=== PATIENT | female | born 1995 | race Caucasian/White ===

== ENCOUNTER 2023-03-25 09:02 | Outpatient (OUT) | payer OTHER, SELFPAY ==
--- NOTE | 2023-03-25 10:35 | P.CN_ITS ---
Consult Note: HPI Data of Consult Patient: new to practice Consult date: 03/25/23 Requesting Physician: Violette Hernadez MD Primary Care Provider: Yossi Golden MD Consult Narrative Reason for consult: low back and bilateral leg pain and numbness, mid back and neck pain Narrative: this is a pleasant 27-year-old female who presents for evaluation. She notes various pains, including pain throughout the low back that radiates into the bilateral lower extremities and causes numbness and tingling. Lumbar MRI was reviewed, which is significant for a disc bulge with resultant canal stenosis at L4-L5. She completed physical therapy for this and has engaged in provider directed home exercises for greater than three months, but this has not helped resolve the problem. She actually was hospitalized twice for these symptoms. She also notes increasing pain throughout her neck and mid back. She has trialed various [id number] medications, including Tylenol and ibuprofen, which provide limited relief. She otherwise denies adverse medication side affects or loss of bowel or bladder control. cc:: CC: Violette Hernadez MD Review of Systems ROS Status of ROS 10 or more systems reviewed and unremarkable except as noted in history and below Musculoskeletal Reports: joint pain (left knee) Exam Constitutional Common normals: no apparent distress, oriented x3 and healthy appearing Neck & C-Spine Other: tenderness throughout the cervical spine and paraspinal musculature. Pain is elicited with flexion, extension, and lateral rotation of the cervical spine. Facet loading maneuvers are positive bilaterally. Respiratory Common normals: normal respiratory effort Effort & inspection: able to speak in complete sentences Back & Pelvis Other: tenderness to palpation throughout the lumbar spine and paraspinal musculature. Pain is elicited with flexion, extension, and lateral rotation of the lumbar spine. Facet loading maneuvers are positive bilaterally. Strength noted to be unremarkable throughout the bilateral lower extremities except for decreased strength rated at four out of five in the bilateral quadriceps femoris. Sensation noted to be unremarkable throughout the bilateral lower extremities except for dysesthesia in the bilateral L4, L5 dermatomal distributions. coordination remains intact. Gait remains nonantalgic. Extremity Common normals: normal to inspection Neuro Common normals: oriented x3, CN's II-XII intact bilaterally and no focal motor deficits Psych Common normals: mental status grossly normal and cooperative Assessment and Plan Assessment and Plan (1) Lumbar stenosis with neurogenic claudication: (2) Lumbar disc displacement without myelopathy: (3) Lumbar spondylosis: (4) Thoracic back pain: (5) Cervicalgia: Plan this is a pleasant 27-year-old female who presents for evaluation. She has failed physical and medical modalities, as noted above. In terms of her low back pain with radiation into the bilateral lower extremities, given her symptom atology, imaging findings, and failure to respond to conservative measures, including physical therapy and provider directed home exercises, it is prudent to attempt bilateral L4 transforaminal epidural steroid injection to provide analgesia. She is in agreement with this plan. In terms of her new work neck and mid back pain, I would like her to undergo a course of physical therapy twice weekly for 4-6 weeks. I'll also have her undergo an x-ray of the cervical and thoracic spines. She expressed understanding. Medications were reviewed. I will have her trial gabapentin 300 mg 3 times a day. She expressed understanding. She will follow-up after the imaging and procedure are complete.
== END 2023-03-25 09:03 | disposition home or self-care (01) ==
LOC: PM 09:02
PROVIDERS: PCP Family Medicine; Visit Provider Anesthesiology
DX: M54.2 Cervicalgia (principal); M54.6 Pain in thoracic spine; M47.816 Spondylosis without myelopathy or radiculopathy, lumbar region; M51.26 Other intervertebral disc displacement, lumbar region; M48.062 Spinal stenosis, lumbar region with neurogenic claudication
CPT/HCPCS: G0463

== ENCOUNTER 2023-03-25 10:21 | Outpatient (OUT) | payer OTHER, SELFPAY ==
--- NOTE | 2023-03-25 10:29 | XR_ITS ---
The [place] [id number] Patient Name: GAEL RUBY MRN: [id number] date: 1995 Sex: F Assigned Patient Location: [facility] Current Patient Location: [facility] Accession/Order Number: [id number] Exam Date: 03/25/2023 10:35 Report Date: 03/25/2023 11:14 At the request of: LISANDRA GIEDRAGABBY Procedure: XR thoracic spine 2V EXAMINATION: XR thoracic spine 2V HISTORY: Thoracic Back Pain COMPARISON: No relevant comparison available. FINDINGS: BONES: Mild left convex curvature thoracic spine. No fracture, spondylolisthesis, or bone lesion. DISC SPACES: No significant disc height narrowing, subluxation, or endplate abnormality. PARASPINOUS: Negative. No paraspinous abnormality is seen. OTHER: Negative. IMPRESSION: 1. Left convex curvature of thoracic spine, 9 degrees. 2. No acute bone abnormality or significant degenerative changes. Electronically authenticated by: ANA VO Date: 03/25/2023 11:14
--- NOTE | 2023-03-25 10:29 | XR_ITS ---
The [address] [address] Patient Name: GAEL RUBY MRN: [id number] date: 1995 Sex: F Assigned Patient Location: [facility] Current Patient Location: [facility] Accession/Order Number: [id number] Exam Date: 03/25/2023 10:35 Report Date: 03/25/2023 11:11 At the request of: LISANDRA CROCKER Procedure: XR cervical spine 5V EXAMINATION: XR cervical spine 5V HISTORY: Cervicalgia ; chronic neck and upper back pain COMPARISON: No relevant comparison available. FINDINGS: BONES: Straightening of the normal lordotic curvature. No fracture, spondylolisthesis, bone lesion. No significant degenerative facet arthropathy. DISC SPACES: No significant disc height narrowing, subluxation, or endplate abnormality. PARASPINOUS: Negative. No paraspinous abnormality is seen. OTHER: Negative. IMPRESSION: 1. Mild straightening of normal lordotic curvature of cervical spine; positioning versus muscle spasm. 2. No acute bone abnormality or significant degenerative changes. Electronically authenticated by: ANA VO Date: 03/25/2023 11:11
== END 2023-03-25 10:22 | disposition home or self-care (01) ==
LOC: RAD 10:23
PROVIDERS: PCP Family Medicine; Visit Provider Anesthesiology
DX: M54.2 Cervicalgia (principal); M54.6 Pain in thoracic spine
CPT/HCPCS: 72050; 72070; G0463

== ENCOUNTER 2023-04-22 08:32 | Day surgery (SDC) | payer OTHER, SELFPAY ==
[2023-04-22 09:37] VITALS: BP 127/88; PULSE 104; RESP 14; TEMP 36.4; O2SAT 97
[2023-04-22 09:40] LABS: Glucometer 154 mg/dL (74-106)
[2023-04-22] MEDS: BUPIVACAINE HCL 0.25% PF 25 MG/10 ML VIAL INJ (10:32)
[2023-04-22] MEDS: IOHEXOL 240 MG/ML - 10 ML VIAL INJ (10:32)
[2023-04-22] MEDS: LIDOCAINE HCL 2% PF 100 MG/5 ML VIAL INJ (10:32)
[2023-04-22] MEDS: TRIAMCINOLONE ACETONIDE 40 MG/ML VIAL INJ (10:33)
--- NOTE | 2023-04-22 10:34 | W.PM.PROCNOT ---
Date of procedure: 04/22/23 Pre-op diagnosis: Lumbar stenosis with neurogenic claudication Procedure: Procedure: Bilateral L4-5 transforaminal epidural steroid injection Medications: Bupivacaine 0.25% 2cc, lidocaine 1% 1cc, kenalog 80mg The patient was seen and examined in the preoperative holding area.? Informed consent was obtained and placed on the chart.? Patient was brought to the medical procedure unit and placed in the prone position where a timeout was completed verifying the correct patient, procedure site, position, and planned special equipment using sterile aseptic technique.? Under direct fluoroscopic visualization a 25-gauge Quincke tipped spinal needle was advanced at level left L4-5 to the designated neural foramen where contrast dye was injected to show adequate spread.? There was no evidence of vascular or adverse uptake.? Epidural spread was appreciated.? The above-mentioned injectate was then placed in a 1.5 mL aliquot preceded by negative aspiration.? The needle was removed. The same procedure, at the same level, was completed on the opposite side. ? Patient was taken to the postprocedural recovery area and monitored for an appropriate length of time before found suitable for discharge in the accompaniment of a responsible adult. Anesthesia: None Surgeon: Violette Hernadez Pathology: none sent Condition: stable Disposition: no change
[2023-04-22 14:12] VITALS: BP 130/73; BP 139/94; PULSE 91; PULSE 96; RESP 18; O2SAT 94; O2SAT 95
== END 2023-04-22 10:39 | disposition home or self-care (01) ==
LOC: SURGOUT 08:38
PROVIDERS: PCP Family Medicine; Visit Provider Anesthesiology
DX: M48.062 Spinal stenosis, lumbar region with neurogenic claudication (principal)
CPT/HCPCS: 36415; 64483; 82948; Q9966

== ENCOUNTER 2023-05-03 12:58 | Outpatient (OUT) | payer OTHER, SELFPAY ==
--- NOTE | 2023-05-03 13:04 | PM.CN ---
Consult Note: HPI Data of Consult Patient: known to practice within the last 3 years Consult date: 05/03/23 Requesting Physician: GISELA MCGEE NP Primary Care Provider: Yossi Golden MD Consult Narrative Narrative: Patient is here for f/u of chronic low back pain. She had TFESI done 04/22/23 with 80-90% relief of pain continued through today with increased fx. no radiculopathy . Pain today is located only in lower back, worse with ROM. . No new sensorimotor sx or bowel or bladder issues. Medication regimen assists patient to better complete ADLs. Denies adverse medication SE. OARRS reviewed. We did discuss ability to repeat procedure as needed. cc:: CC: GISELA MCGEE NP Review of Systems ROS Status of ROS 10 or more systems reviewed and unremarkable except as noted in history and below Musculoskeletal Reports: back pain PFSH PFS Medical History (Updated 04/11/23 @ 13:13 by Brook Oswald) Surgical History Meds Home Medications and Allergies Home Medications Medication Instructions Recorded Confirmed Type albuterol 90 mcg/actuation aerosol mcg inhalation QDAY PRN dyspnea 03/25/23 History inhaler black cohosh 200 mg capsule 160 mg PO DAILY 03/25/23 04/22/23 History dulaglutide 3 mg/0.5 mL 3 mg subcut QWEEK 03/25/23 04/22/23 History subcutaneous pen injector (Trulicity) gabapentin 300 mg capsule 300 mg PO TID 03/25/23 04/22/23 History glipizide 10 mg tablet 10 mg PO BID 03/25/23 04/22/23 History hydroxyzine HCl 25 mg tablet 25 mg PO TID PRN itching 03/25/23 04/22/23 History omeprazole 40 mg capsule,delayed 40 mg PO DAILY 03/25/23 04/22/23 History release sertraline 50 mg tablet (Zoloft) 50 mg PO DAILY 03/25/23 04/22/23 History tizanidine 4 mg capsule (Zanaflex) 4 mg PO TID PRN muscle spasticity 03/25/23 04/22/23 History Allergies Allergy/AdvReac Type Severity Reaction Status Date / Time amoxicillin Allergy Nausea Verified 03/25/23 14:12 egg Allergy Abdominal Verified 03/25/23 14:12 Pain ketorolac Allergy dyspnea Verified 03/25/23 14:12 latex Allergy itching Verified 03/25/23 14:12 meperidine [From Demerol] Allergy shortness Verified 03/25/23 14:12 of breath Penicillins Allergy Rash Verified 03/25/23 14:12 Exam Constitutional Documenting provider has reviewed patient's vital signs: yes Common normals: no apparent distress, oriented x3, no limitations, healthy appearing, alert and well nourished General appearance: cooperative, comfortable and well developed Nutritional appearance: overweight Orientation/consciousness: Yes awake, Yes oriented to person, Yes oriented to place and Yes oriented to time HENMT Common normals: normocephalic and moist oral mucous membranes Respiratory Common normals: normal respiratory effort, no retractions and no use of accessory muscles Effort & inspection: able to speak in complete sentences and symmetric chest movement Back & Pelvis Lumbar spine/lower back: normal to inspection, lumbar ROM normal, pain with ROM, paraspinal muscle tenderness and straight leg raise negative bilaterally Other: mildly positive facet loading pain bilat lumbar muscle strength 5/5 bilat with intact sensation Extremity Common normals: normal to inspection, full ROM, normal capillary refill and no pedal edema Assessment and Plan Assessment and Plan (1) Lumbar stenosis with neurogenic claudication: (2) Lumbar disc displacement without myelopathy: (3) Lumbar spondylosis: Plan f/u 6 months or sooner if needed
== END 2023-05-03 12:59 | disposition home or self-care (01) ==
LOC: PM 13:00
PROVIDERS: PCP Family Medicine; Visit Provider Nurse Practitioner
DX: M47.816 Spondylosis without myelopathy or radiculopathy, lumbar region (principal); M51.26 Other intervertebral disc displacement, lumbar region; M48.062 Spinal stenosis, lumbar region with neurogenic claudication
CPT/HCPCS: G0463

== ENCOUNTER 2023-06-10 18:29 | Emergency (ER) | payer OTHER, SELFPAY ==
[2023-06-10] VITALS (14 sets, daily range): BP systolic 116–149; BP diastolic 65–111; PULSE 110; RESP 18; TEMP 36.7; O2SAT 93–99; BMI 38.0
--- NOTE | 2023-06-10 19:00 | CT_ITS ---
The [address] [address] Patient Name: GAEL RUBY MRN: [id number] date: 1995 Sex: F Assigned Patient Location: ER Current Patient Location: ER Accession/Order Number: [id number] Exam Date: 06/10/2023 19:35 Report Date: 06/10/2023 20:36 At the request of: ASHLI MUSTAFA Procedure: CT abdomen pelvis w con CT ABDOMEN/PELVIS WITH IV CONTRAST. INDICATION: Right lower quad pain. COMPARISON: There are no other studies available for comparison. TECHNIQUE: Contiguous axial images were obtained from the lung bases to the pelvic floor following the intravenous administration of contrast. Coronal and sagittal reformations are provided. Approximately ML ml Omnipaque 350 was administered intravenously. FINDINGS: LOWER LUNGS: Clear. LIVER/BILIARY TREE: No mass. No intrahepatic ductal dilatation. GALLBLADDER: No significant gallbladder wall thickening. No radiopaque stone. CBD: Normal CBD. SPLEEN: Normal in size. PANCREAS: No acute findings. No peripancreatic fluid or inflammation. No pancreatic duct dilatation. No discrete mass. ADRENALS: Normal. KIDNEYS: No hydronephrosis. No radiopaque calculus. STOMACH AND BOWEL: Stomach is unremarkable. No dilated bowel loops. No bowel wall thickening. APPENDIX: Normal appendix. PERITONEAL CAVITY: No fluid. No fat stranding. ABDOMINAL WALL: No subcutaneous stranding. No subcutaneous fluid collection. LYMPH NODES: No mesenteric or retroperitoneal lymphadenopathy by CT criteria. ABDOMINAL AORTA: No aneurysm. PELVIS: No acute abnormality. MUSCULOSKELETAL: No acute osseous abnormality. CT/CT abdomen pelvis w con IMPRESSION: No acute abnormality in the abdomen or pelvis. Normal appendix. Electronically authenticated by: DOT BUSTILLO Date: 06/10/2023 20:36
--- NOTE | 2023-06-10 19:10 | ED.ABDPAIN1 ---
HPI - Abdominal Pain General Chief Complaint: Abdominal Pain Stated Complaint: ABDOMINAL PAIN Time Seen by Provider: 06/10/23 18:47 Source: patient and family Mode of arrival: walk-in Limitations: no limitations History of Present Illness HPI narrative: patient is a 27-year-old female who presents to the emergency department for the evaluation of right-sided abdominal pain. patient states last night she developed pain in the right flank wrapping into the right lower quadrant. She has had no fevers or vomiting but reports nausea. She states anytime she eats she develops diarrhea. She has had a previous cholecystectomy as well as a previous hysterectomy. No medications were taken prior to arrival. She denies any urinary symptoms. Related Data Home Medications Medication Instructions Recorded Confirmed albuterol 90 mcg/actuation aerosol 90 mcg inhalation QDAY PRN dyspnea 03/25/23 06/10/23 inhaler dulaglutide 3 mg/0.5 mL 3 mg subcut QWEEK 03/25/23 06/10/23 [facility] gabap[facility] 300 mg capsule 300 mg PO TID 03/25/23 06/10/23 glipizide 10 mg tablet 10 mg PO BID 03/25/23 06/10/23 hydroxyzine HCl 25 mg tablet 25 mg PO TID PRN itching 03/25/23 06/10/23 omeprazole 40 mg capsule,delayed 40 mg PO DAILY 03/25/23 06/10/23 release sertraline 50 mg tablet (Zoloft) 50 mg PO DAILY 03/25/23 06/10/23 tizanidine 4 mg capsule (Zanaflex) 4 mg PO TID PRN muscle spasticity 03/25/23 06/10/23 Previous Rx's Medication Instructions Recorded dicyclomine 20 mg tablet 20 mg PO QID PRN abdominal pain 06/10/23 #12 tabs promethazine 25 mg tablet 25 mg PO Q6H PRN nausea and 06/10/23 vomiting #12 tabs Allergies Allergy/AdvReac Type Severity Reaction Status Date / Time amoxicillin Allergy Nausea Verified 06/10/23 18:34 egg Allergy Abdominal Verified 06/10/23 18:34 Pain ketorolac Allergy dyspnea Verified 06/10/23 18:34 latex Allergy itching Verified 06/10/23 18:34 meperidine [From Demerol] Allergy shortness Verified 06/10/23 18:34 of breath Penicillins Allergy Rash Verified 06/10/23 18:34 Review of Systems ROS Constitutional Denies: fever or chills Ears, nose, mouth, and throat Denies: throat pain Respiratory Denies: shortness of breath Gastrointestinal Reports: abdominal pain, nausea and diarrhea; Denies: vomiting Musculoskeletal Denies: back pain Integumentary/Breast Denies: rash Neurological Denies: headache Allergic/Immunologic Denies: hives [facility] Medical History (Updated 06/10/23 @ 20:50 by GOPAL Hansen) Surgical History Social History Smoking status: Current every day smoker Exam Narrative Exam Narrative: Gen.: Awake, alert, in no distress Head: Normocephalic, atraumatic ENT: Moist mucous membranes Respiratory: No respiratory distress, lungs clear bilaterally Cardio: Regular rate and rhythm Gastrointestinal: Abdomen is soft, nondistended and tender in the right lower quadrant, no point tenderness. No guarding or rebound. No CVA tenderness noted Extremities: Moves extremities equally Psych: Normal mood and affect Neuro: No focal neuro deficit Skin: Warm, dry, intact Constitutional Vital Signs, click to edit/add: Last Vital Signs Temp 98.1 F 06/10/23 18:34 Pulse 110 H 06/10/23 18:34 Resp 18 06/10/23 18:34 BP 132/96 H 06/10/23 20:00 Pulse Ox 98 06/10/23 20:10 O2 Del Method Room Air 06/10/23 18:34 Course Vital Signs Vital signs: Vital Signs Temperature 98.1 F 06/10/23 18:34 Pulse Rate 110 H 06/10/23 18:34 Respiratory Rate 18 06/10/23 18:34 Blood Pressure 149/111 H 06/10/23 18:34 Pulse Oximetry 98 06/10/23 18:34 Oxygen Delivery Method Room Air 06/10/23 18:34 Temperature 98.1 F 06/10/23 18:34 Pulse Rate 110 H 06/10/23 18:34 Respiratory Rate 18 06/10/23 18:34 Blood Pressure 132/96 H 06/10/23 20:00 Pulse Oximetry 98 06/10/23 20:10 Oxygen Delivery Method Room Air 06/10/23 18:34 MDM - Abdominal Pain MDM Narrative Medical decision making narrative: abdomen is soft and benign, lab studies with no significant abnormalities and CT of the abdomen and pelvis with normal appendix, no other abnormalities noted. Patient is discharged home with Levsin and Phenergan for comfort. Follow-up with PCP and return to the Emergency Room if symptoms change or worsen. She has a soft, benign abdomen at discharge with stable vital signs. Medical Records Attestation: I reviewed the patient's medical records. Lab Data Attestation: I reviewed the patient's lab results. Labs: Lab Results 06/10/23 06/10/23 Range/Units 18:45 19:22 WBC 12.7 H (4.0-11.0) 10^3/uL RBC 4.91 (4.20-5.40) 10^6/uL Hgb 14.9 (12.0-16.0) g/dL Hct 44.6 (36.0-48.0) % MCV 90.8 (81.0-99.0) fL MCH 30.3 (26.7-34.0) pg MCHC 33.4 (29.9-35.2) g/dL RDW 12.9 (11.0-15.0) % Plt Count 322 (150-450) 10^3/uL MPV 10.1 (9.5-13.5) fL Neut % (Auto) 56.8 (43.0-75.0) % Lymph % (Auto) 36.6 (20.5-60.0) % Giles % (Auto) 4.9 (1.7-12.0) % Eos % (Auto) 0.9 (0.9-7.0) % Baso % (Auto) 0.4 (0.2-2.0) % Neut # (Auto) 7.2 H (1.4-6.5) 10^3/uL Lymph # (Auto) 4.6 H (1.2-3.8) 10^3/uL Giles # (Auto) 0.6 (0.3-0.8) 10^3/uL Eos # (Auto) 0.1 (0.0-0.7) 10^3/uL Baso # (Auto) 0.1 (0.0-0.1) 10^3/uL Abs Immat Gran (auto) 0.05 H (0.00-0.03) 10^3/uL Imm/Tot Granulo (auto) 0.4 (0.0-0.5) % Sodium 141 (136-145) mmol/L Potassium 3.8 (3.5-5.1) mmol/L Chloride 103 (98-107) mmol/L Carbon Dioxide 26.7 (21.0-32.0) mmol/L Anion Gap 15.1 BUN 10.0 (7.0-18.0) mg/dL Creatinine 0.77 (0.55-1.02) mg/dL Est GFR ( Amer) >60 (>=60) Est GFR (Non-Af Amer) >60 (>=60) BUN/Creatinine Ratio 13.0 Glucose 109 H (74-106) mg/dL Lactate 1.5 (0.4-2.0) mmol/L Calcium 9.2 (8.5-10.1) mg/dL Total Bilirubin 0.3 (0.2-1.0) mg/dL AST 31 (15-37) U/L ALT 52 (14-59) U/L Alkaline Phosphatase 104 (46-116) U/L Total Protein 7.8 (6.4-8.2) g/dL Albumin 3.8 (3.4-5.0) g/dL Globulin 4.0 g/dL Albumin/Globulin Ratio 0.9 Lipase 252.0 (73.0-393.0) U/L Urine Color Yellow (YELLOW) Urine Clarity Clear (CLEAR) Urine pH 6.0 (5.0-9.0) Ur Specific [place] 1.020 (1.005-1.025) Urine Protein Negative (NEG/TRACE) mg/dL Urine Glucose (UA) Negative (NEGATIVE) mg/dL Urine Ketones Trace A (NEGATIVE) mg/dL Urine Occult Blood Negative (NEGATIVE) Urine Nitrite Negative (NEGATIVE) Urine Bilirubin Negative (NEGATIVE) Urine Urobilinogen 1.0 (0.2-1.0) EU/dL Ur Leukocyte Esterase Negative (NEGATIVE) Imaging Data CT scan - abdomen: Attestation: I have reviewed the pertinent imaging results. Radiologist's impression: Procedure: CT abdomen pelvis w con CT ABDOMEN/PELVIS WITH IV CONTRAST. INDICATION: Right lower quad pain. COMPARISON: There are no other studies available for comparison. TECHNIQUE: Contiguous axial images were obtained from the lung bases to the pelvic floor following the intravenous administration of contrast. Coronal and sagittal reformations are provided. Approximately ML ml Omnipaque 350 was administered intravenously. FINDINGS: LOWER LUNGS: Clear. LIVER/BILIARY TREE: No mass. No intrahepatic ductal dilatation. GALLBLADDER: No significant gallbladder wall thickening. No radiopaque stone. CBD: Normal CBD. SPLEEN: Normal in size. PANCREAS: No acute findings. No peripancreatic fluid or inflammation. No pancreatic duct dilatation. No discrete mass. ADRENALS: Normal. KIDNEYS: No hydronephrosis. No radiopaque calculus. STOMACH AND BOWEL: Stomach is unremarkable. No dilated bowel loops. No bowel wall thickening. APPENDIX: Normal appendix. PERITONEAL CAVITY: No fluid. No fat stranding. ABDOMINAL WALL: No subcutaneous stranding. No subcutaneous fluid collection. LYMPH NODES: No mesenteric or retroperitoneal lymphadenopathy by CT criteria. ABDOMINAL AORTA: No aneurysm. PELVIS: No acute abnormality. MUSCULOSKELETAL: No acute osseous abnormality. IMPRESSION: No acute abnormality in the abdomen or pelvis. Normal appendix. Electronically authenticated by: DOT BUSTILLO Date: 06/10/2023 20:36 Discharge Plan Discharge Chief Complaint: Abdominal Pain Clinical Impression: Abdominal pain Patient Disposition: Home, Self-Care Time of Disposition Decision: 20:50 Condition: Good Prescriptions / Home Meds: New dicyclomine 20 mg tablet 20 mg PO QID PRN (Reason: abdominal pain) Qty: 12 0RF promethazine 25 mg tablet 25 mg PO Q6H PRN (Reason: nausea and vomiting) Qty: 12 0RF No Action omeprazole 40 mg capsule,delayed release(DR/EC) 40 mg PO DAILY Trulicity 3 mg/0.5 mL pen injector 3 mg subcut QWEEK hydroxyzine HCl 25 mg tablet 25 mg PO TID PRN (Reason: itching) glipizide 10 mg tablet 10 mg PO BID tizanidine [Zanaflex] 4 mg capsule 4 mg PO TID PRN (Reason: muscle spasticity) sertraline [Zoloft] 50 mg tablet 50 mg PO DAILY albuterol 90 mcg/actuation aerosol 90 mcg inhalation QDAY PRN (Reason: dyspnea) gabapentin 300 mg capsule 300 mg PO TID Instructions: Abdominal Pain (ED) Stand Alone Forms: Portal Instructions Referrals: Yossi Golden MD [Primary Care Provider] - 1 week
[2023-06-10] MEDS: ONDANSETRON PF 4 MG/2 ML VIAL IV (19:22)
[2023-06-10] MEDS: 0.9 % SODIUM CHLORIDE 1,000 ML 999 ML IV (19:22)
[2023-06-10] MEDS: HYDROMORPHONE HCL 1 MG/ML CARTRIDGE IVP (19:22)
[2023-06-10 19:37] LABS: Hematocrit 44.6 % (36.0-48.0); Hemoglobin 14.9 g/dL (12.0-16.0); Mean Corpuscular HGB Conc 33.4 g/dL (29.9-35.2); Mean Corpuscular Hemoglobin 30.3 pg (26.7-34.0); Mean Corpuscular Volume 90.8 fL (81.0-99.0); Mean Platelet Volume 10.1 fL (9.5-13.5); Platelet Count 322 10^3/uL (150-450); Red Blood Count 4.91 10^6/uL (4.20-5.40); Red Cell Distribution Width 12.9 % (11.0-15.0); White Blood Count 12.7 10^3/uL (4.0-11.0)
[2023-06-10 19:47] LABS: Bilirubin Urine NEGATIVE (NEGATIVE); Blood Urine NEGATIVE (NEGATIVE); Clarity Urine CLEAR (CLEAR); Color Urine YELLOW (YELLOW); Glucose Urine UA NEGATIVE (NEGATIVE); Ketones Urine TRACE mg/dL (NEGATIVE); Leukocyte Esterase Urine NEGATIVE (NEGATIVE); Nitrite Urine NEGATIVE (NEGATIVE); Protein Urine NEGATIVE (NEG/TRACE)
[2023-06-10 20:17] LABS: Lactate/Lactic Acid 1.5 mmol/L (0.4-2.0)
[2023-06-10 20:24] LABS: Alanine Aminotransferase 52 U/L (14-59); Albumin Globulin Ratio 0.9; Albumin Level 3.8 g/dL (3.4-5.0); Alkaline Phosphatase 104 U/L (46-116); Anion Gap 15.1; Aspartate Amino Transferase 31 U/L (15-37); Bilirubin Total 0.3 mg/dL (0.2-1.0); Calcium 9.2 mg/dL (8.5-10.1); Carbon Dioxide 26.7 mmol/L (21.0-32.0); Chloride 103 mmol/L (98-107); Estimated GFR (African America >60 (>=60); Estimated GFR (Non-African Ame >60 (>=60); Glucose 109 mg/dL (74-106); Potassium 3.8 mmol/L (3.5-5.1); Sodium 141 mmol/L (136-145); Total Protein 7.8 g/dL (6.4-8.2)
[2023-06-10] MEDS: HYOSCYAMINE SULFATE 0.125 MG TAB.SUBL SL (20:27)
[2023-06-10] MEDS: PROMETHAZINE HCL 25 MG/ML VIAL 12.5 MG IV (20:27)
[2023-06-10 20:47] LABS: Urine Microscopic Indicated NO
[2023-06-10] MEDS: DICYCLOMINE HCL 10 MG CAPSULE 20 MG PO (21:23)
[2023-06-10 21:27] LABS: Segmented Neut Absolute Manual 7.62 10^3/uL (1.4-6.5)
[2023-06-10 21:28] LABS: Lymphocytes Absolute Manual 4.82 10^3/uL (1.20-3.80); Monocytes Absolute Manual 0.25 10^3/uL (0.30-0.80)
== END 2023-06-10 21:28 | disposition home or self-care (01) ==
PROVIDERS: Physician Assistant; Emergency Provider Emergency Medicine; PCP Family Medicine
DX: R10.9 Unspecified abdominal pain (principal); Z79.899 Other long term (current) drug therapy; Z79.85 Long-term (current) use of injectable non-insulin antidiabetic drugs; F17.210 Nicotine dependence, cigarettes, uncomplicated
CPT/HCPCS: 36415; 74177; 80053; 81003; 83605; 83690; 85025; 85027; 96361; 96374; 96375; 99285; J1170; Q9967

== ENCOUNTER 2024-01-15 03:16 | Emergency (ER) | payer OTHER, SELFPAY ==
[2024-01-15 03:25] VITALS: BP 167/100; PULSE 104; TEMP 36.5; O2SAT 96; BMI 39.5
--- NOTE | 2024-01-15 04:00 | PC.NURSE ---
Pt presents to ER for lower right sided abdominal pain and diarrhea Pt has had a cholecystectomy and a hysterectomy Pt states she has had diarrhea for a few days but the pain started at 2200 last night and she was not able to go to sleep so she came into the ER Pt's at bedside states this has been an ongoing problem for over several weeks Upon further conversation it is found that pt has been to three different emergency rooms since the beginning of the month for this problem Pt states here symptoms come and go depending on what she eats Pt states she called Dr. Medeiros's office and they told her they would not see her unless the symptoms have been going on for over 3 months Pt's spouse at bedside expressed concern and the desire for a GI evaluation to which this nurse agreed is probably in the pt's future Pt and spouse were reassured that this nurse will give them phone numbers to set up and GI follow up before discharge Pt is able to ambulate to the restroom without assistance from this nurse, pt given permission to do so
[2024-01-15] MEDS: 0.9 % SODIUM CHLORIDE 1,000 ML 1000 ML IV (04:09)
[2024-01-15] MEDS: ONDANSETRON PF 4 MG/2 ML VIAL IV (04:09)
[2024-01-15 04:19] LABS: Basophils Percent Auto 0.5 % (0.2-2.0); Eosinophils Absolute Auto 0.1 10^3/uL (0.0-0.7); Eosinophils Percent Auto 1.3 % (0.9-7.0); Hematocrit 40.9 % (36.0-48.0); Hemoglobin 13.6 g/dL (12.0-16.0); Immature Granulocytes Abs Auto 0.06 10^3/uL (0.00-0.03); Immature Granulocytes Pct Auto 0.7 % (0.0-0.5); Lymphocytes Absolute Auto 3.4 10^3/uL (1.2-3.8); Lymphocytes Percent Auto 39.7 % (20.5-60.0); Mean Corpuscular HGB Conc 33.3 g/dL (29.9-35.2); Mean Corpuscular Hemoglobin 30.1 pg (26.7-34.0); Mean Corpuscular Volume 90.5 fL (81.0-99.0); Mean Platelet Volume 10.8 fL (9.5-13.5); Monocytes Absolute Auto 0.5 10^3/uL (0.3-0.8); Neutrophils Absolute Auto 4.5 10^3/uL (1.4-6.5); Neutrophils Percent Auto 51.8 % (43.0-75.0); Platelet Count 272 10^3/uL (150-450); Red Blood Count 4.52 10^6/uL (4.20-5.40); Red Cell Distribution Width 12.8 % (11.0-15.0); White Blood Count 8.6 10^3/uL (4.0-11.0)
[2024-01-15 04:20] LABS: Bilirubin Urine NEGATIVE (NEGATIVE); Blood Urine NEGATIVE (NEGATIVE); Clarity Urine CLEAR (CLEAR); Color Urine YELLOW (YELLOW); Glucose Urine UA NEGATIVE (NEGATIVE); Ketones Urine NEGATIVE (NEGATIVE); Leukocyte Esterase Urine NEGATIVE (NEGATIVE); Nitrite Urine NEGATIVE (NEGATIVE); Protein Urine NEGATIVE (NEG/TRACE); Urobilinogen Urine 0.2 EU/dL (0.2-1.0)
[2024-01-15 04:26] LABS: Bacteria Urine NONE SEEN #/HPF (NONE SEEN); Crystals Seen? None Seen #/HPF (None Seen); Mucus Urine TRACE (NONE SEEN); RBC Urine NONE SEEN #/HPF (0-2); Squamous Epithelial Cell Urine RARE #/LPF (NONE/RARE); WBC Urine 0-2 #/HPF (NONE SEEN)
[2024-01-15 04:27] LABS: Amorphous Sediment Urine RARE; Cast Seen? NONE SEEN #/LPF (NONE SEEN); Urine Culture Indicated NO
[2024-01-15 04:28] LABS: Anion Gap 13.3; BUN Creatinine Ratio 16.9; Calcium 9.5 mg/dL (8.5-10.1); Carbon Dioxide 28.3 mmol/L (21.0-32.0); Chloride 102 mmol/L (98-107); Estimated GFR (African America >60 (>=60); Estimated GFR (Non-African Ame >60 (>=60); Glucose 185 mg/dL (74-106); Potassium 3.6 mmol/L (3.5-5.1); Sodium 140 mmol/L (136-145)
--- NOTE | 2024-01-15 05:03 | ED_ITS ---
HPI HPI - General Adult General Chief complaint: Abdominal Pain Stated complaint: ABD PAIN Time Seen by Provider: 01/15/24 03:29 Source: patient Mode of arrival: walk-in Limitations: no limitations History of Present Illness HPI narrative: 28 female presents for diarrhea. She has been having watery stools multiple times a day for the last several weeks. She was seen at another hospital emergency department and at that time she was told she had a stomach virus. She has not given a stool specimen. She has had no hematochezia or fever. No recent travel or hospitalization or antibiotic use. Related Data Home Medications ?Medication ?Instructions ?Recorded ?Confirmed albuterol 90 mcg/actuation aerosol 90 mcg inhalation QDAY PRN dyspnea 03/25/23 06/10/23 inhaler dulaglutide 3 mg/0.5 mL 3 mg subcut QWEEK 03/25/23 06/10/23 subcutaneous pen injector (Trulicity) gabapentin 300 mg capsule 300 mg PO TID 03/25/23 06/10/23 glipizide 10 mg tablet 10 mg PO BID 03/25/23 06/10/23 hydroxyzine HCl 25 mg tablet 25 mg PO TID PRN itching 03/25/23 06/10/23 omeprazole 40 mg capsule,delayed 40 mg PO DAILY 03/25/23 06/10/23 release sertraline 50 mg tablet (Zoloft) 50 mg PO DAILY 03/25/23 06/10/23 tizanidine 4 mg capsule (Zanaflex) 4 mg PO TID PRN muscle spasticity 03/25/23 06/10/23 Previous Rx's ?Medication ?Instructions ?Recorded dicyclomine 20 mg tablet 20 mg PO QID PRN abdominal pain 06/10/23 #12 tabs promethazine 25 mg tablet 25 mg PO Q6H PRN nausea and 06/10/23 vomiting #12 tabs Allergies Allergy/AdvReac Type Severity Reaction Status Date / Time amoxicillin Allergy Nausea Verified 01/15/24 03:24 egg Allergy Abdominal Verified 01/15/24 03:24 Pain ketorolac Allergy dyspnea Verified 01/15/24 03:24 latex Allergy itching Verified 01/15/24 03:24 meperidine [From Demerol] Allergy shortness Verified 01/15/24 03:24 of breath Penicillins Allergy Rash Verified 01/15/24 03:24 Opioid HPI Opioid Management Most Recent Opioid Data: Last Pain Scale 4 04/22/23 09:37 Review of Systems ROS Narrative A ten point review of systems is negative except as noted above. 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 - Acquired stenosis of unspecified nasolacrimal duct (ICD-10) H/O thrombosis ?Z86.718 - Personal history of other venous thrombosis and embolism (ICD-10) Low back pain ?M54.50 - Low back pain, unspecified (ICD-10) Heartburn ?R12 - Heartburn (ICD-10) Anxiety ?F41.9 - Anxiety disorder, unspecified (ICD-10) Acid reflux ?K21.9 - Gastro-esophageal reflux disease without esophagitis (ICD-10) Diabetes ?E11.9 - Type 2 diabetes mellitus without complications (ICD-10) Smoker ?F17.200 - Nicotine dependence, unspecified, uncomplicated (ICD-10) Surgical History Social History Smoking status: Current every day smoker Exam Narrative Exam Narrative: Nurses note and vital signs reviewed and patient is not hypoxic. General: The patient appears well and in no apparent distress. Patient is resting comfortably on cart. Skin: Warm, dry, no pallor noted. There is no rash noted. Head: Normocephalic, atraumatic Eye: Normal conjunctiva, no drainage Ears, Nose, Mouth, and Throat: oral mucosa is moist. Nares patent. Cardiovascular: Regular Rate and Rhythm Respiratory: Patient is in no distress, no accessory muscle use, lungs are clear to auscultation, no wheezing, rales or rhonchi Back: non-tender GI: Soft and nontender Musculoskeletal: The patient has no evidence of calf tenderness, no pitting criss ma, symmetrical pulses noted bilaterally Neurological: A&O, normal speech Psychiatric: Cooperative Constitutional Vital Signs, click to edit/add: Last Vital Signs Temp 97.7 F 01/15/24 03:25 Pulse 104 H 01/15/24 03:25 Resp 18 01/15/24 03:25 BP 167/100 H 01/15/24 03:25 Pulse Ox 96 01/15/24 03:25 O2 Del Method Room Air 01/15/24 03:25 Course Vital Signs Vital signs: Vital Signs Temperature 97.7 F 01/15/24 03:25 Pulse Rate 104 H 01/15/24 03:25 Respiratory Rate 18 01/15/24 03:25 Blood Pressure 167/100 H 01/15/24 03:25 Pulse Oximetry 96 01/15/24 03:25 Oxygen Delivery Method Room Air 01/15/24 03:25 Temperature 97.7 F 01/15/24 03:25 Pulse Rate 104 H 01/15/24 03:25 Respiratory Rate 18 01/15/24 03:25 Blood Pressure 167/100 H 01/15/24 03:25 Pulse Oximetry 96 01/15/24 03:25 Oxygen Delivery Method Room Air 01/15/24 03:25 Medical Decision Making MDM Narrative Medical decision making narrative: Blood work is essentially normal. She was given IV fluids and she will follow-up with her PCP. Treatment diagnosis and follow-up were discussed with the patient. Lab Data Lab results reviewed: Yes I reviewed the patient's lab results Labs: Lab Results 01/15/24 Range/Units 04:00 WBC 8.6 (4.0-11.0) 10^3/uL RBC 4.52 (4.20-5.40) 10^6/uL Hgb 13.6 (12.0-16.0) g/dL Hct 40.9 (36.0-48.0) % MCV 90.5 (81.0-99.0) fL MCH 30.1 (26.7-34.0) pg MCHC 33.3 (29.9-35.2) g/dL RDW 12.8 (11.0-15.0) % Plt Count 272 (150-450) 10^3/uL MPV 10.8 (9.5-13.5) fL Neut % (Auto) 51.8 (43.0-75.0) % Lymph % (Auto) 39.7 (20.5-60.0) % [place] % (Auto) 6.0 (1.7-12.0) % Eos % (Auto) 1.3 (0.9-7.0) % Baso % (Auto) 0.5 (0.2-2.0) % Neut # (Auto) 4.5 (1.4-6.5) 10^3/uL Lymph # (Auto) 3.4 (1.2-3.8) 10^3/uL [place] # (Auto) 0.5 (0.3-0.8) 10^3/uL Eos # (Auto) 0.1 (0.0-0.7) 10^3/uL Baso # (Auto) 0.0 (0.0-0.1) 10^3/uL Abs Immat Gran (auto) 0.06 H (0.00-0.03) 10^3/uL Imm/Tot Granulo (auto) 0.7 H (0.0-0.5) % Sodium 140 (136-145) mmol/L Potassium 3.6 (3.5-5.1) mmol/L Chloride 102 (98-107) mmol/L Carbon Dioxide 28.3 (21.0-32.0) mmol/L Anion Gap 13.3 BUN 12.0 (7.0-18.0) mg/dL Creatinine 0.71 (0.55-1.02) mg/dL Est GFR ( Amer) >60 (>=60) Est GFR (Non-Af Amer) >60 (>=60) BUN/Creatinine Ratio 16.9 Glucose 185 H (74-106) mg/dL Calcium 9.5 (8.5-10.1) mg/dL Urine Color Yellow (YELLOW) Urine Clarity Clear (CLEAR) Urine pH 6.0 (5.0-9.0) Ur Specific [place] 1.020 (1.005-1.025) Urine Protein Negative (NEG/TRACE) mg/dL Urine Glucose (UA) Negative (NEGATIVE) mg/dL Urine Ketones Negative (NEGATIVE) mg/dL Urine Occult Blood Negative (NEGATIVE) Urine Nitrite Negative (NEGATIVE) Urine Bilirubin Negative (NEGATIVE) Urine Urobilinogen 0.2 (0.2-1.0) EU/dL Ur Leukocyte Esterase Negative (NEGATIVE) Urine RBC None seen (0-2) #/HPF Urine WBC 0-2 A (NONE SEEN) #/HPF Ur Squamous Epith Cells Rare (NONE/RARE) #/LPF Urine Crystals None seen (None Seen) #/HPF Amorphous Sediment Rare Urine Bacteria None seen (NONE SEEN) #/HPF Urine Casts None seen (NONE SEEN) #/LPF Urine Mucus Trace A (NONE SEEN) Ur Culture Indicated? No Discharge Plan Discharge Stand Alone Forms: Portal Instructions Chief Complaint: Abdominal Pain Clinical Impression: Diarrhea Patient Disposition: Home, Self-Care Time of Disposition Decision: 05:02 Condition: Good Mode of Transportation: Private Vehicle Prescriptions / Home Meds: No Action dicyclomine 20 mg tablet 20 mg PO QID PRN (Reason: abdominal pain) Qty: 12 0RF promethazine 25 mg tablet 25 mg PO Q6H PRN (Reason: nausea and vomiting) Qty: 12 0RF omeprazole 40 mg capsule,delayed release(DR/EC) 40 mg PO DAILY Trulicity 3 mg/0.5 mL pen injector 3 mg subcut QWEEK hydroxyzine HCl 25 mg tablet 25 mg PO TID PRN (Reason: itching) glipizide 10 mg tablet 10 mg PO BID tizanidine [Zanaflex] 4 mg capsule 4 mg PO TID PRN (Reason: muscle spasticity) sertraline [Zoloft] 50 mg tablet 50 mg PO DAILY albuterol 90 mcg/actuation aerosol 90 mcg inhalation QDAY PRN (Reason: dyspnea) gabapentin 300 mg capsule 300 mg PO TID Print Language: Djib[place]ian Instructions: Acute Diarrhea (ED) Referrals: Yossi Golden MD [Primary Care Provider] - 1 week
[2024-01-15 07:30] LABS: Adenovirus F 40/41 NOT DETECTED (NOT DETECTE); Astrovirus NOT DETECTED (NOT DETECTE); Campylobacter NOT DETECTED (NOT DETECTE); Cryptosporidium NOT DETECTED (NOT DETECTE); Cyclospora cayetanensis NOT DETECTED (NOT DETECTE); Entamoeba histolytica NOT DETECTED (NOT DETECTE); Enteroaggregative E.coli NOT DETECTED (NOT DETECTE); Enteropathogenic E.coli NOT DETECTED (NOT DETECTE); Enterotoxigenic E. coli NOT DETECTED (NOT DETECTE); Giardia lamblia NOT DETECTED (NOT DETECTE); Norovirus GI/GII NOT DETECTED (NOT DETECTE); Plesiomonas shigelloides NOT DETECTED (NOT DETECTE); Rotavirus A NOT DETECTED (NOT DETECTE); Salmonella NOT DETECTED (NOT DETECTE); Sapovirus NOT DETECTED (NOT DETECTE); Shiga-like toxin-producing E.C NOT DETECTED (NOT DETECTE); Shigella/Enteroinvasive E.coli NOT DETECTED (NOT DETECTE); Vibrio NOT DETECTED (NOT DETECTE); Vibrio cholerae NOT DETECTED (NOT DETECTE)
[2024-01-15 07:32] LABS: Yersinia enterocolitica DETECTED (NOT DETECTE)
== END 2024-01-15 05:17 | disposition home or self-care (01) ==
PROVIDERS: Emergency Provider Emergency Medicine; PCP Family Medicine
DX: A04.6 Enteritis due to Yersinia enterocolitica (principal); Z79.899 Other long term (current) drug therapy; Z86.14 Personal history of Methicillin resistant Staphylococcus aureus infection; Z86.718 Personal history of other venous thrombosis and embolism; F41.9 Anxiety disorder, unspecified; K21.9 Gastro-esophageal reflux disease without esophagitis; F17.210 Nicotine dependence, cigarettes, uncomplicated
CPT/HCPCS: 36415; 80048; 81001; 85025; 87045; 87046; 87427; 87507; 96374; 99284

== ENCOUNTER 2024-01-20 21:41 | Emergency (ER) | payer OTHER, SELFPAY ==
[2024-01-20 21:48] VITALS: BP 169/112; PULSE 112; TEMP 36.8; O2SAT 98; BMI 39.5
[2024-01-20] MEDS: MORPHINE SULFATE 2 MG/ML SYRINGE 4 MG IV (22:37)
[2024-01-20] MEDS: 0.9 % SODIUM CHLORIDE 1,000 ML 999 ML IV (22:37)
[2024-01-20] MEDS: ONDANSETRON PF 4 MG/2 ML VIAL IV (22:37)
[2024-01-20 22:41] VITALS: BP 139/97
[2024-01-20 22:50] LABS: Basophils Absolute Auto 0.1 10^3/uL (0.0-0.1); Basophils Percent Auto 0.5 % (0.2-2.0); Eosinophils Absolute Auto 0.1 10^3/uL (0.0-0.7); Eosinophils Percent Auto 1.3 % (0.9-7.0); Hematocrit 42.8 % (36.0-48.0); Hemoglobin 14.3 g/dL (12.0-16.0); Immature Granulocytes Abs Auto 0.04 10^3/uL (0.00-0.03); Immature Granulocytes Pct Auto 0.4 % (0.0-0.5); Lymphocytes Absolute Auto 3.7 10^3/uL (1.2-3.8); Lymphocytes Percent Auto 33.2 % (20.5-60.0); Mean Corpuscular HGB Conc 33.4 g/dL (29.9-35.2); Mean Corpuscular Hemoglobin 30.2 pg (26.7-34.0); Mean Corpuscular Volume 90.5 fL (81.0-99.0); Monocytes Absolute Auto 0.6 10^3/uL (0.3-0.8); Neutrophils Absolute Auto 6.6 10^3/uL (1.4-6.5); Neutrophils Percent Auto 59.6 % (43.0-75.0); Platelet Count 300 10^3/uL (150-450); Red Blood Count 4.73 10^6/uL (4.20-5.40)
--- NOTE | 2024-01-20 23:01 | ED_ITS ---
HPI - Abdominal Pain General Chief Complaint: Abdominal Pain Stated Complaint: abdominal pain Time Seen by Provider: 01/20/24 21:56 Source: patient Mode of arrival: walk-in Limitations: no limitations History of Present Illness HPI narrative: 28-year-old female to the emergency department with chief complaint of abdominal pain. Patient reports that since the end of October she has had intermittent right lower quadrant abdominnal pain. She is also had diarrhea, malaise, and nausea. She reports that the pain comes and goes. She reports that she has been seen several times at several different emergency departments for this. 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 She has been taking Zofran and Bentyl for it. Pain recurred tonight. She denies . She denies any Vaginal pain or vaginal bleeding. Related Data Home Medications ?Medication ?Instructions ?Recorded ?Confirmed albuterol 90 mcg/actuation aerosol 90 mcg inhalation QDAY PRN dyspnea 03/25/23 06/10/23 inhaler dulaglutide 3 mg/0.5 mL 3 mg subcut QWEEK 03/25/23 01/20/24 [facility] gabapentin 300 mg capsule 300 mg PO TID 03/25/23 06/10/23 glipizide 10 mg tablet 10 mg PO BID 03/25/23 01/20/24 hydroxyzine HCl 25 mg tablet 25 mg PO TID PRN itching 03/25/23 01/20/24 omeprazole 40 mg capsule,delayed 40 mg PO DAILY 03/25/23 01/20/24 release sertraline 50 mg tablet (Zoloft) 50 mg PO DAILY 03/25/23 01/20/24 tizanidine 4 mg capsule (Zanaflex) 4 mg PO TID PRN muscle spasticity 03/25/23 01/20/24 hyoscyamine sulfate 0.375 mg mg PO 01/20/24 tablet,extended release,12 hr ondansetron HCl 4 mg tablet mg 01/20/24 Previous Rx's ?Medication ?Instructions ?Recorded dicyclomine 20 mg tablet 20 mg PO QID PRN abdominal pain 06/10/23 #12 tabs promethazine 25 mg tablet 25 mg PO Q6H PRN nausea and 06/10/23 vomiting #12 tabs ciprofloxacin HCl 500 mg tablet 500 mg PO BID #14 tabs 01/15/24 (Cipro) oxycodone-acetaminophen 5 mg-325 1 tab PO Q6H PRN pain #12 tabs 01/21/24 mg tablet (Percocet) Allergies Allergy/AdvReac Type Severity Reaction Status Date / Time amoxicillin Allergy Nausea Verified 01/20/24 21:50 egg Allergy Abdominal Verified 01/20/24 21:50 Pain ketorolac Allergy dyspnea Verified 01/20/24 21:50 latex Allergy itching Verified 01/20/24 21:50 meperidine [From Demerol] Allergy shortness Verified 01/20/24 21:50 of breath Penicillins Allergy Rash Verified 01/20/24 21:50 Review of Systems ROS Status of ROS 10 or more systems reviewed and unremark able except as noted in history and below 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 - Acquired stenosis of unspecified nasolacrimal duct (ICD-10) H/O thrombosis ?Z86.718 - Personal history of other venous thrombosis and embolism (ICD-10) Low back pain ?M54.50 - Low back pain, unspecified (ICD-10) Heartburn ?R12 - Heartburn (ICD-10) Anxiety ?F41.9 - Anxiety disorder, unspecified (ICD-10) Acid reflux ?K21.9 - Gastro-esophageal reflux disease without esophagitis (ICD-10) Diabetes ?E11.9 - Type 2 diabetes mellitus without complications (ICD-10) Smoker ?F17.200 - Nicotine dependence, unspecified, uncomplicated (ICD-10) Surgical History Social History Smoking status: Current every day smoker Exam Constitutional Vital Signs, click to edit/add: Last Vital Signs Temp 98.3 F 01/20/24 21:48 Pulse 112 H 01/20/24 21:48 Resp 18 01/20/24 21:48 BP 139/97 H 01/20/24 22:41 Pulse Ox 98 01/20/24 21:48 Course Vital Signs Vital signs: Vital Signs Temperature 98.3 F 01/20/24 21:48 Pulse Rate 112 H 01/20/24 21:48 Respiratory Rate 18 01/20/24 21:48 Blood Pressure 169/112 H 01/20/24 21:48 Pulse Oximetry 98 01/20/24 21:48 Temperature 98.3 F 01/20/24 21:48 Pulse Rate 112 H 01/20/24 21:48 Respiratory Rate 18 01/20/24 21:48 Blood Pressure 139/97 H 01/20/24 22:41 Pulse Oximetry 98 01/20/24 21:48 MDM - Abdominal Pain MDM Narrative Medical decision making narrative: 28-year-old female to the emergency Department chief complaint of right lower quadrant abdominal pain. Vital stable, the patient is afebrile. Her abdominal examination is benign. Beep was used to review her Emergency Department visits of which there are eight over the last two months. She has had multiple C T scans and lab draws. She had recent negative test. I discussed with the patient. Yersenia can cause Pseudoappendicitis. She is not yet completely treated. I do not believe there is any reason for repeat imaging at this time and the patient agrees. We'll proceed with symptom control, basic labs, fluids. Patient agrees with this plan. Labwork reviewed and noted. She has trace elevation of the ALT, AST, lipase. Otherwise unremarkable. Symptoms controlled. She felt better after fluids. Her abdomen remains benign. Discussed expected clinical course. Discussed need for follow-up with PCP. She is prescribed some pain medication. Return precautions were discussed. All questions were answered. The patient was discharged home. Lab Data Attestation: I reviewed the patient's lab results. Labs: Lab Results 01/20/24 Range/Units 22:30 WBC 11.0 (4.0-11.0) 10^3/uL RBC 4.73 (4.20-5.40) 10^6/uL Hgb 14.3 (12.0-16.0) g/dL Hct 42.8 (36.0-48.0) % MCV 90.5 (81.0-99.0) fL MCH 30.2 (26.7-34.0) pg MCHC 33.4 (29.9-35.2) g/dL RDW 13.0 (11.0-15.0) % Plt Count 300 (150-450) 10^3/uL MPV 11.0 (9.5-13.5) fL Neut % (Auto) 59.6 (43.0-75.0) % Lymph % (Auto) 33.2 (20.5-60.0) % [place] % (Auto) 5.0 (1.7-12.0) % Eos % (Auto) 1.3 (0.9-7.0) % Baso % (Auto) 0.5 (0.2-2.0) % Neut # (Auto) 6.6 H (1.4-6.5) 10^3/uL Lymph # (Auto) 3.7 (1.2-3.8) 10^3/uL [place] # (Auto) 0.6 (0.3-0.8) 10^3/uL Eos # (Auto) 0.1 (0.0-0.7) 10^3/uL Baso # (Auto) 0.1 (0.0-0.1) 10^3/uL Abs Immat Gran (auto) 0.04 H (0.00-0.03) 10^3/uL Imm/Tot Granulo (auto) 0.4 (0.0-0.5) % Sodium 137 (136-145) mmol/L Potassium 3.8 (3.5-5.1) mmol/L Chloride 100 (98-107) mmol/L Carbon Dioxide 25.2 (21.0-32.0) mmol/L Anion Gap 15.6 BUN 10.0 (7.0-18.0) mg/dL Creatinine 0.78 (0.55-1.02) mg/dL Est GFR ( Amer) >60 (>=60) Est GFR (Non-Af Amer) >60 (>=60) BUN/Creatinine Ratio 12.8 Glucose 248 H (74-106) mg/dL Calcium 9.8 (8.5-10.1) mg/dL Total Bilirubin 0.5 (0.2-1.0) mg/dL AST 73 H (15-37) U/L ALT 60 H (14-59) U/L Alkaline Phosphatase 101 (46-116) U/L Total Protein 8.3 H (6.4-8.2) g/dL Albumin 3.5 (3.4-5.0) g/dL Globulin 4.8 g/dL Albumin/Globulin Ratio 0.7 Lipase 92.0 H (16.0-77.0) U/L Discharge Plan Discharge Stand Alone Forms: Portal Instructions Chief Complaint: Abdominal Pain Clinical Impression: 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, Abdominal pain Patient Disposition: Home, Self-Care Time of Disposition Decision: 01:30 Condition: Good Mode of Transportation: Private Vehicle Prescriptions / Home Meds: New oxycodone-acetaminophen [Percocet] 5-325 mg tablet 1 tab PO Q6H PRN (Reason: pain) Qty: 12 0RF No Action dicyclomine 20 mg tablet 20 mg PO QID PRN (Reason: abdominal pain) Qty: 12 0RF promethazine 25 mg tablet 25 mg PO Q6H PRN (Reason: nausea and vomiting) Qty: 12 0RF ciprofloxacin HCl [Cipro] 500 mg tablet 500 mg PO BID Qty: 14 0RF omeprazole 40 mg capsule,delayed release(DR/EC) 40 mg PO DAILY Trulicity 3 mg/0.5 mL pen injector 3 mg subcut QWEEK hydroxyzine HCl 25 mg tablet 25 mg PO TID PRN (Reason: itching) glipizide 10 mg tablet 10 mg PO BID tizanidine [Zanaflex] 4 mg capsule 4 mg PO TID PRN (Reason: muscle spasticity) sertraline [Zoloft] 50 mg tablet 50 mg PO DAILY albuterol 90 mcg/actuation aerosol 90 mcg inhalation QDAY PRN (Reason: dyspnea) gabapentin 300 mg capsule 300 mg PO TID ondansetron HCl 4 mg tablet hyoscyamine sulfate 0.375 mg tablet extended release 12 hr PO Print Language: Bulgarian Instructions: Abdominal Pain (ED) Referrals: Yossi Golden MD [Primary Care Provider] - 1 week
[2024-01-20 23:14] LABS: Alanine Aminotransferase 60 U/L (14-59); Albumin Globulin Ratio 0.7; Albumin Level 3.5 g/dL (3.4-5.0); Alkaline Phosphatase 101 U/L (46-116); Anion Gap 15.6; Aspartate Amino Transferase 73 U/L (15-37); BUN Creatinine Ratio 12.8; Bilirubin Total 0.5 mg/dL (0.2-1.0); Calcium 9.8 mg/dL (8.5-10.1); Carbon Dioxide 25.2 mmol/L (21.0-32.0); Chloride 100 mmol/L (98-107); Estimated GFR (African America >60 (>=60); Estimated GFR (Non-African Ame >60 (>=60); Globulin 4.8 g/dL; Glucose 248 mg/dL (74-106); Potassium 3.8 mmol/L (3.5-5.1); Sodium 137 mmol/L (136-145); Total Protein 8.3 g/dL (6.4-8.2)
[2024-01-21] MEDS: 0.9 % SODIUM CHLORIDE 1,000 ML 999 ML IV (00:06)
[2024-01-21] MEDS: OXYCODONE HCL/ACETAMINOPHEN 5MG/325MG 1 TAB PO ×2 (01:44)
[2024-01-21 01:47] VITALS: BP 159/98; PULSE 80; O2SAT 96
== END 2024-01-21 01:52 | disposition home or self-care (01) ==
PROVIDERS: Emergency Provider Student in an Organized Health Care Education/Training Program; PCP Family Medicine
DX: A04.6 Enteritis due to Yersinia enterocolitica (principal); R10.9 Unspecified abdominal pain; Z79.899 Other long term (current) drug therapy; Z79.85 Long-term (current) use of injectable non-insulin antidiabetic drugs; Z86.14 Personal history of Methicillin resistant Staphylococcus aureus infection; Z86.718 Personal history of other venous thrombosis and embolism; F41.9 Anxiety disorder, unspecified; K21.9 Gastro-esophageal reflux disease without esophagitis; E11.9 Type 2 diabetes mellitus without complications; F17.210 Nicotine dependence, cigarettes, uncomplicated
CPT/HCPCS: 36415; 80053; 83690; 85025; 96361; 96374; 96375; 99284

== ENCOUNTER 2024-02-10 19:08 | Emergency (ER) | payer OTHER, SELFPAY ==
[2024-02-10 19:21] VITALS: BP 168/108; PULSE 98; TEMP 36.6; O2SAT 97; BMI 39.5
--- NOTE | 2024-02-10 20:20 | ED.SKABFB1 ---
HPI - Skin/Abscess/Foreign Bdy General Chief complaint: Skin/Abscess/Foreign Body Stated complaint: Abscess/pain Time Seen by Provider: 02/10/24 19:29 Source: patient Mode of arrival: walk-in Limitations: no limitations History of Present Illness HPI narrative: patient seen at another hospital 4 days ago for abscess RLQ pannus. states an incision was made to help drain the abscess. She was given a dose of doxycycline. states Doxycycline was not called in until today. she has increased pain and decided to come in to be checked. she is diabetic and takes Trulicity and glipizide. No fever or chills or nausea Related Data Home Medications ?Medication ?Instructions ?Recorded ?Confirmed albuterol 90 mcg/actuation aerosol 90 mcg inhalation QDAY PRN dyspnea 03/25/23 02/10/24 inhaler dulaglutide 3 mg/0.5 mL 3 mg subcut QWEEK 03/25/23 02/10/24 subcutaneous pen injector (Trulicity) glipizide 10 mg tablet 20 mg PO BID 03/25/23 02/10/24 hydroxyzine HCl 25 mg tablet 25 mg PO TID PRN itching 03/25/23 02/10/24 omeprazole 40 mg capsule,delayed 40 mg PO BID 03/25/23 02/10/24 release sertraline 50 mg tablet (Zoloft) 50 mg PO DAILY 03/25/23 02/10/24 tizanidine 4 mg capsule (Zanaflex) 4 mg PO TID PRN muscle spasticity 03/25/23 02/10/24 hyoscyamine sulfate 0.375 mg 0.375 mg PO .q12hr PRN cramping 01/20/24 02/10/24 tablet,extended release,12 hr ondansetron HCl 4 mg tablet 4 mg PO Q8H PRN nausea and vomiting 01/20/24 02/10/24 Previous Rx's ?Medication ?Instructions ?Recorded ciprofloxacin HCl 500 mg tablet 500 mg PO BID #14 tabs 01/15/24 (Cipro) Allergies Allergy/AdvReac Type Severity Reaction Status Date / Time amoxicillin Allergy Nausea Verified 02/10/24 19:28 egg Allergy Abdominal Verified 02/10/24 19:28 Pain ketorolac Allergy dyspnea Verified 02/10/24 19:28 latex Allergy itching Verified 02/10/24 19:28 meperidine [From Demerol] Allergy shortness Verified 02/10/24 19:28 of breath Penicillins Allergy Rash Verified 02/10/24 19:28 Review of Systems ROS Status of ROS 10 or more systems reviewed and unremarkable except as noted in history and below PFSH PFS Medical History H/O methicillin resistant Staphylococcus aureus ?Z86.14 - Personal history of Methicillin resistant Staphylococcus aureus infection (ICD-10) 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 - Acquired stenosis of unspecified nasolacrimal duct (ICD-10) H/O thrombosis ?Z86.718 - Personal history of other venous thrombosis and embolism (ICD-10) Low back pain ?M54.50 - Low back pain, unspecified (ICD-10) Heartburn ?R12 - Heartburn (ICD-10) Anxiety ?F41.9 - Anxiety disorder, unspecified (ICD-10) Acid reflux ?K21.9 - Gastro-esophageal reflux disease without esophagitis (ICD-10) Diabetes ?E11.9 - Type 2 diabetes mellitus without complications (ICD-10) Smoker ?F17.200 - Nicotine dependence, unspecified, uncomplicated (ICD-10) Surgical History Social History Smoking status: Current every day smoker Exam Constitutional Vital Signs, click to edit/add: Last Vital Signs Temp 97.8 F 02/10/24 19:21 Pulse 98 H 02/10/24 19:21 Resp 18 02/10/24 19:21 BP 168/108 H 02/10/24 19:21 Pulse Ox 97 02/10/24 19:21 O2 Del Method Room Air 02/10/24 19:21 Common normals: no apparent distress, average body habitus, oriented x3, no limitations, healthy appearing, alert and well nourished [facility] Common normals: normocephalic and head/scalp atraumatic Eye Common normals: PERRL and EOMs intact bilaterally Respiratory Common normals: normal respiratory effort, no retractions, no use of accessory muscles and clear to auscultation bilaterally Cardio Common normals: regular rate, regular rhythm, S1 normal heart sound and S2 normal heart sound GI Other: superficial open abscess RLQ pannus. Mild surrounding erythema. abscess indurated. measures about 3-4 cm and mild tenderness. . No obvious drainage at this time Extremity Common normals: normal to inspection and full ROM Neuro Common normals: oriented x3, CN's II-XII intact bilaterally, moves all extremities, no focal motor deficits and no sensory deficits noted Psych Appearance: grossly normal Course Vital Signs Vital signs: Vital Signs Temperature 97.8 F 02/10/24 19:21 Pulse Rate 98 H 02/10/24 19:21 Respiratory Rate 18 02/10/24 19:21 Blood Pressure 168/108 H 02/10/24 19:21 Pulse Oximetry 97 02/10/24 19:21 Oxygen Delivery Method Room Air 02/10/24 19:21 Temperature 97.8 F 02/10/24 19:21 Pulse Rate 98 H 02/10/24 19:21 Respiratory Rate 18 02/10/24 19:21 Blood Pressure 168/108 H 02/10/24 19:21 Pulse Oximetry 97 02/10/24 19:21 Oxygen Delivery Method Room Air 02/10/24 19:21 MDM - Skin/Abscess/Foreign Bdy MDM Narrative Medical decision making narrative: patient presents with abscess RLQ pannus. lesion was incised 4 days ago but she has only taken on dose of antibiotic that was given 4 days ago. She complains of increased pain. Lesion is open with no obvious drainage. Does have induration and erythema . no red streaks. No systemic symptoms. Labs ordered. IV established and patient given dose of IV clindamycin labs retuned with mild elevation of lactic acid and hyperglycemic non ketotic. Patient discharged in good condition clinically. given prescription of clindamycin and advised to have her wound rechecked in next 2-3 days. Lab Data Labs: Lab Results 02/10/24 Range/Units 20:33 WBC 10.0 (4.0-11.0) 10^3/uL RBC 4.81 (4.20-5.40) 10^6/uL Hgb 14.4 (12.0-16.0) g/dL Hct 43.5 (36.0-48.0) % MCV 90.4 (81.0-99.0) fL MCH 29.9 (26.7-34.0) pg MCHC 33.1 (29.9-35.2) g/dL RDW 13.2 (11.0-15.0) % Plt Count 298 (150-450) 10^3/uL MPV 11.0 (9.5-13.5) fL Neut % (Auto) 57.1 (43.0-75.0) % Lymph % (Auto) 35.7 (20.5-60.0) % [place] % (Auto) 4.9 (1.7-12.0) % Eos % (Auto) 1.4 (0.9-7.0) % Baso % (Auto) 0.6 (0.2-2.0) % Neut # (Auto) 5.7 (1.4-6.5) 10^3/uL Lymph # (Auto) 3.6 (1.2-3.8) 10^3/uL [place] # (Auto) 0.5 (0.3-0.8) 10^3/uL Eos # (Auto) 0.1 (0.0-0.7) 10^3/uL Baso # (Auto) 0.1 (0.0-0.1) 10^3/uL Abs Immat Gran (auto) 0.03 (0.00-0.03) 10^3/uL Imm/Tot Granulo (auto) 0.3 (0.0-0.5) % Sodium 136 (136-145) mmol/L Potassium 3.6 (3.5-5.1) mmol/L Chloride 99 (98-107) mmol/L Carbon Dioxide 23.0 (21.0-32.0) mmol/L Anion Gap 17.6 BUN 9.0 (7.0-18.0) mg/dL Creatinine 0.88 (0.55-1.02) mg/dL Est GFR ( Amer) >60 (>=60) Est GFR (Non-Af Amer) >60 (>=60) BUN/Creatinine Ratio 10.2 Glucose 263 H (74-106) mg/dL Lactate 2.9 H* (0.4-2.0) mmol/L Calcium 9.9 (8.5-10.1) mg/dL Discharge Plan Discharge Stand Alone Forms: Portal Instructions Chief Complaint: Skin/Abscess/Foreign Body Clinical Impression: Abdominal wall abscess Patient Disposition: Home, Self-Care Prescriptions / Home Meds: No Action ciprofloxacin HCl [Cipro] 500 mg tablet 500 mg PO BID Qty: 14 0RF omeprazole 40 mg capsule,delayed release(DR/EC) 40 mg PO BID Trulicity 3 mg/0.5 mL pen injector 3 mg subcut QWEEK hydroxyzine HCl 25 mg tablet 25 mg PO TID PRN (Reason: itching) glipizide 10 mg tablet 20 mg PO BID tizanidine [Zanaflex] 4 mg capsule 4 mg PO TID PRN (Reason: muscle spasticity) sertraline [Zoloft] 50 mg tablet 50 mg PO DAILY albuterol 90 mcg/actuation aerosol 90 mcg inhalation QDAY PRN (Reason: dyspnea) ondansetron HCl 4 mg tablet 4 mg PO Q8H PRN (Reason: nausea and vomiting) hyoscyamine sulfate 0.375 mg tablet extended release 12 hr 0.375 mg PO .q12hr PRN (Reason: cramping) Print Language: Yakut Instructions: Abscess (ED) Referrals: Yossi Golden MD [Primary Care Provider] - 1 week Discharge Date/Time: 02/10/24 21:21
[2024-02-10] MEDS: CLINDAMYCIN PHOSPHATE/D5W 900 MG/50 ML PIGGYBACK 100 MG IV (20:33)
[2024-02-10 20:42] LABS: Basophils Absolute Auto 0.1 10^3/uL (0.0-0.1); Basophils Percent Auto 0.6 % (0.2-2.0); Eosinophils Absolute Auto 0.1 10^3/uL (0.0-0.7); Eosinophils Percent Auto 1.4 % (0.9-7.0); Hematocrit 43.5 % (36.0-48.0); Hemoglobin 14.4 g/dL (12.0-16.0); Immature Granulocytes Abs Auto 0.03 10^3/uL (0.00-0.03); Immature Granulocytes Pct Auto 0.3 % (0.0-0.5); Lymphocytes Absolute Auto 3.6 10^3/uL (1.2-3.8); Lymphocytes Percent Auto 35.7 % (20.5-60.0); Mean Corpuscular HGB Conc 33.1 g/dL (29.9-35.2); Mean Corpuscular Hemoglobin 29.9 pg (26.7-34.0); Mean Corpuscular Volume 90.4 fL (81.0-99.0); Monocytes Absolute Auto 0.5 10^3/uL (0.3-0.8); Monocytes Percent Auto 4.9 % (1.7-12.0); Neutrophils Absolute Auto 5.7 10^3/uL (1.4-6.5); Neutrophils Percent Auto 57.1 % (43.0-75.0); Platelet Count 298 10^3/uL (150-450); Red Blood Count 4.81 10^6/uL (4.20-5.40); Red Cell Distribution Width 13.2 % (11.0-15.0)
[2024-02-10] MEDS: ONDANSETRON PF 4 MG/2 ML VIAL IV (20:50)
[2024-02-10 20:53] LABS: Anion Gap 17.6; BUN Creatinine Ratio 10.2; Calcium 9.9 mg/dL (8.5-10.1); Chloride 99 mmol/L (98-107); Estimated GFR (African America >60 (>=60); Estimated GFR (Non-African Ame >60 (>=60); Glucose 263 mg/dL (74-106); Potassium 3.6 mmol/L (3.5-5.1); Sodium 136 mmol/L (136-145)
[2024-02-10 21:05] LABS: Lactate/Lactic Acid 2.9 mmol/L (0.4-2.0)
== END 2024-02-10 21:21 | disposition home or self-care (01) ==
PROVIDERS: Emergency Provider Internal Medicine; PCP Family Medicine
DX: L02.211 Cutaneous abscess of abdominal wall (principal); E11.65 Type 2 diabetes mellitus with hyperglycemia; F41.9 Anxiety disorder, unspecified; K21.9 Gastro-esophageal reflux disease without esophagitis; F17.210 Nicotine dependence, cigarettes, uncomplicated; Z79.85 Long-term (current) use of injectable non-insulin antidiabetic drugs; Z79.899 Other long term (current) drug therapy; Z79.84 Long term (current) use of oral hypoglycemic drugs; Z86.14 Personal history of Methicillin resistant Staphylococcus aureus infection; Z86.718 Personal history of other venous thrombosis and embolism
CPT/HCPCS: 36415; 80048; 83605; 85025; 96365; 96375; 99284

== ENCOUNTER 2024-04-05 14:56 | Emergency (ER) | payer OTHER, SELFPAY ==
[2024-04-05 15:00] VITALS: BP 134/112; PULSE 104; TEMP 36.6; O2SAT 96; BMI 38.9
[2024-04-05 15:14] LABS: Glucometer 431 mg/dL (74-106)
--- NOTE | 2024-04-05 15:18 | ED.GENADUL1 ---
HPI HPI - General Adult General Chief complaint: Recheck/Abnormal Lab/Rx Stated complaint: ABNORMAL LABS Time Seen by Provider: 04/05/24 15:09 Source: patient Mode of arrival: walk-in History of Present Illness HPI narrative: Patient is a 28-year-old female who presents to the emergency department for the evaluation of high blood sugars. [facility], she states that the prescription has been sent to the pharmacy but [facility] is always out of the medicine. She and her significant other state that they did not know that the pharmacy could transfer the prescription or that her doctor could call in something different. She is not concerned for , she had a full hysterectomy. She states for the last several days her blood sugars have been elevated and she has been watching her diet but now she has an increase in thirst and urination. She has no abdominal pain, fevers or vomiting. She does feel nauseous. Related Data Home Medications ?Medication ?Instructions ?Recorded ?Confirmed albuterol 90 mcg/actuation aerosol 90 mcg inhalation QDAY PRN dyspnea 03/25/23 02/10/24 inhaler dulaglutide 3 mg/0.5 mL 3 mg subcut QWEEK 03/25/23 02/10/24 subcutaneous pen injector ([facility]) glipizide 10 mg tablet 20 mg PO BID 03/25/23 02/10/24 hydroxyzine HCl 25 mg tablet 25 mg PO TID PRN itching 03/25/23 02/10/24 omeprazole 40 mg capsule,delayed 40 mg PO BID 03/25/23 02/10/24 release sertraline 50 mg tablet (Zoloft) 50 mg PO DAILY 03/25/23 02/10/24 tizanidine 4 mg capsule (Zanaflex) 4 mg PO TID PRN muscle spasticity 03/25/23 02/10/24 hyoscyamine sulfate 0.375 mg 0.375 mg PO .q12hr PRN cramping 01/20/24 02/10/24 tablet,extended release,12 hr ondansetron HCl 4 mg tablet 4 mg PO Q8H PRN nausea and vomiting 01/20/24 02/10/24 Previous Rx's ?Medication ?Instructions ?Recorded ciprofloxacin HCl 500 mg tablet 500 mg PO BID #14 tabs 04/24/24 (Cipro) ondansetron 4 mg disintegrating 4 mg PO Q6H PRN nausea and 04/05/24 tablet vomiting #12 tabs Allergies Allergy/AdvReac Type Severity Reaction Status Date / Time amoxicillin Allergy Nausea Verified 02/10/24 19:28 egg Allergy Abdominal Verified 02/10/24 19:28 Pain ketorolac Allergy dyspnea Verified 02/10/24 19:28 latex Allergy itching Verified 02/10/24 19:28 meperidine [From Demerol] Allergy shortness Verified 02/10/24 19:28 of breath Penicillins Allergy Rash Verified 02/10/24 19:28 Opioid HPI Opioid Management Most Recent Opioid Data: Last Pain Scale 4 04/22/23 09:37 Review of Systems ROS Constitutional Denies: fever or chills Ears, nose, mouth, and throat Denies: throat pain or nasal congestion Respiratory Denies: shortness of breath Gastrointestinal Denies: nausea or vomiting Integumentary/Breast Denies: rash Hematologic/Lymphatic Denies: easy bruising or easy bleeding 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 - Acquired stenosis of unspecified nasolacrimal duct (ICD-10) H/O thrombosis ?Z86.718 - Personal history of other venous thrombosis and embolism (ICD-10) Low back pain ?M54.50 - Low back pain, unspecified (ICD-10) Heartburn ?R12 - Heartburn (ICD-10) Anxiety ?F41.9 - Anxiety disorder, unspecified (ICD-10) Acid reflux ?K21.9 - Gastro-esophageal reflux disease without esophagitis (ICD-10) Diabetes ?E11.9 - Type 2 diabetes mellitus without complications (ICD-10) Smoker ?F17.200 - Nicotine dependence, unspecified, uncomplicated (ICD-10) Surgical History Social History Smoking status: Current every day smoker Exam Constitutional Vital Signs, click to edit/add: Last Vital Signs Temp 97.8 F 04/05/24 15:00 Pulse 104 H 04/05/24 15:00 Resp 20 04/05/24 15:00 BP 134/112 H 04/05/24 15:00 Pulse Ox 96 04/05/24 15:00 O2 Del Method Room Air 04/05/24 15:00 Course Vital Signs Vital signs: Vital Signs Temperature 97.8 F 04/05/24 15:00 Pulse Rate 104 H 04/05/24 15:00 Respiratory Rate 20 04/05/24 15:00 Blood Pressure 134/112 H 04/05/24 15:00 Pulse Oximetry 96 04/05/24 15:00 Oxygen Delivery Method Room Air 04/05/24 15:00 Temperature 97.8 F 04/05/24 15:00 Pulse Rate 104 H 04/05/24 15:00 Respiratory Rate 20 04/05/24 15:00 Blood Pressure 134/112 H 04/05/24 15:00 Pulse Oximetry 96 04/05/24 15:00 Oxygen Delivery Method Room Air 04/05/24 15:00 Medical Decision Making MDM Narrative Medical decision making narrative: Patient was treated with IV fluids, subcutaneous insulin and Zofran. Initial blood sugar was 430, repeat blood sugar is 311. Patient with stable vital signs in the ER. No signs of DKA or acidosis. She was given multiple instructions to call her doctors office first thing tomorrow morning to either have the Trulicity prescription changed or transferred. She verbalized understanding. I attempted to contact Dr. Golden's office to leave a voicemail so that they can follow-up with the patient but there is no voicemail available in the office. Patient will need to contact the office first thing tomorrow morning for adjustment or transfer of her prescriptions. Return to the ER if symptoms change or worsen. SUPERVISED APC VISIT, PHYSICIAN ATTESTATION: Based on the medical record the care appears appropriate. ? Medical Records Medical records reviewed: Yes I reviewed the patient's medical records Lab Data Lab results reviewed: Yes I reviewed the patient's lab results Labs: Lab Results 04/05/24 04/05/24 Range/Units 15:07 15:10 WBC 10.9 (4.0-11.0) 10^3/uL RBC 4.89 (4.20-5.40) 10^6/uL Hgb 14.9 (12.0-16.0) g/dL Hct 44.6 (36.0-48.0) % MCV 91.2 (81.0-99.0) fL MCH 30.5 (26.7-34.0) pg MCHC 33.4 (29.9-35.2) g/dL RDW 12.9 (11.0-15.0) % Plt Count 314 (150-450) 10^3/uL MPV 11.4 (9.5-13.5) fL Neut % (Auto) 59.6 (43.0-75.0) % Lymph % (Auto) 34.1 (20.5-60.0) % [place] % (Auto) 4.5 (1.7-12.0) % Eos % (Auto) 0.7 L (0.9-7.0) % Baso % (Auto) 0.6 (0.2-2.0) % Neut # (Auto) 6.5 (1.4-6.5) 10^3/uL Lymph # (Auto) 3.7 (1.2-3.8) 10^3/uL [place] # (Auto) 0.5 (0.3-0.8) 10^3/uL Eos # (Auto) 0.1 (0.0-0.7) 10^3/uL Baso # (Auto) 0.1 (0.0-0.1) 10^3/uL Abs Immat Gran (auto) 0.05 H (0.00-0.03) 10^3/uL Imm/Tot Granulo (auto) 0.5 (0.0-0.5) % VBG pH 7.430 (7.330-7.430) VBG pCO2 35.9 L (40.0-52.0) mmHg Sodium 133 L (136-145) mmol/L Potassium 4.3 (3.5-5.1) mmol/L Chloride 100 (98-107) mmol/L Carbon Dioxide 22.8 (21.0-32.0) mmol/L Anion Gap 14.5 BUN 15.0 (7.0-18.0) mg/dL Creatinine 0.98 (0.55-1.02) mg/dL Est GFR ( Amer) >60 (>=60) Est GFR (Non-Af Amer) >60 (>=60) BUN/Creatinine Ratio 15.3 Glucose 405 H (74-106) mg/dL Lactate 2.5 H* (0.4-2.0) mmol/L Calcium 9.4 (8.5-10.1) mg/dL Total Bilirubin 0.5 (0.2-1.0) mg/dL AST 88 H (15-37) U/L ALT 84 H (14-59) U/L Alkaline Phosphatase 130 H (46-116) U/L Total Protein 8.4 H (6.4-8.2) g/dL Albumin 3.6 (3.4-5.0) g/dL Globulin 4.8 g/dL Albumin/Globulin Ratio 0.8 Urine Color Lt. yellow (YELLOW) Urine Clarity Clear (CLEAR) Urine pH 6.0 (5.0-9.0) Ur Specific [place] 1.010 (1.005-1.025) Urine Protein Negative (NEG/TRACE) mg/dL Urine Glucose (UA) >=1000 A (NEGATIVE) mg/dL Urine Ketones Negative (NEGATIVE) mg/dL Urine Occult Blood Negative (NEGATIVE) Urine Nitrite Negative (NEGATIVE) Urine Bilirubin Negative (NEGATIVE) Urine Urobilinogen 0.2 (0.2-1.0) EU/dL Ur Leukocyte Esterase Negative (NEGATIVE) Urine HCG, Qual Negative (NEGATIVE) Acetone, Qual Negative (NEGATIVE) POC Glucose 431 H (74-106) mg/dL Discharge Plan Discharge Stand Alone Forms: Portal Instructions Chief Complaint: Recheck/Abnormal Lab/Rx Clinical Impression: Hyperglycemia Patient Disposition: Home, Self-Care Time of Disposition Decision: 16:36 Condition: Good Prescriptions / Home Meds: New ondansetron 4 mg tablet,disintegrating 4 mg PO Q6H PRN (Reason: nausea and vomiting) Qty: 12 0RF No Action ciprofloxacin HCl [Cipro] 500 mg tablet 500 mg PO BID Qty: 14 0RF omeprazole 40 mg capsule,delayed release(DR/EC) 40 mg PO BID Trulicity 3 mg/0.5 mL pen injector 3 mg subcut QWEEK hydroxyzine HCl 25 mg tablet 25 mg PO TID PRN (Reason: itching) glipizide 10 mg tablet 20 mg PO BID tizanidine [Zanaflex] 4 mg capsule 4 mg PO TID PRN (Reason: muscle spasticity) sertraline [Zoloft] 50 mg tablet 50 mg PO DAILY albuterol 90 mcg/actuation aerosol 90 mcg inhalation QDAY PRN (Reason: dyspnea) ondansetron HCl 4 mg tablet 4 mg PO Q8H PRN (Reason: nausea and vomiting) hyoscyamine sulfate 0.375 mg tablet extended release 12 hr 0.375 mg PO .q12hr PRN (Reason: cramping) Print Language: Bahraini Instructions: Diabetic Hyperglycemia (ED) Additional Instructions: Please call Dr. Golden's office tomorrow morning and let them know you have had trouble with your prescription so they can transfer or change the prescription Referrals: Yossi Golden MD [Primary Care Provider] - 1 week
[2024-04-05] MEDS: 0.9 % SODIUM CHLORIDE 1,000 ML 999 ML IV (15:25)
[2024-04-05 15:26] LABS: Basophils Absolute Auto 0.1 10^3/uL (0.0-0.1); Basophils Percent Auto 0.6 % (0.2-2.0); Eosinophils Absolute Auto 0.1 10^3/uL (0.0-0.7); Eosinophils Percent Auto 0.7 % (0.9-7.0); Hematocrit 44.6 % (36.0-48.0); Hemoglobin 14.9 g/dL (12.0-16.0); Immature Granulocytes Abs Auto 0.05 10^3/uL (0.00-0.03); Immature Granulocytes Pct Auto 0.5 % (0.0-0.5); Lymphocytes Absolute Auto 3.7 10^3/uL (1.2-3.8); Lymphocytes Percent Auto 34.1 % (20.5-60.0); Mean Corpuscular HGB Conc 33.4 g/dL (29.9-35.2); Mean Corpuscular Hemoglobin 30.5 pg (26.7-34.0); Mean Corpuscular Volume 91.2 fL (81.0-99.0); Mean Platelet Volume 11.4 fL (9.5-13.5); Monocytes Absolute Auto 0.5 10^3/uL (0.3-0.8); Monocytes Percent Auto 4.5 % (1.7-12.0); Neutrophils Absolute Auto 6.5 10^3/uL (1.4-6.5); Neutrophils Percent Auto 59.6 % (43.0-75.0); Platelet Count 314 10^3/uL (150-450); Red Blood Count 4.89 10^6/uL (4.20-5.40); Red Cell Distribution Width 12.9 % (11.0-15.0); White Blood Count 10.9 10^3/uL (4.0-11.0)
[2024-04-05] MEDS: ONDANSETRON PF 4 MG/2 ML VIAL IV (15:30)
[2024-04-05] MEDS: INSULIN REGULAR 300 UNITS/3 ML 12 UNIT SUBQ (15:30)
[2024-04-05 15:31] LABS: Bilirubin Urine NEGATIVE (NEGATIVE); Blood Urine NEGATIVE (NEGATIVE); Clarity Urine CLEAR (CLEAR); Color Urine LT. YELLOW (YELLOW); Glucose Urine UA >=1000 mg/dL (NEGATIVE); Ketones Urine NEGATIVE (NEGATIVE); Leukocyte Esterase Urine NEGATIVE (NEGATIVE); Nitrite Urine NEGATIVE (NEGATIVE); PCO2 VBG 35.9 mmHg (40.0-52.0); Protein Urine NEGATIVE (NEG/TRACE); Urobilinogen Urine 0.2 EU/dL (0.2-1.0)
[2024-04-05 15:33] LABS: HCG Qualitative Urine* NEGATIVE (NEGATIVE); Internal Control Within Normal Limits
[2024-04-05 15:34] LABS: Urine Microscopic Indicated NO
[2024-04-05 15:49] LABS: Alanine Aminotransferase 84 U/L (14-59); Albumin Globulin Ratio 0.8; Albumin Level 3.6 g/dL (3.4-5.0); Alkaline Phosphatase 130 U/L (46-116); Anion Gap 14.5; Aspartate Amino Transferase 88 U/L (15-37); BUN Creatinine Ratio 15.3; Bilirubin Total 0.5 mg/dL (0.2-1.0); Calcium 9.4 mg/dL (8.5-10.1); Carbon Dioxide 22.8 mmol/L (21.0-32.0); Chloride 100 mmol/L (98-107); Estimated GFR (African America >60 (>=60); Estimated GFR (Non-African Ame >60 (>=60); Globulin 4.8 g/dL; Glucose 405 mg/dL (74-106); Potassium 4.3 mmol/L (3.5-5.1); Sodium 133 mmol/L (136-145); Total Protein 8.4 g/dL (6.4-8.2)
[2024-04-05 15:56] LABS: Lactate/Lactic Acid 2.5 mmol/L (0.4-2.0)
[2024-04-05 15:58] LABS: Acetone NEGATIVE (NEGATIVE)
[2024-04-05 16:33] LABS: Glucometer 311 mg/dL (74-106)
== END 2024-04-05 16:54 | disposition home or self-care (01) ==
PROVIDERS: Physician Assistant; Emergency Provider Student in an Organized Health Care Education/Training Program; PCP Family Medicine
DX: E11.65 Type 2 diabetes mellitus with hyperglycemia (principal); Z79.85 Long-term (current) use of injectable non-insulin antidiabetic drugs; F17.200 Nicotine dependence, unspecified, uncomplicated
CPT/HCPCS: 36415; 36416; 80048; 80053; 81003; 82009; 82800; 82948; 83605; 84703; 85025; 96374; 99285; J2405

== ENCOUNTER 2024-04-14 21:48 | Emergency (ER) | payer OTHER, SELFPAY ==
[2024-04-14 21:52] VITALS: BP 114/85; PULSE 107; TEMP 36.9; O2SAT 97; BMI 38.8
--- OUTSIDE RECORDS SUMMARY | 2024-04-14 21:58 | XMS_ITS | CCD ---
Author Organization [facility] Care Team Providers Care Stage Director Name Role Phone Yossi Wells Primary Care Provider MARYAM CHÁVEZ Admitting Unav ailable MARYAM CHÁVEZ Attending Unav ailable JAY JAY, HANNA QUIGLEY Primary Care Unavailab nelson GOYAL, HANNA QUIGLEY Consulting Unavailab le Naderemikaela, Yossi Bustillo Primary Care Provider Yossi Wells Primary Care Provider Russell GREWAL, Yossi Bustillo Primary Care Provider Russell GREWAL, Yossi Bustillo Primary Care Provider Russell GREAWL, Yossi Bustillo Primary Care Provider Russell GREWAL, Yossi Bustillo Primary Care Provider YOSSI WELLS Primary Care Physician [phone] RUSSELL, DR YOSSI Maldonado Primary Care Unavailable NILL ., DR GATES Attending Unavailable NILL ., DR GATES Admitting Unavailable NILL ., DR GATES Consulting Unavailable ASHLEY IISOCO Consulting Unavailable SHELBY PERAZA Consulting Unavailable NADEREMikaela, DR YOSSI Maldonado Primary Care Unavailable NADEREMikaela, DR YOSSI Maldonado Consulting Unavailable RUSSELL, DR YOSSI Maldonado Attending Unavailable NADEREMikaela, DR YOSSI Maldonado Admitting Unavailable NADEREMikaela, DR YOSSI Maldonado Primary Care Unavailable RAMÍREZ, DR DEDRA Al Admitting Unavailable RAMÍREZ, DR DEDRA Al Consulting Unavailable RAMÍREZ, DR DEDRA Al Attending Unavailable BRIAN LORA Consulting Unavailable NILL, Ortiz Al Attending Unavailable NILL, Ortiz Al Attending Unavailable Ortiz GARDNER Attending Unavailable Russell GREWAL, Yossi Meyerony Primary Care Provider RAY JOHNSON Admitting Unavailable RAY JOHNSON Attending Unavailable MARIKA HAIRSTON Consulting Unavailable [facility] [place]SI [place] Primary Care Unavailabl patricia Wells MD, Yossi Keny Primary Care Unavail able Devang Alejandre PA-C Attending Unavail able Russell GREWAL, 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 Primary Care Unavail able Tom GREWAL, Sammy Attending Unavailab nelson Wells MD, [facility] Primary Care Unavail able Tom GREWAL, Sammy Attending Unavailab nelson Wells MD, [facility] Primary Care Unavail able Hill ESCOBAR, Devang [place] Attending Unavail able Kaden Verma DO Referring Unavailab nelson [facility] Primary Care Unavailabl e CHINYERE, NAZIA Referring [facility]available [facility] Primary Care Unavailabl e DEDRA PINEDA Admitting Unavailable DEDRA PINEDA Attending Unavailable RUSSELL [facility] Primary Care Unavailabl e CHINYERENAZIA Attending Unavailable RUSSELL [facility] Primary Care Unavailabl e NADERER, [facility] Primary Care Unavailabl e NADERER, [facility] Primary Care Unavailabl e KLAUS ROLLE Admitting Unavailable KLAUS ROLLE Attending Unavailable RUSSELL [facility] Primary Care Unavailabl e NADERER, [facility] Primary Care Unavailabl e KAYLIE MORALES Attending Unavailable GLORIA VICENTE Attending Unavailable NADEREMikaela, [facility] Primary Care Unavailabl e NADERER, [facility] Primary Care Unavailabl e GLORIA VICENTE Attending Unavailable NADEREYOSSI Al [place] Primary Care Unavailabl e NADERER, [facility] Primary Care Unavailabl e NADERER, [facility] Primary Care Unavailabl e NAZIA WHITLOCK Attending Unavailable NADERER, [facility] Primary Care Unavailabl e RAY, SAMY Attending Unavailable SEAMONS, GLORIA Attending Unavailable NADERER, YOSSI MEYERONY Primary Care Unavailabl e NADERER, YOSSI KENY Primary Care Unavailabl e RAY, SAMY Attending Unavailable NADERER, YOSSI KENY Primary Care Unavailabl e RAY, SAMY Attending Unavailable NADERER, YOSSI MEYERONY Primary Care Unavailabl e RANELLONE, CHARLY Attending Unavailable NADERER, YOSSI MEYERONY Primary Care Unavailabl e SEAMONS, GLORIA Attending Unavailable NADERER, YOSSI KENY Primary Care Unavailabl e NADERER, [place]OSSI [place] Primary Care Unavailabl e CHINYERE, NAZIA Referring Unavailable NADERER, YOSSI [place] Primary Care Unavailabl e CHINYERE, NAZIA Referring Unavailable Allergies Allergy Classification Reported Allergen(s) Allergy Type Date of Onset Reaction(s) Facility Latex (1 source) Latex Substance Allergy 02-27-20 16 Itching [facility] NSAIDs (1 source) Ketorolac Drug Allergy 01-25-20 13 Shortness Of Breath, Itching [facility] Opioid Agonists (2 sources) Meperidine Drug Allergy 02-27-20 16 Shortness Of Breath, Itching [facility] Penicillin V (1 source) Penicillin V Drug Allergy 02-27-20 16 Rash [facility] Penicillins (antibiotic) (1 source) Amoxicillin Drug Allergy 02-27-20 16 Nausea And Vomiting [facility] Phenazopyridine (1 source) Phenazopyridine Drug Allergy 02-27-20 16 Anxiety [facility] (20 sources) Amoxicillin; Translations: [amoxicillin] Drug Allergy 02-26-20 16 Nausea And Vomiting, Eruption of skin (disorder), Nausea and vomiting (disorder) [place] (20 sources) Ketorolac Drug Allergy 01-25-20 13 Shortness Of Breath, Itching, Other (See Comments) [place] (20 sources) Latex; Translations: [Unknown] Propensity to adverse reactions to drug 02-27-20 16 Itching, Itching (finding) [place] (20 sources) Meperidine; Translations: [meperidine] Drug Allergy 02-26-20 16 Shortness Of Breath, Itching, Itching (finding), Dyspnea (finding) [place] (20 sources) Penicillin V Drug Allergy 02-27-20 16 Rash [place] (20 sources) Phenazopyridine Drug Allergy 02-27-20 16 Anxiety [place] (20 sources) Eggs Or Egg-Derived Products Propensity to adverse reactions to drug 02-27-20 16 Other (See Comments) [place] (3 sources) Penicillin; Translations: [penicillin] Drug Allergy [facility] (3 sources) Phenazopyridine; Translations: [Pyridium] Drug Allergy [facility] (20 sources) traMADol; Translations: [traMADol] Drug Allergy 02-17-20 20 Unknown [facility] (12 sources) Penicillin G Drug Allergy 10-01-19 23 Other (See Comments) [facility] (2 sources) Egg; Translations: [Eggs] Food allergy Abdominal pain (finding) [facility] [place] (2 sources) Ketorolac; Translations: [ketorolac] Drug Allergy 01-24-20 13 Itching (finding), Dyspnea (finding) [facility] [place] (1 source) Amoxicillin Drug Allergy [facility] (2 sources) Ketorolac; Translations: [Toradol] Drug Allergy [facility] (1 source) Latex Drug allergy (disorder) [facility] (1 source) Meperidine Drug Allergy [facility] (1 source) Egg/Poultry Drug allergy (disorder) [facility] (5 sources) kiwi fruit allergenic extract Drug Allergy 06-03-20 23 Itching [facility] (3 sources) Egg-Derived Products Propensity to adverse reactions to drug 02-27-20 16 Other (See Comments) [facility] (1 source) egg-containing compound; Translations: [egg-containing compound] Propensity to adverse reactions to food (disorder) [facility] Medications Current Medications Medication Drug Class(es) Dates Sig (Normalized) Sig (Original) acetaminophen 300 mg / codeine phosphate 30 mg oral tablet (1 source) Opioid Agonist Start: 11-12-2022 End: 11-17-2022 acetaminophen-code ine (TYLENOL/CODEINE #3) 300-30 MG per tablet Indications: Post-op pain Take 1 tablet by mouth every 4 hours as needed for Pain for up to 5 days. Intended supply: 5 days. Take lowest dose possible to manage pain Max Daily Amount: 6 tablets 20 tablet 0 11/12/2022 11/17/2022 Active Acetaminophen / HYDROcodone (15 sources) Opioid Agonist Start: 11-24-2023 hydrocodone-acetam inophen (NORCO) tablet 5-325 mg (STARTER PACK) Start: 11-23-2023 End: 11-23-2023 HYDROcodone-acetaminophen (N ORCO) 5-325 MG per tablet 1 tablet Start: 11-01-2022 This order is for a take home starter pack of medication. Please document Not Given with a reason of other on the MAR along with a comment of sent home with patient. Start: 10-05-2022 This order is for a take home starter pack of medication. Please document Not Given with a reason of other on the MAR along with a comment of sent home with patient. Start: 10-05-2022 End: 10-08-2022 HYDROcodone-acetaminophen (N ORCO) 5-325 MG per tablet Indications: Endometriosis Take 1 tablet by mouth every 8 hours as needed for Pain for up to 3 days. Intended supply: 5 days. Take lowest dose possible to manage pain Max Daily Amount: 3 tablets 15 tablet 0 10/05/2022 10/08/2022 Active Start: 09-28-2022 End: 10-01-2022 HYDROcodone-acetaminophen (N ORCO) 5-325 MG per tablet Indications: Lower abdominal pain , Endometriosis Take 1 tablet by mouth every 6 hours as needed for Pain for up to 3 days. Intended supply: 3 days. Take lowest dose possible to manage pain Max Daily Amount: 4 tablets 10 tablet 0 09/28/2022 10/01/2022 Active Start: 09-28-2022 hydrocodone-ac etaminophen (NORCO) tablet 5-325 mg (STARTER PACK) Start: 03-11-2022 End: 03-11-2022 HYDROcodone-acetaminophen (N ORCO) 5-325 MG per tablet 1 tablet Start: 03-20-2021 End: 03-23-2021 HYDROcodone-acetaminophen (N ORCO) 5-325 MG per tablet Indications: Post-op pain Take 1 tablet by mouth every 4 hours as needed for Pain for up to 3 days. Intended supply: 3 days. Take lowest dose possible to manage pain 18 tablet 0 03/20/2021 03/23/2021 Active Start: 11-28-2020 End: 12-01-2020 take 1 tablet by mouth every six hours as needed for pain, then take 1 tablet by mouth as needed for pain HYDROcodone-acetaminophen (NORCO) 5-325 MG per tablet Indications: Abscess of right thigh Take 1 tablet by mouth every 6 hours as needed for Pain for up to 3 days. Intended supply: 3 days. Take lowest dose possible to manage pain 12 tablet 0 11/28/2020 12/01/2020 Active Start: 11-28-2020 End: 11-28-2020 HYDROcodone-acetaminophen (N ORCO) 5-325 MG per tablet 1 tablet Start: 11-28-2020 hydrocodone-ac etaminophen (NORCO) tablet 5-325 mg (STARTER PACK) Start: 09-17-2020 hydrocodone-ac etaminophen (NORCO) tablet 5-325 mg (STARTER PACK) Start: 06-14-2020 End: 06-14-2020 HYDROcodone-acetaminophen (N ORCO) 5-325 MG per tablet 1 tablet albuterol 0.83 mg/ml inhalation solution (20 sources) beta2-Adrenergic Agonist Start: 06-02-2021 albut armen (PROVENTIL) nebulizer solution 2.5 mg Start: 06-02-2021 take 2 puff(s) by in halation every six hours as needed for wheezing albuterol sulfate HFA (PROVENTIL HFA) 108 (90 Base) MCG/ACT inhaler Inhale 2 puffs into the lungs every 6 hours as needed for Wheezing 18 g 3 06/02/2021 Active apixaban 5 mg oral tablet (12 sources) Factor Xa Inhibitor Start: 07-15-2020 take 1 tablet by mouth twice daily apixaban (ELIQUIS) 5 MG TABS tablet Take 1 tablet by mouth 2 times daily 60 tablet 5 07/15/2020 Active Start: 07-15-2020 take 1 tablet by erlinda th twice daily apixaban (ELIQUIS) 5 MG TABS tablet Take 1 tablet by mouth 2 times daily 60 tablet 5 07/15/2020 Active Start: 06-15-2020 End: 07-15-2020 take 2 tablets by mouth twice daily, then take 1 tablet by mouth twice daily apixaban (ELIQUIS DVT/PE STARTER PACK) 5 MG TABS tablet Take 2 tablets by mouth 2 times daily for 7 days, THEN 1 tablet 2 times daily for 23 days. 74 tablet 0 06/15/2020 07/15/2020 Active Start: 06-14-2020 End: 06-20-2020 take 10 mg by mouth twice daily 10 mg, Oral, 2 TIMES D AILY, First dose on Sat06/14/20 at 0000, For 7 days ANTICOAGULANT azithromycin 250 mg oral tablet (3 sources) Macrolide Antimicrobial Start: 10-21-2023 take 1 tablet by mouth once daily azithromycin (ZITHROMAX) 250 MG tablet Take 1 tablet by mouth daily 0 10/21/2023 Active Start: 05-23-2020 End: 05-24-2020 azithromycin (ZITHROMAX) tab let 500 mg Start: 01-10-2020 End: 01-10-2020 azithromycin (ZITHROMAX) tab let 1,000 mg black cohosh extract 160 mg oral capsule (5 sources) Black Cohosh 160 MG CAPS Take 120 mg by mouth 0 Active calcium chloride 0.0014 meq/ ml / potassium chloride 0.004 meq/ml / sodium chloride 0.103 meq/ml / sodium lactate 0.028 meq/ml injectable solution (4 sources) Start: 11-12-2022 lactated ringe rs IV soln infusion Start: 03-20-2021 lactated ringe rs infusion Start: 05-22-2020 lactated ringe rs infusion 1 ml carboprost 0.25 mg/ml injection (1 source) Prostaglandin Analog Start: 05-22-2020 carbopros t (HEMABATE) injection 250 mcg clindamycin 300 mg oral capsule (2 sources) Lincosamide Antibacterial Start: 11-28-2020 End: 12-08-2020 take 1 capsule by mouth four times daily clindamycin (CLEOCIN) 300 MG capsule Take 1 capsule by mouth 4 times daily for 10 days 40 capsule 0 11/28/2020 12/08/2020 Active Start: 11-28-2020 End: 11-28-2020 clindamycin (CLEOCIN) capsul e 300 mg cyclobenzaprine hydrochloride 10 mg oral tablet (5 sources) Muscle Relaxant Start: 09-26-2020 take 10 mg by mouth twice daily 10 mg, Oral, 2 TIMES DAILY, First dose on Sat09/26/20 at 0900 Start: 09-25-2020 End: 09-25-2020 cyclobenzaprine (FLEXERIL) t ablet 10 mg Start: 09-17-2020 End: 09-27-2020 take 1 tablet by mouth three times daily as needed for muscle spasms cyclobenzaprine (FLEXERIL) 10 MG tablet Take 1 tablet by mouth 3 times daily as needed for Muscle spasms 21 tablet 0 09/17/2020 09/27/2020 Active 1 ml dexamethasone phosphate 4 mg/ml injection (2 sources) Corticosteroid Start: 09-25-2020 dexamethasone (DECADRON) injection 4 mg Start: 09-17-2020 End: 09-17-2020 dexamethasone (DECADRON) inj ection 4 mg dextromethorphan hydrobromide 3 mg/ml / promethazine hydrochloride 1.25 mg/ml oral solution (1 source) Phenothiazine, Uncompetitive V-lkhrcb-W-aspartate Receptor Antagonist, Sigma-1 Agonist Start: 06-02-2021 End: 06-09-2021 promethazine-dextromethorpha n (PROMETHAZINE-DM) 6.25-15 MG/5ML syrup Take 5 mLs by mouth 4 times daily as needed for Cough 150 mL 0 06/02/2021 06/09/2021 Active dicyclomine hydrochloride 20 mg oral tablet (12 sources) Anticholinergic Start: 11-24-2023 take 1 tablet by mouth three times daily as needed for pain dicyclomine (BENTYL) 20 MG tablet Take 1 tablet by mouth 3 times daily as needed (abdominal pain) 20 tablet 0 11/24/2023 Active Start: 11-23-2023 dicyclomine (B ENTYL) injection 20 mg Start: 06-03-2023 take 1 capsule by mo uth four times daily dicyclomine (BENTYL) 10 MG capsule Take 1 capsule by mouth 4 times daily 30 capsule 0 06/03/2023 Active Start: 02-18-2023 End: 02-18-2023 dicyclomine (BENTYL) injecti on 20 mg Start: 03-11-2022 End: 03-11-2022 dicyclomine (BENTYL) injecti on 20 mg Start: 08-27-2020 take 1 capsule by mo uth three times daily as needed for pain dicyclomine (BENTYL) 10 MG capsule Take 1 capsule by mouth 3 times daily as needed (abdominal pain) 30 capsule 3 08/27/2020 Active 1 ml diphenhydrAMINE hydrochloride 50 mg/ml cartridge (1 source) Histamine-1 Receptor Antagonist Start: 05-22-2020 diphenhydrAMINE (BENADRYL) injection 25 mg docusate sodium 50 mg / sennosides, halfway 8.6 mg oral tablet (1 source) Start: 05-22-2020 sennosides-docusate sodium (SENOKOT-S) 8.6-50 MG tablet 1 tablet 0.5 ml dulaglutide 3 mg/ml auto-injector (16 sources) GLP-1 Receptor Agonist Start: 11-30-2022 inject 1.5 mg by subcutaneous injection every week Trulicity Pen 1.5 mg/0.5 mL subcutaneous solution 1.5 mg, SubCutaneous, qWeek, Refills(s) 0 Start Date: 11/30/22 Status: Ordered Start: 08-27-2022 Dulaglutide (T RULICITY) 0.75 MG/0.5ML SOPN Inject 0.75 mg into the skin once a week Saturday 4 Adjustable Dose Pre-filled Pen Syringe 0 08/27/2022 Active Dulaglutide (TAD LICITY) 0.75 MG/0.5ML SOPN Inject 0.75 mg into the skin once a week Saturday 0 Active gabapentin 100 mg oral capsule (2 sources) Anti-epileptic Agent take 1 capsule by mouth three times daily gabapentin (NEURONTIN) 100 MG capsule Take 1 capsule by mouth 3 times daily. 0 Active glipiZIDE 10 mg oral tablet (17 sources) Sulfonylurea Start: 3 take 1 tablet by mouth twice daily glipiZIDE 10 mg Tab 10 mg = 1 tab(s), Oral, BID, Refills(s) 0 Start Date: 11/30/22 Status: Ordered take 2 tablets by mo ut twice daily before mealtime glipiZIDE (GLUCOTROL) 10 MG tablet Take 2 tablets by mouth 2 times daily (before meals) 0 Active take 1 tablet by mouth once kimber y glipiZIDE (GLUCOTROL) 10 MG tablet Take 1 tablet by mouth daily 0 Active hydrOXYzine hydrochloride 25 mg oral tablet (20 sources) Antihistamine Start: 01-12-2022 take 1 tablet by mouth every six hours hydrOXYzine HCl (ATARAX) 25 MG tablet take 1 tablet by mouth every 6 hours if needed 0 01/12/2022 Active Start: 05-23-2020 hydrOXYzine (V ISTARIL) capsule 50 mg End: 12-14-2019 take 1 tablet by mouth every eight hours as needed hydrOXYzine (ATARAX) 25 MG tablet Take 25 mg by mouth every 8 hours as needed for Itching 0 12/14/2019 Discontinued (LIST CLEANUP) hyoscyamine sulfate 0.125 mg sublingual tablet (4 sources) Start: 02-05-2024 hyoscyamine (L EVSIN/SL) sublingual tablet 125 mcg Start: 01-27-2024 Hyoscyamine Montanez lfate SL (LEVSIN/SL) 0.[address] 1 tablet under the tongue every 4-6 hours as needed (cramping) 12 each 0 01/27/2024 Active Start: 12-25-2023 take 1 tablet by erlinda th every twelve hours as needed hyoscyamine (LEVBID) 375 MCG extended release tablet Take 1 tablet by mouth every 12 hours as needed for Cramping 60 tablet 3 12/25/2023 Active ibuprofen 400 mg oral tablet (9 sources) Nonsteroidal Anti-inflammatory Drug Start: 01-04-2022 ibuprofen (ADVIL;MOTRIN) tablet 400 mg Start: 05-23-2020 End: 09-17-2020 take 1 tablet by mouth every eight hours as needed for pain ibuprofen (ADVIL;MOTRIN) 800 MG tablet Take 1 tablet by mouth every 8 hours as needed for Pain 60 tablet 3 05/24/2020 09/17/2020 Discontinued lansinoh lanolin ointment (1 source) Start: 05-22-2020 lansinoh lanolin ointment 24 hr metFORMIN hydrochloride 500 mg extended release oral tablet (6 sources) Biguanide take 1 tablet by mouth once daily at breakfast metFORMIN (GLUCOPHAGE-XR) 500 MG extended release tablet Take 500 mg by mouth daily (with breakfast) 0 Active 1 ml methylergonovine maleate 0.2 mg/ml injection (1 source) Ergot Derivative Start: 05-22-2020 methylergonovine (METHERGINE) injection 200 mcg methylPREDNISolone 4 mg oral tablet (1 source) Corticosteroid Start: 09-26-2020 End: 10-02-2020 methylPREDNISolone (MEDROL, ANNETTE,) 4 MG tablet Take by mouth. 1 kit 0 09/26/2020 10/02/2020 Active 2 ml metoclopramide 5 mg/ml prefilled syringe (8 sources) Dopamine-2 Receptor Antagonist Start: 02-05-2024 metoclopramide (REGLAN) injection 10 mg Start: 01-04-2024 metoclopramide (REGLAN) injection 10 mg Start: 01-04-2024 End: 02-05-2024 take 1 tablet by mouth four times daily metoclopramide (REGLAN) 10 MG tablet Take 1 tablet by mouth 4 times daily 30 tablet 0 02/05/2024 Active Start: 03-20-2021 End: 03-20-2021 10 mg, Intravenous, ONCE PRN , Nausea, Starting on Sat03/20/21 at 1333, For 1 dose Secondary antiemetic therapy. PACU only Start: 05-22-2020 End: 05-22-2020 metoclopramide (REGLAN) inje ction 10 mg miSOPROStol 0.1 mg oral tablet (1 source) Prostaglandin E1 Analog Start: 05-22-2020 miSOPROStol (CYTOTEC) tablet 800 mcg Multiple Vitamins-Minerals (THERAPEUTIC MULTIVITAMIN-MINERA LS) tablet (5 sources) take 1 tablet by mouth once daily Multiple Vitamins-Mineral s (THERAPEUTIC MULTIVITAMIN-MIN ERALS) tablet Take 1 tablet by mouth daily 0 Active 1 ml naloxone hydrochloride 0.4 mg/ml injection (1 source) Opioid Antagonist Start: 05-22-2020 naloxone (NARCAN) injection 0.4 mg 24 hr nicotine 0.875 mg/hr transdermal system (8 sources) Cholinergic Nicotinic Agonist Start: 06-26-2020 apply 1 dose transdermal route once daily RA NICOTINE 21 MG/24HR APPLY 1 PATCH ONTO SKIN ONCE A DAY DIRECTED 0 06/26/2020 Active Start: 05-23-2020 nicotine (JOÃO DERM CQ) 21 MG/24HR 1 patch NIFEdipine 10 mg oral capsule (11 sources) Dihydropyridine Calcium Channel [place] Start: 04-29-2020 NIFEdipine (PROCARDIA) capsule 20 mg Start: 04-02-2020 NIFEdipine (CT OCARDIA) capsule 40 mg Start: 03-29-2020 NIFEdipine (CT OCARDIA) capsule 40 mg Start: 03-29-2020 End: 05-24-2020 take 1 capsule by mouth three times daily NIFEdipine (PROCARDIA) 10 MG capsule Take 1 capsule by mouth 3 times daily 90 capsule 1 03/29/2020 05/24/2020 Discontinued (Stop Taking at Discharge) omeprazole 40 mg delayed release oral capsule (16 sources) Proton Pump Inhibitor Start: 09-19-2022 take 1 capsule by mouth twice daily omeprazole (PRILOSEC) 40 MG delayed release capsule Take 1 capsule by mouth 2 times daily 0 09/19/2022 Active Start: 09-19-2022 take 1 capsule by mo [facility] once daily omeprazole (PRILOSEC) 40 MG delayed release capsule Take 1 capsule by mouth daily 0 09/19/2022 Active End: 10-29-2022 take 1 tablet by mouth at bedtime OMEPRAZOLE PO Take 1 tablet by mouth in the morning and at bedtime 0 10/29/2022 Discontinued (Therapy completed) take 1 tablet by erlinda th at bedtime OMEPRAZOLE PO Take 1 tablet by mouth in the morning and at bedtime 0 Active OMEPRAZOLE PO Ta ke by mouth 0 Active ondansetron 4 mg disintegrating oral tablet (20 sources) Serotonin-3 Receptor Antagonist Start: 02-05-2024 End: 02-05-2024 ondansetron (ZOFRAN-ODT) disintegrating tablet 4 mg Start: 01-27-2024 take 1 tablet by erlinda th three times daily as needed for nausea ondansetron (ZOFRAN-ODT) 4 MG disintegrating tablet Take 1 tablet by mouth 3 times daily as needed for Nausea or Vomiting 21 tablet 0 01/27/2024 Active Start: 01-04-2024 End: 01-04-2024 ondansetron (ZOFRAN) injecti on 4 mg Start: 01-04-2024 take 1 tablet by erlinda th every eight hours as needed for nausea ondansetron (ZOFRAN) 4 MG tablet Take 1 tablet by mouth every 8 hours as needed for Nausea 20 tablet 0 01/04/2024 Active Start: 12-25-2023 take 1 tablet by erlinda th three times daily as needed for nausea ondansetron (ZOFRAN-ODT) 4 MG disintegrating tablet Take 1 tablet by mouth 3 times daily as needed for Nausea or Vomiting 21 tablet 0 12/25/2023 Active Start: 11-24-2023 take 1 tablet by erlinda th three times daily as needed for nausea ondansetron (ZOFRAN-ODT) 4 MG disintegrating tablet Take 1 tablet by mouth 3 times daily as needed for Nausea or Vomiting 21 tablet 0 11/24/2023 Active Start: 02-18-2023 End: 02-18-2023 ondansetron (ZOFRAN) injecti on 4 mg Start: 11-30-2022 take 1 tablet by erlinda th every six hours as needed for nausea ondansetron 4 mg Dis Tab 4 mg = 1 tab(s), Oral, q6hr, PRN Nausea, Refills(s) 0 Start Date: 11/30/22 Status: Ordered Start: 11-12-2022 End: 11-12-2022 4 mg, IntraVENous, ONCE PRN, 1 dose, Starting on Sat11/12/22 at 1204, Until Sat11/12/22 at 1224, Nausea Initial antiemetic therapy. PACU only Start: 11-01-2022 End: 11-01-2022 ondansetron (ZOFRAN) injecti on 4 mg Start: 11-01-2022 take 1 tablet by erlinda th three times daily as needed for nausea ondansetron (ZOFRAN) 4 MG tablet Take 1 tablet by mouth 3 times daily as needed for Nausea or Vomiting 15 tablet 0 11/01/2022 Active Start: 09-27-2022 End: 09-27-2022 ondansetron (ZOFRAN) injecti on 4 mg Start: 03-11-2022 take 1 tablet by erlinda th every eight hours as needed for nausea ondansetron (ZOFRAN ODT) 4 MG disintegrating tablet Take 1 tablet by mouth every 8 hours as needed for Nausea or Vomiting 12 tablet 0 03/11/2022 Active Start: 03-11-2022 End: 03-11-2022 ondansetron (ZOFRAN) injecti on 4 mg Start: 03-20-2021 End: 03-20-2021 4 mg, Intravenous, ONCE PRN, Nausea, Starting on 03/20/21 at 1333, For 1 dose Initial antiemetic therapy. PACU only Start: 09-25-2020 take 4 mg by mouth e very eight hours as needed for nausea 4 mg, Oral, EVERY 8 HOURS PRN, Nausea, Vomiting, Starting 09/25/20 at 0158 Start: 09-24-2020 End: 09-24-2020 ondansetron (ZOFRAN) injecti on 4 mg Start: 05-22-2020 ondansetron (Z OFRAN) injection 4 mg Start: 09-24-2019 End: 09-24-2019 ondansetron (ZOFRAN) injecti on 4 mg Start: 07-29-2019 take 1 tablet by erlinda th every eight hours as needed for nausea ondansetron (ZOFRAN ODT) 4 MG disintegrating tablet Take 1 tablet by mouth every 8 hours as needed for Nausea 20 tablet 0 07/29/2019 Active Start: 07-28-2019 End: 07-28-2019 ondansetron (ZOFRAN) injecti on 4 mg Start: 01-04-2019 take 1 tablet by erlinda th three times daily as needed for nausea ondansetron (ZOFRAN-ODT) 4 MG disintegrating tablet Take 1 tablet by mouth 3 times daily as needed for Nausea or Vomiting 21 tablet 0 01/04/2019 Active oseltamivir 75 mg oral capsule (1 source) Neuraminidase Inhibitor Start: 10-14-2023 take 1 capsule by mouth once daily oseltamivir (TAMIFLU) 75 MG capsule Take 1 capsule by mouth daily 0 10/14/2023 Active oxyCODONE hydrochloride 5 mg oral tablet (3 sources) Opioid Agonist Start: 09-26-2020 End: 09-29-2020 take 1 tablet by mouth every six hours as needed for pain, then take 1 tablet by mouth as needed for pain oxyCODONE (ROXICODONE) 5 MG immediate release tablet Indications: Lumbar disc herniation with radiculopathy Take 1 tablet by mouth every 6 hours as needed for Pain for up to 3 days. Intended supply: 3 days. Take lowest dose possible to manage pain 12 tablet 0 09/26/2020 09/29/2020 Active Start: 09-25-2020 oxyCODONE (DOMINIC ICODONE) immediate release tablet 5 mg Start: 09-25-2020 End: 09-25-2020 oxyCODONE (ROXICODONE) immed iate release tablet 10 mg oxytocin (PITOCIN) 30 Units in sodium chloride 0.9 % 500 mL infusion (2 sources) Start: 05-22-2020 oxytocin (ELIO KENA) 30 Units in sodium chloride 0.9 % 500 mL infusion Start: 05-22-2020 oxytocin (ELIO KENA) 30 Units in sodium chloride 0.9 % 500 mL infusion pantoprazole 40 mg delayed release oral tablet (1 source) Proton Pump Inhibitor Start: 06-14-2020 pantoprazole (PROTONIX) tablet 40 mg polyethylene glycol 3350 18351 mg powder for oral solution (1 source) Osmotic Laxative Start: 06-15-2020 polyethylene glycol (GLYCOLAX) packet 17 g MV-Min-Fe Fum-FA-DHA ( 1 PO) (14 sources) take 1 tablet by mouth once daily, then take 1 tablet by mouth MV-Min-Fe Fum-FA-DHA ( 1 PO) Take 1 tablet by mouth daily 0 Active MV-Min- Fe Fum-FA-DHA ( 1 PO) Take by mouth 0 Active MV-Min- Fe Fum-FA-DHA ( 1 PO) Take by mouth 0 Suspended vitamin 27-1 MG tablet 1 tablet (1 source) Start: 05-22-2020 vitam in 27-1 MG tablet 1 tablet regular insulin, human 100 unt/ml injectable solution (2 sources) Insulin insulin regular (HUMULIN R;NOVOLIN R) 100 UNIT/ML injection Inject 6 Units into the skin 3 times daily (with meals) 6 units at breakfast, 12 units at lunchtime and 10 units a dinner verbally per patient 0 Active sennosides, halfway 8.6 mg oral tablet (1 source) Start: 09-25-2020 take 1 tablet by mouth once daily 8.6 mg (1 tablet), Oral, NIGHTLY, First dose on 09/25/20 at 2100 sertraline 25 mg oral tablet (10 sources) Serotonin Reuptake Inhibitor Start: 11-30-2022 take 1 tablet by mouth once daily sertraline 25 mg Tab 25 mg = 1 tab(s), Oral, Daily, Refills(s) 0 Start Date: 11/30/22 Status: Ordered Start: 11-19-2022 sertraline (ZO LOFT) 25 MG tablet 2 tablets 0 11/19/2022 Active Start: 11-19-2022 take 1 tablet by erlinda th once daily sertraline (ZOLOFT) 25 MG tablet take 1 tablet by mouth once daily 0 11/19/2022 Active simethicone 80 mg chewable tablet (1 source) Start: 05-22-2020 simethicone (MYLICON) chewable tablet 80 mg tiZANidine 4 mg oral tablet (18 sources) Central alpha-2 Adrenergic Agonist Start: 10-04-2021 take 1 tablet by mouth three times daily tiZANidine (ZANAFLEX) 4 MG tablet take 1 tablet by mouth three times a day if needed 0 10/04/2021 Active Completed/Discontinued Medications Medication Drug Class(es) Dates Sig (Normalized) Sig (Original) acetaminophen 325 mg oral tablet (20 sources) Start: 11-12-2022 End: 11-12-2022 acetaminophen (TYLENOL) tablet 650 mg Start: 03-20-2021 End: 03-20-2021 acetaminophen (TYLENOL) tabl et 650 mg Start: 09-25-2020 take 1 dose by mouth three times daily 1,000 mg, Oral, EVERY 8 HOURS SCHEDULED (3 times per day), First dose on 09/25/20 at 0600 Start: 09-17-2020 End: 09-17-2020 acetaminophen (TYLENOL) tabl et 1,000 mg Start: 06-13-2020 acetaminophen (TYLENOL) tablet 650 mg Start: 05-22-2020 acetaminophen (TYLENOL) tablet 650 mg Start: 04-02-2020 acetaminophen (TYLENOL) tablet 1,000 mg Start: 02-01-2020 acetaminophen (TYLENOL) tablet 650 mg Start: 01-10-2020 acetaminophen (TYLENOL) tablet 1,000 mg Start: 01-10-2020 End: 05-24-2020 take 2 tablets by mouth every six hours as needed for pain acetaminophen (TYLENOL) 325 MG tablet Take 2 tablets by mouth every 6 hours as needed for Pain 30 tablet 0 01/10/2020 05/24/2020 Discontinued (Stop Taking at Discharge) Start: 12-05-2018 End: 05-24-2020 take 2 tablets by mouth every six hours as needed for pain acetaminophen (APAP EXTRA STRENGTH) 500 MG tablet Take 2 tablets by mouth every 6 hours as needed for Pain or Fever Patient has allergy to NSAIDs 120 tablet 0 12/05/2018 05/24/2020 Discontinued (Stop Taking at Discharge) acetaminophen 300 mg / butalbital 50 mg / caffeine 40 mg oral capsule (2 sources) Barbiturate, Central Nervous System Stimulant, Methylxanthine Start: 08-13-2020 End: 08-27-2020 take 1 capsule by mouth every four hours as needed for headache coujogmwte-BXRX-opchrtaf (FIORICET) 50-300-40 MG CAPS per capsule Take 1 capsule by mouth every 4 hours as needed for Headaches 15 capsule 0 08/13/2020 08/27/2020 Discontinued (Therapy completed) acetaminophen 325 mg / oxyCODONE hydrochloride 5 mg oral tablet (3 sources) Opioid Agonist Start: 10-05-2022 End: 10-05-2022 oxyCODONE-acetaminophen (PERCOCET) 5-325 MG per tablet 1 tablet Start: 05-24-2020 End: 05-27-2020 take 1 tablet by mouth every eight hours as needed for pain oxyCODONE-acetaminophen (PERCOCET) 5-325 MG per tablet Indications: Status post repeat low transverse section Take 1 tablet by mouth every 8 hours as needed for Pain for up to 3 days. 9 tablet 0 05/24/2020 05/27/2020 Active Start: 05-22-2020 oxyCODONE-acet aminophen (PERCOCET) 5-325 MG per tablet 1 tablet albuterol 0.833 mg/ml / ipratropium bromide 0.167 mg/ml inhalant solution (20 sources) Anticholinergic, beta2-Adrenergic Agonist Start: 12-05-2018 End: 08-27-2020 take 3 mL by inhalation every four hours ipratropium-albuterol (DUONEB) 0.5-2.5 (3) MG/3ML SOLN nebulizer solution Inhale 3 mLs into the lungs every 4 hours 360 mL 0 12/05/2018 08/27/2020 Discontinued (Therapy completed) aspirin 81 mg chewable tablet (17 sources) Platelet Aggregation Inhibitor, Nonsteroidal Anti-inflammatory Drug End: 05-24-2020 take 1 tablet by mouth once daily aspirin 81 MG chewable tablet Take 81 mg by mouth daily 0 05/24/2020 Discontinued (Stop Taking at Discharge) atropine sulfate 0.025 mg / diphenoxylate hydrochloride 2.5 mg oral tablet (1 source) Anticholinergic, Cholinergic Muscarinic Antagonist, Antidiarrheal Start: 02-05-2024 End: 02-05-2024 diphenoxylate-atropine (LOMOTIL) 2.5-0.025 MG per tablet 1 tablet Start: 02-05-2024 End: 02-05-2024 diphenoxylate-atropine (LOMO TIL) 2.5-0.025 MG per tablet 1 tablet barium sulfate 60 % suspension 355 mL (1 source) Start: 05-26-2021 End: 05-26-2021 barium sulfate 60 % suspension 355 mL benzonatate 100 mg oral capsule (1 source) Non-narcotic Antitussive Start: 09-24-2019 End: 09-24-2019 benzonatate (TESSALON) capsule 100 mg Blood Glucose Monitoring Suppl (TRUE METRIX METER) w/Device KIT (17 sources) Start: 11-27-2019 End: 05-24-2020 Blood Glucose Monitoring Suppl (TRUE METRIX METER) w/Device KIT use as directed 0 11/27/2019 05/24/2020 Discontinued (Stop Taking at Discharge) Start: 11-27-2019 Blood Glucose Monitoring Suppl (TRUE METRIX METER) w/Device KIT use as directed 0 11/27/2019 Suspended Start: 11-27-2019 Blood Glucose Monitoring Suppl (TRUE METRIX METER) w/Device KIT use as directed 0 11/27/2019 Active ceFAZolin 2000 mg injection (1 source) Cephalosporin Antibacterial Start: 11-12-2022 End: 11-12-2022 ceFAZolin (ANCEF) 2000 mg in 0.9% sodium chloride 100 mL IVPB cefTRIAXone (ROCEPHIN) 250 mg in lidocaine 1 % 1 mL IM Injection (1 source) Start: 01-10-2020 End: 01-10-2020 cefTRIAXone (ROCEPHIN) 250 mg in lidocaine 1 % 1 mL IM Injection citalopram 20 mg oral tablet (3 sources) Serotonin Reuptake Inhibitor Start: 07-13-2022 End: 10-29-2022 citalopram (CELEXA) 20 MG tablet citric acid 66.8 mg/ml / sodium citrate 100 mg/ml oral solution (1 source) Calculi Dissolution Agent, Anti-coagulant Start: 05-22-2020 End: 05-22-2020 citric acid-sodium citrate (BICITRA) solution 30 mL dimenhyDRINATE 50 mg oral tablet (2 sources) Start: 11-12-2022 End: 11-12-2022 dimenhyDRINATE (DRAMAMINE) tablet 50 mg Start: 03-20-2021 End: 03-20-2021 dimenhyDRINATE (DRAMAMINE) t ablet 50 mg docusate sodium 100 mg oral capsule (3 sources) Start: 05-22-2020 End: 06-13-2020 take 1 capsule by mouth twice daily docusate sodium (COLACE, DULCOLAX) 100 MG CAPS Take 100 mg by mouth 2 times daily 0 05/24/2020 06/13/2020 Discontinued (Therapy completed) doxycycline hyclate 100 mg oral capsule (2 sources) Tetracycline -class Drug Start: 07-08-2022 End: 07-08-2022 doxycycline hyclate (VIBRAMYCIN) capsule 100 mg Start: 07-08-2022 End: 07-18-2022 take 1 tablet by mouth twice daily doxycycline hyclate (VIBRA-TABS) 100 MG tablet Take 1 tablet by mouth 2 times daily for 10 days 20 tablet 0 07/08/2022 07/18/2022 Active 0.4 ml enoxaparin sodium 100 mg/ml prefilled syringe (2 sources) Low Molecular Weight Heparin Start: 11-12-2022 End: 11-12-2022 enoxaparin (LOVENOX) injection 40 mg Start: 05-23-2020 enoxaparin (LO VENOX) injection 40 mg esomeprazole 20 mg granules for oral suspension (20 sources) Proton Pump Inhibitor End: 08-27-2020 take 20 mg by mouth once daily esomeprazole Magnesium (NEXIUM) 20 MG PACK Take 20 mg by mouth daily 0 08/27/2020 Discontinued (Therapy completed) 2 ml famotidine 10 mg/ml injection (6 sources) Histamine-2 Receptor Antagonist Start: 05-22-2020 End: 05-22-2020 famotidine (PEPCID) injection 20 mg Start: 01-10-2020 End: 01-10-2020 famotidine (PEPCID) injectio n 20 mg Start: 07-29-2019 End: 12-14-2019 take 1 tablet by mouth twice daily famotidine (PEPCID) 20 MG tablet Take 1 tablet by mouth 2 times daily 60 tablet 0 07/29/2019 12/14/2019 Discontinued (LIST CLEANUP) Start: 07-28-2019 famotidine (PE PCID) injection 20 mg famotidine (PEPCID) 20 mg in sodium chloride (PF) 0.9 % 10 mL injection (1 source) Start: 01-04-2024 End: 01-04-2024 famotidine (PEPCID) 20 mg in sodium chloride (PF) 0.9 % 10 mL injection 2 ml fentaNYL 0.05 mg/ml injection (6 sources) Opioid Agonist Start: 11-12-2022 25 mcg, IntraV ENous, EVERY 5 MIN PRN, 2 doses, Starting on Sat11/12/22 at 1204, Until Discontinued, Pain Moderate (4-6) For Phase I. If Phase II oral narcotics have been administered in the last 60 minutes, do not administer IV narcotics unless specifically approved by provider. PACU only Start: 11-12-2022 End: 11-12-2022 50 mcg, IntraVENous, EVERY 5 MIN PRN, 2 doses, Starting on 11/12/22 at 1204, Until Sat11/12/22 at 1219, Pain Severe (7-10) For Phase I. If Phase II oral narcotics have been administered in the last 60 minutes, do not administer IV narcotics unless specifically approved by provider. PACU only Start: 03-20-2021 50 mcg, Intrav enous, EVERY 5 MIN PRN, Pain Severe (7-10), Starting on 03/20/21 at 1333, For 4 doses Phase I - Secondary therapy to be used after all initial severe pain medication doses have been administered. PACU only Start: 03-20-2021 25 mcg, Intrav enous, EVERY 5 MIN PRN, Pain Moderate (4-6), Starting on 03/20/21 at 1333, For 4 doses Phase I - Secondary therapy to be used after all initial moderate pain medication doses have been administered. PACU only Start: 07-29-2019 End: 07-29-2019 fentaNYL (SUBLIMAZE) injecti on 50 mcg Start: 07-28-2019 End: 07-28-2019 fentaNYL (SUBLIMAZE) injecti on 50 mcg 2 ml gentamicin 40 mg/ml injection (1 source) Start: 05-22-2020 End: 05-22-2020 gentamicin (GARAMYCIN) 40 MG /ML injection guaiFENesin (4 sources) End: 10-29-2022 guaiFENesin (COUGH SYRUP PO) Take by mouth 0 10/29/2022 Discontinued (Therapy completed) guaiFENesin (COU GH SYRUP PO) Take by mouth 0 Active 3 ml insulin, aspart, human 100 unt/ml pen injector (9 sources) Insulin Analog Start: 01-12-2020 End: 05-24-2020 Insulin Aspart FlexPen 100 UNIT/ML SOPN Indications: 6u before breakfast, 12u before lunch and 10u before dinner Inject 12 Units into the skin 3 times daily (with meals) Indications: 6u before breakfast, 12u before lunch and 10u before dinner 0 01/12/2020 05/24/2020 Discontinued (Stop Taking at Discharge) insulin human, isophane 100 unt/ml injectable suspension (15 sources) End: 05-24-2020 insulin NPH (HUMULIN N) 100 UNIT/ML injection vial Inject 25 Units into the skin nightly Per patient 0 05/24/2020 Discontinued (Stop Taking at Discharge) insulin NPH (HUM ULIN N) 100 UNIT/ML injection vial Inject into the skin 2 times daily (before meals) 6 units at bedtime 0 Active Iopamidol (1 source) Radiographic Contrast Agent Start: 07-29-2019 End: 07-29-2019 iopamidol (ISOVUE-370) 76 % injection 75 mL iopamidol (ISOVUE-370) 76 % injection 75 mL (7 sources) Start: 01-30-2024 End: 01-30-2024 iopamidol (ISOVUE-370) 76 % injection 75 mL Start: 11-23-2023 End: 11-23-2023 iopamidol (ISOVUE-370) 76 % injection 75 mL Start: 02-18-2023 End: 02-18-2023 iopamidol (ISOVUE-370) 76 % injection 75 mL Start: 07-08-2022 End: 07-08-2022 iopamidol (ISOVUE-370) 76 % injection 75 mL Start: 03-11-2022 End: 03-11-2022 iopamidol (ISOVUE-370) 76 % injection 75 mL Start: 08-27-2020 End: 08-27-2020 iopamidol (ISOVUE-370) 76 % injection 75 mL Start: 06-13-2020 End: 06-13-2020 iopamidol (ISOVUE-370) 76 % injection 75 mL levoFLOXacin 750 mg oral tablet (2 sources) Quinolone Antimicrobial Start: 11-19-2022 End: 12-24-2022 take 1 tablet by mouth once daily levoFLOXacin (LEVAQUIN) 750 MG tablet take 1 tablet by mouth once daily for 7 days 0 11/19/2022 12/24/2022 Discontinued (Therapy completed) 10 ml lidocaine hydrochloride 10 mg/ml injection (2 sources) Antiarrhythmic, Amide Local Anesthetic Start: 11-28-2020 End: 11-28-2020 lidocaine PF 1 % injection 20 mL Start: 09-25-2020 lidocaine 4 % external patch 1 patch metroNIDAZOLE 250 mg oral tablet (2 sources) Nitroimidazole Antimicrobial Start: 05-22-2020 End: 05-24-2020 metroNIDAZOLE (FLAGYL) tablet 500 mg Start: 01-10-2020 End: 01-10-2020 metroNIDAZOLE (FLAGYL) table t 2,000 mg 1 ml morphine sulfate 2 mg/ml cartridge (8 sources) Opioid Agonist Start: 11-01-2022 End: 11-01-2022 morphine (PF) injection 2 mg Start: 11-01-2022 End: 11-01-2022 morphine injection 4 mg Start: 09-27-2022 End: 09-27-2022 morphine injection 4 mg Start: 09-27-2022 End: 09-27-2022 morphine (PF) injection 2 mg Start: 09-24-2020 End: 09-24-2020 morphine injection 4 mg Start: 09-24-2020 End: 09-24-2020 morphine (PF) injection 2 mg Start: 08-27-2020 End: 08-27-2020 morphine (PF) injection 2 mg Start: 06-14-2020 End: 06-15-2020 morphine (PF) injection 2 mg 2 ml orphenadrine citrate 30 mg/ml injection (1 source) Muscle Relaxant Start: 09-17-2020 End: 09-17-2020 orphenadrine (NORFLEX) injection 60 mg predniSONE 20 mg oral tablet (5 sources) Start: 07-08-2022 End: 07-13-2022 predniSONE (DELTASONE) tablet 20 mg Start: 06-02-2021 End: 06-07-2021 predniSONE (DELTASONE) table t 20 mg Start: 09-17-2020 End: 09-21-2020 take 5 tablets by mouth once daily predniSONE (DELTASONE) 10 MG tablet Take 5 tablets by mouth daily for 4 days 20 tablet 0 09/17/2020 09/21/2020 Active [id number] PO (17 sources) End: 05-24-2020 RIGLGA-[id number]-[id number]-UU PO Ta ke by mouth 0 05/24/2020 Discontinued (Stop Taking at Discharge) [id number]-D6-B3-B12 -D3-FA PO Take by mouth 0 Suspended [id number]-B12 -D3-FA PO Take by mouth 0 Active promethazine hydrochloride 25 mg oral tablet (6 sources) Phenothiazine Start: 03-23-2023 End: 03-30-2023 promethazine (PHENERGAN) tablet 25 mg Start: 06-13-2020 promethazine ( PHENERGAN) tablet 12.5 mg Start: 05-25-2019 End: 05-25-2019 promethazine (PHENERGAN) inj ection 12.5 mg Start: 05-25-2019 End: 06-01-2019 take 1 tablet by mouth four times daily as needed for nausea promethazine (PHENERGAN) 25 MG tablet Take 1 tablet by mouth 4 times daily as needed for Nausea 20 tablet 0 05/25/2019 06/01/2019 Active End: 05-24-2020 take 1 tablet by mouth every six hours as needed for nausea promethazine (PHENERGAN) 12.5 MG tablet Take 12.5 mg by mouth every 6 hours as needed for Nausea 0 05/24/2020 Discontinued (Stop Taking at Discharge) Drtvtkxmaxktham-BTHD-LK (DAY QUIL PO) (4 sources) End: 10-29-2022 Immwynzdtuqqbag-TIIP-SC (DAYQUIL PO) Take by mouth 0 10/29/2022 Discontinued (Therapy completed) Pseudoephedrine- APAP-DM (DAYQUIL PO) Take by mouth 0 Active Respiratory Therapy Supplies (NEBULIZER COMPRESSOR) KIT (12 sources) Start: 12-05-2018 End: 08-27-2020 Respiratory Therapy Supplies (NEBULIZER COMPRESSOR) KIT Indications: Mild intermittent asthma with acute exacerbation , Influenza A 1 kit by Does not apply route once for 1 dose 1 kit 0 12/05/2018 08/27/2020 Discontinued (Therapy completed) Start: 12-05-2018 Respiratory Th erapy Supplies (NEBULIZER COMPRESSOR) KIT Indications: Mild intermittent asthma with acute exacerbation , Influenza A 1 kit by Does not apply route once for 1 dose 1 kit 0 12/05/2018 Active 50 ml sodium chloride 9 mg/m l injection (20 sources) Start: 01-04-2024 End: 01-04-2024 sodium chloride 0.9 % bolus 1,000 mL Start: 03-23-2023 End: 03-23-2023 0.9 % sodium chloride bolus Start: 02-18-2023 End: 02-18-2023 0.9 % sodium chloride bolus Start: 11-12-2022 take 1 dose intraven ously twice daily 5-40 mL, IntraVENous, EVERY 12 HOURS SCHEDULED (2 times per day), First dose on Sat11/12/22 at 2100, Until Discontinued For Line Patency: Peripheral IV = 5 mL; Midline or Central Line = 10 mL/lumen. If following IV push medication, administer flush at same rate as the IV push. Flush volume is determined by type of infusion therapy being given. For non-viscous solutions use: Peripheral IV = 5 mL Midline or Central Line = 10 mL/lumen For viscous solutions (i.e. blood components, parenteral nutrition, contrast media, or after obtaining blood sample) use: Peripheral IV = 10 mL Midline or Central Line = 20 mL/lumen PACU only Start: 11-12-2022 IntraVENous, a t 5-250 mL/hr, PRN, if patient receiving piggyback infusions and maintenance fluids are not ordered OR KVO fluids to protect IV site / prevent frequent line interruptions/ long duration, Starting on Sat11/12/22 at 1204 For piggyback infusion, administer at same rate as piggyback for a total of 25 mL. Enter 25 mL into dose field and piggyback rate into rate field of order. If piggyback is infusing at a rate less than 100 mL/hr, enter 25 mL into dose field and 100 mL/hr into rate field of order. For KVO fluids, enter rate of 20 mL/hr or less into rate field of order. PACU only Start: 11-12-2022 take 5-40 mL intrave nously once as needed 5-40 mL, IntraVENous, PRN, Starting on Sat11/12/22 at 1204, Until Discontinued, Line Care, After every IV line use For Line Patency: Peripheral IV = 5 mL; Midline or Central Line = 10 mL/lumen. If following IV push medication, administer flush at same rate as the IV push. Flush volume is determined by type of infusion therapy being given. For non-viscous solutions use: Peripheral IV = 5 mL Midline or Central Line = 10 mL/lumen For viscous solutions (i.e. blood components, parenteral nutrition, contrast media, or after obtaining blood sample) use: Peripheral IV = 10 mL Midline or Central Line = 20 mL/lumen PACU only Start: 11-12-2022 0.9 % sodium c hloride infusion Start: 11-12-2022 sodium chlorid e flush 0.9 % injection 5-40 mL Start: 09-27-2022 End: 09-28-2022 0.9 % sodium chloride bolus Start: 03-11-2022 End: 03-11-2022 0.9 % sodium chloride bolus Start: 09-25-2020 10 mL, Intrave nous, EVERY 12 HOURS SCHEDULED (2 times per day), First dose on Sat09/25/20 at 0900 Start: 09-25-2020 take 10 mL intraveno us route once as needed 10 mL, Intravenous, PRN, Line Care, After every IV line use, Starting Sat09/25/20 at 0158 Start: 06-14-2020 10 mL, Intrave nous, EVERY 12 HOURS SCHEDULED (2 times per day), First dose on Sat06/14/20 at 0900 Start: 06-13-2020 take 10 mL intraveno us route once as needed 10 mL, Intravenous, PRN, Line Care, After every IV line use, Starting Sat06/13/20 at 2339 Start: 05-22-2020 sodium chlorid e flush 0.9 % injection 10 mL Start: 03-29-2020 End: 03-29-2020 0.9 % sodium chloride bolus Start: 02-01-2020 End: 02-01-2020 0.9 % sodium chloride bolus Start: 01-10-2020 End: 01-10-2020 0.9 % sodium chloride bolus Start: 09-24-2019 End: 09-24-2019 0.9 % sodium chloride bolus Start: 07-28-2019 End: 07-29-2019 0.9 % sodium chloride bolus Start: 05-25-2019 End: 05-25-2019 0.9 % sodium chloride bolus Problems Active Problems Problem Classification Problem Date Documented Date Episodic/Chronic Abdominal pain (20 sources) Right lower quadrant pain; Translations: [Right upper quadrant pain] Onset: 7 Resolved: 0 07-10-2017 Episodic Acute bronchitis (1 source) Acute bronchitis; Translations: [Acute bronchitis, unspecified] Episodic Anxiety disorders (2 sources) Generalized anxiety disorder; Translations: [Generalized anxiety disorder] Onset: 3 11-30-2022 Chronic Biliary tract disease (20 sources) Cholangiectasis; Translations: [Other specified diseases of biliary tract] Onset: 7 03-20-2021 Chronic Chronic obstructive pulmonary disease and bronchiectasis (1 source) Bronchitis; Translations: [Bronchitis, not specified as acute or chronic] Episodic Coagulation and hemorrhagic disorders (20 sources) Hypercoagulability state; Translations: [Other primary thrombophilia] Onset: 0 08-03-2020 Chronic Deficiency and other anemia (1 source) Iron deficiency anemia due to blood loss; Translations: [Iron deficiency anemia due to chronic blood loss] Diabetes mellitus with complications (1 source) Type 2 diabetes mellitus with hyperglycemia; Translations: [Type 2 diabetes mellitus with hyperglycemia] Onset: 4 Chronic Diabetes mellitus without complication (5 sources) Diabetes mellitus; Translations: [Type 2 diabetes mellitus without complications] Onset: 3 11-30-2022 Chronic Diseases of white blood cells (20 sources) Band neutrophil count above reference range; Translations: [Bandemia] Onset: 7 03-20-2021 Chronic Endometriosis (3 sources) Endometriosis (clinical); Translations: [Endometriosis, unspecified] Onset: 3 Chronic Esophageal disorders (1 source) Gastroesophageal reflux disease 11-30-2022 Chronic Essential hypertension (4 sources) Essential hypertension; Translations: [Essential (primary) hypertension] Onset: 3 11-30-2022 Chronic External cause codes: Fall (1 source) Fall; Translations: [Fall, initial encounter] Immunizations and screening for infectious disease (1 source) Patient encounter status; Translations: [Encounter for laboratory testing for COVID-19 virus] Episodic Intracranial injury (1 source) Concussion with no loss of consciousness; Translations: [Concussion without loss of consciousness, initial encounter] Episodic Menstrual disorders (20 sources) Menorrhagia; Translations: [Excessive and frequent menstruation with regular cycle] Chronic Mood disorders (1 source) Depressive disorder 11-30-2022 Chronic Mood disorders (1 source) Mood disorders; Translations: [DEPRESSION UNSPECIFIED] Onset: 3 Nausea and vomiting (4 sources) Nausea and vomiting; Translations: [Nausea] Onset: 4 Episodic Noninfectious gastroenteritis (2 sources) Noninfectious enteritis; Translations: [Noninfective gastroenteritis and colitis, unspecified] Onset: 3 Episodic Other aftercare (1 source) Other rn long term care (current) drug therapy; Translations: [OTH PERCOLATOR OPERATOR CURRENT DRUG THERAPY] Onset: 3 Episodic Other and ill-defined heart disease (20 sources) Left ventricular hypertrophy; Translations: [Cardiomegaly] Onset: 0 04-04-2020 Chronic Other and ill-defined heart disease (14 sources) Cardiomegaly; Translations: [Cardiomegaly] Onset: 0 04-04-2020 Chronic Other connective tissue disease (2 sources) Pain in right lower limb; Translations: [Right leg pain] Episodic Other connective tissue disease (1 source) Musculoskeletal pain; Translations: [Myalgia, other site] Episodic Other diseases of bladder and urethra (11 sources) Disorder of bladder; Translations: [Other specified disorders of bladder] Onset: 3 Chronic Other female genital disorders (1 source) History of gynecological disorder; Translations: [Personal history of other diseases of the female genital tract] Episodic Other gastrointestinal disorders (7 sources) Diarrhea; Translations: [Diarrhea, unspecified] Onset: 3 Episodic Other gastrointestinal disorders (2 sources) Dysphagia; Translations: [Dysphagia, unspecified] Onset: 3 Episodic Other gastrointestinal disorders (4 sources) Dysphagia, unspecified; Translations: [DYSPHAGIA UNSPECIFIED] Onset: 3 Episodic Other gastrointestinal disorders (2 sources) Diarrhea, unspecified; Translations: [DIARRHEA UNSPECIFIED] Onset: 3 Episodic Other injuries and conditions due to external causes (1 source) Injury of head; Translations: [Injury of head, initial encounter] Episodic Other injuries and conditions due to external causes (1 source) Closed injury of head; Translations: [Closed head injury, initial encounter] Episodic Other lower respiratory disease (3 sources) Dyspnea; Translations: [SOB (shortness of breath)] 11-30-2022 Episodic Other lower respiratory disease (1 source) Cough; Translations: [Cough] Episodic Other nervous system disorders (1 source) Other chronic pain; Translations: [Other chronic pain] Onset: 3 Chronic Other nervous system disorders (1 source) Paresthesia of skin; Translations: [Paresthesia of skin] Onset: 3 Episodic Other nutritional; endocrine; and metabolic disorders (20 sources) Body mass index 30+ - obesity; Translations: [Obesity, unspecified] Onset: 7 03-25-2017 Chronic Other nutritional; endocrine; and metabolic disorders (20 sources) Hypercalcemia; Translations: [Hypercalcemia] Onset: 7 03-25-2017 Chronic Other nutritional; endocrine; and metabolic disorders (2 sources) Morbid obesity; Translations: [Morbid (severe) obesity due to excess calories] Chronic Other nutritional; endocrine; and metabolic disorders (1 source) Morbid (severe) obesity due to excess calories; Translations: [MORBID SEVERE OBES D/T EXCESS CALE] Onset: 3 Chronic Other nutritional; endocrine; and metabolic disorders (1 source) Body mass index (BMI) 37.0-37.9, adult; Translations: [BODY MASS INDEX BMI 37.0-37.9 ADULT] Onset: 3 Chronic Other upper respiratory infections (2 sources) Acute upper respiratory infection; Translations: [Acute upper respiratory infection, unspecified] Episodic Ovarian cyst (1 source) Cyst of right ovary 11-30-2022 Episodic Ovarian cyst (1 source) Cyst of right ovary; Translations: [Cyst of right ovary] Residual codes; unclassified (20 sources) H/O: major abdominal surgery; Translations: [Acquired absence of other genital organ(s)] 05-22-2020 Episodic Residual codes; unclassified (1 source) Bilateral lower limb edema 11-30-2022 Episodic Residual codes; unclassified (1 source) Insomnia 11-30-2022 Episodic Residual codes; unclassified (1 source) Acquired absence of ovaries, bilateral; Translations: [ACQUIRED ABSENCE OVARIES BILATERAL] Onset: 3 Episodic Residual codes; unclassified (1 source) Acquired absence of other specified parts of digestive tract; Translations: [ACQ ABSENCE OTH PART DIGESTV TRACT] Onset: 3 Episodic Residual codes; unclassified (1 source) Acquired absence of both cervix and uterus; Translations: [ACQUIRED ABSENCE BOTH CERVIX AND UTERUS] Onset: 3 Episodic Skin and subcutaneous tissue infections (1 source) Cutaneous abscess of right lower limb; Translations: [Abscess of right thigh] Episodic Spondylosis; intervertebral disc disorders; other back problems (10 sources) Prolapsed lumbar intervertebral disc; Translations: [Lumbar disc prolapse with radiculopathy] Onset: 3 11-30-2022 Chronic Substance-related disorders (20 sources) Smoker; Translations: [Nicotine dependence, unspecified, uncomplicated] Onset: 7 Resolved: 3 04-09-2017 Chronic Syncope (1 source) Syncope; Translations: [Syncope and collapse] Episodic Unclassified (16 sources) Finding of uterine contractions; Translations: [Uterine contractions during ] Onset: 0 04-07-2020 Unclassified (1 source) ESOPHAGITIS UNSPEC WITHOUT BLEEDING; Translations: [ESOPHAGITIS UNSPEC WITHOUT BLEEDING] Onset: 3 Unclassified (1 source) 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; Translations: [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] Onset: 3 Unclassified (3 sources) LOW BACK PAIN, UNSPECIFIED; Translations: [LOW BACK PAIN, UNSPECIFIED] Onset: 2 Unclassified (1 source) CONTACT W/AND (SUSP) EXPOS COVID-19; Translations: [CONTACT W/AND (SUSP) EXPOS COVID-19] Onset: 2 Unclassified (1 source) Postviral fatigue syndrome; Translations: [Postviral fatigue syndrome] Onset: 4 Unclassified (2 sources) Low back pain, unspecified; Translations: [Low back pain, unspecified] Onset: 3 Past or Other Problems Problem Classification Problem Date Documented Da te Episodic/Chronic Abdominal hernia (20 sources) Hiatal hernia; Translations: [Diaphragmatic hernia without obstruction or gangrene] Onset: 04-09-2017 04-09-2017 Episodic Biliary tract disease (20 sources) Cholangiectasis; Translations: [Common bile duct dilatation] Onset: 03-26-2017 03-26-2017 Episodic Cardiac dysrhythmias (20 sources) Tachycardia; Translations: [Palpitations] Onset: 12-30-2019 12-30-2019 Episodic Complications of surgical procedures or medical care (11 sources) Complication of surgical procedure; Translations: [Unspecified complication of procedure, initial encounter] Onset: 11-12-2022 Episodic Conditions associated with dizziness or vertigo (20 sources) Lightheadedness; Translations: [Dizziness] Onset: 12-30-2019 12-30-2019 Episodic Diabetes mellitus without complication (6 sources) Hyperglycemia; Translations: [Hyperglycemia, unspecified] Onset: 08-01-2023 Episodic Diabetes or abnormal glucose tolerance complicating ; childbirth; or the puerperium (20 sources) Gestational diabetes mellitus; Translations: [Gestational diabetes mellitus in , unspecified control] Onset: 05-22-2020 Resolved: 03-20-2021 03-26-2017 Episodic Diseases of white blood cells (20 sources) Band neutrophil count above reference range; Translations: [Bandemia] Onset: 03-25-2017 03-25-2017 Episodic Early or threatened labor (20 sources) False labor before 37 completed weeks of gestation; Translations: [Finding of uterine contractions] Onset: 04-07-2020 Resolved: 03-20-2021 11-10-2017 Episodic distress and abnormal forces of labor (5 sources) Finding of uterine contractions; Translations: [Other uterine inertia] Onset: 04-07-2020 Resolved: 03-20-2021 03-20-2021 Episodic Fever of unknown origin (5 sources) Fever; Translations: [Fever] 03-25-2017 Episodic Fluid and electrolyte disorders (1 source) Dehydration; Translations: [Dehydration] Onset: 06-03-2023 Episodic Inflammatory diseases of female pelvic organs (11 sources) Adhesions of uterus; Translations: [Female pelvic peritoneal adhesions (postinfective)] Onset: 11-12-2022 Episodic Influenza (1 source) Influenza due to other identified influenza virus with other respiratory manifestations; Translations: [Influenza due to other identified influenza virus with other respiratory manifestations] Onset: 10-14-2023 Episodic Malaise and fatigue (1 source) Other fatigue; Translations: [Other fatigue] Onset: 06-20-2023 Episodic Malposition; malpresentation (20 sources) Breech presentation; Translations: [Maternal care for breech presentation, not applicable or unspecified] Resolved: 03-26-2017 03-26-2017 Episodic Nonspecific chest pain (3 sources) Chest pain; Translations: [Chest pain, unspecified] Onset: 06-15-2023 Episodic Other circulatory disease (20 sources) Prehypertension; Translations: [Elevated blood-pressure reading, without diagnosis of hypertension] Onset: 12-30-2019 12-30-2019 Episodic Other complications of ; puerperium affecting management of mother (20 sources) Complication of obstetrical surgical wound; Translations: [Complication of the puerperium, unspecified] Onset: 03-30-2016 Resolved: 05-30-2016 05-30-2016 Episodic Other complications of (20 sources) Complication occurring during ; Translations: [Other specified related conditions, unspecified trimester] Onset: 03-03-2016 Resolved: 05-30-2016 05-30-2016 Episodic Other connective tissue disease (2 sources) Paraparesis; Translations: [Other symptoms and signs involving the musculoskeletal system] Onset: 06-21-2023 06-21-2023 Episodic Other connective tissue disease (3 sources) Other symptoms and signs involving the musculoskeletal system; Translations: [Other musculoskeletal symptoms referable to limbs] Onset: 06-21-2023 06-21-2023 Episodic Other gastrointestinal disorders (20 sources) Personal history of other diseases of the digestive system; Translations: [History of pancreatitis] Onset: 04-09-2017 04-09-2017 Episodic Other gastrointestinal disorders (11 sources) Adhesion of omentum; Translations: [Peritoneal adhesions (postprocedural) (postinfection)] Onset: 11-12-2022 Episodic Other infections; including parasitic (20 sources) Infection by Trichomonas; Translations: [Trichomoniasis, unspecified] Onset: 03-03-2016 Resolved: 05-30-2016 05-30-2016 Episodic Other nervous system disorders (13 sources) Postoperative pain ; Translations: [Other acute postprocedural pain] Onset: 11-12-2022 Episodic Other nervous system disorders (1 source) Anesthesia of skin; Translations: [ANESTHESIA OF SKIN] Onset: 04-25-2022 Episodic Other and delivery including normal (20 sources) Normal ; Translations: [] Onset: 03-03-2016 Resolved: 05-30-2016 06-27-2017 Episodic Pancreatic disorders (not diabetes) (20 sources) Acute pancreatitis; Translations: [Acute pancreatitis without necrosis or infection, unspecified] Onset: 03-25-2017 03-26-2017 Episodic Pulmonary heart disease (20 sources) Acute pulmonary embolism; Translations: [Pulmonary thromboembolism] Onset: 06-13-2020 06-14-2020 Episodic Residual codes; unclassified (5 sources) Wound pain ; Translations: [Incisional pain] Onset: 09-20-2017 09-20-2017 Episodic Residual codes; unclassified (20 sources) H/O: section; Translations: [H/O: ] Onset: 06-27-2017 Resolved: 03-26-2017 06-27-2017 Episodic Residual codes; unclassified (5 sources) Gestation period, 13 weeks; Translations: [13 weeks gestation of ] Onset: 06-27-2017 06-27-2017 Episodic Residual codes; unclassified (20 sources) Personal history of other complications of , childbirth and the puerperium; Translations: [History of pre-eclampsia] Onset: 12-30-2019 Resolved: 03-20-2021 12-30-2019 Episodic Residual codes; unclassified (20 sources) Gestation period, 38 weeks; Translations: [38 weeks gestation of ] Resolved: 03-26-2017 03-26-2017 Episodic Residual codes; unclassified (20 sources) Gestation period, 38 weeks; Translations: [38 weeks gestation of ] Resolved: 03-26-2017 03-26-2017 Spondylosis; intervertebral disc disorders; other back problems (20 sources) Acute back pain with sciatica; Translations: [Lumbar radiculopathy] Onset: 09-25-2020 09-25-2020 Episodic Unclassified (18 sources) Finding of sensation of abdomen; Translations: [Abdominal cramps] Onset: 03-29-2020 Resolved: 03-29-2020 03-29-2020 Unclassified (14 sources) Complication of obstetrical surgical wound; Translations: [Wound infection/hemorrhage, obstetric surgical, condition] Onset: 03-30-2016 Resolved: 05-30-2016 05-30-2016 Unclassified (2 sources) LOW BACK PAIN, UNSPECIFIED; Translations: [LOW BACK PAIN, UNSPECIFIED] Onset: 04-23-2022 Viral infection (2 sources) Viral disease; Translations: [Viral infection, unspecified] Onset: 01-04-2024 01-04-2024 Episodic Results Test Name Value Interpretation Reference Range Facility Basic Metabolic Profon 04-09 Glucose [Mass/Vol] 401 mg/dL Critically high 70-99 [facility] Comment on above: Performed By: #### C DORIE ROBLEDO, BMP ####[address] [place] [address] Lab Director: Ray Arceo MD Anion gap [Moles/Vol] 16 mmol/L Normal 9-17 [facility] Comment on above: Performed By: #### C DORIE ROBLEDO, BMP ####[address] , [facility]83 lab Director: Ray Arceo MD BUN/CRE Ratio 13 Normal 9-20 [facility] Comment on above: Performed By: #### C DORIE ROBLEDO, BMP ####[address] , [facility]83 lab Director: Ray Arceo MD Calcium [Mass/Vol] 9.4 mg/dL Normal 8.6-10.4 [facility] Comment on above: Performed By: #### C DORIE ROBLEDO, BMP ####[address] [place] [address] lab Director: Ray Arceo MD Chloride [Moles/Vol] 101 mmol/L Normal 98-107 [facility] Comment on above: Performed By: #### C DORIE ROBLEDO, BMP ####[address] , [place] [id number] Lab Director: Ray Arceo MD CO2 [Moles/Vol] 19 mmol/L Low 20-[address] [facility] Comment on above: Performed By: #### C DORIE ROBLEDO, BMP ####[address] , [place] [id number] Lab Director: Ray Arceo MD Creatinine [Mass/Vol] 0.8 mg/dL Normal 0.5-0.9 [facility] Comment on above: Performed By: #### C DORIE ROBLEDO, BMP ####[address] , [place] [id number] Lab Director: Ray Arceo MD GFR/1.73 sq M.predicted among non-blacks MDRD (S/P/Bld) [Vol rate/Area] mL/min/{1.73_m2} Normal >60 [facility] Comment on above: Result Comment: Thes e results are not intended for use in patients <18 years of age.eGFR results are calculated without a race factor using the 2020 CKD-EPI equation.Careful clinical correlation is recommended, particularly when comparing to results calculated using previous equations.The CKD-EPI equation is less accurate in patients with extremes of muscle mass, extra-renal metabolism of creatine, excessive creatine ingestion, or following therapy that affects renal tubular secretion. Performed By: #### C DORIE ROBLEDO, BMP ####[address] , [place] [id number] Lab Director: Ray Arceo MD Potassium [Moles/Vol] 3.8 mmol/L Normal 3.7-5.3 [facility] Comment on above: Performed By: #### C DORIE ROBLEDO, BMP ####[address] , [place] [id number] Lab Director: Ray Arceo MD Sodium [Moles/Vol] 136 mmol/L Normal 135-144 [facility] Comment on above: Performed By: #### C VENKAT , BMP ####[address] [place] [address] Lab Director: Ray Arceo MD Urea nitrogen [Mass/Vol] 10 mg/dL Normal 6-20 [facility] Comment on above: Performed By: #### C DORIE ROBLEDO, BMP ####[address] , [facility]83 Lab Director: Ray Arceo MD Beta Hydroxybutyrateon 04-09 Beta Hydroxybutyrate 0.14 mmol/L Normal 0.02-0.27 [facility] Comment on above: Performed By: #### C DORIE ROBLEDO, BMP ####[address] , [facility]83 Lab Director: Ray Arceo MD CBC with Diffon 04-09-2024 Abs. Basophil 0.03 k/uL Normal 0.00-0.20 [facility] Comment on above: Performed By: #### C VENKAT , BMP ####[address] , [facility]83 Lab Director: Ray Arceo MD Abs.Imm.Granulocyte 0.03 k/uL Normal 0.00-0.30 [facility] Comment on above: Performed By: #### C DORIE ROBLEDO, BMP ####[address] [place] [address] Lab Director: Ray Arceo MD Abs.Neutrophil (Seg) 7.10 k/uL Normal 1.50-8.10 [facility] Comment on above: Performed By: #### C DORIE ROBLEDO, BMP ####[address] , [place] [id number] Lab Director: Ray Arceo MD Basophils/100 WBC (Bld) 0 % Normal 0-2 M [facility] Comment on above: Performed By: #### C DORIE ROBLEDO, BMP ####[address] [place] [address] Lab Director: Ray Arceo MD Eosinophils (Bld) [#/Vol] 0.08 10*3/uL Normal 0.00-0.44 [facility] Comment on above: Performed By: #### C VENKAT , BMP ####[address] , [facility]83 Lab Director: Ray Arceo MD Eosinophils/100 WBC (Bld) 1 % Normal 1-4 [facility] Comment on above: Performed By: #### C VENKAT , BMP ####[address] [place] [address] Lab Director: Ray Arceo MD Erythrocyte distribution width (RBC) [Ratio] 13.1 % Normal 11.8-14.4 [facility] Comment on above: Performed By: #### C VENKAT , BMP ####[address] , [facility]83 Lab Director: Ray Arceo MD Hematocrit (Bld) [Volume fraction] 44.4 % Normal 36.3-47.1 [facility] Comment on above: Performed By: #### C VENKAT , BMP ####[address] , [place] [address])[phone] Director: Ray Arceo MD Hemoglobin (Bld) [Mass/Vol] 14.9 g/dL Normal 11.9-15.1 [facility] Comment on above: Performed By: #### C VENKAT , BMP ####[address] , [place] [id number] Lab Director: Ray Arceo MD Immature granulocytes/100 WBC (Bld) 0 % Normal 0 [facility] Comment on above: Performed By: #### C VENKAT , BMP ####[address] , [place] [address] Lab Director: Ray Arceo MD Lymphocytes (Bld) [#/Vol] 2.57 10*3/uL Normal 1.10-3.70 [facility] Comment on above: Performed By: #### C VENKAT , BMP ####[address] , [place] [id number] Lab Director: Ray Arceo MD Lymphocytes/100 WBC (Bld) 25 % Normal 24-43 [facility] Comment on above: Performed By: #### C VENKAT , BMP ####[address] , [facility]59([facility])[phone] Director: Ray Arceo MD MCH (RBC) [Entitic mass] 30.6 pg Normal 25.2-33.5 [facility] Comment on above: Performed By: #### C VENKAT , BMP ####[address] , [facility][phone] Director: Ray Arceo MD MCHC (RBC) [Mass/Vol] 33.6 g/dL Normal 28.4-34.8 [facility] Comment on above: Performed By: #### C VENKAT , BMP ####[address] , [facility]94 Lab Director: Ray Arceo MD MCV (RBC) [Entitic vol] 91.2 fL Normal 82.6-102.9 M [facility] Comment on above: Performed By: #### C VENKAT , BMP ####[address] [place] [address] Lab Director: Ray Arceo MD Monocytes (Bld) [#/Vol] 0.48 10*3/uL Normal 0.10-1.20 [facility] Comment on above: Performed By: #### C VENKAT , BMP ####[address] , [place] [id number] Lab Director: Ray Arceo MD Monocytes/100 WBC (Bld) 5 % Normal 3-12 M [facility] Comment on above: Performed By: #### C VENKAT , BMP ####[address] [place] [address] Lab Director: Ray Arceo MD Neutrophil (Seg) 69 % High 36-65 [facility] Comment on above: Performed By: #### C VENKAT , BMP ####[address] , [place] [id number] Lab Director: Ray Arceo MD NRBC Automated 0.0 per 100 WBC Normal 0.0 [facility] Comment on above: Performed By: #### C VENKAT , BMP ####[address] [place] [address] Lab Director: Ray Arceo MD Platelet mean volume (Bld) [Entitic vol] 11.0 fL Normal 8.1-13.5 [facility] Comment on above: Performed By: #### C VENKAT , BMP ####[address] , [place] [phone] Director: Ray Arceo MD Platelets (Bld) [#/Vol] 288 10*3/uL Normal 138-453 [facility] Comment on above: Performed By: #### C VENKAT , BMP ####[address] [place] [address] Lab Director: Ray Arceo MD RBC (Bld) [#/Vol] 4.87 10*6/uL Normal 3.95-5.11 [facility] Comment on above: Performed By: #### C VENKAT , BMP ####[address] [place] [address] Lab Director: Ray Arceo MD WBC (Bld) [#/Vol] 10.3 10*3/uL Normal 3.5-11.3 [facility] Comment on above: Performed By: #### C DP, BH, BMP ####[facility] [place] , [place] [address] Lab Director: Ray Arceo MD Glucose, Whole Bloodon 04-09 Glucose [Mass/Vol] 304 mg/dL High 74-100 [facility] Glucose [Mass/Vol] 388 mg/dL High 74-100 [facility] UA w/Reflex Cultureon 2023 Bilirubin, SemiQt,Ur Negative Normal NEG [facility] Comment on above: Performed By: #### U MICAO, UAX ####[facility] [place] , [place] [id number] lab Director: Ray Arceo MD Blood, Urine Negative Normal NEG [facility] Comment on above: Performed By: #### U MICAO, UAX ####[facility] [place] , [place] [id number] lab Director: Ray Arceo MD Clarity (U) Clear Normal CLEAR [facility] Comment on above: Performed By: #### U MICAO, UAX ####[facility] [place] , [place] [id number] Lab Director: Ray Arceo MD Color (U) Yellow Normal YEL [facility] Comment on above: Performed By: #### U MICAO, UAX ####[facility] [place] , [place] [id number] Lab Director: Ray Arceo MD Glucose Ql (U) 3+ mg/dL Abnormal NEG [facility] Comment on above: Performed By: #### U MICAO, UAX ####[facility] [place] , [place] 737[address] Lab Director: Ray Arceo MD Ketones Ql (U) Negative Normal NEG [facility] Comment on above: Performed By: #### U MICAO, UAX ####[address] , [place] [id number] Lab Director: Ray Arceo MD Leukocyte esterase Test strip Ql (U) Negative Normal NEG [facility] Comment on above: Performed By: #### U MICAO, UAX ####[address] [place] [address] Lab Director: Ray Arceo MD Nitrite,Ur Negative Normal NEG [facility] Comment on above: Performed By: #### U MICAO, UAX ####[address] [place] [address] Lab Director: Ray Arceo MD PH,Ur 6.0 Normal 5.0-9.0 [facility] Comment on above: Performed By: #### U MICAO, UAX ####[address] [place] [address] Lab Director: Ray Arceo MD Protein Ql (U) Negative Normal NEG [facility] Comment on above: Performed By: #### U MICAO, UAX ####[address] [place] [address] Lab Director: Ray Arceo MD Spec. [place],Ur 1.025 High 1.010-1.020 [facility] Comment on above: Performed By: #### U MICAO, UAX ####[address] [place] [address] Lab Director: Ray Arceo MD Urobilinogen,Ur Normal Normal 0.0-1.[address] [facility] Comment on above: Performed By: #### U MICAO, UAX ####[address] [place] [address] Lab Director: Ray Arceo MD Urinalysis,Microon 4 Bacteria TRACE Abnormal NONE [facility] Comment on above: Performed By: #### U MICAO, UAX ####[address] , [place] [id number] Lab Director: Ray Arceo MD Epithelial cells LM Ql (Urine sed) 0 TO 2 Normal 0-25 [facility] Comment on above: Performed By: #### U MICAO, UAX ####[address] [place] [address] Lab Director: Ray Arceo MD Mucus Strands TRACE Abnormal NONE [facility] Comment on above: Performed By: #### U MICAO, UAX ####[address] , [place] [id number] Lab Director: Ray Arceo MD Urine RBC's 0 TO 2 Normal 0-2 [facility] Comment on above: Performed By: #### U MICAO, UAX ####[address] , [place] [id number] Lab Director: Ray Arceo MD Urine WBC's 0 TO 2 Normal 0-5 [facility] Comment on above: Performed By: #### U MICAO, UAX ####[address] [place] [address] Lab Director: Ray Arceo MD Beta Hydroxybutyrateon 04-06 Beta Hydroxybutyrate 0.18 mmol/L Normal 0.02-0.27 [facility] Comment on above: Performed By: #### C P, MG, BH, CDP ####[address] , [place] [id number] Lab Director: Ray Arceo MD CBC with Diffon 04-06-2024 Abs. Basophil 0.06 k/uL Normal 0.00-0.20 [facility] Comment on above: Performed By: #### C P, MG, BH, CDP ####[address] , [place] [address] Lab Director: Ray Arceo MD Abs.Imm.Granulocyte 0.03 k/uL Normal 0.00-0.30 [facility] Comment on above: Performed By: #### C P, MG, BH, CDP ####[address] , [place] [address] Lab Director: Ray Arceo MD Abs.Neutrophil (Seg) 6.25 k/uL Normal 1.50-8.10 [facility] Comment on above: Performed By: #### C P, MG, BH, CDP ####[address] , [place] [address])[phone] Director: Ray Arceo MD Basophils/100 WBC (Bld) 1 % Normal 0-2 [facility] Comment on above: Performed By: #### C P, MG, BH, CDP ####[address] , [place] [address] Lab Director: Ray Arceo MD Eosinophils (Bld) [#/Vol] 0.10 10*3/uL Normal 0.00-0.44 [facility] Comment on above: Performed By: #### C P, MG, BH, CDP ####[address] , [place] [address])[phone] Director: Ray Arceo MD Eosinophils/100 WBC (Bld) 1 % Normal 1-4 [facility] Comment on above: Performed By: #### C P, MG, BH, CDP ####[address] [address] , [place] [address] Lab Director: Ray Arceo MD Erythrocyte distribution width (RBC) [Ratio] 13.0 % Normal 11.8-14.4 [facility] Comment on above: Performed By: #### C P, MG, BH, CDP ####[address] , [place] [id number] Lab Director: Ray Arceo MD Hematocrit (Bld) [Volume fraction] 45.7 % Normal 36.3-47.1 [facility] Comment on above: Performed By: #### C P, MG, BH, CDP ####[address] , [facility]83 Lab Director: Ray Arceo MD Hemoglobin (Bld) [Mass/Vol] 15.5 g/dL High 11.9-15.1 [facility] Comment on above: Performed By: #### C P, MG, BH, CDP ####[address] , [facility]83 Lab Director: Ray Arceo MD Immature granulocytes/100 WBC (Bld) 0 % Normal 0 [facility] Comment on above: Performed By: #### C P, MG, BH, CDP ####[address] , [facility]83 Lab Director: Ray Arceo MD Lymphocytes (Bld) [#/Vol] 3.48 10*3/uL Normal 1.10-3.70 [facility] Comment on above: Performed By: #### C P, MG, BH, CDP ####[address] , [facility]83 Lab Director: Ray Arceo MD Lymphocytes/100 WBC (Bld) 34 % Normal 24-43 [facility] Comment on above: Performed By: #### C P, MG, BH, CDP ####[address] , [facility]83 Lab Director: Ray Arceo MD MCH (RBC) [Entitic mass] 30.3 pg Normal 25.2-33.5 [facility] Comment on above: Performed By: #### C P, MG, BH, CDP ####[address] , [place] [address])[phone] Director: Ray Arceo MD MCHC (RBC) [Mass/Vol] 33.9 g/dL Normal 28.4-34.8 [facility] Comment on above: Performed By: #### C P, MG, BH, CDP ####[address] , [place] [address])[phone] Director: Ray Arceo MD MCV (RBC) [Entitic vol] 89.3 fL Normal 82.6-102.9 [facility] Comment on above: Performed By: #### C P, MG, BH, CDP ####[address] , [place] [address])[phone] Director: Ray Arceo MD Monocytes (Bld) [#/Vol] 0.42 10*3/uL Normal 0.10-1.20 [facility] Comment on above: Performed By: #### C P, MG, BH, CDP ####[address] , [place] [address])[phone] Director: Ray Arceo MD Monocytes/100 WBC (Bld) 4 % Normal 3-12 [facility] Comment on above: Performed By: #### C P, MG, BH, CDP ####[address] , [place] [address])[phone] Director: Ray Arceo MD Neutrophil (Seg) 60 % Normal 36-65 [facility] Comment on above: Performed By: #### C P, MG, BH, CDP ####[address] , [facility]46([facility])[phone] Director: Ray Arceo MD NRBC Automated 0.0 per 100 WBC Normal 0.0 [facility] Comment on above: Performed By: #### C P, MG, BH, CDP ####[address] , [place] [address])[phone] Director: Ray Arceo MD Platelet mean volume (Bld) [Entitic vol] 12.1 fL Normal 8.1-13.5 [facility] Comment on above: Performed By: #### C P, MG, BH, CDP ####[address] , [facility]83[facility])[phone] Director: Ray Arceo MD Platelets (Bld) [#/Vol] 309 10*3/uL Normal 138-453 [facility] Comment on above: Performed By: #### C P, MG, BH, CDP ####[address] , [facility]19([facility])[phone] Director: Ray Arceo MD RBC (Bld) [#/Vol] 5.12 10*6/uL High 3.95-5.11 [facility] Comment on above: Performed By: #### C P, MG, BH, CDP ####[address] , [facility]83[facility])[phone] Director: Ray Arceo MD WBC (Bld) [#/Vol] 10.3 10*3/uL Normal 3.5-11.3 [facility] Comment on above: Performed By: #### C P, MG, BH, CDP ####[address] , [facility]83[facility])[phone] Director: Ray Arceo MD Comp Metabolic Profon 2023 Albumin [Mass/Vol] 4.4 g/dL Normal 3.5-5.2 [facility] Comment on above: Performed By: #### C P, MG, BH, CDP ####[address] , [place] [id number] Lab Director: Ray Arceo MD Albumin/Glob Ratio 1.1 Normal 1.0-2.5 [facility] Comment on above: Performed By: #### C P, MG, BH, CDP ####[address] , [place] [id number] Lab Director: Ray Arceo MD Alkaline Phos 133 U/L High 35-104 [facility] Comment on above: Performed By: #### C P, MG, BH, CDP ####[address] , [place] [address] Lab Director: Ray Arceo MD ALT [Catalytic activity/Vol] 81 U/L High 5-33 [facility] Comment on above: Performed By: #### C P, MG, BH, CDP ####[address] , [place] [id number] lab Director: Ray Arceo MD Anion gap [Moles/Vol] 13 mmol/L Normal 9-17 [facility] Comment on above: Performed By: #### C P, MG, BH, CDP ####[address] , [place] [id number] Lab Director: Ray Arceo MD AST [Catalytic activity/Vol] 140 U/L High <32 [facility] Comment on above: Performed By: #### C P, MG, BH, CDP ####[address] , [place] [id number] Lab Director: Ray Arceo MD Bilirubin [Mass/Vol] 0.5 mg/dL Normal 0.3-1.2 [facility] Comment on above: Performed By: #### C P, MG, BH, CDP ####[address] , [place] [id number] Lab Director: Ray Arceo MD BUN/CRE Ratio 18 Normal 9-20 [facility] Comment on above: Performed By: #### C P, MG, BH, CDP ####[address] , [facility]83 Lab Director: Ray Arceo MD Calcium [Mass/Vol] 9.8 mg/dL Normal 8.6-10.4 [facility] Comment on above: Performed By: #### C P, MG, BH, CDP ####[facility] [place] , [facility]83 lab Director: Ray Arceo MD Chloride [Moles/Vol] 101 mmol/L Normal 98-107 [facility] Comment on above: Performed By: #### C P, MG, BH, CDP ####[facility] [place] [address] lab Director: Ray Arceo MD CO2 [Moles/Vol] 25 mmol/L Normal 20-[address] [facility] Comment on above: Performed By: #### C P, MG, BH, CDP ####[facility] [place] , [facility]83 Lab Director: Ray Arceo MD Creatinine [Mass/Vol] 0.6 mg/dL Normal 0.5-0.9 [facility] Comment on above: Performed By: #### C P, MG, BH, CDP ####[facility] [place] , [facility]83 lab Director: Ray Arceo MD GFR/1.73 sq M.predicted among non-blacks MDRD (S/P/Bld) [Vol rate/Area] mL/min/{1.73_m2} Normal >60 [facility] Comment on above: Result Comment: Thes e results are not intended for use in patients <18 years of age.eGFR results are calculated without a race factor using the 2020 CKD-EPI equation.Careful clinical correlation is recommended, particularly when comparing to results calculated using previous equations.The CKD-EPI equation is less accurate in patients with extremes of muscle mass, extra-renal metabolism of creatine, excessive creatine ingestion, or following therapy that affects renal tubular secretion. Performed By: #### C P, MG, BH, CDP ####[address] , [place] 947[address] Lab Director: Ray Arceo MD Glucose [Mass/Vol] 391 mg/dL High 70-99 [facility] Comment on above: Performed By: #### C P, MG, BH, CDP ####[address] , [place] [address] Lab Director: Ray Arceo MD Potassium [Moles/Vol] 4.8 mmol/L Normal 3.7-5.3 [facility] Comment on above: Performed By: #### C P, MG, BH, CDP ####[address] , [place] [id number] Lab Director: Ray Arceo MD Protein [Mass/Vol] 8.4 g/dL High 6.4-8.3 [facility] Comment on above: Performed By: #### C P, MG, BH, CDP ####[address] , [place] 452[address]83 Lab Director: Ray Arceo MD Sodium [Moles/Vol] 139 mmol/L Normal 135-144 [facility] Comment on above: Performed By: #### C P, MG, BH, CDP ####[address] , [place] 112[address] Lab Director: Ray Arceo MD Urea nitrogen [Mass/Vol] 11 mg/dL Normal 6-20 [facility] Comment on above: Performed By: #### C P, MG, BH, CDP ####[address] , [place] [id number] Lab Director: Ray Arceo MD Glucose, Whole Bloodon 04-06 Glucose [Mass/Vol] 234 mg/dL High 74-100 [facility] Glucose [Mass/Vol] 318 mg/dL High 74-100 [facility] Glucose [Mass/Vol] 430 mg/dL High 74-100 [facility] Lactic Acidon 04-06-2024 Lactate [Moles/Vol] 1.9 mmol/L Normal 0.5-2.2 [facility] Comment on above: Performed By: #### L ACTIC ####[facility] [place] , [place] [address] [facility] Director: Ray Arceo MD Lactate [Moles/Vol] 2.6 mmol/L High 0.5-2.2 [facility] Comment on above: Performed By: #### L ACTIC ####[facility] [place] , [place] [id number] lab Director: Ray Arceo MD Magnesiumon 04-06-2024 Magnesium [Mass/Vol] 2.0 mg/dL Normal 1.6-2.6 [facility] Comment on above: Performed By: #### C P, MG, BH, CDP ####[address] [place] [address] lab Director: Ray Arceo MD UA w/Reflex Cultureon 2023 Bilirubin, SemiQt,Ur Negative Normal NEG [facility] Comment on above: Performed By: #### U MICAO, UAX ####[address] , [place] [id number] lab Director: Ray Arceo MD Blood, Urine 2+ Abnormal NEG [facility] Comment on above: Performed By: #### U MICAO, UAX ####[address] , [place] [id number] lab Director: Ray Arceo MD Clarity (U) Clear Normal CLEAR [facility] Comment on above: Performed By: #### U MICAO, UAX ####[address] , [place] [id number] lab Director: Ray Arceo MD Color (U) Yellow Normal YEL [facility] Comment on above: Performed By: #### U MICAO, UAX ####[address] , [place] [id number] Lab Director: Ray Arceo MD Glucose Ql (U) 3+ mg/dL Abnormal NEG [facility] Comment on above: Performed By: #### U MICAO, UAX ####[address] [place] [address] Lab Director: Ray Arceo MD Ketones Ql (U) Negative Normal NEG [facility] Comment on above: Performed By: #### U MICAO, UAX ####[address] [place] [address] Lab Director: Ray Arceo MD Leukocyte esterase Test strip Ql (U) Negative Normal NEG [facility] Comment on above: Performed By: #### U MICAO, UAX ####[address] [place] [address] Lab Director: Ray Arceo MD Nitrite,Ur Negative Normal NEG [facility] Comment on above: Performed By: #### U MICAO, UAX ####[address] [place] [address] Lab Director: Ray Arceo MD PH,Ur 6.0 Normal 5.0-9.0 [facility] Comment on above: Performed By: #### U MICAO, UAX ####[address] [place] [address] Lab Director: Ray Arceo MD Protein Ql (U) Negative Normal NEG [facility] Comment on above: Performed By: #### U MICAO, UAX ####[address] [place] [address] Lab Director: Ray Arceo MD Spec. [place],Ur 1.020 Normal 1.010-1.020 [facility] Comment on above: Performed By: #### U MICAO, UAX ####[facility] [place] , [place] 201[address]83 [facility] Director: Ray Arceo MD Urobilinogen,Ur Normal Normal 0.0-1.[address] [facility] Comment on above: Performed By: #### U MICAO, UAX ####[facility] [place] , [place] 9[address]83 lab Director: Ray Arceo MD Urinalysis,Microon 4 Epithelial cells LM Ql (Urine sed) 2 TO 5 Normal 0-25 [facility] Comment on above: Performed By: #### U MICAO, UAX ####[facility] [place] [address] lab Director: Ray Arceo MD Urine RBC's 0 TO 2 Normal 0-2 [facility] Comment on above: Performed By: #### U MICAO, UAX ####[address] , [place] [id number] lab Director: Ray Arceo MD Urine WBC's None Normal 0-5 [facility] Comment on above: Performed By: #### U MICAO, UAX ####[address] [place] [address] lab Director: Ray Arceo MD Venous Blood Gaseson 024 Pk Test NOT APPLICABLE Normal [facility] Comment on above: Performed By: #### V BG ####[facility] [place] [address] lab Director: Ray Arceo MD Body Temp. 37.0 Normal [facility] Comment on above: Performed By: #### V BG ####[facility] [place] , [place] [id number] Lab Director: Ray Arceo MD FIO2 21 Normal [facility] Comment on above: Performed By: #### V BG ####[address] , [place] 908[address]83 Lab Director: Ray Arceo MD HCO3 (Bld) [Moles/Vol] 22.1 mmol/L Low 24.0-30.0 M [facility] Comment on above: Performed By: #### V BG ####[address] , [place] 9409383 Lab Director: Ray Arceo MD Negative Base Excess 2.6 mmol/L High 0.0-2.0 [facility] Comment on above: Performed By: #### V BG ####[address] , [place] [id number] Lab Director: Ray Arceo MD O2 Device/Flow/% ROOM AIR Normal [facility] Comment on above: Performed By: #### V BG ####[address] , [place] [id number] Lab Director: Ray Arceo MD Oxygen saturation in Blood 69.7 % Normal 60.0-85.0 [facility] Comment on above: Performed By: #### V BG ####[address] , [place] 815[address]83 Lab Director: Ray Arceo MD pCO2 38.2 mm Hg Low 39-55 [facility] Comment on above: Performed By: #### V BG ####[address] , [place] 2113583 Lab Director: Ray Arceo MD Pco2 Adj'd for Temp. 38.2 mmHg Low 39.0-55.0 [facility] Comment on above: Performed By: #### V BG ####[address] , [place] [id number] Lab Director: Ray Arceo MD pH (Bld) 7.380 [pH] Normal 7.32-7.42 [facility] Comment on above: Performed By: #### V BG ####[address] , [place] 38[address] Lab Director: Ray Arceo MD pH Adjst'd for Temp. 7.380 Normal 7.320-7.420 [facility] Comment on above: Performed By: #### V BG ####[address] [place] [address] lab Director: Ray Arceo MD pO2 37.0 mm Hg Normal 30.0-50.0 [facility] Comment on above: Performed By: #### V BG ####[address] , [place] [id number] Lab Director: Ray Arceo MD pO2 Adj'd for Temp. 37.0 mmHg Normal 30.0-50.0 [facility] Comment on above: Performed By: #### V BG ####[address] , [place] 3019[address] lab Director: Ray Arceo MD XR CHEST PORTABLEon 04-06-20 24 XR CHEST PORTABLE Normal [facility] ED Note-Physicianon 03-31-20 24 ED Note-Physician Chief Complaint pt c/o lower back pain - states she was here the other day for the same thing History of Present Illness Patient is a 28-year-old female who is presenting for evaluation for worsening back pain. She was here a couple days ago for same thing and was evaluated with an MRI of the lower back. She feels like the pain is still present has been slowly or worsening, she was having some numbness and tingling in her lower extremities feeling like they fell asleep, she can feel that she has to go the bathroom does have some urinary incontinence which was present the prior day as well. MRI again was completed and did show L4-L5 with disc degeneration with protrusion and no signs of cord compression, no signs of cauda equina or other significant compression. Plan was for discharge with pain medication and follow-up with Dr. Galindo which they do have scheduled upcoming. After the they called because the pain was worsening and was instructed to increase her Percocet dosing to 2 tabs which has helped some but now they have run out, so I would like additional pain medication at this time. Able to ambulate well with mild limp from pain. Review of Systems As reviewed in the HPI. All other systems reviewed are negative or normal. Physical Exam CONSTITUTIONAL: [well appearing in mild distress secondary to pain, morbidly obese] SKIN: [Warm, dry, and intact without rash] EYES: [extraocular movements are grossly intact, clear conjunctiva] HENT: [Normocephalic, atraumatic, moist mucus membranes] NECK: [no obvious swelling, normal range of motion] PULMONARY: [normal chest rise and fall, no respiratory distress or stridor CARDIOVASCULAR: [regular rate, distal extremities are warm and well perfused] GASTROINSTESTINAL: [nondistended, non-tender] GENITOURINARY: [deferred] NEUROLOGIC: [normal speech, moves all extremities, slight decreased sensation bilateral lower extremities, strength 5/5 all extremities. MUSCULOSKELETAL: [no gross deformities, atraumatic] PSYCHIATRIC: [normal mood and affect] Vitals & Measurements T: 36.4 ?C (Oral) HR: 92 (Peripheral) RR: 16 BP: 117/81 SpO2: 96% HT: 172.7 cm WT: 119.1 kg (Dosing) Additional Vitals No qualifying data available. Procedure No qualifying data available. ASA Documentation Medical Decision Making MEDICAL DECISION MAKING Number and Complexity of Problems Differential Diagnosis: _Strain or sprain, fracture, dislocation, nerve compression, cauda equina, UTI MDM Data External documents reviewed: _ My EKG interpretation: _ My CT interpretation: _ My X-ray interpretation: _ My Ultrasound interpretation: _ Decision rules/scores evaluated: _ Discussed with: _ Decision rules/scores evaluated: _ ? HEART Score: Not Completed ? PERC Rule: _ ? NEXUS C-spine Criteria: _ ? [place] Ankle Rule: _ ? [place] Knee Rule: _ ? Wells Criteria for DVT: _ ? Wells Criteria for PE: _ Discussed with: _ Treatment and Disposition ED Course: _Patient seen and evaluated. Examination findings as noted above. No new trauma or injuries, no significant change of symptoms, no indication for additional imaging at this time. Patient was given pain medication, muscle relaxant, antiemetics. Stable and cleared for discharge with plans for close neurosurgery follow-up. Shared decision making: _ Code status: _ Assessment/Plan 1. Lumbar back pain with radiculopathy affecting lower extremity 2. Paresthesias 3. Lumbar herniated disc Refresh vitals and sections below: Problem List/Past Medical History Ongoing ADD Anxiety Asthma Back pain Bladder disorder Depression HSV PCOS- polycystic ovary syndrome Historical Gestational diabetes Miscarriage MRSA Ovarian cyst Procedure/Surgical History Dilation and curettage [place] Tooth extraction (2009) Oopherectomy (06/2010) Tonsillectomy and adenoidectomy (02/2011) Eye Surgery (12/15/2011) Cystoscopy (07/22/2012) Diagnostic Laparoscopy (07/22/2012) (03/22/2016) Laparoscopic cholecystectomy (03/29/2017) (05/22/2020) Dilation and Curettage (03/20/2021) Vaginal Hysterectomy (11/12/2022) Medications Inpatient No active inpatient medications Home albuterol 90 mcg/inh inhalation aerosol, 2 puffs, Inhale, q6hr, PRN gabapentin 100 mg oral capsule, 60 EA, 0 Refill(s), take 1 capsule by mouth twice a day glipiZIDE 10 mg oral tablet, 20 mg= 2 tabs, Oral, BID hydrOXYzine hydrochloride 25 mg oral tablet, 25 mg= 1 tabs, Oral, TID, PRN hyoscyamine 0.125 mg sublingual tablet, 0.125 mg= 1 tabs, SL, q4hr, PRN lidocaine 5% topical film, 30 EA, 0 Refill(s), apply 1 patch TO THE AFFECTED AREA DAILY. LEAVE ON FOR 12 HOURS AND THEN OFF FOR 12 HOURS. metoclopramide 10 mg oral tablet, 10 mg= 1 tabs, Oral, QID, PRN omeprazole 40 mg oral delayed release capsule, 40 mg= 1 caps, Oral, BID oxyCODONE-acetamino phen 5 mg-325 mg oral tablet, 18 EA, 0 Refill(s), take 1 tablet by mouth every 4 hours if needed fo (more content not included)... Normal [facility] Neurosurgery Office/Clinic N oteon 06-27-2024 Neurosurgery Office/Clinic Note Chief Complaint Patient is being seen for back consult. History of Present Illness This is a pleasant 28 year old female seen in referral at the request of [facility] ED for lumbar disc protrusion. She was seen in the ED on 03/10/2024 with bilateral medial thigh numbness, and urinary incontinence. Lab work included blood glucose of 353, CRP 3.28 and WBC 9.5. MRI was completed which revealed an L4-5 central disc herniation and she was referred to us for further evaluation. She has had low back pain since late 2019, she was carrying her son upstairs felt like she pulled a muscle at the time. The pain progressed and she went to the ED at the time, was told she had a lumbar disc herniation. Since that time she has had intermittent exacerbations of low back pain, currently 7/10 in severity. She denies any pain radiating down the lower extremities, but she does have pain that radiates up the spine to the base of the neck. On 03/10/2024 she did develop what she describes as saddle numbness. The numbness is in the genital area, perineal area entire buttocks, medial and anterior thighs. She was sitting outside that day, had 3 separate episodes of urinary incontinence. Since that time the numbness has improved and she is voiding without any issues. With her previous exacerbations of pain she has also experienced saddle anesthesia and urinary incontinence. She has complained of intermittent weakness in the legs, has not fallen. No bowel issues. Of note, she has a history of MRSA and staph infections. She has been seen Dr. Santos for a recent abdominal abscess with staph infection, was on antibiotics and that resolved, then developed infection in the left axillary area, restarted on antibiotics and that is also beginning to clear up. Back: Intermittent chronic low back pain since 2019, current exacerbation x 1 week, 7/10 in severity Legs: Numbness B/L buttocks, hamstrings, medial thighs, perineal area, improving. Subjective weakness Care team: Dr. Wells, PCP Dr. 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 Tobacco use 1/2 PPD, social alcohol, + hemp Medications: As listed Surgical history: No prior spine surgery Family history: As listed Imaging: MRI lumbar 03/10/2024: L4-5 DDD, central disc herniation with flattening of the anterior thecal sac, with facet degeneration. Neural foramen and lateral recesses are patent. No disc herniations or spinal canal or foraminal narrowing at the other levels. Review of Systems General Adult ROS Fatigue: Yes Weakness: Yes Cardiovascular Chest pain/pressure: No EENMT Hearing loss: No Vision Changes: No Gastrointestinal Abdominal pain: No Constipation: No Diarrhea: No Heartburn: Yes Nausea: No Vomiting: No Genitourinary Frequency: Yes Urgency: Yes Urinary Incontinence: Yes Hematologic/Lymphat ic Musculoskeletal Back pain: Yes Other Musculoskeletal: Yes Neurological Numbness: Yes Psychiatric Respiratory Cough: Yes Shortness of breath: No Skin Rash: No Physical Exam Vitals & Measurements HR: 72 (Peripheral) BP: 132/78 HT: 172.5 cm WT: 116.5 kg WT: 116.5 kg (Dosing) BMI: 39.15 Additional Vitals BP Position/Location: Sitting, Left arm General: Alert and oriented, well nourished, no acute distress. Eye: Normal conjunctiva, no scleral icterus. HENT: Normocephalic, atraumatic, oral mucosa pink and moist. Neck: Supple. Pulmonary: Clear to auscultation, non-labored respiration. Cardiovascular: Normal rate, regular rhythm, no murmur, no edema. Abdomen: Soft, nontender Skin: Normal temperature and texture. Psychiatric: Appropriate judgment and insight, appropriate mood and affect. NEURO EXAM: Pupils are equal bilaterally and reactive to light. No eye deviation at primary gaze. Extraocular movements are full. Face is symmetric, facial sensation intact, tongue midline Hearing is intact to finger rub Motor: Upper Extremity Strength: 5/5 Lower Extremity Strength: 5/5 Reflexes: Reflexes of the upper extremities are 2+ biceps Reflexes of the lower extremities are 1+ patella, absent Achilles Baker?s sign is negative. No clonus. Sensation: Grossly intact to light touch throughout except decreased in the bilateral anteromedial and lateral thighs Gait: Posture is normal. Gait is steady. Base and stride normal. Able to walk on toes and heels Musculoskeletal: Spine: no visible deformities or step offs Tender to palpation midline lumbar spine Straight leg raising positive at 30 degrees B/L Lumbar flexion and extension intact, flexion elicits back pain Assessment/Plan Assessment: 1. Intermittent low back (more content not included)... Normal [facility] Provider Letteron 03-19-2024 Provider Letter Yossi Wells MD [address] [place] [address] Re: Dorota Swanson Date of Visit: 03/19/2024 Dear Yossi Wells MD, Thank you for allowing me to contribute to the care of your patient: Sky Dorota AlDanni Attached is my office note where you will find my assessment and recommendations from our encounter. My office?s contact information: [facility] [address], [phone] Let me know if you have any questions or concerns. Sincerely, LUZ Muhammad Providers: The following document(s) were included in the letter: March 19, 2024 12:38:32 EDT - (03/19/2024) Neurosurgery Office Visit Note Normal [facility] ED Clinical Summaryon 2023 ED Clinical Summary [address] [address] ED Clinical Summary Person Information Name: Dorota Swanson [facility] Age: 28 Years : 1995 Sex: Female PCP: Russell GREWAL, Yossi Bustillo Marital Status: Phone: Race: White Ethnicity: Not or Language: Central African Visit Reason: Back pain; Back Pain Acuity: 3 Enc Type: Emergency Med Service: Emergency Medicine Arrival: 03/15/2024 02:14:36 Discharge: 03/15/2024 05:06:00 LOS: 000 02:52 Checkin: 03/15/2024 02:14:36 Checkout: 03/15/2024 05:06:00 Dispo Type: Home or Self Care Address: [address] [place] [phone] Provider Notes: Diagnosis: 1:Lumbar back pain with radiculopathy affecting lower extremity; 2:Paresthesias; 3:Lumbar herniated disc Problems No Problems Documented Smoking Status: Smoking Status 5-9 cigarettes (between 1/4 to 1/2 pack)/day in last 30 days Functional Status: Sensory Deficits: History of Falls: Mobility Assistance Prior to Admission: ADLs: Current Level of Assistance for Self-Care/Mobility: Cognitive Status: Allergies Latex (Rash) penicillin (Hives) Pyridium (Anxiety) Toradol (Shortness of breath) egg-containing compound (Nausea) Laboratory or Other Results This Visit (last charted value for your 03/15/2024 visit) No Laboratory or Other Results This Visit Measurements: Height: Weight: 119.1 kg Blood Pressure: /81 mmHg BMI: Procedures No Procedures Documented Immunizations No Immunizations Documented This Visit Final Med List: New Medications [id number], [address], [place] [id number], [phone] oxyCODONE-acetamino phen (Percocet 5 mg-325 mg oral tablet) 1 Tabs Oral (given by mouth) every 4 hours as needed as needed for pain for 3 Days. Refills: 0. Last Dose: Medications That Were Updated - Follow Current Instructions [facility] #[id number], [address], [place] [id number], [phone] Current ondansetron (Zofran ODT 4 mg oral tablet, disintegrating) 1 Tabs Oral (given by mouth) every 8 hours as needed as needed for nausea/vomiting. Refills: 0. Last Dose: Current tiZANidine (tiZANidine 4 mg oral tablet) 1 Tabs Oral (given by mouth) every 8 hours as needed muscle spasms. Refills: 0. Last Dose: Other Medications Current ondansetron (Zofran ODT 4 mg oral tablet, disintegrating) 1 Tabs Oral (given by mouth) 3 times a day as needed as needed for nausea/vomiting for 3 Days. Refills: 0. Last Dose: Current tiZANidine (tiZANidine 4 mg oral tablet) 1 Tabs Oral (given by mouth) 3 times a day as needed muscle spasms. Last Dose: Medications that have not changed Other Medications albuterol (albuterol 90 mcg/inh inhalation aerosol) 2 Puffs Inhale (breathe in) every 6 hours as needed as needed for wheezing. Last Dose: dulaglutide (Trulicity Pen 1.5 mg/0.5 mL subcutaneous solution) 0.5 Milliliter Subcutaneous (under the skin) Every Saturday. Last Dose: glipiZIDE (glipiZIDE 10 mg oral tablet) 2 Tabs Oral (given by mouth) 2 times a day. Last Dose: hydrOXYzine (hydrOXYzine hydrochloride 25 mg oral tablet) 1 Tabs Oral (given by mouth) 3 times a day as needed as needed for anxiety. Last Dose: hyoscyamine (hyoscyamine 0.125 mg sublingual tablet) 1 Tabs Sublingual (dissolve under the tongue) every 4 hours as needed cramping. Last Dose: metoclopramide (metoclopramide 10 mg oral tablet) 1 Tabs Oral (given by mouth) 4 times a day as needed nausea/vomiting. Last Dose: omeprazole (omeprazole 40 mg oral delayed release capsule) 1 Capsules Oral (given by mouth) 2 times a day. Last Dose: sertraline (Zoloft 25 mg oral tablet) 1 Tabs Oral (given by mouth) once a day (at bedtime). Last Dose: [facility] #[id number], [address] [place], [place] [id number], [phone] ondansetron (Zofran ODT 4 mg oral tablet, disintegrating) 1 Tabs Oral (given by mouth) every 8 hours as needed as needed for nausea/vomiting. Refills: 0. oxyCODONE-acetamino phen (Percocet 5 mg-325 mg oral tablet) 1 Tabs Oral (given by mouth) every 4 hours as needed as needed for pain for 3 Days. Refills: 0. tiZANidine (tiZANidine 4 mg oral tablet) 1 Tabs Oral (given by mouth) every 8 hours as needed muscle spasms. Refills: 0. Other Medications albuterol (albuterol 90 mcg/inh inhalation aerosol) 2 Puffs Inhale (breathe in) every 6 hours as needed as needed for wheezing. dulaglutide (Trulicity Pen 1.5 mg/0.5 mL subcutaneous solution) 0.5 Milliliter Subcutaneous (under the skin) Every Saturday. glipiZIDE (glipiZIDE 10 mg oral tablet) 2 Tabs Oral (given by mouth) 2 times a day. hydrOXYzine (hydrOXYzine hydrochloride 25 mg oral table (more content not included)... Normal [facility] ED Clinical Summaryon 2023 ED Clinical Summary [address] [address] ED Clinical Summary Person Information Name: Dorota Swanson [facility] Age: 28 Years : 1995 Sex: Female PCP: Russell GREWAL, Yossi Bustillo Marital Status: Phone: Race: White Ethnicity: Not or Language: [place] Visit Reason: Incontinence; Pain in back; back pain Acuity: 3 Enc Type: Emergency Med Service: Emergency Medicine Arrival: 03/10/2024 19:03:42 Discharge: 03/11/2024 00:02:00 LOS: 000 04:59 Checkin: 03/10/2024 19:03:42 Checkout: 03/11/2024 00:02:00 Dispo Type: Home or Self Care Address: [address] [place] [phone] Provider Notes: History of Present Illness This is a pleasant 28-year-old female with a history of lumbar disc disease, she said L4-L5, L5-S1. ?She has had MRIs. ?At times she does have intermittent numbness and in her leg. ?With some weakness. ?She can walk she can ambulate. ?But today she says she felt different she has described numbness in the?inner thigh region bilaterally, and 1 episode of urinary incontinence, she has had at times intermittent urinary incontinence but this did concern her. ?Still feels like it is abnormal like she feels like she sat on something and its made it fall asleep in her?groin area. ?No stool incontinence, no fever no chills she does have diabetes ? She has had MRIs before?and she has seen a specialist for her back.? She has had MRIs at?[facility] she states. Review of Systems Pertinent positive and negative ROS?as above in HPI.? Physical Exam Constitutional: This is a well developed, well nourished patient who is awake, alert and in no acute distress Head/Face: Normocephalic, atraumatic Respiratory: the patient does not display signs of respiratory distress, respirations: normal Skin: appearance: appears normal Neuro: Mentation: appropriate for stated age, no acute changes, motor: 5/5 dorsiflexion plantarflexion of the great toes equal bilaterally, on light touch palpation she said there is abnormality feels bilateral legs, in the upper portion she feels it feels decreased light touch sensation however it is equal inner and outer thighs noted.? She did have a positive straight leg raise on the right about 45 degrees. Psych: Behavior / mood is appropriate for age. ? Diagnosis: 1:Low back pain; 2:Numbness; 3:Lumbar disc herniation; 4:Diabetes mellitus Problems No Problems Documented Smoking Status: Smoking Status 5-9 cigarettes (between 1/4 to 1/2 pack)/day in last 30 days Functional Status: Sensory Deficits: History of Falls: Mobility Assistance Prior to Admission: ADLs: Current Level of Assistance for Self-Care/Mobility: Cognitive Status: Allergies Latex (Rash) penicillin (Hives) Pyridium (Anxiety) Toradol (Shortness of breath) egg-containing compound (Nausea) Laboratory or Other Results This Visit (last charted value for your 03/10/2024 visit) Hematology 03/10/2024 8:51 PM WBC: 9.5 x10 RBC: 4.51 x10 Neutro Auto: 53.2 % -- Normal range between ( 47.2 and 70.8 ) Lymph Auto: 40.0 % -- Normal range between ( 27.2 and 40.8 ) Tillman Auto: 3.6 % -- Normal range between ( 3.7 and 11.9 ) Eos Auto: 1.2 % -- Normal range between ( 0.0 and 5.4 ) Basophil Auto: 2.0 % -- Normal range between ( 0.0 and 1.5 ) Baso Absolute: 0.2 x10 MCV: 88.9 fL -- Normal range between ( 80.0 and 100.0 ) MCHC: 34.4 % -- Normal range between ( 31.0 and 37.0 ) Lymph Absolute: 3.8 x10 Hct: 40.1 % -- Normal range between ( 36.0 and 46.0 ) Tillman Absolute: 0.3 x10 MCH: 30.6 pg -- Normal range between ( 27.0 and 35.0 ) Neutro Absolute: 5.0 x10 Hgb: 13.8 g/dL -- Normal range between ( 12.0 and 16.0 ) Mean Platelet Volume: 9.0 fL -- Normal range between ( 6.7 and 10.6 ) Platelet: 284 x10 Eos Absolute: 0.1 x10 RDW: 13.9 % -- Normal range between ( 11.6 and 14.8 ) Chemistry 03/10/2024 8:51 PM Creatinine Lvl: 0.69 mg/dL -- Normal range between ( 0.44 and 1.03 ) BUN: 10 mg/dL -- Normal range between ( 8 and 26 ) Glucose Lvl: 353 mg/dL -- Normal range between ( 70 and 99 ) Potassium Lvl: 4.3 mmol/L -- Normal range between ( 3.4 and 4.8 ) CRP: 3.28 mg/dL -- Normal range between ( 0.00 and 0.75 ) AST: 82 IU/L -- Normal range between ( 15 and 41 ) ALT: 68 IU/L -- Normal range between ( 14 and 54 ) Sodium Lvl: 133 mmol/L -- Normal range between ( 133 and 142 ) Calcium Lvl: 9.2 mg/dL -- Normal range between ( 8.5 and 10.3 ) Albumin Lvl: 3.9 g/dL -- Normal range between ( 3.2 and 4.9 ) Total Protein: 8.1 g/dL -- Normal range between ( 6.5 and 8.1 ) Bili Total: 0.5 mg/dL -- Normal range between ( 0.3 and 1.2 ) Alk Phos: 100 IU/L -- Normal range between ( 32 and 91 ) Chloride: 97 mmol/L -- Normal range between ( 98 and 110 ) CO2: 23 mmol/L -- Normal range between ( 22 and 32 ) Anion Gap: 13 -- Normal range between ( 4 and 12 ) Estimated GFR: >60 (more content not included)... Normal [facility] .eGFRon 03-10-2024 GFR/1.73 sq M.predicted MDRD (S/P/Bld) [Vol rate/Area] mL/min/{1.73_m2} Normal >=60 [facility] Comment on above: Result Comment: [facility] have implemented the eGFR calculation approach that does not have a coefficient for race and that conforms to the NKF-ASN Task Force Recommendations. Stages of Chronic Kidney Disease GFR Stage 3a Mild to moderate loss of kidney function 59 to 45 Stage 3b Moderate to severe loss of kidney function 44 to 33 Stage 4 Severe loss of kidney function 29 to 15 Stage 5 Kidney failure Less than 15 GFR calculated using the CKD-Epi Creatinine Equation (2020): eGFR = 142 X min(SCr/?, 1)? X max(SCr /?, 1)-1.200 X 0.9938Age X 1.012 [if female] Abbreviations/Units: eGFR (estimated glomerular filtration rate) = mL/min/1.73 m2 SCr (standardized serum creatinine) = mg/dL ? = 0.7 (females) or 0.9 (males) ? = -0.241 (females) or -0.302 (males) min = indicates the minimum of SCr/? or 1 max = indicates the maximum of SCr/? or 1 Age = years Performed By: #### E GFR ####[id number] [address] CBC w/ Diffon 03-10-2024 Erythrocyte distribution width (RBC) [Ratio] 13.9 % Normal 11.6-14.8 [facility] Comment on above: Performed By: #### C BC ####[address] [address] Hematocrit (Bld) [Volume fraction] 40.1 % Normal 36.0-46.0 [facility] Comment on above: Performed By: #### C BC ####[address] [address] Hemoglobin (Bld) [Mass/Vol] 13.8 g/dL Normal 12.0-16.0 [facility] Comment on above: Performed By: #### C BC ####[address] [address] MCH (RBC) [Entitic mass] 30.6 pg Normal 27.0-35.0 [facility] Comment on above: Performed By: #### C BC ####[address] [address] MCHC 34.4 % Normal 31.0-37.0 [facility] Comment on above: Performed By: #### C BC ####[address] [address] MCV (RBC) [Entitic vol] 88.9 fL Normal 80.0-100.0 [place] Comment on above: Performed By: #### C BC ####[address] [address] Platelet 284 x10*3/mcL Normal 150-450 [facility] Comment on above: Performed By: #### C BC ####[address] [address] Platelet mean volume (Bld) [Entitic vol] 9.0 fL Normal 6.7-10.6 [facility] Comment on above: Performed By: #### C BC ####[address] [address] RBC 4.51 x10*6/mcL Normal 3.80-5.20 [facility] Comment on above: Performed By: #### C BC ####[address] [address] WBC 9.5 x10*3/mcL Normal 4.5-11.0 [facility] Comment on above: Performed By: #### C BC ####[address] [address] CMPon 03-10-2024 Albumin [Mass/Vol] 3.9 g/dL Normal 3.2-4.9 [facility] Comment on above: Performed By: #### C OMP ####[address] [address] Albumin/Globulin [Mass ratio] 0.9 {ratio} Low 1.1-2.2 [facility] Comment on above: Performed By: #### C OMP ####[address] [address] Alk Phos 100 IU/L High 32-91 [facility] Comment on above: Performed By: #### C OMP ####[address] [address] ALT [Catalytic activity/Vol] 68 U/L High 14-54 [facility] Comment on above: Performed By: #### C OMP ####[address] [address] Anion gap [Moles/Vol] 13 mmol/L High 4-[address] [facility] Comment on above: Performed By: #### C OMP ####[address] [address] AST [Catalytic activity/Vol] 82 U/L High 15-41 [facility] Comment on above: Performed By: #### C OMP ####[address] [address] Bili Total 0.5 mg/dL Normal 0.3-1.2 [facility] Comment on above: Performed By: #### C OMP ####[address] [address] Calcium [Mass/Vol] 9.2 mg/dL Normal 8.5-10.3 [facility] Comment on above: Performed By: #### C OMP ####[address] [address] Chloride [Moles/Vol] 97 mmol/L Low 98-110 [facility] Comment on above: Performed By: #### C OMP ####[address] [address] CO2 [Moles/Vol] 23 mmol/L Normal 22-32 [facility] Comment on above: Performed By: #### C OMP ####[address] [address] Creatinine [Mass/Vol] 0.69 mg/dL Normal 0.44-1.[address] [facility] Comment on above: Performed By: #### C OMP ####[address] [address] Glucose [Mass/Vol] 353 mg/dL High 70-99 [facility] Comment on above: Performed By: #### C OMP ####[address] [address] Potassium [Moles/Vol] 4.3 mmol/L Normal 3.4-4.[address] [facility] Comment on above: Performed By: #### C OMP ####[address] [address] Protein [Mass/Vol] 8.1 g/dL Normal 6.5-8.1 [facility] Comment on above: Performed By: #### C OMP ####[address] [address] Sodium [Moles/Vol] 133 mmol/L Normal 133-142 [facility] Comment on above: Performed By: #### C OMP ####[address] [address] Urea nitrogen [Mass/Vol] 10 mg/dL Normal 8-26 [facility] Comment on above: Performed By: #### C OMP ####[address] [address] Urea nitrogen/Creatinine [Mass ratio] 14.5 mg/mg Normal 10.0-20.0 [facility] Comment on above: Performed By: #### C OMP ####[address] [address] CRPon 03-10-2024 CRP 3.28 mg/dL High 0.00-0.75 [facility] Comment on above: Result Comment: CRP measurement is useful for assessment of non-specific INFLAMMATORY RESPONSE to infection or injury AND is a sensitive MARKER of ACUTE INFLAMMATION including CARDIAC RISK ASSESSMENT. CARDIAC patients with elevated CRP are POTENTIALLY at a HIGHER RISK OF FUTURE CARDIAC EVENTS. Performed By: #### C RP ####[address] [address] Diff Autoon 03-10-2024 Baso Absolute 0.2 x10*3/mcL Normal 0.0-0.2 [facility] Comment on above: Performed By: #### . Automated Diff ####[address] [address] Basophils/100 WBC (Bld) 2.0 % High 0.0-1.5 [facility] Comment on above: Performed By: #### . Automated Diff ####[address] [address] Eos Absolute 0.1 x10*3/mcL Normal 0.0-0.4 [facility] Comment on above: Performed By: #### . Automated Diff ####[address] [address] Eosinophils/100 WBC (Bld) 1.2 % Normal 0.0-5.4 [facility] Comment on above: Performed By: #### . Automated Diff ####[address] [address] Lymph Absolute 3.8 x10*3/mcL Normal 1.0-4.[address] [facility] Comment on above: Performed By: #### . Automated Diff ####[address] [address] Lymphocytes/100 WBC (Bld) 40.0 % Normal 27.2-40.8 [facility] Comment on above: Performed By: #### . Automated Diff ####[address] [address] Tillman Absolute 0.3 x10*3/mcL Normal 0.1-1.1 [facility] Comment on above: Performed By: #### . Automated Diff ####[address] [address] Monocytes/100 WBC (Bld) 3.6 % Low 3.7-11.9 [facility] Comment on above: Performed By: #### . Automated Diff ####[address] [address] Neutro Absolute 5.0 x10*3/mcL Normal 1.8-7.7 [facility] Comment on above: Performed By: #### . Automated Diff ####[address] [address] Neutro Auto 53.2 % Normal 47.2-70.8 [facility] Comment on above: Performed By: #### . Automated Diff ####[address] [address] ED Note-Physicianon 03-10-20 ED Note-Physician Chief Complaint pt has two slipped disks, yesterday started having shooting pain and numbness in buttocks area, urinated onself a small amount this afternoon History of Present Illness This is a pleasant 28-year-old female with a history of lumbar disc disease, she said L4-L5, L5-S1. She has had MRIs. At times she does have intermittent numbness and in her leg. With some weakness. She can walk she can ambulate. But today she says she felt different she has described numbness in the inner thigh region bilaterally, and 1 episode of urinary incontinence, she has had at times intermittent urinary incontinence but this did concern her. Still feels like it is abnormal like she feels like she sat on something and its made it fall asleep in her groin area. No stool incontinence, no fever no chills she does have diabetes She has had MRIs before and she has seen a specialist for her back. She has had MRIs at [facility] she states. Review of Systems Pertinent positive and negative ROS as above in HPI. Physical Exam Constitutional: This is a well developed, well nourished patient who is awake, alert and in no acute distress Head/Face: Normocephalic, atraumatic Respiratory: the patient does not display signs of respiratory distress, respirations: normal Skin: appearance: appears normal Neuro: Mentation: appropriate for stated age, no acute changes, motor: 5/5 dorsiflexion plantarflexion of the great toes equal bilaterally, on light touch palpation she said there is abnormality feels bilateral legs, in the upper portion she feels it feels decreased light touch sensation however it is equal inner and outer thighs noted. She did have a positive straight leg raise on the right about 45 degrees. Psych: Behavior / mood is appropriate for age. Vitals & Measurements T: 36.7 ?C (Oral) HR: 96 (Peripheral) RR: 15 BP: 130/87 SpO2: 97% HT: 172.1 cm WT: 118.1 kg (Dosing) Additional Vitals No qualifying data available. Procedure No qualifying data available. ASA Documentation Medical Decision Making This report has been created using voice recognition software. It may contain minor errors which are inherent in voice recognition technology. My Initial Medical Decision Making: After my bedside initial evaluation of the patient, based on history and physical examination, I believe that this may represent acute back pain. I have also considered myofascial strain, muscle spasm, fracture as potential differential diagnosis, among others, for this patient. I would like to order medication, pain relief which would help further evaluation for this work up. Patient does have questionable history with the paresthesias and episode of urinary incontinence, there is no findings of acute weakness on examination, given history of diabetes will order lab work CRP and a CBC in addition to an MRI of the lumbar spine. There are no imaging done in our facility here that I can find Data Reviewed Tests: ordered and independently reviewed Decide to obtain previous medical records or to obtain history from someone other than the patient: Reviewed [facility] EMR to see if recent visits or hospitalizations. Review and summarized past medical records if pertinent and available in [facility]: Independent review of records: Data Interpretation: My independent review and interpretation of lab. Clinically relevant interpretation: No leukocytosis no shift, chemistry panel revealed glucose of 353, minimally elevated liver enzymes baseline, mildly elevated CRP at 3.28. MRI report reviewed L4-L5 disc space narrowing, there is a central protrusion disc herniation with flattening the anterior aspect of thecal sac, L5-S1 no disc herniation, lower thoracic is without process. The spinal cord the distal cord and the conus have a normal appearance with no compression, no edema, there is no epidural abscess or fluid collection noted. ED Course / Patient Re-evaluation: I have reassessed the patient at bedside. The patient does appear comfortable at this time. They have received a dose of morphine, I did also order a dose of Valium to premedicate before MRI as she has claustrophobia and has required medication like this before Patient is: Resting comfortably After this reassessment I will: Assess after labs and MRI have resulted 2203 patient is at this MRI at this time. She has been improving. Back from MRI, pain did return Elsa remedicated with morphine, at this point there is no acute process of the spinal cord requiring emergent neurosurgical decompression, she does have disc herniation, with known history of herniation. I would like to prescribe him some additional pain control for her at home she has muscle relaxant and NSAIDs, will add a short course of narcotic pain control in addition I will refer to neurosurgery outpatient Discharge MDM Patient presented for initial chief complaint. After evaluation and workup, patient will be treated as an outpatient as supported by history, exam and inves (more content not included)... Normal [facility] MRI Spine Lumbar w/o Contras ton 03-10-2024 MRI Spine Lumbar w/o Contrast INDICATION: 28 years old; Female . Symptom/Location/Du ration: Chronic low back pain.), Rule out cauda equina TECHNIQUE: Multiplanar MR imaging of the lumbar spine was performed. IV contrast: None. Comparison: Lumbar CT dated 04/23/2022. Motion artifacts degrade the axial series. FINDINGS: POSTOPERATIVE CHANGES: None. ALIGNMENT: Mild loss of normal lumbar lordosis. COMPRESSION FRACTURES: No fracture or vertebral body collapse. No bone marrow edema. No bony displacement. No pedicle edema which would indicate pedicle stress. PREVERTEBRAL SOFT TISSUES: Normal. SPINAL CORD: Distal cord and conus have a normal appearance. No compression or expansion. No edema. Disc levels: T12-L1: No disc herniation. No spinal canal or foraminal narrowing. L1-L2: No disc herniation. No spinal canal or foraminal narrowing. L2-L3: No disc herniation. No spinal canal or foraminal narrowing. L3-L4: No disc herniation. No spinal canal or foraminal narrowing. L4-L5: Disc degeneration with disc space narrowing. Allowing for artifacts, there is vertebral endplate degeneration. Facet degeneration is present. A central protrusion type disc herniation is noted. There is flattening of the anterior aspect of the thecal sac. Neural foramina and lateral recesses are patent. L5-S1: No disc herniation. No spinal canal or foraminal narrowing. LOWER THORACIC SPINE: At T11-T12, disc degeneration is seen. There is disc space narrowing with anterior osteophyte formation. The central canal and neural foramina are patent. OTHER: Mild posterior paraspinal muscle atrophy. Psoas muscles intact. No drainable fluid collections. IMPRESSION: 1. The examination, particularly the axial images are degraded by patient motion. 2. Degenerative change at L4-L5 with a central protrusion type disc herniation. The central canal, neural foramina, lateral recesses are patent. Facet degeneration is also noted. Please see the detailed discussion of the individual levels in the body of this report. Final Dictated by: Ortiz Baugh MD Dictated DT/TM: 03/10/2024 10:35 pm Signed by: Ortiz Baugh MD Signed (Electronic Signature): 03/10/2024 10:40 pm (If Report Is Signed, Electronically Signed in Other Vendor System) [facility] Surgery Office/Clinic Noteon 02-26-2024 Surgery Office/Clinic Note Chief Complaint Patient presents for 1 WK OV FU. History of Present Illness 28 year old female, no current PCP. Patient was last seen 02/12/2024 for c/o abdominal abscess w/ evidence of STAPH infection. Pt was advised to start Bactrim DS BID x 10 days and continue dressing changes as needed. Here for recheck. The abdominal wall lesion has essentially healed per patient. However, she has developed painful nodule in the left axilla without any drainage. She denies any other associated symptoms. She has finished her antibiotic a while ago. Assessment/Plan (02/12/2024) 1. Abscess of skin or subcutaneous tissue There is no clinical evidence of fluid collection at this point. As mentioned in HPI, per patient's , she had large amount of drainage at 1 point and since then she's had minimal drainage. There is no immediate indication for an incision and drainage. However, since per patient and her 's assessment the lesion has not improved much we will stop her doxycycline and start her on Bactrim DS. Will see her back in office in 1 week for reevaluation. They were instructed to call us or go to emergency room if the condition worsens within next week. Ordered: sulfamethoxazole-tr imethoprim, 1 tabs, Oral, BID, X 10 days, # 20 tabs, 0 Refill(s), 02/22/24 9:35:00 EDT, Pharmacy: [facility] #[id number] [1] Review of Systems A complete 12 point review of system was performed. Other than what were mentioned in the HPI and past medical history patient denied having any other medical problems. Physical Exam Vitals & Measurements BP: 138/90 HT: 172.7 cm WT: 118 kg WT: 118 kg (Dosing) BMI: 39.56 General: well nourished, no acute distress. Eye: normal conjunctiva HEENT: Normocephalic, no scleral icterus Neck: supple Lungs: Non-labored respiration Heart: normal rate, regular rhythm. Abdomen: soft, normal bowel sounds, nondistended, nontender. Musculoskeletal: normal range of motion and strength, no tenderness or swelling. Skin: skin is warm, dry and pink. The right lower quadrant skin lesion is essentially healed without any drainage. Has minimal skin hyperpigmentation. In the the left axilla there is firm 3 x 2.5 cm subcutaneous induration with overlying cellulitis. No drainage. No fluctuation. Neurologic: awake, alert, and oriented x3 Psychiatric: cooperative, appropriate mood and affect Additional Vitals BP Position/Location: Sitting, Right arm Assessment/Plan 1. Abscess of skin or subcutaneous tissue The abdominal wall skin abscess/cellulitis has completely resolved. No further intervention indicated for that. However, near-total left axillary area with cellulitis and subcutaneous induration consistent with new infection. Will restart the patient on antibiotic. She was instructed to return to our office or go to emergency department if her condition worsens or if she has significant amount of drainage from the area. She stated understanding. Ordered: sulfamethoxazole-tr imethoprim, 1 tabs, Oral, BID, X 10 days, # 20 tabs, 0 Refill(s), 03/07/24 14:07:00 EDT, [facility]: [facility][id number] -- Portions of this chart may have been created with voice recognition software. Occasional wrong word or sound alike substitutions may have occurred due to inherent limitations of voice recognition software. Please read the chart carefully and recognize, using context, where these substitutions have occurred. Medical Decision Making Chronic conditions NOT treated during this visit that affected my overall medical decision making: [] Treatment plans discussed but not opted for at this time: [] Prescribed medication that requires intensive monitoring for toxicity: [] I have reviewed the patient?s medication list for medication interactions/contra indications and/or for upcoming procedures: [yes or no] Time Spent with the Patient I have personally spent []minutes on this date, directly related to today's patient visit, including pre and post visit work, for this date of service. Time listed does not include time spent on separately billable services. Problem List/Past Medical History Ongoing ADD Anxiety Asthma Back pain Bladder disorder Depression HSV PCOS- polycystic ovary syndrome Historical Gestational diabetes Miscarriage MRSA Ovarian cyst Procedure/Surgical History Dilation and curettage Conover Tooth extraction (2009) Oopherectomy (06/2010) Tonsillectomy and adenoidectomy (02/2011) Eye Surgery (12/15/2011) Cystoscopy (07/22/2012) Diagnostic Laparoscopy (07/22/2012) (03/22/2016) Laparoscopic cholecystectomy (03/29/2017) (05/22/2020) Dilation and Curettage (03/20/2021) Vaginal Hysterectomy (11/12/2022) Medications albuterol 90 mcg/inh inhalation aerosol, 2 puffs, Inhale, q6hr, PRN Bactrim DS 800 mg-160 mg oral tablet, 1 tabs, Oral, BID glipiZIDE 10 mg oral tablet, 20 mg= 2 tabs, Oral, BID hydrOXYzine hydrochloride 25 mg oral tablet, 25 mg= 1 tabs, Oral, TID, PRN h (more content not included)... [facility] Surgery Office/Clinic Noteon 02-12-2024 Surgery Office/Clinic Note Chief Complaint Patient presents for ED follow up:abdominal wall abscess. History of Present Illness 28 year old female, no current PCP. Patient presents with c/o abdominal pain after presenting to the ED on 02/07/2024. Patient states area was red and warm to the touch. 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 Patient was discharged with Doxycycline 100mg BID x 10 days. Wound culture was obtained. Here for recheck. Light Growth of Normal skin madison isolated with . Heavy Growth of Staphylococcus lugdunensis isolated The lesion had started about 2 days prior the presentation to the ED. She has hx of MRSA in the past on her incision. Since the discharge from the ED, she had a large drainage after dressing changes by the . It still has some drainage but not as much. She has no fevers, chills or any other associated sx's. She has been taking her Doxycycline. They feel it might be somewhat worse. Review of Systems A complete 12 point review of system was performed. Other than what were mentioned in the HPI and past medical history patient denied having any other medical problems. Physical Exam Vitals & Measurements HR: 96 (Peripheral) BP: 129/82 HT: 172.7 cm WT: 118 kg (Estimated) WT: 118 kg (Dosing) BMI: 39.56 General: well nourished, no acute distress. Eye: normal conjunctiva HEENT: Normocephalic, no scleral icterus Neck: supple, non-tender, no JVD, no lymphadenopathy Lungs: Clear to auscultation, non-labored respiration Heart: normal rate, regular rhythm, no murmur, gallop or edema. Abdomen: soft, non-tender, non-distended, normal bowel sounds, no masses. RLQ an area of induration and scant drainage measuring 3 x 2.5 cm. No fluctuation. central opening with no drainage upon manipulation of the area. Musculoskeletal: normal range of motion and strength, no tenderness or swelling. Skin: skin is warm, dry and pink Neurologic: awake, alert, and oriented x3 Psychiatric: cooperative, appropriate mood and affect Additional Vitals BP Position/Location: Sitting, Right arm Assessment/Plan 1. Abscess of skin or subcutaneous tissue There is no clinical evidence of fluid collection at this point. As mentioned in HPI, per patient's , she had large amount of drainage at 1 point and since then she's had minimal drainage. There is no immediate indication for an incision and drainage. However, since per patient and her 's assessment the lesion has not improved much we will stop her doxycycline and start her on Bactrim DS. Will see her back in office in 1 week for reevaluation. They were instructed to call us or go to emergency room if the condition worsens within next week. Ordered: sulfamethoxazole-tr imethoprim, 1 tabs, Oral, BID, X 10 days, # 20 tabs, 0 Refill(s), 02/22/24 9:35:00 EDT, Pharmacy: [facility] #[id number] Medical Decision Making Chronic conditions NOT treated during this visit that affected my overall medical decision making: [] Treatment plans discussed but not opted for at this time: [] Prescribed medication that requires intensive monitoring for toxicity: [] I have reviewed the patient?s medication list for medication interactions/contra indications and/or for upcoming procedures: [yes or no] Time Spent with the Patient I have personally spent [] minutes on this date, directly related to today's patient visit, including pre and post visit work, for this date of service. Time listed does not include time spent on separately billable services. Problem List/Past Medical History Ongoing ADD Anxiety Asthma Back pain Bladder disorder Depression HSV PCOS- polycystic ovary syndrome Historical Gestational diabetes Miscarriage MRSA Ovarian cyst Procedure/Surgical History Dilation and curettage Conover Tooth extraction (2009) Oopherectomy (06/2010) Tonsillectomy and adenoidectomy (02/2011) Eye Surgery (12/15/2011) Cystoscopy (07/22/2012) Diagnostic Laparoscopy (07/22/2012) (03/22/2016) Laparoscopic cholecystectomy (03/29/2017) (05/22/2020) Dilation and Curettage (03/20/2021) Vaginal Hysterectomy (11/12/2022) Medications albuterol 90 mcg/inh inhalation aerosol, 2 puffs, Inhale, q6hr, PRN Bactrim DS 800 mg-160 mg oral tablet, 1 tabs, Oral, BID glipiZIDE 10 mg oral tablet, 20 mg= 2 tabs, Oral, BID hydrOXYzine hydrochloride 25 mg oral tablet, 25 mg= 1 tabs, Oral, TID, PRN hyoscyamine 0.125 mg sublingual tablet, 0.125 mg= 1 tabs, SL, q4hr, PRN metoclopramide 10 mg oral tablet, 10 mg= 1 tabs, Oral, QID, PRN omeprazole 40 mg oral delayed release capsule, 40 mg= 1 caps, Oral, BID tiZANidine 4 mg oral tablet, 4 mg= 1 tabs, Oral, TID, PRN Trulicity Pen 1.5 mg/0.5 mL subcutaneous solution, 1.5 mg= 0.5 mL, Subcutaneous, Saturday Zofran ODT 4 mg oral tablet, disintegrating, 4 mg= 1 tabs, Oral, TID, PRN Zoloft 25 mg oral tablet, 25 mg= 1 tabs, Oral, HS (at bedtime) Allergies penicillin (Hives) Latex (Rash) Pyr (more content not included)... [facility] C Woundon 02-10-2024 C Wound Final Light Growth of Normal skin madison isolated with . Heavy Growth of Staphylococcus lugdunensis isolated ORGANISM Stalug ------ SUSCEPTIBILITY ----- ORGANISM ID: 1 ANTIBIOTIC INTERPRETATION RENATO STATUS POS Staphylococcus lugdunensis Clindamycin R >=4 V Daptomycin S 0.25 V Doxycycline S <=0.5 V Erythromycin R >=8 V Linezolid S 1 V Levofloxacin S 1 V Oxacillin S 1 V Tetracycline S <=1 V Trimethoprim/Sulfa S <=10 V Vancomycin S <=0.5 V [facility] Comment on above: Performed By: #### W DC ####[facility] (DEFAULT)[address] [place], [place] [address]GGSGPS[facility]ALTH[address] [place] [address] ED Note-Nursingon 02-10-2024 ED Note-Nursing wound culture results reviewed by Dr. Mondragon/ no further orders at this time Electronically signed by Adela Yoder 02/10/24 07:50 EDT [facility] ED Clinical Summaryon 2023 ED Clinical Summary Formerly [facility] [address] [place] [address] ED Clinical Summary Person Information Name: Dorota Swanson Mikaela [facility] Age: 28 Years : 1995 Sex: Female PCP: Marital Status: Phone: Race: White Ethnicity: Not or Language: [place] Visit Reason: Abscess; Abscess Acuity: 4 Enc Type: Emergency Med Service: Emergency Medicine Arrival: 02/07/2024 18:20:02 Discharge: 02/07/2024 19:40:00 LOS: 000 01:20 Checkin: 02/07/2024 18:20:02 Checkout: 02/07/2024 19:40:00 Dispo Type: Home or Self Care Address: [address] [place] [id number] Provider Notes: Diagnosis: 1:Abscess of abdominal wall Problems No Problems Documented Smoking Status: Smoking Status 5-9 cigarettes (between 1/4 to 1/2 pack)/day in last 30 days Functional Status: Sensory Deficits: History of Falls: Mobility Assistance Prior to Admission: ADLs: Current Level of Assistance for Self-Care/Mobility: Cognitive Status: Allergies Latex (Rash) penicillin (Hives) Pyridium (Anxiety) Toradol (Shortness of breath) egg-containing compound (Nausea) Laboratory or Other Results This Visit (last charted value for your 02/07/2024 visit) No Laboratory or Other Results This Visit Measurements: Height: Weight: 118.0 kg Blood Pressure: /100 mmHg BMI: Procedures No Procedures Documented Immunizations No Immunizations Documented This Visit Final Med List: New Medications [facility] #[id number], [address] [place], [place] [id number], [phone] doxycycline (doxycycline hyclate 100 mg oral capsule) 1 Capsules Oral (given by mouth) 2 times a day for 10 Days. Refills: 0. Last Dose: Medications that have not changed Other Medications albuterol (albuterol 90 mcg/inh inhalation aerosol) 2 Puffs Inhale (breathe in) every 6 hours as needed as needed for wheezing. Last Dose: dulaglutide (Trulicity Pen 1.5 mg/0.5 mL subcutaneous solution) 0.5 Milliliter Subcutaneous (under the skin) Every Saturday. Last Dose: famotidine (Pepcid 20 mg oral tablet) 1 Tabs Oral (given by mouth) 2 times a day for 14 Days. Refills: 0. Last Dose: glipiZIDE (glipiZIDE 10 mg oral tablet) 2 Tabs Oral (given by mouth) 2 times a day. Last Dose: hydrOXYzine (hydrOXYzine hydrochloride 25 mg oral tablet) 1 Tabs Oral (given by mouth) 3 times a day as needed as needed for anxiety. Last Dose: hyoscyamine (hyoscyamine 0.125 mg sublingual tablet) 1 Tabs Sublingual (dissolve under the tongue) every 4 hours as needed cramping. Last Dose: metoclopramide (metoclopramide 10 mg oral tablet) 1 Tabs Oral (given by mouth) 4 times a day as needed nausea/vomiting. Last Dose: omeprazole (omeprazole 40 mg oral delayed release capsule) 1 Capsules Oral (given by mouth) 2 times a day. Last Dose: ondansetron (Zofran ODT 4 mg oral tablet, disintegrating) 1 Tabs Oral (given by mouth) 3 times a day as needed as needed for nausea/vomiting for 3 Days. Refills: 0. Last Dose: sertraline (Zoloft 25 mg oral tablet) 1 Tabs Oral (given by mouth) once a day (at bedtime). Last Dose: tiZANidine (tiZANidine 4 mg oral tablet) 1 Tabs Oral (given by mouth) 3 times a day as needed muscle spasms. Last Dose: [facility] #[id number], [address], [place] [id number], [phone] doxycycline (doxycycline hyclate 100 mg oral capsule) 1 Capsules Oral (given by mouth) 2 times a day for 10 Days. Refills: 0. Other Medications albuterol (albuterol 90 mcg/inh inhalation aerosol) 2 Puffs Inhale (breathe in) every 6 hours as needed as needed for wheezing. dulaglutide (Trulicity Pen 1.5 mg/0.5 mL subcutaneous solution) 0.5 Milliliter Subcutaneous (under the skin) Every Saturday. famotidine (Pepcid 20 mg oral tablet) 1 Tabs Oral (given by mouth) 2 times a day for 14 Days. Refills: 0. glipiZIDE (glipiZIDE 10 mg oral tablet) 2 Tabs Oral (given by mouth) 2 times a day. hydrOXYzine (hydrOXYzine hydrochloride 25 mg oral tablet) 1 Tabs Oral (given by mouth) 3 times a day as needed as needed for anxiety. hyoscyamine (hyoscyamine 0.125 mg sublingual tablet) 1 Tabs Sublingual (dissolve under the tongue) every 4 hours as needed cramping. metoclopramide (metoclopramide 10 mg oral tablet) 1 Tabs Oral (given by mouth) 4 times a day as needed nausea/vomiting. omeprazole (omeprazole 40 mg oral delayed release capsule) 1 Capsules Oral (given by mouth) 2 times a day. ondansetron (Zofran ODT 4 mg oral tablet, disintegrating) 1 Tabs Oral (given by mouth) 3 times a day as needed as needed for nausea/vomiting for 3 Days. Refills: 0. sertraline (Zoloft 25 mg oral tablet) 1 Tabs Oral (given by mouth) once a day (at bedtime). tiZANidine (tiZANi (more content not included)... [facility] ED Note-Physicianon 02-07-20 ED Note-Physician Chief Complaint I have had an abscess on my belly for 2-3 days that is warm to the touch hx MRSA and staph History of Present Illness Patient is an alert, oriented 28-year-old female presenting to the emergency department with complaint of what she believes is an abscess on her belly for the past 2 to 3 days. She reports that this area is warm to touch. She does have a history of MRSA and staph. Review of Systems As reviewed in the HPI. All other systems reviewed are negative or normal. Physical Exam CONSTITUTIONAL: [well appearing in no acute distress] SKIN: [Warm, dry, and intact without rash with exception to an area right lower abdomen on the underside of the pannus that is erythemic, edematous, and has an area of fluctuation noted.] EYES: [extraocular movements are grossly intact, clear conjunctiva] HENT: [Normocephalic, atraumatic, moist mucus membranes] NECK: [no obvious swelling, normal range of motion] PULMONARY: [normal chest rise and fall, no respiratory distress or stridor CARDIOVASCULAR: [regular rate, distal extremities are warm and well perfused] GASTROINSTESTINAL: [nondistended, non-tender] GENITOURINARY: [deferred] NEUROLOGIC: [normal speech, moves all extremities] MUSCULOSKELETAL: [no gross deformities, atraumatic] PSYCHIATRIC: [normal mood and affect] Vitals & Measurements T: 36.3 ?C (Oral) HR: 116 (Peripheral) RR: 16 BP: 148/100 SpO2: 95% WT: 118.0 kg (Dosing) Additional Vitals No qualifying data available. Procedure No qualifying data available. ASA Documentation Medical Decision Making MEDICAL DECISION MAKING Number and Complexity of Problems Differential Diagnosis: _Including but not limited to abscess of the abdominal wall, cellulitis Treatment and Disposition ED Course: _ Patient is an alert, oriented 28-year-old female presenting to the emergency department with complaint of what she believes is an abscess on her belly for the past 2 to 3 days. She reports that this area is warm to touch. She does have a history of MRSA and staph. On evaluation I do note an area in the right lower abdominal area, on the underside of the pannus, that is erythemic, edematous, and has an area of fluctuation noted. I did discuss with patient about wanting to obtain a swab of the drainage. I did explain to her that unfortunately I would have to vandana it to be able to get some of that drainage. Patient is with this. I did go ahead and use iodine to clean the area and used a 19-gauge needle to vandana the area of fluctuation. I was able to get a purulent drainage and sent for culture. I discussed starting patient on doxycycline while we wait for that culture. I did recommend follow-up with general surgery as if this does not go deeper than just the subcutaneous tissue she will want a general surgeon on board. Patient verbalized understanding and is agreeable with this. Orders placed accordingly. Plan to discharge home with the following discharge instructions: You can follow-up with general surgery, especially if abscess persists and worsens. Take doxycycline twice a day x 10 days. You can take Tylenol and/or ibuprofen as needed for pain/discomfort. This will continue to drain, change dressings as often as necessary. Please return to the emergency department for any new or worsening symptoms. Patient verbalized understanding had no further questions or concerns. All were agreeable with this plan of care. Shared decision making: _The results of pertinent diagnostic studies and exam findings were discussed. The patient's provisional diagnosis and plan of care were discussed with the patient and present family. The patient and/or present family expressed understanding of the diagnosis and plan. The nurse was instructed to provide written instructions and appropriate follow-up information. The patient understands their need and responsibility to obtain additional follow-up as instructed. The risks of medications administered and prescribed were discussed with the patient and family present. Code status: _Full code Assessment/Plan 1. Abscess of abdominal wall Ordered: Discharge Patient Orders: doxycycline, 1 caps, Oral, BID, X 10 days, # 20 caps, 0 Refill(s), 02/17/24 19:12:00 EDT, Pharmacy: [facility] #[id number] doxycycline, 100 mg, Oral, Tab, Once, First Dose: 02/07/24 19:11:00 EDT, Stop Date: 02/07/24 19:11:00 EDT, STAT, Dispense From Location: [facility], Skin and Soft Tissue, 02/07/24 19:11:00 EDT Culture Wound Refresh vitals and sections below: Problem List/Past Medical History Ongoing No qualifying data Historical No qualifying data Medications Inpatient doxycycline, 100 mg, Oral, Once Home albuterol 90 mcg/inh inhalation aerosol, 2 puffs, Inhale, q6hr, PRN doxycycline hyclate 100 mg oral capsule, 100 mg= 1 caps, Oral, BID glipiZIDE 10 mg oral tablet, 20 mg= 2 tabs, Oral, BID hydrOXYzine hydrochloride 25 mg oral tablet, 25 mg= 1 tabs, Oral, TID, PRN hyoscyamine 0.125 mg sublingual (more content not included)... [facility] Basic Metabolic Panelon 05 Anion gap [Moles/Vol] 14 mmol/L 9 - 17 mmol/L [facility] Calcium [Mass/Vol] 9.3 mg/dL 8.6 - 10. 4 mg/dL [facility] Chloride [Moles/Vol] 98 mmol/L 98 - 10 7 mmol/L [facility] CO2 [Moles/Vol] 23 mmol/L 20 - 31 mmol/L [facility] Creatinine [Mass/Vol] 0.6 mg/dL 0.5 - 0.9 mg/dL [facility] Est, Glom Filt Rate - [facility] Comment on above: These results are not intended for use in patients <18 years of age. eGFR results are calculated without a race factor using the 2020 CKD-EPI equation. Careful clinical correlation is recommended, particularly when comparing to results calculated using previous equations. The CKD-EPI equation is less accurate in patients with extremes of muscle mass, extra-renal metabolism of creatine, excessive creatine ingestion, or following therapy that affects renal tubular secretion. Glucose [Mass/Vol] 360 mg/dL High 70 - 99 mg/dL [facility] Interpretation and review of laboratory results Abnormal [facility] Potassium [Moles/Vol] 4.2 mmol/L 3.7 - 5.3 mmol/L [facility] Sodium [Moles/Vol] 135 mmol/L 135 - 144 mmol/L [facility] Urea nitrogen [Mass/Vol] 10 mg/dL 6 - 20 mg/dL [facility] Urea nitrogen/Creatinine [Mass ratio] 17 mg/mg 9 - 20 [facility] Basic Metabolic Profon 01-29 Anion gap [Moles/Vol] 14 mmol/L Normal 9-17 [facility] Comment on above: Performed By: #### GABRIELA STARR, CDP ####[facility] [place] , [place] [id number] Lab Director: aRy Arceo MD BUN/CRE Ratio 17 Normal 9-20 [facility] Comment on above: Performed By: #### GABRIELA STARR, CDP ####[facility] [place] , [place] [id number] Lab Director: Ray Arceo MD Calcium [Mass/Vol] 9.3 mg/dL Normal 8.6-10.4 [facility] Comment on above: Performed By: #### GABRIELA STARR, CDP ####[facility] [place] , [place] [id number] Lab Director: Ray Arceo MD Chloride [Moles/Vol] 98 mmol/L Normal 98-107 [facility] Comment on above: Performed By: #### GABRIELA STARR, CDP ####[facility] [place] , [place] [id number] Lab Director: Ray Arceo MD CO2 [Moles/Vol] 23 mmol/L Normal 20-[address] [facility] Comment on above: Performed By: #### T GABRIELA GUNN, CDP ####[facility] [place] , [place] [id number] lab Director: Ray Arceo MD Creatinine [Mass/Vol] 0.6 mg/dL Normal 0.5-0.9 [facility] Comment on above: Performed By: #### T GABRIELA GUNN, CDP ####[facility] [place] , [place] [id number] lab Director: Ray Arceo MD GFR/1.73 sq M.predicted among non-blacks MDRD (S/P/Bld) [Vol rate/Area] mL/min/{1.73_m2} Normal >60 [facility] Comment on above: Result Comment: Thes e results are not intended for use in patients <18 years of age.eGFR results are calculated without a race factor using the 2020 CKD-EPI equation.Careful clinical correlation is recommended, particularly when comparing to results calculated using previous equations.The CKD-EPI equation is less accurate in patients with extremes of muscle mass, extra-renal metabolism of creatine, excessive creatine ingestion, or following therapy that affects renal tubular secretion. Performed By: #### GABRIELA STARR, CDP ####[address] , [place] 129[address]83 Lab Director: Ray Arceo MD Glucose [Mass/Vol] 360 mg/dL High 70-99 [facility] Comment on above: Performed By: #### T GABRIELA GUNN, CDP ####[address] , [place] [id number] Lab Director: Ray Arceo MD Potassium [Moles/Vol] 4.2 mmol/L Normal 3.7-5.3 [facility] Comment on above: Performed By: #### GABRIELA STARR, CDP ####[address] [id number] Lab Director: Ray Arceo MD Sodium [Moles/Vol] 135 mmol/L Normal 135-144 [facility] Comment on above: Performed By: #### GABRIELA STARR, CDP ####[facility] [place] , [place] 0[address]83 lab Director: Ray Arceo MD Urea nitrogen [Mass/Vol] 10 mg/dL Normal 6-20 [facility] Comment on above: Performed By: #### GABRIELA STARR, CDP ####[facility] [place] , [place] [id number] lab Director: Ray Arceo MD CBC with Auto Differentialon 01-30-2024 Basophils (Bld) [#/Vol] 0.05 10*3/uL [facility] Basophils/100 WBC (Bld) 1 % 0 - 2 % B [facility] Eosinophils (Bld) [#/Vol] 0.09 10*3/uL [facility] Eosinophils/100 WBC (Bld) 1 % 1 - 4 % [facility] Erythrocyte distribution width (RBC) [Ratio] 12.9 % 11.8 - 14.4 % [facility] Hematocrit (Bld) [Volume fraction] 44.1 % 36.3 - 47.1 % [facility] Hemoglobin (Bld) [Mass/Vol] 15.1 g/dL 11.9 - 15.1 g/dL [facility] Immature granulocytes (Bld) [#/Vol] 0.05 10*3/uL [facility] Immature granulocytes/100 WBC (Bld) 1 % High 0 [facility] Interpretation and review of laboratory results Abnormal [facility] Lymphocytes/100 WBC (Bld) 34 % 24 - 43 % [facility] Lymphocytes/100 WBC (Bld) 3.43 % [facility] MCH (RBC) [Entitic mass] 30.8 pg 25.2 - 33.5 pg [facility] MCHC (RBC) [Mass/Vol] 34.2 g/dL 28.4 - 34.8 g/dL [facility] MCV (RBC) [Entitic vol] 90.0 fL 82.6 - 102.9 fL [facility] Monocytes/100 WBC (Bld) 4 % 3 - 12 % B [facility] Monocytes/100 WBC (Bld) 0.45 % B [facility] Neutrophils/100 WBC (Bld) 59 % 36 - 65 % [facility] Nucleated RBC/100 WBC (Bld) [Ratio] 0.0 % 0.0 per 100 WBC [facility] Platelet mean volume (Bld) [Entitic vol] 11.2 fL 8.1 - 13.5 fL [facility] Platelets (Bld) [#/Vol] 326 10*3/uL [facility] RBC (Bld) [#/Vol] 4.90 10*6/uL 3.95 - 5.1 1 m/uL [facility] Segmented neutrophils/100 WBC (Bld) 6.06 % [facility] WBC other (Bld) [#/Vol] 10.1 B ON [facility] CBC with Diffon 01-30-2024 Abs. Basophil 0.05 k/uL Normal 0.00-0.20 [facility] Comment on above: Performed By: #### GABRIELA STARR, CDP ####[address] [place] [address] Lab Director: Ray Arceo MD Abs.Imm.Granulocyte 0.05 k/uL Normal 0.00-0.30 [facility] Comment on above: Performed By: #### T GABRIELA GUNN, CDP ####[facility] [place] , [place] 626[address]83 Lab Director: Ray Arceo MD Abs.Neutrophil (Seg) 6.06 k/uL Normal 1.50-8.10 [facility] Comment on above: Performed By: #### GABRIELA STARR, CDP ####[facility] [place] , [place] 0989683 Lab Director: Ray Arceo MD Basophils/100 WBC (Bld) 1 % Normal 0-2 M [facility] Comment on above: Performed By: #### GABRIELA STARR, CDP ####[address] , [place] 1239583 Lab Director: Ray Arceo MD Eosinophils (Bld) [#/Vol] 0.09 10*3/uL Normal 0.00-0.44 [facility] Comment on above: Performed By: #### GABRIELA STARR, CDP ####[address] , [place] [id number] Lab Director: Ray Arceo MD Eosinophils/100 WBC (Bld) 1 % Normal 1-4 [facility] Comment on above: Performed By: #### GABRIELA STARR, CDP ####[address] , [place] 6898583 Lab Director: Ray Arceo MD Erythrocyte distribution width (RBC) [Ratio] 12.9 % Normal 11.8-14.4 [facility] Comment on above: Performed By: #### GABRIELA STARR, CDP ####[address] , [place] 1639583 Lab Director: Ray Arceo MD Hematocrit (Bld) [Volume fraction] 44.1 % Normal 36.3-47.1 [facility] Comment on above: Performed By: #### GABRIELA STARR, CDP ####[address] , [place] 600[address]83 Lab Director: Ray Arceo MD Hemoglobin (Bld) [Mass/Vol] 15.1 g/dL Normal 11.9-15.1 [facility] Comment on above: Performed By: #### GABRIELA STARR, CDP ####[address] , [place] 8717183 Lab Director: Ray Arceo MD Immature granulocytes/100 WBC (Bld) 1 % High 0 [facility] Comment on above: Performed By: #### GABRIELA STARR, CDP ####[address] [place] [address] Lab Director: Ray Arceo MD Lymphocytes (Bld) [#/Vol] 3.43 10*3/uL Normal 1.10-3.70 [facility] Comment on above: Performed By: #### GABRIELA STARR, CDP ####[address] , [facility]83 Lab Director: Ray Arceo MD Lymphocytes/100 WBC (Bld) 34 % Normal 24-43 [facility] Comment on above: Performed By: #### GABRIELA STARR, CDP ####[address] , [facility]83[facility])[phone] Director: Ray Arceo MD MCH (RBC) [Entitic mass] 30.8 pg Normal 25.2-33.5 [facility] Comment on above: Performed By: #### GABRIELA STARR, CDP ####[address] [place] [address] Lab Director: Ray Arceo MD MCHC (RBC) [Mass/Vol] 34.2 g/dL Normal 28.4-34.8 [facility] Comment on above: Performed By: #### GABRIELA STARR, CDP ####[address] [place] [address] Lab Director: Ray Arceo MD MCV (RBC) [Entitic vol] 90.0 fL Normal 82.6-102.9 M [facility] Comment on above: Performed By: #### GABRIELA STARR, CDP ####[address] , [place] 0320483 Lab Director: Ray Arceo MD Monocytes (Bld) [#/Vol] 0.45 10*3/uL Normal 0.10-1.20 [facility] Comment on above: Performed By: #### GABRIELA STARR, CDP ####[address] [place] [address] Lab Director: Ray Arceo MD Monocytes/100 WBC (Bld) 4 % Normal 3-12 M [facility] Comment on above: Performed By: #### GABRIELA STARR, CDP ####[address] [place] [address] Lab Director: Ray Arceo MD Neutrophil (Seg) 59 % Normal 36-65 [facility] Comment on above: Performed By: #### GABRIELA STARR, CDP ####[address] , [place] 439[address]83 Lab Director: Ray Arceo MD NRBC Automated 0.0 per 100 WBC Normal 0.0 [facility] Comment on above: Performed By: #### GABRIELA STARR, CDP ####[address] [place] [address] Lab Director: Ray Arceo MD Platelet mean volume (Bld) [Entitic vol] 11.2 fL Normal 8.1-13.5 [facility] Comment on above: Performed By: #### GARBIELA STARR, CDP ####[address] [place] [address] Lab Director: Ray Arceo MD Platelets (Bld) [#/Vol] 326 10*3/uL Normal 138-453 [facility] Comment on above: Performed By: #### GABRIELA STARR, CDP ####[address] , [place] 776[address]83 Lab Director: Ray Arceo MD RBC (Bld) [#/Vol] 4.90 10*6/uL Normal 3.95-5.11 [facility] Comment on above: Performed By: #### T GABRIELA GUNN, CDP ####[facility] [place] [address] lab Director: Ray Arceo MD WBC (Bld) [#/Vol] 10.1 10*3/uL Normal 3.5-11.3 [facility] Comment on above: Performed By: #### T GABRIELA GUNN, CDP ####[facility] [place] , [place] [id number] lab Director: Ray Arceo MD CT CHEST PULMONARY EMBOLISM W CONTRASTon 01-30-2024 CT CHEST PULMONARY EMBOLISM W CONTRAST Normal [facility] No evidence of pulmonary embolism or acute pulmonary abnormality. [facility] EXAMINATION: CTA OF THE CHEST 01/30/2024 6:41 pm TECHNIQUE: CTA of the chest was performed after the administration of intravenous contrast. Multiplanar reformatted images are provided for review. MIP images are provided for review. Automated exposure control, iterative reconstruction, and/or weight based adjustment of the mA/kV was utilized to reduce the radiation dose to as low as reasonably achievable. COMPARISON: 10/25/2023 HISTORY: ORDERING SYSTEM PROVIDED HISTORY: chest pain TECHNOLOGIST PROVIDED HISTORY: chest pain FINDINGS: Pulmonary Arteries: Pulmonary arteries are adequately opacified for evaluation. No evidence of intraluminal filling defect to suggest pulmonary embolism. Main pulmonary artery is normal in caliber. Mediastinum: No evidence of mediastinal lymphadenopathy. The heart and pericardium demonstrate no acute abnormality. There is no acute abnormality of the thoracic aorta. Lungs/pleura: The lungs are without acute process. No focal consolidation or pulmonary edema. No evidence of pleural effusion or pneumothorax. Upper Abdomen: Limited images of the upper abdomen are unremarkable. Soft Tissues/Bones: No acute bone or soft tissue abnormality. [facility] Kimani Conway MD - 01/30/2024 EXAMINATION: CTA OF THE CHEST 01/30/2024 6:41 pm TECHNIQUE: CTA of the chest was performed after the administration of intravenous contrast. Multiplanar reformatted images are provided for review. MIP images are provided for review. Automated exposure control, iterative reconstruction, and/or weight based adjustment of the mA/kV was utilized to reduce the radiation dose to as low as reasonably achievable. COMPARISON: 10/25/2023 HISTORY: ORDERING SYSTEM PROVIDED HISTORY: chest pain TECHNOLOGIST PROVIDED HISTORY: chest pain FINDINGS: Pulmonary Arteries: Pulmonary arteries are adequately opacified for evaluation. No evidence of intraluminal filling defect to suggest pulmonary embolism. Main pulmonary artery is normal in caliber. Mediastinum: No evidence of mediastinal lymphadenopathy. The heart and pericardium demonstrate no acute abnormality. There is no acute abnormality of the thoracic aorta. Lungs/pleura: The lungs are without acute process. No focal consolidation or pulmonary edema. No evidence of pleural effusion or pneumothorax. Upper Abdomen: Limited images of the upper abdomen are unremarkable. Soft Tissues/Bones: No acute bone or soft tissue abnormality. IMPRESSION: No evidence of pulmonary embolism or acute pulmonary abnormality. [facility] Radiology Study observation (narrative) [facility] CT CHEST PULMONARY EMBOLISM W CONTRASTOrdered By: Kimani Conway on 01-30-2024 [facility] Work Phone: Troponinon 01-30-2024 Troponin I.cardiac High sensitivity method [Mass/Vol] ng/L 0 - 14 ng/L [facility] Comment on above: High Sensitivity Tro ponin values cannot be compared with other Troponin methodologies. [facility] Troponin, High Sens <6 Normal 0-14 [facility] Comment on above: Result Comment: High Sensitivity Troponin values cannot be compared with other Troponin methodologies. Performed By: #### T GABRIELA GUNN, CDP ####[facility] [place] [address] lab Director: Ray Arceo MD Basic Metabolic Profon 01-26 Anion gap [Moles/Vol] 14 mmol/L Normal 9-17 [facility] Comment on above: Performed By: #### C VENKAT, BMP ####[facility] [place] [address] lab Director: Ray Arceo MD BUN/CRE Ratio 18 Normal 9-20 [facility] Comment on above: Performed By: #### C VENKAT, BMP ####[address] , [place] [id number] Lab Director: Ray Arceo MD Calcium [Mass/Vol] 9.6 mg/dL Normal 8.6-10.4 [facility] Comment on above: Performed By: #### C DP, BMP ####[address] [place] [address] Lab Director: Ray Arceo MD Chloride [Moles/Vol] 101 mmol/L Normal 98-107 [facility] Comment on above: Performed By: #### C DP, BMP ####[address] [place] [address] Lab Director: Ray Arceo MD CO2 [Moles/Vol] 24 mmol/L Normal 20-[address] [facility] Comment on above: Performed By: #### C DP, BMP ####[address] , [place] [id number] Lab Director: Ray Arceo MD Creatinine [Mass/Vol] 0.6 mg/dL Normal 0.5-0.9 [facility] Comment on above: Performed By: #### C DP, BMP ####[address] , [place] 1047483 Lab Director: Ray Arceo MD GFR/1.73 sq M.predicted among non-blacks MDRD (S/P/Bld) [Vol rate/Area] mL/min/{1.73_m2} Normal >60 [facility] Comment on above: Result Comment: Thes e results are not intended for use in patients <18 years of age.eGFR results are calculated without a race factor using the 2020 CKD-EPI equation.Careful clinical correlation is recommended, particularly when comparing to results calculated using previous equations.The CKD-EPI equation is less accurate in patients with extremes of muscle mass, extra-renal metabolism of creatine, excessive creatine ingestion, or following therapy that affects renal tubular secretion. Performed By: #### C DP, BMP ####[address] [place] [address] Lab Director: Ray Arceo MD Glucose [Mass/Vol] 248 mg/dL High 70-99 [facility] Comment on above: Performed By: #### C DP, BMP ####[address] , [place] [phone] Director: Ray Arceo MD Potassium [Moles/Vol] 4.2 mmol/L Normal 3.7-5.3 [facility] Comment on above: Performed By: #### C DP, BMP ####[address] , [place] [phone] Director: Ray Arceo MD Sodium [Moles/Vol] 139 mmol/L Normal 135-144 [facility] Comment on above: Performed By: #### C DP, BMP ####[address] , [place] [phone] Director: Ray Arceo MD Urea nitrogen [Mass/Vol] 11 mg/dL Normal 6-20 [facility] Comment on above: Performed By: #### C DP, BMP ####[address] [place] [address] Lab Director: Ray Arceo MD CBC with Diffon 01-27-2024 Abs. Basophil 0.06 k/uL Normal 0.00-0.20 [facility] Comment on above: Performed By: #### C DP, BMP ####[address] , [place] [phone] Director: Ray Arceo MD Abs.Imm.Granulocyte 0.06 k/uL Normal 0.00-0.30 [facility] Comment on above: Performed By: #### C DP, BMP ####[address] , [place] 1392383 Lab Director: Ray Arceo MD Abs.Neutrophil (Seg) 7.55 k/uL Normal 1.50-8.10 [facility] Comment on above: Performed By: #### C DP, BMP ####[address] , [place] [address] [facility] Director: Ray Arceo MD Basophils/100 WBC (Bld) 1 % Normal 0-2 [facility] Comment on above: Performed By: #### C DP, BMP ####[address] , [place] [address] [facility] Director: Ray Arceo MD Eosinophils (Bld) [#/Vol] 0.11 10*3/uL Normal 0.00-0.44 [facility] Comment on above: Performed By: #### C DP, BMP ####[address] , [place] [address] [facility] Director: Ray Arceo MD Eosinophils/100 WBC (Bld) 1 % Normal 1-4 [facility] Comment on above: Performed By: #### C DP, BMP ####[address] , [place] [address] Lab Director: Ray Arceo MD Erythrocyte distribution width (RBC) [Ratio] 13.0 % Normal 11.8-14.4 [facility] Comment on above: Performed By: #### C DP, BMP ####[address] , [place] [address])[phone] Director: Ray Arceo MD Hematocrit (Bld) [Volume fraction] 42.1 % Normal 36.3-47.1 [facility] Comment on above: Performed By: #### C DP, BMP ####[address] [place] [id number] Lab Director: Ray Arceo MD Hemoglobin (Bld) [Mass/Vol] 14.4 g/dL Normal 11.9-15.1 [facility] Comment on above: Performed By: #### C DP, BMP ####[address] , [place] 3397583 Lab Director: Ray Arceo MD Immature granulocytes/100 WBC (Bld) 1 % High 0 [facility] Comment on above: Performed By: #### C DP, BMP ####[address] , [facility]83 Lab Director: Ray Arceo MD Lymphocytes (Bld) [#/Vol] 2.98 10*3/uL Normal 1.10-3.70 [facility] Comment on above: Performed By: #### C DP, BMP ####[address] , [facility]83 Lab Director: Ray Arceo MD Lymphocytes/100 WBC (Bld) 27 % Normal 24-43 [facility] Comment on above: Performed By: #### C DP, BMP ####[address] , [place] 8992883 Lab Director: Ray Arceo MD MCH (RBC) [Entitic mass] 30.7 pg Normal 25.2-33.5 [facility] Comment on above: Performed By: #### C DP, BMP ####[address] , [place] 2297883 Lab Director: Ray Arceo MD MCHC (RBC) [Mass/Vol] 34.2 g/dL Normal 28.4-34.8 [facility] Comment on above: Performed By: #### C DP, BMP ####[address] , [place] 468[address]83 Lab Director: Ray Arceo MD MCV (RBC) [Entitic vol] 89.8 fL Normal 82.6-102.9 M [facility] Comment on above: Performed By: #### C DP, BMP ####[address] , [place] 3526283 Lab Director: Ray Arceo MD Monocytes (Bld) [#/Vol] 0.50 10*3/uL Normal 0.10-1.20 [facility] Comment on above: Performed By: #### C DP, BMP ####[address] , [place] 0324883 Lab Director: Ray Arceo MD Monocytes/100 WBC (Bld) 4 % Normal 3-12 M [facility] Comment on above: Performed By: #### C DP, BMP ####[address] , [place] [phone] Director: Ray Arceo MD Neutrophil (Seg) 66 % High 36-65 [facility] Comment on above: Performed By: #### C DP, BMP ####[address] , [facility]83[facility])[phone] Director: Ray Arceo MD NRBC Automated 0.0 per 100 WBC Normal 0.0 [facility] Comment on above: Performed By: #### C DP, BMP ####[address] [place] [address] Lab Director: Ray Arceo MD Platelet mean volume (Bld) [Entitic vol] 11.0 fL Normal 8.1-13.5 [facility] Comment on above: Performed By: #### C DP, BMP ####[address] , [place] [phone])[phone] Director: Ray Arceo MD Platelets (Bld) [#/Vol] 321 10*3/uL Normal 138-453 [facility] Comment on above: Performed By: #### C DP, BMP ####[address] , [place] 1261083 Lab Director: Ray Arceo MD RBC (Bld) [#/Vol] 4.69 10*6/uL Normal 3.95-5.11 [facility] Comment on above: Performed By: #### C DP, BMP ####[address] [place] [address]([facility])[phone] Director: Ray Arceo MD WBC (Bld) [#/Vol] 11.3 10*3/uL Normal 3.5-11.3 [facility] Comment on above: Performed By: #### C DP, BMP ####[address] , [facility]83[facility])[phone] Director: Ray Arceo MD CBC with Diffon 01-16-2024 Abs. Basophil 0.00 k/uL Normal 0.0-0.2 [facility] Comment on above: Performed By: #### C P, LIP, CDP ####[address] , [place] [address])[phone] Director: Ray Arceo MD Abs.Imm.Granulocyte 0.12 k/uL Normal 0.00-0.30 [facility] Comment on above: Performed By: #### C P, LIP, CDP ####[address] , [facility]83419)[phone] Director: Ray Arceo MD Abs.Neutrophil (Seg) 4.92 k/uL Normal 1.50-8.10 [facility] Comment on above: Performed By: #### C P, LIP, CDP ####[address] , [place] [address])[phone] Director: Ray Arceo MD Basophils/100 WBC (Bld) 0 % Normal 0-2 [facility] Comment on above: Performed By: #### C P, LIP, CDP ####[address] , [place] [phone] Director: Ray Arceo MD Eosinophils (Bld) [#/Vol] 0.12 10*3/uL Normal 0.00-0.44 [facility] Comment on above: Performed By: #### C P, LIP, CDP ####[address] , [place] [address])[phone] Director: Ray Arceo MD Eosinophils/100 WBC (Bld) 1 % Normal 1-4 [facility] Comment on above: Performed By: #### C P, LIP, CDP ####[address] , [place] [address] Lab Director: Ray Arceo MD Immature granulocytes/100 WBC (Bld) 1 % High 0 [facility] Comment on above: Performed By: #### C P, LIP, CDP ####[address] , [facility]83 Lab Director: Ray Arceo MD Lymphocytes (Bld) [#/Vol] 6.48 10*3/uL High 1.10-3.70 [facility] Comment on above: Performed By: #### C P, LIP, CDP ####[address] , [place] [address])[phone] Director: Ray Arceo MD Lymphocytes/100 WBC (Bld) 54 % High 24-43 [facility] Comment on above: Performed By: #### C P, LIP, CDP ####[address] , [facility]83[facility])[phone] Director: Ray Arceo MD Monocytes (Bld) [#/Vol] 0.36 10*3/uL Normal 0.10-1.20 [facility] Comment on above: Performed By: #### C P, LIP, CDP ####[address] , [place] 6289583 Lab Director: Ray Arceo MD Monocytes/100 WBC (Bld) 3 % Normal 3-12 M [facility] Comment on above: Performed By: #### C P, LIP, CDP ####[address] , [place] [id number] Lab Director: Ray Arceo MD Morphology Kenan (Bld) [Interp] ANISOCYTOSIS Normal [facility] Comment on above: Result Comment: PRES ENTPlatelet scan shows Normal Platelets Performed By: #### C P, LIP, CDP ####[address] , [place] [address] Lab Director: Ray Arceo MD Neutrophil (Seg) 41 % Normal 36-65 [facility] Comment on above: Performed By: #### C P, LIP, CDP ####[address] , [facility]83 Lab Director: Ray Arceo MD Erythrocyte distribution width (RBC) [Ratio] 12.9 % Normal 11.8-14.4 [facility] Comment on above: Performed By: #### C P, LIP, CDP ####[address] , [place] [address] Lab Director: Ray Arceo MD Hematocrit (Bld) [Volume fraction] 44.4 % Normal 36.3-47.1 [facility] Comment on above: Performed By: #### C P, LIP, CDP ####[address] , [place] [address] Lab Director: Ray Arceo MD Hemoglobin (Bld) [Mass/Vol] 15.0 g/dL Normal 11.9-15.1 [facility] Comment on above: Performed By: #### C P, LIP, CDP ####[address] , [facility]83 Lab Director: Ray Arceo MD MCH (RBC) [Entitic mass] 30.2 pg Normal 25.2-33.5 [facility] Comment on above: Performed By: #### C P, LIP, CDP ####[address] , [place] [id number] Lab Director: Ray Arceo MD MCHC (RBC) [Mass/Vol] 33.8 g/dL Normal 28.4-34.8 [facility] Comment on above: Performed By: #### C P, LIP, CDP ####[address] , [place] 826[address]83 Lab Director: Ray Arceo MD MCV (RBC) [Entitic vol] 89.3 fL Normal 82.6-102.9 [facility] Comment on above: Performed By: #### C P, LIP, CDP ####[address] , [facility]83 Lab Director: Ray Arceo MD NRBC Automated 0.0 per 100 WBC Normal 0.0 [facility] Comment on above: Performed By: #### C P, LIP, CDP ####[address] , [facility]83 Lab Director: Ray Arceo MD Platelet mean volume (Bld) [Entitic vol] 11.0 fL Normal 8.1-13.5 [facility] Comment on above: Performed By: #### C P, LIP, CDP ####[address] , [facility]83 Lab Director: Ray Arceo MD Platelets (Bld) [#/Vol] 328 10*3/uL Normal 138-453 [facility] Comment on above: Performed By: #### C P, LIP, CDP ####[address] , [place] 4156383 Lab Director: Ray Arceo MD RBC (Bld) [#/Vol] 4.97 10*6/uL Normal 3.95-5.11 [facility] Comment on above: Performed By: #### C P, LIP, CDP ####[address] , [place] 0326[address] [facility] Director: Ray Arceo MD WBC (Bld) [#/Vol] 12.0 10*3/uL High 3.5-11.3 [facility] Comment on above: Performed By: #### C P, LIP, CDP ####[address] , [place] 080[address]83 [facility] Director: Ray Arceo MD CT ABDOMEN PELVIS WO CONTRAS Ton 01-16-2024 CT ABDOMEN PELVIS WO CONTRAST Normal [facility] Comp Metabolic Profon 2023 Albumin [Mass/Vol] 4.3 g/dL Normal 3.5-5.2 [facility] Comment on above: Performed By: #### C P, LIP, CDP ####[address] , [place] 425[address]83 [facility] Director: Ray Arceo MD Albumin/Glob Ratio 1.0 Normal 1.0-2.5 [facility] Comment on above: Performed By: #### C P, LIP, CDP ####[address] , [place] [id number] lab Director: Ray Arceo MD Alkaline Phos 109 U/L High 35-104 [facility] Comment on above: Performed By: #### C P, LIP, CDP ####[address] , [place] [id number] Lab Director: Ray Arceo MD ALT [Catalytic activity/Vol] 72 U/L High 5-33 [facility] Comment on above: Performed By: #### C P, LIP, CDP ####[address] , [place] [id number] lab Director: Ray Arceo MD Anion gap [Moles/Vol] 14 mmol/L Normal 9-17 [facility] Comment on above: Performed By: #### C P, LIP, CDP ####[address] , [place] [id number] Lab Director: Ray Arceo MD AST [Catalytic activity/Vol] 125 U/L High <32 [facility] Comment on above: Performed By: #### C P, LIP, CDP ####[address] , [place] [id number] Lab Director: Ray Arceo MD Bilirubin [Mass/Vol] 0.4 mg/dL Normal 0.3-1.2 [facility] Comment on above: Performed By: #### C P, LIP, CDP ####[address] , [place] [id number] Lab Director: Ray Arceo MD BUN/CRE Ratio 15 Normal 9-20 [facility] Comment on above: Performed By: #### C P, LIP, CDP ####[address] , [place] [id number] Lab Director: Ray Arceo MD Calcium [Mass/Vol] 9.8 mg/dL Normal 8.6-10.4 [facility] Comment on above: Performed By: #### C P, LIP, CDP ####[address] , [place] 0007883 Lab Director: Ray Arceo MD Chloride [Moles/Vol] 103 mmol/L Normal 98-107 [facility] Comment on above: Performed By: #### C P, LIP, CDP ####[address] , [place] 4692783 Lab Director: Ray Arceo MD CO2 [Moles/Vol] 22 mmol/L Normal 20-[address] [facility] Comment on above: Performed By: #### C P, LIP, CDP ####[address] , [place] 1349483 Lab Director: Ray Arceo MD Creatinine [Mass/Vol] 0.6 mg/dL Normal 0.5-0.9 [facility] Comment on above: Performed By: #### C P, LIP, CDP ####[address] [place] [address] lab Director: Ray Arceo MD GFR/1.73 sq M.predicted among non-blacks MDRD (S/P/Bld) [Vol rate/Area] mL/min/{1.73_m2} Normal >60 [facility] Comment on above: Result Comment: Thes e results are not intended for use in patients <18 years of age.eGFR results are calculated without a race factor using the 2020 CKD-EPI equation.Careful clinical correlation is recommended, particularly when comparing to results calculated using previous equations.The CKD-EPI equation is less accurate in patients with extremes of muscle mass, extra-renal metabolism of creatine, excessive creatine ingestion, or following therapy that affects renal tubular secretion. Performed By: #### C P, LIP, CDP ####[address] , [place] 0636383 Lab Director: Ray Arceo MD Glucose [Mass/Vol] 154 mg/dL High 70-99 [facility] Comment on above: Performed By: #### C P, LIP, CDP ####[address] , [place] [id number] lab Director: Ray Arceo MD Potassium [Moles/Vol] 4.1 mmol/L Normal 3.7-5.3 [facility] Comment on above: Performed By: #### C P, LIP, CDP ####[address] , [place] 7382883 lab Director: Ray Arceo MD Protein [Mass/Vol] 8.4 g/dL High 6.4-8.3 [facility] Comment on above: Performed By: #### C P, LIP, CDP ####[address] , [place] 9783683 lab Director: Ray Arceo MD Sodium [Moles/Vol] 139 mmol/L Normal 135-144 [facility] Comment on above: Performed By: #### C P, LIP, CDP ####[address] , [place] [id number] Lab Director: Ray Arceo MD Urea nitrogen [Mass/Vol] 9 mg/dL Normal 6-20 [facility] Comment on above: Performed By: #### C P, LIP, CDP ####[address] , [place] 0975583 Lab Director: Ray Arceo MD Lipaseon 9 Lipase [Catalytic activity/Vol] 59 U/L Normal 13-60 [facility] Comment on above: Performed By: #### C P, LIP, CDP ####[address] , [place] [id number] Lab Director: Ray Arceo MD UA w/Reflex Cultureon 2023 Bilirubin, SemiQt,Ur SMALL Abnormal NEG [facility] Comment on above: Performed By: #### U FERNANDOO, UAX ####[address] , [place] 1414983 Lab Director: Ray Arceo MD Blood, Urine Negative Normal NEG [facility] Comment on above: Performed By: #### U MICAO, UAX ####[address] , [place] [id number] Lab Director: Ray Arceo MD Clarity (U) Clear Normal CLEAR [facility] Comment on above: Performed By: #### U MICAO, UAX ####[address] [place] [address] Lab Director: Rya Arceo MD Color (U) Yellow Normal YEL [facility] Comment on above: Performed By: #### U MICAO, UAX ####[address] , [place] 1607983 Lab Director: Ray Arceo MD Glucose Ql (U) Negative Normal NEG [facility] Comment on above: Performed By: #### U MICAO, UAX ####[address] , [place] 1692683 Lab Director: Ray Arceo MD Ketones Ql (U) Negative Normal NEG [facility] Comment on above: Performed By: #### U MICAO, UAX ####[address] , [place] 5670583 Lab Director: Ray Arceo MD Leukocyte esterase Test strip Ql (U) Negative Normal NEG [facility] Comment on above: Performed By: #### U MICAO, UAX ####[address] , [place] 8584683 Lab Director: Ray Arceo MD Nitrite,Ur Negative Normal [facility] Comment on above: Performed By: #### U MICAO, UAX ####[address] [place] [address] Lab Director: Ray Arceo MD PH,Ur 6.0 Normal 5.0-9.0 [facility] Comment on above: Performed By: #### U MICAO, UAX ####[address] , [place] 5571783 Lab Director: Ray Arceo MD Protein Ql (U) TRACE Abnormal NEG [facility] Comment on above: Performed By: #### U MICAO, UAX ####[address] , [place] 7168883 Lab Director: Ray Arceo MD Spec. [place],Ur >1.030 High 1.010-1.020 [facility] Comment on above: Performed By: #### U MICAO, UAX ####[address] [place] [address] lab Director: Ray Arceo MD Urobilinogen,Ur Normal Normal 0.0-1.[address] [facility] Comment on above: Performed By: #### U MICAO, UAX ####[address] , [place] [id number] lab Director: Ray Arceo MD Urinalysis,Microon 4 Bacteria 1+ Abnormal NONE [facility] Comment on above: Performed By: #### U MICAO, UAX ####[address] , [place] [id number] lab Director: Ray Arceo MD Epithelial cells LM Ql (Urine sed) 2 TO 5 Normal 0-25 [facility] Comment on above: Performed By: #### U MICAO, UAX ####[address] , [place] 0716583 lab Director: Ray Arceo MD Mucus Strands 3+ Abnormal NONE [facility] Comment on above: Performed By: #### U MICAO, UAX ####[address] , [place] 8274783 lab Director: Ray Arceo MD Urine RBC's 0 TO 2 Normal 0-2 [facility] Comment on above: Performed By: #### U MICAO, UAX ####[address] , [place] [id number] lab Director: Ray Arceo MD Urine WBC's 2 TO 5 Normal 0-5 [facility] Comment on above: Performed By: #### U MICAO, UAX ####[address] [place] [address] lab Director: Ray Arceo MD CBC with Diffon 01-13-2024 Abs. Basophil 0.06 k/uL Normal 0.00-0.20 [facility] Comment on above: Performed By: #### C P, CDP, LIP ####[address] , [place] [address])[phone] Director: Ray Arceo MD Abs.Imm.Granulocyte 0.07 k/uL Normal 0.00-0.30 [facility] Comment on above: Performed By: #### C P, CDP, LIP ####[address] , [place] [address])[phone] Director: Ray Arceo MD Abs.Neutrophil (Seg) 8.22 k/uL High 1.50-8.10 [facility] Comment on above: Performed By: #### C P, CDP, LIP ####[address] , [place] [address])[phone] Director: Ray Arceo MD Basophils/100 WBC (Bld) 1 % Normal 0-2 [facility] Comment on above: Performed By: #### C P, CDP, LIP ####[address] , [place] [address])[phone] Director: Ray Arceo MD Eosinophils (Bld) [#/Vol] 0.08 10*3/uL Normal 0.00-0.44 [facility] Comment on above: Performed By: #### C P, CDP, LIP ####[address] , [place] [address])[phone] Director: Ray Arceo MD Eosinophils/100 WBC (Bld) 1 % Normal 1-4 [facility] Comment on above: Performed By: #### C P, CDP, LIP ####[address] , [place] [address])[phone] Director: Ray Arceo MD Erythrocyte distribution width (RBC) [Ratio] 12.5 % Normal 11.8-14.4 [facility] Comment on above: Performed By: #### C P, CDP, LIP ####[address] [place] [address] Lab Director: Ray Arceo MD Hematocrit (Bld) [Volume fraction] 41.4 % Normal 36.3-47.1 [facility] Comment on above: Performed By: #### C P, CDP, LIP ####[address] , [facility]83 Lab Director: Ray Arceo MD Hemoglobin (Bld) [Mass/Vol] 14.1 g/dL Normal 11.9-15.1 [facility] Comment on above: Performed By: #### C P, CDP, LIP ####[address] , [facility]83 Lab Director: Ray Arceo MD Immature granulocytes/100 WBC (Bld) 1 % High 0 [facility] Comment on above: Performed By: #### C P, CDP, LIP ####[address] , [facility]83 Lab Director: Ray Arceo MD Lymphocytes (Bld) [#/Vol] 3.06 10*3/uL Normal 1.10-3.70 [facility] Comment on above: Performed By: #### C P, CDP, LIP ####[address] , [place] [address])[phone] Director: Ray Arceo MD Lymphocytes/100 WBC (Bld) 25 % Normal 24-43 [facility] Comment on above: Performed By: #### C P, CDP, LIP ####[address] , [place] 8635183 Lab Director: Ray Arceo MD MCH (RBC) [Entitic mass] 30.3 pg Normal 25.2-33.5 [facility] Comment on above: Performed By: #### C P, CDP, LIP ####[address] , [place] 6111383 Lab Director: Ray Arceo MD MCHC (RBC) [Mass/Vol] 34.1 g/dL Normal 28.4-34.8 [facility] Comment on above: Performed By: #### C P, CDP, LIP ####[address] [place] [address] Lab Director: Ray Arceo MD MCV (RBC) [Entitic vol] 89.0 fL Normal 82.6-102.9 [facility] Comment on above: Performed By: #### C P, CDP, LIP ####[address] , [facility]83 lab Director: Ray Arceo MD Monocytes (Bld) [#/Vol] 0.54 10*3/uL Normal 0.10-1.20 [facility] Comment on above: Performed By: #### C P, CDP, LIP ####[address] , [facility]83 lab Director: Ray Arceo MD Monocytes/100 WBC (Bld) 5 % Normal 3-12 [facility] Comment on above: Performed By: #### C P, CDP, LIP ####[address] , [place] 0458783 Lab Director: Ray Arceo MD Neutrophil (Seg) 67 % High 36-65 [facility] Comment on above: Performed By: #### C P, CDP, LIP ####[address] , [place] 4516583 Lab Director: Ray Arceo MD NRBC Automated 0.0 per 100 WBC Normal 0.0 [facility] Comment on above: Performed By: #### C P, CDP, LIP ####[address] , [facility]83 Lab Director: Ray Arceo MD Platelet mean volume (Bld) [Entitic vol] 11.3 fL Normal 8.1-13.5 [facility] Comment on above: Performed By: #### C P, CDP, LIP ####[address] , [place] 6801283 Lab Director: Ray Arceo MD Platelets (Bld) [#/Vol] 306 10*3/uL Normal 138-453 [facility] Comment on above: Performed By: #### C P, CDP, LIP ####[address] [place] [address] Lab Director: Ray Arceo MD RBC (Bld) [#/Vol] 4.65 10*6/uL Normal 3.95-5.11 [facility] Comment on above: Performed By: #### C P, CDP, LIP ####[address] [place] [address] Lab Director: Ray Arceo MD WBC (Bld) [#/Vol] 12.0 10*3/uL High 3.5-11.3 [facility] Comment on above: Performed By: #### C P, CDP, LIP ####[address] [place] [address] Lab Director: Ray Arceo MD Comp Metabolic Profon 2023 Albumin [Mass/Vol] 4.2 g/dL Normal 3.5-5.2 [facility] Comment on above: Performed By: #### C P, CDP, LIP ####[address] , [place] 3967983 Lab Director: Ray Arceo MD Albumin/Glob Ratio 1.1 Normal 1.0-2.5 [facility] Comment on above: Performed By: #### C P, CDP, LIP ####[address] [place] [address] lab Director: Ray Arceo MD Alkaline Phos 104 U/L Normal 35-104 [facility] Comment on above: Performed By: #### C P, CDP, LIP ####[address] [place] [address] lab Director: Ray Arceo MD ALT [Catalytic activity/Vol] 41 U/L High 5-33 [facility] Comment on above: Performed By: #### C P, CDP, LIP ####[address] [place] [address] lab Director: Ray Arceo MD Anion gap [Moles/Vol] 14 mmol/L Normal 9-17 [facility] Comment on above: Performed By: #### C P, CDP, LIP ####[address] [place] [address] lab Director: Ray Arceo MD AST [Catalytic activity/Vol] 35 U/L High <32 [facility] Comment on above: Performed By: #### C P, CDP, LIP ####[address] , [place] 3813983 lab Director: Ray Arceo MD Bilirubin [Mass/Vol] 0.3 mg/dL Normal 0.3-1.2 [facility] Comment on above: Performed By: #### C P, CDP, LIP ####[address] , [place] 1128183 lab Director: Ray Arceo MD BUN/CRE Ratio 11 Normal 9-20 [facility] Comment on above: Performed By: #### C P, CDP, LIP ####[address] [place] [address] lab Director: Ray Arceo MD Calcium [Mass/Vol] 9.3 mg/dL Normal 8.6-10.4 [facility] Comment on above: Performed By: #### C P, CDP, LIP ####[facility] [place] , [place] 3116483 Lab Director: Ray Arceo MD Chloride [Moles/Vol] 94 mmol/L Low 98-107 [facility] Comment on above: Performed By: #### C P, CDP, LIP ####[facility] [place] , [place] 3945783 lab Director: Ray Arceo MD CO2 [Moles/Vol] 24 mmol/L Normal 20-[address] [facility] Comment on above: Performed By: #### C P, CDP, LIP ####[address] , [place] 9628583 lab Director: Ray Arceo MD Creatinine [Mass/Vol] 0.7 mg/dL Normal 0.5-0.9 [facility] Comment on above: Performed By: #### C P, CDP, LIP ####[address] , [place] 4898183 lab Director: Ray Arceo MD GFR/1.73 sq M.predicted among non-blacks MDRD (S/P/Bld) [Vol rate/Area] mL/min/{1.73_m2} Normal >60 [facility] Comment on above: Result Comment: Thes e results are not intended for use in patients <18 years of age.eGFR results are calculated without a race factor using the 2020 CKD-EPI equation.Careful clinical correlation is recommended, particularly when comparing to results calculated using previous equations.The CKD-EPI equation is less accurate in patients with extremes of muscle mass, extra-renal metabolism of creatine, excessive creatine ingestion, or following therapy that affects renal tubular secretion. Performed By: #### C P, CDP, LIP ####[address] , [place] [id number] lab Director: Ray Arceo MD Glucose [Mass/Vol] 260 mg/dL High 70-99 [facility] Comment on above: Performed By: #### C P, CDP, LIP ####[address] , [place] 2029283 Lab Director: Ray Arceo MD Potassium [Moles/Vol] 4.0 mmol/L Normal 3.7-5.3 [facility] Comment on above: Performed By: #### C P, CDP, LIP ####[address] , [place] 9594483 Lab Director: Ray Arceo MD Protein [Mass/Vol] 7.9 g/dL Normal 6.4-8.3 [facility] Comment on above: Performed By: #### C P, CDP, LIP ####[address] , [place] 5628783 Lab Director: Ray Arceo MD Sodium [Moles/Vol] 132 mmol/L Low 135-144 [facility] Comment on above: Performed By: #### C P, CDP, LIP ####[address] , [place] 3476583 Lab Director: Ray Arceo MD Urea nitrogen [Mass/Vol] 8 mg/dL Normal 6-20 [facility] Comment on above: Performed By: #### C P, CDP, LIP ####[address] , [place] 3592383 Lab Director: Ray Arceo MD Lipaseon 01-13-2024 Lipase [Catalytic activity/Vol] 70 U/L High 13-60 [facility] Comment on above: Performed By: #### C P, CDP, LIP ####[address] [place] [address] Lab Director: Ray Arceo MD BMPon 01-04-2024 Anion gap [Moles/Vol] 12 mmol/L 9 - 17 mmol/L [facility] Calcium [Mass/Vol] 9.5 mg/dL 8.6 - 10. 4 mg/dL [facility] Chloride [Moles/Vol] 101 mmol/L 98 - 10 7 mmol/L [facility] CO2 [Moles/Vol] 23 mmol/L 20 - 31 mmol/L [facility] Creatinine [Mass/Vol] 0.6 mg/dL 0.5 - 0.9 mg/dL [facility] GFR/1.73 sq M.predicted MDRD (S/P/Bld) [Vol rate/Area] - PINF [facility] Comment on above: These results are not intended for use in patients <18 years of age. eGFR results are calculated without a race factor using the 2020 CKD-EPI equation. Careful clinical correlation is recommended, particularly when comparing to results calculated using previous equations. The CKD-EPI equation is less accurate in patients with extremes of muscle mass, extra-renal metabolism of creatine, excessive creatine ingestion, or following therapy that affects renal tubular secretion. Glucose [Mass/Vol] 201 mg/dL High 70 - 99 mg/dL [facility] Interpretation and review of laboratory results Abnormal [facility] Potassium [Moles/Vol] 4.0 mmol/L 3.7 - 5.3 mmol/L [facility] Sodium [Moles/Vol] 136 mmol/L 135 - 144 mmol/L [facility] Urea nitrogen [Mass/Vol] 6 mg/dL 6 - 20 mg/dL [facility] Urea nitrogen/Creatinine [Mass ratio] 10 mg/mg 9 - 20 [facility] Basic Metabolic Profon 01-03 Anion gap [Moles/Vol] 12 mmol/L Normal - [facility] Comment on above: Performed By: #### B PRITI, CDP ####[facility] [place] [address] Lab Director: Ray Arceo MD BUN/CRE Ratio 10 Normal - [facility] Comment on above: Performed By: #### B PRITI, CDP ####[facility] [place] [address] Lab Director: Ray Arceo MD Calcium [Mass/Vol] 9.5 mg/dL Normal 8.6-10.4 [facility] Comment on above: Performed By: #### B PRITI, CDP ####[address] , [place] 5481083 Lab Director: Ray Arceo MD Chloride [Moles/Vol] 101 mmol/L Normal 98-107 [facility] Comment on above: Performed By: #### B PRTII, CDP ####[facility] [place] , [place] 6674283 Lab Director: Ray Arceo MD CO2 [Moles/Vol] 23 mmol/L Normal 20-[address] [facility] Comment on above: Performed By: #### B PRITI, CDP ####[address] , [place] 2355583 lab Director: Ray Arceo MD Creatinine [Mass/Vol] 0.6 mg/dL Normal 0.5-0.9 [facility] Comment on above: Performed By: #### B PRITI, CDP ####[address] , [place] 7715283 lab Director: Ray Arceo MD GFR/1.73 sq M.predicted among non-blacks MDRD (S/P/Bld) [Vol rate/Area] mL/min/{1.73_m2} Normal >60 [facility] Comment on above: Result Comment: Thes e results are not intended for use in patients <18 years of age.eGFR results are calculated without a race factor using the 2020 CKD-EPI equation.Careful clinical correlation is recommended, particularly when comparing to results calculated using previous equations.The CKD-EPI equation is less accurate in patients with extremes of muscle mass, extra-renal metabolism of creatine, excessive creatine ingestion, or following therapy that affects renal tubular secretion. Performed By: #### B PRITI, CDP ####[facility] [place] [address] Lab Director: Ray Arceo MD Glucose [Mass/Vol] 201 mg/dL High 70-99 [facility] Comment on above: Performed By: #### B PRITI, CDP ####[address] , [place] 5188083 Lab Director: Ray Arceo MD Potassium [Moles/Vol] 4.0 mmol/L Normal 3.7-5.3 [facility] Comment on above: Performed By: #### B MP, CDP ####[address] , [place] [id number] Lab Director: Ray Arceo MD Sodium [Moles/Vol] 136 mmol/L Normal 135-144 [facility] Comment on above: Performed By: #### B PRITI, CDP ####[address] , [place] 0680383 Lab Director: Ray Arceo MD Urea nitrogen [Mass/Vol] 6 mg/dL Normal 6-20 [facility] Comment on above: Performed By: #### B PRITI, CDP ####[address] , [place] 0968183 Lab Director: Ray Arceo MD CBC with Auto Differentialon 01-04-2024 Basophils (Bld) [#/Vol] 0.04 10*3/uL [facility] Basophils/100 WBC (Bld) 0 % 0 - 2 % B [facility] Eosinophils (Bld) [#/Vol] 0.07 10*3/uL [facility] Eosinophils/100 WBC (Bld) 1 % 1 - 4 % [facility] Erythrocyte distribution width (RBC) [Ratio] 12.8 % 11.8 - 14.4 % [facility] Hematocrit (Bld) [Volume fraction] 41.9 % 36.3 - 47.1 % [facility] Hemoglobin (Bld) [Mass/Vol] 14.3 g/dL 11.9 - 15.1 g/dL [facility] Immature granulocytes (Bld) [#/Vol] 0.04 10*3/uL [facility] Immature granulocytes/100 WBC (Bld) 0 % 0 [facility] Interpretation and review of laboratory results Abnormal [facility] Lymphocytes/100 WBC (Bld) 28 % 24 - 43 % [facility] Lymphocytes/100 WBC (Bld) 3.31 % [facility] MCH (RBC) [Entitic mass] 30.5 pg 25.2 - 33.5 pg [facility] MCHC (RBC) [Mass/Vol] 34.1 g/dL 28.4 - 34.8 g/dL [facility] MCV (RBC) [Entitic vol] 89.3 fL 82.6 - 102.9 fL [facility] Monocytes/100 WBC (Bld) 5 % 3 - 12 % [facility] Monocytes/100 WBC (Bld) 0.61 % [facility] Neutrophils/100 WBC (Bld) 66 % High 36 - 65 % [facility] Nucleated RBC/100 WBC (Bld) [Ratio] 0.0 % 0.0 per 100 WBC [facility] Platelet mean volume (Bld) [Entitic vol] 10.8 fL 8.1 - 13.5 fL [facility] Platelets (Bld) [#/Vol] 320 10*3/uL [facility] RBC (Bld) [#/Vol] 4.69 10*6/uL 3.95 - 5.1 1 m/uL [facility] Segmented neutrophils/100 WBC (Bld) 7.85 % [facility] WBC other (Bld) [#/Vol] 11.9 High B [facility] CBC with Diffon 01-04-2024 Abs. Basophil 0.04 k/uL Normal 0.00-0.20 [facility] Comment on above: Performed By: #### B PRITI, CDP ####[facility] [place] [address] lab Director: Ray Arceo MD Abs.Imm.Granulocyte 0.04 k/uL Normal 0.00-0.30 [facility] Comment on above: Performed By: #### B MP, CDP ####[address] [place] [address] Lab Director: Ray Arceo MD Abs.Neutrophil (Seg) 7.85 k/uL Normal 1.50-8.10 [facility] Comment on above: Performed By: #### B MP, CDP ####[address] [place] [address] Lab Director: Ray Arceo MD Basophils/100 WBC (Bld) 0 % Normal 0-2 [facility] Comment on above: Performed By: #### B MP, CDP ####[address] , [place] 9[address]83 Lab Director: Ray Arceo MD Eosinophils (Bld) [#/Vol] 0.07 10*3/uL Normal 0.00-0.44 [facility] Comment on above: Performed By: #### B MP, CDP ####[address] [place] [address] Lab Director: Ray Arceo MD Eosinophils/100 WBC (Bld) 1 % Normal 1-4 [facility] Comment on above: Performed By: #### B MP, CDP ####[address] , [place] [id number] Lab Director: Ray Arceo MD Erythrocyte distribution width (RBC) [Ratio] 12.8 % Normal 11.8-14.4 [facility] Comment on above: Performed By: #### B MP, CDP ####[address] [place] [address]([facility])[phone] Director: Ray Arceo MD Hematocrit (Bld) [Volume fraction] 41.9 % Normal 36.3-47.1 [facility] Comment on above: Performed By: #### B MP, CDP ####[address] [place] [address] Lab Director: Ray Arceo MD Hemoglobin (Bld) [Mass/Vol] 14.3 g/dL Normal 11.9-15.1 [facility] Comment on above: Performed By: #### B PRITI, CDP ####[address] , [place] [id number] Lab Director: Ray Arceo MD Immature granulocytes/100 WBC (Bld) 0 % Normal 0 [facility] Comment on above: Performed By: #### B PRITI, CDP ####[address] , [place] [id number] Lab Director: Ray Arceo MD Lymphocytes (Bld) [#/Vol] 3.31 10*3/uL Normal 1.10-3.70 [facility] Comment on above: Performed By: #### B PRITI, CDP ####[address] , [place] [id number] Lab Director: Ray Arceo MD Lymphocytes/100 WBC (Bld) 28 % Normal 24-43 [facility] Comment on above: Performed By: #### B PRITI, CDP ####[address] [place] [address] Lab Director: Ray Arceo MD MCH (RBC) [Entitic mass] 30.5 pg Normal 25.2-33.5 [facility] Comment on above: Performed By: #### B MP, CDP ####[address] , [place] [id number] Lab Director: Ray Arceo MD MCHC (RBC) [Mass/Vol] 34.1 g/dL Normal 28.4-34.8 [facility] Comment on above: Performed By: #### B PRITI, CDP ####[address] , [place] [id number] Lab Director: Ray Arceo MD MCV (RBC) [Entitic vol] 89.3 fL Normal 82.6-102.9 [facility] Comment on above: Performed By: #### B MP, CDP ####[address] , [place] [id number] Lab Director: Ray Arceo MD Monocytes (Bld) [#/Vol] 0.61 10*3/uL Normal 0.10-1.20 [facility] Comment on above: Performed By: #### B MP, CDP ####[address] [place] [address] Lab Director: Ray Arceo MD Monocytes/100 WBC (Bld) 5 % Normal 3-12 [facility] Comment on above: Performed By: #### B PRITI, CDP ####[address] [place] [address] Lab Director: Ray Arceo MD Neutrophil (Seg) 66 % High 36-65 [facility] Comment on above: Performed By: #### B PRITI, CDP ####[address] [place] [address] Lab Director: Ray Arceo MD NRBC Automated 0.0 per 100 WBC Normal 0.0 [facility] Comment on above: Performed By: #### B PRITI, CDP ####[address] , [place] [address])[phone] Director: Ray Arceo MD Platelet mean volume (Bld) [Entitic vol] 10.8 fL Normal 8.1-13.5 [facility] Comment on above: Performed By: #### B MP, CDP ####[address] , [place] [id number] Lab Director: Ray Arceo MD Platelets (Bld) [#/Vol] 320 10*3/uL Normal 138-453 [facility] Comment on above: Performed By: #### B MP, CDP ####[facility] [place] , [place] 7[address]4083 lab Director: Ray Arceo MD RBC (Bld) [#/Vol] 4.69 10*6/uL Normal 3.95-5.11 [facility] Comment on above: Performed By: #### B PRITI, CDP ####[facility] [place] , [place] 365[address]83 lab Director: Ray Arceo MD WBC (Bld) [#/Vol] 11.9 10*3/uL High 3.5-11.3 [facility] Comment on above: Performed By: #### B PRITI, CDP ####[facility] [place] , [place] [id number] lab Director: Ray Arceo MD COVID-19, Rapidon 01-04-2024 SARS-CoV-2 (COVID-19) RdRp gene ABRAHAM+probe Ql (Resp) Not detected Not Detected [facility] Comment on above: Rapid NAAT: The specimen is NEGATIVE for SARS-CoV-2, the novel coronavirus associated with COVID-19. The ID NOW COVID-19 assay is designed to detect the virus that causes COVID-19 in patients with signs and symptoms of infection who are suspected of COVID-19. An individual without symptoms of COVID-19 and who is not shedding SARS-CoV-2 virus would expect to have a negative (not detected) result in this assay. Negative results should be treated as presumptive and, if inconsistent with clinical signs and symptoms or necessary for patient management, should be tested with an alternative molecular assay. Negative results do not preclude SARS-CoV-2 infection and should not be used as the sole basis for patient management decisions. Fact sheet for Healthcare Providers: https://www.fda.gov/media/872347/download Fact sheet for Patients: https://www.fda.gov/media/007333/download Methodology: Isothermal Nucleic Acid Amplification Specimen Description .[facility] Flu A/B Ag Detectionon 01-03 Flu A Ag Detection Negative Normal NEG [facility] Comment on above: Result Comment: for Influenza A Antigen Performed By: #### F LUABA ####[facility] [place] [address] Lab Director: Ray Arceo MD Flu B Ag Detection Negative Normal NEG [facility] Comment on above: Result Comment: for Influenza B Antigen. Performed By: #### F LUABA ####[facility] [place] [address] lab Director: Ray Arceo MD Rapid influenza A/B antigens on 01-04-2024 FLUAV Ag Ql (Unsp spec) Negative NEGATIVE B ON [facility] Comment on above: for Influenza A Anti gen FLUBV Ag Ql (Unsp spec) Negative NEGATIVE B ON [facility] Comment on above: for Influenza B Anti gen. BON [facility] [id number] 01-04-2024 SARS-CoV-2 (COVID-19) RNA ABRAHAM+probe Ql (Unsp spec) Not detected Normal NOTDET [facility] Comment on above: Result Comment: Rapi d NAAT: The specimen is NEGATIVE for SARS-CoV-2, the novel coronavirus associated with COVID-19.The ID NOW COVID-19 assay is designed to detect the virus that causes COVID-19 in patients with signs and symptoms of infection who are suspected of COVID-19.An individual without symptoms of COVID-19 and who is not shedding SARS-CoV-2 virus would expect to have a negative (not detected) result in this assay.Negative results should be treated as presumptive and, if inconsistent with clinical signs and symptoms or necessary for patient management,should be tested with an alternative molecular assay. Negative results do not preclude SARS-CoV-2 infection andshould not be used as the sole basis for patient management decisions.Fact sheet for Healthcare Providers: https://www.fda.gov/media/196130/downloadFact sheet for Patients: https://www.fda.gov/media/981304/downloadMethodology: Isothermal Nucleic Acid Amplification Performed By: #### C OVRB ####[facility] [place] [address] Lab Director: Ray Arceo MD Cult, Bloodon 12-29-2023 Cult, Blood Specimen Description .BLOOD Special Requests RT HAND 10 ML Culture NO GROWTH 5 DAYS Report Status FINAL 12/29/2023 [facility] Comment on above: Performed By: #### B CUL2 ####[address] [place], [place] [id number] Lab Director: Ray Arceo MD Cult,Bloodon 12-29-2023 Cult,Blood Specimen Description .BLOOD Special Requests L HAND 6 ML Culture NO GROWTH 5 DAYS Report Status FINAL 12/29/2023 [facility] Comment on above: Performed By: #### B C ####[address] [place] [address] Lab Director: Ray Arceo MD Cult,Urineon 12-26-2023 Cult,Urine Specimen Description .CLEAN CATCH URINE Culture NO SIGNIFICANT GROWTH Report Status FINAL 12/26/2023 [facility] Comment on above: Performed By: #### U RC ####[id number] [place] [address] Lab Director: Rishabh Mendieta, [address] [place] [address] Lab Director: Ray Arceo MD CBC with Diffon 12-25-2023 Abs. Basophil 0.04 k/uL Normal 0.00-0.20 [facility] Comment on above: Performed By: #### C DP, CMPX ####[address] [place] [address] Lab Director: Ray Arceo MD Abs.Imm.Granulocyte 0.03 k/uL Normal 0.00-0.30 [facility] Comment on above: Performed By: #### C DP, CMPX ####[address] [place], [place] [address]18[address]83 Lab Director: Ray Arceo MD Abs.Neutrophil (Seg) 4.28 k/uL Normal 1.50-8.10 [facility] Comment on above: Performed By: #### C DP, CMPX ####[address] , [place] [address] Lab Director: Ray Arceo MD Basophils/100 WBC (Bld) 1 % Normal 0-2 [facility] Comment on above: Performed By: #### C DP, CMPX ####[address] , [place] [address] Lab Director: Ray Arceo MD Eosinophils (Bld) [#/Vol] 0.13 10*3/uL Normal 0.00-0.44 [facility] Comment on above: Performed By: #### C DP, CMPX ####[address] , [place] [address] Lab Director: Ray Arceo MD Eosinophils/100 WBC (Bld) 2 % Normal 1-4 [facility] Comment on above: Performed By: #### C DP, CMPX ####[address] , [facility]83 Lab Director: Ray Arceo MD Erythrocyte distribution width (RBC) [Ratio] 12.9 % Normal 11.8-14.4 [facility] Comment on above: Performed By: #### C DP, CMPX ####[address] , [facility]83[facility])[phone] Director: Ray Arceo MD Hematocrit (Bld) [Volume fraction] 40.1 % Normal 36.3-47.1 [facility] Comment on above: Performed By: #### C DP, CMPX ####[address] , [place] 5776183 Lab Director: Ray Arceo MD Hemoglobin (Bld) [Mass/Vol] 13.3 g/dL Normal 11.9-15.1 [facility] Comment on above: Performed By: #### C DP, CMPX ####[address] [place] [address] [facility] Director: Ray Arceo MD Immature granulocytes/100 WBC (Bld) 0 % Normal 0 [facility] Comment on above: Performed By: #### C DP, CMPX ####[address] , [facility]83[facility])[phone] Director: Ray Arceo MD Lymphocytes (Bld) [#/Vol] 3.45 10*3/uL Normal 1.10-3.70 [facility] Comment on above: Performed By: #### C DP, CMPX ####[address] [place] [address] [facility] Director: Ray Arceo MD Lymphocytes/100 WBC (Bld) 41 % Normal 24-43 [facility] Comment on above: Performed By: #### C DP, CMPX ####[address] [place] [address] Lab Director: Ray Arceo MD MCH (RBC) [Entitic mass] 29.9 pg Normal 25.2-33.5 [facility] Comment on above: Performed By: #### C DP, CMPX ####[address] , [facility]83[facility])[phone] Director: Ray Arceo MD MCHC (RBC) [Mass/Vol] 33.2 g/dL Normal 28.4-34.8 [facility] Comment on above: Performed By: #### C DP, CMPX ####[address] , [place] 3806383 Lab Director: Ray Arceo MD MCV (RBC) [Entitic vol] 90.1 fL Normal 82.6-102.9 [facility] Comment on above: Performed By: #### C DP, CMPX ####[address] [place] [address] Lab Director: Ray Arceo MD Monocytes (Bld) [#/Vol] 0.53 10*3/uL Normal 0.10-1.20 [facility] Comment on above: Performed By: #### C DP, CMPX ####[address] , [facility]83 Lab Director: Ray Arceo MD Monocytes/100 WBC (Bld) 6 % Normal 3-12 [facility] Comment on above: Performed By: #### C DP, CMPX ####[address] , [place] [address])[phone] Director: Ray Arceo MD Neutrophil (Seg) 50 % Normal 36-65 [facility] Comment on above: Performed By: #### C DP, CMPX ####[address] , [facility]83[facility])[phone] Director: Ray Arceo MD NRBC Automated 0.0 per 100 WBC Normal 0.0 [facility] Comment on above: Performed By: #### C DP, CMPX ####[address] , [facility]83[facility])[phone] Director: Ray Arceo MD Platelet mean volume (Bld) [Entitic vol] 10.6 fL Normal 8.1-13.5 [facility] Comment on above: Performed By: #### C DP, CMPX ####[address] [place] [address] Lab Director: Ray Arceo MD Platelets (Bld) [#/Vol] 273 10*3/uL Normal 138-453 [facility] Comment on above: Performed By: #### C DP, CMPX ####[address] , [place] 859[address]83 Lab Director: Ray Arceo MD RBC (Bld) [#/Vol] 4.45 10*6/uL Normal 3.95-5.11 [facility] Comment on above: Performed By: #### C DP, CMPX ####[facility] [place] , [place] 7400783 Lab Director: Ray Arceo MD WBC (Bld) [#/Vol] 8.5 10*3/uL Normal 3.5-11.3 [facility] Comment on above: Performed By: #### C DP, CMPX ####[address] , [place] 4472783 Lab Director: Ray Arceo MD Comp Metabolic Pr/rfx MGon 0 12-25-2023 Albumin [Mass/Vol] 3.9 g/dL Normal 3.5-5.2 [facility] Comment on above: Performed By: #### C DP, CMPX ####[address] , [place] 6333183 Lab Director: Ray Arceo MD Albumin/Glob Ratio 1.1 Normal 1.0-2.5 [facility] Comment on above: Performed By: #### C DP, CMPX ####[address] [place] [address] Lab Director: Ray Arceo MD Alkaline Phos 99 U/L Normal 35-104 [facility] Comment on above: Performed By: #### C DP, CMPX ####[address] [place] [address] Lab Director: Ray Arceo MD ALT [Catalytic activity/Vol] 58 U/L High 5-33 [facility] Comment on above: Performed By: #### C DP, CMPX ####[address] , [place] [phone] Lab Director: Ray Arceo MD Anion gap [Moles/Vol] 13 mmol/L Normal 9-17 [facility] Comment on above: Performed By: #### C DP, CMPX ####[address] , [place] 8414183 Lab Director: Ray Arceo MD AST [Catalytic activity/Vol] 92 U/L High <32 [facility] Comment on above: Performed By: #### C DP, CMPX ####[address] , [place] 5484383 Lab Director: Ray Arceo MD Bilirubin [Mass/Vol] 0.6 mg/dL Normal 0.3-1.2 [facility] Comment on above: Performed By: #### C DP, CMPX ####[address] , [place] 2012983 Lab Director: Ray Arceo MD BUN/CRE Ratio 13 Normal 9-20 [facility] Comment on above: Performed By: #### C DP, CMPX ####[address] , [place] [phone] Lab Director: Ray Arceo MD Calcium [Mass/Vol] 8.8 mg/dL Normal 8.6-10.4 [facility] Comment on above: Performed By: #### C DP, CMPX ####[address] , [place] 5443783 Lab Director: Ray Arceo MD Chloride [Moles/Vol] 102 mmol/L Normal 98-107 [facility] Comment on above: Performed By: #### C DP, CMPX ####[address] [place] [address] Lab Director: Ray Arceo MD CO2 [Moles/Vol] 23 mmol/L Normal 20-[address] [facility] Comment on above: Performed By: #### C DP, CMPX ####[address] , [place] 9542583 lab Director: Ray Arceo MD Creatinine [Mass/Vol] 0.6 mg/dL Normal 0.5-0.9 [facility] Comment on above: Performed By: #### C DP, CMPX ####[address] , [place] 9549783 Lab Director: Ray Arceo MD GFR/1.73 sq M.predicted among non-blacks MDRD (S/P/Bld) [Vol rate/Area] mL/min/{1.73_m2} Normal >60 [facility] Comment on above: Result Comment: Thes e results are not intended for use in patients <18 years of age.eGFR results are calculated without a race factor using the 2020 CKD-EPI equation.Careful clinical correlation is recommended, particularly when comparing to results calculated using previous equations.The CKD-EPI equation is less accurate in patients with extremes of muscle mass, extra-renal metabolism of creatine, excessive creatine ingestion, or following therapy that affects renal tubular secretion. Performed By: #### C DP, CMPX ####[address] , [place] [phone] Lab Director: Ray Arceo MD Glucose [Mass/Vol] 201 mg/dL High 70-99 [facility] Comment on above: Performed By: #### C DP, CMPX ####[address] , [place] 6458383 Lab Director: Ray Arceo MD Potassium [Moles/Vol] 3.8 mmol/L Normal 3.7-5.3 [facility] Comment on above: Performed By: #### C DP, CMPX ####[address] [place] [address] lab Director: Ray Arceo MD Protein [Mass/Vol] 7.4 g/dL Normal 6.4-8.3 [facility] Comment on above: Performed By: #### C DP, CMPX ####[address] [place] [address]([facility])[phone] Director: Ray Arceo MD Sodium [Moles/Vol] 138 mmol/L Normal 135-144 [facility] Comment on above: Performed By: #### C DP, CMPX ####[address] [place] [address]([facility])[phone] Director: Ray Arceo MD Urea nitrogen [Mass/Vol] 8 mg/dL Normal 6-20 [facility] Comment on above: Performed By: #### C DP, CMPX ####[address] [place] [address]([facility])[phone] Director: Ray Arceo MD CBC with Diffon 12-24-2023 Abs. Basophil 0.06 k/uL Normal 0.00-0.20 [facility] Comment on above: Performed By: #### C P, CDP, MG ####[address] [place] [address]([facility])[phone] Director: Ray Arceo MD Abs.Imm.Granulocyte 0.04 k/uL Normal 0.00-0.30 [facility] Comment on above: Performed By: #### C P, CDP, MG ####[address] , [place] 2928383 Lab Director: Ray Arceo MD Abs.Neutrophil (Seg) 6.98 k/uL Normal 1.50-8.10 [facility] Comment on above: Performed By: #### C P, CDP, MG ####[address] , [place] 7642683 Lab Director: Ray Arceo MD Basophils/100 WBC (Bld) 1 % Normal 0-2 M [facility] Comment on above: Performed By: #### C P, CDP, MG ####[address] [place] [phone] Director: Ray Arceo MD Eosinophils (Bld) [#/Vol] 0.11 10*3/uL Normal 0.00-0.44 [facility] Comment on above: Performed By: #### C P, CDP, MG ####[address] , [place] 8760483 Lab Director: Ray Arceo MD Eosinophils/100 WBC (Bld) 1 % Normal 1-4 [facility] Comment on above: Performed By: #### C P, CDP, MG ####[address] , [place] 9117183 [facility] Director: Ray Arceo MD Erythrocyte distribution width (RBC) [Ratio] 12.6 % Normal 11.8-14.4 [facility] Comment on above: Performed By: #### C P, CDP, MG ####[address] , [facility]83 [facility] Director: Ray Arceo MD Hematocrit (Bld) [Volume fraction] 44.6 % Normal 36.3-47.1 [facility] Comment on above: Performed By: #### C P, CDP, MG ####[address] , [place] 2807983 Lab Director: Ray Arceo MD Hemoglobin (Bld) [Mass/Vol] 15.3 g/dL High 11.9-15.1 [facility] Comment on above: Performed By: #### C P, CDP, MG ####[address] , [place] 7091083 Lab Director: Ray Arceo MD Immature granulocytes/100 WBC (Bld) 0 % Normal 0 [facility] Comment on above: Performed By: #### C P, CDP, MG ####[address] , [place] 3242383 Lab Director: Ray Arceo MD Lymphocytes (Bld) [#/Vol] 3.82 10*3/uL High 1.10-3.70 [facility] Comment on above: Performed By: #### C P, CDP, MG ####[address] , [place] 4905883 Lab Director: Ray Arceo MD Lymphocytes/100 WBC (Bld) 33 % Normal 24-43 [facility] Comment on above: Performed By: #### C P, CDP, MG ####[address] , [facility]83 lab Director: Ray Arceo MD MCH (RBC) [Entitic mass] 30.5 pg Normal 25.2-33.5 [facility] Comment on above: Performed By: #### C P, CDP, MG ####[address] , [facility]83 lab Director: Ray Arceo MD MCHC (RBC) [Mass/Vol] 34.3 g/dL Normal 28.4-34.8 [facility] Comment on above: Performed By: #### C P, CDP, MG ####[address] , [facility]39([facility])[phone] Director: Ray Arceo MD MCV (RBC) [Entitic vol] 88.8 fL Normal 82.6-102.9 [facility] Comment on above: Performed By: #### C P, CDP, MG ####[address] , [place] 0125183 Lab Director: Ray Arceo MD Monocytes (Bld) [#/Vol] 0.57 10*3/uL Normal 0.10-1.20 [facility] Comment on above: Performed By: #### C P, CDP, MG ####[address] [place] [address] Lab Director: Ray Arceo MD Monocytes/100 WBC (Bld) 5 % Normal 3-12 [facility] Comment on above: Performed By: #### C P, CDP, MG ####[address] , [place] [address] Lab Director: Ray Arceo MD Neutrophil (Seg) 60 % Normal 36-65 [facility] Comment on above: Performed By: #### C P, CDP, MG ####[address] , [place] [address] Lab Director: Ray Arceo MD NRBC Automated 0.0 per 100 WBC Normal 0.0 [facility] Comment on above: Performed By: #### C P, CDP, MG ####[address] , [facility]83 Lab Director: Ray Arceo MD Platelet mean volume (Bld) [Entitic vol] 10.4 fL Normal 8.1-13.5 [facility] Comment on above: Performed By: #### C P, CDP, MG ####[address] , [facility]83 Lab Director: Ray Arceo MD Platelets (Bld) [#/Vol] 340 10*3/uL Normal 138-453 [facility] Comment on above: Performed By: #### C P, CDP, MG ####[address] , [facility]83[facility])[phone] Director: Ray Arceo MD RBC (Bld) [#/Vol] 5.02 10*6/uL Normal 3.95-5.11 [facility] Comment on above: Performed By: #### C P, CDP, MG ####[address] , [place] 7032583 Lab Director: Ray Arceo MD WBC (Bld) [#/Vol] 11.6 10*3/uL High 3.5-11.3 [facility] Comment on above: Performed By: #### C P, CDP, MG ####[address] [place] [address] lab Director: Ray Arceo MD CT ABDOMEN PELVIS W IV CONTR [place] 12-24-2023 CT ABDOMEN PELVIS W IV CONTRAST Normal [facility] Comp Metabolic Profon 2023 Albumin [Mass/Vol] 4.2 g/dL Normal 3.5-5.2 [facility] Comment on above: Performed By: #### C P, CDP, MG ####[address] [place] [address] lab Director: Ray Arceo MD Albumin/Glob Ratio 0.9 Low 1.0-2.5 [facility] Comment on above: Performed By: #### C P, CDP, MG ####[address] , [place] 2175783 lab Director: Ray Arceo MD Alkaline Phos 110 U/L High 35-104 [facility] Comment on above: Performed By: #### C P, CDP, MG ####[address] , [place] 3842483 lab Director: Ray Arceo MD ALT [Catalytic activity/Vol] 72 U/L High 5-33 [facility] Comment on above: Performed By: #### C P, CDP, MG ####[address] , [place] 0227183 lab Director: Ray Arceo MD Anion gap [Moles/Vol] 17 mmol/L Normal 9-17 [facility] Comment on above: Performed By: #### C P, CDP, MG ####[address] [place] [address] lab Director: Ray Arceo MD AST [Catalytic activity/Vol] 126 U/L High <32 [facility] Comment on above: Performed By: #### C P, CDP, MG ####[address] , [place] 2482183 Lab Director: Ray Arceo MD Bilirubin [Mass/Vol] 0.5 mg/dL Normal 0.3-1.2 [facility] Comment on above: Performed By: #### C P, CDP, MG ####[address] , [place] 8208583 lab Director: Ray Arceo MD BUN/CRE Ratio 15 Normal 9-20 [facility] Comment on above: Performed By: #### C P, CDP, MG ####[address] , [place] 5335183 lab Director: Ray Arceo MD Calcium [Mass/Vol] 9.8 mg/dL Normal 8.6-10.4 [facility] Comment on above: Performed By: #### C P, CDP, MG ####[address] , [place] [phone] lab Director: Ray Arceo MD Chloride [Moles/Vol] 98 mmol/L Normal 98-107 [facility] Comment on above: Performed By: #### C P, CDP, MG ####[address] , [place] 165[address]83 lab Director: Ray Arceo MD CO2 [Moles/Vol] 21 mmol/L Normal 20-[address] [facility] Comment on above: Performed By: #### C P, CDP, MG ####[address] [place] [address] lab Director: Ray Arceo MD Creatinine [Mass/Vol] 0.6 mg/dL Normal 0.5-0.9 [facility] Comment on above: Performed By: #### C P, CDP, MG ####[address] [place] [address] lab Director: Ray Arceo MD GFR/1.73 sq M.predicted among non-blacks MDRD (S/P/Bld) [Vol rate/Area] mL/min/{1.73_m2} Normal >60 [facility] Comment on above: Result Comment: Thes e results are not intended for use in patients <18 years of age.eGFR results are calculated without a race factor using the 2020 CKD-EPI equation.Careful clinical correlation is recommended, particularly when comparing to results calculated using previous equations.The CKD-EPI equation is less accurate in patients with extremes of muscle mass, extra-renal metabolism of creatine, excessive creatine ingestion, or following therapy that affects renal tubular secretion. Performed By: #### C P, CDP, MG ####[address] [place] [address] lab Director: Ray Arceo MD Glucose [Mass/Vol] 221 mg/dL High 70-99 [facility] Comment on above: Performed By: #### C P, CDP, MG ####[address] [place] [address] lab Director: Ray Arceo MD Potassium [Moles/Vol] 3.9 mmol/L Normal 3.7-5.3 [facility] Comment on above: Performed By: #### C P, CDP, MG ####[address] [place] [address] lab Director: Ray Arceo MD Protein [Mass/Vol] 8.7 g/dL High 6.4-8.3 [facility] Comment on above: Performed By: #### C P, CDP, MG ####[address] [place] [address] lab Director: Ray Arceo MD Sodium [Moles/Vol] 136 mmol/L Normal 135-144 [facility] Comment on above: Performed By: #### C P, CDP, MG ####[address] 0249783 Lab Director: Ray Arceo MD Urea nitrogen [Mass/Vol] 9 mg/dL Normal 6-20 [facility] Comment on above: Performed By: #### C P, CDP, MG ####[address] [address] , [place] [id number] lab Director: Ray Arceo MD Lactic Acidon 12-24-2023 Lactate [Moles/Vol] 2.6 mmol/L High 0.5-2.2 [facility] Comment on above: Performed By: #### L ACTIC ####[address] , [place] [id number] lab Director: Ray Arceo MD Magnesiumon 12-24-2023 Magnesium [Mass/Vol] 2.0 mg/dL Normal 1.6-2.6 [facility] Comment on above: Performed By: #### C P, CDP, MG ####[address] , [place] [id number] Lab Director: Ray Arceo MD Urinalysis w/ Microon 2023 Bacteria TRACE Abnormal NONE [facility] Comment on above: Performed By: #### U AMIC ####[address] , [place] [id number] Lab Director: Ray Arceo MD Bilirubin, SemiQt,Ur Negative Normal NEG [facility] Comment on above: Performed By: #### U AMIC ####[address] , [place] 999[address]83 Lab Director: Ray Arceo MD Blood, Urine Negative Normal NEG [facility] Comment on above: Performed By: #### U AMIC ####[address] , [place] [id number] Lab Director: Ray Arceo MD Clarity (U) Clear Normal CLEAR [facility] Comment on above: Performed By: #### U AMIC ####[address] , [place] [id number] Lab Director: Ray Arceo MD Color (U) Yellow Normal YEL [facility] Comment on above: Performed By: #### U AMIC ####[address] , [place] [id number] Lab Director: Ray Arceo MD Epithelial cells LM Ql (Urine sed) 0 TO 2 Normal 0-25 [facility] Comment on above: Performed By: #### U AMIC ####[address] [place] [address] Lab Director: Ray Arceo MD Glucose Ql (U) 1+ mg/dL Abnormal NEG [facility] Comment on above: Performed By: #### U AMIC ####[address] [place] [address] Lab Director: Ray Arceo MD Ketones Ql (U) Negative Normal NEG [facility] Comment on above: Performed By: #### U AMIC ####[address] [place] [address] Lab Director: Ray Arceo MD Leukocyte esterase Test strip Ql (U) Negative Normal NEG [facility] Comment on above: Performed By: #### U AMIC ####[address] [place] [address] Lab Director: Ray Arceo MD Mucus Strands 1+ Abnormal NONE [facility] Comment on above: Performed By: #### U AMIC ####[address] , [place] 811[address]83 Lab Director: Ray Arceo MD Nitrite,Ur Negative Normal NEG [facility] Comment on above: Performed By: #### U AMIC ####[address] [id number] Lab Director: Ray Arceo MD PH,Ur 6.5 Normal 5.0-9.0 [facility] Comment on above: Performed By: #### U AMIC ####[address] , [place] 015[address]83 Lab Director: Ray Arceo MD Protein Ql (U) TRACE Abnormal NEG [facility] Comment on above: Performed By: #### U AMIC ####[address] [place] [address] lab Director: Ray Arceo MD Spec. [place],Ur 1.020 Normal 1.010-1.020 [facility] Comment on above: Performed By: #### U AMIC ####[address] , [place] [id number] Lab Director: Ray Arceo MD Urine RBC's 0 TO 2 Normal 0-2 [facility] Comment on above: Performed By: #### U AMIC ####[address] , [place] [address])[phone] Director: Ray Arceo MD Urine WBC's 0 TO 2 Normal 0-5 [facility] Comment on above: Performed By: #### U AMIC ####[address] , [place] [address])[phone] Director: Ray Arceo MD Urobilinogen,Ur Normal Normal 0.0-1.[address] [facility] Comment on above: Performed By: #### U AMIC ####[address] [place], [place] [address] Lab Director: Ray Arceo MD Cult,Urineon 11-26-2023 Cult,Urine Susceptible [facility] Comment on above: Performed By: #### U RC ####[address] [address] Lab Director: Rishabh Mendieta, [facility] Lab[address] [place] [address] [place] [address] lab Director: Ray Arceo MD CBC with Auto Differentialon 11-23-2023 Basophils (Bld) [#/Vol] 0.06 10*3/uL [facility] Basophils/100 WBC (Bld) 1 % 0 - 2 % [facility] Eosinophils (Bld) [#/Vol] 0.13 10*3/uL [facility] Eosinophils/100 WBC (Bld) 1 % 1 - 4 % [facility] Erythrocyte distribution width (RBC) [Ratio] 12.5 % 11.8 - 14.4 % [facility] Hematocrit (Bld) [Volume fraction] 45.2 % 36.3 - 47.1 % [facility] Hemoglobin (Bld) [Mass/Vol] 15.2 g/dL High 11.9 - 15.1 g/dL [facility] Immature granulocytes (Bld) [#/Vol] 0.04 10*3/uL [facility] Immature granulocytes/100 WBC (Bld) 0 % 0 [facility] Interpretation and review of laboratory results Abnormal [facility] Lymphocytes/100 WBC (Bld) 37 % 24 - 43 % [facility] Lymphocytes/100 WBC (Bld) 3.97 % High [facility] MCH (RBC) [Entitic mass] 30.2 pg 25.2 - 33.5 pg [facility] MCHC (RBC) [Mass/Vol] 33.6 g/dL 28.4 - 34.8 g/dL [facility] MCV (RBC) [Entitic vol] 89.9 fL 82.6 - 102.9 fL [facility] Monocytes/100 WBC (Bld) 5 % 3 - 12 % [facility] Monocytes/100 WBC (Bld) 0.54 % [facility] Neutrophils/100 WBC (Bld) 56 % 36 - 65 % [facility] Nucleated RBC/100 WBC (Bld) [Ratio] 0.0 % 0.0 per 100 WBC [facility] Platelet mean volume (Bld) [Entitic vol] 10.7 fL 8.1 - 13.5 fL [facility] Platelets (Bld) [#/Vol] 328 10*3/uL [facility] RBC (Bld) [#/Vol] 5.03 10*6/uL 3.95 - 5.1 1 m/uL [facility] Segmented neutrophils/100 WBC (Bld) 6.12 % [facility] WBC other (Bld) [#/Vol] 10.9 B ON [facility] CBC with Diffon 11-23-2023 Abs. Basophil 0.06 k/uL Normal 0.00-0.20 [facility] Comment on above: Performed By: #### C VENKAT CP, LIP ####[address] [place] [address] Lab Director: Ray Arceo MD Abs.Imm.Granulocyte 0.04 k/uL Normal 0.00-0.30 [facility] Comment on above: Performed By: #### C ANA ROBLEDO, LIP ####[address] [place] [address] Lab Director: Ray Arceo MD Abs.Neutrophil (Seg) 6.12 k/uL Normal 1.50-8.10 [facility] Comment on above: Performed By: #### C VENKAT CP, LIP ####[address] [place] [address] Lab Director: Ray Arceo MD Basophils/100 WBC (Bld) 1 % Normal 0-2 M [facility] Comment on above: Performed By: #### C DP CP, LIP ####[address] [place] [id number] Lab Director: Ray Arceo MD Eosinophils (Bld) [#/Vol] 0.13 10*3/uL Normal 0.00-0.44 [facility] Comment on above: Performed By: #### C DP, CP, LIP ####[address] , [place] [address])[phone] Director: Ray Arceo MD Eosinophils/100 WBC (Bld) 1 % Normal 1-4 [facility] Comment on above: Performed By: #### C DP, CP, LIP ####[address] , [place] [address])[phone] Director: Ray Arceo MD Erythrocyte distribution width (RBC) [Ratio] 12.5 % Normal 11.8-14.4 [facility] Comment on above: Performed By: #### C DP, CP, LIP ####[address] [place], [place] [address])[phone] Director: Ray Arceo MD Hematocrit (Bld) [Volume fraction] 45.2 % Normal 36.3-47.1 [facility] Comment on above: Performed By: #### C DP, CP, LIP ####[address] , [place] [address])[phone] Director: Ray Arceo MD Hemoglobin (Bld) [Mass/Vol] 15.2 g/dL High 11.9-15.1 [facility] Comment on above: Performed By: #### C DP, CP, LIP ####[address] , [place] [address])[phone] Director: Ray Arceo MD Immature granulocytes/100 WBC (Bld) 0 % Normal 0 [facility] Comment on above: Performed By: #### C DP, CP, LIP ####[address] , [facility]83 Lab Director: Ray Arceo MD Lymphocytes (Bld) [#/Vol] 3.97 10*3/uL High 1.10-3.70 [facility] Comment on above: Performed By: #### C DP, CP, LIP ####[address] , [facility]38([facility])[phone] Director: Ray Arceo MD Lymphocytes/100 WBC (Bld) 37 % Normal 24-43 [facility] Comment on above: Performed By: #### C DP, CP, LIP ####[address] , [facility]93([facility])[phone] Director: Ray Arceo MD MCH (RBC) [Entitic mass] 30.2 pg Normal 25.2-33.5 [facility] Comment on above: Performed By: #### C DP, CP, LIP ####[address] , [facility]44([facility])[phone] Director: Ray Arceo MD MCHC (RBC) [Mass/Vol] 33.6 g/dL Normal 28.4-34.8 [facility] Comment on above: Performed By: #### C DP, CP, LIP ####[address] , [facility]57([facility])[phone] Director: Ray Arceo MD MCV (RBC) [Entitic vol] 89.9 fL Normal 82.6-102.9 [facility] Comment on above: Performed By: #### C DP, CP, LIP ####[address] , [facility]46([facility])[phone] Director: Ray Arceo MD Monocytes (Bld) [#/Vol] 0.54 10*3/uL Normal 0.10-1.20 [facility] Comment on above: Performed By: #### C DP, CP, LIP ####[address] , [place] [id number] Lab Director: Ray Arceo MD Monocytes/100 WBC (Bld) 5 % Normal 3-12 M [facility] Comment on above: Performed By: #### C DP, CP, LIP ####[address] [place] [address] Lab Director: Ray Arceo MD Neutrophil (Seg) 56 % Normal 36-65 [facility] Comment on above: Performed By: #### C DP, CP, LIP ####[address] [place] [address] Lab Director: Ray Arceo MD NRBC Automated 0.0 per 100 WBC Normal 0.0 [facility] Comment on above: Performed By: #### C DP, CP, LIP ####[address] [place] [address] Lab Director: Ray Arceo MD Platelet mean volume (Bld) [Entitic vol] 10.7 fL Normal 8.1-13.5 [facility] Comment on above: Performed By: #### C DP CP, LIP ####[address] , [place] [phone] Director: Ray Arceo MD Platelets (Bld) [#/Vol] 328 10*3/uL Normal 138-453 [facility] Comment on above: Performed By: #### C DP CP, LIP ####[address] , [place] [phone] Director: Ray Arceo MD RBC (Bld) [#/Vol] 5.03 10*6/uL Normal 3.95-5.11 [facility] Comment on above: Performed By: #### C DP, CP, LIP ####[address] , [place] [phone] Director: Ray Arceo MD WBC (Bld) [#/Vol] 10.9 10*3/uL Normal 3.5-11.3 [facility] Comment on above: Performed By: #### C DP, CP, LIP ####[address] [place] [address] lab Director: Ray Arceo MD [facility] 11-23-2023 Albumin [Mass/Vol] 4.3 g/dL 3.5 - 5.2 g/dL [facility] Albumin/Globulin [Mass ratio] 1.3 {ratio} 1.0 - 2.5 [facility] ALP [Catalytic activity/Vol] 113 U/L High 35 - 104 U/L [facility] ALT [Catalytic activity/Vol] 69 U/L High 5 - 33 U/L [facility] Anion gap [Moles/Vol] 12 mmol/L 9 - 17 mmol/L [facility] AST [Catalytic activity/Vol] 81 U/L High NINF - 32 U/L [facility] Bilirubin [Mass/Vol] 0.3 mg/dL 0.3 - 1 .2 mg/dL [facility] Calcium [Mass/Vol] 9.5 mg/dL 8.6 - 10. 4 mg/dL [facility] Chloride [Moles/Vol] 98 mmol/L 98 - 10 7 mmol/L [facility] CO2 [Moles/Vol] 24 mmol/L 20 - 31 mmol/L [facility] Creatinine [Mass/Vol] 0.7 mg/dL 0.5 - 0.9 mg/dL [facility] GFR/1.73 sq M.predicted MDRD (S/P/Bld) [Vol rate/Area] - PINF [facility] Comment on above: These results are not intended for use in patients <18 years of age. eGFR results are calculated without a race factor using the 2020 CKD-EPI equation. Careful clinical correlation is recommended, particularly when comparing to results calculated using previous equations. The CKD-EPI equation is less accurate in patients with extremes of muscle mass, extra-renal metabolism of creatine, excessive creatine ingestion, or following therapy that affects renal tubular secretion. Glucose [Mass/Vol] 175 mg/dL High 70 - 99 mg/dL [facility] Potassium [Moles/Vol] 3.9 mmol/L 3.7 - 5.3 mmol/L [facility] Protein [Mass/Vol] 7.5 g/dL 6.4 - 8.3 g/dL [facility] Sodium [Moles/Vol] 134 mmol/L Low 135 - 144 mmol/L [facility] Urea nitrogen [Mass/Vol] 9 mg/dL 6 - 20 mg/dL [facility] Urea nitrogen/Creatinine [Mass ratio] 13 mg/mg 9 - 20 [facility] CT ABDOMEN PELVIS W IV CONTR [place] 11-23-2023 CT ABDOMEN PELVIS W IV CONTRAST Normal [facility] CT Abdomen and Pelvis W cont rast [place] 11-23-2023 Hepatomegaly with steatosis. No acute abnormality identified. [facility] EXAMINATION: CT OF THE ABDOMEN AND PELVIS WITH CONTRAST 11/23/2023 10:48 pm TECHNIQUE: CT of the abdomen and pelvis was performed with the administration of intravenous contrast. Multiplanar reformatted images are provided for review. Automated exposure control, iterative reconstruction, and/or weight based adjustment of the mA/kV was utilized to reduce the radiation dose to as low as reasonably achievable. COMPARISON: 08/01/2023 HISTORY: ORDERING SYSTEM PROVIDED HISTORY: [facility] abd pain TECHNOLOGIST PROVIDED HISTORY: [facility] abd pain Decision Support Exception - unselect if not a suspected or confirmed emergency medical condition->Emergenc y Medical Condition (MA) FINDINGS: Lower Chest: No acute findings. Organs: Hepatomegaly with steatosis. No inflammatory change identified in the gallbladder fossa. The pancreas, spleen, adrenals and kidneys reveal no acute findings. GI/Bowel: There is no bowel dilatation or wall thickening identified. Normal appendix. Pelvis: No acute findings. Peritoneum/Retroper itoneum: No free air or free fluid. The aorta is normal in caliber. The visceral branches are patent. No lymphadenopathy. Bones/Soft Tissues: No abnormality identified. 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 *Unless otherwise specified, incidental findings do not require dedicated imaging follow-up. [facility] August Marinelli MD - 11/23/2023 EXAMINATION: CT OF THE ABDOMEN AND PELVIS WITH CONTRAST 11/23/2023 10:48 pm TECHNIQUE: CT of the abdomen and pelvis was performed with the administration of intravenous contrast. Multiplanar reformatted images are provided for review. Automated exposure control, iterative reconstruction, and/or weight based adjustment of the mA/kV was utilized to reduce the radiation dose to as low as reasonably achievable. COMPARISON: 08/01/2023 HISTORY: ORDERING SYSTEM PROVIDED HISTORY: [facility] abd pain TECHNOLOGIST PROVIDED HISTORY: [facility] abd pain Decision Support Exception - unselect if not a suspected or confirmed emergency medical condition->Emergenc y Medical Condition (MA) FINDINGS: Lower Chest: No acute findings. Organs: Hepatomegaly with steatosis. No inflammatory change identified in the gallbladder fossa. The pancreas, spleen, adrenals and kidneys reveal no acute findings. GI/Bowel: There is no bowel dilatation or wall thickening identified. Normal appendix. Pelvis: No acute findings. Peritoneum/Retroper itoneum: No free air or free fluid. The aorta is normal in caliber. The visceral branches are patent. No lymphadenopathy. Bones/Soft Tissues: No abnormality identified. 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 *Unless otherwise specified, incidental findings do not require dedicated imaging follow-up. IMPRESSION: Hepatomegaly with steatosis. No acute abnormality identified. [facility] Radiology Study observation (narrative) [facility] CT Abdomen and Pelvis W cont rast IVOrdered By: August Marinelli on 11-23-2023 [facility] Work Phone: Comp Metabolic Profon 2023 Albumin [Mass/Vol] 4.3 g/dL Normal 3.5-5.2 [facility] Comment on above: Performed By: #### C ANA ROBLEDO, LIP ####[facility] [place] [address] lab Director: Ray Arceo MD Albumin/Glob Ratio 1.3 Normal 1.0-2.5 [facility] Comment on above: Performed By: #### C VENKAT, CP, LIP ####[facility] [place] [address] lab Director: Ray Arceo MD Alkaline Phos 113 U/L High 35-104 [facility] Comment on above: Performed By: #### C DP, CP, LIP ####[facility] [place] [address] lab Director: Ray Arceo MD ALT [Catalytic activity/Vol] 69 U/L High 5-33 [facility] Comment on above: Performed By: #### C DP, CP, LIP ####[address] , [place] [id number] Lab Director: Ray Arceo MD Anion gap [Moles/Vol] 12 mmol/L Normal 9-17 [facility] Comment on above: Performed By: #### C DP, CP, LIP ####[address] , [place] [id number] Lab Director: Ray Arceo MD AST [Catalytic activity/Vol] 81 U/L High <32 [facility] Comment on above: Performed By: #### C DP, CP, LIP ####[address] , [place] 2602383 Lab Director: Ray Acreo MD Bilirubin [Mass/Vol] 0.3 mg/dL Normal 0.3-1.2 [facility] Comment on above: Performed By: #### C DP, CP, LIP ####[address] [place] [address] Lab Director: Ray Arceo MD BUN/CRE Ratio 13 Normal 9-20 [facility] Comment on above: Performed By: #### C DP, CP, LIP ####[address] [place] [address] Lab Director: Ray Arceo MD Calcium [Mass/Vol] 9.5 mg/dL Normal 8.6-10.4 [facility] Comment on above: Performed By: #### C DP, CP, LIP ####[address] , [place] 3037[address] Lab Director: Ray Arceo MD Chloride [Moles/Vol] 98 mmol/L Normal 98-107 [facility] Comment on above: Performed By: #### C DP, CP, LIP ####[facility] [place] , [place] 4[address] Lab Director: Ray Arceo MD CO2 [Moles/Vol] 24 mmol/L Normal 20-[address] [facility] Comment on above: Performed By: #### C VENKAT CP, LIP ####[address] , [place] 0444383 Lab Director: Ray Arceo MD Creatinine [Mass/Vol] 0.7 mg/dL Normal 0.5-0.9 [facility] Comment on above: Performed By: #### C VENKAT CP, LIP ####[address] , [place] 196[address]83 Lab Director: Ray Arceo MD GFR/1.73 sq M.predicted among non-blacks MDRD (S/P/Bld) [Vol rate/Area] mL/min/{1.73_m2} Normal >60 [facility] Comment on above: Result Comment: Thes e results are not intended for use in patients <18 years of age.eGFR results are calculated without a race factor using the 2020 CKD-EPI equation.Careful clinical correlation is recommended, particularly when comparing to results calculated using previous equations.The CKD-EPI equation is less accurate in patients with extremes of muscle mass, extra-renal metabolism of creatine, excessive creatine ingestion, or following therapy that affects renal tubular secretion. Performed By: #### C ANA ROBLEDO, LIP ####[address] , [place] [id number] Lab Director: Ray Arceo MD Glucose [Mass/Vol] 175 mg/dL High 70-99 [facility] Comment on above: Performed By: #### C VENKAT CP, LIP ####[address] , [place] 767[address]83 Lab Director: Ray Arceo MD Potassium [Moles/Vol] 3.9 mmol/L Normal 3.7-5.3 [facility] Comment on above: Performed By: #### C VENKAT CP, LIP ####[facility] [place] , [place] [address] Lab Director: Ray Arceo MD Protein [Mass/Vol] 7.5 g/dL Normal 6.4-8.3 [facility] Comment on above: Performed By: #### C DP, CP, LIP ####[facility] [place] , [place] 8504[address] Lab Director: Ray Arceo MD Sodium [Moles/Vol] 134 mmol/L Low 135-144 [facility] Comment on above: Performed By: #### C DP CP, LIP ####[address] , [place] 2432483 Lab Director: Ray Arceo MD Urea nitrogen [Mass/Vol] 9 mg/dL Normal 6-20 [facility] Comment on above: Performed By: #### C DP, CP, LIP ####[address] , [place] [address] Lab Director: Ray Arceo MD Lipaseon 11-23-2023 Lipase [Catalytic activity/Vol] 79 U/L High 13 - 60 U/L [facility] Lipase [Catalytic activity/Vol] 79 U/L High 13-60 [facility] Comment on above: Performed By: #### C DP, CP, LIP ####[address] , [place] [id number] Lab Director: Ray Arceo MD No Panel Informationon 11-22 Interpretation and review of laboratory results Abnormal [facility] Urinalysis w/ Microon 2023 Bacteria TRACE Abnormal NONE [facility] Comment on above: Performed By: #### U AMIC ####[address] , [place] [id number] Lab Director: Ray Arceo MD Bilirubin, SemiQt,Ur Negative Normal NEG [facility] Comment on above: Performed By: #### U AMIC ####[address] , [place] [id number] Lab Director: Ray Arceo MD Blood, Urine Negative Normal NEG [facility] Comment on above: Performed By: #### U AMIC ####[address] , [place] 869[address]83 Lab Director: Ray Arceo MD Clarity (U) Clear Normal CLEAR [facility] Comment on above: Performed By: #### U AMIC ####[address] , [facility]83 Lab Director: Ray Arceo MD Color (U) Yellow Normal YEL [facility] Comment on above: Performed By: #### U AMIC ####[address] , [facility]83 Lab Director: Ray Arceo MD Epithelial cells LM Ql (Urine sed) None Normal 0-25 [facility] Comment on above: Performed By: #### U AMIC ####[address] , [facility]83 Lab Director: Ray Arceo MD Glucose Ql (U) Negative Normal NEG [facility] Comment on above: Performed By: #### U AMIC ####[address] , [facility]83 Lab Director: Ray Arceo MD Ketones Ql (U) Negative Normal NEG [facility] Comment on above: Performed By: #### U AMIC ####[address] [place] [address] Lab Director: Ray Arceo MD Leukocyte esterase Test strip Ql (U) Negative Normal NEG [facility] Comment on above: Performed By: #### U AMIC ####[address] , [place] 701[address]83 Lab Director: Ray Arceo MD Nitrite,Ur Negative Normal NEG [facility] Comment on above: Performed By: #### U AMIC ####[address] , [place] 2423383 lab Director: Ray Arceo MD PH,Ur 6.0 Normal 5.0-9.0 [facility] Comment on above: Performed By: #### U AMIC ####[address] [place] [address] lab Director: Ray Arceo MD Protein Ql (U) Negative Normal NEG [facility] Comment on above: Performed By: #### U AMIC ####[address] [place] [address] lab Director: Ray Arceo MD Spec. [place],Ur 1.025 High 1.010-1.020 [facility] Comment on above: Performed By: #### U AMIC ####[address] [place] [address] lab Director: Ray Arceo MD Urine RBC's None Normal 0-2 [facility] Comment on above: Performed By: #### U AMIC ####[address] [place] [address] Lab Director: Ray Arceo MD Urine WBC's None Normal 0-5 [facility] Comment on above: Performed By: #### U AMIC ####[address] [place] [address] lab Director: Ray Arceo MD Urobilinogen,Ur Normal Normal 0.0-1.[address] [facility] Comment on above: Performed By: #### U AMIC ####[address] , [place] [id number] lab Director: Ray Arceo MD Urinalysis with Microscopico n 11-23-2023 Bacteria LM Ql (Urine sed) TRACE Abnormal None [facility] Bilirubin Ql (U) Negative NEGATIVE [facility] Clarity (U) Clear Clear [facility] Color (U) Yellow Yellow [facility] Epithelial cells LM.HPF (Urine sed) [#/Area] None [facility] Glucose Test strip (U) [Mass/Vol] Negative NEGATIVE mg/dL [facility] Hemoglobin Auto test strip Ql (U) Negative NEGATIVE [facility] Interpretation and review of laboratory results Abnormal [facility] Ketones (U) [Mass/Vol] Negative NEGAT SIMA mg/dL [facility] Leukocyte esterase Test strip Ql (U) Negative NEGATIVE [facility] Nitrite Ql (U) Negative NEGATIVE [facility] pH (U) 6.0 [pH] 5.0 - 9.0 [facility] Protein (U) [Mass/Vol] Negative NEGAT SIMA mg/dL [facility] RBC LM.HPF (Urine sed) [#/Area] None [facility] Specific gravity (U) [Rel density] 1.025 High 1.010 - 1.020 [facility] Urobilinogen Qn (U) Normal 0.0 - 1. 0 EU/dL [facility] WBC LM.HPF (Urine sed) [#/Area] None [facility] ED Clinical Summaryon 2023 ED Clinical Summary [address] [address] ED Clinical Summary Person Information Name: Alejandra Swansonelva Mckeon/Ric_Terence Age: 28 Years : 1995 Sex: Female PCP: Marital Status: Phone: Race: White Ethnicity: Not or Language: [place] Visit Reason: Abdominal pain; abd Acuity: 3 Enc Type: Emergency Med Service: Emergency Medicine Arrival: 11/13/2023 18:52:42 Discharge: 11/14/2023 00:52:00 LOS: 000 06:00 Checkin: 11/13/2023 18:52:42 Checkout: 11/14/2023 00:52:00 Dispo Type: Home or Self Care Address: [address] [place] [phone] Provider Notes: History of Present Illness 28-year-old female?history of?diabetes?present ing with?lower abdominal pain which came on acutely?2 days ago started off with loss of appetite yesterday and this morning she has not been able to eat much?has been feeling bloated?and distended. ?Patient denies any fevers or chills?denies any dysuria frequency urgency?patient has had a total hysterectomy done. ?Describes the pain as a sharp stabbing pain in the right lower quadrant nonradiating associated with severe nausea and vomiting.? Patient claims that she did have a regular bowel movement this morning denies any diarrhea or constipation. ?Presently rates the pain as an 8/10 mainly localized to the right lower quadrant. Review of Systems As reviewed in the HPI. All other systems reviewed are negative or normal. ? ? Physical Exam CONSTITUTIONAL:?No apparent distress, well appearing SKIN:?Warm, dry, no jaundice, hives or petechiae EYES:?Pupils are equally round, extraocular movements intact without nystagmus, clear conjunctiva, non-icteric sclera HENT:?Normocephalic , atraumatic, moist mucus membranes, oropharynx clear without exudates NECK:?Nontender and supple with no nuchal rigidity, no lymphadenopathy, full range of motion PULMONARY:?Clear to auscultation without wheezes, rhonchi, or rales, normal excursion, no accessory muscle use and no stridor CARDIOVASCULAR:?Reg ular rate, rhythm, normal S1 and S2. No appreciated murmurs. Strong radial pulses with intact distal perfusion GASTROINTESTINAL:?S oft, tender right lower quadrant, positive McBurney negative Aquino negative Rovsing's negative psoas no guarding, non-distended, no palpable masses, no rebound or guarding GENITOURINARY:?No costovertebral angle tenderness to palpation LYMPHATICS:?No edema in lower extremities, no lymphadenopathy MUSCULOSKELETAL:?Ex tremities are nontender to palpation and have no gross deformity, no edema, redness, or swelling NEUROLOGIC:?Alert and oriented x 3, GCS 15, normal mentation and speech. Moves all extremities x 4 without motor or sensory deficit, gait is stable without ataxia PSYCHIATRIC:?Normal mood and affect, thought process is clear and linear Diagnosis: 1:Colitis Problems No Problems Documented Smoking Status: Smoking Status 5-9 cigarettes (between 1/4 to 1/2 pack)/day in last 30 days Functional Status: Sensory Deficits: History of Falls: Mobility Assistance Prior to Admission: ADLs: Current Level of Assistance for Self-Care/Mobility: Cognitive Status: Allergies Latex (Rash) penicillin (Hives) Pyridium (Anxiety) Toradol (Shortness of breath) egg-containing compound (Nausea) Laboratory or Other Results This Visit (last charted value for your 11/13/2023 visit) Hematology 11/13/2023 9:24 PM WBC: 11.8 x10 RBC: 4.86 x10 Neutro Auto: 54.5 % -- Normal range between ( 47.2 and 70.8 ) Lymph Auto: 38.8 % -- Normal range between ( 27.2 and 40.8 ) Tillman Auto: 5.1 % -- Normal range between ( 3.7 and 11.9 ) Eos Auto: 1.3 % -- Normal range between ( 0.0 and 5.4 ) Basophil Auto: 0.3 % -- Normal range between ( 0.0 and 1.5 ) Baso Absolute: 0.0 x10 MCV: 87.7 fL -- Normal range between ( 80.0 and 100.0 ) MCHC: 34.5 % -- Normal range between ( 31.0 and 37.0 ) Lymph Absolute: 4.6 x10 Hct: 42.6 % -- Normal range between ( 36.0 and 46.0 ) Tillman Absolute: 0.6 x10 MCH: 30.2 pg -- Normal range between ( 27.0 and 35.0 ) Neutro Absolute: 6.4 x10 Hgb: 14.7 g/dL -- Normal range between ( 12.0 and 16.0 ) Mean Platelet Volume: 8.9 fL -- Normal range between ( 6.7 and 10.6 ) Platelet: 289 x10 Eos Absolute: 0.2 x10 RDW: 13.5 % -- Normal range between ( 11.6 and 14.8 ) Urinalysis 11/13/2023 9:42 PM UA Color: Yellow UA Urobilinogen: Normal mg/dL UA Bili: Negative UA Ketones: Negative mg/dL UA Leukocyte Esterase: Negative UA Nitrite: Negative UA Glucose: Normal mg/dL UA Protein: 30 mg/dL UA Blood: Negative UA Spec Grav: 1.029 -- Normal range between ( 1.003 and 1.035 ) UA pH: 5.5 UA Clarity: Clear UA Source: Clean Catch UA Mucus: Present /LPF UA WBC Quant: 0 /HPF -- Normal range between ( 0 and 5 ) UA RBC Quant: 0 /HPF -- Normal range between ( 0 and 5 ) UA Squepi Cells Quant: <1 /HPF -- Normal range be (more content not included)... Normal [facility] .UA Microscp Aon 11-13-2023 UA Mucus Present Normal Absent [facility] Comment on above: Performed By: #### . Urinalysis Microscopic Auto ####[place] [address] UA RBC Quant 0 /HPF Normal 0-5 [facility] Comment on above: Performed By: #### . Urinalysis Microscopic Auto ####[address] [address] UA Squepi Cells Quant <1 Normal 0-[address] [facility] Comment on above: Performed By: #### . Urinalysis Microscopic Auto ####[address] [address] UA WBC Quant 0 /HPF Normal 0-5 [facility] Comment on above: Performed By: #### . Urinalysis Microscopic Auto ####[place] [id number] .eGFRon 11-13-2023 GFR/1.73 sq M.predicted MDRD (S/P/Bld) [Vol rate/Area] mL/min/{1.73_m2} Normal >=60 [facility] Comment on above: Result Comment: [facility] have implemented the eGFR calculation approach that does not have a coefficient for race and that conforms to the NKF-ASN Task Force Recommendations. Stages of Chronic Kidney Disease GFR Stage 3a Mild to moderate loss of kidney function 59 to 45 Stage 3b Moderate to severe loss of kidney function 44 to 33 Stage 4 Severe loss of kidney function 29 to 15 Stage 5 Kidney failure Less than 15 GFR calculated using the CKD-Epi Creatinine Equation (2020): eGFR = 142 X min(SCr/?, 1)? X max(SCr /?, 1)-1.200 X 0.9938Age X 1.012 [if female] Abbreviations/Units: eGFR (estimated glomerular filtration rate) = mL/min/1.73 m2 SCr (standardized serum creatinine) = mg/dL ? = 0.7 (females) or 0.9 (males) ? = -0.241 (females) or -0.302 (males) min = indicates the minimum of SCr/? or 1 max = indicates the maximum of SCr/? or 1 Age = years Performed By: #### E GFR ####[address] [address] Basic Metabolic Profileon Anion gap [Moles/Vol] 14 mmol/L Normal 7-[address] [facility] Comment on above: Performed By: #### C [id number] ####[address] [address] Calcium [Mass/Vol] 9.5 mg/dL Normal 8.5-10.3 [facility] Comment on above: Performed By: #### C [id number] ####[address] [address] Chloride [Moles/Vol] 104 mmol/L Normal 98-110 [facility] Comment on above: Performed By: #### C [id number] ####[address] [address] CO2 [Moles/Vol] 22 mmol/L Normal 22-32 [facility] Comment on above: Performed By: #### C [id number] ####[address] [address] Creatinine [Mass/Vol] 0.84 mg/dL Normal 0.44-1.[address] [facility] Comment on above: Performed By: #### C [id number] ####[address] [address] Glucose [Mass/Vol] 156 mg/dL High 70-99 [facility] Comment on above: Performed By: #### C [id number] ####[address] [address] Potassium [Moles/Vol] 3.8 mmol/L Normal 3.4-4.[address] [facility] Comment on above: Performed By: #### C [id number] ####[address] [address] Sodium [Moles/Vol] 136 mmol/L Normal 133-142 [facility] Comment on above: Performed By: #### C [id number] ####[address] [address] Urea nitrogen [Mass/Vol] 17 mg/dL Normal 8-26 [facility] Comment on above: Performed By: #### C [id number] ####[address] [address] Urea nitrogen/Creatinine [Mass ratio] 20.2 mg/mg High 10.0-20.0 [facility] Comment on above: Performed By: #### C [id number] ####[address] [address] CBC w/ Diffon 11-13-2023 Erythrocyte distribution width (RBC) [Ratio] 13.5 % Normal 11.6-14.8 [facility] Comment on above: Performed By: #### C BC ####[address] [address] Hematocrit (Bld) [Volume fraction] 42.6 % Normal 36.0-46.0 [facility] Comment on above: Performed By: #### C BC ####[address] [address] Hemoglobin (Bld) [Mass/Vol] 14.7 g/dL Normal 12.0-16.0 [facility] Comment on above: Performed By: #### C BC ####[address] [address] MCH (RBC) [Entitic mass] 30.2 pg Normal 27.0-35.0 [facility] Comment on above: Performed By: #### C BC ####[address] [address] MCHC 34.5 % Normal 31.0-37.0 [facility] Comment on above: Performed By: #### C BC ####[address] [address] MCV (RBC) [Entitic vol] 87.7 fL Normal 80.0-100.0 [facility] Comment on above: Performed By: #### C BC ####[address] [address] Platelet 289 x10*3/mcL Normal 150-450 [facility] Comment on above: Performed By: #### C BC ####[address] [address] Platelet mean volume (Bld) [Entitic vol] 8.9 fL Normal 6.7-10.6 [facility] Comment on above: Performed By: #### C BC ####[address] [address] RBC 4.86 x10*6/mcL Normal 3.80-5.20 [facility] Comment on above: Performed By: #### C BC ####[address] [address] WBC 11.8 x10*3/mcL High 4.5-11.0 [facility] Comment on above: Performed By: #### C BC ####[address] [address] [address] Abdomen Pelvis w/ IV Cont [facility] Abdomen Pelvis w/ IV Contrast CT ABDOMEN/PELVIS WITH IV CONTRAST. INDICATION: Sudden onset right lower quadrant pain this afternoon with emesis x2. Lethargy. COMPARISON: CT abdomen and pelvis 06/10/2023 TECHNIQUE: Contiguous axial images were obtained from the lung bases to the pelvic floor following the intravenous administration of iodinated contrast material. Coronal and sagittal reformations were obtained. FINDINGS: LOWER LUNGS: The visualized lung bases are clear. LIVER/BILIARY TREE: Hepatic steatosis. Hepatomegaly measuring 27.5 cm in craniocaudal dimension. No focal hepatic lesion is identified. No intrahepatic ductal dilatation. GALLBLADDER: The gallbladder is not identified. No radiopaque stone. CBD: Normal caliber. SPLEEN: Normal in size. PANCREAS: No acute findings. No peripancreatic fluid or inflammation. No pancreatic duct dilatation. No discrete mass. ADRENALS: Unremarkable KIDNEYS: No hydronephrosis. No radiopaque calculus. There is an 8 mm hypodense lesion in the lower pole of the left kidney which is too small to characterize but statistically represents a cyst. STOMACH AND BOWEL: Stomach is unremarkable. There are several nondilated fluid-filled loops of small bowel. No bowel wall thickening. APPENDIX: Normal caliber appendix. PERITONEAL CAVITY: No ascites or intraperitoneal free air. No fat stranding. ABDOMINAL WALL: No subcutaneous stranding. No subcutaneous fluid collection. LYMPH NODES: No mesenteric or retroperitoneal lymphadenopathy by CT criteria. ABDOMINAL AORTA: The abdominal aorta is normal in caliber.. PELVIS: The bladder is unremarkable. The uterus is absent. MUSCULOSKELETAL: No suspicious osseous lesion. SOFT TISSUES: [The soft tissues are unremarkable.] IMPRESSION: Normal caliber appendix. There are several nondilated fluid-filled loops of small bowel which may represent nonspecific enteritis. There is no bowel wall thickening. Hepatic steatosis and hepatomegaly. There is an 8 mm hypodense lesion in the lower pole of the left kidney which is too small to characterize but statistically represents a cyst. Radiation Dose Estimate: CTDI(mGy):0.162390 / / / kVp:120.049892 / mAs:0.722564 / / / DLP(mGy-cm):4.98703 0Body Part: Abdomen CTDI(mGy):38.335604 / / / kVp:140.233171 / mAs:180.192722 / / / DLP(mGy-cm):2189.00 0000Body Part: Abdomen Final Dictated by: Yi GREWAL, Keaton Cordova Dictated DT/TM: 11.13.2023 10:19 pm Signed by: Yi GREWAL, Keaton Cordova Signed (Electronic Signature): 11.13.2023 10:26 pm (If Report Is Signed, Electronically Signed in Other Vendor System) Normal [facility] Diff Autoon 11-13-2023 Baso Absolute 0.0 x10*3/mcL Normal 0.0-0.2 [facility] Comment on above: Performed By: #### . Automated Diff ####[address] [address] Basophils/100 WBC (Bld) 0.3 % Normal 0.0-1.5 [facility] Comment on above: Performed By: #### . Automated Diff ####[address] [address] Eos Absolute 0.2 x10*3/mcL Normal 0.0-0.4 [facility] Comment on above: Performed By: #### . Automated Diff ####[address] [address] Eosinophils/100 WBC (Bld) 1.3 % Normal 0.0-5.4 [facility] Comment on above: Performed By: #### . Automated Diff ####[address] [address] Lymph Absolute 4.6 x10*3/mcL Normal 1.0-4.8 [facility] Comment on above: Performed By: #### . Automated Diff ####[address] [address] Lymphocytes/100 WBC (Bld) 38.8 % Normal 27.2-40.8 [facility] Comment on above: Performed By: #### . Automated Diff ####[address] [address] Tillman Absolute 0.6 x10*3/mcL Normal 0.1-1.1 [facility] Comment on above: Performed By: #### . Automated Diff ####[address] [address] Monocytes/100 WBC (Bld) 5.1 % Normal 3.7-11.9 [facility] Comment on above: Performed By: #### . Automated Diff ####[place] [address] [place] [address] Neutro Absolute 6.4 x10*3/mcL Normal 1.8-7.7 [facility] Comment on above: Performed By: #### . Automated Diff ####[place] [address] [place] [address] Neutro Auto 54.5 % Normal 47.2-70.8 [facility] Comment on above: Performed By: #### . Automated Diff ####[place] [address] [place] [address] ED Note-Physicianon 11-13-19 ED Note-Physician Chief Complaint pt to er for lower abd pain and not feeling well has also been vomiting History of Present Illness 28-year-old female history of diabetes presenting with lower abdominal pain which came on acutely 2 days ago started off with loss of appetite yesterday and this morning she has not been able to eat much has been feeling bloated and distended. Patient denies any fevers or chills denies any dysuria frequency urgency patient has had a total hysterectomy done. Describes the pain as a sharp stabbing pain in the right lower quadrant nonradiating associated with severe nausea and vomiting. Patient claims that she did have a regular bowel movement this morning denies any diarrhea or constipation. Presently rates the pain as an 8/10 mainly localized to the right lower quadrant. Review of Systems As reviewed in the HPI. All other systems reviewed are negative or normal. Physical Exam CONSTITUTIONAL: No apparent distress, well appearing SKIN: Warm, dry, no jaundice, hives or petechiae EYES: Pupils are equally round, extraocular movements intact without nystagmus, clear conjunctiva, non-icteric sclera HENT: Normocephalic, atraumatic, moist mucus membranes, oropharynx clear without exudates NECK: Nontender and supple with no nuchal rigidity, no lymphadenopathy, full range of motion PULMONARY: Clear to auscultation without wheezes, rhonchi, or rales, normal excursion, no accessory muscle use and no stridor CARDIOVASCULAR: Regular rate, rhythm, normal S1 and S2. No appreciated murmurs. Strong radial pulses with intact distal perfusion GASTROINTESTINAL: Soft, tender right lower quadrant, positive McBurney negative Aquino negative Rovsing's negative psoas no guarding, non-distended, no palpable masses, no rebound or guarding GENITOURINARY: No costovertebral angle tenderness to palpation LYMPHATICS: No edema in lower extremities, no lymphadenopathy MUSCULOSKELETAL: Extremities are nontender to palpation and have no gross deformity, no edema, redness, or swelling NEUROLOGIC: Alert and oriented x 3, GCS 15, normal mentation and speech. Moves all extremities x 4 without motor or sensory deficit, gait is stable without ataxia PSYCHIATRIC: Normal mood and affect, thought process is clear and linear Vitals & Measurements T: 36.8 ?C (Oral) HR: 105 (Peripheral) RR: 18 BP: 143/112 SpO2: 94% HT: 172.7 cm WT: 113.8 kg (Dosing) Additional Vitals No qualifying data available. Procedure No qualifying data available. ASA Documentation Assessment/Plan 1. Colitis EKG: MDM: 28-year-old female presenting with abdominal pain mainly located right lower quadrant. Patient did seem to be in moderate distress on arrival. Claims that she had regular bowel movements earlier this morning. Patient denies any recent travel hospitalization or immobilization denies any vaginal discharge denies any dysuria frequency urgency has had a total hysterectomy done in the past. Did have moderate tenderness on palpation of the right lower quadrant with a positive McBurney. Patient to get a CT abdomen pelvis and lab work. DIFFERENTIAL DIAGNOSIS: (In no particular order and not limited to following) Acute appendicitis, acute colitis Data and analysis: Patient otherwise appears to be stable and in no apparent distress. Independent History: I discussed the case with patient and patient's relatives who were present at bedside who helped with shared decision making. Independent Clinician: None Labs/Imaging Reviewed: I have independently visualized and interpreted images/labs pertinent positives and negatives as follows: Patient's lab work does show slightly elevated white count 11.[address] abdomen pelvis was positive for nondilated loops of bowel which may represent nonspecific enteritis. Review of Past Medical/External records: Previous DC Summaries/Clinic Notes/Testing Reviewed if available. Notable Findings in MDM section above. I did review patient chart extensively Patient symptoms could be from bacterial enteritis with moderate amount of pain has not had any diarrhea so far but does have moderate amount of nondilated loops of bowel small compatible with acute enteritis. I do feel that the patient may benefit from antibiotics started on Cipro and Flagyl in the ED was also given Pepcid Zofran and morphine for pain. Patient to be discharged on Cipro and Flagyl for next 5 days to follow-up with GI as an outpatient patient to be on a bland diet with bread rice applesauce and toast as an outpatient. Vital signs stable time of discharge. Diagnosis: #1 acute enteritis Disposition: Patient is /discharged home to follow up with PCP in 2-3 days. Orders: ciprofloxacin, 400 mg, IV Piggyback, Soln-IV, Once, infuse over 1 hr, First Dose: 11/13/23 22:37:00 EST, Stop Date: 11/13/23 22:37:00 EST, STAT, Dispense From Location: Cucsien-OPL-PA, Intra-abdominal, 11/13/23 22:37:00 EST famotidine, 20 mg, IV Push, Injection, Once, First Dose: 11/13/23 22:36:00 ES (more content not included)... Normal [facility] Hep Func Panelon 11-13-2023 Albumin [Mass/Vol] 4.2 g/dL Normal 3.2-4.9 [facility] Comment on above: Performed By: #### L IVER ####[address] [address] Alk Phos 91 IU/L Normal 32-91 [facility] Comment on above: Performed By: #### L IVER ####[address] [address] ALT [Catalytic activity/Vol] 62 U/L High 14-54 [facility] Comment on above: Performed By: #### L IVER ####[address] [address] AST [Catalytic activity/Vol] 84 U/L High 15-41 [facility] Comment on above: Performed By: #### L IVER ####[address] [address] Bili Direct 0.1 mg/dL Normal 0.1-0.5 [facility] Comment on above: Performed By: #### L IVER ####[address] [address] Bili Indirect 0.7 mg/dL Normal 0.0-1.0 [facility] Comment on above: Performed By: #### L IVER ####[address] [address] Bili Total 0.8 mg/dL Normal 0.3-1.2 [facility] Comment on above: Performed By: #### L IVER ####[address] [address] Protein [Mass/Vol] 8.1 g/dL Normal 6.5-8.1 [facility] Comment on above: Performed By: #### L IVER ####[address] [address] Lipaseon 11-13-2023 Lipase Lvl 61 IU/L High 22-51 [facility] Comment on above: Performed By: #### L IP ####[address] [address] UA w Culture if Indon 2023 Color (U) Yellow Normal Yellow [facility] Comment on above: Performed By: #### U CI ####[address] [address] Ketones Ql (U) Negative Normal Negative [facility] Comment on above: Performed By: #### U CI ####[address] [address] UA Blood Negative Normal Negative [facility] Comment on above: Performed By: #### U CI ####[address] [address] UA Clarity Clear Normal Clear [facility] Comment on above: Performed By: #### U CI ####[address] [address] UA Glucose Normal Normal Negative [facility] Comment on above: Performed By: #### U CI ####[address] [address] UA Leukocyte Esterase Negative Normal Negative [facility] Comment on above: Performed By: #### U CI ####[address] [address] UA Nitrite Negative Normal Negative [facility] Comment on above: Performed By: #### U CI ####[address] [address] UA pH 5.5 Normal 4.5 - 7.8 [facility] Comment on above: Performed By: #### U CI ####[address] [address] UA Protein 30 mg/dL Abnormal Negative [facility] Comment on above: Performed By: #### U CI ####[address] [address] UA Source Clean Catch Normal [facility] Comment on above: Performed By: #### U CI ####[address] [address] UA Spec Grav 1.029 Normal 1.003-1.035 [facility] Comment on above: Performed By: #### U CI ####[address] [address] UA Urobilinogen Normal Normal 0.2 - 1.0 [facility] Comment on above: Performed By: #### U CI ####[address] [address] Urobilinogen (U) [Mass/Vol] Negative Normal Negative [facility] Comment on above: Performed By: #### U CI ####[address] [address] Basic Metabolic Profon 10-25 Anion gap [Moles/Vol] 15 mmol/L Normal 9-17 [facility] Comment on above: Performed By: #### T LUIS A, CDP, BMP ####[facility] [place] [address] Lab Director: Ray Arceo MD BUN/CRE Ratio 16 Normal 9-20 [facility] Comment on above: Performed By: #### COLLETTE STARR, BMP ####[address] , [place] [id number] lab Director: Ray Arceo MD Calcium [Mass/Vol] 9.7 mg/dL Normal 8.6-10.4 [facility] Comment on above: Performed By: #### COLLETTE STARR, BMP ####[address] , [place] [address] lab Director: Ray Arceo MD Chloride [Moles/Vol] 101 mmol/L Normal 98-107 [facility] Comment on above: Performed By: #### COLLETTE STARR, BMP ####[address] [place] [address] Lab Director: Ray Arceo MD CO2 [Moles/Vol] 21 mmol/L Normal 20-[address] [facility] Comment on above: Performed By: #### COLLETTE STARR, BMP ####[address] , [place] [id number] lab Director: Ray Arceo MD Creatinine [Mass/Vol] 0.7 mg/dL Normal 0.5-0.9 [facility] Comment on above: Performed By: #### COLLETTE STARR, BMP ####[address] [place] [address] lab Director: Ray Arceo MD GFR/1.73 sq M.predicted among non-blacks MDRD (S/P/Bld) [Vol rate/Area] mL/min/{1.73_m2} Normal >60 [facility] Comment on above: Result Comment: Thes e results are not intended for use in patients <18 years of age.eGFR results are calculated without a race factor using the 2020 CKD-EPI equation.Careful clinical correlation is recommended, particularly when comparing to results calculated using previous equations.The CKD-EPI equation is less accurate in patients with extremes of muscle mass, extra-renal metabolism of creatine, excessive creatine ingestion, or following therapy that affects renal tubular secretion. Performed By: #### T COLLETTE GUNN, BMP ####[address] , [place] [phone] Director: Ray Arceo MD Glucose [Mass/Vol] 242 mg/dL High 70-99 [facility] Comment on above: Performed By: #### T COLLETTE GUNN, BMP ####[address] , [place] [phone] Director: Ray Arceo MD Potassium [Moles/Vol] 4.4 mmol/L Normal 3.7-5.3 [facility] Comment on above: Performed By: #### T COLLETTE GUNN, BMP ####[address] , [place] [phone] Director: Ray Arceo MD Sodium [Moles/Vol] 137 mmol/L Normal 135-144 [facility] Comment on above: Performed By: #### COLLETTE STARR, BMP ####[address] , [place] [phone] Director: Ray Arceo MD Urea nitrogen [Mass/Vol] 11 mg/dL Normal 6-20 [facility] Comment on above: Performed By: #### T COLLETTE GUNN, BMP ####[address] , [place] [phone] Director: Ray Arceo MD CBC with Diffon 10-25-2023 Abs. Basophil 0.11 k/uL Normal 0.0-0.2 [facility] Comment on above: Performed By: #### T COLLETTE GUNN, BMP ####[address] [place] [address] Lab Director: Ray Arceo MD Abs.Imm.Granulocyte 0.11 k/uL Normal 0.00-0.30 [facility] Comment on above: Performed By: #### COLLETTE STARR, BMP ####[address] [place] [address] Lab Director: Ray Arceo MD Abs.Neutrophil (Seg) 4.40 k/uL Normal 1.50-8.10 [facility] Comment on above: Performed By: #### COLLETTE STARR, BMP ####[address] [place] [address] Lab Director: Ray Arceo MD Basophils/100 WBC (Bld) 1 % Normal 0-2 [facility] Comment on above: Performed By: #### COLLETTE STARR, BMP ####[address] [place] [phone] Lab Director: Ray Arceo MD Eosinophils (Bld) [#/Vol] 0.33 10*3/uL Normal 0.00-0.44 [facility] Comment on above: Performed By: #### COLLETTE STARR, BMP ####[address] [place] [address] Lab Director: Ray Arceo MD Eosinophils/100 WBC (Bld) 3 % Normal 1-4 [facility] Comment on above: Performed By: #### COLLETTE STARR, BMP ####[address] [place] [address] Lab Director: Ray Arceo MD Immature granulocytes/100 WBC (Bld) 1 % High 0 [facility] Comment on above: Performed By: #### COLLETTE STARR, BMP ####[address] [place] [address] Lab Director: Ray Arceo MD Lymphocytes (Bld) [#/Vol] 5.50 10*3/uL High 1.10-3.70 [facility] Comment on above: Performed By: #### T COLLETTE GUNN, BMP ####[address] , [place] [address])[phone] Director: Ray Arceo MD Lymphocytes/100 WBC (Bld) 50 % High 24-43 [facility] Comment on above: Performed By: #### T COLLETTE GUNN, BMP ####[address] [place] [address] Lab Director: Ray Arceo MD Monocytes (Bld) [#/Vol] 0.55 10*3/uL Normal 0.10-1.20 [facility] Comment on above: Performed By: #### T COLLETTE GUNN, BMP ####[address] , [place] [address])[phone] Director: Ray Arceo MD Monocytes/100 WBC (Bld) 5 % Normal 3-12 M [facility] Comment on above: Performed By: #### T COLLETTE GUNN, BMP ####[address] , [place] [address])[phone] Director: Ray Arceo MD Morphology Kenan (Bld) [Interp] ANISOCYTOSIS Normal [facility] Comment on above: Result Comment: PRES ENT Performed By: #### T COLLETTE GUNN, BMP ####[address] [place] [address] Lab Director: Ray Arceo MD Neutrophil (Seg) 40 % Normal 36-65 [facility] Comment on above: Performed By: #### T COLLETTE GUNN, BMP ####[address] , [place] [id number] Lab Director: Ray Arceo MD Erythrocyte distribution width (RBC) [Ratio] 12.5 % Normal 11.8-14.4 [facility] Comment on above: Performed By: #### T COLLETTE GUNN, BMP ####[address] [place] [address] [facility] Director: Ray Arceo MD Hematocrit (Bld) [Volume fraction] 45.4 % Normal 36.3-47.1 [facility] Comment on above: Performed By: #### T COLLETTE GUNN, BMP ####[address] , [place] [address] [facility] Director: Ray Arceo MD Hemoglobin (Bld) [Mass/Vol] 15.9 g/dL High 11.9-15.1 [facility] Comment on above: Performed By: #### T COLLETTE GUNN, BMP ####[address] , [facility]83 lab Director: Ray Arceo MD MCH (RBC) [Entitic mass] 30.6 pg Normal 25.2-33.5 [facility] Comment on above: Performed By: #### T COLLETTE GUNN, BMP ####[address] , [place] [address] Lab Director: Ray Arceo MD MCHC (RBC) [Mass/Vol] 35.0 g/dL High 28.4-34.8 [facility] Comment on above: Performed By: #### T COLLETTE GUNN, BMP ####[address] , [facility]83 Lab Director: Ray Arceo MD MCV (RBC) [Entitic vol] 87.3 fL Normal 82.6-102.9 M [facility] Comment on above: Performed By: #### T COLLETTE GUNN, BMP ####[address] , [place] [id number] Lab Director: Ray Arceo MD NRBC Automated 0.0 per 100 WBC Normal 0.0 [facility] Comment on above: Performed By: #### T COLLETTE GUNN, BMP ####[address] [place] [address] Lab Director: Ray Arceo MD Platelet mean volume (Bld) [Entitic vol] 10.5 fL Normal 8.1-13.5 [facility] Comment on above: Performed By: #### COLLETTE STARR, BMP ####[address] , [place] [phone] Director: Ray Arceo MD Platelets (Bld) [#/Vol] 373 10*3/uL Normal 138-453 [facility] Comment on above: Performed By: #### COLLETTE STARR, BMP ####[address] [place] [address] Lab Director: Ray Arceo MD RBC (Bld) [#/Vol] 5.20 10*6/uL High 3.95-5.11 [facility] Comment on above: Performed By: #### COLLETTE STARR, BMP ####[address] [place] [address] Lab Director: Ray Arceo MD WBC (Bld) [#/Vol] 11.0 10*3/uL Normal 3.5-11.3 [facility] Comment on above: Performed By: #### COLLETTE STARR, BMP ####[address] , [place] [phone] Director: Ray Arceo MD CT CHEST PULMONARY EMBOLISM W CONTRASTon 10-25-2023 CT CHEST PULMONARY EMBOLISM W CONTRAST Normal [facility] Troponinon 10-25-2023 Troponin, High Sens 7 ng/L Normal 0-14 [facility] Comment on above: Result Comment: High Sensitivity Troponin values cannot be compared with other Troponin methodologies. Performed By: #### COLLETTE STARR, BMP ####[address] [place] [address] lab Director: Ray Arceo MD XR CHEST PORTABLEon 10-25-19 24 XR CHEST PORTABLE Normal [facility] Flu A/B Ag Detectionon 10-14 Flu A Ag Detection Positive Abnormal NEG [facility] Comment on above: Result Comment: for Influenza A Antigen Performed By: #### F LUABA ####[facility] [place] [address] lab Director: Ray Arceo MD Flu B Ag Detection Negative Normal NEG [facility] Comment on above: Result Comment: for Influenza B Antigen. Performed By: #### F LUABA ####[facility] [place] [address] lab Director: Ray Arceo MD [id number] 10-14-2023 SARS-CoV-2 (COVID-19) RNA ABRAHAM+probe Ql (Unsp spec) Not detected Normal NOTDET [facility] Comment on above: Result Comment: Rapi d NAAT: The specimen is NEGATIVE for SARS-CoV-2, the novel coronavirus associated with COVID-19.The ID NOW COVID-19 assay is designed to detect the virus that causes COVID-19 in patients with signs and symptoms of infection who are suspected of COVID-19.An individual without symptoms of COVID-19 and who is not shedding SARS-CoV-2 virus would expect to have a negative (not detected) result in this assay.Negative results should be treated as presumptive and, if inconsistent with clinical signs and symptoms or necessary for patient management,should be tested with an alternative molecular assay. Negative results do not preclude SARS-CoV-2 infection andshould not be used as the sole basis for patient management decisions.Fact sheet for Healthcare Providers: https://www.fda.gov/media/911729/downloadFact sheet for Patients: https://www.fda.gov/media/467087/downloadMethodology: Isothermal Nucleic Acid Amplification Performed By: #### C OVRB ####[facility] [place] [address] lab Director: Ray Arceo MD Flu A/B Ag Detectionon 09-17 Flu A Ag Detection Negative Normal NEG [facility] Comment on above: Result Comment: for Influenza A Antigen Performed By: #### F DALIA ####[facility] [place] , [place] 9395583 lab Director: Ray Arceo MD Flu B Ag Detection Negative Normal NEG [facility] Comment on above: Result Comment: for Influenza B Antigen. Performed By: #### F DALIA ####[facility] [place] [address] lab Director: Ray Arceo MD [id number] 09-17-2023 SARS-CoV-2 (COVID-19) RNA ABRAHAM+probe Ql (Unsp spec) Not detected Normal NOTDET [facility] Comment on above: Result Comment: Rapi d NAAT: The specimen is NEGATIVE for SARS-CoV-2, the novel coronavirus associated with COVID-19.The ID NOW COVID-19 assay is designed to detect the virus that causes COVID-19 in patients with signs and symptoms of infection who are suspected of COVID-19.An individual without symptoms of COVID-19 and who is not shedding SARS-CoV-2 virus would expect to have a negative (not detected) result in this assay.Negative results should be treated as presumptive and, if inconsistent with clinical signs and symptoms or necessary for patient management,should be tested with an alternative molecular assay. Negative results do not preclude SARS-CoV-2 infection andshould not be used as the sole basis for patient management decisions.Fact sheet for Healthcare Providers: https://www.fda.gov/media/864919/downloadFact sheet for Patients: https://www.fda.gov/media/466046/downloadMethodology: Isothermal Nucleic Acid Amplification Performed By: #### C OVRB ####[facility] [place] , [place] [id number] lab Director: Ray Arceo MD XR CHEST (2 VW)on 09-17-2023 XR CHEST (2 VW) Normal [facility] Basic Metabolic Profon 08-03 Anion gap [Moles/Vol] 14 mmol/L Normal 9-17 [facility] Comment on above: Performed By: #### B H, BMP, CDP, MG ####[address] , [place] 9372383 lab Director: Ray Arceo MD BUN/CRE Ratio 20 Normal 9-20 [facility] Comment on above: Performed By: #### B H, BMP, CDP, MG ####[address] , [place] [id number] lab Director: Ray Arceo MD Calcium [Mass/Vol] 10.3 mg/dL Normal 8.6-10.4 [facility] Comment on above: Performed By: #### B H, BMP, CDP, MG ####[address] [place] [address] lab Director: Ray Arceo MD Chloride [Moles/Vol] 98 mmol/L Normal 98-107 [facility] Comment on above: Performed By: #### B H, BMP, CDP, MG ####[address] [place] [address] lab Director: Ray Arceo MD CO2 [Moles/Vol] 22 mmol/L Normal 20-[address] [facility] Comment on above: Performed By: #### B H, BMP, CDP, MG ####[address] , [place] 9640583 lab Director: Ray Arceo MD Creatinine [Mass/Vol] 0.7 mg/dL Normal 0.5-0.9 [facility] Comment on above: Performed By: #### B H, BMP, CDP, MG ####[address] [place] [address] lab Director: Ray Arceo MD GFR/1.73 sq M.predicted among non-blacks MDRD (S/P/Bld) [Vol rate/Area] mL/min/{1.73_m2} Normal >60 [facility] Comment on above: Result Comment: Thes e results are not intended for use in patients <18 years of age.eGFR results are calculated without a race factor using the 2020 CKD-EPI equation.Careful clinical correlation is recommended, particularly when comparing to results calculated using previous equations.The CKD-EPI equation is less accurate in patients with extremes of muscle mass, extra-renal metabolism of creatine, excessive creatine ingestion, or following therapy that affects renal tubular secretion. Performed By: #### B H, BMP, CDP, MG ####[address] , [place] 8652083 Lab Director: Ray Arceo MD Glucose [Mass/Vol] 552 mg/dL Critically high 70-99 [facility] Comment on above: Performed By: #### B H, BMP, CDP, MG ####[address] , [place] 8538483 Lab Director: Ray Arceo MD Potassium [Moles/Vol] 5.3 mmol/L Normal 3.7-5.3 [facility] Comment on above: Performed By: #### B H, BMP, CDP, MG ####[address] , [place] 9089483 Lab Director: Ray Arceo MD Sodium [Moles/Vol] 134 mmol/L Low 135-144 [facility] Comment on above: Performed By: #### B H, BMP, CDP, MG ####[address] , [place] 4220883 Lab Director: Ray Arceo MD Urea nitrogen [Mass/Vol] 14 mg/dL Normal 6-20 [facility] Comment on above: Performed By: #### B H, BMP, CDP, MG ####[address] , [place] 2183683 Lab Director: Ray Arceo MD Beta Hydroxybutyrateon 08-03 Beta Hydroxybutyrate 0.15 mmol/L Normal 0.02-0.27 [facility] Comment on above: Performed By: #### B H, BMP, CDP, MG ####[address] , [place] 9314883 lab Director: Ray Arceo MD CBC with Diffon 08-03-2023 Abs. Basophil 0.04 k/uL Normal 0.00-0.20 [facility] Comment on above: Performed By: #### B H, BMP, CDP, MG ####[address] , [place] 4736183 lab Director: Ray Arceo MD Abs. Eosinophil <0.03 Normal 0.00-0.[address] [facility] Comment on above: Performed By: #### B H, BMP, CDP, MG ####[address] [place] [address] lab Director: Ray Arceo MD Abs.Imm.Granulocyte 0.06 k/uL Normal 0.00-0.30 [facility] Comment on above: Performed By: #### B H, BMP, CDP, MG ####[address] , [place] 8935683 lab Director: Ray Arceo MD Abs.Neutrophil (Seg) 9.77 k/uL High 1.50-8.10 [facility] Comment on above: Performed By: #### B H, BMP, CDP, MG ####[address] [place] [address] lab Director: Ray Arceo MD Basophils/100 WBC (Bld) 0 % Normal 0-2 M [facility] Comment on above: Performed By: #### B H, BMP, CDP, MG ####[address] , [place] 9987483 lab Director: Ray Arceo MD Eosinophils/100 WBC (Bld) 0 % Low 1-4 [facility] Comment on above: Performed By: #### B H, BMP, CDP, MG ####[address] , [place] 1488883 lab Director: Ray Arceo MD Erythrocyte distribution width (RBC) [Ratio] 13.1 % Normal 11.8-14.4 [facility] Comment on above: Performed By: #### B H, BMP, CDP, MG ####[address] , [facility]83 lab Director: Ray Arceo MD Hematocrit (Bld) [Volume fraction] 42.1 % Normal 36.3-47.1 [facility] Comment on above: Performed By: #### B H, BMP, CDP, MG ####[address] , [facility]83 lab Director: Ray Arceo MD Hemoglobin (Bld) [Mass/Vol] 13.9 g/dL Normal 11.9-15.1 [facility] Comment on above: Performed By: #### B H, BMP, CDP, MG ####[address] , [facility]83 lab Director: Ray Arceo MD Immature granulocytes/100 WBC (Bld) 1 % High 0 [facility] Comment on above: Performed By: #### B H, BMP, CDP, MG ####[address] , [facility]83 lab Director: Ray Arceo MD Lymphocytes (Bld) [#/Vol] 1.85 10*3/uL Normal 1.10-3.70 [facility] Comment on above: Performed By: #### B H, BMP, CDP, MG ####[address] , [place] [id number] lab Director: Ray Arceo MD Lymphocytes/100 WBC (Bld) 15 % Low 24-43 [facility] Comment on above: Performed By: #### B H, BMP, CDP, MG ####[address] [place] [address]([facility])[phone] Director: Ray Arceo MD MCH (RBC) [Entitic mass] 30.0 pg Normal 25.2-33.5 [facility] Comment on above: Performed By: #### B H, BMP, CDP, MG ####[address] , [facility]83 lab Director: Ray Arceo MD MCHC (RBC) [Mass/Vol] 33.0 g/dL Normal 28.4-34.8 [facility] Comment on above: Performed By: #### B H, BMP, CDP, MG ####[address] , [facility]76([facility])[phone] Director: Ray Arceo MD MCV (RBC) [Entitic vol] 90.9 fL Normal 82.6-102.9 [facility] Comment on above: Performed By: #### B H, BMP, CDP, MG ####[address] , [facility]83 lab Director: Ray Arceo MD Monocytes (Bld) [#/Vol] 0.26 10*3/uL Normal 0.10-1.20 [facility] Comment on above: Performed By: #### B H, BMP, CDP, MG ####[address] , [facility]83 lab Director: Ray Acreo MD Monocytes/100 WBC (Bld) 2 % Low 3-12 M [facility] Comment on above: Performed By: #### B H, BMP, CDP, MG ####[address] , [place] 7736583 Lab Director: Ray Arceo MD Neutrophil (Seg) 82 % High 36-65 [facility] Comment on above: Performed By: #### B H, BMP, CDP, MG ####[address] , [place] 4007183 Lab Director: Ray Arceo MD NRBC Automated 0.0 per 100 WBC Normal 0.0 [facility] Comment on above: Performed By: #### B H, BMP, CDP, MG ####[address] , [place] 0163283 Lab Director: Ray Arceo MD Platelet mean volume (Bld) [Entitic vol] 11.0 fL Normal 8.1-13.5 [facility] Comment on above: Performed By: #### B H, BMP, CDP, MG ####[address] , [place] 6915283 Lab Director: Ray Arceo MD Platelets (Bld) [#/Vol] 321 10*3/uL Normal 138-453 [facility] Comment on above: Performed By: #### B H, BMP, CDP, MG ####[address] , [place] 2570583 Lab Director: Ray Arceo MD RBC (Bld) [#/Vol] 4.63 10*6/uL Normal 3.95-5.11 [facility] Comment on above: Performed By: #### B H, BMP, CDP, MG ####[address] , [place] 1947783 Lab Director: Ray Arceo MD WBC (Bld) [#/Vol] 12.0 10*3/uL High 3.5-11.3 [facility] Comment on above: Performed By: #### B H, BMP, CDP, MG ####[address] , [place] 9374883 Lab Director: Ray Arceo MD Magnesiumon 08-03-2023 Magnesium [Mass/Vol] 1.9 mg/dL Normal 1.6-2.6 [facility] Comment on above: Performed By: #### B H, BMP, CDP, MG ####[address] , [place] 5837483 [facility] Director: Ray Arceo MD Venous Blood Gaseson 023 Body Temp. 37.0 Normal [facility] Comment on above: Performed By: #### V BG ####[address] , [place] 4889683 lab Director: Ray Arceo MD HCO3 (Bld) [Moles/Vol] 20.5 mmol/L Low 24.0-30.0 M [facility] Comment on above: Performed By: #### V BG ####[address] , [place] 6264083 [facility] Director: Ray Arceo MD Negative Base Excess 5.1 mmol/L High 0.0-2.0 [facility] Comment on above: Performed By: #### V BG ####[address] [place] [address] Lab Director: Ray Arceo MD Oxygen saturation in Blood 76.4 % Normal 60.0-85.0 [facility] Comment on above: Performed By: #### V BG ####[address] , [place] 3429983 Lab Director: Ray Arceo MD pCO2 40.1 mm Hg Normal 39-55 [facility] Comment on above: Performed By: #### V BG ####[address] , [place] 9499983 Lab Director: Ray Arceo MD pH (Bld) 7.327 [pH] Normal 7.32-7.42 [facility] Comment on above: Performed By: #### V BG ####[address] , [place] 3256983 Lab Director: Ray Arceo MD pO2 43.8 mm Hg Normal 30.0-50.0 [facility] Comment on above: Performed By: #### V BG ####[address] , [place] 8547383 Lab Director: Ray Arceo MD Basic Metabolic Profon 08-01 Anion gap [Moles/Vol] 13 mmol/L Normal 9-17 [facility] Comment on above: Performed By: #### B MP ####[address] , [place] 8877383 Lab Director: Ray Arceo MD BUN/CRE Ratio 20 Normal 9-20 [facility] Comment on above: Performed By: #### B MP ####[address] , [place] 3902883 Lab Director: Ray Arceo MD Calcium [Mass/Vol] 9.6 mg/dL Normal 8.6-10.4 [facility] Comment on above: Performed By: #### B MP ####[address] , [place] 0525483 Lab Director: Ray Arceo MD Chloride [Moles/Vol] 102 mmol/L Normal 98-107 [facility] Comment on above: Performed By: #### B MP ####[address] , [place] 4824183 Lab Director: Ray Arceo MD CO2 [Moles/Vol] 22 mmol/L Normal 20-[address] [facility] Comment on above: Performed By: #### B MP ####[address] , [place] 8833083 Lab Director: Ray Arceo MD Creatinine [Mass/Vol] 0.6 mg/dL Normal 0.5-0.9 [facility] Comment on above: Performed By: #### B MP ####[address] [place] [address] Lab Director: Ray Arceo MD GFR/1.73 sq M.predicted among non-blacks MDRD (S/P/Bld) [Vol rate/Area] mL/min/{1.73_m2} Normal >60 [facility] Comment on above: Result Comment: Thes e results are not intended for use in patients <18 years of age.eGFR results are calculated without a race factor using the 2020 CKD-EPI equation.Careful clinical correlation is recommended, particularly when comparing to results calculated using previous equations.The CKD-EPI equation is less accurate in patients with extremes of muscle mass, extra-renal metabolism of creatine, excessive creatine ingestion, or following therapy that affects renal tubular secretion. Performed By: #### B MP ####[address] [place] [address] lab Director: Ray Arceo MD Glucose [Mass/Vol] 300 mg/dL High 70-99 [facility] Comment on above: Performed By: #### B MP ####[address] , [place] [id number] lab Director: Ray Arceo MD Potassium [Moles/Vol] 4.2 mmol/L Normal 3.7-5.3 [facility] Comment on above: Performed By: #### B MP ####[address] [place] [address] lab Director: Ray Arceo MD Sodium [Moles/Vol] 137 mmol/L Normal 135-144 [facility] Comment on above: Performed By: #### B MP ####[address] [place] [address] lab Director: Ray Arceo MD Urea nitrogen [Mass/Vol] 12 mg/dL Normal 6-20 [facility] Comment on above: Performed By: #### B MP ####[address] , [place] 6332783 Lab Director: Ray Arceo MD Beta Hydroxybutyrateon 08-01 Beta Hydroxybutyrate 0.22 mmol/L Normal 0.02-0.27 [facility] Comment on above: Performed By: #### B H ####[address] , [place] 7838483 Lab Director: Ray Arceo MD CBC with Diffon 08-01-2023 Abs. Basophil 0.04 k/uL Normal 0.00-0.20 [facility] Comment on above: Performed By: #### C DP, CP ####[address] , [facility]56([facility])[phone] Director: Ray Arceo MD Abs.Imm.Granulocyte 0.09 k/uL Normal 0.00-0.30 [facility] Comment on above: Performed By: #### C DP, CP ####[address] , [facility]83 Lab Director: Ray Arceo MD Abs.Neutrophil (Seg) 13.13 k/uL High 1.50-8.10 [facility] Comment on above: Performed By: #### C DP, CP ####[address] , [facility]83 Lab Director: Ray Arceo MD Basophils/100 WBC (Bld) 0 % Normal 0-2 [facility] Comment on above: Performed By: #### C DP, CP ####[address] , [place] [id number] Lab Director: Ray Arceo MD Eosinophils (Bld) [#/Vol] 0.04 10*3/uL Normal 0.00-0.44 [facility] Comment on above: Performed By: #### C DP, CP ####[address] , [facility]83 Lab Director: Ray Arceo MD Eosinophils/100 WBC (Bld) 0 % Low 1-4 [facility] Comment on above: Performed By: #### C DP, CP ####[address] , [place] 9908783 Lab Director: Ray Arceo MD Erythrocyte distribution width (RBC) [Ratio] 12.6 % Normal 11.8-14.4 [facility] Comment on above: Performed By: #### C DP, CP ####[address] [place] [address] Lab Director: Ray Arceo MD Hematocrit (Bld) [Volume fraction] 42.3 % Normal 36.3-47.1 [facility] Comment on above: Performed By: #### C DP, CP ####[address] , [facility]83 Lab Director: Ray Arceo MD Hemoglobin (Bld) [Mass/Vol] 14.2 g/dL Normal 11.9-15.1 [facility] Comment on above: Performed By: #### C DP, CP ####[address] [place] [address] Lab Director: Ray Arceo MD Immature granulocytes/100 WBC (Bld) 1 % High 0 [facility] [facility] Comment on above: Performed By: #### C DP, CP ####[address] [place] [address] Lab Director: Ray Arceo MD Lymphocytes (Bld) [#/Vol] 1.89 10*3/uL Normal 1.10-3.70 [facility] Comment on above: Performed By: #### C DP, CP ####[address] , [place] [id number] Lab Director: Ray Arceo MD Lymphocytes/100 WBC (Bld) 12 % Low 24-43 [facility] Comment on above: Performed By: #### C DP, CP ####[address] [place] [address] Lab Director: Ray Arceo MD MCH (RBC) [Entitic mass] 30.1 pg Normal 25.2-33.5 [facility] Comment on above: Performed By: #### C DP, CP ####[address] [place] [id number] Lab Director: Ray Arceo MD MCHC (RBC) [Mass/Vol] 33.6 g/dL Normal 28.4-34.8 [facility] Comment on above: Performed By: #### C DP, CP ####[address] [place] [id number] Lab Director: Ray Arceo MD MCV (RBC) [Entitic vol] 89.6 fL Normal 82.6-102.9 [facility] Comment on above: Performed By: #### C DP, CP ####[address] [place] [address] Lab Director: Ray Arceo MD Monocytes (Bld) [#/Vol] 0.45 10*3/uL Normal 0.10-1.20 [facility] Comment on above: Performed By: #### C DP, CP ####[address] , [facility] Lab Director: Ray Arceo MD Monocytes/100 WBC (Bld) 3 % Normal 3-12 M [facility] Comment on above: Performed By: #### C DP, CP ####[address] , [place] [id number] Lab Director: Ray Arceo MD Neutrophil (Seg) 84 % High 36-65 [facility] Comment on above: Performed By: #### C DP, CP ####[address] , [place] [id number] Lab Director: Ray Arceo MD NRBC Automated 0.0 per 100 WBC Normal 0.0 [facility] Comment on above: Performed By: #### C DP, CP ####[address] , [place] [id number] Lab Director: Ray Arceo MD Platelet mean volume (Bld) [Entitic vol] 10.7 fL Normal 8.1-13.5 [facility] Comment on above: Performed By: #### C DP, CP ####[address] , [place] [id number] Lab Director: Ray Arceo MD Platelets (Bld) [#/Vol] 339 10*3/uL Normal 138-453 [facility] Comment on above: Performed By: #### C DP, CP ####[address] , [place] [id number] Lab Director: Ray Arceo MD RBC (Bld) [#/Vol] 4.72 10*6/uL Normal 3.95-5.11 [facility] Comment on above: Performed By: #### C DP, CP ####[address] , [place] [id number] Lab Director: Ray Arceo MD WBC (Bld) [#/Vol] 15.6 10*3/uL High 3.5-11.3 [facility] Comment on above: Performed By: #### C DP, CP ####[address] , [place] [id number] Lab Director: Ray Arceo MD CT ABDOMEN PELVIS W IV CONTR [place] 08-01-2023 CT ABDOMEN PELVIS W IV CONTRAST Normal [facility] Comp Metabolic Profon 2022 Glucose [Mass/Vol] 423 mg/dL Critically high 70-99 M [facility] Comment on above: Performed By: #### C DP, CP ####[address] , [place] [id number] Lab Director: Ray Arceo MD Albumin [Mass/Vol] 5.0 g/dL Normal 3.5-5.2 [facility] Comment on above: Performed By: #### C DP, CP ####[address] , [place] [id number] Lab Director: Ray Arceo MD Albumin/Glob Ratio 1.3 Normal 1.0-2.5 [facility] Comment on above: Performed By: #### C DP, CP ####[address] , [place] 9948083 Lab Director: Ray Arceo MD Alkaline Phos 107 U/L High 35-104 [facility] Comment on above: Performed By: #### C DP, CP ####[address] [place] [address] Lab Director: Ray Arceo MD ALT [Catalytic activity/Vol] 58 U/L High 5-33 [facility] Comment on above: Performed By: #### C DP, CP ####[address] [place] [address] Lab Director: Ray Arceo MD Anion gap [Moles/Vol] 18 mmol/L High 9-17 [facility] Comment on above: Performed By: #### C DP, CP ####[address] , [place] [id number] Lab Director: Ray Arceo MD AST [Catalytic activity/Vol] 29 U/L Normal <32 [facility] Comment on above: Performed By: #### C DP, CP ####[address] , [place] [id number] Lab Director: Ray Arceo MD Bilirubin [Mass/Vol] 0.4 mg/dL Normal 0.3-1.2 [facility] Comment on above: Performed By: #### C DP, CP ####[address] [place] [address] Lab Director: Ray Arceo MD BUN/CRE Ratio 18 Normal 9-20 [facility] Comment on above: Performed By: #### C DP, CP ####[address] , [place] 7100683 lab Director: Ray Arceo MD Calcium [Mass/Vol] 10.3 mg/dL Normal 8.6-10.4 [facility] Comment on above: Performed By: #### C DP, CP ####[address] , [place] [id number] Lab Director: Ray Arceo MD Chloride [Moles/Vol] 99 mmol/L Normal 98-107 [facility] Comment on above: Performed By: #### C DP, CP ####[address] , [place] [id number] Lab Director: Ray Arceo MD CO2 [Moles/Vol] 21 mmol/L Normal 20-[address] [facility] Comment on above: Performed By: #### C DP, CP ####[address] , [place] 7262983 Lab Director: Ray Arceo MD Creatinine [Mass/Vol] 0.6 mg/dL Normal 0.5-0.9 [facility] Comment on above: Performed By: #### C DP, CP ####[address] [place] [address] Lab Director: Ray Arceo MD GFR/1.73 sq M.predicted among non-blacks MDRD (S/P/Bld) [Vol rate/Area] mL/min/{1.73_m2} Normal >60 [facility] Comment on above: Result Comment: Thes e results are not intended for use in patients <18 years of age.eGFR results are calculated without a race factor using the 2020 CKD-EPI equation.Careful clinical correlation is recommended, particularly when comparing to results calculated using previous equations.The CKD-EPI equation is less accurate in patients with extremes of muscle mass, extra-renal metabolism of creatine, excessive creatine ingestion, or following therapy that affects renal tubular secretion. Performed By: #### C DP, CP ####[address] , [place] [phone] Director: Ray Arceo MD Potassium [Moles/Vol] 4.7 mmol/L Normal 3.7-5.3 [facility] Comment on above: Performed By: #### C DP, CP ####[address] , [place] [phone] Director: Ray Arceo MD Protein [Mass/Vol] 8.8 g/dL High 6.4-8.3 [facility] Comment on above: Performed By: #### C DP, CP ####[address] , [place] [phone] Director: Ray Arceo MD Sodium [Moles/Vol] 138 mmol/L Normal 135-144 [facility] Comment on above: Performed By: #### C DP, CP ####[address] , [place] [phone] Director: Ray Arceo MD Urea nitrogen [Mass/Vol] 11 mg/dL Normal 6-20 [facility] Comment on above: Performed By: #### C DP, CP ####[address] , [place] [phone] Director: Ray Arceo MD Lactic Acidon 08-01-2023 Lactate [Moles/Vol] 3.6 mmol/L High 0.5-2.2 [facility] Comment on above: Performed By: #### L ACTIC ####[address] , [place] 9971183 Lab Director: Ray Arceo MD UA w/Reflex Cultureon 2022 Bilirubin, SemiQt,Ur Negative Normal NEG [facility] Comment on above: Performed By: #### U MICAO, UAX ####[address] , [place] 9603683 Lab Director: Ray Arceo MD Blood, Urine Negative Normal NEG [facility] Comment on above: Performed By: #### U MICAO, UAX ####[address] [place] [address] Lab Director: Ray Arceo MD Clarity (U) Clear Normal CLEAR [facility] Comment on above: Performed By: #### U MICAO, UAX ####[address] , [place] [id number] Lab Director: Ray Arceo MD Color (U) Yellow Normal YEL [facility] Comment on above: Performed By: #### U MICAO, UAX ####[address] [place] [address] Lab Director: Ray Arceo MD Glucose Ql (U) 3+ mg/dL Abnormal NEG [facility] Comment on above: Performed By: #### U MICAO, UAX ####[address] , [place] [id number] Lab Director: Ray Arceo MD Ketones Ql (U) TRACE Abnormal NEG [facility] Comment on above: Performed By: #### U MICAO, UAX ####[address] , [place] 7535283 Lab Director: Ray Arceo MD Leukocyte esterase Test strip Ql (U) Negative Normal NEG [facility] Comment on above: Performed By: #### U MICAO, UAX ####[address] , [place] 6885783 lab Director: Ray Arceo MD Nitrite,Ur Negative Normal NEG [facility] Comment on above: Performed By: #### U MICAO, UAX ####[address] , [place] [id number] lab Director: Ray Arceo MD PH,Ur 6.0 Normal 5.0-9.0 [facility] Comment on above: Performed By: #### U MICAO, UAX ####[address] , [place] [id number] lab Director: Ray Arceo MD Protein Ql (U) Negative Normal NEG [facility] Comment on above: Performed By: #### U MICAO, UAX ####[address] , [place] 5641883 lab Director: Ray Arceo MD Spec. [place],Ur 1.020 Normal 1.010-1.020 [facility] Comment on above: Performed By: #### U MICAO, UAX ####[address] , [place] 5246983 lab Director: Ray Arceo MD Urobilinogen,Ur Normal Normal 0.0-1.[address] [facility] Comment on above: Performed By: #### U MICAO, UAX ####[address] , [place] [id number] lab Director: Ray Arceo MD Urinalysis,Microon 3 Bacteria TRACE Abnormal NONE [facility] Comment on above: Performed By: #### U MICAO, UAX ####[address] , [place] 2615483 lab Director: Ray Arceo MD Epithelial cells LM Ql (Urine sed) 0 TO 2 Normal 0-25 [facility] Comment on above: Performed By: #### U MICAO, UAX ####[address] [place] [address] lab Director: Ray Arceo MD Urine RBC's None Normal 0-2 [facility] Comment on above: Performed By: #### U MICAO, UAX ####[address] , [place] [id number] lab Director: Ray Arceo MD Urine WBC's 0 TO 2 Normal 0-5 [facility] Comment on above: Performed By: #### U MICAO, UAX ####[address] , [place] [id number] lab Director: Ray Arceo MD Venous Blood Gaseson 023 Body Temp. 37.0 Normal [facility] Comment on above: Performed By: #### V BG ####[address] , [place] [id number] lab Director: Ray Arceo MD HCO3 (Bld) [Moles/Vol] 20.0 mmol/L Low 24.0-30.0 [facility] Comment on above: Performed By: #### V BG ####[address] , [place] [id number] lab Director: Ray Arceo MD Negative Base Excess 4.8 mmol/L High 0.0-2.0 [facility] Comment on above: Performed By: #### V BG ####[address] [place] [address] lab Director: Ray Arceo MD Oxygen saturation in Blood 87.1 % High 60.0-85.0 [facility] Comment on above: Performed By: #### V BG ####[address] [place] [address] lab Director: Ray Arceo MD pCO2 36.6 mm Hg Low 39-55 [facility] Comment on above: Performed By: #### V BG ####[facility] [place] [address] Lab Director: Ray Arceo MD pH (Bld) 7.355 [pH] Normal 7.32-7.42 [facility] Comment on above: Performed By: #### V BG ####[facility] [place] , [place] 0143583 lab Director: Ray Arceo MD pO2 54.2 mm Hg High 30.0-50.0 [facility] Comment on above: Performed By: #### V BG ####[facility] [place] [address] lab Director: Ray Arceo MD Cult,Urineon 07-31-2023 Cult,Urine Specimen Description .CLEAN CATCH URINE Culture NO SIGNIFICANT GROWTH Report Status FINAL 07/31/2023 Normal [facility] Comment on above: Performed By: #### U RC #### [address] [address] Acute Dialysis Nurse: Rishabh Mendieta MD Basic Metab w/rfx MGon 07-30 Anion gap [Moles/Vol] 12 mmol/L Normal 9-17 [facility] Comment on above: Performed By: #### B MPX CDP #### [address] [address] Acute Dialysis Nurse: Rishabh Mendieta MD Calcium [Mass/Vol] 8.8 mg/dL Normal 8.6-10.4 [facility] Comment on above: Performed By: #### B MPX, CDP #### [address] [address] Acute Dialysis Nurse: Rishabh Mendieta MD Chloride [Moles/Vol] 106 mmol/L Normal 98-107 [facility] Comment on above: Performed By: #### B MPX, CDP #### [facility] [address] [place] [address] Acute Dialysis Nurse: Rishabh Mendieta MD CO2 [Moles/Vol] 23 mmol/L Normal 20-31 [facility] Comment on above: Performed By: #### B MPX, CDP #### [facility] [address] [place] [address] Acute Dialysis Nurse: Rishabh Mendieta MD Creatinine [Mass/Vol] 0.7 mg/dL Normal 0.5-0.9 [facility] Comment on above: Performed By: #### B MPX, CDP #### [address] [address] Acute Dialysis Nurse: Rishabh Mendieta MD GFR/1.73 sq M.predicted among non-blacks MDRD (S/P/Bld) [Vol rate/Area] mL/min/{1.73_m2} Normal >60 [facility] Comment on above: Result Comment: These results are not intended for use in patients <18 years of age. eGFR results are calculated without a race factor using the 2020 CKD-EPI equation. Careful clinical correlation is recommended, particularly when comparing to results calculated using previous equations. The CKD-EPI equation is less accurate in patients with extremes of muscle mass, extra-renal metabolism of creatine, excessive creatine ingestion, or following therapy that affects renal tubular secretion. Performed By: #### B MPX, CDP #### [facility] [address] [place] [address] Acute Dialysis Nurse: Rishabh Mendieta MD Glucose [Mass/Vol] 183 mg/dL High 70-99 [facility] Comment on above: Performed By: #### B MPX, CDP #### [facility] [address] [place] [address] Acute Dialysis Nurse: Rishabh Mendieta MD Potassium [Moles/Vol] 4.2 mmol/L Normal 3.7-5.3 [facility] Comment on above: Performed By: #### B MPX, CDP #### [address] [address] Acute Dialysis Nurse: Rishabh Mendieta MD Sodium [Moles/Vol] 141 mmol/L Normal 135-144 [facility] Comment on above: Performed By: #### B MPX, CDP #### [place] [address] Acute Dialysis Nurse: Rishabh Mendieta MD Urea nitrogen [Mass/Vol] 14 mg/dL Normal 6-20 [facility] Comment on above: Performed By: #### B MPX, CDP #### [address] [address] Acute Dialysis Nurse: Rishabh Mendieta MD CBC with Diffon 07-30-2023 Abs. Basophil 0.05 k/uL Normal 0.00-0.20 [facility] Comment on above: Performed By: #### B MPX, CDP #### [address] [address] Acute Dialysis Nurse: Rishabh Mendieta MD Abs.Imm.Granulocyte 0.05 k/uL Normal 0.00-0.30 [facility] Comment on above: Performed By: #### B MPX, CDP #### [address] [address] Acute Dialysis Nurse: Rishabh Mendieta MD Abs.Neutrophil (Seg) 6.63 k/uL Normal 1.50-8.10 [facility] Comment on above: Performed By: #### B MPX, CDP #### [address] [address] Acute Dialysis Nurse: Rishabh Mendieta MD Basophils/100 WBC (Bld) 1 % Normal 0-2 M [facility] Comment on above: Performed By: #### B MPX, CDP #### [address] [address] Acute Dialysis Nurse: Rishabh Mendieta MD Eosinophils (Bld) [#/Vol] 0.17 10*3/uL Normal 0.00-0.44 [facility] Comment on above: Performed By: #### B MPX, CDP #### [address] [address] Acute Dialysis Nurse: Rishabh Mendieta MD Eosinophils/100 WBC (Bld) 2 % Normal 1-4 [facility] Comment on above: Performed By: #### B MPX, CDP #### [address] [address] Acute Dialysis Nurse: Rishabh Mendieta MD Erythrocyte distribution width (RBC) [Ratio] 13.2 % Normal 11.8-14.4 [facility] Comment on above: Performed By: #### B MPX, CDP #### [address] [address] Acute Dialysis Nurse: Rishabh Mendieta MD Hematocrit (Bld) [Volume fraction] 39.5 % Normal 36.3-47.1 [facility] Comment on above: Performed By: #### B MPX, CDP #### [facility] [address] [place] [address] Acute Dialysis Nurse: Rishabh Mendieta MD Hemoglobin (Bld) [Mass/Vol] 12.6 g/dL Normal 11.9-15.1 [facility] Comment on above: Performed By: #### B MPX, CDP #### [facility] [address] [place] [address] Acute Dialysis Nurse: Rishabh Mendieta MD Immature granulocytes/100 WBC (Bld) 1 % High 0 [facility] Comment on above: Performed By: #### B MPX, CDP #### [facility] [address] [place] [address] Acute Dialysis Nurse: Rishabh Mendieta MD Lymphocytes (Bld) [#/Vol] 2.89 10*3/uL Normal 1.10-3.70 [facility] Comment on above: Performed By: #### B MPX, CDP #### [address] [address] Acute Dialysis Nurse: Rishabh Mendieta MD Lymphocytes/100 WBC (Bld) 28 % Normal 24-43 [facility] Comment on above: Performed By: #### B MPX, CDP #### [address] [address] Acute Dialysis Nurse: Rishabh Mendieta MD MCH (RBC) [Entitic mass] 30.0 pg Normal 25.2-33.5 [facility] Comment on above: Performed By: #### B MPX, CDP #### [address] [address] Acute Dialysis Nurse: Rishabh Mendieta MD MCHC (RBC) [Mass/Vol] 31.9 g/dL Normal 28.4-34.8 [facility] Comment on above: Performed By: #### B MPX, CDP #### [address] [address] Acute Dialysis Nurse: Rishabh Mendieta MD MCV (RBC) [Entitic vol] 94.0 fL Normal 82.6-102.9 M [facility] Comment on above: Performed By: #### B MPX, CDP #### [address] [address] Acute Dialysis Nurse: Rishabh Mendieta MD Monocytes (Bld) [#/Vol] 0.68 10*3/uL Normal 0.10-1.20 [facility] Comment on above: Performed By: #### B MPX, CDP #### [address] [address] Acute Dialysis Nurse: Rishabh Mendieta MD Monocytes/100 WBC (Bld) 7 % Normal 3-12 M [facility] Comment on above: Performed By: #### B MPX, CDP #### [address] [address] Acute Dialysis Nurse: Rishabh Mendieta MD Neutrophil (Seg) 61 % Normal 36-65 [facility] Comment on above: Performed By: #### B MPX, CDP #### [address] [address] Acute Dialysis Nurse: Rishabh Mendieta MD NRBC Automated 0.0 per 100 WBC Normal 0.0 [facility] Comment on above: Performed By: #### B MPX, CDP #### [address] [address] Acute Dialysis Nurse: Rishabh Mendieta MD Platelet mean volume (Bld) [Entitic vol] 11.0 fL Normal 8.1-13.5 [facility] Comment on above: Performed By: #### B MPX, CDP #### [address] [address] Acute Dialysis Nurse: Rishabh Mendieta MD Platelets (Bld) [#/Vol] 241 10*3/uL Normal 138-453 [facility] Comment on above: Performed By: #### B MPX, CDP #### [address] [address] Acute Dialysis Nurse: Rishabh Mendieta MD RBC (Bld) [#/Vol] 4.20 10*6/uL Normal 3.95-5.11 [facility] Comment on above: Performed By: #### B MPX, CDP #### [address] [address] Acute Dialysis Nurse: Rishabh Mendieta MD WBC (Bld) [#/Vol] 10.5 10*3/uL Normal 3.5-11.3 [facility] Comment on above: Performed By: #### B MPX, CDP #### [address] [address] Acute Dialysis Nurse: Rishabh Mendieta MD Urinalysis w/ Microon 2022 Bacteria None Normal NONE [facility] Comment on above: Performed By: #### U AMIC #### [address] [address] Acute Dialysis Nurse: Rishabh Mendieta MD Bilirubin, SemiQt,Ur Negative Normal NEG [facility] Comment on above: Performed By: #### U AMIC #### [address] [address] Acute Dialysis Nurse: Rishabh Mendieta MD Blood, Urine Negative Normal NEG [facility] Comment on above: Performed By: #### U AMIC #### [address] [address] Acute Dialysis Nurse: Rishabh Mendieta MD Casts None Normal 0-8 [facility] Comment on above: Result Comment: Refe rence range defined for non-centrifuged specimen. Performed By: #### U AMIC #### [address] [address] Acute Dialysis Nurse: Rishabh Mendieta MD Clarity (U) Clear Normal CLEAR [facility] Comment on above: Performed By: #### U AMIC #### [address] [address] Acute Dialysis Nurse: Rishabh Mendieta MD Color (U) Yellow Normal YEL [facility] Comment on above: Performed By: #### U AMIC #### [address] [address] Acute Dialysis Nurse: Rishabh Mendieta MD Epithelial cells LM Ql (Urine sed) 0 TO 2 Normal 0-5 [facility] Comment on above: Performed By: #### U AMIC #### [address] [address] Acute Dialysis Nurse: Rishabh Mendieta MD Glucose Ql (U) Negative Normal NEG [facility] Comment on above: Performed By: #### U AMIC #### [address] [address] Acute Dialysis Nurse: Rishabh Mendieta MD Ketones Ql (U) Negative Normal NEG [facility] Comment on above: Performed By: #### U AMIC #### [address] [address] Acute Dialysis Nurse: Rishabh Mendieta MD Leukocyte esterase Test strip Ql (U) Negative Normal NEG [facility] Comment on above: Performed By: #### U AMIC #### [address] [address] Acute Dialysis Nurse: Rishabh Mendieta MD Nitrite,Ur Negative Normal NEG [facility] Comment on above: Performed By: #### U AMIC #### [address] [address] Acute Dialysis Nurse: Rishabh Mendieta MD PH,Ur 5.5 Normal 5.0-8.0 [facility] Comment on above: Performed By: #### U AMIC #### [address] [address] Acute Dialysis Nurse: Rishabh Mendieta MD Protein Ql (U) Negative Normal NEG [facility] Comment on above: Performed By: #### U AMIC #### [address] [address] Acute Dialysis Nurse: Rishabh Mendieta MD Spec. [place],Ur 1.018 Normal 1.005-1.030 [facility] Comment on above: Performed By: #### U AMIC #### [address] [place] [address] Acute Dialysis Nurse: Rishabh Mendieta MD Urine RBC's 2 TO 5 Normal 0-4 [facility] Comment on above: Result Comment: Refe rence range defined for non-centrifuged specimen. Performed By: #### U AMIC #### [address] [address] Acute Dialysis Nurse: Rishabh Mendieta MD Urine WBC's 0 TO 2 Normal 0-5 [facility] Comment on above: Performed By: #### U AMIC #### [address] [address] Acute Dialysis Nurse: Rishabh Mendieta MD Urobilinogen,Ur Normal Normal 0.0-1.0 [facility] Comment on above: Performed By: #### U AMIC #### [address] [address] Acute Dialysis Nurse: Rishabh Mendieta MD CBC with Diffon 07-29-2023 Abs. Basophil 0.06 k/uL Normal 0.00-0.20 [facility] Comment on above: Performed By: #### C P, CDP #### [address] [address] Acute Dialysis Nurse: Rishabh Mendieta MD Abs.Imm.Granulocyte 0.07 k/uL Normal 0.00-0.30 [facility] Comment on above: Performed By: #### C P, CDP #### [address] [address] Acute Dialysis Nurse: Rishabh Mendieta MD Abs.Neutrophil (Seg) 9.60 k/uL High 1.50-8.10 [facility] Comment on above: Performed By: #### C P, CDP #### [address] [address] Acute Dialysis Nurse: Rishabh Mendieta MD Basophils/100 WBC (Bld) 0 % Normal 0-2 M [facility] Comment on above: Performed By: #### C P, CDP #### [address] [address] Acute Dialysis Nurse: Rishabh Mendieta MD Eosinophils (Bld) [#/Vol] 0.14 10*3/uL Normal 0.00-0.44 [facility] Comment on above: Performed By: #### C P, CDP #### [address] [address] Acute Dialysis Nurse: Rishabh Mendieta MD Eosinophils/100 WBC (Bld) 1 % Normal 1-4 [facility] Comment on above: Performed By: #### C P, CDP #### [address] [address] Acute Dialysis Nurse: Rishabh Mendieta MD Erythrocyte distribution width (RBC) [Ratio] 13.0 % Normal 11.8-14.4 [facility] Comment on above: Performed By: #### C P, CDP #### [address] [address] Acute Dialysis Nurse: Rishabh Mendieta MD Hematocrit (Bld) [Volume fraction] 43.0 % Normal 36.3-47.1 [facility] Comment on above: Performed By: #### C P, CDP #### [place] [address] Acute Dialysis Nurse: Rishabh Mendieta MD Hemoglobin (Bld) [Mass/Vol] 14.3 g/dL Normal 11.9-15.1 [facility] Comment on above: Performed By: #### C P, CDP #### [address] [address] Acute Dialysis Nurse: Rishabh Mendieta MD Immature granulocytes/100 WBC (Bld) 1 % High 0 [facility] Comment on above: Performed By: #### C P, CDP #### [address] [address] Acute Dialysis Nurse: Rishabh Mendieta MD Lymphocytes (Bld) [#/Vol] 3.38 10*3/uL Normal 1.10-3.70 [facility] [facility] Comment on above: Performed By: #### C P, CDP #### [place] [address] Acute Dialysis Nurse: Rishabh Mendieta MD Lymphocytes/100 WBC (Bld) 25 % Normal 24-43 [facility] Comment on above: Performed By: #### C P, CDP #### [place] [address] Acute Dialysis Nurse: Rishabh Mendieta MD MCH (RBC) [Entitic mass] 30.4 pg Normal 25.2-33.5 [facility] Comment on above: Performed By: #### C P, CDP #### [place] [address] Acute Dialysis Nurse: Rishabh Mendieta MD MCHC (RBC) [Mass/Vol] 33.3 g/dL Normal 28.4-34.8 [facility] Comment on above: Performed By: #### C P, CDP #### [place] [address] Acute Dialysis Nurse: Rishabh Mendieta MD MCV (RBC) [Entitic vol] 91.5 fL Normal 82.6-102.9 [facility] Comment on above: Performed By: #### C P, CDP #### [place] [address] Acute Dialysis Nurse: Rishabh Mendieta MD Monocytes (Bld) [#/Vol] 0.57 10*3/uL Normal 0.10-1.20 [facility] Comment on above: Performed By: #### C P, CDP #### [address] [address] Acute Dialysis Nurse: Rishabh Mendieta MD Monocytes/100 WBC (Bld) 4 % Normal 3-12 [facility] Comment on above: Performed By: #### C P, CDP #### [address] [address] Acute Dialysis Nurse: Rishabh Mendieta MD Neutrophil (Seg) 69 % High 36-65 [facility] Comment on above: Performed By: #### C P, CDP #### [address] [address] Acute Dialysis Nurse: Rishabh Mendieta MD NRBC Automated 0.0 per 100 WBC Normal 0.0 [facility] Comment on above: Performed By: #### C P, CDP #### [address] [address] Acute Dialysis Nurse: Rishabh Mendieta MD Platelet mean volume (Bld) [Entitic vol] 11.1 fL Normal 8.1-13.5 [facility] Comment on above: Performed By: #### C P, CDP #### [address] [address] Acute Dialysis Nurse: Rishabh Mendieta MD Platelets (Bld) [#/Vol] 285 10*3/uL Normal 138-453 [facility] Comment on above: Performed By: #### C P, CDP #### [address] [address] Acute Dialysis Nurse: Rishabh Mendieta MD RBC (Bld) [#/Vol] 4.70 10*6/uL Normal 3.95-5.11 [facility] Comment on above: Performed By: #### C P, CDP #### [address] [address] Acute Dialysis Nurse: Rishabh Mendieta MD WBC (Bld) [#/Vol] 13.8 10*3/uL High 3.5-11.3 [facility] Comment on above: Performed By: #### C P, CDP #### [address] [address] Acute Dialysis Nurse: Rishabh Mendieta MD Comp Metabolic Profon 2022 Albumin [Mass/Vol] 4.1 g/dL Normal 3.5-5.2 [facility] Comment on above: Performed By: #### C P, CDP #### [address] [address] Acute Dialysis Nurse: Rishabh Mendieta MD Albumin/Glob Ratio 1.3 Normal 1.0-2.5 [facility] Comment on above: Performed By: #### C P, CDP #### [address] [address] Acute Dialysis Nurse: Rishabh Mendieta MD Alkaline Phos 94 U/L Normal 35-104 [facility] Comment on above: Performed By: #### C P, CDP #### [address] [address] Acute Dialysis Nurse: Rishabh Mendieta MD ALT [Catalytic activity/Vol] 39 U/L High 5-33 [facility] Comment on above: Performed By: #### C P, CDP #### [address] [address] Acute Dialysis Nurse: Rishabh Menideta MD Anion gap [Moles/Vol] 12 mmol/L Normal 9-17 [facility] Comment on above: Performed By: #### C P, CDP #### [address] [address] Acute Dialysis Nurse: Rishabh Mendieta MD AST [Catalytic activity/Vol] 37 U/L High <32 [facility] Comment on above: Performed By: #### C P, CDP #### [address] [place] [address] Acute Dialysis Nurse: Rishabh Mendieta MD Bilirubin [Mass/Vol] 0.3 mg/dL Normal 0.3-1.2 [facility] Comment on above: Performed By: #### C P, CDP #### [address] [address] Acute Dialysis Nurse: Rishabh Mendieta MD Calcium [Mass/Vol] 9.6 mg/dL Normal 8.6-10.4 [facility] Comment on above: Performed By: #### C P, CDP #### [address] [address] Acute Dialysis Nurse: Rishabh Mendieta MD Chloride [Moles/Vol] 102 mmol/L Normal 98-107 [facility] Comment on above: Performed By: #### C P, CDP #### [address] [address] Acute Dialysis Nurse: Rishabh Mendieta MD CO2 [Moles/Vol] 23 mmol/L Normal 20-31 [facility] Comment on above: Performed By: #### C P, CDP #### [address] [address] Acute Dialysis Nurse: Rishabh Mendieta MD Creatinine [Mass/Vol] 0.6 mg/dL Normal 0.5-0.9 [facility] Comment on above: Performed By: #### C P, CDP #### [address] [address] Acute Dialysis Nurse: Rishabh Mendieta MD GFR/1.73 sq M.predicted among non-blacks MDRD (S/P/Bld) [Vol rate/Area] mL/min/{1.73_m2} Normal >60 [facility] Comment on above: Result Comment: These results are not intended for use in patients <18 years of age. eGFR results are calculated without a race factor using the 2020 CKD-EPI equation. Careful clinical correlation is recommended, particularly when comparing to results calculated using previous equations. The CKD-EPI equation is less accurate in patients with extremes of muscle mass, extra-renal metabolism of creatine, excessive creatine ingestion, or following therapy that affects renal tubular secretion. Performed By: #### C P, CDP #### [address] [address] Acute Dialysis Nurse: Rishabh Mendieta MD Glucose [Mass/Vol] 224 mg/dL High 70-99 [facility] Comment on above: Performed By: #### C P, CDP #### [address] [address] Acute Dialysis Nurse: Rishabh Mendieta MD Potassium [Moles/Vol] 4.1 mmol/L Normal 3.7-5.3 [facility] Comment on above: Performed By: #### C P, CDP #### [address] [address] Acute Dialysis Nurse: Rishabh Mendieta MD Protein [Mass/Vol] 7.3 g/dL Normal 6.4-8.3 [facility] Comment on above: Performed By: #### C P, CDP #### [address] [address] Acute Dialysis Nurse: Rishabh Mendieta MD Sodium [Moles/Vol] 137 mmol/L Normal 135-144 [facility] Comment on above: Performed By: #### C P, CDP #### [address] [address] Acute Dialysis Nurse: Rishabh Mendieta MD Urea nitrogen [Mass/Vol] 13 mg/dL Normal 6-20 [facility] Comment on above: Performed By: #### C P, CDP #### [address] [address] Acute Dialysis Nurse: Rishabh Mendieta MD MRI LUMBAR SPINE W WO CONTRA STon 07-29-2023 MRI LUMBAR SPINE W WO CONTRAST EXAMINATION: MRI OF THE THORACIC SPINE WITHOUT AND WITH CONTRAST; MRI OF THE LUMBAR SPINE WITHOUT AND WITH CONTRAST 07/29/2023 5:23 pm TECHNIQUE: Multiplanar multisequence MRI of the thoracic spine was performed without and with the administration of intravenous contrast.; Multiplanar multisequence MRI of the lumbar spine was performed without and with the administration of intravenous contrast. COMPARISON: None HISTORY: ORDERING SYSTEM PROVIDED HISTORY: back pain, saddle anesthesia, weakness and numbness of bilateral legs, hx L4-L5 disc protrusion TECHNOLOGIST PROVIDED HISTORY: back pain, saddle anesthesia, weakness and numbness of bilateral legs, hx L4-L5 disc protrusion Decision Support Exception - unselect if not a suspected or confirmed emergency medical condition->Emergenc y Medical Condition (MA) Reason for Exam: back pain, saddle anesthesia, weakness and numbness of bilateral legs, hx L4-L5 disc protrusion FINDINGS: MRI thoracic spine: The study is degraded by motion artifact. There is mild to moderate multilevel degenerative disc disease. The thoracic cord is normal in size and signal intensity. No abnormal enhancement is identified after contrast administration. No significant canal or neural foraminal stenosis is identified. MRI lumbar spine: The study is degraded by motion artifact. There is a normal lumbar lordosis. No acute fracture or traumatic subluxation is identified. Moderate to severe degenerative disc disease is present at L4-5. No abnormal enhancement is seen after contrast administration. At L4-5 there is a disc bulge with a superimposed broad-based 4.5 mm in AP diameter central disc protrusion resulting in mild narrowing of the thecal sac. IMPRESSION: Motion degraded exams. No evidence of cord compression or cauda equina syndrome. Interpreted by: Onel Roberts MD Signed by: Onel Roberts MD 07/29/23 Final result Normal [facility] MRI THORACIC SPINE W WO CONT Estee 07-29-2023 MRI THORACIC SPINE W WO CONTRAST EXAMINATION: MRI OF THE THORACIC SPINE WITHOUT AND WITH CONTRAST; MRI OF THE LUMBAR SPINE WITHOUT AND WITH CONTRAST 07/29/2023 5:23 pm TECHNIQUE: Multiplanar multisequence MRI of the thoracic spine was performed without and with the administration of intravenous contrast.; Multiplanar multisequence MRI of the lumbar spine was performed without and with the administration of intravenous contrast. COMPARISON: None HISTORY: ORDERING SYSTEM PROVIDED HISTORY: back pain, saddle anesthesia, weakness and numbness of bilateral legs, hx L4-L5 disc protrusion TECHNOLOGIST PROVIDED HISTORY: back pain, saddle anesthesia, weakness and numbness of bilateral legs, hx L4-L5 disc protrusion Decision Support Exception - unselect if not a suspected or confirmed emergency medical condition->Emergenc y Medical Condition (MA) Reason for Exam: back pain, saddle anesthesia, weakness and numbness of bilateral legs, hx L4-L5 disc protrusion FINDINGS: MRI thoracic spine: The study is degraded by motion artifact. There is mild to moderate multilevel degenerative disc disease. The thoracic cord is normal in size and signal intensity. No abnormal enhancement is identified after contrast administration. No significant canal or neural foraminal stenosis is identified. MRI lumbar spine: The study is degraded by motion artifact. There is a normal lumbar lordosis. No acute fracture or traumatic subluxation is identified. Moderate to severe degenerative disc disease is present at L4-5. No abnormal enhancement is seen after contrast administration. At L4-5 there is a disc bulge with a superimposed broad-based 4.5 mm in AP diameter central disc protrusion resulting in mild narrowing of the thecal sac. IMPRESSION: Motion degraded exams. No evidence of cord compression or cauda equina syndrome. Interpreted by: Onel Roberts MD Signed by: Onel Roberts MD 07/29/23 Final result Normal [facility] Basic Metabolic Profon 06-21 Anion gap [Moles/Vol] 12 mmol/L Normal - [facility] Comment on above: Performed By: #### C DP, BMP, TROPI, LIP, LIVP, MG ####[facility] [place] [address] lab Director: Ray Arceo MD BUN/CRE Ratio 17 Normal - [facility] Comment on above: Performed By: #### C DP, BMP, TROPI, LIP, LIVP, MG ####[facility] [place] [address] lab Director: Ray Arceo MD Calcium [Mass/Vol] 9.4 mg/dL Normal 8.6-10.4 [facility] Comment on above: Performed By: #### C DP, BMP, TROPI, LIP, LIVP, MG ####[address] , [place] [address] Lab Director: Ray Arceo MD Chloride [Moles/Vol] 102 mmol/L Normal 98-107 [facility] Comment on above: Performed By: #### C DP, BMP, TROPI, LIP, LIVP, MG ####[facility] [place] , [place] [id number] lab Director: Ray Arceo MD CO2 [Moles/Vol] 25 mmol/L Normal 20-[address] [facility] Comment on above: Performed By: #### C DP, BMP, TROPI, LIP, LIVP, MG ####[address] , [place] [address]83 lab Director: Ray Arceo MD Creatinine [Mass/Vol] 0.7 mg/dL Normal 0.5-0.9 [facility] Comment on above: Performed By: #### C DP, BMP, TROPI, LIP, LIVP, MG ####[address] , [place] [address]83 lab Director: Ray Arceo MD GFR/1.73 sq M.predicted among non-blacks MDRD (S/P/Bld) [Vol rate/Area] mL/min/{1.73_m2} Normal >60 [facility] Comment on above: Result Comment: Thes e results are not intended for use in patients <18 years of age.eGFR results are calculated without a race factor using the 2020 CKD-EPI equation.Careful clinical correlation is recommended, particularly when comparing to results calculated using previous equations.The CKD-EPI equation is less accurate in patients with extremes of muscle mass, extra-renal metabolism of creatine, excessive creatine ingestion, or following therapy that affects renal tubular secretion. Performed By: #### C DP, BMP, TROPI, LIP, LIVP, MG ####[address] , [place] [address] lab Director: Ray Arceo MD Glucose [Mass/Vol] 160 mg/dL High 70-99 [facility] Comment on above: Performed By: #### C DP, BMP, TROPI, LIP, LIVP, MG ####[address] , [place] [address] Lab Director: Ray Arceo MD Potassium [Moles/Vol] 3.9 mmol/L Normal 3.7-5.3 [facility] Comment on above: Performed By: #### C DP, BMP, TROPI, LIP, LIVP, MG ####[address] [place] [address] Lab Director: Ray Arceo MD Sodium [Moles/Vol] 139 mmol/L Normal 135-144 [facility] Comment on above: Performed By: #### C DP, BMP, TROPI, LIP, LIVP, MG ####[address] [place] [address] Lab Director: Ray Arceo MD Urea nitrogen [Mass/Vol] 12 mg/dL Normal 6-20 [facility] Comment on above: Performed By: #### C DP, BMP, TROPI, LIP, LIVP, MG ####[address] [place] [address] Lab Director: Ray Arceo MD CBC with Diffon 06-21-2023 Abs. Basophil 0.06 k/uL Normal 0.00-0.20 [facility] Comment on above: Performed By: #### C DP, BMP, TROPI, LIP, LIVP, MG ####[address] , [place] [id number] Lab Director: Ray Arceo MD Abs.Imm.Granulocyte 0.06 k/uL Normal 0.00-0.30 [facility] Comment on above: Performed By: #### C DP, BMP, TROPI, LIP, LIVP, MG ####[address] , [place] [address])[phone] Director: Ray Arceo MD Abs.Neutrophil (Seg) 6.18 k/uL Normal 1.50-8.10 [facility] Comment on above: Performed By: #### C DP, BMP, TROPI, LIP, LIVP, MG ####[address] , [place] [address])[phone] Director: Ray Arceo MD Basophils/100 WBC (Bld) 1 % Normal 0-2 [facility] Comment on above: Performed By: #### C DP, BMP, TROPI, LIP, LIVP, MG ####[address] , [facility]98([facility])[phone] Director: Ray Arceo MD Eosinophils (Bld) [#/Vol] 0.16 10*3/uL Normal 0.00-0.44 [facility] Comment on above: Performed By: #### C DP, BMP, TROPI, LIP, LIVP, MG ####[address] , [place] [address])[phone] Director: Ray Arceo MD Eosinophils/100 WBC (Bld) 1 % Normal 1-4 [facility] Comment on above: Performed By: #### C DP, BMP, TROPI, LIP, LIVP, MG ####[address] , [place] [address])[phone] Director: Ray Arceo MD Erythrocyte distribution width (RBC) [Ratio] 12.8 % Normal 11.8-14.4 [facility] Comment on above: Performed By: #### C DP, BMP, TROPI, LIP, LIVP, MG ####[address] , [facility]83 Lab Director: Ray Arceo MD Hematocrit (Bld) [Volume fraction] 40.6 % Normal 36.3-47.1 [facility] Comment on above: Performed By: #### C DP, BMP, TROPI, LIP, LIVP, MG ####[address] , [place] [address])[phone] Director: Ray Arceo MD Hemoglobin (Bld) [Mass/Vol] 13.7 g/dL Normal 11.9-15.1 [facility] Comment on above: Performed By: #### C DP, BMP, TROPI, LIP, LIVP, MG ####[address] , [place] [phone] Director: Ray Arceo MD Immature granulocytes/100 WBC (Bld) 1 % High 0 [facility] Comment on above: Performed By: #### C DP, BMP, TROPI, LIP, LIVP, MG ####[address] , [facility]83[facility])[phone] Director: Ray Arceo MD Lymphocytes (Bld) [#/Vol] 4.20 10*3/uL High 1.10-3.70 [facility] Comment on above: Performed By: #### C DP, BMP, TROPI, LIP, LIVP, MG ####[address] , [place] [id number] Lab Director: Ray Arceo MD Lymphocytes/100 WBC (Bld) 37 % Normal 24-43 [facility] Comment on above: Performed By: #### C DP, BMP, TROPI, LIP, LIVP, MG ####[address] , [place] [id number])[phone] Director: Ray Arceo MD MCH (RBC) [Entitic mass] 30.6 pg Normal 25.2-33.5 [facility] Comment on above: Performed By: #### C DP, BMP, TROPI, LIP, LIVP, MG ####[address] [place] [address] Lab Director: Ray Arceo MD MCHC (RBC) [Mass/Vol] 33.7 g/dL Normal 28.4-34.8 [facility] Comment on above: Performed By: #### C DP, BMP, TROPI, LIP, LIVP, MG ####[address] , [place] [id number] Lab Director: Ray Arceo MD MCV (RBC) [Entitic vol] 90.6 fL Normal 82.6-102.9 [facility] Comment on above: Performed By: #### C DP, BMP, TROPI, LIP, LIVP, MG ####[address] [place], [place] [address])[phone] Director: Ray Arceo MD Monocytes (Bld) [#/Vol] 0.62 10*3/uL Normal 0.10-1.20 [facility] Comment on above: Performed By: #### C DP, BMP, TROPI, LIP, LIVP, MG ####[address] , [place] [address])[phone] Director: Ray Arceo MD Monocytes/100 WBC (Bld) 6 % Normal 3-12 [facility] Comment on above: Performed By: #### C DP, BMP, TROPI, LIP, LIVP, MG ####[address] , [place] [address])[phone] Director: Ray Arceo MD Neutrophil (Seg) 55 % Normal 36-65 [facility] Comment on above: Performed By: #### C DP, BMP, TROPI, LIP, LIVP, MG ####[address] , [place] 38[address] Lab Director: Ray Arceo MD NRBC Automated 0.0 per 100 WBC Normal 0.0 [facility] Comment on above: Performed By: #### C DP, BMP, TROPI, LIP, LIVP, MG ####[place] [address] [place] , [place] 9[address]383 Lab Director: Ray Arceo MD Platelet mean volume (Bld) [Entitic vol] 11.0 fL Normal 8.1-13.5 [facility] Comment on above: Performed By: #### C DP, BMP, TROPI, LIP, LIVP, MG ####[address] , [place] [id number] Lab Director: Ray Arceo MD Platelets (Bld) [#/Vol] 316 10*3/uL Normal 138-453 [facility] Comment on above: Performed By: #### C DP, BMP, TROPI, LIP, LIVP, MG ####[address] , [place] 616[address]83 Lab Director: Ray Arceo MD RBC (Bld) [#/Vol] 4.48 10*6/uL Normal 3.95-5.11 [facility] Comment on above: Performed By: #### C DP, BMP, TROPI, LIP, LIVP, MG ####[address] , [place] 16[address]283 Lab Director: Ray Arceo MD WBC (Bld) [#/Vol] 11.3 10*3/uL Normal 3.5-11.3 [facility] Comment on above: Performed By: #### C DP, BMP, TROPI, LIP, LIVP, MG ####[address] , [place] 777[address]83 Lab Director: Ray Arceo MD CT HEAD WO CONTRASTon 2022 CT HEAD WO CONTRAST Normal [facility] Drug Scr, Abuse, Uron 2022 Amphetamine(s),Ur Negative Normal NEG [facility] Comment on above: Result Comment: (Pos itive cutoff 1000 ng/mL) Performed By: #### D AU, UAMIC ####[address] [place] [address] Lab Director: Ray Arceo MD Barbiturate(s),Ur Negative Normal NEG [facility] Comment on above: Result Comment: (Pos itive cutoff 200 ng/mL) Performed By: #### D AU, UAMIC ####[address] [place] [address] Lab Director: Ray Arceo MD Benzodiazepine(s) Negative Normal NEG [facility] Comment on above: Result Comment: (Pos itive cutoff 200 ng/mL) Performed By: #### D AU, UAMIC ####[address] [place] [address] Lab Director: Ray Arceo MD Buprenorphrine, Ur Negative Normal NEG [facility] Comment on above: Result Comment: (Pos itive cutoff 5 ng/ml) Performed By: #### D AU, UAMIC ####[address] [place] [address] Lab Director: Ray Arceo MD Cannabinoid(s),Ur Positive Abnormal NEG [facility] Comment on above: Result Comment: (Pos itive cutoff 50 ng/mL) Performed By: #### D AU, UAMIC ####[address] [place] [address] Lab Director: Ray Arceo MD Cocaine Metabolite Negative Normal NEG [facility] Comment on above: Result Comment: (Pos itive cutoff 300 ng/mL) Performed By: #### D AU, UAMIC ####[address] [place] [address] Lab Director: Ray Arceo MD Fentanyl, Urine Negative Normal NEG [facility] Comment on above: Result Comment: (Pos itive cutoff 5 ng/ml) Performed By: #### D AU, UAMIC ####[address] [place] [address] Lab Director: Ray Arceo MD Interpretive Info Assay provides medical screening only. The absence of expected drug(s) and/or Normal [facility] Comment on above: Result Comment: meta bolite(s) may indicate diluted or adulterated urine, limitations of testing or timing of collection.Testing for legal purposes should be confirmed by another method. To request confirmation of test result, please call the lab within 7 days of sample submission. Performed By: #### Aniya GODWIN, UAMIC ####[address] [place], [place] [address] lab Director: Ray Arceo MD Methadone Ql (U) Negative Normal NEG [facility] Comment on above: Result Comment: (Pos itive cutoff 300 ng/mL) Performed By: #### Aniya GODWIN, UAMIC ####[address] [place], [place] [address] lab Director: Ray Arceo MD Opiate(s), Ur Negative Normal NEG [facility] Comment on above: Result Comment: (Pos itive cutoff 300 ng/mL) Performed By: #### Aniya GODWIN, UAMIC ####[address] [place], [place] [address] Lab Director: Ray Arceo MD Oxycodone, Urine Negative Normal [facility] Comment on above: Result Comment: (Pos itive cutoff 100 ng/mL) Performed By: #### Aniya GODWIN, UAMIC ####[address] [place], [place] [id number] Lab Director: Ray Arceo MD Phencyclidine, Ur Negative Normal NEG [facility] Comment on above: Result Comment: (Pos itive cutoff 25 ng/mL) Performed By: #### Aniya AU, UAMIC ####[address] [place] [address] lab Director: Ray Arceo MD Flu A/B Ag Detectionon 06-21 Flu A Ag Detection Negative Normal [facility] Comment on above: Result Comment: for Influenza A Antigen Performed By: #### F LUABA ####[address] [place] [address] Lab Director: Ray Arceo MD Flu B Ag Detection Negative Normal NEG [facility] Comment on above: Result Comment: for Influenza B Antigen. Performed By: #### F LUABA ####[address] [place] [address] Lab Director: Ray Arceo MD Lipaseon 06-21-2023 Lipase [Catalytic activity/Vol] 92 U/L High 13-60 [facility] Comment on above: Performed By: #### C DP, BMP, TROPI, LIP, LIVP, MG ####[address] [place] [address] Lab Director: Ray Arceo MD Liver Profileon 06-21-2023 Albumin [Mass/Vol] 4.2 g/dL Normal 3.5-5.2 [facility] Comment on above: Performed By: #### C DP, BMP, TROPI, LIP, LIVP, MG ####[address] [place] [address] Lab Director: Ray Arceo MD Albumin/Glob Ratio 1.5 Normal 1.0-2.5 [facility] Comment on above: Performed By: #### C DP, BMP, TROPI, LIP, LIVP, MG ####[address] [place] [address] Lab Director: Ray Arceo MD Alkaline Phos 91 U/L Normal 35-104 [facility] Comment on above: Performed By: #### C DP, BMP, TROPI, LIP, LIVP, MG ####[address] [place] [address] Lab Director: Ray Arceo MD ALT [Catalytic activity/Vol] 43 U/L High 5-33 [facility] Comment on above: Performed By: #### C DP, BMP, TROPI, LIP, LIVP, MG ####[address] , [place] [id number] Lab Director: Ray Arceo MD AST [Catalytic activity/Vol] 28 U/L Normal <32 [facility] Comment on above: Performed By: #### C DP, BMP, TROPI, LIP, LIVP, MG ####[address] , [place] [address] lab Director: Ray Arceo MD Bilirubin [Mass/Vol] 0.3 mg/dL Normal 0.3-1.2 [facility] Comment on above: Performed By: #### C DP, BMP, TROPI, LIP, LIVP, MG ####[address] [place] [address] Lab Director: Ray Arceo MD Bilirubin, Indirect Can not be calculated Normal 0.0-1.0 [facility] Comment on above: Performed By: #### C DP, BMP, TROPI, LIP, LIVP, MG ####[address] , [place] [address]83 lab Director: Ray Arceo MD Bilirubin.indirect [Mass/Vol] mg/dL Normal <0.3 [facility] Comment on above: Performed By: #### C DP, BMP, TROPI, LIP, LIVP, MG ####[address] [place] [address] lab Director: Ray Arceo MD Protein [Mass/Vol] 7.0 g/dL Normal 6.4-8.3 [facility] Comment on above: Performed By: #### C DP, BMP, TROPI, LIP, LIVP, MG ####[address] , [place] [id number] Lab Director: Ray Arceo MD Magnesiumon 09-29-2023 Magnesium [Mass/Vol] 2.1 mg/dL Normal 1.6-2.6 [facility] Comment on above: Performed By: #### C DP, BMP, TROPI, LIP, LIVP, MG ####[address] [place] [address] Lab Director: Ray Arceo MD Resp Viral Panelon 3 Adenovirus Not detected Normal [facility] Comment on above: Performed By: #### R [employer] ####[address] [place], [place] [phone] Director: Rishabh Mendieta[address] [place] [address] Lab Director: Ray Arceo MD Bordet.parapertussis Not detected Normal [facility] Comment on above: Performed By: #### R [employer] ####[address] [phone] Director: Rishabh Mendieta[address] [place] [address] Lab Director: Ray Arceo MD Bordetella pertussis Not detected Normal [facility] Comment on above: Performed By: #### R [employer] ####[address] [phone] Director: Rishabh Mendieta[address] [place] [address] Lab Director: Ray Arceo MD Chlamyd.pneumoniae Not detected Normal [facility] Comment on above: Performed By: #### R [employer] ####[facility] [address] [place], [place] [phone] Director: Rishabh Mendieta[address] [place] [address] Lab Director: Ray Arceo MD Coronavirus 229E Not detected [facility] Comment on above: Performed By: #### R [employer] ####[facility] [address] [place] [address] Lab Director: Rishabh Mendieta[address] [place] [phone] Director: Ray Arceo MD Coronavirus HKU1 Not detected Normal [facility] Comment on above: Performed By: #### R [employer] ####[facility] [address] [place] [address] Lab Director: Rishabh Mendieta[address] [place] [address] Lab Director: Ray Arceo MD Coronavirus NL63 Not detected [facility] Comment on above: Performed By: #### R [employer] ####[facility] [address] [place] [address] Lab Director: Rishabh Mendieta[address] [place] [phone] Director: Ray Arceo MD Coronavirus OC43 Not detected [facility] Comment on above: Performed By: #### R [employer] ####[address] [place] [address] Lab Director: Rishabh Mendieta[address] [place] [address] Lab Director: Ray Arceo MD Human Metapneumo Not detected [facility] Comment on above: Performed By: #### R [employer] ####[facility] [address] [place] [address] Lab Director: Rishabh Mendieta[address] [place] [address] Lab Director: Ray Arceo MD Influenza A Not detected Normal [facility] Comment on above: Performed By: #### R [employer] ####[facility] [address] [place] [address] Lab Director: Rishabh Mendieta[address] [place] [address] Lab Director: Ray Arceo MD Influenza B Not detected Normal [facility] Comment on above: Performed By: #### R [employer] ####[facility] [address] [place], [place] [phone] Director: Rishabh Mendieta[address] [place] [address] Lab Director: Ray Arceo MD Mycoplas.pneumoniae Not detected Normal [facility] Comment on above: Result Comment: Perf ormed by multiplexed nucleic acid assay. Performed By: #### R [employer] ####[facility] [address] [place] [address] Lab Director: Rishabh Mendieta[address] [place] [address] Lab Director: Ray Arceo MD Parainfluenza 1 Not detected [facility] Comment on above: Performed By: #### R [employer] ####[facility] [address] [place], [place] [phone])[phone] Director: Rishabh Mendieta[address] [place] [address] Lab Director: Ray Arceo MD Parainfluenza 2 Not detected [facility] Comment on above: Performed By: #### R [employer] ####[facility] [address] [place], [place] [id number])[phone] Director: Rishabh Mendieta[address] [place] [address] Lab Director: Ray Arceo MD Parainfluenza 3 Not detected Normal [facility] Comment on above: Performed By: #### R [employer] ####[facility] [address] [place] [address] Lab Director: [facility] [place] [address] Lab Director: Ray Arceo MD Parainfluenza 4 Not detected Normal [facility] Comment on above: Performed By: #### R [employer] ####[facility] [address] [place], [place] [phone] Director: Rishabh [address] [place] [address] Lab Director: Ray Arceo MD Resp Syncytial Virus Not detected Normal [facility] Comment on above: Performed By: #### R [employer] ####[facility] [address] [place], [place] [phone] Director: Rishabh [facility] [place] [address] Lab Director: Ray Arceo MD Rhino/Enterovirus Not detected [facility] Comment on above: Performed By: #### R [employer] ####[facility] [address] [place] [address] Lab Director: Rishabh Mendieta[address] [place] [address] Lab Director: Ray Arceo MD SARS-CoV-2 (COVID-19) RNA ABRAHAM+probe Ql (Unsp spec) Not detected Normal [facility] Comment on above: Performed By: #### R [employer] ####[facility] [address] [place], [place] [phone])[phone] Director: Rishabh Mendieta, [address] [place] [address] Lab Director: Ray Arceo MD Source: .NASOPHARYNGEAL SWAB Normal [facility] Comment on above: Performed By: #### R [employer] ####[address] [place], [place] 5877308 Lab Director: Rishabh Mendieta, [address] [place] [address] Lab Director: Ray Arceo MD [id number] 06-21-2023 SARS-CoV-2 (COVID-19) RNA ABRAHAM+probe Ql (Unsp spec) Not detected Normal NOTDET [facility] Comment on above: Result Comment: Chandani aniya NAAT: The specimen is NEGATIVE for SARS-CoV-2, the novel coronavirus associated with COVID-19.The ID NOW COVID-19 assay is designed to detect the virus that causes COVID-19 in patients with signs and symptoms of infection who are suspected of COVID-19.An individual without symptoms of COVID-19 and who is not shedding SARS-CoV-2 virus would expect to have a negative (not detected) result in this assay.Negative results should be treated as presumptive and, if inconsistent with clinical signs and symptoms or necessary for patient management,should be tested with an alternative molecular assay. Negative results do not preclude SARS-CoV-2 infection andshould not be used as the sole basis for patient management decisions.Fact sheet for Healthcare Providers: https://www.fda.gov/media/248777/downloadFact sheet for Patients: https://www.fda.gov/media/757291/downloadMethodology: Isothermal Nucleic Acid Amplification Performed By: #### C OVRB ####[address] [place] [address] lab Director: Ray Arceo MD Thyroid Stim. Horm.on 2022 Thyroid Stim. Horm. 1.19 uIU/mL Normal 0.30-5.00 [facility] Comment on above: Performed By: #### F T4 ####[address] [place] [address] Lab Director: Rishabh Mnedieta MD#### TSH ####[address] [place] [address] Lab Director: Ray Arceo MD Thyroxine, Freeon 06-21-2023 Thyroxine, Free 1.2 ng/dL Normal 0.9-1.[address] [facility] Comment on above: Performed By: #### F T4 ####[address] [place] [address] Lab Director: Rishabh Mendieta MD#### TSH ####[address] [place] [address] lab Director: Ray Arceo MD Troponinon 06-21-2023 Troponin, High Sens <6 Normal 0-14 [facility] Comment on above: Result Comment: High Sensitivity Troponin values cannot be compared with other Troponin methodologies. Performed By: #### C DP, BMP, TROPI, LIP, LIVP, MG ####[address] [place] [address] Lab Director: Ray Arceo MD Urinalysis w/ Microon 2022 Bilirubin, SemiQt,Ur Negative Normal NEG [facility] Comment on above: Performed By: #### D AU, UAMIC ####[address] , [place] 1394783 Lab Director: Ray Arceo MD Blood, Urine Negative Normal NEG [facility] Comment on above: Performed By: #### D AU, UAMIC ####[address] [place] [address] Lab Director: Ray Arceo MD Clarity (U) Clear Normal CLEAR [facility] Comment on above: Performed By: #### D AU, UAMIC ####[address] [place] [address] lab Director: Ray Arceo MD Color (U) Yellow Normal YEL [facility] Comment on above: Performed By: #### D AU, UAMIC ####[address] , [place] 4109783 lab Director: Ray Arceo MD Epithelial cells LM Ql (Urine sed) 0 TO 2 Normal 0-25 [facility] Comment on above: Performed By: #### D AU, UAMIC ####[address] , [place] 0468183 lab Director: Ray Arceo MD Glucose Ql (U) Negative Normal NEG [facility] Comment on above: Performed By: #### D AU, UAMIC ####[address] , [place] 1246083 lab Director: Ray Arceo MD Ketones Ql (U) Negative Normal NEG [facility] Comment on above: Performed By: #### D AU, UAMIC ####[address] , [place] 6043683 lab Director: Ray Arceo MD Leukocyte esterase Test strip Ql (U) Negative Normal NEG [facility] Comment on above: Performed By: #### D AU, UAMIC ####[address] , [place] 2765683 lab Director: Ray Arceo MD Nitrite,Ur Negative Normal NEG [facility] Comment on above: Performed By: #### D AU, UAMIC ####[address] , [place] 6112483 lab Director: Ray Arceo MD PH,Ur 7.0 Normal 5.0-9.0 [facility] Comment on above: Performed By: #### D AU, UAMIC ####[address] , [place] 0891183 lab Director: Ray Arceo MD Protein Ql (U) Negative Normal NEG [facility] Comment on above: Performed By: #### D AU, UAMIC ####[facility] [place] , [place] 3728383 lab Director: Ray Arceo MD Spec. [place],Ur 1.010 Normal 1.010-1.020 [facility] Comment on above: Performed By: #### D AU, UAMIC ####[address] , [place] 8425283 lab Director: Ray Arceo MD Urine RBC's None Normal 0-2 [facility] Comment on above: Performed By: #### D AU, UAMIC ####[address] , [place] 6529083 lab Director: Ray Arceo MD Urine WBC's None Normal 0-5 [facility] Comment on above: Performed By: #### D AU, UAMIC ####[address] , [place] 5276283 lab Director: Ray Arceo MD Urobilinogen,Ur Normal Normal 0.0-1.[address] [facility] Comment on above: Performed By: #### D AU, UAMIC ####[address] , [place] 1203483 lab Director: Ray Arceo MD XR CHEST PORTABLEon 06-21-20 23 XR CHEST PORTABLE Normal [facility] CT CHEST PULMONARY EMBOLISM W CONTRASTon 06-16-2023 CT CHEST PULMONARY EMBOLISM W CONTRAST Normal [facility] Thyroid Stim. Horm.on 2022 Thyroid Stim. Horm. 1.75 uIU/mL Normal 0.30-5.00 [facility] Comment on above: Performed By: #### T SH ####[address] , [place] 8589983 lab Director: Ray Arceo MD Troponinon 06-16-2023 Troponin, High Sens 6 ng/L Normal 0-14 [facility] Comment on above: Result Comment: High Sensitivity Troponin values cannot be compared with other Troponin methodologies. Performed By: #### T LUIS A ####[facility] [place] , [place] 9215783 Lab Director: Ray Arceo MD Basic Metabolic Profon 06-15 Anion gap [Moles/Vol] 12 mmol/L Normal 9-17 [facility] Comment on above: Performed By: #### T LUIS A MG, BMP ####[address] , [place] 8567283 Lab Director: Ray Arceo MD BUN/CRE Ratio 13 Normal 9-20 [facility] Comment on above: Performed By: #### Buzz GUNN MG, BMP ####[address] , [place] 8507683 Lab Director: Ray Arceo MD Calcium [Mass/Vol] 10.4 mg/dL Normal 8.6-10.4 [facility] Comment on above: Performed By: #### T LUIS A MG, BMP ####[address] , [place] 5792583 Lab Director: Ray Arceo MD Chloride [Moles/Vol] 103 mmol/L Normal 98-107 [facility] Comment on above: Performed By: #### T LUIS A MG, BMP ####[address] , [place] 9557483 Lab Director: Ray Arceo MD CO2 [Moles/Vol] 26 mmol/L Normal 20-[address] [facility] Comment on above: Performed By: #### T LUIS A MG, BMP ####[address] , [place] 8069083 Lab Director: Ray Arceo MD Creatinine [Mass/Vol] 0.8 mg/dL Normal 0.5-0.9 [facility] Comment on above: Performed By: #### T MG LUIS A, BMP ####[address] [place] [address] Lab Director: Ray Arceo MD GFR/1.73 sq M.predicted among non-blacks MDRD (S/P/Bld) [Vol rate/Area] mL/min/{1.73_m2} Normal >60 [facility] Comment on above: Result Comment: Thes e results are not intended for use in patients <18 years of age.eGFR results are calculated without a race factor using the 2020 CKD-EPI equation.Careful clinical correlation is recommended, particularly when comparing to results calculated using previous equations.The CKD-EPI equation is less accurate in patients with extremes of muscle mass, extra-renal metabolism of creatine, excessive creatine ingestion, or following therapy that affects renal tubular secretion. Performed By: #### T MG LUIS A, BMP ####[address] , [place] 7454183 lab Director: Ray Arceo MD Glucose [Mass/Vol] 144 mg/dL High 70-99 [facility] Comment on above: Performed By: #### T MG LUIS A, BMP ####[address] , [place] 2957883 lab Director: Ray Arceo MD Potassium [Moles/Vol] 4.0 mmol/L Normal 3.7-5.3 [facility] Comment on above: Performed By: #### T LUIS A MG, BMP ####[address] , [place] 4215983 lab Director: Ray Arceo MD Sodium [Moles/Vol] 141 mmol/L Normal 135-144 [facility] Comment on above: Performed By: #### T LUIS A MG, BMP ####[address] , [place] 9309383 lab Director: Ray Arceo MD Urea nitrogen [Mass/Vol] 10 mg/dL Normal 6-20 [facility] Comment on above: Performed By: #### T LUIS A MG, BMP ####[address] , [place] [address])[phone] Director: Ray Arceo MD CBC with Diffon 06-15-2023 Abs. Basophil 0.06 k/uL Normal 0.00-0.20 [facility] Comment on above: Performed By: #### C DP ####[address] , [place] [address])[phone] Director: Ray Arceo MD Abs.Imm.Granulocyte 0.07 k/uL Normal 0.00-0.30 [facility] Comment on above: Performed By: #### C DP ####[address] , [place] [address])[phone] Director: Ray Arceo MD Abs.Neutrophil (Seg) 8.30 k/uL High 1.50-8.10 [facility] Comment on above: Performed By: #### C DP ####[address] , [facility]83[facility])[phone] Director: Ray Arceo MD Basophils/100 WBC (Bld) 0 % Normal 0-2 [facility] Comment on above: Performed By: #### C DP ####[address] , [facility]83[facility])[phone] Director: Ray Arceo MD Eosinophils (Bld) [#/Vol] 0.16 10*3/uL Normal 0.00-0.44 [facility] Comment on above: Performed By: #### C DP ####[address] , [place] [address])[phone] Director: Ray Arceo MD Eosinophils/100 WBC (Bld) 1 % Normal 1-4 [facility] Comment on above: Performed By: #### C DP ####[address] , [place] 6150083 Lab Director: Ray Arceo MD Erythrocyte distribution width (RBC) [Ratio] 12.8 % Normal 11.8-14.4 [facility] Comment on above: Performed By: #### C DP ####[address] , [facility]83 Lab Director: Ray Arceo MD Hematocrit (Bld) [Volume fraction] 47.9 % High 36.3-47.1 [facility] Comment on above: Performed By: #### C DP ####[address] , [facility]83 Lab Director: Ray Arceo MD Hemoglobin (Bld) [Mass/Vol] 16.0 g/dL High 11.9-15.1 [facility] Comment on above: Performed By: #### C DP ####[address] , [facility]83 Lab Director: Ray Arceo MD Immature granulocytes/100 WBC (Bld) 1 % High 0 [facility] Comment on above: Performed By: #### C DP ####[address] , [facility]83 Lab Director: Ray Arceo MD Lymphocytes (Bld) [#/Vol] 5.04 10*3/uL High 1.10-3.70 [facility] Comment on above: Performed By: #### C DP ####[address] , [place] 6258383 Lab Director: Ray Arceo MD Lymphocytes/100 WBC (Bld) 35 % Normal 24-43 [facility] Comment on above: Performed By: #### C DP ####[address] , [facility]83 Lab Director: Ray Arceo MD MCH (RBC) [Entitic mass] 29.9 pg Normal 25.2-33.5 [facility] Comment on above: Performed By: #### C DP ####[address] , [facility]83[facility])[phone] Director: Ray Arceo MD MCHC (RBC) [Mass/Vol] 33.4 g/dL Normal 28.4-34.8 [facility] Comment on above: Performed By: #### C DP ####[address] , [place] [address] Lab Director: Ray Arceo MD MCV (RBC) [Entitic vol] 89.5 fL Normal 82.6-102.9 [facility] Comment on above: Performed By: #### C DP ####[address] , [place] [address])[phone] Director: Ray Arceo MD Monocytes (Bld) [#/Vol] 0.75 10*3/uL Normal 0.10-1.20 [facility] Comment on above: Performed By: #### C DP ####[address] , [facility]83[facility])[phone] Director: Ray Arceo MD Monocytes/100 WBC (Bld) 5 % Normal 3-12 [facility] Comment on above: Performed By: #### C DP ####[address] , [facility]83[facility])[phone] Director: Ray Arceo MD Neutrophil (Seg) 58 % Normal 36-65 [facility] Comment on above: Performed By: #### C DP ####[address] , [facility]83 Lab Director: Ray Arceo MD NRBC Automated 0.0 per 100 WBC Normal 0.0 [facility] Comment on above: Performed By: #### C DP ####[address] , [place] 5638283 Lab Director: Ray Arceo MD Platelet mean volume (Bld) [Entitic vol] 10.4 fL Normal 8.1-13.5 [facility] Comment on above: Performed By: #### C DP ####[address] , [place] 8851083 Lab Director: Ray Arceo MD Platelets (Bld) [#/Vol] 367 10*3/uL Normal 138-453 [facility] Comment on above: Performed By: #### C DP ####[address] , [place] 9088783 Lab Director: Ray Arceo MD RBC (Bld) [#/Vol] 5.35 10*6/uL High 3.95-5.11 [facility] Comment on above: Performed By: #### C DP ####[address] [place] [address] Lab Director: Ray Arceo MD WBC (Bld) [#/Vol] 14.4 10*3/uL High 3.5-11.3 [facility] Comment on above: Performed By: #### C DP ####[address] , [place] 4453283 Lab Director: Ray Arceo MD Magnesiumon 06-15-2023 Magnesium [Mass/Vol] 2.0 mg/dL Normal 1.6-2.6 [facility] Comment on above: Performed By: #### T MG LUIS A BMP ####[address] , [place] 3161983 Lab Director: Ray Arceo MD Troponinon 06-15-2023 Troponin, High Sens <6 Normal 0-14 [facility] Comment on above: Result Comment: High Sensitivity Troponin values cannot be compared with other Troponin methodologies. Performed By: #### T ROPI, MG, BMP ####[facility] [place] , [place] 2837883 Lab Director: Ray Arceo MD UA w/Reflex Cultureon 2022 Bilirubin, SemiQt,Ur Negative Normal NEG [facility] Comment on above: Performed By: #### U MICAO, UAX ####[address] [place] [address] Lab Director: Ray Arceo MD Blood, Urine Negative Normal NEG [facility] Comment on above: Performed By: #### U MICAO, UAX ####[address] [place] [address] Lab Director: Ray Arceo MD Clarity (U) Clear Normal CLEAR [facility] Comment on above: Performed By: #### U MICAO, UAX ####[address] [place] [address] Lab Director: Ray Arceo MD Color (U) Yellow Normal YEL [facility] Comment on above: Performed By: #### U MICAO, UAX ####[address] [place] [address] Lab Director: Ray Arceo MD Glucose Ql (U) Negative Normal NEG [facility] Comment on above: Performed By: #### U MICAO, UAX ####[address] [place] [address] Lab Director: Ray Arceo MD Ketones Ql (U) Negative Normal NEG [facility] Comment on above: Performed By: #### U MICAO, UAX ####[address] , [place] 2995083 Lab Director: Ray Arceo MD Leukocyte esterase Test strip Ql (U) Negative Normal NEG [facility] Comment on above: Performed By: #### U MICAO, UAX ####[address] , [place] 3297583 lab Director: Ray Arceo MD Nitrite,Ur Negative Normal NEG [facility] Comment on above: Performed By: #### U MICAO, UAX ####[address] , [place] 1693283 lab Director: Ray Arceo MD PH,Ur 6.0 Normal 5.0-9.0 [facility] Comment on above: Performed By: #### U MICAO, UAX ####[address] , [place] 8505383 lab Director: Ray Arceo MD Protein Ql (U) Negative Normal NEG [facility] Comment on above: Performed By: #### U MICAO, UAX ####[address] , [place] 3162183 lab Director: Ray Arceo MD Spec. [place],Ur 1.010 Normal 1.010-1.020 [facility] Comment on above: Performed By: #### U MICAO, UAX ####[address] , [place] 9469483 lab Director: Ray Arceo MD Urobilinogen,Ur Normal Normal 0.0-1.[address] [facility] Comment on above: Performed By: #### U MICAO, UAX ####[address] , [place] 0975183 lab Director: Ray Arceo MD Urinalysis,Microon 3 Epithelial cells LM Ql (Urine sed) None Normal 0-25 [facility] Comment on above: Performed By: #### U MICAO, UAX ####[address] [place] [address] lab Director: Ray Arceo MD Urine RBC's None Normal 0-2 [facility] Comment on above: Performed By: #### U MICAO, UAX ####[address] , [place] 4557683 Lab Director: Ray Arceo MD Urine WBC's None Normal 0-5 [facility] Comment on above: Performed By: #### U MICAO, UAX ####[address] , [place] 9275783 Lab Director: Ray Arceo MD Basic Metabolic Profon 06-03 Anion gap [Moles/Vol] 11 mmol/L Normal 9-17 [facility] Comment on above: Performed By: #### C DP, MG, BMP ####[address] , [place] 1747083 Lab Director: Ray Arceo MD BUN/CRE Ratio 16 Normal 9-20 [facility] Comment on above: Performed By: #### C DP, MG, BMP ####[address] , [place] 6440883 Lab Director: Ray Arceo MD Calcium [Mass/Vol] 9.8 mg/dL Normal 8.6-10.4 [facility] Comment on above: Performed By: #### C DP, MG, BMP ####[address] [place] [address] Lab Director: Ray Arceo MD Chloride [Moles/Vol] 104 mmol/L Normal 98-107 [facility] Comment on above: Performed By: #### C DP, MG, BMP ####[address] , [place] 5152283 Lab Director: Ray Arceo MD CO2 [Moles/Vol] 24 mmol/L Normal 20-[address] [facility] Comment on above: Performed By: #### C DP, MG, BMP ####[address] [place] [address] Lab Director: Ray Arceo MD Creatinine [Mass/Vol] 0.7 mg/dL Normal 0.5-0.9 [facility] Comment on above: Performed By: #### C DP, MG, BMP ####[address] , [place] 5226183 lab Director: Ray Arceo MD GFR/1.73 sq M.predicted among non-blacks MDRD (S/P/Bld) [Vol rate/Area] mL/min/{1.73_m2} Normal >60 [facility] Comment on above: Result Comment: Thes e results are not intended for use in patients <18 years of age.eGFR results are calculated without a race factor using the 2020 CKD-EPI equation.Careful clinical correlation is recommended, particularly when comparing to results calculated using previous equations.The CKD-EPI equation is less accurate in patients with extremes of muscle mass, extra-renal metabolism of creatine, excessive creatine ingestion, or following therapy that affects renal tubular secretion. Performed By: #### C DP, MG, BMP ####[address] [place] [address] Lab Director: Ray Arceo MD Glucose [Mass/Vol] 190 mg/dL High 70-99 [facility] Comment on above: Performed By: #### C DP, MG, BMP ####[address] , [place] 1843883 Lab Director: Ray Arceo MD Potassium [Moles/Vol] 3.6 mmol/L Low 3.7-5.3 [facility] Comment on above: Performed By: #### C DP, MG, BMP ####[address] [place] [address] lab Director: Ray Arceo MD Sodium [Moles/Vol] 139 mmol/L Normal 135-144 [facility] Comment on above: Performed By: #### C DP, MG, BMP ####[address] , [place] [id number] Lab Director: Ray Arceo MD Urea nitrogen [Mass/Vol] 11 mg/dL Normal 6-20 [facility] Comment on above: Performed By: #### C DP, MG, BMP ####[address] , [place] [id number] Lab Director: Ray Arceo MD CBC with Diffon 06-03-2023 Abs. Basophil 0.05 k/uL Normal 0.00-0.20 [facility] Comment on above: Performed By: #### C DP, MG, BMP ####[address] , [place] [id number] Lab Director: Ray Arceo MD Abs.Imm.Granulocyte 0.05 k/uL Normal 0.00-0.30 [facility] Comment on above: Performed By: #### C DP, MG, BMP ####[address] , [place] [id number] Lab Director: Ray Arceo MD Abs.Neutrophil (Seg) 6.88 k/uL Normal 1.50-8.10 [facility] Comment on above: Performed By: #### C DP, MG, BMP ####[address] , [place] [id number] Lab Director: Ray Arceo MD Basophils/100 WBC (Bld) 0 % Normal 0-2 [facility] Comment on above: Performed By: #### C DP, MG, BMP ####[address] , [place] [id number] Lab Director: Ray Arceo MD Eosinophils (Bld) [#/Vol] 0.12 10*3/uL Normal 0.00-0.44 [facility] Comment on above: Performed By: #### C DP, MG, BMP ####[address] , [place] [address] [facility] Director: Ray Arceo MD Eosinophils/100 WBC (Bld) 1 % Normal 1-4 [facility] Comment on above: Performed By: #### C DP, MG, BMP ####[address] , [facility]83 Lab Director: Ray Arceo MD Erythrocyte distribution width (RBC) [Ratio] 12.8 % Normal 11.8-14.4 [facility] Comment on above: Performed By: #### C DP, MG, BMP ####[address] , [place] [address] Lab Director: Ray Arceo MD Hematocrit (Bld) [Volume fraction] 41.7 % Normal 36.3-47.1 [facility] Comment on above: Performed By: #### C DP, MG, BMP ####[address] , [place] [address])[phone] Director: Ray Arceo MD Hemoglobin (Bld) [Mass/Vol] 14.1 g/dL Normal 11.9-15.1 [facility] Comment on above: Performed By: #### C DP, MG, BMP ####[address] , [place] [address])[phone] Director: Ray Arceo MD Immature granulocytes/100 WBC (Bld) 0 % Normal 0 [facility] Comment on above: Performed By: #### C DP, MG, BMP ####[address] , [place] [address])[phone] Director: Ray Arceo MD Lymphocytes (Bld) [#/Vol] 4.09 10*3/uL High 1.10-3.70 [facility] Comment on above: Performed By: #### C DP, MG, BMP ####[address] , [place] [address] Lab Director: Ray Arceo MD Lymphocytes/100 WBC (Bld) 35 % Normal 24-43 [facility] Comment on above: Performed By: #### C DP, MG, BMP ####[address] , [facility]83 Lab Director: Ray Arceo MD MCH (RBC) [Entitic mass] 30.3 pg Normal 25.2-33.5 [facility] Comment on above: Performed By: #### C DP, MG, BMP ####[address] [place] [id number])[phone] Director: Ray Arceo MD MCHC (RBC) [Mass/Vol] 33.8 g/dL Normal 28.4-34.8 [facility] Comment on above: Performed By: #### C DP, MG, BMP ####[address] , [place] [address])[phone] Director: Ray Arceo MD MCV (RBC) [Entitic vol] 89.7 fL Normal 82.6-102.9 [facility] Comment on above: Performed By: #### C DP, MG, BMP ####[address] , [facility]83[facility])[phone] Director: Ray Arceo MD Monocytes (Bld) [#/Vol] 0.50 10*3/uL Normal 0.10-1.20 [facility] Comment on above: Performed By: #### C DP, MG, BMP ####[address] [place] [address] Lab Director: Ray Arceo MD Monocytes/100 WBC (Bld) 4 % Normal 3-12 [facility] Comment on above: Performed By: #### C DP, MG, BMP ####[address] , [place] [id number] Lab Director: Ray Arceo MD Neutrophil (Seg) 60 % Normal 36-65 [facility] Comment on above: Performed By: #### C DP, MG, BMP ####[address] , [facility]83 Lab Director: Ray Arceo MD NRBC Automated 0.0 per 100 WBC Normal 0.0 [facility] Comment on above: Performed By: #### C DP, MG, BMP ####[address] , [facility]83 Lab Director: Ray Arceo MD Platelet mean volume (Bld) [Entitic vol] 9.8 fL Normal 8.1-13.5 [facility] Comment on above: Performed By: #### C DP, MG, BMP ####[address] , [place] [address] Lab Director: Ray Arceo MD Platelets (Bld) [#/Vol] 292 10*3/uL Normal 138-453 [facility] Comment on above: Performed By: #### C DP, MG, BMP ####[address] , [place] [address])[phone] Director: Ray Arceo MD RBC (Bld) [#/Vol] 4.65 10*6/uL Normal 3.95-5.11 [facility] Comment on above: Performed By: #### C DP, MG, BMP ####[address] , [place] [address])[phone] Director: Ray Arceo MD WBC (Bld) [#/Vol] 11.7 10*3/uL High 3.5-11.3 [facility] Comment on above: Performed By: #### C DP, MG, BMP ####[address] , [place] [id number] Lab Director: Ray Arceo MD Magnesiumon 06-03-2023 Magnesium [Mass/Vol] 2.0 mg/dL Normal 1.6-2.6 [facility] Comment on above: Performed By: #### C DP, MG, BMP ####[facility] [place] [address] lab Director: Ray Arceo MD CBC with Auto Differentialon 03-23-2023 Basophils (Bld) [#/Vol] 0.04 10*3/uL [facility] Basophils/100 WBC (Bld) 0 % 0 - 2 % B ON [facility] Eosinophils (Bld) [#/Vol] 0.12 10*3/uL [facility] Eosinophils/100 WBC (Bld) 1 % 1 - 4 % [facility] Erythrocyte distribution width (RBC) [Ratio] 12.6 % 11.8 - 14.4 % [facility] Hematocrit (Bld) [Volume fraction] 43.9 % 36.3 - 47.1 % [facility] Hemoglobin (Bld) [Mass/Vol] 14.9 g/dL 11.9 - 15.1 g/dL [facility] Immature granulocytes (Bld) [#/Vol] 0.03 10*3/uL [facility] Immature granulocytes/100 WBC (Bld) 0 % 0 [facility] Interpretation and review of laboratory results Abnormal [facility] Lymphocytes/100 WBC (Bld) 37 % 24 - 43 % [facility] Lymphocytes/100 WBC (Bld) 3.77 % High [facility] MCH (RBC) [Entitic mass] 30.3 pg 25.2 - 33.5 pg [facility] MCHC (RBC) [Mass/Vol] 33.9 g/dL 28.4 - 34.8 g/dL [facility] MCV (RBC) [Entitic vol] 89.4 fL 82.6 - 102.9 fL [facility] Monocytes/100 WBC (Bld) 5 % 3 - 12 % B [facility] Monocytes/100 WBC (Bld) 0.56 % B [facility] Neutrophils/100 WBC (Bld) 57 % 36 - 65 % [facility] Nucleated RBC/100 WBC (Bld) [Ratio] 0.0 % 0.0 per 100 WBC [facility] Platelet mean volume (Bld) [Entitic vol] 10.2 fL 8.1 - 13.5 fL [facility] Platelets (Bld) [#/Vol] 315 10*3/uL [facility] RBC (Bld) [#/Vol] 4.91 10*6/uL 3.95 - 5.1 1 m/uL [facility] Segmented neutrophils/100 WBC (Bld) 5.82 % [facility] WBC other (Bld) [#/Vol] 10.3 B ON [facility] CT Head W/O Contraston 03-23 No acute intracranial abnormality. [facility] EXAMINATION: CT OF THE HEAD WITHOUT CONTRAST 03/23/2023 6:29 pm TECHNIQUE: CT of the head was performed without the administration of intravenous contrast. Automated exposure control, iterative reconstruction, and/or weight based adjustment of the mA/kV was utilized to reduce the radiation dose to as low as reasonably achievable. COMPARISON: 08/13/2020 HISTORY: ORDERING SYSTEM PROVIDED HISTORY: pain, s/p fall TECHNOLOGIST PROVIDED HISTORY: pain, s/p fall Decision Support Exception - unselect if not a suspected or confirmed emergency medical condition->Emergenc y Medical Condition (MA) Is the patient ?->No FINDINGS: BRAIN/VENTRICLES: There is no acute intracranial hemorrhage, mass effect or midline shift. No abnormal extra-axial fluid collection. The olivares-white differentiation is maintained without evidence of an acute infarct. There is no evidence of hydrocephalus. ORBITS: The visualized portion of the orbits demonstrate no acute abnormality. SINUSES: The visualized paranasal sinuses and mastoid air cells demonstrate no acute abnormality. SOFT TISSUES/SKULL: No acute abnormality of the visualized skull or soft tissues. [facility] Ina Sheldon MD - 03/23/2023 EXAMINATION: CT OF THE HEAD WITHOUT CONTRAST 03/23/2023 6:29 pm TECHNIQUE: CT of the head was performed without the administration of intravenous contrast. Automated exposure control, iterative reconstruction, and/or weight based adjustment of the mA/kV was utilized to reduce the radiation dose to as low as reasonably achievable. COMPARISON: 08/13/2020 HISTORY: ORDERING SYSTEM PROVIDED HISTORY: pain, s/p fall TECHNOLOGIST PROVIDED HISTORY: pain, s/p fall Decision Support Exception - unselect if not a suspected or confirmed emergency medical condition->Emergenc y Medical Condition (MA) Is the patient ?->No FINDINGS: BRAIN/VENTRICLES: There is no acute intracranial hemorrhage, mass effect or midline shift. No abnormal extra-axial fluid collection. The olivares-white differentiation is maintained without evidence of an acute infarct. There is no evidence of hydrocephalus. ORBITS: The visualized portion of the orbits demonstrate no acute abnormality. SINUSES: The visualized paranasal sinuses and mastoid air cells demonstrate no acute abnormality. SOFT TISSUES/SKULL: No acute abnormality of the visualized skull or soft tissues. IMPRESSION: No acute intracranial abnormality. [facility] Radiology Study observation (narrative) [facility] CT Head W/O ContrastOrdered By: Ina Sheldon on 03-23-2023 [facility] Work Phone: Comprehensive Metabolic Pane mando 03-23-2023 Albumin [Mass/Vol] 4.5 g/dL 3.5 - 5.2 g/dL [facility] Albumin/Globulin [Mass ratio] 1.6 {ratio} 1.0 - 2.5 [facility] ALP [Catalytic activity/Vol] 94 U/L 35 - 104 U/L [facility] ALT [Catalytic activity/Vol] 58 U/L High 5 - 33 U/L [facility] Anion gap [Moles/Vol] 10 mmol/L 9 - 17 mmol/L [facility] AST [Catalytic activity/Vol] 40 U/L High NINF - 32 U/L [facility] Bilirubin [Mass/Vol] 0.4 mg/dL 0.3 - 1 .2 mg/dL [facility] Calcium [Mass/Vol] 9.7 mg/dL 8.6 - 10. 4 mg/dL [facility] Chloride [Moles/Vol] 104 mmol/L 98 - 10 7 mmol/L [facility] CO2 [Moles/Vol] 25 mmol/L 20 - 31 mmol/L [facility] Creatinine [Mass/Vol] 0.67 mg/dL 0.50 - 0.90 mg/dL [facility] GFR/1.73 sq M.predicted MDRD (S/P/Bld) [Vol rate/Area] - PINF [facility] Comment on above: These results are not intended for use in patients <18 years of age. eGFR results are calculated without a race factor using the 2020 CKD-EPI equation. Careful clinical correlation is recommended, particularly when comparing to results calculated using previous equations. The CKD-EPI equation is less accurate in patients with extremes of muscle mass, extra-renal metabolism of creatine, excessive creatine ingestion, or following therapy that affects renal tubular secretion. Glucose [Mass/Vol] 101 mg/dL High 70 - 99 mg/dL [facility] Interpretation and review of laboratory results Abnormal [facility] Potassium [Moles/Vol] 3.9 mmol/L 3.7 - 5.3 mmol/L [facility] Protein [Mass/Vol] 7.4 g/dL 6.4 - 8.3 g/dL [facility] Sodium [Moles/Vol] 139 mmol/L 135 - 144 mmol/L [facility] Urea nitrogen [Mass/Vol] 9 mg/dL 6 - 20 mg/dL [facility] Urea nitrogen/Creatinine [Mass ratio] 13 mg/mg 9 - 20 [facility] Troponinon 03-23-2023 Troponin I.cardiac High sensitivity method [Mass/Vol] ng/L 0 - 14 ng/L [facility] Comment on above: High Sensitivity Tro ponin values cannot be compared with other Troponin methodologies. [facility] XR CHEST PORTABLEon 03-23-20 23 No acute abnormality. [facility] EXAMINATION: ONE XRAY VIEW OF THE CHEST 03/23/2023 6:26 pm COMPARISON: None. HISTORY: ORDERING SYSTEM PROVIDED HISTORY: syncope FINDINGS: Heart size is normal. No focal consolidation in the lungs. No pleural effusion or pneumothorax. [facility] Jayda Castano MD - 03/23/2023 EXAMINATION: ONE XRAY VIEW OF THE CHEST 03/23/2023 6:26 pm COMPARISON: None. HISTORY: ORDERING SYSTEM PROVIDED HISTORY: syncope FINDINGS: Heart size is normal. No focal consolidation in the lungs. No pleural effusion or pneumothorax. IMPRESSION: No acute abnormality. [facility] Radiology Study observation (narrative) [facility] XR CHEST PORTABLEOrdered By: Jayda Castano on 03-23-2023 [facility] Work Phone: Beta-Hydroxybutyrateon 02-18 Beta hydroxybutyrate [Mass/Vol] 0.13 mmol/L 0.02 - 0.27 mmol/L [facility] Blood gas, venouson 02-19-20 HCO3 (Bld) [Moles/Vol] 22.1 mmol/L Low 24.0 - 30.0 mmol/L [facility] Interpretation and review of laboratory results Abnormal [facility] Negative Base Excess, Cain 2.6 mmol/L High 0.0 - 2.0 mmol/L [facility] Oxygen saturation in Blood 95.7 % High 60.0 - 85.0 % [facility] pCO2, Cain 38.3 Low [facility] pH, Cain 7.379 7.32 - 7.42 [facility] pO2, Cain 80.4 High [facility] Pt Temp 37.0 [facility] CBC with Auto Differentialon 02-18-2023 Basophils (Bld) [#/Vol] 0.06 10*3/uL [facility] Basophils/100 WBC (Bld) 0 % 0 - 2 % B [facility] Eosinophils (Bld) [#/Vol] 0.06 10*3/uL [facility] Eosinophils/100 WBC (Bld) 0 % Low 1 - 4 % [facility] Erythrocyte distribution width (RBC) [Ratio] 12.6 % 11.8 - 14.4 % [facility] Hematocrit (Bld) [Volume fraction] 43.0 % 36.3 - 47.1 % [facility] Hemoglobin (Bld) [Mass/Vol] 14.6 g/dL 11.9 - 15.1 g/dL [facility] Immature granulocytes (Bld) [#/Vol] 0.09 10*3/uL [facility] Immature granulocytes/100 WBC (Bld) 1 % High 0 [facility] Interpretation and review of laboratory results Abnormal [facility] Lymphocytes/100 WBC (Bld) 22 % Low 24 - 43 % [facility] Lymphocytes/100 WBC (Bld) 3.88 % High [facility] MCH (RBC) [Entitic mass] 30.3 pg 25.2 - 33.5 pg [facility] MCHC (RBC) [Mass/Vol] 34.0 g/dL 28.4 - 34.8 g/dL [facility] MCV (RBC) [Entitic vol] 89.2 fL 82.6 - 102.9 fL [facility] Monocytes/100 WBC (Bld) 6 % 3 - 12 % B ON [facility] Monocytes/100 WBC (Bld) 1.03 % B [facility] Neutrophils/100 WBC (Bld) 71 % High 36 - 65 % [facility] NRBC Automated 0.0 0.0 per 100 WBC [facility] Platelet mean volume (Bld) [Entitic vol] 10.4 fL 8.1 - 13.5 fL [facility] Platelets (Bld) [#/Vol] 338 10*3/uL [facility] RBC (Bld) [#/Vol] 4.82 10*6/uL 3.95 - 5.1 1 m/uL [facility] Segmented neutrophils/100 WBC (Bld) 12.96 % High [facility] WBC other (Bld) [#/Vol] 18.1 High B ON [facility] CT ABDOMEN PELVIS W IV CONTR AST Additional Contrast? Noneon 02-18-2023 1. Few nondilated fluid-filled loops of small and large bowel this likely represents an enteritis. 2. No CT evidence for appendicitis. [facility] EXAMINATION: CT OF THE ABDOMEN AND PELVIS WITH CONTRAST 02/18/2023 9:18 pm TECHNIQUE: CT of the abdomen and pelvis was performed with the administration of intravenous contrast. Multiplanar reformatted images are provided for review. Automated exposure control, iterative reconstruction, and/or weight based adjustment of the mA/kV was utilized to reduce the radiation dose to as low as reasonably achievable. COMPARISON: None. HISTORY: ORDERING SYSTEM PROVIDED HISTORY: RLQ abd pain TECHNOLOGIST PROVIDED HISTORY: RLQ abd pain Decision Support Exception - unselect if not a suspected or confirmed emergency medical condition->Emergenc y Medical Condition (MA) FINDINGS: Lower Chest: The lung bases are clear. Organs: The liver is enlarged. There is diffuse low-attenuation of the liver. The gallbladder has been surgically removed. The spleen, pancreas and adrenal glands appear unremarkable. There is symmetric enhancement of the kidneys. No hydronephrosis is seen. No ureteral or bladder calculi are seen. GI/Bowel: Evaluation of the bowel is limited as no enteric contrast was given. No dilated loops of bowel are seen. The appendix is not dilated. There are few nondilated fluid-filled loops of small and large bowel. Pelvis: No pelvic masses or fluid collections are seen. Peritoneum/Retroper itoneum: The abdominal aorta is not aneurysmal. No retroperitoneal or mesenteric lymphadenopathy is seen. Bones/Soft Tissues: No acute bony abnormalities are noted. [facility] Patrick Ceja MD - 02/18/2023 EXAMINATION: CT OF THE ABDOMEN AND PELVIS WITH CONTRAST 02/18/2023 9:18 pm TECHNIQUE: CT of the abdomen and pelvis was performed with the administration of intravenous contrast. Multiplanar reformatted images are provided for review. Automated exposure control, iterative reconstruction, and/or weight based adjustment of the mA/kV was utilized to reduce the radiation dose to as low as reasonably achievable. COMPARISON: None. HISTORY: ORDERING SYSTEM PROVIDED HISTORY: [facility] abd pain TECHNOLOGIST PROVIDED HISTORY: RLQ abd pain Decision Support Exception - unselect if not a suspected or confirmed emergency medical condition->Emergenc y Medical Condition (MA) FINDINGS: Lower Chest: The lung bases are clear. Organs: The liver is enlarged. There is diffuse low-attenuation of the liver. The gallbladder has been surgically removed. The spleen, pancreas and adrenal glands appear unremarkable. There is symmetric enhancement of the kidneys. No hydronephrosis is seen. No ureteral or bladder calculi are seen. GI/Bowel: Evaluation of the bowel is limited as no enteric contrast was given. No dilated loops of bowel are seen. The appendix is not dilated. There are few nondilated fluid-filled loops of small and large bowel. Pelvis: No pelvic masses or fluid collections are seen. Peritoneum/Retroper itoneum: The abdominal aorta is not aneurysmal. No retroperitoneal or mesenteric lymphadenopathy is seen. Bones/Soft Tissues: No acute bony abnormalities are noted. IMPRESSION: 1. Few nondilated fluid-filled loops of small and large bowel this likely represents an enteritis. 2. No CT evidence for appendicitis. [email or web address] Work Phone: Radiology Study observation (narrative) RADHA REINOSO [employer] Work Phone: CT ABDOMEN PELVIS W IV CONTR AST Additional Contrast? NoneOrdered By: Patrick Ceja on 02-18-2023 [email or web address] Work Phone: Comprehensive Metabolic Pane mando 02-18-2023 Albumin [Mass/Vol] 4.2 g/dL 3.5 - 5.2 g/dL [email or web address] Albumin/Globulin [Mass ratio] 1.4 {ratio} 1.0 - 2.5 [email or web address] ALP [Catalytic activity/Vol] 90 U/L 35 - 104 U/L [facility] ALT [Catalytic activity/Vol] 35 U/L High 5 - 33 U/L [email or web address] Anion gap [Moles/Vol] 10 mmol/L 9 - 17 mmol/L [email or web address] AST [Catalytic activity/Vol] 25 U/L NINF - 32 U/L [email or web address] Bilirubin [Mass/Vol] 0.2 mg/dL Low 0.3 - 1 .2 mg/dL [facility] Calcium [Mass/Vol] 9.5 mg/dL 8.6 - 10. 4 mg/dL [facility] Chloride [Moles/Vol] 104 mmol/L 98 - 10 7 mmol/L [facility] CO2 [Moles/Vol] 25 mmol/L 20 - 31 mmol/L [facility] Creatinine [Mass/Vol] 0.76 mg/dL 0.50 - 0.90 mg/dL [facility] GFR/1.73 sq M.predicted MDRD (S/P/Bld) [Vol rate/Area] - PINF [facility] Comment on above: These results are not intended for use in patients <18 years of age. eGFR results are calculated without a race factor using the 2020 CKD-EPI equation. Careful clinical correlation is recommended, particularly when comparing to results calculated using previous equations. The CKD-EPI equation is less accurate in patients with extremes of muscle mass, extra-renal metabolism of creatine, excessive creatine ingestion, or following therapy that affects renal tubular secretion. Glucose [Mass/Vol] 256 mg/dL High 70 - 99 mg/dL [facility] Interpretation and review of laboratory results Abnormal [facility] Potassium [Moles/Vol] 4.4 mmol/L 3.7 - 5.3 mmol/L [facility] Protein [Mass/Vol] 7.2 g/dL 6.4 - 8.3 g/dL [facility] Sodium [Moles/Vol] 139 mmol/L 135 - 144 mmol/L [facility] Urea nitrogen [Mass/Vol] 14 mg/dL 6 - 20 mg/dL [facility] Urea nitrogen/Creatinine [Mass ratio] 18 mg/mg 9 - 20 [facility] Glucose, Whole Bloodon 02-18 Glucose [Mass/Vol] 203 mg/dL High 74 - 100 mg/dL [facility] Interpretation and review of laboratory results Abnormal [facility] Glucose [Mass/Vol] 335 mg/dL High 74 - 100 mg/dL [facility] Interpretation and review of laboratory results Abnormal [facility] No Panel Informationon 02-18 [facility] POCT glucoseon 02-18-2023 Glucose [Mass/Vol] 203 mg/dL [facility] Work Phone: Interpretation and review of laboratory results Normal [facility] Work Phone: QC OK? y [facility] [employer] Work Phone: [facility] Work Phone: SPECIMEN REJECTIONon 023 Ordered Test BH,CP [facility] Reason for Rejection Unable to perform testing: Specimen hemolyzed. [facility] Specimen source Nom (Unsp spec) .BLOOD [facility] Urinalysis with Microscopico n 02-18-2023 Bacteria LM Ql (Urine sed) 1+ Abnormal None [facility] Bilirubin Ql (U) Negative NEGATIVE [facility] Clarity (U) Clear Clear [facility] Color (U) Yellow Yellow [facility] Epithelial cells LM.HPF (Urine sed) [#/Area] 0 TO 2 [facility] Glucose Test strip (U) [Mass/Vol] Negative NEGATIVE [facility] Hemoglobin Auto test strip Ql (U) Negative NEGATIVE [facility] Interpretation and review of laboratory results Abnormal [facility] Ketones (U) [Mass/Vol] Negative NEGATIVE [facility] Leukocyte esterase Test strip Ql (U) Negative NEGATIVE [facility] Nitrite Ql (U) Negative NEGATIVE [facility] pH (U) 6.0 [pH] 5.0 - 9.0 [facility] Protein (U) [Mass/Vol] Negative NEGATIVE [facility] RBC LM.HPF (Urine sed) [#/Area] 0 TO 2 [facility] Specific gravity (U) [Rel density] 1.010 1.010 - 1.020 [facility] Urobilinogen Qn (U) Normal Normal [facility] S [facility] WBC LM.HPF (Urine sed) [#/Area] 2 TO 5 [facility] XR CHEST PORTABLEon 02-19-20 23 No acute abnormality. PN RIS CONSOLIDATED EXAMINATION: ONE XRAY VIEW OF THE CHEST 02/18/2023 8:01 pm COMPARISON: 12/24/2022 HISTORY: ORDERING SYSTEM PROVIDED HISTORY: Cough TECHNOLOGIST PROVIDED HISTORY: Cough FINDINGS: No lung infiltrate or consolidation. No pneumothorax or pleural effusion. Heart size is normal. PN RIS CONSOLIDATED Je Ascencio MD - 02/18/2023 EXAMINATION: ONE XRAY VIEW OF THE CHEST 02/18/2023 8:01 pm COMPARISON: 12/24/2022 HISTORY: ORDERING SYSTEM PROVIDED HISTORY: Cough TECHNOLOGIST PROVIDED HISTORY: Cough FINDINGS: No lung infiltrate or consolidation. No pneumothorax or pleural effusion. Heart size is normal. IMPRESSION: No acute abnormality. RADHA [employer] Work Phone: Radiology Study observation (narrative) RADHA OLIVIER [employer] Work Phone: XR CHEST PORTABLEOrdered By: Je Ascencio on 02-18-2023 RADHA [employer] Work Phone: Outside Colonoscopyon 2022 Outside Colonoscopy [id number]#[id number]:127 Normal [facility] POINT OF CARE GLUCOSEon Glucose [Mass/Vol] 142 mg/dL Critically high 74-106 T [facility] Comment on above: Performed By: #### P REG #### [facility] [address] [address] [address] Jameel Odell Basic Metabolic Panelon Anion gap [Moles/Vol] 14 mmol/L 9 - 17 mmol/L [email or web address] Calcium [Mass/Vol] 10.2 mg/dL 8.6 - 10. 4 mg/dL [email or web address] Chloride [Moles/Vol] 104 mmol/L 98 - 10 7 mmol/L [email or web address] CO2 [Moles/Vol] 22 mmol/L 20 - 31 mmol/L [email or web address] Creatinine [Mass/Vol] 0.65 mg/dL 0.50 - 0.90 mg/dL [email or web address] GFR/1.73 sq M.predicted MDRD (S/P/Bld) [Vol rate/Area] - PINF [email or web address] Comment on above: These results are not intended for use in patients <18 years of age. eGFR results are calculated without a race factor using the 2020 CKD-EPI equation. Careful clinical correlation is recommended, particularly when comparing to results calculated using previous equations. The CKD-EPI equation is less accurate in patients with extremes of muscle mass, extra-renal metabolism of creatine, excessive creatine ingestion, or following therapy that affects renal tubular secretion. Glucose [Mass/Vol] 118 mg/dL High 70 - 99 mg/dL [email or web address] Interpretation and review of laboratory results Abnormal [facility] Potassium [Moles/Vol] 4.1 mmol/L 3.7 - 5.3 mmol/L [facility] Sodium [Moles/Vol] 140 mmol/L 135 - 144 mmol/L [facility] Urea nitrogen [Mass/Vol] 10 mg/dL 6 - 20 mg/dL [facility] Urea nitrogen/Creatinine (Bld) [Mass ratio] 15 9 - 20 [facility] CBC with Auto Differentialon 12-24-2022 Absolute Eos # 0.20 [facility] Absolute Immature Granulocyte 0.06 [facility] Absolute Lymph # 3.82 [facility] Absolute Tillman # 0.46 [facility] Basophils (Bld) [#/Vol] 0.04 10*3/uL [facility] Basophils/100 WBC (Bld) 0 % 0 - 2 % B ON [facility] Eosinophils/100 WBC (Bld) 2 % 1 - 4 % [facility] Hematocrit (Bld) [Volume fraction] 42.8 % 36.3 - 47.1 % [facility] Hemoglobin (Bld) [Mass/Vol] 14.4 g/dL 11.9 - 15.1 g/dL [facility] Immature granulocytes/100 WBC (Bld) 1 % High 0 [facility] Interpretation and review of laboratory results Abnormal [facility] Lymphocytes/100 WBC (Bld) 37 % 24 - 43 % [facility] MCH (RBC) [Entitic mass] 30.2 pg 25.2 - 33.5 pg [facility] MCHC (RBC) [Mass/Vol] 33.6 g/dL 28.4 - 34.8 g/dL [facility] MCV (RBC) [Entitic vol] 89.7 fL 82.6 - 102.9 fL [facility] Monocytes/100 WBC (Bld) 5 % 3 - 12 % B ON [facility] NRBC Automated 0.0 0.0 per 100 WBC [facility] Platelet distribution width (Bld) [Ratio] 12.3 % 11.8 - 14.4 % [facility] Platelet mean volume (Bld) [Entitic vol] 10.5 fL 8.1 - 13.5 fL [facility] Platelets (Bld) [#/Vol] 326 10*3/uL [facility] RBC (Bld) [#/Vol] 4.77 10*6/uL 3.95 - 5.1 1 m/uL [facility] Segmented neutrophils/100 WBC (Bld) 55 % 36 - 65 % [facility] Segs Absolute 5.75 [facility] WBC (Bld) [#/Vol] 10.3 10*3/uL [facility] D-Dimer, Quantitativeon Fibrin D-dimer FEU IA (Bld) [Mass/Vol] 0.44 ug/mL [facility] Comment on above: When combined with a low clinical probability, a D dimer value of <0.50 mg/L FEU is considered negative for DVT and PE (negative predictive value of 98%, sensitivity of 97%). If this test is not being used to help rule out DVT and PE, then the following reference range should be utilized: 0.00 - 0.59 mg/L FEU. The D-Dimer assay is intended for use as an aid in the diagnosis of venous thromboembolism (DVT and PE) and the results should be interpreted in conjunction with the patient's medical history, clinical presentation, and other findings. Elevated levels of D-dimer activity can be seen in any state of coagulation activation and is not recommended in patients with therapeutic dose anticoagulant therapy for >24 hours, fibrinolytic therapy within the previous 7 days, trauma or surgery within the previous 4 weeks, disseminated malignancies, aortic aneurysm, sepsis, severe infections, pneumonia, severe skin infections, liver cirrhosis, advanced age, coronary disease, diabetes, and . A very low percentage of patients with DVT may yield D-dimer results below the cutoff of 0.5 mg/L FEU. This is known to be more prevalent in patients with distal DVT. [facility] Microscopic Urinalysison Bacteria, UA TRACE Abnormal None [facility] Epithelial Cells UA 0 TO 2 [facility] Interpretation and review of laboratory results Abnormal [facility] Mucus, UA TRACE Abnormal None [facility] RBC clumps Auto (Urine sed) [#/Area] 0 TO 2 [facility] WBC, UA 0 TO 2 [facility] Troponinon 12-24-2022 Troponin I.cardiac DL <= 0.01 ng/mL [Mass/Vol] 6 ng/L 0 - 14 ng/L [facility] Comment on above: High Sensitivity Tro ponin values cannot be compared with other Troponin methodologies. [facility] Urinalysis with Reflex to Cu ltureon 12-24-2022 Bilirubin Urine Negative NEGATIVE [facility] Color, UA Yellow Yellow [facility] Glucose Auto test strip (U) [Mass/Vol] Negative NEGATIVE [facility] Ketones (U) [Mass/Vol] Negative NEGATIVE [facility] Leukocyte esterase Auto test strip Ql (U) Negative NEGATIVE [facility] Nitrite Auto test strip Ql (U) Negative NEGATIVE [facility] Protein (U) [Mass/Vol] 6.0 mg/dL 5.0 - 9.0 [facility] Protein (U) [Mass/Vol] Negative NEGATIVE [facility] Specific [place], UA 1.015 1.010 - 1.020 [facility] Turbidity UA Clear Clear [facility] Urine Hgb Negative NEGATIVE [facility] Urobilinogen, Urine Normal Normal [facility] S [facility] XR CHEST PORTABLEon 12-25-19 No acute cardiopulmonary findings. [facility] EXAMINATION: ONE XRAY VIEW OF THE CHEST 12/24/2022 3:17 pm COMPARISON: In 1621 HISTORY: ORDERING SYSTEM PROVIDED HISTORY: chest pain, shortness of breath TECHNOLOGIST PROVIDED HISTORY: chest pain, shortness of breath Initial encounter FINDINGS: No focal consolidation, pleural effusion or pneumothorax. The cardiomediastinal silhouette is stable. No overt pulmonary edema. The osseous structures are stable. [facility] Rina Herrera MD - 12/24/2022 EXAMINATION: ONE XRAY VIEW OF THE CHEST 12/24/2022 3:17 pm COMPARISON: In 1621 HISTORY: ORDERING SYSTEM PROVIDED HISTORY: chest pain, shortness of breath TECHNOLOGIST PROVIDED HISTORY: chest pain, shortness of breath Initial encounter FINDINGS: No focal consolidation, pleural effusion or pneumothorax. The cardiomediastinal silhouette is stable. No overt pulmonary edema. The osseous structures are stable. IMPRESSION: No acute cardiopulmonary findings. RADHA [employer] Phone: Radiology Study observation (narrative) RADHA OLIVIER [employer] Phone: XR CHEST PORTABLEOrdered By: Rina Herrera on 12-24-2022 RADHA [employer] Phone: Consent for Procedure/Surger yon 12-06-2022 Consent for Procedure/Surgery [id number] 43#[id number]:127 Normal [facility] Facesheeton 12-06-2022 Facesheet [id number] B#[id number]:127 Normal [facility] Ambulatory Visit Summaryon 0 12-04-2022 Ambulatory Visit Summary DOROTA SWANSON :1995 Visit Date:12/04/2022 Ambulatory Visit Instructions Your Care Team Attending Physician - KENDRA GREWAL, Ortiz Al Primary Care Physician - RUSSELL GREWAL, YOSSI This Is Your Medications List dulaglutide (Trulicity Pen 1.5 mg/0.5 mL subcutaneous solution) glipiZIDE (glipiZIDE 10 mg Tab) hydrOXYzine (hydrOXYzine hydrochloride 25 mg Tab) omeprazole (omeprazole 40 mg Cap-DR) ondansetron (ondansetron 4 mg Dis Tab) sertraline (sertraline 25 mg Tab) tizanidine (tiZANidine 4 mg Tab) Procedures Performed section (2018), section (2016), Bilateral oophorectomy, section, Cholecystectomy, Extraction of wisdom tooth, Laparoscopic hysterectomy, Laparoscopy, Tear duct, Tonsillectomy. Discharge Vitals Heart Rate (Peripheral) 80 Respiratory Rate 16 Blood Pressure 126/82 Height 172.72 cm Height 68 in Weight 111 kg Weight 244.2 lb BMI 37.21 Medications What How Much When Instructions Unchanged dulaglutide (Trulicity Pen 1.5 mg/ 0.5 mL subcutaneous solution) 1.5 Milligram Subcutaneous Every week Unchanged glipiZIDE (glipiZIDE 10 mg Tab) 1 Tablets By Mouth 2 times a day Unchanged hydrOXYzine (hydrOXYzine hydrochloride 25 mg Tab) 1 Tablets By Mouth Every 6 hours as needed for as needed for anxiety Unchanged omeprazole (omeprazole 40 mg Cap-DR) 1 Capsules By Mouth 2 times a day Unchanged ondansetron (ondansetron 4 mg Dis Tab) 1 Tablets By Mouth Every 6 hours as needed for Nausea Unchanged sertraline (sertraline 25 mg Tab) 1 Tablets By Mouth Every day Unchanged tizanidine (tiZANidine 4 mg Tab) 1 Tablets By Mouth 3 times a day Medications and Immunizations Administered Not Given influenza virus vaccine, inactivated, Allergy to Eggs (disorder) Allergies Eggs (Abdominal pain) Latex (Itching) amoxicillin (Rash, Nausea and vomiting) ketorolac (Itching, Dyspnea) meperidine (Itching, Dyspnea) traMADol (Unknown) Problems Ongoing - Any problem that you are currently receiving treatment for. Acute pancreatitis Bilateral lower extremity edema BMI 37.0-37.9, adult Cholangiectasis Cyst of right ovary Depression Diabetes Diarrhea Dysphagia Endometriosis (clinical) Essential hypertension Factor V Leiden LINA (generalized anxiety disorder) GERD (gastroesophageal reflux disease) Hiatal hernia History of pulmonary embolism Insomnia Left ventricular hypertrophy Morbid obesity Prolapsed lumbar intervertebral disc Smoker Historical - Any problem that you are no longer receiving treatment for. Acute pulmonary embolism Dyspnea Smoker Normal [facility] Hemoglobin A1Con 11-21-2022 Average glucose Estimated from glycated hemoglobin (Bld) [Mass/Vol] 163 mg/dL [facility] Comment on above: The ADA and AACC rec ommend providing the estimated average glucose result to permit better patient understanding of their HBA1c result. HbA1c (Bld) [Mass fraction] 7.3 % High 4.0 - 6.0 % [facility] Interpretation and review of laboratory results Abnormal [facility] Physician Referralon 023 Physician Referral [id number]#[id number]:127 Normal [facility] CBC with Auto Differentialon 11-01-2022 Absolute Eos # 0.13 [facility] Absolute Immature Granulocyte 0.04 [facility] Absolute Lymph # 4.23 [facility] Absolute Tillman # 0.66 [facility] RS [facility] Basophils (Bld) [#/Vol] 0.08 10*3/uL [facility] Basophils/100 WBC (Bld) 1 % 0 - 2 % B ON [facility] Eosinophils/100 WBC (Bld) 1 % 1 - 4 % [facility] Hematocrit (Bld) [Volume fraction] 44.7 % 36.3 - 47.1 % [facility] Hemoglobin (Bld) [Mass/Vol] 15.7 g/dL High 11.9 - 15.1 g/dL [facility] Immature granulocytes/100 WBC (Bld) 0 % 0 [facility] Interpretation and review of laboratory results Abnormal [facility] Lymphocytes/100 WBC (Bld) 34 % 24 - 43 % [facility] MCH (RBC) [Entitic mass] 32.0 pg 25.2 - 33.5 pg [facility] MCHC (RBC) [Mass/Vol] 35.1 g/dL High 28.4 - 34.8 g/dL [facility] MCV (RBC) [Entitic vol] 91.0 fL 82.6 - 102.9 fL [facility] Monocytes/100 WBC (Bld) 5 % 3 - 12 % B ON [facility] NRBC Automated 0.0 0.0 per 100 WBC [facility] Platelet distribution width (Bld) [Ratio] 12.3 % 11.8 - 14.4 % [facility] Platelet mean volume (Bld) [Entitic vol] 10.0 fL 8.1 - 13.5 fL [facility] Platelets (Bld) [#/Vol] 367 10*3/uL [facility] RBC (Bld) [#/Vol] 4.91 10*6/uL 3.95 - 5.1 1 m/uL [facility] Segmented neutrophils/100 WBC (Bld) 59 % 36 - 65 % [facility] Segs Absolute 7.39 [facility] WBC (Bld) [#/Vol] 12.5 10*3/uL High [facility] CMPon 11-01-2022 Albumin [Mass/Vol] 4.4 g/dL 3.5 - 5.2 g/dL [facility] Albumin/Globulin [Mass ratio] 1.2 {ratio} 1.0 - 2.5 [facility] ALP [Catalytic activity/Vol] 94 U/L 35 - 104 U/L [facility] ALT [Catalytic activity/Vol] 33 U/L 5 - 33 U/L [facility] Anion gap [Moles/Vol] 13 mmol/L 9 - 17 mmol/L [facility] AST [Catalytic activity/Vol] 26 U/L NINF - 32 U/L [facility] Bilirubin [Mass/Vol] 0.4 mg/dL 0.3 - 1 .2 mg/dL [facility] Calcium [Mass/Vol] 10.1 mg/dL 8.6 - 10. 4 mg/dL [facility] Chloride [Moles/Vol] 102 mmol/L 98 - 10 7 mmol/L [facility] CO2 [Moles/Vol] 24 mmol/L 20 - 31 mmol/L [facility] Creatinine [Mass/Vol] 0.71 mg/dL 0.50 - 0.90 mg/dL [facility] GFR/1.73 sq M.predicted MDRD (S/P/Bld) [Vol rate/Area] - PINF [facility] Comment on above: These results are not intended for use in patients <18 years of age. eGFR results are calculated without a race factor using the 2020 CKD-EPI equation. Careful clinical correlation is recommended, particularly when comparing to results calculated using previous equations. The CKD-EPI equation is less accurate in patients with extremes of muscle mass, extra-renal metabolism of creatine, excessive creatine ingestion, or following therapy that affects renal tubular secretion. Glucose [Mass/Vol] 110 mg/dL High 70 - 99 mg/dL [facility] Interpretation and review of laboratory results Abnormal [facility] Potassium [Moles/Vol] 4.0 mmol/L 3.7 - 5.3 mmol/L [facility] Protein [Mass/Vol] 8.0 g/dL 6.4 - 8.3 g/dL [facility] Sodium [Moles/Vol] 139 mmol/L 135 - 144 mmol/L [facility] Urea nitrogen [Mass/Vol] 11 mg/dL 6 - 20 mg/dL [facility] Urea nitrogen/Creatinine (Bld) [Mass ratio] 15 9 - 20 [facility] , Urineon Beta HCG ( test) Ql (U) Negative NEGATIVE [facility] Comment on above: Specimens with hCG l evels near the threshold of the test (25 mIU/mL) may give a negative or indeterminate result. In such cases, another test should be performed with a new specimen in 48-72 hours. If early is suspected clinically in this setting, correlation with quantitative serum b-hCG level is suggested. [employer] has confirmed the use of plasma for this test. This has not been cleared or approved by the U.S. Food and Drug Administration. The FDA has determined that such clearance is not necessary. [facility] Urinalysis with Microscopico n 11-01-2022 Bilirubin Urine Negative NEGATIVE [facility] Color, UA Yellow Yellow [facility] Epithelial Cells UA 0 TO 2 [facility] Glucose Auto test strip (U) [Mass/Vol] Negative NEGATIVE [facility] Interpretation and review of laboratory results Abnormal [facility] Ketones (U) [Mass/Vol] Negative NEGATIVE [facility] Leukocyte esterase Auto test strip Ql (U) Negative NEGATIVE [facility] Nitrite Auto test strip Ql (U) Negative NEGATIVE [facility] Protein (U) [Mass/Vol] 6.0 mg/dL 5.0 - 9.0 [facility] Protein (U) [Mass/Vol] Negative NEGATIVE [facility] RBC clumps Auto (Urine sed) [#/Area] 0 TO 2 [facility] Specific [place], UA 1.020 1.010 - 1.020 [facility] Turbidity UA Clear Clear [facility] Urine Hgb 1+ Abnormal NEGATIVE [facility] Urobilinogen, Urine Normal Normal [facility] WBC, UA None [facility] CBC with Auto Differentialon 10-05-2022 Absolute [facility]os # 0.14 [facility] Absolute Immature Gran[facility]ocyte 0.05 [facility] Absolute Lymph # 3.00 [facility] Absolute Tillman # 0.48 [facility] Basophils (Bld) [#/Vol] 0.05 10*3/uL [facility] Basophils/100 WBC (Bld) 1 % 0 - 2 % B ON [facility] Eosinophils/100 WBC (Bld) 1 % 1 - 4 % [facility] Hematocrit (Bld) [Volume fraction] 45.2 % 36.3 - 47.1 % [facility] Hemoglobin (Bld) [Mass/Vol] 15.8 g/dL High 11.9 - 15.1 g/dL [facility] Immature granulocytes/100 WBC (Bld) 1 % High 0 [facility] Interpretation and review of laboratory results Abnormal [facility] Lymphocytes/100 WBC (Bld) 29 % 24 - 43 % [facility] MCH (RBC) [Entitic mass] 32.0 pg 25.2 - 33.5 pg [facility] MCHC (RBC) [Mass/Vol] 35.0 g/dL High 28.4 - 34.8 g/dL [facility] MCV (RBC) [Entitic vol] 91.7 fL 82.6 - 102.9 fL [facility] Monocytes/100 WBC (Bld) 5 % 3 - 12 % B ON [facility] NRBC Automated 0.0 0.0 per 100 WBC [facility] Platelet distribution width (Bld) [Ratio] 12.3 % 11.8 - 14.4 % [facility] Platelet mean volume (Bld) [Entitic vol] 9.9 fL 8.1 - 13.5 fL [facility] Platelets (Bld) [#/Vol] 337 10*3/uL [facility] RBC (Bld) [#/Vol] 4.93 10*6/uL 3.95 - 5.1 1 m/uL [facility] Segmented neutrophils/100 WBC (Bld) 63 % 36 - 65 % [facility] Segs Absolute 6.52 [facility] WBC (Bld) [#/Vol] 10.2 10*3/uL [facility] CMPon 10-05-2022 Albumin [Mass/Vol] 4.4 g/dL 3.5 - 5.2 g/dL [facility] Albumin/Globulin [Mass ratio] 1.4 {ratio} 1.0 - 2.5 [facility] ALP (Bld) [Catalytic activity/Vol] 97 U/L 35 - 104 U/L [facility] ALT [Catalytic activity/Vol] 46 U/L High 5 - 33 U/L [facility] Anion gap [Moles/Vol] 13 mmol/L 9 - 17 mmol/L [facility] AST [Catalytic activity/Vol] 50 U/L High NINF - 32 U/L [facility] Bilirubin [Mass/Vol] 0.6 mg/dL 0.3 - 1 .2 mg/dL [facility] Calcium [Mass/Vol] 9.8 mg/dL 8.6 - 10. 4 mg/dL [facility] Chloride [Moles/Vol] 101 mmol/L 98 - 10 7 mmol/L [facility] CO2 [Moles/Vol] 25 mmol/L 20 - 31 mmol/L [facility] Creatinine [Mass/Vol] 0.68 mg/dL 0.50 - 0.90 mg/dL [facility] GFR/1.73 sq M.predicted MDRD (S/P/Bld) [Vol rate/Area] - PINF [facility] Comment on above: Effective Jun 25, 2022 These results are not intended for use in patients <18 years of age. eGFR results are calculated without a race factor using the 2020 CKD-EPI equation. Careful clinical correlation is recommended, particularly when comparing to results calculated using previous equations. The CKD-EPI equation is less accurate in patients with extremes of muscle mass, extra-renal metabolism of creatine, excessive creatine ingestion, or following therapy that affects renal tubular secretion. Glucose [Mass/Vol] 174 mg/dL High 70 - 99 mg/dL [facility] Interpretation and review of laboratory results Abnormal [facility] Potassium [Moles/Vol] 4.0 mmol/L 3.7 - 5.3 mmol/L [facility] Protein [Mass/Vol] 7.6 g/dL 6.4 - 8.3 g/dL [facility] Sodium [Moles/Vol] 139 mmol/L 135 - 144 mmol/L [facility] Urea nitrogen (BldV) [Mass/Vol] 7 mg/dL 6 - 20 mg/dL [facility] Urea nitrogen/Creatinine (Bld) [Mass ratio] 10 9 - 20 [facility] Urinalysison 10-05-2022 Bilirubin Urine Negative NEGATIVE [facility] Color, UA Yellow Yellow [facility] Glucose, Ur Negative NEGATIVE [facility] Interpretation and review of laboratory results Abnormal [facility] Ketones Ql (U) Negative NEGATIVE [facility] Leukocyte esterase Test strip Ql (U) Negative NEGATIVE [facility] Nitrite, Urine Negative NEGATIVE [facility] pH, UA 6.0 5.0 - 9.0 [facility] Protein, UA Negative NEGATIVE [facility] Specific [place], UA 1.025 High 1.010 - 1.020 [facility] Turbidity UA Clear Clear [facility] Urine Hgb Negative NEGATIVE [facility] Urobilinogen, Urine Normal Normal [facility] Urine Preg (Lab)on 3 Beta HCG ( test) Ql (U) Negative NEGATIVE [facility] Comment on above: Specimens with hCG l evels near the threshold of the test (25 mIU/mL) may give a negative or indeterminate result. In such cases, another test should be performed with a new specimen in 48-72 hours. If early is suspected clinically in this setting, correlation with quantitative serum b-hCG level is suggested. [employer] has confirmed the use of plasma for this test. This has not been cleared or approved by the U.S. Food and Drug Administration. The FDA has determined that such clearance is not necessary. [facility] CBC with Auto Differentialon 09-27-2022 Absolute Eos # 0.18 [facility] Absolute Immature Granulocyte 0.04 [facility] Absolute Lymph # 4.02 High [facility] Absolute Tillman # 0.58 [facility] Basophils (Bld) [#/Vol] 0.05 10*3/uL [facility] Basophils/100 WBC (Bld) 0 % 0 - 2 % B ON [facility] Eosinophils/100 WBC (Bld) 2 % 1 - 4 % [facility] Hematocrit (Bld) [Volume fraction] 41.9 % 36.3 - 47.1 % [facility] Hemoglobin (Bld) [Mass/Vol] 14.7 g/dL 11.9 - 15.1 g/dL [facility] Immature granulocytes/100 WBC (Bld) 0 % 0 [facility] Interpretation and review of laboratory results Abnormal [facility] Lymphocytes/100 WBC (Bld) 33 % 24 - 43 % [facility] MCH (RBC) [Entitic mass] 31.7 pg 25.2 - 33.5 pg [facility] MCHC (RBC) [Mass/Vol] 35.1 g/dL High 28.4 - 34.8 g/dL [facility] MCV (RBC) [Entitic vol] 90.3 fL 82.6 - 102.9 fL [facility] Monocytes/100 WBC (Bld) 5 % 3 - 12 % B ON [facility] NRBC Automated 0.0 0.0 per 100 WBC [facility] Platelet distribution width (Bld) [Ratio] 12.5 % 11.8 - 14.4 % [facility] Platelet mean volume (Bld) [Entitic vol] 10.2 fL 8.1 - 13.5 fL [facility] Platelets (Bld) [#/Vol] 294 10*3/uL [facility] RBC (Bld) [#/Vol] 4.64 10*6/uL 3.95 - 5.1 1 m/uL [facility] Segmented neutrophils/100 WBC (Bld) 60 % 36 - 65 % [facility] Segs Absolute 7.35 [facility] WBC (Bld) [#/Vol] 12.2 10*3/uL High [facility] Comprehensive Metabolic Pane mando 09-27-2022 Albumin [Mass/Vol] 4.3 g/dL 3.5 - 5.2 g/dL [facility] Albumin/Globulin [Mass ratio] 1.5 {ratio} 1.0 - 2.5 [facility] ALP (Bld) [Catalytic activity/Vol] 89 U/L 35 - 104 U/L [facility] ALT [Catalytic activity/Vol] 29 U/L 5 - 33 U/L [facility] Anion gap [Moles/Vol] 11 mmol/L 9 - 17 mmol/L [facility] AST [Catalytic activity/Vol] 28 U/L NINF - 32 U/L [facility] Bilirubin [Mass/Vol] 0.7 mg/dL 0.3 - 1 .2 mg/dL [facility] Calcium [Mass/Vol] 10.2 mg/dL 8.6 - 10. 4 mg/dL [facility] Chloride [Moles/Vol] 103 mmol/L 98 - 10 7 mmol/L [facility] CO2 [Moles/Vol] 23 mmol/L 20 - 31 mmol/L [facility] Creatinine [Mass/Vol] 0.57 mg/dL 0.50 - 0.90 mg/dL [facility] GFR/1.73 sq M.predicted MDRD (S/P/Bld) [Vol rate/Area] - PINF [facility] Comment on above: Effective Jun 25, 2022 These results are not intended for use in patients <18 years of age. eGFR results are calculated without a race factor using the 2020 CKD-EPI equation. Careful clinical correlation is recommended, particularly when comparing to results calculated using previous equations. The CKD-EPI equation is less accurate in patients with extremes of muscle mass, extra-renal metabolism of creatine, excessive creatine ingestion, or following therapy that affects renal tubular secretion. Glucose [Mass/Vol] 151 mg/dL High 70 - 99 mg/dL [facility] Interpretation and review of laboratory results Abnormal [facility] Potassium [Moles/Vol] 3.9 mmol/L 3.7 - 5.3 mmol/L [facility] Protein [Mass/Vol] 7.2 g/dL 6.4 - 8.3 g/dL [facility] Sodium [Moles/Vol] 137 mmol/L 135 - 144 mmol/L [facility] Urea nitrogen (BldV) [Mass/Vol] 9 mg/dL 6 - 20 mg/dL [facility] Urea nitrogen/Creatinine (Bld) [Mass ratio] 16 9 - 20 [facility] Lactic Acidon 09-27-2022 Lactate [Moles/Vol] 1.2 mmol/L 0.5 - 2. 2 mmol/L [facility] Lipaseon 09-27-2022 Lipase [Catalytic activity/Vol] 44 U/L 13 - 60 U/L [facility] No Panel Informationon 09-27 [facility] , Urineon Beta HCG ( test) Ql (U) Negative NEGATIVE [facility] Comment on above: Specimens with hCG l evels near the threshold of the test (25 mIU/mL) may give a negative or indeterminate result. In such cases, another test should be performed with a new specimen in 48-72 hours. If early is suspected clinically in this setting, correlation with quantitative serum b-hCG level is suggested. [employer] has confirmed the use of plasma for this test. This has not been cleared or approved by the U.S. Food and Drug Administration. The FDA has determined that such clearance is not necessary. [facility] Urinalysis with Microscopico n 09-27-2022 Bacteria, UA 1+ Abnormal None [facility] Bilirubin Urine Negative NEGATIVE [facility] Color, UA Yellow Yellow [facility] Epithelial Cells UA 0 TO 2 [facility] Glucose, Ur Negative NEGATIVE [facility] Interpretation and review of laboratory results Abnormal [facility] Ketones Ql (U) Negative NEGATIVE [facility] Leukocyte esterase Test strip Ql (U) Negative NEGATIVE [facility] Mucus, UA 3+ Abnormal None [facility] Nitrite, Urine Negative NEGATIVE [facility] pH, UA 6.0 5.0 - 9.0 [facility] Protein, UA Negative NEGATIVE [facility] RBC, UA 0 TO 2 [facility] Specific [place], UA High 1.010 - 1.020 [facility] Turbidity UA Clear Clear [facility] Urine Hgb Negative NEGATIVE [facility] Urobilinogen, Urine Normal Normal [facility] WBC, UA 0 TO 2 [facility] CBC with Auto Differentialon 07-08-2022 Absolute Eos # 0.12 [facility] Absolute Immature Granulocyte [facility] Absolute Lymph # 3.54 [facility] Absolute Tillman # 0.64 [facility] Basophils (Bld) [#/Vol] 0.04 10*3/uL [facility] Basophils/100 WBC (Bld) 0 % 0 - 2 % B ON [facility] Eosinophils/100 WBC (Bld) 1 % 1 - 4 % [facility] Hematocrit (Bld) [Volume fraction] 42.9 % 36.3 - 47.1 % [facility] Hemoglobin (Bld) [Mass/Vol] 15.1 g/dL 11.9 - 15.1 g/dL [facility] Immature granulocytes/100 WBC (Bld) 0 % 0 [facility] Interpretation and review of laboratory results Abnormal [facility] Lymphocytes/100 WBC (Bld) 38 % 24 - 43 % [facility] MCH (RBC) [Entitic mass] 31.4 pg 25.2 - 33.5 pg [facility] MCHC (RBC) [Mass/Vol] 35.2 g/dL High 28.4 - 34.8 g/dL [facility] MCV (RBC) [Entitic vol] 89.2 fL 82.6 - 102.9 fL [facility] Monocytes/100 WBC (Bld) 7 % 3 - 12 % B ON [facility] NRBC Automated 0.0 0.0 per 100 WBC [facility] Platelet distribution width (Bld) [Ratio] 12.6 % 11.8 - 14.4 % [facility] Platelet mean volume (Bld) [Entitic vol] 10.4 fL 8.1 - 13.5 fL [facility] Platelets (Bld) [#/Vol] 309 10*3/uL [facility] RBC (Bld) [#/Vol] 4.81 10*6/uL 3.95 - 5.1 1 m/uL [facility] Segmented neutrophils/100 WBC (Bld) 54 % 36 - 65 % [facility] Segs Absolute 4.86 [facility] WBC (Bld) [#/Vol] 9.2 10*3/uL [facility] CMPon 07-08-2022 Albumin [Mass/Vol] 4.3 g/dL 3.5 - 5.2 g/dL [facility] Albumin/Globulin [Mass ratio] 1.5 {ratio} 1 - 2.5 [facility] ALP (Bld) [Catalytic activity/Vol] 93 U/L 35 - 104 U/L [facility] ALT [Catalytic activity/Vol] 55 U/L High 5 - 33 U/L [facility] Anion gap [Moles/Vol] 10 mmol/L 9 - 17 mmol/L [facility] AST [Catalytic activity/Vol] 53 U/L High NINF - 32 U/L [facility] Bilirubin [Mass/Vol] 0.8 mg/dL 0.3 - 1 .2 mg/dL [facility] Calcium [Mass/Vol] 9.5 mg/dL 8.6 - 10. 4 mg/dL [facility] Chloride [Moles/Vol] 103 mmol/L 98 - 10 7 mmol/L [facility] CO2 [Moles/Vol] 26 mmol/L 20 - 31 mmol/L [facility] Creatinine [Mass/Vol] 0.67 mg/dL 0.5 - 0.9 mg/dL [facility] GFR/1.73 sq M.predicted MDRD (S/P/Bld) [Vol rate/Area] - PINF [facility] Comment on above: Effective Jun 25, 2022 These results are not intended for use in patients <18 years of age. eGFR results are calculated without a race factor using the 2020 CKD-EPI equation. Careful clinical correlation is recommended, particularly when comparing to results calculated using previous equations. The CKD-EPI equation is less accurate in patients with extremes of muscle mass, extra-renal metabolism of creatine, excessive creatine ingestion, or following therapy that affects renal tubular secretion. Glucose [Mass/Vol] 132 mg/dL High 70 - 99 mg/dL [facility] [employer] Interpretation and review of laboratory results Abnormal [facility] [employer] Potassium [Moles/Vol] 4.0 mmol/L 3.7 - 5.3 mmol/L [facility] [employer] Protein [Mass/Vol] 7.2 g/dL 6.4 - 8.3 g/dL [facility] [employer] Sodium [Moles/Vol] 139 mmol/L 135 - 144 mmol/L [facility] Urea nitrogen (BldV) [Mass/Vol] 11 mg/dL 6 - 20 mg/dL [facility] Urea nitrogen/Creatinine (Bld) [Mass ratio] 16 9 - 20 [facility] CHEST PULMONARY EMBOLISM W CONTRASTon 07-08-[address] pulmonary angiogram study. No evidence of pulmonary embolism or acute thoracic aortic abnormality. Clear lungs. [facility] CONSOLIDATED EXAMINATION: CTA OF THE CHEST 07/08/2022 5:52 pm TECHNIQUE: CTA of the chest was performed after the administration of intravenous contrast. Multiplanar reformatted images are provided for review. MIP images are provided for review. Automated exposure control, iterative reconstruction, and/or weight based adjustment of the mA/kV was utilized to reduce the radiation dose to as low as reasonably achievable. COMPARISON: None. HISTORY: ORDERING SYSTEM PROVIDED HISTORY: cough/sob TECHNOLOGIST PROVIDED HISTORY: cough/sob Decision Support Exception - unselect if not a suspected or confirmed emergency medical condition->Emergenc y Medical Condition (MA) FINDINGS: Pulmonary Arteries: Pulmonary arteries are adequately opacified for evaluation. No evidence of intraluminal filling defect to suggest pulmonary embolism. Main pulmonary artery is normal in caliber. Mediastinum: Heart size is normal. The thoracic aorta and proximal great vessels are patent and of normal caliber. No pericardial effusion. No enlarged or suspicious axillary, hilar, or mediastinal lymphadenopathy. Lungs/pleura: The trachea and mainstem bronchi are widely patent. The lungs are grossly clear. No discrete pulmonary nodule or mass. No pleural effusion or pneumothorax. Soft Tissues/Bones: No significant osseous abnormality. Upper Abdomen: The visualized upper abdomen is unremarkable. [facility] Chinyere Mendoza MD - 07/08/2022 EXAMINATION: CTA OF THE CHEST 07/08/2022 5:52 pm TECHNIQUE: CTA of the chest was performed after the administration of intravenous contrast. Multiplanar reformatted images are provided for review. MIP images are provided for review. Automated exposure control, iterative reconstruction, and/or weight based adjustment of the mA/kV was utilized to reduce the radiation dose to as low as reasonably achievable. COMPARISON: None. HISTORY: ORDERING SYSTEM PROVIDED HISTORY: cough/sob TECHNOLOGIST PROVIDED HISTORY: cough/sob Decision Support Exception - unselect if not a suspected or confirmed emergency medical condition->Emergenc y Medical Condition (MA) FINDINGS: Pulmonary Arteries: Pulmonary arteries are adequately opacified for evaluation. No evidence of intraluminal filling defect to suggest pulmonary embolism. Main pulmonary artery is normal in caliber. Mediastinum: Heart size is normal. The thoracic aorta and proximal great vessels are patent and of normal caliber. No pericardial effusion. No enlarged or suspicious axillary, hilar, or mediastinal lymphadenopathy. Lungs/pleura: The trachea and mainstem bronchi are widely patent. The lungs are grossly clear. No discrete pulmonary nodule or mass. No pleural effusion or pneumothorax. Soft Tissues/Bones: No significant osseous abnormality. Upper Abdomen: The visualized upper abdomen is unremarkable. IMPRESSION: Normal chest CT pulmonary angiogram study. No evidence of pulmonary embolism or acute thoracic aortic abnormality. Clear lungs. [facility] Phone: Radiology Study observation (narrative) [facility] Phone: CT CHEST PULMONARY EMBOLISM W CONTRASTOrdered By: Chinyere Penn on 07-08-2022 [employer] [facility] Phone: D-Dimer, Quantitativeon 06-23 D-Dimer, Quant 0.27 [employer] Comment on above: When combined with a low clinical probability, a D dimer value of <0.50 mg/L FEU is considered negative for DVT and PE (negative predictive value of 98%, sensitivity of 97%). If this test is not being used to help rule out DVT and PE, then the following reference range should be utilized: 0.00 - 0.59 mg/L FEU. The D-Dimer assay is intended for use as an aid in the diagnosis of venous thromboembolism (DVT and PE) and the results should be interpreted in conjunction with the patient's medical history, clinical presentation, and other findings. Elevated levels of D-dimer activity can be seen in any state of coagulation activation and is not recommended in patients with therapeutic dose anticoagulant therapy for >24 hours, fibrinolytic therapy within the previous 7 days, trauma or surgery within the previous 4 weeks, disseminated malignancies, aortic aneurysm, sepsis, severe infections, pneumonia, severe skin infections, liver cirrhosis, advanced age, coronary disease, diabetes, and . A very low percentage of patients with DVT may yield D-dimer results below the cutoff of 0.5 mg/L FEU. This is known to be more prevalent in patients with distal DVT. [email or web address] XR CHEST (2 VW)on 07-08-2022 No acute abnormality visualized. [facility] CONSOLIDATED EXAMINATION: TWO XRAY VIEWS OF THE CHEST 07/08/2022 5:27 pm COMPARISON: None. HISTORY: ORDERING SYSTEM PROVIDED HISTORY: cough, SOB TECHNOLOGIST PROVIDED HISTORY: cough, SOB FINDINGS: There is bandlike atelectasis versus scar in the right mid lung. No consolidation or effusion is identified. The heart size is normal. [facility] CONSOLID[facility] Onel Roberts MD - 07/08/2022 EXAMINATION: TWO XRAY VIEWS OF THE CHEST 07/08/2022 5:27 pm COMPARISON: None. HISTORY: ORDERING SYSTEM PROVIDED HISTORY: cough, SOB TECHNOLOGIST PROVIDED HISTORY: cough, SOB FINDINGS: There is bandlike atelectasis versus scar in the right mid lung. No consolidation or effusion is identified. The heart size is normal. IMPRESSION: No acute abnormality visualized. [facility] Phone: Radiology Study observation (narrative) [facility] Phone: XR CHEST (2 VW)Ordered By: Aniya Roberts on 07-08-2022 [facility] Phone: CBC AUTO DIFFon 04-23-2022 BASO # 0.1 103/ul Normal 0.0-0.1 [facility] Comment on above: Performed By: #### P REG #### [facility] [address] [address] [address] Jameel Odell Basophils/100 WBC (Bld) 0.5 % Normal 0.2-2.[address] [facility] Comment on above: Performed By: #### P REG #### [facility] [address] [address] [address] Jameel Odell EO # 0.2 103/ul Normal 0.0-0.7 [facility] Comment on above: Performed By: #### P REG #### [facility] [address] [place] [address] Dr. Jameel Odell Eosinophils/100 WBC (Bld) 1.5 % Normal 0.9-7.0 [facility] Comment on above: Performed By: #### P REG #### [facility] [address] [place] [address] Dr. Jameel Odell Erythrocyte distribution width (RBC) [Ratio] 13.0 % Normal 11.0-15.0 [facility] Comment on above: Performed By: #### P REG #### [facility] [address] [place] [address] Dr. Jameel Odell Hematocrit (Bld) [Volume fraction] 43.9 % Normal 36.0-48.0 [facility] Comment on above: Performed By: #### P REG #### [facility] [address] [place] [address] Dr. Jameel Odell Hemoglobin (Bld) [Mass/Vol] 14.6 g/dL Normal 12.0-16.0 [facility] Comment on above: Performed By: #### P REG #### [facility] [address] [place] [address] Dr. Jameel Odell IG # 0.03 10e3/ul Normal 0.00-0.03 [facility] Comment on above: Performed By: #### P REG #### [facility] [address] [place] [address] Dr. Jameel Odell IG % 0.3 % Normal 0.0-0.5 [facility] Comment on above: Performed By: #### P REG #### [facility] [address] [place] [address] Dr. Jameel Odell LYMPH # 3.7 103/ul Normal 1.2-3.8 [facility] Comment on above: Performed By: #### P REG #### [facility] [address] [place] [address] Dr. Jameel Odell Lymphocytes/100 WBC (Bld) 36.3 % Normal 20.5-60.0 [facility] Comment on above: Performed By: #### P REG #### [facility] [address] [place] [address] Dr. Jameel Odell MANUAL DIFF REQ NO Normal [facility] Comment on above: Performed By: #### P REG #### [facility] [address] [place] [address] Dr. Jameel Odell MCH (RBC) [Entitic mass] 30.2 pg Normal 26.7-34.0 [facility] Comment on above: Performed By: #### P REG #### [facility] [address] [place] [address] Dr. Jameel Odell MCHC (RBC) [Mass/Vol] 33.3 g/dL Normal 29.9-35.2 [facility] Comment on above: Performed By: #### P REG #### [facility] [address] [place] [address] Dr. Jameel Odell MCV (RBC) [Entitic vol] 90.7 fL Normal 81.0-99.[address] [facility] Comment on above: Performed By: #### P REG #### [facility] [address] [place] [address] Dr. Jameel Odell MONO # 0.6 103/ul Normal 0.3-0.8 [facility] Comment on above: Performed By: #### P REG #### [facility] [address] [place], [place] [id number] Dr. Jameel Odell Monocytes/100 WBC (Bld) 5.7 % Normal 1.7-12.[address] [facility] Comment on above: Performed By: #### P REG #### [facility] [address] [place] [address] Dr. Jameel Odell NEUT # 5.7 103/ul Normal 1.4-6.5 [facility] Comment on above: Performed By: #### P REG #### [facility] [address] [place] [address] Dr. Jameel Odell Neutrophils/100 WBC (Bld) 55.7 % Normal 43.0-75.0 [facility] Comment on above: Performed By: #### P REG #### [facility] [address] [place] [address] Dr. Jameel Odell Platelet mean volume (Bld) [Entitic vol] 10.4 fL Normal 9.5-13.5 [facility] Comment on above: Performed By: #### P REG #### [facility] [address] [place] [address] Dr. Jameel Odell PLT 304 103/ul Normal 150-450 [facility] Comment on above: Performed By: #### P REG #### [facility] [address] [place] [address] Dr. Jameel Odell RBC 4.84 106/ul Normal 4.20-5.40 [facility] Comment on above: Performed By: #### P REG #### [facility] [address] [place] [address] Dr. Jameel Odell WBC 10.2 103/ul Normal 4.0-11.0 [facility] Comment on above: Performed By: #### P REG #### [facility] [address] [place] [address] LSPINE WO CONon 2 CT LSPINE WO CON EXAM: CT LSPINE WO CON HISTORY: DORSALGIA, UNSPECIFIED COMPARISON: None. TECHNIQUE: CT of the lumbar spine was acquired without IV contrast. Automated dose lowering techniques and/or adjustment was made according to patient size. FINDINGS: Mild straightening of the normal lumbar lordotic curvature visualized. The vertebral body heights are preserved. The lumbar spine alignment is maintained without evidence for spondylolisthesis. There is no evidence for an acute fracture. The posterior elements are intact. The lumbar spine alignment is maintained without evidence for spondylolisthesis. Moderate disc height loss visualized at L4-L5, mild at L5-S1. No significant disc herniations/bulges visualized from T12 through L3. At L4-L5 there is a mild to moderate disc bulge visualized slightly effacing the ventral aspect of the thecal sac with minimal central canal narrowing. Slight abutment visualized upon the descending right L5 nerve roots without evidence for displacement. There is a central disc protrusion visualized at L5-S1 without evidence for central canal narrowing. Mild left neuroforaminal narrowing visualized secondary to hypertrophic facet and ligamentum flavum thickening. IMPRESSION: 1. No acute fracture or traumatic malalignment of the lumbar spine. 2. Mild to moderate disc bulge visualized at L4-L5 with minimal central canal narrowing and slight abutment visualized upon the descending right L5 nerve root without evidence for displacement. 3. Central disc protrusion visualized at L5-S1 without evidence for central canal narrowing. Mild left neuroforaminal narrowing which was secondary to hypertrophic facet and ligamentum flavum thickening. Electronically authenticated by: BRIAN LORA Date: 2022-04-23 02:17 Normal [facility] Covid-19 PCR ([facility])on SARS-CoV-2 (COVID-19) RNA ABRAHAM+probe Ql (Unsp spec) Not detected Normal NOT DETECTED [facility] Comment on above: Result Comment: When diagnostic testing is negative, the possibility of a false negative should be considered in the context of a patient's recent exposures and the presence of clinical signs and symptoms consistent with SARS-CoV-2. This test is not yet approved or cleared by the [place] FDA. When there are no FDA-approved or cleared tests available, and other criteria are met, FDA can make tests available under an emergency access mechanism called an Emergency Use Authorization (EUA). The EUA for this test is supported by the [place] of Health and Human Service's declaration that circumstances exist to justify the emergency use of in vitro diagnostics for the detection and/or diagnosis of the virus that causes COVID-19. This EUA will remain in effect for the duration of the COVID-19 declaration justifying emergency of IVDs, unless it is terminated or revoked by the FDA (after which the test may no longer be used). Performed By: #### C VDTBH #### [facility] [address] [place] [address] Dr. Jameel Odell PREG HCG QUALon 04-23-2022 , QUAL Negative Normal NEGATIVE [facility] Comment on above: Performed By: #### P REG #### [facility] [address] [place] [address] Dr. Jameel Odell PROF 14(COMP METB)on 022 Albumin [Mass/Vol] 3.7 g/dL Normal 3.4-5.0 [facility] Comment on above: Performed By: #### P REG #### [facility] [address] [place] [address] Dr. Jameel Odell Albumin/Globulin [Mass ratio] 1.0 {ratio} Normal [facility] Comment on above: Performed By: #### P REG #### [facility] [address] [place] [address] Dr. Jameel Odell ALP [Catalytic activity/Vol] 74 U/L Normal 46-116 [facility] Comment on above: Performed By: #### P REG #### [facility] [address] [place] [address] Dr. Jameel Odell ALT [Catalytic activity/Vol] 33 U/L Normal 14-59 [facility] Comment on above: Performed By: #### P REG #### [facility] [address] [place] [address] Dr. Jameel Odell Anion gap [Moles/Vol] 13.9 mmol/L Normal [facility] Comment on above: Performed By: #### P REG #### [facility] [address] [place] [address] Dr. Jameel Odell AST [Catalytic activity/Vol] 21 U/L Normal 15-37 [facility] Comment on above: Performed By: #### P REG #### [facility] [address] [place] [address] Dr. Jameel Odell Bilirubin [Mass/Vol] 0.4 mg/dL Normal 0.2-1.0 [facility] Comment on above: Performed By: #### P REG #### [facility] [address] [address] [address] Jameel Odell Calcium [Mass/Vol] 9.6 mg/dL Normal 8.5-10.1 [facility] Comment on above: Performed By: #### P REG #### [facility] [address] [address] [address] Jameel Odell Chloride [Moles/Vol] 104 mmol/L Normal 98-107 [facility] Comment on above: Performed By: #### P REG #### [facility] [address] [place] [address] Dr. Jameel Odell CO2 [Moles/Vol] 23.8 mmol/L Normal 21.0-32.0 [facility] Comment on above: Performed By: #### P REG #### [facility] [address] [place] [address] Dr. Jameel Odell Creatinine [Mass/Vol] 0.73 mg/dL Normal 0.55-1.02 [facility] Comment on above: Performed By: #### P REG #### [facility] [address] [place] [address] Dr. Jameel Odell EGFR-AF NIGERIAN >60 Normal >=60 [facility] Comment on above: Performed By: #### P REG #### [facility] [address] [place] [address] Dr. Jameel Odell EGFR-NON AF NIGERIAN >60 Normal >=60 [facility] Comment on above: Performed By: #### P REG #### [facility] [address] [place] [address] Dr. Jameel Odell Globulin (S) [Mass/Vol] 3.8 g/dL Normal [facility] Comment on above: Performed By: #### P REG #### [facility] [address] [place] [address] Dr. Jameel Odell Glucose [Mass/Vol] 190 mg/dL Critically high 74-[address] [facility] Comment on above: Performed By: #### P REG #### [facility] [address] [address] [address] Jameel Odell Potassium [Moles/Vol] 3.7 mmol/L Normal 3.5-5.1 [facility] Comment on above: Performed By: #### P REG #### [facility] [address] [address] [address] Jameel Odell Protein [Mass/Vol] 7.5 g/dL Normal 6.4-8.2 [facility] Comment on above: Performed By: #### P REG #### [facility] [address] [address] [address] Jameel Odell Sodium [Moles/Vol] 138 mmol/L Normal 136-145 [facility] Comment on above: Performed By: #### P REG #### [facility] [address] [address] [address] Jameel Odell Urea nitrogen [Mass/Vol] 9.0 mg/dL Normal 7.0-18.0 [facility] Comment on above: Performed By: #### P REG #### [facility] [address] [address] [address] Jameel Odell Urea nitrogen/Creatinine [Mass ratio] 12.3 mg/mg Normal [facility] Comment on above: Performed By: #### P REG #### [facility] [address] [address] [address] Jameel Odell PROTIMEon 04-23-2022 INR Coag (PPP) [Relative time] 0.94 {INR} Normal [facility] Comment on above: Performed By: #### P TT, PT #### [facility] [address] [address] [address] Jameel Odell INR GUIDELINES SEE BELOW Normal [facility] Comment on above: Result Comment: [place] RED INR: 2.0 - 3.0 CONDITIONS NOT LISTED BELOW 2.5 - 3.5 FOR PROSTHETIC HEART VALVE REPLACEMENT 2.5 - 3.5 RECURRENT THROMBOSIS Performed By: #### P TT, PT #### [facility] [address] [address] [address] Jameel Odell PT Coag (PPP) [Time] 10.2 s Normal 9.0-11.6 [facility] Comment on above: Performed By: #### P TT, PT #### [facility] [address] [place] [address] Dr. Jameel Odell PTTon 04-23-2022 aPTT Coag (Bld) [Time] 24.0 s Normal 22.3-36.2 [facility] Comment on above: Performed By: #### P TT, PT #### [facility] [address] [place] [address] Dr. Jameel Odell CBC AUTO DIFFon 03-21-2022 BASO # 0.1 103/ul Normal 0.0-0.1 [facility] Comment on above: Performed By: #### C BC #### [facility] [address] [place] [address] Dr. Jameel Odell Basophils/100 WBC (Bld) 0.5 % Normal 0.2-2.[address] [facility] Comment on above: Performed By: #### C BC #### [facility] [address] [place] [address] Dr. Jameel Odell EO # 0.1 103/ul Normal 0.0-0.7 [facility] Comment on above: Performed By: #### C BC #### [facility] [address] [place] [address] Dr. Jameel Odell Eosinophils/100 WBC (Bld) 0.7 % Critically low 0.9-7.0 [facility] Comment on above: Performed By: #### C BC #### [facility] [address] [place] [address] Dr. Jameel Odell Erythrocyte distribution width (RBC) [Ratio] 13.0 % Normal 11.0-15.0 [facility] Comment on above: Performed By: #### C BC #### [facility] [address] [place] [address] Dr. Jameel Odell Hematocrit (Bld) [Volume fraction] 45.8 % Normal 36.0-48.0 [facility] Comment on above: Performed By: #### C BC #### [facility] [address] [place] [address] Dr. Jameel Odell Hemoglobin (Bld) [Mass/Vol] 14.8 g/dL Normal 12.0-16.0 [facility] Comment on above: Performed By: #### C BC #### [facility] [address] [place] [address] Dr. Jameel Odell IG # 0.04 10e3/ul Critically high 0.00-0.03 [facility] Comment on above: Performed By: #### C BC #### [facility] [address] [place] [address] Dr. Jameel Odell IG % 0.3 % Normal 0.0-0.5 [facility] Comment on above: Performed By: #### C BC #### [facility] [address] [place] [address] Dr. Jameel Odell LYMPH # 3.0 103/ul Normal 1.2-3.8 [facility] Comment on above: Performed By: #### C BC #### [facility] [address] [place] [address] Dr. Jameel Odell Lymphocytes/100 WBC (Bld) 25.5 % Normal 20.5-60.0 [facility] Comment on above: Performed By: #### C BC #### [facility] [address] [place] [address] Dr. Jameel Odell MANUAL DIFF REQ NO Normal [facility] Comment on above: Performed By: #### C BC #### [facility] [address] [place] [address] Dr. Jameel Odell MCH (RBC) [Entitic mass] 30.4 pg Normal 26.7-34.0 [facility] Comment on above: Performed By: #### C BC #### [facility] [address] [place] [address] Dr. Jameel Odell MCHC (RBC) [Mass/Vol] 32.3 g/dL Normal 29.9-35.2 [facility] Comment on above: Performed By: #### C BC #### [facility] [address] [address] [address] Jameel Odell MCV (RBC) [Entitic vol] 94.0 fL Normal 81.0-99.[address] [facility] Comment on above: Performed By: #### C BC #### [facility] [address] [address] [address] Jameel Odell MONO # 0.5 103/ul Normal 0.3-0.8 [facility] Comment on above: Performed By: #### C BC #### [facility] [address] [place] [address] Dr. Jameel Odell Monocytes/100 WBC (Bld) 4.1 % Normal 1.7-12.[address] [facility] Comment on above: Performed By: #### C BC #### [facility] [address] [place] [address] Dr. Jameel Odell NEUT # 8.1 103/ul Critically high 1.4-6.5 [facility] Comment on above: Performed By: #### C BC #### [facility] [address] [place] [address] Dr. Jameel Odell Neutrophils/100 WBC (Bld) 68.9 % Normal 43.0-75.0 [facility] Comment on above: Performed By: #### C BC #### [facility] [address] [place] [address] Dr. Jameel Odell Platelet mean volume (Bld) [Entitic vol] 11.4 fL Normal 9.5-13.5 [facility] Comment on above: Performed By: #### C BC #### [facility] [address] [place] [address] Dr. Jameel Odell PLT 330 103/ul Normal 150-450 [facility] Comment on above: Performed By: #### C BC #### [facility] [address] [place] [address] Dr. Jameel Odell RBC 4.87 106/ul Normal 4.20-5.40 [facility] Comment on above: Performed By: #### C BC #### [facility] [address] [place] [address] Dr. Jameel Odell WBC 11.8 103/ul Critically high 4.0-11.0 [facility] Comment on above: Performed By: #### C BC #### [facility] [address] [address] [address] Jameel Odell GLYCOHEMOGLOBIN A1Con 2021 ADA RECOMMENDATION SEE BELOW Normal [facility] Comment on above: Result Comment: ADA RECOMMENDED LIMIT 4.0 - 6.0 ADA THERAPEUTIC TARGET < 7.0 ACTION SUGGESTED > 7.0 Performed By: #### P REG #### [facility] [address] [address] [address] Jameel Odell Glucose [Mass/Vol] 146 mg/dL Normal [facility] Comment on above: Performed By: #### P REG #### [facility] [address] [address] [address] Jameel Odell HbA1c (Bld) [Mass fraction] 6.7 % Critically high 4.5-6.2 [facility] Comment on above: Performed By: #### P REG #### [facility] [address] [address] [address] Jameel Odell LIPID PROFILEon 03-21-2022 CHOL-HDL RATIO NORM SEE BELOW Normal [facility] Comment on above: Result Comment: 3.3 - 4.4 LOW RISK 4.4 - 7.1 AVERAGE RISK 7.1 - 11.0 MODERATE RISK >11.0 HIGH RISK Performed By: #### L IPID, BMP, TSH, LIVER #### [facility] [address] [address] [address] Jameel Odell Cholesterol [Mass/Vol] 141 mg/dL Normal <=200 [facility] Comment on above: Performed By: #### L IPID, BMP, TSH, LIVER #### [facility] [address] [address] [address] Jameel Odell Cholesterol in HDL [Mass/Vol] 36 mg/dL Critically low 40-60 [facility] Comment on above: Performed By: #### L IPID, BMP, TSH, LIVER #### [facility] [address] [address] [address] Jameel Odell Cholesterol in LDL [Mass/Vol] 72.6 mg/dL Normal [facility] Comment on above: Performed By: #### L IPID, BMP, TSH, LIVER #### [facility] [address] [place] [address] Dr. Jameel Odell Cholesterol.total/Candi sterol in HDL [Mass ratio] 3.9 {ratio} Normal [facility] Comment on above: Performed By: #### L IPID, BMP, TSH, LIVER #### [facility] [address] [address] [address] Jameel Odell HDL NORMAL > or = 60 mg/dl - LOW CARDIOVASCULAR RISK <40 mg/dl - HIGH CARDIOVASCULAR RISK Normal [facility] Comment on above: Performed By: #### L IPID, BMP, TSH, LIVER #### [facility] [address] [place] [address] Dr. Jameel Odell LDL CALC NORMAL SEE BELOW Normal [facility] Comment on above: Result Comment: <100 mg/dl OPTIMAL 100 - 129 mg/dl NEAR OR ABOVE OPTIMAL 130 - 159 mg/dl BORDERLINE HIGH 160 - 189 mg/dl HIGH >190 mg/dl VERY HIGH Performed By: #### L IPID, BMP, TSH, LIVER #### [facility] [address] [place] [address] Dr. Jameel Odell Triglyceride [Mass/Vol] 162 mg/dL Critically high <=150 [facility] Comment on above: Performed By: #### L IPID, BMP, TSH, LIVER #### [facility] [address] [place] [address] Dr. Jameel Odell VLDL CALC 32.4 mg/dL Normal [facility] Comment on above: Performed By: #### L IPID, BMP, TSH, LIVER #### [facility] [address] [place] [address] Dr. Jameel Odell LIVER PROFILEon 03-21-2022 Albumin [Mass/Vol] 3.8 g/dL Normal 3.4-5.0 [facility] Comment on above: Performed By: #### L IPID, BMP, TSH, LIVER #### [facility] [address] [address] [address] Jameel Odell Albumin/Globulin [Mass ratio] 0.9 {ratio} Normal [facility] Comment on above: Performed By: #### L IPID, BMP, TSH, LIVER #### [facility] [address] [address] [address] Jameel Odell ALP [Catalytic activity/Vol] 70 U/L Normal 46-116 [facility] Comment on above: Performed By: #### L IPID, BMP, TSH, LIVER #### [facility] [address] [place] [address] Dr. Jameel Odell ALT [Catalytic activity/Vol] 42 U/L Normal 14-59 [facility] Comment on above: Performed By: #### L IPID, BMP, TSH, LIVER #### [facility] [address] [place] [address] Dr. Jameel Odell AST [Catalytic activity/Vol] 24 U/L Normal 15-37 [facility] Comment on above: Performed By: #### L IPID, BMP, TSH, LIVER #### [facility] [address] [place] [address] Dr. Jameel Odell BILI, CONJUGATED 0.1 mg/dL Normal 0.0-0.2 [facility] Comment on above: Performed By: #### L IPID, BMP, TSH, LIVER #### [facility] [address] [place] [address] Dr. Jameel Odell Bilirubin [Mass/Vol] 0.4 mg/dL Normal 0.2-1.0 [facility] Comment on above: Performed By: #### L IPID, BMP, TSH, LIVER #### [facility] [address] [place] [address] Dr. Jameel Odell Globulin (S) [Mass/Vol] 4.1 g/dL Normal T [facility] Comment on above: Performed By: #### L IPID, BMP, TSH, LIVER #### [facility] [address] [place] [address] Dr. Jameel Odell Protein [Mass/Vol] 7.9 g/dL Normal 6.4-8.2 [facility] Comment on above: Performed By: #### L IPID, BMP, TSH, LIVER #### [facility] [address] [place] [address] Dr. Jameel Odell PROF CHEM 8 (BAS METB)on Anion gap [Moles/Vol] 9.4 mmol/L Normal [facility] Comment on above: Performed By: #### L IPID, BMP, TSH, LIVER #### [facility] [address] [place] [address] Dr. Jameel Odell Calcium [Mass/Vol] 9.3 mg/dL Normal 8.5-10.1 [facility] Comment on above: Performed By: #### L IPID, BMP, TSH, LIVER #### [facility] [address] [place] [address] Dr. Jameel Odell Chloride [Moles/Vol] 104 mmol/L Normal 98-107 [facility] Comment on above: Performed By: #### L IPID, BMP, TSH, LIVER #### [facility] [address] [place] [address] Dr. Jameel Odell CO2 [Moles/Vol] 27.2 mmol/L Normal 21.0-32.0 [facility] Comment on above: Performed By: #### L IPID, BMP, TSH, LIVER #### [facility] [address] [place] [address] Dr. Jameel Odell Creatinine [Mass/Vol] 0.80 mg/dL Normal 0.55-1.02 [facility] Comment on above: Performed By: #### L IPID, BMP, TSH, LIVER #### [facility] [address] [place] [address] Dr. Jameel Odell EGFR-AF NIGERIAN >60 Normal >=60 [facility] Comment on above: Performed By: #### L IPID, BMP, TSH, LIVER #### [facility] [address] [place] [address] Dr. Jameel Odell EGFR-NON AF NIGERIAN >60 Normal >=60 [facility] Comment on above: Performed By: #### L IPID, BMP, TSH, LIVER #### [facility] [address] [place] [address] Dr. Jameel Odell Glucose [Mass/Vol] 189 mg/dL Critically high 74-106 T [facility] Comment on above: Performed By: #### L IPID, BMP, TSH, LIVER #### [facility] [address] [place] [address] Dr. Jameel Odell Potassium [Moles/Vol] 4.6 mmol/L Normal 3.5-5.1 [facility] Comment on above: Performed By: #### L IPID, BMP, TSH, LIVER #### [facility] [address] [place] [address] Dr. Jameel Odell Sodium [Moles/Vol] 136 mmol/L Normal 136-145 [facility] Comment on above: Performed By: #### L IPID, BMP, TSH, LIVER #### [facility] [address] [place] [address] Dr. Jameel Odell Urea nitrogen [Mass/Vol] 9.0 mg/dL Normal 7.0-18.0 [facility] Comment on above: Performed By: #### L IPID, BMP, TSH, LIVER #### [facility] [address] [place] [address] Dr. Jameel Odell Urea nitrogen/Creatinine [Mass ratio] 11.2 mg/mg Normal [facility] Comment on above: Performed By: #### L IPID, BMP, TSH, LIVER #### [facility] [address] [place] [address] Dr. Jameel Odell TSHon 03-21-2022 TSH 0.862 uIU/mL Normal 0.358-3.740 [facility] Comment on above: Performed By: #### L IPID, BMP, TSH, LIVER #### [facility] [address] [place] [address] Dr. Jameel Odell VITAMIN D 25 OHon 03-21-2022 VIT D 25-OH 30.9 ng/mL Normal [facility] Comment on above: Performed By: #### P REG #### [facility] [address] [address] [address] Jameel Odell VIT D RANGES SEE BELOW Normal [facility] Comment on above: Result Comment: <20 ng/mL Vit D deficient 20 - <30 ng/mL Vit D insufficient 30 - 100 ng/mL Vit D sufficient >100 ng/mL Potential Toxicity Performed By: #### P REG #### [facility] [address] [address] [address] Jameel Odell CBC with Auto Differentialon 03-11-2022 Absolute Eos # 0.43 [facility] Absolute Immature Granulocyte 0.11 [facility] Absolute Lymph # 3.53 [facility] Absolute Tillman # 0.64 [facility] Basophils (Bld) [#/Vol] 0.21 10*3/uL High [facility] Basophils/100 WBC (Bld) 2 % 0 - 2 % B ON [facility] Eosinophils/100 WBC (Bld) 4 % 1 - 4 % [facility] Hematocrit (Bld) [Volume fraction] 42.0 % 36.3 - 47.1 % [facility] Hemoglobin (Bld) [Mass/Vol] 14.4 g/dL 11.9 - 15.1 g/dL [facility] Immature granulocytes/100 WBC (Bld) 1 % High 0 [facility] Interpretation and review of laboratory results Abnormal [facility] Lymphocytes/100 WBC (Bld) 33 % 24 - 43 % [facility] MCH (RBC) [Entitic mass] 31.0 pg 25.2 - 33.5 pg [facility] MCHC (RBC) [Mass/Vol] 34.3 g/dL 28.4 - 34.8 g/dL [facility] MCV (RBC) [Entitic vol] 90.3 fL 82.6 - 102.9 fL [facility] Monocytes/100 WBC (Bld) 6 % 3 - 12 % B ON [facility] Morphology Kenan (Bld) [Interp] Normal [facility] NRBC Automated 0.0 0.0 per 100 WBC [facility] Platelet distribution width (Bld) [Ratio] 12.6 % 11.8 - 14.4 % [facility] Platelet mean volume (Bld) [Entitic vol] 10.2 fL 8.1 - 13.5 fL [facility] Platelets (Bld) [#/Vol] 316 10*3/uL [facility] Promyelocytes 1 % High 0 [facility] Promyelocytes Absolute 0.11 High 0 k/uL [facility] RBC (Bld) [#/Vol] 4.65 10*6/uL 3.95 - 5.1 1 m/uL [facility] Segmented neutrophils/100 WBC (Bld) 53 % 36 - 65 % [facility] Segs Absolute 5.67 [facility] WBC (Bld) [#/Vol] 10.7 10*3/uL [facility] COVID-19, Rapidon 03-11-2022 SARS-CoV-2 (COVID-19) RNA ABRAHAM+probe Ql (Unsp spec) Not detected Not Detected [facility] Comment on above: Rapid NAAT: The specimen is NEGATIVE for SARS-CoV-2, the novel coronavirus associated with COVID-19. The ID NOW COVID-19 assay is designed to detect the virus that causes COVID-19 in patients with signs and symptoms of infection who are suspected of COVID-19. An individual without symptoms of COVID-19 and who is not shedding SARS-CoV-2 virus would expect to have a negative (not detected) result in this assay. Negative results should be treated as presumptive and, if inconsistent with clinical signs and symptoms or necessary for patient management, should be tested with an alternative molecular assay. Negative results do not preclude SARS-CoV-2 infection and should not be used as the sole basis for patient management decisions. Fact sheet for Healthcare Providers: https://www.fda.gov/media/461484/download Fact sheet for Patients: https://www.fda.gov/media/898986/download Methodology: Isothermal Nucleic Acid Amplification Specimen Description .NASOPHARYNGEAL SWAB [facility] CT ABDOMEN PELVIS W IV CONTR AST Additional Contrast? Noneon 03-11-2022 1. No acute abnormality identified. Normal appendix. 2. Hepatomegaly with steatosis. [facility] EXAMINATION: CT OF THE ABDOMEN AND PELVIS WITH CONTRAST 03/11/2022 2:15 am TECHNIQUE: CT of the abdomen and pelvis was performed with the administration of intravenous contrast. Multiplanar reformatted images are provided for review. Automated exposure control, iterative reconstruction, and/or weight based adjustment of the mA/kV was utilized to reduce the radiation dose to as low as reasonably achievable. COMPARISON: 08/27/2020 HISTORY: ORDERING SYSTEM PROVIDED HISTORY: [facility] abdominal pain TECHNOLOGIST PROVIDED HISTORY: RLQ abdominal pain Decision Support Exception - unselect if not a suspected or confirmed emergency medical condition->Emergenc y Medical Condition (MA) FINDINGS: Lower Chest: No acute findings. Organs: Hepatomegaly with findings of steatosis. The gallbladder is not visualized. The pancreas, spleen, adrenals and kidneys reveal no acute findings. GI/Bowel: There is no bowel dilatation or wall thickening identified. Normal appendix. Pelvis: No acute findings. Peritoneum/Retroper itoneum: No free air or free fluid. The aorta is normal in caliber. The visceral branches are patent. No lymphadenopathy. Bones/Soft Tissues: No abnormality identified. [facility] August Marinelli MD - 03/11/2022 EXAMINATION: CT OF THE ABDOMEN AND PELVIS WITH CONTRAST 03/11/2022 2:15 am TECHNIQUE: CT of the abdomen and pelvis was performed with the administration of intravenous contrast. Multiplanar reformatted images are provided for review. Automated exposure control, iterative reconstruction, and/or weight based adjustment of the mA/kV was utilized to reduce the radiation dose to as low as reasonably achievable. COMPARISON: 08/27/2020 HISTORY: ORDERING SYSTEM PROVIDED HISTORY: [facility] abdominal pain TECHNOLOGIST PROVIDED HISTORY: RLQ abdominal pain Decision Support Exception - unselect if not a suspected or confirmed emergency medical condition->Emergenc y Medical Condition (MA) FINDINGS: Lower Chest: No acute findings. Organs: Hepatomegaly with findings of steatosis. The gallbladder is not visualized. The pancreas, spleen, adrenals and kidneys reveal no acute findings. GI/Bowel: There is no bowel dilatation or wall thickening identified. Normal appendix. Pelvis: No acute findings. Peritoneum/Retroper itoneum: No free air or free fluid. The aorta is normal in caliber. The visceral branches are patent. No lymphadenopathy. Bones/Soft Tissues: No abnormality identified. IMPRESSION: 1. No acute abnormality identified. Normal appendix. 2. Hepatomegaly with steatosis. [email or web address] Work Phone: Radiology Study observation (narrative) RADHA REINOSO [employer] Work Phone: CT ABDOMEN PELVIS W IV CONTR AST Additional Contrast? NoneOrdered By: August Marinelli on 03-11-2022 [email or web address] Work Phone: Comprehensive Metabolic Pane l w/ Reflex to MGon 03-11-2022 Albumin [Mass/Vol] 4.5 g/dL 3.5 - 5.2 g/dL [facility] Albumin/Globulin [Mass ratio] 1.6 {ratio} [facility] ALP (Bld) [Catalytic activity/Vol] 72 U/L 35 - 104 U/L [facility] ALT [Catalytic activity/Vol] 45 U/L High 5 - 33 U/L [facility] Anion gap [Moles/Vol] 11 mmol/L 9 - 17 mmol/L [facility] AST [Catalytic activity/Vol] 27 U/L <32 [facility] Bilirubin [Mass/Vol] 0.41 mg/dL 0.3 - 1 .2 mg/dL [facility] Calcium [Mass/Vol] 9.5 mg/dL 8.6 - 10. 4 mg/dL [facility] Chloride [Moles/Vol] 105 mmol/L 98 - 10 7 mmol/L [facility] CO2 [Moles/Vol] 24 mmol/L 20 - 31 mmol/L [facility] Creatinine [Mass/Vol] 0.6 mg/dL 0.50 - 0.90 mg/dL [facility] Free PSA/Total PSA [Mass fraction] 7.3 g/dL 6.4 - 8.3 g/dL [facility] GFR >60 >60 mL/min [facility] GFR Non- >60 >60 mL/min [facility] Glucose [Mass/Vol] 201 mg/dL High 70 - 99 mg/dL [facility] Interpretation and review of laboratory results Abnormal [facility] Potassium [Moles/Vol] 4.2 mmol/L 3.7 - 5.3 mmol/L [facility] Sodium [Moles/Vol] 140 mmol/L 135 - 144 mmol/L [facility] [employer] Urea nitrogen (BldV) [Mass/Vol] 10 mg/dL 6 - 20 mg/dL [facility] Urea nitrogen/Creatinine (Bld) [Mass ratio] 17 [facility] Laboratory - Chemistry and C hemistry - challengeon 03-11-2022 GFR/1.73 sq M.predicted MDRD (S/P/Bld) [Vol rate/Area] [facility] Comment on above: Average GFR for 20-2 9 years old: 116 mL/min/1.73sq m Chronic Kidney Disease: <60 mL/min/1.73sq m Kidney failure: <15 mL/min/1.73sq m eGFR calculated using average adult body mass. Additional eGFR calculator available at: http://www.[employer]eng[employer]/multiple_crcl_2012.htm Stage 1: Some kidney damage normal GFR Stage 2: Mild kidney damage GFR 60-89 Stage 3: Moderate kidney damage GFR 30-59 Stage 4: Severe kidney damage GFR 15-29 Stage 5: Severe kidney damage GFR <15 ESRD - chronic treatment by dialysis or transplant , Urineon Beta HCG ( test) Ql (U) Negative NEGATIVE [facility] Comment on above: Specimens with hCG l evels near the threshold of the test (25 mIU/mL) may give a negative or indeterminate result. In such cases, another test should be performed with a new specimen in 48-72 hours. If early is suspected clinically in this setting, correlation with quantitative serum b-hCG level is suggested. [employer] has confirmed the use of plasma for this test. This has not been cleared or approved by the U.S. Food and Drug Administration. The FDA has determined that such clearance is not necessary. [facility] Urinalysis with Microscopico n 03-11-2022 - [facility] Bilirubin Urine Negative NEGATIVE [facility] [employer] Color, UA Yellow Yellow [facility] [employer] Epithelial Cells UA 2 TO 5 [facility] Glucose, Ur TRACE Abnormal NEGATIVE [facility] Interpretation and review of laboratory results Abnormal [facility] Ketones Ql (U) Negative NEGATIVE [facility] Leukocyte esterase Test strip Ql (U) Negative NEGATIVE [facility] Nitrite, Urine Negative NEGATIVE [facility] pH, UA 7.0 [facility] Protein, UA Negative NEGATIVE [facility] RBC, UA 0 TO 2 [facility] Specific [place], UA 1.020 [facility] Turbidity UA Clear Clear [facility] Urine Hgb Negative NEGATIVE [facility] Urobilinogen, Urine Normal Normal [facility] WBC, UA 0 TO 2 [facility] XR RADIUS ULNA RIGHT (2 VIEW S)on 01-04-2022 1. No acute fracture or malalignment. [facility] EXAMINATION: TWO XRAY VIEWS OF THE RIGHT FOREARM 01/04/2022 7:39 pm COMPARISON: None. HISTORY: ORDERING SYSTEM PROVIDED HISTORY: trauma TECHNOLOGIST PROVIDED HISTORY: trauma FINDINGS: No acute fracture or malalignment. No significant degenerative changes. Soft tissues unremarkable. [facility] Efra Gomez MD - 01/04/2022 EXAMINATION: TWO XRAY VIEWS OF THE RIGHT FOREARM 01/04/2022 7:39 pm COMPARISON: None. HISTORY: ORDERING SYSTEM PROVIDED HISTORY: trauma TECHNOLOGIST PROVIDED HISTORY: trauma FINDINGS: No acute fracture or malalignment. No significant degenerative changes. Soft tissues unremarkable. IMPRESSION: 1. No acute fracture or malalignment. [facility] Work Phone: Radiology Study observation (narrative) [facility] Work Phone: XR RADIUS ULNA RIGHT (2 VIEW S)Ordered By: Efra Gomez on 01-04-2022 [facility] Work Phone: XR WRIST RIGHT (MIN 3 VIEWS) on 01-04-2022 1. No acute fracture or malalignment. [facility] EXAMINATION: XRAY VIEWS OF THE RIGHT WRIST 01/04/2022 7:39 pm COMPARISON: None. HISTORY: ORDERING SYSTEM PROVIDED HISTORY: trauma TECHNOLOGIST PROVIDED HISTORY: trauma FINDINGS: No acute fracture or malalignment. No significant degenerative changes. Soft tissues unremarkable. Efra Soriano MD - 01/04/2022 EXAMINATION: XRAY VIEWS OF THE RIGHT WRIST 01/04/2022 7:39 pm COMPARISON: None. HISTORY: ORDERING SYSTEM PROVIDED HISTORY: trauma TECHNOLOGIST PROVIDED HISTORY: trauma FINDINGS: No acute fracture or malalignment. No significant degenerative changes. Soft tissues unremarkable. IMPRESSION: 1. No acute fracture or malalignment. [employer] Work Phone: [employer] Work Phone: Radiology Study observation (narrative) [employer] Work Phone: Glucose, Whole Bloodon 12-05 Glucose [Mass/Vol] 259 mg/dL High 74 - 100 mg/dL [facility] Interpretation and review of laboratory results Abnormal [facility] Glucose [Mass/Vol] 239 mg/dL High 74 - 100 mg/dL [facility] Interpretation and review of laboratory results Abnormal [facility] POCT glucoseOrdered By: Terra Tafoya on 12-05-2021 Glucose [Mass/Vol] 259 mg/dL [facility] Interpretation and review of laboratory results Abnormal [facility] COVID-19, Rapidon 09-06-2021 SARS-CoV-2 (COVID-19) RNA ABRAHAM+probe Ql (Unsp spec) Not detected Not Detected [facility] Comment on above: Rapid NAAT: The specimen is NEGATIVE for SARS-CoV-2, the novel coronavirus associated with COVID-19. The ID NOW COVID-19 assay is designed to detect the virus that causes COVID-19 in patients with signs and symptoms of infection who are suspected of COVID-19. An individual without symptoms of COVID-19 and who is not shedding SARS-CoV-2 virus would expect to have a negative (not detected) result in this assay. Negative results should be treated as presumptive and, if inconsistent with clinical signs and symptoms or necessary for patient management, should be tested with an alternative molecular assay. Negative results do not preclude SARS-CoV-2 infection and should not be used as the sole basis for patient management decisions. Fact sheet for Healthcare Providers: https://www.fda.gov/media/876039/download Fact sheet for Patients: https://www.fda.gov/media/530208/download Methodology: Isothermal Nucleic Acid Amplification Specimen Description .NASOPHARYNGEAL SWAB Advebs XR CHEST (2 VW)Ordered By: Jessica Ryan on 06-02-2021 No acute cardiopulmonary disease [employer] Phone: EXAMINATION: TWO XRAY VIEWS OF THE CHEST 06/02/2021 4:22 pm COMPARISON: 06/13/2020 HISTORY: ORDERING SYSTEM PROVIDED HISTORY: cough TECHNOLOGIST PROVIDED HISTORY: cough FINDINGS: There is suboptimal inspiration. The cardiac size is normal. No acute infiltrates or pleural effusions are seen. Pulmonary vascularity appears normal. . . No acute bony abnormalities. The hilar structures are normal. [employer] Phone: Pe[place], pn Incoming Radiant Results From [facility]/[employer] - 06/02/2021 7:32 PM EDT EXAMINATION: TWO XRAY VIEWS OF THE CHEST 06/02/2021 4:22 pm COMPARISON: 06/13/2020 HISTORY: ORDERING SYSTEM PROVIDED HISTORY: cough TECHNOLOGIST PROVIDED HISTORY: cough FINDINGS: There is suboptimal inspiration. The cardiac size is normal. No acute infiltrates or pleural effusions are seen. Pulmonary vascularity appears normal. . . No acute bony abnormalities. The hilar structures are normal. IMPRESSION: No acute cardiopulmonary disease [employer] Phone: [employer] Phone: FL UGI W AIR CONTRASTOrdered By: Yossi Wells on 05-26-2021 Mild spontaneous gastroesophageal reflux in otherwise unremarkable slightly limited (poor gastric mucosal coating) upper GI fluoroscopic evaluation. [employer] Phone: EXAMINATION: DOUBLE CONTRAST UPPER GI SERIES 05/26/2021 TECHNIQUE: Double contrast upper GI series was performed with barium and air contrast. FLUOROSCOPY DOSE AND TYPE OR TIME AND EXPOSURES: Total fluoroscopy time = 0.9 minutes. Total images acquired = 56. Radiation dose = 39.95 mGy. COMPARISON: None HISTORY: ORDERING SYSTEM PROVIDED HISTORY: Abdominal pain, epigastric FINDINGS: The esophagus is of normal caliber and demonstrates normal motility. There are no mucosal abnormalities seen. Patient orally ingested a 12.7 mm barium sulfate tablet which passed into the stomach without delay. The gastroesophageal junction is normal. Mild spontaneous gastroesophageal reflux. The stomach demonstrates normal distensibility and fold pattern. However, it should be noted that there is limited coating of the gastric mucosa.. The duodenal bulb and sweep are normal. [employer] Phone: [place], [facility] Incoming Radiant Results From [employer] - 05/26/2021 12:00 PM EDT EXAMINATION: DOUBLE CONTRAST UPPER GI SERIES 05/26/2021 TECHNIQUE: Double contrast upper GI series was performed with barium and air contrast. FLUOROSCOPY DOSE AND TYPE OR TIME AND EXPOSURES: Total fluoroscopy time = 0.9 minutes. Total images acquired = 56. Radiation dose = 39.95 mGy. COMPARISON: None HISTORY: ORDERING SYSTEM PROVIDED HISTORY: Abdominal pain, epigastric FINDINGS: The esophagus is of normal caliber and demonstrates normal motility. There are no mucosal abnormalities seen. Patient orally ingested a 12.7 mm barium sulfate tablet which passed into the stomach without delay. The gastroesophageal junction is normal. Mild spontaneous gastroesophageal reflux. The stomach demonstrates normal distensibility and fold pattern. However, it should be noted that there is limited coating of the gastric mucosa.. The duodenal bulb and sweep are normal. IMPRESSION: Mild spontaneous gastroesophageal reflux in otherwise unremarkable slightly limited (poor gastric mucosal coating) upper GI fluoroscopic evaluation. [employer] Phone: [employer] Phone: AmylaseOrdered By: Yossi hector on 05-16-2021 Amylase [Catalytic activity/Vol] 54 U/L 28 - 100 U/L [employer] Phone: Basic Metabolic PanelOrdered By: Yossi Wells on 05-16-2021 Anion gap [Moles/Vol] 15 mmol/L 9 - 17 mmol/L [employer] Phone: Calcium [Mass/Vol] 9.8 mg/dL 8.6 - 10. 4 mg/dL [employer] Phone: Chloride [Moles/Vol] 101 mmol/L 98 - 10 7 mmol/L [facility] Phone: CO2 [Moles/Vol] 19 mmol/L Low 20 - 31 mmol/L [facility] Phone: Creatinine [Mass/Vol] 0.67 mg/dL 0.50 - 0.90 mg/dL [employer] Phone: GFR >60 >60 mL/min [employer] Phone: GFR Non- >60 >60 mL/min [facility] Phone: Glucose [Mass/Vol] 316 mg/dL High 70 - 99 mg/dL [facility] Phone: Potassium [Moles/Vol] 4.3 mmol/L 3.7 - 5.3 mmol/L [facility] Phone: Sodium [Moles/Vol] 135 mmol/L 135 - 144 mmol/L [facility] Phone: Urea nitrogen (BldV) [Mass/Vol] 11 mg/dL 6 - 20 mg/dL [facility] Phone: Urea nitrogen/Creatinine (Bld) [Mass ratio] 16 [facility] Phone: CBC Auto DifferentialOrdered By: Yossi Wells on 05-16-2021 [employer] # 0.13 [facility] Work Phone: Absolute Immature Granulocyte 0.05 [facility] Work Phone: Absolute Lymph # 3.11 [facility] Work Phone: Absolute Tillman # 0.54 [facility] Work Phone: Basophils (Bld) [#/Vol] 0.04 10*3/uL [facility] Work Phone: Basophils/100 WBC (Bld) 0 % 0 - 2 % M [facility] Work Phone: Differential Type NOT REPORTED [employer] Phone: Eosinophils/100 WBC (Bld) 1 % 1 - 4 % [employer] Phone: Hematocrit (Bld) [Volume fraction] 42.8 % 36.3 - 47.1 % [employer] Phone: Hemoglobin.gastrointest inal spec 1 Ql (Stl) 14.6 g/dL 11.9 - 15.1 g/dL [employer] Phone: Immature granulocytes/100 WBC (Bld) 1 % High 0 [employer] Phone: Interpretation and review of laboratory results Abnormal [employer] Phone: Lymphocytes/100 WBC (Bld) 32 % 24 - 43 % [employer] Phone: MCH (RBC) [Entitic mass] 30.9 pg 25.2 - 33.5 pg [employer] Phone: MCHC (RBC) [Mass/Vol] 34.1 g/dL 28.4 - 34.8 g/dL [employer] Phone: MCV (RBC) [Entitic vol] 90.5 fL 82.6 - 102.9 fL [employer] Phone: Monocytes/100 WBC (Bld) 6 % 3 - 12 % M [place] Phone: NRBC Automated 0.0 0.0 per 100 WBC [employer] Phone: Platelet distribution width (Bld) [Ratio] 12.8 % 11.8 - 14.4 % [employer] Phone: Platelet Estimate NOT REPORTED [employer] Phone: Platelet mean volume (Bld) [Entitic vol] 10.9 fL 8.1 - 13.5 fL [employer] Phone: Platelets (Bld) [#/Vol] 283 10*3/uL [employer] Phone: RBC (Bld) [#/Vol] 4.73 10*6/uL 3.95 - 5.1 1 m/uL [employer] Phone: RBC (Bld) [#/Vol] NOT REPORTED [employer] Phone: Segmented neutrophils/100 WBC (Bld) 60 % 36 - 65 % [employer] Work Phone: Segs Absolute 6[employer]00 [employer] Work Phone: WBC (Bld) [#/Vol] 9.9 10*3/uL [employer] Phone: WBC (Bld) [#/Vol] NOT REPORTED [employer] Phone: [employer] Phone: Hepatic Function PanelOrdere d By: Yossi Wells on 05-16-2021 Albumin [Mass/Vol] 4.4 g/dL 3.5 - 5.2 g/dL [employer] Phone: Albumin/Globulin [Mass ratio] 1.4 {ratio} [employer] Phone: ALP (Bld) [Catalytic activity/Vol] 81 U/L 35 - 104 U/L [employer] Phone: ALT [Catalytic activity/Vol] 32 U/L 5 - 33 U/L [employer] Phone: AST [Catalytic activity/Vol] 32 U/L High <32 [employer] Phone: Bilirubin [Mass/Vol] 0.41 mg/dL 0.3 - 1 .2 mg/dL [employer] Phone: Bilirubin, Indirect CANNOT BE CALCULATED 0.00 - 1.00 mg/dL [employer] Phone: Bilirubin.indirect [Mass/Vol] mg/dL <0.31 mg/dL [employer] Phone: Free PSA/Total PSA [Mass fraction] 7.5 g/dL 6.4 - 8.3 g/dL [employer] Phone: Globulin NOT REPORTED 1.5 - 3.8 g/dL [employer] Phone: Laboratory - Chemistry and C hemistry - challengeOrdered By: Yossi Wells on 05-16-2021 GFR/1.73 sq M.predicted MDRD (S/P/Bld) [Vol rate/Area] [employer] Phone: Comment on above: Average GFR for 20-2 9 years old: 116 mL/min/1.73sq m Chronic Kidney Disease: <60 mL/min/1.73sq m Kidney failure: <15 mL/min/1.73sq m eGFR calculated using average adult body mass. Additional eGFR calculator available at: http://www.Kitenga/multiple_crcl_2012.htm Stage 1: Some kidney damage normal GFR Stage 2: Mild kidney damage GFR 60-89 Stage 3: Moderate kidney damage GFR 30-59 Stage 4: Severe kidney damage GFR 15-29 Stage 5: Severe kidney damage GFR <15 ESRD - chronic treatment by dialysis or transplant LipaseOrdered By: Yossi reyes on 05-16-2021 Lipase [Catalytic activity/Vol] 58 U/L 13 - 60 U/L [employer] Phone: No Panel InformationOrdered By: Yossi Wells on 05-16-2021 Interpretation and review of laboratory results Abnormal [employer] Phone: [employer] Phone: Otheron 09-25-2020 L4-5 central/right paracentral disc extrusion abutting descending L5 nerve root but not causing significant canal or neural foraminal compromise. Small disc protrusions T7-8 and T8-9. [employer]- [place], [place] EXAMINATION: MRI OF THE LUMBAR SPINE WITHOUT CONTRAST; MRI OF THE THORACIC SPINE WITHOUT CONTRAST, 09/24/2020 11:16 pm TECHNIQUE: Multiplanar multisequence MRI of the lumbar spine was performed without the administration of intravenous contrast.; Multiplanar multisequence MRI of the thoracic spine was performed without the administration of intravenous contrast. COMPARISON: Correlation with earlier CT HISTORY: ORDERING SYSTEM PROVIDED HISTORY: acute lumbar pain w/ B/L numbness tingling, LE weakness, urinary incontinence TECHNOLOGIST PROVIDED HISTORY: acute lumbar pain w/ B/L numbness tingling, LE weakness, urinary incontinence Is the patient ?->No FINDINGS: BONES/ALIGNMENT: There is normal alignment of the spine. The vertebral body heights are maintained. The bone marrow signal appears unremarkable. SPINAL CORD: The conus terminates normally. SOFT TISSUES: No paraspinal mass identified. T1-T12: There is no significant disc herniation, spinal canal stenosis or neural foraminal narrowing. T7-8: Small right paracentral disc protrusion without canal or neural foraminal compromise. T8-9: Small right paracentral disc protrusion without canal or neural foraminal compromise. T9-T12: There is no significant disc herniation, spinal canal stenosis or neural foraminal narrowing. L1-L2: There is no significant disc herniation, spinal canal stenosis or neural foraminal narrowing. L2-L3: There is no significant disc herniation, spinal canal stenosis or neural foraminal narrowing. L3-L4: There is no significant disc herniation, spinal canal stenosis or neural foraminal narrowing. L4-L5: As seen on CT, there is a central/right paracentral disc extrusion, measured at approximately 11 x 11 x 6 mm, which abuts the descending right L5 nerve root but does not cause significant canal compromise nor does it extend into the neural foramen.. L5-S1: There is no significant disc herniation, spinal canal stenosis or neural foraminal narrowing. [facility]- [place], [place], [employer] Incoming Radiant Results From [facility]/[employer] - 09/25/2020 12:18 AM EST EXAMINATION: MRI OF THE LUMBAR SPINE WITHOUT CONTRAST; MRI OF THE THORACIC SPINE WITHOUT CONTRAST, 09/24/2020 11:16 pm TECHNIQUE: Multiplanar multisequence MRI of the lumbar spine was performed without the administration of intravenous contrast.; Multiplanar multisequence MRI of the thoracic spine was performed without the administration of intravenous contrast. COMPARISON: Correlation with earlier CT HISTORY: ORDERING SYSTEM PROVIDED HISTORY: acute lumbar pain w/ B/L numbness tingling, LE weakness, urinary incontinence TECHNOLOGIST PROVIDED HISTORY: acute lumbar pain w/ B/L numbness tingling, LE weakness, urinary incontinence Is the patient ?->No FINDINGS: BONES/ALIGNMENT: There is normal alignment of the spine. The vertebral body heights are maintained. The bone marrow signal appears unremarkable. SPINAL CORD: The conus terminates normally. SOFT TISSUES: No paraspinal mass identified. T1-T12: There is no significant disc herniation, spinal canal stenosis or neural foraminal narrowing. T7-8: Small right paracentral disc protrusion without canal or neural foraminal compromise. T8-9: Small right paracentral disc protrusion without canal or neural foraminal compromise. T9-T12: There is no significant disc herniation, spinal canal stenosis or neural foraminal narrowing. L1-L2: There is no significant disc herniation, spinal canal stenosis or neural foraminal narrowing. L2-L3: There is no significant disc herniation, spinal canal stenosis or neural foraminal narrowing. L3-L4: There is no significant disc herniation, spinal canal stenosis or neural foraminal narrowing. L4-L5: As seen on CT, there is a central/right paracentral disc extrusion, measured at approximately 11 x 11 x 6 mm, which abuts the descending right L5 nerve root but does not cause significant canal compromise nor does it extend into the neural foramen.. L5-S1: There is no significant disc herniation, spinal canal stenosis or neural foraminal narrowing. IMPRESSION: L4-5 central/right paracentral disc extrusion abutting descending L5 nerve root but not causing significant canal or neural foraminal compromise. Small disc protrusions T7-8 and T8-9. [place], [place] APTTon 09-24-2020 aPTT Coag (Bld) [Time] 23.3 s Low [place], [place] Comment on above: IV Heparin Therapy Range: 62.0-94.0 Interpretation and review of laboratory results Abnormal [place], [place] CBC Auto Differentialon Basophils (Bld) [#/Vol] 0.00 10*3/uL [place], [place] Basophils/100 WBC (Bld) 0 % 0 - 2 % [place] [place] Differential Type NOT REPORTED [place] Eosinophils (Bld) [#/Vol] 0.12 10*3/uL [place] Eosinophils/100 WBC (Bld) 1 % 1 - 4 % [place] Erythrocyte distribution width (RBC) [Ratio] 13.6 % 11.8 - 14.4 % [place] Hematocrit (Bld) [Volume fraction] 41.4 % 36.3 - 47.1 % [place] Hemoglobin (Bld) [Mass/Vol] 13.4 g/dL 11.9 - 15.1 g/dL [place] Immature granulocytes (Bld) [#/Vol] 0 % 0 [place] Immature granulocytes (Bld) [#/Vol] 0.00 10*3/uL [place] Interpretation and review of laboratory results Abnormal [place] Lymphocytes (Bld) [#/Vol] 4.28 10*3/uL [place] Lymphocytes/100 WBC (Bld) 36 % 24 - 43 % [place] MCH (RBC) [Entitic mass] 27.5 pg 25.2 - 33.5 pg [place] MCHC (RBC) [Mass/Vol] 32.4 g/dL 28.4 - 34.8 g/dL [place] MCV (RBC) [Entitic vol] 84.8 fL 82.6 - 102.9 fL [place] Monocytes (Bld) [#/Vol] 0.71 10*3/uL [place] Monocytes/100 WBC (Bld) 6 % 3 - 12 % [place] Morphology Kenan (Bld) [Interp] Normal [place] Platelet mean volume (Bld) [Entitic vol] 10.0 fL 8.1 - 13.5 fL [place] Platelets (Bld) [#/Vol] NOT REPORTED [place] Platelets (Bld) [#/Vol] 322 10*3/uL [place] RBC (Bld) [#/Vol] 4.88 10*6/uL 3.95 - 5.1 1 m/uL [place] RBC morphology finding Nom (Bld) NOT REPORTED [place] Segmented neutrophils/100 WBC (Bld) 57 % 36 - 65 % [place] Segs Absolute 6.79 [place] WBC (Bld) [#/Vol] 0.0 10*3/uL 0.0 per 10 0 WBC [place] WBC (Bld) [#/Vol] 11.9 10*3/uL [place] WBC Morphology NOT REPORTED [place] Comprehensive Metabolic Pane l w/ Reflex to on 09-24-2020 Albumin [Mass/Vol] 4.2 g/dL 3.5 - 5.2 g/dL [place] Albumin/Globulin [Mass ratio] 1.3 {ratio} [place] ALP [Catalytic activity/Vol] 71 U/L 35 - 104 U/L [place] ALT [Catalytic activity/Vol] 20 U/L 5 - 33 U/L [place] Anion gap [Moles/Vol] 10 mmol/L 9 - 17 mmol/L [place] AST [Catalytic activity/Vol] 20 U/L <32 [place] Bilirubin Ql (U) 0.34 mg/dL 0.3 - 1.2 mg/dL [place] Bun/Cre Ratio 22 [place] Calcium [Mass/Vol] 9.4 mg/dL 8.6 - 10. 4 mg/dL [place] Chloride [Moles/Vol] 101 mmol/L 98 - 10 7 mmol/L [place] CO2 [Moles/Vol] 26 mmol/L 20 - 31 mmol/L [place] Creatinine [Mass/Vol] 0.6 mg/dL 0.5 - 0.9 mg/dL [place] GFR >60 >60 mL/min [place] GFR Non- >60 >60 mL/min [place] Glucose [Mass/Vol] 117 mg/dL High 70 - 99 mg/dL [place] Interpretation and review of laboratory results Abnormal [place] Potassium [Moles/Vol] 4.2 mmol/L 3.7 - 5.3 mmol/L [place] Protein [Mass/Vol] 7.5 g/dL 6.4 - 8.3 g/dL [place] Sodium [Moles/Vol] 137 mmol/L 135 - 144 mmol/L [place] Urea nitrogen [Mass/Vol] 13 mg/dL 6 - 20 mg/dL [place] Metabolic Panelon 09-24-2020 GFR/1.73 sq M predicted among non-blacks MDRD (S/P/Bld) [Vol rate/Area] [place], [place] Comment on above: Average GFR for 20-2 9 years old: 116 mL/min/1.73sq m Chronic Kidney Disease: <60 mL/min/1.73sq m Kidney failure: <15 mL/min/1.73sq m eGFR calculated using average adult body mass. Additional eGFR calculator available at: http://www.[employer]/multiple_crcl_2012.htm Stage 1: Some kidney damage normal GFR Stage 2: Mild kidney damage GFR 60-89 Stage 3: Moderate kidney damage GFR 30-59 Stage 4: Severe kidney damage GFR 15-29 Stage 5: Severe kidney damage GFR <15 ESRD - chronic treatment by dialysis or transplant Protime-INRon 09-24-2020 INR Coag (PPP) [Relative time] 1.0 {INR} [place], [place] Comment on above: Non-therapeutic Range: INR = 0.9-1.2 Therapeutic Range: Moderate Anticoagulant Intensity: INR = 2.0-3.0 High Anticoagulant Intensity: INR = 2.5-3.5 PT Coag (PPP) [Time] 12.7 s [place] LUMBAR SPINE WO CONTRASTo n 09-17-2020 Small disc herniation at L4-L5 with abutment of the descending L5 nerve roots. This appears similar compared to recent abdominal CT 08/27/2020. Disc bulge at L5-S1 also appears similar No acute bony abnormality [place], [place] EXAMINATION: CT OF THE LUMBAR SPINE WITHOUT CONTRAST 09/17/2020 TECHNIQUE: CT of the lumbar spine was performed without the administration of intravenous contrast. Multiplanar reformatted images are provided for review. Dose modulation, iterative reconstruction, and/or weight based adjustment of the mA/kV was utilized to reduce the radiation dose to as low as reasonably achievable. COMPARISON: Abdominal CT 08/27/2020 HISTORY: ORDERING SYSTEM PROVIDED HISTORY: lower back pain s/p twisting injury TECHNOLOGIST PROVIDED HISTORY: lower back pain s/p twisting injury Is the patient ?->No FINDINGS: BONES/ALIGNMENT: There is normal alignment of the spine. The vertebral body heights are maintained. No osseous destructive lesion is seen.. No fracture DEGENERATIVE CHANGES: Small central disc herniation seen at L4-L5. There is subtle abutment of the descending L5 nerve roots bilaterally. This appears similar compared to prior abdominal CT At L5-S1 diffuse disc bulge is seen. No obvious nerve root compression.. This appears similar compared to prior abdominal CT No significant bony or central foraminal stenosis SOFT TISSUES/RETROPERITO NEUM: No retroperitoneal adenopathy. [facility] [place], [place] Peyman, Mhpn Incoming Radiant Results From [facility]/[employer] - 09/17/2020 7:13 PM EST EXAMINATION: CT OF THE LUMBAR SPINE WITHOUT CONTRAST 09/17/2020 TECHNIQUE: CT of the lumbar spine was performed without the administration of intravenous contrast. Multiplanar reformatted images are provided for review. Dose modulation, iterative reconstruction, and/or weight based adjustment of the mA/kV was utilized to reduce the radiation dose to as low as reasonably achievable. COMPARISON: Abdominal CT 08/27/2020 HISTORY: ORDERING SYSTEM PROVIDED HISTORY: lower back pain s/p twisting injury TECHNOLOGIST PROVIDED HISTORY: lower back pain s/p twisting injury Is the patient ?->No FINDINGS: BONES/ALIGNMENT: There is normal alignment of the spine. The vertebral body heights are maintained. No osseous destructive lesion is seen.. No fracture DEGENERATIVE CHANGES: Small central disc herniation seen at L4-L5. There is subtle abutment of the descending L5 nerve roots bilaterally. This appears similar compared to prior abdominal CT At L5-S1 diffuse disc bulge is seen. No obvious nerve root compression.. This appears similar compared to prior abdominal CT No significant bony or central foraminal stenosis SOFT TISSUES/RETROPERITO NEUM: No retroperitoneal adenopathy. IMPRESSION: Small disc herniation at L4-L5 with abutment of the descending L5 nerve roots. This appears similar compared to recent abdominal CT 08/27/2020. Disc bulge at L5-S1 also appears similar No acute bony abnormality [place], [place] CBC Auto Differentialon 12-0 Basophils (Bld) [#/Vol] 0.04 10*3/uL [place] Basophils/100 WBC (Bld) 1 % 0 - 2 % [place] Differential Type NOT REPORTED [place] Eosinophils (Bld) [#/Vol] 0.11 10*3/uL [place] Eosinophils/100 WBC (Bld) 1 % 1 - 4 % [place] Erythrocyte distribution width (RBC) [Ratio] 13.6 % 11.8 - 14.4 % [place] Hematocrit (Bld) [Volume fraction] 41.7 % 36.3 - 47.1 % [place] Hemoglobin (Bld) [Mass/Vol] 13.0 g/dL 11.9 - 15.1 g/dL [place] Immature granulocytes (Bld) [#/Vol] 0 % 0 [place] Immature granulocytes (Bld) [#/Vol] 0.03 10*3/uL [place] Interpretation and review of laboratory results Abnormal [place] Lymphocytes (Bld) [#/Vol] 3.63 10*3/uL [place] Lymphocytes/100 WBC (Bld) 47 % High 24 - 43 % [place] MCH (RBC) [Entitic mass] 27.4 pg 25.2 - 33.5 pg [place] MCHC (RBC) [Mass/Vol] 31.2 g/dL 28.4 - 34.8 g/dL [place] MCV (RBC) [Entitic vol] 87.8 fL 82.6 - 102.9 fL [place] Monocytes (Bld) [#/Vol] 0.48 10*3/uL [place] Monocytes/100 WBC (Bld) 6 % 3 - 12 % [place] Platelet mean volume (Bld) [Entitic vol] 9.7 fL 8.1 - 13.5 fL [place] Platelets (Bld) [#/Vol] 345 10*3/uL [place] Platelets (Bld) [#/Vol] NOT REPORTED [place] RBC (Bld) [#/Vol] 4.75 10*6/uL 3.95 - 5.1 1 m/uL [place] RBC morphology finding Nom (Bld) NOT REPORTED [place] Segmented neutrophils/100 WBC (Bld) 45 % 36 - 65 % [place] Segs Absolute 3.46 [place] WBC (Bld) [#/Vol] 0.0 10*3/uL 0.0 per 10 0 WBC [place] WBC (Bld) [#/Vol] 7.8 10*3/uL [place] WBC Morphology NOT REPORTED [place] ABDOMEN PELVIS W IV CONTR AST Additional Contrast? Noneon 08-27-2020 EXAMINATION: CT OF THE ABDOMEN AND PELVIS WITH CONTRAST 08/27/2020 1:18 pm TECHNIQUE: CT of the abdomen and pelvis was performed with the administration of intravenous contrast. Multiplanar reformatted images are provided for review. Dose modulation, iterative reconstruction, and/or weight based adjustment of the mA/kV was utilized to reduce the radiation dose to as low as reasonably achievable. COMPARISON: CT abdomen and pelvis July 29, 2019. HISTORY: ORDERING SYSTEM PROVIDED HISTORY: rlq pain TECHNOLOGIST PROVIDED HISTORY: rlq pain FINDINGS: Lower Chest: Mild atelectasis/scarrin g involving the right lung base. No pericardial or pleural effusions. Organs: The dome of the liver is excluded from today's examination. Portal vein, pancreas and adrenal glands all appear unremarkable. Borderline hepatosplenomegaly. No enhancing renal mass or hydronephrosis. Abdominal aorta appears normal in caliber. GI/Bowel: Stomach is grossly unremarkable. Small bowel appears nondilated. Appendix is normal. No acute colonic abnormality. Pelvis: Urinary bladder is grossly unremarkable. No adnexal mass. Fibroid uterus. Peritoneum/Retroper itoneum: No free air, free fluid or lymphadenopathy. Bones/Soft Tissues: Osseous structures demonstrate degenerative change. Abdominal wall demonstrates no acute findings. [place] 1. No acute intra-abdominal process. 2. Borderline hepatosplenomegaly. 3. Fibroid uterus. [place], [place] Peyamn, Mhpn Incoming Radiant Results From [employer] - 08/27/2020 1:39 PM EST EXAMINATION: CT OF THE ABDOMEN AND PELVIS WITH CONTRAST 08/27/2020 1:18 pm TECHNIQUE: CT of the abdomen and pelvis was performed with the administration of intravenous contrast. Multiplanar reformatted images are provided for review. Dose modulation, iterative reconstruction, and/or weight based adjustment of the mA/kV was utilized to reduce the radiation dose to as low as reasonably achievable. COMPARISON: CT abdomen and pelvis July 29, 2019. HISTORY: ORDERING SYSTEM PROVIDED HISTORY: rlq pain TECHNOLOGIST PROVIDED HISTORY: rlq pain FINDINGS: Lower Chest: Mild atelectasis/scarrin g involving the right lung base. No pericardial or pleural effusions. Organs: The dome of the liver is excluded from today's examination. Portal vein, pancreas and adrenal glands all appear unremarkable. Borderline hepatosplenomegaly. No enhancing renal mass or hydronephrosis. Abdominal aorta appears normal in caliber. GI/Bowel: Stomach is grossly unremarkable. Small bowel appears nondilated. Appendix is normal. No acute colonic abnormality. Pelvis: Urinary bladder is grossly unremarkable. No adnexal mass. Fibroid uterus. Peritoneum/Retroper itoneum: No free air, free fluid or lymphadenopathy. Bones/Soft Tissues: Osseous structures demonstrate degenerative change. Abdominal wall demonstrates no acute findings. IMPRESSION: 1. No acute intra-abdominal process. 2. Borderline hepatosplenomegaly. 3. Fibroid uterus. [place] Comprehensive Metabolic Pane mando 08-27-2020 Albumin [Mass/Vol] 4.4 g/dL 3.5 - 5.2 g/dL [place] Albumin/Globulin [Mass ratio] 1.3 {ratio} [place] ALP [Catalytic activity/Vol] 77 U/L 35 - 104 U/L [place] ALT [Catalytic activity/Vol] 27 U/L 5 - 33 U/L [place] Anion gap [Moles/Vol] 9 mmol/L 9 - 17 mmol/L [place] AST [Catalytic activity/Vol] 23 U/L <32 [place] Bilirubin Ql (U) 0.29 mg/dL Low 0.3 - 1.2 mg/dL [place] Bun/Cre Ratio 13 [place] Calcium [Mass/Vol] 9.6 mg/dL 8.6 - 10. 4 mg/dL [place] Chloride [Moles/Vol] 102 mmol/L 98 - 10 7 mmol/L [place] CO2 [Moles/Vol] 26 mmol/L 20 - 31 mmol/L [place] Creatinine [Mass/Vol] 0.64 mg/dL 0.5 - 0.9 mg/dL [place] GFR >60 >60 mL/min [place] GFR Non- >60 >60 mL/min [place] Glucose [Mass/Vol] 144 mg/dL High 70 - 99 mg/dL [place] Potassium [Moles/Vol] 4.2 mmol/L 3.7 - 5.3 mmol/L [place] Protein [Mass/Vol] 7.7 g/dL 6.4 - 8.3 g/dL [place] Sodium [Moles/Vol] 137 mmol/L 135 - 144 mmol/L [place] Urea nitrogen [Mass/Vol] 8 mg/dL 6 - 20 mg/dL [place] Lactic Acid, Plasmaon 2019 Lactate [Moles/Vol] 1.4 mmol/L 0.5 - 2. 2 mmol/L [place], [place] Lactic Acid, Whole Blood NOT REPORTED 0.7 - 2.1 mmol/L [place] Lipaseon 08-27-2020 Lipase [Catalytic activity/Vol] 73 U/L High 13 - 60 U/L [place] Metabolic Panelon 08-27-2020 GFR/1.73 sq M predicted among non-blacks MDRD (S/P/Bld) [Vol rate/Area] [place], [place] Comment on above: Average GFR for 20-2 9 years old: 116 mL/min/1.73sq m Chronic Kidney Disease: <60 mL/min/1.73sq m Kidney failure: <15 mL/min/1.73sq m eGFR calculated using average adult body mass. Additional eGFR calculator available at: http://www.[employer]/multiple_crcl_2012.htm Stage 1: Some kidney damage normal GFR Stage 2: Mild kidney damage GFR 60-89 Stage 3: Moderate kidney damage GFR 30-59 Stage 4: Severe kidney damage GFR 15-29 Stage 5: Severe kidney damage GFR <15 ESRD - chronic treatment by dialysis or transplant Otheron 08-27-2020 Interpretation and review of laboratory results Abnormal [place], [place] , Urineon 0 Beta HCG ( test) Ql (U) Negative NEGATIVE [place], [place] Comment on above: Specimens with hCG l evels near the threshold of the test (25 mIU/mL) may give a negative or indeterminate result. In such cases, another test should be performed with a new specimen in 48-72 hours. If early is suspected clinically in this setting, correlation with quantitative serum b-hCG level is suggested. [facility] has confirmed the use of plasma for this test. This has not been cleared or approved by the U.S. Food and Drug Administration. The FDA has determined that such clearance is not necessary. Urinalysis with Microscopico n 08-27-2020 Amorphous, UA NOT REPORTED None [place], [place] Bacteria, UA NOT REPORTED None [place] Bilirubin Urine Negative NEGATIVE [place], [place] Casts UA NOT REPORTED /LPF [place] Color, UA YELLOW YELLOW [place], [place] Crystals, UA NOT REPORTED None /HPF [place], [place] Epithelial Cells UA 0 TO 2 [place], [place] Glucose, Ur Negative NEGATIVE [place] Interpretation and review of laboratory results Abnormal [place] Ketones Ql (U) Negative NEGATIVE [place] Leukocyte esterase Test strip Ql (U) Negative NEGATIVE [place] Mucus, UA NOT REPORTED None [place], [place] Nitrite, Urine Negative NEGATIVE [place] Other Observations UA NOT REPORTED NOT REQ. [place] pH, UA 5.5 [place] Protein (U) [Mass/Vol] Negative NEGATIVE [place], [place] RBC (U) [#/Vol] None [facility], [place] Renal Epithelial, UA NOT REPORTED 0 /HPF [place] Specific [place], UA 1.025 High [place], [place] Trichomonas, UA NOT REPORTED None [facility] [place] Turbidity UA CLEAR CLEAR [place] Urinalysis Comments NOT REPORTED [place] Urine Hgb Negative NEGATIVE [place] Urobilinogen, Urine Normal Normal [place] WBC, UA None [place] Yeast, UA NOT REPORTED None [facility], [place] CT Head WO Contraston 2019 No acute intracranial abnormality. [place] EXAMINATION: CT OF THE HEAD WITHOUT CONTRAST 08/13/2020 2:48 pm TECHNIQUE: CT of the head was performed without the administration of intravenous contrast. Dose modulation, iterative reconstruction, and/or weight based adjustment of the mA/kV was utilized to reduce the radiation dose to as low as reasonably achievable. COMPARISON: None. HISTORY: ORDERING SYSTEM PROVIDED HISTORY: fall - on eliquis - blurry vision right lower lateral TECHNOLOGIST PROVIDED HISTORY: fall - on eliquis - blurry vision right lower lateral Is the patient ?->No FINDINGS: BRAIN/VENTRICLES: There is no acute intracranial hemorrhage, mass effect or midline shift. No abnormal extra-axial fluid collection. The olivares-white differentiation is maintained without evidence of an acute infarct. There is no evidence of hydrocephalus. ORBITS: The visualized portion of the orbits demonstrate no acute abnormality. SINUSES: The visualized paranasal sinuses and mastoid air cells demonstrate no acute abnormality. SOFT TISSUES/SKULL: No acute abnormality of the visualized skull or soft tissues. [place] Peyman, Mhpn Incoming Radiant Results From [facility]/[employer] - 08/13/2020 3:12 PM EST EXAMINATION: CT OF THE HEAD WITHOUT CONTRAST 08/13/2020 2:48 pm TECHNIQUE: CT of the head was performed without the administration of intravenous contrast. Dose modulation, iterative reconstruction, and/or weight based adjustment of the mA/kV was utilized to reduce the radiation dose to as low as reasonably achievable. COMPARISON: None. HISTORY: ORDERING SYSTEM PROVIDED HISTORY: fall - on eliquis - blurry vision right lower lateral TECHNOLOGIST PROVIDED HISTORY: fall - on eliquis - blurry vision right lower lateral Is the patient ?->No FINDINGS: BRAIN/VENTRICLES: There is no acute intracranial hemorrhage, mass effect or midline shift. No abnormal extra-axial fluid collection. The olivares-white differentiation is maintained without evidence of an acute infarct. There is no evidence of hydrocephalus. ORBITS: The visualized portion of the orbits demonstrate no acute abnormality. SINUSES: The visualized paranasal sinuses and mastoid air cells demonstrate no acute abnormality. SOFT TISSUES/SKULL: No acute abnormality of the visualized skull or soft tissues. IMPRESSION: No acute intracranial abnormality. [place] Homocysteine, Serumon 2019 Homocysteine 5.6 umol/L <15.0 [place] CBC With Auto Differentialon 07-25-2020 Basophils (Bld) [#/Vol] 0.04 10*3/uL [place] Basophils/100 WBC (Bld) 0 % 0 - 2 % [place] Differential Type NOT REPORTED [place] Eosinophils (Bld) [#/Vol] 0.11 10*3/uL [place] Eosinophils/100 WBC (Bld) 1 % 1 - 4 % [place] Erythrocyte distribution width (RBC) [Ratio] 14.1 % 11.8 - 14.4 % [place] Hematocrit (Bld) [Volume fraction] 37.5 % 36.3 - 47.1 % [place] Hemoglobin (Bld) [Mass/Vol] 11.7 g/dL Low 11.9 - 15.1 g/dL [place] Immature granulocytes (Bld) [#/Vol] 0 % 0 [place] Immature granulocytes (Bld) [#/Vol] 0.03 10*3/uL [place] Interpretation and review of laboratory results Abnormal [place] Lymphocytes (Bld) [#/Vol] 3.82 10*3/uL [place] Lymphocytes/100 WBC (Bld) 42 % 24 - 43 % [place] MCH (RBC) [Entitic mass] 28.1 pg 25.2 - 33.5 pg [place] MCHC (RBC) [Mass/Vol] 31.2 g/dL 28.4 - 34.8 g/dL [place] MCV (RBC) [Entitic vol] 90.1 fL 82.6 - 102.9 fL [place] Monocytes (Bld) [#/Vol] 0.49 10*3/uL [place] Monocytes/100 WBC (Bld) 5 % 3 - 12 % [place] Platelet mean volume (Bld) [Entitic vol] 9.9 fL 8.1 - 13.5 fL [place] Platelets (Bld) [#/Vol] 357 10*3/uL [place] Platelets (Bld) [#/Vol] NOT REPORTED [place] RBC (Bld) [#/Vol] 4.16 10*6/uL 3.95 - 5.1 1 m/uL [place] RBC morphology finding Nom (Bld) NOT REPORTED [place] Segmented neutrophils/100 WBC (Bld) 52 % 36 - 65 % [place] Segs Absolute 4.55 [place] WBC (Bld) [#/Vol] 9.0 10*3/uL [place] WBC (Bld) [#/Vol] 0.0 10*3/uL 0.0 per 10 0 WBC [place] WBC Morphology NOT REPORTED [place] CBCon 06-15-2020 Erythrocyte distribution width (RBC) [Ratio] 16.3 % High 11.8 - 14.4 % [place] Hematocrit (Bld) [Volume fraction] 31.8 % Low 36.3 - 47.1 % [place] Hemoglobin (Bld) [Mass/Vol] 10.1 g/dL Low 11.9 - 15.1 g/dL [place] Interpretation and review of laboratory results Abnormal [place] MCH (RBC) [Entitic mass] 29.4 pg 25.2 - 33.5 pg [place] MCHC (RBC) [Mass/Vol] 31.8 g/dL 28.4 - 34.8 g/dL [place] MCV (RBC) [Entitic vol] 92.7 fL 82.6 - 102.9 fL [place] Platelet mean volume (Bld) [Entitic vol] 11.9 fL 8.1 - 13.5 fL [place] Platelets (Bld) [#/Vol] 146 10*3/uL [place] RBC (Bld) [#/Vol] 3.43 10*6/uL Low 3.95 - 5.1 1 m/uL [place] WBC (Bld) [#/Vol] 0.0 10*3/uL 0.0 per 10 0 WBC [place] WBC (Bld) [#/Vol] 8.5 10*3/uL [place] Surgical Pathologyon 020 Surgical Pathology Report [id number] [facility] [employer] CONSULTING PATHOLOGISTS [facility] ANATOMIC PATHOLOGY [address] [place] [address]. [place], [place] [address] SURGICAL PATHOLOGY CONSULTATION Patient Name: DOROTA SWANSON MR#: [id number] Specimen #[id number] Procedures/Addenda PERIPHERAL BLOOD REPORT Date Ordered: 06/15/2020 Status: Signed Out Date Complete: 06/15/2020 By: August Koch M.D. Date Reported: 06/15/2020 INTERPRETATION PERIPHERAL BLOOD: MILD NORMOCYTIC ANEMIA WITH MILD RETICULOCYTOSIS, SUGGESTING POSTHEMORRHAGIC ANEMIA, HEMOLYTIC ANEMIA, TREATED NUTRITIONAL ANEMIA, ETC. NO SPECIFIC MORPHOLOGIC RBC ABNORMALITIES. >10% REACTIVE LYMPHOCYTES SUGGEST VIRAL INFECTION, HINA. EBV, CMV, HEPATITIS, DRUG REACTION, ETC. RESULTS-COMMENTS PERIPHERAL BLOOD STUDY CBC: Please see the electronic health record for CBC parameters ([id number], 06/13/2020, 20:18). PLATELETS: Platelets show normal morphology. LEUKOCYTES: > 10% reactive lymphocytes; increased bands ERYTHROCYTES: Mild Anisocytosis, polychromasia August Koch M.D. Source: 1: PERIPHERAL BLOOD FOR REVIEW BY PATHOLOGIST [place] VL DUP LOWER EXTREMITY VENOU S BILATERALon 06-15-2020 Peyman, Mhpn Incoming Cardio Results From [employer] - 06/15/2020 8:06 AM EDT [facility] Vascular Lower Extremities DVT Study Procedure Patient Name SKY Date of Study 06/14/2020 DOROTA Al Date of 1995 Gender Female Age 24 year(s) Race Room Number 0320 Corporate ID # [id number] Patient MR # [id number] [employer] N[employer] Fatima Interpreting Physician August Marinelli MD Referring Referring Physician Dedra Pineda Nurse Practitioner Procedure Type of Study: Veins: Lower Extremities DVT Study, Venous Scan Lower Bilateral. Patient Status:In Patient. Technical Quality:Adequate visualization. Comments:INDICATION S: PE Conclusions Summary Negative for acute DVT. Lobulated cystic structure in the medial proximal left calf. This may represent a bursa or possibly ruptured popliteal cyst. Consider follow-up imaging if symptoms are present in this area. Signature ------- ------- ------- ------- Findings: Right Impression: Left Impression: The common femoral, femoral, deep The common femoral, femoral, deep femoral, popliteal, tibials, femoral, popliteal, tibials, peroneal, and saphenous veins were peroneal, and saphenous veins were evaluated. evaluated. All veins were compressible with All veins were compressible with normal doppler responses. normal doppler responses. A prominent lymph node was visualized in the groin. A complex lobulated finding was visualized in the proximal medial calf which measured 1.43 x 2.34 x 6.26 cm. This finding did not appear to connect with the venous or arterial vessels. Velocities are measured in cm/s ; Diameters are measured in cm Right Lower Extremities DVT Study Measurements Right 2D Measurements + + +-------- -------+ + !Location !Visualized!Roxanna sibility!Thrombosis ! + + +-------- -------+ + !Common Femoral !Yes !Yes !None ! + + +-------- -------+ + !Prox Femoral !Yes !Yes !None ! + + +-------- -------+ + !Mid Femoral !Yes !Yes !None ! + + +-------- -------+ + !Dist Femoral !Yes !Yes !None ! + + +-------- -------+ + !Deep Femoral !Yes !Yes !None ! + + +-------- -------+ + !Popliteal !Yes !Yes !None ! + + +-------- -------+ + !Sapheno Femoral Junction !Yes !Yes !None ! + + +-------- -------+ + !PTV !Yes !Yes !None ! + + +-------- -------+ + !Peroneal !Yes !Yes !None ! + + +-------- -------+ + !Gastroc !Yes !Yes !None ! + + +-------- -------+ + !GSV Thigh !Yes !Yes !None ! + + +-------- -------+ + !GSV Knee !Yes !Yes !None ! + + +-------- -------+ + !GSV Ankle !Yes !Yes !None ! + + +-------- -------+ + !SSV !Yes !Yes !None ! + + +-------- -------+ + Right Doppler Measurements + ---------+------+-- ----+ + !Location !Signal!Reflux!Refl ux (msec) ! + ---------+------+-- ----+ + !Common Femoral !Phasic!No ! ! + ---------+------+-- ----+ + !Prox Femoral !Phasic!No ! ! + ---------+------+-- ----+ + !Popliteal !Phasic!No ! ! + ---------+------+-- ----+ + Left Lower Extremities DVT Study Measurements Left 2D Measurements + + +-------- -------+ + !Location !Visualized!Roxanna sibility!Thrombosis ! + + +-------- -------+ + !Common Femoral !Yes !Yes !None ! + + +-------- -------+ + !Prox Femoral !Yes !Yes !None ! + + +-------- -------+ + !Mid Femoral !Yes !Yes !None ! + + +-------- -------+ + !Dist Femoral !Yes !Yes !None ! + + +-------- -------+ + !Deep Femoral !Yes !Yes !None ! + + +-------- -------+ + !Popliteal !Yes !Yes !None ! + + +-------- -------+ + !Sapheno Femoral Junction !Yes !Yes !None ! + + +-------- -------+ + !PTV !Yes !Yes !None ! + + +-------- -------+ + !Peroneal !Yes !Yes !None ! + + +-------- -------+ + !Gastroc !Yes !Yes !None ! + + +-------- -------+ + !GSV Thigh !Yes !Yes !None ! + + +-------- -------+ + !GSV Knee !Yes !Yes !None ! + + +-------- -------+ + !GSV Ankle !Yes !Yes !None ! + + +-------- -------+ + !SSV !Yes !Yes !None ! + + +-------- -------+ + Left Doppler Measurements + ---------+------+-- ----+ + !Location !Signal!Reflux!Refl ux (msec) ! + ---------+------+-- ----+ + !Common Femoral !Phasic!No ! ! + ---------+------+-- ----+ + !Prox Femoral !Phasic!No ! ! + ---------+------+-- ----+ + !Popliteal !Phasic!No ! ! + ---------+------+-- ----+ + [facility] Vascular Lower Extremities DVT Study Procedure Patient Name SKY Date of Study 06/14/2020 DOROTA Al Date of 1995 Gender Female Age 24 year(s) Race Room Number 0320 Corporate ID # [id number] Patient MR # [id number] [employer] Hel[employer] NGA Fatima Interpreting Physician August Marinelli MD Referring Referring Physician Dedra Pineda Nurse Practitioner Procedure Type of Study: Veins: Lower Extremities DVT Study, Venous Scan Lower Bilateral. Patient Status:In Patient. Technical Quality:Adequate visualization. Comments:INDICATION S: PE Conclusions Summary Negative for acute DVT. Lobulated cystic structure in the medial proximal left calf. This may represent a bursa or possibly ruptured popliteal cyst. Consider follow-up imaging if symptoms are present in this area. Signature ------- ------- ------- ------- Findings: Right Impression: Left Impression: The common femoral, femoral, deep The common femoral, femoral, deep femoral, popliteal, tibials, femoral, popliteal, tibials, peroneal, and saphenous veins were peroneal, and saphenous veins were evaluated. evaluated. All veins were compressible with All veins were compressible with normal doppler responses. normal doppler responses. A prominent lymph node was visualized in the groin. A complex lobulated finding was visualized in the proximal medial calf which measured 1.43 x 2.34 x 6.26 cm. This finding did not appear to connect with the venous or arterial vessels. Velocities are measured in cm/s ; Diameters are measured in cm Right Lower Extremities DVT Study Measurements Right 2D Measurements + + +-------- -------+ + !Location !Visualized!Roxanna sibility!Thrombosis ! + + +-------- -------+ + !Common Femoral !Yes !Yes !None ! + + +-------- -------+ + !Prox Femoral !Yes !Yes !None ! + + +-------- -------+ + !Mid Femoral !Yes !Yes !None ! + + +-------- -------+ + !Dist Femoral !Yes !Yes !None ! + + +-------- -------+ + !Deep Femoral !Yes !Yes !None ! + + +-------- -------+ + !Popliteal !Yes !Yes !None ! + + +-------- -------+ + !Sapheno Femoral Junction !Yes !Yes !None ! + + +-------- -------+ + !PTV !Yes !Yes !None ! + + +-------- -------+ + !Peroneal !Yes !Yes !None ! + + +-------- -------+ + !Gastroc !Yes !Yes !None ! + + +-------- -------+ + !GSV Thigh !Yes !Yes !None ! + + +-------- -------+ + !GSV Knee !Yes !Yes !None ! + + +-------- -------+ + !GSV Ankle !Yes !Yes !None ! + + +-------- -------+ + !SSV !Yes !Yes !None ! + + +-------- -------+ + Right Doppler Measurements + ---------+------+-- ----+ + !Location !Signal!Reflux!Refl ux (msec) ! + ---------+------+-- ----+ + !Common Femoral !Phasic!No ! ! + ---------+------+-- ----+ + !Prox Femoral !Phasic!No ! ! + ---------+------+-- ----+ + !Popliteal !Phasic!No ! ! + ---------+------+-- ----+ + Left Lower Extremities DVT Study Measurements Left 2D Measurements + + +-------- -------+ + !Location !Visualized!Roxanna sibility!Thrombosis ! + + +-------- -------+ + !Common Femoral !Yes !Yes !None ! + + +-------- -------+ + !Prox Femoral !Yes !Yes !None ! + + +-------- -------+ + !Mid Femoral !Yes !Yes !None ! + + +-------- -------+ + !Dist Femoral !Yes !Yes !None ! + + +-------- -------+ + !Deep Femoral !Yes !Yes !None ! + + +-------- -------+ + !Popliteal !Yes !Yes !None ! + + +-------- -------+ + !Sapheno Femoral Junction !Yes !Yes !None ! + + +-------- -------+ + !PTV !Yes !Yes !None ! + + +-------- -------+ + !Peroneal !Yes !Yes !None ! + + +-------- -------+ + !Gastroc !Yes !Yes !None ! + + +-------- -------+ + !GSV Thigh !Yes !Yes !None ! + + +-------- -------+ + !GSV Knee !Yes !Yes !None ! + + +-------- -------+ + !GSV Ankle !Yes !Yes !None ! + + +-------- -------+ + !SSV !Yes !Yes !None ! + + +-------- -------+ + Left Doppler Measurements + ---------+------+-- ----+ + !Location !Signal!Reflux!Refl ux (msec) ! + ---------+------+-- ----+ + !Common Femoral !Phasic!No ! ! + ---------+------+-- ----+ + !Prox Femoral !Phasic!No ! ! + ---------+------+-- ----+ + !Popliteal !Phasic!No ! ! + ---------+------+-- ----+ + [place] CBCon 06-14-2020 Erythrocyte distribution width (RBC) [Ratio] 16.1 % High 11.8 - 14.4 % [place] Hematocrit (Bld) [Volume fraction] 30.2 % Low 36.3 - 47.1 % [place] Hemoglobin (Bld) [Mass/Vol] 9.4 g/dL Low 11.9 - 15.1 g/dL [place] Interpretation and review of laboratory results Abnormal [place] MCH (RBC) [Entitic mass] 29.4 pg 25.2 - 33.5 pg [place] MCHC (RBC) [Mass/Vol] 31.1 g/dL 28.4 - 34.8 g/dL [place] MCV (RBC) [Entitic vol] 94.4 fL 82.6 - 102.9 fL [place] Platelet mean volume (Bld) [Entitic vol] 11.4 fL 8.1 - 13.5 fL [place] Platelets (Bld) [#/Vol] 158 10*3/uL [place] RBC (Bld) [#/Vol] 3.20 10*6/uL Low 3.95 - 5.1 1 m/uL [place] WBC (Bld) [#/Vol] 7.0 10*3/uL [place] WBC (Bld) [#/Vol] 0.0 10*3/uL 0.0 per 10 0 WBC [place] EKG 12 Leadon 06-14-2020 Atrial Rate 115 BPM [place] P Henderson 40 degrees [place] P-R Interval 128 ms [place] Q-T Interval 328 ms [place] QRS Duration 74 ms [place] QTc Calculation (Bazett) 453 ms [place] R [place] 35 degrees [place] T [place] 34 degrees [place] Ventricular Rate 115 BPM [place] Peyman, Mhpn Incoming Ekg Results From [facility] [place] 06/14/2020 9:39 AM EDT Sinus tachycardia Septal infarct , age undetermined Abnormal ECG When compared with ECG of 25-MAY-2019 20:08, No significant change was found Confirmed by KLAUS ROLLE ([id number]) on 06/14/2020 9:39:42 AM [place] Sinus tachycardia Septal infarct , age undetermined Abnormal ECG When compared with ECG of 25-MAY-2019 20:08, No significant change was found Confirmed by KLAUS ROLLE ([id number]) on 06/14/2020 9:39:42 AM [place] Basic Metabolic Panelon 05-25 Anion gap [Moles/Vol] 10 mmol/L 9 - 17 mmol/L [place] Bun/Cre Ratio 7 Low [place] Calcium [Mass/Vol] 8.7 mg/dL 8.6 - 10. 4 mg/dL [place] Chloride [Moles/Vol] 105 mmol/L 98 - 10 7 mmol/L [place] CO2 [Moles/Vol] 23 mmol/L 20 - 31 mmol/L [place] Creatinine [Mass/Vol] 1.05 mg/dL High 0.5 - 0.9 mg/dL [place] GFR >60 >60 mL/min [place] GFR Non- >60 >60 mL/min [place] Glucose [Mass/Vol] 106 mg/dL High 70 - 99 mg/dL [place] Interpretation and review of laboratory results Abnormal [place] Potassium [Moles/Vol] 3.6 mmol/L Low 3.7 - 5.3 mmol/L [place] Sodium [Moles/Vol] 138 mmol/L 135 - 144 mmol/L [place] Urea nitrogen [Mass/Vol] 7 mg/dL 6 - 20 mg/dL [place] CBC Auto Differentialon 05-25 Atypical Lymphocytes 47 % [place] Atypical Lymphocytes Absolute 3.56 k/uL [place] Basophils (Bld) [#/Vol] 0.08 10*3/uL [place] Basophils/100 WBC (Bld) 1 % 0 - 2 % [place] Differential Type NOT REPORTED [place] Eosinophils (Bld) [#/Vol] 0.08 10*3/uL [place] Eosinophils/100 WBC (Bld) 1 % 1 - 4 % [place] Erythrocyte distribution width (RBC) [Ratio] 15.8 % High 11.8 - 14.4 % [place] Hematocrit (Bld) [Volume fraction] 34.4 % Low 36.3 - 47.1 % [place] Hemoglobin (Bld) [Mass/Vol] 10.8 g/dL Low 11.9 - 15.1 g/dL [place] Immature granulocytes (Bld) [#/Vol] 0.00 10*3/uL [place] Immature granulocytes (Bld) [#/Vol] 0 % 0 [place] Interpretation and review of laboratory results Abnormal [place] Lymphocytes (Bld) [#/Vol] 1.29 10*3/uL [place] Lymphocytes/100 WBC (Bld) 17 % Low 24 - 43 % [place] MCH (RBC) [Entitic mass] 29.3 pg 25.2 - 33.5 pg [place] MCHC (RBC) [Mass/Vol] 31.4 g/dL 28.4 - 34.8 g/dL [place] MCV (RBC) [Entitic vol] 93.2 fL 82.6 - 102.9 fL [place] Monocytes (Bld) [#/Vol] 0.23 10*3/uL [place] Monocytes/100 WBC (Bld) 3 % 3 - 12 % [place] Morphology Kenan (Bld) [Interp] Normal [place] Platelet mean volume (Bld) [Entitic vol] 10.3 fL 8.1 - 13.5 fL [place] Platelets (Bld) [#/Vol] NOT REPORTED [place] Platelets (Bld) [#/Vol] 195 10*3/uL [place] RBC (Bld) [#/Vol] 3.69 10*6/uL Low 3.95 - 5.1 1 m/uL [place] RBC morphology finding Nom (Bld) NOT REPORTED [place] Segmented neutrophils/100 WBC (Bld) 31 % Low 36 - 65 % [place] Segs Absolute 2.36 [place] WBC (Bld) [#/Vol] 0.0 10*3/uL 0.0 per 10 0 WBC [place] WBC (Bld) [#/Vol] 7.6 10*3/uL [place] WBC Morphology NOT REPORTED [place] CT CHEST PULMONARY EMBOLISM W CONTRASTon 06-13-2020 Peyman, pn Incoming Radiant Results From [facility]/[employer] - 06/13/2020 10:43 PM EDT EXAMINATION: CTA OF THE CHEST 06/13/2020 10:03 pm TECHNIQUE: CTA of the chest was performed after the administration of intravenous contrast. Multiplanar reformatted images are provided for review. MIP images are provided for review. Dose modulation, iterative reconstruction, and/or weight based adjustment of the mA/kV was utilized to reduce the radiation dose to as low as reasonably achievable. COMPARISON: July 20, 2010 HISTORY: ORDERING SYSTEM PROVIDED HISTORY: eval for pe TECHNOLOGIST PROVIDED HISTORY: eval for pe FINDINGS: Pulmonary Arteries: Pulmonary arteries are adequately opacified for evaluation. Filling defects are seen within the distal left pulmonary artery, subsegmental branches of the left upper lobe pulmonary artery, and within right and left lower lobe segmental and subsegmental branches of the pulmonary arteries, consistent with acute emboli. No evidence of RV strain is present. Main pulmonary artery is normal in caliber. Mediastinum: No evidence of mediastinal lymphadenopathy. The heart and pericardium demonstrate no acute abnormality. There is no acute abnormality of the thoracic aorta. Lungs/pleura: Patchy opacities are seen within the lung bases, right greater than left, and may represent areas of atelectasis, early pneumonia, or potentially small areas of pulmonary infarct given the bilateral pulmonary emboli. Heterogeneous perfusion is seen within the lungs, with patchy areas of relative lucency within the lung parenchyma, likely related to bilateral pulmonary emboli. No pleural effusion or pneumothorax is present. Upper Abdomen: Limited images of the upper abdomen are unremarkable. Soft Tissues/Bones: No acute bone or soft tissue abnormality. IMPRESSION: 1. Multiple bilateral pulmonary emboli, with greatest involvement of the lower lobes, without evidence of RV strain 2. Critical results were called by Dr. Serafin Dietz to FARHAT LLANES on 06/13/2020 at 22:38. [place] 1. Multiple bilateral pulmonary emboli, with greatest involvement of the lower lobes, without evidence of RV strain 2. Critical results were called by Dr. Serafin iDetz to FARHAT LLANES on 06/13/2020 at 22:38. [place] EXAMINATION: CTA OF THE CHEST 06/13/2020 10:03 pm TECHNIQUE: CTA of the chest was performed after the administration of intravenous contrast. Multiplanar reformatted images are provided for review. MIP images are provided for review. Dose modulation, iterative reconstruction, and/or weight based adjustment of the mA/kV was utilized to reduce the radiation dose to as low as reasonably achievable. COMPARISON: July 20, 2010 HISTORY: ORDERING SYSTEM PROVIDED HISTORY: eval for pe TECHNOLOGIST PROVIDED HISTORY: eval for pe FINDINGS: Pulmonary Arteries: Pulmonary arteries are adequately opacified for evaluation. Filling defects are seen within the distal left pulmonary artery, subsegmental branches of the left upper lobe pulmonary artery, and within right and left lower lobe segmental and subsegmental branches of the pulmonary arteries, consistent with acute emboli. No evidence of RV strain is present. Main pulmonary artery is normal in caliber. Mediastinum: No evidence of mediastinal lymphadenopathy. The heart and pericardium demonstrate no acute abnormality. There is no acute abnormality of the thoracic aorta. Lungs/pleura: Patchy opacities are seen within the lung bases, right greater than left, and may represent areas of atelectasis, early pneumonia, or potentially small areas of pulmonary infarct given the bilateral pulmonary emboli. Heterogeneous perfusion is seen within the lungs, with patchy areas of relative lucency within the lung parenchyma, likely related to bilateral pulmonary emboli. No pleural effusion or pneumothorax is present. Upper Abdomen: Limited images of the upper abdomen are unremarkable. Soft Tissues/Bones: No acute bone or soft tissue abnormality. [place] D-Dimer, Quantitativeon 05-25 D-Dimer, Quant 3.94 [place] Comment on above: When combined with a low clinical probability, a D dimer value of <0.50 mg/L FEU is considered negative for DVT and PE (negative predictive value of 98%, sensitivity of 97%). If this test is not being used to help rule out DVT and PE, then the following reference range should be utilized: 0.00 - 0.59 mg/L FEU. The D-Dimer assay is intended for use as an aid in the diagnosis of venous thromboembolism (DVT and PE) and the results should be interpreted in conjunction with the patient's medical history, clinical presentation, and other findings. Elevated levels of D-dimer activity can be seen in any state of coagulation activation and is not recommended in patients with therapeutic dose anticoagulant therapy for >24 hours, fibrinolytic therapy within the previous 7 days, trauma or surgery within the previous 4 weeks, disseminated malignancies, aortic aneurysm, sepsis, severe infections, pneumonia, severe skin infections, liver cirrhosis, advanced age, coronary disease, diabetes, and . A very low percentage of patients with DVT may yield D-dimer results below the cutoff of 0.5 mg/L FEU. This is known to be more prevalent in patients with distal DVT. Interpretation and review of laboratory results Abnormal [place] Metabolic Panelon 06-13-2020 GFR/1.73 sq M predicted among non-blacks MDRD (S/P/Bld) [Vol rate/Area] [place], [place] Comment on above: Average GFR for 20-2 9 years old: 116 mL/min/1.73sq m Chronic Kidney Disease: <60 mL/min/1.73sq m Kidney failure: <15 mL/min/1.73sq m eGFR calculated using average adult body mass. Additional eGFR calculator available at: http://www.[employer]ineFrontier/multiple_crcl_2012.htm Stage 1: Some kidney damage normal GFR Stage 2: Mild kidney damage GFR 60-89 Stage 3: Moderate kidney damage GFR 30-59 Stage 4: Severe kidney damage GFR 15-29 Stage 5: Severe kidney damage GFR <15 ESRD - chronic treatment by dialysis or transplant Reticulocyteson 06-13-2020 Absolute Retic # 0.185 [place] Immature Retic Fract 32.8 % High 2.7 - 18.3 % [place] Interpretation and review of laboratory results Abnormal [place] Retic % 5.1 % High 0.5 - 1.9 % [place] Retic Hemoglobin 32.0 pg 28.2 - 35.7 pg [place] Troponinon 06-13-2020 Troponin I.cardiac [Mass/Vol] NOT REPORTED [place] Troponin T.cardiac [Mass/Vol] NOT REPORTED <0.03 ng/mL [place] Troponin, High Sensitivity <6 0 - 14 ng/L [place] Comment on above: High Sensitivity Troponin values cannot be compared with other Troponin methodologies. Patients with high levels of Biotin oral intake (i.e >5mg/day) may have falsely decreased Troponin levels. Samples collected within 8 hours of biotin intake may require additional information for diagnosis. XR CHEST PORTABLEon 06-13-20 No acute cardiopulmonary pathology. [place] EXAMINATION: ONE XRAY VIEW OF THE CHEST 06/13/2020 7:56 pm COMPARISON: 09/24/2019 HISTORY: ORDERING SYSTEM PROVIDED HISTORY: chest pain TECHNOLOGIST PROVIDED HISTORY: chest pain FINDINGS: Single portable frontal view of the chest is submitted for review. The cardiac silhouette is normal in size. Lung parenchyma is clear without focal airspace consolidation, sizeable pleural effusion, or pneumothorax. Trachea is midline. Visualized osseous structures and soft tissues are grossly intact. [place] Peyman, Mhpn Incoming Radiant Results From [facility]/[employer] - 06/13/2020 8:03 PM EDT EXAMINATION: ONE XRAY VIEW OF THE CHEST 06/13/2020 7:56 pm COMPARISON: 09/24/2019 HISTORY: ORDERING SYSTEM PROVIDED HISTORY: chest pain TECHNOLOGIST PROVIDED HISTORY: chest pain FINDINGS: Single portable frontal view of the chest is submitted for review. The cardiac silhouette is normal in size. Lung parenchyma is clear without focal airspace consolidation, sizeable pleural effusion, or pneumothorax. Trachea is midline. Visualized osseous structures and soft tissues are grossly intact. IMPRESSION: No acute cardiopulmonary pathology. [place] CBC auto differentialon Basophils (Bld) [#/Vol] 10*3/uL [place] Basophils/100 WBC (Bld) 0 % 0 - 2 % [place] Differential Type NOT REPORTED [place] Eosinophils (Bld) [#/Vol] 0.08 10*3/uL [place] Eosinophils/100 WBC (Bld) 1 % 1 - 4 % [place] Erythrocyte distribution width (RBC) [Ratio] 14.7 % High 11.8 - 14.4 % [place] Hematocrit (Bld) [Volume fraction] 27.0 % Low 36.3 - 47.1 % [place] Hemoglobin (Bld) [Mass/Vol] 8.8 g/dL Low 11.9 - 15.1 g/dL [place] Immature granulocytes (Bld) [#/Vol] 1 % High 0 [place] Immature granulocytes (Bld) [#/Vol] 0.07 10*3/uL [place] Interpretation and review of laboratory results Abnormal [place] Lymphocytes (Bld) [#/Vol] 2.83 10*3/uL [place] Lymphocytes/100 WBC (Bld) 23 % Low 24 - 43 % [place] MCH (RBC) [Entitic mass] 30.8 pg 25.2 - 33.5 pg [place] MCHC (RBC) [Mass/Vol] 32.6 g/dL 28.4 - 34.8 g/dL [place] MCV (RBC) [Entitic vol] 94.4 fL 82.6 - 102.9 fL [place] Monocytes (Bld) [#/Vol] 0.81 10*3/uL [place] Monocytes/100 WBC (Bld) 7 % 3 - 12 % [place] Platelet mean volume (Bld) [Entitic vol] 11.2 fL 8.1 - 13.5 fL [place] Platelets (Bld) [#/Vol] NOT REPORTED [place] Platelets (Bld) [#/Vol] 192 10*3/uL [place] RBC (Bld) [#/Vol] 2.86 10*6/uL Low 3.95 - 5.1 1 m/uL [place] RBC morphology finding Nom (Bld) NOT REPORTED [place] Segmented neutrophils/100 WBC (Bld) 68 % High 36 - 65 % [place] Segs Absolute 8.56 [place] WBC (Bld) [#/Vol] 12.4 10*3/uL [place] WBC (Bld) [#/Vol] 0.0 10*3/uL 0.0 per 10 0 WBC [place] WBC Morphology NOT REPORTED [place] Glucose, Fastingon 0 Glucose [Mass/Vol] 88 mg/dL 70 - 99 mg/dL [place] Surgical Pathologyon 020 Surgical Pathology Report -- Diagnosis -- RIGHT FALLOPIAN TUBE, SALPINGECTOMY: - PARATUBAL ADENOFIBROMA. - MULTIPLE PARATUBAL CYSTS. - NEGATIVE FOR OVARIAN PARENCHYMA OR ATYPIA. Devang Leach M.D. Electronically Signed Out 05/24/2020 Clinical Information Operative Findings: RIGHT FALLOPIAN TUBE Source of Specimen 1: RIGHT FALLOPIAN TUBE Gross Description DOROTA SWANSON, RIGHT FALLOPIAN TUBE 6.0 cm long x 0.6 cm in diameter fimbriated fallopian tube segment. The serosa is pink-rodriguez, focally disrupted with multiple paratubal cysts up to 2.6 cm. The largest contains impacted mucinous material with a few areas of papillary excrescences. Tube entirely, 4cs. tm Microscopic Description Microscopic examination performed. SURGICAL PATHOLOGY CONSULTATION Patient Name: DOROTA SWANSON [facility] Rec: [id number] Path Number: [id number] [facility] [employer] [facility] ANATOMIC PATHOLOGY [address] [place] [address]. [place], [place] [address] [place], [place] Glucose, Whole Bloodon 05-23 Glucose [Mass/Vol] 152 mg/dL High 74 - 100 mg/dL [place] Interpretation and review of laboratory results Abnormal [place] Glucose [Mass/Vol] 110 mg/dL High 74 - 100 mg/dL [place] Interpretation and review of laboratory results Abnormal [place] Glucose [Mass/Vol] 178 mg/dL High 74 - 100 mg/dL [place] Interpretation and review of laboratory results Abnormal [place] Hemoglobinon 05-23-2020 Hemoglobin (Bld) [Mass/Vol] 9.9 g/dL Low 11.9 - 15.1 g/dL [place] Interpretation and review of laboratory results Abnormal [place] CBCon 05-22-2020 Erythrocyte distribution width (RBC) [Ratio] 14.6 % High 11.8 - 14.4 % [place] Hematocrit (Bld) [Volume fraction] 35.2 % Low 36.3 - 47.1 % [place] Hemoglobin (Bld) [Mass/Vol] 11.6 g/dL Low 11.9 - 15.1 g/dL [place] Interpretation and review of laboratory results Abnormal [place] MCH (RBC) [Entitic mass] 30.9 pg 25.2 - 33.5 pg [place] MCHC (RBC) [Mass/Vol] 33.0 g/dL 28.4 - 34.8 g/dL [place] MCV (RBC) [Entitic vol] 93.9 fL 82.6 - 102.9 fL [place] Platelet mean volume (Bld) [Entitic vol] 11.1 fL 8.1 - 13.5 fL [place] Platelets (Bld) [#/Vol] 245 10*3/uL [place] RBC (Bld) [#/Vol] 3.75 10*6/uL Low 3.95 - 5.1 1 m/uL [place] WBC (Bld) [#/Vol] 14.0 10*3/uL [place] WBC (Bld) [#/Vol] 0.0 10*3/uL 0.0 per 10 0 WBC [place] DRUG SCREEN MULTI URINEon Amphetamine Screen, Ur Negative NEGATIVE [place] Barbiturate Screen, Ur Negative NEGATIVE [place] Benzodiazepine Screen, Urine Negative NEGATIVE [place] Buprenorphine Urine Negative NEGATIVE [facility], [place] Cannabinoid Scrn, Ur Negative NEGATIVE [facility], [place] Cocaine Metabolite, Urine Negative NEGATIVE [facility] MDMA, Urine NOT REPORTED [facility] [place] [place] Methadone Screen, Urine Negative NEGATIVE M [facility], [place] Methamphetamine, Urine Negative NEGATIVE [place] Opiates, Urine Negative NEGATIVE [place] Oxycodone Screen, Ur Negative NEGATIVE [place] Phencyclidine, Urine Negative NEGATIVE [facility], [place] Propoxyphene, Urine Negative NEGATIVE [place] Test Information NOT REPORTED [place] Tricyclic Antidepressants, Urine Negative NEGATIVE [place] Comment on above: Drug screen results are to be used for medical purposes only. All positive results are unconfirmed. Testing for employment or legal uses should be sent to a reference laboratory for confirmation. TYPE AND SCREENon 05-22-2020 ABO/Rh Positive [place], [place] Arm Band Number [id number] [place], [place] Expiration Date 05/25/2020,2359 [place] Urinalysison 04-29-2020 Bilirubin Urine Negative NEGATIVE [place] Color, UA YELLOW YELLOW [place] Glucose, Ur Negative NEGATIVE [place] Ketones Ql (U) Negative NEGATIVE [place] Leukocyte esterase Test strip Ql (U) Negative NEGATIVE [place] Nitrite, Urine Negative NEGATIVE [place] pH, UA 7.5 [place] Protein (U) [Mass/Vol] Negative NEGATIVE [facility], [place] Specific [place], UA 1.010 [place], [place] Turbidity UA CLEAR CLEAR [place] Urinalysis Comments NOT REPORTED [place] Urine Hgb Negative NEGATIVE [place] Urobilinogen, Urine Normal Normal [place] Urinalysison 04-08-2020 Bilirubin Urine Negative [facility]IVE [facility] [place], [place] Color, UA YELLOW YELLOW [place] Glucose, Ur Negative NEGATIVE [place] Ketones Ql (U) Negative NEGATIVE [place] Leukocyte esterase Test strip Ql (U) Negative NEGATIVE [place] Nitrite, Urine Negative NEGATIVE [place] pH, UA 6.5 [place] Protein (U) [Mass/Vol] Negative NEGATIVE [place] Specific [place], UA 1.020 [place], [place] Turbidity UA CLEAR CLEAR [place] Urinalysis Comments NOT REPORTED [place] Urine Hgb Negative NEGATIVE [place] Urobilinogen, Urine Normal Normal [place], [place] CBC auto differentialon 03-23 Basophils (Bld) [#/Vol] 0.04 10*3/uL [place], [place] Basophils/100 WBC (Bld) 0 % 0 - 2 % [place] Differential Type NOT REPORTED [place] Eosinophils (Bld) [#/Vol] 0.10 10*3/uL [place] Eosinophils/100 WBC (Bld) 1 % 1 - 4 % [place] Erythrocyte distribution width (RBC) [Ratio] 14.1 % 11.8 - 14.4 % [place] Hematocrit (Bld) [Volume fraction] 32.7 % Low 36.3 - 47.1 % [place] Hemoglobin (Bld) [Mass/Vol] 10.9 g/dL Low 11.9 - 15.1 g/dL [place] Immature granulocytes (Bld) [#/Vol] 1 % High 0 [place] Immature granulocytes (Bld) [#/Vol] 0.13 10*3/uL [place] Interpretation and review of laboratory results Abnormal [place] Lymphocytes (Bld) [#/Vol] 3.63 10*3/uL [place] Lymphocytes/100 WBC (Bld) 21 % Low 24 - 43 % [place] MCH (RBC) [Entitic mass] 31.1 pg 25.2 - 33.5 pg [place] MCHC (RBC) [Mass/Vol] 33.3 g/dL 28.4 - 34.8 g/dL [place] MCV (RBC) [Entitic vol] 93.4 fL 82.6 - 102.9 fL [place] Monocytes (Bld) [#/Vol] 1.04 10*3/uL [place] Monocytes/100 WBC (Bld) 6 % 3 - 12 % [place] Platelet mean volume (Bld) [Entitic vol] 10.3 fL 8.1 - 13.5 fL [place] Platelets (Bld) [#/Vol] 249 10*3/uL [place] Platelets (Bld) [#/Vol] NOT REPORTED [place] RBC (Bld) [#/Vol] 3.50 10*6/uL Low 3.95 - 5.1 1 m/uL [place] RBC morphology finding Nom (Bld) NOT REPORTED [place] Segmented neutrophils/100 WBC (Bld) 71 % High 36 - 65 % [place] Segs Absolute 12.11 [place] WBC (Bld) [#/Vol] 0.0 10*3/uL 0.0 per 10 0 WBC [place] WBC (Bld) [#/Vol] 17.1 10*3/uL [place] WBC Morphology NOT REPORTED [place] TSH with Reflexon 04-03-2020 TSH Qn 0.97 m[IU]/L [place] Microscopic Urinalysison Amorphous, UA NOT REPORTED None [place], [place] Bacteria, UA TRACE Abnormal None [place] Casts UA 2 TO 5 COARSELY GRANULAR /LPF [place], [place] Casts UA HYALINE /LPF [place] Casts UA 0 TO 2 /LPF [place] Crystals, UA NOT REPORTED None /HPF [place] Epithelial Cells UA 10 TO 20 [place] Interpretation and review of laboratory results Abnormal [place] Mucus, UA TRACE Abnormal None [place] Other Observations UA NOT REPORTED NOT REQ. [place] RBC (U) [#/Vol] 0 TO 2 [place], [place] Renal Epithelial, UA NOT REPORTED 0 /HPF [place], [place] Trichomonas, UA NOT REPORTED None [place], [place] WBC, UA 5 TO 10 [place], [place] Yeast, UA NOT REPORTED None [place] - [place] Urinalysison 04-02-2020 Bilirubin Urine Negative NEGATIVE [place] Color, UA YELLOW YELLOW [place], [place] Glucose, Ur Negative NEGATIVE [place] Interpretation and review of laboratory results Abnormal [place] Ketones Ql (U) 1+ Abnormal NEGATIVE [place] Leukocyte esterase Test strip Ql (U) Negative NEGATIVE [place] Nitrite, Urine Negative NEGATIVE [place] pH, UA 6.0 [place], [place] Protein (U) [Mass/Vol] Negative NEGATIVE [place] Specific [place], UA 1.020 [place], [place] Turbidity UA CLEAR CLEAR [place] Urinalysis Comments NOT REPORTED [place] Urine Hgb Negative NEGATIVE [place] Urobilinogen, Urine Normal Normal [place], [place] Glucose, Whole Bloodon 03-29 Glucose [Mass/Vol] 110 mg/dL High 74 - 100 mg/dL [place] Interpretation and review of laboratory results Abnormal [place] Microscopic Urinalysison Amorphous, UA NOT REPORTED None [place], [place] Bacteria, UA 1+ Abnormal None [place], [place] Casts UA NOT REPORTED /LPF [place] Crystals, UA NOT REPORTED None /HPF [place] Epithelial Cells UA 0 TO 2 [place] Interpretation and review of laboratory results Abnormal [place] Mucus, UA 2+ Abnormal None [place] Other Observations UA NOT REPORTED NOT REQ. [place] RBC (U) [#/Vol] 0 TO 2 [place] Renal Epithelial, UA NOT REPORTED 0 /HPF [place] Trichomonas, UA NOT REPORTED None [facility] [place] WBC, UA 0 TO 2 [place], [place] Yeast, UA NOT REPORTED None [place] - [place] Urinalysison 03-29-2020 Bilirubin Urine Negative NEGATIVE [place] Color, UA YELLOW YELLOW [place], [place] Glucose, Ur Negative NEGATIVE [place] Interpretation and review of laboratory results Abnormal [place] Ketones Ql (U) 4+ Abnormal NEGATIVE [place] Leukocyte esterase Test strip Ql (U) Negative NEGATIVE [place] Nitrite, Urine Negative NEGATIVE [place] pH, UA 6.5 [place] Protein (U) [Mass/Vol] Negative NEGATIVE [place] Specific [place], UA 1.020 [place], [place] Turbidity UA CLEAR CLEAR [place] Urinalysis Comments NOT REPORTED [place] Urine Hgb Negative NEGATIVE [place] Urobilinogen, Urine Normal Normal [place], [place] CBCon 02-26-2020 Erythrocyte distribution width (RBC) [Ratio] 13.7 % 11.8 - 14.4 % [place] Hematocrit (Bld) [Volume fraction] 32.9 % Low 36.3 - 47.1 % [place] Hemoglobin (Bld) [Mass/Vol] 11.1 g/dL Low 11.9 - 15.1 g/dL [place] Interpretation and review of laboratory results Abnormal [place] MCH (RBC) [Entitic mass] 31.6 pg 25.2 - 33.5 pg [place] MCHC (RBC) [Mass/Vol] 33.7 g/dL 28.4 - 34.8 g/dL [place] MCV (RBC) [Entitic vol] 93.7 fL 82.6 - 102.9 fL [place] Platelet mean volume (Bld) [Entitic vol] 10.6 fL 8.1 - 13.5 fL [place], [place] Platelets (Bld) [#/Vol] 247 10*3/uL [place] RBC (Bld) [#/Vol] 3.51 10*6/uL Low 3.95 - 5.1 1 m/uL [place] WBC (Bld) [#/Vol] 13.7 10*3/uL [place] WBC (Bld) [#/Vol] 0.0 10*3/uL 0.0 per 10 0 WBC [place], [place] Comprehensive metabolic pane mando 02-26-2020 Albumin [Mass/Vol] 3.4 g/dL Low 3.5 - 5.2 g/dL [place] Albumin/Globulin [Mass ratio] 1.1 {ratio} [place] ALP [Catalytic activity/Vol] 69 U/L 35 - 104 U/L [place] ALT [Catalytic activity/Vol] 8 U/L 5 - 33 U/L [place] Anion gap [Moles/Vol] 12 mmol/L 9 - 17 mmol/L [place] AST [Catalytic activity/Vol] 12 U/L <32 [place] Bilirubin Ql (U) 0.22 mg/dL Low 0.3 - 1.2 mg/dL [place], [place] Bun/Cre Ratio 9 [place] Calcium [Mass/Vol] 8.9 mg/dL 8.6 - 10. 4 mg/dL [place] Chloride [Moles/Vol] 104 mmol/L 98 - 10 7 mmol/L [place] CO2 [Moles/Vol] 21 mmol/L 20 - 31 mmol/L [place] Creatinine [Mass/Vol] 0.53 mg/dL 0.5 - 0.9 mg/dL [place] GFR >60 >60 mL/min [place] GFR Non- >60 >60 mL/min [place] Glucose [Mass/Vol] 110 mg/dL High 70 - 99 mg/dL [place] Interpretation and review of laboratory results Abnormal [place] Potassium [Moles/Vol] 3.7 mmol/L 3.7 - 5.3 mmol/L [place] Protein [Mass/Vol] 6.4 g/dL 6.4 - 8.3 g/dL [place], [place] Sodium [Moles/Vol] 137 mmol/L 135 - 144 mmol/L [place] Urea nitrogen [Mass/Vol] 5 mg/dL Low 6 - 20 mg/dL [place] Metabolic Panelon 02-26-2020 GFR/1.73 sq M predicted among non-blacks MDRD (S/P/Bld) [Vol rate/Area] [place] Comment on above: Average GFR for 20-2 9 years old: 116 mL/min/1.73sq m Chronic Kidney Disease: <60 mL/min/1.73sq m Kidney failure: <15 mL/min/1.73sq m eGFR calculated using average adult body mass. Additional eGFR calculator available at: http://www.[employer]/multiple_crcl_2012.htm Stage 1: Some kidney damage normal GFR Stage 2: Mild kidney damage GFR 60-89 Stage 3: Moderate kidney damage GFR 30-59 Stage 4: Severe kidney damage GFR 15-29 Stage 5: Severe kidney damage GFR <15 ESRD - chronic treatment by dialysis or transplant Urinalysison 02-26-2020 Bilirubin Urine Negative NEGATIVE [place] Color, UA YELLOW YELLOW [place], [place] Glucose, Ur Negative NEGATIVE [place] Ketones Ql (U) Negative NEGATIVE [place] Leukocyte esterase Test strip Ql (U) Negative NEGATIVE [place] Nitrite, Urine Negative NEGATIVE [place] pH, UA 7.0 [place] Protein (U) [Mass/Vol] Negative NEGATIVE [place] Specific [place], UA 1.020 [place], [place] Turbidity UA CLEAR CLEAR [place] Urinalysis Comments NOT REPORTED [place] Urine Hgb Negative NEGATIVE [place] Urobilinogen, Urine Normal Normal [place] US GALLBLADDER RUQon 020 Status post cholecystectomy. No evidence for biliary duct dilatation. No abnormal fluid collections or ascites. [place] EXAMINATION: RIGHT UPPER QUADRANT ULTRASOUND 02/02/2020 8:36 am COMPARISON: None. HISTORY: ORDERING SYSTEM PROVIDED HISTORY: RUQ pain FINDINGS: LIVER: The liver demonstrates normal echogenicity without evidence of intrahepatic biliary ductal dilatation. The liver is normal in size measuring 16.9 cm. Portal vein is patent and demonstrates normal hepatopetal flow. BILIARY SYSTEM: Status post cholecystectomy. No abnormal fluid collections are identified. Common bile duct is normal in caliber measuring 3.3 mm. RIGHT KIDNEY: The right kidney is grossly unremarkable without evidence of hydronephrosis. Right kidney measures 12.4 cm in length. PANCREAS: Visualized portions of the pancreas are unremarkable. OTHER: The proximal aorta was well visualized and appears normal. The mid and distal aorta were not visualized. Iliac arteries are also not visualized. IVC is patent. No ascites identified. Patient is and heart rate was measured at 149 beats per minute. Please note that this study was not performed to evaluate the fetus. [place], [place], Mhpn Incoming Radiant Results From [facility]/[employer] - 02/02/2020 9:15 AM EDT EXAMINATION: RIGHT UPPER QUADRANT ULTRASOUND 02/02/2020 8:36 am COMPARISON: None. HISTORY: ORDERING SYSTEM PROVIDED HISTORY: RUQ pain FINDINGS: LIVER: The liver demonstrates normal echogenicity without evidence of intrahepatic biliary ductal dilatation. The liver is normal in size measuring 16.9 cm. Portal vein is patent and demonstrates normal hepatopetal flow. BILIARY SYSTEM: Status post cholecystectomy. No abnormal fluid collections are identified. Common bile duct is normal in caliber measuring 3.3 mm. RIGHT KIDNEY: The right kidney is grossly unremarkable without evidence of hydronephrosis. Right kidney measures 12.4 cm in length. PANCREAS: Visualized portions of the pancreas are unremarkable. OTHER: The proximal aorta was well visualized and appears normal. The mid and distal aorta were not visualized. Iliac arteries are also not visualized. IVC is patent. No ascites identified. Patient is and heart rate was measured at 149 beats per minute. Please note that this study was not performed to evaluate the fetus. IMPRESSION: Status post cholecystectomy. No evidence for biliary duct dilatation. No abnormal fluid collections or ascites. [place] Basic Metabolic Panel w/ Ref kendell to MGon 02-01-2020 Anion gap [Moles/Vol] 14 mmol/L 9 - 17 mmol/L [place] Bun/Cre Ratio 10 [place] Calcium [Mass/Vol] 9.3 mg/dL 8.6 - 10. 4 mg/dL [place] Chloride [Moles/Vol] 102 mmol/L 98 - 10 7 mmol/L [place] CO2 [Moles/Vol] 20 mmol/L 20 - 31 mmol/L [place] Creatinine [Mass/Vol] 0.49 mg/dL Low 0.5 - 0.9 mg/dL [place] GFR >60 >60 mL/min [place] GFR Non- >60 >60 mL/min [place] Glucose [Mass/Vol] 152 mg/dL High 70 - 99 mg/dL [place] Interpretation and review of laboratory results Abnormal [place] Potassium [Moles/Vol] 3.5 mmol/L Low 3.7 - 5.3 mmol/L [place] Sodium [Moles/Vol] 136 mmol/L 135 - 144 mmol/L [place] Urea nitrogen [Mass/Vol] 5 mg/dL Low 6 - 20 mg/dL [place] CBC Auto Differentialon 01-21 Basophils (Bld) [#/Vol] 0.03 10*3/uL [place] Basophils/100 WBC (Bld) 0 % 0 - 2 % [place] Differential Type NOT REPORTED [place] Eosinophils (Bld) [#/Vol] 0.08 10*3/uL [place] Eosinophils/100 WBC (Bld) 1 % 1 - 4 % [place] Erythrocyte distribution width (RBC) [Ratio] 13.7 % 11.8 - 14.4 % [place] Hematocrit (Bld) [Volume fraction] 34.9 % Low 36.3 - 47.1 % [place] Hemoglobin (Bld) [Mass/Vol] 11.8 g/dL Low 11.9 - 15.1 g/dL [place] Immature granulocytes (Bld) [#/Vol] 0.09 10*3/uL [place] Immature granulocytes (Bld) [#/Vol] 1 % High 0 [place] Interpretation and review of laboratory results Abnormal [place] Lymphocytes (Bld) [#/Vol] 2.78 10*3/uL [place] Lymphocytes/100 WBC (Bld) 18 % Low 24 - 43 % [place] MCH (RBC) [Entitic mass] 31.4 pg 25.2 - 33.5 pg [place] MCHC (RBC) [Mass/Vol] 33.8 g/dL 28.4 - 34.8 g/dL [place] MCV (RBC) [Entitic vol] 92.8 fL 82.6 - 102.9 fL [place] Monocytes (Bld) [#/Vol] 0.65 10*3/uL [place] Monocytes/100 WBC (Bld) 4 % 3 - 12 % [place] Platelet mean volume (Bld) [Entitic vol] 10.5 fL 8.1 - 13.5 fL [place] Platelets (Bld) [#/Vol] NOT REPORTED [place] Platelets (Bld) [#/Vol] 273 10*3/uL [place] RBC (Bld) [#/Vol] 3.76 10*6/uL Low 3.95 - 5.1 1 m/uL [place] RBC morphology finding Nom (Bld) NOT REPORTED [place] Segmented neutrophils/100 WBC (Bld) 76 % High 36 - 65 % [place] Segs Absolute 11.78 High [place] WBC (Bld) [#/Vol] 15.4 10*3/uL [place] WBC (Bld) [#/Vol] 0.0 10*3/uL 0.0 per 10 0 WBC [place] WBC Morphology NOT REPORTED [place] Hepatic Function Panelon Albumin [Mass/Vol] 3.6 g/dL 3.5 - 5.2 g/dL [place] Albumin/Globulin [Mass ratio] 1.2 {ratio} [place] ALP [Catalytic activity/Vol] 70 U/L 35 - 104 U/L [place] ALT [Catalytic activity/Vol] 8 U/L 5 - 33 U/L [place] AST [Catalytic activity/Vol] 12 U/L <32 [place] Bilirubin Ql (U) 0.25 mg/dL Low 0.3 - 1.2 mg/dL [place] Bilirubin, Indirect CANNOT BE CALCULATED 0 - 1 mg/dL [place] Bilirubin.direct [Mass/Vol] mg/dL <0.31 mg/dL [place] Globulin (S) [Mass/Vol] NOT REPORTED 1.5 - 3.8 g/dL [place] Interpretation and review of laboratory results Abnormal [place] Protein [Mass/Vol] 6.7 g/dL 6.4 - 8.3 g/dL [place] Lipaseon 02-01-2020 Lipase [Catalytic activity/Vol] 51 U/L 13 - 60 U/L [place] Magnesiumon 02-01-2020 Magnesium [Mass/Vol] 1.8 mg/dL 1.6 - 2 .6 mg/dL [place] Metabolic Panelon 02-01-2020 GFR/1.73 sq M predicted among non-blacks MDRD (S/P/Bld) [Vol rate/Area] [place], [place] Comment on above: Stage 1: Some kidney damage normal GFR Stage 2: Mild kidney damage GFR 60-89 Stage 3: Moderate kidney damage GFR 30-59 Stage 4: Severe kidney damage GFR 15-29 Stage 5: Severe kidney damage GFR <15 ESRD - chronic treatment by dialysis or transplant Average GFR for 20-2 9 years old: 116 mL/min/1.73sq m Chronic Kidney Disease: <60 mL/min/1.73sq m Kidney failure: <15 mL/min/1.73sq m eGFR calculated using average adult body mass. Additional eGFR calculator available at: http://www.[employer]/multiple_crcl_2012.htm Urinalysis, reflex to micros copicon 02-01-2020 Bilirubin [facility] [place] [place] Color, UA YELLOW YELLOW [place] Glucose, Ur Negative NEGATIVE [place] Ketones Ql (U) Negative NEGATIVE [place] Leukocyte esterase Test strip Ql (U) Negative NEGATIVE [place] Nitrite, Urine Negative NEGATIVE [place] pH, UA 6.5 [place] Protein (U) [Mass/Vol] Negative NEGATIVE [place] Specific [place], UA 1.015 [place], [place] Turbidity UA CLEAR CLEAR [place] Urinalysis Comments NOT REPORTED [place] Urine Hgb Negative NEGATIVE [place] Urobilinogen, Urine Normal Normal [place] CBC Auto Differentialon 12-22 Basophils (Bld) [#/Vol] 10*3/uL [place] Basophils/100 WBC (Bld) 0 % 0 - 2 % [place] Differential Type NOT REPORTED [place] Eosinophils (Bld) [#/Vol] 0.08 10*3/uL [place] Eosinophils/100 WBC (Bld) 1 % 1 - 4 % [place] Erythrocyte distribution width (RBC) [Ratio] 13.6 % 11.8 - 14.4 % [place] Hematocrit (Bld) [Volume fraction] 36.2 % Low 36.3 - 47.1 % [place] Hemoglobin (Bld) [Mass/Vol] 12.3 g/dL 11.9 - 15.1 g/dL [place] Immature granulocytes (Bld) [#/Vol] 0.05 10*3/uL [place] Immature granulocytes (Bld) [#/Vol] 0 % 0 [place] Interpretation and review of laboratory results Abnormal [place] Lymphocytes (Bld) [#/Vol] 2.92 10*3/uL [place] Lymphocytes/100 WBC (Bld) 23 % Low 24 - 43 % [place] MCH (RBC) [Entitic mass] 31.2 pg 25.2 - 33.5 pg [place] MCHC (RBC) [Mass/Vol] 34.0 g/dL 28.4 - 34.8 g/dL [place] MCV (RBC) [Entitic vol] 91.9 fL 82.6 - 102.9 fL [place] Monocytes (Bld) [#/Vol] 0.63 10*3/uL [place] Monocytes/100 WBC (Bld) 5 % 3 - 12 % [place] Platelet mean volume (Bld) [Entitic vol] 10.4 fL 8.1 - 13.5 fL [place] Platelets (Bld) [#/Vol] NOT REPORTED [place] Platelets (Bld) [#/Vol] 286 10*3/uL [place] RBC (Bld) [#/Vol] 3.94 10*6/uL Low 3.95 - 5.1 1 m/uL [place] RBC morphology finding Nom (Bld) NOT REPORTED [place] Segmented neutrophils/100 WBC (Bld) 71 % High 36 - 65 % [place] Segs Absolute 8.96 High [place] WBC (Bld) [#/Vol] 12.7 10*3/uL [place] WBC (Bld) [#/Vol] 0.0 10*3/uL 0.0 per 10 0 WBC [place] WBC Morphology NOT REPORTED [place] Comprehensive Metabolic Pane l w/ Reflex to MGon 01-10-2020 Albumin [Mass/Vol] 3.6 g/dL 3.5 - 5.2 g/dL [place] Albumin/Globulin [Mass ratio] 1.1 {ratio} [place] ALP [Catalytic activity/Vol] 59 U/L 35 - 104 U/L [place] ALT [Catalytic activity/Vol] 13 U/L 5 - 33 U/L [place] Anion gap [Moles/Vol] 15 mmol/L 9 - 17 mmol/L [place] AST [Catalytic activity/Vol] 24 U/L <32 [place] Bilirubin Ql (U) 0.30 mg/dL 0.3 - 1.2 mg/dL [place] Bun/Cre Ratio 13 [place] Calcium [Mass/Vol] 9.4 mg/dL 8.6 - 10. 4 mg/dL [place] Chloride [Moles/Vol] 102 mmol/L 98 - 10 7 mmol/L [place] CO2 [Moles/Vol] 20 mmol/L 20 - 31 mmol/L [place] Creatinine [Mass/Vol] 0.48 mg/dL Low 0.5 - 0.9 mg/dL [place] GFR >60 >60 mL/min [place] GFR Non- >60 >60 mL/min [place] Glucose [Mass/Vol] 89 mg/dL 70 - 99 mg/dL [place] Interpretation and review of laboratory results Abnormal [place] Potassium [Moles/Vol] 4.2 mmol/L 3.7 - 5.3 mmol/L [place] Protein [Mass/Vol] 7.0 g/dL 6.4 - 8.3 g/dL [place] Sodium [Moles/Vol] 137 mmol/L 135 - 144 mmol/L [place] Urea nitrogen [Mass/Vol] 6 mg/dL 6 - 20 mg/dL [place] Lipaseon 01-10-2020 Lipase [Catalytic activity/Vol] 51 U/L 13 - 60 U/L [place] Metabolic Panelon 01-10-2020 GFR/1.73 sq M predicted among non-blacks MDRD (S/P/Bld) [Vol rate/Area] [place], [place] Comment on above: Average GFR for 20-2 9 years old: 116 mL/min/1.73sq m Chronic Kidney Disease: <60 mL/min/1.73sq m Kidney failure: <15 mL/min/1.73sq m eGFR calculated using average adult body mass. Additional eGFR calculator available at: http://www.[employer]/multiple_crcl_2012.htm Stage 1: Some kidney damage normal GFR Stage 2: Mild kidney damage GFR 60-89 Stage 3: Moderate kidney damage GFR 30-59 Stage 4: Severe kidney damage GFR 15-29 Stage 5: Severe kidney damage GFR <15 ESRD - chronic treatment by dialysis or transplant Microscopic Urinalysison Amorphous, UA TRACE Abnormal None [place] Bacteria, UA TRACE Abnormal None [place] Casts UA NOT REPORTED /LPF [place] Crystals, UA NOT REPORTED None /HPF [place] Epithelial Cells UA 20 TO 50 [place] Interpretation and review of laboratory results Abnormal [place] Mucus, UA NOT REPORTED None [place] Other Observations UA NOT REPORTED NOT REQ. [place] RBC (U) [#/Vol] 0 TO 2 [place], [place] Renal Epithelial, UA NOT REPORTED 0 /HPF [place] Trichomonas, UA PRESENCE NOTED Abnormal [place] WBC, UA 5 TO 10 [place] Yeast, UA NOT REPORTED None [place] - [place] Urinalysis, reflex to micros copicon 01-10-2020 Bilirubin Urine Negative NEGATIVE [place], [place] Color, UA YELLOW YELLOW [place] Glucose, Ur Negative NEGATIVE [place] Interpretation and review of laboratory results Abnormal [place] Ketones Ql (U) Negative NEGATIVE [place] Leukocyte esterase Test strip Ql (U) TRACE Abnormal NEGATIVE [place] Nitrite, Urine Negative NEGATIVE [place] pH, UA 7.0 [place] Protein (U) [Mass/Vol] Negative NEGATIVE [place] Specific [place], UA 1.020 [place] Turbidity UA SLIGHTLY CLOUDY Abnormal [facility] [place] Urinalysis Comments NOT REPORTED [facility] [place] Urine Hgb Negative NEGATIVE [facility] [place] Urobilinogen, Urine Normal Normal [facility] [place] Echo 2D w doppler w color co mpleteon 12-30-2019 [facility] Transthoracic Echocardiography Report (TTE) Patient Name NATHAN Date of Study 12/30/2019 [place] Al Date of 1995 Gender Female Age 24 year(s) Race Room Number Height: 68 inch, 172.72 cm Corporate ID [id number] Weight: 252 pounds, 114.3 kg # Patient Acct [id number] BSA: 2.25 m^2 BMI: 38.32 # kg/m^2 MR # [id number] [employer]er Helper Darlene Werner Interpreting Physician Silvio Gr Fellow Referring Nurse Practitioner Interpreting Referring Physician Silvio Gr Type of Study TTE procedure:2D Echocardiogram, M-Mode, Doppler, Color Doppler. Procedure Date Date: 12/30/2019 Start: 11:59 AM Study Location: [facility] Indications:Tachyca rdia. History / Tech. Comments: Tachycardia PMHX: HTN Patient Status: Outpatient Height: 68 inches Weight: 252 pounds BSA: 2.25 m^2 BMI: 38.32 kg/m^2 BP: 150/78 mmHg CONCLUSIONS Summary Global left ventricular systolic function appears preserved with an estimated ejection fraction of >55%. The left ventricular cavity size is within normal limits and the left ventricular wall thickness is mildly increased. No definite specific wall motion abnormalities were identified. No clear evidence of diastolic dysfunction was seen. No previous studies were available for comparison. No significant cardiac cause of tachycardia was identified from this study. Signature FINDINGS Left Atrium Left atrium is normal in size. Left Ventricle Global left ventricular systolic function appears preserved with an estimated ejection fraction of >55%. The left ventricular cavity size is within normal limits and the left ventricular wall thickness is mildly increased. No definite specific wall motion abnormalities were identified. Right Atrium Right atrium is normal in size. Right Ventricle Normal right ventricular size and function. Mitral Valve Normal mitral valve structure and function. Aortic Valve Normal aortic valve structure and function without stenosis or regurgitation. Tricuspid Valve Normal tricuspid valve structure and function. Pulmonic Valve The pulmonic valve is normal in structure. Pericardial Effusion No significant pericardial effusion is seen. Miscellaneous Normal aortic root diameter. No clear evidence of diastolic dysfunction was seen. M-mode / 2D Measurements & Calculations: LVIDd:4.62 cm(3.7 - 5.6 cm) Diastolic Volume:98.93 ml LVIDs:3.47 cm(2.2 - 4.0 cm) Systolic Volume:41.87 ml IVSd:1.09 cm(0.6 - 1.1 cm) Aortic Root:3.04 cm(2.0 - 3.7 cm) LVPWd:1.15 cm(0.6 - 1.1 cm) LA Dimension: 3.84 cm(1.9 - 4.0 cm) Fractional Shortenin.89 % LA volume/Index: 28 ml /12m^2 Calculated LVEF (%): 57.68 % AV Cusp Separation: 1.86 cm Mitral: Aortic Valve Area (P1/2-Time): 3.04 cm^2 Peak Velocity: 0.89 m/s Peak E-Wave: 0.74 m/s Mean Velocity: 0.66 m/s Peak A-Wave: 0.87 m/s Peak Gradient: 3.18 mmHg E/A Ratio: 0.85 Mean Gradient: 1.89 mmHg Peak Gradient: 2.17 mmHg Acceleration Time: 82.88 msec P1/2t: 72.42 msec AV VTI: 16.65 cm Pulmonic: Acceleration Time: 77.35 msec Diastology / Tissue Doppler Lateral Wall E' velocity:0.21 m/s Lateral Wall E/E':3.45 [facility]- [place], [place] Peyman, pn Incoming Cardio Results From [facility]/Ge - 12/30/2019 5:53 PM EDT [facility] Transthoracic Echocardiography Report (TTE) Patient Name NATHAN Date of Study 12/30/2019 DOROTA Al Date of 1995 Gender Female Age 24 year(s) Race Room Number Height: 68 inch, 172.72 cm Corporate ID [id number] Weight: 252 pounds, 114.3 kg # Patient Acct [id number] BSA: 2.25 m^2 BMI: 38.32 # kg/m^2 MR # [id number] Mixer Helper Darlene Werner Interpreting Physician Silvio Gr Fellow Referring Nurse Practitioner Interpreting Referring Physician Silvio Gr Type of Study TTE procedure:2D Echocardiogram, M-Mode, Doppler, Color Doppler. Procedure Date Date: 12/30/2019 Start: 11:59 AM Study Location: [facility] Indications:Tachyca rdia. History / Tech. Comments: Tachycardia PMHX: HTN Patient Status: Outpatient Height: 68 inches Weight: 252 pounds BSA: 2.25 m^2 BMI: 38.32 kg/m^2 BP: 150/78 mmHg CONCLUSIONS Summary Global left ventricular systolic function appears preserved with an estimated ejection fraction of >55%. The left ventricular cavity size is within normal limits and the left ventricular wall thickness is mildly increased. No definite specific wall motion abnormalities were identified. No clear evidence of diastolic dysfunction was seen. No previous studies were available for comparison. No significant cardiac cause of tachycardia was identified from this study. Signature - - - - FINDINGS Left Atrium Left atrium is normal in size. Left Ventricle Global left ventricular systolic function appears preserved with an estimated ejection fraction of >55%. The left ventricular cavity size is within normal limits and the left ventricular wall thickness is mildly increased. No definite specific wall motion abnormalities were identified. Right Atrium Right atrium is normal in size. Right Ventricle Normal right ventricular size and function. Mitral Valve Normal mitral valve structure and function. Aortic Valve Normal aortic valve structure and function without stenosis or regurgitation. Tricuspid Valve Normal tricuspid valve structure and function. Pulmonic Valve The pulmonic valve is normal in structure. Pericardial Effusion No significant pericardial effusion is seen. Miscellaneous Normal aortic root diameter. No clear evidence of diastolic dysfunction was seen. M-mode / 2D Measurements & Calculations: LVIDd:4.62 cm(3.7 - 5.6 cm) Diastolic Volume:98.93 ml LVIDs:3.47 cm(2.2 - 4.0 cm) Systolic Volume:41.87 ml IVSd:1.09 cm(0.6 - 1.1 cm) Aortic Root:3.04 cm(2.0 - 3.7 cm) LVPWd:1.15 cm(0.6 - 1.1 cm) LA Dimension: 3.84 cm(1.9 - 4.0 cm) Fractional Shortenin.89 % LA volume/Index: 28 ml /12m^2 Calculated LVEF (%): 57.68 % AV Cusp Separation: 1.86 cm Mitral: Aortic Valve Area (P1/2-Time): 3.04 cm^2 Peak Velocity: 0.89 m/s Peak E-Wave: 0.74 m/s Mean Velocity: 0.66 m/s Peak A-Wave: 0.87 m/s Peak Gradient: 3.18 mmHg E/A Ratio: 0.85 Mean Gradient: 1.89 mmHg Peak Gradient: 2.17 mmHg Acceleration Time: 82.88 msec P1/2t: 72.42 msec AV VTI: 16.65 cm Pulmonic: Acceleration Time: 77.35 msec Diastology / Tissue Doppler Lateral Wall E' velocity:0.21 m/s Lateral Wall E/E':3.45 [place] BUNon 12-18-2019 Urea nitrogen [Mass/Vol] 6 mg/dL 6 - 20 mg/dL [place] Creatinine Clearanceon 12-17 Creatinine [Mass/Vol] 114.5 mg/dL 28 - 2 17 mg/dL [place] Creatinine [Mass/Vol] 0.49 mg/dL Low 0.5 - 0.9 mg/dL [place] Creatinine Clearance 234.3 [place] Interpretation and review of laboratory results Abnormal [place] Length Of Collection 24 h [place], [place] Patient Height 173 cm [place], [place] Volume 1725 mL [place] Creatinine, Serumon 12-18-19 20 Creatinine [Mass/Vol] 0.48 mg/dL Low 0.5 - 0.9 mg/dL [place] GFR >60 >60 mL/min [place] GFR Non- >60 >60 mL/min [place] Interpretation and review of laboratory results Abnormal [place] Creatinine, urine, timedon 0 12-18-2019 Creatinine Timed Ur NOT REPORTED mg/ X h [place], [place] Creatinine, 24H Ur 1997 High [place], [place] Creatinine, Ur 115.8 mg/dL [place], [place] Metabolic Panelon 12-18-2019 GFR/1.73 sq M predicted among non-blacks MDRD (S/P/Bld) [Vol rate/Area] [place], [place] Comment on above: Average GFR for 20-2 9 years old: 116 mL/min/1.73sq m Chronic Kidney Disease: <60 mL/min/1.73sq m Kidney failure: <15 mL/min/1.73sq m eGFR calculated using average adult body mass. Additional eGFR calculator available at: http://www.Kitenga/multiple_crcl_2012.htm Stage 1: Some kidney damage normal GFR Stage 2: Mild kidney damage GFR 60-89 Stage 3: Moderate kidney damage GFR 30-59 Stage 4: Severe kidney damage GFR 15-29 Stage 5: Severe kidney damage GFR <15 ESRD - chronic treatment by dialysis or transplant Otheron 12-18-2019 Hours Collected 24 h [place] Interpretation and review of laboratory results Abnormal [place], [place] Volume 1725 mL [place] Protein, urine, timedon 11-22 Protein (U) [Mass/Vol] NOT REPORTED mg/X h [place] Protein (U) [Mass/Vol] 30 mg/dL [place], [place] Protein (U) [Mass/Vol] 518 mg/dL High <151 mg/24 h [place] ABO, External Resulton 11-22 ABO, External Result B [place] C. Trachomatis, External Res ulton 11-23-2019 C. Trachomatis, External Result Negative [place] HIV, External Resulton 11-22 HIV, External Result non reactive [place] Hepatitis B, External Result on 11-23-2019 Hep B, External Result Negative [place] Hepatitis C Antibody, Aquatic Instructor al Resulton 11-23-2019 Hepatitis C Antibody, External Result non reactive [place] N. Gonorrhoeae, External Res ulton 11-23-2019 N. Gonorrhoeae, External Result Negative [place] Otheron 11-23-2019 Labs verified by Macy Casas RN and Kael Haas RN [place] RPR, External Labon 11-23-19 20 RPR, External Result non reactive [place] Rh Factor, External Resulton 11-23-2019 Rh Factor, External Result Positive [place] Rubella Titer, External Resu lton 11-23-2019 Rubella Titer, External Result NONIMMUNE [place] CBC Auto DifferentialOrdered By: Rod Conte on 09-24-2019 Absolute Eos # 0.14 [facility] Work Phone: Absolute Immature Granulocyte 0.03 [facility] Work Phone: Absolute Lymph # 3.05 [facility] Work Phone: Absolute Tillman [facility] 0.61 [facility] Work Phone: Basophils (Bld) [#/Vol] 0.05 10*3/uL [facility] Work Phone: Basophils/100 WBC (Bld) 0 % 0 - 2 % [facility] Work Phone: Differential Type NOT REPORTED [facility] haku Phone: Eosinophils/100 WBC (Bld) 1 % 1 - 4 % [facility] [employer] Work Phone: Erythrocyte distribution width (RBC) [Ratio] 12.8 % 11.8 - 14.4 % [employer] Phone: Hematocrit (Bld) [Volume fraction] 44.3 % 36.3 - 47.1 % [facility] Phone: Hemoglobin (Bld) [Mass/Vol] 14.7 g/dL 11.9 - 15.1 g/dL [employer] Phone: Immature granulocytes/100 WBC (Bld) 0 % 0 [employer] Phone: Interpretation and review of laboratory results Abnormal [employer] Phone: Lymphocytes/100 WBC (Bld) 26 % 24 - 43 % [employer] Phone: MCH (RBC) [Entitic mass] 30.0 pg 25.2 - 33.5 pg [employer] Phone: MCHC (RBC) [Mass/Vol] 33.2 g/dL 28.4 - 34.8 g/dL [employer] Phone: MCV (RBC) [Entitic vol] 90.4 fL 82.6 - 102.9 fL [employer] Phone: Monocytes/100 WBC (Bld) 5 % 3 - 12 % [facility] Phone: NRBC Automated 0.0 0.0 per 100 WBC [employer] Phone: Platelet Estimate NOT REPORTED [employer] Phone: Platelet mean volume (Bld) [Entitic vol] 10.6 fL 8.1 - 13.5 fL [employer] Phone: Platelets (Bld) [#/Vol] 314 10*3/uL [employer] Phone: RBC (Bld) [#/Vol] 4.90 10*6/uL 3.95 - 5.1 1 m/uL [employer] Phone: RBC morphology finding Nom (Bld) NOT REPORTED [employer] Phone: Segmented neutrophils/100 WBC (Bld) 68 % High 36 - 65 % [employer] Phone: Segs Absolute 7.82 [employer] Work Phone: WBC (Bld) [#/Vol] 11.7 10*3/uL High [employer] Phone: WBC Morphology NOT REPORTED [employer] [facility] Work Phone: Comprehensive Metabolic Pane l w/ Reflex to MGOrdered By: Rod Conte on 09-24-2019 Albumin [Mass/Vol] 4.3 g/dL 3.5 - 5.2 g/dL [employer] Phone: Albumin/Globulin [Mass ratio] 1.3 {ratio} [employer] Phone: ALP [Catalytic activity/Vol] 92 U/L 35 - 104 U/L [employer] Phone: ALT [Catalytic activity/Vol] 32 U/L 5 - 33 U/L [employer] Phone: Anion gap [Moles/Vol] 14 mmol/L 9 - 17 mmol/L [employer] Phone: AST [Catalytic activity/Vol] 28 U/L <32 [employer] Phone: Bilirubin [Mass/Vol] 0.40 mg/dL 0.3 - 1 .2 mg/dL [employer] Phone: Bun/Cre Ratio 14 [employer] Work Phone: Calcium [Mass/Vol] 9.8 mg/dL 8.6 - 10. 4 mg/dL [employer] Phone: Chloride [Moles/Vol] 100 mmol/L 98 - 10 7 mmol/L [employer] Phone: CO2 [Moles/Vol] 24 mmol/L 20 - 31 mmol/L [employer] Phone: Creatinine [Mass/Vol] 0.63 mg/dL 0.5 - 0.9 mg/dL [employer] Phone: GFR >60 >60 mL/min [employer] Phone: GFR Comment [employer] Phone: Comment on above: Average GFR for 20-2 9 years old: 116 mL/min/1.73sq m Chronic Kidney Disease: <60 mL/min/1.73sq m Kidney failure: <15 mL/min/1.73sq m eGFR calculated using average adult body mass. Additional eGFR calculator available at: http://www.Kitenga/CE Interactive_crcl_2012.htm GFR Non- >60 >60 mL/min [employer] Phone: GFR Staging [employer] Phone: Comment on above: Stage 1: Some kidney damage normal GFR Stage 2: Mild kidney damage GFR 60-89 Stage 3: Moderate kidney damage GFR 30-59 Stage 4: Severe kidney damage GFR 15-29 Stage 5: Severe kidney damage GFR <15 ESRD - chronic treatment by dialysis or transplant Glucose [Mass/Vol] 206 mg/dL High 70 - 99 mg/dL [employer] Phone: Interpretation and review of laboratory results Abnormal [employer] Phone: Potassium [Moles/Vol] 4.0 mmol/L 3.7 - 5.3 mmol/L [employer] Phone: Protein [Mass/Vol] 7.7 g/dL 6.4 - 8.3 g/dL [employer] Phone: Sodium [Moles/Vol] 138 mmol/L 135 - 144 mmol/L [employer] Phone: Urea nitrogen [Mass/Vol] 9 mg/dL 6 - 20 mg/dL [employer] Phone: HCG Qualitative, SerumOrdere d By: Rod Conte on 09-24-2019 hCG Qual Positive Abnormal NEGATIVE [employer] Phone: Comment on above: If HCG results do not concur with clinical observations, additional testing to confirm result is recommended. This test is not labeled for use as a tumor marker. [employer] has confirmed the use of plasma for this test. This has not been cleared or approved by the U.S. Food and Drug Administration. The FDA has determined that such clearance is not necessary. Interpretation and review of laboratory results Abnormal [employer] Phone: LipaseOrdered By: Rod huber on 09-24-2019 Lipase [Catalytic activity/Vol] 49 U/L 13 - 60 U/L [employer] Phone: Rapid influenza A/B antigens Ordered By: Rod Conte on 09-24-2019 Direct Exam Presumptive negative for the presence of Influenza A and Influenza B antigen. PCR confirmation of negative results is recommended, since the antigen present in the specimen may be below the detection limit of the test. [employer] Phone: Special Requests NOT REPORTED [employer] Phone: Specimen Description .NASOPHARYNGEAL SWAB [employer] Phone: XR CHEST STANDARD (2 VW)Orde red By: Rod Conte on 09-24-2019 Increased density left retrocardiac region likely a confluence of vascular shadows or atelectasis There is no consolidation to suggest pneumonia. [employer] Phone: EXAMINATION: TWO XRAY VIEWS OF THE CHEST 09/24/2019 8:33 pm COMPARISON: December 04, 2018 HISTORY: ORDERING SYSTEM PROVIDED HISTORY: cough TECHNOLOGIST PROVIDED HISTORY: cough FINDINGS: There is a small amount of increased density in the left retrocardiac region. There is no corresponding opacity on the lateral view. There is no consolidation otherwise. There is no pneumothorax. [employer] Phone: Peyman, Mhpn Incoming Radiant Results From [facility]/[employer] - 09/24/2019 8:46 PM EST EXAMINATION: TWO XRAY VIEWS OF THE CHEST 09/24/2019 8:33 pm COMPARISON: December 04, 2018 HISTORY: ORDERING SYSTEM PROVIDED HISTORY: cough TECHNOLOGIST PROVIDED HISTORY: cough FINDINGS: There is a small amount of increased density in the left retrocardiac region. There is no corresponding opacity on the lateral view. There is no consolidation otherwise. There is no pneumothorax. IMPRESSION: Increased density left retrocardiac region likely a confluence of vascular shadows or atelectasis There is no consolidation to suggest pneumonia. [employer] Work Phone: CT ABDOMEN PELVIS W IV CONTR [place] 07-29-2019 The appendix is normal. A 2.8 cm right ovarian cyst is suspected. There is a history of PCOS. Diffuse fatty infiltration of the liver. RECOMMENDATIONS: 2.8 cm benign appearing ovarian cyst. No follow-up imaging is recommended. Reference: J Am Enrique Radiol 2013;10:675-681 [facility] [place] [place] Peyman, Britney Incoming Radiant Results From [facility]/[employer] - 07/29/2019 1:00 AM EST EXAMINATION: CT OF THE ABDOMEN AND PELVIS WITH CONTRAST 07/29/2019 12:19 am TECHNIQUE: CT of the abdomen and pelvis was performed with the administration of intravenous contrast. Multiplanar reformatted images are provided for review. Dose modulation, iterative reconstruction, and/or weight based adjustment of the mA/kV was utilized to reduce the radiation dose to as low as reasonably achievable. COMPARISON: None. HISTORY: ORDERING SYSTEM PROVIDED HISTORY: Right pelvic and RLQ abd pain at [place]. Hx of PCOS and large cysts as well, L oophorectomy. TECHNOLOGIST PROVIDED HISTORY: IV Only Contrast Right pelvic and RLQ abd pain at [place]. Hx of PCOS and large cysts as well, L oophorectomy. FINDINGS: Lower Chest: The lung bases are clear and the heart size is normal. Organs: Diffuse fatty infiltration of the liver. No focal liver lesion. The gallbladder is surgically absent. Bile ducts are not dilated. The spleen, pancreas, adrenal glands and kidneys are normal. GI/Bowel: The appendix is normal. Unopacified bowel loops are unremarkable. No evidence of bowel obstruction. Pelvis: A 2.8 cm right ovarian cyst is suspected. The uterus and left ovary are unremarkable. Urinary bladder is unremarkable. Peritoneum/Retroper itoneum: There is no adenopathy, free air or free fluid. Bones/Soft Tissues: No acute bone finding. Obesity. IMPRESSION: The appendix is normal. A 2.8 cm right ovarian cyst is suspected. There is a history of PCOS. Diffuse fatty infiltration of the liver. RECOMMENDATIONS: 2.8 cm benign appearing ovarian cyst. No follow-up imaging is recommended. Reference: J Am Enrique Radiol 2013;10:[id number] [place] EXAMINATION: CT OF THE ABDOMEN AND PELVIS WITH CONTRAST 07/29/2019 12:19 am TECHNIQUE: CT of the abdomen and pelvis was performed with the administration of intravenous contrast. Multiplanar reformatted images are provided for review. Dose modulation, iterative reconstruction, and/or weight based adjustment of the mA/kV was utilized to reduce the radiation dose to as low as reasonably achievable. COMPARISON: None. HISTORY: ORDERING SYSTEM PROVIDED HISTORY: Right pelvic and RLQ abd pain at [place]. Hx of PCOS and large cysts as well, L oophorectomy. TECHNOLOGIST PROVIDED HISTORY: IV Only Contrast Right pelvic and RLQ abd pain at [place]. Hx of PCOS and large cysts as well, L oophorectomy. FINDINGS: Lower Chest: The lung bases are clear and the heart size is normal. Organs: Diffuse fatty infiltration of the liver. No focal liver lesion. The gallbladder is surgically absent. Bile ducts are not dilated. The spleen, pancreas, adrenal glands and kidneys are normal. GI/Bowel: The appendix is normal. Unopacified bowel loops are unremarkable. No evidence of bowel obstruction. Pelvis: A 2.8 cm right ovarian cyst is suspected. The uterus and left ovary are unremarkable. Urinary bladder is unremarkable. Peritoneum/Retroper itoneum: There is no adenopathy, free air or free fluid. Bones/Soft Tissues: No acute bone finding. Obesity. [place] Comprehensive Metabolic Pane l w/ Reflex to MGon 07-29-2019 Albumin [Mass/Vol] 4.2 g/dL 3.5 - 5.2 g/dL [place] Albumin/Globulin [Mass ratio] 1.1 {ratio} [place] ALP [Catalytic activity/Vol] 88 U/L 35 - 104 U/L [place] ALT [Catalytic activity/Vol] 35 U/L High 5 - 33 U/L [place] Anion gap [Moles/Vol] 14 mmol/L 9 - 17 mmol/L [place] AST [Catalytic activity/Vol] 38 U/L High <32 [place] Bilirubin Ql (U) 0.33 mg/dL 0.3 - 1.2 mg/dL [place] Bun/Cre Ratio 9 [place] Calcium [Mass/Vol] 9.5 mg/dL 8.6 - 10. 4 mg/dL [place] Chloride [Moles/Vol] 98 mmol/L 98 - 10 7 mmol/L [place] CO2 [Moles/Vol] 23 mmol/L 20 - 31 mmol/L [place] Creatinine [Mass/Vol] 0.74 mg/dL 0.5 - 0.9 mg/dL [place] GFR >60 >60 mL/min [place] GFR Non- >60 >60 mL/min [place] Glucose [Mass/Vol] 267 mg/dL High 70 - 99 mg/dL [place] Interpretation and review of laboratory results Abnormal [place] Potassium [Moles/Vol] 3.8 mmol/L 3.7 - 5.3 mmol/L [place] Protein [Mass/Vol] 7.9 g/dL 6.4 - 8.3 g/dL [place] Sodium [Moles/Vol] 135 mmol/L 135 - 144 mmol/L [place] Urea nitrogen [Mass/Vol] 7 mg/dL 6 - 20 mg/dL [place] Lactic Acidon 07-29-2019 Lactate [Moles/Vol] 2.2 mmol/L 0.5 - 2. 2 mmol/L [place] Lipaseon 07-29-2019 Lipase [Catalytic activity/Vol] 60 U/L 13 - 60 U/L [place] Metabolic Panelon 07-29-2019 GFR/1.73 sq M predicted among non-blacks MDRD (S/P/Bld) [Vol rate/Area] [place], [place] Comment on above: Average GFR for 20-2 9 years old: 116 mL/min/1.73sq m Chronic Kidney Disease: <60 mL/min/1.73sq m Kidney failure: <15 mL/min/1.73sq m eGFR calculated using average adult body mass. Additional eGFR calculator available at: http://www.Kitenga/multiple_crcl_2012.htm Stage 1: Some kidney damage normal GFR Stage 2: Mild kidney damage GFR 60-89 Stage 3: Moderate kidney damage GFR 30-59 Stage 4: Severe kidney damage GFR 15-29 Stage 5: Severe kidney damage GFR <15 ESRD - chronic treatment by dialysis or transplant APTTon 07-28-2019 aPTT Coag (Bld) [Time] 25.0 s [place] CBC Auto Differentialon Basophils (Bld) [#/Vol] 0.03 10*3/uL [place] Basophils/100 WBC (Bld) 0 % 0 - 2 % [place] Differential Type NOT REPORTED [place] Eosinophils (Bld) [#/Vol] 0.14 10*3/uL [place] Eosinophils/100 WBC (Bld) 1 % 1 - 4 % [place] Erythrocyte distribution width (RBC) [Ratio] 12.4 % 11.8 - 14.4 % [place] Hematocrit (Bld) [Volume fraction] 43.7 % 36.3 - 47.1 % [place] Hemoglobin (Bld) [Mass/Vol] 14.4 g/dL 11.9 - 15.1 g/dL [place] Immature granulocytes (Bld) [#/Vol] 0 % 0 [place] Immature granulocytes (Bld) [#/Vol] 0.04 10*3/uL [place] Lymphocytes (Bld) [#/Vol] 3.00 10*3/uL [place] Lymphocytes/100 WBC (Bld) 28 % 24 - 43 % [place] MCH (RBC) [Entitic mass] 29.9 pg 25.2 - 33.5 pg [place] MCHC (RBC) [Mass/Vol] 33.0 g/dL 28.4 - 34.8 g/dL [place] MCV (RBC) [Entitic vol] 90.9 fL 82.6 - 102.9 fL [place] Monocytes (Bld) [#/Vol] 0.58 10*3/uL [place] Monocytes/100 WBC (Bld) 5 % 3 - 12 % [place] Platelet mean volume (Bld) [Entitic vol] 10.8 fL 8.1 - 13.5 fL [place] Platelets (Bld) [#/Vol] NOT REPORTED [place] Platelets (Bld) [#/Vol] 291 10*3/uL [place] RBC (Bld) [#/Vol] 4.81 10*6/uL 3.95 - 5.1 1 m/uL [place] RBC morphology finding Nom (Bld) NOT REPORTED [place] Segmented neutrophils/100 WBC (Bld) 65 % 36 - 65 % [place] Segs Absolute 6.97 [place] WBC (Bld) [#/Vol] 0.0 10*3/uL 0.0 per 10 0 WBC [place] WBC (Bld) [#/Vol] 10.8 10*3/uL [place] WBC Morphology NOT REPORTED [place] HCG Qualitative, Serumon hCG Qual Negative NEGATIVE [place] Comment on above: Specimens with hCG l evels near the threshold of the test (25 mIU/mL) may give a negative or indeterminate result. In such cases, another test should be performed with a new specimen in 48-72 hours. If early is suspected clinically in this setting, correlation with quantitative serum b-hCG level is suggested. [facility] has confirmed the use of plasma for this test. This has not been cleared or approved by the U.S. Food and Drug Administration. The FDA has determined that such clearance is not necessary. Microscopic Urinalysison Amorphous, UA NOT REPORTED None [place], [place] Bacteria, UA NOT REPORTED None [place], [place] Casts UA NOT REPORTED /LPF [place] Crystals UA NOT REPORTED None /HPF [place] Epithelial Cells UA 2 TO 5 [place] Interpretation and review of laboratory results Abnormal [place] Mucus, UA 2+ Abnormal None [place] Other Observations UA NOT REPORTED NOT REQ. [place] RBC (U) [#/Vol] 0 TO 2 [place] Renal Epithelial, Urine NOT REPORTED 0 /HPF [place] Trichomonas, UA NOT REPORTED None [facility] [place] WBC, UA 2 TO 5 [place] Yeast, UA NOT REPORTED None [place] - [place] Protime-INRon 07-28-2019 INR Coag (PPP) [Relative time] 1.0 {INR} [place] PT Coag (PPP) [Time] 10.1 s [place] Urinalysis, reflex to micros copicon 07-28-2019 Bilirubin Urine Negative NEGATIVE [place] Color, UA YELLOW YELLOW [place] Glucose, Ur TRACE Abnormal NEGATIVE [place] Interpretation and review of laboratory results Abnormal [place] Ketones Ql (U) Negative NEGATIVE [place] Leukocyte esterase Test strip Ql (U) Negative NEGATIVE [place] Nitrite, Urine Negative NEGATIVE [place] pH, UA 5.5 [place] Protein (U) [Mass/Vol] TRACE Abnormal NEGATIVE [place] Specific [place], UA >1.030 High [place] Turbidity UA CLEAR CLEAR [place] Urinalysis Comments NOT REPORTED [place] Urine Hgb Negative NEGATIVE [place] Urobilinogen, Urine Normal Normal [place] CBC Auto Differentialon Basophils (Bld) [#/Vol] 0.03 10*3/uL [place] Basophils/100 WBC (Bld) 0 % 0 - 2 % [place] Differential Type NOT REPORTED [place] Eosinophils (Bld) [#/Vol] 0.18 10*3/uL [place] Eosinophils/100 WBC (Bld) 2 % 1 - 4 % [place] Erythrocyte distribution width (RBC) [Ratio] 12.9 % 11.8 - 14.4 % [place] Hematocrit (Bld) [Volume fraction] 40.8 % 36.3 - 47.1 % [place] Hemoglobin (Bld) [Mass/Vol] 13.5 g/dL 11.9 - 15.1 g/dL [place] Immature granulocytes (Bld) [#/Vol] 1 % High 0 [place] Immature granulocytes (Bld) [#/Vol] 0.06 10*3/uL [place] Interpretation and review of laboratory results Abnormal [place] Lymphocytes (Bld) [#/Vol] 3.21 10*3/uL [place] Lymphocytes/100 WBC (Bld) 35 % 24 - 43 % [place] MCH (RBC) [Entitic mass] 30.1 pg 25.2 - 33.5 pg [place] MCHC (RBC) [Mass/Vol] 33.1 g/dL 28.4 - 34.8 g/dL [place] MCV (RBC) [Entitic vol] 90.9 fL 82.6 - 102.9 fL [place] Monocytes (Bld) [#/Vol] 0.47 10*3/uL [place] Monocytes/100 WBC (Bld) 5 % 3 - 12 % [place] Platelet mean volume (Bld) [Entitic vol] 10.4 fL 8.1 - 13.5 fL [place] Platelets (Bld) [#/Vol] NOT REPORTED [place] Platelets (Bld) [#/Vol] 337 10*3/uL [place] RBC (Bld) [#/Vol] 4.49 10*6/uL 3.95 - 5.1 1 m/uL [place] RBC morphology finding Nom (Bld) NOT REPORTED [place] Segmented neutrophils/100 WBC (Bld) 57 % 36 - 65 % [place] Segs Absolute 5.25 [place] WBC (Bld) [#/Vol] 9.2 10*3/uL [place] WBC (Bld) [#/Vol] 0.0 10*3/uL 0.0 per 10 0 WBC [place] WBC Morphology NOT REPORTED [place] Comprehensive Metabolic Pane l w/ Reflex to MGon 05-25-2019 Albumin [Mass/Vol] 4 g/dL 3.5 - 5.2 g/dL [place] Albumin/Globulin [Mass ratio] 1.1 {ratio} [place] ALP [Catalytic activity/Vol] 84 U/L 35 - 104 U/L [place] ALT [Catalytic activity/Vol] 34 U/L High 5 - 33 U/L [place] Anion gap [Moles/Vol] 14 mmol/L 9 - 17 mmol/L [place] AST [Catalytic activity/Vol] 35 U/L High <32 [place] Bilirubin Ql (U) 0.26 mg/dL Low 0.3 - 1.2 mg/dL [place] Bun/Cre Ratio 14 [place] Calcium [Mass/Vol] 9.7 mg/dL 8.6 - 10. 4 mg/dL [place] Chloride [Moles/Vol] 103 mmol/L 98 - 10 7 mmol/L [place] CO2 [Moles/Vol] 22 mmol/L 20 - 31 mmol/L [place] Creatinine [Mass/Vol] 0.7 mg/dL 0.5 - 0.9 mg/dL [place] GFR >60 >60 mL/min [place] GFR Non- >60 >60 mL/min [place] Glucose [Mass/Vol] 313 mg/dL High 70 - 99 mg/dL [place] Potassium [Moles/Vol] 4.1 mmol/L 3.7 - 5.3 mmol/L [place] Protein [Mass/Vol] 7.6 g/dL 6.4 - 8.3 g/dL [place] Sodium [Moles/Vol] 139 mmol/L 135 - 144 mmol/L [place] Urea nitrogen [Mass/Vol] 10 mg/dL 6 - 20 mg/dL [place] Lipaseon 05-25-2019 Lipase [Catalytic activity/Vol] 75 U/L High 13 - 60 U/L [place] Metabolic Panelon 05-25-2019 GFR/1.73 sq M predicted among non-blacks MDRD (S/P/Bld) [Vol rate/Area] [place] Comment on above: Average GFR for 20-2 9 years old: 116 mL/min/1.73sq m Chronic Kidney Disease: <60 mL/min/1.73sq m Kidney failure: <15 mL/min/1.73sq m eGFR calculated using average adult body mass. Additional eGFR calculator available at: http://www.[employer]/multiple_crcl_2012.htm Stage 1: Some kidney damage normal GFR Stage 2: Mild kidney damage GFR 60-89 Stage 3: Moderate kidney damage GFR 30-59 Stage 4: Severe kidney damage GFR 15-29 Stage 5: Severe kidney damage GFR <15 ESRD - chronic treatment by dialysis or transplant Microscopic Urinalysison Amorphous, UA NOT REPORTED None [place], [place] Bacteria, UA NOT REPORTED None [place] Casts UA NOT REPORTED /LPF [place] Crystals UA NOT REPORTED None /HPF [place] Epithelial Cells UA 0 TO 2 [place] Mucus, UA NOT REPORTED None [place] Other Observations UA NOT REPORTED NOT REQ. [place] RBC (U) [#/Vol] 0 TO 2 [place] Renal Epithelial, Urine NOT REPORTED 0 /HPF [place] Trichomonas, UA NOT REPORTED None [facility] [place] WBC, UA 2 TO 5 [place] Yeast, UA NOT REPORTED None [place] - [place] Otheron 05-25-2019 Interpretation and review of laboratory results Abnormal [place] , Urineon 9 Beta HCG ( test) Ql (U) Negative NEGATIVE [place] Comment on above: Specimens with hCG l evels near the threshold of the test (25 mIU/mL) may give a negative or indeterminate result. In such cases, another test should be performed with a new specimen in 48-72 hours. If early is suspected clinically in this setting, correlation with quantitative serum b-hCG level is suggested. [facility] has confirmed the use of plasma for this test. This has not been cleared or approved by the U.S. Food and Drug Administration. The FDA has determined that such clearance is not necessary. Urinalysis, reflex to micros copicon 05-25-2019 Bilirubin Urine Negative NEGATIVE [place] Color, UA YELLOW YELLOW [place], [place] Glucose, Ur 2+ Abnormal NEGATIVE [place] Interpretation and review of laboratory results Abnormal [place] Ketones Ql (U) Negative NEGATIVE [place] Leukocyte esterase Test strip Ql (U) Negative NEGATIVE [place] Nitrite, Urine Negative NEGATIVE [place] pH, UA 6.0 [place] Protein (U) [Mass/Vol] TRACE Abnormal NEGATIVE [place], [place] Specific [place], UA 1.025 High [place], [place] Turbidity UA CLEAR CLEAR [place] Urinalysis Comments NOT REPORTED [place] Urine Hgb 3+ Abnormal NEGATIVE [place] Urobilinogen, Urine Normal Normal [place] VL DUP LOWER EXTREMITY VENOU S RIGHTon 05-19-2019 [facility] Vascular Lower Extremities DVT Study Procedure Patient Name NATHAN Date of Study 05/19/2019 DOR[place] Al Date of 1995 Gender Female Age 23 year(s) Race Room Number Corporate ID # [id number] Patient MR # [id number] 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 Yossi Schneider . Procedure Type of Study: Veins: Lower Extremities DVT Study, Venous Scan Lower Right. Patient Status:Out Patient. Technical Quality:Adequate visualization. Comments:INDICATION S: Right leg pain Conclusions Summary No evidence of superficial or deep venous thrombosis in the right lower extremity. Signature ------- ------- ------- ------- Findings: Right Impression: Left Impression: The common femoral, femoral, deep The common femoral vein was femoral, popliteal, tibials, peroneal, compressible and with normal and saphenous veins were evaluated. doppler responses. All veins were compressible with normal Prominent lymph nodes were doppler responses. visualized in the groin. Edema was noted in the ankle and calf. Prominent lymph nodes were visualized in the groin. Velocities are measured in cm/s ; Diameters are measured in cm Right Lower Extremities DVT Study Measurements Right 2D Measurements + + +-------- -------+ + !Location !Visualized!Roxanna sibility!Thrombosis ! + + +-------- -------+ + !Common Femoral !Yes !Yes !None ! + + +-------- -------+ + !Prox Femoral !Yes !Yes !None ! + + +-------- -------+ + !Mid Femoral !Yes !Yes !None ! + + +-------- -------+ + !Dist Femoral !Yes !Yes !None ! + + +-------- -------+ + !Deep Femoral !Yes !Yes !None ! + + +-------- -------+ + !Popliteal !Yes !Yes !None ! + + +-------- -------+ + !Sapheno Femoral Junction !Yes !Yes !None ! + + +-------- -------+ + !PTV !Yes !Yes !None ! + + +-------- -------+ + !Peroneal !Yes !Yes !None ! + + +-------- -------+ + !Gastroc !Yes !Yes !None ! + + +-------- -------+ + !GSV Thigh !Yes !Yes !None ! + + +-------- -------+ + !GSV Knee !Yes !Yes !None ! + + +-------- -------+ + !GSV Ankle !Yes !Yes !None ! + + +-------- -------+ + !SSV !Yes !Yes !None ! + + +-------- -------+ + Right Doppler Measurements + ---------+------+-- ----+ + !Location !Signal!Reflux!Refl ux (msec) ! + ---------+------+-- ----+ + !Common Femoral !Phasic!No ! ! + ---------+------+-- ----+ + !Prox Femoral !Phasic!No ! ! + ---------+------+-- ----+ + !Popliteal !Phasic!No ! ! + ---------+------+-- ----+ + Left Lower Extremities DVT Study Measurements Left 2D Measurements + + +-------- -------+ + !Location !Visualized!Roxanna sibility!Thrombosis ! + + +-------- -------+ + !Common Femoral !Yes !Yes !None ! + + +-------- -------+ + Left Doppler Measurements + +------+- -----+ + !Location !Signal!Reflux!Refl ux (msec) ! + +------+- -----+ + !Common Femoral !Phasic! ! ! + +------+- -----+ + [facility], [place], [facility] Incoming Cardio Results From [facility]/ - 05/19/2019 12:32 PM EDT [facility] Vascular Lower Extremities DVT Study Procedure Patient Name NATHAN Date of Study 05/19/2019 DOROTA Al Date of 1995 Gender Female Age 23 year(s) Race Room Number Corporate ID # [id number] Patient MR # [id number] Mixer Helper NGA Fatima Interpreting Physician Arik Krueger MD Referring Referring Physician Rod Conte Nurse Practitioner Additional Comments Copy to Dr. Yossi Schneider . Procedure Type of Study: Veins: Lower Extremities DVT Study, Venous Scan Lower Right. Patient Status:Out Patient. Technical Quality:Adequate visualization. Comments:INDICATION S: Right leg pain Conclusions Summary No evidence of superficial or deep venous thrombosis in the right lower extremity. Signature ------- ------- ------- ------- Findings: Right Impression: Left Impression: The common femoral, femoral, deep The common femoral vein was femoral, popliteal, tibials, peroneal, compressible and with normal and saphenous veins were evaluated. doppler responses. All veins were compressible with normal Prominent lymph nodes were doppler responses. visualized in the groin. Edema was noted in the ankle and calf. Prominent lymph nodes were visualized in the groin. Velocities are measured in cm/s ; Diameters are measured in cm Right Lower Extremities DVT Study Measurements Right 2D Measurements + + +-------- -------+ + !Location !Visualized!Roxanna sibility!Thrombosis ! + + +-------- -------+ + !Common Femoral !Yes !Yes !None ! + + +-------- -------+ + !Prox Femoral !Yes !Yes !None ! + + +-------- -------+ + !Mid Femoral !Yes !Yes !None ! + + +-------- -------+ + !Dist Femoral !Yes !Yes !None ! + + +-------- -------+ + !Deep Femoral !Yes !Yes !None ! + + +-------- -------+ + !Popliteal !Yes !Yes !None ! + + +-------- -------+ + !Sapheno Femoral Junction !Yes !Yes !None ! + + +-------- -------+ + !PTV !Yes !Yes !None ! + + +-------- -------+ + !Peroneal !Yes !Yes !None ! + + +-------- -------+ + !Gastroc !Yes !Yes !None ! + + +-------- -------+ + !GSV Thigh !Yes !Yes !None ! + + +-------- -------+ + !GSV Knee !Yes !Yes !None ! + + +-------- -------+ + !GSV Ankle !Yes !Yes !None ! + + +-------- -------+ + !SSV !Yes !Yes !None ! + + +-------- -------+ + Right Doppler Measurements + ---------+------+-- ----+ + !Location !Signal!Reflux!Refl ux (msec) ! + ---------+------+-- ----+ + !Common Femoral !Phasic!No ! ! + ---------+------+-- ----+ + !Prox Femoral !Phasic!No ! ! + ---------+------+-- ----+ + !Popliteal !Phasic!No ! ! + ---------+------+-- ----+ + Left Lower Extremities DVT Study Measurements Left 2D Measurements + + +-------- -------+ + !Location !Visualized!Roxanna sibility!Thrombosis ! + + +-------- -------+ + !Common Femoral !Yes !Yes !None ! + + +-------- -------+ + Left Doppler Measurements + +------+- -----+ + !Location !Signal!Reflux!Refl ux (msec) ! + +------+- -----+ + !Common Femoral !Phasic! ! ! + +------+- -----+ + [place]- [place] Vital Signs Date Time Vital Sign Value Performing Clinician Ambrose doyle 02-05-2024 19:33-0400 Body temperature 98.01 [degF] Yossi Wells MD Work Phone: [email or web address] 02-05-2024 19:33-0400 Diastolic blood pressure 103 mm[Hg] Yossi Wells MD Work Phone: [email or web address] 02-05-2024 19:33-0400 Heart rate 99 /min Yossi Wells MD Work Phone: [email or web address] 02-05-2024 19:33-0400 Respiratory rate 18 /min Yossi Wells MD Work Phone: [email or web address] 02-05-2024 19:33-0400 SaO2% (BldA) [Mass fraction] 97 % Yossi Wells MD Work Phone: [email or web address] 02-05-2024 19:33-0400 Systolic blood pressure 165 mm[Hg] Yossi Wells MD Work Phone: [email or web address] 01-30-2024 19:30-0400 Diastolic blood pressure 78 mm[Hg] Charly Bowlingellone DO Work Phone: [facility] [employer] 01-30-2024 19:30-0400 Heart rate 92 /min Charly Bowlingellone DO Work Phone: [facility] [employer] 01-30-2024 19:30-0400 Respiratory rate 17 /min Charly Bowlingellone DO Work Phone: [facility] [employer] 01-30-2024 19:30-0400 SaO2% (BldA) [Mass fraction] 96 % Charly Bowlingellone DO Work Phone: [facility] [employer] 01-30-2024 19:30-0400 Systolic blood pressure 131 mm[Hg] Charly Bowlingellone DO Work Phone: [facility] [employer] 01-30-2024 17:51-0400 Body temperature 97.7 [degF] Charly Bowlingellone DO Work Phone: [facility] [employer] 01-04-2024 21:36-0400 Heart rate 90 /min Gloria Vicente MD Work Phone: [facility] [employer] 01-04-2024 19:41-0400 Body temperature 97.7 [degF] Gloria Vicente MD Work Phone: [facility] [employer] 01-04-2024 19:41-0400 Diastolic blood pressure 110 mm[Hg] Gloria Vicente MD Work Phone: [facility] [employer] 01-04-2024 19:41-0400 Respiratory rate 16 /min Gloria Vicente MD Work Phone: [facility] [employer] 01-04-2024 19:41-0400 SaO2% (BldA) [Mass fraction] 97 % Gloria Vicente MD Work Phone: [facility] [employer] 01-04-2024 19:41-0400 Systolic blood pressure 158 mm[Hg] Gloria Vicente MD Work Phone: [email or web address] 11-24-2023 00:09-0500 SaO2% (BldA) [Mass fraction] 94 % Samy Walker MD [facility] [employer] 11-24-2023 00:03-0500 Body height 172.7 cm Samy Walker MD [facility] [employer] 11-24-2023 00:03-0500 Body mass index (BMI) [Ratio] 38.01 kg/m2 [facility] 11-24-2023 00:03-0500 Body weight 113.4 kg Samy Walker MD [facility] [employer] 11-24-2023 00:03-0500 Diastolic blood pressure 87 mm[Hg] Samy Walker MD [facility] [employer] 11-24-2023 00:03-0500 Systolic blood pressure 134 mm[Hg] Samy Walker MD [facility] [employer] 11-23-2023 20:23-0500 Body temperature 97.5 [degF] [facility] 11-23-2023 20:23-0500 Heart rate 99 /min Samy Walker MD [facility] [employer] 11-23-2023 20:23-0500 Respiratory rate 18 /min [facility] 03-23-2023 19:40-0400 Diastolic blood pressure 86 mm[Hg] Nazia Whitlock MD Work Phone: [facility] [employer] 03-23-2023 19:40-0400 Heart rate 72 /min Nazia Whitlock MD Work Phone: [facility] [employer] 03-23-2023 19:40-0400 Respiratory rate 18 /min Nazia Whitlock MD Work Phone: [facility] [employer] 03-23-2023 19:40-0400 SaO2% (BldA) [Mass fraction] 96 % Nazia Whitlock MD Work Phone: [facility] [employer] 03-23-2023 19:40-0400 Systolic blood pressure 125 mm[Hg] Nazia Whitlock MD Work Phone: [email or web address] 03-23-2023 17:45-0400 Body temperature 97.59 [degF] Nazia Whitlock MD Work Phone: [facility] [employer] 02-18-2023 18:02-0400 Body temperature 98.4 [degF] Samy Walker [facility] [employer] 02-18-2023 18:02-0400 Diastolic blood pressure 105 mm[Hg] [facility]y Walker [facility] [employer] 02-18-2023 18:02-0400 Heart rate 105 /min Samy Walker MD [facility] [employer] 02-18-2023 18:02-0400 Respiratory rate 18 /min [facility]y Walker [facility] [employer] 02-18-2023 18:02-0400 SaO2% (BldA) [Mass fraction] 96 % Samy Walker MD [facility] [employer] 02-18-2023 18:02-0400 Systolic blood pressure 153 mm[Hg] Samy Walker MD [facility] [employer] 12-24-2022 17:00-0400 Diastolic blood pressure 69 mm[Hg] Anahi Phelps DO Work Phone: [facility] [employer] 12-24-2022 17:00-0400 Heart rate 76 /min Anahi Phelps DO Work Phone: [facility] 12-24-2022 17:00-0400 Respiratory rate 17 /min Anahi Phelps DO Work Phone: [facility] [employer] 12-24-2022 17:00-0400 SaO2% (BldA) [Mass fraction] 95 % Anahi Phelps DO Work Phone: [facility] [employer] 12-24-2022 17:00-0400 Systolic blood pressure 129 mm[Hg] Anahi Phelps DO Work Phone: [facility] [employer] 12-04-2022 13:20-0400 Blood Pressure Location [facility] [place] 12-04-2022 13:20-0400 Diastolic blood pressure 82 mm[Hg] [facility] [place] 12-04-2022 13:20-0400 Heart rate 80 /min [facility] [place] 12-04-2022 13:20-0400 Respiratory rate 16 /min [facility] [place] 12-04-2022 13:20-0400 Systolic blood pressure 126 mm[Hg] [facility] [place] 11-12-2022 13:30-0500 Diastolic blood pressure 59 mm[Hg] Maryam Malonetrong DO Work Phone: [facility] [employer] 11-12-2022 13:30-0500 Heart rate 85 /min Maryam Malonetrong DO Work Phone: [facility] [employer] 11-12-2022 13:30-0500 Respiratory rate 16 /min Maryam Klineg DO Work Phone: [facility] [employer] 11-12-2022 13:30-0500 SaO2% (BldA) [Mass fraction] 96 % Maryam Klineg DO Work Phone: [facility] [employer] 11-12-2022 13:30-0500 Systolic blood pressure 114 mm[Hg] Maryam Malonetrong DO Work Phone: [facility] [employer] 11-12-2022 11:46-0500 Body temperature 97.59 [degF] Maryam Aquinoy Encinas DO Work Phone: [facility] [employer] 11-12-2022 08:32-0500 Body height 172.7 cm Maryam Klineg DO Work Phone: [facility] [employer] 11-12-2022 08:32-0500 Body mass index (BMI) [Ratio] 37.25 kg/m2 Maryam Malonetrong DO Work Phone: [facility] [employer] 11-12-2022 08:32-0500 Body weight 111.13 kg Maryam Encinas DO Work Phone: [facility] [employer] 11-01-2022 17:44-0500 SaO2% (BldA) [Mass fraction] 96 % Yossi Wells MD Work Phone: [facility] [employer] 11-01-2022 17:40-0500 Diastolic blood pressure 88 mm[Hg] Yossi Wells MD Work Phone: [email or web address] 11-01-2022 17:40-0500 Systolic blood pressure 134 mm[Hg] Yossi Wells MD Work Phone: [email or web address] 11-01-2022 15:04-0500 Body temperature 97.59 [degF] Yossi Wells MD Work Phone: [email or web address] 11-01-2022 15:04-0500 Heart rate 101 /min Yossi Wells MD Work Phone: [email or web address] 11-01-2022 15:04-0500 Respiratory rate 16 /min Yossi Wells MD Work Phone: [email or web address] 10-05-2022 18:08-0500 Body height 172.7 cm Ty Dillard MD Work Phone: [email or web address] 10-05-2022 18:08-0500 Body mass index (BMI) [Ratio] 38.01 kg/m2 Ty Dillard MD Work Phone: [facility] [employer] 10-05-2022 18:08-0500 Body weight 113.4 kg Ty Dillard MD Work Phone: [email or web address] 10-05-2022 17:28-0500 Diastolic blood pressure 88 mm[Hg] Ty Dillard MD Work Phone: [email or web address] 10-05-2022 17:28-0500 Systolic blood pressure 122 mm[Hg] Ty Dillard MD Work Phone: [email or web address] 10-05-2022 17:25-0500 Body temperature 97.59 [degF] Ty Dillard MD Work Phone: [facility] [employer] 10-05-2022 17:25-0500 Heart rate 100 /min Ty Dillard MD Work Phone: [facility] [employer] 10-05-2022 17:25-0500 Respiratory rate 17 /min Ty Dillard MD Work Phone: [facility] [employer] 10-05-2022 17:25-0500 SaO2% (BldA) [Mass fraction] 97 % Ty Dillard MD Work Phone: [facility] [employer] 09-27-2022 23:02-0500 Diastolic blood pressure 94 mm[Hg] Oliver Arenas MD Work Phone: [email or web address] 09-27-2022 23:02-0500 Heart rate 80 /min Oliver Arenas MD Work Phone: [email or web address] 09-27-2022 23:02-0500 Respiratory rate 16 /min Oliver Arenas MD Work Phone: [facility] [employer] 09-27-2022 23:02-0500 SaO2% (BldA) [Mass fraction] 95 % Oliver Arenas MD Work Phone: [email or web address] 09-27-2022 23:02-0500 Systolic blood pressure 124 mm[Hg] Oliver Arenas MD Work Phone: [email or web address] 09-27-2022 18:46-0500 Body height 172.7 cm Oliver Arenas MD Work Phone: [email or web address] 09-27-2022 18:46-0500 Body mass index (BMI) [Ratio] 38.01 kg/m2 Oliver Arenas MD Work Phone: [email or web address] 09-27-2022 18:46-0500 Body temperature 97.9 [degF] Oliver Arenas MD Work Phone: [facility] [employer] 09-27-2022 18:46-0500 Body weight 113.4 kg Oliver Arenas MD Work Phone: [facility] [employer] 07-08-2022 16:08-0400 SaO2% (BldA) [Mass fraction] 98 % Yossi Wells MD Work Phone: [facility] [employer] 07-08-2022 16:03-0400 Diastolic blood pressure 90 mm[Hg] Yossi Wells MD Work Phone: [facility] [employer] 07-08-2022 16:03-0400 Systolic blood pressure 130 mm[Hg] Yossi Wells MD Work Phone: [facility] [employer] 07-08-2022 15:15-0400 Body temperature 97.59 [degF] Yossi Wells MD Work Phone: [facility] [employer] 07-08-2022 15:15-0400 Heart rate 93 /min Yossi Wells MD Work Phone: [facility] [employer] 03-11-2022 01:19-0400 Diastolic blood pressure 79 mm[Hg] Samy Walker MD [facility] [employer] 03-11-2022 01:19-0400 SaO2% (BldA) [Mass fraction] 97 % Samy Walker MD [facility] [employer] 03-11-2022 01:19-0400 Systolic blood pressure 111 mm[Hg] Samy Walker MD [facility] [employer] 03-11-2022 00:49-0400 Body height 172.7 cm Samy Walker MD [facility] [employer] 03-11-2022 00:49-0400 Body mass index (BMI) [Ratio] 38.01 kg/m2 Samy Walker MD [facility] [employer] 03-11-2022 00:49-0400 Body temperature 97.7 [degF] Samy Walker MD [facility] [employer] 03-11-2022 00:49-0400 Body weight 113.4 kg Samy Walker MD [facility] 03-11-2022 00:49-0400 Heart rate 103 /min Samy Walker MD [facility] 03-11-2022 00:49-0400 Respiratory rate 18 /min Samy Walker MD [facility] 01-04-2022 18:57-0400 Body temperature 97.39 [degF] Renard Watkins MD Work Phone: [facility] 01-04-2022 18:57-0400 Diastolic blood pressure 86 mm[Hg] Renard Watkins MD Work Phone: [facility] 01-04-2022 18:57-0400 Heart rate 94 /min Renard Watkins MD Work Phone: [facility] 01-04-2022 18:57-0400 Respiratory rate 16 /min Renard Watkins MD Work Phone: [facility] 01-04-2022 18:57-0400 SaO2% (BldA) [Mass fraction] 99 % Renard Watkins MD Work Phone: [facility] 01-04-2022 18:57-0400 Systolic blood pressure 138 mm[Hg] Renard Watkins MD Work Phone: [facility] 12-05-2021 00:14-0400 Body temperature 98.6 [degF] Samy Walker MD [facility] 12-05-2021 00:14-0400 Diastolic blood pressure 80 mm[Hg] Samy Walker MD [facility] 12-05-2021 00:14-0400 Heart rate 99 /min Samy Walker MD [facility] 12-05-2021 00:14-0400 Respiratory rate 18 /min Samy Walker MD [facility] 12-05-2021 00:14-0400 SaO2% (BldA) [Mass fraction] 98 % Samy Walker MD [facility] 12-05-2021 00:14-0400 Systolic blood pressure 127 mm[Hg] Samy Walker MD [facility] 09-06-2021 14:43-0500 Body height 172.7 cm Yossi Wells MD Work Phone: [employer] 09-06-2021 14:43-0500 Body mass index (BMI) [Ratio] 38.01 kg/m2 Yossi Wells MD Work Phone: [employer] 09-06-2021 14:43-0500 Body temperature 98.4 [degF] Yossi Wells MD Work Phone: [facility] 09-06-2021 14:43-0500 Body weight 113.4 kg Yossi Wells MD Work Phone: [facility] 09-06-2021 14:43-0500 Diastolic blood pressure 100 mm[Hg] Yossi Wells MD Work Phone: [facility] 09-06-2021 14:43-0500 Heart rate 113 /min Yossi Wells MD Work Phone: [facility] 09-06-2021 14:43-0500 Respiratory rate 18 /min Yossi Wells MD Work Phone: [facility] 09-06-2021 14:43-0500 SaO2% (BldA) [Mass fraction] 97 % Yossi Wells MD Work Phone: [employer] 09-06-2021 14:43-0500 Systolic blood pressure 132 mm[Hg] Yossi Wells MD Work Phone: [employer] 06-02-2021 18:45-0400 Body temperature 98.1 [degF] Yossi Wells MD Work Phone: [employer] Work Phone: 06-02-2021 18:45-0400 Diastolic blood pressure 111 mm[Hg] Yossi Wells MD Work Phone: [employer] Work Phone: 06-02-2021 18:45-0400 Heart rate 104 /min Yossi Wells MD Work Phone: [employer] Work Phone: 06-02-2021 18:45-0400 Respiratory rate 16 /min Yossi Wells MD Work Phone: [employer] Work Phone: 06-02-2021 18:45-0400 SaO2% (BldA) [Mass fraction] 99 % Yossi Wells MD Work Phone: [employer] Work Phone: 06-02-2021 18:45-0400 Systolic blood pressure 140 mm[Hg] Yossi Wells MD Work Phone: [employer] Work Phone: 03-20-2021 15:00-0400 Diastolic blood pressure 80 mm[Hg] Maryam Rony Encinas DO Work Phone: [employer] Work Phone: 03-20-2021 15:00-0400 Heart rate 62 /min Maryam Aquinoy Encinas DO Work Phone: [employer] Work Phone: 03-20-2021 15:00-0400 Respiratory rate 16 /min Maryam Aquinoy Encinas DO Work Phone: [employer] Work Phone: 03-20-2021 15:00-0400 SaO2% (BldA) [Mass fraction] 98 % Maryam Rony Encinas DO Work Phone: [employer] Work Phone: 03-20-2021 15:00-0400 Systolic blood pressure 159 mm[Hg] Maryam Rony Encinas DO Work Phone: [employer] Work Phone: 03-20-2021 14:15-0400 Body temperature 97.5 [degF] Maryam Rony Encinas DO Work Phone: [employer] Work Phone: 03-20-2021 12:45-0400 Body height 172.7 cm Maryam Rony Encinas [employer] Work Phone: [employer] Work Phone: 03-20-2021 12:45-0400 Body mass index (BMI) [Ratio] 39.23 kg/m2 Maryam Encinas [employer] Work Phone: [employer] Work Phone: 03-20-2021 12:45-0400 Body weight 117.03 kg Maryam Encinas [employer] Work Phone: [employer] Work Phone: 11-28-2020 00:06-0500 BP Diastolic 98 mm[Hg] Praveen [employer] Work Phone: 11-28-2020 00:06-0500 BP Systolic 140 mm[Hg] Praveen [email or web address] Work Phone: 11-28-2020 00:03-0500 Body Temperature 97.9 [degF] Praveen [employer] Work Phone: 11-28-2020 00:03-0500 Pulse (Heart Rate) 108 /min Praveen [email or web address] Work Phone: 11-28-2020 00:03-0500 Pulse Oximetry 98 % [employer] Phone: 11-28-2020 00:03-0500 Respiratory Rate 16 /min Praveen [email or web address] Work Phone: 09-26-2020 07:05-0500 Body Temperature 97.81 [degF] [facility] [place] [place] 09-26-2020 07:05-0500 BP Diastolic 72 mm[Hg] [facility] [place] , [place] 09-26-2020 07:05-0500 BP Systolic 140 mm[Hg] [facility] [place] [facility] [place] 09-26-2020 07:05-0500 Pulse (Heart Rate) 70 /min [employer] [place], [place] 09-26-2020 07:05-0500 Pulse Oximetry 98 % Guy Ramon [facility] , [place] 09-25-2020 22:30-0500 Respiratory Rate 16 /min Guy Kwong [facility], [place] 09-24-2020 21:16-0500 BMI (Body Mass Index) 33.45 kg/m2 Guy Kwong [facility], [place] 09-24-2020 21:16-0500 Body weight 99.79 kg Guy Ramon [facility] , [place] 09-24-2020 21:16-0500 Height 172.7 cm Guy Ramon [facility] , [place] 09-24-2020 19:45-0500 BP Diastolic 96 mm[Hg] [facility] [place] 09-24-2020 19:45-0500 BP Systolic 138 mm[Hg] [facility] [place] 09-24-2020 19:45-0500 Pulse (Heart Rate) 97 /min [facility] [place] 09-24-2020 19:45-0500 Pulse Oximetry 98 % Yossi Wells [facility] , [place] 09-24-2020 17:10-0500 BMI (Body Mass Index) 33.45 kg/m2 Yossi Kwong [facility], [place] 09-24-2020 17:10-0500 Body Temperature 96.91 [degF] [facility] [place] 09-24-2020 17:10-0500 Body weight 99.79 kg [facility] [place] 09-24-2020 17:10-0500 Height 172.7 cm [facility] [place] 09-24-2020 17:10-0500 Respiratory Rate 20 /min [facility] [place] 09-17-2020 16:45-0500 BMI (Body Mass Index) 33.45 kg/m2 Yossi Kwong [facility], [place] 09-17-2020 16:45-0500 Body Temperature 96.8 [degF] [facility] [place] 09-17-2020 16:45-0500 Body weight 99.79 kg Yossi Kwong [facility] , [place] 09-17-2020 16:45-0500 BP Diastolic 74 mm[Hg] Yossi Kwong [facility] , [place] 09-17-2020 16:45-0500 BP Systolic 120 mm[Hg] Yossi Kwong [facility] , [place] 09-17-2020 16:45-0500 Height 172.7 cm Yossi Kwong [facility] , [place] 09-17-2020 16:45-0500 Pulse (Heart Rate) 103 /min Yossi Kwong [facility], [place] 09-17-2020 16:45-0500 Pulse Oximetry 98 % Yossi Kwong [facility] , [place] 09-17-2020 16:45-0500 Respiratory Rate 16 /min Yossi Kwong [facility], [place] 08-27-2020 13:47-0500 BP Diastolic 71 mm[Hg] Oliver Arenas [facility], [place] 08-27-2020 13:47-0500 BP Systolic 101 mm[Hg] [facility] [place] 08-27-2020 13:47-0500 Pulse (Heart Rate) 85 /min Oliver Arenas [facility], [place] 08-27-2020 13:47-0500 Pulse Oximetry 95 % Oliver Arenas [facility], [place] 08-27-2020 13:47-0500 Respiratory Rate 16 /min Oliver Arenas [facility], [place] 08-27-2020 10:49-0500 BMI (Body Mass Index) 34.52 kg/m2 Oliver Kwong [facility], [place] 08-27-2020 10:49-0500 Body Temperature 98.01 [degF] [facility] [place] 08-27-2020 10:49-0500 Body weight 102.97 kg Oliver Arenas [facility], [place] 08-13-2020 13:57-0500 BMI (Body Mass Index) 33.45 kg/m2 Oliver Kwong [facility], [place] 08-13-2020 13:57-0500 Body Temperature 98.6 [degF] Oliver Arenas [facility], [place] 08-13-2020 13:57-0500 Body weight 99.79 kg Oliver [facility], [place] 08-13-2020 13:57-0500 BP Diastolic 98 mm[Hg] [facility], [place] 08-13-2020 13:57-0500 BP Systolic 149 mm[Hg] [facility] [place] 08-13-2020 13:57-0500 Height 172.7 cm [facility], [place] 08-13-2020 13:57-0500 Pulse (Heart Rate) 100 /min [facility], [place] 08-13-2020 13:57-0500 Pulse Oximetry 99 % [facility] [place] 08-13-2020 13:57-0500 Respiratory Rate 16 /min [facility], [place] 06-15-2020 06:43-0400 Body Temperature 99.61 [degF] [facility]hat [facility], [place] 06-15-2020 06:43-0400 BP Diastolic 75 mm[Hg] Farhat [facility] , [place] 06-15-2020 06:43-0400 BP Systolic 114 mm[Hg] Farhat [facility] , [place] 06-15-2020 06:43-0400 Pulse Oximetry 93 % [facility] , [place] 06-15-2020 06:43-0400 Respiratory Rate 18 /min [facility] , [place] 06-15-2020 04:45-0400 BMI (Body Mass Index) 34.14 kg/m2 [facility]hat [facility], [place] 06-15-2020 04:45-0400 Body weight 101.83 kg Frahat [facility] , [place] 06-15-2020 04:45-0400 Pulse (Heart Rate) 98 /min [facility] [place] 06-14-2020 08:05-0400 Height 172.7 cm Farhat [facility] [place] , [place] 05-24-2020 08:10-0400 BP Diastolic 75 mm[Hg] Ramilasky Elmore [facility] , [place] 05-24-2020 08:10-0400 BP Systolic 125 mm[Hg] Ramila Elmore [facility] , [place] 05-24-2020 08:10-0400 Pulse (Heart Rate) 74 /min Ramilasky Elmore [facility], [place] 05-24-2020 08:10-0400 Respiratory Rate 16 /min Ramilasky Elmore [facility], [place] 05-24-2020 08:09-0400 Body Temperature 97.7 [degF] Ramila Elmore [facility], [place] 05-22-2020 19:32-0400 Pulse Oximetry 100 % Ramilasky Elmore [facility] , [place] 05-22-2020 16:41-0400 BMI (Body Mass Index) 35.78 kg/m2 Ramilasky Elmore [facility], [place] 05-22-2020 16:41-0400 Body weight 108.32 kg Ramilasky Elmore [facility] , [place] 05-22-2020 16:41-0400 Height 174 cm Ramilasky Elmore [facility] , [place] 05-19-2020 14:15-0400 Body Temperature 98.1 [degF] [facility] [place] 05-19-2020 14:15-0400 Respiratory Rate 18 /min Ramila [facility], [place] 05-19-2020 14:14-0400 BP Diastolic 91 mm[Hg] [facility] , [place] 05-19-2020 14:14-0400 BP Systolic 127 mm[Hg] [facility] , [place] 05-19-2020 14:14-0400 Pulse (Heart Rate) 110 /min [facility], [place] 04-29-2020 13:38-0400 BP Diastolic 64 mm[Hg] Maryamhaseeb Uribe [facility], [place] 04-29-2020 13:38-0400 BP Systolic 118 mm[Hg] Maryam Uribe [facility], [place] 04-29-2020 13:38-0400 Pulse (Heart Rate) 94 /min [facility] [place] 04-29-2020 13:27-0400 Respiratory Rate 18 /min [facility] [place] [place], [place] 04-07-2020 23:55-0400 BMI (Body Mass Index) 38.22 kg/m2 Dina Kwong [facility], [place] 04-07-2020 23:55-0400 Body weight 110.68 kg Dina Valenzuela [facility] , [place] 04-07-2020 23:55-0400 Height 170.2 cm Dina Valenzuela [facility] , [place] 04-07-2020 23:21-0400 Body Temperature 97.7 [degF] Dina Valenzuela [facility], [place] 04-07-2020 23:21-0400 BP Diastolic 83 mm[Hg] Dina Valenzuela [facility] , [place] 04-07-2020 23:21-0400 BP Systolic 138 mm[Hg] Dina Valenzuela [facility] , [place] 04-07-2020 23:21-0400 Pulse (Heart Rate) 106 /min Dina Valenzuela [facility], [place] 04-07-2020 23:21-0400 Respiratory Rate 20 /min Dina Valenzuela [facility], [place] 04-03-2020 00:26-0400 Pulse Oximetry 95 % [facility] [place] [place] 04-02-2020 23:35-0400 BP Diastolic 62 mm[Hg] [facility] [place] [place] 04-02-2020 23:35-0400 BP Systolic 122 mm[Hg] [facility] [place] [place] 04-02-2020 23:35-0400 Pulse (Heart Rate) 121 /min [facility] [place] [place] 04-02-2020 22:03-0400 Body Temperature 98.29 [degF] [facility] [place] [place] 04-02-2020 22:03-0400 Respiratory Rate 16 /min [facility] [place] [place] 03-29-2020 19:46-0400 BP Diastolic 55 mm[Hg] Ramila Elmore [facility] , [place] 03-29-2020 19:46-0400 BP Systolic 101 mm[Hg] Ramila Elmore [facility] , [place] 03-29-2020 19:46-0400 Pulse (Heart Rate) 98 /min Ramila Elmore [facility], [place] 03-29-2020 18:09-0400 BMI (Body Mass Index) 37.4 kg/m2 Ramila Kwong [facility], [place] 03-29-2020 18:09-0400 Body Temperature 97.5 [degF] Ramila Elmore [facility], [place] 03-29-2020 18:09-0400 Body weight 111.58 kg Ramila Elmore [facility] , [place] 03-29-2020 18:09-0400 Height 172.7 cm Ramila Elmore [facility] , [place] 03-29-2020 18:09-0400 Respiratory Rate 16 /min [facility], [place] 02-26-2020 18:45-0400 BP Diastolic 74 mm[Hg] [facility] [place] 02-26-2020 18:45-0400 BP Systolic 129 mm[Hg] [facility], [place] 02-26-2020 18:45-0400 Pulse (Heart Rate) 90 /min [facility], [place] 02-26-2020 17:18-0400 Body Temperature 96.8 [degF] [facility], [place] 02-26-2020 17:18-0400 Respiratory Rate 18 /min Maryam Rony [facility], [place] 02-01-2020 20:04-0400 BP Diastolic 53 mm[Hg] [facility] [place] 02-01-2020 20:04-0400 BP Systolic 102 mm[Hg] [facility] , [place] 02-01-2020 20:04-0400 Pulse (Heart Rate) 88 /min [facility], [place] 02-01-2020 19:38-0400 BMI (Body Mass Index) 38.01 kg/m2 [facility] [place] [place] 02-01-2020 19:38-0400 Body weight 113.4 kg [facility] , [place] 02-01-2020 19:38-0400 Height 172.7 cm [facility] [place] 02-01-2020 19:21-0400 Body Temperature 98.01 [degF] [facility], [place] 02-01-2020 19:21-0400 Respiratory Rate 18 /min [facility] 02-01-2020 18:15-0400 BP Diastolic 63 mm[Hg] Farhat [facility] , [place] 02-01-2020 18:15-0400 BP Systolic 111 mm[Hg] Farhat [facility] , [place] 02-01-2020 18:15-0400 Pulse (Heart Rate) 96 /min Farhat [facility], [place] 02-01-2020 18:15-0400 Pulse Oximetry 100 % Farhat [facility] , [place] 02-01-2020 18:15-0400 Respiratory Rate 18 /min Farhat [facility], [place] 02-01-2020 17:03-0400 BMI (Body Mass Index) 38.01 kg/m2 Farhat [facility], [place] 02-01-2020 17:03-0400 Body Temperature 97.9 [degF] Farhat [facility], [place] 02-01-2020 17:03-0400 Body weight 113.4 kg Farhat [facility] , [place] 02-01-2020 17:03-0400 Height 172.7 cm Farhat [facility] , [place] 01-10-2020 23:47-0400 BP Diastolic 67 mm[Hg] [facility] , [place] 01-10-2020 23:47-0400 BP Systolic 121 mm[Hg] Efra [facility] , [place] 01-10-2020 23:47-0400 Pulse (Heart Rate) 83 /min [facility], [place] 01-10-2020 23:47-0400 Pulse Oximetry 97 % [facility] , [place] 01-10-2020 21:29-0400 Body Temperature 97.5 [degF] Efra Vazquez [facility], [place] 01-10-2020 21:28-0400 Respiratory Rate 16 /min Efra Vazquez [facility], [place] 12-18-2019 12:49-0400 Body weight 93 [facility] [place] 12-14-2019 16:53-0400 BP Diastolic 56 mm[Hg] Yossi Wells [facility] , [place] 12-14-2019 16:53-0400 BP Systolic 128 mm[Hg] Yossi Wells [facility] , [place] 12-14-2019 16:05-0400 BMI (Body Mass Index) 38.62 kg/m2 Yossi Kwong [facility], [place] 12-14-2019 16:05-0400 Body Temperature 98.8 [degF] [facility], [place] 12-14-2019 16:05-0400 Body weight 115.21 kg [facility] , [place] 12-14-2019 16:05-0400 Pulse (Heart Rate) 103 /min [facility] [place] 12-14-2019 16:05-0400 Pulse Oximetry 99 % [facility] , [place] 12-14-2019 16:05-0400 Respiratory Rate 19 /min [facility], [place] 09-24-2019 18:47-0500 Body height 172.7 cm Rod Conte MD Work Phone: [employer] Work Phone: 09-24-2019 18:47-0500 Body mass index (BMI) [Ratio] 40.45 kg/m2 Rod Conte MD Work Phone: [employer] Work Phone: 09-24-2019 18:47-0500 Body weight 120.66 kg Rod Conte MD Work Phone: [employer] Work Phone: 09-24-2019 18:47-0500 Diastolic blood pressure 64 mm[Hg] Rod Conte MD Work Phone: [employer] Work Phone: 09-24-2019 18:47-0500 Heart rate 110 /min Rod Conte MD Work Phone: [employer] Work Phone: 09-24-2019 18:47-0500 SaO2% (BldA) [Mass fraction] 97 % Rod Conte MD Work Phone: [employer] Work Phone: 09-24-2019 18:47-0500 Systolic blood pressure 98 mm[Hg] Rod Conte MD Work Phone: [employer] Work Phone: 09-24-2019 18:46-0500 Body temperature 98.71 [degF] Rod Conte MD Work Phone: [employer] Work Phone: 09-24-2019 18:46-0500 Respiratory rate 16 /min Rod Conte MD Work Phone: [employer] Work Phone: 07-29-2019 01:46-0500 BP Diastolic 77 mm[Hg] [facility] , [place] 07-29-2019 01:46-0500 BP Systolic 119 mm[Hg] [facility] , [place] 07-29-2019 01:46-0500 Pulse Oximetry 95 % [facility] , [place] 07-29-2019 01:01-0500 Pulse (Heart Rate) 82 /min [facility], [place] 07-28-2019 22:24-0500 BMI (Body Mass Index) 38.47 kg/m2 [facility], [place] 07-28-2019 22:24-0500 Body Temperature 96.91 [degF] [facility], [place] 07-28-2019 22:24-0500 Body weight 114.76 kg [facility] , [place] 07-28-2019 22:24-0500 Height 172.7 cm [facility] , [place] 07-28-2019 22:24-0500 Respiratory Rate 18 /min Efra Kwong [facility], [place] 05-25-2019 21:45-0400 BP Diastolic 80 mm[Hg] [facility] [place] 05-25-2019 21:45-0400 BP Systolic 108 mm[Hg] [facility] [place] 05-25-2019 21:45-0400 Pulse (Heart Rate) 76 /min [facility] [place] 05-25-2019 21:45-0400 Respiratory Rate 18 /min [facility], [place] 05-25-2019 20:32-0400 Pulse Oximetry 98 % [facility] [place] 05-25-2019 19:54-0400 BMI (Body Mass Index) 39.99 kg/m2 Yossi Kwong [facility], [place] 05-25-2019 19:54-0400 Body Temperature 97.81 [degF] Yossi Wells [facility], [place] 05-25-2019 19:54-0400 Body weight 119.3 kg [facility] [place] 05-19-2019 01:08-0400 BP Diastolic 101 mm[Hg] [facility] [place] 05-19-2019 01:08-0400 BP Systolic 152 mm[Hg] Rod Conte [facility] , [place] 05-19-2019 01:08-0400 Pulse (Heart Rate) 110 /min [facility] [place] 05-19-2019 01:08-0400 Pulse Oximetry 97 % Rod Conte [facility] , [place] 05-19-2019 01:08-0400 Respiratory Rate 16 /min [facility] [place] 05-19-2019 01:05-0400 Body Temperature 97.59 [degF] Rod Conte [facility], [place] Encounters Encounter Date Encounter Type Care Provider Facility Start: 05-11-2024 ambulatory Yossi mcnally MD Facility:[facility] Start: 04-09-2024 End: 04-09-2024 Emergency department patient visit [facility] Start: 04-06-2024 End: 04-06-2024 Emergency department patient visit [facility] Start: 03-19-2024 End: 03-19-2024 ambulatory Yossi Wells MD Facility:[facility]urosurgic [facility] Start: 03-15-2024 End: 03-15-2024 Emergency department patient visit Yossi Wells MD Facility:[facility] Start: 03-10-2024 End: 03-11-2024 Emergency department patient visit Yossi Wells MD Facility:[facility] Start: 03-09-2024 End: 03-09-2024 Emergency department patient visit [facility] Start: 02-26-2024 End: 02-26-2024 ambulatory Yossi Wells MD Facility[facility] Start: 02-12-2024 End: 02-12-2024 ambulatory Yossi Wells MD Facility:[facility] Start: 02-07-2024 End: 02-07-2024 Emergency department patient visit Katie Ohara [employer] Facility:[facility] Start: 02-05-2024 End: 02-05-2024 Emergency department patient visit [facility] ED Comment on above: Chronic abdominal pa in (Primary Dx); Diarrhea, unspecified type Start: 01-30-2024 End: 01-30-2024 Emergency department patient visit Charly Seay DO Work Phone: [facility] Comment on above: Chest pain, unspecif ied type (Primary Dx) Start: 01-27-2024 End: 01-27-2024 Emergency department patient visit [facility] Start: 01-16-2024 End: 01-16-2024 Emergency department patient visit [facility] Start: 01-13-2024 End: 01-13-2024 Emergency department patient visit [facility] Start: 01-04-2024 End: 01-04-2024 Emergency department patient visit Gloria Vicente MD Work Phone: [facility] ED Comment on above: Diarrhea, unspecifie d type (Primary Dx); Viral illness Start: 12-24-2023 End: 12-25-2023 ambulatory YOSSI [facility] Start: 11-23-2023 End: 11-24-2023 Emergency department patient visit Samy Walker MD [facility] ED Comment on above: Lower abdominal pain (Primary Dx) Start: 11-13-2023 End: 11-14-2023 Emergency department patient visit Nilda Deal MD Facility:[facility] Start: 10-25-2023 End: 10-25-2023 Emergency department patient visit [facility] Start: 10-14-2023 End: 10-14-2023 Emergency department patient visit [facility] Start: 09-25-2023 ambulatory YOSSI KENY [facility] Start: 09-17-2023 End: 09-17-2023 Emergency department patient visit GLORIA [facility] Start: 09-04-2023 End: 09-04-2023 Subsequent hospital visit by physician [facility] Start: 08-26-2023 [facility] Start: 08-20-2023 End: 08-20-2023 ambulatory YOSSI [facility] Start: 08-03-2023 End: 08-03-2023 Emergency department patient visit GLORIA [facility] Start: 08-01-2023 End: 08-01-2023 Emergency department patient visit [facility] Start: 07-29-2023 End: 07-30-2023 ambulatory RAY JOHNSON [facility] Start: 06-20-2023 End: 06-21-2023 ambulatory [facility] Start: 06-15-2023 End: 06-16-2023 Emergency department patient visit [facility] Start: 06-03-2023 End: 06-04-2023 Emergency department patient visit GLORIA VICENTE [facility] Start: 04-22-2023 End: 04-22-2023 ambulatory Violette Hernadez MD Facility: [facility] Start: 03-23-2023 End: 03-23-2023 Emergency department patient visit Nazia Whitlock MD Work Phone: [facility] ED Comment on above: Syncope, unspecified syncope type (Primary Dx) Start: 02-18-2023 End: 02-18-2023 Emergency department patient visit Samy Walker MD [facility] ED Comment on above: Hyperglycemia (Prima ry Dx); Diarrhea, unspecified type Start: 12-26-2022 End: 12-27-[address] YOSSI WELLS Facility:[facility] Start: 12-24-2022 End: 12-24-2022 Emergency department patient visit Anahi Phelps DO Work Phone: [facility] ED Comment on above: Chest pain, unspecif ied type (Primary Dx) Start: 12-04-2022 End: 12-05-2022 ambulatory Ortiz R NILKael Facility:[facility] Start: 12-04-2022 End: 12-04-2022 Patient encounter procedure Ortiz GARDNER [facility] [place] Start: 11-21-2022 ambulatory Ortiz NILKael Facility:[facility] Start: 11-21-2022 End: 11-22-2022 ambulatory Ortiz R NILL Facility:[facility] [place] Start: 11-21-2022 End: 11-21-2022 Admission to same day surgery center Ortiz MEADEL [facility] [place] Start: 11-21-2022 End: 11-21-2022 Subsequent hospital visit by physician Yossi Wells MD Work Phone: [facility] Start: 11-12-2022 End: 02-20-2023 Subsequent hospital visit by physician Maryam Encinas DO Work Phone: [facility] Comment on above: Post-op pain (Primar y Dx); Dysmenorrhea Start: 11-01-2022 End: 11-01-2022 Emergency department patient visit Yossi Wells MD Work Phone: [facility] Comment on above: Chronic pelvic pain in female (Primary Dx) Start: 10-05-2022 End: 10-05-2022 Emergency department patient visit Ty Dillard MD Work Phone: [facility] Comment on above: Endometriosis (Prima ry Dx) Start: 09-27-2022 End: 09-28-2022 Emergency department patient visit Oliver Arenas MD Work Phone: [facility] Comment on above: Lower abdominal pain (Primary Dx); Endometriosis; History of PCOS; Morbid obesity due to excess calories (HCC) Start: 07-08-2022 End: 07-08-2022 Emergency department patient visit Yossi Wells MD Work Phone: [facility] Comment on above: Bronchitis (Primary Dx) Start: 04-23-2022 End: 04-23-[address] YOSSI WELLS Facility:[facility] Start: 03-23-2022 Encounter for genera l adult medical examination without abnormal findings DR YOSSI WELLS [facility] Start: 03-21-2022 End: 03-22-[address] YOSSI WELLS Facility:[facility] Start: 03-21-2022 End: 03-22-2022 Encounter for general adult medical examination without abnormal findings DR YOSSI WELLS Facility:[facility] Start: 03-11-2022 End: 03-11-2022 Emergency department patient visit Samy Walker MD [facility] ED Comment on above: Generalized abdomina l pain (Primary Dx); Diarrhea, unspecified type; Nausea Start: 01-04-2022 End: 01-04-2022 Emergency department patient visit Renard Watkins MD Work Phone: [facility] Comment on above: Musculoskeletal pain (Primary Dx) Start: 12-05-2021 End: 12-05-2021 Emergency department patient visit Samy Walker MD [facility] Comment on above: Hyperglycemia (Prima ry Dx) Start: 09-06-2021 End: 09-06-2021 Emergency department patient visit Yossi Wells MD Work Phone: [facility] Comment on above: Cough (Primary Dx); Acute upper respiratory infection; Encounter for laboratory testing for COVID-19 virus Start: 06-02-2021 End: 06-02-2021 Emergency department patient visit Yossi Wells MD Work Phone: [facility] Comment on above: Acute bronchitis, un specified organism (Primary Dx) Start: 05-26-2021 End: 05-28-2021 Subsequent hospital visit by physician [facility] Radiologist [facility] Radiology Comment on above: Abdominal pain, epig astric Start: 05-22-2021 End: 05-22-2021 Patient encounter status [facility] Schedule [facility] Covid Scre ening Start: 05-22-2021 End: 05-22-2021 Subsequent hospital visit by physician Sophy Covid Screening Schedule [facility] Covid Screening Comment on above: Preop testing Start: 05-16-2021 End: 05-16-2021 Subsequent hospital visit by physician Yossi Wells MD Work Phone: [facility] Laboratory Start: 03-20-2021 End: 03-20-2021 Subsequent hospital visit by physician Maryam Encinas DO Work Phone: [facility] OR Comment on above: Post-op pain (Primar y Dx) Start: 11-27-2020 End: 11-28-2020 Emergency department patient visit Praveen Díaz Work Phone: [facility] ED Comment on above: Abscess of right thi gh (Primary Dx) Start: 09-24-2020 End: 09-26-2020 Evaluation and management of inpatient Guy Micki Ramon Work Phone: [facility] Ortho/Med Surg Comment on above: Lumbar disc herniati on with radiculopathy (Primary Dx) Start: 09-24-2020 End: 09-24-2020 Emergency department patient visit [facility] ED Comment on above: Acute midline low ba ck pain with bilateral sciatica (Primary Dx) Start: 09-17-2020 End: 09-17-2020 Emergency department patient visit [facility] ED Comment on above: Lumbar disc herniati on (Primary Dx) Start: 08-27-2020 End: 08-27-2020 Emergency department patient visit Oliver Arenas Work Phone: [facility] ED Comment on above: Right lower quadrant abdominal pain (Primary Dx) Start: 08-13-2020 End: 08-13-2020 Emergency department patient visit Oliver Arenas Work Phone: [facility] ED Comment on above: Closed head injury, initial encounter (Primary Dx); Injury of head, initial encounter; Concussion without loss of consciousness, initial encounter Start: 08-05-2020 End: 08-05-2020 Subsequent hospital visit by physician Yossi QUIGLEY Laboratory Comment on above: PE (pulmonary thromb oembolism) (HCC); Hypercoagulable state (HCC); Smoker Start: 07-25-2020 End: 07-25-2020 Subsequent hospital visit by physician Yossi QUIGLEY Laboratory Comment on above: Iron deficiency anem ia due to chronic blood loss Start: 06-13-2020 End: 06-15-2020 Evaluation and management of inpatient Farhat Patricia Llanes Work Phone: [email or web address] Comment on above: Acute pulmonary embo lism without acute cor pulmonale, unspecified pulmonary embolism type (HCC) (Primary Dx) Start: 05-22-2020 End: 05-24-2020 Evaluation and management of inpatient Ramila Elmore Work Phone: [email or web address] Labor and Delivery Comment on above: Status post repeat l ow transverse section (Primary Dx) Start: 05-19-2020 End: 05-19-2020 Subsequent hospital visit by physician Ramila Bustillos Work Phone: [email or web address] Labor and Delivery Start: 05-16-2020 End: 05-16-2020 Subsequent hospital visit by physician Yossi Wells [place] [employer] [facility] [employer] Start: 05-11-2020 End: 05-11-2020 Subsequent hospital visit by physician [facility] Program/Music Director [facility] EKG Comment on above: History of pre-eclam psia; Palpitations; LVH (left ventricular hypertrophy); Tachycardia Start: 04-29-2020 End: 04-29-2020 Subsequent hospital visit by physician Maryam Encinas Work Phone: [facility] Labor and Delivery Start: 04-07-2020 End: 04-08-2020 Subsequent hospital visit by physician Dina Valenzuela Work Phone: [facility] Labor and Delivery Start: 04-02-2020 End: 04-03-2020 Subsequent hospital visit by physician Maryam Encinas Work Phone: [facility] Labor and Delivery Start: 03-29-2020 End: 03-29-2020 Subsequent hospital visit by physician Ramila Elmore Work Phone: [facility] Labor and Delivery Start: 02-26-2020 End: 02-26-2020 Subsequent hospital visit by physician Maryam Encinas Work Phone: [facility] Labor and Delivery Start: 02-02-2020 End: 02-04-2020 Subsequent hospital visit by physician [facility] Ultrasound Room [facility] Ultrasound Comment on above: RUQ pain Start: 02-01-2020 End: 02-01-2020 Subsequent hospital visit by physician Diann Farfan Work Phone: [facility] Labor and Delivery Start: 02-01-2020 End: 02-01-2020 Emergency department patient visit Farhat Llanes Work Phone: [facility] ED Comment on above: Dizziness (Primary D x); Right upper quadrant abdominal pain Start: 01-10-2020 End: 01-11-2020 Emergency department patient visit Efra Vazquez Work Phone: [facility] ED Comment on above: Trichomoniasis (Prim felisa Dx) Start: 12-30-2019 End: 12-30-2019 Subsequent hospital visit by physician [facility] Program/Music Director [facility] EKG Comment on above: Essential hypertensi on; Palpitations; Lightheadedness; SOB (shortness of breath); Tachycardia; Episodic lightheadedness Start: 12-18-2019 End: 12-18-2019 Subsequent hospital visit by physician Yossi Wells [facility] Laboratory Start: 12-14-2019 End: 12-14-2019 Emergency department patient visit [facility] ED Comment on above: Fall, initial encoun ter (Primary Dx) Start: 11-26-2019 Patient encounter procedure MARYAM MALONETRONG Facility:[facility] Start: 09-24-2019 End: 09-24-2019 Emergency department patient visit Rod Conte MD Work Phone: [facility] ED Comment on above: Acute upper respirat ory infection (Primary Dx); Positive test Start: 07-28-2019 End: 07-29-2019 Emergency department patient visit Efra A George Work Phone: [facility] ED Comment on above: Cyst of right ovary (Primary Dx) Start: 05-25-2019 End: 05-25-2019 Emergency department patient visit [facility] ED Comment on above: Non-intractable vomi ting with nausea, unspecified vomiting type (Primary Dx) Start: 05-19-2019 End: 05-21-2019 Subsequent hospital visit by physician [facility] Vascular Imaging Room [facility] Vascular Lab Comment on above: Right leg pain Start: 05-19-2019 End: 05-19-2019 Emergency department patient visit Rod Conte Work Phone: [facility] ED Comment on above: Right leg pain (Prim felisa Dx) Procedures Date Procedure Procedure Detail Performing Clinician Start: 01-30-2024 Ct thorax w/contrast material Charly Ranellone DO Work Phone: Start: 01-30-2024 Basic metabolic panel calcium total Charly Ranellone DO Work Phone: Start: 01-30-2024 Ecg routine ecg w/least 12 lds w/i&r Charly Ranellone DO Work Phone: Start: 01-04-2024 Basic metabolic panel calcium total Gloria Vicente MD Work Phone: Start: 01-04-2024 COVID-19, RAPID Gloria Vicente MD Work Phone: Start: 01-04-2024 Iaadiadoo jasbir Vicente MD Work Phone: Start: 11-23-2023 Ct abdomen & pelvis w/contrast material Samy Walker MD Start: 11-23-2023 Urnls dip stick/tablet reagent auto microscopy Samy Walker MD Start: 11-23-2023 Comprehensive metabolic panel Samy Walker MD Start: 03-23-2023 Radiologic exam chest single view Nazia Whitlock MD Work Phone: Start: 03-23-2023 Ct head/brain w/o contrast material Nazia Whitlock MD Work Phone: Start: 03-23-2023 Comprehensive metabolic panel Nazia Whitlock MD Work Phone: Start: 02-18-2023 Ct abdomen & pelvis w/contrast material Samy Walker MD Start: 02-18-2023 GLUCOSE, WHOLE BLOOD Samy Walker MD Start: 02-18-2023 Radiologic exam chest single view Samy Walker MD Start: 02-18-2023 End: 02-18-2023 Comprehensive metabolic panel Samy Walker MD Start: 02-18-2023 Blood gases any combination ph pco2 po2 co2 hco3 Samy Walker MD Start: 02-18-2023 SPECIMEN REJECTION Samy Walker MD Start: 02-18-2023 Urnls dip stick/tablet reagent auto microscopy Samy Walker MD Start: 02-18-2023 GLUCOSE, WHOLE BLOOD Yossi al MD Work Phone: Start: 12-24-2022 Basic metabolic panel calcium total Anahi J Phelps DO Work Phone: Start: 12-24-2022 Urinalysis microscopic only Anahi J Phelps DO Work Phone: Start: 12-24-2022 Urnls dip stick/tablet rgnt auto w/o microscopy Anahi J Phelps DO Work Phone: Start: 12-24-2022 Ecg routine ecg w/least 12 lds w/i&r Anahi J Phelps DO Work Phone: Start: 12-24-2022 Radiologic exam chest single view Anahi J Phelps DO Work Phone: Start: 11-21-2022 Hemoglobin glycosylated a1c Yossi Wells MD Work Phone: Start: 11-01-2022 Us transvaginal Ricardo HERRON-Macy Work Phone: Start: 11-01-2022 Comprehensive metabolic panel Ricardo HERRON-C Work Phone: Start: 11-01-2022 Urine test visual color cmprsn meths Ty Dillard MD Work Phone: Start: 11-01-2022 Urnls dip stick/tablet reagent auto microscopy Ty Dillard MD Work Phone: Start: 10-05-2022 Comprehensive metabolic panel Ty Dillard MD Work Phone: Start: 10-05-2022 Urnls dip stick/tablet rgnt auto w/o microscopy Ty Dillard MD Work Phone: Start: 09-27-2022 Comprehensive metabolic panel Oliver Arenas MD Work Phone: Start: 09-27-2022 Urine test visual color cmprsn meths Oliver Arenas MD Work Phone: Start: 09-27-2022 Urnls dip stick/tablet reagent auto microscopy Oliver Arenas MD Work Phone: Start: 07-08-2022 Ct thorax w/contrast material Ricardo HERRON-C Work Phone: Start: 07-08-2022 Radiologic exam chest 2 views Ricardo HERRON-C Work Phone: Start: 07-08-2022 Comprehensive metabolic panel Ricardo HERRON-Macy Work Phone: Start: 03-11-2022 Ct abdomen & pelvis w/contrast material Samy Walker MD Start: 03-11-2022 Blood count complete auto&auto difrntl wbc Samy Walker MD Start: 03-11-2022 COVID-19, RAPID Samy Walker MD Start: 03-11-2022 Urine test visual color cmprsn meths Samy Walker MD Start: 03-11-2022 Urnls dip stick/tablet reagent auto microscopy Samy Walker MD Start: 01-04-2022 End: 01-04-2022 Radex forearm 2 views Renard Watkins MD Work Phone: Start: 12-05-2021 Gluc bld gluc mntr dev cleared fda spec home use Samy Walker MD Start: 12-05-2021 End: 12-05-2021 GLUCOSE, WHOLE BLOOD Yossi al MD Work Phone: Start: 09-06-2021 COVID-19, RAPID Caleb Erica Tripp PA-C Work Phone: Start: 06-02-2021 Radiologic exam chest 2 views Silvio Ryan PA-C Work Phone: Start: 05-26-2021 Radiologic exam upr gi trc double contrast study Yossi Wells MD Work Phone: Start: 05-16-2021 Basic metabolic panel calcium total Yossi Wells MD Work Phone: Start: 05-16-2021 Hepatic function panel Yossi hector MD Work Phone: Start: 02-14-2021 Microscopic observation [Identifier] in Cervix by Cyto stain Yossi Wells MD Work Phone: Start: 09-25-2020 Mri spinal canal lumbar w/o contrast material Klaus Jamison Work Phone: Start: 09-25-2020 Mri spinal canal thoracic w/o contrast matrl Klaus Jamison Work Phone: Start: 09-24-2020 Blood count complete auto&auto difrntl wbc Rodrigo Cedeno Work Phone: Start: 09-24-2020 Prothrombin time Rodrigo Cedeno Work Phone: Start: 09-24-2020 Thromboplastin time partial plasma/whole blood Rodrigo Cedeno Work Phone: Start: 09-17-2020 Ct lumbar spine w/o contrast material Krystyna Pino Work Phone: Start: 08-27-2020 Ct abdomen & pelvis w/contrast material Oliversky Fitzgeraldu Work Phone: Start: 08-27-2020 Urine test visual color cmprsn meths Oliversky Fitzgeraldu Work Phone: Start: 08-27-2020 Urnls dip stick/tablet reagent auto microscopy Oliver Brigittemaru Work Phone: Start: 08-27-2020 Assay of lactate Oliver Amilcaru Work Phone: Start: 08-27-2020 Assay of lipase Oliver Amilcaru Work Phone: Start: 08-27-2020 Blood count complete auto&auto difrntl wbc Oliver Amilcaru Work Phone: Start: 08-27-2020 Comprehensive metabolic panel Oliver Amilcaru Work Phone: Start: 08-13-2020 Ct head/brain w/o contrast material Oliver Amilcaru Work Phone: Start: 08-05-2020 Assay of homocysteine Tyrone Hwang Work Phone: Start: 07-25-2020 Blood count complete auto&auto difrntl wbc Maryam Encinas Work Phone: Start: 06-15-2020 Blood count complete automated Aissatou Yoder Work Phone: Start: 06-14-2020 Dup-scan xtr veins complete bilateral study Dedra Pineda Work Phone: Start: 06-14-2020 Blood count complete automated Aissatou Yoder Work Phone: Start: 06-13-2020 Intermittent pulse oximetry Dedra Pineda Work Phone: Start: 06-13-2020 Ct thorax w/contrast material Farhat Llanes Work Phone: Start: 06-13-2020 Assay of troponin quantitative Farhat E Eitchpoly Work Phone: Start: 06-13-2020 Basic metabolic panel calcium total Farhat Patricia Llanes Work Phone: Start: 06-13-2020 Blood count complete auto&auto difrntl wbc Farhatnuno Llanes Work Phone: Start: 06-13-2020 Blood count reticulocyte automated Farhatnuno Llanes Work Phone: Start: 06-13-2020 Fibrin dgradj products d-dimer quantitative Farhatnuno Llanes Work Phone: Start: 06-13-2020 Ecg routine ecg w/least 12 lds i&r only Farhatnuno Llanes Work Phone: Start: 06-13-2020 EKG REPORT Hpf Scanning Start: 06-13-2020 Radiologic exam chest single view Farhatnuno Llanes Work Phone: Start: 06-13-2020 Level iv surg pathology gross&microscopic exam Dedra Pineda Work Phone: Start: 05-24-2020 Blood count complete auto&auto difrntl wbc Ramila Elmore Work Phone: Start: 05-24-2020 Glucose tolerance test gtt 3 specimens Ramila Elmore Work Phone: Start: 05-23-2020 GLUCOSE, WHOLE BLOOD Ramila Calvertt h Work Phone: Start: 05-23-2020 GLUCOSE, WHOLE BLOOD Ramila Colin Skinny h Work Phone: Start: 05-23-2020 GLUCOSE, WHOLE BLOOD Ramila Colin Skinny h Work Phone: Start: 05-23-2020 Blood count hemoglobin Michael Helms Work Phone: Start: 05-22-2020 Antibody screen Ramila Elmore Start: 05-22-2020 End: 05-22-2020 delivery only Michael Helms Work Phone: Start: 05-22-2020 Blood count complete automated Michael Helms Work Phone: Start: 05-22-2020 Blood typing serologic abo Michael Matag es Work Phone: Start: 05-22-2020 Level iv surg pathology gross&microscopic exam Michael Helms Work Phone: Start: 05-22-2020 Drug screen class list a Michael Helms Work Phone: Start: 05-19-2020 nonstress test Ramila Micki Castanedaelling Work Phone: Start: 04-29-2020 Urnls dip stick/tablet rgnt auto w/o microscopy Maryam F Rony Encinas Work Phone: Start: 04-07-2020 Urnls dip stick/tablet rgnt auto w/o microscopy Dina Nicolas Work Phone: Start: 04-02-2020 Assay of thyroid stimulating hormone tsh Maryam F Rony Encinas Work Phone: Start: 04-02-2020 Blood count complete auto&auto difrntl wbc Maryam F Rony Encinas Work Phone: Start: 04-02-2020 Urinalysis microscopic only Maryam F Rony Encinas Work Phone: Start: 04-02-2020 Urnls dip stick/tablet rgnt auto w/o microscopy Maryam F Rony Encinas Work Phone: Start: 03-29-2020 GLUCOSE, WHOLE BLOOD Ramila garcia Work Phone: Start: 03-29-2020 Urinalysis microscopic only Maryam F Rony Encinas Work Phone: Start: 03-29-2020 Urnls dip stick/tablet rgnt auto w/o microscopy Maryam F Rony Encinas Work Phone: Start: 02-26-2020 Blood count complete automated Diann E Pool Work Phone: Start: 02-26-2020 Comprehensive metabolic panel Diann E Pool Work Phone: Start: 02-26-2020 Urnls dip stick/tablet rgnt auto w/o microscopy Ramila Elmore Work Phone: Start: 02-02-2020 Us abdominal real time w/image limited Farhatnuno Llanes Work Phone: Start: 02-01-2020 Urnls dip stick/tablet rgnt auto w/o microscopy Farhatnuno Llanes Work Phone: Start: 02-01-2020 Assay of lipase Farhatnuno Llanes Work Phone: Start: 02-01-2020 Assay of magnesium Farhat Patricia Llanes Work Phone: Start: 02-01-2020 BASIC METABOLIC PANEL W/ REFLEX TO MG FOR LOW K Farhatnuno Llanes Work Phone: Start: 02-01-2020 Blood count complete auto&auto difrntl wbc Farhatnuno Llanes Work Phone: Start: 02-01-2020 Hepatic function panel Farhatnuno Llanes Work Phone: Start: 01-10-2020 Assay of lipase Efra A George Work Phone: Start: 01-10-2020 Blood count complete auto&auto difrntl wbc Efra A George Work Phone: Start: 01-10-2020 Urinalysis microscopic only Efra A George Work Phone: Start: 01-10-2020 Urnls dip stick/tablet rgnt auto w/o microscopy Efra A George Work Phone: Start: 12-30-2019 Echo tthrc r-t 2d w/wom-mode compl spec&colr d Silvio Gr Work Phone: Start: 12-18-2019 Creatinine clearance Je Ambrose Work Phone: Start: 12-18-2019 Assay of urea nitrogen quantitative Je Ambrose Work Phone: Start: 12-18-2019 Creatinine blood Je Ambrose Work Phone: Start: 12-18-2019 Creatinine other source Je C Perni Work Phone: Start: 12-18-2019 Protein total xcpt refractometry urine Je Ambrose Work Phone: Start: 11-23-2019 ABO, EXTERNAL RESULT Historical Provider Start: 11-23-2019 C. TRACHOMATIS, EXTERNAL RESULT Historical Provider Start: 11-23-2019 HEPATITIS B, EXTERNAL RESULT Historical Provider Start: 11-23-2019 HEPATITIS C ANTIBODY, EXTERNAL RESULT Historical Provider Start: 11-23-2019 HIV, EXTERNAL RESULT Historical Provider Start: 11-23-2019 N. GONORRHOEAE, EXTERNAL RESULT Historical Provider Start: 11-23-2019 RH FACTOR, EXTERNAL RESULT Historical Pr ovider Start: 11-23-2019 RPR, EXTERNAL RESULT Historical Provider Start: 11-23-2019 RUBELLA TITER, EXTERNAL RESULT Historical Provider Start: 09-24-2019 Assay of lipase Rod Conte MD Work Phone: Start: 09-24-2019 Radiologic exam chest 2 views Rod Conte MD Work Phone: Start: 09-24-2019 Iaadiadoo influenza Rod Conte MD Work Phone: Start: 07-29-2019 Ct abdomen & pelvis w/contrast material Efra [employer] Work Phone: Start: 07-28-2019 Assay of lipase [employer] Work Phone: Start: 07-28-2019 Blood count complete auto&auto difrntl wbc [employer] Work Phone: Start: 07-28-2019 Gonadotropin chorionic qualitative [employer] Work Phone: Start: 07-28-2019 Lactate [Moles/Vol] [employer] Work Phone: Start: 07-28-2019 Prothrombin time [employer] Work Phone: Start: 07-28-2019 Thromboplastin time partial plasma/whole blood [employer] Work Phone: Start: 07-28-2019 Urinalysis microscopic only [employer] Work Phone: Start: 07-28-2019 Urnls dip stick/tablet rgnt auto w/o microscopy Efra Erica Vazquez Work Phone: Start: 05-25-2019 Urinalysis microscopic only Hanna Schmidt Work Phone: Start: 05-25-2019 Urine test visual color cmprsn meths Hanna Schmidt Work Phone: Start: 05-25-2019 Urnls dip stick/tablet rgnt auto w/o microscopy Hanna Schmidt Work Phone: Start: 05-25-2019 Assay of lipase Hanna Schmidt Work Phone: Start: 05-25-2019 Blood count complete auto&auto difrntl wbc Hanna Schmidt Work Phone: Start: 05-25-2019 Ecg routine ecg w/least 12 lds w/i&r Farhat E Eitches Work Phone: Start: 05-19-2019 Dup-scan xtr veins unilateral/limited study Rod Conte Work Phone: Start: 09-23-2017 section [facility] GARDNER Start: 06-27-2017 H/O: section Status post repeat low transverse section Rod Conte MD Work Phone: Start: 09-23-2015 section [facility] GARDNER Bilateral oophorectomy William zack GARDNER section [facility] NIL L Cholecystectomy [facility] NILL Extraction of wisdom tooth M ichpower NILL End: 03-26-2017 H/O: section S/P primary low transverse Rod Conte MD Work Phone: Lacrimal canaliculus structure (body structure) [facility] Laparoscopic hysterectomy Mi chazack GARDNER Laparoscopy [facility] Tonsillectomy Ort[facility] MEADEKael Plan of Treatment Date Care Activity Detail Author Start: 05-24-2030 DTaP/Tdap/Td vaccine (8 - Td or Tdap) DTaP/Tdap/Td vaccine (8 - Td or Tdap) [facility] Start: 05-24-2030 DTaP/Tdap/Td vaccine (8 - Td) DTaP/Tdap/Td vaccine (8 - Td) [place] Start: 10-21-2027 DTaP/Tdap/Td vaccine (7 - Td) DTaP/Tdap/Td vaccine (7 - Td) [place] Start: 01-29-2025 GFR test (Diabetes, CKD 3-4, OR last GFR 15-59) GFR test (Diabetes, CKD 3-4, OR last GFR 15-59) [facility] Start: 01-03-2025 GFR test (Diabetes, CKD 3-4, OR last GFR 15-59) GFR test (Diabetes, CKD 3-4, OR last GFR 15-59) [facility] Start: 04-23-2024 Influenza vaccination Flu vaccine (Season Ended) [facility] Start: 02-15-2024 Screening for malignant neoplasm of cervix [facility] Start: 11-22-2023 Hemoglobin A1c measurement A1C test (Diabetic or Prediabetic) [facility] Start: 09-25-2023 End: 09-25-2023 Patient encounter procedure 09/25/2023 9:15 AM EST Appointment [facility] Physical Therapy [address] [place] [address] [phone] Lee Morales [facility] Physical Therapy Start: 09-09-2023 End: 09-09-2023 Patient encounter procedure 09/09/2023 9:00 AM EST Appointment [facility] Physical Therapy [address] [place] [id number] Bridgett Zambrano PTA [facility] Physical Therapy Start: 07-02-2023 End: 07-02-2023 Patient encounter procedure 07/02/2023 Office Visit Obstetrics and Gynecology Maryam Chávez, DO [address] [place] [address] [facility] GYNECOLOG[facility] Start: 05-24-2023 COVID-19 Vaccine ( season) COVID-19 Vaccine ( season) [facility] Start: 04-23-2023 Influenza vaccination [facility] Start: 12-25-2022 End: 12-25-2022 Patient encounter procedure 12/25/2022 Office Visit Obstetrics and Gynecology Rony MaloneMaryam flowers Sheyla, DO [address] [place] [address] [facility] Start: 11-21-2022 End: 11-21-2022 Patient encounter procedure 11/21/2022 Office Visit Obstetrics and Gynecology Tracey Rivera PA-C [address] [place] [address] [facility] Start: 11-12-2022 End: 11-12-2022 Admission to same day surgery center 11/12/2022 Surgery IP Unit Ronyian MaloneEncinasMaryam flowers Sheyla, DO [address] [place] [address] HYSTERECTOMY VAGINAL LAPAROSCOPIC ROBOTIC, POSSIBLE BSO, POSSIBLE LAPAROSCOPIC COLPOPEXY [facility] OR Comment on above: HYSTERECTOMY VAGINAL LAPAROSCOPIC ROBOTI C, POSSIBLE BSO, POSSIBLE LAPAROSCOPIC COLPOPEXY Start: 11-12-2022 End: 11-12-2022 Anesthesia consultation 11/12/2022 Anesthesia Event IP Unit Magali Elmore, [employer] - [employer]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 [address] [facility] [address] [place] [address] [facility] Start: 11-12-2022 End: 11-12-2022 Laps total hysterect 250 gm/< w/rmvl tube/ovary HYSTERECTOMY VAGINAL LAPAROSCOPIC ROBOTIC ASSISTED Dysmenorrhea 11/12/2022 11:10 AM [facility] Start: 11-12-2022 Subsequent hospital visit by physician 11/12/2022 Hospital Encounter IP Unit Maryam Chávez, DO [address] [facility] [address] [facility] OR Start: 11-12-2022 End: 11-12-2022 Laps total hysterect 250 gm/< w/rmvl tube/ovary HYSTERECTOMY VAGINAL LAPAROSCOPIC ROBOTIC ASSISTED Dysmenorrhea 11/12/2022 9:45 AM [facility] Start: 10-30-2022 End: 10-30-2022 Patient encounter procedure 10/30/2022 Office Visit Obstetrics and Gynecology Maryam Chávez, DO [address] [facility] [address] [facility] Start: 10-01-2022 End: 10-01-2022 Patient encounter procedure 10/01/2022 Office Visit Obstetrics and Gynecology Maryam Chávez, DO [address] [facility] [address] [facility] Start: 07-31-2022 End: 07-31-2022 Patient encounter procedure 07/31/2022 Office Visit Obstetrics and Gynecology Maryam Chávez, DO [address] [facility] [address] [facility] Start: 07-31-2022 End: 07-31-2022 Professional / ancillary services management 07/31/2022 Ancillary Procedure Obstetrics and Gynecology [facility] Start: 05-24-2022 Influenza vaccination Flu vaccine (Season Ended) [facility] Start: 05-16-2022 COVID-19 Vaccine (4 - Booster for Pfizer series) COVID-19 Vaccine (4 - Booster for Pfizer series) [facility] Start: 05-16-2022 Hemoglobin A1c measurement A1C test (Diabetic or Prediabetic) [facility] Start: 04-23-2022 Influenza vaccination Flu vaccine (#1) [facility] Start: 02-14-2022 Depression Screen Depression Screen [facility] Start: 02-12-2022 End: 02-12-2022 Patient encounter procedure [facility] Start: 05-26-2021 End: 05-26-2021 Patient encounter procedure 05/26/2021 Appointment Radiology Radiologist, [facility] Start: 05-24-2021 HbA1c (Bld) [Mass fraction] A1C test (Diabetic or Prediabetic) [place], [place] Start: 05-24-2021 Hemoglobin A1c measurement A1C test (Diabetic or Prediabetic) [facility] Work Phone: Start: 05-24-2021 Influenza vaccination Flu vaccine (#1) [facility] Start: 05-22-2021 End: 05-22-2021 Patient encounter procedure 05/22/2021 Appointment Lab [facility] Covid Screening Start: 12-22-2020 A1C test (Diabetic or Prediabetic) A1C test (Diabetic or Prediabetic) [place] Start: 12-22-2020 HbA1c (Bld) [Mass fraction] A1C test (Diabetic or Prediabetic) [place] Start: 12-06-2020 End: 12-06-2020 Office Visit 12/06/2020 Office Visit Obstetrics and Gynecology Maryam Chávez, [address] [place] [address] [facility] Start: 11-23-2020 End: 11-23-2020 Office Visit 11/23/2020 Office Visit Cardiology Silvio Gr MD [address] [place] [phone] [facility] Start: 08-25-2020 End: 08-25-2020 Office Visit 08/25/2020 Office Visit Oncology Tyrone Hwang MD [address] [place] [address] [facility] Start: 07-04-2020 End: 07-04-2020 Visit 07/04/2020 Visit Obstetrics and Gynecology Maryam Chávez DO [address] [place] [address] [phone] [facility] Start: 06-29-2020 End: 06-29-2020 Office Visit 06/29/2020 Office Visit Cardiology Silvio Gr MD [address] [place] [address] [facility] Start: 06-01-2020 End: 06-01-2020 Hospital Encounter [facility] Labor and Delivery Comment on above: SECTION Start: 05-31-2020 End: 05-31-2020 Ancillary Procedure [facility]st[facility] Start: 05-29-2020 Cervical cancer screen Cervical cancer screen [place] Start: 05-29-2020 Screening for malignant neoplasm of cervix Cervical cancer [place] Start: 05-26-2020 End: 05-26-2020 Procedure visit [facility] Start: 05-24-2020 Influenza vaccination [place] Start: 05-23-2020 End: 05-23-2020 Ancillary Procedure [facility] Start: 05-19-2020 End: 05-19-2020 Routine 05/19/2020 Routine Obstetrics and Gynecology [facility] Start: 05-10-2020 End: 05-10-2020 Office Visit 05/10/2020 Office Visit Cardiology Silvio Gr MD [address] [place] [address] [facility] Start: 04-27-2020 End: 04-27-2020 Routine 04/27/2020 Routine Perinatology [facility] Start: 04-04-2020 End: 04-04-2020 Office Visit 04/04/2020 Office Visit Cardiology Silvio Gr MD [address] [place] [address] [phone] [facility] Start: 02-18-2020 End: 02-18-2020 Routine 02/18/2020 Routine Perinatology [facility] Start: 05-24-2019 Influenza vaccination Flu vaccine (#1) [place] Start: 05-29-2018 Chlamydia screen Chlamydia screen [place] Start: 03-26-2018 A1C test (Diabetic or Prediabetic) A1C test (Diabetic or Prediabetic) [place] Start: 03-26-2018 Lipid panel [facility] Start: 03-26-2018 Lipid screen Lipid screen [place] Start: 2012 Diabetic microalbuminuria test Diabetic microalbuminuria test [place] Start: 2012 Diabetic retinal exam Diabetic retinal exam [facility] Start: 2012 Glaucoma screening Diabetic retinal exam [facility] Start: 2012 Urine screening for protein [facility] Start: 2009 HPV vaccine (1 - Female 3-dose series) HPV vaccine (1 - Female 3-dose series) [place] Start: 2006 COVID-19 Vaccine (1) COVID-19 Vaccine (1) [facility] Start: 2006 Depression Screen Depression Screen [facility] Start: 2005 HPV vaccine (1 - 2-dose series) HPV vaccine (1 - 2-dose series) [place] Start: 2005 HPV vaccine (1 - Female 2-dose series) HPV vaccine (1 - Female 2-dose series) [facility] Work Phone: Start: 2004 [object Object] Diabetic foot exam [place] Start: 2004 Diabetic foot examination Diabetic foot exam [facility] Start: 2004 Diabetic retinal exam Diabetic retinal exam [place] Start: 2000 Pneumococcal 0-64 years Vaccine (1 - PCV) Pneumococcal 0-64 years Vaccine (1 - PCV) [facility] Start: 2000 Pneumococcal 0-64 years Vaccine (1 of 1 - PPSV23) Pneumococcal 0-64 years Vaccine (1 of 1 - PPSV23) [place] Start: 2000 Pneumococcal 0-64 years Vaccine (1 of 2 - PCV) Pneumococcal 0-64 years Vaccine (1 of 2 - PCV) RADHA TARANGO [facility] Start: 2000 Pneumococcal 0-64 years Vaccine (1 of 2 - PPSV23) Pneumococcal 0-64 years Vaccine (1 of 2 - PPSV23) [facility] Start: 1999 COVID-19 Vaccine (1) COVID-19 Vaccine (1) [facility] End: 08-05-2020 Anti-Phospholipid Ab Anti-Phospholipid Ab Lab Routine PE (pulmonary thromboembolism) (HCC) Hypercoagulable state (HCC) Smoker 1 Occurrences starting 08/05/2020 until 08/05/2020 [place] Comment on above: 1 Occurrences starting 08/05/2020 until 08/05/2020 Anti-Phospholipid Ab Anti-Phosph olipid Ab Lab Routine PE (pulmonary thromboembolism) (HCC) Hypercoagulable state (HCC) Smoker 08/05/2020 11:17 AM [place], [place] End: 08-05-2020 Antithrombin III Antigen Antithrombin III Antigen Lab Routine PE (pulmonary thromboembolism) (HCC) Hypercoagulable state (HCC) Smoker 1 Occurrences starting 08/05/2020 until 08/05/2020 [place] Comment on above: 1 Occurrences starting 08/05/2020 until 08/05/2020 Antithrombin III Antigen Antithr ombin III Antigen Lab Routine PE (pulmonary thromboembolism) (HCC) Hypercoagulable state (HCC) Smoker 08/05/2020 11:17 AM [place] End: 01-10-2020 Bacteria identified Cx Nom (U) Urine Culture Microbiology STAT One Time for 1 Occurrences starting 01/10/2020 until 01/10/2020 [place] Comment on above: One Time for 1 Occurrences starting 12/22 until 01/10/2020 Bacteria identified Cx Nom (U) [place] End: 02-01-2020 Bacteria identified Cx Nom (U) Urine culture Microbiology Routine One Time for 1 Occurrences starting 02/01/2020 until 02/01/2020 [place] Comment on above: One Time for 1 Occurrences starting 01/21 until 02/01/2020 End: 02-26-2020 Bacteria identified Cx Nom (U) Urine culture Microbiology Routine One Time for 1 Occurrences starting 02/26/2020 until 02/26/2020 [facility] [place] Comment on above: One Time for 1 Occurrences starting 01/2020 until 02/26/2020 End: 07-28-2019 Bacteria identified Cx Nom (U) Urine Culture Microbiology STAT One Time for 1 Occurrences starting 07/28/2019 until 07/28/2019 [facility] [place] Comment on above: One Time for 1 Occurrences starting 01/2019 until 07/28/2019 End: 08-05-2020 Beta-2 Glycoprotein Antibodies Beta-2 Glycoprotein Antibodies Lab Routine PE (pulmonary thromboembolism) (HCC) Hypercoagulable state (HCC) Smoker 1 Occurrences starting 08/05/2020 until 08/05/2020 [facility] [place] Comment on above: 1 Occurrences starting 08/05/2020 until 08/05/2020 Beta-2 Glycoprotein Antibodies Beta-2 Glycoprotein Antibodies Lab Routine PE (pulmonary thromboembolism) (HCC) Hypercoagulable state (HCC) Smoker 08/05/2020 11:17 AM EST [facility] [place] End: 12-05-2021 Blood Gas, Venous Blood Gas, Venous Lab STAT One Time for 1 Occurrences starting 12/05/2021 until 12/05/2021 [facility] Phone: Comment on above: One Time for 1 Occurrences starting 11/21 until 12/05/2021 End: 05-16-2020 C.trachomatis N.gonorrhoeae DNA C.trachomatis N.gonorrhoeae DNA Microbiology Routine Once for 1 Occurrences starting 05/16/2020 until 05/16/2020 [facility] [place] Comment on above: Once for 1 Occurrences starting 05/16/20 20 until 05/16/2020 C.trachomatis N.gonorrhoeae DNA C.trachomatis N.gonorrhoeae DNA Microbiology Routine 05/16/2020 9:55 PM EDT [place] CBC CBC Lab Routine Daily until discontinued starting 06/14/2020, 2 completed [facility] [place] Comment on above: Daily until discontinued starting 2019, 2 completed End: 03-15-2022 CBC W Auto Differential panel - Blood CBC with Auto Differential Lab STAT One Time for 1 Occurrences starting 12/05/2021 until 12/05/2021 [employer] Phone: Comment on above: One Time for 1 Occurrences starting 11/21 until 12/05/2021 End: 12-05-2021 Comprehensive Metabolic Panel w/ Reflex to MG Comprehensive Metabolic Panel w/ Reflex to MG Lab STAT One Time for 1 Occurrences starting 12/05/2021 until 12/05/2021 [employer] Phone: Comment on above: One Time for 1 Occurrences starting 11/21 until 12/05/2021 End: 05-22-2021 COVID-19 COVID-19 Lab Routine Preop testing 1 Occurrences starting 05/22/2021 until 05/22/2021 [employer] Phone: Comment on above: 1 Occurrences starting 05/22/2021 until 05/22/2021 COVID-19 COVID-19 Lab Rou amanda Preop testing 05/22/2021 8:39 AM EDT [employer] Phone: End: 05-16-2020 Culture, Strep B Screen, Vaginal/Rectal Culture, Strep B Screen, Vaginal/Rectal Microbiology Routine Once for 1 Occurrences starting 05/16/2020 until 05/16/2020 [facility] Comment on above: Once for 1 Occurrences starting 05/16/20 20 until 05/16/2020 Culture, Strep B Scr een, Vaginal/Rectal Culture, Strep B Screen, Vaginal/Rectal Microbiology Routine 05/16/2020 9:55 PM EDT [facility] End: 03-29-2020 Culture, Urine Culture, Urine Microbiology Routine One Time for 1 Occurrences starting 03/29/2020 until 03/29/2020 [facility] on above: One Time for 1 Occurrences starting 03/2020 until 03/29/2020 End: 09-24-2020 Culture, Urine Culture, Urine Microbiology STAT One Time for 1 Occurrences starting 09/24/2020 until 09/24/2020 [facility] Comment on above: One Time for 1 Occurrences starting 10/2020 until 09/24/2020 End: 11-23-2023 Culture, Urine [email or web address] Comment on above: One Time for 1 Occurrences starting 10/2023 until 11/23/2023 End: 11-28-2020 Culture, Wound Culture, Wound Microbiology Routine One Time for 1 Occurrences starting 11/28/2020 until 11/28/2020 [employer] Work Phone: Comment on above: One Time for 1 Occurrences starting 04/2021 until 11/28/2020 EKG 12 Lead EKG 12 Lead ECG STAT 05/25/2019 8:08 PM EDT [facility] [place] EKG 12 Lead EKG 12 Lead ECG STAT 12/24/2022 3:23 PM EDT [email or web address] Work Phone: EKG 12 Lead EKG 12 Lead ECG STAT 01/30/2024 5:57 PM EDT [email or web address] End: 06-14-2020 Factor 5 Leiden Factor 5 Leiden Lab Routine One Time for 1 Occurrences starting 06/14/2020 until 06/14/2020 [facility] [place] Comment on above: One Time for 1 Occurrences starting 05/25 until 06/14/2020 End: 08-05-2020 Factor 8 Assay Factor 8 Assay Lab Routine PE (pulmonary thromboembolism) (HCC) Hypercoagulable state (HCC) Smoker 1 Occurrences starting 08/05/2020 until 08/05/2020 [facility] [place] Comment on above: 1 Occurrences starting 08/05/2020 until 08/05/2020 Factor 8 Assay Factor 8 Assay L ab Routine PE (pulmonary thromboembolism) (HCC) Hypercoagulable state (HCC) Smoker 08/05/2020 11:17 AM EST [facility] [place] End: 06-15-2020 Factor V Leiden Mutation Factor V Leiden Mutation Lab Routine Once for 1 Occurrences starting 06/15/2020 until 06/15/2020 [facility] [place] Comment on above: Once for 1 Occurrences starting 06/15/20 20 until 06/15/2020 nonstress test [facility] [place] Comment on above: Daily until discontinued starting 2019 Daily until disconti nued starting 04/08/2020 Daily until disconti nued starting 04/30/2020 End: 05-24-2020 Fructosamine Fructosamine Lab Routine One Time for 1 Occurrences starting 05/24/2020 until 05/24/2020 [place] Comment on above: One Time for 1 Occurrences starting 09/2019 until 05/24/2020 Fructosamine Fructosamine Lab [employer] Label Print 05/24/2020 6:00 AM EDT [place] End: 05-24-2020 HbA1c (Bld) [Mass fraction] Hemoglobin A1c Lab Routine One Time for 1 Occurrences starting 05/24/2020 until 05/24/2020 [place] Comment on above: One Time for 1 Occurrences starting 09/2019 until 05/24/2020 HbA1c (Bld) [Mass fraction] Hemoglobin A1c Lab [employer] Label Print 05/24/2020 6:[place] End: 11-12-2022 INITIATE PACU OXYGEN THERAPY PROTOCOL Initiate PACU Oxygen Therapy Protocol Respiratory Care Routine Continuous until discontinued starting 11/12/2022 RAD[facility] [employer] [facility] Work Phone: Comment on above: Continuous until discontinued starting 0 11/12/2022 End: 08-05-2020 MTHFR Mutation MTHFR Mutation Lab Routine PE (pulmonary thromboembolism) (HCC) Hypercoagulable state (HCC) Smoker 1 Occurrences starting 08/05/2020 until 08/05/2020 [place] Comment on above: 1 Occurrences starting 08/05/2020 until 08/05/2020 MTHFR Mutation MTHFR Mutation L ab Routine PE (pulmonary thromboembolism) (HCC) Hypercoagulable state (HCC) Smoker 08/05/2020 11:17 AM EST [place] Nonrebreather mask oxygen [place], [place] Comment on above: As directed - RT (PRN) until discontinue d starting 02/26/2020 As directed - RT (CT N) until discontinued starting 04/07/2020 As directed - RT (CT N) until discontinued starting 05/22/2020 As directed - RT (CT N) until discontinued starting 04/29/2020 Oxygen therapy [[facility] Data Set] [place] Comment on above: Daily until discontinued starting 2019 Daily until disconti nued starting 06/13/2020 Daily until disconti nued starting 03/20/2021 Oxygen therapy [[facility] Data Set] Initiate Oxygen Therapy Protocol Respiratory Care Routine As Needed until discontinued starting 11/12/2022 RADHA TARANGO [employer] Phone: Comment on above: As Needed until discontinued starting End: 06-13-2020 Path Review, Smear Path Review, Smear Lab Routine Once for 1 Occurrences starting 06/13/2020 until 06/13/2020 [facility] [place] Comment on above: Once for 1 Occurrences starting 06/13/20 until 06/13/2020 Path Review, Smear Path Review, Smear Lab Routine 06/13/2020 8:18 PM EDT [facility] [place] End: 03-29-2020 POCT glucose POCT glucose Point of Care Testing Routine One Time for 1 Occurrences starting 03/29/2020 until 03/29/2020 [facility] [place] Comment on above: One Time for 1 Occurrences starting 03/2020 until 03/29/2020 POCT Glucose [facility] Comment on above: TID PC until discontinued starting 05/23 As Needed until disc ontinued starting 03/20/2021 End: 09-24-2020 , Urine , Urine Lab STAT One Time for 1 Occurrences starting 09/24/2020 until 09/24/2020 [facility] [place] Comment on above: One Time for 1 Occurrences starting 10/2020 until 09/24/2020 End: 12-05-2021 , Urine , Urine Lab STAT One Time for 1 Occurrences starting 12/05/2021 until 12/05/2021 [facility] Phone: Comment on above: One Time for 1 Occurrences starting 11/21 until 12/05/2021 End: 08-05-2020 Protein C Functional Protein C Functional Lab Routine PE (pulmonary thromboembolism) (HCC) Hypercoagulable state (HCC) Smoker 1 Occurrences starting 08/05/2020 until 08/05/2020 [facility] [place] Comment on above: 1 Occurrences starting 08/05/2020 until 08/05/2020 Protein C Functional Protein C F unctional Lab Routine PE (pulmonary thromboembolism) (HCC) Hypercoagulable state (HCC) Smoker 08/05/2020 11:17 AM [place] End: 08-05-2020 Protein S Functional Protein S Functional Lab Routine PE (pulmonary thromboembolism) (HCC) Hypercoagulable state (HCC) Smoker 1 Occurrences starting 08/05/2020 until 08/05/2020 [place] Comment on above: 1 Occurrences starting 08/05/2020 until 08/05/2020 Protein S Functional Protein S F unctional Lab Routine PE (pulmonary thromboembolism) (HCC) Hypercoagulable state (HCC) Smoker 08/05/2020 11:17 AM [place] End: 08-05-2020 Prothrombin Gene Mutation Prothrombin Gene Mutation Lab Routine PE (pulmonary thromboembolism) (HCC) Hypercoagulable state (HCC) Smoker 1 Occurrences starting 08/05/2020 until 08/05/2020 [place] Comment on above: 1 Occurrences starting 08/05/2020 until 08/05/2020 Prothrombin Gene Mutation Prothr ombin Gene Mutation Lab Routine PE (pulmonary thromboembolism) (HCC) Hypercoagulable state (HCC) Smoker 08/05/2020 11:17 AM [place] End: 05-22-2020 RHOGAM RHOGAM Blood Bank Routine One Time for 1 Occurrences starting 05/22/2020 until 05/22/2020 [place] Comment on above: One Time for 1 Occurrences starting 04/25 until 05/22/2020 Spirometry panel Incentive ezekiel metry Respiratory Care Routine Every 2hr while awake until discontinued starting 05/22/2020 [place] Comment on above: Every 2hr while awake until discontinued starting 05/22/2020 Surgical Path[place] Comment on above: Release Upon Ordering for 1 Occurrences starting 05/22/2020 Release Upon Orderin g for 1 Occurrences starting 03/20/2021 Surgical Pathology Surgical Path ology Lab Routine Dysmenorrhea Release Upon Ordering for 1 Occurrences starting 11/12/2022 RADHA CASTANEDAGift Card Impressions [facility] [employer] Work Phone: Comment on above: Release Upon Ordering for 1 Occurrences starting 11/12/2022 End: 02-26-2020 SVE SVE Point of Care Testing Routine One Time for 1 Occurrences starting 02/26/2020 until 02/26/2020 [place] Comment on above: One Time for 1 Occurrences starting 01/2020 until 02/26/2020 End: 04-07-2020 SVE SVE Point of Care Testing Routine One Time for 1 Occurrences starting 04/07/2020 until 04/07/2020 [facility] Comment on above: One Time for 1 Occurrences starting 03/23 until 04/07/2020 End: 04-29-2020 SVE SVE Point of Care Testing Routine One Time for 1 Occurrences starting 04/29/2020 until 04/29/2020 [facility] Comment on above: One Time for 1 Occurrences starting 03/2020 until 04/29/2020 End: 05-16-2020 Trichomonas Vaginali, Molecular Trichomonas Vaginali, Molecular Microbiology Routine Once for 1 Occurrences starting 05/16/2020 until 05/16/2020 [facility] Comment on above: Once for 1 Occurrences starting 05/16/20 until 05/16/2020 Trichomonas Vaginali , Molecular Trichomonas Vaginali, Molecular Microbiology Routine 05/16/2020 10:07 PM EDT [facility], [place] End: 02-01-2020 Urinalysis Urinalysis Lab Routine One Time for 1 Occurrences starting 02/01/2020 until 02/01/2020 [place] Comment on above: One Time for 1 Occurrences starting 01/21 until 02/01/2020 End: 12-05-2021 Urinalysis with Microscopic Urinalysis with Microscopic Lab STAT One Time for 1 Occurrences starting 12/05/2021 until 12/05/2021 [facility] Comment on above: One Time for 1 Occurrences starting 11/21 until 12/05/2021 End: 09-24-2020 Urinalysis, reflex to microscopic Urinalysis, reflex to microscopic Lab STAT One Time for 1 Occurrences starting 09/24/2020 until 09/24/2020 [place] Comment on above: One Time for 1 Occurrences starting 10/2020 until 09/24/2020 End: 02-01-2020 US GALLBLADDER RUQ US GALLBLADDER RUQ Imaging Routine Once for 1 Occurrences starting 02/01/2020 until 02/01/2020 [place] Comment on above: Once for 1 Occurrences starting 02/01/20 20 until 02/01/2020 US NON OB TRANSVAGINAL US NON OB TRANSVAGINAL Imaging STAT 11/01/2022 4:18 PM EST RADHA SUKHDEEP [facility] Work Phone: End: 02-01-2020 US OB 14 PLUS WEEKS SINGLE OR FIRST GESTATION US OB 14 PLUS WEEKS SINGLE OR FIRST GESTATION Imaging STAT Once for 1 Occurrences starting 02/01/2020 until 02/01/2020 [place] Comment on above: Once for 1 Occurrences starting 02/01/20 20 until 02/01/2020 US OB 14 PLUS WEEKS SINGLE OR FIRST GESTATION US OB 14 PLUS WEEKS SINGLE OR FIRST GESTATION Imaging STAT 02/01/2020 9:25 PM EDT [place] Immunizations Immunization Date Immunization Notes Care Provider [facility] 03-21-2022 SARS-CoV-2 mRNA (ofgdibpezer-cbcl-tfycu se) vaccine [facility] 08-13-2021 SARS-CoV-2 (COVID-19 ) mRNA BNT-162b2 vax [facility] 07-18-2021 SARS-CoV-2 (COVID-19 ) mRNA BNT-162b2 vax [facility] 05-24-2020 tetanus toxoid, redu arthur diphtheria toxoid, and acellular pertussis vaccine, adsorbed [facility] 05-22-2020 diphtheria, tetanus toxoids and acellular pertussis vaccine, unspecified formulation [facility] [place] 05-22-2020 measles, mumps and rubella virus vaccine [facility] 10-21-2017 tetanus toxoid, redu arthur diphtheria toxoid, and acellular pertussis vaccine, adsorbed [facility] 03-24-2016 measles, mumps and rubella virus vaccine [facility] Payers Date Payer Category Payer Private Health Insurance 2019 Unknown 2019 Private Health Insurance [facility] PLU [id number] 2019-Present [phone] [address] [place] [address] [id number] 2019 Private Health Insurance [facility] PLU [id number] 2019-Present [phone] [address] [place] [address] [id number] 2016 Unknown [facility] xxxxxxxxxxxx 2016-Present [phone] [address] [place] [address] xxxxxxxxxxxx [id number] 2016 Unknown [facility] PL[facility] [id number] 2016-Present [phone] [address] [place] [address] [id number] 2015 Private Health Insurance xxxxxxxxx [id number] 1994 Unknown [id number] 2.16.840.1.172777.3.579.2 .196 1994 Unknown [id number] 2.16.840.1.648483.3.579.2 .593 1994 Unknown [id number] 2.16.840.1.270310.3.579.2 .593 1994 Unknown [id number] 2.16.840.1.744189.3.579.2 .593 1994 Unknown [id number] 2.16.840.1.930785.3.579.2 .727 1994 Unknown [id number] 2.16.840.1.657123.3.579.2 .727 1994 Unknown [id number] 2.16.840.1.442347.3.579.2 .727 1994 Unknown [id number] 2.16.840.1.957391.3.579.2 .175 1994 Unknown [id number] 2.16.840.1.635242.3.579.2 .196 1994 Unknown [id number] 2.16.840.1.205121.3.579.2 .196 1994 Unknown [id number] 2.16.840.1.124875.3.579.2 .196 1994 Unknown [id number] 2.16.840.1.383386.3.579.2 .196 1994 Unknown [id number] 2.16.840.1.044997.3.579.2 .196 1994 Unknown [id number] 2.16.840.1.612821.3.579.2 .196 1994 Unknown [id number] 2.16.840.1.904668.3.579.2 .196 1994 Unknown [id number] 2.16.840.1.724958.3.579.2 .196 1994 Unknown [id number] 2.16.840.1.254271.3.579.2 .196 1994 Unknown [id number] 2.16.840.1.972512.3.579.2 .173 1994 Unknown [id number] 2.16.840.1.604662.3.579.2 .173 1994 Unknown [id number] 2.16.840.1.353976.3.579.2 .173 1994 Unknown [id number] 2.16.840.1.846430.3.579.2 .173 1994 Unknown [id number] 2.16.840.1.484998.3.579.2 .173 1994 Unknown [id number] 2.16.840.1.497115.3.579.2 .173 1994 Unknown [id number] 2.16.840.1.212684.3.579.2 .173 1994 Unknown [id number] 2.16.840.1.480174.3.579.2 .173 1994 Unknown [id number] 2.16.840.1.376829.3.579.2 .173 1994 Unknown [id number] 2.16.840.1.648456.3.579.2 .173 1994 Unknown [id number] 2.16.840.1.057534.3.579.2 .173 1994 Unknown [id number] 2.16.840.1.704489.3.579.2 .173 1994 Unknown [id number] 2.16.840.1.464629.3.579.2 .173 1994 Unknown [id number] 2.16.840.1.421247.3.579.2 .173 1994 Unknown [id number] 2.16.840.1.650488.3.579.2 .173 1994 Unknown [id number] 1995 Unknown [id number] 1994 Unknown [id number] 1994 Unknown [id number] .[id number] 1994 Unknown [id number] .[id number] 1994 Unknown [id number] .173 1994 Unknown [id number] .[id number] 1959 Unknown [id number] Social History Date Type Detail Facility Start: 05-19-2019 End: 12-24-2023 Tobacco smoking status NHIS Current every day smoker [place], [place] History of tobacco use Cigarette Smoker [facility] [place] Start: 05-19-2019 End: 01-30-2024 Cigarettes smoked current (pack per day) - Reported [place] Start: 05-19-2019 End: 01-30-2024 Alcohol intake No [facility] Start: 05-13-2017 Tobacco Comment Trying to quit -patient refuses referral wants to quit on own [place], [place] Start: 03-10-2017 Alcohol Comment socially [place], [place] Sex Assigned At Not on file [place] Start: 01-10-2020 End: 03-23-2023 Alcohol intake Current non-drinker of alcohol (finding) [place] Start: 09-16-2019 [place], [place] Exposure to SARS-CoV -2 (event) Unable to assess [place] Start: 02-18-2020 End: 07-31-2022 Tobacco Comment 4-5cigs/day 02/18/2020 [place] Start: 04-04-2020 End: 12-24-2023 Tobacco use and exposure Never used [place] Start: 11-05-2021 End: 12-24-2022 Exposure to SARS-CoV-2 (event) Not sure [place], [place] Start: 1995 Sex Assigned At Female [facility] Work Phone: Exposure to SARS-CoV -2 (event) Yes [facility] Start: 10-05-2022 End: 02-18-2023 History SDOH Alcohol Frequency 1 [facility] Work Phone: Start: 10-05-2022 End: 02-18-2023 History SDOH Alcohol Std Drinks 0 [email or web address] Work Phone: Tobacco smoking status No Smokin g Status Entered [facility] [place] Start: 12-04-2022 Tobacco smoking status Heavy t obacco smoker (finding) [facility] [place] Tobacco smoking status Never [facility] [place] Start: 08-03-2023 End: 02-05-2024 Alcohol intake Current drinker of alcohol (finding) [email or web address] How often to you hav e a drink containing alcohol? Never [email or web address] Start: 03-16-2021 Gender identity Identifies as female gender (finding) [email or web address] Start: 03-16-2021 Sexual orientation Heterosexual (mendez ornelas) [email or web address] Has the [employer], or [employer] threatened to shut off services in your home in past 12Mo No [email or web address] How often to you hav e a drink containing alcohol? Monthly or less [email or web address] How many standard dr inks containing alcohol do you have on a typical day? 1 or 2 [email or web address] (I/We) worried wheth er (my/our) food would run out before (I/we) got money to buy more. Never true [email or web address] Medical Equipment Procedure Code Equipment Code Equipment Origin al Text Equipment Identifier Dates TEST five times a day [id number] Start: 10-10-2017 End: 05-25-2019 use 1 TEST STRIP to TEST BLOOD SUGAR four times a day [id number] Start: 11-27-2019 End: 05-24-2020 use 1 LANCET to TEST BLOOD SUGAR four times a day [id number] Start: 11-27-2019 End: 05-24-2020 USE 1 THREE TIME S DAILY [id number] Start: 01-12-2020 End: 05-24-2020 TRUE METRIX BLOO D GLUCOSE TEST strip [id number] Start: 01-20-2022 Functional Status Date Assessment Result Facility 12-04-2022 Functional Status N/A [facility] Clinical Notes 03-20-2021 to 01-30-2024 Discharge InstructionsAttachmentsDischarge InstructionsAttachmentsDischarge InstructionsBridgett Gloria PTA - 09/04/2023 8:45 AM ESTDischarge InstructionsAttachmentsDischarge Instructions Note Date & Type Note Facility 01-30-2024 Hospital Discharge instructions Charly Seay DO - 01/30/2024 7:45 PM EDT You were evaluated in the emergency department for chest pain. Your lab work did not reveal any acute abnormalities except for a slightly elevated glucose. CT of your chest did not reveal any acute abnormalities. Please follow-up with your primary care physician. Please return to the emergency department for any worsening symptoms, questions or concerns. The following attachments cannot be sent through Care Everywhere.Chest Pain ([place])Chest Pain: Musculoskeletal ([place])documented in this encounter [facility] 01-04-2024 Hospital Discharge instructions Gloria Vicente MD - 01/04/2024 9:39 PM EDT Avoid drinking alcohol or drinks that have caffeine it. Drink plenty of water or fluids like Gatorade. Avoid eating spicy foods. You should eat bland foods like bananas, rice, apple sauce and toast / crackers. Using Pepto-Bismol may be beneficial, but long-term use can turn your stools black. PLEASE RETURN TO THE EMERGENCY DEPARTMENT IMMEDIATELY for worsening symptoms, increase in the amount of diarrhea you are having, abdominal pain, blood in your stool, vomiting up blood, persistent nausea and/or vomiting, or if you develop any concerning symptoms such as: high fever not relieved by acetaminophen (Tylenol) and/or ibuprofen (Motrin / Advil), chills, shortness of breath, chest pain, feeling of your heart fluttering or racing, numbness, loss of consciousness, weakness or tingling in the arms or legs or change in color of the extremities, changes in mental status, persistent headache, blurry vision, loss of bladder / bowel control, unable to follow up with your physician, or other any other care or concern. The following attachments cannot be sent through Care Everywhere.Viral Infections ([place])documented in this encounter [facility] 11-24-2023 Hospital Discharge instructions Samy Walker MD - 11/24/2023 12:02 AM EST The cause of your pain was not identified. Your evaluation, including imaging, was reassuring. I suspect scar tissue, possibly related to prior gynecologic surgeries, may be the cause. Please follow-up with both your AUTOMATIC TIRE TESTER and your tugboat mate. Return to the ED for worsening pain, continued vomiting or any other concerns. Use caution while taking [place] (hydrocodone). It may cause drowsiness. Do not drive or perform dangerous activity while taking this medication and do not take with alcohol or other sedatives. The following attachments cannot be sent through Care Everywhere.Abdominal Pain ([place])documented in this encounter [facility] 09-04-2023 History of Present illness Narrative [facility] Inpatient/Observation/Outpatient Rehabilitation Date: 09/04/2023 Patient Name: Dorota Swanson [] Inpatient Acute/Observation [x] Outpatient : 1995 10/04/23 Plan of Care/Recert ends [x] Pt cancelled due to: [] No Reason Given [x] Sick/ill [] Other: Therapist/Dirt Contractor will attempt to see this patient, at our earliest opportunity. Bridgett Zambrano, MEDIA CENTER ASSISTANT Date: 09/04/2023 documented in this encounter [facility] 03-23-2023 Hospital Discharge instructions Nazia Whitlock MD - 03/23/2023 7:16 PM EDT Make sure to drink plenty of water. Use Phenergan as needed for nausea or vomiting. Follow-up with primary care provider for reevaluation. Please return immediately should you develop any worsening symptoms or any acute concerns. The following attachments cannot be sent through Care Everywhere.Fainting ([place])documented in this encounter [facility] 02-18-2023 Hospital Discharge instructions Samy Walker MD - 02/18/2023 10:12 PM EDT Return to the emergency department for development of vomiting, fever, worsened abdominal pain, blood sugar persistently running greater than 350 or any other concerns. I recommend you discontinue use of your prednisone. Your blood pressure is elevated today. This should be discussed with your PCP at your next visit. The following attachments cannot be sent through Care Everywhere.Diarrhea ([place])Hyperglycemia: General Info ([place])documented in this encounter [facility] Work Phone: 12-26-2022 Note OPERATIVE NOTE OPERATION DATE: 12/26/2022 PREOPERATIVE DIAGNOSIS: Dysphagia, frequent loose stools, abdominal pain. POSTOPERATIVE DIAGNOSIS: Small sliding type hiatal hernia, distal esophagitis and bile reflux, normal colon. PROCEDURE: EGD and colonoscopy to cecum. SURGEON: Ortiz Gardner M.D. ANESTHESIA: Monitored anesthesia care. ESTIMATED BLOOD LOSS: Zero. INDICATIONS AND CONSENT: Patient is a 27-year-old female with history of postprandial loose stools and intermittent crampy mid-abdominal pain. She has also had dysphagia for solid foods and pills. Indications, risks, benefits, alternatives of proceeding with EGD and colonoscopy were explained extensively to the patient, including the risks of bleeding, aspiration, esophageal/gastric/duodenal or colonic perforation or anesthetic complications. All of her questions were answered. Informed consent was obtained. PROCEDURE: Patient brought to the operating room, placed in the left lateral decubitus position. Monitored anesthesia care was provided. A bite block was placed in the patient's mouth. Scope was inserted into the oropharynx. Under direct visualization, it was advanced into the esophagus, past the cricopharyngeus, down to the stomach. The stomach was insufflated with air. The pylorus was traversed down to the descending portion of the duodenum. There was no evidence of duodenitis or ulceration. There was no scarring within the pyloric channel. The scope was pulled back into the stomach. There was a moderate amount of bile throughout the stomach that was refluxing into the esophagus. The GE junction was noted at approximately 39 cm. There was mild distal esophagitis as well as a small sliding type hiatal hernia. No other gastric mucosal abnormalities. The remainder of the esophagus was unremarkable. The scope was then withdrawn. The patient was then positioned for colonoscopy. Rectal exam was performed which showed no masses or blood. The scope was inserted into the anal canal. Under direct visualization, it was advanced. With the aid of abdominal compression, it was advanced to the cecum where cecal markings were clearly identified. Upon withdrawal of the scope, mucosal surfaces were carefully examined. There were no mass lesions or polyps. No inflammatory changes or ulcerations. There was no significant diverticulosis. There was bile noted to be throughout the colon. There was no significant hemorrhoidal disease. The scope was then withdrawn. Patient tolerated procedure well, was sent to recovery room in good condition. CC: Yossi Wells M.D. [facility] 12-24-2022 Hospital Discharge instructions Anahi Phelps DO - 12/24/2022 5:01 PM EDT Follow-up with your doctor next week if your symptoms continue. Otherwise, use your albuterol inhaler as needed given your underlying history of asthma. The following attachments cannot be sent through Care Everywhere.Chest Pain ([place])documented in this encounter [facility] [employer] Work Phone: 12-04-2022 Note Chief Complaint consultation for loose stools and diarrhea HPI Staff 27 year old female presents on consultation from Dr. Wells for dysphagia and loose stools. Reports daily diarrhea/loose stools shortly after eating. She has defecation urgency and crampy abdominal pain. Tried Imodium in the past with minimal relief. Denies rectal pain or bleeding. Intermittent morning nausea, no vomiting. No unexplained weight loss. No difficulty swallowing but feels food gets stuck; worse with meat. Taking Omeprazole daily for greater than 2 years. Never had EGD or colonoscopy in the past. No known family history of colon cancer or IBD. History of Present Illness 27 yo female with h/o htn, DMII, h/o PE, GERD, LINA, referred for dysphagia and intermittent loose stools. patient reports 6 month h/o frequent loose stools, mostly occur shortly after eating or drinking; some associated crampy mid abd pain, no N/V; no blood in stools; no wt loss; also feels food get stuck in mid esophagus at times, worse over the last month; usually pills or meat; eventually goes down; GERD symptoms controlled with Omeprazole, has been on for last 2 years; abdominal operations significant for cholecystectomy, x 3, ALONSO; denies asa or NSAID use; no SBE prophylaxis; no previous endoscopy; no fmhx of GI malignancy or IBD; smokes daily. Review of Systems PHQ Score Initial Depression Screen Score: 0 ROS - Provider Constitutional: no fever, no sweats, no weight loss. Eyes: yes glasses, no blurred vision, no visual loss. ENMT: no dentures, no hoarseness, yes swallowing difficulties, no hearing loss, no ear infection(s), no nose bleeds. Cardiovascular: normal blood pressure, no chest pain, regular heartbeat, no heart murmur. Respiratory: no shortness of breath, no cough, no asthma, no wheezing. Gastrointestinal: no nausea, no vomiting, yes diarrhea, no constipation, no blood in stool, no change in bowel habits, no abdominal pain, no hepatitis. Genitourinary: no kidney stones, no urine infection, no dysuria. Musculoskeletal: no pain, no weakness. Skin: no changing moles, no rash, no skin lumps. Neurologic: no seizures, no epilepsy, no headache. Psychiatric: no emotional or psychiatric problem. Heme/Lymph: no bleeding problems, no anemia, no blood clots, no transfusions. Allergy/Immunologic: no swollen lymph nodes/glands, no IV drug abuse. Other: Additional ROS info: Except as noted in the above Review of Systems and in the History of Present Illness, all other systems have been reviewed and are negative or noncontributory. Physical Exam Vitals & Measurements HR: 80(Peripheral) RR: 16 BP: 126/82 HT: 68 in HT: 172.72 cm WT: 111 kg WT: 244.2 lb BMI: 37.21 HEENT: normal conjunctiva, sclera clear, no scleral icterus, EOM intact, PERRLA, oral mucosa moist without lesions. Neck: trachea midline, no mass, symmetric, no thyromegaly or nodules, no adenopathy Respiratory: lungs CTA, respirations non labored. Cardiovascular: regular rate and rhythm, no murmur, no pedal edema or varicosities. Gastrointestinal: obese, soft, non distended, no tenderness, no masses, no palpable hernias, diastasis recti no, no hepatosplenomegaly; normal bs Lymphatic: no cervical adenopathy, nosupraclavicular adenopathy Musculoskeletal: normal gait, digits and nails without infection, nodes, cyanosis, clubbing. Skin: no rashes, no lesions, no ulcers, no subcutaneous nodules, induration. Psychiatric/Neuro: oriented to time, place, person, judgement normal, affect appropriate for age, insight intact, no focal deficits. Tests: review of old records completed, Discussed surgical options, risks, and possible complications with patient. Assessment/Plan 1. Postprandial diarrhea (K52.9: Noninfective gastroenteritis and colitis, unspecified) plan EGD and colonoscopy under anesthesia for further evaluation, informed consent obtained. 2. Frequent loose stools (R19.7: Diarrhea, unspecified) see # 1 3. Dysphagia (R13.10: Dysphagia, unspecified) see # 1 4. Abdominal pain, periumbilical (R10.33: Periumbilical pain) see # 1 Follow-up No qualifying data available Problem List/Past Medical History Ongoing Abdominal pain, periumbilical Acute pancreatitis Bilateral lower extremity edema BMI 37.0-37.9, adult Cholangiectasis Cyst of right ovary Depression Diabetes Diarrhea Dysphagia Endometriosis (clinical) Essential hypertension Factor V Leiden Frequent loose stools LINA (generalized anxiety disorder) GERD (gastroesophageal reflux disease) Hiatal hernia History of pulmonary embolism Insomnia Left ventricular hypertrophy Morbid obesity Postprandial diarrhea Prolapsed lumbar intervertebral disc Smoker Historical Acute pulmonary embolism Dyspnea Smoker Procedure/Surgical History section (2018), section (2016), Bilateral oophorectomy, section, Cholecystectomy, Extraction of wisdom tooth, Laparoscopic hysterectomy, (more content not included)... [facility] Comment on above: Result Comment: Elec tronically Signed By: KENDRA GREWAL, Ortiz Charles\Date and Time Signed: 12/04/22 14:11 EDT 11-12-2022 History of Present illness Narrative Pt verbalized readiness to go home. Discharge instructions given to pt and . Verbalized understanding and all questions answered at this time. Discharge Criteria Inpatients must meet Criteria 1 through 7. All other patients are either YES or N/A. If a NO is chosen then Anesthesia or Surgeon must be notified. 1. Minimum 30 minutes after last dose of sedative medication, minimum 120 minutes after last dose of reversal agent. Yes 2. Systolic BP stable within 20 mmHg for 30 minutes & systolic BP between 90 & 180 or within 10 mmHg of baseline. Yes 3. Pulse between 60 and 100 or within 10 bpm of baseline. Yes 4. Spontaneous respiratory rate >/= 10 per minute. Yes 5. SaO2 >/= 95 or >/= baseline. Yes 6. Able to cough and swallow or return to baseline function. Yes 7. Alert and oriented or return to baseline mental status. Yes 8. Demonstrates controlled, coordinated movements, ambulates with steady gait, or return to baseline activity function. Yes 9. Minimal or no pain or nausea, or at a level tolerable and acceptable to patient. Yes 10. Takes and retains oral fluids as allowed. Yes 11. Procedural / perioperative site stable. Minimal or no bleeding. Yes 12. If GI endoscopy procedure, minimal or no abdominal distention or passing flatus. N/A 13. Written discharge instructions and emergency telephone number provided. Yes 14. Accompanied by a responsible adult. Yes Chart reviewed and discussed with PAT. GUARDADO to proceed with anesthesia. No pre-op EKG needed. Patient instructed on the pre-operative, intra-operative, and post-operative process. Patient instructed on NPO status. Medication instructions and pre operative instruction sheet reviewed with the patient. CHG skin prep instructions reviewed with patient. Instructed pt to take prilosec with a small sip of water prior to arriving to the hospital the day of surgery. Spoke to Sangita GALLO. Pre-op EKG not needed. documented in this encounter [facility] [employer] Work Phone: 11-12-2022 Hospital Discharge instructions Aliyah Rangel RN - 11/12/2022 11:58 AM EST SAME DAY SURGERY DISCHARGE INSTRUCTIONS 1. Do not drive or operate hazardous machinery for 24 hours. 2. Do not make important personal or business decisions for 24 hours. 3. Do not drink alcoholic beverages for 24 hours. 4. Do not smoke tobacco products for 24 hours. 5. Patient should not be left alone for 12-24 hours following surgical procedure. 6. Eat light foods (Jell-O, soups, etc....) and drink plenty of fluids (water, Sprite, etc...) up to 8 glasses per day, as you can tolerate. 7. If your bandages become soaked with bright red blood, place another dressing pad over your bandages. (DO NOT remove original bandage.) Call your surgeon for further instructions. A small amount of bright red blood is to be expected. 8. Wash hands before and after incision care. It is important to practice good personal hygiene during the post op period. 9. You may remove your dressing the morning following surgery; leave the steri-strips in place, they will fall off on their own. If they have not fallen off in 7-10 days, please remove them. 10. If no drainage from incisions you may shower. 11. Limit your activities for 24 hours. Do not engage in heavy work until your surgeon gives you permission. DO NOT lift anything heavier than 10 pounds. You may go up & down stairs and do any activity that can be done comfortably. 12. Report the following signs or any questions regarding your physical condition to your surgeon immediately: Excessive swelling of, or around the wound area. Redness or pus-like drainage Temperature of 100 degrees (F) or above. Excessive pain. If unable to urinate 4 hours after surgery. If bleeding at surgery site continues after 5-10 minutes of pressure. 13. Pain Control: Take pain meds as prescribed. You may use over the counter meds like Acetaminophen or Ibuprofen if not part of the meds already prescribed. While on narcotic pain meds DO NOT drive, operate machinery or make business decisions. 14. Try to avoid constipation (no bowel movement) by using over the counter Colace once or twice daily and increasing your fluid intake. Please call if no bowel movement after increasing fluid intake, use of Milk of Magnesia, Pericolace (laxative) or Dulcolax suppositories. 15. No sexual activity, tampons, douches, sitting in hot tubs/saunas or swimming in pools/ponds for 6 weeks or until cleared by your surgeon. 16. Call your surgeon for any questions regarding your surgery. 17. Call for an appointment to see GOPAL Swanson in [address] Figueredo -- [place] office [phone] [place] office [phone] documented in this encounter [employer] Phone: 11-01-2022 Hospital Discharge instructions Ricardo Garcia PA-C - 11/01/2022 4:48 PM EST Follow-up with AUTOMATIC TIRE TESTER as scheduled. Take Zofran for nausea. Take [place] for pain as directed. No driving or alcohol or Tylenol with [place]. Promptly return to emergency department for new, changing, worsening of symptoms or other concerns. The following attachments cannot be sent through Care Everywhere.Chronic Pelvic Pain: Female ([place])documented in this encounter [employer] Phone: 09-28-2022 Hospital Discharge instructions Oliver Arenas MD - 09/28/2022 1:11 AM EST Please follow-up with your AUTOMATIC TIRE TESTER and your primary care physician. Return to the ER if you have any more pain, fever, chills, sweats, nausea vomiting is hard to treat. Take the medication as prescribed. The following attachments cannot be sent through Care Everywhere.Endometriosis ([place])Abdominal Pain: Frequent ([place])documented in this encounter [employer] Phone: 07-08-2022 Hospital Discharge instructions Ricardo Garcia PA-C - 07/08/2022 7:32 PM EDT Follow-up with primary care doctor 7 to 10 days for reevaluation. Start steroids and antibiotics tomorrow as you have already been given a dose here in the emergency department. Promptly return to emergency department for new, changing, worsening of symptoms or other concerns. documented in this encounter [employer] [facility] Phone: 01-04-2022 Hospital Discharge instructions Renard Watkins MD - 01/04/2022 Please continue use ice ibuprofen Tylenol as needed. The following attachments cannot be sent through Care Everywhere.Musculoskeletal Pain ([place])documented in this encounter [employer] Phone: 03-20-2021 History of Present illness Narrative Pt verbalized readiness to go home. Discharge instructions given to pt and . Verbalized understanding and all questions answered at this time. Discharge Criteria Inpatients must meet Criteria 1 through 7. All other patients are either YES or N/A. If a NO is chosen then Anesthesia or Surgeon must be notified. 1. Minimum 30 minutes after last dose of sedative medication, minimum 120 minutes after last dose of reversal agent. Yes 2. Systolic BP stable within 20 mmHg for 30 minutes & systolic BP between 90 & 180 or within 10 mmHg of baseline. Yes 3. Pulse between 60 and 100 or within 10 bpm of baseline. Yes 4. Spontaneous respiratory rate >/= 10 per minute. Yes 5. SaO2 >/= 95 or >/= baseline. Yes 6. Able to cough and swallow or return to baseline function. Yes 7. Alert and oriented or return to baseline mental status. Yes 8. Demonstrates controlled, coordinated movements, ambulates with steady gait, or return to baseline activity function. Yes 9. Minimal or no pain or nausea, or at a level tolerable and acceptable to patient. Yes 10. Takes and retains oral fluids as allowed. Yes 11. Procedural / perioperative site stable. Minimal or no bleeding. Yes 12. If GI endoscopy procedure, minimal or no abdominal distention or passing flatus. N/A 13. Written discharge instructions and emergency telephone number provided. Yes 14. Accompanied by a responsible adult. Yes Patient instructed on the pre-operative, intra-operative, and post-operative process. Patient instructed on NPO status. Medication instructions and Pre operative instruction sheet reviewed over the phone. documented in this encounter [employer] Phone: 03-20-2021 Hospital Discharge instructions Aliyah Rangel RN - 03/20/2021 SAME DAY SURGERY DISCHARGE INSTRUCTIONS 1. Do not drive or operate hazardous machinery for 24 hours. 2. Do not make important personal or business decisions for 24 hours. 3. Do not drink alcoholic beverages for 24 hours. 4. Do not smoke tobacco products for 24 hours. 5. Eat light foods (Jell-O, soups, etc....) and drink plenty of fluids (water, Sprite, etc...) up to 8 glasses per day, as you can tolerate. 6. Limit your activities for 24 hours. Do not engage in heavy work until your surgeon gives you permission. 7. Notify your doctor immediately of any of the following: Excessive swelling of, or around the wound area. Redness. Temperature of 100 degrees (F) or above. Excessive pain. Unable to urinate or empty bladder 4-6 hours after surgery. Excessive bleeding at incision site. 8. Call your surgeon for any questions regarding your surgery. POST-OPERATIVE INSTRUCTIONS Activity as tolerated; may shower and change dressings as needed. Pain medication to be taken as directed for discomfort. No sexual relations, douches, tampons, tub baths, swimming in ponds/pools, or hot tubs for 2 weeks or until seen by the doctor for your follow-up appointment. May have some vaginal drainage for 1-2 weeks, call if excessive. Call the office at [phone] ([place]) [phone] ([place]) for an appointment in 2 weeks. documented in this encounter [employer] Phone: Evaluation + Plan note Future Appointments Appointment Date:12/04/2022 01:20:00 PM Scheduled Provider:Ortiz GARDNER MD Location:[facility] Appointment Type:[address] General Surgery [place] Evaluation note Diagnosis Post-op pain- Primary Other acute postoperative pain Menorrhagia with regular cycle Excessive or frequent menstruation documented in this encounter [employer] Phone: [email or web address] note* Diagnosis Preop testing Preoperative examination, unspecified documented in this encounter [employer] Phone: [email or web address] note* Diagnosis Abdominal pain, epigastric documented in this encounter [employer] Phone: [email or web address] note* Diagnosis Acute bronchitis, unspecified organism- Primary documented in this encounter [employer] Phone: [email or web address] note* Diagnosis Cough- Primary Acute upper respiratory infection Acute upper respiratory infections of unspecified site Encounter for laboratory testing for COVID-19 virus documented in this encounter [employer] Phone: [email or web address] note* Diagnosis Hyperglycemia- Primary Other abnormal glucose documented in this encounter [employer] Phone: evaltrirfd note* Diagnosis Acute upper respiratory infection- Primary Acute upper respiratory infections of unspecified site Positive test examination or test, positive result documented in this encounter [employer] Phone: evalyxyluo note* Diagnosis Musculoskeletal pain- Primary Mylagia and myositis, unspecified documented in this encounter [employer] Phone: evaluation note* Diagnosis Generalized abdominal pain- Primary Abdominal pain, generalized Diarrhea, unspecified type Nausea Nausea alone documented in this encounter RADHA TARANGO [employer] Phone: evaluation note* Diagnosis Bronchitis- Primary Bronchitis, not specified as acute or chronic documented in this encounter [employer] [facility] Phone: evaluation note* Diagnosis Lower abdominal pain- Primary Abdominal pain, other specified site Endometriosis Endometriosis, site unspecified History of PCOS Personal history of other genital system and obstetric disorders Morbid obesity due to excess calories (HCC) Dysmenorrhea documented in this encounter [facility] Phone: evaluation note* Diagnosis Endometriosis- Primary Endometriosis, site unspecified Dysmenorrhea documented in this encounter [facility] Phone: evaluation note* Diagnosis Chronic pelvic pain in female- Primary Unspecified symptom associated with female genital organs Dysmenorrhea documented in this encounter [facility] Phone: evaluation note* Diagnosis Post-op pain- Primary Other acute postoperative pain Dysmenorrhea Post-op pain Other acute postoperative pain Complication of surgical procedure Unspecified complication of procedure, not elsewhere classified Bladder adhesions Other specified disorders of bladder Uterine adhesions Intrauterine synechiae Adhesion of omentum Peritoneal adhesions (postoperative) (postinfection) documented in this encounter [facility] Phone: evaluation note* Diagnosis Chest pain, unspecified type- Primary documented in this encounter [facility] Phone: evaluation note* Diagnosis Hyperglycemia- Primary Other abnormal glucose Diarrhea, unspecified type documented in this encounter [facility] Phone: evaluation note* Diagnosis Syncope, unspecified syncope type- Primary documented in this encounter [facility] note* Diagnosis Lower abdominal pain- Primary Abdominal pain, other specified site documented in this encounter [place] note* Diagnosis Diarrhea, unspecified type- Primary Viral illness Unspecified viral infection, in conditions classified elsewhere and of unspecified site documented in this encounter [facility] note* Diagnosis Chest pain, unspecified type- Primary documented in this encounter [place] note* Diagnosis Chronic abdominal pain- Primary Abdominal pain, unspecified site Diarrhea, unspecified type [facility] Narrative No data available for this section [facility] [place] Hospital Discharge instructions* Attachments The following attachments cannot be sent through Care Everywhere. * Bronchitis ([place]) documented in this [employer] Phone: Hospital Discharge instructions* Attachments The following attachments cannot be sent through Care Everywhere. * URI (Upper Respiratory Infection) ([place]) * Coronavirus Disease (COVID-19): General Info ([place]) documented in this [employer] Phone: Hospital Discharge instructions* Instructions* Samy Walker MD - 12/05/2021 Return to the ED for persistently elevated blood sugar, development of vomiting, abdominal pain, fever or other concerns. documented in this [employer] Phone: Hospital Discharge instructions* Attachments The following attachments cannot be sent through Care Everywhere. * URI (Upper Respiratory Infection): Viral ([place]) documented in this [employer] Phone: Hospital Discharge instructions* Instructions* Samy Walker MD - 03/11/2022 Your evaluation today showed no findings of significant concern. Your symptoms will likely pass on their own within the next few days. However, you have been given a prescription for Zofran to use as needed for nausea and vomiting. Return to the ED if you develop fever, blood in your stool, worsening abdominal pain or any other concerns. * Attachments The following attachments cannot be sent through Care Everywhere. * Abdominal Pain ([place]) * Nausea and Vomiting ([place]) * Diarrhea ([place]) documented in this [facility] [employer] Phone: Hospital Discharge instructions* Attachments The following attachments cannot be sent through Care Everywhere. * Endometriosis ([place]) documented in this [facility] Phone: Hospital Discharge instructions No data available for this section [facility] [place] Hospital Discharge instructions* Attachments The following attachments cannot be sent through Care Everywhere. * Abdominal Pain ([place]) documented in [facility] note No data available for this section [facility] [place] Discharge Instructions * Instructions* Rod Conte MD - 05/19/2019 Have US done to rule out DVT done tomorrow as instructed * Attachments The following attachments cannot be sent through Care Everywhere. * Leg Pain ([place]) documented in this encounter* Attachments The following attachments cannot be sent through Care Everywhere. * Nausea and Vomiting ([place]) documented in this encounter* Instructions* Efra Vazquez MD - 01/10/2020 Please take all medications as prescribed. Please follow up with your primary care physician by calling today, or as soon as possible, for thefirst available appointment. If you do not have a primary care physician, please contact a physician or clinic listed below today to establish care. Please return to the emergency department IMMEDIATELY if you develop uncontrolled fevers, uncontrolled vomiting, change in symptoms, worsening of symptoms, or ANY other concerns. * Attachments The following attachments cannot be sent through Care Everywhere. * Trichomoniasis ([place]) documented in this encounter* Instructions* Reina Magaña RN - 02/01/2020 OUTPATIENT DISCHARGE Ramila Courtney [facility] ACTIVITY LIMITATIONS: ( x )Up and about as desired and tolerated ( )Up to bathroom only ( x )Lay on either side ( )Avoid heavy lifting or exercise ( )No sex ( )No nipple stimulation ( )Complet bedrest ( )Avoid using stairs ( x )Increase fluids DRINK AT LEAST eight-8oz. Glasses of water daily. Call your Doctor if: ( )Contractions are every 5 minutes apart (from start of one to the start of the next contraction) lasting 60 seconds for at least 1 hour, strong enough you can not walk or talk through the contraction and regular. ( )Bag of water breaks ( )Vaginal bleeding ( )Unusual pain occurs ( )Decreased movement ( ) labor: If you have 4 contractions in an hour Keep your scheduled follow up appointment IN CASE OF EMERGENCY CONTACT LABOR AND DELIVERY . documented in this encounter* Attachments The following attachments cannot be sent through Care Everywhere. * : Abdominal Pain ([place]) * Dizziness ([place]) documented in this encounter* Instructions* Krystyna Pino PA-C - 12/14/2019 Call to arrange follow-up with your AUTOMATIC TIRE TESTER. Continue to monitor your blood sugar and your blood pressure. * Attachments The following attachments cannot be sent through Care Everywhere. * : Abdominal Pain ([place]) documented in this encounter* Instructions* Elo Aguirre RN - 02/26/2020 OUTPATIENT DISCHARGE Ananya Do [facility] or [address] Dr. Boucher Ramila Courtney [facility] Hien Irving [facility] Ramila Bustillos [facility] Dina Valenzuela CN ACTIVITY LIMITATIONS: ( x)Up and about as desired and tolerated ( )Up to bathroom only ( )Lay on either side ( )Avoid heavy lifting or exercise ( )No sex ( )No nipple stimulation ( )Complet bedrest ( )Avoid using stairs ( x )Increase fluids DRINK AT LEAST eight-8oz. Glasses of water daily. Call your Doctor if: ( )Contractions are every 5 minutes apart (from start of one to the start of the next contraction) lasting 60 seconds for at least 1 hour, strong enough you can not walk or talk through the contraction and regular. ( x )Bag of water breaks ( X )Vaginal bleeding ( X )Unusual pain occurs ( X )Decreased movement ( X ) labor: If you have 4 contractions in an hour Keep your scheduled follow up appointment. Or call for a follow up on . IN CASE OF EMERGENCY CONTACT LABOR AND DELIVERY . documented in this encounter* Instructions* Reina Magaña RN - 03/29/2020 OUTPATIENT DISCHARG Ramila Courtney [facility] ACTIVITY LIMITATIONS: (x )Up and about as desired and tolerated ( )Up to bathroom only ( )Lay on either side ( )Avoid heavy lifting or exercise (x )No sex (x )No nipple stimulation ( )Complet bedrest ( )Avoid using stairs (x )Increase fluids DRINK AT LEAST eight-8oz. Glasses of water daily. Call your Doctor if: ( )Contractions are every 5 minutes apart (from start of one to the start of the next contraction) lasting 60 seconds for at least 1 hour, strong enough you can not walk or talk through the contraction and regular. (x )Bag of water breaks ( x )Vaginal bleeding (x )Unusual pain occurs (x )Decreased movement (x ) labor: If you have 4 contractions in an hour Keep your scheduled follow up appointment. Procardia 10 mg three times a day IN CASE OF EMERGENCY CONTACT LABOR AND DELIVERY . documented in this encounter* Instructions* Sharmila Casas RN - 04/08/2020 OUTPATIENT DISCHARGE Ramila Courtney [facility] ACTIVITY LIMITATIONS: ( x )Up and about as desired and tolerated ( )Up to bathroom only ( )Lay on either side ( )Avoid heavy lifting or exercise ( )No sex ( )No nipple stimulation ( )Complet bedrest ( )Avoid using stairs ( x )Increase fluids DRINK AT LEAST eight-8oz. Glasses of water daily. Call your Doctor if: ( )Contractions are every 5 minutes apart (from start of one to the start of the next contraction) lasting 60 seconds for at least 1 hour, strong enough you can not walk or talk through the contraction and regular. (x )Bag of water breaks (x )Vaginal bleeding (x )Unusual pain occurs (x )Decreased movement (x ) labor: If you have 4 contractions in an hour Take the procardia as prescribed, as well as all of your home meds as prescribed. Call Dr Uribe's office Saturday morning to see if she wants to see you in the office before your next already scheduled appointment. IN CASE OF EMERGENCY CONTACT LABOR AND DELIVERY . documented in this encounter* Instructions* Lyndsey Harp RN - 05/24/2020 Follow-up with your OB doctor as specified. [facility] OB Department phone: Dr. Scooter Farfan [facility] Dr. Terell Elmore [facility] [address] [facility] [address] [facility] [id number] [place] or [place] DIET Eat a well balanced diet focusing on foods high in fiber and protein. Drink plenty of fluids especially water. To avoid constipation you may take a mild stool softener as recommended by your doctor or fire inspector. ACTIVITY Gradually increase your activity. Resume exercise regimen only after advice by your doctor or fire inspector. Avoid lifting anything heavier than a gallon of milk for SIX weeks. Avoid driving until your doctor or fire inspector has given their approval. Rise slowly from a lying to sitting and then a standing position. Climb stairs one at a time. Use caution when carrying your baby up and down the stairs. NO SEXUAL Activity for 4-6 weeks or until advised by your doctor; Nothing in vagina: intercourse, tampons, or douching. Be prepared to discuss family planning at your follow-up OB visit. You may feel tired or have a lack of energy. You may continue your vitamin to replenish nutrients post delivery. Nap when baby naps to catch up on sleep. EMOTIONS You may feel kat, sad, teary, & overwhelmed. Contact your OB provider if you feel you may be showing signs of depression, or have thoughts of harming yourself or your . If will not stop crying, contact another adult for help or place in their crib on their back and take a break. NEVER shake your infant. BLEEDING Vaginal bleeding will decrease in amount over the next few weeks. You will notice that as your activity increases, your flow may increase. This is your body's way oftelling you, you need to take things easier and rest more often. Call your care provider if you are saturating more than one maxi pad in an hour & resting does not help. BREAST CARE Take medications as recommended by your doctor or fire inspector for pain If you develop a warm, red, tender area on your breast or develop a fever contact your OB provider. For moms: If you become engorged, feeding may be more difficult or painful for 1-2 days. You may find it helpful to hand express some milk so that the can latch on more easily. While , continue to take your vitamins as directed by your doctor or fire inspector. Refer to the booklet in the folder/binder for more information. If you feel you need more assistance or have questions, please call Debby Stanley IBCLC, sfdc consultant, at or the OB department to schedule an appointment or phone consultation. For more FREE help, visit the Support Group on Saturday evenings at 7 pm in the OB department. For NON- moms: You may apply ice packs to your breasts over your bra for twenty minutes at a time for comfort. Avoid stimulation to your breasts, when showering allow the water to strike your back not your breasts. Wear a good fitting bra until your milk dries, such as a sports bra. INCISIONAL CARE / MELI CARE If you have an acticoat dressing in place after your please leave your dressing in place for one week until you follow up with your provider. They will remove this dressing in the office when you see them. If your dressing starts to peel up or becomes soiled prior to your appointment with your provider, you may remove the dressing and clean your incision as directed below. Clean your incision in the shower with mild soap. After shower pat the incision area dry and allow the area open to air. If used, Steri-strips should be completely removed by 2 weeks but you may remove them as they become loose or soiled. If used, Tingley should be removed by your care provider. If used/ordered, an abdominal binder may provide support for your incision. Use the meli-bottle after toileting until bleeding stops. Cleanse your perineum from front to back If used, stitches will dissolve in 4-6 weeks. You may use a sitz bath or soak in a clean tub as needed for comfort. Kegel exercises will help restore bladder control. SWELLING Try to keep your legs elevated when you are sitting. When lying down keep your legs elevated. When wearing stocking or socks, make sure they are not too tight. WHEN TO CALL THE DOCTOR If you have a temp of 100.6 or more. If your bleeding has increased and you are saturating a pad in an hour. Your abdomen is tender to touch. You are passing blood clots bigger than the size of a lemon. If you are experiencing extreme weakness or dizziness. If you are having flu-like symptoms such as achy muscles or joints. There is a foul smell or a green color to your vaginal bleeding. If you have pain that cannot be relieved. You have persistent burning or frequency with urination. Call if you have concerns about your well-being. You are unable to sleep, eat, or are having thoughts of harming yourself or your baby. You have swelling, bleeding, drainage, foul odor, redness, or warmth in/around your incision or stitches. You have a red, warm, tender area in your calf. * Attachments The following attachments cannot be sent through Care Everywhere. * OB CORONAVIRUS (COVID-19): , AND BABY CARE DISCHARGE INSTRUCTIONS documented in this encounter* Discharge Instr - Activity* Shagufta Gurrola RN - 06/15/2020 12:35 PM EDT Increase activity, up walking. Use incentive spirometer 10 times every 2-4 hours * Discharge Instr - Diet* Shagufta Gurrola RN - 06/15/2020 12:35 PM EDT General diet * Attachments The following attachments cannot be sent through Care Everywhere. * Blood Clots: Inpatient: Quick List ([place]) * Pulmonary Embolism ([place]) documented in this encounter* Attachments The following attachments cannot be sent through Care Everywhere. * Acute Concussion ([place]) * Head Injury: Closed: General Info ([place]) documented in this encounter* Attachments The following attachments cannot be sent through Care Everywhere. * Abdominal Pain ([place]) documented in this encounter* Instructions* Krystyna Pino PA-C - 09/17/2020 Call to arrange follow-up with back specialist listed below. * Attachments The following attachments cannot be sent through Care Everywhere. * Herniated Disc ([place]) documented in this encounter* Instructions* Patricia Recio MD - 09/26/2020 Call today or tomorrow to follow up with Yossi Wells MD to make them aware of your visit to the emergency department Use an ice pack or bag filled with ice and apply to the injured area 3 4 times a day for 15 20 minutes each time. If the injury is older than 3 days, then use a heating pad to help relax the muscles in your back. Use ibuprofen or Tylenol (unless prescribed medications that have Tylenol in it) for pain. You can take over the counter Ibuprofen (advil) tablets (4 tablets every 8 hours or 3 tablets every 6 hours or 2 tablets every 4 hours) Edilberto' Flexion Exercises 1. Pelvic tilt. Lie on your back with knees bent, feet flat on floor. Flatten the small of your back against the floor, without pushing down with the legs. Hold for 5 to 10 seconds. 2. Single Knee to chest. Lie on your back with knees bent and feet flat on the floor. Slowly pull your right knee toward your shoulder and hold 5 to 10 seconds. Lower the knee and repeat with the other knee. 3. Double knee to chest. Begin as in the previous exercise. After pulling right knee to chest, pullleft knee to chest and hold both knees for 5 to 10 seconds. Slowly lower one leg at a time. 4. Partial sit-up. Do the pelvic tilt (exercise 1) and, while holding this position, slowly curl your head and shoulders off the floor. Hold briefly. Return slowly to the starting position. 5. Hamstring stretch. Start in long sitting with toes directed toward the ceiling and knees fully extended. Slowly lower the trunk forward over the legs, keeping knees extended, arms outstretched over the legs, and eyes focus ahead. 6. Hip Flexor stretch. Place one foot in front of the other with the left (front) knee flexed and the right (back) knee held rigidly straight. Flex forward through the trunk until the left knee contacts the axillary fold (arm pit region). Repeat with right leg forward and left leg back. 7. Squat. Stand with both feet parallel, about shoulder's width apart. Attempting to maintain the trunk as perpendicular as possible to the floor, eyes focused ahead, and feet flat on the floor, the subject slowly lowers his body by flexing his knees Return to the Emergency Department for inability to move legs, worsening of pain, tingling / loss of sensation, any other care or concern. documented in this encounter* Instructions* Lyndsey Harp RN - 04/29/2020 OUTPATIENT DISCHARGE Ananya Do [facility] [place] or [place] ACTIVITY LIMITATIONS: ( x)Up and about as desired and tolerated ( )Up to bathroom only (x )Lay on either side ( x )Avoid heavy lifting or exercise ( )No sex ( x )No nipple stimulation ( )Complet bedrest ( )Avoid using stairs (x )Increase fluids DRINK AT LEAST eight-8oz. Glasses of water daily. Call your Doctor if: ( )Contractions are every 5 minutes apart (from start of one to the start of the next contraction) lasting 60 seconds for at least 1 hour, strong enough you can not walk or talk through the contraction and regular. ( x )Bag of water breaks ( x )Vaginal bleeding ( x )Unusual pain occurs ( x )Decreased movement (x ) labor: If you have 4 contractions in an hour Keep your scheduled follow up appointment. Or call for a follow up on . IN CASE OF EMERGENCY CONTACT LABOR AND DELIVERY . documented in this encounter* Attachments The following attachments cannot be sent through Care Everywhere. * Abscess: Skin ([place]) documented in this encounter* Discharge Instr - DARREL* Efra Vazquez MD - 07/28/2019 10:16 PM EST Continuity of Care Form Patient Name: Dorota Archibald : 1995 Admit date: 07/28/2019 Discharge date: Code Status Order: Prior Advance Directives: Admitting Physician: No admitting provider for patient encounter. PCP: Yossi Wells MD Discharging Nurse: Discharging Hospital Unit/Room#: 12/25 Discharging Unit Phone Number: Emergency Contact: Extended Emergency Contact Information Primary Emergency Contact: MALENA SWANSON Relation: Other Past Surgical History: Past Surgical History: Procedure Laterality Date SECTION 03/22/2016 CHOLECYSTECTOMY 03/29/2017 CHOLECYSTECTOMY, LAPAROSCOPIC N/A 03/29/2017 CHOLECYSTECTOMY LAPAROSCOPIC XI ROBOTIC performed by Anival Hinson IV, DO at [facility] OR CYSTOSCOPY 07-22-2012 DILATION AND CURETTAGE OF UTERUS EYE SURGERY 12-15-2011 Right LAPAROSCOPY 07-22-2012 OVARY REMOVAL 06/2010 Left TONSILLECTOMY AND ADENOIDECTOMY 02/2011 WISDOM TOOTH EXTRACTION 2009 Immunization History: Immunization History Administered Date(s) Administered MMR 03/24/2016 Tdap (Boostrix, Adacel) 10/21/2017 Active Problems: Patient Active Problem List Diagnosis Code Fever R50.9 Acute biliary pancreatitis K85.10 Obesity (BMI 30-39.9) E66.9 Bandemia D72.825 Hypercalcemia E83.52 Common bile duct dilatation K83.8 H/O acute pancreatitis Z87.19 Smoker F17.200 Hiatal hernia K44.9 H/O: Z98.891 Encounter for supervision of other normal , second trimester Z34.82 13 weeks gestation of Z3A.13 Abdominal pain, right lower quadrant R10.31 Incisional pain L76.82 False labor before 37 completed weeks of gestation, antepartum O47.00 Isolation/Infection: Isolation No Isolation Patient Infection Status Infection Onset Added Last Indicated Last Indicated By Review Planned Expiration Resolved Resolved By None active Resolved MRSA 03/30/16 03/30/16 Aissatou Yoder, RN 03/25/17 Sarahi Lockwood, NU 03/05/2016 screening Nurse Assessment: Last Vital Signs: BP (!) 127/92 Pulse 113 Temp 96.9 F (36.1 C) (Temporal) Resp 18 Ht 5' 8 (1.727 m) Wt 253 lb (114.8 kg) LMP 07/07/2019 SpO2 97% BMI 38.47 kg/m Last documented pain score (0-10 scale): Pain Level: 8 Last Weight: Wt Readings from Last 1 Encounters: 07/28/19 253 lb (114.8 kg) Mental Status: {IP PT MENTAL STATUS:90333} IV Access: { D[facility]REL IV ACCESS:019715935} Nursing Mobility/ADLs: Walking {[facility] DME ADLs:722886851} Transfer {[facility] DME ADLs:853674665} Bathing {[facility] DME ADLs:280330817} Dressing {[facility] DME ADLs:920637852} Toileting {[facility] DME ADLs:880562356} Feeding {[facility] DME ADLs:309688034} Bike Assembler {[facility] DME ADLs:021942934} Med Delivery { DARREL MED Delivery:437994289} Wound Care Documentation and Therapy: Incision 03/29/17 Abdomen (Active) Number of days: 851 Incision 03/29/17 Abdomen (Active) Number of days: 851 Elimination: Continence: Bowel: {YES / NO:} Bladder: {YES / NO:} Urinary Catheter: {Urinary Catheter:901275003} Colostomy/Ileostomy/Ileal Conduit: {YES / NO:} Date of Last BM: No intake or output data in the 24 hours ending 07/28/192244 No intake/output data recorded. Safety Concerns: { [facility]ARREL Safety Concerns:761288756} Impairments/Disabilities: {[facility] Impairments/Disabilities:432511225} Nutrition Therapy: Current Nutrition Therapy: {[facility] Diet List:718491063} Routes of Feeding: {[facility] Other Feedings:553545844} Liquids: {[facility] liquid thickness:74966} Daily Fluid Restriction: {[facility] DME Yes amt example:626252761} Last Modified Barium Swallow with Video (Video Swallowing Test): {Done Not Done Date:264023659} Treatments at the Time of Hospital Discharge: Respiratory Treatments: Oxygen Therapy: {Therapy; copd oxygen:30232} Ventilator: {[facility] Vent List:021509581} Rehab Therapies: {THERAPEUTIC INTERVENTION:6304221567} Weight Bearing Status/Restrictions: {[facility] Weight Bearin} Other Medical Equipment (for information only, NOT a DME order): {EQUIPMENT:807397305} Other Treatments: Patient's personal belongings (please select all that are sent with patient): {[facility] DME Belongings:131333371} RN SIGNATURE: {Esignature:606178183} CASE MANAGEMENT/SOCIAL WORK SECTION Inpatient Status Date: Readmission Risk Assessment Score: Readmission Risk Risk of Unplanned Readmission: 0 Discharging to Facility/ Agency Name: Address: Phone: Fax: Dialysis Facility (if applicable) Name: Address: Dialysis Schedule: Phone: Fax: Mud Engineer/Television Receiver Analyzer signature: {Esignature:431374219} PHYSICIAN SECTION Prognosis: {Prognosis:1714559326} Condition at Discharge: { Patient Condition:758704807} Rehab Potential (if transferring to Rehab): {Prognosis:5262049532} Recommended Labs or Other Treatments After Discharge: Physician Certification: I certify the above information and transfer of Dorota Archibald is necessary for the continuing treatment of the diagnosis listed and that she requires {Admit to Appropriate Level of Care:90994} for {GREATER/LESS:401799327} 30 days. Update Admission H&P: {[facility] DME Changes in HandP:352018453} PHYSICIAN SIGNATURE: {Esignature:450138045} * Additional Instructions* Efra Vazquez MD - 07/29/2019 Please take all medications as prescribed. Please follow up with your primary care physician by calling today, or as soon as possible, for thefirst available appointment. If you do not have a primary care physician, please contact a physician or clinic listed below today to establish care. Please return to the emergency department IMMEDIATELY if you develop uncontrolled fevers, uncontrolled vomiting, change in symptoms, worsening of symptoms, or ANY other concerns. * Attachments The following attachments cannot be sent through Care Everywhere. * Ovarian Cyst: Functional ([place]) documented in this encounter* Instructions* Ana Solares RN - 04/02/2020 Home Undelivered Discharge Instructions After Discharge Orders: Future Appointments Date Time Provider Department Center 04/04/2020 9:40 AM Silvio Gr MD [facility] 04/27/2020 12:30 PM PLASTICS WORKER [facility] Call if need a refill on procardia before next office appointment Starting tomorrow begin taking procardia 20mg three times a day. Diet: normal diet as tolerated Rest: normal activity as tolerated Other instructions: Do kick counts once a day on your baby. Choose the time of day your baby is most active. Get in a comfortable lying or sitting position and time how long it takes to feel 10 kicks, twists, turns, swishes, or rolls. Call your physician or fire inspector if there have not been 10 kicks in 2 hours Call physician or fire inspector, return to Labor and Delivery, call 911, or go to the nearest Emergency Room if: increased leakage or fluid, contractions more than 4 per 1 hour, decreased movement, persistent low back pain or cramping, bleeding from vaginal area, difficulty urinating, pain with urination, difficulty breathing or new calf pain documented in this encounter Assessments Diagnosis Right leg pain- Primary Pain in limb Diagnosis Right leg pain Pain in limb Diagnosis Non-intractable vomiting with nausea, unspecified vomiting type- Primary Diagnosis Trichomoniasis Trichomoniasis, unspecified Diagnosis RUQ pain Abdominal pain, right upper quadrant Diagnosis Dizziness Dizziness and giddiness Right upper quadrant abdominal pain Abdominal pain, right upper quadrant Diagnosis Fall, initial encounter Diagnosis Essential hypertension Unspecified essential hypertension Palpitations Lightheadedness Dizziness and giddiness SOB (shortness of breath) Shortness of breath Tachycardia Tachycardia, unspecified Episodic lightheadedness Dizziness and giddiness Diagnosis Abdominal cramps Abdominal pain, unspecified site Diagnosis Uterine contractions during Diagnosis History of pre-eclampsia Palpitations LVH (left ventricular hypertrophy) Cardiomegaly Tachycardia Tachycardia, unspecified Diagnosis Status post repeat low transverse section delivery, without mention of indication, unspecified as to episode of care Hx of unilateral salpingectomy Personal history of surgery to other organs Gestational diabetes Abnormal maternal glucose tolerance, complicating , childbirth, or the puerperium, unspecified as to episode of care Diagnosis Acute pulmonary embolism without acute cor pulmonale, unspecified pulmonary embolism type (HCC) PE (pulmonary thromboembolism) (HCC) Chronic pulmonary embolism Diagnosis Iron deficiency anemia due to chronic blood loss Iron deficiency anemia secondary to blood loss (chronic) Diagnosis PE (pulmonary thromboembolism) (HCC) Chronic pulmonary embolism Hypercoagulable state (HCC) Primary hypercoagulable state Smoker Tobacco use disorder Diagnosis Closed head injury, initial encounter Injury of head, initial encounter Concussion without loss of consciousness, initial encounter Diagnosis Right lower quadrant abdominal pain Abdominal pain, right lower quadrant Diagnosis Lumbar disc herniation- Primary Displacement of lumbar intervertebral disc without myelopathy Diagnosis Acute midline low back pain with bilateral sciatica- Primary Diagnosis Lumbar disc herniation with radiculopathy- Primary Displacement of lumbar intervertebral disc without myelopathy Lumbar radiculopathy Thoracic or lumbosacral neuritis or radiculitis, unspecified Diagnosis Abscess of right thigh- Primary Cellulitis and abscess of leg, except foot Diagnosis Cyst of right ovary- Primary Other and unspecified ovarian cyst Advance Directives No Advanced Directives Records FoundDocuments on File Type Date Recorded 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 Advance Directives and Living Will Power of Engraver Signature Latest Code Status on File Code Status Date Activated Date Inactivated Comments Full Code 11/09/2017 12:12 PM 11/09/2017 6:13 PM Full Code 09/20/2017 2:44 AM 09/20/2017 4:37 PM Full Code 07/10/2017 2:26 AM 07/10/2017 7:34 PM Full Code 03/25/2017 12:49 AM 03/29/2017 8:50 PM Full Code 03/22/2016 7:40 AM 03/24/2016 6:02 PM Documents on File Type Date Recorded 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 Advance Directives and Living Will Power of Engraver Signature Latest Code Status on File Code Status Date Activated Date Inactivated Comments Full Code 11/09/2017 12:12 PM 11/09/2017 6:13 PM Full Code 09/20/2017 2:44 AM 09/20/2017 4:37 PM Full Code 07/10/2017 2:26 AM 07/10/2017 7:34 PM Full Code 03/25/2017 12:49 AM 03/29/2017 8:50 PM Full Code 03/22/2016 7:40 AM 03/24/2016 6:02 PM Latest Code Status on File Code Status Date Activated Date Inactivated Comments Full Code 02/01/2020 9:22 PM Full Code 11/09/2017 12:12 PM 11/09/2017 6:13 PM Latest Code Status on File Code Status Date Activated Date Inactivated Comments Full Code 02/01/2020 9:22 PM 02/01/2020 11:59 PM Full Code 11/09/2017 12:12 PM 11/09/2017 6:13 PM Latest Code Status on File Code Status Date Activated Date Inactivated Comments Full Code 02/26/2020 5:08 PM Full Code 02/01/2020 9:22 PM 02/01/2020 11:59 PM Latest Code Status on File Code Status Date Activated Date Inactivated Comments Full Code 02/26/2020 5:08 PM 02/26/2020 9:06 PM Latest Code Status on File Code Status Date Activated Date Inactivated Comments Full Code 04/07/2020 11:23 PM Full Code 02/26/2020 5:08 PM 02/26/2020 9:06 PM Documents on File Type Date Recorded 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 ACP-Advance Directive ACP-Power of Engraver Signature Latest Code Status on File Code Status Date Activated Date Inactivated Comments Full Code 04/29/2020 12:16 PM 04/29/2020 4:34 PM Full Code 04/07/2020 11:23 PM 04/08/2020 3:32 AM Full Code 02/26/2020 5:08 PM 02/26/2020 9:06 PM Full Code 02/01/2020 9:22 PM 02/01/2020 11:59 PM Documents on File Type Date Recorded 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 ACP-Advance Directive ACP-Power of Engraver Signature Latest Code Status on File Code Status Date Activated Date Inactivated Comments Full Code 04/29/2020 12:16 PM 04/29/2020 4:34 PM Full Code 04/07/2020 11:23 PM 04/08/2020 3:32 AM Latest Code Status on File Code Status Date Activated Date Inactivated Comments Full Code 05/22/2020 7:24 PM Full Code 05/22/2020 4:16 PM 05/22/2020 7:24 PM Full Code 04/29/2020 12:16 PM 04/29/2020 4:34 PM Latest Code Status on File Code Status Date Activated Date Inactivated Comments Full Code 06/13/2020 11:39 PM Full Code 05/22/2020 7:24 PM 05/24/2020 7:03 PM Latest Code Status on File Code Status Date Activated Date Inactivated Comments Full Code 06/13/2020 11:39 PM 06/15/2020 3:58 PM Latest Code Status on File Code Status Date Activated Date Inactivated Comments Full Code 09/25/2020 1:58 AM Full Code 06/13/2020 11:39 PM 06/15/2020 3:58 PM Latest Code Status on File Code Status Date Activated Date Inactivated Comments Full Code 04/29/2020 12:16 PM Latest Code Status on File Code Status Date Activated Date Inactivated Comments Full Code 09/25/2020 1:58 AM 09/26/2020 5:40 PM Latest Code Status on File Code Status Date Activated Date Inactivated Comments Full Code 09/25/2020 1:58 AM 09/26/2020 5:40 PM Full Code 06/13/2020 11:39 PM 06/15/2020 3:58 PM Full Code 05/22/2020 7:24 PM 05/24/2020 7:03 PM Full Code 05/22/2020 4:16 PM 05/22/2020 7:24 PM Full Code 04/29/2020 12:16 PM 04/29/2020 4:34 PM Latest Code Status on File Code Status Date Activated Date Inactivated Comments Full Code 11/12/2022 8:17 AM Full Code 09/25/2020 1:58 AM 09/26/2020 5:40 PM Latest Code Status on File Code Status Date Activated Date Inactivated Comments Full Code 11/12/2022 8:17 AM 11/12/2022 3:52 PM Full Code 09/25/2020 1:58 AM 09/26/2020 5:40 PM Latest Code Status on File Code Status Date Activated Date Inactivated Comments Full Code 11/12/2022 8:17 AM 11/12/2022 3:52 PM Code Status History Code Status Date Activated Date Inactivated Comments Full Code 09/25/2020 1:58 AM 09/26/2020 5:40 PM Full Code 06/13/2020 11:39 PM 06/15/2020 3:58 PM Full Code 05/22/2020 7:24 PM 05/24/2020 7:03 PM Full Code 05/22/2020 4:16 PM 05/22/2020 7:24 PM Latest Code Status on File Code Status Date Activated Date Inactivated Comments Full Code 07/29/2023 8:38 PM 07/30/2023 6:38 PM Code Status History Code Status Date Activated Date Inactivated Comments Full Code 06/21/2023 5:25 AM 06/21/2023 4:29 PM Full Code 11/12/2022 8:17 AM 11/12/2022 3:52 PM Full Code 09/25/2020 1:58 AM 09/26/2020 5:40 PM Full Code 06/13/2020 11:39 PM 06/15/2020 3:58 PM Healthcare Agents on File Name Relationship Healthcare Agent Relationship Communication Malena Swanson Spouse Primary Decision Maker Healthcare Agents on File Name Relationship Healthcare Agent Relationship Communication Malena Swanson Spouse Primary Decision Maker Latest Code Status on File Code Status Date Activated Date Inactivated Comments Full Code 12/24/2023 11:50 PM 12/25/2023 1:35 PM Code Status History Code Status Date Activated Date Inactivated Comments Full Code 07/29/2023 8:38 PM 07/30/2023 6:38 PM Full Code 06/21/2023 5:25 AM 06/21/2023 4:29 PM Full Code 11/12/2022 8:17 AM 11/12/2022 3:52 PM Full Code 09/25/2020 1:58 AM 09/26/2020 5:40 PM Healthcare Agents on File Name Relationship Healthcare Agent Relationship Communication Malena Swanson Spouse Primary Decision Maker Healthcare Agents on File Name Relationship Healthcare Agent Relationship Communication Malena Swanson Spouse Primary Decision Maker Healthcare Agents on File Name Relationship Healthcare Agent Relationship Communication Malena Swanson Spouse Primary Decision Maker Reason for Referral Status Reason Specialty Diagnoses / Procedures Referre d By Contact Referred To Contact Open Radiology Diagnoses Right leg pain Procedures VL DUP LOWER EXTREMITY VENOUS RIGHT Rod Conte MD [address] [place] [address] [place] [address] Status Reason Specialty Diagnoses / Procedures Referred By Contact Referred To Contact Pending Review Radiology Diagnoses RUQ pain Procedures US GALLBLADDER SAEIDQ Farhat Llanes MD [address] [place] [address] [place] [address] Status Reason Specialty Diagnoses / Procedures Referred By Contact Referred To Contact Not Required - [facility] Cardiology / EKG Diagnoses Palpitations Lightheadedness SOB (shortness of breath) Tachycardia Episodic lightheadedness Procedures Holter monitor 24 hour HC HOLTER MONITOR Silvio Gr MD [address] [place] [address] [facility] [address] [place] [address] Status Reason Specialty Diagnoses / Procedures Referred By Contact Referred To Contact Closed Cardiology / Echocardiography Diagnoses Palpitations Lightheadedness SOB (shortness of breath) Tachycardia Episodic lightheadedness Procedures Echo 2D w doppler w color complete HC 2D ECHO WITHOUT CONTRAST - WITH DOP/COLOR FLOW Silvio Gr MD [address] [place], [place] [id number] [facility] Echo [address] [place], [place] [id number] Status Reason Specialty Diagnoses / Procedures Referred By Contact Referred To Contact Closed Cardiology / EKG Diagnoses History of pre-eclampsia Palpitations LVH (left ventricular hypertrophy) Tachycardia Procedures Holter monitor 24 hour Silvio Gr MD [address] [place], [place] [id number] [facility] Ekg [address] [place] [address] Status Reason Specialty Diagnoses / Procedures Referred By Contact Referred To Contact Pending Review Radiology Diagnoses Abdominal pain, epigastric Procedures FL UGI W AIR CONTRAST Yossi Wells MD [address] [place] [address] Summary Purpose Family History No Family History Records FoundNo Family History Records FoundNo Family History Records FoundNo Family History Records FoundNo Family History Records FoundNo Family History Records Found History of Present Illness * Darlene Werner - 12/30/2019 1:00 PM EDT Explained Holter monitor and diary. documented in this encounter* Darlene Werner - 12/30/2019 12:00 PM EDT Explained policies and procedures of an echocardiogram/doppler study. documented in this encounter* Elo Aguirre RN - 02/26/2020 5:05 PM EDT Pt arrives to unit with complaints of feeling dizzy, lightheaded and having a headache. States thatdizziness began around 11 am today and the headache started 45mins ago . Pt states I feel like I could pass out and im a little nauseated. Pt states that she has been checking her sugar this and stated it was 170 after she ate a snack after feeling the described symptoms. Pt denies any decrease in movement, leaking of fluid or vagina bleeding. UA obtained and vitals obtained at this time documented in this encounter* Ana Solares, NU - 03/29/2020 6:[address] Uribe at desk getting ready to go into OR. Notified that pt is ctx every 2-4 minutes lasting 50-60 seconds. Orders received. documented in this encounter* Susan Ontiveros - 05/11/2020 1:30 PM EDT Explained Holter monitor and diary. documented in this encounter* Lyndsey Harp RN - 05/24/2020 11:25 AM EDT discharge instructions explained to pt, pt v.u. of all. * Debby Stanley IBCLC - 05/24/2020 9:30 AM EDT note: [] Feeding observed, see flowsheet. [] Patient states is going well: no complaints. Denies questions or concerns. [x] Patient has questions/concerns. Patient is following feeding plan for late . She states that she began to feel tingling with let down yesterday while pumping. Encouraged to continuepumping her breasts at least every 3 hours and to try latching to breast as much as possible. Gave information and referral for tongue tie and dentist trained in release procedure. [x] Verbalizes understanding, advised to follow up with sfdc consultant if necessary. * Diann Farfan APRN - CNM - 05/24/2020 8:29 AM EDT C/S Labor and Delivery Post Progress Note SUBJECTIVE: Patient doing well today. Patient states she would like to go home but she is in more pain today patient states that she has 2 children at home that she would like to go home to. I did review with patient that if she is more uncomfortable today she should stay until Wednesday. Due to current regulations we do not send large doses of Percocet at home. Also due to her previous wound infection I wanted her to stay for wound management however patient request to go home this evening. Flatus:Present BM:no Diet: Tolerating regular diet - reminded pt to watch her diabetic diet Ambulation: Ambulateswithout difficulty OBJECTIVE: Vitals: BP 125/75 Pulse 74 Temp 97.7 F (36.5 C) (Oral) Resp 16 Ht 5' 8.5 (1.74 m) Wt 238 lb 12.8oz (108.3 kg) LMP 08/11/2019 (Exact Date) SpO2 100% Unknown BMI 35.78 kg/m Patient Vitals for the past 24 hrs: BP Temp Temp src Pulse Resp 05/24/20 0810 125/75 74 16 05/24/20 0809 97.7 F (36.5 C) Oral 05/24/20 0306 134/77 98.4 F (36.9 C) Oral 86 18 05/23/20 2330 131/71 98.2 F (36.8 C) Oral 95 18 05/23/20 2035 130/80 98 F (36.7 C) Oral 85 18 05/23/20 1536 (!) 139/90 97.9 F (36.6 C) Oral 92 16 05/23/20 1229 (!) 159/82 97.9 F (36.6 C) Oral 60 16 ABDOMEN: No scars, normal bowel sounds, soft, non-distended, non-tender, no masses palpated, no hepatosplenomegally INCISION: dressing in place, clean, dry and intact GENITAL/URINARY: Uterus: Size normal, Contour normal, Position normal Cor: RRR no Murmurs Pulmonary: clear to auscultation anterior and posterior Extremities: no Clubbing cyanosis or ecchymosis DATA: Hemoglobin/Hematocrit: Lab Results Component Value Date HGB 8.8 05/24/2020 HCT 27.0 05/24/2020 ASSESSMENT: Active Problems: Status post repeat low transverse section Hx of unilateral salpingectomy Gestational diabetes S/P C/S post op day # 2 PLAN: Discharge home today * Lyndsey Harp RN - 05/24/2020 7:52 AM EDT Pt resting with eyes closed, easy resps noted. Pt's significant other sleeping on couch at bedside.Infant in nbn. * Ramírez Ramila Colin, BUFFING TURNER AND COUNTER - CNM - 05/23/2020 12:25 PM EDT C/S Labor and Delivery Post Progress Note SUBJECTIVE: 1st day postop repeat Flatus:Present BM:no Diet: Tolerating regular diet Ambulation: Ambulateswithout difficulty OBJECTIVE: Vitals: BP (!) 150/86 Pulse 58 Temp 97.8 F (36.6 C) (Oral) Resp 20 Ht 5' 8.5 (1.74 m) Wt 238 lb 12.8 oz (108.3 kg) LMP 08/11/2019 (Exact Date) SpO2 100% Unknown BMI 35.78 kg/m Patient Vitals for the past 24 hrs: BP Temp Temp src Pulse Resp SpO2 Height Weight 05/23/20 0714 (!) 150/86 97.8 F (36.6 C) Oral 58 20 05/23/20 0318 (!) 110/59 98 F (36.7 C) 59 14 05/22/202336 131/70 97.7 F (36.5 C) 59 16 05/22/202050 131/76 97.6 F (36.4 C) 78 14 05/22/202035 131/73 97.7 F (36.5 C) 57 16 05/22/202020 127/61 97.8 F (36.6 C) 60 14 05/22/202005 134/69 97.8 F (36.6 C) 58 16 05/22/201950 (!) 142/81 98 F (36.7 C) 57 16 05/22/201935 132/67 97.9 F (36.6 C) 60 14 05/22/201931 100 % 05/22/201920 (!) 157/70 97.5 F (36.4 C) 60 16 100 % 05/22/201916 (!) 146/78 97.5 F (36.4 C) Oral 60 14 05/22/20 1900 137/88 56 14 100 % 05/22/20 1855 132/74 65 16 100 % 05/22/20 1850 (!) 141/80 65 18 100 % 05/22/20 1843 (!) 141/83 97.4 F (36.3 C) Oral 60 16 100 % 05/22/20 1641 5' 8.5 (1.74 m) 238 lb 12.8 oz (108.3 kg) 05/22/20 1614 128/87 98 05/22/20 1558 132/77 81 05/22/20 1543 (!) 135/91 95 05/22/20 1529 (!) 145/85 97.5 F (36.4 C) Oral 89 18 ABDOMEN: No scars, normal bowel sounds, soft, non-distended, non-tender, no masses palpated, no hepatosplenomegally INCISION: dressing in place, clean, dry and intact GENITAL/URINARY: External Genitalia: General appearance; normal, Hair distribution; normal, Lesionsabsent Cor: RRR no Murmurs Pulmonary: clear to auscultation anterior and posterior Extremities: no Clubbing cyanosis or ecchymosis DATA: CBC: Lab Results Component Value Date WBC 14.0 05/22/2020 RBC 3.75 05/22/2020 HGB 9.9 05/23/2020 HCT 35.2 05/22/2020 MCV 93.9 05/22/2020 MCH 30.9 05/22/2020 MCHC 33.0 05/22/2020 RDW 14.6 05/22/2020 PLT 245 05/22/2020 MPV 11.1 05/22/2020 ASSESSMENT: Active Problems: Status post repeat low transverse section Hx of unilateral salpingectomy Gestational diabetes Plan: delivered, observe sugars S/P C/S post op day # 1 PLAN: Routine postop orders add nicotine patch and vistaril for her anxiety as previously prescribed, continue to watch postprandial blood sugars although dose not appear to follow instructions on diet * Debby Stanley IBCLC - 05/23/2020 9:00 AM EDT education: [x] Latch/ good latch vs shallow latch/ steps to obtaining deep latch [x] How to know if is eating enough/ feedings per 24 hours, wet/dirty diapers [x] Feeding/satiety cues education resources given: [x] How to Breastfeed your baby - [place] publication [x] Information on feeding cues [x] Support group handout [x] Breastpump cleaning guidelines - [facility] [x] & Safe Sleep handout - [place] publication [x] Calling All Dads! Handout - [place] publication [] Breast and Nipple Care - [facility] [] Breastmilk Collection & Storage - [facility] [] Breastpump Kit Care - [facility] [] Going Back to Work - [facility] [] Preventing Engorgement - [facility] Supplies given: [] [place], soap and basin for breastpump cleaning [] Insurance pump provided through [employer] [] Insurance pump provided through [employer] Explained to patient, patient verbalizes understanding. Signed: Debby Stanley RN, BSN, IBCLC * Ramila Elmore, BUFFING [employer]NER [employer] COUNTER - CN - 05/23/2020 7:02 AM EDT C/S Labor and Delivery Post Progress Note SUBJECTIVE: 1st day postop repeat , requests vistaril she takes for anxiety and nicotine patch Flatus:Present BM:no Diet: Tolerating regular diet Ambulation: Ambulateswithout difficulty OBJECTIVE: Vitals: BP (!) 110/59 Pulse 59 Temp 98 F (36.7 C) Resp 14 Ht 5' 8.5 (1.74 m) Wt 238 lb 12.8 oz (108.3 kg) LMP 08/11/2019 (Exact Date) SpO2 100% Unknown BMI 35.78 kg/m Patient Vitals for the past 24 hrs: BP Temp Temp src Pulse Resp SpO2 Height Weight 05/23/20 0318 (!) 110/59 98 F (36.7 C) 59 14 05/22/20 2337 131/70 97.7 F (36.5 C) 59 16 05/22/20 2051 131/76 97.6 F (36.4 C) 78 14 05/22/202035 131/73 97.7 F (36.5 C) 57 16 05/22/202020 127/61 97.8 F (36.6 C) 60 14 05/22/202005 134/69 97.8 F (36.6 C) 58 16 05/22/201950 (!) 142/81 98 F (36.7 C) 57 16 05/22/201935 132/67 97.9 F (36.6 C) 60 14 05/22/20 193 100 % 05/22/201920 (!) 157/70 97.5 F (36.4 C) 60 16 100 % 05/22/20 191 (!) 146/78 97.5 F (36.4 C) Oral 60 14 05/22/20 1900 137/88 56 14 100 % 05/22/20 1855 132/74 65 16 100 % 05/22/20 1850 (!) 141/80 65 18 100 % 05/22/20 1843 (!) 141/83 97.4 F (36.3 C) Oral 60 16 100 % 05/22/20 1641 5' 8.5 (1.74 m) 238 lb 12.8 oz (108.3 kg) 05/22/20 1614 128/87 98 05/22/20 1558 132/77 81 05/22/20 1543 (!) 135/91 95 05/22/20 1529 (!) 145/85 97.5 F (36.4 C) Oral 89 18 ABDOMEN: No scars, normal bowel sounds, soft, non-distended, non-tender, no masses palpated, no hepatosplenomegally INCISION: dressing in place, clean, dry and intact GENITAL/URINARY: External Genitalia: General appearance; normal, Hair distribution; normal, Lesionsabsent Cor: RRR no Murmurs Pulmonary: clear to auscultation anterior and posterior Extremities: no Clubbing cyanosis or ecchymosis DATA: CBC: Lab Results Component Value Date WBC 14.0 05/22/2020 RBC 3.75 05/22/2020 HGB 9.9 05/23/2020 HCT 35.2 05/22/2020 MCV 93.9 05/22/2020 MCH 30.9 05/22/2020 MCHC 33.0 05/22/2020 RDW 14.6 05/22/2020 PLT 245 05/22/2020 MPV 11.1 05/22/2020 ASSESSMENT: Active Problems: Status post repeat low transverse section Plan: stable Hx of unilateral salpingectomy Plan: Gestational diabetes Plan: delivered, follow fsbs S/P C/S post op day # 1 PLAN: Routine orders and instructions, watch sugars * Migdalia Osorio RN - 05/22/2020 7:15 PM EDT 1843 Pt brought to room with baby on chest, vitals/incision/fundus/lochia/perineum checks initiated every 5 minutes x3, and every 15 minutes x8. Criss score 9/10 upon arrival to recovery. 1850 Pt nursing baby at this time 1905 Report given to NU Fletcher * Lyndsey Harp RN - 05/22/2020 4:55 PM EDT Pt's lower abdomen and upper pubic area clipped. RN washes her abdomen with CHP soap. * Lyndsey Harp RN - 05/22/2020 4:15 PM EDT Pt in bathroom doing pre-surgical wipes, helping her. * Alie Pina RN - 05/22/2020 4:[address] Helms ordered for pt to be admitted for a c/s at this time. * Alie Pina RN - 05/22/2020 4:05 PM EDT RN notified Dr. Helms about pt's arrival and complaints. * Alie Pina RN - 05/22/2020 3:21 PM EDT Pt arrived to the unit with FOB with complaints of contractions and nausea. Pt taken to 204, given gown, and urine cup for UA. documented in this encounter* Tere Mckeon RPH - 06/15/2020 12:18 PM EDT [facility] Inpatient Medication Education Note Patient admitted for PE. Medications reviewed with the patient include: Eliquis (patient education monograph provided), hydrocodone/acetaminophen, morphine, pantoprazole. Patient provided with Eliquis hris specialist coupons. Patient education provided when necessary to include potential medication related side effects withacknowledgement of understanding. Tere Mckeon, 06/15/2020, 12:16 PM * Laura Yu RN - 06/15/2020 4:52 AM EDT Vitals obtained, patient having pain, she request the morphine as it helped and the oral route did not. Morphine 2mg IV given for 8/10 chest pain. * Laura Yu RN - 06/15/2020 12:01 AM EDT Reassessment and vitals completed. Patients pain is tolerable at a 2/10. See charting for full assessment and vitals * Laura Yu RN - 06/14/2020 10:46 PM EDT Patient given prn morphine IV for c/o chest pain. 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 Physician notified of allergy to Toradol. Order received * Laura Yu RN - 06/14/2020 9:57 PM EDT Patient still has pain, rating it at a 7/10, patient would like to give meds longer and see if she gets more relief. * Laura Yu RN - 06/14/2020 8:54 PM EDT Patient still having chest pain. Medicated with norco prn. She did state it helped the last time she took it. Pain is unchanged just still present. Will continue to monitor. Patient educated to call for any worsening pain or if she develops SOB. * Laura Yu RN - 06/14/2020 7:05 PM EDT Patient assessment and vitals completed. Patient is having chest pain upper right and left side. Patient will be medicated with tylenol as that is all that is due at this time. She denies SOB but does have pain with deep breathing. Patient lungs are diminished. Patient denies any further needs, will continue to monitor * Riya Hurd LSW - 06/14/2020 5:07 PM EDT Met with Patient this p.m. to discuss discharge planning. She is a 24 year old , white female, admitted with a PE. Patient recently gave to her third child via section. Patient also has diagnosis of anxiety. Her is asleep in the room at this time. Patient is alert and oriented, pleasant and talkative, states that she wishes to be discharged home with her family when deemed medically stable. [place] with her and their 3 small children ages a 4, 2 and . She notes good informal support network including her mother, mother in law and sister in law. Patient uses no DME but does have a rescue inhaler that she uses as needed. She doesnot work outside of her home but is employed by an [employer] in [place]. Patient isindependent with her ADL's and manages her own household. PCP is Dr. Wells. Patient reports having no difficulty with affording her medications. Discharge plan is home when stable. She does voice interest in pursuing medical directives but wants to review forms prior to executing. Copies of documents provided for her use. Patient is a 'Full Code' status at this time. LOAN INTERVIEWER to monitor for any/all needs and assist as appropriate. LALO Teresa 06/14/2020 * Tony Gonzalez RN - 06/14/2020 12:49 PM EDT [place] given for pain * Rob Knutson RD, LD - 06/14/2020 8:06 AM EDT Comprehensive Nutrition Assessment Type and Reason for Visit: Initial Nutrition Recommendations/Plan: Encourage oral intakes Nutrition Assessment: Predicted suboptimal nutrition intakes r/t alteration in GI status, AEB weight losses throughout , now post 3 weeks. ~15% weight losses from reported pregravid weights of 260#, with a more acute loss of 7.8% with childbirth. 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 Meal well taken this AM, however, observed spouse eating off tray as well, uncertain how much patient actually ate. Malnutrition Assessment: Malnutrition Status: At risk for malnutrition (Comment) Context: Acute Illness Findings of the 6 clinical characteristics of malnutrition: Energy Intake: Unable to assess Weight Loss: 1 - 5% over 1 month Body Fat Loss: No significant body fat loss Muscle Mass Loss: No significant muscle mass loss Fluid Accumulation: No significant fluid accumulation Md [facility] Strength: Not Performed Estimated Daily Nutrient Needs: Energy (kcal): 6885-6712(18-22); Weight Used for Energy Requirements: Current Protein (g): 76-83(1.2-1.3); Weight Used for Protein Requirements: [place] Fluid (ml/day): 2200; Weight Used for Fluid Requirements: Current Nutrition Related Findings: obese Wounds: None Current Nutrition Therapies: DIET GENERAL; No Added Salt (3-4 GM) Anthropometric Measures: Height: 5' 8 (172.7 cm) Current Body Weight: 220 lb 3.2 oz (99.9 kg) Admission Body Weight: 215 lb (97.5 kg) Usual Body Weight: 260 lb (117.9 kg)(pregravid weight) [place] Body Weight: 140 lbs; % [place] Body Weight 157.3 % BMI: 33.5 Adjusted Body Weight: ; No Adjustment BMI Categories: Obese Class 1 (BMI 30.0-34.9) Nutrition Diagnosis: Predicted inadequate energy intake related to altered GI function as evidenced by nausea, weight loss Lab Results Component Value Date NA 138 06/13/2020 K 3.6 (L) 06/13/2020 CL 105 06/13/2020 CO2 23 06/13/2020 BUN 7 06/13/2020 CREATININE 1.05 (H) 06/13/2020 GLUCOSE 106 (H) 06/13/2020 CALCIUM 8.7 06/13/2020 PROT 6.4 02/26/2020 LABALBU 3.4 (L) 02/26/2020 BILITOT 0.22 (L) 02/26/2020 ALKPHOS 69 02/26/2020 AST 12 02/26/2020 ALT 8 02/26/2020 LABGLOM >60 06/13/2020 GFRAA >60 06/13/2020 GLOB NOT REPORTED 02/01/2020 Lab Results Component Value Date LABA1C 5.9 05/24/2020 Lab Results Component Value Date EAG 123 05/24/2020 Nutrition Interventions: Food and/or Nutrient Delivery: Continue Current Diet Nutrition Education/Counseling: No recommendation at this time Coordination of Nutrition Care: Continued Inpatient Monitoring Goals: PO >75% meals with adequate oral fluid intakes Nutrition Monitoring and Evaluation: Behavioral-Environmental Outcomes: Knowledge or Skill Food/Nutrient Intake Outcomes: Food and Nutrient Intake Physical Signs/Symptoms Outcomes: Biochemical Data, Weight Discharge Planning: Too soon to determine Contact: [phone] * Najma Sweeney RN - 06/14/2020 12:00 AM EDT Assistant Buyer gave patient a turkey lunch box. * Najma Sweeney RN - 06/13/2020 11:40 PM EDT Patient arrived in ICU room 307 from ER. Patient ambulated to bed safely. Patient rates chest pain 05/02. VS are WNL. Patient did state she would like her PCP to be notified of hospital admission, , number is in chart, will pass on to day shift. Assistant Buyer oriented patient to room and call light. documented in this encounter* Ye Qian - 09/26/2020 3:03 PM EST CLINICAL PHARMACY NOTE: MEDS TO [facility] Select Patient?: No Total # of Prescriptions Filled: 2 The following medications were delivered to the patient: METHYLPREDNISOLONE 4 OXYCODONE 5 Total # of Interventions Completed: 0 Time Spent (min): 0 Additional Documentation: * Debby Llanes, OT - 09/26/2020 1:44 PM EST oOccupational Therapy Occupational Therapy Initial Assessment Date: 09/26/2020 Patient Name: Dorota Swanson : 1995 Date of Service: 09/26/2020 Discharge Recommendations: Home with assist PRN OT Equipment Recommendations Equipment Needed: No Assessment Assessment: Pt demonstrated functional mobility, functional transfers and ADL task with supervision. Use or RW. Pt reports use of RW decreases pain. Pt has been completing ADLs and functional mobility independently in hospital room. Pt does not currently require skilled OT services. Pt educated to report to RN/MD if functional changes occur. Prognosis: Good Decision Making: Low Complexity OT Education: OT Role;Plan of Care;Energy Conservation Patient Education: log roll technique for bed mobility, use of RW REQUIRES OT FOLLOW UP: No Activity Tolerance Activity Tolerance: Patient Tolerated treatment well Safety Devices Safety Devices in place: Yes Type of devices: Gait belt;Left in bed;Nurse notified Restraints Initially in place: No Patient Diagnosis(es): The encounter diagnosis was Lumbar disc herniation with radiculopathy. has a past medical history of ADD (attention deficit disorder), Anxiety, Asthma, Back pain, Bladderdisorder, Borderline diabetes, Depression, Gestational diabetes mellitus, Heart abnormality, Herpessimplex virus (HSV) infection, History of miscarriage, History of PCOS, MRSA (methicillin resistantstaph aureus) culture positive, and Ovarian cyst. has a past surgical history that includes Ovary removal (06/2010); Tonsillectomy and adenoidectomy (02/2011); [place] tooth extraction (2009); laparoscopy (07-22-2012); Cystocopy (07-22-2012); Dilationand curettage of uterus; Eye surgery (12-15-2011); section (03/22/2016); Cholecystectomy, la paroscopic (N/A, 03/29/2017); and section (N/A, 05/22/2020). Restrictions Restrictions/Precautions Restrictions/Precautions: General Precautions Required Braces or Orthoses?: Yes Position Activity Restriction Other position/activity restrictions: Up with assist Subjective General Patient assessed for rehabilitation services?: Yes Family / Caregiver Present: Yes() Patient Currently in Pain: Yes Pain Assessment Pain Assessment: 0-10 Pain Level: 5 Pain Type: Acute pain Pain Location: Back Pain Orientation: Lower Vital Signs Patient Currently in Pain: Yes Social/Functional History Social/Functional History Lives With: Spouse Type of Home: House Home Layout: Two level, Able to Live on Main level with bedroom/bathroom Home Access: Stairs to enter without rails Entrance Stairs - Number of Steps: 3 Bathroom Shower/Tub: Walk-in shower Bathroom Toilet: Standard Bathroom Equipment: Grab bars in shower, Shower chair Bathroom Accessibility: Accessible Home Equipment: Rolling walker(No AD at baseline) ADL Assistance: Independent Homemaking Assistance: Independent Homemaking Responsibilities: Yes Ambulation Assistance: Independent Transfer Assistance: Independent Active Senior Manager: No Mode of Transportation: Family 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 Objective Vision: Impaired Vision Exceptions: Wears glasses at all times Hearing: Within functional limits Orientation Overall Orientation Status: Within Functional Limits Balance Sitting Balance: Supervision(Pt donned socks sitting EOB) Standing Balance: Supervision Standing Balance Time: ~10 minutes Activity: standing static in room, functional mobility around room and halls with PT Functional Mobility Functional - Mobility Device: Rolling Walker Assist Level: Supervision Functional Mobility Comments: Pt demonstrated functional mobility with supervision for safety. Pt reports feeling decreased pain when using RW. Pt with no unsteadiness throughout. ADL Feeding: Independent Grooming: Independent UE Bathing: Independent LE Bathing: Supervision UE Dressing: Independent LE Dressing: Supervision(Pt doffed/donned socks sitting EOB) Toileting: Supervision Tone RUE RUE Tone: Normotonic Tone LUE LUE Tone: Normotonic Coordination Movements Are Fluid And Coordinated: Yes Bed mobility Supine to Sit: Stand by assistance Sit to Supine: Stand by assistance Scooting: Stand by assistance Comment: Pt was taught log rolling technique with good carry over. Transfers Sit to stand: Supervision Stand to sit: Supervision Cognition Overall Cognitive Status: WFL Sensation Overall Sensation Status: WFL(Denies numbness or tingling) LUE AROM (degrees) LUE AROM : WFL Left Hand AROM (degrees) Left Hand AROM: WFL RUE AROM (degrees) RUE AROM : WFL Right Hand AROM (degrees) Right Hand AROM: WFL LUE Strength Gross LUE Strength: WFL L Hand General: 5/5 LUE Strength Comment: Grossly 5/5 RUE Strength Gross RUE Strength: WFL R Hand General: 5/5 RUE Strength Comment: Grossly 5/5 AM-PAC Score [facility] Inpatient Daily Activity Raw Score: 24 (09/26/20 134) [facility] Inpatient ADL T-Scale Score : 57.54 (09/26/20 134) ADL Inpatient [facility] 0-100% Score: 0 (09/26/201344) ADL Inpatient [facility] G-Code Modifier : CH (09/26/201344) Therapy Time Individual Concurrent Group Co-treatment Time In 0758 Time Out 0816 Minutes 18 Timed Code Treatment Minutes: 8 Minutes Debby Llanes OTR/L * Silvio Whittington, PT - 09/26/2020 12:01 PM EST Physical Therapy Facility/Department: [address] ORTHO/MED SURG Initial Assessment NAME: Dorota Swanson : 1995 Date of Service: 09/26/2020 Discharge Recommendations: No further therapy required at discharge. Assessment Assessment: The pt ambulated 100 ft with a RW x SBA. She reported that she had improved stability with the walker and also a decrease in her level of pain when compared to walking without the walker.No further PT intervention is needed at this time. Prognosis: Good Decision Making: Medium Complexity PT Education: Goals;PT Role;Plan of Care REQUIRES PT FOLLOW UP: No Activity Tolerance Activity Tolerance: Patient Tolerated treatment well Patient Diagnosis(es): The encounter diagnosis was Lumbar disc herniation with radiculopathy. has a past medical history of ADD (attention deficit disorder), Anxiety, Asthma, Back pain, Bladderdisorder, Borderline diabetes, Depression, Gestational diabetes mellitus, Heart abnormality, Herpessimplex virus (HSV) infection, History of miscarriage, History of PCOS, MRSA (methicillin resistantstaph aureus) culture positive, and Ovarian cyst. has a past surgical history that includes Ovary removal (06/2010); Tonsillectomy and adenoidectomy (02/2011); [place] tooth extraction (2009); laparoscopy (07-22-2012); Cystocopy (07-22-2012); Dilationand curettage of uterus; Eye surgery (12-15-2011); section (03/22/2016); Cholecystectomy, la paroscopic (N/A, 03/29/2017); and section (N/A, 05/22/2020). Restrictions Position Activity Restriction Other position/activity restrictions: Up with assist Vision/Hearing Vision: Impaired Vision Exceptions: Wears glasses at all times Hearing: Within functional limits Subjective General Patient assessed for rehabilitation services?: Yes Response To Previous Treatment: Not applicable Family / Caregiver Present: Yes( present) Follows Commands: Within Functional Limits Subjective Subjective: RN and pt agreeable to PT eval Pain Screening Patient Currently in Pain: Yes Pain Assessment Pain Assessment: 0-10 Pain Level: 3 Pain Location: Back Pain Orientation: Lower Vital Signs Patient Currently in Pain: Yes Orientation Orientation Overall Orientation Status: Within Normal Limits Social/Functional History Social/Functional History Lives With: Spouse Type of Home: House Home Layout: Two level, Able to Live on Main level with bedroom/bathroom Home Access: Stairs to enter without rails Entrance Stairs - Number of Steps: 3 Bathroom Shower/Tub: Walk-in shower Bathroom Toilet: Standard Bathroom Equipment: Grab bars in shower, Shower chair ADL Assistance: Independent Homemaking Assistance: Independent Homemaking Responsibilities: Yes Ambulation Assistance: Independent Transfer Assistance: Independent Mode of Transportation: Family 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,2,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)) Cognition Objective AROM RLE (degrees) RLE AROM: WNL AROM LLE (degrees) LLE AROM : WNL AROM RUE (degrees) RUE AROM : WNL AROM LUE (degrees) LUE AROM : WNL Strength RLE Strength RLE: WFL Strength LLE Strength LLE: WFL Strength RUE Strength RUE: WFL Strength LUE Strength LUE: WFL Sensation Overall Sensation Status: WFL Bed mobility Supine to Sit: Stand by assistance Sit to Supine: Stand by assistance Scooting: Stand by assistance Transfers Sit to Stand: Stand by assistance Stand to sit: Stand by assistance Ambulation Ambulation?: Yes Ambulation 1 Surface: level tile Device: Rolling Walker Assistance: Stand by assistance Distance: amb 100 ft with a RW x SBA Balance Posture: Good Sitting - Static: Good Sitting - Dynamic: Fair Standing - Static: Fair Standing - Dynamic: Fair Plan Plan Times per week: DC PT Safety Devices Type of devices: Call light within reach, Left in bed, Nurse notified G-Code OutComes Score AM-PAC Score [facility] Inpatient Mobility Raw Score : 20 (09/26/20 114) AM-[facility] Inpatient T-Scale Score : 47.67 (09/26/20 114) Mobility Inpatient CMS 0-100% Score: 35.83 (09/26/20 114) Mobility Inpatient CMS G-Code Modifier : CJ (09/26/201146) Goals Short term goals Time Frame for Short term goals: No PT needs at this time DC PT Therapy Time Individual Concurrent Group Co-treatment Time In 0755 Time Out 0815 Minutes 20 Silvio Whittington, PT * Ray Johnson MD - 09/26/2020 9:00 AM EST [facility] CDU / OBSERVATION eNCOUnter Attending NOte I performed a history and physical examination of the patient and discussed management with the resident. I reviewed the resident s note and agree with the documented findings and plan of care. Any areas of disagreement are noted on the chart. I was personally present for the [place] portions of any procedures. I have documented in the chart those procedures where I was not present during the [place] portions. I have reviewed the nurses notes. I agree with the chief complaint, past medical history, past surgical history, allergies, medications, social and family history as documented unless otherwisenoted below. The Family history, social history, and ROS are effectively unchanged since admission unless noted elsewhere in the chart. Patient with improvement today per nursing notes. Patient has been up and ambulatory. Patient is voiding without post void residuals. Neurosurgery has signed off. MRI result L4-5 central/right paracentral disc extrusion abutting descending L5 nerve root but not causing significant canal or neural foraminal compromise. Small disc protrusions T7-8 and T8-9 We will work with patient with pain control and PT OT options. Anticipating discharge today. Dorota Swanson was evaluated today and a DME order was entered for a wheeled walker because she requires this to successfully complete daily living tasks of ambulating. A wheeled walker is necessary due to the patient's unsteady gait, upper body weakness, and inability to olive picker an ambulation device; and she can ambulate only by pushing a walker instead of a lesser assistive device such as a cane, crutch, or standard walker. The need for this equipment was discussed with the patient and she understands and is in agreement. Ray Johnson MD Attending Emergency Physician Edilia Hernandez RN - 09/26/2020 6:22 AM EST Taylor was discontinued last evening. Up several times to bathrooml voiding good amts. Bladder scanned for 37 ml PVR, Will continue to monitor Edilia Hernandez RN - 09/26/2020 6:21 AM EST Up ambulated 2 laps in bauman with walker and assist x 1. Tolerated well Voices less numbness in bilat legs this am. Brandi Vincent RN - 09/25/2020 7:15 PM EST Taylor pulled per hospital policy and neurosurg recommendation. * Halina Rdz RN - 09/25/2020 6:37 PM EST Patient walked once around the unit standby assist with a walker for stability. Patient tolerated very well. * Ray Johnson MD - 09/25/2020 9:50 AM EST [facility] CDU / OBSERVATION eNCOUnter Attending NOte I performed a history and physical examination of the patient and discussed management with the resident. I reviewed the resident s note and agree with the documented findings and plan of care. Any areas of disagreement are noted on the chart. I was personally present for the [place] portions of any procedures. I have documented in the chart those procedures where I was not present during the [place] portions. I have reviewed the nurses notes. I agree with the chief complaint, past medical history, past surgical history, allergies, medications, social and family history as documented unless otherwisenoted below. The Family history, social history, and ROS are effectively unchanged since admission unless noted elsewhere in the chart. [facility] secondary to back pain after picking up child. Patient with MRI done. Neurosurgery involved. Patient with L4-5 central right paracentral disc extrusion abutting descending L5 nerve root not causing significant canal narrowing of mental compromise. Small disc protrusions at T7-8 and T8-9. For reevaluation by neurosurgery. Pain control. Patient for PT OT evaluation. Will ambulate with assistance. Ray Johnson MD Attending Emergency Physician documented in this encounter* Lyndsey Harp RN - 04/29/2020 1:50 PM EDT Obstetrical outpatient discharge instructions explained to pt, pt v.u. kick count reviewed, pt v.u. * Lyndsey Harp RN - 04/29/2020 1:30 PM EDT RN calls Anjel NEVES and reports that pt here, RN spoke with Dr. Uribe shortly after pt arrived aboutpt complaints. Dr Uribe in surgery right now. RN reports urinalysis results, efm strip, tachycardia upon arrival, pt smoker, heart rate 155 for last hour, pt complaints of incisional and back pain, irregular contractions noted and pt due for next dose of procardia and does not have it with her. CNM orders RN to do SVE and give pt one dose of procardia and if no cervical change, pt may be discharged. * Lyndsey Harp RN - 04/29/2020 12:[address] Uribe present in [place], RN updates her that pt here with c/o abd cramping and incisional pain. Pt was in office yesterday for NST. * Lyndsey Harp RN - 04/29/2020 12:01 PM EDT Pt here with complaints of cramping and pain where my old csection scar is . Pt rates cramping 6-7 on scale 1-10, rates incisional pain 7 , states she tried to take a warm bath and took tylenol last night but pain has gotten worse. Pt denies leaking of fluid, denies vaginal bleeding, reports + movement. Pt denies headache at present, denies blurred vision, denies epigastric pain. Pt re ports that Mondays she has ultrasounds in [place] and for NSTs weekly in [place]. Pt states she did not have this pain yesterday when at office for her ultrasound. Pt states she is taking procardia currently for ptl and is an insulin dependent diabetic during . Pt denies sexual activity in last 2 days. 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 documented in this encounter* Ana Solares, NU - 04/03/2020 12:49 AM EDT DC instructions reviewed with pt. Pt states she just wants to go home and sleep. EFM off. Pt up anddressed. * Ana Solares RN - 04/03/2020 12:[address] Uribe phoned on cell. Given CBC and TSH results. NOtified that HR now running high 90's to low 100's. Notified that pt continues to have ctx every 2-4 minutes same as arrival. Pt resting comfortably in bed playing on phone. DC orders rec at this time. * Ana Solares RN - 04/03/2020 12:02 AM EDT Blood work drawn and sent to lab. * Ana Solares RN - 04/02/2020 11:[address] Uribe phoned on cell and notified that pts pulse is back up to 121. Orders rec. * Ana Solares RN - 04/02/2020 10:58 PM EDT Pt updated on urine results and plan of care. Pt requesting tylenol with procardia as last time it gave her a BARBOSA. * Ana Solares RN - 04/02/2020 10:[address] Uribe given US results. * Ana Solares RN - 04/02/2020 10:[address] Uribe at desk. Updated on pts recent BP's and HR. Noted that pt was given a script for procardia last time she was here and that pt states she is taking it TID as directed. FHR has 10 by 10 accels as appropriate for gestation. * Ana Solares RN - 04/02/2020 10:[address] Uribe at desk. Updated on pts arrival. at 30 3/7 weeks with c/o ctx since 2099. Pt is GDM and states she has heart problems with this and sees Dr Gr on Saturday. Pt is noted to be having mild irregular ctx every 1-3 minutes lasting 30-50 seconds. Pts BP and heart rate are elevatedbut pt relates she did just smoke on the way here. Orders rec. * Ana Solares RN - 04/02/2020 10:06 PM EDT Pt noted to be tachycardic. Pt states that she is a smoker and had a cigarette on the way here. Pt states that she is GDM and that she has heart problems' with this and see's Dr Gr on Saturday. Pt states that she takes a baby ASA daily related to her pre-eclampsia with her previous . * Ana Solares RN - 04/02/2020 10:00 PM EDT Pt presents to unit with c/o ctx that started around 2099. Pt states she was just sitting on couch when they started. Pt denies any vaginal bleeding and relates good FM. documented in this encounter Additional Source Comments Reason for Visit (unrecogniz ed section and content) Reason Comments Leg Pain RLE, tender to touch Status Reason Specialty Diagnoses / Procedures Referred By Contact Referred To Contact Open Vascular Lab Diagnoses Leg swelling Procedures [facility] DUPLEX EXTREM VENOUS,UNI OR LTD Rod Conte MD [address] [place] [address] [place] [address] [facility] Vascular Lab [address] [place] [id number] Reason Comments Leg Pain left lower leg pain and swelling. Was seen about 1 week ago for same complaint. Had venous doppler, was negative for DVT Nausea Chest Pain Reason Comments Pelvic Pain 18 weeks , o nset 3 days ago Reason Comments Abdominal Pain Status Reason Specialty Diagnoses / Procedures Referred By Contact Referred To Contact Not Required - [facility] Radiology Diagnoses RUQ abdominal tenderness Procedures US ABDOMINAL LIMITED Farhat Llanes MD [address] [place] [address] [facility] Ul[facility] [address] [place] [address] Reason Comments Dizziness Onset 1400, worse wi th movement Abdominal Cramping Right side, onset 14 00 with nausea. Pt is 21 weeks OB Reason Comments Fall pt states she fell g oing up the steps this am at home. Pt states she is 14 weeks and hit her abdomen Status Reason Specialty Diagnoses / Procedures Referred By Contact Referred To Contact Not Required - [facility] Cardiology / EKG Diagnoses Palpitations Lightheadedness SOB (shortness of breath) Tachycardia Episodic lightheadedness Procedures Holter monitor 24 hour HC HOLTER MONITOR Silvio Gr MD [address] [place] [address] [facility] Ekg [address] [place] [address] Status Reason Specialty Diagnoses / Procedures Referred By Contact Referred To Contact Closed Cardiology / Echocardiography Diagnoses Palpitations Lightheadedness SOB (shortness of breath) Tachycardia Episodic lightheadedness Procedures Echo 2D w doppler w color complete HC 2D ECHO WITHOUT CONTRAST - WITH DOP/COLOR FLOW Silvio Gr MD [address] [place] [address] [facility] Echo [address] [place] [address] Reason Comments Headache Reason Comments Abdominal Cramping Reason Comments Contractions Status Reason Specialty Diagnoses / Procedures Referred By Contact Referred To Contact Closed Cardiology / EKG Diagnoses History of pre-eclampsia Palpitations LVH (left ventricular hypertrophy) Tachycardia Procedures Holter monitor 24 hour Silvio Gr MD [address] [place] [address] [facility] Ekg [address] [place] [address] Reason Comments Non-stress Test Reason Comments Nausea Contractions Status Reason Specialty Diagnoses / Procedures Referre d By Contact Referred To Contact Diagnoses Gestational diabetes Repeat C/S Procedures CT DELIVERY ONLY SECTION Michael Helms MD [address] [facility] [address] [place] [address] [employer] Reason Comments Chest Pain right sided wal ches t pain started today Status Reason Specialty Diagnoses / Procedures Referre d By Contact Referred To Contact Diagnoses PE (pulmonary thromboembolism) (HCC) PE (pulmonary thromboembolism) (HCC) Dedra Pineda MD [address] [facility], [place] [address] [employer] Reason Comments Fall Onset 2 days ago, hi tting head on counter. Pt states she has a headache and is taking eliquis twice a day. Pt denies LOC Reason Comments Abdominal Pain right sided abd pain , onset last night Reason Comments Back Pain Pt c/o lower back pa in after twisting it 2 days ago Reason Comments Back Pain complains of pins an d needles in legs bilateral right side is worse, patient claims she lost bladder control earlier today Reason Comments Numbness Abnormal CT Status Reason Specialty Diagnoses / Procedures Referre d By Contact Referred To Contact Diagnoses Lumbar radiculopathy Ray Johnson MD [facility] [place] [address] [facility] Reason Comments Abscess right groin, onset a pprox 1 week ago Reason Comments Abdominal Pain Right side, upper an d lower, radiating to back and epigastric area per pt. Onset yesterday Status Reason Specialty Diagnoses / Procedures Referre d By Contact Referred To Contact Diagnoses Menorrhagia MENORRHAGIA Procedures CT HYSTEROSCOPY,W/ENDO BX CT HYSTEROSCOPY,W/ENDOMETR IAL ABLATION DILATATION AND CURETTAGE HYSTEROSCOPY CAUTERY ABLATION-NOVASURE Maryam Chávez F, DO [address] [place] [address] [facility] Status Reason Specialty Diagnoses / Procedures Referred By Contact Referred To Contact Pending Review Radiology Diagnoses Abdominal pain, epigastric Procedures FL UGI W AIR CONTRAST Yossi Wells MD [address] [place] [address] Reason Comments Cough onset 05/28, taking zp ack, negative covid. Reason Comments Cough Onset this AM, dry. Loss of taste/smell. 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 Denies head injuries, LOC n&v. Reason Comments Abdominal Pain Pt having diarrhea, abdominal pain and nausea since night. Diarrhea Nausea Reason Comments Cough Cough and congestion x 1 month Reason Comments Abdominal Pain Patient presents amb ulatory to the emergency department with complaint of chronic bilateral lower abdominal pain. Patient reports she has a history of Adenomyosis and PCOS. Patient is schedule for hysterectomy in October with Dr Uribe here at [place]. Pain became severe earlier this evening along with nausea Reason Comments Pelvic Pain Suprapubic pain, int ermittent x 2 years. Onset yesterday. Pt reports history of Endometriosis having surgery febuary 20 hysterctomy Shortness of Breath Reason Comments Abdominal Pain Low mid abdominal pa in, onset this AM. Pt reports history of endometriosis and her period began yesterda Specialty Diagnoses / Procedures Referred By Alie johnson Referred To Contact Diagnoses Dysmenorrhea DYSMENORRHEA, PELVIC PAIN, DYSPAREUNIA Procedures CT LAPS TOTAL HYSTERECT 250 GM/< W/RMVL TUBE/OVARY HYSTERECTOMY VAGINAL LAPAROSCOPIC ROBOTIC, POSSIBLE BSO, POSSIBLE LAPAROSCOPIC COLPOPEXY Maryam Chávez, DO [address] [place] [address] [facility] [id number] [place] [address] Referral ID Status Reason Start Date Expiration Date Visits Re quested Visits Authorized [id number] 1 Reason Comments Chest Pain Onset today, history of PE. History of recent surgery, hysterectomy, Nov 12, 2022 Shortness of Breath Reason Comments Hyperglycemia Patient's blood suga r was 463 at home. 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 Pt states red streaks noted in diarrhea onset last PM. Pt denies urinary complaints, no emesis Reason Comments Chest Pain Patient states she h as been having chest pain since this morning after she woke up with numbness to the left arm.Patient went back to sleep and woke with chest pain still ongoing. Reason Comments Nausea With vomiting and di arrhea started today. Not around anyone ill. Abdominal Pain Left lower abdominal pain also started today INFORMATION SOURCE (unrecogn ized section and content) DATE CREATED AUTHOR 11/26/2019 [facility] DATE CREATED AUTHOR AUTHOR'S ORGANIZ ATION 12/29/2022 [facility] DATE CREATED AUTHOR AUTHOR'S ORGANIZ ATION 01/01/2023 [facility] DATE CREATED AUTHOR AUTHOR'S ORGANIZ ATION 09/06/2023 [facility] DATE CREATED AUTHOR AUTHOR'S ORGANIZ ATION 04/09/2024 [facility] DATE CREATED AUTHOR AUTHOR'S ORGANIZ ATION 04/10/2024 [facility] Ordered Prescriptions (unrec ognized section and content) Prescription Sig Dispensed Refills Start Date End Da te cyclobenzaprine (FLEXERIL) 10 MG tablet Take 1 tablet by mouth 3 times daily as needed for Muscle spasms 21 tablet 0 09/17/2020 09/27/2020 predniSONE (DELTASONE) 10 MG tablet Take 5 tablets by mouth daily for 4 days 20 tablet 0 09/17/2020 09/21/2020 Prescription Sig Dispensed Refills Start Date End Da te oxyCODONE (ROXICODONE) 5 MG immediate release tabletIndications:Lumbar disc herniation with radiculopathy Take 1 tablet by mouth every 6 hours as needed for Pain for up to 3 days. Intended supply: 3 days. Take lowest dose possible to manage pain 12 tablet 0 09/26/2020 09/29/2020 methylPREDNISolone (MEDROL, ANNETTE,) 4 MG tablet Take by mouth. 1 kit 0 09/26/2020 10/02/2020 Prescription Sig Dispensed Refills Start Date End Da te HYDROcodone-acetaminoph en (NORCO) 5-325 MG per tabletIndications:Absce ss of right thigh Take 1 tablet by mouth every 6 hours as needed for Pain for up to 3 days. Intended supply: 3 days. Take lowest dose possible to manage pain 12 tablet 0 11/28/2020 12/01/2020 clindamycin (CLEOCIN) 300 MG capsule Take 1 capsule by mouth 4 times daily for 10 days 40 capsule 0 11/28/2020 12/08/2020 Prescription Sig Dispensed Refills Start Date End Da te HYDROcodone-acetaminophe n (NORCO) 5-325 MG per tabletIndications:Post-o p pain Take 1 tablet by mouth every 4 hours as needed for Pain for up to 3 days. Intended supply: 3 days. Take lowest dose possible to manage pain 18 tablet 0 03/20/2021 03/23/2021 Prescription Sig Dispensed Refills Start Date End Da te promethazine-dextrometho rphan (PROMETHAZINE-DM) 6.25-15 MG/5ML syrup Take 5 mLs by mouth 4 times daily as needed for Cough 150 mL 0 06/02/2021 06/09/2021 albuterol sulfate HFA (PROVENTIL HFA) 108 (90 Base) MCG/ACT inhaler Inhale 2 puffs into the lungs every 6 hours as needed for Wheezing 18 g 3 06/02/2021 predniSONE (DELTASONE) 20 MG tablet Take 1 tablet by mouth daily for 5 days 5 tablet 0 06/02/2021 06/07/2021 Prescription Sig Dispensed Refills Start Date End Da te ondansetron (ZOFRAN ODT) 4 MG disintegrating tablet Take 1 tablet by mouth every 8 hours as needed for Nausea or Vomiting 12 tablet 0 03/11/2022 Prescription Sig Dispensed Refills Start Date End Da te predniSONE (DELTASONE) 20 MG tablet Take 1 tablet by mouth 2 times daily for 5 days 10 tablet 0 07/08/2022 07/13/2022 doxycycline hyclate (VIBRA-TABS) 100 MG tablet Take 1 tablet by mouth 2 times daily for 10 days 20 tablet 0 07/08/2022 07/18/2022 Prescription Sig Dispensed Refills Start Date End Da te HYDROcodone-acetaminophe n (NORCO) 5-325 MG per tabletIndications:Lower abdominal pain,Endometriosis Take 1 tablet by mouth every 6 hours as needed for Pain for up to 3 days. Intended supply: 3 days. Take lowest dose possible to manage pain Max Daily Amount: 4 tablets 10 tablet 0 09/28/2022 10/01/2022 Prescription Sig Dispensed Refills Start Date End Da te HYDROcodone-acetaminophe n (NORCO) 5-325 MG per tabletIndications:Endome triosis Take 1 tablet by mouth every 8 hours as needed for Pain for up to 3 days. Intended supply: 5 days. Take lowest dose possible to manage pain Max Daily Amount: 3 tablets 15 tablet 0 10/05/2022 10/08/2022 Prescription Sig Dispensed Refills Start Date End Da te ondansetron (ZOFRAN) 4 MG tablet Take 1 tablet by mouth 3 times daily as needed for Nausea or Vomiting 15 tablet 0 11/01/2022 Prescription Sig Dispensed Refills Start Date End Da te acetaminophen-codeine (TYLENOL/CODEINE #3) 300-30 MG per tabletIndications:Post-o p pain Take 1 tablet by mouth every 4 hours as needed for Pain for up to 5 days. Intended supply: 5 days. Take lowest dose possible to manage pain Max Daily Amount: 6 tablets 20 tablet 0 11/12/2022 11/17/2022 Prescription Sig Dispensed Refills Start Date End Da te promethazine (PHENERGAN) 25 MG tablet Take 1 tablet by mouth every 6 hours as needed for Nausea 20 tablet 0 03/23/2023 03/30/2023 Prescription Sig Dispensed Refills Start Date End Da te ondansetron (ZOFRAN-ODT) 4 MG disintegrating tablet Take 1 tablet by mouth 3 times daily as needed for Nausea or Vomiting 21 tablet 0 11/24/2023 dicyclomine (BENTYL) 20 MG tablet Take 1 tablet by mouth 3 times daily as needed (abdominal pain) 20 tablet 0 11/24/2023 Prescription Sig Dispensed Refills Start Date End Da te ondansetron (ZOFRAN) 4 MG tablet Take 1 tablet by mouth every 8 hours as needed for Nausea 20 tablet 0 01/04/2024 metoclopramide (REGLAN) 10 MG tablet Take 1 tablet by mouth 4 times daily 120 tablet 0 01/04/2024 Prescription Sig Dispensed Refills Start Date End Da te metoclopramide (REGLAN) 10 MG tablet Take 1 tablet by mouth 4 times daily 30 tablet 0 02/05/2024 Scheduled Active and Recently Administ ered Medications (unrecognized section and content) Medication Order 03/18/2021 03/19/2021 03/20/2021 acetaminophen (TYLENOL) tablet 650 mg (COMPLETED) 650 mg, Oral, ONCE, On Sat03/20/21 at 1245, For 1 dose, Maximum dose of acetaminophen is 4000 mg from all sources in 24 hours., Pre-op (day of surgery) 1300 (Given - Provid er: Vandana Avitia, NU) dimenhyDRINATE (DRAMAMINE) tablet 50 mg (COMPLETED) 50 mg, Oral, ONCE, On Sat03/20/21 at 1245, For 1 dose, Pre-op (day of surgery) 1301 (Given - Provid er: Vandana Avitia, NU) Continuous Medication Order 03/18/2021 03/19/2021 03/20/2021 lactated ringers infusion Intravenous, at 100 mL/hr, CONTINUOUS, Starting on Sat03/20/21 at 1245, Pre-op (day of surgery) 1300 (New Bag - Prov ider: Vandana Avitia RN)1338 (NoRateChange - Provider: Maryam Encinas DO)1407 (Rate/Dose Change - Provider: Naima Aj APRN - PL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)1456 (Stopped - Provider: Aliyah Rangel RN) PRN Medication Order 03/18/2021 03/19/2021 03/20/2021 fentaNYL (SUBLIMAZE) injection 25 mcg 25 mcg, Intravenous, EVERY 5 MIN PRN, Pain Moderate (4-6), Starting on Sat03/20/21 at 1333, For 4 doses, Phase I - Secondary therapy to be used after all initial moderate pain medication doses have been administered., PACU only fentaNYL (SUBLIMAZE) injection 50 mcg 50 mcg, Intravenous, EVERY 5 MIN PRN, Pain Severe (7-10), Starting on Sat03/20/21 at 1333, For 4 doses, Phase I - Secondary therapy to be used after all initial severe pain medication doses have been administered., PACU only metoclopramide (REGLAN) injection 10 mg 10 mg, Intravenous, ONCE PRN, Nausea, Starting on Sat03/20/21 at 1333, For 1 dose, Secondary antiemetic therapy., PACU only ondansetron (ZOFRAN) injection 4 mg 4 mg, Intravenous, ONCE PRN, Nausea, Starting on Sat03/20/21 at 1333, For 1 dose, Initial antiemetic therapy., PACU only opium-belladonna (B&O SUPPRETTES) 16.2-60 MG suppository (CANCELED) PRN, Starting on Sat03/20/21 at 1425, Intra-op 1425 (Given - Provid er: Maryam Encinas, ) oxyCODONE-acetaminophen (PERCOCET) 5-325 MG per tablet 2 tablet (COMPLETED) 2 tablet, Oral, PRN, Pain Severe (7-10), Starting on Sat03/20/21 at 1336, For 1 dose, PHASE II, PACU only 1437 (Given - Provid er: Aliyah Rangel RN) No Frequency Medication Order 03/18/2021 03/19/2021 03/20/2021 opium-belladonna (B&O SUPPRETTES) 16.2-30 MG suppository Starting on Sat03/20/21 at 1353, For 1 dose, Nancy Lobo M: cabinet override 1400 (Due) Scheduled Medication Order 05/31/2021 06/01/2021 06/02/2021 albuterol (PROVENTIL) nebulizer solution 2.5 mg (COMPLETED) 2.5 mg, Nebulization, ONCE, On Sat06/02/21 at 2100, For 1 dose, 5 years of Age or greater 2112 (Given - Provid er: Becca Elmore RCP) predniSONE (DELTASONE) tablet 20 mg (COMPLETED) 20 mg, Oral, ONCE, On Sat06/02/21 at 2100, For 1 dose 2103 (Given - Provid er: Gina Fuentes RN) Scheduled Medication Order 12/03/2021 12/04/2021 12/05/2021 0.9 % sodium chloride bolus 1,000 mL, IntraVENous, at 1,000 mL/hr, Administer over 1 Hours, ONCE, On Sat12/05/21 at 0030, For 1 dose 0030 (Due) PRN Medication Order 01/02/2022 01/03/2022 01/04/2022 ibuprofen (ADVIL;MOTRIN) tablet 400 mg 400 mg, Oral, EVERY 6 HOURS PRN, Starting on Emiliana 01/04/22 at 1922, Until Discontinued, Pain Mild (1-3), Do not crush or chew. 1927 (Given - Provid er: Memo Mccrary RN) Scheduled Medication Order 03/09/2022 03/10/2022 03/11/2022 0.9 % sodium chloride bolus (COMPLETED) 1,000 mL (8.82 mL/kg), IntraVENous, at 1,000 mL/hr, Administer over 1 Hours, ONCE, On 03/11/22 at 0115, For 1 dose 0126 (New Bag - Prov ider: Helen Esqueda RN)0315 (Stopped - Provider: Helen Esqueda RN) dicyclomine (BENTYL) injection 20 mg (COMPLETED) 20 mg, IntraMUSCular, ONCE, 1 dose, On 03/11/22 at 0145 0138 (Given - Provid er: Helen Esqueda RN) HYDROcodone-acetaminophen (NORCO) 5-325 MG per tablet 1 tablet (COMPLETED) 1 tablet, Oral, ONCE, 1 dose, On 03/11/22 at 0215, Maximum dose of acetaminophen is 4000 mg from all sources in 24 hours. 0211 (Given - Provid er: Jessenia Ryan RN) ondansetron (ZOFRAN) injection 4 mg (COMPLETED) 4 mg, IntraVENous, ONCE, 1 dose, On 03/11/22 at 0115 0126 (Given - Provid er: Helen Esqueda RN) PRN Medication Order 03/09/2022 03/10/2022 03/11/2022 iopamidol (ISOVUE-370) 76 % injection 75 mL (COMPLETED) 75 mL, IntraVENous, IMG ONCE PRN, 1 dose, Starting on 03/11/22 at 0206, Until 03/11/22 at 0211, Other 0211 (Given - Provid er: Alesia Lira) Scheduled Medication Order 07/06/2022 07/07/2022 07/08/2022 doxycycline hyclate (VIBRAMYCIN) capsule 100 mg (COMPLETED) 100 mg, Oral, ONCE, 1 dose, On 07/08/22 at 1930, Antimicrobial Indications: Other, Other Abx Indication: bronchitis, This medication can interact with tube feedings (TF)- obtain MD order to manage. Recommend holding TF for 1 h before and 2 h after dose. Take 1 h before or 2 h after dairy, calcium, iron, magnesium, aluminum or zinc. 1935 (Given - Provid er: Katarzyna Head RN) predniSONE (DELTASONE) tablet 20 mg (COMPLETED) 20 mg, Oral, ONCE, 1 dose, On 07/08/22 at 1930 193 (Given - Provid er: Katarzyna Head RN) PRN Medication Order 07/06/2022 07/07/2022 07/08/2022 iopamidol (ISOVUE-370) 76 % injection 75 mL (COMPLETED) 75 mL, IntraVENous, IMG ONCE PRN, 1 dose, Starting on 07/08/22 at 1847, Until 07/08/22 at 1851, Other 1850 (Given - Provid er: Sarika Martin) Scheduled Medication Order 09/26/2022 09/27/2022 09/28/2022 0.9 % sodium chloride bolus (COMPLETED) 1,000 mL (8.82 mL/kg), IntraVENous, at 495.9 mL/hr, Administer over 121 Minutes, ONCE, On Emiliana 09/27/22 at 2330, For 1 dose, For adult patients weighing > 55 kg (120 lbs.) and less than <50 years of age initiate 0.9NS at 500 mL/ hr. All bolus orders are to be given over 10 to 15 minutes 2340 (New Bag - Provider: Mouna Olmos RN) 0035 (Stopped - Provider: Mouna Shah RN) hydrocodone-acetaminophen (NORCO) tablet 5-325 mg (STARTER PACK) This order is for a take home starter pack of medication. Please document Not Given with a reason of other on the MAR along with a comment of sent home with patient. 0128 (Not Given - Provider: Mouna Olmos RN - Reason: Other - Comment: SENT HOME WITH PATIENT) morphine (PF) injection 2 mg (COMPLETED) 2 mg, IntraVENous, ONCE, 1 dose, On Emiliana 09/27/22 at 2100, If oral and IV narcotics ordered, use oral first and only use IV if oral is ineffective or cannot take oral. Do Not give oral and IV within 1 hour of each other unless specifically ordered. 2100 (Given - Provider: Christy Tafoya RN) morphine injection 4 mg (COMPLETED) 4 mg, IntraVENous, ONCE, 1 dose, On Emiliana 09/27/22 at 2300, If oral and IV narcotics ordered, use oral first and only use IV if oral is ineffective or cannot take oral. Do Not give oral and IV within 1 hour of each other unless specifically ordered. 2255 (Given - Provider: Mouna Olmos, RN) ondansetron (ZOFRAN) injection 4 mg (COMPLETED) 4 mg, IntraVENous, ONCE, 1 dose, On Emiliana 09/27/22 at 2100 2101 (Given - Provider: Christy Tafoya, NU) Scheduled Medication Order 10/03/2022 10/04/2022 10/05/2022 hydrocodone-acetaminophen (NORCO) tablet 5-325 mg (STARTER PACK) This order is for a take home starter pack of medication. Please document Not Given with a reason of other on the MAR along with a comment of sent home with patient. 1950 (Given - Provid er: Migdalia Dennis RN - Comment: take home) oxyCODONE-acetaminophen (PERCOCET) 5-325 MG per tablet 1 tablet (COMPLETED) Mg/kg dosing is based on the oxycodone component., 1 tablet, Oral, ONCE, 1 dose, On 10/05/22 at 1815, Maximum dose of acetaminophen is 4000 mg from all sources in 24 hours. 180 (Given - Provid er: Migdalia Dennis RN) Scheduled Medication Order 10/30/2022 10/31/2022 11/01/2022 hydrocodone-acetaminophen (NORCO) tablet 5-325 mg (STARTER PACK) This order is for a take home starter pack of medication. Please document Not Given with a reason of other on the MAR along with a comment of sent home with patient. 174 (Not Given - Pr ovider: Katie Schofield RN - Reason: Other - Comment: Sent home with pt with instructions.) morphine (PF) injection 2 mg (COMPLETED) 2 mg, IntraVENous, ONCE, 1 dose, On Emiliana 11/01/22 at 1645, If oral and IV narcotics ordered, use oral first and only use IV if oral is ineffective or cannot take oral. Do Not give oral and IV within 1 hour of each other unless specifically ordered. 1648 (Given - Provid er: Katie Schofield RN) morphine injection 4 mg (COMPLETED) 4 mg, IntraVENous, ONCE, 1 dose, On Emiliana 11/01/22 at 1530, If oral and IV narcotics ordered, use oral first and only use IV if oral is ineffective or cannot take oral. Do Not give oral and IV within 1 hour of each other unless specifically ordered. 1553 (Given - Provid er: Katie Schofield RN) ondansetron (ZOFRAN) injection 4 mg (COMPLETED) 4 mg, IntraVENous, ONCE, 1 dose, On Emiliana 11/01/22 at 1530 1553 (Given - Provid er: Katie Schofield RN) Scheduled Medication Order 11/10/2022 11/11/2022 11/12/2022 acetaminophen (TYLENOL) tablet 650 mg (COMPLETED) 650 mg, Oral, ONCE, 1 dose, On Sat11/12/22 at 0845, Maximum dose of acetaminophen is 4000 mg from all sources in 24 hours., Pre-op (day of surgery) 0841 (Given - Provid er: Christy Ching RN) ceFAZolin (ANCEF) 2000 mg in 0.9% sodium chloride 100 mL IVPB (COMPLETED) 2,000 mg, IntraVENous, WELLHEAD PUMPER TO O.R., 1 dose, On Sat11/12/22 at 0845, Antimicrobial Indications: Surgical Prophylaxis, Administer within 1 hour prior to incision., Pre-op (day of surgery) 0942 (New Bag - Prov ider: Ana Ceron RN)1012 (Due: Stopped - Provider: Ana Ceron RN) dimenhyDRINATE (DRAMAMINE) tablet 50 mg (COMPLETED) 50 mg, Oral, ONCE, 1 dose, On Sat11/12/22 at 0845, Pre-op (day of surgery) 0841 (Given - Provid er: Christy Ching RN) enoxaparin (LOVENOX) injection 40 mg (COMPLETED) 40 mg, SubCUTAneous, ONCE, 1 dose, On Sat11/12/22 at 0845, Indication of Use: Prophylaxis-DVT/PE, Administer by deep subCUTAneous injection with pt lying down. Alternate injection sites on abdominal wall. Do not rub site after injection. Check with MD prior to any invasive procedure., Pre-op (day of surgery) 0842 (Given - Provid er: Christy Ching RN) sodium chloride flush 0.9 % injection 5-40 mL 5-40 mL, IntraVENous, EVERY 12 HOURS SCHEDULED (2 times per day), First dose on Sat11/12/22 at 0900, Until Discontinued, For Line Patency: Peripheral IV = 5 mL; Midline or Central Line = 10 mL/lumen. If following IV push medication, administer flush at same rate as the IV push. Flush volume is determined by type of infusion therapy being given. For non-viscous solutions use: Peripheral IV = 5 mL Midline or Central Line = 10 mL/lumen For viscous solutions (i.e. blood components, parenteral nutrition, contrast media, or after obtaining blood sample) use: Peripheral IV = 10 mL Midline or Central Line = 20 mL/lumen, Pre-op (day of surgery) 0900 (Due)2100 (Due) sodium chloride flush 0.9 % injection 5-40 mL 5-40 mL, IntraVENous, EVERY 12 HOURS SCHEDULED (2 times per day), First dose on Sat11/12/22 at 2100, Until Discontinued, For Line Patency: Peripheral IV = 5 mL; Midline or Central Line = 10 mL/lumen. If following IV push medication, administer flush at same rate as the IV push. Flush volume is determined by type of infusion therapy being given. For non-viscous solutions use: Peripheral IV = 5 mL Midline or Central Line = 10 mL/lumen For viscous solutions (i.e. blood components, parenteral nutrition, contrast media, or after obtaining blood sample) use: Peripheral IV = 10 mL Midline or Central Line = 20 mL/lumen, PACU only 2100 (Due) Continuous Medication Order 11/10/2022 11/11/2022 11/12/2022 lactated ringers IV soln infusion IntraVENous, at 100 mL/hr, CONTINUOUS, Starting on Sat11/12/22 at 0845, Pre-op (day of surgery) 0843 (New Bag - Prov ider: Christy Ching RN)1326 (Stopped - Provider: Aliyah Rangel RN) PRN Medication Order 11/10/2022 11/11/2022 11/12/2022 0.9 % sodium chloride infusion IntraVENous, at 5-250 mL/hr, PRN, if patient receiving piggyback infusions and maintenance fluids are not ordered OR KVO fluids to protect IV site / prevent frequent line interruptions/ long duration, Starting on Sat11/12/22 at 0817, For piggyback infusion, administer at same rate as piggyback for a total of 25 mL. Enter 25 mL into dose field and piggyback rate into rate field of order. If piggyback is infusing at a rate less than 100 mL/hr, enter 25 mL into dose field and 100 mL/hr into rate field of order. For KVO fluids, enter rate of 20 mL/hr or less into rate field of order., Pre-op (day of surgery) 0.9 % sodium chloride infusion IntraVENous, at 5-250 mL/hr, PRN, if patient receiving piggyback infusions and maintenance fluids are not ordered OR KVO fluids to protect IV site / prevent frequent line interruptions/ long duration, Starting on Sat11/12/22 at 1204, For piggyback infusion, administer at same rate as piggyback for a total of 25 mL. Enter 25 mL into dose field and piggyback rate into rate field of order. If piggyback is infusing at a rate less than 100 mL/hr, enter 25 mL into dose field and 100 mL/hr into rate field of order. For KVO fluids, enter rate of 20 mL/hr or less into rate field of order., PACU only fentaNYL (SUBLIMAZE) injection 25 mcg 25 mcg, IntraVENous, EVERY 5 MIN PRN, 2 doses, Starting on Sat11/12/22 at 1204, Until Discontinued, Pain Moderate (4-6), For Phase I. If Phase II oral narcotics have been administered in the last 60 minutes, do not administer IV narcotics unless specifically approved by provider., PACU only fentaNYL (SUBLIMAZE) injection 50 mcg (COMPLETED) 50 mcg, IntraVENous, EVERY 5 MIN PRN, 2 doses, Starting on Sat11/12/22 at 1204, Until Sat11/12/22 at 1219, Pain Severe (7-10), For Phase I. If Phase II oral narcotics have been administered in the last 60 minutes, do not administer IV narcotics unless specifically approved by provider., PACU only 1209 (Given - Provid er: Aliyah Rangel RN)1219 (Given - Provider: Aliyah Rangel RN) ondansetron (ZOFRAN) injection 4 mg (COMPLETED) 4 mg, IntraVENous, ONCE PRN, 1 dose, Starting on Sat11/12/22 at 1204, Until Sat11/12/22 at 1224, Nausea, Initial antiemetic therapy., PACU only 1224 (Given - Provid er: Aliyah Rangel RN) oxyCODONE (ROXICODONE) immediate release tablet 5 mg (COMPLETED) 5 mg, Oral, PRN, 1 dose, Starting on Sat11/12/22 at 1204, Until Sat11/12/22 at 1307, Pain Moderate (4-6), PHASE II, PACU only 1307 (Given - Provid er: Aliyah Rangel RN) sodium chloride flush 0.9 % injection 5-40 mL 5-40 mL, IntraVENous, PRN, Starting on Sat11/12/22 at 0817, Until Discontinued, Line Care, After every IV line use, For Line Patency: Peripheral IV = 5 mL; Midline or Central Line = 10 mL/lumen. If following IV push medication, administer flush at same rate as the IV push. Flush volume is determined by type of infusion therapy being given. For non-viscous solutions use: Peripheral IV = 5 mL Midline or Central Line = 10 mL/lumen For viscous solutions (i.e. blood components, parenteral nutrition, contrast media, or after obtaining blood sample) use: Peripheral IV = 10 mL Midline or Central Line = 20 mL/lumen, Pre-op (day of surgery) sodium chloride flush 0.9 % injection 5-40 mL 5-40 mL, IntraVENous, PRN, Starting on Sat11/12/22 at 1204, Until Discontinued, Line Care, After every IV line use, For Line Patency: Peripheral IV = 5 mL; Midline or Central Line = 10 mL/lumen. If following IV push medication, administer flush at same rate as the IV push. Flush volume is determined by type of infusion therapy being given. For non-viscous solutions use: Peripheral IV = 5 mL Midline or Central Line = 10 mL/lumen For viscous solutions (i.e. blood components, parenteral nutrition, contrast media, or after obtaining blood sample) use: Peripheral IV = 10 mL Midline or Central Line = 20 mL/lumen, PACU only Scheduled Medication Order 02/16/2023 02/17/202302/1802/18/2023 0.9 % sodium chloride bolus (COMPLETED) 2,000 mL, IntraVENous, at 991.7 mL/hr, Administer over 121 Minutes, ONCE, On Sat02/18/23 at 1915, For 1 dose 1915 (New Bag - Prov ider: Katarzyna Head RN)2203 (Stopped - Provider: Katarzyna Head RN) dicyclomine (BENTYL) injection 20 mg (COMPLETED) 20 mg, IntraMUSCular, ONCE, 1 dose, On Sat02/18/23 at 2045 205 (Given - Provid er: Katarzyna Head RN) ondansetron (ZOFRAN) injection 4 mg (COMPLETED) 4 mg, IntraVENous, ONCE, 1 dose, On Sat02/18/23 at 1915 191 (Given - Provid er: Katarzyna Head RN) PRN Medication Order 02/16/2023 02/17/2023 02/18/2023 iopamidol (ISOVUE-370) 76 % injection 75 mL (COMPLETED) 75 mL, IntraVENous, IMG ONCE PRN, 1 dose, Starting on Sat02/18/23 at 2104, Until Sat02/18/23 at 211, Other 2110 (Given - Provid er: Sarika Hernandez) Scheduled Medication Order 03/21/2023 03/22/2023 03/23/2023 0.9 % sodium chloride bolus (COMPLETED) 1,000 mL, IntraVENous, at 983.6 mL/hr, Administer over 61 Minutes, ONCE, On 03/23/23 at 1815, For 1 dose 1903 (New Bag - Prov ider: Mouna Shah RN)2004 (Stopped - Provider: Mouna Shah RN) promethazine (PHENERGAN) tablet 25 mg (COMPLETED) 25 mg, Oral, ONCE, 1 dose, On 03/23/23 at 1830 1904 (Given - Provid er: Mouna Shah RN) Scheduled Medication Order 11/22/2023 11/23/2023 11/24/2023 dicyclomine (BENTYL) injection 20 mg (COMPLETED) 20 mg, IntraMUSCular, ONCE, 1 dose, On 11/23/23 at 2338 2218 (Given - Provider: Navi Lockwood RN) HYDROcodone-acetaminophen (NORCO) 5-325 MG per tablet 1 tablet (COMPLETED) 1 tablet, Oral, ONCE, 1 dose, On 11/23/23 at 2144, Maximum dose of acetaminophen is 4000 mg from all sources in 24 hours. 2144 (Given - Provider: Navi Lockwood RN) hydrocodone-acetaminophen (NORCO) tablet 5-325 mg (STARTER PACK) This order is for a take home starter pack of medication. Please document Furnish to patient on the 7 (Furnished to Patient - Provider: Navi Lockwood RN - Comment: Pt given medication to administer at home. Pt instructed on use/administration. Pt verbalized understanding. Denied any questions or concerns.) PRN Medication Order 11/22/2023 11/23/2023 11/24/2023 iopamidol (ISOVUE-370) 76 % injection 75 mL (COMPLETED) 75 mL, IntraVENous, IMG ONCE PRN, 1 dose, Starting on 11/23/23 at 2143, Until Discontinued, Other 2237 (Given - Provider: Isidra Wilks) Scheduled Medication Order 01/02/2024 01/03/2024 01/04/2024 famotidine (PEPCID) 20 mg in sodium chloride (PF) 0.9 % 10 mL injection (COMPLETED) 20 mg, IntraVENous, ONCE, 1 dose, On 01/04/24 at 2044, IV Push over minimum of 2 minutes - Dilute with 10 mL NS 2047 (Given - Provid er: Mouna Pearson RN) metoclopramide (REGLAN) injection 10 mg (COMPLETED) 10 mg, IntraVENous, ONCE, 1 dose, On 01/04/24 at 2044, IV Push: Max 10 mg over 1-2 minutes. 2049 (Given - Provid er: Mouna Pearson RN) ondansetron (ZOFRAN) injection 4 mg (COMPLETED) 4 mg, IntraVENous, ONCE, 1 dose, On 01/04/24 at 2044 2046 (Given - Provid er: Mouna Pearson RN) sodium chloride 0.9 % bolus 1,000 mL (COMPLETED) 1,000 mL, IntraVENous, at 1,935.5 mL/hr, Administer over 31 Minutes, ONCE, On 01/04/24 at 2044, For 1 dose 2045 (New Bag - Prov ider: Mouna Pearson, NU)2199 (Stopped - Provider: Navi Lockwood RN) PRN Medication Order 01/28/2024 01/29/2024 01/30/2024 iopamidol (ISOVUE-370) 76 % injection 75 mL (COMPLETED) 75 mL, IntraVENous, IMG ONCE PRN, 1 dose, Starting on Emiliana 01/30/24 at 1836, Until Sat01/30/24 at 1841, Other 184 (Given - Provid er: Kayla Polanco) Scheduled Medication Order 02/03/2024 02/04/2024 02/05/2024 diphenoxylate-atropine (LOMOTIL) 2.5-0.025 MG per tablet 1 tablet (COMPLETED) 1 tablet, Oral, ONCE, 1 dose, On Sat02/05/24 at 2030 2025 (Given - Provid er: Katarzyna Tobin RN) metoclopramide (REGLAN) injection 10 mg (COMPLETED) 10 mg, IntraMUSCular, ONCE, 1 dose, On Sat02/05/24 at 2029, IV Push: Max 10 mg over 1-2 minutes. 2025 (Given - Provid er: Katarzyna Tobin RN) ondansetron (ZOFRAN-ODT) disintegrating tablet 4 mg (COMPLETED) 4 mg, Oral, ONCE, 1 dose, On Sat02/05/24 at 2100 2052 (Given - Provid er: Kaylie Mercedes RN) PRN Medication Order 02/03/2024 02/04/2024 02/05/2024 hyoscyamine (LEVSIN/SL) sublingual tablet 125 mcg 125 mcg, SubLINGual, EVERY 4 HOURS PRN, Starting on Sat02/05/24 at 2048, Until Discontinued, Cramping 2052 (Given - Provid er: Kaylie Mercedes RN) Care Teams (unrecognized sec tion and content) Stage Director Relationship Specialty Start Date End Date Yossi Wells MD [address] [place] [address] PCP - General Family Medicine 09/28/18 Stage Director Relationship Specialty Start Date End Date Yossi Wells MD [address] [place] [address] PCP - General Family Medicine 09/28/18 Stage Director Relationship Specialty Start Date End Date Yossi Wells MD [address] [place] [address] PCP - General Family Medicine 09/28/18 Stage Director Relationship Specialty Start Date End Date Yossi Wells MD [address] [place] [address] PCP - General Family Medicine 09/28/18 Stage Director Relationship Specialty Start Date End Date Yossi Wells MD [address] [place] [address] PCP - General Family Medicine 09/28/18 Stage Director Relationship Specialty Start Date End Date Yossi Wells MD [address] [place] [address] PCP - General Family Medicine 09/28/18 Stage Director Relationship Specialty Start Date End Date Yossi Wells MD [address] [place] [address] PCP - General Family Medicine 09/28/18 Stage Director Relationship Specialty Start Date End Date Yossi Wells MD [address] [place] [address] PCP - General Family Medicine 09/28/18 Stage Director Relationship Specialty Start Date End Date Yossi Wells MD [address] [place] [address] PCP - General Family Medicine 09/28/18 Stage Director Relationship Specialty Start Date End Date Yossi Wells MD [address] [place] [address] PCP - General Family Medicine 09/28/18 Stage Director Relationship Specialty Start Date End Date Yossi Wells MD [address] [place] [address] PCP - General Family Medicine 09/28/18 Stage Director Relationship Specialty Start Date End Date Yossi Wells MD [address] [place] [address] PCP - [facility] Medicine 09/28/18 Stage Director Relationship Specialty Start Date End Date Yossi Wells MD [address] [place] [address] PCP [facility] 09/28/18 Stage Director Relationship Specialty Start Date End Date Yossi Wells MD [address] [place] [address] PCP - [facility] Medicine 09/28/18 Stage Director Relationship Specialty Start Date End Date Yossi Wells MD [address] [place] [address] PCP General Family Medicine 09/28/18 Stage Director Relationship Specialty Start Date End Date Yossi Wells MD [address] [place] [address] [facility] 09/28/18 FOR RECORDS PERTAINING TO PATIENTS WHO ARE OR HAVE BEEN ENROLLED IN A CHEMICAL DEPENDENCY/SUBSTANCEABUSE PROGRAM, SOME INFORMATION MAY BE OMITTED. This clinical summary was aggregated from multiple sources. Caution should be exercised in using it in the provision of clinical care. This summary normalizes information from multiple sources, and as a consequence, information in this document may materially change the coding, format and clinical context of patient data. In addition, data may be omitted in some cases. CLINICAL DECISIONS SHOULD BE BASED ON THE PRIMARY CLINICAL RECORDS. [facility] [employer] [facility]. provides no warranty or guarantee of the accuracy or completeness of information in this document.
--- NOTE | 2024-04-14 21:59 | ECG_ITS ---
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
[2024-04-14 22:05] LABS: Glucometer 212 mg/dL (74-106)
--- NOTE | 2024-04-14 22:06 | ED.GENADUL1 ---
HPI HPI - General Adult General Chief complaint: Nausea/Vomiting/Diarrhea Stated complaint: HYPERGLYCEMIA Time Seen by Provider: 04/14/24 21:52 Source: patient Mode of arrival: walk-in History of Present Illness HPI narrative: 28-year-old female presents to the emergency for not feeling well. She has felt this way all day. She is a diabetic and started insulin 2 days ago. She had not previously been on insulin. Her blood sugars used to run in the 300s and now they have been in the 200s today, not lower. No fever but she was nauseous and she vomited and she felt like she is in a dream. She does not complain of any headache or any other pain. Related Data Home Medications ?Medication ?Instructions ?Recorded ?Confirmed albuterol 90 mcg/actuation aerosol 90 mcg inhalation QDAY PRN dyspnea 03/25/23 02/10/24 inhaler dulaglutide 3 mg/0.5 mL 3 mg subcut QWEEK 03/25/23 02/10/24 subcutaneous pen injector (Trulicity) glipizide 10 mg tablet 20 mg PO BID 03/25/23 02/10/24 hydroxyzine HCl 25 mg tablet 25 mg PO TID PRN itching 03/25/23 02/10/24 omeprazole 40 mg capsule,delayed 40 mg PO BID 03/25/23 02/10/24 release sertraline 50 mg tablet (Zoloft) 50 mg PO DAILY 03/25/23 02/10/24 tizanidine 4 mg capsule (Zanaflex) 4 mg PO TID PRN muscle spasticity 03/25/23 02/10/24 hyoscyamine sulfate 0.375 mg 0.375 mg PO .q12hr PRN cramping 01/20/24 02/10/24 tablet,extended release,12 hr ondansetron HCl 4 mg tablet 4 mg PO Q8H PRN nausea and vomiting 01/20/24 02/10/24 Previous Rx's ?Medication ?Instructions ?Recorded ciprofloxacin HCl 500 mg tablet 500 mg PO BID #14 tabs 01/15/24 (Cipro) ondansetron 4 mg disintegrating 4 mg PO Q6H PRN nausea and 04/05/24 tablet vomiting #12 tabs ondansetron 4 mg disintegrating 4 mg PO Q6H PRN nausea and 04/14/24 tablet vomiting #20 tabs Allergies Allergy/AdvReac Type Severity Reaction Status Date / Time amoxicillin Allergy Nausea Verified 02/10/24 19:28 egg Allergy Abdominal Verified 02/10/24 19:28 Pain ketorolac Allergy dyspnea Verified 02/10/24 19:28 latex Allergy itching Verified 02/10/24 19:28 meperidine [From Demerol] Allergy shortness Verified 02/10/24 19:28 of breath Penicillins Allergy Rash Verified 02/10/24 19:28 Opioid HPI Opioid Management Most Recent Opioid Data: Last Pain Scale 4 04/22/23 09:37 Review of Systems ROS Narrative A ten point review of systems is negative except as noted above. 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 - Acquired stenosis of unspecified nasolacrimal duct (ICD-10) H/O thrombosis ?Z86.718 - Personal history of other venous thrombosis and embolism (ICD-10) Low back pain ?M54.50 - Low back pain, unspecified (ICD-10) Heartburn ?R12 - Heartburn (ICD-10) Anxiety ?F41.9 - Anxiety disorder, unspecified (ICD-10) Acid reflux ?K21.9 - Gastro-esophageal reflux disease without esophagitis (ICD-10) Diabetes ?E11.9 - Type 2 diabetes mellitus without complications (ICD-10) Smoker ?F17.200 - Nicotine dependence, unspecified, uncomplicated (ICD-10) Surgical History Social History Smoking status: Current every day smoker Exam Narrative Exam Narrative: Nurses note and vital signs reviewed and patient is not hypoxic. General: The patient appears well and in no apparent distress. Patient is resting comfortably on cart. Skin: Warm, dry, no pallor noted. There is no rash noted. Head: Normocephalic, atraumatic Eye: Normal conjunctiva, no drainage Ears, Nose, Mouth, and Throat: oral mucosa is moist. Nares patent. Cardiovascular: Regular Rate and Rhythm Respiratory: Patient is in no distress, no accessory muscle use, lungs are clear to auscultation, no wheezing, rales or rhonchi Back: non-tender GI: Soft and nontender Musculoskeletal: The patient has no evidence of calf tenderness, no pitting edema, symmetrical pulses noted bilaterally Neurological: A&O x4, normal speech Psychiatric: Cooperative Constitutional Vital Signs, click to edit/add: Last Vital Signs Temp 98.4 F 04/14/24 21:52 Pulse 107 H 04/14/24 21:52 Resp 16 04/14/24 21:52 BP 114/85 04/14/24 21:52 Pulse Ox 97 04/14/24 21:52 O2 Del Method Room Air 04/14/24 21:52 O2 Flow Rate 8 04/14/24 21:52 Course Vital Signs Vital signs: Vital Signs Temperature 98.4 F 04/14/24 21:52 Pulse Rate 107 H 04/14/24 21:52 Respiratory Rate 16 04/14/24 21:52 Blood Pressure 114/85 04/14/24 21:52 Pulse Oximetry 97 04/14/24 21:52 Oxygen Delivery Method Room Air 04/14/24 21:52 Oxygen Delivery Flow Rate 8 04/14/24 21:52 Temperature 98.4 F 04/14/24 21:52 Pulse Rate 107 H 04/14/24 21:52 Respiratory Rate 16 04/14/24 21:52 Blood Pressure 114/85 04/14/24 21:52 Pulse Oximetry 97 04/14/24 21:52 Oxygen Delivery Method Room Air 04/14/24 21:52 Oxygen Delivery Flow Rate 8 04/14/24 21:52 Medical Decision Making MDM Narrative Medical decision making narrative: Her workup is essentially negative. Her blood sugar is appropriate. She was given IV fluids and Zofran and is able to be discharged home. Apparently for years her blood sugar has been running in the high 300s and now that it is 150-200 she seems to be having the symptoms and this was discussed thoroughly with the patient and her . She will follow-up with her PCP. Lab Data Lab results reviewed: Yes I reviewed the patient's lab results Labs: Lab Results 04/14/24 04/14/24 04/14/24 Range/Units 21:58 22:00 22:05 WBC 12.4 H (4.0-11.0) 10^3/uL RBC 5.15 (4.20-5.40) 10^6/uL Hgb 15.6 (12.0-16.0) g/dL Hct 47.2 (36.0-48.0) % MCV 91.7 (81.0-99.0) fL MCH 30.3 (26.7-34.0) pg MCHC 33.1 (29.9-35.2) g/dL RDW 12.5 (11.0-15.0) % Plt Count 342 (150-450) 10^3/uL MPV 10.9 (9.5-13.5) fL Neut % (Auto) 57.4 (43.0-75.0) % Lymph % (Auto) 35.2 (20.5-60.0) % [place] % (Auto) 5.6 (1.7-12.0) % Eos % (Auto) 1.2 (0.9-7.0) % Baso % (Auto) 0.4 (0.2-2.0) % Neut # (Auto) 7.1 H (1.4-6.5) 10^3/uL Lymph # (Auto) 4.4 H (1.2-3.8) 10^3/uL [place] # (Auto) 0.7 (0.3-0.8) 10^3/uL Eos # (Auto) 0.2 (0.0-0.7) 10^3/uL Baso # (Auto) 0.1 (0.0-0.1) 10^3/uL Abs Immat Gran (auto) 0.03 (0.00-0.03) 10^3/uL Imm/Tot Granulo (auto) 0.2 (0.0-0.5) % Sodium 135 L (136-145) mmol/L Potassium 4.2 (3.5-5.1) mmol/L Chloride 101 (98-107) mmol/L Carbon Dioxide 26.0 (21.0-32.0) mmol/L Anion Gap 12.2 BUN 14.0 (7.0-18.0) mg/dL Creatinine 0.93 (0.55-1.02) mg/dL Est GFR ( Amer) >60 (>=60) Est GFR (Non-Af Amer) >60 (>=60) BUN/Creatinine Ratio 15.1 Glucose 205 H (74-106) mg/dL Calcium 9.3 (8.5-10.1) mg/dL Urine Color Yellow (YELLOW) Urine Clarity Clear (CLEAR) Urine pH 6.0 (5.0-9.0) Ur Specific [place] >=1.030 A (1.005-1.025) Urine Protein Trace (NEG/TRACE) mg/dL Urine Glucose (UA) Negative (NEGATIVE) mg/dL Urine Ketones Trace A (NEGATIVE) mg/dL Urine Occult Blood Negative (NEGATIVE) Urine Nitrite Negative (NEGATIVE) Urine Bilirubin Negative (NEGATIVE) Urine Urobilinogen 1.0 (0.2-1.0) EU/dL Ur Leukocyte Esterase Negative (NEGATIVE) Urine RBC 0-2 (0-2) #/HPF Urine WBC 0-2 A (NONE SEEN) #/HPF Ur Squamous Epith Cells Few A (NONE/RARE) #/LPF Urine Crystals None seen (None Seen) #/HPF Urine Bacteria None seen (NONE SEEN) #/HPF Urine Casts None seen (NONE SEEN) #/LPF Urine Mucus None seen (NONE SEEN) Ur Culture Indicated? No POC Glucose 212 H (74-106) mg/dL ECG Data Attestation: I personally reviewed and interpreted this ECG as follows: (EKG on my interpretation shows normal sinus rhythm with no acute change and rate of 97.) Discharge Plan Discharge Stand Alone Forms: Portal Instructions Chief Complaint: Nausea/Vomiting/Diarrhea Clinical Impression: Nausea and vomiting Patient Disposition: Home, Self-Care Time of Disposition Decision: 23:38 Condition: Good Mode of Transportation: Private Vehicle Prescriptions / Home Meds: New ondansetron 4 mg tablet,disintegrating 4 mg PO Q6H PRN (Reason: nausea and vomiting) Qty: 20 0RF No Action ciprofloxacin HCl [Cipro] 500 mg tablet 500 mg PO BID Qty: 14 0RF omeprazole 40 mg capsule,delayed release(DR/EC) 40 mg PO BID Trulicity 3 mg/0.5 mL pen injector 3 mg subcut QWEEK hydroxyzine HCl 25 mg tablet 25 mg PO TID PRN (Reason: itching) glipizide 10 mg tablet 20 mg PO BID tizanidine [Zanaflex] 4 mg capsule 4 mg PO TID PRN (Reason: muscle spasticity) sertraline [Zoloft] 50 mg tablet 50 mg PO DAILY albuterol 90 mcg/actuation aerosol 90 mcg inhalation QDAY PRN (Reason: dyspnea) ondansetron HCl 4 mg tablet 4 mg PO Q8H PRN (Reason: nausea and vomiting) hyoscyamine sulfate 0.375 mg tablet extended release 12 hr 0.375 mg PO .q12hr PRN (Reason: cramping) ondansetron 4 mg tablet,disintegrating 4 mg PO Q6H PRN (Reason: nausea and vomiting) Qty: 12 0RF Print Language: Ethiopian Instructions: Acute Nausea and Vomiting (ED) Referrals: Yossi Golden MD [Primary Care Provider] - 1 week
[2024-04-14 22:13] LABS: Basophils Absolute Auto 0.1 10^3/uL (0.0-0.1); Basophils Percent Auto 0.4 % (0.2-2.0); Eosinophils Absolute Auto 0.2 10^3/uL (0.0-0.7); Eosinophils Percent Auto 1.2 % (0.9-7.0); Hematocrit 47.2 % (36.0-48.0); Hemoglobin 15.6 g/dL (12.0-16.0); Immature Granulocytes Abs Auto 0.03 10^3/uL (0.00-0.03); Immature Granulocytes Pct Auto 0.2 % (0.0-0.5); Lymphocytes Absolute Auto 4.4 10^3/uL (1.2-3.8); Lymphocytes Percent Auto 35.2 % (20.5-60.0); Mean Corpuscular HGB Conc 33.1 g/dL (29.9-35.2); Mean Corpuscular Hemoglobin 30.3 pg (26.7-34.0); Mean Corpuscular Volume 91.7 fL (81.0-99.0); Mean Platelet Volume 10.9 fL (9.5-13.5); Monocytes Absolute Auto 0.7 10^3/uL (0.3-0.8); Monocytes Percent Auto 5.6 % (1.7-12.0); Neutrophils Absolute Auto 7.1 10^3/uL (1.4-6.5); Neutrophils Percent Auto 57.4 % (43.0-75.0); Platelet Count 342 10^3/uL (150-450); Red Blood Count 5.15 10^6/uL (4.20-5.40); Red Cell Distribution Width 12.5 % (11.0-15.0); White Blood Count 12.4 10^3/uL (4.0-11.0)
[2024-04-14 22:14] LABS: Bilirubin Urine NEGATIVE (NEGATIVE); Blood Urine NEGATIVE (NEGATIVE); Clarity Urine CLEAR (CLEAR); Color Urine YELLOW (YELLOW); Glucose Urine UA NEGATIVE (NEGATIVE); Ketones Urine TRACE mg/dL (NEGATIVE); Leukocyte Esterase Urine NEGATIVE (NEGATIVE); Nitrite Urine NEGATIVE (NEGATIVE); Protein Urine TRACE mg/dL (NEG/TRACE); Specific Gravity Urine >=1.030 (1.005-1.025)
[2024-04-14 22:20] LABS: Bacteria Urine NONE SEEN #/HPF (NONE SEEN); Mucus Urine NONE SEEN (NONE SEEN); RBC Urine 0-2 #/HPF (0-2); Squamous Epithelial Cell Urine FEW #/LPF (NONE/RARE); WBC Urine 0-2 #/HPF (NONE SEEN)
[2024-04-14 22:21] LABS: Cast Seen? NONE SEEN #/LPF (NONE SEEN); Crystals Seen? None Seen #/HPF (None Seen); Urine Culture Indicated NO
[2024-04-14] MEDS: 0.9 % SODIUM CHLORIDE 1,000 ML 1000 ML IV (22:21)
[2024-04-14 22:22] LABS: Anion Gap 12.2; BUN Creatinine Ratio 15.1; Calcium 9.3 mg/dL (8.5-10.1); Chloride 101 mmol/L (98-107); Estimated GFR (African America >60 (>=60); Estimated GFR (Non-African Ame >60 (>=60); Glucose 205 mg/dL (74-106); Potassium 4.2 mmol/L (3.5-5.1); Sodium 135 mmol/L (136-145)
[2024-04-14] MEDS: ONDANSETRON PF 4 MG/2 ML VIAL IV ×2 (22:22→23:33)
[2024-04-14 22:26] VITALS: PULSE 97
== END 2024-04-14 23:54 | disposition home or self-care (01) ==
PROVIDERS: Emergency Provider Emergency Medicine; PCP Family Medicine
DX: R11.2 Nausea with vomiting, unspecified (principal); E11.9 Type 2 diabetes mellitus without complications; Z79.4 Long term (current) use of insulin; Z79.85 Long-term (current) use of injectable non-insulin antidiabetic drugs; F17.200 Nicotine dependence, unspecified, uncomplicated
CPT/HCPCS: 36415; 80048; 81001; 85025; 93005; 96361; 96374; 96376; 99285; J2405

== ENCOUNTER 2025-05-25 19:24 | Emergency (ER) | payer OTHER, SELFPAY ==
[2025-05-25 19:36] VITALS: BP 148/88; PULSE 98; TEMP 36.2; O2SAT 98; BMI 38.0
--- NOTE | 2025-05-25 19:51 | ED.SKABFB1 ---
HPI - Skin/Abscess/Foreign Bdy General Chief complaint: Skin/Abscess/Foreign Body Stated complaint: BOIL UNDER BUTTOCK Time Seen by Provider: 05/25/25 19:41 Source: patient Mode of arrival: walk-in History of Present Illness HPI narrative: 29 year old female presents to the ED for an erythematous, raised, painful area to her right inferior buttock. Onset was 2-3 days ago. Denies fever, chills, injury, drainage. Denies chance of . Reports hx abscesses. Related Data Home Medications ?Medication ?Instructions ?Recorded ?Confirmed albuterol 90 mcg/actuation aerosol 90 mcg inhalation QDAY PRN dyspnea 03/25/23 05/25/25 inhaler glipizide 10 mg tablet 20 mg PO BID 03/25/23 05/25/25 hydroxyzine HCl 25 mg tablet 25 mg PO TID PRN itching 03/25/23 05/25/25 sertraline 50 mg tablet (Zoloft) 50 mg PO DAILY 03/25/23 05/25/25 tizanidine 4 mg capsule (Zanaflex) 4 mg PO TID PRN muscle spasticity 03/25/23 05/25/25 hyoscyamine sulfate 0.375 mg 0.375 mg PO .q12hr PRN cramping 01/20/24 02/10/24 tablet,extended release,12 hr ondansetron HCl 4 mg tablet 4 mg PO Q8H PRN nausea and vomiting 01/20/24 02/10/24 Previous Rx's ?Medication ?Instructions ?Recorded ondansetron 4 mg disintegrating 4 mg PO Q6H PRN nausea and 04/05/24 tablet vomiting #12 tabs ondansetron 4 mg disintegrating 4 mg PO Q6H PRN nausea and 04/14/24 tablet vomiting #20 tabs cephalexin 500 mg capsule 500 mg PO Q6H 10 days #40 caps 05/25/25 doxycycline monohydrate 100 mg 100 mg PO BID 10 days #20 caps 05/25/25 capsule Allergies Allergy/AdvReac Type Severity Reaction Status Date / Time amoxicillin Allergy Nausea Verified 05/25/25 19:40 egg Allergy Abdominal Verified 05/25/25 19:40 Pain ketorolac Allergy dyspnea Verified 05/25/25 19:40 latex Allergy itching Verified 05/25/25 19:40 meperidine (From Demerol) Allergy shortness Verified 05/25/25 19:40 of breath Penicillins Allergy Rash Verified 05/25/25 19:40 Review of Systems ROS Constitutional Denies: fever or chills Cardiovascular Denies: chest pain Respiratory Denies: shortness of breath Integumentary/Breast Reports: redness, skin pain and skin tenderness 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 - Acquired stenosis of unspecified nasolacrimal duct (ICD-10) H/O thrombosis ?Z86.718 - Personal history of other venous thrombosis and embolism (ICD-10) Low back pain ?M54.50 - Low back pain, unspecified (ICD-10) Heartburn ?R12 - Heartburn (ICD-10) Anxiety ?F41.9 - Anxiety disorder, unspecified (ICD-10) Acid reflux ?K21.9 - Gastro-esophageal reflux disease without esophagitis (ICD-10) Diabetes ?E11.9 - Type 2 diabetes mellitus without complications (ICD-10) Smoker ?F17.200 - Nicotine dependence, unspecified, uncomplicated (ICD-10) Surgical History Social History Smoking status: Current every day smoker Little interest or pleasure in doing things: not at all Feeling down, depressed, or hopeless: not at all Exam Constitutional Vital Signs, click to edit/add: Last Vital Signs Temp 97.2 F L 05/25/25 19:36 Pulse 98 H 05/25/25 19:36 Resp 16 05/25/25 19:36 BP 148/88 H 05/25/25 19:36 Pulse Ox 98 05/25/25 19:36 O2 Del Method Room Air 05/25/25 19:36 Common normals: no apparent distress and oriented x3 General appearance: cooperative Other: Erythematous, tender, firm area to right inferior buttock. Center of area is raised. Area is approx 2 cm in diameter. I and D indicated. No drainage at this time. Eye Common normals: conjunctivae normal and no scleral icterus Neck & C-Spine Common normals: supple Respiratory Common normals: normal respiratory effort Effort & inspection: able to speak in complete sentences and symmetric chest movement Cardio Common normals: regular rate Neuro Common normals: oriented x3 and moves all extremities Sensorium/orientation: awake and alert Speech: speech normal Course Vital Signs Vital signs: Vital Signs Temperature 97.2 F L 05/25/25 19:36 Pulse Rate 98 H 05/25/25 19:36 Respiratory Rate 16 05/25/25 19:36 Blood Pressure 148/88 H 05/25/25 19:36 Pulse Oximetry 98 05/25/25 19:36 Oxygen Delivery Method Room Air 05/25/25 19:36 Temperature 97.2 F L 05/25/25 19:36 Pulse Rate 98 H 05/25/25 19:36 Respiratory Rate 16 05/25/25 19:36 Blood Pressure 148/88 H 05/25/25 19:36 Pulse Oximetry 98 05/25/25 19:36 Oxygen Delivery Method Room Air 05/25/25 19:36 MDM - Skin/Abscess/Foreign Bdy MDM Narrative Medical decision making narrative: I and D was completed. A moderate amount of purulent drainage was expressed. She tolerated the procedure well. A dressing was applied. Prescriptions were provided for doxycycline and Keflex. Warm, moist compresses were discussed. Follow up with pcp for a recheck, further evaluation and treatment. Differential Diagnosis Differential diagnosis: Likely abscess of skin or subcutaneous tissue Discharge Plan Discharge Chief Complaint: Skin/Abscess/Foreign Body Clinical Impression: Abscess of skin or subcutaneous tissue Patient Disposition: Home, Self-Care Time of Disposition Decision: 20:09 Condition: Good Mode of Transportation: Private Vehicle Prescriptions / Home Meds: New doxycycline monohydrate 100 mg capsule 100 mg PO BID 10 Days Qty: 20 0RF cephalexin 500 mg capsule 500 mg PO Q6H 10 Days Qty: 40 0RF No Action hydroxyzine HCl 25 mg tablet 25 mg PO TID PRN (Reason: itching) glipizide 10 mg tablet 20 mg PO BID tizanidine [Zanaflex] 4 mg capsule 4 mg PO TID PRN (Reason: muscle spasticity) sertraline [Zoloft] 50 mg tablet 50 mg PO DAILY albuterol 90 mcg/actuation aerosol 90 mcg inhalation QDAY PRN (Reason: dyspnea) ondansetron HCl 4 mg tablet 4 mg PO Q8H PRN (Reason: nausea and vomiting) hyoscyamine sulfate 0.375 mg tablet extended release 12 hr 0.375 mg PO .q12hr PRN (Reason: cramping) ondansetron 4 mg tablet,disintegrating 4 mg PO Q6H PRN (Reason: nausea and vomiting) Qty: 12 0RF ondansetron 4 mg tablet,disintegrating 4 mg PO Q6H PRN (Reason: nausea and vomiting) Qty: 20 0RF Print Language: Togolese Instructions: Abscess (ED), Abscess Incision and Drainage (DC) Additional Instructions: Return to the ED if your condition worsens. Referrals: Yossi Golden MD [Primary Care Provider, Family Practice] - 1 week Procedures ED ID Incision & Drainage I&D Type: abcess Site: other (Buttock) Side (if applicable): right Anesthetic used: lidocaine 1% Technique: incised with #11 blade Packing used: none
--- OUTSIDE RECORDS SUMMARY | 2025-05-25 19:57 | XMS_ITS | Encounter Summary ---
Author Organization [facility] Address [address] [place] [address] Care Team Providers Care Systems Applications Programming Lead Name Role Phone Yossi Golden MD Primary Care Provider Yossi Golden MD Unavailable Encounter Details Date Type Department Care Team (Late st Contact Info) Description 08/10/2024 Orders Only [facility] [address] [place] [address] Damian Locke MD Social History Tobacco Use Types Packs/Day Years Used Date Smoking Tobacco: Every Day Cigarettes Smokeless Tobacco: Never [id number] Health Literacy Answer Date Recor ded How often do you need to hav e someone help you when you read instructions, pamphlets, or other written material from your doctor or pharmacy? Never 04/28/2024 Social Connection and Isolat ion Panel [NHANES] Answer Date Recorded In a typical week, how many times do you talk on the phone with family, friends, or neighbors? More than three times a week 04/28/2024 How often do you get togethe r with friends or relatives? Once a week 04/28/2024 How often do you attend chur ch or synagogue services? Patient declined 04/28/2024 Do you belong to any clubs o r organizations such as oriental orthodox groups, unions, fraternal or athletic groups, or school groups? No 04/28/2024 How often do you attend meet ings of the clubs or organizations you belong to? Patient declined 04/28/2024 Are you , , di vorced, , never , or living with a partner? 04/28/2024 AUDIT-C Answer Date Recorded Q1: How often do you have a drink containing alc ohol? Monthly or less 04/28/2024 Q2: How many drinks containi ng alcohol do you have on a typical day when you are drinking? 1 or 2 04/28/2024 Q3: How often do you have si x or more drinks on one occasion? Never 04/28/2024 Overall Financial Resource Strain (CARDIA) Answe r Date Recorded How hard is it for you to pa y for the very basics like food, housing, medical care, and heating? Somewhat hard 04/28/2024 [facility] - Occupational Stress Questionnaire Answer Date Recorded Do you feel stress - tense, restless, nervous, or anxious, or unable to sleep at night because your mind is troubled all the time - these days? Rather much 04/28/2024 Exercise Vital Sign Answer Date Recorde d On average, how many days pe r week do you engage in moderate to strenuous exercise (like a brisk walk)? Patient declined On average, how many minutes do you engage in exercise at this level? Patient declined 04/28/2024 Hunger Vital Sign Answer Date Recorded Within the past 12 months, y ou worried that your food would run out before you got the money to buy more. Patient declined Within the past 12 months, t he food you bought just didn't last and you didn't have money to get more. Patient declined 02/2024 PRAPARE - Transportation Answer Date Re corded In the past 12 months, has l ack of transportation kept you from medical appointments or from getting medications? Patient declined 04/28/2024 In the past 12 months, has l ack of transportation kept you from meetings, work, or from getting things needed for daily living? No 04/28/2024 Housing Stability Vital Sign Answer Marcelino e Recorded In the last 12 months, was t here a time when you were not able to pay the mortgage or rent on time? Yes 04/28/2024 In the past 12 months, how m any times have you moved where you were living? 0 04/28/2024 At any time in the past 12 m [facility], were you homeless or living in a intermediate (including now)? No 04/28/2024 Comments Unknown Sex and Gender Information Value Date Recorded Sex Assigned at Female 01/15/2024 2:04 PM EDT Legal Sex Female 7:09 PM EDT Gender Identity Female 01/15/2024 2:04 PM EDT Sexual Orientation Not on file documented as of this encounter Plan of Treatment Not on file documented as of this encounter Goals Goal Patient Goal Type Associated Problems Recent Progress Patient-Stated? Author Help patient manage antidepressant medication Care Plan Patient on antidepressant monitoring plan No Caryl Douglass MA Baseline PHQ-9 Care Plan Baseline PHQ-9 No Caryl Douglass MA documented as of this encounter Procedures Procedure Name Priority Date/Time Associated Diagnosis Comments MISCELLANEOUS LAB TEST Routine 08/07/2024 2:24 PM EST XR ABDOMEN 1 VIEW Routine 08/06/2024 2:50 PM EST documented in this encounter Results * - Miscellaneous Test (08/07/2024 2:24 PM EST) [facility] BLOOD ORDERABLES Final Result * XR abdomen 1 view (08/06/2024 2:50 PM EST) Anatomical Region Laterality Modality Abdomen Radiographic Christina ging us Dem[facility] Provider [facility] XR PROCEDURES Final Re sult documented in this encounter Visit Diagnoses Not on filedocumented in this encounter Additional Health Concerns Active Problems Noted Date Diagnosed Date Patient on antidepressant monitoring plan 2023 Baseline PHQ-9 01/20/2024 documented as of this encounter Care Teams Systems Applications Programming Lead Relationship Specialty Start Date End Date Yossi Golden MD PCP - General Family Medicine 03/20/23 Yossi Golden MD [address] [place] [address] PCP - [facility] 09/23/24 documented as of this encounter
--- OUTSIDE RECORDS SUMMARY | 2025-05-25 19:57 | XMS_ITS | Encounter Summary ---
Author Organization [facility] Address [address], [address] [place] [address] Care Team Providers Care Rails Developer Name Role Phone Yossi Golden MD Primary Care Provider + Encounter Details Date Type Department Care Team (Late st Contact Info) Description 06/13/2020 FollowUp Telephone Encounter [facility] [address] [place], [place] [id number] Debby Stanley, IBCLC OB Unit at [place] [id number] Social History Tobacco Use Types Packs/Day Years Used Date Smoking Tobacco: Every Day Cigarettes 0.3 15 Smokeless Tobacco: Never Comments: 4-5cigs/day 2019 Alcohol Use Standard Drinks/Week Comments No 0 (1 standard drink = 0.6 oz pur e alcohol) socially Comments No Sex and Gender Information Value Date Recorded Sex Assigned at Female 03/16/2021 1:40 PM EDT Legal Sex Female 10:18 AM EST Gender Identity Female 03/16/2021 1:40 PM EDT Sexual Orientation Straight 03/16/2021 1: 40 PM EDT COVID-19 Exposure Response Date Recorded In the last month, have you been in contact with someone who was confirmed or suspected to have Coronavirus / COVID-19? No / Unsure 06/13/2020 11:50 PM EDT documented as of this encounter Progress Notes * Debby Stanley IBCLC - 06/13/2020 1:48 PM EDT Discharge Phone Call Log Patient Name: Dorota Swanson OB Care Provider: No admitting provider for patient encounter. Most Recent Discharge Date: 05/24/20 Disposition of baby: (home) Call made 06/13/2020 1:48 PM [] First call, message left, will try again. [x] Call made, message left, postcard sent. [] Call made, no answer or voicemail, postcard sent. documented in this encounter Plan of Treatment Upcoming Encounters Date Type Department Care Team (Late st Contact Info) Description 06/25/2025 8:30 AM EDT Appointment [facility] Nuclear Medicine [address] [place] [address] media/ resched w pt/ allergic to eggs 06/25/2025 10:30 AM EDT Appointment [facility] Nuclear Medicine [address] [place] [address] media/ resched w pt/ allergic to eggs 06/25/2025 12:30 PM EDT Appointment [facility] Nuclear Medicine [address] [place], [place] [id number] media/ resched w pt/ allergic to eggs documented as of this encounter Visit Diagnoses Not on filedocumented in this encounter Additional Health Concerns Infection Onset Date Last Indicated Resolved Time COVID-19 (Rule Out) 03/16/2021 03/16/2021 03/17/20 21 12:01 PM EDT COVID-19 (Rule Out) 05/22/2021 05/22/2021 05/23/20 21 11:30 AM EDT COVID-19 (Rule Out) 09/06/2021 09/06/2021 09/06/20 21 4:09 PM EST COVID-19 (Rule Out) 03/11/2022 03/11/2022 03/11/20 22 1:41 AM EDT COVID-19 (Rule Out) 06/21/2023 06/21/2023 06/21/20 1:41 AM EDT COVID-19 (Rule Out) 06/21/2023 06/21/2023 06/21/20 9:33 PM EDT COVID-19 (Rule Out) 09/17/2023 09/17/2023 09/17/20 7:58 PM EST COVID-19 (Rule Out) 10/14/2023 10/14/2023 10/14/19 24 9:16 AM EST Influenza 10/14/2023 10/14/2023 10/24/2023 9:27 PM EST COVID-19 (Rule Out) 01/04/2024 01/04/2024 01/04/20 9:18 PM EDT C-diff Rule Out 01/16/2024 01/16/2024 01/16/2024 1 0:36 PM EDT COVID-19 (Rule Out) 06/16/2024 06/16/2024 06/16/20 7:32 PM EDT documented as of this encounter Care Teams Rails Developer Relationship Specialty Start Date End Date Yossi Golden MD [address] [place] [address] PCP - General Family Medicine 09/28/18 documented as of this encounter
--- OUTSIDE RECORDS SUMMARY | 2025-05-25 19:57 | XMS_ITS | Encounter Summary ---
Author Organization [facility] Address [address] [place] [address] Care Team Providers Care Acetone Recovery Worker Name Role Phone Yossi Golden MD Primary Care Provider [phone] Yossi Golden MD Unavailable Encounter Details Date Type Department Care Team (Late st Contact Info) Description 11/06/2024 Orders Only [facility] [address] [place] [address] Yossi Golden MD [address] [place] [address] Social History Tobacco Use Types Packs/Day Years [...] often do you attend chur ch or presybeterian services? Patient declined 04/28/2024 Do you belong to any clubs o r organizations such as methodist groups, unions, fraternal or athletic groups, or [...] medical care, and heating? Somewhat hard 04/28/2024 [facility] Occupat ional Health - Occupational Stress [...] any time in the past 12 m [facility], were you homeless or living in a halfway (including now)? No 04/28/2024 Comments Unknown Sex [...] Procedure Name Priority Date/Time Associated Diagnosis Comments CT ABDOMEN/PELVIS WITH CONTRAST Routine 11/06/2024 10:04 AM EST documented in this encounter Results * CT ABDOMEN/PELVIS WITH CONTRAST (11/06/2024 10:04 AM EST) Anatomical Region Laterality Modality Radiographic Christina ging Yossi Golden MD IMG XR PROCEDURES Final Result documented in this encounter Visit Diagnoses Not on filedocumented in this encounter Additional Health Concerns Active Problems Noted Date Diagnosed Date Patient on antidepressant monitoring plan 2023 Baseline PHQ-9 01/20/2024 documented as of this encounter Care Teams Acetone Recovery Worker Relationship Specialty Start Date End Date Yossi Golden MD PCP - General Family Medicine 03/20/23 Yossi Golden MD [address] [place] [address] PCP - [facility] 09/23/24 documented as of this encounter
--- OUTSIDE RECORDS SUMMARY | 2025-05-25 19:57 | XMS_ITS | Encounter Summary ---
Author Organization [facility] Address [address] [place] [address] Care Team Providers Care Director Patient Accounting Name Role Phone Yossi Golden MD Primary Care Provider [phone] Yossi Golden MD Unavailable Encounter Details Date Type Department Care Team (Late st Contact Info) Description 10/01/2024 Orders Only [facility] [address] [place] [address] Yossi Golden MD [address] [place] [address] Social History Tobacco Use Types Packs/Day Years [...] often do you attend chur ch or sikh services? Patient declined 04/28/2024 Do you belong to any clubs o r organizations such as sabianist groups, unions, fraternal or athletic groups, or [...] medical care, and heating? Somewhat hard 04/28/2024 [facility] of Occupat ional Health - Occupational Stress [...] any time in the past 12 m [facility], were you homeless or living in a residential (including now)? No 04/28/2024 Comments Unknown Sex [...] Procedure Name Priority Date/Time Associated Diagnosis Comments SCANNED LABS Routine 10/01/2024 11:48 AM EST documented in this encounter Results * SCANNED LABS (10/01/2024 11:48 AM EST) Yossi Golden MD LAB CHG PERFORMABLES Final Resul t documented in this encounter Visit Diagnoses Not on filedocumented in this encounter Additional Health Concerns Active Problems Noted Date Diagnosed Date Patient on antidepressant monitoring plan 2023 Baseline PHQ-9 01/20/2024 documented as of this encounter Care Teams Director Patient Accounting Relationship Specialty Start Date End Date Yossi Golden MD PCP - General Family Medicine 03/20/23 Yossi Golden MD [address] [place] [address] PCP - [facility] 09/23/24 documented as of this encounter
--- OUTSIDE RECORDS SUMMARY | 2025-05-25 19:57 | XMS_ITS | Encounter Summary ---
Author Organization [facility] Address [address] [place] [address] Care Team Providers Care Divisional Human Resources Director Name Role Phone Yossi Golden MD Primary Care Provider [phone] Yossi Golden MD Unavailable Encounter Details Date Type Department Care Team (Late st Contact Info) Description 10/07/2024 Orders Only [facility] [address] [place] [address] Phan Sandy [address] [address] Social History Tobacco Use Types Packs/Day Years [...] often do you attend chur ch or restorationist services? Patient declined 04/28/2024 Do you belong to any clubs o r organizations such as moravian groups, unions, fraternal or athletic groups, or [...] medical care, and heating? Somewhat hard 04/28/2024 [facility] of Occupat ional Health - Occupational Stress [...] any time in the past 12 m [facility], were you homeless or living in [...] Date/Time Associated Diagnosis Comments SCANNED LABS Routine 10/07/2024 1:52 PM EST documented in this encounter Results * SCANNED LABS (10/07/2024 1:52 PM EST) Phan Sandy DO LAB CHG PERFORMABLES Final Resul t documented in this encounter Visit Diagnoses Not on filedocumented in this encounter Additional Health Concerns Active Problems Noted Date Diagnosed Date Patient on antidepressant monitoring plan 2023 Baseline PHQ-9 01/20/2024 documented as of this encounter Care Teams Divisional Human Resources Director Relationship Specialty Start Date End Date Yossi Golden MD PCP - General Family Medicine 03/20/23 Yossi Golden MD [address] [place] [address] PCP - [facility] 09/23/24 documented as of this encounter
--- OUTSIDE RECORDS SUMMARY | 2025-05-25 19:57 | XMS_ITS | Encounter Summary ---
Author Organization [facility] Address [address] [place] [address] Care Team Providers Care Assisted Living Assistant Name Role Phone Yossi Golden MD Primary Care Provider [phone] Yossi Golden MD Unavailable Encounter Details Date Type Department Care Team (Late st Contact Info) Description 10/05/2024 Orders Only [facility] [address] [place] [address] Dagoberto Leach MD [address] [place] [address] [place] [address] Social History Tobacco Use Types Packs/Day Years [...] often do you attend chur ch or restoration services? Patient declined 04/28/2024 Do you belong to any clubs o r organizations such as samaritan groups, unions, fraternal or athletic groups, or [...] medical care, and heating? Somewhat hard 04/28/2024 [facility] of Occupat ional Health - Occupational Stress [...] any time in the past 12 m [facility], were you homeless or living in a fpc (including now)? No 04/28/2024 Comments Unknown Sex [...] Date/Time Associated Diagnosis Comments SCANNED LABS Routine 10/05/2024 3:23 PM EST documented in this encounter Results * SCANNED LABS (10/05/2024 3:23 PM EST) Dagoberto Leach MD LAB CHG PERFORMABLES Final R esult documented in this encounter Visit Diagnoses Not on filedocumented in this encounter Additional Health Concerns Active Problems Noted Date Diagnosed Date Patient on antidepressant monitoring plan 2023 Baseline PHQ-9 01/20/2024 documented as of this encounter Care Teams Assisted Living Assistant Relationship Specialty Start Date End Date Yossi Golden MD PCP - General Family Medicine 03/20/23 Yossi Golden MD [address] [place] [address] PCP - [facility] 09/23/24 documented as of this encounter
--- OUTSIDE RECORDS SUMMARY | 2025-05-25 19:57 | XMS_ITS | Encounter Summary ---
Author Organization [facility] Address [address], [address] [place] [address] Care Team Providers Care Conche Loader And Unloader Name Role Phone Yossi Golden MD Primary Care Provider + Reason for Referral * Imaging (Routine) - Closed Specialty Diagnoses / Procedures Referred By Alie johnson Referred To Contact Radiology Diagnoses Abdominal pain, epigastric Procedures FL UGI W AIR CONTRAST Yossi Golden MD [address] [place] [address] Phone: tel: fax: Referral ID Status Reason Start Date Expiration Date Visits Re quested Visits Authorized [id number] Closed 05/26/2021 05/16/2022 1 1 Encounter Details Date Type Department Care Team (Late st Contact Info) Description 05/16/2021 Transcribe Orders [facility] [address] [place] [address] Yossi Golden MD [address] [place] [address] Abdominal pain, epigastric (Primary Dx) Social History Tobacco Use Types Packs/Day Years Used Date Smoking Tobacco: Every Day Cigarettes 0.8 15 Smokeless Tobacco: Never Comments: 4-5cigs/day 2019 Alcohol Use Standard Drinks/Week Comments No 0 (1 standard drink = 0.6 oz pur e alcohol) socially PHQ-2 Answer Date Recorded PHQ-9 Total Score 2 02/14/2021 Comments No Sex and Gender Information Value Date Recorded Sex Assigned at Female 03/16/2021 1:40 PM EDT Legal Sex Female 10:18 AM EST Gender Identity Female 03/16/2021 1:40 PM EDT Sexual Orientation Straight 03/16/2021 1: 40 PM EDT documented as of this encounter Plan of Treatment Upcoming Encounters Date Type Department Care Team (Late st Contact Info) Description 06/25/2025 8:30 AM EDT Appointment [facility] Nuclear Medicine [address] [place] [address] media/ resched w pt/ allergic to eggs 06/25/2025 10:30 AM EDT Appointment [facility] Nuclear Medicine [address] [place] [address] media/ resched w pt/ allergic to eggs 06/25/2025 12:30 PM EDT Appointment [facility] Nuclear Medicine [address] [place] [address] media/ resched w pt/ allergic to eggs documented as of this encounter Results * FL UGI W AIR CONTRAST (05/26/2021 11:37 AM EDT) Anatomical Region Laterality Modality Abdomen, Pelvis Computed Radiogr aphy 05/26/2021 11:4 4 AM EDT Impressions 05/26/2021 11:57 AM EDT Mild spontaneous gastroesophageal reflux in otherwise unremarkable slightly limited (poor gastric mucosal coating) upper GI fluoroscopic evaluation. Narrative 05/26/2021 11:57 AM EDT EXAMINATION: DOUBLE CONTRAST UPPER GI SERIES [...] The duodenal bulb and sweep are normal. Procedure Note Augustine Brower - 05/26/2021 EXAMINATION: DOUBLE CONTRAST UPPER GI SERIES 05/26/2021 TECHNIQUE: Double contrast upper GI series was performed with barium and aircontrast. FLUOROSCOPY DOSE AND TYPE OR TIME AND EXPOSURES: Total fluoroscopy time = 0.9 minutes. Total images acquired = 56.Radiation dose = 39.95 mGy. COMPARISON: None HISTORY: ORDERING SYSTEM PROVIDED HISTORY: Abdominal pain, epigastric FINDINGS: The esophagus is of normal caliber and demonstrates normal motility.There are no mucosal abnormalities seen. Patient orally ingested a 12.7 mmbarium sulfate tablet which passed into the stomach without delay. The gastroesophageal junction is normal. Mild spontaneousgastroesophageal reflux. The stomach demonstrates normal distensibility and fold pattern. However,it should be noted that there is limited coating of the gastric mucosa.. The duodenal bulb and sweep are normal. IMPRESSION: Mild spontaneous gastroesophageal reflux in otherwise unremarkableslightly limited (poor gastric mucosal coating) upper GI fluoroscopic evaluation. Yossi Golden MD IMG FLUOROSCOPY ORDERABL ES Final Result documented in this encounter Visit Diagnoses Diagnosis Abdominal pain, epigastric- Primary Abdominal pain, epigastric documented in this encounter Additional Health Concerns Infection Onset Date Last Indicated Resolved Time COVID-19 (Rule Out) 05/22/2021 05/22/2021 05/23/20 21 11:30 AM EDT COVID-19 (Rule Out) 09/06/2021 09/06/2021 09/06/20 21 4:09 PM EST COVID-19 (Rule Out) 03/11/2022 03/11/2022 03/11/20 22 1:41 AM EDT COVID-19 (Rule Out) 06/21/2023 06/21/2023 06/21/20 23 1:41 AM EDT COVID-19 (Rule Out) 06/21/2023 06/21/2023 06/21/20 9:33 PM EDT COVID-19 (Rule Out) 09/17/2023 09/17/2023 09/17/20 7:58 PM EST COVID-19 (Rule Out) 10/14/2023 10/14/2023 10/14/19 9:16 AM EST Influenza 10/14/2023 10/14/2023 10/24/2023 9:27 PM EST COVID-19 (Rule Out) 01/04/2024 01/04/2024 01/04/20 9:18 PM EDT C-diff Rule Out 01/16/2024 01/16/2024 01/16/2024 1 0:36 PM EDT COVID-19 (Rule Out) 06/16/2024 06/16/2024 06/16/20 7:32 PM EDT documented as of this encounter Care Teams Conche Loader And Unloader Relationship Specialty Start Date End Date Yossi Golden MD [address] [place] [address] PCP - General Family Medicine 09/28/18 documented as of this encounter
--- OUTSIDE RECORDS SUMMARY | 2025-05-25 19:57 | XMS_ITS | Clinical Summary ---
Author Organization [facility] Address [address] [place] [address] Care Team Providers Care Crutch Maker Name Role Phone Unavailable Primary Care Provider Unavailabl e Social History Tobacco Use Types Packs/Day Years Used Date Smoking Tobacco: Never Assessed Comments Unknown Sex and Gender Information Value Date Recorded Sex Assigned at Not on file Legal Sex Female 12:33 AM EDT Gender Identity Not on file Sexual Orientation Not on file Plan of Treatment Not on file
--- OUTSIDE RECORDS SUMMARY | 2025-05-25 19:57 | XMS_ITS | Encounter Summary ---
Author Organization [facility] Address [address] [place] [address] Care Team Providers Care Social Problems Specialist Name Role Phone Yossi Golden MD Primary Care Provider [phone] Yossi Golden MD Unavailable Encounter Details Date Type Department Care Team (Late st Contact Info) Description 05/28/2024 Orders Only [facility] [address] [place] [address] Yossi Golden MD [address] [place] [address] Social History Tobacco Use Types Packs/Day Years [...] often do you attend chur ch or sabianist services? Patient declined 04/28/2024 Do you belong to any clubs o r organizations such as yarsani groups, unions, fraternal or athletic groups, or [...] medical care, and heating? Somewhat hard 04/28/2024 [facility] of Occupat ional Health - Occupational Stress [...] any time in the past 12 m [facility], were you homeless or living in a senior care (including now)? No 04/28/2024 Comments Unknown Sex [...] Name Priority Date/Time Associated Diagnosis Comments CT ABDOMEN & PELVIS W Routine 05/23/2024 10:19 AM EDT documented in this encounter Results * CT ABDOMEN & PELVIS W (05/23/2024 10:19 AM EDT) Anatomical Region Laterality Modality Radiographic Christina ging Yossi Golden MD IMG XR PROCEDURES Final Result documented in this encounter Visit Diagnoses Not on filedocumented in this encounter Additional Health Concerns Active Problems Noted Date Diagnosed Date Patient on antidepressant monitoring plan 2023 Baseline PHQ-9 01/20/2024 documented as of this encounter Care Teams Social Problems Specialist Relationship Specialty Start Date End Date Yossi Golden MD PCP - General Family Medicine 03/20/23 Yossi Golden MD [address] [place] [address] PCP - [facility] 09/23/24 documented as of this encounter
--- OUTSIDE RECORDS SUMMARY | 2025-05-25 19:57 | XMS_ITS | Encounter Summary ---
Author Organization [facility] Address [address], [address] [place] [address] Care Team Providers Care Senior Front End Developer Name Role Phone Yossi Golden MD Primary Care Provider + Encounter Details Date Type Department Care Team (Late st Contact Info) Description 04/16/2016 FollowUp Telephone Encounter [facility] [address] [place], [place] [phone] Elo Aguirre RN Social History Tobacco Use Types Packs/Day Years Used Date Smoking Tobacco: Every Day Cigarettes Smokeless Tobacco: Never Alcohol Use Standard Drinks/Week Comments No 0 (1 standard drink = 0.6 oz pur e alcohol) Comments No Sex and Gender Information Value Date Recorded Sex Assigned at Female 03/16/2021 1:40 PM EDT Legal Sex Female 10:18 AM EST Gender Identity Female 03/16/2021 1:40 PM EDT Sexual Orientation Straight 03/16/2021 1: 40 PM EDT documented as of this encounter Plan of Treatment Upcoming Encounters Date Type Department Care Team (Late Contact Info) Description 06/25/2025 8:30 AM EDT Appointment [facility] Nuclear Medicine [address] [place], [place] [phone] media/ resched w pt/ allergic to eggs 06/25/2025 10:30 AM EDT Appointment [facility] Nuclear Medicine [address] [place] [address] media/ resched w pt/ allergic to eggs 06/25/2025 12:30 PM EDT Appointment [facility] Nuclear Medicine [address] [place] [address] media/ resched w pt/ allergic to eggs documented as of this encounter Visit Diagnoses Not on filedocumented in this encounter Additional Health Concerns Infection Onset Date Last Indicated Resolved Time MRSA Comment:03/05/2016 screening 03/30/2016 03/30/2016 03/25/2017 8 :40 AM EDT COVID-19 (Rule Out) 03/16/2021 03/16/2021 03/17/20 21 12:01 PM EDT COVID-19 (Rule Out) 05/22/2021 05/22/2021 05/23/20 21 11:30 AM EDT COVID-19 (Rule Out) 09/06/2021 09/06/2021 09/06/20 21 4:09 PM EST COVID-19 (Rule Out) 03/11/2022 03/11/2022 03/11/20 22 1:41 AM EDT COVID-19 (Rule Out) 06/21/2023 06/21/2023 06/21/20 23 1:41 AM EDT COVID-19 (Rule Out) 06/21/2023 06/21/2023 06/21/20 23 9:33 PM EDT COVID-19 (Rule Out) 09/17/2023 09/17/2023 09/17/20 23 7:58 PM EST COVID-19 (Rule Out) 10/14/2023 10/14/2023 10/14/19 24 9:16 AM EST Influenza 10/14/2023 10/14/2023 10/24/2023 9:27 PM EST COVID-19 (Rule Out) 01/04/2024 01/04/2024 01/04/20 24 9:18 PM EDT C-diff Rule Out 01/16/2024 01/16/2024 01/16/2024 1 0:36 PM EDT COVID-19 (Rule Out) 06/16/2024 06/16/2024 06/16/20 24 7:32 PM EDT documented as of this encounter Care Teams Senior Front End Developer Relationship Specialty Start Date End Date Yossi Golden MD [address] [place] [address] PCP - General Family Medicine 09/28/18 documented as of this encounter
--- OUTSIDE RECORDS SUMMARY | 2025-05-25 19:57 | XMS_ITS | Encounter Summary ---
Author Organization [facility] Address [address] [place] [address] Care Team Providers Care Counter Top Assembler Name Role Phone Yossi Golden MD Primary Care Provider [phone] Yossi Golden MD Unavailable Encounter Details Date Type Department Care Team (Late st Contact Info) Description 10/12/2024 Orders Only [facility] [address] [place] [address] Alphonso uSllivan MD [address] [place] [address] Social History Tobacco Use Types Packs/Day Years [...] often do you attend chur ch or restorationism services? Patient declined 04/28/2024 Do you belong [...] any time in the past 12 m [facility], were you homeless or living in a fdc (including now)? No 04/28/2024 Comments Unknown Sex [...] Date/Time Associated Diagnosis Comments SCANNED LABS Routine 10/12/2024 11:46 AM EST documented in this encounter Results * SCANNED LABS (10/12/2024 11:46 AM EST) Alphonso Sullivan MD LAB CHG PERFORMABLES Final Res ult documented in this encounter Visit Diagnoses Not on filedocumented in this encounter Additional Health Concerns Active Problems Noted Date Diagnosed Date Patient on antidepressant monitoring plan 2023 Baseline PHQ-9 01/20/2024 documented as of this encounter Care Teams Counter Top Assembler Relationship Specialty Start Date End Date Yossi Golden MD PCP - General Family Medicine 03/20/23 Yossi Golden MD [address] [place] [address] PCP - [facility] 09/23/24 documented as of this encounter
--- OUTSIDE RECORDS SUMMARY | 2025-05-25 19:58 | XMS_ITS | Encounter Summary ---
Author Organization [facility] Address [address] [place] [address] Care Team Providers Care Conference Center Manager Name Role Phone Aly Beverly MD [facility] [phone] Source Comments In the event this information is protected by the Federal Confidentiality of Alcohol and Drug AbusePatient Records regulations: The Federal rules restrict any use of the information to criminally investigate or prosecute any alcohol or drug abuse patient.[facility] Encounter Details Date Type Department Care Team (Late st Contact Info) Description 10/16/2024 Patient Msg Gastroenterology [facility] [address] [place] [phone] Ortiz Lackey DO [facility] [address] [place] [phone] Appointment Request Social History Tobacco Use Types Packs/Day Years Used Date Smoking Tobacco: Never Assessed Area Deprivation Index Answer Date Mahesh rded National Score (1-100), lower number is lower ri sk 78 10/17/2024 State Score (1-10), lower number is lower risk 7 10/17/2024 Data from: https://www.neighborhoodatlas.medicine.[facility].edu/. Last address used for calculation [address] [place] [address] 10/17/2024 Comments Unknown Sex and Gender Information Value Date Recorded Sex Assigned at Not on file Legal Sex Female 10:32 AM EST Gender Identity Not on file Sexual Orientation Not on file documented as of this encounter Plan of Treatment Not on file documented as of this encounter Visit Diagnoses Not on filedocumented in this encounter Care Teams Conference Center Manager Relationship Specialty Start Date End Date Aly Beverly MD [address] [address] Referring Internal Medicine 09/15/24 documented as of this encounter
--- OUTSIDE RECORDS SUMMARY | 2025-05-25 19:58 | XMS_ITS | Encounter Summary ---
Author Organization [facility] Address [address] [facility] [place] [address] Care Team Providers Care Superintendent Ammunition Storage Name Role Phone Yossi Golden MD Primary Care Provider Yossi Golden MD Unavailable Encounter Details Date Type Department Care Team (Late st Contact Info) Description 06/22/2024 Orders Only [facility] [address] [place] [address] Dagoberto Leach MD [address] [place] [address] [place] [address] Social History Tobacco Use Types Packs/Day Years [...] often do you attend chur ch or gnosticism services? Patient declined 04/28/2024 Do you belong to any clubs o r organizations such as jehovah's witness groups, unions, fraternal or athletic groups, or [...] medical care, and heating? Somewhat hard 04/28/2024 [facility] [place] of Occupat ional Health - Occupational Stress [...] any time in the past 12 m [facility], were you homeless or living in a prison (including now)? No 04/28/2024 Comments Unknown Sex [...] Associated Diagnosis Comments MISCELLANEOUS LAB TEST Routine 06/20/2024 12:41 PM EDT documented in this encounter Results * - Miscellaneous Test (06/20/2024 12:41 PM EDT) Dagoberto Leach MD LAB BLOOD ORDERABLES Final R esult documented in this encounter Visit Diagnoses Not on filedocumented in this encounter Additional Health Concerns Active Problems Noted Date Diagnosed Date Patient on antidepressant monitoring plan 2023 Baseline PHQ-9 01/20/2024 documented as of this encounter Care Teams Superintendent Ammunition Storage Relationship Specialty Start Date End Date Yossi Golden MD PCP - General Family Medicine 03/20/23 Yossi Golden MD [address] [place] [address] PCP - [facility] 09/23/24 documented as of this encounter
--- OUTSIDE RECORDS SUMMARY | 2025-05-25 19:58 | XMS_ITS | Encounter Summary ---
Author Organization [facility] Address [address] [place] [address] Care Team Providers Care Plier Worker Name Role Phone Yossi Golden MD Primary Care Provider [phone] Yossi Golden MD Unavailable Encounter Details Date Type Department Care Team (Late st Contact Info) Description 02/01/2025 Orders Only [facility] [address] [place] [address] Yossi Golden MD [address] [place] [address] Social History Tobacco Use Types Packs/Day Years [...] often do you attend chur ch or adventist services? Patient declined 04/28/2024 Do you belong to any clubs o r organizations such as sikh groups, unions, fraternal or athletic groups, or [...] medical care, and heating? Somewhat hard 04/28/2024 [facility] Occupat ional Health - Occupational [...] any time in the past [facility], were you homeless or living in a longterm (including now)? No 04/28/2024 Comments Unknown Sex [...] Diagnosis Comments CT ABDOMEN/PELVIS WITH CONTRAST Routine 02/01/2025 3:19 PM EDT documented in this encounter Results * CT ABDOMEN/PELVIS WITH CONTRAST (02/01/2025 3:19 PM EDT) Anatomical Region Laterality Modality Radiographic Christina ging Yossi Golden MD IMG XR PROCEDURES Final Result documented in this encounter Visit Diagnoses Not on filedocumented in this encounter Additional Health Concerns Active Problems Noted Date Diagnosed Date Patient on antidepressant monitoring plan 2023 Baseline PHQ-9 01/20/2024 documented as of this encounter Care Teams Plier Worker Relationship Specialty Start Date End Date Yossi Golden MD PCP - General Family Medicine 03/20/23 Yossi Golden MD [address] [place] [address] PCP - [facility] 09/23/24 documented as of this encounter
--- OUTSIDE RECORDS SUMMARY | 2025-05-25 19:58 | XMS_ITS | Clinical Summary ---
Author Organization [facility] Address [address] [place] [address] Care Team Providers Care Youth Teacher Name Role Phone Yossi Golden MD Primary Care Provider [phone] Yossi Golden MD Unavailable Allergies Active Allergy Reactions Criticality Noted Date Comments Amoxicillin Nausea And Vomiting Low 02/27/2016 Egg-Derived Products Other 02/27/2016 Abd pain Ketorolac Tromethamine Itching,Other,Adrienne rtn ess of breath High 01/24/2013 Kiwi Extract Itching 06/03/2023 Latex Itching 02/27/2016 Pruritis Meperidine Itching,Shortness of breath High 02/27/2016 UNKNOWN REACTION Penicillin G Other 10/01/2022 Phenazopyridine Anxiety Low 02/27/2016 Medications Glucose Blood (Blood Glucose Test) stripIndications: Type 2 diabetes mellitus with hyperglycemia, with long-term current use of insulin (HCC) 1 each by In Vitro route in the morning and 1 each in the evening and 1 each before bedtime. 100 strip 11 04/07/20 24 Active glipiZIDE (Glucotrol) 10 MG tablet Take 20 mg by mouth in the morning and 20 mg before bedtime. Active promethazine (Phenergan) 25 MG suppository Insert 25 mg into the rectum every 6 (six) hours if needed for nausea or vomiting Active famotidine (Pepcid) 40 MG tablet Take by mouth Active metoclopramide (Reglan) 10 MG tabletIndications :Diabetic gastroparesis associated with type 2 diabetes mellitus (HCC) Take 1 tablet (10 mg) by mouth in the morning and 1 tablet (10 mg) at noon and 1 tablet (10 mg) in the evening and 1 tablet (10 mg) before bedtime. 120 tablet 11 06/22/20 24 Active Jardiance 10 MG Take 10 mg by mouth Daily 06/23/20 24 Active insulin glargine (Lantus SoloStar) 100 UNIT/ML penIndications:Ty pe 2 diabetes mellitus with hyperglycemia, with long-term current use of insulin ([facility]) Inject 25 Units under the skin at bedtime 07/09/20 24 Active ondansetron (Zofran) 4 MG tablet Take 8 mg by mouth every 8 (eight) hours if needed for nausea or vomiting Active Continuous Glucose Sales Performance Manager (Dexcom G7 Sales Performance Manager) deviceIndications :Type 2 diabetes mellitus with hyperglycemia, with long-term current use of insulin ([facility]) 1 each continuously 1 each 09/24/19 25 Active hydrOXYzine pamoate (Vistaril) 25 MG capsuleIndication s:Generalized anxiety disorder Take 1 capsule (25 mg) by mouth 4 (four) times a day as needed for anxiety 60 capsule 3 10/22/19 25 Active FLUoxetine (PROzac) 40 MG capsuleIndication s:Major depressive disorder, recurrent, moderate (HCC) Take 1 capsule (40 mg) by mouth Daily 30 capsule 5 12/15/19 25 Active tiZANidine (Zanaflex) 4 MG tabletIndications :DDD (degenerative disc disease), lumbar Take 1 tablet (4 mg) by mouth 3 (three) times a day as needed for muscle spasms 60 tablet 2 04/15/20 25 Active atorvastatin (Lipitor) 40 MG tabletIndications :Dyslipidemia Take 1 tablet (40 mg) by mouth at bedtime 30 tablet 5 04/20/20 25 Active Continuous Glucose Sensor (Dexcom G7 Sensor) miscIndications:T ype 2 diabetes mellitus with hyperglycemia, with long-term current use of insulin ([facility]) 1 each continuously 2 each 11 04/20/20 25 Active Active Problems Problem Noted Date Diagnosed Date Dyslipidemia 10/08/2024 Class 2 severe obesity due t o excess calories with serious comorbidity and body mass index (BMI) of 37.0 to 37.9 in adult 08/11/2024 Assessment & Plan (10/08/2024 10:50 AM EST): Weight loss indicated Assessment & Plan (08/11/2024 12:17 PM EST): Weight loss indicated Nonalcoholic fatty liver 07/09/2024 Assessment & Plan (10/08/2024 10:49 AM EST): Need to control lipids and lose weight. Start lipitor. Assessment & Plan (08/11/2024 12:17 PM EST): Follow with GI. Assessment & Plan (07/09/2024 1:36 PM EDT): Follow with GI. Diabetic gastroparesis assoc iated with type 2 diabetes mellitus 04/29/2024 Assessment & Plan (10/08/2024 10:49 AM EST): Symptoms unchanged and continue medication. Follow with GI. Assessment & Plan (08/11/2024 12:15 PM EST): Symptoms unchanged and continue medication. Follow with GI. Assessment & Plan (07/09/2024 1:35 PM EDT): Symptoms improved and continue reglan. Follow with GI. Assessment & Plan (06/08/2024 2:20 PM EDT): Continued symptoms and stop trulicity. Start norco PRN for pain. Assessment & Plan (04/29/2024 12:24 PM EDT): Severe GI symptoms and likely gastroparesis. Start reglan as ordered. Check GES and refer to GI. Bilateral leg edema 01/08/2024 DDD (degenerative disc disease), lumbar 01/08/20 24 Generalized anxiety disorder 01/08/2024 Assessment & Plan (04/21/2024 12:20 PM EDT): Worsening symptoms and increase zoloft. Warned will take 2-3 weeks to notice improvement in mood. Gastroesophageal reflux disease 01/08/2024 Assessment & Plan (04/21/2024 12:21 PM EDT): Symptoms controlled with omeprazole and continue. Persistent insomnia 01/08/2024 Major depressive disorder, recurrent, moderate 0 01/08/2024 Assessment & Plan (10/08/2024 10:50 AM EST): Symptoms unchanged and continue prozac. Assessment & Plan (07/09/2024 1:36 PM EDT): Symptoms improved and continue prozac. Assessment & Plan (06/08/2024 2:20 PM EDT): Worsening symptoms and no change with increased zoloft. Stop zoloft and try prozac. Warned will take 2-3 weeks to notice improvement in mood. Assessment & Plan (04/21/2024 12:20 PM EDT): Worsening symptoms and increase zoloft. Warned will take 2-3 weeks to notice improvement in mood. Bilateral pulmonary embolism 01/08/2024 Type 2 diabetes mellitus wit h hyperglycemia, with long-term current use of insulin 01/08/2024 Assessment & Plan (10/08/2024 10:49 AM EST): BS improved and A1C 8.0. Follow with endo. Assessment & Plan (08/11/2024 12:16 PM EST): BS improved and A1C 7.0. Follow with endo. Assessment & Plan (07/09/2024 1:36 PM EDT): BS improved and A1C 7.0. Follow with endo. Assessment & Plan (06/08/2024 2:21 PM EDT): BS improved and continue lantus. Stick to ADA diet and limit carbs. Assessment & Plan (04/21/2024 12:19 PM EDT): BS slowly improving and check A1C. Stick to ADA diet and limit carbs. Resolved Problems Problem Noted Date Diagnosed Date Resolved Date Abscess of axilla, left 04/21/202405/24 Assessment & Plan (04/21/2024 12:22 PM EDT): Developed abscess related to uncontrolled diabetes. Start clinda and use warm compresses. Need to control BS. Encounters Date Type Department Care Team Description 04/27/2025 Telephone [facility] [address] [place] [address] Yossi Golden MD 04/20/2025 Refill [facility] [address] [place] [address] Yossi Golden MD Dyslipidemia ; Type 2 diabetes mellitus with hyperglycemia, with long-term current use of insulin (HCC) 04/15/2025 Telephone [facility] [address] [place] [address] Yossi Golden MD 04/15/2025 Refill [facility] [address] [place] [address] Yossi Golden MD DDD (degenerative disc disease), lumbar 04/13/2025 Refill [facility] [address] [place] [address] Yossi Golden MD 04/01/2025 Refill [facility] [address] [place] [address] Yossi Golden MD DDD (degenerative disc disease), lumbar from Last 3 Months Immunizations Immunization Administration Dates Next Due Tdap 05/24/2020,10/21/2017 Social History Tobacco Use Types Packs/Day Years [...] often do you attend chur ch or yazidi services? Patient declined 04/28/2024 Do you belong to any clubs o r organizations such as yazidi groups, unions, fraternal or athletic groups, or [...] medical care, and heating? Somewhat hard 04/28/2024 [facility] of Occupat ional Health - Occupational Stress [...] any time in the past 12 m [facility], were you homeless or living in a usp (including now)? No 04/28/2024 Comments Unknown Sex and Gender Information Value Date Recorded Sex Assigned at Female 01/15/2024 2:04 PM EDT Legal Sex Female 7:09 PM EDT Gender Identity Female 01/15/2024 2:04 PM EDT Sexual Orientation Not on file Last Filed Vital Signs Vital Sign Reading Time Taken Comments Blood Pressure 120/70 10/08/2024 10:03 AM EST Pulse 81 10/08/2024 10:03 AM EST Temperature 36.4 C (97.5 F) 10/08/2024 10:03 AM EST Respiratory Rate 22 10/08/2024 10:03 AM EST Oxygen Saturation 98% 10/08/2024 10:03 AM EST Inhaled Oxygen Concentration - - Weight 112 kg (246 lb) 10/08/2024 10:03 AM EST Height 172.7 cm (5' 8 ) 10/08/2024 10:03 AM EST Body Mass Index 37.4 10/08/2024 10:03 AM EST Plan of Treatment Health Maintenance Due Date Last Done Comments Pap Smear 02/15/2024 02/14/2021, 02/14/2021 Cervical Cancer Screening 2024 HPV/Cotest 2024 Diabetes: Urine Protein Screening 04/21/2025 024 Influenza Vaccine (#1) 2025 Diabetes: Hemoglobin A1C 06/04/2025 025, 09/30/2024, 06/23/2024, Additional history exists Diabetes: Retinopathy Screening 05/13/2026 4, 01/30/2023 Goals Goal Patient Goal Type Associated Problems Recent Progress Patient-Stated? Author Help patient manage antidepressant medication Care Plan Patient on antidepressant monitoring plan No Caryl Douglass MA Baseline PHQ-9 Care Plan Baseline PHQ-9 No Caryl Douglass MA Procedures Procedure Name Priority Date/Time Associated Diagnosis Comments HEMOGLOBIN A1C Routine 06/23/2024 1:30 PM EDT from Last 3 Months or Most Recently Relevant to Health Maintenance Results * Hemoglobin A1c (06/23/2024 1:30 PM EDT) Blood Venous blood specimen / Unknown Yossi Golden MD LAB BLOOD ORDERABLES Final Resul t from Last 3 Months or Most Recently Relevant to Health Maintenance Additional Health Concerns Active Problems Noted Date Diagnosed Date Patient on antidepressant monitoring plan 2023 Baseline PHQ-9 01/20/2024 Insurance [employer] Care Teams Youth Teacher Relationship Specialty Start Date End Date Yossi Golden MD PCP - General Family Medicine 03/20/23 Yossi Golden MD [address] [place] [address] PCP - [facility] 09/23/24
--- OUTSIDE RECORDS SUMMARY | 2025-05-25 19:58 | XMS_ITS | Encounter Summary ---
Author Organization [facility] Address [address] [facility] [place] [address] Care Team Providers Care Shelf Filler Name Role Phone Yossi Golden MD Primary Care Provider [phone] Yossi Golden MD Unavailable Encounter Details Date Type Department Care Team (Late st Contact Info) Description 10/30/2023 Orders Only [facility] [address] [place] [address] Yossi Golden MD [address] [place] [address] Social History Tobacco Use Types Packs/Day Years [...] on file documented as of this encounter Procedures Procedure Name Priority Date/Time Associated Diagnosis Comments XR CHEST 1 VIEW Routine 10/25/2023 2:39 PM EST documented in this encounter Results * XR chest 1 view (10/25/2023 2:39 PM EST) Anatomical Region Laterality Modality Chest Radiographic Christina ging Yossi Golden MD IMG XR PROCEDURES Final Result documented in this encounter Visit Diagnoses Not on filedocumented in this encounter Care Teams Shelf Filler Relationship Specialty Start Date End Date Yossi Golden MD PCP - General Family Medicine 03/20/23 Yossi Golden MD [address] [place] [address] PCP - [facility] 09/23/24 documented as of this encounter
--- OUTSIDE RECORDS SUMMARY | 2025-05-25 19:58 | XMS_ITS | Encounter Summary ---
Author Organization [facility] Address [address] [place] [address] Care Team Providers Care Turn Laster Name Role Phone Yossi Golden MD Primary Care Provider [phone] Yossi Goldne MD Unavailable Encounter Details Date Type Department Care Team (Late st Contact Info) Description 07/06/2024 Orders Only [facility] [address] [place] [address] Chavo Squires DO Social History Tobacco Use Types Packs/Day Years [...] any clubs o r organizations such as scientology groups, unions, fraternal or athletic groups, or [...] medical care, and heating? Somewhat hard 04/28/2024 [facility] of Occupat ional Health - Occupational Stress [...] any time in the past [address] [facility], were you homeless or living in a [...] Date/Time Associated Diagnosis Comments SCANNED LABS Routine 07/06/2024 1:13 PM EDT C-PAP TITRATION SLEEP STUDY Routine 07/06/2024 1:12 PM EDT SCANNED LABS Routine 07/06/2024 1:12 PM EDT documented in this encounter Results * SCANNED LABS (07/06/2024 1:13 PM EDT) us Kaylinn Dokken DO LAB CHG PERFORMABLES Final Res ult * SCANNED LABS (07/06/2024 1:12 PM EDT) us Kaylinn Dokken DO LAB CHG PERFORMABLES Final Res ult * C-PAP TITRATION SLEEP STUDY (07/06/2024 1:12 PM EDT) Anatomical Region Laterality Modality Radiographic Christina ging us Kaylinn Dokken DO IMG XR PROCEDURES Final Result documented in this encounter Visit Diagnoses Not on filedocumented in this encounter Additional Health Concerns Active Problems Noted Date Diagnosed Date Patient on antidepressant monitoring plan 2023 Baseline PHQ-9 01/20/2024 documented as of this encounter Care Teams Turn Laster Relationship Specialty Start Date End Date Yossi Golden MD PCP - General Family Medicine 03/20/23 Yossi Golden MD [address] [place] [address] [facility] 09/23/24 documented as of this encounter
--- OUTSIDE RECORDS SUMMARY | 2025-05-25 19:58 | XMS_ITS | Encounter Summary ---
Author Organization [facility] Address [address] [place] [address] Care Team Providers Care Healthcare Applications Analyst Name Role Phone Yossi Golden MD Primary Care Provider [phone] Yossi Golden MD Unavailable Encounter Details Date Type Department Care Team (Late st Contact Info) Description 05/14/2024 Clinisync Result Encounter [facility] External Department Unsolicited Yossi Golden MD [address] [place] [address] Social History Tobacco Use Types Packs/Day Years [...] often do you attend chur ch or buddhist services? Patient declined 04/28/2024 Do you belong to any clubs o r organizations such as gnosticist groups, unions, fraternal or athletic groups, or [...] medical care, and heating? Somewhat hard 04/28/2024 [facility] of Occupat ional Health - [...] any time in the past 12 m [facility], were you homeless or living in a long-term (including now)? No 04/28/2024 Comments Unknown Sex [...] Procedure Name Priority Date/Time Associated Diagnosis Comments NM GASTRIC EMPTYING 05/14/2024 1 :26 PM EDT documented in this encounter Results * NM GASTRIC EMPTYING (05/14/2024 1:26 PM EDT) Anatomical Region Laterality Modality Other 05/14/2024 1:26 PM EDT Narrative 05/14/2024 1:31 PM EDT EXAMINATION: NUCLEAR MEDICINE GASTRIC EMPTYING STUDY 05/14/2024 8:10 am TECHNIQUE: Following ingestion of oatmeal labeled with 1.1 mCi Tc 99m sulfur colloid, planar images of the chest and abdomen were obtained at 0, 1, 2 and 4 hours in both anterior and posterior projections. Regions of interest were drawn around the stomach and geometric means were calculated. All medications capable of altering motility were held. COMPARISON: None. HISTORY: ORDERING SYSTEM PROVIDED HISTORY: Diabetic gastroparesis (HCC) TECHNOLOGIST PROVIDED HISTORY: SOLID Is the patient ?->No FINDINGS: The gastric emptying were calculated as follows: At 60 min, there is 12% emptying of the stomach. At 120 min, there is 14% emptying of the stomach. At 240 min, there is 37% emptying of the stomach. No significant esophageal retention, hiatal hernia or reflux was observed. IMPRESSION: Severely delayed gastric emptying. Interpreted by: Chadd Acosta MD Signed by: Chadd Acosta MD 05/14/24 Final result Procedure Note Radiology, Radiologist, - 05/14/2024 EXAMINATION: NUCLEAR MEDICINE GASTRIC EMPTYING STUDY 05/14/2024 8:10 am TECHNIQUE: Following ingestion of oatmeal labeled with 1.1 mCi Tc 99m sulfurcolloid, planar images of the chest and abdomen were obtained at 0, 1, 2 and 4hours in both anterior and posterior projections. Regions of interest weredrawn around the stomach and geometric means were calculated. All medications capable of altering motility were held. COMPARISON: None. HISTORY: ORDERING SYSTEM PROVIDED HISTORY: Diabetic gastroparesis (HCC) TECHNOLOGIST PROVIDED HISTORY: SOLID Is the patient ?->No FINDINGS: The gastric emptying were calculated as follows: At 60 min, there is 12% emptying of the stomach. At 120 min, there is 14% emptying of the stomach. At 240 min, there is 37% emptying of the stomach. No significant esophageal retention, hiatal hernia or reflux wasobserved. IMPRESSION: Severely delayed gastric emptying. Interpreted by: Chadd Acosta MD Signed by: Chadd Acosta MD 05/14/24 Final result Yossi Golden MD [facility] Final Result documented in this encounter Visit Diagnoses Not on filedocumented in this encounter Additional Health Concerns Active Problems Noted Date Diagnosed Date Patient on antidepressant monitoring plan 2023 Baseline PHQ-9 01/20/2024 documented as of this encounter Care Teams Healthcare Applications Analyst Relationship Specialty Start Date End Date Yossi Golden MD PCP - General Family Medicine 03/20/23 Yossi Golden MD [address] [place] [address] PCP - [facility] 09/23/24 documented as of this encounter
--- OUTSIDE RECORDS SUMMARY | 2025-05-25 19:58 | XMS_ITS | Encounter Summary ---
Author Organization [facility] Address [address] [place] [address] Care Team Providers Care Brewery Technician Name Role Phone Aly Beverly MD [facility] [phone] Source Comments In the event this information is protected by the Federal Confidentiality of Alcohol and Drug AbusePatient Records regulations: The Federal rules restrict any use of the information to criminally investigate or prosecute any alcohol or drug abuse patient.[facility] Encounter Details Date Type Department Care Team (Late st Contact Info) Description 01/08/2025 Patient Msg [facility] [address] [place] [address] Provider, [facility] Egd with POP Social History Tobacco Use Types Packs/Day Years Used Date Smoking Tobacco: Every Day Cigarettes Smokeless Tobacco: Never Comments:1/2 ppd Alcohol Use Standard Drinks/Week Comments Never 0 (1 standard drink = 0.6 oz pur e alcohol) Area Deprivation Index Answer Date Mahesh rded National Score (1-100), lower number is lower ri sk 78 10/17/2024 State Score (1-10), lower number is lower risk 7 10/17/2024 Data from: https://www.neighborhoodatlas.medicine.[facility].edu/. Last address used for calculation [address] 10/17/2024 Comments Unknown Sex and Gender Information Value Date Recorded Sex Assigned at Not on file Legal Sex Female 10:32 AM EST Gender Identity Not on file Sexual Orientation Not on file documented as of this encounter Plan of Treatment Not on file documented as of this encounter Visit Diagnoses Not on filedocumented in this encounter Care Teams Brewery Technician Relationship Specialty Start Date End Date Aly Beverly MD [address] [address] Referring Internal Medicine 09/15/24 documented as of this encounter
--- OUTSIDE RECORDS SUMMARY | 2025-05-25 19:58 | XMS_ITS | Encounter Summary ---
Author Organization [facility] Address [address] [place] [address] Care Team Providers Care Pipelines Manager Name Role Phone Yossi Golden MD Primary Care Provider Yossi Golden MD Unavailable Encounter Details Date Type Department Care Team (Late st Contact Info) Description 01/26/2025 Orders Only [facility] [address] [place] [address] Alphonso Sullivan MD [address] [place] [address] Social History Tobacco Use Types Packs/Day Years [...] often do you attend chur ch or catholic services? Patient declined 04/28/2024 Do you belong to any clubs o r organizations such as mormonism groups, unions, fraternal or athletic groups, or [...] medical care, and heating? Somewhat hard 04/28/2024 [facility] of Occupat ional Health - Occupational [...] any time in the past 12 m [facility], were you homeless or living in a retirement (including now)? No 04/28/2024 Comments Unknown Sex [...] Name Priority Date/Time Associated Diagnosis Comments XR ABDOMEN SERIES W/ CHEST 1 VIEW Routine 01/26/2025 3:10 PM EDT SCANNED LABS Routine 01/26/2025 9:48 AM EDT documented in this encounter Results * XR ABDOMEN SERIES W/ CHEST 1 VIEW (01/26/2025 3:10 PM EDT) Anatomical Region Laterality Modality Radiographic Christina ging us Alphonso Sullivan MD IMG XR PROCEDURES Final Result * SCANNED LABS (01/26/2025 9:48 AM EDT) us Alphonso Sullivan MD LAB CHG PERFORMABLES Final Res ult documented in this encounter Visit Diagnoses Not on filedocumented in this encounter Additional Health Concerns Active Problems Noted Date Diagnosed Date Patient on antidepressant monitoring plan 2023 Baseline PHQ-9 01/20/2024 documented as of this encounter Care Teams Pipelines Manager Relationship Specialty Start Date End Date Yossi Golden MD PCP - General Family Medicine 03/20/23 Yossi Golden MD [address] [place] [address] PCP - [facility] 09/23/24 documented as of this encounter
--- OUTSIDE RECORDS SUMMARY | 2025-05-25 19:58 | XMS_ITS | Clinical Summary ---
Author Organization [facility] Address [address], [address] [place] [address] Care Team Providers Care Catering And Events Manager Name Role Phone Yossi Golden MD Primary Care Provider + Allergies Active Allergy Reactions Criticality Noted Date Comments Amoxicillin Nausea And Vomiting Low 02/27/2016 hives Meperidine Shortness Of Breath,Itching High 02/27/2016 UNKNOWN REACTION Egg-Derived Products Other (See Comments) 02/26 Abd pain Ketorolac Tromethamine Shortness Of Breath,Itching High 01/24/2013 Ketorolac Tromethamine Other (See Comments) 03/2022 Kiwi Extract Itching 06/03/2023 Latex Itching 02/27/2016 Pruritis Penicillin V Rash Low 02/27/2016 hives Penicillin G Other (See Comments) 10/01/2022 Hives Phenazopyridine Hcl Anxiety Low 02/27/2016 Medications albuterol sulfate HFA (PROVENTIL HFA) 108 (90 Base) MCG/ACT inhaler Inhale 2 puffs into the lungs every 6 hours as needed for Wheezing 18 g 3 1 Active glipiZIDE (GLUCOTROL) 10 MG tablet Take 2 tablets by mouth 2 times daily (before meals) Active TRUE METRIX BLOOD GLUCOSE TEST strip 2 Active hydrOXYzine HCl (ATARAX) 25 MG tablet take 1 tablet by mouth every 6 hours if needed 2 Active lidocaine (LIDODERM) 5 % Place 1 patch onto the skin daily 12 hours on, 12 hours off. 30 patch 4 Active Insulin Pen Needle (PEN NEEDLES 12/06 ) 31G X 5 MM MISC 1 each by Does not apply route daily 100 each 3 4 Active metoclopramide (REGLAN) 10 MG tablet Take 1 tablet by mouth 4 times daily for 10 days 40 tablet 4 Active FLUoxetine (PROZAC) 10 MG capsule Take 1 capsule by mouth at bedtime Active pantoprazole (PROTONIX) 20 MG tablet Take 1 tablet by mouth daily Active prochlorperazin e (COMPAZINE) 10 MG tablet Take 1 tablet by mouth every 6 hours as needed (nausea) 20 tablet 4 Active insulin glargine (LANTUS SOLOSTAR) 100 UNIT/ML injection pen Inject 25 Units into the skin nightly 15 mL 2 5 Active promethazine (PHENERGAN) 25 MG tablet Take 1 tablet by mouth every 6 hours as needed for Nausea WARNING: May cause drowsiness. May impair ability to operate vehicles or machinery. Do not use in combination with alcohol. 20 tablet 5 Active Active Problems Patient Care Coordination No te Formatting of this note migh t be different from the original. 5 days Lovenox after TLH is sufficient per Dr. Hwang 10/09/2022 Hx mrsa need three negs EDC in book = 12/31/2017 [place] [facility] risk assesment form = Faxed testing = Unsure at this time- History C/S ? = Yes x1 Gender = Circ = Ped = Breast or bottle = Breast Epidural/natural = RH factor = B Positive Rhogam? = Negative Flu shot = TDAP (27-36 wks)= GBS = C/S 12/26/17 @ 7:30 Card - Problem Noted Date Diagnosed Date Chronic pancreatitis 11/05/2024 Acute pancreatitis without infection or necrosis 10/20/2024 Nausea and vomiting 07/07/2024 Gastroparesis 07/07/2024 Borderline diabetes 12/25/2023 Type 2 diabetes mellitus 12/25/2023 Intractable abdominal pain 12/24/2023 L4-L5 disc bulge 07/29/2023 Weakness of both lower extremities 06/21/2023 Post-op pain 11/12/2022 Complication of surgical procedure 11/12/2022 Bladder adhesions 11/12/2022 Adhesions of uterus 11/12/2022 Adhesion of omentum 11/12/2022 Lumbar radiculopathy 09/25/2020 Hypercoagulable state 08/03/2020 PE (pulmonary thromboembolism) 06/13/2020 Mild concentric left ventricular hypertrophy (LV H) 04/04/2020 Tachycardia 12/30/2019 Lightheadedness 12/30/2019 Prehypertension 12/30/2019 Status post repeat low transverse secti on 06/27/2017 H/O acute pancreatitis 04/09/2017 Smoker 04/09/2017 Hiatal hernia 04/09/2017 Overview (04/09/2017): Small. On CT scan Cholangiectasis 03/26/2017 Obesity with body mass index 30 or greater 03/25 Bandemia 03/25/2017 Hypercalcemia 03/25/2017 Hx of unilateral salpingectomy Menorrhagia with regular cycle Resolved Problems Problem Noted Date Diagnosed Date Resolved Date Gestational diabetes 05/22/2020 021 Uterine contractions during 04/07/2020 03/20/2021 Abdominal cramps 03/29/2020 03/29/2020 History of pre-eclampsia 12/30/2019 Nicotine dependence, cigaret tasha, uncomplicated 03/18/2018 03/20/2021 Acute pancreatitis 03/25/2017 5 Wound infection/hemorrhage, obstetric surgical, condition 03/30/2016 6 03/03/2016 05/30/2016 Abdominal cramping affecting , antepartum 03/03/2016 05/30/2016 Trichomoniasis 03/03/2016 05/30/2016 Overview (06/24/2024): Problem List Diagnosis Replacement Utility 06/23/2024 38 weeks gestation of 03/26/2017 Breech presentation 03/26/20 17 S/P primary low transverse 03/26/2017 Gestational diabetes mellitu s (GDM) in third trimester 03/26/2017 Encounters Date Type Department Care Team Description 03/29/2025 Transcribe Orders [facility] [address] [id number] August Sánchez, Diabetic gastroparesis associated with type 2 diabetes mellitus (HCC) (Primary Dx) from Last 3 Months Immunizations Immunization Administration Dates Next Due MMR, PRIORIX, M-M-R II, (age 12m+), SC, 0.5mL TDaP, ADACEL (age 10y-64y), BOOSTRIX (age 10y+), IM, 0.5mL 05/24/2020,10/21/2017 Family History Medical History Relation Name Comments Deep Vein Thrombosis Father Cancer Maternal Grandfather liver Hypertension Maternal Grandmother Deep Vein Thrombosis Paternal Grandfather Diabetes Paternal Grandfather IDDM Hypertension Paternal Grandfather Blood C lot that traveled Diabetes Paternal Grandmother IDDM Relation Name Status Comments Daughter Alive Father Alive Maternal Grandfather Maternal Grandmother Mother Alive Paternal Grandfather Paternal Grandmother Alive Sister Alive Social History Tobacco Use Types Packs/Day Years Used Date Smoking Tobacco: Every Day Cigarettes 0.5 15 Smokeless Tobacco: Never Tobacco Cessation:Ready to Q uit: Not Asked; Counseling Given: Not Answered Comments: 4-5cigs/day 02/18/2020 Alcohol Use Standard Drinks/Week Comments Not Currently 0 (1 standard drink = 0.6 oz pur e alcohol) socially Zo[employer] Answer Date Recorded In the past 12 months has [employer], gas, oil, or water [employer] threatened to shut off services in your home? No 11/05/2024 AUDIT-C Answer Date Recorded Q1: How often do you have a drink containing alcohol? Never 02/12/2025 Q2: How many drinks containi ng alcohol do you have on a typical day when you are drinking? Patient does not drink Q3: How often do you have si x or more drinks on one occasion? Never 02/12/2025 PHQ-2 Answer Date Recorded PHQ-9 Total Score 2 02/14/2021 Hunger Vital Sign Answer Date Recorded Within the past 12 months, y ou worried that your food would run out before you got the money to buy more. Never true 11/05/19 25 Within the past 12 months, t he food you bought just didn't last and you didn't have money to get more. Never true 11/05/2024 PRAPARE - Transportation Answer Date Re corded In the past 12 months, has l ack of transportation kept you from medical appointments or from getting medications? No 10/24 In the past 12 months, has l ack of transportation kept you from meetings, work, or from getting things needed for daily living? No 11/05/2024 Housing Stability Vital Sign Answer Marcelino e Recorded In the last 12 months, was t here a time when you were not able to pay the mortgage or rent on time? No 12/25/2023 In the last 12 months, how many places have you lived? 1 12/25/2023 In the last 12 months, was t here a time when you did not have a steady place to sleep or slept in a care home (including now)? No 12/25/2023 Housing Stability Vital Sign Answer Marcelino e Recorded In the last 12 months, was t here a time when you were not able to pay the mortgage or rent on time? No 11/05/2024 In the past 12 months, how m any times have you moved where you were living? 0 11/05/2024 At any time in the past 12 m [facility], were you homeless or living in a care home (including now)? No 11/05/2024 Food Insecurity Answer Date Recorded Within the past 12 months, y ou worried that your food would run out before you got the money to buy more. 1 11/05/2024 Within the past 12 months, t he food you bought just didn't last and you didn't have money to get more. 1 11/05/2024 Interpersonal Safety Domain Source: IP Abuse Scr eening Answer Date Recorded Physical abuse Denies 02/12/2025 Verbal abuse Denies 02/12/2025 Emotional abuse Denies 02/12/2025 Financial abuse Denies 02/12/2025 Sexual abuse Denies 02/12/2025 Comments No Sex and Gender Information Value Date Recorded Sex Assigned at Female 03/16/2021 1:40 PM EDT Legal Sex Female 10:18 AM EST Gender Identity Female 03/16/2021 1:40 PM EDT Sexual Orientation Straight 03/16/2021 1: 40 PM EDT Last Filed Vital Signs Vital Sign Reading Time Taken Comments Blood Pressure 135/86 02/12/2025 7:05 PM EDT Pulse 104 02/12/2025 7:05 PM EDT Temperature 36.7 C (98.1 F) 02/12/2025 7:05 PM EDT Respiratory Rate 16 02/12/2025 10:13 PM EDT Oxygen Saturation 97% 02/12/2025 7:05 PM EDT Inhaled Oxygen Concentration - - Weight 112 kg (247 lb) 02/12/2025 8:00 PM EDT Height 172.7 cm (5' 8 ) 11/05/2024 8:57 AM EST Body Mass Index 37.56 11/05/2024 8:57 AM EST Plan of Treatment Upcoming Encounters Date Type Department Care Team (Late st Contact Info) Description 06/25/2025 8:[address] [facility] Nuclear Medicine [address] [place], [place] [id number] media/ resched w pt/ allergic to eggs 06/25/2025 10:[address] [facility] Nuclear Medicine [address] [place], [place] [id number] media/ resched w pt/ allergic to eggs 06/25/2025 12:[address] [facility] Nuclear Medicine [address] [place], [place] [id number] media/ resched w pt/ allergic to eggs Health Maintenance Due Date Last Done Comments Diabetic foot exam 2004 Depression Screen 2006 Diabetic retinal exam 2012 Pneumococcal 0-49 years Vaccine (1 of 2 - PCV) 2013 COVID-19 Vaccine ( season) 2024 03/21/2022, 08/13/2021, 07/18/2021 Diabetic Alb to Cr ratio (uACR) test 04/21/2025 04/21/2024 Flu vaccine (#1) 04/23/2025 10/06/2020 A1C test (Diabetic or Prediabetic) 09/30/2025 09/30/2024, 04/21/2024, 11/21/2022, Additional history exists Lipids 09/30/2025 09/30/2024, 03/26/2017 GFR test (Diabetes, CKD 3-4, OR last GFR 15-59) 02/12/2026 02/12/2025, 02/09/2025, 02/05/2025, Additional history exists DTaP/Tdap/Td vaccine (9 - Td or Tdap) 05/24/2030 05/24/2020, 10/21/2017, 07/09/2011, Additional history exists Polio vaccine Completed 06/29/1999, 01/1996, 08/01/1995, Additional history exists Varicella vaccine Completed 06/29/1999, 01/26/1996 Hepatitis B vaccine Completed 07/28/2001, 04/29/1995, 1994, Additional history exists Meningococcal (ACWY) vaccine Completed 07/09/2011 HIV screen Completed 11/23/2019, 04/24, 09/28/2015 (Previously completed) Hepatitis C screen Completed 11/23/2019, 05/13/2017 Pap smear Discontinued 02/14/2021, 02/2017, 09/28/2015, Additional history exists HPV vaccine (No Doses Required) Completed Hepatitis A vaccine Aged Out No longe r eligible based on patient's age to complete this topic Hib vaccine Aged Out No longer eligi ble based on patient's age to complete this topic Meningococcal B vaccine Aged Out No l onger eligible based on patient's age to complete this topic Procedures Procedure Name Priority Date/Time Associated Diagnosis Comments BASIC METABOLIC PANEL Stat [facility] Label print 02/12/2025 8:06 PM EDT LIPID PANEL Routine 09/30/2024 8:22 AM EST HEMOGLOBIN A1C Routine 09/30/2024 8:22 AM EST MICROALBUMIN, UR Routine 04/21/2024 1:19 PM EDT COLLATERAL SPECIALIST CYTOLOGY Routine 02/14/2021 10:30 AM EDT HIV, EXTERNAL RESULT Routine 11/23/2019 HEPATITIS C ANTIBODY, EXTERNAL RESULT Routine 11/23/2019 from Last 3 Months or Most Recently Relevant to Health Maintenance Results * (ABNORMAL) BMP (02/12/2025 8:06 PM EDT) Sodium 138 136 - 145 mmol/L 02/12/2025 8:06 PM EDT [facility] Potassium 4.1 3.7 - 5.3 mmol/L 02/12/2025 8:06 PM EDT [facility] Chloride 104 98 - 107 mmol/L 02/12/2025 8:06 PM EDT [facility] CO2 22 20 - 31 mmol/L 02/12/2025 8:06 PM EDT [facility] Anion Gap 12 9 - 16 mmol/L 02/12/2025 8:06 PM EDT [facility] Glucose 259(H) 74 - 99 mg/dL 02/12/2025 8:06 PM EDT [facility] BUN 11 6 - 20 mg/dL 02/12/2025 8:06 PM EDT [facility] Creatinine 0.7 0.6 - 0.9 mg/dL 02/12/2025 8:06 PM EDT [facility] Est, Glom Filt Rate >90 >60 mL/min/1. 73m2 02/12/2025 8:06 PM EDT [facility] Comment: These results are not intended for [...] following therapy that affects renal tubular secretion. Calcium 9.5 8.6 - 10.4 mg/dL 02/12/2025 8:06 PM EDT [facility] Blood BLOOD SPECIMEN / Unknown 02/12/2025 8:06 PM EDT 02/12/2025 8:11 PM EDT us Cami Gardner DO CHEMISTRY ORDERABLES Final R esult [facility] [address] [place] [address], [place] [phone] * (ABNORMAL) Hemoglobin A1C (09/30/2024 8:22 AM EST) Hemoglobin A1C 8.0(H) 4.0 - 6.0 % 09/30/2024 8:22 AM EST [facility] Estimated Avg Glucose 183 mg/dL 09/30/2024 8:22 AM EST [facility] Comment: The ADA and AACC recommend providing the estimated average glucose result to permit better patient understanding of their HBA1c result. 09/30/2024 8:22 AM EST 09/30/2024 8:23 AM EST us Jewell Sheffield EXTRACORPOREAL TECHNICIAN - TECHNICAL DIRECTOR CHEMISTRY ORDERABLES F inal Result [facility] [address] [place] [address], [place] [phone] [address] [place] [address], [place] [phone] * (ABNORMAL) Lipid Panel (09/30/2024 8:22 AM EST) Cholesterol, Total 233(H) 0 - 199 mg/dL 09/30/2024 8:22 AM [facility] Comment: Cholesterol Guidelines: <200 Desirable 200-240 Borderline >240 Undesirable HDL 40(L) >40 mg/dL 09/30/2024 8:22 AM [facility] Comment: HDL Guidelines: <40 Undesirable 40-59 Borderline >59 Desirable LDL Cholesterol 132(H) 0 - 100 mg/dL 09/30/2024 8:22 AM [facility] Comment: LDL Guidelines: <100 Desirable 100-129 Near to/above Desirable 130-159 Borderline >159 Undesirable Direct (measured) LDL and calculated LDL are not interchangeable tests. Chol/HDL Ratio 5.8 09/30/2024 8:22 AM [facility] Triglycerides 307(H) <150 mg/dL 09/30/2024 8:22 AM [facility] Comment: Triglyceride Guidelines: <150 Desirable 150-199 Borderline 200-499 High >499 Very high Based on AHA Guidelines for fasting triglyceride, June 2012. VLDL 61(H) 1 - 30 mg/dL 09/30/2024 8:22 AM [facility] 09/30/2024 8:22 AM EST 09/30/2024 8:23 AM EST Jewell Sheffield EXTRACORPOREAL TECHNICIAN - TECHNICAL DIRECTOR CHEMISTRY ORDERABLES F inal Result Performing Organization Address [facility] Co de Phone Number [facility] [address] [place] [address], [place] [phone] [place] [facility] [address] [place] [address], [place] [phone] * Microalbumin, Ur (04/21/2024 1:19 PM EDT) Albumin Urine <12 0 - 20 mg/L 04/21/2024 1:19 PM EDT [facility] Creatinine, Ur 98.5 28.0 - 217.0 mg/dL 04/21/2024 1:19 PM EDT [facility] Microalb/Vascular Technologist Sonographer. Ratio Can not be calculated 0.0 - 25.0 mcg/mg creat 04/21/2024 1:19 PM EDT [facility] 04/21/2024 1:19 PM EDT 04/21/2024 1:20 PM EDT Yossi Golden MD URINE ORDERABLES Final R esult Performing Organization Address [facility] Co de Phone Number [facility] [address] [place] [address], [place] [phone] [place] [address], [place] [phone] * COLLATERAL SPECIALIST Cytology (02/14/2021 10:30 AM EDT) Cytology Report INTERPRETATION Cervical material, (ThinPrep vial, Imaging-assisted review): Specimen Adequacy: Satisfactory for evaluation. - Endocervical/trans formation zone component present. Descriptive Diagnosis: Negative for intraepithelial lesion or malignancy. Rubber Splicer: SELENA RUANO(ASCP) Electronically Signed Out selena/02/17/2021 Source: 1: Cervical material, (ThinPrep vial, Imaging-assisted review) Clinical History Oophorectomy: 06/2010 left Z01.419 Routine stem shaper exam without abnormal findings High risk HPV DNA testing is requested if the diagnosis is abnormal GYNECOLOGIC CYTOLOGY REPORT Patient Name: GAEL RUBY. [facility] Rec: [id number] Path Number: [id number] [facility] CONSULTING PATHOLOGISTS [facility] ANATOMIC PATHOLOGY [address] [place] [phone] [facility] 02/14/2021 10:3 0 AM EDT 02/16/2021 10:30 AM EDT Maryam Figueredo DO PATHOLOGY/CYTOLOGY OR DERABLES Final Result [facility] [address] [phone] [phone] * Hepatitis C Antibody, External Result (11/23/2019) Hepatitis C Antibody, External Result non reactive EXTERNAL LAB BLOOD SPECIMEN / Unknown Narrative Resulting Agency Comment Labs verified by Macy Casas RN and Kael Haas RN Historical Provider IMMUNOLOGY ORDERABLES Fin al Result Performing Organization Address City/[facility]/ZIP Co de Phone Number EXTERNAL LAB * HIV, External Result (11/23/2019) HIV, External Result non reactive EXTERNAL LAB Narrative Resulting Agency Comment Labs verified by Macy Casas RN and Kael Haas RN Historical Provider IMMUNOLOGY ORDERABLES Fin al Result EXTERNAL LAB from Last 3 Months or Most Recently Relevant to Health Maintenance Insurance [address] [id number] Advance Directives * Full Code (Latest Code Status on File) Date Activated Date Inactivated Comments 11/05/2024 2:35 AM 11/06/2024 2:26 PM * Full Code Date Activated Date Inactivated Comments 10/20/2024 3:33 PM 10/21/2024 1:42 PM * Full Code Date Activated Date Inactivated Comments 07/07/2024 2:47 PM 07/08/2024 3:37 PM * Full Code Date Activated Date Inactivated Comments 12/24/2023 11:50 PM 12/25/2023 1:35 PM * Full Code Date Activated Date Inactivated Comments 07/29/2023 8:38 PM 07/30/2023 6:38 PM Healthcare Agents on File Name Relationship Healthcare Agent Relationship Communication En Ruby Spouse Primary Decision Maker Lorraine Silva Other Secondary Decision Maker Care Teams Catering And Events Manager Relationship Specialty Start Date End Date Yossi Goledn MD [address] [place] [phone] PCP - General Family Medicine 09/28/18
--- OUTSIDE RECORDS SUMMARY | 2025-05-25 19:58 | XMS_ITS | Encounter Summary ---
Author Organization [facility] Address [address] [place] [address] Care Team Providers Care Chrome Polisher Name Role Phone Yossi Golden MD Primary Care Provider [phone] Yossi Golden MD Unavailable Encounter Details Date Type Department Care Team (Late st Contact Info) Description 05/14/2024 Orders Only [facility] [address] [place] [address] Yossi Golden MD [address] [place] [address] Social History Tobacco Use Types Packs/Day Years [...] often do you attend chur ch or zoroastrianism services? Patient declined 04/28/2024 Do you belong to any clubs o r organizations such as druze groups, unions, fraternal or athletic groups, or [...] medical care, and heating? Somewhat hard 04/28/2024 [facility] Occupat ional Health - Occupational [...] were you homeless or living in a [place] (including now)? No 04/28/2024 Comments Unknown Sex [...] Procedure Name Priority Date/Time Associated Diagnosis Comments DIABETES EYE EXAM Routine 05/14/2024 12:11 PM EDT documented in this encounter Results * Diabetes Eye Exam (05/14/2024 12:11 PM EDT) Yossi Golden MD HEALTH MAINTENANCE Final Result documented in this encounter Visit Diagnoses Not on filedocumented in this encounter Additional Health Concerns Active Problems Noted Date Diagnosed Date Patient on antidepressant monitoring plan 2023 Baseline PHQ-9 01/20/2024 documented as of this encounter Care Teams Chrome Polisher Relationship Specialty Start Date End Date Yossi Golden MD PCP - General Family Medicine 03/20/23 Yossi Golden MD [address] [place] [address] PCP - [facility] 09/23/24 documented as of this encounter
--- OUTSIDE RECORDS SUMMARY | 2025-05-25 19:58 | XMS_ITS | Encounter Summary ---
Author Organization [facility] Address [address] [place] [address] Care Team Providers Care Cotton Picker Name Role Phone Aly [place] MD Unavailable [phone] Source Comments In the event this information is protected by the Federal Confidentiality of Alcohol and Drug AbusePatient Records regulations: The Federal rules restrict any use of the information to criminally investigate or prosecute any alcohol or drug abuse patient.[facility] Encounter Details Date Type Department Care Team (Late st Contact Info) Description 01/08/2025 GI Preprocedure Call [facility] [place] [address] August Sánchez, [place] [address] Social History Tobacco Use Types Packs/Day Years [...] is lower risk 7 10/17/2024 Data from: https://www.neighborhoodatlas.medicine.[facility].edu/. Last address used for calculation [address] 10/17/2024 Comments Unknown Sex and Gender Information Value Date Recorded Sex Assigned at Not on file Legal Sex Female 10:32 AM EST Gender Identity Not on file Sexual Orientation Not on file documented as of this encounter Plan of Treatment Not on file documented as of this encounter Visit Diagnoses Not on filedocumented in this encounter Care Teams Cotton Picker Relationship Specialty Start Date End Date Aly [place] MD [address] [place] [id number] Referring Internal Medicine 09/15/24 documented as of this encounter
--- OUTSIDE RECORDS SUMMARY | 2025-05-25 19:58 | XMS_ITS | Encounter Summary ---
Author Organization [facility] Address [address] [facility] [place] [address] Care Team Providers Care Perfect Binder Setter Name Role Phone Yossi Golden MD Primary Care Provider [phone] Yossi Golden MD Unavailable Encounter Details Date Type Department Care Team (Late st Contact Info) Description 06/24/2024 Orders Only [facility] [address] [place] [address] Yossi Golden MD [address] [place] [phone] Social History Tobacco Use Types Packs/Day Years [...] often do you attend chur ch or advent services? Patient declined 04/28/2024 Do you belong to any clubs o r organizations such as episcopal groups, unions, fraternal or athletic groups, or [...] medical care, and heating? Somewhat hard 04/28/2024 [facility] of Occupat ional Health - Occupational Stress [...] any time in the past [address] [facility], were you homeless or living in a [facility] (including now)? No 04/28/2024 Comments Unknown Sex [...] HEMOGLOBIN A1C Routine 06/23/2024 1:30 PM EDT documented in this encounter Results * Hemoglobin A1c (06/23/2024 1:30 PM EDT) Blood Venous blood specimen / Unknown Yossi Golden MD LAB BLOOD ORDERABLES Final Resul t documented in this encounter Visit Diagnoses Not on filedocumented in this encounter Additional Health Concerns Active Problems Noted Date Diagnosed Date Patient on antidepressant monitoring plan 2023 Baseline PHQ-9 01/20/2024 documented as of this encounter Care Teams Perfect Binder Setter Relationship Specialty Start Date End Date Yossi Golden MD PCP - General Family Medicine 03/20/23 Yossi Golden MD [address] [place] [address] PCP - [facility] 09/23/24 documented as of this encounter
--- OUTSIDE RECORDS SUMMARY | 2025-05-25 19:58 | XMS_ITS | Encounter Summary ---
Author Organization [facility] Address [address] [place] [address] Care Team Providers Care Geospatial Intelligence Analyst Name Role Phone Yossi Golden MD Primary Care Provider [phone] Yossi Golden MD Unavailable Encounter Details Date Type Department Care Team (Late st Contact Info) Description 01/31/2024 Orders Only [facility] [address] [place] [address] Yossi Golden MD [address] [place] [address] Social History Tobacco Use Types Packs/Day Years [...] Name Priority Date/Time Associated Diagnosis Comments CT ANGIO CHEST W CONT(INCL WO) Routine 01/31/2024 10:49 AM EDT documented in this encounter Results * CT ANGIO CHEST W CONT(INCL WO) (01/31/2024 10:49 AM EDT) Anatomical Region Laterality Modality Radiographic Christina ging Yossi Golden MD IMG XR PROCEDURES Final Result documented in this encounter Visit Diagnoses Not on filedocumented in this encounter Additional Health Concerns Active Problems Noted Date Diagnosed Date Patient on antidepressant monitoring plan 2023 Baseline PHQ-9 01/20/2024 documented as of this encounter Care Teams Geospatial Intelligence Analyst Relationship Specialty Start Date End Date Yossi Golden MD PCP - General Family Medicine 03/20/23 Yossi Golden MD [address] [place] [address] PCP - [facility] 09/23/24 documented as of this encounter
--- OUTSIDE RECORDS SUMMARY | 2025-05-25 19:58 | XMS_ITS | Encounter Summary ---
Author Organization [facility] Address [address] [place] [address] Care Team Providers Care Cooker Meal Name Role Phone Aly Beverly MD Unavailable [phone] Source Comments In the event this information is protected by the Federal Confidentiality of Alcohol and Drug AbusePatient Records regulations: The Federal rules restrict any use of the information to criminally investigate or prosecute any alcohol or drug abuse patient.[facility] Encounter Details Date Type Department Care Team (Late st Contact Info) Description 02/09/2025 Get Medical Advice Gastroenterology [facility] [address] [phone] Ortiz Lackey DO [facility] [address] [place] [phone] Ongoing Pain and Difficulty Advancing Diet Social History Tobacco Use Types Packs/Day Years [...] is lower risk 7 10/17/2024 Data from: https://www.neighborhoodatlas.medicine.[facility].edu/. Last address used for calculation [address] 10/17/2024 Comments Unknown Sex and Gender Information Value Date Recorded Sex Assigned at Not on file Legal Sex Female 10:32 AM EST Gender Identity Not on file Sexual Orientation Not on file documented as of this encounter Miscellaneous Notes * Telephone Encounter - Dixie Grimaldo RN - 02/10/2025 10:30 AM EDT I forwarded your response about the haldol. She has a visit with Dr. Sánchez this Saturday. documented in this encounter Plan of Treatment Not on file documented as of this encounter Visit Diagnoses Not on filedocumented in this encounter Care Teams Cooker Meal Relationship Specialty Start Date End Date Aly Beverly MD [address] [place] [address] Referring Internal Medicine 09/15/24 documented as of this encounter
--- OUTSIDE RECORDS SUMMARY | 2025-05-25 19:58 | XMS_ITS | Encounter Summary ---
Author Organization [facility] Address [address] [place] [address] Care Team Providers Care Occupational Work Experience Teacher Name Role Phone Aly Beverly MD Unavailable [phone] Source Comments In the event this information is protected by the Federal Confidentiality of Alcohol and Drug AbusePatient Records regulations: The Federal rules restrict any use of the information to criminally investigate or prosecute any alcohol or drug abuse patient.[facility] Encounter Details Date Type Department Care Team (Late st Contact Info) Description 09/29/2024 Patient Msg [facility]astroenterology [facility] [address] [place] [address] Provider, [facility] EGG Test Instructions Social History Tobacco Use Types Packs/Day Years [...] on filedocumented in this encounter Care Teams Occupational Work Experience Teacher Relationship Specialty Start Date End Date Aly Beverly MD [address] [place] [address] AVE [facility] [address] [place] [address] Referring Internal Medicine 09/15/24 documented as of this encounter
--- OUTSIDE RECORDS SUMMARY | 2025-05-25 19:58 | XMS_ITS | Clinical Summary ---
Author Organization [facility] Address [address] [place] [address] Care Team Providers Care Baling Machine Operator Name Role Phone Aly Beverly MD Unavailable [phone] Allergies Active Allergy Reactions Criticality Noted Date Comments Amoxicillin Rash Low 02/26/2016 hives Egg GI Upset 12/02/2024 Ketorolac Itching,Shortness of Breath High 01/23/2013 Kiwi (Actinidia Chinensis) Itching 06/03/2023 Latex Itching 02/27/2016 Pruritis Meperidine Itching,Shortness of Breath High 02/26/2016 UNKNOWN REACTION Penicillins Rash Low 02/27/2016 hives Phenazopyridine Mental Status Change,Other: See Comments Low 02/27/2016 Medications prochlorperazine (COMPAZINE) 5 mg tablet Take 5 mg by mouth. 09/30/19 25 Active polyethylene glycol 3350 (MIRALAX ORAL) Take 17 g by mouth. 08/13/20 24 Active ondansetron orally disintegrating (ZOFRAN ODT) 4 mg disintegrating tablet 4 mg. 09/30/19 25 Active LANTUS SOLOSTAR U-100 INSULIN 100 unit/mL (3 mL) Inject 25 Units subcutaneously daily at bedtime. Taking 30 units at night 07/09/20 24 Active JARDIANCE 10 mg tablet Take 10 mg by mouth. 06/23/20 24 Active PROZAC 40 mg capsule Take 40 mg by mouth. 06/08/20 24 Active glipiZIDE (GLUCOTROL) 10 mg tablet Take 20 mg by mouth. Active atorvastatin (LIPITOR) 40 mg tablet Take 40 mg by mouth. 10/08/19 25 Active metoclopramide HCl (GIMOTI) 15 mg/spray nasal sprayIndications:D iabetic gastroparesis (HCC) Use 1 [place] in the nose four times daily. 9.8 mL 5 12/03/19 25 Active promethazine (PHENERGAN) 25 mg suppository 25 mg by RECTAL route. 06/01/[address] (PROTONIX) 40 mg tabletIndications: Diabetic gastroparesis associated with type 2 diabetes mellitus (HCC),Gastroesopha geal reflux disease without esophagitis Take 1 tablet by mouth two times a day. 60 tablet 5 02/13/20 25 Active sucralfate (CARAFATE) 1 gram tabletIndications: Diabetic gastroparesis associated with type 2 diabetes mellitus (HCC),Gastroesopha geal reflux disease without esophagitis Take 1 tablet by mouth two times a day. 60 tablet 2 02/13/20 25 Active nortriptyline (PAMELOR) 10 mg capsuleIndications :Chronic generalized abdominal pain,Gastroparesis ,Poorly controlled type 2 diabetes mellitus with neuropathy ([facility]) Trial Rx: take 1 tab PO qhs. 30 capsule 5 02/18/20 25 Active Active Problems Problem Noted Date Diagnosed Date Mild intermittent asthma without complication Assessment & Plan (12/24/2024 11:18 AM EDT): Assessment: Stable on current PRN RX, last used rescue inhaler, over 3 months ago - No recent exacerbations - On examination today, breathing easy, lungs CTA Essential hypertension 12/23/2024 Assessment & Plan (12/24/2024 11:43 AM EDT): Assessment: -Follows with No primary care provider on file. -Current RX: NONE -BP today: 147/98 Last 5 Encounter BP Readings: Date: BP: 12/02/2024 128/87 10/16/2024 123/68 Factor V Leiden 12/23/2024 Assessment & Plan (12/24/2024 11:44 AM EDT): Assessment: Noted per outside records No Anticoagulation See hypercoagulable state below History of pulmonary embolism 12/23/2024 Assessment & Plan (12/24/2024 11:45 AM EDT): Assessment: Noted per outside records - No current AC - Factor V Leiden - See hypercoagulable state above Chronic pancreatitis 11/05/2024 Assessment & Plan (12/24/2024 11:18 AM EDT): Assessment: Per records review Dyslipidemia 10/08/2024 Assessment & Plan (12/23/2024 8:14 AM EDT): Assessment: managing with Atorvastatin (Lipitor) Nonalcoholic fatty liver 07/09/2024 Assessment & Plan (12/23/2024 8:12 AM EDT): Assessment: follows with provider at home Alkaline Phosphatase 95 10/16/2024 Bilirubin, Total 0.5 10/16/2024 AST 31 10/16/2024 ALT 36 10/16/2024 Steatosis of liver 06/01/2024 Diabetic gastroparesis assoc iated with type 2 diabetes mellitus 04/29/2024 Assessment & Plan (12/24/2024 11:43 AM EDT): Assessment: HPI Gastroesophageal reflux disease 01/08/2024 Assessment & Plan (12/23/2024 8:12 AM EDT): Assessment: Managing with Pantoprazole (Protonix), Metoclopramide, sucralfate Type 2 diabetes mellitus 12/25/2023 Assessment & Plan (12/24/2024 11:48 AM EDT): Assessment: Follows with Superintendent Pier or PCP No primary care provider on file. - Fair control -Current medications: Glipizide Jardiance, lantus -BS checks at home range about 196-200 -Last A1c Hemoglobin A1C (%) Date Value 12/02/2024 7.9 ) DDD (degenerative disc disease), lumbar 07/29/20 23 Hypercoagulable state 08/03/2020 Assessment & Plan (12/24/2024 11:45 AM EDT): Assessment: Per outside records, Factor V Leiden, not on AC - Patient is uncertain if heterozygous -vs- homozygous - Developed bilat PEs 2019 after - Work up revealed Factor V - Completed AC for the PE's for about 3-6 months, then it was d/c'd - Significant family history of thrombosis - father, pat grandfather Mild concentric left ventricular hypertrophy (LV H) 04/04/2020 Assessment & Plan (12/23/2024 8:11 AM EDT): Assessment: Per outside records review Echo 2019 in [place] completed for tachycardia: Summary Global left ventricular systolic function appears [...] of tachycardia was identified from this study. Obesity with body mass index 30 or greater 03/25 Assessment & Plan (12/24/2024 11:45 AM EDT): Assessment: BMI 37 Encounters Date Type Department Care Team Description 04/23/2025 Telephone Colorectal Surgery [facility] [address] [phone] Ortiz Lackey DO Medication Preauthorization (PA for Gimoti renewal) 03/23/2025 Get Medical Advice General Surgery [facility] [address] [place] [address] August Sánchez DO Fax number from Last 3 Months Family History Medical History Relation Comments Venous Thromboembolism Father DVTs in t he leg factor v Father possible (not te sted) Factor 5 Leiden Mother possible (not te sted) Blood Clots Paternal Grandfather This was fa nirali Anesthesia Problems No Family History Bleeding disorder No Family History Relation Status Comments Father Mother Paternal Grandfather Social History Tobacco Use Types Packs/Day Years Used Date Smoking Tobacco: Every Day Cigarettes Smokeless Tobacco: Never Tobacco Cessation:Ready to Q uit: Not Asked; Counseling Given: Not Answered Comments:1/2 ppd Alcohol Use Standard Drinks/Week Comments Never 0 (1 standard drink = 0.6 oz pur e alcohol) Area Deprivation Index Answer Date Mahesh rded National Score (1-100), lower number is lower [facility] 78 10/17/2024 State Score (1-10), lower number is lower risk 7 10/17/2024 Data from: https://www.neighborhoodatlas.medicine.[facility].edu/. Last address used for calculation [address] 10/17/2024 Comments No Sex and Gender Information Value Date Recorded Sex Assigned at Not on file Legal Sex Female 10:32 AM EST Gender Identity Not on file Sexual Orientation Not on file Last Filed Vital Signs Vital Sign Reading Time Taken Comments Blood Pressure 119/85 02/17/2025 1:29 PM EDT Pulse 82 02/17/2025 1:29 PM EDT Temperature 36.4 C (97.5 F) 01/13/2025 6:20 AM EDT Respiratory Rate 16 01/13/2025 9:04 AM EDT Oxygen Saturation 96% 01/13/2025 9:04 AM EDT Inhaled Oxygen Concentration - - Weight 110.7 kg (244 lb 0.8 oz) 025 10:55 AM EDT Height 172.7 cm (5' 8 ) 12/24/2024 10:5 5 AM EDT Body Mass Index 37.11 12/24/2024 10:55 AM EDT Plan of Treatment Health Maintenance Due Date Last Done Comments Diabetic Foot Exam 2004 Dilated Retinal Exam 2004 Urine Albumin:Creatinine Ratio 2004 Annual PCP Team Chronic Dise ase Visit 2012 Anxiety Screening 2012 Depression Screening 2012 HIV Screening 2012 Hepatitis C Screening 2012 Pneumococcal Vaccine (1 of 2 - PCV) 2013 Cervical Cancer Screening 2015 HPV Vaccine (1 - 3-dose SCDM series) 2021 Influenza Vaccine (#1) 2025 HbA1C 06/04/2025 12/02/2024, 01/0 04/2025, 09/30/2024, Additional history exists LDL Cholesterol 09/30/2025 09/30/2024 DTaP,Tdap,Td Vaccine (4 - Td or Tdap) 05/24/2030 05/24/2020, 10/21/2017, 07/09/2011 Hepatitis B Vaccine Completed 07/28/2001, 04/29/1995, 1994, Additional history exists Procedures Procedure Name Priority Date/Time Associated Diagnosis Comments HEMOGLOBIN A1C Routine 12/02/2024 2:28 PM EDT Gastroparesis from Last 3 Months or Most Recently Relevant to Health Maintenance Results * (ABNORMAL) HEMOGLOBIN A1C (12/02/2024 2:28 PM EDT) Hemoglobin A1C 7.9(H) 4.3 - 5.6 % 12/02/2024 8:09 PM EDT [facility] Comment:[place] Diabetes As sociation guidelines indicate that patients with HgbA1c in the range 5.7-6.4% are at increased risk for development of diabetes, and intervention by lifestyle modification may be beneficial. HgbA1c greater or equal to 6.5% is considered diagnostic of diabetes. Estimated Average Glucose 180 mg/dL 12/02/2024 8:09 PM EDT [facility] Comment:eAG: (Estimated aver age glucose) is a calculated value from HgbA1c and is risk control field representative of the average blood glucose level in the last 2-3 month period. Blood BLOOD SPECIMEN / Unknown Venipuncture / Unknown 12/02/2024 2:28 PM EDT 12/02/2024 2:31 PM EDT Ortiz Lackey DO LABORATORY Final Result [facility] [address] [place] [address], from Last 3 Months or Most Recently Relevant to Health Maintenance Insurance MEDICAID Care Teams Baling Machine Operator Relationship Specialty Start Date End Date Aly Beverly MD [address] [place] [address] Referring Internal Medicine 09/15/24
--- OUTSIDE RECORDS SUMMARY | 2025-05-25 19:58 | XMS_ITS | Encounter Summary ---
Author Organization [facility] Address [address] [place] [address] Care Team Providers Care Sequins Spooler Name Role Phone Aly Beverly MD Unavailable [phone] Source Comments In the event this information is protected by the Federal Confidentiality of Alcohol and Drug AbusePatient Records regulations: The Federal rules restrict any use of the information to criminally investigate or prosecute any alcohol or drug abuse patient.[facility] Reason for Visit * Reason Comments Medication Preauthorization PA for Gimot i renewal Encounter Details Date Type Department Care Team (Late st Contact Info) Description 04/23/2025 Telephone Colorectal Surgery [facility] [address] [phone] Ortiz Lackey DO [facility] [address] [place] [address] Medication Preauthorization (PA for Gimoti renewal) Social History Tobacco Use Types Packs/Day Years [...] is lower risk 7 10/17/2024 Data from: https://www.neighborhoodatlas.[facility]/. Last address used for calculation [address] 10/17/2024 Comments No Sex and Gender Information Value Date Recorded Sex Assigned at Not on file Legal Sex Female 10:32 AM EST Gender Identity Not on file Sexual Orientation Not on file documented as of this encounter Miscellaneous Notes * Telephone Encounter - Fany Mcnally RN - 05/20/2025 9:53 AM EDT Fax received from [facility] with DENIAL of appeal for Gimoti. Denial appeal letter scanned into patient's chart. Case# [id number] ID# [id number] Called [place] Medicaid/[facility] at [phone] for Peer to Peer. Spoke with Lyndsey, pharmacist, and will not re approve because patient has already used for the 8 weeks and without any 2 published articles of use past 8 weeks, she cannot approve again. Will not take references, must be articles and have to be resubmitted in a new PA. Spoke with patient and aware of denial from above. Patient was taking oral Reglan and she states it did help but the Gimoti worked better. Patient aware of unable to get Gimoti approved. Will be willing to try the oral Reglan again if that is the option for her. Dr Lackey: Please advise as to what you would like her to take since unable to get Gimoti re approved. * Telephone Encounter - Fany Mcnally RN - 05/06/2025 11:35 AM EDT Received another DENIAL for Gimoti renewal on [facility] with Kelly [id number], . Spoke with [employer] on denial and appeal letter written and faxed to [place] [employer] with supporting documents to try and get re approval for Gimot. Faxed to Appeals at [place] [employer] at [phone]. Fax verification received. Awaiting response (paperwork is in pending cases file) * Telephone Encounter - Fany Mcnally RN - 05/05/2025 9:38 AM EDT Fax received with DENIAL for Gimoti. (Denial scanned into patient's chart) PA for Gimoti resubmitted on [facility] with new information because this was approved previously. Awaiting response [place] Medicaid ID# [id number] Rx BIN [id number] Rx PCN [id number] Patient has tried oral Reglan in the past and with gastroparesis, diabetes and nausea/vomiting oralReglan was not effective. * Telephone Encounter - Dixie Grimaldo RN - 04/23/2025 4:04 PM EDT Denial received via fax Scanned into chart * Telephone Encounter - Dixie Grimaldo RN - 04/23/2025 8:51 AM EDT Prior Authorization initiated thru [employer] /Kelly Code: [id number] Awaiting response Insurance: [employer] Medicaid ID: [id number] RxBIN: [id number] RxPCN:[id number] RxGroup: Tried and failed Patient has been being treated with Gimoti/Metoclopramide Nasal [place] since 12/02/2024 and it worksbest for her plan of care. Spoke with patient (identified by two identifiers), tried/failed/ineffective: Dulcolax/Bisacodyl, OTC, 09/23/2024-current Miralax/Polyethylene Glycol 08/13/2024-current Colace/Docusate Sodium, OTC, 04/23/2025-current Reglan/Metoclopramide 10 mg tablet 05/20/2024-12/15/2024 documented in this encounter Plan of Treatment Not on file documented as of this encounter Visit Diagnoses Not on filedocumented in this encounter Care Teams Sequins Spooler Relationship Specialty Start Date End Date Aly Beverly MD [address] [address] Referring Internal Medicine 09/15/24 documented as of this encounter
--- OUTSIDE RECORDS SUMMARY | 2025-05-25 19:58 | XMS_ITS | Encounter Summary ---
Author Organization [facility] Address [address] [place] [address] Care Team Providers Care Freight Adjuster Name Role Phone Aly Beverly MD [facility] [phone] Source Comments In the event this information is protected by the Federal Confidentiality of Alcohol and Drug AbusePatient Records regulations: The Federal rules restrict any use of the information to criminally investigate or prosecute any alcohol or drug abuse patient.[facility] Encounter Details Date Type Department Care Team (Late st Contact Info) Description 01/25/2025 Patient Msg Gastroenterology [facility] [address] [phone] Ortiz Lackey DO [facility] [address] [place] [phone] Appointment Request Social History Tobacco Use Types [...] is lower risk 7 10/17/2024 Data from: https://www.neighborhoodatlas.medicine.[facility].edu/. Last address used for calculation [address] 10/17/2024 Comments Unknown Sex and Gender Information Value Date Recorded Sex Assigned at Not on file Legal Sex Female 10:32 AM EST Gender Identity Not on file Sexual Orientation Not on file documented as of this encounter Plan of Treatment Not on file documented as of this encounter Visit Diagnoses Not on filedocumented in this encounter Care Teams Freight Adjuster Relationship Specialty Start Date End Date Aly Beverly MD [address] [place] [address] Referring Internal Medicine 09/15/24 documented as of this encounter
--- OUTSIDE RECORDS SUMMARY | 2025-05-25 19:58 | XMS_ITS | Encounter Summary ---
Author Organization [facility] Address [address] [place] [address] Care Team Providers Care Casualty Underwriter Name Role Phone Aly Beverly MD [facility] [phone] Source Comments In the event this information is protected by the Federal Confidentiality of Alcohol and Drug AbusePatient Records regulations: The Federal rules restrict any use of the information to criminally investigate or prosecute any alcohol or drug abuse patient.[facility] Encounter Details Date Type Department Care Team (Late st Contact Info) Description 12/07/2024 Patient Msg Gastroenterology [address] [phone] Phan Purdy, Research Coordinator Gastroparesis Registry Social History Tobacco Use Types Packs/Day Years Used Date Smoking Tobacco: Never Assessed Area Deprivation Index Answer Date Mahesh rded National Score (1-100), lower number is lower ri sk 78 10/17/2024 State Score (1-10), lower number is lower risk 7 10/17/2024 Data from: https://www.neighborhoodatlas.medicine.[facility].edu/. Last address used for calculation [address] [place] [address] 10/17/2024 Comments Unknown Sex and Gender Information Value Date Recorded Sex Assigned at Not on file Legal Sex Female 10:32 AM EST Gender Identity Not on file Sexual Orientation Not on file documented as of this encounter Plan of Treatment Not on file documented as of this encounter Visit Diagnoses Not on filedocumented in this encounter Care Teams Casualty Underwriter Relationship Specialty Start Date End Date Aly Beverly MD [address] [place] [address] Referring Internal Medicine 09/15/24 documented as of this encounter
--- OUTSIDE RECORDS SUMMARY | 2025-05-25 19:58 | XMS_ITS | Encounter Summary ---
Author Organization [facility] Address [address] [place] [address] Care Team Providers Care Sales Representative Cash Registers Name Role Phone Aly Beverly MD [facility] [phone] Source Comments In the event this information is protected by the Federal Confidentiality of Alcohol and Drug AbusePatient Records regulations: The Federal rules restrict any use of the information to criminally investigate or prosecute any alcohol or drug abuse patient.[facility] Encounter Details Date Type Department Care Team (Late st Contact Info) Description 01/25/2025 Patient Msg Gastroenterology [facility] [address] [phone] Ortiz Lackey DO [facility] [address] [place] [phone] Appointment Request Social History Tobacco Use Types [...] is lower risk 7 10/17/2024 Data from: https://www.neighborhoodatlas.medicine.[facility].edu/. Last address used for calculation [address] 10/17/2024 Comments Unknown Sex and Gender Information Value Date Recorded Sex Assigned at Not on file Legal Sex Female 10:32 AM EST Gender Identity Not on file Sexual Orientation Not on file documented as of this encounter Miscellaneous Notes * Telephone Encounter - Dorothea Serrano - 01/25/2025 2:54 PM EDT Patient called to try and schedule an appointment with Dr. Lackey documented in this encounter Plan of Treatment Not on file documented as of this encounter Visit Diagnoses Not on filedocumented in this encounter Care Teams Sales Representative Cash Registers Relationship Specialty Start Date End Date Aly Beverly MD [address] [place] [address] Referring Internal Medicine 09/15/24 documented as of this encounter
--- OUTSIDE RECORDS SUMMARY | 2025-05-25 19:58 | XMS_ITS | Encounter Summary ---
Author Organization [facility] Address [address] [facility] [place] [address] Care Team Providers Care Head Bookkeeper Name Role Phone Yossi Golden MD Primary Care Provider [phone] Yossi Golden MD Unavailable Encounter Details Date Type Department Care Team (Late st Contact Info) Description 06/17/2024 Orders Only [facility] [address] [place] [address] Yossi Golden MD [address] [place] [phone] Social History Tobacco Use Types Packs/Day Years [...] often do you attend chur ch or mu-ism services? Patient declined 04/28/2024 Do you belong to any clubs o r organizations such as yarsanism groups, unions, fraternal or athletic groups, or [...] medical care, and heating? Somewhat hard 04/28/2024 [facility] [place] of Occupat ional Health - Occupational Stress [...] any time in the past 12 m [facility], were you homeless or living in a fci (including now)? No 04/28/2024 Comments Unknown Sex [...] Diagnosis Comments XR CHEST 1 VIEW Routine 06/16/2024 11:17 AM EDT documented in this encounter Results * XR chest 1 view (06/16/2024 11:17 AM EDT) Anatomical Region Laterality Modality Chest Radiographic Christina ging Yossi Golden MD IMG XR PROCEDURES Final Result documented in this encounter Visit Diagnoses Not on filedocumented in this encounter Additional Health Concerns Active Problems Noted Date Diagnosed Date Patient on antidepressant monitoring plan 2023 Baseline PHQ-9 01/20/2024 documented as of this encounter Care Teams Head Bookkeeper Relationship Specialty Start Date End Date Yossi Golden MD PCP - General Family Medicine 03/20/23 Yossi Golden MD [address] [place] [address] PCP - [facility] 09/23/24 documented as of this encounter
--- OUTSIDE RECORDS SUMMARY | 2025-05-25 19:58 | XMS_ITS | Encounter Summary ---
Author Organization [facility] Address [address] [place] [address] Care Team Providers Care Fruit Thinner Machine Operator Name Role Phone Yossi Golden MD Primary Care Provider [phone] Yossi Golden MD Unavailable Encounter Details Date Type Department Care Team (Late st Contact Info) Description 12/25/2023 Orders Only [facility] [address] [place] [phone] Umberto Madrid MD [address] [phone] Social History Tobacco Use Types Packs/Day Years [...] Priority Date/Time Associated Diagnosis Comments CT ABDOMEN PELVIS W IV CONTRAST Routine 12/25/2023 11:04 AM EDT documented in this encounter Results * CT abdomen pelvis w IV contrast (12/25/2023 11:04 AM EDT) Anatomical Region Laterality Modality Body, Pelvis, Abdomen Computed T omography Umberto Madrid MD IMG CT PROCEDURES Final Res ult documented in this encounter Visit Diagnoses Not on filedocumented in this encounter Care Teams Fruit Thinner Machine Operator Relationship Specialty Start Date End Date Yossi Golden MD PCP - General Family Medicine 03/20/23 Yossi Golden MD [address] [facility] [place] [address] PCP - [facility] 09/23/24 documented as of this encounter
--- OUTSIDE RECORDS SUMMARY | 2025-05-25 19:58 | XMS_ITS | Encounter Summary ---
Author Organization [facility] Address [address] [place] [address] Care Team Providers Care Copying Machine Mechanic Name Role Phone Yossi Golden MD Primary Care Provider [phone] Yossi Golden MD Unavailable Encounter Details Date Type Department Care Team (Late st Contact Info) Description 06/10/2024 Orders Only [facility] [address] [place] [address] Chavo Squires DO Social History Tobacco Use [...] often do you attend chur ch or hinduism services? Patient declined 04/28/2024 Do you belong to any clubs o r organizations such as pentecostal groups, unions, fraternal or athletic groups, or [...] medical care, and heating? Somewhat hard 04/28/2024 [facility] of Occupat ional Health - Occupational Stress [...] any time in the past 12 m [facility], were you homeless or living in [...] Associated Diagnosis Comments MISCELLANEOUS LAB TEST Routine 06/09/2024 11:13 AM EDT MISCELLANEOUS LAB TEST Routine 06/09/2024 11:11 AM EDT documented in this encounter Results * - Miscellaneous Test (06/09/2024 11:13 AM EDT) us Kaylinn Dokken DO LAB BLOOD ORDERABLES Final Res ult * - Miscellaneous Test (06/09/2024 11:11 AM EDT) us Kaylinn Dokken DO LAB BLOOD ORDERABLES Final Res ult documented in this encounter Visit Diagnoses Not on filedocumented in this encounter Additional Health Concerns Active Problems Noted Date Diagnosed Date Patient on antidepressant monitoring plan 2023 Baseline PHQ-9 01/20/2024 documented as of this encounter Care Teams Copying Machine Mechanic Relationship Specialty Start Date End Date Yossi Golden MD PCP - General Family Medicine 03/20/23 Yossi Golden MD [address] [place] [address] PCP - [facility] 09/23/24 documented as of this encounter
--- OUTSIDE RECORDS SUMMARY | 2025-05-25 19:58 | XMS_ITS | Encounter Summary ---
Author Organization [facility] Address [address] [place] [id number] Care Team Providers Care Steam Drier Operator Name Role Phone Aly Beverly MD Unavailable [phone] Source Comments In the event this information is protected by the Federal Confidentiality of Alcohol and Drug AbusePatient Records regulations: The Federal rules restrict any use of the information to criminally investigate or prosecute any alcohol or drug abuse patient.[facility] Encounter Details Date Type Department Care Team (Late st Contact Info) Description 02/09/2025 Get Medical Advice Gastroenterology [facility] [address] [place] [address] Ortiz Lackey DO [facility] [address] [place] [phone] Update Social History Tobacco Use Types Packs/Day Years [...] is lower risk 7 10/17/2024 Data from: https://www.neighborhoodatlas.medicine.[facility].edu/. Last address used for calculation [address] 10/17/2024 Comments Unknown Sex and Gender Information Value Date Recorded Sex Assigned at Not on file Legal Sex Female 10:32 AM EST Gender Identity Not on file Sexual Orientation Not on file documented as of this encounter Plan of Treatment Not on file documented as of this encounter Visit Diagnoses Not on filedocumented in this encounter Care Teams Steam Drier Operator Relationship Specialty Start Date End Date Aly Beverly MD [address] [place] [phone] Referring Internal Medicine 09/15/24 documented as of this encounter
[2025-05-25] MEDS: LIDOCAINE HCL 1% 100 MG/10 ML MDV INJ (20:01)
--- OUTSIDE RECORDS SUMMARY | 2025-05-25 20:19 | XMS_ITS | CCD ---
Author Organization [facility] Team Providers Care Professor Criminal Justice Name Role Phone Yossi Golden Primary Care Provider YOSSI GOLDEN Primary Care Physician [phone] Chantel GREWAL, Yossi Paz Primary Care Provider CHANTEL, DR YOSSI Maldonado Primary Care Unavailable NILL ., DR GATES Attending Unavailable NILL ., DR GATES Admitting Unavailable NILL ., DR GATES Consulting Unavailable ASHLEY II, SOCO Consulting Unavailable STU, SHELBY Consulting Unavailable CHANTEL, DR YOSSI Maldonado Primary Care Unavailable CHANTEL, DR YOSSI Maldonado Consulting Unavailable CHANTEL, DR YOSSI Maldonado Attending Unavailable CHANTEL, DR YOSSI Maldonado Admitting Unavailable CHANTEL, DR YOSSI Maldonado Primary Care Unavailable ESTEPHANIE, DR DEDRA Al Admitting Unavailable ESTEPHANIE, DR DEDRA Al Consulting Unavailable ESTEPHANIE, DR DEDRA Al Attending Unavailable BRIAN LORA Consulting Unavailable Chantel GREWAL, Yossi Paz Primary Care Provider Say GREWAL, Nilda Payne Attending Unavailagel [place] PRECIPITATOR OPERATOR-CHIEF MINISTER, Katie Negron Attending Unavailable Bayron ROSA, Kaden Quintero Attending Unavailab nelson Golden MD, Yossi Paz Primary Care Unavail able Sybil Abel MD Attending Unavailable Chantel GREWAL, Yossi Paz Primary Care Unavail able Chantel GREWAL, Yossi Paz Primary Care Unavail able Tom GREWAL, Sammy Attending Unavailab nelson Golden MD, Yossi Paz Primary Care Unavail able Sammy Santos MD Attending Unavailab nelson Alejandre PA-C, Devang Florence Attending Unavail able Kaden Verma DO Referring Unavailab Levi GREWAL, Yossi Paz Primary Care Unavail able Hill ESCOBAR, Devang Florence Attending Unavail able Chantel GREWAL, Yossi Paz Primary Care Unavail able Colten GREWAL, Sybil Attending Unavailable Chantel GREWAL, Yossi Godwinony Primary Care Unavail able Chantel GREWAL, Yossi Madison Primary Care Unavail able Ann ESCOBAR, Donna Cruz Attending Unavailab nelson Golden MD, Yossi Godwinony Primary Care Unavail able Pedro ESCOBAR, Garima Liang Attending Unavaila Cameron Abel Attending Unavailable Naima Sewell Attending Unavailable Naima Sewell Admitting Unavailable Sarmini, Lu Talal Consulting Unavaila ble Sarmini, Lu Talal Consulting Unavaila ble Sarmini, Lu Talal Consulting Unavaila ble Sarmingumaro, Lu Talal Consulting Unavaila Naima Cordova Admitting Unavailable MD Aly Beverly Talal Consulting Unava ilable MD Byron Stallings Attending Unavaila Chavo Wills Attending Unavailable Aly Beverly Talal Attending Unavaila ira Golden MD, Yossi Primary Care Provider Sivakumar Beverlyhammad Talal Referring Unavaila ble Sarmini, Lu Talal Admitting Unavaila ble Lizette Beverlymad Talal Attending Unavaila Rob Wynne Attending Unavailable DO Chavo Squires Attending Unavailable Cameron Conklin Attending Unavailable Rob Leach Attending Unavailable Alphonso Sullivan Attending Unavailable Chantel GREWAL, Yossi Paz Primary Care Provider Cameron Conklin Attending Unavailable Phan Sandy Attending Unavailable Cameron Conklin Attending Unavailable Chavo Squires Attending Unavailable Aly Beverly Talal Attending Unavaila Aly Escobedo Attending Unavaila ira Sullivan Astrit H Attending Unavailable Beatriz GREEN Attending Unavailable Beatriz GREEN Admitting Unavailable Aly Beverly Talal Consulting UnavailMD Aly Rideral Consulting Unava ilable Ayl Beverly Talal Consulting Unavaila ble Sarmini, Lu Talal Consulting Unavaila ble Sarmini, Lu Talal Consulting Unavaila ble Beatriz GREEN Attending Unavailable Beatriz GREEN Admitting Unavailable MD Aly Beverlyal Consulting Unava ilable Sarmini, Lu Talal Consulting Unavaila ble Sarmini, Lu Talal Consulting Unavaila ble Phan Sandy Attending Unavailable Sarmini, Lu Talal Referring Unavaila ble Sarmini, Lu Talal Attending Unavaila ble Sarmingumaro, Lu Talal Admitting Unavaila Phan Guzman Attending Unavailable Monika Houston Primary Care Physician Monika [place] Unavailable Unavailable Cameron Conklin Attending Unavailable Du, Phan Attending Unavailable Aly Beverly Talal Attending Unavaila Aly Escobedo MD Talal Unavailable [phone] Cameron Conklin Attending Unavailable Rob Leach Attending Unavailable Cameron Conklin Attending Unavailable Du, Phan Attending Unavailable Tonny Butler Attending Unavailable NADEREMichelle, YOSSI Attending Unavailable NADERER, YOSSI Attending Unavailable NADERER, YOSSI Attending Unavailable NADEREMichelle, YOSSI Attending Unavailable NADERER, YOSSI Attending Unavailable NADERER, YOSSI Attending Unavailable Hajdari, Astrit H Attending Unavailable Hajdari, Astrit H Attending Unavailable Du, Phan Attending Unavailable Aly Beverly Attending UnavailYossi Ash MD Unavailable Aly Beverly MD Unavailable [phone] YAJAIRA LACKEY Referring Unavailable RONALDO SÁNCHEZ Attending Unavailable RONALDO SÁNCHEZ Referring Unavailable Hajdari, Astrit H Attending Unavailable Hajdari, Astrit H Attending Unavailable DO Chavo Squires Attending Unavailable Cameron Conklin Attending Unavailable YOSSI GOLDEN Primary Care UnavailMERRILL Gaona Referring Unavailable YOSSI GOLDEN Primary Care Unavailabl e YOSSI GOLDEN Primary Care Unavailabl e YOSSI GOLDEN Primary Care Unavailabl e CINTRA, IMELDA G Attending Unavailable YOSSI GOLDENONY Primary Care Unavailabl e ROD COLMENARES Attending Unavailable NADERER, YOSSI BRANDI Primary Care Unavailabl e EDWINDEDRA Admitting Unavailable EDWINDEDRA HUBBARD Attending Unavailable NADERER, YOSSI BRANDI Primary Care Unavailabl e IACOB, WILMAN Admitting Unavailable IACOB, WILMAN Attending Unavailable NADERER, YOSSI BRANDI Primary Care Unavailabl e NADERER, YOSSI BRANDI Primary Care Unavailabl e POSADNYCHEMO Attending Unavailable NADERER, YOSSI BRANDI Primary Care Unavailabl e ROD COLMENARES Attending Unavailable NADERER, YOSSI BRANDI Primary Care Unavailabl e NADERER, YOSSI GODWINONY Referring Unavailabl e NADERER, YOSSI BRANDI Primary Care Unavailabl e NADERER, YOSSI GODWINONY Referring Unavailabl e NADERER, YOSSI BRANDI Primary Care Unavailabl e NADERER, YOSSI PAZ Referring Unavailabl e NADERER, YOSSI BRANDI Primary Care Unavailabl e NADERER, YOSSI PAZ Referring Unavailabl e NADERER, YOSSI BRANDI Primary Care Unavailabl e [facility], [facility] Care Unavailabl e NADERER, [facility] Primary Care Unavailabl e SEAMONS, GLORIA Consulting Unavailable SEAMONS, GLORIA Attending Unavailable NADERER, [facility] Primary Care Unavailabl e CINTRA, IMELDA G Attending Unavailable NADERER, YOSSI BRANDI Primary Care Unavailabl e NADERER, YOSSI BRANDI Primary Care Unavailabl e DEDRA PINEDA Admitting Unavailable DEDRA PINEDA Attending Unavailable YOLY STRANGE Attending Unavailable NADERER, YOSSI BRANDI Primary Care Unavailabl e MARCO ANTONIO GERMAIN Attending Unavailable NADERER, YOSSI BRANDI Primary Care Unavailabl e Chantel GREWAL, Yossi Godwinony Primary Care Unavail able Indio Toscano MD Attending Unavailable Chantel GREWAL, Yossi Godwinony Primary Care Unavail able Dorcas GREWAL, Indio Henning Attending Unavailable Chantel GREWAL, Yossi Brandi Primary Care Unavail able Soco Mondragon II, DO Attending Unava ilable Kellee HULL, Charli Tellez Attending U navailsolo Golden MD, Yossi Godwinony Primary Care Unavail able Yossi Golden MD Referring Unavail able Nettie HULL, Merrill Ritter Attending Unavail able Yossi Golden MD Brandi Primary Care Unavail able Chantel GREWAL, Yossi Paz Referring Unavail able Dagkanwal PRECIPITATOR OPERATOR-CHIEF MINISTER, Merrill Ritter Consulting Unavail able Dagkanwal PRECIPITATOR OPERATOR-CHIEF MINISTER, Merrill Ritter Attending Unavail able Chantel GREWAL, Yossi Madison Primary Care Unavail able Dagkanwal PRECIPITATOR OPERATOR-CHIEF MINISTER, Merrill Ritter Attending Unavail able Chantel GREWAL, Yossi Madison Primary Care Unavail able Dagani PRECIPITATOR OPERATOR-CHIEF MINISTER, Merrill Ritter Attending Unavail able Chantel GREWAL, Yossi Madison Primary Care Unavail able Chantel GREWAL, Yossi Madison Primary Care Unavail able Hill ESCOBAR, Devang Florence Attending Unavail able Tamela ROSA, Nehal Negron Attending Unavailerica Golden MD, Yossi Madison Primary Care Unavail able Chantel GREWAL, [facility] Primary Care Unavail able Pedro ESCOBAR, Garima Liang Attending Unavaila ira Golden MD, [facility] Care Unavail able Gloria Avitia DO Attending Unava tu Golden MD, Yossi Madison Primary Care Unavail able Say GREWAL, Nilda Payne Attending Unavailabl e LACKEYYAJAIRA Gomez Referring Unavailable LACKEY, YAJAIRA Lopez Attending Unavailable LACKEY, YAJAIRA Lopez Referring Unavailable GRUBRONALDO SANDOVAL Attending Unavailable GRUBRONALDO SANDOVAL Referring Unavailable SOPHIEJON Attending Unavailable GRUBRONALDO SANDOVAL Attending Unavailable LACKEY, YAJAIRA Lopez Referring Unavailable JAMESBEST RODRIGEZ Attending Unavailable LACKEY, YAJAIRA Lopez Referring Unavailable Allergies Allergy Classification Reported Allergen(s) Allergy Type Date of Onset Reaction(s) Facility Latex (1 source) Latex Substance Allergy 02-27-[address] [facility] NSAIDs (1 source) Ketorolac Drug Allergy 01-25-20 13 Shortness Of Breath, Itching [facility] Opioid Agonists (2 sources) Meperidine Drug Allergy 02-27-20 16 Shortness Of Breath, Itching [facility] Penicillin V (1 source) Penicillin V Drug Allergy 02-27-[address] [facility] Penicillins (antibiotic) (1 source) Amoxicillin Drug Allergy 02-27-20 [address] [facility] Phenazopyridine (1 source) Phenazopyridine Drug Allergy 02-27-[address] [facility] (20 sources) Amoxicillin; Translations: [amoxicillin] Drug Allergy 02-26-20 16 Nausea And Vomiting, Eruption of skin (disorder), Nausea and vomiting (disorder), [place] (20 sources) Ketorolac Drug Allergy 01-25-20 13 Shortness Of Breath, Itching, Other (See Comments), Other [place] (20 sources) Latex; Translations: [Latex] Propensity to adverse reactions to drug 02-27-20 16 Itching, Itching (finding) [place] (20 sources) Meperidine; Translations: [meperidine] Drug Allergy 02-26-20 16 Shortness Of Breath, Itching, Itching (finding), Dyspnea (finding) [place] (20 sources) Penicillin V Drug Allergy 02-27-20 16 [place] (20 sources) Phenazopyridine Drug Allergy 02-27-20 16 Anxiety [place] (20 sources) Eggs Or Egg-Derived Products Propensity to adverse reactions to drug 02-27-20 16 Other (See Comments) [place] (20 sources) traMADol; Translations: [tramadol] Drug Allergy 02-17-20 20 Unknown [place] (20 sources) Penicillin G Drug Allergy 10-01-19 23 Other (See Comments), Other [facility] (20 sources) Egg; Translations: [Eggs] Food allergy Abdominal pain (finding) [facility] (20 sources) Ketorolac; Translations: [ketorolac] Drug Allergy 01-24-20 13 Itching (finding), Dyspnea (finding), Itching, Shortness of Breath [facility] (1 source) Amoxicillin Drug Allergy [facility] (3 sources) Ketorolac; Translations: [Toradol] Drug Allergy [facility] (1 source) Latex Drug allergy (disorder) [facility] (1 source) Meperidine Drug Allergy [facility] (4 sources) Penicillin; Translations: [penicillin] Drug Allergy [facility] (20 sources) Phenazopyridine; Translations: [Pyridium] Drug Allergy [facility] (1 source) Egg/Poultry Drug allergy (disorder) [facility] (20 sources) kiwi fruit allergenic extract Drug Allergy 06-03-20 23 Itching [facility] (20 sources) Egg-Derived Products Propensity to adverse reactions to drug 02-27-20 16 Other (See Comments), Other [facility] (2 sources) egg-containing compound; Translations: [egg-containing compound] Propensity to adverse reactions to food (disorder) [facility] Repository (20 sources) Kiwi; Translations: [Kiwi] Propensity to adverse reactions (disorder) [facility] Repository (20 sources) Phenazopyridine; Translations: [phenazopyridine] Drug Allergy 02-27-20 16 Anxiety, Mental Status Change, Other: See Comments [facility] (20 sources) Kiwi fruit Propensity to adverse reactions 06-03-20 23 Itching [facility] (20 sources) Latex Propensity to adverse reactions 02-27-20 16 Itching [facility] (1 source) Ketorolac; Translations: [Toradol] Drug Allergy [facility] (20 sources) Penicillins; Translations: [Penicillin] Allergy to substance (disorder) 02-27-20 [address] [facility] (1 source) Phenazopyridine; Translations: [Pyridium] Drug Allergy [facility] [employer] (18 sources) egg extract; Translations: [EGG] Drug Allergy 12-03-19 25 GI [facility] (2 sources) KIWI (ACTINIDIA CHINENSIS); Translations: [KIWI (ACTINIDIA CHINENSIS)] Propensity to adverse reactions to drug (disorder) 06-03-20 23 [facility] Other [place] Repository Medications Current Medications Medication Drug Class(es) Dates Sig (Normalized) Sig (Original) Acetaminophen (20 sources) Start: 11-05-2024 acetaminophen (TYLENOL) tablet 650 mg Start: 07-07-2024 acetaminophen (TYLENOL) tablet 650 mg Start: 05-24-2024 [facility] six hours as needed for pain acetaminophen 325 mg Tab 650 mg = 2 tab(s), Oral, q6hr, PRN Pain, Refills(s) 0 Start Date: 05/24/24 Status: Ordered Start: 10-14-2023 End: 10-14-2023 acetaminophen (TYLENOL) tabl et 1,000 mg Start: 11-12-2022 End: 11-12-2022 acetaminophen (TYLENOL) tabl et 650 mg Start: 03-20-2021 End: 03-20-2021 acetaminophen [...] Taking at Discharge) acetaminophen 300 mg / codeine phosphate 30 mg oral tablet (1 source) Opioid Agonist Start: 11-12-2022 End: 11-17-2022 acetaminophen-codeine (TYLENOL/CODEINE #3) 300-30 MG per tablet Indications: Post-op pain Take 1 tablet by mouth every 4 hours as needed for Pain for up to 5 days. Intended supply: 5 days. Take lowest dose possible to manage pain Max Daily Amount: 6 tablets 20 tablet 0 11/12/2022 11/17/2022 Active acetaminophen 325 mg / HYDROcodone bitartrate 5 mg oral tablet (20 sources) Opioid Agonist Start: 07-06-2024 End: 07-13-2024 take 1 tablet by mouth four times daily as needed for pain HYDROcodone-acetaminophen ([place]) 5-325 MG tablet Indications: Diabetic gastroparesis associated with type 2 diabetes mellitus (CMS/HCC) Take 1 tablet by mouth 4 (four) times a day as needed for severe pain for up to 7 days 28 tablet 07/06/2024 07/13/2024 Active Start: 06-08-2024 End: 06-15-2024 take 1 tablet by mouth four times daily as needed for pain HYDROcodone-acetaminophen ([place]midon) 5-325 MG tablet Indications: Diabetic gastroparesis associated with type 2 diabetes mellitus (CMS/HCC) Take 1 tablet by mouth 4 (four) times a day as needed for severe pain for up to 7 days 28 tablet 06/08/2024 06/15/2024 Active Start: 05-24-2024 End: 05-27-2024 take 1 tablet by mouth twice daily Am[place]on 325 mg-5 mg oral tablet 1 tab(s), Oral, BID Pain for 3 day(s), 6 tab(s), Refill(s) 0, [facility] [id number], 173, cm, 05/22/24 21:52:00 EDT, Height/Length Dosing, 112.2, kg, 05/22/24 21:52:00 EDT, Weight Dosing Start Date: 05/24/24 Stop Date: 05/27/24 Status: Ordered Start: 11-24-2023 hydrocodone-ac etaminophen (NORCO) tablet 5-325 mg (STARTER [...] ORCO) 5-325 MG per tablet 1 tablet [id number] 200 actuat albuter ol 0.09 mg/actuat metered dose inhaler (20 sources) beta2-Adrenergic Agonist Start: 11-05-2024 Start: 10-20-2024 Start: 07-07-2024 Start: 06-02-2021 albuterol (PRO VENTIL) nebulizer solution 2.5 mg Start: 06-02-2021 take 2 puff(s) by in halation every six hours as needed for wheezing albuterol sulfate HFA (PROVENTIL HFA) 108 (90 Base) MCG/ACT inhaler Inhale 2 puffs into the lungs every 6 hours as needed for Wheezing 18 g 3 06/02/2021 Active take 1 puff(s) by in halation every six hours as needed albuterol sulfate HFA 90 mcg/actuation aerosol inhaler inhale 1 puff (90 mcg) by inhalation route every 6 hours as needed Albuterol (Eqv-ProAir HFA) 90 mcg/inh inhalation aerosol (20 sources) Start: 05-23-2024 take 2 puff(s) by inhalation every four hours Albuterol (Eqv-ProAir HFA) 90 mcg/inh inhalation aerosol 2 puff(s), Inhalation, q4hr Wheezing, Refill(s) 0 Start Date: 05/23/24 Status: Ordered Repeat number: 1 Start: 05-23-2024 take 2 puff(s) by in halation every four hours Albuterol (Eqv-ProAir HFA) 90 mcg/inh inhalation aerosol 2 puff(s), Inhalation, q4hr Wheezing, Refill(s) 0 Start Date: 05/23/24 Status: Ordered apixaban 5 mg oral tablet (12 sources) [...] Sat06/14/20 at 0000, For 7 days ANTICOAGULANT atorvastatin 40 mg oral tablet (20 sources) HMG-CoA Reductase Inhibitor Start: 10-08-2024 atorvastatin (LIPITOR) 40 mg tablet Take 40 mg by mouth. 10/08/2024 Active azithromycin 250 mg oral tablet (9 sources) Macrolide Antimicrobial Start: 06-15-2024 End: 07-09-2024 take 2 tablets by mouth once daily azithromycin (Zithromax) 250 MG tablet Indications: Upper respiratory tract infection, unspecified type 2 PO once a day on day #1, then 1 PO once a day on days 2-5 6 tablet 06/15/2024 07/09/2024 Discontinued Start: 10-21-2023 take 1 tablet by erlinda th once daily azithromycin (ZITHROMAX) 250 MG tablet Take 1 tablet by mouth daily 0 10/21/2023 Active Start: 05-23-2020 End: 05-24-2020 azithromycin (ZITHROMAX) tab let 500 mg Start: 01-10-2020 End: 01-10-2020 azithromycin (ZITHROMAX) tab let 1,000 mg Baloxavir Marboxil (XOFLUZA, 80 MG DOSE,) 1 x 80 MG tablet (1 source) Start: 10-14-2023 End: 10-14-2023 take 1 tablet by mouth once Baloxavir Marboxil (XOFLUZA, 80 MG DOSE,) 1 x 80 MG tablet Take 1 tablet by mouth once for 1 dose 1 tablet 0 10/14/2023 10/14/2023 Active black cohosh extract 160 mg oral capsule (6 sources) Black Cohosh 160 MG CAPS Take 120 mg by mouth 0 Active calcium chloride 0.0014 meq/ml / potassium chloride 0.004 meq/ml / sodium chloride 0.103 meq/ml / sodium lactate 0.028 meq/ml injectable solution (4 sources) Start: 11-12-2022 stacey conti rs IV soln infusion Start: 03-20-2021 lactated [...] 11-28-2020 clindamycin (CLEOCIN) capsul e 300 mg Continuous Glucose Barrel Line Operator (Dexcom G7 Barrel Line Operator) device (20 sources) Start: 09-24-2024 Continuous Glu cose Barrel Line Operator (Dexcom G7 Barrel Line Operator) device Indications: Type 2 diabetes mellitus with hyperglycemia, with long-term current use of insulin ([facility]) 1 each continuously 1 each 09/24/2024 Active Start: 04-09-2024 Continuous Glu cose Barrel Line Operator (Dexcom G7 Barrel Line Operator) device Indications: Type 2 diabetes mellitus with hyperglycemia, with long-term current use of insulin (CMS/HCC) 1 each continuously 1 each 04/09/2024 Active Continuous Glucose Sensor (Dexcom G7 Sensor) misc (20 sources) Start: 04-09-2024 Continuous Glu cose Sensor (Dexcom G7 Sensor) misc Indications: Type 2 diabetes mellitus with hyperglycemia, with long-term current use of insulin ([facility]) 1 each continuously 2 each 11 04/09/2024 Active cyclobenzaprine hydrochloride 10 mg oral tablet (5 [...] mg/ml oral solution (1 source) Phenothiazine, Uncompetitive Y-bhwvcf-W-aspartate Receptor Antagonist, Sigma-1 Agonist Start: 06-02-2021 End: 06-09-2021 promethazine-dextromethorpha n (PROMETHAZINE-DM) 6.25-15 MG/5ML syrup Take 5 mLs by mouth 4 times daily as needed for Cough 150 mL 0 06/02/2021 06/09/2021 Active dicyclomine hydrochloride 10 mg oral capsule (20 sources) Anticholinergic Start: 10-06-2024 End: 10-15-2024 take 1 capsul e by mouth four times daily as needed for pain Bentyl 10 mg Cap 10 mg = 1 cap(s), Oral, QID, PRN abdominal pain, # 28 cap(s), Refills(s) 0, [id number], 173, cm, 10/06/24 13:15:00 EST, Height/Length Dosing, 113.6, kg, 10/06/24 13:15:00 EST, Weight Dosing Start Date: 10/06/24 Status: Ordered Quantity: 28.0 Unit: cap(s) Repeat number: 1 Start: 08-07-2024 End: 08-14-2024 take 1 tablet by mouth three times daily dicyclomine 20 mg Tab 20 mg = 1 tab(s), Oral, TID, X 7 day(s), # 21 tab(s), Refills(s) 0, Pharmacy: [facility] [id number], 172, cm, 08/07/24 9:14:00 EST, Height/Length Dosing, 111.2, kg, 08/07/24 9:14:00 EST, Weight Dosing Start Date: 08/07/24 Stop Date: 08/14/24 Status: Ordered Start: 07-07-2024 End: 07-07-2024 inject 1 dose by intramuscular injection once 20 mg, IntraMUSCular, ONCE, 1 dose, On Sat07/07/24 at 0900 Start: 11-24-20[address] [facility] three times daily as needed for pain dicyclomine (BENTYL) 20 MG tablet Take 1 tablet by mouth 3 times daily as needed (abdominal pain) 20 tablet 0 11/24/2023 Active Start: 11-23-2023 dicyclomine (B ENTYL) injection 20 mg Start: 06-03-2023 End: 07-09-2024 take 10 mg by mouth four times daily before mealtime 10 mg, Oral, 4 TIMES DAILY BEFORE MEALS & NIGHTLY, First dose on Sat07/07/24 at 1700, Until Discontinued Start: 02-18-2023 End: 02-18-2023 dicyclomine (BENTYL) injecti on 20 mg Start: 03-11-2022 End: 03-11-2022 dicyclomine (BENTYL) injecti on 20 mg Start: 08-27-2020 take 1 capsule by [facility] three times daily as needed for pain dicyclomine (BENTYL) 10 MG capsule Take 1 capsule by mouth 3 times daily as needed (abdominal pain) 30 capsule 3 08/27/2020 Active docusate sodium 50 mg / sennosides, correction 8.6 mg oral tablet (1 source) Start: 05-22-2020 sennosides-docusate sodium (SENOKOT-S) 8.6-50 MG tablet 1 tablet 0.5 ml dulaglutide 3 mg/ml auto-injector (20 sources) GLP-1 Receptor Agonist Start: 11-30-2022 inject 1.5 mg by subcutaneous injection every week Trulicity Pen 1.5 mg/0.5 mL subcutaneous solution 1.5 mg, SubCutaneous, qWeek, Refills(s) 0 Start Date: 11/30/22 Status: Ordered Start: 08-27-2022 End: 07-07-2024 Dulaglutide (TRULICITY) 0.75 MG/0.5ML SOPN Inject 0.75 mg into the skin once a week Saturday 4 Adjustable Dose Pre-filled Pen Syringe 08/27/2022 07/07/2024 Discontinued Trulicity 1.5 mg /0.5 mL subcutaneous pen injector inject 0.5 milliliter (1.5 mg) by subcutaneous route every 7 days Dulaglutide (TAD LICITY) 0.75 MG/0.5ML SOPN Inject 0.75 mg into the skin once a week Saturday 0 Active empagliflozin 10 mg oral tablet (20 sources) Sodium-Glucose Cotransporter 2 Inhibitor Start: 06-23-2024 JARDIANCE 10 mg tablet Take 10 mg by mouth. 06/23/2024 Active FLUoxetine 40 mg oral capsule (20 sources) Serotonin Reuptake Inhibitor Start: 07-07-2024 take 10 mg by mouth once daily 10 mg, Oral, Nightly, First dose on Emiliana 11/05/24 at 0300, Until Discontinued Start: 06-08-2024 PROZAC 40 mg c apsule Take 40 mg by mouth. 06/08/2024 Active glucagon (rdna) 1 mg injecti on (2 sources) Antihypoglycemic Agent Start: 10-20-2024 Start: 07-07-2024 1000 ml glucose 100 mg/ml in jection (6 sources) Start: 10-20-2024 Start: 10-20-2024 dextrose bolus 10% 125 mL Start: 10-20-2024 Start: 07-07-2024 Start: 07-07-2024 dextrose bolus 10% 125 mL Start: 07-07-2024 hydrOXYzine pamoate 25 mg oral capsule (20 sources) Antihistamine Start: 06-23-2024 End: 10-22-2024 take 1 capsule by mouth four times daily as needed for anxiety hydrOXYzine pamoate (Vistaril) 25 MG capsule Indications: Generalized anxiety disorder (CMS/HCC) Take 1 capsule (25 mg) by mouth 4 (four) times a day as needed for anxiety 60 capsule 3 10/22/2024 Active Start: 01-12-2022 take 1 tablet by erlinda th every six hours hydrOXYzine HCl (ATARAX) 25 MG tablet take 1 tablet by mouth every 6 hours if needed 01/12/2022 Active Start: 05-23-2020 hydrOXYzine (V ISTARIL) capsule 50 mg hydrOXYzine pamo ate (Vistaril) 25 MG capsule Take 25 mg by mouth Active take 1 tablet by erlinda th three times daily hydroxyzine HCl 25 mg tablet take 1 tablet (25 mg) by oral route 3 times per day End: 12-14-2019 take 1 tablet by mouth every eight hours as needed hydrOXYzine (ATARAX) 25 MG tablet Take 25 mg by mouth every 8 hours as needed for Itching 0 12/14/2019 Discontinued (LIST CLEANUP) 12 hr hyoscyamine sulfate 0.375 mg extended release oral tablet (15 sources) Start: 05-23-2024 take 1 tablet by mouth at bedtime hyoscyamine 0.375 mg ER Tab 0.375 mg = 1 tab(s), Oral, Bedtime Start Date: 05/23/24 Status: Ordered Start: 02-05-2024 hyoscyamine (L EVSIN/SL) sublingual tablet [...] for Cramping 60 tablet 3 12/25/2023 Active hyoscyamine 0.12 [address] 1 tablet under tongue by translingual route As needed Ibgard 90 mg oral delayed release capsule (11 sources) Start: 08-10-2024 take 2 capsules by mouth twice daily as needed for pain Ibgard 90 mg oral delayed release capsule 180 mg = 2 cap(s), Oral, BID, PRN abdominal pain/cramps, # 12 cap(s), Refills(s) 0, samples given to patient (Rx) Start Date: 08/10/24 Status: Ordered Quantity: 12.0 Unit: cap(s) Repeat number: 1 Start: 08-10-2024 take 2 capsules by m outh twice daily as needed for pain Ibgard 90 mg oral delayed release capsule 180 mg = 2 cap(s), Oral, BID, PRN abdominal pain/cramps, # 12 cap(s), Refills(s) 0, samples given to patient (Rx) Start Date: 08/10/24 Status: Ordered Ibuprofen (20 sources) Nonsteroidal Anti-inflammatory Drug Start: 06-01-2024 ibuprofen Refills (s) 0 Start Date: 06/01/24 Status: Ordered Repeat number: 1 Start: 06-01-2024 ibuprofen Refi lls(s) 0 Start Date: 06/01/24 Status: Ordered Start: 10-14-2023 End: 10-14-2023 ibuprofen (ADVIL;MOTRIN) tab let 800 mg Start: 01-04-2022 ibuprofen (ADV IL;MOTRIN) tablet 400 mg Start: 05-23-2020 End: 09-17-2020 take 1 tablet by mouth every eight hours as needed for pain ibuprofen (ADVIL;MOTRIN) 800 MG tablet Take 1 tablet by mouth every 8 hours as needed for Pain 60 tablet 3 05/24/2020 09/17/2020 Discontinued lansinoh lanolin ointment (1 source) Start: 05-22-2020 lansinoh lanol in ointment lidocaine 0.04 mg/mg medicated patch (19 sources) Antiarrhythmic, Amide Local Anesthetic Start: 10-20-2024 1 patch, Topical, Administer over 12 Hours, DAILY, First dose on Sat10/20/24 at 1600, Substituted for Lidocaine 5% Patch. The research and development researcher's recommendations for the number of patches that can be applied within a 24-hour period varies from 1 to 4 times daily and the duration of application varies from 8 to 24 hours; refer to the research and development researcher's labeling for product-specific recommendations. Start: 07-07-2024 Start: 03-09-2024 apply 1 dose transde rmal route once daily lidocaine (LIDODERM) 5 % Place 1 patch onto the skin daily 12 hours on, 12 hours off. 30 patch 03/09/2024 Active Start: 11-28-2020 End: 11-28-2020 lidocaine PF 1 % injection 2 0 mL Start: 09-25-2020 lidocaine 4 % external patch 1 patch linaclotide 0.072 mg oral capsule (9 sources) Guanylate Cyclase-C Agonist Start: 08-14-2024 End: 11-12-2024 take 1 capsule by mouth every other day Linzess 72 mcg oral capsule 72 mcg = 1 cap(s), Oral, Every other day, X 90 day(s), # 45 cap(s), Refills(s) 0, Pharmacy: [facility] [id number], 172, cm, 08/13/24 9:03:00 EST, Height/Length Dosing, 112, kg, 08/13/24 9:03:00 EST, Weight Dosing Start Date: 08/14/24 Stop Date: 11/12/24 Status: Ordered 24 hr metFORMIN hydrochloride 500 mg extended [...] mouth. 1 kit 0 09/26/2020 10/02/2020 Active metoclopramide 15 mg/actuat nasal spray (20 sources) Dopamine-2 Receptor Antagonist Start: 12-02-2024 End: 12-02-2024 metoclopramide HCl (GIMOTI) 15 mg/spray nasal spray Indications: Diabetic gastroparesis (HCC) Use 1 [place] in the nose four times daily. 9.8 mL 5 12/02/2024 Active Start: 07-07-2024 10 mg, IntraVE Nous, ONCE, 1 dose, On Sat07/07/24 at 1115, IV Push: Max 10 mg over 1-2 minutes. Start: 06-15-2024 End: 07-09-2024 Metoclopramide HCl 10 MG tab let dispersible Indications: Diabetic gastroparesis associated with type 2 diabetes mellitus (CMS/HCC) Take 10 mg by mouth in the morning and 10 mg at noon and 10 mg in the evening and 10 mg before bedtime. 120 tablet 2 06/15/2024 07/09/2024 Discontinued Start: 06-09-2024 End: 06-08-2024 metoclopramide (Reglan) 10 M G tablet Indications: Diabetic gastroparesis associated with type 2 diabetes mellitus (CMS/HCC) Take 1 tablet (10 mg) by mouth in the morning and 1 tablet (10 mg) at noon and 1 tablet (10 mg) in the evening and 1 tablet (10 mg) before bedtime. 120 tablet 11 06/22/2024 Active Start: 06-09-2024 End: 06-08-2024 take 1 tablet by mouth every six hours Reglan 10 mg Tab 10 mg = 1 tab(s), Oral, q6hr, # 12 tab(s), Refills(s) 0, Pharmacy: [facility] [id number], 173, cm, 06/09/24 2:42:00 EDT, Height/Length Dosing, 115.4, kg, 06/09/24 2:42:00 EDT, Weight Dosing Start Date: 06/09/24 Status: Ordered Start: 05-20-2024 End: 12-15-2024 take 1 tablet by mouth four times daily metoclopramide (REGLAN) 10 MG tablet Take 1 tablet by mouth 4 times daily for 10 days 40 tablet 05/20/2024 Active Start: 02-05-2024 metoclopramide (REGLAN) injection 10 mg Start: 01-04-2024 metoclopramide (REGLAN) injection 10 mg Start: 01-04-2024 End: 02-05-2024 take 1 tablet by mouth four times daily metoclopramide (REGLAN) 10 MG tablet Take 1 tablet by mouth 4 times daily 30 tablet 0 02/05/2024 Active Start: 03-20-2021 End: 03-20-2021 10 mg, Intravenous, ONCE PRN , Nausea, Starting on 03/20/21 at 1333, For 1 dose Secondary antiemetic therapy. PACU only Start: 05-22-2020 End: 05-22-2020 metoclopramide (REGLAN) inje ction 10 mg take 1 tablet by erlinda th once daily metoclopramide 10 mg tablet take 1 tablet (10 mg) by oral route once daily miSOPROStol 0.1 mg oral tablet (1 source) Prostaglandin E1 Analog Start: 05-22-2020 miSOPROStol (CYTOTEC) tablet 800 mcg Multiple Vitamins-Minerals (THERAPEUTIC MULTIVITAMIN-MINERAL S) tablet (6 sources) take 1 tablet by mouth once daily Multiple Vitamins-Minerals (THERAPEUTIC MULTIVITAMIN-MINE RALS) tablet Take 1 tablet by mouth daily 0 Active 1 ml naloxone hydrochloride 0.4 mg/ml injection (1 source) Opioid Antagonist Start: 05-22-2020 naloxone (NARCAN) injection 0.4 mg {14 (24 HR nicotine 0.292 MG/HR Transdermal System) / 14 (24 HR nicotine 0.583 MG/HR Transdermal System) / 28 (24 HR nicotine 0.875 MG/HR Transdermal System) } Pack (13 sources) Cholinergic Nicotinic Agonist Start: 05-24-2024 End: 06-21-2024 nicotine 21 mg-14 mg-7 mg transdermal film, extended release 1 patch(es), TransDermal, Noon for 28 day(s), 1 kit(s), Refill(s) 0, [facility] [id number], 173, cm, 05/22/24 21:52:00 EDT, Height/Length Dosing, 112.2, kg, 05/22/24 21:52:00 EDT, Weight Dosing Start Date: 05/24/24 Stop Date: 06/21/24 Status: Ordered Start: 06-26-2020 apply 1 dose transde rmal route once daily RA NICOTINE 21 MG/24HR APPLY 1 PATCH ONTO SKIN ONCE A DAY DIRECTED 0 06/26/2020 Active Start: 05-23-2020 nicotine (JOÃO DERM CQ) 21 MG/24HR 1 patch NIFEdipine 10 mg oral capsule (11 sources) Dihydropyridine Calcium Channel [place] Start: 04-29-2020 NIFEdipine (PROCARDIA) capsule 20 mg Start: 04-02-2020 NIFEdipine (DC OCARDIA) capsule 40 mg Start: 03-29-2020 NIFEdipine (DC OCARDIA) capsule 40 mg Start: 03-29-2020 End: 05-24-2020 take 1 capsule by mouth three times daily NIFEdipine (PROCARDIA) 10 MG capsule Take 1 capsule by mouth 3 times daily 90 capsule 1 03/29/2020 05/24/2020 Discontinued (Stop Taking at Discharge) nortriptyline 10 mg oral capsule (3 sources) Tricyclic Antidepressant Start: 02-17-2025 take 1 tablet by mouth once daily at bedtime nortriptyline (PAMELOR) 10 mg capsule Indications: Chronic generalized abdominal pain , Gastroparesis , 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 30 capsule 5 02/17/2025 Active omeprazole 40 mg delayed release oral capsule (20 sources) Proton Pump Inhibitor Start: 09-19-2022 End: 07-09-2024 take 1 capsule by mouth in the morning omeprazole (PriLOSEC) [address] capsule Indications: Gastroesophageal reflux disease without esophagitis Take 1 capsule (40 mg) by mouth in the morning and 1 capsule (40 mg) before bedtime. 60 capsule 5 04/21/2024 Active Start: 09-19-2022 take 1 capsule by mo [facility] once daily omeprazole (PRILOSEC) 40 MG delayed release capsule Take 1 capsule by mouth daily 0 09/19/2022 Active take 1 capsule by mo [facility] twice daily before mealtime omeprazole 20 mg capsule,delayed release take 1 capsule (20 mg) by oral route 2 times per day before meals for 10 days in combination with amoxicillin and clarithromycin End: 10-29-2022 take 1 tablet by mouth at bedtime OMEPRAZOLE PO Take 1 tablet by mouth in the morning and at bedtime 0 10/29/2022 Discontinued (Therapy completed) take 1 tablet by erlinda th at bedtime OMEPRAZOLE PO Take 1 tablet by mouth in the morning and at bedtime 0 Active OMEPRAZOLE PO Ta ke by mouth 0 Active ondansetron (ZOFRAN-ODT) disintegrating tablet 4 mg (2 sources) Start: 11-05-2024 ondansetron (Z OFRAN-ODT) disintegrating tablet 4 mg Start: 10-20-2024 ondansetron (Z OFRAN-ODT) disintegrating tablet 4 mg oseltamivir 75 mg oral capsule (1 source) [...] pantoprazole 40 mg delayed release oral tablet (20 sources) Proton Pump Inhibitor Start: 02-12-2025 take 1 tablet by mouth twice daily pantoprazole DR (PROTONIX) 40 mg tablet Indications: Diabetic gastroparesis associated with type 2 diabetes mellitus (HCC) , Gastroesophageal reflux disease without esophagitis Take 1 tablet by mouth two times a day. 60 tablet 5 02/12/2025 Active Start: 08-07-2024 End: 09-06-[address] (PROTONIX) 4 0 mg tablet 40 mg. 08/07/2024 Active Start: 07-07-2024 take 20 mg by mouth once daily 20 mg, Oral, DAILY, First dose on Sat10/21/24 at 0900, Until Discontinued, Do not crush or break. Start: 05-24-2024 End: 01-14-2025 take 1 tablet by mouth twice daily pantoprazole DR (PROTONIX) 40 mg tablet Indications: Gastroparesis Take 1 tablet by mouth two times a day. Start taking medication after procedure for 4 weeks. 60 tablet 12/15/2024 Active Start: 06-14-2020 pantoprazole ( PROTONIX) tablet 40 mg Polyethylene Glycols (16 sources) Start: 08-13-2024 polyethylene g lycol 3350 (MIRALAX ORAL) Take 17 g by mouth. 08/13/2024 Active Potassium Chloride (3 sources) Start: 11-05-2024 potassium chlo ride (KLOR-CON M) extended release tablet 40 mEq Start: 10-20-2024 potassium chlo ride (KLOR-CON M) extended release tablet 40 mEq Start: 07-07-2024 potassium chlo ride (KLOR-CON M) extended release tablet 40 mEq MV-Min-Fe Fum-FA-DH A ( 1 PO) (14 sources) take 1 tablet by erlinda th once daily, then take 1 tablet by mouth MV-Min-Fe Fum-FA-DHA ( 1 PO) Take 1 tablet by mouth daily 0 Active MV-Min- Fe Fum-FA-DHA ( 1 PO) Take by mouth 0 Active MV-Min- Fe Fum-FA-DHA ( 1 PO) Take by mouth 0 Suspended vitamin 27-1 MG tablet 1 tablet (1 source) Start: 05-22-2020 vitam in 27-1 MG tablet 1 tablet promethazine hydrochloride 12.5 mg rectal suppository (20 sources) Phenothiazine Start: 10-06-2024 take 12.5 mg rectal route every four hours as needed for nausea promethazine 12.5 mg Supp 12.5 mg = 1 supp, Rectal, q4hr, PRN for nausea/vomiting, # 12 supp, Refills(s) 0, Pharmacy: [facility] [id number], 173, cm, 10/06/24 13:15:00 EST, Height/Length Dosing, 113.6, kg, 10/06/24 13:15:00 EST, Weight Dosing Start Date: 10/06/24 Status: Ordered Quantity: 12.0 Unit: supp Repeat number: 1 Start: 08-06-2024 End: 08-06-2024 inject 1 dose by intramuscular injection once 25 mg, IntraMUSCular, ONCE, 1 dose, On Emiliana 08/06/24 at 1100 Start: 06-01-2024 promethazine ( PHENERGAN) 25 mg suppository 25 mg by RECTAL route. 06/01/2024 Active Start: 06-01-2024 take 25 mg rectal ro chitimacha every twelve hours as needed for nausea Phenergan 25 mg Supp 25 mg = 1 supp, Rectal, q12hr, PRN Nausea/Vomiting, # 60 EA, Refills(s) 6, Pharmacy: [facility] [id number], 173, cm, 06/01/24 9:48:00 EDT, Height/Length Dosing, 111, kg, 06/01/24 9:48:00 EDT, Weight Dosing Start Date: 06/01/24 Status: Ordered Quantity: 60.0 Unit: EA Repeat number: 7 Start: 05-23-2024 take 12.5 mg rectal route every four hours as needed for nausea Phenergan 12.5 mg Supp 12.5 mg = 1 supp, Rectal, q4hr, PRN Nausea/Vomiting, If zofran is ineffective, # 6 EA, Refills(s) 0 Start Date: 05/23/24 Status: Ordered Start: 03-23-2023 End: 03-30-2023 promethazine (PHENERGAN) tab let 25 mg Start: 06-13-2020 promethazine ( PHENERGAN) [...] 0 05/24/2020 Discontinued (Stop Taking at Discharge) prucalopride 2 mg oral tablet (3 sources) Start: 08-10-2024 take 1 tablet by mouth once daily Motegrity 2 mg oral tablet 2 mg = 1 tab(s), Oral, Daily, # 30 tab(s), Refills(s) 3, Pharmacy: [facility] [id number], 172, cm, 08/10/24 10:32:00 EST, Height/Length Dosing, 112, kg, 08/10/24 10:32:00 EST, Weight Dosing Start Date: 08/10/24 Status: Ordered regular insulin, human 100 unt/ml injectable solution (2 sources) Insulin insulin regular (HUMULIN R;NOVOLIN R) 100 UNIT/ML injection Inject 6 Units into the skin 3 times daily (with meals) 6 units at breakfast, 12 units at lunchtime and 10 units a dinner verbally per patient 0 Active sennosides, correction 8.6 mg oral tablet (1 source) Start: 09-25-2020 take 1 tablet by mouth once daily 8.6 mg (1 tablet), Oral, NIGHTLY, First dose on 09/25/20 at 2100 sertraline 100 mg oral tablet (20 sources) Serotonin Reuptake Inhibitor Start: 05-04-2024 take 1 tablet by mouth once daily Zoloft 100 mg tablet 05/04/2024 take 1 tablet (100 mg) by oral route once daily Start: 04-21-2024 End: 06-08-2024 take 1 tablet by mouth once daily sertraline 100 mg Tab 100 mg = 1 tab(s), Oral, Daily Start Date: 05/23/24 Status: Ordered Start: 11-30-2022 take 1 tablet by erlinda th once daily sertraline 25 mg Tab 25 mg = 1 tab(s), Oral, Daily, Refills(s) 0 Start Date: 11/30/22 Status: Ordered Start: 11-19-2022 End: 07-07-2024 sertraline (ZOLOFT) 25 MG ta blet 2 tablets 11/19/2022 07/07/2024 Discontinued Start: 11-19-2022 take 1 tablet by erlinda th once daily sertraline (ZOLOFT) 25 MG tablet take 1 tablet by mouth once daily 0 11/19/2022 Active simethicone 80 mg chewable tablet (1 source) Start: 05-22-2020 simethicone (M YLICON) chewable tablet 80 mg sodium chloride flush 0.9 % injection 3 mL (1 source) Start: 02-09-2025 sodium chlorid e flush 0.9 % injection 3 mL sucralfate 1000 mg oral tablet (7 sources) Aluminum Complex Start: 02-12-2025 take 1 tablet by mouth twice daily sucralfate (CARAFATE) 1 gram tablet Indications: Diabetic gastroparesis associated with type 2 diabetes mellitus (HCC) , Gastroesophageal reflux disease without esophagitis Take 1 tablet by mouth two times a day. 60 tablet 2 02/12/2025 Active Start: 12-15-2024 End: 01-14-2025 take 1 tablet by mouth twice daily sucralfate (CARAFATE) 1 gram tablet Indications: Gastroparesis Take 1 tablet by mouth two times a day. Start taking medication after procedure for 4 weeks. 60 tablet 12/15/2024 01/14/2025 Active Start: 06-09-2024 End: 06-16-2024 take 1 tablet by mouth four times daily Carafate 1 gram Tab 1 gm = 1 tab(s), Oral, QID, X 7 day(s), # 28 tab(s), Refills(s) 0, Pharmacy: [facility] [id number], 173, cm, 06/09/24 2:42:00 EDT, Height/Length Dosing, 115.4, kg, 06/09/24 2:42:00 EDT, Weight Dosing Start Date: 06/09/24 Stop Date: 06/16/24 Status: Ordered tiZANidine 4 mg oral tablet (20 sources) Central alpha-2 Adrenergic Agonist Start: 01-20-2025 take 1 tablet by mouth three times daily as needed for muscle spasms tiZANidine (Zanaflex) 4 MG tablet Indications: DDD (degenerative disc disease), lumbar Take 1 tablet (4 mg) by mouth 3 (three) times a day as needed for muscle spasms 60 tablet 2 01/20/2025 Active Start: 06-01-2024 Zanaflex Oral, Refills(s) 0 Start Date: 06/01/24 Status: Ordered Start: 10-04-2021 End: 07-09-2024 take 1 tablet by mouth three times daily as needed for muscle spasms tiZANidine (Zanaflex) 4 MG tablet Indications: DDD (degenerative disc disease), lumbar Take 1 tablet (4 mg) by mouth 3 (three) times a day as needed for muscle spasms 60 tablet 2 04/29/2024 Active take 1 capsule by mo ut every eight hours as needed tizanidine 4 mg capsule take 1 capsule (4 mg) by oral route every 8 hours as needed take 1 capsule by mo uth every eight hours as needed tizanidine 2 mg capsule take 1 capsule (2 mg) by oral route every 8 hours as needed traMADol hydrochloride 50 mg oral tablet (2 sources) Opioid Agonist Start: 10-21-2024 End: 10-24-2024 take 1 tablet by mouth every six hours as needed for pain traMADol (ULTRAM) 50 MG tablet Indications: Acute pancreatitis, unspecified complication status, unspecified pancreatitis type Take 1 tablet by mouth every 6 hours as needed for Pain for up to 3 days. Max Daily Amount: 200 mg 12 tablet 10/21/2024 10/24/2024 Active traZODone hydrochloride 150 mg oral tablet (10 sources) Serotonin Reuptake Inhibitor Start: 04-27-2024 End: 07-09-2024 take 1 tablet by mouth at bedtime traZODone (Desyrel) 150 MG tablet Indications: Persistent insomnia Take 1 tablet (150 mg) by mouth at bedtime 90 tablet 3 04/27/2024 07/09/2024 Discontinued Zofran ODT 4 mg Tab-Dis (7 sources) Start: 09-30-2024 take 1 tablet by mouth every eight hours as needed for nausea Zofran ODT 4 mg Tab-Dis 4 mg = 1 tab(s), Oral, q8hr, PRN Nausea/Vomiting, # 30 tab(s), Refills(s) 0, Pharmacy: [facility] [id number], 172, cm, 09/30/24 10:54:00 EST, Height/Length Dosing, 112.8, kg, 09/30/24 10:54:00 EST, Weight Dosing Start Date: 09/30/24 Status: Ordered Quantity: 30.0 Unit: tab(s) Repeat number: 1 Start: 09-30-2024 take 1 tablet by erlinda th every eight hours as needed for nausea Zofran ODT 4 mg Tab-Dis 4 mg = 1 tab(s), Oral, q8hr, PRN Nausea/Vomiting, # 30 tab(s), Refills(s) 0, Pharmacy: [facility] [id number], 172, cm, 09/30/24 10:54:00 EST, Height/Length Dosing, 112.8, kg, 09/30/24 10:54:00 EST, Weight Dosing Start Date: 09/30/24 Status: Ordered Completed/Discontinued Medications Medication Drug Class(es) Dates Sig (Normalized) Sig (Original) acetaminophen 300 mg / butalbital 50 mg / caffeine 40 mg oral capsule (2 sources) Barbiturate, Central Nervous System Stimulant, Methylxanthine Start: 08-13-2020 End: 08-27-2020 take 1 capsule by mouth every four hours as needed for headache [id number] ffeine (FIORICET) 50-300-40 MG CAPS per capsule Take 1 capsule by mouth every 4 hours as needed for Headaches 15 capsule 0 08/13/2020 08/27/2020 Discontinued (Therapy completed) acetaminophen 325 mg / oxyCODONE hydrochloride 5 mg oral tablet (6 sources) Opioid Agonist Start: 10-20-2024 End: 10-20-2024 take 1 tablet by mouth every twenty-four hours 1 tablet, Oral, ONCE, 1 dose, On Sat10/20/24 at 1200, Maximum dose of acetaminophen is 4000 mg from all sources in 24 hours. Start: 09-30-2024 End: 10-03-2024 take 1 tablet by mouth every six hours Percocet 5 mg-325 mg oral tablet 1 tab(s), Oral, q6hr Pain 8-10 for 3 day(s), 12 tab(s), Refill(s) 0, [facility] [id number], 172, cm, 09/30/24 10:54:00 EST, Height/Length Dosing, 112.8, kg, 09/30/24 10:54:00 EST, Weight Dosing Start Date: 09/30/24 Stop Date: 10/03/24 Status: Ordered Start: 10-05-2022 End: 10-05-2022 oxyCODONE-acetaminophen (PER COCET) 5-325 MG per tablet 1 tablet Start: [...] (PERCOCET) 5-325 MG per tablet 1 tablet take 1 tablet by erlinda th every six hours as needed oxycodone-acetaminophen 5 mg-325 mg tablet take 1 tablet by oral route every 6 hours as needed albuterol 0.833 mg/ml / ipratropium bromide 0.167 mg/ml inhalant solution (20 sources) Anticholinergic, beta2-Adrenergic Agonist Start: 12-05-2018 End: 08-27-2020 take 3 mL by inhalation every four hours ipratropium-albuterol (DUONEB) 0.5-2.5 (3) MG/3ML SOLN nebulizer solution Inhale 3 mLs into the lungs every 4 hours 360 mL 0 12/05/2018 08/27/2020 Discontinued (Therapy completed) aluminum & magnesium hydroxide-simet hicone (MAALOX) 30 mL, lidocaine viscous hcl (XYLOCAINE) 5 mL (GI COCKTAIL) (2 sources) Start: 09-17-2024 End: 09-17-2024 Oral, ONCE, On Emiliana 09/17/24 at 1330, For 1 dose, Take 5 mL from lidocaine viscous 2% cup and mix with 30 mL of maalox and then administer. Start: 08-06-2024 End: 08-06-2024 Oral, ONCE, On Emiliana 08/06/24 at 1100, For 1 dose, Take 5 mL from lidocaine viscous 2% cup and mix with 30 mL of maalox and then administer. aspirin 81 mg chewable tablet (17 sources) Platelet Aggregation Inhibitor, Nonsteroidal Anti-inflammatory Drug End: 05-24-2020 take 1 tablet by mouth once daily aspirin 81 MG chewable tablet Take 81 mg by mouth daily 0 05/24/2020 Discontinued (Stop Taking at Discharge) atropine sulfate 0.025 mg / diphenoxylate hydrochloride 2.5 mg oral tablet (1 source) Anticholinergic, Cholinergic Muscarinic Antagonist, Antidiarrheal Start: 02-05-2024 End: 02-05-2024 diphenoxylate-atr opine (LOMOTIL) 2.5-0.025 MG per tablet 1 tablet [...] 03-20-2021 dimenhyDRINATE (DRAMAMINE) t ablet 50 mg 1 ml diphenhydrAMINE hydrochloride 50 mg/ml cartridge (11 sources) Histamine-1 Receptor Antagonist Start: 02-09-2025 End: 02-09-2025 25 mg, IntraVENous, ONCE, 1 dose, On Sat02/09/25 at 1900, IV Push at rate not to exceed 25 mg/min. Start: 02-05-2025 End: 02-05-2025 25 mg, IntraVENous, ONCE, 1 dose, On Sat02/05/25 at 2045, IV Push at rate not to exceed 25 mg/min. Start: 01-01-2025 End: 01-01-2025 25 mg, IntraVENous, ONCE, 1 dose, On Sat01/01/25 at 0100, IV Push at rate not to exceed 25 mg/min. Start: 11-05-2024 End: 11-05-2024 12.5 mg, IntraVENous, ONCE, 1 dose, On 11/05/24 at 1430, IV Push at rate not to exceed 25 mg/min. Start: 11-05-2024 End: 11-05-2024 25 mg, IntraVENous, ONCE, 1 dose, On Emiliana 11/05/24 at 0015 Start: 11-04-2024 End: 11-04-2024 50 mg, IntraVENous, ONCE, 1 dose, On 11/04/24 at 2200 Start: 10-20-2024 End: 10-20-2024 25 mg, IntraVENous, ONCE, 1 dose, On Sat10/20/24 at 0945, IV Push at rate not to exceed 25 mg/min. Start: 09-17-2024 End: 09-17-2024 25 mg, IntraVENous, ONCE, 1 dose, On Emiliana 09/17/24 at 1330, IV Push at rate not to exceed 25 mg/min. Start: 08-06-2024 End: 08-06-2024 take 1 dose by mouth once 25 mg, Oral, ONCE, 1 dose, O n Emiliana 08/06/24 at 1315 Start: 07-07-2024 End: 07-07-2024 25 mg, IntraVENous, ONCE, 1 dose, On Sat07/07/24 at 1015, IV Push at rate not to exceed 25 mg/min. Start: 05-22-2020 diphenhydrAMIN E (BENADRYL) injection 25 mg docusate sodium 100 mg oral capsule [...] days 20 tablet 0 07/08/2022 07/18/2022 Active 2 ml droperidol 2.5 mg/ml injection (3 sources) Dopamine-2 Receptor Antagonist Start: 02-05-2025 End: 02-05-2025 1.25 mg, IntraVENous, ONCE, 1 dose, On Sat02/05/25 at 2145 Start: 09-17-2024 End: 09-17-2024 0.625 mg, IntraVENous, ONCE, 1 dose, On Sat09/17/24 at 1430 Start: 05-26-2024 End: 05-26-2024 0.625 mg, IntraVENous, ONCE, 1 dose, On Sat05/26/24 at 1400 dulaglutide (Trulicity) 3 MG/0.5ML solution pen-injector (3 sources) Start: 04-07-2024 End: 06-08-2024 inject 3 mg by subcutaneous injection every week dulaglutide (Trulicity) 3 MG/0.5ML solution pen-injector Indications: Type 2 diabetes mellitus with hyperglycemia, with long-term current use of insulin (CMS/HCC) Inject 3 mg under the skin 1 (one) time per week 4 each 2 04/07/2024 06/08/2024 Discontinued Start: 04-07-2024 inject 3 mg by subcu taneous injection every week dulaglutide (Trulicity) 3 MG/0.5ML solution pen-injector Indications: Type 2 diabetes mellitus with hyperglycemia, with long-term current use of insulin (CMS/HCC) Inject 3 mg under the skin 1 (one) time per week 4 each 2 04/07/2024 Active 0.3 ml enoxaparin sodium 100 mg/ml prefilled syringe (3 sources) Low Molecular Weight Heparin Start: 10-20-2024 inject 30 mg by subcutaneous injection twice daily 30 mg, SubCUTAneous, 2 TIMES DAILY, First dose on Sat10/20/24 at 2100, Until Discontinued, Indication of Use: Prophylaxis-DVT/PE Start: 11-12-2022 End: 11-12-2022 enoxaparin (LOVENOX) injecti on 40 mg Start: 05-23-2020 enoxaparin (LO VENOX) injection 40 mg esomeprazole 20 mg granules for oral suspension (20 sources) Proton Pump Inhibitor End: 08-27-2020 take 20 mg by mouth once daily esomeprazole Magnesium (NEXIUM) 20 MG PACK Take 20 mg by mouth daily 0 08/27/2020 Discontinued (Therapy completed) famotidine 20 mg oral tablet (20 sources) Histamine-2 Receptor Antagonist Start: 11-05-2024 take 20 mg by mouth twice daily 20 mg, Oral, 2 TIMES DAILY, First dose on Emiliana 11/05/24 at 0900, Until Discontinued Start: 10-08-2024 End: 10-22-2024 take 1 tablet by mouth twice daily famotidine 20 mg Tab 20 mg = 1 tab(s), Oral, BID, X 14 day(s), # 28 tab(s), Refills(s) 0, Pharmacy: [facility] [id number], 173, cm, 10/08/24 17:52:00 EST, Height/Length Dosing, 113, kg, 10/08/24 17:52:00 EST, Weight Dosing Start Date: 10/08/24 Stop Date: 10/22/24 Status: Ordered Start: 05-22-2020 End: 05-22-2020 famotidine (PEPCID) injectio n 20 mg Start: 01-10-2020 End: 01-10-2020 famotidine (PEPCID) injectio n 20 mg Start: 07-29-2019 End: 12-14-2019 take 1 tablet by mouth twice daily famotidine (PEPCID) 20 MG tablet Take 1 tablet by mouth 2 times daily 60 tablet 0 07/29/2019 12/14/2019 Discontinued (LIST CLEANUP) Start: 07-28-2019 famotidine (PE PCID) injection 20 mg famotidine (Pepc id) 40 MG tablet Take by mouth Active famotidine (PEPCID) 20 mg in sodium chloride (PF) 0.9 % 10 mL injection (1 source) Start: 01-04-2024 End: 01-04-2024 famotidine (PEPCID) 20 mg in sodium chloride (PF) 0.9 % 10 mL injection 2 ml fentaNYL 0.05 mg/ml injection (6 sources) Opioid Agonist Start: 11-12-2022 25 mcg, IntraV ENous, EVERY 5 MIN PRN, 2 doses, Starting on 11/12/22 at 1204, Until Discontinued, Pain Moderate (4-6) [...] Starting on Sat03/20/21 at 1333, For 4 doses Phase I - Secondary therapy to be used after all initial severe pain medication doses have been administered. PACU only Start: 03-20-2021 25 mcg, Intrav enous, EVERY 5 MIN PRN, Pain Moderate (4-6), Starting on Sat03/20/21 at 1333, For 4 doses Phase I - Secondary therapy to be used after all initial moderate pain medication doses have been administered. PACU only Start: 07-29-2019 End: 07-29-2019 fentaNYL (SUBLIMAZE) injecti on 50 mcg Start: 07-28-2019 End: 07-28-2019 fentaNYL (SUBLIMAZE) injecti on 50 mcg gabapentin 100 mg oral capsule (4 sources) Anti-epileptic Agent take 1 capsule by mouth twice daily gabapentin 100 mg capsule take 1 capsule by oral route 2 times a day take 1 capsule by mo [facility] three times daily gabapentin (NEURONTIN) 100 MG capsule Ta ke 1 capsule by mouth 3 times daily. 0 Active 2 ml gentamicin 40 mg/ml injection (1 source) Start: 05-22-2020 End: 05-22-2020 gentamicin (GARAMYCIN) 40 MG/ML injection glipiZIDE 5 mg oral tablet (20 sources) Sulfonylurea Start: 11-05-2024 take 20 mg by mouth twice daily before mealtime 20 mg, Oral, 2 TIMES DAILY BEFORE MEALS, First dose on Emiliana 11/05/24 at 0700, Until Discontinued Start: 10-20-2024 Start: 11-30-2022 take 1 tablet by erlinda twice daily glipiZIDE 10 mg Tab 10 mg = 1 tab(s), Oral, BID, Refills(s) 0 Start Date: 11/30/22 Status: Ordered Repeat number: 1 glipiZIDE (GLUCO TROL) 10 mg tablet Take 20 mg by mouth. Active take 1 tablet by erlinda th once daily before mealtime glipizide 10 mg tablet take 1 tablet (10 mg) by oral route once daily before a meal guaiFENesin (4 sources) End: 10-29-2022 guaiFENesin (COUGH SYRUP PO) Take by mouth 0 10/29/2022 Discontinued (Therapy completed) guaiFENesin (COU GH SYRUP PO) Take by mouth 0 Active 1 ml haloperidol 5 mg/ml prefilled syringe (1 source) Typical Antipsychotic Start: 02-09-2025 End: 02-09-2025 5 mg, IntraMUSCular, ONCE, 1 dose, On Sat02/09/25 at 2015, IM route of administration preferred. Because of the risk of TdP and QT prolongation, ECG monitoring is recommended if haloperidol is given IV. 0.5 ml HYDROmorphone hydrochloride 1 mg/ml prefilled syringe (5 sources) Opioid Agonist Start: 11-05-2024 End: 11-05-2024 1 mg, IntraVENous, ONCE, 1 dose, On Sat11/05/24 at 0200 Start: 11-04-2024 End: 11-05-2024 1 mg, IntraVENous, ONCE, 1 d ose, On Sat11/05/24 at 0030 Start: 10-20-2024 End: 10-20-2024 1 mg, IntraVENous, ONCE, 1 d ose, On Sat10/20/24 at 1500 Start: 10-20-2024 End: 10-20-2024 1 mg, IntraVENous, ONCE, 1 d ose, On Sat10/20/24 at 1115 insulin glargine 100 unt/ml injectable solution (20 sources) Insulin Analog Start: 11-05-2024 inject 25 [IU] by subcutaneous injection once daily 25 Units, SubCUTAneous, NIGHTLY, First dose on Sat11/05/24 at 2100, Until Discontinued Start: 10-21-2024 insulin glargi ne (LANTUS SOLOSTAR) 100 UNIT/ML injection pen Inject 25 Units into the skin nightly 15 mL 2 10/21/2024 Active Start: 10-20-2024 Start: 07-09-2024 LANTUS SOLOSTA R U-100 INSULIN 100 unit/mL (3 mL) Inject 25 Units subcutaneously daily at bedtime. Taking 30 units at night 07/09/2024 Active Start: 07-09-2024 insulin glargi ne (Lantus SoloStar) 100 UNIT/ML pen Indications: Type 2 diabetes mellitus with hyperglycemia, with long-term current use of insulin (CMS/HCC) Inject 25 Units under the skin at bedtime 07/09/2024 Active Start: 07-08-2024 End: 10-21-2024 insulin glargine (LANTUS DENIZ OSTAR) 100 UNIT/ML injection pen Inject 30 Units into the skin nightly 15 mL 07/08/2024 10/21/2024 Discontinued Start: 05-23-2024 inject 30 [IU] by montanez bcutaneous injection once daily at bedtime Lantus 100 units/mL Injection-Insulin 30 unit(s), SubCutaneous, Once a day (at bedtime), Refills(s) 0, High blood sugar Start Date: 05/23/24 Status: Ordered Repeat number: 1 Start: 04-09-2024 End: 07-08-2024 insulin glargine (LANTUS DENIZ OSTAR) 100 UNIT/ML injection pen Inject 15 Units into the skin nightly 5 Adjustable Dose Pre-filled Pen Syringe 04/09/2024 07/08/2024 Discontinued Start: 04-07-2024 End: 07-09-2024 insulin glargine (Lantus Deniz oStar) 100 UNIT/ML pen Indications: Type 2 diabetes mellitus with hyperglycemia, with long-term current use of insulin (CMS/HCC) Inject 30 Units under the skin at bedtime 15 mL 3 04/07/2024 07/09/2024 Discontinued (Dose adjustment) insulin lispro 100 unt/ml injectable solution (1 source) Insulin Analog Start: 07-07-2024 0-4 Units, Sub CUTAneous, 4 TIMES DAILY BEFORE MEALS & NIGHTLY, First dose on Sat07/07/24 at 1700, Until Discontinued, Corrective Low Dose Algorithm Glucose: Dose: 70-179 No Insulin 180-249 1 Unit 250-299 2 Units 300-349 3 Units Over 349 4 Units and notify physician Administer as soon as possible within 60 minutes of last blood glucose check 3 ml insulin, aspart, human 100 unt/ml [...] iopamidol (ISOVUE-370) 76 % injection 75 mL (9 sources) Start: 02-09-2025 End: 02-09-2025 take 1 dose intravenously once 75 mL, IntraVENous, IMG ONCE PRN, 1 dose, Starting on Sat02/09/25 at 1911, Until Sat02/09/25 at 1938, Other Start: 11-04-2024 End: 11-04-2024 take 1 dose intravenously once 75 mL, IntraVENous, IMG ONCE PRN, 1 dose, Starting on Sat11/04/24 at 2343, Until Sat11/04/24 at 2351, Other Start: 01-30-2024 End: 01-30-2024 iopamidol (ISOVUE-370) 76 [...] days 0 11/19/2022 12/24/2022 Discontinued (Therapy completed) metroNIDAZOLE 250 mg oral tablet (2 sources) Nitroimidazole Antimicrobial Start: 05-22-2020 End: 05-24-2020 metroNIDAZOLE (FLAGYL) tablet 500 mg Start: 01-10-2020 End: 01-10-2020 metroNIDAZOLE (FLAGYL) table t 2,000 mg 1 ml morphine sulfate 4 mg/ml injection (14 sources) Opioid Agonist Start: 01-01-2025 End: 01-01-2025 take 1 dose by mouth every hour 4 mg, IntraVENous, ONCE, 1 dose, On Sat01/01/25 at 0215, If oral and IV narcotics ordered, use oral first and only use IV if oral is ineffective or cannot take oral. Do Not give oral and IV within 1 hour of each other unless specifically ordered. Start: 11-04-2024 End: 11-04-2024 4 mg, IntraVENous, ONCE, 1 d ose, On Sat11/04/24 at 2200 Start: 10-20-2024 End: 10-20-2024 4 mg, IntraVENous, ONCE, 1 d ose, On Sat10/20/24 at 1030 Start: 07-07-2024 End: 07-07-2024 4 mg, IntraVENous, ONCE, 1 d ose, On Sat07/07/24 at 1315 Start: 11-01-2022 End: 11-01-2022 morphine (PF) injection [...] morphine (PF) injection 2 mg 2 ml ondansetron 2 mg/ml injection (20 sources) Serotonin-3 Receptor Antagonist Start: 11-05-2024 End: 11-05-2024 4 mg, IntraVENous, ONCE, 1 dose, On Sat11/05/24 at 0215 Start: 10-20-2024 End: 10-20-2024 take 1 dose by mouth once 4 mg, Oral, ONCE, 1 dose, On Sat10/20/24 at 1300 Start: 10-20-2024 End: 10-20-2024 4 mg, IntraVENous, ONCE, 1 d ose, On Sat10/20/24 at 1015 Start: 09-30-2024 ondansetron or ally disintegrating (ZOFRAN ODT) 4 mg disintegrating tablet 4 mg. 09/30/2024 Active Start: 08-07-2024 End: 08-10-2024 take 1 tablet by mouth every six hours ondansetron 4 mg Dis Tab 4 mg = 1 tab(s), Oral, q6hr, X 3 day(s), # 10 tab(s), Refills(s) 0, Pharmacy: [facility] [id number], 172, cm, 08/07/24 9:14:00 EST, Height/Length Dosing, 111.2, kg, 08/07/24 9:14:00 EST, Weight Dosing Start Date: 08/07/24 Stop Date: 08/10/24 Status: Ordered Start: 07-07-2024 End: 07-07-2024 4 mg, IntraVENous, ONCE, 1 d ose, On Sat07/07/24 at 0900 Start: 06-08-2024 take 1 tablet by erlinda three times daily as needed for nausea ondansetron (ZOFRAN) 4 MG tablet Take 1 tablet by mouth 3 times daily as needed for Nausea or Vomiting tablet 06/08/2024 Active Start: 06-01-2024 take 1 tablet by erlinda th every eight hours as needed for nausea Zofran 4 mg Tab 4 mg = 1 tab(s), Oral, q8hr, PRN Nausea/Vomiting, # 60 tab(s), Refills(s) 6, Pharmacy: [facility] [id number], 173, cm, 06/01/24 9:48:00 EDT, Height/Length Dosing, 111, kg, 06/01/24 9:48:00 EDT, Weight Dosing Start Date: 06/01/24 Status: Ordered Quantity: 60.0 Unit: tab(s) Repeat number: 7 Start: 05-26-2024 End: 05-26-2024 4 mg, IntraVENous, ONCE, 1 d ose, On 05/26/24 at 1215 Start: 05-24-2024 End: 05-27-2024 take 1 tablet by mouth every six hours as needed for nausea ondansetron 4 mg Dis Tab 4 mg = 1 tab(s), Oral, q6hr, PRN Nausea, X 3 day(s), # 12 tab(s), Refills(s) 0, Pharmacy: [facility] [id number], 173, cm, 05/22/24 21:52:00 EDT, Height/Length Dosing, 112.2, kg, 05/22/24 21:52:00 EDT, Weight Dosing Start Date: 05/24/24 Stop Date: 05/27/24 Status: Ordered Start: 02-05-2024 End: 02-05-2024 ondansetron (ZOFRAN-ODT) disintegrating tablet 4 mg Start: 01-27-2024 End: 05-26-2024 take 1 tablet by mouth three times daily as needed for nausea ondansetron (ZOFRAN-ODT) 4 MG disintegrating tablet Take 1 tablet by mouth 3 times daily as needed for Nausea or Vomiting 21 tablet 01/27/2024 05/26/2024 Discontinued (LIST CLEANUP) Start: 01-04-2024 End: 01-04-2024 ondansetron (ZOFRAN) injecti on 4 mg Start: 01-04-2024 End: 05-26-2024 take 1 tablet by mouth every eight hours as needed for nausea ondansetron (ZOFRAN) 4 MG tablet Take 1 tablet by mouth every 8 hours as needed for Nausea 20 tablet 01/04/2024 05/26/2024 Discontinued (LIST CLEANUP) Start: 12-25-2023 take 1 tablet by erlinda [...] or Vomiting 21 tablet 0 01/04/2019 Active take 2 tablets by mo [facility] every eight hours as needed for nausea and vomiting ondansetron (Zofran) 4 MG tablet Take 8 mg by mouth every 8 (eight) hours if needed for nausea or vomiting Active 2 ml orphenadrine citrate 30 mg/ml injection (1 source) Muscle Relaxant Start: 09-17-2020 End: 09-17-2020 orphenadrine (NORFLEX) injection 60 mg polyethylene glycol [id number] mg powder for oral solution (12 sources) Osmotic Laxative Start: 11-05-2024 17 g, Oral, D AILY PRN, Starting on Emiliana 11/05/24 at 0235, Until Discontinued, Constipation, First line therapy for constipation Start: 08-13-2024 take 17 g by mouth t hree times daily MiraLax 17 gm, Oral, TID, Refill(s) 0 Start Date: 08/13/24 Status: Ordered Repeat number: 1 Start: 08-13-2024 take 17 g by mouth t hree times daily MiraLax 17 gm, Oral, TID, Refill(s) 0 Start Date: 08/13/24 Status: Ordered Start: 06-15-2020 polyethylene g lycol (GLYCOLAX) packet 17 g predniSONE 20 mg oral tablet (5 sources) Start: 07-08-2022 End: 07-13-2022 predniSONE (DELTASONE) table t 20 mg Start: 06-02-2021 End: 06-07-2021 predniSONE (DELTASONE) table t 20 mg Start: 09-17-2020 End: 09-21-2020 take 5 tablets by mouth once daily predniSONE (DELTASONE) 10 MG tablet Take 5 tablets by mouth daily for 4 days 20 tablet 0 09/17/2020 09/21/2020 Active [id number]-NJ PO (17 sources) End: 05-24-2020 [id number]-R4-[id number]-X1-YR PO Ta ke by mouth 0 05/24/2020 Discontinued (Stop Taking at Discharge) KIPYOW-U5-P9-B12 -D3-FA PO Take by mouth 0 Suspended BWBIPC-D8-O1-B12 -D3-FA PO Take by mouth 0 Active prochlorperazine 5 mg/ml injectable solution (20 sources) Phenothiazine Start: 02-09-2025 End: 02-09-2025 10 mg, IntraVENous, ONCE, 1 dose, On Sat02/09/25 at 1900 Start: 02-05-2025 End: 02-05-2025 10 mg, IntraVENous, ONCE, 1 dose, On Sat02/05/25 at 2045, If administering IV push, administer at a maximum rate of 5 mg/minute. Patients should remain lying down following administration and be reassessed for relief of nausea and presence of hypotension. Patients should be assisted the first time they get up after administration. Start: 01-01-2025 End: 01-01-2025 10 mg, IntraVENous, ONCE, 1 dose, On Sat01/01/25 at 0100, If administering IV push, administer at a maximum rate of 5 mg/minute. Patients should remain lying down following administration and be reassessed for relief of nausea and presence of hypotension. Patients should be assisted the first time they get up after administration. Start: 11-05-2024 10 mg, IntraVE Nous, EVERY 6 HOURS PRN, Starting on Sat11/05/24 at 1401, Until Discontinued, Nausea, If administering IV push, administer at a maximum rate of 5 mg/minute. Patients should remain lying down following administration and be reassessed for relief of nausea and presence of hypotension. Patients should be assisted the first time they get up after administration. Start: 11-04-2024 End: 11-04-2024 10 mg, IntraVENous, ONCE, 1 dose, On Sat11/04/24 at 2200, If administering IV push, administer at a maximum rate of 5 mg/minute. Patients should remain lying down following administration and be reassessed for relief of nausea and presence of hypotension. Patients should be assisted the first time they get up after administration. Start: 10-20-2024 take 10 mg by mouth every six hours as needed 10 mg, Oral, EVERY 6 HOURS PRN, Starting on Sat10/20/24 at 1533, Until Discontinued, nausea Start: 10-20-2024 End: 10-20-2024 10 mg, IntraVENous, ONCE, 1 dose, On Sat10/20/24 at 0945, If administering IV push, administer at a maximum rate of 5 mg/minute. Patients should remain lying down following administration and be reassessed for relief of nausea and presence of hypotension. Patients should be assisted the first time they get up after administration. Start: 09-30-2024 prochlorperazi ne (COMPAZINE) 5 mg tablet Take 5 mg by mouth. 09/30/2024 Active Start: 09-17-2024 End: 09-17-2024 10 mg, IntraVENous, ONCE, 1 dose, On Sat09/17/24 at 1330, If administering IV push, administer at a maximum rate of 5 mg/minute. Patients should remain lying down following administration and be reassessed for relief of nausea and presence of hypotension. Patients should be assisted the first time they get up after administration. Start: 08-24-2024 End: 08-31-2024 take 1 tablet by mouth three times daily Compazine 10 mg oral tablet = 1 tab(s), Oral, TID, X 7 day(s), # 21 tab(s), Refills(s) 0 Start Date: 08/24/24 Stop Date: 08/31/24 Status: Ordered Start: 08-10-2024 prochlorperazi ne 10 mg Tab 10 mg = 1 tab(s), Refills(s) 0 Start Date: 08/10/24 Status: Ordered Start: 08-06-2024 take 1 dose by mouth once 10 m g, Oral, ONCE, 1 dose, On Emiliana 08/06/24 at 1315 Start: 07-07-2024 take 10 mg by mouth every six hours as needed 10 mg, Oral, EVERY 6 HOURS PRN, Starting on Sat07/07/24 at 1446, Until Discontinued, nausea Start: 07-07-2024 End: 07-07-2024 10 mg, IntraVENous, ONCE, 1 dose, On Sat07/07/24 at 1015, If administering IV push, administer at a maximum rate of 5 mg/minute. Patients should remain lying down following administration and be reassessed for relief of nausea and presence of hypotension. Patients should be assisted the first time they get up after administration. Start: 06-16-2024 take 1 tablet by erlinda th every six hours as needed for nausea prochlorperazine (COMPAZINE) 10 MG tablet Take 1 tablet by mouth every 6 hours as needed (nausea) 20 tablet 06/16/2024 Active Start: 05-26-2024 End: 06-02-2024 take 1 tablet by mouth every six hours as needed for nausea prochlorperazine (COMPAZINE) 10 MG tablet Take 1 tablet by mouth every 6 hours as needed (Nausea, vomiting) 28 tablet 05/26/2024 06/02/2024 Active Xthtoyxtwfepbwp-XINL-XM (DAY QUIL PO) (4 sources) End: 10-29-2022 Cekmoyswzupmyjw-RUGH-ZK (DAYQUIL PO) Take by mouth 0 10/29/2022 [...] 1 dose 1 kit 0 12/05/2018 Active 1000 ml sodium chloride 9 mg/ml injection (20 sources) Start: 02-09-2025 End: 02-09-2025 1,000 mL, IntraVENous, at 1, 000 mL/hr, Administer over 1 Hours, ONCE, On Sat02/09/25 at 1900, For 1 dose Start: 02-05-2025 End: 02-05-2025 1,000 mL, IntraVENous, at 49 5.9 mL/hr, Administer over 121 Minutes, ONCE, On Sat02/05/25 at 2045, For 1 dose, For adult patients weighing > 55 kg (120 lbs.) and less than Start: 01-01-2025 End: 01-01-2025 1,000 mL, IntraVENous, at 2, 000 mL/hr, Administer over 30 Minutes, ONCE, On Sat01/01/25 at 0100, For 1 dose Start: 11-05-2024 10 mL, IntraVE Nous, EVERY 12 HOURS SCHEDULED (2 times per day), First dose on Sat11/05/24 at 0900, Until Discontinued Start: 11-05-2024 Start: 11-05-2024 End: 11-06-2024 IntraVENous, at 100 mL/hr, CONTINUOUS, Starting on Sat11/05/24 at 0300, For 24 hours, Complete last bag that is running at 24 hours and then saline lock IV Start: 11-04-2024 End: 11-05-2024 1,000 mL, IntraVENous, at 1, 000 mL/hr, Administer over 1 Hours, ONCE, On Sat11/04/24 at 2200, For 1 dose Start: 10-20-2024 End: 10-21-2024 IntraVENous, at 150 mL/hr, CONTINUOUS, Starting on Sat10/20/24 at 1600, For 24 hours, Complete last bag that is running at 24 hours and then saline lock IV Start: 10-20-2024 Start: 10-20-2024 End: 10-20-2024 1,000 mL (9.18 mL/kg), IntraVENous, at 1,000 mL/hr, Administer over 1 Hours, ONCE, On Sat10/20/24 at 0930, For 1 dose Start: 09-17-2024 End: 09-17-2024 1,000 mL (9.03 mL/kg), IntraVENous, at 495.9 mL/hr, Administer over 121 Minutes, ONCE, On Emiliana 09/17/24 at 1330, For 1 dose, For adult patients weighing > 55 kg (120 lbs.) and less than Start: 07-07-2024 End: 07-08-2024 IntraVENous, at 75 mL/hr, CONTINUOUS, Starting on Sat07/07/24 at 1515, For 24 hours, Complete last bag that is running at 24 hours and then saline lock IV Start: 07-07-2024 Start: 05-26-2024 End: 05-26-2024 1,000 mL, IntraVENous, at 49 5.9 mL/hr, Administer over 121 Minutes, ONCE, On Sat05/26/24 at 1215, For 1 dose Start: 01-04-2024 End: 01-04-2024 sodium chloride 0.9 [...] End: 05-25-2019 0.9 % sodium chloride bolus technetium sulfur colloid eg g Oral 1 millicurie (1 source) Start: 05-14-2024 End: 05-14-2024 1 millicurie, Oral, IMG ONCE PRN, 1 dose, Starting on Emiliana 05/14/24 at 0810, Until Emiliana 05/14/24 at 0822, Other, IN EGG Problems Active Problems Problem Classification Problem Date Documented Date Episodic/Chronic Acute bronchitis (1 source) Acute bronchitis; Translations: [Acute bronchitis, unspecified] Episodic Anxiety disorders (20 sources) Generalized anxiety disorder; Translations: [Generalized anxiety disorder] Onset: 3 11-30-2022 Chronic Asthma (11 sources) Unspecified asthma, uncomplicated; Translations: [Mild intermittent asthma] Onset: 5 12-24-2024 Chronic Biliary tract disease (20 sources) Cholangiectasis; Translations: [Other specified diseases of biliary tract] Onset: 7 03-20-2021 Chronic Coagulation and hemorrhagic disorders (20 sources) Hypercoagulability state; Translations: [Other primary thrombophilia] Onset: 0 08-03-2020 Chronic Deficiency and other anemia (1 source) Iron deficiency anemia due to blood loss; Translations: [Iron deficiency anemia due to chronic blood loss] Diabetes mellitus with complications (20 sources) Gastroparesis due to diabetes mellitus; Translations: [Type 2 diabetes mellitus with diabetic autonomic (poly)neuropathy] Onset: 4 05-14-2024 Chronic Diabetes mellitus without complication (20 sources) Diabetes mellitus; Translations: [Type 2 diabetes mellitus without complications] Onset: 3 11-30-2022 Chronic Diseases of white blood cells (20 sources) Band neutrophil count above reference range; Translations: [Bandemia] Onset: 7 03-20-2021 Chronic Disorders of lipid metabolism (20 sources) Dyslipidemia; Translations: [Hyperlipidemia, unspecified] Onset: 5 10-08-2024 Chronic Disorders usually diagnosed in infancy, childhood, or adolescence (1 source) Other specified behavioral and emotional disorders with onset usually occurring in childhood and adolescence Chronic Endometriosis (20 sources) Endometriosis (clinical); Translations: [Endometriosis, unspecified] Onset: 3 Chronic Esophageal disorders (20 sources) Gastroesophageal reflux disease; Translations: [Gastro-esophageal reflux disease without esophagitis] Onset: 4 11-30-2022 Chronic Essential hypertension (20 sources) Essential hypertension; Translations: [Essential (primary) hypertension] [...] menstruation with regular cycle] Chronic Mood disorders (20 sources) Depressive disorder; Translations: [Moderate recurrent major depression] Onset: 4 11-30-2022 Chronic Mood disorders (1 source) Mood disorders; Translations: [DEPRESSION UNSPECIFIED] Onset: 3 Noninfectious gastroenteritis (20 sources) Noninfectious enteritis; Translations: [Noninfective gastroenteritis and colitis, unspecified] Onset: 3 Episodic Nonspecific chest pain (2 sources) Chest pain; Translations: [Chest pain, unspecified] Episodic Other aftercare (1 source) Other acute care certified nursing assistant (current) drug therapy; Translations: [OTH [employer] SE[employer]ER CURRENT DRUG THERAPY] Onset: 3 Episodic Other and ill-defined heart disease (20 sources) Left ventricular hypertrophy; Translations: [Cardiomegaly] Onset: 0 04-04-2020 Chronic Other and ill-defined heart disease (20 sources) Cardiomegaly; Translations: [Cardiomegaly] Onset: 0 04-04-2020 Chronic Other connective tissue disease (2 sources) Pain in right lower limb; Translations: [Right leg pain] Episodic Other connective tissue disease (1 source) Musculoskeletal pain; Translations: [Myalgia, other site] Episodic Other diseases of bladder and urethra (20 sources) Disorder of bladder; Translations: [Other specified disorders of bladder] Onset: 3 Chronic Other diseases of bladder and urethra (1 source) Bladder disorder, unspecified Chronic Other disorders of stomach and duodenum (20 sources) Gastroparesis syndrome; Translations: [Gastroparesis] Onset: 4 Episodic Other endocrine disorders (1 source) Polycystic ovarian syndrome Chronic Other female genital disorders (1 source) History of gynecological disorder; Translations: [Personal history of other diseases of the female genital tract] Episodic Other gastrointestinal disorders (2 sources) Chronic idiopathic constipation; Translations: [Chronic idiopathic constipation] 12-02-2024 Chronic Other gastrointestinal disorders (1 source) Constipation - functional; Translations: [Chronic idiopathic constipation] 12-15-2024 Chronic Other gastrointestinal disorders (20 sources) Diarrhea; Translations: [Diarrhea, unspecified] Onset: 3 Episodic Other gastrointestinal disorders (20 sources) Dysphagia; Translations: [Dysphagia, unspecified] Onset: 3 Episodic Other gastrointestinal disorders (4 sources) Dysphagia, unspecified; Translations: [DYSPHAGIA UNSPECIFIED] Onset: 3 Episodic Other gastrointestinal disorders (1 source) Diarrhea, unspecified; Translations: [DIARRHEA UNSPECIFIED] Onset: 3 Episodic Other gastrointestinal disorders (2 sources) Constipation, unspecified; Translations: [Constipation, unspecified] Onset: 4 Episodic Other gastrointestinal disorders (2 sources) Other constipation; Translations: [Other constipation] Onset: 4 Episodic Other gastrointestinal disorders (8 sources) Chronic constipation 09-09-2024 Episodic Other injuries and conditions due to external causes (1 source) Injury of head; Translations: [Injury of head, initial encounter] Episodic Other injuries and conditions due to external causes (1 source) Closed injury of head; Translations: [Closed head injury, initial encounter] Episodic Other liver diseases (20 sources) Steatosis of liver; Translations: [Fatty (change of) liver, not elsewhere classified] Onset: 4 Chronic Other liver diseases (18 sources) Non-alcoholic fatty liver; Translations: [Fatty (change of) liver, not elsewhere classified] Onset: 4 07-09-2024 Chronic Other liver diseases (11 sources) Non-alcoholic fatty liver disease without non-alcoholic steatohepatitis; Translations: [Fatty (change of) liver, not elsewhere classified] Onset: 4 12-23-2024 Chronic Other liver diseases (1 source) Fatty (change of) liver, not elsewhere classified; Translations: [Nonalcoholic fatty liver] Onset: 5 Chronic Other lower respiratory disease (20 sources) Dyspnea; Translations: [SOB (shortness of breath)] 11-30-2022 Episodic Other lower respiratory disease (1 source) Cough; Translations: [Cough] Episodic Other nervous system disorders (2 sources) Chronic pain; Translations: [Other chronic pain] Onset: 4 Chronic Other nervous system disorders (1 source) Other chronic pain; Translations: [Chronic generalized abdominal pain] Onset: 5 Chronic Other nutritional; endocrine; and metabolic disorders (20 sources) Body mass index 30+ - obesity; Translations: [Obesity, unspecified] Onset: 7 03-25-2017 Chronic Other nutritional; endocrine; and metabolic disorders (20 sources) Hypercalcemia; Translations: [Hypercalcemia] Onset: 7 03-25-2017 Chronic Other nutritional; endocrine; and metabolic disorders (20 sources) Morbid obesity; Translations: [Morbid (severe) obesity due to excess calories] Onset: 4 Chronic Other nutritional; endocrine; and metabolic disorders (1 source) Morbid (severe) obesity due to excess calories; Translations: [MORBID SEVERE OBES D/T EXCESS ALEX] Onset: 3 Chronic Other nutritional; endocrine; and metabolic disorders (1 source) Body mass index (BMI) 37.0-37.9, adult; Translations: [BODY MASS INDEX BMI 37.0-37.9 ADULT] Onset: 3 Chronic Other nutritional; endocrine; and metabolic disorders (14 sources) Severe obesity; Translations: [Class 2 severe obesity due to excess calories with serious comorbidity and body mass index (BMI) of 37.0 to 37.9 in adult ([facility])] Onset: 4 08-11-2024 Chronic Other nutritional; endocrine; and metabolic disorders (1 source) Obesity; Translations: [Obesity, unspecified] Onset: 4 Chronic Other nutritional; endocrine; and metabolic disorders (1 source) Obesity, unspecified; Translations: [Obesity with body mass index 30 or greater] Onset: 5 Chronic Other upper respiratory infections (2 sources) Acute upper respiratory infection; Translations: [Acute upper respiratory infection, unspecified] Episodic Ovarian cyst (20 sources) Cyst of right ovary 11-30-2022 Episodic Ovarian cyst (1 source) Cyst of right ovary; Translations: [Cyst of right ovary] Pancreatic disorders (not diabetes) (14 sources) Chronic pancreatitis; Translations: [Other chronic pancreatitis] Onset: 5 11-05-2024 Chronic Residual codes; unclassified (20 sources) H/O: major abdominal surgery; Translations: [Acquired absence of other genital organ(s)] 05-22-2020 Episodic Residual codes; unclassified (20 sources) Bilateral lower limb edema; Translations: [Localized edema] Onset: 4 11-30-2022 Episodic Residual codes; unclassified (20 sources) Insomnia 11-30-2022 Episodic Residual codes; unclassified (1 [...] BOTH CERVIX AND UTERUS] Onset: 3 Episodic Spondylosis; intervertebral disc disorders; other back problems (20 sources) Prolapsed lumbar intervertebral disc; Translations: [Lumbar disc prolapse with radiculopathy] Onset: 3 11-30-2022 Chronic Substance-related disorders (20 sources) Smoker; Translations: [Nicotine dependence, unspecified, uncomplicated] Onset: 7 Resolved: 3 04-09-2017 Chronic Substance-related disorders (1 source) Marijuana user; Translations: [Cannabis use, unspecified, uncomplicated] 02-17-2025 Episodic Syncope (1 source) Syncope; Translations: [Syncope and collapse] Episodic Unclassified (16 sources) Finding of uterine contractions; Translations: [Uterine contractions during ] Onset: 0 04-07-2020 Unclassified (1 source) ESOPHAGITIS UNSPEC WITHOUT BLEEDING; Translations: [ESOPHAGITIS UNSPEC WITHOUT BLEEDING] Onset: 3 Unclassified (1 source) CUSTODIAL INJECT NONINSULN ANTIDIAB; Translations: [CUSTODIAL INJECT NONINSULN ANTIDIAB] Onset: 3 Unclassified (3 sources) LOW BACK PAIN, UNSPECIFIED; Translations: [LOW BACK PAIN, UNSPECIFIED] Onset: 2 Unclassified (1 source) CONTACT W/AND (SUSP) EXPOS COVID-19; Translations: [CONTACT W/AND (SUSP) EXPOS COVID-19] Onset: 2 Unclassified (20 sources) Patient on antidepressant monitoring plan Onset: 4 01-20-2024 Unclassified (20 sources) Baseline PHQ-9 Onset: 4 01-20-2024 Unclassified (1 source) PATIENT LEFT chest congestion, trouble breathing, abd pain Onset: Past or Other Problems Problem Classification Problem Date Documented Da te Episodic/Chronic Abdominal hernia (20 sources) Hiatal hernia; Translations: [Diaphragmatic hernia without obstruction or gangrene] Onset: 04-09-2017 04-09-2017 Episodic Abdominal pain (20 sources) Right lower quadrant pain; Translations: [Right upper quadrant pain] Onset: 07-10-2017 Resolved: 03-29-2020 07-10-2017 Episodic Biliary tract disease (20 sources) Cholangiectasis; Translations: [Common bile duct dilatation] Onset: 03-26-2017 03-26-2017 Episodic Cardiac dysrhythmias (20 sources) Tachycardia; Translations: [Palpitations] Onset: 12-30-2019 12-30-2019 Episodic Chronic obstructive pulmonary disease and bronchiectasis (2 sources) Bronchitis; Translations: [Bronchitis, not specified as acute or chronic] Onset: 06-16-2024 Episodic Complications of surgical procedures or medical care (20 sources) Complication of surgical procedure; Translations: [Unspecified complication of procedure, initial encounter] Onset: 11-12-2022 Episodic Conditions associated with dizziness or vertigo (20 sources) Lightheadedness; Translations: [Dizziness] Onset: 12-30-2019 12-30-2019 Episodic Diabetes mellitus without complication (20 sources) Hyperglycemia; Translations: [Hyperglycemia, unspecified] Onset: 08-03-2023 Episodic Diabetes or abnormal glucose tolerance complicating [...] disorders (1 source) Dehydration; Translations: [Dehydration] Onset: 10-17-2024 Episodic Inflammatory diseases of female pelvic organs (20 sources) Adhesions of uterus; Translations: [Female pelvic peritoneal adhesions (postinfective)] Onset: 11-12-2022 Episodic Influenza (1 source) Influenza due to Influenza A virus; Translations: [Influenza due to other identified influenza virus with other respiratory manifestations] 10-14-2023 Episodic Malposition; malpresentation (20 sources) Breech presentation; Translations: [Maternal care for breech presentation, not applicable or unspecified] Resolved: 03-26-2017 03-26-2017 Episodic Nausea and vomiting (20 sources) Nausea and vomiting; Translations: [Nausea] Onset: 01-13-2024 Episodic Other aftercare (2 sources) 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; 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] Onset: 04-21-2024 Episodic Other circulatory disease (20 sources) Prehypertension; [...] 05-30-2016 05-30-2016 Episodic Other connective tissue disease (3 sources) Paraparesis; Translations: [Other symptoms and signs involving the musculoskeletal system] Onset: 06-21-2023 06-21-2023 Episodic Other connective tissue disease (17 sources) Other symptoms and signs involving the musculoskeletal system; Translations: [Other musculoskeletal symptoms referable to limbs] Onset: 06-21-2023 06-21-2023 Episodic Other connective tissue disease (1 source) Pain in right leg Onset: 05-04-2024 Episodic Other connective tissue disease (1 source) Pain in left leg Onset: 05-04-2024 Episodic Other disorders of stomach and duodenum (8 sources) Gastroparesis; Translations: [K31.84] Onset: 08-13-2024 Episodic Other gastrointestinal disorders (20 sources) Personal history of other diseases of the digestive system; Translations: [History of pancreatitis] Onset: 04-09-2017 04-09-2017 Episodic Other gastrointestinal disorders (20 sources) Adhesion of omentum; Translations: [Peritoneal adhesions (postprocedural) (postinfection)] Onset: 11-12-2022 Episodic Other infections; including parasitic (20 sources) Infection by Trichomonas; Translations: [Trichomoniasis, unspecified] Onset: 03-03-2016 Resolved: 05-30-2016 05-30-2016 Episodic Other nervous system disorders (20 sources) Postoperative pain ; Translations: [Other acute postprocedural pain] Onset: 11-12-2022 Episodic Other nervous system disorders (1 source) Anesthesia of skin; Translations: [ANESTHESIA OF SKIN] Onset: 04-25-2022 Episodic Other nervous system disorders (1 source) Other disturbances of skin sensation Onset: 05-04-2024 Episodic Other and delivery including normal (20 sources) Normal ; Translations: [] Onset: 03-03-2016 Resolved: 05-30-2016 06-27-2017 Episodic Pancreatic disorders (not diabetes) (20 sources) Acute pancreatitis; Translations: [Acute pancreatitis without necrosis or infection, unspecified] Onset: 03-25-2017 Resolved: 10-20-2024 03-26-2017 Episodic Pulmonary heart disease (20 sources) [...] 03-26-2017 Episodic Residual codes; unclassified (20 sources) Persistent insomnia; Translations: [Insomnia, unspecified] Onset: 01-08-2024 01-08-2024 Episodic Residual codes; unclassified (20 sources) Gestation period, 38 weeks; Translations: [38 weeks gestation of ] Resolved: 03-26-2017 03-26-2017 Skin and subcutaneous tissue infections (20 sources) Cutaneous abscess of right lower limb; Translations: [Abscess of left axilla] Onset: 04-21-2024 Resolved: 07-28-2024 06-08-2024 Episodic Spondylosis; intervertebral disc disorders; other back problems (20 sources) Acute back pain with sciatica; Translations: [Lumbar radiculopathy] Onset: 09-25-2020 09-25-2020 Episodic Unclassified (18 sources) Finding of sensation of abdomen; Translations: [Abdominal cramps] Onset: 03-29-2020 Resolved: 03-29-2020 03-29-2020 Unclassified (20 sources) Complication of obstetrical surgical wound; Translations: [Wound infection/hemorrhage, obstetric surgical, condition] Onset: 03-30-2016 Resolved: 05-30-2016 05-30-2016 Unclassified (1 source) LOW BACK PAIN, UNSPECIFIED; Translations: [LOW BACK PAIN, UNSPECIFIED] Onset: 04-23-2022 Viral infection (2 sources) Viral disease; Translations: [Viral infection, unspecified] 01-04-2024 Episodic Results Test Name Value Interpretation Reference Range Facility [facility] 05-06-2025 CNCO Letter Text Normal [facility] CNPSofi 04-23-2025 CNPN Telephone ([facility]) GAEL [id number]) 1995 F Date Time Provider Department 04/23/25 YAJAIRA LACKEY [facility] During your visit today, we recorded the following information about you: Dixie Grimaldo RN 04/23/2025 9:02 AM Signed Prior Authorization initiated thru [facility] /[place] Code: H9VFES Awaiting response Insurance: [employer] Medicaid ID: [id number] RxBIN: [id number] RxPCN:[id number] RxGroup: Tried and failed Patient has been being treated with Gimoti/Metoclopramide Nasal [place] since 12/02/2024 and it works best for her plan of care. Spoke with patient (identified by two identifiers), tried/failed/ineffecti ve: Dulcolax/Bisacodyl, OTC, 09/23/2024-current Miralax/Polyethylene Glycol 08/13/2024-current Colace/Docusate Sodium, OTC, 04/23/2025-current Reglan/Metoclopramide 10 mg tablet 05/20/2024-12/15/2024 Dixie Grimaldo RN 04/23/2025 4:22 PM Signed Denial received via fax Scanned into chart Karla Mcnally RN 05/20/2025 9:51 AM Addendum Fax received with DENIAL for Gimoti. (Denial scanned into patient's chart) PA for Gimoti resubmitted on M with new information because this was approved previously. Awaiting response [place] Medicaid ID# [id number] Rx BIN [id number] Rx PCN OHRXPROD Patient has tried oral Reglan in the past and with gastroparesis, diabetes and nausea/vomiting oral Reglan was not effective. Karla Mcnally RN 05/06/2025 12:04 PM Signed Received another DENIAL for Gimoti renewal on CMM with [place] [id number], . Spoke with [employer] on denial and appeal letter written and faxed to [place] [employer] with supporting documents to try and get re approval for Gimot. Faxed to Appeals at [place] [employer] at [phone]. Fax verification received. Awaiting response (paperwork is in pending cases file) Karla Mcnally RN 05/20/2025 10:53 AM Signed Fax received from [employer] with DENIAL of appeal for Gimoti. Denial appeal letter scanned into patient's chart. Case# [id number] ID# [id number] Called [place] [employer]/[facility] at [phone] for Peer to Peer. Spoke with Mina, pharmacist, and will not re approve because [...] since unable to get Gimoti re approved. Allergies As of Date: 04/23/2025 Noted Allergy Reaction KETOROLAC 01/23/2013 9 - Itching 12 - Shortness of Breath MEPERIDINE 02/26/2016 9 - Itching 12 - Shortness of Breath Comments: UNKNOWN REACTION EGG 12/02/2024 8 - GI Upset KIWI (ACTINIDIA CHINENSIS) 06/03/2023 9 - Itching LATEX 02/27/2016 9 - Itching Comments: Pruritis AMOXICILLIN 02/26/2016 2 - Rash Comments: hives PENICILLINS 02/27/2016 2 - Rash Comments: hives PHENAZOPYRIDINE 02/27/2016 1 - Mental Status Change 14 - Other: See Comments Date Reviewed: 02/17/2025 Reviewed by: Stella Harris MA - Fully Assessed Reason for Visit: Medication Preauthorization [914] Cmt: PA for Gimoti renewal Prescriptions as of 05/20/2025 - nortriptyline (PAMELOR) 10 mg capsule Trial Rx: take 1 tab PO qhs. - pantoprazole DR (PROTONIX) 40 mg tablet Take 1 tablet by mouth two times a day. - sucralfate (CARAFATE) 1 gram tablet Take 1 tablet by mouth two times a day. - promethazine (PHENERGAN) 25 mg suppository 25 mg by RECTAL route. - prochlorperazine (COMPAZINE) 5 mg tablet Take 5 mg by mouth. - polyethylene glycol 3350 (MIRALAX ORAL) Take 17 g by mouth. - ondansetron orally disintegrating (ZOFRAN ODT) 4 mg disintegrating tablet 4 mg. - LANTUS SOLOSTAR U-100 INSULIN 100 unit/mL (3 mL) Inject 25 Units subcutaneously daily at bedtime. Taking 30 units at night - JARDIANCE 10 mg tablet Take 10 mg by mouth. - PROZAC 40 mg capsule Take 40 mg by mouth. - glipiZIDE (GLUCOTROL) 10 mg tablet Take 20 mg by mouth. - atorvastatin (LIPITOR) 40 mg tablet Take 40 mg by mouth. - metoclopramide HCl (GIMOTI) 15 mg/spray nasal spray Use 1 [place] in the nose four times daily. Problem List As Of Date 04/23/2025 Noted Resolved Chronic pancreatitis (HCC) [K86.1] 11/05/2024 DDD (degenerative disc disease), lumbar [M51.36*07/29/2023 Diabetic gastroparesis associated with type 2 d*04/29/2024 Dyslipidemia [E78.5] 10/08/2024 Essential hypertension [I10] 12/23/2024 Factor V Leiden (HCC) [D68.51] 12/23/2024 Gastroesophageal reflux disease [K21.9] 01/08/2024 History of pulmonary embolism [Z86.711] 0 (more content not included)... Normal [facility] CNOVon 02-17-2025 [facility] Office Visit ([facility] ) GAEL RUBY ([id number]) 1995 F Date Time Provider Department 02/17/25 1:[address] [facility] During your visit today, we recorded the following information about you: Pulse Blood pressure 82/minute 119/85 Best Reynoso MD 02/17/2025 1:58 PM Signed Referring Or Consulting Physician: Yajaira Lackey [address] [place] [address] CHIEF COMPLAINT: pain in my upper abdomen HPI: This is a 29 year old female here for evaluation of pain that began 1+ year ago following no particular inciting event. At this point, the pain is located in the areas detailed above (see cc). The patient describes the pain as aching and is a 9/10 in severity. It is constant. The pain is exacerbated by stress. The pain is mitigated by liquid diet The patient is currently taking the following medications for pain: tylenol The patient previously has taken the following medications for pain: tylenol Symptoms interfere with eating. The patient denies red flags In the last 6 months, Physical Therapy/Home Exercise Completed?: No Relevant [place] records were reviewed by physician, yes Opioid Agreement: n/a Receiving Disability Income: no Last Date/Time Patient had Opioid Medication: n/a Previous Xrays?: yes -------- Is the patient receiving analgesia/pain relief from the current medications? (yes) Has the current medication improved activities such as walking or standing? (yes) Have the current medications been associated with any adverse events? (no) Illicit drug use? (cannabis) -------- THERESE [place] 28, 2025 Patient denies loss of bowel or bladder control, unintentional weight loss, h/o malignancy, fevers/chills/night sweats. No past medical history on file. PAST SURGICAL HISTORY Procedure Laterality Date EGD W/O BRSH SPEC VARICIES INJ PAST SURGICAL HISTORY OF c section x3 PAST SURGICAL HISTORY OF Left left oophorectomy and salpingectomy REMOVAL GALLBLADDER VAGINAL HYSTERECTOMY Social History Tobacco Use Smoking status: Every Day Types: Cigarettes Smokeless tobacco: Never Tobacco comments: 09/24 ppd Substance Use Topics Alcohol use: Never Drug use: Yes Types: Marijuana Comment: smokes, vapes, edibles FH: Patient denies a family history of the current chief complaint. ALLERGIES Allergen Reactions Ketorolac Itching, Shortness of Breath Meperidine Itching, Shortness of Breath UNKNOWN REACTION Egg GI Upset Kiwi (Actinidia Chi* Itching Latex Itching Pruritis Amoxicillin Rash hives Penicillins Rash hives Phenazopyridine Mental Status Change, Other: See Comments Current Outpatient Medications Medication Sig pantoprazole DR (PROTONIX) 40 mg tablet Take 1 tablet by mouth two times a day. sucralfate (CARAFATE) 1 gram tablet Take 1 tablet by mouth two times a day. promethazine (PHENERGAN) 25 mg suppository 25 mg by RECTAL route. prochlorperazine (COMPAZINE) 5 mg tablet Take 5 mg by mouth. polyethylene glycol 3350 (MIRALAX ORAL) Take 17 g by mouth. ondansetron orally disintegrating (ZOFRAN ODT) 4 mg disintegrating tablet 4 mg. LANTUS SOLOSTAR U-100 INSULIN 100 unit/mL (3 mL) Inject 25 Units subcutaneously daily at bedtime. Taking 30 units at night JARDIANCE 10 mg tablet Take 10 mg by mouth. PROZAC 40 mg capsule Take 40 mg by mouth. glipiZIDE (GLUCOTROL) 10 mg tablet Take 20 mg by mouth. atorvastatin (LIPITOR) 40 mg tablet Take 40 mg by mouth. metoclopramide HCl (GIMOTI) 15 mg/spray nasal spray Use 1 [place] in the nose four times daily. No current facility-administered medications for this visit. Questionnaires: Patient Entered Questionnaires PROMIS Score Percentiles 12/22/2024 PROMIS Global Health Scale Physical Health Percentile 7 Mental Health Percentile 19* Patient-reported 02/12/2025 Physical Health Physical Function Percentile 3 Pain Interference Percentile 1 Percentiles provide an indication of how the patient's score ranks in relation to the general population. Higher percentile rankings indicate better function/quality of life. 50th percentile is the average of the general population and indicates half of respondents had a worse score. > 31st percentile is within normal limits or better * < 31st percentile is at least ? SD worse than population, which may be clinically relevant < 16th percentile is at least 1 SD worse than population and warrants attention Depression Screening: PHQ-9 Self-Harm (Item 9) response options: 0 Not at all 1 Several days 2 More than half the days 3 Nearly every day PHQ-9 Levels: 0-4 Minimal depress (more content not included)... Normal [facility] Basic Metabolic Profon 02-12 Anion gap [Moles/Vol] 12 mmol/L Normal 9-[address] [facility] Comment on above: Performed By: #### L IVP, CDP, BMP, LIP #### [facility] [address] [place] [phone] Safemaker: Rishabh Mendieta MD Calcium [Mass/Vol] 9.5 mg/dL Normal 8.6-10.4 [facility] Comment on above: Performed By: #### L IVP, CDP, BMP, LIP #### [facility] [address] [place] [id number] Safemaker: Rishabh Mendieta MD Chloride [Moles/Vol] 104 mmol/L Normal 98-107 [facility] Comment on above: Performed By: #### L IVP, CDP, BMP, LIP #### [facility] [address] [place] [id number] Safemaker: Rishabh Mendieta MD CO2 [Moles/Vol] 22 mmol/L Normal 20-31 [facility] Comment on above: Performed By: #### L IVP, CDP, BMP, LIP #### [facility] [address] [place] [phone] Safemaker: Rishabh Mendieta MD Creatinine [Mass/Vol] 0.7 mg/dL Normal 0.6-0.[address] [facility] Comment on above: Performed By: #### L IVP, CDP, BMP, LIP #### [facility] [address] [place] [address] 13535 Safemaker: Rishabh Mendieta MD GFR/1.73 sq M.predicted among non-blacks MDRD (S/P/Bld) [Vol rate/Area] mL/min/{1.73_m2} Normal >60 [facility] Comment on above: Result Comment: These [...] affects renal tubular secretion. Performed By: #### L IVP, CDP, BMP, LIP #### [facility] [address] [place] [phone] Safemaker: Rishabh Mendieta MD Glucose [Mass/Vol] 259 mg/dL High 74-99 [facility] Comment on above: Performed By: #### L IVP, CDP, BMP, LIP #### [facility] [address] [place] [phone] Safemaker: Rishabh Mendieta MD Potassium [Moles/Vol] 4.1 mmol/L Normal 3.7-5.[address] [facility] Comment on above: Performed By: #### L IVP, CDP, BMP, LIP #### [facility] [address] [place] [address] [phone] Safemaker: Rishabh Mendieta MD Sodium [Moles/Vol] 138 mmol/L Normal 136-145 [facility] Comment on above: Performed By: #### L IVP, CDP, BMP, LIP #### [facility] [address] [place] [address] [phone] Safemaker: Rishabh Mendieta MD Urea nitrogen [Mass/Vol] 11 mg/dL Normal 6-20 [facility] Comment on above: Performed By: #### L IVP, CDP, BMP, LIP #### [email or web address] [address] [place] [address] Safemaker: Rishabh Mendieta MD CBC with Diffon 02-12-2025 Abs. Basophil 0.05 k/uL Normal 0.00-0.20 [facility] Comment on above: Performed By: #### L IVP, CDP, BMP, LIP #### [email or web address] [address] [place] [address] Safemaker: Rishabh Mendieta MD Abs.Imm.Granulocyte 0.05 k/uL Normal 0.00-0.30 [facility] Comment on above: Performed By: #### L IVP, CDP, BMP, LIP #### [email or web address] [address] [place] [address] Safemaker: Rishabh Mendieta MD Abs.Neutrophil (Seg) 7.21 k/uL Normal 1.50-8.10 [facility] Comment on above: Performed By: #### L IVP, CDP, BMP, LIP #### [email or web address] [address] [place] [address] Safemaker: Rishabh Mendieta MD Basophils/100 WBC (Bld) 0 % Normal 0-2 [facility] Comment on above: Performed By: #### L IVP, CDP, BMP, LIP #### [email or web address] [address] [place] [address] Safemaker: Rishabh Mendieta MD Eosinophils (Bld) [#/Vol] 0.17 10*3/uL Normal 0.00-0.44 [facility] Comment on above: Performed By: #### L IVP, CDP, BMP, LIP #### [email or web address] [address] [place] [phone] Safemaker: Rishabh Mendieta MD Eosinophils/100 WBC (Bld) 1 % Normal 1-4 [facility] Comment on above: Performed By: #### L IVP, CDP, BMP, LIP #### [facility] [email or web address] [address] [place] [address] [phone] Safemaker: Rishabh Mendieta MD Erythrocyte distribution width (RBC) [Ratio] 13.5 % Normal 11.8-14.4 [facility] Comment on above: Performed By: #### L IVP, CDP, BMP, LIP #### [email or web address] [address] [place] [address] [phone] Safemaker: Rishabh Mendieta MD Hematocrit (Bld) [Volume fraction] 41.2 % Normal 36.3-47.1 [facility] Comment on above: Performed By: #### L IVP, CDP, BMP, LIP #### [email or web address] [address] [place] [phone] Safemaker: Rishabh Mendieta MD Hemoglobin (Bld) [Mass/Vol] 14.1 g/dL Normal 11.9-15.1 [facility] Comment on above: Performed By: #### L IVP, CDP, BMP, LIP #### [facility] [email or web address] [address] [place] [address] Safemaker: Rishabh Mendieta MD Immature granulocytes/100 WBC (Bld) 0 % Normal 0 [facility] Comment on above: Performed By: #### L IVP, CDP, BMP, LIP #### [facility] [email or web address] [address] [place] [address] Safemaker: Rishabh Mendieta MD Lymphocytes (Bld) [#/Vol] 4.01 10*3/uL High 1.10-3.70 [facility] Comment on above: Performed By: #### L IVP, CDP, BMP, LIP #### [address] [address] Safemaker: Rishabh Mendieta MD Lymphocytes/100 WBC (Bld) 33 % Normal 24-43 [facility] Comment on above: Performed By: #### L IVP, CDP, BMP, LIP #### [address] [address] Safemaker: Rishabh Mendieta MD MCH (RBC) [Entitic mass] 30.3 pg Normal 25.2-33.5 [facility] Comment on above: Performed By: #### L IVP, CDP, BMP, LIP #### [place] [address] Safemaker: Rishabh Mendieta MD MCHC (RBC) [Mass/Vol] 34.2 g/dL Normal 28.4-34.[address] [facility] Comment on above: Performed By: #### L IVP, CDP, BMP, LIP #### [place] [address] Safemaker: Rishabh Mendieta MD MCV (RBC) [Entitic vol] 88.6 fL Normal 82.6-102.9 [facility] Comment on above: Performed By: #### L IVP, CDP, BMP, LIP #### [place] [address] Safemaker: Rishabh Mendieta MD Monocytes (Bld) [#/Vol] 0.70 10*3/uL Normal 0.10-1.20 [facility] Comment on above: Performed By: #### L IVP, CDP, BMP, LIP #### [address] [address] Safemaker: Rishabh Mendieta MD Monocytes/100 WBC (Bld) 6 % Normal 3-12 [facility] Comment on above: Performed By: #### L IVP, CDP, BMP, LIP #### [address] [address] Safemaker: Rishabh Mendieta MD Neutrophil (Seg) 60 % Normal 36-65 [facility] Comment on above: Performed By: #### L IVP, CDP, BMP, LIP #### [address] [address] Safemaker: Rishabh Mendieta MD NRBC Automated 0.0 per 100 WBC Normal 0.0 [facility] Comment on above: Performed By: #### L IVP, CDP, BMP, LIP #### [address] [address] Safemaker: Rishabh Mendieta MD Platelet mean volume (Bld) [Entitic vol] 9.8 fL Normal 8.1-13.5 [facility] Comment on above: Performed By: #### L IVP, CDP, BMP, LIP #### [facility] [email or web address] [address] [place] [address] Safemaker: Rishabh Mendieta MD Platelets (Bld) [#/Vol] 315 10*3/uL Normal 138-453 [facility] Comment on above: Performed By: #### L IVP, CDP, BMP, LIP #### [address] [address] Safemaker: Rishabh Mendieta MD RBC (Bld) [#/Vol] 4.65 10*6/uL Normal 3.95-5.11 [facility] Comment on above: Performed By: #### L IVP, CDP, BMP, LIP #### [address] [address] Safemaker: Rishabh Mendieta MD WBC (Bld) [#/Vol] 12.2 10*3/uL High 3.5-11.3 [facility] Comment on above: Performed By: #### L IVP, CDP, BMP, LIP #### [facility] [address] [place] [address] Safemaker: Rishabh Mendieta MD Lipaseon 02-12-2025 Lipase [Catalytic activity/Vol] 86 U/L High 13-60 [facility] Comment on above: Performed By: #### L IVP, CDP, BMP, LIP #### [facility] [address] [place] [address] Safemaker: Rishabh Mendieta MD Liver Profileon 02-12-2025 Albumin [Mass/Vol] 4.1 g/dL Normal 3.5-5.2 [facility] Comment on above: Performed By: #### L IVP, CDP, BMP, LIP #### [facility] [address] [place] [address] Safemaker: Rishabh Mendieta MD Albumin/Glob Ratio 1.3 Normal 1.0-2.5 [facility] Comment on above: Performed By: #### L IVP, CDP, BMP, LIP #### [facility] [address] [place] [address] Safemaker: Rishabh Mendieta MD Alkaline Phos 88 U/L Normal 35-104 [facility] Comment on above: Performed By: #### L IVP, CDP, BMP, LIP #### [facility] [address] [place] [address] Safemaker: Rishabh Mendieta MD ALT [Catalytic activity/Vol] 44 U/L High 10-35 [facility] Comment on above: Performed By: #### L IVP, CDP, BMP, LIP #### [employer] [address] [place] [address] Safemaker: Rishabh Mendieta MD AST [Catalytic activity/Vol] 35 U/L Normal 10-35 [facility] Comment on above: Performed By: #### L IVP, CDP, BMP, LIP #### [employer] [facility] [place] [address] Safemaker: Rishabh Mendieta MD Bilirubin [Mass/Vol] 0.5 mg/dL Normal 0.0-1.2 [facility] Comment on above: Performed By: #### L IVP, CDP, BMP, LIP #### [facility] [address] [place] [address] Safemaker: Rishabh Mendieta MD Bilirubin, Indirect 0.3 mg/dL Normal 0.0-1.0 [facility] Comment on above: Performed By: #### L IVP, CDP, BMP, LIP #### [employer] [address] [place] [address] Safemaker: Rishabh Mendeita MD Bilirubin.indirect [Mass/Vol] 0.2 mg/dL Normal 0.0-0.2 [facility] Comment on above: Performed By: #### L IVP, CDP, BMP, LIP #### [employer] [address] [place] [address] Safemaker: Rishabh Mendieta MD Globulin (S) [Mass/Vol] 3.2 g/dL Normal [facility] Comment on above: Performed By: #### L IVP, CDP, BMP, LIP #### [employer] [address] [place] [address] Safemaker: Rishabh Mendieta MD Protein [Mass/Vol] 7.3 g/dL Normal 6.6-8.7 [facility] Comment on above: Performed By: #### L IVP, CDP, BMP, LIP #### [employer] [address] [place] [address] Safemaker: Rishabh Mendieta MD CBC with Diffon 02-09-2025 Basophils (Bld) [#/Vol] 0.06 10*3/uL [facility] Basophils/100 WBC (Bld) 1 % 0 - 2 % [facility] Eosinophils (Bld) [#/Vol] 0.19 10*3/uL [facility] Eosinophils/100 WBC (Bld) 2 % 1 - 4 % [facility] Erythrocyte distribution width (RBC) [Ratio] 13.2 % 11.8 - 14.4 % [facility] Hematocrit (Bld) [Volume fraction] 42.4 % 36.3 - 47.1 % [facility] Hemoglobin (Bld) [Mass/Vol] 14.3 g/dL 11.9 - 15.1 g/dL [facility] Immature granulocytes (Bld) [#/Vol] 0.05 10*3/uL [facility] Immature granulocytes/100 WBC (Bld) 1 % High 0 [facility] Interpretation and review of laboratory results Abnormal [facility] Lymphocytes/100 WBC (Bld) 35 % 24 - 43 % [facility] Lymphocytes/100 WBC (Bld) 3.77 % High [facility] MCH (RBC) [Entitic mass] 30.2 pg 25.2 - 33.5 pg [facility] MCHC (RBC) [Mass/Vol] 33.7 g/dL 28.4 - 34.8 g/dL [facility] MCV (RBC) [Entitic vol] 89.5 fL 82.6 - 102.9 fL [facility] Monocytes/100 WBC (Bld) 5 % 3 - 12 % [facility] Monocytes/100 WBC (Bld) 0.57 % [facility] Neutrophils/100 WBC (Bld) 56 % 36 - 65 % [facility] Nucleated RBC/100 WBC (Bld) [Ratio] 0 % 0.0 per 100 WBC [facility] Platelet mean volume (Bld) [Entitic vol] 10 fL 8.1 - 13.5 fL [facility] Platelets (Bld) [#/Vol] 284 10*3/uL [facility] RBC (Bld) [#/Vol] 4.74 10*6/uL 3.95 - 5.1 1 m/uL [facility] Segmented neutrophils/100 WBC (Bld) 6.26 % [facility] WBC other (Bld) [#/Vol] 10.9 [facility] Abs. Basophil 0.06 k/uL Normal 0.00-0.20 [facility] Comment on above: Performed By: #### C DP, CP, LIP ####[address] [place] [address] Lab Director: Murtaza Arceo MD Abs.Imm.Granulocyte 0.05 k/uL Normal 0.00-0.30 [facility] Comment on above: Performed By: #### C DP, CP, LIP ####[address] [place] [phone] Lab Director: Murtaza Arceo MD Abs.Neutrophil (Seg) 6.26 k/uL Normal 1.50-8.10 [facility] Comment on above: Performed By: #### C DP, CP, LIP ####[address] [place] [address] Lab Director: Murtaza Arceo MD Basophils/100 WBC (Bld) 1 % Normal 0-2 [facility] Comment on above: Performed By: #### C DP, CP, LIP ####[address] , [facility] Lab Director: Murtaza Arceo MD Eosinophils (Bld) [#/Vol] 0.19 10*3/uL Normal 0.00-0.44 [facility] Comment on above: Performed By: #### C DP, CP, LIP ####[address] [place] [address] Lab Director: Murtaza Arceo MD Eosinophils/100 WBC (Bld) 2 % Normal 1-4 [facility] Comment on above: Performed By: #### C DP, CP, LIP ####[address] [place] [address] Lab Director: Murtaza Arceo MD Erythrocyte distribution width (RBC) [Ratio] 13.2 % Normal 11.8-14.4 [facility] Comment on above: Performed By: #### C DP CP, LIP ####[address] [place] [address] Lab Director: Murtaza Arceo MD Hematocrit (Bld) [Volume fraction] 42.4 % Normal 36.3-47.1 [facility] Comment on above: Performed By: #### C DP CP, LIP ####[address] [place] [address] Lab Director: Murtaza Arceo MD Hemoglobin (Bld) [Mass/Vol] 14.3 g/dL Normal 11.9-15.1 [facility] Comment on above: Performed By: #### C VENKAT CP, LIP ####[address] , [facility] Lab Director: Murtaza Arceo MD Immature granulocytes/100 WBC (Bld) 1 % High 0 [facility] Comment on above: Performed By: #### C ANA ROBLEDO, LIP ####[address] [place] [address] Lab Director: Murtaza Arceo MD Lymphocytes (Bld) [#/Vol] 3.77 10*3/uL High 1.10-3.70 [facility] Comment on above: Performed By: #### C DP CP, LIP ####[address] [place] [address] Lab Director: Murtaza Arceo MD Lymphocytes/100 WBC (Bld) 35 % Normal 24-43 [facility] Comment on above: Performed By: #### C DP, CP, LIP ####[address] [place] [address] Lab Director: Murtaza Arceo MD MCH (RBC) [Entitic mass] 30.2 pg Normal 25.2-33.5 [facility] Comment on above: Performed By: #### C DP CP, LIP ####[address] , [place] [phone] Director: Murtaza Arceo MD MCHC (RBC) [Mass/Vol] 33.7 g/dL Normal 28.4-34.8 [facility] Comment on above: Performed By: #### C DP, CP, LIP ####[address] , [place] [phone] Director: Murtaza Arceo MD MCV (RBC) [Entitic vol] 89.5 fL Normal 82.6-102.9 [facility] Comment on above: Performed By: #### C DP CP, LIP ####[address] [place] [address] Lab Director: Murtaza Arceo MD Monocytes (Bld) [#/Vol] 0.57 10*3/uL Normal 0.10-1.20 [facility] Comment on above: Performed By: #### C VENKAT CP, LIP ####[address] , [place] [phone] Director: Murtaza Arceo MD Monocytes/100 WBC (Bld) 5 % Normal 3-12 [facility] Comment on above: Performed By: #### C DP CP, LIP ####[address] [place] [address] Lab Director: Murtaza Arceo MD Neutrophil (Seg) 56 % Normal 36-65 [facility] Comment on above: Performed By: #### C DP CP, LIP ####[address] , [place] [phone] Lab Director: Murtaza Arceo MD NRBC Automated 0.0 per 100 WBC Normal 0.0 [facility] Comment on above: Performed By: #### C DP, CP, LIP ####[address] [place] [address] Lab Director: Murtaza Arceo MD Platelet mean volume (Bld) [Entitic vol] 10.0 fL Normal 8.1-13.5 [facility] Comment on above: Performed By: #### C DP, CP, LIP ####[address] , [facility]83[facility])[phone] Director: Murtaza Arceo MD Platelets (Bld) [#/Vol] 284 10*3/uL Normal 138-453 [facility] Comment on above: Performed By: #### C DP, CP, LIP ####[address] , [place] 5578883 Lab Director: Murtaza Arceo MD RBC (Bld) [#/Vol] 4.74 10*6/uL Normal 3.95-5.11 [facility] Comment on above: Performed By: #### C DP CP, LIP ####[address] [place] [address] Lab Director: Murtaza Arceo MD WBC (Bld) [#/Vol] 10.9 10*3/uL Normal 3.5-11.3 [facility] Comment on above: Performed By: #### C DP, CP, LIP ####[address] , [facility]83[facility] [place] [facility])[phone] Director: Murtaza Arceo MD [facility] 02-09-2025 Albumin [Mass/Vol] 4.3 g/dL 3.5 - 5.2 g/dL [facility] Albumin/Globulin [Mass ratio] 1.4 {ratio} 1.0 - 2.5 [facility] ALP [Catalytic activity/Vol] 88 U/L 35 - 104 U/L [facility] ALT [Catalytic activity/Vol] 44 U/L High 10 - 35 U/L [facility] Anion gap [Moles/Vol] 14 mmol/L 9 - 16 mmol/L [facility] AST [Catalytic activity/Vol] 41 U/L High 10 - 35 U/L [facility] Bilirubin [Mass/Vol] 0.4 mg/dL 0.00 - 1.20 mg/dL [facility] Calcium [Mass/Vol] 9.8 mg/dL 8.6 - 10. 4 mg/dL [facility] Chloride [Moles/Vol] 101 mmol/L 98 - 10 7 mmol/L [facility] CO2 [Moles/Vol] 25 mmol/L 20 - 31 mmol/L [facility] Creatinine [Mass/Vol] 0.7 mg/dL 0.50 - 0.90 mg/dL [facility] Est, Amarilis Shanks Rate - PINF [facility] Comment on above: These results are not [...] that affects renal tubular secretion. Glucose [Mass/Vol] 172 mg/dL High 74 - 99 mg/dL [facility] Potassium [Moles/Vol] 4.1 mmol/L 3.7 - 5.3 mmol/L [facility] Protein [Mass/Vol] 7.4 g/dL 6.6 - 8.7 g/dL [facility] Sodium [Moles/Vol] 140 mmol/L 136 - 145 mmol/L [facility] Urea nitrogen [Mass/Vol] 15 mg/dL 6 - 20 mg/dL [facility] Urea nitrogen/Creatinine [Mass ratio] 21 mg/mg High 9 - [address] [facility] [address] ABDOMEN PELVIS W IV CONTR [place] 02-09-2025 CT ABDOMEN PELVIS W IV CONTRAST Normal [facility] CT Abdomen and Pelvis W cont rast Maurilio 02-09-2025 No acute process. [facility] RIS CONSOLIDATED EXAMINATION: CT OF THE ABDOMEN AND PELVIS WITH CONTRAST 02/09/2025 7:11 pm TECHNIQUE: CT of the abdomen and pelvis was performed with the administration of intravenous contrast. Multiplanar reformatted images are provided for review. Automated exposure control, iterative reconstruction, and/or weight based adjustment of the mA/kV was utilized to reduce the radiation dose to as low as reasonably achievable. COMPARISON: 06/08/2024 HISTORY: ORDERING SYSTEM PROVIDED HISTORY: abdominal pain TECHNOLOGIST PROVIDED HISTORY: abdominal pain FINDINGS: Lower Chest: Unremarkable. Organs: Liver is normal in contour and enhancement. Gallbladder is not seen. No biliary dilatation. Pancreas, adrenals, kidneys, spleen, vasculature unremarkable. GI/Bowel: Bowel is nondilated without wall thickening. Appendix is normal. Pelvis: Unremarkable. Peritoneum/Retroperito neum: No free air, free fluid, organized fluid collection, lymphadenopathy. Bones/Soft Tissues: No acute bone or soft tissue abnormality. [facility] RIS CONSOLIDATED Charly Wiggins MD - 02/09/2025 EXAMINATION: CT OF THE ABDOMEN AND PELVIS WITH CONTRAST 02/09/2025 7:11 pm TECHNIQUE: CT of the abdomen and pelvis was performed with the administration of intravenous contrast. Multiplanar reformatted images are provided for review. Automated exposure control, iterative reconstruction, and/or weight based adjustment of the mA/kV was utilized to reduce the radiation dose to as low as reasonably achievable. COMPARISON: 06/08/2024 HISTORY: ORDERING SYSTEM PROVIDED HISTORY: abdominal pain TECHNOLOGIST PROVIDED HISTORY: abdominal pain FINDINGS: Lower Chest: Unremarkable. Organs: Liver is normal in contour and enhancement. Gallbladder is not seen. No biliary dilatation. Pancreas, adrenals, kidneys, spleen, vasculature unremarkable. GI/Bowel: Bowel is nondilated without wall thickening. Appendix is normal. Pelvis: Unremarkable. Peritoneum/Retroperito neum: No free air, free fluid, organized fluid collection, lymphadenopathy. Bones/Soft Tissues: No acute bone or soft tissue abnormality. IMPRESSION: No acute process. [facility] Radiology Study observation (narrative) [facility] CT Abdomen and Pelvis W cont rast IVOrdered By: Charly Wiggins on 02-09-2025 [facility] Work Phone: Comp Metabolic Profon 2024 Albumin [Mass/Vol] 4.3 g/dL Normal 3.5-5.2 [facility] Comment on above: Performed By: #### C DP, CP, LIP ####[facility] [place] [address] Lab Director: Murtaza Arceo MD Albumin/Glob Ratio 1.4 Normal 1.0-2.5 [facility] Comment on above: Performed By: #### C DP, CP, LIP ####[address] , [place] [phone] Director: Murtaza Arceo MD Alkaline Phos 88 U/L Normal 35-104 [facility] Comment on above: Performed By: #### C DP, CP, LIP ####[address] [place] [address] Lab Director: Murtaza Arceo MD ALT [Catalytic activity/Vol] 44 U/L High 10-35 [facility] Comment on above: Performed By: #### C DP, CP, LIP ####[address] [place] [address] Lab Director: Murtaza Arceo MD Anion gap [Moles/Vol] 14 mmol/L Normal 9-16 [facility] Comment on above: Performed By: #### C DP, CP, LIP ####[address] [place] [address] Lab Director: Murtaza Arceo MD AST [Catalytic activity/Vol] 41 U/L High 10-35 [facility] Comment on above: Performed By: #### C DP, CP, LIP ####[address] [place] [address] Lab Director: Murtaza Arceo MD Bilirubin [Mass/Vol] 0.4 mg/dL Normal 0.00-1.20 [facility] Comment on above: Performed By: #### C DP, CP, LIP ####[address] [place], [place] [address]83 Lab Director: Murtaza Arceo MD BUN/CRE Ratio 21 High 9-20 [facility] Comment on above: Performed By: #### C DP CP, LIP ####[address] , [place] [phone] lab Director: Murtaza Arceo MD Calcium [Mass/Vol] 9.8 mg/dL Normal 8.6-10.4 [facility] Comment on above: Performed By: #### C DP CP, LIP ####[address] , [place] [phone] Lab Director: Murtaza Arceo MD Chloride [Moles/Vol] 101 mmol/L Normal 98-107 [facility] Comment on above: Performed By: #### C VENKAT CP, LIP ####[address] , [place] [phone] Lab Director: Murtaza Arceo MD CO2 [Moles/Vol] 25 mmol/L Normal 20-31 [facility] Comment on above: Performed By: #### C VENKAT CP, LIP ####[address] , [place] [phone] Lab Director: Murtaza Arceo MD Creatinine [Mass/Vol] 0.7 mg/dL Normal 0.50-0.90 [facility] Comment on above: Performed By: #### C VENKAT CP, LIP ####[address] , [place] [phone] Lab Director: Murtaza Arceo MD GFR/1.73 sq M.predicted among non-blacks MDRD (S/P/Bld) [Vol rate/Area] mL/min/{1.73_m2} Normal >60 [facility] Comment on above: Result Comment: Thes [...] Performed By: #### C ANA ROBLEDO, LIP ####[address] [place] [address] Lab Director: Murtaza Arceo MD Glucose [Mass/Vol] 172 mg/dL High 74-99 [facility] Comment on above: Performed By: #### C VENKAT CP, LIP ####[address] [place] [address] Lab Director: Murtaza Arceo MD Potassium [Moles/Vol] 4.1 mmol/L Normal 3.7-5.3 [facility] Comment on above: Performed By: #### C ANA ROBLEDO, LIP ####[address] , [place] [phone] Director: Murtaza Arceo MD Protein [Mass/Vol] 7.4 g/dL Normal 6.6-8.7 [facility] Comment on above: Performed By: #### C ANA ROBLEDO, LIP ####[address] , [place] [phone] Director: Murtaza Arceo MD Sodium [Moles/Vol] 140 mmol/L Normal 136-145 [facility] Comment on above: Performed By: #### C ANA RBOLEDO, LIP ####[address] [place] [address] Lab Director: Murtaza Arceo MD Urea nitrogen [Mass/Vol] 15 mg/dL Normal 6-20 [facility] Comment on above: Performed By: #### C VENKAT CP, LIP ####[address] [place] [address] Lab Director: Murtaza Arceo MD HCG, ,Urineon 02-09 Beta HCG ( test) Ql (U) Negative Normal NEG [facility] Comment on above: Result Comment: Spec imens with hCG levels near the threshold of the test (25 mIU/mL) may give a negative or indeterminate result. In such cases, another test should be performed with a new specimen in 48-72 hours. If early is suspected clinically in this setting, correlation with quantitative serum b-hCG level is suggested.[facility] has confirmed the use of plasma for this test. This has not been cleared or approved by the U.S. Food and Drug Administration. The FDA has determined that such clearance is not necessary. Performed By: #### U HCG, UAX, UMICAO ####[facility] [place] [address] lab Director: Murtaza Arceo MD Lipaseon 02-09-2025 Lipase [Catalytic activity/Vol] 88 U/L High 13 - 60 U/L [facility] Lipase [Catalytic activity/Vol] 88 U/L High 13-60 [facility] Comment on above: Performed By: #### C DP, CP, LIP ####[facility] [place] [address] lab Director: Murtaza Arceo MD Microscopic Urinalysison Epithelial cells LM.HPF (Urine sed) [#/Area] None [facility] RBC LM.HPF (Urine sed) [#/Area] None [facility] WBC LM.HPF (Urine sed) [#/Area] None [facility] No Panel Informationon 02-09 Interpretation and review of laboratory results Abnormal [facility] , Urineon HCG ( test) Ql (U) Negative NEGATIVE [facility] Comment on above: Specimens with hCG l evels near the threshold of the test (25 mIU/mL) may give a negative or indeterminate result. In such cases, another test should be performed with a new specimen in 48-72 hours. If early is suspected clinically in this setting, correlation with quantitative serum b-hCG level is suggested. [facility] has confirmed the use of plasma for this test. This has not been cleared or approved by the U.S. Food and Drug Administration. The FDA has determined that such clearance is not necessary. Radha [facility] UA w/Reflex Cultureon 2024 Bilirubin, SemiQt,Ur Negative Normal NEG [facility] Comment on above: Performed By: #### U HCG, UAX, UMICAO ####[address] , [place] [phone] Lab Director: Murtaza Arceo MD Blood, Urine Negative Normal NEG [facility] Comment on above: Performed By: #### U HCG, UAX, UMICAO ####[address] [place] [address] Lab Director: Murtaza Arceo MD Clarity (U) Clear Normal CLEAR [facility] Comment on above: Performed By: #### U HCG, UAX, UMICAO ####[address] [place] [address] Lab Director: Murtaza Arceo MD Color (U) Yellow Normal YEL [facility] Comment on above: Performed By: #### U HCG, UAX, UMICAO ####[address] [place] [address] Lab Director: Murtaza Arceo MD Glucose Ql (U) 3+ mg/dL Abnormal NEG [facility] Comment on above: Performed By: #### U HCG, UAX, UMICAO ####[facility] [place] [address] , [place] [phone] Lab Director: Murtaza Arceo MD Ketones Ql (U) Negative Normal NEG [facility] Comment on above: Performed By: #### U HCG, UAX, UMICAO ####[address] , [place] [phone] Lab Director: Murtaza Arceo MD Leukocyte esterase Test strip Ql (U) Negative Normal NEG [facility] Comment on above: Performed By: #### U HCG, UAX, UMICAO ####[facility] [place] [address] Lab Director: Murtaza Arceo MD Nitrite,Ur Negative Normal NEG [facility] Comment on above: Performed By: #### U HCG, UAX, UMICAO ####[address] [place] [address] lab Director: Murtaza Arceo MD PH,Ur 6.0 Normal 5.0-9.0 [facility] Comment on above: Performed By: #### U HCG, UAX, UMICAO ####[address] [place] [address] Lab Director: Murtaza Arceo MD Protein Ql (U) Negative Normal NEG [facility] Comment on above: Performed By: #### U HCG, UAX, UMICAO ####[address] [place] [address] Lab Director: Murtaza Arceo MD Spec. [place],Ur <1.005 Low 1.010-1.020 [facility] Comment on above: Performed By: #### U HCG, UAX, UMICAO ####[address] [place] [address] Lab Director: Murtaza Arceo MD Urobilinogen,Ur Normal Normal 0.0-1.0 [facility] Comment on above: Performed By: #### U HCG, UAX, UMICAO ####[address] , [place] [id number] Lab Director: Murtaza Arceo MD Urinalysis with Reflex to Cu ltureon 02-09-2025 Bilirubin Ql (U) Negative NEGATIVE [facility] Clarity (U) Clear Clear [facility] Color (U) Yellow Yellow [facility] Glucose Test strip (U) [Mass/Vol] 3+ Abnormal NEGATIVE mg/dL [facility] Hemoglobin Auto test strip Ql (U) Negative NEGATIVE [facility] Interpretation and review of laboratory results Abnormal [facility] Ketones (U) [Mass/Vol] Negative NEGAT SIMA mg/dL [facility] Leukocyte esterase Test strip Ql (U) Negative NEGATIVE [facility] Nitrite Ql (U) Negative NEGATIVE [facility] pH (U) 6 [pH] 5.0 - 9.0 [facility] Protein (U) [Mass/Vol] Negative NEGAT SIMA mg/dL [facility] Specific gravity (U) [Rel density] Low 1.010 - 1.020 [facility] Urobilinogen Qn (U) Normal 0.0 - 1. 0 EU/dL [facility] Urinalysis,Microon Epithelial cells LM Ql (Urine sed) None Normal 0-25 [facility] Comment on above: Performed By: #### U HCG, UAX, UMICAO ####[facility] , [id number] lab Director: Murtaza Arceo MD Urine RBC's None Normal 0-2 [facility] Comment on above: Performed By: #### U HCG, UAX, UMICAO ####[facility] , [id number] lab Director: Murtaza Arceo MD Urine WBC's None Normal 0-5 [facility] Comment on above: Performed By: #### U HCG, UAX, UMICAO ####[facility] [place] [address] lab Director: Murtaza Arceo MD BMPon 02-05-2025 Anion gap [Moles/Vol] 15 mmol/L 9 - 16 mmol/L [facility] Calcium [Mass/Vol] 9.5 mg/dL 8.6 - 10. 4 mg/dL [facility] Chloride [Moles/Vol] 105 mmol/L 98 - 10 7 mmol/L [facility] CO2 [Moles/Vol] 22 mmol/L 20 - 31 mmol/L [facility] Creatinine [Mass/Vol] 0.7 mg/dL 0.50 - 0.90 mg/dL [facility] Amarilis Bailey Rate - PINF [facility] Comment on above: These results are not [...] tubular secretion. Glucose [Mass/Vol] 101 mg/dL High 74 - 99 mg/dL [facility] Potassium [Moles/Vol] 3.6 mmol/L Low 3.7 - 5.3 mmol/L [facility] Sodium [Moles/Vol] 142 mmol/L 136 - 145 mmol/L [facility] Urea nitrogen [Mass/Vol] 18 mg/dL 6 - 20 mg/dL [facility] Urea nitrogen/Creatinine [Mass ratio] 26 mg/mg High - [facility] Basic Metabolic Profon 02-05 Anion gap [Moles/Vol] 15 mmol/L Normal -16 [facility] Comment on above: Performed By: #### B CY MARCOS LIVP, CDP ####[facility] [place] [address] lab Director: Murtaza Arceo MD BUN/CRE Ratio 26 High - [facility] Comment on above: Performed By: #### B CY MARCOS, LIVP, CDP ####[facility] [place] [address] lab Director: Murtaza Arceo MD Calcium [Mass/Vol] 9.5 mg/dL Normal 8.6-10.4 [facility] Comment on above: Performed By: #### B MP, LIP, LIVP, CDP ####[facility] [place] [address] Lab Director: Murtaza Arceo MD Chloride [Moles/Vol] 105 mmol/L Normal 98-107 [facility] Comment on above: Performed By: #### B MP, LIP, LIVP, CDP ####[facility] , [place] [id number] lab Director: Murtaza Arceo MD CO2 [Moles/Vol] 22 mmol/L Normal 20-31 [facility] Comment on above: Performed By: #### B MP, LIP, LIVP, CDP ####[facility] [place] [address] lab Director: Murtaza Arceo MD Creatinine [Mass/Vol] 0.7 mg/dL Normal 0.50-0.90 [facility] Comment on above: Performed By: #### B MP, LIP, LIVP, CDP ####[address] [place] [address] lab Director: Murtaza Arceo MD GFR/1.73 sq M.predicted among non-blacks MDRD (S/P/Bld) [Vol rate/Area] mL/min/{1.73_m2} Normal >60 [facility] Comment on above: Result Comment: Thes [...] renal tubular secretion. Performed By: #### B MP, LIP, LIVP, CDP ####[facility] [place] [address] lab Director: Murtaza Arceo MD Glucose [Mass/Vol] 101 mg/dL High 74-99 [facility] Comment on above: Performed By: #### B MP, LIP, LIVP, CDP ####[facility] , [place] 1346383 Lab Director: Murtaza Arceo MD Potassium [Moles/Vol] 3.6 mmol/L Low 3.7-5.3 [facility] Comment on above: Performed By: #### B MP, LIP, LIVP, CDP ####[facility] , [place] [id number] Lab Director: Murtaza Arceo MD Sodium [Moles/Vol] 142 mmol/L Normal 136-145 [facility] Comment on above: Performed By: #### B MP, LIP, LIVP, CDP ####[address] , [place] [id number] Lab Director: Murtaza Arceo MD Urea nitrogen [Mass/Vol] 18 mg/dL Normal 6-20 [facility] Comment on above: Performed By: #### B MP, LIP, LIVP, CDP ####[address] , [place] 5759383 Lab Director: Murtaza Arceo MD CBC with Auto Differentialon 02-05-2025 Basophils (Bld) [#/Vol] 0 10*3/uL [facility] Basophils/100 WBC (Bld) 0 % 0 - 2 % [facility] Eosinophils (Bld) [#/Vol] 0 10*3/uL [facility] Eosinophils/100 WBC (Bld) 0 % Low 1 - 4 % [facility] Erythrocyte distribution width (RBC) [Ratio] 13.1 % 11.8 - 14.4 % [facility] Hematocrit (Bld) [Volume fraction] 42.4 % 36.3 - 47.1 % [facility] Hemoglobin (Bld) [Mass/Vol] 14.4 g/dL 11.9 - 15.1 g/dL [facility] Immature granulocytes (Bld) [#/Vol] 0 10*3/uL [facility] Immature granulocytes/100 WBC (Bld) 0 % 0 [facility] Interpretation and review of laboratory results Abnormal [facility] Lymphocytes/100 WBC (Bld) 36 % 24 - 43 % [facility] Lymphocytes/100 WBC (Bld) 4.5 % High [facility] MCH (RBC) [Entitic mass] 30.3 pg 25.2 - 33.5 pg [facility] MCHC (RBC) [Mass/Vol] 34 g/dL 28.4 - 34.8 g/dL [facility] MCV (RBC) [Entitic vol] 89.1 fL 82.6 - 102.9 fL [facility] Monocytes/100 WBC (Bld) 1 % Low 3 - 12 % [facility] Monocytes/100 WBC (Bld) 0.13 % [facility] Morphology Kenan (Bld) [Interp] Normal Platelet scan shows Normal Platelets [facility] Neutrophils/100 WBC (Bld) 63 % 36 - 65 % [facility] Nucleated RBC/100 WBC (Bld) [Ratio] 0 % 0.0 per 100 WBC [facility] Platelet mean volume (Bld) [Entitic vol] 10.3 fL 8.1 - 13.5 fL [facility] Platelets (Bld) [#/Vol] 327 10*3/uL [facility] RBC (Bld) [#/Vol] 4.76 10*6/uL 3.95 - 5.1 1 m/uL [facility] Segmented neutrophils/100 WBC (Bld) 7.87 % [facility] WBC other (Bld) [#/Vol] 12.5 High [facility] CBC with Diffon 02-05-2025 Abs. Basophil 0.00 k/uL Normal 0.0-0.2 [facility] Comment on above: Performed By: #### B MP, LIP, LIVP, CDP ####[facility] [place] [address] lab Director: Murtaza Arceo MD Abs.Imm.Granulocyte 0.00 k/uL Normal 0.00-0.30 [facility] Comment on above: Performed By: #### B MP, LIP, LIVP, CDP ####[address] [place] [address] Lab Director: Murtaza Arceo MD Abs.Neutrophil (Seg) 7.87 k/uL Normal 1.50-8.10 [facility] Comment on above: Performed By: #### B MP, LIP, LIVP, CDP ####[address] [place] [address] Lab Director: Murtaza Arceo MD Basophils/100 WBC (Bld) 0 % Normal 0-2 [facility] Comment on above: Performed By: #### B MP, LIP, LIVP, CDP ####[address] , [place] [address])[phone] Director: Murtaza Arceo MD Eosinophils (Bld) [#/Vol] 0.00 10*3/uL Normal 0.00-0.44 [facility] Comment on above: Performed By: #### B MP, LIP, LIVP, CDP ####[address] [place] [address] Lab Director: Murtaza Arceo MD Eosinophils/100 WBC (Bld) 0 % Low 1-4 [facility] Comment on above: Performed By: #### B MP, LIP, LIVP, CDP ####[address] [place] [address] Lab Director: Murtaza Arceo MD Immature granulocytes/100 WBC (Bld) 0 % Normal 0 [facility] Comment on above: Performed By: #### B MP, LIP, LIVP, CDP ####[address] , [place] [phone] Lab Director: Murtaza Arceo MD Lymphocytes (Bld) [#/Vol] 4.50 10*3/uL High 1.10-3.70 [facility] Comment on above: Performed By: #### B MP, LIP, LIVP, CDP ####[address] , [place] [phone] Director: Murtaza Arceo MD Lymphocytes/100 WBC (Bld) 36 % Normal 24-43 [facility] Comment on above: Performed By: #### B MP, LIP, LIVP, CDP ####[address] , [place] [phone] Director: Muratza Arceo MD Monocytes (Bld) [#/Vol] 0.13 10*3/uL Normal 0.10-1.20 [facility] Comment on above: Performed By: #### B MP, LIP, LIVP, CDP ####[address] , [place] [phone] Director: Murtaza Arceo MD Monocytes/100 WBC (Bld) 1 % Low 3-12 [facility] Comment on above: Performed By: #### B MP, LIP, LIVP, CDP ####[address] , [place] [phone] Director: Murtaza Arceo MD Morphology Kenan (Bld) [Interp] Normal Normal [facility] Comment on above: Result Comment: Plat elet scan shows Normal Platelets Performed By: #### B MP, LIP, LIVP, CDP ####[address] , [place] [phone] Director: Murtaza Arceo MD Neutrophil (Seg) 63 % Normal 36-65 [facility] Comment on above: Performed By: #### B MP, LIP, LIVP, CDP ####[address] , [place] [phone] Director: Murtaza Arceo MD Erythrocyte distribution width (RBC) [Ratio] 13.1 % Normal 11.8-14.4 [facility] Comment on above: Performed By: #### B MP, LIP, LIVP, CDP ####[address] , [place] 2186183 Lab Director: Murtaza Arceo MD Hematocrit (Bld) [Volume fraction] 42.4 % Normal 36.3-47.1 [facility] Comment on above: Performed By: #### B MP, LIP, LIVP, CDP ####[address] [place] [address] lab Director: Murtaza Arceo MD Hemoglobin (Bld) [Mass/Vol] 14.4 g/dL Normal 11.9-15.1 [facility] Comment on above: Performed By: #### B MP, LIP, LIVP, CDP ####[address] , [id number])[phone] Director: Murtaza Arceo MD MCH (RBC) [Entitic mass] 30.3 pg Normal 25.2-33.5 [facility] Comment on above: Performed By: #### B MP, LIP, LIVP, CDP ####[address] , [place] 9782583 Lab Director: Murtaza Arceo MD MCHC (RBC) [Mass/Vol] 34.0 g/dL Normal 28.4-34.8 [facility] Comment on above: Performed By: #### B MP, LIP, LIVP, CDP ####[address] [place] [address] Lab Director: Murtaza Arceo MD MCV (RBC) [Entitic vol] 89.1 fL Normal 82.6-102.9 [facility] Comment on above: Performed By: #### B MP, LIP, LIVP, CDP ####[address] , [place] 6135983 Lab Director: Murtaza Arceo MD NRBC Automated 0.0 per 100 WBC Normal 0.0 [facility] Comment on above: Performed By: #### B MP, LIP, LIVP, CDP ####[address] , [place] 6349083 Lab Director: Murtaza Arceo MD Platelet mean volume (Bld) [Entitic vol] 10.3 fL Normal 8.1-13.5 [facility] Comment on above: Performed By: #### B MP, LIP, LIVP, CDP ####[address] , [place] 3582583 Lab Director: Murtaza Arceo MD Platelets (Bld) [#/Vol] 327 10*3/uL Normal 138-453 [facility] Comment on above: Performed By: #### B MP, LIP, LIVP, CDP ####[address] , [place] [phone] Director: Murtaza Arceo MD RBC (Bld) [#/Vol] 4.76 10*6/uL Normal 3.95-5.11 [facility] Comment on above: Performed By: #### B MP, LIP, LIVP, CDP ####[address] , [place] [phone] Director: Murtaza Arceo MD WBC (Bld) [#/Vol] 12.5 10*3/uL High 3.5-11.3 [facility] Comment on above: Performed By: #### B MP, LIP, LIVP, CDP ####[address] , [place] [phone] Director: Murtaza Arceo MD Hepatic Function Panelon Albumin [Mass/Vol] 4.2 g/dL 3.5 - 5.2 g/dL [facility] Albumin/Globulin [Mass ratio] 1.4 {ratio} 1.0 - 2.5 [facility] ALP [Catalytic activity/Vol] 76 U/L 35 - 104 U/L [facility] ALT [Catalytic activity/Vol] 38 U/L High 10 - 35 U/L [facility] AST [Catalytic activity/Vol] 37 U/L High 10 - 35 U/L [facility] Bilirubin [Mass/Vol] 0.5 mg/dL 0.00 - 1.20 mg/dL [facility] Bilirubin.direct [Mass/Vol] mg/dL 0.00 - 0.30 mg/dL [facility] Bilirubin.indirect [Mass/Vol] Can not be calculated 0.0 - 1.0 mg/dL [facility] Protein [Mass/Vol] 7.2 g/dL 6.6 - 8.7 g/dL [facility] Lipaseon 02-05-2025 Lipase [Catalytic activity/Vol] 64 U/L High 13 - 60 U/L [facility] Lipase [Catalytic activity/Vol] 64 U/L High 13-60 [facility] Comment on above: Performed By: #### B MP, LIP, LIVP, CDP ####[address] , [place] 1144783 lab Director: Murtaza Arceo MD Liver Profileon 02-05-2025 Albumin [Mass/Vol] 4.2 g/dL Normal 3.5-5.2 [facility] Comment on above: Performed By: #### B MP, LIP, LIVP, CDP ####[address] , [place] [phone] lab Director: Murtaza Arceo MD Albumin/Glob Ratio 1.4 Normal 1.0-2.5 [facility] Comment on above: Performed By: #### B MP, LIP, LIVP, CDP ####[address] , [place] 1124083 lab Director: Murtaza Arceo MD Alkaline Phos 76 U/L Normal 35-104 [facility] Comment on above: Performed By: #### B MP, LIP, LIVP, CDP ####[address] , [place] 4798083 Lab Director: Murtaza Arceo MD ALT [Catalytic activity/Vol] 38 U/L [address] Comment on above: Performed By: #### B MP, LIP, LIVP, CDP ####[address] [place] [address] Lab Director: Murtaza Arceo MD AST [Catalytic activity/Vol] 37 U/L [facility] [address] Comment on above: Performed By: #### B MP, LIP, LIVP, CDP ####[address] , [place] 4054983 Lab Director: Murtaza Arceo MD Bilirubin [Mass/Vol] 0.5 mg/dL Normal 0.00-1.20 [facility] Comment on above: Performed By: #### B MP, LIP, LIVP, CDP ####[address] [place] [address] Lab Director: Murtaza Arceo MD Bilirubin, Indirect Can not be calculated Normal 0.0-1 .0 [facility] Comment on above: Performed By: #### B MP, LIP, LIVP, CDP ####[address] , [place] 3737683 Lab Director: Murtaza Arceo MD Bilirubin.indirect [Mass/Vol] mg/dL Normal 0.00-0.30 [facility] Comment on above: Performed By: #### B MP, LIP, LIVP, CDP ####[address] , [place] 1319583 Lab Director: Murtaza Arceo MD Protein [Mass/Vol] 7.2 g/dL Normal 6.6-8.7 [facility] Comment on above: Performed By: #### B MP, LIP, LIVP, CDP ####[address] [place] [address] lab Director: Murtaza Arceo MD No Panel Informationon 02-05 Interpretation and review of laboratory results Abnormal [facility] .UA Microscp Aon 02-01-2025 UA RBC Quant 0 /HPF Normal 0-5 [facility] Comment on above: Performed By: #### . Automated Diff #### [facility] [address] [place] [address] UA Squepi Cells Quant <1 Normal 0-29 [facility] Comment on above: Performed By: #### . Automated Diff #### [facility] [address] [place] [address] UA WBC Quant 0 /HPF Normal 0-5 [facility] Comment on above: Performed By: #### . Automated Diff #### [address] [address] .eGFRon 02-01-2025 GFR/1.73 sq M.predicted MDRD (S/P/Bld) [Vol rate/Area] mL/min/{1.73_m2} Normal >=60 [facility] Comment on above: Result Comment: [facility] Laboratories have implemented the eGFR calculation [...] = years Performed By: #### E GFR #### [address] [address] Basic Metabolic Profileon Anion gap [Moles/Vol] 7 mmol/L Normal 4-12 [facility] Comment on above: Performed By: #### . Urinalysis Microscopic Auto #### [address] [address] BUN Crea Ratio 18.3 ratio Normal 10.0-20.0 [facility] Comment on above: Performed By: #### . Urinalysis Microscopic Auto #### [address] [address] Calcium [Mass/Vol] 9.0 mg/dL Normal 8.6-10.3 [facility] Comment on above: Performed By: #### . Urinalysis Microscopic Auto #### [address] [address] Chloride [Moles/Vol] 104 mmol/L Normal 98-110 [facility] Comment on above: Performed By: #### . Urinalysis Microscopic Auto #### [address] [address] CO2 [Moles/Vol] 25 mmol/L Normal 22-32 [facility] Comment on above: Performed By: #### . Urinalysis Microscopic Auto #### [address] [address] Creatinine [Mass/Vol] 0.82 mg/dL Normal 0.44-1.03 [facility] Comment on above: Performed By: #### . Urinalysis Microscopic Auto #### [address] [address] Glucose [Mass/Vol] 177 mg/dL High 70-99 [facility] Comment on above: Performed By: #### . Urinalysis Microscopic Auto #### [address] [address] Potassium [Moles/Vol] 4.4 mmol/L Normal 3.4-4.8 [facility] Comment on above: Performed By: #### . Urinalysis Microscopic Auto #### [place] [id number] Sodium [Moles/Vol] 136 mmol/L Normal 133-142 [facility] Comment on above: Performed By: #### . Urinalysis Microscopic Auto #### [place] [id number] Urea nitrogen [Mass/Vol] 15 mg/dL Normal 8-26 [facility] Comment on above: Performed By: #### . Urinalysis Microscopic Auto #### [place] [id number] CBC w/ Diffon 02-01-2025 Erythrocyte distribution width (RBC) [Ratio] 13.9 % Normal 11.6-14.8 [facility] Comment on above: Performed By: #### . Automated Diff #### [place] [address] Hematocrit (Bld) [Volume fraction] 40.8 % Normal 36.0-46.0 [facility] Comment on above: Performed By: #### . Automated Diff #### [place] [id number] Hemoglobin (Bld) [Mass/Vol] 13.7 g/dL Normal 12.0-16.0 [facility] Comment on above: Performed By: #### . Automated Diff #### [place] [id number] MCH (RBC) [Entitic mass] 29.9 pg Normal 27.0-35.0 [facility] Comment on above: Performed By: #### . Automated Diff #### [place] [id number] MCHC 33.6 % Normal 31.0-37.0 [facility] Comment on above: Performed By: #### . Automated Diff #### [place] [id number] MCV (RBC) [Entitic vol] 88.9 fL Normal 80.0-100.0 [facility] Comment on above: Performed By: #### . Automated Diff #### [address] [address] Platelet 285 x10*3/mcL Normal 150-450 [facility] Comment on above: Performed By: #### . Automated Diff #### [address] [address] Platelet mean volume (Bld) [Entitic vol] 8.6 fL Normal 6.7-10.6 [facility] Comment on above: Performed By: #### . Automated Diff #### [address] [address] RBC 4.59 x10*6/mcL Normal 3.80-5.20 [facility] Comment on above: Performed By: #### . Automated Diff #### [address] [address] WBC 9.2 x10*3/mcL Normal 4.5-11.0 [facility] Comment on above: Performed By: #### . Automated Diff #### [address] [address] Diff Autoon 02-01-2025 Baso Absolute 0.0 x10*3/mcL Normal 0.0-0.2 [facility] Comment on above: Performed By: #### C BC #### [address] [address] Basophils/100 WBC (Bld) 0.5 % Normal 0.0-1.5 [facility] Comment on above: Performed By: #### C BC #### [address] [address] Eos Absolute 0.2 x10*3/mcL Normal 0.0-0.4 [facility] Comment on above: Performed By: #### C BC #### [address] [address] Eosinophils/100 WBC (Bld) 2.4 % Normal 0.0-5.4 [facility] Comment on above: Performed By: #### C BC #### [address] [address] Lymph Absolute 3.1 x10*3/mcL Normal 1.0-4.8 [facility] Comment on above: Performed By: #### C BC #### [address] [address] Lymphocytes/100 WBC (Bld) 33.3 % Normal 27.2-40.8 [facility] Comment on above: Performed By: #### C BC #### [address] [address] [place] Absolute 0.6 x10*3/mcL Normal 0.1-1.1 [facility] Comment on above: Performed By: #### C BC #### [address] [address] Monocytes/100 WBC (Bld) 6.7 % Normal 3.7-11.9 [facility] Comment on above: Performed By: #### C BC #### [address] [address] Neutro Absolute 5.2 x10*3/mcL Normal 1.8-7.7 [facility] Comment on above: Performed By: #### C BC #### [address] [address] Neutro Auto 57.1 % Normal 47.2-70.8 [facility] Comment on above: Performed By: #### C BC #### [address] [address] ED Clinical Summaryon 2024 ED Clinical Summary [address] [address] ED Clinical Summary Person Information Name: Gael Ruby/[facility] Age: 29 Years : 1995 Sex: Female PCP: Chantel GREWAL, Yossi Paz Marital Status: Phone: Race: White Ethnicity: Not or Language: Somali Visit Reason: Abdominal pain; abdominal pain Acuity: 3 Enc Type: Emergency Med Service: Emergency Medicine Arrival: 02/01/2025 07:30:49 Discharge: 02/01/2025 11:41:00 LOS: 000 04:11 Checkin: 02/01/2025 07:30:49 Checkout: 02/01/2025 11:41:00 Dispo Type: Home or Self Care Address: [address] [place] [id number] Provider Notes: Diagnosis: Abdominal pain Problems Active Gastroparesis Type 2 diabetes mellitus PCOS- polycystic ovary syndrome HSV Depression Bladder disorder Back pain Asthma Anxiety ADD Maternal tobacco use (12/20/2017) Body mass index 30+ - obesity (12/20/2017) Gestational diabetes mellitus, class A>1< (12/20/2017) Group B streptococcus Smoking Status: Smoking Status 10 or more cigarettes (1/2 pack or more)/day in last 30 days Functional Status: Sensory Deficits: History of Falls: Mobility Assistance Prior to Admission: ADLs: Current Level of Assistance for Self-Care/Mobility: Cognitive Status: Allergies Latex (Rash) (Hives) penicillin (Hives) (Itchy) (Nausea) Pyridium (Anxiety increase) Toradol (Hives) (Shortness of breath) (Itchy) egg-containing compound (Nausea) traMADol (Nausea) Laboratory or Other Results This Visit (last charted value for your 02/01/2025 visit) Hematology 02/01/2025 8:19 AM WBC: 9.2 x10 RBC: 4.59 x10 Neutro Auto: 57.1 % -- Normal range between ( 47.2 and 70.8 ) Lymph Auto: 33.3 % -- Normal range between ( 27.2 and 40.8 ) [place] Auto: 6.7 % -- Normal range between ( 3.7 and 11.9 ) Eos Auto: 2.4 % -- Normal range between ( 0.0 and 5.4 ) Basophil Auto: 0.5 % -- Normal range between ( 0.0 and 1.5 ) Baso Absolute: 0.0 x10 MCV: 88.9 fL -- Normal range between ( 80.0 and 100.0 ) MCHC: 33.6 % -- Normal range between ( 31.0 and 37.0 ) Lymph Absolute: 3.1 x10 Hct: 40.8 % -- Normal range between ( 36.0 and 46.0 ) [place] Absolute: 0.6 x10 MCH: 29.9 pg -- Normal range between ( 27.0 and 35.0 ) Neutro Absolute: 5.2 x10 Hgb: 13.7 g/dL -- Normal range between ( 12.0 and 16.0 ) Mean Platelet Volume: 8.6 fL -- Normal range between ( 6.7 and 10.6 ) Platelet: 285 x10 Eos Absolute: 0.2 x10 RDW: 13.9 % -- Normal range between ( 11.6 and 14.8 ) Coagulation 02/01/2025 8:19 AM PT: 12.2 seconds -- Normal range between ( 10.2 and 12.9 ) INR: 1.0 ratio PTT: 28.8 seconds -- Normal range between ( 25.1 and 36.5 ) Urinalysis 02/01/2025 9:31 AM UA Color: Colorless UA Urobilinogen: Normal mg/dL UA Bili: Negative UA Ketones: Negative mg/dL UA Leukocyte Esterase: Negative UA Nitrite: Negative UA Glucose: >1000 mg/dL UA Protein: Negative mg/dL UA Blood: Negative UA Spec Grav: 1.015 -- Normal range between ( 1.003 and 1.035 ) UA pH: 7.0 UA Clarity: Clear UA Source: Clean Catch UA WBC Quant: 0 /HPF -- Normal range between ( 0 and 5 ) UA RBC Quant: 0 /HPF -- Normal range between ( 0 and 5 ) UA Squepi Cells Quant: <1 /HPF -- Normal range between ( 0 and 29 ) Chemistry 02/01/2025 8:19 AM Creatinine Lvl: 0.82 mg/dL -- Normal range between ( 0.44 and 1.03 ) BUN: 15 mg/dL -- Normal range between ( 8 and 26 ) Glucose Lvl: 177 mg/dL -- Normal range between ( 70 and 99 ) Potassium Lvl: 4.4 mmol/L -- Normal range between ( 3.4 and 4.8 ) Sodium Lvl: 136 mmol/L -- Normal range between ( 133 and 142 ) Calcium Lvl: 9.0 mg/dL -- Normal range between ( 8.6 and 10.3 ) Magnesium Lvl: 2.2 mg/dL -- Normal range between ( 1.7 and 2.4 ) Chloride: 104 mmol/L -- Normal range between ( 98 and 110 ) CO2: 25 mmol/L -- Normal range between ( 22 and 32 ) Anion Gap: 7 -- Normal range between ( 4 and 12 ) Estimated GFR: >60 mL/min/1.73m? BUN Crea Ratio: 18.3 ratio -- Normal range between ( 10.0 and 20.0 ) 02/01/2025 8:16 AM Lipase Lvl: 47 IU/L -- Normal range between ( 22 and 51 ) Lactic Acid Lvl: 1.3 mmol/L -- Normal range between ( 0.5 and 2.0 ) Computed Tomography 02/01/2025 10:[address] Abdomen Pelvis w/ IV Contrast: CT Abdomen Pelvis w/ IV Contrast Measurements: Height: Weight: 113 kg Blood Pressure: /61 mmHg BMI: Procedures No Procedures Documented Immunizations No Immunizations Documented This Visit Final Med List: Medications that have not changed Other Medications albuterol (albuterol 90 mcg/inh inhalation aerosol) 2 Puffs Inhale (breathe in) every 6 hours as needed as needed for wheezing. Last Dose: ___ atorvastatin (atorvastatin 40 mg oral tablet) 30 tabs, 0 Refill(s). Last Dose: ___ azithromycin (azithromycin 250 mg oral tablet) 6 tabs, 0 Refill (more content not included)... Normal [facility] ED Note-Nursingon 02-01-2025 ED Note-Nursing GI consulted DR. Sanches regarding CT results Electronically signed by Adela Villarreal 02/01/25 11:25 EDT Normal [facility] ED Note-Nursing PT decided she wante d to do CT scan after refusing it to Dr. Mondragon. Order put back in and discharge on hold pending CT results Electronically signed by Adela Villarreal R 02/01/25 10:27 EDT Normal [facility] ED Note-Nursing Pt request something for pain/ Dr. Mondragon notified Electronically signed by Adela Villarreal 02/01/25 08:30 EDT Normal [facility] ED Note-Physicianon 02-02-20 ED Note-Physician Chief Complaint Abdominal pain started last night. Tylenol taken last night around 1900. Vitals & Measurements T: 36.8 ?C (Oral) HR: 76 (Peripheral) RR: 16 BP: 117/83 SpO2: 96% HT: 172.7 cm WT: 113 kg (Dosing) Additional Vitals No qualifying data available. Procedure No qualifying data available. ASA Documentation Medical Decision Making This is a 29-year-old seen today chief complaint of abdominal pain. Patient states last night pain. Patient has a history of gastroparesis. Feels like it is somewhat attack today. 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 Patient is otherwise alert oriented appropriate stable had a recent visit here. Patient states pain is similar. Like her usual gastrophrenic pain. Patient denies any other associative symptomatology at this time. Ten pertinent systems reviewed and are negative other than stated in the HPI. Nursing notes reviewed. Past medical, surgical, family and social history as well as medication reconciliation as noted by the nursing staff at time of documentation is noted other than stated above in the history of present illness CONSTITUTIONAL: [well appearing in no acute distress] SKIN: [Warm, dry, and intact without rash] [...] deformities, atraumatic] PSYCHIATRIC: [normal mood and affect] Workup and evaluation this The patient is otherwise alert, Orner, appropriate acute distress and denies any other sows or concerns. Assessment/Plan Abdominal pain Abdominal pain (Complaint of) Orders: Discharge Patient Refresh vitals and sections below: Problem List/Past Medical History Ongoing ADD Anxiety Asthma Back pain Bladder disorder Body mass index 30+ - obesity Depression Gastroparesis Gestational diabetes mellitus, class A>1< Group B streptococcus HSV Maternal tobacco use PCOS- polycystic ovary syndrome Type 2 diabetes mellitus Historical Gestational diabetes Miscarriage MRSA Ovarian cyst Procedure/Surgical History Dilation and curettage D&C - Dilatation and curettage Removal of remaining ovary Anastomosis of gall bladder Laparoscopic excision of pelvic endometriosis Surgical removal of wisdom tooth Caesarean section Local anaesthetic infiltration of tear duct [place] Tooth extraction (2009) Oopherectomy (06/2010) Tonsillectomy and adenoidectomy (02/2011) Eye Surgery (12/15/2011) Cystoscopy (07/22/2012) Diagnostic Laparoscopy (07/22/2012) (03/22/2016) Laparoscopic cholecystectomy (03/29/2017) delivery only; (12/20/2017) Section (12/20/2017) (05/22/2020) Dilation and Curettage (03/20/2021) Vaginal Hysterectomy (11/12/2022) Medications Inpatient Omnipaque 350, 100 mL, IV Contrast, Once Home 4mm insulin pen needles, See Instructions, 11 refills, 5 times daily insulin injections albuterol 90 mcg/inh inhalation aerosol, 2 puffs, Inhale, q6hr, PRN atorvastatin 40 mg oral tablet, 30 tabs, 0 Refill(s) azithromycin 250 mg oral tablet, 6 tabs, 0 Refill(s) clindamycin 300 mg oral capsule, 300 mg= 1 caps, Oral, q6hr dicyclomine 10 mg oral capsule, 40 caps, 0 Refill(s) diphenhydrAMINE 12.5 mg/5 mL oral liquid, 40 mL, 0 Refill(s) docusate sodium 100 mg oral capsule, 20 caps, 0 Refill(s) fluconazole 150 mg oral tablet, 10 unknown unit, 0 Refill(s) FLUoxetine 40 mg oral capsule, 30 caps, 0 Refill(s) gabapentin 100 mg oral capsule, 100 mg= 1 caps, Oral, BID Gimoti 15 mg/actuation nasal spray, 9 mL, 0 Refill(s), USE 1 SPRAY IN ONE NOSTRIL 4 TIMES PER DAY 30 MINUTES BEFORE MEALS AND AT BEDTIME glipiZIDE 10 mg oral tablet, 10 mg= 1 tabs, Oral, BID, 3 refills Glucometer, See Instructions, whatever brand insurance covers Glucometer, Test Strips, lancets, See Instructions, 11 refills, GLucometer, test strips and lancets for backup, twice daily checks, on insulin HumaLOG KwikPen 100 units/mL injectable solution, See Instructions, 11 refills, correction dose ACHS 2-8units, MAX dose 50u/day hydrocodone-acetaminop hen 5 mg-325 mg oral tablet, 28 tabs, 0 Refill(s) hydrOXYzine hydrochloride 25 mg oral tablet, 25 mg= 1 tabs, Oral, TID, PRN hydrOXYzine pamoate 25 mg oral capsule, 30 caps, 0 Refill(s) hyoscyamine 0.125 mg sublingual tablet, 0.125 mg= 1 tabs, SL, q4hr, PRN Januvia 100 mg oral tablet, 100 mg= 1 tabs, Oral, Daily, 3 refills Jardiance 10 mg oral tablet, 10 mg= 1 tabs, Oral, qAM, 3 refills ketoconazole 2% topic (more content not included)... Normal [facility] Lactic Acid, Randomon 2024 Lactic Acid Lvl 1.3 mmol/L Normal 0.5-2.0 [facility] Comment on above: Performed By: #### . Urinalysis Microscopic Auto #### [facility] [address] [place] [address] Lipaseon 02-01-2025 Lipase Lvl 47 IU/L Normal 22-51 [facility] Comment on above: Performed By: #### . Automated Diff #### [address] [id number] [place] [address] Magnesiumon 02-01-2025 Magnesium [Mass/Vol] 2.2 mg/dL Normal 1.7-2.4 [facility] Comment on above: Performed By: #### . Urinalysis Microscopic Auto #### [address] [address] POC Glucose Randomon 025 Glucose [Mass/Vol] 187 mg/dL High 70-99 [facility] Comment on above: Performed By: #### C BC #### [address] [address] PTon 02-01-2025 INR Coag (PPP) [Relative time] 1.0 {INR} Normal <=3.5 [facility] Comment on above: Result Comment: INR has no normal range. INR Therapeutic range is: 2.0-3.0 (AF, CVA, TIAs, DVT prophylaxis, acute DVT) 2.5-3.5 [facility]/emboli) Performed By: #### P TINR #### [address] [address] PT Coag (PPP) [Time] 12.2 s Normal 10.2-12.9 [facility] Comment on above: Performed By: #### P TINR #### [address] [address] PTTon 02-01-2025 aPTT Coag (Bld) [Time] 28.8 s Normal 25.1-36.5 [facility] Comment on above: Performed By: #### . Urinalysis Microscopic Auto #### [address] [address] UA w Culture if Indon 2024 Color (U) Colorless Normal Yellow [facility] Comment on above: Performed By: #### . Urinalysis Microscopic Auto #### [address] [address] Glucose (U) [Mass/Vol] mg/dL Abnormal Negative Bl [facility] Comment on above: Performed By: #### . Urinalysis Microscopic Auto #### [address] [address] Ketones Ql (U) Negative Normal Negative [facility] Comment on above: Performed By: #### . Urinalysis Microscopic Auto #### [place] [id number] UA Blood Negative Normal Negative [facility] Comment on above: Performed By: #### . Urinalysis Microscopic Auto #### [place] [address] UA Clarity Clear Normal Clear [facility] Comment on above: Performed By: #### . Urinalysis Microscopic Auto #### [place] [address] UA Leukocyte Esterase Negative Normal Negative [facility] Comment on above: Performed By: #### . Urinalysis Microscopic Auto #### [place] [address] UA Nitrite Negative Normal Negative [facility] Comment on above: Performed By: #### . Urinalysis Microscopic Auto #### [place] [address] UA pH 7.0 Normal 4.5 - 7.8 [facility] Comment on above: Performed By: #### . Urinalysis Microscopic Auto #### [place] [address] UA Protein Negative Normal Negative [facility] Comment on above: Performed By: #### . Urinalysis Microscopic Auto #### [place] [address] UA Source Clean Catch Normal [facility] Comment on above: Performed By: #### . Urinalysis Microscopic Auto #### [place] [address] UA Spec Grav 1.015 Normal 1.003-1.035 [facility] Comment on above: Performed By: #### . Urinalysis Microscopic Auto #### [place] [address] UA Urobilinogen Normal Normal 0.2 - 1.0 [facility] Comment on above: Performed By: #### . Urinalysis Microscopic Auto #### [facility] [address] [place] [address] Urobilinogen (U) [Mass/Vol] Negative Normal Negative [facility] Comment on above: Performed By: #### . Urinalysis Microscopic Auto #### [facility] [address] [place] [address] B hCG Qualon 01-26-2025 Beta HCG ( test) Ql Negative Normal [facility] Comment on above: Performed By: #### 2 [id number] #### [facility] [address] [place] [address] BMPon 01-26-2025 CO2 [Moles/Vol] 24 mmol/L Normal 21-31 [facility] Comment on above: Performed By: #### 2 [id number] #### [facility] [address] [place] [address] Anion gap [Moles/Vol] 13 mmol/L Normal 6-16 [facility] Comment on above: Performed By: #### 2 [id number] #### [facility] [address] [place] [address] Calcium [Mass/Vol] 9.1 mg/dL Normal 8.9-11.1 [facility] Comment on above: Performed By: #### 2 [id number] #### [facility] [address] [place] [address] Chloride [Moles/Vol] 101 mmol/L Normal 101-111 [facility] Comment on above: Performed By: #### 2 [id number] #### [facility] [address] [place] [address] Creatinine [Mass/Vol] 0.8 mg/dL Normal 0.5-1.3 [facility] Comment on above: Performed By: #### 2 [id number] #### [facility] [address] [place] [address] Glucose [Mass/Vol] 277 mg/dL High 55-199 [facility] Comment on above: Performed By: #### 2 [id number] #### [facility] [address] [place] [address] Potassium [Moles/Vol] 3.4 mmol/L Low 3.5-5.3 [facility] Comment on above: Performed By: #### 2 [id number] #### [facility] [address] [place] [address] Sodium [Moles/Vol] 135 mmol/L Normal 135-145 [facility] Comment on above: Performed By: #### 2 [id number] #### [facility] [address] [place] [address] Urea nitrogen [Mass/Vol] 12 mg/dL Normal 5-21 [facility] Comment on above: Performed By: #### 2 [id number] #### [facility] [address] [place] [address] Urea nitrogen/Creatinine [Mass ratio] 15 No Units Normal 10-20 [facility] Comment on above: Performed By: #### 2 [id number] #### [facility] [address] [place] [address] CBC w/ Auto Diffon 5 Basophils/100 WBC (Bld) 0.7 % Normal 0.0-2.0 [facility] Comment on above: Performed By: #### 2 [id number] #### [facility] [address] [place] [address] Basophils/Leukocytes Auto (Bld) [Pure # fraction] 0.1 E9/L Normal 0.0-0.2 [facility] Comment on above: Performed By: #### 2 [id number] #### [facility] [address] [place] [address] Eosinophils (Bld) [#/Vol] 0.2 E9/L Normal 0.0-0.5 [facility] Comment on above: Performed By: #### 2 [id number] #### [facility] [address] [place] [address] Eosinophils/100 WBC (Bld) 1.8 % Normal 0.0-8.0 [facility] Comment on above: Performed By: #### 2 [id number] #### [facility] [address] [place] [address] Erythrocyte distribution width (RBC) [Ratio] 14.0 % Normal 10.9-14.2 [facility] Comment on above: Performed By: #### 2 [id number] #### [facility] [address] [place] [address] Hematocrit (Bld) [Volume fraction] 41.8 % Normal 34.0-46.0 [facility] Comment on above: Performed By: #### 2 [id number] #### [facility] [address] [place] [address] Hemoglobin (Bld) [Mass/Vol] 14.5 g/dL Normal 12.0-16.0 [facility] Comment on above: Performed By: #### 2 [id number] #### [facility] [address] [place] [address] Lymphocytes (Bld) [#/Vol] 4.8 E9/L High 1.0-4.0 [facility] Comment on above: Performed By: #### 2 [id number] #### [facility] [address] [place] [address] Lymphocytes/100 WBC (Bld) 37.0 % Normal 14.0-50.0 [facility] Comment on above: Performed By: #### 2 [id number] #### [facility] [address] [place] [address] MCH (RBC) [Entitic mass] 30.5 pg Normal 27.0-34.0 [facility] Comment on above: Performed By: #### 2 [id number] #### [facility] [address] [place] [address] MCHC (RBC) [Mass/Vol] 34.8 g/dL Normal 31.4-36.0 [facility] Comment on above: Performed By: #### 2 [id number] #### [facility] [address] [place] [address] MCV (RBC) [Entitic vol] 87.6 fL Normal 80.0-100.0 [facility] Comment on above: Performed By: #### 2 [id number] #### [facility] [address] [place] [address] Monocytes (Bld) [#/Vol] 0.6 E9/L Normal 0.2-1.0 [facility] Comment on above: Performed By: #### 2 [id number] #### [facility] [address] [place] [address] Neutrophils (Bld) [#/Vol] 7.1 E9/L Normal 2.0-7.5 [facility] Comment on above: Performed By: #### 2 [id number] #### [facility] [address] [place] [address] Neutrophils/100 WBC (Bld) 55.5 % Normal 36.0-75.0 [facility] Comment on above: Performed By: #### 2 [id number] #### [facility] [address] [place] [address] Platelet mean volume (Bld) [Entitic vol] 8.6 fL Normal 6.4-10.8 [facility] Comment on above: Performed By: #### 2 [id number] #### [facility] [address] [place] [address] Platelets (Bld) [#/Vol] 291.0 E9/L Normal 150.0-500.0 [facility] Comment on above: Performed By: #### 2 [id number] #### [facility] [address] [place] [address] RBC (Bld) [#/Vol] 4.8 E12/L Normal 4.3-5.9 [facility] Comment on above: Performed By: #### 2 [id number] #### [facility] [address] [place] [address] WBC corrected for nucl RBC Auto (Bld) [#/Vol] 12.9 E9/L High 4.0-11.0 [facility] Comment on above: Performed By: #### 2 [id number] #### [facility] [address] [place] [address] CHEMISTRYOrdered By: SYSTEM SYSTEM on 01-26-2025 Albumin [Mass/Vol] 4.2 g/dL Normal 3.3 - 5.0 gm/dL Remisol Chem Albumin/Globulin [Mass ratio] 1.5 {ratio} Normal 1.1 - 2.2 [facility] ALP [Catalytic activity/Vol] 66 [iU]/d Normal 21 - 98 Int._Unit/L [facility] Chem ALT No additional P-5'-P [Catalytic activity/Vol] 32 [iU]/d Normal 6 - 46 Int._Unit/L [facility] Anion gap [Moles/Vol] 13 mmol/L Normal 6 - 16 mEq/L [facility] AST [Catalytic activity/Vol] 25 [iU]/d Normal 5 - 43 Int._Unit/L [facility] Bilirubin [Mass/Vol] 0.8 mg/dL Normal 0.0 - 1 .1 mg/dL [facility] Bilirubin.direct [Mass/Vol] 0.1 mg/dL Normal 0.0 - 0.4 mg/dL [facility] Bilirubin.indirect [Mass or moles/Vol] 0.7 mg/dL Normal 0.1 - 0.9 mg/dL [facility] Calcium [Mass/Vol] 9.1 mg/dL Normal 8.9 - 11. 1 mg/dL [facility] Chloride [Moles/Vol] 101 mmol/L Normal 101 - 1 11 mmol/L [facility] Creatinine [Mass/Vol] 0.8 mg/dL Normal 0.5 - 1.3 mg/dL [facility] eGFR 101 mL/min/1.73 m2 Normal >=59mL/mi n/ 1.73 m2 [facility] Globulin (S) [Mass/Vol] 2.8 g/dL Normal 1.4 - 4.0 gm/dL [facility] Glucose [Mass/Vol] 277 mg/dL High 55 - 199 mg/dL [facility] Lipase [Catalytic activity/Vol] 61 U/L High 13 - 58 unit/L [facility] Potassium [Moles/Vol] 3.4 mmol/L Low 3.5 - 5.3 mmol/L [facility] Protein [Mass/Vol] 7.0 g/dL Normal 6.0 - 7.8 gm/dL [facility] Sodium [Moles/Vol] 135 mmol/L Normal 135 - 145 mmol/L [facility] Urea nitrogen [Mass/Vol] 12 mg/dL Normal 5 - 21 mg/dL [facility] Urea nitrogen/Creatinine [Mass ratio] 15 mg/mg Normal 10 - 20 [facility] CHEMISTRYOrdered By: Nehal Toscano on 01-26-2025 CO2 [Moles/Vol] 24 mmol/L Normal 21 - 31 mmol/L [facility] Chem S ED Clinical Summaryon 2024 ED Clinical Summary ED Clinical Summary [place] [id number] ED Clinical Summary Person Information Name: GAEL RUBY/[facility] Age: 29 Years : 1995 Sex: Female Language: Somali PCP: YOSSI GOLDEN MD Marital Status: MRN: [id number] Visit Id: Visit Reason: Medical problem - minor; Nausea; Abdominal pain; ABD PAIN, NAUSEA Speciality: Acuity: 3 Enc Type: Emergency Med Service: Emergency Arrival: 01/26/2025 00:57:34 Discharge: 01/26/2025 03:38:32 LOS: 000 02:41 Checkin: 01/26/2025 00:57:34 Checkout: 01/26/2025 03:38:32 Dispo Type: Home (Routine DC) EVENTS: Event Name Event Status Request Date/Time Start Date/Time Complete Date/Time Arrive Complete 01/26/2025 00:57:34 01/26/2025 00:57:34 01/26/2025 00:57:34 Document Home Meds Request 01/26/2025 00:57:34 Triage Complete 01/26/2025 00:57:34 01/26/2025 01:08:45 01/26/2025 01:08:45 Registration Complete 01/26/2025 01:00:35 01/26/2025 01:00:35 01/26/2025 01:00:35 Reg Complete Request 01/26/2025 01:00:35 Reg Bed Request Complete 01/26/2025 01:00:35 01/26/2025 01:00:35 01/26/2025 01:00:35 Bed Assign Complete 01/26/2025 01:03:05 01/26/2025 01:03:05 01/26/2025 01:03:05 Dr Exam Complete 01/26/2025 01:03:05 01/26/2025 01:03:48 01/26/2025 01:03:48 RN Exam Complete 01/26/2025 01:03:05 01/26/2025 01:12:17 01/26/2025 01:12:17 Registration Request 01/26/2025 01:03:48 Isolation Screening Request 01/26/2025 01:08:46 Meds Admin Complete 01/26/2025 01:20:00 01/26/2025 01:35:32 Pending Labs Complete 01/26/2025 01:20:00 01/26/2025 02:17:24 Lab Complete 01/26/2025 01:20:00 01/26/2025 02:17:24 Pending Labs Complete 01/26/2025 01:40:12 01/26/2025 01:40:12 01/26/2025 02:03:22 Lab Complete 01/26/2025 01:40:12 01/26/2025 01:40:12 01/26/2025 02:03:22 X-Ray Complete 01/26/2025 01:42:03 01/26/2025 02:18:22 01/26/2025 02:32:27 Pending Labs Complete 01/26/2025 02:23:52 01/26/2025 02:23:52 01/26/2025 02:23:52 Wet Read Request 01/26/2025 02:32:27 Meds Admin Complete 01/26/2025 02:51:17 01/26/2025 03:00:30 Meds Admin Complete 01/26/2025 03:19:12 01/26/2025 03:23:16 Discharge Complete 01/26/2025 03:30:29 01/26/2025 03:40:39 01/26/2025 03:40:39 Transfer Complete 01/26/2025 03:40:39 01/26/2025 03:40:39 01/26/2025 03:40:39 ADDRESS: [address] [place] [phone] PHYS DOC NOTES: MEDICAL INFORMATION: Prescriptions Given: Medications to Continue with No Changes Other Medications albuterol (Albuterol (Eqv-ProAir HFA) 90 mcg/inh inhalation aerosol) 2 Puffs Inhalation every 4 hours as needed Wheezing. dicyclomine (Bentyl 10 mg Cap) 1 Capsules By Mouth 4 times a day as needed abdominal pain. Refills: 0. fluoxetine (Prozac 40 mg Cap) 1 Capsules By Mouth every day. at bedtime. glipiZIDE (glipiZIDE 10 mg Tab) 1 Tablets By Mouth 2 times a day. hydrOXYzine (hydrOXYzine hydrochloride 25 mg Tab) 1 Tablets By Mouth every 6 hours as needed as needed for anxiety. ibuprofen insulin glargine (Lantus 100 units/mL Injection-Insulin) 30 Units Subcutaneous once a day (at bedtime). metoclopramide (Reglan 10 mg Tab) 1 Tablets By Mouth every 6 hours. Refills: 0. metoclopramide (Reglan 10 mg Tab) 1 tab(s) Oral QID 7 day(s). Refills: 0. ondansetron (Zofran 4 mg Tab) 1 Tablets By Mouth every 8 hours as needed Nausea/Vomiting. Refills: 6. ondansetron (Zofran ODT 4 mg Tab-Dis) 1 Tablets By Mouth every 8 hours as needed Nausea/Vomiting. Refills: 0. peppermint oil (Ibgard 90 mg oral delayed release capsule) 2 Capsules By Mouth 2 times a day as needed abdominal pain/cramps. Refills: 0. polyethylene glycol 3350 (MiraLax) 17 Gram By Mouth 3 times a day. prochlorperazine (prochlorperazine 5 mg Tab) 1 Tablets By Mouth 3 times a day as needed for nausea/vomiting. Refills: 0. promethazine (Phenergan 25 mg Supp) 1 Suppositories By rectum every 12 hours as needed Nausea/Vomiting. Refills: 6. promethazine (promethazine 12.5 mg Supp) 1 Suppositories By rectum every 4 hours as needed for nausea/vomiting. Refills: 0. PATIENT EDUCATION INFORMATION: Instructions: Gastroparesis; Abdominal Pain, Adult Follow up: With: Address: When[facility] [address], [address] [phone] Business (1) In 3 days 01/29/2025 Comments: Make sure to follow-up with Dr. Beverly as discussed. Return to the emergency room if your pain gets worse, vomiting recurs or any new symptoms. With: Address: When: YOSSI GOLDEN [address] [place], [place] [id number] Business (1) In 3 days DIAGNOSIS: 1:Abdominal pain; 2:Gastroparesis Normal [facility] ED Note-Physicianon 01-27-20 ED Note-Physician ED Note-Physician Basic Information Time Seen: Alphonso Sullivan M.D. 01/26/2025 01:03 Chief Complaint abdominal pain and nausea x24 hours. States histoy of gastroparesis. Was seen earlier at an ER in [place]. History of Present Illness The patient is a 29-year-old female past medical history of diabetes, diabetic gastroparesis who presented to the emergency room with her for abdominal pain and vomiting. The patient states she has been having abdominal pain since January 18. She points to the epigastric area. She describes the pain as sharp. The patient denies any radiation for the pain. The patient took Reglan and GI cocktail at 10 PM. The patient states she reports nausea and vomiting. The patient is currently nauseated. The patient reports constipation. She states she was in [facility] earlier today and they discharged her home. The patient denies any fever, denies any chills. The patient denies any urinary symptoms. The patient denies any other associated symptoms. Review of Systems Additional ROS info: Except as noted in the above Review of Systems and in the History of Present Illness all other systems have been reviewed and are negative or noncontributory. Physical Exam Vitals & Measurements T: 36.8 ???C(Oral) HR: 70(Monitored) RR: 17 BP: 94/62 SpO2: 95% HT: 172.72 cm WT: 110 kg BMI: 36.87 General: alert, no acute distress Skin: warm, dry Head: no trauma, normocephalic Neck: Trachea midline, no tenderness, supple Eye: normal conjunctiva, sclera clear,EOMI, vision unchanged ENMT: Oral mucosa moist Cardiovascular: regular rate and rhythm Respiratory: Lungs CTA, respirations non labored, breath sounds equal Gastrointestinal: soft, non distended, no tenderness, no guarding, normal bowel sounds Extremities: no deformity, no trauma Neurological: Alert and oriented, speech normal, no focal neuro deficits Psychiatric: cooperative, affect appropriate for age Medical Decision Making MEDICAL DECISION MAKING Number and Complexity of Problems Differential Diagnosis: [] [facility] Data External documents reviewed: [] My EKG interpretation: [] My CT interpretation: [] My X-ray interpretation: [] My Ultrasound interpretation: [] Decision rules/scores evaluated: [] Discussed with: [] Treatment and Disposition ED Course: The patient presented with abdominal pain and nausea and vomiting. She has history of gastroparesis. Her abdomen is benign. The patient reports nausea in the emergency room. Blood work reviewed. She has leukocytosis more likely reactive. The x-ray shows nonspecific gas pattern. The patient was given IV fluids Pepcid Zofran and Bentyl. Her nausea improved. The patient was given GI cocktail. She tolerated p.o. Another dose of Reglan was given IV. Will discharge patient home follow-up with her GI. She is instructed to return to the emergency room if her symptoms recur or any new symptoms. Shared decision making: Patient and her Code status: [] Assessment/Plan 1. Abdominal pain (R10.9: Unspecified abdominal pain) 2. Gastroparesis (K31.84: Gastroparesis) Orders: Al hydroxide/Mg hydroxide/simethicone, 30 mL, Susp-Oral, Oral, Once, Stop date 01/26/25 2:51:00 EDT, STAT, Start date 01/26/25 2:51:00 EDT atropine/hyoscyamine/P B/scopolamine, 10 mL, Elixir, Oral, Once, Stop date 01/26/25 2:51:00 EDT, STAT, Start date 01/26/25 2:51:00 EDT dicyclomine, 20 mg = 2 mL, Injection, IntraMuscular, Once, Stop date 01/26/25 1:19:00 EDT, STAT, Start date 01/26/25 1:19:00 EDT, 01/26/25 1:19:00 EDT famotidine, 20 mg = 2 mL, Soln-IV, IV Push, Once, Stop date 01/26/25 1:19:00 EDT, STAT, Start date 01/26/25 1:19:00 EDT, 01/26/25 1:19:00 EDT lidocaine topical, 200 mg, 10 mL, Soln-Oral, Oral, Once, Stop date 01/26/25 2:51:00 EDT, STAT, Start date 01/26/25 2:51:00 EDT metoclopramide, 10 mg = 2 mL, Injection, IV Push, Once, Stop date 01/26/25 3:19:00 EDT, STAT, Start date 01/26/25 3:19:00 EDT, 01/26/25 3:19:00 EDT ondansetron, 4 mg = 2 mL, Injection, IV Push, Once, Stop date 01/26/25 1:19:00 EDT, STAT, Start date 01/26/25 1:19:00 EDT, 01/26/25 1:19:00 EDT Sodium Chloride 0.9% intravenous solution, 1,000 mL, Soln-IV, IV, Once, Stop date 01/26/25 1:19:00 EDT, STAT, Start date 01/26/25 1:19:00 EDT, Infuse over 61, minute(s) Basic Metabolic Panel Beta hCG Qual CBC w/ Auto Diff eGFR Extra Blue Tube Hepatic Function Panel Lipase Level UA with Cult Rflx XR Abdomen Series w/ Chest 1 View Medications Administered Given Al hydroxide/Mg hydroxide/simethicone 200 mg-200 mg-20 mg/5 mL oral suspension, 30 mL, Oral dicyclomine 10 mg/mL Inj, 20 mg, IntraMuscular Elixir, 10 mL, Oral famotidine 10 mg/mL IV Deniz, 20 mg, IV Push lidocaine Viscous Top 2% Deniz, 200 mg, Oral metoclopramide 5 mg/mL Inj, 10 mg, IV Push NS 1000 ml Bolus, 1000 mL, IV ondansetron 4 mg/2 mL Inj, 4 mg, IV Push Disposition Plan Patient Discharge Condition Stable, improv (more content not included)... Normal [facility] Comment on above: Result Comment: Elec tronically Signed By: Laurie Garcia, Alphonso Garcia\.br\Date and Time Signed: 01/26/25 03:46 EDT ED Patient Summaryon 025 ED Patient Summary ED Patient Summary [address] [address] Patient Discharge Instructions Person Information Name: GAEL RUBY Age: 29 Years Arrival Date: 01/26/2025 00:57:34 Discharge Diagnosis: 1:Abdominal pain; 2:Gastroparesis Primary Care Physician: YOSSI GOLDEN MD Provider Information Primary Provider: Alphonso Sullivan M.D. [employer] Processor:None The exam and treatment you received in the Emergency Department were for an urgent problem and are not intended as complete care. It is important that you follow up with a doctor, nurse practitioner, or physician???s secretary administrative assistant for ongoing care. If your symptoms become worse or you do not improve as expected and you are unable to reach your usual health care provider, you should return to the Emergency Department. We are available 24 hours a day. GAEL RUBY has been given the following list of patient education materials, prescriptions and follow-up instructions: Follow-up Instructions: With: Address: When: Aly Beverly [address] [place] [address], [address], [address] [phone] Business (1) In 3 days 01/29/2025 Comments: Make sure to follow-up with Dr. Beverly as discussed. Return to the emergency room if your pain gets worse, vomiting recurs or any new symptoms. With: Address: When: YOSSI GOLDEN [address] [place], [place] [id number] Business (1) In 3 days In the event that this physician does not participate in your insurance network, please consult with your insurance company to find a nearby participating provider. Patient Education Materials: Gastroparesis; Abdominal Pain, Adult A MESSAGE TO ALL PATIENTS REGARDING OPIOIDS PRESCRIPTION OPIOIDS: WHAT YOU NEED TO KNOW Prescription opioids can be used to help relieve rajaecnj-fb-ldqvxa pain and are often prescribed following a surgery or injury, or for certain health conditions. These medications can be an important part of the treatment but also come with serious risks. It is important to work with your healthcare provider to make sure you are getting the safest, most effective care. WHAT ARE THE RISKS AND SIDE EFFECTS OF OPIOID USE? Prescription opioids carry serious risks of addiction and overdose, especially with prolonged use. An opioid overdose, often marked by slowed breathing, can cause sudden . The use of prescription opioids can have a number of side effects as well, even when taken as directed: ??? Tolerance???meaning you might need to take more of the medication for the same pain relief ??? Physical dependence???meaning you have symptoms of withdrawal when a medication is stopped ??? Increased sensitivity to pain ??? Constipation ??? Nausea, vomiting, and dry mouth ??? Sleepiness and dizziness ??? Confusion ??? Depression ??? Low levels of testosterone that can result in lower sex drive, energy, and strength ??? Itching and sweating RISKS ARE GREATER WITH: ??? History of drug misuse, substance use disorder, or overdose ??? Mental health conditions (such as depression or anxiety) ??? Sleep apnea ??? Older age (65 years and older) ??? Avoid alcohol while taking prescription opioids. Also, unless specifically advised by your health care provider, medications to avoid include: ??? Benzodiazepines (such as Xanax or Valium) ??? Muscle relaxants (such as Soma or Flexeril) ??? Hypnotics (such as Ambien or Lunesta) ??? Other prescription opioids KNOW YOUR OPTIONS Talk to your health care provider about ways to manage your pain that don???t involve prescription opioids. Some of these options may actually work better and have fewer risks and side effects. Options may include: ??? Pain relievers such as acetaminophen, ibuprofen, and naproxen ??? Some medication that are also used for depression or seizures ??? Physical therapy and exercise ??? Cognitive behavioral therapy, a psychological, goal-directed approach, in which patients learn how to modify physical, behavioral, and emotional triggers of pain and stress. IF YOU ARE PRESCRIBED OPIOIDS FOR PAIN: ??? Never take opioids in greater amounts or more often than prescribed. ??? Follow up with your primary health care provider. o Work together to create a plan on how to manage your pain. o Talk about ways to help manage your pain that don???t involve prescription opioids. o Talk about any and all concerns and side effects. ??? Help prevent misuse and abuse o Never sell or share prescription opioids. o Never use another person???s prescription opioids. ??? Store prescription opioids in a secure place and out of reach of others (this may include visitors, children, friends, and family). ??? Safely dispose of unused prescription opioids: Find your community drug take-back program or your pharmacy mail-back program, or [employer] (more content not included)... Normal [facility] Extra Blueon 01-26-2025 Tube Collected Plasma Yes Invalid Interpretation Code [facility] Comment on above: Performed By: #### 1 [id number] #### [facility] [address] [place] [address] HEMATOLOGYOrdered By: SYSTEM SYSTEM on 01-26-2025 Basophils/100 WBC (Bld) 0.7 % Normal 0.0 - 2.0 % Remisol Heme Basophils/Leukocytes Auto (Bld) [Pure # fraction] 0.1 E9/L Normal 0.0 - 0.2 E9/L Remisol Heme Eosinophils (Bld) [#/Vol] 0.2 E9/L Normal 0.0 - 0.5 E9/L Remisol Heme Eosinophils/100 WBC (Bld) 1.8 % Normal 0.0 - 8.0 % Remisol Heme Erythrocyte distribution width (RBC) [Ratio] 14.0 % Normal 10.9 - 14.2 % Remisol Heme Hematocrit (Bld) [Volume fraction] 41.8 % Normal 34.0 - 46.0 % Remisol Heme Hemoglobin (Bld) [Mass/Vol] 14.5 g/dL Normal 12.0 - 16.0 gm/dL [facility] Heme Lymphocytes (Bld) [#/Vol] 4.8 E9/L High 1.0 - 4.0 E9/L [facility] Heme Lymphocytes/100 WBC (Bld) 37.0 % Normal 14.0 - 50.0 % Remisol Heme MCH (RBC) [Entitic mass] 30.5 pg Normal 27.0 - 34.0 pg Remisol Heme MCHC (RBC) [Mass/Vol] 34.8 g/dL Normal 31.4 - 36.0 gm/dL Rem[facility] Heme MCV (RBC) [Entitic vol] 87.6 fL Normal 80.0 - 100.0 fL [facility] Heme Monocytes (Bld) [#/Vol] 0.6 E9/L Normal 0.2 - 1.0 E9/L Remisol Heme Monocytes/100 WBC (Bld) 5.0 % Normal 4.0 - 14.0 % Remisol Heme Neutrophils (Bld) [#/Vol] 7.1 E9/L Normal 2.0 - 7.5 E9/L Rem[facility] Heme Neutrophils/100 WBC (Bld) 55.5 % Normal 36.0 - 75.0 % Rem[facility] Heme Platelet mean volume (Bld) [Entitic vol] 8.6 fL Normal 6.4 - 10.8 fL [facility] Platelets (Bld) [#/Vol] 291.0 E9/L Normal 150.0 - 500.0 E9/L [facility] Heme RBC (Bld) [#/Vol] 4.8 E12/L Normal 4.3 - 5.9 E12/L [facility] Heme WBC corrected for nucl RBC Auto (Bld) [#/Vol] 12.9 E9/L High 4.0 - 11.0 E9/L [facility] Heme Hep Func Panelon 01-26-2025 Albumin [Mass/Vol] 4.2 g/dL Normal 3.3-5.0 [facility] Comment on above: Performed By: #### 2 [id number] #### [facility] [address] [place] [address] Albumin/Globulin (S) [Mass conc ratio] 1.5 Normal 1.1-2.2 [facility] Comment on above: Performed By: #### 2 [id number] #### [facility] [address] [place] [address] ALP [Catalytic activity/Vol] 66 Int._Unit/L Normal 21-98 [facility] Comment on above: Performed By: #### 2 [id number] #### [facility] [address] [place] [address] ALT No additional P-5'-P [Catalytic activity/Vol] 32 Int._Unit/L Normal 6-46 [facility] Comment on above: Performed By: #### 2 [id number] #### [facility] [address] [place] [address] AST [Catalytic activity/Vol] 25 Int._Unit/L Normal 5-43 [facility] Comment on above: Performed By: #### 2 [id number] #### [facility] [address] [place] [address] Bilirubin [Mass/Vol] 0.8 mg/dL Normal 0.0-1.1 [facility] Comment on above: Performed By: #### 2 [id number] #### [facility] [address] [place] [address] Bilirubin.direct [Mass/Vol] 0.1 mg/dL Normal 0.0-0.4 [facility] Comment on above: Performed By: #### 2 [id number] #### [facility] [address] [place] [address] Bilirubin.indirect [Mass or moles/Vol] 0.7 mg/dL Normal 0.1-0.9 [facility] Comment on above: Performed By: #### 2 [id number] #### [facility] [address] [place] [address] Globulin (S) [Mass/Vol] 2.8 g/dL Normal 1.4-4.0 [facility] Comment on above: Performed By: #### 2 [id number] #### [facility] [address] [place] [address] Protein [Mass/Vol] 7.0 g/dL Normal 6.0-7.8 [facility] Comment on above: Performed By: #### 2 [id number] #### [facility] [address] [place] [address] Lipase Levelon 01-26-2025 Lipase [Catalytic activity/Vol] 61 U/L High 13-58 [facility] Comment on above: Performed By: #### 2 [id number] #### [facility] [address] [place] [address] SEROLOGYOrdered By: Nehal Toscano on 01-26-2025 Beta HCG ( test) Ql Negative (01/26/25 1:23 AM) Normal [facility] Man Sero UA with Cult Rflxon 01-27-20 Bilirubin Ql (U) Negative Normal Negative [facility] Comment on above: Performed By: #### 4 [id number] #### [facility] [address] [place] [address] Clarity (U) Clear Normal Clear [facility] Comment on above: Performed By: #### 4 [id number] #### [facility] [address] [place] [address] Color (U) Yellow Normal Yellow [facility] Comment on above: Result Comment: Micr oscopic readings are only performed on those samples that meet specific criteria set forth by [facility]. Performed By: #### 4 [id number] #### [facility] [address] [place] [address] Epithelial cells.squamous Auto (Urine sed) [#/Area] 0-2 Invalid Interpretation Code [facility] Comment on above: Performed By: #### 4 [id number] #### [facility] [address] [place] [address] Glucose Ql (U) Negative Normal Negative [facility] Comment on above: Performed By: #### 4 [id number] #### [facility] [address] [place] [address] Hemoglobin Auto test strip (U) [Mass/Vol] Negative Normal Negative [facility] Comment on above: Performed By: #### 4 [id number] #### [facility] [address] [place] [address] Ketones Auto test strip Ql (U) Trace Abnormal Negative [facility] Comment on above: Performed By: #### 4 [id number] #### [facility] [address] [place] [address] Leukocyte esterase Auto test strip Ql (U) 25 Zhanna/uL Normal Negative [facility] Comment on above: Performed By: #### 4 [id number] #### [facility] [address] [place] [address] Mucus Auto Ql (U) Trace Normal Negative [facility] Comment on above: Performed By: #### 4 [id number] #### [facility] [address] [place] [address] Nitrite Auto test strip Ql (U) Negative Normal Negative [facility] Comment on above: Performed By: #### 4 [id number] #### [facility] [address] [place] [address] pH (U) 5.5 [pH] Invalid Interpretation Code 5.0-9.0 [facility] Comment on above: Performed By: #### 4 [id number] #### [facility] [address] [place] [address] Protein Ql (U) Negative Normal Negative [facility] Comment on above: Performed By: #### 4 [id number] #### [facility] [address] [place] [address] RBC Ql (U) 0-3 Normal 0-3 [facility] Comment on above: Performed By: #### 4 [id number] #### [facility] [address] [place] [address] Specific gravity (U) [Rel density] 1.019 Invalid Interpretation Code 1.005-1.030 [facility] Comment on above: Performed By: #### 4 [id number] #### [facility] [address] [place] [address] Urobilinogen (U) [Mass/Vol] 2 mg/dL Abnormal Negative [facility] Comment on above: Performed By: #### 4 [id number] #### [facility] [address] [place] [address] WBC Auto (Urine sed) [#/Area] 0-5 Normal 0-5 [facility] Comment on above: Performed By: #### 4 [id number] #### [facility] [address] [place] [address] Type of Urine collection method Clean Catch Normal [facility] Comment on above: Performed By: #### 4 [id number] #### [facility] [address] [place] [address] URINALYSISOrdered By: SYSTEM SYSTEM on 01-26-2025 Bilirubin Ql (U) Negative Normal Negativemg/ dL [facility] UA Auto SS Clarity (U) Clear (01/26/25 1:23 AM) Normal Clear [facility] UA Auto SS Color (U) Yellow 1 (01/26/25 1:23 AM) Normal Yellow [facility] UA Auto SS Comment on above: Interpretive Data: M icroscopic readings are only performed on those samples that meet specific criteria set forth by [facility]. Epithelial cells.squamous Auto (Urine sed) [#/Area] 0-2 graded/HPF Invalid Interpretation Code [facility] UA Auto SS Glucose Ql (U) Negative Normal Negativemg/ dL [facility] UA Auto SS Hemoglobin Auto test strip (U) [Mass/Vol] Negative Normal Negativemg/ dL [facility] UA Auto SS Ketones Auto test strip Ql (U) Trace mg/dL Invalid Interpretation Code Negativemg/ dL [facility] UA Auto SS Leukocyte esterase Auto test strip Ql (U) 25 Zhanna/uL Zhanna/uL Normal NegativeLeu /uL [facility] UA Auto SS Mucus Auto Ql (U) Trace graded/LPF Normal Negati vegra ded/LPF [facility] UA Auto SS Nitrite Auto test strip Ql (U) Negative Normal Negativemg/ dL [facility] UA Auto SS pH (U) 5.5 *NA* (01/26/25 1:23 AM) Invalid Interpretation Code 5.0 - 9.0 [facility] UA Auto SS Protein Ql (U) Negative Normal Negativemg/ dL [facility] UA Auto SS RBC Ql (U) 0-3 graded/HPF Normal 0-3graded/H PF [facility] UA Auto SS Specific gravity (U) [Rel density] 1.019 *NA* (01/26/25 1:23 AM) Invalid Interpretation Code 1.005 - 1.030 [facility] UA Auto SS Urobilinogen (U) [Mass/Vol] 2 mg/dL Invalid Interpretation Code Negativemg/ dL [facility] UA Auto SS WBC Auto (Urine sed) [#/Area] 0-5 graded/HPF Normal 0-5graded/H PF [facility] UA Auto SS URINALYSISOrdered By: Alphonso Sullivan on 01-26-2025 UA Spec Desc Clean Catch (01/26/25 1:23 AM) Normal [facility] UA Auto SS XR Abdomen Series w/ Chest 1 Viewon 01-26-2025 XR Abdomen Series w/ Chest 1 View Exam Date/Time: 01/26/2025 02:32 EDT Reason for Exam: Abdominal pain Report IMPRESSION: No acute radiographic findings. EXAMINATION/TECHNIQUE: XR Abdomen Series w/ Chest 1 View HISTORY: Abdominal pain. Nausea. COMPARISON: 08/13/2024. RESULT: No consolidation. No pleural effusion. No pneumothorax. Normal cardiomediastinal silhouette. No pneumoperitoneum. Nondilated bowel gas pattern. No abnormal calcifications. Surgical clips within the mid abdomen. Correlate with surgical history. No acute osseous findings. No other significant abnormality. Ordering Provider: Alphonso Sullivan FINAL REPORT Dictated: 01/26/2025 9:45 am Woodrow Bell MD Signed (Electronic Signature): 01/26/2025 9:45 am Signed by: Woodrow Bell MD Transcribed by: VENKAT Technologist: ISIS Normal [facility] eGFRon 01-26-2025 eGFR 101 mL/min/1.73 m2 Normal >=59 [facility] Comment on above: Performed By: #### 1 [id number] #### [facility] [address] [place] [address] .UA Microscp Aon 01-25-2025 UA Mucus Present Normal Absent [facility] Comment on above: Performed By: #### . Urinalysis Microscopic Auto #### [facility] [address] [place] [address] UA RBC Quant 1 /HPF Normal 0-5 [facility] Comment on above: Performed By: #### . Urinalysis Microscopic Auto #### [facility] [address] [place] [address] UA Squepi Cells Quant <1 Normal 0-29 [facility] Comment on above: Performed By: #### . Urinalysis Microscopic Auto #### [id number] [place] [address] UA WBC Quant 0 /HPF Normal 0-5 [facility] Comment on above: Performed By: #### . Urinalysis Microscopic Auto #### [address] [place] [address] .eGFRon 01-25-2025 GFR/1.73 sq M.predicted MDRD (S/P/Bld) [Vol rate/Area] mL/min/{1.73_m2} Normal >=60 [facility] Comment on above: Result Comment: [facility] have implemented the eGFR calculation [...] 1 Age = years Performed By: #### . Urinalysis Microscopic Auto #### [address] [place] [address] CBC w/ Diffon 01-25-2025 Erythrocyte distribution width (RBC) [Ratio] 13.8 % Normal 11.6-14.8 [facility] Comment on above: Performed By: #### . Automated Diff #### [address] [address] Hematocrit (Bld) [Volume fraction] 43.7 % Normal 36.0-46.0 [facility] Comment on above: Performed By: #### . Automated Diff #### [place] [id number] Hemoglobin (Bld) [Mass/Vol] 15.0 g/dL Normal 12.0-16.0 [facility] Comment on above: Performed By: #### . Automated Diff #### [place] [id number] MCH (RBC) [Entitic mass] 30.3 pg Normal 27.0-35.0 [facility] Comment on above: Performed By: #### . Automated Diff #### [place] [id number] MCHC 34.3 % Normal 31.0-37.0 [facility] Comment on above: Performed By: #### . Automated Diff #### [place] [id number] MCV (RBC) [Entitic vol] 88.2 fL Normal 80.0-100.0 [facility] Comment on above: Performed By: #### . Automated Diff #### [place] [id number] Platelet 291 x10*3/mcL Normal 150-450 [facility] Comment on above: Performed By: #### . Automated Diff #### [address] [address] Platelet mean volume (Bld) [Entitic vol] 7.8 fL Normal 6.7-10.6 [facility] Comment on above: Performed By: #### . Automated Diff #### [address] [address] RBC 4.96 x10*6/mcL Normal 3.80-5.20 [facility] Comment on above: Performed By: #### . Automated Diff #### [address] [address] WBC 15.6 x10*3/mcL High 4.5-11.0 [facility] Comment on above: Performed By: #### . Automated Diff #### [address] [address] CMPon 01-25-2025 Albumin [Mass/Vol] 3.5 g/dL Normal 3.2-4.9 [facility] Comment on above: Performed By: #### . Automated Diff #### [address] [address] Albumin/Globulin [Mass ratio] 1.0 {ratio} Low 1.1-2.2 [facility] Comment on above: Performed By: #### . Automated Diff #### [address] [address] Alk Phos 69 IU/L Normal 32-91 [facility] Comment on above: Performed By: #### . Automated Diff #### [address] [address] ALT [Catalytic activity/Vol] 39 U/L Normal 14-54 [facility] Comment on above: Performed By: #### . Automated Diff #### [address] [address] AST [Catalytic activity/Vol] 36 U/L Normal 15-41 [facility] Comment on above: Performed By: #### . Automated Diff #### [address] [address] Bili Total 1.2 mg/dL Normal 0.3-1.2 [facility] Comment on above: Performed By: #### . Automated Diff #### [address] [address] BUN Crea Ratio 11.4 ratio Normal 10.0-20.0 [facility] Comment on above: Performed By: #### . Automated Diff #### [address] [address] Creatinine [Mass/Vol] 0.70 mg/dL Normal 0.44-1.03 [facility] Comment on above: Performed By: #### . Automated Diff #### [address] [address] Protein [Mass/Vol] 6.9 g/dL Normal 6.5-8.1 [facility] Comment on above: Performed By: #### . Automated Diff #### [address] [address] Urea nitrogen [Mass/Vol] 8 mg/dL Normal 8-26 [facility] Comment on above: Performed By: #### . Automated Diff #### [address] [address] Anion gap [Moles/Vol] 10 mmol/L Normal 4-12 [facility] Comment on above: Performed By: #### . Automated Diff #### [address] [address] Calcium [Mass/Vol] 9.4 mg/dL Normal 8.6-10.3 [facility] Comment on above: Performed By: #### . Automated Diff #### [address] [address] Chloride [Moles/Vol] 104 mmol/L Normal 98-110 [facility] Comment on above: Performed By: #### . Automated Diff #### [address] [address] CO2 [Moles/Vol] 23 mmol/L Normal 22-32 [facility] Comment on above: Performed By: #### . Automated Diff #### [address] [address] Glucose [Mass/Vol] 163 mg/dL High 70-99 [facility] Comment on above: Performed By: #### . Automated Diff #### [address] [address] Potassium [Moles/Vol] 4.1 mmol/L Normal 3.4-4.8 [facility] Comment on above: Performed By: #### . Automated Diff #### [address] [address] Sodium [Moles/Vol] 137 mmol/L Normal 133-142 [facility] Comment on above: Performed By: #### . Automated Diff #### [facility] [address] [place] [address] CNPSofi 01-25-2025 CNPN Telephone (DDQ) GAEL RUBY ([id number]) 1995 F Date Time Provider Department 01/25/25 YAJAIRA LACKEY DDQ During your visit today, we recorded the following information about you: Laith Massey 01/25/2025 3:05 PM Signed Gael is calling Yajaira Lackey DO today with concern regarding Patient Question (Patient was in ER today in hometown states she is in a lot of pain and would like to speak with someone ) Patient has been identified by name and birthdate. Duration of symptoms: N/A Person calling: self Call patient at: at home [phone] (home) Was an appointment scheduled: No Closing statement: Symptom Call: Thank you for calling [facility], your call is very important. A nurse will call in approximately 2-4 hours during business hours. If this is an emergency, please contact 911. Dixie Dooley RN 01/26/2025 9:36 AM Signed MARGE: 12/02/2024 LDH: NOV: NDH: Spoke with patient Having Flare with pain 10/10 and nausea uses phenergan supp, compazine,zofran without relief ER x 2 [facility] Yesterday beck solo in [place] Xray done states Soft diet currently Bowels-constipated for a long time, then diarrhea started yesterday and pain and nausea worse. Normally Takes Dulcolax, stool softener, miralax for constipation Has POP scheduled 02/12/[address] Sánchez Please advise Abel Beckwith 01/26/2025 10:51 AM Signed Called pt in regards to mychart request to schedule appt with Dr Lackey. She has an OV with DR Sánchez for 4 wk post op 02/12. She will wait to hear from Dr Lackey to schedule Yajaira Lackey DO 01/27/2025 6:46 AM Signed Have go back to clears for a week and then advance slowly to food to see if that helps with the pain Dixie Grimaldo RN 01/27/2025 8:29 AM Signed Called patient and instructed on going back to [facility]ars and advancing to see if will calm down symptoms and diet guide sent. She verbalized understanding. Allergies As of Date: 01/25/2025 Noted Allergy Reaction KETOROLAC 01/23/2013 9 - Itching 12 - Shortness of Breath MEPERIDINE 02/26/2016 9 - Itching 12 - Shortness of Breath Comments: UNKNOWN REACTION EGG 12/02/2024 8 - GI Upset KIWI (ACTINIDIA CHINENSIS) 06/03/2023 9 - Itching LATEX 02/27/2016 9 - Itching Comments: Pruritis AMOXICILLIN 02/26/2016 2 - Rash Comments: hives PENICILLINS 02/27/2016 2 - Rash Comments: hives PHENAZOPYRIDINE 02/27/2016 1 - Mental Status Change 14 - Other: See Comments Date Reviewed: 01/13/2025 Reviewed by: Jessica Ayers, NU - Fully Assessed Reason for Visit: Patient Question [2112] Cmt: [place] states she is in a lot of pain and would like to speak with someone Prescriptions as of 01/27/2025 - promethazine (PHENERGAN) 25 mg suppository 25 mg by RECTAL route. - pantoprazole DR (PROTONIX) 40 mg tablet Take 1 tablet by mouth two times a day. Start taking medication after procedure for 4 weeks. - prochlorperazine (COMPAZINE) 5 mg tablet Take 5 mg by mouth. - polyethylene glycol 3350 (MIRALAX ORAL) Take 17 g by mouth. - pantoprazole DR (PROTONIX) 40 mg tablet 40 mg. - ondansetron orally disintegrating (ZOFRAN ODT) 4 mg disintegrating tablet 4 mg. - LANTUS SOLOSTAR U-100 INSULIN 100 unit/mL (3 mL) Inject 25 Units subcutaneously daily at bedtime. Taking 30 units at night - JARDIANCE 10 mg tablet Take 10 mg by mouth. - PROZAC 40 mg capsule Take 40 mg by mouth. - glipiZIDE (GLUCOTROL) 10 mg tablet Take 20 mg by mouth. - atorvastatin (LIPITOR) 40 mg tablet Take 40 mg by mouth. - metoclopramide HCl (GIMOTI) 15 mg/spray nasal spray Use 1 [place] in the nose four times daily. Problem List As Of Date 01/25/2025 Noted Resolved Chronic pancreatitis (HCC) [K86.1] 11/05/2024 DDD (degenerative disc disease), lumbar [M51.36*07/29/2023 Diabetic gastroparesis associated with type 2 d*04/29/2024 Dyslipidemia [E78.5] 10/08/2024 Essential hypertension [I10] 12/23/2024 Factor V Leiden (HCC) [D68.51] 12/23/2024 Gastroesophageal reflux disease [K21.9] 01/08/2024 History of pulmonary embolism [Z86.711] 12/23/2024 Hypercoagulable state (HCC) [D68.59] 08/03/2020 Mild concentric left ventricular hypertrophy (L*04/04/2020 Nonalcoholic fatty liver [K76.0] 07/09/2024 Obesity with body mass index 30 or greater [E66*03/25/2017 Steatosis of liver [K76.0] 06/01/2024 Type 2 diabetes mellitus (HCC) [E11.9] 12/25/2023 Mild intermittent asthma without complication (*12/24/2024 Encounter Status:Closed by LAITH MASSEY on 01/26/25 Normal [facility] Diff Autoon 01-25-2025 Baso Absolute 0.1 x10*3/mcL Normal 0.0-0.2 [facility] Comment on above: Performed By: #### . Automated Diff #### [address] [address] Basophils/100 WBC (Bld) 0.6 % Normal 0.0-1.5 [facility] Comment on above: Performed By: #### . Automated Diff #### [address] [address] Eos Absolute 0.2 x10*3/mcL Normal 0.0-0.4 [facility] Comment on above: Performed By: #### . Automated Diff #### [address] [address] Eosinophils/100 WBC (Bld) 1.0 % Normal 0.0-5.4 [facility] Comment on above: Performed By: #### . Automated Diff #### [address] [address] Lymph Absolute 3.5 x10*3/mcL Normal 1.0-4.8 [facility] Comment on above: Performed By: #### . Automated Diff #### [address] [address] Lymphocytes/100 WBC (Bld) 22.7 % Low 27.2-40.8 [facility] Comment on above: Performed By: #### . Automated Diff #### [address] [address] [place] Absolute 0.5 x10*3/mcL Normal 0.1-1.1 [facility] Comment on above: Performed By: #### . Automated Diff #### [address] [address] Monocytes/100 WBC (Bld) 3.3 % Low 3.7-11.9 [facility] Comment on above: Performed By: #### . Automated Diff #### [address] [address] Neutro Absolute 11.3 x10*3/mcL High 1.8-7.7 [facility] Comment on above: Performed By: #### . Automated Diff #### [address] [address] Neutro Auto 72.4 % High 47.2-70.8 [facility] Comment on above: Performed By: #### . Automated Diff #### [address] [address] ED Clinical Summaryon 2024 ED Clinical Summary [address] [address] [place] [address] ED Clinical Summary Person Information Name: Gael Ruby/New_Terence Age: 29 Years : 1995 Sex: Female PCP: Yossi Golden MD Marital Status: Phone: Race: White Ethnicity: Not or Language: Somali Visit Reason: Abdominal pain; abd pn Acuity: 3 Enc Type: Emergency Med Service: Emergency Medicine Arrival: 01/25/2025 12:04:31 Discharge: 01/25/2025 14:33:00 LOS: 000 02:29 Checkin: 01/25/2025 12:04:31 Checkout: 01/25/2025 14:33:00 Dispo Type: Home or Self Care Address: [address] [place] [phone] Provider Notes: History of Present Illness Patient is a 29 year old female with a history gastroparesis and GERD presenting to the ED complaining of abdominal pain, nausea, and constipation.? Denies any vomiting or diarrhea.? No leg swelling.? Follows with Dr. Gastelum and [facility].? No other complaints at this time. Review of Systems As reviewed in the HPI. All other systems reviewed are negative or normal. Physical Exam Constitutional: the patient appears in no acute distress, alert, awake, non-toxic? Head/face:?exam is negative for obvious evidence of injury or deformity ? Eyes:?Pupils: equal, round, and reactive to light. ?Sclera: no appreciated abnormality ? ENT:?Exam is negative for injury or acute deformity ? Neck:?External neck: no acute changes, Trachea: is midline with no obvious abnormalities, ROM/movement: no acute changes, Meningeal signs: are not present. ? Cardiovascular:?Rate: normal, Rhythm: regular, Pulses: no pulse deficits are appreciated, Heart sounds: normal, Edema: is not appreciated, JVD: is not appreciated. ? Respiratory:?Exam negative for respiratory distress, Respirations: normal, Breath sounds: are normal, no acute changes, throughout. ? Abdomen / GI Exam:?negative for guarding, pulsatile mass, rebound tenderness, Inspection: abdomen appears normal, Bowel sounds: normal, active, Palpitation: abdomen is soft with epigastric tenderness, Indicators: Aquino?s sign is negative, McBurney?s point is not-tender. ? Back:?Exam negative for acute changes, CVA tenderness. ? Musculoskeletal/extrem ity:?Extremities: all appear grossly normal, with no appreciated pain with palpation, Perfusion: the patient is warm, the extremity is warm. ?Sensation intact. DVT exam: no swelling no tenderness,?Calves: are non-tender. ? Skin:?Exam negative for cyanosis, any evidence of obvious injury, Appearance: appears normal. ? Neuro:??Orientation: is normal, appropriate for stated age, no acute changes, Mentation: able to follow commands, cerebellar function: is grossly normal, no acute changes, Motor: strength is normal, strength is 5/5 in all extremities, Sensation: no obvious gross deficits. ? Psych:?Exam negative for acute changes, delusions, inappropriate behavior. Reexamination/Reevalua tion MEDICAL DECISION MAKING Number and Complexity of Problems Differential Diagnosis: _Chronic abdominal pain, gastroparesis, dehydration ? MDM Data External documents reviewed: _Cerner documentation My EKG interpretation: _ My CT interpretation: _ My X-ray interpretation: _ My Ultrasound interpretation: _ Decision rules/scores evaluated: _ Discussed with: _ ? Decision rules/scores evaluated: _ ? HEART Score: Not Completed ? PERC Rule: _ ? NEXUS C-spine Criteria: _ ? [place] Ankle Rule: _ ? [place] Knee Rule: _ ? Wells Criteria for DVT: _ ? Wells Criteria for PE: _ ? Discussed with: _ ? Treatment and Disposition ED Course: _This is a 29-year-old female presents to the emergency department for evaluation of abdominal pain, here in the emergency department?noted to be hemodynamically stable, does have mild epigastric tenderness, she was here recently,?had an extensive workup including CT scan of the abdomen and pelvis,?she does not have any peritoneal signs, she does not have?any rebound or guarding,?otherwise stable?to be discharged home follow-up outpatient after she was given?medications. Shared decision making: _patient Code status: _ ? The results of pertinent diagnostic studies and exam findings supporting the discharge from the ED were discussed. The patient?s provisional diagnosis and plan of care were [...] discussed with the patient and family present. Diagnosis: 1:Epigastric abdominal pain; 2:Gastroparesis Problems Active Gastroparesis Type 2 diabetes mellitus PCOS- polycystic ovary syndrome HSV Depress (more content not included)... Normal [facility] ED Note-Physicianon 01-26-20 ED Note-Physician Chief Complaint abdominal pain, nausea, smokes marijuana daily. History of Present Illness Patient is a 29 year old female with a history gastroparesis and GERD presenting to the ED complaining of abdominal pain, nausea, and constipation. Denies any vomiting or diarrhea. No leg swelling. Follows with Dr. Gastelum and [facility]. No other complaints at this time. Review of Systems As reviewed in the HPI. All other systems reviewed are negative or normal. Physical Exam Constitutional: the patient appears in no acute distress, alert, awake, non-toxic Head/face: exam is negative for obvious evidence of injury or deformity Eyes: Pupils: equal, round, and reactive to light. Sclera: no appreciated abnormality ENT: Exam is negative for injury or acute deformity Neck: External neck: no acute changes, Trachea: is midline with no obvious abnormalities, ROM/movement: no acute changes, Meningeal signs: are not present. Cardiovascular: Rate: normal, Rhythm: regular, Pulses: no pulse deficits are appreciated, Heart sounds: normal, Edema: is not appreciated, JVD: is not appreciated. Respiratory: Exam negative for respiratory distress, Respirations: normal, Breath sounds: are normal, no acute changes, throughout. Abdomen / GI Exam: negative for guarding, pulsatile mass, rebound tenderness, Inspection: abdomen appears normal, Bowel sounds: normal, active, Palpitation: abdomen is soft with epigastric tenderness, Indicators: Aquino?s sign is negative, McBurney?s point is not-tender. Back: Exam negative for acute changes, CVA tenderness. Musculoskeletal/extrem ity: Extremities: all appear grossly normal, with no appreciated pain with palpation, Perfusion: the patient is warm, the extremity is warm. Sensation intact. DVT exam: no swelling no tenderness, Calves: are non-tender. Skin: Exam negative for cyanosis, any evidence of obvious injury, Appearance: appears normal. Neuro: Orientation: is normal, appropriate for stated age, no acute changes, Mentation: able to follow commands, cerebellar function: is grossly normal, no acute changes, Motor: strength is normal, strength is 5/5 in all extremities, Sensation: no obvious gross deficits. Psych: Exam negative for acute changes, delusions, inappropriate behavior. Vitals & Measurements T: 36.6 ?C (Oral) HR: 85 (Peripheral) RR: 14 BP: 128/87 SpO2: 96% HT: 172 cm WT: 110.7 kg (Dosing) Additional Vitals No qualifying data available. Procedure No qualifying data available. ASA Documentation Medical Decision Making Ally Kelly scribing for and in the presence of Dr. Dorcas Burden Attestation: The information in this document, created by the medical grade shoemaker for me, accurately reflects the services I personally performed and the decisions made by me. This report has been created using voice recognition software. It may contain minor errors which are inherent in voice recognition technology. Reexamination/Reevalua tion MEDICAL DECISION MAKING Number and Complexity of Problems Differential Diagnosis: _Chronic abdominal pain, gastroparesis, dehydration MDM Data External documents reviewed: _Cerner documentation My EKG interpretation: _ My CT interpretation: _ My X-ray interpretation: _ My Ultrasound interpretation: _ Decision rules/scores evaluated: _ Discussed with: _ Decision rules/scores evaluated: _ ? HEART Score: Not Completed ? PERC Rule: _ ? NEXUS C-spine Criteria: _ ? [place] Ankle Rule: _ ? [place] Knee Rule: _ ? Wells Criteria for DVT: _ ? Wells Criteria for PE: _ Discussed with: _ Treatment and Disposition ED Course: _This is a 29-year-old female presents to the emergency department for evaluation of abdominal pain, here in the emergency department noted to be hemodynamically stable, does have mild epigastric tenderness, she was here recently, had an extensive workup including CT scan of the abdomen and pelvis, she does not have any peritoneal signs, she does not have any rebound or guarding, otherwise stable to be discharged home follow-up outpatient after she was given medications. Shared decision making: _patient Code status: _ The results of pertinent diagnostic studies and exam findings supporting the discharge from the ED were discussed. The patient?s provisional diagnosis and plan of care were [...] discussed with the patient and family present. Assessment/Plan 1. Epigastric abdominal pain 2. Gastroparesis Orders: sodium chloride, 10 mL, IV Push, Injection, As Indicated, PRN flush, First Dose: 01/25/25 12:34:00 EDT, Dispense From Location: [facility], 01/25/25 12:34:00 EDT Disch (more content not included)... Normal [facility] Lipaseon 01-25-2025 Lipase Lvl 38 IU/L Normal 22-51 [facility] Comment on above: Performed By: #### . Automated Diff #### [address] [address] UA w Culture if Indon 2024 Color (U) Yellow Normal Yellow [facility] Comment on above: Performed By: #### U CI #### [address] [address] Ketones Ql (U) Negative Normal Negative [facility] Comment on above: Performed By: #### U CI #### [address] [address] UA Blood Negative Normal Negative [facility] Comment on above: Performed By: #### U CI #### [address] [address] UA Clarity Clear Normal Clear [facility] Comment on above: Performed By: #### U CI #### [address] [address] UA Glucose Normal Normal Negative [facility] Comment on above: Performed By: #### U CI #### [address] [address] UA Leukocyte Esterase Negative Normal Negative [facility] Comment on above: Performed By: #### U CI #### [address] [address] UA Nitrite Negative Normal Negative [facility] Comment on above: Performed By: #### U CI #### [address] [place] [address] UA pH 6.5 Normal 4.5 - 7.8 [facility] Comment on above: Performed By: #### U CI #### [address] [address] UA Protein Negative Normal Negative [facility] Comment on above: Performed By: #### U CI #### [address] [address] UA Source Clean Catch Normal [facility] Comment on above: Performed By: #### U CI #### [address] [address] UA Spec Grav 1.024 Normal 1.003-1.035 [facility] Comment on above: Performed By: #### U CI #### [address] [address] UA Urobilinogen Normal Normal 0.2 - 1.0 [facility] Comment on above: Performed By: #### U CI #### [address] [address] Urobilinogen (U) [Mass/Vol] Negative Normal Negative [facility] Comment on above: Performed By: #### U CI #### [address] [address] [facility]-20[facility] GAEL RUBY ([id number]) 1995 F Date Time Provider Department 01/22/25 YAJAIRA LACKEY During your visit today, we recorded the following information about you: Donna Saini, RN 01/22/2025 11:43 AM Signed PA for Gimoti (renewal) submitted to [facility] via facsimile at [phone]. Awaiting response from [employer] [place] [employer]. Patient has been being treated with Gimoti/Metoclopramide Nasal [place] since 12/02/2024 and it works best for her plan of care. Spoke with patient (identified by two identifiers), tried/failed/ineffecti ve: Dulcolax/Bisacodyl, OTC, 09/23/2024-current Miralax/Polyethylene Glycol 08/13/2024-current Colace/Docusate Sodium, OTC, 04/23/2025-current Reglan/Metoclopramide 10 mg tablet 05/20/2024-12/15/2024 Karla Mcnally RN 01/25/2025 10:49 AM Signed Fax received from [place] [employer] with DENIAL for Metoclopramide HCL because: Documentation must be submitted by the prescriber showing the member has tried and failed the existing FDA approved therapies. Patient was previously approved for Gimoti and has tried and failed oral Reglan. Called and spoke with Varsha at [facility] and they will call insurance to see why was denied. Denial letter faxed to [facility] with fax verification received. Denial letter scanned into patient's chart. Called [place] [employer] at [phone] and spoke with c s s representative and an expedited appeal (response in 3-4 business days) for Gimoti was filed over the phone. Awaiting response Determination will be faxed to office in 3-4 days Allergies As of Date: 01/22/2025 Noted Allergy Reaction KETOROLAC 01/23/2013 9 - Itching 12 - Shortness of Breath MEPERIDINE 02/26/2016 9 - Itching 12 - Shortness of Breath Comments: UNKNOWN REACTION EGG 12/02/2024 8 - GI Upset KIWI (ACTINIDIA CHINENSIS) 06/03/2023 9 - Itching LATEX 02/27/2016 9 - Itching Comments: Pruritis AMOXICILLIN 02/26/2016 2 - Rash Comments: hives PENICILLINS 02/27/2016 2 - Rash Comments: hives PHENAZOPYRIDINE 02/27/2016 1 - Mental Status Change 14 - Other: See Comments Date Reviewed: 01/13/2025 Reviewed by: Jessica Ayers RN - Fully Assessed Reason for Visit: Medication Authorization [1088] Cmt: PA for Gimoti (renewal) Prescriptions as of 01/25/2025 - pantoprazole DR (PROTONIX) 40 mg tablet Take 1 tablet by mouth two times a day. Start taking medication after procedure for 4 weeks. - prochlorperazine (COMPAZINE) 5 mg tablet Take 5 mg by mouth. - polyethylene glycol 3350 (MIRALAX ORAL) Take 17 g by mouth. - pantoprazole DR (PROTONIX) 40 mg tablet 40 mg. - ondansetron orally disintegrating (ZOFRAN ODT) 4 mg disintegrating tablet 4 mg. - LANTUS SOLOSTAR U-100 INSULIN 100 unit/mL (3 mL) Inject 25 Units subcutaneously daily at bedtime. Taking 30 units at night - JARDIANCE 10 mg tablet Take 10 mg by mouth. - PROZAC 40 mg capsule Take 40 mg by mouth. - glipiZIDE (GLUCOTROL) 10 mg tablet Take 20 mg by mouth. - atorvastatin (LIPITOR) 40 mg tablet Take 40 mg by mouth. - metoclopramide HCl (GIMOTI) 15 mg/spray nasal spray Use 1 [place] in the nose four times daily. Medication notes this encounter GIMOTI 15 MG/SPRAY NASAL SPRAY WITH PUMP >> Donna Saini RN 01/22/2025 11:43 AM >> DONNA SAINI SatJanuary 22, 2025 11:43 AM PA for Gimoti (renewal) submitted to [facility] via facsimile at [phone]. Awaiting response from [employer] [place] [employer]. Problem List As Of Date 01/22/2025 Noted Resolved Chronic pancreatitis (HCC) [K86.1] 11/05/2024 DDD (degenerative disc disease), lumbar [M51.36*07/29/2023 Diabetic gastroparesis associated with type 2 d*04/29/2024 Dyslipidemia [E78.5] 10/08/2024 Essential hypertension [I10] 12/23/2024 Factor V Leiden (HCC) [D68.51] 12/23/2024 Gastroesophageal reflux disease [K21.9] 01/08/2024 History of pulmonary embolism [Z86.711] 12/23/2024 Hypercoagulable state (HCC) [D68.59] 08/03/2020 Mild concentric left ventricular hypertrophy (L*04/04/2020 Nonalcoholic fatty liver [K76.0] 07/09/2024 Obesity with body mass index 30 or greater [E66*03/25/2017 Steatosis of liver [K76.0] 06/01/2024 Type 2 diabetes mellitus (HCC) [E11.9] 12/25/2023 Mild intermittent asthma without complication (*12/24/2024 Encounter Status:Closed by DONNA SAINI on 01/22/25 Normal [facility] .UA Microscp Aon 01-18-2025 UA Mucus Present Normal Absent [facility] Comment on above: Performed By: #### . Automated Diff #### [place] [address] UA RBC Quant 0 /HPF Normal 0-5 [facility] Comment on above: Performed By: #### . Automated Diff #### [place] [address] UA Squepi Cells Quant <1 Normal 0-29 [facility] Comment on above: Performed By: #### . Automated Diff #### [place] [address] UA WBC Quant 0 /HPF Normal 0-5 [facility] Comment on above: Performed By: #### . Automated Diff #### [place] [address] .eGFRon 01-18-2025 GFR/1.73 sq M.predicted MDRD (S/P/Bld) [Vol rate/Area] mL/min/{1.73_m2} Normal >=60 [facility] Comment on above: Result Comment: [facility] have implemented the eGFR calculation [...] 1 Age = years Performed By: #### . Urinalysis Microscopic Auto #### [id number] CBC w/ Diffon 01-18-2025 Erythrocyte distribution width (RBC) [Ratio] 14.0 % Normal 11.6-14.8 [facility] Comment on above: Performed By: #### C BC #### [address] [id number] Hematocrit (Bld) [Volume fraction] 44.3 % Normal 36.0-46.0 [facility] Comment on above: Performed By: #### C BC #### [id number] Hemoglobin (Bld) [Mass/Vol] 15.1 g/dL Normal 12.0-16.0 [facility] Comment on above: Performed By: #### C BC #### [id number] MCH (RBC) [Entitic mass] 30.0 pg Normal 27.0-35.0 [facility] Comment on above: Performed By: #### C BC #### [id number] MCHC 34.2 % Normal 31.0-37.0 [facility] Comment on above: Performed By: #### C BC #### [address] [address] MCV (RBC) [Entitic vol] 87.8 fL Normal 80.0-100.0 [facility] Comment on above: Performed By: #### C BC #### [address] [address] Platelet 344 x10*3/mcL Normal 150-450 [facility] Comment on above: Performed By: #### C BC #### [address] [address] Platelet mean volume (Bld) [Entitic vol] 8.4 fL Normal 6.7-10.6 [facility] Comment on above: Performed By: #### C BC #### [address] [address] RBC 5.04 x10*6/mcL Normal 3.80-5.20 [facility] Comment on above: Performed By: #### C BC #### [address] [address] WBC 12.5 x10*3/mcL High 4.5-11.0 [facility] Comment on above: Performed By: #### C BC #### [address] [address] CMPon 01-18-2025 Albumin [Mass/Vol] 3.6 g/dL Normal 3.2-4.9 [facility] Comment on above: Performed By: #### . Automated Diff #### [address] [address] Albumin/Globulin [Mass ratio] 1.0 {ratio} Low 1.1-2.2 [facility] Comment on above: Performed By: #### . Automated Diff #### [address] [address] Alk Phos 72 IU/L Normal 32-91 [facility] Comment on above: Performed By: #### . Automated Diff #### [address] [address] ALT [Catalytic activity/Vol] 34 U/L Normal 14-54 [facility] Comment on above: Performed By: #### . Automated Diff #### [address] [address] Anion gap [Moles/Vol] 8 mmol/L Normal 4-12 [facility] Comment on above: Performed By: #### . Automated Diff #### [address] [address] AST [Catalytic activity/Vol] 27 U/L Normal 15-41 [facility] Comment on above: Performed By: #### . Automated Diff #### [address] [address] Bili Total 0.9 mg/dL Normal 0.3-1.2 [facility] Comment on above: Performed By: #### . Automated Diff #### [address] [address] Calcium [Mass/Vol] 9.2 mg/dL Normal 8.5-10.3 [facility] Comment on above: Performed By: #### . Automated Diff #### [address] [address] [address] Chloride [Moles/Vol] 104 mmol/L Normal 98-110 [facility] Comment on above: Performed By: #### . Automated Diff #### [address] [address] CO2 [Moles/Vol] 24 mmol/L Normal 22-32 [facility] Comment on above: Performed By: #### . Automated Diff #### [address] [address] Creatinine [Mass/Vol] 0.77 mg/dL Normal 0.44-1.03 [facility] Comment on above: Performed By: #### . Automated Diff #### [address] [address] Glucose [Mass/Vol] 200 mg/dL High 70-99 [facility] Comment on above: Performed By: #### . Automated Diff #### [address] [address] Potassium [Moles/Vol] 4.2 mmol/L Normal 3.4-4.8 [facility] Comment on above: Performed By: #### . Automated Diff #### [address] [address] Protein [Mass/Vol] 7.1 g/dL Normal 6.5-8.1 [facility] Comment on above: Performed By: #### . Automated Diff #### [address] [address] Sodium [Moles/Vol] 136 mmol/L Normal 133-142 [facility] Comment on above: Performed By: #### . Automated Diff #### [address] [address] Urea nitrogen [Mass/Vol] 9 mg/dL Normal 8-26 [facility] Comment on above: Performed By: #### . Automated Diff #### [address] [address] Urea nitrogen/Creatinine [Mass ratio] 11.7 mg/mg Normal 10.0-20.0 [facility] Comment on above: Performed By: #### . Automated Diff #### [address] [address] Diff Autoon 01-18-2025 Baso Absolute 0.1 x10*3/mcL Normal 0.0-0.2 [facility] Comment on above: Performed By: #### . Automated Diff #### [address] [address] Basophils/100 WBC (Bld) 1.0 % Normal 0.0-1.5 [facility] Comment on above: Performed By: #### . Automated Diff #### [address] [address] Eos Absolute 0.2 x10*3/mcL Normal 0.0-0.4 [facility] Comment on above: Performed By: #### . Automated Diff #### [address] [address] Eosinophils/100 WBC (Bld) 1.5 % Normal 0.0-5.4 [facility] Comment on above: Performed By: #### . Automated Diff #### [address] [address] Lymph Absolute 4.3 x10*3/mcL Normal 1.0-4.8 [facility] Comment on above: Performed By: #### . Automated Diff #### [address] [address] Lymphocytes/100 WBC (Bld) 34.7 % Normal 27.2-40.8 [facility] Comment on above: Performed By: #### . Automated Diff #### [address] [address] [place] Absolute 0.6 x10*3/mcL Normal 0.1-1.1 [facility] Comment on above: Performed By: #### . Automated Diff #### [address] [address] Monocytes/100 WBC (Bld) 5.0 % Normal 3.7-11.9 [facility] Comment on above: Performed By: #### . Automated Diff #### [address] [address] Neutro Absolute 7.2 x10*3/mcL Normal 1.8-7.7 [facility] Comment on above: Performed By: #### . Automated Diff #### [address] [address] Neutro Auto 57.8 % Normal 47.2-70.8 [facility] Comment on above: Performed By: #### . Automated Diff #### [address] [address] ED Clinical Summaryon 2024 ED Clinical Summary [address] [id number] ED Clinical Summary Person Information Name: Gael Ruby/[place] Age: 29 Years : 1995 Sex: Female PCP: Chantel GREWAL, Yossi Paz Marital Status: Race: White Ethnicity: Not or Language: Somali Visit Reason: Abdominal pain; abdominal surgery Acuity: 3 Enc Type: Emergency Med Service: Emergency Medicine Arrival: 01/18/2025 18:50:49 Discharge: 01/18/2025 20:23:00 LOS: 000 01:33 Checkin: 01/18/2025 18:50:49 Checkout: 01/18/2025 20:23:00 Dispo Type: Home or Self Care Address: [address] [place] [phone] Provider Notes: History of Present Illness Patient is a 29 year old female with a history of gastroparesis presenting to the ED complaining of epigastric and right upper quadrant pain onset few days ago and worsening since initial onset.? Patient mention she had a Pap procedure for her gastroparesis at the [facility] last week and has been on a liquid diet for the last 8 days.? Chronic nausea unchanged from baseline.? Other prior abdominal surgeries include cholecystectomy. Review of Systems As reviewed in the HPI. All other systems reviewed are negative or normal. Physical Exam Constitutional: the patient appears in no acute distress, alert, awake, non-toxic? Head/face:?exam is negative for obvious evidence of injury or deformity ? Eyes:?Pupils: equal, round, and reactive to light. ?Sclera: no appreciated abnormality ? ENT:?Exam is negative for injury or acute deformity ? Neck:?External neck: no acute changes, Trachea: is midline with no obvious abnormalities, ROM/movement: no acute changes, Meningeal signs: are not present. ? Cardiovascular:?Rate: normal, Rhythm: regular, Pulses: no pulse deficits are appreciated, Heart sounds: normal, Edema: is not appreciated, JVD: is not appreciated. ? Respiratory:?Exam negative for respiratory distress, Respirations: normal, Breath sounds: are normal, no acute changes, throughout. ? Abdomen / GI Exam:?negative for guarding, pulsatile mass, rebound tenderness, Inspection: abdomen appears normal, Bowel sounds: normal, active, Palpitation: abdomen is soft with epigastric tenderness, Indicators: Aquino?s sign is negative, McBurney?s point is not-tender. ? Back:?Exam negative for acute changes, CVA tenderness. ? Musculoskeletal/extrem ity:?Extremities: all appear grossly normal, with no appreciated pain with palpation, Perfusion: the patient is warm, the extremity is warm. ?Sensation intact. DVT exam: no swelling no tenderness,?Calves: are non-tender. ? Skin:?Exam negative for cyanosis, any evidence of obvious injury, Appearance: appears normal. ? Neuro:??Orientation: is normal, appropriate for stated age, no acute changes, Mentation: able to follow commands, cerebellar function: is grossly normal, no acute changes, Motor: strength is normal, strength is 5/5 in all extremities, Sensation: no obvious gross deficits. ? Psych:?Exam negative for acute changes, delusions, inappropriate behavior. Reexamination/Reevalua tion MEDICAL DECISION MAKING Number and Complexity of Problems Differential Diagnosis: _Acute colitis, acute diverticulitis,?inflam atory ?bowel disease ? [facility] Data External documents reviewed: _Cerner documentation My EKG interpretation: _ My CT interpretation: _ My X-ray interpretation: _ My Ultrasound interpretation: _ Decision rules/scores evaluated: _ Discussed with: _ ? Decision rules/scores evaluated: _ ? HEART Score: Not Completed ? PERC Rule: _ ? NEXUS C-spine Criteria: _ ? [place] Ankle Rule: _ ? [place] Knee Rule: _ ? Wells Criteria for DVT: _ ? Wells Criteria for PE: _ ? Discussed with: _ ? Treatment and Disposition ED Course: _This is a 29-year-old female presents to the emergency department for evaluation of abdominal pain, arrival to the emergency department patient was noted to be hemodynamically stable,?does have mild periumbilical tenderness?there is no rebound or guarding, no peritoneal signs,?laboratory studies showing?mild leukocytosis of 12.5 which has been seen previously?on her prior laboratory studies from April, no transaminitis,?no acute kidney injury, the rest of the laboratory studies were reassuring?repeat abdominal examination was reassuring as well as to be discharged home?follow-up outpatient as instructed. ? ? Shared decision making: _patient and her sig other Code status: _ ? The results of pertinent diagnostic studies and exam findings supporting the discharge from the ED were discussed. The patient?s provisional diagnosis and plan of care were discussed with the patient and present family. The patient and/or present family expressed understanding of the diagnosis and plan. The nurse was instructed to provide written instructions and appropriate follow-up information. The patie (more content not included)... Normal [facility] ED Note-Physicianon 04-28-20 25 ED Note-Physician Chief Complaint Patient here with upper abdominal pain. [facility] Patient had some discomfort since surgery, but started feeling worse since yesterday, and just having generalized weakness. History of Present Illness Patient is a 29 year old female with a history of gastroparesis presenting to the ED complaining of epigastric and right upper quadrant pain onset few days ago and worsening since initial onset. Patient mention she had a Pap procedure for her gastroparesis at the [facility] last week and has been on a liquid diet for the last 8 days. Chronic nausea unchanged from baseline. Other prior abdominal surgeries include cholecystectomy. Review of Systems As reviewed in the HPI. All other systems reviewed are negative or normal. Physical Exam Constitutional: the patient appears in no acute distress, alert, awake, non-toxic Head/face: exam is negative for obvious evidence of injury or deformity Eyes: Pupils: equal, round, and reactive to light. Sclera: no appreciated abnormality ENT: Exam is negative for injury or acute deformity Neck: External neck: no acute changes, Trachea: is midline with no obvious abnormalities, ROM/movement: no acute changes, Meningeal signs: are not present. Cardiovascular: Rate: normal, Rhythm: regular, Pulses: no pulse deficits are appreciated, Heart sounds: normal, Edema: is not appreciated, JVD: is not appreciated. Respiratory: Exam negative for respiratory distress, Respirations: normal, Breath sounds: are normal, no acute changes, throughout. Abdomen / GI Exam: negative for guarding, pulsatile mass, rebound tenderness, Inspection: abdomen appears normal, Bowel sounds: normal, active, Palpitation: abdomen is soft with epigastric tenderness, Indicators: Aquino?s sign is negative, McBurney?s point is not-tender. Back: Exam negative for acute changes, CVA tenderness. Musculoskeletal/extrem ity: Extremities: all appear grossly normal, with no appreciated pain with palpation, Perfusion: the patient is warm, the extremity is warm. Sensation intact. DVT exam: no swelling no tenderness, Calves: are non-tender. Skin: Exam negative for cyanosis, any evidence of obvious injury, Appearance: appears normal. Neuro: Orientation: is normal, appropriate for stated age, no acute changes, Mentation: able to follow commands, cerebellar function: is grossly normal, no acute changes, Motor: strength is normal, strength is 5/5 in all extremities, Sensation: no obvious gross deficits. Psych: Exam negative for acute changes, delusions, inappropriate behavior. Vitals & Measurements HR: 86 (Peripheral) BP: 120/76 SpO2: 96% HT: 172 cm WT: 110.7 kg (Dosing) Additional Vitals No qualifying data available. Procedure No qualifying data available. ASA Documentation Medical Decision Making Ally Kelly scribing for and in the presence of Dr. Dorcas Burden Attestation: The information in this document, created by the medical grade shoemaker for me, accurately reflects the services I personally performed and the decisions made by me. This report has been created using voice recognition software. It may contain minor errors which are inherent in voice recognition technology. Reexamination/Reevalua tion MEDICAL DECISION MAKING Number and Complexity of Problems Differential Diagnosis: _Acute colitis, acute diverticulitis, inflamatory bowel disease [facility] Data External documents reviewed: _Cerner documentation My EKG interpretation: _ My CT interpretation: _ My X-ray interpretation: _ My Ultrasound interpretation: _ Decision rules/scores evaluated: _ Discussed with: _ Decision rules/scores evaluated: _ ? HEART Score: Not Completed ? PERC Rule: _ ? NEXUS C-spine Criteria: _ ? [place] Ankle Rule: _ ? [place] Knee Rule: _ ? Wells Criteria for DVT: _ ? Wells Criteria for PE: _ Discussed with: _ Treatment and Disposition ED Course: _This is a 29-year-old female presents to the emergency department for evaluation of abdominal pain, arrival to the emergency department patient was noted to be hemodynamically stable, does have mild periumbilical tenderness there is no rebound or guarding, no peritoneal signs, laboratory studies showing mild leukocytosis of 12.5 which has been seen previously on her prior laboratory studies from April, no transaminitis, no acute kidney injury, the rest of the laboratory studies were reassuring repeat abdominal examination was reassuring as well as to be discharged home follow-up outpatient as instructed. Shared decision making: _patient and her sig other Code status: _ The results of pertinent diagnostic studies and exam findings supporting the discharge from the ED were discussed. The patient?s provisional diagnosis and plan of care were discussed with the patient and present family. The patient and/or present family expressed understanding of the diagnosis and plan. The nurse was instructed to provide written instructions and appropriate follo (more content not included)... Normal [facility] Lipaseon 01-18-2025 Lipase Lvl 45 IU/L Normal 22-51 [facility] Comment on above: Performed By: #### . Automated Diff #### [address] [address] UA w Culture if Indon 2024 Color (U) Yellow Normal Yellow [facility] Comment on above: Performed By: #### . Automated Diff #### [place] [address] Glucose (U) [Mass/Vol] 70 mg/dL Abnormal Negative Bl [facility] Comment on above: Performed By: #### . Automated Diff #### [address] [address] Ketones Ql (U) Negative Normal Negative [facility] Comment on above: Performed By: #### . Automated Diff #### [address] [address] UA Blood Negative Normal Negative [facility] Comment on above: Performed By: #### . Automated Diff #### [address] [address] UA Clarity Clear Normal Clear [facility] Comment on above: Performed By: #### . Automated Diff #### [address] [address] UA Leukocyte Esterase Negative Normal Negative [facility] Comment on above: Performed By: #### . Automated Diff #### [address] [address] UA Nitrite Negative Normal Negative [facility] Comment on above: Performed By: #### . Automated Diff #### [address] [address] UA pH 6.0 Normal 4.5 - 7.8 [facility] Comment on above: Performed By: #### . Automated Diff #### [address] [address] UA Protein Negative Normal Negative [facility] Comment on above: Performed By: #### . Automated Diff #### [address] [address] UA Source Clean Catch Normal [facility] Comment on above: Performed By: #### . Automated Diff #### [address] [address] UA Spec Grav 1.026 Normal 1.003-1.035 [facility] Comment on above: Performed By: #### . Automated Diff #### [address] [address] UA Urobilinogen 2 mg/dL Abnormal 0.2 - 1.0 [facility] Comment on above: Performed By: #### . Automated Diff #### [place] [address] Urobilinogen (U) [Mass/Vol] Negative Normal Negative [facility] Comment on above: Performed By: #### . Automated Diff #### [place] [address] ANES POSTPROC EVALon 025 ANES POSTPROC EVAL HNO ID: [id number] Author: BRUNO ALCANTARA DO Service: Anesthesiology Author Type: Anesthesiologist Type: Anesthesia Postprocedure Evaluation Filed: 01/13/2025 13:40 Note Text: POST ANESTHESIA EVALUATION NOTE : 1995 Procedure Summary Date: 01/13/25 Room / Location: [facility] Anesthesia Start: 804 Anesthesia Stop: 909 Procedure: EGD - THERAPEUTIC, EUS, OR TUBE INTERVENTIONS Diagnosis: Gastroparesis (Established gastroparesis) Scheduled Providers: Ronaldo Sánchez DO Responsible Provider: Bruno Alcantara DO Anesthesia Type: general ASA Status: 3 Anesthesia Type: general Airway Type: ETT Last Vitals Vitals Value Taken Time BP 124/77 01/13/25 1015 Temp 36 01/13/25 1340 Pulse 83 01/13/25 1016 Resp 30 01/13/25 1016 SpO2 94 % 01/13/25 1016 Vitals shown include unfiled device data. Post Anesthesia Patient Status Patient Evaluation: bedside. Neurological Status: aware and responsive. Pulmonary Status: breathing comfortably on room air Airway Control: returned to baseline unsupported. Cardiovascular Status: stable. Pain Management: clinically adequate Postoperative Hydration: acceptable. Intraoperative Events: no significant anesthesia events Post Operative Nausea/Vomiting Status: no significant post operative nausea or vomiting Recommendation: continue current plan of care. Anesthesia Observations No Documentation SIGNATURE: Bruno Alcantara DO PATIENT NAME: Gael Ruby DATE: January 13, 2025 TIME: 1:40 PM CSN: [id number] [facility] ANES PRE-OPon 01-13-2025 ANES PRE-OP HNO ID: [id number] Author: BRUNO ALCANTARA DO Service: Anesthesiology Author Type: Anesthesiologist Type: Anesthesia Preprocedure Evaluation Filed: 01/13/2025 07:13 Note Text: ANESTHESIOLOGY DAY OF SURGERY NOTE : 1995 Procedure Information Date/Time: 01/13/25729 Scheduled providers: Ronaldo Sánchez DO Procedure: EGD - THERAPEUTIC, EUS, OR TUBE INTERVENTIONS Location: [facility] Estimated body mass index is 37.11 kg/m? as calculated from the following: Height as of 12/24/24: 172.7 cm (5' 8 ). Weight as of 12/24/24: 110.7 kg (244 lb 0.8 oz). Most recent hematocrit and potassium results: Hematocrit 45.4 10/16/2024 Potassium 4.1 10/16/2024 Relevant Problems CARDIO (+) Essential hypertension ENDO (+) Type 2 diabetes mellitus (HCC) GI (+) Gastroesophageal reflux disease -RENAL (+) Nonalcoholic fatty liver (+) Steatosis of liver NEURO-PSYCH (+) History of pulmonary embolism PULMONARY (+) Mild intermittent asthma without complication (HCC) I - PHYSICAL EVALUATION AIRWAY Patient intubated: No. Tracheostomy tube not present Mallampati: I. TM distance: >3 FB. Neck ROM: full ROM without neurological symptoms. Mouth opening: adequate. Short neck: no. Thick neck: no DENTAL Dental findings: teeth intact. Additional exam findings: no II - ANESTHESIA PLAN ASA Score: 3 Anesthetic Plan: general Airway type: ETT NPO Status: adequate Beta [place] Monitoring Plan Monitoring plan: standard ASA. Post Procedure Analgesic Plan Postoperative analgesic plan: parenteral or oral opioids. Informed Consent Anesthetic risks, benefits, alternatives, personnel and consent discussed: yes. Patient / Responsible Libertarian agrees to proceed: yes Patient / Surrogate agrees to blood products: blood products not planned Significant changes in the patient condition since the History and Physical, not otherwise documented in primary service progress note: no. Potential Anesthesia issues that may suggest increased risk of complications or contraindication to planned procedure: none. Vitals Value Taken Time BP 149/89 01/13/25619 Pulse 82 01/13/25619 Resp 16 01/13/25619 Temp 36.4 ?C (97.5 ?F) 01/13/25619 SpO2 96 % 01/13/25619 Outpatient Medications as of 01/13/[address] (PROTONIX) 40 mg tablet 40 mg. LANTUS SOLOSTAR U-100 INSULIN 100 unit/mL (3 mL) Inject 25 Units subcutaneously daily at bedtime. Taking 30 units at night PROZAC 40 mg capsule Take 40 mg by mouth. glipiZIDE (GLUCOTROL) 10 mg tablet Take 20 mg by mouth. atorvastatin (LIPITOR) 40 mg tablet Take 40 mg by mouth. metoclopramide HCl (GIMOTI) 15 mg/spray nasal spray Use 1 [place] in the nose four times daily. sucralfate (CARAFATE) 1 gram tablet Take 1 tablet by mouth two times a day. Start taking medication after procedure for [address] (PROTONIX) 40 mg tablet Take 1 tablet by mouth two times a day. Start taking medication after procedure for 4 weeks. prochlorperazine (COMPAZINE) 5 mg tablet Take 5 mg by mouth. polyethylene glycol 3350 (MIRALAX ORAL) Take 17 g by mouth. ondansetron orally disintegrating (ZOFRAN ODT) 4 mg disintegrating tablet 4 mg. JARDIANCE 10 mg tablet Take 10 mg by mouth. Facility-Administered Medications as of 01/13/2025 Medication Dose Route Frequency lactated ringers iv infusion 5-30 mL/hr INTRAVENOUS CONTINUOUS ciprofloxacin iv piggyback 400 mg in D5W 200 mL (CIPRO) 400 mg INTRAVENOUS Pre-Op Once And metroNIDAZOLE iv piggyback 500 mg in NaCl (iso-osmotic) 100 mL (FLAGYL) 500 mg INTRAVENOUS Pre-Op Once I have interviewed and examined the patient. I have reviewed the medical record and/or the pre-anesthesia evaluation, pertinent labs, and test results. This contains updated information obtained within 48 hours of Surgery/Procedure. SIGNATURE: Bruno Alcantara DO PATIENT NAME: Gael uRby DATE: January 13, 2025 TIME: 7:13 AM CSN: [id number] [facility] HISTORY PHYSICALon HISTORY PHYSICAL HNO ID: [id number] Author: WOODROW ROMERO PA-C Service: Urology Author Type: Physician Information Systems Security Developer Type: H&P Filed: 01/13/2025 06:57 Note Text: UPDATED HISTORY AND PHYSICAL EXAMINATION SERVICE DATE: 01/13/2025 SERVICE TIME: 6:34 AM SERVICE: Dr. Sánchez PHYSICAL EXAM MUST BE COMPLETED ON ADMISSION The History and Physical (completed in the past 30 days) has been reviewed and the patient has been examined. The contents accurately reflect the patient's condition with the following additions or revisions since the HANDP was completed. Patient denies any changes to health since last examination. Planned procedure for today is EGD with POP. Medication reconciliation list reviewed in [employer]. Past medical history, past surgical history, social history and family history reviewed and updated in [employer]. ALLERGIES Allergen Reactions Ketorolac Itching, Shortness of Breath Meperidine Itching, Shortness of Breath UNKNOWN REACTION Egg GI Upset Kiwi (Actinidia Chi* Itching Latex Itching Pruritis Amoxicillin Rash hives Penicillins Rash hives Phenazopyridine Mental Status Change, Other: See Comments BP 149/89 Pulse 82 Temp 36.4 ?C (97.5 ?F) (Temporal) Resp 16 LMP (LMP Unknown) SpO2 96% Examination indicates no changes. On examination today: Lungs: Clear to auscultation bilaterally. Heart: RRR, Normal S1/S2, No murmurs, rubs, gallops or thrills appreciated. Abdomen: BS+ in all quadrants, abdomen is soft, non tender, and without guarding. Assessment: Gastroparesis Plan: EGD with POP This HANDP can be found in the Electronic Medical Record dated 12/24/24 by Imelda Huynh MD . SIGNATURE: Woodrow Romero PA-C PATIENT NAME: Gael Rbuy DATE: January 13, 2025 TIME: 6:34 AM [facility] Pathology biopsy report Kenan (Tiss)on 01-13-2025 ADDENDUM 1: [facility] Comment on above: Order Comment: Cynthia membreno Type: BLOOD SPECIMEN Ordering Facility: [facility] Address: [address] [place] [address] Result Comment: A. A n immunohistochemical stain for Helicobacter is negative. Laboratory Developed Test (LDT) Disclaimer: Performance characteristics of immunohistochemical, immunofluorescent and chromogenic in-situ hybridization tests have been determined by the performing laboratory within [facility] Department ([facility], [facility], [facility], [facility], [facility], [facility], or [facility]) in a manner consistent with CLIA requirements. One or more of these tests have not been cleared or approved by the FDA. [facility] is regulated under CLIA as qualified to perform high-complexity testing. These tests are used for clinical purposes. They should not be regarded as investigational or for research. Positive and negative controls stain appropriately. Addendum electronically signed by Roel Banda MD on 01/28/2025 at 2152 EDT Performed By: #### 2 458-8, 2465-3, 2472-9 #### [facility] CLIA [id number] [address] [place] [address] OF [facility] AP DISCLAIMER [facility] Comment on above: Order Comment: Cynthia membreno Type: BLOOD SPECIMEN Ordering Facility: [facility] Address: [address] [place] [address] Result Comment: Lyn hutchinson Developed Test (LDT) Disclaimer: Performance characteristics of immunohistochemical, immunofluorescent, and chromogenic in-situ hybridization tests have been determined by the performing laboratory within [facility] Pathology and Laboratory Medicine Department ([facility], [facility], [facility], [facility], [facility], [facility], or [facility]) in a manner consistent with CLIA requirements. One or more of these tests may not have been cleared or approved by the FDA. [facility] is regulated under CLIA as qualified to perform high-complexity testing. These tests are used for clinical purposes. These should not be regarded as investigational or for research. Positive and negative controls stain appropriately. Performed By: #### 2 458-8, 2465-3, 2472-9 #### [facility] CLIA [id number] [address] [place] [address] [place] CASE REPORT Normal [facility] Comment on above: Order Comment: Cynthia membreno Type: BLOOD SPECIMEN Ordering Facility: [facility] Address: [address] [place] [address] Result Comment: [facility] Pathology Report Case: [id number] Authorizing Provider: Ronaldo Sánchez DO Collected: 01/13/2025 08:50 AM Ordering Location: [facility] Received: 01/13/2025 10:23 AM [facility] Pathologist: Roel Banda MD Specimens: A) - Stomach, Biopsy B) - Esophagus, Mid, Biopsy Performed By: #### 2 458-8, 2465-3, 247-9 #### [facility] CLIA [id number] [address] [place] [address] [place] CLINICAL HISTORY Normal [facility] Comment on above: Order Comment: Cynthia membreno Type: BLOOD SPECIMEN Ordering Facility: [facility] Address: [address] [place] [address] Result Comment: A) R /O H. PYLORI B) R/O EOE Performed By: #### 2 458-8, 2465-3, 247-9 #### [facility] CLIA [id number] [address] [place] [address] [place] FINAL DIAGNOSIS Normal [facility] Comment on above: Order Comment: Cynthia membreno Type: BLOOD SPECIMEN Ordering Facility: [facility] Address: [address] [place] [address] Result Comment: Sammy daigle, biopsy: - Antral mucosa with chronic inactive gastritis. - No morphologic evidence of Helicobacter. B. Esophagus, mid, biopsy: - Squamous mucosa with mild reactive changes. - No increase in intraepithelial eosinophils identified. at 1249 EDT Performed By: #### 2 458-8, 2464-3, 9 #### [facility] CLIA [id number] [address] [place] [address] [place] FINAL PERFORMING LAB Normal [facility] Comment on above: Order Comment: Speci men Type: BLOOD SPECIMEN Ordering Facility: [facility] Address: [address] [place] [address] Result Comment: Diag nostic interpretation performed at: [facility], [address] [place] [address] CLIA# [id number] Air Hoist Operator: Jasmeet Hagan MD Performed By: #### 2 458-8, 2464-3, 2472-05 #### [facility] CLIA [id number] [address] [place], [place] [id number] [place] GROSS DESCRIPTION Normal [facility] Comment on above: Order Comment: Speci men Type: BLOOD SPECIMEN Ordering Facility: [facility] Address: [address] [place] [address] Result Comment: A. S tomach, Biopsy Received in formalin are two pieces of rodriguez and rodriguez-red, soft tissue aggregating to 0.9 x 0.2 x 0.2 cm. Totally submitted in one cassette. B. Esophagus, Mid, Biopsy Received in formalin are two pieces of rodriguez-white and red, soft tissue aggregating to 0.8 x 0.3 x 0.1 cm. Totally submitted in one cassette. AJB January 13, 2025 12:45 PM Gross examination performed at [facility], [address] [place] [address] Performed By: #### 2 458-8, 2464-3, 2472-05 #### [facility] CLIA [id number] [address] [place] [address] [place] Upper GI endoscopyon 025 Upper GI endoscopy [facility] Gastrointestinal Endoscopy Patient Name: Gael Flori Procedure Date: 01/13/2025 6:48 AM Date of : 1995 Admit Type: Outpatient Age: 29 Room: [place] [address] Gender: Female Note Status: Finalized Attending MD: Ronaldo Sánchez MD, [id number] Procedure: Upper GI endoscopy Indications: Gastroparesis, For therapy of gastroparesis Providers: Ronaldo Sánchez MD Patient Profile: Refer to note in patient chart for documentation of history and physical. Patient has symptoms of chronic dyspepsia and chronic vomiting. Referring Physician: Ronaldo Sánchez MD (Referring MD) Medicines: General Anesthesia Complications: No immediate complications. Estimated blood loss: Minimal. Requesting Provider: Procedure: Pre-Anesthesia Assessment: - Prior to the procedure, a History and Physical was performed, and patient medications and allergies were reviewed. The patient is competent. The risks and benefits of the procedure and the sedation options and risks were discussed with the patient. All questions were answered and informed consent was obtained. Patient identification and proposed procedure were verified by the physician, the nurse and the it support analyst in the pre-procedure area in the endoscopy suite. Mental Status Examination: alert and oriented. Airway Examination: normal oropharyngeal airway and neck mobility. Respiratory Examination: clear to auscultation. CV Examination: normal. Prophylactic Antibiotics: The patient requires prophylactic antibiotics Submucosal Dissection. Prior Anticoagulants: The patient has taken no anticoagulant or antiplatelet agents. ASA Grade Assessment: III - A patient with severe systemic disease. After reviewing the risks and benefits, the patient was deemed in satisfactory condition to undergo the procedure. The anesthesia plan was to use general anesthesia. Immediately prior to administration of medications, the patient was re-assessed for adequacy to receive sedatives. The heart rate, respiratory rate, oxygen saturations, blood pressure, adequacy of pulmonary ventilation, and response to care were monitored throughout the procedure. The physical status of the patient was re-assessed after the procedure. After obtaining informed consent, the endoscope was passed under direct vision. Throughout the procedure, the patient's blood pressure, pulse, and oxygen saturations were monitored continuously. The Endoscope was introduced through the mouth, and advanced to the second part of duodenum. The upper GI endoscopy was accomplished without difficulty. The patient tolerated the procedure well. Moderate Sedation: Patient underwent intubation and general anesthesia. No sedation was administered for this procedure. Total Procedure Duration: 0 hours 33 minutes 15 seconds Findings: The oropharynx was normal. Mucosal changes including longitudinal furrows and circumferential folds were found in the middle third of the esophagus. Biopsies were taken with a cold forceps for histology. Verification of patient identification for the specimen was done by the physician, nurse and home appliance technician using the patient's name, date and medical record number. Bilious fluid was found in the stomach. Patchy mild inflammation characterized by erosions was found in the stomach. Biopsies were taken with a cold forceps for Helicobacter pylori testing. Verification of patient identification for the specimen was done by the physician, nurse and home appliance technician using the patient's name, date and medical record number. Estimated blood loss was minimal. Suspect gastroparesis due to patient symptoms. Following the diagnostic portion of the EGD, the endoscope was prepared using a clear cap. The scope was re-advanced into the stomach and a sutable location for pyloromyotomy was utilited on the lesser-curavature of the stomach 3-4cm superior from the pyloric opening. The site was injected with 8mL of saline and methylene blue mixture and a mucosal bleb was raised. A 2.5cm transverse mucosotomy was made with TT knife. The submucosal dissection was carried out using TT knife until the pylorus was identified. Any small vessels within the submucosal tunnel were cauterized. The pyloric muscle was then systematically divided using TT knife electrocautery until the duodenal submucosa was observed. The pylorus was completely divided and there was no evidence of full thickness injury. There was also no evidence of injury to the duodenal mucosa. The tunnel was irrigated and hemostasis was completed. Mucosotomy was closed with 5 clips, spaced 5mm apart. The patient tolerated the procedure well. The examined duodenum was normal. Impression: - Normal oropharynx. - Esophageal mucosal changes suspicious for eosinophilic esophagitis. Biopsied. - Bilious gastric fluid. - Gastritis, c (more content not included)... Normal [facility] CBC with Diffon 01-01-2025 Basophils (Bld) [#/Vol] 0.05 10*3/uL [facility] Basophils/100 WBC (Bld) 0 % 0 - 2 % [facility] Eosinophils (Bld) [#/Vol] 0.12 10*3/uL [facility] Eosinophils/100 WBC (Bld) 1 % 1 - 4 % [facility] Erythrocyte distribution width (RBC) [Ratio] 13.5 % 11.8 - 14.4 % [facility] Hematocrit (Bld) [Volume fraction] 44.9 % 36.3 - 47.1 % [facility] Hemoglobin (Bld) [Mass/Vol] 15.3 g/dL High 11.9 - 15.1 g/dL [facility] Immature granulocytes (Bld) [#/Vol] 0.04 10*3/uL [facility] Immature granulocytes/100 WBC (Bld) 0 % 0 [facility] Interpretation and review of laboratory results Abnormal [facility] Lymphocytes/100 WBC (Bld) 39 % 24 - 43 % [facility] Lymphocytes/100 WBC (Bld) 4.59 % High [facility] MCH (RBC) [Entitic mass] 29.8 pg 25.2 - 33.5 pg [facility] MCHC (RBC) [Mass/Vol] 34.1 g/dL 28.4 - 34.8 g/dL [facility] MCV (RBC) [Entitic vol] 87.4 fL 82.6 - 102.9 fL [facility] Monocytes/100 WBC (Bld) 6 % 3 - 12 % [facility] Monocytes/100 WBC (Bld) 0.75 % [facility] Neutrophils/100 WBC (Bld) 54 % 36 - 65 % [facility] Nucleated RBC/100 WBC (Bld) [Ratio] 0 % 0.0 per 100 WBC [facility] Platelet mean volume (Bld) [Entitic vol] 10.4 fL 8.1 - 13.5 fL [facility] Platelets (Bld) [#/Vol] 313 10*3/uL [facility] RBC (Bld) [#/Vol] 5.14 10*6/uL High 3.95 - 5.1 1 m/uL [facility] Segmented neutrophils/100 WBC (Bld) 6.29 % [facility] WBC other (Bld) [#/Vol] 11.8 High [facility] Abs. Basophil 0.05 k/uL Normal 0.00-0.20 [facility] Comment on above: Performed By: #### C DP, CP, LIP ####[address] , [place] [address] Lab Director: Murtaza Arceo MD Abs.Imm.Granulocyte 0.04 k/uL Normal 0.00-0.30 [facility] Comment on above: Performed By: #### C DP, CP, LIP ####[address] , [facility] Lab Director: Murtaza Arceo MD Abs.Neutrophil (Seg) 6.29 k/uL Normal 1.50-8.10 [facility] Comment on above: Performed By: #### C DP, CP, LIP ####[address] [place] [id number] Lab Director: Murtaza Arceo MD Basophils/100 WBC (Bld) 0 % Normal 0-2 [facility] Comment on above: Performed By: #### C DP CP, LIP ####[address] , [place] [address] Lab Director: Murtaza Arceo MD Eosinophils (Bld) [#/Vol] 0.12 10*3/uL Normal 0.00-0.44 [facility] Comment on above: Performed By: #### C DP, CP, LIP ####[address] , [facility] Lab Director: Murtaza Arceo MD Eosinophils/100 WBC (Bld) 1 % Normal 1-4 [facility] Comment on above: Performed By: #### C DP, CP, LIP ####[address] , [place] [address] Lab Director: Murtaza Arceo MD Erythrocyte distribution width (RBC) [Ratio] 13.5 % Normal 11.8-14.4 [facility] Comment on above: Performed By: #### C DP, CP, LIP ####[address] , [place] [address])[phone] Director: Murtaza Arceo MD Hematocrit (Bld) [Volume fraction] 44.9 % Normal 36.3-47.1 [facility] Comment on above: Performed By: #### C DP, CP, LIP ####[address] , [facility]83[facility])[phone] Director: Murtaza Arceo MD Hemoglobin (Bld) [Mass/Vol] 15.3 g/dL High 11.9-15.1 [facility] Comment on above: Performed By: #### C DP, CP, LIP ####[address] , [facility]83 Lab Director: Murtaza Arceo MD Immature granulocytes/100 WBC (Bld) 0 % Normal 0 [facility] Comment on above: Performed By: #### C DP, CP, LIP ####[address] , [facility] Lab Director: Murtaza Arceo MD Lymphocytes (Bld) [#/Vol] 4.59 10*3/uL High 1.10-3.70 [facility] Comment on above: Performed By: #### C DP, CP, LIP ####[address] , [facility]83[facility])[phone] Director: Murtaza Arceo MD Lymphocytes/100 WBC (Bld) 39 % Normal 24-43 [facility] Comment on above: Performed By: #### C DP, CP, LIP ####[address] , [place] [address] Lab Director: Murtaza Arceo MD MCH (RBC) [Entitic mass] 29.8 pg Normal 25.2-33.5 [facility] Comment on above: Performed By: #### C DP, CP, LIP ####[address] [place] [address] Lab Director: Murtaza Arceo MD MCHC (RBC) [Mass/Vol] 34.1 g/dL Normal 28.4-34.8 [facility] Comment on above: Performed By: #### C DP, CP, LIP ####[address] , [place] [address])[phone] Director: Murtaza Arceo MD MCV (RBC) [Entitic vol] 87.4 fL Normal 82.6-102.9 [facility] Comment on above: Performed By: #### C DP, CP, LIP ####[address] , [place] [address])[phone] Director: Murtaza Arceo MD Monocytes (Bld) [#/Vol] 0.75 10*3/uL Normal 0.10-1.20 [facility] Comment on above: Performed By: #### C DP, CP, LIP ####[address] , [place] [address])[phone] Director: Murtaza Arceo MD Monocytes/100 WBC (Bld) 6 % Normal 3-12 [facility] Comment on above: Performed By: #### C DP, CP, LIP ####[address] , [place] [address])[phone] Director: Murtaza Arceo MD Neutrophil (Seg) 54 % Normal 36-65 [facility] Comment on above: Performed By: #### C DP, CP, LIP ####[address] , [facility]83 Lab Director: Murtaza Arceo MD NRBC Automated 0.0 per 100 WBC Normal 0.0 [facility] Comment on above: Performed By: #### C DP, CP, LIP ####[address] [place] [address] Lab Director: Murtaza Arceo MD Platelet mean volume (Bld) [Entitic vol] 10.4 fL Normal 8.1-13.5 [facility] Comment on above: Performed By: #### C DP CP, LIP ####[facility] , [place] [address] Lab Director: Murtaza Arceo MD Platelets (Bld) [#/Vol] 313 10*3/uL Normal 138-453 [facility] Comment on above: Performed By: #### C VENKAT CP, LIP ####[address] [place] [address] Lab Director: Murtaza Arceo MD RBC (Bld) [#/Vol] 5.14 10*6/uL High 3.95-5.11 [facility] Comment on above: Performed By: #### C ANA ROBLEDO, LIP ####[address] , [facility]83 Lab Director: Murtaza Arceo MD WBC (Bld) [#/Vol] 11.8 10*3/uL High 3.5-11.3 [facility] Comment on above: Performed By: #### C VENKAT CP, LIP ####[address] , [place] [id number] Lab Director: Murtaza Arceo MD [facility] Albumin [Mass/Vol] 4.1 g/dL 3.5 - 5.2 g/dL [facility] Albumin/Globulin [Mass ratio] 1.4 {ratio} 1.0 - 2.5 [facility] ALP [Catalytic activity/Vol] 86 U/L 35 - 104 U/L [facility] ALT [Catalytic activity/Vol] 36 U/L High 10 - 35 U/L [facility] Anion gap [Moles/Vol] 13 mmol/L 9 - 16 mmol/L [facility] AST [Catalytic activity/Vol] 29 U/L 10 - 35 U/L [facility] Bilirubin [Mass/Vol] 0.4 mg/dL 0.00 - 1.20 mg/dL [facility] Calcium [Mass/Vol] 10 mg/dL 8.6 - 10. 4 mg/dL [facility] Chloride [Moles/Vol] 104 mmol/L 98 - 10 7 mmol/L [facility] CO2 [Moles/Vol] 25 mmol/L 20 - 31 mmol/L [facility] Creatinine [Mass/Vol] 0.7 mg/dL 0.50 - 0.90 mg/dL [facility] Est, Glom Filt Rate - PINF [facility] Comment on above: These results are not [...] that affects renal tubular secretion. Glucose [Mass/Vol] 114 mg/dL High 74 - 99 mg/dL [facility] Potassium [Moles/Vol] 3.5 mmol/L Low 3.7 - 5.3 mmol/L [facility] Protein [Mass/Vol] 7.1 g/dL 6.6 - 8.7 g/dL [facility] Sodium [Moles/Vol] 142 mmol/L 136 - 145 mmol/L [facility] Urea nitrogen [Mass/Vol] 9 mg/dL 6 - 20 mg/dL [facility] Urea nitrogen/Creatinine [Mass ratio] 13 mg/mg 9 - 20 [facility] Comp Metabolic Profon 2024 Albumin [Mass/Vol] 4.1 g/dL Normal 3.5-5.2 [facility] Comment on above: Performed By: #### C DP, CP, LIP ####[facility] [place], [place] [address] lab Director: Murtaza Arceo MD Albumin/Glob Ratio 1.4 Normal 1.0-2.5 [facility] Comment on above: Performed By: #### C DP, CP, LIP ####[address] , [place] [address] Lab Director: Murtaza Arceo MD Alkaline Phos 86 U/L Normal 35-104 [facility] Comment on above: Performed By: #### C DP, CP, LIP ####[address] [place] [address] Lab Director: Murtaza Arceo MD ALT [Catalytic activity/Vol] 36 U/L High 10-35 [facility] Comment on above: Performed By: #### C DP, CP, LIP ####[address] [place] [address] lab Director: Murtaza Arceo MD Anion gap [Moles/Vol] 13 mmol/L Normal 9-16 [facility] Comment on above: Performed By: #### C DP, CP, LIP ####[address] [place] [address] Lab Director: Murtaza Arceo MD AST [Catalytic activity/Vol] 29 U/L Normal 10-35 [facility] Comment on above: Performed By: #### C DP, CP, LIP ####[address] , [place] [phone] Lab Director: Murtaza Arceo MD Bilirubin [Mass/Vol] 0.4 mg/dL Normal 0.00-1.20 [facility] Comment on above: Performed By: #### C DP, CP, LIP ####[address] [place] [address] Lab Director: Murtaza Arceo MD BUN/CRE Ratio 13 Normal 9-20 [facility] Comment on above: Performed By: #### C DP, CP, LIP ####[address] [place] [address] lab Director: Murtaza Arceo MD Calcium [Mass/Vol] 10.0 mg/dL Normal 8.6-10.4 [facility] Comment on above: Performed By: #### C VENKAT CP, LIP ####[address] , [place] [address] lab Director: Murtaza Arceo MD Chloride [Moles/Vol] 104 mmol/L Normal 98-107 [facility] Comment on above: Performed By: #### C VENKAT CP, LIP ####[address] , [place] [address] lab Director: Murtaza Arceo MD CO2 [Moles/Vol] 25 mmol/L Normal 20-31 [facility] Comment on above: Performed By: #### C ANA ROBLEDO, LIP ####[address] , [place] [address] lab Director: Murtaza Arceo MD Creatinine [Mass/Vol] 0.7 mg/dL Normal 0.50-0.90 [facility] Comment on above: Performed By: #### C ANA ROBLEDO, LIP ####[address] , [place] [address] lab Director: Murtaza Arceo MD GFR/1.73 sq M.predicted among non-blacks MDRD (S/P/Bld) [Vol rate/Area] mL/min/{1.73_m2} Normal >60 [facility] Comment on above: Result Comment: Thes [...] renal tubular secretion. Performed By: #### C VENKAT CP, LIP ####[address] [place] [address] Lab Director: Murtaza Arceo MD Glucose [Mass/Vol] 114 mg/dL High 74-99 [facility] Comment on above: Performed By: #### C VENKAT CP, LIP ####[address] , [place] [phone] Director: Murtaza Arceo MD Potassium [Moles/Vol] 3.5 mmol/L Low 3.7-5.3 [facility] Comment on above: Performed By: #### C VENKAT CP, LIP ####[address] [place] [address] Lab Director: Murtaza Arceo MD Protein [Mass/Vol] 7.1 g/dL Normal 6.6-8.7 [facility] Comment on above: Performed By: #### C ANA ROBLEDO, LIP ####[address] , [place] [phone] Director: Murtaza Arceo MD Sodium [Moles/Vol] 142 mmol/L Normal 136-145 [facility] Comment on above: Performed By: #### C ANA ROBLEDO, LIP ####[address] [place] [address] Lab Director: Murtaza Arceo MD Urea nitrogen [Mass/Vol] 9 mg/dL Normal 6-20 [facility] Comment on above: Performed By: #### C ANA ROBLEDO, LIP ####[address] [place] [address] Lab Director: Murtaza Arceo MD Flu A/B Ag Detectionon 01-01 Flu A Ag Detection Negative Normal NEG [facility] Comment on above: Result Comment: for Influenza A Antigen Performed By: #### F TANIABA ####[address] [place] [address] Lab Director: Murtaza Arceo MD Flu B Ag Detection Negative Normal NEG [facility] Comment on above: Result Comment: for Influenza B Antigen. Performed By: #### F LUABA ####[facility] [place] [id number] [facility] Director: Murtaza Arceo MD Lactic Acidon 01-01-2025 Lactate (BldV) [Moles/Vol] 1.6 mmol/L 0.5 - 2.2 mmol/L [facility] Lactate [Moles/Vol] 1.6 mmol/L Normal 0.5-2.2 [facility] Comment on above: Performed By: #### L ACTIC ####[facility] [place] [address] lab Director: Murtaza Arceo MD Lipaseon 01-01-2025 Lipase [Catalytic activity/Vol] 65 U/L High 13 - 60 U/L [facility] Lipase [Catalytic activity/Vol] 65 U/L High 13-60 [facility] Comment on above: Performed By: #### C DP, CP, LIP ####[facility] , [facility] lab Director: Murtaza Arceo MD Microscopic Urinalysison Bacteria LM Ql (Urine sed) TRACE Abnormal None [facility] Epithelial cells LM.HPF (Urine sed) [#/Area] 5 TO 10 [facility] Interpretation and review of laboratory results Abnormal [facility] RBC LM.HPF (Urine sed) [#/Area] None [facility] WBC LM.HPF (Urine sed) [#/Area] None [facility] No Panel Informationon 01-01 Interpretation and review of laboratory results Abnormal [facility] Rapid influenza A/B antigens on 01-01-2025 FLUAV Ag Ql (Unsp spec) Negative NEGATIVE [facility] Comment on above: for Influenza A Anti gen FLUBV Ag Ql (Unsp spec) Negative NEGATIVE [facility] Comment on above: for Influenza B Anti gen. [facility] UA w/Reflex Cultureon 2024 Bilirubin, SemiQt,Ur Negative Normal NEG [facility] Comment on above: Performed By: #### U AX, UMICAO ####[facility] , [place] [address] Lab Director: Murtaza Arceo MD Blood, Urine Negative Normal NEG [facility] Comment on above: Performed By: #### U AX, UMICAO ####[address] [place] [address] Lab Director: Murtaza Arceo MD Clarity (U) Clear Normal CLEAR [facility] Comment on above: Performed By: #### U AX, UMICAO ####[address] [place] [address] Lab Director: Murtaza Arceo MD Color (U) Yellow Normal YEL [facility] Comment on above: Performed By: #### U AX, UMICAO ####[address] [place] [address] Lab Director: Murtaza Arceo MD Glucose Ql (U) 3+ mg/dL Abnormal NEG [facility] Comment on above: Performed By: #### U AX, UMICAO ####[address] [place] [address] Lab Director: Murtaza Arceo MD Ketones Ql (U) TRACE Abnormal NEG [facility] Comment on above: Performed By: #### U AX, UMICAO ####[address] [place] [address] Lab Director: Murtaza Arceo MD Leukocyte esterase Test strip Ql (U) Negative Normal NEG [facility] Comment on above: Performed By: #### U AX, UMICAO ####[address] [place] [phone] [facility] Director: Murtaza Arceo MD Nitrite,Ur Negative Normal NEG [facility] Comment on above: Performed By: #### U AX, UMICAO ####[address] [place] [address] lab Director: Murtaza Arceo MD PH,Ur 6.0 Normal 5.0-9.0 [facility] Comment on above: Performed By: #### U AX, UMICAO ####[address] [place] [id number] lab Director: Murtaza Arceo MD Protein Ql (U) Negative Normal NEG [facility] Comment on above: Performed By: #### U AX, UMICAO ####[address] [place] [address] lab Director: Murtaza Arceo MD Spec. [place],Ur 1.025 High 1.010-1.020 [facility] Comment on above: Performed By: #### U AX, UMICAO ####[address] [place] [address] lab Director: Murtaza Arceo MD Urobilinogen,Ur Normal Normal 0.0-1.0 [facility] Comment on above: Performed By: #### U AX, UMICAO ####[address] , [id number] Lab Director: Murtaza Arceo MD Urinalysis with Reflex to Cu ltureon 01-01-2025 Bilirubin Ql (U) Negative NEGATIVE [facility] Clarity (U) Clear Clear [facility] Color (U) Yellow Yellow [facility] Glucose Test strip (U) [Mass/Vol] 3+ Abnormal NEGATIVE mg/dL [facility] Hemoglobin Auto test strip Ql (U) Negative NEGATIVE [facility] Interpretation and review of laboratory results Abnormal [facility] Ketones (U) [Mass/Vol] TRACE Abnormal NEGAT SIMA mg/dL [facility] Leukocyte esterase Test strip Ql (U) Negative NEGATIVE [facility] Nitrite Ql (U) Negative NEGATIVE [facility] pH (U) 6 [pH] 5.0 - 9.0 [facility] Protein (U) [Mass/Vol] Negative NEGAT SIMA mg/dL [facility] Specific gravity (U) [Rel density] 1.025 High 1.010 - 1.020 [facility] Urobilinogen Qn (U) Normal 0.0 - 1. 0 EU/dL [facility] Urinalysis,Microon 5 Bacteria TRACE Abnormal NONE [facility] Comment on above: Performed By: #### U AX, UMICAO ####[facility] , [place] [address] Lab Director: Murtaza Arceo MD Epithelial cells LM Ql (Urine sed) 5 TO 10 Normal 0-25 [facility] Comment on above: Performed By: #### U AX, UMICAO ####[facility] , [place] [address] Lab Director: Murtaza Arceo MD Urine RBC's None Normal 0-2 [facility] Comment on above: Performed By: #### U AX, UMICAO ####[facility] [place] [address] Lab Director: Murtaza Arceo MD Urine WBC's None Normal 0-5 [facility] Comment on above: Performed By: #### U AX, UMICAO ####[facility] , [place] [address] Lab Director: Murtaza Arceo MD HISTORY PHYSICALon 5 HISTORY PHYSICAL HNO ID: [id number] Author: CHAPIN FOOTE APRN.CHIEF MINISTER Service: ? Author Type: Nurse Practitioner Type: H&P Filed: 12/24/2024 11:50 Note Text: [facility] HISTORY AND PHYSICAL EXAMINATION SERVICE DATE: 12/24/2024 SERVICE TIME: 11:50 AM PRIMARY CARE PHYSICIAN: No primary care provider on file. Assessment Patient has the following medical conditions which may affect meli-operative course: Essential hypertension Assessment: -Follows with No primary care provider on file. -Current RX: NONE -BP today: 147/98 Last 5 Encounter BP Readings: Date: BP: 12/02/2024 128/87 10/16/2024 123/68 Mild concentric left ventricular hypertrophy (LVH) Assessment: Per outside records review Echo 2019 [...] of tachycardia was identified from this study. Gastroesophageal reflux disease Assessment: Managing with Pantoprazole (Protonix), Metoclopramide, sucralfate Nonalcoholic fatty liver Assessment: follows with provider at home Alkaline Phosphatase 95 10/16/2024 Bilirubin, Total 0.5 10/16/2024 AST 31 10/16/2024 ALT 36 10/16/2024 Type 2 diabetes mellitus (HCC) Assessment: Follows with [facility] or PCP No primary care provider on file. - Fair control -Current medications: Glipizide Jardiance, lantus -BS checks at home range about 196-200 -Last A1c Hemoglobin A1C (%) Date Value 12/02/2024 7.9 ) Factor V Leiden (HCC) Assessment: Noted per outside records No Anticoagulation See hypercoagulable state below Hypercoagulable state (HCC) Assessment: Per outside records, Factor V Leiden, not on AC - Patient is uncertain if heterozygous -vs- homozygous - Developed bilat PEs 2019 after - Work up revealed Factor V - Completed AC for the PE's for about 3-6 months, then it was d/c'd - Significant family history of thrombosis - father, pat grandfather Dyslipidemia Assessment: managing with Atorvastatin (Lipitor) History of pulmonary embolism Assessment: Noted per outside records - No current AC - Factor V Leiden - See hypercoagulable state above Obesity with body mass index 30 or greater Assessment: BMI 37 Mild intermittent asthma without complication (HCC) Assessment: Stable on current PRN RX, last used rescue inhaler, over 3 months ago - No recent exacerbations - On examination today, breathing easy, lungs CTA Chronic pancreatitis (HCC) Assessment: Per records review Diabetic gastroparesis associated with type 2 diabetes mellitus (HCC) Assessment: HPI ANESTHESIA FINDINGS: Intubation History: No abnormal airway history Significant Anesthesia Considerations: Per patient, very diff IV access; Short TM, MP IV; patient self reports slow to wake potential difficult intubation potential postop nausea/vomiting potential slow emergence potential difficult IV/vein access Airway History: No abnormal airway history Christianson Activity Status Index: METS: Walk indoors, such as around the house (1.75 METs) Do light work around the house, such as dusting or washing dishes (2.70 METs) Take care of self; that is eating, dressing, bathing, using the toilet (2.75 METs) Walk a block or two on level ground (2.75 METs) Do moderate work around the house, such as vacuuming, sweeping floors, or carrying in groceries (3.50 METs) Climb a flight of stairs or walk up a hill (5.50 METs) Participate in moderate recreational activites, such as golf, bowling, dancing, doubles tennis, or throwing a baseball or football (6.00 METs) Participate in strenuous sport, such as swimming, singles tennis, football, basketball, or skiing (7.50 METs) DASI Score: 32.45 (Elliptical routinely with no CP/SOB) Patient denies any chest pain or undue shortness of breath with the above physical activity. Clinical Frailty Scale: 4. Apparently vulnerable STOP-Bang Score: Has or is being treated for high blood pressure BMI greater than 35 kg/m2 Denies snoring loudly Denies feeling tired, fatigued, or sleepy during the daytime Has not been observed to stop breathing or choking/gasping during sleep Patient 50 years old or younger Does not have a large neck Non-male patient STOP-Bang Score: 2 [id number] Score: Age: <65 Sex: female CHF history: No Hypertension history: Yes Stroke/TIA/thromboembo lism history: No Vascular disease history: No Diabetes history: Yes [id number] Score: 3 ASA Class: 3 I - PHYSICAL EVALUATION AIRWAY Patien (more content not included)... Normal [facility] CNPNon 12-15-2024 CNPN Telephone ([employer]) GAEL RUBY ([id number]) 1995 F Date Time Provider Department 12/15/24 RONALDO SÁNCHEZ GENTRU During your visit today, we recorded the following information about you: Richard Peres RN 12/15/2024 2:18 PM Signed Patient scheduled for POP 01/13/2025. Post POP follow up in 4 weeks to be scheduled by GP team. Aware of need for [facility] PACC. Pre and post POP instructions discussed in detail with written copy provided via [employer]. Discussed meds and pended. No other questions/concerns at this time. Abel Beckwith 12/16/2024 8:43 AM Signed Pt scheduled Allergies As of Date: 12/15/2024 Noted Allergy Reaction KETOROLAC 01/23/2013 9 - Itching 12 - Shortness of Breath MEPERIDINE 02/26/2016 9 - Itching 12 - Shortness of Breath Comments: UNKNOWN REACTION EGG 12/02/2024 8 - GI Upset KIWI (ACTINIDIA CHINENSIS) 06/03/2023 9 - Itching LATEX 02/27/2016 9 - Itching Comments: Pruritis AMOXICILLIN 02/26/2016 2 - Rash Comments: hives PENICILLINS 02/27/2016 2 - Rash Comments: hives PHENAZOPYRIDINE 02/27/2016 1 - Mental Status Change 14 - Other: See Comments Date Reviewed: 12/02/2024 Reviewed by: Yajaira Lackey DO - Fully Assessed Reason for Visit: Care Coordination [2305] Cmt: Schedule procedure and follow up appt Primary Visit Diagnosis:Gastroparesi s [K31.84] Order(s):EGD - THERAPEUTIC, EUS, OR TUBE INTERVENTIONS [GI2] Order #: [id number] FUTURE sucralfate (CARAFATE) 1 gram tabletTake 1 tablet by mouth two times a day. Start taking medication after procedure for 4 weeks.Disp: 60 tabletRfl: [address] (PROTONIX) 40 mg tabletTake 1 tablet by mouth two times a day. Start taking medication after procedure for 4 weeks.Disp: 60 tabletRfl: 0 Prescriptions as of 12/16/2024 - sucralfate (CARAFATE) 1 gram tablet Take 1 tablet by mouth two times a day. Start taking medication after procedure for 4 weeks. - pantoprazole DR (PROTONIX) 40 mg tablet Take 1 tablet by mouth two times a day. Start taking medication after procedure for 4 weeks. - prochlorperazine (COMPAZINE) 5 mg tablet Take 5 mg by mouth. - polyethylene glycol 3350 (MIRALAX ORAL) Take 17 g by mouth. - pantoprazole DR (PROTONIX) 40 mg tablet 40 mg. - ondansetron orally disintegrating (ZOFRAN ODT) 4 mg disintegrating tablet 4 mg. - LANTUS SOLOSTAR U-100 INSULIN 100 unit/mL (3 mL) Inject 25 Units subcutaneously. - JARDIANCE 10 mg tablet Take 10 mg by mouth. - PROZAC 40 mg capsule Take 40 mg by mouth. - glipiZIDE (GLUCOTROL) 10 mg tablet Take 20 mg by mouth. - atorvastatin (LIPITOR) 40 mg tablet Take 40 mg by mouth. - metoclopramide HCl (GIMOTI) 15 mg/spray nasal spray Use 1 [place] in the nose four times daily. Problem List As Of Date: 12/15/2024 (None) Prescriptions ordered this encounter Disp Refills Start End SUCRALFATE 1 GRAM TABLET 60 t* 0 12/15/2024 01/14/2025 Route: ORAL Sig: Take 1 tablet by mouth two times a day. Start taking medication after procedure for 4 weeks. PANTOPRAZOLE 40 MG TABLET,DELAYED RE* 60 t* 0 12/15/2024 01/14/2025 Route: ORAL Sig: Take 1 tablet by mouth two times a day. Start taking medication after procedure for 4 weeks. Encounter Status:Closed by RONALDO SÁNCHEZ on 12/15/24 [facility] CNCOon 12-07-2024 CNCO Letter Text Normal [facility] CNPSofi 12-03-2024 CNPN Telephone ([facility]) GAEL RUBY ([id number]) 1995 F Date Time Provider Department 12/03/24 YAJAIRA LACKEY GASTSP During your visit today, we recorded the following information about you: Marques Grijalva MA 12/03/2024 2:04 PM Signed Approved Prior authorization approved Payer: [facility] Note from payer: Your PA request for [id number] was approved for 56 days. The PA# assigned is [id number]. Approved Medication: GIMOTI 15 MG NASAL SPRAY Approval Details Authorization number: [id number] Authorized from December 02, 2024 to January 26, 2025 Electronic appeal: Not supported View History Allergies As of Date: 12/03/2024 Noted Allergy Reaction KETOROLAC 01/23/2013 9 - Itching 12 - Shortness of Breath MEPERIDINE 02/26/2016 9 - Itching 12 - Shortness of Breath Comments: UNKNOWN REACTION EGG 12/02/2024 8 - GI Upset KIWI (ACTINIDIA CHINENSIS) 06/03/2023 9 - Itching LATEX 02/27/2016 9 - Itching Comments: Pruritis AMOXICILLIN 02/26/2016 2 - Rash Comments: hives PENICILLINS 02/27/2016 2 - Rash Comments: hives PHENAZOPYRIDINE 02/27/2016 1 - Mental Status Change 14 - Other: See Comments Date Reviewed: 12/02/2024 Reviewed by: Yajaira Lackey, - Fully Assessed Prescriptions as of 12/03/2024 - prochlorperazine (COMPAZINE) 5 mg tablet Take 5 mg by mouth. - polyethylene glycol 3350 (MIRALAX ORAL) Take 17 g by mouth. - pantoprazole DR (PROTONIX) 40 mg tablet 40 mg. - ondansetron orally disintegrating (ZOFRAN ODT) 4 mg disintegrating tablet 4 mg. - metoclopramide HCl (REGLAN) 10 mg tablet Take 10 mg by mouth. - LANTUS SOLOSTAR U-100 INSULIN 100 unit/mL (3 mL) Inject 25 Units subcutaneously. - JARDIANCE 10 mg tablet Take 10 mg by mouth. - PROZAC 40 mg capsule Take 40 mg by mouth. - glipiZIDE (GLUCOTROL) 10 mg tablet Take 20 mg by mouth. - atorvastatin (LIPITOR) 40 mg tablet Take 40 mg by mouth. - metoclopramide HCl (GIMOTI) 15 mg/spray nasal spray Use 1 [place] in the nose four times daily. Problem List As Of Date: 12/03/2024 (None) Encounter Status:Closed by MARQUES GRIJALVA on 12/03/24 Normal [facility] ACETYLCHOLINE REC BINDING AB on 12-02-2024 ACETYLCHOLINE BINDING, QUAL Negative Normal Negative [facility] Comment on above: Order Comment: Cynthia membreno Type: BLOOD SPECIMEN Ordering Facility: [facility] Address: [address] [place] [address] Result Comment: Anti -acetylcholine receptor binding antibody test is used as an aid in diagnosis of myasthenia gravis. A negative result cannot exclude myasthenia gravis. Clinical correlation is required. Performed By: #### A CHRAB #### [facility] CLIA [id number] [address] [place] [address] [place] Acetylcholine receptor binding Ab (S) [Moles/Vol] <0.02 Normal <0.21 [facility] Comment on above: Order Comment: Cynthia membreno Type: BLOOD SPECIMEN Ordering Facility: [facility] Address: [address] [place] [address] Performed By: #### A CHRAB #### [facility] CLIA [id number] [address] [place] [address] [place] AMINO ACIDS, PLASMA W/ CONSU LTATIONon 12-02-2024 Alanine [Moles/Vol] 384 umol/L Normal 177-583 [facility] Comment on above: Order Comment: Cynthia membreno Type: BLOOD SPECIMEN Ordering Facility: [facility] Address: [address] [place] [address] Performed By: #### 2 458-8, 2465-3, 8909 #### [facility] CLIA [id number] [address] [place] [address] [place] Alloisoleucine [Moles/Vol] <2 Normal 0-2 [facility] Comment on above: Order Comment: Speci men Type: BLOOD SPECIMEN Ordering Facility: [facility] Address: [address] [place] [address] Performed By: #### 2 458-8, 2465-3, 9 #### [facility] CLIA [id number] [address] [place] [address] [place] Alpha aminoadipate [Moles/Vol] <2 Normal 0-6 [facility] Comment on above: Order Comment: Speci men Type: BLOOD SPECIMEN Ordering Facility: [facility] Address: [address] [place] [address] Performed By: #### 2 458-8, 2465-3, 9 #### [facility] CLIA [id number] [address] [place] [address] [place] AMINO ACID CONSULTATION, PLASMA Normal [facility] Comment on above: Order Comment: Speci men Type: BLOOD SPECIMEN Ordering Facility: [facility] Address: [address] [place] [address] Result Comment: This plasma amino acid analysis shows slightly low levels of several amino acids but is not diagnostic of a specific disorder. Reference intervals from William E, Jazmine MG, Hayes BJ, and Eusebia DK: Biochemical Genetics: A Laboratory Manual, Copyright 1989 by [employer] Reference intervals not established for some amino acids. This test was developed and its performance characteristics determined by the [facility] Department of Pathology and Laboratory Medicine. It has not been cleared or approved by the FDA. The [facility] Department of Pathology and Laboratory Medicine is regulated under CLIA as qualified to perform high-complexity testing. This test is used for clinical purposes. It should not be regarded as investigational or for research. Performed By: #### 2 458-8, 246-3, 2472-05 #### [facility] CLIA [id number] [address] [place] [address] [place] AMINO ACIDS REVIEW, PLASMA Reviewed by Corky Minaya MD, Ph.D ([id number]) [facility] Comment on above: Order Comment: Speci men Type: BLOOD SPECIMEN Ordering Facility: [facility] Address: [address] [place] [address] Performed By: #### 2 458-8, 3, 2472-05 #### [facility] CLIA [id number] [address] [place] [address] [place] Arginine [Moles/Vol] 40 umol/L Normal 15-128 [facility] Comment on above: Order Comment: Speci men Type: BLOOD SPECIMEN Ordering Facility: [facility] Address: [address] [place] [address] Performed By: #### 2 458-8, 3, 2472-05 #### [facility] CLIA [id number] [address] [place] [address] [place] Asparagine [Moles/Vol] 29 umol/L Low 35-74 [facility] Comment on above: Order Comment: Speci men Type: BLOOD SPECIMEN Ordering Facility: [facility] Address: [address] [place] [address] Performed By: #### 2 458-8, 3, 2472-05 #### [facility] CLIA [id number] [address] [place], [place] [address] [place] Aspartate [Moles/Vol] 4 umol/L Normal 1-25 [facility] Comment on above: Order Comment: Speci men Type: BLOOD SPECIMEN Ordering Facility: [facility] Address: [address] [place] [address] Performed By: #### 2 458-8, 2464-3, 2472-05 #### [facility] CLIA [id number] [address] [place], [place] [address] [place] Citrulline [Moles/Vol] 27 umol/L Normal 12-55 [facility] Comment on above: Order Comment: Speci men Type: BLOOD SPECIMEN Ordering Facility: [facility] Address: [address] [place] [address] Performed By: #### 2 458-8, 2465-3, 9 #### [facility] CLIA [id number] [address] [place], [place] [address] [place] Cystine [Moles/Vol] 47 umol/L Normal 5-82 [facility] Comment on above: Order Comment: Speci men Type: BLOOD SPECIMEN Ordering Facility: [facility] Address: [address] [place] [address] Performed By: #### 2 458-8, 2464-3, 9 #### [facility] CLIA [id number] [address] [place] [address] [place] Glutamate [Moles/Vol] 123 umol/L Normal 10-131 [facility] Comment on above: Order Comment: Speci men Type: BLOOD SPECIMEN Ordering Facility: [facility] Address: [address] [place] [address] Performed By: #### 2 458-8, 246-3, 9 #### [facility] CLIA [id number] [address] [place], [place] [address] [place] Glutamine [Moles/Vol] 515 umol/L Normal 205-756 [facility] Comment on above: Order Comment: Speci men Type: BLOOD SPECIMEN Ordering Facility: [facility] Address: [address] [place] [address] Performed By: #### 2 458-8, 246-3, 9 #### [facility] CLIA [id number] [address] [place], [place] [address] [place] Glycine [Moles/Vol] 195 umol/L Normal 151-490 [facility] Comment on above: Order Comment: Speci men Type: BLOOD SPECIMEN Ordering Facility: [facility] Address: [address] [place] [address] Performed By: #### 2 458-8, 2465-3, 9 #### [facility] CLIA [id number] [address] [place] [address] [place] Histidine [Moles/Vol] 53 umol/L Low 72-124 [facility] Comment on above: Order Comment: Speci men Type: BLOOD SPECIMEN Ordering Facility: [facility] Address: [address] [place] [address] Performed By: #### 2 458-8, 246-3, 2472-05 #### [facility] CLIA [id number] [address] [place] [address] [place] Hydroxylysine [Moles/Vol] <2 High <=0 [facility] Comment on above: Order Comment: Speci men Type: BLOOD SPECIMEN Ordering Facility: [facility] Address: [address] [place] [address] Performed By: #### 2 458-8, 3, 2472-05 #### [facility] CLIA [id number] [address] [place] [address] [place] Hydroxyproline [Moles/Vol] <5 Normal 0-53 [facility] Comment on above: Order Comment: Speci men Type: BLOOD SPECIMEN Ordering Facility: [facility] Address: [address] [place], [place] [address] Performed By: #### 2 458-8, 246-3, 2472-05 #### [facility] CLIA [id number] [address] [place], [place] [address] [place] Isoleucine [Moles/Vol] 59 umol/L Normal 30-108 [facility] Comment on above: Order Comment: Speci men Type: BLOOD SPECIMEN Ordering Facility: [facility] Address: [address] [place] [address] Performed By: #### 2 458-8, 246-3, 2472-05 #### [facility] CLIA [id number] [address] [place] [address] [place] Leucine [Moles/Vol] 107 umol/L Normal 72-201 [facility] Comment on above: Order Comment: Speci men Type: BLOOD SPECIMEN Ordering Facility: [facility] Address: [address] [place] [address] Performed By: #### 2 458-8, 246-3, 9 #### [facility] CLIA [id number] [address] [place] [address] [place] Lysine [Moles/Vol] 164 umol/L Normal 116-296 [facility] Comment on above: Order Comment: Speci men Type: BLOOD SPECIMEN Ordering Facility: [facility] Address: [address] [place] [address] Performed By: #### 2 458-8, 2463, 9 #### [facility] CLIA [id number] [address] [place] [address] [place] Methionine [Moles/Vol] 16 umol/L Normal 10-42 [facility] Comment on above: Order Comment: Speci men Type: BLOOD SPECIMEN Ordering Facility: [facility] Address: [address] [place] [address] Performed By: #### 2 458-8, 246-3, 9 #### [facility] CLIA [id number] [address] [place] [address] [place] Ornithine [Moles/Vol] 62 umol/L Normal 48-195 [facility] Comment on above: Order Comment: Speci men Type: BLOOD SPECIMEN Ordering Facility: [facility] Address: [address] [place] [address] Performed By: #### 2 458-8, 246-3, 2472-05 #### [facility] CLIA [id number] [address] [place] [address] [place] Phenylalanine [Moles/Vol] 45 umol/L Normal 35-85 [facility] Comment on above: Order Comment: Speci men Type: BLOOD SPECIMEN Ordering Facility: [facility] Address: [address] [place] [address] Performed By: #### 2 458-8, 3, 2472-05 #### [facility] CLIA [id number] [address] [place] [address] [place] Proline [Moles/Vol] 271 umol/L Normal 97-329 [facility] Comment on above: Order Comment: Speci men Type: BLOOD SPECIMEN Ordering Facility: [facility] Address: [address] [place] [address] Performed By: #### 2 458-8, 2464-11, 2472-05 #### [facility] CLIA [id number] [address] [place] [address] [place] Sarcosine [Moles/Vol] <2 High <=0 [facility] Comment on above: Order Comment: Speci men Type: BLOOD SPECIMEN Ordering Facility: [facility] Address: [address] [place] [address] Performed By: #### 2 458-8, 3, 2472-05 #### [facility] CLIA [id number] [address] [place], [place] [address] [place] Serine [Moles/Vol] 75 umol/L Normal 58-181 [facility] Comment on above: Order Comment: Speci men Type: BLOOD SPECIMEN Ordering Facility: [facility] Address: [address] [place] [address] Performed By: #### 2 458-8, 246-3, 2472-05 #### [facility] CLIA [id number] [address] [place] [address] [place] Taurine [Moles/Vol] 45 umol/L Low 54-210 [facility] Comment on above: Order Comment: Speci men Type: BLOOD SPECIMEN Ordering Facility: [facility] Address: [address] [place] [address] Performed By: #### 2 458-8, 2465-3, 9 #### [facility] CLIA [id number] [address] [place] [address] [place] Threonine [Moles/Vol] 79 umol/L Normal 60-225 [facility] Comment on above: Order Comment: Speci men Type: BLOOD SPECIMEN Ordering Facility: [facility] Address: [address] [place] [address] Performed By: #### 2 458-8, 2465-3, 9 #### [facility] CLIA [id number] [address] [place] [address] [place] Tyrosine [Moles/Vol] 56 umol/L Normal 34-112 [facility] Comment on above: Order Comment: Speci men Type: BLOOD SPECIMEN Ordering Facility: [facility] Address: [address] [place] [address] Performed By: #### 2 458-8, 2465-3, 9 #### [facility] CLIA [id number] [address] [place] [address] [place] Valine [Moles/Vol] 227 umol/L Normal 119-336 [facility] Comment on above: Order Comment: Speci men Type: BLOOD SPECIMEN Ordering Facility: [facility] Address: [address] [place] [address] Performed By: #### 2 458-8, 2465-3, 9 #### [facility] CLIA [id number] [address] [place] [address] [place] C-REACTIVE PROTEINon 03-12-2 025 CRP [Mass/Vol] 0.9 mg/dL High NINF - 0.9 mg/dL [facility] CARNITINE FREE AND TOTAL, PL ASMAon 12-02-2024 AC/FC RATIO 0.3 Normal 0.1-0.8 [facility] Comment on above: Order Comment: Speci men Type: BLOOD SPECIMEN Ordering Facility: [facility] Address: [address] [place] [address] Performed By: #### C ARNFT #### [facility] CLIA [id number] [address] [place] [address] ACYLCARNITINE (AC) 13 nmol/mL Normal 5-30 [facility] Comment on above: Order Comment: Speci men Type: BLOOD SPECIMEN Ordering Facility: [facility] Address: [address] [place] [address] Performed By: #### C RENNYFT #### [facility] CLIA [id number] [address] [place] [address] CARNITINE FREE (FC) 43 nmol/mL Normal 25-54 [facility] Comment on above: Order Comment: Speci men Type: BLOOD SPECIMEN Ordering Facility: [facility] Address: [address] [place] [address] Performed By: #### C ARNFT #### [facility] CLIA [id number] [address] [place] [address] CARNITINE TOTAL 56 nmol/mL Normal 34-78 [facility] Comment on above: Order Comment: Speci men Type: BLOOD SPECIMEN Ordering Facility: [facility] Address: [address] [place] [address] Performed By: #### C ARNFT #### [facility] CLIA [id number] [address] [place] [address] INTERPRETATION SEE NOTE Normal [facility] Comment on above: Order Comment: Speci men Type: BLOOD SPECIMEN Ordering Facility: [facility] Address: [address] [place] [address] Result Comment: RESU LT: In this sample, the carnitine profile was normal. ADDITIONAL INFORMATION This test was developed and its performance characteristics determined by [facility] in a manner consistent with CLIA requirements. This test has not been cleared or approved by the U.S. Food and Drug Administration. Test Performed by: [facility] [address] [place] [address] Safemaker: Roel Bellamy Ph.D.; CLIA# [id number] Performed By: #### C SASHA #### [facility] CLIA [id number] [address] [place] [address] CK SerPl-cCncon 12-02-2024 CK [Catalytic activity/Vol] 59 U/L Normal 42-196 [facility] Comment on above: Order Comment: Speci men Type: BLOOD SPECIMEN Ordering Facility: [facility] Address: [address] [place], [place] [address] Performed By: #### C YTDANIEL #### [facility] CLIA [id number] [address] [place] [address] CK [Catalytic activity/Vol]o n 12-02-2024 Interpretation and review of laboratory results Normal [facility] CNOVon 12-02-2024 CNOV Office Visit (GASTSP ) FLORIPORFIRIO HERNANDEZGAEL R ([id number]) 1995 F Date Time Provider Department 12/02/24 2:00 PM YAJAIRA LAKCEY GASTSP During your visit today, we recorded the following information about you: Pulse Blood pressure Weight Height 87/minute 128/87 109 kg 1.727 m Yajaira Lackey DO 12/02/2024 2:02 PM Signed GASTROPARESIS CONSULT Patient is referred by Dr. Aly Beverly for an opinion regarding GP and my final recommendations will be communicated back to the requesting physician by way of a copy of today's office notes. PRESENTING COMPLAINT AND HISTORY Gael is a 29 yr old female w/hx of pancreatitis, PE, DM2, endometriosis, HTN, factor V Leiden, GERD, anxiety/depression, PTSD, hiatal hernia, steatosis of liver, bilateral oophorectomy, C section, cholecystectomy and hysterectomy that had an abnormal gastric emptying study 04/2024 showing 37% retention at 4 hours. Gastroparesis symptoms started spring 2023 with early satiety, lack of appetite, increased nausea and dizziness. Diagnosed with GES in April. DM2, diagnosed in 2015, denies neuropathy, Hgb A1c 8.0 (09/2024). Was on Trulicity in 2023; has been off for around 3-4 months per patient. She has been to the ER 100 times in 2023. Diet: grazes through the day as tolerated. Constipation with average bm once a day on daily Miralax, Dulcolax, and stool softener. Without medication would only move bowels 3 x per week. Constipation started in April 2024 - prior to that she reports no issues with constipation. Reglan is helping with symptoms. Takes prn Compazine and Zofran, as well as Phenergan suppositories for nausea. States she doesn't vomit that often. C/o early satiety and stomach fullness with moderate appetite loss. Drinks one Ensure or Section 101t Brand Diabetes nutrition drink per day. Intermittent marijuana use. Has struggled with some anorexia and binge/purging her freshman yr in highschool. States eating disorder behaviors resolved on their own - denies professional treatment. Incomplete evacuation and dyssynergic defecation. Patient is interested in learning more about EMPTIES Trial: Yes Patient is a candidate for EMPTIES Trial: Yes Gastrointestinal Symptoms Reflux/heartburn: Yes Protonix Abdominal pain/discomfort: Yes continuous abdominal that varies in severity, generally upper abdominal pain. Eating worsens pain. Weight loss: Yes Lost 10 lbs since April. Weighs around 240 lbs per patient. Do you have less than 3 bowel movements per week? No Diarrhea: No Constipation: Yes average bowel movement is typically once a day; small amount, doesn't completely evacuate. Takes Dulcolax, Miralax and OTC stool softener - takes daily. Without medication would move bowel 3 x per week. Constipation started in April 2024 - prior was having regular bowel movements without medication Malnutrition: No Gastroparesis Cardinal Symptom Index (CGSI) 1. Nausea: 4 2. Retchin 3. Vomitin 4. Stomach fullness: 4 5. Not able to finish a normal-sized meal: 5 6. Feeling excessively full after meals: 4 7. Loss of appetite: 3 8. Bloating (feeling like you need to loosen your clothes): 2 9. Stomach or belly visibly larger: 2 CGSI Score: 2.89 Scale (0-none; 1-very mild; 2-mild; 3-moderate; 4-severe; 5-very severe) MEDICATION HISTORY Promotility Drugs - Reglan (Metoclopramide): Yes unsure on how often she is taking; helps symptoms - Gimoti (Metoclopramide nasal): No - Motilium (Domperidone): No - Erythromycin (E-mycin): No - Propulsid (Cisapride)_: No Other - Tricyclic Antidepressants (nortriptyline - Pamelor; amitriptyline - Elavil): No - Buspirone (Buspar): No - Mirtazapin (Remeron): No Anti-Nausea Medications - Compazine (Prochlorperazine): Yes just ran out of RX - helps nausea - Phenergan (Promethazine): Yes prn suppositories - Benadryl (Diphenhydramine): No - Zofran (Ondansetron): Yes prn - Scopace (Scopolamine Patch): used in the past - worked well - Granisetron (Kytril or Sancuso): No - Tigan (Trimethobenzamide)_: No GLP-1 Receptor Agonists (for Diabetes or Weight loss): Yes Trulicity no longer taking Constipation Medications - Bulking Agents (Metamucil,Citrucel, Fibercon): Yes - Osmotic Laxatives (MOM, Polyethylene glycol (PEG), lactulose, sorbitol,MiraLax, Chronulal, Cephulac,Xylitol): Yes Miralax daily - Stimulant Laxatives (Ex-Lax, Senokot,Correctol, Dulcolax): Yes Dulcolax daily - Stool Softeners (Colace): Yes daily - Chloride Channel Activator (Amitiza): no - Linzess: insurance would not cover - Trulance: no - Motegrity: Yes insurance would not cover - Ibsrela: no Pain Medications - Does the patient see a apprentice painter brush for chronic pain?No - Is the patient taking narcotic pain medication for chronic abdominal pain? No - Narcotic Medications: (Tramadol, Fentanyl, c (more content not included)... Normal [facility] CNOV Office Visit (GASTSP ) GAEL RUBY ([id number]) 1995 F Date Time Provider Department 12/02/24 12:45 PM ELECTROGASTROGRAM [facility] During your visit today, we recorded the following information about you: Krupa Orosco LPN 12/02/2024 1:26 PM Signed ELECTROGASTROGRAPY W/ TEST Operation / Procedure performed 350 cc water intake Krpua Orosco LPN Referring Provider: YAJAIRA LACKEY [[id number]] Allergies As of Date: 12/02/2024 Noted Allergy Reaction KETOROLAC 01/23/2013 9 - Itching 12 - Shortness of Breath MEPERIDINE 02/26/2016 9 - Itching 12 - Shortness of Breath Comments: UNKNOWN REACTION EGG 12/02/2024 8 - GI Upset KIWI (ACTINIDIA CHINENSIS) 06/03/2023 9 - Itching LATEX 02/27/2016 9 - Itching Comments: Pruritis AMOXICILLIN 02/26/2016 2 - Rash Comments: hives PENICILLINS 02/27/2016 2 - Rash Comments: hives PHENAZOPYRIDINE 02/27/2016 1 - Mental Status Change 14 - Other: See Comments Date Reviewed: 12/02/2024 Reviewed by: Abel Garza MA - Fully Assessed Reason for Visit: electrogastrogram [Other] Cmt: 350 cc water intake Primary Visit Diagnosis:Gastroparesi s [K31.84] Prescriptions as of 12/02/2024 - prochlorperazine (COMPAZINE) 5 mg tablet Take 5 mg by mouth. - polyethylene glycol 3350 (MIRALAX ORAL) Take 17 g by mouth. - pantoprazole DR (PROTONIX) 40 mg tablet 40 mg. - ondansetron orally disintegrating (ZOFRAN ODT) 4 mg disintegrating tablet 4 mg. - metoclopramide HCl (REGLAN) 10 mg tablet Take 10 mg by mouth. - LANTUS SOLOSTAR U-100 INSULIN 100 unit/mL (3 mL) Inject 25 Units subcutaneously. - JARDIANCE 10 mg tablet Take 10 mg by mouth. - PROZAC 40 mg capsule Take 40 mg by mouth. - glipiZIDE (GLUCOTROL) 10 mg tablet Take 20 mg by mouth. - atorvastatin (LIPITOR) 40 mg tablet Take 40 mg by mouth. Problem List As Of Date: 12/02/2024 (None) Encounter Status:Closed by KRUPA OROSCO on 12/02/24 [facility] GAEL RUBY ([id number]) 1995 F Date Time Provider Department 12/02/24 YAJAIRA LACKEY [facility] During your visit today, we recorded the following information about you: Karla Mcnally RN 12/02/2024 3:46 PM Signed PA for Gimoti initiated electronically through [employer]. Awaiting response [place] Medicaid ID# [id number] Rx BIN [id number] Rx PCN OHRXPROD Donna Saini RN 01/22/2025 11:15 AM Signed Received new prior authorization request for Gimoti. Called [employer], per their automated sysmtem: Metoclopramide HCL was approved: APPROVED 12/02/2024-01/26/2025. Allergies As of Date: 12/02/2024 Noted Allergy Reaction KETOROLAC 01/23/2013 9 - Itching 12 - Shortness of Breath MEPERIDINE 02/26/2016 9 - Itching 12 - Shortness of Breath Comments: UNKNOWN REACTION EGG 12/02/2024 8 - GI Upset KIWI (ACTINIDIA CHINENSIS) 06/03/2023 9 - Itching LATEX 02/27/2016 9 - Itching Comments: Pruritis AMOXICILLIN 02/26/2016 2 - Rash Comments: hives PENICILLINS 02/27/2016 2 - Rash Comments: hives PHENAZOPYRIDINE 02/27/2016 1 - Mental Status Change 14 - Other: See Comments Date Reviewed: 12/02/2024 Reviewed by: Yajaira Lackey DO - Fully Assessed Reason for Visit: Medication Preauthorization [914] Cmt: PA for Gimoti Prescriptions as of 01/22/2025 - pantoprazole DR (PROTONIX) 40 mg tablet Take 1 tablet by mouth two times a day. Start taking medication after procedure for 4 weeks. - prochlorperazine (COMPAZINE) 5 mg tablet Take 5 mg by mouth. - polyethylene glycol 3350 (MIRALAX ORAL) Take 17 g by mouth. - pantoprazole DR (PROTONIX) 40 mg tablet 40 mg. - ondansetron orally disintegrating (ZOFRAN ODT) 4 mg disintegrating tablet 4 mg. - LANTUS SOLOSTAR U-100 INSULIN 100 unit/mL (3 mL) Inject 25 Units subcutaneously daily at bedtime. Taking 30 units at night - JARDIANCE 10 mg tablet Take 10 mg by mouth. - PROZAC 40 mg capsule Take 40 mg by mouth. - glipiZIDE (GLUCOTROL) 10 mg tablet Take 20 mg by mouth. - atorvastatin (LIPITOR) 40 mg tablet Take 40 mg by mouth. - metoclopramide HCl (GIMOTI) 15 mg/spray nasal spray Use 1 [place] in the nose four times daily. Medication notes this encounter GIMOTI 15 MG/SPRAY NASAL SPRAY WITH PUMP >> Karla Mcnally RN 12/02/2024 3:46 PM >> KARLA MCNALLY Dec 02, 2024 3:46 PM PA for Gimoti initiated electronically through [employer]. Awaiting response [place] Medicaid ID# [id number] Rx BIN [id number] Rx PCN OHRXPROD Problem List As Of Date: 12/02/2024 (None) Encounter Status:Closed by KARLA MCNALLY on 12/02/24 Normal [facility] CREATINE KINASE/CKon 025 CK [Catalytic activity/Vol] 59 U/L 42 - 196 U/L [facility] CRP SerPl-mCncon 12-02-2024 CRP [Mass/Vol] 0.9 mg/dL High <0.9 [facility] Comment on above: Order Comment: Speci men Type: BLOOD SPECIMEN Ordering Facility[facility] Address: [address] [place] [address] Performed By: #### C YTOKP #### [facility] CLIA [id number] [address] [place] [address] CRP [Mass/Vol]on 12-02-2024 Interpretation and review of laboratory results Abnormal [facility] CYTOKINE PANEL 13, SERUMon 0 12-02-2024 INTERFERON GAMMA <4.2 Normal <=4.2 [facility] Comment on above: Order Comment: Speci men Type: BLOOD SPECIMEN Ordering Facility: [facility] Address: [address] [place] [address] Performed By: #### C YTOKP #### [facility] CLIA [id number] [address] [place] [address] INTERLEUKIN 1 BETA <6.5 Normal <=6.7 [facility] Comment on above: Order Comment: Speci men Type: BLOOD SPECIMEN Ordering Facility: [facility] Address: [address] [place] [address] Performed By: #### C YTOKP #### [facility] CLIA [id number] [address] [place] [address] INTERLEUKIN 10 <2.8 Normal <=2.8 [facility] Comment on above: Order Comment: Speci men Type: BLOOD SPECIMEN Ordering Facility: [facility] Address: [address] [place] [address] Performed By: #### C YTOKP #### [facility] CLIA [id number] [address] [place] [address] INTERLEUKIN 12 <1.9 Normal <=1.9 [facility] Comment on above: Order Comment: Speci men Type: BLOOD SPECIMEN Ordering Facility: [facility] Address: [address] [place] [address] Performed By: #### C YTOKP #### [facility] CLIA [id number] [address] [place] [address] INTERLEUKIN 13 <1.7 Normal <=2.3 [facility] Comment on above: Order Comment: Speci men Type: BLOOD SPECIMEN Ordering Facility: [facility] Address: [address] [place] [address] Performed By: #### C YTOKP #### [facility] CLIA [id number] [address] [place] [address] INTERLEUKIN 17 <1.4 Normal <=1.4 [facility] Comment on above: Order Comment: Speci men Type: BLOOD SPECIMEN Ordering Facility: [facility] Address: [address] [place] [address] Performed By: #### C YTOKP #### [facility] CLIA [id number] [address] [place] [address] INTERLEUKIN 2 <2.1 Normal <=2.1 [facility] Comment on above: Order Comment: Speci men Type: BLOOD SPECIMEN Ordering Facility: [facility] Address: [address] [place] [address] Performed By: #### C YTOKP #### [facility] CLIA [id number] [address] [place] [address] INTERLEUKIN 4 (INT4) <2.2 Normal <=2.2 [facility] Comment on above: Order Comment: Speci men Type: BLOOD SPECIMEN Ordering Facility: [facility] Address: [address] [place] [address] Performed By: #### C YTOKP #### [facility] CLIA [id number] [address] [place] [address] INTERLEUKIN 5 <2.1 Normal <=2.1 [facility] Comment on above: Order Comment: Speci men Type: BLOOD SPECIMEN Ordering Facility: [facility] Address: [address] [place] [address] Performed By: #### C YTOKP #### [facility] CLIA [id number] [address] [place] [address] INTERLEUKIN 6 <2.0 Normal <=2.0 [facility] Comment on above: Order Comment: Speci men Type: BLOOD SPECIMEN Ordering Facility: [facility] Address: [address] [place] [address] Performed By: #### C YTOKP #### [facility] [id number] [address] [place] [address] INTERLEUKIN 8 <3.0 Normal <=3.0 [facility] Comment on above: Order Comment: Speci men Type: BLOOD SPECIMEN Ordering Facility: [facility] Address: [address] [place] [address] Performed By: #### C YTOKP #### [facility] [id number] [address] [place] [address] INTERLEUKIN-2 RECEPTOR 793.9 pg/mL Normal 175.3-858.2 [facility] Comment on above: Order Comment: Speci men Type: BLOOD SPECIMEN Ordering Facility: [facility] Address: [address] [place] [address] Performed By: #### C YTOKP #### [facility] [id number] [address] [place] [address] TUMOR NECROSIS FACTOR - ALPHA <1.7 Normal <=7.2 [facility] Comment on above: Order Comment: Speci men Type: BLOOD SPECIMEN Ordering Facility: [facility] Address: [address] [place] [address] Result Comment: INTE RPRETIVE INFORMATION: Cytokines Results are used to understand the pathophysiology of immune, infectious, or inflammatory disorders, or may be used for research purposes. This test was developed and its performance characteristics determined by [employer]. It has not been cleared or approved by the US Food and Drug Administration. This test was performed in a CLIA certified laboratory and is intended for clinical purposes. Performed By: [employer] [address] [place] [address] Air Hoist Operator: Roger Atkins MD, PhD CLIA Number: [id number] Performed By: #### C YTOKP #### [facility] CLIA [id number] [address] [place] [address] ESR Westergren method (Bld) [Velocity]on 12-02-2024 ESR (Bld) [Velocity] 15 mm/h Normal 0-20 [facility] Comment on above: Order Comment: Speci men Type: BLOOD SPECIMEN Ordering Facility: [facility] Address: [address] [place] [address] Performed By: #### 2 458-8, 2465-3, 2472-9 #### [facility] CLIA [id number] [address] [place] [address] [place] [address] [place] ESTROGEN FRACTION BLon 12-02 ESTRADIOL 8.2 pg/mL Normal [facility] Comment on above: Order Comment: Speci men Type: BLOOD SPECIMEN Ordering Facility: [facility] Address: [address] [place] [address] Result Comment: REFE RENCE INTERVAL: Estradiol by Reconciliation Specialist For a complete set of all established reference intervals, refer to [employer]/Tests/Pub/[id number]. This test was developed and its performance characteristics determined by [employer]. It has not been cleared or approved by the US Food and Drug Administration. This test was performed in a CLIA certified laboratory and is intended for clinical purposes. Performed By: #### C YTOKP #### [facility] CLIA [id number] [address] [place] [address] ESTROGENS TOTAL 32.4 pg/mL Normal [facility] Comment on above: Order Comment: Speci men Type: BLOOD SPECIMEN Ordering Facility: [facility] Address: [address] [place] [address] Result Comment: Refe rence interval of estrogens (pg/mL) Estrone Estradiol Total Estrogens Early follicular <150.0 30.0-100.0 30.0-250.0 Late follicular 100.0-250.0 100.0-400.0 200.0-650.0 Luteal <200.0 50.0-150.0 50.0-350.0 Post-menopausal 3.0-32.0 2.0-21.0 5.0-52.0 REFERENCE INTERVAL: Estrogens Total Calculation For a complete set of all established reference intervals, refer to [employer]/Tests/Pub/[id number]. Performed By: [facility] [address] [place] [address] Air Hoist Operator: Roger Atkins MD, PhD [facility] Number: [id number] Performed By: #### C YTOKP #### [facility] CLIA [id number] [address] [place] [address] ESTRONE 24.2 pg/mL Normal [facility] Comment on above: Order Comment: Speci men Type: BLOOD SPECIMEN Ordering Facility: [facility] Address: [address] [place] [address] Result Comment: INTE RPRETIVE INFORMATION: Estrone by Reconciliation Specialist For a complete set of all established reference intervals, refer to [employer]/Tests/Pub/[id number]. This test was developed and its performance characteristics determined by [employer]. It has not been cleared or approved by the US Food and Drug Administration. This test was performed in a CLIA certified laboratory and is intended for clinical purposes. Performed By: #### Macy YTOKMicki #### [facility] CLIA [id number] [address] [place] [address] GAD65 Ab Ser-aCncon 12-03-19 Glutamate decarboxylase 65 Ab Qn (S) <5.0 Normal <=5.0 [facility] Comment on above: Order Comment: Speci men Type: BLOOD SPECIMEN Ordering Facility: [facility] Address: [address] [place] [address] Result Comment: Anti -glutamic acid decarboxylase antibody (GAD65) test usually in conjunction with another test such as IA-2 antibody is used as an aid in establishing the autoimmune nature of previously-diagnosed type I diabetes mellitus or in predicting of progression to type I diabetes mellitus in patients with certain autoimmune diseases including autoimmune gastritis among others. It is also used as an aid in diagnosis of stiff person syndrome and certain autoimmune nervous system diseases. Clinical correlation is required. Performed By: #### C YTOKP #### [facility] [employer] CLIA [id number] [address] [place] [address] Glutamate decarboxylase 65 A b Qn (S)on 12-02-2024 GLUTAMIC ACID DECARBOXYLAS AB QUALITATIVE Negative Normal Negative [facility] Comment on above: Order Comment: Cynthia membreno Type: BLOOD SPECIMEN Ordering Facility: [facility] Address: [address] [place] [address] Performed By: #### C YTOKP #### [facility] CLIA [id number] [address] [place] [address] HbA1c (Bld)on 12-02-2024 Average glucose Estimated from glycated hemoglobin (Bld) [Mass/Vol] 180 mg/dL Normal [facility] Comment on above: Order Comment: Cynthia membreno Type: BLOOD SPECIMEN Ordering Facility: [facility] Address: [address] [place] [address] Result Comment: eAG: (Estimated average glucose) is a calculated value from HgbA1c and is c s s representative of the average blood glucose level in the last 2-3 month period. Performed By: #### 5 5454-3 #### [facility] CLIA [id number] [address] [place] [address] [place] HbA1c (Bld) [Mass fraction] 7.9 % High 4.3-5.6 [facility] Comment on above: Order Comment: Cynthia membreno Type: BLOOD SPECIMEN Ordering Facility: [facility] Address: [address] [place] [address] Result Comment: Amer [place] Diabetes Association guidelines indicate that patients with HgbA1c in the range 5.7-6.4% are at increased risk for development of diabetes, and intervention by lifestyle modification may be beneficial. HgbA1c greater or equal to 6.5% is considered diagnostic of diabetes. Performed By: #### 5 5454-3 #### [facility] CLIA [id number] [address] [place] [address] [place] IgA SerPl-mCncon 12-02-2024 IgA [Mass/Vol] 149 mg/dL Normal 70-400 [facility] Comment on above: Order Comment: Cynthia membreno Type: BLOOD SPECIMEN Ordering Facility: [facility] Address: [address] [place] [address] Performed By: #### 2 458-8, 2465-3, 2472-9 #### [facility] CLIA [id number] [address] [place], [place] [address] [place] IgG SerPl-mCncon 12-02-2024 IgG [Mass/Vol] 1096 mg/dL Normal 700-1600 [facility] Comment on above: Order Comment: Speci men Type: BLOOD SPECIMEN Ordering Facility: [facility] Address: [address] [place] [address] Performed By: #### 2 458-8, 2465-3, 2472-9 #### [facility] CLIA [id number] [address] [place] [address] [place] IgM SerPl-mCncon 12-02-2024 IgM [Mass/Vol] 76 mg/dL Normal 40-230 [facility] Comment on above: Order Comment: Speci men Type: BLOOD SPECIMEN Ordering Facility[facility] Address: [address] [place] [address] Performed By: #### 2 458-8, 2465-3, 2472-9 #### [facility] [place] [id number] [address] [place] [address] [place] LDH SerPl-cCncon 12-02-2024 LDH [Catalytic activity/Vol] 168 U/L Normal 135-214 [facility] Comment on above: Order Comment: Speci men Type: BLOOD SPECIMEN Ordering Facility: [facility] Address: [address] [place] [address] Performed By: #### 2 532-0, 3024-7 #### [facility] [place] [id number] [address] [place], [place] [id number] [place] No Panel Informationon 12-02 [facility] ORGANIC ACIDS UR, QUANT W/CO NSULTon 12-02-2024 2-Hydroxyglutarate/Cre atinine (U) [Molar ratio] 6.8 umol/mmolCr Normal 0.6-17.7 [facility] Comment on above: Order Comment: Speci men Type: URINE SPECIMEN Ordering Facility: [facility] Address: [address] [place] [address] Performed By: #### L [id number] #### [facility] [place] [id number] [address] [place] [address] [place] 2-Hydroxyisovalerate/C reatinine (U) [Molar ratio] <0.1 Normal 0.0-0.1 [facility] Comment on above: Order Comment: Speci men Type: URINE SPECIMEN Ordering Facility: [facility] Address: [address] [place] [address] Performed By: #### L [id number] #### [facility] [place] [id number] [address] [place] [address] [place] 5-Brphnl-8-hydroxybuty rate (C5-OH)/Creatinine (U) [Molar ratio] <0.6 Normal 0.0-1.3 [facility] Comment on above: Order Comment: Speci men Type: URINE SPECIMEN Ordering Facility: [facility] Address: [address] [place] [address] Performed By: #### L [id number] #### [facility] [place] [id number] [address] [place] [address] [place] 2-Methylbutyrylglycine /Creatinine (U) [Molar ratio] <0.1 Normal 0.0-0.4 [facility] Comment on above: Order Comment: Speci men Type: URINE SPECIMEN Ordering Facility: [facility] Address: [address] [place] [address] Performed By: #### L [id number] #### [facility] [place] [id number] [address] [place] [address] [place] 2-Methylcitrate/Creati nine (U) [Molar ratio] <1.1 Normal 1.0-13.9 [facility] Comment on above: Order Comment: Speci men Type: URINE SPECIMEN Ordering Facility: [facility] Address: [address] [place] [address] Performed By: #### L [id number] #### [facility] CLIA [id number] [address] [place] [address] [place] 2-Oxoadipate/Creatinin e (U) [Molar ratio] <1.6 Normal 0.0-3.3 [facility] Comment on above: Order Comment: Speci men Type: URINE SPECIMEN Ordering Facility: [facility] Address: [address] [place] [address] Performed By: #### L [id number] #### [facility] CLIA [id number] [address] [place] [address] [place] 3-Hydroxyglutarate/Cre atinine (U) [Molar ratio] 0.0 umol/mmolCr Normal 0.0-0.7 [facility] Comment on above: Order Comment: Speci men Type: URINE SPECIMEN Ordering Facility: [facility] Address: [address] [place] [address] Performed By: #### L [id number] #### [facility] CLIA [id number] [address] [place] [address] [place] 3-Hydroxyisovalerate/C reatinine (U) [Molar ratio] 9.4 umol/mmolCr Normal 2.1-27.3 [facility] Comment on above: Order Comment: Speci men Type: URINE SPECIMEN Ordering Facility: [facility] Address: [address] [place] [address] Performed By: #### L [id number] #### [facility] CLIA [id number] [address] [place], [place] [address] [place] 3-Methylcrotonylglycin e/Creatinine (U) [Molar ratio] <0.3 Normal <0.3 [facility] Comment on above: Order Comment: Speci men Type: URINE SPECIMEN Ordering Facility: [facility] Address: [address] [place] [address] Performed By: #### L [id number] #### [facility] CLIA [id number] [address] [place] [address] [place] 3-Methylglutaconate/Cr eatinine (U) [Molar ratio] 1.9 umol/mmolCr Normal 0.0-2.0 [facility] Comment on above: Order Comment: Speci men Type: URINE SPECIMEN Ordering Facility: [facility] Address: [address] [place] [address] Performed By: #### L [id number] #### [facility] CLIA [id number] [address] [place] [address] [place] 3-Methylglutarate/Crea tinine (U) [Molar ratio] 0.7 umol/mmolCr High 0.0-0.6 [facility] Comment on above: Order Comment: Speci men Type: URINE SPECIMEN Ordering Facility: [facility] Address: [address] [place] [address] Performed By: #### L [id number] #### [facility] CLIA [id number] [address] [place] [address] [place] 4-Hydroxyphenylacetate /Creatinine (U) [Molar ratio] 21.7 umol/mmolCr Normal 5.7-147.5 [facility] Comment on above: Order Comment: Speci men Type: URINE SPECIMEN Ordering Facility: [facility] Address: [address] [place] [address] Performed By: #### L [id number] #### [facility] CLIA [id number] [address] [place] [address] [place] 4-Hydroxyphenyllactate /Creatinine (U) [Molar ratio] 8.3 umol/mmolCr Normal 1.3-23.0 [facility] Comment on above: Order Comment: Speci men Type: URINE SPECIMEN Ordering Facility: [facility] Address: [address] [place] [address] Performed By: #### L [id number] #### [facility] CLIA [id number] [address] [place] [address] [place] 4-Hydroxyphenylpyruvat e/Creatinine (U) [Molar ratio] 0.0 umol/mmolCr Normal <=0.0 [facility] Comment on above: Order Comment: Speci men Type: URINE SPECIMEN Ordering Facility: [facility] Address: [address] [place] [address] Performed By: #### L [id number] #### [facility] CLIA [id number] [address] [place] [address] [place] 5-Oxoproline/Creatinin e (U) [Molar ratio] 1.2 umol/mmolCr Normal 0.4-3.1 [facility] Comment on above: Order Comment: Speci men Type: URINE SPECIMEN Ordering Facility: [facility] Address: [address] [place] [address] Performed By: #### L [id number] #### [facility] CLIA [id number] [address] [place] [address] [place] Acetoacetate/Creatinin e (U) [Molar ratio] <0.9 High 0.0-0.5 [facility] Comment on above: Order Comment: Speci men Type: URINE SPECIMEN Ordering Facility: [facility] Address: [address] [place] [address] Performed By: #### L [id number] #### [facility] CLIA [id number] [address] [place] [address] [place] Aconitate/Creatinine (U) [Molar ratio] 19.8 umol/mmolCr Normal 8.5-109.6 [facility] Comment on above: Order Comment: Speci men Type: URINE SPECIMEN Ordering Facility: [facility] Address: [address] [place] [address] Performed By: #### L [id number] #### [facility] CLIA [id number] [address] [place] [address] [place] Adipate/Creatinine (U) [Molar ratio] <0.1 Low 0.3-9.2 [facility] Comment on above: Order Comment: Speci men Type: URINE SPECIMEN Ordering Facility: [facility] Address: [address] [place] [address] Performed By: #### L [id number] #### [facility] CLIA [id number] [address] [place] [address] [place] Alpha hydroxybutyrate/Creati nine (U) [Molar ratio] 5.0 umol/mmolCr High 0.0-2.7 [facility] Comment on above: Order Comment: Speci men Type: URINE SPECIMEN Ordering Facility: [facility] Address: [address] [place] [address] Performed By: #### L [id number] #### [facility] CLIA [id number] [address] [place] [address] [place] Alpha ketoglutarate/Creatini ne (U) [Molar ratio] 11.7 umol/mmolCr Normal 0.2-42.7 [facility] Comment on above: Order Comment: Speci men Type: URINE SPECIMEN Ordering Facility: [facility] Address: [address] [place] [address] Performed By: #### L [id number] #### [facility] CLIA [id number] [address] [place] [address] [place] Benzoate/Creatinine (U) [Molar ratio] <12.2 Normal 0.0-14.6 [facility] Comment on above: Order Comment: Speci men Type: URINE SPECIMEN Ordering Facility: [facility] Address: [address] [place] [address] Performed By: #### L [id number] #### [facility] CLIA [id number] [address] [place] [address] [place] Beta hydroxybutyrate/Creati nine (U) [Molar ratio] 6.8 umol/mmolCr High 0.1-2.6 [facility] Comment on above: Order Comment: Speci men Type: URINE SPECIMEN Ordering Facility: [facility] Address: [address] [place] [address] Performed By: #### L [id number] #### [facility] CLIA [id number] [address] [place] [address] [place] Butyrylglycine/Creatin ine (U) [Molar ratio] 0.0 umol/mmolCr Normal 0.0-0.7 [facility] Comment on above: Order Comment: Speci men Type: URINE SPECIMEN Ordering Facility: [facility] Address: [address] [place] [address] Performed By: #### L [id number] #### [facility] CLIA [id number] [address] [place] [address] [place] Creatinine (U) [Mass/Vol] 118.8 mg/dL Normal 42.2-237.9 [facility] Comment on above: Order Comment: Speci men Type: URINE SPECIMEN Ordering Facility: [facility] Address: [address] [place] [address] Performed By: #### L [id number] #### [facility] CLIA [id number] [address] [place] [address] [place] Ethylmalonate/Creatini ne (U) [Molar ratio] 2.8 umol/mmolCr Normal 0.5-6.2 [facility] Comment on above: Order Comment: Speci men Type: URINE SPECIMEN Ordering Facility: [facility] Address: [address] [place] [address] Performed By: #### L [id number] #### [facility] CLIA [id number] [address] [place] [address] [place] Fumarate/Creatinine (U) [Molar ratio] 5.6 umol/mmolCr High 0.3-2.6 [facility] Comment on above: Order Comment: Speci men Type: URINE SPECIMEN Ordering Facility: [facility] Address: [address] [place] [address] Performed By: #### L [id number] #### [facility] CLIA [id number] [address] [place] [address] [place] Glutarate/Creatinine (U) [Molar ratio] 0.3 umol/mmolCr Normal 0.0-1.4 [facility] Comment on above: Order Comment: Speci men Type: URINE SPECIMEN Ordering Facility: [facility] Address: [address] [place] [address] Performed By: #### L [id number] #### [facility] CLIA [id number] [address] [place] [address] [place] Hexanoylglycine/Creati nine (U) [Molar ratio] <0.1 Normal 0.0-0.1 [facility] Comment on above: Order Comment: Speci men Type: URINE SPECIMEN Ordering Facility: [facility] Address: [address] [place] [address] Performed By: #### L [id number] #### [facility] CLIA [id number] [address] [place] [address] [place] Isobutyrylglycine/Crea tinine (U) [Molar ratio] <0.1 Normal 0.0-1.2 [facility] Comment on above: Order Comment: Speci men Type: URINE SPECIMEN Ordering Facility: [facility] Address: [address] [place] [address] Performed By: #### L [id number] #### [facility] CLIA [id number] [address] [place] [address] [place] Isocitrate/Creatinine (U) [Molar ratio] 95.4 umol/mmolCr Normal 9.1-271.9 [facility] Comment on above: Order Comment: Speci men Type: URINE SPECIMEN Ordering Facility: [facility] Address: [address] [place] [address] Performed By: #### L [id number] #### [facility] CLIA [id number] [address] [place] [address] [place] Lactate/Creatinine (U) [Molar ratio] 75.1 umol/mmolCr High 2.9-47.2 [facility] Comment on above: Order Comment: Speci men Type: URINE SPECIMEN Ordering Facility: [facility] Address: [address] [place] [address] Performed By: #### L [id number] #### [facility] CLIA [id number] [address] [place] [address] [place] Malate/Creatinine (U) [Molar ratio] 2.0 umol/mmolCr High 0.0-1.1 [facility] Comment on above: Order Comment: Speci men Type: URINE SPECIMEN Ordering Facility: [facility] Address: [address] [place] [address] Performed By: #### L [id number] #### [facility] CLIA [id number] [address] [place] [address] [place] Malonate/Creatinine (U) [Molar ratio] 0.0 umol/mmolCr Normal 0.0-0.1 [facility] Comment on above: Order Comment: Speci men Type: URINE SPECIMEN Ordering Facility: [facility] Address: [address] [place] [address] Performed By: #### L [id number] #### [facility] CLIA [id number] [address] [place] [address] [place] Methylmalonate/Creatin ine (U) [Molar ratio] <0.4 Normal 0.0-0.6 [facility] Comment on above: Order Comment: Speci men Type: URINE SPECIMEN Ordering Facility: [facility] Address: [address] [place] [address] Performed By: #### L [id number] #### [facility] CLIA [id number] [address] [place] [address] [place] Methylsuccinate/Creati nine (U) [Molar ratio] 0.8 umol/mmolCr Normal 0.0-1.4 [facility] Comment on above: Order Comment: Speci men Type: URINE SPECIMEN Ordering Facility: [facility] Address: [address] [place] [address] Performed By: #### L [id number] #### [facility] CLIA [id number] [address] [place] [address] [place] N-acetylaspartate/Crea tinine (U) [Molar ratio] 1.5 umol/mmolCr Normal 0.1-8.9 [facility] Comment on above: Order Comment: Speci men Type: URINE SPECIMEN Ordering Facility: [facility] Address: [address] [place] [address] Performed By: #### L [id number] #### [facility] CLIA [id number] [address] [place] [address] [place] N-acetyltyrosine/Creat inine (U) [Molar ratio] <0.2 Normal 0.0-1.2 [facility] Comment on above: Order Comment: Speci men Type: URINE SPECIMEN Ordering Facility: [facility] Address: [address] [place] [address] Performed By: #### L [id number] #### [facility] CLIA [id number] [address] [place] [address] [place] Oxalate/Creatinine (U) [Molar ratio] 3.1 umol/mmolCr Normal 0.7-12.4 [facility] Comment on above: Order Comment: Speci men Type: URINE SPECIMEN Ordering Facility: [facility] Address: [address] [place] [address] Performed By: #### L [id number] #### [facility] CLIA [id number] [address] [place] [address] [place] Pyruvate/Creatinine (U) [Molar ratio] 1.9 umol/mmolCr Normal 0.1-2.6 [facility] Comment on above: Order Comment: Speci men Type: URINE SPECIMEN Ordering Facility: [facility] Address: [address] [place] [address] Performed By: #### L [id number] #### [facility] CLIA [id number] [address] [place] [address] [place] Sebacate (C8)/Creatinine (U) [Molar ratio] <3.4 High 0.0-0.3 [facility] Comment on above: Order Comment: Speci men Type: URINE SPECIMEN Ordering Facility: [facility] Address: [address] [place] [address] Performed By: #### L [id number] #### [facility] CLIA [id number] [address] [place] [address] [place] Suberate/Creatinine (U) [Molar ratio] 2.3 umol/mmolCr Normal 0.0-7.4 [facility] Comment on above: Order Comment: Speci men Type: URINE SPECIMEN Ordering Facility: [facility] Address: [address] [place] [address] Performed By: #### L [id number] #### [facility] CLIA [id number] [address] [place] [address] [place] Suberylglycine/Creatin ine (U) [Molar ratio] 0.0 umol/mmolCr Normal <=0.0 [facility] Comment on above: Order Comment: Speci men Type: URINE SPECIMEN Ordering Facility: [facility] Address: [address] [place] [address] Performed By: #### L [id number] #### [facility] CLIA [id number] [address] [place] [address] [place] Succinate/Creatinine (U) [Molar ratio] 2.5 umol/mmolCr Normal 0.3-27.4 [facility] Comment on above: Order Comment: Speci men Type: URINE SPECIMEN Ordering Facility: [facility] Address: [address] [place] [address] Performed By: #### L [id number] #### [facility] CLIA [id number] [address] [place] [address] [place] Succinylacetone/Creati nine (U) [Molar ratio] <0.4 Normal <0.4 [facility] Comment on above: Order Comment: Speci men Type: URINE SPECIMEN Ordering Facility: [facility] Address: [address] [place] [address] Performed By: #### L [id number] #### [facility] CLIA [id number] [address] [place] [address] OF [facility] UOA CONSULTATION Normal [facility] Comment on above: Order Comment: Speci men Type: URINE SPECIMEN Ordering Facility: [facility] Address: [address] [place] [address] Result Comment: This urine organic acid analysis shows a slightly increased level of lactate and trace increased levels of 2- and 3-hydroxybutyrate, fumarate and malate. Increased urinary glucose is incidentally noted (not shown). These data may be related to the patient's clinical history of diabetes. NOTE: The biochemical expression of urinary organic acids in the genetic organic acidurias can be dependent on the nutritional status of the subject, the underlying genetic abnormality that he/she may have, concurrent illnesses and other factors. This is also true for other disorders for which urinary organic acid analysis is sometimes a diagnostic tool such as disorders of mitochondrial oxidative phosphorylation, disorders of mitochondrial fatty acid beta-oxidation, and some nutritional deficiencies. Consequently and unless otherwise stated, a normal or non-diagnostic test result on urinary organic acid analysis does not always rule-out the possibility of the types of disorders noted above. This test was developed and its performance characteristics determined by the [facility]. It has not been cleared or approved by the [place] Food and Drug Administration. The FDA had determined that such clearance or approval is not necessary. Performed By: #### L [id number] #### [facility] CLIA [id number] [address] [place] [address] [place] UOA REVIEW Reviewed by Corky Minaya MD, Ph.D ([id number]) Normal [facility] Comment on above: Order Comment: Speci men Type: URINE SPECIMEN Ordering Facility[facility] Address: [address] [place] [address] Performed By: #### L [id number] #### [facility] CLIA [id number] [address] [place] [address] [place] Uracil/Creatinine (U) [Molar ratio] <0.4 Normal 0.0-5.1 [facility] Comment on above: Order Comment: Speci men Type: URINE SPECIMEN Ordering Facility: [facility] Address: [address] [place] [address] Performed By: #### L [id number] #### [facility] CLIA [id number] [address] [place] [address] [place] PYRUVATE+LACTATE BLon 2024 Lactate [Moles/Vol] 1.8 mmol/L Normal 0.5-2.2 [facility] Comment on above: Order Comment: Speci men Type: BLOOD SPECIMEN Ordering Facility: [facility] Address: [address] [place] [address] Result Comment: This test was developed, and its performance characteristics determined by the [facility] Department of Pathology and Laboratory Medicine. It has not been cleared or approved by the FDA. The [facility] Department of Pathology and Laboratory Medicine is regulated under CLIA as qualified to perform high-complexity testing. This test is used for clinical purposes. It should not be regarded as investigational or for research. Performed By: #### C YTOKP #### [facility] [id number] [address] [place] [address] Pyruvate (Bld) [Moles/Vol] Normal [facility] Comment on above: Order Comment: Speci men Type: BLOOD SPECIMEN Ordering Facility: [facility] Address: [address] [place] [address] Result Comment: Unab le to assay. Analytical difficulty Performed By: #### C YTOKP #### [facility] CLIA [id number] [address] [place] [address] T4 Free SerPl-mCncon 025 Free T4 [Mass/Vol] 1.2 ng/dL Normal 0.9-1.7 [facility] Comment on above: Order Comment: Cynthia membreno Type: BLOOD SPECIMEN Ordering Facility: [facility] Address: [address] [place] [address] Performed By: #### C [facility] #### [facility] CLIA [id number] [address] [place] [address] THYROID STIMULATING HORMONEo n 12-02-2024 TSH Qn 0.31 m[IU]/L [facility] Comment on above: If the patient is pr egnant, TSH reference range varies by gestational period: First Trimester (weeks 9-12): 0.180-2.990 mIU/L Second Trimester: 0.110-3.980 mIU/L Third Trimester: 0.480-4.710 mIU/L Basil Scruggs et al. A Practical Approach for the Verifications and Determination of Site- and Trimester-Specific Reference Intervals for Thyroid Function tests in . Thyroid, 2019:29:3:412-420. Luis E, et al. 2017 Guidelines of the [place] [employer] for the Diagnosis and Management of Thyroid Disease during and the . Thyroid, 2017:27:3:315-389. TSH Qnon 12-02-2024 Interpretation and review of laboratory results Normal [facility] TSH SerPl-aCncon 12-02-2024 TSH Qn 0.310 m[IU]/L Normal 0.270-4.200 [facility] Comment on above: Order Comment: Cynthia membreno Type: BLOOD SPECIMEN Ordering Facility[facility] Address: [address] [place] [address] Result Comment: If t he patient is , TSH reference range varies by gestational period: First Trimester (weeks 9-12): 0.180-2.990 mIU/L Second Trimester: 0.110-3.980 mIU/L Third Trimester: 0.480-4.710 mIU/L Basil Scruggs et al. A Practical Approach for the Verifications and Determination of Site- and Trimester-Specific Reference Intervals for Thyroid Function tests in . Thyroid, 2019:29:3:412-420. Luis Gomez, et al. 2017 Guidelines of the [place] [employer] for the Diagnosis and Management of Thyroid Disease during and the . Thyroid, 2017:27:3:315-389. Performed By: #### C YTDANIEL #### [facility] CLIA [id number] [address] [place] [address] VOLTAGE GATED CA IGGon 12-02 P/Q-TYPE CALCIUM CHANNEL ANTIBODY 3.1 pmol/L Normal 0.0-24.5 [facility] Comment on above: Order Comment: Cynthia membreno Type: BLOOD SPECIMEN Ordering Facility[facility] Address: [address] [place] [address] Result Comment: INTE RPRETIVE INFORMATION: P/Q-Type Calcium Channel Antibody 0.0 to 24.5 pmol/L ............. Negative 24.6 to 45.6 pmol/L ............ Indeterminate 45.7 pmol/L or greater.......... Positive This test was developed and its performance characteristics determined by [facility]. It has not been cleared or approved by the [place] Food and Drug Administration. This test was performed in a CLIA certified laboratory and is intended for clinical purposes. Performed By: [facility] [address] [place] [address] Air Hoist Operator: Roger Atkins MD, PhD CLIA Number: [id number] Performed By: #### Macy YTOKP #### [facility] [employer] CLIA [id number] [address] [place] [address] VOLTAGE-GATED POTASSIUM REY ABon 12-02-2024 VOLTAGE-GATED POTASSIUM CHANNEL AB, SER 0 pmol/L Normal 0-31 [facility] Comment on above: Order Comment: Cynthia membreno Type: BLOOD SPECIMEN Ordering [facility] Address: [facility] [place] [address] Result Comment: INTE RPRETIVE INFORMATION: Voltage-Gated Potassium Channel (VGKC) Antibody, Serum Negative ....... 31 pmol/L or less Indeterminate... 32 - 87 pmol/L Positive ....... 88 pmol/L or greater Voltage-Gated Potassium Channel (VGKC) antibodies are associated with neuromuscular weakness as found in neuromyotonia (also known as Issacs syndrome) and Morvan syndrome. VGKC antibodies are also associated with paraneoplastic neurological syndromes and limbic encephalitis; however, VGKC antibody-associated limbic encephalitis may be associated with antibodies to leucine-rich, glioma-inactivated 1 protein (LGI1) or contactin-associated protein-2 (CASPR2) instead of potassium channel antigens. A substantial number of [facility]-antibody positive cases are negative for LGI1 and CASPR2 IgG autoantibodies, not all [facility] complex antigens are known. The clinical significance of this test can only be determined in conjunction with the patient's clinical history and related laboratory testing. This test was developed and its performance characteristics determined by [employer]. It has not been cleared or approved by the [place] Food and Drug Administration. This test was performed in a CLIA certified laboratory and is intended for clinical purposes. Performed By: [facility] [email or web address] [address] [place] [address] Air Hoist Operator: Roger Atkins MD, PhD CLIA Number: [id number] Performed By: #### V [facility] #### [facility] CLIA [id number] [address] [place] [address] CBC auto differentialon 10-24 Basophils (Bld) [#/Vol] 0.05 10*3/uL [facility] Basophils/100 WBC (Bld) 1 % 0 - 2 % [facility] Eosinophils (Bld) [#/Vol] 0.12 10*3/uL [facility] Eosinophils/100 WBC (Bld) 1 % 1 - 4 % [facility] Erythrocyte distribution width (RBC) [Ratio] 14.1 % 11.8 - 14.4 % [facility] Hematocrit (Bld) [Volume fraction] 40.7 % 36.3 - 47.1 % [facility] Hemoglobin (Bld) [Mass/Vol] 13.4 g/dL 11.9 - 15.1 g/dL [facility] Immature granulocytes (Bld) [#/Vol] 0.03 10*3/uL [facility] Immature granulocytes/100 WBC (Bld) 0 % 0 [facility] Lymphocytes/100 WBC (Bld) 27 % 24 - 43 % [facility] Lymphocytes/100 WBC (Bld) 2.60 % [facility] MCH (RBC) [Entitic mass] 28.6 pg 25.2 - 33.5 pg [facility] MCHC (RBC) [Mass/Vol] 32.9 g/dL 28.4 - 34.8 g/dL [facility] MCV (RBC) [Entitic vol] 87.0 fL 82.6 - 102.9 fL [facility] Monocytes/100 WBC (Bld) 6 % 3 - 12 % [facility] Monocytes/100 WBC (Bld) 0.60 % [facility] Neutrophils/100 WBC (Bld) 65 % 36 - 65 % [facility] Nucleated RBC/100 WBC (Bld) [Ratio] 0.0 % 0.0 per 100 WBC [facility] Platelet mean volume (Bld) [Entitic vol] 9.7 fL 8.1 - 13.5 fL [facility] Platelets (Bld) [#/Vol] 219 10*3/uL [facility] RBC (Bld) [#/Vol] 4.68 10*6/uL 3.95 - 5.1 1 m/uL [facility] Segmented neutrophils/100 WBC (Bld) 6.40 % [facility] WBC other (Bld) [#/Vol] 9.8 [facility] CBC with Diffon 11-06-2024 Abs. Basophil 0.05 k/uL Normal 0.00-0.20 [facility] Comment on above: Performed By: #### C DP, CMPX, LIP ####[facility] , [place] [id number] Lab Director: Murtaza Arceo MD Abs.Imm.Granulocyte 0.03 k/uL Normal 0.00-0.30 [facility] Comment on above: Performed By: #### C DP, CMPX, LIP ####[facility] , [place] [id number] Lab Director: Murtaza Arceo MD Abs.Neutrophil (Seg) 6.40 k/uL Normal 1.50-8.10 [facility] Comment on above: Performed By: #### C DP, CMPX, LIP ####[address] , [place] [id number] Lab Director: Murtaza Arceo MD Basophils/100 WBC (Bld) 1 % Normal 0-2 [facility] Comment on above: Performed By: #### C DP, CMPX, LIP ####[address] [place] [address] Lab Director: Murtaza Arceo MD Eosinophils (Bld) [#/Vol] 0.12 10*3/uL Normal 0.00-0.44 [facility] Comment on above: Performed By: #### C DP, CMPX, LIP ####[address] , [facility]83[facility])[phone] Director: Murtaza Arceo MD Eosinophils/100 WBC (Bld) 1 % Normal 1-4 [facility] Comment on above: Performed By: #### C DP, CMPX, LIP ####[address] [place] [address] Lab Director: Murtaza Arceo MD Erythrocyte distribution width (RBC) [Ratio] 14.1 % Normal 11.8-14.4 [facility] Comment on above: Performed By: #### C DP, CMPX, LIP ####[address] [place] [address] Lab Director: Murtaza Arceo MD Hematocrit (Bld) [Volume fraction] 40.7 % Normal 36.3-47.1 [facility] Comment on above: Performed By: #### C DP, CMPX, LIP ####[address] , [place] [address] Lab Director: Murtaza Arceo MD Hemoglobin (Bld) [Mass/Vol] 13.4 g/dL Normal 11.9-15.1 [facility] Comment on above: Performed By: #### C DP, CMPX, LIP ####[address] , [place] [id number] Lab Director: Murtaza Arceo MD Immature granulocytes/100 WBC (Bld) 0 % Normal 0 [facility] Comment on above: Performed By: #### C DP, CMPX, LIP ####[address] [place] [address] Lab Director: Murtaza Arceo MD Lymphocytes (Bld) [#/Vol] 2.60 10*3/uL Normal 1.10-3.70 [facility] Comment on above: Performed By: #### C DP, CMPX, LIP ####[address] [place] [address] Lab Director: Murtaza Arceo MD Lymphocytes/100 WBC (Bld) 27 % Normal 24-43 [facility] Comment on above: Performed By: #### C DP, CMPX, LIP ####[address] [place] [address] Lab Director: Murtaza Arceo MD MCH (RBC) [Entitic mass] 28.6 pg Normal 25.2-33.5 [facility] Comment on above: Performed By: #### C DP, CMPX, LIP ####[address] [place] [address] Lab Director: Murtaza Arceo MD MCHC (RBC) [Mass/Vol] 32.9 g/dL Normal 28.4-34.8 [facility] Comment on above: Performed By: #### C DP, CMPX, LIP ####[address] , [place] [address]83 Lab Director: Murtaza Arceo MD MCV (RBC) [Entitic vol] 87.0 fL Normal 82.6-102.9 [facility] Comment on above: Performed By: #### C DP, CMPX, LIP ####[address] , [place] [address] [facility] Director: Murtaza Arceo MD Monocytes (Bld) [#/Vol] 0.60 10*3/uL Normal 0.10-1.20 [facility] Comment on above: Performed By: #### C DP, CMPX, LIP ####[address] [place] [address] Lab Director: Murtaza Arceo MD Monocytes/100 WBC (Bld) 6 % Normal 3-12 [facility] Comment on above: Performed By: #### C DP, CMPX, LIP ####[address] , [place] [address] [facility] Director: Murtaza Arceo MD Neutrophil (Seg) 65 % Normal 36-65 [facility] Comment on above: Performed By: #### C DP, CMPX, LIP ####[address] [place] [address] Lab Director: Murtaza Arceo MD NRBC Automated 0.0 per 100 WBC Normal 0.0 [facility] Comment on above: Performed By: #### C DP, CMPX, LIP ####[address] , [facility] Lab Director: Murtaza Arceo MD Platelet mean volume (Bld) [Entitic vol] 9.7 fL Normal 8.1-13.5 [facility] Comment on above: Performed By: #### C DP, CMPX, LIP ####[address] , [place] [id number] Lab Director: Murtaza Arceo MD Platelets (Bld) [#/Vol] 219 10*3/uL Normal 138-453 [facility] Comment on above: Performed By: #### C DP, CMPX, LIP ####[address] [place] [address] lab Director: Murtaza Arceo MD RBC (Bld) [#/Vol] 4.68 10*6/uL Normal 3.95-5.11 [facility] Comment on above: Performed By: #### C DP, CMPX, LIP ####[address] , [place] [id number] lab Director: Murtaza Arceo MD WBC (Bld) [#/Vol] 9.8 10*3/uL Normal 3.5-11.3 [facility] Comment on above: Performed By: #### C DP, CMPX, LIP ####[address] , [place] [id number] lab Director: Murtaza Arceo MD CT ABDOMEN PELVIS W IV CONTR [place] 11-06-2024 EXAMINATION: CT OF THE ABDOMEN AND PELVIS WITH CONTRAST 11/04/2024 11:44 pm TECHNIQUE: CT of the abdomen and pelvis was performed with the administration of intravenous contrast. Multiplanar reformatted images are provided for review. Automated exposure control, iterative reconstruction, and/or weight based adjustment of the mA/kV was utilized to reduce the radiation dose to as low as reasonably achievable. COMPARISON: June 08, 2024. HISTORY: ORDERING SYSTEM PROVIDED HISTORY: pancreatitis TECHNOLOGIST PROVIDED HISTORY: pancreatitis Decision Support Exception - unselect if not a suspected or confirmed emergency medical condition->Emergency Medical Condition (MA) FINDINGS: Lower Chest: Clear lung bases. Organs: Low-attenuation of the liver is compatible with steatosis. Liver is enlarged, measuring 24 cm in length. Status post cholecystectomy. No intra or extrahepatic biliary dilatation. The spleen, pancreas, adrenal glands and kidneys demonstrate no acute abnormality. The collecting systems are unremarkable. GI/Bowel: Stomach, small bowel, and colon are normal in course and caliber without evidence of wall thickening or obstruction. Normal appendix. Pelvis: Normal bladder. Uterus is surgically absent. No suspicious adnexal masses. Peritoneum/Retroperito neum: No free fluid or free air. No pathologic lymphadenopathy. Aorta and its branches are unremarkable. Bones/Soft Tissues: No acute or aggressive osseous lesion. IMPRESSION: 1. No acute intra-abdominal or pelvic abnormality. Specifically, no evidence of acute pancreatitis on CT. 2. Hepatic steatosis and hepatomegaly. 3. Cholecystectomy and hysterectomy. Interpreted by: Aliyah Peteresn MD Signed by: Aliyah Petersen MD 11/06/24 Final result [facility] RadiologyRobert MD - 11/06/2024 EXAMINATION: CT OF THE ABDOMEN AND PELVIS WITH CONTRAST 11/04/2024 11:44 pm TECHNIQUE: CT of the abdomen and pelvis was performed with the administration of intravenous contrast. Multiplanar reformatted images are provided for review. Automated exposure control, iterative reconstruction, and/or weight based adjustment of the mA/kV was utilized to reduce the radiation dose to as low as reasonably achievable. COMPARISON: June 08, 2024. HISTORY: ORDERING SYSTEM PROVIDED HISTORY: pancreatitis TECHNOLOGIST PROVIDED HISTORY: pancreatitis Decision Support Exception - unselect if not a suspected or confirmed emergency medical condition->Emergency Medical Condition (MA) FINDINGS: Lower Chest: Clear lung bases. Organs: Low-attenuation of the liver is compatible with steatosis. Liver is enlarged, measuring 24 cm in length. Status post cholecystectomy. No intra or extrahepatic biliary dilatation. The spleen, pancreas, adrenal glands and kidneys demonstrate no acute abnormality. The collecting systems are unremarkable. GI/Bowel: Stomach, small bowel, and colon are normal in course and caliber without evidence of wall thickening or obstruction. Normal appendix. Pelvis: Normal bladder. Uterus is surgically absent. No suspicious adnexal masses. Peritoneum/Retroperito neum: No free fluid or free air. No pathologic lymphadenopathy. Aorta and its branches are unremarkable. Bones/Soft Tissues: No acute or aggressive osseous lesion. IMPRESSION: 1. No acute intra-abdominal or pelvic abnormality. Specifically, no evidence of acute pancreatitis on CT. 2. Hepatic steatosis and hepatomegaly. 3. Cholecystectomy and hysterectomy. Interpreted by: Aliyah Petersen MD Signed by: Aliyah Petesren MD 11/06/24 Final result [facility] CT ABDOMEN PELVIS W IV CONTRAST Normal [facility] Radiology Study observation (narrative) [facility] CT ABDOMEN PELVIS W IV CONTR ASTOrdered By: Radiologist Radiology on 11-06-2024 [facility] Work Phone: CT Abdomen and Pelvis Jaya Thorpe 11-06-2024 1. No acute intra-abdominal or pelvic abnormality. Specifically, no evidence of acute pancreatitis on CT. 2. Hepatic steatosis and hepatomegaly. 3. Cholecystectomy and hysterectomy. [facility] EXAMINATION: CT OF THE ABDOMEN AND PELVIS WITH CONTRAST 11/04/2024 11:44 pm TECHNIQUE: CT of the abdomen and pelvis was performed with the administration of intravenous contrast. Multiplanar reformatted images are provided for review. Automated exposure control, iterative reconstruction, and/or weight based adjustment of the mA/kV was utilized to reduce the radiation dose to as low as reasonably achievable. COMPARISON: June 08, 2024. HISTORY: ORDERING SYSTEM PROVIDED HISTORY: pancreatitis TECHNOLOGIST PROVIDED HISTORY: pancreatitis Decision Support Exception - unselect if not a suspected or confirmed emergency medical condition->Emergency Medical Condition (MA) FINDINGS: Lower Chest: Clear lung bases. Organs: Low-attenuation of the liver is compatible with steatosis. Liver is enlarged, measuring 24 cm in length. Status post cholecystectomy. No intra or extrahepatic biliary dilatation. The spleen, pancreas, adrenal glands and kidneys demonstrate no acute abnormality. The collecting systems are unremarkable. GI/Bowel: Stomach, small bowel, and colon are normal in course and caliber without evidence of wall thickening or obstruction. Normal appendix. Pelvis: Normal bladder. Uterus is surgically absent. No suspicious adnexal masses. Peritoneum/Retroperito neum: No free fluid or free air. No pathologic lymphadenopathy. Aorta and its branches are unremarkable. Bones/Soft Tissues: No acute or aggressive osseous lesion. [facility] Aliyah Petersen MD - 11/06/2024 EXAMINATION: CT OF THE ABDOMEN AND PELVIS WITH CONTRAST 11/04/2024 11:44 pm TECHNIQUE: CT of the abdomen and pelvis was performed with the administration of intravenous contrast. Multiplanar reformatted images are provided for review. Automated exposure control, iterative reconstruction, and/or weight based adjustment of the mA/kV was utilized to reduce the radiation dose to as low as reasonably achievable. COMPARISON: June 08, 2024. HISTORY: ORDERING SYSTEM PROVIDED HISTORY: pancreatitis TECHNOLOGIST PROVIDED HISTORY: pancreatitis Decision Support Exception - unselect if not a suspected or confirmed emergency medical condition->Emergency Medical Condition (MA) FINDINGS: Lower Chest: Clear lung bases. Organs: Low-attenuation of the liver is compatible with steatosis. Liver is enlarged, measuring 24 cm in length. Status post cholecystectomy. No intra or extrahepatic biliary dilatation. The spleen, pancreas, adrenal glands and kidneys demonstrate no acute abnormality. The collecting systems are unremarkable. GI/Bowel: Stomach, small bowel, and colon are normal in course and caliber without evidence of wall thickening or obstruction. Normal appendix. Pelvis: Normal bladder. Uterus is surgically absent. No suspicious adnexal masses. Peritoneum/Retroperito neum: No free fluid or free air. No pathologic lymphadenopathy. Aorta and its branches are unremarkable. Bones/Soft Tissues: No acute or aggressive osseous lesion. IMPRESSION: 1. No acute intra-abdominal or pelvic abnormality. Specifically, no evidence of acute pancreatitis on CT. 2. Hepatic steatosis and hepatomegaly. 3. Cholecystectomy and hysterectomy. [facility] CT Abdomen and Pelvis W cont rast IVOrdered By: Aliyah Petersen on 11-06-2024 [facility] Work Phone: Comp Metabolic Pr/rfx MGon 0 11-06-2024 Albumin [Mass/Vol] 3.7 g/dL Normal 3.5-5.2 [facility] Comment on above: Performed By: #### C DP, CMPX, LIP ####[address] [place] [address] lab Director: Murtaza Arceo MD Albumin/Glob Ratio 1.5 Normal 1.0-2.5 [facility] Comment on above: Performed By: #### C DP, CMPX, LIP ####[facility] [place] [address] lab Director: Murtaza Arceo MD Alkaline Phos 89 U/L Normal 35-104 [facility] Comment on above: Performed By: #### C DP, CMPX, LIP ####[address] [place] [address] lab Director: Murtaza Arceo MD ALT [Catalytic activity/Vol] 38 U/L High 10-35 [facility] Comment on above: Performed By: #### C DP, CMPX, LIP ####[address] , [place] 7[address] Lab Director: Murtaza Arceo MD Anion gap [Moles/Vol] 9 mmol/L Normal 9-16 [facility] Comment on above: Performed By: #### C DP, CMPX, LIP ####[address] , [place] 950[address] Lab Director: Murtaza Arceo MD AST [Catalytic activity/Vol] 44 U/L High 10-35 [facility] Comment on above: Performed By: #### C DP, CMPX, LIP ####[address] , [place] [address] lab Director: Murtaza Arceo MD Bilirubin [Mass/Vol] 0.6 mg/dL Normal 0.00-1.20 [facility] Comment on above: Performed By: #### C DP, CMPX, LIP ####[address] , [place] 0[address] Lab Director: Murtaza Arceo MD BUN/CRE Ratio 11 Normal 9-20 [facility] Comment on above: Performed By: #### C DP, CMPX, LIP ####[address] , [place] [id number] Lab Director: Murtaza Arceo MD Calcium [Mass/Vol] 8.8 mg/dL Normal 8.6-10.4 [facility] Comment on above: Performed By: #### C DP, CMPX, LIP ####[address] , [place] 459[address] Lab Director: Murtaza Arceo MD Chloride [Moles/Vol] 106 mmol/L Normal 98-107 [facility] Comment on above: Performed By: #### C DP, CMPX, LIP ####[address] , [place] 3[address] lab Director: Murtaza Arceo MD CO2 [Moles/Vol] 26 mmol/L Normal 20-31 [facility] Comment on above: Performed By: #### C DP, CMPX, LIP ####[address] [place] [address] lab Director: Murtaza Arceo MD Creatinine [Mass/Vol] 0.7 mg/dL Normal 0.50-0.90 [facility] Comment on above: Performed By: #### C DP, CMPX, LIP ####[address] [place] [address] lab Director: Murtaza Arceo MD GFR/1.73 sq M.predicted among non-blacks MDRD (S/P/Bld) [Vol rate/Area] mL/min/{1.73_m2} Normal >60 [facility] Comment on above: Result Comment: Thes [...] tubular secretion. Performed By: #### C DP, CMPX, LIP ####[address] [place] [address] lab Director: Murtaza Arceo MD Glucose [Mass/Vol] 169 mg/dL High 74-99 [facility] Comment on above: Performed By: #### C DP, CMPX, LIP ####[address] [place] [address] lab Director: Murtaza Arceo MD Potassium [Moles/Vol] 4.4 mmol/L Normal 3.7-5.3 [facility] Comment on above: Performed By: #### C DP, CMPX, LIP ####[address] [place] [address] Lab Director: Murtaza Arceo MD Protein [Mass/Vol] 6.2 g/dL Low 6.6-8.7 [facility] Comment on above: Performed By: #### C DP, CMPX, LIP ####[address] , [place] 315[address] lab Director: Murtaza Arceo MD Sodium [Moles/Vol] 141 mmol/L Normal 136-145 [facility] Comment on above: Performed By: #### C DP, CMPX, LIP ####[address] , [place] 9[address] lab Director: Murtaza Arceo MD Urea nitrogen [Mass/Vol] 8 mg/dL Normal 6-20 [facility] Comment on above: Performed By: #### C DP, CMPX, LIP ####[address] , [place] 29[address] lab Director: Murtaza Arceo MD Comprehensive Metabolic Pane l w/ Reflex to on 11-06-2024 Albumin [Mass/Vol] 3.7 g/dL 3.5 - 5.2 g/dL [facility] Albumin/Globulin [Mass ratio] 1.5 {ratio} 1.0 - 2.5 [facility] ALP [Catalytic activity/Vol] 89 U/L 35 - 104 U/L [facility] ALT [Catalytic activity/Vol] 38 U/L High 10 - 35 U/L [facility] Anion gap [Moles/Vol] 9 mmol/L 9 - 16 mmol/L [facility] AST [Catalytic activity/Vol] 44 U/L High 10 - 35 U/L [facility] Bilirubin [Mass/Vol] 0.6 mg/dL 0.00 - 1.20 mg/dL [facility] Calcium [Mass/Vol] 8.8 mg/dL 8.6 - 10. 4 mg/dL [facility] Chloride [Moles/Vol] 106 mmol/L 98 - 10 7 mmol/L [facility] CO2 [Moles/Vol] 26 mmol/L 20 - 31 mmol/L [facility] Creatinine [Mass/Vol] 0.7 mg/dL 0.50 - 0.90 mg/dL [facility]ar[facility] Comment on above: These results are not [...] that affects renal tubular secretion. Glucose [Mass/Vol] 169 mg/dL High 74 - 99 mg/dL [facility] Potassium [Moles/Vol] 4.4 mmol/L 3.7 - 5.3 mmol/L [facility] Protein [Mass/Vol] 6.2 g/dL Low 6.6 - 8.7 g/dL [facility] Sodium [Moles/Vol] 141 mmol/L 136 - 145 mmol/L [facility] Urea nitrogen [Mass/Vol] 8 mg/dL 6 - 20 mg/dL [facility] Urea nitrogen/Creatinine [Mass ratio] 11 mg/mg 9 - 20 [facility] Glucose, Whole Bloodon 11-06 Glucose [Mass/Vol] 209 mg/dL High 74 - 100 mg/dL [facility] Interpretation and review of laboratory results Abnormal [facility] Glucose [Mass/Vol] 209 mg/dL High 74-100 [facility] Glucose [Mass/Vol] 173 mg/dL High 74 - 100 mg/dL [facility] Interpretation and review of laboratory results Abnormal [facility] Glucose [Mass/Vol] 173 mg/dL High 74-100 [facility] Lipaseon 11-06-2024 Lipase [Catalytic activity/Vol] 190 U/L High 13 - 60 U/L [facility] Lipase [Catalytic activity/Vol] 190 U/L High 13-60 [facility] Comment on above: Performed By: #### C DP, CMPX, LIP ####[facility] [place] [address] lab Director: Murtaza Arceo MD PT CBC WITH DIFFon 025 Basophils/100 WBC (Bld) 1 % 0 - 2 % [facility] Eosinophils/100 WBC (Bld) 1 % 1 - 4 % [facility] Erythrocyte distribution width (RBC) [Ratio] 14.1 % 11.8 - 14.4 % [facility] Hematocrit (Bld) [Volume fraction] 40.7 % 36.3 - 47.1 % [facility] Hemoglobin (Bld) [Mass/Vol] 13.4 g/dL 11.9 - 15.1 g/dL [facility] Immature granulocytes/100 WBC (Bld) 0 % 0 [facility] Lymphocytes/100 WBC (Bld) 27 % 24 - 43 % [facility] MCH (RBC) [Entitic mass] 28.6 pg 25.2 - 33.5 pg [facility] MCHC (RBC) [Mass/Vol] 32.9 g/dL 28.4 - 34.8 g/dL [facility] MCV (RBC) [Entitic vol] 87 fL 82.6 - 102.9 [facility]L [facility].05 [facility] EOSINOPHIL 0.12 [facility] LYMPH 2.6 [facility] MONOCYTE 0.6 [facility].IMM.GRANULOCYTE 0.03 [facility].NEUTROPHIL (SEG) 6.4 [facility] NRBC AUTOMATED 0 0.0 per 100 WBC [facility] PLATELET COUNT 219 [facility] WBC COUNT 9.8 [facility] Monocytes/100 WBC (Bld) 6 % 3 - 12 % [facility] Platelet mean volume (Bld) [Entitic vol] 9.7 fL 8.1 - 13.5 fL [facility] RBC (Bld) [#/Vol] 4.68 10*6/uL 3.95 - 5.1 1 m/uL [facility] Segmented neutrophils/100 WBC (Bld) 65 % 36 - 65 % [facility] Original Ordering Provider: COLTEN SINGH [facility] No Panel Informationon 11-06 Interpretation and review of laboratory results Abnormal [facility] CBC auto differentialon 10-24 Basophils (Bld) [#/Vol] 0.04 10*3/uL [facility] Basophils/100 WBC (Bld) 0 % 0 - 2 % [facility] Eosinophils (Bld) [#/Vol] 0.14 10*3/uL [facility] Eosinophils/100 WBC (Bld) 1 % 1 - 4 % [facility] Erythrocyte distribution width (RBC) [Ratio] 14.1 % 11.8 - 14.4 % [facility] Hematocrit (Bld) [Volume fraction] 43.0 % 36.3 - 47.1 % [facility] Hemoglobin (Bld) [Mass/Vol] 14.1 g/dL 11.9 - 15.1 g/dL [facility] Immature granulocytes (Bld) [#/Vol] 0.04 10*3/uL [facility] Immature granulocytes/100 WBC (Bld) 0 % 0 [facility] Interpretation and review of laboratory results [facility] Lymphocytes/100 WBC (Bld) 33 % 24 - 43 % [facility] Lymphocytes/100 WBC (Bld) 4.03 % High [facility] MCH (RBC) [Entitic mass] 28.9 pg 25.2 - 33.5 pg [facility] MCHC (RBC) [Mass/Vol] 32.8 g/dL 28.4 - 34.8 g/dL [facility] MCV (RBC) [Entitic vol] 88.1 fL 82.6 - 102.9 fL [facility] Monocytes/100 WBC (Bld) 6 % 3 - 12 % [facility] Monocytes/100 WBC (Bld) 0.77 % [facility] Neutrophils/100 WBC (Bld) 60 % 36 - 65 % [facility] Nucleated RBC/100 WBC (Bld) [Ratio] 0.0 % 0.0 per 100 WBC [facility] Platelet mean volume (Bld) [Entitic vol] 9.8 fL 8.1 - 13.5 fL [facility] Platelets (Bld) [#/Vol] 249 10*3/uL [facility] RBC (Bld) [#/Vol] 4.88 10*6/uL 3.95 - 5.1 1 m/uL [facility] Segmented neutrophils/100 WBC (Bld) 7.13 % [facility] WBC other (Bld) [#/Vol] 12.2 High [facility] CBC with Diffon 11-05-2024 Abs. Basophil 0.04 k/uL Normal 0.00-0.20 [facility] Comment on above: Performed By: #### C DP, CMPX, LIP ####[address] [place] [id number] Lab Director: Murtaza Arceo MD Abs.Imm.Granulocyte 0.04 k/uL Normal 0.00-0.30 [facility] Comment on above: Performed By: #### C DP, CMPX, LIP ####[address] , [id number] Lab Director: Murtaza Arceo MD Abs.Neutrophil (Seg) 7.13 k/uL Normal 1.50-8.10 [facility] Comment on above: Performed By: #### C DP, CMPX, LIP ####[address] [place] [id number] Lab Director: Murtaza Arceo MD Basophils/100 WBC (Bld) 0 % Normal 0-2 [facility] Comment on above: Performed By: #### C DP, CMPX, LIP ####[address] [place] [address] Lab Director: Murtaza Arceo MD Eosinophils (Bld) [#/Vol] 0.14 10*3/uL Normal 0.00-0.44 [facility] Comment on above: Performed By: #### C DP, CMPX, LIP ####[address] [place] [address] Lab Director: Murtaza Arceo MD Eosinophils/100 WBC (Bld) 1 % Normal 1-4 [facility] Comment on above: Performed By: #### C DP, CMPX, LIP ####[address] [place] [address] Lab Director: Murtaza Arceo MD Erythrocyte distribution width (RBC) [Ratio] 14.1 % Normal 11.8-14.4 [facility] Comment on above: Performed By: #### C DP, CMPX, LIP ####[address] [place] [address] Lab Director: Murtaza Arceo MD Hematocrit (Bld) [Volume fraction] 43.0 % Normal 36.3-47.1 [facility] Comment on above: Performed By: #### C DP, CMPX, LIP ####[address] [place] [address] Lab Director: Murtaza Arceo MD Hemoglobin (Bld) [Mass/Vol] 14.1 g/dL Normal 11.9-15.1 [facility] Comment on above: Performed By: #### C DP, CMPX, LIP ####[address] [place] [address] Lab Director: Murtaza Arceo MD Immature granulocytes/100 WBC (Bld) 0 % Normal 0 [facility] Comment on above: Performed By: #### C DP, CMPX, LIP ####[address] [place] [address] Lab Director: Murtaza rAceo MD Lymphocytes (Bld) [#/Vol] 4.03 10*3/uL High 1.10-3.70 [facility] Comment on above: Performed By: #### C DP, CMPX, LIP ####[address] [place] [address] Lab Director: Murtaza Arceo MD Lymphocytes/100 WBC (Bld) 33 % Normal 24-43 [facility] Comment on above: Performed By: #### C DP, CMPX, LIP ####[address] [place] [address] Lab Director: Murtaza Arceo MD MCH (RBC) [Entitic mass] 28.9 pg Normal 25.2-33.5 [facility] Comment on above: Performed By: #### C DP, CMPX, LIP ####[address] [place] [address] Lab Director: Murtaza Arceo MD MCHC (RBC) [Mass/Vol] 32.8 g/dL Normal 28.4-34.8 [facility] Comment on above: Performed By: #### C DP, CMPX, LIP ####[address] , [id number])[phone] Director: Murtaza Arceo MD MCV (RBC) [Entitic vol] 88.1 fL Normal 82.6-102.9 [facility] Comment on above: Performed By: #### C DP, CMPX, LIP ####[address] [place] [id number])[phone] Director: Murtaza Arceo MD Monocytes (Bld) [#/Vol] 0.77 10*3/uL Normal 0.10-1.20 [facility] Comment on above: Performed By: #### C DP, CMPX, LIP ####[address] , [id number] Lab Director: Murtaza Arceo MD Monocytes/100 WBC (Bld) 6 % Normal 3-12 [facility] Comment on above: Performed By: #### C DP, CMPX, LIP ####[address] , [id number] Lab Director: Murtaza Arcoe MD Neutrophil (Seg) 60 % Normal 36-65 [facility] Comment on above: Performed By: #### C DP, CMPX, LIP ####[address] , [place] 2872183 Lab Director: Murtaza Arceo MD NRBC Automated 0.0 per 100 WBC Normal 0.0 [facility] Comment on above: Performed By: #### C DP, CMPX, LIP ####[address] [place] [address] Lab Director: Murtaza Arceo MD Platelet mean volume (Bld) [Entitic vol] 9.8 fL Normal 8.1-13.5 [facility] Comment on above: Performed By: #### C DP, CMPX, LIP ####[address] [place] [address] Lab Director: Murtaza Arceo MD Platelets (Bld) [#/Vol] 249 10*3/uL Normal 138-453 [facility] Comment on above: Performed By: #### C DP, CMPX, LIP ####[address] [place] [address] Lab Director: Murtaza Arceo MD RBC (Bld) [#/Vol] 4.88 10*6/uL Normal 3.95-5.11 [facility] Comment on above: Performed By: #### C DP, CMPX, LIP ####[address] , [place] [phone] Director: Murtaza Arceo MD WBC (Bld) [#/Vol] 12.2 10*3/uL High 3.5-11.3 [facility] Comment on above: Performed By: #### C DP, CMPX, LIP ####[address] , [place] [phone] Director: Murtaza Arceo MD Comp Metabolic Pr/rfx MGon 0 - Albumin [Mass/Vol] 4.0 g/dL Normal 3.5-5.2 [facility] Comment on above: Performed By: #### C DP, CMPX, LIP ####[address] , [place] 701[address] Lab Director: Murtaza Arceo MD Albumin/Glob Ratio 1.5 Normal 1.0-2.5 [facility] Comment on above: Performed By: #### C DP, CMPX, LIP ####[address] , [place] [phone] lab Director: Murtaza Arceo MD Alkaline Phos 88 U/L Normal 35-104 [facility] Comment on above: Performed By: #### C DP, CMPX, LIP ####[address] [place] [address] Lab Director: Murtaza Arceo MD ALT [Catalytic activity/Vol] 23 U/L Normal 10-35 [facility] Comment on above: Performed By: #### C DP, CMPX, LIP ####[address] [place] [address] Lab Director: Murtaza Arceo MD Anion gap [Moles/Vol] 9 mmol/L Normal 9-16 [facility] Comment on above: Performed By: #### C DP, CMPX, LIP ####[address] [place] [address] Lab Director: Murtaza Arceo MD AST [Catalytic activity/Vol] 23 U/L Normal 10-35 [facility] Comment on above: Performed By: #### C DP, CMPX, LIP ####[address] , [place] 8548983 Lab Director: Murtaza Arceo MD Bilirubin [Mass/Vol] 0.4 mg/dL Normal 0.00-1.20 [facility] Comment on above: Performed By: #### C DP, CMPX, LIP ####[address] , [place] 4753683 Lab Director: Murtaza Arceo MD BUN/CRE Ratio 24 High 9-20 [facility] Comment on above: Performed By: #### C DP, CMPX, LIP ####[address] , [place] 8011783 Lab Director: Murtaza Arceo MD Calcium [Mass/Vol] 9.1 mg/dL Normal 8.6-10.4 [facility] Comment on above: Performed By: #### C DP, CMPX, LIP ####[address] , [place] [phone] Lab Director: Murtaza Arceo MD Chloride [Moles/Vol] 106 mmol/L Normal 98-107 [facility] Comment on above: Performed By: #### C DP, CMPX, LIP ####[address] , [place] [phone] Lab Director: Murtaza Arceo MD CO2 [Moles/Vol] 27 mmol/L Normal 20-31 [facility] Comment on above: Performed By: #### C DP, CMPX, LIP ####[address] , [place] 9894283 Lab Director: Murtaza Arceo MD Creatinine [Mass/Vol] 0.8 mg/dL Normal 0.50-0.90 [facility] Comment on above: Performed By: #### C DP, CMPX, LIP ####[address] [place] [address] Lab Director: Murtaza Arceo MD GFR/1.73 sq M.predicted among non-blacks MDRD (S/P/Bld) [Vol rate/Area] mL/min/{1.73_m2} Normal >60 [facility] Comment on above: Result Comment: Thes [...] tubular secretion. Performed By: #### C DP, CMPX, LIP ####[address] , [place] 6926483 Lab Director: Murtaza Arceo MD Glucose [Mass/Vol] 169 mg/dL High 74-99 [facility] Comment on above: Performed By: #### C DP, CMPX, LIP ####[address] [place] [address] Lab Director: Murtaza Arceo MD Potassium [Moles/Vol] 4.5 mmol/L Normal 3.7-5.3 [facility] Comment on above: Result Comment: Spec imen hemolysis has exceeded the interference as defined by Sonal. Value may be falsely increased. Suggest recollection if clinically indicated. Performed By: #### C DP, CMPX, LIP ####[address] [place] [address] Lab Director: Murtaza Arceo MD Protein [Mass/Vol] 6.6 g/dL Normal 6.6-8.7 [facility] Comment on above: Performed By: #### C DP, CMPX, LIP ####[address] [place] [address] Lab Director: Murtaza Arceo MD Sodium [Moles/Vol] 142 mmol/L Normal 136-145 [facility] Comment on above: Performed By: #### C DP, CMPX, LIP ####[facility] , [place] 4221683 Lab Director: Murtaza Arceo MD Urea nitrogen [Mass/Vol] 19 mg/dL Normal 6-20 [facility] Comment on above: Performed By: #### C DP, CMPX, LIP ####[facility] [place] [address] lab Director: Murtaza Arceo MD Comprehensive Metabolic Pane l w/ Reflex to MGon 11-05-2024 Albumin [Mass/Vol] 4.0 g/dL 3.5 - 5.2 g/dL [facility] Albumin/Globulin [Mass ratio] 1.5 {ratio} 1.0 - 2.5 [facility] ALP [Catalytic activity/Vol] 88 U/L 35 - 104 U/L [facility] ALT [Catalytic activity/Vol] 23 U/L 10 - 35 U/L [facility] Anion gap [Moles/Vol] 9 mmol/L 9 - 16 mmol/L [facility] AST [Catalytic activity/Vol] 23 U/L 10 - 35 U/L [facility] Bilirubin [Mass/Vol] 0.4 mg/dL 0.00 - 1.20 mg/dL [facility] Calcium [Mass/Vol] 9.1 mg/dL 8.6 - 10. 4 mg/dL [facility] Chloride [Moles/Vol] 106 mmol/L 98 - 10 7 mmol/L [facility] CO2 [Moles/Vol] 27 mmol/L 20 - 31 mmol/L [facility] Creatinine [Mass/Vol] 0.8 mg/dL 0.50 - 0.90 mg/dL [facility] Est, Glom Filt Rate - PINF [facility] Comment on above: These results are not [...] that affects renal tubular secretion. Glucose [Mass/Vol] 169 mg/dL High 74 - 99 mg/dL [facility] Potassium [Moles/Vol] 4.5 mmol/L 3.7 - 5.3 mmol/L [facility] Comment on above: Specimen hemolysis h as exceeded the interference as defined by Sonal. Value may be falsely increased. Suggest recollection if clinically indicated. Protein [Mass/Vol] 6.6 g/dL 6.6 - 8.7 g/dL [facility] Sodium [Moles/Vol] 142 mmol/L 136 - 145 mmol/L [facility] Urea nitrogen [Mass/Vol] 19 mg/dL 6 - 20 mg/dL [facility] Urea nitrogen/Creatinine [Mass ratio] 24 mg/mg High 9 - 20 [facility] Glucose, Whole Bloodon 11-05 Glucose [Mass/Vol] 114 mg/dL High 74 - 100 mg/dL [facility] Interpretation and review of laboratory results Abnormal [facility] Glucose [Mass/Vol] 114 mg/dL High 74-100 [facility] Glucose [Mass/Vol] 175 mg/dL High 74 - 100 mg/dL [facility] Interpretation and review of laboratory results Abnormal [facility] Glucose [Mass/Vol] 175 mg/dL High 74-100 [facility] Glucose [Mass/Vol] 189 mg/dL High 74 - 100 mg/dL [facility] Interpretation and review of laboratory results Abnormal [facility] Glucose [Mass/Vol] 189 mg/dL High 74-100 [facility] Glucose [Mass/Vol] 157 mg/dL High 74 - 100 mg/dL [facility] Interpretation and review of laboratory results Abnormal [facility] Glucose [Mass/Vol] 157 mg/dL High 74-100 [facility] Lipaseon 11-05-2024 Lipase [Catalytic activity/Vol] 179 U/L High 13 - 60 U/L [facility] Lipase [Catalytic activity/Vol] 179 U/L High 13-60 [facility] Comment on above: Performed By: #### C DP, CMPX, LIP ####[facility] [place] [address] lab Director: Murtaza Arceo MD PT CBC WITH DIFFon 025 Basophils/100 WBC (Bld) 0 % 0 - 2 % [facility] Eosinophils/100 WBC (Bld) 1 % 1 - 4 % [facility] Erythrocyte distribution width (RBC) [Ratio] 14.1 % 11.8 - 14.4 % [facility] Hematocrit (Bld) [Volume fraction] 43 % 36.3 - 47.1 % [facility] Hemoglobin (Bld) [Mass/Vol] 14.1 g/dL 11.9 - 15.1 g/dL [facility] Immature granulocytes/100 WBC (Bld) 0 % 0 [facility] Interpretation and review of laboratory results Abnormal [facility] Lymphocytes/100 WBC (Bld) 33 % 24 - 43 % [facility] MCH (RBC) [Entitic mass] 28.9 pg 25.2 - 33.5 pg [facility] MCHC (RBC) [Mass/Vol] 32.8 g/dL 28.4 - 34.8 g/dL [facility] MCV (RBC) [Entitic vol] 88.1 fL 82.6 - 102.9 [facility]L [facility] EOSINOPHIL 0.14 [facility] LYMPH 4.03 [facility] MONOCYTE 0.77 [facility] ABS.IMM.GRANULOCYTE 0.04 [facility] ABS.NEUTROPHIL (SEG) 7.13 [facility] NRBC AUTOMATED 0 0.0 per 100 WBC [facility] PLATELET COUNT 249 [facility]2 [facility] Monocytes/100 WBC (Bld) 6 % 3 - 12 % [facility] Platelet mean volume (Bld) [Entitic vol] 9.8 fL 8.1 - 13.5 fL [facility] RBC (Bld) [#/Vol] 4.88 10*6/uL 3.95 - 5.1 1 m/uL [facility] Segmented neutrophils/100 WBC (Bld) 60 % 36 - 65 % [facility] Original Ordering Provider: COLTEN SINGH [facility] No Panel Informationon 11-05 Interpretation and review of laboratory results Abnormal [facility] Basic Metabolic Panelon 10-24 Anion gap [Moles/Vol] 12 mmol/L 9 - 16 mmol/L [facility] Calcium [Mass/Vol] 9.7 mg/dL 8.6 - 10. 4 mg/dL [facility] Chloride [Moles/Vol] 102 mmol/L 98 - 10 7 mmol/L [facility] CO2 [Moles/Vol] 24 mmol/L 20 - 31 mmol/L [facility] Creatinine [Mass/Vol] 0.8 mg/dL 0.50 - 0.90 mg/dL [facility] Est, Amarilis Montejot Rate - PINF [facility] Comment on above: These results are not [...] that affects renal tubular secretion. Glucose [Mass/Vol] 224 mg/dL High 74 - 99 mg/dL [facility] Interpretation and review of laboratory results Abnormal [facility] Potassium [Moles/Vol] 3.9 mmol/L 3.7 - 5.3 mmol/L [facility] Sodium [Moles/Vol] 138 mmol/L 136 - 145 mmol/L [facility] Urea nitrogen [Mass/Vol] 18 mg/dL 6 - 20 mg/dL [facility] Urea nitrogen/Creatinine [Mass ratio] 23 mg/mg High 9 - 20 [facility] Basic Metabolic Profon 11-04 Anion gap [Moles/Vol] 12 mmol/L Normal 9-16 [facility] Comment on above: Performed By: #### C DP, LIVP, BMP, LIP ####[facility] [place] [address] lab Director: Murtaza Arceo MD BUN/CRE Ratio 23 High 9-20 [facility] Comment on above: Performed By: #### C DP, LIVP, BMP, LIP ####[address] [place] [address] Lab Director: Murtaza Arceo MD Calcium [Mass/Vol] 9.7 mg/dL Normal 8.6-10.4 [facility] Comment on above: Performed By: #### C DP, LIVP, BMP, LIP ####[address] , [place] 6753783 Lab Director: Murtaza Arceo MD Chloride [Moles/Vol] 102 mmol/L Normal 98-107 [facility] Comment on above: Performed By: #### C DP, LIVP, BMP, LIP ####[address] [place] [address] lab Director: Murtaza Arceo MD CO2 [Moles/Vol] 24 mmol/L Normal 20-31 [facility] Comment on above: Performed By: #### C DP, LIVP, BMP, LIP ####[address] , [place] 4410383 Lab Director: Murtaza Arceo MD Creatinine [Mass/Vol] 0.8 mg/dL Normal 0.50-0.90 [facility] Comment on above: Performed By: #### C DP, LIVP, BMP, LIP ####[address] , [place] 9972883 Lab Director: Murtaza Arceo MD GFR/1.73 sq M.predicted among non-blacks MDRD (S/P/Bld) [Vol rate/Area] mL/min/{1.73_m2} Normal >60 [facility] Comment on above: Result Comment: Thes [...] tubular secretion. Performed By: #### C DP, LIVP, BMP, LIP ####[address] [place], [place] 53[address]83 Lab Director: Murtaza Arceo MD Glucose [Mass/Vol] 224 mg/dL High 74-99 [facility] Comment on above: Performed By: #### C DP, LIVP, BMP, LIP ####[address] [place] [address] Lab Director: Murtaza Arceo MD Potassium [Moles/Vol] 3.9 mmol/L Normal 3.7-5.3 [facility] Comment on above: Performed By: #### C DP, LIVP, BMP, LIP ####[address] [place], [place] 2075483 Lab Director: Murtaza Arceo MD Sodium [Moles/Vol] 138 mmol/L Normal 136-145 [facility] Comment on above: Performed By: #### C DP, LIVP, BMP, LIP ####[address] [place], [place] 734[address]83 Lab Director: Murtaza Arceo MD Urea nitrogen [Mass/Vol] 18 mg/dL Normal 6-20 [facility] Comment on above: Performed By: #### C DP, LIVP, BMP, LIP ####[address] , [place] 3903083 Lab Director: Murtaza Arceo MD CBC with Auto Differentialon 11-04-2024 Basophils (Bld) [#/Vol] 0.06 10*3/uL [facility] Basophils/100 WBC (Bld) 1 % 0 - 2 % [facility] Eosinophils (Bld) [#/Vol] 0.15 10*3/uL [facility] Eosinophils/100 WBC (Bld) 1 % 1 - 4 % [facility] Erythrocyte distribution width (RBC) [Ratio] 13.9 % 11.8 - 14.4 % [facility] Hematocrit (Bld) [Volume fraction] 44.6 % 36.3 - 47.1 % [facility] Hemoglobin (Bld) [Mass/Vol] 15.1 g/dL 11.9 - 15.1 g/dL [facility] Immature granulocytes (Bld) [#/Vol] 0.05 10*3/uL [facility] Immature granulocytes/100 WBC (Bld) 0 % 0 [facility] Interpretation and review of laboratory results Abnormal [facility] Lymphocytes/100 WBC (Bld) 36 % 24 - 43 % [facility] Lymphocytes/100 WBC (Bld) 4.70 % High [facility] MCH (RBC) [Entitic mass] 29.3 pg 25.2 - 33.5 pg [facility] MCHC (RBC) [Mass/Vol] 33.9 g/dL 28.4 - 34.8 g/dL [facility] MCV (RBC) [Entitic vol] 86.6 fL 82.6 - 102.9 fL [facility] Monocytes/100 WBC (Bld) 5 % 3 - 12 % [facility] Monocytes/100 WBC (Bld) 0.64 % [facility] Neutrophils/100 WBC (Bld) 57 % 36 - 65 % [facility] Nucleated RBC/100 WBC (Bld) [Ratio] 0.0 % 0.0 per 100 WBC [facility] Platelet mean volume (Bld) [Entitic vol] 10.1 fL 8.1 - 13.5 fL [facility] Platelets (Bld) [#/Vol] 322 10*3/uL [facility] RBC (Bld) [#/Vol] 5.15 10*6/uL High 3.95 - 5.1 1 m/uL [facility] Segmented neutrophils/100 WBC (Bld) 7.45 % [facility] WBC other (Bld) [#/Vol] 13.1 High [facility] CBC with Diffon 11-04-2024 Abs. Basophil 0.06 k/uL Normal 0.00-0.20 [facility] Comment on above: Performed By: #### C DP, LIVP, BMP, LIP ####[address] [place] [address] Lab Director: Murtaza Arceo MD Abs.Imm.Granulocyte 0.05 k/uL Normal 0.00-0.30 [facility] Comment on above: Performed By: #### C DP, LIVP, BMP, LIP ####[address] [place] [address] Lab Director: Murtaza Arceo MD Abs.Neutrophil (Seg) 7.45 k/uL Normal 1.50-8.10 [facility] Comment on above: Performed By: #### C DP, LIVP, BMP, LIP ####[address] [place] [address] Lab Director: Murtaza Arceo MD Basophils/100 WBC (Bld) 1 % Normal 0-2 [facility] Comment on above: Performed By: #### C DP, LIVP, BMP, LIP ####[address] [place] [address] Lab Director: Murtaza Arceo MD Eosinophils (Bld) [#/Vol] 0.15 10*3/uL Normal 0.00-0.44 [facility] Comment on above: Performed By: #### C DP, LIVP, BMP, LIP ####[address] [place] [address] Lab Director: Murtaza Arceo MD Eosinophils/100 WBC (Bld) 1 % Normal 1-4 [facility] Comment on above: Performed By: #### C DP, LIVP, BMP, LIP ####[address] [place] [address] Lab Director: Murtaza Arceo MD Erythrocyte distribution width (RBC) [Ratio] 13.9 % Normal 11.8-14.4 [facility] Comment on above: Performed By: #### C DP, LIVP, BMP, LIP ####[address] [place] [address] Lab Director: Murtaza Arceo MD Hematocrit (Bld) [Volume fraction] 44.6 % Normal 36.3-47.1 [facility] Comment on above: Performed By: #### C DP, LIVP, BMP, LIP ####[address] , [place] 1856383 Lab Director: Murtaza Arceo MD Hemoglobin (Bld) [Mass/Vol] 15.1 g/dL Normal 11.9-15.1 [facility] Comment on above: Performed By: #### C DP, LIVP, BMP, LIP ####[address] [place] [address] Lab Director: Murtaza Arceo MD Immature granulocytes/100 WBC (Bld) 0 % Normal 0 [facility] Comment on above: Performed By: #### C DP, LIVP, BMP, LIP ####[address] , [place] 3732583 Lab Director: Murtaza Arceo MD Lymphocytes (Bld) [#/Vol] 4.70 10*3/uL High 1.10-3.70 [facility] Comment on above: Performed By: #### C DP, LIVP, BMP, LIP ####[address] , [place] 1542983 Lab Director: Murtaza Arceo MD Lymphocytes/100 WBC (Bld) 36 % Normal 24-43 [facility] Comment on above: Performed By: #### C DP, LIVP, BMP, LIP ####[address] [place] [address] Lab Director: Murtaza Arceo MD MCH (RBC) [Entitic mass] 29.3 pg Normal 25.2-33.5 [facility] Comment on above: Performed By: #### C DP, LIVP, BMP, LIP ####[address] , [place] [phone] Director: Murtaza Arceo MD MCHC (RBC) [Mass/Vol] 33.9 g/dL Normal 28.4-34.8 [facility] Comment on above: Performed By: #### C DP, LIVP, BMP, LIP ####[address] , [place] [phone] Director: Murtaza Arceo MD MCV (RBC) [Entitic vol] 86.6 fL Normal 82.6-102.9 [facility] Comment on above: Performed By: #### C DP, LIVP, BMP, LIP ####[address] [place] [address] Lab Director: Murtaza Arceo MD Monocytes (Bld) [#/Vol] 0.64 10*3/uL Normal 0.10-1.20 [facility] Comment on above: Performed By: #### C DP, LIVP, BMP, LIP ####[address] [place] [address] Lab Director: Murtaza Arceo MD Monocytes/100 WBC (Bld) 5 % Normal 3-12 [facility] Comment on above: Performed By: #### C DP, LIVP, BMP, LIP ####[address] [place] [address] Lab Director: Murtaza Arceo MD Neutrophil (Seg) 57 % Normal 36-65 [facility] Comment on above: Performed By: #### C DP, LIVP, BMP, LIP ####[address] , [place] 3237283 Lab Director: Murtaza Arceo MD NRBC Automated 0.0 per 100 WBC Normal 0.0 [facility] Comment on above: Performed By: #### C DP, LIVP, BMP, LIP ####[address] [place] [address] Lab Director: Murtaza Arceo MD Platelet mean volume (Bld) [Entitic vol] 10.1 fL Normal 8.1-13.5 [facility] Comment on above: Performed By: #### C DP, LIVP, BMP, LIP ####[address] [place] [address] Lab Director: Murtaza Arceo MD Platelets (Bld) [#/Vol] 322 10*3/uL Normal 138-453 [facility] Comment on above: Performed By: #### C DP, LIVP, BMP, LIP ####[address] [place] [address] Lab Director: Murtaza Arceo MD RBC (Bld) [#/Vol] 5.15 10*6/uL High 3.95-5.11 [facility] Comment on above: Performed By: #### C DP, LIVP, BMP, LIP ####[address] [place] [address] Lab Director: Murtaza Arceo MD WBC (Bld) [#/Vol] 13.1 10*3/uL High 3.5-11.3 [facility] Comment on above: Performed By: #### C DP, LIVP, BMP, LIP ####[address] [place] [address] Lab Director: Murtaza Arceo MD CT Abdomen and Pelvis W cont rast Maurilio 11-04-2024 Radiology Study observation (narrative) [facility] Hepatic Function Panelon Albumin [Mass/Vol] 4.1 g/dL 3.5 - 5.2 g/dL [facility] Albumin/Globulin [Mass ratio] 1.3 {ratio} 1.0 - 2.5 [facility] ALP [Catalytic activity/Vol] 96 U/L 35 - 104 U/L [facility] ALT [Catalytic activity/Vol] 27 U/L 10 - 35 U/L [facility] AST [Catalytic activity/Vol] 27 U/L 10 - 35 U/L [facility] Bilirubin [Mass/Vol] 0.5 mg/dL 0.00 - 1.20 mg/dL [facility] Bilirubin.direct [Mass/Vol] mg/dL 0.00 - 0.30 mg/dL [facility] Bilirubin.indirect [Mass/Vol] Can not be calculated 0.0 - 1.0 mg/dL [facility] Protein [Mass/Vol] 7.3 g/dL 6.6 - 8.7 g/dL [facility] Lipaseon 11-04-2024 Interpretation and review of laboratory results Abnormal [facility] Lipase [Catalytic activity/Vol] 573 U/L High 13 - 60 U/L [facility] Lipase [Catalytic activity/Vol] 573 U/L High 13-60 [facility] Comment on above: Performed By: #### C DP, LIVP, BMP, LIP ####[address] , [place] 5322383 Lab Director: Murtaza Arceo MD Liver Profileon 11-04-2024 Albumin [Mass/Vol] 4.1 g/dL Normal 3.5-5.2 [facility] Comment on above: Performed By: #### C DP, LIVP, BMP, LIP ####[facility] , [place] [id number] lab Director: Murtaza Arceo MD Albumin/Glob Ratio 1.3 Normal 1.0-2.5 [facility] Comment on above: Performed By: #### C DP, LIVP, BMP, LIP ####[facility] , [place] [address]83 lab Director: Murtaza Arceo MD Alkaline Phos 96 U/L Normal 35-104 [facility] Comment on above: Performed By: #### C DP, LIVP, BMP, LIP ####[address] [place] [address] Lab Director: Murtaza Arceo MD ALT [Catalytic activity/Vol] 27 U/L Normal 10-35 [facility] Comment on above: Performed By: #### C DP, LIVP, BMP, LIP ####[address] [place] [address] Lab Director: Murtaza Arceo MD AST [Catalytic activity/Vol] 27 U/L Normal 10-35 [facility] Comment on above: Performed By: #### C DP, LIVP, BMP, LIP ####[address] , [place] [id number] lab Director: Murtaza Arceo MD Bilirubin [Mass/Vol] 0.5 mg/dL Normal 0.00-1.20 [facility] Comment on above: Performed By: #### C DP, LIVP, BMP, LIP ####[address] [place] [address] Lab Director: Murtaza Arceo MD Bilirubin, Indirect Can not be calculated Normal 0.0-1 .0 [facility] Comment on above: Performed By: #### C DP, LIVP, BMP, LIP ####[address] [place] [address] Lab Director: Murtaza Arceo MD Bilirubin.indirect [Mass/Vol] mg/dL Normal 0.00-0.30 [facility] Comment on above: Performed By: #### C DP, LIVP, BMP, LIP ####[address] , [place] [address]83 Lab Director: Murtaza Arceo MD Protein [Mass/Vol] 7.3 g/dL Normal 6.6-8.7 [facility] Comment on above: Performed By: #### C DP, LIVP, BMP, LIP ####[facility] [place] [address] lab Director: Murtaza Arceo MD Microscopic Urinalysison Bacteria LM Ql (Urine sed) 2+ Abnormal None [facility] Epithelial cells LM.HPF (Urine sed) [#/Area] 2 TO 5 [facility] Interpretation and review of laboratory results Abnormal [facility] RBC LM.HPF (Urine sed) [#/Area] 0 TO 2 [facility] WBC LM.HPF (Urine sed) [#/Area] 2 TO 5 [facility] No Panel Informationon 11-04 [facility] Urinalysison 11-04-2024 Bilirubin Ql (U) Negative NEGATIVE [facility] Clarity (U) Clear Clear [facility] Color (U) Yellow Yellow [facility] Glucose Test strip (U) [Mass/Vol] 3+ Abnormal NEGATIVE mg/dL [facility] Hemoglobin Auto test strip Ql (U) Negative NEGATIVE [facility] Interpretation and review of laboratory results Abnormal [facility] Ketones (U) [Mass/Vol] Negative NEGAT SIMA mg/dL [facility] Leukocyte esterase Test strip Ql (U) Negative NEGATIVE [facility] Nitrite Ql (U) Negative NEGATIVE [facility] pH (U) 6.0 [pH] 5.0 - 9.0 [facility] Protein (U) [Mass/Vol] Negative NEGAT SIMA mg/dL [facility] Specific gravity (U) [Rel density] High 1.010 - 1.020 [facility] Urobilinogen Qn (U) Normal 0.0 - 1. 0 EU/dL [facility] Urinalysis, Routineon 2024 Bilirubin, SemiQt,Ur Negative Normal NEG [facility] Comment on above: Performed By: #### U A, UMICAO ####[facility] [place] [address] Lab Director: Murtaza Arceo MD Blood, Urine Negative Normal NEG [facility] Comment on above: Performed By: #### U A, UMICAO ####[address] [place] [address] Lab Director: Murtaza Arceo MD Clarity (U) Clear Normal CLEAR [facility] Comment on above: Performed By: #### U A, UMICAO ####[address] [place] [address] Lab Director: Murtaza Arceo MD Color (U) Yellow Normal YEL [facility] Comment on above: Performed By: #### U A, UMICAO ####[address] [place] [address] Lab Director: Murtaza Arceo MD Glucose Ql (U) 3+ mg/dL Abnormal NEG [facility] Comment on above: Performed By: #### U A, UMICAO ####[address] [place] [address] Lab Director: Murtaza Arceo MD Ketones Ql (U) Negative Normal NEG [facility] Comment on above: Performed By: #### U A, UMICAO ####[address] [place] [address] Lab Director: Murtaza Arceo MD Leukocyte esterase Test strip Ql (U) Negative Normal NEG [facility] Comment on above: Performed By: #### U A, UMICAO ####[address] [place] [address] Lab Director: Murtaza Arceo MD Nitrite,Ur Negative Normal [facility] Comment on above: Performed By: #### U A, UMICAO ####[address] [place] [address] Lab Director: Murtaza Arceo MD PH,Ur 6.0 Normal 5.0-9.0 [facility] Comment on above: Performed By: #### U A, UMICAO ####[address] [place] [address] Lab Director: Murtaza Arceo MD Protein Ql (U) Negative Normal NEG [facility] Comment on above: Performed By: #### U A UMICAO ####[address] , [place] 172[address]83 lab Director: Murtaza Arceo MD Spec. [place],Ur >1.030 High 1.010-1.020 [facility] Comment on above: Performed By: #### U ACHEYICAO ####[address] , [place] 5773183 Lab Director: Murtaza Arceo MD Urobilinogen,Ur Normal Normal 0.0-1.0 [facility] Comment on above: Performed By: #### U ACINDYO ####[address] , [place] [id number] Lab Director: Murtaza Arceo MD Urinalysis,Microon 5 Bacteria 2+ Abnormal NONE [facility] Comment on above: Performed By: #### U ACHEYICAO ####[address] [place] [address] Lab Director: Murtaza Arceo MD Epithelial cells LM Ql (Urine sed) 2 TO 5 Normal 0-25 [facility] Comment on above: Performed By: #### U A UMICAO ####[address] , [place] 111[address] Lab Director: Murtaza Arceo MD Urine RBC's 0 TO 2 Normal 0-2 [facility] Comment on above: Performed By: #### U A UMICAO ####[facility] , [place] [id number] Lab Director: Murtaza Arceo MD Urine WBC's 2 TO 5 Normal 0-5 [facility] Comment on above: Performed By: #### U A, EVELYN ####[facility] [place] [address] lab Director: Murtaza Arceo MD CBC auto differentialon 09-24 Basophils (Bld) [#/Vol] 0.04 10*3/uL [facility] Basophils/100 WBC (Bld) 1 % 0 - 2 % [facility] Eosinophils (Bld) [#/Vol] 0.13 10*3/uL [facility] Eosinophils/100 WBC (Bld) 2 % 1 - 4 % [facility] Erythrocyte distribution width (RBC) [Ratio] 13.7 % 11.8 - 14.4 % [facility] Hematocrit (Bld) [Volume fraction] 43.2 % 36.3 - 47.1 % [facility] Hemoglobin (Bld) [Mass/Vol] 14.1 g/dL 11.9 - 15.1 g/dL [facility] Immature granulocytes (Bld) [#/Vol] 0.04 10*3/uL [facility] Immature granulocytes/100 WBC (Bld) 1 % High 0 [facility] Interpretation and review of laboratory results Abnormal [facility] Lymphocytes/100 WBC (Bld) 42 % 24 - 43 % [facility] Lymphocytes/100 WBC (Bld) 3.33 % [facility] MCH (RBC) [Entitic mass] 28.4 pg 25.2 - 33.5 pg [facility] MCHC (RBC) [Mass/Vol] 32.6 g/dL 28.4 - 34.8 g/dL [facility] MCV (RBC) [Entitic vol] 86.9 fL 82.6 - 102.9 fL [facility] Monocytes/100 WBC (Bld) 6 % 3 - 12 % [facility] Monocytes/100 WBC (Bld) 0.48 % [facility] Neutrophils/100 WBC (Bld) 49 % 36 - 65 % [facility] Nucleated RBC/100 WBC (Bld) [Ratio] 0.0 % 0.0 per 100 WBC [facility] Platelet mean volume (Bld) [Entitic vol] 10.3 fL 8.1 - 13.5 fL [facility] Platelets (Bld) [#/Vol] 256 10*3/uL [facility] RBC (Bld) [#/Vol] 4.97 10*6/uL 3.95 - 5.1 1 m/uL [facility] Segmented neutrophils/100 WBC (Bld) 3.83 % [facility] WBC other (Bld) [#/Vol] 7.9 [facility] CBC with Diffon 10-21-2024 Abs. Basophil 0.04 k/uL Normal 0.00-0.20 [facility] Comment on above: Performed By: #### C MPX, LIP, CDP ####[address] [place] [address] Lab Director: Murtaza Arceo MD Abs.Imm.Granulocyte 0.04 k/uL Normal 0.00-0.30 [facility] Comment on above: Performed By: #### C MPX, LIP, CDP ####[address] [place] [address] Lab Director: Murtaza Arceo MD Abs.Neutrophil (Seg) 3.83 k/uL Normal 1.50-8.10 [facility] Comment on above: Performed By: #### C MPX, LIP, CDP ####[address] [place] [address] Lab Director: Murtaza Arceo MD Basophils/100 WBC (Bld) 1 % Normal 0-2 [facility] Comment on above: Performed By: #### C MPX, LIP, CDP ####[address] [place] [address]83 Lab Director: Murtaza Arceo MD Eosinophils (Bld) [#/Vol] 0.13 10*3/uL Normal 0.00-0.44 [facility] Comment on above: Performed By: #### C MPX, LIP, CDP ####[address] [place] [address] Lab Director: Murtaza Arceo MD Eosinophils/100 WBC (Bld) 2 % Normal 1-4 [facility] Comment on above: Performed By: #### C MPX, LIP, CDP ####[address] [place] [address] Lab Director: Murtaza Arceo MD Erythrocyte distribution width (RBC) [Ratio] 13.7 % Normal 11.8-14.4 [facility] Comment on above: Performed By: #### C MPX, LIP, CDP ####[address] , [id number] Lab Director: Murtaza Arceo MD Hematocrit (Bld) [Volume fraction] 43.2 % Normal 36.3-47.1 [facility] Comment on above: Performed By: #### C MPX, LIP, CDP ####[address] [place] [address] Lab Director: Murtaza Arceo MD Hemoglobin (Bld) [Mass/Vol] 14.1 g/dL Normal 11.9-15.1 [facility] Comment on above: Performed By: #### C MPX, LIP, CDP ####[address] [place] [address] Lab Director: Murtaza Arceo MD Immature granulocytes/100 WBC (Bld) 1 % High 0 [facility] Comment on above: Performed By: #### C MPX, LIP, CDP ####[address] , [place] 1687083 Lab Director: Murtaza Arceo MD Lymphocytes (Bld) [#/Vol] 3.33 10*3/uL Normal 1.10-3.70 [facility] Comment on above: Performed By: #### C MPX, LIP, CDP ####[address] , [place] 6306183 Lab Director: Murtaza Arceo MD Lymphocytes/100 WBC (Bld) 42 % Normal 24-43 [facility] Comment on above: Performed By: #### C MPX, LIP, CDP ####[address] , [place] 7685083 lab Director: Murtaza Arceo MD MCH (RBC) [Entitic mass] 28.4 pg Normal 25.2-33.5 [facility] Comment on above: Performed By: #### C MPX, LIP, CDP ####[address] , [place] 6656983 Lab Director: Murtaza Arceo MD MCHC (RBC) [Mass/Vol] 32.6 g/dL Normal 28.4-34.8 [facility] Comment on above: Performed By: #### C MPX, LIP, CDP ####[address] , [place] 6147683 lab Director: Murtaza Arceo MD MCV (RBC) [Entitic vol] 86.9 fL Normal 82.6-102.9 [facility] Comment on above: Performed By: #### C MPX, LIP, CDP ####[address] , [place] 4125983 Lab Director: Murtaza Arceo MD Monocytes (Bld) [#/Vol] 0.48 10*3/uL Normal 0.10-1.20 [facility] Comment on above: Performed By: #### C MPX, LIP, CDP ####[address] [place] [address] Lab Director: Murtaza Arceo MD Monocytes/100 WBC (Bld) 6 % Normal 3-12 [facility] Comment on above: Performed By: #### C MPX, LIP, CDP ####[address] [place] [address] Lab Director: Murtaza Arceo MD Neutrophil (Seg) 49 % Normal 36-65 [facility] Comment on above: Performed By: #### C MPX, LIP, CDP ####[address] [place] [address] Lab Director: Murtaza Arceo MD NRBC Automated 0.0 per 100 WBC Normal 0.0 [facility] Comment on above: Performed By: #### C MPX, LIP, CDP ####[address] [place] [address] Lab Director: Murtaza Arceo MD Platelet mean volume (Bld) [Entitic vol] 10.3 fL Normal 8.1-13.5 [facility] Comment on above: Performed By: #### C MPX, LIP, CDP ####[address] , [place] [phone] Director: Murtaza Arceo MD Platelets (Bld) [#/Vol] 256 10*3/uL Normal 138-453 [facility] Comment on above: Performed By: #### C MPX, LIP, CDP ####[address] [place] [address] Lab Director: Murtaza Arceo MD RBC (Bld) [#/Vol] 4.97 10*6/uL Normal 3.95-5.11 [facility] Comment on above: Performed By: #### C MPX, LIP, CDP ####[address] [place] [address] Lab Director: Murtaza Arceo MD WBC (Bld) [#/Vol] 7.9 10*3/uL Normal 3.5-11.3 [facility] Comment on above: Performed By: #### C MPX, LIP, CDP ####[address] , [place] 2042983 Lab Director: Murtaza Arceo MD Comp Metabolic Pr/rfx MGon 0 10-21-2024 Albumin [Mass/Vol] 3.9 g/dL Normal 3.5-5.2 [facility] Comment on above: Performed By: #### C MPX, LIP, CDP ####[address] , [place] 6619183 Lab Director: Murtaza Arceo MD Albumin/Glob Ratio 1.4 Normal 1.0-2.5 [facility] Comment on above: Performed By: #### C MPX, LIP, CDP ####[address] , [place] 7629483 Lab Director: Murtaza Arceo MD Alkaline Phos 86 U/L Normal 35-104 [facility] Comment on above: Performed By: #### C MPX, LIP, CDP ####[address] , [place] 98[address]83 Lab Director: Murtaza Arceo MD ALT [Catalytic activity/Vol] 40 U/L High 10-35 [facility] Comment on above: Performed By: #### C MPX, LIP, CDP ####[address] [place] [address] Lab Director: Murtaza Arceo MD Anion gap [Moles/Vol] 9 mmol/L Normal 9-16 [facility] Comment on above: Performed By: #### C MPX, LIP, CDP ####[address] , [place] 7741383 Lab Director: Murtaza Arceo MD AST [Catalytic activity/Vol] 44 U/L High 10-35 [facility] Comment on above: Performed By: #### C MPX, LIP, CDP ####[address] , [place] 2556683 Lab Director: Murtaza Arceo MD Bilirubin [Mass/Vol] 0.5 mg/dL Normal 0.00-1.20 [facility] Comment on above: Performed By: #### C MPX, LIP, CDP ####[address] , [place] 0317283 lab Director: Murtaza Arceo MD BUN/CRE Ratio 11 Normal 9-20 [facility] Comment on above: Performed By: #### C MPX, LIP, CDP ####[address] , [place] 7335383 lab Director: Murtaza Arceo MD Calcium [Mass/Vol] 8.6 mg/dL Normal 8.6-10.4 [facility] Comment on above: Performed By: #### C MPX, LIP, CDP ####[address] , [place] 1500083 lab Director: Murtaza Arceo MD Chloride [Moles/Vol] 106 mmol/L Normal 98-107 [facility] Comment on above: Performed By: #### C MPX, LIP, CDP ####[address] , [place] 1906683 lab Director: Murtaza Arceo MD CO2 [Moles/Vol] 25 mmol/L Normal 20-31 [facility] Comment on above: Performed By: #### C MPX, LIP, CDP ####[address] [place] [address] lab Director: Murtaza Arceo MD Creatinine [Mass/Vol] 0.7 mg/dL Normal 0.50-0.90 [facility] Comment on above: Performed By: #### C MPX, LIP, CDP ####[address] [place] [address] Lab Director: Murtaza Arceo MD GFR/1.73 sq M.predicted among non-blacks MDRD (S/P/Bld) [Vol rate/Area] mL/min/{1.73_m2} Normal >60 [facility] Comment on above: Result Comment: Thes [...] renal tubular secretion. Performed By: #### C MPStone LIP, CDP ####[address] [place] [address] Lab Director: Murtaza Arceo MD Glucose [Mass/Vol] 150 mg/dL High 74-99 [facility] Comment on above: Performed By: #### C CY PERAZA, CDP ####[address] , [place] 084[address]83 Lab Director: Murtaza Arceo MD Potassium [Moles/Vol] 4.2 mmol/L Normal 3.7-5.3 [facility] Comment on above: Performed By: #### C CY PERAZA, CDP ####[address] , [place] 6853883 Lab Director: Murtaza Arceo MD Protein [Mass/Vol] 6.7 g/dL Normal 6.6-8.7 [facility] Comment on above: Performed By: #### C MPX LIP, CDP ####[address] [place] [address] Lab Director: Murtaza Arceo MD Sodium [Moles/Vol] 140 mmol/L Normal 136-145 [facility] Comment on above: Performed By: #### C MPX, LIP, CDP ####[facility] [place] [address] Lab Director: Murtaza Arceo MD Urea nitrogen [Mass/Vol] 8 mg/dL Normal 6-20 [facility] Comment on above: Performed By: #### C MPX, LIP, CDP ####[facility] [place] [address] lab Director: Murtaza Arceo MD Comprehensive Metabolic Pane l w/ Reflex to on 10-21-2024 Albumin [Mass/Vol] 3.9 g/dL 3.5 - 5.2 g/dL [facility] Albumin/Globulin [Mass ratio] 1.4 {ratio} 1.0 - 2.5 [facility] ALP [Catalytic activity/Vol] 86 U/L 35 - 104 U/L [facility] ALT [Catalytic activity/Vol] 40 U/L High 10 - 35 U/L [facility] Anion gap [Moles/Vol] 9 mmol/L 9 - 16 mmol/L [facility] AST [Catalytic activity/Vol] 44 U/L High 10 - 35 U/L [facility] Bilirubin [Mass/Vol] 0.5 mg/dL 0.00 - 1.20 mg/dL [facility] Calcium [Mass/Vol] 8.6 mg/dL 8.6 - 10. 4 mg/dL [facility] Chloride [Moles/Vol] 106 mmol/L 98 - 10 7 mmol/L [facility] CO2 [Moles/Vol] 25 mmol/L 20 - 31 mmol/L [facility] Creatinine [Mass/Vol] 0.7 mg/dL 0.50 - 0.90 mg/dL [facility] Est, Glom Filt Rate - PINF [facility] Comment on above: These results are not [...] that affects renal tubular secretion. Glucose [Mass/Vol] 150 mg/dL High 74 - 99 mg/dL [facility] Potassium [Moles/Vol] 4.2 mmol/L 3.7 - 5.3 mmol/L [facility] Protein [Mass/Vol] 6.7 g/dL 6.6 - 8.7 g/dL [facility] Sodium [Moles/Vol] 140 mmol/L 136 - 145 mmol/L [facility] Urea nitrogen [Mass/Vol] 8 mg/dL 6 - 20 mg/dL [facility] Urea nitrogen/Creatinine [Mass ratio] 11 mg/mg 9 - 20 [facility] Glucose, Whole Bloodon 10-21 Glucose [Mass/Vol] 191 mg/dL High 74 - 100 mg/dL [facility] Interpretation and review of laboratory results Abnormal [facility] Glucose [Mass/Vol] 191 mg/dL High 74-100 [facility] Glucose [Mass/Vol] 156 mg/dL High 74 - 100 mg/dL [facility] Interpretation and review of laboratory results Abnormal [facility] Glucose [Mass/Vol] 156 mg/dL High 74-100 [facility] Lipaseon 10-21-2024 Lipase [Catalytic activity/Vol] 90 U/L High 13 - 60 U/L [facility] Lipase [Catalytic activity/Vol] 90 U/L High 13-60 [facility] Comment on above: Performed By: #### C MPX, LIP, CDP ####[facility] [place] [address] lab Director: Murtaza Arceo MD No Panel Informationon 10-21 Interpretation and review of laboratory results Abnormal [facility] CBC with Auto Differentialon 10-20-2024 Basophils (Bld) [#/Vol] 0.07 10*3/uL [facility] Basophils/100 WBC (Bld) 1 % 0 - 2 % [facility] Eosinophils (Bld) [#/Vol] 0.15 10*3/uL [facility] Eosinophils/100 WBC (Bld) 1 % 1 - 4 % [facility] Erythrocyte distribution width (RBC) [Ratio] 13.9 % 11.8 - 14.4 % [facility] Hematocrit (Bld) [Volume fraction] 44.8 % 36.3 - 47.1 % [facility] Hemoglobin (Bld) [Mass/Vol] 15.2 g/dL High 11.9 - 15.1 g/dL [facility] Immature granulocytes (Bld) [#/Vol] 0.07 10*3/uL [facility] Immature granulocytes/100 WBC (Bld) 1 % High 0 [facility] Interpretation and review of laboratory results Abnormal [facility] Lymphocytes/100 WBC (Bld) 30 % 24 - 43 % [facility] Lymphocytes/100 WBC (Bld) 3.80 % High [facility] MCH (RBC) [Entitic mass] 29.1 pg 25.2 - 33.5 pg [facility] MCHC (RBC) [Mass/Vol] 33.9 g/dL 28.4 - 34.8 g/dL [facility] MCV (RBC) [Entitic vol] 85.7 fL 82.6 - 102.9 fL [facility] Monocytes/100 WBC (Bld) 5 % 3 - 12 % [facility] Monocytes/100 WBC (Bld) 0.58 % [facility] Neutrophils/100 WBC (Bld) 62 % 36 - 65 % [facility] Nucleated RBC/100 WBC (Bld) [Ratio] 0.0 % 0.0 per 100 WBC [facility] Platelet mean volume (Bld) [Entitic vol] 10.3 fL 8.1 - 13.5 fL [facility] Platelets (Bld) [#/Vol] 360 10*3/uL [facility] RBC (Bld) [#/Vol] 5.23 10*6/uL High 3.95 - 5.1 1 m/uL [facility] Segmented neutrophils/100 WBC (Bld) 8.12 % High [facility] WBC other (Bld) [#/Vol] 12.8 High [facility] CBC with Diffon 10-20-2024 Abs. Basophil 0.07 k/uL Normal 0.00-0.20 [facility] Comment on above: Performed By: #### C DP, CP, LIP ####[address] , [place] [address])[phone] Director: Murtaza Arceo MD Abs.Imm.Granulocyte 0.07 k/uL Normal 0.00-0.30 [facility] Comment on above: Performed By: #### C DP, CP, LIP ####[address] [place], [place] [address])[phone] Director: Murtaza Arceo MD Abs.Neutrophil (Seg) 8.12 k/uL High 1.50-8.10 [facility] Comment on above: Performed By: #### C DP, CP, LIP ####[address] [place], [place] [address])[phone] Director: Murtaza Arceo MD Basophils/100 WBC (Bld) 1 % Normal 0-2 [facility] Comment on above: Performed By: #### C DP, CP, LIP ####[address] [place] [address])[phone] Director: Murtaza Arceo MD Eosinophils (Bld) [#/Vol] 0.15 10*3/uL Normal 0.00-0.44 [facility] Comment on above: Performed By: #### C DP, CP, LIP ####[address] [place], [place] [address])[phone] Director: Murtaza Arceo MD Eosinophils/100 WBC (Bld) 1 % Normal 1-4 [facility] Comment on above: Performed By: #### C DP, CP, LIP ####[address] [place] [address] [facility] Director: Murtaza Arceo MD Erythrocyte distribution width (RBC) [Ratio] 13.9 % Normal 11.8-14.4 [facility] Comment on above: Performed By: #### C DP, CP, LIP ####[address] , [id number] Lab Director: Murtaza Arceo MD Hematocrit (Bld) [Volume fraction] 44.8 % Normal 36.3-47.1 [facility] Comment on above: Performed By: #### C DP, CP, LIP ####[address] , [place] [address])[phone] Director: Murtaza Arceo MD Hemoglobin (Bld) [Mass/Vol] 15.2 g/dL High 11.9-15.1 [facility] Comment on above: Performed By: #### C DP, CP, LIP ####[address] , [place] [address] Lab Director: Murtaza Arceo MD Immature granulocytes/100 WBC (Bld) 1 % High 0 [facility] Comment on above: Performed By: #### C DP, CP, LIP ####[address] , [place] [address] Lab Director: Murtaza Arceo MD Lymphocytes (Bld) [#/Vol] 3.80 10*3/uL High 1.10-3.70 [facility] Comment on above: Performed By: #### C DP, CP, LIP ####[address] , [id number] Lab Director: Murtaza Arceo MD Lymphocytes/100 WBC (Bld) 30 % Normal 24-43 [facility] Comment on above: Performed By: #### C DP, CP, LIP ####[address] , [id number] Lab Director: Murtaza Arceo MD MCH (RBC) [Entitic mass] 29.1 pg Normal 25.2-33.5 [facility] Comment on above: Performed By: #### C DP CP, LIP ####[address] , [place] [phone] Director: Murtaza Arceo MD MCHC (RBC) [Mass/Vol] 33.9 g/dL Normal 28.4-34.8 [facility] Comment on above: Performed By: #### C DP, CP, LIP ####[address] , [place] [phone] Director: Murtaza Arceo MD MCV (RBC) [Entitic vol] 85.7 fL Normal 82.6-102.9 [facility] Comment on above: Performed By: #### C VENKAT CP, LIP ####[address] , [place] [phone] Director: Murtaza Arceo MD Monocytes (Bld) [#/Vol] 0.58 10*3/uL Normal 0.10-1.20 [facility] Comment on above: Performed By: #### C VENKAT CP, LIP ####[address] , [place] [phone] Director: Murtaza Arceo MD Monocytes/100 WBC (Bld) 5 % Normal 3-12 [facility] Comment on above: Performed By: #### C DP, CP, LIP ####[address] [place] [address] Lab Director: Murtaza Arceo MD Neutrophil (Seg) 62 % Normal 36-65 [facility] Comment on above: Performed By: #### C DP, CP, LIP ####[address] [place] [address] Lab Director: Murtaza Arceo MD NRBC Automated 0.0 per 100 WBC Normal 0.0 [facility] Comment on above: Performed By: #### C DP, CP, LIP ####[address] [place] [address] Lab Director: Murtaza Arceo MD Platelet mean volume (Bld) [Entitic vol] 10.3 fL Normal 8.1-13.5 [facility] Comment on above: Performed By: #### C DP, CP, LIP ####[address] , [place] [phone] Director: Murtaza Arceo MD Platelets (Bld) [#/Vol] 360 10*3/uL Normal 138-453 [facility] Comment on above: Performed By: #### C DP, CP, LIP ####[address] [place] [address] Lab Director: Murtaza Arceo MD RBC (Bld) [#/Vol] 5.23 10*6/uL High 3.95-5.11 [facility] Comment on above: Performed By: #### C DP, CP, LIP ####[address] [place] [address] Lab Director: Murtaza Arceo MD WBC (Bld) [#/Vol] 12.8 10*3/uL High 3.5-11.3 [facility] Comment on above: Performed By: #### C DP, CP, LIP ####[address] , [place] [phone] Director: Murtaza Arceo MD Comp Metabolic Profon 2024 Albumin [Mass/Vol] 4.5 g/dL Normal 3.5-5.2 [facility] Comment on above: Performed By: #### C DP, CP, LIP ####[address] , [place] 1550983 Lab Director: Murtaza Arceo MD Albumin/Glob Ratio 1.3 Normal 1.0-2.5 [facility] Comment on above: Performed By: #### C DP, CP, LIP ####[address] , [place] 5244383 Lab Director: Murtaza Arceo MD Alkaline Phos 100 U/L Normal 35-104 [facility] Comment on above: Performed By: #### C DP, CP, LIP ####[address] [place] [address] Lab Director: Murtaza Arceo MD ALT [Catalytic activity/Vol] 36 U/L High 10-35 [facility] Comment on above: Performed By: #### C DP, CP, LIP ####[address] , [place] 697[address]83 Lab Director: Murtaza Arceo MD Anion gap [Moles/Vol] 16 mmol/L Normal 9-16 [facility] Comment on above: Performed By: #### C DP CP, LIP ####[address] , [place] 2933883 Lab Director: Murtaza Arceo MD AST [Catalytic activity/Vol] 50 U/L High 10-35 [facility] Comment on above: Result Comment: Spec imen hemolysis has exceeded the interference as defined by Sonal. Value may be falsely increased. Suggest recollection if clinically indicated. Performed By: #### C DP, CP, LIP ####[address] , [place] 0420683 Lab Director: Murtaaz Arceo MD Bilirubin [Mass/Vol] 0.5 mg/dL Normal 0.00-1.20 [facility] Comment on above: Performed By: #### C DP, CP, LIP ####[address] , [place] 2986783 Lab Director: Murtaza Arceo MD BUN/CRE Ratio 13 Normal 9-20 [facility] Comment on above: Performed By: #### C DP, CP, LIP ####[address] , [place] 3317383 Lab Director: Murtaza Arceo MD Calcium [Mass/Vol] 9.6 mg/dL Normal 8.6-10.4 [facility] Comment on above: Performed By: #### C DP, CP, LIP ####[address] [place] [address] Lab Director: Murtaza Arceo MD Chloride [Moles/Vol] 102 mmol/L Normal 98-107 [facility] Comment on above: Performed By: #### C DP, CP, LIP ####[address] , [place] 6215483 Lab Director: Murtaza Arceo MD CO2 [Moles/Vol] 22 mmol/L Normal 20-31 [facility] Comment on above: Performed By: #### C DP, CP, LIP ####[address] [place] [address] Lab Director: Murtaza Arceo MD Creatinine [Mass/Vol] 0.8 mg/dL Normal 0.50-0.90 [facility] Comment on above: Performed By: #### C DP, CP, LIP ####[address] , [id number] Lab Director: Murtaza Arceo MD GFR/1.73 sq M.predicted among non-blacks MDRD (S/P/Bld) [Vol rate/Area] mL/min/{1.73_m2} Normal >60 [facility] Comment on above: Result Comment: Thes [...] tubular secretion. Performed By: #### C DP, CP, LIP ####[address] [place] [address] Lab Director: Murtaza Arceo MD Glucose [Mass/Vol] 208 mg/dL High 74-99 [facility] Comment on above: Performed By: #### C DP, CP, LIP ####[address] [place] [address] Lab Director: Murtaza Arceo MD Potassium [Moles/Vol] 4.4 mmol/L Normal 3.7-5.3 [facility] Comment on above: Result Comment: Spec imen hemolysis has exceeded the interference as defined by Sonal. Value may be falsely increased. Suggest recollection if clinically indicated. Performed By: #### C DP, CP, LIP ####[address] [place] [address] Lab Director: Murtaza Arceo MD Protein [Mass/Vol] 7.9 g/dL Normal 6.6-8.7 [facility] Comment on above: Performed By: #### C DP CP, LIP ####[address] [place] [address] Lab Director: Murtaza Arceo MD Sodium [Moles/Vol] 140 mmol/L Normal 136-145 [facility] Comment on above: Performed By: #### C DP, CP, LIP ####[address] [place] [address] Lab Director: Murtaza Arceo MD Urea nitrogen [Mass/Vol] 10 mg/dL Normal 6-20 [facility] Comment on above: Performed By: #### C DP, CP, LIP ####[address] [place] [address] Lab Director: Murtaza Arceo MD Comprehensive Metabolic Pane [facility] 10-20-2024 Albumin [Mass/Vol] 4.5 g/dL 3.5 - 5.2 g/dL [facility] Albumin/Globulin [Mass ratio] 1.3 {ratio} 1.0 - 2.5 [facility] ALP [Catalytic activity/Vol] 100 U/L 35 - 104 U/L [facility] ALT [Catalytic activity/Vol] 36 U/L High 10 - 35 U/L [facility] Anion gap [Moles/Vol] 16 mmol/L 9 - 16 mmol/L [facility] AST [Catalytic activity/Vol] 50 U/L High 10 - 35 U/L [facility] Comment on above: Specimen hemolysis h as exceeded the interference as defined by Sonal. Value may be falsely increased. Suggest recollection if clinically indicated. Bilirubin [Mass/Vol] 0.5 mg/dL 0.00 - 1.20 mg/dL [facility] Calcium [Mass/Vol] 9.6 mg/dL 8.6 - 10. 4 mg/dL [facility] Chloride [Moles/Vol] 102 mmol/L 98 - 10 7 mmol/L [facility] CO2 [Moles/Vol] 22 mmol/L 20 - 31 mmol/L [facility] Creatinine [Mass/Vol] 0.8 mg/dL 0.50 - 0.90 mg/dL [facility] Est, Glom Filt Rate - PINF [facility] Comment on above: These results are not [...] that affects renal tubular secretion. Glucose [Mass/Vol] 208 mg/dL High 74 - 99 mg/dL [facility] Potassium [Moles/Vol] 4.4 mmol/L 3.7 - 5.3 mmol/L [facility] Comment on above: Specimen hemolysis h as exceeded the interference as defined by Sonal. Value may be falsely increased. Suggest recollection if clinically indicated. Protein [Mass/Vol] 7.9 g/dL 6.6 - 8.7 g/dL [facility] Sodium [Moles/Vol] 140 mmol/L 136 - 145 mmol/L [facility] Urea nitrogen [Mass/Vol] 10 mg/dL 6 - 20 mg/dL [facility] Urea nitrogen/Creatinine [Mass ratio] 13 mg/mg 9 - 20 [facility] Glucose, Whole Bloodon 10-20 Glucose [Mass/Vol] 137 mg/dL High 74 - 100 mg/dL [facility] Interpretation and review of laboratory results Abnormal [facility] Glucose [Mass/Vol] 137 mg/dL High 74-100 [facility] Glucose [Mass/Vol] 117 mg/dL High 74 - 100 mg/dL [facility] Interpretation and review of laboratory results Abnormal [facility] Glucose [Mass/Vol] 117 mg/dL High 74-100 [facility] Lactic Acidon 10-20-2024 Lactate (BldV) [Moles/Vol] 2.2 mmol/L 0.5 - 2.2 mmol/L [facility] Lactate [Moles/Vol] 2.2 mmol/L Normal 0.5-2.2 [facility] Comment on above: Performed By: #### L ACTIC ####[facility] [place] [address] lab Director: Murtaza Arceo MD Interpretation and review of laboratory results Abnormal [facility] Lactate (BldV) [Moles/Vol] 3.3 mmol/L High 0.5 - 2.2 mmol/L [facility] Lactate [Moles/Vol] 3.3 mmol/L High 0.5-2.2 [facility] Comment on above: Performed By: #### L ACTIC ####[facility] [place] [address] lab Director: Murtaza Arceo MD Lipaseon 10-20-2024 Lipase [Catalytic activity/Vol] 238 U/L High 13 - 60 U/L [facility] Lipase [Catalytic activity/Vol] 238 U/L High 13-60 [facility] Comment on above: Performed By: #### C DP, CP, LIP ####[facility] [place] [address] Lab Director: Murtaza Arceo MD No Panel Informationon 10-209 Interpretation and review of laboratory results Abnormal [facility] Urinalysis w/ Microon 2024 Bilirubin, SemiQt,Ur Negative Normal NEG [facility] Comment on above: Performed By: #### U AMIC ####[address] , [place] 3040783 Lab Director: Murtaza Arceo MD Blood, Urine Negative Normal NEG [facility] Comment on above: Performed By: #### U AMIC ####[address] , [id number] lab Director: Murtaza Arceo MD Clarity (U) Clear Normal CLEAR [facility] Comment on above: Performed By: #### U AMIC ####[address] , [place] 3908183 Lab Director: Murtaza Arceo MD Color (U) Yellow Normal YEL [facility] Comment on above: Performed By: #### U AMIC ####[facility] , [place] 8964283 lab Director: Murtaza Arceo MD Epithelial cells LM Ql (Urine sed) 0 TO 2 Normal 0-25 [facility] Comment on above: Performed By: #### U AMIC ####[facility] [place] [address] lab Director: Murtaza Arceo MD Glucose Ql (U) 3+ mg/dL Abnormal NEG [facility] Comment on above: Performed By: #### U AMIC ####[address] [place] [address] Lab Director: Murtaza Arceo MD Ketones Ql (U) Negative Normal NEG [facility] Comment on above: Performed By: #### U AMIC ####[address] [place] [address] Lab Director: Murtaza Arceo MD Leukocyte esterase Test strip Ql (U) Negative Normal NEG [facility] Comment on above: Performed By: #### U AMIC ####[address] [place] [address] Lab Director: Murtaza Arceo MD Nitrite,Ur Negative Normal NEG [facility] Comment on above: Performed By: #### U AMIC ####[address] , [place] 2354883 Lab Director: Murtaza Arceo MD PH,Ur 6.0 Normal 5.0-9.0 [facility] Comment on above: Performed By: #### U AMIC ####[address] [place] [address] Lab Director: Murtaza Arceo MD Protein Ql (U) Negative Normal NEG [facility] Comment on above: Performed By: #### U AMIC ####[address] [place] [address] Lab Director: Murtaza Arceo MD Spec. [place],Ur 1.025 High 1.010-1.020 [facility] Comment on above: Performed By: #### U AMIC ####[address] , [place] 4593983 Lab Director: Murtaza Arceo MD Urine RBC's None Normal 0-2 [facility] Comment on above: Performed By: #### U AMIC ####[address] [place], [place] [address] lab Director: Murtaza Arceo MD Urine WBC's 0 TO 2 Normal 0-5 [facility] Comment on above: Performed By: #### U AMIC ####[facility] , [place] 5547783 lab Director: Murtaza Arceo MD Urobilinogen,Ur Normal Normal 0.0-1.0 [facility] Comment on above: Performed By: #### U AMIC ####[facility] , [place] 4612783 lab Director: Murtaza Arceo MD Urinalysis with Microscopico n 10-20-2024 Bilirubin Ql (U) Negative NEGATIVE [facility] Clarity (U) Clear Clear [facility] Color (U) Yellow Yellow [facility] Epithelial cells LM.HPF (Urine sed) [#/Area] 0 TO 2 [facility] Glucose Test strip (U) [Mass/Vol] 3+ Abnormal NEGATIVE mg/dL [facility] Hemoglobin Auto test strip Ql (U) Negative NEGATIVE [facility] Interpretation and review of laboratory results Abnormal [facility] Ketones (U) [Mass/Vol] Negative NEGAT SIMA mg/dL [facility] Leukocyte esterase Test strip Ql (U) Negative NEGATIVE [facility] Nitrite Ql (U) Negative NEGATIVE [facility] pH (U) 6.0 [pH] 5.0 - 9.0 [facility] Protein (U) [Mass/Vol] Negative NEGAT SIMA mg/dL [facility] RBC LM.HPF (Urine sed) [#/Area] None [facility] Specific gravity (U) [Rel density] 1.025 High 1.010 - 1.020 [facility] Urobilinogen Qn (U) Normal 0.0 - 1. 0 EU/dL [facility] WBC LM.HPF (Urine sed) [#/Area] 0 TO 2 [facility] ED NOTEon 10-17-2024 ED NOTE HNO ID: [id number] Author: HENRRY GAMINO, RN Service: Emergency Medicine Author Type: Registered Nurse Type: ED Notes Filed: 10/17/2024 14:16 Note Text: Pt dc by this nurse. Dc instructions reviewed and pt demonstrated understanding. VS stable. Ambulatory. Normal [facility] ED NOTE HNO ID: [id number] Author: HENRRY GAMINO RN Service: Emergency Medicine Author Type: Registered Nurse Type: ED Notes Filed: 10/17/2024 13:37 Note Text: Pt able to eat cracker without vomiting. Normal [facility] ED PROV NOTEon 10-17-2024 ED PROV NOTE HNO ID: [id number] Author: JON BARRIOS MD Service: Emergency Medicine Author Type: Physician Type: ED Provider Notes Filed: 10/18/2024 16:40 Note Text: ED Provider Note Patient Name: Geal Ruby : 1995 SERVICE DATE: 10/16/24 History Patient presents with: Nausea AND Vomiting: Pt states she has been having n/v for a couple days. She was told she has gastroparesis and says she has been to the hospital over 100 times last year and multiple times this year and they told her to come to [place]. 29-year-old female with past medical history of pancreatitis, PE, right ovarian cyst, diabetes, endometriosis, HTN, factor V Leiden, GERD, anxiety, hiatal hernia, steatosis of liver presenting for nausea and vomiting. Patient states that she has had epigastric pain for months worsening over the last week. Describes it as sharp and intermittent. It is not worse or better with food. He has been taking Compazine, Reglan. She was also previously tried Dulcolax and Gas-X. Describes her pain as 9 out of 10. She has had nausea and vomiting x 50, nonbloody. Last BM was yesterday. Denies trauma to the head, chest pain, shortness of breath. She has a history of pancreatitis and does not drink alcohol. She does state that she uses marijuana 3-4 times per week for the last year. States previously droperidol was tried and this did not work for her. Denies dysuria or hematuria. Patient with history of hysterectomy. Patient with numerous workups for abdominal pain in the past and has seen by GI and diagnosed with gastroparesis. At her most recent ED visit at [facility], told to come to clinic clinic if she has symptoms again. Told that NG tube was possible. Chart review: - multiple ED visits with negative work ups No past medical history on file. No past surgical history on file. No family history on file. Social History Tobacco Use Smoking status: Not on file Smokeless tobacco: Not on file Substance and Sexual Activity Alcohol use: Not on file Drug use: Not on file Sexual activity: Not on file ALLERGIES Not on File Review of Systems Physical Exam Vitals [10/16/24 1801] BP Pulse Temp Temp src Resp SpO2 Weight Height 148/99 (!) 91 36.2 ?C (97.2 ?F) Oral 18 97 % -- -- Physical Exam Constitutional: General: She is not in acute distress. Appearance: She is obese. She is not ill-appearing or toxic-appearing. HENT: Head: Normocephalic and atraumatic. Mouth/Throat: Pharynx: Oropharynx is clear. No posterior oropharyngeal erythema. Cardiovascular: Rate and Rhythm: Normal rate and regular rhythm. Heart sounds: Normal heart sounds. Pulmonary: Effort: Pulmonary effort is normal. No respiratory distress. Breath sounds: No wheezing, rhonchi or rales. Abdominal: Palpations: Abdomen is soft. Tenderness: There is abdominal tenderness. There is no guarding. Negative signs include Aquino's sign. Comments: Obese abdomen that is soft, tenderness to palpation to epigastric region Musculoskeletal: Cervical back: Normal range of motion and neck supple. Right lower leg: No edema. Left lower leg: No edema. Neurological: Mental Status: She is alert. Psychiatric: Mood and Affect: Mood normal. Behavior: Behavior normal. Diagnostic Testing ED Labs Ordered and Reviewed COMPLETE BLOOD COUNT AND DIFFERENTIAL - Abnormal; Notable for the following components: Result Value Ref Range WBC 14.49 (*) 3.70 - 11.00 k/uL RBC 5.25 (*) 3.90 - 5.20 m/uL Abs Neut 9.56 (*) 1.45 - 7.50 k/uL Abs Lymph 4.13 (*) 1.00 - 4.00 k/uL All other components within normal limits Narrative: This is an appended report. These results have been appended to a previously verified report. COMPREHENSIVE METABOLIC PANEL - Abnormal; Notable for the following components: Glucose 152 (*) 74 - 99 mg/dL All other components within normal limits LIPASE - Normal MAGNESIUM - Normal URINALYSIS (WITH MICROSCOPIC) WITH CULTURE IF INDICATED HCG, QUALITATIVE, URINE Procedures ED Course / Clinical Impression ED Course as of 10/17/24 1409 Jose Grubbs's Documentation Sat Oct 17, 2024 1104 Temp: 36.2 ?C (97.2 ?F) 1104 Pulse: 65 1104 BP: 143/94 1104 Resp: 19 1104 SpO2: 95 % 1104 Complete Blood Count and Differential(!): WBC 14.49(!) RBC 5.25(!) Hemoglobin 15.0 Hematocrit 45.4 MCV 86.5 MCH 28.6 MCHC 33.0 RDW-CV 13.6 Platelet Count 331 MPV 10.0 Neut% 66.0 Abs Neut (ANC) 9.56(!) Lymph% 28.5 Abs Lymph 4.13(!) [place]% 4.0 Abs [place] 0.58 Eosin% 0.8 Abs Eosin 0.12 Baso% 0.4 Abs Baso 0.06 Immature Gran % 0.3 IMMATURE GRANS (ABS) 0.04 NRBC 0.0 Absolute nRBC <0.01 Red Cell Morph Reviewed: unremarkable DTYPE Auto Leukocytosis, no new anemia 1105 Lipase: Lipase 56 No concern for pancreatitis 1105 Magnesium: Magnesium 1.9 Mag wnl 1105 Comprehensive Metabolic Panel(!): Protein, Total 7.5 Albumin 4 (more content not included)... Normal [facility] HCG Preg Ur Qlon 10-17-2024 HCG ( test) Ql (U) Negative Normal Negative [facility] Comment on above: Order Comment: Speci men Type: URINE SPECIMENOrdering Facility: [facility] Address: [address] [place] [address] Result Comment: This test is intended to aid in the early detection of . Very dilute urine samples, as indicated by a low specific gravity, may not contain c s s representative levels of hCG. This test detects intact hCG only. This test does not reliably detect hCG degradation products, including free-beta subunit and beta-core fragment. Therefore, this test may show reduced reactivity in urine after 8 weeks gestation. A number of conditions other than , including trophoblastic disease and certain non-trophoblastic neoplasms cause elevated levels of hCG. As with any assay employing mouse antibodies, the possibility exists for interference by human anti-mouse antibodies (HAMA) in the specimen. The test provides a presumptive diagnosis for . Performed By: #### 2 106-3 ####[facility] [id number] [place] [address] [place] Urinalysis complete panel (U )on 10-17-2024 Bacteria LM.HPF (Urine sed) [#/Area] Negative Normal Negative [facility] Comment on above: Order Comment: Speci men Type: URINE SPECIMENOrdering Facility: [facility] Address: [address] [place] [address] Performed By: #### 2 4356-8 ####[facility] [id number] [place] [address] [place] Bilirubin Ql (U) Negative Normal Negative [facility] Comment on above: Order Comment: Speci men Type: URINE SPECIMENOrdering Facility: [facility] Address: [address] [place] [address] Performed By: #### 2 4356-8 ####[facility] [id number] [place] [address] [place] Clarity (Unsp spec) Clear Normal Clear [facility] Comment on above: Order Comment: Speci men Type: URINE SPECIMENOrdering Facility: [facility] Address: [address] [place] [address] Performed By: #### 2 4356-8 ####[facility] [id number] [address] [place] Color (U) Yellow Normal Yellow [facility] Comment on above: Order Comment: Speci men Type: URINE SPECIMENOrdering Facility: [facility] Address: [address] [place] [address] Performed By: #### 2 4356-8 ####[facility] [id number] [place] [address] [place] Epithelial cells LM.HPF (Urine sed) [#/Area] None Seen Normal [facility] Comment on above: Order Comment: Speci men Type: URINE SPECIMENOrdering Facility: [facility] Address: [address] [place] [address] Performed By: #### 2 4356-8 ####[facility] [id number] [place] [address] [place] Glucose Test strip (U) [Mass/Vol] Negative Normal Negative [facility] Comment on above: Order Comment: Speci men Type: URINE SPECIMENOrdering Facility: [facility] Address: [address] [place] [address] Performed By: #### 2 4356-8 ####[facility] [id number] [place] [address] [place] Hemoglobin Ql (U) Negative Normal Negative [facility] Comment on above: Order Comment: Speci men Type: URINE SPECIMENOrdering Facility: [facility] Address: [address] [place] [address] Performed By: #### 2 4356-8 ####[facility] [id number] [place] [address] [place] Hyaline casts (Urine sed) [#/Area] 0 /[LPF] Normal 0 /LPF [facility] Comment on above: Order Comment: Speci men Type: URINE SPECIMENOrdering Facility: [facility] Address: [address] [place] [address] Performed By: #### 2 4356-8 ####[facility] [id number] [place] [address] [place] Ketones Ql (U) 1+ Abnormal Negative [facility] Comment on above: Order Comment: Speci men Type: URINE SPECIMENOrdering Facility: [facility] Address: [address] [place] [address] Performed By: #### 2 4356-8 ####[facility] [id number] [place] [address] [place] Leukocyte esterase Test strip Ql (U) Negative Normal Negative [facility] Comment on above: Order Comment: Speci men Type: URINE SPECIMENOrdering Facility: [facility] Address: [address] [place] [address] Performed By: #### 2 4356-8 ####[facility] [id number] [place] [address] [place] Nitrite Ql (U) Negative Normal Negative [facility] Comment on above: Order Comment: Speci men Type: URINE SPECIMENOrdering Facility: [facility] Address: [address] [place] [address] Performed By: #### 2 4356-8 ####[facility] [id number] [place] [address] [place] pH (U) 6.5 [pH] Normal <8.5 [facility] Comment on above: Order Comment: Speci men Type: URINE SPECIMENOrdering Facility: [facility] Address: [address] [place] [address] Performed By: #### 2 4356-8 ####[facility] [id number] [place] [address] [place] Protein (U) [Mass/Vol] Negative Normal Negative [facility] Comment on above: Order Comment: Speci men Type: URINE SPECIMENOrdering Facility: [facility] Address: [address] [place] [address] Performed By: #### 2 4356-8 ####[facility] [id number] [place] [address] [place] RBC LM.HPF (Urine sed) [#/Area] 0-2 /HPF Normal 0-2 /HPF [facility] Comment on above: Order Comment: Speci men Type: URINE SPECIMENOrdering Facility: [facility] Address: [address] [place] [address] Performed By: #### 2 4356-8 ####[facility] [id number] [place] [address] [place] Specific gravity (U) [Rel density] 1.011 Normal 1.005-1.030 [facility] Comment on above: Order Comment: Speci men Type: URINE SPECIMENOrdering Facility: [facility] Address: [address] [place] [address] Performed By: #### 2 4356-8 ####[facility] [id number] [place] [address] [place] Urobilinogen Ql (U) 0.2 EU/dL Normal 0.2-1.0 EU/dL [facility] Comment on above: Order Comment: Speci men Type: URINE SPECIMENOrdering Facility: [facility] Address: [address] [place] [address] Performed By: #### 2 4356-8 ####[facility] [id number] [place] [address] [place] WBC LM.HPF (Urine sed) [#/Area] 0-5 /HPF Normal 0-5 /HPF [facility] Comment on above: Order Comment: Speci men Type: URINE SPECIMENOrdering Facility: [facility] Address: [address] [place] [address] Performed By: #### 2 4356-8 ####[facility] [id number] [place] [address] [place] CBC W Auto Differential pane l (Bld)on 10-16-2024 Basophils (Bld) [#/Vol] 0.06 10*3/uL Normal <0.11 [facility] Comment on above: Order Comment: Speci men Type: BLOOD SPECIMENOrdering Facility: [facility] Address: [address] [place] [address] Performed By: #### 5 7021-8 ####[facility]CL[facility] [id number] [place] [address] [place] Basophils/100 WBC (Bld) 0.4 % Normal [facility] Comment on above: Order Comment: Speci men Type: BLOOD SPECIMENOrdering Facility: [facility] Address: [address] [place] [address] Performed By: #### 5 7021-8 ####[facility]CL[facility] [id number] [place] [address] [place] Differential cell count method Nom (Bld) Auto Normal [facility] Comment on above: Order Comment: Speci men Type: BLOOD SPECIMENOrdering Facility: [facility] Address: [address] [place] [address] Performed By: #### 5 7021-8 ####[facility] [id number] [place] [address] [place] Eosinophils (Bld) [#/Vol] 0.12 10*3/uL Normal <0.46 [facility] Comment on above: Order Comment: Speci men Type: BLOOD SPECIMENOrdering Facility: [facility] Address: [address] [place] [address] Performed By: #### 5 7021-8 ####[facility] [id number] [place] [address] [place] Eosinophils/100 WBC (Bld) 0.8 % Normal [facility] Comment on above: Order Comment: Speci men Type: BLOOD SPECIMENOrdering Facility: [facility] Address: [address] [place] [address] Performed By: #### 5 7021-8 ####[facility] [id number] [place] [address] [place] Erythrocyte distribution width (RBC) [Ratio] 13.6 % Normal 11.5-15.0 [facility] Comment on above: Order Comment: Speci men Type: BLOOD SPECIMENOrdering Facility: [facility] Address: [address] [place] [address] Performed By: #### 5 7021-8 ####[facility] LABIA [id number] [place] [address] [place] Hematocrit (Bld) [Volume fraction] 45.4 % Normal 36.0-46.0 [facility] Comment on above: Order Comment: Speci men Type: BLOOD SPECIMENOrdering Facility: [facility] Address: [address] [place] [address] Performed By: #### 5 7021-8 ####[facility] LABIA [id number] [place] [address] [place] Hemoglobin (Bld) [Mass/Vol] 15.0 g/dL Normal 11.5-15.5 [facility] Comment on above: Order Comment: Speci men Type: BLOOD SPECIMENOrdering Facility: [facility] Address: [address] [place] [address] Performed By: #### 5 7021-8 ####[facility] LABIA [id number] [place] [address] [place] Immature granulocytes (Bld) [#/Vol] 0.04 10*3/uL Normal <0.10 [facility] Comment on above: Order Comment: Speci men Type: BLOOD SPECIMENOrdering Facility: [facility] Address: [address] [place] [address] Performed By: #### 5 7021-8 ####[facility] LABIA [id number] [place] [address] [place] Immature granulocytes/100 WBC (Bld) 0.3 % Normal [facility] Comment on above: Order Comment: Speci men Type: BLOOD SPECIMENOrdering Facility: [facility] Address: [address] [place] [address] Performed By: #### 5 7021-8 ####[facility]CL[facility] [id number] [place] [address] [place] Lymphocytes (Bld) [#/Vol] 4.13 10*3/uL High 1.00-4.00 [facility] Comment on above: Order Comment: Speci men Type: BLOOD SPECIMENOrdering Facility: [facility] Address: [address] [place] [address] Performed By: #### 5 7021-8 ####[facility] [id number] [place] [address] [place] Lymphocytes/100 WBC (Bld) 28.5 % Normal [facility] Comment on above: Order Comment: Speci men Type: BLOOD SPECIMENOrdering Facility: [facility] Address: [address] [place] [address] Performed By: #### 5 7021-8 ####[facility]CL[facility] [id number] [place] [address] [place] MCH (RBC) [Entitic mass] 28.6 pg Normal 26.0-34.0 [facility] Comment on above: Order Comment: Speci men Type: BLOOD SPECIMENOrdering Facility: [facility] Address: [address] [place] [address] Performed By: #### 5 7021-8 ####[facility]CL[facility] [id number] [place] [address] [place] MCHC (RBC) [Mass/Vol] 33.0 g/dL Normal 30.5-36.0 [facility] Comment on above: Order Comment: Speci men Type: BLOOD SPECIMENOrdering Facility: [facility] Address: [address] [place] [address] Performed By: #### 5 7021-8 ####[facility]CL[facility] [id number] [place] [id number] [place] MCV (RBC) [Entitic vol] 86.5 fL Normal 80.0-100.0 [facility] Comment on above: Order Comment: Speci men Type: BLOOD SPECIMENOrdering Facility: [facility] Address: [address] [place] [address] Performed By: #### 5 7021-8 ####[facility] [id number] [place] [address] [place] Monocytes (Bld) [#/Vol] 0.58 10*3/uL Normal <0.87 [facility] Comment on above: Order Comment: Speci men Type: BLOOD SPECIMENOrdering Facility: [facility] Address: [address] [place] [address] Performed By: #### 5 7021-8 ####[facility]CL[facility] [id number] [place] [address] [place] Monocytes/100 WBC (Bld) 4.0 % Normal [facility] Comment on above: Order Comment: Speci men Type: BLOOD SPECIMENOrdering Facility: [facility] Address: [address] [place] [address] Performed By: #### 5 7021-8 ####[facility]CL[facility] [id number] [place] [address] [place] Neutrophils (Bld) [#/Vol] 9.56 10*3/uL High 1.45-7.50 [facility] Comment on above: Order Comment: Speci men Type: BLOOD SPECIMENOrdering Facility: [facility] Address: [address] [place] [address] Performed By: #### 5 7021-8 ####[facility]CL[facility] [id number] [place] [address] [place] Neutrophils/100 WBC (Bld) 66.0 % Normal [facility] Comment on above: Order Comment: Speci men Type: BLOOD SPECIMENOrdering Facility: [facility] Address: [address] [place] [address] Result Comment: Diff erential confirmed by visual scan of peripheral blood smear slide. Performed By: #### 5 7021-8 ####[facility] LABIA [id number] [place] [address] [place] Nucleated RBC (Bld) [#/Vol] 10*3/uL Normal <0.01 [facility] Comment on above: Order Comment: Speci men Type: BLOOD SPECIMENOrdering Facility: [facility] Address: [address] [place] [address] Performed By: #### 5 7021-8 ####[facility] [id number] [place] [address] [place] Nucleated RBC/100 WBC (Bld) [Ratio] 0.0 /100 WBC Normal [facility] Comment on above: Order Comment: Speci men Type: BLOOD SPECIMENOrdering Facility: [facility] Address: [address] [place] [address] Performed By: #### 5 7021-8 ####[facility] [id number] [place] [address] [place] Platelet mean volume (Bld) [Entitic vol] 10.0 fL Normal 9.0-12.7 [facility] Comment on above: Order Comment: Speci men Type: BLOOD SPECIMENOrdering Facility: [facility] Address: [address] [place] [address] Performed By: #### 5 7021-8 ####[facility] [id number] [place] [address] [place] Platelets (Bld) [#/Vol] 331 10*3/uL Normal 150-400 [facility] Comment on above: Order Comment: Speci men Type: BLOOD SPECIMENOrdering Facility: [facility] Address: [address] [place] [address] Performed By: #### 5 7021-8 ####[facility]CL[facility] [id number] [place] [address] [place] RBC (Bld) [#/Vol] 5.25 10*6/uL High 3.90-5.20 [facility] Comment on above: Order Comment: Speci men Type: BLOOD SPECIMENOrdering Facility: [facility] Address: [address] [place] [address] Performed By: #### 5 7021-8 ####[facility]CL[facility] [id number] [place] [address] [place] RED CELL MORPH Reviewed: unremarkable Normal [facility] Comment on above: Order Comment: Speci men Type: BLOOD SPECIMENOrdering Facility: [facility] Address: [address] [place] [address] Performed By: #### 5 7021-8 ####[facility]CL[facility] [id number] [place] [address] [place] WBC (Bld) [#/Vol] 14.49 10*3/uL High 3.70-11.00 [facility] Comment on above: Order Comment: Speci men Type: BLOOD SPECIMENOrdering Facility: [facility] Address: [address] [place] [address] Performed By: #### 5 7021-8 ####[facility] LABIA [id number] [place] [address] [place] Comprehensive metabolic 2000 panelon 10-16-2024 Albumin [Mass/Vol] 4.4 g/dL Normal 3.9-4.9 [facility] Comment on above: Order Comment: Speci men Type: BLOOD SPECIMENOrdering Facility: [facility] Address: [address] [place] [address] Performed By: #### 2 4323-8, 49941-4, 3040-3 ####[facility]CL[facility] [id number] [address] [address] [place] ALP [Catalytic activity/Vol] 95 U/L Normal 34-123 [facility] Comment on above: Order Comment: Speci men Type: BLOOD SPECIMENOrdering Facility: [facility] Address: [address] [place] [address] Performed By: #### 2 4323-8, 40034-1, 3039-3 ####[facility]CL[facility] [id number] [place] [address] [place] ALT [Catalytic activity/Vol] 36 U/L Normal 7-38 [facility] Comment on above: Order Comment: Speci men Type: BLOOD SPECIMENOrdering Facility: [facility] Address: [address] [place] [address] Performed By: #### 2 4323-8, , 3039-3 ####[facility]CL[facility] [id number] [place] [address] [place] Anion gap [Moles/Vol] 12 mmol/L Normal 8-15 [facility] Comment on above: Order Comment: Speci men Type: BLOOD SPECIMENOrdering Facility: [facility] Address: [address] [place] [address] Performed By: #### 2 4323-8, , 3039-3 ####[facility]CL[facility] [id number] [place] [address] [place] AST [Catalytic activity/Vol] 31 U/L Normal 13-35 [facility] Comment on above: Order Comment: Speci men Type: BLOOD SPECIMENOrdering Facility: [facility] Address: [address] [place] [address] Performed By: #### 2 4323-8, , 3039-3 ####[facility] LABCLIA [id number] [place] [id number] [place] Bilirubin [Mass/Vol] 0.5 mg/dL Normal 0.2-1.3 [facility] Comment on above: Order Comment: Speci men Type: BLOOD SPECIMENOrdering Facility: [facility] Address: [address] [place] [address] Performed By: #### 2 4323-8, , 3 ####[facility]CL[facility] [id number] [facility] [address] [address] [place] Calcium [Mass/Vol] 9.7 mg/dL Normal 8.5-10.2 [facility] Comment on above: Order Comment: Speci men Type: BLOOD SPECIMENOrdering Facility: [facility] Address: [address] [place] [address] Performed By: #### 2 4323-8, , 3 ####[facility]CL[facility] [id number] [place] [address] [place] Chloride [Moles/Vol] 103 mmol/L Normal 98-107 [facility] Comment on above: Order Comment: Speci men Type: BLOOD SPECIMENOrdering Facility: [facility] Address: [address] [place], [place] [address] Performed By: #### 2 4323-8, , 3 ####[facility]CL[facility] [id number] [place] [id number] [place] CO2 [Moles/Vol] 25 mmol/L Normal 22-30 [facility] Comment on above: Order Comment: Speci men Type: BLOOD SPECIMENOrdering Facility: [facility] Address: [address] [place], [place] [address] Performed By: #### 2 4323-8, , 3 ####[facility]CL[facility] [id number] [address] [address] [place] Creatinine [Mass/Vol] 0.67 mg/dL Normal 0.58-0.96 [facility] Comment on above: Order Comment: Speci men Type: BLOOD SPECIMENOrdering Facility: [facility] Address: [address] [place] [address] Performed By: #### 2 4323-8, 72482-9, 3040-3 ####[facility]CL[facility] [id number] [place] [id number] [place] Creatinine and Glomerular filtration rate.predicted panel (S/P/Bld) 121 mL/min/1.73m??? Normal >=60 [facility] Comment on above: Order Comment: Speci men Type: BLOOD SPECIMENOrdering Facility: [facility] Address: [address] [place] [address] Result Comment: Leni mated Glomerular Filtration Rate (eGFR) is calculated using the 2020 CKD-EPI creatinine equation. This equation utilizes serum creatinine, sex, and age as parameters. The creatinine assay has traceable calibration to isotope dilution-mass spectrometry. Refer to KDIGO guidelines for clinical interpretation. In patients with unstable renal function, e.g. those with acute kidney injury, the eGFR may not accurately reflect actual GFR. Performed By: #### 2 4323-8, 90998-7, 3040-3 ####[facility]CL[facility] [id number] [place] [id number] [place] Glucose [Mass/Vol] 152 mg/dL High 74-99 [facility] Comment on above: Order Comment: Speci men Type: BLOOD SPECIMENOrdering Facility: [facility] Address: [address] [place] [address] Result Comment: The [place] Diabetes Association (ADA) provides guidance for cutoff values for fasting glucose and random glucose. The ADA defines fasting as no caloric intake for at least 8 hours. Fasting plasma glucose results between 100 to 125 mg/dL indicate increased risk for diabetes (prediabetes). Fasting plasma glucose results greater than or equal to 126 mg/dL meet the criteria for diagnosis of diabetes. In the absence of unequivocal hyperglycemia, results should be confirmed by repeat testing. In a patient with classic symptoms of hyperglycemia or hyperglycemic crisis, random plasma glucose results greater than or equal to 200 mg/dL meet the criteria for diagnosis of diabetes. Reference: Standards of Medical Care in Diabetes 2016, [place] [employer]. Diabetes Care. 2016.39(Suppl 1). Performed By: #### 2 4323-8, 60148-8, 0-3 ####[facility]CL[facility] [id number] [address] [address] [place] Potassium [Moles/Vol] 4.1 mmol/L Normal 3.7-5.1 [facility] Comment on above: Order Comment: Speci men Type: BLOOD SPECIMENOrdering Facility: [facility] Address: [address] [place] [id number] Performed By: #### 2 4323-8, , 3039-3 ####[facility]CL[facility] [id number] [address] [address] [place] Protein [Mass/Vol] 7.5 g/dL Normal 6.3-8.0 [facility] Comment on above: Order Comment: Speci men Type: BLOOD SPECIMENOrdering Facility: [facility] Address: [address] [place], [place] [address] Performed By: #### 2 4323-8, , 3039-3 ####[facility] LABIA [id number] [address] [address] [place] Sodium [Moles/Vol] 140 mmol/L Normal 136-144 [facility] Comment on above: Order Comment: Speci men Type: BLOOD SPECIMENOrdering Facility: [facility] Address: [address] [place] [address] Performed By: #### 2 4323-8, , 3039-3 ####[facility]CL[facility] [id number] [address] [address] [place] Urea nitrogen [Mass/Vol] 11 mg/dL Normal 7-21 [facility] Comment on above: Order Comment: Speci men Type: BLOOD SPECIMENOrdering Facility: [facility] Address: [address] [place] [address] Performed By: #### 2 4323-8, 27257-5, 3 ####[facility]CL[facility] [id number] [address] [address] [facility] ED Triage Noteon 10-16-2024 ED Triage Note HNO ID: [id number] Author: MYA BURDICK MD Service: Critical Care Author Type: Physician Type: ED Triage Notes Filed: 10/16/2024 18:02 Note Text: ED TRIAGE PROVIDER NOTE Patient Name: Gael Ruby Service Date: 10/16/24 BRIEF HPI: This is a 29 year old female who presents to the ED with: gastroparesis presenting with nausea and vomiting for a couple of days. BRIEF EXAM: NAD Awake and Alert Non labored breathing INITIAL WORKUP AND DECISION MAKING: Orders Placed This Encounter Complete Blood Count and Differential Comprehensive Metabolic Panel Lipase Magnesium SIGNATURE: Mya Burdick MD Normal [facility] Lipase SerPl-cCncon 10-16-19 25 Lipase [Catalytic activity/Vol] 56 U/L Normal 16-61 [facility] Comment on above: Order Comment: Speci men Type: BLOOD SPECIMENOrdering Facility: [facility] Address: [address] [place] [address] Performed By: #### 2 4323-8, 32644-7, 3 ####[facility]CL[facility] [id number] [place] [id number] [facility] Magnesium SerPl-mCncon 10-16 Magnesium [Mass/Vol] 1.9 mg/dL Normal 1.7-2.3 [facility] Comment on above: Order Comment: Speci men Type: BLOOD SPECIMENOrdering Facility: [facility] Address: [address] [place] [address] Performed By: #### 2 4323-8, 64676-0, 3 ####[facility]CL[facility] [id number] [place] [id number] [facility] ED Clinical Summaryon 2024 ED Clinical Summary ED Clinical Summary [address] [address] ED Clinical Summary Person Information Name: GAEL RUBY/Anisha Age: 29 Years : 1995 Sex: Female Language: Somali PCP: YOSSI GOLDEN MD Marital Status: Visit Id: Visit Reason: Nausea; Abdominal pain; UPPER ABDOMINAL PAIN, NAUSEA Speciality: Acuity: 3 Enc Type: Emergency Med Service: Emergency Arrival: 10/15/2024 17:56:36 Discharge: 10/15/2024 19:22:47 LOS: 000 01:26 Checkin: 10/15/2024 17:56:36 Checkout: 10/15/2024 19:22:47 Dispo Type: Home (Routine DC) EVENTS: Event Name Event Status Request Date/Time Start Date/Time Complete Date/Time Arrive Complete 10/15/2024 17:56:36 10/15/2024 17:56:36 10/15/2024 17:56:36 Document Home Meds Request 10/15/2024 17:56:36 Triage Complete 10/15/2024 17:56:36 10/15/2024 18:08:59 10/15/2024 18:08:59 Registration Complete 10/15/2024 17:59:53 10/15/2024 17:59:53 10/15/2024 17:59:53 Reg Complete Request 10/15/2024 17:59:53 Reg Bed Request Complete 10/15/2024 17:59:53 10/15/2024 17:59:53 10/15/2024 17:59:53 Bed Assign Complete 10/15/2024 18:03:30 10/15/2024 18:03:30 10/15/2024 18:03:30 Dr Exam Complete 10/15/2024 18:03:30 10/15/2024 18:05:46 10/15/2024 18:05:46 RN Exam Complete 10/15/2024 18:03:30 10/15/2024 18:26:30 10/15/2024 18:26:30 Registration Request 10/15/2024 18:05:46 Isolation Screening Request 10/15/2024 18:08:59 Meds Admin Complete 10/15/2024 18:18:08 10/15/2024 18:40:30 Meds Admin Complete 10/15/2024 18:52:28 10/15/2024 19:01:55 Discharge Complete 10/15/2024 18:52:47 10/15/2024 19:23:05 10/15/2024 19:23:05 Transfer Complete 10/15/2024 19:23:05 10/15/2024 19:23:05 10/15/2024 19:23:05 ADDRESS: [address] [place] [phone] PHYS DOC NOTES: MEDICAL INFORMATION: Prescriptions Given: Medications to Continue with No Changes Other Medications albuterol (Albuterol (Eqv-ProAir HFA) 90 mcg/inh inhalation aerosol) 2 Puffs Inhalation every 4 hours as needed Wheezing. dicyclomine (Bentyl 10 mg Cap) 1 Capsules By Mouth 4 times a day as needed abdominal pain. Refills: 0. dicyclomine (Bentyl 10 mg Cap) 1 Capsules By Mouth 4 times a day for 7 Days. Refills: 0. famotidine (famotidine 20 mg Tab) 1 Tablets By Mouth 2 times a day for 14 Days. Refills: 0. fluoxetine (Prozac 40 mg Cap) 1 Capsules By Mouth every day. at bedtime. glipiZIDE (glipiZIDE 10 mg Tab) 1 Tablets By Mouth 2 times a day. hydrOXYzine (hydrOXYzine hydrochloride 25 mg Tab) 1 Tablets By Mouth every 6 hours as needed as needed for anxiety. ibuprofen insulin glargine (Lantus 100 units/mL Injection-Insulin) 30 Units Subcutaneous once a day (at bedtime). linaclotide (Linzess 72 mcg oral capsule) 1 Capsules By Mouth every other day for 90 Days. Refills: 0. metoclopramide (Reglan 10 mg Tab) 1 Tablets By Mouth every 6 hours. Refills: 0. metoclopramide (Reglan 10 mg Tab) 1 tab(s) Oral QID 7 day(s). Refills: 0. ondansetron (Zofran 4 mg Tab) 1 Tablets By Mouth every 8 hours as needed Nausea/Vomiting. Refills: 6. ondansetron (Zofran ODT 4 mg Tab-Dis) 1 Tablets By Mouth every 8 hours as needed Nausea/Vomiting. Refills: 0. peppermint oil (Ibgard 90 mg oral delayed release capsule) 2 Capsules By Mouth 2 times a day as needed abdominal pain/cramps. Refills: 0. polyethylene glycol 3350 (MiraLax) 17 Gram By Mouth 3 times a day. prochlorperazine (prochlorperazine 5 mg Tab) 1 Tablets By Mouth 3 times a day as needed for nausea/vomiting. Refills: 0. promethazine (Phenergan 25 mg Supp) 1 Suppositories By rectum every 12 hours as needed Nausea/Vomiting. Refills: 6. promethazine (promethazine 12.5 mg Supp) 1 Suppositories By rectum every 4 hours as needed for nausea/vomiting. Refills: 0. PATIENT EDUCATION INFORMATION: Instructions: Abdominal Pain, Adult Follow up: With: Address: When: YOSSI GOLDEN [address] [place] [phone] Business (1) In 3 days 10/18/2024 Comments: Call the office of your primary care doctor to arrange for follow-up within the above-stated timeframe. Follow-up with your primary care doctor about this ED visit. You should review your labs, imaging, and diagnoses from this ED visit with your primary care physician. There are occasionally non-emergent findings that require additional follow-up after your ED visit. If you were prescribed medications you should discuss possible side-effects and drug interactions with your pharmacist. Call 911 or go to the nearest Emergency Department if you develop any new or worsening symptoms. Seek immediate medical attention if you develop: worsening abdominal pain, new or worsening nausea, new or worsening vomiting, new or worsening diarrhea, chest pain, shortness of breath, pain with urination, problems urinating, fever, chills, weakness, or any new or worsening symptoms. DIAGNOSIS: Abdominal pain Normal [facility] ED Note-Nursingon 10-15-2024 ED Note-Nursing ED Note-Nursing Pt home with Normal [facility] ED Note-Physicianon 10-15-19 ED Note-Physician ED Note-Physician Basic Information Time Seen: Cameron Conklin DODanni 10/15/2024 18:05 Chief Complaint patient presents with abdominal pain dx with gastroparesis History of Present Illness 29-year-old female to the emergency department chief complaint of gastroparesis pain. She reports that she ate normally today including some Jeannine's. She then developed some epigastric discomfort consistent with her ongoing gastroparesis. Her is with her who reports that they are getting frustrated that every time they call her GI doctor or primary doctor they referred to the emergency department where we do not have anything to offer her. She is also been admitted and GI tells her that there is not much they can do for her. She is hoping she can get some relief of her symptoms today. Review of Systems A 10 point review of systems is negative except as noted above. Medical and Surgical History: Reviewed and noted Social history: Lives at home Tobacco: Denies Physical Exam Vitals & Measurements T: 36.7 ???C(Oral) HR: 97(Monitored) RR: 16 BP: 130/87 SpO2: 95% HT: 173 cm WT: 115.3 kg BMI: 38.52 VITALS: I have reviewed the triage vital signs. GENERAL: Well developed, well appearing adult in no acute distress. NEURO: Alert and oriented. Moves all extremities. Face is symmetric and expressive. EYES: PERRL. No scleral icterus or conjunctival injection. No discharge. HENT: Normocephalic, atraumatic. Hearing is grossly intact. Nares grossly patent and without discharge. Mucous membranes moist. NECK: No JVD. Patient moves neck without restriction. CARDIO: Rhythm regular. Normal rate. No murmur, rub, or gallop. Pulses equal bilaterally in the upper and lower extremity. No lower extremity edema. PULM: Lungs clear to auscultation in all krishna. No wheezes, rales, or rhonchi. No conversational dyspnea. No splinting, stridor, or accessory muscle use. GI/: Abdomen is soft and non-tender. Normoactive bowel sounds. EXTREMITIES: Symmetric muscle bulk. No joint swelling. No clubbing, cyanosis, or deformity. SKIN: Warm and dry. Normal turgor. No rash or lesions appreciated. PSYCH: Mood, flat affect flat affect Medical Decision Making Well-appearing 29-year-old female to the emergency department with chief complaint of chronic abdominal pain. Vital stable, the patient is afebrile. Her abdominal examination is nontender. Patient has had numerous presentations to the emergency department recently for the symptoms. She has had multiple recent negative workups. She has had recent admission with EGD. Long discussion was had with the patient and her . We did discuss that there is not much more we have to offer than palliation of symptoms. I discussed with them that we are more than happy to treat her symptoms however if they are desiring second opinion or further workup they may want to proceed to the [facility] next time she has a flare where she has been referred by GI. They are pleased with this as they are frustrated that they continue to be sent to the emergency department here at [facility] and we are not providing any solutions other than treating her discomfort at the time. I discussed workup with the patient, multiple recent workups. She agrees with plan for symptomatic treatment only. Of note she has normal vitals, benign exam, is not vomiting. Symptomatic medications were given and she reported she felt somewhat improved. She is comfortable plan for discharge home. She already has a significant amount of symptomatic medications at home. Return precautions were discussed. All questions were answered. The patient was discharged home. Assessment/Plan Abdominal pain (R10.9: Unspecified abdominal pain) Orders: diphenhydrAMINE, 12.5 mg = 0.25 mL, Injection, IV Push, Once, Stop date 10/15/24 18:17:00 EST, STAT, Start date 10/15/24 18:17:00 EST, 10/15/24 18:17:00 EST HYDROmorphone, 0.5 mg = 0.5 mL, Injection, IV Push, Once, Stop date 10/15/24 18:52:00 EST, STAT, Start date 10/15/24 18:52:00 EST, 10/15/24 18:52:00 EST HYDROmorphone, 0.5 mg = 0.5 mL, Injection, IV Push, Once, Stop date 10/15/24 18:17:00 EST, STAT, Start date 10/15/24 18:17:00 EST, 10/15/24 18:17:00 EST promethazine 12.5 mg + Sodium Chloride 0.9% intravenous solution 50 mL, Injection, IV Piggyback, Once, Stop date 10/15/24 18:16:00 EST, STAT, Start date 10/15/24 18:16:00 EST, 151.5 mL/hr, Infuse over 20 minute(s) Medications Administered Given diphenhydrAMINE 50 mg/mL Inj, 12.5 mg, IV Push HYDROmorphone 0.5 mg/0.5 mL injectable solution, 0.5 mg, IV Push HYDROmorphone 1 mg/mL injectable solution, 0.5 mg, IV Push [id number] [F] 12.5 mg + Sodium Chloride 0.9% IV Deniz 50 mL [F] 50 mL, IV Piggyback Disposition Plan Patient Discharge Condition Stable Discharge Disposition Home Discharge Prescription List Prescriptions No active prescription medications Follow-up With When Contact Information YOSSI GOLDEN In 3 days 10/18/2024 [address] (more content not included)... Normal [facility] Comment on above: Result Comment: Elec tronically Signed By: Cameron Conklin DO\.br\Date and Time Signed: 10/15/24 19:41 EST ED Patient Summaryon 025 ED Patient Summary ED Patient Summary [place] [id number] Patient Discharge Instructions Person Information Name: GAEL RUBY Age: 29 Years Arrival Date: 10/15/2024 17:56:36 Discharge Diagnosis: Abdominal pain Primary Care Physician: YOSSI GOLDEN MD Provider Information Primary Provider: Cameron Conklin DO [employer] Processor:None The exam and treatment you received in the Emergency Department were for an urgent problem and are not intended as complete care. It is important that you follow up with a doctor, nurse practitioner, or physician???s secretary administrative assistant for ongoing care. If your symptoms become worse or you do not improve as expected and you are unable to reach your usual health care provider, you should return to the Emergency Department. We are available 24 hours a day. GAEL RUBY has been given the following list of patient education materials, prescriptions and follow-up instructions: Follow-up Instructions: With: Address: When: Y[address] [place], [place] [id number] Business (1) In 3 days 10/18/2024 Comments: Call the office of your primary care doctor to arrange for follow-up within the above-stated timeframe. Follow-up with your primary care doctor about this ED visit. You should review your labs, imaging, and diagnoses from this ED visit with your primary care physician. There are occasionally non-emergent findings that require additional follow-up after your ED visit. If you were prescribed medications you should discuss possible side-effects and drug interactions with your pharmacist. Call 911 or go to the nearest Emergency Department if you develop any new or worsening symptoms. Seek immediate medical attention if you develop: worsening abdominal pain, new or worsening nausea, new or worsening vomiting, new or worsening diarrhea, chest pain, shortness of breath, pain with urination, problems urinating, fever, chills, weakness, or any new or worsening symptoms. In the event that this physician does not participate in your insurance network, please consult with your insurance company to find a nearby participating provider. Patient Education Materials: Abdominal Pain, Adult A MESSAGE TO ALL PATIENTS REGARDING OPIOIDS PRESCRIPTION OPIOIDS: WHAT YOU NEED TO KNOW Prescription opioids can be used to help relieve [id number] pain and are often prescribed following a surgery or injury, or for certain health conditions. These medications can be an important part of the treatment but also come with serious risks. It is important to work with your healthcare provider to make sure you are getting the safest, most effective care. WHAT ARE THE RISKS AND SIDE EFFECTS OF OPIOID USE? Prescription opioids carry serious risks of addiction and overdose, especially with prolonged use. An opioid overdose, often marked by slowed breathing, can cause sudden . The use of prescription opioids can have a number of side effects as well, even when taken as directed: ??? Tolerance???meaning you might need to take more of the medication for the same pain relief ??? Physical dependence???meaning you have symptoms of withdrawal when a medication is stopped ??? Increased sensitivity to pain ??? Constipation ??? Nausea, vomiting, and dry mouth ??? Sleepiness and dizziness ??? Confusion ??? Depression ??? Low levels of testosterone that can result in lower sex drive, energy, and strength ??? Itching and sweating RISKS ARE GREATER WITH: ??? History of drug misuse, substance use disorder, or overdose ??? Mental health conditions (such as depression or anxiety) ??? Sleep apnea ??? Older age (65 years and older) ??? Avoid alcohol while taking prescription opioids. Also, unless specifically advised by your health care provider, medications to avoid include: ??? Benzodiazepines (such as Xanax or Valium) ??? Muscle relaxants (such as Soma or Flexeril) ??? Hypnotics (such as Ambien or Lunesta) ??? Other prescription opioids KNOW YOUR OPTIONS Talk to your health care provider about ways to manage your pain that don???t involve prescription opioids. Some of these options may actually work better and have fewer risks and side effects. Options may include: ??? Pain relievers such as acetaminophen, ibuprofen, and naproxen ??? Some medication that are also used for depression or seizures ??? Physical therapy and exercise ??? Cognitive behavioral therapy, a psychological, goal-directed approach, in which patients learn how to modify physical, behavioral, and emotional triggers of pain and stress. IF YOU ARE PRESCRIBED OPIOIDS FOR PAIN: ??? Never take opioids in greater amounts or more often than prescribed. ??? Follow up with your primary health care provider. o Work together to create a plan on how to manage yo (more content not included)... Normal [facility] Ambulatory Visit Summaryon 0 10-13-2024 Ambulatory Visit Summary Ambulatory Visit Summary GAEL RUBY :1995 Visit Date:10/13/2024 Ambulatory Visit Instructions Your Diagnosis Gastroparesis Abdominal pain Nausea & vomiting Chronic constipation Dysphagia Fatty liver Your Care Team Attending Physician - Beto GREWAL, Aly Whitten Primary Care Physician - YOSSI GOLDEN MD This Is Your Medications List Contact prescribing physician if questions or concerns albuterol (Albuterol (Eqv-ProAir HFA) 90 mcg/inh inhalation aerosol) dicyclomine (Bentyl 10 mg Cap) dicyclomine (Bentyl 10 mg Cap) famotidine (famotidine 20 mg Tab) fluoxetine (Prozac 40 mg Cap) glipiZIDE (glipiZIDE 10 mg Tab) hydrOXYzine (hydrOXYzine hydrochloride 25 mg Tab) ibuprofen insulin glargine (Lantus 100 units/mL Injection-Insulin) linaclotide (Linzess 72 mcg oral capsule) metoclopramide (Reglan 10 mg Tab) metoclopramide (Reglan 10 mg Tab) ondansetron (Zofran 4 mg Tab) ondansetron (Zofran ODT 4 mg Tab-Dis) peppermint oil (Ibgard 90 mg oral delayed release capsule) polyethylene glycol 3350 (MiraLax) prochlorperazine (prochlorperazine 5 mg Tab) promethazine (Phenergan 25 mg Supp) promethazine (promethazine 12.5 mg Supp) Procedures Performed Esophagogastroduodenos copy (09/02/2024), section (2017), section (2015), Bilateral oophorectomy, section, Cholecystectomy, Extraction of wisdom tooth, Laparoscopic hysterectomy, Laparoscopy, Tear duct, Tonsillectomy. Discharge Vitals Heart Rate (Peripheral) 94 Blood Pressure 115/84 Height 173 cm Height 68 in Weight 112.4 kg Weight 247.799 lb BMI 37.56 Medications What How Much When Why Instructions Unchanged albuterol (Albuterol (Eqv-ProAir HFA) 90 mcg/ inh inhalation aerosol) 2 Puffs Inhalation Every 4 hours as needed for Wheezing Contact prescribing physician if questions or concerns Unchanged dicyclomine (Bentyl 10 mg Cap) 1 Capsules By Mouth 4 times a day as needed for abdominal pain Contact prescribing physician if questions or concerns Unchanged dicyclomine (Bentyl 10 mg Cap) 1 Capsules By Mouth 4 times a day Duration: 7 Days Contact prescribing physician if questions or concerns Unchanged famotidine (famotidine 20 mg Tab) 1 Tablets By Mouth 2 times a day Duration: 14 Days Contact prescribing physician if questions or concerns Unchanged fluoxetine (Prozac 40 mg Cap) 1 Capsules By Mouth Every day at bedtime Contact prescribing physician if questions or concerns Unchanged glipiZIDE (glipiZIDE 10 mg Tab) 1 Tablets By Mouth 2 times a day Contact prescribing physician if questions or concerns Unchanged hydrOXYzine (hydrOXYzine hydrochloride 25 mg Tab) 1 Tablets By Mouth Every 6 hours as needed for as needed for anxiety Contact prescribing physician if questions or concerns Unchanged ibuprofen Contact prescribing physician if questions or concerns Unchanged insulin glargine (Lantus 100 units/ mL Injection-Insulin) 30 Units Subcutaneous Once a day (at bedtime) Contact prescribing physician if questions or concerns Unchanged linaclotide (Linzess 72 mcg oral capsule) 1 Capsules By Mouth Every other day Chronic idiopathic constipation Duration: 90 Days Contact prescribing physician if questions or concerns Unchanged metoclopramide (Reglan 10 mg Tab) 1 Tablets By Mouth Every 6 hours Contact prescribing physician if questions or concerns Unchanged metoclopramide (Reglan 10 mg Tab) See instructions 1 tab(s) Oral QID 7 day(s) Contact prescribing physician if questions or concerns Unchanged ondansetron (Zofran 4 mg Tab) 1 Tablets By Mouth Every 8 hours as needed for Nausea/Vomiting Contact prescribing physician if questions or concerns Unchanged ondansetron (Zofran ODT 4 mg Tab-Dis) 1 Tablets By Mouth Every 8 hours as needed for Nausea/Vomiting Contact prescribing physician if questions or concerns Unchanged peppermint oil (Ibgard 90 mg oral delayed release capsule) 2 Capsules By Mouth 2 times a day as needed for abdominal pain/cramps Contact prescribing physician if questions or concerns Unchanged polyethylene glycol 3350 (MiraLax) 17 Gram By Mouth 3 times a day Contact prescribing physician if questions or concerns Unchanged prochlorperazine (prochlorperazine 5 mg Tab) 1 Tablets By Mouth 3 times a day as needed for for nausea/vomiting Contact prescribing physician if questions or concerns Unchanged promethazine (Phenergan 25 mg Supp) 1 Suppositories By rectum Every 12 hours as needed for Nausea/Vomiting Contact prescribing physician if questions or concerns Unchanged promethazine (promethazine 12.5 mg Supp) 1 Suppositories By rectum Every 4 hours as needed for for nausea/vomiting Contact prescribing physician if questions or concerns Medications and Immunizations Administered Not Given influenza virus vaccine, inactivated, Patient Refuses Allergies Eggs (Abdominal pain) Kiwi (unk) Latex (Itching) Pyridium (unk) amoxicillin (Rash, Nausea and vomitin (more content not included)... Normal [facility] Gastroenterology Office/Clin ic Noteon 10-13-2024 Gastroenterology Office/Clinic Note Gastroenterology Office/Clinic Note Chief Complaint Abdominal pain, constiaption, nausea and vomiting. HPI Staff Established patient is a(n) 29 year old female who presents today for a f/u from [facility] 10/06/24 for epigastric pain, nausea/vomiting and gastroparesis. 3 ED visits (09/30/24, 10/04/24, 10/08/24) all c/o abdominal pain, n/v and gastroparesis. Upper abdominal pain started 09/29/24. Tried Reglan and GI cocktail at home with minimal relief. Was given GI cocktail in ED 10/08/24 - noted improvement. Was given Percocet, prochlorperazine and Zofran at D/C. Was referred to [facility] bariatric surgery and Gastroenterology 09/15/24. Scheduled? Appt December 02, 2024 for consult and then December 15, 2024 to see surgeon. Any blood thinners? no Any GLP-1 agonists? no Last visit 09/10/24 w/Dr. Beverly: Assessment/Plan 1. Gastroparesis (K31.84: Gastroparesis) This is a 29-year-old lady with past medical history of diabetes mellitus, GERD, morbid obesity, gastroparesis (37% residual on 4 hours solid GES) who presented to the hospital with worsening nausea Overall she gets recurrence of nausea and vomiting, using Reglan helps at home, GI cocktail also helps, Zofran also helps Her constipation slightly improved than before, but still having very small amount of stools on daily basis, although in the past few days she reports she had a virus with acute diarrhea We discussed treatment options for gastroparesis and diet She reports she was evaluated in the past for bariatric surgery in [place] We also discussed G POEM Will refer her to Dr. Gastelum at [facility] for G point evaluation also to bariatric surgery at [facility] per her request 2. Chronic constipation (K59.09: Other constipation) 3. Dysphagia (R13.10: Dysphagia, unspecified) No stricture noted on the EGD, attempted empiric dilation but patient was not comfortable with sedation therefore dilation was aborted, might consider in the future 4. Abdominal pain (R10.9: Unspecified abdominal pain) 5. Fatty liver (K76.0: Fatty (change of) liver, not elsewhere classified) Laboratory Results CBC CMP Basophil Absolute: 0.1 E9/L (10/08/24) A/G Ratio: 1.2 (10/08/24) Basophil Auto: 0.4 % (10/08/24) AGAP: 14 mEq/L (10/08/24) Eos Absolute: 0.2 E9/L (10/08/24) Albumin Lvl: 4.5 gm/dL (10/08/24) Eos Auto: 1.4 % (10/08/24) Alk Phos: 86 Int._Unit/L (10/08/24) Hct: 44.2 % (10/08/24) ALT: 40 Int._Unit/L (10/08/24) HGB: 15.4 gm/dL (10/08/24) AST: 52 Int._Unit/L High (10/08/24) Lymph Absolute: 4.9 E9/L High (10/08/24) Bili Total: 0.6 mg/dL (10/08/24) Lymph Auto: 36.5 % (10/08/24) BUN: 10 mg/dL (10/08/24) MCH: 29.5 pg (10/08/24) BUN/Creat Ratio: 14 (10/08/24) MCHC: 34.8 gm/dL (10/08/24) Calcium Lvl: 9.6 mg/dL (10/08/24) MCV: 85 fL (10/08/24) Chloride: 104 mmol/L (10/08/24) [place] Absolute: 0.5 E9/L (10/08/24) CO2: 23 mmol/L (10/08/24) [place] Auto: 3.6 % Low (10/08/24) Creatinine: 0.7 mg/dL (10/08/24) MPV: 8.7 fL (10/08/24) Globulin: 3.7 gm/dL (10/08/24) Neutro Absolute: 7.8 E9/L High (10/08/24) Glucose Lvl: 136 mg/dL (10/08/24) Neutro Auto: 58.1 % (10/08/24) Potassium Lvl: 4.6 mmol/L (10/08/24) Platelet: 330 E9/L (10/08/24) Sodium Lvl: 136 mmol/L (10/08/24) RBC: 5.2 E12/L (10/08/24) Total Protein: 8.2 gm/dL High (10/08/24) RDW: 14.8 % High (10/08/24) WBC: 13.5 E9/L High (10/08/24) Lipase: H 117 unit/L (10/08/24) UA Blood: Negat (10/08/24) UA Bacteria: Trace (10/08/24) UA Bili: Negat (10/08/24) UA Clarity: Clear (10/08/24) UA Color: Light-Yellow (10/08/24) UA Glucose: Negat (10/08/24) UA Ketones: Negat (10/08/24) UA Leuk Est: 75 Zhanna/uL Abnormal (10/08/24) UA Mucous: Negat (10/08/24) UA Nitrite: Negat (10/08/24) UA pH: 6.5 (10/08/24) UA Protein: Negat (10/08/24) UA RBC: 0-3 (10/08/24) UA Spec Desc: Clean Catch (10/08/24) UA Spec Grav: 1.009 (10/08/24) UA Squam Epithelial: 0-2 (10/08/24) UA Urobilinogen: Negat (10/08/24) UA WBC: 0-5 (10/08/24) History of Present Illness Reviewed HPI collected by staff Review of Systems PHQ Score Initial Depression Screen Score: 6 SCORE Detailed Depression Screen Score: 17 Total Depression Screen Score: 23 All systems reviewed, negative; Except for above Physical Exam Vitals & Measurements HR: 94(Peripheral) BP: 115/84 HT: 68 in HT: 173 cm WT: 112.4 kg WT: 247.799 lb BMI: 37.56 General: in Nad Abdomen: Soft, NTND Procedure EGD 09/02/24: Impression and Plan 1. Normal esophagus, attempted empiric dilation of the esophagus but because of biting on the white blood it was not possible to pass the dilator through the bite block 2. Erythema in the antrum, mild patchy. Widely open pylorus. Otherwise normal stomach. Biopsies of the stomach were taken to rule out H. pylori. 3. Mild patchy erythema in the duodenum with loss of villi, random biopsies were taken to rule out celiac disease Pathology: Final Diagnosis ( Auth (Verified) ) A: STOMACH, BIOPSY: ??? GASTRIC MUCOSA COMPATIBL (more content not included)... Normal [facility] Comment on above: Result Comment: Elec tronically Signed By: Beto GREWAL, Aly Whitten\.br\Date and Time Signed: 10/13/24 14:22 EST\.br\Electronically Co-Signed By: Josephine Harris MA\.br\Date and Time Co-Signed: 10/13/24 14:21 EST C Urineon 10-10-2024 Bacteria identified Cx Nom (U) Microbiology PROCEDURE: Urine Culture [R1] SOURCE: U CleanCatch BODY SITE: COLLECTED DATE/TIME: 10/08/2024 20:03 EST RECEIVED DATE/TIME: 10/08/2024 22:59 EST START DATE/TIME: 10/08/2024 22:59 EST FREE TEXT SOURCE: Yulissa ESCOBAR, Artem Cavazos. Yulissa ESCOBAR, Artem Cavazos. FINAL REPORTS Final Report [] Verified Date/Time: 10/10/2024 09:25 EST <10,000 cfu/ml Mixed skin contaminants Performing Locations R1: This test was performed at: [facility], [address] [place] [address], [id number] [phone] , [facility] Comment on above: Performed By: #### 2 [id number] #### [facility] [address] [place] [id number] B hCG Qualon 10-08-2024 Beta HCG ( test) Ql Negative [facility] Comment on above: Performed By: #### 2 [id number] #### [facility] [address] [place] [address] BMPon 10-08-2024 Anion gap [Moles/Vol] 14 mmol/L Normal 6-16 [facility] Comment on above: Performed By: #### 2 [id number] #### [facility] [address] [place] [address] Calcium [Mass/Vol] 9.6 mg/dL Normal 8.9-11.1 [facility] Comment on above: Performed By: #### 2 [id number] #### [facility] [address] [place] [address] Chloride [Moles/Vol] 104 mmol/L Normal 101-111 [facility] Comment on above: Performed By: #### 2 [id number] #### [facility] [address] [place] [address] CO2 [Moles/Vol] 23 mmol/L Normal 21-31 [facility] Comment on above: Performed By: #### 2 [id number] #### [facility] [address] [place] [address] Creatinine [Mass/Vol] 0.7 mg/dL Normal 0.5-1.3 [facility] Comment on above: Performed By: #### 2 [id number] #### [facility] [address] [place] [address] Glucose [Mass/Vol] 136 mg/dL Normal 55-199 [facility] Comment on above: Performed By: #### 2 [id number] #### [facility] [address] [place] [address] Potassium [Moles/Vol] 4.6 mmol/L Normal 3.5-5.3 [facility] Comment on above: Performed By: #### 2 [id number] #### [facility] [address] [place] [address] Sodium [Moles/Vol] 136 mmol/L Normal 135-145 [facility] Comment on above: Performed By: #### 2 [id number] #### [facility] [address] [place] [address] Urea nitrogen [Mass/Vol] 10 mg/dL Normal 5-21 [facility] Comment on above: Performed By: #### 2 [id number] #### [facility] [address] [place] [address] Urea nitrogen/Creatinine [Mass ratio] 14 No Units Normal 10-20 [facility] Comment on above: Performed By: #### 2 [id number] #### [facility] [address] [place] [address] CBC w/ Auto Diffon 5 Basophils/100 WBC (Bld) 0.4 % Normal 0.0-2.0 [facility] Comment on above: Performed By: #### 2 [id number] #### [facility] [address] [place] [address] Basophils/Leukocytes Auto (Bld) [Pure # fraction] 0.1 E9/L Normal 0.0-0.2 [facility] Comment on above: Performed By: #### 2 [id number] #### [facility] [address] [place] [address] Eosinophils (Bld) [#/Vol] 0.2 E9/L Normal 0.0-0.5 [facility] Comment on above: Performed By: #### 2 [id number] #### [facility] [address] [place] [address] Eosinophils/100 WBC (Bld) 1.4 % Normal 0.0-8.0 [facility] Comment on above: Performed By: #### 2 [id number] #### [facility] [address] [place] [address] Erythrocyte distribution width (RBC) [Ratio] 14.8 % High 10.9-14.2 [facility] Comment on above: Performed By: #### 2 [id number] #### [facility] [address] [place] [address] Hematocrit (Bld) [Volume fraction] 44.2 % Normal 34.0-46.0 [facility] Comment on above: Performed By: #### 2 [id number] #### [facility] [address] [place] [address] Hemoglobin (Bld) [Mass/Vol] 15.4 g/dL Normal 12.0-16.0 [facility] Comment on above: Performed By: #### 2 [id number] #### [facility] [address] [place] [address] Lymphocytes (Bld) [#/Vol] 4.9 E9/L High 1.0-4.0 [facility] Comment on above: Performed By: #### 2 [id number] #### [facility] [address] [place] [address] Lymphocytes/100 WBC (Bld) 36.5 % Normal 14.0-50.0 [facility] Comment on above: Performed By: #### 2 [id number] #### [facility] [address] [place] [address] MCH (RBC) [Entitic mass] 29.5 pg Normal 27.0-34.0 [facility] Comment on above: Performed By: #### 2 [id number] #### [facility] [address] [place] [address] MCHC (RBC) [Mass/Vol] 34.8 g/dL Normal 31.4-36.0 [facility] Comment on above: Performed By: #### 2 [id number] #### [facility] [address] [place] [address] MCV (RBC) [Entitic vol] 85.0 fL Normal 80.0-100.0 [facility] Comment on above: Performed By: #### 2 [id number] #### [facility] [address] [place] [address] Monocytes (Bld) [#/Vol] 0.5 E9/L Normal 0.2-1.0 [facility] Comment on above: Performed By: #### 2 [id number] #### [facility] [address] [place] [address] Neutrophils (Bld) [#/Vol] 7.8 E9/L High 2.0-7.5 [facility] Comment on above: Performed By: #### 2 [id number] #### [facility] [address] [place] [address] Neutrophils/100 WBC (Bld) 58.1 % Normal 36.0-75.0 [facility] Comment on above: Performed By: #### 2 [id number] #### [facility] [address] [place] [address] Platelet 330.0 E9/L Normal 150.0-500.0 [facility] Comment on above: Performed By: #### 2 [id number] #### [facility] [address] [place] [address] Platelet mean volume (Bld) [Entitic vol] 8.7 fL Normal 6.4-10.8 [facility] Comment on above: Performed By: #### 2 [id number] #### [facility] [address] [place] [address] RBC (Bld) [#/Vol] 5.2 E12/L Normal 4.3-5.9 [facility] Comment on above: Performed By: #### 2 [id number] #### [facility] [address] [place] [address] WBC corrected for nucl RBC Auto (Bld) [#/Vol] 13.5 E9/L High 4.0-11.0 [facility] Comment on above: Performed By: #### 2 [id number] #### [facility] [address] [place] [address] CHEMISTRYOrdered By: SYSTEM SYSTEM on 10-08-2024 Albumin [Mass/Vol] 4.5 g/dL Normal 3.3 - 5.0 gm/dL Remisol Chem Albumin/Globulin [Mass ratio] 1.2 {ratio} Normal 1.1 - 2.2 Remisol Chem ALP [Catalytic activity/Vol] 86 [iU]/d Normal 21 - 98 Int._Unit/L Remisol Chem ALT No additional P-5'-P [Catalytic activity/Vol] 40 [iU]/d Normal 6 - 46 Int._Unit/L Remisol Chem Anion gap [Moles/Vol] 14 mmol/L Normal 6 - 16 mEq/L Remisol Chem AST [Catalytic activity/Vol] 52 [iU]/d High 5 - 43 Int._Unit/L Remisol Chem Bilirubin [Mass/Vol] 0.6 mg/dL Normal 0.0 - 1 .1 mg/dL Remisol Chem Bilirubin.direct [Mass/Vol] 0.1 mg/dL Normal 0.0 - 0.4 mg/dL Remisol Chem Bilirubin.indirect [Mass or moles/Vol] 0.5 mg/dL Normal 0.1 - 0.9 mg/dL Remisol Chem Calcium [Mass/Vol] 9.6 mg/dL Normal 8.9 - 11. 1 mg/dL Remisol Chem Chloride [Moles/Vol] 104 mmol/L Normal 101 - 1 11 mmol/L Remisol Chem CO2 [Moles/Vol] 23 mmol/L Normal 21 - 31 mmol/L Remisol Chem Creatinine [Mass/Vol] 0.7 mg/dL Normal 0.5 - 1.3 mg/dL Remisol Chem eGFR 119 mL/min/1.73 m2 Normal >=59mL/mi n/ 1.73 m2 Remisol Chem Globulin (S) [Mass/Vol] 3.7 g/dL Normal 1.4 - 4.0 gm/dL Remisol Chem Glucose [Mass/Vol] 136 mg/dL Normal 55 - 199 mg/dL Remisol Chem Lipase [Catalytic activity/Vol] 117 U/L High 13 - 58 unit/L Remisol Chem Potassium [Moles/Vol] 4.6 mmol/L Normal 3.5 - 5.3 mmol/L Remisol Chem Protein [Mass/Vol] 8.2 g/dL High 6.0 - 7.8 gm/dL Remisol Chem Sodium [Moles/Vol] 136 mmol/L Normal 135 - 145 mmol/L Remisol Chem Urea nitrogen [Mass/Vol] 10 mg/dL Normal 5 - 21 mg/dL Remisol Chem Urea nitrogen/Creatinine [Mass ratio] 14 mg/mg Normal 10 - 20 Remisol Chem ED Clinical Summaryon 2024 ED Clinical Summary ED Clinical Summary [place] [address] ED Clinical Summary Person Information Name: GAEL RUBY [facility] Age: 29 Years : 1995 Sex: Female Language: Somali PCP: YOSSI GOLDEN MD Marital Status: Visit Id: Visit Reason: Vomiting; Nausea; Abdominal pain; UPPER GASTRO PAIN, NAUSEA Speciality: Acuity: 3 Enc Type: Emergency Med Service: Emergency Arrival: 10/08/2024 17:45:21 Discharge: 10/08/2024 22:05:59 LOS: 000 04:20 Checkin: 10/08/2024 17:45:21 Checkout: 10/08/2024 22:05:59 Dispo Type: Home (Routine DC) EVENTS: Event Name Event Status Request Date/Time Start Date/Time Complete Date/Time Arrive Complete 10/08/2024 17:45:21 10/08/2024 17:45:21 10/08/2024 17:45:21 Document Home Meds Request 10/08/2024 17:45:21 Triage Complete 10/08/2024 17:45:21 10/08/2024 17:52:53 10/08/2024 17:52:53 Registration Complete 10/08/2024 17:52:01 10/08/2024 17:52:01 10/08/2024 17:52:01 Reg Complete Request 10/08/2024 17:52:01 Reg Bed Request Complete 10/08/2024 17:52:01 10/08/2024 17:52:01 10/08/2024 17:52:01 Isolation Screening Request 10/08/2024 17:52:54 Bed Assign Complete 10/08/2024 18:13:07 10/08/2024 18:13:07 10/08/2024 18:13:07 Dr Exam Complete 10/08/2024 18:13:07 10/08/2024 18:19:12 10/08/2024 18:19:12 RN Exam Complete 10/08/2024 18:13:07 10/08/2024 18:36:44 10/08/2024 18:36:44 Registration Request 10/08/2024 18:19:12 Pending Labs Complete 10/08/2024 18:25:57 10/08/2024 20:15:40 Lab Complete 10/08/2024 18:25:57 10/08/2024 19:16:49 Pending Labs Complete 10/08/2024 18:26:09 10/08/2024 19:05:59 Dr Exam Complete 10/08/2024 18:38:55 10/08/2024 18:38:55 10/08/2024 18:38:55 Meds Admin Complete 10/08/2024 18:40:01 10/08/2024 19:26:38 Pending Labs Complete 10/08/2024 18:40:15 10/08/2024 18:40:15 10/08/2024 19:16:49 Lab Complete 10/08/2024 18:40:15 10/08/2024 18:40:15 10/08/2024 19:16:49 Meds Admin Complete 10/08/2024 19:36:55 10/08/2024 19:49:44 Pending Labs Complete 10/08/2024 20:04:40 10/08/2024 20:04:40 10/08/2024 20:04:40 Pending Labs Collected 10/08/2024 20:15:40 10/08/2024 20:15:40 Lab Collected 10/08/2024 20:15:40 10/08/2024 20:15:40 Meds Admin Complete 10/08/2024 20:19:46 10/08/2024 20:38:16 Meds Admin Complete 10/08/2024 21:06:08 10/08/2024 21:39:12 Discharge Complete 10/08/2024 21:43:50 10/08/2024 22:06:05 10/08/2024 22:06:05 Transfer Complete 10/08/2024 22:06:05 10/08/2024 22:06:05 10/08/2024 22:06:05 ADDRESS: [address] [place] [phone] PHYS DOC NOTES: MEDICAL INFORMATION: Prescriptions Given: New Medications [facility] [id number] [place] [phone], [phone] famotidine (famotidine 20 mg Tab) 1 Tablets By Mouth 2 times a day for 14 Days. Refills: 0. Medications to Continue Taking That Have Changed [facility] [id number] [place] [phone], [phone] START: dicyclomine (Bentyl 10 mg Cap) 1 Capsules By Mouth 4 times a day for 7 Days. Refills: 0. START: metoclopramide (Reglan 10 mg Tab) 1 tab(s) Oral QID 7 day(s). Refills: 0. Other Medications START: dicyclomine (Bentyl 10 mg Cap) 1 Capsules By Mouth 4 times a day as needed abdominal pain. Refills: 0. START: metoclopramide (Reglan 10 mg Tab) 1 Tablets By Mouth every 6 hours. Refills: 0. Medications to Continue with No Changes Other Medications albuterol (Albuterol (Eqv-ProAir HFA) 90 mcg/inh inhalation aerosol) 2 Puffs Inhalation every 4 hours as needed Wheezing. fluoxetine (Prozac 40 mg Cap) 1 Capsules By Mouth every day. at bedtime. glipiZIDE (glipiZIDE 10 mg Tab) 1 Tablets By Mouth 2 times a day. hydrOXYzine (hydrOXYzine hydrochloride 25 mg Tab) 1 Tablets By Mouth every 6 hours as needed as needed for anxiety. ibuprofen insulin glargine (Lantus 100 units/mL Injection-Insulin) 30 Units Subcutaneous once a day (at bedtime). linaclotide (Linzess 72 mcg oral capsule) 1 Capsules By Mouth every other day for 90 Days. Refills: 0. ondansetron (Zofran 4 mg Tab) 1 Tablets By Mouth every 8 hours as needed Nausea/Vomiting. Refills: 6. ondansetron (Zofran ODT 4 mg Tab-Dis) 1 Tablets By Mouth every 8 hours as needed Nausea/Vomiting. Refills: 0. peppermint oil (Ibgard 90 mg oral delayed release capsule) 2 Capsules By Mouth 2 times a day as needed abdominal pain/cramps. Refills: 0. polyethylene glycol 3350 (MiraLax) 17 Gram By Mouth 3 times a day. prochlorperazine (prochlorperazine 5 mg Tab) 1 Tablets By Mouth 3 times a day as needed for nausea/vomiting. Refills: 0. promethazine (Phenergan 25 mg Supp) 1 Suppositories By rectum every 12 hours as needed Nausea/Vomiting. Refills: 6. promethazine (promethazine 12.5 mg Supp) 1 Suppositories By rectum every 4 hours as needed for nausea/vomiting. Refills: 0. PATIENT EDUCATION INFORMATION: Instructions: Gastroparesis Follow up: With: Address: When: Aly Beverly [address] [place] [address], [address], [place] [employer] [place] 3 Norw (more content not included)... Normal [facility] ED Note-Physicianon 10-08-19 ED Note-Physician ED Note-Physician Basic Information Time Seen: Artem Duenas PA-C 10/08/2024 18:19 Chief Complaint c/o abdominal pain. Hx of gastroparesis. c/o nausea/vomiting and constipation. History of Present Illness Patient is a 29-year-old female with PMH of gastroparesis that presents today for evaluation of her upper abdominal pain with associated nausea, vomiting, constipation. Patient states last known bowel movement was this morning which was normal and formed in color. No blood in the stool. She states that she feels bloated and constipated. Has a history of gastroparesis and follows with GI and is supposed to see them on Saturday for this. Denies any fevers, bodies, chills. She was just seen here multiple times in the ED with negative workups and improvement with medication and sent home. She did have an EGD done in August that was negative. He is awaiting possible colonoscopy and second opinion with [facility] at this time. Review of Systems No other aggravating or relieving factors no other associated symptoms no other prior treatments or complaints. Family: Reviewed and noncontributory Social: lives at home Review of systems negative unless otherwise specified in the HPI. Physical Exam Vitals & Measurements T: 36.5 ???C(Oral) HR: 104(Monitored) RR: 18 BP: 140/95 SpO2: 95% HT: 173 cm WT: 113 kg BMI: 37.76 General: The patient appears well and in no apparent distress. Patient is resting comfortably on cart. Skin: Warm, dry, no pallor noted. Head: Normocephalic, atraumatic Neck: No JVD Eye: PERRLA, EOMI ENT: Moist mucus membranes Cardiovascular: Regular rate and rhythm. Normal peripheral perfusion Respiratory: CTA bilaterally. No respiratory distress no accessory muscle use no obvious audible wheezing Chest Wall: no deformity Musculoskeletal: normal ROM, no deformity, no swelling GI: Soft no obvious distention. No rebound or rigidity. No guarding. No tenderness. Neurological: A&O moves all extremities equal strength and symmetry Psychiatric: Cooperative and appropriate Medical Decision Making Patient is a 29-year-old female with PMH of gastroparesis that presents today for evaluation of her upper abdominal pain with associated nausea, vomiting, constipation. Last known bowel movement was this morning which was normal in form and color for her. She states she feels bloated. Sees GI for her chronic abdominal symptoms and is scheduled to see them on Saturday. Denies any other systemic signs or symptoms. Is awaiting possible colonoscopy and second opinion with [facility] at this time. On exam the patient is afebrile nontoxic-appearing. She does have diffuse mild upper abdominal pain. The remainder of the abdomen is soft and nontender with no evidence of guarding or distention. Labs demonstrate mild nonspecific leukocytosis at 13.5 which is consistent with her previous WBC values. Mild elevation in her lipase which is again consistent with her previous. No other acute abnormalities. Patient was given a dose of IV Pepcid, morphine, promethazine and was signed out to Dr. Squires pending further evaluation and management with possible improvement with medication. Given additional medications for pain and nausea. On reevaluation patient texting on her phone in no acute distress with no vomiting since my arrival. Discussed findings with patient she is discharged home she is to follow-up with her GI doctor for further evaluation and management. Assessment/Plan Gastroparesis (K31.84: Gastroparesis) Nausea & vomiting (R11.2: Nausea with vomiting, unspecified) Orders: famotidine, 20 mg = 2 mL, Soln-IV, IV Push, Once, Stop date 10/08/24 18:39:00 EST, STAT, Start date 10/08/24 18:39:00 EST, 10/08/24 18:39:00 EST morphine, 4 mg = 1 mL, Injection, IV Push, Once PRN Pain, STAT, Start date 10/08/24 18:39:00 EST, 10/08/24 18:39:00 EST promethazine 25 mg + Sodium Chloride 0.9% intravenous solution 50 mL, Injection, IV Piggyback, Once, Stop date 10/08/24 18:39:00 EST, STAT, Start date 10/08/24 18:39:00 EST, 153 mL/hr, Infuse over 20 minute(s) Basic Metabolic Panel Beta hCG Qual CBC w/ Auto Diff eGFR Hepatic Function Panel Lipase Level UA with Cult Rflx Medications Administered Given famotidine 10 mg/mL IV Deniz, 20 mg, IV Push morphine 4 mg/mL Inj, 4 mg, IV Push Sodium Chloride 0.9% IV Deniz 50 mL [F] 50 mL + [id number] [F] 25 mg, IV Piggyback Disposition Plan Discharge Prescription List Prescriptions Bentyl 10 mg Cap, 10 mg= 1 cap(s), Oral, QID famotidine 20 mg Tab, 20 mg= 1 tab(s), Oral, BID Reglan 10 mg Tab, See Instructions Follow-up With When Contact Information Aly Beverly In 3 days 10/11/2024 EST [address], [address] [phone] Business (1) Additional Instructions: YOSSI GOLDEN In 3 days [address] [place] [address] Business (1) Additional Instructions: Patient Education Gastroparesis Attestation Patient seen (more content not included)... Normal [facility] Comment on above: Result Comment: Elec tronically Signed By: Artem Duenas PA-C\.br\Date and Time Signed: 10/08/24 19:36 EST\.br\Electronically Co-Signed By: Chavo Squires DO\.br\Date and Time Co-Signed: 10/08/24 21:54 EST ED Patient Summaryon 025 ED Patient Summary ED Patient Summary [address] [address] Patient Discharge Instructions Person Information Name: GAEL RUBY Age: 29 Years Arrival Date: 10/08/2024 17:45:21 Discharge Diagnosis: Gastroparesis; Nausea & vomiting Primary Care Physician: YOSSI GOLDEN MD Provider Information Primary Provider: Alphonso Sullivan M.D. [employer]or:Artem Duenas PA-C The exam and treatment you received in the Emergency Department were for an urgent problem and are not intended as complete care. It is important that you follow up with a doctor, nurse practitioner, or physician???s secretary administrative assistant for ongoing care. If your symptoms become worse or you do not improve as expected and you are unable to reach your usual health care provider, you should return to the Emergency Department. We are available 24 hours a day. GAEL RUBY has been given the following list of patient education materials, prescriptions and follow-up instructions: Follow-up Instructions: With: Address: When: Lu Bet[address] Guard[address], [address], [address] [phone] Business (1) In 3 days 10/11/2024 With: Address: When: YOSSI GOLDEN [address] [place], [place] [phone] Business (1) In 3 days In the event that this physician does not participate in your insurance network, please consult with your insurance company to find a nearby participating provider. Patient Education Materials: Gastroparesis A MESSAGE TO ALL PATIENTS REGARDING OPIOIDS PRESCRIPTION OPIOIDS: WHAT YOU NEED TO KNOW Prescription opioids can be used to help relieve wbhuoulr-re-hydwpo pain and are often prescribed following a surgery or injury, or for certain health conditions. These medications can be an important part of the treatment but also come with serious risks. It is important to work with your healthcare provider to make sure you are getting the safest, most effective care. WHAT ARE THE RISKS AND SIDE EFFECTS OF OPIOID USE? Prescription opioids carry serious risks of addiction and overdose, especially with prolonged use. An opioid overdose, often marked by slowed breathing, can cause sudden . The use of prescription opioids can have a number of side effects as well, even when taken as directed: ??? Tolerance???meaning you might need to take more of the medication for the same pain relief ??? Physical dependence???meaning you have symptoms of withdrawal when a medication is stopped ??? Increased sensitivity to pain ??? Constipation ??? Nausea, vomiting, and dry mouth ??? Sleepiness and dizziness ??? Confusion ??? Depression ??? Low levels of testosterone that can result in lower sex drive, energy, and strength ??? Itching and sweating RISKS ARE GREATER WITH: ??? History of drug misuse, substance use disorder, or overdose ??? Mental health conditions (such as depression or anxiety) ??? Sleep apnea ??? Older age (65 years and older) ??? Avoid alcohol while taking prescription opioids. Also, unless specifically advised by your health care provider, medications to avoid include: ??? Benzodiazepines (such as Xanax or Valium) ??? Muscle relaxants (such as Soma or Flexeril) ??? Hypnotics (such as Ambien or Lunesta) ??? Other prescription opioids KNOW YOUR OPTIONS Talk to your health care provider about ways to manage your pain that don???t involve prescription opioids. Some of these options may actually work better and have fewer risks and side effects. Options may include: ??? Pain relievers such as acetaminophen, ibuprofen, and naproxen ??? Some medication that are also used for depression or seizures ??? Physical therapy and exercise ??? Cognitive behavioral therapy, a psychological, goal-directed approach, in which patients learn how to modify physical, behavioral, and emotional triggers of pain and stress. IF YOU ARE PRESCRIBED OPIOIDS FOR PAIN: ??? Never take opioids in greater amounts or more often than prescribed. ??? Follow up with your primary health care provider. o Work together to create a plan on how to manage your pain. o Talk about ways to help manage your pain that don???t involve prescription opioids. o Talk about any and all concerns and side effects. ??? Help prevent misuse and abuse o Never sell or share prescription opioids. o Never use another person???s prescription opioids. ??? Store prescription opioids in a secure place and out of reach of others (this may include visitors, children, friends, and family). ??? Safely dispose of unused prescription opioids: Find your community drug take-back program or your pharmacy mail-back program, or flush them down the toilet, following guidance from the Food and Drug Administration (www.fda.gov/Drugs/Res ourcesForYou). ??? Visit www.cdc.gov/drugoverdo se to learn (more content not included)... Normal [facility] Extra Blueon 10-08-2024 Tube Collected Plasma Yes Invalid Interpretation Code [facility] Comment on above: Performed By: #### 1 [id number] #### [facility] [address] [place] [address] HEMATOLOGYOrdered By: SYSTEM SYSTEM on 10-08-2024 Basophils/100 WBC (Bld) 0.4 % Normal 0.0 - 2.0 % Remisol Heme Basophils/Leukocytes Auto (Bld) [Pure # fraction] 0.1 E9/L Normal 0.0 - 0.2 E9/L Remisol Heme Eosinophils (Bld) [#/Vol] 0.2 E9/L Normal 0.0 - 0.5 E9/L Remisol Heme Eosinophils/100 WBC (Bld) 1.4 % Normal 0.0 - 8.0 % Remisol Heme Erythrocyte distribution width (RBC) [Ratio] 14.8 % High 10.9 - 14.2 % Remisol Heme Hematocrit (Bld) [Volume fraction] 44.2 % Normal 34.0 - 46.0 % Remisol Heme Hemoglobin (Bld) [Mass/Vol] 15.4 g/dL Normal 12.0 - 16.0 gm/dL Remisol Heme Lymphocytes (Bld) [#/Vol] 4.9 E9/L High 1.0 - 4.0 E9/L Remisol Heme Lymphocytes/100 WBC (Bld) 36.5 % Normal 14.0 - 50.0 % Remisol Heme MCH (RBC) [Entitic mass] 29.5 pg Normal 27.0 - 34.0 pg Remisol Heme MCHC (RBC) [Mass/Vol] 34.8 g/dL Normal 31.4 - 36.0 gm/dL Remisol Heme MCV (RBC) [Entitic vol] 85.0 fL Normal 80.0 - 100.0 fL Remisol Heme Monocytes (Bld) [#/Vol] 0.5 E9/L Normal 0.2 - 1.0 E9/L Remisol Heme Monocytes/100 WBC (Bld) 3.6 % Low 4.0 - 14.0 % Remisol Heme Neutrophils (Bld) [#/Vol] 7.8 E9/L High 2.0 - 7.5 E9/L Remisol Heme Neutrophils/100 WBC (Bld) 58.1 % Normal 36.0 - 75.0 % Remisol Heme Platelet 330.0 E9/L Normal 150.0 - 500.0 E9/L Remisol Heme Platelet mean volume (Bld) [Entitic vol] 8.7 fL Normal 6.4 - 10.8 fL Remisol Heme RBC (Bld) [#/Vol] 5.2 E12/L Normal 4.3 - 5.9 E12/L Remisol Heme WBC corrected for nucl RBC Auto (Bld) [#/Vol] 13.5 E9/L High 4.0 - 11.0 E9/L Remisol Heme Hep Func Panelon 10-08-2024 Albumin [Mass/Vol] 4.5 g/dL Normal 3.3-5.0 [facility] Comment on above: Performed By: #### 2 [id number] #### [facility] [address] [place] [address] Albumin/Globulin (S) [Mass conc ratio] 1.2 Normal 1.1-2.2 [facility] Comment on above: Performed By: #### 2 [id number] #### [facility] [address] [place] [address] ALP [Catalytic activity/Vol] 86 Int._Unit/L Normal 21-98 [facility] Comment on above: Performed By: #### 2 [id number] #### [facility] [address] [place] [address] ALT No additional P-5'-P [Catalytic activity/Vol] 40 Int._Unit/L Normal 6-46 [facility] Comment on above: Performed By: #### 2 [id number] #### [facility] [address] [place] [address] AST [Catalytic activity/Vol] 52 Int._Unit/L High 5-43 [facility] Comment on above: Performed By: #### 2 [id number] #### [facility] [address] [place] [address] Bilirubin [Mass/Vol] 0.6 mg/dL Normal 0.0-1.1 [facility] Comment on above: Performed By: #### 2 [id number] #### [facility] [address] [place] [address] Bilirubin.direct [Mass/Vol] 0.1 mg/dL Normal 0.0-0.4 [facility] Comment on above: Performed By: #### 2 [id number] #### [facility] [address] [place] [address] Bilirubin.indirect [Mass or moles/Vol] 0.5 mg/dL Normal 0.1-0.9 [facility] Comment on above: Performed By: #### 2 [id number] #### [facility] [address] [place] [address] Globulin (S) [Mass/Vol] 3.7 g/dL Normal 1.4-4.0 [facility] Comment on above: Performed By: #### 2 [id number] #### [facility] [address] [place] [address] Protein [Mass/Vol] 8.2 g/dL High 6.0-7.8 [facility] Comment on above: Performed By: #### 2 [id number] #### [facility] [address] [place] [address] Lipase Levelon 10-08-2024 Lipase [Catalytic activity/Vol] 117 U/L High 13-58 [facility] Comment on above: Performed By: #### 2 [id number] #### [facility] [address] [place] [address] SEROLOGYOrdered By: Jaxon Sheldon on 10-08-2024 Beta HCG ( test) Ql Negative (10/08/24 6:23 PM) Normal [facility] Man Sero UA with Cult Rflxon 10-08-19 25 Bacteria Auto Ql (U) Trace Normal Trace Fish [facility] Comment on above: Performed By: #### 4 [id number] #### [facility] [address] [place] [address] Bilirubin Ql (U) Negative Normal Negative [facility] Comment on above: Performed By: #### 4 [id number] #### [facility] [address] [place] [address] Clarity (U) Clear Normal Clear [facility] Comment on above: Performed By: #### 4 [id number] #### [facility] [address] [place] [address] Color (U) Light-Yellow Normal Yellow [facility] Comment on above: Result Comment: Micr oscopic readings are only performed on those samples that meet specific criteria set forth by [facility]. Performed By: #### 4 [id number] #### [facility] [address] [place] [address] Epithelial cells.squamous Auto (Urine sed) [#/Area] 0-2 Invalid Interpretation Code [facility] Comment on above: Performed By: #### 4 [id number] #### [facility] [address] [place] [address] Glucose Ql (U) Negative Normal Negative [facility] Comment on above: Performed By: #### 4 [id number] #### [facility] [address] [place] [address] Hemoglobin Auto test strip (U) [Mass/Vol] Negative Normal Negative [facility] Comment on above: Performed By: #### 4 [id number] #### [facility] [address] [place] [address] Ketones Auto test strip Ql (U) Negative Normal Negative [facility] Comment on above: Performed By: #### 4 [id number] #### [facility] [address] [place] [address] Leukocyte esterase Auto test strip Ql (U) 75 Zhanna/uL Abnormal Negative [facility] Comment on above: Performed By: #### 4 [id number] #### [facility] [address] [place] [address] Mucus Auto Ql (U) Negative Normal Negative [facility] Comment on above: Performed By: #### 4 [id number] #### [facility] [address] [place] [address] Nitrite Auto test strip Ql (U) Negative Normal Negative [facility] Comment on above: Performed By: #### 4 [id number] #### [facility] [address] [place] [address] pH (U) 6.5 [pH] Invalid Interpretation Code 5.0-9.0 [facility] Comment on above: Performed By: #### 4 [id number] #### [facility] [address] [place] [address] Protein Ql (U) Negative Normal Negative [facility] Comment on above: Performed By: #### 4 [id number] #### [facility] [address] [place] [address] RBC Ql (U) 0-3 Normal 0-3 [facility] Comment on above: Performed By: #### 4 [id number] #### [facility] [address] [place] [address] Specific gravity (U) [Rel density] 1.009 Invalid Interpretation Code 1.005-1.030 [facility] Comment on above: Performed By: #### 4 [id number] #### [facility] [address] [place] [address] Urobilinogen (U) [Mass/Vol] Negative Normal Negative [facility] Comment on above: Performed By: #### 4 [id number] #### [facility] [address] [place], [place] [id number] WBC Auto (Urine sed) [#/Area] 0-5 Normal 0-5 [facility] Comment on above: Performed By: #### 4 [id number] #### [facility] [address] [place], [place] [id number] Type of Urine collection method Clean Catch Normal [facility] Comment on above: Performed By: #### 4 [id number] #### [facility] [address] [place] [address] URINALYSISOrdered By: SYSTEM SYSTEM on 10-08-2024 Bacteria Auto Ql (U) Trace /HPF Normal Trace/HPF FT UA Auto SS Bilirubin Ql (U) Negative Normal Negativemg/ dL FT UA Auto SS Clarity (U) Clear (10/08/24 8:03 PM) Normal Clear [facility] UA Auto SS Color (U) Light-Yellow 1 (10/08/24 8:03 PM) Normal Yellow FT UA Auto SS Comment on above: Interpretive Data: M icroscopic readings are only performed on those samples that meet specific criteria set forth by [facility]. Epithelial cells.squamous Auto (Urine sed) [#/Area] 0-2 graded/HPF Invalid Interpretation Code FT UA Auto SS Glucose Ql (U) Negative Normal Negativemg/ dL FT UA Auto SS Hemoglobin Auto test strip (U) [Mass/Vol] Negative Normal Negativemg/ dL [facility] UA Auto SS Ketones Auto test strip Ql (U) Negative Normal Negativemg/ dL [facility] UA Auto SS Leukocyte esterase Auto test strip Ql (U) 75 Zhanna/uL Zhanna/uL Invalid Interpretation Code NegativeLeu /uL FT UA Auto SS Mucus Auto Ql (U) Negative Normal Negativegr a ded/LPF FT UA Auto SS Nitrite Auto test strip Ql (U) Negative Normal Negativemg/ dL FT UA Auto SS pH (U) 6.5 *NA* (10/08/24 8:03 PM) Invalid Interpretation Code 5.0 - 9.0 [facility] UA Auto SS Protein Ql (U) Negative Normal Negativemg/ dL FT UA Auto SS RBC Ql (U) 0-3 graded/HPF Normal 0-3graded/H PF FT UA Auto SS Specific gravity (U) [Rel density] 1.009 *NA* (10/08/24 8:03 PM) Invalid Interpretation Code 1.005 - 1.030 FT UA Auto SS Urobilinogen (U) [Mass/Vol] Negative Normal Negativemg/ dL FT UA Auto SS WBC Auto (Urine sed) [#/Area] 0-5 graded/HPF Normal 0-5graded/H PF [facility] UA Auto SS URINALYSISOrdered By: Artem Duenas on 10-08-2024 UA Spec Desc Clean Catch (10/08/24 8:03 PM) Normal [facility] UA Auto SS eGFRon 10-08-2024 eGFR 119 mL/min/1.73 m2 Normal >=59 [facility] Comment on above: Performed By: #### 1 [id number] #### [facility] [address] [place] [address] BMPon 10-06-2024 Anion gap [Moles/Vol] 15 mmol/L Normal -16 [facility] Comment on above: Performed By: #### 2 [id number] #### [facility] [address] [place] [address] Calcium [Mass/Vol] 10.2 mg/dL Normal 8.9-11.1 [facility] Comment on above: Performed By: #### 2 [id number] #### [facility] [address] [place] [address] Chloride [Moles/Vol] 104 mmol/L Normal 101-111 [facility] Comment on above: Performed By: #### 2 [id number] #### [facility] [address] [place] [address] CO2 [Moles/Vol] 23 mmol/L Normal 21-31 [facility] Comment on above: Performed By: #### 2 [id number] #### [facility] [address] [place] [address] Creatinine [Mass/Vol] 0.7 mg/dL Normal 0.5-1.3 [facility] Comment on above: Performed By: #### 2 [id number] #### [facility] [address] [place] [address] Glucose [Mass/Vol] 145 mg/dL Normal 55-199 [facility] Comment on above: Performed By: #### 2 [id number] #### [facility] [address] [place] [address] Potassium [Moles/Vol] 4.1 mmol/L Normal 3.5-5.3 [facility] Comment on above: Performed By: #### 2 [id number] #### [facility] [address] [place] [address] Sodium [Moles/Vol] 138 mmol/L Normal 135-145 [facility] Comment on above: Performed By: #### 2 [id number] #### [facility] [address] [place] [address] Urea nitrogen [Mass/Vol] 11 mg/dL Normal 5-21 [facility] Comment on above: Performed By: #### 2 [id number] #### [facility] [address] [place] [address] Urea nitrogen/Creatinine [Mass ratio] 16 No Units Normal 10-20 [facility] Comment on above: Performed By: #### 2 [id number] #### [facility] [address] [place] [address] CBC w/ Auto Diffon 5 Basophils/100 WBC (Bld) 0.8 % Normal 0.0-2.0 [facility] Comment on above: Performed By: #### 2 [id number] #### [facility] [address] [place] [address] Basophils/Leukocytes Auto (Bld) [Pure # fraction] 0.1 E9/L Normal 0.0-0.2 [facility] Comment on above: Performed By: #### 2 [id number] #### [facility] [address] [place] [address] Eosinophils (Bld) [#/Vol] 0.1 E9/L Normal 0.0-0.5 [facility] Comment on above: Performed By: #### 2 [id number] #### [facility] [address] [place] [address] Eosinophils/100 WBC (Bld) 0.7 % Normal 0.0-8.0 [facility] Comment on above: Performed By: #### 2 [id number] #### [facility] [address] [place] [address] Erythrocyte distribution width (RBC) [Ratio] 14.6 % High 10.9-14.2 [facility] Comment on above: Performed By: #### 2 [id number] #### [facility] [address] [place] [address] Hematocrit (Bld) [Volume fraction] 48.4 % High 34.0-46.0 [facility] Comment on above: Performed By: #### 2 [id number] #### [facility] [address] [place] [address] Hemoglobin (Bld) [Mass/Vol] 16.3 g/dL High 12.0-16.0 [facility] Comment on above: Performed By: #### 2 [id number] #### [facility] [address] [place] [address] Lymphocytes (Bld) [#/Vol] 4.5 E9/L High 1.0-4.0 [facility] Comment on above: Performed By: #### 2 [id number] #### [facility] [address] [place] [address] Lymphocytes/100 WBC (Bld) 32.2 % Normal 14.0-50.0 [facility] Comment on above: Performed By: #### 2 [id number] #### [facility] [address] [place] [address] MCH (RBC) [Entitic mass] 29.1 pg Normal 27.0-34.0 [facility] Comment on above: Performed By: #### 2 [id number] #### [facility] [address] [place] [address] MCHC (RBC) [Mass/Vol] 33.8 g/dL Normal 31.4-36.0 [facility] Comment on above: Performed By: #### 2 [id number] #### [facility] [address] [place] [address] MCV (RBC) [Entitic vol] 86.2 fL Normal 80.0-100.0 [facility] Comment on above: Performed By: #### 2 [id number] #### [facility] [address] [place] [address] Monocytes (Bld) [#/Vol] 0.7 E9/L Normal 0.2-1.0 [facility] Comment on above: Performed By: #### 2 [id number] #### [facility] [address] [place] [address] Neutrophils (Bld) [#/Vol] 8.5 E9/L High 2.0-7.5 [facility] Comment on above: Performed By: #### 2 [id number] #### [facility] [address] [place] [address] Neutrophils/100 WBC (Bld) 61.3 % Normal 36.0-75.0 [facility] Comment on above: Performed By: #### 2 [id number] #### [facility] [address] [place] [address] Platelet mean volume (Bld) [Entitic vol] 8.1 fL Normal 6.4-10.8 [facility] Comment on above: Performed By: #### 2 [id number] #### [facility] [address] [place] [address] Platelets (Bld) [#/Vol] 346.0 E9/L Normal 150.0-500.0 [facility] Comment on above: Performed By: #### 2 [id number] #### [facility] [address] [place] [address] RBC (Bld) [#/Vol] 5.6 E12/L Normal 4.3-5.9 [facility] Comment on above: Performed By: #### 2 [id number] #### [facility] [address] [place] [address] WBC corrected for nucl RBC Auto (Bld) [#/Vol] 13.9 E9/L High 4.0-11.0 [facility] Comment on above: Performed By: #### 2 [id number] #### [facility] [address] [place] [address] CHEMISTRYOrdered By: SYSTEM SYSTEM on 10-06-2024 Albumin [Mass/Vol] 4.8 g/dL Normal 3.3 - 5.0 gm/dL [facility] Albumin/Globulin [Mass ratio] 1.4 {ratio} Normal 1.1 - 2.2 [facility] ALP [Catalytic activity/Vol] 89 [iU]/d Normal 21 - 98 Int._Unit/L [facility] ALT No additional P-5'-P [Catalytic activity/Vol] 35 [iU]/d Normal 6 - 46 Int._Unit/L [facility] Anion gap [Moles/Vol] 15 mmol/L Normal 6 - 16 mEq/L [facility] AST [Catalytic activity/Vol] 30 [iU]/d Normal 5 - 43 Int._Unit/L [facility] Bilirubin [Mass/Vol] 0.6 mg/dL Normal 0.0 - 1 .1 mg/dL [facility] Bilirubin.direct [Mass/Vol] 0.1 mg/dL Normal 0.0 - 0.4 mg/dL [facility] Bilirubin.indirect [Mass or moles/Vol] 0.5 mg/dL Normal 0.1 - 0.9 mg/dL [facility] Calcium [Mass/Vol] 10.2 mg/dL Normal 8.9 - 11. 1 mg/dL [facility] Chloride [Moles/Vol] 104 mmol/L Normal 101 - 1 11 mmol/L [facility] CO2 [Moles/Vol] 23 mmol/L Normal 21 - 31 mmol/L [facility] Creatinine [Mass/Vol] 0.7 mg/dL Normal 0.5 - 1.3 mg/dL [facility] eGFR 119 mL/min/1.73 m2 Normal >=59mL/mi n/ 1.73 m2 [facility] Globulin (S) [Mass/Vol] 3.5 g/dL Normal 1.4 - 4.0 gm/dL [facility] Glucose [Mass/Vol] 145 mg/dL Normal 55 - 199 mg/dL [facility] Lipase [Catalytic activity/Vol] 73 U/L High 13 - 58 unit/L [facility] Potassium [Moles/Vol] 4.1 mmol/L Normal 3.5 - 5.3 mmol/L [facility] Protein [Mass/Vol] 8.3 g/dL High 6.0 - 7.8 gm/dL [facility] Sodium [Moles/Vol] 138 mmol/L Normal 135 - 145 mmol/L [facility] Urea nitrogen [Mass/Vol] 11 mg/dL Normal 5 - 21 mg/dL [facility] Urea nitrogen/Creatinine [Mass ratio] 16 mg/mg Normal 10 - 20 [facility] ED Clinical Summaryon 2024 ED Clinical Summary ED Clinical Summary [place] [id number] ED Clinical Summary Person Information Name: GAEL RUBY/[facility] Age: 29 Years : 1995 Sex: Female Language: Somali PCP: YOSSI GOLDEN MD Marital Status: MRN: [id number] Visit Id: Visit Reason: Nausea; Abdominal pain; UPPER ABDOMINAL PAIN & NAUSEA Speciality: Acuity: 3 Enc Type: Emergency Med Service: Emergency Arrival: 10/06/2024 13:00:33 Discharge: 10/06/2024 19:51:24 LOS: 000 06:51 Checkin: 10/06/2024 13:00:33 Checkout: 10/06/2024 19:51:24 Dispo Type: Home (Routine DC) EVENTS: Event Name Event Status Request Date/Time Start Date/Time Complete Date/Time Arrive Complete 10/06/2024 13:00:33 10/06/2024 13:00:33 10/06/2024 13:00:33 Document Home Meds Request 10/06/2024 13:00:33 Triage Complete 10/06/2024 13:00:33 10/06/2024 13:15:28 10/06/2024 13:15:28 Registration Complete 10/06/2024 13:03:05 10/06/2024 13:03:05 10/06/2024 13:03:05 Reg Complete Request 10/06/2024 13:03:05 Reg Bed Request Complete 10/06/2024 13:03:05 10/06/2024 13:03:05 10/06/2024 13:03:05 Isolation Screening Request 10/06/2024 13:15:28 Pending Labs Complete 10/06/2024 13:16:05 10/06/2024 14:00:04 Lab Complete 10/06/2024 13:16:05 10/06/2024 14:00:04 Bed Assign Complete 10/06/2024 13:17:17 10/06/2024 13:17:17 10/06/2024 13:17:17 Dr Exam Complete 10/06/2024 13:17:17 10/06/2024 13:23:43 10/06/2024 13:23:43 RN Exam Complete 10/06/2024 13:17:17 10/06/2024 13:20:15 10/06/2024 13:20:15 Registration Request 10/06/2024 13:23:43 Dr Exam Complete 10/06/2024 13:30:24 10/06/2024 13:30:24 10/06/2024 13:30:24 Pending Labs Complete 10/06/2024 13:33:18 10/06/2024 13:33:18 10/06/2024 14:00:04 Lab Complete 10/06/2024 13:33:18 10/06/2024 13:33:18 10/06/2024 14:00:04 Pending Labs Complete 10/06/2024 13:37:01 10/06/2024 13:37:01 10/06/2024 13:37:02 Pending Labs Complete 10/06/2024 13:37:45 10/06/2024 13:37:45 10/06/2024 13:37:46 X-Ray Cancel 10/06/2024 14:19:53 10/06/2024 14:20:23 Meds Admin Complete 10/06/2024 14:24:10 10/06/2024 14:49:23 Meds Admin Cancel 10/06/2024 16:38:22 10/06/2024 16:39:34 Meds Admin Complete 10/06/2024 16:39:53 10/06/2024 16:43:09 Meds Admin Complete 10/06/2024 17:29:43 10/06/2024 17:34:46 Meds Admin Complete 10/06/2024 18:00:53 10/06/2024 18:08:58 Meds Admin Complete 10/06/2024 18:03:17 10/06/2024 18:08:58 Meds Admin Complete 10/06/2024 19:08:59 10/06/2024 19:39:16 Discharge Complete 10/06/2024 19:33:49 10/06/2024 19:51:31 10/06/2024 19:51:31 Transfer Complete 10/06/2024 19:51:31 10/06/2024 19:51:31 10/06/2024 19:51:31 ADDRESS: [address] [place] [phone] PHYS DOC NOTES: MEDICAL INFORMATION: Prescriptions Given: New Medications [facility] [id number], [address] [place], [place] [id number], [phone] dicyclomine (Bentyl 10 mg Cap) 1 Capsules By Mouth 4 times a day as needed abdominal pain. Refills: 0. Medications to Continue Taking That Have Changed [facility] [id number], [address] [place], [place] [id number], [phone] START: promethazine (promethazine 12.5 mg Supp) 1 Suppositories By rectum every 4 hours as needed for nausea/vomiting. Refills: 0. Other Medications START: promethazine (Phenergan 25 mg Supp) 1 Suppositories By rectum every 12 hours as needed Nausea/Vomiting. Refills: 6. Medications to Continue with No Changes Other Medications albuterol (Albuterol (Eqv-ProAir HFA) 90 mcg/inh inhalation aerosol) 2 Puffs Inhalation every 4 hours as needed Wheezing. fluoxetine (Prozac 40 mg Cap) 1 Capsules By Mouth every day. at bedtime. glipiZIDE (glipiZIDE 10 mg Tab) 1 Tablets By Mouth 2 times a day. hydrOXYzine (hydrOXYzine hydrochloride 25 mg Tab) 1 Tablets By Mouth every 6 hours as needed as needed for anxiety. ibuprofen insulin glargine (Lantus 100 units/mL Injection-Insulin) 30 Units Subcutaneous once a day (at bedtime). linaclotide (Linzess 72 mcg oral capsule) 1 Capsules By Mouth every other day for 90 Days. Refills: 0. metoclopramide (Reglan 10 mg Tab) 1 Tablets By Mouth every 6 hours. Refills: 0. ondansetron (Zofran 4 mg Tab) 1 Tablets By Mouth every 8 hours as needed Nausea/Vomiting. Refills: 6. ondansetron (Zofran ODT 4 mg Tab-Dis) 1 Tablets By Mouth every 8 hours as needed Nausea/Vomiting. Refills: 0. peppermint oil (Ibgard 90 mg oral delayed release capsule) 2 Capsules By Mouth 2 times a day as needed abdominal pain/cramps. Refills: 0. polyethylene glycol 3350 (MiraLax) 17 Gram By Mouth 3 times a day. prochlorperazine (prochlorperazine 5 mg Tab) 1 Tablets By Mouth 3 times a day as needed for nausea/vomiting. Refills: 0. PATIENT EDUCATION INFORMATION: Instructions: Abdominal Pain, Adult, [id number] Follow up: With: Address: When: [address]ly R[address], [address], [address] [phone] Business (1) In 3 days 10/09/2024 Comments: Call to schedule a follow-up appointment with your g (more content not included)... Normal [facility] ED Note-Nursingon 10-06-2024 ED Note-Nursing ED Note-Nursing Pt d/c with due to unable to drive from following medication administration Normal [facility] ED Patient Summaryon 025 ED Patient Summary ED Patient Summary [address] [address] Patient Discharge Instructions Person Information Name: GAEL RUBY Age: 29 Years Arrival Date: 10/06/2024 13:00:33 Discharge Diagnosis: Epigastric abdominal pain; Gastroparesis; N&V (nausea and vomiting) Primary Care Physician: YOSSI GOLDEN MD Provider Information Primary Provider: Phan Sandy DO [employer]or:Mouna Quintanilla PA-C The exam and treatment you received in the Emergency Department were for an urgent problem and are not intended as complete care. It is important that you follow up with a doctor, nurse practitioner, or physician???s secretary administrative assistant for ongoing care. If your symptoms become worse or you do not improve as expected and you are unable to reach your usual health care provider, you should return to the Emergency Department. We are available 24 hours a day. GAEL RUBY has been given the following list of patient education materials, prescriptions and follow-up instructions: Follow-up Instructions: With: Address: When: Aly Riz[address], [address], [address] [phone] [id number] (1) In 3 days 10/09/2024 Comments: Call to schedule a follow-up appointment with your city weighmaster. Use the Bentyl and Phenergan as needed for symptom management. Return to the ED with any new or worsening symptoms. With: Address: When: YOSSI GOLDEN [address] [place], [place] [phone] Business (1) In 3 days In the event that this physician does not participate in your insurance network, please consult with your insurance company to find a nearby participating provider. Patient Education Materials: Abdominal Pain, Adult, Kuyn-uc-Vcos A MESSAGE TO ALL PATIENTS REGARDING OPIOIDS PRESCRIPTION OPIOIDS: WHAT YOU NEED TO KNOW Prescription opioids can be used to help relieve pcnkwcib-qi-udiixr pain and are often prescribed following a surgery or injury, or for certain health conditions. These medications can be an important part of the treatment but also come with serious risks. It is important to work with your healthcare provider to make sure you are getting the safest, most effective care. WHAT ARE THE RISKS AND SIDE EFFECTS OF OPIOID USE? Prescription opioids carry serious risks of addiction and overdose, especially with prolonged use. An opioid overdose, often marked by slowed breathing, can cause sudden . The use of prescription opioids can have a number of side effects as well, even when taken as directed: ??? Tolerance???meaning you might need to take more of the medication for the same pain relief ??? Physical dependence???meaning you have symptoms of withdrawal when a medication is stopped ??? Increased sensitivity to pain ??? Constipation ??? Nausea, vomiting, and dry mouth ??? Sleepiness and dizziness ??? Confusion ??? Depression ??? Low levels of testosterone that can result in lower sex drive, energy, and strength ??? Itching and sweating RISKS ARE GREATER WITH: ??? History of drug misuse, substance use disorder, or overdose ??? Mental health conditions (such as depression or anxiety) ??? Sleep apnea ??? Older age (65 years and older) ??? Avoid alcohol while taking prescription opioids. Also, unless specifically advised by your health care provider, medications to avoid include: ??? Benzodiazepines (such as Xanax or Valium) ??? Muscle relaxants (such as Soma or Flexeril) ??? Hypnotics (such as Ambien or Lunesta) ??? Other prescription opioids KNOW YOUR OPTIONS Talk to your health care provider about ways to manage your pain that don???t involve prescription opioids. Some of these options may actually work better and have fewer risks and side effects. Options may include: ??? Pain relievers such as acetaminophen, ibuprofen, and naproxen ??? Some medication that are also used for depression or seizures ??? Physical therapy and exercise ??? Cognitive behavioral therapy, a psychological, goal-directed approach, in which patients learn how to modify physical, behavioral, and emotional triggers of pain and stress. IF YOU ARE PRESCRIBED OPIOIDS FOR PAIN: ??? Never take opioids in greater amounts or more often than prescribed. ??? Follow up with your primary health care provider. o Work together to create a plan on how to manage your pain. o Talk about ways to help manage your pain that don???t involve prescription opioids. o Talk about any and all concerns and side effects. ??? Help prevent misuse and abuse o Never sell or share prescription opioids. o Never use another person???s prescription opioids. ??? Store prescription opioids in a secure place and out of reach of others (this may include visitors, children, friends, and family). ??? Safely dispose of unused prescription opioid (more content not included)... Normal [facility] Extra Blueon 10-06-2024 Tube Collected Plasma Yes Invalid Interpretation Code [facility] Comment on above: Performed By: #### 1 [id number] #### [facility] [address] [place] [address] HEMATOLOGYOrdered By: SYSTEM SYSTEM on 10-06-2024 Basophils/100 WBC (Bld) 0.8 % Normal 0.0 - 2.0 % [facility] Heme Basophils/Leukocytes Auto (Bld) [Pure # fraction] 0.1 E9/L Normal 0.0 - 0.2 E9/L [facility] Eosinophils (Bld) [#/Vol] 0.1 E9/L Normal 0.0 - 0.5 E9/L [facility] Eosinophils/100 WBC (Bld) 0.7 % Normal 0.0 - 8.0 % [facility]e Erythrocyte distribution width (RBC) [Ratio] 14.6 % High 10.9 - 14.2 % [facility] Hematocrit (Bld) [Volume fraction] 48.4 % High 34.0 - 46.0 % [facility] Hemoglobin (Bld) [Mass/Vol] 16.3 g/dL High 12.0 - 16.0 gm/dL [facility] Lymphocytes (Bld) [#/Vol] 4.5 E9/L High 1.0 - 4.0 E9/L [facility] Lymphocytes/100 WBC (Bld) 32.2 % Normal 14.0 - 50.0 % [facility] MCH (RBC) [Entitic mass] 29.1 pg Normal 27.0 - 34.0 pg [facility]e MCHC (RBC) [Mass/Vol] 33.8 g/dL Normal 31.4 - 36.0 gm/dL [facility] MCV (RBC) [Entitic vol] 86.2 fL Normal 80.0 - 100.0 fL [facility] Monocytes (Bld) [#/Vol] 0.7 E9/L Normal 0.2 - 1.0 E9/L [facility] Monocytes/100 WBC (Bld) 5.0 % Normal 4.0 - 14.0 % [facility] Neutrophils (Bld) [#/Vol] 8.5 E9/L High 2.0 - 7.5 E9/L [facility] Neutrophils/100 WBC (Bld) 61.3 % Normal 36.0 - 75.0 % [facility] Platelet mean volume (Bld) [Entitic vol] 8.1 fL Normal 6.4 - 10.8 fL [facility] Platelets (Bld) [#/Vol] 346.0 E9/L Normal 150.0 - 500.0 E9/L [facility] RBC (Bld) [#/Vol] 5.6 E12/L Normal 4.3 - 5.9 E12/L [facility] WBC corrected for nucl RBC Auto (Bld) [#/Vol] 13.9 E9/L High 4.0 - 11.0 E9/L [facility] Heme Hep Func Panelon 10-06-2024 Albumin [Mass/Vol] 4.8 g/dL Normal 3.3-5.0 [facility] Comment on above: Performed By: #### 2 [id number] #### [facility] [address] [place] [address] Albumin/Globulin (S) [Mass conc ratio] 1.4 Normal 1.1-2.2 [facility] Comment on above: Performed By: #### 2 [id number] #### [facility] [address] [place] [address] ALP [Catalytic activity/Vol] 89 Int._Unit/L Normal 21-98 [facility] Comment on above: Performed By: #### 2 [id number] #### [facility] [address] [place] [address] ALT No additional P-5'-P [Catalytic activity/Vol] 35 Int._Unit/L Normal 6-46 [facility] Comment on above: Performed By: #### 2 [id number] #### [facility] [address] [place] [address] AST [Catalytic activity/Vol] 30 Int._Unit/L Normal 5-43 [facility] Comment on above: Performed By: #### 2 [id number] #### [facility] [address] [place] [address] Bilirubin [Mass/Vol] 0.6 mg/dL Normal 0.0-1.1 [facility] Comment on above: Performed By: #### 2 [id number] #### [facility] [address] [place] [address] Bilirubin.direct [Mass/Vol] 0.1 mg/dL Normal 0.0-0.4 [facility] Comment on above: Performed By: #### 2 [id number] #### [facility] [address] [place] [address] Bilirubin.indirect [Mass or moles/Vol] 0.5 mg/dL Normal 0.1-0.9 [facility] Comment on above: Performed By: #### 2 [id number] #### [facility] [address] [place] [address] Globulin (S) [Mass/Vol] 3.5 g/dL Normal 1.4-4.0 [facility] Comment on above: Performed By: #### 2 [id number] #### [facility] [address] [place] [address] Protein [Mass/Vol] 8.3 g/dL High 6.0-7.8 [facility] Comment on above: Performed By: #### 2 [id number] #### [facility] [address] [place] [address] Lipase Levelon 10-06-2024 Lipase [Catalytic activity/Vol] 73 U/L High 13-58 [facility] Comment on above: Performed By: #### 2 [id number] #### [facility] [address] [place] [address] UA with Cult Rflxon 10-06-19 25 Bilirubin Ql (U) Negative Normal Negative [facility] Comment on above: Performed By: #### 4 [id number] #### [facility] [address] [place] [address] Clarity (U) Clear Normal Clear [facility] Comment on above: Performed By: #### 4 [id number] #### [facility] [address] [place] [address] Color (U) Light-Yellow Normal Yellow [facility] Comment on above: Result Comment: Micr oscopic readings are only performed on those samples that meet specific criteria set forth by [facility]. Performed By: #### 4 [id number] #### [facility] [address] [place] [address] Glucose Ql (U) 4+ mg/dL Abnormal Negative [facility] Comment on above: Performed By: #### 4 [id number] #### [facility] [address] [place] [address] Hemoglobin Auto test strip (U) [Mass/Vol] Negative Normal Negative [facility] Comment on above: Performed By: #### 4 [id number] #### [facility] [address] [place] [address] Ketones Auto test strip Ql (U) Negative Normal Negative [facility] Comment on above: Performed By: #### 4 [id number] #### [facility] [address] [place] [address] Leukocyte esterase Auto test strip Ql (U) Negative Normal Negative [facility] Comment on above: Performed By: #### 4 [id number] #### [facility] [address] [place] [address] Nitrite Auto test strip Ql (U) Negative Normal Negative [facility] Comment on above: Performed By: #### 4 [id number] #### [facility] [address] [place] [address] pH (U) 6.0 [pH] Invalid Interpretation Code 5.0-9.0 [facility] Comment on above: Performed By: #### 4 [id number] #### [facility] [address] [place], [place] [id number] Protein Ql (U) Trace Abnormal Negative [facility] Comment on above: Performed By: #### 4 [id number] #### [facility] [address] [place], [place] [id number] Specific gravity (U) [Rel density] 1.042 Invalid Interpretation Code 1.005-1.030 [facility] Comment on above: Performed By: #### 4 [id number] #### [facility] [address] [place], [place] [address] Urobilinogen (U) [Mass/Vol] Negative Normal Negative [facility] Comment on above: Performed By: #### 4 [id number] #### [facility] [address] [place], [place] [id number] Type of Urine collection method Clean Catch Normal [facility] Comment on above: Performed By: #### 4 [id number] #### [facility] [address] [place] [address] URINALYSISOrdered By: SYSTEM SYSTEM on 10-06-2024 Bilirubin Ql (U) Negative Normal Negativemg/ dL [facility] UA Auto SS Clarity (U) Clear (10/06/24 1:27 PM) Normal Clear [facility] UA Auto SS Color (U) Light-Yellow 1 (10/06/24 1:27 PM) Normal Yellow [facility] UA Auto SS Comment on above: Interpretive Data: M icroscopic readings are only performed on those samples that meet specific criteria set forth by [facility]. Glucose Ql (U) 4+ mg/dL Invalid Interpretation Code Negativemg/ dL [facility] UA Auto SS Hemoglobin Auto test strip (U) [Mass/Vol] Negative Normal Negativemg/ dL [facility] UA Auto SS Ketones Auto test strip Ql (U) Negative Normal Negativemg/ dL [facility] UA Auto SS Leukocyte esterase Auto test strip Ql (U) Negative Normal NegativeLeu /uL [facility] UA Auto SS Nitrite Auto test strip Ql (U) Negative Normal Negativemg/ dL [facility] UA Auto SS pH (U) 6.0 *NA* (10/06/24 1:27 PM) Invalid Interpretation Code 5.0 - 9.0 [facility] UA Auto SS Protein Ql (U) Trace mg/dL Invalid Interpretation Code Negativemg/ dL [facility] UA Auto SS Specific gravity (U) [Rel density] 1.042 *NA* (10/06/24 1:27 PM) Invalid Interpretation Code 1.005 - 1.030 [facility] UA Auto SS Urobilinogen (U) [Mass/Vol] Negative Normal Negativemg/ dL [facility] UA Auto SS URINALYSISOrdered By: Lisa Santos on 10-06-2024 UA Spec Desc Clean Catch (10/06/24 1:27 PM) Normal [facility] UA Auto SS eGFRon 10-06-2024 eGFR 119 mL/min/1.73 m2 Normal >=59 [facility] Comment on above: Performed By: #### 1 [id number] #### [facility] [address] [place] [address] ED Clinical Summaryon 2024 ED Clinical Summary ED Clinical Summary [address] [address] ED Clinical Summary Person Information Name: GAEL RUBY [facility] Age: 29 Years : 1995 Sex: Female Language: Somali PCP: YOSSI GOLDEN MD Marital Status: MRN: [id number] Visit Id: Visit Reason: Medical problem - minor; Nausea; Abdominal pain; upper abd pain Speciality: Acuity: 3 Enc Type: Emergency Med Service: Emergency Arrival: 10/04/2024 18:49:00 Discharge: 10/05/2024 02:31:43 LOS: 000 07:42 Checkin: 10/04/2024 18:49:00 Checkout: 10/05/2024 02:31:43 Dispo Type: Home (Routine DC) EVENTS: Event Name Event Status Request Date/Time Start Date/Time Complete Date/Time Arrive Complete 10/04/2024 18:49:00 10/04/2024 18:49:00 10/04/2024 18:49:00 Document Home Meds Request 10/04/2024 18:49:00 Triage Complete 10/04/2024 18:49:00 10/04/2024 19:03:04 10/04/2024 19:03:04 Registration Complete 10/04/2024 18:58:45 10/04/2024 18:58:45 10/04/2024 18:58:45 Reg Complete Request 10/04/2024 18:58:45 Reg Bed Request Complete 10/04/2024 18:58:45 10/04/2024 18:58:45 10/04/2024 18:58:45 Isolation Screening Request 10/04/2024 19:03:05 Pending Labs Complete 10/04/2024 19:21:51 10/04/2024 21:21:14 Lab Complete 10/04/2024 19:21:51 10/04/2024 21:21:14 Pending Labs Complete 10/04/2024 20:51:23 10/04/2024 20:51:23 10/04/2024 21:21:14 Lab Complete 10/04/2024 20:51:23 10/04/2024 20:51:23 10/04/2024 21:21:14 Bed Assign Complete 10/04/2024 21:59:12 10/04/2024 21:59:12 10/04/2024 21:59:12 Dr Exam Complete 10/04/2024 21:59:12 10/04/2024 22:01:50 10/04/2024 22:01:50 RN Exam Complete 10/04/2024 21:59:12 10/05/2024 00:19:12 10/05/2024 00:19:12 Registration Request 10/04/2024 22:01:50 Meds Admin Complete 10/04/2024 22:37:42 10/04/2024 23:15:29 Meds Admin Complete 10/04/2024 23:57:29 10/05/2024 00:13:02 Meds Admin Complete 10/05/2024 00:51:59 10/05/2024 01:04:12 Meds Admin Complete 10/05/2024 00:52:57 10/05/2024 01:04:12 Discharge Complete 10/05/2024 02:07:04 10/05/2024 02:31:47 10/05/2024 02:31:47 Transfer Complete 10/05/2024 02:31:47 10/05/2024 02:31:47 10/05/2024 02:31:47 ADDRESS: [address] [place] [phone] PHYS DOC NOTES: MEDICAL INFORMATION: Prescriptions Given: Medications to Continue with No Changes Other Medications albuterol (Albuterol (Eqv-ProAir HFA) 90 mcg/inh inhalation aerosol) 2 Puffs Inhalation every 4 hours as needed Wheezing. fluoxetine (Prozac 40 mg Cap) 1 Capsules By Mouth every day. at bedtime. glipiZIDE (glipiZIDE 10 mg Tab) 1 Tablets By Mouth 2 times a day. hydrOXYzine (hydrOXYzine hydrochloride 25 mg Tab) 1 Tablets By Mouth every 6 hours as needed as needed for anxiety. ibuprofen insulin glargine (Lantus 100 units/mL Injection-Insulin) 30 Units Subcutaneous once a day (at bedtime). linaclotide (Linzess 72 mcg oral capsule) 1 Capsules By Mouth every other day for 90 Days. Refills: 0. metoclopramide (Reglan 10 mg Tab) 1 Tablets By Mouth every 6 hours. Refills: 0. ondansetron (Zofran 4 mg Tab) 1 Tablets By Mouth every 8 hours as needed Nausea/Vomiting. Refills: 6. ondansetron (Zofran ODT 4 mg Tab-Dis) 1 Tablets By Mouth every 8 hours as needed Nausea/Vomiting. Refills: 0. peppermint oil (Ibgard 90 mg oral delayed release capsule) 2 Capsules By Mouth 2 times a day as needed abdominal pain/cramps. Refills: 0. polyethylene glycol 3350 (MiraLax) 17 Gram By Mouth 3 times a day. prochlorperazine (prochlorperazine 5 mg Tab) 1 Tablets By Mouth 3 times a day as needed for nausea/vomiting. Refills: 0. promethazine (Phenergan 25 mg Supp) 1 Suppositories By rectum every 12 hours as needed Nausea/Vomiting. Refills: 6. PATIENT EDUCATION INFORMATION: Instructions: Gastroparesis Follow up: With: Address: When: Colt Riz[address], [address] [place] [phone] Business (1) In 3 days 10/08/2024 With: Address: When: [address], [address] [place] [phone] Business (1) In 3 days 10/08/2024 With: Address: When: YOSSI GOLDEN [address] [place], [place] [phone] Business (1) In 3 days DIAGNOSIS: Acute abdominal pain; Gastroparesis Normal [facility] ED Note-Physicianon 10-05-19 ED Note-Physician ED Note-Physician Basic Information Time Seen: Tonny Butler DO 10/04/2024 22:01 Chief Complaint Abdominal pain that started last night. Nausea, denies vomiting. Hx of gastroparesis. Took pain meds at home without relief. History of Present Illness HPI: Patient is a 29-year-old female with past ministry of depression, diabetes, factor V Leiden, gastroparesis, GERD, who presents to the ED for abdominal discomfort and nausea. Patient states that it feels like a flareup of her gastroparesis. This has been going on since yesterday and has been constant. She denies any episodes of vomiting with this. She denies any change in bowel movements. She denies any fever or chills. She took Reglan as well as a GI cocktail at home with minimal relief. ROS: Pertinent review of systems conducted and is negative except as noted above. Physical exam: General: nontoxic appearing and in no distress HEENT: Mucous membranes moist Neuro: awake and alert Neck: supple, trachea midline Card: Heart regular rate and rhythm no murmur Resp: Lungs clear to auscultation no wheeze or rhonchi Abd: Soft and nondistended. Mild epigastric tenderness that rebound or guarding. Ext: No gross deformity or edema Physical Exam Vitals & Measurements T: 36.8 ???C(Oral) HR: 90(Peripheral) RR: 16 BP: 100/69 SpO2: 97% HT: 172 cm WT: 112.8 kg BMI: 38.13 Medical Decision Making MEDICAL DECISION MAKING Number and Complexity of Problems Differential Diagnosis: [] [facility] Data External documents reviewed: N/A My EKG interpretation: Noted in chart if applicable My CT interpretation: N/A My X-ray interpretation: Noted in chart if applicable My Ultrasound interpretation: N/A Decision rules/scores evaluated: N/A Discussed with: N/A Treatment and Disposition ED Course: Patient is nontoxic-appearing no distress. She is nonperitoneal. Her abdomen is soft with some mild epigastric tenderness. Lab work revealed mild leukocytosis as well as a mild elevation of lipase and hyperglycemia. No signs of DKA. We will give her IV Phenergan as well as Benadryl and Pepcid as this seemed to help her on her last presentation. Patient did continue to have some discomfort so she got a dose of Compazine as well as morphine and Levsin. Patient did have improvement after this. At this time she is comfortable with the plan of discharge with close follow-up with a primary care physician as well as gastroenterology. Patient was discharged stable condition. Shared decision making: As above Code status: N/A Assessment/Plan Acute abdominal pain (R10.9: Unspecified abdominal pain) Gastroparesis (K31.84: Gastroparesis) Orders: chlorproMAZINE, 25 mg = 1 mL, Injection, IntraMuscular, Once, Stop date 10/04/24 23:57:00 EST, STAT, Start date 10/04/24 23:57:00 EST, 10/04/24 23:57:00 EST diphenhydrAMINE, 25 mg = 0.5 mL, Injection, IV Push, Once, Stop date 10/05/24 0:52:00 EST, STAT, Start date 10/05/24 0:52:00 EST, 10/05/24 0:52:00 EST diphenhydrAMINE, 25 mg = 0.5 mL, Injection, IV Push, Once, Stop date 10/04/24 22:36:00 EST, STAT, Start date 10/04/24 22:36:00 EST, 10/04/24 22:36:00 EST famotidine, 20 mg = 2 mL, Soln-IV, IV Push, Once, Stop date 10/04/24 22:37:00 EST, STAT, Start date 10/04/24 22:37:00 EST, 10/04/24 22:37:00 EST hyoscyamine, 0.125 mg = 1 tab(s), Tab, SubLingual, Once, Stop date 10/05/24 0:51:00 EST, STAT, Start date 10/05/24 0:51:00 EST, 10/05/24 0:51:00 EST morphine, 4 mg = 1 mL, Injection, IV Push, Once, Stop date 10/04/24 23:57:00 EST, STAT, Start date 10/04/24 23:57:00 EST, 10/04/24 23:57:00 EST promethazine 25 mg + Sodium Chloride 0.9% intravenous solution 50 mL, Injection, IV Piggyback, Once, Stop date 10/04/24 22:36:00 EST, STAT, Start date 10/04/24 22:36:00 EST, 153 mL/hr, Infuse over 20 minute(s) Medications Administered Given chlorproMAZINE 25 mg/mL Inj, 25 mg, IntraMuscular diphenhydrAMINE 50 mg/mL Inj, 25 mg, IV Push diphenhydrAMINE 50 mg/mL Inj, 25 mg, IV Push famotidine 10 mg/mL IV Deniz, 20 mg, IV Push Levsin 0.125 mg SL Tab, 0.125 mg, SubLingual morphine 4 mg/mL Inj, 4 mg, IV Push Sodium Chloride 0.9% IV Deniz 50 mL [F] 50 mL + [id number] [F] 25 mg, IV Piggyback Disposition Plan Discharge Prescription List Prescriptions No active prescription medications Follow-up With When Contact Information Colt Allan In 3 days 10/08/[address], [address] [place] [phone] Business (1) Additional Instructions: Colt Allan In 3 days 10/08/[address], [address] [place] [phone] Business (1) Additional Instructions: YOSSI GOLDEN In 3 days [address] [place] [phone] Business (1) Additional Instructions: Patient Education Gastroparesis Problem List/Past Medical History Ongoing Abdominal pain Abdominal pain, periumbilical Acute pancreatitis Bilateral lower extremity edema BMI 37.0-37.9, adult Cholangiectasis Chronic constipatio (more content not included)... Normal [facility] Comment on above: Result Comment: Elec tronically Signed By: Tonny Butler DO\.br\Date and Time Signed: 10/05/24 02:09 EST ED Patient Summaryon 025 ED Patient Summary ED Patient Summary [address] [address] Patient Discharge Instructions Person Information Name: GAEL RUBY Age: 29 Years Arrival Date: 10/04/2024 18:49:00 Discharge Diagnosis: Acute abdominal pain; Gastroparesis Primary Care Physician: YOSSI GOLDEN MD Provider Information Primary Provider: Tonny Butler DO [employer]:None The exam and treatment you received in the Emergency Department were for an urgent problem and are not intended as complete care. It is important that you follow up with a doctor, nurse practitioner, or physician???s secretary administrative assistant for ongoing care. If your symptoms become worse or you do not improve as expected and you are unable to reach your usual health care provider, you should return to the Emergency Department. We are available 24 hours a day. GAEL RUBY has been given the following list of patient education materials, prescriptions and follow-up instructions: Follow-up Instructions: With: Address: When: Colt Allan [address], [address] [place] [phone] Business (1) In 3 days 10/08/2024 With: Address: When: Colt Allan [address], [address] [place] [phone] Business (1) In 3 days 10/08/2024 With: Address: When: YOSSI GOLDEN [address] [place] [phone] Business (1) In 3 days In the event that this physician does not participate in your insurance network, please consult with your insurance company to find a nearby participating provider. Patient Education Materials: Gastroparesis A MESSAGE TO ALL PATIENTS REGARDING OPIOIDS PRESCRIPTION OPIOIDS: WHAT YOU NEED TO KNOW Prescription opioids can be used to help relieve [id number]-[id number] pain and are often prescribed following a surgery or injury, or for certain health conditions. These medications can be an important part of the treatment but also come with serious risks. It is important to work with your healthcare provider to make sure you are getting the safest, most effective care. WHAT ARE THE RISKS AND SIDE EFFECTS OF OPIOID USE? Prescription opioids carry serious risks of addiction and overdose, especially with prolonged use. An opioid overdose, often marked by slowed breathing, can cause sudden . The use of prescription opioids can have a number of side effects as well, even when taken as directed: ??? Tolerance???meaning you might need to take more of the medication for the same pain relief ??? Physical dependence???meaning you have symptoms of withdrawal when a medication is stopped ??? Increased sensitivity to pain ??? Constipation ??? Nausea, vomiting, and dry mouth ??? Sleepiness and dizziness ??? Confusion ??? Depression ??? Low levels of testosterone that can result in lower sex drive, energy, and strength ??? Itching and sweating RISKS ARE GREATER WITH: ??? History of drug misuse, substance use disorder, or overdose ??? Mental health conditions (such as depression or anxiety) ??? Sleep apnea ??? Older age (65 years and older) ??? Avoid alcohol while taking prescription opioids. Also, unless specifically advised by your health care provider, medications to avoid include: ??? Benzodiazepines (such as Xanax or Valium) ??? Muscle relaxants (such as Soma or Flexeril) ??? Hypnotics (such as Ambien or Lunesta) ??? Other prescription opioids KNOW YOUR OPTIONS Talk to your health care provider about ways to manage your pain that don???t involve prescription opioids. Some of these options may actually work better and have fewer risks and side effects. Options may include: ??? Pain relievers such as acetaminophen, ibuprofen, and naproxen ??? Some medication that are also used for depression or seizures ??? Physical therapy and exercise ??? Cognitive behavioral therapy, a psychological, goal-directed approach, in which patients learn how to modify physical, behavioral, and emotional triggers of pain and stress. IF YOU ARE PRESCRIBED OPIOIDS FOR PAIN: ??? Never take opioids in greater amounts or more often than prescribed. ??? Follow up with your primary health care provider. o Work together to create a plan on how to manage your pain. o Talk about ways to help manage your pain that don???t involve prescription opioids. o Talk about any and all concerns and side effects. ??? Help prevent misuse and abuse o Never sell or share prescription opioids. o Never use another person???s prescription opioids. ??? Store prescription opioids in a secure place and out of reach of others (this may include visitors, children, friends, and family). ??? Safely dispose of unused prescription opioids: Find your community drug take-back program or your pharmacy mail-back program, or flush them down the toilet, following guidance from the Food and (more content not included)... Normal [facility] B hCG Qualon 10-04-2024 Beta HCG ( test) Ql Negative Normal [facility] Comment on above: Performed By: #### 2 [id number] #### [facility] [address] [place] [address] BMPon 10-04-2024 Anion gap [Moles/Vol] 16 mmol/L Normal 6-16 [facility] Comment on above: Performed By: #### 2 [id number] #### [facility] [address] [place] [address] Calcium [Mass/Vol] 10.0 mg/dL Normal 8.9-11.1 [facility] Comment on above: Performed By: #### 2 [id number] #### [facility] [address] [place] [address] Chloride [Moles/Vol] 102 mmol/L Normal 101-111 [facility] Comment on above: Performed By: #### 2 [id number] #### [facility] [address] [place] [address] CO2 [Moles/Vol] 21 mmol/L Normal 21-31 [facility] Comment on above: Performed By: #### 2 [id number] #### [facility] [address] [place] [address] Creatinine [Mass/Vol] 1.1 mg/dL Normal 0.5-1.3 [facility] Comment on above: Performed By: #### 2 [id number] #### [facility] [address] [place] [address] Glucose [Mass/Vol] 316 mg/dL High 55-199 [facility] Comment on above: Performed By: #### 2 [id number] #### [facility] [address] [place] [address] Potassium [Moles/Vol] 4.2 mmol/L Normal 3.5-5.3 [facility] Comment on above: Performed By: #### 2 [id number] #### [facility] [address] [place] [address] Sodium [Moles/Vol] 135 mmol/L Normal 135-145 [facility] Comment on above: Performed By: #### 2 [id number] #### [facility] [address] [place] [address] Urea nitrogen [Mass/Vol] 17 mg/dL Normal 5-21 [facility] Comment on above: Performed By: #### 2 [id number] #### [facility] [address] [place] [address] Urea nitrogen/Creatinine [Mass ratio] 16 No Units Normal 10-20 [facility] Comment on above: Performed By: #### 2 [id number] #### [facility] [address] [place] [address] CBC w/ Auto Diffon 5 Basophils/100 WBC (Bld) 1.0 % Normal 0.0-2.0 [facility] Comment on above: Performed By: #### 2 [id number] #### [facility] [address] [place] [address] Basophils/Leukocytes Auto (Bld) [Pure # fraction] 0.1 E9/L Normal 0.0-0.2 [facility] Comment on above: Performed By: #### 2 [id number] #### [facility] [address] [place] [address] Eosinophils (Bld) [#/Vol] 0.2 E9/L Normal 0.0-0.5 [facility] Comment on above: Performed By: #### 2 [id number] #### [facility] [address] [place] [address] Eosinophils/100 WBC (Bld) 1.2 % Normal 0.0-8.0 [facility] Comment on above: Performed By: #### 2 [id number] #### [facility] [address] [place] [address] Erythrocyte distribution width (RBC) [Ratio] 14.7 % High 10.9-14.2 [facility] Comment on above: Performed By: #### 2 [id number] #### [facility] [address] [place] [address] Hematocrit (Bld) [Volume fraction] 45.5 % Normal 34.0-46.0 [facility] Comment on above: Performed By: #### 2 [id number] #### [facility] [address] [place] [address] Hemoglobin (Bld) [Mass/Vol] 15.4 g/dL Normal 12.0-16.0 [facility] Comment on above: Performed By: #### 2 [id number] #### [facility] [address] [place] [address] Lymphocytes (Bld) [#/Vol] 4.6 E9/L High 1.0-4.0 [facility] Comment on above: Performed By: #### 2 [id number] #### [facility] [address] [place] [address] Lymphocytes/100 WBC (Bld) 36.6 % Normal 14.0-50.0 [facility] Comment on above: Performed By: #### 2 [id number] #### [facility] [address] [place] [address] MCH (RBC) [Entitic mass] 29.1 pg Normal 27.0-34.0 [facility] Comment on above: Performed By: #### 2 [id number] #### [facility] [address] [place] [address] MCHC (RBC) [Mass/Vol] 33.8 g/dL Normal 31.4-36.0 [facility] Comment on above: Performed By: #### 2 [id number] #### [facility] [address] [place] [address] MCV (RBC) [Entitic vol] 86.0 fL Normal 80.0-100.0 [facility] Comment on above: Performed By: #### 2 [id number] #### [facility] [address] [place] [id number] Monocytes (Bld) [#/Vol] 0.6 E9/L Normal 0.2-1.0 [facility] Comment on above: Performed By: #### 2 [id number] #### [facility] [address] [place] [address] Neutrophils (Bld) [#/Vol] 7.1 E9/L Normal 2.0-7.5 [facility] Comment on above: Performed By: #### 2 [id number] #### [facility] [address] [place] [address] Neutrophils/100 WBC (Bld) 56.1 % Normal 36.0-75.0 [facility] Comment on above: Performed By: #### 2 [id number] #### [facility] [address] [place] [address] Platelet 345.0 E9/L Normal 150.0-500.0 [facility] Comment on above: Performed By: #### 2 [id number] #### [facility] [address] [place] [address] Platelet mean volume (Bld) [Entitic vol] 8.3 fL Normal 6.4-10.8 [facility] Comment on above: Performed By: #### 2 [id number] #### [facility] [address] [place] [address] RBC (Bld) [#/Vol] 5.3 E12/L Normal 4.3-5.9 [facility] Comment on above: Performed By: #### 2 [id number] #### [facility] [address] [place] [address] WBC corrected for nucl RBC Auto (Bld) [#/Vol] 12.7 E9/L High 4.0-11.0 [facility] Comment on above: Performed By: #### 2 [id number] #### [facility] [address] [place] [address] CHEMISTRYOrdered By: SYSTEM SYSTEM on 10-04-2024 Albumin [Mass/Vol] 4.4 g/dL Normal 3.3 - 5.0 gm/dL Remisol Chem Albumin/Globulin [Mass ratio] 1.3 {ratio} Normal 1.1 - 2.2 Remisol Chem ALP [Catalytic activity/Vol] 86 [iU]/d Normal 21 - 98 Int._Unit/L Remisol Chem ALT No additional P-5'-P [Catalytic activity/Vol] 28 [iU]/d Normal 6 - 46 Int._Unit/L Remisol Chem Anion gap [Moles/Vol] 16 mmol/L Normal 6 - 16 mEq/L Remisol Chem AST [Catalytic activity/Vol] 30 [iU]/d Normal 5 - 43 Int._Unit/L Remisol Chem Bilirubin [Mass/Vol] 0.5 mg/dL Normal 0.0 - 1 .1 mg/dL Remisol Chem Bilirubin.direct [Mass/Vol] 0.1 mg/dL Normal 0.0 - 0.4 mg/dL Remisol Chem Bilirubin.indirect [Mass or moles/Vol] 0.4 mg/dL Normal 0.1 - 0.9 mg/dL Remisol Chem Calcium [Mass/Vol] 10.0 mg/dL Normal 8.9 - 11. 1 mg/dL Remisol Chem Chloride [Moles/Vol] 102 mmol/L Normal 101 - 1 11 mmol/L Remisol Chem CO2 [Moles/Vol] 21 mmol/L Normal 21 - 31 mmol/L Remisol Chem Creatinine [Mass/Vol] 1.1 mg/dL Normal 0.5 - 1.3 mg/dL Remisol Chem eGFR 69 mL/min/1.73 m2 Normal >=59mL/min / 1.73 m2 Remisol Chem Globulin (S) [Mass/Vol] 3.3 g/dL Normal 1.4 - 4.0 gm/dL Remisol Chem Glucose [Mass/Vol] 316 mg/dL High 55 - 199 mg/dL Remisol Chem Lipase [Catalytic activity/Vol] 119 U/L High 13 - 58 unit/L Remisol Chem Potassium [Moles/Vol] 4.2 mmol/L Normal 3.5 - 5.3 mmol/L Remisol Chem Protein [Mass/Vol] 7.7 g/dL Normal 6.0 - 7.8 gm/dL Remisol Chem Sodium [Moles/Vol] 135 mmol/L Normal 135 - 145 mmol/L Remisol Chem Urea nitrogen [Mass/Vol] 17 mg/dL Normal 5 - 21 mg/dL Remisol Chem Urea nitrogen/Creatinine [Mass ratio] 16 mg/mg Normal 10 - 20 Remisol Chem HEMATOLOGYOrdered By: SYSTEM SYSTEM on 10-04-2024 Basophils/100 WBC (Bld) 1.0 % Normal 0.0 - 2.0 % Remisol Heme Basophils/Leukocytes Auto (Bld) [Pure # fraction] 0.1 E9/L Normal 0.0 - 0.2 E9/L Remisol Heme Eosinophils (Bld) [#/Vol] 0.2 E9/L Normal 0.0 - 0.5 E9/L Remisol Heme Eosinophils/100 WBC (Bld) 1.2 % Normal 0.0 - 8.0 % Remisol Heme Erythrocyte distribution width (RBC) [Ratio] 14.7 % High 10.9 - 14.2 % Remisol Heme Hematocrit (Bld) [Volume fraction] 45.5 % Normal 34.0 - 46.0 % Remisol Heme Hemoglobin (Bld) [Mass/Vol] 15.4 g/dL Normal 12.0 - 16.0 gm/dL Remisol Heme Lymphocytes (Bld) [#/Vol] 4.6 E9/L High 1.0 - 4.0 E9/L Remisol Heme Lymphocytes/100 WBC (Bld) 36.6 % Normal 14.0 - 50.0 % Remisol Heme MCH (RBC) [Entitic mass] 29.1 pg Normal 27.0 - 34.0 pg Remisol Heme MCHC (RBC) [Mass/Vol] 33.8 g/dL Normal 31.4 - 36.0 gm/dL Remisol Heme MCV (RBC) [Entitic vol] 86.0 fL Normal 80.0 - 100.0 fL Remisol Heme Monocytes (Bld) [#/Vol] 0.6 E9/L Normal 0.2 - 1.0 E9/L Remisol Heme Monocytes/100 WBC (Bld) 5.1 % Normal 4.0 - 14.0 % Remisol Heme Neutrophils (Bld) [#/Vol] 7.1 E9/L Normal 2.0 - 7.5 E9/L Remisol Heme Neutrophils/100 WBC (Bld) 56.1 % Normal 36.0 - 75.0 % Remisol Heme Platelet 345.0 E9/L Normal 150.0 - 500.0 E9/L Remisol Heme Platelet mean volume (Bld) [Entitic vol] 8.3 fL Normal 6.4 - 10.8 fL Remisol Heme RBC (Bld) [#/Vol] 5.3 E12/L Normal 4.3 - 5.9 E12/L Remisol Heme WBC corrected for nucl RBC Auto (Bld) [#/Vol] 12.7 E9/L High 4.0 - 11.0 E9/L Remisol Heme Hep Func Panelon 10-04-2024 Albumin [Mass/Vol] 4.4 g/dL Normal 3.3-5.0 [facility] Comment on above: Performed By: #### 2 [id number] #### [facility] [address] [place] [address] Albumin/Globulin (S) [Mass conc ratio] 1.3 Normal 1.1-2.2 [facility] Comment on above: Performed By: #### 2 [id number] #### [facility] [address] [place] [address] ALP [Catalytic activity/Vol] 86 Int._Unit/L Normal 21-98 [facility] Comment on above: Performed By: #### 2 [id number] #### [facility] [address] [place] [address] ALT No additional P-5'-P [Catalytic activity/Vol] 28 Int._Unit/L Normal 6-46 [facility] Comment on above: Performed By: #### 2 [id number] #### [facility] [address] [place] [address] AST [Catalytic activity/Vol] 30 Int._Unit/L Normal 5-43 [facility] Comment on above: Performed By: #### 2 [id number] #### [facility] [address] [place] [address] Bilirubin [Mass/Vol] 0.5 mg/dL Normal 0.0-1.1 [facility] Comment on above: Performed By: #### 2 [id number] #### [facility] [address] [place] [address] Bilirubin.direct [Mass/Vol] 0.1 mg/dL Normal 0.0-0.4 [facility] Comment on above: Performed By: #### 2 [id number] #### [facility] [address] [place] [address] Bilirubin.indirect [Mass or moles/Vol] 0.4 mg/dL Normal 0.1-0.9 [facility] Comment on above: Performed By: #### 2 [id number] #### [facility] [address] [place] [address] Globulin (S) [Mass/Vol] 3.3 g/dL Normal 1.4-4.0 [facility] Comment on above: Performed By: #### 2 520703 #### [facility] [address] [place] [address] Protein [Mass/Vol] 7.7 g/dL Normal 6.0-7.8 [facility] Comment on above: Performed By: #### 2 [id number] #### [facility] [address] [place] [address] Lipase Levelon 10-04-2024 Lipase [Catalytic activity/Vol] 119 U/L High 13-58 [facility] Comment on above: Performed By: #### 2 [id number] #### [facility] [address] [place] [address] SEROLOGYOrdered By: Shannan Rowe on 10-04-2024 Beta HCG ( test) Ql Negative (10/04/24 8:32 PM) Normal [facility] Sero eGFRon 10-04-2024 eGFR 69 mL/min/1.73 m2 Normal >=59 [facility] Comment on above: Performed By: #### 1 [id number] #### [facility] [address] [place] [address] ALL THYROID STIM HORMONEon 0 09-30-2024 MHPT THYROID STIM. HORM. 0.57 [facility] Original Ordering Provider: MERRILL SINGH [facility] B hCG Qualon 09-30-2024 Beta HCG ( test) Ql Negative Normal [facility] Comment on above: Performed By: #### 2 [id number] #### [facility] [address] [place] [address] BMPon 09-30-2024 Anion gap [Moles/Vol] 15 mmol/L Normal 6-16 [facility] Comment on above: Performed By: #### 2 [id number] #### [facility] [address] [place] [address] Calcium [Mass/Vol] 9.6 mg/dL Normal 8.9-11.1 [facility] Comment on above: Performed By: #### 2 [id number] #### [facility] [address] [place] [address] Chloride [Moles/Vol] 105 mmol/L Normal 101-111 [facility] Comment on above: Performed By: #### 2 162821 #### [facility] [address] [place] [address] CO2 [Moles/Vol] 23 mmol/L Normal 21-31 [facility] Comment on above: Performed By: #### 2 [id number] #### [facility] [address] [place] [address] Creatinine [Mass/Vol] 0.8 mg/dL Normal 0.5-1.3 [facility] Comment on above: Performed By: #### 2 [id number] #### [facility] [address] [place] [address] Glucose [Mass/Vol] 195 mg/dL Normal 55-199 [facility] Comment on above: Performed By: #### 2 696105 #### [facility] [address] [place] [address] Potassium [Moles/Vol] 4.2 mmol/L Normal 3.5-5.3 [facility] Comment on above: Performed By: #### 2 478339 #### [facility] [address] [place] [address] Sodium [Moles/Vol] 139 mmol/L Normal 135-145 [facility] Comment on above: Performed By: #### 2 602692 #### [facility] [address] [place] [address] Urea nitrogen [Mass/Vol] 14 mg/dL Normal 5-21 [facility] Comment on above: Performed By: #### 2 595273 #### [facility] [address] [place] [address] Urea nitrogen/Creatinine [Mass ratio] 18 No Units Normal 10-20 [facility] Comment on above: Performed By: #### 2 [id number] #### [facility] [address] [place] [address] CBC w/ Auto Diffon 5 Basophils/100 WBC (Bld) 1.2 % Normal 0.0-2.0 [facility] Comment on above: Performed By: #### 2 854570 #### [facility] [address] [place] [address] Basophils/Leukocytes Auto (Bld) [Pure # fraction] 0.1 E9/L Normal 0.0-0.2 [facility] Comment on above: Performed By: #### 2 [id number] #### [facility] [address] [place] [address] Eosinophils (Bld) [#/Vol] 0.1 E9/L Normal 0.0-0.5 [facility] Comment on above: Performed By: #### 2 [id number] #### [facility] [address] [place] [address] Eosinophils/100 WBC (Bld) 0.7 % Normal 0.0-8.0 [facility] Comment on above: Performed By: #### 2 285775 #### [facility] [address] [place] [address] Erythrocyte distribution width (RBC) [Ratio] 14.9 % High 10.9-14.2 [facility] Comment on above: Performed By: #### 2 [id number] #### [facility] [address] [place] [address] Hematocrit (Bld) [Volume fraction] 46.6 % High 34.0-46.0 [facility] Comment on above: Performed By: #### 2 [id number] #### [facility] [address] [place] [address] Hemoglobin (Bld) [Mass/Vol] 15.9 g/dL Normal 12.0-16.0 [facility] Comment on above: Performed By: #### 2 058530 #### [facility] [address] [place] [address] Lymphocytes (Bld) [#/Vol] 3.2 E9/L Normal 1.0-4.0 [facility] Comment on above: Performed By: #### 2 709569 #### [facility] [address] [place] [address] Lymphocytes/100 WBC (Bld) 29.7 % Normal 14.0-50.0 [facility] Comment on above: Performed By: #### 2 625461 #### [facility] [address] [place] [address] MCH (RBC) [Entitic mass] 29.3 pg Normal 27.0-34.0 [facility] Comment on above: Performed By: #### 2 [id number] #### [facility] [address] [place] [address] MCHC (RBC) [Mass/Vol] 34.1 g/dL Normal 31.4-36.0 [facility] Comment on above: Performed By: #### 2 846353 #### [facility] [address] [place] [address] MCV (RBC) [Entitic vol] 85.8 fL Normal 80.0-100.0 [facility] Comment on above: Performed By: #### 2 146434 #### [facility] [address] [place] [address] Monocytes (Bld) [#/Vol] 0.5 E9/L Normal 0.2-1.0 [facility] Comment on above: Performed By: #### 2 551303 #### [facility] [address] [place] [address] Neutrophils (Bld) [#/Vol] 6.9 E9/L Normal 2.0-7.5 [facility] Comment on above: Performed By: #### 2 120644 #### [facility] [address] [place] [address] Neutrophils/100 WBC (Bld) 63.4 % Normal 36.0-75.0 [facility] Comment on above: Performed By: #### 2 [id number] #### [facility] [address] [place] [address] Platelet mean volume (Bld) [Entitic vol] 8.6 fL Normal 6.4-10.8 [facility] Comment on above: Performed By: #### 2 682366 #### [facility] [address] [place] [address] Platelets (Bld) [#/Vol] 311.0 E9/L Normal 150.0-500.0 [facility] Comment on above: Performed By: #### 2 238666 #### [facility] [address] [place] [address] RBC (Bld) [#/Vol] 5.4 E12/L Normal 4.3-5.9 [facility] Comment on above: Performed By: #### 2 [id number] #### [facility] [address] [place] [address] WBC corrected for nucl RBC Auto (Bld) [#/Vol] 10.9 E9/L Normal 4.0-11.0 [facility] Comment on above: Performed By: #### 2 [id number] #### [facility] [address] [place] [address] CHEMISTRYOrdered By: SYSTEM SYSTEM on 09-30-2024 Albumin [Mass/Vol] 4.6 g/dL Normal 3.3 - 5.0 gm/dL Remisol Chem Albumin/Globulin [Mass ratio] 1.4 {ratio} Normal 1.1 - 2.2 Remisol Chem ALP [Catalytic activity/Vol] 98 [iU]/d Normal 21 - 98 Int._Unit/L Remisol Chem ALT No additional P-5'-P [Catalytic activity/Vol] 35 [iU]/d Normal 6 - 46 Int._Unit/L Remisol Chem Anion gap [Moles/Vol] 15 mmol/L Normal 6 - 16 mEq/L Remisol Chem AST [Catalytic activity/Vol] 48 [iU]/d High 5 - 43 Int._Unit/L Remisol Chem Bilirubin [Mass/Vol] 0.7 mg/dL Normal 0.0 - 1 .1 mg/dL Remisol Chem Bilirubin.direct [Mass/Vol] 0.1 mg/dL Normal 0.0 - 0.4 mg/dL Remisol Chem Bilirubin.indirect [Mass or moles/Vol] 0.6 mg/dL Normal 0.1 - 0.9 mg/dL Remisol Chem Calcium [Mass/Vol] 9.6 mg/dL Normal 8.9 - 11. 1 mg/dL Remisol Chem Chloride [Moles/Vol] 105 mmol/L Normal 101 - 1 11 mmol/L Remisol Chem CO2 [Moles/Vol] 23 mmol/L Normal 21 - 31 mmol/L Remisol Chem Creatinine [Mass/Vol] 0.8 mg/dL Normal 0.5 - 1.3 mg/dL Remisol Chem eGFR 101 mL/min/1.73 m2 Normal >=59mL/mi n/ 1.73 m2 Remisol Chem Globulin (S) [Mass/Vol] 3.3 g/dL Normal 1.4 - 4.0 gm/dL Remisol Chem Glucose [Mass/Vol] 195 mg/dL Normal 55 - 199 mg/dL Remisol Chem Lipase [Catalytic activity/Vol] 93 U/L High 13 - 58 unit/L Remisol Chem Potassium [Moles/Vol] 4.2 mmol/L Normal 3.5 - 5.3 mmol/L Remisol Chem Protein [Mass/Vol] 7.9 g/dL High 6.0 - 7.8 gm/dL Remisol Chem Sodium [Moles/Vol] 139 mmol/L Normal 135 - 145 mmol/L Remisol Chem Urea nitrogen [Mass/Vol] 14 mg/dL Normal 5 - 21 mg/dL Remisol Chem Urea nitrogen/Creatinine [Mass ratio] 18 mg/mg Normal 10 - 20 Remisol Chem ED Clinical Summaryon 2024 ED Clinical Summary ED Clinical Summary [place] [address] ED Clinical Summary Person Information Name: GAEL RUBY Jsoep/[facility] Age: 29 Years : 1995 Sex: Female Language: Somali PCP: YOSSI GOLDEN MD Marital Status: Visit Id: Visit Reason: Nausea; Abdominal pain; UPPER ABD PAIN Speciality: Acuity: 3 Enc Type: Emergency Med Service: Emergency Arrival: 09/30/2024 10:45:13 Discharge: 09/30/2024 13:49:44 LOS: 000 03:04 Checkin: 09/30/2024 10:45:13 Checkout: 09/30/2024 13:49:44 Dispo Type: Home (Routine DC) EVENTS: Event Name Event Status Request Date/Time Start Date/Time Complete Date/Time Arrive Complete 09/30/2024 10:45:13 09/30/2024 10:45:13 09/30/2024 10:45:13 Document Home Meds Request 09/30/2024 10:45:13 Triage Complete 09/30/2024 10:45:13 09/30/2024 10:54:30 09/30/2024 10:54:30 Bed Assign Complete 09/30/2024 10:48:07 09/30/2024 10:48:07 09/30/2024 10:48:07 Dr Exam Complete 09/30/2024 10:48:07 09/30/2024 10:54:40 09/30/2024 10:54:40 RN Exam Complete 09/30/2024 10:48:07 09/30/2024 10:57:12 09/30/2024 10:57:12 Isolation Screening Request 09/30/2024 10:54:31 Registration Complete 09/30/2024 10:54:40 09/30/2024 11:05:00 09/30/2024 11:05:00 Reg Complete Request 09/30/2024 11:05:00 Reg Bed Request Complete 09/30/2024 11:05:00 09/30/2024 11:05:00 09/30/2024 11:05:00 EKG Complete 09/30/2024 11:16:57 09/30/2024 11:26:41 Pending Labs Complete 09/30/2024 11:16:57 09/30/2024 12:45:10 Lab Complete 09/30/2024 11:16:57 09/30/2024 12:05:48 Patient Care Complete 09/30/2024 11:16:57 09/30/2024 11:23:39 Meds Admin Request 09/30/2024 11:30:32 Pending Labs Complete 09/30/2024 11:32:01 09/30/2024 11:32:01 09/30/2024 12:05:48 Lab Complete 09/30/2024 11:32:01 09/30/2024 11:32:01 09/30/2024 12:05:48 Meds Admin Complete 09/30/2024 12:32:55 09/30/2024 12:37:35 Meds Admin Complete 09/30/2024 12:33:13 09/30/2024 12:37:35 Discharge Complete 09/30/2024 12:59:47 09/30/2024 13:49:55 09/30/2024 13:49:55 Transfer Complete 09/30/2024 13:49:55 09/30/2024 13:49:55 09/30/2024 13:49:55 ADDRESS: [address] [place] [id number] PHYS DOC NOTES: MEDICAL INFORMATION: Prescriptions Given: New Medications [facility] [id number], [address], [place] [id number], [phone] acetaminophen-oxycodon e (Percocet 5 mg-325 mg oral tablet) 1 Tablets By Mouth every 6 hours as needed Pain 8-10 for 3 Days. Refills: 0. prochlorperazine (prochlorperazine 5 mg Tab) 1 Tablets By Mouth 3 times a day as needed for nausea/vomiting. Refills: 0. Medications to Continue Taking That Have Changed [facility] [id number], [address], [place] [id number], [phone] START: ondansetron (Zofran ODT 4 mg Tab-Dis) 1 Tablets By Mouth every 8 hours as needed Nausea/Vomiting. Refills: 0. Other Medications START: ondansetron (Zofran 4 mg Tab) 1 Tablets By Mouth every 8 hours as needed Nausea/Vomiting. Refills: 6. Medications to Continue with No Changes Other Medications albuterol (Albuterol (Eqv-ProAir HFA) 90 mcg/inh inhalation aerosol) 2 Puffs Inhalation every 4 hours as needed Wheezing. fluoxetine (Prozac 40 mg Cap) 1 Capsules By Mouth every day. at bedtime. glipiZIDE (glipiZIDE 10 mg Tab) 1 Tablets By Mouth 2 times a day. hydrOXYzine (hydrOXYzine hydrochloride 25 mg Tab) 1 Tablets By Mouth every 6 hours as needed as needed for anxiety. ibuprofen insulin glargine (Lantus 100 units/mL Injection-Insulin) 30 Units Subcutaneous once a day (at bedtime). linaclotide (Linzess 72 mcg oral capsule) 1 Capsules By Mouth every other day for 90 Days. Refills: 0. metoclopramide (Reglan 10 mg Tab) 1 Tablets By Mouth every 6 hours. Refills: 0. peppermint oil (Ibgard 90 mg oral delayed release capsule) 2 Capsules By Mouth 2 times a day as needed abdominal pain/cramps. Refills: 0. polyethylene glycol 3350 (MiraLax) 17 Gram By Mouth 3 times a day. promethazine (Phenergan 25 mg Supp) 1 Suppositories By rectum every 12 hours as needed Nausea/Vomiting. Refills: 6. PATIENT EDUCATION INFORMATION: Instructions: Abdominal Pain, Adult Follow up: With: Address: When: YOSSI CHAVISMichelle [address] [place] [id number] (1Dotted Block In 3 days 10/03/2024 Comments: Call the office of your primary care doctor to arrange for follow-up within the above-stated timeframe. Follow-up with your primary care doctor about this ED visit. You should review your labs, imaging, and diagnoses from this ED visit with your primary care physician. There are occasionally non-emergent findings that require additional follow-up after your ED visit. If you were prescribed medications you should discuss possible side-effects and drug interactions with your pharmacist. Call 911 or go to the nearest Emergency Department if you develop any new or worsening symptoms. Seek immediate medical attention if you develop: worsening abdominal pain, new or worsening nausea, new or worsening vomiting, n (more content not included)... Normal [facility] ED Note-Physicianon 09-30-19 ED Note-Physician ED Note-Physician Basic Information Time Seen: Cameron Conklin DO 09/30/2024 10:54 Chief Complaint py presents with upper abd pain that started yestrday with nausea and history of gastroproresis History of Present Illness 29-year-old female to the emergency department chief complaint of nausea vomiting, upper abdominal pain. She has a history of gastroparesis and reports that the symptoms are similar. She denies any fever, sweats, chills. No diarrhea or change in bowel movements. She reports that she sees GI for this and has been referred to [facility] for surgery. She took Reglan and GI cocktail at home with only minimal relief of symptoms. Review of Systems A 10 point review of systems is negative except as noted above. Medical and Surgical History: Reviewed and noted Social history: Lives at home Tobacco: Denies Physical Exam Vitals & Measurements T: 36.7 ???C(Oral) HR: 97(Peripheral) RR: 18 BP: 153/98 SpO2: 97% HT: 172 cm WT: 112.8 kg BMI: 38.13 VITALS: I have reviewed the triage vital signs. GENERAL: Well developed, well appearing adult in no acute distress. NEURO: Alert and oriented. Moves all extremities. Face is symmetric and expressive. EYES: PERRL. No scleral icterus or conjunctival injection. No discharge. HENT: Normocephalic, atraumatic. Hearing is grossly intact. Nares grossly patent and without discharge. Mucous membranes moist. NECK: No JVD. Patient moves neck without restriction. CARDIO: Rhythm regular. Normal rate. No murmur, rub, or gallop. Pulses equal bilaterally in the upper and lower extremity. No lower extremity edema. PULM: Lungs clear to auscultation in all krishna. No wheezes, rales, or rhonchi. No conversational dyspnea. No splinting, stridor, or accessory muscle use. GI/: Abdomen is soft and non-tender. Normoactive bowel sounds. EXTREMITIES: Symmetric muscle bulk. No joint swelling. No clubbing, cyanosis, or deformity. SKIN: Warm and dry. Normal turgor. No rash or lesions appreciated. PSYCH: Mood, affect, and interaction is appropriate to the setting. Medical Decision Making 29-year-old female to the emergency department chief complaint of upper abdominal pain nausea. Vital stable, the patient is afebrile. Her abdominal examination is benign. Longstanding history of diabetic related gastroparesis. Basic labs ordered. Cocktail of medications as ordered in consultation with the patient. Labwork reviewed and noted. No indication for imaging of her abdomen at this time. Patient felt much improved after medications. She was given a GI cocktail and had a significant reduction in her discomfort. She had no more nausea or vomiting in the department. She believes she is stable for discharge home. Nausea scripts were sent at her request. Pain medication for breakthrough pain should it recur. She has scheduled follow-up with her GI at [facility]. Return precautions were discussed. All questions were answered. The patient was discharged home. 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) Epigastric abdominal pain (R10.13: Epigastric pain) Gastroparesis (K31.84: Gastroparesis) Orders: diphenhydrAMINE, 25 mg = 0.5 mL, Injection, IV Push, Once, Stop date 09/30/24 11:30:00 EST, STAT, Start date 09/30/24 11:30:00 EST, 09/30/24 11:30:00 EST famotidine, 20 mg = 2 mL, Soln-IV, IV Push, Once, Stop date 09/30/24 11:30:00 EST, STAT, Start date 09/30/24 11:30:00 EST, 09/30/24 11:30:00 EST morphine, 4 mg = 1 mL, Injection, IV Push, Once, Stop date 09/30/24 11:29:00 EST, STAT, Start date 09/30/24 11:29:00 EST, 09/30/24 11:29:00 EST ondansetron, 4 mg = 2 mL, Injection, IV Push, Once, Stop date 09/30/24 11:29:00 EST, STAT, Start date 09/30/24 11:29:00 EST, 09/30/24 11:29:00 EST promethazine 25 mg + Sodium Chloride 0.9% intravenous solution 50 mL, Injection, IV Piggyback, Once, Stop date 09/30/24 11:29:00 EST, STAT, Start date 09/30/24 11:29:00 EST, 153 mL/hr, Infuse over 20 minute(s) Sodium Chloride 0.9% intravenous solution 1,000 mL, 1,000 mL, IV, 999 mL/hr, STAT, Start date 09/30/24 11:29:00 EST, 1 hour(s), Total volume (mL): 1,000, 112.8 kg, 2.32, m2 Basic Metabolic Panel Beta hCG Qual CBC w/ Auto Diff ECG 12 Lead Adult ED Cardiac Monitoring eGFR Hepatic Function Panel Lipase Level Saline Lock Insert UA with Cult Rflx Medications Administered Given Sodium Chloride 0.9% IV Deniz 1000 mL 1,000 mL, 1000 mL, IV diphenhydrAMINE 50 mg/mL Inj, 25 mg, IV Push famotidine 10 mg/mL IV Deniz, 20 mg, IV Push morphine 4 mg/mL Inj, 4 mg, IV Push [id number] [F] 25 mg + Sodium Chloride 0.9% IV Deniz 50 mL [F] 50 mL, IV Piggyback Zofran 4 mg/2 mL Injection, 4 mg, IV Push Disposition Plan Patient Discharge Condition Stable Home Discharge Prescription List Prescriptions Percocet 5 mg-325 mg oral tablet, 1 tab(s), Oral, q6hr, PRN prochlorperazine 5 mg Tab, 5 mg= 1 tab(s), Oral, TID, PRN Zofran ODT 4 mg Tab (more content not included)... Normal [facility] Comment on above: Result Comment: Elec tronically Signed By: Cameron Conklin DO\.br\Date and Time Signed: 09/30/24 19:31 EST ED Patient Summaryon 025 ED Patient Summary ED Patient Summary [place] [address] Patient Discharge Instructions Person Information Name: GAEL RUBY Age: 29 Years Arrival Date: 09/30/2024 10:45:13 Discharge Diagnosis: Diabetic gastroparesis; Epigastric abdominal pain; Gastroparesis Primary Care Physician: YOSSI GOLDEN MD Provider Information Primary Provider: Cameron Conklin DO [employer] Processor:None The exam and treatment you received in the Emergency Department were for an urgent problem and are not intended as complete care. It is important that you follow up with a doctor, nurse practitioner, or physician???s secretary administrative assistant for ongoing care. If your symptoms become worse or you do not improve as expected and you are unable to reach your usual health care provider, you should return to the Emergency Department. We are available 24 hours a day. GAEL RUBY has been given the following list of patient education materials, prescriptions and follow-up instructions: Follow-up Instructions: With: Address: When: YOSSI GOLDEN [address], [place] [id number] [facility] (1) In 3 days 10/03/2024 Comments: Call the office of your primary care doctor to arrange for follow-up within the above-stated timeframe. Follow-up with your primary care doctor about this ED visit. You should review your labs, imaging, and diagnoses from this ED visit with your primary care physician. There are occasionally non-emergent findings that require additional follow-up after your ED visit. If you were prescribed medications you should discuss possible side-effects and drug interactions with your pharmacist. Call 911 or go to the nearest Emergency Department if you develop any new or worsening symptoms. Seek immediate medical attention if you develop: worsening abdominal pain, new or worsening nausea, new or worsening vomiting, new or worsening diarrhea, chest pain, shortness of breath, pain with urination, problems urinating, fever, chills, weakness, or any new or worsening symptoms. In the event that this physician does not participate in your insurance network, please consult with your insurance company to find a nearby participating provider. Patient Education Materials: Abdominal Pain, Adult A MESSAGE TO ALL PATIENTS REGARDING OPIOIDS PRESCRIPTION OPIOIDS: WHAT YOU NEED TO KNOW Prescription opioids can be used to help relieve wloylrfb-mx-wsvran pain and are often prescribed following a surgery or injury, or for certain health conditions. These medications can be an important part of the treatment but also come with serious risks. It is important to work with your healthcare provider to make sure you are getting the safest, most effective care. WHAT ARE THE RISKS AND SIDE EFFECTS OF OPIOID USE? Prescription opioids carry serious risks of addiction and overdose, especially with prolonged use. An opioid overdose, often marked by slowed breathing, can cause sudden . The use of prescription opioids can have a number of side effects as well, even when taken as directed: ??? Tolerance???meaning you might need to take more of the medication for the same pain relief ??? Physical dependence???meaning you have symptoms of withdrawal when a medication is stopped ??? Increased sensitivity to pain ??? Constipation ??? Nausea, vomiting, and dry mouth ??? Sleepiness and dizziness ??? Confusion ??? Depression ??? Low levels of testosterone that can result in lower sex drive, energy, and strength ??? Itching and sweating RISKS ARE GREATER WITH: ??? History of drug misuse, substance use disorder, or overdose ??? Mental health conditions (such as depression or anxiety) ??? Sleep apnea ??? Older age (65 years and older) ??? Avoid alcohol while taking prescription opioids. Also, unless specifically advised by your health care provider, medications to avoid include: ??? Benzodiazepines (such as Xanax or Valium) ??? Muscle relaxants (such as Soma or Flexeril) ??? Hypnotics (such as Ambien or Lunesta) ??? Other prescription opioids KNOW YOUR OPTIONS Talk to your health care provider about ways to manage your pain that don???t involve prescription opioids. Some of these options may actually work better and have fewer risks and side effects. Options may include: ??? Pain relievers such as acetaminophen, ibuprofen, and naproxen ??? Some medication that are also used for depression or seizures ??? Physical therapy and exercise ??? Cognitive behavioral therapy, a psychological, goal-directed approach, in which patients learn how to modify physical, behavioral, and emotional triggers of pain and stress. IF YOU ARE PRESCRIBED OPIOIDS FOR PAIN: ??? Never take opioids in greater amounts or more often than prescribed. ??? Follow up with your primary health care provider. o W (more content not included)... Normal [facility] HEMATOLOGYOrdered By: SYSTEM SYSTEM on 09-30-2024 Basophils/100 WBC (Bld) 1.2 % Normal 0.0 - 2.0 % Remisol Heme Basophils/Leukocytes Auto (Bld) [Pure # fraction] 0.1 E9/L Normal 0.0 - 0.2 E9/L Remisol Heme Eosinophils (Bld) [#/Vol] 0.1 E9/L Normal 0.0 - 0.5 E9/L Remisol Heme Eosinophils/100 WBC (Bld) 0.7 % Normal 0.0 - 8.0 % Remisol Heme Erythrocyte distribution width (RBC) [Ratio] 14.9 % High 10.9 - 14.2 % Remisol Heme Hematocrit (Bld) [Volume fraction] 46.6 % High 34.0 - 46.0 % Remisol Heme Hemoglobin (Bld) [Mass/Vol] 15.9 g/dL Normal 12.0 - 16.0 gm/dL Rem[facility] Heme Lymphocytes (Bld) [#/Vol] 3.2 E9/L Normal 1.0 - 4.0 E9/L Remisol Heme Lymphocytes/100 WBC (Bld) 29.7 % Normal 14.0 - 50.0 % Remisol Heme MCH (RBC) [Entitic mass] 29.3 pg Normal 27.0 - 34.0 pg Remisol Heme MCHC (RBC) [Mass/Vol] 34.1 g/dL Normal 31.4 - 36.0 gm/dL Remisol Heme MCV (RBC) [Entitic vol] 85.8 fL Normal 80.0 - 100.0 fL Remisol Heme Monocytes (Bld) [#/Vol] 0.5 E9/L Normal 0.2 - 1.0 E9/L Remisol Heme Monocytes/100 WBC (Bld) 5.0 % Normal 4.0 - 14.0 % Remisol Heme Neutrophils (Bld) [#/Vol] 6.9 E9/L Normal 2.0 - 7.5 E9/L Rem[facility] Heme Neutrophils/100 WBC (Bld) 63.4 % Normal 36.0 - 75.0 % Rem[facility] Heme Platelet mean volume (Bld) [Entitic vol] 8.6 fL Normal 6.4 - 10.8 fL [facility] Heme Platelets (Bld) [#/Vol] 311.0 E9/L Normal 150.0 - 500.0 E9/L [facility] Heme RBC (Bld) [#/Vol] 5.4 E12/L Normal 4.3 - 5.9 E12/L [facility] WBC corrected for nucl RBC Auto (Bld) [#/Vol] 10.9 E9/L Normal 4.0 - 11.0 E9/L [facility] Hemoglobin A1Con 09-30-2024 Average glucose Estimated from glycated hemoglobin (Bld) [Mass/Vol] 183 mg/dL [facility] Comment on above: The ADA and AACC rec ommend providing the estimated average glucose result to permit better patient understanding of their HBA1c result. HbA1c (Bld) [Mass fraction] 8.0 % High 4.0 - 6.0 % [facility] Interpretation and review of laboratory results Abnormal [facility] Glucose [Mass/Vol] 183 mg/dL Normal [facility] Comment on above: Result Comment: The ADA and AACC recommend providing the estimated average glucose result to permit better patient understanding of their HBA1c result. Performed By: #### T SH ####[facility] [place] [address] lab Director: Murtaza Arceo MD#### LIPR, GLYHGB ####[place] [address] [place], [place] [id number] Lab Director: Rishabh Mendieta MD HbA1c (Bld) [Mass fraction] 8.0 % High 4.0-6.0 [facility] Comment on above: Performed By: #### T ####[facility] [place], [place] [id number] lab Director: Murtaza Arceo MD#### LIPR, GLYHGB ####[place] [address] [place], [place] [id number] lab Director: Rishabh Mendieta MD Hep Func Panelon 09-30-2024 Albumin [Mass/Vol] 4.6 g/dL Normal 3.3-5.0 [facility] Comment on above: Performed By: #### 2 [id number] #### [facility] [address] [place] [address] Albumin/Globulin (S) [Mass conc ratio] 1.4 Normal 1.1-2.2 [facility] Comment on above: Performed By: #### 2 [id number] #### [facility] [address] [place] [address] ALP [Catalytic activity/Vol] 98 Int._Unit/L Normal 21-98 [facility] Comment on above: Performed By: #### 2 [id number] #### [facility] [address] [place] [address] ALT No additional P-5'-P [Catalytic activity/Vol] 35 Int._Unit/L Normal 6-46 [facility] Comment on above: Performed By: #### 2 [id number] #### [facility] [address] [place] [address] AST [Catalytic activity/Vol] 48 Int._Unit/L High 5-43 [facility] Comment on above: Performed By: #### 2 [id number] #### [facility] [address] [place] [address] Bilirubin [Mass/Vol] 0.7 mg/dL Normal 0.0-1.1 [facility] Comment on above: Performed By: #### 2 [id number] #### [facility] [address] [place] [address] Bilirubin.direct [Mass/Vol] 0.1 mg/dL Normal 0.0-0.4 [facility] Comment on above: Performed By: #### 2 [id number] #### [facility] [address] [place] [address] Bilirubin.indirect [Mass or moles/Vol] 0.6 mg/dL Normal 0.1-0.9 [facility] Comment on above: Performed By: #### 2 [id number] #### [facility] [address] [place] [address] Globulin (S) [Mass/Vol] 3.3 g/dL Normal 1.4-4.0 [facility] Comment on above: Performed By: #### 2 [id number] #### [facility] [address] [place] [address] Protein [Mass/Vol] 7.9 g/dL High 6.0-7.8 [facility] Comment on above: Performed By: #### 2 [id number] #### [facility] [address] [place] [address] Lipase Levelon 09-30-2024 Lipase [Catalytic activity/Vol] 93 U/L High 13-58 [facility] Comment on above: Performed By: #### 2 [id number] #### [facility] [address] [place] [address] Lipid Panelon 09-30-2024 Cholesterol [Mass/Vol] 233 mg/dL High 0 - 1 99 mg/dL [facility] [employer] Comment on above: Cholesterol Guidelines: <200 Desirable 200-240 Borderline >240 Undesirable Cholesterol in HDL [Mass/Vol] 40 mg/dL Low 40 - PINF mg/dL [facility] Comment on above: HDL Guidelines: <40 Undesirable 40-59 Borderline >59 Desirable Cholesterol in LDL [Mass/Vol] 132 mg/dL High 0 - 100 mg/dL [facility] Comment on above: LDL Guidelines: <100 Desirable 100-129 Near to/above Desirable 130-159 Borderline >159 Undesirable Direct (measured) LDL and calculated LDL are not interchangeable tests. Cholesterol in VLDL [Mass/Vol] 61 mg/dL High 1 - 30 mg/dL [facility] Cholesterol.total/Chol esterol in HDL [Mass ratio] 5.8 {ratio} [facility] Interpretation and review of laboratory results Abnormal [facility] Triglyceride [Mass/Vol] 307 mg/dL High NINF - 150 mg/dL [facility] Comment on above: Triglyceride Guidelines: <150 Desirable 150-199 Borderline 200-499 High >499 Very high Based on AHA Guidelines for fasting triglyceride, June 2012. [facility] Lipid Profileon 09-30-2024 Cholesterol [Mass/Vol] 233 mg/dL High 0-199 [facility] Comment on above: Result Comment: Chol esterol Guidelines: <200 Desirable 200-240 Borderline >240 Undesirable Performed By: #### T SH ####[address] [place] [id number] [facility] Director: Murtaza Arceo MD#### LIPMichelle, GLYHGB ####[place] [id number] [facility] Director: Rishabh Mendieta MD Cholesterol in HDL [Mass/Vol] 40 mg/dL Low >40 [facility] Comment on above: Result Comment: HDL Guidelines: <40 Undesirable 40-59 Borderline >59 Desirable Performed By: #### T SH ####[address] [place] [id number] [facility] Director: Murtaza Arceo MD#### LIPR, GLYHGB ####[place] [address] [place] [id number] Lab Director: Rishabh Mendieta MD Cholesterol in LDL [Mass/Vol] 132 mg/dL High 0-100 [facility] Comment on above: Result Comment: LDL Guidelines: <100 Desirable 100-129 Near to/above Desirable 130-159 Borderline >159 UndesirableDirect (measured) LDL and calculated LDL are not interchangeable tests. Performed By: #### T SH ####[facility] [place] [address] Lab Director: Murtaza Arceo MD#### LIPR, GLYHGB ####[facility] [place] [address] Lab Director: Rishabh Mendieta MD Cholesterol in VLDL [Mass/Vol] 61 mg/dL High 1-30 [facility] Comment on above: Performed By: #### T SH ####[facility] [place] [address] Lab Director: Murtaza Arceo MD#### LIPMichelle, GLYHGB ####[place] [address] [place] [address] Lab Director: Rishabh Mendieta MD Cholesterol.total/Chol esterol in HDL [Mass ratio] 5.8 {ratio} Normal [facility] Comment on above: Performed By: #### T SH ####[address] [place] [address] Lab Director: Murtaza Arceo MD#### LIPMichelle, GLYHGB ####[facility] [place] [address] Lab Director: Rishabh Mendieta MD Triglyceride [Mass/Vol] 307 mg/dL High <150 [facility] Comment on above: Result Comment: Trig lyceride Guidelines: <150 Desirable 150- 199 Borderline 200-499 High >499 Very high Based on AHA Guidelines for fasting triglyceride, June 2012. Performed By: #### T SH ####[address] [place] [address] Lab Director: Murtaza Arceo MD#### LIPR, GLYHGB ####[facility] [place] [address] Lab Director: Rishabh Mendieta MD SEROLOGYOrdered By: Samantha briones on 09-30-2024 Beta HCG ( test) Ql Negative (09/30/24 11:20 AM) Normal [facility] Man Sero TSHon 09-30-2024 TSH Qn 0.57 m[IU]/L [facility] Thyroid Stim. Horm.on 2024 Thyroid Stim. Horm. 0.57 uIU/mL Normal 0.27-4.20 [facility] Comment on above: Performed By: #### T SH ####[facility] [place], [place] [address] lab Director: Murtaza Arceo MD#### LISA GLYHGB ####[facility] [place], [place] [address] lab Director: Rishabh Mendieta MD UA with Cult Rflxon 09-30-19 25 Bilirubin Ql (U) Negative Normal Negative [facility] Comment on above: Performed By: #### 4 [id number] #### [facility] [address] [place] [address] Clarity (U) Turbid Abnormal Clear [facility] Comment on above: Performed By: #### 4 [id number] #### [facility] [address] [place] [address] Color (U) Colorless Abnormal Yellow [facility] Comment on above: Result Comment: Micr oscopic readings are only performed on those samples that meet specific criteria set forth by [facility]. Performed By: #### 4 [id number] #### [facility] [address] [place] [address] Epithelial cells.squamous Auto (Urine sed) [#/Area] 0-2 Invalid Interpretation Code [facility] Comment on above: Performed By: #### 4 [id number] #### [facility] [address] [place] [address] Glucose Ql (U) 4+ mg/dL Abnormal Negative [facility] Comment on above: Performed By: #### 4 [id number] #### [facility] [address] [place] [address] Hemoglobin Auto test strip (U) [Mass/Vol] Negative Normal Negative [facility] Comment on above: Performed By: #### 4 [id number] #### [facility] [address] [place] [address] Ketones Auto test strip Ql (U) Negative Normal Negative [facility] Comment on above: Performed By: #### 4 [id number] #### [facility] [address] [place] [address] Leukocyte esterase Auto test strip Ql (U) Negative Normal Negative [facility] Comment on above: Performed By: #### 4 [id number] #### [facility] [address] [place] [address] Mucus Auto Ql (U) Negative Normal Negative [facility] Comment on above: Performed By: #### 4 [id number] #### [facility] [address] [place] [address] Nitrite Auto test strip Ql (U) Negative Normal Negative [facility] Comment on above: Performed By: #### 4 [id number] #### [facility] [address] [place] [address] pH (U) 5.5 [pH] Invalid Interpretation Code 5.0-9.0 [facility] Comment on above: Performed By: #### 4 [id number] #### [facility] [address] [place] [address] Protein Ql (U) Negative Normal Negative [facility] Comment on above: Performed By: #### 4 [id number] #### [facility] [address] [place] [address] RBC Ql (U) 0-3 Normal 0-3 [facility] Comment on above: Performed By: #### 4 [id number] #### [facility] [address] [place] [address] Specific gravity (U) [Rel density] 1.039 Invalid Interpretation Code 1.005-1.030 [facility] Comment on above: Performed By: #### 4 [id number] #### [facility] [address] [place] [address] Urobilinogen (U) [Mass/Vol] Negative Normal Negative [facility] Comment on above: Performed By: #### 4 [id number] #### [facility] [address] [place] [address] WBC Auto (Urine sed) [#/Area] 0-5 Normal 0-5 [facility] Comment on above: Performed By: #### 4 [id number] #### [facility] [address] [place] [address] Type of Urine collection method Clean Catch Normal [facility] Comment on above: Performed By: #### 4 [id number] #### [facility] [address] [place] [address] URINALYSISOrdered By: SYSTEM SYSTEM on 09-30-2024 Bilirubin Ql (U) Negative Normal Negativemg/ dL [facility] UA Auto SS Clarity (U) Turbid *ABN* (09/30/24 12:30 PM) Invalid Interpretation Code Clear [facility] UA Auto SS Color (U) Colorless 1 *ABN* (09/30/24 12:30 PM) Invalid Interpretation Code Yellow [facility] UA Auto SS Comment on above: Interpretive Data: M icroscopic readings are only performed on those samples that meet specific criteria set forth by [facility]. Epithelial cells.squamous Auto (Urine sed) [#/Area] 0-2 graded/HPF Invalid Interpretation Code [facility] UA Auto SS Glucose Ql (U) 4+ mg/dL Invalid Interpretation Code Negativemg/ dL [facility] UA Auto SS Hemoglobin Auto test strip (U) [Mass/Vol] Negative Normal Negativemg/ dL [facility] UA Auto SS Ketones Auto test strip Ql (U) Negative Normal Negativemg/ dL [facility] UA Auto SS Leukocyte esterase Auto test strip Ql (U) Negative Normal NegativeLeu /uL [facility] UA Auto SS Mucus Auto Ql (U) Negative Normal Negativegr a ded/LPF [facility] UA Auto SS Nitrite Auto test strip Ql (U) Negative Normal Negativemg/ dL [facility] UA Auto SS pH (U) 5.5 *NA* (09/30/24 12:30 PM) Invalid Interpretation Code 5.0 - 9.0 [facility] UA Auto SS Protein Ql (U) Negative Normal Negativemg/ dL [facility] UA Auto SS RBC Ql (U) 0-3 graded/HPF Normal 0-3graded/H PF [facility] UA Auto SS Specific gravity (U) [Rel density] 1.039 *NA* (09/30/24 12:30 PM) Invalid Interpretation Code 1.005 - 1.030 [facility] UA Auto SS Urobilinogen (U) [Mass/Vol] Negative Normal Negativemg/ dL [facility] UA Auto SS WBC Auto (Urine sed) [#/Area] 0-5 graded/HPF Normal 0-5graded/H PF [facility] UA Auto SS URINALYSISOrdered By: Cameron Conklin on 09-30-2024 UA Spec Desc Clean Catch (09/30/24 12:30 PM) Normal [facility] UA Auto SS eGFRon 09-30-2024 eGFR 101 mL/min/1.73 m2 Normal >=59 [facility] Comment on above: Performed By: #### 1 [id number] #### [facility] [address] [place] [address] [facility] 09-24-2024 CNPN Telephone (GASTSP) GAEL RUBY ([id number]) 1995 F Date Time Provider Department 09/24/24 YAJAIRA LACKEY GAST During your visit today, we recorded the following information about you: Abel Beckwith 09/24/2024 1:34 PM Signed ----- Message from Anne Cavazos sent at 09/21/2024 10:38 AM EST ----- Regarding: Gastroparesis Good morning, We received a referral for patient to be seen in Gastroenterology for Gastroparesis. Referring provider is Aly Beverly. Best contact info is [phone]. Thank you, Abel Rogel 09/24/2024 1:35 PM Signed GI records in scanned docs No GES/allergic to Egg Intake needed Nancy Del Valle 09/24/2024 1:43 PM Signed Gastric Emptying Study? Yes Oatmeal (Pt allergic to egg, documentation in scanned docs) Has the patient had a Smart Pill? No When was your last EGD? 2023 Has the patient had Gastric Bypass? No Has the patient had a Gastric Sleeve? No Has the patient had a Kylie or Hiatal Hernia Repair? No Gallbladder: 2019 Hysterectomy: 2021 Has the patient had POP/Pyloroplasty? No Is the patient currently on TPN? No Does the patient have a G/J Tube? No Do you have at least 3 bowel movements a week? Yes Referring Provider: Yajaira Andujar DO 09/24/2024 3:36 PM Signed ME AND SURGERY, EGG is in Yajaira Lackey DO 09/24/2024 3:36 PM Signed Addended by: YAJAIRA LACKEY on: 09/24/2024 03:36 PM Modules accepted: Orders Nancy Del Valle 09/25/2024 7:56 AM Signed Left VM for patient to call office to schedule apts. Dorothea Serrano 09/28/2024 9:54 AM Signed Patient returned call to schedule Nancy Del Valle 09/29/2024 3:07 PM Signed Patient is scheduled Allergies As of Date: 09/24/2024 (Not on File) Date Reviewed: Never Reviewed Reason for Visit: Appointment [186] Primary Visit Diagnosis:Gastroparesi s [K31.84] Order(s):EGG (ELECTROGASTROGRAPHY) [[id number]] Order #: [id number] Problem List As Of Date: 09/24/2024 (None) Encounter Status:Closed by ABEL BECKWITH on 09/24/24 [facility] Anion gap [Moles/Vol] 14 mmol/L 9 - 16 mmol/L [facility] Calcium [Mass/Vol] 10.1 mg/dL 8.6 - 10. 4 mg/dL [facility] Chloride [Moles/Vol] 102 mmol/L 98 - 10 7 mmol/L [facility] CO2 [Moles/Vol] 24 mmol/L 20 - 31 mmol/L [facility] Creatinine [Mass/Vol] 0.8 mg/dL 0.50 - 0.90 mg/dL [facility] Amarilis Bailey Rate - PINF [facility] Comment on above: These results are not [...] that affects renal tubular secretion. Glucose [Mass/Vol] 197 mg/dL High 74 - 99 mg/dL [facility] Potassium [Moles/Vol] 4.4 mmol/L 3.7 - 5.3 mmol/L [facility] Sodium [Moles/Vol] 140 mmol/L 136 - 145 mmol/L [facility] Urea nitrogen [Mass/Vol] 12 mg/dL 6 - 20 mg/dL [facility] Urea nitrogen/Creatinine [Mass ratio] 15 mg/mg 9 - 20 [facility] Basic Metabolic Profon 09-17 Anion gap [Moles/Vol] 14 mmol/L Normal 9-16 [facility] Comment on above: Performed By: #### C DP, BMP, LIP, LIVP ####[facility] , [id number] lab Director: Murtaza Arceo MD BUN/CRE Ratio 15 Normal 9-20 [facility] Comment on above: Performed By: #### C DP, BMP, LIP, LIVP ####[facility] [place] [address] lab Director: Murtaza Arceo MD Calcium [Mass/Vol] 10.1 mg/dL Normal 8.6-10.4 [facility] Comment on above: Performed By: #### C DP, BMP, LIP, LIVP ####[facility] , [place] [id number] Lab Director: Murtaza Arceo MD Chloride [Moles/Vol] 102 mmol/L Normal 98-107 [facility] Comment on above: Performed By: #### C DP, BMP, LIP, LIVP ####[facility] , [place] [id number] lab Director: Murtaza Arceo MD CO2 [Moles/Vol] 24 mmol/L Normal 20-31 [facility] Comment on above: Performed By: #### C DP, BMP, LIP, LIVP ####[facility] , [place] 0977383 lab Director: Murtaza Arceo MD Creatinine [Mass/Vol] 0.8 mg/dL Normal 0.50-0.90 [facility] Comment on above: Performed By: #### C DP, BMP, LIP, LIVP ####[address] , [place] [id number] lab Director: Murtaza Arceo MD GFR/1.73 sq M.predicted among non-blacks MDRD (S/P/Bld) [Vol rate/Area] mL/min/{1.73_m2} Normal >60 [facility] Comment on above: Result Comment: Thes [...] secretion. Performed By: #### C DP, BMP, LIP, LIVP ####[facility] , [place] [id number] lab Director: Muratza Arceo MD Glucose [Mass/Vol] 197 mg/dL High 74-99 [facility] Comment on above: Performed By: #### C DP, BMP, LIP, LIVP ####[facility] , [place] 63035[address] Lab Director: Murtaza Arceo MD Potassium [Moles/Vol] 4.4 mmol/L Normal 3.7-5.3 [facility] Comment on above: Performed By: #### C DP, BMP, LIP, LIVP ####[facility] , [place] 3577[address] lab Director: Murtaza Arceo MD Sodium [Moles/Vol] 140 mmol/L Normal 136-145 [facility] Comment on above: Performed By: #### C DP, BMP, LIP, LIVP ####[facility] , [place] [id number] Lab Director: uMrtaza Arceo MD Urea nitrogen [Mass/Vol] 12 mg/dL Normal 6-20 [facility] Comment on above: Performed By: #### C DP, BMP, LIP, LIVP ####[facility] , [place] [address] lab Director: Murtaza Arceo MD CBC with Auto Differentialon 09-17-2024 Basophils (Bld) [#/Vol] 0.06 10*3/uL [facility] Basophils/100 WBC (Bld) 1 % 0 - 2 % [facility] Eosinophils (Bld) [#/Vol] 0.14 10*3/uL [facility] Eosinophils/100 WBC (Bld) 1 % 1 - 4 % [facility] Erythrocyte distribution width (RBC) [Ratio] 13.3 % 11.8 - 14.4 % [facility] Hematocrit (Bld) [Volume fraction] 45.3 % 36.3 - 47.1 % [facility] Hemoglobin (Bld) [Mass/Vol] 14.8 g/dL 11.9 - 15.1 g/dL [facility] Immature granulocytes (Bld) [#/Vol] 0.06 10*3/uL [facility] Immature granulocytes/100 WBC (Bld) 1 % High 0 [facility] Interpretation and review of laboratory results Abnormal [facility] Lymphocytes/100 WBC (Bld) 31 % 24 - 43 % [facility] Lymphocytes/100 WBC (Bld) 3.77 % High [facility] MCH (RBC) [Entitic mass] 28.4 pg 25.2 - 33.5 pg [facility] MCHC (RBC) [Mass/Vol] 32.7 g/dL 28.4 - 34.8 g/dL [facility] MCV (RBC) [Entitic vol] 86.9 fL 82.6 - 102.9 fL [facility] Monocytes/100 WBC (Bld) 5 % 3 - 12 % [facility] Monocytes/100 WBC (Bld) 0.59 % [facility] Neutrophils/100 WBC (Bld) 61 % 36 - 65 % [facility] Nucleated RBC/100 WBC (Bld) [Ratio] 0.0 % 0.0 per 100 WBC [facility] Platelet mean volume (Bld) [Entitic vol] 10.3 fL 8.1 - 13.5 fL [facility] Platelets (Bld) [#/Vol] 337 10*3/uL [facility] RBC (Bld) [#/Vol] 5.21 10*6/uL High 3.95 - 5.1 1 m/uL [facility] Segmented neutrophils/100 WBC (Bld) 7.45 % [facility] WBC other (Bld) [#/Vol] 12.1 High [facility] CBC with Diffon 09-17-2024 Abs. Basophil 0.06 k/uL Normal 0.00-0.20 [facility] Comment on above: Performed By: #### C DP, BMP, LIP, LIVP ####[facility] [place] [address] [facility] Director: Murtaza Arceo MD Abs.Imm.Granulocyte 0.06 k/uL Normal 0.00-0.30 [facility] Comment on above: Performed By: #### C DP, BMP, LIP, LIVP ####[address] , [place] [address])[phone] Director: Murtaza Arceo MD Abs.Neutrophil (Seg) 7.45 k/uL Normal 1.50-8.10 [facility] Comment on above: Performed By: #### C DP, BMP, LIP, LIVP ####[address] [place] [address] Lab Director: Murtaza Arceo MD Basophils/100 WBC (Bld) 1 % Normal 0-2 [facility] Comment on above: Performed By: #### C DP, BMP, LIP, LIVP ####[address] [place] [address] Lab Director: Murtaza Arceo MD Eosinophils (Bld) [#/Vol] 0.14 10*3/uL Normal 0.00-0.44 [facility] Comment on above: Performed By: #### C DP, BMP, LIP, LIVP ####[address] , [facility]83 Lab Director: Murtaza Arceo MD Eosinophils/100 WBC (Bld) 1 % Normal 1-4 [facility] Comment on above: Performed By: #### C DP, BMP, LIP, LIVP ####[address] , [facility]83[facility])[phone] Director: Murtaza Arceo MD Erythrocyte distribution width (RBC) [Ratio] 13.3 % Normal 11.8-14.4 [facility] Comment on above: Performed By: #### C DP, BMP, LIP, LIVP ####[address] , [facility] Lab Director: Murtaza Arceo MD Hematocrit (Bld) [Volume fraction] 45.3 % Normal 36.3-47.1 [facility] Comment on above: Performed By: #### C DP, BMP, LIP, LIVP ####[address] [place] [address] Lab Director: Murtaza Arceo MD Hemoglobin (Bld) [Mass/Vol] 14.8 g/dL Normal 11.9-15.1 [facility] Comment on above: Performed By: #### C DP, BMP, LIP, LIVP ####[address] , [place] 88[address] Lab Director: Murtaza Arceo MD Immature granulocytes/100 WBC (Bld) 1 % High 0 [facility] Comment on above: Performed By: #### C DP, BMP, LIP, LIVP ####[address] , [place] 7[address]83 Lab Director: Murtaza Arceo MD Lymphocytes (Bld) [#/Vol] 3.77 10*3/uL High 1.10-3.70 [facility] Comment on above: Performed By: #### C DP, BMP, LIP, LIVP ####[address] , [place] 5680383 Lab Director: Murtaza Arceo MD Lymphocytes/100 WBC (Bld) 31 % Normal 24-43 [facility] Comment on above: Performed By: #### C DP, BMP, LIP, LIVP ####[address] , [place] 3753983 Lab Director: Murtaza Arceo MD MCH (RBC) [Entitic mass] 28.4 pg Normal 25.2-33.5 [facility] Comment on above: Performed By: #### C DP, BMP, LIP, LIVP ####[address] , [place] 8205[address] Lab Director: Murtaza Arceo MD MCHC (RBC) [Mass/Vol] 32.7 g/dL Normal 28.4-34.8 [facility] Comment on above: Performed By: #### C DP, BMP, LIP, LIVP ####[address] [place] [address] Lab Director: Murtaza Arceo MD MCV (RBC) [Entitic vol] 86.9 fL Normal 82.6-102.9 [facility] Comment on above: Performed By: #### C DP, BMP, LIP, LIVP ####[address] [place] [address] Lab Director: Murtaza Arceo MD Monocytes (Bld) [#/Vol] 0.59 10*3/uL Normal 0.10-1.20 [facility] Comment on above: Performed By: #### C DP, BMP, LIP, LIVP ####[address] , [facility]83[facility])[phone] Director: Murtaza Arceo MD Monocytes/100 WBC (Bld) 5 % Normal 3-12 [facility] Comment on above: Performed By: #### C DP, BMP, LIP, LIVP ####[address] [place] [address] Lab Director: Murtaza Arceo MD Neutrophil (Seg) 61 % Normal 36-65 [facility] Comment on above: Performed By: #### C DP, BMP, LIP, LIVP ####[address] [place] [address] Lab Director: Murtaza Arceo MD NRBC Automated 0.0 per 100 WBC Normal 0.0 [facility] Comment on above: Performed By: #### C DP, BMP, LIP, LIVP ####[address] , [place] 3198383 Lab Director: Murtaza Arceo MD Platelet mean volume (Bld) [Entitic vol] 10.3 fL Normal 8.1-13.5 [facility] Comment on above: Performed By: #### C DP, BMP, LIP, LIVP ####[facility] , [place] 8[address]83 Lab Director: Murtaza Arceo MD Platelets (Bld) [#/Vol] 337 10*3/uL Normal 138-453 [facility] Comment on above: Performed By: #### C DP, BMP, LIP, LIVP ####[facility] , [place] 9738783 Lab Director: Murtaza Arceo MD RBC (Bld) [#/Vol] 5.21 10*6/uL High 3.95-5.11 [facility] Comment on above: Performed By: #### C DP, BMP, LIP, LIVP ####[address] , [place] 1877[address] Lab Director: Murtaza Arceo MD WBC (Bld) [#/Vol] 12.1 10*3/uL High 3.5-11.3 [facility] Comment on above: Performed By: #### C DP, BMP, LIP, LIVP ####[address] , [place] 74[address]83 lab Director: Murtaza Arceo MD Hepatic Function Panelon Albumin [Mass/Vol] 4.4 g/dL 3.5 - 5.2 g/dL [facility] Albumin/Globulin [Mass ratio] 1.3 {ratio} 1.0 - 2.5 [facility] ALP [Catalytic activity/Vol] 105 U/L High 35 - 104 U/L [facility] ALT [Catalytic activity/Vol] 31 U/L 10 - 35 U/L [facility] AST [Catalytic activity/Vol] 27 U/L 10 - 35 U/L [facility] Bilirubin [Mass/Vol] 0.3 mg/dL 0.00 - 1.20 mg/dL [facility] Bilirubin.direct [Mass/Vol] mg/dL 0.00 - 0.30 mg/dL [facility] Bilirubin.indirect [Mass/Vol] Can not be calculated 0.0 - 1.0 mg/dL [facility] Protein [Mass/Vol] 7.6 g/dL 6.6 - 8.7 g/dL [facility] Lipaseon 09-17-2024 Lipase [Catalytic activity/Vol] 64 U/L High 13 - 60 U/L [facility] Lipase [Catalytic activity/Vol] 64 U/L High 13-60 [facility] Comment on above: Performed By: #### C DP, BMP, LIP, LIVP ####[address] , [place] 60[address] Lab Director: Murtaza Arceo MD Liver Profileon 09-17-2024 Albumin [Mass/Vol] 4.4 g/dL Normal 3.5-5.2 [facility] Comment on above: Performed By: #### C DP, BMP, LIP, LIVP ####[address] , [place] 8497[address] Lab Director: Murtaza Arceo MD Albumin/Glob Ratio 1.3 Normal 1.0-2.5 [facility] Comment on above: Performed By: #### C DP, BMP, LIP, LIVP ####[address] , [place] 8267[address] Lab Director: Murtaza Arceo MD Alkaline Phos 105 U/L High 35-104 [facility] Comment on above: Performed By: #### C DP, BMP, LIP, LIVP ####[address] , [place] 3978[address] Lab Director: Murtaza Arceo MD ALT [Catalytic activity/Vol] 31 U/L Normal 10-35 [facility] Comment on above: Performed By: #### C DP, BMP, LIP, LIVP ####[address] , [place] 5596[address] Lab Director: Murtaza Arceo MD AST [Catalytic activity/Vol] 27 U/L Normal 10-35 [facility] Comment on above: Performed By: #### C DP, BMP, LIP, LIVP ####[facility] , [place] 4[address] lab Director: Murtaza Arceo MD Bilirubin [Mass/Vol] 0.3 mg/dL Normal 0.00-1.20 [facility] Comment on above: Performed By: #### C DP, BMP, LIP, LIVP ####[facility] , [place] 6505[address] lab Director: Murtaza Arceo MD Bilirubin, Indirect Can not be calculated Normal 0.0-1 .0 [facility] Comment on above: Performed By: #### C DP, BMP, LIP, LIVP ####[address] , [place] 9350783 Lab Director: Murtaza Arceo MD Bilirubin.indirect [Mass/Vol] mg/dL Normal 0.00-0.30 [facility] Comment on above: Performed By: #### C DP, BMP, LIP, LIVP ####[address] , [place] 3714[address] Lab Director: Murtaza Arceo MD Protein [Mass/Vol] 7.6 g/dL Normal 6.6-8.7 [facility] Comment on above: Performed By: #### C DP, BMP, LIP, LIVP ####[address] , [place] 54[address] Lab Director: Murtaza Arceo MD Microscopic Urinalysison Epithelial cells LM.HPF (Urine sed) [#/Area] [address] TO [address] [facility] RBC LM.HPF (Urine sed) [#/Area] None [facility] WBC LM.HPF (Urine sed) [#/Area] 0 TO 2 [facility] Health [facility] No Panel Informationon 09-17 Interpretation and review of laboratory results Abnormal [facility] UA w/Reflex Cultureon 2023 Bilirubin, SemiQt,Ur Negative Normal NEG [facility] Comment on above: Performed By: #### U AX, UMICAO ####[facility] , [place] [address] [facility] Director: Murtaza Arceo MD Blood, Urine Negative Normal NEG [facility] Comment on above: Performed By: #### U AX, UMICAO ####[address] [place] [address] lab Director: Murtaza Arceo MD Clarity (U) Clear Normal CLEAR [facility] Comment on above: Performed By: #### U AX, UMICAO ####[address] , [place] 17[address] [facility] Director: Murtaza Arceo MD Color (U) Yellow Normal YEL [facility] Comment on above: Performed By: #### U AX, UMICAO ####[address] , [place] 250[address] lab Director: Murtaza Arceo MD Glucose Ql (U) 3+ mg/dL Abnormal NEG [facility] Comment on above: Performed By: #### U AX, UMICAO ####[address] , [place] 12[address] lab Director: Murtaza Arceo MD Ketones Ql (U) Negative Normal NEG [facility] Comment on above: Performed By: #### U AX, UMICAO ####[address] , [place] 9[address]83 lab Director: Murtaza Arceo MD Leukocyte esterase Test strip Ql (U) Negative Normal NEG [facility] Comment on above: Performed By: #### U AX, UMICAO ####[address] [place] [address] Lab Director: Murtaza Arceo MD Nitrite,Ur Negative Normal NEG [facility] Comment on above: Performed By: #### U AX, UMICAO ####[address] [place] [address] Lab Director: Murtaza Arceo MD PH,Ur 6.0 Normal 5.0-9.0 [facility] Comment on above: Performed By: #### U AX, UMICAO ####[address] [place] [address] Lab Director: Murtaza Arceo MD Protein Ql (U) Negative Normal NEG [facility] Comment on above: Performed By: #### U AX UMICAO ####[address] [place] [address] [facility] Director: Murtaza Arceo MD Spec. [place],Ur 1.015 Normal 1.010-1.020 [facility] Comment on above: Performed By: #### U AX, UMICAO ####[address] [place] [address] Lab Director: Murtaza Arceo MD Urobilinogen,Ur Normal Normal 0.0-1.0 [facility] Comment on above: Performed By: #### U AX, UMICAO ####[address] [place] [address] Lab Director: Murtaza Arceo MD Urinalysis with Reflex to Cu ltureon 09-17-2024 Bilirubin Ql (U) Negative NEGATIVE [facility] Clarity (U) Clear Clear [facility] Color (U) Yellow Yellow [facility] Glucose Test strip (U) [Mass/Vol] 3+ Abnormal NEGATIVE mg/dL [facility] Hemoglobin Auto test strip Ql (U) Negative NEGATIVE [facility] Interpretation and review of laboratory results Abnormal [facility] Ketones (U) [Mass/Vol] Negative NEGAT SIMA mg/dL [facility] Leukocyte esterase Test strip Ql (U) Negative NEGATIVE [facility] Nitrite Ql (U) Negative NEGATIVE [facility] pH (U) 6.0 [pH] 5.0 - 9.0 [facility] Protein (U) [Mass/Vol] Negative NEGAT SIMA mg/dL [facility] Specific gravity (U) [Rel density] 1.015 1.010 - 1.020 [facility] Urobilinogen Qn (U) Normal 0.0 - 1. 0 EU/dL [facility] Urinalysis,Microon 4 Epithelial cells LM Ql (Urine sed) 0 TO 2 Normal 0-25 [facility] Comment on above: Performed By: #### U AXCHEYICAO ####[facility] [place] [address] lab Director: Murtaza Acreo MD Urine RBC's None Normal 0-2 [facility] Comment on above: Performed By: #### U AXCINDYO ####[address] [place] [address] lab Director: Murtaza Arceo MD Urine WBC's 0 TO 2 Normal 0-5 [facility] Comment on above: Performed By: #### U AXCHEYICAO ####[facility] , [facility] lab Director: Murtaza Arceo MD Ambulatory Visit Summaryon 1 11-11-2023 Ambulatory Visit Summary Ambulatory Visit Summary GAEL RUBY :1995 Visit Date:09/10/2024 Ambulatory Visit Instructions Your Diagnosis Gastroparesis Chronic constipation Dysphagia Abdominal pain Fatty liver History of morbid obesity Your Care Team Attending Physician - Beto GREWAL, Aly Whitten Primary Care Physician - YOSSI GOLDEN MD This Is Your Medications List Contact prescribing physician if questions or concerns albuterol (Albuterol (Eqv-ProAir HFA) 90 mcg/inh inhalation aerosol) fluoxetine (Prozac 40 mg Cap) glipiZIDE (glipiZIDE 10 mg Tab) hydrOXYzine (hydrOXYzine hydrochloride 25 mg Tab) ibuprofen insulin glargine (Lantus 100 units/mL Injection-Insulin) linaclotide (Linzess 72 mcg oral capsule) metoclopramide (Reglan 10 mg Tab) ondansetron (Zofran 4 mg Tab) peppermint oil (Ibgard 90 mg oral delayed release capsule) polyethylene glycol 3350 (MiraLax) promethazine (Phenergan 25 mg Supp) Procedures Performed Esophagogastroduodenos copy (09/02/2024), section (2017), section (2015), Bilateral oophorectomy, section, Cholecystectomy, Extraction of wisdom tooth, Laparoscopic hysterectomy, Laparoscopy, Tear duct, Tonsillectomy. Discharge Vitals Heart Rate (Peripheral) 93 Blood Pressure 88/64 Height 172 cm Height 68 in Weight 110.2 kg Weight 242.949 lb BMI 37.25 What to do next Someone Will Contact You Regarding These Appointments [facility] External Ambulatory Referral, Surgery, 09/10/24 12:57:00 EST, History of morbid obesity [facility] External Ambulatory Referral, Gastroenterology, 09/10/24 12:57:00 EST, Gastroparesis Medications What How Much When Why Instructions Unchanged albuterol (Albuterol (Eqv-ProAir HFA) 90 mcg/ inh inhalation aerosol) 2 Puffs Inhalation Every 4 hours as needed for Wheezing Contact prescribing physician if questions or concerns Unchanged fluoxetine (Prozac 40 mg Cap) 1 Capsules By Mouth Every day at bedtime Contact prescribing physician if questions or concerns Unchanged glipiZIDE (glipiZIDE 10 mg Tab) 1 Tablets By Mouth 2 times a day Contact prescribing physician if questions or concerns Unchanged hydrOXYzine (hydrOXYzine hydrochloride 25 mg Tab) 1 Tablets By Mouth Every 6 hours as needed for as needed for anxiety Contact prescribing physician if questions or concerns Unchanged ibuprofen Contact prescribing physician if questions or concerns Unchanged insulin glargine (Lantus 100 units/ mL Injection-Insulin) 30 Units Subcutaneous Once a day (at bedtime) Contact prescribing physician if questions or concerns Unchanged linaclotide (Linzess 72 mcg oral capsule) 1 Capsules By Mouth Every other day Chronic idiopathic constipation Duration: 90 Days Contact prescribing physician if questions or concerns Unchanged metoclopramide (Reglan 10 mg Tab) 1 Tablets By Mouth Every 6 hours Contact prescribing physician if questions or concerns Unchanged ondansetron (Zofran 4 mg Tab) 1 Tablets By Mouth Every 8 hours as needed for Nausea/Vomiting Contact prescribing physician if questions or concerns Unchanged peppermint oil (Ibgard 90 mg oral delayed release capsule) 2 Capsules By Mouth 2 times a day as needed for abdominal pain/cramps Contact prescribing physician if questions or concerns Unchanged polyethylene glycol 3350 (MiraLax) 17 Gram By Mouth 3 times a day Contact prescribing physician if questions or concerns Unchanged promethazine (Phenergan 25 mg Supp) 1 Suppositories By rectum Every 12 hours as needed for Nausea/Vomiting Contact prescribing physician if questions or concerns Allergies Eggs (Abdominal pain) Kiwi (unk) Latex (Itching) Pyridium (unk) amoxicillin (Rash, Nausea and vomiting) ketorolac (Itching, Dyspnea) meperidine (Itching, Dyspnea) traMADol (Unknown) Problems Ongoing - Any problem that you are currently receiving treatment for. Abdominal pain Abdominal pain, periumbilical Acute pancreatitis Bilateral lower extremity edema BMI 37.0-37.9, adult Cholangiectasis Chronic constipation Cyst of right ovary Depression Depressive disorder Diabetes Diarrhea Dysphagia Endometriosis (clinical) Essential hypertension Factor V Leiden Fatty liver Frequent loose stools LINA (generalized anxiety disorder) Gastroesophageal reflux disease Gastroparesis GERD (gastroesophageal reflux disease) Hiatal hernia History of pulmonary embolism Hyperglycemia Insomnia Left ventricular hypertrophy Morbid obesity Nausea & vomiting Nausea and vomiting Postprandial diarrhea Prolapsed lumbar intervertebral disc Smoker Steatosis of liver Historical - Any problem that you are no longer receiving treatment for. Abscess of abdominal wall Acute pulmonary embolism Dyspnea Smoker Patient Survey You may receive a survey via text or e-mail asking about your office visit. Please share your experience with us by completing your survey. We appreciate your (more content not included)... Normal [facility] Gastroenterology Office/Clin ic Noteon 09-10-2024 Gastroenterology Office/Clinic Note Gastroenterology Office/Clinic Note Chief Complaint EGD results. Flareups. has questions and concerns. HPI Staff Patient is a(n) 29 year old female who presents today for a follow-up to EGD on 09/02/24. very concerned and would like to discuss treatment [facility] Patient did pickup. Motegrity w.as denied by insurance 08/14/24. Sent Linzess 72mcg instead. Per patient Pharmacy told her that Linzess is not covered. BM's a day/week: Zofran/Phenergan/Dia n helping nausea? Helps a little Patient is asking if there other options for nausea? Any blood thinners? no Any GLP-1 agonists? no Dr. Beverly consulted 08/14/24: Impression and Plan This is a 29-year-old lady with past medical history of diabetes mellitus, GERD, morbid obesity, gastroparesis (37% residual on 4 hours solid GES) who presented to the hospital with worsening nausea She was seen recently in clinic with me for similar symptoms, nausea no vomiting, she also reported constipation, we tried to get Motegrity as an outpatient to help with both constipation gastroparesis, was not approved by insurance I recommended Linzess instead to help with constipation Patient presented to the hospital with nausea, no vomiting, similar symptoms that she had in clinic, given the severity of the nausea she decided to come to the ED, last bowel movements with 2 days ago KUB was done in the ED, nonobstructive pattern, reviewed the image, significant amount of stool burden in the colon Overall usually constipations make gastroparesis symptoms worse Recommendations -Gastroparesis diet, advance diet as tolerated -Zofran and Phenergan as needed before meals -Avoids narcotics as much as possible -MiraLAX and bowel regimen to help with constipation -Can try Linzess as an outpatient, we can revisit Motegrity with preauthorization for insurance, my office will arrange -Ultimately she may need a referral to [facility] for G-POEM procedure -She is scheduled for EGD as an outpatient, no need for urgent EGD at this point EGD: Impression and Plan 1. Normal esophagus, attempted empiric dilation of the esophagus but because of biting on the white blood it was not possible to pass the dilator through the bite block 2. Erythema in the antrum, mild patchy. Widely open pylorus. Otherwise normal stomach. Biopsies of the stomach were taken to rule out H. pylori. 3. Mild patchy erythema in the duodenum with loss of villi, random biopsies were taken to rule out celiac disease Pathology: Final Diagnosis ( Auth (Verified) ) A: STOMACH, BIOPSY: ??? GASTRIC MUCOSA COMPATIBLE WITH MILD REACTIVE GASTROPATHY. ??? NO H. PYLORI MICROORGANISMS IDENTIFIED WITH IMMUNOSTAIN. B: DUODENUM, BIOPSY: ??? DUODENAL MUCOSA WITHIN NORMAL LIMITS. XR abd/chest 08/13/24: IMPRESSION: NO RADIOGRAPHIC EVIDENCE OF ACUTE INTRATHORACIC PROCESS. NONOBSTRUCTIVE BOWEL GAS PATTERN. Laboratory Results CBC CMP Basophil Absolute: 0.1 E9/L (08/24/24) A/G Ratio: 1.4 (08/24/24) Basophil Auto: 1 % (08/24/24) AGAP: 12 mEq/L (08/24/24) Eos Absolute: 0.1 E9/L (08/24/24) Albumin Lvl: 4.4 gm/dL (08/24/24) Eos Auto: 0.9 % (08/24/24) Alk Phos: 83 Int._Unit/L (08/24/24) Hct: 42.8 % (08/24/24) ALT: 28 Int._Unit/L (08/24/24) HGB: 14.9 gm/dL (08/24/24) AST: 20 Int._Unit/L (08/24/24) Lymph Absolute: 3.7 E9/L (08/24/24) Bili Total: 0.5 mg/dL (08/24/24) Lymph Auto: 33.1 % (08/24/24) BUN: 17 mg/dL (08/24/24) MCH: 30.1 pg (08/24/24) BUN/Creat Ratio: 21 High (08/24/24) MCHC: 34.9 gm/dL (08/24/24) Calcium Lvl: 10.1 mg/dL (08/24/24) MCV: 86.3 fL (08/24/24) Chloride: 102 mmol/L (08/24/24) [place] Absolute: 0.6 E9/L (08/24/24) CO2: 28 mmol/L (08/24/24) [place] Auto: 5.2 % (08/24/24) Creatinine: 0.8 mg/dL (08/24/24) MPV: 8.6 fL (08/24/24) Globulin: 3.1 gm/dL (08/24/24) Neutro Absolute: 6.7 E9/L (08/24/24) Glucose Lvl: 227 mg/dL High (08/24/24) Neutro Auto: 59.8 % (08/24/24) Potassium Lvl: 5 mmol/L (08/24/24) Platelet: 321 E9/L (08/24/24) Sodium Lvl: 137 mmol/L (08/24/24) RBC: 5 E12/L (08/24/24) Total Protein: 7.5 gm/dL (08/24/24) RDW: 14.1 % (08/24/24) WBC: 11.3 E9/L High (08/24/24) Review of Systems PHQ Score Initial Depression Screen Score: 0 SCORE Physical Exam Vitals & Measurements HR: 93(Peripheral) BP: 88/64 HT: 68 in HT: 172 cm WT: 110.2 kg WT: 242.949 lb BMI: 37.25 Assessment/Plan 1. Gastroparesis (K31.84: Gastroparesis) This is a 29-year-old lady with past medical history of diabetes mellitus, GERD, morbid obesity, gastroparesis (37% residual on 4 hours solid GES) who presented to the hospital with worsening nausea Overall she gets recurrence of nausea and vomiting, using Reglan helps at home, GI cocktail also helps, Zofran also helps Her constipation slightly improved than before, but still having very small amount of stools on daily basis, although in the past few days she reports she had a virus with acute di (more content not included)... Normal [facility] Comment on above: Result Comment: Elec tronically Signed By: Beto GREWAL, Aly Whitten\.br\Date and Time Signed: 09/10/24 12:58 EST Surgical Pathology Reporton 09-08-2024 Surgical Pathology Report [facility] [address] [place] [address]- Surgical Pathology Report Collected Date/Time: 09/02/2024 14:55 EST Pathologist: Jose R GREWAL PhD, Jameel Scruggs Received Date/Time: 09/03/2024 07:36 EST Beto GREWAL, Aly Beverly MD, Aly Whitten 07 Surgical Pathology Report - 09/08/2024 10:25 EST - Auth (Verified) Final Diagnosis A: STOMACH, BIOPSY: - GASTRIC MUCOSA COMPATIBLE WITH MILD REACTIVE GASTROPATHY. - NO H. PYLORI MICROORGANISMS IDENTIFIED WITH IMMUNOSTAIN. B: DUODENUM, BIOPSY: - DUODENAL MUCOSA WITHIN NORMAL LIMITS. (Electronic Signature) Jameel Odell MD PhD 09/08/2024 10:25 Clinical Information Abdominal pain, gastroparesis, nausea and vomiting Pre-Op Diagnosis: Abdominal pain, gastroparesis, nausea and vomiting Procedure: EGD Post-Op Diagnosis: 1. Normal esophagus, attempted empiric dilation of the esophagus but because of biting on the white blood it was not possible to pass the dilator through the bite block 2. Erythema in the antrum, mild patchy. Widely open pylorus. Otherwise normal stomach. Biopsies of the stomach were taken to rule out H. pylori. 3. Mild patchy erythema in the duodenum with loss of villi, random biopsies were taken to rule out celiac disease Specimen(s) Received A.Gastric biopsy B.Duodenal biopsy Gross Description A: Received in formalin labeled with patient name, number, and gastric biopsy are three fragments of rodriguez soft tissue measuring 0.2 cm in diameter each. Entire specimen submitted in one cassette. B: Received in formalin labeled with patient name, number, and duodenal biopsy are three fragments of rodriguez soft tissue measuring 0.2 cm in diameter each. Entire specimen submitted in one cassette. (YC) [facility] Microscopic Description Microscopic examination performed unless gross only specified. The use of one or more reagents in the above tests is regulated as an analyte specific reagent (ASR). The test or tests are ordered following initial H&E microscopic examination. The performance characteristics were determined by the Laboratory of [facility] Surgical Pathology. They have not been cleared or approved by the US Food and Drug Administration. The FDA has determined that such clearance or approval is not necessary. These tests are used for clinical purposes. They should not be regarded as investigational or for research. Appropriate positive and negative controls are performed and are acceptable. Normal [facility] Comment on above: Performed By: #### [id number] #### [facility] [address] [place] [address] Main OR Intraoperative Recor don 09-03-2024 Main OR Intraoperative Record Main OR Intraoperative Record IntraOp Document Type FT Summary Primary Physician: Aly Beverly MD Finalized Date/Time: 09/03/24 10:16:47 Pt. Name: GAEL RUBY Michelle Chau/Sex: 1995 Female Med Rec #: [id number] Physician: Aly Beverly MD Financial #: [id number] Pt. Type: O Room/Bed: / Admit/Disch: 09/02/24 12:58:13 - 09/02/24 23:59:59 Institution: Case Times FT Entry 1 Patient Times In Room 09/02/24 14:43:00 Out Room 09/02/24 15:03:00 Procedure Times Start 09/02/24 14:53:00 Stop 09/02/24 14:59:00 Anesthesia Times Start 09/02/24 14:43:00 Stop 09/02/24 15:03:00 Last Modified By: Alicia Osorio RN 09/02/24 15:04:31 General Comments: 09/03/24 Chart opened to review and send charges LRoth CSFA Case Attendance FT Entry 1 Entry 2 Entry 3 Case Attendee Jitendra GALLO, Regina Beverly MD, Brenda Del Rio Role Performed [employer]ENT Surgeon - Primary Scrub - Primary Time In 09/02/24 14:43:00 09/02/24 14:43:00 09/02/24 14:43:00 Time Out 09/02/24 15:03:00 09/02/24 15:03:00 09/02/24 15:03:00 Procedure EGD(Bilateral) EGD(Bilateral) EGD(Bilateral) Comments Dr. Kelley is supervsing Last Modified By: Devon JUDGE, Alicia Osorio RN, Alicia Downing RN 09/02/24 15:04:33 09/02/24 15:04:33 09/02/24 15:04:33 Entry 4 Case Attendee Alicia Osorio RN Role Performed Case Management Director - Primary Time In 09/02/24 14:43:00 Time Out 09/02/24 15:03:00 Procedure EGD(Bilateral) Comments Last Modified By: Alicia Osorio RN 09/02/24 15:04:33 Perioperative Protocols FT Pre-Care Text: Implements protective measures prior to operative or invasive procedure, confirms identity before the operative or invasive procedure, verifies operative procedure, surgical site, and laterality Entry 1 Procedure(s) EGD(Bilateral) Patient Identity Birthday, ID Band Verified (select at Check, Patient least 2): Participation Consents / H and P Anesthesia Consent, Operative Site N/A Verified H&P, Surgery/Procedure Marking Verified Consent Surgical Site No Laterality Verified n/a Verified Procedure Verified Yes Correct Patient Yes Position Verified Availability Equipment, Medication PreOp Antibiotic No Verified (If Given Applicable) Time Out Regina Ham CRNA, Time Out Complete 09/02/24 14:45:00 Participants Beto GREWAL, Agusto Ohara Kirstyn K, Alicia Osorio RN Outcomes Met? Yes Last Modified By: Alicia Osorio RN 09/02/24 14:45:49 Post-Care Text: The patient is free from signs and symptoms of injury caused by extraneous objects Allergy Information FT Pre-Care Text: Verifies allergies Entry 1 Allergies Reviewed? Yes Allergies Reviewed Self/Patient With Outcomes Met? Yes Last Modified By: Alicia Osorio RN 09/02/24 14:45:57 Post-Care Text: The patient received appropriate medication(s) safely administered during the perioperative period Surgical Procedures FT Entry 1 Procedure Description Procedure EGD Modifiers Bilateral Surgeon Description EGD with gastric biopsy, duodenal biopsy. Primary Procedure Yes Primary Surgeon Aly Beverly MD Start 09/02/24 14:53:00 Stop 09/02/24 14:59:00 Anesthesia Type General Surgical Service Gastroenterology Wound Class 2 - Clean-Contaminated Last Modified By: Alicia Osorio RN 09/02/24 15:00:10 General Case Data FT Pre-Care Text: Classifies surgical wound, implements aseptic technique, initiates traffic control Entry 1 Case Information OR ENDO 1 FT Case Level Level 2 Wound Class 2 - Clean-Contaminated Specialty Gastroenterology ASA Class 3 Preop Diagnosis Abdominal pain, Postop Same As Preop No gastroporesis, nausea and vomiting Postop Diagnosis Patchy errythemia of Outcomes Met? Yes the duodenum Last Modified By: Alicia Osorio RN 09/02/24 14:54:56 Post-Care Text: The patient is free from signs and symptoms of infection Skin Assessment (Pre Procedure) FT Pre-Care Text: Implements protective measures to prevent skin/ tissue injury due to thermal or mechanical sources Evaluates for signs and symptoms of physical injury to skin and tissue Entry 1 Skin Integrity Intact, [place], Warm, & Skin Abnormality No Dry Outcomes Met? Yes Last Modified By: Alicia Osorio RN 09/02/24 14:46:58 Post-Care Text: The patient is free from signs and symptoms of injury caused by extraneous objects Patient Positioning FT Pre-Care Text: Identifies physical alterations that require additional precautions for procedure-specific positioning, verifies presence of prosthetics or corrective devices, positions the patient, evaluates the patient for signs and symptoms of injury as a result of positioning Entry 1 Procedure EGD(Bilateral) Body Position Lateral, right side up Feet Uncrossed? Yes Left Arm Position Resting at Side Right Arm Position Resting at Side Left Leg Positio (more content not included)... Normal [facility] Discharge Instructionson Discharge Instructions Discharge Instruc tions GAEL RUBY :1995 Visit Date:09/02/2024 Inpatient Discharge Instructions Your Care Team Admitting Physician - Aly Beverly MD Referring Physician - Aly Beverly MD Reason for Your Visit ABDOMINAL PAIN, GASTROPARESIS, NAUSEA AND VOMITING Your Diagnosis Dysphagia Tests Performed Pathology Tissue Exam -- Results Pending -- Please visit your patient portal for your results or contact your primary care physician. This Is Your Medications List albuterol (Albuterol (Eqv-ProAir HFA) 90 mcg/inh inhalation aerosol) fluoxetine (Prozac 40 mg Cap) glipiZIDE (glipiZIDE 10 mg Tab) hydrOXYzine (hydrOXYzine hydrochloride 25 mg Tab) ibuprofen insulin glargine (Lantus 100 units/mL Injection-Insulin) linaclotide (Linzess 72 mcg oral capsule) metoclopramide (Reglan 10 mg Tab) ondansetron (Zofran 4 mg Tab) pantoprazole (Pantoprazole [address] Tab) peppermint oil (Ibgard 90 mg oral delayed release capsule) polyethylene glycol 3350 (MiraLax) promethazine (Phenergan 25 mg Supp) prucalopride (Motegrity 2 mg oral tablet) Procedure History Esophagogastroduodenos copy (09/02/2024), section (2018), section (2016), Bilateral oophorectomy, section, Cholecystectomy, Extraction of wisdom tooth, Laparoscopic hysterectomy, Laparoscopy, Tear duct, Tonsillectomy. What to do next Instructions From Your Doctor Event Name Event Result Discharge Activity Resume normal activities in 24 hours Discharge Restrictions No driving for 24 hrs Discharge Diet(s) Other: previous Call Your Doctor For Persistent or heavy bleeding Discharge Instructions Discharge Instructions Previously Scheduled Follow-Up Appointments 2023 12:00 PM EST With: Beto GREWAL, Aly Whitten Where: [facility] [address] [place], [place] [id number]- Medications What How Much When Why Instructions Next Dose Unchanged albuterol (Albuterol (Eqv-ProAir HFA) 90 mcg/ inh inhalation aerosol) 2 Puffs Inhalation Every 4 hours as needed for Wheezing Unchanged fluoxetine (Prozac 40 mg Cap) 1 Capsules By Mouth Every day at bedtime Unchanged glipiZIDE (glipiZIDE 10 mg Tab) 1 Tablets By Mouth 2 times a day Unchanged hydrOXYzine (hydrOXYzine hydrochloride 25 mg Tab) 1 Tablets By Mouth Every 6 hours as needed for as needed for anxiety Unchanged ibuprofen Unchanged insulin glargine (Lantus 100 units/ mL Injection-Insulin) 30 Units Subcutaneous Once a day (at bedtime) Unchanged linaclotide (Linzess 72 mcg oral capsule) 1 Capsules By Mouth Every other day Chronic idiopathic constipation Duration: 90 Days Unchanged metoclopramide (Reglan 10 mg Tab) 1 Tablets By Mouth Every 6 hours Unchanged ondansetron (Zofran 4 mg Tab) 1 Tablets By Mouth Every 8 hours as needed for Nausea/Vomiting Unchanged pantoprazole (Pantoprazole [address] Tab) 1 Tablets By Mouth Every day Duration: 30 Days Unchanged peppermint oil (Ibgard 90 mg oral delayed release capsule) 2 Capsules By Mouth 2 times a day as needed for abdominal pain/cramps Unchanged polyethylene glycol 3350 (MiraLax) 17 Gram By Mouth 3 times a day Unchanged promethazine (Phenergan 25 mg Supp) 1 Suppositories By rectum Every 12 hours as needed for Nausea/Vomiting Unchanged prucalopride (Motegrity 2 mg oral tablet) 1 Tablets By Mouth Every day Test Results No qualifying data available. Allergies Eggs (Abdominal pain) Kiwi (unk) Latex (Itching) Pyridium (unk) amoxicillin (Rash, Nausea and vomiting) ketorolac (Itching, Dyspnea) meperidine (Itching, Dyspnea) traMADol (Unknown) Problems Ongoing - Any problem that you are currently receiving treatment for. Abdominal pain Abdominal pain, periumbilical Acute pancreatitis Bilateral lower extremity edema BMI 37.0-37.9, adult Cholangiectasis Cyst of right ovary Depression Depressive disorder Diabetes Diarrhea Dysphagia Endometriosis (clinical) Essential hypertension Factor V Leiden Fatty liver Frequent loose stools LINA (generalized anxiety disorder) Gastroesophageal reflux disease Gastroparesis GERD (gastroesophageal reflux disease) Hiatal hernia History of pulmonary embolism Hyperglycemia Insomnia Left ventricular hypertrophy Morbid obesity Nausea & vomiting Nausea and vomiting Postprandial diarrhea Prolapsed lumbar intervertebral disc Smoker Steatosis of liver Historical - Any problem that you are no longer receiving treatment for. Abscess of abdominal wall Acute pulmonary embolism Dyspnea Smoker Education Materials Gastritis, Adult Gastritis is irritation and swelling (inflammation) of the stomach. There are two kinds of gastritis: ??? Acute gastritis. This kind develops quickly. ??? Chronic gastritis. This kind is much more common. It develops slowly and (more content not included)... Normal [facility] Comment on above: Result Comment: Elec tronically Signed By: Cami Daily I\.br\Date and Time Signed: 09/02/24 15:14 EST Inpatient Patient Summaryon 09-02-2024 Inpatient Patient Summary Inpatient Patient Summary [address] [address] [facility] Clinical Discharge Instructions PERSON INFORMATION Name: GAEL RUBY [facility]#:[id number] PHYSICIANS Admitting Physician: Aly Beverly MD Attending Physician: Aly Beverly MD PCP: CHANTEL GREWAL, YOSSI Discharge Diagnosis: Dysphagia Comment: PATIENT EDUCATION INFORMATION Instructions: Medication Leaflets: Follow up: Type Location Start Finish State [facility] Follow Up [facility] 09/10/2024 12:00 PM 09/10/2024 12:15 PM Confirmed MEDICATION LIST Medications to Continue with No Changes Other Medications albuterol (Albuterol (Eqv-ProAir HFA) 90 mcg/inh inhalation aerosol) 2 Puffs Inhalation every 4 hours as needed Wheezing. fluoxetine (Prozac 40 mg Cap) 1 Capsules By Mouth every day. at bedtime. glipiZIDE (glipiZIDE 10 mg Tab) 1 Tablets By Mouth 2 times a day. hydrOXYzine (hydrOXYzine hydrochloride 25 mg Tab) 1 Tablets By Mouth every 6 hours as needed as needed for anxiety. ibuprofen insulin glargine (Lantus 100 units/mL Injection-Insulin) 30 Units Subcutaneous once a day (at bedtime). linaclotide (Linzess 72 mcg oral capsule) 1 Capsules By Mouth every other day for 90 Days. Refills: 0. metoclopramide (Reglan 10 mg Tab) 1 Tablets By Mouth every 6 hours. Refills: 0. ondansetron (Zofran 4 mg Tab) 1 Tablets By Mouth every 8 hours as needed Nausea/Vomiting. Refills: 6. pantoprazole (Pantoprazole [address] Tab) 1 Tablets By Mouth every day for 30 Days. Refills: 0. peppermint oil (Ibgard 90 mg oral delayed release capsule) 2 Capsules By Mouth 2 times a day as needed abdominal pain/cramps. Refills: 0., lot: [id number] exp: 11/18 polyethylene glycol 3350 (MiraLax) 17 Gram By Mouth 3 times a day. promethazine (Phenergan 25 mg Supp) 1 Suppositories By rectum every 12 hours as needed Nausea/Vomiting. Refills: 6. prucalopride (Motegrity 2 mg oral tablet) 1 Tablets By Mouth every day. Refills: 3. Comment: Foreign [facility] Main OR PACU II Recordon Main OR PACU II Record Main OR PACU II R ecord PACU Phase II Document Type FT Summary Primary Physician: Beto GREWAL, Aly Whitten Finalized Date/Time: 09/02/24 16:03:58 Pt. Name: GAEL RUBY Michelle Chau/Sex: 1995 Female Med Rec #: [id number] Physician: Aly Beverly MD Financial #: [id number] Pt. Type: O Room/Bed: / Admit/Disch: 09/02/24 12:58:13 - Institution: Case Times PACU II FT Pre-Care Text: Identifies barriers to communication and implements measures to provide psychological support and determines knowledge level Develops individualized plan of care, and ensures continuity of care Maintains patient's dignity and privacy, and maintains patient confidentiality Identifies and reports philosophical, cultural, and spiritual beliefs and values Identifies individual values and wishes concerning care administers prescribed antibiotic therapy and immunizing agents as ordered, Evaluates postoperative tissue perfusion Implements thermoregulation measures, and monitors body temperature Evaluates postoperative respiratory status Evaluates postoperative cardiac status Evaluates postoperative neurological status Assesses pain control, collaborated in initiating patient-controlled analgesia and implements alternative methods of pain control Verifies allergies, administers prescribed medications and solutions, evaluates response to medications Entry 1 In PACU II 09/02/24 15:05:00 Discharge from PACU 09/02/24 15:35:00 II Outcomes Met? Yes Last Modified By: Cami Daily I 09/02/24 16:03:53 Post-Care Text: The patient demonstrates knowledge of the expected response to the operative or invasive procedure The patient's care is consistent with the individualized perioperative plan of care The patient's right to privacy is maintained The patient's value system, lifestyle, ethnicity, and culture are considered, respected, and incorporated into the perioperative plan of care The patient participates in decisions affecting his or her perioperative plan of care. The patient is free from signs and symptoms of infection The patient has wound/tissue perfusion consistent with or improved from baseline levels established preoperatively The patient is at or returning to normothermia at the conclusion of the immediate postoperative period The patient's respiratory function is consistent with or improved from baseline levels established preoperatively The patient's cardiovascular status is consistent with or improved from baseline levels established preoperatively The patient's neurological status is consistent with or improved from baseline levels established preoperatively The patient demonstrates and/or reports adequate pain control throughout the perioperative period The patient received appropriate medication(s), safely administered during the perioperative period Finalized By: Cami Daily I Document Signatures Signed By: Cami Daily I 09/02/24 16:03 Normal [facility] Main OR Preoperative Recordo n 09-02-2024 Main OR Preoperative Record Main OR Preoperative Record Holding Area Document Type FT Summary Primary Physician: Aly Beverly MD Finalized Date/Time: 09/02/24 13:54:49 Pt. Name: FLORIPORFIRIO HERNANDEZGAELCESARIO Chau/Sex: 1995 Female Med Rec #: [id number] Physician: Aly Beverly MD Financial #: [id number] Pt. Type: O Room/Bed: / Admit/Disch: 09/02/24 12:58:13 - Institution: Case Times Holding FT Pre-Care Text: Verifies consent for planned procedure, identifies individual values and wishes concerning care, includes family members in perioperative teaching Secures patient's records' belongings, and valuables, maintains patient's dignity and privacy, and maintains patient confidentiality Entry 1 In Holding 09/02/24 13:45:00 Outcomes Met? Yes Last Modified By: Beto Stevenson RN 09/02/24 13:53:33 Post-Care Text: The patient participates in decisions affecting his or her perioperative plan of care The patient's right to privacy is maintained Surgery Checklist FT Entry 1 Patient Birthday, ID Band Procedure History and Physical, Identification: Check, Patient Verification: Surgical Consent, With Participation Patient NPO after Midnight: Yes Results Reviewed n/a Comments: Personal Items: Glasses, Jewelry Personal Items glasses, tongue ring, Comment: rings Limitations: none Complaints of Pain: No Pain Comment: denies Operative Site n/a Marking: Marked By: n/a Location: n/a Availability Equipment Verified: Does Patient Smoke Yes If Yes to Smoking. 1/2 pack per day Cigars or Cigarettes. How much per day? Patient states Yes Comment - Adult - Malena postop adult Supervision supervision available Case Cancelled in No Holding Area see comments below for reason Last Modified By: Beto Stevenson RN 09/02/24 13:54:48 Finalized By: Beto Stevenson RN Document Signatures Signed By: Beto Stevenson RN 09/02/24 13:54 Normal [facility] Outpatient Surgery Discharge Instructionon 09-02-2024 Outpatient Surgery Discharge Instruction Outpatient Surgery Discharge Instruction [place] [id number] Patient Discharge Instructions PERSON INFORMATION Name: GAEL RUBY Date of : 1995 Current Date: 09/02/2024 15:00:15 PHYSICIANS Admitting Physician: Beto GREWAL, Aly Whitten Discharge Diagnosis: Dysphagia GAEL RUBY has been given the following list of follow-up instructions, prescriptions, and patient education materials: PATIENT FOLLOW-UP INFORMATION Diet: Other: previous Discharge Activity: Resume normal activities in 24 hours Discharge Restrictions: No driving for 24 hrs Call Your Doctor For: Persistent or heavy bleeding IF UNABLE TO CONTACT YOUR PHYSICIAN AND YOU FEEL IT IS AN EMERGENCY, GO TO THE NEAREST EMERGENCY ROOM OR CALL 911 I GAEL RUBY, have received the attached patient education materials/instructions and have verbalized understanding: May we do a follow up call? Yes No I was present when discharge instructions were given Patient Signature Date Clinican/Nurse Signature ___ Date Follow up: Type Location Start [facility] Follow Up [facility] 09/10/2024 12:00 PM 09/10/2024 12:15 PM Confirmed Pharmacy Information: You may receive a survey from [facility] Balbuena asking you to rate your care experience. Your feedback is important and will help us understand what we do well and how we can improve the quality of care we provide to you, your loved ones and our community. It???s an honor to serve you. Thank you for choosing [facility] HERE ARE THE MEDICATION CHANGES THAT OCCURRED DURING YOUR HOSPITAL STAY Medications to Continue with No Changes Other Medications albuterol (Albuterol (Eqv-ProAir HFA) 90 mcg/inh inhalation aerosol) 2 Puffs Inhalation every 4 hours as needed Wheezing. fluoxetine (Prozac 40 mg Cap) 1 Capsules By Mouth every day. at bedtime. glipiZIDE (glipiZIDE 10 mg Tab) 1 Tablets By Mouth 2 times a day. hydrOXYzine (hydrOXYzine hydrochloride 25 mg Tab) 1 Tablets By Mouth every 6 hours as needed as needed for anxiety. ibuprofen insulin glargine (Lantus 100 units/mL Injection-Insulin) 30 Units Subcutaneous once a day (at bedtime). linaclotide (Linzess 72 mcg oral capsule) 1 Capsules By Mouth every other day for 90 Days. Refills: 0. metoclopramide (Reglan 10 mg Tab) 1 Tablets By Mouth every 6 hours. Refills: 0. ondansetron (Zofran 4 mg Tab) 1 Tablets By Mouth every 8 hours as needed Nausea/Vomiting. Refills: 6. pantoprazole (Pantoprazole [address] Tab) 1 Tablets By Mouth every day for 30 Days. Refills: 0. peppermint oil (Ibgard 90 mg oral delayed release capsule) 2 Capsules By Mouth 2 times a day as needed abdominal pain/cramps. Refills: 0., lot: [id number] exp: 11/18 polyethylene glycol 3350 (MiraLax) 17 Gram By Mouth 3 times a day. promethazine (Phenergan 25 mg Supp) 1 Suppositories By rectum every 12 hours as needed Nausea/Vomiting. Refills: 6. prucalopride (Motegrity 2 mg oral tablet) 1 Tablets By Mouth every day. Refills: 3. PATIENT EDUCATION INFORMATION Instructions: Medication Leaflets: Normal [facility] BMPon 08-24-2024 Anion gap [Moles/Vol] 12 mmol/L Normal 6-16 [facility] Comment on above: Performed By: #### [id number] #### [facility] [facility] [address] [place] [address] Calcium [Mass/Vol] 10.1 mg/dL Normal 8.9-11.1 [facility] Comment on above: Performed By: #### 2 [id number] #### [facility] [address] [place] [address] Chloride [Moles/Vol] 102 mmol/L Normal 101-111 [facility] Comment on above: Performed By: #### 2 [id number] #### [facility] [address] [place] [address] CO2 [Moles/Vol] 28 mmol/L Normal 21-31 [facility] Comment on above: Performed By: #### 2 [id number] #### [facility] [address] [place] [address] Creatinine [Mass/Vol] 0.8 mg/dL Normal 0.5-1.3 [facility] Comment on above: Performed By: #### 2 [id number] #### [facility] [address] [place] [address] Glucose [Mass/Vol] 227 mg/dL High 55-199 [facility] Comment on above: Performed By: #### 2 [id number] #### [facility] [address] [place] [address] Potassium [Moles/Vol] 5.0 mmol/L Normal 3.5-5.3 [facility] Comment on above: Performed By: #### 2 [id number] #### [facility] [address] [place] [address] Sodium [Moles/Vol] 137 mmol/L Normal 135-145 [facility] Comment on above: Performed By: #### 2 [id number] #### [facility] [address] [place] [address] Urea nitrogen [Mass/Vol] 17 mg/dL Normal 5-21 [facility] Comment on above: Performed By: #### 2 [id number] #### [facility] [address] [place] [address] Urea nitrogen/Creatinine [Mass ratio] 21 No Units High 10-20 [facility] Comment on above: Performed By: #### 2 [id number] #### [facility] [address] [place] [address] CBC w/ Auto Diffon 4 Basophils/100 WBC (Bld) 1.0 % Normal 0.0-2.0 [facility] Comment on above: Performed By: #### 2 [id number] #### [facility] [address] [place] [address] Basophils/Leukocytes Auto (Bld) [Pure # fraction] 0.1 E9/L Normal 0.0-0.2 [facility] Comment on above: Performed By: #### 2 [id number] #### [facility] [address] [place] [address] Eosinophils (Bld) [#/Vol] 0.1 E9/L Normal 0.0-0.5 [facility] Comment on above: Performed By: #### 2 [id number] #### [facility] [address] [place] [address] Eosinophils/100 WBC (Bld) 0.9 % Normal 0.0-8.0 [facility] Comment on above: Performed By: #### 2 [id number] #### [facility] [address] [place] [address] Erythrocyte distribution width (RBC) [Ratio] 14.1 % Normal 10.9-14.2 [facility] Comment on above: Performed By: #### 2 [id number] #### [facility] [address] [place] [address] Hematocrit (Bld) [Volume fraction] 42.8 % Normal 34.0-46.0 [facility] Comment on above: Performed By: #### 2 [id number] #### [facility] [address] [place] [address] Hemoglobin (Bld) [Mass/Vol] 14.9 g/dL Normal 12.0-16.0 [facility] Comment on above: Performed By: #### 2 [id number] #### [facility] [address] [place] [address] Lymphocytes (Bld) [#/Vol] 3.7 E9/L Normal 1.0-4.0 [facility] Comment on above: Performed By: #### 2 [id number] #### [facility] [address] [place] [address] Lymphocytes/100 WBC (Bld) 33.1 % Normal 14.0-50.0 [facility] Comment on above: Performed By: #### 2 [id number] #### [facility] [address] [place] [address] MCH (RBC) [Entitic mass] 30.1 pg Normal 27.0-34.0 [facility] Comment on above: Performed By: #### 2 [id number] #### [facility] [address] [place] [address] MCHC (RBC) [Mass/Vol] 34.9 g/dL Normal 31.4-36.0 [facility] Comment on above: Performed By: #### 2 [id number] #### [facility] [address] [place] [address] MCV (RBC) [Entitic vol] 86.3 fL Normal 80.0-100.0 [facility] Comment on above: Performed By: #### 2 [id number] #### [facility] [address] [place] [address] Monocytes (Bld) [#/Vol] 0.6 E9/L Normal 0.2-1.0 [facility] Comment on above: Performed By: #### 2 [id number] #### [facility] [address] [place] [address] Neutrophils (Bld) [#/Vol] 6.7 E9/L Normal 2.0-7.5 [facility] Comment on above: Performed By: #### 2 [id number] #### [facility] [address] [place] [address] Neutrophils/100 WBC (Bld) 59.8 % Normal 36.0-75.0 [facility] Comment on above: Performed By: #### 2 [id number] #### [facility] [address] [place] [address] Platelet mean volume (Bld) [Entitic vol] 8.6 fL Normal 6.4-10.8 [facility] Comment on above: Performed By: #### 2 [id number] #### [facility] [address] [place] [address] Platelets (Bld) [#/Vol] 321.0 E9/L Normal 150.0-500.0 [facility] Comment on above: Performed By: #### 2 [id number] #### [facility] [address] [place] [address] RBC (Bld) [#/Vol] 5.0 E12/L Normal 4.3-5.9 [facility] Comment on above: Performed By: #### 2 [id number] #### [facility] [address] [place] [address] WBC corrected for nucl RBC Auto (Bld) [#/Vol] 11.3 E9/L High 4.0-11.0 [facility] Comment on above: Performed By: #### 2 [id number] #### [facility] [address] [place] [address] CHEMISTRYOrdered By: SYSTEM SYSTEM on 08-24-2024 Albumin [Mass/Vol] 4.4 g/dL Normal 3.3 - 5.0 gm/dL [facility] Albumin/Globulin [Mass ratio] 1.4 {ratio} Normal 1.1 - 2.2 [facility] ALP [Catalytic activity/Vol] 83 [iU]/d Normal 21 - 98 Int._Unit/L [facility] Chem ALT No additional P-5'-P [Catalytic activity/Vol] 28 [iU]/d Normal 6 - 46 Int._Unit/L [facility] Anion gap [Moles/Vol] 12 mmol/L Normal 6 - 16 mEq/L [facility] AST [Catalytic activity/Vol] 20 [iU]/d Normal 5 - 43 Int._Unit/L [facility] Bilirubin [Mass/Vol] 0.5 mg/dL Normal 0.0 - 1 .1 mg/dL [facility] Bilirubin.direct [Mass/Vol] 0.1 mg/dL Normal 0.0 - 0.4 mg/dL [facility] Bilirubin.indirect [Mass or moles/Vol] 0.4 mg/dL Normal 0.1 - 0.9 mg/dL [facility] Calcium [Mass/Vol] 10.1 mg/dL Normal 8.9 - 11. 1 mg/dL [facility] Chloride [Moles/Vol] 102 mmol/L Normal 101 - 1 11 mmol/L [facility] CO2 [Moles/Vol] 28 mmol/L Normal 21 - 31 mmol/L [facility] Creatinine [Mass/Vol] 0.8 mg/dL Normal 0.5 - 1.3 mg/dL [facility] eGFR 102 mL/min/1.73 m2 Normal >=59mL/mi n/ 1.73 m2 [facility] Globulin (S) [Mass/Vol] 3.1 g/dL Normal 1.4 - 4.0 gm/dL [facility] Glucose [Mass/Vol] 227 mg/dL High 55 - 199 mg/dL [facility] Lipase [Catalytic activity/Vol] 85 U/L High 13 - 58 unit/L [facility] Potassium [Moles/Vol] 5.0 mmol/L Normal 3.5 - 5.3 mmol/L [facility] Protein [Mass/Vol] 7.5 g/dL Normal 6.0 - 7.8 gm/dL [facility] Sodium [Moles/Vol] 137 mmol/L Normal 135 - 145 mmol/L [facility] Urea nitrogen [Mass/Vol] 17 mg/dL Normal 5 - 21 mg/dL [facility] Urea nitrogen/Creatinine [Mass ratio] 21 mg/mg High 10 - 20 [facility] ED Clinical Summaryon 12-02- 2024 ED Clinical Summary ED Clinical Summary [address] [address] ED Clinical Summary Person Information Name: GAEL RUBY/RicJuany Age: 29 Years : 1995 Sex: Female Language: Somali PCP: YOSSI GOLDEN MD Marital Status: Phone: Visit Id: Visit Reason: Nausea; Abdominal pain; ABDOMINAL PAIN Speciality: Acuity: 3 Enc Type: Emergency Med Service: Emergency Arrival: 08/24/2024 12:11:53 Discharge: 08/24/2024 17:46:23 LOS: 000 05:35 Checkin: 08/24/2024 12:11:53 Checkout: 08/24/2024 17:46:23 Dispo Type: Home (Routine DC) EVENTS: Event Name Event Status Request Date/Time Start Date/Time Complete Date/Time Arrive Complete 08/24/2024 12:11:53 08/24/2024 12:11:53 08/24/2024 12:11:53 Document Home Meds Request 08/24/2024 12:11:53 Triage Complete 08/24/2024 12:11:53 08/24/2024 12:21:08 08/24/2024 12:21:08 Bed Assign Complete 08/24/2024 12:13:59 08/24/2024 12:13:59 08/24/2024 12:13:59 Dr Exam Complete 08/24/2024 12:13:59 08/24/2024 12:14:19 08/24/2024 12:14:19 RN Exam Complete 08/24/2024 12:13:59 08/24/2024 14:11:32 08/24/2024 14:11:32 Registration Complete 08/24/2024 12:14:19 08/24/2024 12:45:29 08/24/2024 12:45:29 Dr Exam Complete 08/24/2024 12:14:57 08/24/2024 12:14:57 08/24/2024 12:14:57 Isolation Screening Request 08/24/2024 12:21:09 Pending Labs Complete 08/24/2024 12:38:23 08/24/2024 13:20:22 Lab Complete 08/24/2024 12:38:23 08/24/2024 13:20:22 Meds Admin Complete 08/24/2024 12:38:23 08/24/2024 13:20:47 Reg Complete Request 08/24/2024 12:45:29 Reg Bed Request Complete 08/24/2024 12:45:29 08/24/2024 12:45:29 08/24/2024 12:45:29 Pending Labs Complete 08/24/2024 12:55:22 08/24/2024 12:55:22 08/24/2024 12:55:23 Pending Labs Complete 08/24/2024 12:56:22 08/24/2024 12:56:22 08/24/2024 13:20:22 Lab Complete 08/24/2024 12:56:22 08/24/2024 12:56:22 08/24/2024 13:20:22 Meds Admin Complete 08/24/2024 14:46:32 08/24/2024 14:48:26 Pending Labs Complete 08/24/2024 14:49:05 08/24/2024 16:57:58 Meds Admin Complete 08/24/2024 14:49:05 08/24/2024 16:52:06 Meds Admin Complete 08/24/2024 16:32:40 08/24/2024 16:48:13 Discharge Complete 08/24/2024 17:29:17 08/24/2024 17:46:32 08/24/2024 17:46:32 Transfer Complete 08/24/2024 17:46:32 08/24/2024 17:46:32 08/24/2024 17:46:32 ADDRESS: [address] [place] [id number] [facility] DOC NOTES: MEDICAL INFORMATION: Prescriptions Given: New Medications Printed Prescriptions prochlorperazine (Compazine 10 mg oral tablet) 1 Tablets By Mouth 3 times a day for 7 Days. Refills: 0. Medications to Continue with No Changes Other Medications albuterol (Albuterol (Eqv-ProAir HFA) 90 mcg/inh inhalation aerosol) 2 Puffs Inhalation every 4 hours as needed Wheezing. fluoxetine (Prozac 40 mg Cap) 1 Capsules By Mouth every day. at bedtime. glipiZIDE (glipiZIDE 10 mg Tab) 1 Tablets By Mouth 2 times a day. hydrOXYzine (hydrOXYzine hydrochloride 25 mg Tab) 1 Tablets By Mouth every 6 hours as needed as needed for anxiety. ibuprofen insulin glargine (Lantus 100 units/mL Injection-Insulin) 30 Units Subcutaneous once a day (at bedtime). linaclotide (Linzess 72 mcg oral capsule) 1 Capsules By Mouth every other day for 90 Days. Refills: 0. metoclopramide (Reglan 10 mg Tab) 1 Tablets By Mouth every 6 hours. Refills: 0. ondansetron (Zofran 4 mg Tab) 1 Tablets By Mouth every 8 hours as needed Nausea/Vomiting. Refills: 6. pantoprazole (Pantoprazole [address] Tab) 1 Tablets By Mouth every day for 30 Days. Refills: 0. peppermint oil (Ibgard 90 mg oral delayed release capsule) 2 Capsules By Mouth 2 times a day as needed abdominal pain/cramps. Refills: 0. polyethylene glycol 3350 (MiraLax) 17 Gram By Mouth 3 times a day. promethazine (Phenergan 25 mg Supp) 1 Suppositories By rectum every 12 hours as needed Nausea/Vomiting. Refills: 6. prucalopride (Motegrity 2 mg oral tablet) 1 Tablets By Mouth every day. Refills: 3. PATIENT EDUCATION INFORMATION: Instructions: Follow up: With: Address: When: Aly Rizzo [facility], [address] [phone] Business (1) In 3 days 08/27/2024 With: Address: When: YOSSI GOLDEN [address] [place], [place] [phone] Business (1) In 3 days DIAGNOSIS: Gastroparesis Normal [facility] ED Note-Physicianon 08-24-20 ED Note-Physician ED Note-Physician Basic Information Time Seen: Phan Sandy DO 08/24/2024 12:14 Chief Complaint ABD PAIN AND NAUSEA. HX OF gastroparesis History of Present Illness 29 year old female presents to the ED with chief complaint of abdominal pain and nausea. Pt reports she has a history of gastroparesis and this feels similar to it. She states pain is in upper abdomen in epigastric region. She was seen in the ED a little over one week ago and was admitted to the hospital for it due to her inability to control her symptoms even with multiple medications given in ED. Per pt and her spouse, nothing was effective during admission either. She was sent home on multiple new medications and states nothing is relieving her pain at home. She has seen GI recently and is scheduled for an EGD Sep 02. She states the pain and nausea is just too bad to wait. She has a history of cholecystectomy, total hysterectomy, and 3 C-Sections. She denies any vomiting, diarrhea, constipation, or bloody stools. She denies fevers, chills, back pain, flank pain, or groin pain. She denies any urinary symptoms. No chest pain or shortness of breath. Pt denies any further aggravating factors or concerns related to today's visit. No other aggravating or relieving factors no other associated symptoms no other prior treatments or complaints. Family: Reviewed and noncontributory Social: lives at home Review of systems negative unless otherwise specified in the HPI. Physical Exam Vitals & Measurements T: 36.7 ???C(Oral) HR: 85(Peripheral) RR: 18 BP: 147/86 SpO2: 96% HT: 172.72 cm WT: 114 kg BMI: 38.21 Nurses notes and vital signs reviewed and patient is not hypoxic. General: The patient appears well. Patient is resting comfortably on the exam bed. Skin: Warm, dry, no pallor noted. Head: Atraumatic. Neck: No JVD. Eye: Normal conjunctiva. Ears, Nose, Mouth, and Throat: Moist mucous membranes Cardiovascular: Regular rate and rhythm. Strong distal pulses. Chest wall: No pain or obvious deformity. Respiratory: Respirations are nonlabored. Lungs clear to auscultation bilaterally throughout. Back: Normal range of motion, no CVA tenderness. Musculoskeletal: Normal ROM with no gross deformity. Gastrointestinal: Soft, non-distended abdomen. Pain on palpation to epigastric region. No guarding, rigidity, or rebound tenderness. Urological: pt denies urinary hesitancy, dysuria, frequency Neurological: Awake and alert. No focal deficits. Follows commands. GCS 15. Psychiatric: Cooperative. Medical Decision Making Workup in the ER has been reviewed and noted. Workup is consistent with prior lab studies. Patient is treated with multiple rounds of medication ultimately is feeling better pain has been alleviated. She did request Compazine Benadryl and GI cocktail which does work for her. She also did request morphine and IV Tylenol which also did seem to help her as well. Ultimately she is discharged home has upcoming EGD and follow-up with GI physician on September 02. Assessment/Plan Gastroparesis (K31.84: Gastroparesis) Orders: acetaminophen + Generic Diluent 100 mL, 1,000 mg = 100 mL, IV Piggyback, Once, Stop date 08/24/24 14:46:00 EST, STAT, Start date 08/24/24 14:46:00 EST, 400 mL/hr, Infuse over 15 minute(s), 08/24/24 14:46:00 EST acetaminophen + Generic Diluent 100 mL, 1,000 mg = 100 mL, Soln-IV, IV Piggyback, Once, Stop date 08/24/24 14:48:00 EST, STAT, Start date 08/24/24 14:48:00 EST, 400 mL/hr, Infuse over 15 minute(s) Al hydroxide/Mg hydroxide/simethicone, 30 mL, Susp-Oral, Oral, Once, Stop date 08/24/24 16:32:00 EST, STAT, Start date 08/24/24 16:32:00 EST atropine/hyoscyamine/P B/scopolamine, 10 mL, Elixir, Oral, Once, Stop date 08/24/24 16:32:00 EST, STAT, Start date 08/24/24 16:32:00 EST diphenhydrAMINE, 25 mg = 0.5 mL, Injection, IV, Once, Stop date 08/24/24 16:32:00 EST, STAT, Start date 08/24/24 16:32:00 EST, 08/24/24 16:32:00 EST diphenhydrAMINE, 25 mg = 0.5 mL, Injection, IV, Once, Stop date 08/24/24 12:38:00 EST, STAT, Start date 08/24/24 12:38:00 EST, 08/24/24 12:38:00 EST lidocaine topical, 200 mg, 10 mL, Soln-Oral, Oral, Once, Stop date 08/24/24 16:32:00 EST, STAT, Start date 08/24/24 16:32:00 EST metoclopramide, 10 mg = 2 mL, Injection, IV Push, Once, Stop date 08/24/24 12:37:00 EST, STAT, Start date 08/24/24 12:37:00 EST, 08/24/24 12:37:00 EST morphine, 4 mg = 1 mL, Injection, IV Push, Once, Stop date 08/24/24 14:48:00 EST, STAT, Start date 08/24/24 14:48:00 EST, 08/24/24 14:48:00 EST pantoprazole, 40 mg = 10 mL, Injection, IV Push, Once, Stop date 08/24/24 12:37:00 EST, STAT, Start date 08/24/24 12:37:00 EST, 08/24/24 12:37:00 EST prochlorperazine, = 1 tab(s), Oral, TID, X 7 day(s), # 21 tab(s), Refills(s) 0 prochlorperazine, 10 mg = 1 tab(s), Tab, Oral, Once, Stop date 08/24/24 16:31:00 EST, STAT, Start date 08/24/24 16:31:00 EST, 08/24/24 16:31:00 EST Basic Metabolic Panel CBC w/ Auto Diff eGFR Extra Blue Tube Extra SST Tube Hepatic Functi (more content not included)... Normal [facility] Comment on above: Result Comment: Elec tronically Signed By: Phan Sandy DO\.br\Date and Time Signed: 08/24/24 17:31 EST ED Patient Education Noteon 08-24-2024 ED Patient Education Note ED Patient Education Note Normal [facility] ED Patient Summaryon ED Patient Summary ED Patient Summary [address] [address] Patient Discharge Instructions Person Information Name: GAEL RUBY Age: 29 Years Arrival Date: 08/24/2024 12:11:53 Discharge Diagnosis: Gastroparesis Primary Care Physician: YOSSI GOLDEN MD Provider Information Primary Provider: Phan Sandy DO [employer] Processor:None The exam and treatment you received in the Emergency Department were for an urgent problem and are not intended as complete care. It is important that you follow up with a doctor, nurse practitioner, or physician???s secretary administrative assistant for ongoing care. If your symptoms become worse or you do not improve as expected and you are unable to reach your usual health care provider, you should return to the Emergency Department. We are available 24 hours a day. GAEL RUBY has been given the following list of patient education materials, prescriptions and follow-up instructions: Follow-up Instructions: With: Address: When: Aly Beverly [address] [place] [address], [address], [address] [phone] Business (1) In 3 days 08/27/2024 With: Address: When: YOSSI GOLDEN [address] [place], [place] [phone] Business (1) In 3 days In the event that this physician does not participate in your insurance network, please consult with your insurance company to find a nearby participating provider. Patient Education Materials: A MESSAGE TO ALL PATIENTS REGARDING OPIOIDS PRESCRIPTION OPIOIDS: WHAT YOU NEED TO KNOW Prescription opioids can be used to help relieve pnbxbwry-wf-yxyaab pain and are often prescribed following a surgery or injury, or for certain health conditions. These medications can be an important part of the treatment but also come with serious risks. It is important to work with your healthcare provider to make sure you are getting the safest, most effective care. WHAT ARE THE RISKS AND SIDE EFFECTS OF OPIOID USE? Prescription opioids carry serious risks of addiction and overdose, especially with prolonged use. An opioid overdose, often marked by slowed breathing, can cause sudden . The use of prescription opioids can have a number of side effects as well, even when taken as directed: ??? Tolerance???meaning you might need to take more of the medication for the same pain relief ??? Physical dependence???meaning you have symptoms of withdrawal when a medication is stopped ??? Increased sensitivity to pain ??? Constipation ??? Nausea, vomiting, and dry mouth ??? Sleepiness and dizziness ??? Confusion ??? Depression ??? Low levels of testosterone that can result in lower sex drive, energy, and strength ??? Itching and sweating RISKS ARE GREATER WITH: ??? History of drug misuse, substance use disorder, or overdose ??? Mental health conditions (such as depression or anxiety) ??? Sleep apnea ??? Older age (65 years and older) ??? Avoid alcohol while taking prescription opioids. Also, unless specifically advised by your health care provider, medications to avoid include: ??? Benzodiazepines (such as Xanax or Valium) ??? Muscle relaxants (such as Soma or Flexeril) ??? Hypnotics (such as Ambien or Lunesta) ??? Other prescription opioids KNOW YOUR OPTIONS Talk to your health care provider about ways to manage your pain that don???t involve prescription opioids. Some of these options may actually work better and have fewer risks and side effects. Options may include: ??? Pain relievers such as acetaminophen, ibuprofen, and naproxen ??? Some medication that are also used for depression or seizures ??? Physical therapy and exercise ??? Cognitive behavioral therapy, a psychological, goal-directed approach, in which patients learn how to modify physical, behavioral, and emotional triggers of pain and stress. IF YOU ARE PRESCRIBED OPIOIDS FOR PAIN: ??? Never take opioids in greater amounts or more often than prescribed. ??? Follow up with your primary health care provider. o Work together to create a plan on how to manage your pain. o Talk about ways to help manage your pain that don???t involve prescription opioids. o Talk about any and all concerns and side effects. ??? Help prevent misuse and abuse o Never sell or share prescription opioids. o Never use another person???s prescription opioids. ??? Store prescription opioids in a secure place and out of reach of others (this may include visitors, children, friends, and family). ??? Safely dispose of unused prescription opioids: Find your community drug take-back program or your pharmacy mail-back program, or flush them down the toilet, following guidance from the Food and Drug Administration (www.fda.gov/Drugs/Res ourcesForYou). ??? Visit www.cdc.gov/drugoverdo se to learn about the risks of opioids abuse and overdose. ??? If yo (more content not included)... Normal [facility] Extra Blueon 08-24-2024 Tube Collected Plasma Yes Invalid Interpretation Code [facility] Comment on above: Performed By: #### 1 [id number] #### [facility] [address] [place] [address] HEMATOLOGYOrdered By: SYSTEM SYSTEM on 08-24-2024 Basophils/100 WBC (Bld) 1.0 % Normal 0.0 - 2.0 % Remisol Heme Basophils/Leukocytes Auto (Bld) [Pure # fraction] 0.1 E9/L Normal 0.0 - 0.2 E9/L Remisol Heme Eosinophils (Bld) [#/Vol] 0.1 E9/L Normal 0.0 - 0.5 E9/L Rem[facility] Heme Eosinophils/100 WBC (Bld) 0.9 % Normal 0.0 - 8.0 % Remisol Heme Erythrocyte distribution width (RBC) [Ratio] 14.1 % Normal 10.9 - 14.2 % [facility] Heme Hematocrit (Bld) [Volume fraction] 42.8 % Normal 34.0 - 46.0 % [facility] Heme Hemoglobin (Bld) [Mass/Vol] 14.9 g/dL Normal 12.0 - 16.0 gm/dL [facility] Heme Lymphocytes (Bld) [#/Vol] 3.7 E9/L Normal 1.0 - 4.0 E9/L [facility] Heme Lymphocytes/100 WBC (Bld) 33.1 % Normal 14.0 - 50.0 % [facility] Heme MCH (RBC) [Entitic mass] 30.1 pg Normal 27.0 - 34.0 pg [facility] Heme MCHC (RBC) [Mass/Vol] 34.9 g/dL Normal 31.4 - 36.0 gm/dL [facility] Heme MCV (RBC) [Entitic vol] 86.3 fL Normal 80.0 - 100.0 fL [facility]e Monocytes (Bld) [#/Vol] 0.6 E9/L Normal 0.2 - 1.0 E9/L [facility] Heme Monocytes/100 WBC (Bld) 5.2 % Normal 4.0 - 14.0 % [facility] Heme Neutrophils (Bld) [#/Vol] 6.7 E9/L Normal 2.0 - 7.5 E9/L [facility] Heme Neutrophils/100 WBC (Bld) 59.8 % Normal 36.0 - 75.0 % [facility] Heme Platelet mean volume (Bld) [Entitic vol] 8.6 fL Normal 6.4 - 10.8 fL [facility] Heme Platelets (Bld) [#/Vol] 321.0 E9/L Normal 150.0 - 500.0 E9/L [facility] Heme RBC (Bld) [#/Vol] 5.0 E12/L Normal 4.3 - 5.9 E12/L [facility]e WBC corrected for nucl RBC Auto (Bld) [#/Vol] 11.3 E9/L High 4.0 - 11.0 E9/L Rem[facility] Heme Hep Func Panelon 08-24-2024 Albumin [Mass/Vol] 4.4 g/dL Normal 3.3-5.0 [facility] Comment on above: Performed By: #### 2 [id number] #### [facility] [address] [place] [address] Albumin/Globulin (S) [Mass conc ratio] 1.4 Normal 1.1-2.2 [facility] Comment on above: Performed By: #### 2 [id number] #### [facility] [address] [place] [address] ALP [Catalytic activity/Vol] 83 Int._Unit/L Normal 21-98 [facility] Comment on above: Performed By: #### 2 [id number] #### [facility] [address] [place] [address] ALT No additional P-5'-P [Catalytic activity/Vol] 28 Int._Unit/L Normal 6-46 [facility] Comment on above: Performed By: #### 2 [id number] #### [facility] [address] [place] [address] AST [Catalytic activity/Vol] 20 Int._Unit/L Normal 5-43 [facility] Comment on above: Performed By: #### 2 [id number] #### [facility] [facility] [address] [place] [address] Bilirubin [Mass/Vol] 0.5 mg/dL Normal 0.0-1.1 [facility] Comment on above: Performed By: #### 2 [id number] #### [facility] [address] [place] [address] Bilirubin.direct [Mass/Vol] 0.1 mg/dL Normal 0.0-0.4 [facility] Comment on above: Performed By: #### 2 [id number] #### [facility] [address] [place] [address] Bilirubin.indirect [Mass or moles/Vol] 0.4 mg/dL Normal 0.1-0.9 [facility] Comment on above: Performed By: #### 2 [id number] #### [facility] [address] [place] [address] Globulin (S) [Mass/Vol] 3.1 g/dL Normal 1.4-4.0 [facility] Comment on above: Performed By: #### 2 [id number] #### [facility] [address] [place] [address] Protein [Mass/Vol] 7.5 g/dL Normal 6.0-7.8 [facility] Comment on above: Performed By: #### 2 [id number] #### [facility] [address] [place] [address] Lipase Levelon 08-24-2024 Lipase [Catalytic activity/Vol] 85 U/L High 13-58 [facility] Comment on above: Performed By: #### 2 [id number] #### [facility] [address] [place] [address] UA with Cult Rflxon 08-24-20 24 Bilirubin Ql (U) Negative Normal Negative [facility] Comment on above: Performed By: #### 4 [id number] ####[facility] [address] [place] [address] Clarity (U) Clear Normal Clear [facility] Comment on above: Performed By: #### 4 [id number] ####[facility] [address] [place] [address] Color (U) Light-Yellow Normal Yellow [facility] Comment on above: Result Comment: Micr oscopic readings are only performed on those samples that meet specific criteria set forth by [facility]. Performed By: #### 4 [id number] ####[facility] [address] [place] [address] Glucose Ql (U) 4+ mg/dL Abnormal Negative [facility] Comment on above: Performed By: #### 4 [id number] ####[facility] [address] [place] [address] Hemoglobin Auto test strip (U) [Mass/Vol] Negative Normal Negative [facility] Comment on above: Performed By: #### 4 [id number] ####[address] [address] Ketones Auto test strip Ql (U) Negative Normal Negative [facility] Comment on above: Performed By: #### 4 [id number] ####[facility] [address] [place] [address] Leukocyte esterase Auto test strip Ql (U) Negative Normal Negative [facility] Comment on above: Performed By: #### 4 [id number] ####[facility] [address] [place] [address] Nitrite Auto test strip Ql (U) Negative Normal Negative [facility] Comment on above: Performed By: #### 4 [id number] ####[place] [place] [address] pH (U) 6.5 [pH] Invalid Interpretation Code 5.0-9.0 [facility] Comment on above: Performed By: #### 4 [id number] ####[facility] [address] [place] [address] Protein Ql (U) Negative Normal Negative [facility] Comment on above: Performed By: #### 4 [id number] ####[address] [place] [address] Specific gravity (U) [Rel density] 1.036 Invalid Interpretation Code 1.005-1.030 [facility] Comment on above: Performed By: #### 4 [id number] ####[facility] [address] [place] [id number] Urobilinogen (U) [Mass/Vol] Negative Normal Negative [facility] Comment on above: Performed By: #### 4 [id number] ####[facility] [address] [place] [id number] Type of Urine collection method Clean Catch Normal [facility] Comment on above: Performed By: #### 4 [id number] ####[facility] [address] [place] [id number] URINALYSISOrdered By: SYSTEM SYSTEM on 08-24-2024 Bilirubin Ql (U) Negative Normal Negativemg/ dL [facility] UA Auto SS Clarity (U) Clear (08/24/24 3:06 PM) Normal Clear [facility] UA Auto SS Color (U) Light-Yellow 1 (08/24/24 3:06 PM) Normal Yellow [facility] UA Auto SS Comment on above: Interpretive Data: M icroscopic readings are only performed on those samples that meet specific criteria set forth by [facility]. Glucose Ql (U) 4+ mg/dL Invalid Interpretation Code Negativemg/ dL [facility] UA Auto SS Hemoglobin Auto test strip (U) [Mass/Vol] Negative Normal Negativemg/ dL [facility] UA Auto SS Ketones Auto test strip Ql (U) Negative Normal Negativemg/ dL [facility] UA Auto SS Leukocyte esterase Auto test strip Ql (U) Negative Normal NegativeLeu /uL [facility] UA Auto SS Nitrite Auto test strip Ql (U) Negative Normal Negativemg/ dL [facility] UA Auto SS pH (U) 6.5 *NA* (08/24/24 3:06 PM) Invalid Interpretation Code 5.0 - 9.0 [facility] UA Auto SS Protein Ql (U) Negative Normal Negativemg/ dL [facility] UA Auto SS Specific gravity (U) [Rel density] 1.036 *NA* (08/24/24 3:06 PM) Invalid Interpretation Code 1.005 - 1.030 [facility] UA Auto SS Urobilinogen (U) [Mass/Vol] Negative Normal Negativemg/ dL [facility] UA Auto SS URINALYSISOrdered By: Phan sequeira on 08-24-2024 UA Spec Desc Clean Catch (08/24/24 3:06 PM) Normal [facility] UA Auto SS eGFRon 08-24-2024 eGFR 102 mL/min/1.73 m2 Normal >=59 [facility] Comment on above: Performed By: #### 1 [id number] #### [facility] [address] [place] [address] BMPon 08-14-2024 Anion gap [Moles/Vol] 11 mmol/L Normal 6-16 [facility] Comment on above: Performed By: #### 2 [id number] #### [facility] [address] [place] [address] Calcium [Mass/Vol] 9.0 mg/dL Normal 8.9-11.1 [facility] Comment on above: Performed By: #### 2 [id number] #### [facility] [address] [place] [address] Chloride [Moles/Vol] 104 mmol/L Normal 101-111 [facility] Comment on above: Performed By: #### 2 [id number] #### [facility] [address] [place] [address] CO2 [Moles/Vol] 28 mmol/L Normal 21-31 [facility] Comment on above: Performed By: #### 2 [id number] #### [facility] [address] [place] [address] Creatinine [Mass/Vol] 1.0 mg/dL Normal 0.5-1.3 [facility] Comment on above: Performed By: #### 2 [id number] #### [facility] [address] [place] [address] Glucose [Mass/Vol] 162 mg/dL Normal 55-199 [facility] Comment on above: Performed By: #### 2 [id number] #### [facility] [address] [place] [address] Potassium [Moles/Vol] 4.0 mmol/L Normal 3.5-5.3 [facility] Comment on above: Performed By: #### 2 [id number] #### [facility] [address] [place] [address] Sodium [Moles/Vol] 139 mmol/L Normal 135-145 [facility] Comment on above: Performed By: #### 2 [id number] #### [facility] [address] [place] [address] Urea nitrogen [Mass/Vol] 11 mg/dL Normal 5-21 [facility] Comment on above: Performed By: #### 2 [id number] #### [facility] [address] [place] [address] Urea nitrogen/Creatinine [Mass ratio] 11 No Units Normal 10-20 [facility] Comment on above: Performed By: #### 2 [id number] #### [facility] [address] [place] [address] CBC w/ Auto Diffon 4 Basophils/100 WBC (Bld) 1.0 % Normal 0.0-2.0 [facility] Comment on above: Performed By: #### 2 [id number] #### [facility] [address] [place] [address] Basophils/Leukocytes Auto (Bld) [Pure # fraction] 0.1 E9/L Normal 0.0-0.2 [facility] Comment on above: Performed By: #### 2 [id number] #### [facility] [address] [place] [address] Eosinophils (Bld) [#/Vol] 0.1 E9/L Normal 0.0-0.5 [facility] Comment on above: Performed By: #### 2 [id number] #### [facility] [address] [place] [address] Eosinophils/100 WBC (Bld) 2.1 % Normal 0.0-8.0 [facility] Comment on above: Performed By: #### 2 [id number] #### [facility] [address] [place] [address] Erythrocyte distribution width (RBC) [Ratio] 14.1 % Normal 10.9-14.2 [facility] Comment on above: Performed By: #### 2 [id number] #### [facility] [address] [place] [address] Hematocrit (Bld) [Volume fraction] 40.8 % Normal 34.0-46.0 [facility] Comment on above: Performed By: #### 2 [id number] #### [facility] [address] [place] [address] Hemoglobin (Bld) [Mass/Vol] 13.9 g/dL Normal 12.0-16.0 [facility] Comment on above: Performed By: #### 2 [id number] #### [facility] [address] [place] [address] Lymphocytes (Bld) [#/Vol] 2.5 E9/L Normal 1.0-4.0 [facility] Comment on above: Performed By: #### 2 235346 #### [facility] [address] [place] [address] Lymphocytes/100 WBC (Bld) 35.8 % Normal 14.0-50.0 [facility] Comment on above: Performed By: #### 2 [id number] #### [facility] [address] [place] [address] MCH (RBC) [Entitic mass] 29.2 pg Normal 27.0-34.0 [facility] Comment on above: Performed By: #### 2 [id number] #### [facility] [address] [place] [address] MCHC (RBC) [Mass/Vol] 34.0 g/dL Normal 31.4-36.0 [facility] Comment on above: Performed By: #### 2 [id number] #### [facility] [address] [place] [address] MCV (RBC) [Entitic vol] 86.1 fL Normal 80.0-100.0 [facility] Comment on above: Performed By: #### 2 [id number] #### [facility] [address] [place] [address] Monocytes (Bld) [#/Vol] 0.4 E9/L Normal 0.2-1.0 [facility] Comment on above: Performed By: #### 2 [id number] #### [facility] [address] [place] [address] Neutrophils (Bld) [#/Vol] 3.8 E9/L Normal 2.0-7.5 [facility] Comment on above: Performed By: #### 2 152876 #### [facility] [address] [place] [address] Neutrophils/100 WBC (Bld) 54.8 % Normal 36.0-75.0 [facility] Comment on above: Performed By: #### 2 [id number] #### [facility] [address] [place] [address] Platelet 290.0 E9/L Normal 150.0-500.0 [facility] Comment on above: Performed By: #### 2 [id number] #### [facility] [address] [place] [address] Platelet mean volume (Bld) [Entitic vol] 7.9 fL Normal 6.4-10.8 [facility] Comment on above: Performed By: #### 2 [id number] #### [facility] [address] [place] [address] RBC (Bld) [#/Vol] 4.7 E12/L Normal 4.3-5.9 [facility] Comment on above: Performed By: #### 2 [id number] #### [facility] [address] [place] [address] WBC corrected for nucl RBC Auto (Bld) [#/Vol] 6.9 E9/L Normal 4.0-11.0 [facility] Comment on above: Performed By: #### 2 [id number] #### [facility] [address] [place] [address] CHEMISTRYOrdered By: Lab ROP User on 08-14-2024 Glucose [Mass/Vol] 217 mg/dL High 55 - 99 mg/dL [facility] POC Subsection Comment on above: Result Comment: Hayden us RN/ POC Device SN [id number] 1 Invalid Interpretation Code [facility] POC Subsection POC User ID [id number] 1 Invalid Interpretation Code [facility] POC Subsection POC Username NEHAL HARRIS Invalid Interpretation Code [facility] POC Subsection Glucose [Mass/Vol] 177 mg/dL High 55 - 99 mg/dL [facility] POC Subsection Comment on above: Result Comment: Hayden abeba JUDGE/ POC Device SN [id number] 1 Invalid Interpretation Code [facility] POC Subsection POC User ID [id number] 1 Invalid Interpretation Code [facility] POC Subsection POC Username MINA MCMILLAN Invalid Interpretation Code [facility] POC Subsection Glucose [Mass/Vol] 160 mg/dL High 55 - 99 mg/dL [facility] POC Subsection Comment on above: Result Comment: Hayden abeba JUDGE/ POC Device SN [id number] 1 Invalid Interpretation Code [facility] POC Subsection POC User ID [id number] 1 Invalid Interpretation Code [facility] POC Subsection POC Username MINA MCMILLAN Invalid Interpretation Code [facility] POC Subsection CHEMISTRYOrdered By: SYSTEM SYSTEM on 08-14-2024 Anion gap [Moles/Vol] 11 mmol/L Normal 6 - 16 mEq/L [facility] Calcium [Mass/Vol] 9.0 mg/dL Normal 8.9 - 11. 1 mg/dL [facility] Chloride [Moles/Vol] 104 mmol/L Normal 101 - 1 11 mmol/L [facility] CO2 [Moles/Vol] 28 mmol/L Normal 21 - 31 mmol/L [facility] Creatinine [Mass/Vol] 1.0 mg/dL Normal 0.5 - 1.3 mg/dL [facility] eGFR 78 mL/min/1.73 m2 Normal >=59mL/min / 1.73 m2 [facility] Glucose [Mass/Vol] 162 mg/dL Normal 55 - 199 mg/dL [facility] Potassium [Moles/Vol] 4.0 mmol/L Normal 3.5 - 5.3 mmol/L [facility] Sodium [Moles/Vol] 139 mmol/L Normal 135 - 145 mmol/L [facility] Urea nitrogen [Mass/Vol] 11 mg/dL Normal 5 - 21 mg/dL [facility] Urea nitrogen/Creatinine [Mass ratio] 11 mg/mg Normal 10 - 20 [facility] Capillary Glucose POCon 07-25 Glucose [Mass/Vol] 217 mg/dL High 55-99 [facility] Comment on above: Result Comment: Hayden us RN/ Performed By: #### 2 [id number] #### [facility] [address] [place] [address] Glucose [Mass/Vol] 177 mg/dL High 55-99 [facility] Comment on above: Result Comment: Hayden us RN/ Performed By: #### 2 [id number] #### [facility] [address] [place] [address] Glucose [Mass/Vol] 160 mg/dL High 55-99 [facility] Comment on above: Result Comment: Hayden ODOM Performed By: #### 2 [id number] #### [facility] [address] [place] [address] HEMATOLOGYOrdered By: SYSTEM SYSTEM on 08-14-2024 Basophils/100 WBC (Bld) 1.0 % Normal 0.0 - 2.0 % [facility] Basophils/Leukocytes Auto (Bld) [Pure # fraction] 0.1 E9/L Normal 0.0 - 0.2 E9/L [facility] Eosinophils (Bld) [#/Vol] 0.1 E9/L Normal 0.0 - 0.5 E9/L [facility] Eosinophils/100 WBC (Bld) 2.1 % Normal 0.0 - 8.0 % [facility] Erythrocyte distribution width (RBC) [Ratio] 14.1 % Normal 10.9 - 14.2 % [facility] Hematocrit (Bld) [Volume fraction] 40.8 % Normal 34.0 - 46.0 % [facility] Hemoglobin (Bld) [Mass/Vol] 13.9 g/dL Normal 12.0 - 16.0 gm/dL [facility] Lymphocytes (Bld) [#/Vol] 2.5 E9/L Normal 1.0 - 4.0 E9/L [facility] Lymphocytes/100 WBC (Bld) 35.8 % Normal 14.0 - 50.0 % [facility] MCH (RBC) [Entitic mass] 29.2 pg Normal 27.0 - 34.0 pg [facility] MCHC (RBC) [Mass/Vol] 34.0 g/dL Normal 31.4 - 36.0 gm/dL [facility] MCV (RBC) [Entitic vol] 86.1 fL Normal 80.0 - 100.0 fL [facility] Monocytes (Bld) [#/Vol] 0.4 E9/L Normal 0.2 - 1.0 E9/L [facility] Monocytes/100 WBC (Bld) 6.3 % Normal 4.0 - 14.0 % [facility] Neutrophils (Bld) [#/Vol] 3.8 E9/L Normal 2.0 - 7.5 E9/L [facility] Neutrophils/100 WBC (Bld) 54.8 % Normal 36.0 - 75.0 % [facility] Platelet 290.0 E9/L Normal 150.0 - 500.0 E9/L [facility] Platelet mean volume (Bld) [Entitic vol] 7.9 fL Normal 6.4 - 10.8 fL [facility] RBC (Bld) [#/Vol] 4.7 E12/L Normal 4.3 - 5.9 E12/L [facility] WBC corrected for nucl RBC Auto (Bld) [#/Vol] 6.9 E9/L Normal 4.0 - 11.0 E9/L [facility] Inpatient Clinical Summaryon 08-14-2024 Inpatient Clinical Summary Inpatient Clinical Summary [place] [id number] Clinical Summary Person Information: Name: GAEL RUBY Age: 29 Years : 1995 Sex: Female PCP: YOSSI GOLDEN MD Marital Status: Phone: Race: White Ethnicity: Non- or Language: Somali Visit Id: Visit Reason: Nausea; Abdominal pain; SEVER AB PAIN/NAUSA/V Speciality: Acuity: Enc Type: Observation Med Service: Medical Arrival: 08/13/2024 08:54:31 Discharge: Dispo Type: Admitted as IP to this Hosp Address: [address] [place] [id number] Provider Notes: Diagnosis: 2:Diabetes; 3:Factor V Leiden; 4:LINA (generalized anxiety disorder); 5:GERD (gastroesophageal reflux disease); 6:Obese Problems Active Nausea & vomiting Abdominal pain Fatty liver Steatosis of liver (06/01/2024) Depressive disorder (01/08/2024) Gastroesophageal reflux disease (01/08/2024) Hyperglycemia (08/03/2023) Nausea and vomiting (01/13/2024) Gastroparesis Abdominal pain, periumbilical Postprandial diarrhea Frequent loose stools Factor V Leiden BMI 37.0-37.9, adult Diabetes Depression LINA (generalized anxiety disorder) Insomnia History of pulmonary embolism GERD (gastroesophageal reflux disease) Dysphagia Bilateral lower extremity edema Smoker Prolapsed lumbar intervertebral disc Morbid obesity Left ventricular hypertrophy (04/04/2020) Hiatal hernia (04/09/2017) Essential hypertension Endometriosis (clinical) (09/28/2022) Diarrhea Cyst of right ovary Cholangiectasis (03/26/2017) Acute pancreatitis (03/25/2017) Smoking Status: Current Every Day Smoker Functional Status: Sensory Deficits: History of Falls: Mobility Assistance Prior to Admission: ADLs: Independent Current Level of Assistance for Self-Care/Mobility: Cognitive Status: Oriented x 3 Allergies amoxicillin (Rash) (Nausea and vomiting) ketorolac (Itching) (Dyspnea) meperidine (Dyspnea) (Itching) traMADol (Unknown) Latex (Itching) Eggs (Abdominal pain) Kiwi (unk) Pyridium (unk) Measurements: Height: 172.72 cm Weight: 113.3 kg Blood Pressure: 137 mmHg / 85 mmHg BMI: 38.82 kg/m2 Procedures No Procedures Documented Immunizations No Immunizations Documented This Visit Final Med List: albuterol (Albuterol (Eqv-ProAir HFA) 90 mcg/inh inhalation aerosol) 2 Puffs Inhalation every 4 hours as needed Wheezing. fluoxetine (Prozac 40 mg Cap) 1 Capsules By Mouth every day. at bedtime. glipiZIDE (glipiZIDE 10 mg Tab) 1 Tablets By Mouth 2 times a day. hydrOXYzine (hydrOXYzine hydrochloride 25 mg Tab) 1 Tablets By Mouth every 6 hours as needed as needed for anxiety. ibuprofen insulin glargine (Lantus 100 units/mL Injection-Insulin) 30 Units Subcutaneous once a day (at bedtime). linaclotide (Linzess 72 mcg oral capsule) 1 Capsules By Mouth every other day for 90 Days. Refills: 0. metoclopramide (Reglan 10 mg Tab) 1 Tablets By Mouth every 6 hours. Refills: 0. ondansetron (Zofran 4 mg Tab) 1 Tablets By Mouth every 8 hours as needed Nausea/Vomiting. Refills: 6. pantoprazole (Pantoprazole [address] Tab) 1 Tablets By Mouth every day for 30 Days. Refills: 0. peppermint oil (Ibgard 90 mg oral delayed release capsule) 2 Capsules By Mouth 2 times a day as needed abdominal pain/cramps. Refills: 0. polyethylene glycol 3350 (MiraLax) 17 Gram By Mouth 3 times a day. promethazine (Phenergan 25 mg Supp) 1 Suppositories By rectum every 12 hours as needed Nausea/Vomiting. Refills: 6. prucalopride (Motegrity 2 mg oral tablet) 1 Tablets By Mouth every day. Refills: 3. Care Team Members: Attending Physician: Beatriz GREEN MD Consulting Physician: Aly Beverly MD Referring Physician: Follow up: Type Location Start [facility] Surgery [facility] Surgical Services 09/02/2024 2:15 PM 09/02/2024 2:25 PM Confirmed [facility] Follow Up [facility] 09/10/2024 12:00 PM 09/10/2024 12:15 PM Confirmed Patient Education Information: Normal [facility] Inpatient Patient Summaryon 08-14-2024 Inpatient Patient Summary Inpatient Patient Summary [place] [id number] Patient Discharge Instructions PERSON INFORMATION Name: FLORI GAEL Al Date of : 1995 Current Date: 08/14/2024 13:21:03 PHYSICIANS Admitting Physician: Beatriz GREEN MD Primary Care Physician: YOSSI GOLDEN MD PCP Comment: Discharge Diagnosis: 2:Diabetes; 3:Factor V Leiden; 4:LINA (generalized anxiety disorder); 5:GERD (gastroesophageal reflux disease); 6:Obese Condition at Discharge: GAEL RUBY has been given the following list of follow-up instructions, prescriptions, and patient education materials: PATIENT FOLLOW-UP INFORMATION Diet: Discharge Activity: Discharge Restrictions: Wound Care Instructions: Remove Your Dressing In Days Call Your Doctor For: IF UNABLE TO CONTACT YOUR PHYSICIAN AND YOU FEEL IT IS AN EMERGENCY, GO TO THE NEAREST EMERGENCY ROOM OR CALL 911 Home Treatment: Devices/Equipment: Blood glucose monitor Special Services: Additional Instructions: Primary Care Physician to provide the following pending test results: Follow up: In the event that this physician does not participate in your insurance network, please consult with your insurance company to find a nearby participating provider. Type Location Start [facility] Surgery [facility] Surgical Services 09/02/2024 2:15 PM 09/02/2024 2:25 PM Confirmed [facility] Follow Up [facility] 09/10/2024 12:00 PM 09/10/2024 12:15 PM Confirmed Comment: FLORI Pastor KIMBERLY R, have received the attached patient education materials/instructions and have verbalized understanding: Patient Signature Date Clinican/Nurse Signature ___ Date HERE ARE THE MEDICATION CHANGES THAT OCCURRED DURING YOUR HOSPITAL STAY Medications to Continue Taking That Have Changed Other Medications START: fluoxetine (Prozac 40 mg Cap) 1 Capsules By Mouth every day. at bedtime. Last Dose: ___Next Dose: ___ START: promethazine (Phenergan 25 mg Supp) 1 Suppositories By rectum every 12 hours as needed Nausea/Vomiting. Refills: 6. Last Dose: ___Next Dose: ___ STOP: promethazine (Phenergan 12.5 mg Supp) 1 Suppositories By rectum every 4 hours as needed Nausea/Vomiting. If zofran is ineffective. Medications to Continue with No Changes Other Medications albuterol (Albuterol (Eqv-ProAir HFA) 90 mcg/inh inhalation aerosol) 2 Puffs Inhalation every 4 hours as needed Wheezing. Last Dose: ___Next Dose: ___ glipiZIDE (glipiZIDE 10 mg Tab) 1 Tablets By Mouth 2 times a day. Last Dose: ___Next Dose: ___ hydrOXYzine (hydrOXYzine hydrochloride 25 mg Tab) 1 Tablets By Mouth every 6 hours as needed as needed for anxiety. Last Dose: ___Next Dose: ___ ibuprofen Last Dose: ___Next Dose: ___ insulin glargine (Lantus 100 units/mL Injection-Insulin) 30 Units Subcutaneous once a day (at bedtime). Last Dose: ___Next Dose: ___ linaclotide (Linzess 72 mcg oral capsule) 1 Capsules By Mouth every other day for 90 Days. Refills: 0. Last Dose: ___Next Dose: ___ metoclopramide (Reglan 10 mg Tab) 1 Tablets By Mouth every 6 hours. Refills: 0. Last Dose: ___Next Dose: ___ ondansetron (Zofran 4 mg Tab) 1 Tablets By Mouth every 8 hours as needed Nausea/Vomiting. Refills: 6. Last Dose: ___Next Dose: ___ pantoprazole (Pantoprazole [address] Tab) 1 Tablets By Mouth every day for 30 Days. Refills: 0. Last Dose: ___Next Dose: ___ peppermint oil (Ibgard 90 mg oral delayed release capsule) 2 Capsules By Mouth 2 times a day as needed abdominal pain/cramps. Refills: 0., lot: [id number] exp: 11/18 Last Dose: ___Next Dose: ___ polyethylene glycol 3350 (MiraLax) 17 Gram By Mouth 3 times a day. Last Dose: ___Next Dose: ___ prucalopride (Motegrity 2 mg oral tablet) 1 Tablets By Mouth every day. Refills: 3. Last Dose: ___Next Dose: ___ No Longer Take the Following Medications prochlorperazine (prochlorperazine 10 mg Tab) 1 Tablets. Comment: MEDICATION LIST PROVIDED FOR YOU IS A LIST OF YOUR CURRENT MEDICATIONS. PLEASE CARRY THIS WITH YOU AT ALL TIMES. albuterol (Albuterol (Eqv-ProAir HFA) 90 mcg/inh inhalation aerosol) 2 Puffs Inhalation every 4 hours as needed Wheezing. fluoxetine (Prozac 40 mg Cap) 1 Capsules By Mouth every day. at bedtime. glipiZIDE (glipiZIDE 10 mg Tab) 1 Tablets By Mouth 2 times a day. hydrOXYz (more content not included)... Normal [facility] Interdisciplinary Note - Augusto e Manageron 08-14-2024 Interdisciplinary Note - Pattern Maker Programer Interdisciplinary Note - Pattern Maker Programer SW spoke with patient in room. No family in room. Patient is alert and oriented and participates in discharge planning. Patient is , has [address] Green is following, see notes, saw patient earlier today. Patient is observation with a dx of sever ab pain and nausea. waiting to have a scope today. Patient verified PCP and insurance voiced no needs at this time. This patient will have spouse transport home. Patient white board updated, and SW contact information provided. Normal [facility] Comment on above: Result Comment: Elec tronically Signed By: Marilynn MAY, Tracy\.br\Date and Time Signed: 08/14/24 09:10 EST Patient Education - Texton 1 10-14-2023 Patient Education - Text Patient Education - Text [facility] eGFRon 08-14-2024 eGFR 78 mL/min/1.73 m2 Normal >=59 [facility] Comment on above: Performed By: #### 1 [id number] #### [facility] [address] [place] [address] B hCG Qualon 08-13-2024 Beta HCG ( test) Ql Negative [facility] Comment on above: Performed By: #### 2 [id number] #### [facility] [address] [place] [address] BMPon 08-13-2024 Anion gap [Moles/Vol] 14 mmol/L Normal 6-16 [facility] Comment on above: Performed By: #### 2 [id number] #### [facility] [address] [place] [address] Calcium [Mass/Vol] 9.5 mg/dL Normal 8.9-11.1 [facility] Comment on above: Performed By: #### 2 [id number] #### [facility] [address] [place] [address] Chloride [Moles/Vol] 105 mmol/L Normal 101-111 [facility] Comment on above: Performed By: #### 2 [id number] #### [facility] [address] [place] [address] CO2 [Moles/Vol] 24 mmol/L Normal 21-31 [facility] Comment on above: Performed By: #### 2 [id number] #### [facility] [address] [place] [address] Creatinine [Mass/Vol] 0.8 mg/dL Normal 0.5-1.3 [facility] Comment on above: Performed By: #### 2 [id number] #### [facility] [address] [place] [address] Glucose [Mass/Vol] 244 mg/dL High 55-199 [facility] Comment on above: Performed By: #### 2 [id number] #### [facility] [address] [place] [address] Potassium [Moles/Vol] 4.0 mmol/L Normal 3.5-5.3 [facility] Comment on above: Performed By: #### 2 [id number] #### [facility] [address] [place] [address] Sodium [Moles/Vol] 139 mmol/L Normal 135-145 [facility] Comment on above: Performed By: #### 2 [id number] #### [facility] [address] [place] [address] Urea nitrogen [Mass/Vol] 11 mg/dL Normal 5-21 [facility] Comment on above: Performed By: #### 2 [id number] #### [facility] [address] [place] [address] Urea nitrogen/Creatinine [Mass ratio] 14 No Units Normal 10-20 [facility] Comment on above: Performed By: #### 2 [id number] #### [facility] [address] [place] [address] CBC w/ Auto Diffon 4 Basophils/100 WBC (Bld) 1.2 % Normal 0.0-2.0 [facility] Comment on above: Performed By: #### 2 [id number] #### [facility] [address] [place] [address] Basophils/Leukocytes Auto (Bld) [Pure # fraction] 0.1 E9/L Normal 0.0-0.2 [facility] Comment on above: Performed By: #### 2 [id number] #### [facility] [address] [place] [address] Eosinophils (Bld) [#/Vol] 0.1 E9/L Normal 0.0-0.5 [facility] Comment on above: Performed By: #### 2 [id number] #### [facility] [address] [place] [address] Eosinophils/100 WBC (Bld) 1.3 % Normal 0.0-8.0 [facility] Comment on above: Performed By: #### 2 [id number] #### [facility] [address] [place] [address] Erythrocyte distribution width (RBC) [Ratio] 13.6 % Normal 10.9-14.2 [facility] Comment on above: Performed By: #### 2 [id number] #### [facility] [address] [place] [address] Hematocrit (Bld) [Volume fraction] 42.3 % Normal 34.0-46.0 [facility] Comment on above: Performed By: #### 2 [id number] #### [facility] [address] [place] [address] Hemoglobin (Bld) [Mass/Vol] 15.1 g/dL Normal 12.0-16.0 [facility] Comment on above: Performed By: #### 2 [id number] #### [facility] [address] [place] [address] Lymphocytes (Bld) [#/Vol] 2.5 E9/L Normal 1.0-4.0 [facility] Comment on above: Performed By: #### 2 [id number] #### [facility] [address] [place] [address] Lymphocytes/100 WBC (Bld) 24.8 % Normal 14.0-50.0 [facility] Comment on above: Performed By: #### 2 [id number] #### [facility] [address] [place] [address] MCH (RBC) [Entitic mass] 30.7 pg Normal 27.0-34.0 [facility] Comment on above: Performed By: #### 2 [id number] #### [facility] [address] [place] [address] MCHC (RBC) [Mass/Vol] 35.6 g/dL Normal 31.4-36.0 [facility] Comment on above: Performed By: #### 2 [id number] #### [facility] [address] [place] [address] MCV (RBC) [Entitic vol] 86.1 fL Normal 80.0-100.0 [facility] Comment on above: Performed By: #### 2 [id number] #### [facility] [address] [place] [address] Monocytes (Bld) [#/Vol] 0.4 E9/L Normal 0.2-1.0 [facility] Comment on above: Performed By: #### 2 [id number] #### [facility] [address] [place] [address] Neutrophils (Bld) [#/Vol] 7.1 E9/L Normal 2.0-7.5 [facility] Comment on above: Performed By: #### 2 [id number] #### [facility] [address] [place] [address] Neutrophils/100 WBC (Bld) 68.8 % Normal 36.0-75.0 [facility] Comment on above: Performed By: #### 2 [id number] #### [facility] [address] [place] [address] Platelet 342.0 E9/L Normal 150.0-500.0 [facility] Comment on above: Performed By: #### 2 [id number] #### [facility] [address] [place] [address] Platelet mean volume (Bld) [Entitic vol] 8.7 fL Normal 6.4-10.8 [facility] Comment on above: Performed By: #### 2 [id number] #### [facility] [address] [place] [address] RBC (Bld) [#/Vol] 4.9 E12/L Normal 4.3-5.9 [facility] Comment on above: Performed By: #### 2 [id number] #### [facility] [address] [place] [address] WBC corrected for nucl RBC Auto (Bld) [#/Vol] 10.3 E9/L Normal 4.0-11.0 [facility] Comment on above: Performed By: #### 2 [id number] #### [facility] [address] [place] [address] CHEMISTRYOrdered By: SYSTEM SYSTEM on 08-13-2024 Albumin [Mass/Vol] 4.3 g/dL Normal 3.3 - 5.0 gm/dL Remisol Chem Albumin/Globulin [Mass ratio] 1.4 {ratio} Normal 1.1 - 2.2 Remisol Chem ALP [Catalytic activity/Vol] 85 [iU]/d Normal 21 - 98 Int._Unit/L Remisol Chem ALT No additional P-5'-P [Catalytic activity/Vol] 34 [iU]/d Normal 6 - 46 Int._Unit/L Remisol Chem Anion gap [Moles/Vol] 14 mmol/L Normal 6 - 16 mEq/L Rem[facility] Chem AST [Catalytic activity/Vol] 29 [iU]/d Normal 5 - 43 Int._Unit/L Remisol Chem Bilirubin [Mass/Vol] 0.4 mg/dL Normal 0.0 - 1 .1 mg/dL Remisol Chem Bilirubin.direct [Mass/Vol] 0.0 mg/dL Normal 0.0 - 0.4 mg/dL Remisol Chem Bilirubin.indirect [Mass or moles/Vol] 0.4 mg/dL Normal 0.1 - 0.9 mg/dL Remisol Chem Calcium [Mass/Vol] 9.5 mg/dL Normal 8.9 - 11. 1 mg/dL [facility] Chem Chloride [Moles/Vol] 105 mmol/L Normal 101 - 1 11 mmol/L Rem[facility] Chem CO2 [Moles/Vol] 24 mmol/L Normal 21 - 31 mmol/L [facility] Chem Creatinine [Mass/Vol] 0.8 mg/dL Normal 0.5 - 1.3 mg/dL [facility] Chem eGFR 102 mL/min/1.73 m2 Normal >=59mL/mi n/ 1.73 m2 Rem[facility] Chem Globulin (S) [Mass/Vol] 3.1 g/dL Normal 1.4 - 4.0 gm/dL Remisol Chem Glucose [Mass/Vol] 244 mg/dL High 55 - 199 mg/dL Remisol Chem Lipase [Catalytic activity/Vol] 80 U/L High 13 - 58 unit/L Remisol Chem Potassium [Moles/Vol] 4.0 mmol/L Normal 3.5 - 5.3 mmol/L Remisol Chem Protein [Mass/Vol] 7.4 g/dL Normal 6.0 - 7.8 gm/dL Remisol Chem Sodium [Moles/Vol] 139 mmol/L Normal 135 - 145 mmol/L Remisol Chem Urea nitrogen [Mass/Vol] 11 mg/dL Normal 5 - 21 mg/dL Remisol Chem Urea nitrogen/Creatinine [Mass ratio] 14 mg/mg Normal 10 - 20 [facility] Chem Capillary Glucose POCon 07-25 Glucose [Mass/Vol] 166 mg/dL High 55-99 [facility] Comment on above: Result Comment: Hayden ODOM Performed By: #### 2 [id number] #### [facility] [address] [place] [address] Glucose [Mass/Vol] 115 mg/dL High 55-99 [facility] Comment on above: Result Comment: Hayden ODOM Performed By: #### 2 [id number] #### [facility] [address] [place] [address] ED Clinical Summaryon 2023 ED Clinical Summary ED Clinical Summary [address] [address] ED Clinical Summary Person Information Name: GAEL RUBY/New_Terence Age: 29 Years : 1995 Sex: Female Language: Somali PCP: YOSSI GOLDEN MD Marital Status: Phone: Visit Id: Visit Reason: Nausea; Abdominal pain; SEVER AB PAIN/NAUSA/V Speciality: Acuity: 3 Enc Type: Observation Med Service: Medical Arrival: 08/13/2024 08:54:31 Discharge: LOS: 000 06:28 Checkin: 08/13/2024 08:54:31 Checkout: 08/13/2024 15:22:06 Dispo Type: Admitted as IP to this [facility] EVENTS: Event Name Event Status Request Date/Time Start Date/Time Complete Date/Time Arrive Complete 08/13/2024 08:54:31 08/13/2024 08:54:31 08/13/2024 08:54:31 Document Home Meds Request 08/13/2024 08:54:31 Triage Complete 08/13/2024 08:54:31 08/13/2024 09:03:53 08/13/2024 09:03:53 Bed Assign Complete 08/13/2024 08:59:02 08/13/2024 08:59:02 08/13/2024 08:59:02 Dr Exam Complete 08/13/2024 08:59:02 08/13/2024 09:00:45 08/13/2024 09:00:45 RN Exam Complete 08/13/2024 08:59:02 08/13/2024 09:51:56 08/13/2024 09:51:56 Registration Complete 08/13/2024 09:00:45 08/13/2024 09:28:04 08/13/2024 09:28:04 Isolation Screening Request 08/13/2024 09:03:53 Meds Admin Request 08/13/2024 09:14:41 Pending Labs Complete 08/13/2024 09:15:07 08/13/2024 09:31:18 08/13/2024 10:26:53 Lab Complete 08/13/2024 09:15:07 08/13/2024 09:59:50 Patient Care Request 08/13/2024 09:15:07 Reg Complete Request 08/13/2024 09:28:04 Reg Bed Request Complete 08/13/2024 09:28:04 08/13/2024 09:28:04 08/13/2024 09:28:04 Pending Labs Complete 08/13/2024 09:36:08 08/13/2024 09:36:08 08/13/2024 09:59:50 Lab Complete 08/13/2024 09:36:08 08/13/2024 09:36:08 08/13/2024 09:59:50 Meds Admin Complete 08/13/2024 10:36:20 08/13/2024 10:47:56 Pending Labs Complete 08/13/2024 11:06:56 08/13/2024 11:06:56 08/13/2024 11:06:56 X-Ray Complete 08/13/2024 11:30:33 08/13/2024 11:50:33 08/13/2024 12:11:54 Wet Read Request 08/13/2024 12:11:54 Observation Request 08/13/2024 12:28:52 Patient Care Request 08/13/2024 12:28:54 Patient Care Request 08/13/2024 12:28:54 Patient Care Request 08/13/2024 12:28:55 Patient Care Request 08/13/2024 12:28:55 Meds Admin Complete 08/13/2024 12:29:26 08/13/2024 12:58:57 Meds Admin Request 08/13/2024 14:24:14 Patient Care Request 08/13/2024 14:24:14 Patient Care Request 08/13/2024 14:25:10 Pending Labs Request 08/13/2024 14:25:10 Lab Request 08/13/2024 14:25:10 Meds Admin Request 08/13/2024 14:25:10 Consult Request 08/13/2024 14:25:10 Meds Admin Request 08/13/2024 14:27:39 Inpatient Bed Ready Complete 08/13/2024 15:22:06 08/13/2024 15:22:06 08/13/2024 15:22:06 ADDRESS: [address] [place] [phone] PHYS DOC NOTES: MEDICAL INFORMATION: Prescriptions Given: Medications to Continue with No Changes Other Medications albuterol (Albuterol (Eqv-ProAir HFA) 90 mcg/inh inhalation aerosol) 2 Puffs Inhalation every 4 hours as needed Wheezing. glipiZIDE (glipiZIDE 10 mg Tab) 1 Tablets By Mouth 2 times a day. hydrOXYzine (hydrOXYzine hydrochloride 25 mg Tab) 1 Tablets By Mouth every 6 hours as needed as needed for anxiety. ibuprofen insulin glargine (Lantus 100 units/mL Injection-Insulin) 30 Units Subcutaneous once a day (at bedtime). metoclopramide (Reglan 10 mg Tab) 1 Tablets By Mouth every 6 hours. Refills: 0. ondansetron (Zofran 4 mg Tab) 1 Tablets By Mouth every 8 hours as needed Nausea/Vomiting. Refills: 6. pantoprazole (Pantoprazole [address] Tab) 1 Tablets By Mouth every day for 30 Days. Refills: 0. peppermint oil (Ibgard 90 mg oral delayed release capsule) 2 Capsules By Mouth 2 times a day as needed abdominal pain/cramps. Refills: 0. prochlorperazine (prochlorperazine 10 mg Tab) 1 Tablets. promethazine (Phenergan 12.5 mg Supp) 1 Suppositories By rectum every 4 hours as needed Nausea/Vomiting. If zofran is ineffective. promethazine (Phenergan 25 mg Supp) 1 Suppositories By rectum every 12 hours as needed Nausea/Vomiting. Refills: 6. promethazine (Phenergan 25 mg Supp) 1 Suppositories By rectum every 6 hours as needed Nausea/Vomiting. Refills: 0. prucalopride (Motegrity 2 mg oral tablet) 1 Tablets By Mouth every day. Refills: 3. PATIENT EDUCATION INFORMATION: Instructions: Follow up: DIAGNOSIS: 2:Diabetes; 3:Factor V Leiden; 4:LINA (generalized anxiety disorder); 5:GERD (gastroesophageal reflux disease) Normal [facility] ED Note-Physicianon 08-13-20 ED Note-Physician ED Note-Physician Basic Information Time Seen: Cameron Conklin DO 08/13/2024 09:00 Chief Complaint abdominal pain, nausea started 0630 this am History of Present Illness 29-year-old female to the emergency department with chief complaint of upper abdominal pain, nausea. Patient reports she has a history of gastroparesis. She reports her symptoms are typical for her. She reports they began over the last 24 hours. She reports some nausea without vomiting. She denies any fever, sweats, chills. She tried taking Zofran at home with no relief. She follows with Dr. Beverly for this. Review of Systems A 10 point review of systems is negative except as noted above. Medical and Surgical History: Reviewed and noted Social history: Lives at home Tobacco: Denies Physical Exam Vitals & Measurements T: 36.6 ???C(Oral) HR: 91(Peripheral) RR: 18 BP: 144/97 SpO2: 94% HT: 172 cm WT: 112 kg BMI: 37.86 VITALS: I have reviewed the triage vital signs. GENERAL: Well developed, well appearing adult in no acute distress. NEURO: Alert and oriented. Moves all extremities. Face is symmetric and expressive. EYES: PERRL. No scleral icterus or conjunctival injection. No discharge. HENT: Normocephalic, atraumatic. Hearing is grossly intact. Nares grossly patent and without discharge. Mucous membranes moist. NECK: No JVD. Patient moves neck without restriction. CARDIO: Rhythm regular. Normal rate. No murmur, rub, or gallop. Pulses equal bilaterally in the upper and lower extremity. No lower extremity edema. PULM: Lungs clear to auscultation in all krishna. No wheezes, rales, or rhonchi. No conversational dyspnea. No splinting, stridor, or accessory muscle use. GI/: Abdomen is soft and non-tender. Normoactive bowel sounds. EXTREMITIES: Symmetric muscle bulk. No joint swelling. No clubbing, cyanosis, or deformity. SKIN: Warm and dry. Normal turgor. No rash or lesions appreciated. PSYCH: Mood, affect, and interaction is appropriate to the setting. Medical Decision Making Well-appearing 29-year-old female to the emergency department with complaint of typical gastroparesis symptoms . Vital stable, the patient is afebrile. Her abdominal examination is benign. She is not vomiting in the room on presentation. Basic labs. She requested Phenergan, GI cocktail, Pepcid. These were ordered for her. Imaging is unremarkable. Lab work without significant abnormality, she does have a trivial elevation of lipase. This is consistent with past presentations. Several rounds of medications were attempted for the patient she did not have significant relief of symptoms. 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 Patient agrees with this plan. Case discussed with hospitalist who agrees to admit the patient. Assessment/Plan 1. Gastroparesis (K31.84: Gastroparesis) 2. Diabetes (E11.9: Type 2 diabetes mellitus without complications) 3. Factor V Leiden (D68.51: Activated protein C resistance) 4. LINA (generalized anxiety disorder) (F41.1: Generalized anxiety disorder) 5. GERD (gastroesophageal reflux disease) (K21.9: Gastro-esophageal reflux disease without esophagitis) Orders: Al hydroxide/Mg hydroxide/simethicone, 30 mL, Susp-Oral, Oral, Once, Stop date 08/13/24 9:14:00 EST, STAT, Start date 08/13/24 9:14:00 EST atropine/hyoscyamine/P B/scopolamine, 10 mL, Elixir, Oral, Once, Stop date 08/13/24 9:14:00 EST, STAT, Start date 08/13/24 9:14:00 EST dicyclomine, 20 mg = 2 mL, Injection, IntraMuscular, Once, Stop date 08/13/24 9:13:00 EST, STAT, Start date 08/13/24 9:13:00 EST, 08/13/24 9:13:00 EST diphenhydrAMINE, 12.5 mg = 0.25 mL, Injection, IV Push, Once, Stop date 08/13/24 10:35:00 EST, STAT, Start date 08/13/24 10:35:00 EST, 08/13/24 10:35:00 EST famotidine, 20 mg = 2 mL, Soln-IV, IV Push, Daily, STAT, Start date 08/13/24 9:14:00 EST, Infuse over 2 minute(s), 08/13/24 9:14:00 EST lidocaine topical, 200 mg, 10 mL, Soln-Oral, Oral, Once, Stop date 08/13/24 9:14:00 EST, STAT, Start date 08/13/24 9:14:00 EST metoclopramide, 5 mg = 1 mL, Injection, IV Push, Once, Stop date 08/13/24 10:36:00 EST, STAT, Start date 08/13/24 10:36:00 EST, 08/13/24 10:36:00 EST morphine, 4 mg = 1 mL, Injection, IV Push, Once, Stop date 08/13/24 12:29:00 EST, STAT, Start date 08/13/24 12:29:00 EST, 08/13/24 12:29:00 EST morphine, 4 mg = 1 mL, Injection, IV Push, Once, Stop date 08/13/24 10:35:00 EST, STAT, Start date 08/13/24 10:35:00 EST, 08/13/24 10:35:00 EST promethazine 25 mg + Sodium Chloride 0.9% intravenous solution 50 mL, Injection, IV Piggyback, Once, Stop date 08/13/24 9:14:00 EST, STAT, Start date 08/13/24 9:14:00 EST, 153 mL/hr, Infuse over 20 minute(s) Basic Metabolic Panel Beta hCG Qual CBC w/ Auto Diff ED Cardiac Monitoring eGFR Extra Blue Tube Hepatic Function Panel Lipase Level Saline Lock Insert UA with Cult Rflx XR Abdomen Series w/ Chest 1 View Disposition Plan Patient (more content not included)... Normal [facility] Comment on above: Result Comment: Elec tronically Signed By: Cameron Conklin DO\.br\Date and Time Signed: 08/13/24 18:15 EST ED Patient Education Noteon 08-13-2024 ED Patient Education Note ED Patient Education Note Normal [facility] ED Patient Summaryon 024 ED Patient Summary ED Patient Summary [address] [address] Patient Discharge Instructions Person Information Name: GAEL RUBY Age: 29 Years Arrival Date: 08/13/2024 08:54:31 Discharge Diagnosis: 2:Diabetes; 3:Factor V Leiden; 4:LINA (generalized anxiety disorder); 5:GERD (gastroesophageal reflux disease) Primary Care Physician: YOSSI GOLDEN MD Provider Information Primary Provider: Cameron Conklin DO [employer]:None The exam and treatment you received in the Emergency Department were for an urgent problem and are not intended as complete care. It is important that you follow up with a doctor, nurse practitioner, or physician???s secretary administrative assistant for ongoing care. If your symptoms become worse or you do not improve as expected and you are unable to reach your usual health care provider, you should return to the Emergency Department. We are available 24 hours a day. GAEL RUBY has been given the following list of patient education materials, prescriptions and follow-up instructions: Follow-up Instructions: In the event that this physician does not participate in your insurance network, please consult with your insurance company to find a nearby participating provider. Patient Education Materials: A MESSAGE TO ALL PATIENTS REGARDING OPIOIDS PRESCRIPTION OPIOIDS: WHAT YOU NEED TO KNOW Prescription opioids can be used to help relieve [id number]-oi-[id number] pain and are often prescribed following a surgery or injury, or for certain health conditions. These medications can be an important part of the treatment but also come with serious risks. It is important to work with your healthcare provider to make sure you are getting the safest, most effective care. WHAT ARE THE RISKS AND SIDE EFFECTS OF OPIOID USE? Prescription opioids carry serious risks of addiction and overdose, especially with prolonged use. An opioid overdose, often marked by slowed breathing, can cause sudden . The use of prescription opioids can have a number of side effects as well, even when taken as directed: ??? Tolerance???meaning you might need to take more of the medication for the same pain relief ??? Physical dependence???meaning you have symptoms of withdrawal when a medication is stopped ??? Increased sensitivity to pain ??? Constipation ??? Nausea, vomiting, and dry mouth ??? Sleepiness and dizziness ??? Confusion ??? Depression ??? Low levels of testosterone that can result in lower sex drive, energy, and strength ??? Itching and sweating RISKS ARE GREATER WITH: ??? History of drug misuse, substance use disorder, or overdose ??? Mental health conditions (such as depression or anxiety) ??? Sleep apnea ??? Older age (65 years and older) ??? Avoid alcohol while taking prescription opioids. Also, unless specifically advised by your health care provider, medications to avoid include: ??? Benzodiazepines (such as Xanax or Valium) ??? Muscle relaxants (such as Soma or Flexeril) ??? Hypnotics (such as Ambien or Lunesta) ??? Other prescription opioids KNOW YOUR OPTIONS Talk to your health care provider about ways to manage your pain that don???t involve prescription opioids. Some of these options may actually work better and have fewer risks and side effects. Options may include: ??? Pain relievers such as acetaminophen, ibuprofen, and naproxen ??? Some medication that are also used for depression or seizures ??? Physical therapy and exercise ??? Cognitive behavioral therapy, a psychological, goal-directed approach, in which patients learn how to modify physical, behavioral, and emotional triggers of pain and stress. IF YOU ARE PRESCRIBED OPIOIDS FOR PAIN: ??? Never take opioids in greater amounts or more often than prescribed. ??? Follow up with your primary health care provider. o Work together to create a plan on how to manage your pain. o Talk about ways to help manage your pain that don???t involve prescription opioids. o Talk about any and all concerns and side effects. ??? Help prevent misuse and abuse o Never sell or share prescription opioids. o Never use another person???s prescription opioids. ??? Store prescription opioids in a secure place and out of reach of others (this may include visitors, children, friends, and family). ??? Safely dispose of unused prescription opioids: Find your community drug take-back program or your pharmacy mail-back program, or flush them down the toilet, following guidance from the Food and Drug Administration (www.fda.gov/Drugs/Res ourcesForYou). ??? Visit www.cdc.gov/drugoverdo se to learn about the risks of opioids abuse and overdose. ??? If you believe you may be struggling with addiction, tell your health manager managed care and ask for guidance or call [facility]???S National Helpline at 2-749-367-DFWG. (more content not included)... Normal [facility] Extra Blueon 08-13-2024 Tube Collected Plasma Yes Invalid Interpretation Code [facility] Comment on above: Performed By: #### 1 [id number] #### [facility] [address] [place] [address] HEMATOLOGYOrdered By: SYSTEM SYSTEM on 08-13-2024 Basophils/100 WBC (Bld) 1.2 % Normal 0.0 - 2.0 % Remisol Heme Basophils/Leukocytes Auto (Bld) [Pure # fraction] 0.1 E9/L Normal 0.0 - 0.2 E9/L Remisol Heme Eosinophils (Bld) [#/Vol] 0.1 E9/L Normal 0.0 - 0.5 E9/L Remisol Heme Eosinophils/100 WBC (Bld) 1.3 % Normal 0.0 - 8.0 % Remisol Heme Erythrocyte distribution width (RBC) [Ratio] 13.6 % Normal 10.9 - 14.2 % Remisol Heme Hematocrit (Bld) [Volume fraction] 42.3 % Normal 34.0 - 46.0 % Remisol Heme Hemoglobin (Bld) [Mass/Vol] 15.1 g/dL Normal 12.0 - 16.0 gm/dL Remisol Heme Lymphocytes (Bld) [#/Vol] 2.5 E9/L Normal 1.0 - 4.0 E9/L Remisol Heme Lymphocytes/100 WBC (Bld) 24.8 % Normal 14.0 - 50.0 % Remisol Heme MCH (RBC) [Entitic mass] 30.7 pg Normal 27.0 - 34.0 pg Remisol Heme MCHC (RBC) [Mass/Vol] 35.6 g/dL Normal 31.4 - 36.0 gm/dL Remisol Heme MCV (RBC) [Entitic vol] 86.1 fL Normal 80.0 - 100.0 fL Remisol Heme Monocytes (Bld) [#/Vol] 0.4 E9/L Normal 0.2 - 1.0 E9/L Remisol Heme Monocytes/100 WBC (Bld) 3.9 % Low 4.0 - 14.0 % Remisol Heme Neutrophils (Bld) [#/Vol] 7.1 E9/L Normal 2.0 - 7.5 E9/L Remisol Heme Neutrophils/100 WBC (Bld) 68.8 % Normal 36.0 - 75.0 % Remisol Heme Platelet 342.0 E9/L Normal 150.0 - 500.0 E9/L Remisol Heme Platelet mean volume (Bld) [Entitic vol] 8.7 fL Normal 6.4 - 10.8 fL Remisol Heme RBC (Bld) [#/Vol] 4.9 E12/L Normal 4.3 - 5.9 E12/L Remisol Heme WBC corrected for nucl RBC Auto (Bld) [#/Vol] 10.3 E9/L Normal 4.0 - 11.0 E9/L Remisol Heme Hep Func Panelon 08-13-2024 Albumin [Mass/Vol] 4.3 g/dL Normal 3.3-5.0 [facility] Comment on above: Performed By: #### 2 [id number] #### [facility] [address] [place] [address] Albumin/Globulin (S) [Mass conc ratio] 1.4 Normal 1.1-2.2 [facility] Comment on above: Performed By: #### 2 [id number] #### [facility] [address] [place] [address] ALP [Catalytic activity/Vol] 85 Int._Unit/L Normal 21-98 [facility] Comment on above: Performed By: #### 2 [id number] #### [facility] [address] [place] [address] ALT No additional P-5'-P [Catalytic activity/Vol] 34 Int._Unit/L Normal 6-46 [facility] Comment on above: Performed By: #### 2 [id number] #### [facility] [address] [place] [address] AST [Catalytic activity/Vol] 29 Int._Unit/L Normal 5-43 [facility] Comment on above: Performed By: #### 2 [id number] #### [facility] [address] [place] [address] Bilirubin [Mass/Vol] 0.4 mg/dL Normal 0.0-1.1 [facility] Comment on above: Performed By: #### 2 [id number] #### [facility] [address] [place] [address] Bilirubin.direct [Mass/Vol] 0.0 mg/dL Normal 0.0-0.4 [facility] Comment on above: Performed By: #### 2 [id number] #### [facility] [address] [place] [address] Bilirubin.indirect [Mass or moles/Vol] 0.4 mg/dL Normal 0.1-0.9 [facility] Comment on above: Performed By: #### 2 [id number] #### [facility] [address] [place] [address] Globulin (S) [Mass/Vol] 3.1 g/dL Normal 1.4-4.0 [facility] Comment on above: Performed By: #### 2 [id number] #### [facility] [address] [place] [address] Protein [Mass/Vol] 7.4 g/dL Normal 6.0-7.8 [facility] Comment on above: Performed By: #### 2 [id number] #### [facility] [address] [place] [address] Lipase Levelon 08-13-2024 Lipase [Catalytic activity/Vol] 80 U/L High 13-58 [facility] Comment on above: Performed By: #### 2 [id number] #### [facility] [address] [place] [address] SEROLOGYOrdered By: Mouna vazquez on 08-13-2024 Beta HCG ( test) Ql Negative (08/13/24 9:31 AM) Normal [facility] Man Sero UA with Cult Rflxon 08-13-20 Bilirubin Ql (U) Negative Normal Negative [facility] Comment on above: Performed By: #### 4 [id number] #### [facility] [address] [place] [address] Clarity (U) Clear Normal Clear [facility] Comment on above: Performed By: #### 4 [id number] #### [facility] [address] [place] [address] Color (U) Colorless Abnormal Yellow [facility] Comment on above: Result Comment: Micr oscopic readings are only performed on those samples that meet specific criteria set forth by [facility]. Performed By: #### 4 [id number] #### [facility] [address] [place] [address] Glucose Ql (U) 4+ mg/dL Abnormal Negative [facility] Comment on above: Performed By: #### 4 [id number] #### [facility] [address] [place] [address] Hemoglobin Auto test strip (U) [Mass/Vol] Negative Normal Negative [facility] Comment on above: Performed By: #### 4 [id number] #### [facility] [address] [place] [address] Ketones Auto test strip Ql (U) Negative Normal Negative [facility] Comment on above: Performed By: #### 4 [id number] #### [facility] [address] [place] [address] Leukocyte esterase Auto test strip Ql (U) Negative Normal Negative [facility] Comment on above: Performed By: #### 4 [id number] #### [facility] [address] [place] [address] Nitrite Auto test strip Ql (U) Negative Normal Negative [facility] Comment on above: Performed By: #### 4 [id number] #### [facility] [address] [place] [address] pH (U) 5.5 [pH] Invalid Interpretation Code 5.0-9.0 [facility] Comment on above: Performed By: #### 4 [id number] #### [facility] [address] [place] [address] Protein Ql (U) Negative Normal Negative [facility] Comment on above: Performed By: #### 4 [id number] #### [facility] [address] [place] [address] Specific gravity (U) [Rel density] 1.036 Invalid Interpretation Code 1.005-1.030 [facility] Comment on above: Performed By: #### 4 [id number] #### [facility] [address] [place] [address] Urobilinogen (U) [Mass/Vol] Negative Normal Negative [facility] Comment on above: Performed By: #### 4 [id number] #### [facility] [address] [place] [address] Type of Urine collection method Clean Catch Normal [facility] Comment on above: Performed By: #### 4 [id number] #### [facility] [address] [place] [address] URINALYSISOrdered By: SYSTEM SYSTEM on 08-13-2024 Bilirubin Ql (U) Negative Normal Negativemg/ dL [facility] UA Auto SS Clarity (U) Clear (08/13/24 9:22 AM) Normal Clear [facility] UA Auto SS Color (U) Colorless 1 *ABN* (08/13/24 9:22 AM) Invalid Interpretation Code Yellow [facility] UA Auto SS Comment on above: Interpretive Data: M icroscopic readings are only performed on those samples that meet specific criteria set forth by [facility]. Glucose Ql (U) 4+ mg/dL Invalid Interpretation Code Negativemg/ dL [facility] UA Auto SS Hemoglobin Auto test strip (U) [Mass/Vol] Negative Normal Negativemg/ dL [facility] UA Auto SS Ketones Auto test strip Ql (U) Negative Normal Negativemg/ dL [facility] UA Auto SS Leukocyte esterase Auto test strip Ql (U) Negative Normal NegativeLeu /uL [facility] UA Auto SS Nitrite Auto test strip Ql (U) Negative Normal Negativemg/ dL [facility] UA Auto SS pH (U) 5.5 *NA* (08/13/24 9:22 AM) Invalid Interpretation Code 5.0 - 9.0 [facility] UA Auto SS Protein Ql (U) Negative Normal Negativemg/ dL [facility] UA Auto SS Specific gravity (U) [Rel density] 1.036 *NA* (08/13/24 9:22 AM) Invalid Interpretation Code 1.005 - 1.030 [facility] UA Auto SS Urobilinogen (U) [Mass/Vol] Negative Normal Negativemg/ dL [facility] UA Auto SS URINALYSISOrdered By: Cameron Conklin on 11-21-2024 UA Spec Desc Clean Catch (08/13/24 9:22 AM) Normal [facility] UA Auto SS XR Abdomen Series w/ Chest 1 Viewon 08-13-2024 XR Abdomen Series w/ Chest 1 View Exam Date/Time: 08/13/2024 12:11 EST Reason for Exam: Abdominal pain Report IMPRESSION: NO RADIOGRAPHIC EVIDENCE OF ACUTE INTRATHORACIC PROCESS. NONOBSTRUCTIVE BOWEL GAS PATTERN. EXAM: XR Abdomen Series w/ Chest 1 View HISTORY: Abdominal pain. COMPARISON: Radiograph 08/06/2024 TECHNIQUE: Frontal view of the chest and supine and upright views of the abdomen were performed. FINDINGS: The cardiomediastinal silhouette is within normal limits. No pneumothorax, pleural effusion, or consolidation. Nonobstructive bowel gas pattern. No evidence of free air. No pathologic calcifications. No acute osseous abnormality. Ordering Provider: Cameron Conklin FINAL REPORT Dictated: 08/13/2024 12:29 pm Malena Clarke DO Signed (Electronic Signature): 08/13/2024 12:29 pm Signed by: Malena Clarke DO Transcribed by: VENKAT Technologist: DORIE Technical Comments Radiation Dose: Ka,r in mGy = na DAP = na Normal [facility] eGFRon 08-13-2024 eGFR 102 mL/min/1.73 m2 Normal >=59 [facility] Comment on above: Performed By: #### 1 [id number] #### [facility] [address] [place] [address] Ambulatory Visit Summaryon 1 10-10-2023 Ambulatory Visit Summary Ambulatory Visit Summary GAEL RUBY :1995 Visit Date:08/10/2024 Ambulatory Visit Instructions Your Diagnosis Abdominal pain Gastroparesis Constipation Nausea & vomiting Fatty liver Dysphagia Your Care Team Attending Physician - Beto GREWAL, Aly Whitten Primary Care Physician - YOSSI GOLDEN MD This Is Your Medications List prucalopride (Motegrity 2 mg oral tablet) Contact prescribing physician if questions or concerns albuterol (Albuterol (Eqv-ProAir HFA) 90 mcg/inh inhalation aerosol) glipiZIDE (glipiZIDE 10 mg Tab) hydrOXYzine (hydrOXYzine hydrochloride 25 mg Tab) ibuprofen insulin glargine (Lantus 100 units/mL Injection-Insulin) metoclopramide (Reglan 10 mg Tab) ondansetron (Zofran 4 mg Tab) ondansetron (ondansetron 4 mg Dis Tab) pantoprazole (Pantoprazole [address] Tab) prochlorperazine (prochlorperazine 10 mg Tab) promethazine (Phenergan 12.5 mg Supp) promethazine (Phenergan 25 mg Supp) promethazine (Phenergan 25 mg Supp) Procedures Performed section (2018), section (2016), Bilateral oophorectomy, section, Cholecystectomy, Extraction of wisdom tooth, Laparoscopic hysterectomy, Laparoscopy, Tear duct, Tonsillectomy. Discharge Vitals Heart Rate (Peripheral) 87 Respiratory Rate 16 Blood Pressure 129/83 Height 172 cm Height 68 in Weight 112 kg Weight 246.917 lb BMI 37.86 What to do next Scheduled Follow-Up Appointments 2023 12:00 PM EST With: Beto GREWAL, Aly Whitten Where: [facility] [address] [facility] [address] [place] [phone] Medications What How Much When Instructions New prucalopride (Motegrity 2 mg oral tablet) 1 Tablets By Mouth Every day Refills: 3 Pickup at [facility] [phone] Unchanged albuterol (Albuterol (Eqv-ProAir HFA) 90 mcg/ inh inhalation aerosol) 2 Puffs Inhalation Every 4 hours as needed for Wheezing Contact prescribing physician if questions or concerns Unchanged glipiZIDE (glipiZIDE 10 mg Tab) 1 Tablets By Mouth 2 times a day Contact prescribing physician if questions or concerns Unchanged hydrOXYzine (hydrOXYzine hydrochloride 25 mg Tab) 1 Tablets By Mouth Every 6 hours as needed for as needed for anxiety Contact prescribing physician if questions or concerns Unchanged ibuprofen Contact prescribing physician if questions or concerns Unchanged insulin glargine (Lantus 100 units/ mL Injection-Insulin) 30 Units Subcutaneous Once a day (at bedtime) Contact prescribing physician if questions or concerns Unchanged metoclopramide (Reglan 10 mg Tab) 1 Tablets By Mouth Every 6 hours Contact prescribing physician if questions or concerns Unchanged ondansetron (ondansetron 4 mg Dis Tab) 1 Tablets By Mouth Every 6 hours Duration: 3 Days Contact prescribing physician if questions or concerns Unchanged ondansetron (Zofran 4 mg Tab) 1 Tablets By Mouth Every 8 hours as needed for Nausea/Vomiting Contact prescribing physician if questions or concerns Unchanged pantoprazole (Pantoprazole [address] Tab) 1 Tablets By Mouth Every day Duration: 30 Days Contact prescribing physician if questions or concerns Unchanged prochlorperazine (prochlorperazine 10 mg Tab) 1 Tablets Contact prescribing physician if questions or concerns Unchanged promethazine (Phenergan 12.5 mg Supp) 1 Suppositories By rectum Every 4 hours as needed for Nausea/Vomiting If zofran is ineffective Contact prescribing physician if questions or concerns Unchanged promethazine (Phenergan 25 mg Supp) 1 Suppositories By rectum Every 12 hours as needed for Nausea/Vomiting Contact prescribing physician if questions or concerns Unchanged promethazine (Phenergan 25 mg Supp) 1 Suppositories By rectum Every 6 hours as needed for Nausea/Vomiting Contact prescribing physician if questions or concerns Pharmacy Information [facility] [id number]: [address], [place] [phone] Allergies Eggs (Abdominal pain) Kiwi (unk) Latex (Itching) Pyridium (unk) amoxicillin (Rash, Nausea and vomiting) ketorolac (Itching, Dyspnea) meperidine (Itching, Dyspnea) traMADol (Unknown) Problems Ongoing - Any problem that you are currently receiving treatment for. Abdominal pain Abdominal pain, periumbilical Acute pancreatitis Bilateral lower extremity edema BMI 37.0-37.9, adult Cholangiectasis Cyst of right ovary Depression Depressive disorder Diabetes Diarrhea Dysphagia Endometriosis (clinical) Essential hypertension Factor V Leiden Fatty liver Frequent loose stools LINA (generalized anxiety disorder) Gastroesophageal reflux disease Gastroparesis GERD (gastroesophageal reflux disease) Hiatal hernia History of pulmonary embolism Hyperglycemia Insomnia Left ventricular hypertrophy Morbid obesity Nausea & vomiting Nausea and vomiting Postprandial diarrhea Prolap (more content not included)... Normal [facility] Gastroenterology Office/Clin ic Noteon 08-10-2024 Gastroenterology Office/Clinic Note Gastroenterology Office/Clinic Note Chief Complaint follow up to ER HPI Staff Patient is a 29 year old female who presents today for a f/u from [facility] ER. She has had multiple ER visits over the last couple weeks for the same symptoms. Abdominal pain: abdominal discomfort with associated nausea and occasional vomiting, does have constipation too. When did you first have this pain: Claudy am has been the worst. Quality (sharp, dull): sharp pain Constant or comes or go: constant location and radiation:middle, sometimes lower right. Relation to food: Worse with spicy foods Given IV Protonix, Reglan, Benadryl and Phenergan while in ER with some improvement with nausea, not pain. Taking Bentyl? Using Phenergan suppositories? Taking Zofran? -ER dr said not to take bentyl, they told her not to take it because it slows down the system, so she did not take it. History of gastroparesis. been doing low fat, lower fiber foods, nothing helps. Denies blood thinners. Denies GLP-1 agonists. No FHx of colon cancer. Last appointment with Dr. Beverly 06/01/24: Assessment/Plan 1. Gastroparesis (K31.84: Gastroparesis) Gastric emptying study in April will currently showed 37% after 4 hours Symptoms improved with Zofran and Phenergan more than Reglan Will refill Zofran and Phenergan suppositories as needed we discussed side effects as well, avoid Reglan given she is florinda use Phenergan Also discussed possible side effects of Phenergan and hydroxyzine, she only takes it very rarely when she travels, advised not to take them together If symptoms worsen in the future we will consider Motegrity, currently not constipated, but in the hospital after leaving the hospital she was constipated likely due to not moving and using narcotics If needed we can refer to Dr. Gastelum at [facility] for evaluation of Kunal PIEDRA She is currently on Trulicity, started a year ago, she is not sure if her symptoms worsened since then, if we cannot control her symptoms it is reasonable to discuss with primary care doctor considering different therapy like Mounjaro or Ozempic to see if it is better tolerated of that class of medicine is needed 2. Fatty liver (K76.0: Fatty (change of) liver, not elsewhere classified) Will get FibroScan, discussed lifestyle modifications, exercise, Mediterranean diet, coffee, weight loss, good control of her diabetes Ordered: Fibroscan (Hospital Procedure) 3. Diabetes mellitus (E11.9: Type 2 diabetes mellitus without complications) 4. Acute constipation (K59.00: Constipation, unspecified) Laboratory Results CBC CMP Basophil Absolute: 0.1 E9/L (08/07/24) A/G Ratio: 1.5 (08/07/24) Basophil Auto: 0.8 % (08/07/24) AGAP: 13 mEq/L (08/07/24) Eos Absolute: 0.1 E9/L (08/07/24) Albumin Lvl: 4.5 gm/dL (08/07/24) Eos Auto: 1.1 % (08/07/24) Alk Phos: 82 Int._Unit/L (08/07/24) Hct: 44.6 % (08/07/24) ALT: 35 Int._Unit/L (08/07/24) HGB: 15.2 gm/dL (08/07/24) AST: 34 Int._Unit/L (08/07/24) Lymph Absolute: 2.8 E9/L (08/07/24) Bili Total: 0.5 mg/dL (08/07/24) Lymph Auto: 29 % (08/07/24) BUN: 17 mg/dL (08/07/24) MCH: 29.3 pg (08/07/24) BUN/Creat Ratio: 21 High (08/07/24) MCHC: 34.1 gm/dL (08/07/24) Calcium Lvl: 9.9 mg/dL (08/07/24) MCV: 85.8 fL (08/07/24) Chloride: 103 mmol/L (08/07/24) [place] Absolute: 0.5 E9/L (08/07/24) CO2: 26 mmol/L (08/07/24) [place] Auto: 5.7 % (08/07/24) Creatinine: 0.8 mg/dL (08/07/24) MPV: 8.1 fL (08/07/24) Globulin: 3.1 gm/dL (08/07/24) Neutro Absolute: 6.1 E9/L (08/07/24) Glucose Lvl: 199 mg/dL (08/07/24) Neutro Auto: 63.4 % (08/07/24) Potassium Lvl: 4.4 mmol/L (08/07/24) Platelet: 360 E9/L (08/07/24) Sodium Lvl: 138 mmol/L (08/07/24) RBC: 5.2 E12/L (08/07/24) Total Protein: 7.6 gm/dL (08/07/24) RDW: 13.6 % (08/07/24) WBC: 9.5 E9/L (08/07/24) UA Blood: Negat (08/06/24) UA Bili: Negat (08/06/24) UA Clarity: Clear (08/06/24) UA Color: Light-Yellow (08/06/24) UA Glucose: 4+ Abnormal (08/06/24) UA Ketones: Negat (08/06/24) UA Leuk Est: Negat (08/06/24) UA Nitrite: Negat (08/06/24) UA pH: 5.5 (08/06/24) UA Protein: Negat (08/06/24) UA Spec Desc: Clean Catch (08/06/24) UA Spec Grav: 1.035 (08/06/24) UA Urobilinogen: Negat (08/06/24) XR Abdomen Series w/ Chest 1 View 08/06/24: IMPRESSION: 1. NO EVIDENCE OF ACTIVE DISEASE IN THE CHEST. 2. NONOBSTRUCTIVE ABDOMINAL BOWEL GAS PATTERN AND NO PNEUMOPERITONEUM. Fibroscan 06/18/24: CAP- 333 E- 10.1 S3, F3 CT Abdomen/Pelvis w/ Contrast 05/23/24: IMPRESSION: - No acute process in the abdomen/pelvis. Gastric Emptying Study 05/14/24: FINDINGS At 60 min, there is 12% emptying of the stomach At 120 min, there is 14% emptying of the stomach At 240 min, there is 37% emptying of the stomach No significant esophageal retention, hiatal hernia or reflux was observed IMPRESSION Severely delayed gastric emptying Review of Systems PHQ Score Initial Depression Screen Score: 3 SCORE Detailed Depr (more content not included)... Normal [facility] Comment on above: Result Comment: Elec tronically Signed By: Beto GREWAL, Aly Whitten\.br\Date and Time Signed: 08/10/24 11:08 EST CBC w/ Auto Diffon 4 Basophils/100 WBC (Bld) 0.8 % Normal 0.0-2.0 [facility] Comment on above: Performed By: #### 2 [id number] #### [facility] [address] [place] [address] Basophils/Leukocytes Auto (Bld) [Pure # fraction] 0.1 E9/L Normal 0.0-0.2 [facility] Comment on above: Performed By: #### 2 [id number] #### [facility] [address] [place] [address] Eosinophils (Bld) [#/Vol] 0.1 E9/L Normal 0.0-0.5 [facility] Comment on above: Performed By: #### 2 [id number] #### [facility] [address] [place] [address] Eosinophils/100 WBC (Bld) 1.1 % Normal 0.0-8.0 [facility] Comment on above: Performed By: #### 2 [id number] #### [facility] [address] [place] [address] Erythrocyte distribution width (RBC) [Ratio] 13.6 % Normal 10.9-14.2 [facility] Comment on above: Performed By: #### 2 [id number] #### [facility] [address] [place] [address] Hematocrit (Bld) [Volume fraction] 44.6 % Normal 34.0-46.0 [facility] Comment on above: Performed By: #### 2 [id number] #### [facility] [address] [place] [address] Hemoglobin (Bld) [Mass/Vol] 15.2 g/dL Normal 12.0-16.0 [facility] Comment on above: Performed By: #### 2 [id number] #### [facility] [address] [place] [address] Lymphocytes (Bld) [#/Vol] 2.8 E9/L Normal 1.0-4.0 [facility] Comment on above: Performed By: #### 2 [id number] #### [facility] [address] [place] [address] Lymphocytes/100 WBC (Bld) 29.0 % Normal 14.0-50.0 [facility] Comment on above: Performed By: #### 2 [id number] #### [facility] [address] [place] [address] MCH (RBC) [Entitic mass] 29.3 pg Normal 27.0-34.0 [facility] Comment on above: Performed By: #### 2 [id number] #### [facility] [address] [place] [address] MCHC (RBC) [Mass/Vol] 34.1 g/dL Normal 31.4-36.0 [facility] Comment on above: Performed By: #### 2 [id number] #### [facility] [address] [place] [address] MCV (RBC) [Entitic vol] 85.8 fL Normal 80.0-100.0 [facility] Comment on above: Performed By: #### 2 [id number] #### [facility] [address] [place] [address] Monocytes (Bld) [#/Vol] 0.5 E9/L Normal 0.2-1.0 [facility] Comment on above: Performed By: #### 2 [id number] #### [facility] [address] [place] [address] Neutrophils (Bld) [#/Vol] 6.1 E9/L Normal 2.0-7.5 [facility] Comment on above: Performed By: #### 2 [id number] #### [facility] [address] [place] [address] Neutrophils/100 WBC (Bld) 63.4 % Normal 36.0-75.0 [facility] Comment on above: Performed By: #### 2 [id number] #### [facility] [address] [place] [address] Platelet 360.0 E9/L Normal 150.0-500.0 [facility] Comment on above: Performed By: #### 2 [id number] #### [facility] [address] [place] [address] Platelet mean volume (Bld) [Entitic vol] 8.1 fL Normal 6.4-10.8 [facility] Comment on above: Performed By: #### 2 [id number] #### [facility] [address] [place] [address] RBC (Bld) [#/Vol] 5.2 E12/L Normal 4.3-5.9 [facility] Comment on above: Performed By: #### 2 [id number] #### [facility] [address] [place] [address] WBC corrected for nucl RBC Auto (Bld) [#/Vol] 9.5 E9/L Normal 4.0-11.0 [facility] Comment on above: Performed By: #### 2 [id number] #### [facility] [address] [place] [address] CHEMISTRYOrdered By: SYSTEM SYSTEM on 08-07-2024 Albumin [Mass/Vol] 4.5 g/dL Normal 3.3 - 5.0 gm/dL Rem[facility] Chem Albumin/Globulin [Mass ratio] 1.5 {ratio} Normal 1.1 - 2.2 [facility] ALP [Catalytic activity/Vol] 82 [iU]/d Normal 21 - 98 Int._Unit/L [facility] Chem ALT No additional P-5'-P [Catalytic activity/Vol] 35 [iU]/d Normal 6 - 46 Int._Unit/L [facility] Anion gap [Moles/Vol] 13 mmol/L Normal 6 - 16 mEq/L [facility] AST [Catalytic activity/Vol] 34 [iU]/d Normal 5 - 43 Int._Unit/L [facility] Bilirubin [Mass/Vol] 0.5 mg/dL Normal 0.0 - 1 .1 mg/dL [facility] Calcium [Mass/Vol] 9.9 mg/dL Normal 8.9 - 11. 1 mg/dL [facility] Chloride [Moles/Vol] 103 mmol/L Normal 101 - 1 11 mmol/L [facility] CO2 [Moles/Vol] 26 mmol/L Normal 21 - 31 mmol/L [facility] Creatinine [Mass/Vol] 0.8 mg/dL Normal 0.5 - 1.3 mg/dL [facility] eGFR 102 mL/min/1.73 m2 Normal >=59mL/mi n/ 1.73 m2 [facility] Globulin (S) [Mass/Vol] 3.1 g/dL Normal 1.4 - 4.0 gm/dL [facility] Glucose [Mass/Vol] 199 mg/dL Normal 55 - 199 mg/dL [facility] Lipase [Catalytic activity/Vol] 78 U/L High 13 - 58 unit/L [facility] Potassium [Moles/Vol] 4.4 mmol/L Normal 3.5 - 5.3 mmol/L [facility] Protein [Mass/Vol] 7.6 g/dL Normal 6.0 - 7.8 gm/dL [facility] Sodium [Moles/Vol] 138 mmol/L Normal 135 - 145 mmol/L [facility] Urea nitrogen [Mass/Vol] 17 mg/dL Normal 5 - 21 mg/dL [facility] Urea nitrogen/Creatinine [Mass ratio] 21 mg/mg High 10 - 20 [facility] CMPon 08-07-2024 Albumin [Mass/Vol] 4.5 g/dL Normal 3.3-5.0 [facility] Comment on above: Performed By: #### 2 [id number] #### [facility] [address] [place] [address] Albumin/Globulin (S) [Mass conc ratio] 1.5 Normal 1.1-2.2 [facility] Comment on above: Performed By: #### 2 [id number] #### [facility] [address] [place] [address] ALP [Catalytic activity/Vol] 82 Int._Unit/L Normal 21-98 [facility] Comment on above: Performed By: #### 2 [id number] #### [facility] [address] [place] [address] ALT No additional P-5'-P [Catalytic activity/Vol] 35 Int._Unit/L Normal 6-46 [facility] Comment on above: Performed By: #### 2 [id number] #### [facility] [address] [place] [address] Anion gap [Moles/Vol] 13 mmol/L Normal 6-16 [facility] Comment on above: Performed By: #### 2 [id number] #### [facility] [address] [place] [address] AST [Catalytic activity/Vol] 34 Int._Unit/L Normal 5-43 [facility] Comment on above: Performed By: #### 2 [id number] #### [facility] [address] [place] [address] Bilirubin [Mass/Vol] 0.5 mg/dL Normal 0.0-1.1 [facility] Comment on above: Performed By: #### 2 [id number] #### [facility] [address] [place] [address] Calcium [Mass/Vol] 9.9 mg/dL Normal 8.9-11.1 [facility] Comment on above: Performed By: #### 2 [id number] #### [facility] [address] [place] [address] Chloride [Moles/Vol] 103 mmol/L Normal 101-111 [facility] Comment on above: Performed By: #### 2 [id number] #### [facility] [address] [place] [address] CO2 [Moles/Vol] 26 mmol/L Normal 21-31 [facility] Comment on above: Performed By: #### 2 [id number] #### [facility] [address] [place] [address] Creatinine [Mass/Vol] 0.8 mg/dL Normal 0.5-1.3 [facility] Comment on above: Performed By: #### 2 [id number] #### [facility] [address] [place] [address] Globulin (S) [Mass/Vol] 3.1 g/dL Normal 1.4-4.0 [facility] Comment on above: Performed By: #### 2 [id number] #### [facility] [address] [place] [address] Glucose [Mass/Vol] 199 mg/dL Normal 55-199 [facility] Comment on above: Performed By: #### 2 [id number] #### [facility] [address] [place] [address] Potassium [Moles/Vol] 4.4 mmol/L Normal 3.5-5.3 [facility] Comment on above: Performed By: #### 2 [id number] #### [facility] [address] [place] [address] Protein [Mass/Vol] 7.6 g/dL Normal 6.0-7.8 [facility] Comment on above: Performed By: #### 2 [id number] #### [facility] [address] [place] [address] Sodium [Moles/Vol] 138 mmol/L Normal 135-145 [facility] Comment on above: Performed By: #### 2 [id number] #### [facility] [address] [place] [address] Urea nitrogen [Mass/Vol] 17 mg/dL Normal 5-21 [facility] Comment on above: Performed By: #### 2 [id number] #### [facility] [address] [place] [address] Urea nitrogen/Creatinine [Mass ratio] 21 No Units High 10-20 [facility] Comment on above: Performed By: #### 2 [id number] #### [facility] [address] [place] [address] ED Clinical Summaryon 2023 ED Clinical Summary ED Clinical Summary [address] [address] ED Clinical Summary Person Information Name: GAEL RUBY/[place] Age: 29 Years : 1995 Sex: Female Language: Somali PCP: OYSSI GOLDEN MD Marital Status: Visit Id: Visit Reason: Abdominal pain; Nausea; GASTRO PAIN / NAUESEA - STATES SHE WAS RELEASED THIS MORNING Speciality: Acuity: 3 Enc Type: Emergency Med Service: Emergency Arrival: 08/07/2024 09:05:40 Discharge: 08/07/2024 12:03:06 LOS: 000 02:58 Checkin: 08/07/2024 09:05:40 Checkout: 08/07/2024 12:03:06 Dispo Type: Home (Routine DC) EVENTS: Event Name Event Status Request Date/Time Start Date/Time Complete Date/Time Arrive Complete 08/07/2024 09:05:40 08/07/2024 09:05:40 08/07/2024 09:05:40 Document Home Meds Request 08/07/2024 09:05:40 Triage Complete 08/07/2024 09:05:40 08/07/2024 09:14:23 08/07/2024 09:14:23 Bed Assign Complete 08/07/2024 09:07:18 08/07/2024 09:07:18 08/07/2024 09:07:18 Dr Exam Complete 08/07/2024 09:07:18 08/07/2024 09:07:59 08/07/2024 09:07:59 RN Exam Complete 08/07/2024 09:07:18 08/07/2024 09:17:37 08/07/2024 09:17:37 Registration Complete 08/07/2024 09:07:59 08/07/2024 09:08:52 08/07/2024 09:08:52 Reg Complete Request 08/07/2024 09:08:52 Reg Bed Request Complete 08/07/2024 09:08:52 08/07/2024 09:08:52 08/07/2024 09:08:52 Pending Labs Complete 08/07/2024 09:09:14 08/07/2024 10:02:56 Lab Complete 08/07/2024 09:09:14 08/07/2024 10:02:56 Meds Admin Complete 08/07/2024 09:09:14 08/07/2024 09:40:48 Isolation Screening Request 08/07/2024 09:14:23 Meds Admin Complete 08/07/2024 09:30:25 08/07/2024 09:40:48 Pending Labs Complete 08/07/2024 09:36:41 08/07/2024 09:36:41 08/07/2024 10:02:56 Lab Complete 08/07/2024 09:36:41 08/07/2024 09:36:41 08/07/2024 10:02:56 Pending Labs Complete 08/07/2024 09:49:27 08/07/2024 09:49:27 08/07/2024 09:49:27 Meds Admin Complete 08/07/2024 10:27:07 08/07/2024 10:36:10 Meds Admin Complete 08/07/2024 11:16:06 08/07/2024 11:33:37 Discharge Complete 08/07/2024 11:52:23 08/07/2024 12:03:12 08/07/2024 12:03:12 Transfer Complete 08/07/2024 12:03:12 08/07/2024 12:03:12 08/07/2024 12:03:12 ADDRESS: [address] [place] [phone] PHYS DOC NOTES: MEDICAL INFORMATION: Prescriptions Given: New Medications [facility] [id number], [address] [place] [phone], [phone] dicyclomine (dicyclomine 20 mg Tab) 1 Tablets By Mouth 3 times a day for 7 Days. Refills: 0. Medications to Continue Taking That Have Changed [facility] [id number], [address] [place] [phone], [phone] START: ondansetron (ondansetron 4 mg Dis Tab) 1 Tablets By Mouth every 6 hours for 3 Days. Refills: 0. START: pantoprazole (Pantoprazole [address] Tab) 1 Tablets By Mouth every day for 30 Days. Refills: 0. Other Medications START: ondansetron (Zofran 4 mg Tab) 1 Tablets By Mouth every 8 hours as needed Nausea/Vomiting. Refills: 6. START: pantoprazole (Pantoprazole [address] Tab) 1 Tablets By Mouth 2 times a day. Refills: 0. Medications to Continue with No Changes Other Medications albuterol (Albuterol (Eqv-ProAir HFA) 90 mcg/inh inhalation aerosol) 2 Puffs Inhalation every 4 hours as needed Wheezing. dulaglutide (Trulicity Pen 1.5 mg/0.5 mL subcutaneous solution) 1.5 Milligram Subcutaneous every week. glipiZIDE (glipiZIDE 10 mg Tab) 1 Tablets By Mouth 2 times a day. hydrOXYzine (hydrOXYzine hydrochloride 25 mg Tab) 1 Tablets By Mouth every 6 hours as needed as needed for anxiety. hyoscyamine (hyoscyamine 0.375 mg ER Tab) 1 Tablets By Mouth at bedtime. ibuprofen insulin glargine (Lantus 100 units/mL Injection-Insulin) 30 Units Subcutaneous once a day (at bedtime). metoclopramide (Reglan 10 mg Tab) 1 Tablets By Mouth every 6 hours. Refills: 0. promethazine (Phenergan 12.5 mg Supp) 1 Suppositories By rectum every 4 hours as needed Nausea/Vomiting. If zofran is ineffective. promethazine (Phenergan 25 mg Supp) 1 Suppositories By rectum every 12 hours as needed Nausea/Vomiting. Refills: 6. promethazine (Phenergan 25 mg Supp) 1 Suppositories By rectum every 6 hours as needed Nausea/Vomiting. Refills: 0. sertraline (sertraline 100 mg Tab) 1 Tablets By Mouth every day. tizanidine (tiZANidine 4 mg Tab) 1 Tablets By Mouth 3 times a day. tizanidine (Zanaflex) By Mouth. PATIENT EDUCATION INFORMATION: Instructions: Follow up: With: Address: When: Aly Beverly [address] [facility], [facility] [address] [phone] Business (1) In 3 days 08/10/2024 With: Address: When: YOSSI GOLDEN [address] [place], [place] [phone] Business (1) In 3 days DIAGNOSIS: Gastroparesis Normal [facility] ED Clinical Summary ED Clinical Summary [address] [address] ED Clinical Summary Person Information Name: GAEL RUBY/[place] Age: 29 Years : 1995 Sex: Female Language: Somali PCP: YOSSI GOLDEN MD Marital Status: Visit Id: Visit Reason: Nausea and vomiting; Abdominal pain; NAUSEA Speciality: Acuity: 3 Enc Type: Emergency Med Service: Emergency Arrival: 08/06/2024 19:01:14 Discharge: 08/07/2024 00:04:31 LOS: 000 05:03 Checkin: 08/06/2024 19:01:14 Checkout: 08/07/2024 00:04:31 Dispo Type: Home (Routine DC) EVENTS: Event Name Event Status Request Date/Time Start Date/Time Complete Date/Time Arrive Complete 08/06/2024 19:01:14 08/06/2024 19:01:14 08/06/2024 19:01:14 Document Home Meds Request 08/06/2024 19:01:14 Triage Complete 08/06/2024 19:01:14 08/06/2024 19:09:56 08/06/2024 19:09:56 Registration Complete 08/06/2024 19:03:10 08/06/2024 19:03:10 08/06/2024 19:03:10 Reg Complete Request 08/06/2024 19:03:10 Reg Bed Request Complete 08/06/2024 19:03:10 08/06/2024 19:03:10 08/06/2024 19:03:10 Isolation Screening Request 08/06/2024 19:09:57 Bed Assign Complete 08/06/2024 19:10:18 08/06/2024 19:10:18 08/06/2024 19:10:18 Dr Exam Complete 08/06/2024 19:10:18 08/06/2024 19:10:59 08/06/2024 19:10:59 RN Exam Complete 08/06/2024 19:10:18 08/06/2024 19:17:54 08/06/2024 19:17:54 Registration Request 08/06/2024 19:10:59 Dr Exam Complete 08/06/2024 19:12:06 08/06/2024 19:12:06 08/06/2024 19:12:06 Pending Labs Complete 08/06/2024 19:18:54 08/06/2024 20:10:56 Lab Complete 08/06/2024 19:18:54 08/06/2024 19:59:18 Pending Labs Complete 08/06/2024 19:19:09 08/06/2024 20:09:36 Lab Complete 08/06/2024 19:19:09 08/06/2024 20:09:36 Urine Collect Complete 08/06/2024 19:19:09 08/06/2024 20:09:36 Pending Labs Complete 08/06/2024 19:35:09 08/06/2024 19:35:09 08/06/2024 19:59:18 Lab Complete 08/06/2024 19:35:09 08/06/2024 19:35:09 08/06/2024 19:59:18 Meds Admin Cancel 08/06/2024 20:19:00 08/06/2024 20:21:05 X-Ray Complete 08/06/2024 20:19:18 08/06/2024 20:24:16 08/06/2024 20:41:45 Meds Admin Complete 08/06/2024 20:21:38 08/06/2024 20:41:23 Wet Read Request 08/06/2024 20:41:45 Pending Labs Complete 08/06/2024 21:06:01 08/06/2024 21:06:01 08/06/2024 21:06:01 Meds Admin Complete 08/06/2024 21:23:36 08/06/2024 21:34:15 Meds Admin Complete 08/06/2024 22:05:01 08/06/2024 22:18:37 Meds Admin Complete 08/06/2024 22:42:45 08/06/2024 22:59:51 Meds Admin Complete 08/06/2024 23:23:50 08/06/2024 23:30:49 Meds Admin Complete 08/06/2024 23:52:42 08/07/2024 00:03:44 Discharge Complete 08/06/2024 23:54:17 08/07/2024 00:04:34 08/07/2024 00:04:34 Transfer Complete 08/07/2024 00:04:34 08/07/2024 00:04:34 08/07/2024 00:04:34 ADDRESS: [address] [place] [phone] PHYS DOC NOTES: MEDICAL INFORMATION: Prescriptions Given: Medications to Continue with No Changes Other Medications albuterol (Albuterol (Eqv-ProAir HFA) 90 mcg/inh inhalation aerosol) 2 Puffs Inhalation every 4 hours as needed Wheezing. hyoscyamine (hyoscyamine 0.375 mg ER Tab) 1 Tablets By Mouth at bedtime. insulin glargine (Lantus 100 units/mL Injection-Insulin) 30 Units Subcutaneous once a day (at bedtime). metoclopramide (Reglan 10 mg Tab) 1 Tablets By Mouth every 6 hours. Refills: 0. pantoprazole (Pantoprazole [address] Tab) 1 Tablets By Mouth 2 times a day. Refills: 0. promethazine (Phenergan 12.5 mg Supp) 1 Suppositories By rectum every 4 hours as needed Nausea/Vomiting. If zofran is ineffective. promethazine (Phenergan 25 mg Supp) 1 Suppositories By rectum every 6 hours as needed Nausea/Vomiting. Refills: 0. sertraline (sertraline 100 mg Tab) 1 Tablets By Mouth every day. PATIENT EDUCATION INFORMATION: Instructions: Abdominal Pain, Adult, [id number] Follow up: With: Address: When: Aly Guardado, [address], [address] [phone] Business (1) In 3 days 08/09/2024 Comments: Call to schedule a follow-up appointment with your city weighmaster in the next 2 to 3 days. Return to ED with any new or worsening symptoms. With: Address: When: YOSSI GOLDEN [address] [place], [place] [phone] Business (1) In 3 days DIAGNOSIS: Chronic abdominal pain; Gastroparesis; Other chronic pain Normal [facility] ED Note-Physicianon 08-07-20 ED Note-Physician ED Note-Physician Basic Information Time Seen: Phan Sandy DO 08/07/2024 09:08 Chief Complaint c/o nausea, abdominal pain that started yesterday morning, states she is in a flare up, last one being in april. was seen here last night, released around 0100, hasnt vomited since. hx of gastroparesis sees beto. History of Present Illness 29 female presents emergency department with abdominal pain nausea vomiting. Patient was just here yesterday with same symptoms she has gastroparesis. She has had multiple prior abdominal surgeries including complete hysterectomy as well as cholecystectomy. She describes a diffuse abdominal discomfort with associated nausea no vomiting. Patient does follow with GI here. She is prescribed Reglan did not take it today she does have Phenergan suppositories at home did not take that either. She woke up feeling nauseous show she was brought to the emergency department by family. No other aggravating or relieving factors no other associated symptoms no other prior treatments or complaints. Family: Reviewed and noncontributory Social: lives at home Review of systems negative unless otherwise specified in the HPI. Physical Exam Vitals & Measurements T: 36.7 ???C(Oral) HR: 92(Peripheral) RR: 18 BP: 125/76 SpO2: 97% HT: 172 cm WT: 111.2 kg BMI: 37.59 General: The patient appears well and in no apparent distress. Patient is resting comfortably on cart. Skin: Warm, dry, no pallor noted. Head: Normocephalic, atraumatic Neck: No JVD Eye: PERRLA, EOMI ENT: Moist mucus membranes Cardiovascular: Regular rate normal peripheral perfusion Respiratory: No respiratory distress no accessory muscle use no obvious audible wheezing Chest Wall: no deformity Musculoskeletal: normal ROM, no deformity, no swelling GI: Soft no obvious distention. No rebound or rigidity. No guarding. No tenderness. Neurological: A&O moves all extremities equal strength and symmetry Psychiatric: Cooperative and appropriate Medical Decision Making Workup in the ER has been reviewed and noted. Patient is treated here with IV Protonix Reglan and Benadryl given subsequent dose of Phenergan for continued nausea and then Bentyl for pain. She is feeling somewhat better. She does have Phenergan suppositories at home we will get her back on her Protonix and refer her to GI. Patient will be given Bentyl as needed for pain. She does have the Phenergan at home as well follow-up in the outpatient setting return to ER symptoms should change or worsen. Assessment/Plan Gastroparesis (K31.84: Gastroparesis) Orders: dicyclomine, 20 mg = 2 mL, Injection, IntraMuscular, Once, Stop date 08/07/24 11:15:00 EST, STAT, Start date 08/07/24 11:15:00 EST, 08/07/24 11:15:00 EST dicyclomine, 20 mg = 1 tab(s), Oral, TID, X 7 day(s), # 21 tab(s), Refills(s) 0, Pharmacy: [facility] [id number], 172, cm, 08/07/24 9:14:00 EST, Height/Length Dosing, 111.2, kg, 08/07/24 9:14:00 EST, Weight Dosing diphenhydrAMINE, 25 mg = 0.5 mL, Injection, IV, Once, Stop date 08/07/24 9:08:00 EST, STAT, Start date 08/07/24 9:08:00 EST, 08/07/24 9:08:00 EST metoclopramide, 10 mg = 2 mL, Injection, IV Push, Once, Stop date 08/07/24 9:08:00 EST, STAT, Start date 08/07/24 9:08:00 EST, 08/07/24 9:08:00 EST ondansetron, 4 mg = 1 tab(s), Oral, q6hr, X 3 day(s), # 10 tab(s), Refills(s) 0, Pharmacy: [facility] [id number], 172, cm, 08/07/24 9:14:00 EST, Height/Length Dosing, 111.2, kg, 08/07/24 9:14:00 EST, Weight Dosing pantoprazole, 40 mg = 10 mL, Injection, IV Push, Once, Stop date 08/07/24 9:30:00 EST, STAT, Start date 08/07/24 9:30:00 EST, 08/07/24 9:30:00 EST pantoprazole, 40 mg = 1 tab(s), Oral, Daily, X 30 day(s), # 30 tab(s), Refills(s) 0, Pharmacy: [facility] [id number], 172, cm, 08/07/24 9:14:00 EST, Height/Length Dosing, 111.2, kg, 08/07/24 9:14:00 EST, Weight Dosing promethazine 25 mg + Sodium Chloride 0.9% intravenous solution 50 mL, Injection, IV Piggyback, Once, Stop date 08/07/24 10:26:00 EST, STAT, Start date 08/07/24 10:26:00 EST, 153 mL/hr, Infuse over 20 minute(s) CBC w/ Auto Diff Comprehensive Metabolic Panel eGFR Extra Blue Tube Extra SST Tube Lipase Level Medications Administered Given Bentyl 10 mg/mL Injection, 20 mg, IntraMuscular diphenhydrAMINE 50 mg/mL Inj, 25 mg, IV metoclopramide 5 mg/mL Inj, 10 mg, IV Push pantoprazole 40 mg IV Inj, 40 mg, IV Push [id number] [F] 25 mg + Sodium Chloride 0.9% IV Deniz 50 mL [F] 50 mL, IV Piggyback Disposition Plan Discharge Prescription List Prescriptions dicyclomine 20 mg Tab, 20 mg= 1 tab(s), Oral, TID ondansetron 4 mg Dis Tab, 4 mg= 1 tab(s), Oral, q6hr Pantoprazole [address] Tab, 40 mg= 1 tab(s), Oral, Daily Follow-up With When Contact Information Aly Beverly In 3 days 08/10/2024 EST [address], [address] [phone] Business (1) Additional Instructions: YOSSI GOLDEN In [address] days [address] [place] [address] Business (more content not included)... Normal [facility] Comment on above: Result Comment: Elec tronically Signed By: Phan Sandy DO\.jarred\Date and Time Signed: 08/07/24 11:53 EST ED Note-Physician ED Note-Physician Basic Information Time Seen: Dwight ESCOBAR, Mouna Gomez 08/06/2024 19:11 Chief Complaint pt arrives for c/o hx of gastroparesis. pt states abd pain n/v started this morning. states she was seen at [place] [facility] History of Present Illness Patient is a 29-year-old female with a history of type 2 diabetes, anxiety, GERD, status post cholecystectomy, and gastroparesis who presents to the ED with gastroparesis symptoms. Patient states she developed abdominal pain and nausea and vomiting this morning around 0600. She states she was seen at the [facility] today as she lives near there. Patient states they did lab work and gave her a GI cocktail and Compazine. She notes no relief in symptoms following this. Patient states she sees a city weighmaster and is on Reglan and MiraLAX. She states she has not been taking MiraLAX recently and feels constipated. Patient states she had a bowel movement last night but it was hard and small in nature. She describes the symptoms she is feeling now to be consistent with gastroparesis. Patient states she sees an wearing apparel assembler who recently changed her medications to Lantus, glipizide, and Trulicity. She states her blood glucose typically runs in the 200s. She denies fevers, changes in urination or any other complaints. Review of Systems A 10 point review of systems is negative except as noted above. Medical and Surgical History: Reviewed and noted Social history: Lives at home Family History: Reviewed. Physical Exam Vitals & Measurements HR: 106(Peripheral) RR: 17 BP: 123/85 SpO2: 98% HT: 172 cm WT: 110 kg BMI: 37.18 General: The patient appears well and in no apparent distress. Patient is resting comfortably on cart. Skin: Warm, dry, no pallor noted. Head: Normocephalic, atraumatic Neck: No JVD Eye: PERRLA, EOMI ENT: Moist mucus membranes Cardiovascular: Regular rate normal peripheral perfusion Respiratory: No respiratory distress no accessory muscle use no obvious audible wheezing Chest Wall: no deformity Musculoskeletal: normal ROM, no deformity, no swelling GI: Soft no obvious distention. No rebound or rigidity. No guarding. No tenderness. Neurological: A&O moves all extremities equal strength and symmetry Psychiatric: Cooperative and appropriate Medical Decision Making Patient is a 29-year-old female with a history of type 2 diabetes, anxiety, GERD, status post cholecystectomy, and gastroparesis who presents to the ED with gastroparesis symptoms. She was seen at [facility] earlier today and was given a GI cocktail with no relief in symptoms. Patient is hemodynamically stable and afebrile. Chart review shows the patient has been seen numerous times in the ED for similar complaints. Patient is given morphine due to an allergy of Toradol along with Zofran. Abdominal exam is unremarkable without tenderness to palpation. Lab work is reviewed. Mild leukocytosis of 12.3, which is improved from prior. Glucose is 287. Lipase is improved with a mild elevation at 74. Urinalysis has 4+ glucose. Negative for ketones. No evidence of DKA. Abdominal x-ray does not show any evidence of a bowel obstruction. She was updated on the results. On reevaluation she noted continued abdominal pain, in which she received Protonix. During a p.o. challenge the patient became nauseous and was therefore given Phenergan, GI cocktail, and Reglan. On reevaluation patient noted improvement in symptoms. She was able to tolerate fluids while in the ED. Patient will follow-up with gastroenterology in the next 2 to 3 days. She is being sent home with suppository Phenergan. She was advised to return to ED with any new or worsening symptoms. Patient is agreeable with the plan and all questions were answered. Assessment/Plan Chronic abdominal pain (R10.9: Unspecified abdominal pain) Gastroparesis (K31.84: Gastroparesis) Other chronic pain (G89.29: Other chronic pain) Orders: Al hydroxide/Mg hydroxide/simethicone, 30 mL, Susp-Oral, Oral, Once, Stop date 08/06/24 22:42:00 EST, STAT, Start date 08/06/24 22:42:00 EST atropine/hyoscyamine/P B/scopolamine, 10 mL, Elixir, Oral, Once, Stop date 08/06/24 22:42:00 EST, STAT, Start date 08/06/24 22:42:00 EST lidocaine topical, 200 mg, 10 mL, Soln-Oral, Oral, Once, Stop date 08/06/24 22:42:00 EST, STAT, Start date 08/06/24 22:42:00 EST metoclopramide, 10 mg = 2 mL, Injection, IV Push, Once, Stop date 08/06/24 23:23:00 EST, STAT, Start date 08/06/24 23:23:00 EST, 08/06/24 23:23:00 EST morphine, 4 mg = 1 mL, Injection, IV Push, Once, Stop date 08/06/24 20:21:00 EST, STAT, Start date 08/06/24 20:21:00 EST, 08/06/24 20:21:00 EST ondansetron, 4 mg = 2 mL, Injection, IV Push, Once, Stop date 08/06/24 20:21:00 EST, STAT, Start date 08/06/24 20:21:00 EST, 08/06/24 20:21:00 EST pantoprazole, 40 mg = 10 mL, Injection, IV Push, Once, Stop date 08/06/24 21:23:00 EST, STAT, Start date 08/06/24 21:23:00 EST, 08/06/24 21:23:00 EST promethazine 25 mg + Sodium Chloride 0.9% intravenous solution 50 (more content not included)... Normal [facility] Comment on above: Result Comment: Elec tronically Signed By: Mouna Quintanilla PA-C\.br\Date and Time Signed: 08/06/24 23:54 EST\.br\Electronically Co-Signed By: Cameron Conklin DO\.br\Date and Time Co-Signed: 08/07/24 00:04 EST ED Patient Education Noteon 08-07-2024 ED Patient Education Note ED Patient Education Note Normal [facility] ED Patient Summaryon 024 ED Patient Summary ED Patient Summary [place] [address] Patient Discharge Instructions Person Information Name: GAEL RUBY Age: 29 Years Arrival Date: 08/07/2024 09:05:40 Discharge Diagnosis: Gastroparesis Primary Care Physician: YOSSI GOLDEN MD Provider Information Primary Provider: Phan Sandy DO [employer] Processor:None The exam and treatment you received in the Emergency Department were for an urgent problem and are not intended as complete care. It is important that you follow up with a doctor, nurse practitioner, or physician???s secretary administrative assistant for ongoing care. If your symptoms become worse or you do not improve as expected and you are unable to reach your usual health care provider, you should return to the Emergency Department. We are available 24 hours a day. GAEL RUBY has been given the following list of patient education materials, prescriptions and follow-up instructions: Follow-up Instructions: With: Address: When: Lu Tirsomonisha Matthias [facility], [address], [address] [phone] Business (1) In 3 days 08/10/2024 With: Address: When: YOSSI GOLDEN [address] [place], [place] [phone] Business (1) In 3 days In the event that this physician does not participate in your insurance network, please consult with your insurance company to find a nearby participating provider. Patient Education Materials: A MESSAGE TO ALL PATIENTS REGARDING OPIOIDS PRESCRIPTION OPIOIDS: WHAT YOU NEED TO KNOW Prescription opioids can be used to help relieve cvpaazhc-kq-xlpjow pain and are often prescribed following a surgery or injury, or for certain health conditions. These medications can be an important part of the treatment but also come with serious risks. It is important to work with your healthcare provider to make sure you are getting the safest, most effective care. WHAT ARE THE RISKS AND SIDE EFFECTS OF OPIOID USE? Prescription opioids carry serious risks of addiction and overdose, especially with prolonged use. An opioid overdose, often marked by slowed breathing, can cause sudden . The use of prescription opioids can have a number of side effects as well, even when taken as directed: ??? Tolerance???meaning you might need to take more of the medication for the same pain relief ??? Physical dependence???meaning you have symptoms of withdrawal when a medication is stopped ??? Increased sensitivity to pain ??? Constipation ??? Nausea, vomiting, and dry mouth ??? Sleepiness and dizziness ??? Confusion ??? Depression ??? Low levels of testosterone that can result in lower sex drive, energy, and strength ??? Itching and sweating RISKS ARE GREATER WITH: ??? History of drug misuse, substance use disorder, or overdose ??? Mental health conditions (such as depression or anxiety) ??? Sleep apnea ??? Older age (65 years and older) ??? Avoid alcohol while taking prescription opioids. Also, unless specifically advised by your health care provider, medications to avoid include: ??? Benzodiazepines (such as Xanax or Valium) ??? Muscle relaxants (such as Soma or Flexeril) ??? Hypnotics (such as Ambien or Lunesta) ??? Other prescription opioids KNOW YOUR OPTIONS Talk to your health care provider about ways to manage your pain that don???t involve prescription opioids. Some of these options may actually work better and have fewer risks and side effects. Options may include: ??? Pain relievers such as acetaminophen, ibuprofen, and naproxen ??? Some medication that are also used for depression or seizures ??? Physical therapy and exercise ??? Cognitive behavioral therapy, a psychological, goal-directed approach, in which patients learn how to modify physical, behavioral, and emotional triggers of pain and stress. IF YOU ARE PRESCRIBED OPIOIDS FOR PAIN: ??? Never take opioids in greater amounts or more often than prescribed. ??? Follow up with your primary health care provider. o Work together to create a plan on how to manage your pain. o Talk about ways to help manage your pain that don???t involve prescription opioids. o Talk about any and all concerns and side effects. ??? Help prevent misuse and abuse o Never sell or share prescription opioids. o Never use another person???s prescription opioids. ??? Store prescription opioids in a secure place and out of reach of others (this may include visitors, children, friends, and family). ??? Safely dispose of unused prescription opioids: Find your community drug take-back program or your pharmacy mail-back program, or flush them down the toilet, following guidance from the Food and Drug Administration (www.fda.gov/Drugs/Res ourcesForYou). ??? Visit www.cdc.gov/drugoverdo se to learn about the risks of opioids abuse and overdose. ??? If (more content not included)... Normal [facility] ED Patient Summary ED Patient Summary [place] [id number] Patient Discharge Instructions Person Information Name: GAEL RUBY Age: 29 Years Arrival Date: 08/06/2024 19:01:14 Discharge Diagnosis: Chronic abdominal pain; Gastroparesis; Other chronic pain Primary Care Physician: YOSSI GOLDEN MD Provider Information Primary Provider: Cameron Conklin DO [employer] Processor:Mouna Quintanilla PA-C The exam and treatment you received in the Emergency Department were for an urgent problem and are not intended as complete care. It is important that you follow up with a doctor, nurse practitioner, or physician???s secretary administrative assistant for ongoing care. If your symptoms become worse or you do not improve as expected and you are unable to reach your usual health care provider, you should return to the Emergency Department. We are available 24 hours a day. GAEL RUBY has been given the following list of patient education materials, prescriptions and follow-up instructions: Follow-up Instructions: With: Address: When: Aly Beverly [address] [place] [address], [address], [address] [phone] Business (1) In 3 days 08/09/2024 Comments: Call to schedule a follow-up appointment with your city weighmaster in the next 2 to 3 days. Return to ED with any new or worsening symptoms. With: Address: When: YOSSI GOLDEN [address], [place] [id number] (1) In 3 days In the event that this physician does not participate in your insurance network, please consult with your insurance company to find a nearby participating provider. Patient Education Materials: Abdominal Pain, Adult, Ylir-iu-Irib A MESSAGE TO ALL PATIENTS REGARDING OPIOIDS PRESCRIPTION OPIOIDS: WHAT YOU NEED TO KNOW Prescription opioids can be used to help relieve faekriel-as-rmjaxz pain and are often prescribed following a surgery or injury, or for certain health conditions. These medications can be an important part of the treatment but also come with serious risks. It is important to work with your healthcare provider to make sure you are getting the safest, most effective care. WHAT ARE THE RISKS AND SIDE EFFECTS OF OPIOID USE? Prescription opioids carry serious risks of addiction and overdose, especially with prolonged use. An opioid overdose, often marked by slowed breathing, can cause sudden . The use of prescription opioids can have a number of side effects as well, even when taken as directed: ??? Tolerance???meaning you might need to take more of the medication for the same pain relief ??? Physical dependence???meaning you have symptoms of withdrawal when a medication is stopped ??? Increased sensitivity to pain ??? Constipation ??? Nausea, vomiting, and dry mouth ??? Sleepiness and dizziness ??? Confusion ??? Depression ??? Low levels of testosterone that can result in lower sex drive, energy, and strength ??? Itching and sweating RISKS ARE GREATER WITH: ??? History of drug misuse, substance use disorder, or overdose ??? Mental health conditions (such as depression or anxiety) ??? Sleep apnea ??? Older age (65 years and older) ??? Avoid alcohol while taking prescription opioids. Also, unless specifically advised by your health care provider, medications to avoid include: ??? Benzodiazepines (such as Xanax or Valium) ??? Muscle relaxants (such as Soma or Flexeril) ??? Hypnotics (such as Ambien or Lunesta) ??? Other prescription opioids KNOW YOUR OPTIONS Talk to your health care provider about ways to manage your pain that don???t involve prescription opioids. Some of these options may actually work better and have fewer risks and side effects. Options may include: ??? Pain relievers such as acetaminophen, ibuprofen, and naproxen ??? Some medication that are also used for depression or seizures ??? Physical therapy and exercise ??? Cognitive behavioral therapy, a psychological, goal-directed approach, in which patients learn how to modify physical, behavioral, and emotional triggers of pain and stress. IF YOU ARE PRESCRIBED OPIOIDS FOR PAIN: ??? Never take opioids in greater amounts or more often than prescribed. ??? Follow up with your primary health care provider. o Work together to create a plan on how to manage your pain. o Talk about ways to help manage your pain that don???t involve prescription opioids. o Talk about any and all concerns and side effects. ??? Help prevent misuse and abuse o Never sell or share prescription opioids. o Never use another person???s prescription opioids. ??? Store prescription opioids in a secure place and out of reach of others (this may include visitors, children, friends, and family). ??? Safely dispose of unused prescription opioids: Find your community drug take-back program or (more content not included)... Normal [facility] Extra Blueon 08-07-2024 Tube Collected Plasma Yes Invalid Interpretation Code [facility] Comment on above: Performed By: #### 1 [id number] #### [facility] [address] [place] [address] HEMATOLOGYOrdered By: SYSTEM SYSTEM on 08-07-2024 Basophils/100 WBC (Bld) 0.8 % Normal 0.0 - 2.0 % Remisol Heme Basophils/Leukocytes Auto (Bld) [Pure # fraction] 0.1 E9/L Normal 0.0 - 0.2 E9/L [facility] Eosinophils (Bld) [#/Vol] 0.1 E9/L Normal 0.0 - 0.5 E9/L [facility] Eosinophils/100 WBC (Bld) 1.1 % Normal 0.0 - 8.0 % [facility]e Erythrocyte distribution width (RBC) [Ratio] 13.6 % Normal 10.9 - 14.2 % [facility]e Hematocrit (Bld) [Volume fraction] 44.6 % Normal 34.0 - 46.0 % [facility]e Hemoglobin (Bld) [Mass/Vol] 15.2 g/dL Normal 12.0 - 16.0 gm/dL [facility] Lymphocytes (Bld) [#/Vol] 2.8 E9/L Normal 1.0 - 4.0 E9/L [facility]e Lymphocytes/100 WBC (Bld) 29.0 % Normal 14.0 - 50.0 % [facility]e MCH (RBC) [Entitic mass] 29.3 pg Normal 27.0 - 34.0 pg Rem[facility] Heme MCHC (RBC) [Mass/Vol] 34.1 g/dL Normal 31.4 - 36.0 gm/dL [facility] MCV (RBC) [Entitic vol] 85.8 fL Normal 80.0 - 100.0 fL [facility]e Monocytes (Bld) [#/Vol] 0.5 E9/L Normal 0.2 - 1.0 E9/L [facility]e Monocytes/100 WBC (Bld) 5.7 % Normal 4.0 - 14.0 % Rem[facility] Heme Neutrophils (Bld) [#/Vol] 6.1 E9/L Normal 2.0 - 7.5 E9/L [facility] Neutrophils/100 WBC (Bld) 63.4 % Normal 36.0 - 75.0 % [facility] Platelet 360.0 E9/L Normal 150.0 - 500.0 E9/L [facility] Platelet mean volume (Bld) [Entitic vol] 8.1 fL Normal 6.4 - 10.8 fL [facility] RBC (Bld) [#/Vol] 5.2 E12/L Normal 4.3 - 5.9 E12/L [facility] WBC corrected for nucl RBC Auto (Bld) [#/Vol] 9.5 E9/L Normal 4.0 - 11.0 E9/L [facility] Lipase Levelon 08-07-2024 Lipase [Catalytic activity/Vol] 78 U/L High 13-58 [facility] Comment on above: Performed By: #### 2 [id number] #### [facility] [address] [place] [address] XR Abdomen Series w/ Chest 1 Viewon 08-07-2024 XR Abdomen Series w/ Chest 1 View Exam Date/Time: 08/06/2024 20:41 EST Reason for Exam: Abdominal pain Report IMPRESSION: 1. NO EVIDENCE OF ACTIVE DISEASE IN THE CHEST. 2. NONOBSTRUCTIVE ABDOMINAL BOWEL GAS PATTERN AND NO PNEUMOPERITONEUM. CLINICAL HISTORY: Abdominal pain COMPARISONS: None available.. FINDINGS: The erect PA film of the chest appears normal. Supine and upright views of the abdomen demonstrate a nonobstructive abdominal bowel gas pattern. On the upright film, there is no pneumoperitoneum and there are no intestinal air/fluid levels. There are no radiopaque stones or calculus in the abdomen. There are phleboliths in the pelvis. Remainder of the abdomen appears unremarkable. Ordering Provider: Mouna Quintanilla FINAL REPORT Dictated: 08/07/2024 9:22 am Best Chirinos MD Signed (Electronic Signature): 08/07/2024 9:22 am Signed by: Best Chirinos MD Transcribed by: VENKAT Technologist: LORELEI Technical Comments Radiation Dose: Ka,r in mGy = na DAP = na Normal [facility] eGFRon 08-07-2024 eGFR 102 mL/min/1.73 m2 Normal >=59 [facility] Comment on above: Performed By: #### 1 [id number] #### [facility] [address] [place] [address] BMPon 08-06-2024 Anion gap [Moles/Vol] 15 mmol/L Normal 6-16 [facility] Comment on above: Performed By: #### 2 [id number] #### [facility] [address] [place] [address] Calcium [Mass/Vol] 9.4 mg/dL Normal 8.9-11.1 [facility] Comment on above: Performed By: #### 2 [id number] #### [facility] [address] [place] [address] Chloride [Moles/Vol] 102 mmol/L Normal 101-111 [facility] Comment on above: Performed By: #### 2 [id number] #### [facility] [address] [place] [address] CO2 [Moles/Vol] 23 mmol/L Normal 21-31 [facility] Comment on above: Performed By: #### 2 [id number] #### [facility] [address] [place] [address] Creatinine [Mass/Vol] 0.9 mg/dL Normal 0.5-1.3 [facility] Comment on above: Performed By: #### 2 [id number] #### [facility] [address] [place] [address] Glucose [Mass/Vol] 287 mg/dL High 55-199 [facility] Comment on above: Performed By: #### 2 [id number] #### [facility] [address] [place] [address] Potassium [Moles/Vol] 4.1 mmol/L Normal 3.5-5.3 [facility] Comment on above: Performed By: #### 2 [id number] #### [facility] [address] [place] [address] Sodium [Moles/Vol] 136 mmol/L Normal 135-145 [facility] Comment on above: Performed By: #### 2 [id number] #### [facility] [address] [place] [address] Urea nitrogen [Mass/Vol] 15 mg/dL Normal 5-21 [facility] Comment on above: Performed By: #### 2 [id number] #### [facility] [address] [place] [address] Urea nitrogen/Creatinine [Mass ratio] 17 No Units Normal 10-20 [facility] Comment on above: Performed By: #### 2 [id number] #### [facility] [address] [place] [address] CBC w/ Auto Diffon 4 Basophils/100 WBC (Bld) 1.6 % Normal 0.0-2.0 [facility] Comment on above: Performed By: #### 2 [id number] #### [facility] [address] [place] [address] Basophils/Leukocytes Auto (Bld) [Pure # fraction] 0.2 E9/L Normal 0.0-0.2 [facility] Comment on above: Performed By: #### 2 [id number] #### [facility] [address] [place] [address] Eosinophils (Bld) [#/Vol] 0.1 E9/L Normal 0.0-0.5 [facility] Comment on above: Performed By: #### 2 [id number] #### [facility] [address] [place] [address] Eosinophils/100 WBC (Bld) 1.0 % Normal 0.0-8.0 [facility] Comment on above: Performed By: #### 2 [id number] #### [facility] [address] [place] [address] Erythrocyte distribution width (RBC) [Ratio] 13.9 % Normal 10.9-14.2 [facility] Comment on above: Performed By: #### 2 [id number] #### [facility] [address] [place] [address] Hematocrit (Bld) [Volume fraction] 43.6 % Normal 34.0-46.0 [facility] Comment on above: Performed By: #### 2 [id number] #### [facility] [address] [place] [address] Hemoglobin (Bld) [Mass/Vol] 15.1 g/dL Normal 12.0-16.0 [facility] Comment on above: Performed By: #### 2 [id number] #### [facility] [address] [place] [address] Lymphocytes (Bld) [#/Vol] 4.0 E9/L Normal 1.0-4.0 [facility] Comment on above: Performed By: #### 2 [id number] #### [facility] [address] [place] [address] Lymphocytes/100 WBC (Bld) 32.6 % Normal 14.0-50.0 [facility] Comment on above: Performed By: #### 2 [id number] #### [facility] [address] [place] [address] MCH (RBC) [Entitic mass] 29.9 pg Normal 27.0-34.0 [facility] Comment on above: Performed By: #### 2 [id number] #### [facility] [address] [place] [address] MCHC (RBC) [Mass/Vol] 34.6 g/dL Normal 31.4-36.0 [facility] Comment on above: Performed By: #### 2 600144 #### [facility] [address] [place] [address] MCV (RBC) [Entitic vol] 86.4 fL Normal 80.0-100.0 [facility] Comment on above: Performed By: #### 2 [id number] #### [facility] [address] [place] [address] Monocytes (Bld) [#/Vol] 0.6 E9/L Normal 0.2-1.0 [facility] Comment on above: Performed By: #### 2 [id number] #### [facility] [address] [place] [address] Neutrophils (Bld) [#/Vol] 7.4 E9/L Normal 2.0-7.5 [facility] Comment on above: Performed By: #### 2 [id number] #### [facility] [address] [place] [address] Neutrophils/100 WBC (Bld) 59.9 % Normal 36.0-75.0 [facility] Comment on above: Performed By: #### 2 [id number] #### [facility] [address] [place] [address] Platelet 366.0 E9/L Normal 150.0-500.0 [facility] Comment on above: Performed By: #### 2 [id number] #### [facility] [address] [place] [address] Platelet mean volume (Bld) [Entitic vol] 8.4 fL Normal 6.4-10.8 [facility] Comment on above: Performed By: #### 2 [id number] #### [facility] [address] [place] [address] RBC (Bld) [#/Vol] 5.1 E12/L Normal 4.3-5.9 [facility] Comment on above: Performed By: #### 2 [id number] #### [facility] [address] [place] [address] WBC corrected for nucl RBC Auto (Bld) [#/Vol] 12.3 E9/L High 4.0-11.0 [facility] Comment on above: Performed By: #### 2 [id number] #### [facility] [address] [place] [address] CBC with Auto Differentialon 08-06-2024 Basophils (Bld) [#/Vol] 0.05 10*3/uL [facility] Basophils/100 WBC (Bld) 1 % 0 - 2 % [facility] Eosinophils (Bld) [#/Vol] 0.08 10*3/uL [facility] Eosinophils/100 WBC (Bld) 1 % 1 - 4 % [facility] Erythrocyte distribution width (RBC) [Ratio] 12.9 % 11.8 - 14.4 % [facility] Hematocrit (Bld) [Volume fraction] 46.0 % 36.3 - 47.1 % [facility] Hemoglobin (Bld) [Mass/Vol] 15.4 g/dL High 11.9 - 15.1 g/dL [facility] Immature granulocytes (Bld) [#/Vol] 0.05 10*3/uL [facility] Immature granulocytes/100 WBC (Bld) 1 % High 0 [facility] Interpretation and review of laboratory results Abnormal [facility] Lymphocytes/100 WBC (Bld) 29 % 24 - 43 % [facility] Lymphocytes/100 WBC (Bld) 3.01 % [facility] MCH (RBC) [Entitic mass] 29.2 pg 25.2 - 33.5 pg [facility] MCHC (RBC) [Mass/Vol] 33.5 g/dL 28.4 - 34.8 g/dL [facility] MCV (RBC) [Entitic vol] 87.1 fL 82.6 - 102.9 fL [facility] Monocytes/100 WBC (Bld) 4 % 3 - 12 % [facility] Monocytes/100 WBC (Bld) 0.43 % [facility] Neutrophils/100 WBC (Bld) 64 % 36 - 65 % [facility] Nucleated RBC/100 WBC (Bld) [Ratio] 0.0 % 0.0 per 100 WBC [facility] Platelet mean volume (Bld) [Entitic vol] 10.2 fL 8.1 - 13.5 fL [facility] Platelets (Bld) [#/Vol] 338 10*3/uL [facility] RBC (Bld) [#/Vol] 5.28 10*6/uL High 3.95 - 5.1 1 m/uL [facility] Segmented neutrophils/100 WBC (Bld) 6.66 % [facility] WBC other (Bld) [#/Vol] 10.3 [facility] CBC with Diffon 08-06-2024 Abs. Basophil 0.05 k/uL Normal 0.00-0.20 [facility] Comment on above: Performed By: #### C DP, CP, LIP ####[address] [place] [address] Lab Director: Murtaza Arceo MD Abs.Imm.Granulocyte 0.05 k/uL Normal 0.00-0.30 [facility] Comment on above: Performed By: #### C DP, CP, LIP ####[address] , [place] [id number])[phone] Director: Murtaza Arceo MD Abs.Neutrophil (Seg) 6.66 k/uL Normal 1.50-8.10 [facility] Comment on above: Performed By: #### C DP CP, LIP ####[address] , [place] [address])[phone] Director: Murtaza Arceo MD Basophils/100 WBC (Bld) 1 % Normal 0-2 [facility] Comment on above: Performed By: #### C DP CP, LIP ####[address] , [place] [address])[phone] Director: Murtaza Arceo MD Eosinophils (Bld) [#/Vol] 0.08 10*3/uL Normal 0.00-0.44 [facility] Comment on above: Performed By: #### C DP, CP, LIP ####[address] , [place] [address])[phone] Director: Murtaza Arceo MD Eosinophils/100 WBC (Bld) 1 % Normal 1-4 [facility] Comment on above: Performed By: #### C DP, CP, LIP ####[address] , [place] [address])[phone] Director: Murtaza Arceo MD Erythrocyte distribution width (RBC) [Ratio] 12.9 % Normal 11.8-14.4 [facility] Comment on above: Performed By: #### C DP, CP, LIP ####[address] , [place] [address] Lab Director: Murtaza Arceo MD Hematocrit (Bld) [Volume fraction] 46.0 % Normal 36.3-47.1 [facility] Comment on above: Performed By: #### C DP, CP, LIP ####[address] [place] [address] Lab Director: Murtaza Arceo MD Hemoglobin (Bld) [Mass/Vol] 15.4 g/dL High 11.9-15.1 [facility] Comment on above: Performed By: #### C DP, CP, LIP ####[address] [place] [address] Lab Director: Murtaza Arceo MD Immature granulocytes/100 WBC (Bld) 1 % High 0 [facility] Comment on above: Performed By: #### C DP, CP, LIP ####[address] [place] [address] Lab Director: Murtaza Arceo MD Lymphocytes (Bld) [#/Vol] 3.01 10*3/uL Normal 1.10-3.70 [facility] Comment on above: Performed By: #### C DP, CP, LIP ####[address] [place] [address] Lab Director: Murtaza Arceo MD Lymphocytes/100 WBC (Bld) 29 % Normal 24-43 [facility] Comment on above: Performed By: #### C DP, CP, LIP ####[address] , [place] [address] Lab Director: Murtaza Arceo MD MCH (RBC) [Entitic mass] 29.2 pg Normal 25.2-33.5 [facility] Comment on above: Performed By: #### C DP, CP, LIP ####[address] , [place] [address])[phone] Director: Murtaza Arceo MD MCHC (RBC) [Mass/Vol] 33.5 g/dL Normal 28.4-34.8 [facility] Comment on above: Performed By: #### C DP, CP, LIP ####[address] , [place] [address])[phone] Director: Murtaza Arceo MD MCV (RBC) [Entitic vol] 87.1 fL Normal 82.6-102.9 [facility] Comment on above: Performed By: #### C DP, CP, LIP ####[address] , [place] [address])[phone] Director: Murtaza Arceo MD Monocytes (Bld) [#/Vol] 0.43 10*3/uL Normal 0.10-1.20 [facility] Comment on above: Performed By: #### C DP, CP, LIP ####[address] , [place] [address])[phone] Director: Murtaza Arceo MD Monocytes/100 WBC (Bld) 4 % Normal 3-12 [facility] Comment on above: Performed By: #### C DP, CP, LIP ####[address] , [facility]83[facility])[phone] Director: Murtaza Arceo MD Neutrophil (Seg) 64 % Normal 36-65 [facility] Comment on above: Performed By: #### C DP, CP, LIP ####[address] , [id number] Lab Director: Murtaza Arceo MD NRBC Automated 0.0 per 100 WBC Normal 0.0 [facility] Comment on above: Performed By: #### C DP, CP, LIP ####[place] [address] [address] , [place] [address] Lab Director: Murtaza Arceo MD Platelet mean volume (Bld) [Entitic vol] 10.2 fL Normal 8.1-13.5 [facility] Comment on above: Performed By: #### C DP, CP, LIP ####[address] , [place] [address] Lab Director: Murtaza Arceo MD Platelets (Bld) [#/Vol] 338 10*3/uL Normal 138-453 [facility] Comment on above: Performed By: #### C DP, CP, LIP ####[address] , [place] [id number] Lab Director: Murtaza Arceo MD RBC (Bld) [#/Vol] 5.28 10*6/uL High 3.95-5.11 [facility] Comment on above: Performed By: #### C DP, CP, LIP ####[address] , [place] [id number] Lab Director: Murtaza Arceo MD WBC (Bld) [#/Vol] 10.3 10*3/uL Normal 3.5-11.3 [facility] Comment on above: Performed By: #### C DP, CP, LIP ####[address] , [facility])[phone] Director: Murtaza Arceo MD CHEMISTRYOrdered By: SYSTEM SYSTEM on 08-06-2024 Albumin [Mass/Vol] 4.4 g/dL Normal 3.3 - 5.0 gm/dL [facility] Albumin/Globulin [Mass ratio] 1.5 {ratio} Normal 1.1 - 2.2 [facility] ALP [Catalytic activity/Vol] 78 [iU]/d Normal 21 - 98 Int._Unit/L [facility] ALT No additional P-5'-P [Catalytic activity/Vol] 34 [iU]/d Normal 6 - 46 Int._Unit/L [facility] Anion gap [Moles/Vol] 15 mmol/L Normal 6 - 16 mEq/L [facility] AST [Catalytic activity/Vol] 30 [iU]/d Normal 5 - 43 Int._Unit/L [facility] Bilirubin [Mass/Vol] 0.4 mg/dL Normal 0.0 - 1 .1 mg/dL [facility] Bilirubin.direct [Mass/Vol] 0.1 mg/dL Normal 0.0 - 0.4 mg/dL [facility] Bilirubin.indirect [Mass or moles/Vol] 0.3 mg/dL Normal 0.1 - 0.9 mg/dL [facility] Calcium [Mass/Vol] 9.4 mg/dL Normal 8.9 - 11. 1 mg/dL [facility] Chloride [Moles/Vol] 102 mmol/L Normal 101 - 1 11 mmol/L [facility] CO2 [Moles/Vol] 23 mmol/L Normal 21 - 31 mmol/L [facility] Creatinine [Mass/Vol] 0.9 mg/dL Normal 0.5 - 1.3 mg/dL [facility] eGFR 88 mL/min/1.73 m2 Normal >=59mL/min / 1.73 m2 [facility] Globulin (S) [Mass/Vol] 2.9 g/dL Normal 1.4 - 4.0 gm/dL [facility] Glucose [Mass/Vol] 287 mg/dL High 55 - 199 mg/dL [facility] Lipase [Catalytic activity/Vol] 74 U/L High 13 - 58 unit/L [facility] Potassium [Moles/Vol] 4.1 mmol/L Normal 3.5 - 5.3 mmol/L [facility] Protein [Mass/Vol] 7.3 g/dL Normal 6.0 - 7.8 gm/dL [facility] Sodium [Moles/Vol] 136 mmol/L Normal 135 - 145 mmol/L [facility] Urea nitrogen [Mass/Vol] 15 mg/dL Normal 5 - 21 mg/dL [facility] Urea nitrogen/Creatinine [Mass ratio] 17 mg/mg Normal 10 - 20 [facility] Comp Metabolic Profon 2023 Albumin [Mass/Vol] 4.5 g/dL Normal 3.5-5.2 [facility] Comment on above: Performed By: #### C DP, CP, LIP ####[address] [place] [address] Lab Director: Murtaza Arceo MD Albumin/Glob Ratio 1.4 Normal 1.0-2.5 [facility] Comment on above: Performed By: #### C DP, CP, LIP ####[address] [place] [address] Lab Director: Murtaza Arceo MD Alkaline Phos 97 U/L Normal 35-104 [facility] Comment on above: Performed By: #### C DP, CP, LIP ####[address] [place] [address] Lab Director: Murtaza Arceo MD ALT [Catalytic activity/Vol] 38 U/L High 10-35 [facility] Comment on above: Performed By: #### C DP, CP, LIP ####[address] [place] [address] Lab Director: Murtaza Arceo MD Anion gap [Moles/Vol] 14 mmol/L Normal 9-16 [facility] Comment on above: Performed By: #### C DP, CP, LIP ####[address] [place] [address] Lab Director: Murtaza Arceo MD AST [Catalytic activity/Vol] 40 U/L High 10-35 [facility] Comment on above: Performed By: #### C DP, CP, LIP ####[address] [place] [address] Lab Director: Murtaza Arceo MD Bilirubin [Mass/Vol] 0.4 mg/dL Normal 0.00-1.20 [facility] Comment on above: Performed By: #### C DP, CP, LIP ####[address] [place] [address] Lab Director: Murtaza Arceo MD BUN/CRE Ratio 21 High 9-20 [facility] Comment on above: Performed By: #### C VENKAT CP, LIP ####[address] , [place] [id number] Lab Director: Murtaza Arceo MD Calcium [Mass/Vol] 9.9 mg/dL Normal 8.6-10.4 [facility] Comment on above: Performed By: #### C DP CP, LIP ####[address] , [place] [address] Lab Director: Murtaza Arceo MD Chloride [Moles/Vol] 104 mmol/L Normal 98-107 [facility] Comment on above: Performed By: #### C DP CP, LIP ####[address] , [place] [address]83 Lab Director: Murtaza Arceo MD CO2 [Moles/Vol] 22 mmol/L Normal 20-31 [facility] Comment on above: Performed By: #### C VENKAT CP, LIP ####[address] , [place] [address]83 Lab Director: Murtaza Arceo MD Creatinine [Mass/Vol] 0.7 mg/dL Normal 0.50-0.90 [facility] Comment on above: Performed By: #### C VENKAT CP, LIP ####[address] , [place] 8[address] Lab Director: Murtaza Arceo MD GFR/1.73 sq M.predicted among non-blacks MDRD (S/P/Bld) [Vol rate/Area] mL/min/{1.73_m2} Normal >60 [facility] Comment on above: Result Comment: Thes [...] Performed By: #### C ANA ROBLEDO, LIP ####[address] [place] [address] Lab Director: Murtaza Arceo MD Glucose [Mass/Vol] 193 mg/dL High 74-99 [facility] Comment on above: Performed By: #### C VENKAT CP, LIP ####[address] [place] [address] Lab Director: Murtaza Arceo MD Potassium [Moles/Vol] 4.5 mmol/L Normal 3.7-5.3 [facility] Comment on above: Performed By: #### C VENKAT CP, LIP ####[address] [place] [address] Lab Director: Murtaza Arceo MD Protein [Mass/Vol] 7.7 g/dL Normal 6.6-8.7 [facility] Comment on above: Performed By: #### C ANA ROBLEDO, LIP ####[address] [place] [address] Lab Director: Murtaza Arceo MD Sodium [Moles/Vol] 140 mmol/L Normal 136-145 [facility] Comment on above: Performed By: #### C VENKAT CP, LIP ####[address] [place] [address] Lab Director: Murtaza Arceo MD Urea nitrogen [Mass/Vol] 15 mg/dL Normal 6-20 [facility] Comment on above: Performed By: #### C VENKAT CP, LIP ####[address] [place] [address] Lab Director: Murtaza Arceo MD [facility] Metabolic Pane [facility] 08-06-2024 Albumin [Mass/Vol] 4.5 g/dL 3.5 - 5.2 g/dL [facility] Albumin/Globulin [Mass ratio] 1.4 {ratio} 1.0 - 2.5 [facility] ALP [Catalytic activity/Vol] 97 U/L 35 - 104 U/L [facility] ALT [Catalytic activity/Vol] 38 U/L High 10 - 35 U/L [facility] Anion gap [Moles/Vol] 14 mmol/L 9 - 16 mmol/L [facility] AST [Catalytic activity/Vol] 40 U/L High 10 - 35 U/L [facility] Bilirubin [Mass/Vol] 0.4 mg/dL 0.00 - 1.20 mg/dL [facility] Calcium [Mass/Vol] 9.9 mg/dL 8.6 - 10. 4 mg/dL [facility] Chloride [Moles/Vol] 104 mmol/L 98 - 10 7 mmol/L [facility] CO2 [Moles/Vol] 22 mmol/L 20 - 31 mmol/L [facility] Creatinine [Mass/Vol] 0.7 mg/dL 0.50 - 0.90 mg/dL [facility] Est, Glom Filt Rate - PINF [facility] Comment on above: These results are not [...] that affects renal tubular secretion. Glucose [Mass/Vol] 193 mg/dL High 74 - 99 mg/dL [facility] Potassium [Moles/Vol] 4.5 mmol/L 3.7 - 5.3 mmol/L [facility] Protein [Mass/Vol] 7.7 g/dL 6.6 - 8.7 g/dL [facility] Sodium [Moles/Vol] 140 mmol/L 136 - 145 mmol/L [facility] Urea nitrogen [Mass/Vol] 15 mg/dL 6 - 20 mg/dL [facility] Urea nitrogen/Creatinine [Mass ratio] 21 mg/mg High 9 - 20 [facility] ED Note-Nursingon 08-06-2024 ED Note-Nursing ED Note-Nursing at this time pt states she feels well enough to go home with spouse Normal [facility] Extra Blueon 08-06-2024 Tube Collected Plasma Yes Invalid Interpretation Code [facility] Comment on above: Performed By: #### 1 [id number] #### [facility] [address] [place] [address] HEMATOLOGYOrdered By: SYSTEM SYSTEM on 08-06-2024 Basophils/100 WBC (Bld) 1.6 % Normal 0.0 - 2.0 % [facility] Basophils/Leukocytes Auto (Bld) [Pure # fraction] 0.2 E9/L Normal 0.0 - 0.2 E9/L [facility] Eosinophils (Bld) [#/Vol] 0.1 E9/L Normal 0.0 - 0.5 E9/L [facility] Eosinophils/100 WBC (Bld) 1.0 % Normal 0.0 - 8.0 % [facility] Erythrocyte distribution width (RBC) [Ratio] 13.9 % Normal 10.9 - 14.2 % [facility] Hematocrit (Bld) [Volume fraction] 43.6 % Normal 34.0 - 46.0 % [facility] Hemoglobin (Bld) [Mass/Vol] 15.1 g/dL Normal 12.0 - 16.0 gm/dL [facility] Lymphocytes (Bld) [#/Vol] 4.0 E9/L Normal 1.0 - 4.0 E9/L [facility] Lymphocytes/100 WBC (Bld) 32.6 % Normal 14.0 - 50.0 % [facility] MCH (RBC) [Entitic mass] 29.9 pg Normal 27.0 - 34.0 pg [facility] MCHC (RBC) [Mass/Vol] 34.6 g/dL Normal 31.4 - 36.0 gm/dL [facility] MCV (RBC) [Entitic vol] 86.4 fL Normal 80.0 - 100.0 fL [facility] Monocytes (Bld) [#/Vol] 0.6 E9/L Normal 0.2 - 1.0 E9/L [facility] Monocytes/100 WBC (Bld) 4.9 % Normal 4.0 - 14.0 % [facility] Neutrophils (Bld) [#/Vol] 7.4 E9/L Normal 2.0 - 7.5 E9/L [facility] Neutrophils/100 WBC (Bld) 59.9 % Normal 36.0 - 75.0 % [facility] Platelet 366.0 E9/L Normal 150.0 - 500.0 E9/L [facility] Platelet mean volume (Bld) [Entitic vol] 8.4 fL Normal 6.4 - 10.8 fL [facility] RBC (Bld) [#/Vol] 5.1 E12/L Normal 4.3 - 5.9 E12/L [facility] WBC corrected for nucl RBC Auto (Bld) [#/Vol] 12.3 E9/L High 4.0 - 11.0 E9/L [facility] Hep Func Panelon 08-06-2024 Albumin [Mass/Vol] 4.4 g/dL Normal 3.3-5.0 [facility] Comment on above: Performed By: #### 2 [id number] #### [facility] [address] [place] [address] Albumin/Globulin (S) [Mass conc ratio] 1.5 Normal 1.1-2.2 [facility] Comment on above: Performed By: #### 2 [id number] #### [facility] [address] [place] [address] ALP [Catalytic activity/Vol] 78 Int._Unit/L Normal 21-98 [facility] Comment on above: Performed By: #### 2 [id number] #### [facility] [address] [place] [address] ALT No additional P-5'-P [Catalytic activity/Vol] 34 Int._Unit/L Normal 6-46 [facility] Comment on above: Performed By: #### 2 [id number] #### [facility] [address] [place] [address] AST [Catalytic activity/Vol] 30 Int._Unit/L Normal 5-43 [facility] Comment on above: Performed By: #### 2 [id number] #### [facility] [address] [place] [address] Bilirubin [Mass/Vol] 0.4 mg/dL Normal 0.0-1.1 [facility] Comment on above: Performed By: #### 2 [id number] #### [facility] [address] [place] [address] Bilirubin.direct [Mass/Vol] 0.1 mg/dL Normal 0.0-0.4 [facility] Comment on above: Performed By: #### 2 [id number] #### [facility] [address] [place] [address] Bilirubin.indirect [Mass or moles/Vol] 0.3 mg/dL Normal 0.1-0.9 [facility] Comment on above: Performed By: #### 2 [id number] #### [facility] [address] [place] [address] Globulin (S) [Mass/Vol] 2.9 g/dL Normal 1.4-4.0 [facility] Comment on above: Performed By: #### 2 [id number] #### [facility] [address] [place] [address] Protein [Mass/Vol] 7.3 g/dL Normal 6.0-7.8 [facility] Comment on above: Performed By: #### 2 [id number] #### [facility] [address] [place] [address] Lactic Acidon 08-06-2024 Lactate (BldV) [Moles/Vol] 1.8 mmol/L 0.5 - 2.2 mmol/L [facility] Lactate [Moles/Vol] 1.8 mmol/L Normal 0.5-2.2 [facility] Comment on above: Performed By: #### L ACTIC ####[facility] [place], [place] [id number] lab Director: Murtaza Arceo MD Lipaseon 08-06-2024 Lipase [Catalytic activity/Vol] 61 U/L High 13 - 60 U/L [facility] Lipase [Catalytic activity/Vol] 61 U/L High 13-60 [facility] Comment on above: Performed By: #### C DP, CP, LIP ####[facility] [place] [address] lab Director: Murtaza Arceo MD Lipase Levelon 08-06-2024 Lipase [Catalytic activity/Vol] 74 U/L High 13-58 [facility] Comment on above: Performed By: #### 2 [id number] #### [facility] [address] [place] [address] No Panel Informationon 08-06 Interpretation and review of laboratory results Abnormal [facility] SEROLOGYOrdered By: Nehal Toscano on 08-06-2024 HCG.beta subunit (U) [Moles/Vol] Negative Normal [facility] Man Sero U BetaHcg Qualon 08-06-2024 HCG.beta subunit (U) [Moles/Vol] Negative Normal [facility] Comment on above: Performed By: #### 2 [id number] #### [facility] [address] [place] [address] UA with Cult Rflxon 08-06-20 24 Bilirubin Ql (U) Negative Normal Negative [facility] Comment on above: Performed By: #### 4 [id number] #### [facility] [address] [place] [address] Clarity (U) Clear Normal Clear [facility] Comment on above: Performed By: #### 4 [id number] #### [facility] [address] [place] [address] Color (U) Light-Yellow Normal Yellow [facility] Comment on above: Result Comment: Micr oscopic readings are only performed on those samples that meet specific criteria set forth by [facility]. Performed By: #### 4 [id number] #### [facility] [address] [place] [address] Glucose Ql (U) 4+ mg/dL Abnormal Negative [facility] Comment on above: Performed By: #### 4 [id number] #### [facility] [address] [place] [address] Hemoglobin Auto test strip (U) [Mass/Vol] Negative Normal Negative [facility] Comment on above: Performed By: #### 4 [id number] #### [facility] [address] [place] [address] Ketones Auto test strip Ql (U) Negative Normal Negative [facility] Comment on above: Performed By: #### 4 [id number] #### [facility] [address] [place] [address] Leukocyte esterase Auto test strip Ql (U) Negative Normal Negative [facility] Comment on above: Performed By: #### 4 [id number] #### [facility] [address] [place] [address] Nitrite Auto test strip Ql (U) Negative Normal Negative [facility] Comment on above: Performed By: #### 4 [id number] #### [facility] [address] [place] [address] pH (U) 5.5 [pH] Invalid Interpretation Code 5.0-9.0 [facility] Comment on above: Performed By: #### 4 [id number] #### [facility] [address] [place] [address] Protein Ql (U) Negative Normal Negative [facility] Comment on above: Performed By: #### 4 [id number] #### [facility] [address] [place] [address] Specific gravity (U) [Rel density] 1.035 Invalid Interpretation Code 1.005-1.030 [facility] Comment on above: Performed By: #### 4 [id number] #### [facility] [address] [place] [address] Urobilinogen (U) [Mass/Vol] Negative Normal Negative [facility] Comment on above: Performed By: #### 4 [id number] #### [facility] [address] [place] [address] Type of Urine collection method Clean Catch Normal [facility] Comment on above: Performed By: #### 4 [id number] #### [facility] [address] [place] [address] URINALYSISOrdered By: SYSTEM SYSTEM on 08-06-2024 Bilirubin Ql (U) Negative Normal Negativemg/ dL [facility] UA Auto SS Clarity (U) Clear (08/06/24 7:56 PM) Normal Clear [facility] UA Auto SS Color (U) Light-Yellow 1 (08/06/24 7:56 PM) Normal Yellow [facility] UA Auto SS Comment on above: Interpretive Data: M icroscopic readings are only performed on those samples that meet specific criteria set forth by [facility]. Glucose Ql (U) 4+ mg/dL Invalid Interpretation Code Negativemg/ dL [facility] UA Auto SS Hemoglobin Auto test strip (U) [Mass/Vol] Negative Normal Negativemg/ dL [facility] UA Auto SS Ketones Auto test strip Ql (U) Negative Normal Negativemg/ dL FT UA Auto SS Leukocyte esterase Auto test strip Ql (U) Negative Normal NegativeLeu /uL [facility] UA Auto SS Nitrite Auto test strip Ql (U) Negative Normal Negativemg/ dL [facility] UA Auto SS pH (U) 5.5 *NA* (08/06/24 7:56 PM) Invalid Interpretation Code 5.0 - 9.0 [facility] UA Auto SS Protein Ql (U) Negative Normal Negativemg/ dL [facility] UA Auto SS Specific gravity (U) [Rel density] 1.035 *NA* (08/06/24 7:56 PM) Invalid Interpretation Code 1.005 - 1.030 [facility] UA Auto SS Urobilinogen (U) [Mass/Vol] Negative Normal Negativemg/ dL [facility] UA Auto SS URINALYSISOrdered By: Mouna Quintanilla on 08-06-2024 UA Spec Desc Clean Catch (08/06/24 7:56 PM) Normal [facility] UA Auto SS Urinalysis w/ Microon 2023 Bilirubin, SemiQt,Ur Negative Normal NEG [facility] Comment on above: Performed By: #### U AMI ####[address] , [place] [address] Lab Director: Murtaza Arceo MD Blood, Urine Negative Normal NEG [facility] Comment on above: Performed By: #### U AMIC ####[address] , [place] [address] Lab Director: Murtaza Arceo MD Clarity (U) Clear Normal CLEAR [facility] Comment on above: Performed By: #### U AMIC ####[address] [place] [address] Lab Director: Murtaza Arceo MD Color (U) Yellow Normal YEL [facility] Comment on above: Performed By: #### U AMIC ####[address] [place] [address] Lab Director: Murtaza Arceo MD Epithelial cells LM Ql (Urine sed) 0 TO 2 Normal 0-25 [facility] Comment on above: Performed By: #### U AMIC ####[address] [place] [address] Lab Director: Murtaza Arceo MD Glucose Ql (U) 3+ mg/dL Abnormal NEG [facility] Comment on above: Performed By: #### U AMIC ####[address] [place] [address] Lab Director: Murtaza Arceo MD Ketones Ql (U) Negative Normal NEG [facility] Comment on above: Performed By: #### U AMIC ####[address] [place] [address] Lab Director: Murtaza Arceo MD Leukocyte esterase Test strip Ql (U) Negative Normal NEG [facility] Comment on above: Performed By: #### U AMIC ####[address] , [place] [address] Lab Director: Murtaza Arceo MD Nitrite,Ur Negative Normal NEG [facility] Comment on above: Performed By: #### U AMIC ####[address] , [place] [address] Lab Director: Murtaza Arceo MD PH,Ur 6.0 Normal 5.0-9.0 [facility] Comment on above: Performed By: #### U AMIC ####[address] [place] [address] Lab Director: Murtaza Arceo MD Protein Ql (U) Negative Normal NEG [facility] Comment on above: Performed By: #### U AMIC ####[address] , [place] [address] lab Director: Murtaza Arceo MD Spec. [place],Ur 1.015 Normal 1.010-1.020 [facility] Comment on above: Performed By: #### U AMIC ####[address] [place] [address] Lab Director: Murtaza Arceo MD Urine RBC's 0 TO 2 Normal 0-2 [facility] Comment on above: Performed By: #### U AMIC ####[address] [place] [address] Lab Director: Murtaza Arceo MD Urine WBC's 0 TO 2 Normal 0-5 [facility] Comment on above: Performed By: #### U AMIC ####[address] [place] [address] Lab Director: Murtaza Arceo MD Urobilinogen,Ur Normal Normal 0.0-1.0 [facility] Comment on above: Performed By: #### U AMIC ####[address] , [place] [address] Lab Director: Murtaza Arceo MD Urinalysis with Microscopico n 08-06-2024 Bilirubin Ql (U) Negative NEGATIVE [facility] Clarity (U) Clear Clear [facility] Color (U) Yellow Yellow [facility] Epithelial cells LM.HPF (Urine sed) [#/Area] 0 TO 2 [facility] Glucose Test strip (U) [Mass/Vol] 3+ Abnormal NEGATIVE mg/dL [facility] Hemoglobin Auto test strip Ql (U) Negative NEGATIVE [facility] Interpretation and review of laboratory results Abnormal [facility] Ketones (U) [Mass/Vol] Negative NEGAT [facility] mg/dL [facility] Leukocyte esterase Test strip Ql (U) Negative NEGATIVE [facility] Nitrite Ql (U) Negative NEGATIVE [facility] pH (U) 6.0 [pH] 5.0 - 9.0 [facility] Protein (U) [Mass/Vol] Negative NEGAT SIMA mg/dL [facility] RBC LM.HPF (Urine sed) [#/Area] 0 TO 2 [facility] Specific gravity (U) [Rel density] 1.015 1.010 - 1.020 [facility] Urobilinogen Qn (U) Normal 0.0 - 1. 0 EU/dL [facility] WBC LM.HPF (Urine sed) [#/Area] 0 TO 2 [facility] eGFRon 08-06-2024 eGFR 88 mL/min/1.73 m2 Normal >=59 [facility] Comment on above: Performed By: #### 1 [id number] #### [facility] [address] [place] [address] BMPon 07-29-2024 Anion gap [Moles/Vol] 14 mmol/L Normal 6-16 [facility] Comment on above: Performed By: #### 2 [id number] #### [facility] [address] [place] [address] Calcium [Mass/Vol] 10.2 mg/dL Normal 8.9-11.1 [facility] Comment on above: Performed By: #### 2 [id number] #### [facility] [address] [place] [address] Chloride [Moles/Vol] 102 mmol/L Normal 101-111 [facility] Comment on above: Performed By: #### 2 [id number] #### [facility] [address] [place] [address] CO2 [Moles/Vol] 25 mmol/L Normal 21-31 [facility] Comment on above: Performed By: #### 2 [id number] #### [facility] [address] [place] [address] Creatinine [Mass/Vol] 0.7 mg/dL Normal 0.5-1.3 [facility] Comment on above: Performed By: #### 2 [id number] #### [facility] [address] [place] [address] Glucose [Mass/Vol] 169 mg/dL Normal 55-199 [facility] Comment on above: Performed By: #### 2 [id number] #### [facility] [address] [place] [address] Potassium [Moles/Vol] 3.9 mmol/L Normal 3.5-5.3 [facility] Comment on above: Performed By: #### 2 [id number] #### [facility] [address] [place] [address] Sodium [Moles/Vol] 137 mmol/L Normal 135-145 [facility] Comment on above: Performed By: #### 2 [id number] #### [facility] [address] [place] [address] Urea nitrogen [Mass/Vol] 11 mg/dL Normal 5-21 [facility] Comment on above: Performed By: #### 2 [id number] #### [facility] [address] [place] [address] Urea nitrogen/Creatinine [Mass ratio] 16 No Units Normal 10-20 [facility] Comment on above: Performed By: #### 2 [id number] #### [facility] [address] [place] [address] CBC w/ Auto Diffon 4 Basophils/100 WBC (Bld) 1.4 % Normal 0.0-2.0 [facility] Comment on above: Performed By: #### 2 [id number] #### [facility] [address] [place] [address] Basophils/Leukocytes Auto (Bld) [Pure # fraction] 0.2 E9/L Normal 0.0-0.2 [facility] Comment on above: Performed By: #### 2 [id number] #### [facility] [address] [place] [address] Eosinophils (Bld) [#/Vol] 0.2 E9/L Normal 0.0-0.5 [facility] Comment on above: Performed By: #### 2 [id number] #### [facility] [address] [place] [address] Eosinophils/100 WBC (Bld) 1.3 % Normal 0.0-8.0 [facility] Comment on above: Performed By: #### 2 [id number] #### [facility] [address] [place] [address] Erythrocyte distribution width (RBC) [Ratio] 13.8 % Normal 10.9-14.2 [facility] Comment on above: Performed By: #### 2 [id number] #### [facility] [address] [place] [address] Hematocrit (Bld) [Volume fraction] 44.0 % Normal 34.0-46.0 [facility] Comment on above: Performed By: #### 2 [id number] #### [facility] [address] [place] [address] Hemoglobin (Bld) [Mass/Vol] 15.2 g/dL Normal 12.0-16.0 [facility] Comment on above: Performed By: #### 2 [id number] #### [facility] [address] [place] [address] Lymphocytes (Bld) [#/Vol] 4.9 E9/L High 1.0-4.0 [facility] Comment on above: Performed By: #### 2 [id number] #### [facility] [address] [place] [address] Lymphocytes/100 WBC (Bld) 35.0 % Normal 14.0-50.0 [facility] Comment on above: Performed By: #### 2 [id number] #### [facility] [address] [place] [address] MCH (RBC) [Entitic mass] 29.8 pg Normal 27.0-34.0 [facility] Comment on above: Performed By: #### 2 [id number] #### [facility] [address] [place] [address] MCHC (RBC) [Mass/Vol] 34.5 g/dL Normal 31.4-36.0 [facility] Comment on above: Performed By: #### 2 [id number] #### [facility] [address] [place] [address] MCV (RBC) [Entitic vol] 86.4 fL Normal 80.0-100.0 [facility] Comment on above: Performed By: #### 2 [id number] #### [facility] [address] [place] [address] Monocytes (Bld) [#/Vol] 0.7 E9/L Normal 0.2-1.0 [facility] Comment on above: Performed By: #### 2 [id number] #### [facility] [address] [place] [address] Neutrophils (Bld) [#/Vol] 8.1 E9/L High 2.0-7.5 [facility] Comment on above: Performed By: #### 2 [id number] #### [facility] [address] [place] [address] Neutrophils/100 WBC (Bld) 57.3 % Normal 36.0-75.0 [facility] Comment on above: Performed By: #### 2 [id number] #### [facility] [address] [place] [address] Platelet mean volume (Bld) [Entitic vol] 8.7 fL Normal 6.4-10.8 [facility] Comment on above: Performed By: #### 2 [id number] #### [facility] [address] [place] [address] Platelets (Bld) [#/Vol] 327.0 E9/L Normal 150.0-500.0 [facility] Comment on above: Performed By: #### 2 [id number] #### [facility] [address] [place] [address] RBC (Bld) [#/Vol] 5.1 E12/L Normal 4.3-5.9 [facility] Comment on above: Performed By: #### 2 [id number] #### [facility] [address] [place] [address] WBC corrected for nucl RBC Auto (Bld) [#/Vol] 14.1 E9/L High 4.0-11.0 [facility] Comment on above: Performed By: #### 2 [id number] #### [facility] [address] [place] [address] CHEMISTRYOrdered By: SYSTEM SYSTEM on 07-29-2024 Albumin [Mass/Vol] 4.7 g/dL Normal 3.3 - 5.0 gm/dL Remisol Chem Albumin/Globulin [Mass ratio] 1.3 {ratio} Normal 1.1 - 2.2 Remisol Chem ALP [Catalytic activity/Vol] 86 [iU]/d Normal 21 - 98 Int._Unit/L Remisol Chem ALT No additional P-5'-P [Catalytic activity/Vol] 34 [iU]/d Normal 6 - 46 Int._Unit/L Remisol Chem Anion gap [Moles/Vol] 14 mmol/L Normal 6 - 16 mEq/L Remisol Chem AST [Catalytic activity/Vol] 32 [iU]/d Normal 5 - 43 Int._Unit/L Remisol Chem Bilirubin [Mass/Vol] 0.5 mg/dL Normal 0.0 - 1 .1 mg/dL Remisol Chem Bilirubin.direct [Mass/Vol] 0.1 mg/dL Normal 0.0 - 0.4 mg/dL Remisol Chem Bilirubin.indirect [Mass or moles/Vol] 0.4 mg/dL Normal 0.1 - 0.9 mg/dL Remisol Chem Calcium [Mass/Vol] 10.2 mg/dL Normal 8.9 - 11. 1 mg/dL [facility] Chem Chloride [Moles/Vol] 102 mmol/L Normal 101 - 1 11 mmol/L [facility] Chem CO2 [Moles/Vol] 25 mmol/L Normal 21 - 31 mmol/L Remisol Chem Creatinine [Mass/Vol] 0.7 mg/dL Normal 0.5 - 1.3 mg/dL Remisol Chem eGFR 119 mL/min/1.73 m2 Normal >=59mL/mi n/ 1.73 m2 Remisol Chem Globulin (S) [Mass/Vol] 3.5 g/dL Normal 1.4 - 4.0 gm/dL [facility] Chem Glucose [Mass/Vol] 169 mg/dL Normal 55 - 199 mg/dL [facility] Chem Lipase [Catalytic activity/Vol] 87 U/L High 13 - 58 unit/L [facility] Chem Potassium [Moles/Vol] 3.9 mmol/L Normal 3.5 - 5.3 mmol/L Remisol Chem Protein [Mass/Vol] 8.2 g/dL High 6.0 - 7.8 gm/dL Remisol Chem Sodium [Moles/Vol] 137 mmol/L Normal 135 - 145 mmol/L Remisol Chem Urea nitrogen [Mass/Vol] 11 mg/dL Normal 5 - 21 mg/dL Remisol Chem Urea nitrogen/Creatinine [Mass ratio] 16 mg/mg Normal 10 - 20 Remisol Chem ED Clinical Summaryon 2023 ED Clinical Summary ED Clinical Summary [place] [address] ED Clinical Summary Person Information Name: GAEL RUBY [facility] Age: 29 Years : 1995 Sex: Female Language: Somali PCP: YOSSI GOLDEN MD Marital Status: MRN: Visit Id: Visit Reason: Vomiting; Nausea; Abdominal pain; UPPER ABD PAIN Speciality: Acuity: 3 Enc Type: Emergency Med Service: Emergency Arrival: 07/29/2024 18:43:11 Discharge: 07/29/2024 21:13:13 LOS: 000 02:30 Checkin: 07/29/2024 18:43:11 Checkout: 07/29/2024 21:13:13 Dispo Type: Home (Routine DC) EVENTS: Event Name Event Status Request Date/Time Start Date/Time Complete Date/Time Arrive Complete 07/29/2024 18:43:11 07/29/2024 18:43:11 07/29/2024 18:43:11 Document Home Meds Request 07/29/2024 18:43:11 Triage Complete 07/29/2024 18:43:11 07/29/2024 18:53:54 07/29/2024 18:53:54 Registration Complete 07/29/2024 18:46:22 07/29/2024 18:46:22 07/29/2024 18:46:22 Reg Complete Request 07/29/2024 18:46:22 Reg Bed Request Complete 07/29/2024 18:46:22 07/29/2024 18:46:22 07/29/2024 18:46:22 Bed Assign Complete 07/29/2024 18:48:51 07/29/2024 18:48:51 07/29/2024 18:48:51 Dr Exam Complete 07/29/2024 18:48:51 07/29/2024 18:49:07 07/29/2024 18:49:07 RN Exam Complete 07/29/2024 18:48:51 07/29/2024 19:50:01 07/29/2024 19:50:01 Registration Request 07/29/2024 18:49:07 Isolation Screening Request 07/29/2024 18:53:55 Dr Exam Complete 07/29/2024 19:03:58 07/29/2024 19:03:58 07/29/2024 19:03:58 Pending Labs Complete 07/29/2024 19:04:35 07/29/2024 19:58:39 Lab Complete 07/29/2024 19:04:35 07/29/2024 19:39:47 Pending Labs Complete 07/29/2024 19:14:18 07/29/2024 19:14:18 07/29/2024 19:39:47 Lab Complete 07/29/2024 19:14:18 07/29/2024 19:14:18 07/29/2024 19:39:47 Meds Admin Complete 07/29/2024 19:25:28 07/29/2024 19:45:58 Meds Admin Complete 07/29/2024 20:02:08 07/29/2024 20:11:50 Meds Admin Complete 07/29/2024 20:50:29 07/29/2024 21:10:41 Discharge Complete 07/29/2024 20:50:38 07/29/2024 21:13:17 07/29/2024 21:13:17 Transfer Complete 07/29/2024 21:13:17 07/29/2024 21:13:17 07/29/2024 21:13:17 ADDRESS: [address] [place] [phone] PHYS DOC NOTES: MEDICAL INFORMATION: Prescriptions Given: Medications to Continue with No Changes Other Medications albuterol (Albuterol (Eqv-ProAir HFA) 90 mcg/inh inhalation aerosol) 2 Puffs Inhalation every 4 hours as needed Wheezing. dulaglutide (Trulicity Pen 1.5 mg/0.5 mL subcutaneous solution) 1.5 Milligram Subcutaneous every week. glipiZIDE (glipiZIDE 10 mg Tab) 1 Tablets By Mouth 2 times a day. hydrOXYzine (hydrOXYzine hydrochloride 25 mg Tab) 1 Tablets By Mouth every 6 hours as needed as needed for anxiety. hyoscyamine (hyoscyamine 0.375 mg ER Tab) 1 Tablets By Mouth at bedtime. ibuprofen insulin glargine (Lantus 100 units/mL Injection-Insulin) 30 Units Subcutaneous once a day (at bedtime). metoclopramide (Reglan 10 mg Tab) 1 Tablets By Mouth every 6 hours. Refills: 0. ondansetron (Zofran 4 mg Tab) 1 Tablets By Mouth every 8 hours as needed Nausea/Vomiting. Refills: 6. pantoprazole (Pantoprazole [address] Tab) 1 Tablets By Mouth 2 times a day. Refills: 0. promethazine (Phenergan 12.5 mg Supp) 1 Suppositories By rectum every 4 hours as needed Nausea/Vomiting. If zofran is ineffective. promethazine (Phenergan 25 mg Supp) 1 Suppositories By rectum every 12 hours as needed Nausea/Vomiting. Refills: 6. promethazine (Phenergan 25 mg Supp) 1 Suppositories By rectum every 6 hours as needed Nausea/Vomiting. Refills: 0. sertraline (sertraline 100 mg Tab) 1 Tablets By Mouth every day. tizanidine (tiZANidine 4 mg Tab) 1 Tablets By Mouth 3 times a day. tizanidine (Zanaflex) By Mouth. PATIENT EDUCATION INFORMATION: Instructions: Gastroparesis Follow up: With: Address: When: YOSSI GOLDEN [address], [place] [id number] ([employer] In 3 days 08/01/2024 DIAGNOSIS: Epigastric abdominal pain; Gastroparesis; Nausea & vomiting Normal [facility] ED Note-Physicianon 07-29-20 ED Note-Physician ED Note-Physician Basic Information Time Seen: Artem Duenas PA-C 07/29/2024 18:49 Chief Complaint Pt arrives to ed with c/o upper abdominal pain that started approx 1300 after eating spicy food. Hx of gastroperesis. Pt c/o n/v. History of Present Illness Patient is a 29-year-old female with PMH of gastroparesis and cyclical nausea and vomiting that presents today for evaluation of her epigastric abdominal pain with nausea and vomiting that started this afternoon. Patient states that she has been very careful with her food choices ever since being diagnosed with gastroparesis and has been doing well up until this afternoon. She states that she excellently ate some spicy food around 1300 today. She took a dose of Zofran as well as a dose of Reglan throughout the day without symptomatic relief. She is unable to keep anything down despite these medications. She has had nausea and vomiting throughout the day and states that the epigastric area in her abdomen is really bothering her. She denies any lower abdominal pain. She states this feels exactly like when she has had flareups in the past. She denies any fevers, bodies, chills. She denies any diarrhea or constipation. She denies any chest pain, shortness of breath, dyspnea. Review of Systems No other aggravating or relieving factors no other associated symptoms no other prior treatments or complaints. Family: Reviewed and noncontributory Social: lives at home Review of systems negative unless otherwise specified in the HPI. Physical Exam Vitals & Measurements T: 36.5 ???C(Oral) HR: 94(Peripheral) RR: 16 BP: 163/104 SpO2: 99% HT: 172.72 cm WT: 110.8 kg BMI: 37.14 General: The patient appears well and in no apparent distress. Patient is resting comfortably on cart. Skin: Warm, dry, no pallor noted. Head: Normocephalic, atraumatic Neck: No JVD Eye: PERRLA, EOMI ENT: Moist mucus membranes Cardiovascular: Regular rate and rhythm. Normal peripheral perfusion Respiratory: CTA bilaterally. No respiratory distress no accessory muscle use no obvious audible wheezing Chest Wall: no deformity Musculoskeletal: normal ROM, no deformity, no swelling GI: Soft no obvious distention. No rebound or rigidity. No guarding. Mild epigastric tenderness. Neurological: A&O moves all extremities equal strength and symmetry Psychiatric: Cooperative and appropriate Medical Decision Making Patient is a 29-year-old female with PMH of gastroparesis and cyclical nausea vomiting presents today for evaluation of her epigastric abdominal pain with nausea and vomiting that started around 1300 after eating spicy food. She has been doing well with dietary adjustments but accidentally ate the wrong thing today. She took a dose of Zofran and Reglan at home without relief. She states it feels exactly like she has had a flareup in the past. On exam the patient is afebrile and nontoxic-appearing. She does have mild epigastric tenderness. The remainder of her abdomen is soft and nontender tender with no evidence of distention or guarding. Labs demonstrate mild leukocytosis at 14.1. No other acute findings. UA negative for UTI. Patient was given a dose of promethazine here in the ED with improvement of her symptoms. She was able to pass p.o. challenge and was provided with a GI cocktail as well as tramadol. 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 Return to ED precautions were reviewed with the patient at length. Assessment/Plan Epigastric abdominal pain (R10.13: Epigastric pain) Gastroparesis (K31.84: Gastroparesis) Nausea & vomiting (R11.2: Nausea with vomiting, unspecified) Orders: Al hydroxide/Mg hydroxide/simethicone, 30 mL, Susp-Oral, Oral, Once, Stop date 07/29/24 20:01:00 EST, STAT, Start date 07/29/24 20:01:00 EST atropine/hyoscyamine/P B/scopolamine, 10 mL, Elixir, Oral, Once, Stop date 07/29/24 20:01:00 EST, STAT, Start date 07/29/24 20:01:00 EST lidocaine topical, 200 mg, 10 mL, Soln-Oral, Oral, Once, Stop date 07/29/24 20:01:00 EST, STAT, Start date 07/29/24 20:01:00 EST promethazine 12.5 mg + Sodium Chloride 0.9% intravenous solution 50 mL, Injection, IV Piggyback, Once, Stop date 07/29/24 19:25:00 EST, STAT, Start date 07/29/24 19:25:00 EST, 151.5 mL/hr, Infuse over 20 minute(s) Medications Administered Given Al hydroxide/Mg hydroxide/simethicone 200 mg-200 mg-20 mg/5 mL oral suspension, 30 mL, Oral Elixir, 10 mL, Oral lidocaine Viscous Top 2% Deniz, 200 mg, Oral Sodium Chloride 0.9% IV Deniz 50 mL [F] 50 mL + [id number] [F] 12.5 mg, IV Piggyback Disposition Plan Patient Discharge Condition Stable, improved Discharge Disposition Home Discharge Prescription List Prescriptions No active prescription medications Follow-up With When Contact Information YOSSI GOLDEN In 3 days 08/01/2024 EST [address] [place] [address] Business (1) Additional I (more content not included)... Normal [facility] Comment on above: Result Comment: Elec tronically Signed By: Artem Duenas PA-C\.br\Date and Time Signed: 07/29/24 20:53 EST\.br\Electronically Co-Signed By: Tonny Butler DO\.br\Date and Time Co-Signed: 07/29/24 23:48 EST ED Patient Summaryon 024 ED Patient Summary ED Patient Summary [place] [id number] Patient Discharge Instructions Person Information Name: GAEL RUBY Age: 29 Years Arrival Date: 07/29/2024 18:43:11 Discharge Diagnosis: Epigastric abdominal pain; Gastroparesis; Nausea & vomiting Primary Care Physician: YOSSI GOLDEN MD Provider Information Primary Provider: Tonny Butler DO [employer] Processor:Artem Duenas PA-C The exam and treatment you received in the Emergency Department were for an urgent problem and are not intended as complete care. It is important that you follow up with a doctor, nurse practitioner, or physician???s secretary administrative assistant for ongoing care. If your symptoms become worse or you do not improve as expected and you are unable to reach your usual health care provider, you should return to the Emergency Department. We are available 24 hours a day. GAEL RUBY has been given the following list of patient education materials, prescriptions and follow-up instructions: Follow-up Instructions: With: Address: When: YOSSI GOLDEN [address], [place] [id number] Business (1) In 3 days 08/01/2024 In the event that this physician does not participate in your insurance network, please consult with your insurance company to find a nearby participating provider. Patient Education Materials: Gastroparesis A MESSAGE TO ALL PATIENTS REGARDING OPIOIDS PRESCRIPTION OPIOIDS: WHAT YOU NEED TO KNOW Prescription opioids can be used to help relieve [id number] pain and are often prescribed following a surgery or injury, or for certain health conditions. These medications can be an important part of the treatment but also come with serious risks. It is important to work with your healthcare provider to make sure you are getting the safest, most effective care. WHAT ARE THE RISKS AND SIDE EFFECTS OF OPIOID USE? Prescription opioids carry serious risks of addiction and overdose, especially with prolonged use. An opioid overdose, often marked by slowed breathing, can cause sudden . The use of prescription opioids can have a number of side effects as well, even when taken as directed: ??? Tolerance???meaning you might need to take more of the medication for the same pain relief ??? Physical dependence???meaning you have symptoms of withdrawal when a medication is stopped ??? Increased sensitivity to pain ??? Constipation ??? Nausea, vomiting, and dry mouth ??? Sleepiness and dizziness ??? Confusion ??? Depression ??? Low levels of testosterone that can result in lower sex drive, energy, and strength ??? Itching and sweating RISKS ARE GREATER WITH: ??? History of drug misuse, substance use disorder, or overdose ??? Mental health conditions (such as depression or anxiety) ??? Sleep apnea ??? Older age (65 years and older) ??? Avoid alcohol while taking prescription opioids. Also, unless specifically advised by your health care provider, medications to avoid include: ??? Benzodiazepines (such as Xanax or Valium) ??? Muscle relaxants (such as Soma or Flexeril) ??? Hypnotics (such as Ambien or Lunesta) ??? Other prescription opioids KNOW YOUR OPTIONS Talk to your health care provider about ways to manage your pain that don???t involve prescription opioids. Some of these options may actually work better and have fewer risks and side effects. Options may include: ??? Pain relievers such as acetaminophen, ibuprofen, and naproxen ??? Some medication that are also used for depression or seizures ??? Physical therapy and exercise ??? Cognitive behavioral therapy, a psychological, goal-directed approach, in which patients learn how to modify physical, behavioral, and emotional triggers of pain and stress. IF YOU ARE PRESCRIBED OPIOIDS FOR PAIN: ??? Never take opioids in greater amounts or more often than prescribed. ??? Follow up with your primary health care provider. o Work together to create a plan on how to manage your pain. o Talk about ways to help manage your pain that don???t involve prescription opioids. o Talk about any and all concerns and side effects. ??? Help prevent misuse and abuse o Never sell or share prescription opioids. o Never use another person???s prescription opioids. ??? Store prescription opioids in a secure place and out of reach of others (this may include visitors, children, friends, and family). ??? Safely dispose of unused prescription opioids: Find your community drug take-back program or your pharmacy mail-back program, or flush them down the toilet, following guidance from the Food and Drug Administration (www.fda.gov/Drugs/Res ourcesForYou). ??? Visit www.cdc.gov/drugoverdo se to learn about the risks of opioids abuse and overdose. ??? If you believe you may be struggling with addiction, tell (more content not included)... Normal [facility] Extra Blueon 07-29-2024 Tube Collected Plasma Yes Invalid Interpretation Code [facility] Comment on above: Performed By: #### 1 [id number] #### [facility] [address] [place] [address] HEMATOLOGYOrdered By: SYSTEM SYSTEM on 07-29-2024 Basophils/100 WBC (Bld) 1.4 % Normal 0.0 - 2.0 % Remisol Heme Basophils/Leukocytes Auto (Bld) [Pure # fraction] 0.2 E9/L Normal 0.0 - 0.2 E9/L Remisol Heme Eosinophils (Bld) [#/Vol] 0.2 E9/L Normal 0.0 - 0.5 E9/L Remisol Heme Eosinophils/100 WBC (Bld) 1.3 % Normal 0.0 - 8.0 % Remisol Heme Erythrocyte distribution width (RBC) [Ratio] 13.8 % Normal 10.9 - 14.2 % Remisol Heme Hematocrit (Bld) [Volume fraction] 44.0 % Normal 34.0 - 46.0 % Remisol Heme Hemoglobin (Bld) [Mass/Vol] 15.2 g/dL Normal 12.0 - 16.0 gm/dL Rem[facility] Heme Lymphocytes (Bld) [#/Vol] 4.9 E9/L High 1.0 - 4.0 E9/L [facility] Heme Lymphocytes/100 WBC (Bld) 35.0 % Normal 14.0 - 50.0 % Rem[facility] Heme MCH (RBC) [Entitic mass] 29.8 pg Normal 27.0 - 34.0 pg Remisol Heme MCHC (RBC) [Mass/Vol] 34.5 g/dL Normal 31.4 - 36.0 gm/dL Rem[facility] Heme MCV (RBC) [Entitic vol] 86.4 fL Normal 80.0 - 100.0 fL [facility] Heme Monocytes (Bld) [#/Vol] 0.7 E9/L Normal 0.2 - 1.0 E9/L Rem[facility] Heme Monocytes/100 WBC (Bld) 5.0 % Normal 4.0 - 14.0 % [facility] Heme Neutrophils (Bld) [#/Vol] 8.1 E9/L High 2.0 - 7.5 E9/L [facility] Heme Neutrophils/100 WBC (Bld) 57.3 % Normal 36.0 - 75.0 % [facility] Heme Platelet mean volume (Bld) [Entitic vol] 8.7 fL Normal 6.4 - 10.8 fL [facility] Heme Platelets (Bld) [#/Vol] 327.0 E9/L Normal 150.0 - 500.0 E9/L [facility] Heme RBC (Bld) [#/Vol] 5.1 E12/L Normal 4.3 - 5.9 E12/L [facility] Heme WBC corrected for nucl RBC Auto (Bld) [#/Vol] 14.1 E9/L High 4.0 - 11.0 E9/L Rem[facility] Heme Hep Func Panelon 07-29-2024 Albumin [Mass/Vol] 4.7 g/dL Normal 3.3-5.0 [facility] Comment on above: Performed By: #### 2 [id number] #### [facility] [address] [place] [address] Albumin/Globulin (S) [Mass conc ratio] 1.3 Normal 1.1-2.2 [facility] Comment on above: Performed By: #### 2 [id number] #### [facility] [address] [place] [address] ALP [Catalytic activity/Vol] 86 Int._Unit/L Normal 21-98 [facility] Comment on above: Performed By: #### 2 [id number] #### [facility] [address] [place] [address] ALT No additional P-5'-P [Catalytic activity/Vol] 34 Int._Unit/L Normal 6-46 [facility] Comment on above: Performed By: #### 2 [id number] #### [facility] [address] [place] [address] AST [Catalytic activity/Vol] 32 Int._Unit/L Normal 5-43 [facility] Comment on above: Performed By: #### 2 [id number] #### [facility] [address] [place] [address] Bilirubin [Mass/Vol] 0.5 mg/dL Normal 0.0-1.1 [facility] Comment on above: Performed By: #### 2 [id number] #### [facility] [address] [place] [address] Bilirubin.direct [Mass/Vol] 0.1 mg/dL Normal 0.0-0.4 [facility] Comment on above: Performed By: #### 2 [id number] #### [facility] [address] [place] [address] Bilirubin.indirect [Mass or moles/Vol] 0.4 mg/dL Normal 0.1-0.9 [facility] Comment on above: Performed By: #### 2 [id number] #### [facility] [address] [place] [address] Globulin (S) [Mass/Vol] 3.5 g/dL Normal 1.4-4.0 [facility] Comment on above: Performed By: #### 2 [id number] #### [facility] [address] [place] [address] Protein [Mass/Vol] 8.2 g/dL High 6.0-7.8 [facility] Comment on above: Performed By: #### 2 [id number] #### [facility] [address] [place] [address] Lipase Levelon 07-29-2024 Lipase [Catalytic activity/Vol] 87 U/L High 13-58 [facility] Comment on above: Performed By: #### 2 [id number] #### [facility] [address] [place] [address] UA with Cult Rflxon 07-29-20 24 Bilirubin Ql (U) Negative Normal Negative [facility] Comment on above: Performed By: #### 4 [id number] #### [facility] [address] [place] [address] Clarity (U) Clear Normal Clear [facility] Comment on above: Performed By: #### 4 [id number] #### [facility] [address] [place] [address] Color (U) Light-Yellow Normal Yellow [facility] Comment on above: Result Comment: Micr oscopic readings are only performed on those samples that meet specific criteria set forth by [facility]. Performed By: #### 4 [id number] #### [facility] [address] [place] [address] Glucose Ql (U) 4+ mg/dL Abnormal Negative [facility] Comment on above: Performed By: #### 4 [id number] #### [facility] [address] [place] [address] Hemoglobin Auto test strip (U) [Mass/Vol] Negative Normal Negative [facility] Comment on above: Performed By: #### 4 [id number] #### [facility] [address] [place] [address] Ketones Auto test strip Ql (U) Negative Normal Negative [facility] Comment on above: Performed By: #### 4 [id number] #### [facility] [address] [place] [address] Leukocyte esterase Auto test strip Ql (U) Negative Normal Negative [facility] Comment on above: Performed By: #### 4 [id number] #### [facility] [address] [place] [address] Nitrite Auto test strip Ql (U) Negative Normal Negative [facility] Comment on above: Performed By: #### 4 [id number] #### [facility] [address] [place] [address] pH (U) 6.0 [pH] Invalid Interpretation Code 5.0-9.0 [facility] Comment on above: Performed By: #### 4 [id number] #### [facility] [address] [place] [address] Protein Ql (U) Trace Abnormal Negative [facility] Comment on above: Performed By: #### 4 [id number] #### [facility] [address] [place] [address] Specific gravity (U) [Rel density] 1.031 Invalid Interpretation Code 1.005-1.030 [facility] Comment on above: Performed By: #### 4 [id number] #### [facility] [address] [place] [address] Urobilinogen (U) [Mass/Vol] Negative Normal Negative [facility] Comment on above: Performed By: #### 4 [id number] #### [facility] [address] [place] [address] Type of Urine collection method Clean Catch Normal [facility] Comment on above: Performed By: #### 4 [id number] #### [facility] [address] [place] [address] URINALYSISOrdered By: SYSTEM SYSTEM on 07-29-2024 Bilirubin Ql (U) Negative Normal Negativemg/ dL [facility] UA Auto SS Clarity (U) Clear (07/29/24 7:41 PM) Normal Clear [facility] UA Auto SS Color (U) Light-Yellow 1 (07/29/24 7:41 PM) Normal Yellow [facility] UA Auto SS Comment on above: Interpretive Data: M icroscopic readings are only performed on those samples that meet specific criteria set forth by [facility] [facility] Glucose Ql (U) 4+ mg/dL Invalid Interpretation Code Negativemg/ dL FT UA Auto SS Hemoglobin Auto test strip (U) [Mass/Vol] Negative Normal Negativemg/ dL [facility] UA Auto SS Ketones Auto test strip Ql (U) Negative Normal Negativemg/ dL [facility] UA Auto SS Leukocyte esterase Auto test strip Ql (U) Negative Normal NegativeLeu /uL [facility] UA Auto SS Nitrite Auto test strip Ql (U) Negative Normal Negativemg/ dL [facility] UA Auto SS pH (U) 6.0 *NA* (07/29/24 7:41 PM) Invalid Interpretation Code 5.0 - 9.0 [facility] UA Auto SS Protein Ql (U) Trace mg/dL Invalid Interpretation Code Negativemg/ dL [facility] UA Auto SS Specific gravity (U) [Rel density] 1.031 *NA* (07/29/24 7:41 PM) Invalid Interpretation Code 1.005 - 1.030 [facility] UA Auto SS Urobilinogen (U) [Mass/Vol] Negative Normal Negativemg/ dL [facility] UA Auto SS URINALYSISOrdered By: Najma Leone on 07-29-2024 UA Spec Desc Clean Catch (07/29/24 7:41 PM) Normal [facility] UA Auto SS eGFRon 07-29-2024 eGFR 119 mL/min/1.73 m2 Normal >=59 [facility] Comment on above: Performed By: #### 1 [id number] #### [facility] [address] [place] [address] Basic Metab w/rfx MGon 07-08 Anion gap [Moles/Vol] 10 mmol/L Normal - [facility] Comment on above: Performed By: #### B MPX ####[facility] [place] [address] Lab Director: Murtaza Arceo MD BUN/CRE Ratio 13 Normal - [facility] Comment on above: Performed By: #### B MPX ####[facility] , [place] [id number] Lab Director: Murtaza Arceo MD Calcium [Mass/Vol] 9.2 mg/dL Normal 8.6-10.4 [facility] Comment on above: Performed By: #### B MPX ####[facility] [place] [address] Lab Director: Murtaza Arceo MD Chloride [Moles/Vol] 105 mmol/L Normal 98-107 [facility] Comment on above: Performed By: #### B MPX ####[facility] [place] [address] Lab Director: Murtaza Arceo MD CO2 [Moles/Vol] 25 mmol/L Normal 20-31 [facility] Comment on above: Performed By: #### B MPX ####[address] [place] [address] lab Director: Murtaza Arceo MD Creatinine [Mass/Vol] 0.7 mg/dL Normal 0.50-0.90 [facility] Comment on above: Performed By: #### B MPX ####[address] [place] [address] lab Director: Murtaza Arceo MD GFR/1.73 sq M.predicted among non-blacks MDRD (S/P/Bld) [Vol rate/Area] mL/min/{1.73_m2} Normal >60 [facility] Comment on above: Result Comment: Thes [...] renal tubular secretion. Performed By: #### B MPX ####[address] [place] [address] Lab Director: Murtaza Arceo MD Glucose [Mass/Vol] 173 mg/dL High 74-99 [facility] Comment on above: Performed By: #### B MPX ####[address] [place] [address] lab Director: Murtaza Arceo MD Potassium [Moles/Vol] 4.3 mmol/L Normal 3.7-5.3 [facility] Comment on above: Performed By: #### B MPX ####[address] [place] [address] lab Director: Murtaza Arceo MD Sodium [Moles/Vol] 140 mmol/L Normal 136-145 [facility] Comment on above: Performed By: #### B MPX ####[facility] [place] [address] lab Director: Murtaza Arceo MD Urea nitrogen [Mass/Vol] 9 mg/dL Normal 6-20 [facility] Comment on above: Performed By: #### B MPX ####[facility] [place] [address] lab Director: Murtaza Arceo MD Basic Metabolic Panel w/ Ref kendell to MGon 07-08-2024 Anion gap [Moles/Vol] 10 mmol/L 9 - 16 mmol/L [facility] Calcium [Mass/Vol] 9.2 mg/dL 8.6 - 10. 4 mg/dL [facility] Chloride [Moles/Vol] 105 mmol/L 98 - 10 7 mmol/L [facility] CO2 [Moles/Vol] 25 mmol/L 20 - 31 mmol/L [facility] Creatinine [Mass/Vol] 0.7 mg/dL 0.50 - 0.90 mg/dL [facility] Est, Glom Filt Rate - PINF [facility] Comment on above: These results are not [...] that affects renal tubular secretion. Glucose [Mass/Vol] 173 mg/dL High 74 - 99 mg/dL [facility] Interpretation and review of laboratory results Abnormal [facility] Potassium [Moles/Vol] 4.3 mmol/L 3.7 - 5.3 mmol/L [facility] Sodium [Moles/Vol] 140 mmol/L 136 - 145 mmol/L [facility] Urea nitrogen [Mass/Vol] 9 mg/dL 6 - 20 mg/dL [facility] Urea nitrogen/Creatinine [Mass ratio] 13 mg/mg 9 - 20 [facility] Glucose, Whole Bloodon 07-08 Glucose [Mass/Vol] 201 mg/dL High 74 - 100 mg/dL [facility] Interpretation and review of laboratory results Abnormal [facility] Glucose [Mass/Vol] 201 mg/dL High 74-100 [facility] Glucose [Mass/Vol] 181 mg/dL High 74 - 100 mg/dL [facility] Interpretation and review of laboratory results Abnormal [facility] Glucose [Mass/Vol] 181 mg/dL High 74-100 [facility] BASIC METABOLIC PANEL R EFLEX MGon 07-08-2024 Anion gap [Moles/Vol] 10 mmol/L 9 - 16 mmol/L [facility] Calcium [Mass/Vol] 9.2 mg/dL 8.6 - 10. 4 mg/dL [facility] Chloride [Moles/Vol] 105 mmol/L 98 - 10 7 mmol/L [facility] CO2 [Moles/Vol] 25 mmol/L 20 - 31 mmol/L [facility] Creatinine [Mass/Vol] 0.7 mg/dL 0.50 - 0.90 mg/dL [facility] Glucose [Mass/Vol] 173 mg/dL High 74 - 99 mg/dL [facility] Interpretation and review of laboratory results [facility] 9 - 20 [facility] >90 - PIN[facility] Comment on above: These results are not [...] following therapy that affects renal tubular secretion. Potassium [Moles/Vol] 4.3 mmol/L 3.7 - 5.3 mmol/L [facility] Sodium [Moles/Vol] 140 mmol/L 136 - 145 mmol/L [facility] Urea nitrogen [Mass/Vol] 9 mg/dL 6 - 20 mg/dL [facility] Original Ordering Provider: AISSATOU A [facility] CBC with Auto Differentialon 07-07-2024 Basophils (Bld) [#/Vol] 0.06 10*3/uL [facility] Basophils/100 WBC (Bld) 1 % 0 - 2 % [facility] Eosinophils (Bld) [#/Vol] 0.17 10*3/uL [facility] Eosinophils/100 WBC (Bld) 2 % 1 - 4 % [facility] Erythrocyte distribution width (RBC) [Ratio] 12.7 % 11.8 - 14.4 % [facility] Hematocrit (Bld) [Volume fraction] 45.5 % 36.3 - 47.1 % [facility] Hemoglobin (Bld) [Mass/Vol] 15.2 g/dL High 11.9 - 15.1 g/dL [facility] Immature granulocytes (Bld) [#/Vol] 0.04 10*3/uL [facility] Immature granulocytes/100 WBC (Bld) 0 % 0 [facility] Interpretation and review of laboratory results Abnormal [facility] Lymphocytes/100 WBC (Bld) 25 % 24 - 43 % [facility] Lymphocytes/100 WBC (Bld) 2.53 % [facility] MCH (RBC) [Entitic mass] 29.9 pg 25.2 - 33.5 pg [facility] MCHC (RBC) [Mass/Vol] 33.4 g/dL 28.4 - 34.8 g/dL [facility] MCV (RBC) [Entitic vol] 89.4 fL 82.6 - 102.9 fL [facility] Monocytes/100 WBC (Bld) 5 % 3 - 12 % [facility] Monocytes/100 WBC (Bld) 0.52 % [facility] Neutrophils/100 WBC (Bld) 67 % High 36 - 65 % [facility] Nucleated RBC/100 WBC (Bld) [Ratio] 0.0 % 0.0 per 100 WBC [facility] Platelet mean volume (Bld) [Entitic vol] 10.4 fL 8.1 - 13.5 fL [facility] Platelets (Bld) [#/Vol] 294 10*3/uL [facility] RBC (Bld) [#/Vol] 5.09 10*6/uL 3.95 - 5.1 1 m/uL [facility] Segmented neutrophils/100 WBC (Bld) 6.70 % [facility] WBC other (Bld) [#/Vol] 10.0 [facility] CBC with Diffon 07-07-2024 Abs. Basophil 0.06 k/uL Normal 0.00-0.20 [facility] Comment on above: Performed By: #### C DP, CP, LIP ####[address] , [place] [address])[phone] Director: Murtaza Arceo MD Abs.Imm.Granulocyte 0.04 k/uL Normal 0.00-0.30 [facility] Comment on above: Performed By: #### C DP, CP, LIP ####[address] , [place] [address])[phone] Director: Murtaza Arceo MD Abs.Neutrophil (Seg) 6.70 k/uL Normal 1.50-8.10 [facility] Comment on above: Performed By: #### C DP, CP, LIP ####[address] , [place] [address])[phone] Director: Murtaza Arceo MD Basophils/100 WBC (Bld) 1 % Normal 0-2 [facility] Comment on above: Performed By: #### C DP, CP, LIP ####[address] , [place] [address])[phone] Director: Murtaza Arceo MD Eosinophils (Bld) [#/Vol] 0.17 10*3/uL Normal 0.00-0.44 [facility] Comment on above: Performed By: #### C DP, CP, LIP ####[address] [place], [place] [address])[phone] Director: Murtaza Arceo MD Eosinophils/100 WBC (Bld) 2 % Normal 1-4 [facility] Comment on above: Performed By: #### C DP, CP, LIP ####[address] , [place] [address] Lab Director: Murtaza Arceo MD Erythrocyte distribution width (RBC) [Ratio] 12.7 % Normal 11.8-14.4 [facility] Comment on above: Performed By: #### C DP, CP, LIP ####[address] , [facility] Lab Director: Murtaza Arceo MD Hematocrit (Bld) [Volume fraction] 45.5 % Normal 36.3-47.1 [facility] Comment on above: Performed By: #### C DP, CP, LIP ####[address] , [place] [address])[phone] Director: Murtaza Arceo MD Hemoglobin (Bld) [Mass/Vol] 15.2 g/dL High 11.9-15.1 [facility] Comment on above: Performed By: #### C DP CP, LIP ####[address] , [facility]83[facility])[phone] Director: Murtaza Arceo MD Immature granulocytes/100 WBC (Bld) 0 % Normal 0 [facility] Comment on above: Performed By: #### C DP, CP, LIP ####[address] , [facility] Lab Director: Murtaza Arceo MD Lymphocytes (Bld) [#/Vol] 2.53 10*3/uL Normal 1.10-3.70 [facility] Comment on above: Performed By: #### C DP, CP, LIP ####[address] [place] [address] Lab Director: Murtaza Arceo MD Lymphocytes/100 WBC (Bld) 25 % Normal 24-43 [facility] Comment on above: Performed By: #### C DP, CP, LIP ####[address] [place] [address] Lab Director: Murtaza Arceo MD MCH (RBC) [Entitic mass] 29.9 pg Normal 25.2-33.5 [facility] Comment on above: Performed By: #### C DP, CP, LIP ####[address] , [facility] lab Director: Murtaza Arceo MD MCHC (RBC) [Mass/Vol] 33.4 g/dL Normal 28.4-34.8 [facility] Comment on above: Performed By: #### C DP, CP, LIP ####[address] [place] [id number] lab Director: Murtaza Arceo MD MCV (RBC) [Entitic vol] 89.4 fL Normal 82.6-102.9 [facility] Comment on above: Performed By: #### C DP, CP, LIP ####[address] [place] [address] lab Director: Murtaza Arceo MD Monocytes (Bld) [#/Vol] 0.52 10*3/uL Normal 0.10-1.20 [facility] Comment on above: Performed By: #### C DP, CP, LIP ####[address] [place] [address] lab Director: Murtaza Arceo MD Monocytes/100 WBC (Bld) 5 % Normal 3-12 [facility] Comment on above: Performed By: #### C DP, CP, LIP ####[address] , [place] [id number] lab Director: Murtaza Arceo MD Neutrophil (Seg) 67 % High 36-65 [facility] Comment on above: Performed By: #### C DP, CP, LIP ####[address] [place] [address] Lab Director: Murtaza Arceo MD NRBC Automated 0.0 per 100 WBC Normal 0.0 [facility] Comment on above: Performed By: #### C DP, CP, LIP ####[address] , [facility]83[facility])[phone] Director: Murtaza Arceo MD Platelet mean volume (Bld) [Entitic vol] 10.4 fL Normal 8.1-13.5 [facility] Comment on above: Performed By: #### C DP, CP, LIP ####[address] , [id number])[phone] Director: Murtaza Arceo MD Platelets (Bld) [#/Vol] 294 10*3/uL Normal 138-453 [facility] Comment on above: Performed By: #### C DP, CP, LIP ####[address] , [place] [address])[phone] Director: Murtaza Arceo MD RBC (Bld) [#/Vol] 5.09 10*6/uL Normal 3.95-5.11 [facility] Comment on above: Performed By: #### C DP, CP, LIP ####[address] , [place] [address])[phone] Director: Murtaza rAceo MD WBC (Bld) [#/Vol] 10.0 10*3/uL Normal 3.5-11.3 [facility] Comment on above: Performed By: #### C DP, CP, LIP ####[address] , [place] [id number] Lab Director: Murtaza Arceo MD Comp Metabolic Profon 2023 Albumin [Mass/Vol] 4.4 g/dL Normal 3.5-5.2 [facility] Comment on above: Performed By: #### C DP, CP, LIP ####[address] [place] [address] Lab Director: Murtaza Arceo MD Albumin/Glob Ratio 1.5 Normal 1.0-2.5 [facility] Comment on above: Performed By: #### C DP, CP, LIP ####[address] [place] [address] Lab Director: Murtaza Arceo MD Alkaline Phos 100 U/L Normal 35-104 [facility] Comment on above: Performed By: #### C DP, CP, LIP ####[address] [place] [address] Lab Director: Murtaza Arceo MD ALT [Catalytic activity/Vol] 34 U/L Normal 10-35 [facility] Comment on above: Performed By: #### C DP, CP, LIP ####[address] [place] [address] Lab Director: Murtaza Arceo MD Anion gap [Moles/Vol] 13 mmol/L Normal 9-16 [facility] Comment on above: Performed By: #### C DP, CP, LIP ####[address] [place] [address] Lab Director: Murtaza Arceo MD AST [Catalytic activity/Vol] 34 U/L Normal 10-35 [facility] Comment on above: Performed By: #### C DP, CP, LIP ####[address] [place] [address] Lab Director: Murtaza Arceo MD Bilirubin [Mass/Vol] 0.3 mg/dL Normal 0.00-1.20 [facility] Comment on above: Performed By: #### C DP, CP, LIP ####[address] [place] [address] lab Director: Murtaza Arceo MD BUN/CRE Ratio 17 Normal 9-20 [facility] Comment on above: Performed By: #### C DP, CP, LIP ####[address] [place] [address] lab Director: Murtaza Arceo MD Calcium [Mass/Vol] 9.9 mg/dL Normal 8.6-10.4 [facility] Comment on above: Performed By: #### C DP, CP, LIP ####[address] [place] [address] lab Director: Murtaza Arceo MD Chloride [Moles/Vol] 104 mmol/L Normal 98-107 [facility] Comment on above: Performed By: #### C DP, CP, LIP ####[address] [place] [address] lab Director: Murtaza Arceo MD CO2 [Moles/Vol] 24 mmol/L Normal 20-31 [facility] Comment on above: Performed By: #### C DP CP, LIP ####[address] [place] [address] lab Director: Murtaza Arceo MD Creatinine [Mass/Vol] 0.7 mg/dL Normal 0.50-0.90 [facility] Comment on above: Performed By: #### C DP, CP, LIP ####[address] , [place] [address] lab Director: Murtaza Arceo MD GFR/1.73 sq M.predicted among non-blacks MDRD (S/P/Bld) [Vol rate/Area] mL/min/{1.73_m2} Normal >60 [facility] Comment on above: Result Comment: Thes [...] Performed By: #### C ANA ROBLEDO, LIP ####[address] [place] [address] Lab Director: Murtaza Arceo MD Glucose [Mass/Vol] 210 mg/dL High 74-99 [facility] Comment on above: Performed By: #### C VENKAT CP, LIP ####[address] [place] [address] Lab Director: Murtaza Arceo MD Potassium [Moles/Vol] 4.3 mmol/L Normal 3.7-5.3 [facility] Comment on above: Performed By: #### C ANA ROBLEDO, LIP ####[address] [place] [address] Lab Director: Murtaza Arceo MD Protein [Mass/Vol] 7.4 g/dL Normal 6.6-8.7 [facility] Comment on above: Performed By: #### C ANA ROBLEDO, LIP ####[address] [place] [address] Lab Director: Murtaza Arceo MD Sodium [Moles/Vol] 141 mmol/L Normal 136-145 [facility] Comment on above: Performed By: #### C VENKAT CP, LIP ####[address] [place] [address] Lab Director: Murtaza Arceo MD Urea nitrogen [Mass/Vol] 12 mg/dL Normal 6-20 [facility] Comment on above: Performed By: #### C VENKAT CP, LIP ####[address] [place] [address] Lab Director: Murtaza Arceo MD [facility] Metabolic [facility] 07-07-2024 Albumin [Mass/Vol] 4.4 g/dL 3.5 - 5.2 g/dL [facility] Albumin/Globulin [Mass ratio] 1.5 {ratio} 1.0 - 2.5 [facility] ALP [Catalytic activity/Vol] 100 U/L 35 - 104 U/L [facility] ALT [Catalytic activity/Vol] 34 U/L 10 - 35 U/L [facility] Anion gap [Moles/Vol] 13 mmol/L 9 - 16 mmol/L [facility] AST [Catalytic activity/Vol] 34 U/L 10 - 35 U/L [facility] Bilirubin [Mass/Vol] 0.3 mg/dL 0.00 - 1.20 mg/dL [facility] Calcium [Mass/Vol] 9.9 mg/dL 8.6 - 10. 4 mg/dL [facility] Chloride [Moles/Vol] 104 mmol/L 98 - 10 7 mmol/L [facility] CO2 [Moles/Vol] 24 mmol/L 20 - 31 mmol/L [facility] Creatinine [Mass/Vol] 0.7 mg/dL 0.50 - 0.90 mg/dL [facility] Est, Glom [place]ot Rate - PINF [facility] Comment on above: These results are not [...] that affects renal tubular secretion. Glucose [Mass/Vol] 210 mg/dL High 74 - 99 mg/dL [facility] Potassium [Moles/Vol] 4.3 mmol/L 3.7 - 5.3 mmol/L [facility] Protein [Mass/Vol] 7.4 g/dL 6.6 - 8.7 g/dL [facility] Sodium [Moles/Vol] 141 mmol/L 136 - 145 mmol/L [facility] Urea nitrogen [Mass/Vol] 12 mg/dL 6 - 20 mg/dL [facility] Urea nitrogen/Creatinine [Mass ratio] 17 mg/mg 9 - 20 [facility] Glucose, Whole Bloodon 07-07 Glucose [Mass/Vol] 177 mg/dL High 74 - 100 mg/dL [facility] Interpretation and review of laboratory results Abnormal [facility] Glucose [Mass/Vol] 177 mg/dL High 74-100 [facility] Glucose [Mass/Vol] 169 mg/dL High 74 - 100 mg/dL [facility] Interpretation and review of laboratory results Abnormal [facility] Glucose [Mass/Vol] 169 mg/dL High 74-100 [facility] Lipaseon 07-07-2024 Lipase [Catalytic activity/Vol] 75 U/L High 13 - 60 U/L [facility] Lipase [Catalytic activity/Vol] 75 U/L High 13-60 [facility] Comment on above: Performed By: #### C DP, CP, LIP ####[facility] [place] [address] lab Director: Murtaza Arceo MD MHPT GLUCOSE, WHOLE BLOODon 07-07-2024 Glucose [Mass/Vol] 169 mg/dL High 74 - 100 mg/dL [facility] Interpretation and review of laboratory results Abnormal [facility] Original Ordering Provider: DEDRA SCHILLING MD [facility] Microscopic Urinalysison Bacteria LM Ql (Urine sed) TRACE Abnormal None [facility] Epithelial cells LM.HPF (Urine sed) [#/Area] 0 TO 2 [facility] Interpretation and review of laboratory results Abnormal [facility] RBC LM.HPF (Urine sed) [#/Area] None [facility] WBC LM.HPF (Urine sed) [#/Area] None [facility] No Panel Informationon 07-07 Interpretation and review of laboratory results Abnormal [facility] UA w/Reflex Cultureon 2023 Bilirubin, SemiQt,Ur Negative Normal NEG [facility] Comment on above: Performed By: #### U AX, UMICAO ####[address] , [place] [id number] Lab Director: Murtaza Arceo MD Blood, Urine Negative Normal NEG [facility] Comment on above: Performed By: #### U AX, UMICAO ####[address] , [place] [address] Lab Director: Murtaza Arceo MD Clarity (U) Clear Normal CLEAR [facility] Comment on above: Performed By: #### U AX, UMICAO ####[address] , [place] [address] Lab Director: Murtaza Arceo MD Color (U) Yellow Normal YEL [facility] Comment on above: Performed By: #### U AX, UMICAO ####[address] [place] [address] Lab Director: Murtaza Arceo MD Glucose Ql (U) 3+ mg/dL Abnormal NEG [facility] Comment on above: Performed By: #### U AX, UMICAO ####[address] [place] [address] Lab Director: Murtaza Arceo MD Ketones Ql (U) Negative Normal NEG [facility] Comment on above: Performed By: #### U AX, UMICAO ####[address] [place] [address] Lab Director: Murtaza Arceo MD Leukocyte esterase Test strip Ql (U) Negative Normal NEG [facility] Comment on above: Performed By: #### U AX, UMICAO ####[address] , [place] [address] Lab Director: Murtaza Arceo MD Nitrite,Ur Negative Normal NEG [facility] Comment on above: Performed By: #### U AX, UMICAO ####[address] , [place] [id number] [facility] Director: Murtaza Arceo MD PH,Ur 6.0 Normal 5.0-9.0 [facility] Comment on above: Performed By: #### U AX, UMICAO ####[address] [place] [address] Lab Director: Murtaza Arceo MD Protein Ql (U) Negative Normal NEG [facility] Comment on above: Performed By: #### U AX, UMICAO ####[address] , [place] [id number] lab Director: Murtaza Arceo MD Spec. [place],Ur 1.020 Normal 1.010-1.020 [facility] Comment on above: Performed By: #### U AX, UMICAO ####[address] , [place] [address] Lab Director: Murtaza Arceo MD Urobilinogen,Ur Normal Normal 0.0-1.0 [facility] Comment on above: Performed By: #### U AX, UMICAO ####[address] , [place] [id number] Lab Director: Murtaza Arceo MD Urinalysis with Reflex to Cu ltureon 07-07-2024 Bilirubin Ql (U) Negative [facility]IVE [facility] Clarity (U) Clear Clear [facility] Color (U) Yellow Yellow [facility] Glucose Test strip (U) [Mass/Vol] 3+ Abnormal NEGATIVE mg/dL [facility] Hemoglobin Auto test strip Ql (U) Negative NEGATIVE [facility] Interpretation and review of laboratory results Abnormal [facility] Ketones (U) [Mass/Vol] Negative NEGAT SIMA mg/dL [facility] Leukocyte esterase Test strip Ql (U) Negative NEGATIVE [facility] Nitrite Ql (U) Negative NEGATIVE [facility] pH (U) 6.0 [pH] 5.0 - 9.0 [facility] Protein (U) [Mass/Vol] Negative NEGAT SIMA mg/dL [facility] Specific gravity (U) [Rel density] 1.020 1.010 - 1.020 [facility] Urobilinogen Qn (U) Normal 0.0 - 1. 0 EU/dL [facility] Urinalysis,Microon 4 Bacteria TRACE Abnormal NONE [facility] Comment on above: Performed By: #### U AX, UMICAO ####[facility] [place], [place] [id number] lab Director: Murtaza Arceo MD Epithelial cells LM Ql (Urine sed) 0 TO 2 Normal 0-25 [facility] Comment on above: Performed By: #### U AX, UMICAO ####[address] [place], [place] [id number] lab Director: Murtaza Arceo MD Urine RBC's None Normal 0-2 [facility] Comment on above: Performed By: #### U AX, UMICAO ####[address] [place] [address] lab Director: Murtaza Arceo MD Urine WBC's None Normal 0-5 [facility] Comment on above: Performed By: #### U AX, UMICAO ####[address] [place] [id number] lab Director: Murtaza Arceo MD ED Note-Physicianon 07-06-20 ED Note-Physician ED Note-Physician Basic Information Time Seen: Dwight ESCOBAR, Mouna Gomez 07/05/2024 17:49 Chief Complaint abdominal pain, nausea started noon today. hx gastroparesis. bm today but was strenuous. History of Present Illness Patient is a 28-year-old female with a history of pancreatitis, diabetes, gastroparesis, and smoking who presents to the ED with abdominal pain and nausea that started this afternoon. Patient describes the pain as being in her upper abdominal region and radiating downward. She describes it as a constant sharp pain. Patient notes nausea but denies any vomiting. She notes she had a bowel movement today but states it was hard in consistency. Patient notes prior to arrival her blood glucose was 250, which is typical for her. Patient denies any changes in urination or fevers. Review of Systems A 10 point review of systems is negative except as noted above. Medical and Surgical History: Reviewed and noted Social history: Lives at home Family History: Reviewed. Tobacco: current use Physical Exam Vitals & Measurements T: 36.7 ?C(Oral) HR: 91(Monitored) RR: 18 BP: 123/84 SpO2: 99% HT: 173 cm WT: 113.4 kg BMI: 37.89 General: The patient appears well and in no apparent distress. Patient is resting comfortably on cart. Skin: Warm, dry, no pallor noted. Head: Normocephalic, atraumatic Neck: No JVD Eye: PERRLA, EOMI ENT: Moist mucus membranes Cardiovascular: Regular rate normal peripheral perfusion Respiratory: No respiratory distress no accessory muscle use no obvious audible wheezing Chest Wall: no deformity Musculoskeletal: normal ROM, no deformity, no swelling GI: Soft no obvious distention. No rebound or rigidity. No guarding. No abdominal tenderness. Neurological: A&O moves all extremities equal strength and symmetry Psychiatric: Cooperative and appropriate Medical Decision Making Patient is a 28-year-old female with a history of pancreatitis, diabetes, gastroparesis, and smoking who presents to the ED with abdominal pain and nausea that started this afternoon. Patient is hemodynamically stable and afebrile. Abdominal exam is unremarkable without tenderness to palpation. Patient is given morphine and Zofran on arrival. She noted continued pain in which she was given a GI cocktail. A chart review was conducted showing the patient has seen numerous hospitals multiple times in the past month for similar symptoms, therefore further narcotics were avoided. Lab work is reviewed. Glucose is elevated at 273. Anion gap is within normal limits and urinalysis is negative for ketones. Lipase is a 91 which is improved from prior. Abdominal x-ray shows no acute osseous abnormalities. Patient was updated on results. She continued to have pain and nausea in which she was given Reglan, Bentyl and IV acetaminophen. On reevaluation she noted improvement in symptoms. She was able to tolerate liquids while in the ED. Patient is being prescribed metoclopramide for the gastroparesis. 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 She was advised return to ED with any new or worsening symptoms. Patient is agreeable with the plan and all questions were answered. Assessment/Plan Abdominal pain, acute (R10.9: Unspecified abdominal pain) Gastroparesis (K31.84: Gastroparesis) Nausea (R11.0: Nausea) Orders: acetaminophen, 975 mg = 3 tab(s), Tab, Oral, Once, Stop date 07/05/24 22:45:00 EDT, STAT, Start date 07/05/24 22:45:00 EDT, 07/05/24 22:45:00 EDT acetaminophen + Generic Diluent 100 mL, 1,000 mg = 100 mL, Soln-IV, IV Piggyback, Once, Stop date 07/05/24 21:03:00 EDT, STAT, Start date 07/05/24 21:03:00 EDT, 400 mL/hr, Infuse over 15 minute(s) Al hydroxide/Mg hydroxide/simethicone, 30 mL, Susp-Oral, Oral, Once, Stop date 07/05/24 19:06:00 EDT, STAT, Start date 07/05/24 19:06:00 EDT atropine/hyoscyamine/P B/scopolamine, 10 mL, Elixir, Oral, Once, Stop date 07/05/24 19:06:00 EDT, STAT, Start date 07/05/24 19:06:00 EDT dicyclomine, 20 mg = 2 mL, Injection, IntraMuscular, Once, Stop date 07/05/24 20:15:00 EDT, STAT, Start date 07/05/24 20:15:00 EDT, 07/05/24 20:15:00 EDT lidocaine topical, 200 mg, 10 mL, Soln-Oral, Oral, Once, Stop date 07/05/24 19:06:00 EDT, STAT, Start date 07/05/24 19:06:00 EDT metoclopramide, 10 mg = 1 tab(s), Oral, QID, PRN Pain, X 5 day(s), # 20 tab(s), Refills(s) 0, Pharmacy: [facility] [id number], 173, cm, 07/05/24 17:47:00 EDT, Height/Length Dosing, 113.4, kg, 07/05/24 17:47:00 EDT, Weight Dosing morphine, 4 mg = 1 mL, Injection, IV Push, Once, Stop date 07/05/24 18:05:00 EDT, STAT, Start date 07/05/24 18:05:00 EDT, 07/05/24 18:05:00 EDT ondansetron, 4 mg = 2 mL, Injection, IV Push, Once, Stop date 07/05/24 18:02:00 EDT, STAT, Start date 07/05/24 18:02:00 EDT, 07/05/24 18:02:00 EDT promethazine, 25 mg = 1 tab(s), Tab, Oral, Once, Stop date 07/05/24 22:45:00 EDT, STAT, Start date 07/05/24 22:45:00 EDT, 07/05/24 22:45:00 EDT Basic Metabolic Panel CBC w/ Auto Diff eGFR Extra Blue Tu (more content not included)... Normal [facility] Comment on above: Result Comment: Elec tronically Signed By: Mouna Quintanilla PA-C\.br\Date and Time Signed: 07/05/24 22:58 EDT\.br\Electronically Co-Signed By: Mouna Quintanilla PA-C\.br\Date and Time Co-Signed: 07/05/24 23:07 EDT\.br\Electronically Co-Signed By: Cameron Conklin DO\.br\Date and Time Co-Signed: 07/06/24 16:51 EDT XR Abdomen 1 Viewon 07-06-20 XR Abdomen 1 View Exam Date/Time: 07/05/2024 19:36 EDT Reason for Exam: Constipation Report IMPRESSION: NO ACUTE OR SIGNIFICANT INTRA-ABDOMINAL PROCESS IDENTIFIED, BY PLAIN RADIOGRAPHY. EXAM: XR Abdomen 1 View DATE: 07/05/2024 7:25 PM CLINICAL HISTORY: Constipation. COMPARISON: CT abdomen and pelvis 05/23/2024. TECHNIQUE: Three supine radiographs of the abdomen and pelvis were obtained. FINDINGS: There is a nonobstructive bowel gas pattern. Mild gas and stool are noted in the colon and rectum. There is no evidence of significant constipation, pneumoperitoneum, or pathologic calcifications identified. Ordering Provider: Mouna Quintanilla FINAL REPORT Dictated: 07/06/2024 12:04 pm Obdulio Stock MD Signed (Electronic Signature): 07/06/2024 12:04 pm Signed by: Obdulio Stock MD Transcribed by: VENKAT Technologist: DANETTE Technical Comments Radiation Dose: Ka,r in mGy = na DAP = na Normal [facility] BMPon 07-05-2024 Anion gap [Moles/Vol] 15 mmol/L Normal 6-16 [facility] Comment on above: Performed By: #### 2 [id number] #### [facility] [address] [place] [address] Calcium [Mass/Vol] 9.2 mg/dL Normal 8.9-11.1 [facility] Comment on above: Performed By: #### 2 [id number] #### [facility] [address] [place] [address] Chloride [Moles/Vol] 106 mmol/L Normal 101-111 [facility] Comment on above: Performed By: #### 2 [id number] #### [facility] [address] [place] [address] CO2 [Moles/Vol] 20 mmol/L Low 21-31 [facility] Comment on above: Performed By: #### 2 [id number] #### [facility] [address] [place] [address] Creatinine [Mass/Vol] 0.8 mg/dL Normal 0.5-1.3 [facility] Comment on above: Performed By: #### 2 [id number] #### [facility] [address] [place] [address] Glucose [Mass/Vol] 273 mg/dL High 55-199 [facility] Comment on above: Performed By: #### 2 [id number] #### [facility] [address] [place] [address] Potassium [Moles/Vol] 4.0 mmol/L Normal 3.5-5.3 [facility] Comment on above: Performed By: #### 2 [id number] #### [facility] [address] [place] [address] Sodium [Moles/Vol] 137 mmol/L Normal 135-145 [facility] Comment on above: Performed By: #### 2 [id number] #### [facility] [address] [place] [address] Urea nitrogen [Mass/Vol] 16 mg/dL Normal 5-21 [facility] Comment on above: Performed By: #### 2 [id number] #### [facility] [address] [place] [address] Urea nitrogen/Creatinine [Mass ratio] 20 No Units Normal 10-20 [facility] Comment on above: Performed By: #### 2 [id number] #### [facility] [address] [place] [address] CBC w/ Auto Diffon 4 Basophils/100 WBC (Bld) 0.8 % Normal 0.0-2.0 [facility] Comment on above: Performed By: #### 2 [id number] #### [facility] [address] [place] [address] Basophils/Leukocytes Auto (Bld) [Pure # fraction] 0.1 E9/L Normal 0.0-0.2 [facility] Comment on above: Performed By: #### 2 [id number] #### [facility] [address] [place] [address] Eosinophils (Bld) [#/Vol] 0.2 E9/L Normal 0.0-0.5 [facility] Comment on above: Performed By: #### 2 [id number] #### [facility] [address] [place] [address] Eosinophils/100 WBC (Bld) 1.3 % Normal 0.0-8.0 [facility] Comment on above: Performed By: #### 2 [id number] #### [facility] [address] [place] [address] Erythrocyte distribution width (RBC) [Ratio] 13.8 % Normal 10.9-14.2 [facility] Comment on above: Performed By: #### 2 [id number] #### [facility] [address] [place] [address] Hematocrit (Bld) [Volume fraction] 41.2 % Normal 34.0-46.0 [facility] Comment on above: Performed By: #### 2 [id number] #### [facility] [address] [place] [address] Hemoglobin (Bld) [Mass/Vol] 14.3 g/dL Normal 12.0-16.0 [facility] Comment on above: Performed By: #### 2 [id number] #### [facility] [address] [place] [address] Lymphocytes (Bld) [#/Vol] 3.4 E9/L Normal 1.0-4.0 [facility] Comment on above: Performed By: #### 2 [id number] #### [facility] [address] [place] [address] Lymphocytes/100 WBC (Bld) 29.4 % Normal 14.0-50.0 [facility] Comment on above: Performed By: #### 2 [id number] #### [facility] [address] [place] [address] MCH (RBC) [Entitic mass] 30.9 pg Normal 27.0-34.0 [facility] Comment on above: Performed By: #### 2 [id number] #### [facility] [address] [place] [address] MCHC (RBC) [Mass/Vol] 34.8 g/dL Normal 31.4-36.0 [facility] Comment on above: Performed By: #### 2 [id number] #### [facility] [address] [place] [address] MCV (RBC) [Entitic vol] 88.6 fL Normal 80.0-100.0 [facility] Comment on above: Performed By: #### 2 [id number] #### [facility] [address] [place] [address] Monocytes (Bld) [#/Vol] 0.5 E9/L Normal 0.2-1.0 [facility] Comment on above: Performed By: #### 2 [id number] #### [facility] [address] [place] [address] Neutrophils (Bld) [#/Vol] 7.4 E9/L Normal 2.0-7.5 [facility] Comment on above: Performed By: #### 2 [id number] #### [facility] [address] [place] [address] Neutrophils/100 WBC (Bld) 64.1 % Normal 36.0-75.0 [facility] Comment on above: Performed By: #### 2 [id number] #### [facility] [address] [place] [address] Platelet mean volume (Bld) [Entitic vol] 9.8 fL Normal 6.4-10.8 [facility] Comment on above: Performed By: #### 2 [id number] #### [facility] [address] [place] [address] Platelets (Bld) [#/Vol] 308.0 E9/L Normal 150.0-500.0 [facility] Comment on above: Performed By: #### 2 [id number] #### [facility] [address] [place] [address] RBC (Bld) [#/Vol] 4.7 E12/L Normal 4.3-5.9 [facility] Comment on above: Performed By: #### 2 [id number] #### [facility] [address] [place] [address] WBC corrected for nucl RBC Auto (Bld) [#/Vol] 11.5 E9/L High 4.0-11.0 [facility] Comment on above: Performed By: #### 2 [id number] #### [facility] [address] [place] [address] [place] [address] CHEMISTRYOrdered By: SYSTEM SYSTEM on 07-05-2024 Albumin [Mass/Vol] 4.2 g/dL Normal 3.3 - 5.0 gm/dL Remisol Chem Albumin/Globulin [Mass ratio] 1.4 {ratio} Normal 1.1 - 2.2 Remisol Chem ALP [Catalytic activity/Vol] 82 [iU]/d Normal 21 - 98 Int._Unit/L Remisol Chem ALT No additional P-5'-P [Catalytic activity/Vol] 26 [iU]/d Normal 6 - 46 Int._Unit/L Remisol Chem Anion gap [Moles/Vol] 15 mmol/L Normal 6 - 16 mEq/L [facility] Chem AST [Catalytic activity/Vol] 17 [iU]/d Normal 5 - 43 Int._Unit/L Remisol Chem Bilirubin [Mass/Vol] 0.3 mg/dL Normal 0.0 - 1 .1 mg/dL Remisol Chem Bilirubin.direct [Mass/Vol] 0.0 mg/dL Normal 0.0 - 0.4 mg/dL Remisol Chem Bilirubin.indirect [Mass or moles/Vol] 0.3 mg/dL Normal 0.1 - 0.9 mg/dL [facility] Chem Calcium [Mass/Vol] 9.2 mg/dL Normal 8.9 - 11. 1 mg/dL [facility] Chem Chloride [Moles/Vol] 106 mmol/L Normal 101 - 1 11 mmol/L [facility] Chem CO2 [Moles/Vol] 20 mmol/L Low 21 - 31 mmol/L [facility] Chem Creatinine [Mass/Vol] 0.8 mg/dL Normal 0.5 - 1.3 mg/dL Rem[facility] Chem eGFR 102 mL/min/1.73 m2 Normal >=59mL/mi n/ 1.73 m2 Rem[facility] Chem Globulin (S) [Mass/Vol] 3.1 g/dL Normal 1.4 - 4.0 gm/dL Rem[facility] Chem Glucose [Mass/Vol] 273 mg/dL High 55 - 199 mg/dL [facility] Chem Lipase [Catalytic activity/Vol] 91 U/L High 13 - 58 unit/L [facility] Chem Potassium [Moles/Vol] 4.0 mmol/L Normal 3.5 - 5.3 mmol/L Remisol Chem Protein [Mass/Vol] 7.3 g/dL Normal 6.0 - 7.8 gm/dL [facility] Chem Sodium [Moles/Vol] 137 mmol/L Normal 135 - 145 mmol/L Rem[facility] Chem Urea nitrogen [Mass/Vol] 16 mg/dL Normal 5 - 21 mg/dL Rem[facility] Chem Urea nitrogen/Creatinine [Mass ratio] 20 mg/mg Normal 10 - 20 Rem[facility] Chem ED Clinical Summaryon 2023 ED Clinical Summary ED Clinical Summary [place] [id number] ED Clinical Summary Person Information Name: GAEL RUBY [facility] Age: 28 Years : 1995 Sex: Female Language: Somali PCP: YOSSI GOLDEN MD Marital Status: Visit Id: Visit Reason: Nausea; Abdominal pain; GASTRO FLAIR UP Speciality: Acuity: 3 Enc Type: Emergency Med Service: Emergency Arrival: 07/05/2024 17:39:24 Discharge: 07/05/2024 23:13:13 LOS: 000 05:34 Checkin: 07/05/2024 17:39:24 Checkout: 07/05/2024 23:13:13 Dispo Type: Home (Routine DC) EVENTS: Event Name Event Status Request Date/Time Start Date/Time Complete Date/Time Arrive Complete 07/05/2024 17:39:24 07/05/2024 17:39:24 07/05/2024 17:39:24 Document Home Meds Request 07/05/2024 17:39:24 Triage Complete 07/05/2024 17:39:24 07/05/2024 17:47:55 07/05/2024 17:47:55 Bed Assign Complete 07/05/2024 17:41:03 07/05/2024 17:41:03 07/05/2024 17:41:03 Dr Exam Complete 07/05/2024 17:41:03 07/05/2024 17:49:40 07/05/2024 17:49:40 RN Exam Complete 07/05/2024 17:41:03 07/05/2024 18:05:43 07/05/2024 18:05:43 Registration Complete 07/05/2024 17:41:41 07/05/2024 17:41:41 07/05/2024 17:41:41 Reg Complete Request 07/05/2024 17:41:41 Reg Bed Request Complete 07/05/2024 17:41:41 07/05/2024 17:41:41 07/05/2024 17:41:41 Isolation Screening Request 07/05/2024 17:47:56 Registration Complete 07/05/2024 17:49:40 07/05/2024 19:51:33 07/05/2024 19:51:33 Dr Exam Complete 07/05/2024 17:52:08 07/05/2024 17:52:08 07/05/2024 17:52:08 Pending Labs Complete 07/05/2024 18:02:58 07/05/2024 19:19:30 Lab Complete 07/05/2024 18:02:58 07/05/2024 19:19:30 Meds Admin Complete 07/05/2024 18:02:58 07/05/2024 18:12:03 Meds Admin Complete 07/05/2024 18:05:28 07/05/2024 18:12:03 Pending Labs Complete 07/05/2024 18:38:58 07/05/2024 18:38:58 07/05/2024 19:19:30 Lab Complete 07/05/2024 18:38:58 07/05/2024 18:38:58 07/05/2024 19:19:30 Pending Labs Complete 07/05/2024 18:39:38 07/05/2024 18:39:38 07/05/2024 18:39:39 Meds Admin Complete 07/05/2024 19:06:53 07/05/2024 19:14:37 X-Ray Complete 07/05/2024 19:24:24 07/05/2024 19:25:56 07/05/2024 19:36:21 Wet Read Request 07/05/2024 19:36:21 Meds Admin Complete 07/05/2024 20:15:55 07/05/2024 20:30:39 Meds Admin Complete 07/05/2024 21:03:41 07/05/2024 21:44:17 Meds Admin Complete 07/05/2024 22:46:11 07/05/2024 23:07:41 Discharge Complete 07/05/2024 22:55:54 07/05/2024 23:13:20 07/05/2024 23:13:20 Transfer Complete 07/05/2024 23:13:20 07/05/2024 23:13:20 07/05/2024 23:13:20 ADDRESS: [address] [place] [id number] PHYS DOC NOTES: MEDICAL INFORMATION: Prescriptions Given: Medications to Continue Taking That Have Changed [facility] [id number], [address] [place], [place] [id number], [phone] START: metoclopramide (metoclopramide 10 mg Tab) 1 Tablets By Mouth 4 times a day as needed Pain for 5 Days. Refills: 0. Other Medications START: metoclopramide (Reglan 10 mg Tab) 1 Tablets By Mouth every 6 hours. Refills: 0. Medications to Continue with No Changes Other Medications albuterol (Albuterol (Eqv-ProAir HFA) 90 mcg/inh inhalation aerosol) 2 Puffs Inhalation every 4 hours as needed Wheezing. dulaglutide (Trulicity Pen 1.5 mg/0.5 mL subcutaneous solution) 1.5 Milligram Subcutaneous every week. glipiZIDE (glipiZIDE 10 mg Tab) 1 Tablets By Mouth 2 times a day. hydrOXYzine (hydrOXYzine hydrochloride 25 mg Tab) 1 Tablets By Mouth every 6 hours as needed as needed for anxiety. hyoscyamine (hyoscyamine 0.375 mg ER Tab) 1 Tablets By Mouth at bedtime. ibuprofen insulin glargine (Lantus 100 units/mL Injection-Insulin) 30 Units Subcutaneous once a day (at bedtime). ondansetron (Zofran 4 mg Tab) 1 Tablets By Mouth every 8 hours as needed Nausea/Vomiting. Refills: 6. pantoprazole (Pantoprazole [address] Tab) 1 Tablets By Mouth 2 times a day. Refills: 0. promethazine (Phenergan 12.5 mg Supp) 1 Suppositories By rectum every 4 hours as needed Nausea/Vomiting. If zofran is ineffective. promethazine (Phenergan 25 mg Supp) 1 Suppositories By rectum every 12 hours as needed Nausea/Vomiting. Refills: 6. promethazine (Phenergan 25 mg Supp) 1 Suppositories By rectum every 6 hours as needed Nausea/Vomiting. Refills: 0. sertraline (sertraline 100 mg Tab) 1 Tablets By Mouth every day. tizanidine (tiZANidine 4 mg Tab) 1 Tablets By Mouth 3 times a day. tizanidine (Zanaflex) By Mouth. PATIENT EDUCATION INFORMATION: Instructions: Abdominal Pain, Adult Follow up: With: Address: When: Aly Beverly [address] [place] [address], [facility] [address], [place] [phone] Business (1) In 3 days 07/08/2024 Comments: Call to schedule a follow-up appointment with the city weighmaster in the next 2 to 3 days. Use the metoclopramide as needed for gastroparesis symptoms. Return to ED with any new or worsening symptoms (more content not included)... Normal [facility] ED Patient Summaryon 024 ED Patient Summary ED Patient Summary [address] [address] Patient Discharge Instructions Person Information Name: GAEL RUBY Age: 28 Years Arrival Date: 07/05/2024 17:39:24 Discharge Diagnosis: Abdominal pain, acute; Gastroparesis; Nausea Primary Care Physician: YOSSI GOLDEN MD Provider Information Primary Provider: Cameron Conklin DO [employer] Processor:Mouna Quintanilla PA-C The exam and treatment you received in the Emergency Department were for an urgent problem and are not intended as complete care. It is important that you follow up with a doctor, nurse practitioner, or physician?s secretary administrative assistant for ongoing care. If your symptoms become worse or you do not improve as expected and you are unable to reach your usual health care provider, you should return to the Emergency Department. We are available 24 hours a day. GAEL RUBY Michelle has been given the following list of patient education materials, prescriptions and follow-up instructions: Follow-up Instructions: With: Address: When: Aly Guardado, [address], [address] [phone] Business (1) In 3 days 07/08/2024 Comments: Call to schedule a follow-up appointment with the city weighmaster in the next 2 to 3 days. Use the metoclopramide as needed for gastroparesis symptoms. Return to ED with any new or worsening symptoms. With: Address: When: YOSSI GOLDEN [address] [place] [phone] Business (1) In 3 days In the event that this physician does not participate in your insurance network, please consult with your insurance company to find a nearby participating provider. Patient Education Materials: Abdominal Pain, Adult A MESSAGE TO ALL PATIENTS REGARDING OPIOIDS PRESCRIPTION OPIOIDS: WHAT YOU NEED TO KNOW Prescription opioids can be used to help relieve [id number] pain and are often prescribed following a surgery or injury, or for certain health conditions. These medications can be an important part of the treatment but also come with serious risks. It is important to work with your healthcare provider to make sure you are getting the safest, most effective care. WHAT ARE THE RISKS AND SIDE EFFECTS OF OPIOID USE? Prescription opioids carry serious risks of addiction and overdose, especially with prolonged use. An opioid overdose, often marked by slowed breathing, can cause sudden . The use of prescription opioids can have a number of side effects as well, even when taken as directed: ? Tolerance?meaning you might need to take more of the medication for the same pain relief ? Physical dependence?meaning you have symptoms of withdrawal when a medication is stopped ? Increased sensitivity to pain ? Constipation ? Nausea, vomiting, and dry mouth ? Sleepiness and dizziness ? Confusion ? Depression ? Low levels of testosterone that can result in lower sex drive, energy, and strength ? Itching and sweating RISKS ARE GREATER WITH: ? History of drug misuse, substance use disorder, or overdose ? Mental health conditions (such as depression or anxiety) ? Sleep apnea ? Older age (65 years and older) ? Avoid alcohol while taking prescription opioids. Also, unless specifically advised by your health care provider, medications to avoid include: ? Benzodiazepines (such as Xanax or Valium) ? Muscle relaxants (such as Soma or Flexeril) ? Hypnotics (such as Ambien or Lunesta) ? Other prescription opioids KNOW YOUR OPTIONS Talk to your health care provider about ways to manage your pain that don?t involve prescription opioids. Some of these options may actually work better and have fewer risks and side effects. Options may include: ? Pain relievers such as acetaminophen, ibuprofen, and naproxen ? Some medication that are also used for depression or seizures ? Physical therapy and exercise ? Cognitive behavioral therapy, a psychological, goal-directed approach, in which patients learn how to modify physical, behavioral, and emotional triggers of pain and stress. IF YOU ARE PRESCRIBED OPIOIDS FOR PAIN: ? Never take opioids in greater amounts or more often than prescribed. ? Follow up with your primary health care provider. o Work together to create a plan on how to manage your pain. o Talk about ways to help manage your pain that don?t involve prescription opioids. o Talk about any and all concerns and side effects. ? Help prevent misuse and abuse o Never sell or share prescription opioids. o Never use another person?s prescription opioids. ? Store prescription opioids in a secure place and out of reach of others (this may include visitors, children, friends, and family). ? Safely dispose of unused prescription opioids: Find your community drug take-back program or your pharmacy mail-back program, or (more content not included)... Normal [facility] Extra Blueon 07-05-2024 Tube Collected Plasma Yes Invalid Interpretation Code [facility] Comment on above: Performed By: #### 1 [id number] #### [facility] [address] [place] [id number] HEMATOLOGYOrdered By: SYSTEM SYSTEM on 07-05-2024 Basophils/100 WBC (Bld) 0.8 % Normal 0.0 - 2.0 % Remisol Heme Basophils/Leukocytes Auto (Bld) [Pure # fraction] 0.1 E9/L Normal 0.0 - 0.2 E9/L Remisol Heme Eosinophils (Bld) [#/Vol] 0.2 E9/L Normal 0.0 - 0.5 E9/L Remisol Heme Eosinophils/100 WBC (Bld) 1.3 % Normal 0.0 - 8.0 % Remisol Heme Erythrocyte distribution width (RBC) [Ratio] 13.8 % Normal 10.9 - 14.2 % Remisol Heme Hematocrit (Bld) [Volume fraction] 41.2 % Normal 34.0 - 46.0 % Remisol Heme Hemoglobin (Bld) [Mass/Vol] 14.3 g/dL Normal 12.0 - 16.0 gm/dL Remisol Heme Lymphocytes (Bld) [#/Vol] 3.4 E9/L Normal 1.0 - 4.0 E9/L Remisol Heme Lymphocytes/100 WBC (Bld) 29.4 % Normal 14.0 - 50.0 % Remisol Heme MCH (RBC) [Entitic mass] 30.9 pg Normal 27.0 - 34.0 pg Remisol Heme MCHC (RBC) [Mass/Vol] 34.8 g/dL Normal 31.4 - 36.0 gm/dL Remisol Heme MCV (RBC) [Entitic vol] 88.6 fL Normal 80.0 - 100.0 fL Remisol Heme Monocytes (Bld) [#/Vol] 0.5 E9/L Normal 0.2 - 1.0 E9/L Remisol Heme Monocytes/100 WBC (Bld) 4.4 % Normal 4.0 - 14.0 % Remisol Heme Neutrophils (Bld) [#/Vol] 7.4 E9/L Normal 2.0 - 7.5 E9/L Remisol Heme Neutrophils/100 WBC (Bld) 64.1 % Normal 36.0 - 75.0 % Remisol Heme Platelet mean volume (Bld) [Entitic vol] 9.8 fL Normal 6.4 - 10.8 fL Rem[facility] Heme Platelets (Bld) [#/Vol] 308.0 E9/L Normal 150.0 - 500.0 E9/L Remisol Heme RBC (Bld) [#/Vol] 4.7 E12/L Normal 4.3 - 5.9 E12/L [facility] Heme WBC corrected for nucl RBC Auto (Bld) [#/Vol] 11.5 E9/L High 4.0 - 11.0 E9/L Remisol Heme Hep Func Panelon 07-05-2024 Albumin [Mass/Vol] 4.2 g/dL Normal 3.3-5.0 [facility] Comment on above: Performed By: #### 2 [id number] #### [facility] [address] [place] [address] Albumin/Globulin (S) [Mass conc ratio] 1.4 Normal 1.1-2.2 [facility] Comment on above: Performed By: #### 2 [id number] #### [facility] [address] [place] [address] ALP [Catalytic activity/Vol] 82 Int._Unit/L Normal 21-98 [facility] Comment on above: Performed By: #### 2 [id number] #### [facility] [address] [place] [address] ALT No additional P-5'-P [Catalytic activity/Vol] 26 Int._Unit/L Normal 6-46 [facility] Comment on above: Performed By: #### 2 [id number] #### [facility] [address] [place] [address] AST [Catalytic activity/Vol] 17 Int._Unit/L Normal 5-43 [facility] Comment on above: Performed By: #### 2 [id number] #### [facility] [address] [place] [address] Bilirubin [Mass/Vol] 0.3 mg/dL Normal 0.0-1.1 [facility] Comment on above: Performed By: #### 2 [id number] #### [facility] [address] [place] [address] Bilirubin.direct [Mass/Vol] 0.0 mg/dL Normal 0.0-0.4 [facility] Comment on above: Performed By: #### 2 [id number] #### [facility] [address] [place] [address] Bilirubin.indirect [Mass or moles/Vol] 0.3 mg/dL Normal 0.1-0.9 [facility] Comment on above: Performed By: #### 2 [id number] #### [facility] [address] [place] [address] Globulin (S) [Mass/Vol] 3.1 g/dL Normal 1.4-4.0 [facility] Comment on above: Performed By: #### 2 [id number] #### [facility] [address] [place] [address] Protein [Mass/Vol] 7.3 g/dL Normal 6.0-7.8 [facility] Comment on above: Performed By: #### 2 [id number] #### [facility] [address] [place] [address] Lipase Levelon 07-05-2024 Lipase [Catalytic activity/Vol] 91 U/L High [facility] Comment on above: Performed By: #### 2 [id number] #### [facility] [address] [place] [address] UA with Cult Rflxon 07-05-20 Bilirubin Ql (U) Negative Normal Negative [facility] Comment on above: Performed By: #### 4 [id number] #### [facility] [address] [place] [address] Clarity (U) Clear Normal Clear [facility] Comment on above: Performed By: #### 4 [id number] #### [facility] [address] [place] [address] Color (U) Colorless Abnormal Yellow [facility] Comment on above: Result Comment: Micr oscopic readings are only performed on those samples that meet specific criteria set forth by [facility]. Performed By: #### 4 [id number] #### [facility] [address] [place] [address] Glucose Ql (U) 4+ mg/dL Abnormal Negative [facility] Comment on above: Performed By: #### 4 [id number] #### [facility] [address] [place] [address] Hemoglobin Auto test strip (U) [Mass/Vol] Negative Normal Negative [facility] Comment on above: Performed By: #### 4 [id number] #### [facility] [address] [place] [address] Ketones Auto test strip Ql (U) Negative Normal Negative [facility] Comment on above: Performed By: #### 4 [id number] #### [facility] [address] [place] [address] Leukocyte esterase Auto test strip Ql (U) Negative Normal Negative [facility] Comment on above: Performed By: #### 4 [id number] #### [facility] [address] [place] [address] Nitrite Auto test strip Ql (U) Negative Normal Negative [facility] Comment on above: Performed By: #### 4 [id number] #### [facility] [address] [place] [address] pH (U) 5.5 [pH] Invalid Interpretation Code 5.0-9.0 [facility] Comment on above: Performed By: #### 4 [id number] #### [facility] [address] [place] [address] Protein Ql (U) Negative Normal Negative [facility] Comment on above: Performed By: #### 4 [id number] #### [facility] [address] [place] [address] Specific gravity (U) [Rel density] 1.041 Invalid Interpretation Code 1.005-1.030 [facility] Comment on above: Performed By: #### 4 [id number] #### [facility] [address] [place] [address] Urobilinogen (U) [Mass/Vol] Negative Normal Negative [facility] Comment on above: Performed By: #### 4 [id number] #### [facility] [address] [place] [address] Type of Urine collection method Clean Catch Normal [facility] Comment on above: Performed By: #### 4 [id number] #### [facility] [address] [place] [address] URINALYSISOrdered By: SYSTEM SYSTEM on 07-05-2024 Bilirubin Ql (U) Negative Normal Negativemg/ dL [facility] UA Auto SS Clarity (U) Clear (07/05/24 6:35 PM) Normal Clear [facility] UA Auto SS Color (U) Colorless 1 *ABN* (07/05/24 6:35 PM) Invalid Interpretation Code Yellow [facility] UA Auto SS Comment on above: Interpretive Data: M icroscopic readings are only performed on those samples that meet specific criteria set forth by [facility]. Glucose Ql (U) 4+ mg/dL Invalid Interpretation Code Negativemg/ dL [facility] UA Auto SS Hemoglobin Auto test strip (U) [Mass/Vol] Negative Normal Negativemg/ dL [facility] UA Auto SS Ketones Auto test strip Ql (U) Negative Normal Negativemg/ dL [facility] UA Auto SS Leukocyte esterase Auto test strip Ql (U) Negative Normal NegativeLeu /uL [facility] UA Auto SS Nitrite Auto test strip Ql (U) Negative Normal Negativemg/ dL [facility] UA Auto SS pH (U) 5.5 *NA* (07/05/24 6:35 PM) Invalid Interpretation Code 5.0 - 9.0 [facility] UA Auto SS Protein Ql (U) Negative Normal Negativemg/ dL [facility] UA Auto SS Specific gravity (U) [Rel density] 1.041 *NA* (07/05/24 6:35 PM) Invalid Interpretation Code 1.005 - 1.030 [facility] UA Auto SS Urobilinogen (U) [Mass/Vol] Negative Normal Negativemg/ dL [facility] UA Auto SS URINALYSISOrdered By: Mouna Quintanilla on 07-05-2024 UA Spec Desc Clean Catch (07/05/24 6:35 PM) Normal [facility] UA Auto SS eGFRon 07-05-2024 eGFR 102 mL/min/1.73 m2 Normal >=59 [facility] Comment on above: Performed By: #### 1 [id number] #### [facility] [address] [place] [address] Diabetic Office/Clinic Noteo n 06-23-2024 Diabetic Office/Clinic Note Chief Complaint Type 2 diabetes History of Present Illness Gael Ruby is a 28 Years year old Female, type 2 diabetes diagnosed 2019 presents to office for initial encounter to establish care PCP office Dr. Dedra Golden. She was noted failing glucose tolerance test in 2014 with her first which resulted in miscarriage. Diagnosed gestational diabetes for 3 pregnancies in 2015, 2017 (treated with metformin both pregnancies) and 2019 during which she required both basal and bolus insulin. After that she was finally diagnosed with diabetes officially treated with metformin 2022 2021, stopped due to severity of ongoing diarrhea. In 2021 transitioned to weekly Trulicity, nightly Lantus with 40 mg glipizide (split twice daily dosing). Since starting the Trulicity in 2021 she resumed frequent smoking marijuana incidentally numerous episodes of severe abdominal pain nausea vomiting through March 2024 prompting ER visit followed by PCP office visit and outpatient workup including gastric emptying study which was positive for severe delay in gastric emptying with only 12% passages 60 minutes, 14% at 120 minutes and 37% to 40 minutes. She was treated with Reglan and given the diagnosis of diabetic gastroparesis and instructed to stop Trulicity. She has had a hysterectomy but prior to this would have frequent minimum twice yearly urinary tract infections, now suffers from bladder pain syndrome, noting constant dysuria. Positive family history of diabetes in Maternal grandmother, paternal grandmother and grandfather. Since her April 21, 2024 A1c 9.8% and gastroparesis symptoms she has made significant dietary changes including small frequent portions, overall reduction in portion size, reducing fiber and fats and lowering regular soda intake. She was previously drinking 6 cans a day she is now down to just 1 regular soda per day. For breakfast she usually eats toast or crackers with peanut butter, lunch is a salad, dinner is a protein with a carb and vegetable. She will snack throughout the day on diabetic protein shakes, tuna or chicken salad with crackers, cheese with meat sticks or nuts and fruit. She tries to stay very active following her step counts during the day as well. Current DM regimen: Breakfast: 2 tabs glipizide 10 mg Lunch: Dinner: Bedtime Lantus 30u + 2 tabs glipizide 10 mg Home Glucose Testing: Dexcom . Checks more than 4 times daily.. Glucose management indicator 7.2%, average glucose 163, 69% time in range, 1% hypoglycemia, 24% high range 181?250, 6% very high over 250 Issues obtaining medications: No DM Med intolerances/contraind ications: Metformin associated GI intolerance, diabetic gastroparesis symptoms while on Trulicity Diet: Carb restriction, portion control Exercise: Near daily exercise, >5 days, minimum 30 min, _ Retinopathy: No, Last dilated eye exam: due Diabetic kidney disease: No Neuropathy: No Podiatry: No Stroke history: No Diagnosed Autonomic disease: gastroparesis Recent labs: A1c %: 7.0 (06/23/24) 9.8 (04/21/24) Wgt (kg): 111 (06/23/24) 112 (04/29/24) BMI: 37.0 (06/23/24) 37.7 (04/29/24) TSH: CRE: 0.94 (05/15/24) GFR: >60 (05/15/24) uACR: AST: 102 (05/15/24) ALT: 83 (05/15/24) Trigs: Chol: HDL: LDL: Hgb: 15.1 (05/15/24) Review of Systems Constitutional: No fevers, polydipsia Respiratory: No shortness of breath, cough CV: No Chest pain, palpitations GI: No nausea, abdominal pain, diarrhea : No dysuria, yeast, polyuria Physical Exam Vitals & Measurements T: 36.9 ?C (Temporal Artery) HR: 98 (Peripheral) BP: 120/80 SpO2: 98 HT: 173 cm WT: 111.0 kg WT: 111.0 kg (Dosing) BMI: 37.09 General: Conversant, not acutely toxic appearing Psych: Appropriate mood and affect HEENT: No sclera or conjunctival injection or drainage Lungs: Respirations nonlabored effort MS: symmetric extremity movement, ambulatory with steady gait Skin: no visibly noted rashes/lesions Neuro: No obvious acute focal neuro deficits, clear speech Additional Vitals No qualifying data available. Assessment/Plan Type 2 Diabetes with gastroparesis Chronic comorbidities Obesity BMI >30-39.9 kg/m2 Diabetes gastroparesis Chronic marijuana use PCOS Asthma PLAN: New patient review of diabetes including pathophys, lifestyle modifications & meds to achieve blood sugar targets. Reviewed health maintenance & treatment goals to reduce risk of new/advancing diabetes complications. Discussed personalized treatment plan. - Established CGM use with noted benefit, instructed to check BS minimum 4 times daily using as guide to improve time in range with diet & exercise. _ -Meds: A1c 7.0% recommend Lower glipizide dose to max daily dose 20 mg daily, start Jardiance 10 mg (after discussion of risk/benefits/potentia l adverse effects), lower Lantus to 25 units goal of reducing Lantus further for med simplification and weight management goals. Breakfast: Jardiance 10mg + glipizide 10 mg Lunch: Dinner (more content not included)... Normal [facility] Diabetic Office/Clinic Note [facility] [address] [place], [address] Gael Ruby Birthdate: 1995 CGM DEVICE: Dexcom Date Range of Recording: May 25, 2024 through June 23, 2024 Date of Printout: 06/23/2024 Analysis and Interpretation of Data: Patient utilizing CGM to check blood sugar readings several times per day over the last 30 days. Glucose management indicator 7.2%, average glucose 163, 69% time in range, 1% hypoglycemia, 24% high range 181?250, 6% very high over 250 Encouraged patient to check blood sugar readings several times per day with CGM, using readings to guide diet, exercise and medication dosing. Medications were adjusted off CGM interpretation as appropriate. Electronically signed by Merrill Smalls 06/23/24 15:18 EDT [facility] Provider Letteron 06-23-2024 Provider Letter Yossi Golden MD [address] [place] [address] Re: Gael Ruby Date of Visit: 06/23/2024 Dear Yossi Golden MD, Let me know if you have any questions or concerns. Sincerely, DELLA Taylor Providers: The following document(s) were included in the letter: June 23, 2024 15:19:00 EDT - (06/23/2024) Office Visit Note Normal [facility] BMPon 06-20-2024 Anion gap [Moles/Vol] 14 mmol/L Normal 6-16 [facility] Comment on above: Performed By: #### 2 [id number] #### [facility] [address] [place] [address] Calcium [Mass/Vol] 9.0 mg/dL Normal 8.9-11.1 [facility] Comment on above: Performed By: #### 2 [id number] #### [facility] [address] [place] [address] Chloride [Moles/Vol] 104 mmol/L Normal 101-111 [facility] Comment on above: Performed By: #### 2 [id number] #### [facility] [address] [place] [address] CO2 [Moles/Vol] 22 mmol/L Normal 21-31 [facility] Comment on above: Performed By: #### 2 [id number] #### [facility] [address] [place] [address] Creatinine [Mass/Vol] 0.8 mg/dL Normal 0.5-1.3 [facility] Comment on above: Performed By: #### 2 [id number] #### [facility] [address] [place] [address] Glucose [Mass/Vol] 340 mg/dL High 55-199 [facility] Comment on above: Performed By: #### 2 [id number] #### [facility] [address] [place] [address] Potassium [Moles/Vol] 4.1 mmol/L Normal 3.5-5.3 [facility] Comment on above: Performed By: #### 2 [id number] #### [facility] [address] [place] [address] Sodium [Moles/Vol] 136 mmol/L Normal 135-145 [facility] Comment on above: Performed By: #### 2 [id number] #### [facility] [address] [place] [address] Urea nitrogen [Mass/Vol] 12 mg/dL Normal 5-21 [facility] Comment on above: Performed By: #### 2 [id number] #### [facility] [address] [place] [address] Urea nitrogen/Creatinine [Mass ratio] 15 No Units Normal 10-20 [facility] Comment on above: Performed By: #### 2 [id number] #### [facility] [address] [place] [address] CBC w/ Auto Diffon 4 Basophils/100 WBC (Bld) 1.0 % Normal 0.0-2.0 [facility] Comment on above: Performed By: #### 2 [id number] #### [facility] [address] [place] [address] Basophils/Leukocytes Auto (Bld) [Pure # fraction] 0.1 E9/L Normal 0.0-0.2 [facility] Comment on above: Performed By: #### 2 [id number] #### [facility] [address] [place] [address] Eosinophils (Bld) [#/Vol] 0.3 E9/L Normal 0.0-0.5 [facility] Comment on above: Performed By: #### 2 [id number] #### [facility] [address] [place] [address] Eosinophils/100 WBC (Bld) 2.7 % Normal 0.0-8.0 [facility] Comment on above: Performed By: #### 2 [id number] #### [facility] [address] [place] [address] Erythrocyte distribution width (RBC) [Ratio] 13.5 % Normal 10.9-14.2 [facility] Comment on above: Performed By: #### 2 [id number] #### [facility] [address] [place] [address] Hematocrit (Bld) [Volume fraction] 39.7 % Normal 34.0-46.0 [facility] Comment on above: Performed By: #### 2 [id number] #### [facility] [address] [place] [address] Hemoglobin (Bld) [Mass/Vol] 13.8 g/dL Normal 12.0-16.0 [facility] Comment on above: Performed By: #### 2 [id number] #### [facility] [address] [place] [address] Lymphocytes (Bld) [#/Vol] 3.1 E9/L Normal 1.0-4.0 [facility] Comment on above: Performed By: #### 2 [id number] #### [facility] [address] [place] [address] Lymphocytes/100 WBC (Bld) 29.9 % Normal 14.0-50.0 [facility] Comment on above: Performed By: #### 2 [id number] #### [facility] [address] [place] [address] MCH (RBC) [Entitic mass] 31.0 pg Normal 27.0-34.0 [facility] Comment on above: Performed By: #### 2 [id number] #### [facility] [address] [place] [address] MCHC (RBC) [Mass/Vol] 34.8 g/dL Normal 31.4-36.0 [facility] Comment on above: Performed By: #### 2 [id number] #### [facility] [address] [place] [address] MCV (RBC) [Entitic vol] 89.1 fL Normal 80.0-100.0 [facility] Comment on above: Performed By: #### 2 [id number] #### [facility] [address] [place] [address] Monocytes (Bld) [#/Vol] 0.4 E9/L Normal 0.2-1.0 [facility] Comment on above: Performed By: #### 2 [id number] #### [facility] [address] [place] [address] Neutrophils (Bld) [#/Vol] 6.4 E9/L Normal 2.0-7.5 [facility] Comment on above: Performed By: #### 2 [id number] #### [facility] [address] [place] [address] Neutrophils/100 WBC (Bld) 62.2 % Normal 36.0-75.0 [facility] Comment on above: Performed By: #### 2 [id number] #### [facility] [address] [place] [address] Platelet mean volume (Bld) [Entitic vol] 9.1 fL Normal 6.4-10.8 [facility] Comment on above: Performed By: #### 2 [id number] #### [facility] [address] [place] [address] Platelets (Bld) [#/Vol] 286.0 E9/L Normal 150.0-500.0 [facility] Comment on above: Performed By: #### 2 [id number] #### [facility] [address] [place] [address] RBC (Bld) [#/Vol] 4.5 E12/L Normal 4.3-5.9 [facility] Comment on above: Performed By: #### 2 [id number] #### [facility] [address] [place] [address] WBC corrected for nucl RBC Auto (Bld) [#/Vol] 10.3 E9/L Normal 4.0-11.0 [facility] Comment on above: Performed By: #### 2 [id number] #### [facility] [address] [place] [address] CHEMISTRYOrdered By: Lab ROP User on 06-20-2024 Glucose [Mass/Vol] 149 mg/dL High 55 - 99 mg/dL [facility] POC Subsection Comment on above: Result Comment: Hayden us RN/ POC Device SN [id number] Invalid Interpretation Code [facility] POC Subsection POC User ID [id number] 1 Invalid Interpretation Code [facility] POC Subsection POC Username SANAZ MCMAHON Invalid Interpretation Code [facility] POC Subsection CHEMISTRYOrdered By: SYSTEM SYSTEM on 06-20-2024 Albumin [Mass/Vol] 4.1 g/dL Normal 3.3 - 5.0 gm/dL [facility] Albumin/Globulin [Mass ratio] 1.4 {ratio} Normal 1.1 - 2.2 [facility] ALP [Catalytic activity/Vol] 74 [iU]/d Normal 21 - 98 Int._Unit/L [facility] ALT No additional P-5'-P [Catalytic activity/Vol] 46 [iU]/d Normal 6 - 46 Int._Unit/L [facility] Anion gap [Moles/Vol] 14 mmol/L Normal 6 - 16 mEq/L [facility] AST [Catalytic activity/Vol] 47 [iU]/d High 5 - 43 Int._Unit/L [facility] Bilirubin [Mass/Vol] 0.5 mg/dL Normal 0.0 - 1 .1 mg/dL [facility] Bilirubin.direct [Mass/Vol] 0.0 mg/dL Normal 0.0 - 0.4 mg/dL [facility] Bilirubin.indirect [Mass or moles/Vol] 0.5 mg/dL Normal 0.1 - 0.9 mg/dL [facility] Calcium [Mass/Vol] 9.0 mg/dL Normal 8.9 - 11. 1 mg/dL [facility] Chloride [Moles/Vol] 104 mmol/L Normal 101 - 1 11 mmol/L [facility] CO2 [Moles/Vol] 22 mmol/L Normal 21 - 31 mmol/L [facility] Creatinine [Mass/Vol] 0.8 mg/dL Normal 0.5 - 1.3 mg/dL [facility] eGFR 102 mL/min/1.73 m2 Normal >=59mL/mi n/ 1.73 m2 [facility] Globulin (S) [Mass/Vol] 3.0 g/dL Normal 1.4 - 4.0 gm/dL [facility] Glucose [Mass/Vol] 340 mg/dL High 55 - 199 mg/dL [facility] Lipase [Catalytic activity/Vol] 100 U/L High 13 - 58 unit/L [facility] Potassium [Moles/Vol] 4.1 mmol/L Normal 3.5 - 5.3 mmol/L [facility] Protein [Mass/Vol] 7.1 g/dL Normal 6.0 - 7.8 gm/dL [facility] Sodium [Moles/Vol] 136 mmol/L Normal 135 - 145 mmol/L [facility] Urea nitrogen [Mass/Vol] 12 mg/dL Normal 5 - 21 mg/dL [facility] Urea nitrogen/Creatinine [Mass ratio] 15 mg/mg Normal 10 - 20 [facility] Capillary Glucose POCon 05-25 Glucose [Mass/Vol] 149 mg/dL High 55-99 [facility] Comment on above: Result Comment: Hayden us RN/ Performed By: #### 2 [id number] #### [facility] [address] [place] [id number] ED Clinical Summaryon 2023 ED Clinical Summary ED Clinical Summary [address] [address] ED Clinical Summary Person Information Name: GAEL RUBY [facility] Age: 28 Years : 1995 Sex: Female Language: Somali PCP: YOSSI GOLDEN MD Marital Status: MRN: Visit Id: Visit Reason: Nausea; Abdominal pain; AB PAIN Speciality: Acuity: 3 Enc Type: Emergency Med Service: Emergency Arrival: 06/20/2024 18:41:42 Discharge: 06/20/2024 23:48:11 LOS: 000 05:07 Checkin: 06/20/2024 18:41:42 Checkout: 06/20/2024 23:48:11 Dispo Type: Home (Routine DC) EVENTS: Event Name Event Status Request Date/Time Start Date/Time Complete Date/Time Arrive Complete 06/20/2024 18:41:42 06/20/2024 18:41:42 06/20/2024 18:41:42 Document Home Meds Request 06/20/2024 18:41:42 Triage Complete 06/20/2024 18:41:42 06/20/2024 18:54:35 06/20/2024 18:54:35 Registration Complete 06/20/2024 18:45:49 06/20/2024 18:45:49 06/20/2024 18:45:49 Reg Complete Request 06/20/2024 18:45:49 Reg Bed Request Complete 06/20/2024 18:45:49 06/20/2024 18:45:49 06/20/2024 18:45:49 Bed Assign Complete 06/20/2024 18:48:45 06/20/2024 18:48:45 06/20/2024 18:48:45 Dr Exam Complete 06/20/2024 18:48:45 06/20/2024 18:55:24 06/20/2024 18:55:24 RN Exam Complete 06/20/2024 18:48:45 06/20/2024 20:51:12 06/20/2024 20:51:12 Isolation Screening Request 06/20/2024 18:54:36 30 Day Return Request 06/20/2024 18:54:36 Registration Request 06/20/2024 18:55:24 Pending Labs Complete 06/20/2024 18:56:26 06/20/2024 20:35:43 Lab Complete 06/20/2024 18:56:26 06/20/2024 20:35:43 Urine Collect Complete 06/20/2024 18:56:26 06/20/2024 20:35:43 Meds Admin Complete 06/20/2024 18:57:45 06/20/2024 20:27:31 Pending Labs Complete 06/20/2024 18:57:45 06/20/2024 20:45:12 Lab Complete 06/20/2024 18:57:45 06/20/2024 19:39:04 Patient Care Request 06/20/2024 18:57:45 Pending Labs Complete 06/20/2024 19:16:04 06/20/2024 19:16:04 06/20/2024 19:39:04 Lab Complete 06/20/2024 19:16:04 06/20/2024 19:16:04 06/20/2024 19:39:04 Meds Admin Complete 06/20/2024 19:23:20 06/20/2024 20:27:32 Pending Labs Complete 06/20/2024 19:25:56 06/20/2024 19:25:56 06/20/2024 19:25:56 Meds Admin Complete 06/20/2024 19:43:59 06/20/2024 21:33:23 Meds Admin Complete 06/20/2024 20:45:39 06/20/2024 21:33:24 Pending Labs Complete 06/20/2024 22:34:25 06/20/2024 22:34:25 06/20/2024 22:34:25 Meds Admin Complete 06/20/2024 23:00:08 06/20/2024 23:22:58 Discharge Complete 06/20/2024 23:00:51 06/20/2024 23:48:19 06/20/2024 23:48:19 Transfer Complete 06/20/2024 23:48:19 06/20/2024 23:48:19 06/20/2024 23:48:19 ADDRESS: [address] [place] [id number] PHYS DOC NOTES: MEDICAL INFORMATION: Prescriptions Given: Medications to Continue with No Changes Other Medications albuterol (Albuterol (Eqv-ProAir HFA) 90 mcg/inh inhalation aerosol) 2 Puffs Inhalation every 4 hours as needed Wheezing. dulaglutide (Trulicity Pen 1.5 mg/0.5 mL subcutaneous solution) 1.5 Milligram Subcutaneous every week. glipiZIDE (glipiZIDE 10 mg Tab) 1 Tablets By Mouth 2 times a day. hydrOXYzine (hydrOXYzine hydrochloride 25 mg Tab) 1 Tablets By Mouth every 6 hours as needed as needed for anxiety. hyoscyamine (hyoscyamine 0.375 mg ER Tab) 1 Tablets By Mouth at bedtime. ibuprofen insulin glargine (Lantus 100 units/mL Injection-Insulin) 30 Units Subcutaneous once a day (at bedtime). metoclopramide (Reglan 10 mg Tab) 1 Tablets By Mouth every 6 hours. Refills: 0. nicotine (nicotine 21 mg-14 mg-7 mg transdermal film, extended release) 1 Patches Transdermal at noon for 28 Days. Refills: 0. ondansetron (Zofran 4 mg Tab) 1 Tablets By Mouth every 8 hours as needed Nausea/Vomiting. Refills: 6. pantoprazole (Pantoprazole [address] Tab) 1 Tablets By Mouth 2 times a day. Refills: 0. promethazine (Phenergan 12.5 mg Supp) 1 Suppositories By rectum every 4 hours as needed Nausea/Vomiting. If zofran is ineffective. promethazine (Phenergan 25 mg Supp) 1 Suppositories By rectum every 12 hours as needed Nausea/Vomiting. Refills: 6. promethazine (Phenergan 25 mg Supp) 1 Suppositories By rectum every 6 hours as needed Nausea/Vomiting. Refills: 0. sertraline (sertraline 100 mg Tab) 1 Tablets By Mouth every day. tizanidine (tiZANidine 4 mg Tab) 1 Tablets By Mouth 3 times a day. tizanidine (Zanaflex) By Mouth. PATIENT EDUCATION INFORMATION: Instructions: Gastroparesis Follow up: With: Address: When: YOSSI GOLDEN [address] [place], [place] [id number] Business (1) In 3 days DIAGNOSIS: Epigastric abdominal pain; Gastroparesis Normal [facility] ED Note-Physicianon 06-20-20 ED Note-Physician ED Note-Physician Basic Information Time Seen: Carrie Tonny ROSADanni 06/20/2024 18:55 Chief Complaint Pt states she has gastroparesis. Pt states her abdominal pain is worse than normal. History of Present Illness HPI: Patient is a 28-year-old female with past medical history of diabetes, depression, factor V Leiden, anxiety, GERD, hiatal hernia, gastroparesis who presents to the ED for abdominal discomfort nausea and vomiting. Patient states that since yesterday she has had a flareup of what she feels like is her gastroparesis. She has had nausea and vomiting as well as epigastric discomfort with this. She denies any fever or chills. Denies any change in bowel movements or urinary symptoms. She took Zofran at home which helped for short time but the discomfort is still there. ROS: Pertinent review of systems conducted and is negative except as noted above. Physical exam: General: nontoxic appearing and in no distress HEENT: Mucous membranes moist Neuro: awake and alert Neck: supple, trachea midline Card: Heart regular rate and rhythm no murmur Resp: Lungs clear to auscultation no wheeze or rhonchi Abd: Soft and nondistended. Epigastric tenderness without rebound or guarding. Ext: No gross deformity or edema Physical Exam Vitals & Measurements T: 36.6 ?C(Oral) HR: 92(Peripheral) RR: 17 BP: 113/75 SpO2: 98% HT: 173 cm WT: 115.4 kg BMI: 38.56 Medical Decision Making MEDICAL DECISION MAKING Number and Complexity of Problems Differential Diagnosis: [] [facility] Data External documents reviewed: N/A My EKG interpretation: Noted in chart if applicable My CT interpretation: N/A My X-ray interpretation: Noted in chart if applicable My Ultrasound interpretation: N/A Decision rules/scores evaluated: N/A Discussed with: N/A Treatment and Disposition ED Course: Patient is nontoxic-appearing distress. Her tenderness is focal to the upper abdomen. Will give her IV fluids as well as pain and nausea medication. Blood work, urine will be obtained. Blood work shows a elevated glucose but no signs of DKA. She does also have an elevated lipase but this appears chronic reviewing her previous labs. No signs of UTI. After fluids her sugar has improved and her pain as well as her nausea vomiting have improved. She is able to tolerate oral liquids. We discussed the plan of discharge with close follow-up with primary care physician. Shared decision making: As above Code status: N/A Assessment/Plan Epigastric abdominal pain (R10.13: Epigastric pain) Gastroparesis (K31.84: Gastroparesis) Orders: Al hydroxide/Mg hydroxide/simethicone, 30 mL, Susp-Oral, Oral, Once, Stop date 06/20/24 19:23:00 EDT, STAT, Start date 06/20/24 19:23:00 EDT diphenhydrAMINE, 25 mg = 0.5 mL, Injection, IV Push, Once, Stop date 06/20/24 22:59:00 EDT, STAT, Start date 06/20/24 22:59:00 EDT, 06/20/24 22:59:00 EDT famotidine, 20 mg = 2 mL, Soln-IV, IV Push, Once, Stop date 06/20/24 20:45:00 EDT, STAT, Start date 06/20/24 20:45:00 EDT, 06/20/24 20:45:00 EDT lidocaine topical, 200 mg, 10 mL, Soln-Oral, Oral, Once, Stop date 06/20/24 19:23:00 EDT, STAT, Start date 06/20/24 19:23:00 EDT metoclopramide, 10 mg = 2 mL, Injection, IV Push, Once, Stop date 06/20/24 22:59:00 EDT, STAT, Start date 06/20/24 22:59:00 EDT, 06/20/24 22:59:00 EDT morphine, 2 mg = 1 mL, Injection, IV Push, Once, Stop date 06/20/24 22:59:00 EDT, STAT, Start date 06/20/24 22:59:00 EDT, 06/20/24 22:59:00 EDT morphine, 2 mg = 1 mL, Injection, IV Push, Once, Stop date 06/20/24 20:45:00 EDT, STAT, Start date 06/20/24 20:45:00 EDT, 06/20/24 20:45:00 EDT promethazine 12.5 mg + Sodium Chloride 0.9% intravenous solution 50 mL, Injection, IV Piggyback, Once, Stop date 06/20/24 19:23:00 EDT, STAT, Start date 06/20/24 19:23:00 EDT, 151.5 mL/hr, Infuse over 20 minute(s) Sodium Chloride 0.9% intravenous solution, 1,000 mL, Soln-IV, IV, Once, Stop date 06/20/24 19:43:00 EDT, STAT, Start date 06/20/24 19:43:00 EDT, Infuse over 61, minute(s) Sodium Chloride 0.9% intravenous solution, 1,000 mL, Soln-IV, IV, Once, Stop date 06/20/24 18:55:00 EDT, STAT, Start date 06/20/24 18:55:00 EDT, Infuse over 61, minute(s) Basic Metabolic Panel CBC w/ Auto Diff eGFR Extra Blue Tube Hepatic Function Panel Lipase Level Saline Lock Insert U Beta Hcg Qual UA with Cult Rflx Medications Administered Given Al hydroxide/Mg hydroxide/simethicone 200 mg-200 mg-20 mg/5 mL oral suspension, 30 mL, Oral famotidine 10 mg/mL IV Deniz, 20 mg, IV Push lidocaine Viscous Top 2% Deniz, 200 mg, Oral morphine 2 mg/mL Inj, 2 mg, IV Push NS 1000 ml Bolus, 1000 mL, IV NS 1000 ml Bolus, 1000 mL, IV Sodium Chloride 0.9% IV Deniz 50 mL [F] 50 mL + [id number] [F] 12.5 mg, IV Piggyback Disposition Plan Discharge Prescription List Prescriptions No active prescription medications Follow-up With When Contact Information YOSSI GOLDEN In 3 days [address] [place] [address] Business (1) (more content not included)... Normal [facility] Comment on above: Result Comment: Elec tronically Signed By: Tonny Butler DO\.br\Date and Time Signed: 06/20/24 23:02 EDT ED Patient Summaryon 024 ED Patient Summary ED Patient Summary [place] [id number] Patient Discharge Instructions Person Information Name: GAEL RUBY Age: 28 Years Arrival Date: 06/20/2024 18:41:42 Discharge Diagnosis: Epigastric abdominal pain; Gastroparesis Primary Care Physician: YOSSI GOLDEN MD Provider Information Primary Provider: Tonny Butler DO [employer] Processor:None The exam and treatment you received in the Emergency Department were for an urgent problem and are not intended as complete care. It is important that you follow up with a doctor, nurse practitioner, or physician?s secretary administrative assistant for ongoing care. If your symptoms become worse or you do not improve as expected and you are unable to reach your usual health care provider, you should return to the Emergency Department. We are available 24 hours a day. GAEL RUBY has been given the following list of patient education materials, prescriptions and follow-up instructions: Follow-up Instructions: With: Address: When: YOSSI GOLDEN [address] [place] [id number] Business (1) In 3 days In the event that this physician does not participate in your insurance network, please consult with your insurance company to find a nearby participating provider. Patient Education Materials: Gastroparesis A MESSAGE TO ALL PATIENTS REGARDING OPIOIDS PRESCRIPTION OPIOIDS: WHAT YOU NEED TO KNOW Prescription opioids can be used to help relieve ylbvlgwe-ta-chzxen pain and are often prescribed following a surgery or injury, or for certain health conditions. These medications can be an important part of the treatment but also come with serious risks. It is important to work with your healthcare provider to make sure you are getting the safest, most effective care. WHAT ARE THE RISKS AND SIDE EFFECTS OF OPIOID USE? Prescription opioids carry serious risks of addiction and overdose, especially with prolonged use. An opioid overdose, often marked by slowed breathing, can cause sudden . The use of prescription opioids can have a number of side effects as well, even when taken as directed: ? Tolerance?meaning you might need to take more of the medication for the same pain relief ? Physical dependence?meaning you have symptoms of withdrawal when a medication is stopped ? Increased sensitivity to pain ? Constipation ? Nausea, vomiting, and dry mouth ? Sleepiness and dizziness ? Confusion ? Depression ? Low levels of testosterone that can result in lower sex drive, energy, and strength ? Itching and sweating RISKS ARE GREATER WITH: ? History of drug misuse, substance use disorder, or overdose ? Mental health conditions (such as depression or anxiety) ? Sleep apnea ? Older age (65 years and older) ? Avoid alcohol while taking prescription opioids. Also, unless specifically advised by your health care provider, medications to avoid include: ? Benzodiazepines (such as Xanax or Valium) ? Muscle relaxants (such as Soma or Flexeril) ? Hypnotics (such as Ambien or Lunesta) ? Other prescription opioids KNOW YOUR OPTIONS Talk to your health care provider about ways to manage your pain that don?t involve prescription opioids. Some of these options may actually work better and have fewer risks and side effects. Options may include: ? Pain relievers such as acetaminophen, ibuprofen, and naproxen ? Some medication that are also used for depression or seizures ? Physical therapy and exercise ? Cognitive behavioral therapy, a psychological, goal-directed approach, in which patients learn how to modify physical, behavioral, and emotional triggers of pain and stress. IF YOU ARE PRESCRIBED OPIOIDS FOR PAIN: ? Never take opioids in greater amounts or more often than prescribed. ? Follow up with your primary health care provider. o Work together to create a plan on how to manage your pain. o Talk about ways to help manage your pain that don?t involve prescription opioids. o Talk about any and all concerns and side effects. ? Help prevent misuse and abuse o Never sell or share prescription opioids. o Never use another person?s prescription opioids. ? Store prescription opioids in a secure place and out of reach of others (this may include visitors, children, friends, and family). ? Safely dispose of unused prescription opioids: Find your community drug take-back program or your pharmacy mail-back program, or flush them down the toilet, following guidance from the Food and Drug Administration (www.fda.gov/Drugs/Res ourcesForYou). ? Visit www.cdc.gov/drugoverdo se to learn about the risks of opioids abuse and overdose. ? If you believe you may be struggling with addiction, tell your health manager managed care and ask for guidance or call [facility]S National Helpline at 7-667-757-OBMT. b [facility] (more content not included)... Normal [facility] Extra Blueon 06-20-2024 Tube Collected Plasma Yes Invalid Interpretation Code [facility] Comment on above: Performed By: #### 1 [id number] #### [facility] [address] [place] [address] HEMATOLOGYOrdered By: SYSTEM SYSTEM on 06-20-2024 Basophils/100 WBC (Bld) 1.0 % Normal 0.0 - 2.0 % Remisol Heme Basophils/Leukocytes Auto (Bld) [Pure # fraction] 0.1 E9/L Normal 0.0 - 0.2 E9/L Remisol Heme Eosinophils (Bld) [#/Vol] 0.3 E9/L Normal 0.0 - 0.5 E9/L Remisol Heme Eosinophils/100 WBC (Bld) 2.7 % Normal 0.0 - 8.0 % Remisol Heme Erythrocyte distribution width (RBC) [Ratio] 13.5 % Normal 10.9 - 14.2 % Remisol Heme Hematocrit (Bld) [Volume fraction] 39.7 % Normal 34.0 - 46.0 % Remisol Heme Hemoglobin (Bld) [Mass/Vol] 13.8 g/dL Normal 12.0 - 16.0 gm/dL Remisol Heme Lymphocytes (Bld) [#/Vol] 3.1 E9/L Normal 1.0 - 4.0 E9/L Remisol Heme Lymphocytes/100 WBC (Bld) 29.9 % Normal 14.0 - 50.0 % Remisol Heme MCH (RBC) [Entitic mass] 31.0 pg Normal 27.0 - 34.0 pg Remisol Heme MCHC (RBC) [Mass/Vol] 34.8 g/dL Normal 31.4 - 36.0 gm/dL Remisol Heme MCV (RBC) [Entitic vol] 89.1 fL Normal 80.0 - 100.0 fL Remisol Heme Monocytes (Bld) [#/Vol] 0.4 E9/L Normal 0.2 - 1.0 E9/L Remisol Heme Monocytes/100 WBC (Bld) 4.2 % Normal 4.0 - 14.0 % Remisol Heme Neutrophils (Bld) [#/Vol] 6.4 E9/L Normal 2.0 - 7.5 E9/L Remisol Heme Neutrophils/100 WBC (Bld) 62.2 % Normal 36.0 - 75.0 % Remisol Heme Platelet mean volume (Bld) [Entitic vol] 9.1 fL Normal 6.4 - 10.8 fL Remisol Heme Platelets (Bld) [#/Vol] 286.0 E9/L Normal 150.0 - 500.0 E9/L Remisol Heme RBC (Bld) [#/Vol] 4.5 E12/L Normal 4.3 - 5.9 E12/L Remisol Heme WBC corrected for nucl RBC Auto (Bld) [#/Vol] 10.3 E9/L Normal 4.0 - 11.0 E9/L Remisol Heme Hep Func Panelon 06-20-2024 Albumin [Mass/Vol] 4.1 g/dL Normal 3.3-5.0 [facility] Comment on above: Performed By: #### 2 [id number] #### [facility] [address] [place] [address] Albumin/Globulin (S) [Mass conc ratio] 1.4 Normal 1.1-2.2 [facility] Comment on above: Performed By: #### 2 [id number] #### [facility] [address] [place] [address] ALP [Catalytic activity/Vol] 74 Int._Unit/L Normal 21-98 [facility] Comment on above: Performed By: #### 2 [id number] #### [facility] [address] [place] [address] ALT No additional P-5'-P [Catalytic activity/Vol] 46 Int._Unit/L Normal 6-46 [facility] Comment on above: Performed By: #### 2 [id number] #### [facility] [address] [place] [address] AST [Catalytic activity/Vol] 47 Int._Unit/L High 5-43 [facility] Comment on above: Performed By: #### 2 [id number] #### [facility] [address] [place] [address] Bilirubin [Mass/Vol] 0.5 mg/dL Normal 0.0-1.1 [facility] Comment on above: Performed By: #### 2 [id number] #### [facility] [address] [place] [address] Bilirubin.direct [Mass/Vol] 0.0 mg/dL Normal 0.0-0.4 [facility] Comment on above: Performed By: #### 2 [id number] #### [facility] [address] [place] [address] Bilirubin.indirect [Mass or moles/Vol] 0.5 mg/dL Normal 0.1-0.9 [facility] Comment on above: Performed By: #### 2 [id number] #### [facility] [address] [place] [address] Globulin (S) [Mass/Vol] 3.0 g/dL Normal 1.4-4.0 [facility] Comment on above: Performed By: #### 2 [id number] #### [facility] [address] [place] [address] Protein [Mass/Vol] 7.1 g/dL Normal 6.0-7.8 [facility] Comment on above: Performed By: #### 2 [id number] #### [facility] [address] [place] [address] Lipase Levelon 06-20-2024 Lipase [Catalytic activity/Vol] 100 U/L High 13-58 [facility] Comment on above: Performed By: #### 2 [id number] #### [facility] [address] [place] [address] SEROLOGYOrdered By: Nehal Toscano on 06-20-2024 HCG.beta subunit (U) [Moles/Vol] Negative Normal [facility] Man Sero U BetaHcg Qualon 06-20-2024 HCG.beta subunit (U) [Moles/Vol] Negative Normal [facility] Comment on above: Performed By: #### 2 [id number] #### [facility] [address] [place] [address] UA with Cult Rflxon 06-20-20 Bilirubin Ql (U) Negative Normal Negative [facility] Comment on above: Performed By: #### 4 [id number] #### [facility] [address] [place] [address] Clarity (U) Clear Normal Clear [facility] Comment on above: Performed By: #### 4 [id number] #### [facility] [address] [place] [address] Color (U) Light-Yellow Normal Yellow [facility] Comment on above: Result Comment: Micr oscopic readings are only performed on those samples that meet specific criteria set forth by [facility]. Performed By: #### 4 [id number] #### [facility] [address] [place] [address] Glucose Ql (U) 4+ mg/dL Abnormal Negative [facility] Comment on above: Performed By: #### 4 [id number] #### [facility] [address] [place] [address] Hemoglobin Auto test strip (U) [Mass/Vol] Negative Normal Negative [facility] Comment on above: Performed By: #### 4 [id number] #### [facility] [address] [place] [address] Ketones Auto test strip Ql (U) Trace Abnormal Negative [facility] Comment on above: Performed By: #### 4 [id number] #### [facility] [address] [place] [address] Leukocyte esterase Auto test strip Ql (U) Negative Normal Negative [facility] Comment on above: Performed By: #### 4 [id number] #### [facility] [address] [place] [address] Nitrite Auto test strip Ql (U) Negative Normal Negative [facility] Comment on above: Performed By: #### 4 [id number] #### [facility] [address] [place] [address] pH (U) 5.5 [pH] Invalid Interpretation Code 5.0-9.0 [facility] Comment on above: Performed By: #### 4 [id number] #### [facility] [address] [place] [address] Protein Ql (U) Negative Normal Negative [facility] Comment on above: Performed By: #### 4 [id number] #### [facility] [address] [place], [place] [id number] Specific gravity (U) [Rel density] 1.029 Invalid Interpretation Code 1.005-1.030 [facility] Comment on above: Performed By: #### 4 [id number] #### [facility] [address] [place] [address] Urobilinogen (U) [Mass/Vol] Negative Normal Negative [facility] Comment on above: Performed By: #### 4 [id number] #### [facility] [address] [place] [address] Type of Urine collection method Clean Catch Normal [facility] Comment on above: Performed By: #### 4 [id number] #### [facility] [address] [place] [address] URINALYSISOrdered By: SYSTEM SYSTEM on 06-20-2024 Bilirubin Ql (U) Negative Normal Negativemg/ dL FT UA Auto SS Clarity (U) Clear (06/20/24 8:27 PM) Normal Clear FT UA Auto SS Color (U) Light-Yellow 1 (06/20/24 8:27 PM) Normal Yellow FT UA Auto SS Comment on above: Interpretive Data: M icroscopic readings are only performed on those samples that meet specific criteria set forth by [facility]. Glucose Ql (U) 4+ mg/dL Invalid Interpretation Code Negativemg/ dL [facility] UA Auto SS Hemoglobin Auto test strip (U) [Mass/Vol] Negative Normal Negativemg/ dL [facility] UA Auto SS Ketones Auto test strip Ql (U) Trace mg/dL Invalid Interpretation Code Negativemg/ dL [facility] UA Auto SS Leukocyte esterase Auto test strip Ql (U) Negative Normal NegativeLeu /uL [facility] UA Auto SS Nitrite Auto test strip Ql (U) Negative Normal Negativemg/ dL [facility] UA Auto SS pH (U) 5.5 *NA* (06/20/24 8:27 PM) Invalid Interpretation Code 5.0 - 9.0 [facility] UA Auto SS Protein Ql (U) Negative Normal Negativemg/ dL [facility] UA Auto SS Specific gravity (U) [Rel density] 1.029 *NA* (06/20/24 8:27 PM) Invalid Interpretation Code 1.005 - 1.030 [facility] UA Auto SS Urobilinogen (U) [Mass/Vol] Negative Normal Negativemg/ dL [facility] UA Auto SS URINALYSISOrdered By: Tonny cameron on 06-20-2024 UA Spec Desc Clean Catch (06/20/24 8:27 PM) Normal [facility] UA Auto SS eGFRon 06-20-2024 eGFR 102 mL/min/1.73 m2 Normal >=59 [facility] Comment on above: Performed By: #### 1 [id number] #### [facility] [address] [facility] [place] [address] CBC with Diffon 06-16-2024 Abs. Basophil 0.06 k/uL Normal 0.00-0.20 [facility] Comment on above: Performed By: #### C ANA ROBLEDO, LIP ####[facility] [place] [address] lab Director: Murtaza Arceo MD Abs.Imm.Granulocyte 0.03 k/uL Normal 0.00-0.30 [facility] Comment on above: Performed By: #### C ANA ROBLEDO, LIP ####[address] , [id number] Lab Director: Murtaza Arceo MD Abs.Neutrophil (Seg) 6.02 k/uL Normal 1.50-8.10 [facility] Comment on above: Performed By: #### C DP, CP, LIP ####[address] , [place] [address])[phone] Director: Murtaza Arceo MD Basophils/100 WBC (Bld) 1 % Normal 0-2 [facility] Comment on above: Performed By: #### C DP, CP, LIP ####[address] [place], [place] [address])[phone] Director: Murtaza Arceo MD Eosinophils (Bld) [#/Vol] 0.21 10*3/uL Normal 0.00-0.44 [facility] Comment on above: Performed By: #### C DP, CP, LIP ####[address] , [place] [address])[phone] Director: uMrtaza Arceo MD Eosinophils/100 WBC (Bld) 2 % Normal 1-4 [facility] Comment on above: Performed By: #### C DP, CP, LIP ####[address] [place] [id number] Lab Director: Murtaza Arceo MD Erythrocyte distribution width (RBC) [Ratio] 12.9 % Normal 11.8-14.4 [facility] Comment on above: Performed By: #### C DP, CP, LIP ####[address] [place] [id number])[phone] Director: Murtaza Arceo MD Hematocrit (Bld) [Volume fraction] 43.0 % Normal 36.3-47.1 [facility] Comment on above: Performed By: #### C DP, CP, LIP ####[address] [id number] Lab Director: Murtaza Arceo MD Hemoglobin (Bld) [Mass/Vol] 14.6 g/dL Normal 11.9-15.1 [facility] Comment on above: Performed By: #### C DP, CP, LIP ####[address] , [id number] Lab Director: Murtaza Arceo MD Immature granulocytes/100 WBC (Bld) 0 % Normal 0 [facility] Comment on above: Performed By: #### C DP, CP, LIP ####[address] , [place] [address] Lab Director: Murtaza Arceo MD Lymphocytes (Bld) [#/Vol] 3.39 10*3/uL Normal 1.10-3.70 [facility] Comment on above: Performed By: #### C DP, CP, LIP ####[address] , [place] [address])[phone] Director: Murtaza Arceo MD Lymphocytes/100 WBC (Bld) 33 % Normal 24-43 [facility] Comment on above: Performed By: #### C DP, CP, LIP ####[address] , [id number] Lab Director: Murtaza Arceo MD MCH (RBC) [Entitic mass] 30.2 pg Normal 25.2-33.5 [facility] Comment on above: Performed By: #### C DP, CP, LIP ####[address] [place] [address] Lab Director: Murtaza Arceo MD MCHC (RBC) [Mass/Vol] 34.0 g/dL Normal 28.4-34.8 [facility] Comment on above: Performed By: #### C DP, CP, LIP ####[address] , [id number] Lab Director: Murtaza Arceo MD MCV (RBC) [Entitic vol] 89.0 fL Normal 82.6-102.9 [facility] Comment on above: Performed By: #### C DP, CP, LIP ####[address] , [place] [id number] Lab Director: Murtaza Arceo MD Monocytes (Bld) [#/Vol] 0.59 10*3/uL Normal 0.10-1.20 [facility] Comment on above: Performed By: #### C DP, CP, LIP ####[address] [place] [address] Lab Director: Murtaza Arceo MD Monocytes/100 WBC (Bld) 6 % Normal 3-12 [facility] Comment on above: Performed By: #### C DP CP, LIP ####[address] , [place] [phone] Director: Murtaza Areco MD Neutrophil (Seg) 58 % Normal 36-65 [facility] Comment on above: Performed By: #### C DP CP, LIP ####[address] , [place] [phone] Director: Murtaza Arceo MD NRBC Automated 0.0 per 100 WBC Normal 0.0 [facility] Comment on above: Performed By: #### C DP CP, LIP ####[address] , [place] [phone] Director: Murtaza Arceo MD Platelet mean volume (Bld) [Entitic vol] 10.6 fL Normal 8.1-13.5 [facility] Comment on above: Performed By: #### C DP, CP, LIP ####[address] , [place] [phone] Director: Murtaza Arceo MD Platelets (Bld) [#/Vol] 307 10*3/uL Normal 138-453 [facility] Comment on above: Performed By: #### C DP, CP, LIP ####[address] , [place] 3834183 Lab Director: Murtaza Arceo MD RBC (d) [#/Vol] 4.83 10*6/uL Normal 3.95-5.11 [facility] Comment on above: Performed By: #### C DP, CP, LIP ####[address] , [place] 4881383 Lab Director: Murtaza Arceo MD WBC (Bld) [#/Vol] 10.3 10*3/uL Normal 3.5-11.3 [facility] Comment on above: Performed By: #### C DP, CP, LIP ####[address] , [place] 9503683 Lab Director: Murtaza Arceo MD Comp Metabolic Profon 2023 Albumin [Mass/Vol] 4.4 g/dL Normal 3.5-5.2 [facility] Comment on above: Performed By: #### C DP, CP, LIP ####[address] , [place] [id number] Lab Director: Murtaza Arceo MD Albumin/Glob Ratio 1.4 Normal 1.0-2.5 [facility] Comment on above: Performed By: #### C DP, CP, LIP ####[address] [place] [address] Lab Director: Murtaza Arceo MD Alkaline Phos 101 U/L Normal 35-104 [facility] Comment on above: Performed By: #### C DP, CP, LIP ####[address] [place] [address] Lab Director: Murtaza Arceo MD ALT [Catalytic activity/Vol] 59 U/L High 10-35 [facility] Comment on above: Performed By: #### C DP, CP, LIP ####[address] , [place] 1955483 Lab Director: Murtaza Arceo MD Anion gap [Moles/Vol] 13 mmol/L Normal 9-16 [facility] Comment on above: Performed By: #### C DP, CP, LIP ####[address] , [place] [phone] Lab Director: Murtaza Arceo MD AST [Catalytic activity/Vol] 51 U/L High 10-35 [facility] Comment on above: Performed By: #### C DP, CP, LIP ####[address] , [place] 0100383 lab Director: uMrtaza Arceo MD Bilirubin [Mass/Vol] 0.2 mg/dL Normal 0.00-1.20 [facility] Comment on above: Performed By: #### C DP, CP, LIP ####[address] , [place] 5965183 Lab Director: Murtaza Arceo MD BUN/CRE Ratio 8 Low 9-20 [facility] Comment on above: Performed By: #### C DP, CP, LIP ####[address] , [place] 0359383 Lab Director: Murtaza Arceo MD Calcium [Mass/Vol] 9.9 mg/dL Normal 8.6-10.4 [facility] Comment on above: Performed By: #### C DP, CP, LIP ####[address] , [place] 5614483 Lab Director: Murtaza Arceo MD Chloride [Moles/Vol] 107 mmol/L Normal 98-107 [facility] Comment on above: Performed By: #### C DP, CP, LIP ####[address] , [place] 9006383 Lab Director: Murtaza Arceo MD CO2 [Moles/Vol] 23 mmol/L Normal 20-31 [facility] Comment on above: Performed By: #### C VENKAT CP, LIP ####[address] , [place] [phone] lab Director: Murtaza Arceo MD Creatinine [Mass/Vol] 0.8 mg/dL Normal 0.50-0.90 [facility] Comment on above: Performed By: #### C DP CP, LIP ####[address] [place] [address] Lab Director: Murtaza Arceo MD GFR/1.73 sq M.predicted among non-blacks MDRD (S/P/Bld) [Vol rate/Area] mL/min/{1.73_m2} Normal >60 [facility] Comment on above: Result Comment: Thes [...] renal tubular secretion. Performed By: #### C VENKAT CP, LIP ####[address] , [place] [id number] Lab Director: Murtaza Arceo MD Glucose [Mass/Vol] 159 mg/dL High 74-99 [facility] Comment on above: Performed By: #### C DP CP, LIP ####[address] , [place] [id number] Lab Director: Murtaza Arceo MD Potassium [Moles/Vol] 4.2 mmol/L Normal 3.7-5.3 [facility] Comment on above: Performed By: #### C DP CP, LIP ####[address] , [place] [id number] Lab Director: Murtaza Arceo MD Protein [Mass/Vol] 7.6 g/dL Normal 6.6-8.7 [facility] Comment on above: Performed By: #### C DP, CP, LIP ####[address] [place] [address] Lab Director: Murtaza Arceo MD Sodium [Moles/Vol] 143 mmol/L Normal 136-145 [facility] Comment on above: Performed By: #### C DP, CP, LIP ####[address] [place] [address] Lab Director: Murtaza Arceo MD Urea nitrogen [Mass/Vol] 6 mg/dL Normal 6-20 [facility] Comment on above: Performed By: #### C DP, CP, LIP ####[address] , [place] [id number] Lab Director: Murtaza Arceo MD Lactic Acidon 06-16-2024 Lactate [Moles/Vol] 1.9 mmol/L Normal 0.5-2.2 [facility] Comment on above: Performed By: #### L ACTIC ####[address] [place] [address] Lab Director: Murtaza Arceo MD Lipaseon 06-16-2024 Lipase [Catalytic activity/Vol] 84 U/L High 13-60 [facility] Comment on above: Performed By: #### C DP, CP, LIP ####[address] , [place] 8288183 Lab Director: Murtaza Arceo MD [id number] 06-16-2024 SARS-CoV-2 (COVID-19) RNA ABRAHAM+probe Ql (Unsp spec) Not detected Normal NOTDET [facility] Comment on above: Result Comment: Tommie ritter NAAT: The specimen is NEGATIVE for SARS-CoV-2, [...] patient management decisions.Fact sheet for Healthcare Providers: https://www.fda.gov/media/787845/downloadFact sheet for Patients: https://www.fda.gov/media/621450/downloadMethodology: Isothermal Nucleic Acid Amplification Performed By: #### C OVRB ####[facility] , [place] 1194883 [facility] Director: Murtaza Arceo MD XR CHEST PORTABLEon 06-16-20 24 XR CHEST PORTABLE Normal [facility] COV19 Rapidon 06-14-2024 LAB ONLY Result Called? No Normal [facility] Comment on above: Performed By: #### . Automated Diff #### [address] [address] Reason for Rapid Test Inpatient Normal [facility] Comment on above: Performed By: #### . Automated Diff #### [address] [address] SARS-CoV-2 (COVID-19) RNA ABRAHAM+probe Ql (Unsp spec) Negative Normal Negative [facility] Comment on above: Result Comment: This test is for the detection of SARS-CoV-2 RNA. Positive results are indicative of active infection with SARS-CoV-2. Positive results do not rule out bacterial infection or co-infection with other viruses. Negative results should be treated as presumptive and, if inconsistent with clinical signs and symptoms or necessary for patient management, should be tested with an alternative molecular assay.Negative results do not preclude SARS-CoV-2 infection and should not be used as the sole basis for treatment or other patient management decisions. Clinical correlation with patient history and other diagnostic information is necessary to determine patient infection status. ID NOW COVID-19 2.0 assay performed on the ID NOW Instrument is a rapid molecular in vitro diagnostic test utilizing an isothermal nucleic acid amplification technology (NAAT) intended for the qualitative detection of nucleic acid from SARS-CoV-2 in direct anterior nasal (nasal) or nasopharyngeal swab specimens from individuals with signs and symptoms of respiratory tract infection. Performed By: #### . Automated Diff #### [address] [address] ED Clinical Summaryon 2023 ED Clinical Summary [place] [id number] ED Clinical Summary Person Information Name: Gael Ruby Josep/[facility] Age: 28 Years : 1995 Sex: Female PCP: Yossi Golden MD Marital Status: Phone: Race: White Ethnicity: Not or Language: Somali Visit Reason: Abdominal pain; Cough; upper respiratory infection Acuity: 3 Enc Type: Emergency Med Service: Emergency Medicine Arrival: 06/14/2024 15:00:32 Discharge: 06/14/2024 18:15:00 LOS: 000 03:15 Checkin: 06/14/2024 15:00:32 Checkout: 06/14/2024 18:15:00 Dispo Type: Home or Self Care Address: [address] [place] [id number] Provider Notes: Diagnosis: 1:Upper respiratory infection; 2:Nausea Problems No Problems Documented Smoking Status: Smoking Status 5-9 cigarettes (between 1/4 to 1/2 pack)/day in last 30 days Functional Status: Sensory Deficits: History of Falls: Mobility Assistance Prior to Admission: ADLs: Current Level of Assistance for Self-Care/Mobility: Cognitive Status: Allergies Latex (Rash) (Hives) penicillin (Hives) (Itchy) (Nausea) Pyridium (Anxiety increase) Toradol (Hives) (Shortness of breath) (Itchy) egg-containing compound (Nausea) traMADol (Nausea) Laboratory or Other Results This Visit (last charted value for your 06/14/2024 visit) Molecular 06/14/2024 3:40 PM SARS-CoV-2 RNA Detection: Negative Diagnostic Radiology 06/14/2024 4:02 PM XR Chest 1 View: XR Chest 1 View Measurements: Height: Weight: 111.7 kg Blood Pressure: /87 mmHg BMI: Procedures No Procedures Documented Immunizations No Immunizations Documented This Visit Final Med List: Medications that have not changed Other Medications albuterol (albuterol 90 mcg/inh inhalation aerosol) 2 Puffs Inhale (breathe in) every 6 hours as needed as needed for wheezing. Last Dose: ___ clindamycin (clindamycin 300 mg oral capsule) 1 Capsules Oral (given by mouth) every 6 hours. Last Dose: ___ dulaglutide (Trulicity Pen 3 mg/0.5 mL subcutaneous solution) 0.5 Milliliter Subcutaneous (under the skin) Every Saturday. Last Dose: ___ gabapentin (gabapentin 100 mg oral capsule) 1 Capsules Oral (given by mouth) 2 times a day., Responsible Provider: CHAPIN HOUSTON Last Dose: ___ glipiZIDE (glipiZIDE 10 mg oral tablet) 2 Tabs Oral (given by mouth) 2 times a day. Last Dose: ___ hydrOXYzine (hydrOXYzine hydrochloride 25 mg oral tablet) 1 Tabs Oral (given by mouth) 3 times a day as needed as needed for anxiety. Last Dose: ___ hyoscyamine (hyoscyamine 0.125 mg sublingual tablet) 1 Tabs Sublingual (dissolve under the tongue) every 4 hours as needed cramping. Last Dose: ___ insulin glargine (Lantus Solostar Pen 100 units/mL subcutaneous solution) 30 Units Subcutaneous (under the skin) once a day (at bedtime). Last Dose: ___ lidocaine topical (lidocaine 5% topical film) 1 Patches Topical (on the skin) every day as needed PRN., Responsible Provider: CHAPIN HOUSTON Last Dose: ___ metoclopramide (metoclopramide 10 mg oral tablet) 1 Tabs Oral (given by mouth) 4 times a day as needed nausea/vomiting. Last Dose: ___ metoclopramide (Reglan 10 mg oral tablet) 1 Tabs Oral (given by mouth) four times a day (before meals and at bedtime) as needed nausea/vomiting. Refills: 0. Last Dose: ___ Misc Medication 238 g, 0 Refill(s). Last Dose: ___ omeprazole (omeprazole 40 mg oral delayed release capsule) 1 Capsules Oral (given by mouth) 2 times a day. Last Dose: ___ ondansetron (Zofran ODT 4 mg oral tablet, disintegrating) 1 Tabs Oral (given by mouth) every 8 hours as needed as needed for nausea/vomiting. Refills: 0. Last Dose: ___ ondansetron (Zofran ODT 4 mg oral tablet, disintegrating) 1 Tabs Oral (given by mouth) 3 times a day as needed as needed for nausea/vomiting for 3 Days. Refills: 0. Last Dose: ___ ondansetron (Zofran ODT 4 mg oral tablet, disintegrating) 1 Tabs Oral (given by mouth) every 8 hours as needed as needed for nausea/vomiting. Refills: 0. Last Dose: ___ oxyCODONE-acetaminophe n (Percocet 5 mg-325 mg oral tablet) 1 Tabs Oral (given by mouth) every 4 hours as needed as needed for pain for 3 Days. Refills: 0. Last Dose: ___ promethazine (promethazine 12.5 mg oral tablet) 1 Tabs Oral (given by mouth) every 4 hours as needed as needed for nausea/vomiting for 3 Days. Refills: 0. Last Dose: ___ promethazine (promethazine 25 mg oral tablet) 1 Tabs Oral (given by mouth) every 6 hours as needed as needed for nausea/vomiting. Refills: 0. Last Dose: ___ scopolamine (Transderm-Scop 1 mg/7 (more content not included)... Normal [facility] ED Note-Physicianon 06-14-20 ED Note-Physician Chief Complaint cough History of Present Illness Patient presents to the ED with complaints of cough x 1 week. She notes nasal congestion. No fever. She states she has a chronic Hx of gastroparesis and nausea. No vomiting. No acute abdominal pain. No diarrhea or bloody stools. No sore throat. No difficulty breathing or swallowing. She was prescribed Azithromycin this week at the urgent care. Review of Systems GENERAL: Negative for fever, chills EYES: Negative for acute changes NECK: Negative for pain CARDIOVASCULAR: Negative for chest pain RESPIRATORY: Negative for shortness of breath, + for cough ABDOMEN/GI: + nausea. Negative for recent vomiting, diarrhea BACK: Negative for pain MUSCULOSKELETAL: Negative for acute pain and swelling SKIN: Negative for rash, discoloration NEURO: Negative for headache, focal weakness, acute numbness, acute tingling Physical Exam CONSTITUTIONAL: Patient is awake and alert HEAD: Normocephalic, atraumatic HEENT: Moist mucus membranes, oropharynx clear. + nasal congestion and clear nasal discharge. Uvula midline. Swallowing normally, normal voice. No stridor. EYES: Pupils are equally round and reactive to light, lids and lashes normal, clear conjunctiva, non-icteric sclera. No drainage NECK: Trachea midline, external neck normal, supple, no nuchal rigidity or meningismus PULMONARY: Clear to auscultation bilaterally with equal sounds. Normal rate and effort CARDIOVASCULAR: Regular rate and rhythm. GASTROINTESTINAL: Soft, non-tender, normal bowel sounds, no rebound or guarding BACK: No flank tenderness SKIN: Warm and dry. No petechiae MUSCULOSKELETAL: Extremities without acute deformity. No edema or tenderness. No midline C/T/L spine tenderness. Normal distal pulses and cap refill. NEUROLOGIC: No gross motor or sensory deficits. Normal tone. Normal coordination. PSYCHIATRIC: Normal mood and affect Vitals & Measurements T: 36.3 ?C (Oral) HR: 80 (Peripheral) RR: 14 BP: 125/87 SpO2: 97% HT: 174 cm WT: 111.7 kg (Dosing) Additional Vitals No qualifying data available. Procedure No qualifying data available. ASA Documentation Medical Decision Making Improved in the ED. Appears well, NAD. ED return precautions reviewed and follow up plan discussed. Assessment/Plan 1. Upper respiratory infection 2. Nausea Orders: Discharge Patient Refresh vitals and sections below: Problem List/Past Medical History Ongoing ADD Anxiety Asthma Back pain Bladder disorder Body mass index 30+ - obesity Depression Gestational diabetes mellitus, class A>1< Group B streptococcus HSV Maternal tobacco use PCOS- polycystic ovary syndrome Type 2 diabetes mellitus Historical Gestational diabetes Miscarriage MRSA Ovarian cyst Procedure/Surgical History Dilation and curettage D&C - Dilatation and curettage Removal of remaining ovary Anastomosis of gall bladder Laparoscopic excision of pelvic endometriosis Surgical removal of wisdom tooth Caesarean section Local anaesthetic infiltration of tear duct [place] Tooth extraction (2009) Oopherectomy (06/2010) Tonsillectomy and adenoidectomy (02/2011) Eye Surgery (12/15/2011) Cystoscopy (07/22/2012) Diagnostic Laparoscopy (07/22/2012) (03/22/2016) Laparoscopic cholecystectomy (03/29/2017) delivery only; (12/20/2017) Section (12/20/2017) (05/22/2020) Dilation and Curettage (03/20/2021) Vaginal Hysterectomy (11/12/2022) Medications Inpatient No active inpatient medications Home albuterol 90 mcg/inh inhalation aerosol, 2 puffs, Inhale, q6hr, PRN clindamycin 300 mg oral capsule, 300 mg= 1 caps, Oral, q6hr gabapentin 100 mg oral capsule, 100 mg= 1 caps, Oral, BID glipiZIDE 10 mg oral tablet, 20 mg= 2 tabs, Oral, BID hydrOXYzine hydrochloride 25 mg oral tablet, 25 mg= 1 tabs, Oral, TID, PRN hyoscyamine 0.125 mg sublingual tablet, 0.125 mg= 1 tabs, SL, q4hr, PRN Lantus Solostar Pen 100 units/mL subcutaneous solution, 30 units, Subcutaneous, HS (at bedtime) lidocaine 5% topical film, 1 patches, Topical, Daily, PRN metoclopramide 10 mg oral tablet, 10 mg= 1 tabs, Oral, QID, PRN Misc Medication, 238 g, 0 Refill(s) omeprazole 40 mg oral delayed release capsule, 40 mg= 1 caps, Oral, BID Percocet 5 mg-325 mg oral tablet, 1 tabs, Oral, q4hr, PRN, Not taking promethazine 12.5 mg oral tablet, 12.5 mg= 1 tabs, Oral, q4hr, PRN promethazine 25 mg oral tablet, 25 mg= 1 tabs, Oral, q6hr, PRN Reglan 10 mg oral tablet, 10 mg= 1 tabs, Oral, ACHS, PRN sertraline 100 mg oral tablet, 100 mg= 1 tabs, Oral, Daily tiZANidine 4 mg oral tablet, 4 mg= 1 tabs, Oral, q8hr, PRN Transderm-Scop 1 mg/72 hr transdermal film, extended release, 1 patches, TD, q72hr, PRN, apply to skin traZODone 150 mg oral tablet, 90 tabs, 0 Refill(s) Trulicity Pen 3 mg/0.5 mL subcutaneous solution, 3 mg= 0.5 mL, Subcutaneous, Saturday Zo (more content not included)... Normal [facility] XR Chest 1 Viewon 06-14-2024 XR Chest 1 View CLINICAL HISTORY: Cough. EXAMINATION: A single, upright portable view of the chest was obtained at 1550 hours. There is no prior study available for comparison. FINDINGS: The cardiomediastinal silhouette is unremarkable. The pulmonary vasculature is normal. There is no focal consolidation, pleural effusion or pneumothorax. The imaged upper abdomen is unremarkable. IMPRESSION: No acute process. Final Dictated by: Reynaldo Zurita MD Dictated DT/TM: 06/14/2024 4:12 pm Signed by: Reynaldo Zurita MD Signed (Electronic Signature): 06/14/2024 4:13 pm (If Report Is Signed, Electronically Signed in Other Vendor System) Normal [facility] B hCG Qualon 06-09-2024 Beta HCG ( test) Ql Negative Normal [facility] Comment on above: Performed By: #### 2 [id number] #### [facility] [address] [place] [address] BMPon 06-09-2024 Creatinine [Mass/Vol] 0.7 mg/dL Normal 0.5-1.3 [facility] Comment on above: Performed By: #### 2 [id number] #### [facility] [address] [place] [address] Urea nitrogen/Creatinine [Mass ratio] 13 No Units Normal 10-20 [facility] Comment on above: Performed By: #### 2 [id number] #### [facility] [address] [place] [address] Anion gap [Moles/Vol] 10 mmol/L Normal 6-16 [facility] Comment on above: Performed By: #### 2 [id number] #### [facility] [address] [place] [address] Calcium [Mass/Vol] 8.8 mg/dL Low 8.9-11.1 [facility] Comment on above: Performed By: #### 2 [id number] #### [facility] [address] [place] [address] Chloride [Moles/Vol] 108 mmol/L Normal 101-111 [facility] Comment on above: Performed By: #### 2 [id number] #### [facility] [address] [place] [address] CO2 [Moles/Vol] 25 mmol/L Normal 21-31 [facility] Comment on above: Performed By: #### 2 [id number] #### [facility] [address] [place] [address] Glucose [Mass/Vol] 171 mg/dL Normal 55-199 [facility] Comment on above: Performed By: #### 2 [id number] #### [facility] [address] [place] [address] Potassium [Moles/Vol] 3.8 mmol/L Normal 3.5-5.3 [facility] Comment on above: Performed By: #### 2 [id number] #### [facility] [address] [place] [address] Sodium [Moles/Vol] 139 mmol/L Normal 135-145 [facility] Comment on above: Performed By: #### 2 [id number] #### [facility] [address] [place] [address] Urea nitrogen [Mass/Vol] 9 mg/dL Normal 5-21 [facility] Comment on above: Performed By: #### 2 [id number] #### [facility] [address] [place] [address] CBC w/ Auto Diffon 4 Basophils/100 WBC (Bld) 0.5 % Normal 0.0-2.0 [facility] Comment on above: Performed By: #### 2 [id number] #### [facility] [address] [place] [address] Basophils/Leukocytes Auto (Bld) [Pure # fraction] 0.0 E9/L Normal 0.0-0.2 [facility] Comment on above: Performed By: #### 2 [id number] #### [facility] [address] [place] [address] Eosinophils (Bld) [#/Vol] 0.3 E9/L Normal 0.0-0.5 [facility] Comment on above: Performed By: #### 2 [id number] #### [facility] [address] [place] [address] Eosinophils/100 WBC (Bld) 3.4 % Normal 0.0-8.0 [facility] Comment on above: Performed By: #### 2 [id number] #### [facility] [address] [place] [address] Erythrocyte distribution width (RBC) [Ratio] 13.5 % Normal 10.9-14.2 [facility] Comment on above: Performed By: #### 2 [id number] #### [facility] [address] [place] [address] Hematocrit (Bld) [Volume fraction] 38.2 % Normal 34.0-46.0 [facility] Comment on above: Performed By: #### 2 [id number] #### [facility] [address] [place] [address] Hemoglobin (Bld) [Mass/Vol] 13.0 g/dL Normal 12.0-16.0 [facility] Comment on above: Performed By: #### 2 [id number] #### [facility] [address] [place] [address] Lymphocytes (Bld) [#/Vol] 3.0 E9/L Normal 1.0-4.0 [facility] Comment on above: Performed By: #### 2 [id number] #### [facility] [address] [place] [address] Lymphocytes/100 WBC (Bld) 41.1 % Normal 14.0-50.0 [facility] Comment on above: Performed By: #### 2 [id number] #### [facility] [address] [place] [address] MCH (RBC) [Entitic mass] 30.5 pg Normal 27.0-34.0 [facility] Comment on above: Performed By: #### 2 [id number] #### [facility] [address] [place] [address] MCHC (RBC) [Mass/Vol] 34.1 g/dL Normal 31.4-36.0 [facility] Comment on above: Performed By: #### 2 [id number] #### [facility] [address] [place] [address] MCV (RBC) [Entitic vol] 89.4 fL Normal 80.0-100.0 [facility] Comment on above: Performed By: #### 2 [id number] #### [facility] [address] [place] [address] Monocytes (Bld) [#/Vol] 0.5 E9/L Normal 0.2-1.0 [facility] Comment on above: Performed By: #### 2 [id number] #### [facility] [address] [place] [address] Neutrophils (Bld) [#/Vol] 3.6 E9/L Normal 2.0-7.5 [facility] Comment on above: Performed By: #### 2 [id number] #### [facility] [address] [place] [address] Neutrophils/100 WBC (Bld) 48.5 % Normal 36.0-75.0 [facility] Comment on above: Performed By: #### 2 [id number] #### [facility] [address] [place] [address] Platelet mean volume (Bld) [Entitic vol] 8.5 fL Normal 6.4-10.8 [facility] Comment on above: Performed By: #### 2 [id number] #### [facility] [address] [place] [address] Platelets (Bld) [#/Vol] 267.0 E9/L Normal 150.0-500.0 [facility] Comment on above: Performed By: #### 2 [id number] #### [facility] [address] [place] [address] RBC (Bld) [#/Vol] 4.3 E12/L Normal 4.3-5.9 [facility] Comment on above: Performed By: #### 2 [id number] #### [facility] [address] [place] [address] WBC corrected for nucl RBC Auto (Bld) [#/Vol] 7.4 E9/L Normal 4.0-11.0 [facility] Comment on above: Performed By: #### 2 [id number] #### [facility] [address] [place] [address] CHEMISTRYOrdered By: SYSTEM SYSTEM on 06-09-2024 Albumin [Mass/Vol] 3.8 g/dL Normal 3.3 - 5.0 gm/dL Remisol Chem Albumin/Globulin [Mass ratio] 1.4 {ratio} Normal 1.1 - 2.2 Remisol Chem ALP [Catalytic activity/Vol] 87 [iU]/d Normal 21 - 98 Int._Unit/L Remisol Chem ALT No additional P-5'-P [Catalytic activity/Vol] 40 [iU]/d Normal 6 - 46 Int._Unit/L Remisol Chem Anion gap [Moles/Vol] 10 mmol/L Normal 6 - 16 mEq/L Remisol Chem AST [Catalytic activity/Vol] 31 [iU]/d Normal 5 - 43 Int._Unit/L Remisol Chem Bilirubin [Mass/Vol] 0.3 mg/dL Normal 0.0 - 1 .1 mg/dL Remisol Chem Bilirubin.direct [Mass/Vol] 0.0 mg/dL Normal 0.0 - 0.4 mg/dL Remisol Chem Bilirubin.indirect [Mass or moles/Vol] 0.3 mg/dL Normal 0.1 - 0.9 mg/dL Remisol Chem Calcium [Mass/Vol] 8.8 mg/dL Low 8.9 - 11. 1 mg/dL Remisol Chem Chloride [Moles/Vol] 108 mmol/L Normal 101 - 1 11 mmol/L Remisol Chem CO2 [Moles/Vol] 25 mmol/L Normal 21 - 31 mmol/L [facility] Chem Creatinine [Mass/Vol] 0.7 mg/dL Normal 0.5 - 1.3 mg/dL Rem[facility] Chem eGFR 119 mL/min/1.73 m2 Normal >=59mL/mi n/ 1.73 m2 Remisol Chem Globulin (S) [Mass/Vol] 2.7 g/dL Normal 1.4 - 4.0 gm/dL [facility] Chem Glucose [Mass/Vol] 171 mg/dL Normal 55 - 199 mg/dL Rem[facility] Chem Lipase [Catalytic activity/Vol] 89 U/L High 13 - 58 unit/L Rem[facility] Chem Potassium [Moles/Vol] 3.8 mmol/L Normal 3.5 - 5.3 mmol/L Remisol Chem Protein [Mass/Vol] 6.5 g/dL Normal 6.0 - 7.8 gm/dL Rem[facility] Chem Sodium [Moles/Vol] 139 mmol/L Normal 135 - 145 mmol/L Remisol Chem Urea nitrogen [Mass/Vol] 9 mg/dL Normal 5 - 21 mg/dL Remisol Chem Urea nitrogen/Creatinine [Mass ratio] 13 mg/mg Normal 10 - 20 Remisol Chem ED Clinical Summaryon 2023 ED Clinical Summary ED Clinical Summary [place] [id number] ED Clinical Summary Person Information Name: GAEL RUBY [facility] Age: 28 Years : 1995 Sex: Female Language: Somali PCP: YOSSI GOLDEN MD Marital Status: Visit Id: Visit Reason: Constipation; Nausea; Abdominal pain; MEDICAL PROBLEM Speciality: Acuity: 3 Enc Type: Emergency Med Service: Emergency Arrival: 06/09/2024 02:27:27 Discharge: 06/09/2024 05:22:29 LOS: 000 02:55 Checkin: 06/09/2024 02:27:27 Checkout: 06/09/2024 05:22:29 Dispo Type: Home (Routine DC) EVENTS: Event Name Event Status Request Date/Time Start Date/Time Complete Date/Time Arrive Complete 06/09/2024 02:27:27 06/09/2024 02:27:27 06/09/2024 02:27:27 Document Home Meds Request 06/09/2024 02:27:27 Triage Complete 06/09/2024 02:27:27 06/09/2024 02:42:47 06/09/2024 02:42:47 Dr Exam Complete 06/09/2024 02:40:01 06/09/2024 02:40:01 06/09/2024 02:40:01 Registration Complete 06/09/2024 02:40:01 06/09/2024 02:43:16 06/09/2024 02:45:50 Isolation Screening Request 06/09/2024 02:42:47 30 Day Return Request 06/09/2024 02:42:47 Bed Assign Complete 06/09/2024 02:43:16 06/09/2024 02:43:16 06/09/2024 02:43:16 RN Exam Complete 06/09/2024 02:43:16 06/09/2024 03:36:10 06/09/2024 03:36:10 Reg Complete Request 06/09/2024 02:45:50 Reg Bed Request Complete 06/09/2024 02:45:50 06/09/2024 02:45:50 06/09/2024 02:45:50 Meds Admin Complete 06/09/2024 03:03:13 06/09/2024 03:28:25 Pending Labs Complete 06/09/2024 03:03:13 06/09/2024 04:12:00 Lab Complete 06/09/2024 03:03:13 06/09/2024 04:12:00 Pending Labs Complete 06/09/2024 03:14:11 06/09/2024 03:14:11 06/09/2024 04:11:38 Lab Complete 06/09/2024 03:14:11 06/09/2024 03:14:11 06/09/2024 04:11:38 Meds Admin Complete 06/09/2024 04:11:50 06/09/2024 04:28:11 Meds Admin Complete 06/09/2024 04:19:28 06/09/2024 04:28:11 Discharge Complete 06/09/2024 05:13:58 06/09/2024 05:22:37 06/09/2024 05:22:37 Transfer Complete 06/09/2024 05:22:37 06/09/2024 05:22:37 06/09/2024 05:22:37 ADDRESS: [address] [place] [id number] PHYS DOC NOTES: MEDICAL INFORMATION: Prescriptions Given: New Medications [facility] [id number], [address], [place] [id number], [phone] metoclopramide (Reglan 10 mg Tab) 1 Tablets By Mouth every 6 hours. Refills: 0. sucralfate (Carafate 1 gram Tab) 1 Tablets By Mouth 4 times a day for 7 Days. Refills: 0. Medications to Continue Taking That Have Changed [facility] [id number], [address], [place] [id number], [phone] START: promethazine (Phenergan 25 mg Supp) 1 Suppositories By rectum every 6 hours as needed Nausea/Vomiting. Refills: 0. Other Medications START: promethazine (Phenergan 12.5 mg Supp) 1 Suppositories By rectum every 4 hours as needed Nausea/Vomiting. If zofran is ineffective. START: promethazine (Phenergan 25 mg Supp) 1 Suppositories By rectum every 12 hours as needed Nausea/Vomiting. Refills: 6. Medications to Continue with No Changes Other Medications albuterol (Albuterol (Eqv-ProAir HFA) 90 mcg/inh inhalation aerosol) 2 Puffs Inhalation every 4 hours as needed Wheezing. dulaglutide (Trulicity Pen 1.5 mg/0.5 mL subcutaneous solution) 1.5 Milligram Subcutaneous every week. glipiZIDE (glipiZIDE 10 mg Tab) 1 Tablets By Mouth 2 times a day. hydrOXYzine (hydrOXYzine hydrochloride 25 mg Tab) 1 Tablets By Mouth every 6 hours as needed as needed for anxiety. hyoscyamine (hyoscyamine 0.375 mg ER Tab) 1 Tablets By Mouth at bedtime. ibuprofen insulin glargine (Lantus 100 units/mL Injection-Insulin) 30 Units Subcutaneous once a day (at bedtime). nicotine (nicotine 21 mg-14 mg-7 mg transdermal film, extended release) 1 Patches Transdermal at noon for 28 Days. Refills: 0. ondansetron (Zofran 4 mg Tab) 1 Tablets By Mouth every 8 hours as needed Nausea/Vomiting. Refills: 6. pantoprazole (Pantoprazole [address] Tab) 1 Tablets By Mouth 2 times a day. Refills: 0. sertraline (sertraline 100 mg Tab) 1 Tablets By Mouth every day. tizanidine (tiZANidine 4 mg Tab) 1 Tablets By Mouth 3 times a day. tizanidine (Zanaflex) By Mouth. PATIENT EDUCATION INFORMATION: Instructions: Gastroparesis; Abdominal Pain, Adult, [id number] Follow up: With: Address: When: YOSSI GOLDEN [address] [place], [place] [id number] Business (1) In 3 days 06/12/2024 Comments: You can use the nausea medication as prescribed as needed for nausea and vomiting. Please follow-up with your primary care doctor in the next 2 to 3 days for further evaluation and management. DIAGNOSIS: Chronic abdominal pain; Gastroparesis; Other chronic pain Normal [facility] ED Note-Physicianon 06-09-20 24 ED Note-Physician ED Note-Physician Basic Information Time Seen: Shaw Chavo 06/09/2024 02:40 Chief Complaint Pt arrives to ED for c/o abdominal pain, constipation, and nausea. Pt was seen yesterday at [facility] where she passed out, CT of head was negative per spouse. PCP prescribed Amidon for pain with no relief. H/O DM, gastroperesis. Denies fevers/chills. History of Present Illness Patient is a 28-year-old female with past medical history of gastroparesis, GERD, PE no longer on anticoagulation, diabetes presenting to the ED for evaluation of abdominal pain constipation and nausea. Patient states that she was seen yesterday had a full workup done including CT of the head and CT of the abdomen pelvis due to syncopal episode secondary to severe pain. Patient states all they did was give her a GI cocktail and not any pain medication . Patient was seen by her primary care doctor after the ER visit was given Amidon which she has been taking for the pain without any improvement of her symptoms. Patient has not had any vomiting but states she is having severe nausea. Review of Systems A 10 point review of systems is negative except as noted above. Medical and Surgical History: Reviewed and noted Social history: Lives at home Tobacco: Denies Physical Exam Vitals & Measurements T: 36.5 ?C(Oral) HR: 84(Peripheral) RR: 16 BP: 136/87 SpO2: 97% HT: 173 cm WT: 115.4 kg BMI: 38.56 General: Well developed, non toxic appearing, no acute distress HEENT: Head atraumatic, Mucosa moist, hearing grossly normal Neck: No JVD, tracheal deviation Cardiac: Regular rate, rhythm, no murmurs, or gallops, 2+ radial pulses Respiratory: Lungs clear to auscultation B/L, normal respiratory effort Abdomen: Soft, mild tenderness palpation of the epigastrium, no rebound or guarding, no peritoneal signs Extremities: No edema noted in the LE B/L, no tenderness to palpation Neurologic: Alert and oriented, speech clear Skin: No rashes or lesions Psych: Appropriate mood and behavior Medical Decision Making MEDICAL DECISION MAKING Number and Complexity of Problems Differential Diagnosis: [] [facility] Data External documents reviewed: [] My EKG interpretation: [] My CT interpretation: [] My X-ray interpretation: [] My Ultrasound interpretation: [] Decision rules/scores evaluated: [] Discussed with: [] Treatment and Disposition ED Course: Patient is a 28-year-old female presenting to the ED for evaluation of nausea, abdominal pain and gastroparesis. On record review review patient has multiple visits to outside facilities for similar complaints including a visit yesterday with negative CT imaging at that time. Do not believe CT imaging is warranted as patient's had numerous CTs this year which have been negative. Laboratory evaluation is obtained patient is given Reglan, Protonix, Bentyl, IV fluids. Patient's laboratory evaluation is unremarkable, patient continues to complain of nausea and abdominal pain is given Haldol and morphine. After this patient is feeling improved requesting discharge. She is discharged home with Carafate, Phenergan and Reglan. She follow-up with her primary care doctor in the next 2 to 3 days. She is return to the ED for any worsening symptoms. Shared decision making: [] Code status: [] Assessment/Plan Chronic abdominal pain (R10.9: Unspecified abdominal pain) Gastroparesis (K31.84: Gastroparesis) Other chronic pain (G89.29: Other chronic pain) Orders: dicyclomine, 20 mg = 2 mL, Injection, IntraMuscular, Once, Stop date 06/09/24 3:02:00 EDT, STAT, Start date 06/09/24 3:02:00 EDT, 06/09/24 3:02:00 EDT haloperidol, 5 mg = 1 mL, Injection, IntraMuscular, Once, Stop date 06/09/24 5:00:00 EDT, Routine, Start date 06/09/24 5:00:00 EDT, 06/09/24 4:19:00 EDT metoclopramide, 10 mg = 2 mL, Injection, IV Push, Once, Stop date 06/09/24 3:02:00 EDT, STAT, Start date 06/09/24 3:02:00 EDT, 06/09/24 3:02:00 EDT metoclopramide, 10 mg = 1 tab(s), Oral, q6hr, # 12 tab(s), Refills(s) 0, Pharmacy: [facility] [id number], 173, cm, 06/09/24 2:42:00 EDT, Height/Length Dosing, 115.4, kg, 06/09/24 2:42:00 EDT, Weight Dosing morphine, 4 mg = 1 mL, Injection, IV Push, Once, Stop date 06/09/24 4:11:00 EDT, STAT, Start date 06/09/24 4:11:00 EDT, 06/09/24 4:11:00 EDT pantoprazole, 40 mg = 10 mL, Injection, IV Push, Once, Stop date 06/09/24 3:02:00 EDT, STAT, Start date 06/09/24 3:02:00 EDT, 06/09/24 3:02:00 EDT promethazine, 25 mg = 1 supp, Rectal, q6hr, PRN Nausea/Vomiting, # 6 EA, Refills(s) 0, Pharmacy: [facility] [id number], 173, cm, 06/09/24 2:42:00 EDT, Height/Length Dosing, 115.4, kg, 06/09/24 2:42:00 EDT, Weight Dosing Sodium Chloride 0.9% intravenous solution, 1,000 mL, Soln-IV, IV, Once, Stop date 06/09/24 3:02:00 EDT, STAT, Start date 06/09/24 3:02:00 EDT, Infuse over 61, minute(s) sucralfate, 1 gm = 1 tab(s), Oral, QID, X 7 day(s), # 28 tab(s), Refills(s) 0, Pharmacy: [facility] [id number], 173, cm, (more content not included)... Normal [facility] Comment on above: Result Comment: Elec tronically Signed By: Chavo Squires DO\.br\Date and Time Signed: 06/09/24 05:27 EDT ED Patient Summaryon 024 ED Patient Summary ED Patient Summary [place] [id number] Patient Discharge Instructions Person Information Name: GAEL RUBY Age: 28 Years Arrival Date: 06/09/2024 02:27:27 Discharge Diagnosis: Chronic abdominal pain; Gastroparesis; Other chronic pain Primary Care Physician: YOSSI GOLDEN MD Provider Information Primary Provider: Chavo Squires DO [employer] Processor:None The exam and treatment you received in the Emergency Department were for an urgent problem and are not intended as complete care. It is important that you follow up with a doctor, nurse practitioner, or physician?s secretary administrative assistant for ongoing care. If your symptoms become worse or you do not improve as expected and you are unable to reach your usual health care provider, you should return to the Emergency Department. We are available 24 hours a day. GAEL RUBY has been given the following list of patient education materials, prescriptions and follow-up instructions: Follow-up Instructions: With: Address: When: YOSSI GOLDEN [address] [place], [place] [id number] [facility] (1) In 3 days 06/12/2024 Comments: You can use the nausea medication as prescribed as needed for nausea and vomiting. Please follow-up with your primary care doctor in the next 2 to 3 days for further evaluation and management. In the event that this physician does not participate in your insurance network, please consult with your insurance company to find a nearby participating provider. Patient Education Materials: Gastroparesis; Abdominal Pain, Adult, [id number]-[id number] A MESSAGE TO ALL PATIENTS REGARDING OPIOIDS PRESCRIPTION OPIOIDS: WHAT YOU NEED TO KNOW Prescription opioids can be used to help relieve bugahpas-db-evhdjt pain and are often prescribed following a surgery or injury, or for certain health conditions. These medications can be an important part of the treatment but also come with serious risks. It is important to work with your healthcare provider to make sure you are getting the safest, most effective care. WHAT ARE THE RISKS AND SIDE EFFECTS OF OPIOID USE? Prescription opioids carry serious risks of addiction and overdose, especially with prolonged use. An opioid overdose, often marked by slowed breathing, can cause sudden . The use of prescription opioids can have a number of side effects as well, even when taken as directed: ? Tolerance?meaning you might need to take more of the medication for the same pain relief ? Physical dependence?meaning you have symptoms of withdrawal when a medication is stopped ? Increased sensitivity to pain ? Constipation ? Nausea, vomiting, and dry mouth ? Sleepiness and dizziness ? Confusion ? Depression ? Low levels of testosterone that can result in lower sex drive, energy, and strength ? Itching and sweating RISKS ARE GREATER WITH: ? History of drug misuse, substance use disorder, or overdose ? Mental health conditions (such as depression or anxiety) ? Sleep apnea ? Older age (65 years and older) ? Avoid alcohol while taking prescription opioids. Also, unless specifically advised by your health care provider, medications to avoid include: ? Benzodiazepines (such as Xanax or Valium) ? Muscle relaxants (such as Soma or Flexeril) ? Hypnotics (such as Ambien or Lunesta) ? Other prescription opioids KNOW YOUR OPTIONS Talk to your health care provider about ways to manage your pain that don?t involve prescription opioids. Some of these options may actually work better and have fewer risks and side effects. Options may include: ? Pain relievers such as acetaminophen, ibuprofen, and naproxen ? Some medication that are also used for depression or seizures ? Physical therapy and exercise ? Cognitive behavioral therapy, a psychological, goal-directed approach, in which patients learn how to modify physical, behavioral, and emotional triggers of pain and stress. IF YOU ARE PRESCRIBED OPIOIDS FOR PAIN: ? Never take opioids in greater amounts or more often than prescribed. ? Follow up with your primary health care provider. o Work together to create a plan on how to manage your pain. o Talk about ways to help manage your pain that don?t involve prescription opioids. o Talk about any and all concerns and side effects. ? Help prevent misuse and abuse o Never sell or share prescription opioids. o Never use another person?s prescription opioids. ? Store prescription opioids in a secure place and out of reach of others (this may include visitors, children, friends, and family). ? Safely dispose of unused prescription opioids: Find your community drug take-back program or your pharmacy mail-back program, or flush them down the toilet, following guidance from the Food and Drug Administration (www.fda.gov/Drugs/Res ourcesForYou). (more content not included)... Normal [facility] HEMATOLOGYOrdered By: SYSTEM SYSTEM on 06-09-2024 Basophils/100 WBC (Bld) 0.5 % Normal 0.0 - 2.0 % Remisol Heme Basophils/Leukocytes Auto (Bld) [Pure # fraction] 0.0 E9/L Normal 0.0 - 0.2 E9/L Remisol Heme Eosinophils (Bld) [#/Vol] 0.3 E9/L Normal 0.0 - 0.5 E9/L Remisol Heme Eosinophils/100 WBC (Bld) 3.4 % Normal 0.0 - 8.0 % Remisol Heme Erythrocyte distribution width (RBC) [Ratio] 13.5 % Normal 10.9 - 14.2 % Remisol Heme Hematocrit (Bld) [Volume fraction] 38.2 % Normal 34.0 - 46.0 % Remisol Heme Hemoglobin (Bld) [Mass/Vol] 13.0 g/dL Normal 12.0 - 16.0 gm/dL Remisol Heme Lymphocytes (Bld) [#/Vol] 3.0 E9/L Normal 1.0 - 4.0 E9/L Remisol Heme Lymphocytes/100 WBC (Bld) 41.1 % Normal 14.0 - 50.0 % Remisol Heme MCH (RBC) [Entitic mass] 30.5 pg Normal 27.0 - 34.0 pg Remisol Heme MCHC (RBC) [Mass/Vol] 34.1 g/dL Normal 31.4 - 36.0 gm/dL Remisol Heme MCV (RBC) [Entitic vol] 89.4 fL Normal 80.0 - 100.0 fL Remisol Heme Monocytes (Bld) [#/Vol] 0.5 E9/L Normal 0.2 - 1.0 E9/L Remisol Heme Monocytes/100 WBC (Bld) 6.5 % Normal 4.0 - 14.0 % Remisol Heme Neutrophils (Bld) [#/Vol] 3.6 E9/L Normal 2.0 - 7.5 E9/L Remisol Heme Neutrophils/100 WBC (Bld) 48.5 % Normal 36.0 - 75.0 % Remisol Heme Platelet mean volume (Bld) [Entitic vol] 8.5 fL Normal 6.4 - 10.8 fL Remisol Heme Platelets (Bld) [#/Vol] 267.0 E9/L Normal 150.0 - 500.0 E9/L Remisol Heme RBC (Bld) [#/Vol] 4.3 E12/L Normal 4.3 - 5.9 E12/L Remisol Heme WBC corrected for nucl RBC Auto (Bld) [#/Vol] 7.4 E9/L Normal 4.0 - 11.0 E9/L Remisol Heme Hep Func Panelon 06-09-2024 Albumin [Mass/Vol] 3.8 g/dL Normal 3.3-5.0 [facility] Comment on above: Performed By: #### 2 [id number] #### [facility] [address] [place] [address] Albumin/Globulin (S) [Mass conc ratio] 1.4 Normal 1.1-2.2 [facility] Comment on above: Performed By: #### 2 [id number] #### [facility] [address] [place] [address] ALP [Catalytic activity/Vol] 87 Int._Unit/L Normal 21-98 [facility] Comment on above: Performed By: #### 2 [id number] #### [facility] [address] [place] [address] ALT No additional P-5'-P [Catalytic activity/Vol] 40 Int._Unit/L Normal 6-46 [facility] Comment on above: Performed By: #### 2 [id number] #### [facility] [address] [place] [address] AST [Catalytic activity/Vol] 31 Int._Unit/L Normal 5-43 [facility] Comment on above: Performed By: #### 2 [id number] #### [facility] [address] [place] [address] Bilirubin [Mass/Vol] 0.3 mg/dL Normal 0.0-1.1 [facility] Comment on above: Performed By: #### 2 [id number] #### [facility] [address] [place] [address] Bilirubin.direct [Mass/Vol] 0.0 mg/dL Normal 0.0-0.4 [facility] Comment on above: Performed By: #### 2 [id number] #### [facility] [address] [place] [address] Bilirubin.indirect [Mass or moles/Vol] 0.3 mg/dL Normal 0.1-0.9 [facility] Comment on above: Performed By: #### 2 [id number] #### [facility] [address] [place] [address] Globulin (S) [Mass/Vol] 2.7 g/dL Normal 1.4-4.0 [facility] Comment on above: Performed By: #### 2 [id number] #### [facility] [address] [place] [address] Protein [Mass/Vol] 6.5 g/dL Normal 6.0-7.8 [facility] Comment on above: Performed By: #### 2 [id number] #### [facility] [address] [place] [address] Lipase Levelon 06-09-2024 Lipase [Catalytic activity/Vol] 89 U/L High 13-58 [facility] Comment on above: Performed By: #### 2 [id number] #### [facility] [address] [place] [address] SEROLOGYOrdered By: Segundo benito on 06-09-2024 Beta HCG ( test) Ql Negative (06/09/24 3:09 AM) Normal [facility] Man Sero UA with Cult Rflxon 06-09-20 24 Bilirubin Ql (U) Negative Normal Negative [facility] Comment on above: Performed By: #### 4 [id number] #### [facility] [address] [place] [address] Clarity (U) Clear Normal Clear [facility] Comment on above: Performed By: #### 4 [id number] #### [facility] [address] [place] [address] Color (U) Yellow Normal Yellow [facility] Comment on above: Result Comment: Micr oscopic readings are only performed on those samples that meet specific criteria set forth by [facility]. Performed By: #### 4 [id number] #### [facility] [address] [place] [address] Glucose Ql (U) Negative Normal Negative [facility] Comment on above: Performed By: #### 4 [id number] #### [facility] [address] [place] [address] Hemoglobin Auto test strip (U) [Mass/Vol] Negative Normal Negative [facility] Comment on above: Performed By: #### 4 [id number] #### [facility] [address] [place] [address] Ketones Auto test strip Ql (U) Negative Normal Negative [facility] Comment on above: Performed By: #### 4 [id number] #### [facility] [address] [place] [address] Leukocyte esterase Auto test strip Ql (U) Negative Normal Negative [facility] Comment on above: Performed By: #### 4 [id number] #### [facility] [address] [place] [address] Nitrite Auto test strip Ql (U) Negative Normal Negative [facility] Comment on above: Performed By: #### 4 [id number] #### [facility] [address] [place] [address] pH (U) 5.5 [pH] Invalid Interpretation Code 5.0-9.0 [facility] Comment on above: Performed By: #### 4 [id number] #### [facility] [address] [place] [address] Protein Ql (U) Trace Abnormal Negative [facility] Comment on above: Performed By: #### 4 [id number] #### [facility] [address] [place] [address] Specific gravity (U) [Rel density] 1.031 Invalid Interpretation Code 1.005-1.030 [facility] Comment on above: Performed By: #### 4 [id number] #### [facility] [address] [place] [address] Urobilinogen (U) [Mass/Vol] 2 mg/dL Abnormal Negative [facility] Comment on above: Performed By: #### 4 [id number] #### [facility] [address] [place] [address] Type of Urine collection method Clean Catch Normal [facility] Comment on above: Performed By: #### 4 [id number] #### [facility] [address] [place] [address] URINALYSISOrdered By: SYSTEM SYSTEM on 06-09-2024 Bilirubin Ql (U) Negative Normal Negativemg/ dL [facility] UA Auto SS Clarity (U) Clear (06/09/24 3:34 AM) Normal Clear [facility] UA Auto SS Color (U) Yellow 1 (06/09/24 3:34 AM) Normal Yellow [facility] UA Auto SS Comment on above: Interpretive Data: M icroscopic readings are only performed on those samples that meet specific criteria set forth by [facility]. Glucose Ql (U) Negative Normal Negativemg/ dL [facility] UA Auto SS Hemoglobin Auto test strip (U) [Mass/Vol] Negative Normal Negativemg/ dL [facility] UA Auto SS Ketones Auto test strip Ql (U) Negative Normal Negativemg/ dL [facility] UA Auto SS Leukocyte esterase Auto test strip Ql (U) Negative Normal NegativeLeu /uL [facility] UA Auto SS Nitrite Auto test strip Ql (U) Negative Normal Negativemg/ dL [facility] UA Auto SS pH (U) 5.5 *NA* (06/09/24 3:34 AM) Invalid Interpretation Code 5.0 - 9.0 [facility] UA Auto SS Protein Ql (U) Trace mg/dL Invalid Interpretation Code Negativemg/ dL [facility] UA Auto SS Specific gravity (U) [Rel density] 1.031 *NA* (06/09/24 3:34 AM) Invalid Interpretation Code 1.005 - 1.030 [facility] UA Auto SS Urobilinogen (U) [Mass/Vol] 2 mg/dL Invalid Interpretation Code Negativemg/ dL [facility] [facility] UA Auto SS URINALYSISOrdered By: Che Squires on 06-09-2024 UA Spec Desc Clean Catch (06/09/24 3:34 AM) Normal [facility] UA Auto SS eGFRon 06-09-2024 eGFR 119 mL/min/1.73 m2 Normal >=59 [facility] Comment on above: Order Comment: Order added by Discern Expert. Performed By: #### 1 [id number] #### [facility] [address] [place] [address] CBC with Diffon 06-08-2024 Abs. Basophil 0.04 k/uL Normal 0.00-0.20 [facility] Comment on above: Performed By: #### C P, LIP, CDP ####[address] [place], [place] [id number] Lab Director: Murtaza Arceo MD Abs.Imm.Granulocyte 0.03 k/uL Normal 0.00-0.30 [facility] Comment on above: Performed By: #### C P, LIP, CDP ####[address] [place], [place] [id number] Lab Director: Murtaza Arceo MD Abs.Neutrophil (Seg) 5.16 k/uL Normal 1.50-8.10 [facility] Comment on above: Performed By: #### C P, LIP, CDP ####[address] [place] [address] Lab Director: Murtaza Arceo MD Basophils/100 WBC (Bld) 1 % Normal 0-2 [facility] Comment on above: Performed By: #### C P, LIP, CDP ####[address] , [facility] Director: Murtaza Arceo MD Eosinophils (Bld) [#/Vol] 0.20 10*3/uL Normal 0.00-0.44 [facility] Comment on above: Performed By: #### C P, LIP, CDP ####[address] , [facility] Lab Director: Murtaza Arceo MD Eosinophils/100 WBC (Bld) 2 % Normal 1-4 [facility] Comment on above: Performed By: #### C P, LIP, CDP ####[address] [place] [address] Lab Director: Murtaza Arceo MD Erythrocyte distribution width (RBC) [Ratio] 12.8 % Normal 11.8-14.4 [facility] Comment on above: Performed By: #### C P, LIP, CDP ####[address] , [place] [address])[phone] Director: Murtaza Arceo MD Hematocrit (Bld) [Volume fraction] 45.0 % Normal 36.3-47.1 [facility] Comment on above: Performed By: #### C P, LIP, CDP ####[address] , [facility] Lab Director: Murtaza Arceo MD Hemoglobin (Bld) [Mass/Vol] 14.7 g/dL Normal 11.9-15.1 [facility] Comment on above: Performed By: #### C P, LIP, CDP ####[address] , [facility] Lab Director: Murtaza Arceo MD Immature granulocytes/100 WBC (Bld) 0 % Normal 0 [facility] Comment on above: Performed By: #### C P, LIP, CDP ####[address] , [facility] Lab Director: Murtaza Arceo MD Lymphocytes (Bld) [#/Vol] 2.31 10*3/uL Normal 1.10-3.70 [facility] Comment on above: Performed By: #### C P, LIP, CDP ####[address] [place] [address] Lab Director: Murtaza Arceo MD Lymphocytes/100 WBC (Bld) 28 % Normal 24-43 [facility] Comment on above: Performed By: #### C P, LIP, CDP ####[address] , [place] [phone] Director: Murtaza Arceo MD MCH (RBC) [Entitic mass] 29.5 pg Normal 25.2-33.5 [facility] Comment on above: Performed By: #### C P, LIP, CDP ####[address] , [facility]83[facility])[phone] Director: Murtaza Arceo MD MCHC (RBC) [Mass/Vol] 32.7 g/dL Normal 28.4-34.8 [facility] Comment on above: Performed By: #### C P, LIP, CDP ####[address] [place] [address] Lab Director: Murtaza Arceo MD MCV (RBC) [Entitic vol] 90.4 fL Normal 82.6-102.9 [facility] Comment on above: Performed By: #### C P, LIP, CDP ####[address] , [place] [phone] Director: Murtaza Arceo MD Monocytes (Bld) [#/Vol] 0.43 10*3/uL Normal 0.10-1.20 [facility] Comment on above: Performed By: #### C P, LIP, CDP ####[address] [place] [address] Lab Director: Murtaza Arceo MD Monocytes/100 WBC (Bld) 5 % Normal 3-12 [facility] Comment on above: Performed By: #### C P, LIP, CDP ####[address] [place] [address] Lab Director: Murtaza Arceo MD Neutrophil (Seg) 64 % Normal 36-65 [facility] Comment on above: Performed By: #### C P, LIP, CDP ####[address] [place] [address] Lab Director: Murtaza Arceo MD NRBC Automated 0.0 per 100 WBC Normal 0.0 [facility] Comment on above: Performed By: #### C P, LIP, CDP ####[address] , [place] 3662983 Lab Director: Murtaza Arceo MD Platelet mean volume (Bld) [Entitic vol] 10.6 fL Normal 8.1-13.5 [facility] Comment on above: Performed By: #### C P, LIP, CDP ####[address] [place] [address] Lab Director: Murtaza Arceo MD Platelets (Bld) [#/Vol] 283 10*3/uL Normal 138-453 [facility] Comment on above: Performed By: #### C P, LIP, CDP ####[address] [place] [address] Lab Director: Murtaza Arceo MD RBC (Bld) [#/Vol] 4.98 10*6/uL Normal 3.95-5.11 [facility] Comment on above: Performed By: #### C P, LIP, CDP ####[address] , [place] [address] Lab Director: Murtaza Arceo MD WBC (Bld) [#/Vol] 8.2 10*3/uL Normal 3.5-11.3 [facility] Comment on above: Performed By: #### C P, LIP, CDP ####[facility] , [place] [id number] Lab Director: Murtaza Arceo MD CT ABDOMEN PELVIS W IV CONTR [place] 06-08-2024 CT ABDOMEN PELVIS W IV CONTRAST Normal [facility] CT HEAD WO CONTRASTon 2023 CT HEAD WO CONTRAST Normal [facility] Comp Metabolic Profon 2023 Albumin [Mass/Vol] 4.4 g/dL Normal 3.5-5.2 [facility] Comment on above: Performed By: #### C P, LIP, CDP ####[address] , [place] 3323783 Lab Director: Murtaza Arceo MD Albumin/Glob Ratio 1.3 Normal 1.0-2.5 [facility] Comment on above: Performed By: #### C P, LIP, CDP ####[address] [place] [address] Lab Director: Murtaza Arceo MD Alkaline Phos 116 U/L High 35-104 [facility] Comment on above: Performed By: #### C P, LIP, CDP ####[address] [place] [address] Lab Director: Murtaza Arceo MD ALT [Catalytic activity/Vol] 51 U/L High 10-35 [facility] Comment on above: Performed By: #### C P, LIP, CDP ####[address] [place] [address] Lab Director: Murtaza Arceo MD Anion gap [Moles/Vol] 11 mmol/L Normal 9-16 [facility] Comment on above: Performed By: #### C P, LIP, CDP ####[address] [place] [address] Lab Director: Murtaza Arceo MD AST [Catalytic activity/Vol] 47 U/L High 10-35 [facility] Comment on above: Performed By: #### C P, LIP, CDP ####[address] , [place] 39[address]83 lab Director: Murtaza Arceo MD Bilirubin [Mass/Vol] 0.3 mg/dL Normal 0.00-1.20 [facility] Comment on above: Performed By: #### C P, LIP, CDP ####[address] , [place] 957[address]83 lab Director: Murtaza Arceo MD BUN/CRE Ratio 17 Normal 9-20 [facility] Comment on above: Performed By: #### C P, LIP, CDP ####[address] , [place] 575[address]83 Lab Director: Murtaza Arceo MD Calcium [Mass/Vol] 9.8 mg/dL Normal 8.6-10.4 [facility] Comment on above: Performed By: #### C P, LIP, CDP ####[address] , [place] 947[address]83 Lab Director: Murtaza Arceo MD Chloride [Moles/Vol] 104 mmol/L Normal 98-107 [facility] Comment on above: Performed By: #### C P, LIP, CDP ####[address] , [place] 38[address] lab Director: Murtaza Arceo MD CO2 [Moles/Vol] 25 mmol/L Normal 20-31 [facility] Comment on above: Performed By: #### C P, LIP, CDP ####[address] , [place] 373[address]83 lab Director: Murtaza Arceo MD Creatinine [Mass/Vol] 0.6 mg/dL Normal 0.50-0.90 [facility] Comment on above: Performed By: #### C P, LIP, CDP ####[address] , [place] 823[address]3 Lab Director: Murtaza Arceo MD GFR/1.73 sq M.predicted among non-blacks MDRD (S/P/Bld) [Vol rate/Area] mL/min/{1.73_m2} Normal >60 [facility] Comment on above: Result Comment: Thes [...] Performed By: #### C P, LIP, CDP ####[address] , [place] 3944783 Lab Director: Murtaza Arceo MD Glucose [Mass/Vol] 171 mg/dL High 74-99 [facility] Comment on above: Performed By: #### C P LIP, CDP ####[address] , [place] 7850483 Lab Director: Murtaza Arceo MD Potassium [Moles/Vol] 4.4 mmol/L Normal 3.7-5.3 [facility] Comment on above: Performed By: #### C P, LIP, CDP ####[address] , [place] 2687[address] Lab Director: Murtaza Arceo MD Protein [Mass/Vol] 7.7 g/dL Normal 6.6-8.7 [facility] Comment on above: Performed By: #### C P, LIP, CDP ####[address] , [place] 2100583 Lab Director: Murtaza Arceo MD Sodium [Moles/Vol] 140 mmol/L Normal 136-145 [facility] Comment on above: Performed By: #### C P, LIP, CDP ####[facility] , [place] 119[address]83 [facility] Director: Murtaza Arceo MD Urea nitrogen [Mass/Vol] 10 mg/dL Normal 6-20 [facility] Comment on above: Performed By: #### C P, LIP, CDP ####[facility] , [place] 594[address]83 lab Director: Murtaza Arceo MD Lactic Acidon 06-08-2024 Lactate [Moles/Vol] 1.8 mmol/L Normal 0.5-2.2 [facility] Comment on above: Performed By: #### L ACTIC ####[facility] , [place] 1306583 lab Director: Murtaza Arceo MD Lipaseon 06-08-2024 Lipase [Catalytic activity/Vol] 72 U/L High 13-60 [facility] Comment on above: Performed By: #### C P, LIP, CDP ####[facility] , [facility] lab Director: Murtaza Arceo MD Ambulatory Visit Summaryon 0 06-01-2024 Ambulatory Visit Summary Ambulatory Visit Summary GAEL RUBY Michelle :1995 Visit Date:06/01/2024 Ambulatory Visit Instructions Your Diagnosis Gastroparesis Fatty liver Diabetes mellitus Acute constipation Your Care Team Attending Physician - Beto GREWAL, Aly Whitten Primary Care Physician - YOSSI GOLDEN MD This Is Your Medications List ondansetron (Zofran 4 mg Tab) promethazine (Phenergan 25 mg Supp) Contact prescribing physician if questions or concerns albuterol (Albuterol (Eqv-ProAir HFA) 90 mcg/inh inhalation aerosol) dulaglutide (Trulicity Pen 1.5 mg/0.5 mL subcutaneous solution) glipiZIDE (glipiZIDE 10 mg Tab) hydrOXYzine (hydrOXYzine hydrochloride 25 mg Tab) hyoscyamine (hyoscyamine 0.375 mg ER Tab) ibuprofen insulin glargine (Lantus 100 units/mL Injection-Insulin) nicotine (nicotine 21 mg-14 mg-7 mg transdermal film, extended release) pantoprazole (Pantoprazole [address] Tab) promethazine (Phenergan 12.5 mg Supp) sertraline (sertraline 100 mg Tab) tizanidine (Zanaflex) tizanidine (tiZANidine 4 mg Tab) [Image Removed: STOP]Stop taking these medications metoclopramide (Reglan 10 mg Tab) Procedures Performed section (2017), section (2015), Bilateral oophorectomy, section, Cholecystectomy, Extraction of wisdom tooth, Laparoscopic hysterectomy, Laparoscopy, Tear duct, Tonsillectomy. Discharge Vitals Heart Rate (Peripheral) 70 Respiratory Rate 16 Blood Pressure 137/95 Height 68 in Height 173 cm Weight 244.2 lb Weight 111 kg BMI 37.09 What to do next Scheduled Follow-Up Appointments 2023 10:30 AM EDT Where: [facility] Medications What How Much When Instructions New ondansetron (Zofran 4 mg Tab) 1 Tablets By Mouth Every 8 hours as needed for Nausea/Vomiting Refills: 6 Pickup at [facility] [phone] New promethazine (Phenergan 25 mg Supp) 1 Suppositories By rectum Every 12 hours as needed for Nausea/Vomiting Refills: 6 Pickup at [facility] [phone] Unchanged albuterol (Albuterol (Eqv-ProAir HFA) 90 mcg/ inh inhalation aerosol) 2 Puffs Inhalation Every 4 hours as needed for Wheezing Contact prescribing physician if questions or concerns Unchanged dulaglutide (Trulicity Pen 1.5 mg/ 0.5 mL subcutaneous solution) 1.5 Milligram Subcutaneous Every week Contact prescribing physician if questions or concerns Unchanged glipiZIDE (glipiZIDE 10 mg Tab) 1 Tablets By Mouth 2 times a day Contact prescribing physician if questions or concerns Unchanged hydrOXYzine (hydrOXYzine hydrochloride 25 mg Tab) 1 Tablets By Mouth Every 6 hours as needed for as needed for anxiety Contact prescribing physician if questions or concerns Unchanged hyoscyamine (hyoscyamine 0.375 mg ER Tab) 1 Tablets By Mouth At bedtime Contact prescribing physician if questions or concerns Unchanged ibuprofen Contact prescribing physician if questions or concerns Unchanged insulin glargine (Lantus 100 units/ mL Injection-Insulin) 30 Units Subcutaneous Once a day (at bedtime) Contact prescribing physician if questions or concerns Unchanged nicotine (nicotine 21 mg-14 mg-7 mg transdermal film, extended release) 1 Patches Transdermal At noon Duration: 28 Days Contact prescribing physician if questions or concerns Unchanged pantoprazole (Pantoprazole [address] Tab) 1 Tablets By Mouth 2 times a day Contact prescribing physician if questions or concerns Unchanged promethazine (Phenergan 12.5 mg Supp) 1 Suppositories By rectum Every 4 hours as needed for Nausea/Vomiting If zofran is ineffective Contact prescribing physician if questions or concerns Unchanged sertraline (sertraline 100 mg Tab) 1 Tablets By Mouth Every day Contact prescribing physician if questions or concerns Unchanged tizanidine (tiZANidine 4 mg Tab) 1 Tablets By Mouth 3 times a day Contact prescribing physician if questions or concerns Unchanged tizanidine (Zanaflex) By Mouth Contact prescribing physician if questions or concerns Pharmacy Information [facility] [id number]: [address], [place] [phone] What How Much When Why Comments Stop Taking metoclopramide (Reglan 10 mg Tab) 1 Tablets By Mouth 4 times a day as needed for Other (see comment) Gastroparesis Duration: 14 Days Stop dosing for any side effect symptoms - refer to hand out given to you Allergies Eggs (Abdominal pain) Kiwi (unk) Latex (Itching) Pyridium (unk) amoxicillin (Rash, Nausea and vomiting) ketorolac (Itching, Dyspnea) meperidine (Itching, Dyspnea) traMADol (Unknown) Problems Ongoing - Any problem that you are currently receiving treatment for. Abdominal pain, periumbilical Acute pancreatitis Bilateral lower extremity edema BMI 37.0-37.9, adult Cholangiectasis Cyst of right ovary Depression Diabetes Diarrhea Dysphagia Endometriosis (clinical) Essential hypertension Factor V Leiden Frequent loose stools GA (more content not included)... Normal [facility] Gastroenterology Office/Clin ic Noteon 06-01-2024 Gastroenterology Office/Clinic Note Gastroenterology Office/Clinic Note Chief Complaint follow up inpatient HPI Staff Patient is a(n) 28 year old female who presents today for a f/u from inpatient stay 05/24/24 for gastroparesis. Denies blood thinners. Takes Trulicity weekly. Reglan working well? Not working. Dr. Beverly consulted 05/23/24: Impression and Plan This is a 28-year-old lady with past medical history of IDDM, morbid obesity, reported gastroparesis, who presented to the ED with abdominal pain, nausea and vomiting. She reports that the symptoms been going on for about a month, reports soft stools Per reports she presented multiple times to local ERs without admissions Has a gastric emptying study done 05/19/24 that showed severe delayed emptying She had EGD and colonoscopy with Dr. Gardner in [place] December 26, 2022: Reported distal esophagitis and small hiatal hernia, diagnostic colonoscopy was also within normal limits per report Labs upon admission showed unremarkable CBC, CMP showed alk phos 100, lipase 111, otherwise unremarkable CMP A1c last month was 9.8 No abdominal imaging on admission #Nausea and vomiting likely secondary to severe gastroparesis, uncontrolled IDDM (a1c 9.8 recently) # Given the minimal elevation in lipase, cannot rule out also acute gastroenteritis No signs of GI bleeding, no urgent need for endoscopy Recommendations -Supportive care with Zofran before meals -Reglan before meals 10 mg 4 times daily AC as needed -Minimize/avoid of narcotics and anticholinergics as much as possible -If any diarrhea please obtain stool studies -Ordered CT abdomen pelvis with contrast -GI will follow [facility] 05/14/24 @ [facility]: IMPRESSION: Severely delayed gastric emptying. FINDINGS: The gastric emptying were calculated as follows: At 60 min, there is 12% emptying of the stomach. At 120 min, there is 14% emptying of the stomach. At 240 min, there is 37% emptying of the stomach. No significant esophageal retention, hiatal hernia or reflux was observed. CT abd 05/23/24: IMPRESSION: No acute process in the abdomen/pelvis. EGD/Colon 12/26/22 w/Dr. Gardner @ [facility]: POSTOPERATIVE DIAGNOSIS: Small sliding type hiatal hernia, distal esophagitis and bile reflux, normal colon. Laboratory Results CBC CMP Basophil Absolute: 0.1 E9/L (05/22/24) A/G Ratio: 1.3 (05/22/24) Basophil Auto: 0.8 % (05/22/24) AGAP: 10 mEq/L (05/24/24) Eos Absolute: 0.3 E9/L (05/22/24) Albumin Lvl: 4.5 gm/dL (05/22/24) Eos Auto: 2.3 % (05/22/24) Alk Phos: 100 Int._Unit/L High (05/22/24) Hct: 42.9 % (05/22/24) ALT: 46 Int._Unit/L (05/22/24) HGB: 14.7 gm/dL (05/22/24) AST: 34 Int._Unit/L (05/22/24) Lymph Absolute: 4.6 E9/L High (05/22/24) Bili Total: 0.5 mg/dL (05/22/24) Lymph Auto: 39.5 % (05/22/24) BUN: 11 mg/dL (05/22/24) MCH: 30.3 pg (05/22/24) BUN/Creat Ratio: 16 (05/22/24) MCHC: 34.2 gm/dL (05/22/24) Calcium Lvl: 9.7 mg/dL (05/22/24) MCV: 88.6 fL (05/22/24) Chloride: 108 mmol/L (05/24/24) [place] Absolute: 0.6 E9/L (05/22/24) CO2: 26 mmol/L (05/24/24) [place] Auto: 5.3 % (05/22/24) Creatinine: 0.7 mg/dL (05/22/24) MPV: 8.6 fL (05/22/24) Globulin: 3.5 gm/dL (05/22/24) Neutro Absolute: 6.1 E9/L (05/22/24) Glucose Lvl: 136 mg/dL (05/22/24) Neutro Auto: 52.1 % (05/22/24) Potassium Lvl: 4.2 mmol/L (05/24/24) Platelet: 308 E9/L (05/22/24) Sodium Lvl: 140 mmol/L (05/24/24) RBC: 4.8 E12/L (05/22/24) Total Protein: 8 gm/dL High (05/22/24) RDW: 13.7 % (05/22/24) WBC: 6.3 E9/L (05/24/24) History of Present Illness Improved since discharge from the hospital, now making a lot of food and a smoothie for Review of Systems PHQ Score Initial Depression Screen Score: 0 SCORE Physical Exam Vitals & Measurements HR: 70(Peripheral) RR: 16 BP: 137/95 HT: 68 in HT: 173 cm WT: 111 kg WT: 244.2 lb BMI: 37.09 Assessment/Plan 1. Gastroparesis (K31.84: Gastroparesis) Gastric emptying study in April will currently showed 37% after 4 hours Symptoms improved with Zofran and Phenergan more than Reglan Will refill Zofran and Phenergan suppositories as needed we discussed side effects as well, avoid Reglan given she is florinda use Phenergan Also discussed possible side effects of Phenergan and hydroxyzine, she only takes it very rarely when she travels, advised not to take them together If symptoms worsen in the future we will consider Motegrity, currently not constipated, but in the hospital after leaving the hospital she was constipated likely due to not moving and using narcotics If needed we can refer to Dr. Gastelum at [facility] for evaluation of Kunal PIEDRA She is currently on Trulicity, started a year ago, she is not sure if her symptoms worsened since then, if we cannot control her symptoms it is reasonable to discuss with primary care doctor considering different therapy like Mounjaro or Ozempic to see if it is better tolerated of that class of medicine is needed Ordered: Fibroscan (Hospital Procedure) 2. (more content not included)... Normal [facility] Comment on above: Result Comment: Elec tronically Signed By: Beto GREWAL, Aly Whitten\.br\Date and Time Signed: 06/01/24 10:17 EDT CBC with Auto Differentialon 05-26-2024 Basophils (Bld) [#/Vol] 0.06 10*3/uL Lev[facility] Basophils/100 WBC (Bld) 1 % 0 - 2 % [facility] Eosinophils (Bld) [#/Vol] 0.24 10*3/uL [facility] Eosinophils/100 WBC (Bld) 3 % 1 - 4 % [facility] Erythrocyte distribution width (RBC) [Ratio] 12.8 % 11.8 - 14.4 % [facility] Hematocrit (Bld) [Volume fraction] 44.9 % 36.3 - 47.1 % [facility] Hemoglobin (Bld) [Mass/Vol] 14.8 g/dL 11.9 - 15.1 g/dL [facility] Immature granulocytes (Bld) [#/Vol] 0.03 10*3/uL [facility] Immature granulocytes/100 WBC (Bld) 0 % 0 [facility] Lymphocytes/100 WBC (Bld) 37 % 24 - 43 % [facility] Lymphocytes/100 WBC (Bld) 3.59 % [facility] MCH (RBC) [Entitic mass] 29.7 pg 25.2 - 33.5 pg [facility] MCHC (RBC) [Mass/Vol] 33.0 g/dL 28.4 - 34.8 g/dL [facility] MCV (RBC) [Entitic vol] 90.2 fL 82.6 - 102.9 fL [facility] Monocytes/100 WBC (Bld) 5 % 3 - 12 % [facility] Monocytes/100 WBC (Bld) 0.47 % [facility] Neutrophils/100 WBC (Bld) 54 % 36 - 65 % [facility] Nucleated RBC/100 WBC (Bld) [Ratio] 0.0 % 0.0 per 100 WBC [facility] Platelet mean volume (Bld) [Entitic vol] 11.1 fL 8.1 - 13.5 fL [facility] Platelets (Bld) [#/Vol] 313 10*3/uL [facility] RBC (Bld) [#/Vol] 4.98 10*6/uL 3.95 - 5.1 1 m/uL [facility] Segmented neutrophils/100 WBC (Bld) 5.34 % [facility] WBC other (Bld) [#/Vol] 9.7 [facility] CBC with Diffon 05-26-2024 Abs. Basophil 0.06 k/uL Normal 0.00-0.20 [facility] Comment on above: Performed By: #### C DP, CP, LIP #### [address] [address] Safemaker: Rishabh Mendieta MD Abs.Imm.Granulocyte 0.03 k/uL Normal 0.00-0.30 [facility] Comment on above: Performed By: #### C DP, CP, LIP #### [place] [address] Safemaker: Rishabh Mendieta MD Abs.Neutrophil (Seg) 5.34 k/uL Normal 1.50-8.10 [facility] Comment on above: Performed By: #### C DP, CP, LIP #### [facility] [email or web address] [address] [place] [address] Safemaker: Rishabh Mendieta MD Basophils/100 WBC (Bld) 1 % Normal 0-2 [facility] Comment on above: Performed By: #### C DP, CP, LIP #### [place] [address] Safemaker: Rishabh Mendieta MD Eosinophils (Bld) [#/Vol] 0.24 10*3/uL Normal 0.00-0.44 [facility] Comment on above: Performed By: #### C DP, CP, LIP #### [place] [address] Safemaker: Rishabh Mendieta MD Eosinophils/100 WBC (Bld) 3 % Normal 1-4 [facility] Comment on above: Performed By: #### C DP, CP, LIP #### [place] [address] Safemaker: Rishabh Mendieta MD Erythrocyte distribution width (RBC) [Ratio] 12.8 % Normal 11.8-14.4 [facility] Comment on above: Performed By: #### C DP, CP, LIP #### [address] [address] Safemaker: Rishabh Mendieta MD Hematocrit (Bld) [Volume fraction] 44.9 % Normal 36.3-47.1 [facility] Comment on above: Performed By: #### C DP, CP, LIP #### [address] [address] Safemaker: Rishabh Mendieta MD Hemoglobin (Bld) [Mass/Vol] 14.8 g/dL Normal 11.9-15.1 [facility] Comment on above: Performed By: #### C DP, CP, LIP #### [address] [address] Safemaker: Rishabh Mendieta MD Immature granulocytes/100 WBC (Bld) 0 % Normal 0 [facility] Comment on above: Performed By: #### C DP, CP, LIP #### [address] [address] Safemaker: Rishabh Mendieta MD Lymphocytes (Bld) [#/Vol] 3.59 10*3/uL Normal 1.10-3.70 [facility] Comment on above: Performed By: #### C DP, CP, LIP #### [address] [address] Safemaker: Rishabh Mendieta MD Lymphocytes/100 WBC (Bld) 37 % Normal 24-43 [facility] Comment on above: Performed By: #### C DP, CP, LIP #### [address] [address] Safemaker: Rishabh Mendieta MD MCH (RBC) [Entitic mass] 29.7 pg Normal 25.2-33.5 [facility] Comment on above: Performed By: #### C DP, CP, LIP #### [address] [address] Safemaker: Rishabh Mendieta MD MCHC (RBC) [Mass/Vol] 33.0 g/dL Normal 28.4-34.[address] [facility] Comment on above: Performed By: #### C DP, CP, LIP #### [address] [address] Safemaker: Rishabh Mendieta MD MCV (RBC) [Entitic vol] 90.2 fL Normal 82.6-102.9 [facility] Comment on above: Performed By: #### C DP, CP, LIP #### [address] [address] Safemaker: Rishabh Mendieta MD Monocytes (Bld) [#/Vol] 0.47 10*3/uL Normal 0.10-1.20 [facility] Comment on above: Performed By: #### C DP, CP, LIP #### [place] [address] Safemaker: Rishabh Mendieta MD Monocytes/100 WBC (Bld) 5 % Normal 3-12 [facility] Comment on above: Performed By: #### C DP, CP, LIP #### [address] [address] Safemaker: Rishabh Mendieta MD Neutrophil (Seg) 54 % Normal 36-65 [facility] Comment on above: Performed By: #### C DP, CP, LIP #### [address] [address] Safemaker: Rishabh Mendieta MD NRBC Automated 0.0 per 100 WBC Normal 0.0 [facility] Comment on above: Performed By: #### C DP, CP, LIP #### [address] [address] Safemaker: Rishabh Mendieta MD Platelet mean volume (Bld) [Entitic vol] 11.1 fL Normal 8.1-13.5 [facility] Comment on above: Performed By: #### C DP CP, LIP #### [facility] [address] [place] [address] Safemaker: Rishabh Mendieta MD Platelets (Bld) [#/Vol] 313 10*3/uL Normal 138-453 [facility] Comment on above: Performed By: #### C DP CP, LIP #### [facility] [address] [place] [address] Safemaker: Rishabh Mendieta MD RBC (Bld) [#/Vol] 4.98 10*6/uL Normal 3.95-5.11 [facility] Comment on above: Performed By: #### C VENKAT CP, LIP #### [facility] [email or web address] [facility] [place] [address] Safemaker: Rishabh Mendieta MD WBC (Bld) [#/Vol] 9.7 10*3/uL Normal 3.5-11.3 [facility] Comment on above: Performed By: #### C VENKAT CP, LIP #### [facility] [place] [address] Safemaker: Rishabh Mendieta MD [facility] Albumin [Mass/Vol] 4.8 g/dL 3.5 - 5.2 g/dL [facility] Albumin/Globulin [Mass ratio] 1.0 {ratio} 1.0 - 2.5 [facility] ALP [Catalytic activity/Vol] 112 U/L High 35 - 104 U/L [facility] ALT [Catalytic activity/Vol] 52 U/L High 10 - 35 U/L [facility] Anion gap [Moles/Vol] 13 mmol/L 9 - 16 mmol/L [facility] AST [Catalytic activity/Vol] 52 U/L High 10 - 35 U/L [facility] Bilirubin [Mass/Vol] 0.4 mg/dL 0.00 - 1.20 mg/dL [facility] Calcium [Mass/Vol] 10.5 mg/dL High 8.6 - 10. 4 mg/dL [facility] Chloride [Moles/Vol] 105 mmol/L 98 - 10 7 mmol/L [facility] CO2 [Moles/Vol] 23 mmol/L 20 - 31 mmol/L [facility] Creatinine [Mass/Vol] 0.8 mg/dL 0.50 - 0.90 mg/dL [facility] Est, Glofrank [place] Rate - [facility] Comment on above: These results are not [...] tubular secretion. Glucose [Mass/Vol] 118 mg/dL High 74 - 99 mg/dL [facility] Interpretation and review of laboratory results Abnormal [facility] Potassium [Moles/Vol] 4.3 mmol/L 3.7 - 5.3 mmol/L [facility] Comment on above: SPECIMEN SLIGHTLY HE MOLYZED, RESULTS MAY BE ADVERSELY AFFECTED. Protein [Mass/Vol] 8.1 g/dL 6.6 - 8.7 g/dL [facility] Sodium [Moles/Vol] 141 mmol/L 136 - 145 mmol/L [facility] Urea nitrogen [Mass/Vol] 7 mg/dL 6 - 20 mg/dL [facility] Comp Metabolic Profon 2023 Albumin [Mass/Vol] 4.8 g/dL Normal 3.5-5.2 [facility] Comment on above: Performed By: #### C DP, CP, LIP #### [facility] [address] [place], [place] [id number] Safemaker: Rishabh Mendieta MD Albumin/Glob Ratio 1.0 Normal 1.0-2.5 [facility] Comment on above: Performed By: #### C DP, CP, LIP #### [facility] [address] [place] [address] Safemaker: Rishabh Mendieta MD Alkaline Phos 112 U/L High 35-104 [facility] Comment on above: Performed By: #### C DP, CP, LIP #### [facility] [address] [place] [address] Safemaker: Rishabh Mendieta MD ALT [Catalytic activity/Vol] 52 U/L High 10-35 [facility] Comment on above: Performed By: #### C DP, CP, LIP #### [facility] [email or web address] [address] [place] [address] Safemaker: Rishabh Mendieta MD Anion gap [Moles/Vol] 13 mmol/L Normal 9-[address] [facility] Comment on above: Performed By: #### C DP, CP, LIP #### [address] [address] Safemaker: Rishabh Mendieta MD AST [Catalytic activity/Vol] 52 U/L [facility] 10-35 [facility] Comment on above: Performed By: #### C DP, CP, LIP #### [address] [address] Safemaker: Rishabh Mendieta MD Bilirubin [Mass/Vol] 0.4 mg/dL Normal 0.00-1.20 [facility] Comment on above: Performed By: #### C DP, CP, LIP #### [facility] [email or web address] [address] [place] [address] Safemaker: Rishabh Mendieta MD Calcium [Mass/Vol] 10.5 mg/dL High 8.6-10.4 [facility] Comment on above: Performed By: #### C DP, CP, LIP #### [facility] [email or web address] [address] [place] [address] Safemaker: Rishabh Mendieta MD Chloride [Moles/Vol] 105 mmol/L Normal 98-107 [facility] Comment on above: Performed By: #### C DP, CP, LIP #### [facility] [address] [place] [address] Safemaker: Rishabh Mendieta MD CO2 [Moles/Vol] 23 mmol/L Normal 20-31 [facility] Comment on above: Performed By: #### C DP, CP, LIP #### [facility] [address] [place] [address] Safemaker: Rishabh Mendieta MD Creatinine [Mass/Vol] 0.8 mg/dL Normal 0.50-0.[address] [facility] Comment on above: Performed By: #### C DP, CP, LIP #### [address] [address] Safemaker: Rishabh Mendieta MD GFR/1.73 sq M.predicted among non-blacks MDRD (S/P/Bld) [Vol rate/Area] mL/min/{1.73_m2} Normal >60 [facility] Comment on above: Result Comment: These [...] tubular secretion. Performed By: #### C DP, CP, LIP #### [address] [address] Safemaker: Rishabh Mendieta MD Glucose [Mass/Vol] 118 mg/dL High 74-99 [facility] Comment on above: Performed By: #### C DP, CP, LIP #### [address] [address] Safemaker: Rishabh Mendieta MD Potassium [Moles/Vol] 4.3 mmol/L Normal 3.7-5.[address] [facility] Comment on above: Result Comment: SPEC IMEN SLIGHTLY HEMOLYZED, RESULTS MAY BE ADVERSELY AFFECTED. Performed By: #### C DP CP, LIP #### [address] [address] Safemaker: Rishabh Mendieta MD Protein [Mass/Vol] 8.1 g/dL Normal 6.6-8.7 [facility] Comment on above: Performed By: #### C VENKAT CP, LIP #### [address] [address] Safemaker: Rishabh Mendieta MD Sodium [Moles/Vol] 141 mmol/L Normal 136-145 [facility] Comment on above: Performed By: #### C NAA ROBLEDO, LIP #### [address] [address] Safemaker: Rishabh Mendieta MD Urea nitrogen [Mass/Vol] 7 mg/dL Normal 6-20 [facility] Comment on above: Performed By: #### C ANA ROBLEDO, LIP #### [address] [address] Safemaker: Rishabh Mendieta MD Lipaseon 05-26-2024 Lipase [Catalytic activity/Vol] 54 U/L 13 - 60 U/L [facility] Lipase [Catalytic activity/Vol] 54 U/L Normal 13-60 [facility] Comment on above: Performed By: #### C ANA ROBLEDO, LIP #### [address] [address] Safemaker: Rishabh Mendieta MD No Panel Informationon 05-26 [facility] UA w/Reflex Cultureon 2023 Bilirubin, SemiQt,Ur Negative Normal NEG [facility] Comment on above: Performed By: #### U AX #### [address] [address] Safemaker: Rishabh Mendieta MD Blood, Urine Negative Normal NEG [facility] Comment on above: Performed By: #### U AX #### [address] [address] Safemaker: Rishabh Mendieta MD Clarity (U) Clear Normal CLEAR [facility] Comment on above: Performed By: #### U AX #### [address] [address] Safemaker: Rishabh Mendieta MD Color (U) Yellow Normal YEL [facility] Comment on above: Performed By: #### U AX #### [address] [address] Safemaker: Rishabh Mendieta MD Comment Microscopic exam not performed based on chemical results unless requested in Normal [facility] Comment on above: Result Comment: orig inal order. Performed By: #### U AX #### [address] [address] Safemaker: Rishabh Mendieta MD Glucose Ql (U) Negative Normal NEG [facility] Comment on above: Performed By: #### U AX #### [address] [address] Safemaker: Rishabh Mendieta MD Ketones Ql (U) Negative Normal NEG [facility] Comment on above: Performed By: #### U AX #### [address] [address] Safemaker: Rishabh Mendieta MD Leukocyte esterase Test strip Ql (U) Negative Normal NEG [facility] Comment on above: Performed By: #### U AX #### [address] [address] Safemaker: Rishabh Mendieta MD Nitrite,Ur Negative Normal NEG [facility] Comment on above: Performed By: #### U AX #### [address] [id number] Safemaker: Rishabh Mendieta MD PH,Ur 6.5 Normal 5.0-8.0 [facility] Comment on above: Performed By: #### U AX #### [address] [id number] Safemaker: Rishabh Mendieta MD Protein Ql (U) Negative Normal NEG [facility] Comment on above: Performed By: #### U AX #### [address] [id number] Safemaker: Rishabh Mendieta MD Spec. [place],Ur 1.013 Normal 1.005-1.030 [facility] Comment on above: Performed By: #### U AX #### [address] [id number] Safemaker: Rishabh Mendieta MD Urobilinogen,Ur Normal Normal 0.0-1.0 [facility] Comment on above: Performed By: #### U AX #### [address] [phone] Safemaker: Rishabh Mendieta MD Urinalysis with Reflex to Cu ltureon 05-26-2024 Bilirubin Ql (U) Negative NEGATIVE [facility] [employer] Clarity (U) Clear Clear [facility] Color (U) Yellow Yellow [facility] Comment Microscopic exam not performed based on chemical results unless requested in original order. [facility] Glucose Test strip (U) [Mass/Vol] Negative NEGATIVE mg/dL [facility] Hemoglobin Auto test strip Ql (U) Negative NEGATIVE [facility] Ketones (U) [Mass/Vol] Negative NEGAT SIMA mg/dL [employer] [facility] Leukocyte esterase Test strip Ql (U) Negative NEGATIVE [facility] Nitrite Ql (U) Negative NEGATIVE [facility] pH (U) 6.5 [pH] 5.0 - 8.0 [facility] Protein (U) [Mass/Vol] Negative NEGAT SIMA mg/dL [facility] Specific gravity (U) [Rel density] 1.013 1.005 - 1.030 [facility] Urobilinogen Qn (U) Normal 0.0 - 1. 0 EU/dL [facility] CHEMISTRYOrdered By: SYSTEM SYSTEM on 05-24-2024 Anion gap [Moles/Vol] 10 mmol/L Normal 6 - 16 mEq/L [facility] Chloride [Moles/Vol] 108 mmol/L Normal 101 - 1 11 mmol/L [facility] CO2 [Moles/Vol] 26 mmol/L Normal 21 - 31 mmol/L [facility] Potassium [Moles/Vol] 4.2 mmol/L Normal 3.5 - 5.3 mmol/L [facility] Sodium [Moles/Vol] 140 mmol/L Normal 135 - 145 mmol/L [facility] HEMATOLOGYOrdered By: Betty simpson on 05-24-2024 WBC corrected for nucl RBC Auto (Bld) [#/Vol] 6.3 E9/L Normal 4.0 - 11.0 E9/L [facility] Inpatient Clinical Summaryon 05-24-2024 Inpatient Clinical Summary Inpatient Clinical Summary [place] [address] Clinical Summary Person Information: Name: GAEL RUBY Age: 28 Years : 1995 Sex: Female PCP: YOSSI GOLDEN MD Marital Status: Race: White Ethnicity: Non- or Language: Somali Visit Id: Visit Reason: Vomiting; Abdominal pain; GASTRO, N/V/ Speciality: Acuity: Enc Type: Inpatient Med Service: Medical Arrival: 05/22/2024 21:21:53 Discharge: Dispo Type: Admitted as IP to this Hosp Address: [address] [place] [id number] Provider Notes: Diagnosis: 1:Gastroparesis; 2:Type 2 diabetes mellitus; 3:Essential hypertension; 4:LINA (generalized anxiety disorder); 5:Morbid obesity Problems Active Abdominal pain, periumbilical Postprandial diarrhea Frequent loose stools Factor V Leiden BMI 37.0-37.9, adult Diabetes Depression LINA (generalized anxiety disorder) Insomnia History of pulmonary embolism GERD (gastroesophageal reflux disease) Dysphagia Bilateral lower extremity edema Smoker Prolapsed lumbar intervertebral disc Morbid obesity Left ventricular hypertrophy (04/04/2020) Hiatal hernia (04/09/2017) Essential hypertension Endometriosis (clinical) (09/28/2022) Diarrhea Cyst of right ovary Cholangiectasis (03/26/2017) Acute pancreatitis (03/25/2017) Smoking Status: Current Every Day Smoker Functional Status: Sensory Deficits: History of Falls: Mobility Assistance Prior to Admission: ADLs: Independent Current Level of Assistance for Self-Care/Mobility: Cognitive Status: Oriented x 3 Allergies amoxicillin (Rash) (Nausea and vomiting) ketorolac (Itching) (Dyspnea) meperidine (Dyspnea) (Itching) traMADol (Unknown) Latex (Itching) Eggs (Abdominal pain) Kiwi (unk) Pyridium (unk) Measurements: Height: 172.72 cm Weight: 113.4 kg Blood Pressure: 110 mmHg / 71 mmHg BMI: 37.17 kg/m2 Procedures No Procedures Documented Immunizations No Immunizations Documented This Visit Final Med List: acetaminophen (acetaminophen 325 mg Tab) 2 Tablets By Mouth every 6 hours as needed Pain. acetaminophen-hydrocod one (Amidon 325 mg-5 mg oral tablet) 1 Tablets By Mouth 2 times a day as needed Pain for 3 Days. Refills: 0. albuterol (Albuterol (Eqv-ProAir HFA) 90 mcg/inh inhalation aerosol) 2 Puffs Inhalation every 4 hours as needed Wheezing. dulaglutide (Trulicity Pen 1.5 mg/0.5 mL subcutaneous solution) 1.5 Milligram Subcutaneous every week. glipiZIDE (glipiZIDE 10 mg Tab) 1 Tablets By Mouth 2 times a day. hydrOXYzine (hydrOXYzine hydrochloride 25 mg Tab) 1 Tablets By Mouth every 6 hours as needed as needed for anxiety. hyoscyamine (hyoscyamine 0.375 mg ER Tab) 1 Tablets By Mouth at bedtime. insulin glargine (Lantus 100 units/mL Injection-Insulin) 30 Units Subcutaneous once a day (at bedtime). metoclopramide (Reglan 10 mg Tab) 1 Tablets By Mouth 4 times a day as needed Other (see comment) for 14 Days. Stop dosing for any side effect symptoms - refer to hand out given to you. Refills: 0. nicotine (nicotine 21 mg-14 mg-7 mg transdermal film, extended release) 1 Patches Transdermal at noon for 28 Days. Refills: 0. ondansetron (ondansetron 4 mg Dis Tab) 1 Tablets By Mouth every 6 hours as needed Nausea for 3 Days. Refills: 0. pantoprazole (Pantoprazole [address] Tab) 1 Tablets By Mouth 2 times a day. Refills: 0. promethazine (Phenergan 12.5 mg Supp) 1 Suppositories By rectum every 4 hours as needed Nausea/Vomiting. If zofran is ineffective. sertraline (sertraline 100 mg Tab) 1 Tablets By Mouth every day. tizanidine (tiZANidine 4 mg Tab) 1 Tablets By Mouth 3 times a day. Care Team Members: Attending Physician: Naima Sewell MD Consulting Physician: Beto GREWAL, Aly Whitten Referring Physician: Follow up: With: Address: When: Aly Beverly [address] [facility], [address] [phone] Business (1) Within 7 to 10 days Comments: Call for followup appointment With: Address: When: YOSSI GOLDEN [address] [place], [place] [phone] Business (1) Within 3 to 5 days Comments: Call for followup appointment Patient Education Information: Obesity, Adult, Mhab-li-Hafj; Gastroparesis; DASH Eating Plan; Abdominal Bloating; Acute Pain, Adult metoclopramide, nicotine, Amidon 5/325 Tab, ondansetron, pantoprazole Normal [facility] Inpatient Patient Summaryon 05-24-2024 Inpatient Patient Summary Inpatient Patient Summary GAEL RUBY :1995 Visit Date:05/22/2024 Inpatient Discharge Instructions Your Care Team Admitting Physician - Naima Sewell MD Consulting Physician - Beto GREWAL, Aly Whitten Reason for Your Visit upper abd. pain and vomiting started today. hx gastroparesis, unable to keep meds down. Your Diagnosis Gastroparesis Type 2 diabetes mellitus Essential hypertension LINA (generalized anxiety disorder) Morbid obesity Abdominal pain Vomiting Tests Performed CT Abdomen/Pelvis w/ Contrast This Is Your Medications List acetaminophen (acetaminophen 325 mg Tab) acetaminophen-hydrocod one (Amidon 325 mg-5 mg oral tablet) albuterol (Albuterol (Eqv-ProAir HFA) 90 mcg/inh inhalation aerosol) dulaglutide (Trulicity Pen 1.5 mg/0.5 mL subcutaneous solution) glipiZIDE (glipiZIDE 10 mg Tab) hydrOXYzine (hydrOXYzine hydrochloride 25 mg Tab) hyoscyamine (hyoscyamine 0.375 mg ER Tab) insulin glargine (Lantus 100 units/mL Injection-Insulin) metoclopramide (Reglan 10 mg Tab) nicotine (nicotine 21 mg-14 mg-7 mg transdermal film, extended release) ondansetron (ondansetron 4 mg Dis Tab) pantoprazole (Pantoprazole [address] Tab) promethazine (Phenergan 12.5 mg Supp) sertraline (sertraline 100 mg Tab) tizanidine (tiZANidine 4 mg Tab) [Image Removed: STOP]Stop taking these medications dicyclomine (Bentyl 10 mg Cap) omeprazole (omeprazole 40 mg Cap-DR) sucralfate (Carafate 1 gram Tab) Procedure History section (2018), section (2016), Bilateral oophorectomy, section, Cholecystectomy, Extraction of wisdom tooth, Laparoscopic hysterectomy, Laparoscopy, Tear duct, Tonsillectomy. Discharge Vitals Temperature (Oral) 36.5 ?C Heart Rate (Monitored) 90 Respiratory Rate 18 Blood Pressure 110/71 Weight 113.4 kg What to do next Instructions From Your Doctor Event Name Event Result Discharge Activity Ambulate as tolerated, Activity as tolerated Discharge Restrictions No restrictions Discharge Diet(s) Calorie Controlled- 1800 Calorie Diet, Fat Modified- 50 gram, Low Sodium- 2000 mg Pending Diagnostic Test Results None Discharge Instructions Call [phone] in a.m. to schedule your outpatient gastric emptying study, let them know you need it maico so it can be reviewed prior to your Dr. Beverly appointmentFollow up appts as writtenSm. frequent meals, take your time eating New Follow Up Appointments after Discharge Follow Up with Aly Beverly When: Within 7 to 10 days Comments: Call for followup appointment Where: [address], [address] [phone] Business (1) Follow Up with YOSSI GOLDEN When: Within 3 to 5 days Comments: Call for followup appointment Where: [address] [place] [address] Business (1) Medications What How Much When Why Instructions Next Dose New acetaminophen (acetaminophen 325 mg Tab) 2 Tablets By Mouth Every 6 hours as needed for Pain as needed New acetaminophen-hydrocod one (Amidon 325 mg-5 mg oral tablet) 1 Tablets By Mouth 2 times a day as needed for Pain Gastroparesis Duration: 3 Days Pickup at [facility] [id number] as needed New nicotine (nicotine 21 mg-14 mg-7 mg transdermal film, extended release) 1 Patches Transdermal At noon Duration: 28 Days Pickup at [facility] [id number] 9/ @ 1200 New pantoprazole (Pantoprazole [address] Tab) 1 Tablets By Mouth 2 times a day Pickup at [facility] [id number] 05/24 @ 9pm Changed albuterol (Albuterol (Eqv-ProAir HFA) 90 mcg/ inh inhalation aerosol) 2 Puffs Inhalation Every 4 hours as needed for Wheezing as needed Changed hyoscyamine (hyoscyamine 0.375 mg ER Tab) 1 Tablets By Mouth At bedtime 05/24 @ 9pm Changed insulin glargine (Lantus 100 units/ mL Injection-Insulin) 30 Units Subcutaneous Once a day (at bedtime) 05/24 @ 9pm Changed metoclopramide (Reglan 10 mg Tab) 1 Tablets By Mouth 4 times a day as needed for Other (see comment) Gastroparesis Duration: 14 Days Stop dosing for any side effect symptoms - refer to hand out given to you Pickup at [facility] [id number] as needed Changed ondansetron (ondansetron 4 mg Dis Tab) 1 Tablets By Mouth Every 6 hours as needed for Nausea Duration: 3 Days Pickup at [facility] [id number] as needed Changed promethazine (Phenergan 12.5 mg Supp) 1 Suppositories By rectum Every 4 hours as needed for Nausea/Vomiting If zofran is ineffective as needed Changed sertraline (sertraline 100 mg Tab) 1 Tablets By Mouth Every day 05/25 @ 9am Unchanged dulaglutide (Trulicity Pen 1.5 mg/ 0.5 mL subcutaneous solution) 1.5 Milligram Subcutaneous Every week resume Unchanged glipiZIDE (glipiZIDE 10 mg Tab) 1 Tablets By Mouth 2 times a day 05/24 @ 9pm Unchanged hydrOXYzine (hydrOXYzine hydrochloride 25 mg Tab) 1 Tablets By Mouth Every 6 hours as needed for as needed for anxiety as needed Unchanged tizanidine (t (more content not included)... Normal [facility] Inpatient Patient Summary Inpatient Patient Summary [place] [id number] Patient Discharge Instructions PERSON INFORMATION Name: GAEL RUBY Date of : 1995 Current Date: 05/24/2024 13:22:39 PHYSICIANS Admitting Physician: Naima Sewell MD Primary Care Physician: YOSSI GOLDEN MD PCP Comment: Discharge Diagnosis: 1:Gastroparesis; 2:Type 2 diabetes mellitus; 3:Essential hypertension; 4:LINA (generalized anxiety disorder); 5:Morbid obesity Condition at Discharge: Stable PORFIRIO RUBYBERDARVIN Al has been given the following list of follow-up instructions, prescriptions, and patient education materials: PATIENT FOLLOW-UP INFORMATION Diet: Calorie Controlled- 1800 Calorie Diet, Fat Modified- 50 gram, Low Sodium- 2000 mg Discharge Activity: Ambulate as tolerated, Activity as tolerated Discharge Restrictions: No restrictions Wound Care Instructions: Remove Your Dressing In Days Call Your Doctor For: IF UNABLE TO CONTACT YOUR PHYSICIAN AND YOU FEEL IT IS AN EMERGENCY, GO TO THE NEAREST EMERGENCY ROOM OR CALL 911 Home Treatment: Devices/Equipment: Nebulizer, Walker Special Services: Additional Instructions: Call [phone] in a.m. to schedule your outpatient gastric emptying study, let them know you need it maico so it can be reviewed prior to your Dr. Beverly appointment Follow up appts as written Sm. frequent meals, take your time eating Primary Care Physician to provide the following pending test results: None Follow up: With: Address: When: Aly Beverly [address], [address], [facility] [address] [place] [phone] Business (1) Within 7 to 10 days Comments: Call for followup appointment With: Address: When: YOSSI GOLDEN [address] [place] [phone] Business (1) Within 3 to 5 days Comments: Call for followup appointment In the event that this physician does not participate in your insurance network, please consult with your insurance company to find a nearby participating provider. Comment: FLORI Pastor KIMBERLY R, have received the attached patient education materials/instructions and have verbalized understanding: Patient Signature Date Clinican/Nurse Signature ___ Date HERE ARE THE MEDICATION CHANGES THAT OCCURRED DURING YOUR HOSPITAL STAY New Medications [facility] [id number], [address] [place], [place] [id number], [phone] acetaminophen-hydrocod one (Amidon 325 mg-5 mg oral tablet) 1 Tablets By Mouth 2 times a day as needed Pain for 3 Days. Refills: 0. Last Dose: ___Next Dose: ___ nicotine (nicotine 21 mg-14 mg-7 mg transdermal film, extended release) 1 Patches Transdermal at noon for 28 Days. Refills: 0. Last Dose: ___Next Dose: ___ pantoprazole (Pantoprazole [address] Tab) 1 Tablets By Mouth 2 times a day. Refills: 0. Last Dose: ___Next Dose: ___ Other Medications acetaminophen (acetaminophen 325 mg Tab) 2 Tablets By Mouth every 6 hours as needed Pain. Last Dose: ___Next Dose: ___ Medications to Continue Taking That Have Changed [facility] [id number], [address] [place], [place] [phone], [phone] START: metoclopramide (Reglan 10 mg Tab) 1 Tablets By Mouth 4 times a day as needed Other (see comment) for 14 Days. Stop dosing for any side effect symptoms - refer to hand out given to you. Refills: 0. Last Dose: ___Next Dose: ___ STOP: metoclopramide (Reglan 10 mg Tab) 1 Tablets By Mouth 4 times a day. START: ondansetron (ondansetron 4 mg Dis Tab) 1 Tablets By Mouth every 6 hours as needed Nausea for 3 Days. Refills: 0. Last Dose: ___Next Dose: ___ STOP: ondansetron (ondansetron 4 mg Dis Tab) 1 Tablets By Mouth every 6 hours as needed Nausea. Other Medications START: albuterol (Albuterol (Eqv-ProAir HFA) 90 mcg/inh inhalation aerosol) 2 Puffs Inhalation every 4 hours as needed Wheezing. Last Dose: ___Next Dose: ___ STOP: albuterol (Albuterol (Eqv-ProAir HFA) 90 mcg/inh inhalation aerosol) START: hyoscyamine (hyoscyamine 0.375 mg ER Tab) 1 Tablets By Mouth at bedtime. Last Dose: ___Next Dose: ___ START: insulin glargine (Lantus 100 units/mL Injection-Insulin) 30 Units Subcutaneous once a day (at bedtime). Last Dose: ___Next Dose: ___ STOP: insulin glargine (Lantus 100 units/mL Injection-Insulin) START: promethazine (Phenergan 12.5 mg Supp) 1 Suppositories By rectum every 4 hours as needed Nausea/Vomiting. If zofran is ineffective. Last Dose: ___Next Dose: ___ STOP: (more content not included)... Normal [facility] [place] 05-24-2024 Anion gap [Moles/Vol] 10 mmol/L Normal 6-16 [facility] Comment on above: Performed By: #### 2 [id number] #### [facility] [address] [place] [address] Chloride [Moles/Vol] 108 mmol/L Normal 101-111 [facility] Comment on above: Performed By: #### 2 [id number] #### [facility] [address] [place] [address] CO2 [Moles/Vol] 26 mmol/L Normal 21-31 [facility] Comment on above: Performed By: #### 2 [id number] #### [facility] [address] [place] [address] Potassium [Moles/Vol] 4.2 mmol/L Normal 3.5-5.3 [facility] Comment on above: Performed By: #### 2 [id number] #### [facility] [address] [place] [address] Sodium [Moles/Vol] 140 mmol/L Normal 135-145 [facility] Comment on above: Performed By: #### 2 [id number] #### [facility] [address] [place] [address] WBCon 05-24-2024 WBC corrected for nucl RBC Auto (Bld) [#/Vol] 6.3 E9/L Normal 4.0-11.0 [facility] Comment on above: Performed By: #### 2 [id number] #### [facility] [address] [place] [address] CT Abdomen/Pelvis w/ Contras ton 05-23-2024 CT Abdomen/Pelvis w/ Contrast Exam Date/Time: 05/23/2024 12:49 EDT Reason for Exam: Pain Report IMPRESSION: No acute process in the abdomen/pelvis. EXAMINATION: CT Abdomen/Pelvis w/ Contrast HISTORY: Upper abdominal pain. Vomiting. History of gastroparesis. TECHNIQUE: CT of the abdomen and pelvis was performed using standard technique with intravenous contrast, scanning from just above the dome of the diaphragm to the symphysis pubis. Including delayed images through the kidneys. Including sagittal and coronal reconstructions on both phases. Unless otherwise stated, incidental findings identified in this report do not require routine follow-up imaging. All CT scans at this facility use dose modulation, iterative reconstruction, and/or weight based dosing when appropriate to reduce radiation dose to as low as reasonably achievable. COMPARISON: None. RESULT: Liver: Diffuse hepatic steatosis. Liver otherwise unremarkable. Biliary: Cholecystectomy. No bile duct dilation. Pancreas: No mass or duct dilation. Spleen: No mass or splenomegaly. Adrenals: No mass. Kidneys: No calculus or hydronephrosis. No suspicious renal lesions. Delayed phase images unremarkable. GI tract: No dilation or wall thickening. Normal appendix. Feces throughout the colon. No evidence for diverticulitis. Lymph nodes: No abdominal or pelvic lymphadenopathy. Mesentery/Peritoneum/R etroperitoneum: No ascites or mass. Vasculature: The celiac axis and SMA are patent. The portal vein and branches, Report splenic vein, SMV, and hepatic veins are patent. No abdominal aortic or iliac artery aneurysm. Pelvis: No significant free fluid. Hysterectomy. Bladder unremarkable. Bones: No acute osseous findings. Degenerative changes. Soft tissues: Unremarkable. Lower thorax: Unremarkable. Ordering Provider: Aly Beverly FINAL REPORT Dictated: 05/23/2024 12:53 pm Woodrow Bell MD Signed (Electronic Signature): 05/23/2024 12:53 pm Signed by: Woodrow Bell MD Transcribed by: VENKAT Technologist: RORY Technical Comments GFR (mL/min/1/73m2) >60 Contrast: Isovue 300 Contrast amount in ml's: 100 Normal [facility] ED Clinical Summaryon 2023 ED Clinical Summary ED Clinical Summary [place] [id number] ED Clinical Summary Person Information Name: GAEL RUBY/[facility] Age: 28 Years : 1995 Sex: Female Language: Somali PCP: YOSSI GOLDEN MD Marital Status: Visit Id: Visit Reason: Vomiting; Abdominal pain; GASTRO, N/V/ Speciality: Acuity: 3 Enc Type: Inpatient Med Service: Medical Arrival: 05/22/2024 21:21:53 Discharge: LOS: 000 05:17 Checkin: 05/22/2024 21:21:53 Checkout: 05/23/2024 02:38:30 Dispo Type: Admitted as IP to this [facility] EVENTS: Event Name Event Status Request Date/Time Start Date/Time Complete Date/Time Arrive Complete 05/22/2024 21:21:53 05/22/2024 21:21:53 05/22/2024 21:21:53 Document Home Meds Request 05/22/2024 21:21:53 Triage Complete 05/22/2024 21:21:53 05/22/2024 21:52:46 05/22/2024 21:52:46 Pending Labs Request 05/22/2024 21:53:54 Lab Complete 05/22/2024 21:53:54 05/22/2024 22:51:24 Pending Labs Complete 05/22/2024 22:28:37 05/22/2024 22:28:37 05/22/2024 22:51:24 Lab Complete 05/22/2024 22:28:37 05/22/2024 22:28:37 05/22/2024 22:51:24 Bed Assign Complete 05/22/2024 23:12:56 05/22/2024 23:12:56 05/22/2024 23:12:56 Dr Exam Complete 05/22/2024 23:12:56 05/23/2024 00:12:35 05/23/2024 00:12:35 RN Exam Complete 05/22/2024 23:12:56 05/23/2024 00:19:59 05/23/2024 00:19:59 Registration Complete 05/23/2024 00:12:35 05/23/2024 02:02:52 05/23/2024 02:02:52 Meds Admin Request 05/23/2024 00:39:34 Consult Request 05/23/2024 00:59:30 Hospitalist Consult Request 05/23/2024 00:59:30 Bed Request Request 05/23/2024 01:23:32 Reg Bed Request Complete 05/23/2024 01:23:32 05/23/2024 02:02:53 05/23/2024 02:02:53 Admit Request 05/23/2024 01:23:32 Patient Care Request 05/23/2024 01:31:22 Patient Care Request 05/23/2024 01:31:23 Patient Care Request 05/23/2024 01:31:23 Patient Care Request 05/23/2024 01:31:23 Patient Care Request 05/23/2024 01:31:24 Patient Care Request 05/23/2024 01:31:24 Meds Admin Complete 05/23/2024 01:57:44 05/23/2024 02:12:05 Reg Complete Request 05/23/2024 02:02:52 ADDRESS: [address] [place] [id number] PHYS DOC NOTES: MEDICAL INFORMATION: Prescriptions Given: Medications to Continue with No Changes Other Medications dulaglutide (Trulicity Pen 1.5 mg/0.5 mL subcutaneous solution) 1.5 Milligram Subcutaneous every week. glipiZIDE (glipiZIDE 10 mg Tab) 1 Tablets By Mouth 2 times a day. hydrOXYzine (hydrOXYzine hydrochloride 25 mg Tab) 1 Tablets By Mouth every 6 hours as needed as needed for anxiety. omeprazole (omeprazole 40 mg Cap-DR) 1 Capsules By Mouth 2 times a day. ondansetron (ondansetron 4 mg Dis Tab) 1 Tablets By Mouth every 6 hours as needed Nausea. sertraline (sertraline 25 mg Tab) 1 Tablets By Mouth every day. sucralfate (Carafate 1 gram Tab) 1 Tablets By Mouth four times a day (before meals and at bedtime). prescribed 12/26/22. tizanidine (tiZANidine 4 mg Tab) 1 Tablets By Mouth 3 times a day. PATIENT EDUCATION INFORMATION: Instructions: Follow up: DIAGNOSIS: Normal [facility] ED Note-Physicianon 05-23-20 ED Note-Physician ED Note-Physician Basic Information Time Seen: Cameron Conklin DO 05/23/2024 00:12 Chief Complaint upper abd. pain and vomiting started today. hx gastroparesis, unable to keep meds down. History of Present Illness 28-year-old female to the emergency department chief plaint of upper abdominal pain and vomiting. Patient has had symptoms that been ongoing for the last 3 to 4 weeks. She reports that she has been seen several times at several different hospitals for this. She had a gastric emptying study with her primary doctor which was concerning for gastroparesis. She denies any fever, sweats, chills. She is moving her bowels. She reports nausea and vomiting severe today not allowing her to keep down her meds. She has not been able to follow-up with GI as they are scheduling out several months. Review of Systems A 10 point review of systems is negative except as noted above. Medical and Surgical History: Reviewed and noted Social history: Lives at home Tobacco: Denies Physical Exam Vitals & Measurements T: 36.9 ?C(Oral) HR: 81(Peripheral) RR: 18 BP: 134/85 SpO2: 96% HT: 172.72 cm WT: 110.9 kg BMI: 37.17 VITALS: I have reviewed the triage vital signs. GENERAL: Adult female actively vomiting NEURO: Alert and oriented. Moves all extremities. Face is symmetric and expressive. EYES: PERRL. No scleral icterus or conjunctival injection. No discharge. HENT: Normocephalic, atraumatic. Hearing is grossly intact. Nares grossly patent and without discharge. Mucous membranes moist. NECK: No JVD. Patient moves neck without restriction. CARDIO: Rhythm regular. Normal rate. No murmur, rub, or gallop. Pulses equal bilaterally in the upper and lower extremity. No lower extremity edema. PULM: Lungs clear to auscultation in all krishna. No wheezes, rales, or rhonchi. No conversational dyspnea. No splinting, stridor, or accessory muscle use. GI/: Abdomen is soft and non-tender. Normoactive bowel sounds. EXTREMITIES: Symmetric muscle bulk. No joint swelling. No clubbing, cyanosis, or deformity. SKIN: Warm and dry. Normal turgor. No rash or lesions appreciated. PSYCH: Mood, affect, and interaction is appropriate to the setting. Medical Decision Making 28-year-old female to the emergency department with chief complaint of nausea vomiting epigastric discomfort. She has had vomiting that is been ongoing for several weeks. She had an outpatient gastric emptying study concerning for gastroparesis. Lab work reviewed and noted. Mild elevation of lipase, trivial does not meet definition of pancreatitis. She has had multiple CT scans performed which are without acute findings. These are scanned into the chart for consult reviewed. She is status postcholecystectomy. Patient with severe nausea vomiting epigastric pain, multiple ED visits. Plan to admit the patient for GI evaluation. Case discussed with the hospitalist who agrees. Patient agrees with this plan. Assessment/Plan 1. Gastroparesis (K31.84: Gastroparesis) 2. Type 2 diabetes mellitus (E11.9: Type 2 diabetes mellitus without complications) 3. Essential hypertension (I10: Essential (primary) hypertension) 4. LINA (generalized anxiety disorder) (F41.1: Generalized anxiety disorder) 5. Morbid obesity (E66.01: Morbid (severe) obesity due to excess calories) Orders: morphine, 4 mg = 1 mL, Injection, IV Push, Once, Stop date 05/23/24 1:57:00 EDT, STAT, Start date 05/23/24 1:57:00 EDT, 05/23/24 1:57:00 EDT morphine, 4 mg = 1 mL, Injection, IV Push, Once, Stop date 05/23/24 0:39:00 EDT, STAT, Start date 05/23/24 0:39:00 EDT, 05/23/24 0:39:00 EDT promethazine 12.5 mg + Sodium Chloride 0.9% intravenous solution 50 mL, Injection, IV Piggyback, Once, Stop date 05/23/24 0:38:00 EDT, STAT, Start date 05/23/24 0:38:00 EDT, 151.5 mL/hr, Infuse over 20 minute(s) Basic Metabolic Panel CBC w/ Auto Diff ED Physician consult Hospitalist for continued care eGFR Hepatic Function Panel Lipase Level UA with Cult Rflx Medications Administered Given Sodium Chloride 0.9% IV Deniz 1000 mL 1,000 mL, 1000 mL, IV morphine 4 mg/mL Inj, 4 mg, IV Push morphine 4 mg/mL Inj, 4 mg, IV Push [id number] [F] 12.5 mg + Sodium Chloride 0.9% IV Deniz 50 mL [F] 50 mL, IV Piggyback Disposition Plan Patient Discharge Condition Stable Discharge Disposition Admitted Discharge Prescription List Prescriptions No active prescription medications Follow-up No qualifying data available Problem List/Past Medical History Ongoing Abdominal pain, periumbilical Acute pancreatitis Bilateral lower extremity edema BMI 37.0-37.9, adult Cholangiectasis Cyst of right ovary Depression Diabetes Diarrhea Dysphagia Endometriosis (clinical) Essential hypertension Factor V Leiden Frequent loose stools LINA (generalized anxiety disorder) GERD (gastroesophageal reflux disease) Hiatal hernia History of pulmonary embolism Insomnia Left ventricular hypertrophy Morbid obesity Postpr (more content not included)... Normal [facility] Comment on above: Result Comment: Elec tronically Signed By: Cameron Conklin DO\.br\Date and Time Signed: 05/23/24 03:43 EDT ED Patient Education Noteon 05-23-2024 ED Patient Education Note ED Patient Education Note Normal [facility] ED Patient Summaryon 024 ED Patient Summary ED Patient Summary [place] [id number] Patient Discharge Instructions Person Information Name: GAEL RUBY Age: 28 Years Arrival Date: 05/22/2024 21:21:53 Discharge Diagnosis: Primary Care Physician: YOSSI GOLDEN MD Provider Information Primary Provider: Cameron Conklin DO [employer] Processor:None The exam and treatment you received in the Emergency Department were for an urgent problem and are not intended as complete care. It is important that you follow up with a doctor, nurse practitioner, or physician?s secretary administrative assistant for ongoing care. If your symptoms become worse or you do not improve as expected and you are unable to reach your usual health care provider, you should return to the Emergency Department. We are available 24 hours a day. GAEL RUBY has been given the following list of patient education materials, prescriptions and follow-up instructions: Follow-up Instructions: In the event that this physician does not participate in your insurance network, please consult with your insurance company to find a nearby participating provider. Patient Education Materials: A MESSAGE TO ALL PATIENTS REGARDING OPIOIDS PRESCRIPTION OPIOIDS: WHAT YOU NEED TO KNOW Prescription opioids can be used to help relieve hzsfdxxi-fk-aizguu pain and are often prescribed following a surgery or injury, or for certain health conditions. These medications can be an important part of the treatment but also come with serious risks. It is important to work with your healthcare provider to make sure you are getting the safest, most effective care. WHAT ARE THE RISKS AND SIDE EFFECTS OF OPIOID USE? Prescription opioids carry serious risks of addiction and overdose, especially with prolonged use. An opioid overdose, often marked by slowed breathing, can cause sudden . The use of prescription opioids can have a number of side effects as well, even when taken as directed: ? Tolerance?meaning you might need to take more of the medication for the same pain relief ? Physical dependence?meaning you have symptoms of withdrawal when a medication is stopped ? Increased sensitivity to pain ? Constipation ? Nausea, vomiting, and dry mouth ? Sleepiness and dizziness ? Confusion ? Depression ? Low levels of testosterone that can result in lower sex drive, energy, and strength ? Itching and sweating RISKS ARE GREATER WITH: ? History of drug misuse, substance use disorder, or overdose ? Mental health conditions (such as depression or anxiety) ? Sleep apnea ? Older age (65 years and older) ? Avoid alcohol while taking prescription opioids. Also, unless specifically advised by your health care provider, medications to avoid include: ? Benzodiazepines (such as Xanax or Valium) ? Muscle relaxants (such as Soma or Flexeril) ? Hypnotics (such as Ambien or Lunesta) ? Other prescription opioids KNOW YOUR OPTIONS Talk to your health care provider about ways to manage your pain that don?t involve prescription opioids. Some of these options may actually work better and have fewer risks and side effects. Options may include: ? Pain relievers such as acetaminophen, ibuprofen, and naproxen ? Some medication that are also used for depression or seizures ? Physical therapy and exercise ? Cognitive behavioral therapy, a psychological, goal-directed approach, in which patients learn how to modify physical, behavioral, and emotional triggers of pain and stress. IF YOU ARE PRESCRIBED OPIOIDS FOR PAIN: ? Never take opioids in greater amounts or more often than prescribed. ? Follow up with your primary health care provider. o Work together to create a plan on how to manage your pain. o Talk about ways to help manage your pain that don?t involve prescription opioids. o Talk about any and all concerns and side effects. ? Help prevent misuse and abuse o Never sell or share prescription opioids. o Never use another person?s prescription opioids. ? Store prescription opioids in a secure place and out of reach of others (this may include visitors, children, friends, and family). ? Safely dispose of unused prescription opioids: Find your community drug take-back program or your pharmacy mail-back program, or flush them down the toilet, following guidance from the Food and Drug Administration (www.fda.gov/Drugs/Res ourcesForYou). ? Visit www.cdc.gov/drugoverdo se to learn about the risks of opioids abuse and overdose. ? If you believe you may be struggling with addiction, tell your health manager managed care and ask for guidance or call SAMHSA?S National Helpline at 4-286-093-ZDTV. v Source: [place] Department of Health and Human Services/Center for Disease Control & Prevention [facility] Medications Given: Medication Dose Route Sodium Chlor (more content not included)... Normal [facility] UA with Cult Rflxon 05-23-20 24 Bilirubin Ql (U) Negative Normal Negative [facility] Comment on above: Performed By: #### 4 [id number] #### [facility] [address] [place] [address] Clarity (U) Clear Normal Clear [facility] Comment on above: Performed By: #### 4 [id number] #### [facility] [address] [place] [address] Color (U) Yellow Normal Yellow [facility] Comment on above: Result Comment: Micr oscopic readings are only performed on those samples that meet specific criteria set forth by [facility]. Performed By: #### 4 [id number] #### [facility] [address] [place] [address] Glucose Ql (U) Negative Normal Negative [facility] Comment on above: Performed By: #### 4 [id number] #### [facility] [address] [place] [address] Hemoglobin Auto test strip (U) [Mass/Vol] Negative Normal Negative [facility] Comment on above: Performed By: #### 4 [id number] #### [facility] [address] [place] [address] Ketones Auto test strip Ql (U) Negative Normal Negative [facility] Comment on above: Performed By: #### 4 [id number] #### [facility] [address] [place] [address] Leukocyte esterase Auto test strip Ql (U) Negative Normal Negative [facility] Comment on above: Performed By: #### 4 [id number] #### [facility] [address] [place] [address] Nitrite Auto test strip Ql (U) Negative Normal Negative [facility] Comment on above: Performed By: #### 4 [id number] #### [facility] [address] [place] [address] pH (U) 5.5 [pH] Invalid Interpretation Code 5.0-9.0 [facility] Comment on above: Performed By: #### 4 [id number] #### [facility] [address] [place] [address] Protein Ql (U) Trace Abnormal Negative [facility] Comment on above: Performed By: #### 4 [id number] #### [facility] [address] [place] [address] Specific gravity (U) [Rel density] 1.027 Invalid Interpretation Code 1.005-1.030 [facility] Comment on above: Performed By: #### 4 [id number] #### [facility] [address] [place] [address] Urobilinogen (U) [Mass/Vol] 2 mg/dL Abnormal Negative [facility] Comment on above: Performed By: #### 4 [id number] #### [facility] [address] [place] [address] URINALYSISOrdered By: [email or web address] on 05-23-2024 Bilirubin Ql (U) Negative Normal Negativemg/ dL [facility] UA Auto SS Clarity (U) Clear (05/23/24 3:24 AM) Normal Clear [facility] UA Auto SS Color (U) Yellow 1 (05/23/24 3:24 AM) Normal Yellow [facility] UA Auto SS Comment on above: Interpretive Data: M icroscopic readings are only performed on those samples that meet specific criteria set forth by [facility]. Glucose Ql (U) Negative Normal Negativemg/ dL [facility] UA Auto SS Hemoglobin Auto test strip (U) [Mass/Vol] Negative Normal Negativemg/ dL [facility] UA Auto SS Ketones Auto test strip Ql (U) Negative Normal Negativemg/ dL [facility] UA Auto SS Leukocyte esterase Auto test strip Ql (U) Negative Normal NegativeLeu /uL [facility] UA Auto SS Nitrite Auto test strip Ql (U) Negative Normal Negativemg/ dL [facility] UA Auto SS pH (U) 5.5 *NA* (05/23/24 3:24 AM) Invalid Interpretation Code 5.0 - 9.0 [facility] UA Auto SS Protein Ql (U) Trace mg/dL Invalid Interpretation Code Negativemg/ dL [facility] UA Auto SS Specific gravity (U) [Rel density] 1.027 *NA* (05/23/24 3:24 AM) Invalid Interpretation Code 1.005 - 1.030 [facility] UA Auto SS Urobilinogen (U) [Mass/Vol] 2 mg/dL Invalid Interpretation Code Negativemg/ dL [facility] UA Auto SS URINALYSISOrdered By: Fannie Valdez on 05-23-2024 UA Spec Desc Clean Catch (05/23/24 3:24 AM) Normal [facility] UA Auto SS BMPon 05-22-2024 Anion gap [Moles/Vol] 13 mmol/L Normal 6-16 [facility] Comment on above: Performed By: #### 2 [id number] #### [facility] [address] [place] [address] Calcium [Mass/Vol] 9.7 mg/dL Normal 8.9-11.1 [facility] Comment on above: Performed By: #### 2 [id number] #### [facility] [address] [place] [address] Chloride [Moles/Vol] 108 mmol/L Normal 101-111 [facility] Comment on above: Performed By: #### 2 [id number] #### [facility] [address] [place] [address] CO2 [Moles/Vol] 22 mmol/L Normal 21-31 [facility] Comment on above: Performed By: #### 2 [id number] #### [facility] [address] [place] [address] Creatinine [Mass/Vol] 0.7 mg/dL Normal 0.5-1.3 [facility] Comment on above: Performed By: #### 2 [id number] #### [facility] [address] [place] [address] Glucose [Mass/Vol] 136 mg/dL Normal 55-199 [facility] Comment on above: Performed By: #### 2 [id number] #### [facility] [address] [place] [address] Potassium [Moles/Vol] 4.1 mmol/L Normal 3.5-5.3 [facility] Comment on above: Performed By: #### 2 [id number] #### [facility] [address] [place] [address] Sodium [Moles/Vol] 139 mmol/L Normal 135-145 [facility] Comment on above: Performed By: #### 2 [id number] #### [facility] [address] [place] [address] Urea nitrogen [Mass/Vol] 11 mg/dL Normal 5-21 [facility] Comment on above: Performed By: #### 2 [id number] #### [facility] [address] [place] [address] Urea nitrogen/Creatinine [Mass ratio] 16 No Units Normal 10-20 [facility] Comment on above: Performed By: #### 2 [id number] #### [facility] [address] [place] [address] CBC w/ Auto Diffon 4 Basophils/100 WBC (Bld) 0.8 % Normal 0.0-2.0 [facility] Comment on above: Performed By: #### 2 [id number] #### [facility] [address] [place] [id number] Basophils/Leukocytes Auto (Bld) [Pure # fraction] 0.1 E9/L Normal 0.0-0.2 [facility] Comment on above: Performed By: #### 2 [id number] #### [facility] [address] [place] [address] Eosinophils (Bld) [#/Vol] 0.3 E9/L Normal 0.0-0.5 [facility] Comment on above: Performed By: #### 2 [id number] #### [facility] [address] [place] [address] Eosinophils/100 WBC (Bld) 2.3 % Normal 0.0-8.0 [facility] Comment on above: Performed By: #### 2 [id number] #### [facility] [address] [place] [address] Erythrocyte distribution width (RBC) [Ratio] 13.7 % Normal 10.9-14.2 [facility] Comment on above: Performed By: #### 2 [id number] #### [facility] [facility] [address] [place] [address] Hematocrit (Bld) [Volume fraction] 42.9 % Normal 34.0-46.0 [facility] Comment on above: Performed By: #### 2 [id number] #### [facility] [address] [place] [address] Hemoglobin (Bld) [Mass/Vol] 14.7 g/dL Normal 12.0-16.0 [facility] Comment on above: Performed By: #### 2 [id number] #### [facility] [address] [place] [address] Lymphocytes (Bld) [#/Vol] 4.6 E9/L High 1.0-4.0 [facility] Comment on above: Performed By: #### 2 [id number] #### [facility] [address] [place] [address] Lymphocytes/100 WBC (Bld) 39.5 % Normal 14.0-50.0 [facility] Comment on above: Performed By: #### 2 [id number] #### [facility] [address] [place] [address] MCH (RBC) [Entitic mass] 30.3 pg Normal 27.0-34.0 [facility] Comment on above: Performed By: #### 2 [id number] #### [facility] [address] [place] [address] MCHC (RBC) [Mass/Vol] 34.2 g/dL Normal 31.4-36.0 [facility] Comment on above: Performed By: #### 2 [id number] #### [facility] [address] [place] [address] MCV (RBC) [Entitic vol] 88.6 fL Normal 80.0-100.0 [facility] Comment on above: Performed By: #### 2 [id number] #### [facility] [address] [place] [address] Monocytes (Bld) [#/Vol] 0.6 E9/L Normal 0.2-1.0 [facility] Comment on above: Performed By: #### 2 [id number] #### [facility] [address] [place] [address] Neutrophils (Bld) [#/Vol] 6.1 E9/L Normal 2.0-7.5 [facility] Comment on above: Performed By: #### 2 [id number] #### [facility] [address] [place] [address] Neutrophils/100 WBC (Bld) 52.1 % Normal 36.0-75.0 [facility] Comment on above: Performed By: #### 2 [id number] #### [facility] [address] [place] [address] Platelet mean volume (Bld) [Entitic vol] 8.6 fL Normal 6.4-10.8 [facility] Comment on above: Performed By: #### 2 [id number] #### [facility] [address] [place] [address] Platelets (Bld) [#/Vol] 308.0 E9/L Normal 150.0-500.0 [facility] Comment on above: Performed By: #### 2 [id number] #### [facility] [address] [place] [address] RBC (Bld) [#/Vol] 4.8 E12/L Normal 4.3-5.9 [facility] Comment on above: Performed By: #### 2 [id number] #### [facility] [address] [place] [address] WBC corrected for nucl RBC Auto (Bld) [#/Vol] 11.7 E9/L High 4.0-11.0 [facility] Comment on above: Performed By: #### 2 [id number] #### [facility] [address] [place] [address] CHEMISTRYOrdered By: SYSTEM SYSTEM on 05-22-2024 Albumin [Mass/Vol] 4.5 g/dL Normal 3.3 - 5.0 gm/dL [facility] Albumin/Globulin [Mass ratio] 1.3 {ratio} Normal 1.1 - 2.2 [facility] ALP [Catalytic activity/Vol] 100 [iU]/d High 21 - 98 Int._Unit/L [facility] ALT No additional P-5'-P [Catalytic activity/Vol] 46 [iU]/d Normal 6 - 46 Int._Unit/L [facility] Anion gap [Moles/Vol] 13 mmol/L Normal 6 - 16 mEq/L [facility] AST [Catalytic activity/Vol] 34 [iU]/d Normal 5 - 43 Int._Unit/L [facility] Bilirubin [Mass/Vol] 0.5 mg/dL Normal 0.0 - 1 .1 mg/dL [facility] Bilirubin.direct [Mass/Vol] 0.1 mg/dL Normal 0.0 - 0.4 mg/dL [facility] Bilirubin.indirect [Mass or moles/Vol] 0.4 mg/dL Normal 0.1 - 0.9 mg/dL [facility] Calcium [Mass/Vol] 9.7 mg/dL Normal 8.9 - 11. 1 mg/dL [facility] Chloride [Moles/Vol] 108 mmol/L Normal 101 - 1 11 mmol/L [facility] CO2 [Moles/Vol] 22 mmol/L Normal 21 - 31 mmol/L [facility] Creatinine [Mass/Vol] 0.7 mg/dL Normal 0.5 - 1.3 mg/dL [facility] eGFR 119 mL/min/1.73 m2 Normal >=59mL/mi n/ 1.73 m2 [facility] Globulin (S) [Mass/Vol] 3.5 g/dL Normal 1.4 - 4.0 gm/dL [facility] Glucose [Mass/Vol] 136 mg/dL Normal 55 - 199 mg/dL [facility] Lipase [Catalytic activity/Vol] 111 U/L High 13 - 58 unit/L [facility] Potassium [Moles/Vol] 4.1 mmol/L Normal 3.5 - 5.3 mmol/L [facility] Protein [Mass/Vol] 8.0 g/dL High 6.0 - 7.8 gm/dL [facility] Sodium [Moles/Vol] 139 mmol/L Normal 135 - 145 mmol/L [facility] Urea nitrogen [Mass/Vol] 11 mg/dL Normal 5 - 21 mg/dL [facility] Urea nitrogen/Creatinine [Mass ratio] 16 mg/mg Normal 10 - 20 [facility] HEMATOLOGYOrdered By: SYSTEM SYSTEM on 05-22-2024 Basophils/100 WBC (Bld) 0.8 % Normal 0.0 - 2.0 % [facility]e Basophils/Leukocytes Auto (Bld) [Pure # fraction] 0.1 E9/L Normal 0.0 - 0.2 E9/L [facility] Eosinophils (Bld) [#/Vol] 0.3 E9/L Normal 0.0 - 0.5 E9/L [facility] Eosinophils/100 WBC (Bld) 2.3 % Normal 0.0 - 8.0 % [facility] Erythrocyte distribution width (RBC) [Ratio] 13.7 % Normal 10.9 - 14.2 % [facility] Hematocrit (Bld) [Volume fraction] 42.9 % Normal 34.0 - 46.0 % [facility] Hemoglobin (Bld) [Mass/Vol] 14.7 g/dL Normal 12.0 - 16.0 gm/dL [facility] Lymphocytes (Bld) [#/Vol] 4.6 E9/L High 1.0 - 4.0 E9/L [facility] Lymphocytes/100 WBC (Bld) 39.5 % Normal 14.0 - 50.0 % [facility] MCH (RBC) [Entitic mass] 30.3 pg Normal 27.0 - 34.0 pg [facility] MCHC (RBC) [Mass/Vol] 34.2 g/dL Normal 31.4 - 36.0 gm/dL [facility] MCV (RBC) [Entitic vol] 88.6 fL Normal 80.0 - 100.0 fL [facility] Monocytes (Bld) [#/Vol] 0.6 E9/L Normal 0.2 - 1.0 E9/L [facility] Monocytes/100 WBC (Bld) 5.3 % Normal 4.0 - 14.0 % [facility] Neutrophils (Bld) [#/Vol] 6.1 E9/L Normal 2.0 - 7.5 E9/L [facility] Neutrophils/100 WBC (Bld) 52.1 % Normal 36.0 - 75.0 % [facility] Platelet mean volume (Bld) [Entitic vol] 8.6 fL Normal 6.4 - 10.8 fL [facility] Platelets (Bld) [#/Vol] 308.0 E9/L Normal 150.0 - 500.0 E9/L [facility] RBC (Bld) [#/Vol] 4.8 E12/L Normal 4.3 - 5.9 E12/L [facility] WBC corrected for nucl RBC Auto (Bld) [#/Vol] 11.7 E9/L High 4.0 - 11.0 E9/L [facility] Hep Func Panelon 05-22-2024 Albumin [Mass/Vol] 4.5 g/dL Normal 3.3-5.0 [facility] Comment on above: Performed By: #### 2 [id number] #### [facility] [address] [place] [address] Albumin/Globulin (S) [Mass conc ratio] 1.3 Normal 1.1-2.2 [facility] Comment on above: Performed By: #### 2 [id number] #### [facility] [address] [place] [address] ALP [Catalytic activity/Vol] 100 Int._Unit/L High 21-98 [facility] Comment on above: Performed By: #### 2 [id number] #### [facility] [address] [place] [address] ALT No additional P-5'-P [Catalytic activity/Vol] 46 Int._Unit/L Normal 6-46 [facility] Comment on above: Performed By: #### 2 [id number] #### [facility] [address] [place] [address] AST [Catalytic activity/Vol] 34 Int._Unit/L Normal 5-43 [facility] Comment on above: Performed By: #### 2 [id number] #### [facility] [address] [place] [address] Bilirubin [Mass/Vol] 0.5 mg/dL Normal 0.0-1.1 [facility] Comment on above: Performed By: #### 2 [id number] #### [facility] [address] [place] [address] Bilirubin.direct [Mass/Vol] 0.1 mg/dL Normal 0.0-0.4 [facility] Comment on above: Performed By: #### 2 [id number] #### [facility] [address] [place] [address] Bilirubin.indirect [Mass or moles/Vol] 0.4 mg/dL Normal 0.1-0.9 [facility] Comment on above: Performed By: #### 2 [id number] #### [facility] [address] [place] [address] Globulin (S) [Mass/Vol] 3.5 g/dL Normal 1.4-4.0 [facility] Comment on above: Performed By: #### 2 [id number] #### [facility] [address] [place] [address] Protein [Mass/Vol] 8.0 g/dL High 6.0-7.8 [facility] Comment on above: Performed By: #### 2 [id number] #### [facility] [address] [place] [address] Lipase Levelon 05-22-2024 Lipase [Catalytic activity/Vol] 111 U/L High 13-58 [facility] Comment on above: Performed By: #### 2 [id number] #### [facility] [address] [place] [address] UA with Cult Rflxon 05-22-20 Type of Urine collection method Clean Catch Normal [facility] Comment on above: Performed By: #### 4 [id number] #### [facility] [address] [place] [address] eGFRon 05-22-2024 eGFR 119 mL/min/1.73 m2 Normal >=59 [facility] Comment on above: Order Comment: Order added by Discern Expert. Performed By: #### 1 [id number] #### [facility] [address] [place] [address] Basic Metabolic Profon 05-20 Anion gap [Moles/Vol] 16 mmol/L Normal 9-16 [facility] Comment on above: Performed By: #### B MP, LIP, LIVP, MG, CDP ####[address] , [place] 2685483 lab Director: Murtaza Arceo MD BUN/CRE Ratio 11 Normal 9-20 [facility] Comment on above: Performed By: #### B MP, LIP, LIVP, MG, CDP ####[address] , [place] 5730383 lab Director: Murtaza Arceo MD Calcium [Mass/Vol] 10.3 mg/dL Normal 8.6-10.4 [facility] Comment on above: Performed By: #### B MP, LIP, LIVP, MG, CDP ####[address] , [place] 6533183 lab Director: Murtaza Arceo MD Chloride [Moles/Vol] 103 mmol/L Normal 98-107 [facility] Comment on above: Performed By: #### B MP, LIP, LIVP, MG, CDP ####[address] , [place] 8585983 lab Director: Murtaza Arceo MD CO2 [Moles/Vol] 21 mmol/L Normal 20-31 [facility] Comment on above: Performed By: #### B MP, LIP, LIVP, MG, CDP ####[address] , [place] 6133183 lab Director: Murtaza Arceo MD Creatinine [Mass/Vol] 0.9 mg/dL Normal 0.50-0.90 [facility] Comment on above: Performed By: #### B MP, LIP, LIVP, MG, CDP ####[address] [place] [address] lab Director: Murtaza Arceo MD GFR/1.73 sq M.predicted among non-blacks MDRD (S/P/Bld) [Vol rate/Area] mL/min/{1.73_m2} Normal >60 [facility] Comment on above: Result Comment: Thes [...] renal tubular secretion. Performed By: #### B MP, LIP, LIVP, MG, CDP ####[address] , [place] [phone] Director: Murtaza Arceo MD Glucose [Mass/Vol] 128 mg/dL High 74-99 [facility] Comment on above: Performed By: #### B MP, LIP, LIVP, MG, CDP ####[address] [place] [address] Lab Director: Murtaza Arceo MD Potassium [Moles/Vol] 4.3 mmol/L Normal 3.7-5.3 [facility] Comment on above: Performed By: #### B MP, LIP, LIVP, MG, CDP ####[address] , [place] [phone] Director: Murtaza Arceo MD Sodium [Moles/Vol] 140 mmol/L Normal 136-145 [facility] Comment on above: Performed By: #### B MP, LIP, LIVP, MG, CDP ####[address] , [place] [phone] Director: Murtaza Arceo MD Urea nitrogen [Mass/Vol] 10 mg/dL Normal 6-20 [facility] Comment on above: Performed By: #### B MP, LIP, LIVP, MG, CDP ####[address] [place] [address] Lab Director: Murtaza Arceo MD CBC with Diffon 05-20-2024 Abs. Basophil 0.11 k/uL Normal 0.00-0.20 [facility] Comment on above: Performed By: #### B MP, LIP, LIVP, MG, CDP ####[address] , [place] 4321483 Lab Director: Murtaza Arceo MD Abs.Imm.Granulocyte 0.00 k/uL Normal 0.00-0.30 [facility] Comment on above: Performed By: #### B MP, LIP, LIVP, MG, CDP ####[address] , [id number] lab Director: Murtaza Arceo MD Abs.Neutrophil (Seg) 6.05 k/uL Normal 1.50-8.10 [facility] Comment on above: Performed By: #### B MP, LIP, LIVP, MG, CDP ####[address] , [place] [address] Lab Director: Murtaza Arceo MD Basophils/100 WBC (Bld) 1 % Normal 0-2 [facility] Comment on above: Performed By: #### B MP, LIP, LIVP, MG, CDP ####[address] , [id number] lab Director: Murtaza Arceo MD Eosinophils (Bld) [#/Vol] 0.22 10*3/uL Normal 0.00-0.44 [facility] Comment on above: Performed By: #### B MP, LIP, LIVP, MG, CDP ####[address] , [id number] lab Director: Murtaza Arceo MD Eosinophils/100 WBC (Bld) 2 % Normal 1-4 [facility] Comment on above: Performed By: #### B MP, LIP, LIVP, MG, CDP ####[address] , [place] 2244083 Lab Director: Murtaza Arceo MD Immature granulocytes/100 WBC (Bld) 0 % Normal 0 [facility] Comment on above: Performed By: #### B MP, LIP, LIVP, MG, CDP ####[address] , [place] 1553583 Lab Director: Murtaza Arceo MD Lymphocytes (Bld) [#/Vol] 4.26 10*3/uL High 1.10-3.70 [facility] Comment on above: Performed By: #### B MP, LIP, LIVP, MG, CDP ####[address] [place] [address] Lab Director: Murtaza Arceo MD Lymphocytes/100 WBC (Bld) 38 % Normal 24-43 [facility] Comment on above: Performed By: #### B MP, LIP, LIVP, MG, CDP ####[address] , [place] [address] Lab Director: Murtaza Arceo MD Monocytes (Bld) [#/Vol] 0.56 10*3/uL Normal 0.10-1.20 [facility] Comment on above: Performed By: #### B MP, LIP, LIVP, MG, CDP ####[address] , [place] 8892483 Lab Director: Murtaza Arceo MD Monocytes/100 WBC (Bld) 5 % Normal 3-12 [facility] Comment on above: Performed By: #### B MP, LIP, LIVP, MG, CDP ####[address] [place] [address] Lab Director: Murtaza Arceo MD Morphology Kenan (Bld) [Interp] Platelet scan shows Normal Platelets Normal [facility] Comment on above: Performed By: #### B MP, LIP, LIVP, MG, CDP ####[address] , [place] 7342883 Lab Director: Murtaza Arceo MD Neutrophil (Seg) 54 % Normal 36-65 [facility] Comment on above: Performed By: #### B MP, LIP, LIVP, MG, CDP ####[address] , [place] 9887483 Lab Director: Murtaza Arceo MD Erythrocyte distribution width (RBC) [Ratio] 12.6 % Normal 11.8-14.4 [facility] Comment on above: Performed By: #### B MP, LIP, LIVP, MG, CDP ####[address] [place] [address] Lab Director: Murtaza Arceo MD Hematocrit (Bld) [Volume fraction] 46.5 % Normal 36.3-47.1 [facility] Comment on above: Performed By: #### B MP, LIP, LIVP, MG, CDP ####[address] [place] [address] Lab Director: Murtaza Arceo MD Hemoglobin (Bld) [Mass/Vol] 15.8 g/dL High 11.9-15.1 [facility] Comment on above: Performed By: #### B MP, LIP, LIVP, MG, CDP ####[address] , [place] 3834583 Lab Director: Murtaza Arceo MD MCH (RBC) [Entitic mass] 30.4 pg Normal 25.2-33.5 [facility] Comment on above: Performed By: #### B MP, LIP, LIVP, MG, CDP ####[address] , [place] 4946983 Lab Director: Murtaza Arceo MD MCHC (RBC) [Mass/Vol] 34.0 g/dL Normal 28.4-34.8 [facility] Comment on above: Performed By: #### B MP, LIP, LIVP, MG, CDP ####[address] [place] [address] Lab Director: Murtaza Arceo MD MCV (RBC) [Entitic vol] 89.4 fL Normal 82.6-102.9 [facility] Comment on above: Performed By: #### B MP, LIP, LIVP, MG, CDP ####[address] [place] [address] Lab Director: Murtaza Arceo MD NRBC Automated 0.0 per 100 WBC Normal 0.0 [facility] Comment on above: Performed By: #### B MP, LIP, LIVP, MG, CDP ####[address] [place] [address] Lab Director: Murtaza Arceo MD Platelet Count See Reflexed IPF Result Normal 138-453 [facility] Comment on above: Performed By: #### B MP, LIP, LIVP, MG, CDP ####[address] , [phone] Director: Murtaza Arceo MD Platelet, Fluoresc. 137 k/uL Low 138-453 [facility] Comment on above: Performed By: #### B MP, LIP, LIVP, MG, CDP ####[address] , [place] 6698383 Lab Director: Murtaza Arceo MD PLT, Immature Fract. 7.0 % Normal 1.1-10.3 [facility] Comment on above: Performed By: #### B MP, LIP, LIVP, MG, CDP ####[address] [place] [address] Lab Director: Murtaza Arceo MD RBC (Bld) [#/Vol] 5.20 10*6/uL High 3.95-5.11 [facility] Comment on above: Performed By: #### B MP, LIP, LIVP, MG, CDP ####[address] , [place] 2194883 Lab Director: Murtaza Arceo MD WBC (Bld) [#/Vol] 11.2 10*3/uL Normal 3.5-11.3 [facility] Comment on above: Performed By: #### B MP, LIP, LIVP, MG, CDP ####[address] , [place] 3509883 Lab Director: Murtaza Arceo MD Lactic Acidon 05-20-2024 Lactate [Moles/Vol] 1.5 mmol/L Normal 0.5-2.2 [facility] Comment on above: Performed By: #### L ACTIC ####[address] , [place] 5414883 Lab Director: Murtaza Arceo MD Lipaseon 05-20-2024 Lipase [Catalytic activity/Vol] 64 U/L High 13-60 [facility] Comment on above: Performed By: #### B MP, LIP, LIVP, MG, CDP ####[address] , [place] 9400683 Lab Director: Murtaza Arceo MD Liver Profileon 6 Albumin [Mass/Vol] 4.6 g/dL Normal 3.5-5.2 [facility] Comment on above: Performed By: #### B MP, LIP, LIVP, MG, CDP ####[address] , [place] 2937983 Lab Director: Murtaza Arceo MD Albumin/Glob Ratio 1.5 Normal 1.0-2.5 [facility] Comment on above: Performed By: #### B MP, LIP, LIVP, MG, CDP ####[address] , [place] 2906583 Lab Director: Murtaza Arceo MD Alkaline Phos 119 U/L High 35-104 [facility] Comment on above: Performed By: #### B MP, LIP, LIVP, MG, CDP ####[address] , [place] 8797383 Lab Director: Murtaza Arceo MD ALT [Catalytic activity/Vol] 75 U/L [address] Comment on above: Performed By: #### B MP, LIP, LIVP, MG, CDP ####[address] , [place] 8912883 Lab Director: Murtaza Arceo MD AST [Catalytic activity/Vol] 74 U/L [address] Comment on above: Performed By: #### B MP, LIP, LIVP, MG, CDP ####[address] , [place] 2774483 lab Director: Murtaza Arceo MD Bilirubin [Mass/Vol] 0.6 mg/dL Normal 0.00-1.20 [facility] Comment on above: Performed By: #### B MP, LIP, LIVP, MG, CDP ####[address] , [place] 9260983 Lab Director: Murtaza Arceo MD Bilirubin, Indirect 0.4 mg/dL Normal 0.0-1.0 [facility] Comment on above: Performed By: #### B MP, LIP, LIVP, MG, CDP ####[address] , [place] 0577183 Lab Director: Murtaza Arceo MD Bilirubin.indirect [Mass/Vol] 0.2 mg/dL Normal 0.00-0.30 [facility] Comment on above: Performed By: #### B MP, LIP, LIVP, MG, CDP ####[address] [place] [address] lab Director: Murtaza Arceo MD Protein [Mass/Vol] 7.8 g/dL Normal 6.6-8.7 [facility] Comment on above: Performed By: #### B MP, LIP, LIVP, MG, CDP ####[facility] [place] [address] Lab Director: Murtaza Arceo MD Magnesiumon 05-20-2024 Magnesium [Mass/Vol] 2.2 mg/dL Normal 1.6-2.6 [facility] Comment on above: Performed By: #### B MP, LIP, LIVP, MG, CDP ####[facility] [place] [address] lab Director: Murtaza Arceo MD .UA Microscp Aon 05-15-2024 UA Mucus Present Normal Absent [facility] Comment on above: Performed By: #### . Automated Diff #### [place] [address] UA RBC Quant 2 /HPF Normal 0-5 [facility] Comment on above: Performed By: #### . Automated Diff #### [place] [address] UA Squepi Cells Quant 1 /HPF Normal 0-29 [facility] Comment on above: Performed By: #### . Automated Diff #### [place] [address] UA WBC Quant 4 /HPF Normal 0-5 [facility] Comment on above: Performed By: #### . Automated Diff #### [place] [address] .eGFRon 05-15-2024 GFR/1.73 sq M.predicted MDRD (S/P/Bld) [Vol rate/Area] mL/min/{1.73_m2} Normal >=60 [facility] Comment on above: Result Comment: [facility] have implemented the eGFR calculation [...] 1 Age = years Performed By: #### C BC #### [place] [id number] CBC w/ Diffon 05-15-2024 Erythrocyte distribution width (RBC) [Ratio] 13.6 % Normal 11.6-14.8 [facility] Comment on above: Performed By: #### . Automated Diff #### [place] [id number] Hematocrit (Bld) [Volume fraction] 44.7 % Normal 36.0-46.0 [facility] Comment on above: Performed By: #### . Automated Diff #### [place] [id number] Hemoglobin (Bld) [Mass/Vol] 15.1 g/dL Normal 12.0-16.0 [facility] Comment on above: Performed By: #### . Automated Diff #### [place] [id number] MCH (RBC) [Entitic mass] 29.9 pg Normal 27.0-35.0 [facility] Comment on above: Performed By: #### . Automated Diff #### [place] [id number] MCHC 33.7 % Normal 31.0-37.0 [facility] Comment on above: Performed By: #### . Automated Diff #### [place] [id number] MCV (RBC) [Entitic vol] 88.8 fL Normal 80.0-100.0 [facility] Comment on above: Performed By: #### . Automated Diff #### [address] [address] Platelet 339 x10*3/mcL Normal 150-450 [facility] Comment on above: Performed By: #### . Automated Diff #### [address] [address] Platelet mean volume (Bld) [Entitic vol] 8.4 fL Normal 6.7-10.6 [facility] Comment on above: Performed By: #### . Automated Diff #### [address] [address] RBC 5.04 x10*6/mcL Normal 3.80-5.20 [facility] Comment on above: Performed By: #### . Automated Diff #### [address] [address] WBC 11.3 x10*3/mcL High 4.5-11.0 [facility] Comment on above: Performed By: #### . Automated Diff #### [address] [address] CMPon 05-15-2024 Albumin [Mass/Vol] 4.4 g/dL Normal 3.2-4.9 [facility] Comment on above: Performed By: #### . Automated Diff #### [address] [address] Albumin/Globulin [Mass ratio] 1.0 {ratio} Low 1.1-2.2 [facility] Comment on above: Performed By: #### . Automated Diff #### [address] [address] Alk Phos 93 IU/L High 32-91 [facility] Comment on above: Performed By: #### . Automated Diff #### [address] [address] ALT [Catalytic activity/Vol] 83 U/L High 14-54 [facility] Comment on above: Performed By: #### . Automated Diff #### [address] [address] Anion gap [Moles/Vol] 12 mmol/L Normal 4-12 [facility] Comment on above: Performed By: #### . Automated Diff #### [address] [address] AST [Catalytic activity/Vol] 102 U/L High 15-41 [facility] Comment on above: Performed By: #### . Automated Diff #### [address] [address] Bili Total 0.7 mg/dL Normal 0.3-1.2 [facility] Comment on above: Performed By: #### . Automated Diff #### [address] [address] Calcium [Mass/Vol] 9.9 mg/dL Normal 8.5-10.3 [facility] Comment on above: Performed By: #### . Automated Diff #### [address] [address] Chloride [Moles/Vol] 102 mmol/L Normal 98-110 [facility] Comment on above: Performed By: #### . Automated Diff #### [address] [address] CO2 [Moles/Vol] 23 mmol/L Normal 22-32 [facility] Comment on above: Performed By: #### . Automated Diff #### [address] [address] Creatinine [Mass/Vol] 0.94 mg/dL Normal 0.44-1.03 [facility] Comment on above: Performed By: #### . Automated Diff #### [address] [address] Glucose [Mass/Vol] 154 mg/dL High 70-99 [facility] Comment on above: Performed By: #### . Automated Diff #### [address] [address] Potassium [Moles/Vol] 3.9 mmol/L Normal 3.4-4.8 [facility] Comment on above: Performed By: #### . Automated Diff #### [address] [address] Protein [Mass/Vol] 8.6 g/dL High 6.5-8.1 [facility] Comment on above: Performed By: #### . Automated Diff #### [address] [address] Sodium [Moles/Vol] 137 mmol/L Normal 133-142 [facility] Comment on above: Performed By: #### . Automated Diff #### [address] [address] Urea nitrogen [Mass/Vol] 13 mg/dL Normal 8-26 [facility] Comment on above: Performed By: #### . Automated Diff #### [address] [address] Urea nitrogen/Creatinine [Mass ratio] 13.8 mg/mg Normal 10.0-20.0 [facility] Comment on above: Performed By: #### . Automated Diff #### [address] [address] Diff Autoon 05-15-2024 Baso Absolute 0.1 x10*3/mcL Normal 0.0-0.2 [facility] Comment on above: Performed By: #### . Automated Diff #### [address] [address] Basophils/100 WBC (Bld) 0.7 % Normal 0.0-1.5 [facility] Comment on above: Performed By: #### . Automated Diff #### [address] [address] Eos Absolute 0.2 x10*3/mcL Normal 0.0-0.4 [facility] Comment on above: Performed By: #### . Automated Diff #### [address] [address] Eosinophils/100 WBC (Bld) 1.6 % Normal 0.0-5.4 [facility] Comment on above: Performed By: #### . Automated Diff #### [address] [address] Lymph Absolute 4.3 x10*3/mcL Normal 1.0-4.8 [facility] Comment on above: Performed By: #### . Automated Diff #### [address] [address] Lymphocytes/100 WBC (Bld) 37.5 % Normal 27.2-40.8 [facility] Comment on above: Performed By: #### . Automated Diff #### [address] [address] [place] Absolute 0.5 x10*3/mcL Normal 0.1-1.1 [facility] Comment on above: Performed By: #### . Automated Diff #### [address] [address] Monocytes/100 WBC (Bld) 4.7 % Normal 3.7-11.9 [facility] Comment on above: Performed By: #### . Automated Diff #### [address] [address] Neutro Absolute 6.3 x10*3/mcL Normal 1.8-7.7 [facility] Comment on above: Performed By: #### . Automated Diff #### [address] [address] Neutro Auto 55.5 % Normal 47.2-70.8 [facility] Comment on above: Performed By: #### . Automated Diff #### [address] [address] ED Clinical Summaryon 2023 ED Clinical Summary [address] [id number] ED Clinical Summary Person Information Name: Gael Ruby/[facility] Age: 28 Years : 1995 Sex: Female PCP: Chantel GREWAL, Yossi Paz Marital Status: Phone: Race: White Ethnicity: Not or Language: Somali Visit Reason: Abdominal pain; abdominal pain Acuity: 3 Enc Type: Emergency Med Service: Emergency Medicine Arrival: 05/15/2024 19:01:15 Discharge: 05/15/2024 21:20:00 LOS: 000 02:19 Checkin: 05/15/2024 19:01:15 Checkout: 05/15/2024 21:20:00 Dispo Type: Home or Self Care Address: [address] [place] [phone] Provider Notes: Diagnosis: 1:Left sided abdominal pain; 2:Nausea Problems No Problems Documented Smoking Status: Smoking Status 5-9 cigarettes (between 1/4 to 1/2 pack)/day in last 30 days Functional Status: Sensory Deficits: History of Falls: Mobility Assistance Prior to Admission: ADLs: Current Level of Assistance for Self-Care/Mobility: Cognitive Status: Allergies Latex (Rash) (Hives) penicillin (Hives) (Itchy) (Nausea) Pyridium (Anxiety increase) Toradol (Hives) (Shortness of breath) (Itchy) egg-containing compound (Nausea) traMADol (Nausea) Laboratory or Other Results This Visit (last charted value for your 05/15/2024 visit) Hematology 05/15/2024 7:19 PM WBC: 11.3 x10 RBC: 5.04 x10 Neutro Auto: 55.5 % -- Normal range between ( 47.2 and 70.8 ) Lymph Auto: 37.5 % -- Normal range between ( 27.2 and 40.8 ) [place] Auto: 4.7 % -- Normal range between ( 3.7 and 11.9 ) Eos Auto: 1.6 % -- Normal range between ( 0.0 and 5.4 ) Basophil Auto: 0.7 % -- Normal range between ( 0.0 and 1.5 ) Baso Absolute: 0.1 x10 MCV: 88.8 fL -- Normal range between ( 80.0 and 100.0 ) MCHC: 33.7 % -- Normal range between ( 31.0 and 37.0 ) Lymph Absolute: 4.3 x10 Hct: 44.7 % -- Normal range between ( 36.0 and 46.0 ) [place] Absolute: 0.5 x10 MCH: 29.9 pg -- Normal range between ( 27.0 and 35.0 ) Neutro Absolute: 6.3 x10 Hgb: 15.1 g/dL -- Normal range between ( 12.0 and 16.0 ) Mean Platelet Volume: 8.4 fL -- Normal range between ( 6.7 and 10.6 ) Platelet: 339 x10 Eos Absolute: 0.2 x10 RDW: 13.6 % -- Normal range between ( 11.6 and 14.8 ) Urinalysis 05/15/2024 7:30 PM UA Color: Yellow UA Urobilinogen: 0.2 mg/dL UA Bili: Negative UA Ketones: Trace mg/dL UA Leukocyte Esterase: Negative UA Nitrite: Negative UA Glucose: Normal mg/dL UA Protein: 30 mg/dL UA Blood: Negative UA Spec Grav: 1.035 -- Normal range between ( 1.003 and 1.035 ) UA pH: 6.0 UA Clarity: Clear UA Source: Clean Catch UA Mucus: Present /LPF UA WBC Quant: 4 /HPF -- Normal range between ( 0 and 5 ) UA RBC Quant: 2 /HPF -- Normal range between ( 0 and 5 ) UA Squepi Cells Quant: 1 /HPF -- Normal range between ( 0 and 29 ) Chemistry 05/15/2024 7:19 PM Creatinine Lvl: 0.94 mg/dL -- Normal range between ( 0.44 and 1.03 ) BUN: 13 mg/dL -- Normal range between ( 8 and 26 ) Glucose Lvl: 154 mg/dL -- Normal range between ( 70 and 99 ) Potassium Lvl: 3.9 mmol/L -- Normal range between ( 3.4 and 4.8 ) AST: 102 IU/L -- Normal range between ( 15 and 41 ) ALT: 83 IU/L -- Normal range between ( 14 and 54 ) Sodium Lvl: 137 mmol/L -- Normal range between ( 133 and 142 ) Lipase Lvl: 56 IU/L -- Normal range between ( 22 and 51 ) Calcium Lvl: 9.9 mg/dL -- Normal range between ( 8.5 and 10.3 ) Albumin Lvl: 4.4 g/dL -- Normal range between ( 3.2 and 4.9 ) Total Protein: 8.6 g/dL -- Normal range between ( 6.5 and 8.1 ) Bili Total: 0.7 mg/dL -- Normal range between ( 0.3 and 1.2 ) Alk Phos: 93 IU/L -- Normal range between ( 32 and 91 ) Chloride: 102 mmol/L -- Normal range between ( 98 and 110 ) CO2: 23 mmol/L -- Normal range between ( 22 and 32 ) Anion Gap: 12 -- Normal range between ( 4 and 12 ) Estimated GFR: >60 mL/min/1.73m? BUN Crea Ratio: 13.8 -- Normal range between ( 10.0 and 20.0 ) AG Ratio: 1.0 -- Normal range between ( 1.1 and 2.2 ) Measurements: Height: Weight: 112.5 kg Blood Pressure: /93 mmHg BMI: Procedures No Procedures Documented Immunizations No Immunizations Documented This Visit Final Med List: Medications That Were Updated - Follow Current Instructions [facility] [id number], [address], [place] [id number], [phone] Current promethazine (promethazine 25 mg oral tablet) 1 Tabs Oral (given by mouth) every 6 hours as needed as needed for nausea/vomiting. Refills: 0. Last Dose: ___ Other Medications Current promethazine (promethazine 12.5 mg oral tablet) 1 Tabs Oral (given by mouth) every 4 hours as needed as needed for nausea/vomiting for 3 Days. Refills: 0. Last Dose: ___ Medications that have not changed Other Medications albuterol (albuterol 90 mcg/inh inhalation aerosol) 2 Puffs Inhale (breathe in) (more content not included)... Normal [facility] ED Note-Physicianon 05-15-20 ED Note-Physician Chief Complaint c/o abdominal pain for the past month - states she has gastroparesis History of Present Illness Patient presents to ED c/o acute on chronic abdominal pain and nausea that has worsened in the past 2 days. She reports recently being diagnosed w/gastroparesis and is scheduled to see GI in June. Patient denies fever, URI symptoms, vomiting, diarrhea, rectal bleeding, dysuria and hematuria. Symptoms are aggravated/alleviated by nothing. Patient has been taking Zofran and Phenergan at home w/little relief. Review of Systems General: [Negative for fever, chills, weakness, malaise] Head/Face: [Negative for injury, pain] Eyes: [Negative for injury, redness, pain, discharge] Neck: [Negative for injury, pain, swelling, stiffness] Cardiovascular: [Negative for chest pain, palpitations, edema] Respiratory: [Negative for shortness of breath, cough, wheezing, pleuritic chest pain] Abdomen/GI: [Positive for left sided pain, nausea. Negative for distention, vomiting, diarrhea, hematemesis, melena, hematochezia] : [Negative for frequency, dysuria, hematuria, hesitancy] Skin: [Negative for injury, rash, discoloration] All other systems reviewed are negative and normal Physical Exam General: [Alert, awake, afebrile, well hydrated, no apparent distress] Eyes: [PERRL, extraocular movements intact, clear conjunctiva] Head/Face: [Normocephalic, atraumatic] Neck: [Non-tender, supple, no nuchal rigidity, full range of motion] Cardiovascular: [Regular rate and rhythm, no appreciated murmurs, normal S1 and S2, strong radial pulses w/intact distal perfusion] Respiratory: [Lungs clear to auscultation w/out wheezes, rhonchi, or rales, normal excursion, no accessory muscle use, no stridor] Abdomen/GI: [Left upper quadrant tender to palpation. Soft all quadrants, non-distended, no palpable masses, no rebound, no guarding. Bowel sounds active in all quadrants] : [No costovertebral angle tenderness] Skin: [[place], warm, dry, no injury, no rashes] Neuro: [Alert and oriented x 3, GCS 15, Normal mentation and speech. Moves all extremities w/out motor or sensory deficit, gait is steady] Psych: [Normal mood and affect, thought process is clear and linear] Vitals & Measurements T: 36.4 ?C (Oral) HR: 105 (Peripheral) RR: 18 BP: 140/93 SpO2: 94% HT: 172 cm WT: 112.5 kg (Dosing) Additional Vitals No qualifying data available. Medical Decision Making MEDICAL DECISION MAKING Number and Complexity of Problems Differential Diagnosis: _ MDM Data External documents reviewed: _ My EKG interpretation: _ My CT interpretation: _ My X-ray interpretation: _ My Ultrasound interpretation: _ Decision rules/scores evaluated: _ Discussed with: _ Decision rules/scores evaluated: _ ? HEART Score: Not Completed ? PERC Rule: _ ? NEXUS C-spine Criteria: _ ? [place] Ankle Rule: _ ? [place] Knee Rule: _ ? Wells Criteria for DVT: _ ? Wells Criteria for PE: _ Discussed with: _ Treatment and Disposition ED Course: _Patient presents to ED c/o acute on chronic abdominal pain and nausea that has worsened in the past 2 days. She reports recently being diagnosed w/gastroparesis and is scheduled to see GI in June. Patient denies fever, URI symptoms, vomiting, diarrhea, rectal bleeding, dysuria and hematuria. Symptoms are aggravated/alleviated by nothing. Patient has been taking Zofran and Phenergan at home w/little relief. Left upper quadrant is tender to palpation. Vitals are stable. Labs are stable/similar to previous. Patient has been seen in ED multiple times in the past w/similar symptoms, last CT was 2 weeks ago and was normal. Symptoms have improved here in ED. She does report need for nausea medication at home. Will d/c home and have her follow up w/GI as scheduled. She is advised to return for any worsening symptoms, inability to tolerate fluids, fever or other concerns. The results of pertinent diagnostic studies and exam findings were discussed. The patient?s provisional diagnosis and plan of care were [...] discussed with the patient and family present. Shared decision making: _ Code status: _ Reexamination/Reevalua tion Patient is resting comfortably in room, no distress. Assessment/Plan 1. Left sided abdominal pain 2. Nausea Orders: promethazine, 1 tabs, Oral, q6hr, PRN, # 12 tabs, 0 Refill(s), Pharmacy: [facility] [id number] sodium chloride, 10 mL, IV Push, Injection, As Indicated, PRN flush, First Dose: 05/15/24 19:16:00 EDT, Dispense From Location: [facility], 05/15/24 19:16:00 EDT Discharge Patient NPO Peripheral IV Insert and Ma (more content not included)... Normal [facility] Lipaseon 05-15-2024 Lipase Lvl 56 IU/L High 22-51 [facility] Comment on above: Performed By: #### . Urinalysis Microscopic Auto #### [place] [id number] UA w Culture if Indon 2023 Color (U) Yellow Normal Yellow [facility] Comment on above: Performed By: #### . Automated Diff #### [place] [address] Ketones Ql (U) Trace Abnormal Negative [facility] Comment on above: Performed By: #### . Automated Diff #### [place] [address] UA Blood Negative Normal Negative [facility] Comment on above: Performed By: #### . Automated Diff #### [place] [id number] UA Clarity Clear Normal Clear [facility] Comment on above: Performed By: #### . Automated Diff #### [place] [id number] UA Glucose Normal Normal Negative [facility] Comment on above: Performed By: #### . Automated Diff #### [place] [id number] UA Leukocyte Esterase Negative Normal Negative [facility] Comment on above: Performed By: #### . Automated Diff #### [place] [id number] UA Nitrite Negative Normal Negative [facility] Comment on above: Performed By: #### . Automated Diff #### [place] [address] UA pH 6.0 Normal 4.5 - 7.8 [facility] Comment on above: Performed By: #### . Automated Diff #### [address] [address] UA Protein 30 mg/dL Abnormal Negative [facility] Comment on above: Performed By: #### . Automated Diff #### [address] [address] UA Source Clean Catch Normal [facility] Comment on above: Performed By: #### . Automated Diff #### [address] [address] UA Spec Grav 1.035 Normal 1.003-1.035 [facility] Comment on above: Performed By: #### . Automated Diff #### [address] [address] UA Urobilinogen 0.2 mg/dL Normal 0.2 - 1.0 [facility] Comment on above: Performed By: #### . Automated Diff #### [address] [address] Urobilinogen (U) [Mass/Vol] Negative Normal Negative [facility] Comment on above: Performed By: #### . Automated Diff #### [address] [address] NM GASTRIC EMPTYINGon 2023 NM GASTRIC EMPTYING Normal [facility] Stomach Views for gastric emptying W radionuclide Andi 05-14-2024 Severely delayed gastric emptying. [facility] EXAMINATION: NUCLEAR MEDICINE GASTRIC EMPTYING STUDY 05/14/2024 [...] retention, hiatal hernia or reflux was observed. [facility] RIS CONSOLIDATED Chadd Acosta MD - 05/14/2024 EXAMINATION: NUCLEAR MEDICINE GASTRIC EMPTYING [...] was observed. IMPRESSION: Severely delayed gastric emptying. [facility] Radiology Study observation (narrative) [facility] NM Stomach Views for gastric emptying W radionuclide POOrdered By: Chadd Acosta on 05-14-2024 [facility] Work Phone: No Panel Informationon 05-04 Tobacco smoking status Current Tobacco User Inva lid Interpretation Code [facility] [employer] .UA Microscp Aon 05-01-2024 UA Mucus Present Normal Absent [facility] Comment on above: Performed By: #### . Urinalysis Microscopic Auto #### [facility] [address] [place] [address] UA RBC Quant 0 /HPF Normal 0-5 [facility] Comment on above: Performed By: #### . Urinalysis Microscopic Auto #### [facility] [address] [place] [address] UA Squepi Cells Quant 2 /HPF Normal 0-29 [facility] Comment on above: Performed By: #### . Urinalysis Microscopic Auto #### [facility] [address] [place] [address] UA WBC Quant 1 /HPF Normal 0-5 [facility] Comment on above: Performed By: #### . Urinalysis Microscopic Auto #### [facility] [address] [place] [address] ED Clinical Summaryon 2023 ED Clinical Summary [facility] [address] [place] [address] ED Clinical Summary Person Information Name: Gael Ruby Josep/[facility]_[place] Age: 28 Years : 1995 Sex: Female PCP: Yossi Golden MD Marital Status: Phone: Race: White Ethnicity: Not or Language: Somali Visit Reason: Abdominal pain; abdominal pain Acuity: 3 Enc Type: Emergency Med Service: Emergency Medicine Arrival: 05/01/2024 19:42:28 Discharge: 05/01/2024 21:35:00 LOS: 000 01:53 Checkin: 05/01/2024 19:42:28 Checkout: 05/01/2024 21:35:00 Dispo Type: Home or Self Care Address: [address] [place] [phone] Provider Notes: History of Present Illness 28-year-old?female history of ADD, anxiety, bladder disorder, depression?and PCOS?over the last couple of weeks has been presenting?recurrently for abdominal pain intractable nausea and vomiting. ?Patient has had multiple CT abdomen done and lab work done which are unremarkable.? Patient was supposed to follow-up with?GI?but unable to get an appointment till June. ?Patient claims that she did use marijuana earlier this morning.? Did have sandwich for lunch and then has not been able to keep anything down. ?Denies any fevers or chills denies any chest pain shortness of breath denies any diarrhea has been having regular bowel movements. ?Patient denies any?fevers or chills. ?Denies any cough URI symptoms Review of Systems As reviewed in the HPI. All other systems reviewed are negative or normal. Physical Exam CONSTITUTIONAL:?No apparent distress, well appearing SKIN:?Warm, dry, no jaundice, hives or petechiae EYES:?Pupils are equally round, extraocular movements intact without nystagmus, clear conjunctiva, non-icteric sclera HENT:?Normocephalic, atraumatic, moist mucus membranes, oropharynx clear without exudates NECK:?Nontender and supple with no nuchal rigidity, no lymphadenopathy, full range of motion PULMONARY:?Clear to auscultation without wheezes, rhonchi, or rales, normal excursion, no accessory muscle use and no stridor CARDIOVASCULAR:?Regula r rate, rhythm, normal S1 and S2. No appreciated murmurs. Strong radial pulses with intact distal perfusion GASTROINTESTINAL:?Soft , non-tender, non-distended, no palpable masses, no rebound or guarding GENITOURINARY:?No costovertebral angle tenderness to palpation LYMPHATICS:?No edema in lower extremities, no lymphadenopathy MUSCULOSKELETAL:?Extre mities are nontender to palpation and have no gross deformity, no edema, redness, or swelling NEUROLOGIC:?Alert and oriented x 3, GCS 15, normal mentation and speech. Moves all extremities x 4 without motor or sensory deficit, gait is stable without ataxia PSYCHIATRIC:?Normal mood and affect, thought process is clear and linear Diagnosis: 1:Gastroparesis; 2:Cannabinoid hyperemesis syndrome Problems No Problems Documented Smoking Status: Smoking Status 5-9 cigarettes (between 1/4 to 1/2 pack)/day in last 30 days Functional Status: Sensory Deficits: History of Falls: Mobility Assistance Prior to Admission: ADLs: Current Level of Assistance for Self-Care/Mobility: Cognitive Status: Allergies Latex (Rash) (Hives) penicillin (Hives) (Itchy) (Nausea) Pyridium (Anxiety increase) Toradol (Hives) (Shortness of breath) (Itchy) egg-containing compound (Nausea) traMADol (Nausea) Laboratory or Other Results This Visit (last charted value for your 05/01/2024 visit) Urinalysis 05/01/2024 8:30 PM UA Color: Light-Yellow UA Urobilinogen: Normal mg/dL UA Bili: Negative UA Ketones: Negative mg/dL UA Leukocyte Esterase: Negative UA Nitrite: Negative UA Glucose: 70 mg/dL UA Protein: 10 mg/dL UA Blood: Negative UA Spec Grav: 1.022 -- Normal range between ( 1.003 and 1.035 ) UA pH: 6.0 UA Clarity: Clear UA Source: Clean Catch UA Mucus: Present /LPF UA WBC Quant: 1 /HPF -- Normal range between ( 0 and 5 ) UA RBC Quant: 0 /HPF -- Normal range between ( 0 and 5 ) UA Squepi Cells Quant: 2 /HPF -- Normal range between ( 0 and 29 ) Chemistry 05/01/2024 8:30 PM Urine Preg: Negative Measurements: Height: Weight: 113.3 kg Blood Pressure: /77 mmHg BMI: Procedures No Procedures Documented Immunizations No Immunizations Documented This Visit Final Med List: Medications that have not changed Other Medications albuterol (albuterol 90 mcg/inh inhalation aerosol) 2 Puffs Inhale (breathe in) every 6 hours as needed as needed for wheezing. Last Dose: ___ clindamycin (clindamycin 300 mg oral capsule) 1 Capsules Oral (given by mouth) every 6 hours. Last Dose: ___ dulaglutide (Trulicity Pen 3 mg/0.5 mL subcutaneous solution) 0.5 Milliliter Subcutaneous (under the skin) Every Saturday. Last Dose: ___ gabapentin (gabapentin 100 mg oral capsule) 1 Capsules Oral (given by mouth) 2 times a da (more content not included)... Normal [facility] ED Note-Physicianon 05-01-20 ED Note-Physician Chief Complaint pt reports abdominal pain for about 3 weeks, she reports that she has been here 3 times recently History of Present Illness 28-year-old female history of ADD, anxiety, bladder disorder, depression and PCOS over the last couple of weeks has been presenting recurrently for abdominal pain intractable nausea and vomiting. Patient has had multiple CT abdomen done and lab work done which are unremarkable. Patient was supposed to follow-up with GI but unable to get an appointment till June. Patient claims that she did use marijuana earlier this morning. Did have sandwich for lunch and then has not been able to keep anything down. Denies any fevers or chills denies any chest pain shortness of breath denies any diarrhea has been having regular bowel movements. Patient denies any fevers or chills. Denies any cough URI symptoms Review of Systems As reviewed in the [...] pulses with intact distal perfusion GASTROINTESTINAL: Soft, non-tender, non-distended, no palpable masses, no rebound or [...] clear and linear Vitals & Measurements T: 36.7 ?C (Oral) HR: 104 (Peripheral) RR: 18 BP: 156/77 SpO2: 96% WT: 113.3 kg (Dosing) Additional Vitals No qualifying data available. Procedure No qualifying data available. ASA Documentation Assessment/Plan 1. Gastroparesis 2. Cannabinoid hyperemesis syndrome EKG: MDM: 28-year-old female history of gastroparesis presenting with intractable nausea and vomiting. Patient has been seen multiple times for similar complaints in the ED. Examination was unremarkable mucous membranes moist. Patient symptoms seem to be secondary to the hyperemesis from cannabinoids. Patient was given Haldol 2.5 mg IV along with Zofran and a fluid bolus. Do not feel the need for repeat labs at the moment. Will check a urine for ketones. test to be tested. DIFFERENTIAL DIAGNOSIS: (In no particular order and not limited to following) Hyperemesis cannabinoids. Data and analysis: Patient otherwise appears to be stable and in no apparent distress. Independent History: I discussed the case with patient and patient's relatives who were present at bedside who helped with shared decision making. Independent Clinician: None Labs/Imaging Reviewed: I have independently visualized and interpreted images/labs pertinent positives and negatives as follows: Lab work was unremarkable. Patient UA unremarkable Review of Past Medical/External records: Previous DC Summaries/Clinic Notes/Testing Reviewed if available. Notable Findings in MDM section above. I did review patient chart extensively Patient given IV fluid bolus Haldol and Zofran in the ED per patient to be discharged to continue with home medication was given prescription for Bentyl along with the other medications she is already on for the gastroparesis vital signs stable time of discharge. I did discuss with GI we will try to see the patient earlier than June. Vital signs stable time of discharge. Diagnosis: Hyperemesis cannabinoids Disposition: Patient is /discharged home to follow up with PCP in 2-3 days. Orders: haloperidol, 2.5 mg, IV Push, Injection, Once, First Dose: 05/01/24 20:07:00 EDT, Stop Date: 05/01/24 20:07:00 EDT, STAT, Dispense From Location: [facility], 05/01/24 20:07:00 EDT Lactated Ringers Injection intravenous solution, 1,000 mL, Rate: 983.61 mL/hr, Infuse Over: 61 minutes, IV Bolus, Soln-IV, Once, First Dose: 05/01/24 20:07:00 EDT, Stop Date: 05/01/24 20:07:00 EDT, Dispense From Location: [facility], 05/01/24 20:07:00 EDT ondansetron, 4 mg, Oral, Tab-Dis, Once, PRN nausea, First Dose: 05/01/24 20:01:00 EDT, Dispense From Location: [facility], 05/01/24 20:01:00 EDT Test, Urine, Qualitative Urinalysis with Culture, if indicated Refresh vitals and sections below: Problem (more content not included)... Normal [facility] UA w Culture if Indon 2023 Color (U) Light-Yellow Normal Yellow [facility] Comment on above: Performed By: #### . Automated Diff #### [address] [address] Glucose (U) [Mass/Vol] 70 mg/dL Abnormal Negative [facility] Comment on above: Performed By: #### . Automated Diff #### [place] [address] Ketones Ql (U) Negative Normal Negative [facility] Comment on above: Performed By: #### . Automated Diff #### [place] [address] UA Blood Negative Normal Negative [facility] Comment on above: Performed By: #### . Automated Diff #### [place] [id number] UA Clarity Clear Normal Clear [facility] Comment on above: Performed By: #### . Automated Diff #### [place] [address] UA Leukocyte Esterase Negative Normal Negative [facility] Comment on above: Performed By: #### . Automated Diff #### [place] [address] UA Nitrite Negative Normal Negative [facility] Comment on above: Performed By: #### . Automated Diff #### [place] [address] UA pH 6.0 Normal 4.5 - 7.8 [facility] Comment on above: Performed By: #### . Automated Diff #### [place] [address] UA Protein 10 mg/dL Normal Negative [facility] Comment on above: Performed By: #### . Automated Diff #### [place] [address] UA Source Clean Catch Normal [facility] Comment on above: Performed By: #### . Automated Diff #### [place] [id number] UA Spec Grav 1.022 Normal 1.003-1.035 [facility] Comment on above: Performed By: #### . Automated Diff #### [place] [id number] UA Urobilinogen Normal Normal 0.2 - 1.0 [facility] Comment on above: Performed By: #### . Automated Diff #### [facility] [address] [place] [address] Urobilinogen (U) [Mass/Vol] Negative Normal Negative [facility] Comment on above: Performed By: #### . Automated Diff #### [facility] [address] [place] [address] XR Abdomen 2 Viewson 024 XR Abdomen 2 Views XR Abdomen 2 Views, 04/27/2024 8:39 PM CDT: History: Bowel obstruction, . Comparison: None. Technique: 2 view abdomen Findings: The bowel gas pattern is nonobstructive. There is no evidence of free intra-abdominal air. There is no evidence of organomegaly or abnormal intra-abdominal calcifications. Impression: Nonobstructive bowel gas pattern without evidence of free air. Final Dictated by: Malena Avila MD Dictated DT/TM: 04/28/2024 0:02 am Signed by: Malena Avila MD Signed (Electronic Signature): 04/28/2024 0:02 am (If Report Is Signed, Electronically Signed in Other Vendor System) Normal [facility] .eGFRon 04-27-2024 GFR/1.73 sq M.predicted MDRD (S/P/Bld) [Vol rate/Area] mL/min/{1.73_m2} Normal >=60 [facility] Comment on above: Result Comment: [facility] have implemented the eGFR calculation [...] 1 Age = years Performed By: #### C BC #### [place] [address] CBC w/ Diffon 04-27-2024 Erythrocyte distribution width (RBC) [Ratio] 13.3 % Normal 11.6-14.8 [facility] Comment on above: Performed By: #### . Urinalysis Microscopic Auto #### [place] [address] Hematocrit (Bld) [Volume fraction] 43.4 % Normal 36.0-46.0 [facility] Comment on above: Performed By: #### . Urinalysis Microscopic Auto #### [place] [address] Hemoglobin (Bld) [Mass/Vol] 14.5 g/dL Normal 12.0-16.0 [facility] Comment on above: Performed By: #### . Urinalysis Microscopic Auto #### [place] [address] MCH (RBC) [Entitic mass] 29.5 pg Normal 27.0-35.0 [facility] Comment on above: Performed By: #### . Urinalysis Microscopic Auto #### [place] [address] MCHC 33.3 % Normal 31.0-37.0 [facility] Comment on above: Performed By: #### . Urinalysis Microscopic Auto #### [place] [id number] MCV (RBC) [Entitic vol] 88.5 fL Normal 80.0-100.0 [facility] Comment on above: Performed By: #### . Urinalysis Microscopic Auto #### [place] [id number] Platelet 335 x10*3/mcL Normal 150-450 [facility] Comment on above: Performed By: #### . Urinalysis Microscopic Auto #### [place] [id number] Platelet mean volume (Bld) [Entitic vol] 8.2 fL Normal 6.7-10.6 [facility] Comment on above: Performed By: #### . Urinalysis Microscopic Auto #### [place] [id number] RBC 4.91 x10*6/mcL Normal 3.80-5.20 [facility] Comment on above: Performed By: #### . Urinalysis Microscopic Auto #### [place] [id number] WBC 13.9 x10*3/mcL High 4.5-11.0 [facility] Comment on above: Performed By: #### . Urinalysis Microscopic Auto #### [place] [address] CMPon 04-27-2024 Albumin [Mass/Vol] 4.3 g/dL Normal 3.2-4.9 [facility] Comment on above: Performed By: #### . Automated Diff #### [place] [id number] Albumin/Globulin [Mass ratio] 1.0 {ratio} Low 1.1-2.2 [facility] Comment on above: Performed By: #### . Automated Diff #### [place] [id number] Alk Phos 94 IU/L High 32-91 [facility] Comment on above: Performed By: #### . Automated Diff #### [place] [id number] ALT [Catalytic activity/Vol] 64 U/L High 14-54 [facility] Comment on above: Performed By: #### . Automated Diff #### [place] [id number] Anion gap [Moles/Vol] 13 mmol/L High 4-12 [facility] Comment on above: Performed By: #### . Automated Diff #### [address] [address] AST [Catalytic activity/Vol] 66 U/L High 15-41 [facility] Comment on above: Performed By: #### . Automated Diff #### [address] [address] Bili Total 1.2 mg/dL Normal 0.3-1.2 [facility] Comment on above: Performed By: #### . Automated Diff #### [address] [address] Calcium [Mass/Vol] 9.4 mg/dL Normal 8.5-10.3 [facility] Comment on above: Performed By: #### . Automated Diff #### [address] [address] Chloride [Moles/Vol] 101 mmol/L Normal 98-110 [facility] Comment on above: Performed By: #### . Automated Diff #### [address] [address] CO2 [Moles/Vol] 22 mmol/L Normal 22-32 [facility] Comment on above: Performed By: #### . Automated Diff #### [address] [address] Creatinine [Mass/Vol] 0.77 mg/dL Normal 0.44-1.03 [facility] Comment on above: Performed By: #### . Automated Diff #### [address] [address] Glucose [Mass/Vol] 143 mg/dL High 70-99 [facility] Comment on above: Performed By: #### . Automated Diff #### [address] [address] Potassium [Moles/Vol] 3.8 mmol/L Normal 3.4-4.8 [facility] Comment on above: Performed By: #### . Automated Diff #### [address] [address] Protein [Mass/Vol] 8.5 g/dL High 6.5-8.1 [facility] Comment on above: Performed By: #### . Automated Diff #### [address] [address] Sodium [Moles/Vol] 136 mmol/L Normal 133-142 [facility] Comment on above: Performed By: #### . Automated Diff #### [address] [address] Urea nitrogen [Mass/Vol] 9 mg/dL Normal 8-26 [facility] Comment on above: Performed By: #### . Automated Diff #### [address] [address] Urea nitrogen/Creatinine [Mass ratio] 11.7 mg/mg Normal 10.0-20.0 [facility] Comment on above: Performed By: #### . Automated Diff #### [address] [address] Diff Autoon 04-27-2024 Baso Absolute 0.1 x10*3/mcL Normal 0.0-0.2 [facility] Comment on above: Performed By: #### . Urinalysis Microscopic Auto #### [address] [address] Basophils/100 WBC (Bld) 0.8 % Normal 0.0-1.5 [facility] Comment on above: Performed By: #### . Urinalysis Microscopic Auto #### [address] [address] Eos Absolute 0.1 x10*3/mcL Normal 0.0-0.4 [facility] Comment on above: Performed By: #### . Urinalysis Microscopic Auto #### [address] [address] Eosinophils/100 WBC (Bld) 0.8 % Normal 0.0-5.4 [facility] Comment on above: Performed By: #### . Urinalysis Microscopic Auto #### [address] [address] Lymph Absolute 4.2 x10*3/mcL Normal 1.0-4.8 [facility] Comment on above: Performed By: #### . Urinalysis Microscopic Auto #### [address] [address] Lymphocytes/100 WBC (Bld) 29.7 % Normal 27.2-40.8 [facility] Comment on above: Performed By: #### . Urinalysis Microscopic Auto #### [address] [address] [place] Absolute 0.6 x10*3/mcL Normal 0.1-1.1 [facility] Comment on above: Performed By: #### . Urinalysis Microscopic Auto #### [address] [address] Monocytes/100 WBC (Bld) 4.4 % Normal 3.7-11.9 [facility] Comment on above: Performed By: #### . Urinalysis Microscopic Auto #### [address] [address] Neutro Absolute 9.0 x10*3/mcL High 1.8-7.7 [facility] Comment on above: Performed By: #### . Urinalysis Microscopic Auto #### [address] [address] Neutro Auto 64.3 % Normal 47.2-70.8 [facility] Comment on above: Performed By: #### . Urinalysis Microscopic Auto #### [address] [address] ED Clinical Summaryon 2023 ED Clinical Summary [address] [address] ED Clinical Summary Person Information Name: Gael Ruby Josep/[facility] Age: 28 Years : 1995 Sex: Female PCP: Chantel GREWAL, Yossi Paz Marital Status: Single Phone: Race: White Ethnicity: Not or Language: Somali Visit Reason: Abdominal pain; abdominal pain Acuity: 3 Enc Type: Emergency Med Service: Emergency Medicine Arrival: 04/27/2024 19:20:54 Discharge: 04/27/2024 23:28:00 LOS: 000 04:08 Checkin: 04/27/2024 19:20:54 Checkout: 04/27/2024 23:28:00 Dispo Type: Home or Self Care Address: [address] [place] [id number] Provider Notes: Diagnosis: 1:Gastroparesis Problems No Problems Documented Smoking Status: Smoking Status Current every day smoker Functional Status: Sensory Deficits: History of Falls: Mobility Assistance Prior to Admission: ADLs: Current Level of Assistance for Self-Care/Mobility: Cognitive Status: Allergies penicillin (Nausea) (Itchy) Pyridium (Anxiety increase) Latex (Hives) traMADol (Nausea) Laboratory or Other Results This Visit (last charted value for your 04/27/2024 visit) Hematology 04/27/2024 9:43 PM WBC: 13.9 x10 RBC: 4.91 x10 Neutro Auto: 64.3 % -- Normal range between ( 47.2 and 70.8 ) Lymph Auto: 29.7 % -- Normal range between ( 27.2 and 40.8 ) [place] Auto: 4.4 % -- Normal range between ( 3.7 and 11.9 ) Eos Auto: 0.8 % -- Normal range between ( 0.0 and 5.4 ) Basophil Auto: 0.8 % -- Normal range between ( 0.0 and 1.5 ) Baso Absolute: 0.1 x10 MCV: 88.5 fL -- Normal range between ( 80.0 and 100.0 ) MCHC: 33.3 % -- Normal range between ( 31.0 and 37.0 ) Lymph Absolute: 4.2 x10 Hct: 43.4 % -- Normal range between ( 36.0 and 46.0 ) [place] Absolute: 0.6 x10 MCH: 29.5 pg -- Normal range between ( 27.0 and 35.0 ) Neutro Absolute: 9.0 x10 Hgb: 14.5 g/dL -- Normal range between ( 12.0 and 16.0 ) Mean Platelet Volume: 8.2 fL -- Normal range between ( 6.7 and 10.6 ) Platelet: 335 x10 Eos Absolute: 0.1 x10 RDW: 13.3 % -- Normal range between ( 11.6 and 14.8 ) Chemistry 04/27/2024 9:43 PM Creatinine Lvl: 0.77 mg/dL -- Normal range between ( 0.44 and 1.03 ) BUN: 9 mg/dL -- Normal range between ( 8 and 26 ) Glucose Lvl: 143 mg/dL -- Normal range between ( 70 and 99 ) Potassium Lvl: 3.8 mmol/L -- Normal range between ( 3.4 and 4.8 ) AST: 66 IU/L -- Normal range between ( 15 and 41 ) ALT: 64 IU/L -- Normal range between ( 14 and 54 ) Sodium Lvl: 136 mmol/L -- Normal range between ( 133 and 142 ) Lipase Lvl: 50 IU/L -- Normal range between ( 22 and 51 ) Calcium Lvl: 9.4 mg/dL -- Normal range between ( 8.5 and 10.3 ) Albumin Lvl: 4.3 g/dL -- Normal range between ( 3.2 and 4.9 ) Total Protein: 8.5 g/dL -- Normal range between ( 6.5 and 8.1 ) Magnesium Lvl: 2.1 mg/dL -- Normal range between ( 1.7 and 2.4 ) Bili Total: 1.2 mg/dL -- Normal range between ( 0.3 and 1.2 ) Alk Phos: 94 IU/L -- Normal range between ( 32 and 91 ) Chloride: 101 mmol/L -- Normal range between ( 98 and 110 ) CO2: 22 mmol/L -- Normal range between ( 22 and 32 ) Anion Gap: 13 -- Normal range between ( 4 and 12 ) Estimated GFR: >60 mL/min/1.73m? BUN Crea Ratio: 11.7 -- Normal range between ( 10.0 and 20.0 ) AG Ratio: 1.0 -- Normal range between ( 1.1 and 2.2 ) Measurements: Height: Weight: 115.8 kg Blood Pressure: /87 mmHg BMI: Procedures No Procedures Documented Immunizations No Immunizations Documented This Visit Final Med List: No Medications Documented Care Team Members: Attending Physician: Nehal Rapp DO Consulting Physician: Referring Physician: Provider Role Assigned Unassigned Nehal Rapp DO ED Provider 04/27/2024 21:02:58 Follow up: With: Address: When: YOUR PCP AND GI Comments: as previously arranged With: Address: When: Yossi Golden [address] [place] [address] Business (1) Discharge Orders: Discharge Patient 04/27/24 23:04:00 EDT, Discharge to Home, Self Return to Work/School 04/27/24 23:06:00 EDT, 04/29/24 8:00:00 EDT, 04/27/24 23:06:00 EDT Patient Education Information: Constipation (Adult); Gastroparesis [facility] Poison Help line: . [facility] Hotline: [place] Tobacco Quit Line: [place], [place]) [address]: [phone] [place], [place]) [address]: [phone] [facility] [address] [place], [place]: [phone] [facility] ED Note-Nursingon 04-27-2024 ED Note-Nursing pt. states that she has been seen multiple times in the ED. States They just keep telling me that I have gastritis and sending me home. Electronically signed by Supa Elmore 04/27/24 20:59 EDT Normal [facility] ED Note-Physicianon 04-27-20 ED Note-Physician Chief Complaint abominal pain. here multiple times for it. vomiting as well. History of Present Illness Patient is a 28-year lady coming emergency department abdominal discomfort she reports that she had her gallbladder out and has been having problems ever since she was recently here and told that it was her stomach was having some problems but she is not really sure what that is called she does have a history of diabetes and was on insulin and Trulicity Review of Systems As reviewed in the HPR. All other systems reviewed are negative or normal. Physical Exam Constitutional: the patient appears in no acute distress Head/face: exam is negative for obvious evidence of injury or deformity Eyes: Pupils: equal, round, and reactive to light. Sclera: no icterus HEENT: Pupils equal round react light and accommodation oral mucosa is moist he has no tonsillar edema or exudates present uvula midline without angioedema neck is supple trachea midline with no lymphadenopathy Cardiovascular: Rate: normal, Rhythm: regular, Pulses: no pulse deficits are appreciated, Heart sounds: normal, No murmur, gallop or rub appreciated. Respiratory: Exam negative for respiratory distress, Respirations: normal, Breath sounds: are normal, clear without rales, wheeze or rhonchi. Abdomen / GI Exam: Soft, not distended. negative for guarding, pulsatile mass, rebound tenderness, tenderness, Bowel sounds: normal, active throughout Back: Exam negative for acute changes, deformity or CVA tenderness. Musculoskeletal/extrem ity: Extremities: all appear grossly normal, with no appreciated deformity or pain with palpation, normal range of motion. Sensation is intact throughout. Skin: Exam negative for cyanosis, any evidence of obvious injury abrasion or rash. Vitals & Measurements T: 36.6 ?C (Oral) HR: 114 (Peripheral) RR: 16 BP: 123/87 SpO2: 95% HT: 172.7 cm WT: 115.8 kg (Dosing) Additional Vitals No qualifying data available. Procedure No qualifying data available. ASA Documentation Medical Decision Making Patient is a 28-year lady coming to emergency department report abdominal pain. She relates that she was just here but the records are not in our system. The patient reports that she is actually registered on the incorrect name thus we have to merge the charts. I was able to look up the past history on the electronic medical record she has a previous history of gastroparesis has undergone a cholecystectomy she was on insulin for diabetes and on Trulicity as well that could also cause gastroparesis she reports this abdominal discomfort there was a concern about some kind of liver pathology but that part is not very clear. Her laboratory evaluation today reveals a white count of 14 which is improved from previous she has a normal CBC normal hemoglobin she has appropriate electrolytes with an increased anion gap of 13 her blood sugar is 143 and has normal bicarb so I do not believe this is anion gap acidosis related to diabetes she has normal kidney function she does have liver dysfunction that is chronic when compared to previous her test is negative. She did get an x-ray today which shows a nonobstructive bowel gas pattern consistent with constipation. She did undergo a CT scan recently which revealed hepatosplenomegaly but no acute surgical emergency. At this time the patient has been treated symptomatically discussed with her appropriate follow-up she was given a dose of droperidol for her discomfort and IV fluid hydration and feels significantly better she is encouraged to follow-up with her primary care physician or her surgeon as an outpatient. Assessment/Plan 1. Gastroparesis Refresh vitals and sections below: Problem List/Past Medical History Ongoing Body mass index 30+ - obesity Gestational diabetes mellitus, class A>1< Group B streptococcus Maternal tobacco use Historical Procedure/Surgical History D&C - Dilatation and curettage Removal of remaining ovary Anastomosis of gall bladder Laparoscopic excision of pelvic endometriosis Surgical removal of wisdom tooth Caesarean section Local anaesthetic infiltration of tear duct delivery only; (12/20/2017) Section (12/20/2017) Medications Inpatient No active inpatient medications Home No active home medications Allergies penicillin (Itchy, Nausea) traMADol (Nausea) Latex (Hives) Pyridium (Anxiety increase) Social History Tobacco Current every day smoker, Cigarettes, 1 per day. Packs Family History Diabetes mellitus: Grandmother (M). Heart attack: Grandmother (M). Health Status Family Member(s) Diagnostic Results Electronically signed by Nehal Rapp DO 05/10/24 02:26 EDT Normal [facility] Lipaseon 04-27-2024 Lipase Lvl 50 IU/L Normal 22-51 [facility] Comment on above: Performed By: #### . Automated Diff #### [address] [address] Magnesiumon 04-27-2024 Magnesium [Mass/Vol] 2.1 mg/dL Normal 1.7-2.4 [facility] Comment on above: Performed By: #### . Automated Diff #### [address] [address] .UA Microscp Aon 04-26-2024 UA Mucus Present Normal Absent [facility] Comment on above: Performed By: #### U CI #### [place] [id number] UA RBC Quant 0 /HPF Normal 0-5 [facility] Comment on above: Performed By: #### U CI #### [address] [address] UA Squepi Cells Quant 5 /HPF Normal 0-29 [facility] Comment on above: Performed By: #### U CI #### [address] [address] UA WBC Quant 2 /HPF Normal 0-5 [facility] Comment on above: Performed By: #### U CI #### [address] [address] .eGFRon 04-26-2024 GFR/1.73 sq M.predicted MDRD (S/P/Bld) [Vol rate/Area] mL/min/{1.73_m2} Normal >=60 [facility] Comment on above: Result Comment: [facility] have implemented the eGFR calculation [...] = years Performed By: #### E GFR #### [address] [address] CBC w/ Diffon 04-26-2024 Erythrocyte distribution width (RBC) [Ratio] 13.7 % Normal 11.6-14.8 [facility] Comment on above: Performed By: #### L IP #### [address] [address] Hematocrit (Bld) [Volume fraction] 44.8 % Normal 36.0-46.0 [facility] Comment on above: Performed By: #### L IP #### [address] [address] Hemoglobin (Bld) [Mass/Vol] 15.0 g/dL Normal 12.0-16.0 [facility] Comment on above: Performed By: #### L IP #### [address] [address] MCH (RBC) [Entitic mass] 29.8 pg Normal 27.0-35.0 [facility] Comment on above: Performed By: #### L IP #### [address] [address] MCHC 33.4 % Normal 31.0-37.0 [facility] Comment on above: Performed By: #### L IP #### [address] [address] MCV (RBC) [Entitic vol] 89.2 fL Normal 80.0-100.0 [facility] Comment on above: Performed By: #### L IP #### [address] [address] Platelet 313 x10*3/mcL Normal 150-450 [facility] Comment on above: Performed By: #### L IP #### [address] [address] Platelet mean volume (Bld) [Entitic vol] 8.4 fL Normal 6.7-10.6 [facility] Comment on above: Performed By: #### L IP #### [address] [address] RBC 5.02 x10*6/mcL Normal 3.80-5.20 [facility] Comment on above: Performed By: #### L IP #### [address] [address] WBC 15.1 x10*3/mcL High 4.5-11.0 [facility] Comment on above: Performed By: #### L IP #### [address] [address] CMPon 04-26-2024 Albumin [Mass/Vol] 4.3 g/dL Normal 3.2-4.9 [facility] Comment on above: Performed By: #### C [id number] #### [address] [address] Albumin/Globulin [Mass ratio] 1.0 {ratio} Low 1.1-2.2 [facility] Comment on above: Performed By: #### C [id number] #### [address] [address] Alk Phos 90 IU/L Normal 32-91 [facility] Comment on above: Performed By: #### C [id number] #### [address] [address] ALT [Catalytic activity/Vol] 67 U/L High 14-54 [facility] Comment on above: Performed By: #### C [id number] #### [address] [address] Anion gap [Moles/Vol] 12 mmol/L Normal 4-12 [facility] Comment on above: Performed By: #### C [id number] #### [address] [address] AST [Catalytic activity/Vol] 55 U/L High 15-41 [facility] Comment on above: Performed By: #### C [id number] #### [address] [address] Bili Total 1.0 mg/dL Normal 0.3-1.2 [facility] Comment on above: Performed By: #### C [id number] #### [address] [address] Calcium [Mass/Vol] 9.5 mg/dL Normal 8.5-10.3 [facility] Comment on above: Performed By: #### C [id number] #### [address] [address] Chloride [Moles/Vol] 103 mmol/L Normal 98-110 [facility] Comment on above: Performed By: #### C [id number] #### [address] [address] CO2 [Moles/Vol] 22 mmol/L Normal 22-32 [facility] Comment on above: Performed By: #### C [id number] #### [address] [address] Creatinine [Mass/Vol] 0.75 mg/dL Normal 0.44-1.03 [facility] Comment on above: Performed By: #### C [id number] #### [address] [address] Glucose [Mass/Vol] 193 mg/dL High 70-99 [facility] Comment on above: Performed By: #### C [id number] #### [address] [address] Potassium [Moles/Vol] 3.8 mmol/L Normal 3.4-4.8 [facility] Comment on above: Performed By: #### C [id number] #### [address] [address] Protein [Mass/Vol] 8.5 g/dL High 6.5-8.1 [facility] Comment on above: Performed By: #### C [id number] #### [address] [address] Sodium [Moles/Vol] 137 mmol/L Normal 133-142 [facility] Comment on above: Performed By: #### C [id number] #### [address] [address] Urea nitrogen [Mass/Vol] 11 mg/dL Normal 8-26 [facility] Comment on above: Performed By: #### C [id number] #### [address] [address] Urea nitrogen/Creatinine [Mass ratio] 14.7 mg/mg Normal 10.0-20.0 [facility] Comment on above: Performed By: #### C [id number] #### [address] [address] [address] Abdomen Pelvis w/ IV [facility]2024 CT Abdomen Pelvis w/ IV Contrast EXAMINATION: CT Abdomen Pelvis w/ IV Contrast, 04/26/2024 10:19 AM EDT HISTORY: Abdominal pain, generalized, COMPARISON: 04/20/2024 TECHNIQUE: CT of the abdomen, and pelvis was performed following administration of IV contrast. Oral contrast was not administered prior to the examination. Dose reduction techniques were achieved by using automated exposure control and/or adjustment of mA and/or kV according to patient size and/or use of iterative reconstruction technique. FINDINGS: Lung Bases: No acute findings in the visualized lower chest. Liver: Similar enlargement. Normal contour. Diffuse steatosis. A small portion of the right dome is excluded from the [id number]. Biliary tree: Normal. Gallbladder: Cholecystectomy Spleen: Similar enlargement. Pancreas: Normal. Adrenal glands: Normal. Kidneys and ureters: No hydronephrosis. Similar cortical cysts on the left. Bladder: Grossly unremarkable for the degree of underdistention. Reproductive organs: Hysterectomy. No suspicious adnexal mass. Gastrointestinal tract: Nondilated. The appendix is normal. Peritoneum/retroperito neum: No free fluid or gas. Vasculature: Patent. No abdominal aortic aneurysm. Lymph nodes: Normal. Abdominal wall: Procedure change. No acute findings. Musculoskeletal: Degenerative change of the spine. IMPRESSION: 1. No acute findings within the abdomen and pelvis. 2. Similar hepatosplenomegaly. Diffuse hepatic steatosis. Radiation Dose Estimate: CTDI(mGy):0.845165 / / / kVp:120.455088 / mAs:0.643562 / / / DLP(mGy-cm):3.804802Gy dy Part: Abdomen CTDI(mGy):37.196209 / / / kVp:140.053022 / mAs:178.472064 / / / DLP(mGy-cm):1963.30355 1Body Part: Abdomen Final Dictated by: Cristofer Pedersen MD Dictated DT/TM: 04.26.2024 10:43 am Signed by: Cristofer Pedersen MD Signed (Electronic Signature): 04.26.2024 10:48 am (If Report Is Signed, Electronically Signed in Other Vendor System) [facility] [facility] [place] 04-26-2024 Influenza A PCR Negative Normal Negative [facility] Comment on above: Performed By: #### C [id number] #### [place] [address] Influenza B PCR Negative Normal Negative [facility] Comment on above: Performed By: #### C [id number] #### [place] [address] LAB ONLY Result Called? No Normal [facility] Comment on above: Performed By: #### C [id number] #### [place] [id number] RSV PCR Negative Normal Negative [facility] Comment on above: Result Comment: Resu lts from the Xpert Flu/RSV XC Assay should be interpreted with other laboratory and clinical data available to the clinician. Negative results do not preclude influenza virus or RSV infection and should not be used as the sole basis for treatment or other patient management decisions. False negative results may occur if the virus is present at levels below the analytical limit of detection. Recent exposure to FluMist or other live, attenuated influenza vaccines may cause inaccurate positive results. Performed By: #### C [id number] #### [address] [address] SARS-CoV-2 RNA Detection Negative Normal Negative [facility] Comment on above: Result Comment: The 2019 novel coronavirus SARS-CoV-2 target nucleic acids are not detected. The Xpert Xpress SARS-CoV-2/Flu/RSV plus test is a rapid, multiplexed real-time RT-PCR test intended for the simultaneous qualitative detection and differentiation of SARS-CoV-2, influenza A, influenza B, and respiratory syncytial virus (RSV) viral RNA in either nasopharyngeal swab or nasal swab collected from individuals suspected of respiratory viral infection consistent with COVID-19 by their healthcare provider. Performed By: #### C [id number] #### [address] [address] Diff Autoon 04-26-2024 Baso Absolute 0.1 x10*3/mcL Normal 0.0-0.2 [facility] Comment on above: Performed By: #### C [id number] #### [address] [address] Basophils/100 WBC (Bld) 1.0 % Normal 0.0-1.5 [facility] Comment on above: Performed By: #### C [id number] #### [address] [address] Eos Absolute 0.2 x10*3/mcL Normal 0.0-0.4 [facility] Comment on above: Performed By: #### C [id number] #### [address] [address] Eosinophils/100 WBC (Bld) 1.3 % Normal 0.0-5.4 [facility] Comment on above: Performed By: #### C [id number] #### [address] [address] Lymph Absolute 3.5 x10*3/mcL Normal 1.0-4.8 [facility] Comment on above: Performed By: #### C [id number] #### [address] [address] Lymphocytes/100 WBC (Bld) 23.4 % Low 27.2-40.8 [facility] Comment on above: Performed By: #### C [id number] #### [address] [address] [place] Absolute 0.9 x10*3/mcL Normal 0.1-1.1 [facility] Comment on above: Performed By: #### C [id number] #### [address] [address] Monocytes/100 WBC (Bld) 5.8 % Normal 3.7-11.9 [facility] Comment on above: Performed By: #### C [id number] #### [address] [address] Neutro Absolute 10.3 x10*3/mcL High 1.8-7.7 [facility] Comment on above: Performed By: #### C [id number] #### [address] [address] Neutro Auto 68.5 % Normal 47.2-70.8 [facility] Comment on above: Performed By: #### C [id number] #### [address] [address] ED Clinical Summaryon 2023 ED Clinical Summary [place] [id number] ED Clinical Summary Person Information Name: Gael Ruby Michelle [facility]keon[facility] Age: 28 Years : 1995 Sex: Female PCP: Chantel GREWAL, Yossi Paz Marital Status: Phone: Race: White Ethnicity: Not or Language: Somali Visit Reason: Nausea/vomiting; abdominal pain Acuity: 3 Enc Type: Emergency Med Service: Emergency Medicine Arrival: 04/26/2024 08:40:39 Discharge: 04/26/2024 11:25:00 LOS: 000 02:45 Checkin: 04/26/2024 08:40:39 Checkout: 04/26/2024 11:25:00 Dispo Type: Home or Self Care Address: [address] [place] [phone] Provider Notes: History of Present Illness Patient presents to ED c/o headache, dizziness, abdominal pain, nausea and vomiting starting around 1 week ago.? She has been seen in ED x 2 w/stable labs and CT w/no acute findings.? Patient denies fever, sore throat, cough, chest pain, shortness of breath, diarrhea, rectal bleeding, dysuria and hematuria.? She does admit to using hemp occasionally for her chronic back pain.? Symptoms are aggravated/alleviated by nothing.? Patient reports a history of GI issues including GERD.? She has taken scopoline w/o relief. Review of Systems General: [Negative for fever, chills, weakness, malaise] Head/Face: [Negative for injury, pain] Eyes: [Negative for injury, redness, pain, discharge] Neck: [Negative for injury, pain, swelling, stiffness] Cardiovascular: [Negative for chest pain, palpitations, edema] Respiratory: [Negative for shortness of breath, cough, wheezing, pleuritic chest pain] Abdomen/GI: [Positive for generalized pain, nausea, vomiting. Negative for distention, diarrhea, hematemesis, melena, hematochezia] : [Negative for frequency, dysuria, hematuria, hesitancy] Skin: [Negative for injury, rash, discoloration] Neuro: [Positive for headache, dizziness.? Negative for LOC, syncope, altered mental status, weakness, numbness] ? All other systems reviewed are negative and normal Physical Exam General: [Alert, awake, afebrile, well hydrated, no apparent distress] Eyes: [PERRL, extraocular movements intact, clear conjunctiva] Head/Face: [Normocephalic, atraumatic] Neck: [Non-tender, supple, no nuchal rigidity, full range of motion] Cardiovascular: [Regular rate and rhythm, no appreciated murmurs, normal S1 and S2, strong radial pulses w/intact distal perfusion] Respiratory: [Lungs clear to auscultation w/out wheezes, rhonchi, or rales, normal excursion, no accessory muscle use, no stridor] Abdomen/GI: [Generalized tenderness to palpation.? Soft all quadrants, non-distended, no palpable masses, no rebound, no guarding.? Bowel sounds active in all quadrants] : [No costovertebral angle tenderness] Skin: [[place], warm, dry, no injury, no rashes] Neuro: [Alert and oriented x 3, GCS 15, Normal mentation and speech. Moves all extremities w/out motor or sensory deficit, gait is steady] Psych: [Normal mood and affect, thought process is clear and linear] Reexamination/Reevalua tion Patient is resting comfortably in room, no distress. Diagnosis: 1:Generalized abdominal pain; 2:Nausea and vomiting Problems No Problems Documented Smoking Status: Smoking [...] This Visit (last charted value for your 04/26/2024 visit) Hematology 04/26/2024 9:14 AM WBC: 15.1 x10 RBC: 5.02 x10 Neutro Auto: 68.5 % -- Normal range between ( 47.2 and 70.8 ) Lymph Auto: 23.4 % -- Normal range between ( 27.2 and 40.8 ) [place] Auto: 5.8 % -- Normal range between ( 3.7 and 11.9 ) Eos Auto: 1.3 % -- Normal range between ( 0.0 and 5.4 ) Basophil Auto: 1.0 % -- Normal range between ( 0.0 and 1.5 ) Baso Absolute: 0.1 x10 MCV: 89.2 fL -- Normal range between ( 80.0 and 100.0 ) MCHC: 33.4 % -- Normal range between ( 31.0 and 37.0 ) Lymph Absolute: 3.5 x10 Hct: 44.8 % -- Normal range between ( 36.0 and 46.0 ) [place] Absolute: 0.9 x10 MCH: 29.8 pg -- Normal range between ( 27.0 and 35.0 ) Neutro Absolute: 10.3 x10 Hgb: 15.0 g/dL -- Normal range between ( 12.0 and 16.0 ) Mean Platelet Volume: 8.4 fL -- Normal range between ( 6.7 and 10.6 ) Platelet: 313 x10 Eos Absolute: 0.2 x10 RDW: 13.7 % -- Normal range between ( 11.6 and 14.8 ) Urinalysis 04/26/2024 9:30 AM UA Color: Light-Yellow UA Urobilinogen: Normal mg/dL UA Bili: Negative UA Ketones: Negative mg/dL UA Leukocyte Esterase: Negative UA Nitrite: Negative UA Glucose: Normal mg/dL UA Protein: 10 mg/ (more content not included)... Normal [facility] ED Note-Physicianon 04-26-20 ED Note-Physician Chief Complaint abdominal pain, nausea, vomiting for past few days History of Present Illness Patient presents to ED c/o headache, dizziness, abdominal pain, nausea and vomiting starting around 1 week ago. She has been seen in ED x 2 w/stable labs and CT w/no acute findings. Patient denies fever, sore throat, cough, chest pain, shortness of breath, diarrhea, rectal bleeding, dysuria and hematuria. She does admit to using hemp occasionally for her chronic back pain. Symptoms are aggravated/alleviated by nothing. Patient reports a history of GI issues including GERD. She has taken scopoline w/o relief. Review of Systems General: [Negative for fever, chills, weakness, malaise] Head/Face: [Negative for injury, pain] Eyes: [Negative for injury, redness, pain, discharge] Neck: [Negative for injury, pain, swelling, stiffness] Cardiovascular: [Negative for chest pain, palpitations, edema] Respiratory: [Negative for shortness of breath, cough, wheezing, pleuritic chest pain] Abdomen/GI: [Positive for generalized pain, nausea, vomiting. Negative for distention, diarrhea, hematemesis, melena, hematochezia] : [Negative for frequency, dysuria, hematuria, hesitancy] Skin: [Negative for injury, rash, discoloration] Neuro: [Positive for headache, dizziness. Negative for LOC, syncope, altered mental status, weakness, numbness] All other systems reviewed are negative and normal Physical Exam General: [Alert, awake, afebrile, well hydrated, no apparent distress] Eyes: [PERRL, extraocular movements intact, clear conjunctiva] Head/Face: [Normocephalic, atraumatic] Neck: [Non-tender, supple, no nuchal rigidity, full range of motion] Cardiovascular: [Regular rate and rhythm, no appreciated murmurs, normal S1 and S2, strong radial pulses w/intact distal perfusion] Respiratory: [Lungs clear to auscultation w/out wheezes, rhonchi, or rales, normal excursion, no accessory muscle use, no stridor] Abdomen/GI: [Generalized tenderness to palpation. Soft all quadrants, non-distended, no palpable masses, no rebound, no guarding. Bowel sounds active in all quadrants] : [No costovertebral angle tenderness] Skin: [[place], warm, dry, no injury, no rashes] Neuro: [Alert and oriented x 3, GCS 15, Normal mentation and speech. Moves all extremities w/out motor or sensory deficit, gait is steady] Psych: [Normal mood and affect, thought process is clear and linear] Vitals & Measurements T: 36.3 ?C (Oral) HR: 110 (Peripheral) RR: 18 BP: 149/101 SpO2: 95% HT: 175 cm WT: 114.5 kg (Dosing) Additional Vitals No qualifying data available. Medical Decision Making MEDICAL DECISION MAKING Number and Complexity of Problems Differential Diagnosis: abdominal pain, vomiting, dehydration, UTI, appendicitis, kidney stone, GERD MDM Data External documents reviewed: previous ED notes, labs and CT My EKG interpretation: _ My CT interpretation: _ My X-ray interpretation: _ My Ultrasound interpretation: _ Decision rules/scores evaluated: _ Discussed with: _ Decision rules/scores evaluated: _ ? HEART Score: Not Completed ? PERC Rule: _ ? NEXUS C-spine Criteria: _ ? [place] Ankle Rule: _ ? [place] Knee Rule: _ ? Wells Criteria for DVT: _ ? Wells Criteria for PE: _ Discussed with: _ Treatment and Disposition ED Course: _Patient presents to ED c/o headache, dizziness, abdominal pain, nausea and vomiting starting around 1 week ago. She has been seen in ED x 2 w/stable labs and CT w/no acute findings. Patient denies fever, sore throat, cough, chest pain, shortness of breath, diarrhea, rectal bleeding, dysuria and hematuria. She does admit to using hemp occasionally for her chronic back pain. Symptoms are aggravated/alleviated by nothing. Patient reports a history of GI issues including GERD. She has taken scopoline w/o relief. Abdomen is diffusely tender on exam. Vitals are stable. WBC did increase CT is then repeated and remains w/no acute findings. Will d/c home and have her follow up w/PCP for recheck/further evaluation and possible GI referral. She is advised to return for any worsening symptoms, inability to tolerate fluids, fever or other concerns. The results of pertinent diagnostic studies and exam findings were discussed. The patient?s provisional diagnosis and plan of care were [...] discussed with the patient and family present. Shared decision making: _ Code status: _ Reexamination/Reevalua tion Patient is resting comfortably in room, no distress. Assessment/Plan 1. Generalized abdominal pain 2. Nausea and vomiting Orders: metoclopramide, 1 tabs, Oral, ACHS, PRN, (more content not included)... Normal [facility] Lipaseon 04-26-2024 Lipase Lvl 56 IU/L High 22-51 [facility] Comment on above: Performed By: #### L IP #### [facility] [address] [place] [address] UA w Culture if Indon 2023 Color (U) Light-Yellow Normal Yellow [facility] Comment on above: Performed By: #### C [id number] #### [facility] [address] [place] [address] Ketones Ql (U) Negative Normal Negative [facility] Comment on above: Performed By: #### C [id number] #### [facility] [address] [place] [address], [place] [address] UA Blood Negative Normal Negative [facility] Comment on above: Performed By: #### C [id number] #### [address] [place] [address] UA Clarity Clear Normal Clear [facility] Comment on above: Performed By: #### C [id number] #### [address] [place] [address] UA Glucose Normal Normal Negative [facility] Comment on above: Performed By: #### C [id number] #### [address] [address] UA Leukocyte Esterase Negative Normal Negative [facility] Comment on above: Performed By: #### C [id number] #### [address] [address] UA Nitrite Negative Normal Negative [facility] Comment on above: Performed By: #### C [id number] #### [address] [address] UA pH 6.5 Normal 4.5 - 7.8 [facility] Comment on above: Performed By: #### C D:[id number] #### [address] [address] UA Protein 10 mg/dL Normal Negative [facility] Comment on above: Performed By: #### C [id number] #### [address] [address] UA Source Clean Catch Normal [facility] Comment on above: Performed By: #### C D:[id number] #### [address] [address] UA Spec Grav 1.023 Normal 1.003-1.035 [facility] Comment on above: Performed By: #### C D:[id number] #### [address] [address] UA Urobilinogen Normal Normal 0.2 - 1.0 [facility] Comment on above: Performed By: #### C [id number] #### [place] [address] Urobilinogen (U) [Mass/Vol] Negative Normal Negative [facility] Comment on above: Performed By: #### C [id number] #### [place] [address] .UA Microscp Aon 04-24-2024 UA Bacteria Present Abnormal Absent [facility] Comment on above: Performed By: #### . Urinalysis Microscopic Auto #### [place] [address] UA Mucus Present Normal Absent [facility] Comment on above: Performed By: #### . Urinalysis Microscopic Auto #### [place] [address] UA RBC Quant 0 /HPF Normal 0-5 [facility] Comment on above: Performed By: #### . Urinalysis Microscopic Auto #### [place] [address] UA Squepi Cells Quant 2 /HPF Normal 0-29 [facility] Comment on above: Performed By: #### . Urinalysis Microscopic Auto #### [place] [address] UA WBC Quant 1 /HPF Normal 0-5 [facility] Comment on above: Performed By: #### . Urinalysis Microscopic Auto #### [place] [address] .eGFRon 04-24-2024 GFR/1.73 sq M.predicted MDRD (S/P/Bld) [Vol rate/Area] mL/min/{1.73_m2} Normal >=60 [facility] Comment on above: Order Comment: Order added by Discern rule Result Comment: [facility] have implemented the eGFR calculation [...] 1 Age = years Performed By: #### L IP #### [place] [address] CBC w/ Diffon 04-24-2024 Erythrocyte distribution width (RBC) [Ratio] 13.4 % Normal 11.6-14.8 [facility] Comment on above: Performed By: #### . Urinalysis Microscopic Auto #### [place] [id number] Hematocrit (Bld) [Volume fraction] 45.1 % Normal 36.0-46.0 [facility] Comment on above: Performed By: #### . Urinalysis Microscopic Auto #### [address] [address] Hemoglobin (Bld) [Mass/Vol] 15.5 g/dL Normal 12.0-16.0 [facility] Comment on above: Performed By: #### . Urinalysis Microscopic Auto #### [address] [address] MCH (RBC) [Entitic mass] 30.9 pg Normal 27.0-35.0 [facility] Comment on above: Performed By: #### . Urinalysis Microscopic Auto #### [address] [address] MCHC 34.4 % Normal 31.0-37.0 [facility] Comment on above: Performed By: #### . Urinalysis Microscopic Auto #### [place] [id number] MCV (RBC) [Entitic vol] 89.9 fL Normal 80.0-100.0 [facility] Comment on above: Performed By: #### . Urinalysis Microscopic Auto #### [place] [id number] Platelet 351 x10*3/mcL Normal 150-450 [facility] Comment on above: Performed By: #### . Urinalysis Microscopic Auto #### [place] [address] Platelet mean volume (Bld) [Entitic vol] 8.7 fL Normal 6.7-10.6 [facility] Comment on above: Performed By: #### . Urinalysis Microscopic Auto #### [place] [address] RBC 5.02 x10*6/mcL Normal 3.80-5.20 [facility] Comment on above: Performed By: #### . Urinalysis Microscopic Auto #### [place] [address] WBC 12.5 x10*3/mcL High 4.5-11.0 [facility] Comment on above: Performed By: #### . Urinalysis Microscopic Auto #### [place] [address] CMPon 04-24-2024 Albumin [Mass/Vol] 4.3 g/dL Normal 3.2-4.9 [facility] Comment on above: Performed By: #### C [id number] #### [place] [address] Albumin/Globulin [Mass ratio] 1.1 {ratio} Normal 1.1-2.2 [facility] Comment on above: Performed By: #### C [id number] #### [place] [address] Alk Phos 99 IU/L High 32-91 [facility] Comment on above: Result Comment: This test result could be falsely elevated due to interference from the hemolyzed condition of the specimen. Performed By: #### C D:[id number] #### [address] [address] ALT [Catalytic activity/Vol] 90 U/L High 14-54 [facility] Comment on above: Result Comment: This test result could be falsely elevated due to interference from the hemolyzed condition of the specimen. Performed By: #### C D:[id number] #### [address] [address] Anion gap [Moles/Vol] 9 mmol/L Normal 4-12 [facility] Comment on above: Performed By: #### C D:[id number] #### [address] [address] AST [Catalytic activity/Vol] 148 U/L High 15-41 [facility] Comment on above: Result Comment: This test result could be falsely elevated due to interference from the hemolyzed condition of the specimen. Performed By: #### C D:[id number] #### [address] [address] Bili Total 1.4 mg/dL High 0.3-1.2 [facility] Comment on above: Result Comment: This test result could be falsely elevated due to interference from the hemolyzed condition of the specimen. Performed By: #### C D:[id number] #### [address] [address] Calcium [Mass/Vol] 9.4 mg/dL Normal 8.5-10.3 [facility] Comment on above: Performed By: #### C D:[id number] #### [address] [address] Chloride [Moles/Vol] 103 mmol/L Normal 98-110 [facility] Comment on above: Performed By: #### C D:[id number] #### [address] [address] CO2 [Moles/Vol] 20 mmol/L Low 22-32 [facility] Comment on above: Performed By: #### C D:[id number] #### [address] [address] Creatinine [Mass/Vol] 0.84 mg/dL Normal 0.44-1.03 [facility] Comment on above: Performed By: #### C D:[id number] #### [address] [address] Glucose [Mass/Vol] 212 mg/dL High 70-99 [facility] Comment on above: Performed By: #### C D:[id number] #### [address] [address] Potassium [Moles/Vol] 4.2 mmol/L Normal 3.4-4.8 [facility] Comment on above: Result Comment: This test result could be falsely elevated due to interference from the hemolyzed condition of the specimen. Performed By: #### C D:[id number] #### [address] [address] Protein [Mass/Vol] 8.2 g/dL High 6.5-8.1 [facility] Comment on above: Performed By: #### C D:[id number] #### [address] [address] Sodium [Moles/Vol] 132 mmol/L Low 133-142 [facility] Comment on above: Performed By: #### C D:[id number] #### [address] [address] Urea nitrogen [Mass/Vol] 8 mg/dL Normal 8-26 [facility] Comment on above: Performed By: #### C D:[id number] #### [address] [address] Urea nitrogen/Creatinine [Mass ratio] 9.5 mg/mg Low 10.0-20.0 [facility] Comment on above: Performed By: #### C D:[id number] #### [address] [address] Diff Autoon 04-24-2024 Baso Absolute 0.1 x10*3/mcL Normal 0.0-0.2 [facility] Comment on above: Performed By: #### U CI #### [address] [address] Basophils/100 WBC (Bld) 0.8 % Normal 0.0-1.5 [facility] Comment on above: Performed By: #### U CI #### [address] [address] Eos Absolute 0.2 x10*3/mcL Normal 0.0-0.4 [facility] Comment on above: Performed By: #### U CI #### [address] [address] Eosinophils/100 WBC (Bld) 1.5 % Normal 0.0-5.4 [facility] Comment on above: Performed By: #### U CI #### [address] [address] Lymph Absolute 3.9 x10*3/mcL Normal 1.0-4.8 [facility] Comment on above: Performed By: #### U CI #### [address] [address] Lymphocytes/100 WBC (Bld) 31.4 % Normal 27.2-40.8 [facility] Comment on above: Performed By: #### U CI #### [address] [address] [place] Absolute 0.6 x10*3/mcL Normal 0.1-1.1 [facility] Comment on above: Performed By: #### U CI #### [address] [address] Monocytes/100 WBC (Bld) 4.5 % Normal 3.7-11.9 [facility] Comment on above: Performed By: #### U CI #### [address] [address] Neutro Absolute 7.7 x10*3/mcL Normal 1.8-7.7 [facility] Comment on above: Performed By: #### U CI #### [address] [address] Neutro Auto 61.8 % Normal 47.2-70.8 [facility] Comment on above: Performed By: #### U CI #### [address] [address] ED Clinical Summaryon 2023 ED Clinical Summary [address] [address] ED Clinical Summary Person Information Name: Gael Ruby Josep/[facility] Age: 28 Years : 1995 Sex: Female PCP: Chantel GREWAL, Yossi Paz Marital Status: Phone: Race: White Ethnicity: Not or Language: Somali Visit Reason: N/V/D; Dizziness; dizziness Acuity: 3 Enc Type: Emergency Med Service: Emergency Medicine Arrival: 04/24/2024 18:24:10 Discharge: 04/24/2024 21:50:00 LOS: 000 03:26 Checkin: 04/24/2024 18:24:10 Checkout: 04/24/2024 21:50:00 Dispo Type: Home or Self Care Address: [address] [place] [phone] Provider Notes: Diagnosis: 1:Gastroenteritis Problems No Problems Documented Smoking Status: Smoking [...] This Visit (last charted value for your 04/24/2024 visit) Hematology 04/24/2024 7:23 PM WBC: 12.5 x10 RBC: 5.02 x10 Neutro Auto: 61.8 % -- Normal range between ( 47.2 and 70.8 ) Lymph Auto: 31.4 % -- Normal range between ( 27.2 and 40.8 ) [place] Auto: 4.5 % -- Normal range between ( 3.7 and 11.9 ) Eos Auto: 1.5 % -- Normal range between ( 0.0 and 5.4 ) Basophil Auto: 0.8 % -- Normal range between ( 0.0 and 1.5 ) Baso Absolute: 0.1 x10 MCV: 89.9 fL -- Normal range between ( 80.0 and 100.0 ) MCHC: 34.4 % -- Normal range between ( 31.0 and 37.0 ) Lymph Absolute: 3.9 x10 Hct: 45.1 % -- Normal range between ( 36.0 and 46.0 ) [place] Absolute: 0.6 x10 MCH: 30.9 pg -- Normal range between ( 27.0 and 35.0 ) Neutro Absolute: 7.7 x10 Hgb: 15.5 g/dL -- Normal range between ( 12.0 and 16.0 ) Mean Platelet Volume: 8.7 fL -- Normal range between ( 6.7 and 10.6 ) Platelet: 351 x10 Eos Absolute: 0.2 x10 RDW: 13.4 % -- Normal range between ( 11.6 and 14.8 ) Urinalysis 04/24/2024 7:26 PM UA Color: Light-Yellow UA Urobilinogen: Normal mg/dL UA Bili: Negative UA Ketones: Negative mg/dL UA Leukocyte Esterase: Negative UA Nitrite: Negative UA Glucose: Normal mg/dL UA Bacteria: Present /HPF UA Protein: 10 mg/dL UA Blood: Negative UA Spec Grav: 1.014 -- Normal range between ( 1.003 and 1.035 ) UA pH: 6.0 UA Clarity: Clear UA Source: Clean Catch UA Mucus: Present /LPF UA WBC Quant: 1 /HPF -- Normal range between ( 0 and 5 ) UA RBC Quant: 0 /HPF -- Normal range between ( 0 and 5 ) UA Squepi Cells Quant: 2 /HPF -- Normal range between ( 0 and 29 ) Chemistry 04/24/2024 7:23 PM Estimated GFR: >60 mL/min/1.73m? 04/24/2024 7:01 PM Creatinine Lvl: 0.84 mg/dL -- Normal range between ( 0.44 and 1.03 ) BUN: 8 mg/dL -- Normal range between ( 8 and 26 ) Glucose Lvl: 212 mg/dL -- Normal range between ( 70 and 99 ) Potassium Lvl: 4.2 mmol/L -- Normal range between ( 3.4 and 4.8 ) AST: 148 IU/L -- Normal range between ( 15 and 41 ) ALT: 90 IU/L -- Normal range between ( 14 and 54 ) Sodium Lvl: 132 mmol/L -- Normal range between ( 133 and 142 ) Lipase Lvl: 58 IU/L -- Normal range between ( 22 and 51 ) Calcium Lvl: 9.4 mg/dL -- Normal range between ( 8.5 and 10.3 ) Albumin Lvl: 4.3 g/dL -- Normal range between ( 3.2 and 4.9 ) Total Protein: 8.2 g/dL -- Normal range between ( 6.5 and 8.1 ) Magnesium Lvl: 2.1 mg/dL -- Normal range between ( 1.7 and 2.4 ) Bili Total: 1.4 mg/dL -- Normal range between ( 0.3 and 1.2 ) Alk Phos: 99 IU/L -- Normal range between ( 32 and 91 ) Chloride: 103 mmol/L -- Normal range between ( 98 and 110 ) CO2: 20 mmol/L -- Normal range between ( 22 and 32 ) Anion Gap: 9 -- Normal range between ( 4 and 12 ) BUN Crea Ratio: 9.5 -- Normal range between ( 10.0 and 20.0 ) AG Ratio: 1.1 -- Normal range between ( 1.1 and 2.2 ) Measurements: Height: Weight: 113.9 kg Blood Pressure: /105 mmHg BMI: Procedures No Procedures Documented Immunizations No Immunizations Documented This Visit Final Med List: New Medications [facility] [id number], [address] [place], [place] [id number], [phone] promethazine (promethazine 12.5 mg oral tablet) 1 Tabs Oral (given by mouth) every 4 hours as needed as needed for nausea/vomiting for 3 Days. Refills: 0. Last Dose: ___ Medications that have not changed Other Medications albuterol (albuterol 90 mcg/inh inhalation aerosol) 2 Puffs Inhale (breathe in) every 6 hours as needed as needed for wheezing. Last Dose: ___ clindamycin (clindamycin 300 mg oral capsule) 1 Capsules Oral (given by mouth) every 6 hours. Last Dose: ___ dulaglutide (Tr (more content not included)... Normal [facility] ED Note-Physicianon 04-24-20 ED Note-Physician Chief Complaint n/v/d, dizziness, abdominal pain for past few days History of Present Illness 28-year-old female presenting for concerns of nausea, vomiting, diarrhea abdominal pain and dizziness of the past several days. She was evaluated in her ER several days prior without any acute abnormalities. Symptoms have continued. Dizziness is common for her with her diabetes, sugars run anywhere from 1 80-1 90 and she is currently at 230 on her Dexcom. No Fever or chills. Review of Systems As reviewed in the HPI. All other systems reviewed are negative or normal. Physical Exam CONSTITUTIONAL: [well appearing in no acute distress] SKIN: [Warm, dry, and intact without rash] EYES: [extraocular movements are grossly intact, clear conjunctiva] HENT: [Normocephalic, atraumatic, moist mucus membranes] NECK: [no obvious swelling, normal range of motion] PULMONARY: [normal chest rise and fall, no respiratory distress or stridor CARDIOVASCULAR: [regular rate, distal extremities are warm and well perfused] GASTROINSTESTINAL: [nondistended, non-tender with no rebound or guarding, large pannus with hypoactive bowel sounds] GENITOURINARY: [deferred] NEUROLOGIC: [normal speech, moves all extremities] MUSCULOSKELETAL: [no gross deformities, atraumatic] PSYCHIATRIC: [normal mood and affect] Vitals & Measurements HR: 109 (Peripheral) RR: 17 BP: 146/106 SpO2: 96% HT: 172.7 cm WT: 113.9 kg (Dosing) Additional Vitals No qualifying data available. Procedure No qualifying data available. ASA Documentation Medical Decision Making This report has been created using voice recognition software. It may contain minor errors which are inherent in voice recognition technology. 28-year-old female presenting for concerns of nausea, vomiting, diarrhea abdominal pain and dizziness of the past several days. She was evaluated in her ER several days prior without any acute abnormalities. Symptoms have continued. Dizziness is common for her with her diabetes, sugars run anywhere from 1 80-1 90 and she is currently at 230 on her Dexcom. No Fever or chills. Abdomen is nondistended, non-tender with no rebound or guarding, large pannus with hypoactive bowel sounds. Lab work is reassuring. Patient receives IV fluids and antiemetics. No repeat imaging is completed. Vital stable. Patient unable to provide stool sample. Instructed to follow up with PCP. Strict return precautions discussed. Discharged home in stable condition and neurovascularly intact. Differential Diagnosis (including but not limited to): Gastroenteritis, bowel obstruction, appendicitis, nausea and vomiting Data and analysis: ? Patients chart reviewed historically as needed ED Course / Patient Re-evaluation: ? Time: Resting comfortably, vitals stable, neurovascularly intact, nontoxic ? Social determinants of health that impacts treatment or disposition Disposition ? Shared decision making The results of pertinent diagnostic studies and exam findings were discussed. The patient?s provisional diagnosis and plan of care were [...] discussed with the patient and family present. Reexamination/Reevalua tion Resting comfortably, vitals stable, neurovascularly intact, nontoxic Assessment/Plan 1. Gastroenteritis Refresh vitals and sections below: Problem List/Past Medical History Ongoing ADD Anxiety Asthma Back pain Bladder disorder Depression HSV PCOS- polycystic ovary syndrome Historical Gestational diabetes Miscarriage MRSA Ovarian cyst Procedure/Surgical History Dilation and curettage [place] Tooth extraction (2009) Oopherectomy (06/2010) Tonsillectomy and adenoidectomy (02/2011) Eye Surgery (12/15/2011) Cystoscopy (07/22/2012) Diagnostic Laparoscopy (07/22/2012) (03/22/2016) Laparoscopic cholecystectomy (03/29/2017) (05/22/2020) Dilation and Curettage (03/20/2021) Vaginal Hysterectomy (11/12/2022) Medications Inpatient NS Bolus, 1000 mL, IV Bolus, Once Zofran, 4 mg= 2 mL, IV Push, Once Home albuterol 90 mcg/inh inhalation aerosol, [...] 10 mg= 1 tabs, Oral, QID, PRN (more content not included)... Normal [facility] Lipaseon 04-24-2024 Lipase Lvl 58 IU/L High 22-51 [facility] Comment on above: Performed By: #### L IP #### [place] [address] Magnesiumon 04-24-2024 Magnesium [Mass/Vol] 2.1 mg/dL Normal 1.7-2.4 [facility] Comment on above: Result Comment: This test result could be falsely elevated due to interference from the hemolyzed condition of the specimen. Performed By: #### . Urinalysis Microscopic Auto #### [place] [id number] UA w Culture if Indon 2023 Color (U) Light-Yellow Normal Yellow [facility] Comment on above: Performed By: #### U CI #### [place] [id number] Ketones Ql (U) Negative Normal Negative [facility] Comment on above: Performed By: #### U CI #### [facility] [address] [place] [address], [place] [address] UA Blood Negative Normal Negative [facility] Comment on above: Performed By: #### U CI #### [facility] [address] [place] [address], [place] [address] UA Clarity Clear Normal Clear [facility] Comment on above: Performed By: #### U CI #### [facility] [address] [place] [address], [place] [address] UA Glucose Normal Normal Negative [facility] Comment on above: Performed By: #### U CI #### [address] [place] [address] UA Leukocyte Esterase Negative Normal Negative [facility] Comment on above: Performed By: #### U CI #### [address] [address] UA Nitrite Negative Normal Negative [facility] Comment on above: Performed By: #### U CI #### [address] [place] [address] UA pH 6.0 Normal 4.5 - 7.8 [facility] Comment on above: Performed By: #### U CI #### [address] [place] [address] UA Protein 10 mg/dL Normal Negative [facility] Comment on above: Performed By: #### U CI #### [address] [place] [address] UA Source Clean Catch Normal [facility] Comment on above: Performed By: #### U CI #### [facility] [address] [place] [address], [place] [address] UA Spec Grav 1.014 Normal 1.003-1.035 [facility] Comment on above: Performed By: #### U CI #### [address] [place] [address] UA Urobilinogen Normal Normal 0.2 - 1.0 [facility] Comment on above: Performed By: #### U CI #### [facility] [address] [place] [address] Urobilinogen (U) [Mass/Vol] Negative Normal Negative [facility] Comment on above: Performed By: #### U CI #### [facility] [address] [place] [address] Microalb.,Random Uron 2023 Creatinine [Mass/Vol] 98.5 mg/dL Normal 28.0-217.0 [facility] Comment on above: Performed By: #### B MP ####[address] [place], [place] [id number] Lab Director: Murtaza Arceo MD#### MOO, URNMAB ####[place] [address] [place], [place] [address] Lab Director: Rishabh Mendieta MD Microalb/Creat Ratio Can not be calculated Normal 0.0- 25.0 [facility] Comment on above: Performed By: #### B MP ####[address] [place], [place] [id number] Lab Director: Murtaza Arceo MD#### MOO, URNMAB ####[facility] [place], [place] [id number] Lab Director: Rishabh Mendieta MD Microalbumin conc. <12 Normal 0-20 [facility] Comment on above: Performed By: #### B MP ####[address] [place] [address] Lab Director: Murtaza Arceo MD#### GLYHGMarlee, URNMAB ####[facility] [address] [place] [address] Lab Director: Rishabh Mendieta MD Basic Metabolic Panelon 03-25 Anion gap [Moles/Vol] 11 mmol/L 9 - 17 mmol/L [facility] Calcium [Mass/Vol] 9.7 mg/dL 8.6 - 10. 4 mg/dL [facility] Chloride [Moles/Vol] 100 mmol/L 98 - 10 7 mmol/L [facility] CO2 [Moles/Vol] 27 mmol/L 20 - 31 mmol/L [facility] Creatinine [Mass/Vol] 0.7 mg/dL 0.5 - 0.9 mg/dL [facility] Est, Amarilis Montejot Rate - [facility] Comment on above: These results are not [...] that affects renal tubular secretion. Glucose [Mass/Vol] 197 mg/dL High 70 - 99 mg/dL [facility] Interpretation and review of laboratory results Abnormal [facility] Potassium [Moles/Vol] 4.0 mmol/L 3.7 - 5.3 mmol/L [facility] Sodium [Moles/Vol] 138 mmol/L 135 - 144 mmol/L [facility] Urea nitrogen [Mass/Vol] 10 mg/dL 6 - 20 mg/dL [facility] Urea nitrogen/Creatinine [Mass ratio] 14 mg/mg 9 - 20 [facility] Basic Metabolic Profon 04-21 Anion gap [Moles/Vol] 11 mmol/L Normal -17 [facility] Comment on above: Performed By: #### B MP ####[facility] [place] [address] Lab Director: Murtaza Arceo MD#### GLYHGB, URNMAB ####[place] [place] [address] Lab Director: Rishabh Mendieta MD BUN/CRE Ratio 14 Normal - [facility] Comment on above: Performed By: #### B MP ####[address] , [place] [id number] Lab Director: Murtaza Arceo MD#### MOO, URNMAB ####[place] [address] [place] [address] Lab Director: Rishabh Mendieta MD Calcium [Mass/Vol] 9.7 mg/dL Normal 8.6-10.4 [facility] Comment on above: Performed By: #### B MP ####[address] [place], [place] [address] Lab Director: Murtaza Arceo MD#### MOO, URNMAB ####[address] [address] Lab Director: Rishabh Mendieta MD Chloride [Moles/Vol] 100 mmol/L Normal 98-107 [facility] Comment on above: Performed By: #### B MP ####[address] [place], [place] [address] Lab Director: Murtaza Arceo MD#### MOO, URNMAB ####[address] [address] Lab Director: Rishabh Mendieta MD CO2 [Moles/Vol] 27 mmol/L Normal 20-31 [facility] Comment on above: Performed By: #### B MP ####[address] [place], [place] [phone] Director: Murtaza Arceo MD#### GLYNETTE, URNMAB ####[place] [address] [place] [address] Lab Director: Rishabh Mendieta MD Creatinine [Mass/Vol] 0.7 mg/dL Normal 0.5-0.9 [facility] Comment on above: Performed By: #### B MP ####[address], [place] [address] Lab Director: Murtaza Arceo MD#### GLYHGMarlee, URNMAB ####[place] [address] [place], [place] [address] Lab Director: Rishabh Mendieta MD GFR/1.73 sq M.predicted among non-blacks MDRD (S/P/Bld) [Vol rate/Area] mL/min/{1.73_m2} Normal >60 [facility] Comment on above: Result Comment: Thes [...] tubular secretion. Performed By: #### B MP ####[address] [place] [address] Lab Director: Murtaza Arceo MD#### GLYHGMarlee, URNMAB ####[place] [address] [place], [place] [address] Lab Director: Rishabh Mendieta MD Glucose [Mass/Vol] 197 mg/dL High 70-99 [facility] Comment on above: Performed By: #### B MP ####[address] [place], [place] [address] Lab Director: Murtaza Arceo MD#### GLYHGB, URNMAB ####[facility] [address] [place] [address] Lab Director: Rishabh Mendieta MD Potassium [Moles/Vol] 4.0 mmol/L Normal 3.7-5.3 [facility] Comment on above: Performed By: #### B MP ####[address] [place], [place] [address] Lab Director: Murtaza Arceo MD#### GLYHGB, URNMAB ####[facility] [address] [place], [place] [address] Lab Director: Rishabh Mendieta MD Sodium [Moles/Vol] 138 mmol/L Normal 135-144 [facility] Comment on above: Performed By: #### B MP ####[facility] , [place] 279[address] Lab Director: Murtaza Arceo MD#### GLYHGB, URNMAB ####[facility] [address] [place] [address] Lab Director: Rishabh Mendieta MD Urea nitrogen [Mass/Vol] 10 mg/dL Normal 6-20 [facility] Comment on above: Performed By: #### B MP ####[facility] , [place] [address] Lab Director: Murtaza Arceo MD#### GLYHGB, URNMAB ####[facility] [address] [place], [place] [address] Lab Director: Rishabh Mendieta MD Hemoglobin A1Con 04-21-2024 Average glucose Estimated from glycated hemoglobin (Bld) [Mass/Vol] 235 mg/dL [facility] Comment on above: The ADA and AACC rec ommend providing the estimated average glucose result to permit better patient understanding of their HBA1c result. HbA1c (Bld) [Mass fraction] 9.8 % High 4.0 - 6.0 % [facility] Interpretation and review of laboratory results Abnormal [facility] Glucose [Mass/Vol] 235 mg/dL Normal [facility] Comment on above: Result Comment: The ADA and AACC recommend providing the estimated average glucose result to permit better patient understanding of their HBA1c result. Performed By: #### B MP ####[facility] , [place] [id number] Lab Director: Murtaza Arceo MD#### GLYHGB, URNMAB ####[facility] [place] [address] Lab Director: Rishabh Mendieta MD HbA1c (Bld) [Mass fraction] 9.8 % High 4.0-6.0 [facility] Comment on above: Performed By: #### B MP ####[facility] [place], [place] [address] Lab Director: Murtaza Arceo MD#### GLYHGB, URNMAB ####[facility] [place] [address] Lab Director: Rishabh Mendieta MD .UA Microscp Aon 04-20-2024 UA Mucus Present Normal Absent [facility] Comment on above: Performed By: #### U CI #### [address] [address] UA RBC Quant 0 /HPF Normal 0-5 [facility] Comment on above: Performed By: #### U CI #### [address] [address] UA Squepi Cells Quant <1 Normal 0-29 [facility] Comment on above: Performed By: #### U CI #### [address] [address] UA WBC Quant 0 /HPF Normal 0-5 [facility] Comment on above: Performed By: #### U CI #### [address] [address] .eGFRon 04-20-2024 GFR/1.73 sq M.predicted MDRD (S/P/Bld) [Vol rate/Area] mL/min/{1.73_m2} Normal >=60 [facility] Comment on above: Result Comment: [facility] have implemented the eGFR calculation [...] 1 Age = years Performed By: #### L IP #### [place] [id number] CBC w/ Diffon 04-20-2024 Erythrocyte distribution width (RBC) [Ratio] 13.3 % Normal 11.6-14.8 [facility] Comment on above: Performed By: #### C BC #### [place] [id number] Hematocrit (Bld) [Volume fraction] 42.4 % Normal 36.0-46.0 [facility] Comment on above: Performed By: #### C BC #### [place] [id number] Hemoglobin (Bld) [Mass/Vol] 14.3 g/dL Normal 12.0-16.0 [facility] Comment on above: Performed By: #### C BC #### [place] [id number] MCH (RBC) [Entitic mass] 30.2 pg Normal 27.0-35.0 [facility] Comment on above: Performed By: #### C BC #### [address] [address] MCHC 33.9 % Normal 31.0-37.0 [facility] Comment on above: Performed By: #### C BC #### [place] [id number] MCV (RBC) [Entitic vol] 89.3 fL Normal 80.0-100.0 [facility] Comment on above: Performed By: #### C BC #### [address] [address] Platelet 321 x10*3/mcL Normal 150-450 [facility] Comment on above: Performed By: #### C BC #### [address] [address] Platelet mean volume (Bld) [Entitic vol] 9.3 fL Normal 6.7-10.6 [facility] Comment on above: Performed By: #### C BC #### [address] [address] RBC 4.74 x10*6/mcL Normal 3.80-5.20 [facility] Comment on above: Performed By: #### C BC #### [address] [address] WBC 12.6 x10*3/mcL High 4.5-11.0 [facility] Comment on above: Performed By: #### C BC #### [address] [address] CMPon 04-20-2024 Albumin [Mass/Vol] 3.9 g/dL Normal 3.2-4.9 [facility] Comment on above: Performed By: #### C BC #### [address] [address] Albumin/Globulin [Mass ratio] 1.0 {ratio} Low 1.1-2.2 [facility] Comment on above: Performed By: #### C BC #### [address] [address] Alk Phos 92 IU/L High 32-91 [facility] Comment on above: Performed By: #### C BC #### [address] [address] ALT [Catalytic activity/Vol] 71 U/L High 14-54 [facility] Comment on above: Performed By: #### C BC #### [facility] [address] [facility] [place] [address] Anion gap [Moles/Vol] 9 mmol/L Normal 4-12 [facility] Comment on above: Performed By: #### C BC #### [facility] [address] [place] [address] [place] [address] AST [Catalytic activity/Vol] 81 U/L High 15-41 [facility] Comment on above: Performed By: #### C BC #### [address] [place] [address] Bili Total 0.6 mg/dL Normal 0.3-1.2 [facility] Comment on above: Performed By: #### C BC #### [facility] [address] [place] [address] [place] [address] Calcium [Mass/Vol] 9.2 mg/dL Normal 8.5-10.3 [facility] Comment on above: Performed By: #### C BC #### [facility] [address] [place] [address], [place] [address] Chloride [Moles/Vol] 102 mmol/L Normal 98-110 [facility] Comment on above: Performed By: #### C BC #### [address] [place] [address] CO2 [Moles/Vol] 23 mmol/L Normal 22-32 [facility] Comment on above: Performed By: #### C BC #### [address] [place] [address] Creatinine [Mass/Vol] 0.84 mg/dL Normal 0.44-1.03 [facility] Comment on above: Performed By: #### C BC #### [address] [place] [address] Glucose [Mass/Vol] 277 mg/dL High 70-99 [facility] Comment on above: Performed By: #### C BC #### [address] [place] [address] Potassium [Moles/Vol] 3.6 mmol/L Normal 3.4-4.8 [facility] Comment on above: Performed By: #### C BC #### [address] [address] Protein [Mass/Vol] 7.8 g/dL Normal 6.5-8.1 [facility] Comment on above: Performed By: #### C BC #### [address] [address] Sodium [Moles/Vol] 134 mmol/L Normal 133-142 [facility] Comment on above: Performed By: #### C BC #### [address] [address] Urea nitrogen [Mass/Vol] 12 mg/dL Normal 8-26 [facility] Comment on above: Performed By: #### C BC #### [address] [address] Urea nitrogen/Creatinine [Mass ratio] 14.3 mg/mg Normal 10.0-20.0 [facility] Comment on above: Performed By: #### C BC #### [address] [address] CRPon 04-20-2024 CRP 2.06 mg/dL High 0.00-0.75 [facility] Comment on above: Result Comment: CRP measurement is useful for assessment of non-specific INFLAMMATORY RESPONSE to infection or injury AND is a sensitive MARKER of ACUTE INFLAMMATION including CARDIAC RISK ASSESSMENT. CARDIAC patients with elevated CRP are POTENTIALLY at a HIGHER RISK OF FUTURE CARDIAC EVENTS. Performed By: #### C [id number] #### [address] [address] [address] Abdomen Pelvis w/ IV Cont raston 04-20-2024 CT Abdomen Pelvis w/ IV Contrast EXAMINATION: CT Abdomen Pelvis w/ IV Contrast HISTORY: Abdominal pain, left lower quadrant, COMPARISON: CT abdomen and pelvis dated 11/13/2023 TECHNIQUE: Following uneventful administration of 100 mL Omnipaque 350 IV contrast, helical imaging of the abdomen and pelvis was performed. Multiplanar reformatted images are submitted. Dose reduction techniques were achieved by using: automated exposure control and/or adjustment of mA and /or kV according to patient size and/or use of iterative reconstruction technique. FINDINGS: Limited evaluation of the lung bases demonstrates no acute findings. Hepatic steatosis and hepatomegaly is again identified. The gallbladder is absent. Negative for acute splenic or adrenal abnormality. Negative for acute pancreatic abnormality. Minimally heterogeneous enhancement of the left renal cortex, most conspicuous at the upper pole. Several left renal cysts are identified. No hydronephrosis. Borderline urinary bladder wall thickening. The uterus is absent. Moderate to large volume formed colonic stool. Normal appendix. No free intra-abdominal air or fluid. Negative for pathologically enlarged lymph nodes in the abdomen or pelvis. Negative for acute superficial soft tissue abnormality. Negative for acute bony findings. IMPRESSION: 1. Minimally heterogeneous enhancement of the left renal cortex with borderline urinary bladder wall thickening, recommend correlation with urinalysis as a manifestation of an early urinary tract infection/pyelonephrit is is possible. 2. Otherwise negative for acute intra-abdominal or pelvic abnormality. 2. Hepatic steatosis and hepatomegaly. 4. Moderate to large volume formed colonic stool. Radiation Dose Estimate: CTDI(mGy):0.044250 / / / kVp:120.413149 / mAs:0.702674 / / / DLP(mGy-cm):4.512693Ta dy Part: Abdomen CTDI(mGy):48.801014 / / / kVp:140.967018 / mAs:209.948026 / / / DLP(mGy-cm):2645.86713 8Body Part: Abdomen Final Dictated by: Cr Gomez MD Dictated DT/TM: 04.20.2024 9:18 pm Signed by: Cr Gomez MD Signed (Electronic Signature): 04.20.2024 9:20 pm (If Report Is Signed, Electronically Signed in Other Vendor System) Normal [facility] Diff Autoon 04-20-2024 Baso Absolute 0.1 x10*3/mcL Normal 0.0-0.2 [facility] Comment on above: Performed By: #### C [id number] #### [facility] [address] [place] [address] Basophils/100 WBC (Bld) 1.2 % Normal 0.0-1.5 [facility] Comment on above: Performed By: #### C [id number] #### [address] [address] Eos Absolute 0.1 x10*3/mcL Normal 0.0-0.4 [facility] Comment on above: Performed By: #### C [id number] #### [address] [address] Eosinophils/100 WBC (Bld) 0.9 % Normal 0.0-5.4 [facility] Comment on above: Performed By: #### C [id number] #### [address] [address] Lymph Absolute 4.0 x10*3/mcL Normal 1.0-4.8 [facility] Comment on above: Performed By: #### C [id number] #### [address] [address] Lymphocytes/100 WBC (Bld) 31.4 % Normal 27.2-40.8 [facility] Comment on above: Performed By: #### C [id number] #### [address] [address] [place] Absolute 0.4 x10*3/mcL Normal 0.1-1.1 [facility] Comment on above: Performed By: #### C [id number] #### [address] [address] Monocytes/100 WBC (Bld) 3.3 % Low 3.7-11.9 [facility] Comment on above: Performed By: #### C D:[id number] #### [address] [address] Neutro Absolute 7.9 x10*3/mcL High 1.8-7.7 [facility] Comment on above: Performed By: #### C D:[id number] #### [address] [address] Neutro Auto 63.2 % Normal 47.2-70.8 [facility] Comment on above: Performed By: #### C D:[id number] #### [facility] [address] [place] [address] ED Clinical Summaryon 2023 ED Clinical Summary [facility] [address] [place] [id number] ED Clinical Summary [facility] Age[facility] 28 Years : 1995 Sex: Female PCP: Chantel GREWAL, Yossi Paz Marital Status: Phone: Race: White Ethnicity: Not or Language: Somali Visit Reason: Abdominal pain; abdominal pain Acuity: 3 Enc Type: Emergency Med Service: Emergency Medicine Arrival: 04/20/2024 17:35:29 Discharge: 04/20/2024 22:10:00 LOS: 000 04:35 Checkin: 04/20/2024 17:35:29 Checkout: 04/20/2024 22:10:00 Dispo Type: Home or Self Care Address: [address] [place] [phone] Provider Notes: Diagnosis: 1:Abdominal pain; 2:Nausea vomiting and diarrhea; 3:Diabetes mellitus with hyperglycemia; 4:Elevated LFTs; 5:Constipation; 6:Viral illness; 7:Gastroenteritis Problems No Problems Documented Smoking Status: Smoking Status 10 or more cigarettes (1/2 pack or more)/day in last 30 days Functional Status: Sensory Deficits: History of Falls: Mobility Assistance Prior to Admission: ADLs: Current Level of Assistance for Self-Care/Mobility: Cognitive Status: Allergies Latex (Rash) penicillin (Hives) Pyridium (Anxiety) Toradol (Shortness of breath) egg-containing compound (Nausea) Laboratory or Other Results This Visit (last charted value for your 04/20/2024 visit) Hematology 04/20/2024 6:47 PM WBC: 12.6 x10 RBC: 4.74 x10 Neutro Auto: 63.2 % -- Normal range between ( 47.2 and 70.8 ) Lymph Auto: 31.4 % -- Normal range between ( 27.2 and 40.8 ) [place] Auto: 3.3 % -- Normal range between ( 3.7 and 11.9 ) Eos Auto: 0.9 % -- Normal range between ( 0.0 and 5.4 ) Basophil Auto: 1.2 % -- Normal range between ( 0.0 and 1.5 ) Baso Absolute: 0.1 x10 MCV: 89.3 fL -- Normal range between ( 80.0 and 100.0 ) MCHC: 33.9 % -- Normal range between ( 31.0 and 37.0 ) Lymph Absolute: 4.0 x10 Hct: 42.4 % -- Normal range between ( 36.0 and 46.0 ) [place]high Absolute: 0.4 x10 MCH: 30.2 pg -- Normal range between ( 27.0 and 35.0 ) Neutro Absolute: 7.9 x10 Hgb: 14.3 g/dL -- Normal range between ( 12.0 and 16.0 ) Mean Platelet Volume: 9.3 fL -- Normal range between ( 6.7 and 10.6 ) Platelet: 321 x10 Eos Absolute: 0.1 x10 RDW: 13.3 % -- Normal range between ( 11.6 and 14.8 ) Urinalysis 04/20/2024 8:14 PM UA Color: Light-Yellow UA Urobilinogen: Normal mg/dL UA Bili: Negative UA Ketones: Negative mg/dL UA Leukocyte Esterase: Negative UA Nitrite: Negative UA Glucose: Normal mg/dL UA Protein: 30 mg/dL UA Blood: Negative UA Spec Grav: OVER -- Normal range between ( 1.003 and 1.035 ) UA pH: 6.5 UA Clarity: Clear UA Source: Clean Catch UA Mucus: Present /LPF UA WBC Quant: 0 /HPF -- Normal range between ( 0 and 5 ) UA RBC Quant: 0 /HPF -- Normal range between ( 0 and 5 ) UA Squepi Cells Quant: <1 /HPF -- Normal range between ( 0 and 29 ) Chemistry 04/20/2024 6:47 PM Creatinine Lvl: 0.84 mg/dL -- Normal range between ( 0.44 and 1.03 ) BUN: 12 mg/dL -- Normal range between ( 8 and 26 ) Glucose Lvl: 277 mg/dL -- Normal range between ( 70 and 99 ) Potassium Lvl: 3.6 mmol/L -- Normal range between ( 3.4 and 4.8 ) CRP: 2.06 mg/dL -- Normal range between ( 0.00 and 0.75 ) AST: 81 IU/L -- Normal range between ( 15 and 41 ) ALT: 71 IU/L -- Normal range between ( 14 and 54 ) Sodium Lvl: 134 mmol/L -- Normal range between ( 133 and 142 ) Lipase Lvl: 73 IU/L -- Normal range between ( 22 and 51 ) Calcium Lvl: 9.2 mg/dL -- Normal range between ( 8.5 and 10.3 ) Albumin Lvl: 3.9 g/dL -- Normal range between ( 3.2 and 4.9 ) Total Protein: 7.8 g/dL -- Normal range between ( 6.5 and 8.1 ) Magnesium Lvl: 2.0 mg/dL -- Normal range between ( 1.7 and 2.4 ) Bili Total: 0.6 mg/dL -- Normal range between ( 0.3 and 1.2 ) Alk Phos: 92 IU/L -- Normal range between ( 32 and 91 ) Chloride: 102 mmol/L -- Normal range between ( 98 and 110 ) CO2: 23 mmol/L -- Normal range between ( 22 and 32 ) Anion Gap: 9 -- Normal range between ( 4 and 12 ) Estimated GFR: >60 mL/min/1.73m? BUN Crea Ratio: 14.3 -- Normal range between ( 10.0 and 20.0 ) AG Ratio: 1.0 -- Normal range between ( 1.1 and 2.2 ) Computed Tomography 04/20/2024 7:[address] Abdomen Pelvis w/ IV Contrast: CT Abdomen Pelvis w/ IV Contrast Measurements: Height: Weight: 150.2 kg Blood Pressure: /74 mmHg BMI: Procedures No Procedures Documented Immunizations No Immunizations Documented This Visit Final Med List: New Medications [facility] [id number], [address] [place], [place] [id number], [phone] scopolamine (Transderm-Scop 1 mg/72 hr transdermal film, extended release) 1 Patches Transdermal (apply on the skin) every 72 hours as needed nausea/vomiting. apply to skin. Refills: 0. Last Dose: ___ Medications That Were Updated - Follow Current Instructions (more content not included)... Normal [facility] ED Note-Physicianon 04-20-20 ED Note-Physician Chief Complaint c/o abdominal pain, diarrhea and nausea since yesterday. History of Present Illness Patient is a 28 year old female presenting to the ED for lower abdominal pain, nausea, diarrhea, and vomiting that [place] after eating canned Spaghetti O's and Jeannine's. She has had 4 or more nonbloody loose bowel movements so far today, but only had nonbloody vomit yesterday. She is also experiencing some lightheadedness and dizziness, but this is baseline for her due to her diabetes. Her usual sugars are between 180-190 and they are currently at 250. No one else in the family has the same symptoms, but their youngest son had more foul smelling stool when they changed his diaper this morning. Patient denies urinary issues, vaginal discharge, and known fever. She has had a full hysterectomy, 3 c-sections, cholecystectomy, colonoscopy, and endoscopy that diagnosed reflux in the past. She is not on anticoagulants and occasionally drinks, but does not smoke or do recreational drugs. Review of Systems As reviewed in the HPI. All other systems reviewed are negative or normal. Physical Exam CONSTITUTIONAL: [no apparent distress, well appearing] SKIN: [warm, dry, no jaundice, hives or petechiae] EYES: [pupils are equally round, extraocular movements intact without nystagmus, clear conjunctiva, non-icteric sclera] HENT: [normocephalic, atraumatic, moist mucus membranes, oropharynx clear without exudates] NECK: [Nontender and supple with no nuchal rigidity, no lymphadenopathy, full range of motion] PULMONARY: [clear to auscultation without wheezes, rhonchi, or rales, normal excursion, no accessory muscle use and no stridor] CARDIOVASCULAR: [regular rate, rhythm, normal S1 and S2. No appreciated murmurs. Strong radial pulses with intact distal perfusion] GASTROINTESTINAL: [lower abdominal tenderness; soft, non-distended, no palpable masses, no rebound or guarding] GENITOURINARY: [No costovertebral angle tenderness to palpation] LYMPHATICS: [no edema in lower extremities, no lymphadenopathy] MUSCULOSKELETAL: [Extremities are nontender to palpation and have no gross deformity, no edema, redness, or swelling] NEUROLOGIC: [alert and oriented x 3, GCS 15, normal mentation and speech. Moves all extremities x 4 without motor or sensory deficit, gait is stable without ataxia] PSYCHIATRIC: [normal mood and affect, thought process is clear and linear] Vitals & Measurements T: 36.4 ?C (Oral) HR: 97 (Peripheral) RR: 16 BP: 118/74 SpO2: 97% HT: 172 cm WT: 150.2 kg (Dosing) Additional Vitals No qualifying data available. Procedure No qualifying data available. ASA Documentation Medical Decision Making Adam Givens scribing for and in the presence of Dr. Abel. Scribe Attestation: The information in this document, created by the medical grade shoemaker for me, accurately reflects the services I personally performed and the decisions made by me. This report has been created using voice recognition software. It may contain minor errors which are inherent in voice recognition technology. MEDICAL DECISION MAKING Number and Complexity of Problems Differential Diagnosis: _Viral illness, COVID, flu, gastroenteritis, gastritis, GERD, peptic ulcer disease, diverticulitis, pancreatitis, cholecystitis, UTI, , obstruction, ileus, constipation, cancer MDM Data External documents reviewed: _ My EKG interpretation: _ My CT interpretation: _1. Minimally heterogeneous enhancement of the left renal cortex with borderline urinary bladder wall thickening, recommend correlation with urinalysis as a manifestation of an early urinary tract infection/pyelonephrit is is possible. 2. Otherwise negative for acute intra-abdominal or pelvic abnormality. 2. Hepatic steatosis and hepatomegaly. 4. Moderate to large volume formed colonic stool. My X-ray interpretation: _ My Ultrasound interpretation: _ Decision rules/scores evaluated: _ Discussed with: _ Decision rules/scores evaluated: _ ? HEART Score: Not Completed ? PERC Rule: _ ? NEXUS C-spine Criteria: _ ? [place] Ankle Rule: _ ? [place] Knee Rule: _ ? Wells Criteria for DVT: _ ? Wells Criteria for PE: _ Discussed with: _ Treatment and Disposition ED Course: _Patient seen and evaluated. Examination findings as noted above. Abdominal labs were ordered as well as CT of the abdomen pelvis. Patient was given IV fluids, pain meds, antiemetics, antacids, antispasmodics. On review of the laboratory values, there are findings of white blood cell count 12.6, slightly elevated glucose, and elevated inflammatory markers, slight elevation of LFTs however stable from prior, lipase is minimally elevated as well at 73, urine is normal. No additional abnormal findings. On review of imaging, there are findings of potential developing UTI, some constipation, large liver, no other acute findings. On review reevaluation of patient, she reports she felt improved following the medicati (more content not included)... Normal [facility] Lipaseon 04-20-2024 Lipase Lvl 73 IU/L High 22-51 [facility] Comment on above: Performed By: #### L IP #### [place] [id number] Magnesiumon 04-20-2024 Magnesium [Mass/Vol] 2.0 mg/dL Normal 1.7-2.4 [facility] Comment on above: Performed By: #### . Urinalysis Microscopic Auto #### [address] [address] UA w Culture if Indon 2023 Color (U) Light-Yellow Normal Yellow [facility] Comment on above: Performed By: #### U CI #### [address] [address] Ketones Ql (U) Negative Normal Negative [facility] Comment on above: Performed By: #### U CI #### [address] [address] UA Blood Negative Normal Negative [facility] Comment on above: Performed By: #### U CI #### [address] [address] UA Clarity Clear Normal Clear [facility] Comment on above: Performed By: #### U CI #### [address] [address] UA Glucose Normal Normal Negative [facility] Comment on above: Performed By: #### U CI #### [address] [address] UA Leukocyte Esterase Negative Normal Negative [facility] Comment on above: Performed By: #### U CI #### [address] [place] [address] UA Nitrite Negative Normal Negative [facility] Comment on above: Performed By: #### U CI #### [address] [place] [address] UA pH 6.5 Normal 4.5 - 7.8 [facility] Comment on above: Performed By: #### U CI #### [address] [address] UA Protein 30 mg/dL Abnormal Negative [facility] Comment on above: Performed By: #### U CI #### [address] [address] UA Source Clean Catch Normal [facility] Comment on above: Performed By: #### U CI #### [address] [address] UA Spec Grav OVER Normal 1.003-1.035 [facility] Comment on above: Performed By: #### U CI #### [address] [address] UA Urobilinogen Normal Normal 0.2 - 1.0 [facility] Comment on above: Performed By: #### U CI #### [address] [address] Urobilinogen (U) [Mass/Vol] Negative Normal Negative [facility] Comment on above: Performed By: #### U CI #### [address] [address] Basic Metabolic Profon 04-09 Glucose [Mass/Vol] 401 mg/dL Critically high 70-99 [facility] Comment on above: Performed By: #### C DP, BH, BMP ####[facility] [place], [place] [id number] lab Director: Murtaza Arceo MD Anion gap [Moles/Vol] 16 mmol/L Normal 9-17 [facility] Comment on above: Performed By: #### C VENKAT , BMP ####[address] , [place] [address] Lab Director: Murtaza Arceo MD BUN/CRE Ratio 13 Normal 9-20 [facility] Comment on above: Performed By: #### C VENKAT , BMP ####[address] [place] [address] Lab Director: Murtaza Arceo MD Calcium [Mass/Vol] 9.4 mg/dL Normal 8.6-10.4 [facility] Comment on above: Performed By: #### C VENKAT , BMP ####[address] [place] [address] Lab Director: Murtaza Arceo MD Chloride [Moles/Vol] 101 mmol/L Normal 98-107 [facility] Comment on above: Performed By: #### C VENKAT , BMP ####[address] , [place] [address] Lab Director: Murtaza Arceo MD CO2 [Moles/Vol] 19 mmol/L Low 20-31 [facility] Comment on above: Performed By: #### C VENKAT , BMP ####[address] [place] [address] Lab Director: Murtaza Arceo MD Creatinine [Mass/Vol] 0.8 mg/dL Normal 0.5-0.9 [facility] Comment on above: Performed By: #### C VENKAT , BMP ####[address] , [place] 8[address]83 Lab Director: Murtaza Arceo MD GFR/1.73 sq M.predicted among non-blacks MDRD (S/P/Bld) [Vol rate/Area] mL/min/{1.73_m2} Normal >60 [facility] Comment on above: Result Comment: Thes [...] Performed By: #### C DORIE ROBLEDO, BMP ####[address] [place] [address] Lab Director: Murtaza Arceo MD Potassium [Moles/Vol] 3.8 mmol/L Normal 3.7-5.3 [facility] Comment on above: Performed By: #### C DORIE ROBLEDO, BMP ####[address] [place] [address] Lab Director: Murtaza Arceo MD Sodium [Moles/Vol] 136 mmol/L Normal 135-144 [facility] Comment on above: Performed By: #### C DORIE ROBLEDO, BMP ####[address] [place] [address] Lab Director: Murtaza Arceo MD Urea nitrogen [Mass/Vol] 10 mg/dL Normal 6-20 [facility] Comment on above: Performed By: #### C DORIE ROBLEDO, BMP ####[address] [place] [address] Lab Director: Murtaza Arceo MD Beta Hydroxybutyrateon 04-09 Beta Hydroxybutyrate 0.14 mmol/L Normal 0.02-0.27 [facility] Comment on above: Performed By: #### C DORIE ROBLEDO, BMP ####[address] , [place] [id number] Lab Director: Murtaza Arceo MD CBC with Diffon 04-09-2024 Abs. Basophil 0.03 k/uL Normal 0.00-0.20 [facility] Comment on above: Performed By: #### C DORIE ROBLEDO, BMP ####[address] [place] [id number] Lab Director: Murtaza Arceo MD Abs.Imm.Granulocyte 0.03 k/uL Normal 0.00-0.30 [facility] Comment on above: Performed By: #### C VENKAT , BMP ####[address] [place], [place] [address])[phone] Director: Murtaza Arceo MD Abs.Neutrophil (Seg) 7.10 k/uL Normal 1.50-8.10 [facility] Comment on above: Performed By: #### C VENKAT , BMP ####[address] [place], [place] [address])[phone] Director: Murtaza Arceo MD Basophils/100 WBC (Bld) 0 % Normal 0-2 [facility] Comment on above: Performed By: #### C VENKAT , BMP ####[address] [place], [place] [address])[phone] Director: Murtaza Arceo MD Eosinophils (Bld) [#/Vol] 0.08 10*3/uL Normal 0.00-0.44 [facility] Comment on above: Performed By: #### C VENKAT , BMP ####[address] [place], [place] [address])[phone] Director: Murtaza Arceo MD Eosinophils/100 WBC (Bld) 1 % Normal 1-4 [facility] Comment on above: Performed By: #### C VENKAT , BMP ####[address] [place] [address])[phone] Director: Murtaza Arceo MD Erythrocyte distribution width (RBC) [Ratio] 13.1 % Normal 11.8-14.4 [facility] Comment on above: Performed By: #### C VENKAT , BMP ####[address] , [facility]83 Lab Director: Murtaza Arceo MD Hematocrit (Bld) [Volume fraction] 44.4 % Normal 36.3-47.1 [facility] Comment on above: Performed By: #### C VENKAT , BMP ####[address] [place] [address] Lab Director: Murtaza Arceo MD Hemoglobin (Bld) [Mass/Vol] 14.9 g/dL Normal 11.9-15.1 [facility] Comment on above: Performed By: #### C VENKAT , BMP ####[address] [place] [address] Lab Director: Murtaza Arceo MD Immature granulocytes/100 WBC (Bld) 0 % Normal 0 [facility] Comment on above: Performed By: #### C VENKAT , BMP ####[address] [place] [address])[phone] Director: Murtaza Arceo MD Lymphocytes (Bld) [#/Vol] 2.57 10*3/uL Normal 1.10-3.70 [facility] Comment on above: Performed By: #### C VENKAT , BMP ####[address] [place] [address] Lab Director: Murtaza Arceo MD Lymphocytes/100 WBC (Bld) 25 % Normal 24-43 [facility] Comment on above: Performed By: #### C VENKAT , BMP ####[address] , [facility]83 Lab Director: Murtaza Arceo MD MCH (RBC) [Entitic mass] 30.6 pg Normal 25.2-33.5 [facility] Comment on above: Performed By: #### C VENKAT , BMP ####[address] , [facility])[phone] Director: Murtaza Arceo MD MCHC (RBC) [Mass/Vol] 33.6 g/dL Normal 28.4-34.8 [facility] Comment on above: Performed By: #### C VENKAT , BMP ####[address] [place] [address] Lab Director: Murtaza Arceo MD MCV (RBC) [Entitic vol] 91.2 fL Normal 82.6-102.9 [facility] Comment on above: Performed By: #### C VENKAT , BMP ####[address] [place] [address] Lab Director: Murtaza Arceo MD Monocytes (Bld) [#/Vol] 0.48 10*3/uL Normal 0.10-1.20 [facility] Comment on above: Performed By: #### C VENKAT , BMP ####[address] , [place] [id number])[phone] Director: Murtaza Arceo MD Monocytes/100 WBC (Bld) 5 % Normal 3-12 [facility] Comment on above: Performed By: #### C VENKAT , BMP ####[address] [place] [address] Lab Director: Murtaza Arceo MD Neutrophil (Seg) 69 % High 36-65 [facility] Comment on above: Performed By: #### C VENKAT , BMP ####[address] [place] [address] Lab Director: Murtaza Arceo MD NRBC Automated 0.0 per 100 WBC Normal 0.0 [facility] Comment on above: Performed By: #### C VENKAT , BMP ####[address] [place] [address] Lab Director: Murtaza Arceo MD Platelet mean volume (Bld) [Entitic vol] 11.0 fL Normal 8.1-13.5 [facility] Comment on above: Performed By: #### C DORIE ROBLEDO, BMP ####[address] , [place] 486[address]83 Lab Director: Murtaza Arceo MD Platelets (Bld) [#/Vol] 288 10*3/uL Normal 138-453 [facility] Comment on above: Performed By: #### C DORIE ROBLEDO, BMP ####[facility] , [place] [address] Lab Director: Murtaza Arceo MD RBC (Bld) [#/Vol] 4.87 10*6/uL Normal 3.95-5.11 [facility] Comment on above: Performed By: #### C DORIE ROBLEDO, BMP ####[address] , [place] 228[address]83 Lab Director: Murtaza Arceo MD WBC (Bld) [#/Vol] 10.3 10*3/uL Normal 3.5-11.3 [facility] Comment on above: Performed By: #### C DORIE ROBLEDO, BMP ####[address] , [place] 0529383 Lab Director: Murtaza Arceo MD Glucose, Whole Bloodon 04-09 Glucose [Mass/Vol] 304 mg/dL High 74-100 [facility] Glucose [Mass/Vol] 388 mg/dL High 74-100 [facility] UA w/Reflex Cultureon 2023 Bilirubin, SemiQt,Ur Negative Normal NEG [facility] Comment on above: Performed By: #### U CINDY LOJAO ####[address] , [place] [address] Lab Director: Murtaza Arceo MD Blood, Urine Negative Normal NEG [facility] Comment on above: Performed By: #### CINDY MUNROEO ####[address] [place] [address] Lab Director: Murtaza Arceo MD Clarity (U) Clear Normal CLEAR [facility] Comment on above: Performed By: #### U AX, UMICAO ####[address] [place] [address] Lab Director: Murtaza Arceo MD Color (U) Yellow Normal YEL [facility] Comment on above: Performed By: #### U AX, UMICAO ####[address] [place] [address] Lab Director: Murtaza Arceo MD Glucose Ql (U) 3+ mg/dL Abnormal NEG [facility] Comment on above: Performed By: #### U AX, UMICAO ####[address] [place] [address] Lab Director: Murtaza Arceo MD Ketones Ql (U) Negative Normal NEG [facility] Comment on above: Performed By: #### U AX, UMICAO ####[address] [place] [address] Lab Director: Murtaza Arceo MD Leukocyte esterase Test strip Ql (U) Negative Normal NEG [facility] Comment on above: Performed By: #### U AX, UMICAO ####[address] [place] [address] Lab Director: Murtaza Arceo MD Nitrite,Ur Negative Normal NEG [facility] Comment on above: Performed By: #### U AX, UMICAO ####[address] [place] [address] Lab Director: Murtaza Arceo MD PH,Ur 6.0 Normal 5.0-9.0 [facility] Comment on above: Performed By: #### U AX, UMICAO ####[address] [place], [place] [address] Lab Director: Murtaza Arceo MD Protein Ql (U) Negative Normal NEG [facility] Comment on above: Performed By: #### U AX, UMICAO ####[address] , [place] 3534383 lab Director: Murtaza Arceo MD Spec. [place],Ur 1.025 High 1.010-1.020 [facility] Comment on above: Performed By: #### U AX, UMICAO ####[address] , [place] 8526[address] lab Director: Murtaza Arceo MD Urobilinogen,Ur Normal Normal 0.0-1.0 [facility] Comment on above: Performed By: #### U AX, UMICAO ####[address] [place] [address] lab Director: Murtaza Arceo MD Urinalysis,Microon 4 Bacteria TRACE Abnormal NONE [facility] Comment on above: Performed By: #### U AX UMICAO ####[address] , [place] [id number] lab Director: Murtaza Arceo MD Epithelial cells LM Ql (Urine sed) 0 TO 2 Normal 0-25 [facility] Comment on above: Performed By: #### U AX, UMICAO ####[address] , [place] 9957[address] lab Director: Murtaza Arceo MD Mucus Strands TRACE Abnormal NONE [facility] Comment on above: Performed By: #### U AX, UMICAO ####[address] , [place] [address] lab Director: Murtaza Arceo MD Urine RBC's 0 TO 2 Normal 0-2 [facility] Comment on above: Performed By: #### U AX, UMICAO ####[address] [place] [address] Lab Director: Murtaza Arceo MD Urine WBC's 0 TO 2 Normal 0-5 [facility] Comment on above: Performed By: #### U AXCINDYO ####[address] [place] [address] Lab Director: Murtaza Arceo MD Beta Hydroxybutyrateon 04-06 Beta Hydroxybutyrate 0.18 mmol/L Normal 0.02-0.27 [facility] Comment on above: Performed By: #### C DP, BH, CP, MG ####[address] , [facility]83[facility])[phone] Director: Murtaza Arceo MD CBC with Diffon 04-06-2024 Abs. Basophil 0.06 k/uL Normal 0.00-0.20 [facility] Comment on above: Performed By: #### C DP, BH, CP, MG ####[address] , [place] [address])[phone] Director: Murtaza Arceo MD Abs.Imm.Granulocyte 0.03 k/uL Normal 0.00-0.30 [facility] Comment on above: Performed By: #### C DP, BH, CP, MG ####[address] , [place] [address])[phone] Director: Murtaza Arceo MD Abs.Neutrophil (Seg) 6.25 k/uL Normal 1.50-8.10 [facility] Comment on above: Performed By: #### C DP, BH, CP, MG ####[address] [place] [address]([facility])[phone] Director: Murtaza Arceo MD Basophils/100 WBC (Bld) 1 % Normal 0-2 [facility] Comment on above: Performed By: #### C DP, BH, CP, MG ####[address] , [facility]83 Lab Director: Murtaza Arceo MD Eosinophils (Bld) [#/Vol] 0.10 10*3/uL Normal 0.00-0.44 [facility] Comment on above: Performed By: #### C DP, BH, CP, MG ####[address] , [place] [address] Lab Director: Murtaza Arceo MD Eosinophils/100 WBC (Bld) 1 % Normal 1-4 [facility] Comment on above: Performed By: #### C DP, BH, CP, MG ####[address] , [id number] Lab Director: Murtaza Arceo MD Erythrocyte distribution width (RBC) [Ratio] 13.0 % Normal 11.8-14.4 [facility] Comment on above: Performed By: #### C DP, BH, CP, MG ####[address] , [id number] Lab Director: Murtaza Arceo MD Hematocrit (Bld) [Volume fraction] 45.7 % Normal 36.3-47.1 [facility] Comment on above: Performed By: #### C DP, BH, CP, MG ####[address] , [place] [address] Lab Director: Murtaza Arceo MD Hemoglobin (Bld) [Mass/Vol] 15.5 g/dL High 11.9-15.1 [facility] Comment on above: Performed By: #### C DP, BH, CP, MG ####[address] , [id number] Lab Director: Mutraza Arceo MD Immature granulocytes/100 WBC (Bld) 0 % Normal 0 [facility] Comment on above: Performed By: #### C DP, BH, CP, MG ####[address] , [id number] [facility] Director: Murtaza Arceo MD Lymphocytes (Bld) [#/Vol] 3.48 10*3/uL Normal 1.10-3.70 [facility] Comment on above: Performed By: #### C DP, BH, CP, MG ####[address] , [id number] Lab Director: Murtaza Arceo MD Lymphocytes/100 WBC (Bld) 34 % Normal 24-43 [facility] Comment on above: Performed By: #### C DP, BH, CP, MG ####[address] , [place] [address] lab Director: Murtaza Arceo MD MCH (RBC) [Entitic mass] 30.3 pg Normal 25.2-33.5 [facility] Comment on above: Performed By: #### C DP, BH, CP, MG ####[address] , [id number] lab Director: Murtaza Acreo MD MCHC (RBC) [Mass/Vol] 33.9 g/dL Normal 28.4-34.8 [facility] Comment on above: Performed By: #### C DP, BH, CP, MG ####[address] , [place] [address])[phone] Director: Murtaza Arceo MD MCV (RBC) [Entitic vol] 89.3 fL Normal 82.6-102.9 [facility] Comment on above: Performed By: #### C DP, BH, CP, MG ####[address] , [id number] Lab Director: Murtaza Arceo MD Monocytes (Bld) [#/Vol] 0.42 10*3/uL Normal 0.10-1.20 [facility] Comment on above: Performed By: #### C DP, BH, CP, MG ####[address] , [place] [id number] Lab Director: Murtaza Arceo MD Monocytes/100 WBC (Bld) 4 % Normal 3-12 [facility] Comment on above: Performed By: #### C DP, BH, CP, MG ####[address] , [place] 7596283 Lab Director: Murtaza Arceo MD Neutrophil (Seg) 60 % Normal 36-65 [facility] Comment on above: Performed By: #### C DP, BH, CP, MG ####[address] , [id number] Lab Director: Murtaza Arceo MD NRBC Automated 0.0 per 100 WBC Normal 0.0 [facility] Comment on above: Performed By: #### C DP, BH, CP, MG ####[address] , [id number] Lab Director: Murtaza Arceo MD Platelet mean volume (Bld) [Entitic vol] 12.1 fL Normal 8.1-13.5 [facility] Comment on above: Performed By: #### C DP, BH, CP, MG ####[address] , [id number])[phone] Director: Murtaza Arceo MD Platelets (Bld) [#/Vol] 309 10*3/uL Normal 138-453 [facility] Comment on above: Performed By: #### C DP, BH, CP, MG ####[address] [place] [address] Lab Director: Murtaza Arceo MD RBC (Bld) [#/Vol] 5.12 10*6/uL High 3.95-5.11 [facility] Comment on above: Performed By: #### C DP, BH, CP, MG ####[address] 7[address]83 Lab Director: Murtaza Arceo MD WBC (Bld) [#/Vol] 10.3 10*3/uL Normal 3.5-11.3 [facility] Comment on above: Performed By: #### C DP, BH, CP, MG ####[address] , [place] 7145283 Lab Director: Murtaza Arceo MD Comp Metabolic Profon 2023 Albumin [Mass/Vol] 4.4 g/dL Normal 3.5-5.2 [facility] Comment on above: Performed By: #### C DP, BH, CP, MG ####[address] [place] [address] Lab Director: Murtaza Arceo MD Albumin/Glob Ratio 1.1 Normal 1.0-2.5 [facility] Comment on above: Performed By: #### C DP, BH, CP, MG ####[address] [place] [address] Lab Director: Murtaza Arceo MD Alkaline Phos 133 U/L High 35-104 [facility] Comment on above: Performed By: #### C DP, BH, CP, MG ####[address] , [place] 4215483 Lab Director: Murtaza Arceo MD ALT [Catalytic activity/Vol] 81 U/L High 5-33 [facility] Comment on above: Performed By: #### C DP, BH, CP, MG ####[address] , [place] 0892883 Lab Director: Murtaza Arceo MD Anion gap [Moles/Vol] 13 mmol/L Normal 9-17 [facility] Comment on above: Performed By: #### C DP, BH, CP, MG ####[address] , [place] 4367683 Lab Director: Murtaza Arceo MD AST [Catalytic activity/Vol] 140 U/L High <32 [facility] Comment on above: Performed By: #### C DP, BH, CP, MG ####[address] , [place] 6406583 Lab Director: Murtaza Arceo MD Bilirubin [Mass/Vol] 0.5 mg/dL Normal 0.3-1.2 [facility] Comment on above: Performed By: #### C DP, BH, CP, MG ####[address] , [place] 3063583 Lab Director: Murtaza Arceo MD BUN/CRE Ratio 18 Normal 9-20 [facility] Comment on above: Performed By: #### C DP, BH, CP, MG ####[address] , [place] 6227183 Lab Director: Murtaza Arceo MD Calcium [Mass/Vol] 9.8 mg/dL Normal 8.6-10.4 [facility] Comment on above: Performed By: #### C DP, BH, CP, MG ####[address] , [place] 4070383 Lab Director: Murtaza Arceo MD Chloride [Moles/Vol] 101 mmol/L Normal 98-107 [facility] Comment on above: Performed By: #### C DP, BH, CP, MG ####[address] , [place] 3302683 Lab Director: Murtaza Arceo MD CO2 [Moles/Vol] 25 mmol/L Normal 20-31 [facility] Comment on above: Performed By: #### C DP, BH, CP, MG ####[address] , [place] 3949883 Lab Director: Murtaza Arceo MD Creatinine [Mass/Vol] 0.6 mg/dL Normal 0.5-0.9 [facility] Comment on above: Performed By: #### C DP, BH, CP, MG ####[address] [place] [address] Lab Director: Murtaza Arceo MD GFR/1.73 sq M.predicted among non-blacks MDRD (S/P/Bld) [Vol rate/Area] mL/min/{1.73_m2} Normal >60 [facility] Comment on above: Result Comment: Thes [...] tubular secretion. Performed By: #### C DP, BH, CP, MG ####[address] , [place] 4142283 Lab Director: Murtaza Arceo MD Glucose [Mass/Vol] 391 mg/dL High 70-99 [facility] Comment on above: Performed By: #### C DP, BH, CP, MG ####[address] , [place] 5554883 Lab Director: Murtaza Arceo MD Potassium [Moles/Vol] 4.8 mmol/L Normal 3.7-5.3 [facility] Comment on above: Performed By: #### C DP, BH, CP, MG ####[address] [place] [address] Lab Director: Murtaza Arceo MD Protein [Mass/Vol] 8.4 g/dL High 6.4-8.3 [facility] Comment on above: Performed By: #### C DP, BH, CP, MG ####[address] , [place] 6012183 Lab Director: Murtaza Arceo MD Sodium [Moles/Vol] 139 mmol/L Normal 135-144 [facility] Comment on above: Performed By: #### C DORIE ROBLEDO, CP, MG ####[address] , [place] 8086883 Lab Director: Murtaza Arceo MD Urea nitrogen [Mass/Vol] 11 mg/dL Normal 6-20 [facility] Comment on above: Performed By: #### C DORIE ROBLEDO, CP, MG ####[address] , [place] 0580683 Lab Director: Murtaza Arceo MD Glucose, Whole Bloodon 04-06 Glucose [Mass/Vol] 234 mg/dL High 74-100 [facility] Glucose [Mass/Vol] 318 mg/dL High 74-100 [facility] Glucose [Mass/Vol] 430 mg/dL High 74-100 [facility] Lactic Acidon 04-06-2024 Lactate [Moles/Vol] 1.9 mmol/L Normal 0.5-2.2 [facility] Comment on above: Performed By: #### L ACTIC ####[address] , [place] 9420483 Lab Director: Murtaza Arceo MD Lactate [Moles/Vol] 2.6 mmol/L High 0.5-2.2 [facility] Comment on above: Performed By: #### L ACTIC ####[address] , [place] 0663283 Lab Director: Murtaza Arceo MD Magnesiumon 04-06-2024 Magnesium [Mass/Vol] 2.0 mg/dL Normal 1.6-2.6 [facility] Comment on above: Performed By: #### C DORIE ROBLEDO, CP, MG ####[address] [place] [address] Lab Director: Murtaza Arceo MD UA w/Reflex Cultureon 2023 Bilirubin, SemiQt,Ur Negative Normal NEG [facility] Comment on above: Performed By: #### U MICAO, UAX ####[address] , [place] 3242383 Lab Director: Murtaza Arceo MD Blood, Urine 2+ Abnormal NEG [facility] Comment on above: Performed By: #### U MICAO, UAX ####[address] [place] [address] lab Director: Murtaza Arceo MD Clarity (U) Clear Normal CLEAR [facility] Comment on above: Performed By: #### U MICAO, UAX ####[address] , [place] 5125083 Lab Director: Murtaza Arceo MD Color (U) Yellow Normal YEL [facility] Comment on above: Performed By: #### U MICAO, UAX ####[address] [place] [address] Lab Director: Murtaza Arceo MD Glucose Ql (U) 3+ mg/dL Abnormal NEG [facility] Comment on above: Performed By: #### U MICAO, UAX ####[address] [place] [address] Lab Director: Murtaza Arceo MD Ketones Ql (U) Negative Normal NEG [facility] Comment on above: Performed By: #### U MICAO, UAX ####[address] , [place] 9907583 Lab Director: Murtaza Arceo MD Leukocyte esterase Test strip Ql (U) Negative Normal NEG [facility] Comment on above: Performed By: #### U MICAO, UAX ####[address] , [place] 0484183 Lab Director: Murtaza Arceo MD Nitrite,Ur Negative Normal NEG [facility] Comment on above: Performed By: #### U MICAO, UAX ####[address] [place] [address] [facility] Director: Murtaza Arceo MD PH,Ur 6.0 Normal 5.0-9.0 [facility] Comment on above: Performed By: #### U MICAO, UAX ####[address] [place] [address] lab Director: Murtaza Arceo MD Protein Ql (U) Negative Normal NEG [facility] Comment on above: Performed By: #### U MICAO, UAX ####[address] [place] [address]83 lab Director: Murtaza Arceo MD Spec. [place],Ur 1.020 Normal 1.010-1.020 [facility] Comment on above: Performed By: #### U MICAO, UAX ####[address] [place] [address] lab Director: Murtaza Arceo MD Urobilinogen,Ur Normal Normal 0.0-1.0 [facility] Comment on above: Performed By: #### U MICAO, UAX ####[address] [place] [address] lab Director: Murtaza Arceo MD Urinalysis,Microon 4 Epithelial cells LM Ql (Urine sed) 2 TO 5 Normal 0-25 [facility] Comment on above: Performed By: #### U MICAO, UAX ####[address] , [place] 4241783 lab Director: Murtaza Arceo MD Urine RBC's 0 TO 2 Normal 0-2 [facility] Comment on above: Performed By: #### U MICAO, UAX ####[address] , [place] 6313383 Lab Director: Murtaza Arceo MD Urine WBC's None Normal 0-5 [facility] Comment on above: Performed By: #### U FERNANDOO, UAX ####[facility] , [place] 0789883 Lab Director: Murtaza Arceo MD Venous Blood Gaseson 024 Pk Test NOT APPLICABLE [place] Comment on above: Performed By: #### V BG ####[address] , [place] 1054383 Lab Director: Murtaza Arceo MD Body Temp. 37.0 [facility] Comment on above: Performed By: #### V BG ####[address] [place] [address] Lab Director: Murtaza Arceo MD FIO2 21 [facility] Comment on above: Performed By: #### V BG ####[address] [place] [address] Lab Director: Murtaza Arceo MD HCO3 (Bld) [Moles/Vol] 22.1 mmol/L Low 24.0-30.0 [facility] Comment on above: Performed By: #### V BG ####[address] [place] [address] Lab Director: Murtaza Arceo MD Negative Base Excess 2.6 mmol/L High 0.0-2.0 [facility] Comment on above: Performed By: #### V BG ####[address] , [place] 3907783 Lab Director: Murtaza Arceo MD O2 Device/Flow/% ROOM AIR [facility] Comment on above: Performed By: #### V BG ####[address] [place], [place] 4399483 Lab Director: Murtaza Arceo MD Oxygen saturation in Blood 69.7 % Normal 60.0-85.0 [facility] Comment on above: Performed By: #### V BG ####[address] , [place] 4947683 lab Director: Murtaza Arceo MD pCO2 38.2 mm Hg Low 39-55 [facility] Comment on above: Performed By: #### V BG ####[address] [place] [address] lab Director: Murtaza Arceo MD Pco2 Adj'd for Temp. 38.2 mmHg Low 39.0-55.0 [facility] Comment on above: Performed By: #### V BG ####[address] [place] [address] lab Director: Murtaza Arceo MD pH (Bld) 7.380 [pH] Normal 7.32-7.42 [facility] Comment on above: Performed By: #### V BG ####[address] , [place] 8478683 lab Director: Murtaza Arceo MD pH Adjst'd for Temp. 7.380 Normal 7.320-7.420 [facility] Comment on above: Performed By: #### V BG ####[address] , [place] 9100983 Lab Director: Murtaza Arceo MD pO2 37.0 mm Hg Normal 30.0-50.0 [facility] Comment on above: Performed By: #### V BG ####[address] [place] [address] Lab Director: Murtaza Arceo MD pO2 Adj'd for Temp. 37.0 mmHg Normal 30.0-50.0 [facility] Comment on above: Performed By: #### V BG ####[facility] [place] [address] lab Director: Murtaza Arceo MD XR CHEST PORTABLEon 04-06-20 XR CHEST PORTABLE Normal [facility] ED Note-Physicianon 03-31-20 ED Note-Physician Chief Complaint pt c/o lower [...] _ ? NEXUS C-spine Criteria: _ ? [place] Ankle Rule: _ ? [place] Knee Rule: _ ? [place] Criteria for [...] Ovarian cyst Procedure/Surgical History Dilation and curettage [place] Tooth extraction (2009) Oopherectomy (06/2010) Tonsillectomy and [...] capsule, 40 mg= 1 caps, Oral, BID oxyCODONE-acetaminophe n 5 mg-325 mg oral tablet, 18 EA, 0 Refill(s), take 1 tablet by mouth every 4 hours if needed fo (more content not included)... Normal [facility] Neurosurgery Office/Clinic N oteon 03-19-2024 Neurosurgery Office/Clinic Note Chief Complaint Patient is being seen for back consult. History of Present Illness This is a pleasant 28 year old female seen in referral at the request of [facility] ED for lumbar disc protrusion. She [...] since 2019, current exacerbation x 1 week, 04/01 in severity Legs: Numbness B/L buttocks, hamstrings, medial thighs, perineal area, improving. Subjective weakness Care team: Dr. Golden, PCP Dr. 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 Tobacco use 1/2 PPD, social alcohol, [...] Frequency: Yes Urgency: Yes Urinary Incontinence: Yes Hematologic/Lymphatic Musculoskeletal Back pain: Yes Other Musculoskeletal: Yes [...] low back (more content not included)... Normal [facility] Provider Letteron 03-19-2024 Provider Letter Yossi Golden MD [address] [place] [address] Re: Gael Ruby Date of Visit: 03/19/2024 Dear Yossi Golden MD, Thank you for allowing me to contribute to the care of your patient: Gael Ruby Attached is my office note where you will find my assessment and recommendations from our encounter. My office?s contact information: [facility] [address], [phone] Let me know if you have any questions or concerns. Sincerely, LUZ Muhammad Providers: The following document(s) were included in the letter: March 19, 2024 12:38:32 EDT - (03/19/2024) Neurosurgery Office Visit Note Normal [facility] ED Clinical Summaryon 2023 ED Clinical Summary [address] [place] [place] [address] ED Clinical Summary Person Information Name: Gael Ruby/Anisha Age: 28 Years : 1995 Sex: Female PCP: Yossi Golden MD Marital Status: Phone: Race: White Ethnicity: Not or Language: Somali Visit Reason: Back pain; Back Pain Acuity: 3 Enc Type: Emergency Med Service: Emergency Medicine Arrival: 03/15/2024 02:14:36 Discharge: 03/15/2024 05:06:00 LOS: 000 02:52 Checkin: 03/15/2024 02:14:36 Checkout: 03/15/2024 05:06:00 Dispo Type: Home or Self Care Address: [address] [place] [phone] Provider Notes: Diagnosis: 1:Lumbar back pain with [...] Final Med List: New Medications [id number], [address] [place], [place] [id number], [phone] oxyCODONE-acetaminophe n (Percocet 5 mg-325 mg oral tablet) 1 Tabs Oral (given by mouth) every 4 hours as needed as needed for pain for 3 Days. Refills: 0. Last Dose: ___ Medications That Were Updated - Follow Current Instructions [id number], [address] [place], [place] [id number], [phone] Current ondansetron (Zofran ODT 4 mg oral tablet, disintegrating) 1 Tabs Oral (given by mouth) every 8 hours as needed as needed for nausea/vomiting. Refills: 0. Last Dose: ___ Current tiZANidine (tiZANidine 4 mg oral tablet) 1 Tabs Oral (given by mouth) every 8 hours as needed muscle spasms. Refills: 0. Last Dose: ___ Other Medications Current ondansetron (Zofran ODT 4 mg oral tablet, disintegrating) 1 Tabs Oral (given by mouth) 3 times a day as needed as needed for nausea/vomiting for 3 Days. Refills: 0. Last Dose: ___ Current tiZANidine (tiZANidine 4 mg oral tablet) 1 Tabs Oral (given by mouth) 3 times a day as needed muscle spasms. Last Dose: ___ Medications that have not changed Other Medications albuterol (albuterol 90 mcg/inh inhalation aerosol) 2 Puffs Inhale (breathe in) every 6 hours as needed as needed for wheezing. Last Dose: ___ dulaglutide (Trulicity Pen 1.5 mg/0.5 mL subcutaneous solution) 0.5 Milliliter Subcutaneous (under the skin) Every Saturday. Last Dose: ___ glipiZIDE (glipiZIDE 10 mg oral tablet) 2 Tabs Oral (given by mouth) 2 times a day. Last Dose: ___ hydrOXYzine (hydrOXYzine hydrochloride 25 mg oral tablet) 1 Tabs Oral (given by mouth) 3 times a day as needed as needed for anxiety. Last Dose: ___ hyoscyamine (hyoscyamine 0.125 mg sublingual tablet) 1 Tabs Sublingual (dissolve under the tongue) every 4 hours as needed cramping. Last Dose: ___ metoclopramide (metoclopramide 10 mg oral tablet) 1 Tabs Oral (given by mouth) 4 times a day as needed nausea/vomiting. Last Dose: ___ omeprazole (omeprazole 40 mg oral delayed release capsule) 1 Capsules Oral (given by mouth) 2 times a day. Last Dose: ___ sertraline (Zoloft 25 mg oral tablet) 1 Tabs Oral (given by mouth) once a day (at bedtime). Last Dose: ___ [id number], [address] [place], [place] [id number], [phone] ondansetron (Zofran ODT 4 mg oral tablet, disintegrating) 1 Tabs Oral (given by mouth) every 8 hours as needed as needed for nausea/vomiting. Refills: 0. oxyCODONE-acetaminophe n (Percocet 5 mg-325 mg oral tablet) 1 [...] oral table (more content not included)... Normal [facility] ED Clinical Summaryon 2023 ED Clinical Summary [facility] [address] [place] [address] ED Clinical Summary Person Information Name: Gael Ruby Josep/[facility] Age: 28 Years : 1995 Sex: Female PCP: Chantel GREWAL, Yossi Paz Marital Status: Phone: Race: White Ethnicity: Not or Language: Somali Visit Reason: Incontinence; Pain in back; back pain Acuity: 3 Enc Type: Emergency Med Service: Emergency Medicine Arrival: 03/10/2024 19:03:42 Discharge: 03/11/2024 00:02:00 LOS: 000 04:59 Checkin: 03/10/2024 19:03:42 Checkout: 03/11/2024 00:02:00 Dispo Type: Home or Self Care Address: [address] [place] [phone] Provider Notes: History of Present Illness This [...] for her back.? She has had MRIs at?[facility] she states. Review of Systems Pertinent positive [...] range between ( 27.2 and 40.8 ) [facility]: 3.6 % -- Normal range between [...] range between ( 36.0 and 46.0 ) [facility] Absolute: 0.3 x10 MCH: 30.6 pg -- [...] GFR: >60 (more content not included)... Normal [facility] .eGFRon 03-10-2024 GFR/1.73 sq M.predicted MDRD (S/P/Bld) [Vol rate/Area] mL/min/{1.73_m2} Normal >=60 [facility] Comment on above: Result Comment: [facility] Laboratories have implemented the eGFR calculation [...] 1 Age = years Performed By: #### U CI #### [place] [id number] CBC w/ Diffon 03-10-2024 Erythrocyte distribution width (RBC) [Ratio] 13.9 % Normal 11.6-14.8 [facility] Comment on above: Performed By: #### C [id number] #### [address] [address] Hematocrit (Bld) [Volume fraction] 40.1 % Normal 36.0-46.0 [facility] Comment on above: Performed By: #### C [id number] #### [address] [address] Hemoglobin (Bld) [Mass/Vol] 13.8 g/dL Normal 12.0-16.0 [facility] Comment on above: Performed By: #### C [id number] #### [address] [address] MCH (RBC) [Entitic mass] 30.6 pg Normal 27.0-35.0 [facility] Comment on above: Performed By: #### C [id number] #### [address] [address] MCHC 34.4 % Normal 31.0-37.0 [facility] Comment on above: Performed By: #### C [id number] #### [address] [address] MCV (RBC) [Entitic vol] 88.9 fL Normal 80.0-100.0 [facility] Comment on above: Performed By: #### C [id number] #### [address] [address] Platelet 284 x10*3/mcL Normal 150-450 [facility] Comment on above: Performed By: #### C [id number] #### [address] [address] Platelet mean volume (Bld) [Entitic vol] 9.0 fL Normal 6.7-10.6 [facility] Comment on above: Performed By: #### C [id number] #### [address] [address] RBC 4.51 x10*6/mcL Normal 3.80-5.20 [facility] Comment on above: Performed By: #### C [id number] #### [address] [address] WBC 9.5 x10*3/mcL Normal 4.5-11.0 [facility] Comment on above: Performed By: #### C [id number] #### [address] [address] CMPon 03-10-2024 Albumin [Mass/Vol] 3.9 g/dL Normal 3.2-4.9 [facility] Comment on above: Performed By: #### C BC #### [address] [address] Albumin/Globulin [Mass ratio] 0.9 {ratio} Low 1.1-2.2 [facility] Comment on above: Performed By: #### C BC #### [facility] [address] [place] [address], [place] [address] Alk Phos 100 IU/L High 32-91 [facility] Comment on above: Performed By: #### C BC #### [facility] [address] [facility] [place] [address] ALT [Catalytic activity/Vol] 68 U/L High 14-54 [facility] Comment on above: Performed By: #### C BC #### [address] [place] [address] Anion gap [Moles/Vol] 13 mmol/L High 4-12 [facility] Comment on above: Performed By: #### C BC #### [address] [place] [address] AST [Catalytic activity/Vol] 82 U/L High 15-41 [facility] Comment on above: Performed By: #### C BC #### [address] [place] [address] Bili Total 0.5 mg/dL Normal 0.3-1.2 [facility] Comment on above: Performed By: #### C BC #### [address] [place] [address] Calcium [Mass/Vol] 9.2 mg/dL Normal 8.5-10.3 [facility] Comment on above: Performed By: #### C BC #### [address] [place] [address] Chloride [Moles/Vol] 97 mmol/L Low 98-110 [facility] Comment on above: Performed By: #### C BC #### [address] [place] [address] CO2 [Moles/Vol] 23 mmol/L Normal 22-32 [facility] Comment on above: Performed By: #### C BC #### [address] [place] [address] Creatinine [Mass/Vol] 0.69 mg/dL Normal 0.44-1.03 [facility] Comment on above: Performed By: #### C BC #### [address] [address] Glucose [Mass/Vol] 353 mg/dL High 70-99 [facility] Comment on above: Performed By: #### C BC #### [address] [address] Potassium [Moles/Vol] 4.3 mmol/L Normal 3.4-4.8 [facility] Comment on above: Performed By: #### C BC #### [address] [address] Protein [Mass/Vol] 8.1 g/dL Normal 6.5-8.1 [facility] Comment on above: Performed By: #### C BC #### [address] [address] Sodium [Moles/Vol] 133 mmol/L Normal 133-142 [facility] Comment on above: Performed By: #### C BC #### [address] [address] Urea nitrogen [Mass/Vol] 10 mg/dL Normal 8-26 [facility] Comment on above: Performed By: #### C BC #### [address] [address] Urea nitrogen/Creatinine [Mass ratio] 14.5 mg/mg Normal 10.0-20.0 [facility] Comment on above: Performed By: #### C BC #### [address] [address] CRPon 03-10-2024 CRP 3.28 mg/dL High 0.00-0.75 [facility] Comment on above: Result Comment: CRP measurement is useful for assessment of non-specific INFLAMMATORY RESPONSE to infection or injury AND is a sensitive MARKER of ACUTE INFLAMMATION including CARDIAC RISK ASSESSMENT. CARDIAC patients with elevated CRP are POTENTIALLY at a HIGHER RISK OF FUTURE CARDIAC EVENTS. Performed By: #### U CI #### [address] [address] Diff Autoon 03-10-2024 Baso Absolute 0.2 x10*3/mcL Normal 0.0-0.2 [facility] Comment on above: Performed By: #### C [id number] #### [address] [address] Basophils/100 WBC (Bld) 2.0 % High 0.0-1.5 [facility] Comment on above: Performed By: #### C [id number] #### [address] [address] Eos Absolute 0.1 x10*3/mcL Normal 0.0-0.4 [facility] Comment on above: Performed By: #### C [id number] #### [address] [address] Eosinophils/100 WBC (Bld) 1.2 % Normal 0.0-5.4 [facility] Comment on above: Performed By: #### C [id number] #### [address] [address] Lymph Absolute 3.8 x10*3/mcL Normal 1.0-4.8 [facility] Comment on above: Performed By: #### C [id number] #### [address] [address] Lymphocytes/100 WBC (Bld) 40.0 % Normal 27.2-40.8 [facility] Comment on above: Performed By: #### C [id number] #### [address] [address] [place] Absolute 0.3 x10*3/mcL Normal 0.1-1.1 [facility] Comment on above: Performed By: #### C [id number] #### [address] [address] Monocytes/100 WBC (Bld) 3.6 % Low 3.7-11.9 [facility] Comment on above: Performed By: #### C [id number] #### [facility] [address] [place] [address] Neutro Absolute 5.0 x10*3/mcL Normal 1.8-7.7 [facility] Comment on above: Performed By: #### C [id number] #### [facility] [address] [place] [address] Neutro Auto 53.2 % Normal 47.2-70.8 [facility] Comment on above: Performed By: #### C [id number] #### [facility] [address] [place] [address] ED Note-Physicianon 03-10-20 ED Note-Physician Chief Complaint [...] her back. She has had MRIs at [facility] she states. Review of Systems Pertinent positive [...] from someone other than the patient: Reviewed [employer] EMR to see if recent visits or hospitalizations. Review and summarized past [facility] records if pertinent [facility]: Independent review of records: Data Interpretation: My [...] and inves (more content not included)... Normal [facility] MRI Spine Lumbar w/o Contras ton 03-10-2024 MRI Spine Lumbar w/o Contrast INDICATION: 28 years old; Female . Symptom/Location/Durat ion: Chronic low back pain.), Rule out cauda [...] body of this report. Final Dictated by: Yajaira Baugh MD Dictated DT/TM: 03/10/2024 10:35 pm Signed by: Yajaira Baugh MD Signed (Electronic Signature): 03/10/2024 10:40 pm (If Report Is Signed, Electronically Signed in Other Vendor System) Normal [facility] Surgery Office/Clinic Noteon 02-26-2024 Surgery Office/Clinic Note [...] the condition worsens within next week. Ordered: sulfamethoxazole-trime thoprim, 1 tabs, Oral, BID, X 10 days, # 20 tabs, 0 Refill(s), 02/22/24 9:35:00 EDT, Pharmacy: [facility] #[id number] [1] Review of Systems A complete 12 [...] from the area. She stated understanding. Ordered: sulfamethoxazole-trime thoprim, 1 tabs, Oral, BID, X 10 days, # 20 tabs, 0 Refill(s), 03/07/24 14:07:00 EDT, Pharmacy: [facility] #[id number] -- Portions of this chart may have [...] reviewed the patient?s medication list for medication interactions/contraind ications and/or for upcoming procedures: [yes or no] [...] Ovarian cyst Procedure/Surgical History Dilation and curettage [place] Tooth extraction (2009) Oopherectomy (06/2010) Tonsillectomy and [...] PRN h (more content not included)... Normal [facility] Surgery Office/Clinic Noteon 02-12-2024 Surgery Office/Clinic Note [...] the condition worsens within next week. Ordered: sulfamethoxazole-trime thoprim, 1 tabs, Oral, BID, X 10 days, # 20 tabs, 0 Refill(s), 02/22/24 9:35:00 EDT, Pharmacy: [facility] #[id number] Medical Decision Making Chronic conditions NOT treated during this visit that affected my overall medical decision making: [] Treatment plans discussed but not opted for at this time: [] Prescribed medication that requires intensive monitoring for toxicity: [] I have reviewed the patient?s medication list for medication interactions/contraind ications and/or for upcoming procedures: [yes or no] [...] Ovarian cyst Procedure/Surgical History Dilation and curettage [place] Tooth extraction (2009) Oopherectomy (06/2010) Tonsillectomy and [...] (Rash) Pyr (more content not included)... Normal [facility] C Woundon 02-10-2024 C Wound -- - Final Light Growth of Normal skin [place] isolated with . Heavy Growth of Staphylococcus lugdunensis isolated ORGANISM Stalug --- SUSCEPTIBILITY -- ORGANISM ID: 1 ANTIBIOTIC INTERPRETATION RENATO STATUS POS Staphylococcus lugdunensis Clindamycin R >=4 V Daptomycin S 0.25 V Doxycycline S <=0.5 V Erythromycin R >=8 V Linezolid S 1 V Levofloxacin S 1 V Oxacillin S 1 V Tetracycline S <=1 V Trimethoprim/Sulfa S <=10 V Vancomycin S <=0.5 V Normal [facility] Comment on above: Performed By: #### C D:[id number] #### [place] [address] ED Note-Nursingon 02-10-2024 ED Note-Nursing wound culture result s reviewed by Dr. Mondragon/ no further orders at this time Electronically signed by Adela Yoder 02/10/24 07:50 EDT Normal [facility] ED Clinical Summaryon 2023 ED Clinical Summary [address] [address] ED Clinical Summary Person Information Name: Gael Ruby/New_Terence Age: 28 Years : 1995 Sex: Female PCP: Marital Status: Phone: Race: White Ethnicity: Not or Language: Somali Visit Reason: Abscess; Abscess Acuity: 4 Enc Type: Emergency Med Service: Emergency Medicine Arrival: 02/07/2024 18:20:02 Discharge: 02/07/2024 19:40:00 LOS: 000 01:20 Checkin: 02/07/2024 18:20:02 Checkout: 02/07/2024 19:40:00 Dispo Type: Home or Self Care Address: [address] [place] [phone] Provider Notes: Diagnosis: 1:Abscess of abdominal wall [...] Final Med List: New Medications [facility] #[id number], [address] [place], [place] [id number], [phone] doxycycline (doxycycline hyclate 100 mg oral capsule) 1 Capsules Oral (given by mouth) 2 times a day for 10 Days. Refills: 0. Last Dose: ___ Medications that have not changed Other Medications albuterol (albuterol 90 mcg/inh inhalation aerosol) 2 Puffs Inhale (breathe in) every 6 hours as needed as needed for wheezing. Last Dose: ___ dulaglutide (Trulicity Pen 1.5 mg/0.5 mL subcutaneous solution) 0.5 Milliliter Subcutaneous (under the skin) Every Saturday. Last Dose: ___ famotidine (Pepcid 20 mg oral tablet) 1 Tabs Oral (given by mouth) 2 times a day for 14 Days. Refills: 0. Last Dose: ___ glipiZIDE (glipiZIDE 10 mg oral tablet) 2 Tabs Oral (given by mouth) 2 times a day. Last Dose: ___ hydrOXYzine (hydrOXYzine hydrochloride 25 mg oral tablet) 1 Tabs Oral (given by mouth) 3 times a day as needed as needed for anxiety. Last Dose: ___ hyoscyamine (hyoscyamine 0.125 mg sublingual tablet) 1 Tabs Sublingual (dissolve under the tongue) every 4 hours as needed cramping. Last Dose: ___ metoclopramide (metoclopramide 10 mg oral tablet) 1 Tabs Oral (given by mouth) 4 times a day as needed nausea/vomiting. Last Dose: ___ omeprazole (omeprazole 40 mg oral delayed release capsule) 1 Capsules Oral (given by mouth) 2 times a day. Last Dose: ___ ondansetron (Zofran ODT 4 mg oral tablet, disintegrating) 1 Tabs Oral (given by mouth) 3 times a day as needed as needed for nausea/vomiting for 3 Days. Refills: 0. Last Dose: ___ sertraline (Zoloft 25 mg oral tablet) 1 Tabs Oral (given by mouth) once a day (at bedtime). Last Dose: ___ tiZANidine (tiZANidine 4 mg oral tablet) 1 Tabs Oral (given by mouth) 3 times a day as needed muscle spasms. Last Dose: ___ [facility] #[id number], [address] [place], [place] [id number], [phone] doxycycline (doxycycline hyclate 100 mg oral capsule) [...] tiZANidine (tiZANi (more content not included)... Normal [facility] ED Note-Physicianon 02-07-20 ED Note-Physician Chief Complaint [...] caps, 0 Refill(s), 02/17/24 19:12:00 EDT, Pharmacy: [facility] #[id number] doxycycline, 100 mg, Oral, Tab, Once, First Dose: 02/07/24 19:11:00 EDT, Stop Date: 02/07/24 19:11:00 EDT, STAT, Dispense From Location: [facility], Skin and Soft Tissue, 02/07/24 19:11:00 [...] mg sublingual (more content not included)... Normal [facility] Basic Metabolic Panelon 05 Anion gap [Moles/Vol] 14 mmol/L 9 - 17 mmol/L [facility] Calcium [Mass/Vol] 9.3 mg/dL 8.6 - 10. 4 mg/dL [facility] Chloride [Moles/Vol] 98 mmol/L 98 - 10 7 mmol/L [facility] CO2 [Moles/Vol] 23 mmol/L 20 - 31 mmol/L [facility] Creatinine [Mass/Vol] 0.6 mg/dL 0.5 - 0.9 mg/dL [facility] Est, Glom Filt Rate - [facility] Comment on above: These results are not [...] 360 mg/dL High 70 - 99 mg/dL [facility] Interpretation and review of laboratory results Abnormal [facility] Potassium [Moles/Vol] 4.2 mmol/L 3.7 - 5.3 mmol/L [facility] Sodium [Moles/Vol] 135 mmol/L 135 - 144 mmol/L [facility] Urea nitrogen [Mass/Vol] 10 mg/dL 6 - 20 mg/dL [facility] Urea nitrogen/Creatinine [Mass ratio] 17 mg/mg 9 - 20 [facility] CBC with Auto Differentialon 01-30-2024 Basophils (Bld) [#/Vol] 0.05 10*3/uL [facility] Basophils/100 WBC (Bld) 1 % 0 - 2 % [facility] Eosinophils (Bld) [#/Vol] 0.09 10*3/uL [facility] Eosinophils/100 WBC (Bld) 1 % 1 - 4 % [facility] Erythrocyte distribution width (RBC) [Ratio] 12.9 % 11.8 - 14.4 % [facility] Hematocrit (Bld) [Volume fraction] 44.1 % 36.3 - 47.1 % [facility] Hemoglobin (Bld) [Mass/Vol] 15.1 g/dL 11.9 - 15.1 g/dL [facility] Immature granulocytes (Bld) [#/Vol] 0.05 10*3/uL [facility] Immature granulocytes/100 WBC (Bld) 1 % High 0 [facility] Interpretation and review of laboratory results Abnormal [facility] Lymphocytes/100 WBC (Bld) 34 % 24 - 43 % [facility] Lymphocytes/100 WBC (Bld) 3.43 % [facility] MCH (RBC) [Entitic mass] 30.8 pg 25.2 - 33.5 pg [facility] MCHC (RBC) [Mass/Vol] 34.2 g/dL 28.4 - 34.8 g/dL [facility] MCV (RBC) [Entitic vol] 90.0 fL 82.6 - 102.9 fL [facility] Monocytes/100 WBC (Bld) 4 % 3 - 12 % [facility] Monocytes/100 WBC (Bld) 0.45 % [facility] Neutrophils/100 WBC (Bld) 59 % 36 - 65 % [facility] Nucleated RBC/100 WBC (Bld) [Ratio] 0.0 % 0.0 per 100 WBC [facility] Platelet mean volume (Bld) [Entitic vol] 11.2 fL 8.1 - 13.5 fL [facility] Platelets (Bld) [#/Vol] 326 10*3/uL [facility] RBC (Bld) [#/Vol] 4.90 10*6/uL 3.95 - 5.1 1 m/uL [facility] Segmented neutrophils/100 WBC (Bld) 6.06 % [facility] WBC other (Bld) [#/Vol] 10.[address] [facility] [address] CHEST PULMONARY EMBOLISM W CONTRASTon 01-30-2024 No evidence of pulmonary embolism or acute pulmonary abnormality. [facility] EXAMINATION: CTA OF THE CHEST 01/30/2024 6:41 [...] No acute bone or soft tissue abnormality. [facility] Kimani Conway MD - 01/30/2024 EXAMINATION: [...] of pulmonary embolism or acute pulmonary abnormality. [facility] Radiology Study observation (narrative) [facility] CHEST PULMONARY EMBOLISM W CONTRASTOrdered By: Kimani Conway on 01-30-2024 [facility] Work Phone: Troponinon 01-30-2024 Troponin I.cardiac High sensitivity method [Mass/Vol] ng/L 0 - 14 ng/L [facility] Comment on above: High Sensitivity Tro ponin values cannot be compared with other Troponin methodologies. [facility] BMPon 01-04-2024 Anion gap [Moles/Vol] 12 mmol/L 9 - 17 mmol/L [facility] Calcium [Mass/Vol] 9.5 mg/dL 8.6 - 10. 4 mg/dL [facility] [employer] Chloride [Moles/Vol] 101 mmol/L 98 - 10 7 mmol/L [facility] CO2 [Moles/Vol] 23 mmol/L 20 - 31 mmol/L [facility] Creatinine [Mass/Vol] 0.6 mg/dL 0.5 - 0.9 mg/dL [facility] GFR/1.73 sq M.predicted MDRD (S/P/Bld) [Vol rate/Area] - PINF [facility] Comment on above: These results are [...] 201 mg/dL High 70 - 99 mg/dL [facility] Interpretation and review of laboratory results Abnormal [facility] Potassium [Moles/Vol] 4.0 mmol/L 3.7 - 5.3 mmol/L [facility] Sodium [Moles/Vol] 136 mmol/L 135 - 144 mmol/L [facility] Urea nitrogen [Mass/Vol] 6 mg/dL 6 - 20 mg/dL [facility] Urea nitrogen/Creatinine [Mass ratio] 10 mg/mg 9 - 20 [facility] CBC with Auto Differentialon 01-04-2024 Basophils (Bld) [#/Vol] 0.04 10*3/uL [facility] Basophils/100 WBC (Bld) 0 % 0 - 2 % [facility] Eosinophils (Bld) [#/Vol] 0.07 10*3/uL [facility] Eosinophils/100 WBC (Bld) 1 % 1 - 4 % [facility] Erythrocyte distribution width (RBC) [Ratio] 12.8 % 11.8 - 14.4 % [facility] Hematocrit (Bld) [Volume fraction] 41.9 % 36.3 - 47.1 % [facility] Hemoglobin (Bld) [Mass/Vol] 14.3 g/dL 11.9 - 15.1 g/dL [facility] Immature granulocytes (Bld) [#/Vol] 0.04 10*3/uL [facility] Immature granulocytes/100 WBC (Bld) 0 % 0 [facility] Interpretation and review of laboratory results Abnormal [facility] Lymphocytes/100 WBC (Bld) 28 % 24 - 43 % [facility] Lymphocytes/100 WBC (Bld) 3.31 % [facility] MCH (RBC) [Entitic mass] 30.5 pg 25.2 - 33.5 pg [facility] MCHC (RBC) [Mass/Vol] 34.1 g/dL 28.4 - 34.8 g/dL [facility] MCV (RBC) [Entitic vol] 89.3 fL 82.6 - 102.9 fL [facility] Monocytes/100 WBC (Bld) 5 % 3 - 12 % [facility] Monocytes/100 WBC (Bld) 0.61 % [facility] Neutrophils/100 WBC (Bld) 66 % High 36 - 65 % [facility] Nucleated RBC/100 WBC (Bld) [Ratio] 0.0 % 0.0 per 100 WBC [facility] Platelet mean volume (Bld) [Entitic vol] 10.8 fL 8.1 - 13.5 fL [facility] Platelets (Bld) [#/Vol] 320 10*3/uL [facility] RBC (Bld) [#/Vol] 4.69 10*6/uL 3.95 - 5.1 1 m/uL [facility] Segmented neutrophils/100 WBC (Bld) 7.85 % [facility] WBC other (Bld) [#/Vol] 11.9 High [facility] COVID-19, Rapidon 01-04-2024 SARS-CoV-2 (COVID-19) RdRp gene ABRAHAM+probe Ql (Resp) Not detected Not Detected [facility] Comment on above: Rapid NAAT: The [...] management decisions. Fact sheet for Healthcare Providers: https://www.fda.gov/media/529751/download Fact sheet for Patients: https://www.fda.gov/media/260792/download Methodology: Isothermal Nucleic Acid Amplification Specimen Description .NASOPHARYNGEAL SWAB [facility] Rapid influenza A/B antigens on 01-04-2024 FLUAV Ag Ql (Unsp spec) Negative NEGATIVE [facility] Comment on above: for Influenza A Anti gen FLUBV Ag Ql (Unsp spec) Negative NEGATIVE [facility] Comment on above: for Influenza B Anti gen. [facility] CBC with Auto Differentialon 11-23-2023 Basophils (Bld) [#/Vol] 0.06 10*3/uL [facility] Basophils/100 WBC (Bld) 1 % 0 - 2 % [facility] Eosinophils (Bld) [#/Vol] 0.13 10*3/uL [facility] Eosinophils/100 WBC (Bld) 1 % 1 - 4 % [facility] Erythrocyte distribution width (RBC) [Ratio] 12.5 % 11.8 - 14.4 % [facility] Hematocrit (Bld) [Volume fraction] 45.2 % 36.3 - 47.1 % [facility] Hemoglobin (Bld) [Mass/Vol] 15.2 g/dL High 11.9 - 15.1 g/dL [facility] Immature granulocytes (Bld) [#/Vol] 0.04 10*3/uL [facility] Immature granulocytes/100 WBC (Bld) 0 % 0 [facility] Interpretation and review of laboratory results Abnormal [facility] Lymphocytes/100 WBC (Bld) 37 % 24 - 43 % [facility] Lymphocytes/100 WBC (Bld) 3.97 % High [facility] MCH (RBC) [Entitic mass] 30.2 pg 25.2 - 33.5 pg [facility] MCHC (RBC) [Mass/Vol] 33.6 g/dL 28.4 - 34.8 g/dL [facility] MCV (RBC) [Entitic vol] 89.9 fL 82.6 - 102.9 fL [facility] Monocytes/100 WBC (Bld) 5 % 3 - 12 % [facility] Monocytes/100 WBC (Bld) 0.54 % [facility] Neutrophils/100 WBC (Bld) 56 % 36 - 65 % [facility] Nucleated RBC/100 WBC (Bld) [Ratio] 0.0 % 0.0 per 100 WBC [facility] Platelet mean volume (Bld) [Entitic vol] 10.7 fL 8.1 - 13.5 fL [facility] Platelets (Bld) [#/Vol] 328 10*3/uL [facility] RBC (Bld) [#/Vol] 5.03 10*6/uL 3.95 - 5.1 1 m/uL [facility] Segmented neutrophils/100 WBC (Bld) 6.12 % [facility] WBC other (Bld) [#/Vol] 10.9 [facility] CMPon 11-23-2023 Albumin [Mass/Vol] 4.3 g/dL 3.5 - 5.2 g/dL [facility] Albumin/Globulin [Mass ratio] 1.3 {ratio} 1.0 - 2.5 [facility] ALP [Catalytic activity/Vol] 113 U/L High 35 - 104 U/L [facility] ALT [Catalytic activity/Vol] 69 U/L High 5 - 33 U/L [facility] Anion gap [Moles/Vol] 12 mmol/L 9 - 17 mmol/L [facility] AST [Catalytic activity/Vol] 81 U/L High NINF - 32 U/L [facility] Bilirubin [Mass/Vol] 0.3 mg/dL 0.3 - 1 .2 mg/dL [facility] Calcium [Mass/Vol] 9.5 mg/dL 8.6 - 10. 4 mg/dL [facility] Chloride [Moles/Vol] 98 mmol/L 98 - 10 7 mmol/L [facility] CO2 [Moles/Vol] 24 mmol/L 20 - 31 mmol/L [facility] Creatinine [Mass/Vol] 0.7 mg/dL 0.5 - 0.9 mg/dL [facility] GFR/1.73 sq M.predicted MDRD (S/P/Bld) [Vol rate/Area] - PINF [facility] Comment on above: These results are [...] 175 mg/dL High 70 - 99 mg/dL [facility] Potassium [Moles/Vol] 3.9 mmol/L 3.7 - 5.3 mmol/L [facility] Protein [Mass/Vol] 7.5 g/dL 6.4 - 8.3 g/dL [facility] Sodium [Moles/Vol] 134 mmol/L Low 135 - 144 mmol/L [facility] Urea nitrogen [Mass/Vol] 9 mg/dL 6 - 20 mg/dL [facility] Urea nitrogen/Creatinine [Mass ratio] 13 mg/mg 9 - 20 [facility] Abdomen and Pelvis W cont rast Maurilio 11-23-2023 Hepatomegaly with steatosis. No acute abnormality identified. [facility] EXAMINATION: CT OF THE ABDOMEN AND [...] COMPARISON: 08/01/2023 HISTORY: ORDERING SYSTEM PROVIDED HISTORY: [facility] abd pain TECHNOLOGIST PROVIDED HISTORY: [facility] abd pain Decision Support Exception - unselect if not a suspected or confirmed emergency medical condition->Emergency Medical Condition (MA) FINDINGS: Lower Chest: No acute findings. Organs: Hepatomegaly with steatosis. No inflammatory change identified in the gallbladder fossa. The pancreas, spleen, adrenals and kidneys reveal no acute findings. GI/Bowel: There is no bowel dilatation or wall thickening identified. Normal appendix. Pelvis: No acute findings. Peritoneum/Retroperito neum: No free air or free fluid. The aorta is normal in caliber. The visceral branches are patent. No lymphadenopathy. Bones/Soft Tissues: No abnormality identified. 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 *Unless otherwise specified, incidental findings do not require dedicated imaging follow-up. [facility] Ronaldo Marinelli MD - 11/23/2023 EXAMINATION: CT OF [...] COMPARISON: 08/01/2023 HISTORY: ORDERING SYSTEM PROVIDED HISTORY: [facility] abd pain TECHNOLOGIST PROVIDED HISTORY: [facility] abd pain Decision Support Exception - unselect if not a suspected or confirmed emergency medical condition->Emergency Medical Condition (MA) FINDINGS: Lower Chest: No acute findings. Organs: Hepatomegaly with steatosis. No inflammatory change identified in the gallbladder fossa. The pancreas, spleen, adrenals and kidneys reveal no acute findings. GI/Bowel: There is no bowel dilatation or wall thickening identified. Normal appendix. Pelvis: No acute findings. Peritoneum/Retroperito neum: No free air or free fluid. The aorta is normal in caliber. The visceral branches are patent. No lymphadenopathy. Bones/Soft Tissues: No abnormality identified. 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 *Unless otherwise specified, incidental findings do not require dedicated imaging follow-up. IMPRESSION: Hepatomegaly with steatosis. No acute abnormality identified. [facility] Radiology Study observation (narrative) [facility] CT Abdomen and Pelvis W cont rast IVOrdered By: Ronaldo Marinelli on 11-23-2023 [facility] Work Phone: Lipaseon 11-23-2023 Lipase [Catalytic activity/Vol] 79 U/L High 13 - 60 U/L [facility] No Panel Informationon 11-22 Interpretation and review of laboratory results Abnormal [facility]ITAL[facility] Urinalysis with Microscopico n 11-23-2023 Bacteria LM Ql (Urine sed) TRACE Abnormal None [facility] Bilirubin Ql (U) Negative NEGATIVE [facility] [employer] Clarity (U) Clear Clear [facility] Color (U) Yellow Yellow [facility] Epithelial cells LM.HPF (Urine sed) [#/Area] None [facility] Glucose Test strip (U) [Mass/Vol] Negative NEGATIVE mg/dL [employer] [facility] Hemoglobin Auto test strip Ql (U) Negative NEGATIVE [facility] Interpretation and review of laboratory results Abnormal [facility] Ketones (U) [Mass/Vol] Negative NEGAT SIMA mg/dL [facility] Leukocyte esterase Test strip Ql (U) Negative NEGATIVE [facility] Nitrite Ql (U) Negative NEGATIVE [facility] pH (U) 6.0 [pH] 5.0 - 9.0 [facility] Protein (U) [Mass/Vol] Negative NEGAT [facility] mg/dL [facility] RBC LM.HPF (Urine sed) [#/Area] None [facility] Specific gravity (U) [Rel density] 1.025 High 1.010 - 1.020 [facility] Urobilinogen Qn (U) Normal 0.0 - 1. 0 EU/dL [facility] WBC LM.HPF (Urine sed) [#/Area] None [facility] ED Clinical Summaryon 2023 ED Clinical Summary [address] [address] ED Clinical Summary Person Information Name: Gael Ruby Michelle Mckeon/[facility] Age: 28 Years : 1995 Sex: Female PCP: Marital Status: Phone: Race: White Ethnicity: Not or Language: Somali Visit Reason: Abdominal pain; abd Acuity: 3 Enc Type: Emergency Med Service: Emergency Medicine Arrival: 11/13/2023 18:52:42 Discharge: 11/14/2023 00:52:00 LOS: 000 06:00 Checkin: 11/13/2023 18:52:42 Checkout: 11/14/2023 00:52:00 Dispo Type: Home or Self Care Address: [address] [place] [phone] Provider Notes: History of Present Illness 28-year-old female?history of?diabetes?presenting with?lower abdominal pain which came on acutely?2 [...] intact without nystagmus, clear conjunctiva, non-icteric sclera HENT:?Normocephalic, atraumatic, moist mucus membranes, oropharynx clear without exudates NECK:?Nontender and supple with no nuchal rigidity, no lymphadenopathy, full range of motion PULMONARY:?Clear to auscultation without wheezes, rhonchi, or rales, normal excursion, no accessory muscle use and no stridor CARDIOVASCULAR:?Regula r rate, rhythm, normal S1 and S2. No appreciated murmurs. Strong radial pulses with intact distal perfusion GASTROINTESTINAL:?Soft , tender right lower quadrant, positive McBurney negative Aquino negative Rovsing's negative psoas no guarding, non-distended, no palpable masses, no rebound or guarding GENITOURINARY:?No costovertebral angle tenderness to palpation LYMPHATICS:?No edema in lower extremities, no lymphadenopathy MUSCULOSKELETAL:?Extre mities are nontender to palpation and have no [...] range between ( 27.2 and 40.8 ) [facility] Auto: 5.1 % -- Normal range between [...] range between ( 36.0 and 46.0 ) [facility] Absolute: 0.6 x10 MCH: 30.2 pg -- [...] range be (more content not included)... Normal [facility] .UA Microscp Aon 11-13-2023 UA Mucus Present Normal Absent [facility] Comment on above: Performed By: #### U CI #### [facility] [address] [place] [address] UA RBC Quant 0 /HPF Normal 0-5 [facility] Comment on above: Performed By: #### U CI #### [address] [address] UA Squepi Cells Quant <1 Normal 0-29 [facility] Comment on above: Performed By: #### U CI #### [address] [address] UA WBC Quant 0 /HPF Normal 0-5 [facility] Comment on above: Performed By: #### U CI #### [place] [id number] .eGFRon 11-13-2023 GFR/1.73 sq M.predicted MDRD (S/P/Bld) [Vol rate/Area] mL/min/{1.73_m2} Normal >=60 [facility] Comment on above: Result Comment: [facility] have implemented the eGFR calculation [...] 1 Age = years Performed By: #### C D:[id number] #### [address] [address] Basic Metabolic Profileon Anion gap [Moles/Vol] 14 mmol/L Normal 7-17 [facility] Comment on above: Performed By: #### U CI #### [address] [address] Calcium [Mass/Vol] 9.5 mg/dL Normal 8.5-10.3 [facility] Comment on above: Performed By: #### U CI #### [address] [address] Chloride [Moles/Vol] 104 mmol/L Normal 98-110 [facility] Comment on above: Performed By: #### U CI #### [address] [address] CO2 [Moles/Vol] 22 mmol/L Normal 22-32 [facility] Comment on above: Performed By: #### U CI #### [address] [address] Creatinine [Mass/Vol] 0.84 mg/dL Normal 0.44-1.03 [facility] Comment on above: Performed By: #### U CI #### [address] [address] Glucose [Mass/Vol] 156 mg/dL High 70-99 [facility] Comment on above: Performed By: #### U CI #### [address] [address] Potassium [Moles/Vol] 3.8 mmol/L Normal 3.4-4.8 [facility] Comment on above: Performed By: #### U CI #### [address] [address] Sodium [Moles/Vol] 136 mmol/L Normal 133-142 [facility] Comment on above: Performed By: #### U CI #### [address] [address] Urea nitrogen [Mass/Vol] 17 mg/dL Normal 8-26 [facility] Comment on above: Performed By: #### U CI #### [address] [address] Urea nitrogen/Creatinine [Mass ratio] 20.2 mg/mg High 10.0-20.0 [facility] Comment on above: Performed By: #### U CI #### [address] [address] CBC w/ Diffon 11-13-2023 Erythrocyte distribution width (RBC) [Ratio] 13.5 % Normal 11.6-14.8 [facility] Comment on above: Performed By: #### C BC #### [address] [address] Hematocrit (Bld) [Volume fraction] 42.6 % Normal 36.0-46.0 [facility] Comment on above: Performed By: #### C BC #### [address] [address] Hemoglobin (Bld) [Mass/Vol] 14.7 g/dL Normal 12.0-16.0 [facility] Comment on above: Performed By: #### C BC #### [address] [address] MCH (RBC) [Entitic mass] 30.2 pg Normal 27.0-35.0 [facility] Comment on above: Performed By: #### C BC #### [address] [address] MCHC 34.5 % Normal 31.0-37.0 [facility] Comment on above: Performed By: #### C BC #### [address] [address] MCV (RBC) [Entitic vol] 87.7 fL Normal 80.0-100.0 [facility] Comment on above: Performed By: #### C BC #### [facility] [address] [place] [address] Platelet 289 x10*3/mcL Normal 150-450 [facility] Comment on above: Performed By: #### C BC #### [place] [address] [place] [address] Platelet mean volume (Bld) [Entitic vol] 8.9 fL Normal 6.7-10.6 [facility] Comment on above: Performed By: #### C BC #### [address] [address] RBC 4.86 x10*6/mcL Normal 3.80-5.20 [facility] Comment on above: Performed By: #### C BC #### [address] [address] WBC 11.8 x10*3/mcL High 4.5-11.0 [facility] Comment on above: Performed By: #### C BC #### [address] [address] [address] Abdomen Pelvis w/ IV Cont [facility] 11-13-2023 CT Abdomen Pelvis w/ IV Contrast [...] statistically represents a cyst. Radiation Dose Estimate: CTDI(mGy):0.998688 / / / kVp:120.774842 / mAs:0.431164 / / / DLP(mGy-cm):4.406855Bu dy Part: Abdomen CTDI(mGy):38.326769 / / / kVp:140.470413 / mAs:180.380625 / / / DLP(mGy-cm):2189.27432 0Body Part: Abdomen Final Dictated by: Keaton Richmond MD Dictated DT/TM: 11.13.2023 10:19 pm Signed by: Keaton Richmond MD Signed (Electronic Signature): 11.13.2023 10:26 pm (If Report Is Signed, Electronically Signed in Other Vendor System) Normal [facility] Diff Autoon 11-13-2023 Baso Absolute 0.0 x10*3/mcL Normal 0.0-0.2 [facility] Comment on above: Performed By: #### U CI #### [address] [address] Basophils/100 WBC (Bld) 0.3 % Normal 0.0-1.5 [facility] Comment on above: Performed By: #### U CI #### [address] [address] Eos Absolute 0.2 x10*3/mcL Normal 0.0-0.4 [facility] Comment on above: Performed By: #### U CI #### [address] [address] Eosinophils/100 WBC (Bld) 1.3 % Normal 0.0-5.4 [facility] Comment on above: Performed By: #### U CI #### [address] [address] Lymph Absolute 4.6 x10*3/mcL Normal 1.0-4.8 [facility] Comment on above: Performed By: #### U CI #### [address] [address] Lymphocytes/100 WBC (Bld) 38.8 % Normal 27.2-40.8 [facility] Comment on above: Performed By: #### U CI #### [address] [address] [place] Absolute 0.6 x10*3/mcL Normal 0.1-1.1 [facility] Comment on above: Performed By: #### U CI #### [address] [address] Monocytes/100 WBC (Bld) 5.1 % Normal 3.7-11.9 [facility] Comment on above: Performed By: #### U CI #### [address] [address] Neutro Absolute 6.4 x10*3/mcL Normal 1.8-7.7 [facility] Comment on above: Performed By: #### U CI #### [address] [address] Neutro Auto 54.5 % Normal 47.2-70.8 [facility] Comment on above: Performed By: #### U CI #### [address] [address] ED Note-Physicianon 11-13-19 ED Note-Physician Chief Complaint [...] 11/13/23 22:37:00 EST, STAT, Dispense From Location: Denrova-BUT-OW, Intra-abdominal, 11/13/23 22:37:00 EST famotidine, 20 mg, IV Push, Injection, Once, First Dose: 11/13/23 22:36:00 ES (more content not included)... Normal [facility] Hep Func Panelon 11-13-2023 Albumin [Mass/Vol] 4.2 g/dL Normal 3.2-4.9 [facility] Comment on above: Performed By: #### U CI #### [address] [address] Alk Phos 91 IU/L Normal 32-91 [facility] Comment on above: Performed By: #### U CI #### [address] [address] ALT [Catalytic activity/Vol] 62 U/L High 14-54 [facility] Comment on above: Performed By: #### U CI #### [address] [address] AST [Catalytic activity/Vol] 84 U/L High 15-41 [facility] Comment on above: Performed By: #### U CI #### [address] [address] Bili Direct 0.1 mg/dL Normal 0.1-0.5 [facility] Comment on above: Performed By: #### U CI #### [address] [address] Bili Indirect 0.7 mg/dL Normal 0.0-1.0 [facility] Comment on above: Performed By: #### U CI #### [address] [address] Bili Total 0.8 mg/dL Normal 0.3-1.2 [facility] Comment on above: Performed By: #### U CI #### [address] [address] Protein [Mass/Vol] 8.1 g/dL Normal 6.5-8.1 [facility] Comment on above: Performed By: #### U CI #### [place] [address] Lipaseon 11-13-2023 Lipase Lvl 61 IU/L High 22-51 [facility] Comment on above: Performed By: #### L IP #### [place] [address] UA w Culture if Indon 2023 Color (U) Yellow Normal Yellow [facility] Comment on above: Performed By: #### . Urinalysis Microscopic Auto #### [place] [address] Ketones Ql (U) Negative Normal Negative [facility] Comment on above: Performed By: #### . Urinalysis Microscopic Auto #### [place] [address] UA Blood Negative Normal Negative [facility] Comment on above: Performed By: #### . Urinalysis Microscopic Auto #### [place] [address] UA Clarity Clear Normal Clear [facility] Comment on above: Performed By: #### . Urinalysis Microscopic Auto #### [place] [address] UA Glucose Normal Normal Negative [facility] Comment on above: Performed By: #### . Urinalysis Microscopic Auto #### [place] [address] UA Leukocyte Esterase Negative Normal Negative [facility] Comment on above: Performed By: #### . Urinalysis Microscopic Auto #### [place] [id number] UA Nitrite Negative Normal Negative [facility] Comment on above: Performed By: #### . Urinalysis Microscopic Auto #### [place] [address] UA pH 5.5 Normal 4.5 - 7.8 [facility] Comment on above: Performed By: #### . Urinalysis Microscopic Auto #### [place] [address] UA Protein 30 mg/dL Abnormal Negative [facility] Comment on above: Performed By: #### . Urinalysis Microscopic Auto #### [place] [address] [place] [address] UA Source Clean Catch Normal [facility] Comment on above: Performed By: #### . Urinalysis Microscopic Auto #### [place] [address] [place] [address] UA Spec Grav 1.029 Normal 1.003-1.035 [facility] Comment on above: Performed By: #### . Urinalysis Microscopic Auto #### [place] [address] [place] [address] UA Urobilinogen Normal Normal 0.2 - 1.0 [facility] Comment on above: Performed By: #### . Urinalysis Microscopic Auto #### [place] [address] [place] [address] Urobilinogen (U) [Mass/Vol] Negative Normal Negative [facility] Comment on above: Performed By: #### . Urinalysis Microscopic Auto #### [place] [address] [place] [address] COVID-19, Rapidon 10-14-2023 SARS-CoV-2 (COVID-19) RdRp gene ABRAHAM+probe Ql (Resp) Not detected Not Detected [facility] Comment on above: Rapid NAAT: The [...] management decisions. Fact sheet for Healthcare Providers: https://www.fda.gov/media/571971/download Fact sheet for Patients: https://www.fda.gov/media/792164/download Methodology: Isothermal Nucleic Acid Amplification Specimen Description .NASOPHARYNGEAL SWAB [facility] Rapid influenza A/B antigens on 10-14-2023 FLUAV Ag Ql (Unsp spec) Positive Abnormal NEGATIVE [facility] Comment on above: for Influenza A Anti gen FLUBV Ag Ql (Unsp spec) Negative NEGATIVE [facility] Comment on above: for Influenza B Anti gen. Interpretation and review of laboratory results Abnormal [facility] CBC with Auto Differentialon 03-23-2023 Basophils (Bld) [#/Vol] 0.04 10*3/uL [facility] Basophils/100 WBC (Bld) 0 % 0 - 2 % [facility] Eosinophils (Bld) [#/Vol] 0.12 10*3/uL [facility] Eosinophils/100 WBC (Bld) 1 % 1 - 4 % [facility] Erythrocyte distribution width (RBC) [Ratio] 12.6 % 11.8 - 14.4 % [facility] Hematocrit (Bld) [Volume fraction] 43.9 % 36.3 - 47.1 % [facility] Hemoglobin (Bld) [Mass/Vol] 14.9 g/dL 11.9 - 15.1 g/dL [facility] Immature granulocytes (Bld) [#/Vol] 0.03 10*3/uL [facility] Immature granulocytes/100 WBC (Bld) 0 % 0 [facility] Interpretation and review of laboratory results Abnormal [facility] Lymphocytes/100 WBC (Bld) 37 % 24 - 43 % [facility] Lymphocytes/100 WBC (Bld) 3.77 % High [facility] MCH (RBC) [Entitic mass] 30.3 pg 25.2 - 33.5 pg [facility] MCHC (RBC) [Mass/Vol] 33.9 g/dL 28.4 - 34.8 g/dL [facility] MCV (RBC) [Entitic vol] 89.4 fL 82.6 - 102.9 fL [facility] Monocytes/100 WBC (Bld) 5 % 3 - 12 % [facility] Monocytes/100 WBC (Bld) 0.56 % [facility] Neutrophils/100 WBC (Bld) 57 % 36 - 65 % [facility] Nucleated RBC/100 WBC (Bld) [Ratio] 0.0 % 0.0 per 100 WBC [facility] Platelet mean volume (Bld) [Entitic vol] 10.2 fL 8.1 - 13.5 fL [facility] Platelets (Bld) [#/Vol] 315 10*3/uL [facility] RBC (Bld) [#/Vol] 4.91 10*6/uL 3.95 - 5.1 1 m/uL [facility] Segmented neutrophils/100 WBC (Bld) 5.82 % [facility] WBC other (Bld) [#/Vol] 10.[address] [facility] [address] Head W/O Contraston 03-23 No acute intracrania l abnormality. [facility] EXAMINATION: CT OF THE HEAD WITHOUT [...] not a suspected or confirmed emergency medical condition->Emergency Medical Condition (MA) Is the patient ?->No [...] of the visualized skull or soft tissues. [facility] Ina Sheldon MD - 03/23/2023 EXAMINATION: [...] not a suspected or confirmed emergency medical condition->Emergency Medical Condition (MA) Is the patient ?->No [...] soft tissues. IMPRESSION: No acute intracranial abnormality. [facility] Radiology Study observation (narrative) [facility] CT Head W/O ContrastOrdered By: Ina Sheldon on 03-23-2023 [facility] Work Phone: Comprehensive Metabolic Pane mando 03-23-2023 Albumin [Mass/Vol] 4.5 g/dL 3.5 - 5.2 g/dL [facility] Albumin/Globulin [Mass ratio] 1.6 {ratio} 1.0 - 2.5 [facility] ALP [Catalytic activity/Vol] 94 U/L 35 - 104 U/L [facility] ALT [Catalytic activity/Vol] 58 U/L High 5 - 33 U/L [facility] Anion gap [Moles/Vol] 10 mmol/L 9 - 17 mmol/L [facility] AST [Catalytic activity/Vol] 40 U/L High NINF - 32 U/L [facility] Bilirubin [Mass/Vol] 0.4 mg/dL 0.3 - 1 .2 mg/dL [facility] Calcium [Mass/Vol] 9.7 mg/dL 8.6 - 10. 4 mg/dL [facility] Chloride [Moles/Vol] 104 mmol/L 98 - 10 7 mmol/L [facility] CO2 [Moles/Vol] 25 mmol/L 20 - 31 mmol/L [facility] Creatinine [Mass/Vol] 0.67 mg/dL 0.50 - 0.90 mg/dL [facility] GFR/1.73 sq M.predicted MDRD (S/P/Bld) [Vol rate/Area] - PINF [facility] Comment on above: These results are [...] 101 mg/dL High 70 - 99 mg/dL [facility] Interpretation and review of laboratory results Abnormal [facility] Potassium [Moles/Vol] 3.9 mmol/L 3.7 - 5.3 mmol/L [facility] Protein [Mass/Vol] 7.4 g/dL 6.4 - 8.3 g/dL [facility] Sodium [Moles/Vol] 139 mmol/L 135 - 144 mmol/L [facility] Urea nitrogen [Mass/Vol] 9 mg/dL 6 - 20 mg/dL [facility] Urea nitrogen/Creatinine [Mass ratio] 13 mg/mg 9 - 20 [facility] Troponinon 03-23-2023 Troponin I.cardiac High sensitivity method [Mass/Vol] ng/L 0 - 14 ng/L [facility] Comment on above: High Sensitivity Tro ponin values cannot be compared with other Troponin methodologies. [facility] XR CHEST PORTABLEon 03-23-20 23 No acute abnormality . [facility] EXAMINATION: ONE XRAY VIEW OF THE CHEST 03/23/2023 6:26 pm COMPARISON: None. HISTORY: ORDERING SYSTEM PROVIDED HISTORY: syncope FINDINGS: Heart size is normal. No focal consolidation in the lungs. No pleural effusion or pneumothorax. [facility] Jayda Castano MD - 03/23/2023 EXAMINATION: ONE XRAY VIEW OF THE CHEST 03/23/2023 6:26 pm COMPARISON: None. HISTORY: ORDERING SYSTEM PROVIDED HISTORY: syncope FINDINGS: Heart size is normal. No focal consolidation in the lungs. No pleural effusion or pneumothorax. IMPRESSION: No acute abnormality. [facility] Radiology Study observation (narrative) [facility] XR CHEST PORTABLEOrdered By: Jayda Castano on 03-23-2023 [facility] Work Phone: Beta-Hydroxybutyrateon 02-18 Beta hydroxybutyrate [Mass/Vol] 0.13 mmol/L 0.02 - 0.27 mmol/L [facility] Blood gas, venouson 02-19-20 HCO3 (Bld) [Moles/Vol] 22.1 mmol/L Low 24.0 - 30.0 mmol/L [facility] Interpretation and review of laboratory results Abnormal [facility] Negative Base Excess, Cain 2.6 mmol/L High 0.0 - 2.0 mmol/L [facility] Oxygen saturation in Blood 95.7 % High 60.0 - 85.0 % [facility] pCO2, Cain 38.3 Low [facility] pH, Cain 7.379 7.32 - 7.42 [facility] pO2, Cain 80.4 High [facility] Pt Temp 37.0 [facility] CBC with Auto Differentialon 02-18-2023 Basophils (Bld) [#/Vol] 0.06 10*3/uL [facility] Basophils/100 WBC (Bld) 0 % 0 - 2 % [facility] Eosinophils (Bld) [#/Vol] 0.06 10*3/uL [facility] Eosinophils/100 WBC (Bld) 0 % Low 1 - 4 % [facility] Erythrocyte distribution width (RBC) [Ratio] 12.6 % 11.8 - 14.4 % [facility] Hematocrit (Bld) [Volume fraction] 43.0 % 36.3 - 47.1 % [facility] Hemoglobin (Bld) [Mass/Vol] 14.6 g/dL 11.9 - 15.1 g/dL [facility] Immature granulocytes (Bld) [#/Vol] 0.09 10*3/uL [facility] Immature granulocytes/100 WBC (Bld) 1 % High 0 [facility] Interpretation and review of laboratory results Abnormal [facility] Lymphocytes/100 WBC (Bld) 22 % Low 24 - 43 % [facility] Lymphocytes/100 WBC (Bld) 3.88 % High [facility] MCH (RBC) [Entitic mass] 30.3 pg 25.2 - 33.5 pg [facility] MCHC (RBC) [Mass/Vol] 34.0 g/dL 28.4 - 34.8 g/dL [facility] MCV (RBC) [Entitic vol] 89.2 fL 82.6 - 102.9 fL [facility] Monocytes/100 WBC (Bld) 6 % 3 - 12 % [facility] Monocytes/100 WBC (Bld) 1.03 % [facility] Neutrophils/100 WBC (Bld) 71 % High 36 - 65 % [facility] NRBC Automated 0.0 0.0 per 100 WBC [facility] Platelet mean volume (Bld) [Entitic vol] 10.4 fL 8.1 - 13.5 fL [facility] Platelets (Bld) [#/Vol] 338 10*3/uL [facility] RBC (Bld) [#/Vol] 4.82 10*6/uL 3.95 - 5.1 1 m/uL [facility] Segmented neutrophils/100 WBC (Bld) 12.96 % High [facility] WBC other (Bld) [#/Vol] 18.1 [address] [facility] CT ABDOMEN PELVIS W IV CONTR AST Additional Contrast? Noneon 02-18-2023 1. Few nondilated fluid-filled loops of small and large bowel this likely represents an enteritis. 2. No CT evidence for appendicitis. [facility] EXAMINATION: CT OF THE [...] not a suspected or confirmed emergency medical condition->Emergency Medical Condition (MA) FINDINGS: Lower Chest: The [...] pelvic masses or fluid collections are seen. Peritoneum/Retroperito neum: The abdominal aorta is not aneurysmal. No retroperitoneal or mesenteric lymphadenopathy is seen. Bones/Soft Tissues: No acute bony abnormalities are noted. [facility] Patrick Ceja MD - [...] not a suspected or confirmed emergency medical condition->Emergency Medical Condition (MA) FINDINGS: Lower Chest: The [...] pelvic masses or fluid collections are seen. Peritoneum/Retroperito neum: The abdominal aorta is not aneurysmal. No retroperitoneal or mesenteric lymphadenopathy is seen. Bones/Soft Tissues: No acute bony abnormalities are noted. IMPRESSION: 1. Few nondilated fluid-filled loops of small and large bowel this likely represents an enteritis. 2. No CT evidence for appendicitis. [employer] Work Phone: Radiology Study observation (narrative) [employer] Phone: CT ABDOMEN PELVIS W IV CONTR AST Additional Contrast? NoneOrdered By: Patrick Ceja on 02-18-2023 [employer] Phone: Comprehensive Metabolic Pane mando 02-18-2023 Albumin [Mass/Vol] 4.2 g/dL 3.5 - 5.2 g/dL [facility] Albumin/Globulin [Mass ratio] 1.4 {ratio} 1.0 - 2.5 [employer] ALP [Catalytic activity/Vol] 90 U/L 35 - 104 U/L [employer] [facility] ALT [Catalytic activity/Vol] 35 U/L High 5 - 33 U/L [employer] Anion gap [Moles/Vol] 10 mmol/L 9 - 17 mmol/L [employer] [facility] AST [Catalytic activity/Vol] 25 U/L NINF - 32 U/L [employer] Bilirubin [Mass/Vol] 0.2 mg/dL Low 0.3 - 1 .2 mg/dL [employer] Calcium [Mass/Vol] 9.5 mg/dL 8.6 - 10. 4 mg/dL [employer] [facility] Chloride [Moles/Vol] 104 mmol/L 98 - 10 7 mmol/L [employer] [facility] CO2 [Moles/Vol] 25 mmol/L 20 - 31 mmol/L [employer] [facility] Creatinine [Mass/Vol] 0.76 mg/dL 0.50 - 0.90 mg/dL [facility] [employer] GFR/1.73 sq M.predicted MDRD (S/P/Bld) [Vol rate/Area] - PINF [facility] Comment on above: These results are [...] 256 mg/dL High 70 - 99 mg/dL [facility] Interpretation and review of laboratory results Abnormal [facility] [employer] Potassium [Moles/Vol] 4.4 mmol/L 3.7 - 5.3 mmol/L [facility] [employer] Protein [Mass/Vol] 7.2 g/dL 6.4 - 8.3 g/dL [facility] Sodium [Moles/Vol] 139 mmol/L 135 - 144 mmol/L [facility] Urea nitrogen [Mass/Vol] 14 mg/dL 6 - 20 mg/dL [facility] Urea nitrogen/Creatinine [Mass ratio] 18 mg/mg 9 - 20 [facility] Glucose, Whole Bloodon 02-18 Glucose [Mass/Vol] 203 mg/dL High 74 - 100 mg/dL [facility] Interpretation and review of laboratory results Abnormal [facility] Glucose [Mass/Vol] 335 mg/dL High 74 - 100 mg/dL [facility] Interpretation and review of laboratory results Abnormal [facility] No Panel Informationon 02-18 [facility] POCT glucoseon 02-18-2023 Glucose [Mass/Vol] 203 mg/dL [facility] [facility] [employer] Work Phone: Interpretation and review of laboratory results Normal [facility] [employer] Work Phone: QC OK? y [facility] [employer] Work Phone: [facility] [employer] Work Phone: SPECIMEN REJECTIONon 023 Ordered Test BH,CP [facility] Reason for Rejection Unable to perform testing: Specimen hemolyzed. [facility] Specimen source Nom (Unsp spec) .BLOOD [facility] Urinalysis with Microscopico n 02-18-2023 Bacteria LM Ql (Urine sed) 1+ Abnormal None [facility] Bilirubin Ql (U) Negative NEGATIVE [facility] Clarity (U) Clear Clear [facility] Color (U) Yellow Yellow [facility] Epithelial cells LM.HPF (Urine sed) [#/Area] 0 TO 2 [facility] Glucose Test strip (U) [Mass/Vol] Negative NEGATIVE [facility] Hemoglobin Auto test strip Ql (U) Negative NEGATIVE [facility] Interpretation and review of laboratory results Abnormal [facility] Ketones (U) [Mass/Vol] Negative NEGATIVE [facility] Leukocyte esterase Test strip Ql (U) Negative NEGATIVE [facility] Nitrite Ql (U) Negative NEGATIVE [facility] pH (U) 6.0 [pH] 5.0 - 9.0 [facility] Protein (U) [Mass/Vol] Negative NEGATIVE [facility] RBC LM.HPF (Urine sed) [#/Area] 0 TO 2 [facility] Specific gravity (U) [Rel density] 1.010 1.010 - 1.020 [facility] Urobilinogen Qn (U) Normal Normal [facility] WBC LM.HPF (Urine sed) [#/Area] 2 TO 5 [facility] XR CHEST PORTABLEon 02-19-20 23 No acute abnormality . [facility] EXAMINATION: ONE XRAY VIEW OF THE CHEST 02/18/2023 8:01 pm COMPARISON: 12/24/2022 HISTORY: ORDERING SYSTEM PROVIDED HISTORY: Cough TECHNOLOGIST PROVIDED HISTORY: Cough FINDINGS: No lung infiltrate or consolidation. No pneumothorax or pleural effusion. Heart size is normal. [facility] Je Ascencio MD - 02/18/2023 EXAMINATION: ONE XRAY VIEW OF THE CHEST 02/18/2023 8:01 pm COMPARISON: 12/24/2022 HISTORY: ORDERING SYSTEM PROVIDED HISTORY: Cough TECHNOLOGIST PROVIDED HISTORY: Cough FINDINGS: No lung infiltrate or consolidation. No pneumothorax or pleural effusion. Heart size is normal. IMPRESSION: No acute abnormality. [employer] Work Phone: Radiology Study observation (narrative) [employer] Phone: XR CHEST PORTABLEOrdered By: Je Ascencio on 02-18-2023 [employer] Work Phone: POINT OF CARE GLUCOSEon Glucose [Mass/Vol] 142 mg/dL Critically high 74-106 [facility] Comment on above: Performed By: #### P REG #### [facility] [address] [place] [address] Dr. Jameel Odell Basic Metabolic Panelon Anion gap [Moles/Vol] 14 mmol/L 9 - 17 mmol/L [employer] Calcium [Mass/Vol] 10.2 mg/dL 8.6 - 10. 4 mg/dL [employer] Chloride [Moles/Vol] 104 mmol/L 98 - 10 7 mmol/L [employer] CO2 [Moles/Vol] 22 mmol/L 20 - 31 mmol/L [employer] Creatinine [Mass/Vol] 0.65 mg/dL 0.50 - 0.90 mg/dL [employer] GFR/1.73 sq M.predicted MDRD (S/P/Bld) [Vol rate/Area] - PINF [employer] Comment on above: These results are not [...] 118 mg/dL High 70 - 99 mg/dL [employer] Interpretation and review of laboratory results Abnormal [facility] Potassium [Moles/Vol] 4.1 mmol/L 3.7 - 5.3 mmol/L [facility] Sodium [Moles/Vol] 140 mmol/L 135 - 144 mmol/L [facility] Urea nitrogen [Mass/Vol] 10 mg/dL 6 - 20 mg/dL [facility] Urea nitrogen/Creatinine (Bld) [Mass ratio] 15 9 - 20 [facility] CBC with Auto Differentialon 12-24-2022 Absolute Eos # 0.20 [place] [facility] Absolute Immature Granulocyte 0.06 [facility] Absolute Lymph # 3.82 High [facility] Absolute [place] # 0.46 [facility] RS [facility] Basophils (Bld) [#/Vol] 0.04 10*3/uL [facility] Basophils/100 WBC (Bld) 0 % 0 - 2 % [facility] Eosinophils/100 WBC (Bld) 2 % 1 - 4 % [facility] Hematocrit (Bld) [Volume fraction] 42.8 % 36.3 - 47.1 % [facility] Hemoglobin (Bld) [Mass/Vol] 14.4 g/dL 11.9 - 15.1 g/dL [facility] Immature granulocytes/100 WBC (Bld) 1 % High 0 [facility] Interpretation and review of laboratory results Abnormal [facility] Lymphocytes/100 WBC (Bld) 37 % 24 - 43 % [facility] MCH (RBC) [Entitic mass] 30.2 pg 25.2 - 33.5 pg [facility] MCHC (RBC) [Mass/Vol] 33.6 g/dL 28.4 - 34.8 g/dL [facility] MCV (RBC) [Entitic vol] 89.7 fL 82.6 - 102.9 fL [facility] Monocytes/100 WBC (Bld) 5 % 3 - 12 % [facility] NRBC Automated 0.0 0.0 per 100 WBC [facility] Platelet distribution width (Bld) [Ratio] 12.3 % 11.8 - 14.4 % [facility] Platelet mean volume (Bld) [Entitic vol] 10.5 fL 8.1 - 13.5 fL [facility] Platelets (Bld) [#/Vol] 326 10*3/uL [facility] RBC (Bld) [#/Vol] 4.77 10*6/uL 3.95 - 5.1 1 m/uL [facility] Segmented neutrophils/100 WBC (Bld) 55 % 36 - 65 % [facility] Segs Absolute 5.75 [facility] WBC (Bld) [#/Vol] 10.3 10*3/uL [facility] D-Dimer, Quantitativeon Fibrin D-dimer FEU IA (Bld) [Mass/Vol] 0.44 ug/mL [facility] Comment on above: When combined with [...] more prevalent in patients with distal DVT. [facility] Microscopic Urinalysison Bacteria, UA TRACE Abnormal None [facility] Epithelial Cells UA 0 TO 2 [facility] Interpretation and review of laboratory results Abnormal [facility] Mucus, UA TRACE Abnormal None [facility] RBC clumps Auto (Urine sed) [#/Area] 0 TO 2 [facility] WBC, UA 0 TO 2 [facility] Troponinon 12-24-2022 Troponin I.cardiac DL <= 0.01 ng/mL [Mass/Vol] 6 ng/L 0 - 14 ng/L [facility] Comment on above: High Sensitivity Tro ponin values cannot be compared with other Troponin methodologies. [facility] Urinalysis with Reflex to Cu ltureon 12-24-2022 Bilirubin Urine Negative NEGATIVE [facility] Color, UA Yellow Yellow [facility] Glucose Auto test strip (U) [Mass/Vol] Negative NEGATIVE [facility] Ketones (U) [Mass/Vol] Negative NEGATIVE [facility] Leukocyte esterase Auto test strip Ql (U) Negative NEGATIVE [facility] Nitrite Auto test strip Ql (U) Negative NEGATIVE [facility] Protein (U) [Mass/Vol] 6.0 mg/dL 5.0 - 9.0 [facility] Protein (U) [Mass/Vol] Negative NEGATIVE [facility] Specific [place], UA 1.015 1.010 - 1.020 [facility] Turbidity UA Clear Clear [facility] Urine Hgb Negative NEGATIVE [facility] Urobilinogen, Urine Normal Normal [facility] XR CHEST PORTABLEon 12-25-19 No acute cardiopulmonary findings. [facility] EXAMINATION: ONE XRAY VIEW OF THE CHEST 12/24/2022 3:17 pm COMPARISON: In 1621 HISTORY: ORDERING SYSTEM PROVIDED HISTORY: chest pain, shortness of breath TECHNOLOGIST PROVIDED HISTORY: chest pain, shortness of breath Initial encounter FINDINGS: No focal consolidation, pleural effusion or pneumothorax. The cardiomediastinal silhouette is stable. No overt pulmonary edema. The osseous structures are stable. [facility] Rina Herrera MD - 12/24/2022 EXAMINATION: [...] are stable. IMPRESSION: No acute cardiopulmonary findings. [facility] [employer] Work Phone: Radiology Study observation (narrative) [facility] [employer] Work Phone: XR CHEST PORTABLEOrdered By: Rina Herrera on 12-24-2022 [facility] [employer] Work Phone: Hemoglobin A1Con 11-21-2022 Average glucose Estimated from glycated hemoglobin (Bld) [Mass/Vol] 163 mg/dL [facility] Comment on above: The ADA and AACC rec ommend providing the estimated average glucose result to permit better patient understanding of their HBA1c result. HbA1c (Bld) [Mass fraction] 7.3 % High 4.0 - 6.0 % [facility] Interpretation and review of laboratory results Abnormal [facility] CBC with Auto Differentialon 11-01-2022 Absolute Eos # 0.13 [place] [facility] Absolute Immature Granulocyte 0.04 [facility] Absolute Lymph # 4.23 High [facility] Absolute [place] # 0.66 [facility] Basophils (Bld) [#/Vol] 0.08 10*3/uL [facility] Basophils/100 WBC (Bld) 1 % 0 - 2 % [facility] Eosinophils/100 WBC (Bld) 1 % 1 - 4 % [facility] Hematocrit (Bld) [Volume fraction] 44.7 % 36.3 - 47.1 % [facility] Hemoglobin (Bld) [Mass/Vol] 15.7 g/dL High 11.9 - 15.1 g/dL [facility] Immature granulocytes/100 WBC (Bld) 0 % 0 [facility] Interpretation and review of laboratory results Abnormal [facility] Lymphocytes/100 WBC (Bld) 34 % 24 - 43 % [facility] [employer] MCH (RBC) [Entitic mass] 32.0 pg 25.2 - 33.5 pg [facility] MCHC (RBC) [Mass/Vol] 35.1 g/dL High 28.4 - 34.8 g/dL [facility] MCV (RBC) [Entitic vol] 91.0 fL 82.6 - 102.9 fL [facility] Monocytes/100 WBC (Bld) 5 % 3 - 12 % [facility] NRBC Automated 0.0 0.0 per 100 WBC [facility] Platelet distribution width (Bld) [Ratio] 12.3 % 11.8 - 14.4 % [facility] Platelet mean volume (Bld) [Entitic vol] 10.0 fL 8.1 - 13.5 fL [facility] Platelets (Bld) [#/Vol] 367 10*3/uL [facility] RBC (Bld) [#/Vol] 4.91 10*6/uL 3.95 - 5.1 1 m/uL [facility] Segmented neutrophils/100 WBC (Bld) 59 % 36 - 65 % [facility] Segs Absolute 7.39 [facility] WBC (Bld) [#/Vol] 12.5 10*3/uL High [facility] CMPon 11-01-2022 Albumin [Mass/Vol] 4.4 g/dL 3.5 - 5.2 g/dL [facility] Albumin/Globulin [Mass ratio] 1.2 {ratio} 1.0 - 2.5 [facility] ALP [Catalytic activity/Vol] 94 U/L 35 - 104 U/L [facility] ALT [Catalytic activity/Vol] 33 U/L 5 - 33 U/L [facility] Anion gap [Moles/Vol] 13 mmol/L 9 - 17 mmol/L [facility] AST [Catalytic activity/Vol] 26 U/L NINF - 32 U/L [facility] Bilirubin [Mass/Vol] 0.4 mg/dL 0.3 - 1 .2 mg/dL [facility] Calcium [Mass/Vol] 10.1 mg/dL 8.6 - 10. 4 mg/dL [facility] Chloride [Moles/Vol] 102 mmol/L 98 - 10 7 mmol/L [facility] CO2 [Moles/Vol] 24 mmol/L 20 - 31 mmol/L [facility] Creatinine [Mass/Vol] 0.71 mg/dL 0.50 - 0.90 mg/dL [facility] GFR/1.73 sq M.predicted MDRD (S/P/Bld) [Vol rate/Area] - PINF [facility] Comment on above: These results are [...] 110 mg/dL High 70 - 99 mg/dL [facility] Interpretation and review of laboratory results Abnormal [facility] Potassium [Moles/Vol] 4.0 mmol/L 3.7 - 5.3 mmol/L [facility] Protein [Mass/Vol] 8.0 g/dL 6.4 - 8.3 g/dL [facility] Sodium [Moles/Vol] 139 mmol/L 135 - 144 mmol/L [facility] Urea nitrogen [Mass/Vol] 11 mg/dL 6 - 20 mg/dL [facility] Urea nitrogen/Creatinine (Bld) [Mass ratio] 15 9 - 20 [facility] , Urineon 3 Beta HCG ( test) Ql (U) Negative NEGATIVE [facility] Comment on above: Specimens with hCG l evels near the threshold of the test (25 mIU/mL) may give a negative or indeterminate result. In such cases, another test should be performed with a new specimen in 48-72 hours. If early is suspected clinically in this setting, correlation with quantitative serum b-hCG level is suggested. [employer] has confirmed the use of plasma for this test. This has not been cleared or approved by the U.S. Food and Drug Administration. The FDA has determined that such clearance is not necessary. [facility] Urinalysis with Microscopico n 11-01-2022 Bilirubin Urine Negative NEGATIVE [facility] Color, UA Yellow Yellow [facility] Epithelial Cells UA 0 TO 2 [facility] Glucose Auto test strip (U) [Mass/Vol] Negative NEGATIVE [facility] Interpretation and review of laboratory results Abnormal [facility] Ketones (U) [Mass/Vol] Negative NEGATIVE [facility] Leukocyte esterase Auto test strip Ql (U) Negative NEGATIVE [facility] Nitrite Auto test strip Ql (U) Negative NEGATIVE [facility] Protein (U) [Mass/Vol] 6.0 mg/dL 5.0 - 9.0 [facility] Protein (U) [Mass/Vol] Negative NEGATIVE [facility] RBC clumps Auto (Urine sed) [#/Area] 0 TO 2 [facility] Specific [place], UA 1.020 1.010 - 1.020 [facility] Turbidity UA Clear Clear [facility] Urine Hgb 1+ Abnormal NEGATIVE [facility] Urobilinogen, Urine Normal Normal [facility] S [facility] WBC, UA None [facility] CBC with Auto Differentialon 10-05-2022 Absolute Eos # 0.14 [facility] Absolute Immature Granulocyte 0.05 [facility] Absolute Lymph # 3.00 [facility] Absolute [place] # 0.48 [facility] Basophils (Bld) [#/Vol] 0.05 10*3/uL [facility] Basophils/100 WBC (Bld) 1 % 0 - 2 % [facility] Eosinophils/100 WBC (Bld) 1 % 1 - 4 % [facility] Hematocrit (Bld) [Volume fraction] 45.2 % 36.3 - 47.1 % [facility] Hemoglobin (Bld) [Mass/Vol] 15.8 g/dL High 11.9 - 15.1 g/dL [facility] Immature granulocytes/100 WBC (Bld) 1 % High 0 [facility] Interpretation and review of laboratory results Abnormal [facility] Lymphocytes/100 WBC (Bld) 29 % 24 - 43 % [facility] MCH (RBC) [Entitic mass] 32.0 pg 25.2 - 33.5 pg [facility] MCHC (RBC) [Mass/Vol] 35.0 g/dL High 28.4 - 34.8 g/dL [facility] MCV (RBC) [Entitic vol] 91.7 fL 82.6 - 102.9 fL [facility] Monocytes/100 WBC (Bld) 5 % 3 - 12 % [facility] NRBC Automated 0.0 0.0 per 100 WBC [facility] Platelet distribution width (Bld) [Ratio] 12.3 % 11.8 - 14.4 % [facility] Platelet mean volume (Bld) [Entitic vol] 9.9 fL 8.1 - 13.5 fL [facility] Platelets (Bld) [#/Vol] 337 10*3/uL [facility] RBC (Bld) [#/Vol] 4.93 10*6/uL 3.95 - 5.1 1 m/uL [facility] Segmented neutrophils/100 WBC (Bld) 63 % 36 - 65 % [facility] Segs Absolute 6.52 [facility] WBC (Bld) [#/Vol] 10.2 10*3/uL [facility] CMPon 10-05-2022 Albumin [Mass/Vol] 4.4 g/dL 3.5 - 5.2 g/dL [facility] Albumin/Globulin [Mass ratio] 1.4 {ratio} 1.0 - 2.5 [facility] ALP (Bld) [Catalytic activity/Vol] 97 U/L 35 - 104 U/L [facility] ALT [Catalytic activity/Vol] 46 U/L High 5 - 33 U/L [facility] Anion gap [Moles/Vol] 13 mmol/L 9 - 17 mmol/L [facility] AST [Catalytic activity/Vol] 50 U/L High NINF - 32 U/L [facility] Bilirubin [Mass/Vol] 0.6 mg/dL 0.3 - 1 .2 mg/dL [facility] Calcium [Mass/Vol] 9.8 mg/dL 8.6 - 10. 4 mg/dL [facility] Chloride [Moles/Vol] 101 mmol/L 98 - 10 7 mmol/L [facility] CO2 [Moles/Vol] 25 mmol/L 20 - 31 mmol/L [facility] Creatinine [Mass/Vol] 0.68 mg/dL 0.50 - 0.90 mg/dL [facility] GFR/1.73 sq M.predicted MDRD (S/P/Bld) [Vol rate/Area] - PINF [facility] Comment on above: Effective Jun 25, [...] 174 mg/dL High 70 - 99 mg/dL [facility] Interpretation and review of laboratory results Abnormal [facility] Potassium [Moles/Vol] 4.0 mmol/L 3.7 - 5.3 mmol/L [facility] Protein [Mass/Vol] 7.6 g/dL 6.4 - 8.3 g/dL [facility] Sodium [Moles/Vol] 139 mmol/L 135 - 144 mmol/L [facility] Urea nitrogen (BldV) [Mass/Vol] 7 mg/dL 6 - 20 mg/dL [facility] Urea nitrogen/Creatinine (Bld) [Mass ratio] 10 9 - 20 [facility] Urinalysison 10-05-2022 Bilirubin Urine Negative NEGATIVE [facility] Color, UA Yellow Yellow [facility] Glucose, Ur Negative NEGATIVE [facility] Interpretation and review of laboratory results Abnormal [facility] Ketones Ql (U) Negative NEGATIVE [facility] Leukocyte esterase Test strip Ql (U) Negative NEGATIVE [facility] Nitrite, Urine Negative NEGATIVE [facility] pH, UA 6.0 5.0 - 9.0 [facility] Protein, UA Negative NEGATIVE [facility] Specific [place], UA 1.025 High 1.010 - 1.020 [facility] Turbidity UA Clear Clear [facility] Urine Hgb Negative NEGATIVE [facility] Urobilinogen, Urine Normal Normal [facility] Jessica [facility] Urine Preg (Lab)on 3 Beta HCG ( test) Ql (U) Negative NEGATIVE [facility] Comment on above: Specimens with hCG l evels near the threshold of the test (25 mIU/mL) may give a negative or indeterminate result. In such cases, another test should be performed with a new specimen in 48-72 hours. If early is suspected clinically in this setting, correlation with quantitative serum b-hCG level is suggested. [employer] has confirmed the use of plasma for this test. This has not been cleared or approved by the U.S. Food and Drug Administration. The FDA has determined that such clearance is not necessary. [facility] CBC with Auto Differentialon 09-27-2022 Absolute Eos # 0.18 [place] Absolute Immature Granulocyte 0.04 [facility] Absolute Lymph # 4.02 High [facility] Absolute [place] # 0.58 [facility] Basophils (Bld) [#/Vol] 0.05 10*3/uL [facility] Basophils/100 WBC (Bld) 0 % 0 - 2 % [facility] Eosinophils/100 WBC (Bld) 2 % 1 - 4 % [facility] Hematocrit (Bld) [Volume fraction] 41.9 % 36.3 - 47.1 % [facility] Hemoglobin (Bld) [Mass/Vol] 14.7 g/dL 11.9 - 15.1 g/dL [facility] Immature granulocytes/100 WBC (Bld) 0 % 0 [facility] Interpretation and review of laboratory results Abnormal [facility] Lymphocytes/100 WBC (Bld) 33 % 24 - 43 % [facility] MCH (RBC) [Entitic mass] 31.7 pg 25.2 - 33.5 pg [facility] MCHC (RBC) [Mass/Vol] 35.1 g/dL High 28.4 - 34.8 g/dL [facility] MCV (RBC) [Entitic vol] 90.3 fL 82.6 - 102.9 fL [facility] Monocytes/100 WBC (Bld) 5 % 3 - 12 % [facility] NRBC Automated 0.0 0.0 per 100 WBC [facility] Platelet distribution width (Bld) [Ratio] 12.5 % 11.8 - 14.4 % [facility] Platelet mean volume (Bld) [Entitic vol] 10.2 fL 8.1 - 13.5 fL [facility] Platelets (Bld) [#/Vol] 294 10*3/uL [facility] RBC (Bld) [#/Vol] 4.64 10*6/uL 3.95 - 5.1 1 m/uL [facility] Segmented neutrophils/100 WBC (Bld) 60 % 36 - 65 % [facility] Segs Absolute 7.35 [facility] WBC (Bld) [#/Vol] 12.2 10*3/uL High [facility] S [facility] Comprehensive Metabolic Pane mando 09-27-2022 Albumin [Mass/Vol] 4.3 g/dL 3.5 - 5.2 g/dL [facility] Albumin/Globulin [Mass ratio] 1.5 {ratio} 1.0 - 2.5 [facility] ALP (Bld) [Catalytic activity/Vol] 89 U/L 35 - 104 U/L [facility] ALT [Catalytic activity/Vol] 29 U/L 5 - 33 U/L [facility] Anion gap [Moles/Vol] 11 mmol/L 9 - 17 mmol/L [facility] AST [Catalytic activity/Vol] 28 U/L NINF - 32 U/L [facility] Bilirubin [Mass/Vol] 0.7 mg/dL 0.3 - 1 .2 mg/dL [facility] Calcium [Mass/Vol] 10.2 mg/dL 8.6 - 10. 4 mg/dL [facility] Chloride [Moles/Vol] 103 mmol/L 98 - 10 7 mmol/L [facility] CO2 [Moles/Vol] 23 mmol/L 20 - 31 mmol/L [facility] Creatinine [Mass/Vol] 0.57 mg/dL 0.50 - 0.90 mg/dL [facility] GFR/1.73 sq M.predicted MDRD (S/P/Bld) [Vol rate/Area] - PINF [facility] Comment on above: Effective Jun 25, [...] 151 mg/dL High 70 - 99 mg/dL [facility] Interpretation and review of laboratory results Abnormal [facility] Potassium [Moles/Vol] 3.9 mmol/L 3.7 - 5.3 mmol/L [facility] Protein [Mass/Vol] 7.2 g/dL 6.4 - 8.3 g/dL [facility] Sodium [Moles/Vol] 137 mmol/L 135 - 144 mmol/L [facility] Urea nitrogen (BldV) [Mass/Vol] 9 mg/dL 6 - 20 mg/dL [facility] Urea nitrogen/Creatinine (Bld) [Mass ratio] 16 9 - 20 [facility] Lactic Acidon 09-27-2022 Lactate [Moles/Vol] 1.2 mmol/L 0.5 - 2. 2 mmol/L [facility] Lipaseon 09-27-2022 Lipase [Catalytic activity/Vol] 44 U/L 13 - 60 U/L [facility] No Panel Informationon 09-27 [facility] , Urineon Beta HCG ( test) Ql (U) Negative NEGATIVE [facility] Comment on above: Specimens with hCG l evels near the threshold of the test (25 mIU/mL) may give a negative or indeterminate result. In such cases, another test should be performed with a new specimen in 48-72 hours. If early is suspected clinically in this setting, correlation with quantitative serum b-hCG level is suggested. [employer] has confirmed the use of plasma for this test. This has not been cleared or approved by the [place] Food and Drug Administration. The FDA has determined that such clearance is not necessary. [facility] Urinalysis with Microscopico n 09-27-2022 Bacteria, UA 1+ Abnormal None [facility] Bilirubin Urine Negative NEGATIVE [facility] Color, UA Yellow Yellow [facility] Epithelial Cells UA 0 TO 2 [facility] Glucose, Ur Negative NEGATIVE [facility] Interpretation and review of laboratory results Abnormal [facility] [facility] Ketones Ql (U) Negative NEGATIVE [facility] Leukocyte esterase Test strip Ql (U) Negative NEGATIVE [facility] Mucus, UA 3+ Abnormal None [facility] Nitrite, Urine Negative NEGATIVE [facility] pH, UA 6.0 5.0 - 9.0 [facility] Protein, UA Negative NEGATIVE [facility] RBC, UA 0 TO 2 [facility] Specific [place], UA High 1.010 - 1.020 [facility] Turbidity UA Clear Clear [facility] Urine Hgb Negative NEGATIVE [facility] Urobilinogen, Urine Normal Normal [facility] WBC, UA 0 TO 2 [facility] CBC with Auto Differentialon 07-08-2022 Absolute Eos # 0.12 [facility] Absolute Immature Granulocyte [facility] Absolute Lymph # 3.54 [facility] Absolute [place] # 0.64 [facility] Basophils (Bld) [#/Vol] 0.04 10*3/uL [facility] Basophils/100 WBC (Bld) 0 % 0 - 2 % [facility] Eosinophils/100 WBC (Bld) 1 % 1 - 4 % [facility] Hematocrit (Bld) [Volume fraction] 42.9 % 36.3 - 47.1 % [facility] Hemoglobin (Bld) [Mass/Vol] 15.1 g/dL 11.9 - 15.1 g/dL [facility] Immature granulocytes/100 WBC (Bld) 0 % 0 [facility] Interpretation and review of laboratory results Abnormal [facility] Lymphocytes/100 WBC (Bld) 38 % 24 - 43 % [facility] MCH (RBC) [Entitic mass] 31.4 pg 25.2 - 33.5 pg [facility] MCHC (RBC) [Mass/Vol] 35.2 g/dL High 28.4 - 34.8 g/dL [facility] MCV (RBC) [Entitic vol] 89.2 fL 82.6 - 102.9 fL [facility] Monocytes/100 WBC (Bld) 7 % 3 - 12 % [facility] NRBC Automated 0.0 0.0 per 100 WBC [facility] Platelet distribution width (Bld) [Ratio] 12.6 % 11.8 - 14.4 % [facility] Platelet mean volume (Bld) [Entitic vol] 10.4 fL 8.1 - 13.5 fL [facility] Platelets (Bld) [#/Vol] 309 10*3/uL [facility] RBC (Bld) [#/Vol] 4.81 10*6/uL 3.95 - 5.1 1 m/uL [facility] Segmented neutrophils/100 WBC (Bld) 54 % 36 - 65 % [facility] Segs Absolute 4.86 [facility] WBC (Bld) [#/Vol] 9.2 10*3/uL [facility] CMPon 07-08-2022 Albumin [Mass/Vol] 4.3 g/dL 3.5 - 5.2 g/dL [facility] Albumin/Globulin [Mass ratio] 1.5 {ratio} 1 - 2.5 [facility] ALP (Bld) [Catalytic activity/Vol] 93 U/L 35 - 104 U/L [facility] ALT [Catalytic activity/Vol] 55 U/L High 5 - 33 U/L [facility] Anion gap [Moles/Vol] 10 mmol/L 9 - 17 mmol/L [facility] AST [Catalytic activity/Vol] 53 U/L High NINF - 32 U/L [facility] Bilirubin [Mass/Vol] 0.8 mg/dL 0.3 - 1 .2 mg/dL [facility] Calcium [Mass/Vol] 9.5 mg/dL 8.6 - 10. 4 mg/dL [facility] Chloride [Moles/Vol] 103 mmol/L 98 - 10 7 mmol/L [facility] CO2 [Moles/Vol] 26 mmol/L 20 - 31 mmol/L [facility] Creatinine [Mass/Vol] 0.67 mg/dL 0.5 - 0.9 mg/dL [facility] GFR/1.73 sq M.predicted MDRD (S/P/Bld) [Vol rate/Area] - PINF [facility] Comment on above: Effective Jun 25, [...] 132 mg/dL High 70 - 99 mg/dL [facility] Interpretation and review of laboratory results Abnormal [facility] Potassium [Moles/Vol] 4.0 mmol/L 3.7 - 5.3 mmol/L [facility] Protein [Mass/Vol] 7.2 g/dL 6.4 - 8.3 g/dL [facility] Sodium [Moles/Vol] 139 mmol/L 135 - 144 mmol/L [facility] Urea nitrogen (BldV) [Mass/Vol] 11 mg/dL 6 - 20 mg/dL [facility] Urea nitrogen/Creatinine (Bld) [Mass ratio] 16 9 - [address] [facility] [address] CHEST PULMONARY EMBOLISM W CONTRASTon 07-08-[address] pulmonary angiogram study. No evidence of pulmonary embolism or acute thoracic aortic abnormality. Clear lungs. [facility] EXAMINATION: CTA OF THE CHEST 07/08/2022 [...] not a suspected or confirmed emergency medical condition->Emergency Medical Condition (MA) FINDINGS: Pulmonary Arteries: Pulmonary [...] Abdomen: The visualized upper abdomen is unremarkable. [facility] Jn Penn MD - 07/08/2022 EXAMINATION: CTA OF THE [...] not a suspected or confirmed emergency medical condition->Emergency Medical Condition (MA) FINDINGS: Pulmonary Arteries: Pulmonary [...] or acute thoracic aortic abnormality. Clear lungs. [employer] Work Phone: Radiology Study observation (narrative) [employer] Phone: CT CHEST PULMONARY EMBOLISM W CONTRASTOrdered By: Jn Penn on 07-08-2022 [employer] Work Phone: [employer], Quantitativeon 06-23 [employer], Quant 0.27 [employer] Comment on above: When combined with a [...] more prevalent in patients with distal DVT. [employer] XR CHEST (2 VW)on 07-08-2022 No acute abnormality visualized. [facility] EXAMINATION: TWO XRAY VIEWS OF THE CHEST 07/08/2022 5:27 pm COMPARISON: None. HISTORY: ORDERING SYSTEM PROVIDED HISTORY: cough, SOB TECHNOLOGIST PROVIDED HISTORY: cough, SOB FINDINGS: There is bandlike atelectasis versus scar in the right mid lung. No consolidation or effusion is identified. The heart size is normal. [facility] Onel Roberts MD - 07/08/2022 EXAMINATION: TWO XRAY VIEWS OF THE CHEST 07/08/2022 5:27 pm COMPARISON: None. HISTORY: ORDERING SYSTEM PROVIDED HISTORY: cough, SOB TECHNOLOGIST PROVIDED HISTORY: cough, SOB FINDINGS: There is bandlike atelectasis versus scar in the right mid lung. No consolidation or effusion is identified. The heart size is normal. IMPRESSION: No acute abnormality visualized. [employer] Phone: Radiology Study observation (narrative) [employer] Phone: XR CHEST (2 VW)Ordered By: Aniya Roberts on 07-08-2022 [employer] Phone: CBC AUTO DIFFon 04-23-2022 BASO # 0.1 103/ul Normal 0.0-0.[address] [facility] Comment on above: Performed By: #### P REG #### [facility] [address] [address] [address] Jameel Odell Basophils/100 WBC (Bld) 0.5 % Normal 0.2-2.[address] [facility] Comment on above: Performed By: #### P REG #### [facility] [address] [address] [address] Jameel Odell EO # 0.2 103/ul Normal 0.0-0.[address] [facility] Comment on above: Performed By: #### P REG #### [facility] [address] [address] [address] Jameel Odell Eosinophils/100 WBC (Bld) 1.5 % Normal 0.9-7.[address] [facility] Comment on above: Performed By: #### P REG #### [facility] [address] [place] [address] Dr. Jameel Odell Erythrocyte distribution width (RBC) [Ratio] 13.0 % Normal 11.0-15.[address] [facility] Comment on above: Performed By: #### P REG #### [facility] [address] [place] [address] Dr. Jameel Odell Hematocrit (Bld) [Volume fraction] 43.9 % Normal 36.0-48.[address] [facility] Comment on above: Performed By: #### P REG #### [facility] [address] [place] [address] Dr. Jameel Odell Hemoglobin (Bld) [Mass/Vol] 14.6 g/dL Normal 12.0-16.[address] [facility] Comment on above: Performed By: #### P REG #### [facility] [address] [place] [address] Dr. Jameel Odell IG # 0.03 10e3/ul Normal 0.00-0.[address] [facility] Comment on above: Performed By: #### P REG #### [facility] [address] [place] [address] Dr. Jameel Odell IG % 0.3 % Normal 0.0-0.[address] [facility] Comment on above: Performed By: #### P REG #### [facility] [address] [place] [address] Dr. Jameel Odell LYMPH # 3.7 103/ul Normal 1.2-3.8 [facility] Comment on above: Performed By: #### P REG #### [facility] [address] [place] [address] Dr. Jameel Odell Lymphocytes/100 WBC (Bld) 36.3 % Normal 20.5-60.[address] [facility] Comment on above: Performed By: #### P REG #### [facility] [address] [place] [address] Dr. Jameel Odell MANUAL DIFF REQ NO Normal [facility] Comment on above: Performed By: #### P REG #### [facility] [address] [address] [address] Jameel Odell MCH (RBC) [Entitic mass] 30.2 pg Normal 26.7-34.0 [facility] Comment on above: Performed By: #### P REG #### [facility] [address] [place] [address] Dr. Jameel Odell MCHC (RBC) [Mass/Vol] 33.3 g/dL Normal 29.9-35.2 [facility] Comment on above: Performed By: #### P REG #### [facility] [address] [place] [address] Dr. Jameel Odell MCV (RBC) [Entitic vol] 90.7 fL Normal 81.0-99.[address] [facility] Comment on above: Performed By: #### P REG #### [facility] [address] [place] [address] Dr. Jameel Odell MONO # 0.6 103/ul Normal 0.3-0.8 [facility] Comment on above: Performed By: #### P REG #### [facility] [address] [place] [address] Dr. Jameel Odell Monocytes/100 WBC (Bld) 5.7 % Normal 1.7-12.[address] [facility] Comment on above: Performed By: #### P REG #### [facility] [address] [place] [address] Dr. Jameel Odell NEUT # 5.7 103/ul Normal 1.4-6.5 [facility] Comment on above: Performed By: #### P REG #### [facility] [address] [place] [address] Dr. Jameel Odell Neutrophils/100 WBC (Bld) 55.7 % Normal 43.0-75.0 [facility] Comment on above: Performed By: #### P REG #### [facility] [address] [place] [address] Dr. Jameel Odell Platelet mean volume (Bld) [Entitic vol] 10.4 fL Normal 9.5-13.5 [facility] Comment on above: Performed By: #### P REG #### [facility] [address] [address] [address] Jameel Odell PLT 304 103/ul Normal 150-450 [facility] Comment on above: Performed By: #### P REG #### [facility] [address] [address] [address] Jameel Odell RBC 4.84 106/ul Normal 4.20-5.[address] [facility] Comment on above: Performed By: #### P REG #### [facility] [address] [address] [address] Jameel Odell WBC 10.2 103/ul Normal 4.0-11.[address] [facility] Comment on above: Performed By: #### P REG #### [facility] [address] LSPINE WO CONon 2 CT LSPINE WO CON EXAM: CT LSPINE WO C ON HISTORY: DORSALGIA, UNSPECIFIED COMPARISON: None. TECHNIQUE: CT [...] BRIAN LORA Date: 2022-04-23 02:17 Normal [facility] Covid-19 PCR (CVDTB)on SARS-CoV-2 (COVID-19) RNA ABRAHAM+probe Ql (Unsp spec) Not detected Normal NOT DETECTED [facility] Comment on above: Result Comment: When [...] for this test is supported by the [place] of Health and Human Service's declaration that [...] longer be used). Performed By: #### C VDTB #### [facility] [address] [place] [address] Dr. Jameel Odell PREG HCG QUALon 04-23-2022 , QUAL Negative Normal NEGATIVE [facility] Comment on above: Performed By: #### P REG #### [facility] [address] [address] [address] Jameel Odell PROF 14(COMP METB)on 022 Albumin [Mass/Vol] 3.7 g/dL Normal 3.4-5.0 [facility] Comment on above: Performed By: #### P REG #### [facility] [address] [place] [address] Dr. Jameel Odell Albumin/Globulin [Mass ratio] 1.0 {ratio} Normal [facility] Comment on above: Performed By: #### P REG #### [facility] [address] [place] [address] Dr. Jameel Odell ALP [Catalytic activity/Vol] 74 U/L Normal 46-[address] [facility] Comment on above: Performed By: #### P REG #### [facility] [address] [address] [address] Jameel Odell ALT [Catalytic activity/Vol] 33 U/L Normal 14-[address] [facility] Comment on above: Performed By: #### P REG #### [facility] [address] [place] [address] Dr. Jameel Odell Anion gap [Moles/Vol] 13.9 mmol/L Normal [facility] Comment on above: Performed By: #### P REG #### [facility] [address] [place] [address] Dr. Jameel Odell AST [Catalytic activity/Vol] 21 U/L Normal 15-[address] [facility] Comment on above: Performed By: #### P REG #### [facility] [address] [place] [address] Dr. Jameel Odell Bilirubin [Mass/Vol] 0.4 mg/dL Normal 0.2-1.[address] [facility] Comment on above: Performed By: #### P REG #### [facility] [address] [place] [address] Dr. Jameel Odell Calcium [Mass/Vol] 9.6 mg/dL Normal 8.5-10.1 [facility] Comment on above: Performed By: #### P REG #### [facility] [address] [place] [address] Dr. Jameel Odell Chloride [Moles/Vol] 104 mmol/L Normal 98-[address] [facility] Comment on above: Performed By: #### P REG #### [facility] [address] [place] [address] Dr. Jameel Odell CO2 [Moles/Vol] 23.8 mmol/L Normal 21.0-32.0 [facility] Comment on above: Performed By: #### P REG #### [facility] [address] [place] [address] Dr. Jameel Odell Creatinine [Mass/Vol] 0.73 mg/dL Normal 0.55-1.02 [facility] Comment on above: Performed By: #### P REG #### [facility] [address] [address] [address] Jameel Odell EGFR-AF SRI LANKAN >60 Normal >=60 [facility] Comment on above: Performed By: #### P REG #### [facility] [address] [address] [address] Jameel Odell EGFR-NON AF SRI LANKAN >60 Normal >=[address] [facility] Comment on above: Performed By: #### P REG #### [facility] [address] [address] [address] Jameel Odell Globulin (S) [Mass/Vol] 3.8 g/dL Normal [facility] Comment on above: Performed By: #### P REG #### [facility] [address] [place] [address] Dr. Jameel Odell Glucose [Mass/Vol] 190 mg/dL Critically high 74-106 [facility] Comment on above: Performed By: #### P REG #### [facility] [address] [address] [address] Jameel Odell Potassium [Moles/Vol] 3.7 mmol/L Normal 3.5-5.[address] [facility] Comment on above: Performed By: #### P REG #### [facility] [address] [place] [address] Dr. Jameel Odell Protein [Mass/Vol] 7.5 g/dL Normal 6.4-8.2 [facility] Comment on above: Performed By: #### P REG #### [facility] [address] [address] [address] Jameel Odell Sodium [Moles/Vol] 138 mmol/L Normal 136-145 [facility] Comment on above: Performed By: #### P REG #### [facility] [address] [place] [address] Dr. Jameel Odell Urea nitrogen [Mass/Vol] 9.0 mg/dL Normal 7.0-18.0 [facility] Comment on above: Performed By: #### P REG #### [facility] [address] [place] [address] Dr. Jameel Odell Urea nitrogen/Creatinine [Mass ratio] 12.3 mg/mg Normal [facility] Comment on above: Performed By: #### P REG #### [facility] [address] [place] [address] Dr. Jameel Odell PROTIMEon 04-23-2022 INR Coag (PPP) [Relative time] 0.94 {INR} Normal [facility] Comment on above: Performed By: #### P TT, PT #### [facility] [address] [place] [address] Dr. Jameel Odell INR GUIDELINES SEE BELOW Normal [facility] Comment on above: Result Comment: [place] RED INR: 2.0 - 3.0 CONDITIONS NOT LISTED BELOW 2.5 - 3.5 FOR PROSTHETIC HEART VALVE REPLACEMENT 2.5 - 3.5 RECURRENT THROMBOSIS Performed By: #### P TT, PT #### [facility] [address] [place] [address] Dr. Jameel Odell PT Coag (PPP) [Time] 10.2 s Normal 9.0-11.[address] [facility] Comment on above: Performed By: #### P TT, PT #### [facility] [address] [place] [address] Dr. Jameel Odell PTTon 04-23-2022 aPTT Coag (Bld) [Time] 24.0 s Normal 22.3-36.2 [facility] Comment on above: Performed By: #### P TT, PT #### [facility] [address] [place] [address] Dr. Jameel Odell CBC AUTO DIFFon 03-21-2022 BASO # 0.1 103/ul Normal 0.0-0.[address] [facility] Comment on above: Performed By: #### C BC #### [facility] [address] [place] [address] Dr. Jameel Odell Basophils/100 WBC (Bld) 0.5 % Normal 0.2-2.[address] [facility] Comment on above: Performed By: #### C BC #### [facility] [address] [address] [address] Jameel Odell EO # 0.1 103/ul Normal 0.0-0.[address] [facility] Comment on above: Performed By: #### C BC #### [facility] [address] [place] [address] Dr. Jameel Odell Eosinophils/100 WBC (Bld) 0.7 % Critically low 0.9-7.[address] [facility] Comment on above: Performed By: #### C BC #### [facility] [address] [place] [address] Dr. Jameel Odell Erythrocyte distribution width (RBC) [Ratio] 13.0 % Normal 11.0-15.[address] [facility] Comment on above: Performed By: #### C BC #### [facility] [address] [place] [address] Dr. Jameel Odell Hematocrit (Bld) [Volume fraction] 45.8 % Normal 36.0-48.[address] [facility] Comment on above: Performed By: #### C BC #### [facility] [address] [place] [address] Dr. Jameel Odell Hemoglobin (Bld) [Mass/Vol] 14.8 g/dL Normal 12.0-16.[address] [facility] Comment on above: Performed By: #### C BC #### [facility] [address] [place] [address] Dr. Jameel Odell IG # 0.04 10e3/ul Critically high 0.00-0.03 [facility] Comment on above: Performed By: #### C BC #### [facility] [address] [place] [address] Dr. Jameel Odell IG % 0.3 % Normal 0.0-0.[address] [facility] Comment on above: Performed By: #### C BC #### [facility] [address] [place] [address] Dr. Jameel Odell LYMPH # 3.0 103/ul Normal 1.2-3.[address] [facility] Comment on above: Performed By: #### C BC #### [facility] [address] [place] [address] Dr. Jameel Odell Lymphocytes/100 WBC (Bld) 25.5 % Normal 20.5-60.[address] [facility] Comment on above: Performed By: #### C BC #### [facility] [address] [place] [address] Dr. Jameel Odell MANUAL DIFF REQ NO Normal [facility] Comment on above: Performed By: #### C BC #### [facility] [address] [place] [address] Dr. Jameel Odell MCH (RBC) [Entitic mass] 30.4 pg Normal 26.7-34.[address] [facility] Comment on above: Performed By: #### C BC #### [facility] [address] [place] [address] Dr. Jameel Odell MCHC (RBC) [Mass/Vol] 32.3 g/dL Normal 29.9-35.[address] [facility] Comment on above: Performed By: #### C BC #### [facility] [address] [place] [address] Dr. Jameel Odell MCV (RBC) [Entitic vol] 94.0 fL Normal 81.0-99.[address] [facility] Comment on above: Performed By: #### C BC #### [facility] [address] [place] [address] Dr. Jameel Odell MONO # 0.5 103/ul Normal 0.3-0.8 [facility] Comment on above: Performed By: #### C BC #### [facility] [address] [place] [address] Dr. Jameel Odell Monocytes/100 WBC (Bld) 4.1 % Normal 1.7-12.0 [facility] Comment on above: Performed By: #### C BC #### [facility] [address] [place] [address] Dr. Jameel Odell NEUT # 8.1 103/ul Critically high 1.4-6.5 [facility] Comment on above: Performed By: #### C BC #### [facility] [address] [address] [address] Jameel Odell Neutrophils/100 WBC (Bld) 68.9 % Normal 43.0-75.[address] [facility] Comment on above: Performed By: #### C BC #### [facility] [address] [address] [address] Jameel Odell Platelet mean volume (Bld) [Entitic vol] 11.4 fL Normal 9.5-13.[address] [facility] Comment on above: Performed By: #### C BC #### [facility] [address] [address] [address] Jameel Odell PLT 330 103/ul Normal 150-450 [facility] Comment on above: Performed By: #### C BC #### [facility] [address] [place] [address] Dr. Jameel Odell RBC 4.87 106/ul Normal 4.20-5.[address] [facility] Comment on above: Performed By: #### C BC #### [facility] [address] [place] [address] Dr. Jameel Odell WBC 11.8 103/ul Critically high 4.0-11.0 [facility] Comment on above: Performed By: #### C BC #### [facility] [address] [place] [address] Dr. Jameel Odell GLYCOHEMOGLOBIN A1Con 2021 ADA RECOMMENDATION SEE BELOW Normal [facility] Comment on above: Result Comment: ADA RECOMMENDED LIMIT 4.0 - 6.0 ADA THERAPEUTIC TARGET < 7.0 ACTION SUGGESTED > 7.0 Performed By: #### P REG #### [facility] [address] [address] [address] Jameel Odell Glucose [Mass/Vol] 146 mg/dL Normal [facility] Comment on above: Performed By: #### P REG #### [facility] [address] [place] [address] Dr. Jameel Odell HbA1c (Bld) [Mass fraction] 6.7 % Critically high 4.5-6.[address] [facility] Comment on above: Performed By: #### P REG #### [facility] [address] [address] [address] Jameel Odell LIPID PROFILEon 03-21-2022 CHOL-HDL RATIO NORM SEE BELOW Normal [facility] Comment on above: Result Comment: 3.3 - 4.4 LOW RISK 4.4 - 7.1 AVERAGE RISK 7.1 - 11.0 MODERATE RISK >11.0 HIGH RISK Performed By: #### L IPID, BMP, TSH, LIVER #### [facility] [address] [address] [address] Jameel Odell Cholesterol [Mass/Vol] 141 mg/dL Normal <=200 Th [facility] Comment on above: Performed By: #### L IPID, BMP, TSH, LIVER #### [facility] [address] [address] [address] Jameel Odell Cholesterol in HDL [Mass/Vol] 36 mg/dL Critically low 40-[address] [facility] Comment on above: Performed By: #### L IPID, BMP, TSH, LIVER #### [facility] [address] [address] [address] Jameel Odell Cholesterol in LDL [Mass/Vol] 72.6 mg/dL Normal [facility] Comment on above: Performed By: #### L IPID, BMP, TSH, LIVER #### [facility] [address] [address] [address] Jameel Odell Cholesterol.total/Chol esterol in HDL [Mass ratio] 3.9 {ratio} Normal [facility] [facility] Comment on above: Performed By: #### L IPID, BMP, TSH, LIVER #### [facility] [address] [address] [address] Jameel Odell HDL NORMAL > or = 60 mg/dl - LO W CARDIOVASCULAR RISK <40 mg/dl - HIGH CARDIOVASCULAR RISK Normal [facility] Comment on above: Performed By: #### L IPID, BMP, TSH, LIVER #### [facility] [address] [address] [address] Jameel Odell LDL CALC NORMAL SEE BELOW Normal [facility] Comment on above: Result Comment: <100 mg/dl OPTIMAL 100 - 129 mg/dl NEAR OR ABOVE OPTIMAL 130 - 159 mg/dl BORDERLINE HIGH 160 - 189 mg/dl HIGH >190 mg/dl VERY HIGH Performed By: #### L IPID, BMP, TSH, LIVER #### [facility] [address] [place] [address] Dr. Jameel Odell Triglyceride [Mass/Vol] 162 mg/dL Critically high <=[address] [facility] Comment on above: Performed By: #### L IPID, BMP, TSH, LIVER #### [facility] [address] [place] [address] Dr. Jameel Odell VLDL CALC 32.4 mg/dL Normal [facility] Comment on above: Performed By: #### L IPID, BMP, TSH, LIVER #### [facility] [address] [place] [address] Dr. Jameel Odell LIVER PROFILEon 03-21-2022 Albumin [Mass/Vol] 3.8 g/dL Normal 3.4-5.0 [facility] Comment on above: Performed By: #### L IPID, BMP, TSH, LIVER #### [facility] [address] [place] [address] Dr. Jameel Odell Albumin/Globulin [Mass ratio] 0.9 {ratio} Normal [facility] Comment on above: Performed By: #### L IPID, BMP, TSH, LIVER #### [facility] [address] [place] [address] Dr. Jameel Odell ALP [Catalytic activity/Vol] 70 U/L Normal 46-[address] [facility] Comment on above: Performed By: #### L IPID, BMP, TSH, LIVER #### [facility] [address] [place] [address] Dr. Jameel Odell ALT [Catalytic activity/Vol] 42 U/L Normal 14-[address] [facility] Comment on above: Performed By: #### L IPID, BMP, TSH, LIVER #### [facility] [address] [place] [address] Dr. Jameel Odell AST [Catalytic activity/Vol] 24 U/L Normal 15-[address] [facility] Comment on above: Performed By: #### L IPID, BMP, TSH, LIVER #### [facility] [address] [place] [address] Dr. Jameel Odell BILI, CONJUGATED 0.1 mg/dL Normal 0.0-0.2 [facility] Comment on above: Performed By: #### L IPID, BMP, TSH, LIVER #### [facility] [address] [place] [address] Dr. Jameel Odell Bilirubin [Mass/Vol] 0.4 mg/dL Normal 0.2-1.[address] [facility] Comment on above: Performed By: #### L IPID, BMP, TSH, LIVER #### [facility] [address] [place] [address] Dr. Jameel Odell Globulin (S) [Mass/Vol] 4.1 g/dL Normal [facility] Comment on above: Performed By: #### L IPID, BMP, TSH, LIVER #### [facility] [address] [place] [address] Dr. Jameel Odell Protein [Mass/Vol] 7.9 g/dL Normal 6.4-8.2 [facility] Comment on above: Performed By: #### L IPID, BMP, TSH, LIVER #### [facility] [address] [place] [address] Dr. Jameel Odell PROF CHEM 8 (BAS METB)on Anion gap [Moles/Vol] 9.4 mmol/L Normal [facility] Comment on above: Performed By: #### L IPID, BMP, TSH, LIVER #### [facility] [address] [place] [address] Dr. Jameel Odell Calcium [Mass/Vol] 9.3 mg/dL Normal 8.5-10.1 [facility] Comment on above: Performed By: #### L IPID, BMP, TSH, LIVER #### [facility] [address] [place] [address] Dr. Jameel Odell Chloride [Moles/Vol] 104 mmol/L Normal 98-107 [facility] Comment on above: Performed By: #### L IPID, BMP, TSH, LIVER #### [facility] [address] [address] [address] Jameel Odell CO2 [Moles/Vol] 27.2 mmol/L Normal 21.0-32.0 [facility] Comment on above: Performed By: #### L IPID, BMP, TSH, LIVER #### [facility] [address] [address] [address] Jameel Odell Creatinine [Mass/Vol] 0.80 mg/dL Normal 0.55-1.[address] [facility] Comment on above: Performed By: #### L IPID, BMP, TSH, LIVER #### [facility] [address] [address] [address] Jameel Odell EGFR-AF SRI LANKAN >60 Normal >=60 [facility] Comment on above: Performed By: #### L IPID, BMP, TSH, LIVER #### [facility] [address] [place] [address] Dr. Jameel Odell EGFR-NON AF SRI LANKAN >60 Normal >=[address] [facility] Comment on above: Performed By: #### L IPID, BMP, TSH, LIVER #### [facility] [address] [address] [address] Jameel Odell Glucose [Mass/Vol] 189 mg/dL Critically high 74-106 [facility] Comment on above: Performed By: #### L IPID, BMP, TSH, LIVER #### [facility] [address] [address] [address] Jaemel Odell Potassium [Moles/Vol] 4.6 mmol/L Normal 3.5-5.[address] [facility] Comment on above: Performed By: #### L IPID, BMP, TSH, LIVER #### [facility] [address] [address] [address] Jameel Odell Sodium [Moles/Vol] 136 mmol/L Normal 136-145 [facility] Comment on above: Performed By: #### L IPID, BMP, TSH, LIVER #### [facility] [address] [address] [address] Jameel Odell Urea nitrogen [Mass/Vol] 9.0 mg/dL Normal 7.0-18.[address] [facility] Comment on above: Performed By: #### L IPID, BMP, TSH, LIVER #### [facility] [address] [address] [address] Jameel Odell Urea nitrogen/Creatinine [Mass ratio] 11.2 mg/mg Normal [facility] Comment on above: Performed By: #### L IPID, BMP, TSH, LIVER #### [facility] [address] [address] [address] Jameel Odell TSHon 03-21-2022 TSH 0.862 uIU/mL Normal 0.358-3.740 [facility] Comment on above: Performed By: #### L IPID, BMP, TSH, LIVER #### [facility] [address] [address] [address] Jameel Odell VITAMIN D 25 OHon 03-21-2022 VIT D 25-OH 30.9 ng/mL Normal [facility] Comment on above: Performed By: #### P REG #### [facility] [address] [address] [address] Jameel Odell VIT D RANGES SEE BELOW Normal [facility] Comment on above: Result Comment: <20 ng/mL Vit D deficient 20 - <30 ng/mL Vit D insufficient 30 - 100 ng/mL Vit D sufficient >100 ng/mL Potential Toxicity Performed By: #### P REG #### [facility] [address] [address] [address] Jameel Odell CBC with Auto Differentialon 03-11-2022 Absolute Eos # 0.43 [facility] Absolute Immature Granulocyte 0.11 [facility] Absolute Lymph # 3.53 [facility] Absolute [place] # 0.64 [facility] Basophils (Bld) [#/Vol] 0.21 10*3/uL High [facility] Basophils/100 WBC (Bld) 2 % 0 - 2 % [facility] Eosinophils/100 WBC (Bld) 4 % 1 - 4 % [facility] Hematocrit (Bld) [Volume fraction] 42.0 % 36.3 - 47.1 % [facility] Hemoglobin (Bld) [Mass/Vol] 14.4 g/dL 11.9 - 15.1 g/dL [facility] Immature granulocytes/100 WBC (Bld) 1 % High 0 [facility] Interpretation and review of laboratory results Abnormal [facility] Lymphocytes/100 WBC (Bld) 33 % 24 - 43 % [facility] MCH (RBC) [Entitic mass] 31.0 pg 25.2 - 33.5 pg [facility] MCHC (RBC) [Mass/Vol] 34.3 g/dL 28.4 - 34.8 g/dL [facility] MCV (RBC) [Entitic vol] 90.3 fL 82.6 - 102.9 fL [facility] Monocytes/100 WBC (Bld) 6 % 3 - 12 % [facility] Morphology Kenan (Bld) [Interp] Normal [facility] NRBC Automated 0.0 0.0 per 100 WBC [facility] Platelet distribution width (Bld) [Ratio] 12.6 % 11.8 - 14.4 % [facility] Platelet mean volume (Bld) [Entitic vol] 10.2 fL 8.1 - 13.5 fL [facility] Platelets (Bld) [#/Vol] 316 10*3/uL [facility] Promyelocytes 1 % High 0 [facility] Promyelocytes Absolute 0.11 High 0 k/uL [facility] RBC (Bld) [#/Vol] 4.65 10*6/uL 3.95 - 5.1 1 m/uL [facility] Segmented neutrophils/100 WBC (Bld) 53 % 36 - 65 % [facility] Segs Absolute 5.67 [facility] WBC (Bld) [#/Vol] 10.7 10*3/uL [facility] COVID-19, Rapidon 03-11-2022 SARS-CoV-2 (COVID-19) RNA ABRAHAM+probe Ql (Unsp spec) Not detected Not Detected [facility] Comment on above: Rapid NAAT: The [...] management decisions. Fact sheet for Healthcare Providers: https://www.fda.gov/media/464768/download Fact sheet for Patients: https://www.fda.gov/media/418967/download Methodology: Isothermal Nucleic Acid Amplification Specimen Description .NASOPHARYNGEAL SWAB [facility] CT ABDOMEN PELVIS W IV CONTR AST Additional Contrast? Noneon 03-11-2022 1. No acute abnormality identified. Normal appendix. 2. Hepatomegaly with steatosis. [facility] EXAMINATION: CT OF THE ABDOMEN AND [...] COMPARISON: 08/27/2020 HISTORY: ORDERING SYSTEM PROVIDED HISTORY: [facility] abdominal pain TECHNOLOGIST PROVIDED HISTORY: [facility] abdominal pain Decision Support Exception - unselect if not a suspected or confirmed emergency medical condition->Emergency Medical Condition (MA) FINDINGS: Lower Chest: No acute findings. Organs: Hepatomegaly with findings of steatosis. The gallbladder is not visualized. The pancreas, spleen, adrenals and kidneys reveal no acute findings. GI/Bowel: There is no bowel dilatation or wall thickening identified. Normal appendix. Pelvis: No acute findings. Peritoneum/Retroperito neum: No free air or free fluid. The aorta is normal in caliber. The visceral branches are patent. No lymphadenopathy. Bones/Soft Tissues: No abnormality identified. [facility] Ronaldo Marinelli MD - 03/11/2022 EXAMINATION: CT OF [...] COMPARISON: 08/27/2020 HISTORY: ORDERING SYSTEM PROVIDED HISTORY: [facility] abdominal pain TECHNOLOGIST PROVIDED HISTORY: [facility] abdominal pain Decision Support Exception - unselect if not a suspected or confirmed emergency medical condition->Emergency Medical Condition (MA) FINDINGS: Lower Chest: No acute findings. Organs: Hepatomegaly with findings of steatosis. The gallbladder is not visualized. The pancreas, spleen, adrenals and kidneys reveal no acute findings. GI/Bowel: There is no bowel dilatation or wall thickening identified. Normal appendix. Pelvis: No acute findings. Peritoneum/Retroperito neum: No free air or free fluid. The aorta is normal in caliber. The visceral branches are patent. No lymphadenopathy. Bones/Soft Tissues: No abnormality identified. IMPRESSION: 1. No acute abnormality identified. Normal appendix. 2. Hepatomegaly with steatosis. [employer] Work Phone: Radiology Study observation (narrative) [employer] [facility] Phone: CT ABDOMEN PELVIS W IV CONTR AST Additional Contrast? NoneOrdered By: Ronaldo Marinelli on 03-11-2022 [employer] [facility] Work Phone: Comprehensive Metabolic Pane l w/ Reflex to MGon 03-11-2022 Albumin [Mass/Vol] 4.5 g/dL 3.5 - 5.2 g/dL [employer] Albumin/Globulin [Mass ratio] 1.6 {ratio} [facility] ALP (Bld) [Catalytic activity/Vol] 72 U/L 35 - 104 U/L [employer] [facility] ALT [Catalytic activity/Vol] 45 U/L High 5 - 33 U/L [employer] Anion gap [Moles/Vol] 11 mmol/L 9 - 17 mmol/L [employer] [facility] AST [Catalytic activity/Vol] 27 U/L <32 [facility] Bilirubin [Mass/Vol] 0.41 mg/dL 0.3 - 1 .2 mg/dL [facility] Calcium [Mass/Vol] 9.5 mg/dL 8.6 - 10. 4 mg/dL [facility] Chloride [Moles/Vol] 105 mmol/L 98 - 10 7 mmol/L [facility] CO2 [Moles/Vol] 24 mmol/L 20 - 31 mmol/L [facility] Creatinine [Mass/Vol] 0.6 mg/dL 0.50 - 0.90 mg/dL [facility] Free PSA/Total PSA [Mass fraction] 7.3 g/dL 6.4 - 8.3 g/dL [facility] GFR >60 >60 mL/min [facility] GFR Non- >60 >60 mL/min [facility] Glucose [Mass/Vol] 201 mg/dL High 70 - 99 mg/dL [facility] Interpretation and review of laboratory results Abnormal [facility] Potassium [Moles/Vol] 4.2 mmol/L 3.7 - 5.3 mmol/L [facility] Sodium [Moles/Vol] 140 mmol/L 135 - 144 mmol/L [facility] Urea nitrogen (BldV) [Mass/Vol] 10 mg/dL 6 - 20 mg/dL [facility] Urea nitrogen/Creatinine (Bld) [Mass ratio] 17 [facility] Laboratory - Chemistry and C hemistry - challengeon 03-11-2022 GFR/1.73 sq M.predicted MDRD (S/P/Bld) [Vol rate/Area] [facility] Comment on above: Average GFR for 20-2 9 years old: 116 mL/min/1.73sq m Chronic Kidney Disease: <60 mL/min/1.73sq m Kidney failure: <15 mL/min/1.73sq m eGFR calculated using average adult body mass. Additional eGFR calculator available at: http://www.SigmaFlow.Piqqual/multiple_crcl_2011.htm Stage 1: Some kidney damage normal GFR Stage 2: Mild kidney damage GFR 60-89 Stage 3: Moderate kidney damage GFR 30-59 Stage 4: Severe kidney damage GFR 15-29 Stage 5: Severe kidney damage GFR <15 ESRD - chronic treatment by dialysis or transplant , Urineon 2 Beta HCG ( test) Ql (U) Negative NEGATIVE [facility] Comment on above: Specimens with hCG l evels near the threshold of the test (25 mIU/mL) may give a negative or indeterminate result. In such cases, another test should be performed with a new specimen in 48-72 hours. If early is suspected clinically in this setting, correlation with quantitative serum b-hCG level is suggested. [employer] has confirmed the use of plasma for this test. This has not been cleared or approved by the U.S. Food and Drug Administration. The FDA has determined that such clearance is not necessary. [facility] Urinalysis with Microscopico n 03-11-2022 - [facility] Bilirubin Urine Negative NEGATIVE [facility] Color, UA Yellow Yellow [facility] Epithelial Cells UA 2 TO 5 [facility] Glucose, Ur TRACE Abnormal NEGATIVE [facility] Interpretation and review of laboratory results Abnormal [facility] Ketones Ql (U) Negative NEGATIVE [facility] Leukocyte esterase Test strip Ql (U) Negative NEGATIVE [facility] Nitrite, Urine Negative NEGATIVE [facility] pH, UA 7.0 [facility] Protein, UA Negative NEGATIVE [facility] RBC, UA 0 TO 2 [facility] Specific [place], UA 1.020 [facility] Turbidity UA Clear Clear [facility] Urine Hgb Negative NEGATIVE [facility] Urobilinogen, Urine Normal Normal [facility] WBC, UA 0 TO 2 [facility] XR RADIUS ULNA RIGHT (2 VIEW S)on 01-04-2022 1. No acute fracture or malalignment. [facility] EXAMINATION: TWO XRAY VIEWS OF THE RIGHT FOREARM 01/04/2022 7:39 pm COMPARISON: None. HISTORY: ORDERING SYSTEM PROVIDED HISTORY: trauma TECHNOLOGIST PROVIDED HISTORY: trauma FINDINGS: No acute fracture or malalignment. No significant degenerative changes. Soft tissues unremarkable. [facility] Efra Gomez MD - 01/04/2022 EXAMINATION: TWO XRAY VIEWS OF THE RIGHT FOREARM 01/04/2022 7:39 pm COMPARISON: None. HISTORY: ORDERING SYSTEM PROVIDED HISTORY: trauma TECHNOLOGIST PROVIDED HISTORY: trauma FINDINGS: No acute fracture or malalignment. No significant degenerative changes. Soft tissues unremarkable. IMPRESSION: 1. No acute fracture or malalignment. [employer] Phone: Radiology Study observation (narrative) [employer] Phone: XR RADIUS ULNA RIGHT (2 VIEW S)Ordered By: Efra Gomez on 01-04-2022 [employer] Phone: XR WRIST RIGHT (MIN 3 VIEWS) on 01-04-2022 1. No acute fracture or malalignment. [facility] EXAMINATION: XRAY VIEWS OF THE RIGHT WRIST 01/04/2022 7:39 pm COMPARISON: None. HISTORY: ORDERING SYSTEM PROVIDED HISTORY: trauma TECHNOLOGIST PROVIDED HISTORY: trauma FINDINGS: No acute fracture or malalignment. No significant degenerative changes. Soft tissues unremarkable. [facility] Efra Gomez MD - 01/04/2022 EXAMINATION: XRAY VIEWS OF THE RIGHT WRIST 01/04/2022 7:39 pm COMPARISON: None. HISTORY: ORDERING SYSTEM PROVIDED HISTORY: trauma TECHNOLOGIST PROVIDED HISTORY: trauma FINDINGS: No acute fracture or malalignment. No significant degenerative changes. Soft tissues unremarkable. IMPRESSION: 1. No acute fracture or malalignment. [employer] Phone: [employer] Phone: Radiology Study observation (narrative) [employer] Phone: Glucose, Whole Bloodon 12-05 Glucose [Mass/Vol] 259 mg/dL High 74 - 100 mg/dL [employer] Interpretation and review of laboratory results Abnormal [employer] Glucose [Mass/Vol] 239 mg/dL High 74 - 100 mg/dL [employer] Interpretation and review of laboratory results Abnormal [employer] POCT glucoseOrdered By: Terra Tafoya on 12-05-2021 Glucose [Mass/Vol] 259 mg/dL [facility] Interpretation and review of laboratory results Abnormal [facility] COVID-19, Rapidon 09-06-2021 SARS-CoV-2 (COVID-19) RNA ABRAHAM+probe Ql (Unsp spec) Not detected Not Detected [employer] Comment on above: Rapid NAAT: The specimen [...] management decisions. Fact sheet for Healthcare Providers: https://www.fda.gov/media/715116/download Fact sheet for Patients: https://www.fda.gov/media/164061/download Methodology: Isothermal Nucleic Acid Amplification Specimen Description .NASOPHARYNGEAL SWAB [facility] XR CHEST (2 VW)Ordered By: Jessica Ryan on 06-02-2021 No acute cardiopulmonary disease [employer] Phone: EXAMINATION: TWO XRA Y VIEWS OF THE CHEST 06/02/2021 4:22 pm COMPARISON: 06/13/2020 HISTORY: ORDERING SYSTEM PROVIDED HISTORY: cough TECHNOLOGIST PROVIDED HISTORY: cough FINDINGS: There is suboptimal inspiration. The cardiac size is normal. No acute infiltrates or pleural effusions are seen. Pulmonary vascularity appears normal. . . No acute bony abnormalities. The hilar structures are normal. [employer] Work Phone: [place], pn Incoming Radiant Results From [employer] - 06/02/2021 7:32 PM EDT EXAMINATION: TWO [...] are normal. IMPRESSION: No acute cardiopulmonary disease [employer] Phone: [employer] Phone: FL UGI W AIR CONTRASTOrdered By: Yossi Golden on 05-26-2021 Mild spontaneous gastroesophageal reflux in otherwise unremarkable slightly limited (poor gastric mucosal coating) upper GI fluoroscopic evaluation. [employer] Phone: EXAMINATION: DOUBLE CONTRAST UPPER GI SERIES [...] The duodenal bulb and sweep are normal. [employer] Phone: [place], [facility] Incoming Radiant Results From [employer] - 05/26/2021 12:00 PM EDT EXAMINATION: DOUBLE [...] gastric mucosal coating) upper GI fluoroscopic evaluation. [employer] Phone: [employer] Phone: AmylaseOrdered By: Yossi hector on 05-16-2021 Amylase [Catalytic activity/Vol] 54 U/L 28 - 100 U/L [employer] Phone: Basic Metabolic PanelOrdered By: Yossi Golden on 05-16-2021 Anion gap [Moles/Vol] 15 mmol/L 9 - 17 mmol/L [employer] Phone: Calcium [Mass/Vol] 9.8 mg/dL 8.6 - 10. 4 mg/dL [employer] Phone: Chloride [Moles/Vol] 101 mmol/L 98 - 10 7 mmol/L [employer] Phone: CO2 [Moles/Vol] 19 mmol/L Low 20 - 31 mmol/L [employer] Phone: Creatinine [Mass/Vol] 0.67 mg/dL 0.50 - 0.90 mg/dL [employer] Phone: GFR >60 >60 mL/min [employer] Phone: GFR Non- >60 >60 mL/min [employer] Phone: Glucose [Mass/Vol] 316 mg/dL High 70 - 99 mg/dL [employer] Phone: Potassium [Moles/Vol] 4.3 mmol/L 3.7 - 5.3 mmol/L [employer] Phone: Sodium [Moles/Vol] 135 mmol/L 135 - 144 mmol/L [employer] Phone: Urea nitrogen (BldV) [Mass/Vol] 11 mg/dL 6 - 20 mg/dL [employer] Phone: Urea nitrogen/Creatinine (Bld) [Mass ratio] 16 [employer] Work Phone: CBC Auto DifferentialOrdered By: Yossi Golden on 05-16-2021 Absolute Eos # 0.13 [employer] [facility] Work Phone: Absolute Immature Granulocyte 0.05 [employer] Work Phone: Absolute Lymph # 3.11 [employer] [facility] Work Phone: Absolute [place] # 0.54 [employer] Work Phone: Basophils (Bld) [#/Vol] 0.04 10*3/uL [employer] Phone: Basophils/100 WBC (Bld) 0 % 0 - 2 % [employer] Phone: Differential Type NOT REPORTED [employer] Phone: Eosinophils/100 WBC (Bld) 1 % 1 - 4 % [employer] Phone: Hematocrit (Bld) [Volume fraction] 42.8 % 36.3 - 47.1 % [employer] Phone: Hemoglobin.gastrointes tinal spec 1 Ql (Stl) 14.6 g/dL 11.9 - 15.1 g/dL [employer] Phone: Immature granulocytes/100 WBC (Bld) 1 % High 0 [employer] Phone: Interpretation and review of laboratory results Abnormal [employer] Phone: Lymphocytes/100 WBC (Bld) 32 % 24 - 43 % [employer] Phone: MCH (RBC) [Entitic mass] 30.9 pg 25.2 - 33.5 pg [employer] Phone: MCHC (RBC) [Mass/Vol] 34.1 g/dL 28.4 - 34.8 g/dL [employer] Phone: MCV (RBC) [Entitic vol] 90.5 fL 82.6 - 102.9 fL [employer] Phone: Monocytes/100 WBC (Bld) 6 % 3 - 12 % [employer] Work Phone: NRBC Automated 0.0 0.0 per 100 WBC [employer] Phone: Platelet distribution width (Bld) [Ratio] 12.8 % 11.8 - 14.4 % [employer] Phone: Platelet Estimate NOT REPORTED [employer] Phone: Platelet mean volume (Bld) [Entitic vol] 10.9 fL 8.1 - 13.5 fL [employer] Phone: Platelets (Bld) [#/Vol] 283 10*3/uL [employer] Phone: RBC (Bld) [#/Vol] 4.73 10*6/uL 3.95 - 5.1 1 m/uL [employer] Work Phone: RBC (Bld) [#/Vol] NOT REPORTED [employer] Phone: Segmented neutrophils/100 WBC (Bld) 60 % 36 - 65 % [employer] Work Phone: Segs Absolute 6.00 [employer] Work Phone: WBC (Bld) [#/Vol] 9.9 10*3/uL [employer] Work Phone: WBC (Bld) [#/Vol] NOT REPORTED [employer] Phone: [employer] Work Phone: Hepatic Function PanelOrdere d By: Yossi Golden on 08-24-2021 Albumin [Mass/Vol] 4.4 g/dL 3.5 - 5.2 g/dL [employer] Phone: Albumin/Globulin [Mass ratio] 1.4 {ratio} [employer] Phone: ALP (Bld) [Catalytic activity/Vol] 81 U/L 35 - 104 U/L [employer] Phone: ALT [Catalytic activity/Vol] 32 U/L 5 - 33 U/L [employer] Phone: AST [Catalytic activity/Vol] 32 U/L High <32 [employer] Phone: Bilirubin [Mass/Vol] 0.41 mg/dL 0.3 - 1 .2 mg/dL [employer] Phone: Bilirubin, Indirect CANNOT BE CALCULATED 0.00 - 1.00 mg/dL [employer] Phone: Bilirubin.indirect [Mass/Vol] mg/dL <0.31 mg/dL [employer] Phone: Free PSA/Total PSA [Mass fraction] 7.5 g/dL 6.4 - 8.3 g/dL [employer] Phone: Globulin NOT REPORTED 1.5 - 3.8 g/dL [employer] Phone: Laboratory - Chemistry and C hemistry - challengeOrdered By: Yossi Gloden on 05-16-2021 GFR/1.73 sq M.predicted MDRD (S/P/Bld) [Vol rate/Area] [employer] Phone: Comment on above: Average GFR for 20-2 9 years old: 116 mL/min/1.73sq m Chronic Kidney Disease: <60 mL/min/1.73sq m Kidney failure: <15 mL/min/1.73sq m eGFR calculated using average adult body mass. Additional eGFR calculator available at: http://www.[employer]/multiple_crcl_2011.htm Stage 1: Some kidney damage normal GFR Stage 2: Mild kidney damage GFR 60-89 Stage 3: Moderate kidney damage GFR 30-59 Stage 4: Severe kidney damage GFR 15-29 Stage 5: Severe kidney damage GFR <15 ESRD - chronic treatment by dialysis or transplant LipaseOrdered By: Yossi reyes on 05-16-2021 Lipase [Catalytic activity/Vol] 58 U/L 13 - 60 U/L [facility] Phone: No Panel InformationOrdered By: Yossi Golden on 05-16-2021 Interpretation and review of laboratory results Abnormal [facility] Phone: [facility] Phone: Otheron 09-25-2020 L4-5 central/right paracentral disc extrusion abutting descending L5 nerve root but not causing significant canal or neural foraminal compromise. Small disc protrusions T7-8 and T8-9. [place]- [place], [place] EXAMINATION: MRI OF THE LUMBAR SPINE WITHOUT [...] spinal canal stenosis or neural foraminal narrowing. [facility]- [place], [place], Mhpn Incoming Radiant Results From [employer] - 09/25/2020 12:18 AM EST EXAMINATION: MRI [...] compromise. Small disc protrusions T7-8 and T8-9. [place] APTTon 09-24-2020 aPTT Coag (Bld) [Time] 23.3 s [place], [place] Comment on above: IV Heparin Therapy Range: 62.0-94.0 Interpretation and review of laboratory results Abnormal [place] CBC Auto Differentialon Basophils (Bld) [#/Vol] 0.00 10*3/uL [place] Basophils/100 WBC (Bld) 0 % 0 - 2 % [place] Differential Type NOT REPORTED [place] Eosinophils (Bld) [#/Vol] 0.12 10*3/uL [place] Eosinophils/100 WBC (Bld) 1 % 1 - 4 % [place] Erythrocyte distribution width (RBC) [Ratio] 13.6 % 11.8 - 14.4 % [place] Hematocrit (Bld) [Volume fraction] 41.4 % 36.3 - 47.1 % [place] Hemoglobin (Bld) [Mass/Vol] 13.4 g/dL 11.9 - 15.1 g/dL [place] Immature granulocytes (Bld) [#/Vol] 0 % 0 [place] Immature granulocytes (Bld) [#/Vol] 0.00 10*3/uL [place] Interpretation and review of laboratory results Abnormal [place] Lymphocytes (Bld) [#/Vol] 4.28 10*3/uL [place] Lymphocytes/100 WBC (Bld) 36 % 24 - 43 % [place] MCH (RBC) [Entitic mass] 27.5 pg 25.2 - 33.5 pg [place] MCHC (RBC) [Mass/Vol] 32.4 g/dL 28.4 - 34.8 g/dL [place] MCV (RBC) [Entitic vol] 84.8 fL 82.6 - 102.9 fL [place] Monocytes (Bld) [#/Vol] 0.71 10*3/uL [place] Monocytes/100 WBC (Bld) 6 % 3 - 12 % [place] Morphology Kenan (Bld) [Interp] Normal [place] Platelet mean volume (Bld) [Entitic vol] 10.0 fL 8.1 - 13.5 fL [place] Platelets (Bld) [#/Vol] NOT REPORTED [place] Platelets (Bld) [#/Vol] 322 10*3/uL [place] RBC (Bld) [#/Vol] 4.88 10*6/uL 3.95 - 5.1 1 m/uL [place] RBC morphology finding Nom (Bld) NOT REPORTED [place] Segmented neutrophils/100 WBC (Bld) 57 % 36 - 65 % [place] Segs Absolute 6.79 [place] WBC (Bld) [#/Vol] 0.0 10*3/uL 0.0 per 10 0 WBC [place] WBC (Bld) [#/Vol] 11.9 10*3/uL [place] WBC Morphology NOT REPORTED [place] Comprehensive Metabolic Pane l w/ Reflex to MGon 09-24-2020 Albumin [Mass/Vol] 4.2 g/dL 3.5 - 5.2 g/dL [place] Albumin/Globulin [Mass ratio] 1.3 {ratio} [place] ALP [Catalytic activity/Vol] 71 U/L 35 - 104 U/L [place] ALT [Catalytic activity/Vol] 20 U/L 5 - 33 U/L [place] Anion gap [Moles/Vol] 10 mmol/L 9 - 17 mmol/L [place] AST [Catalytic activity/Vol] 20 U/L <32 [place] Bilirubin Ql (U) 0.34 mg/dL 0.3 - 1.2 mg/dL [place] Bun/Cre Ratio 22 [place] Calcium [Mass/Vol] 9.4 mg/dL 8.6 - 10. 4 mg/dL [place] Chloride [Moles/Vol] 101 mmol/L 98 - 10 7 mmol/L [place] CO2 [Moles/Vol] 26 mmol/L 20 - 31 mmol/L [place] Creatinine [Mass/Vol] 0.6 mg/dL 0.5 - 0.9 mg/dL [place] GFR >60 >60 mL/min [place] GFR Non- >60 >60 mL/min [place] Glucose [Mass/Vol] 117 mg/dL High 70 - 99 mg/dL [place] Interpretation and review of laboratory results Abnormal [place] Potassium [Moles/Vol] 4.2 mmol/L 3.7 - 5.3 mmol/L [place] Protein [Mass/Vol] 7.5 g/dL 6.4 - 8.3 g/dL [place] Sodium [Moles/Vol] 137 mmol/L 135 - 144 mmol/L [place] Urea nitrogen [Mass/Vol] 13 mg/dL 6 - 20 mg/dL [place] Metabolic Panelon 09-24-2020 GFR/1.73 sq M predicted among non-blacks MDRD (S/P/Bld) [Vol rate/Area] [place] Comment on above: Average GFR for 20-2 9 years old: 116 mL/min/1.73sq m Chronic Kidney Disease: <60 mL/min/1.73sq m Kidney failure: <15 mL/min/1.73sq m eGFR calculated using average adult body mass. Additional eGFR calculator available at: http://www.[employer]/multiple_crcl_2011.htm Stage 1: Some kidney damage normal GFR Stage 2: Mild kidney damage GFR 60-89 Stage 3: Moderate kidney damage GFR 30-59 Stage 4: Severe kidney damage GFR 15-29 Stage 5: Severe kidney damage GFR <15 ESRD - chronic treatment by dialysis or transplant Protime-INRon 09-24-2020 INR Coag (PPP) [Relative time] 1.0 {INR} [place] Comment on above: Non-therapeutic Range: INR = 0.9-1.2 Therapeutic Range: Moderate Anticoagulant Intensity: INR = 2.0-3.0 High Anticoagulant Intensity: INR = 2.5-3.5 PT Coag (PPP) [Time] 12.7 s [place] CT LUMBAR SPINE WO CONTRASTo n 09-17-2020 Small disc herniatio n at L4-L5 with abutment of the descending L5 nerve roots. This appears similar compared to recent abdominal CT 08/27/2020. Disc bulge at L5-S1 also appears similar No acute bony abnormality [place] EXAMINATION: CT OF T HE LUMBAR SPINE WITHOUT CONTRAST 09/17/2020 TECHNIQUE: CT [...] significant bony or central foraminal stenosis SOFT TISSUES/RETROPERITONEU M: No retroperitoneal adenopathy. [place], [place] Incoming Radiant Results From [employer] - 09/17/2020 7:13 PM EST EXAMINATION: CT [...] significant bony or central foraminal stenosis SOFT TISSUES/RETROPERITONEU M: No retroperitoneal adenopathy. IMPRESSION: Small disc herniation at L4-L5 with abutment of the descending L5 nerve roots. This appears similar compared to recent abdominal CT 08/27/2020. Disc bulge at L5-S1 also appears similar No acute bony abnormality [place] CBC Auto Differentialon Basophils (Bld) [#/Vol] 0.04 10*3/uL [place] Basophils/100 WBC (Bld) 1 % 0 - 2 % [place] Differential Type NOT REPORTED [place] Eosinophils (Bld) [#/Vol] 0.11 10*3/uL [place] Eosinophils/100 WBC (Bld) 1 % 1 - 4 % [place] Erythrocyte distribution width (RBC) [Ratio] 13.6 % 11.8 - 14.4 % [place] Hematocrit (Bld) [Volume fraction] 41.7 % 36.3 - 47.1 % [place] Hemoglobin (Bld) [Mass/Vol] 13.0 g/dL 11.9 - 15.1 g/dL [place] Immature granulocytes (Bld) [#/Vol] 0 % 0 [place] Immature granulocytes (Bld) [#/Vol] 0.03 10*3/uL [place] Interpretation and review of laboratory results Abnormal [place] Lymphocytes (Bld) [#/Vol] 3.63 10*3/uL [place] Lymphocytes/100 WBC (Bld) 47 % High 24 - 43 % [place] MCH (RBC) [Entitic mass] 27.4 pg 25.2 - 33.5 pg [place] MCHC (RBC) [Mass/Vol] 31.2 g/dL 28.4 - 34.8 g/dL [place] MCV (RBC) [Entitic vol] 87.8 fL 82.6 - 102.9 fL [place] Monocytes (Bld) [#/Vol] 0.48 10*3/uL [place] Monocytes/100 WBC (Bld) 6 % 3 - 12 % [place] Platelet mean volume (Bld) [Entitic vol] 9.7 fL 8.1 - 13.5 fL [place] Platelets (Bld) [#/Vol] 345 10*3/uL [place] Platelets (Bld) [#/Vol] NOT REPORTED [place] RBC (Bld) [#/Vol] 4.75 10*6/uL 3.95 - 5.1 1 m/uL [place] RBC morphology finding Nom (Bld) NOT REPORTED [place] Segmented neutrophils/100 WBC (Bld) 45 % 36 - 65 % [place] Segs Absolute 3.46 [place] WBC (Bld) [#/Vol] 0.0 10*3/uL 0.0 per 10 0 WBC [place] WBC (Bld) [#/Vol] 7.8 10*3/uL [place] WBC Morphology NOT REPORTED [place] CT ABDOMEN PELVIS W IV CONTR AST Additional Contrast? Noneon 08-27-2020 EXAMINATION: [facility] OF [facility] ABDOMEN AND PELVIS WITH CONTRAST 08/27/2020 1:18 [...] HISTORY: rlq pain FINDINGS: Lower Chest: Mild atelectasis/scarring involving the right lung base. No pericardial [...] grossly unremarkable. No adnexal mass. Fibroid uterus. Peritoneum/Retroperito neum: No free air, free fluid or lymphadenopathy. Bones/Soft Tissues: Osseous structures demonstrate degenerative change. Abdominal wall demonstrates no acute findings. [place] 1. No acute intra-abdominal process. 2. Borderline hepatosplenomegaly. 3. Fibroid uterus. [place], [place] Incoming Radiant Results From [employer] - 08/27/2020 1:39 PM EST EXAMINATION: CT [...] HISTORY: rlq pain FINDINGS: Lower Chest: Mild atelectasis/scarring involving the right lung base. No pericardial [...] grossly unremarkable. No adnexal mass. Fibroid uterus. Peritoneum/Retroperito neum: No free air, free fluid or lymphadenopathy. Bones/Soft Tissues: Osseous structures demonstrate degenerative change. Abdominal wall demonstrates no acute findings. IMPRESSION: 1. No acute intra-abdominal process. 2. Borderline hepatosplenomegaly. 3. Fibroid uterus. [place] Comprehensive Metabolic Pane mando 08-27-2020 Albumin [Mass/Vol] 4.4 g/dL 3.5 - 5.2 g/dL [place] Albumin/Globulin [Mass ratio] 1.3 {ratio} [place] ALP [Catalytic activity/Vol] 77 U/L 35 - 104 U/L [place] ALT [Catalytic activity/Vol] 27 U/L 5 - 33 U/L [place] Anion gap [Moles/Vol] 9 mmol/L 9 - 17 mmol/L [place] AST [Catalytic activity/Vol] 23 U/L <32 [place] Bilirubin Ql (U) 0.29 mg/dL Low 0.3 - 1.2 mg/dL [place] Bun/Cre Ratio 13 [place] Calcium [Mass/Vol] 9.6 mg/dL 8.6 - 10. 4 mg/dL [place] Chloride [Moles/Vol] 102 mmol/L 98 - 10 7 mmol/L [place] CO2 [Moles/Vol] 26 mmol/L 20 - 31 mmol/L [place] Creatinine [Mass/Vol] 0.64 mg/dL 0.5 - 0.9 mg/dL [place] GFR >60 >60 mL/min [place] GFR Non- >60 >60 mL/min [place] Glucose [Mass/Vol] 144 mg/dL High 70 - 99 mg/dL [place] Potassium [Moles/Vol] 4.2 mmol/L 3.7 - 5.3 mmol/L [place] Protein [Mass/Vol] 7.7 g/dL 6.4 - 8.3 g/dL [place] Sodium [Moles/Vol] 137 mmol/L 135 - 144 mmol/L [place] Urea nitrogen [Mass/Vol] 8 mg/dL 6 - 20 mg/dL [place] Lactic Acid, Plasmaon 2019 Lactate [Moles/Vol] 1.4 mmol/L 0.5 - 2. 2 mmol/L [place] Lactic Acid, Whole Blood NOT REPORTED 0.7 - 2.1 mmol/L [place] Lipaseon 08-27-2020 Lipase [Catalytic activity/Vol] 73 U/L High 13 - 60 U/L [place] Metabolic Panelon 08-27-2020 GFR/1.73 sq M predicted among non-blacks MDRD (S/P/Bld) [Vol rate/Area] [place], [place] Comment on above: Average GFR for 20-2 9 years old: 116 mL/min/1.73sq m Chronic Kidney Disease: <60 mL/min/1.73sq m Kidney failure: <15 mL/min/1.73sq m eGFR calculated using average adult body mass. Additional eGFR calculator available at: http://www.[employer]/multiple_crcl_2012.htm Stage 1: Some kidney damage normal GFR Stage 2: Mild kidney damage GFR 60-89 Stage 3: Moderate kidney damage GFR 30-59 Stage 4: Severe kidney damage GFR 15-29 Stage 5: Severe kidney damage GFR <15 ESRD - chronic treatment by dialysis or transplant Otheron 08-27-2020 Interpretation and review of laboratory results Abnormal [place] , Urineon 0 Beta HCG ( test) Ql (U) Negative NEGATIVE [place] Comment on above: Specimens with hCG l evels near the threshold of the test (25 mIU/mL) may give a negative or indeterminate result. In such cases, another test should be performed with a new specimen in 48-72 hours. If early is suspected clinically in this setting, correlation with quantitative serum b-hCG level is suggested. [employer] has confirmed the use of plasma for this test. This has not been cleared or approved by the U.S. Food and Drug Administration. The FDA has determined that such clearance is not necessary. Urinalysis with Microscop[employer] n 08-27-2020 Amorphous, UA NOT REPORTED None [place], [place] Bacteria, UA NOT REPORTED None [place] Bilirubin Urine Negative NEGATIVE [place] Casts UA NOT REPORTED /LPF [place], [place] Color, UA YELLOW YELLOW [place] Crystals, UA NOT REPORTED None /HPF [place] Epithelial Cells UA 0 TO 2 [place] Glucose, Ur Negative NEGATIVE [place] Interpretation and review of laboratory results Abnormal [place] Ketones Ql (U) Negative NEGATIVE [place] Leukocyte esterase Test strip Ql (U) Negative NEGATIVE [place] Mucus, UA NOT REPORTED None [place], [place] Nitrite, Urine Negative NEGATIVE [place] Other Observations UA NOT REPORTED NOT REQ. M [place] pH, UA 5.5 [place] Protein (U) [Mass/Vol] Negative NEGATIVE [place], [place] RBC (U) [#/Vol] None [place], [place] Renal Epithelial, UA NOT REPORTED 0 /HPF [place] Specific [place], UA 1.025 High [place], [place] Trichomonas, UA NOT REPORTED None [facility] [place] Turbidity UA CLEAR CLEAR [place], [place] Urinalysis Comments NOT REPORTED [place] Urine Hgb Negative NEGATIVE [place] Urobilinogen, Urine Normal Normal [place] WBC, UA None [place] Yeast, UA NOT REPORTED None [place] - [place] CT Head WO Contraston 2019 No acute intracrania l abnormality. [place] EXAMINATION: CT OF T HE HEAD WITHOUT CONTRAST 08/13/2020 2:48 pm TECHNIQUE: [...] of the visualized skull or soft tissues. [place], [place] Incoming Radiant Results From [employer] - 08/13/2020 3:12 PM EST EXAMINATION: CT [...] shift. No abnormal extra-axial fluid collection. The olviares-white differentiation is maintained without evidence of an acute infarct. There is no evidence of hydrocephalus. ORBITS: The visualized portion of the orbits demonstrate no acute abnormality. SINUSES: The visualized paranasal sinuses and mastoid air cells demonstrate no acute abnormality. SOFT TISSUES/SKULL: No acute abnormality of the visualized skull or soft tissues. IMPRESSION: No acute intracranial abnormality. [place] Homocysteine, Serumon 2019 Homocysteine 5.6 umol/L <15.0 [place] CBC With Auto Differentialon 07-25-2020 Basophils (Bld) [#/Vol] 0.04 10*3/uL [place] Basophils/100 WBC (Bld) 0 % 0 - 2 % [place] Differential Type NOT REPORTED [place] Eosinophils (Bld) [#/Vol] 0.11 10*3/uL [place] Eosinophils/100 WBC (Bld) 1 % 1 - 4 % [place] Erythrocyte distribution width (RBC) [Ratio] 14.1 % 11.8 - 14.4 % [place] Hematocrit (Bld) [Volume fraction] 37.5 % 36.3 - 47.1 % [place] Hemoglobin (Bld) [Mass/Vol] 11.7 g/dL Low 11.9 - 15.1 g/dL [place] Immature granulocytes (Bld) [#/Vol] 0 % 0 [place] Immature granulocytes (Bld) [#/Vol] 0.03 10*3/uL [place] Interpretation and review of laboratory results Abnormal [place] Lymphocytes (Bld) [#/Vol] 3.82 10*3/uL [place] Lymphocytes/100 WBC (Bld) 42 % 24 - 43 % [place] MCH (RBC) [Entitic mass] 28.1 pg 25.2 - 33.5 pg [place] MCHC (RBC) [Mass/Vol] 31.2 g/dL 28.4 - 34.8 g/dL [place] MCV (RBC) [Entitic vol] 90.1 fL 82.6 - 102.9 fL [place] Monocytes (Bld) [#/Vol] 0.49 10*3/uL [place] Monocytes/100 WBC (Bld) 5 % 3 - 12 % [place] Platelet mean volume (Bld) [Entitic vol] 9.9 fL 8.1 - 13.5 fL [place] Platelets (Bld) [#/Vol] 357 10*3/uL [place] Platelets (Bld) [#/Vol] NOT REPORTED [place] RBC (Bld) [#/Vol] 4.16 10*6/uL 3.95 - 5.1 1 m/uL [place] RBC morphology finding Nom (Bld) NOT REPORTED [place] Segmented neutrophils/100 WBC (Bld) 52 % 36 - 65 % [place] Segs Absolute 4.55 [place] WBC (Bld) [#/Vol] 9.0 10*3/uL [place] WBC (Bld) [#/Vol] 0.0 10*3/uL 0.0 per 10 0 WBC [place] WBC Morphology NOT REPORTED [place], [place] CBCon 06-15-2020 Erythrocyte distribution width (RBC) [Ratio] 16.3 % High 11.8 - 14.4 % [place] Hematocrit (Bld) [Volume fraction] 31.8 % Low 36.3 - 47.1 % [place] Hemoglobin (Bld) [Mass/Vol] 10.1 g/dL Low 11.9 - 15.1 g/dL [place] Interpretation and review of laboratory results Abnormal [place] MCH (RBC) [Entitic mass] 29.4 pg 25.2 - 33.5 pg [place] MCHC (RBC) [Mass/Vol] 31.8 g/dL 28.4 - 34.8 g/dL [place] MCV (RBC) [Entitic vol] 92.7 fL 82.6 - 102.9 fL [place] Platelet mean volume (Bld) [Entitic vol] 11.9 fL 8.1 - 13.5 fL [place] Platelets (Bld) [#/Vol] 146 10*3/uL [place] RBC (Bld) [#/Vol] 3.43 10*6/uL Low 3.95 - 5.1 1 m/uL [place] WBC (Bld) [#/Vol] 0.0 10*3/uL 0.0 per 10 0 WBC [place] WBC (Bld) [#/Vol] 8.5 10*3/uL [place] Surgical Pathologyon 020 Surgical Pathology Report [id number] [facility] [employer] [facility] ANATOMIC PATHOLOGY [address] [place] [address]. [place], [place] [address] SURGICAL PATHOLOGY CONSULTATION Patient Name: GAEL RUBY MR#: [id number] Specimen #[id number] Procedures/Addenda PERIPHERAL BLOOD REPORT Date Ordered: 06/15/2020 Status: Signed Out Date Complete: 06/15/2020 By: Ronaldo Koch M.D. Date Reported: 06/15/2020 INTERPRETATION PERIPHERAL BLOOD: MILD NORMOCYTIC ANEMIA WITH MILD RETICULOCYTOSIS, SUGGESTING POSTHEMORRHAGIC ANEMIA, HEMOLYTIC ANEMIA, TREATED NUTRITIONAL ANEMIA, ETC. NO SPECIFIC MORPHOLOGIC RBC ABNORMALITIES. >10% REACTIVE LYMPHOCYTES SUGGEST VIRAL INFECTION, HINA. EBV, CMV, HEPATITIS, DRUG REACTION, ETC. RESULTS-COMMENTS PERIPHERAL BLOOD STUDY CBC: Please see the electronic health record for CBC parameters ([id number], 06/13/2020, 20:18). PLATELETS: Platelets show normal morphology. LEUKOCYTES: > 10% reactive lymphocytes; increased bands ERYTHROCYTES: Mild Anisocytosis, polychromasia Ronaldo Koch M.D. Source: 1: PERIPHERAL BLOOD FOR REVIEW BY PATHOLOGIST [facility]- [place] CHRISTIANO DUP LOWER EXTREMITY VENOU S BILATERALon 06-15-2020 Pe[place], pn Incoming Cardio Results From [employer] - 06/15/2020 8:06 AM EDT [facility] Vascular Lower Extremities DVT Study Procedure Patient Name FLORI Date of Study 06/14/2020 GAEL Al Date of 1995 Gender Female Age 24 year(s) Race Room Number 0320 Corporate ID # [id number] Patient MR # [id number] Clinical Trial Coordinator [facility] [employer] Interpreting Physician Ronaldo Marinelli MD Referring Referring Physician Dedra Pineda Nurse Practitioner Procedure Type of Study: Veins: Lower Extremities DVT Study, Venous Scan Lower Bilateral. Patient Status:In Patient. Technical Quality:Adequate visualization. Comments:INDICATIONS: PE Conclusions Summary Negative for acute DVT. Lobulated cystic structure in the medial proximal left calf. This may represent a bursa or possibly ruptured popliteal cyst. Consider follow-up imaging if symptoms are present in this area. Signature Findings: Right Impression: Left Impression: The common [...] DVT Study Measurements Right 2D Measurements + +------ ----+ +- --------- + !Location !Visualized!Compressib ility!Thrombosis! + +------ ----+ +- --------- + !Common Femoral !Yes !Yes !None ! + +------ ----+ +- --------- + !Prox Femoral !Yes !Yes !None ! + +------ ----+ +- --------- + !Mid Femoral !Yes !Yes !None ! + +------ ----+ +- --------- + !Dist Femoral !Yes !Yes !None ! + +------ ----+ +- --------- + !Deep Femoral !Yes !Yes !None ! + +------ ----+ +- --------- + !Popliteal !Yes !Yes !None ! + +------ ----+ +- --------- + !Sapheno Femoral Junction !Yes !Yes !None ! + +------ ----+ +- --------- + !PTV !Yes !Yes !None ! + +------ ----+ +- --------- + !Peroneal !Yes !Yes !None ! + +------ ----+ +- --------- + !Gastroc !Yes !Yes !None ! + +------ ----+ +- --------- + !GSV Thigh !Yes !Yes !None ! + +------ ----+ +- --------- + !GSV Knee !Yes !Yes !None ! + +------ ----+ +- --------- + !GSV Ankle !Yes !Yes !None ! + +------ ----+ +- --------- + !SSV !Yes !Yes !None ! + +------ ----+ +- --------- + Right Doppler Measurements + ------+------+------+- --------- + !Location !Signal!Reflux!Reflux (msec) ! + ------+------+------+- --------- + !Common Femoral !Phasic!No ! ! + ------+------+------+- --------- + !Prox Femoral !Phasic!No ! ! + ------+------+------+- --------- + !Popliteal !Phasic!No ! ! + ------+------+------+- --------- + Left Lower Extremities DVT Study Measurements Left 2D Measurements + +------ ----+ +- --------- + !Location !Visualized!Compressib ility!Thrombosis! + +------ ----+ +- --------- + !Common Femoral !Yes !Yes !None ! + +------ ----+ +- --------- + !Prox Femoral !Yes !Yes !None ! + +------ ----+ +- --------- + !Mid Femoral !Yes !Yes !None ! + +------ ----+ +- --------- + !Dist Femoral !Yes !Yes !None ! + +------ ----+ +- --------- + !Deep Femoral !Yes !Yes !None ! + +------ ----+ +- --------- + !Popliteal !Yes !Yes !None ! + +------ ----+ +- --------- + !Sapheno Femoral Junction !Yes !Yes !None ! + +------ ----+ +- --------- + !PTV !Yes !Yes !None ! + +------ ----+ +- --------- + !Peroneal !Yes !Yes !None ! + +------ ----+ +- --------- + !Gastroc !Yes !Yes !None ! + +------ ----+ +- --------- + !GSV Thigh !Yes !Yes !None ! + +------ ----+ +- --------- + !GSV Knee !Yes !Yes !None ! + +------ ----+ +- --------- + !GSV Ankle !Yes !Yes !None ! + +------ ----+ +- --------- + !SSV !Yes !Yes !None ! + +------ ----+ +- --------- + Left Doppler Measurements + ------+------+------+- --------- + !Location !Signal!Reflux!Reflux (msec) ! + ------+------+------+- --------- + !Common Femoral !Phasic!No ! ! + ------+------+------+- --------- + !Prox Femoral !Phasic!No ! ! + ------+------+------+- --------- + !Popliteal !Phasic!No ! ! + ------+------+------+- --------- + [place]- [place], [facility] Vascular Lower Extremities DVT Study Procedure Patient Name FLORI Date of Study 06/14/2020 GAEL Al Date of 1995 Gender Female Age 24 year(s) Race Room Number 0320 Corporate ID # [id number] Patient MR # [id number] Clinical Trial Coordinator NGA [employer] Interpreting Physician Ronaldo Marinelli MD Referring Referring Physician Dedra Pineda Nurse Practitioner Procedure Type of Study: Veins: Lower Extremities DVT Study, Venous Scan Lower Bilateral. Patient Status:In Patient. Technical Quality:Adequate visualization. Comments:INDICATIONS: PE Conclusions Summary Negative for acute DVT. Lobulated cystic structure in the medial proximal left calf. This may represent a bursa or possibly ruptured popliteal cyst. Consider follow-up imaging if symptoms are present in this area. Signature Findings: Right Impression: Left Impression: The common [...] DVT Study Measurements Right 2D Measurements + +------ ----+ +- ---------+ !Location !Visualized!Compressib ility!Thrombosis! + +------ ----+ +- ---------+ !Common Femoral !Yes !Yes !None ! + +------ ----+ +- ---------+ !Prox Femoral !Yes !Yes !None ! + +------ ----+ +- ---------+ !Mid Femoral !Yes !Yes !None ! + +------ ----+ +- ---------+ !Dist Femoral !Yes !Yes !None ! + +------ ----+ +- ---------+ !Deep Femoral !Yes !Yes !None ! + +------ ----+ +- ---------+ !Popliteal !Yes !Yes !None ! + +------ ----+ +- ---------+ !Sapheno Femoral Junction !Yes !Yes !None ! + +------ ----+ +- ---------+ !PTV !Yes !Yes !None ! + +------ ----+ +- ---------+ !Peroneal !Yes !Yes !None ! + +------ ----+ +- ---------+ !Gastroc !Yes !Yes !None ! + +------ ----+ +- ---------+ !GSV Thigh !Yes !Yes !None ! + +------ ----+ +- ---------+ !GSV Knee !Yes !Yes !None ! + +------ ----+ +- ---------+ !GSV Ankle !Yes !Yes !None ! + +------ ----+ +- ---------+ !SSV !Yes !Yes !None ! + +------ ----+ +- ---------+ Right Doppler Measurements + ------+------+------+- ---------+ !Location !Signal!Reflux!Reflux (msec) ! + ------+------+------+- ---------+ !Common Femoral !Phasic!No ! ! + ------+------+------+- ---------+ !Prox Femoral !Phasic!No ! ! + ------+------+------+- ---------+ !Popliteal !Phasic!No ! ! + ------+------+------+- ---------+ Left Lower Extremities DVT Study Measurements Left 2D Measurements + +------ ----+ +- ---------+ !Location !Visualized!Compressib ility!Thrombosis! + +------ ----+ +- ---------+ !Common Femoral !Yes !Yes !None ! + +------ ----+ +- ---------+ !Prox Femoral !Yes !Yes !None ! + +------ ----+ +- ---------+ !Mid Femoral !Yes !Yes !None ! + +------ ----+ +- ---------+ !Dist Femoral !Yes !Yes !None ! + +------ ----+ +- ---------+ !Deep Femoral !Yes !Yes !None ! + +------ ----+ +- ---------+ !Popliteal !Yes !Yes !None ! + +------ ----+ +- ---------+ !Sapheno Femoral Junction !Yes !Yes !None ! + +------ ----+ +- ---------+ !PTV !Yes !Yes !None ! + +------ ----+ +- ---------+ !Peroneal !Yes !Yes !None ! + +------ ----+ +- ---------+ !Gastroc !Yes !Yes !None ! + +------ ----+ +- ---------+ !GSV Thigh !Yes !Yes !None ! + +------ ----+ +- ---------+ !GSV Knee !Yes !Yes !None ! + +------ ----+ +- ---------+ !GSV Ankle !Yes !Yes !None ! + +------ ----+ +- ---------+ !SSV !Yes !Yes !None ! + +------ ----+ +- ---------+ Left Doppler Measurements + ------+------+------+- ---------+ !Location !Signal!Reflux!Reflux (msec) ! + ------+------+------+- ---------+ !Common Femoral !Phasic!No ! ! + ------+------+------+- ---------+ !Prox Femoral !Phasic!No ! ! + ------+------+------+- ---------+ !Popliteal !Phasic!No ! ! + ------+------+------+- ---------+ [place] CBCon 06-14-2020 Erythrocyte distribution width (RBC) [Ratio] 16.1 % High 11.8 - 14.4 % [place] Hematocrit (Bld) [Volume fraction] 30.2 % Low 36.3 - 47.1 % [place] Hemoglobin (Bld) [Mass/Vol] 9.4 g/dL Low 11.9 - 15.1 g/dL [place] Interpretation and review of laboratory results Abnormal [place] MCH (RBC) [Entitic mass] 29.4 pg 25.2 - 33.5 pg [place] MCHC (RBC) [Mass/Vol] 31.1 g/dL 28.4 - 34.8 g/dL [place] MCV (RBC) [Entitic vol] 94.4 fL 82.6 - 102.9 fL [place] Platelet mean volume (Bld) [Entitic vol] 11.4 fL 8.1 - 13.5 fL [place] Platelets (Bld) [#/Vol] 158 10*3/uL [place] RBC (Bld) [#/Vol] 3.20 10*6/uL Low 3.95 - 5.1 1 m/uL [place] WBC (Bld) [#/Vol] 7.0 10*3/uL [place] WBC (Bld) [#/Vol] 0.0 10*3/uL 0.0 per 10 0 WBC [place] EKG 12 Leadon 06-14-2020 Atrial Rate 115 BPM [place] P [place] 40 degrees [place] P-R Interval 128 ms [place] Q-T Interval 328 ms [place] QRS Duration 74 ms [place] QTc Calculation (Bazett) 453 ms [place] R [place] 35 degrees [facility], [place] T [place] 34 degrees [place], [place] Ventricular Rate 115 BPM [place] Peyman, Mhpn Incoming [place] [facility] [place]/14[place] 9:39 AM EDT Sinus tachycardia Septal infarct , age undetermined Abnormal ECG When compared with ECG of 25-MAY-2019 20:08, No significant change was found Confirmed by KLAUS ROLLE ([id number]) on 06/14/2020 9:39:42 AM [place] Sinus tachycardia Septal infarct , age undetermined Abnormal ECG When compared with ECG of 25-MAY-2019 20:08, No significant change was found Confirmed by KLAUS ROLLE ([id number]) on 06/14/2020 9:39:42 AM [place] Basic Metabolic Panelon - Anion gap [Moles/Vol] 10 mmol/L 9 - 17 mmol/L [place] Bun/Cre Ratio 7 Low [place] Calcium [Mass/Vol] 8.7 mg/dL 8.6 - 10. 4 mg/dL [place] Chloride [Moles/Vol] 105 mmol/L 98 - 10 7 mmol/L [place] CO2 [Moles/Vol] 23 mmol/L 20 - 31 mmol/L [place] Creatinine [Mass/Vol] 1.05 mg/dL High 0.5 - 0.9 mg/dL [place] GFR >60 >60 mL/min [place] GFR Non- >60 >60 mL/min [place] Glucose [Mass/Vol] 106 mg/dL High 70 - 99 mg/dL [place] Interpretation and review of laboratory results Abnormal [place] Potassium [Moles/Vol] 3.6 mmol/L Low 3.7 - 5.3 mmol/L [place] Sodium [Moles/Vol] 138 mmol/L 135 - 144 mmol/L [place] Urea nitrogen [Mass/Vol] 7 mg/dL 6 - 20 mg/dL [place] CBC Auto Differentialon 05-25 Atypical Lymphocytes 47 % [place] Atypical Lymphocytes Absolute 3.56 k/uL [place] Basophils (Bld) [#/Vol] 0.08 10*3/uL [place] Basophils/100 WBC (Bld) 1 % 0 - 2 % [place] Differential Type NOT REPORTED [place] Eosinophils (Bld) [#/Vol] 0.08 10*3/uL [place] Eosinophils/100 WBC (Bld) 1 % 1 - 4 % [place] Erythrocyte distribution width (RBC) [Ratio] 15.8 % High 11.8 - 14.4 % [place] Hematocrit (Bld) [Volume fraction] 34.4 % Low 36.3 - 47.1 % [place] Hemoglobin (Bld) [Mass/Vol] 10.8 g/dL Low 11.9 - 15.1 g/dL [place] Immature granulocytes (Bld) [#/Vol] 0.00 10*3/uL [place] Immature granulocytes (Bld) [#/Vol] 0 % 0 [place] Interpretation and review of laboratory results Abnormal [place] Lymphocytes (Bld) [#/Vol] 1.29 10*3/uL [place] Lymphocytes/100 WBC (Bld) 17 % Low 24 - 43 % [place] MCH (RBC) [Entitic mass] 29.3 pg 25.2 - 33.5 pg [place] MCHC (RBC) [Mass/Vol] 31.4 g/dL 28.4 - 34.8 g/dL [place] MCV (RBC) [Entitic vol] 93.2 fL 82.6 - 102.9 fL [place] Monocytes (Bld) [#/Vol] 0.23 10*3/uL [place] Monocytes/100 WBC (Bld) 3 % 3 - 12 % [place] Morphology Kenan (Bld) [Interp] Normal [place] Platelet mean volume (Bld) [Entitic vol] 10.3 fL 8.1 - 13.5 fL [place] Platelets (Bld) [#/Vol] NOT REPORTED [place] Platelets (Bld) [#/Vol] 195 10*3/uL [place] RBC (Bld) [#/Vol] 3.69 10*6/uL Low 3.95 - 5.1 1 m/uL [place] RBC morphology finding Nom (Bld) NOT REPORTED [place] Segmented neutrophils/100 WBC (Bld) 31 % Low 36 - 65 % [place] Segs Absolute 2.36 [place] WBC (Bld) [#/Vol] 0.0 10*3/uL 0.0 per 10 0 WBC [place] WBC (Bld) [#/Vol] 7.6 10*3/uL [place] WBC Morphology NOT REPORTED [place], [place] CT CHEST PULMONARY EMBOLISM W CONTRASTon 06-13-2020 Peyman, pn Incoming Radiant Results From [employer] - 06/13/2020 10:43 PM EDT EXAMINATION: CTA [...] were called by Dr. Serafin Dietz to KRYSTINA LLANES on 06/13/2020 at 22:38. [place] 1. Multiple bilatera l pulmonary emboli, with greatest involvement of the lower lobes, without evidence of RV strain 2. Critical results were called by Dr. Serafin Dietz to KRYSTINA LLANES on 06/13/2020 at 22:38. [place] EXAMINATION: CTA OF THE CHEST 06/13/2020 [...] No acute bone or soft tissue abnormality. [facility] [place] D-Dimer, Quantitativeon 09- D-Dimer, Quant 3.94 High [place] Comment on above: When combined with [...] Interpretation and review of laboratory results Abnormal [place] Metabolic Panelon 06-13-2020 GFR/1.73 sq M predicted among non-blacks MDRD (S/P/Bld) [Vol rate/Area] [place] Comment on above: Average GFR for 20-2 9 years old: 116 mL/min/1.73sq m Chronic Kidney Disease: <60 mL/min/1.73sq m Kidney failure: <15 mL/min/1.73sq m eGFR calculated using average adult body mass. Additional eGFR calculator available at: http://www.[employer]/multiple_crcl_2012.htm Stage 1: Some kidney damage normal GFR Stage 2: Mild kidney damage GFR 60-89 Stage 3: Moderate kidney damage GFR 30-59 Stage 4: Severe kidney damage GFR 15-29 Stage 5: Severe kidney damage GFR <15 ESRD - chronic treatment by dialysis or transplant Reticulocyteson 06-13-2020 Absolute Retic # 0.185 [place] Immature Retic Fract 32.8 % High 2.7 - 1 8.3 % [place] Interpretation and review of laboratory results Abnormal [place] Retic % 5.1 % High 0.5 - 1.9 % [place] Retic Hemoglobin 32.0 pg 28.2 - 35.7 pg [place] Troponinon 06-13-2020 Troponin I.cardiac [Mass/Vol] NOT REPORTED [place] Troponin T.cardiac [Mass/Vol] NOT REPORTED <0.03 ng/mL [place] Troponin, High Sensitivity <6 0 - 14 ng/L [place] Comment on above: High Sensitivity Troponin values cannot be compared with other Troponin methodologies. Patients with high levels of Biotin oral intake (i.e >5mg/day) may have falsely decreased Troponin levels. Samples collected within 8 hours of biotin intake may require additional information for diagnosis. XR CHEST PORTABLEon 06-13-20 No acute cardiopulmonary pathology. [place] EXAMINATION: ONE XRA Y VIEW OF THE CHEST 06/13/2020 7:56 pm [...] structures and soft tissues are grossly intact. [place] Peyman, Mhpn Incoming Radiant Results From [employer] - 06/13/2020 8:03 PM EDT EXAMINATION: ONE [...] grossly intact. IMPRESSION: No acute cardiopulmonary pathology. [place] CBC auto differentialon Basophils (Bld) [#/Vol] 10*3/uL [place] Basophils/100 WBC (Bld) 0 % 0 - 2 % [place] Differential Type NOT REPORTED [place] Eosinophils (Bld) [#/Vol] 0.08 10*3/uL [place] Eosinophils/100 WBC (Bld) 1 % 1 - 4 % [place] Erythrocyte distribution width (RBC) [Ratio] 14.7 % High 11.8 - 14.4 % [place] Hematocrit (Bld) [Volume fraction] 27.0 % Low 36.3 - 47.1 % [place] Hemoglobin (Bld) [Mass/Vol] 8.8 g/dL Low 11.9 - 15.1 g/dL [place] Immature granulocytes (Bld) [#/Vol] 1 % High 0 [place] Immature granulocytes (Bld) [#/Vol] 0.07 10*3/uL [place] Interpretation and review of laboratory results Abnormal [place] Lymphocytes (Bld) [#/Vol] 2.83 10*3/uL [place] Lymphocytes/100 WBC (Bld) 23 % Low 24 - 43 % [place] MCH (RBC) [Entitic mass] 30.8 pg 25.2 - 33.5 pg [place] MCHC (RBC) [Mass/Vol] 32.6 g/dL 28.4 - 34.8 g/dL [place] MCV (RBC) [Entitic vol] 94.4 fL 82.6 - 102.9 fL [place] Monocytes (Bld) [#/Vol] 0.81 10*3/uL [place] Monocytes/100 WBC (Bld) 7 % 3 - 12 % [place] Platelet mean volume (Bld) [Entitic vol] 11.2 fL 8.1 - 13.5 fL [place] Platelets (Bld) [#/Vol] NOT REPORTED [place] Platelets (Bld) [#/Vol] 192 10*3/uL [place] RBC (Bld) [#/Vol] 2.86 10*6/uL Low 3.95 - 5.1 1 m/uL [place] RBC morphology finding Nom (Bld) NOT REPORTED [place] Segmented neutrophils/100 WBC (Bld) 68 % High 36 - 65 % [place] Segs Absolute 8.56 High [place] WBC (Bld) [#/Vol] 12.4 10*3/uL [place] WBC (Bld) [#/Vol] 0.0 10*3/uL 0.0 per 10 0 WBC [place] WBC Morphology NOT REPORTED [place], [place] Glucose, Fastingon 0 Glucose [Mass/Vol] 88 mg/dL 70 - 99 mg/dL [place] Surgical Pathologyon 020 Surgical Pathology Report -- Diagnosis -- RIGHT FALLOPIAN TUBE, SALPINGECTOMY: - PARATUBAL ADENOFIBROMA. - MULTIPLE PARATUBAL CYSTS. - NEGATIVE FOR OVARIAN PARENCHYMA OR ATYPIA. Devang Leach M.D. Electronically Signed Out 05/24/2020 Clinical Information Operative Findings: RIGHT FALLOPIAN TUBE Source of Specimen 1: RIGHT FALLOPIAN TUBE Gross Description GAEL RUBY, RIGHT FALLOPIAN TUBE 6.0 cm long x 0.6 cm in diameter fimbriated fallopian tube segment. The serosa is pink-rodriguez, focally disrupted with multiple paratubal cysts up to 2.6 cm. The largest contains impacted mucinous material with a few areas of papillary excrescences. Tube entirely, 4cs. tm Microscopic Description Microscopic examination performed. SURGICAL PATHOLOGY CONSULTATION Patient Name: GAEL RUBY [facility] Rec: [id number] Path Number: [id number] [facility] [employer] [facility] ANATOMIC PATHOLOGY [address] [place] [address]. [place], [place] [id number] [place] Glucose, Whole Bloodon 05-23 Glucose [Mass/Vol] 152 mg/dL High 74 - 100 mg/dL [place] Interpretation and review of laboratory results Abnormal [place] Glucose [Mass/Vol] 110 mg/dL High 74 - 100 mg/dL [place] Interpretation and review of laboratory results Abnormal [place] Glucose [Mass/Vol] 178 mg/dL High 74 - 100 mg/dL [place] Interpretation and review of laboratory results Abnormal [place] Hemoglobinon 05-23-2020 Hemoglobin (Bld) [Mass/Vol] 9.9 g/dL Low 11.9 - 15.1 g/dL [place] Interpretation and review of laboratory results Abnormal [place] CBCon 05-22-2020 Erythrocyte distribution width (RBC) [Ratio] 14.6 % High 11.8 - 14.4 % [place] Hematocrit (Bld) [Volume fraction] 35.2 % Low 36.3 - 47.1 % [place] Hemoglobin (Bld) [Mass/Vol] 11.6 g/dL Low 11.9 - 15.1 g/dL [place] Interpretation and review of laboratory results Abnormal [place] MCH (RBC) [Entitic mass] 30.9 pg 25.2 - 33.5 pg [place] MCHC (RBC) [Mass/Vol] 33.0 g/dL 28.4 - 34.8 g/dL [place] MCV (RBC) [Entitic vol] 93.9 fL 82.6 - 102.9 fL [place] Platelet mean volume (Bld) [Entitic vol] 11.1 fL 8.1 - 13.5 fL [place] Platelets (Bld) [#/Vol] 245 10*3/uL [place] RBC (Bld) [#/Vol] 3.75 10*6/uL Low 3.95 - 5.1 1 m/uL [place] WBC (Bld) [#/Vol] 14.0 10*3/uL [place] WBC (Bld) [#/Vol] 0.0 10*3/uL 0.0 per 10 0 WBC [place] DRUG SCREEN MULTI URINEon Amphetamine Screen, Ur Negative NEGATIVE [place] Barbiturate Screen, Ur Negative NEGATIVE [place] Benzodiazepine Screen, Urine Negative NEGATIVE [place] Buprenorphine Urine Negative NEGATIVE [place] Cannabinoid Scrn, Ur Negative NEGATIVE [place], [place] Cocaine Metabolite, Urine Negative NEGATIVE [place] MDMA, Urine NOT REPORTED NEGATIVE [place] Methadone Screen, Urine Negative NEGATIVE [place] Methamphetamine, Urine Negative NEGATIVE [place] Opiates, Urine Negative NEGATIVE [place] Oxycodone Screen, Ur Negative NEGATIVE [place], [place] Phencyclidine, Urine Negative NEGATIVE [place], [place] Propoxyphene, Urine Negative NEGATIVE [place] Test Information NOT REPORTED [place] Tricyclic Antidepressants, Urine Negative NEGATIVE [place] Comment on above: Drug screen results are to be used for medical purposes only. All positive results are unconfirmed. Testing for employment or legal uses should be sent to a reference laboratory for confirmation. TYPE AND SCREENon 05-22-2020 ABO/Rh Positive [place] Arm Band Number [id number] [place], [place] Expiration Date 05/25/2020,9133 [place], [place] Urinalysison 04-29-2020 Bilirubin Urine Negative NEGATIVE [facility] [place] Color, UA YELLOW YELLOW [facility] Glucose, Ur Negative NEGATIVE [facility] Ketones Ql (U) Negative NEGATIVE [facility] [place] Leukocyte esterase Test strip Ql (U) Negative NEGATIVE [facility] Nitrite, Urine Negative NEGATIVE [facility] pH, UA 7.5 [facility] Protein (U) [Mass/Vol] Negative NEGATIVE [facility] [place] Specific [place], UA 1.010 [facility] [place] Turbidity UA CLEAR CLEAR [facility] [place] Urinalysis Comments NOT REPORTED [facility] Urine Hgb Negative NEGATIVE [facility] Urobilinogen, Urine Normal Normal [facility] Urinalysison 04-08-2020 Bilirubin Urine Negative NEGATIVE [facility] [place] Color, UA YELLOW YELLOW [facility] Glucose, Ur Negative NEGATIVE [facility] Ketones Ql (U) Negative NEGATIVE [facility] [place] Leukocyte esterase Test strip Ql (U) Negative NEGATIVE [facility] Nitrite, Urine Negative NEGATIVE [facility] pH, UA 6.5 [facility] Protein (U) [Mass/Vol] Negative NEGATIVE [facility] Specific [place], UA 1.020 [facility] Turbidity UA CLEAR CLEAR [facility] [place] Urinalysis Comments NOT REPORTED [facility] [place] Urine Hgb Negative NEGATIVE [facility]- [place] Urobilinogen, Urine Normal Normal [facility] CBC auto differentialon 03-23 Basophils (Bld) [#/Vol] 0.04 10*3/uL [facility] [place] Basophils/100 WBC (Bld) 0 % 0 - 2 % [facility] [place] Differential Type NOT REPORTED [place] Eosinophils (Bld) [#/Vol] 0.10 10*3/uL [facility], [place] Eosinophils/100 WBC (Bld) 1 % 1 - 4 % [facility] [place] Erythrocyte distribution width (RBC) [Ratio] 14.1 % 11.8 - 14.4 % [place] Hematocrit (Bld) [Volume fraction] 32.7 % Low 36.3 - 47.1 % [place] Hemoglobin (Bld) [Mass/Vol] 10.9 g/dL Low 11.9 - 15.1 g/dL [place] Immature granulocytes (Bld) [#/Vol] 1 % High 0 [place] Immature granulocytes (Bld) [#/Vol] 0.13 10*3/uL [place] Interpretation and review of laboratory results Abnormal [place] Lymphocytes (Bld) [#/Vol] 3.63 10*3/uL [place] Lymphocytes/100 WBC (Bld) 21 % Low 24 - 43 % [place] MCH (RBC) [Entitic mass] 31.1 pg 25.2 - 33.5 pg [place] MCHC (RBC) [Mass/Vol] 33.3 g/dL 28.4 - 34.8 g/dL [place] MCV (RBC) [Entitic vol] 93.4 fL 82.6 - 102.9 fL [place] Monocytes (Bld) [#/Vol] 1.04 10*3/uL [place] Monocytes/100 WBC (Bld) 6 % 3 - 12 % [place] Platelet mean volume (Bld) [Entitic vol] 10.3 fL 8.1 - 13.5 fL [place] Platelets (Bld) [#/Vol] 249 10*3/uL [place] Platelets (Bld) [#/Vol] NOT REPORTED [place] RBC (Bld) [#/Vol] 3.50 10*6/uL Low 3.95 - 5.1 1 m/uL [place] RBC morphology finding Nom (Bld) NOT REPORTED [place] Segmented neutrophils/100 WBC (Bld) 71 % High 36 - 65 % [place] Segs Absolute 12.11 [place] WBC (Bld) [#/Vol] 0.0 10*3/uL 0.0 per 10 0 WBC [place] WBC (Bld) [#/Vol] 17.1 10*3/uL [place] WBC Morphology NOT REPORTED [place], [place] TSH with Reflexon 04-03-2020 TSH Qn 0.97 m[IU]/L [place] Microscopic Urinalysison Amorphous, UA NOT REPORTED None [place] Bacteria, UA TRACE Abnormal None [place], [place] Casts UA 2 TO 5 COARSELY GRANULAR /LPF [place] Casts UA HYALINE /LPF [place] Casts UA 0 TO 2 /LPF [place] Crystals, UA NOT REPORTED None /HPF [place] Epithelial Cells UA 10 TO 20 [place] Interpretation and review of laboratory results Abnormal [place] Mucus, UA TRACE Abnormal None [place] Other Observations UA NOT REPORTED NOT REQ. [place] RBC (U) [#/Vol] 0 TO 2 [place] Renal Epithelial, UA NOT REPORTED 0 /HPF [place] Trichomonas, UA NOT REPORTED None [place], [place] WBC, UA 5 TO 10 [place] Yeast, UA NOT REPORTED None [place] - [place] Urinalysison 04-02-2020 Bilirubin Urine Negative NEGATIVE [place] Color, UA YELLOW YELLOW [place] Glucose, Ur Negative NEGATIVE [place] Interpretation and review of laboratory results Abnormal [place] Ketones Ql (U) 1+ Abnormal NEGATIVE [place] Leukocyte esterase Test strip Ql (U) Negative NEGATIVE [place] Nitrite, Urine Negative NEGATIVE [place] pH, UA 6.0 [place] Protein (U) [Mass/Vol] Negative NEGATIVE [place] Specific [place], UA 1.020 [place], [place] Turbidity UA CLEAR CLEAR [place] Urinalysis Comments NOT REPORTED [place] Urine Hgb Negative NEGATIVE [place] Urobilinogen, Urine Normal Normal [place] Glucose, Whole Bloodon 03-29 Glucose [Mass/Vol] 110 mg/dL [place] 74 - 100 mg/dL [place] Interpretation and review of laboratory results Abnormal [place] Microscopic Urinalysison Amorphous, UA NOT REPORTED None [place] Bacteria, UA 1+ Abnormal None [place], [place] Casts UA NOT REPORTED /LPF [place] Crystals, UA NOT REPORTED None /HPF [place] Epithelial Cells UA 0 TO 2 [place] Interpretation and review of laboratory results Abnormal [place] Mucus, UA 2+ Abnormal None [place] Other Observations UA NOT REPORTED NOT REQ. [place] RBC (U) [#/Vol] 0 TO 2 [place] Renal Epithelial, UA NOT REPORTED 0 /HPF [place] Trichomonas, UA NOT REPORTED None [place], [place] WBC, UA 0 TO 2 [place] Yeast, UA NOT REPORTED None [place] - [place] Urinalysison 03-29-2020 Bilirubin Urine Negative NEGATIVE [place] Color, UA YELLOW YELLOW [place] Glucose, Ur Negative NEGATIVE [place] Interpretation and review of laboratory results Abnormal [place] Ketones Ql (U) 4+ Abnormal NEGATIVE [place] Leukocyte esterase Test strip Ql (U) Negative NEGATIVE [place] Nitrite, Urine Negative NEGATIVE [place] pH, UA 6.5 [place] Protein (U) [Mass/Vol] Negative NEGATIVE [place] Specific [place], UA 1.020 [place], [place] Turbidity UA CLEAR CLEAR [place], [place] Urinalysis Comments NOT REPORTED [place] Urine Hgb Negative NEGATIVE [place] Urobilinogen, Urine Normal Normal [place] CBCon 02-26-2020 Erythrocyte distribution width (RBC) [Ratio] 13.7 % 11.8 - 14.4 % [place] Hematocrit (Bld) [Volume fraction] 32.9 % Low 36.3 - 47.1 % [place] Hemoglobin (Bld) [Mass/Vol] 11.1 g/dL Low 11.9 - 15.1 g/dL [place] Interpretation and review of laboratory results Abnormal [place] MCH (RBC) [Entitic mass] 31.6 pg 25.2 - 33.5 pg [place] MCHC (RBC) [Mass/Vol] 33.7 g/dL 28.4 - 34.8 g/dL [place] MCV (RBC) [Entitic vol] 93.7 fL 82.6 - 102.9 fL [place] Platelet mean volume (Bld) [Entitic vol] 10.6 fL 8.1 - 13.5 fL [place] Platelets (Bld) [#/Vol] 247 10*3/uL [place] RBC (Bld) [#/Vol] 3.51 10*6/uL Low 3.95 - 5.1 1 m/uL [place] WBC (Bld) [#/Vol] 13.7 10*3/uL [place] WBC (Bld) [#/Vol] 0.0 10*3/uL 0.0 per 10 0 WBC [place] Comprehensive metabolic pane mando 02-26-2020 Albumin [Mass/Vol] 3.4 g/dL Low 3.5 - 5.2 g/dL [place] Albumin/Globulin [Mass ratio] 1.1 {ratio} [place] ALP [Catalytic activity/Vol] 69 U/L 35 - 104 U/L [place] ALT [Catalytic activity/Vol] 8 U/L 5 - 33 U/L [place] Anion gap [Moles/Vol] 12 mmol/L 9 - 17 mmol/L [place] AST [Catalytic activity/Vol] 12 U/L <32 [place] Bilirubin Ql (U) 0.22 mg/dL Low 0.3 - 1.2 mg/dL [place] Bun/Cre Ratio 9 [place] Calcium [Mass/Vol] 8.9 mg/dL 8.6 - 10. 4 mg/dL [place] Chloride [Moles/Vol] 104 mmol/L 98 - 10 7 mmol/L [place] CO2 [Moles/Vol] 21 mmol/L 20 - 31 mmol/L [place] Creatinine [Mass/Vol] 0.53 mg/dL 0.5 - 0.9 mg/dL [place] GFR >60 >60 mL/min [place], [place] GFR Non- >60 >60 mL/min [place] Glucose [Mass/Vol] 110 mg/dL High 70 - 99 mg/dL [place] Interpretation and review of laboratory results Abnormal [place] Potassium [Moles/Vol] 3.7 mmol/L 3.7 - 5.3 mmol/L [place] Protein [Mass/Vol] 6.4 g/dL 6.4 - 8.3 g/dL [place] Sodium [Moles/Vol] 137 mmol/L 135 - 144 mmol/L [place] Urea nitrogen [Mass/Vol] 5 mg/dL Low 6 - 20 mg/dL [place] Metabolic Panelon 02-26-2020 GFR/1.73 sq M predicted among non-blacks MDRD (S/P/Bld) [Vol rate/Area] [place] Comment on above: Average GFR for 20-2 9 years old: 116 mL/min/1.73sq m Chronic Kidney Disease: <60 mL/min/1.73sq m Kidney failure: <15 mL/min/1.73sq m eGFR calculated using average adult body mass. Additional eGFR calculator available at: http://www.[employer]/multiple_crcl_2012.htm Stage 1: Some kidney damage normal GFR Stage 2: Mild kidney damage GFR 60-89 Stage 3: Moderate kidney damage GFR 30-59 Stage 4: Severe kidney damage GFR 15-29 Stage 5: Severe kidney damage GFR <15 ESRD - chronic treatment by dialysis or transplant Urinalysison 02-26-2020 Bilirubin Urine Negative NEGATIVE [facility] [place] Color, UA YELLOW YELLOW [place] Glucose, Ur Negative NEGATIVE [place] Ketones Ql (U) Negative NEGATIVE [place] Leukocyte esterase Test strip Ql (U) Negative NEGATIVE [place] Nitrite, Urine Negative NEGATIVE [place] pH, UA 7.0 [place] Protein (U) [Mass/Vol] Negative NEGATIVE [place] Specific [place], UA 1.020 [place], [place] Turbidity UA CLEAR CLEAR [place], [place] Urinalysis Comments NOT REPORTED [place] Urine Hgb Negative NEGATIVE [place] Urobilinogen, Urine Normal Normal [place] US GALLBLADDER RUQon 020 Status post cholecystectomy. No evidence for biliary duct dilatation. No abnormal fluid collections or ascites. [place] EXAMINATION: RIGHT UPPER QUADRANT ULTRASOUND 02/02/2020 [...] was not performed to evaluate the fetus. [place] Peyman, Mhpn Incoming Radiant Results From [employer] - 02/02/2020 9:15 AM EDT EXAMINATION: RIGHT [...] dilatation. No abnormal fluid collections or ascites. [place] Basic Metabolic Panel w/ Ref kendell to MGon 02-01-2020 Anion gap [Moles/Vol] 14 mmol/L 9 - 17 mmol/L [place] Bun/Cre Ratio 10 [place] Calcium [Mass/Vol] 9.3 mg/dL 8.6 - 10. 4 mg/dL [place] Chloride [Moles/Vol] 102 mmol/L 98 - 10 7 mmol/L [place] CO2 [Moles/Vol] 20 mmol/L 20 - 31 mmol/L [place] Creatinine [Mass/Vol] 0.49 mg/dL Low 0.5 - 0.9 mg/dL [place] GFR >60 >60 mL/min [place], [place] GFR Non- >60 >60 mL/min [place] Glucose [Mass/Vol] 152 mg/dL High 70 - 99 mg/dL [place] Interpretation and review of laboratory results Abnormal [place] Potassium [Moles/Vol] 3.5 mmol/L Low 3.7 - 5.3 mmol/L [place] Sodium [Moles/Vol] 136 mmol/L 135 - 144 mmol/L [place] Urea nitrogen [Mass/Vol] 5 mg/dL Low 6 - 20 mg/dL [place] CBC Auto Differentialon 01-21 Basophils (Bld) [#/Vol] 0.03 10*3/uL [place] Basophils/100 WBC (Bld) 0 % 0 - 2 % [place] Differential Type NOT REPORTED [place] Eosinophils (Bld) [#/Vol] 0.08 10*3/uL [place] Eosinophils/100 WBC (Bld) 1 % 1 - 4 % [place] Erythrocyte distribution width (RBC) [Ratio] 13.7 % 11.8 - 14.4 % [place] Hematocrit (Bld) [Volume fraction] 34.9 % Low 36.3 - 47.1 % [place] Hemoglobin (Bld) [Mass/Vol] 11.8 g/dL Low 11.9 - 15.1 g/dL [place] Immature granulocytes (Bld) [#/Vol] 0.09 10*3/uL [place] Immature granulocytes (Bld) [#/Vol] 1 % High 0 [place] Interpretation and review of laboratory results Abnormal [place] Lymphocytes (Bld) [#/Vol] 2.78 10*3/uL [place] Lymphocytes/100 WBC (Bld) 18 % Low 24 - 43 % [place] MCH (RBC) [Entitic mass] 31.4 pg 25.2 - 33.5 pg [place] MCHC (RBC) [Mass/Vol] 33.8 g/dL 28.4 - 34.8 g/dL [place] MCV (RBC) [Entitic vol] 92.8 fL 82.6 - 102.9 fL [place] Monocytes (Bld) [#/Vol] 0.65 10*3/uL [place] Monocytes/100 WBC (Bld) 4 % 3 - 12 % [place] Platelet mean volume (Bld) [Entitic vol] 10.5 fL 8.1 - 13.5 fL [place] Platelets (Bld) [#/Vol] NOT REPORTED [place] Platelets (Bld) [#/Vol] 273 10*3/uL [place] RBC (Bld) [#/Vol] 3.76 10*6/uL Low 3.95 - 5.1 1 m/uL [place] RBC morphology finding Nom (Bld) NOT REPORTED [place] Segmented neutrophils/100 WBC (Bld) 76 % High 36 - 65 % [place] Segs Absolute 11.78 [place] WBC (Bld) [#/Vol] 15.4 10*3/uL [place] WBC (Bld) [#/Vol] 0.0 10*3/uL 0.0 per 10 0 WBC [place] WBC Morphology NOT REPORTED [place], [place] Hepatic Function Panelon Albumin [Mass/Vol] 3.6 g/dL 3.5 - 5.2 g/dL [place] Albumin/Globulin [Mass ratio] 1.2 {ratio} [place] ALP [Catalytic activity/Vol] 70 U/L 35 - 104 U/L [place] ALT [Catalytic activity/Vol] 8 U/L 5 - 33 U/L [place] AST [Catalytic activity/Vol] 12 U/L <32 [place] Bilirubin Ql (U) 0.25 mg/dL Low 0.3 - 1.2 mg/dL [place] Bilirubin, Indirect CANNOT BE CALCULATED 0 - 1 mg/dL [place] Bilirubin.direct [Mass/Vol] mg/dL <0.31 mg/dL [place] Globulin (S) [Mass/Vol] NOT REPORTED 1.5 - 3.8 g/dL [place] Interpretation and review of laboratory results Abnormal [place] Protein [Mass/Vol] 6.7 g/dL 6.4 - 8.3 g/dL [place] Lipaseon 02-01-2020 Lipase [Catalytic activity/Vol] 51 U/L 13 - 60 U/L [place] Magnesiumon 02-01-2020 Magnesium [Mass/Vol] 1.8 mg/dL 1.6 - 2 .6 mg/dL [place] Metabolic Panelon 02-01-2020 GFR/1.73 sq M predicted among non-blacks MDRD (S/P/Bld) [Vol rate/Area] [place] Comment on above: Stage 1: Some [...] body mass. Additional eGFR calculator available at: http://www.[employer]/multiple_crcl_2012.htm Urinalysis, reflex to micros copicon 02-01-2020 Bilirubin Urine Negative NEGATIVE [place] Color, UA YELLOW YELLOW [place] Glucose, Ur Negative NEGATIVE [place] Ketones Ql (U) Negative NEGATIVE [place] Leukocyte esterase Test strip Ql (U) Negative NEGATIVE [place] Nitrite, Urine Negative NEGATIVE [place] pH, UA 6.5 [place] Protein (U) [Mass/Vol] Negative NEGATIVE [place], [place] Specific [place], UA 1.015 [place], [place] Turbidity UA CLEAR CLEAR [place], [place] Urinalysis Comments NOT REPORTED [place] Urine Hgb Negative NEGATIVE [place] Urobilinogen, Urine Normal Normal [place] CBC Auto Differentialon 12-22 Basophils (Bld) [#/Vol] 10*3/uL [place] Basophils/100 WBC (Bld) 0 % 0 - 2 % [place] Differential Type NOT REPORTED [place] Eosinophils (Bld) [#/Vol] 0.08 10*3/uL [place] Eosinophils/100 WBC (Bld) 1 % 1 - 4 % [place] Erythrocyte distribution width (RBC) [Ratio] 13.6 % 11.8 - 14.4 % [place] Hematocrit (Bld) [Volume fraction] 36.2 % Low 36.3 - 47.1 % [place] Hemoglobin (Bld) [Mass/Vol] 12.3 g/dL 11.9 - 15.1 g/dL [place] Immature granulocytes (Bld) [#/Vol] 0.05 10*3/uL [place] Immature granulocytes (Bld) [#/Vol] 0 % 0 [place] Interpretation and review of laboratory results Abnormal [place] Lymphocytes (Bld) [#/Vol] 2.92 10*3/uL [place] Lymphocytes/100 WBC (Bld) 23 % Low 24 - 43 % [place] MCH (RBC) [Entitic mass] 31.2 pg 25.2 - 33.5 pg [place] MCHC (RBC) [Mass/Vol] 34.0 g/dL 28.4 - 34.8 g/dL [place] MCV (RBC) [Entitic vol] 91.9 fL 82.6 - 102.9 fL [place] Monocytes (Bld) [#/Vol] 0.63 10*3/uL [place] Monocytes/100 WBC (Bld) 5 % 3 - 12 % [place] Platelet mean volume (Bld) [Entitic vol] 10.4 fL 8.1 - 13.5 fL [place] Platelets (Bld) [#/Vol] NOT REPORTED [place] Platelets (Bld) [#/Vol] 286 10*3/uL [place] RBC (Bld) [#/Vol] 3.94 10*6/uL Low 3.95 - 5.1 1 m/uL [place] RBC morphology finding Nom (Bld) NOT REPORTED [place] Segmented neutrophils/100 WBC (Bld) 71 % High 36 - 65 % [place] Segs Absolute 8.96 High [place] WBC (Bld) [#/Vol] 12.7 10*3/uL [place] WBC (Bld) [#/Vol] 0.0 10*3/uL 0.0 per 10 0 WBC [place] WBC Morphology NOT REPORTED [place], [place] Comprehensive Metabolic Pane l w/ Reflex to MGon 01-10-2020 Albumin [Mass/Vol] 3.6 g/dL 3.5 - 5.2 g/dL [place] Albumin/Globulin [Mass ratio] 1.1 {ratio} [place] ALP [Catalytic activity/Vol] 59 U/L 35 - 104 U/L [place] ALT [Catalytic activity/Vol] 13 U/L 5 - 33 U/L [place] Anion gap [Moles/Vol] 15 mmol/L 9 - 17 mmol/L [place] AST [Catalytic activity/Vol] 24 U/L <32 [place] Bilirubin Ql (U) 0.30 mg/dL 0.3 - 1.2 mg/dL [place] Bun/Cre Ratio 13 [place] Calcium [Mass/Vol] 9.4 mg/dL 8.6 - 10. 4 mg/dL [place] Chloride [Moles/Vol] 102 mmol/L 98 - 10 7 mmol/L [place] CO2 [Moles/Vol] 20 mmol/L 20 - 31 mmol/L [place] Creatinine [Mass/Vol] 0.48 mg/dL Low 0.5 - 0.9 mg/dL [place] GFR >60 >60 mL/min [place], [place] GFR Non- >60 >60 mL/min [place] Glucose [Mass/Vol] 89 mg/dL 70 - 99 mg/dL [place] Interpretation and review of laboratory results Abnormal [place] Potassium [Moles/Vol] 4.2 mmol/L 3.7 - 5.3 mmol/L [place] Protein [Mass/Vol] 7.0 g/dL 6.4 - 8.3 g/dL [place] Sodium [Moles/Vol] 137 mmol/L 135 - 144 mmol/L [place] Urea nitrogen [Mass/Vol] 6 mg/dL 6 - 20 mg/dL [place] Lipaseon 01-10-2020 Lipase [Catalytic activity/Vol] 51 U/L 13 - 60 U/L [place] Metabolic Panelon 01-10-2020 GFR/1.73 sq M predicted among non-blacks MDRD (S/P/Bld) [Vol rate/Area] [place] Comment on above: Average GFR for 20-2 9 years old: 116 mL/min/1.73sq m Chronic Kidney Disease: <60 mL/min/1.73sq m Kidney failure: <15 mL/min/1.73sq m eGFR calculated using average adult body mass. Additional eGFR calculator available at: http://www.[employer]/multiple_crcl_2012.htm Stage 1: Some kidney damage normal GFR Stage 2: Mild kidney damage GFR 60-89 Stage 3: Moderate kidney damage GFR 30-59 Stage 4: Severe kidney damage GFR 15-29 Stage 5: Severe kidney damage GFR <15 ESRD - chronic treatment by dialysis or transplant Microscopic Urinalysison Amorphous, UA TRACE Abnormal None [place] Bacteria, UA TRACE Abnormal None [place], [place] Casts UA NOT REPORTED /LPF [place] Crystals, UA NOT REPORTED None /HPF [place] Epithelial Cells UA 20 TO 50 [place] Interpretation and review of laboratory results Abnormal [place] Mucus, UA NOT REPORTED None [place], [place] Other Observations UA NOT REPORTED NOT REQ. [place] RBC (U) [#/Vol] 0 TO 2 [place], [place] Renal Epithelial, UA NOT REPORTED 0 /HPF [facility], [place] Trichomonas, UA PRESENCE NOTED Abnormal None [place] WBC, UA 5 TO 10 [place] Yeast, UA NOT REPORTED None [place] - [place] Urinalysis, reflex to micros copicon 01-10-2020 Bilirubin Urine Negative NEGATIVE [facility] [place] Color, UA YELLOW YELLOW [place] Glucose, Ur Negative NEGATIVE [place] Interpretation and review of laboratory results Abnormal [place] Ketones Ql (U) Negative NEGATIVE [place] Leukocyte esterase Test strip Ql (U) TRACE Abnormal NEGATIVE [place] Nitrite, Urine Negative NEGATIVE [place] pH, UA 7.0 [place] Protein (U) [Mass/Vol] Negative NEGATIVE [place] Specific [place], UA 1.020 [place], [place] Turbidity UA SLIGHTLY CLOUDY Abnormal CLEAR [place], [place] Urinalysis Comments NOT REPORTED [place] Urine Hgb Negative NEGATIVE [place] Urobilinogen, Urine Normal Normal [place] Echo 2D w doppler w color co mpleteon 12-30-2019 [facility] Transthoracic Echocardiography Report (TTE) Patient Name NATHAN Date of Study 12/30/2019 GAEL Al Date of 1995 Gender Female Age 24 year(s) Race Room Number Height: 68 inch, 172.72 cm Corporate ID [id number] Weight: 252 pounds, 114.3 kg # Patient Acct [id number] BSA: 2.25 m^2 BMI: 38.32 # kg/m^2 MR # [id number] Clinical Trial Coordinator Darlene Werner Interpreting Physician Silvio Gr Fellow Referring Nurse Practitioner Interpreting Referring Physician Silvio Gr Fellow Type of Study TTE procedure:2D Echocardiogram, M-Mode, Doppler, Color Doppler. Procedure Date Date: 12/30/2019 Start: 11:59 AM Study Location: [facility] Indications:Tachycardi a. History / Tech. Comments: Tachycardia PMHX: HTN [...] Wall E' velocity:0.21 m/s Lateral Wall E/E':3.45 [facility] [place], [place], [facility] Incoming Cardio Results From [facility] - 12/30/2019 5:53 PM EDT [facility] Transthoracic Echocardiography Report (TTE) Patient Name NATHAN Date of Study 12/30/2019 GAEL Al Date of 1995 Gender Female Age 24 year(s) Race Room Number Height: 68 inch, 172.72 cm Corporate ID [id number] Weight: 252 pounds, 114.3 kg # Patient Acct [id number] BSA: 2.25 m^2 BMI: 38.32 # kg/m^2 MR # [id number] Clinical Trial Coordinator Darlene Werner Interpreting Physician Silvio Gr Referring Nurse Practitioner Interpreting Referring Physician Silvio Gr Type of Study TTE procedure:2D Echocardiogram, M-Mode, Doppler, Color Doppler. Procedure Date Date: 12/30/2019 Start: 11:59 AM Study Location: [facility] Indications:Tachycardi a. History / Tech. Comments: Tachycardia PMHX: HTN [...] tachycardia was identified from this study. Signature --------- - --------- - --------- - --------- - FINDINGS Left Atrium Left atrium is [...] Wall E' velocity:0.21 m/s Lateral Wall E/E':3.45 [place] BUNon 12-18-2019 Urea nitrogen [Mass/Vol] 6 mg/dL 6 - 20 mg/dL [place] Creatinine Clearanceon 12-17 Creatinine [Mass/Vol] 114.5 mg/dL 28 - 2 17 mg/dL [place] Creatinine [Mass/Vol] 0.49 mg/dL Low 0.5 - 0.9 mg/dL [place] Creatinine Clearance 234.3 High [place], [place] Interpretation and review of laboratory results Abnormal [place] Length Of Collection 24 h [place], [place] Patient Height 173 cm [place], [place] Volume 1725 mL [place] Creatinine, Serumon 12-18-19 20 Creatinine [Mass/Vol] 0.48 mg/dL Low 0.5 - 0.9 mg/dL [place] GFR >60 >60 mL/min [place], [place] GFR Non- >60 >60 mL/min [place] Interpretation and review of laboratory results Abnormal [place] Creatinine, urine, timedon 0 12-18-2019 Creatinine Timed Ur NOT REPORTED mg/ X h [place], [place] Creatinine, 24H Ur 1997 High [place] Creatinine, Ur 115.8 mg/dL [place] Metabolic Panelon 12-18-2019 GFR/1.73 sq M predicted among non-blacks MDRD (S/P/Bld) [Vol rate/Area] [place] Comment on above: Average GFR for 20-2 9 years old: 116 mL/min/1.73sq m Chronic Kidney Disease: <60 mL/min/1.73sq m Kidney failure: <15 mL/min/1.73sq m eGFR calculated using average adult body mass. Additional eGFR calculator available at: http://www.[employer]Flow.Piqqual/multiple_crcl_2012.htm Stage 1: Some kidney damage normal GFR Stage 2: Mild kidney damage GFR 60-89 Stage 3: Moderate kidney damage GFR 30-59 Stage 4: Severe kidney damage GFR 15-29 Stage 5: Severe kidney damage GFR <15 ESRD - chronic treatment by dialysis or transplant Otheron 12-18-2019 Hours Collected 24 h [place] Interpretation and review of laboratory results Abnormal [place] Volume 1725 mL [place] Protein, urine, timedon 11-22 Protein (U) [Mass/Vol] NOT REPORTED mg/X h [place] Protein (U) [Mass/Vol] 30 mg/dL [place] Protein (U) [Mass/Vol] 518 mg/dL High <151 mg/24 h [place] ABO, External Resulton 11-22 ABO, External Result B [place], [place] C. Trachomatis, External Res ulton 11-23-2019 C. Trachomatis, External Result Negative [place] HIV, External Resulton 11-22 HIV, External Result non reactive [place] Hepatitis B, External Result on 11-23-2019 Hep B, External Result Negative [place] Hepatitis C Antibody, Water Quality Analyst al Resulton 11-23-2019 Hepatitis C Antibody, External Result non reactive [place] N. Gonorrhoeae, External Res ulton 11-23-2019 N. Gonorrhoeae, External Result Negative [place] Otheron 11-23-2019 Labs verified by Macy Casas RN and Kael Haas RN [place] RPR, External Labon 11-23-19 20 RPR, External Result non reactive [place] Rh Factor, External Resulton 11-23-2019 Rh Factor, External Result Positive [place] Rubella Titer, External Resu lton 11-23-2019 Rubella Titer, External Result NONIMMUNE [place] CBC Auto DifferentialOrdered By: Rod Conte on 09-24-2019 Absolute Eos # 0.14 [employer] [facility] Work Phone: Absolute Immature Granulocyte 0.03 [place] Work Phone: Absolute Lymph # 3.05 [facility] Work Phone: Absolute [place] # 0.61 [facility] [facility] Work Phone: Basophils (Bld) [#/Vol] 0.05 10*3/uL [place] Work Phone: Basophils/100 WBC (Bld) 0 % 0 - 2 % [employer] Phone: Differential Type NOT REPORTED [employer] Phone: Eosinophils/100 WBC (Bld) 1 % 1 - 4 % [employer] Phone: Erythrocyte distribution width (RBC) [Ratio] 12.8 % 11.8 - 14.4 % [employer] Phone: Hematocrit (Bld) [Volume fraction] 44.3 % 36.3 - 47.1 % [employer] Phone: Hemoglobin (Bld) [Mass/Vol] 14.7 g/dL 11.9 - 15.1 g/dL [employer] Phone: Immature granulocytes/100 WBC (Bld) 0 % 0 [employer] Phone: Interpretation and review of laboratory results Abnormal [employer] Phone: Lymphocytes/100 WBC (Bld) 26 % 24 - 43 % [employer] Phone: MCH (RBC) [Entitic mass] 30.0 pg 25.2 - 33.5 pg [employer] Phone: MCHC (RBC) [Mass/Vol] 33.2 g/dL 28.4 - 34.8 g/dL [employer] Phone: MCV (RBC) [Entitic vol] 90.4 fL 82.6 - 102.9 fL [employer] Work Phone: Monocytes/100 WBC (Bld) 5 % 3 - 12 % [employer] Work Phone: NRBC Automated 0.0 0.0 per 100 WBC [employer] Phone: Platelet Estimate NOT REPORTED [employer] Phone: Platelet mean volume (Bld) [Entitic vol] 10.6 fL 8.1 - 13.5 fL [employer] Work Phone: Platelets (Bld) [#/Vol] 314 10*3/uL [employer] Work Phone: RBC (Bld) [#/Vol] 4.90 10*6/uL 3.95 - 5.1 1 m/uL [employer] Phone: RBC morphology finding Nom (Bld) NOT REPORTED [facility] Work Phone: Segmented neutrophils/100 WBC (Bld) 68 % High 36 - 65 % [employer] Work Phone: Segs Absolute 7.[address] [email or web address] Work Phone: WBC (Bld) [#/Vol] 11.7 10*3/uL High [place] Work Phone: WBC Morphology NOT REPORTED [employer] [facility] Work Phone: Comprehensive Metabolic Pane l w/ Reflex to MGOrdered By: Rod Conte on 09-24-2019 Albumin [Mass/Vol] 4.3 g/dL 3.5 - 5.2 g/dL [employer] Phone: Albumin/Globulin [Mass ratio] 1.3 {ratio} [employer] Phone: ALP [Catalytic activity/Vol] 92 U/L 35 - 104 U/L [facility] Work Phone: ALT [Catalytic activity/Vol] 32 U/L 5 - 33 U/L [employer] Work Phone: Anion gap [Moles/Vol] 14 mmol/L 9 - 17 mmol/L [employer] Phone: AST [Catalytic activity/Vol] 28 U/L <32 [employer] Phone: Bilirubin [Mass/Vol] 0.40 mg/dL 0.3 - 1 .2 mg/dL [employer] Phone: Bun/Cre Ratio 14 [email or web address] Work Phone: Calcium [Mass/Vol] 9.8 mg/dL 8.6 - 10. 4 mg/dL [employer] Phone: Chloride [Moles/Vol] 100 mmol/L 98 - 10 7 mmol/L [employer] Phone: CO2 [Moles/Vol] 24 mmol/L 20 - 31 mmol/L [employer] Phone: Creatinine [Mass/Vol] 0.63 mg/dL 0.5 - 0.9 mg/dL [employer] Phone: GFR >60 >60 mL/min [employer] Phone: GFR Comment [employer] Phone: Comment on above: Average GFR for 20-2 9 years old: 116 mL/min/1.73sq m Chronic Kidney Disease: <60 mL/min/1.73sq m Kidney failure: <15 mL/min/1.73sq m eGFR calculated using average adult body mass. Additional eGFR calculator available at: http://www.SigmaFlow.Piqqual/multiple_crcl_2012.htm GFR Non- >60 >60 mL/min [employer] Phone: GFR Staging [employer] Phone: Comment on above: Stage 1: Some kidney damage normal GFR Stage 2: Mild kidney damage GFR 60-89 Stage 3: Moderate kidney damage GFR 30-59 Stage 4: Severe kidney damage GFR 15-29 Stage 5: Severe kidney damage GFR <15 ESRD - chronic treatment by dialysis or transplant Glucose [Mass/Vol] 206 mg/dL High 70 - 99 mg/dL [employer] Phone: Interpretation and review of laboratory results Abnormal [employer] Phone: Potassium [Moles/Vol] 4.0 mmol/L 3.7 - 5.3 mmol/L [employer] Phone: Protein [Mass/Vol] 7.7 g/dL 6.4 - 8.3 g/dL [employer] Phone: Sodium [Moles/Vol] 138 mmol/L 135 - 144 mmol/L [employer] Phone: Urea nitrogen [Mass/Vol] 9 mg/dL 6 - 20 mg/dL [employer] Phone: HCG Qualitative, SerumOrdere d By: Rod Conte on 09-24-2019 hCG Qual Positive Abnormal NEGATIVE [employer] Phone: Comment on above: If HCG results do not concur with clinical observations, additional testing to confirm result is recommended. This test is not labeled for use as a tumor marker. [employer] has confirmed the use of plasma for this test. This has not been cleared or approved by the U.S. Food and Drug Administration. The FDA has determined that such clearance is not necessary. Interpretation and review of laboratory results Abnormal [employer] Phone: LipaseOrdered By: Rod gomez on 09-24-2019 Lipase [Catalytic activity/Vol] 49 U/L 13 - 60 U/L [employer] Phone: Rapid influenza A/B antigens Ordered By: Rod Conte on 09-24-2019 Direct Exam Presumptive negative for the presence of Influenza A and Influenza B antigen. PCR confirmation of negative results is recommended, since the antigen present in the specimen may be below the detection limit of the test. [employer] Phone: Special Requests NOT REPORTED [employer] Phone: Specimen Description .NASOPHARYNGEAL SWAB [employer] Phone: XR CHEST STANDARD (2 VW)Orde red By: Rod Inés on 09-24-2019 Increased density le ft retrocardiac region likely a confluence of vascular shadows or atelectasis There is no consolidation to suggest pneumonia. [employer] Phone: EXAMINATION: TWO XRA Y VIEWS OF THE CHEST 09/24/2019 8:33 pm COMPARISON: December 04, 2018 HISTORY: ORDERING SYSTEM PROVIDED HISTORY: cough TECHNOLOGIST PROVIDED HISTORY: cough FINDINGS: There is a small amount of increased density in the left retrocardiac region. There is no corresponding opacity on the lateral view. There is no consolidation otherwise. There is no pneumothorax. [employer] Phone: [place], [facility] Incoming Radiant Results From [employer] - 09/24/2019 8:46 PM EST EXAMINATION: TWO [...] There is no consolidation to suggest pneumonia. [employer] Phone: CT ABDOMEN PELVIS W IV CONTR [place] 07-29-2019 The appendix is normal. A 2.8 cm right ovarian cyst is suspected. There is a history of PCOS. Diffuse fatty infiltration of the liver. RECOMMENDATIONS: 2.8 cm benign appearing ovarian cyst. No follow-up imaging is recommended. Reference: J Am Enrique Radiol 2013;10:675-681 [facility]- [place], [facility] Incoming Radiant Results From [employer] - 07/29/2019 1:00 AM EST EXAMINATION: CT [...] ovary are unremarkable. Urinary bladder is unremarkable. Peritoneum/Retroperito neum: There is no adenopathy, free air or free fluid. Bones/Soft Tissues: No acute bone finding. Obesity. IMPRESSION: The appendix is normal. A 2.8 cm right ovarian cyst is suspected. There is a history of PCOS. Diffuse fatty infiltration of the liver. RECOMMENDATIONS: 2.8 cm benign appearing ovarian cyst. No follow-up imaging is recommended. Reference: J Am Enrique Radiol 2013;10:675-681 [place] EXAMINATION: CT OF T ABDOMEN AND PELVIS WITH CONTRAST 07/29/2019 12:19 [...] ovary are unremarkable. Urinary bladder is unremarkable. Peritoneum/Retroperito neum: There is no adenopathy, free air or free fluid. Bones/Soft Tissues: No acute bone finding. Obesity. [place] Comprehensive Metabolic Pane l w/ Reflex to MGon 07-29-2019 Albumin [Mass/Vol] 4.2 g/dL 3.5 - 5.2 g/dL [place] Albumin/Globulin [Mass ratio] 1.1 {ratio} [place] ALP [Catalytic activity/Vol] 88 U/L 35 - 104 U/L [place] ALT [Catalytic activity/Vol] 35 U/L High 5 - 33 U/L [place] Anion gap [Moles/Vol] 14 mmol/L 9 - 17 mmol/L [place] AST [Catalytic activity/Vol] 38 U/L High <32 [place] Bilirubin Ql (U) 0.33 mg/dL 0.3 - 1.2 mg/dL [place] Bun/Cre Ratio 9 [place] Calcium [Mass/Vol] 9.5 mg/dL 8.6 - 10. 4 mg/dL [place] Chloride [Moles/Vol] 98 mmol/L 98 - 10 7 mmol/L [place] CO2 [Moles/Vol] 23 mmol/L 20 - 31 mmol/L [place] Creatinine [Mass/Vol] 0.74 mg/dL 0.5 - 0.9 mg/dL [place] GFR >60 >60 mL/min [place] GFR Non- >60 >60 mL/min [place] Glucose [Mass/Vol] 267 mg/dL High 70 - 99 mg/dL [place] Interpretation and review of laboratory results Abnormal [place] Potassium [Moles/Vol] 3.8 mmol/L 3.7 - 5.3 mmol/L [place] Protein [Mass/Vol] 7.9 g/dL 6.4 - 8.3 g/dL [place] Sodium [Moles/Vol] 135 mmol/L 135 - 144 mmol/L [place] Urea nitrogen [Mass/Vol] 7 mg/dL 6 - 20 mg/dL [place] Lactic Acidon 07-29-2019 Lactate [Moles/Vol] 2.2 mmol/L 0.5 - 2. 2 mmol/L [place] Lipaseon 07-29-2019 Lipase [Catalytic activity/Vol] 60 U/L 13 - 60 U/L [place] Metabolic Panelon 07-29-2019 GFR/1.73 sq M predicted among non-blacks MDRD (S/P/Bld) [Vol rate/Area] [place] Comment on above: Average GFR for 20-2 9 years old: 116 mL/min/1.73sq m Chronic Kidney Disease: <60 mL/min/1.73sq m Kidney failure: <15 mL/min/1.73sq m eGFR calculated using average adult body mass. Additional eGFR calculator available at: http://www.[employer]/multiple_crcl_2012.htm Stage 1: Some kidney damage normal GFR Stage 2: Mild kidney damage GFR 60-89 Stage 3: Moderate kidney damage GFR 30-59 Stage 4: Severe kidney damage GFR 15-29 Stage 5: Severe kidney damage GFR <15 ESRD - chronic treatment by dialysis or transplant APTTon 07-28-2019 aPTT Coag (Bld) [Time] 25.0 s [place] CBC Auto Differentialon Basophils (Bld) [#/Vol] 0.03 10*3/uL [place] Basophils/100 WBC (Bld) 0 % 0 - 2 % [place] Differential Type NOT REPORTED [place] Eosinophils (Bld) [#/Vol] 0.14 10*3/uL [place] Eosinophils/100 WBC (Bld) 1 % 1 - 4 % [place] Erythrocyte distribution width (RBC) [Ratio] 12.4 % 11.8 - 14.4 % [place] Hematocrit (Bld) [Volume fraction] 43.7 % 36.3 - 47.1 % [place] Hemoglobin (Bld) [Mass/Vol] 14.4 g/dL 11.9 - 15.1 g/dL [place] Immature granulocytes (Bld) [#/Vol] 0 % 0 [place] Immature granulocytes (Bld) [#/Vol] 0.04 10*3/uL [place] Lymphocytes (Bld) [#/Vol] 3.00 10*3/uL [place] Lymphocytes/100 WBC (Bld) 28 % 24 - 43 % [place] MCH (RBC) [Entitic mass] 29.9 pg 25.2 - 33.5 pg [place] MCHC (RBC) [Mass/Vol] 33.0 g/dL 28.4 - 34.8 g/dL [place] MCV (RBC) [Entitic vol] 90.9 fL 82.6 - 102.9 fL [place] Monocytes (Bld) [#/Vol] 0.58 10*3/uL [place] Monocytes/100 WBC (Bld) 5 % 3 - 12 % [place] Platelet mean volume (Bld) [Entitic vol] 10.8 fL 8.1 - 13.5 fL [place] Platelets (Bld) [#/Vol] NOT REPORTED [place] Platelets (Bld) [#/Vol] 291 10*3/uL [place] RBC (Bld) [#/Vol] 4.81 10*6/uL 3.95 - 5.1 1 m/uL [place] RBC morphology finding Nom (Bld) NOT REPORTED [place] Segmented neutrophils/100 WBC (Bld) 65 % 36 - 65 % [place] Segs Absolute 6.97 [place] WBC (Bld) [#/Vol] 0.0 10*3/uL 0.0 per 10 0 WBC [place] WBC (Bld) [#/Vol] 10.8 10*3/uL [place] WBC Morphology NOT REPORTED [place], [place] HCG Qualitative, Serumon hCG Qual Negative NEGATIVE [place] Comment on above: Specimens with hCG l evels near the threshold of the test (25 mIU/mL) may give a negative or indeterminate result. In such cases, another test should be performed with a new specimen in 48-72 hours. If early is suspected clinically in this setting, correlation with quantitative serum b-hCG level is suggested. [facility] [email or web address] has confirmed the use of plasma for this test. This has not been cleared or approved by the U.S. Food and Drug Administration. The FDA has determined that such clearance is not necessary. Microscopic Urinalysison Amorphous, UA NOT REPORTED None [place] Bacteria, UA NOT REPORTED None [place] Casts UA NOT REPORTED /LPF [place] Crystals UA NOT REPORTED None /HPF [place] Epithelial Cells UA 2 TO 5 [place] Interpretation and review of laboratory results Abnormal [place] Mucus, UA 2+ Abnormal None [place] Other Observations UA NOT REPORTED NOT REQ. [place] RBC (U) [#/Vol] 0 TO 2 [place] Renal Epithelial, Urine NOT REPORTED 0 /HPF [place] Trichomonas, UA NOT REPORTED None [facility] [place] WBC, UA 2 TO 5 [place] Yeast, UA NOT REPORTED None [place] - [place] Protime-INRon 07-28-2019 INR Coag (PPP) [Relative time] 1.0 {INR} [place] PT Coag (PPP) [Time] 10.1 s [place] Urinalysis, reflex to micros copicon 07-28-2019 Bilirubin Urine Negative NEGATIVE [place] Color, UA YELLOW YELLOW [place] Glucose, Ur TRACE Abnormal NEGATIVE [place] Interpretation and review of laboratory results Abnormal [place] Ketones Ql (U) Negative NEGATIVE [place] Leukocyte esterase Test strip Ql (U) Negative NEGATIVE [place] Nitrite, Urine Negative NEGATIVE [place] pH, UA 5.5 [place] Protein (U) [Mass/Vol] TRACE Abnormal NEGATIVE [place] Specific [place], UA >1.030 High [place], [place] Turbidity UA CLEAR CLEAR [place], [place] Urinalysis Comments NOT REPORTED [place] Urine Hgb Negative NEGATIVE [place] Urobilinogen, Urine Normal Normal [place] CBC Auto Differentialon Basophils (Bld) [#/Vol] 0.03 10*3/uL [place] Basophils/100 WBC (Bld) 0 % 0 - 2 % [place] Differential Type NOT REPORTED [place] Eosinophils (Bld) [#/Vol] 0.18 10*3/uL [place] Eosinophils/100 WBC (Bld) 2 % 1 - 4 % [place] Erythrocyte distribution width (RBC) [Ratio] 12.9 % 11.8 - 14.4 % [place] Hematocrit (Bld) [Volume fraction] 40.8 % 36.3 - 47.1 % [place] Hemoglobin (Bld) [Mass/Vol] 13.5 g/dL 11.9 - 15.1 g/dL [place] Immature granulocytes (Bld) [#/Vol] 1 % High 0 [place] Immature granulocytes (Bld) [#/Vol] 0.06 10*3/uL [place] Interpretation and review of laboratory results Abnormal [place] Lymphocytes (Bld) [#/Vol] 3.21 10*3/uL [place] Lymphocytes/100 WBC (Bld) 35 % 24 - 43 % [place] MCH (RBC) [Entitic mass] 30.1 pg 25.2 - 33.5 pg [place] MCHC (RBC) [Mass/Vol] 33.1 g/dL 28.4 - 34.8 g/dL [place] MCV (RBC) [Entitic vol] 90.9 fL 82.6 - 102.9 fL [place] Monocytes (Bld) [#/Vol] 0.47 10*3/uL [place] Monocytes/100 WBC (Bld) 5 % 3 - 12 % [place] Platelet mean volume (Bld) [Entitic vol] 10.4 fL 8.1 - 13.5 fL [place] Platelets (Bld) [#/Vol] NOT REPORTED [place] Platelets (Bld) [#/Vol] 337 10*3/uL [place] RBC (Bld) [#/Vol] 4.49 10*6/uL 3.95 - 5.1 1 m/uL [place] RBC morphology finding Nom (Bld) NOT REPORTED [place] Segmented neutrophils/100 WBC (Bld) 57 % 36 - 65 % [place] Segs Absolute 5.25 [place] WBC (Bld) [#/Vol] 9.2 10*3/uL [place] WBC (Bld) [#/Vol] 0.0 10*3/uL 0.0 per 10 0 WBC [place] WBC Morphology NOT REPORTED [place] Comprehensive Metabolic Pane l w/ Reflex to MGon 05-25-2019 Albumin [Mass/Vol] 4 g/dL 3.5 - 5.2 g/dL [place] Albumin/Globulin [Mass ratio] 1.1 {ratio} [place] ALP [Catalytic activity/Vol] 84 U/L 35 - 104 U/L [place] ALT [Catalytic activity/Vol] 34 U/L High 5 - 33 U/L [place] Anion gap [Moles/Vol] 14 mmol/L 9 - 17 mmol/L [place] AST [Catalytic activity/Vol] 35 U/L High <32 [place] Bilirubin Ql (U) 0.26 mg/dL Low 0.3 - 1.2 mg/dL [place] Bun/Cre Ratio 14 [place] Calcium [Mass/Vol] 9.7 mg/dL 8.6 - 10. 4 mg/dL [place] Chloride [Moles/Vol] 103 mmol/L 98 - 10 7 mmol/L [place] CO2 [Moles/Vol] 22 mmol/L 20 - 31 mmol/L [place] Creatinine [Mass/Vol] 0.7 mg/dL 0.5 - 0.9 mg/dL [place] GFR >60 >60 mL/min [place] GFR Non- >60 >60 mL/min [place] Glucose [Mass/Vol] 313 mg/dL High 70 - 99 mg/dL [place] Potassium [Moles/Vol] 4.1 mmol/L 3.7 - 5.3 mmol/L [place] Protein [Mass/Vol] 7.6 g/dL 6.4 - 8.3 g/dL [place] Sodium [Moles/Vol] 139 mmol/L 135 - 144 mmol/L [place] Urea nitrogen [Mass/Vol] 10 mg/dL 6 - 20 mg/dL [place] Lipaseon 05-25-2019 Lipase [Catalytic activity/Vol] 75 U/L High 13 - 60 U/L [place] Metabolic Panelon 05-25-2019 GFR/1.73 sq M predicted among non-blacks MDRD (S/P/Bld) [Vol rate/Area] [place] Comment on above: Average GFR for 20-2 9 years old: 116 mL/min/1.73sq m Chronic Kidney Disease: <60 mL/min/1.73sq m Kidney failure: <15 mL/min/1.73sq m eGFR calculated using average adult body mass. Additional eGFR calculator available at: http://www.[employer]/multiple_crcl_2011.htm Stage 1: Some kidney damage normal GFR Stage 2: Mild kidney damage GFR 60-89 Stage 3: Moderate kidney damage GFR 30-59 Stage 4: Severe kidney damage GFR 15-29 Stage 5: Severe kidney damage GFR <15 ESRD - chronic treatment by dialysis or transplant Microscopic Urinalysison Amorphous, UA NOT REPORTED None [facility], [place] Bacteria, UA NOT REPORTED None [facility], [place] Casts UA NOT REPORTED /LPF [facility], [place] Crystals UA NOT REPORTED None /HPF [facility] [place] [place] Epithelial Cells UA 0 TO 2 [facility], [place] Mucus, UA NOT REPORTED None [facility], [place] Other Observations UA NOT REPORTED NOT REQ. [place] RBC (U) [#/Vol] 0 TO 2 [facility], [place] Renal Epithelial, Urine NOT REPORTED 0 /HPF [place] Trichomonas, UA NOT REPORTED None [facility] [place] WBC, UA 2 TO 5 [facility], [place] Yeast, UA NOT REPORTED None [facility], [place] Otheron 05-25-2019 Interpretation and review of laboratory results Abnormal [place] , Urineon 9 Beta HCG ( test) Ql (U) Negative NEGATIVE [place] Comment on above: Specimens with hCG l evels near the threshold of the test (25 mIU/mL) may give a negative or indeterminate result. In such cases, another test should be performed with a new specimen in 48-72 hours. If early is suspected clinically in this setting, correlation with quantitative serum b-hCG level is suggested. [employer] has confirmed the use of plasma for this test. This has not been cleared or approved by the U.S. Food and Drug Administration. The FDA has determined that such clearance is not necessary. Urinalysis, reflex to micros copicon 05-25-2019 Bilirubin Urine Negative NEGATIVE [facility], [place] Color, UA YELLOW YELLOW [place] Glucose, Ur 2+ Abnormal NEGATIVE [place] Interpretation and review of laboratory results Abnormal [place] Ketones Ql (U) Negative NEGATIVE [place] Leukocyte esterase Test strip Ql (U) Negative NEGATIVE [facility] [place] Nitrite, Urine Negative NEGATIVE [facility] [place] pH, UA 6.0 [facility] [place] Protein (U) [Mass/Vol] TRACE Abnormal NEGATIVE [facility] [place] Specific [place], UA 1.025 [facility] [place] Turbidity UA CLEAR CLEAR [facility] [place] Urinalysis Comments NOT REPORTED [facility] [place] Urine Hgb 3+ Abnormal NEGATIVE [facility] [place] Urobilinogen, Urine Normal Normal [facility] [place] VL DUP LOWER EXTREMITY VENOU S RIGHTon 05-19-2019 [facility] [place] [facility] Lower Extremities DVT Study Procedure Patient Name NATHAN Date of Study 05/19/2019 GAEL Al Date of 1995 Gender Female Age 23 year(s) Race Room Number Corporate ID # [id number] Patient MR # [id number] Clinical Trial Coordinator NGA Fatima Interpreting Physician Arik Krueger MD Referring Referring Physician Rod Conte Nurse Practitioner Additional Comments Copy to Dr. Yossi Chavis . Procedure Type of Study: Veins: Lower Extremities DVT Study, Venous Scan Lower Right. Patient Status:Out Patient. Technical Quality:Adequate visualization. Comments:INDICATIONS: Right leg pain Conclusions Summary No evidence of superficial or deep venous thrombosis in the right lower extremity. Signature Findings: Right Impression: Left Impression: The common [...] DVT Study Measurements Right 2D Measurements + +------ ----+ +- ---------+ !Location !Visualized!Compressib ility!Thrombosis! + +------ ----+ +- ---------+ !Common Femoral !Yes !Yes !None ! + +------ ----+ +- ---------+ !Prox Femoral !Yes !Yes !None ! + +------ ----+ +- ---------+ !Mid Femoral !Yes !Yes !None ! + +------ ----+ +- ---------+ !Dist Femoral !Yes !Yes !None ! + +------ ----+ +- ---------+ !Deep Femoral !Yes !Yes !None ! + +------ ----+ +- ---------+ !Popliteal !Yes !Yes !None ! + +------ ----+ +- ---------+ !Sapheno Femoral Junction !Yes !Yes !None ! + +------ ----+ +- ---------+ !PTV !Yes !Yes !None ! + +------ ----+ +- ---------+ !Peroneal !Yes !Yes !None ! + +------ ----+ +- ---------+ !Gastroc !Yes !Yes !None ! + +------ ----+ +- ---------+ !GSV Thigh !Yes !Yes !None ! + +------ ----+ +- ---------+ !GSV Knee !Yes !Yes !None ! + +------ ----+ +- ---------+ !GSV Ankle !Yes !Yes !None ! + +------ ----+ +- ---------+ !SSV !Yes !Yes !None ! + +------ ----+ +- ---------+ Right Doppler Measurements + ------+------+------+- ---------+ !Location !Signal!Reflux!Reflux (msec) ! + ------+------+------+- ---------+ !Common Femoral !Phasic!No ! ! + ------+------+------+- ---------+ !Prox Femoral !Phasic!No ! ! + ------+------+------+- ---------+ !Popliteal !Phasic!No ! ! + ------+------+------+- ---------+ Left Lower Extremities DVT Study Measurements Left 2D Measurements + +------ ----+ +- ---------+ !Location !Visualized!Compressib ility!Thrombosis! + +------ ----+ +- ---------+ !Common Femoral !Yes !Yes !None ! + +------ ----+ +- ---------+ Left Doppler Measurements + -------+------+------+ ---------+ !Location !Signal!Reflux!Reflux (msec) ! + -------+------+------+ ---------+ !Common Femoral !Phasic! ! ! + -------+------+------+ ---------+ [facility] [place] Britney Morley Incoming Cardio Results From [facility] - 05/19/2019 12:32 PM EDT [facility] Vascular Lower Extremities DVT Study Procedure Patient Name NATHAN Date of Study 05/19/2019 GAEL Al Date of 1995 Gender Female Age 23 year(s) Race Room Number Corporate ID # [id number] Patient MR # [id number] Clinical Trial Coordinator NGA Fatima Interpreting Physician Arik Krueger MD Referring Referring Physician Rod Conte Nurse Practitioner Additional Comments Copy to Dr. Yossi Chavis . Procedure Type of Study: Veins: Lower Extremities DVT Study, Venous Scan Lower Right. Patient Status:Out Patient. Technical Quality:Adequate visualization. Comments:INDICATIONS: Right leg pain Conclusions Summary No evidence of superficial or deep venous thrombosis in the right lower extremity. Signature Findings: Right Impression: Left Impression: The common [...] DVT Study Measurements Right 2D Measurements + +------ ----+ +- --------- + !Location !Visualized!Compressib ility!Thrombosis! + +------ ----+ +- --------- + !Common Femoral !Yes !Yes !None ! + +------ ----+ +- --------- + !Prox Femoral !Yes !Yes !None ! + +------ ----+ +- --------- + !Mid Femoral !Yes !Yes !None ! + +------ ----+ +- --------- + !Dist Femoral !Yes !Yes !None ! + +------ ----+ +- --------- + !Deep Femoral !Yes !Yes !None ! + +------ ----+ +- --------- + !Popliteal !Yes !Yes !None ! + +------ ----+ +- --------- + !Sapheno Femoral Junction !Yes !Yes !None ! + +------ ----+ +- --------- + !PTV !Yes !Yes !None ! + +------ ----+ +- --------- + !Peroneal !Yes !Yes !None ! + +------ ----+ +- --------- + !Gastroc !Yes !Yes !None ! + +------ ----+ +- --------- + !GSV Thigh !Yes !Yes !None ! + +------ ----+ +- --------- + !GSV Knee !Yes !Yes !None ! + +------ ----+ +- --------- + !GSV Ankle !Yes !Yes !None ! + +------ ----+ +- --------- + !SSV !Yes !Yes !None ! + +------ ----+ +- --------- + Right Doppler Measurements + ------+------+------+- --------- + !Location !Signal!Reflux!Reflux (msec) ! + ------+------+------+- --------- + !Common Femoral !Phasic!No ! ! + ------+------+------+- --------- + !Prox Femoral !Phasic!No ! ! + ------+------+------+- --------- + !Popliteal !Phasic!No ! ! + ------+------+------+- --------- + Left Lower Extremities DVT Study Measurements Left 2D Measurements + +------ ----+ +- --------- + !Location !Visualized!Compressib ility!Thrombosis! + +------ ----+ +- --------- + !Common Femoral !Yes !Yes !None ! + +------ ----+ +- --------- + Left Doppler Measurements + -------+------+------+ --------- + !Location !Signal!Reflux!Reflux (msec) ! + -------+------+------+ --------- + !Common Femoral !Phasic! ! ! + -------+------+------+ --------- + [facility], [place] Vital Signs Date Time Vital Sign Value Performing Clinician Facility 02-17-2025 13:29-0400 Diastolic blood pressure 85 mm[Hg] Best Reynoso MD Work Phone: [facility] 02-17-2025 13:29-0400 Heart rate 82 /min Best Reynoso MD Work Phone: [facility] 02-17-2025 13:29-0400 Systolic blood pressure 119 mm[Hg] Best Reynoso MD Work Phone: [facility] 02-09-2025 19:14-0400 Diastolic blood pressure 76 mm[Hg] Yossi Golden MD Work Phone: [facility] 02-09-2025 19:14-0400 SaO2% (BldA) [Mass fraction] 94 % Yossi Golden MD Work Phone: [facility] 02-09-2025 19:14-0400 Systolic blood pressure 120 mm[Hg] Yossi Golden MD Work Phone: [facility] 02-09-2025 18:29-0400 Body temperature 97.9 [degF] Yossi Golden MD Work Phone: [facility] 02-09-2025 18:29-0400 Heart rate 81 /min Yossi Golden MD Work Phone: [facility] [employer] 02-09-2025 18:29-0400 Respiratory rate 16 /min Yossi Golden MD Work Phone: [facility] 02-05-2025 22:23-0400 Diastolic blood pressure 68 mm[Hg] Rod Colmenares MD Work Phone: [facility] [employer] 02-05-2025 22:23-0400 Heart rate 79 /min Rod Colmenares MD Work Phone: [facility] [employer] 02-05-2025 22:23-0400 Respiratory rate 16 /min Rod Colmenares MD Work Phone: [facility] [employer] 02-05-2025 22:23-0400 SaO2% (BldA) [Mass fraction] 100 % Rod Colmenares MD Work Phone: [facility] 02-05-2025 22:23-0400 Systolic blood pressure 114 mm[Hg] Rod Colmenares MD Work Phone: [facility] 02-05-2025 20:21-0400 Body temperature 97 [degF] Rod Colmenares MD Work Phone: [facility] 01-26-2025 03:30-0400 SaO2% (BldA) [Mass fraction] 95 % [facility] 01-26-2025 03:30-0400 Heart rate 70 /min [facility] 01-26-2025 03:30-0400 Diastolic blood pressure 62 mm[Hg] [facility] 01-26-2025 03:30-0400 Mean blood pressure 73 mm[Hg] [facility] 01-26-2025 03:30-0400 Respiratory rate 17 /min [facility] 01-26-2025 03:30-0400 Systolic blood pressure 94 mm[Hg] [facility] 01-26-2025 03:00-0400 Heart rate 69 /min [facility] 01-26-2025 03:00-0400 SaO2% (BldA) [Mass fraction] 94 % [facility] 01-26-2025 03:00-0400 Diastolic blood pressure 60 mm[Hg] [facility] 01-26-2025 03:00-0400 Mean blood pressure 74 mm[Hg] [facility] 01-26-2025 03:00-0400 Systolic blood pressure 103 mm[Hg] [facility] 01-26-2025 02:07-0400 Diastolic blood pressure 63 mm[Hg] [facility] 01-26-2025 02:07-0400 Systolic blood pressure 105 mm[Hg] [facility] 01-26-2025 02:07-0400 Heart rate 61 /min [facility] 01-26-2025 02:07-0400 Mean blood pressure 77 mm[Hg] [facility] 01-26-2025 02:07-0400 Respiratory rate 18 /min [facility] 01-26-2025 02:07-0400 SaO2% (BldA) [Mass fraction] 98 % [facility] 01-26-2025 01:04-0400 Body temperature 98.24 [degF] [facility] 01-26-2025 01:04-0400 Heart rate 92 /min [facility] 01-01-2025 01:44-0400 Body temperature 98.29 [degF] Imel[facility]yn[facility] 01-01-2025 01:00-0400 SaO2% (BldA) [Mass fraction] 96 % Imelda Huynh MD Work Phone: [email or web address] 01-01-2025 00:34-0400 Diastolic blood pressure 85 mm[Hg] Imelda Huynh MD Work Phone: [facility] [email or web address] 01-01-2025 00:34-0400 Heart rate 95 /min Imelda Huynh MD Work Phone: [facility] [email or web address] 01-01-2025 00:34-0400 Respiratory rate 18 /min Imelda Huynh MD Work Phone: [facility] [email or web address] 01-01-2025 00:34-0400 Systolic blood pressure 143 mm[Hg] Imelda Huynh MD Work Phone: [facility] [email or web address] 12-24-2024 10:55-0400 Body height 172.7 cm [facility] 1 Work Phone: [facility] 12-24-2024 10:55-0400 Body mass index (BMI) [Ratio] 37.11 kg/m2 [facility] 1 Work Phone: [facility] 12-24-2024 10:55-0400 Body temperature 97.5 [degF] [facility] 1 Work Phone: [facility] 12-24-2024 10:55-0400 Body weight 110.7 kg [facility] 1 Work Phone: [facility] 12-24-2024 10:55-0400 Diastolic blood pressure 98 mm[Hg] [facility] 1 Work Phone: [facility] 12-24-2024 10:55-0400 Heart rate 85 /min [facility] 1 Work Phone: [facility] 12-24-2024 10:55-0400 Respiratory rate 20 /min [facility] 1 Work Phone: [facility] 12-24-2024 10:55-0400 SaO2% (BldA) [Mass fraction] 98 % [facility] 1 Work Phone: [facility] 12-24-2024 10:55-0400 Systolic blood pressure 147 mm[Hg] [facility] 1 Work Phone: [facility] 12-02-2024 13:16-0400 Body height 172.7 cm Yajaira Lackey DO Work Phone: [facility] 12-02-2024 13:16-0400 Body mass index (BMI) [Ratio] 36.54 kg/m2 Yajaira Lackey DO Work Phone: [facility] 12-02-2024 13:16-0400 Body weight 109 kg Yajaira Lackey DO Work Phone: [facility] 12-02-2024 13:16-0400 Diastolic blood pressure 87 mm[Hg] Yajaira Lackey DO Work Phone: [facility] 12-02-2024 13:16-0400 Heart rate 87 /min Yajaira Lackey Work Phone: [facility] 12-02-2024 13:16-0400 Systolic blood pressure 128 mm[Hg] Yajaira Lackey DO Work Phone: [facility] 11-06-2024 08:45-0500 Body temperature 97.7 [degF] Ric Ambrose MD Work Phone: [facility] [employer] 11-06-2024 08:45-0500 Diastolic blood pressure 68 mm[Hg] Ric Ambrose MD Work Phone: [facility] [employer] 11-06-2024 08:45-0500 Heart rate 74 /min Ric Ambrose MD Work Phone: [facility] [employer] 11-06-2024 08:45-0500 Respiratory rate 18 /min Ric Ambrose MD Work Phone: [facility] [employer] 11-06-2024 08:45-0500 SaO2% (BldA) [Mass fraction] 97 % Ric Ambrose MD Work Phone: [facility] [employer] 11-06-2024 08:45-0500 Systolic blood pressure 119 mm[Hg] Ric Ambrose MD Work Phone: [facility] [employer] 11-06-2024 04:37-0500 Body mass index (BMI) [Ratio] 37.91 kg/m2 Ric Ambrose MD Work Phone: [facility] [employer] 11-06-2024 04:37-0500 Body weight 113.08 kg Ric Ambrose MD Work Phone: [facility] [employer] 11-05-2024 08:57-0500 Body height 172.7 cm Ric Ambrose MD Work Phone: [facility] [employer] 10-21-2024 10:51-0500 Respiratory rate 18 /min Kaylie Sommer DO Work Phone: [facility] [employer] 10-21-2024 09:40-0500 Body height 172.7 cm Kaylie Sommer DO Work Phone: [facility] [employer] 10-21-2024 06:45-0500 Body temperature 97 [degF] Kaylie Sommer DO Work Phone: [facility] [employer] 10-21-2024 06:45-0500 Diastolic blood pressure 77 mm[Hg] Kaylie Sommer DO Work Phone: [facility] [employer] 10-21-2024 06:45-0500 Heart rate 66 /min Kaylie Sommer DO Work Phone: [facility] [employer] 10-21-2024 06:45-0500 SaO2% (BldA) [Mass fraction] 93 % Kayile Sommer DO Work Phone: [facility] [employer] 10-21-2024 06:45-0500 Systolic blood pressure 138 mm[Hg] Kaylie Sommer DO Work Phone: [facility] [employer] 10-20-2024 15:30-0500 Body mass index (BMI) [Ratio] 36.81 kg/m2 Kaylie Sommer DO Work Phone: [facility] [employer] 10-20-2024 15:30-0500 Body weight 109.8 kg Kaylie Sommer DO [facility] 10-15-2024 19:00-0500 Diastolic blood pressure 87 mm[Hg] Cameron Conklin [facility] 10-15-2024 19:00-0500 Heart rate 97 /min Cameron Conklin [facility] 10-15-2024 19:00-0500 Mean blood pressure 101 mm[Hg] Cameron Conklin [facility] 10-15-2024 19:00-0500 Systolic blood pressure 130 mm[Hg] Cameron Conklin [facility] 10-15-2024 18:55-0500 Diastolic blood pressure 80 mm[Hg] Cameron Conklin [facility] 10-15-2024 18:55-0500 Heart rate 99 /min Cameron Conklin [facility] 10-15-2024 18:55-0500 Mean blood pressure 97 mm[Hg] Cameron Rubin [facility] 10-15-2024 18:55-0500 Respiratory rate 16 /min Cameron Rubin [facility] 10-15-2024 18:55-0500 SaO2% (BldA) [Mass fraction] 96 % Cameron Conklin [facility] 10-15-2024 18:55-0500 Systolic blood pressure 132 mm[Hg] Cameron Rubin [facility] 10-15-2024 18:03-0500 Body temperature 98.06 [degF] Cameron Rubin [facility] 10-15-2024 18:03-0500 Diastolic blood pressure 82 mm[Hg] Cameron Rubin [facility] 10-15-2024 18:03-0500 Heart rate 90 /min Cameron Rubin [facility] 10-15-2024 18:03-0500 SaO2% (BldA) [Mass fraction] 95 % Cameron Rubin [facility] 10-15-2024 18:03-0500 Systolic blood pressure 145 mm[Hg] Cameron Rubin [facility] 10-13-2024 13:37-0500 Blood Pressure Location Lu Tirsomini [facility] 10-13-2024 13:37-0500 Diastolic blood pressure 84 mm[Hg] Lu Sarmini [facility] 10-13-2024 13:37-0500 Heart rate 94 /min Aly Beverly [facility] 10-13-2024 13:37-0500 Systolic blood pressure 115 mm[Hg] Aly Beverly [facility] 10-08-2024 22:00-0500 Heart rate 75 /min [facility] 10-08-2024 22:00-0500 Mean blood pressure 105 mm[Hg] [facility] 10-08-2024 22:00-0500 Systolic blood pressure 124 mm[Hg] [facility] 10-08-2024 21:33-0500 Diastolic blood pressure 90 mm[Hg] [facility] 10-08-2024 21:33-0500 Heart rate 67 /min [facility] 10-08-2024 21:33-0500 Mean blood pressure 107 mm[Hg] [facility] 10-08-2024 21:33-0500 Respiratory rate 16 /min [facility] 10-08-2024 21:33-0500 SaO2% (BldA) [Mass fraction] 96 % [facility] 10-08-2024 21:33-0500 Systolic blood pressure 142 mm[Hg] [facility] 10-08-2024 20:12-0500 Diastolic blood pressure 95 mm[Hg] [facility] 10-08-2024 20:12-0500 Heart rate 80 /min [facility] 10-08-2024 20:12-0500 Mean blood pressure 116 mm[Hg] [facility] 10-08-2024 20:12-0500 Respiratory rate 18 /min [facility] 10-08-2024 20:12-0500 SaO2% (BldA) [Mass fraction] 95 % [facility] 10-08-2024 20:12-0500 Systolic blood pressure 157 mm[Hg] [facility] 10-08-2024 17:50-0500 Body temperature 97.7 [degF] [facility] 10-08-2024 17:50-0500 Heart rate 94 /min [facility] 10-08-2024 10:03-0500 Body height 172.7 cm Yossi Golden MD Work Phone: [facility] 10-08-2024 10:03-0500 Body mass index (BMI) [Ratio] 37.4 kg/m2 Yossi Golden MD Work Phone: [facility] 10-08-2024 10:03-0500 Body temperature 97.5 [degF] Yossi Golden MD Work Phone: [facility] 10-08-2024 10:03-0500 Body weight 111.58 kg Yossi Golden MD Work Phone: [facility] 10-08-2024 10:03-0500 Diastolic blood pressure 70 mm[Hg] Yossi Golden MD Work Phone: [facility] 10-08-2024 10:03-0500 Heart rate 81 /min Yossi Golden MD Work Phone: [facility] 10-08-2024 10:03-0500 Respiratory rate 22 /min Yossi Golden MD Work Phone: [facility] 10-08-2024 10:03-0500 SaO2% (BldA) [Mass fraction] 98 % Yossi Golden MD Work Phone: [facility] 10-08-2024 10:03-0500 Systolic blood pressure 120 mm[Hg] Yossi Golden MD Work Phone: [facility] 10-06-2024 19:41-0500 Diastolic blood pressure 92 mm[Hg] Phan Sandy [facility] 10-06-2024 19:41-0500 Heart rate 92 /min Phan Parkere [facility] 10-06-2024 19:41-0500 Respiratory rate 18 /min Phan Parkere [facility] 10-06-2024 19:41-0500 SaO2% (BldA) [Mass fraction] 96 % Phan Parkere [facility] 10-06-2024 19:41-0500 Systolic blood pressure 132 mm[Hg] Phan Parkere [facility] 10-06-2024 13:12-0500 Body temperature 97.88 [degF] Phan Parkere [facility] 10-06-2024 13:12-0500 Diastolic blood pressure 104 mm[Hg] Phan Parkere [facility] 10-06-2024 13:12-0500 Heart rate 92 /min Phan Parkere [facility] 10-06-2024 13:12-0500 Respiratory rate 16 /min Phan Sandy [facility] 10-06-2024 13:12-0500 SaO2% (BldA) [Mass fraction] 96 % Phan Parkere [facility] 10-06-2024 13:12-0500 Systolic blood pressure 151 mm[Hg] Phan Parkere [facility] 10-05-2024 02:08-0500 Diastolic blood pressure 87 mm[Hg] Rob Soco [facility] 10-05-2024 02:08-0500 Heart rate 74 /min Rob Soco [facility] 10-05-2024 02:08-0500 Mean blood pressure 100 mm[Hg] Rob Soco [facility] 10-05-2024 02:08-0500 Respiratory rate 16 /min Rob Soco [facility] 10-05-2024 02:08-0500 SaO2% (BldA) [Mass fraction] 95 % Rob Soco [facility] [place] 10-05-2024 02:08-0500 Systolic blood pressure 127 mm[Hg] Rob Soco [facility] 10-05-2024 01:00-0500 Diastolic blood pressure 44 mm[Hg] Rob Soco [facility] 10-05-2024 01:00-0500 Heart rate 69 /min Rob Soco [facility] 10-05-2024 01:00-0500 Mean blood pressure 70 mm[Hg] Rob Soco [facility] 10-05-2024 01:00-0500 Respiratory rate 17 /min Rob Soco [facility] 10-05-2024 01:00-0500 SaO2% (BldA) [Mass fraction] 95 % Rob Soco [facility] 10-05-2024 01:00-0500 Systolic blood pressure 122 mm[Hg] Rob Soco [facility] 10-05-2024 00:00-0500 Diastolic blood pressure 85 mm[Hg] Rob Soco [facility] 10-05-2024 00:00-0500 Heart rate 67 /min Rob Soco [facility] 10-05-2024 00:00-0500 Mean blood pressure 99 mm[Hg] Rob Soco [facility] 10-05-2024 00:00-0500 Respiratory rate 18 /min Rob Soco [facility] 10-05-2024 00:00-0500 SaO2% (BldA) [Mass fraction] 97 % Rob Leach [facility] 10-05-2024 00:00-0500 Systolic blood pressure 127 mm[Hg] Rob Leach [facility] 10-04-2024 19:01-0500 Body temperature 98.24 [degF] Rob Leach [facility] 10-04-2024 19:01-0500 Heart rate 90 /min Rob Leach [facility] 09-30-2024 12:00-0500 Diastolic blood pressure 90 mm[Hg] Cameron Conklin [facility] 09-30-2024 12:00-0500 Heart rate 95 /min Cameron Conklin [facility] 09-30-2024 12:00-0500 Mean blood pressure 105 mm[Hg] Cameron Rubin [facility] 09-30-2024 12:00-0500 Respiratory rate 20 /min Cameron Rubin [facility] 09-30-2024 12:00-0500 SaO2% (BldA) [Mass fraction] 97 % Cameron Rubin [facility] 09-30-2024 12:00-0500 Systolic blood pressure 136 mm[Hg] Cameron Rubin [facility] 09-30-2024 11:30-0500 Diastolic blood pressure 94 mm[Hg] Cameron Rubin [facility] 09-30-2024 11:30-0500 Heart rate 89 /min Cameron Rubin [facility] 09-30-2024 11:30-0500 Mean blood pressure 111 mm[Hg] Cameron Conklin [facility] 09-30-2024 11:30-0500 Respiratory rate 18 /min Cameron Conklin [facility] 09-30-2024 11:30-0500 SaO2% (BldA) [Mass fraction] 94 % Cameron Conklin [facility] 09-30-2024 11:30-0500 Systolic blood pressure 146 mm[Hg] Cameron Conklin [facility] 09-30-2024 11:00-0500 Diastolic blood pressure 102 mm[Hg] Cameron Conklin [facility] 09-30-2024 11:00-0500 Mean blood pressure 118 mm[Hg] Cameron Conklin [facility] 09-30-2024 11:00-0500 Systolic blood pressure 150 mm[Hg] Cameron Conklin [facility] 09-30-2024 10:48-0500 Body temperature 98.06 [degF] Cameron Conklin [facility] 09-30-2024 10:48-0500 Heart rate 97 /min Cameron Conklin [facility] 09-17-2024 12:01-0500 Body temperature 98.1 [degF] Rod Comlenares MD Work Phone: [facility] 09-17-2024 12:00-0500 Body mass index (BMI) [Ratio] 37.1 kg/m2 Rod Colmenares MD Work Phone: [facility] 09-17-2024 12:00-0500 Body weight 110.68 kg Rod Colmenares MD Work Phone: [facility] 09-17-2024 12:00-0500 Diastolic blood pressure 94 mm[Hg] [facility]ares [facility] 09-17-2024 12:00-0500 Heart rate 100 /min Rod Colmenares MD Work Phone: [facility] 09-17-2024 12:00-0500 Respiratory rate 16 /min Rod Colmenares MD Work Phone: [facility] 09-17-2024 12:00-0500 SaO2% (BldA) [Mass fraction] 96 % Rod Colmenares MD Work Phone: [facility] 09-17-2024 12:00-0500 Systolic blood pressure 135 mm[Hg] Rod Colmenares MD Work Phone: [facility] 09-10-2024 12:23-0500 Blood Pressure Location Lu Sarmini [facility] 09-10-2024 12:23-0500 Diastolic blood pressure 64 mm[Hg] Lu Sarmini [facility] 09-10-2024 12:23-0500 Heart rate 93 /min Lu Sarmini [facility] 09-10-2024 12:23-0500 Systolic blood pressure 88 mm[Hg] Lu Sarmini [facility] 08-24-2024 17:00-0500 Diastolic blood pressure 85 mm[Hg] Phan Sandy [facility] 08-24-2024 17:00-0500 Heart rate 79 /min Phan Sandy [facility] 08-24-2024 17:00-0500 Mean blood pressure 98 mm[Hg] Phan Sandy [facility] 08-24-2024 17:00-0500 Respiratory rate 16 /min Phan Du [facility] 08-24-2024 17:00-0500 SaO2% (BldA) [Mass fraction] 96 % Phan Du [facility] 08-24-2024 17:00-0500 Systolic blood pressure 125 mm[Hg] Phan Du [facility] 08-24-2024 16:00-0500 Diastolic blood pressure 96 mm[Hg] Phan Du [facility] 08-24-2024 16:00-0500 Heart rate 82 /min Phan Du [facility] 08-24-2024 16:00-0500 Mean blood pressure 105 mm[Hg] Phan Du [facility] 08-24-2024 16:00-0500 Systolic blood pressure 123 mm[Hg] Phan Du [facility] 08-24-2024 15:00-0500 Diastolic blood pressure 83 mm[Hg] Phan Du [facility] 08-24-2024 15:00-0500 Heart rate 89 /min Phan Parkere [facility] 08-24-2024 15:00-0500 Mean blood pressure 95 mm[Hg] Phan Du [facility] 08-24-2024 15:00-0500 SaO2% (BldA) [Mass fraction] 95 % Phan Du [facility] 08-24-2024 15:00-0500 Systolic blood pressure 119 mm[Hg] Phan Du [facility] 08-24-2024 12:17-0500 Body temperature 98.06 [degF] Phan Du [facility] 08-24-2024 12:17-0500 Heart rate 85 /min Phan Sandy [facility] 08-24-2024 12:17-0500 Respiratory rate 18 /min Phan Sandy [facility] 08-14-2024 18:10-0500 Hourly Rounding Mbanefo OJUKWU [facility] 08-14-2024 18:10-0500 Promise to Return Mbanefo OJUKWU [facility] 08-14-2024 17:10-0500 Hourly Rounding Mbanefo OJUKWU [facility] 08-14-2024 17:10-0500 Promise to Return Mbanefo OJUKWU [facility] 08-14-2024 17:09-0500 Heart rate 69 /min Mbanefo OJUKWU [facility] 08-14-2024 17:09-0500 SaO2% (BldA) [Mass fraction] 93 % Mbanefo OJUKWU [facility] 08-14-2024 17:09-0500 Body temperature 97.52 [degF] Mbanefo OJUKWU [facility] 08-14-2024 17:08-0500 Diastolic blood pressure 94 mm[Hg] Mbanefo OJUKWU [facility] 08-14-2024 17:08-0500 Mean blood pressure 108 mm[Hg] Mbanefo OJUKWU [facility] 08-14-2024 17:08-0500 Systolic blood pressure 138 mm[Hg] Mbanefo OJUKWU [facility] 08-14-2024 16:10-0500 Hourly Rounding Mbanefo OJUKWU [facility] 08-14-2024 16:10-0500 Promise to Return Mbanefo OJUKWU [facility] 08-14-2024 11:34-0500 Heart rate 70 /min Mbanefo OJUKWU [facility] 08-14-2024 11:34-0500 SaO2% (BldA) [Mass fraction] 98 % Mbanefo OJUKWU [facility] 08-14-2024 11:34-0500 Diastolic blood pressure 85 mm[Hg] Mbanefo OJUKWU [facility] 08-14-2024 11:34-0500 Mean blood pressure 102 mm[Hg] Mbanefo OJUKWU [facility] 08-14-2024 11:34-0500 Systolic blood pressure 137 mm[Hg] Mbanefo OJUKWU [facility] 08-14-2024 11:34-0500 Body temperature 97.88 [degF] Mbanefo OJUKWU [facility] 08-14-2024 07:52-0500 Heart rate 75 /min Mbanefo OJUKWU [facility] 08-14-2024 07:52-0500 SaO2% (BldA) [Mass fraction] 97 % Mbanefo OJUKWU [facility] 08-14-2024 07:52-0500 Diastolic blood pressure 89 mm[Hg] Mbanefo OJUKWU [facility] 08-14-2024 07:52-0500 Mean blood pressure 103 mm[Hg] Mbanefo OJUKWU [facility] 08-14-2024 07:52-0500 Systolic blood pressure 130 mm[Hg] Mbanefo OJUKWU [facility] 08-14-2024 07:52-0500 Body temperature 98.24 [degF] Mbanefo OJUKWU [facility] 08-14-2024 05:00-0500 Blood Pressure Location Mbanefo OJUKWU [facility] 08-14-2024 05:00-0500 Body temperature 97.34 [degF] Mbanefo OJUKWU [facility] 08-14-2024 05:00-0500 Mean blood pressure 96 mm[Hg] Mbanefo OJUKWU [facility] 08-14-2024 00:49-0500 Blood Pressure Location Mbanefo OJUKWU [facility] 08-14-2024 00:49-0500 Body temperature 97.52 [degF] Mbanefo OJUKWU [facility] 08-14-2024 00:49-0500 Mean blood pressure 94 mm[Hg] Mbanefo OJUKWU [facility] 08-13-2024 17:45-0500 Respiratory rate 20 /min Mbanefo OJUKWU [facility] 08-13-2024 16:42-0500 Blood Pressure Location Mbanefo OJUKWU [facility] 08-13-2024 16:42-0500 Body temperature 98.6 [degF] Mbanefo OJUKWU [facility] 08-13-2024 16:42-0500 Heart rate 63 /min Mbanefo OJUKWU [facility] 08-13-2024 16:42-0500 Respiratory rate 18 /min Mbanefo OJUKWU [facility] 08-13-2024 16:00-0500 Respiratory rate 18 /min Mbanefo OJUKWU [facility] 08-13-2024 15:00-0500 Mean blood pressure 103 mm[Hg] Mbanefo OJUKWU [facility] 08-13-2024 15:00-0500 Respiratory rate 14 /min Mbanefo OJUKWU [facility] 08-13-2024 14:30-0500 Respiratory rate 15 /min Mbanefo OJUKWU [facility] 08-13-2024 10:30-0500 Respiratory rate 16 /min Mbanefo OJUKWU [facility] 08-13-2024 09:01-0500 Heart rate 91 /min Mbanefo OJUKWU [facility] 08-11-2024 11:38-0500 Body height 172.7 cm Yossi Golden MD Work Phone: [facility] 08-11-2024 11:38-0500 Body mass index (BMI) [Ratio] 37.1 kg/m2 Yossi Golden MD Work Phone: [facility] 08-11-2024 11:38-0500 Body temperature 97.11 [degF] Yossi Golden MD Work Phone: [facility] 08-11-2024 11:38-0500 Body weight 110.68 kg Yossi Golden MD Work Phone: [facility] 08-11-2024 11:38-0500 Diastolic blood pressure 66 mm[Hg] Yossi Golden MD Work Phone: [facility] 08-11-2024 11:38-0500 Heart rate 88 /min Yossi Golden MD Work Phone: [facility] 08-11-2024 11:38-0500 Respiratory rate 22 /min Yossi Golden MD Work Phone: [facility] 08-11-2024 11:38-0500 SaO2% (BldA) [Mass fraction] 97 % Yossi Golden MD Work Phone: [facility] 08-11-2024 11:38-0500 Systolic blood pressure 122 mm[Hg] Yossi Golden MD Work Phone: [facility] 08-10-2024 10:25-0500 Blood Pressure Location Lu Sarmini [facility] 08-10-2024 10:25-0500 Diastolic blood pressure 83 mm[Hg] Lu Sarmini [facility] 08-10-2024 10:25-0500 Heart rate 87 /min Lu Sarmini [facility] 08-10-2024 10:25-0500 Respiratory rate 16 /min Lu Sarmini [facility] 08-10-2024 10:25-0500 Systolic blood pressure 129 mm[Hg] Lu Sarmini [facility] 08-07-2024 11:50-0500 Diastolic blood pressure 49 mm[Hg] Phan Sandy [facility] 08-07-2024 11:50-0500 Heart rate 76 /min Phan Du [facility] 08-07-2024 11:50-0500 Mean blood pressure 66 mm[Hg] Phan Parkere [facility] 08-07-2024 11:50-0500 SaO2% (BldA) [Mass fraction] 97 % Phan Parkere [facility] 08-07-2024 11:50-0500 Systolic blood pressure 101 mm[Hg] Phan Parkere [facility] 08-07-2024 10:07-0500 Diastolic blood pressure 71 mm[Hg] Phan Parkere [facility] 08-07-2024 10:07-0500 Heart rate 77 /min Phan Parkere [facility] 08-07-2024 10:07-0500 Mean blood pressure 82 mm[Hg] Phan Parkere [facility] 08-07-2024 10:07-0500 Respiratory rate 18 /min Phan Parkere [facility] 08-07-2024 10:07-0500 SaO2% (BldA) [Mass fraction] 97 % Phan Parkere [facility] 08-07-2024 10:07-0500 Systolic blood pressure 105 mm[Hg] Phan Parkere [facility] 08-07-2024 09:08-0500 Body temperature 98.06 [degF] Phan Du [facility] 08-07-2024 09:08-0500 Diastolic blood pressure 76 mm[Hg] Phan Du [facility] 08-07-2024 09:08-0500 Heart rate 92 /min Phan Parkere [facility] 08-07-2024 09:08-0500 Respiratory rate 18 /min Phan Sandy [facility] 08-07-2024 09:08-0500 SaO2% (BldA) [Mass fraction] 97 % Phan Sandy [facility] 08-07-2024 09:08-0500 Systolic blood pressure 125 mm[Hg] Phan Sandy [facility] 08-06-2024 23:48-0500 Heart rate 85 /min Cameron Rubin [facility] 08-06-2024 23:48-0500 Respiratory rate 16 /min Cameron Rubin [facility] 08-06-2024 23:48-0500 SaO2% (BldA) [Mass fraction] 98 % Cameron Rubin [facility] 08-06-2024 22:59-0500 Diastolic blood pressure 101 mm[Hg] Cameron Rubin [facility] 08-06-2024 22:59-0500 Heart rate 97 /min Camreon Rubin [facility] 08-06-2024 22:59-0500 Mean blood pressure 118 mm[Hg] Cameron Rubin [facility] 08-06-2024 22:59-0500 Respiratory rate 17 /min Cameron Rubin [facility] 08-06-2024 22:59-0500 SaO2% (BldA) [Mass fraction] 96 % Cameron Rubin [facility] 08-06-2024 22:59-0500 Systolic blood pressure 151 mm[Hg] Cameron Rubin [facility] 08-06-2024 21:00-0500 Diastolic blood pressure 95 mm[Hg] Cameron Rubin [facility] 08-06-2024 21:00-0500 Heart rate 92 /min Cameron Conklin [facility] 08-06-2024 21:00-0500 Mean blood pressure 114 mm[Hg] Cameron Conklin [facility] 08-06-2024 21:00-0500 SaO2% (BldA) [Mass fraction] 92 % Cameron Conklin [facility] 08-06-2024 20:00-0500 Body temperature 98.24 [degF] Cameron Conklin [facility] 08-06-2024 20:00-0500 Diastolic blood pressure 80 mm[Hg] Cameron Conklin [facility] 08-06-2024 20:00-0500 Mean blood pressure 96 mm[Hg] Cameron Conklin [facility] 08-06-2024 20:00-0500 Systolic blood pressure 129 mm[Hg] Cameron Conklin [facility] 08-06-2024 19:07-0500 Heart rate 106 /min Cameron Conklin [facility] 08-06-2024 10:00-0500 Body temperature 98.49 [degF] Chemo Solo MD Work Phone: [facility] 08-06-2024 09:57-0500 Body height 172.7 cm Chemo Solo MD Work Phone: [facility] 08-06-2024 09:57-0500 Body mass index (BMI) [Ratio] 36.49 kg/m2 Chemo Solo MD Work Phone: [facility] 08-06-2024 09:57-0500 Body weight 108.86 kg Chemo Solo MD Work Phone: [facility] 08-06-2024 09:57-0500 Diastolic blood pressure 82 mm[Hg] Chemo Solo MD Work Phone: [facility] 08-06-2024 09:57-0500 Heart rate 93 /min Chemo Solo MD Work Phone: [facility] 08-06-2024 09:57-0500 Respiratory rate 18 /min Chemo Solo MD Work Phone: [facility] 08-06-2024 09:57-0500 SaO2% (BldA) [Mass fraction] 97 % Chemo Solo MD Work Phone: [facility] 08-06-2024 09:57-0500 Systolic blood pressure 143 mm[Hg] Chemo Solo MD Work Phone: [facility] 07-29-2024 21:08-0500 Diastolic blood pressure 72 mm[Hg] [facility] 07-29-2024 21:08-0500 Heart rate 89 /min [facility] 07-29-2024 21:08-0500 Mean blood pressure 85 mm[Hg] [facility] 07-29-2024 21:08-0500 Respiratory rate 18 /min [facility] 07-29-2024 21:08-0500 SaO2% (BldA) [Mass fraction] 98 % [facility] 07-29-2024 21:08-0500 Systolic blood pressure 110 mm[Hg] [facility] 07-29-2024 20:59-0500 Diastolic blood pressure 96 mm[Hg] [facility] 07-29-2024 20:59-0500 Heart rate 85 /min [facility] 07-29-2024 20:59-0500 Mean blood pressure 110 mm[Hg] [facility] 07-29-2024 20:59-0500 Respiratory rate 18 /min [facility] 07-29-2024 20:59-0500 SaO2% (BldA) [Mass fraction] 97 % [facility] 07-29-2024 20:59-0500 Systolic blood pressure 137 mm[Hg] [facility] 07-29-2024 20:13-0500 Diastolic blood pressure 94 mm[Hg] [facility] 07-29-2024 20:13-0500 Heart rate 99 /min [facility] 07-29-2024 20:13-0500 Mean blood pressure 106 mm[Hg] [facility] 07-29-2024 20:13-0500 Respiratory rate 18 /min [facility] 07-29-2024 20:13-0500 SaO2% (BldA) [Mass fraction] 99 % [facility] 07-29-2024 20:13-0500 Systolic blood pressure 130 mm[Hg] [facility] 07-29-2024 18:49-0500 Body temperature 97.7 [degF] [facility] 07-29-2024 18:49-0500 Heart rate 94 /min [facility] 07-09-2024 13:15-0400 Body height 172.7 cm Yossi Golden MD Work Phone: [facility] 07-09-2024 13:15-0400 Body mass index (BMI) [Ratio] 36.64 kg/m2 Yossi Golden MD Work Phone: [facility] 07-09-2024 13:15-0400 Body temperature 95.5 [degF] Yossi Golden MD Work Phone: [facility] 07-09-2024 13:15-0400 Body weight 109.32 kg Yossi Golden MD Work Phone: [facility] 07-09-2024 13:15-0400 Diastolic blood pressure 64 mm[Hg] Yossi Golden MD Work Phone: [facility] 07-09-2024 13:15-0400 Heart rate 82 /min Yossi Golden MD Work Phone: [facility] 07-09-2024 13:15-0400 Respiratory rate 22 /min Yossi Golden MD Work Phone: [facility] 07-09-2024 13:15-0400 SaO2% (BldA) [Mass fraction] 97 % Yossi Golden MD Work Phone: [facility] 07-09-2024 13:15-0400 Systolic blood pressure 126 mm[Hg] Yossi Golden MD Work Phone: [facility] 07-08-2024 08:47-0400 Body height 172.7 cm [facility] 07-08-2024 07:05-0400 Body temperature 97.9 [degF] Kay[facility] Ellis [facility] 07-08-2024 07:05-0400 Diastolic blood pressure 83 mm[Hg] Kaylie Sommer DO [facility] 07-08-2024 07:05-0400 Heart rate 61 /min Kaylie Sommer DO [facility] 07-08-2024 07:05-0400 Respiratory rate 19 /min Kaylie Sommer DO Work Phone: [facility] 07-08-2024 07:05-0400 SaO2% (BldA) [Mass fraction] 95 % Kaylie Sommer DO [facility] 07-08-2024 07:05-0400 Systolic blood pressure 132 mm[Hg] Kaylie Sommer DO Work Phone: [facility] 07-08-2024 06:00-0400 Body mass index (BMI) [Ratio] 37.94 kg/m2 Kaylie Sommer DO Work Phone: [facility] 07-08-2024 06:00-0400 Body weight 113.17 kg Kaylie Sommer DO Work Phone: [facility] 07-05-2024 22:30-0400 Blood Pressure Location Kaylinn Dokken [facility] 07-05-2024 22:30-0400 Diastolic blood pressure 84 mm[Hg] Kaylinn Dokken [facility] 07-05-2024 22:30-0400 Heart rate 78 /min Kaylinn Dokken [facility] 07-05-2024 22:30-0400 Mean blood pressure 98 mm[Hg] Kaylinn Dokken [facility] 07-05-2024 22:30-0400 Respiratory rate 16 /min Kaylinn Dokken [facility] 07-05-2024 22:30-0400 SaO2% (BldA) [Mass fraction] 98 % Kaylinn Dokken [facility] 07-05-2024 22:30-0400 Systolic blood pressure 125 mm[Hg] Kaylinn Dokken [facility] 07-05-2024 22:00-0400 Diastolic blood pressure 80 mm[Hg] Kaylinn Dokken [facility] 07-05-2024 22:00-0400 Heart rate 86 /min Kaylinn Dokken [facility] 07-05-2024 22:00-0400 Mean blood pressure 88 mm[Hg] Kaylinn Dokken [facility] 07-05-2024 22:00-0400 SaO2% (BldA) [Mass fraction] 96 % Kaylinn Dokken [facility] 07-05-2024 22:00-0400 Systolic blood pressure 105 mm[Hg] Kaylinn Dokken [facility] 07-05-2024 21:00-0400 Diastolic blood pressure 90 mm[Hg] Kaylinn Dokken [facility] 07-05-2024 21:00-0400 Heart rate 92 /min Kaylinn Dokken [facility] 07-05-2024 21:00-0400 Mean blood pressure 111 mm[Hg] Kaylinn Dokken [facility] 07-05-2024 21:00-0400 Respiratory rate 18 /min Kaylinn Dokken [facility] 07-05-2024 21:00-0400 SaO2% (BldA) [Mass fraction] 97 % Kaylinn Dokken [facility] 07-05-2024 21:00-0400 Systolic blood pressure 154 mm[Hg] Kaylinn Dokken [facility] 07-05-2024 17:42-0400 Body temperature 98.06 [degF] Kaylinn Dokken [facility] 07-05-2024 17:42-0400 Heart rate 102 /min Kaylinn Dokken [facility] 06-20-2024 23:47-0400 Diastolic blood pressure 66 mm[Hg] Rob Soco [facility] 06-20-2024 23:47-0400 Heart rate 63 /min Rob Leach [facility] 06-20-2024 23:47-0400 Mean blood pressure 88 mm[Hg] Rob Leach [facility] 06-20-2024 23:47-0400 Systolic blood pressure 132 mm[Hg] Rob Leach [facility] 06-20-2024 22:11-0400 Diastolic blood pressure 86 mm[Hg] Rob Leach [facility] 06-20-2024 22:11-0400 Heart rate 69 /min Rob Soco [facility] 06-20-2024 22:11-0400 Mean blood pressure 102 mm[Hg] Rob Leach [facility] 06-20-2024 22:11-0400 Nursing Progress Note Reason Other: states nausea is better. repeat vitals done. pt checked blood sugar. states it is 150 per her machine Rob Leach [facility] 06-20-2024 22:11-0400 SaO2% (BldA) [Mass fraction] 97 % Rob Leach [facility] 06-20-2024 22:11-0400 Systolic blood pressure 135 mm[Hg] Rob Leach [facility] 06-20-2024 22:06-0400 Diastolic blood pressure 76 mm[Hg] Rob Leach [facility] 06-20-2024 22:06-0400 Heart rate 79 /min Rob Leach [facility] 06-20-2024 22:06-0400 Mean blood pressure 89 mm[Hg] Rob Leach [facility] 06-20-2024 22:06-0400 Respiratory rate 16 /min Rob Soco [facility] 06-20-2024 22:06-0400 SaO2% (BldA) [Mass fraction] 95 % Rob Leach [facility] 06-20-2024 22:06-0400 Systolic blood pressure 115 mm[Hg] Rob Leach [facility] 06-20-2024 21:36-0400 Hourly Rounding Rob Leach [facility] Comment on above: Result Comment: medicated. Resting in be d. at bedside. 06-20-2024 21:34-0400 Respiratory rate 16 /min Rob Leach [facility] 06-20-2024 21:34-0400 SaO2% (BldA) [Mass fraction] 95 % [facility] [facility] 06-20-2024 20:45-0400 Respiratory rate 18 /min Rob Leach [facility] 06-20-2024 18:50-0400 Body temperature 97.88 [degF] Rob Leach [facility] 06-20-2024 18:50-0400 Heart rate 92 /min Rob Leach [facility] 06-09-2024 05:00-0400 Diastolic blood pressure 88 mm[Hg] Juwaninn Dokken [facility] 06-09-2024 05:00-0400 Heart rate 89 /min Saraiylinn Dokken [facility] 06-09-2024 05:00-0400 SaO2% (BldA) [Mass fraction] 97 % Juwaninn Dokken [facility] 06-09-2024 05:00-0400 Systolic blood pressure 132 mm[Hg] Kaylinn Dokken [facility] 06-09-2024 04:08-0400 Blood Pressure Location Kaylinn Dokken [facility] 06-09-2024 04:08-0400 Diastolic blood pressure 83 mm[Hg] Kaylinn Dokken [facility] 06-09-2024 04:08-0400 Heart rate 81 /min Kaylinn Dokken [facility] 06-09-2024 04:08-0400 Mean blood pressure 98 mm[Hg] Kaylinn Dokken [facility] 06-09-2024 04:08-0400 Respiratory rate 16 /min Kaylinn Dokken [facility] 06-09-2024 04:08-0400 SaO2% (BldA) [Mass fraction] 96 % Kaylinn Dokken [facility] 06-09-2024 04:08-0400 Systolic blood pressure 129 mm[Hg] Kaylinn Dokken [facility] 06-09-2024 03:36-0400 Diastolic blood pressure 92 mm[Hg] Kaylinn Dokken [facility] 06-09-2024 03:36-0400 Heart rate 82 /min Kaylinn Dokken [facility] 06-09-2024 03:36-0400 Mean blood pressure 103 mm[Hg] Kaylinn Dokken [facility] 06-09-2024 03:36-0400 Respiratory rate 14 /min Kaylinn Dokken [facility] 06-09-2024 03:36-0400 SaO2% (BldA) [Mass fraction] 96 % Chavo Squires [facility] 06-09-2024 03:36-0400 Systolic blood pressure 126 mm[Hg] Chavo Squires [facility] 06-09-2024 02:35-0400 Body temperature 97.7 [degF] Chavo Squires [facility] 06-09-2024 02:35-0400 Heart rate 84 /min Chavo Squires [facility] 06-08-2024 13:47-0400 Body mass index (BMI) [Ratio] 37.86 kg/m2 Yossi Golden MD Work Phone: [facility] 06-08-2024 13:47-0400 Body temperature 98.01 [degF] Yossi Golden MD Work Phone: [facility] 06-08-2024 13:47-0400 Body weight 112.95 kg Yossi Golden MD Work Phone: [facility] 06-08-2024 13:47-0400 Diastolic blood pressure 64 mm[Hg] Yossi Golden MD Work Phone: [facility] 06-08-2024 13:47-0400 Heart rate 91 /min Yossi Golden MD Work Phone: [facility] 06-08-2024 13:47-0400 Respiratory rate 17 /min Yossi Golden MD Work Phone: [facility] 06-08-2024 13:47-0400 SaO2% (BldA) [Mass fraction] 98 % Yossi Golden MD Work Phone: [facility] 06-08-2024 13:47-0400 Systolic blood pressure 110 mm[Hg] Yossi Golden MD Work Phone: [facility] 06-01-2024 09:48-0400 Blood Pressure Location Lu Sarmini [facility] 06-01-2024 09:48-0400 Diastolic blood pressure 95 mm[Hg] Lu Sar[facility] 06-01-2024 09:48-0400 Heart rate 70 /min Lu Sarmini [facility] 06-01-2024 09:48-0400 Systolic blood pressure 137 mm[Hg] Lu Sarmini [facility] 06-01-2024 09:41-0400 Blood Pressure Location Lu Sarmini [facility] 06-01-2024 09:41-0400 Respiratory rate 16 /min Lu Sarmini [facility] 05-26-2024 14:34-0400 Diastolic blood pressure 68 mm[Hg] Yoly Strange MD Work Phone: [facility] [employer] 05-26-2024 14:34-0400 Heart rate 93 /min Yoly Strange MD Work Phone: [facility] 05-26-2024 14:34-0400 Respiratory rate 20 /min Yoly Strange MD Work Phone: [facility] 05-26-2024 14:34-0400 Systolic blood pressure 101 mm[Hg] Yoly Strange MD Work Phone: [facility] 05-26-2024 12:12-0400 SaO2% (BldA) [Mass fraction] 98 % Yoly Strange MD Work Phone: [facility] [employer] 05-26-2024 12:11-0400 Body temperature 97.81 [degF] Yoly Strange MD Work Phone: [facility] 05-24-2024 13:25-0400 Hourly Round[facility] 05-24-2024 13:25-0400 Promise to Return [facility] 05-24-2024 12:00-0400 Hour[employer] Round[employer] [facility] 05-24-2024 12:00-0400 Promise to Return [facility] 05-24-2024 11:31-0400 Hour[employer] Round[employer] [facility] 05-24-2024 11:31-0400 Promise to Return [facility] 05-24-2024 11:00-0400 Body temperature 97.7 [degF] [facility] 05-24-2024 11:00-0400 Diastolic blood pressure 71 mm[Hg] [facility] 05-24-2024 11:00-0400 gluc 153 mg/dL [facility] 05-24-2024 11:00-0400 Heart rate 90 /min [facility] 05-24-2024 11:00-0400 Mean blood pressure 84 mm[Hg] [facility] 05-24-2024 11:00-0400 Respiratory rate 18 /min [facility] 05-24-2024 11:00-0400 Systolic blood pressure 110 mm[Hg] [facility] 05-24-2024 07:46-0400 Heart rate 84 /min [facility] 05-24-2024 07:46-0400 Respiratory rate 16 /min [facility] 05-24-2024 07:46-0400 SaO2% (BldA) [Mass fraction] 99 % [facility] 05-24-2024 07:45-0400 Body temperature 97.88 [degF] [facility] 05-24-2024 07:45-0400 Blood Pressure Location [facility] 05-24-2024 07:45-0400 Diastolic blood pressure 84 mm[Hg] [facility] 05-24-2024 07:45-0400 Mean blood pressure 102 mm[Hg] [facility] 05-24-2024 07:45-0400 Systolic blood pressure 139 mm[Hg] [facility] 05-24-2024 07:00-0400 gluc 129 mg/dL [facility] 05-24-2024 02:24-0400 Body temperature 97.52 [degF] [facility] 05-24-2024 02:24-0400 Diastolic blood pressure 78 mm[Hg] [facility] 05-24-2024 02:24-0400 Heart rate 84 /min [facility] 05-24-2024 02:24-0400 SaO2% (BldA) [Mass fraction] 96 % [facility] 05-24-2024 02:24-0400 Systolic blood pressure 126 mm[Hg] [facility] 05-23-2024 19:32-0400 Body temperature 97.7 [degF] [facility] 05-23-2024 19:32-0400 Mean blood pressure 94 mm[Hg] [facility] 05-23-2024 16:00-0400 gluc 124 mg/dL [facility] 05-23-2024 14:00-0400 Mean blood pressure 88 mm[Hg] [facility] 05-23-2024 13:00-0400 Blood Pressure Location [facility] 05-23-2024 13:00-0400 Body temperature 97.16 [degF] [facility] 05-23-2024 13:00-0400 Respiratory rate 18 /min [facility] 05-23-2024 02:30-0400 Body temperature 98.42 [degF] [facility] 05-23-2024 02:30-0400 Heart rate 81 /min [facility] 05-23-2024 02:25-0400 Mean blood pressure 101 mm[Hg] [facility] 05-22-2024 21:48-0400 Heart rate 97 /min [facility] 05-04-2024 12:01-0400 Body height 172.72 cm [employer] [facility] 05-04-2024 12:01-0400 Body mass index (BMI) [Ratio] 37.86 kg/m2 [employer] [facility] 05-04-2024 12:01-0400 Body surface area Derived from formula 2.33 m2 [employer] [facility] 05-04-2024 12:01-0400 Body weight 112.95 kg [employer] [facility] 05-04-2024 12:01-0400 Diastolic blood pressure 60 mm[Hg] [employer] [facility] 05-04-2024 12:01-0400 Heart rate 76 /min [employer] 05-04-2024 12:01-0400 Systolic blood pressure 104 mm[Hg] [employer] 02-05-2024 19:33-0400 Body temperature 98.01 [degF] Yossi Golden MD Work Phone: [employer] 02-05-2024 19:33-0400 Diastolic blood pressure 103 mm[Hg] Yossi Golden MD Work Phone: [employer] 02-05-2024 19:33-0400 Heart rate 99 /min Yossi Golden MD Work Phone: [employer] 02-05-2024 19:33-0400 Respiratory rate 18 /min Yossi Golden MD Work Phone: [employer] 02-05-2024 19:33-0400 SaO2% (BldA) [Mass fraction] 97 % Yossi Golden MD Work Phone: [facility] [employer] 02-05-2024 19:33-0400 Systolic blood pressure 165 mm[Hg] Yossi Golden MD Work Phone: [facility] [employer] 01-30-2024 19:30-0400 Diastolic blood pressure 78 mm[Hg] Charly Ranellone DO Work Phone: [employer] 01-30-2024 19:30-0400 Heart rate 92 /min Charly Ranellone DO Work Phone: [facility] [employer] 01-30-2024 19:30-0400 Respiratory rate 17 /min Charly Ranellone DO Work Phone: [facility] [employer] 01-30-2024 19:30-0400 SaO2% (BldA) [Mass fraction] 96 % Charly Ranellone DO Work Phone: [employer] 01-30-2024 19:30-0400 Systolic blood pressure 131 mm[Hg] Charly Ranellone DO Work Phone: [facility] [employer] 01-30-2024 17:51-0400 Body temperature 97.7 [degF] Charly Ranellone DO Work Phone: [employer] 01-04-2024 21:36-0400 Heart rate 90 /min Gloria Bosch MD Work Phone: [facility] [employer] [facility] [employer] 01-04-2024 19:41-0400 Body temperature 97.7 [degF] Gloria Bosch MD Work Phone: [facility] [employer] [facility] [employer] 01-04-2024 19:41-0400 Diastolic blood pressure 110 mm[Hg] Gloria Bosch MD Work Phone: [facility] [employer] 01-04-2024 19:41-0400 Respiratory rate 16 /min Gloria Bosch MD Work Phone: [facility] [employer] [facility] [employer] 01-04-2024 19:41-0400 SaO2% (BldA) [Mass fraction] 97 % Gloria Bosch MD Work Phone: [facility] [employer] [facility] [employer] 01-04-2024 19:41-0400 Systolic blood pressure 158 mm[Hg] Gloria Bosch MD Work Phone: [facility] [employer] 11-24-2023 00:09-0500 SaO2% (BldA) [Mass fraction] 94 % Samy Walker MD [facility] [employer] [facility] [employer] 11-24-2023 00:03-0500 Body height 172.7 cm Samy Walker MD [facility] 11-24-2023 00:03-0500 Body mass index (BMI) [Ratio] 38.01 kg/m2 Samy Walker MD [facility] [employer] [facility] [employer] 11-24-2023 00:03-0500 Body weight 113.4 kg Samy Walker MD [facility] [employer] 11-24-2023 00:03-0500 Diastolic blood pressure 87 mm[Hg] Samy Walker MD [facility] 11-24-2023 00:03-0500 Systolic blood pressure 134 mm[Hg] Samy Walker MD [facility] [employer] [facility] [employer] 11-23-2023 20:23-0500 Body temperature 97.5 [degF] Samy [facility]IA [facility] [employer] 11-23-2023 20:23-0500 Heart rate 99 /min Samy GARCIA [employer] 11-23-2023 20:23-0500 Respiratory rate 18 /min Samy Walker MD [facility] [employer] 10-14-2023 09:40-0500 Heart rate 125 /min Samy Walker MD [facility] [employer] 10-14-2023 08:28-0500 Body mass index (BMI) [Ratio] 38.01 kg/m2 Samy Walker MD [facility] [employer] 10-14-2023 08:28-0500 Body temperature 101.41 [degF] Samy Walker MD [facility] [employer] 10-14-2023 08:28-0500 Body weight 113.4 kg Samy Walker MD [facility] [employer] 10-14-2023 08:28-0500 Diastolic blood pressure 92 mm[Hg] Samy Walker MD [facility] [employer] 10-14-2023 08:28-0500 Respiratory rate 24 /min Samy Walker MD [facility] [employer] 10-14-2023 08:28-0500 SaO2% (BldA) [Mass fraction] 96 % Samy Walker MD [facility] [employer] 10-14-2023 08:28-0500 Systolic blood pressure 148 mm[Hg] Samy Walker MD [facility] [employer] 03-23-2023 19:40-0400 Diastolic blood pressure 86 mm[Hg] Nazia Ragsdale MD Work Phone: [facility] [employer] 03-23-2023 19:40-0400 Heart rate 72 /min Nazia Ragsdale MD Work Phone: [facility] [employer] 03-23-2023 19:40-0400 Respiratory rate 18 /min Nazia Ragsdale MD Work Phone: [facility] [employer] 03-23-2023 19:40-0400 SaO2% (BldA) [Mass fraction] 96 % Nazia Ragsdale MD Work Phone: [facility] [employer] 03-23-2023 19:40-0400 Systolic blood pressure 125 mm[Hg] Nazia Ragsdale MD Work Phone: [facility] [employer] 03-23-2023 17:45-0400 Body temperature 97.59 [degF] Nazia Ragsdale MD Work Phone: [facility] 02-18-2023 18:02-0400 Body temperature 98.4 [degF] Samy Walker MD [facility] 02-18-2023 18:02-0400 Diastolic blood pressure 105 mm[Hg] Samy Walker MD [facility] 02-18-2023 18:02-0400 Heart rate 105 /min Samy Walker MD [facility] 02-18-2023 18:02-0400 Respiratory rate 18 /min Samy Walker MD [facility] 02-18-2023 18:02-0400 SaO2% (BldA) [Mass fraction] 96 % Samy Walker MD [facility] 02-18-2023 18:02-0400 Systolic blood pressure 153 mm[Hg] Samy Walker MD [facility] 12-24-2022 17:00-0400 Diastolic blood pressure 69 mm[Hg] Anahi Phelps DO Work Phone: [facility] 12-24-2022 17:00-0400 Heart rate 76 /min Anahi Phelps DO Work Phone: [facility] 12-24-2022 17:00-0400 Respiratory rate 17 /min Anahi Phelps DO Work Phone: [facility] 12-24-2022 17:00-0400 SaO2% (BldA) [Mass fraction] 95 % Anahi Phelps DO Work Phone: [facility] 12-24-2022 17:00-0400 Systolic blood pressure 129 mm[Hg] Anahi Phelps DO Work Phone: [facility] 12-04-2022 13:20-0400 Blood Pressure Location Yajaira [facility] 12-04-2022 13:20-0400 Diastolic blood pressure 82 mm[Hg] Yajaira [facility] 12-04-2022 13:20-0400 Heart rate 80 /min Yajaira [facility] 12-04-2022 13:20-0400 Respiratory rate 16 /min Yajaira [facility] 12-04-2022 13:20-0400 Systolic blood pressure 126 mm[Hg] Yajaira [facility] 11-12-2022 13:30-0500 Diastolic blood pressure 59 mm[Hg] Maryam Klineg DO Work Phone: [facility] [employer] 11-12-2022 13:30-0500 Heart rate 85 /min Maryam Klineg DO Work Phone: [facility] [employer] 11-12-2022 13:30-0500 Respiratory rate 16 /min Maryam Klineg DO Work Phone: [facility] [employer] 11-12-2022 13:30-0500 SaO2% (BldA) [Mass fraction] 96 % Maryam Klineg DO Work Phone: [facility] [employer] 11-12-2022 13:30-0500 Systolic blood pressure 114 mm[Hg] Maryam Klineg DO Work Phone: [facility] [employer] 11-12-2022 11:46-0500 Body temperature 97.59 [degF] Maryam Klineg DO Work Phone: [facility] [employer] 11-12-2022 08:32-0500 Body height 172.7 cm Maryam Klineg DO Work Phone: [facility] [employer] 11-12-2022 08:32-0500 Body mass index (BMI) [Ratio] 37.25 kg/m2 Maryam Klineg DO Work Phone: [facility] [employer] 11-12-2022 08:32-0500 Body weight 111.13 kg Maryam Klineg DO Work Phone: [facility] [employer] 11-01-2022 17:44-0500 SaO2% (BldA) [Mass fraction] 96 % Yossi Golden MD Work Phone: [employer] 11-01-2022 17:40-0500 Diastolic blood pressure 88 mm[Hg] Yossi Golden MD Work Phone: [employer] 11-01-2022 17:40-0500 Systolic blood pressure 134 mm[Hg] Yossi Golden MD Work Phone: [employer] 11-01-2022 15:04-0500 Body temperature 97.59 [degF] Yossi Golden MD Work Phone: [employer] 11-01-2022 15:04-0500 Heart rate 101 /min Yossi Golden MD Work Phone: [employer] 11-01-2022 15:04-0500 Respiratory rate 16 /min Yossi Golden MD Work Phone: [employer] 10-05-2022 18:08-0500 Body height 172.7 cm Ty Dillard MD Work Phone: [employer] 10-05-2022 18:08-0500 Body mass index (BMI) [Ratio] 38.01 kg/m2 Ty Dillard MD Work Phone: [employer] 10-05-2022 18:08-0500 Body weight 113.4 kg Ty Dillard MD Work Phone: [employer] 10-05-2022 17:28-0500 Diastolic blood pressure 88 mm[Hg] Ty Dillard MD Work Phone: [employer] 10-05-2022 17:28-0500 Systolic blood pressure 122 mm[Hg] Ty Dillard MD Work Phone: [employer] 10-05-2022 17:25-0500 Body temperature 97.59 [degF] Ty Dillard MD Work Phone: [employer] 10-05-2022 17:25-0500 Heart rate 100 /min Ty Dillard MD Work Phone: [facility] [employer] 10-05-2022 17:25-0500 Respiratory rate 17 /min Ty Dillard MD Work Phone: [facility] [employer] 10-05-2022 17:25-0500 SaO2% (BldA) [Mass fraction] 97 % Ty Dillard MD Work Phone: [facility] [employer] 09-27-2022 23:02-0500 Diastolic blood pressure 94 mm[Hg] Oliver Arenas MD Work Phone: [facility] [employer] 09-27-2022 23:02-0500 Heart rate 80 /min Oliver Arenas MD Work Phone: [facility] [employer] 09-27-2022 23:02-0500 Respiratory rate 16 /min Oliver Arenas MD Work Phone: [facility] [employer] 09-27-2022 23:02-0500 SaO2% (BldA) [Mass fraction] 95 % Oliver Arenas MD Work Phone: [facility] [employer] 09-27-2022 23:02-0500 Systolic blood pressure 124 mm[Hg] Oliver Arenas MD Work Phone: [facility] [employer] 09-27-2022 18:46-0500 Body height 172.7 cm Oliver Arenas MD Work Phone: [facility] [employer] 09-27-2022 18:46-0500 Body mass index (BMI) [Ratio] 38.01 kg/m2 Oliver Arenas MD Work Phone: [facility] [employer] 09-27-2022 18:46-0500 Body temperature 97.9 [degF] Oliver Arenas MD Work Phone: [employer] 09-27-2022 18:46-0500 Body weight 113.4 kg Oliver Arenas MD Work Phone: [facility] [employer] [facility] [employer] 07-08-2022 16:08-0400 SaO2% (BldA) [Mass fraction] 98 % Yossi Golden MD Work Phone: [facility] [employer] [facility] [employer] 07-08-2022 16:03-0400 Diastolic blood pressure 90 mm[Hg] Yossi Golden MD Work Phone: [facility] [employer] 07-08-2022 16:03-0400 Systolic blood pressure 130 mm[Hg] Yossi Golden MD Work Phone: [facility] [employer] 07-08-2022 15:15-0400 Body temperature 97.59 [degF] Yossi Golden MD Work Phone: [facility] [employer] [facility] [employer] 07-08-2022 15:15-0400 Heart rate 93 /min Yossi Golden MD Work Phone: [facility] [employer] 03-11-2022 01:19-0400 Diastolic blood pressure 79 mm[Hg] Samy Walker MD [facility] [employer] 03-11-2022 01:19-0400 SaO2% (BldA) [Mass fraction] 97 % Samy Walker MD [facility] [employer] 03-11-2022 01:19-0400 Systolic blood pressure 111 mm[Hg] Samy Walker MD [facility] [employer] 03-11-2022 00:49-0400 Body height 172.7 cm Samy Walker MD [facility] [employer] 03-11-2022 00:49-0400 Body mass index (BMI) [Ratio] 38.01 kg/m2 Samy Walker MD [facility] [employer] 03-11-2022 00:49-0400 Body temperature 97.7 [degF] Samy Walker MD [facility] [employer] 03-11-2022 00:49-0400 Body weight 113.4 kg Samy Walker MD [facility] [employer] 03-11-2022 00:49-0400 Heart rate 103 /min Samy Walker MD [facility] [employer] 03-11-2022 00:49-0400 Respiratory rate 18 /min Samy [facility] 01-04-2022 18:57-0400 Body temperature 97.39 [degF] Renard Watkins MD Work Phone: [facility] 01-04-2022 18:57-0400 Diastolic blood pressure 86 mm[Hg] Renard Watkins MD Work Phone: [facility] 01-04-2022 18:57-0400 Heart rate 94 /min Renard Watkins MD Work Phone: [facility] 01-04-2022 18:57-0400 Respiratory rate 16 /min Renard Watkins MD Work Phone: [facility] 01-04-2022 18:57-0400 SaO2% (BldA) [Mass fraction] 99 % Renard Watkins MD Work Phone: [facility] 01-04-2022 18:57-0400 Systolic blood pressure 138 mm[Hg] Renard Watkins MD Work Phone: [facility] 12-05-2021 00:14-0400 Body temperature 98.6 [degF] Samy Walker MD [facility] 12-05-2021 00:14-0400 Diastolic blood pressure 80 mm[Hg] Samy Walker MD [facility] 12-05-2021 00:14-0400 Heart rate 99 /min Samy Walker MD [facility] 12-05-2021 00:14-0400 Respiratory rate 18 /min Samy Walker MD [facility] 12-05-2021 00:14-0400 SaO2% (BldA) [Mass fraction] 98 % Samy Walker MD [facility] 12-05-2021 00:14-0400 Systolic blood pressure 127 mm[Hg] Samy Walker MD [facility] 09-06-2021 14:43-0500 Body height 172.7 cm Yossi Golden MD Work Phone: [facility] 09-06-2021 14:43-0500 Body mass index (BMI) [Ratio] 38.01 kg/m2 Yossi Golden MD Work Phone: [employer] 09-06-2021 14:43-0500 Body temperature 98.4 [degF] Yossi Golden MD Work Phone: [employer] 09-06-2021 14:43-0500 Body weight 113.4 kg Yossi Goldne MD Work Phone: [employer] 09-06-2021 14:43-0500 Diastolic blood pressure 100 mm[Hg] Yossi Golden MD Work Phone: [employer] 09-06-2021 14:43-0500 Heart rate 113 /min Yossi Golden MD Work Phone: [employer] 09-06-2021 14:43-0500 Respiratory rate 18 /min Yossi Golden MD Work Phone: [employer] 09-06-2021 14:43-0500 SaO2% (BldA) [Mass fraction] 97 % Yossi Golden MD Work Phone: [employer] 09-06-2021 14:43-0500 Systolic blood pressure 132 mm[Hg] Yossi Golden MD Work Phone: [employer] 06-02-2021 18:45-0400 Body temperature 98.1 [degF] Yossi Golden MD Work Phone: [employer] Work Phone: 06-02-2021 18:45-0400 Diastolic blood pressure 111 mm[Hg] Yossi Golden MD Work Phone: [employer] Work Phone: 06-02-2021 18:45-0400 Heart rate 104 /min Yossi Golden MD Work Phone: [employer] Work Phone: 06-02-2021 18:45-0400 Respiratory rate 16 /min Yossi Golden MD Work Phone: [employer] Work Phone: 06-02-2021 18:45-0400 SaO2% (BldA) [Mass fraction] 99 % Yossi Golden MD Work Phone: [employer] Work Phone: 06-02-2021 18:45-0400 Systolic blood pressure 140 mm[Hg] Yossi Golden MD Work Phone: [employer] Work Phone: 03-20-2021 15:00-0400 Diastolic blood pressure 80 mm[Hg] Maryam Klineg DO Work Phone: [employer] Work Phone: 03-20-2021 15:00-0400 Heart rate 62 /min Maryam Klineg DO Work Phone: [employer] Work Phone: 03-20-2021 15:00-0400 Respiratory rate 16 /min Maryam Klineg DO Work Phone: [employer] Work Phone: 03-20-2021 15:00-0400 SaO2% (BldA) [Mass fraction] 98 % Maryam Klineg DO Work Phone: [employer] Work Phone: 03-20-2021 15:00-0400 Systolic blood pressure 159 mm[Hg] Maryam Klineg DO Work Phone: [employer] Work Phone: 03-20-2021 14:15-0400 Body temperature 97.5 [degF] Maryam Clintontrong DO Work Phone: [employer] Work Phone: 03-20-2021 12:45-0400 Body height 172.7 cm Maryam Klineg DO Work Phone: [employer] Work Phone: 03-20-2021 12:45-0400 Body mass index (BMI) [Ratio] 39.23 kg/m2 Maryam Rony Bustle Work Phone: [employer] Work Phone: 03-20-2021 12:45-0400 Body weight 117.03 kg Maryam Uribe Encinas DO Work Phone: [employer] Work Phone: 11-28-2020 00:06-0500 BP Diastolic 98 mm[Hg] [employer] Work Phone: 11-28-2020 00:06-0500 BP Systolic 140 mm[Hg] [employer] Phone: 11-28-2020 00:03-0500 Body Temperature 97.9 [degF] [employer] Work Phone: 11-28-2020 00:03-0500 Pulse (Heart Rate) 108 /min [employer] Work Phone: 11-28-2020 00:03-0500 Pulse Oximetry 98 % [employer] Phone: 11-28-2020 00:03-0500 Respiratory Rate 16 /min [employer] [facility] Phone: 09-26-2020 07:05-0500 Body Temperature 97.81 [degF] [facility] 09-26-2020 07:05-0500 BP Diastolic 72 mm[Hg] [facility] [place] , [place] 09-26-2020 07:05-0500 BP Systolic 140 mm[Hg] [facility] [place] 09-26-2020 07:05-0500 Pulse (Heart Rate) 70 /min [facility] 09-26-2020 07:05-0500 Pulse Oximetry 98 % [facility] , [place] 09-25-2020 22:30-0500 Respiratory Rate 16 /min [facility] 09-24-2020 21:16-0500 BMI (Body Mass Index) 33.45 kg/m2 Guy Kwong [facility], [place] 09-24-2020 21:16-0500 Body weight 99.79 kg Guy Kwong [facility] , [place] 09-24-2020 21:16-0500 Height 172.7 cm [facility] , [place] 09-24-2020 19:45-0500 BP Diastolic 96 mm[Hg] Yossi Golden [facility] , [place] 09-24-2020 19:45-0500 BP Systolic 138 mm[Hg] Yossi Golden [facility] , [place] 09-24-2020 19:45-0500 Pulse (Heart Rate) 97 /min Yossi Golden [facility], [place] 09-24-2020 19:45-0500 Pulse Oximetry 98 % Yossi Golden [facility] , [place] 09-24-2020 17:10-0500 BMI (Body Mass Index) 33.45 kg/m2 Yossi Golden [facility], [place] 09-24-2020 17:10-0500 Body Temperature 96.91 [degF] Yossi Kwong [facility] [place], [place] 09-24-2020 17:10-0500 Body weight 99.79 kg Yossi Kwong [facility] , [place] 09-24-2020 17:10-0500 Height 172.7 cm [facility] [place] 09-24-2020 17:10-0500 Respiratory Rate 20 /[facility] [place] 09-17-2020 16:45-0500 BMI (Body Mass Index) 33.45 kg/m2 Yossi Golden [facility], [place] 09-17-2020 16:45-0500 Body Temperature 96.8 [degF] Yossi Kwong [facility] [place] 09-17-2020 16:45-0500 Body weight 99.79 kg [facility] [place] 09-17-2020 16:45-0500 BP Diastolic 74 mm[Hg] Yossi Golden [facility] , [place] 09-17-2020 16:45-0500 BP Systolic 120 mm[Hg] Yossi Kwong [facility] [place] , [place] 09-17-2020 16:45-0500 Height 172.7 cm Yossi Kwong [facility] , [place] 09-17-2020 16:45-0500 Pulse (Heart Rate) 103 /min Yossi Kwong [facility] [place], [place] 09-17-2020 16:45-0500 Pulse Oximetry 98 % Yossi Kwong [facility] [place] , [place] 09-17-2020 16:45-0500 Respiratory Rate 16 /min [facility]i Kwogn [facility] [place] 08-27-2020 13:47-0500 BP Diastolic 71 mm[Hg] Oliver [facility] [place] 08-27-2020 13:47-0500 BP Systolic 101 mm[Hg] Oliver Arenas [facility] [place], [place] 08-27-2020 13:47-0500 Pulse (Heart Rate) 85 /min [facility] [place] 08-27-2020 13:47-0500 Pulse Oximetry 95 % Oliver Arenas [facility] [place] , [place] 08-27-2020 13:47-0500 Respiratory Rate 16 /min Oliver Kwong [facility], [place] 08-27-2020 10:49-0500 BMI (Body Mass Index) 34.52 kg/m2 Oliver rAenas [facility], [place] 08-27-2020 10:49-0500 Body Temperature 98.01 [degF] Oliver Arenas [facility] [place], [place] 08-27-2020 10:49-0500 Body weight 102.97 kg Oliver [facility] [place] 08-13-2020 13:57-0500 BMI (Body Mass Index) 33.45 kg/m2 [facility] [place] 08-13-2020 13:57-0500 Body Temperature 98.6 [degF] [facility] [place] 08-13-2020 13:57-0500 Body weight 99.79 kg Oliver Powers [facility] [place] 08-13-2020 13:57-0500 BP Diastolic 98 mm[Hg] Oliver Kwong [facility] [place] 08-13-2020 13:57-0500 BP Systolic 149 mm[Hg] Oliver Kwong [facility] [place] 08-13-2020 13:57-0500 Height 172.7 cm Oliver Kwong [facility] [place] 08-13-2020 13:57-0500 Pulse (Heart Rate) 100 /min Oliver Kwong [facility] [place] 08-13-2020 13:57-0500 Pulse Oximetry 99 % Oliver Kwong [facility] [place] 08-13-2020 13:57-0500 Respiratory Rate 16 /min Oliver Arenas [facility] [place], [place] 06-15-2020 06:43-0400 Body Temperature 99.61 [degF] Krystina Mario Alberto [facility] [place] 06-15-2020 06:43-0400 BP Diastolic 75 mm[Hg] [facility] [place] , [place] 06-15-2020 06:43-0400 BP Systolic 114 mm[Hg] [facility] [place] [facility] [place] 06-15-2020 06:43-0400 Pulse Oximetry 93 % [facility] [place] [facility] [place] 06-15-2020 06:43-0400 Respiratory Rate 18 /min Krystina Mario Alberto [facility] [place] 06-15-2020 04:45-0400 BMI (Body Mass Index) 34.14 kg/m2 Krystina Mario Alberto [facility] [place], [place] 06-15-2020 04:45-0400 Body weight 101.83 kg [facility] [place] [facility] [place] 06-15-2020 04:45-0400 Pulse (Heart Rate) 98 /min [facility] [place] [place] 06-14-2020 08:05-0400 Height 172.7 cm [facility] [place] [facility] [place] 05-24-2020 08:10-0400 BP Diastolic 75 mm[Hg] Ramila Elmore [facility] [place] , [place] 05-24-2020 08:10-0400 BP Systolic 125 mm[Hg] [facility] [place] , [place] 05-24-2020 08:10-0400 Pulse (Heart Rate) 74 /min Ramila Elmore [facility], [place] 05-24-2020 08:10-0400 Respiratory Rate 16 /min Ramila Kwong [facility], [place] 05-24-2020 08:09-0400 Body Temperature 97.7 [degF] Ramila Kwong [facility], [place] 05-22-2020 19:32-0400 Pulse Oximetry 100 % Ramilasky Elmore [facility] , [place] 05-22-2020 16:41-0400 BMI (Body Mass Index) 35.78 kg/m2 Ramila Elmore [facility], [place] 05-22-2020 16:41-0400 Body weight 108.32 kg Ramila Elmore [facility] , [place] 05-22-2020 16:41-0400 Height 174 cm Ramila Elmore [facility] , [place] 05-19-2020 14:15-0400 Body Temperature 98.1 [degF] [facility] [place] 05-19-2020 14:15-0400 Respiratory Rate 18 /min [facility] [place] 05-19-2020 14:14-0400 BP Diastolic 91 mm[Hg] [facility] [place] 05-19-2020 14:14-0400 BP Systolic 127 mm[Hg] [facility] [place] 05-19-2020 14:14-0400 Pulse (Heart Rate) 110 /min [facility] [place] 04-29-2020 13:38-0400 BP Diastolic 64 mm[Hg] [facility] [place] 04-29-2020 13:38-0400 BP Systolic 118 mm[Hg] [facility] [place] [place] 04-29-2020 13:38-0400 Pulse (Heart Rate) 94 /min [facility] [place] 04-29-2020 13:27-0400 Respiratory Rate 18 /min [facility] [place] 04-07-2020 23:55-0400 BMI (Body Mass Index) 38.22 kg/m2 Colten Kwong [facility] [place], [place] 04-07-2020 23:55-0400 Body weight 110.68 kg Colten Kwong [facility] , [place] 04-07-2020 23:55-0400 Height 170.2 cm Colten Kowng [facility] , [place] 04-07-2020 23:21-0400 Body Temperature 97.7 [degF] Colten Kwong [facility] [place] 04-07-2020 23:21-0400 BP Diastolic 83 mm[Hg] [facility] [place] , 04-07-2020 23:21-0400 BP Systolic 138 mm[Hg] [facility] [place] , [place] 04-07-2020 23:21-0400 Pulse (Heart Rate) 106 /min Colten Kwong [facility], [place] 04-07-2020 23:21-0400 Respiratory Rate 20 /min Colten Kwong [facility] [place] 04-03-2020 00:26-0400 Pulse Oximetry 95 % [facility] [place] 04-02-2020 23:35-0400 BP Diastolic 62 mm[Hg] [facility] [place], 04-02-2020 23:35-0400 BP Systolic 122 mm[Hg] [facility] [place] 04-02-2020 23:35-0400 Pulse (Heart Rate) 121 /min [facility] [place] 04-02-2020 22:03-0400 Body Temperature 98.29 [degF] [facility] [place] 04-02-2020 22:03-0400 Respiratory Rate 16 /min [facility] [place] 03-29-2020 19:46-0400 BP Diastolic 55 mm[Hg] Ramila Elmore [facility] [place] , 03-29-2020 19:46-0400 BP Systolic 101 mm[Hg] Ramila Elmore [facility] [place] , [place] 03-29-2020 19:46-0400 Pulse (Heart Rate) 98 /min Ramila Elmore [facility], [place] 03-29-2020 18:09-0400 BMI (Body Mass Index) 37.4 kg/m2 Ramila Elmore [facility], [place] 03-29-2020 18:09-0400 Body Temperature 97.5 [degF] Ramila Kwong [facility] [place] 03-29-2020 18:09-0400 Body weight 111.58 kg Ramila Elmore [facility] , [place] 03-29-2020 18:090400 Height 172.7 cm Ramila Elmore [facility] , [place] 03-29-2020 18:09-0400 Respiratory Rate 16 /min Ramila Kwong [facility] [place] 02-26-2020 18:45-0400 BP Diastolic 74 mm[Hg] [facility] [place] 02-26-2020 18:45-0400 BP Systolic 129 mm[Hg] [facility] [place] 02-26-2020 18:45-0400 Pulse (Heart Rate) 90 /min [facility], [place] 02-26-2020 17:18-0400 Body Temperature 96.8 [degF] [facility] [place] 02-26-2020 17:18-0400 Respiratory Rate 18 /min [facility], [place] 02-01-2020 20:04-0400 BP Diastolic 53 mm[Hg] [facility] [place] , [place] 02-01-2020 20:04-0400 BP Systolic 102 mm[Hg] [facility] [place] , [place] 02-01-2020 20:04-0400 Pulse (Heart Rate) 88 /min [facility], [place] 02-01-2020 19:38-0400 BMI (Body Mass Index) 38.01 kg/m2 [facility], [place] 02-01-2020 19:38-0400 Body weight 113.4 kg [facility] , [place] 02-01-2020 19:38-0400 Height 172.7 cm [facility] , [place] 02-01-2020 19:21-0400 Body Temperature 98.01 [degF] [facility] [place] 02-01-2020 19:21-0400 Respiratory Rate 18 /min [facility], [place] 02-01-2020 18:15-0400 BP Diastolic 63 mm[Hg] [facility] [place] 02-01-2020 18:15-0400 BP Systolic 111 mm[Hg] [facility] , [place] 02-01-2020 18:15-0400 Pulse (Heart Rate) 96 /min [facility] [place] 02-01-2020 18:15-0400 Pulse Oximetry 100 % [facility] , [place] 02-01-2020 18:15-0400 Respiratory Rate 18 /min [facility], [place] 02-01-2020 17:03-0400 BMI (Body Mass Index) 38.01 kg/m2 [facility], [place] 02-01-2020 17:03-0400 Body Temperature 97.9 [degF] [facility] [place] 02-01-2020 17:03-0400 Body weight 113.4 kg [facility] , [place] 02-01-2020 17:03-0400 Height 172.7 cm [facility] [place] 01-10-2020 23:47-0400 BP Diastolic 67 mm[Hg] [facility] , [place] 01-10-2020 23:47-0400 BP Systolic 121 mm[Hg] [facility] , [place] 01-10-2020 23:47-0400 Pulse (Heart Rate) 83 /min [facility] [place] 01-10-2020 23:47-0400 Pulse Oximetry 97 % [facility] , [place] 01-10-2020 21:29-0400 Body Temperature 97.5 [degF] [facility], [place] 01-10-2020 21:28-0400 Respiratory Rate 16 /min [facility], [place] 12-18-2019 12:49-0400 Body weight 93 kg [facility] PowersThe[facility] [place] 12-14-2019 16:53-0400 BP Diastolic 56 mm[Hg] [facility]i [facility] [place] 12-14-2019 16:53-0400 BP Systolic 128 mm[Hg] Yossi Kwong [facility] , [place] 12-14-2019 16:05-0400 BMI (Body Mass Index) 38.62 kg/m2 [facility]i [facility] [place] 12-14-2019 16:05-0400 Body Temperature 98.8 [degF] [facility] [place] 12-14-2019 16:05-0400 Body weight 115.21 kg [facility]i Kwong [facility] [place] 12-14-2019 16:05-0400 Pulse (Heart Rate) 103 /min [facility] Kw[facility] [place] 12-14-2019 16:05-0400 Pulse Oximetry 99 % [facility] [place] 12-14-2019 16:05-0400 Respiratory Rate 19 /min [facility] [place] 09-24-2019 18:47-0500 Body height 172.7 cm Rod Conte MD Work Phone: [employer] Work Phone: 09-24-2019 18:47-0500 Body mass index (BMI) [Ratio] 40.45 kg/m2 Rod Conte MD Work Phone: [employer] Work Phone: 09-24-2019 18:47-0500 Body weight 120.66 kg Rod Conte MD Work Phone: [employer] Work Phone: 09-24-2019 18:47-0500 Diastolic blood pressure 64 mm[Hg] Rod Conte MD Work Phone: [employer] Work Phone: 09-24-2019 18:47-0500 Heart rate 110 /min Rod Conte MD Work Phone: [employer] Work Phone: 09-24-2019 18:47-0500 SaO2% (BldA) [Mass fraction] 97 % Rod Conte MD Work Phone: [employer] Work Phone: 09-24-2019 18:47-0500 Systolic blood pressure 98 mm[Hg] Rod Conte MD Work Phone: [employer] Work Phone: 09-24-2019 18:46-0500 Body temperature 98.71 [degF] Rod Conte MD Work Phone: [employer] Work Phone: 09-24-2019 18:46-0500 Respiratory rate 16 /min Rod Conte MD Work Phone: [employer] Work Phone: 07-29-2019 01:46-0500 BP Diastolic 77 mm[Hg] [facility] , [place] 07-29-2019 01:46-0500 BP Systolic 119 mm[Hg] [facility] , [place] 07-29-2019 01:46-0500 Pulse Oximetry 95 % [facility] , [place] 07-29-2019 01:01-0500 Pulse (Heart Rate) 82 /min [facility], [place] 07-28-2019 22:24-0500 BMI (Body Mass Index) 38.47 kg/m2 [facility], [place] 07-28-2019 22:24-0500 Body Temperature 96.91 [degF] [facility] [place] 07-28-2019 22:24-0500 Body weight 114.76 kg [facility] , [place] 07-28-2019 22:24-0500 Height 172.7 cm [facility] , [place] 07-28-2019 22:24-0500 Respiratory Rate 18 /min [facility], [place] 05-25-2019 21:45-0400 BP Diastolic 80 mm[Hg] Yossi Kwong [facility] , [place] 05-25-2019 21:45-0400 BP Systolic 108 mm[Hg] Yossi Kwong [facility] , [place] 05-25-2019 21:45-0400 Pulse (Heart Rate) 76 /min Yossi Kwong [facility], [place] 05-25-2019 21:45-0400 Respiratory Rate 18 /min Yossi Kwong [facility], [place] 05-25-2019 20:32-0400 Pulse Oximetry 98 % Yossi Kwong [facility] , [place] 05-25-2019 19:54-0400 BMI (Body Mass Index) 39.99 kg/m2 Yossi Kwong [facility], [place] 05-25-2019 19:54-0400 Body Temperature 97.81 [degF] Yossi Kwong [facility], [place] 05-25-2019 19:54-0400 Body weight 119.3 kg Yossi Kwong [facility] , [place] 05-19-2019 01:08-0400 BP Diastolic 101 mm[Hg] Rod Conte [facility] , [place] 05-19-2019 01:08-0400 BP Systolic 152 mm[Hg] Rod Conte [facility] , [place] 05-19-2019 01:08-0400 Pulse (Heart Rate) 110 /min Rod Conte [facility], [place] 05-19-2019 01:08-0400 Pulse Oximetry 97 % Rod Conte [facility] , [place] 05-19-2019 01:08-0400 Respiratory Rate 16 /min Rod Conte [facility], [place] 05-19-2019 01:05-0400 Body Temperature 97.59 [degF] Roderic Conte [place], [place] Encounters Encounter Date Encounter Type Care Provider Facility Start: 04-23-2025 End: 04-23-2025 Telephone encounter Yajaira Lackey DO Work Phone: Colorectal Surgery Start: 04-05-2025 End: 04-05-2025 ambulatory Merrill Sheffield PRECIPITATOR OPERATOR-CHIEF MINISTER Facility[facility] Start: 03-23-2025 End: 03-23-2025 Admission to same day surgery center Ronaldo Sánchez DO Work Phone: General Surgery Comment on above: Fax number Start: 03-23-2025 End: 03-23-2025 ambulatory Ronaldo Ritter Princess DO Work Phone: General Surgery Start: 02-17-2025 End: 02-17-2025 Patient encounter procedure Best Reynoso MD Work Phone: Pain Management Comment on above: Chronic generalized abdominal pain (Primary Dx); Gastroparesis; 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); Tobacco dependence; Episodic cannabis use Start: 02-17-2025 End: 02-17-2025 ambulatory YAJAIRA S LACKEY Facility:[facility] Start: 02-16-2025 End: 03-24-2025 E-mail encounter from caregiver [facility] Provider General Surgery Start: 02-16-2025 End: 03-24-2025 Follow-up encounter [facility] Provider General Surgery Comment on above: Follow up Start: 02-12-2025 End: 02-12-2025 Emergency department patient visit MARCO ANTONIO Sheyla MARCELLUS [facility] Start: 02-12-2025 End: 02-12-2025 ambulatory RONALDO SÁNCHEZ Facility:[facility] Start: 02-09-2025 End: 02-09-2025 Emergency department patient visit YOSSI Kwong [facility] Comment on above: Gastroparesis (Prima ry Dx) Start: 02-05-2025 End: 02-05-2025 Emergency department patient visit Rod Colmenares MD Work Phone: [facility] Comment on above: Right upper quadrant abdominal pain (Primary Dx) Start: 02-02-2025 End: 02-02-2025 Orders Only Yajaira S Lackey DO Work Phone: Gastroenterology Comment on above: Chronic generalized abdominal pain (Primary Dx) Start: 02-01-2025 End: 02-02-2025 ambulatory Yajaira S Lackey DO Work Phone: Gastroenterology Comment on above: Help Start: 02-01-2025 End: 02-01-2025 Emergency department patient visit Yossi Golden MD Facility:[facility] Start: 01-26-2025 End: 01-26-2025 Emergency department patient visit Alphonso Sullivan [facility] Start: 01-25-2025 End: 01-26-2025 Telephone encounter Yajaira Lackey DO Work Phone: [facility] Comment on above: Patient Question (Gopal tanner was in ER today in [place] states she is in a lot of pain and would like to speak with someone ) Start: 01-25-2025 End: 01-25-2025 Emergency department patient visit Yossi Golden MD Facility:[facility] Start: 01-22-2025 End: 01-22-2025 Telephone encounter Yajaira Lackey DO Work Phone: General Surgery Comment on above: Medication Authoriza tion ([place] for Gimoti (renewal)/) Start: 01-20-2025 End: 01-20-2025 Refill [facility]ossi Golden MD [facility] Comment on above: DDD (degenerative di sc disease), lumbar Start: 01-18-2025 End: 01-18-2025 Emergency department patient visit Yossi Golden MD Facility:[facility] Start: 01-13-2025 ambulatory RONALDO SÁNCHEZ Facilit y:[facility] Start: 01-01-2025 End: 01-01-2025 Emergency department patient visit Imelda Huynh MD Work Phone: [facility] Comment on above: Right upper quadrant abdominal pain (Primary Dx) Start: 12-28-2024 End: 12-28-2024 ambulatory Merrill Sheffield PRECIPITATOR OPERATOR-CHIEF MINISTER Facility[facility] Start: 12-24-2024 End: 12-24-2024 Admission to establishment [facility] Work Phone: Pre Anesthesia Start: 12-24-2024 End: 12-24-2024 ambulatory RONALDO SÁNCHEZ Facility:[facility] Start: 12-24-2024 End: 12-24-2024 Anesthesia consultation [place] [id number] Work Phone: Pre Anesthesia Comment on above: Pre-op evaluation (P rimary Dx); Essential hypertension; Mild concentric left ventricular hypertrophy (LVH); Nonalcoholic fatty liver; Factor V Leiden (HCC); Hypercoagulable state (HCC); Dyslipidemia; History of pulmonary embolism; Obesity with body mass index 30 or greater; Mild intermittent asthma without complication (HCC); Diabetic gastroparesis associated with type 2 diabetes mellitus (HCC) Start: 12-24-2024 End: 12-24-2024 Preprocedural examination done [facility] Work Phone: [facility] Start: 12-15-2024 End: 12-15-2024 Telephone encounter Ronaldo Sánchez DO Work Phone: General Surgery Comment on above: Care Coordination (S chedule procedure and follow up appt////) Start: 12-15-2024 End: 12-15-2024 Admission to same day surgery center Ronaldo Sánchez DO Work Phone: General Surgery Comment on above: Gastroparesis (Prima ry Dx); Gastroesophageal reflux disease, unspecified whether esophagitis present; Functional constipation Start: 12-15-2024 End: 12-15-2024 ambulatory [facility] Facility:[facility] Start: 12-15-2024 End: 12-15-2024 Telemedicine consultation with patient Ronaldo Ritter Princess ROSA Work Phone: General Surgery Start: 12-04-2024 End: 12-04-2024 ambulatory Yajaira Lackey DO Work Phone: Gastroenterology Comment on above: EGG RESULTS Start: 12-04-2024 End: 12-04-2024 Patient encounter procedure Yajaira Lackey DO Work Phone: Gastroenterology Start: 12-03-2024 End: 12-03-2024 Telephone encounter Yajaira Lackey DO Work Phone: Gastroenterology Start: 12-02-2024 End: 12-02-2024 ambulatory [facility] Facility[facility] Start: 12-02-2024 End: 12-02-2024 Telephone encounter Yajaira Lackey DO Work Phone: Gastroenterology Comment on above: Medication Preauthor ization ([place] for Gimoti) Start: 12-02-2024 End: 12-02-2024 ambulatory YAJAIRA LACKEY Facility:[facility] Start: 12-02-2024 End: 12-02-2024 Patient encounter procedure Yajaira Lackey DO Work Phone: Gastroenterology Comment on above: Gastroparesis (Prima ry Dx); Diabetic gastroparesis (HCC) (HCC); Chronic idiopathic constipation Gastroparesis (Prima ry Dx) Start: 11-06-2024 End: 11-06-2024 Clinisync Result Encounter Generic External Data Provider [facility] External Department Unsolicited Start: 11-06-2024 End: 11-06-2024 Clinisync Result Encounter Generic External Data Provider [facility] External Department Unsolicited Start: 11-05-2024 End: 11-05-2024 Clinisync Result Encounter Generic External Data Provider [facility] External Department Unsolicited Start: 11-05-2024 End: 11-05-2024 Clinisync Result Encounter Generic External Data Provider [facility] External Department Unsolicited Start: 11-04-2024 End: 11-06-2024 ambulatory YOSSI GOLDEN [facility] Start: 11-04-2024 End: 11-06-2024 Emergency department patient visit Ric Ambrose MD Work Phone: [facility] Comment on above: Acute pancreatitis, unspecified complication status, unspecified pancreatitis type (Primary Dx) Start: 10-22-2024 End: 10-22-2024 Orders Only Yossi Golden MD Work Phone: [facility] Comment on above: Generalized anxiety disorder (CMS/HCC) Start: 10-20-2024 End: 10-21-2024 Evaluation and management of inpatient Kaylie Michelle Rocais DO Work Phone: [email or web address] Comment on above: Acute pancreatitis, unspecified complication status, unspecified pancreatitis type (Primary Dx) Start: 10-17-2024 End: 10-17-2024 Emergency department patient visit JON BARRIOS Facility:[facility] Start: 10-15-2024 End: 10-15-2024 Emergency department patient visit Cameron Conklin [facility] Start: 10-13-2024 End: 10-13-2024 ambulatory Aly Beverly Facility:[facility] Start: 10-13-2024 End: 10-13-2024 Patient encounter procedure Aly Beverly [facility] Start: 10-08-2024 End: 10-08-2024 Emergency department patient visit Alphonso Sullivan [facility] Start: 10-08-2024 End: 10-08-2024 Office outpatient visit 25 minutes Yossi Golden MD Work Phone: [facility] Comment on above: Type 2 diabetes chuy itus with hyperglycemia, with long-term current use of insulin (CMS/HCC) (Primary Dx); Diabetic gastroparesis associated with type 2 diabetes mellitus (CMS/HCC); Dyslipidemia (CMS/HCC); Nonalcoholic fatty liver; Major depressive disorder, recurrent, moderate (CMS/HCC); Class 2 severe obesity due to excess calories with serious comorbidity and body mass index (BMI) of 37.0 to 37.9 in adult (CMS/HCC); Type 2 diabetes mellitus with other specified complication (CMS/HCC) Start: 10-08-2024 End: 10-08-2024 ambulatory YOSSI GOLDEN Not Available Start: 10-06-2024 End: 10-06-2024 Emergency department patient visit Phan Sandy [facility] Start: 10-04-2024 End: 10-05-2024 Emergency department patient visit Rob Leach Facility:[facility] Start: 10-01-2024 End: 10-01-2024 ambulatory Merrill Sheffield APRN-CHIEF MINISTER Facility:[facility] Start: 09-30-2024 End: 09-30-2024 Clinisync Result Encounter Generic External Data Provider [facility] External Department Unsolicited Start: 09-30-2024 End: 09-30-2024 Clinisync Result Encounter Generic External Data Provider [facility] External Department Unsolicited Start: 09-30-2024 End: 09-30-2024 Emergency department patient visit Cameron Conklin [facility] Start: 09-30-2024 End: 09-30-2024 ambulatory MERRILL Aniya JEANKANWAL [facility] Start: 09-30-2024 End: 09-30-2024 Subsequent hospital visit by physician Yossi Golden MD Work Phone: [facility] Laboratory Start: 09-24-2024 End: 09-24-2024 Telephone encounter Yajaira Lackey DO Work Phone: Gastroenterology Comment on above: Appointment Start: 09-17-2024 End: 09-17-2024 Emergency department patient visit Rod Colmenares MD Work Phone: [facility] Emergency Department Comment on above: Nausea and vomiting, unspecified vomiting type (Primary Dx) Start: 09-10-2024 End: 09-10-2024 ambulatory Lu Talal Sarmini Facility:[facility] Start: 09-10-2024 End: 09-10-2024 Patient encounter procedure Lu Srinial Sarmini [facility] Start: 09-02-2024 End: 09-02-2024 ambulatory Lu Talal Tirsomini Facility:[facility] Start: 08-24-2024 End: 08-24-2024 Emergency department patient visit Phan Sandy [facility] Start: 08-14-2024 ambulatory Facility:[facility] Start: 08-13-2024 End: 08-14-2024 ambulatory Albertoanekaleb ARMENTAU Facility:[facility] Start: 08-13-2024 Emergency department patient visit Cameron Conklin Facility:[facility] Start: 08-13-2024 End: 08-14-2024 Observation Beatriz GREEN [facility] Start: 08-11-2024 End: 08-11-2024 Bamboo flowsheet Yossi Golden MD Work Phone: [facility] Start: 08-11-2024 End: 08-11-2024 Bamboo flowsheet Yossi Golden MD Work Phone: [facility] Start: 08-11-2024 End: 08-11-2024 Office outpatient visit 15 minutes Yossi Golden MD Work Phone: [facility] Comment on above: 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 (CMS/HCC) (Primary Dx); Type 2 diabetes mellitus with hyperglycemia, with long-term current use of insulin (CMS/HCC); Class 2 severe obesity due to excess calories with serious comorbidity and body mass index (BMI) of 37.0 to 37.9 in adult (CMS/HCC); Nonalcoholic fatty liver Start: 08-11-2024 End: 08-11-2024 ambulatory YOSSI GOLDEN Not Available Start: 08-10-2024 End: 08-10-2024 ambulatory Aly Beverly Facility:[facility] Start: 08-10-2024 End: 08-10-2024 Patient encounter procedure Lu Talal Tirsomini [facility] Start: 08-07-2024 End: 08-07-2024 Emergency department patient visit Phan Sandy [facility] Start: 08-06-2024 End: 08-07-2024 Emergency department patient visit Cameron Conklin [facility] Start: 08-06-2024 End: 08-06-2024 Emergency department patient visit Chemo Solo MD Work Phone: [facility] ED Comment on above: Generalized abdomina l pain (Primary Dx) Start: 07-29-2024 End: 07-29-2024 Emergency department patient visit Alphonso Sullivan [facility] Start: 07-29-2024 End: 07-29-2024 ambulatory Aly Beverly Facility:[facility] Start: 07-29-2024 End: 07-29-2024 Patient encounter procedure Aly Crowleyi [facility] Start: 07-09-2024 End: 07-09-2024 Bamboo flowsheet Yossi Golden MD Work Phone: [facility] Start: 07-09-2024 End: 07-09-2024 Bamboo flowsheet Yossi Golden MD Work Phone: [facility] Start: 07-09-2024 End: 07-09-2024 Office outpatient visit 25 minutes Yossi Golden MD Work Phone: [facility] Comment on above: 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 (CMS/HCC) (Primary Dx); Type 2 diabetes mellitus with hyperglycemia, with long-term current use of insulin (CMS/HCC); Major depressive disorder, recurrent, moderate (CMS/HCC); Nonalcoholic fatty liver Start: 07-09-2024 End: 07-09-2024 ambulatory YOSSI GOLDEN Not Available Start: 07-08-2024 End: 07-08-2024 Clinisync Result Encounter Generic External Data Provider [facility] External Department Unsolicited Start: 07-08-2024 End: 07-08-2024 Clinisync Result Encounter Generic External Data Provider [facility] External Department Unsolicited Start: 07-07-2024 End: 07-07-2024 Clinisync Result Encounter Generic External Data Provider [facility] External Department Unsolicited Start: 07-07-2024 End: 07-07-2024 Clinisync Result Encounter Generic External Data Provider [facility] External Department Unsolicited Start: 07-07-2024 End: 07-08-2024 ambulatory YOSSI [facility] Start: 07-07-2024 End: 07-08-2024 Emergency department patient visit Kaylie Sommer DO Work Phone: [facility]G Comment on above: Generalized abdomina l pain (Primary Dx) Start: 07-05-2024 End: 07-05-2024 Emergency department patient visit Cameron Conklin Facility:[facility] Start: 06-30-2024 End: 06-30-2024 ambulatory Charli Goodson APRN-CHIEF MINISTER [facility] Start: 06-23-2024 End: 06-23-2024 Refill Yossi Golden MD Work Phone: [facility] Comment on above: Generalized anxiety disorder (CMS/HCC) (Primary Dx); DDD (degenerative disc disease), lumbar Start: 06-20-2024 End: 06-20-2024 Emergency department patient visit Rob Leach [facility] Start: 06-18-2024 End: 06-18-2024 ambulatory Aly Beverly Facility:[facility] Start: 06-18-2024 End: 06-18-2024 Patient encounter procedure XXXX NONE [facility] Start: 06-16-2024 End: 06-16-2024 Emergency department patient visit YOSSI PAZ [facility] Start: 06-14-2024 End: 06-14-2024 Emergency department patient visit YOSSI BRANDI [facility] Start: 06-09-2024 End: 06-09-2024 Telephone encounter Yossi Golden MD Work Phone: [facility] Start: 06-09-2024 End: 06-09-2024 Emergency department patient visit Chavo Squires Facility:[facility] Start: 06-08-2024 End: 06-08-2024 Bamboo flowsheet Yossi Golden MD Work Phone: [facility] Start: 06-08-2024 End: 06-08-2024 Bamboo flowsheet Yossi Golden MD Work Phone: [facility] Start: 06-08-2024 End: 06-08-2024 Office outpatient visit 25 minutes Yossi Golden MD Work Phone: [facility] Comment on above: 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 (CMS/HCC) (Primary Dx); Type 2 diabetes mellitus with hyperglycemia, with long-term current use of insulin (CMS/HCC); Major depressive disorder, recurrent, moderate (HCC) (CMS/HCC) Start: 06-08-2024 End: 06-08-2024 ambulatory YOSSI GOLDEN Not Available Start: 06-08-2024 End: 06-08-2024 Emergency department patient visit YOSSI GOLDEN [facility] Start: 06-01-2024 End: 06-01-2024 ambulatory [facility] Facility:[facility] Start: 06-01-2024 End: 06-01-2024 Patient encounter procedure [facility] Start: 05-27-2024 End: 05-27-2024 ambulatory Yossi Golden MD Facility:[facility] Start: 05-26-2024 End: 05-26-2024 Emergency department patient visit Yoly Strange MD Work Phone: [facility] ED Comment on above: Epigastric pain (Katherine donna Dx) Start: 05-23-2024 End: 05-24-2024 Evaluation and management of inpatient Naima Ramirezkenangumaro Facility:[facility] Start: 05-22-2024 Emergency department patient visit Cameron Conklin Facility:[facility] Start: 05-22-2024 End: 05-24-2024 Evaluation and management of inpatient Naima Sewell [facility] Start: 05-20-2024 End: 05-20-2024 Emergency department patient visit YOSSI PAZ [facility] Start: 05-15-2024 End: 05-15-2024 Emergency department patient visit Yossi Golden MD Facility:[facility] Start: 05-14-2024 End: 05-16-2024 ambulatory YOSSI [facility] Start: 05-14-2024 End: 05-16-2024 Subsequent hospital visit by physician Sanjay [address] Nuclear Medicine Comment on above: Arrived Diabetic gastropares is (HCC) Start: 05-04-2024 Procedure Monika Bell rne Other [facility] Office Start: 05-01-2024 End: 05-01-2024 Emergency department patient visit Yossi Golden MD Facility:[facility] Start: 04-29-2024 End: 04-29-2024 ambulatory YOSSI GOLDEN Not Available Start: 04-27-2024 End: 04-27-2024 Emergency department patient visit Nehal Rapp DO Facility:[facility] Start: 04-26-2024 End: 04-26-2024 Emergency department patient visit Yossi Golden MD Facility:[facility] Start: 04-24-2024 End: 04-24-2024 Emergency department patient visit Yossi Golden MD Facility:[facility] Start: 04-21-2024 End: 04-21-2024 ambulatory YOSSI [facility] Start: 04-21-2024 End: 04-21-2024 Subsequent hospital visit by physician Yossi Golden MD Work Phone: [facility] Start: 04-21-2024 End: 04-21-2024 ambulatory YOSSI GOLDEN Not Available Start: 04-20-2024 End: 04-20-2024 Emergency department patient visit Sybil Abel MD Facility:[facility] Start: 04-09-2024 End: 04-09-2024 Emergency department patient visit YOSSI [facility] Start: 04-06-2024 End: 04-06-2024 Emergency department patient visit YOSSI PAZ [facility] Start: 03-19-2024 End: 03-19-2024 ambulatory Devang Alejandre PA-C Facility:[facility] Start: 03-15-2024 End: 03-15-2024 Emergency department patient visit Sybil Abel MD Facility:[facility] Start: 03-10-2024 End: 03-11-2024 Emergency department patient visit Kaden Verma DO Facility:[facility] Start: 03-09-2024 End: 03-09-2024 Emergency department patient visit [facility] Start: 02-26-2024 End: 02-26-2024 ambulatory Yossi Golden MD [facility] Start: 02-12-2024 End: 02-12-2024 ambulatory Yossi Golden MD Facility:[facility] Start: 02-07-2024 End: 02-07-2024 Emergency department patient visit Katie Ohara APRN-CHIEF MINISTER Facility:[facility] Start: 02-05-2024 End: 02-05-2024 Emergency department patient visit Yossi Golden MD Work Phone: [facility] ED Comment on above: Chronic abdominal pa in (Primary Dx); Diarrhea, unspecified type Start: 01-30-2024 End: 01-30-2024 Emergency department patient visit Charly Seay DO Work Phone: [facility] ED Comment on above: Chest pain, unspecif ied type (Primary Dx) Start: 01-04-2024 End: 01-04-2024 Emergency department patient visit Gloria Bosch MD Work Phone: [facility] ED Comment on above: Diarrhea, unspecifie d type (Primary Dx); Viral illness Start: 11-23-2023 End: 11-24-2023 Emergency department patient visit Samy Walker MD [facility] ED Comment on above: Lower abdominal pain (Primary Dx) Start: 11-13-2023 End: 11-14-2023 Emergency department patient visit Nilda Deal MD Facility:[facility] Start: 10-14-2023 End: 10-14-2023 Emergency department patient visit Samy Walker MD [facility] ED Comment on above: Influenza A (Primary Dx) Start: 09-04-2023 End: 09-04-2023 Subsequent hospital visit by physician Bridgett Zambrano PTA [facility] Physical Therapy Start: 03-23-2023 End: 03-23-2023 Emergency department patient visit Nazia Ragsdale MD Work Phone: [facility] ED Comment on above: Syncope, unspecified syncope type (Primary Dx) Start: 02-18-2023 End: 02-18-2023 Emergency department patient visit Samy Walker MD [facility] ED Comment on above: Hyperglycemia (Prima ry Dx); Diarrhea, unspecified type Start: 12-26-2022 End: 12-26-[address] YOSSI GOLDEN Facility:[facility] Start: 12-24-2022 End: 12-24-2022 Emergency department patient visit Anahi J Lenin DO Work Phone: [facility] ED Comment on above: Chest pain, unspecif ied type (Primary Dx) Start: 12-04-2022 End: 12-04-2022 Patient encounter procedure Yajaira GARDNER General Surgery Nill/Said Will Start: 11-21-2022 End: 11-21-2022 Admission to same day surgery center Yajaira GARDNER [facility] General Surgery [place] Start: 11-21-2022 End: 11-21-2022 Subsequent hospital visit by physician Yossi Golden MD Work Phone: [facility] Start: 11-12-2022 End: 11-12-2022 Subsequent hospital visit by physician Maryam Encinas DO Work Phone: [facility] OR Comment on above: Post-op pain (Primar y Dx); Dysmenorrhea Start: 11-01-2022 End: 11-01-2022 Emergency department patient visit Yossi Golden MD Work Phone: [facility] ED Comment on above: Chronic pelvic pain in female (Primary Dx) Start: 10-05-2022 End: 10-05-2022 Emergency department patient visit Ty Dillard MD Work Phone: [facility] ED Comment on above: Endometriosis (Prima ry Dx) Start: 09-27-2022 End: 09-28-2022 Emergency department patient visit Oliver Aernas MD Work Phone: [facility] ED Comment on above: Lower abdominal pain (Primary Dx); Endometriosis; History of PCOS; Morbid obesity due to excess calories (HCC) Start: 07-08-2022 End: 07-08-2022 Emergency department patient visit Yossi Golden MD Work Phone: [facility] ED Comment on above: Bronchitis (Primary Dx) Start: 04-23-2022 End: 04-23-[address] YOSSI GOLDEN Facility:[facility] Start: 03-23-2022 Encounter for genera l adult medical examination without abnormal findings DR YOSSI GOLDEN [facility] Start: 03-21-2022 End: 03-22-[address] YOSSI GOLDEN Facility:[facility] Start: 03-21-2022 End: 03-22-2022 Encounter for general adult medical examination without abnormal findings DR YOSSI GOLDEN Facility:[facility] Start: 03-11-2022 End: 03-11-2022 Emergency department patient visit Samy Walker MD [facility] ED Comment on above: Generalized abdomina l pain (Primary Dx); Diarrhea, unspecified type; Nausea Start: 01-04-2022 End: 01-04-2022 Emergency department patient visit Renard Watkins MD Work Phone: [facility] ED Comment on above: Musculoskeletal pain (Primary Dx) Start: 12-05-2021 End: 12-05-2021 Emergency department patient visit Samy Walker MD [facility] ED Comment on above: Hyperglycemia (Prima ry Dx) Start: 09-06-2021 End: 09-06-2021 Emergency department patient visit Yossi Golden MD Work Phone: [facility] ED Comment on above: Cough (Primary Dx); Acute upper respiratory infection; Encounter for laboratory testing for COVID-19 virus Start: 06-02-2021 End: 06-02-2021 Emergency department patient visit Yossi Golden MD Work Phone: [facility] ED Comment on above: Acute bronchitis, un specified organism (Primary Dx) Start: 05-26-2021 End: 05-28-2021 Subsequent hospital visit by physician [facility] Radiologist [facility] Radiology Comment on above: Abdominal pain, epig astric Start: 05-22-2021 End: 05-22-2021 [facility] Covid Scre ening Start: 05-22-2021 End: 05-22-2021 Subsequent hospital visit by physician [facility] Covid Screening Schedule [facility] Covid Screening Comment on above: Preop testing Start: 05-16-2021 End: 05-16-2021 Subsequent hospital visit by physician Yossi Golden MD Work Phone: [facility] Laboratory Start: 03-20-2021 End: 03-20-2021 Subsequent hospital visit by physician Maryam Encinas DO Work Phone: [facility] OR Comment on above: Post-op pain (Primar y Dx) Start: 11-27-2020 End: 11-28-2020 Emergency department patient visit Praveen Díaz Work Phone: [facility] ED Comment on above: Abscess of right thi gh (Primary Dx) Start: 09-24-2020 End: 09-26-2020 Evaluation and management of inpatient Guy Ramon Work Phone: [id number] Ortho/Med Surg Comment on above: Lumbar disc herniati on with radiculopathy (Primary Dx) Start: 09-24-2020 End: 09-24-2020 Emergency department patient visit Yossi Golden [facility] ED Comment on above: Acute midline low ba ck pain with bilateral sciatica (Primary Dx) Start: 09-17-2020 End: 09-17-2020 [facility] Comment on above: Lumbar disc herniati on (Primary Dx) Start: 08-27-2020 End: 08-27-2020 Emergency department patient visit Oliver Arenas Work Phone: [facility] ED Comment on above: Right lower quadrant abdominal pain (Primary Dx) Start: 08-13-2020 End: 08-13-2020 Emergency department patient visit Oliver Arenas Work Phone: [facility] ED Comment on above: Closed head [...] End: 06-15-2020 Evaluation and management of inpatient Krystina Patricia Llanes Work Phone: [email or web address] Comment on above: Acute pulmonary embo lism without acute cor pulmonale, unspecified pulmonary embolism type (HCC) (Primary Dx) Start: 05-22-2020 End: 05-24-2020 Evaluation and management of inpatient Ramila Elmore Work Phone: [facility] Labor and Delivery Comment on above: Status post repeat l ow transverse section (Primary Dx) Start: 05-19-2020 End: 05-19-2020 Subsequent hospital visit by physician Ramila Bustillos Work Phone: [email or web address] Labor and Delivery Start: 05-16-2020 End: 05-16-2020 Subsequent hospital visit by physician Yossi PALACIOS [place] [facility] PIT SHOVEL OPERATOR Start: 05-11-2020 End: 05-11-2020 Subsequent hospital visit by physician [facility] Interior Design Principal [facility] EKG Comment on above: History of pre-eclam psia; Palpitations; LVH (left ventricular hypertrophy); Tachycardia Start: 04-29-2020 End: 04-29-2020 Subsequent hospital visit by physician Maryam Encinas Work Phone: [facility] Labor and Delivery Start: 04-07-2020 End: 04-08-2020 Subsequent hospital visit by physician Colten Valenzuela Work Phone: [facility] Labor and Delivery Start: 04-02-2020 End: 04-03-2020 Subsequent hospital visit by physician Maryam Encinas Work Phone: [facility] Labor and Delivery Start: 03-29-2020 End: 03-29-2020 Subsequent hospital visit by physician Ramila Emlore Work Phone: [facility] Labor and Delivery Start: 02-26-2020 End: 02-26-2020 Subsequent hospital visit by physician Maryam Encinas Work Phone: [facility] Labor and Delivery Start: 02-02-2020 End: 02-04-2020 Subsequent hospital visit by physician [facility] Ultrasound Room [facility] Ultrasound Comment on above: RUQ pain Start: 02-01-2020 End: 02-01-2020 Subsequent hospital visit by physician Diann Farfan Work Phone: [facility] Labor and Delivery Start: 02-01-2020 End: 02-01-2020 Emergency department patient visit Krystina Llanes Work Phone: [facility] ED Comment on above: Dizziness (Primary D x); Right upper quadrant abdominal pain Start: 01-10-2020 End: 01-11-2020 Emergency department patient visit Efra Vazquez Work Phone: [facility] ED Comment on above: Trichomoniasis (Prim felisa Dx) Start: 12-30-2019 End: 12-30-2019 Subsequent hospital visit by physician [facility] Interior Design Principal [facility] EKG Comment on above: Essential hypertensi on; Palpitations; Lightheadedness; SOB (shortness of breath); Tachycardia; Episodic lightheadedness Start: 12-18-2019 End: 12-18-2019 Subsequent hospital visit by physician Yossi Golden [facility] Laboratory Start: 12-14-2019 End: 12-14-2019 Emergency department patient visit [facility] ED Comment on above: Fall, initial encoun ter (Primary Dx) Start: 09-24-2019 End: 09-24-2019 Emergency department patient visit Rod Conte MD Work Phone: [facility] ED Comment on above: Acute upper respirat ory infection (Primary Dx); Positive test Start: 07-28-2019 End: 07-29-2019 Emergency department patient visit Efra Erica George Work Phone: [facility] ED Comment on above: Cyst of right ovary (Primary Dx) Start: 05-25-2019 End: 05-25-2019 Emergency department patient visit [facility] ED Comment on above: Non-intractable vomi ting with nausea, unspecified vomiting type (Primary Dx) Start: 05-19-2019 End: 05-21-2019 Subsequent hospital visit by physician [facility] Vascular Imaging Room [facility] Vascular Lab Comment on above: Right leg pain Start: 05-19-2019 End: 05-19-2019 Emergency department patient visit Rod Conte Work Phone: [facility] ED Comment on above: Right leg pain (Prim felisa Dx) Procedures Date Procedure Procedure Detail Performing Clinician Start: 02-09-2025 Urinalysis microscopic only Maria A de leon PRECIPITATOR OPERATOR - CHIEF MINISTER Work Phone: Start: 02-09-2025 Urine test visual color cmprsn meths Maria A Polanco PRECIPITATOR OPERATOR - CHIEF MINISTER Work Phone: Start: 02-09-2025 Ecg routine ecg w/least 12 lds w/i&r Maria A Polanco PRECIPITATOR OPERATOR - CHIEF MINISTER Work Phone: Start: 02-09-2025 Ct abdomen & pelvis w/contrast material Maria A Polanco PRECIPITATOR OPERATOR - CHIEF MINISTER Work Phone: Start: 02-09-2025 Comprehensive metabolic panel Maria A costa PRECIPITATOR OPERATOR - CHIEF MINISTER Work Phone: Start: 02-05-2025 Basic metabolic panel calcium total eNlsy Colmenares MD Work Phone: Start: 02-05-2025 Hepatic function panel Rod Colmenares MD Work Phone: Start: 01-01-2025 End: 01-01-2025 Iaadiadoo influenza Imelda Syed Amina GREWAL Work Phone: Start: 01-01-2025 Urnls dip stick/tablet rgnt auto w/o microscopy Imelda Syed Amina GREWAL Work Phone: Start: 01-01-2025 Comprehensive metabolic panel Imelda Syed Brigid min MD Work Phone: Start: 11-06-2024 End: 11-06-2024 GLUCOSE, WHOLE BLOOD Wilman Figueroa MD Work Phone: Start: 11-06-2024 CT ABDOMEN PELVIS W IV CONTRAST Generic External Data Provider Start: 11-06-2024 Assay of lipase Colten L Daina PRECIPITATOR OPERATOR - CHIEF MINISTER Work Phone: Start: 11-06-2024 MHPT CBC WITH DIFF Generic External Data Provider Start: 11-05-2024 GLUCOSE, WHOLE BLOOD Wilman Figueroa MD Work Phone: Start: 11-05-2024 GLUCOSE, WHOLE BLOOD Wilman Figueroa MD Work Phone: Start: 11-05-2024 GLUCOSE, WHOLE BLOOD Wilman Figueroa MD Work Phone: Start: 11-05-2024 GLUCOSE, WHOLE BLOOD Wilman Figueroa MD Work Phone: Start: 11-05-2024 Assay of lipase Colten L Daina PRECIPITATOR OPERATOR - CHIEF MINISTER Work Phone: Start: 11-05-2024 MHPT CBC WITH DIFF Generic External Data Provider Start: 11-04-2024 Ct abdomen & pelvis w/contrast material Ric Ambrose MD Work Phone: Start: 11-04-2024 Urinalysis microscopic only Ric fernandes MD Work Phone: Start: 11-04-2024 Urnls dip stick/tablet rgnt auto w/o microscopy Ric Ambrose MD Work Phone: Start: 11-04-2024 Basic metabolic panel calcium total Ric Ambrose MD Work Phone: Start: 11-04-2024 Hepatic function panel Ric Ambrose MD Work Phone: Start: 10-21-2024 GLUCOSE, WHOLE BLOOD Dedra Pineda MD Work Phone: Start: 10-21-2024 GLUCOSE, WHOLE BLOOD Dedra Pineda MD Work Phone: Start: 10-21-2024 Assay of lipase Aissatou Salcedo PRECIPITATOR OPERATOR - CHIEF MINISTER Work Phone: Start: 10-20-2024 End: 10-20-2024 GLUCOSE, WHOLE BLOOD Dedra Pineda MD Work Phone: Start: 10-20-2024 Assay of lactate Kaylie Sommer DO Work Phone: Start: 10-20-2024 Urnls dip stick/tablet reagent auto microscopy Kaylie Sommer DO Work Phone: Start: 10-20-2024 End: 10-20-2024 Comprehensive metabolic panel Kaylie Sommer DO Work Phone: Start: 09-30-2024 ALL THYROID STIM HORMONE Generic Externa l Data Provider Start: 09-30-2024 Hemoglobin glycosylated a1c Merrill maciel PRECIPITATOR OPERATOR - CHIEF MINISTER Work Phone: Start: 09-30-2024 Lipid panel Merrill Sheffield PRECIPITATOR OPERATOR - CHIEF MINISTER Work Phone: Start: 09-17-2024 Basic metabolic panel calcium total Nelsy Colmenares MD Work Phone: Start: 09-17-2024 Hepatic function panel Rod Colmenares MD Work Phone: Start: 09-17-2024 Urinalysis microscopic only Rod Ritter Work Phone: Start: 09-17-2024 Urnls dip stick/tablet rgnt auto w/o microscopy Rod Colmenares MD Work Phone: Start: 09-02-2024 Esophagogastroduodenoscopy Aly nguyen Start: 08-06-2024 Urnls dip stick/tablet reagent auto microscopy Chemo Solo MD Work Phone: Start: 08-06-2024 Comprehensive metabolic panel Chemo Solo MD Work Phone: Start: 07-08-2024 GLUCOSE, WHOLE BLOOD Dedra Pineda MD Work Phone: Start: 07-08-2024 GLUCOSE, WHOLE BLOOD Dedra Pineda MD Work Phone: Start: 07-08-2024 BASIC METABOLIC PANEL W/ REFLEX TO MG FOR LOW K Aissatou Salcedo PRECIPITATOR OPERATOR - CHIEF MINISTER Work Phone: Start: 07-08-2024 HMHP BASIC METABOLIC PANEL REFLEX MG Generic External Data Provider Start: 07-07-2024 GLUCOSE, WHOLE BLOOD Dedra Pineda MD Work Phone: Start: 07-07-2024 GLUCOSE, WHOLE BLOOD Dedra Pineda MD Work Phone: Start: 07-07-2024 MHPT GLUCOSE, WHOLE BLOOD Generic Water Quality Analyst al Data Provider Start: 07-07-2024 Urinalysis microscopic only Kaylie Sommer DO Work Phone: Start: 07-07-2024 Urnls dip stick/tablet rgnt auto w/o microscopy Kaylie Sommer DO Work Phone: Start: 07-07-2024 Comprehensive metabolic panel Kaylie Sommer DO Work Phone: Start: 05-26-2024 Comprehensive metabolic panel Nilda bronson DO Work Phone: Start: 05-26-2024 Urnls dip stick/tablet rgnt auto w/o microscopy Nilda iRch DO Work Phone: Start: 05-14-2024 Gastric emptying imaging study Yossi Golden MD Work Phone: Start: 05-04-2024 Nerve conduction studies 9-10 studies Monika Houston Start: 04-21-2024 Basic metabolic panel calcium total Yossi Brandi Golden MD Work Phone: Start: 01-30-2024 Ct thorax w/contrast material Charly sumner DO Work Phone: Start: 01-30-2024 Basic metabolic panel calcium total Charly Seay DO Work Phone: Start: 01-30-2024 Ecg routine ecg w/least 12 lds w/i&r Charly Seay DO Work Phone: Start: 01-04-2024 Basic metabolic panel calcium total Gloria Bosch MD Work Phone: Start: 01-04-2024 COVID-19MAGALY MD Work Phone: Start: 01-04-2024 Iaadiadoo jasbir Bosch MD Work Phone: Start: 11-23-2023 Ct abdomen & pelvis w/contrast material Samy Walker MD Start: 11-23-2023 Urnls dip stick/tablet reagent auto microscopy Samy Walker MD Start: 11-23-2023 Comprehensive metabolic panel Samy Ritter Start: 10-14-2023 COVID-MAGALY Sheomaker MD Start: 10-14-2023 Iaaniurka Walker MD Start: 03-23-2023 Radiologic exam chest single view Trudy Ragsdale MD Work Phone: Start: 03-23-2023 Ct head/brain w/o contrast material Pearl Ragsdale MD Work Phone: Start: 03-23-2023 Comprehensive metabolic panel Nazia Santana dd, MD Work Phone: Start: 02-18-2023 Ct abdomen & pelvis w/contrast material Samy Walker MD Start: 02-18-2023 GLUCOSE, WHOLE BLOOD Samy Walker MD Start: 02-18-2023 Radiologic exam chest single view Samy painter MD Start: 02-18-2023 End: 02-18-2023 Comprehensive metabolic panel Samy Ritter Start: 02-18-2023 Blood gases any combination ph pco2 po2 co2 hco3 Samy Walker MD Start: 02-18-2023 SPECIMEN REJECTION Samy Walker MD Start: 02-18-2023 Urnls dip stick/tablet reagent auto microscopy Samy Walker MD Start: 02-18-2023 GLUCOSE, WHOLE BLOOD Yossi Golden MD Work Phone: Start: 12-24-2022 Basic metabolic panel calcium total Jave randi J Phelps DO Work Phone: Start: 12-24-2022 Urinalysis microscopic only Anahi J Iq bal DO Work Phone: Start: 12-24-2022 Urnls dip stick/tablet rgnt auto w/o microscopy Anahi J Phelps DO Work Phone: Start: 12-24-2022 Ecg routine ecg w/least 12 lds w/i&r Anahi J Phelps DO Work Phone: Start: 12-24-2022 Radiologic exam chest single view Jaevei a Cam Phelps DO Work Phone: Start: 11-21-2022 Hemoglobin glycosylated a1c Yossi Golden MD Work Phone: Start: 11-01-2022 Us transvaginal Ricardo Garcia PA-C Work Phone: Start: 11-01-2022 Comprehensive metabolic panel Ricardo sosa PA-C Work Phone: Start: 11-01-2022 Urine test visual color cmprsn meths Ty Dillard MD Work Phone: Start: 11-01-2022 Urnls dip stick/tablet reagent auto microscopy Ty Dillard MD Work Phone: Start: 10-05-2022 Comprehensive metabolic panel Ty valadez MD Work Phone: Start: 10-05-2022 Urnls dip stick/tablet rgnt auto w/o microscopy Ty Dillard MD Work Phone: Start: 09-27-2022 Comprehensive metabolic panel Oliver alejandro MD Work Phone: Start: 09-27-2022 Urine test visual color cmprsn meths Oliver Arenas MD Work Phone: Start: 09-27-2022 Urnls dip stick/tablet reagent auto microscopy Oliver Arenas MD Work Phone: Start: 07-08-2022 Ct thorax w/contrast material Ricardo Solis-C Work Phone: Start: 07-08-2022 Radiologic exam chest 2 views Riacrdo PerezC Work Phone: Start: 07-08-2022 Comprehensive metabolic panel Ricardo PerezC Work Phone: Start: 03-11-2022 Ct abdomen & pelvis w/contrast material Samy Walker MD Start: 03-11-2022 Blood count complete auto&auto difrntl wbc Samy Walker MD Start: 03-11-2022 COVID-, RAPID Samy Walker MD Start: 03-11-2022 Urine test visual color cmprsn liujessica Walker MD Start: 03-11-2022 Urnls dip stick/tablet reagent auto microscopy Samy Walker MD Start: 01-04-2022 End: 01-04-2022 Radex forearm 2 views Renard Watkins MD Work Phone: Start: 12-05-2021 Gluc bld gluc mntr dev cleared fda spec home use Samy Walker MD Start: 12-05-2021 End: 12-05-2021 GLUCOSE, WHOLE BLOOD Yossi Golden MD Work Phone: Start: 09-06-2021 COVID-19, RAPID Caleb COHNC Work Phone: Start: 06-02-2021 Radiologic exam chest 2 views Silvio COHNC Work Phone: Start: 05-26-2021 Radiologic exam upr gi trc double contrast study Yossi Golden MD Work Phone: Start: 05-16-2021 Basic metabolic panel calcium total Yossi Golden MD Work Phone: Start: 05-16-2021 Hepatic function panel Yossi Golden MD Work Phone: Start: 02-14-2021 Microscopic observation [Identifier] in Cervix by Cyto stain Yossi Golden MD Work Phone: Start: 09-25-2020 Mri spinal [...] 08-27-2020 Ct abdomen & pelvis w/contrast material Oliver Crismaru Work Phone: Start: 08-27-2020 Urine test visual color cmprsn meths Oliver Crismaru Work Phone: Start: 08-27-2020 Urnls dip stick/tablet reagent auto microscopy Oliver Crismaru Work Phone: Start: 08-27-2020 Assay of lactate Oliver Crismaru Work Phone: Start: 08-27-2020 Assay of lipase Oliver Crismaru Work Phone: Start: 08-27-2020 Blood count complete auto&auto difrntl wbc Oliver Crismaru Work Phone: Start: 08-27-2020 Comprehensive metabolic panel Oliver Cr ismaru Work Phone: Start: 08-13-2020 Ct head/brain w/o contrast material Cipr kylee Arenas Work Phone: Start: 08-05-2020 Assay of homocysteine Tyrone Michelle Eri Work Phone: Start: 07-25-2020 Blood count complete auto&auto difrntl wbc Maryam Encinas Work Phone: Start: 06-15-2020 Blood count complete automated Aissatou Aguayoers Work Phone: Start: 06-14-2020 Dup-scan xtr veins complete bilateral study Dedra Pnieda Work Phone: Start: 06-14-2020 Blood count complete automated Aissatou Maldonado Beba Work Phone: Start: 06-13-2020 Intermittent pulse oximetry Dedra Pineda Work Phone: Start: 06-13-2020 Ct thorax w/contrast material Krystina E Eit ches Work Phone: Start: 06-13-2020 Assay of troponin quantitative Krystina E Ei tches Work Phone: Start: 06-13-2020 Basic metabolic panel calcium total Krystina E Eitches Work Phone: Start: 06-13-2020 Blood count complete auto&auto difrntl wbc Krystina E Eitches Work Phone: Start: 06-13-2020 Blood count reticulocyte automated Krystina E Eitches Work Phone: Start: 06-13-2020 Fibrin dgradj products d-dimer quantitative Krystina E Eitches Work Phone: Start: 06-13-2020 Ecg routine ecg w/least 12 lds i&r only Krystina E Eitches Work Phone: Start: 06-13-2020 EKG REPORT Hpf Scanning Start: 06-13-2020 Radiologic exam chest single view Krystina E Eitches Work Phone: Start: 06-13-2020 Level iv surg pathology gross&microscopic exam Dedra Pineda Work Phone: Start: 05-24-2020 Blood count complete auto&auto difrntl wbc Ramila Elmore Work Phone: Start: 05-24-2020 Glucose tolerance test gtt 3 specimens Ramila Elmore Work Phone: Start: 05-23-2020 GLUCOSE, WHOLE BLOOD Ramila Elmore Work Phone: Start: 05-23-2020 GLUCOSE, WHOLE BLOOD Ramila Elmore Work Phone: Start: 05-23-2020 GLUCOSE, WHOLE BLOOD Ramila Elmore Work Phone: Start: 05-23-2020 Blood count hemoglobin Michael Helms Work Phone: Start: 05-22-2020 Antibody screen Ramila Elmore Start: 05-22-2020 End: 05-22-2020 delivery only Michael Helms Work Phone: Start: 05-22-2020 Blood count complete automated Michael Helms Work Phone: Start: 05-22-2020 Blood typing serologic abo Michael pang Work Phone: Start: 05-22-2020 Level iv surg pathology gross&microscopic exam Michael Helms Work Phone: Start: 05-22-2020 Drug screen class list a Michael Helms Work Phone: Start: 05-19-2020 nonstress test Ramila Bustillos Work Phone: Start: 04-29-2020 Urnls dip stick/tablet rgnt auto w/o microscopy Maryam Encinas Work Phone: Start: 04-07-2020 Urnls dip stick/tablet rgnt auto w/o microscopy Colten Manzanor Work Phone: Start: 04-02-2020 Assay of thyroid stimulating hormone tsh Maryam Encinas Work Phone: Start: 04-02-2020 Blood count complete auto&auto difrntl wbc Maryam Encinas Work Phone: Start: 04-02-2020 Urinalysis microscopic only Maryam Sheyla Dot y Encinas Work Phone: Start: 04-02-2020 Urnls dip stick/tablet rgnt auto w/o microscopy Maryam F Ronyian ClintonEncinas Work Phone: Start: 03-29-2020 GLUCOSE, WHOLE BLOOD Ramila Elmore Work Phone: Start: 03-29-2020 Urinalysis microscopic only Maryam Sheyla Dot y Encinas Work Phone: Start: 03-29-2020 Urnls dip stick/tablet rgnt auto w/o microscopy Maryam Clintontrong Work Phone: Start: 02-26-2020 Blood count complete automated Diann Gomez [employer] Work Phone: Start: 02-26-2020 Comprehensive metabolic panel Diann E [employer] Work Phone: Start: 02-26-2020 Urnls dip stick/tablet rgnt auto w/o microscopy Ramila Elmore Work Phone: Start: 02-02-2020 Us abdominal real time w/image limited Krystinanuno Mayorgapoly Work Phone: Start: 02-01-2020 Urnls dip stick/tablet rgnt auto w/o microscopy Krystinanuno Mayorgapoly Work Phone: Start: 02-01-2020 Assay of lipase Krystina Patricia Mayorgapoly Work Phone: Start: 02-01-2020 Assay of magnesium Krystina Patricia Mayorgapoly Work Phone: Start: 02-01-2020 BASIC METABOLIC PANEL W/ REFLEX TO MG FOR LOW K Krystinanuno Mayorgapoly Work Phone: Start: 02-01-2020 Blood count complete auto&auto difrntl wbc Krystina Patricia Mayorgapoly Work Phone: Start: 02-01-2020 Hepatic function panel Krystina Patricia Mayorgapoly Work Phone: Start: 01-10-2020 Assay of lipase Efra A George Work Phone: Start: 01-10-2020 Blood count complete auto&auto difrntl wbc Efranelly Ramiressain Work Phone: Start: 01-10-2020 Urinalysis microscopic only Efranelly Hill in Work Phone: Start: 01-10-2020 Urnls dip stick/tablet rgnt auto w/o microscopy Efranelly Hillin Work Phone: Start: 12-30-2019 Echo tthrc r-t 2d w/wom-mode compl spec&colr d Silvio Gr Work Phone: Start: 12-18-2019 Creatinine clearance Je Ambrose Work Phone: Start: 12-18-2019 Assay of urea nitrogen quantitative Srir jan Ambrose Work Phone: Start: 12-18-2019 Creatinine blood Je Ambrose Work Phone: Start: 12-18-2019 Creatinine other source Je C Halie Work Phone: Start: 12-18-2019 Protein total xcpt refractometry urine Je Ambrose Work Phone: Start: 11-23-2019 ABO, EXTERNAL RESULT Historical Provider Start: 11-23-2019 C. TRACHOMATIS, EXTERNAL RESULT Historic al Provider Start: 11-23-2019 HEPATITIS B, EXTERNAL RESULT Historical Provider Start: 11-23-2019 HEPATITIS C ANTIBODY, EXTERNAL RESULT Historical Provider Start: 11-23-2019 HIV, EXTERNAL RESULT Historical Provider Start: 11-23-2019 N. GONORRHOEAE, EXTERNAL RESULT Historic al Provider Start: 11-23-2019 RH FACTOR, EXTERNAL RESULT Historical Pr ovider Start: 11-23-2019 RPR, EXTERNAL RESULT Historical Provider Start: 11-23-2019 RUBELLA TITER, EXTERNAL RESULT Historica l Provider Start: 09-24-2019 Assay of lipase Rod Conte MD Work Phone: Start: 09-24-2019 Radiologic exam chest 2 views Rod gomez MD Work Phone: Start: 09-24-2019 Iaadiadoo influenza Rod Conte MD Work Phone: Start: 07-29-2019 Ct abdomen & pelvis w/contrast material Feranelly Vazquez Work Phone: Start: 07-28-2019 Assay of lipase Efra Vazquez Work Phone: Start: 07-28-2019 Blood count complete auto&auto difrntl wbc Efra Vazquez Work Phone: Start: 07-28-2019 Gonadotropin chorionic qualitative Efranelly Vazquez Work Phone: Start: 07-28-2019 Lactate [Moles/Vol] Efranelly Vazquez Work Phone: Start: 07-28-2019 Prothrombin time Efranelly Vazquez Work Phone: Start: 07-28-2019 Thromboplastin time partial plasma/whole blood Efra Vazquez Work Phone: Start: 07-28-2019 Urinalysis microscopic only Efra Hill in Work Phone: Start: 07-28-2019 Urnls dip stick/tablet rgnt auto w/o microscopy Efra Vazquez Work Phone: Start: 05-25-2019 Urinalysis microscopic only Juan garcia Work Phone: Start: 05-25-2019 Urine test visual color cmprsn meths Juan Schmidt Work Phone: Start: 05-25-2019 Urnls dip stick/tablet rgnt auto w/o microscopy Juan Schmidt Work Phone: Start: 05-25-2019 Assay of lipase Juan Schmidt Work Phone: Start: 05-25-2019 Blood count complete auto&auto difrntl wbc Juan Schmidt Work Phone: Start: 05-25-2019 Ecg routine ecg w/least 12 lds w/i&r Krystina Patricia Llanes Work Phone: Start: 05-19-2019 Dup-scan xtr veins unilateral/limited study Rod Conte Work Phone: Start: 09-23-2017 section Yajaira NILL Start: 06-27-2017 H/O: section Status post repeat low transverse section Rod Conte MD Work Phone: Start: 09-23-2015 section Yajaira NILL Bilateral oophorectomy William zack NILL section Yajaira NIL L Cholecystectomy Yajaira NILL Extraction of wisdom tooth M bennie NILL End: 03-26-2017 H/O: section S/P primary low transverse Rod Conte MD Work Phone: Lacrimal canaliculus structure (body structure) Yajaira NILL Laparoscopic hysterectomy Mi chael NILL Laparoscopy Yajaira NILL Tonsillectomy Yajaira NILL Plan of Treatment Date Care Activity Detail Author Start: 05-24-2030 DTaP/Tdap/Td vaccine (8 - Td or Tdap) DTaP/Tdap/Td vaccine (8 - Td or Tdap) [facility] Start: 05-24-2030 DTaP/Tdap/Td vaccine (8 - Td) DTaP/Tdap/Td vaccine (8 - Td) [place] Start: 05-24-2030 DTaP/Tdap/Td vaccine (9 - Td or Tdap) DTaP/Tdap/Td vaccine (9 - Td or Tdap) [facility] Start: 05-24-2030 Urine microalbumin profile DTaP,Tdap,Td Vaccine (4 - Td or Tdap) [facility] Start: 10-21-2027 DTaP/Tdap/Td vaccine (7 - Td) DTaP/Tdap/Td vaccine (7 - Td) [place] Start: 05-13-2026 Glaucoma screening Diabetes: Retinopathy Screening [facility] Start: 02-09-2026 GFR test (Diabetes, CKD 3-4, OR last GFR 15-59) GFR test (Diabetes, CKD 3-4, OR last GFR 15-59) [facility] Start: 02-05-2026 GFR test (Diabetes, CKD 3-4, OR last GFR 15-59) GFR test (Diabetes, CKD 3-4, OR last GFR 15-59) [facility] Start: 01-01-2026 GFR test (Diabetes, CKD 3-4, OR last GFR 15-59) GFR test (Diabetes, CKD 3-4, OR last GFR 15-59) [facility] Start: 11-06-2025 GFR test (Diabetes, CKD 3-4, OR last GFR 15-59) GFR test (Diabetes, CKD 3-4, OR last GFR 15-59) [facility] Start: 10-21-2025 GFR test (Diabetes, CKD 3-4, OR last GFR 15-59) GFR test (Diabetes, CKD 3-4, OR last GFR 15-59) [facility] Start: 09-30-2025 Hemoglobin A1c measurement A1C test (Diabetic or Prediabetic) [facility] Start: 09-30-2025 Hepatitis B surface antibody level LDL Cholesterol [facility] Start: 09-30-2025 Lipid [facility]ids [facility] Start: 09-17-2025 GFR test (Diabetes, CKD 3-4, OR last GFR 15-59) GFR test (Diabetes, CKD 3-4, OR last GFR 15-59) [facility] Start: 08-06-2025 GFR test (Diabetes, CKD 3-4, OR last GFR 15-59) GFR test (Diabetes, CKD 3-4, OR last GFR 15-59) [facility] Start: 08-06-2025 Urine screening for protein Diabetes: Urine Protein Screening [facility] Start: 07-08-2025 GFR test (Diabetes, CKD 3-4, OR last GFR 15-59) GFR test (Diabetes, CKD 3-4, OR last GFR 15-59) [facility] Start: 07-08-2025 Urine screening for protein Diabetes: Urine Protein Screening [facility] Start: 07-07-2025 Urine screening for protein Diabetes: Urine Protein Screening [facility] Start: 06-16-2025 Urine screening for protein Diabetes: Urine Protein Screening [facility] Start: 06-08-2025 Urine screening for protein Diabetes: Urine Protein Screening [facility] Start: 06-04-2025 Hemoglobin A1c measurement [facility] Start: 05-26-2025 GFR test (Diabetes, CKD 3-4, OR last GFR 15-59) GFR test (Diabetes, CKD 3-4, OR last GFR 15-59) [facility] Start: 05-24-2025 Influenza vaccination [facility] Start: 05-20-2025 Urine screening for protein Diabetes: Urine Protein Screening [facility] Start: 04-23-2025 Influenza vaccination Flu vaccine (Season Ended) [facility] Start: 04-21-2025 End: 04-21-2025 Follow-up encounter Pain Management Comment on above: follow up Start: 04-21-2025 GFR test (Diabetes, CKD 3-4, OR last GFR 15-59) GFR test (Diabetes, CKD 3-4, OR last GFR 15-59) [facility] Start: 04-21-2025 Urine screening for protein [facility] Start: 04-07-2025 End: 04-07-2025 Patient encounter procedure 04/07/2025 9:00 AM EDT Office Visit [facility] [address] [place] [address] Yossi Golden MD [address] [place] [address] [facility] Start: 03-30-2025 Hemoglobin A1c measurement Diabetes: Hemoglobin A1C [facility] Start: 02-12-2025 End: 02-12-2025 Admission to same day surgery center 02/12/2025 4:00 PM EDT [facility] General Surgery [facility] [address] [address] [place] [address] Ronaldo [place]án[place] [address] 4 wk post op General Surgery Comment on above: 4 wk post op Start: 01-29-2025 GFR test (Diabetes, CKD 3-4, OR last GFR 15-59) GFR test (Diabetes, CKD 3-4, OR last GFR 15-59) [facility] Start: 01-13-2025 End: 01-13-2025 Patient encounter procedure 01/13/2025 7:30 AM EDT Appointment [facility] [place] [address] Ronaldo Sánchez, [place] [address] Gastroparesis [facility] Comment on above: Gastroparesis Start: 01-03-2025 GFR test (Diabetes, CKD 3-4, OR last GFR 15-59) GFR test (Diabetes, CKD 3-4, OR last GFR 15-59) [facility] Start: 12-22-2024 Hemoglobin A1c measurement Diabetes: Hemoglobin A1C [facility] Start: 12-15-2024 End: 12-15-2024 Admission to same day surgery center 12/15/2024 10:30 AM EDT [facility] General Surgery [address] [address] Ronaldo Sánchez, [place] [address] new gp consult General Surgery Comment on above: new gp consult Start: 12-02-2024 End: 03-03-2025 ACETYLCHOLINE REC BINDING AB [facility] Comment on above: Expected: 12/02/2024, Expires: Start: 12-02-2024 End: 03-03-2025 AMINO ACIDS, PLASMA W/ CONSULTATION [facility] Comment on above: Expected: 12/02/2024, Expires: Start: 12-02-2024 End: 03-03-2025 CARNITINE FREE AND TOTAL, PLASMA [facility] Comment on above: Expected: 12/02/2024, Expires: Start: 12-02-2024 End: 03-03-2025 CYTOKINE PANEL 13, [facility] Comment on above: Expected: 12/02/2024, Expires: Start: 12-02-2024 End: 03-03-2025 Erythrocyte sedimentation rate [facility] Comment on above: Expected: 12/02/2024, Expires: Start: 12-02-2024 End: 03-03-2025 ESTROGEN FRACTION BL [facility] Comment on above: Expected: 12/02/2024, Expires: Start: 12-02-2024 End: 03-03-2025 Glutamate decarboxylase 65 Ab [Units/volume] in Serum [facility] Comment on above: Expected: 12/02/2024, Expires: Start: 12-02-2024 End: 03-03-2025 Hemoglobin A1c in Blood [facility] Comment on above: Expected: 12/02/2024, Expires: Start: 12-02-2024 End: 03-03-2025 IgA [Mass/volume] in Serum or Plasma [facility] Comment on above: Expected: 12/02/2024, Expires: Start: 12-02-2024 End: 03-03-2025 IgG [Mass/volume] in Serum or Plasma [facility] Comment on above: Expected: 12/02/2024, Expires: Start: 12-02-2024 End: 03-03-2025 IgM [Mass/volume] in Serum or Plasma [facility] Comment on above: Expected: 12/02/2024, Expires: Start: 12-02-2024 End: 03-03-2025 Lactate dehydrogenase [Enzymatic activity/volume] in Serum or Plasma [facility] [email or web address] Work Phone: Comment on above: Expected: 12/02/2024, Expires: Start: 12-02-2024 End: 03-03-2025 ORGANIC ACIDS UR, QUANT W/CONSULTATION [facility] Comment on above: Expected: 12/02/2024, Expires: Start: 12-02-2024 End: 03-03-2025 PYRUVATE+LACTATE BL [facility] Comment on above: Expected: 12/02/2024, Expires: Start: 12-02-2024 End: 03-03-2025 Thyroxine (T4) free [Mass/volume] in Serum or Plasma [facility] Comment on above: Expected: 12/02/2024, Expires: Start: 12-02-2024 End: 03-03-2025 VOLTAGE GATED CA IGG [facility] Comment on above: Expected: 12/02/2024, Expires: Start: 12-02-2024 End: 03-03-2025 Voltage-gated potassium channel Ab [Moles/volume] in Serum [facility] Comment on above: Expected: 12/02/2024, Expires: Start: 10-29-2024 End: 10-29-2024 Patient encounter procedure 10/29/2024 11:30 AM EST Office Visit [facility] [address] [place] [address] Yossi Golden MD [address] [place] [address] [facility] Start: 10-09-2024 End: 10-09-2024 Patient encounter procedure 10/09/2024 9:15 AM EST Office Visit [facility] [address] [place] [address] Yossi Golden MD [address] [place] [phone] [facility] Start: 10-08-2024 End: 10-08-2024 Patient encounter procedure 10/08/2024 9:45 AM EST Office Visit [facility] [address] [place] [address] Yossi Golden MD [address] [place] [phone] [facility] Start: 09-23-2024 Hemoglobin A1c measurement Diabetes: Hemoglobin A1C JAMAAL [facility] Start: 08-11-2024 End: 08-11-2024 Patient encounter procedure 08/11/2024 11:45 AM EST Office Visit [facility] [address] [place] [address] Yossi Golden MD [address] [place] [id number] Arrived [facility] Comment on above: Arrived Start: 2024 Screening for malignant neoplasm of cervix [facility] Start: 07-22-2024 Hemoglobin A1c measurement [facility] Start: 07-09-2024 End: 07-09-2024 Patient encounter procedure [facility] Comment on above: Arrived Start: 06-08-2024 End: 06-08-2024 Patient encounter procedure 06/08/2024 1:30 PM EDT Office Visit [facility] [address] [place] [address] Yossi Golden MD [address] [place] [id number] Arrived [facility] Comment on above: Arrived Start: 05-24-2024 Covid-19 Vaccine ( season) Covid-19 Vaccine ( season) [facility] Start: 05-24-2024 COVID-19 Vaccine ( season) [facility] [facility] Start: 05-24-2024 COVID-19 Vaccine ( season) COVID-19 Vaccine ( season) [facility] Start: 05-24-2024 Influenza vaccination Influenza Vaccine (#1) [facility] Start: 05-11-2024 ambulatory Ambulatory Facility:[facility] Start: 04-23-2024 Influenza vaccination [facility] Start: 02-15-2024 Screening for malignant neoplasm of cervix [facility] Start: 11-22-2023 Hemoglobin A1c measurement A1C test (Diabetic or Prediabetic) [facility] Start: 09-25-2023 End: 09-25-2023 Patient encounter procedure 09/25/2023 9:15 AM EST Appointment [facility] [address] [place] [id number] Lee Morales [facility] Start: 09-09-2023 End: 09-09-2023 Patient encounter procedure 09/09/2023 9:00 AM EST Appointment [facility] [address] [place] [id number] Bridgett Zambrano PTA [facility] Start: 07-02-2023 End: 07-02-2023 Patient encounter procedure 07/02/2023 Office Visit Obstetrics and Gynecology Maryam Bess DO [address] [place] [address] [facility] Start: 05-24-2023 COVID-19 Vaccine ( season) COVID-19 Vaccine ( season) [facility] Start: 04-23-2023 Influenza vaccination [facility] Start: 12-25-2022 End: 12-25-2022 Patient encounter procedure 12/25/2022 Office Visit Obstetrics and Gynecology Maryam Bess DO [address] [place] [address] [facility] Start: 11-21-2022 End: 11-21-2022 Patient encounter procedure 11/21/2022 Office Visit Obstetrics and Gynecology Tracey Rivera PA-C [address] [place] [address] [facility] OBSTETRICS & GYNECOLOG[facility] Start: 11-12-2022 End: 11-12-2022 Admission to same day surgery center 11/12/2022 Surgery IP Unit Rony Maryam Encinas, DO [address] [place] [id number] HYSTERECTOMY VAGINAL LAPAROSCOPIC ROBOTIC, POSSIBLE BSO, POSSIBLE LAPAROSCOPIC COLPOPEXY [facility] Comment on above: HYSTERECTOMY VAGINAL LAPAROSCOPIC ROBOTI C, POSSIBLE BSO, POSSIBLE LAPAROSCOPIC COLPOPEXY Start: 11-12-2022 End: 11-12-2022 Anesthesia consultation 11/12/2022 Anesthesia Event IP Unit Magali Elmore, PRECIPITATOR OPERATOR - COMMERCIAL [employer] [address] [address] [place] [id number] [facility] Start: 11-12-2022 End: 11-12-2022 Laps total hysterect 250 gm/< w/rmvl tube/ovary HYSTERECTOMY VAGINAL LAPAROSCOPIC ROBOTIC ASSISTED Dysmenorrhea 11/12/2022 11:10 AM [facility] Start: 11-12-2022 Subsequent hospital visit by physician 11/12/2022 Hospital Encounter IP Unit Rony Maryam Encinas, [address] [place] [id number] [facility] Start: 11-12-2022 End: 11-12-2022 Laps total hysterect 250 gm/< w/rmvl tube/ovary HYSTERECTOMY VAGINAL LAPAROSCOPIC ROBOTIC ASSISTED Dysmenorrhea 11/12/2022 9:45 AM [facility] Start: 10-30-2022 End: 10-30-2022 Patient encounter procedure 10/30/2022 Office Visit Obstetrics and Gynecology Rony Maryam Encinas, DO [address] [place] [phone] [facility] OBSTETRICS & [facility]YNECOLOG[facility] Start: 10-01-2022 End: 10-01-2022 Patient encounter procedure 10/01/2022 Office Visit Obstetrics and Gynecology Rony Maryam Encinas DO [address] [place] [address] [facility] OBSTETRICS [facility] Start: 07-31-2022 End: 07-31-2022 Patient encounter procedure 07/31/2022 Office Visit Obstetrics and Gynecology Rony Maryam Encinas DO [address] [place] [address] [facility] Start: 07-31-2022 End: 07-31-2022 Professional / ancillary services management 07/31/2022 Ancillary Procedure Obstetrics and Gynecology [facility] Start: 05-24-2022 Influenza vaccination Flu vaccine (Season Ended) [facility] Start: 05-16-2022 COVID-19 Vaccine (4 - Booster for Pfizer series) COVID-19 Vaccine (4 - Booster for Pfizer series) [facility] Start: 05-16-2022 Hemoglobin A1c measurement A1C test (Diabetic or Prediabetic) [facility] Start: 04-23-2022 Influenza vaccination Flu vaccine (#1) [facility] Start: 02-14-2022 Depression Screen Depression Screen [facility] Start: 02-12-2022 End: 02-12-2022 Patient encounter procedure [facility] OBSTETRICS GYNECOLOGY Start: 05-26-2021 End: 05-26-2021 Patient encounter procedure 05/26/2021 Appointment Radiology Radiologist, [facility] Start: 05-24-2021 HbA1c (Bld) [Mass fraction] A1C test (Diabetic or Prediabetic) [facility] Start: 05-24-2021 Hemoglobin A1c measurement A1C test (Diabetic or Prediabetic) [facility] Work Phone: Start: 05-24-2021 Influenza vaccination Flu vaccine (#1) [facility] Start: 05-22-2021 End: 05-22-2021 Patient encounter procedure 05/22/2021 Appointment Lab [facility] Covid Screening Start: 12-22-2020 A1C test (Diabetic or Prediabetic) A[facility]C test (Diabetic or Prediabetic) [facility] Start: 12-22-2020 HbA1c (Bld) [Mass fraction] A1C test (Diabetic or Prediabetic) [facility] Start: 12-06-2020 End: 12-06-2020 Office Visit 12/06/2020 Office Visit Obstetrics and Gynecology Maryam Bess DO [address] [place] [address] [facility] OBSTETRICS & GYNECOLOGY Start: 11-23-2020 End: 11-23-2020 Office Visit 11/23/2020 Office Visit Cardiology Silvio Gr MD [address] [place] [phone] [facility] CARDIOLOGY [facility] Start: 08-25-2020 End: 08-25-2020 Office Visit 08/25/2020 Office Visit Oncology Tyrone Hwang MD [address] [place] [address] [facility] ONCOLOGY SPECIALISTS [facility] Start: 07-04-2020 End: 07-04-2020 Visit 07/04/2020 Visit Obstetrics and Gynecology Maryam Bess DO [address] [place] [address] [phone] [facility] OBSTETRICS & GYNECOLOGY Start: 06-29-2020 End: 06-29-2020 Office Visit 06/29/2020 Office Visit Cardiology Silvio Gr MD [address] [place] [phone] [facility] CARDIOLOGY [facility] Start: 06-01-2020 End: 06-01-2020 Hospital Encounter [facility] Comment on above: SECTION Start: 05-31-2020 End: 05-31-2020 Ancillary Procedure [facility] Obstetrics & Gynecology Start: 05-29-2020 Cervical cancer screen [facility] Start: 05-29-2020 Screening for malignant neoplasm of cervix Cervical cancer screen [place] Start: 05-26-2020 End: 05-26-2020 Procedure visit [facility] Obstetrics & Gynecology Start: 05-24-2020 Influenza vaccination [place] Start: 05-23-2020 End: 05-23-2020 Ancillary Procedure [facility] Obstetrics & Gynecology Start: 05-19-2020 End: 05-19-2020 Routine 05/19/2020 Routine Obstetrics and Gynecology [facility] OBSTETRICS & GYNECOLOGY Start: 05-10-2020 End: 05-10-2020 Office Visit 05/10/2020 Office Visit Cardiology Silvio Gr MD [address] [place] [phone] [facility] Start: 04-27-2020 End: 04-27-2020 Routine 04/27/2020 Routine Perinatology [facility] Start: 04-04-2020 End: 04-04-2020 Office Visit 04/04/2020 Office Visit Cardiology Silvio Gr MD [address] [place] [phone] [facility] Start: 02-18-2020 End: 02-18-2020 Routine 02/18/2020 Routine Perinatology [facility] Start: 05-24-2019 Influenza vaccination Flu vaccine (#1) [place] Start: 05-29-2018 Chlamydia screen Chlamydia screen [place] Start: 03-26-2018 A1C test (Diabetic or Prediabetic) A1C test (Diabetic or Prediabetic) [place] Start: 03-26-[address] [facility] Start: 03-26-2018 Lipid screen Lipid screen [place] Start: 2015 Screening for malignant neoplasm of cervix Cervical Cancer Screening [facility] Start: 2013 Pneumococcal 0-49 years Vaccine (1 of 2 - PCV) Pneumococcal 0-49 years Vaccine (1 of 2 - PCV) Radha Tarango [facility] Start: 2013 Pneumococcal vaccination Pneumococcal Vaccine (1 of 2 - PCV) [facility] Start: 2012 Annual PCP Team Chronic Disease Visit Annual PCP Team Chronic Disease Visit [facility] Start: 2012 Anxiety Screening Anxiety Screening [facility] Start: 2012 BP Controlled (<130/80) BP Controlled (<130/80) [facility] in Start: 2012 Depression Screening Depression Screening [facility] Start: 2012 Diabetic microalbuminuria test Diabetic microalbuminuria test [place] Start: 2012 Diabetic retinal exam Diabetic retinal exam [facility] Start: 2012 Glaucoma screening Diabetic retinal exam [facility] Start: 2012 Hepatitis C screening Hepatitis C Screening [facility] Start: 2012 HIV screening HIV Screening [facility] Start: 2012 Spirometry Spirometry [facility] Start: 2012 Urine screening for protein [facility] Start: 2009 HPV vaccine (1 - Female 3-dose series) HPV vaccine (1 - Female 3-dose series) [place] Start: 2006 COVID-19 Vaccine (1) COVID-19 Vaccine (1) [facility] Start: 2006 Depression Screen Depression Screen [facility] Start: 2005 HPV vaccine (1 - 2-dose series) HPV vaccine (1 - 2-dose series) [place] Start: 2005 HPV vaccine (1 - Female 2-dose series) HPV vaccine (1 - Female 2-dose series) [facility] Work Phone: Start: 2004 [object Object] Diabetic foot exam [place] Start: 2004 Diabetic foot examination Diabetic foot exam [facility] Start: 2004 Diabetic retinal exam Diabetic retinal exam [place], [place] Start: 2004 Glaucoma screening Dilated Retinal Exam [facility] Start: 2004 Hepatitis B screening Urine Albumin:Creatinine Ratio [facility] Start: 2000 Pneumococcal 0-64 years Vaccine (1 - PCV) Pneumococcal 0-64 years Vaccine (1 - PCV) [facility] Start: 2000 Pneumococcal 0-64 years Vaccine (1 of 1 - PPSV23) Pneumococcal 0-64 years Vaccine (1 of 1 - PPSV23) [place] Start: 2000 Pneumococcal 0-64 years Vaccine (1 of 2 - PCV) Pneumococcal 0-64 years Vaccine (1 of 2 - PCV) [facility] TARANGO [facility] Start: 2000 Pneumococcal 0-64 years Vaccine (1 of 2 - PPSV23) Pneumococcal 0-64 years Vaccine (1 of 2 - PPSV23) [facility] Start: 1999 COVID-19 Vaccine (1) COVID-19 Vaccine (1) [facility] End: 12-02-2025 ADULT [place] [employer] ADULT [place] [employer] Endoscopy Routine Chronic idiopathic constipation 1 Occurrences starting 12/02/2024 until 12/02/2025 [facility] Comment on above: 1 Occurrences starting 12/02/2024 until 12/02/2025 End: 08-05-2020 Anti-Phospholipid Ab Anti-Phospholipid Ab Lab Routine PE (pulmonary thromboembolism) (HCC) Hypercoagulable state (HCC) Smoker 1 Occurrences starting 08/05/2020 until 08/05/2020 [place] Comment on above: 1 Occurrences starting 08/05/2020 until 08/05/2020 Anti-Phospholipid Ab Anti-Phosph olipid Ab Lab Routine PE (pulmonary thromboembolism) (HCC) Hypercoagulable state (HCC) Smoker 08/05/2020 11:17 AM EST [place] End: 08-05-2020 Antithrombin III Antigen Antithrombin III Antigen Lab Routine PE (pulmonary thromboembolism) (HCC) Hypercoagulable state (HCC) Smoker 1 Occurrences starting 08/05/2020 until 08/05/2020 [place] Comment on above: 1 Occurrences starting 08/05/2020 until 08/05/2020 Antithrombin III Antigen Antithr ombin III Antigen Lab Routine PE (pulmonary thromboembolism) (HCC) Hypercoagulable state (HCC) Smoker 08/05/2020 11:17 AM EST [place] End: 01-10-2020 Bacteria identified Cx Nom (U) Urine Culture Microbiology STAT One Time for 1 Occurrences starting 01/10/2020 until 01/10/2020 [place] Comment on above: One Time for 1 Occurrences starting 12/22 until 01/10/2020 Bacteria identified Cx Nom (U) [place] End: 02-01-2020 Bacteria identified Cx Nom (U) Urine culture Microbiology Routine One Time for 1 Occurrences starting 02/01/2020 until 02/01/2020 [facility] on above: One Time for 1 Occurrences starting 01/21 until 02/01/2020 End: 02-26-2020 Bacteria identified Cx Nom (U) Urine culture Microbiology Routine One Time for 1 Occurrences starting 02/26/2020 until 02/26/2020 [facility] Comment on above: One Time for 1 Occurrences starting 01/2020 until 02/26/2020 End: 07-28-2019 Bacteria identified Cx Nom (U) Urine Culture Microbiology STAT One Time for 1 Occurrences starting 07/28/2019 until 07/28/2019 [facility] Comment on above: One Time for 1 Occurrences starting 01/2019 until 07/28/2019 End: 07-12-2024 Basic Metabolic Panel w/ Reflex to MG Basic Metabolic Panel w/ Reflex to MG Lab Routine Daily for 5 Days starting 07/08/2024 until 07/12/2024, 1 completed [facility] Comment on above: Daily for 5 Days starting 07/08/2024 unt il 07/12/2024, 1 completed End: 08-05-2020 Beta-2 Glycoprotein Antibodies Beta-2 Glycoprotein Antibodies Lab Routine PE (pulmonary thromboembolism) (HCC) Hypercoagulable state (HCC) Smoker 1 Occurrences starting 08/05/2020 until 08/05/2020 [facility] [place] Comment on above: 1 Occurrences starting 08/05/2020 until 08/05/2020 Beta-2 Glycoprotein Antibodies Beta-2 Glycoprotein Antibodies Lab Routine PE (pulmonary thromboembolism) (HCC) Hypercoagulable state (HCC) Smoker 08/05/2020 11:17 AM EST [facility] End: 12-05-2021 Blood Gas, Venous Blood Gas, Venous Lab STAT One Time for 1 Occurrences starting 12/05/2021 until 12/05/2021 [employer] Work Phone: Comment on above: One Time for 1 Occurrences starting 11/21 until 12/05/2021 End: 05-16-2020 C.trachomatis N.gonorrhoeae DNA C.trachomatis N.gonorrhoeae DNA Microbiology Routine Once for 1 Occurrences starting 05/16/2020 until 05/16/2020 [facility] Comment on above: Once for 1 Occurrences starting 05/16/20 20 until 05/16/2020 C.trachomatis N.gono rrhoeae DNA C.trachomatis N.gonorrhoeae DNA Microbiology Routine 05/16/2020 9:55 PM EDT [facility], CARLOS CBC CBC Lab Routine Daily until discontinued starting 06/14/2020, 2 completed [facility], [place] Comment on above: Daily until discontinued starting 2019, 2 completed End: 12-05-2021 CBC W Auto Differential panel - Blood CBC with Auto Differential Lab STAT One Time for 1 Occurrences starting 12/05/2021 until 12/05/2021 [employer] Phone: Comment on above: One Time for 1 Occurrences starting 11/21 until 12/05/2021 End: 10-25-2024 CBC W Auto Differential panel - Blood CBC auto differential Lab Routine Daily for 5 Days starting 10/21/2024 until 10/25/2024, 1 completed [facility] Comment on above: Daily for 5 Days starting 10/21/2024 unt il 10/25/2024, 1 completed End: 11-09-2024 CBC W Auto Differential panel - Blood CBC auto differential Lab Routine Daily for 5 Days starting 11/05/2024 until 11/09/2024, 2 completed [facility] Comment on above: Daily for 5 Days starting 11/05/2024 unt il 11/09/2024, 2 completed End: 12-05-2021 Comprehensive Metabolic Panel w/ Reflex to MG Comprehensive Metabolic Panel w/ Reflex to MG Lab STAT One Time for 1 Occurrences starting 12/05/2021 until 12/05/2021 [employer] Phone: Comment on above: One Time for 1 Occurrences starting 11/21 until 12/05/2021 End: 10-25-2024 Comprehensive Metabolic Panel w/ Reflex to MG Comprehensive Metabolic Panel w/ Reflex to MG Lab Routine Daily for 5 Days starting 10/21/2024 until 10/25/2024, 1 completed [facility] Comment on above: Daily for 5 Days starting 10/21/2024 unt il 10/25/2024, 1 completed End: 11-09-2024 Comprehensive Metabolic Panel w/ Reflex to MG Comprehensive Metabolic Panel w/ Reflex to MG Lab Routine Daily for 5 Days starting 11/05/2024 until 11/09/2024, 2 completed [facility] Comment on above: Daily for 5 Days starting 11/05/2024 unt il 11/09/2024, 2 completed End: 05-22-2021 COVID-19 COVID-19 Lab Routine Preop testing 1 Occurrences starting 05/22/2021 until 05/22/2021 [employer] Phone: Comment on above: 1 Occurrences starting 05/22/2021 until 05/22/2021 COVID-19 COVID-19 Lab Rou amanda Preop testing 05/22/2021 8:39 AM EDT [employer] Phone: End: 05-16-2020 Culture, Strep B Screen, Vaginal/Rectal Culture, Strep B Screen, Vaginal/Rectal Microbiology Routine Once for 1 Occurrences starting 05/16/2020 until 05/16/2020 [facility] Comment on above: Once for 1 Occurrences starting 05/16/20 20 until 05/16/2020 Culture, Strep B Scr een, Vaginal/Rectal Culture, Strep B Screen, Vaginal/Rectal Microbiology Routine 05/16/2020 9:55 PM EDT [facility] End: 03-29-2020 Culture, Urine Culture, Urine Microbiology Routine One Time for 1 Occurrences starting 03/29/2020 until 03/29/2020 [facility] Comment on above: One Time for 1 Occurrences starting 03/2020 until 03/29/2020 End: 09-24-2020 Culture, Urine Culture, Urine Microbiology STAT One Time for 1 Occurrences starting 09/24/2020 until 09/24/2020 [facility] Comment on above: One Time for 1 Occurrences starting 10/2020 until 09/24/2020 End: 11-23-2023 Culture, Urine [facility] [employer] Comment on above: One Time for 1 Occurrences starting 10/2023 until 11/23/2023 End: 11-28-2020 Culture, Wound Culture, Wound Microbiology Routine One Time for 1 Occurrences starting 11/28/2020 until 11/28/2020 [employer] Work Phone: Comment on above: One Time for 1 Occurrences starting 04/2021 until 11/28/2020 End: 12-15-2025 EGD - THERAPEUTIC, EUS, OR TUBE INTERVENTIONS EGD - THERAPEUTIC, EUS, OR TUBE INTERVENTIONS Endoscopy Routine Gastroparesis 1 Occurrences starting 12/15/2024 until 12/15/2025 [facility] Work Phone: Comment on above: 1 Occurrences starting 12/15/2024 until 12/15/2025 EKG 12 Lead EKG 12 Lead ECG STAT 05/25/2019 8:08 PM EDT [facility] EKG 12 Lead EKG 12 Lead ECG STAT 12/24/2022 3:23 PM EDT [employer] Work Phone: EKG 12 Lead EKG 12 Lead ECG STAT 01/30/2024 5:57 PM EDT [facility] EKG 12 Lead EKG 12 Lead ECG STAT 02/09/2025 7:57 PM EDT [facility] Electrogastrography dx transcut w/provoctve tstg EGG (ELECTROGASTROGRAPHY) Procedures Routine Gastroparesis Ordered: 09/24/2024 [facility] Work Phone: Comment on above: Ordered: 09/24/2024 End: 06-14-2020 Factor 5 Leiden Factor 5 Leiden Lab Routine One Time for 1 Occurrences starting 06/14/2020 until 06/14/2020 [facility] Comment on above: One Time for 1 Occurrences starting 05/25 until 06/14/2020 End: 08-05-2020 Factor 8 Assay Factor 8 Assay Lab Routine PE (pulmonary thromboembolism) (HCC) Hypercoagulable state (HCC) Smoker 1 Occurrences starting 08/05/2020 until 08/05/2020 [facility] Comment on above: 1 Occurrences starting 08/05/2020 until 08/05/2020 Factor 8 Assay Factor 8 Assay L ab Routine PE (pulmonary thromboembolism) (HCC) Hypercoagulable state (HCC) Smoker 08/05/2020 11:17 AM EST [facility] End: 06-15-2020 Factor V Leiden Mutation Factor V Leiden Mutation Lab Routine Once for 1 Occurrences starting 06/15/2020 until 06/15/2020 [facility] [place] Comment on above: Once for 1 Occurrences starting 06/15/20 20 until 06/15/2020 nonstress test [facility] [place] Comment on above: Daily until discontinued starting 2019 Daily until disconti nued starting 04/08/2020 Daily until disconti nued starting 04/30/2020 End: 05-24-2020 Fructosamine Fructosamine Lab Routine One Time for 1 Occurrences starting 05/24/2020 until 05/24/2020 [facility] [place] Comment on above: One Time for 1 Occurrences starting 09/2019 until 05/24/2020 Fructosamine Fructosamine Lab [employer] Label Print 05/24/2020 6:00 AM [facility] [place] Glucose [Mass/volume ] in Serum or Plasma [facility] Comment on above: 4X Daily (AC & HS) until discontinued st arting 07/07/2024 As Needed until disc ontinued starting 07/07/2024 Glucose [Mass/volume ] in Serum or Plasma [facility] Comment on above: 4X Daily (AC & HS) until discontinued st arting 10/20/2024 As Needed until disc ontinued starting 10/20/2024 Glucose [Mass/volume ] in Serum or Plasma POCT glucose Point of Care Testing Routine 4X Daily (AC & HS) until discontinued starting 11/05/2024 [facility] Comment on above: 4X Daily (AC & HS) until discontinued st arting 11/05/2024 End: 05-24-2020 HbA1c (Bld) [Mass fraction] Hemoglobin A1c Lab Routine One Time for 1 Occurrences starting 05/24/2020 until 05/24/2020 [facility] [place] Comment on above: One Time for 1 Occurrences starting 09/2019 until 05/24/2020 HbA1c (Bld) [Mass fraction] Hemo globin A1c Lab [employer] Label Print 05/24/2020 6:00 AM [facility] [place] End: 11-12-2022 INITIATE PACU OXYGEN THERAPY PROTOCOL Initiate PACU Oxygen Therapy Protocol Respiratory Care Routine Continuous until discontinued starting 11/12/2022 [employer] Phone: Comment on above: Continuous until discontinued starting 0 11/12/2022 End: 10-25-2024 Lipase [Enzymatic activity/volume] in Serum or Plasma Lipase Lab Routine Daily for 5 Days starting 10/21/2024 until 10/25/2024, 1 completed [facility] Comment on above: Daily for 5 Days starting 10/21/2024 unt il 10/25/2024, 1 completed End: 11-07-2024 Lipase [Enzymatic activity/volume] in Serum or Plasma Lipase Lab Routine Daily for 3 Days starting 11/05/2024 until 11/07/2024, 2 completed [facility] Comment on above: Daily for 3 Days starting 11/05/2024 unt il 11/07/2024, 2 completed End: 04-21-2024 Microalbumin, Ur [employer] Phone: Comment on above: Once for 1 Occurrences starting 04/21/20 24 until 04/21/2024 End: 08-05-2020 MTHFR Mutation MTHFR Mutation Lab Routine PE (pulmonary thromboembolism) (HCC) Hypercoagulable state (HCC) Smoker 1 Occurrences starting 08/05/2020 until 08/05/2020 [place] Comment on above: 1 Occurrences starting 08/05/2020 until 08/05/2020 MTHFR Mutation MTHFR Mutation L ab Routine PE (pulmonary thromboembolism) (HCC) Hypercoagulable state (HCC) Smoker 08/05/2020 11:17 AM EST [facility] [place] Nonrebreather mask oxygen [facility] [place] Comment on above: As directed - RT (PRN) until discontinue d starting 02/26/2020 As directed - RT (DC N) until discontinued starting 04/07/2020 As directed - RT (DC N) until discontinued starting 05/22/2020 As directed - RT (DC N) until discontinued starting 04/29/2020 Oxygen therapy [Mini mum Data Set] [place] Comment on above: Daily until discontinued starting 2019 Daily until disconti nued starting 06/13/2020 Daily until disconti nued starting 03/20/2021 Oxygen therapy [Mini mum Data Set] Initiate Oxygen Therapy Protocol Respiratory Care Routine As Needed until discontinued starting 11/12/2022 [facility] [employer] Work Phone: Comment on above: As Needed until discontinued starting Oxygen therapy [Mini mum Data Set] Initiate Oxygen Therapy Protocol Respiratory Care Routine Daily until discontinued starting 07/07/2024 [facility] Comment on above: Daily until discontinued starting 2023 Oxygen therapy [Mini mum Data Set] Initiate Oxygen Therapy Protocol Respiratory Care Routine Daily until discontinued starting 10/20/2024 [facility] Comment on above: Daily until discontinued starting 2024 Oxygen therapy [[facility] Data Set] Initiate Oxygen Therapy Protocol Respiratory Care Routine Daily until discontinued starting 11/05/2024 [facility] [employer] Comment on above: Daily until discontinued starting 2024 End: 06-13-2020 Path Review, Smear Path Review, Smear Lab Routine Once for 1 Occurrences starting 06/13/2020 until 06/13/2020 [facility] [place] Comment on above: Once for 1 Occurrences starting 06/13/20 until 06/13/2020 Path Review, Smear Path Review, Smear Lab Routine 06/13/2020 8:18 PM EDT [facility] [place] End: 03-29-2020 POCT glucose POCT glucose Point of Care Testing Routine One Time for 1 Occurrences starting 03/29/2020 until 03/29/2020 [facility] [place] Comment on above: One Time for 1 Occurrences starting 03/2020 until 03/29/2020 [facility] TID PC until discontinued starting 05/23 As Needed until disc ontinued starting 03/20/2021 End: 09-24-2020 , Urine , Urine Lab STAT One Time for 1 Occurrences starting 09/24/2020 until 09/24/2020 [facility] [place] Comment on above: One Time for 1 Occurrences starting 10/2020 until 09/24/2020 End: 12-05-2021 , Urine , Urine Lab STAT One Time for 1 Occurrences starting 12/05/2021 until 12/05/2021 [facility] [employer] Work Phone: Comment on above: One Time for 1 Occurrences starting 11/21 until 12/05/2021 End: 08-05-2020 Protein C Functional Protein C Functional Lab Routine PE (pulmonary thromboembolism) (HCC) Hypercoagulable state (HCC) Smoker 1 Occurrences starting 08/05/2020 until 08/05/2020 [place] Comment on above: 1 Occurrences starting 08/05/2020 until 08/05/2020 Protein C Functional Protein C F unctional Lab Routine PE (pulmonary thromboembolism) (HCC) Hypercoagulable state (HCC) Smoker 08/05/2020 11:17 AM [place] End: 08-05-2020 Protein S Functional Protein S Functional Lab Routine PE (pulmonary thromboembolism) (HCC) Hypercoagulable state (HCC) Smoker 1 Occurrences starting 08/05/2020 until 08/05/2020 [place] Comment on above: 1 Occurrences starting 08/05/2020 until 08/05/2020 Protein S Functional Protein S F unctional Lab Routine PE (pulmonary thromboembolism) (HCC) Hypercoagulable state (HCC) Smoker 08/05/2020 11:17 AM [place] End: 08-05-2020 Prothrombin Gene Mutation Prothrombin Gene Mutation Lab Routine PE (pulmonary thromboembolism) (HCC) Hypercoagulable state (HCC) Smoker 1 Occurrences starting 08/05/2020 until 08/05/2020 [place] Comment on above: 1 Occurrences starting 08/05/2020 until 08/05/2020 Prothrombin Gene Mutation Prothr ombin Gene Mutation Lab Routine PE (pulmonary thromboembolism) (HCC) Hypercoagulable state (HCC) Smoker 08/05/2020 11:17 AM [place] End: 05-22-2020 RHOGAM RHOGAM Blood Bank Routine One Time for 1 Occurrences starting 05/22/2020 until 05/22/2020 [place] Comment on above: One Time for 1 Occurrences starting 04/25 until 05/22/2020 Spirometry panel Incentive ezekiel metry Respiratory Care Routine Every 2hr while awake until discontinued starting 05/22/2020 [place] Comment on above: Every 2hr while awake until discontinued starting 05/22/2020 [facility] [place] Comment on above: Release Upon Ordering for 1 Occurrences starting 05/22/2020 Release Upon Orderin g for 1 Occurrences starting 03/20/2021 Surgical Pathology Surgical Path ology Lab Routine Dysmenorrhea Release Upon Ordering for 1 Occurrences starting 11/12/2022 RADHA TARANGO [facility] Work Phone: Comment on above: Release Upon Ordering for 1 Occurrences starting 11/12/2022 End: 02-26-2020 SVE SVE Point of Care Testing Routine One Time for 1 Occurrences starting 02/26/2020 until 02/26/2020 [facility], [place] Comment on above: One Time for 1 Occurrences starting 01/2020 until 02/26/2020 End: 04-07-2020 SVE SVE Point of Care Testing Routine One Time for 1 Occurrences starting 04/07/2020 until 04/07/2020 [facility], [place] Comment on above: One Time for 1 Occurrences starting 03/23 until 04/07/2020 End: 04-29-2020 SVE SVE Point of Care Testing Routine One Time for 1 Occurrences starting 04/29/2020 until 04/29/2020 [facility] Comment on above: One Time for 1 Occurrences starting 03/2020 until 04/29/2020 End: 05-16-2020 Trichomonas Vaginali, Molecular Trichomonas Vaginali, Molecular Microbiology Routine Once for 1 Occurrences starting 05/16/2020 until 05/16/2020 [facility] Comment on above: Once for 1 Occurrences starting 05/16/20 20 until 05/16/2020 Trichomonas Vaginali , Molecular Trichomonas Vaginali, Molecular Microbiology Routine 05/16/2020 10:07 PM EDT [facility], [place] End: 02-01-2020 Urinalysis Urinalysis Lab Routine One Time for 1 Occurrences starting 02/01/2020 until 02/01/2020 [facility] Comment on above: One Time for 1 Occurrences starting 01/21 until 02/01/2020 End: 12-05-2021 Urinalysis with Microscopic Urinalysis with Microscopic Lab STAT One Time for 1 Occurrences starting 12/05/2021 until 12/05/2021 [facility] Comment on above: One Time for 1 Occurrences starting 11/21 until 12/05/2021 End: 09-24-2020 Urinalysis, reflex to microscopic Urinalysis, reflex to microscopic Lab STAT One Time for 1 Occurrences starting 09/24/2020 until 09/24/2020 [facility] on above: One Time for 1 Occurrences starting 10/2020 until 09/24/2020 End: 02-01-2020 US GALLBLADDER RUQ US GALLBLADDER RUQ Imaging Routine Once for 1 Occurrences starting 02/01/2020 until 02/01/2020 [facility] Comment on above: Once for 1 Occurrences starting 02/01/20 20 until 02/01/2020 US NON OB TRANSVAGINAL US NON OB TRANSVAGINAL Imaging STAT 11/01/2022 4:18 PM EST RADHA SUKHDEEP [facility] Work Phone: End: 02-01-2020 US OB 14 PLUS WEEKS SINGLE OR FIRST GESTATION US OB 14 PLUS WEEKS SINGLE OR FIRST GESTATION Imaging STAT Once for 1 Occurrences starting 02/01/2020 until 02/01/2020 [facility] Comment on above: Once for 1 Occurrences starting 02/01/20 20 until 02/01/2020 US OB 14 PLUS WEEKS SINGLE OR FIRST GESTATION US OB 14 PLUS WEEKS SINGLE OR FIRST GESTATION Imaging STAT 02/01/2020 9:25 PM EDT [facility] Immunizations Immunization Date Immunization Notes Care Provider Khalif anand 03-21-2022 SARS-CoV-2 mRNA (gvdobkdwcon-hwta-yhqr ose) vaccine Yajaira GARDNER [facility] 08-13-2021 SARS-CoV-2 (COVID-19 ) mRNA BNT-162b2 vax Yajaira [facility]ARD[facility] 07-18-2021 SARS-CoV-2 (COVID-19 ) mRNA BNT-162b2 vax Yajaira [facility]ARDNER [facility] 05-24-2020 tetanus toxoid, reduced diphtheria toxoid, and acellular pertussis vaccine, adsorbed [facility] Comment on above: Result Comment: 2023: VIS DATE: 12/23/2019 05-22-2020 diphtheria, tetanus toxoids and acellular pertussis vaccine, unspecified formulation [facility] 05-22-2020 measles, mumps and rubella virus vaccine [facility], [place] 10-21-2017 tetanus toxoid, reduced diphtheria toxoid, and acellular pertussis vaccine, adsorbed [facility] Comment on above: Result Comment: 2023: VIS DATE: 11/16/2014 03-24-2016 measles, mumps and rubella virus vaccine [facility] 07-09-2011 meningococcal ACWY vaccine, unspecified formulation [facility] 07-09-2011 tetanus toxoid, reduced diphtheria toxoid, and acellular pertussis vaccine, adsorbed [facility] 07-28-2001 hepatitis B vaccine, pediatric or pediatric/adolescent dosage [facility] 06-29-1999 DTaP, unspecified formulation [facility] 06-29-1999 measles, mumps and rubella virus vaccine [facility] 06-29-1999 poliovirus vaccine, unspecified formulation [facility] 06-29-1999 varicella virus vaccine [facility] 02-05-1996 DTaP, unspecified formulation [facility] 01-26-1996 poliovirus vaccine, unspecified formulation [facility] 01-26-1996 varicella virus vaccine [facility] 11-05-1995 measles, mumps and rubella virus vaccine Lu Sarmini [facility] 08-01-1995 poliovirus vaccine, unspecified formulation Lu Sarmini [facility] 04-29-1995 hepatitis B vaccine, pediatric or pediatric/adolescent dosage Lu Sarmini [facility] 01-28-1995 DTaP, unspecified formulation Lu Sarmini [facility] 1994 DTaP, unspecified formulation Lu Sarmini [facility] 1994 DTaP, unspecified formulation [facility] 1994 poliovirus vaccine, unspecified formulation [facility] 1994 hepatitis B vaccine, pediatric or pediatric/adolescent dosage [facility] 1994 hepatitis B vaccine, pediatric or pediatric/adolescent dosage [facility] NEGATED: Highlighted row has not occurred!10-13-2024 influenza virus vaccine, unspecified formulation [facility] Payers Date Payer Category Payer Unknown 08-23-2020 Medicaid [id number] 08-23-2020 Medicaid (Managed Care) [facility] MEDICAID [id number] 09-23-2019 Private Health Insurance [facility] PLU [id number] 09/23/2019-Present [phone] [id number] [place] [id number] 09-23-2019 Private Health Insurance [facility] PLU [id number] 09/23/2019-Present [id number] [place] [phone] [id number] 05-24-2016 Unknown [facility] HEALTH PLAN [facility] PLAN xxxxxxxxxxxx 2016-Present [phone] [place] [address] xxxxxxxxxxxx [id number] 05-24-2016 Unknown [facility] HEALTH PLAN [facility] PLAN [id number] 05/24/2016-Present [phone] [place] [address] [id number] [id number] .[id number] 09-23-2015 Private Health Insurance xxxxxxxxx [id number] .[id number] 1994 Unknown [id number] 2.16.840.1.813524.3.579.2 .593 1994 Unknown [id number] 2.16.840.1.129765.3.579.2 .593 1994 Unknown [id number] 2.16.840.1.364650.3.579.2 .593 1994 Unknown [id number] 2.16.840.1.734837.3.579.2 .196 1994 Unknown [id number] 2.16.840.1.835685.3.579.2 .196 1994 Unknown [id number] 2.16.840.1.297067.3.579.2 .196 1994 Unknown [id number] 2.16.840.1.739720.3.579.2 .196 1994 Unknown [id number] 2.16.840.1.453096.3.579.2 .196 1994 Unknown [id number] 2.16.840.1.890367.3.579.2 .196 1994 Unknown [id number] 2.16.840.1.299529.3.579.2 .196 1994 Unknown [id number] 2.16.840.1.045691.3.579.2 .196 1994 Unknown [id number] 2.16.840.1.963760.3.579.2 .196 1994 Unknown [id number] 2.16.840.1.908707.3.579.2 .196 1994 Unknown [id number] 2.16.840.1.618448.3.579.2 .196 1994 Unknown [id number] 2.16.840.1.989431.3.579.2 .727 1994 Unknown [id number] 2.16.840.1.791637.3.579.2 .727 1994 Unknown [id number] 2.16.840.1.149761.3.579.2 .727 1994 Unknown [id number] 2.16.840.1.049290.3.579.2 1994 Unknown [id number] 2.16.840.1.440361.3.579.2 1994 Unknown [id number] 2.16.840.1.733244.3.579.2 1994 Unknown [id number] 2.16.840.1.851510.3.579.2 1994 Unknown [id number] 2.16.840.1.792482.3.579.2 1994 Unknown [id number] 2.16.840.1.234559.3.579.2 1994 Unknown [id number] 2.16.840.1.080800.3.579.2 1994 Unknown [id number] 2.16.840.1.271334.3.579.2 1994 Unknown [id number] 2.16.840.1.489558.3.579.2 1994 Unknown [id number] 2.16.840.1.694304.3.579.2 1994 Unknown [id number] 2.16.840.1.587164.3.579.2 1994 Unknown [id number] 2.16.840.1.170480.3.579.2 1994 Unknown [id number] 2.16.840.1.835957.3.579.2 1994 Unknown [id number] 2.16.840.1.457146.3.579.2 1994 Unknown [id number] 2.16.840.1.888035.3.579.2 1994 Unknown [id number] 2.16.840.1.091857.3.579.2 1994 Unknown [id number] 2.16.840.1.295237.3.579.2 1994 Unknown [id number] 2.16.840.1.592897.3.579.2 1994 Unknown [id number] 2.16.840.1.846417.3.579.2 1994 Unknown [id number] 2.16.840.1.776648.3.579.2 1994 Unknown [id number] 2.16.840.1.645793.3.579.2 1994 Unknown [id number] 2.16.840.1.513183.3.579.2 1994 Unknown [id number] 2.16.840.1.961912.3.579.2 1994 Unknown [id number] 2.16.840.1.084518.3.579.2 1994 Unknown [id number] 2.16.840.1.247849.3.579.2 1994 Unknown [id number] 2.16.840.1.383988.3.579.2 1994 Unknown [id number] 2.16.840.1.155028.3.579.2 1994 Unknown [id number] 2.16.840.1.959899.3.579.2 1994 Unknown [id number] 2.16.840.1.964441.3.579.2 1994 Unknown [id number] 2.16.840.1.954183.3.579.2 1994 Unknown [id number] 2.16.840.1.511922.3.579.2 1994 Unknown [id number] 2.16.840.1.791720.3.579.2 1994 Unknown [id number] 2.16.840.1.317661.3.579.2 .1259 1994 Unknown [id number] 2.16.840.1.384109.3.579.2 .9 1994 Unknown [id number] 2.16.840.1.089536.3.579.2 .1259 1994 Unknown [id number] 2.16.840.1.278214.3.579.2 .9 1994 Unknown [id number] 2.16.840.1.240851.3.579.2 .125 1994 Unknown [id number] 2.16.840.1.876178.3.579.2 .1258 1994 Unknown [id number] 2.16.840.1.844082.3.579.2 .1994 Unknown [id number] 2.16.840.1.852399.3.579.2 .1994 Unknown [id number] 2.16.840.1.683192.3.579.2 1994 Unknown [id number] 2.16.840.1.217083.3.579.2 1994 Unknown [id number] 2.16.840.1.442901.3.579.2 .1994 Unknown [id number] 2.16.840.1.275837.3.579.2 1994 Unknown [id number] 2.16.840.1.445355.3.579.2 .72 1994 Unknown [id number] 2.16.840.1.367560.3.579.2 .1994 Unknown [id number] 2.16.840.1.120633.3.579.2 .173 1994 Unknown [id number] 2.16.840.1.591043.3.579.2 .173 1994 Unknown [id number] 2.16.840.1.597903.3.579.2 .173 1994 Unknown [id number] 2.16.840.1.541659.3.579.2 .173 1994 Unknown [id number] 2.16.840.1.461823.3.579.2 .173 1994 Unknown [id number] 2.16.840.1.777706.3.579.2 .173 1994 Unknown [id number] 2.16.840.1.614444.3.579.2 .173 1994 Unknown [id number] 2.16.840.1.944186.3.579.2 .173 1994 Unknown [id number] 2.16.840.1.977086.3.579.2 .173 1994 Unknown [id number] 2.16.840.1.647556.3.579.2 .173 1994 Unknown [id number] 2.16.840.1.895744.3.579.2 .173 1994 Unknown [id number] 2.16.840.1.682718.3.579.2 .173 1994 Unknown [id number] 2.16.840.1.018204.3.579.2 .173 1994 Unknown [id number] 2.16.840.1.088500.3.579.2 .173 1994 Unknown [id number] 2.16.840.1.591084.3.579.2 .173 1994 Unknown [id number] 2.16.840.1.899154.3.579.2 .173 1994 Unknown [id number] 2.16.840.1.802282.3.579.2 .173 1994 Unknown [id number] 2.16.840.1.705424.3.579.2 .173 1994 Unknown [id number] 2.16.840.1.095566.3.579.2 .173 1994 Unknown [id number] 2.16.840.1.900115.3.579.2 .173 1994 Unknown [id number] 2.16.840.1.259343.3.579.2 .175 1994 Unknown [id number] 2.16.840.1.575862.3.579.2 .175 1994 Unknown [id number] 2.16.840.1.218317.3.579.2 .196 1994 Unknown [id number] 2.16.840.1.245336.3.579.2 .196 1994 Unknown [id number] 2.16.840.1.381836.3.579.2 .196 1994 Unknown [id number] 2.16.840.1.018706.3.579.2 .196 1994 Unknown [id number] 2.16.840.1.233600.3.579.2 .196 1994 Unknown [id number] 2.16.840.1.241056.3.579.2 .196 1994 Unknown [id number] 2.16.840.1.344519.3.579.2 .196 1994 Unknown [id number] 2.16.840.1.740925.3.579.2 .196 1994 Unknown [id number] 2.16.840.1.697179.3.579.2 .196 1994 Unknown [id number] 2.16.840.1.950717.3.579.2 .196 1994 Unknown [id number] 2.16.840.1.079422.3.579.2 .196 1994 Unknown [id number] 2.16.840.1.150661.3.579.2 .196 1994 Unknown [id number] 2.16.840.1.023654.3.579.2 .196 09-23-1960 Unknown [id number] 1.2.840.601667.1.13.239.2 .7.3.448563.315 Social History Date Type Detail Facility Start: 05-19-2019 End: 12-24-2024 Tobacco smoking status NHIS Current every day smoker [place] History of tobacco use Cigarette Smoker [place] Start: 05-19-2019 End: 10-17-2024 Cigarettes smoked current (pack per day) - Reported [place] Start: 05-19-2019 End: 10-17-2024 Alcohol intake No [facility] [place] [facility] Start: 05-13-2017 Tobacco Comment Trying to quit-patient refuses referral wants to quit on own [place] Start: 03-10-2017 Alcohol Comment socially [place] Start: 1995 Sex Assigned At Not on file [place] Start: 01-10-2020 End: 03-23-2023 Alcohol intake Current non-drinker of alcohol (finding) [place] Start: 09-16-2019 [place] Exposure to SARS-CoV -2 (event) Unable to assess [place] Start: 02-18-2020 End: 07-31-2022 Tobacco Comment 4-5cigs/day 02/18/2020 [place] Start: 04-04-2020 End: 12-24-2024 Tobacco use and exposure Never used [place] Start: 11-05-2021 End: 12-24-2022 Exposure to SARS-CoV-2 (event) Not sure [place] Start: 1995 [facility] to SARS-CoV -2 (event) Yes [facility] [employer] Start: 10-05-2022 End: 02-18-2023 History SDOH Alcohol Frequency 1 [facility] Appear Here Phone: Start: 10-05-2022 End: 02-18-2023 History SDOH Alcohol Std Drinks 0 [facility] Work Phone: Tobacco smoking status [facility] [place] Start: 12-04-2022 End: 10-13-2024 Tobacco smoking status Heavy tobacco smoker (finding) General Surgery Will Tobacco smoking status Never [facility] [place] Start: 08-03-2023 End: 09-17-2023 Alcohol intake Current drinker of alcohol (finding) [facility] How often to you hav e a drink containing alcohol? Never [facility] Start: 03-16-2021 Gender identity Identifies as female gender (finding) [facility] Start: 03-16-2021 Sexual orientation Heterosexual (finding) [facility] Has the 3 day Blinds, oil, or water [employer] threatened to shut off services in your home in past 12Mo No [facility] How often to you hav e a drink containing alcohol? Monthly or less [facility] How many standard drinks containing alcohol do you have on a typical day? 1 or 2 [facility] (I/We) worried wheth er (my/our) food would run out before (I/we) got money to buy more. Never true [facility] Are you now , , , , never or living with a partner? [facility] How hard is it for y ou to pay for the very basics like food, housing, medical care, and heating Somewhat hard [facility] Do you feel stress - tense, restless, nervous, or anxious, or unable to sleep at night because your mind is troubled all the time - these days [OSQ] Rather much [facility] Start: *Tobacco [facility] Tobacco smoking stat NHIS Tobacco smoking consumption unknown [facility] Start: 10-20-2024 End: 11-04-2024 Alcoholic beverage intake Ex-drinker (finding) [facility] Start: 12-24-2024 End: 02-17-2025 Alcoholic beverage intake Lifetime non-drinker (finding) [facility] Start: 12-24-2024 Tobacco Comment 1/2 ppd [facility] Start: 11-02-2012 Sex Female (finding) [facility] Medical Equipment Procedure Code Equipment Code Equipment Origin al Text Equipment Identifier Dates [id number] Start: 10-10-2017 End: 05-25-2019 use 1 TEST STRIP to TEST BLOOD SUGAR four times a day [id number] Start: 11-27-2019 End: 05-24-2020 use 1 LANCET to TEST BLOOD SUGAR four times a day [id number] Start: 11-27-2019 End: 05-24-2020 USE 1 THREE TIME S DAILY [id number] Start: 01-12-2020 End: 05-24-2020 TRUE [employer] BLOO D GLUCOSE TEST strip [id number] Start: 01-20-2022 1 each by Does n ot apply route daily [id number] Start: 04-09-2024 1 each by In Vit ro route in the morning and 1 each in the evening and 1 each before bedtime. [id number] Start: 04-07-2024 Goals Date Patient Goal Desired Activity /State Personal health goal Functional Status Date Assessment Result Facility 01-26-2025 Functional Status N/A [facility] 10-15-2024 Functional Status N/A [facility] 10-13-2024 Functional Status N/A [facility] 10-08-2024 Functional Status N/A [facility] 10-06-2024 Functional Status N/A [facility] 10-04-2024 Functional Status N/A [facility] 09-30-2024 Functional Status N/A [facility] 09-10-2024 Functional Status N/A [facility] 08-24-2024 Functional Status N/A [facility] 08-13-2024 Functional Status N/A [facility] 08-13-2024 Functional Status [facility] 08-10-2024 Functional Status N/A [facility] 08-07-2024 Functional Status N/A [facility] 08-06-2024 Functional Status N/A [facility] 07-29-2024 Functional Status N/A [facility] 07-05-2024 Functional Status N/A [facility] 06-20-2024 Functional Status N/A [facility] 06-09-2024 Functional Status N/A [facility] 06-01-2024 Functional Status N/A [facility] 05-23-2024 Functional Status N/A [facility] 05-22-2024 Functional Status [facility] 12-04-2022 Functional Status N/A [facility] Clinical Notes 03-20-2021 to 04-23-2025 Telephone Encounter - Dixie Grimaldo RN - 04/23/2025 8:51 AM EDTTelephone Encounter - Dixie Grimaldo RN - 04/23/2025 8:51 AM EDTTelephone Encounter - Richard Peres RN - 03/24/2025 11:57 AM EDT Note Date & Type Note Facility 04-23-2025 Telephone encounter Note Prior Authorization initiated thru Asp[employer] Portal /[place] Code: H9VFES Awaiting response Insurance: [facility] Medicaid ID: [id number] RxBIN: [id number] RxPCN:[id number] RxGroup: Tried and failed Patient has been being treated with Gimoti/Metoclopramide Nasal [place] since 12/02/2024 and it works best for her plan of care. Spoke with patient (identified by two identifiers), tried/failed/ineffective: Dulcolax/Bisacodyl, OTC, 09/23/2024-current Miralax/Polyethylene Glycol 08/13/2024-current Colace/Docusate Sodium, OTC, 04/23/2025-current Reglan/Metoclopramide 10 mg tablet 05/20/2024-12/15/2024 [facility] 04-23-2025 Miscellaneous Notes Prior Authorization initiated thru Aspn Portal /[place] Code: H9VFES Awaiting response Insurance: [employer] Medicaid ID: [id number] RxBIN: [id number] RxPCN:[place]RXPROD RxGroup: Tried and failed Patient has been being treated with Gimoti/Metoclopramide Nasal [place] since 12/02/2024 and it works best for her plan of care. Spoke with patient (identified by two identifiers), tried/failed/ineffective: Dulcolax/Bisacodyl, OTC, 09/23/2024-current Miralax/Polyethylene Glycol 08/13/2024-current Colace/Docusate Sodium, OTC, 04/23/2025-current Reglan/Metoclopramide 10 mg tablet 05/20/2024-12/15/2024 documented in this encounter [facility] 03-24-2025 Telephone encounter Note Fax number to have GES order sent is [phone]. [facility] Work Phone: 03-24-2025 Miscellaneous Notes Fax number to have GES order sent is [phone]. documented in this encounter [facility] 02-17-2025 Note HNO ID: [id number] Author: BEST REYNOSO MD Service: ? Author Type: Anesthesiologist Type: Progress Notes Filed: 02/17/2025 13:58 Note Text: Referring Or Consulting Physician: Yajaira Lackey [facility] [address] [place] [id number] CHIEF COMPLAINT: pain in my upper abdomen HPI: This is a 29 year old female here for evaluation of pain that began 1+ year ago following no particular inciting event. At this point, the pain is located in the areas detailed above (see cc). The patient describes the pain as aching and is a 9/10 in severity. It is constant. The pain is exacerbated by stress. The pain is mitigated by liquid diet The patient is currently taking the following medications for pain: tylenol The patient previously has taken the following medications for pain: tylenol Symptoms interfere with eating. The patient denies red flags In the last 6 months, Physical Therapy/Home Exercise Completed?: No Relevant [facility] records were reviewed by physician, yes Opioid Agreement: n/a Receiving Disability Income: no Last Date/Time Patient had Opioid Medication: n/a Previous Xrays?: yes Is the patient receiving analgesia/pain relief from the current medications? (yes) Has the current medication improved activities such as walking or standing? (yes) Have the current medications been associated with any adverse events? (no) Illicit drug use? (cannabis) Stella Harris MA February 17, 2025 Patient denies loss of bowel or bladder control, unintentional weight loss, h/o malignancy, fevers/chills/night sweats. No past medical history on file. PAST SURGICAL HISTORY Procedure Laterality [facility]IC[facility] INJ PAST SURGICAL HISTORY OF c section x3 PAST SURGICAL HISTORY OF Left left oophorectomy and salpingectomy REMOVAL GALLBLADDER VAGINAL HYSTERECTOMY Social History Tobacco Use Smoking status: Every Day Types: Cigarettes Smokeless tobacco: Never Tobacco comments: 1/2 ppd Substance Use Topics Alcohol use: Never Drug use: Yes Types: Marijuana Comment: smokes, vapes, edibles FH: Patient denies a family history of the current chief complaint. ALLERGIES Allergen Reactions Ketorolac Itching, Shortness of Breath Meperidine Itching, Shortness of Breath UNKNOWN REACTION Egg GI Upset Kiwi (Actinidia Chi* Itching Latex Itching Pruritis Amoxicillin Rash hives Penicillins Rash hives Phenazopyridine Mental Status Change, Other: See Comments Current Outpatient Medications Medication Sig pantoprazole DR (PROTONIX) 40 mg tablet Take 1 tablet by mouth two times a day. sucralfate (CARAFATE) 1 gram tablet Take 1 tablet by mouth two times a day. promethazine (PHENERGAN) 25 mg suppository 25 mg by RECTAL route. prochlorperazine (COMPAZINE) 5 mg tablet Take 5 mg by mouth. polyethylene glycol 3350 (MIRALAX ORAL) Take 17 g by mouth. ondansetron orally disintegrating (ZOFRAN ODT) 4 mg disintegrating tablet 4 mg. LANTUS SOLOSTAR U-100 INSULIN 100 unit/mL (3 mL) Inject 25 Units subcutaneously daily at bedtime. Taking 30 units at night JARDIANCE 10 mg tablet Take 10 mg by mouth. PROZAC 40 mg capsule Take 40 mg by mouth. glipiZIDE (GLUCOTROL) 10 mg tablet Take 20 mg by mouth. atorvastatin (LIPITOR) 40 mg tablet Take 40 mg by mouth. metoclopramide HCl (GIMOTI) 15 mg/spray nasal spray Use 1 [place] in the nose four times daily. No current facility-administered medications for this visit. Questionnaires: Patient Entered Questionnaires PROMIS Score Percentiles 12/22/2024 PROMIS Global Health Scale Physical Health Percentile 7 Mental Health Percentile 19* Patient-reported 02/12/2025 Physical Health Physical Function Percentile 3 Pain Interference Percentile 1 Percentiles provide an indication of how the patient's score ranks in relation to the general population. Higher percentile rankings indicate better function/quality of life. 50th percentile is the average of the general population and indicates half of respondents had a worse score. > 31st percentile is within normal limits or better * < 31st percentile is at least ? SD worse than population, which may be clinically relevant < 16th percentile is at least 1 SD worse than population and warrants attention Depression Screening: PHQ-9 Self-Harm (Item 9) response options: 0 Not at all 1 Several days 2 More than half the days 3 Nearly every day PHQ-9 Levels: 0-4 Minimal depression 5-9 Mild depression 10-14 Moderate depression 15-19 Moderately severe depression 20-27 Severe depression No data to display (0-4) minimal depression, (5-9) mild depression, (10-14) moderate depression, (15-19) moderately (more content not included)... [facility] 02-17-2025 History of Presen t illness Narrative Images from the original note were not included. Referring Or Consulting Physician: Yajaira Lackey [address] [facility] [id number] CHIEF COMPLAINT: pain in my upper abdomen HPI: This is a 29 year old female here for evaluation of pain that began 1+ year ago following no particular inciting event. At this point, the pain is located in the areas detailed above (see cc). The patient describes the pain as aching and is a 9/10 in severity. It is constant. The pain is exacerbated by stress. The pain is mitigated by liquid diet The patient is currently taking the following medications for pain: tylenol The patient previously has taken the following medications for pain: tylenol Symptoms interfere with eating. The patient denies red flags In the last 6 months, Physical Therapy/Home Exercise Completed?: No Relevant [place] records were reviewed by physician, yes Opioid Agreement: n/a Receiving Disability Income: no Last Date/Time Patient had Opioid Medication: n/a Previous Xrays?: yes Is the patient receiving analgesia/pain relief from the current medications? (yes) Has the current medication improved activities such as walking or standing? (yes) Have the current medications been associated with any adverse events? (no) Illicit drug use? (cannabis) Stella Harris MA February 17, 2025 Patient denies loss of bowel or bladder control, unintentional weight loss, h/o malignancy, fevers/chills/night sweats. No past medical history on file. PAST SURGICAL HISTORY Procedure Laterality Date EGD W/O [facility] SPEC VARICIES INJ PAST SURGICAL HISTORY OF c section x3 PAST SURGICAL HISTORY OF Left left oophorectomy and salpingectomy REMOVAL GALLBLADDER VAGINAL HYSTERECTOMY Social History Tobacco Use Smoking status: Every Day Types: Cigarettes Smokeless tobacco: Never Tobacco comments: 09/24 ppd Substance Use Topics Alcohol use: Never Drug use: Yes Types: Marijuana Comment: smokes, vapes, edibles FH: Patient denies a family history of the current chief complaint. ALLERGIES Allergen Reactions Ketorolac Itching, Shortness of Breath Meperidine Itching, Shortness of Breath UNKNOWN REACTION Egg GI Upset Kiwi (Actinidia Chi* Itching Latex Itching Pruritis Amoxicillin Rash hives Penicillins Rash hives Phenazopyridine Mental Status Change, Other: See Comments Current Outpatient Medications Medication Sig pantoprazole DR (PROTONIX) 40 mg tablet Take 1 tablet by mouth two times a day. sucralfate (CARAFATE) 1 gram tablet Take 1 tablet by mouth two times a day. promethazine (PHENERGAN) 25 mg suppository 25 mg by RECTAL route. prochlorperazine (COMPAZINE) 5 mg tablet Take 5 mg by mouth. polyethylene glycol 3350 (MIRALAX ORAL) Take 17 g by mouth. ondansetron orally disintegrating (ZOFRAN ODT) 4 mg disintegrating tablet 4 mg. LANTUS SOLOSTAR U-100 INSULIN 100 unit/mL (3 mL) Inject 25 Units subcutaneously daily at bedtime. Taking 30 units at night JARDIANCE 10 mg tablet Take 10 mg by mouth. PROZAC 40 mg capsule Take 40 mg by mouth. glipiZIDE (GLUCOTROL) 10 mg tablet Take 20 mg by mouth. atorvastatin (LIPITOR) 40 mg tablet Take 40 mg by mouth. metoclopramide HCl (GIMOTI) 15 mg/spray nasal spray Use 1 [place] in the nose four times daily. No current facility-administered medications for this visit. Questionnaires: Patient Entered Questionnaires PROMIS Score Percentiles 12/22/2024 PROMIS Global Health Scale Physical Health Percentile 7 Mental Health Percentile 19* Patient-reported 02/12/2025 Physical Health Physical Function Percentile 3 Pain Interference Percentile 1 Percentiles provide an indication of how the patient's score ranks in relation to the general population. Higher percentile rankings indicate better function/quality of life. 50th percentile is the average of the general population and indicates half of respondents had a worse score. > 31st percentile is within normal limits or better * < 31st percentile is at least SD worse than population, which may be clinically relevant < 16th percentile is at least 1 SD worse than population and warrants attention Depression Screening: PHQ-9 Self-Harm (Item 9) response options: 0 Not at all 1 Several days 2 More than half the days 3 Nearly every day PHQ-9 Levels: 0-4 Minimal depression 5-9 Mild depression 10-14 Moderate depression 15-19 Moderately severe depression 20-27 Severe depression No data to display (0-4) minimal depression, (5-9) mild depression, (10-14) moderate depression, (15-19) moderately severe depression, (20-27) severe depression No data to display No data to display The following information was personally collected by me, Best Reynoso MD on February 17, 2025 1:13 PM (electronically signed): Imaging Studies: CT abd I personally reviewed the above imaging findings, and discussed them with the patient in detail. REVIEW OF SYSTEMS: GENERAL: weight loss (+), malaise(+), fevers (-) HEENT: thrush(-), epistaxis(-) NECK: Negative for neck swelling. RESPIRATORY: Negative for cough, wheezing or shortness of breath (-). CARDIOVASCULAR: chest pain(-), leg swelling(-) or palpitations(-) GI: abdominal discomfort(+, blood in stools/melena/change in bowel habits(-). MUSCULOSKELETAL: joint pain(+), swelling(-), back pain(+) , muscle pain(+). SKIN: (-) for lesions, rash, and itching. PSYCH: sleep disturbance(-), mood disorder(-), recent psychosocial stressors(-). HEMATOLOGY/LYMPHOLOGY: Negative for prolonged bleeding, easy bruising, or swollen nodes (-) NEURO: headaches(-), syncope(-), paralysis(-), seizures(-), tremors (-) All other reviewed and negative other than HPI. OBJECTIVE: BP 119/85 (BP Position: Sitting) Pulse 82 LMP (LMP Unknown) GENERAL: Well appearing, in no acute distress PSYCH: Mood and affect is appropriate. Awake, alert, and oriented x 3 SKIN: Skin color, texture, turgor normal, no rashes or lesions HEENT: Normocephalic, atraumatic. PERRLA. RESP: Respirations are unlabored CARD: Regular rate. Cap refill <2s. Extremities well perfused at nailbed GI: [place] equivocal. TTP diffusely. MSK: Bilateral upper and lower extremity strength is normal and symmetric. No atrophy or tone abnormalities are noted Cervical: (-)pain to palpation over the cervical paraspinal muscles. Spurling is (-). (-)pain with neck flexion, extension or rotation. Rotation is full on right and left. Axial Loading Test negative, Baker's sign negative. No obvious deformity or signs of trauma. Normal cervical lordotic curve and full flexion and extension of cervical spine. Lumbar: Straight leg raising in the sitting position is (-) for radicular pain. (+)pain to palpation lumbar paraspinal muscles. Facet loading is (+) bilaterally. (-) pain to palpation over the PSIS, sacroiliac joint provocative maneuvers are (-) for pain reproduction bilaterally. Extremities: Peripheral joint ROM is full and pain free without obvious instability or laxity in all four extremities. No deformities, edema, or skin discoloration. Good capillary refill. Gait: Gait is smooth NEURO: Bilateral upper and lower extremity coordination are intact. Muscle stretch reflexes are physiologic and symmetric. Plantar response are downgoing. No loss of sensation is noted. 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 Dispense: 30 capsule Refill: 5 would plan to titrate this Rx upward depending on response. patient has heard of but not interested in any interventional pain invasive procedures at this point smoking cessation and lowering of hba1c likely also helpful here with the pain problem Return to clinic (in-person office visit or virtual visit/telemedicine) after all above completed fully. I spent a total of 45 minutes on the date of the service which included: *preparing to see the patient *[id number] patient care *completing clinical documentation *obtaining and/or reviewing separately obtained history *performing a medically appropriate examination *counseling and educating the patient/family/caregiver *ordering medications, tests, or procedures *communicating with other HCPs (not separately reported) *independently interpreting results (not separately reported) *communicating results to the patient/family/caregiver *care coordination (not separately reported). Of this, greater than 50% of this was spent in the presence of the patient for purposes of education and counseling regarding the diagnosis and treatment of pain. Patient is aware that any diagnostic testing is best discussed in person to fully explain the significance and resulting treatment plan. Patient is aware that they will need a follow up office visit/virtual visit for proper care. I answered the patient's questions regarding this. I discussed healthy habits, lifestyle changes and physical activity as well as disease prevention/maintenance, including where applicable the impact of tobacco/illicit drugs on pain and its treatment. It will be communicated with the referring or consulting physician above via electronic record, fax, or mail. Patient agrees with above. Best Reynoso MD February 17, 2025 documented in this encounter [facility] 02-12-2025 Note HNO ID: [id number] Author: RONALDO SÁNCHEZ, DO Service: ? Author Type: Physician Type: Progress Notes Filed: 02/12/2025 16:30 Note Text: Digestive Disease AND Surgery [place] [facility] Virtual Visit This encounter was provided via two-way, live video teleconferencing within the guidelines of state licensure rules for new and established patients. I have communicated my name and active licensure. The patient's identity and physical location were verified at the time of this visit. Either the patient or their legal c s s representative has been informed of the risks and benefits of -- and alternatives to -- treatment through a remote evaluation and consents to proceed with the evaluation remotely. Technical difficulties were not encountered. 15 minutes were spent on the teleconference with the patient. An additional 10 minutes was required for chart review/preparation, documentation, orders, and care coordination. Recording using [employer] App software for draft documentation of the visit was discussed with the patient/authorized c s s representative; all questions welcomed and answered. Patient/authorized c s s representative agreed to proceed PATIENT NAME: Gael Ruby SERVICE DATE: February 12, 2025 SERVICE TIME: 4:10 PM S/P: 01/13/2025 GPOEM Impression: - Normal oropharynx. - Esophageal mucosal changes suspicious for eosinophilic esophagitis. Biopsied. - Bilious gastric fluid. - Gastritis, characterized by erosions. Biopsied. - Gastroparesis. - Normal examined duodenum. ASSESSMENT/PLAN: 29 year old female with medical refractory gastroparesis, the etiology of which is most likely diabetic. 11/2024 EGG showing hyponormal 3 CPM with mixed dysrhythmia and negative GMAT. AIGP labs negative. There is no clinical suspicion for mid/hind-gut dysmotility based on bowel patterns and symptom distribution. She does exhibit some mild constipation however this is well-controlled on MiraLAX/laxative regimen having daily bowel movements and would only skip 1-2 days without this regimen. Case is further confounded by GERD however reasonably controlled on PPI. Now status post11/2024 G POEM procedure which has significantly improved nausea and vomiting as well as some fullness symptoms however patient struggling with epigastric pains the etiology of which is unclear. Currently patient is tolerating a Soft diet, and does not exhibit severe malnutrition/weight loss. 1. Diabetic gastroparesis associated with type 2 diabetes mellitus (HCC) (E11.43) Patient is approximately one month post-GPOAM procedure with significant improvement in emesis. However, experiencing a flare with upper abdominal pain and persistent nausea. Blood glucose levels are consistently above 250 mg/dL, which may be contributing to symptom exacerbation. - Educated patient on the importance of blood glucose control in managing gastroparesis symptoms. - Advised patient to contact wearing apparel assembler to adjust Lantus dosage or other medications to achieve better glycemic control, aiming for blood glucose levels below 200 mg/dL. - Continue current medications: Protonix and Carafate twice daily, Zofran and Phenergan suppositories as needed for nausea. - Refill prescriptions for Protonix and Carafate. - Scheduled follow-up in two months; prior to follow-up, patient to undergo a gastric emptying study using oatmeal due to egg allergy. - Instructed patient to report blood glucose levels from Dexcom on the morning of the gastric emptying study. 2. Diarrhea following gastrointestinal surgery (R19.7) Experiencing diarrhea up to four times daily since the procedure, a change from pre-surgery constipation. - Monitor bowel movements; advised patient to maintain hydration and nutritional intake. - Discussed potential dietary triggers and recommended gradual reintroduction of solid foods as tolerated. 3. Tobacco abuse counseling (Z71.6) Patient is a current smoker, which increases the risk of ulcer formation and may exacerbate gastrointestinal symptoms. - Strongly advised smoking cessation to reduce risk factors for ulcers and improve overall gastrointestinal health. 4. Gastroesophageal reflux disease without esophagitis (K21.9) GERD symptoms managed with Protonix and Carafate; no significant improvement with antacids like Mylanta or Tums. - Continue Protonix and Carafate twice daily. - Monitor for any signs of ulcer development. Patient to follow-up in 2 to 3 months with repeat gastric emptying study for recheck SUBJECTIVE HPI: Gael is a 29-year-old female with a history of medical refractory diabetic gastroparesis, presenting for follow-up after undergoing a GPOAM procedure on 01/13/2025. Gael reports significant improvement in emesis since the procedure but is currently experiencing a flare-up characterized by severe abdominal pain. The pain began a few days after transitioning from a l (more content not included)... [facility] 02-09-2025 [facility] Discharg e instructions Maria A Polanco APRN - CNP - 02/09/2025 8:55 PM EDT Continue your home medications for management of gastroparesis. Avoid marijuana as this may worsen the symptoms. Please call your GI doctor at [facility] to see if they can see you before your visit with [facility]. The following attachments cannot be sent through Care Everywhere.Gastroparesis ([place]i)documented in this encounter [facility] 02-05-2025 [facility] Discharg [facility] instructions Rod Colmenares MD - 02/05/2025 10:16 PM EDT Follow up with the listed physician or medical clinic within 24-72 hours. Return to the Emergency Department if you develop any new or concerning symptoms or if your are getting worse documented in this encounter [facility] 02-01-2025 Telephone encounter Note MARGE: 12/02/2024 [facility]: NOV: NDH: See note from 01/26/2025 been in ER, tried clears Taking gimoti as directed EGD w/pop done 01/13/2025 [facility] 02-01-2025 Miscellaneous Notes MARGE: 12/02/2024 [facility]: NOV: NDH: See note from 01/26/2025 been in ER, tried clears Taking gimoti as directed EGD w/pop done 01/13/2025 documented in this encounter [facility] 02-01-2025 Note Procedure: CT of the abdomen and pelvis with intravenous (IV) contrast. Contrast: 100 mL Omnipaque 350 IV. No oral contrast. Phase of contrast-enhancement: Portal venous. Reconstructed images: 3 mm axial, coronal, and sagittal. Clinical information: 29-year-old female with generalized abdominal pain. Prior cholecystectomy and hysterectomy. Comparison: 04/26/2024. Findings: Liver: Decreased enhancement of the liver compared to the spleen (38 Hounsfield units (HU), spleen 75 HU). Moderately enlarged, 23.5 cm cephalocaudal. Gallbladder: Surgically absent. Biliary tree: No dilatation. Pancreas: Normal. Spleen: Normal. Adrenal glands: Normal. Kidneys/ureters: Few small hypodense left renal lesions, probably benign cysts. Bladder: No radiopaque stones. Reproductive organs: Surgically absent uterus. Bowel: Few scattered linear hyperdense structures in the gastric antrum and distal transverse colon. No dilatation. Normal appendix. Peritoneum/retroperitoneum: No ascites, pneumoperitoneum, or pathologic lymph node enlargement. Aortoiliac arteries: Unremarkable. Bones: No acute fracture or destructive abnormality. Abdominal wall: Unremarkable. Lower thorax: Unremarkable. IMPRESSION: Few linear hyperdense structures in the gastric antrum and distal transverse colon, possibly ingested foreign bodies. Hepatic steatosis. Moderate hepatomegaly. Radiation Dose Estimate: CTDI(mGy):0.131587 / / / kVp:120.480563 / mAs:0.381642 / / / DLP(mGy-cm):4.373901Vymw Part: Abdomen CTDI(mGy):41.485237 / / / kVp:140.973847 / mAs:181.861193 / / / DLP(mGy-cm):2361.758784Jlba Part: Abdomen Final Dictated by: Ronaldo Childers MD Dictated DT/TM: 02.01.2025 10:51 am Signed by: Ronaldo Childers MD Signed (Electronic Signature): 02.01.2025 10:56 am (If Report Is Signed, Electronically Signed in Other Vendor System) [facility] 01-26-2025 Evaluation + Plan note Extrac cr from: Title:ED Note Author:Laurie Garcia, Alphonso Flores te:01/26/25 1. Abdominal pain (R10.9: Un specified abdominal pain) 2. Gastroparesis (K31.84: Gastroparesis) Orders: Al hydroxide/Mg hydroxide/simethicone, 30 mL, Susp-Oral, Oral, Once, Stop date 01/26/25 2:51:00 EDT, STAT, Start date 01/26/25 2:51:00 EDT atropine/hyoscyamine/PB/scopolamine, 10 mL, Elixir, Oral, Once, Stop date 01/26/25 2:51:00 EDT, STAT, Start date 01/26/25 2:51:00 EDT dicyclomine, 20 mg = 2 mL, Injection, IntraMuscular, Once, Stop date 01/26/25 1:19:00 EDT, STAT, Start 01/26/25 1:19:00 EDT, 01/26/25 1:19:00 EDT famotidine, 20 mg = 2 mL, Soln-IV, IV Push, Once, Stop date 01/26/25 1:19:00 EDT, STAT, Start date 01/26/25 1:19:00 EDT, 01/26/25 1:19:00 EDT lidocaine topical, 200 mg, 10 mL, Soln-Oral, Oral, Once, Stop date 01/26/25 2:51:00 EDT, STAT, Start 01/26/25 2:51:00 EDT metoclopramide, 10 mg = 2 mL, Injection, IV Push, Once, Stop date 01/26/25 3:19:00 EDT, STAT, Start 01/26/25 3:19:00 EDT, 01/26/25 3:19:00 EDT ondansetron, 4 mg = 2 mL, Injection, IV Push, Once, Stop date 01/26/25 1:19:00 EDT, STAT, Start date 01/26/25 1:19:00 EDT, 01/26/25 1:19:00 EDT Sodium Chloride 0.9% intravenous solution, 1,000 mL, Soln-IV, IV, Once, Stop date 01/26/25 1:19:00 EDT, STAT, Start date 01/26/25 1:19:00 EDT, Infuse over 61, minute(s) Basic Metabolic Panel Beta hCG Qual CBC w/ Auto Diff eGFR Extra Blue Tube Hepatic Function Panel Lipase Level UA with Cult Rflx XR Abdomen Series w/ Chest 1 View Future Scheduled Tests Radiology* NM Gastric Emptying Study 05/25/24 [facility] 05-06-2025 Telephone encounter Note* Telephone Encounter - Abel Beckwith - 01/26/2025 10:50 AM EDT Called pt in regards to mychart request to schedule appt with Dr Lackey. She has an OV with DR Sánchez for 4 wk post op 02/12. She will wait to hear from Dr Lackey to schedule [facility]05-06-2025 Miscellaneous Notes* Telephone Encounter - Abel Beckwith - 01/26/2025 10:50 AM EDT Called pt in regards to mychart request to schedule appt with Dr Lackey. She has an OV with DR Sánchez for 4 wk post op 02/12. She will wait to hear from Dr Lackey to schedule * Telephone Encounter - Dixie Grimaldo, NU - 01/26/2025 9:07 AM EDT MARGE: 12/02/2024 LDH: NOV: NDH: Spoke with patient Having Flare with pain /10 and nausea uses phenergan supp, compazine,zofran without relief ER x 2 [facility] Yesterday beck solo in [place] Xray done states Soft diet currently Bowels-constipated for a long time, then diarrhea started yesterday and pain and nausea worse. Normally Takes Dulcolax, stool softener, miralax for constipation Has POP scheduled 02/12/[address] Sánchez Please advise * Telephone Encounter - Laith Massey - 01/25/2025 3:04 PM EDT Gael is calling Yajaira Lackey DO today with concern regarding Patient Question (Patient was inER today in hometown states she is in a lot of pain and would like to speak with someone ) Patient has been identified by name and birthdate. Duration of symptoms: N/A Person calling: self Call patient at: at home [phone] (home) Was an appointment scheduled: No Closing statement: Symptom Call: Thank you for calling [facility], your call is very important. A nurse will call in approximately 2-4 hours during business hours. If this is an emergency, please contact 911. Laith Massey [facility] Telephone encounter Note * Telephone Encounter - Dixie Grimaldo RN - 01/26/2025 9:07 AM EDT MARGE: 12/02[birth year]24 LDH: NOV: NDH: Spoke with patient Having Flare with pain 10/10 and nausea uses phenergan supp, compazine,zofran without relief ER x 2 [facility] Yesterday beck solo in [place] Xray done states Soft diet currently Bowels-constipated for a long time, then diarrhea started yesterday and pain and nausea worse. Normally Takes Dulcolax, stool softener, miralax for constipation Has POP scheduled 02/12/[address] Sánchez Please advise [facility]05-06-2025 Hospital Discharge instructions Patient Education 01/26/2025 03:40:39 Gastroparesis Gastroparesis Gastroparesis is a condition in which food takes longer than normal to empty from the stomach. Thiscondition is also known as delayed gastric emptying. It is usually a long-term (chronic) condition. There is no cure, but there are treatments and things that you can do at home to help relieve symptoms. Treating the underlying condition that causes gastroparesis can also help relieve symptoms. What are the causes? In many cases, the cause of this condition is not known. Possible causes include: A hormone (endocrine) disorder, such as hypothyroidism or diabetes. A nervous system disease, such as Parkinson's disease or multiple sclerosis. Cancer, infection, or surgery that affects the stomach or vagus nerve. The vagus nerve runs from your chest, through your neck, and to the lower part of your brain. A connective tissue disorder, such as scleroderma. Certain medicines. What increases the risk? You are more likely to develop this condition if: You have certain disorders or diseases. These may include: ?An endocrine disorder. ?An eating disorder. ?Amyloidosis. ?Scleroderma. ?Parkinson's disease. ?Multiple sclerosis. ?Cancer or infection of the stomach or the vagus nerve. You have had surgery on your stomach or vagus nerve. You take certain medicines. You are female. What are the signs or symptoms? Symptoms of this condition include: Feeling full after eating very little or a loss of appetite. Nausea, vomiting, or heartburn. Bloating of your abdomen. Inconsistent blood sugar (glucose) levels on blood tests. Unexplained weight loss. Acid from the stomach coming up into the esophagus (gastroesophageal reflux). Sudden tightening (spasm) of the stomach, which can be painful. Symptoms may come and go. Some people may not notice any symptoms. How is this diagnosed? This condition is diagnosed with tests, such as: Tests that check how long it takes food to move through the stomach and intestines. These tests include: ?Upper gastrointestinal (GI) series. For this test, you drink a liquid that shows up well on X-rays, and then X-rays are taken of your intestines. ?Gastric emptying scintigraphy. For this test, you eat food that contains a small amount of radioactive material, and then scans are taken. ?Wireless capsule GI monitoring system. For this test, you swallow a pill (capsule) that records information about how foods and fluid move through your stomach. Gastric manometry. For this test, a tube is passed down your throat and into your stomach to measure electrical and muscular activity. Endoscopy. For this test, a long, thin tube with a camera and light on the end is passed down your throat and into your stomach to check for problems in your stomach lining. Ultrasound. This test uses sound waves to create images of the inside of your body. This can help rule out gallbladder disease or pancreatitis as a cause of your symptoms. How is this treated? There is no cure for this condition, but treatment and home care may relieve symptoms. Treatment may include: Treating the underlying cause. Managing your symptoms by making changes to your diet and exercise habits. Taking medicines to control nausea and vomiting and to stimulate stomach muscles. Getting food through a feeding tube in the hospital. This may be done in severe cases. Having surgery to insert a device called a gastric electrical stimulator into your body. This device helps improve stomach emptying and control nausea and vomiting. Follow these instructions at home: Take mpox-jgr-lpugocc and prescription medicines only as told by your health care provider. Follow instructions from your health care provider about eating or drinking restrictions. Your health care provider may recommend that you: ?Eat smaller meals more often. ?Eat low-fat foods. ?Eat low-fiber forms of high-fiber foods. For example, eat cooked vegetables instead of raw vegetables. ?Have only liquid foods instead of solid foods. Liquid foods are easier to digest. Drink enough fluid to keep your urine pale yellow. Exercise as often as told by your health care provider. Keep all follow-up visits. This is important. Contact a health care provider if you: Notice that your symptoms do not improve with treatment. Have new symptoms. Get help right away if you: Have severe pain in your abdomen that does not improve with treatment. Have nausea that is severe or does not go away. Vomit every time you drink fluids. Summary Gastroparesis is a long-term (chronic) condition in which food takes longer than normal to empty from the stomach. Symptoms include nausea, vomiting, heartburn, bloating of your abdomen, and loss of appetite. Eating smaller portions, low-fat foods, and low-fiber forms of high-fiber foods may help you manageyour symptoms. Get help right away if you have severe pain in your abdomen. This information is not intended to replace advice given to you by your health care provider. Make sure you discuss any questions you have with your health care provider. Document Revised: 01/16/2021 Document Reviewed: 01/16/2021 [employer] Patient Education 2023 [employer] 01/26/2025 03:40:39 Abdominal Pain, Adult Abdominal Pain, Adult Pain in the abdomen (abdominal pain) can be caused by many things. In most cases, it gets better with no treatment or by being treated at home. But in some cases, it can be serious. Your health care provider will ask questions about your medical history and do a physical exam to try to figure out what is causing your pain. Follow these instructions at home: Medicines Take ltfo-vuw-usffsyu and prescription medicines only as told by your provider. Do not take medicines that help you poop (laxatives) unless told by your provider. General instructions Watch your condition for any changes. Drink enough fluid to keep your pee (urine) pale yellow. Contact a health care provider if: Your pain changes, gets worse, or lasts longer than expected. You have severe cramping or bloating in your abdomen, or you vomit. Your pain gets worse with meals, after eating, or with certain foods. You are constipated or have diarrhea for more than 2 3 days. You are not hungry, or you lose weight without trying. You have signs of dehydration. These may include: ?Dark pee, very little pee, or no pee. ?Cracked lips or dry mouth. ?Sleepiness or weakness. You have pain when you pee (urinate) or poop. Your abdominal pain wakes you up at night. You have blood in your pee. You have a fever. Get help right away if: You cannot stop vomiting. Your pain is only in one part of the abdomen. Pain on the right side could be caused by appendicitis. You have bloody or black poop (stool), or poop that looks like tar. You have trouble breathing. You have chest pain. These symptoms may be an emergency. Get help right away. Call 911. Do not wait to see if the symptoms will go away. Do not drive yourself to the hospital. This information is not intended to replace advice given to you by your health care provider. Make sure you discuss any questions you have with your health care provider. Document Revised: 06/26/2023 Document Reviewed: 06/26/2023 [employer] Patient Education 2023 [employer] Follow Up Care 01/26/2025 00:58:44 With:Aly Beverly Address: [address], [address] [phone] Business (1) When:01/29/2025 Comments:Make sure to follow-up with Dr. Beverly as discussed. Return to the emergency room if your pain gets worse, vomiting recurs or any new symptoms. With:YOSSI GOLDEN Address: [address] [place] [address] Business (1) When:Within 3 Day(s) [facility] [place] 05-06-2025 NoteED Patient Education Note Gastroenterology Gastroparesis Gastroparesis is a condition in which food takes longer than normal to empty from the stomach. Thiscondition is also known as delayed gastric emptying. It is usually a long-term (chronic) condition. There is no cure, but there are treatments and things that you can do at home to help relieve symptoms. Treating the underlying condition that causes gastroparesis can also help relieve symptoms. What are the causes? In many cases, the cause of this condition is not known. Possible causes include: ??? A hormone (endocrine) disorder, such as hypothyroidism or diabetes. ??? A nervous system disease, such as Parkinson's disease or multiple sclerosis. ??? Cancer, infection, or surgery that affects the stomach or vagus nerve. The vagus nerve runs from your chest, through your neck, and to the lower part of your brain. ??? A connective tissue disorder, such as scleroderma. ??? Certain medicines. What increases the risk? You are more likely to develop this condition if: ??? You have certain disorders or diseases. These may include: ? An endocrine disorder. ? An eating disorder. ? Amyloidosis. ? Scleroderma. ? Parkinson's disease. ? Multiple sclerosis. ? Cancer or infection of the stomach or the vagus nerve. ??? You have had surgery on your stomach or vagus nerve. ??? You take certain medicines. ??? You are female. What are the signs or symptoms? Symptoms of this condition include: ??? Feeling full after eating very little or a loss of appetite. ??? Nausea, vomiting, or heartburn. ??? Bloating of your abdomen. ??? Inconsistent blood sugar (glucose) levels on blood tests. ??? Unexplained weight loss. ??? Acid from the stomach coming up into the esophagus (gastroesophageal reflux). ??? Sudden tightening (spasm) of the stomach, which can be painful. Symptoms may come and go. Some people may not notice any symptoms. How is this diagnosed? This condition is diagnosed with tests, such as: ??? Tests that check how long it takes food to move through the stomach and intestines. These testsinclude: ? Upper gastrointestinal (GI) series. For this test, you drink a liquid that shows up well on X-rays, and then X-rays are taken of your intestines. ? Gastric emptying scintigraphy. For this test, you eat food that contains a small amount of radioactive material, and then scans are taken. ? Wireless capsule GI monitoring system. For this test, you swallow a pill (capsule) that records information about how foods and fluid move through your stomach. ??? Gastric manometry. For this test, a tube is passed down your throat and into your stomach to measure electrical and muscular activity. ??? Endoscopy. For this test, a long, thin tube with a camera and light on the end is passed down your throat and into your stomach to check for problems in your stomach lining. ??? Ultrasound. This test uses sound waves to create images of the inside of your body. This can help rule out gallbladder disease or pancreatitis as a cause of your symptoms. How is this treated? There is no cure for this condition, but treatment and home care may relieve symptoms. Treatment may include: ??? Treating the underlying cause. ??? Managing your symptoms by making changes to your diet and exercise habits. ??? Taking medicines to control nausea and vomiting and to stimulate stomach muscles. ??? Getting food through a feeding tube in the hospital. This may be done in severe cases. ??? Having surgery to insert a device called a gastric electrical stimulator into your body. This device helps improve stomach emptying and control nausea and vomiting. Follow these instructions at home: ??? Take bwic-ykk-eaafztn and prescription medicines only as told by your health care provider. ??? Follow instructions from your health care provider about eating or drinking restrictions. Your health care provider may recommend that you: ? Eat smaller meals more often. ? Eat low-fat foods. ? Eat low-fiber forms of high-fiber foods. For example, eat cooked vegetables instead of raw vegetables. ? Have only liquid foods instead of solid foods. Liquid foods are easier to digest. ??? Drink enough fluid to keep your urine pale yellow. ??? Exercise as often as told by your health care provider. ??? Keep all follow-up visits. This is important. Contact a health care provider if you: ??? Notice that your symptoms do not improve with treatment. ??? Have new symptoms. Get help right away if you: ??? Have severe pain in your abdomen that does not improve with treatment. ??? Have nausea that is severe or does not go away. ??? Vomit every time you drink fluids. Summary ??? Gastroparesis is a long-term (chronic) condition in which food takes longer than normal to empty from the stomach. ??? Symptoms include nausea, vomiting, heartburn, bloating of your abdomen, and loss of ap (more content not included)...[facility]05-05-2025 Telephone encounter Note* Telephone Encounter - Laith Massey - 01/25/2025 3:04 PM EDT Gael is calling Yajaira Lackey DO today with concern regarding Patient Question (Patient was in[place] today in hometown states she is in a lot of pain and would like to speak with someone ) Patient has been identified by name and birthdate. Duration of symptoms: N/A Person calling: self Call patient at: at home [phone] (home) Was an appointment scheduled: No Closing statement: Symptom Call: Thank you for calling [facility], your call is very important. A nurse will call in approximately 2-4 hours during business hours. If this is an emergency, please contact 911. Laith Massey [facility]05-02-2025 Telephone encounter Note* Telephone Encounter - Donna Saini RN - 01/22/2025 11:33 AM EDT PA for Gimoti (renewal) submitted to [employer] via facsimile at [phone]. Awaiting response from [employer] [place] [employer]. Patient has been being treated with Gimoti/Metoclopramide Nasal [place] since 12/02/2024 and it worksbest for her plan of care. Spoke with patient (identified by two identifiers), tried/failed/ineffective: Dulcolax/Bisacodyl, OTC, 09/23/2024-current Miralax/Polyethylene Glycol 08/13/2024-current Colace/Docusate Sodium, OTC, 04/23/2025-current Reglan/Metoclopramide 10 mg tablet 05/20/2024-12/15/2024 [facility]05-[facility] Miscellaneous Notes* Telephone Encounter - Donna Saini RN - 01/22/2025 11:33 AM EDT PA for Gimoti (renewal) submitted to [employer] via facsimile at [phone]. Awaiting response from [employer] [place] [employer]. Patient has been being treated with Gimoti/Metoclopramide Nasal [place] since 12/02/2024 and it worksbest for her plan of care. Spoke with patient (identified by two identifiers), tried/failed/ineffective: Dulcolax/Bisacodyl, OTC, 09/23/2024-current Miralax/Polyethylene Glycol 08/13/2024-current Colace/Docusate Sodium, OTC, 04/23/2025-current Reglan/Metoclopramide 10 mg tablet 05/20/2024-12/15/2024 [facility] Hospital Discharge instructions* Discharge Instructions* Imelda Huynh MD - 01/01/2025 2:06 AM EDT Continue with your outpatient follow-up with GI and primary care doctor. Continue with your current nausea regimen. Return to the ER for any worsening symptoms or concerns. * Attachments The following attachments cannot be sent through Care Everywhere. * Abdominal Pain ([place]i) documented in this encounterBon [facility] NotePatient Education Materials Name: Gael Ruby Current Date: 12/28/2024 10:42:21 [place] : 1995 [facility]: [id number] The following sheet(s) are the Patient Education Leaflets for Gael Ruby Diabetes office visit holding jardiance and januvia 3 days prior to surgery. Lantus 15u night before surgery No meds morning of surgery. May use humalog day of surgery if needed. Day after surgery use lantus and humalog alone, holding glipizide until diet advances. Call on Sat & Sat week after surgery to review med recommendations. AFTER Sx: ?Trulicity 0.75,g weekly x4 weeks then 1.5mg weekly x4 weeks then 3mg weekly Breakfast: Jardiance 10mg + glipizide 10 mg + januvia 100mg (stop januvia when starting trulicity)+humalog Lunch: humalog Dinner humalog Bedtime glipizide 10 mg + Lantus 30 units + humalog Humalog: >180=2u, >200=3u, >250=4u, >300=5u, >350=6u, >400=7u CALL office Saturday and Saturday after surgery to adjust meds May call or stop by office for CGM/glucometer download and review for instrution on further med adjustment. Health Maintenance Goals Blood sugar goals ? A1c goal less than 7% to prevent long-term complications that high sugar can lead to damage of small vessels of all organs specifically eyes, heart, brain, kidneys, skin and nerves. ? Use your meter readings as a guide to improve diet and exercise. ? Fasting and premeal blood sugar goal range 80-130 ? 1-2 hours after meal, bedtime goal less than 180 Hypoglycemia treatment ? Check blood sugar if you have symptoms of low which may include sweating, hunger, lightheaded, shakiness, nausea, confusion, blurred vision If low BS less than 70 treat following Rule of 15's: ? Eat 15 g carbs: 3 glucose tabs or 4 ounces fruit juice or regular soda, or 6-7 hard candies, or 1tablespoon or sugar ? If blood sugar remains <80 after eating 15 g of carbs and waiting 15 minutes may repeat if blood sugar remains low ? No driving until glucose is normal. Instruct family members should be instructed in use of glucagon injection or nasal route in the instance of profound hypoglycemia. Diet Goals ? Continue working on proper diet choices increasing whole foodds with protein and vegetables. Avoid sugary drinks, avoid white/starchy foods (rice, pasta, potatoes), limit snacks and processed foodswith high carb foods. Weight Loss Goal ? 5-10% if BMI is over 25 through diet and exercise. Goal BMI range 18.5 to 25. Activity Goal ? Minimum 10,000 steps daily. Intentional exercise 30 minutes at least 5 days a week for a total of150 min of moderate to intense aerobic activity with goals of increasing heart rate at least 50-70%, walking is a great way to accomplish this goal Blood Pressure Goal ? Less than 130/80. Yearly urine labs and blood draw to monitor kidney function Cholesterol Goal ? LDL less than 100 and <70 in presence of heart disease. Vision ? Dilated eye exam should be performed yearly, starting within 5 years of initial diagnosis, or more often in cases of retinopathy Feet ? Daily home feet exams. Look for open wounds, developing sores, blisters, cracks, nailbed concerns. See regional account manager for toenail trimming and promptly for any sites of concern. Vaccines ? Flu Shot recommended yearly in the fall. ? COVID vaccine initial series and booster ? Pneumovax recommended once prior to age 65 and then every 5 years. ? Hepatitis B series recommended ? Zostavax recommended age 60 Healthy Meal Tips PROTEIN: Choose foods high in protein. Eating protein that is low in fat can help you control your weight. It also helps keep your heart healthy. Low-fat high-protein foods include: ? Fish ? Plant proteins, such as dry beans and peas, nuts, and soy products like tofu and soymilk ? Lean meat with all visible fat removed ? Poultry with the skin removed ? Low-fat or nonfat milk, corrage cheese, venezuelan yogurt, cheese FIBER: Fiber goal over 25 grams per day Starches, sugars, and fiber are all types of carbohydrates. Choose healthy carbohydrates high in Fiber. Fiber can help lower your cholesterol and triglycerides. Fiber is also healthy for your heart. You should have 25 grams of total fiber each day. Examples Fiber rich foods: Whole-grain breads and cereals Bulgur wheat Brown rice Whole-wheat pasta Fruits and Vegetables Dry beans and Peas CARBS: Carbohydrate goal under 150g per day Keep track of the amount of carbohydrates you eat. This can help you keep the right balance of physical activity and medicine. The amount of carbohydrates needed varies for each person depending on things such as your health, the medicines you take and how active you are. You may start with around 45 to 60 grams of carbohydrates per meal, depending on your situation. Examples of foods with less than 15 grams of carbohydrates (1 serving of carbohydrates): 1/2 cup canned or frozen fruit 1 slice Bread 1 cup of Soup Small piece of fresh fruit (4 o (more content not included)...[facility]04-03-2025 History and physical note* Chapin Foote APRN.CHIEF MINISTER - 12/24/2024 11:09 AM EDT Images from the original note were not included. [facility] HISTORY AND PHYSICAL EXAMINATION SERVICE DATE: 12/24/2024 SERVICE TIME: 11:50 AM PRIMARY CARE PHYSICIAN: No primary care provider on file. Assessment Patient has the following medical conditions which may affect meli-operative course: Essential hypertension Assessment: -Follows with No primary care provider on file. -Current RX: NONE -BP today: 147/98 Last 5 Encounter BP Readings: Date: BP: 12/02/2024 128/87 10/16/2024 123/68 Mild concentric left ventricular hypertrophy (LVH) Assessment: Per outside records review Echo 2019 [...] of tachycardia was identified from this study. Gastroesophageal reflux disease Assessment: Managing with Pantoprazole (Protonix), Metoclopramide, sucralfate Nonalcoholic fatty liver Assessment: follows with provider at home Alkaline Phosphatase 95 10/16/2024 Bilirubin, Total 0.5 10/16/2024 AST 31 10/16/2024 ALT 36 10/16/2024 Type 2 diabetes mellitus (HCC) Assessment: Follows with [facility] or PCP No primary care provider on file. - Fair control -Current medications: Glipizide Yesenia lantus -BS checks at home range about 196-200 -Last A1c Hemoglobin A1C (%) Date Value 12/02/2024 7.9 ) Factor V Leiden (HCC) Assessment: Noted per outside records No Anticoagulation See hypercoagulable state below Hypercoagulable state (HCC) Assessment: Per outside records, Factor V Leiden, not on AC - Patient is uncertain if heterozygous -vs- homozygous - Developed bilat PEs 2019 after - Work up revealed Factor V - Completed AC for the PE's for about 3-6 months, then it was d/c'd - Significant family history of thrombosis - father, pat grandfather Dyslipidemia Assessment: managing with Atorvastatin (Lipitor) History of pulmonary embolism Assessment: Noted per outside records - No current AC - Factor V Leiden - See hypercoagulable state above Obesity with body mass index 30 or greater Assessment: BMI 37 Mild intermittent asthma without complication (HCC) Assessment: Stable on current PRN RX, last used rescue inhaler, over 3 months ago - No recent exacerbations - On examination today, breathing easy, lungs CTA Chronic pancreatitis (HCC) Assessment: Per records review Diabetic gastroparesis associated with type 2 diabetes mellitus (HCC) Assessment: HPI ANESTHESIA FINDINGS: Intubation History: No abnormal airway history Significant Anesthesia Considerations: Per patient, very diff IV access; Short TM, MP IV; patient self reports slow to wake potential difficult intubation potential postop nausea/vomiting potential slow emergence potential difficult IV/vein access Airway History: No abnormal airway history [place] Activity Status Index: METS: Walk indoors, such as around the house (1.75 METs) Do light work around the house, such as dusting or washing dishes (2.70 METs) Take care of self; that is eating, dressing, bathing, using the toilet (2.75 METs) Walk a block or two on level ground (2.75 METs) Do moderate work around the house, such as vacuuming, sweeping floors, or carrying in groceries (3.50 METs) Climb a flight of stairs or walk up a hill (5.50 METs) Participate in moderate recreational activites, such as golf, bowling, dancing, doubles tennis, or throwing a baseball or football (6.00 METs) Participate in strenuous sport, such as swimming, singles tennis, football, basketball, or skiing (7.50 METs) DASI Score: 32.45 (Elliptical routinely with no CP/SOB) Patient denies any chest pain or undue shortness of breath with the above physical activity. Clinical Frailty Scale: 4. Apparently vulnerable STOP-Bang Score: Has or is being treated for high blood pressure BMI greater than 35 kg/m^2 Denies snoring loudly Denies feeling tired, fatigued, or sleepy during the daytime Has not been observed to stop breathing or choking/gasping during sleep Patient 50 years old or younger Does not have a large neck Non-male patient STOP-Bang Score: 2 [id number] Score: Age: <65 Sex: female CHF history: No Hypertension history: Yes Stroke/TIA/thromboembolism history: No Vascular disease history: No Diabetes history: Yes [id number] Score: 3 ASA Class: 3 I - PHYSICAL EVALUATION AIRWAY Patient intubated: No. Tracheostomy tube not present Mallampati: IV. TM distance: <3 FB. Neck ROM: full ROM without neurological symptoms. Mouth opening: non-adequate. Short neck: no. Thick neck: no Microretrognathia/Micronagthia/Recessed Chin: No DENTAL Dental findings: missing tooth/teeth and poor dentition. II - ANESTHESIA PLAN ASA Score: 3 Anesthetic plan additional comments: *PACC/TCI - anesthesia choice. Beta Floresita Monitoring Plan Post Procedure Analgesic Plan Patient / Surrogate agrees to blood products: blood products not planned Prepared for Surgery: optimally prepared for surgery, pending day of surgery. - tsh A1c 11/2024 cbc cmp 10/2024 reviewed and accepted for procedure. - EKG 06/16 in reviewed and accepted for procedure. - No further testing required per PACC guidelines CONSULTS: Patient does not require consults for optimization at this time Planned Anesthetic: anesthesia choice The Following Tests/Procedures Have Been Initiated: No orders of the defined types were placed in this encounter. REASON FOR VISIT: Gael Ruby is a 29 year old female who is scheduled for EGD, per oral pyloromyotomy at the request of Dr. Ronaldo Sánchez for consultation. My final recommendation will be communicated back to the requesting physician by way of shared medical record or letter. Subjective The patient has the following: COVID-19 Immunization Status Current Care Gaps Covid-19 Vaccine ( season) Overdue since 05/24/2024 08/13/2021 Imm Admin: COVID-19 original vaccine, age 12+ yr, monovalent (PFIZER- BIONTECH - PURPLE TOP) 07/18/2021 Imm Admin: COVID-19 original vaccine, age 12+ yr, monovalent (PFIZER- BIONTECH - PURPLE TOP) CHIEF COMPLAINT: POP HPI: Gael Ruby, a 29 year old year old female presents for anesthesia consult for upcoming procedure. Surgery or procedure is listed above. Patient has history diabetic gastroparesis. She has daily pain, nausea, hx chronic pancreatis and fatty liver. She is here today with her who helps provide the history. REVIEW OF SYSTEMS: General: No weight loss, malaise or fevers. Neurological: No history of TIA's, stroke, OYSTER PREPARER tumor, impaired sensorium, hemiplegia, paraplegia orquadraplegia. No neurological symptoms or problems. Respiratory: Positive for: asthma. Negative for: COPD, dyspnea, URI < 2 weeks and obstructive sleep apnea. Cardiovascular: Positive for: DVT/PE, hyperlipidemia and hypertension Negative for: AICD/PPM, anticoagulation therapy, arrhythmia, CAD and murmur/valvular heart disease. GI: See HPI. Positive for: liver disease and pancreatitis Negative for: abdominal pain, GERD, hepatitis and irritable bowel syndrome. : Negative for: dysuria and hematuria. Endocrine: Positive for: diabetes mellitus. Patient's diabetes mellitus is controlled by diet, insulin and oral agents. Negative for: hyperthyroidism and hypothyroidism. Hematology: Positive for: anemia and factor V Leiden. Negative for: hemophilia, thrombocytopenia, von Willebrand disease and chronic anti-coagulation/platelet meds. Oncology: Negative for: CA metastasis. Psych: No history of psychiatric symptoms or problems. Musculoskeletal: Negative for joint pain or swelling, back pain or muscle pain. Skin: Negative for lesions, rash and itching. History reviewed. No pertinent past medical history. PAST SURGICAL HISTORY Procedure Laterality Date EGD W/O BRSH SPEC VARICIES INJ PAST SURGICAL HISTORY OF c section x3 PAST SURGICAL HISTORY OF Left left oophorectomy and salpingectomy REMOVAL GALLBLADDER VAGINAL HYSTERECTOMY FAMILY HISTORY Problem Relation Age of Onset Factor 5 Leiden Mother possible (not tested) other (factor v) Father possible (not tested) Venous Thromboembolism Father DVTs in the leg Blood Clots Paternal Grandfather This was fatal Anesthesia Problems No Family History Bleeding disorder No Family History Social History Tobacco Use Smoking status: Every Day Types: Cigarettes Smokeless tobacco: Never Tobacco comments: 1/2 ppd Substance Use Topics Alcohol use: Never Drug use: Yes Types: Marijuana Comment: smokes, vapes, edibles Prior to Admission medications as of 12/24/24 1150 Medication Sig Last Dose Taking prochlorperazine (COMPAZINE) 5 mg tablet Take 5 mg by mouth. Yes ondansetron orally disintegrating (ZOFRAN ODT) 4 mg disintegrating tablet 4 mg. Yes LANTUS SOLOSTAR U-100 INSULIN 100 unit/mL (3 mL) Inject 25 Units subcutaneously daily at bedtime. Taking 30 units at night Yes JARDIANCE 10 mg tablet Take 10 mg by mouth. Yes PROZAC 40 mg capsule Take 40 mg by mouth. Yes glipiZIDE (GLUCOTROL) 10 mg tablet Take 20 mg by mouth. Yes atorvastatin (LIPITOR) 40 mg tablet Take 40 mg by mouth. Yes metoclopramide HCl (GIMOTI) 15 mg/spray nasal spray Use 1 [place] in the nose four times daily. Yes sucralfate (CARAFATE) 1 gram tablet Take 1 tablet by mouth two times a day. Start taking medicationafter procedure for [address] (PROTONIX) 40 mg tablet Take 1 tablet by mouth two times a day. Start taking medication after procedure for 4 weeks. polyethylene glycol 3350 (MIRALAX ORAL) Take 17 g by mouth. pantop[address] (PROTONIX) 40 mg tablet 40 mg. No medication comments found. ALLERGIES Allergen Reactions Ketorolac Itching, Shortness of Breath Meperidine Itching, Shortness of Breath UNKNOWN REACTION Egg GI Upset Kiwi (Actinidia Chi* Itching Latex Itching Pruritis Amoxicillin Rash hives Penicillins Rash hives Phenazopyridine Mental Status Change, Other: See Comments Objective PHYSICAL EXAM: General: alert and oriented, healthy appearance and obese. Pertinent negatives noted - not distressed. Skin: normal color, no rash or lesions. HEENT: EOM intact, pupils equal round and pupils reactive to light. No additional findings for patient's throat or neck. Cardiovascular: regular rate and rhythm, normal S1 and S2, no rub, murmurs, or gallop. Pertinent negatives noted - no murmur. Respiratory: normal breath sounds, no wheezes or crackles. Abdomen: bowel sounds present and soft. Pertinent negatives noted - not tender. Extremities: Pertinent negatives noted - no cellulitis and no edema. Neurological: normal cognition and motor skills. PAIN ASSESSMENT: Pain Pain Level: 6 Pain Location: Abdomen Description: Stabbing Frequency: Continuous VITALS: BP 147/98 Pulse 85 Temp (Src) 97.5 (Oral) Resp 20 Ht 5' 8 (1.73m) Wt 244 lb 0.8 oz (110.7kg) SpO2 98% BMI 37.12 kg/(m^2). Diagnostic tests reviewed for today's visit: Lab Value Units Date High Low HB 15.0 g/dL 10/16/2024 15.5 11.5 HCT 45.4 % 10/16/2024 46.0 36.0 WBC 14.49 k/uL 10/16/2024 11.00 3.70 PLT 331 k/uL 10/16/2024 400 150 NA 140 mmol/L 10/16/2024 144 136 K 4.1 mmol/L 10/16/2024 5.1 3.7 GLUC 152 mg/dL 10/16/2024 99 74 BUN 11 mg/dL 10/16/2024 21 7 CREAT 0.67 mg/dL 10/16/2024 0.96 0.58 PTSEC No results within date range. INR No results within date range. APTT No results within date range. ALT 36 U/L 10/16/2024 38 7 AST 31 U/L 10/16/2024 35 13 TBILI 0.5 mg/dL 10/16/2024 1.3 0.2 TSH 0.310 mIU/L 12/02/2024 4.200 0.270 Lab Value Units Date High Low HCGQT No results within date range. UHCG No results within date range. HCG, BODY* No results within date range. Lab Value Units Date High Low ABORHD No results within date range. ABSCREEN No results within date range. Hemoglobin A1C (%) Date Value 12/02/2024 7.9 No results found for this or any previous visit (from the past 8760 hours). No results found for this or any previous visit (from the past 35738 hours). Instructions Given to Patient: Instructions located in the after visit summary. Patient given verbal and written preop instructions and voices comprehension and compliance. SIGNATURE: Chapin Foote APRN.CNP PATIENT NAME: Gael Ruby DATE: December 24, 2024 TIME: 11:09 AM PAGER/CONTACT #: [facility]04[facility]25 History and physical note* Chapin Foote APRN.CNP - 12/24/2024 11:09 AM EDT Images from the original note were not included. [facility] HISTORY AND PHYSICAL EXAMINATION SERVICE DATE: 12/24/2024 SERVICE TIME: 11:50 AM PRIMARY CARE PHYSICIAN: No primary care provider on file. Assessment Patient has the following medical conditions which may affect meli-operative course: Essential hypertension Assessment: -Follows with No primary care provider on file. -Current RX: NONE -BP today: 147/98 Last 5 Encounter BP Readings: Date: BP: 12/02/2024 128/87 10/16/2024 123/68 Mild concentric left ventricular hypertrophy (LVH) Assessment: Per outside records review Echo 2020 in completed for tachycardia: Summary Global left ventricular [...] of tachycardia was identified from this study. Gastroesophageal reflux disease Assessment: Managing with Pantoprazole (Protonix), Metoclopramide, sucralfate Nonalcoholic fatty liver Assessment: follows with provider at home Alkaline Phosphatase 95 10/16/2024 Bilirubin, Total 0.5 10/16/2024 AST 31 10/16/2024 ALT 36 10/16/2024 Type 2 diabetes mellitus (HCC) Assessment: Follows with [facility] or PCP No primary care provider on file. - Fair control -Current medications: Glipizide Jardiance, lantus -BS checks at home range about 196-200 -Last A1c Hemoglobin A1C (%) Date Value 12/02/2024 7.9 ) Factor V Leiden (HCC) Assessment: Noted per outside records No Anticoagulation See hypercoagulable state below Hypercoagulable state (HCC) Assessment: Per outside records, Factor V Leiden, not on AC - Patient is uncertain if heterozygous -vs- homozygous - Developed bilat PEs 2019 after - Work up revealed Factor V - Completed AC for the PE's for about 3-6 months, then it was d/c'd - Significant family history of thrombosis - father, pat grandfather Dyslipidemia Assessment: managing with Atorvastatin (Lipitor) History of pulmonary embolism Assessment: Noted per outside records - No current AC - Factor V Leiden - See hypercoagulable state above Obesity with body mass index 30 or greater Assessment: BMI 37 Mild intermittent asthma without complication (HCC) Assessment: Stable on current PRN RX, last used rescue inhaler, over 3 months ago - No recent exacerbations - On examination today, breathing easy, lungs CTA Chronic pancreatitis (HCC) Assessment: Per records review Diabetic gastroparesis associated with type 2 diabetes mellitus (HCC) Assessment: HPI ANESTHESIA FINDINGS: Intubation History: No abnormal airway history Significant Anesthesia Considerations: Per patient, very diff IV access; Short TM, MP IV; patient self reports slow to wake potential difficult intubation potential postop nausea/vomiting potential slow emergence potential difficult IV/vein access Airway History: No abnormal airway history Christianson Activity Status Index: METS: Walk indoors, such as around the house (1.75 METs) Do light work around the house, such as dusting or washing dishes (2.70 METs) Take care of self; that is eating, dressing, bathing, using the toilet (2.75 METs) Walk a block or two on level ground (2.75 METs) Do moderate work around the house, such as vacuuming, sweeping floors, or carrying in groceries (3.50 METs) Climb a flight of stairs or walk up a hill (5.50 METs) Participate in moderate recreational activites, such as golf, bowling, dancing, doubles tennis, or throwing a baseball or football (6.00 METs) Participate in strenuous sport, such as swimming, singles tennis, football, basketball, or skiing (7.50 METs) DASI Score: 32.45 (Elliptical routinely with no CP/SOB) Patient denies any chest pain or undue shortness of breath with the above physical activity. Clinical Frailty Scale: 4. Apparently vulnerable STOP-Bang Score: Has or is being treated for high blood pressure BMI greater than 35 kg/m^2 Denies snoring loudly Denies feeling tired, fatigued, or sleepy during the daytime Has not been observed to stop breathing or choking/gasping during sleep Patient 50 years old or younger Does not have a large neck Non-male patient STOP-Bang Score: 2 [id number] Score: Age: <65 Sex: female CHF history: No Hypertension history: Yes Stroke/TIA/thromboembolism history: No Vascular disease history: No Diabetes history: Yes [id number] Score: 3 ASA Class: 3 I - PHYSICAL EVALUATION AIRWAY Patient intubated: No. Tracheostomy tube not present Mallampati: IV. TM distance: <3 FB. Neck ROM: full ROM without neurological symptoms. Mouth opening: non-adequate. Short neck: no. Thick neck: no Microretrognathia/Micronagthia/Recessed Chin: No DENTAL Dental findings: missing tooth/teeth and poor dentition. II - ANESTHESIA PLAN ASA Score: 3 Anesthetic plan additional comments: *PACC/TCI - anesthesia choice. Beta Floresita Monitoring Plan Post Procedure Analgesic Plan Patient / Surrogate agrees to blood products: blood products not planned Prepared for Surgery: optimally prepared for surgery, pending day of surgery. - tsh A1c 11/2024 cbc cmp 10/2024 reviewed and accepted for procedure. - EKG 06/16 in reviewed and accepted for procedure. - No further testing required per PACC guidelines CONSULTS: Patient does not require consults for optimization at this time Planned Anesthetic: anesthesia choice The Following Tests/Procedures Have Been Initiated: No orders of the defined types were placed in this encounter. REASON FOR VISIT: Gael Ruby is a 29 year old female who is scheduled for EGD, per oral pyloromyotomy at the request of Dr. Ronaldo Sánchez for consultation. My final recommendation will be communicated back to the requesting physician by way of shared medical record or letter. Subjective The patient has the following: COVID-19 Immunization Status Current Care Gaps Covid-19 Vaccine () Overdue since 05/24/2024 08/13/2021 Imm Admin: COVID-19 original vaccine, age 12+ yr, monovalent (PFIZER- BIONTECH - PURPLE TOP) 07/18/2021 Imm Admin: COVID-19 original vaccine, age 12+ yr, monovalent (PFIZER- BIONTECH - PURPLE TOP) CHIEF COMPLAINT: POP HPI: Gael Ruby, a 29 year old year old female presents for anesthesia consult for upcoming procedure. Surgery or procedure is listed above. Patient has history diabetic gastroparesis. She has daily pain, nausea, hx chronic pancreatis and fatty liver. She is here today with her who helps provide the history. REVIEW OF SYSTEMS: General: No weight loss, malaise or fevers. Neurological: No history of TIA's, stroke, OYSTER PREPARER tumor, impaired sensorium, hemiplegia, paraplegia orquadraplegia. No neurological symptoms or problems. Respiratory: Positive for: asthma. Negative for: COPD, dyspnea, URI < 2 weeks and obstructive sleep apnea. Cardiovascular: Positive for: DVT/PE, hyperlipidemia and hypertension Negative for: AICD/PPM, anticoagulation therapy, arrhythmia, CAD and murmur/valvular heart disease. GI: See HPI. Positive for: liver disease and pancreatitis Negative for: abdominal pain, GERD, hepatitis and irritable bowel syndrome. : Negative for: dysuria and hematuria. Endocrine: Positive for: diabetes mellitus. Patient's diabetes mellitus is controlled by diet, insulin and oral agents. Negative for: hyperthyroidism and hypothyroidism. Hematology: Positive for: anemia and factor V Leiden. Negative for: hemophilia, thrombocytopenia, von Willebrand disease and chronic anti-coagulation/platelet meds. Oncology: Negative for: CA metastasis. Psych: No history of psychiatric symptoms or problems. Musculoskeletal: Negative for joint pain or swelling, back pain or muscle pain. Skin: Negative for lesions, rash and itching. History reviewed. No pertinent past medical history. PAST SURGICAL HISTORY Procedure Laterality Date EGD W/O BRSH SPEC VARICIES INJ PAST SURGICAL HISTORY OF c section x3 PAST SURGICAL HISTORY OF Left left oophorectomy and salpingectomy REMOVAL GALLBLADDER VAGINAL HYSTERECTOMY FAMILY HISTORY Problem Relation Age of Onset Factor 5 Leiden Mother possible (not tested) other (factor v) Father possible (not tested) Venous Thromboembolism Father DVTs in the leg Blood Clots Paternal Grandfather This was fatal Anesthesia Problems No Family History Bleeding disorder No Family History Social History Tobacco Use Smoking status: Every Day Types: Cigarettes Smokeless tobacco: Never Tobacco comments: 09/24 ppd Substance Use Topics Alcohol use: Never Drug use: Yes Types: Marijuana Comment: smokes, vapes, edibles Prior to Admission medications as of 12/24/24 1150 Medication Sig Last Dose Taking prochlorperazine (COMPAZINE) 5 mg tablet Take 5 mg by mouth. Yes ondansetron orally disintegrating (ZOFRAN ODT) 4 mg disintegrating tablet 4 mg. Yes LANTUS SOLOSTAR U-100 INSULIN 100 unit/mL (3 mL) Inject 25 Units subcutaneously daily at bedtime. Taking 30 units at night Yes JARDIANCE 10 mg tablet Take 10 mg by mouth. Yes PROZAC 40 mg capsule Take 40 mg by mouth. Yes glipiZIDE (GLUCOTROL) 10 mg tablet Take 20 mg by mouth. Yes atorvastatin (LIPITOR) 40 mg tablet Take 40 mg by mouth. Yes metoclopramide HCl (GIMOTI) 15 mg/spray nasal spray Use 1 [place] in the nose four times daily. Yes sucralfate (CARAFATE) 1 gram tablet Take 1 tablet by mouth two times a day. Start taking medicationafter procedure for [address] (PROTONIX) 40 mg tablet Take 1 tablet by mouth two times a day. Start taking medication after procedure for 4 weeks. polyethylene glycol 3350 (MIRALAX ORAL) Take 17 g by mouth. pantop[address] (PROTONIX) 40 mg tablet 40 mg. No medication comments found. ALLERGIES Allergen Reactions Ketorolac Itching, Shortness of Breath Meperidine Itching, Shortness of Breath UNKNOWN REACTION Egg GI Upset Kiwi (Actinidia Chi* Itching Latex Itching Pruritis Amoxicillin Rash hives Penicillins Rash hives Phenazopyridine Mental Status Change, Other: See Comments Objective PHYSICAL EXAM: General: alert and oriented, healthy appearance and obese. Pertinent negatives noted - not distressed. Skin: normal color, no rash or lesions. HEENT: EOM intact, pupils equal round and pupils reactive to light. No additional findings for patient's throat or neck. Cardiovascular: regular rate and rhythm, normal S1 and S2, no rub, murmurs, or gallop. Pertinent negatives noted - no murmur. Respiratory: normal breath sounds, no wheezes or crackles. Abdomen: bowel sounds present and soft. Pertinent negatives noted - not tender. Extremities: Pertinent negatives noted - no cellulitis and no edema. Neurological: normal cognition and motor skills. PAIN ASSESSMENT: Pain Pain Level: 6 Pain Location: Abdomen Description: Stabbing Frequency: Continuous VITALS: BP 147/98 Pulse 85 Temp (Src) 97.5 (Oral) Resp 20 Ht 5' 8 (1.73m) Wt 244 lb 0.8 oz (110.7kg) SpO2 98% BMI 37.12 kg/(m^2). Diagnostic tests reviewed for today's visit: Lab Value Units Date High Low HB 15.0 g/dL 10/16/2024 15.5 11.5 HCT 45.4 % 10/16/2024 46.0 36.0 WBC 14.49 k/uL 10/16/2024 11.00 3.70 PLT 331 k/uL 10/16/2024 400 150 NA 140 mmol/L 10/16/2024 144 136 K 4.1 mmol/L 10/16/2024 5.1 3.7 GLUC 152 mg/dL 10/16/2024 99 74 BUN 11 mg/dL 10/16/2024 21 7 CREAT 0.67 mg/dL 10/16/2024 0.96 0.58 PTSEC No results within date range. INR No results within date range. APTT No results within date range. ALT 36 U/L 10/16/2024 38 7 AST 31 U/L 10/16/2024 35 13 TBILI 0.5 mg/dL 10/16/2024 1.3 0.2 TSH 0.310 mIU/L 12/02/2024 4.200 0.270 Lab Value Units Date High Low HCGQT No results within date range. UHCG No results within date range. HCG, BODY* No results within date range. Lab Value Units Date High Low ABORHD No results within date range. ABSCREEN No results within date range. Hemoglobin A1C (%) Date Value 12/02/2024 7.9 No results found for this or any previous visit (from the past 8760 hours). No results found for this or any previous visit (from the past 44898 hours). Instructions Given to Patient: Instructions located in the after visit summary. Patient given verbal and written preop instructions and voices comprehension and compliance. SIGNATURE: Chapin Foote APRN.CHIEF MINISTER PATIENT NAME: Gael Ruby DATE: December 24, 2024 TIME: 11:09 AM [facility]AGER[facility]CONTACT #[facility] Instructions* Patient Instructions* Chapin Foote APRN.CNP - 12/24/2024 11:09 AM EDT Images from the original note were not included. [facility] PATIENT PREOPERATIVE INSTRUCTIONS Ronaldo Sánchez DO has scheduled you for your procedure at this surgery center: [facility]: [phone] -- [place] [address]. Please read below carefully for your personalized instructions. Arrival Time for Surgery: - The Surgery Center or hospital where you are having surgery will call the afternoon before surgery (or Saturday for Saturday surgery) with a scheduled arrival time. - If you have not heard by 4 pm, please contact the surgery center above. Please be aware that emergency situations arise, which may delay or change your surgical time. If this happens, we will notify you as soon as possible and regret any inconvenience Dietary Restrictions: - Please follow your pre-operative fasting/full liquid diet/clear liquid diet instructions from your surgeon's office. - Nothing to eat or drink after midnight except sips of water with approved medications, unless youwere instructed otherwise by the surgeon. - no milk / coffee creamer - no pulp juices If you are on tube feedings, then you need to stop them at midnight, or follow your surgeon's instructions. - Do not drink any alcohol after midnight the night before your surgery. Medications: Unless instructed differently below, stay on all of your medications until your surgery. Approved medications to take the morning of surgery with a sip of water: If you start any new medications after today's visit, please contact the surgeon's office. Pre-Surgery Med Instructions Medication Instructions prochlorperazine (COMPAZINE) 5 mg tablet Do not take the day of surgery ondansetron orally disintegrating (ZOFRAN ODT) 4 mg disintegrating tablet Do not take the day of surgery LANTUS SOLOSTAR U-100 INSULIN 100 unit/mL (3 mL) see below JARDIANCE 10 mg tablet Hold 3 days before surgery. Last dose 01/09/25. PROZAC 40 mg capsule Do not take the day of surgery glipiZIDE (GLUCOTROL) 10 mg tablet Do not take the day of surgery atorvastatin (LIPITOR) 40 mg tablet Do not take the day of surgery metoclopramide HCl (GIMOTI) 15 mg/spray nasal spray Do not take the day of surgery If you are currently using a euzn-aef-jnhi injectable or oral medication for diabetes or weight loss such as Dulaglutide (Trulicity), Exenatide (Byetta, Bydureon), Liraglutide (Victoza, Saxenda), Semaglutide (Ozempic, Wegovy, Rybelsus), or Tirzepatide (Mounjaro), the medicine should be stopped at least 7 days before surgery. These medicines can cause food to remain in your stomach for a very longtime and increase the risks from surgery and anesthesia. Not stopping the medication for a long enough time may result in your surgery being rescheduled. If you take Insulin, please follow these instructions: Long acting Insulin - Take 75% of your usual evening dose the day before your procedure ( 22 Units). Blood Thinning Medications: - Stop NSAIDS (Ibuprofen, Advil, Aleve, Motrin, Celebrex, Mobic, Voltaren/Diclofenac, etc.) 7 days before surgery, or as directed by your surgeon. - Aspirin: Stop Aspirin 7 days before surgery, or as directed by your surgeon. If you have a cardiac stent DO NOT STOP YOUR ASPIRIN - Stop all herbal and dietary supplements 7 (seven) days before your procedure. - You may take Tylenol (Acetaminophen) or any of your pain medications that do not contain aspirin or NSAIDS as needed. Important Reminders: - If you are prescribed inhalers for breathing, continue using them. - If you use a CPAP or BiPAP machine, please bring this with you if you are able. - If you are on Oxygen, please bring it with you the day of the procedure - Candy, mints, and tobacco products are NOT permitted the morning of surgery. - Hearing aids, dentures and glasses may be worn the morning of surgery. - NO jewelry, body piercings, makeup, hairpins or contacts are to be worn the day of surgery. If you develop symptoms such as a fever, cold, or flu, or have other changes to your health within TWO DAYS of scheduled surgery or the morning of surgery, please contact the surgery center above. Personal Belongings: -Please have photo ID and insurance cards. -If you do not have a copy of advance directives on file with us, please bring a copy with you on the day of surgery. - Leave ALL valuables and money at home or with family members. For Outpatient Procedures: - YOU MUST HAVE A RESPONSIBLE HOSPITALITY TEAM MEMBER TAKE YOU HOME. A POWER MARKETER OR HEAD OF TRAINING AND DEVELOPMENT CANNOT BE MADE A RESPONSIBLE HOSPITALITY TEAM MEMBER. - We recommend that a responsible person stays with you overnight to take care of you. - You cannot stay in a hotel alone after outpatient surgery. You will not be permitted to have yoursurgery, if you do not have someone to take care of you. If you already have an Advance Directive, please fax a copy to [phone] or email to for it to be added to your chart. If you do not have an Advance Directive, you can find the appropriate form and more information at [email or web address]. We recommend that youcomplete the Advance Directive form found on the website and bring it with you the day of your surgery. It can be witnessed and scanned into your chart that day. Chapin Foote APRN.CHIEF MINISTER documented in [facility]Reg[facility]25 Telephone encounter Note * Telephone Encounter - Richard Peres RN - 12/15/2024 1:57 PM EDT Patient scheduled for POP 01/13/2025. Post POP follow up in 4 weeks to be scheduled by GP team. Aware of need for [facility]. Pre and post POP instructions discussed in detail with written copy provided via [employer]ot[employer]. Discussed meds and pended. No other questions/concerns at this time. [facility] Miscellaneous Notes* Telephone Encounter - Richard Peres RN - 12/15/2024 1:57 PM EDT Patient scheduled for POP 01/13/2025. Post POP follow up in 4 weeks to be scheduled by GP team. Aware of need for [facility]. Pre and post POP instructions discussed in detail with written copy provided via [employer]. Discussed meds and pended. No other questions/concerns at this time. documented in this encounterRegional [facility] Center03-25-2025 NoteHNO ID: [id number] Author: RONALDO SÁNHCEZ, DO Service: ? Author Type: Physician Type: Progress Notes Filed: 12/15/2024 11:38 Note Text: [facility] [place] Gastroparesis/Dysmotility Virtual Consultation This encounter was provided via two-way, live video teleconferencing within the guidelines of state licensure rules for new and established patients. I have communicated my name and active licensure. The patient's identity and physical location were verified at the time of this visit. Either the patient or their legal c s s representative has been informed of the risks and benefits of -- and alternatives to -- treatment through a remote evaluation and consents to proceed with the evaluation remotely. Technical difficulties were not encountered. 30 minutes were spent on the teleconference with the patient. An additional 15 minutes was required for chart review/preparation, documentation, orders, and care coordination. SERVICE DATE: 12/15/2024 SERVICE TIME: 10:43 AM PRIMARY CARE PHYSICIAN: No primary care provider on file. Yajaira Lackey [address] [facility] [address] My final recommendations will be communicated back to the requesting physician by way of shared Medical record or letter to requesting physician via [place] mail. Assessment ASSESSMENT 29 year old female with medical refractory gastroparesis, the etiology of which is most likely diabetic. 11/2024 EGG showing hyponormal 3 CPM with mixed dysrhythmia and negative GMAT. AIGP labs negative. There is no clinical suspicion for mid/hind-gut dysmotility based on bowel patterns and symptom distribution. She does exhibit some mild constipation however this is well-controlled on MiraLAX/laxative regimen having daily bowel movements and would only skip 1-2 days without this regimen. Case is further confounded by GERD however reasonably controlled on PPI. Currently patient is tolerating a Soft diet, and does not exhibit severe malnutrition/weight loss. Based on patient's etiology, current symptoms, and dysmotility workup, I feel that patient is an appropriate candidate for pyloric therapy. It was discussed in detail that the procedure would primarily aim to improve symptoms of vomiting/retching as well as delayed fullness. There may be some ancillary improvements to a lesser extent in areas of nausea and upper abdominal pressure, but is not guaranteed. Symptoms response of pain, nausea, bloating, and bowel patterns are unpredictable and may be confounded by other factors. Patient will ultimately require longitudinal adjunctive care including medical, nutritional/dietary, and behavioral/psychosocial support for optimal symptom palliation PLAN I discussed surgical therapy for gastroparesis in detail. Based on this discussion, Gael Ruby wishes to proceed with peroral pyloromyotomy -Schedule EGD with peroral pyloromyotomy (declines EMPTIES enrollment at this time) -Low particle gastroparesis diet as tolerated [facility] packet reviewed -Continue intranasal metoclopramide as previously prescribed GI, providing reasonable benefit at least with nausea and vomiting, plan to continue through procedure and can discuss weaning if able postoperatively -Continue Protonix for GERD, escalate to Protonix/Carafate twice daily 30 days postop -Continue current MiraLAX/laxative regimen for constipation, currently well-controlled having daily bowel movements -Patient to follow-up 4 weeks after procedure for recheck Risks of the procedure including bleeding (including major bleeding requiring transfusion), perforation, infection/abscess, ulceration (need for adherence to acid suppressive therapy), exacerbation of symptoms, symptom recurrence, anesthesia related complications, cardiopulmonary events, thromboembolic events, aspiration/pneumonia, dental gum injury, failure to identify/treat a condition, need for additional procedures/surgeries, as well as other rare complications including were presented. Alternatives of Pyloroplasty, Pyloric Dilation and Botox, and continued medical/dietary management were reviewed. Patient elects to proceed. NAME: Gael Ruby CLINIC NO: [id number] DATE OF SERVICE: December 15, 2024 This is an initial consultation for Gael Ruby who was referred to me by Dr. Yajaira Lackey for evaluation of medical refractory gastroparesis. My final recommendation will be communicated via shared electronic medical record. CHIEF COMPLAINT Diabetic Gastroparesis HISTORY OF PRESENT ILLNESS Gael Ruby is a 29 year old female who comes in today for surgical evaluation for management of gastroparesis. The patient has been evaluated thoroughly including an EGD, and gastric emptying study. History is notable for pancreatitis, PE, DM2, endometriosis, HTN, factor V Leiden, GERD, anxiety (more content not included)...[facility] 12-15-2024 History of Present illness Narrative* Ronaldo Sánchez, DO - 12/15/2024 10:42 AM EDT Images from the original note were not included. [facility] [place] Gastroparesis/Dysmotility Virtual Consultation This encounter was provided via two-way, live video teleconferencing within the guidelines of statelicensure rules for new and established patients. I have communicated my name and active licensure.The patient's identity and physical location were verified at the time of this visit. Either the patient or their legal c s s representative has been informed of the risks and benefits of -- and alternatives to -- treatment through a remote evaluation and consents to proceed with the evaluation remotely.Technical difficulties were not encountered. 30 minutes were spent on the teleconference with the patient. An additional 15 minutes was required for chart review/preparation, documentation, orders, and care coordination. SERVICE DATE: 12/15/2024 SERVICE TIME: 10:43 AM PRIMARY CARE PHYSICIAN: No primary care provider on file. Yajaira Lackey [facility] [address] [facility] [address] My final recommendations will be communicated back to the requesting physician by way of shared Medical record or letter to requesting physician via [place] mail. Assessment ASSESSMENT 29 year old female with medical refractory gastroparesis, the etiology of which is most likely diabetic. 11/2024 EGG showing hyponormal 3 CPM with mixed dysrhythmia and negative GMAT. AIGP labs negative. There is no clinical suspicion for mid/hind-gut dysmotility based on bowel patterns and symptom d istribution. She does exhibit some mild constipation however this is well- controlled on MiraLAX/laxative regimen having daily bowel movements and would only skip 1-2 days without this regimen. Case is further confounded by GERD however reasonably controlled on PPI. Currently patient is tolerating aSoft diet, and does not exhibit severe malnutrition/weight loss. Based on patient's etiology, current symptoms, and dysmotility workup, I feel that patient is an appropriate candidate for pyloric therapy. It was discussed in detail that the procedure would primarily aim to improve symptoms of vomiting/retching as well as delayed fullness. There may be some ancillary improvements to a lesser extent in areas of nausea and upper abdominal pressure, but is not guaranteed. Symptoms response of pain, nausea, bloating, and bowel patterns are unpredictable and maybe confounded by other factors. Patient will ultimately require longitudinal adjunctive care including medical, nutritional/dietary, and behavioral/psychosocial support for optimal symptom palliation PLAN I discussed surgical therapy for gastroparesis in detail. Based on this discussion, Gaeldarvin Ruby wishes to proceed with peroral pyloromyotomy -Schedule EGD with peroral pyloromyotomy (declines EMPTIES enrollment at this time) -Low particle gastroparesis diet as tolerated [facility] packet reviewed -Continue intranasal metoclopramide as previously prescribed GI, providing reasonable benefit at least with nausea and vomiting, plan to continue through procedure and can discuss weaning if able postoperatively -Continue Protonix for GERD, escalate to Protonix/Carafate twice daily 30 days postop -Continue current MiraLAX/laxative regimen for constipation, currently well- controlled having dailybowel movements -Patient to follow-up 4 weeks after procedure for recheck Risks of the procedure including bleeding (including major bleeding requiring transfusion), perforation, infection/abscess, ulceration (need for adherence to acid suppressive therapy), exacerbation of symptoms, symptom recurrence, anesthesia related complications, cardiopulmonary events, thromboembolic events, aspiration/pneumonia, dental gum injury, failure to identify/treat a condition, need for additional procedures/surgeries, as well as other rare complications including were presented. Alternatives of Pyloroplasty, Pyloric Dilation and Botox, and continued medical/dietary management were reviewed. Patient elects to proceed. NAME: Gael Ruby CLINIC NO: [id number] DATE OF SERVICE: December 15, 2024 This is an initial consultation for Gael Ruby who was referred to me by Dr. Yajaira Lackey for evaluation of medical refractory gastroparesis. My final recommendation will be communicated via shared electronic medical record. CHIEF COMPLAINT Diabetic Gastroparesis HISTORY OF PRESENT ILLNESS Gael Ruby is a 29 year old female who comes in today for surgical evaluation for management of gastroparesis. The patient has been evaluated thoroughly including an EGD, and gastric emptying study. History is notable for pancreatitis, PE, DM2, endometriosis, HTN, factor V Leiden, GERD, anxiety/depression, PTSD, hiatal hernia, steatosis of liver, bilateral oophorectomy, C section, cholecystectomy and hysterectomy. Patient had an abnormal gastric emptying study 04/2024 showing 37% retention at 4hours. Reports that gastroparesis symptoms started in early 2023 particularly with satiety/fullness as well as poor appetite. Had some type of food poisoning around that time. Subsequently developed nausea and dizziness. She does have history of type 2 diabetes however A1c has been generally good, no neuropathy. She was briefly placed on Trulicity in 2023 but has been off medication for several monthswithout any changes in her symptoms. Gimoti is helping much more with nausea than PO reglan. Top 3 Symptoms: 1) Nausea, 2) Vomiting, 3) Loss of Appetite Duration of symptoms (months): 12 months Diet: Soft/bland foods, favors carbs and liquids Weight changes in last 3 months: Stable hovers around 235-240lbs GERD: Daily heartburn > regurgitation. Protonix once daily, with some breakthrough Dysphagia: Yes, Pharyngeal/Cervical, solids and pills, every day Bowel Movements: Constipation, but moves daily with Miralax + Laxative Pain: Upper epigastric, sharp. Eating worse few hrs after eating Narcotics: None Smoking/Vaping: Smoker 1/2 PPD THC: Most days in the week smoke edibles Previous surgery: cholecystectomy, hysterectomy, x3, Oophrectomy Previous Feeding tube(s): None EGD with Botox: None - If so, how long did it last: N/A Job/Edu/Retired/Disability: Disabled Gastric Emptying Study Results (04/2024) 1 Hour = 88% Retained 2 Hour = 86% Retained 4 Hour = 63% Retained SMART Pill (N/A) Not ordered EGG (12/04/2024) Gastroparesis cardinal symptom index 1. nausea 4 2. retching 3 3. vomiting 4 4. stomach fullness 3 5. not able to finish a normal-sized meal 3 6. feeling excessively full after meals 4 7. loss of appetite 3 8. bloating (feeling like you need to loosen your clothes) 3 9. stomach or belly visibly larger 2 GCSI - 3.14 Scale (0-none; 1-very mild; 2-mild; 3-moderate; 4-severe; 5-very severe) PAST HISTORY No past medical history on file. No past surgical history on file. No family history on file. Current Outpatient Medications on File Prior to Visit Medication Sig prochlorperazine (COMPAZINE) 5 mg tablet Take 5 mg by mouth. polyethylene glycol 3350 (MIRALAX ORAL) Take 17 [address] mouth. pantoprazole [address] (PROTONIX) 40 mg tablet 40 mg. ondansetron orally disintegrating (ZOFRAN ODT) 4 mg disintegrating tablet 4 mg. metoclopramide HCl (REGLAN) 10 mg tablet Take 10 mg by mouth. LANTUS SOLOSTAR U-100 INSULIN 100 unit/mL (3 mL) Inject 25 Units subcutaneously. JARDIANCE 10 mg tablet Take 10 mg by mouth. PROZAC 40 mg capsule Take 40 mg by mouth. glipiZIDE (GLUCOTROL) 10 mg tablet Take 20 mg by mouth. atorvastatin (LIPITOR) 40 mg tablet Take 40 mg by mouth. metoclopramide HCl (GIMOTI) 15 mg/spray nasal spray Use 1 [place] in the nose four times daily. No current facility-administered medications on file prior to visit. REVIEW OF SYSTEMS: General: Weight loss gradual and Malaise Neuro: No Hx of stroke or seizures Respiratory: No history of current cough or dyspnea, or pneumonia in the past 6 weeks. No history of respiratory/pulmonary symptoms or problems Cardiovascular: Positive for: HLD GI: See HPI : No history of UTI in past 6 weeks. No history of renal failure. Not currently on or requiring dialysis. No history of symptoms or problems. 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 : Denies Endocrine: Diabetes Mellitus on insulin Hematology: No history of bleeding or clotting disorder. Pt is not taking anti- coagulation or platelet medications. No history of hematological symptoms or problems. Oncology: No history of CA metastasis, chemo within 30 days, or radiotherapy within 90 days. Has not lost 10% of body wt in 6 months. No history of oncological symptoms or problems. Psych: Anxiety, Depression Musculoskeletal: Back pain Skin: Negative for lesions, rash and itching. Physical Exam There were no vitals taken for this visit. GENERAL: AAOx3, NAD EYES: Non-icteric, EOMI NOSE: Septum midline, no drainage ORAL: Tongue midline, no exudates NECK: Normal ROM PULM: Breathing non-labored without stridor or wheezing ABDOMEN: Reports soft, Non-distended, epigastric tenderness EXTREMITIES: Normal ROM SKIN: Non-icteric, no diffuse rashes PSYCH: Appropriate mood and affect. SIGNATURE: Ronaldo Sánchez DO PATIENT NAME: Gael Ruby DATE: December 15, 2024 TIME: 10:43 AM documented in this encounterRegional Medical Center03-14-2025 NoteHNO ID: [id number] Author: YAJAIRA LACKEY DO Service: ? Author Type: Physician Type: Progress Notes Filed: 12/04/2024 13:37 Note Text:[facility]03-14-2025 History of Present illness Narrative* Yajaira Lackey DO - 12/04/2024 1:37 PM EDT Images from the original note were not included. documented in this encounterRegional Medical Center03-13-2025 Telephone encounter Note * Telephone Encounter - Marques Grijalva MA - 12/03/2024 2:04 PM EDT Approved Prior authorization approved Payer: [facility] Note from payer: Your PA request for [id number] was approved for 56 days. The PA# assigned is [id number]. Approved Medication: GIMOTI 15 MG NASAL SPRAY Approval Details Authorization number: [id number] Authorized from December 02, 2024 to January 26, 2025 Electronic appeal: Not supported View History [facility]03[facility] Miscellaneous Notes* Telephone Encounter - Marques Grijalva MA - 12/03/2024 2:04 PM EDT Approved Prior authorization approved Payer: [facility] Note from payer: Your PA request for [id number] was approved for 56 days. The PA# assigned is [id number]. Approved Medication: GIMOTI 15 MG NASAL SPRAY Approval Details Authorization number: [id number] Authorized from December 02, 2024 to January 26, 2025 Electronic appeal: Not supported View History documented in this encounterRegional Medical Center03-12-2025 Telephone encounter Note * Telephone Encounter - Karla Mcnally RN - 12/02/2024 3:44 PM EDT PA for Gimoti initiated electronically through [employer]. Awaiting response [place] Medicaid ID# [id number] Rx BIN [id number] Rx PCN OHRXPROD [facility] Miscellaneous Notes* Telephone Encounter - Karla Mcnally RN - 12/02/2024 3:44 PM EDT PA for Gimoti initiated electronically through [employer]. Awaiting response [place] Medicaid ID# [id number] Rx BIN [id number] Rx PCN OHRXPROD documented in this encounterRegional Medical Center03-12-2025 History of Present illness Narrative* Yajaira Lackey, - 12/02/2024 2:00 PM EDT GASTROPARESIS CONSULT Patient is referred by Dr. Aly Beverly for an opinion regarding GP and my final recommendations will be communicated back to the requesting physician by way of a copy of today's office notes. PRESENTING COMPLAINT & HISTORY Gael is a 29 yr old female w/hx of pancreatitis, PE, DM2, endometriosis, HTN, factor V Leiden, GERD, anxiety/depression, PTSD, hiatal hernia, steatosis of liver, bilateral oophorectomy, C section, cholecystectomy and hysterectomy that had an abnormal gastric emptying study 04/2024 showing 37% retention at 4 hours. Gastroparesis symptoms started spring 2023 with early satiety, lack of appetite,increased nausea and dizziness. Diagnosed with GES in April. DM2, diagnosed in 2015, denies neuropathy, Hgb A1c 8.0 (09/2024). Was on Trulicity in 2023; has been off for around 3-4 months per patient. She has been to the ER 100 times in 2023. Diet: grazes through the day as tolerated. Constipation with average bm once a day on daily Miralax, Dulcolax, and stool softener. Without medication would only move bowels 3 x per week. Constipationstarted in April 2024 - prior to that she reports no issues with constipation. Reglan is helping with symptoms. Takes prn Compazine and Zofran, as well as Phenergan suppositories for nausea. States she doesn't vomit that often. C/o early satiety and stomach fullness with moderate appetite loss. Drinks one Ensure or [employer] Diabetes nutrition drink per day. Intermittent marijuana use. Has struggled with some anorexia and binge/purging her freshman yr in highschool. States eating disorder behaviors resolved on their own - denies professional treatment. Incomplete evacuation and dyssynergic defecation. Patient is interested in learning more about EMPTIES Trial: Yes Patient is a candidate for EMPTIES Trial: Yes Gastrointestinal Symptoms Reflux/heartburn: Yes Protonix Abdominal pain/discomfort: Yes continuous abdominal that varies in severity, generally upper abdominal pain. Eating worsens pain. Weight loss: Yes Lost 10 lbs since April. Weighs around 240 lbs per patient. Do you have less than 3 bowel movements per week? No Diarrhea: No Constipation: Yes average bowel movement is typically once a day; small amount, doesn't completely evacuate. Takes Dulcolax, Miralax and OTC stool softener - takes daily. Without medication would move bowel 3 x per week. Constipation started in April 2024 - prior was having regular bowel movementswithout medication Malnutrition: No Gastroparesis Cardinal Symptom Index (CGSI) 1. Nausea: 4 2. Retchin 3. Vomitin 4. Stomach fullness: 4 5. Not able to finish a normal-sized meal: 5 6. Feeling excessively full after meals: 4 7. Loss of appetite: 3 8. Bloating (feeling like you need to loosen your clothes): 2 9. Stomach or belly visibly larger: 2 CGSI Score: 2.89 Scale (0-none; 1-very mild; 2-mild; 3-moderate; 4-severe; 5-very severe) MEDICATION HISTORY Promotility Drugs - Reglan (Metoclopramide): Yes unsure on how often she is taking; helps symptoms - Gimoti (Metoclopramide nasal): No - Motilium (Domperidone): No - Erythromycin (E-mycin): No - Propulsid (Cisapride)_: No Other - Tricyclic Antidepressants (nortriptyline - Pamelor; amitriptyline - Elavil): No - Buspirone (Buspar): No - Mirtazapin (Remeron): No Anti-Nausea Medications - Compazine (Prochlorperazine): Yes just ran out of RX - helps nausea - Phenergan (Promethazine): Yes prn suppositories - Benadryl (Diphenhydramine): No - Zofran (Ondansetron): Yes prn - Scopace (Scopolamine Patch): used in the past - worked well - Granisetron (Kytril or Sancuso): No - Tigan (Trimethobenzamide)_: No GLP-1 Receptor Agonists (for Diabetes or Weight loss): Yes Shahidity no longer taking Constipation Medications - Bulking Agents (Metamucil,Citrucel, Fibercon): Yes - Osmotic Laxatives (MOM, Polyethylene glycol (PEG), lactulose, sorbitol,MiraLax, Chronulal, Cephulac,Xylitol): Yes Miralax daily - Stimulant Laxatives (Ex-Lax, Senokot,Correctol, Dulcolax): Yes Dulcolax daily - Stool Softeners (Colace): Yes daily - Chloride Channel Activator (Amitiza): no - Linzess: insurance would not cover - Trulance: no - Motegrity: Yes insurance would not cover - Ibsrela: no Pain Medications - Does the patient see a apprentice painter brush for chronic pain?No - Is the patient taking narcotic pain medication for chronic abdominal pain? No - Narcotic Medications: (Tramadol, Fentanyl, codeine, hydrocodone, Hydromorphone, methadone, morphine, Oxycodone) No Drug use - History or current drug use (Marijuana, Cocaine, Heroine, etc...) Yes marijuana intermittent weekly Eating Disorders - Does the patient have a history of eating disorders Yes If yes, please explain: anorexia and binge and purging - [employer] [place] [employer] Resolved on it's own. Psychiatric Disorders - Does the patient have a history of psychiatric disorders including PTSD: Yes If yes, please explain: anxiety, depression, and PTSD. Nutrition - Has the patient met with a inner tube inserter for diet recommendations with Gastroparesis? No - Jejunostomy (J-tube): _No - Gastrostomy (G-tube): No - Gastro-Jejunostomy (GJ-tube): _No - Nasojejunal (NJ-tube): _No - Nasogastric (NG-tube): _No - TPN (IV): _No - IV home hydration (IV): _No Medical Records - Has the patient had a smart capsule study completed? No - Does the patient have a history of any foregut surgery (vagotomy, hiatal hernia repair/KYLIE Fundoplication, Heller Myotomy, gastrectomy, gastric bypass)?No If surgery, recent UGI? No - EGD: Yes - Botox Injections: No Patient Name Gael Ruby Age [age] year old Gastroparesis Consult Test Date Completed Results Labs EGD 09/02/2024 Findings: Impression: Normal esophagus, attempted empiric dilation of the esophagus but because of biting on the white blood it was not possible to pass the dilator through the bite block Erythema in the antrum, mild patchy. Widley open pylorus. Otherwise normal stomach. Biopsies of thestomach were taken to rule out H pylori. Mild patchy erythema in the duodenum with loss of villi random biopsies were taken to rule out celiac disease. Pathology: A. Stomach biopsy - gastric mucosa compatible with mild reactive gastropathy - no H. Pylori microorganisms identified with immunostain B. Duodenum biopsy - duodenal mucosa within normal limits. Gastric Emptying Study 05/14/2024 FINDINGS: The gastric emptying were calculated as follows: At 60 min, there is 12% emptying of the stomach. At 120 min, there is 14% emptying of the stomach. At 240 min, there is 37% emptying of the stomach. No significant esophageal retention, hiatal hernia or reflux was observed. IMPRESSION: Severely delayed gastric emptying. CT Abd/Pelvis 06/08/2024 Impression 1. Hepatomegaly and hepatic steatosis similar to prior. 2. No acute infective or inflammatory process. 3. No bowel obstruction. Consults GI No past surgical history on file. No current outpatient medications on file. No current facility-administered medications for this visit. ALLERGIES No Known Allergies No family history on file. GI SPECIFIC ROS Difficulty swallowing / foods sticking in throat: No Hoarseness: No Chronic cough: No Regurgitation: Yes Chest pain: No Recent change in bowel movements: No Bloody or black, bowel movements: No Loss of control of bowel movements: No Night sweats, fever, chills: No Thought or memory problems: No Fluid in abdomen (ascites): No Prominent leg swelling: No Vomiting blood: No REVIEW OF SYSTEMS GENERAL: Weight loss HEENT: No changes in hearing or vision, no nose bleeds or other nasal problems RESPIRATORY: Negative for cough, hemoptysis, wheezing, COPD, dyspnea or shortness of breath CARDIOVASCULAR: Negative for chest pain, leg swelling, hypertension, CHF or palpitations : No history of dysuria, frequency or incontinence 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 General appearance: alert and in no acute distress Skin: Skin color, texture, turgor normal, no suspicious rashes or lesions Head: normal Eyes: Anicteric sclera. Pupils are equally round and reactive to light. Extraocular movements are intact. Ears: Negative Nose/Sinuses: Negative Oropharynx: Negative findings: lips normal without lesions Neck: Negative findings: no jugular venous distention Back: motor and sensory appear to be normal Lungs: Unlabored on room air Heart: RRR without murmur, gallop, or rubs. No ectopy Abdomen: Normal abdominal exam Extremities: Negative findings: No deformities present Musculoskeletal: Range of motion normal in hips, knees, shoulders, and spine, No joint swelling, deformity, or tenderness Peripheral pulses: Normal Neuro: Negative findings: speech normal, mental status intact, cranial nerves 2- 12 intact Plan Given the risk of autoimmune gastrointestinal dysmotility (AGID) as a possible cause for this patient's symptoms, as well as the fact the patient has yet to be evaluated for AGID, a full workup will be undertaken. If the antibody tests reveal a positive result the patient will then need to be treated with IVIG therapy as this is the only known treatment available at this time for AGID. Encounter Diagnosis ICD-10-CM 1. Gastroparesis K31.84 CREATINE KINASE/CK LACTATE DEHYDROGENASE HEMOGLOBIN A1C THYROID STIMULATING HORMONE T4 FREE/FREE THYROXINE PYRUVATE+LACTATE BL AMINO ACIDS, PLASMA W/ CONSULTATION CARNITINE FREE AND TOTAL, PLASMA ACETYLCHOLINE REC BINDING AB VOLTAGE GATED CA IGG VOLTAGE-GATED POTASSIUM REY AB GLUTAMIC AC DECARBOXYLASE AB ORGANIC ACIDS UR, QUANT W/CONSULTATION IMMUNOGLOBULIN A IMMUNOGLOBULIN G IMMUNOGLOBULIN M C-REACTIVE PROTEIN SEDIMENTATION RATE, WESTERGREN CYTOKINE PANEL 13, SERUM ESTROGEN FRACTION BL 2. Diabetic gastroparesis (HCC) (HCC) E11.43 metoclopramide HCl (GIMOTI) 15 mg/spray nasal spray K31.84 DISCONTINUED: metoclopramide HCl (GIMOTI) 15 mg/spray nasal spray 3. Chronic idiopathic constipation K59.04 ADULT [place] ANOR[facility]OMET[facility] Yajaira Lackey DO 12/01/2024 [facility]25 NoteHNO ID: [id number] Author: YAJAIRA LACKEY, DO Service: ? Author Type: Physician Type: Progress Notes Filed: 12/02/2024 14:02 Note Text: GASTROPARESIS CONSULT Patient is referred by Dr. Aly Beverly for an opinion regarding GP and my final recommendations will be communicated back to the requesting physician by way of a copy of today's office notes. PRESENTING COMPLAINT AND HISTORY Gael is a 29 yr old female w/hx of pancreatitis, PE, DM2, endometriosis, HTN, factor V Leiden, GERD, anxiety/depression, PTSD, hiatal hernia, steatosis of liver, bilateral oophorectomy, C section, cholecystectomy and hysterectomy that had an abnormal gastric emptying study 04/2024 showing 37% retention at 4 hours. Gastroparesis symptoms started spring 2023 with early satiety, lack of appetite, increased nausea and dizziness. Diagnosed with GES in April. DM2, diagnosed in 2015, denies neuropathy, Hgb A1c 8.0 (09/2024). Was on Trulicity in 2023; has been off for around 3-4 months per patient. She has been to the ER 100times in 2023. Diet: grazes through the day as tolerated. Constipation with average bm once a day on daily Miralax, Dulcolax, and stool softener. Without medication would only move bowels 3 x per week. Constipation started in April 2024 - prior to that she reports no issues with constipation. Reglan is helping with symptoms. Takes prn Compazine and Zofran, as well as Phenergan suppositories for nausea. States she doesn't vomit that often. C/o early satiety and stomach fullness with moderate appetite loss. Drinks one Ensure or [employer] Diabetes nutrition drink per day. Intermittent marijuana use. Has struggled with some anorexia and binge/purging her freshman yr in highschool. States eating disorder behaviors resolved on their own - denies professional treatment. Incomplete evacuation and dyssynergic defecation. Patient is interested in learning more about EMPTIES Trial: Yes Patient is a candidate for EMPTIES Trial: Yes Gastrointestinal Symptoms Reflux/heartburn: Yes Protonix Abdominal pain/discomfort: Yes continuous abdominal that varies in severity, generally upper abdominal pain. Eating worsens pain. Weight loss: Yes Lost 10 lbs since April. Weighs around 240 lbs per patient. Do you have less than 3 bowel movements per week? No Diarrhea: No Constipation: Yes average bowel movement is typically once a day; small amount, doesn't completely evacuate. Takes Dulcolax, Miralax and OTC stool softener - takes daily. Without medication would move bowel 3 x per week. Constipation started in April 2024 - prior was having regular bowel movements without medication Malnutrition: No Gastroparesis Cardinal Symptom Index (CGSI) 1. Nausea: 4 2. Retchin 3. Vomitin 4. Stomach fullness: 4 5. Not able to finish a normal-sized meal: 5 6. Feeling excessively full after meals: 4 7. Loss of appetite: 3 8. Bloating (feeling like you need to loosen your clothes): 2 9. Stomach or belly visibly larger: 2 CGSI Score: 2.89 Scale (0-none; 1-very mild; 2-mild; 3-moderate; 4-severe; 5-very severe) MEDICATION HISTORY Promotility Drugs - Reglan (Metoclopramide): Yes unsure on how often she is taking; helps symptoms - Gimoti (Metoclopramide nasal): No - Motilium (Domperidone): No - Erythromycin (E-mycin): No - Propulsid (Cisapride)_: No Other - Tricyclic Antidepressants (nortriptyline - Pamelor; amitriptyline - Elavil): No - Buspirone (Buspar): No - Mirtazapin (Remeron): No Anti-Nausea Medications - Compazine (Prochlorperazine): Yes just ran out of RX - helps nausea - Phenergan (Promethazine): Yes prn suppositories - Benadryl (Diphenhydramine): No - Zofran (Ondansetron): Yes prn - Scopace (Scopolamine Patch): used in the past - worked well - Granisetron (Kytril or Sancuso): No - Tigan (Trimethobenzamide)_: No GLP-1 Receptor Agonists (for Diabetes or Weight loss): Yes Trulicity no longer taking Constipation Medications - Bulking Agents (Metamucil,Citrucel, Fibercon): Yes - Osmotic Laxatives (MOM, Polyethylene glycol (PEG), lactulose, sorbitol,MiraLax, Chronulal, Cephulac,Xylitol): Yes Miralax daily - Stimulant Laxatives (Ex-Lax, Senokot,Correctol, Dulcolax): Yes Dulcolax daily - Stool Softeners (Colace): Yes daily - Chloride Channel Activator (Amitiza): no - Linzess: insurance would not cover - Trulance: no - Motegrity: Yes insurance would not cover - Ibsrela: no Pain Medications - Does the patient see a apprentice painter brush for chronic pain?No - Is the patient taking narcotic pain medication for chronic abdominal pain? No - Narcotic Medications: (Tramadol, Fentanyl, codeine, hydrocodone, Hydromorphone, methadone, morphine, Oxycodone) No Drug use - History or current drug use (Marijuana, Cocaine, Heroine, etc...) Yes marijuana intermittent weekly Eating Disorders - Does the patient have a history of eating disorders Yes (more content not included)...[facility]03-12-2025 NoteHNO ID: [id number] Author: KRUPA OROSCO LPN Service: ? Author Type: LICENSED NURSE Type: Progress Notes Filed: 12/02/2024 13:26 Note Text: ELECTROGASTROGRAPY W/ TEST Operation / Procedure performed 350 cc water [facility] History of Present illness Narrative* Krupa Orosco LPN - 12/02/2024 1:22 PM EDT ELECTROGASTROGRAPY W/ TEST Operation / Procedure performed 350 cc water intake Krupa Orosco LPN [facility] History of Present illness Narrative* Gael Chase RN - 11/06/2024 11:52 AM EST Reviewed discharge instructions with patient. Patient aware of no new medications. Reviewed home medications and when next dose is due. Patient aware that she need to make a follow up appointment with Dr. Yossi Golden. Instructed to follow a carb control, low fat diet. Educational handout given on P ancreatitis. Patient denies questions. Verbalizes understanding. Copy of discharge instructions given to patient. * Kathia Hernandez RN - 11/06/2024 9:32 AM EST Nurse at patient bedside for morning shift assessment. Upon entering, patient resting in bed with eyes closed. Vitals and assessment obtained and documented. Patient currently on room air oxygen. Patient states pain is tolerable at this time. White board updated. Water refreshed. Patient states allother needs met at this time. Call light and items in reach, side rails up x2, bed in lowest position. Care ongoing. * Josephine Payton RN - 11/05/2024 6:13 PM EST PT up to couch when senior writer entered the room. PT A&O x4 and able to ambulate independently without issue. Assessment complete and charted, see flowsheet. PT reports the ABD pain is located in the middle of the RUQ and LUQ, stating it is sharp. PT given PRN morphine per order. PT family arrived after assessment, they were left comfortably to visit. Call light in reach, care on-going. * Queenie Olson RD, TRUDY - 11/05/2024 10:10 AM EST Nutrition Education Educated on pancreatitis nutrition therapy and food label guide Learners: Patient Readiness: Acceptance Method: Explanation and Handout Response: Verbalizes Understanding Contact name and number provided. QUEENIE OLSON RD, TRUDY Contact Number: [phone] * Aliyah Webster RN - 11/05/2024 6:58 AM EST Design Teacher to bedside to complete morning assessment. Upon entry to room, pt alert resting in bed, respirations even while on room air. Vitals obtained and assessment completed, see flow sheet for details. Pt denies needs from senior writer at this time. Call light in reach. Care ongoing. * Aissatou Salcedo APRN - CNP - 11/05/2024 6:38 AM EST Progress Note SUBJECTIVE: Patient seen for f/u of Intractable abdominal pain. She resting in bed no distress. Pain better. Not hungry. No BM. ROS: Constitutional: negative for fevers, and negative for chills. Respiratory: negative for shortness of breath, negative for cough, and negative for wheezing Cardiovascular: negative for chest pain, and negative for palpitations Gastrointestinal: positive for abdominal pain, positive for nausea,negative for vomiting, negative for diarrhea, and negative for constipation All other systems were reviewed with the patient and are negative unless otherwise stated in HPI OBJECTIVE: Vitals: Vitals: 11/05/24 0555 BP: Pulse: Resp: 18 Temp: SpO2: Weight - Scale: 112.5 kg (248 lb) Height: 172.7 cm (5' 8 ) Weight Wt Readings from Last 3 Encounters: 11/05/24 112.5 kg (248 lb) 10/20/24 109.8 kg (242 lb 1 oz) 09/17/24 110.7 kg (244 lb) Body mass index is 37.71 kg/m . 24HR INTAKE/OUTPUT: No intake or output data in the 24 hours ending 11/05/24 0639 Exam: GEN: Awake, alert and oriented x3. EYES: EOMI, pupils equal NECK: Supple. No lymphadenopathy. No carotid bruit CVS: regular rate and rhythm, no audible murmur PULM: CTA, no wheezes, rales or rhonchi, no acute respiratory distress ABD: Bowels sounds normal. Abdomen is soft. No distention. epigastric tenderness to palpation. EXT: no edema bilaterally . No calf tenderness. NEURO: Moves all extremities. Motor and sensory are grossly intact SKIN: No rashes. No skin lesions. Diagnostic Data: Complete Blood Count: Recent Labs 11/04/24214411/05/24 0610 WBC 13.1* 12.2* RBC 5.15* 4.88 HGB 15.1 14.1 HCT 44.6 43.0 MCV 86.6 88.1 MCH 29.3 28.9 MCHC 33.9 32.8 RDW 13.9 14.1 PLT 322 249 MPV 10.1 9.8 Last 3 Blood Glucose: Recent Labs 11/04/24214411/05/24 0610 GLUCOSE 224* 169* Comprehensive Metabolic Profile: Recent Labs 11/04/24214411/05/24 0610 NA 138 142 K 3.9 4.5 CL 102 106 CO2 24 27 BUN 18 19 CREATININE 0.8 0.8 GLUCOSE 224* 169* CALCIUM 9.7 9.1 BILITOT 0.5 0.4 ALKPHOS 96 88 AST 27 23 ALT 27 23 Latest Reference Range & Units 11/04/24 21:45 11/05/24 06:10 Lipase 13 - 60 U/L 573 (H) 179 (H) (H): Data is abnormally high Urinalysis: Lab Results Component Value Date/Time NITRU NEGATIVE 11/04/2024 10:35 PM COLORU Yellow 11/04/2024 10:35 PM PHUR 6.0 11/04/2024 10:35 PM PHUR 6.0 01/16/2024 06:35 PM WBCUA 2 TO 5 11/04/2024 10:35 PM RBCUA 0 TO 2 11/04/2024 10:35 PM MUCUS TRACE 04/09/2024 12:47 PM TRICHOMONAS NOT REPORTED 01/08/2021 10:22 PM YEAST NOT REPORTED 01/08/2021 10:22 PM BACTERIA 2+ 11/04/2024 10:35 PM LEUKOCYTESUR NEGATIVE 11/04/2024 10:35 PM UROBILINOGEN Normal 11/04/2024 10:35 PM BILIRUBINUR NEGATIVE 11/04/2024 10:35 PM GLUCOSEU 3+ 11/04/2024 10:35 PM KETUA NEGATIVE 11/04/2024 10:35 PM AMORPHOUS NOT REPORTED 01/08/2021 10:22 PM HgBA1c: Lab Results Component Value Date/Time LABA1C 8.0 09/30/2024 08:22 AM Lactic Acid: Lab Results Component Value Date/Time LACTA 2.2 10/20/2024 11:24 AM LACTA 3.3 10/20/2024 08:53 AM LACTA 1.8 08/06/2024 10:18 AM Troponin: No results for input(s): TROPONINI in the last 72 hours. CRP: No results for input(s): CRP in the last 72 hours. Radiology/Imaging: CT ABDOMEN PELVIS W IV CONTRAST Additional Contrast? None Preliminary Result 1. No acute intra-abdominal or pelvic abnormality. Specifically, no evidence of acute pancreatitis on CT. 2. Hepatic steatosis and hepatomegaly. 3. Cholecystectomy and hysterectomy. ASSESSMENT / PLAN: MEDICAL DECISION MAKING: Primary Problem(s): Intractable abdominal pain Differential diagnoses: Chronic pancreatitis, gastroparesis, acute pancreatitis, hepatitis Condition is a chronic illness with exacerbation, progression or side effects of treatment Condition is stable Treatment plan: N.p.o. Monitor labs-trend lipase (Baseline 54-238) Consult dietitian Imaging: no further imaging studies ordered today Medications: IV fluids Morphine as needed for pain Zofran as needed for nausea Medication Monitoring / High Risk Medications: Parenteral administration of controlled substance(s) Type 2 diabetes Condition is a chronic stable condition Treatment plan: POC glucose before meals and at bedtime Imaging: no further imaging studies ordered today Medications: Continue Lantus Continue glipizide Hypoglycemia protocol Nutrition status: Well developed, well nourished with no malnutrition [facility] consult initiated Hospital Prophylaxis: DVT: SCD's Stress Ulcer: PPI Disposition: Shared decision making: All test results, treatment options and disposition options were discussed with the patient today Social determinants of health that may impact management: none Code status: Full Code Disposition: Discharge plan is pending [facility] Advanced Care Planning documentation: [x] I have confirmed that the patient's Advance Care Plan is present, Code Status is documented, orsurrogate decision maker is listed in the patient's medical record [If yes , STOP HERE] [] The patient's Advance Care Plan is NOT present because: [] I confirmed today that the patient does not wish or was not able to name a surrogate decision maker or provide and advance care plan. [] Hospice care is currently being provided or has been provided within the calendar year. [] I did NOT confirm today the presence of an Advance Care Plan or surrogate decision maker documented within the patient's medical record. [DOES NOT SATISFY [facility] PERFORMANCE] Aissatou Salcedo APRN - CHIEF MINISTER , OSMAR, INSTRUCTION ASSISTANT PRINCIPAL-C Hospitalist Medicine 11/05/2024, 6:39 AM Associated attestation - Wilman Figueroa MD - 11/05/2024 8:12 AM EST Images from the original note were not included. [address], [id number] Attestation Patient: Gael Ruby Date of Admission: 11/04/2024 9:30 PM Hospital Day # 0 Date of Evaluation: 11/05/2024 I personally evaluated and examined the patient [id number] in conjunction with the PA/INSTRUCTION ASSISTANT PRINCIPAL and agree with the management and dispostition of the patient. Please see the PA/INSTRUCTION ASSISTANT PRINCIPAL's note for full details.My [place] findings are: SUBJECTIVE: Patient seen for follow up of Intractable abdominal pain. Patient seen and examined at the bed side, no new acute events overnight and, no new complains noted. VSS, afebrile. Her pain improved compared to prior but persists. She is not hungry at this time. Notes from nursing staff and Consults hadbeen reviewed, and the overnight progress had been checked with the nursing staff as well. OBJECTIVE: Vitals: Temp: 96.8 F (36 C) BP: 112/72 Respirations: 18 Pulse: 68 SpO2: 94 % Weight Wt Readings from Last 3 Encounters: 11/05/24 112.5 kg (248 lb) 01/28/25 109.8 kg (242 lb 1 oz) 09/17/24 110.7 kg (244 lb) Body mass index is 37.71 kg/m . 24HR INTAKE/OUTPUT: Intake/Output Summary (Last 24 hours) at 11/05/2024 0811 Last data filed at 11/05/2024 0704 Gross per 24 hour Intake 416 ml Output 100 ml Net 316 ml Exam: GEN: Awake, alert and oriented x3. EYES: EOMI, pupils equal NECK: Supple. No lymphadenopathy. No carotid bruit CVS: regular rate and rhythm, no audible murmur PULM: CTA, no wheezes, rales or rhonchi, no acute respiratory distress ABD: Bowels sounds normal. Abdomen is soft. No distention. epigastric tenderness to palpation (minimal) EXT: no edema bilaterally . No calf tenderness. NEURO: Moves all extremities. Motor and sensory are grossly intact SKIN: No rashes. No skin lesions. DATA: Complete Blood Count: Recent Labs 11/04/24214411/05/24 0610 WBC 13.1* 12.2* RBC 5.15* 4.88 HGB 15.1 14.1 HCT 44.6 43.0 MCV 86.6 88.1 RDW 13.9 14.1 PLT 322 249 Recent Labs 11/04/24 21411/05/24 0610 NEUTROABS 7.45 7.13 LYMPHOPCT 36 33 LYMPHSABS 4.70* 4.03* MONOPCT 5 6 BASOPCT 1 0 IMMGRAN 0 0 CMP: Lab Results Component Value Date GLUCOSE 169 (H) 11/05/2024 BUN 19 11/05/2024 CREATININE 0.8 11/05/2024 NA 142 11/05/2024 K 4.5 11/05/2024 CALCIUM 9.1 11/05/2024 CL 106 11/05/2024 CO2 27 11/05/2024 BILITOT 0.4 11/05/2024 ALKPHOS 88 11/05/2024 ALT 23 11/05/2024 AST 23 11/05/2024 UA: Lab Results Component Value Date COLORU Yellow 11/04/2024 WBCUA 2 TO 5 11/04/2024 RBCUA 0 TO 2 11/04/2024 LEUKOCYTESUR NEGATIVE 11/04/2024 GLUCOSEU 3+ (A) 11/04/2024 KETUA NEGATIVE 11/04/2024 PROTEINU NEGATIVE 11/04/2024 HGBUR NEGATIVE 11/04/2024 CASTUA 07/30/2023 None Reference range defined for non-centrifuged specimen. BACTERIA 2+ (A) 11/04/2024 YEAST NOT REPORTED 01/08/2021 Lactic Acid: Lab Results Component Value Date/Time LACTA 2.2 10/20/2024 11:24 AM LACTA 3.3 10/20/2024 08:53 AM LACTA 1.8 08/06/2024 10:18 AM High Sensitivity Troponin: No results for input(s): TROPHS in the last 72 hours. Radiology/Imaging: CT ABDOMEN PELVIS W IV CONTRAST Additional Contrast? None Preliminary Result 1. No acute intra-abdominal or pelvic abnormality. Specifically, no evidence of acute pancreatitis on CT. 2. Hepatic steatosis and hepatomegaly. 3. Cholecystectomy and hysterectomy. ASSESSMENT: Principal Problem: Intractable abdominal pain Active Problems: Type 2 diabetes mellitus (HCC) Gastroparesis Chronic pancreatitis (HCC) Resolved Problems: * No resolved hospital problems. * PLAN: I agree with the plan as outlined in the INSTRUCTION ASSISTANT PRINCIPAL/PA's note Disposition: Discharge plan is pending Please note that this chart was generated using voice recognition [employer] dictation software. Although every effort was made to ensure the accuracy of this automated mechanical commissioning engineer, some errors in mechanical commissioning engineer may have occurred. Wilman Figueroa MD 11/05/2024 8:11 AM * Savanah Gonzalez RCP - 11/05/2024 5:48 AM EST RESPIRATORY ASSESSMENT PROTOCOL Patient Name: Gael Ruby Room#: 0320/0320-01 : 1995 Admitting diagnosis: Intractable abdominal pain [R10.9] Acute pancreatitis, unspecified complication status, unspecified pancreatitis type [K85.90] Medical History: Past Medical History: Diagnosis Date ADD (attention deficit disorder) ADHD (attention deficit hyperactivity disorder) Anxiety Asthma Back pain Herniated discs L4-L5 Bladder disorder BPS (bladder pain syndrome) Depression Gastroparesis 07/07/2024 Gestational diabetes mellitus x2 Herpes simplex virus (HSV) infection gonarrhea and trich in past, not with this History of miscarriage History of PCOS MRSA (methicillin resistant staph aureus) culture positive December 2015 Nasal Swab during 25 wks-pt had MRSA in past Ovarian cyst PTSD (post-traumatic stress disorder) Type 2 diabetes mellitus (HCC) 2019 PATIENT ASSESSMENT LABORATORY DATA Hematology: Lab Results Component Value Date/Time WBC 13.1 11/04/2024 09:45 PM RBC 5.15 11/04/2024 09:45 PM HGB 15.1 11/04/2024 09:45 PM HCT 44.6 11/04/2024 09:45 PM PLT 322 11/04/2024 09:45 PM Chemistry: No results found for: PHART , QPI7IBC , PO2ART , [id number] , CXA0JCL , PBEA , NBEA VITALS Pulse: 72 Respirations: 16 BP: 132/74 SpO2: 98 % O2 Device: None (Room air) Temp: 96.8 F (36 C) SKIN COLOR [x] Normal [] Pale [] Dusky [] Cyanotic RESPIRATORY PATTERN [x] Normal [] Dyspnea [] Kris-Jacobo [] Kussmaul [] Biots AMBULATORY [x] Yes [] No [] With Assistance PEAK FLOW Predicted: Personal Best: Patient Acuity 0 1 2 3 4 Score Level of Consciousness (LOC) [x] Alert & Oriented or Pt normal LOC [] Confused;follows directions [] Confused & uncooper-ative [] Obtunded [] Comatose 0 Respiratory Rate (RR) [x] Reg. rate & pattern. 12 - 20 bpm [] Increased RR. Greater than 20 bpm [] SOB w/ exertion or RR greater than 24 bpm [] Access- ory muscle use at rest. Abn. resp. [] SOB at rest. 0 Bilateral Breath Sounds (BBS) [x] Clear [] Diminish-ed bases [] Diminish-ed t/o, or rales [] Sporadic, scattered wheezes or rhonchi [] Persistentwheezes and, or absent BBS 0 Cough [x] Strong, effective, & non-prod. [] Effective & prod. Less than 25 ml (2 TBSP) over past 24 hrs [] Ineffective & non-prod to less than 25 ML over past 24 hrs [] Ineffective and, or greater than 25 ml sputum prod. past 24 hrs. [] Nonspon- taneous; Requires suctioning 0 Pulmonary History (PULM HX) [] No smoking and no chronic pulmonary history [] Former smoker. Quit over 12 mos. ago [] Current smoker or quit w/ in 12 mos [x] Pulm. History and, or 20 pk/yr smoking hx [] Admitted w/ acute pulm. dx and, or has been admitted w/ pulm. dx 2 or more times over past 12 mos 3 Surgical History this Admit (SURG HX) [x] No surgery [] General surgery [] Lower abdominal [] Thoracic or upper abdominal [] Thoracic w/ pulm. disease 0 Chest X-Ray (CXR)/CT Scan [x] Clear or not applicable [] Not available [] Atelectasis or pleural effusions [] Localized infiltrate or pulm. edema [] Con-solidated Infiltrates, bilateral, or in more than 1 lobe 0 TOTAL ACUITY: 3 CARE PLAN If Acuity Level is 2, 3, or 4 in any of the following: [] BILATERAL BREATH SOUNDS (BBS) [x] PULMONARY HISTORY (PULM HX) [] Respiratory Rate (RR) Goal: Improve respiratory functions in patients with airway disease and decrease WOB [x] AEROSOL PROTOCOL Total Acuity: 14-28 [] Secondary Assessment in 24 hrs Total Acuity: 9-13 [] Secondary Assessment in 24 hrs Total Acuity: 4-8 [] Secondary Assessment in 24 hrs Total Acuity: 0-3 [x] Secondary Assessment in 48 hrs HHN AEROSOL THERAPY with [physician-ordered bronchodilator(s)] q 4 & Albuterol PRN q2 hrs. Breath-Actuated Neb if BBS Acuity = 4, and pt. can use MP. Notify physician if condition deteriorates. HHN AEROSOL THERAPY with [physician-ordered bronchodilator(s)] QID and Albuterol PRN q4 hrs. Breath-Actuated Neb if BBS Acuity = 4, and pt. can use MP. Notify physician if condition deteriorates. MDI THERAPY with 2 actuations of [physician-ordered bronchodilator(s)] via spacer TID Albuterol and PRN q4 hrs. If unable to utilize MDI: HHN [physician-ordered bronchodilator(s)] TID and Albuterol PRN q4 hrs. Notify physician if condition deteriorates. MDI THERAPY with [physician-ordered bronchodilator(s)] via spacer TID PRN. If unable to utilize MDI: HHN [physician-ordered bronchodilator(s)] TID PRN. Notify physician if condition deteriorates. If Acuity Level is 2, 3, or 4 in any of the following: [] COUGH [] SURGICAL HISTORY (SURG HX) [] CHEST XRAY (CXR) Goal: Improvement in sputum mobilization in patients with ineffective airway clearance. Reverse atelectasis. [] Bronchopulmonary Hygiene Protocol Total Acuity: 14-28 [] Secondary Assessment in 24 hrs Total Acuity: 9-13 [] Secondary Assessment in 24 hrs Total Acuity: 4-8 [] Secondary Assessment in 24 hrs Total Acuity: 0-3 [] Secondary Assessment in 48 hrs METANEB QID with [physician-ordered bronchodilator(s)] if CXR Acuity = 4; otherwise: PD&P, Oscillatory Therapy, or Vest QID & PRN AND PEP QID & PRN NT Sxn PRN for ineffective cough METANEB QID with [physician-ordered bronchodilator(s)] if CXR Acuity = 4; otherwise: PD&P, Oscillatory Therapy or Vest QID & PRN AND PEP QID & PRN NT Sxn PRN for ineffective cough PD&P, Oscillatory Therapy, or Vest TID & PRN AND PEP TID & PRN Instruct patient to self-perform IS q1hr WA If Acuity Level is 2 or above in the following: [] PULMONARY HISTORY (PULM HX) Goal: Assist patient in quitting smoking to slow or stop the progression of lung disease. [] Smoking Cessation Protocol SMOKING CESSATION EDUCATION provided according to policy RT_201: (dedra with an X) ____Yes ____ No ____ NA Smoking Cessation Booklet given: ____Yes ____No ____Patient Refused * Anne Hargrove RN - 11/05/2024 2:37 AM EST Patient admitted to room [facility] at this time. Patient is alert and oriented x4. Patient vitals and assessment completed at this time as charted. Patient navigator completed along with medication list. Patient rates pain 5/10 to her abdomen however she states no needs. Call light is in reach, planof care is ongoing. [facility] Discharge [facility]* Discharge Instr - Activity* Gael Chase RN - 11/06/2024 11:39 AM EST As tolerated * Discharge Instr - Diet* Gael Chase RN - 11/06/2024 11:42 AM EST Good nutrition is important when healing from an illness, injury, or surgery. Follow any nutrition recommendations given to you during your hospital stay. If you were given an oral nutrition supplement while in the hospital, continue to take this supplement at home. You can take it with meals, in-between meals, and/or before bedtime. These supplements can be purchased at most local grocery stores, pharmacies, and [employer]stores. If you have any questions about your diet or nutrition, call the hospital and ask for the dietitian. Carb Control, low fat * Attachments The following attachments cannot be sent through Care Everywhere. * Pancreatitis: Acute: General Info ([place]i) [facility] History of Present illness Narrative* Gael Chase RN - 10/21/2024 11:34 AM EST Reviewed discharge instructions with patient. Patient aware of need to fiber picker new prescription. Reviewed new medication and side effects to monitor for. Reviewed home medications and when next dose is due. Patient aware of date/time of follow up appointment. Instructed to follow a clear liquid diet and slowly advance as tolerated to a low fat, carb control diet. Educational handout given on Pancreatitis and Low fat diet. Questions answered. Verbalizes understanding. Copy of discharge instructions given to patient. * Queenie Olson RD, LD - 10/21/2024 10:22 AM EST Nutrition Education Educated on pancreatitis nutrition therapy, food label, provided estimated total fat, saturated fatguidelines Learners: Patient Readiness: Acceptance Method: Explanation and Handout Response: Verbalizes Understanding Contact name and number provided. QUEENIE OLSON RD, LD Contact Number: [phone] * Queenie Olson RD, LD - 10/21/2024 9:38 AM EST Comprehensive Nutrition Assessment Type and Reason for Visit: Initial, Positive nutrition screen (MST 2) Nutrition Recommendations/Plan: Continue current diet. Continue current ONS. Progress diet to low fat, CC 4 carbs per meal diet as medically appropriate. Malnutrition Assessment: Malnutrition Status: At risk for malnutrition (10/21/24 0938) Context: Acute Illness Findings of the 6 clinical characteristics of malnutrition: Energy Intake: Mild decrease in energy intake (2-3 days) Weight Loss: Mild weight loss (5.5% x 6 months) Body Fat Loss: No body fat loss Muscle Mass Loss: No muscle mass loss Fluid Accumulation: No fluid accumulation [employer] Strength: Not Performed Nutrition Assessment: Inadequate oral intakes r/t altered GI function aeb N/V/abdominal pain, PO 26- 50%, poor PO x 2-3 days, just was not hungry. Altered nutrition related labs r/t endocrine dysfunction aeb A1c 8.0 (Pt does not count carbs, states doctor just wants her to eat due to issues with Hx gastroparesis follows a low fiber, low fat diet. Lipase 90 (was 238). Pt admitted with acute pancreatitis. Pt provided pancreatitis diet education materials and provided total fat/saturated fat guidelines. Nutrition Related Findings: active bowel sounds, no edema Wound Type: None Current Nutrition Intake & Therapies: Average Meal Intake: 26-50% Average Supplements Intake: Unable to assess (no supplement acceptance data) ADULT ORAL NUTRITION SUPPLEMENT; Breakfast, Lunch, Dinner; Clear Liquid Oral Supplement ADULT DIET; Full Liquid Anthropometric Measures: Height: 172.7 cm (5' 8 ) [place] Body Weight (IBW): 140 lbs (64 kg) Admission Body Weight: 108.9 kg (240 lb) Current Body Weight: 109.8 kg (242 lb 1 oz), 172.9 % IBW. Weight Source: Bed scale Current BMI (kg/m2): 36.8 Usual Body Weight: 117.9 kg (260 lb) (01/16/24) % Weight Change (Calculated): -6.9 Weight Adjustment For: No Adjustment BMI Categories: Obese Class 2 (BMI 35.0 -39.9) Estimated Daily Nutrient Needs: Energy Requirements Based On: Kcal/kg Weight Used for Energy Requirements: Current Energy (kcal/day): 6051-5174 (15-18/kg) Weight Used for Protein Requirements: [place] Protein (g/day): 77-90g (1.2-1.4g/kg) Method Used for Fluid Requirements: 1 ml/kcal Fluid (ml/day): 1,900 ml Hematology: Recent Labs 10/20/24 0810/21/24 0600 WBC 12.8* 7.9 HGB 15.2* 14.1 HCT 44.8 43.2 Chemistry: Recent Labs 10/20/24 0810/21/24 0600 NA 140 140 K 4.4 4.2 CL 102 106 CO2 22 25 GLUCOSE 208* 150* BUN 10 8 CREATININE 0.8 0.7 CALCIUM 9.6 8.6 Recent Labs 10/20/24 0810/21/24 0600 AST 50* 44* ALT 36* 40* ALKPHOS 100 86 BILITOT 0.5 0.5 LIPASE 238* 90* No results found for: VITD25 Lab Results Component Value Date/Time LABA1C 8.0 09/30/2024 08:22 AM Recent Labs 10/20/24 1634 10/20/24 2000 10/21/24 0701 POCGLU 117* 137* 156* Lab Results Component Value Date/Time TRIG 307 09/30/2024 08:22 AM HDL 40 09/30/2024 08:22 AM Nutrition Diagnosis: Inadequate oral intake related to altered GI function as evidenced by intake 26- 50%, nausea, vomiting, other (abdominal pain) Altered nutrition-related lab values related to endocrine dysfunction as evidenced by lab values Nutrition Interventions: Food and/or Nutrient Delivery: Continue Current Diet, Continue Oral Nutrition Supplement Nutrition Education/Counseling: Education/Counseling needed Coordination of Nutrition Care: Continue to monitor while inpatient Plan of Care discussed with: Patient Goals: Goals: Meet at least 75% of estimated needs Type of Goal: New goal Previous Goal Met: New Goal Nutrition Monitoring and Evaluation: Behavioral-Environmental Outcomes: None Identified Food/Nutrient Intake Outcomes: Diet Advancement/Tolerance, Supplement Intake, Food and Nutrient Intake Physical Signs/Symptoms Outcomes: Biochemical Data, Weight, Nausea or Vomiting, GI Status Discharge Planning: Too soon to determine QUEENIE OLSON RD, LD Contact: [phone] * Rimma Montesinos RN - 10/21/2024 8:50 AM EST Pt reports mild nausea after eating breakfast, she was changed to a full liquid diet. Encouraged toambulate. * Rimma Montesinos RN - 10/21/2024 6:55 AM EST Vitals and assessment completed at this time as charted. Pt alert and oriented x4. Reports pain 4/10 in RUQ LUQ described as sharp,she states she is comfortable. Denies nausea at this time. Pt deniesany other concerns. Encouraged to ambulate today. States she is tolerating clear liquid diet. * Keturah Liz RCP - 10/20/2024 6:52 PM EST RESPIRATORY ASSESSMENT PROTOCOL Patient Name: Gael Ruby Room#: [id number]/0326-01 : 1995 Admitting diagnosis: Acute pancreatitis without infection or necrosis [K85.90] Acute pancreatitis, unspecified complication status, unspecified pancreatitis type [K85.90] Medical History: Past Medical History: Diagnosis Date ADD (attention deficit disorder) ADHD (attention deficit hyperactivity disorder) Anxiety Asthma Back pain Herniated discs L4-L5 Bladder disorder BPS (bladder pain syndrome) Depression Gastroparesis 07/07/2024 Gestational diabetes mellitus x2 Herpes simplex virus (HSV) infection gonarrhea and trich in past, not with this History of miscarriage History of PCOS MRSA (methicillin resistant staph aureus) culture positive December 2015 Nasal Swab during 25 wks-pt had MRSA in past Ovarian cyst PTSD (post-traumatic stress disorder) Type 2 diabetes mellitus (HCC) 2019 PATIENT ASSESSMENT LABORATORY DATA Hematology: Lab Results Component Value Date/Time WBC 12.8 10/20/2024 08:05 AM RBC 5.23 10/20/2024 08:05 AM HGB 15.2 10/20/2024 08:05 AM HCT 44.8 10/20/2024 08:05 AM PLT 360 10/20/2024 08:05 AM Chemistry: No results found for: PHART , CPR8PIG , PO2ART , D3DLVUTV , KVX7LWM , PBEA , NBEA VITALS Pulse: 68 Respirations: 16 BP: 129/76 SpO2: 94 % O2 Device: None (Room air) Temp: 96.9 F (36.1 C) SKIN COLOR [x] Normal [] Pale [] Dusky [] Cyanotic RESPIRATORY PATTERN [x] Normal [] Dyspnea [] Kris-Jacobo [] Kussmaul [] Biots AMBULATORY [] Yes [] No [x] With Assistance Patient Acuity 0 1 2 3 4 Score Level of Consciousness (LOC) [x] Alert & Oriented or Pt normal LOC [] Confused;follows directions [] Confused & uncooper-ative [] Obtunded [] Comatose 0 Respiratory Rate (RR) [x] Reg. rate & pattern. 12 - 20 bpm [] Increased RR. Greater than 20 bpm [] SOB w/ exertion or RR greater than 24 bpm [] Access- ory muscle use at rest. Abn. resp. [] SOB at rest. 0 Bilateral Breath Sounds (BBS) [x] Clear [] Diminish-ed bases [] Diminish-ed t/o, or rales [] Sporadic, scattered wheezes or rhonchi [] Persistentwheezes and, or absent BBS 0 Cough [x] Strong, effective, & non-prod. [] Effective & prod. Less than 25 ml (2 TBSP) over past 24 hrs [] Ineffective & non-prod to less than 25 ML over past 24 hrs [] Ineffective and, or greater than 25 ml sputum prod. past 24 hrs. [] Nonspon- taneous; Requires suctioning 0 Pulmonary History (PULM HX) [] No smoking and no chronic pulmonary history [] Former smoker. Quit over 12 mos. ago [] Current smoker or quit w/ in 12 mos [x] Pulm. History and, or 20 pk/yr smoking hx [] Admitted w/ acute pulm. dx and, or has been admitted w/ pulm. dx 2 or more times over past 12 mos 3 Surgical History this Admit (SURG HX) [x] No surgery [] General surgery [] Lower abdominal [] Thoracic or upper abdominal [] Thoracic w/ pulm. disease 0 Chest X-Ray (CXR)/CT Scan [x] Clear or not applicable [] Not available [] Atelectasis or pleural effusions [] Localized infiltrate or pulm. edema [] Con-solidated Infiltrates, bilateral, or in more than 1 lobe 0 TOTAL ACUITY: 3 CARE PLAN If Acuity Level is 2, 3, or 4 in any of the following: [] BILATERAL BREATH SOUNDS (BBS) [x] PULMONARY HISTORY (PULM HX) [] Respiratory Rate (RR) Goal: Improve respiratory functions in patients with airway disease and decrease WOB [x] AEROSOL PROTOCOL Total Acuity: 14-28 [] Secondary Assessment in 24 hrs Total Acuity: 9-13 [] Secondary Assessment in 24 hrs Total Acuity: 4-8 [] Secondary Assessment in 24 hrs Total Acuity: 0-3 [x] Secondary Assessment in 48 hrs HHN AEROSOL THERAPY with [physician-ordered bronchodilator(s)] q 4 & Albuterol PRN q2 hrs. Breath-Actuated Neb if BBS Acuity = 4, and pt. can use MP. Notify physician if condition deteriorates. HHN AEROSOL THERAPY with [physician-ordered bronchodilator(s)] QID and Albuterol PRN q4 hrs. Breath-Actuated Neb if BBS Acuity = 4, and pt. can use MP. Notify physician if condition deteriorates. MDI THERAPY with 2 actuations of [physician-ordered bronchodilator(s)] via spacer TID Albuterol and PRN q4 hrs. If unable to utilize MDI: HHN [physician-ordered bronchodilator(s)] TID and Albuterol PRN q4 hrs. Notify physician if condition deteriorates. MDI THERAPY with [physician-ordered bronchodilator(s)] via spacer TID PRN. If unable to utilize MDI: HHN [physician-ordered bronchodilator(s)] TID PRN. Notify physician if condition deteriorates. If Acuity Level is 2, 3, or 4 in any of the following: [] COUGH [] SURGICAL HISTORY (SURG HX) [] CHEST XRAY (CXR) Goal: Improvement in sputum mobilization in patients with ineffective airway clearance. Reverse atelectasis. [] Bronchopulmonary Hygiene Protocol Total Acuity: 14-28 [] Secondary Assessment in 24 hrs Total Acuity: 9-13 [] Secondary Assessment in 24 hrs Total Acuity: 4-8 [] Secondary Assessment in 24 hrs Total Acuity: 0-3 [] Secondary Assessment in 48 hrs METANEB QID with [physician-ordered bronchodilator(s)] if CXR Acuity = 4; otherwise: PD&P, Oscillatory Therapy, or Vest QID & PRN AND PEP QID & PRN NT Sxn PRN for ineffective cough METANEB QID with [physician-ordered bronchodilator(s)] if CXR Acuity = 4; otherwise: PD&P, Oscillatory Therapy or Vest QID & PRN AND PEP QID & PRN NT Sxn PRN for ineffective cough PD&P, Oscillatory Therapy, or Vest TID & PRN AND PEP TID & PRN Instruct patient to self-perform IS q1hr WA If Acuity Level is 2 or above in the following: [] PULMONARY HISTORY (PULM HX) Goal: Assist patient in quitting smoking to slow or stop the progression of lung disease. [] Smoking Cessation Protocol SMOKING CESSATION EDUCATION provided according to policy RT_201: (dedra with an X) ____Yes ____ No ____ NA Smoking Cessation Booklet given: ____Yes ____No ____Patient Refused * Michaelle Quintana RN - 10/20/2024 3:30 PM EST Patient admitted to the floor at this time. Patient located in room 326. Report received from Juvencio JUDGE at the bedside. Patient transferred to the bed at this time independently. Vital signs, weight, height, and head to toe assessment completed at this time, see flowsheets for more details. Patient complains of pain at this time, but unable to receive pain medication at this time, as she just had some IV pain medication prior to being transferred from ER to [facility], see MAR. Admission navigator completed at this time. Patient is A&O x4. Patient oriented to the call light system at this time. White board completed. Call light and bedside table within reach. Bed wheels locked. Bed in lowest position. [facility]charge [facility]* Discharge Instructions* Gael Chase RN - 10/21/2024 11:17 AM EST * Discharge Instr - Activity* Gael Chase RN - 10/21/2024 11:15 AM EST As tolerated * Discharge Instr - Diet* Gael Chase RN - 10/21/2024 11:15 AM EST Good nutrition is important when healing from an illness, injury, or surgery. Follow any nutrition recommendations given to you during your hospital stay. If you were given an oral nutrition supplement while in the hospital, continue to take this supplement at home. You can take it with meals, in-between meals, and/or before bedtime. These supplements can be purchased at most local grocery stores, pharmacies, and [employer]stores. If you have any questions about your diet or nutrition, call the hospital and ask for the dietitian. Clear liquids, slowly advance as tolerated to low fat, carb control. * Attachments The following attachments cannot be sent through Care Everywhere. * Pancreatitis: Acute: General Info ([place]i) * Low-Fat: Diet: General Info ([place]) documented in this [facility]Bon [facility] Discharge instructions Patient Education 10/15/2024 18:53:22 Abdominal Pain, Adult Abdominal Pain, Adult Pain in the abdomen (abdominal pain) can be caused by many things. In most cases, it gets better with no treatment or by being treated at home. But in some cases, it can be serious. Your health care provider will ask questions about your medical history and do a physical exam to try to figure out what is causing your pain. Follow these instructions at home: Medicines Take ycao-osx-kvwypke and prescription medicines only as told by your provider. Do not take medicines that help you poop (laxatives) unless told by your provider. General instructions Watch your condition for any changes. Drink enough fluid to keep your pee (urine) pale yellow. Contact a health care provider if: Your pain changes, gets worse, or lasts longer than expected. You have severe cramping or bloating in your abdomen, or you vomit. Your pain gets worse with meals, after eating, or with certain foods. You are constipated or have diarrhea for more than 2 3 days. You are not hungry, or you lose weight without trying. You have signs of dehydration. These may include: ?Dark pee, very little pee, or no pee. ?Cracked lips or dry mouth. ?Sleepiness or weakness. You have pain when you pee (urinate) or poop. Your abdominal pain wakes you up at night. You have blood in your pee. You have a fever. Get help right away if: You cannot stop vomiting. Your pain is only in one part of the abdomen. Pain on the right side could be caused by appendicitis. You have bloody or black poop (stool), or poop that looks like tar. You have trouble breathing. You have chest pain. These symptoms may be an emergency. Get help right away. Call 911. Do not wait to see if the symptoms will go away. Do not drive yourself to the hospital. This information is not intended to replace advice given to you by your health care provider. Make sure you discuss any questions you have with your health care provider. Document Revised: 06/26/2023 Document Reviewed: 06/26/2023 [employer] Patient Education 2023 [employer]. Follow Up Care 10/15/2024 17:58:05 With:YOSSI GOLDEN Address: [address] [place] [address] Business (1) When:10/18/2024 18:52:50 Comments:Call the office of your primary care doctor to arrange for follow-up within the above-stated timeframe. Follow-up with your primary care doctor about this ED visit. You should review your labs, imaging, and diagnoses from this ED visit with your primary care physician. There are occasionally non-emergent findings that require additional follow-up after your ED visit. If you were prescribed medications you should discuss possible side-effects and drug interactions with your pharmacist. Call 911 or go to the nearest Emergency Department if you develop any new or worsening symptoms.Seek immediate medical attention if you develop:worsening abdominal pain, new or worsening nausea, new or worsening vomiting, new or worsening diarrhea, chest pain, shortness of breath, pain with urination, problems urinating, fever, chills, weakness, or any new or worsening symptoms. [facility] 01-23-2025 NoteED Patient Education Note Gastroenterology Abdominal Pain, Adult Pain in the abdomen (abdominal pain) can be caused by many things. In most cases, it gets better with no treatment or by being treated at home. But in some cases, it can be serious. Your health care provider will ask questions about your medical history and do a physical exam to try to figure out what is causing your pain. Follow these instructions at home: Medicines ??? Take wjlb-het-jziodwv and prescription medicines only as told by your provider. ??? Do not take medicines that help you poop (laxatives) unless told by your provider. General instructions ??? Watch your condition for any changes. ??? Drink enough fluid to keep your pee (urine) pale yellow. Contact a health care provider if: ??? Your pain changes, gets worse, or lasts longer than expected. ??? You have severe cramping or bloating in your abdomen, or you vomit. ??? Your pain gets worse with meals, after eating, or with certain foods. ??? You are constipated or have diarrhea for more than 2?3 days. ??? You are not hungry, or you lose weight without trying. ??? You have signs of dehydration. These may include: ? Dark pee, very little pee, or no pee. ? Cracked lips or dry mouth. ? Sleepiness or weakness. ??? You have pain when you pee (urinate) or poop. ??? Your abdominal pain wakes you up at night. ??? You have blood in your pee. ??? You have a fever. Get help right away if: ??? You cannot stop vomiting. ??? Your pain is only in one part of the abdomen. Pain on the right side could be caused by appendicitis. ??? You have bloody or black poop (stool), or poop that looks like tar. ??? You have trouble breathing. ??? You have chest pain. These symptoms may be an emergency. Get help right away. Call 911. ??? Do not wait to see if the symptoms will go away. ??? Do not drive yourself to the hospital. This information is not intended to replace advice given to you by your health care provider. Make sure you discuss any questions you have with your health care provider. Document Revised: 06/26/2023 Document Reviewed: 06/26/2023 [employer] Patient Education ? 2023 [employer].[facility] 10-15-2024 Evaluation + Plan noteExtracted from: Title:ED Note Author:Cameron Conklin DO Date: Abdominal pain (R10.9: Unspe cified abdominal pain) Orders: diphenhydrAMINE, 12.5 mg = 0.25 mL, Injection, IV Push, Once, Stop date 10/15/24 18:17:00 EST, STAT, Start date 10/15/24 18:17:00 EST, 10/15/24 18:17:00 EST HYDROmorphone, 0.5 mg = 0.5 mL, Injection, IV Push, Once, Stop date 10/15/24 18:52:00 EST, STAT, Start date 10/15/24 18:52:00 EST, 10/15/24 18:52:00 EST HYDROmorphone, 0.5 mg = 0.5 mL, Injection, IV Push, Once, Stop date 10/15/24 18:17:00 EST, STAT, Start date 10/15/24 18:17:00 EST, 10/15/24 18:17:00 EST promethazine 12.5 mg + Sodium Chloride 0.9% intravenous solution 50 mL, Injection, IV Piggyback, Once, Stop date 10/15/24 18:16:00 EST, STAT, Start date 10/15/24 18:16:00 EST, 151.5 mL/hr, Infuse over 20 minute(s) Future Scheduled Tests Radiology* NM Gastric Emptying Study 05/25/24 [facility] [place] 01-17-2025 Hospital Discharge instructions Patient Education 10/08/2024 22:06:06 Gastroparesis Gastroparesis Gastroparesis is a condition in which food takes longer than normal to empty from the stomach. Thiscondition is also known as delayed gastric emptying. It is usually a long-term (chronic) condition. There is no cure, but there are treatments and things that you can do at home to help relieve symptoms. Treating the underlying condition that causes gastroparesis can also help relieve symptoms. What are the causes? In many cases, the cause of this condition is not known. Possible causes include: A hormone (endocrine) disorder, such as hypothyroidism or diabetes. A nervous system disease, such as Parkinson's disease or multiple sclerosis. Cancer, infection, or surgery that affects the stomach or vagus nerve. The vagus nerve runs from your chest, through your neck, and to the lower part of your brain. A connective tissue disorder, such as scleroderma. Certain medicines. What increases the risk? You are more likely to develop this condition if: You have certain disorders or diseases. These may include: ?An endocrine disorder. ?An eating disorder. ?Amyloidosis. ?Scleroderma. ?Parkinson's disease. ?Multiple sclerosis. ?Cancer or infection of the stomach or the vagus nerve. You have had surgery on your stomach or vagus nerve. You take certain medicines. You are female. What are the signs or symptoms? Symptoms of this condition include: Feeling full after eating very little or a loss of appetite. Nausea, vomiting, or heartburn. Bloating of your abdomen. Inconsistent blood sugar (glucose) levels on blood tests. Unexplained weight loss. Acid from the stomach coming up into the esophagus (gastroesophageal reflux). Sudden tightening (spasm) of the stomach, which can be painful. Symptoms may come and go. Some people may not notice any symptoms. How is this diagnosed? This condition is diagnosed with tests, such as: Tests that check how long it takes food to move through the stomach and intestines. These tests include: ?Upper gastrointestinal (GI) series. For this test, you drink a liquid that shows up well on X-rays, and then X-rays are taken of your intestines. ?Gastric emptying scintigraphy. For this test, you eat food that contains a small amount of radioactive material, and then scans are taken. ?Wireless capsule GI monitoring system. For this test, you swallow a pill (capsule) that records information about how foods and fluid move through your stomach. Gastric manometry. For this test, a tube is passed down your throat and into your stomach to measure electrical and muscular activity. Endoscopy. For this test, a long, thin tube with a camera and light on the end is passed down your throat and into your stomach to check for problems in your stomach lining. Ultrasound. This test uses sound waves to create images of the inside of your body. This can help rule out gallbladder disease or pancreatitis as a cause of your symptoms. How is this treated? There is no cure for this condition, but treatment and home care may relieve symptoms. Treatment may include: Treating the underlying cause. Managing your symptoms by making changes to your diet and exercise habits. Taking medicines to control nausea and vomiting and to stimulate stomach muscles. Getting food through a feeding tube in the hospital. This may be done in severe cases. Having surgery to insert a device called a gastric electrical stimulator into your body. This device helps improve stomach emptying and control nausea and vomiting. Follow these instructions at home: Take qmao-wgl-ujddkac and prescription medicines only as told by your health care provider. Follow instructions from your health care provider about eating or drinking restrictions. Your health care provider may recommend that you: ?Eat smaller meals more often. ?Eat low-fat foods. ?Eat low-fiber forms of high-fiber foods. For example, eat cooked vegetables instead of raw vegetables. ?Have only liquid foods instead of solid foods. Liquid foods are easier to digest. Drink enough fluid to keep your urine pale yellow. Exercise as often as told by your health care provider. Keep all follow-up visits. This is important. Contact a health care provider if you: Notice that your symptoms do not improve with treatment. Have new symptoms. Get help right away if you: Have severe pain in your abdomen that does not improve with treatment. Have nausea that is severe or does not go away. Vomit every time you drink fluids. Summary Gastroparesis is a long-term (chronic) condition in which food takes longer than normal to empty from the stomach. Symptoms include nausea, vomiting, heartburn, bloating of your abdomen, and loss of appetite. Eating smaller portions, low-fat foods, and low-fiber forms of high-fiber foods may help you manageyour symptoms. Get help right away if you have severe pain in your abdomen. This information is not intended to replace advice given to you by your health care provider. Make sure you discuss any questions you have with your health care provider. Document Revised: 01/16/2021 Document Reviewed: 01/16/2021 [employer] Patient Education 2023 [employer]. Follow Up Care 10/08/2024 17:46:51 With:Aly Beverly Address: [address] [facility], [facility] [address] [address] [phone] Business (1) When:10/11/2024 19:31:50 With:YOSSI GOLDEN Address: [address] [place] [address] Business (1) When:Within 3 Day(s) [facility] [place] 01-16-2025 NoteED Patient Education Note Gastroenterology Gastroparesis Gastroparesis is a condition in which food takes longer than normal to empty from the stomach. Thiscondition is also known as delayed gastric emptying. It is usually a long-term (chronic) condition. There is no cure, but there are treatments and things that you can do at home to help relieve symptoms. Treating the underlying condition that causes gastroparesis can also help relieve symptoms. What are the causes? In many cases, the cause of this condition is not known. Possible causes include: ??? A hormone (endocrine) disorder, such as hypothyroidism or diabetes. ??? A nervous system disease, such as Parkinson's disease or multiple sclerosis. ??? Cancer, infection, or surgery that affects the stomach or vagus nerve. The vagus nerve runs from your chest, through your neck, and to the lower part of your brain. ??? A connective tissue disorder, such as scleroderma. ??? Certain medicines. What increases the risk? You are more likely to develop this condition if: ??? You have certain disorders or diseases. These may include: ? An endocrine disorder. ? An eating disorder. ? Amyloidosis. ? Scleroderma. ? Parkinson's disease. ? Multiple sclerosis. ? Cancer or infection of the stomach or the vagus nerve. ??? You have had surgery on your stomach or vagus nerve. ??? You take certain medicines. ??? You are female. What are the signs or symptoms? Symptoms of this condition include: ??? Feeling full after eating very little or a loss of appetite. ??? Nausea, vomiting, or heartburn. ??? Bloating of your abdomen. ??? Inconsistent blood sugar (glucose) levels on blood tests. ??? Unexplained weight loss. ??? Acid from the stomach coming up into the esophagus (gastroesophageal reflux). ??? Sudden tightening (spasm) of the stomach, which can be painful. Symptoms may come and go. Some people may not notice any symptoms. How is this diagnosed? This condition is diagnosed with tests, such as: ??? Tests that check how long it takes food to move through the stomach and intestines. These testsinclude: ? Upper gastrointestinal (GI) series. For this test, you drink a liquid that shows up well on X-rays, and then X-rays are taken of your intestines. ? Gastric emptying scintigraphy. For this test, you eat food that contains a small amount of radioactive material, and then scans are taken. ? Wireless capsule GI monitoring system. For this test, you swallow a pill (capsule) that records information about how foods and fluid move through your stomach. ??? Gastric manometry. For this test, a tube is passed down your throat and into your stomach to measure electrical and muscular activity. ??? Endoscopy. For this test, a long, thin tube with a camera and light on the end is passed down your throat and into your stomach to check for problems in your stomach lining. ??? Ultrasound. This test uses sound waves to create images of the inside of your body. This can help rule out gallbladder disease or pancreatitis as a cause of your symptoms. How is this treated? There is no cure for this condition, but treatment and home care may relieve symptoms. Treatment may include: ??? Treating the underlying cause. ??? Managing your symptoms by making changes to your diet and exercise habits. ??? Taking medicines to control nausea and vomiting and to stimulate stomach muscles. ??? Getting food through a feeding tube in the hospital. This may be done in severe cases. ??? Having surgery to insert a device called a gastric electrical stimulator into your body. This device helps improve stomach emptying and control nausea and vomiting. Follow these instructions at home: ??? Take ncpa-frn-kwgswiy and prescription medicines only as told by your health care provider. ??? Follow instructions from your health care provider about eating or drinking restrictions. Your health care provider may recommend that you: ? Eat smaller meals more often. ? Eat low-fat foods. ? Eat low-fiber forms of high-fiber foods. For example, eat cooked vegetables instead of raw vegetables. ? Have only liquid foods instead of solid foods. Liquid foods are easier to digest. ??? Drink enough fluid to keep your urine pale yellow. ??? Exercise as often as told by your health care provider. ??? Keep all follow-up visits. This is important. Contact a health care provider if you: ??? Notice that your symptoms do not improve with treatment. ??? Have new symptoms. Get help right away if you: ??? Have severe pain in your abdomen that does not improve with treatment. ??? Have nausea that is severe or does not go away. ??? Vomit every time you drink fluids. Summary ??? Gastroparesis is a long-term (chronic) condition in which food takes longer than normal to empty from the stomach. ??? Symptoms include nausea, vomiting, heartburn, bloating of your abdomen, and loss of ap (more content not included)...[facility]01-16-2025 Evaluation + Plan noteExtracted from: Title:ED Note Author:Yulissa ESCOBAR, Artem Flores te:10/08/24 Gastroparesis (K31.84: Gastr oparesis) Nausea & vomiting (R11.2: Nausea with vomiting, unspecified) Orders: famotidine, 20 mg = 2 mL, Soln-IV, IV Push, Once, Stop date 10/08/24 18:39:00 EST, STAT, Start date 10/08/24 18:39:00 EST, 10/08/24 18:39:00 EST morphine, 4 mg = 1 mL, Injection, IV Push, Once PRN Pain, STAT, Start date 10/08/24 18:39:00 EST, 10/08/24 18:39:00 EST promethazine 25 mg + Sodium Chloride 0.9% intravenous solution 50 mL, Injection, IV Piggyback, Once, Stop date 10/08/24 18:39:00 EST, STAT, Start date 10/08/24 18:39:00 EST, 153 mL/hr, Infuse over 20 minute(s) Basic Metabolic Panel Beta hCG Qual CBC w/ Auto Diff eGFR Hepatic Function Panel Lipase Level UA with Cult Rflx Future Appointments Appointment Date:10/13/2024 01:45:00 PM Scheduled Provider:Aly Beverly MD Location:[facility] Appoint[facility] Type:[facility] Follow Up Diagnostic Tests Pending * Urine Culture 10/08/24 Future Scheduled Tests Radiology* NM Gastric Emptying Study 05/25/24 [facility] [place] 01-16-2025 History of Present illness Narrative* Yossi Golden MD - 10/08/2024 10:50 AM ESTAssociated Problem(s): Class 2 severe obesity due to excess calories with serious comorbidity and body mass index (BMI) of 37.0 to 37.9 in adult ([facility]) Weight loss indicated * Yossi Golden MD - 10/08/2024 10:50 AM ESTAssociated Problem(s): Major depressive disorder, recurrent, moderate ([facility]) Symptoms unchanged and continue prozac. * Yossi Golden MD - 10/08/2024 10:49 AM ESTAssociated Problem(s): Type 2 diabetes mellitus with hyperglycemia, with long-term current use of insulin (CMS/HCC) BS improved and A1C 8.0. Follow with endo. * Yossi Golden MD - 10/08/2024 10:49 AM ESTAssociated Problem(s): Diabetic gastroparesis associated with type 2 diabetes mellitus (CMS/HCC) Symptoms unchanged and continue medication. Follow with GI. * Yossi Golden MD - 10/08/2024 10:49 AM ESTAssociated Problem(s): Nonalcoholic fatty liver Need to control lipids and lose weight. Start lipitor. * Yossi Golden MD - 10/08/2024 9:45 AM EST Images from the original note were not included. Subjective Patient ID: Gael Ruby is a 29 y.o. female who presents for Follow-up (3 m) and Abdominal Pain. Follow up DM, gastroparesis, and depression. Patient unchanged today. Continues to have severe nausea and vomiting. Continues to have severe abdominal pain and frequent visits to ER. Seen by GI and EGD and biopsies normal. Will see specialist for gastroparesis and possible procedure. BS improved and following with endo. Last A1C 8.0 and added new medication. BS around 200. Not able to eat much but tries to limit carbs. Depression unchanged. Down, sad, and no motivation. Not want to do anything or be around others. Upset with continued symptoms and not functioning well. Recent labs showed elevated cholesterol and patient with fatty liver. Review of Systems Respiratory: Negative for cough, shortness of breath and wheezing. Cardiovascular: Negative for chest pain and palpitations. Gastrointestinal: Negative for abdominal pain, diarrhea, nausea and vomiting. Genitourinary: Negative for dysuria. Objective Physical Exam Constitutional: General: She is not in acute distress. Appearance: Normal appearance. HENT: Head: Normocephalic. Right Ear: Tympanic membrane normal. Left Ear: Tympanic membrane normal. Eyes: Extraocular Movements: Extraocular movements intact. Pupils: Pupils are equal, round, and reactive to light. Cardiovascular: Rate and Rhythm: Normal rate and regular rhythm. Heart sounds: No murmur heard. No friction rub. No gallop. Pulmonary: Effort: Pulmonary effort is normal. Breath sounds: Normal breath sounds. No wheezing, rhonchi or rales. Abdominal: General: Bowel sounds are normal. There is no distension. Palpations: Abdomen is soft. Tenderness: There is no abdominal tenderness. There is no guarding or rebound. Musculoskeletal: Cervical back: Neck supple. Right lower leg: No edema. Left lower leg: No edema. Neurological: Mental Status: She is alert. Assessment/Plan Problem List Items Addressed This Visit Major depressive disorder, recurrent, moderate (CMS/HCC) Symptoms unchanged and continue prozac. Type 2 diabetes mellitus with hyperglycemia, with long-term current use of insulin (CMS/HCC) - Primary BS improved and A1C 8.0. Follow with endo. Diabetic gastroparesis associated with type 2 diabetes mellitus (CMS/HCC) Symptoms unchanged and continue medication. Follow with GI. Nonalcoholic fatty liver Need to control lipids and lose weight. Start lipitor. Dyslipidemia (CMS/HCC) Relevant Medications atorvastatin (Lipitor) 40 MG tablet [id number] Discharge instructions Patient Education 10/06/2024 19:33:53 Abdominal Pain, Adult, Ryfu-mc-Vkjd Abdominal Pain, Adult Many things can cause belly (abdominal) pain. In most cases, belly pain is not a serious problem and can be watched and treated at home. But in some cases, it can be serious. Your doctor will try to find the cause of your belly pain. Follow these instructions at home: Medicines Take rxwd-ttg-qlkfmaj and prescription medicines only as told by your doctor. Do not take medicines that help you poop (laxatives) unless told by your doctor. General instructions Watch your belly pain for any changes. Tell your doctor if the pain gets worse. Drink enough fluid to keep your pee (urine) pale yellow. Contact a doctor if: Your belly pain changes or gets worse. You have very bad cramping or bloating in your belly. You vomit. Your pain gets worse with meals, after eating, or with certain foods. You have trouble pooping or have watery poop for more than 2 3 days. You are not hungry, or you lose weight without trying. You have signs of not getting enough fluid or water (dehydration). These may include: ?Dark pee, very little pee, or no pee. ?Cracked lips or dry mouth. ?Feeling sleepy or weak. You have pain when you pee or poop. Your belly pain wakes you up at night. You have blood in your pee. You have a fever. Get help right away if: You cannot stop vomiting. Your pain is only in one part of your belly, like on the right side. You have bloody or black poop, or poop that looks like tar. You have trouble breathing. You have chest pain. These symptoms may be an emergency. Get help right away. Call 911. Do not wait to see if the symptoms will go away. Do not drive yourself to the hospital. This information is not intended to replace advice given to you by your health care provider. Make sure you discuss any questions you have with your health care provider. Document Revised: 06/26/2023 Document Reviewed: 06/26/2023 [employer] Patient Education 2023 [employer]. Follow Up Care 10/06/2024 13:01:38 With:Aly Beverly Address: [address] [facility], [facility] [address] [address] [phone] Business (1) When:10/09/2024 19:33:31 Comments:Call to schedule a follow-up appointment with your city weighmaster. Use the Bentyl and Phenerganas needed for symptom management. Return to the ED with any new or worsening symptoms. With:YOSSI GOLDEN Address: [address] [place] [address] Business (1) When:Within 3 Day(s) [facility] 01-14-2025 NoteED Patient Education Note Gastroenterology Abdominal Pain, Adult Many things can cause belly (abdominal) pain. In most cases, belly pain is not a serious problem and can be watched and treated at home. But in some cases, it can be serious. Your doctor will try to find the cause of your belly pain. Follow these instructions at home: Medicines ??? Take sila-whi-oravgsi and prescription medicines only as told by your doctor. ??? Do not take medicines that help you poop (laxatives) unless told by your doctor. General instructions ??? Watch your belly pain for any changes. Tell your doctor if the pain gets worse. ??? Drink enough fluid to keep your pee (urine) pale yellow. Contact a doctor if: ??? Your belly pain changes or gets worse. ??? You have very bad cramping or bloating in your belly. ??? You vomit. ??? Your pain gets worse with meals, after eating, or with certain foods. ??? You have trouble pooping or have watery poop for more than 2?3 days. ??? You are not hungry, or you lose weight without trying. ??? You have signs of not getting enough fluid or water (dehydration). These may include: ? Dark pee, very little pee, or no pee. ? Cracked lips or dry mouth. ? Feeling sleepy or weak. ??? You have pain when you pee or poop. ??? Your belly pain wakes you up at night. ??? You have blood in your pee. ??? You have a fever. Get help right away if: ??? You cannot stop vomiting. ??? Your pain is only in one part of your belly, like on the right side. ??? You have bloody or black poop, or poop that looks like tar. ??? You have trouble breathing. ??? You have chest pain. These symptoms may be an emergency. Get help right away. Call 911. ??? Do not wait to see if the symptoms will go away. ??? Do not drive yourself to the hospital. This information is not intended to replace advice given to you by your health care provider. Make sure you discuss any questions you have with your health care provider. Document Revised: 06/26/2023 Document Reviewed: 06/26/2023 [employer] Patient Education ? 2023 [employer].[facility] 10-05-2024 Hospital Discharge instructions Patient Education 10/05/2024 02:31:47 Gastroparesis Gastroparesis Gastroparesis is a condition in which food takes longer than normal to empty from the stomach. Thiscondition is also known as delayed gastric emptying. It is usually a long-term (chronic) condition. There is no cure, but there are treatments and things that you can do at home to help relieve symptoms. Treating the underlying condition that causes gastroparesis can also help relieve symptoms. What are the causes? In many cases, the cause of this condition is not known. Possible causes include: A hormone (endocrine) disorder, such as hypothyroidism or diabetes. A nervous system disease, such as Parkinson's disease or multiple sclerosis. Cancer, infection, or surgery that affects the stomach or vagus nerve. The vagus nerve runs from your chest, through your neck, and to the lower part of your brain. A connective tissue disorder, such as scleroderma. Certain medicines. What increases the risk? You are more likely to develop this condition if: You have certain disorders or diseases. These may include: ?An endocrine disorder. ?An eating disorder. ?Amyloidosis. ?Scleroderma. ?Parkinson's disease. ?Multiple sclerosis. ?Cancer or infection of the stomach or the vagus nerve. You have had surgery on your stomach or vagus nerve. You take certain medicines. You are female. What are the signs or symptoms? Symptoms of this condition include: Feeling full after eating very little or a loss of appetite. Nausea, vomiting, or heartburn. Bloating of your abdomen. Inconsistent blood sugar (glucose) levels on blood tests. Unexplained weight loss. Acid from the stomach coming up into the esophagus (gastroesophageal reflux). Sudden tightening (spasm) of the stomach, which can be painful. Symptoms may come and go. Some people may not notice any symptoms. How is this diagnosed? This condition is diagnosed with tests, such as: Tests that check how long it takes food to move through the stomach and intestines. These tests include: ?Upper gastrointestinal (GI) series. For this test, you drink a liquid that shows up well on X-rays, and then X-rays are taken of your intestines. ?Gastric emptying scintigraphy. For this test, you eat food that contains a small amount of radioactive material, and then scans are taken. ?Wireless capsule GI monitoring system. For this test, you swallow a pill (capsule) that records information about how foods and fluid move through your stomach. Gastric manometry. For this test, a tube is passed down your throat and into your stomach to measure electrical and muscular activity. Endoscopy. For this test, a long, thin tube with a camera and light on the end is passed down your throat and into your stomach to check for problems in your stomach lining. Ultrasound. This test uses sound waves to create images of the inside of your body. This can help rule out gallbladder disease or pancreatitis as a cause of your symptoms. How is this treated? There is no cure for this condition, but treatment and home care may relieve symptoms. Treatment may include: Treating the underlying cause. Managing your symptoms by making changes to your diet and exercise habits. Taking medicines to control nausea and vomiting and to stimulate stomach muscles. Getting food through a feeding tube in the hospital. This may be done in severe cases. Having surgery to insert a device called a gastric electrical stimulator into your body. This device helps improve stomach emptying and control nausea and vomiting. Follow these instructions at home: Take luyr-sjt-eqiyvda and prescription medicines only as told by your health care provider. Follow instructions from your health care provider about eating or drinking restrictions. Your health care provider may recommend that you: ?Eat smaller meals more often. ?Eat low-fat foods. ?Eat low-fiber forms of high-fiber foods. For example, eat cooked vegetables instead of raw vegetables. ?Have only liquid foods instead of solid foods. Liquid foods are easier to digest. Drink enough fluid to keep your urine pale yellow. Exercise as often as told by your health care provider. Keep all follow-up visits. This is important. Contact a health care provider if you: Notice that your symptoms do not improve with treatment. Have new symptoms. Get help right away if you: Have severe pain in your abdomen that does not improve with treatment. Have nausea that is severe or does not go away. Vomit every time you drink fluids. Summary Gastroparesis is a long-term (chronic) condition in which food takes longer than normal to empty from the stomach. Symptoms include nausea, vomiting, heartburn, bloating of your abdomen, and loss of appetite. Eating smaller portions, low-fat foods, and low-fiber forms of high-fiber foods may help you manageyour symptoms. Get help right away if you have severe pain in your abdomen. This information is not intended to replace advice given to you by your health care provider. Make sure you discuss any questions you have with your health care provider. Document Revised: 01/16/2021 Document Reviewed: 01/16/2021 [employer] Patient Education 2023 [employer]. Follow Up Care 10/04/2024 18:49:51 With:Colt Allan Address: [address], [address] [place] [address]- [phone] Business (1) When:10/08/2024 With:Colt Allan Address: [address], [address] [place] [address] [phone] Business (1) When:10/08/2024 With:YOSSI GOLDEN Address: [address] [place] [address] Business (1) When:Within 3 Day(s) [facility] 01-13-2025 NoteED Patient Education Note Gastroenterology Gastroparesis Gastroparesis is a condition in which food takes longer than normal to empty from the stomach. Thiscondition is also known as delayed gastric emptying. It is usually a long-term (chronic) condition. There is no cure, but there are treatments and things that you can do at home to help relieve symptoms. Treating the underlying condition that causes gastroparesis can also help relieve symptoms. What are the causes? In many cases, the cause of this condition is not known. Possible causes include: ??? A hormone (endocrine) disorder, such as hypothyroidism or diabetes. ??? A nervous system disease, such as Parkinson's disease or multiple sclerosis. ??? Cancer, infection, or surgery that affects the stomach or vagus nerve. The vagus nerve runs from your chest, through your neck, and to the lower part of your brain. ??? A connective tissue disorder, such as scleroderma. ??? Certain medicines. What increases the risk? You are more likely to develop this condition if: ??? You have certain disorders or diseases. These may include: ? An endocrine disorder. ? An eating disorder. ? Amyloidosis. ? Scleroderma. ? Parkinson's disease. ? Multiple sclerosis. ? Cancer or infection of the stomach or the vagus nerve. ??? You have had surgery on your stomach or vagus nerve. ??? You take certain medicines. ??? You are female. What are the signs or symptoms? Symptoms of this condition include: ??? Feeling full after eating very little or a loss of appetite. ??? Nausea, vomiting, or heartburn. ??? Bloating of your abdomen. ??? Inconsistent blood sugar (glucose) levels on blood tests. ??? Unexplained weight loss. ??? Acid from the stomach coming up into the esophagus (gastroesophageal reflux). ??? Sudden tightening (spasm) of the stomach, which can be painful. Symptoms may come and go. Some people may not notice any symptoms. How is this diagnosed? This condition is diagnosed with tests, such as: ??? Tests that check how long it takes food to move through the stomach and intestines. These testsinclude: ? Upper gastrointestinal (GI) series. For this test, you drink a liquid that shows up well on X-rays, and then X-rays are taken of your intestines. ? Gastric emptying scintigraphy. For this test, you eat food that contains a small amount of radioactive material, and then scans are taken. ? Wireless capsule GI monitoring system. For this test, you swallow a pill (capsule) that records information about how foods and fluid move through your stomach. ??? Gastric manometry. For this test, a tube is passed down your throat and into your stomach to measure electrical and muscular activity. ??? Endoscopy. For this test, a long, thin tube with a camera and light on the end is passed down your throat and into your stomach to check for problems in your stomach lining. ??? Ultrasound. This test uses sound waves to create images of the inside of your body. This can help rule out gallbladder disease or pancreatitis as a cause of your symptoms. How is this treated? There is no cure for this condition, but treatment and home care may relieve symptoms. Treatment may include: ??? Treating the underlying cause. ??? Managing your symptoms by making changes to your diet and exercise habits. ??? Taking medicines to control nausea and vomiting and to stimulate stomach muscles. ??? Getting food through a feeding tube in the hospital. This may be done in severe cases. ??? Having surgery to insert a device called a gastric electrical stimulator into your body. This device helps improve stomach emptying and control nausea and vomiting. Follow these instructions at home: ??? Take djkb-jla-nixdkrl and prescription medicines only as told by your health care provider. ??? Follow instructions from your health care provider about eating or drinking restrictions. Your health care provider may recommend that you: ? Eat smaller meals more often. ? Eat low-fat foods. ? Eat low-fiber forms of high-fiber foods. For example, eat cooked vegetables instead of raw vegetables. ? Have only liquid foods instead of solid foods. Liquid foods are easier to digest. ??? Drink enough fluid to keep your urine pale yellow. ??? Exercise as often as told by your health care provider. ??? Keep all follow-up visits. This is important. Contact a health care provider if you: ??? Notice that your symptoms do not improve with treatment. ??? Have new symptoms. Get help right away if you: ??? Have severe pain in your abdomen that does not improve with treatment. ??? Have nausea that is severe or does not go away. ??? Vomit every time you drink fluids. Summary ??? Gastroparesis is a long-term (chronic) condition in which food takes longer than normal to empty from the stomach. ??? Symptoms include nausea, vomiting, heartburn, bloating of your abdomen, and loss of ap (more content not included)...[facility]01-12-2025 Evaluation + Plan noteExtracted from: Title:ED Note Author:Tonny Butler DO Date :10/04/24 Acute abdominal pain (R10.9: Unspecified abdominal pain) Gastroparesis (K31.84: Gastroparesis) Orders: chlorproMAZINE, 25 mg = 1 mL, Injection, IntraMuscular, Once, Stop date 10/04/24 23:57:00 EST, STAT, Start date 10/04/24 23:57:00 EST, 10/04/24 23:57:00 EST diphenhydrAMINE, 25 mg = 0.5 mL, Injection, IV Push, Once, Stop date 10/05/24 0:52:00 EST, STAT, Start date 10/05/24 0:52:00 EST, 10/05/24 0:52:00 EST diphenhydrAMINE, 25 mg = 0.5 mL, Injection, IV Push, Once, Stop date 10/04/24 22:36:00 EST, STAT, Start date 10/04/24 22:36:00 EST, 10/04/24 22:36:00 EST famotidine, 20 mg = 2 mL, Soln-IV, IV Push, Once, Stop date 10/04/24 22:37:00 EST, STAT, Start date 10/04/24 22:37:00 EST, 10/04/24 22:37:00 EST hyoscyamine, 0.125 mg = 1 tab(s), Tab, SubLingual, Once, Stop date 10/05/24 0:51:00 EST, STAT, Start date 10/05/24 0:51:00 EST, 10/05/24 0:51:00 EST morphine, 4 mg = 1 mL, Injection, IV Push, Once, Stop date 10/04/24 23:57:00 EST, STAT, Start date 10/04/24 23:57:00 EST, 10/04/24 23:57:00 EST promethazine 25 mg + Sodium Chloride 0.9% intravenous solution 50 mL, Injection, IV Piggyback, Once, Stop date 10/04/24 22:36:00 EST, STAT, Start date 10/04/24 22:36:00 EST, 153 mL/hr, Infuse over 20 minute(s) Future Scheduled Tests Radiology* NM Gastric Emptying Study 05/25/24 [facility] 01-09-2025 NotePatient Education Materials Name: Gael Ruby Current Date: 10/01/2024 09:50:51 Jose[facility] : 1995 The following sheet(s) are the Patient Education Leaflets for Gael Ruby Custom Diabetes office visit A1c 8.0% start Januvia, recommend stopping regular sodas changed to sugar-free options, reduce carbs after noon and into the evening eating more protein at those meals. Once blood sugar averages reach goal under 130 recommend reducing Lantus Breakfast: Jardiance 10mg + glipizide 10 mg + januvia 100mg Lunch: Dinner Bedtime glipizide 10 mg + Lantus 25 units May call or stop by office for CGM/glucometer download and review for instrution on further med adjustment. Health Maintenance Goals Blood sugar goals ? A1c goal less than 7% to prevent acute care certified nursing assistant complications that high sugar can lead to damage of small vessels of all organs specifically eyes, heart, brain, kidneys, skin and nerves. ? Use your meter readings as a guide to improve diet and exercise. ? Fasting and premeal blood sugar goal range 80-130 ? 1-2 hours after meal, bedtime goal less than 180 Hypoglycemia treatment ? Check blood sugar if you have symptoms of low which may include sweating, hunger, lightheaded, shakiness, nausea, confusion, blurred vision If low BS less than 70 treat following Rule of 15's: ? Eat 15 g carbs: 3 glucose tabs or 4 ounces fruit juice or regular soda, or 6-7 hard candies, or 1tablespoon or sugar ? If blood sugar remains <80 after eating 15 g of carbs and waiting 15 minutes may repeat if blood sugar remains low ? No driving until glucose is normal. Instruct family members should be instructed in use of glucagon injection or nasal route in the instance of profound hypoglycemia. Diet Goals ? Continue working on proper diet choices increasing whole foodds with protein and vegetables. Avoid sugary drinks, avoid white/starchy foods (rice, pasta, potatoes), limit snacks and processed foodswith high carb foods. Weight Loss Goal ? 5-10% if BMI is over 25 through diet and exercise. Goal BMI range 18.5 to 25. Activity Goal ? Minimum 10,000 steps daily. Intentional exercise 30 minutes at least 5 days a week for a total of150 min of moderate to intense aerobic activity with goals of increasing heart rate at least 50-70%, walking is a great way to accomplish this goal Blood Pressure Goal ? Less than 130/80. Yearly urine labs and blood draw to monitor kidney function Cholesterol Goal ? LDL less than 100 and <70 in presence of heart disease. Vision ? Dilated eye exam should be performed yearly, starting within 5 years of initial diagnosis, or more often in cases of retinopathy Feet ? Daily home feet exams. Look for open wounds, developing sores, blisters, cracks, nailbed concerns. See regional account manager for toenail trimming and promptly for any sites of concern. Vaccines ? Flu Shot recommended yearly in the fall. ? COVID vaccine initial series and booster ? Pneumovax recommended once prior to age 65 and then every 5 years. ? Hepatitis B series recommended ? Zostavax recommended age 60 Healthy Meal Tips PROTEIN: Choose foods high in protein. Eating protein that is low in fat can help you control your weight. It also helps keep your heart healthy. Low-fat high-protein foods include: ? Fish ? Plant proteins, such as dry beans and peas, nuts, and soy products like tofu and soymilk ? Lean meat with all visible fat removed ? Poultry with the skin removed ? Low-fat or nonfat milk, corrage cheese, venezuelan yogurt, cheese FIBER: Fiber goal over 25 grams per day Starches, sugars, and fiber are all types of carbohydrates. Choose healthy carbohydrates high in Fiber. Fiber can help lower your cholesterol and triglycerides. Fiber is also healthy for your heart. You should have 25 grams of total fiber each day. Examples Fiber rich foods: Whole-grain breads and cereals Bulgur wheat Brown rice Whole-wheat pasta Fruits and Vegetables Dry beans and Peas CARBS: Carbohydrate goal under 150g per day Keep track of the amount of carbohydrates you eat. This can help you keep the right balance of physical activity and medicine. The amount of carbohydrates needed varies for each person depending on things such as your health, the medicines you take and how active you are. You may start with around 45 to 60 grams of carbohydrates per meal, depending on your situation. Examples of foods with less than 15 grams of carbohydrates (1 serving of carbohydrates): 1/2 cup canned or frozen fruit 1 slice Bread 1 cup of Soup Small piece of fresh fruit (4 ounces) ? cup Oatmeal ? cup Casserole ? cup Ice Cream or Sherbet ? Somali Muffin ? large Baked Potato (3 ounces) 2 small Cookies 4 to 6 Crackers 1/3 cup Rice 2-inch square Cake without Frosting 2-inch square Brownie 6 chicken Nuggets FATS: Saturated and trans fats are unhealthy for your heart. They raise LDL (bad) cholesterol. Fat is also high in c (more content not included)...[facility]01-08-2025 Hospital Discharge instructions Patient Education 09/30/2024 13:04:05 Abdominal Pain, Adult Abdominal Pain, Adult Pain in the abdomen (abdominal pain) can be caused by many things. In most cases, it gets better with no treatment or by being treated at home. But in some cases, it can be serious. Your health care provider will ask questions about your medical history and do a physical exam to try to figure out what is causing your pain. Follow these instructions at home: Medicines Take bazz-rdl-ulgfrgc and prescription medicines only as told by your provider. Do not take medicines that help you poop (laxatives) unless told by your provider. General instructions Watch your condition for any changes. Drink enough fluid to keep your pee (urine) pale yellow. Contact a health care provider if: Your pain changes, gets worse, or lasts longer than expected. You have severe cramping or bloating in your abdomen, or you vomit. Your pain gets worse with meals, after eating, or with certain foods. You are constipated or have diarrhea for more than 2 3 days. You are not hungry, or you lose weight without trying. You have signs of dehydration. These may include: ?Dark pee, very little pee, or no pee. ?Cracked lips or dry mouth. ?Sleepiness or weakness. You have pain when you pee (urinate) or poop. Your abdominal pain wakes you up at night. You have blood in your pee. You have a fever. Get help right away if: You cannot stop vomiting. Your pain is only in one part of the abdomen. Pain on the right side could be caused by appendicitis. You have bloody or black poop (stool), or poop that looks like tar. You have trouble breathing. You have chest pain. These symptoms may be an emergency. Get help right away. Call 911. Do not wait to see if the symptoms will go away. Do not drive yourself to the hospital. This information is not intended to replace advice given to you by your health care provider. Make sure you discuss any questions you have with your health care provider. Document Revised: 06/26/2023 Document Reviewed: 06/26/2023 [employer] Patient Education 2023 [employer]. Follow Up Care 09/30/2024 10:46:00 With:YOSSI GOLDEN Address: [facility] [place] [address] [address] Business (1) When:10/03/2024 12:59:39 Comments:Call the office of your primary care doctor to arrange for follow-up within the above-stated timeframe. Follow-up with your primary care doctor about this ED visit. You should review your labs, imaging, and diagnoses from this ED visit with your primary care physician. There are occasionally non-emergent findings that require additional follow-up after your ED visit. If you were prescribed medications you should discuss possible side-effects and drug interactions with your pharmacist. Call 911 or go to the nearest Emergency Department if you develop any new or worsening symptoms.Seek immediate medical attention if you develop:worsening abdominal pain, new or worsening nausea, new or worsening vomiting, new or worsening diarrhea, chest pain, shortness of breath, pain with urination, problems urinating, fever, chills, weakness, or any new or worsening symptoms. 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) Epigastric abdominal pain (R10.13: Epigastric pain) Gastroparesis (K31.84: Gastroparesis) Orders: diphenhydrAMINE, 25 mg = 0.5 mL, Injection, IV Push, Once, Stop date 09/30/24 11:30:00 EST, STAT, Start date 09/30/24 11:30:00 EST, 09/30/24 11:30:00 EST famotidine, 20 mg = 2 mL, Soln-IV, IV Push, Once, Stop date 09/30/24 11:30:00 EST, STAT, Start date 09/30/24 11:30:00 EST, 09/30/24 11:30:00 EST morphine, 4 mg = 1 mL, Injection, IV Push, Once, Stop date 09/30/24 11:29:00 EST, STAT, Start date 09/30/24 11:29:00 EST, 09/30/24 11:29:00 EST ondansetron, 4 mg = 2 mL, Injection, IV Push, Once, Stop date 09/30/24 11:29:00 EST, STAT, Start date 09/30/24 11:29:00 EST, 09/30/24 11:29:00 EST promethazine 25 mg + Sodium Chloride 0.9% intravenous solution 50 mL, Injection, IV Piggyback, Once, Stop date 09/30/24 11:29:00 EST, STAT, Start date 09/30/24 11:29:00 EST, 153 mL/hr, Infuse over 20 minute(s) Sodium Chloride 0.9% intravenous solution 1,000 mL, 1,000 mL, IV, 999 mL/hr, STAT, Start date 09/30/24 11:29:00 EST, 1 hour(s), Total volume (mL): 1,000, 112.8 kg, 2.32, m2 Basic Metabolic Panel Beta hCG Qual CBC w/ Auto Diff ECG 12 Lead Adult ED Cardiac Monitoring eGFR Hepatic Function Panel Lipase Level Saline Lock Insert UA with Cult Rflx Future Scheduled Tests Radiology* NM Gastric Emptying Study 05/25/24 [facility] 01-08-2025 NoteED Patient Education Note Gastroenterology Abdominal Pain, Adult Pain in the abdomen (abdominal pain) can be caused by many things. In most cases, it gets better with no treatment or by being treated at home. But in some cases, it can be serious. Your health care provider will ask questions about your medical history and do a physical exam to try to figure out what is causing your pain. Follow these instructions at home: Medicines ??? Take pfzf-eqg-eqnltjq and prescription medicines only as told by your provider. ??? Do not take medicines that help you poop (laxatives) unless told by your provider. General instructions ??? Watch your condition for any changes. ??? Drink enough fluid to keep your pee (urine) pale yellow. Contact a health care provider if: ??? Your pain changes, gets worse, or lasts longer than expected. ??? You have severe cramping or bloating in your abdomen, or you vomit. ??? Your pain gets worse with meals, after eating, or with certain foods. ??? You are constipated or have diarrhea for more than 2?3 days. ??? You are not hungry, or you lose weight without trying. ??? You have signs of dehydration. These may include: ? Dark pee, very little pee, or no pee. ? Cracked lips or dry mouth. ? Sleepiness or weakness. ??? You have pain when you pee (urinate) or poop. ??? Your abdominal pain wakes you up at night. ??? You have blood in your pee. ??? You have a fever. Get help right away if: ??? You cannot stop vomiting. ??? Your pain is only in one part of the abdomen. Pain on the right side could be caused by appendicitis. ??? You have bloody or black poop (stool), or poop that looks like tar. ??? You have trouble breathing. ??? You have chest pain. These symptoms may be an emergency. Get help right away. Call 911. ??? Do not wait to see if the symptoms will go away. ??? Do not drive yourself to the hospital. This information is not intended to replace advice given to you by your health care provider. Make sure you discuss any questions you have with your health care provider. Document Revised: 06/26/2023 Document Reviewed: 06/26/2023 [employer] Patient Education ? 2023 [employer].[facility] 09-24-2024 Note* Addendum Note - Yajaira Lackey DO - 09/24/2024 3:36 PM EST Addended by: YAJAIRA LACKEY on: 09/24/2024 03:36 PM Modules accepted: Orders [facility]01-02-2025 Miscellaneous Notes* Addendum Note - Yajaira Lackey DO - 09/24/2024 3:36 PM ESTAddended by: YAJAIRA LACKEY on: 09/24/2024 03:36 PM Modules accepted: Orders * Telephone Encounter - Yajaira Lackey DO - 09/24/2024 3:35 PM EST ME AND SURGERY, EGG is in * Telephone Encounter - Nancy Del Valle - 09/24/2024 1:38 PM EST Gastric Emptying Study? Yes Oatmeal (Pt allergic to egg, documentation in scanned docs) Has the patient had a Smart Pill? No When was your last EGD? 2023 Has the patient had Gastric Bypass? No Has the patient had a Gastric Sleeve? No Has the patient had a Kylie or Hiatal Hernia Repair? No Gallbladder: 2020 Hysterectomy: 2021 Has the patient had POP/Pyloroplasty? No Is the patient currently on TPN? No Does the patient have a G/J Tube? No Do you have at least 3 bowel movements a week? Yes Referring Provider: Beto Lu * Telephone Encounter - Abel Beckwith - 09/24/2024 1:34 PM EST GI records in scanned docs No GES/allergic to Egg Intake needed * Telephone Encounter - Abel Beckwith - 09/24/2024 1:34 PM EST ----- Message from Anne Cavazos sent at 09/21/2024 10:38 AM EST ----- Regarding: Gastroparesis Good morning, We received a referral for patient to be seen in Gastroenterology for Gastroparesis. Referring provider is Aly Beverly. Best contact info is [phone]. Thank you, Marilyn [facility] encounter Note * Telephone Encounter - Yajaira Lackey DO - 09/24/2024 3:35 PM EST ME AND SURGERY, EGG is in [facility]01-02-[facility] Telephone encounter Note* Telephone Encounter - Nancy Del Valle - 09/24/2024 1:38 PM EST Gastric Emptying Study? Yes Oatmeal (Pt allergic to egg, documentation in scanned docs) Has the patient had a Smart Pill? No When was your last EGD? 2023 Has the patient had Gastric Bypass? No Has the patient had a Gastric Sleeve? No Has the patient had a Kylie or Hiatal Hernia Repair? No Gallbladder: 2019 Hysterectomy: 2021 Has the patient had POP/Pyloroplasty? No Is the patient currently on TPN? No Does the patient have a G/J Tube? No Do you have at least 3 bowel movements a week? Yes Referring Provider: Beto Lu [facility]01-02-2025 Telephone encounter Note* Telephone Encounter - Abel Beckwith - 09/24/2024 1:34 PM EST GI records in scanned docs No GES/allergic to Egg Intake needed [facility]01-02-2025 Telephone encounter Note* Telephone Encounter - Abel Beckwith - 09/24/2024 1:34 PM EST ----- Message from Anne Cavazos sent at 09/21/2024 10:38 AM EST ----- Regarding: Gastroparesis Good morning, We received a referral for patient to be seen in Gastroenterology for Gastroparesis. Referring provider is Aly Beverly. Best contact info is [phone]. Thank you, Marilyn [facility]12-26-2024 Hospital Discharge instructions* Discharge Instructions* Rod Colmenares MD - 09/17/2024 3:24 PM EST Follow up with the listed physician or medical clinic within 24-72 hours. Return to the Emergency Department if you develop any new or concerning symptoms or if your are getting worse * Attachments The following attachments cannot be sent through Care Everywhere. * Nausea and Vomiting (Somali) [facility] NoteProgress Note-Physician Patient: GAEL RUBY Age: 29 years Sex: Female : 1995 Associated Diagnoses: None Author: Joao Kelley Jr., DO Postoperative Information Postoperative disposition: Postoperative disposition: Home. Optimetrix number: Optimetrix number [id number]. Anesthetic utilized: General. Physical Examination Vital Signs 09/02/2024 15:30 EST Heart Rate Monitored 97 bpm Respiratory Rate Monitored 14 br/min Systolic Blood Pressure 106 mmHg Diastolic Blood Pressure 66 mmHg Mean Arterial Pressure, Cuff 79 mmHg SpO2 96 % 09/02/2024 15:15 EST Heart Rate Monitored 86 bpm Respiratory Rate Monitored 18 br/min Systolic Blood Pressure 114 mmHg Diastolic Blood Pressure 87 mmHg Mean Arterial Pressure, Cuff 96 mmHg SpO2 96 % 09/02/2024 15:09 EST Systolic Blood Pressure 97 mmHg Diastolic Blood Pressure 73 mmHg 09/02/2024 15:05 EST Temperature Temporal Artery 36.5 DegC Heart Rate Monitored 98 bpm Respiratory Rate Monitored 18 br/min Systolic Blood Pressure 155 mmHg HI Diastolic Blood Pressure 142 mmHg HI Mean Arterial Pressure, Cuff 146 mmHg SpO2 92 % Pain Assessment: Controlled. General: Awake, Alert, Appropriate. Respiratory: Adequate air exchange, Non-labored. Cardiovascular: Stable, Normal peripheral perfusion. Neurological: Neurologic exam at baseline. No changes.. Assessment Anesthetic outcome No anesthetic complications noted. No nausea/vomiting. Review / Management Condition: Stable. Plan Transfer/Discharge: Transfer/Discharge Discharge when meets criteria ( From PACU to Ambulatory Surgery Unit, and To home ).[facility]:Result Comment: Electronically Signed By: Joao Kelley Jr., DO\.br\Date and Time Signed: 09/02/24 16:37 [id number] NotePatient Education - Text Endoscopy Care After Procedure Please read the instructions outlined below and refer to this sheet in the next few weeks. These discharge instructions provide you with general information on caring for yourself after you leave thehospital. Your doctor may also give you specific instructions. While your treatment has been planned according to the most current medical practices available, unavoidable complications occasionally occur. If you have any problems or questions after discharge, please call your doctor. ACTIVITY ??? You may resume your regular activity but move at a slower pace for the next 24 hours. ??? Take frequent rest periods for the next 24 hours. ??? Walking will help expel (get rid of) the air and reduce the bloated feeling in your abdomen. ??? No driving for 24 hours (because of the anesthesia (medicine) used during the test). ??? You may shower. ??? Do not sign any important legal documents or operate any machinery for 24 hours (because of theanesthesia used during the test). NUTRITION ??? Drink plenty of fluids. ??? You may resume your normal diet. ??? Begin with a light meal and progress to your normal diet. ??? Avoid alcoholic beverages for 24 hours or as instructed by your caregiver. MEDICATIONS ??? You may resume your normal medications unless your caregiver tells you otherwise. WHAT YOU CAN EXPECT TODAY ??? You may experience abdominal discomfort such as a feeling of fullness or ???gas??? pains. FOLLOW-UP ??? Your doctor will discuss the results of your test with you. seek immediate medical attention if any of the following occur: ??? Excessive nausea (feeling sick to your stomach) and/or vomiting. ??? Severe abdominal pain and distention (swelling). ??? Trouble swallowing. ??? Temperature over 100 F (37.8??? C). ??? Rectal bleeding or vomiting of blood. Document Released: 04/23/2005 Document Re-Released: 03/03/2007 ExitCare??? Patient Information ???2009 [employer]. Infectious Disease Gastritis, Adult Gastritis is irritation and swelling (inflammation) of the stomach. There are two kinds of gastritis: ??? Acute gastritis. This kind develops quickly. ??? Chronic gastritis. This kind is much more common. It develops slowly and lasts for a long time. It is important to get help for this condition. If you do not get help, your stomach can bleed, andyou can get sores (ulcers) in your stomach. What are the causes? This condition may be caused by: ??? Germs that get to your stomach and cause an infection. ??? Drinking too much alcohol. ??? Medicines you are taking. ??? Having too much acid in the stomach. ??? Having a disease of the stomach. Other causes may include: ??? An allergic reaction. ??? Some cancer treatments (radiation). ??? Smoking cigarettes or using products that contain nicotine or tobacco. In some cases, the cause of this condition is not known. What increases the risk? Having a disease of the intestines. ??? Having Crohn's disease. ??? Using aspirin or ibuprofen and other NSAIDs to treat other conditions. ??? Stress. What are the signs or symptoms? Pain in your stomach. ??? A burning feeling in your stomach. ??? Feeling like you may vomit (nauseous). ??? Vomiting or vomiting blood. ??? Feeling too full after you eat. ??? Weight loss. ??? Bad breath. ??? Blood in your poop (stool). In some cases, there are no symptoms. How is this treated? This condition is treated with medicines. The medicines that are used depend on what caused the condition. You may be given: ??? Antibiotic medicine, if your condition was caused by an infection from germs. ??? H2 blockers and similar medicines, if your condition was caused by too much acid in the stomach. Treatment may also include stopping the use of certain medicines, such as aspirin or ibuprofen. Follow these instructions at home: Medicines ??? Take icyt-utp-moaozvv and prescription medicines only as told by your doctor. ??? If you were prescribed an antibiotic medicine, take it as told by your doctor. Do not stop taking it even if you start to feel better. Alcohol use ??? Do not drink alcohol if: ? Your doctor tells you not to drink. ? You are , may be , or are planning to become . ??? If you drink alcohol: ? Limit your use to: ? 0?1 drink a day for women. ? 0?2 drinks a day for men. ? Know how much alcohol is in your drink. In the [place] one drink equals one 12 oz bottle of beer (355 mL), one 5 oz glass of wine (148 mL), or one 1? oz glass of hard liquor (44 mL). General instructions ??? Eat small meals often, instead of large meals. ??? Avoid foods and drinks that make you feel worse. ??? Drink enough fluid to keep your pee (urine) pale yellow. ??? Talk with your doctor about ways to manage stress. You can exercise or do deep yeny (more content not included)...[facility] NoteEndoscopic Procedure Report - Other Patient: GAEL RUBY Age: 29 years Sex: Female : 1995 Associated Diagnoses: None Author: Aly Beverly MD Pre-Procedure Procedure Date 09/02/2024 15:01:00 . Procedure Type: Esophagogastroduodenoscopy with biopsy. Procedure provider Performed by Aly Beverly MD. Current history and physical Documented on chart. Informed Consent After discussing the rationale, risks and benefits, and alternatives to this procedure, the patient provided signed consent for the procedure. Pre-procedure diagnosis: anemia. Medications Anticoagulant/antiplatelet None. ASA Classification: Class III. . Monitoring: See anesthesia record. . Procedure The procedure was performed in the hospital. See anesthesia record for sedation given during procedure. The patient was positioned starting in the left lateral decubitus position and with safety measures. Endoscope type used was an adult- size, introduced orally, advanced to the 3rd portion of the duodenum. Somewhat difficult due to high doses of propofol sedation required and still not achieving bosselation, pressing on the bite block Views were excellent. The patient tolerated the procedure well. Findings 1. Normal esophagus 2. Erythema in the antrum, mild patchy. Widely open pylorus. Otherwise normal stomach. Biopsies of the stomach were taken to rule out H. pylori. 3. Mild patchy erythema in the duodenum with loss of villi, random biopsies were taken to rule out celiac disease Images Procedure images: Rec1_hd_video_2023____[id number].jpg Rec1_hd_video_2023___[id number].jpg Rec1_hd_video_2023____36_[id number].jpg Rec1_hd_video____48_[id number].jpg Rec1_hd_video_2023____07_[id number].jpg Rec1_hd_video_2023____04_[id number].jpg Rec1_hd_video_2023____53_[id number].jpg Rec1_hd_video_2023____44_[id number].jpg Rec1_hd_video_2023____41_[id number].jpg Rec1_hd_video_2023____32_[id number].jpg . Post-Procedure Complications: none. Estimated blood loss: minimal. Specimens: sent to pathology. Devices/ implants: none left in place. Impression and Plan 1. Normal esophagus, attempted empiric dilation of the esophagus but because of biting on the whiteblood it was not possible to pass the dilator through the bite block 2. Erythema in the antrum, mild patchy. Widely open pylorus. Otherwise normal stomach. Biopsies of the stomach were taken to rule out H. pylori. 3. Mild patchy erythema in the duodenum with loss of villi, random biopsies were taken to rule out celiac disease Recommendations: -Resume previous diet -Resume home medications -Await pathology results, follow in GI clinic in 1-2 after dischargeR[facility] InstituteComment on above:Result Comment: Electronically Signed By: Aly Beverly MD\.br\Date and Time Signed: 09/02/24 15:04 ESTOther Comment: Missing Attachment - attachment storage system not supported [id number] Can be viewed in source system Missing Attachment - attachment storage system not supported [id number] Can be viewed in source systemMissing Attachment - attachment storage system not supported [id number] Can be viewed in source systemMissing Attachment - attachment storage system not supported [id number] Can be viewed in source systemMissing Attachment - attachment storage system not supported [id number] Can be viewed in source systemMissing Attachment - attachment storage system not supported [id number] Can be viewed in source systemMissing Attachment - attachment storage system not supported [id number] Can be viewed in source systemMissing Attachment - attachment storage system not supported [id number] Can be viewed in source system Missing Attachment - attachment storage system not supported [id number] Can be viewed in source systemMissing Attachment - attachment storage system not supported [id number] Can be viewed in source [id number] NoteHistory and Physical Patient: GAEL RUBY Age: 29 years Sex: Female : 1995 Associated Diagnoses: None Author: Beto GREWAL, Aly Whitten Preoperative Information Indication for procedure and diagnosis: dysphagia, n/v Chief Complaint as above Review of Systems All systems reviewed, negative except as mentioned above Health Status Current medications: (Selected) Inpatient Medications Ordered Lactated Ringers IV Deniz 1000 mL 1,000 mL: 1,000 mL, IV, 100 mL/hr, Routine, Start date 09/02/24 13:37:00 EST, 10 hour(s), Total volume (mL): 1,000, 114 kg, 2.34, m2 Sodium Chloride 0.9% 60 mL syringe 60 mL: 60 mL, IV, 20 mL/hr, Routine, Start date 09/02/24 6:50:00EST, 3 hour(s), Total volume (mL): 60, 114 kg, 2.34, m2 Prescriptions Prescribed Ibgard 90 mg oral delayed release capsule: 180 mg = 2 cap(s), Oral, BID, PRN abdominal pain/cramps,# 12 cap(s), Refills(s) 0, samples given to patient (Rx) Linzess 72 mcg oral capsule: 72 mcg = 1 cap(s), Oral, Every other day, X 90 day(s), # 45 cap(s), Refills(s) 0, Pharmacy: [facility] [id number], 172, cm, 08/13/24 9:03:00 EST, Height/Length Dosing,112, kg, 08/13/24 9:03:00 EST, Weight Dosing Motegrity 2 mg oral tablet: 2 mg = 1 tab(s), Oral, Daily, # 30 tab(s), Refills(s) 3, Pharmacy: [facility] [id number], 172, cm, 08/10/24 10:32:00 EST, Height/Length Dosing, 112, kg, 08/10/24 10:32:00 EST, Weight Dosing Pantoprazole [address] Tab: 40 mg = 1 tab(s), Oral, Daily, X 30 day(s), # 30 tab(s), Refills(s) 0, Pharmacy: [facility] [id number], 172, cm, 08/07/24 9:14:00 EST, Height/Length Dosing, 111.2, kg, 08/07/24 9:14:00 EST, Weight Dosing Phenergan 25 mg Supp: 25 mg = 1 supp, Rectal, q12hr, PRN Nausea/Vomiting, # 60 EA, Refills(s) 6, Pharmacy: [facility] [id number], 173, cm, 06/01/24 9:48:00 EDT, Height/Length Dosing, 111, kg, 06/01/24 9:48:00 EDT, Weight Dosing Reglan 10 mg Tab: 10 mg = 1 tab(s), Oral, q6hr, # 12 tab(s), Refills(s) 0, Pharmacy: [facility] [id number], 173, cm, 06/09/24 2:42:00 EDT, Height/Length Dosing, 115.4, kg, 06/09/24 2:42:00 EDT, Weight Dosing Zofran 4 mg Tab: 4 mg = 1 tab(s), Oral, q8hr, PRN Nausea/Vomiting, # 60 tab(s), Refills(s) 6, Pharmacy: [facility] [id number], 173, cm, 06/01/24 9:48:00 EDT, Height/Length Dosing, 111, kg, 06/01/24 9:48:00 EDT, Weight Dosing Documented Medications Documented Albuterol (Eqv-ProAir HFA) 90 mcg/inh inhalation aerosol: 2 puff(s), Inhalation, q4hr Wheezing, Refill(s) 0 Lantus 100 units/mL Injection-Insulin: 30 unit(s), SubCutaneous, Once a day (at bedtime), Refills(s) 0, High blood sugar MiraLax: 17 gm, Oral, TID, Refill(s) 0 Prozac 40 mg Cap: 40 mg = 1 cap(s), Oral, Daily, at bedtime, Refills(s) 0, Anxiety glipiZIDE 10 mg Tab: 10 mg = 1 tab(s), Oral, BID, Refills(s) 0 hydrOXYzine hydrochloride 25 mg Tab: 25 mg = 1 tab(s), Oral, q6hr, PRN as needed for anxiety, Refills(s) 0 ibuprofen: Refills(s) 0, Home Medications (14) Active Albuterol (Eqv-ProAir HFA) 90 mcg/inh inhalation aerosol 2 puff(s), PRN, Inhalation, q4hr glipiZIDE 10 mg Tab 10 mg = 1 tab(s), Oral, BID hydrOXYzine hydrochloride 25 mg Tab 25 mg = 1 tab(s), PRN, Oral, q6hr Ibgard 90 mg oral delayed release capsule 180 mg = 2 cap(s), PRN, Oral, BID ibuprofen Lantus 100 units/mL Injection-Insulin 30 unit(s), SubCutaneous, Once a day (at bedtime) Linzess 72 mcg oral capsule 72 mcg = 1 cap(s), Oral, Every other day MiraLax 17 gm, Oral, TID Motegrity 2 mg oral tablet 2 mg = 1 tab(s), Oral, Daily Pantoprazole [address] Tab 40 mg = 1 tab(s), Oral, Daily Phenergan 25 mg Supp 25 mg = 1 supp, PRN, Rectal, q12hr Prozac 40 mg Cap 40 mg = 1 cap(s), Oral, Daily Reglan 10 mg Tab 10 mg = 1 tab(s), Oral, q6hr Zofran 4 mg Tab 4 mg = 1 tab(s), PRN, Oral, q8hr Problem list: All Problems Acute pancreatitis / SNOMED CT 802796455 / Confirmed Cholangiectasis / SNOMED CT 595405128 / Confirmed Cyst of right ovary / SNOMED CT 402579418746851 / Confirmed Diarrhea / SNOMED CT 545407818 / Confirmed Endometriosis (clinical) / SNOMED CT 458888471 / Confirmed Essential hypertension / SNOMED CT 89078210 / Confirmed Hiatal hernia / SNOMED CT 370449926 / Confirmed Left ventricular hypertrophy / SNOMED CT 50444053 / Confirmed Morbid obesity / SNOMED CT 695212854 / Confirmed Prolapsed lumbar intervertebral disc / SNOMED CT 440042765 / Confirmed Smoker / SNOMED CT 011290388 / Confirmed Bilateral lower extremity edema / SNOMED CT 6025589583 / Confirmed Dysphagia / SNOMED CT 65526233 / Confirmed GERD (gastroesophageal reflux disease) / SNOMED CT 871527763 / Confirmed History of pulmonary embolism / SNOMED CT 217729810 / Confirmed Insomnia / SNOMED CT 348080664 / Confirmed LINA (generalized anxiety disorder) / SNOMED CT 50094746 / Confirmed Depression / SNOMED CT 96541933 / Confirmed Diabetes / SNOMED CT 720913015 / Confirmed BMI 37.0-37.9, adult / SNOMED CT 284573543 / Confirmed Factor V Leiden / SN (more content not included)...[facility] Comment on above:Result Comment: Electronically Signed By: Beto GREWAL, Aly Whitten\.br\Date and Time Signed: 09/02/24 14:51 [id number] NoteProgress Note-Physician Patient: GAEL RUBY Age: 29 years Sex: Female : 1995 Associated Diagnoses: None Author: Joao Kelley Jr., DO Preoperative Information Anesthesia history: Patient history: No prior anesthetic problems. Informed consent: Signed by patient. Re-evaluation prior to induction: Initial evaluation reviewed: No significant change. Review of Systems Respiratory: Negative except as documented in history of present illness. Cardiovascular: Negative except as documented in history of present illness. Health Status Allergies: Allergic Reactions (Selected) Severity Not Documented Amoxicillin- Rash and nausea and vomiting. Eggs- Abdominal pain. Ketorolac- Itching and dyspnea. Kiwi- Unk. Latex- Itching. Meperidine- Dyspnea and itching. Pyridium- Unk. TraMADol- Unknown., Allergies (9) Active Severity Reaction amoxicillin Nausea and vomiting ketorolac Dyspnea, Itching meperidine Dyspnea, Itching traMADol Unknown amoxicillin Rash Latex Itching Eggs Abdominal pain Kiwi unk Pyridium unk Current medications: (Selected) Inpatient Medications Ordered Lactated Ringers IV Deniz 1000 mL 1,000 mL: 1,000 mL, IV, 100 mL/hr, Routine, Start date 09/02/24 13:37:00 EST, 10 hour(s), Total volume (mL): 1,000, 114 kg, 2.34, m2 Sodium Chloride 0.9% 60 mL syringe 60 mL: 60 mL, IV, 20 mL/hr, Routine, Start date 09/02/24 6:50:00EST, 3 hour(s), Total volume (mL): 60, 114 kg, 2.34, m2 Prescriptions Prescribed Ibgard 90 mg oral delayed release capsule: 180 mg = 2 cap(s), Oral, BID, PRN abdominal pain/cramps,# 12 cap(s), Refills(s) 0, samples given to patient (Rx) Linzess 72 mcg oral capsule: 72 mcg = 1 cap(s), Oral, Every other day, X 90 day(s), # 45 cap(s), Refills(s) 0, Pharmacy: [facility] [id number], 172, cm, 08/13/24 9:03:00 EST, Height/Length Dosing,112, kg, 08/13/24 9:03:00 EST, Weight Dosing Motegrity 2 mg oral tablet: 2 mg = 1 tab(s), Oral, Daily, # 30 tab(s), Refills(s) 3, Pharmacy: [facility] [id number], 172, cm, 08/10/24 10:32:00 EST, Height/Length Dosing, 112, kg, 08/10/24 10:32:00 EST, Weight Dosing Pantoprazole [address] Tab: 40 mg = 1 tab(s), Oral, Daily, X 30 day(s), # 30 tab(s), Refills(s) 0, Pharmacy: [facility] [id number], 172, cm, 08/07/24 9:14:00 EST, Height/Length Dosing, 111.2, kg, 08/07/24 9:14:00 EST, Weight Dosing Phenergan 25 mg Supp: 25 mg = 1 supp, Rectal, q12hr, PRN Nausea/Vomiting, # 60 EA, Refills(s) 6, Pharmacy: [facility] [id number], 173, cm, 06/01/24 9:48:00 EDT, Height/Length Dosing, 111, kg, 06/01/24 9:48:00 EDT, Weight Dosing Reglan 10 mg Tab: 10 mg = 1 tab(s), Oral, q6hr, # 12 tab(s), Refills(s) 0, Pharmacy: [facility] [id number], 173, cm, 06/09/24 2:42:00 EDT, Height/Length Dosing, 115.4, kg, 06/09/24 2:42:00 EDT, Weight Dosing Zofran 4 mg Tab: 4 mg = 1 tab(s), Oral, q8hr, PRN Nausea/Vomiting, # 60 tab(s), Refills(s) 6, Pharmacy: [facility] [id number], 173, cm, 06/01/24 9:48:00 EDT, Height/Length Dosing, 111, kg, 06/01/24 9:48:00 EDT, Weight Dosing Documented Medications Documented Albuterol (Eqv-ProAir HFA) 90 mcg/inh inhalation aerosol: 2 puff(s), Inhalation, q4hr Wheezing, Refill(s) 0 Lantus 100 units/mL Injection-Insulin: 30 unit(s), SubCutaneous, Once a day (at bedtime), Refills(s) 0, High blood sugar MiraLax: 17 gm, Oral, TID, Refill(s) 0 Prozac 40 mg Cap: 40 mg = 1 cap(s), Oral, Daily, at bedtime, Refills(s) 0, Anxiety glipiZIDE 10 mg Tab: 10 mg = 1 tab(s), Oral, BID, Refills(s) 0 hydrOXYzine hydrochloride 25 mg Tab: 25 mg = 1 tab(s), Oral, q6hr, PRN as needed for anxiety, Refills(s) 0 ibuprofen: Refills(s) 0, Home Medications (14) Active Albuterol (Eqv-ProAir HFA) 90 mcg/inh inhalation aerosol 2 puff(s), PRN, Inhalation, q4hr glipiZIDE 10 mg Tab 10 mg = 1 tab(s), Oral, BID hydrOXYzine hydrochloride 25 mg Tab 25 mg = 1 tab(s), PRN, Oral, q6hr Ibgard 90 mg oral delayed release capsule 180 mg = 2 cap(s), PRN, Oral, BID ibuprofen Lantus 100 units/mL Injection-Insulin 30 unit(s), SubCutaneous, Once a day (at bedtime) Linzess 72 mcg oral capsule 72 mcg = 1 cap(s), Oral, Every other day MiraLax 17 gm, Oral, TID Motegrity 2 mg oral tablet 2 mg = 1 tab(s), Oral, Daily Pantoprazole [address] Tab 40 mg = 1 tab(s), Oral, Daily Phenergan 25 mg Supp 25 mg = 1 supp, PRN, Rectal, q12hr Prozac 40 mg Cap 40 mg = 1 cap(s), Oral, Daily Reglan 10 mg Tab 10 mg = 1 tab(s), Oral, q6hr Zofran 4 mg Tab 4 mg = 1 tab(s), PRN, Oral, q8hr , Medications (2) Active Scheduled: (0) Continuous: (2) Lactated Ringers 1,000 mL 1,000 mL, IV, 100 mL/hr Sodium Chloride 0.9% 60 mL 60 mL, IV, 20 mL/hr PRN: (0) Problem list: All Problems Abdominal pain / SNOMED CT 43853044 / Confirmed Abdominal pain, periumbilical / SNOMED CT 6570154511 / Confirmed Acute pancreatitis / SNOMED CT 651298965 / Confirmed Bilateral lower extremity edema / SNOMED CT 2115653238 / Confirmed BMI 37.0-37.9, a (more content not included)...[facility] Comment on above:Result Comment: Electronically Signed By: Joao Kelley Jr., DO\.jarred\Date and Time Signed: 09/02/24 13:37 [id number] NoteProgress Note-Nurse failed franki [facility]12-02-2024 Hospital Discharge instructions Follow Up Care 08/24/2024 12:13:05 With:Aly Beverly Address: [address] [place] [address], [address] [phone] Business (1) When:08/27/2024 17:29:38 With:YOSSI GOLDEN Address: [facility] [place] [address] Business (1) When:Within 3 Day(s) [facility] 12-02-2024 Evaluation + Plan noteExtracted from: Title:ED Note Author:Tom JEONG Student, Papo in Date:08/24/24 Gastroparesis (K31.84: Gastr oparesis) Orders: acetaminophen + Generic Diluent 100 mL, 1,000 mg = 100 mL, IV Piggyback, Once, Stop date 08/24/24 14:46:00 EST, STAT, Start date 08/24/24 14:46:00 EST, 400 mL/hr, Infuse over 15 minute(s), 08/24/24 14:46:00 EST acetaminophen + Generic Diluent 100 mL, 1,000 mg = 100 mL, Soln-IV, IV Piggyback, Once, Stop date 08/24/24 14:48:00 EST, STAT, Start date 08/24/24 14:48:00 EST, 400 mL/hr, Infuse over 15 minute(s) Al hydroxide/Mg hydroxide/simethicone, 30 mL, Susp-Oral, Oral, Once, Stop date 08/24/24 16:32:00 EST, STAT, Start date 08/24/24 16:32:00 EST atropine/hyoscyamine/PB/scopolamine, 10 mL, Elixir, Oral, Once, Stop date 08/24/24 16:32:00 EST, STAT, Start date 08/24/24 16:32:00 EST diphenhydrAMINE, 25 mg = 0.5 mL, Injection, IV, Once, Stop date 08/24/24 16:32:00 EST, STAT, Start date 08/24/24 16:32:00 EST, 08/24/24 16:32:00 EST diphenhydrAMINE, 25 mg = 0.5 mL, Injection, IV, Once, Stop date 08/24/24 12:38:00 EST, STAT, Start date 08/24/24 12:38:00 EST, 08/24/24 12:38:00 EST lidocaine topical, 200 mg, 10 mL, Soln-Oral, Oral, Once, Stop date 08/24/24 16:32:00 EST, STAT, Start date 08/24/24 16:32:00 EST metoclopramide, 10 mg = 2 mL, Injection, IV Push, Once, Stop date 08/24/24 12:37:00 EST, STAT, Start date 08/24/24 12:37:00 EST, 08/24/24 12:37:00 EST morphine, 4 mg = 1 mL, Injection, IV Push, Once, Stop date 08/24/24 14:48:00 EST, STAT, Start date 08/24/24 14:48:00 EST, 08/24/24 14:48:00 EST pantoprazole, 40 mg = 10 mL, Injection, IV Push, Once, Stop date 08/24/24 12:37:00 EST, STAT, Start date 08/24/24 12:37:00 EST, 08/24/24 12:37:00 EST prochlorperazine, = 1 tab(s), Oral, TID, X 7 day(s), # 21 tab(s), Refills(s) 0 prochlorperazine, 10 mg = 1 tab(s), Tab, Oral, Once, Stop date 08/24/24 16:31:00 EST, STAT, Start date 08/24/24 16:31:00 EST, 08/24/24 16:31:00 EST Basic Metabolic Panel CBC w/ Auto Diff eGFR Extra Blue Tube Extra SST Tube Hepatic Function Panel Lipase Level UA with Cult Rflx Future Appointments Appointment Date:09/02/2024 02:15:00 PM Scheduled Provider: Location:[facility] Appointment Type:Surgery FT Appointment Date:09/10/2024 12:00:00 PM Scheduled Provider:Aly Beverly MD Location:[facility] App[facility] Type:[facility] Follow Up Future Scheduled Tests Radiology* NM Gastric Emptying Study 05/25/24 [facility] 11-23-2024 NoteProgress Note-Physician Assessment/Plan 29-year-old female with insulin-dependent diabetes mellitus type 2, gastroparesis, anxiety, GERD, obesity, Leiden factor V deficiency, history of pancreatitis presented with complaints of abdominal pain associated with nausea and vomiting and was admitted with acute flareup of gastroparesis. 1. Gastroparesis (K31.84: Gastroparesis) Acute flareup of gastroparesis. Gastroenterology consult pending. Patient is NPO. Continue on IV Reglan pending gastroenterology evaluation. Ordered: [facility] Hospital Care/Day Moderate 35 Minutes 64123 2. Diabetes (E11.9: Type 2 diabetes mellitus without complications) On long-acting and short-acting insulin. Ordered: [facility] Hospital Care/Day Moderate 35 Minutes 37897 3. Factor V Leiden (D68.51: Activated protein C resistance) Not on anticoagulation chronically. Ordered: [facility] Hospital Care/Day Moderate 35 Minutes [id number] 4. LINA (generalized anxiety disorder) (F41.1: Generalized anxiety disorder) On fluoxetine. Ordered: [facility] Hospital Care/Day Moderate 35 Minutes [id number] 5. GERD (gastroesophageal reflux disease) (K21.9: Gastro-esophageal reflux disease without esophagitis) Pantoprazole. 6. Obese (E66.9: Obesity, unspecified) Recommend therapeutic lifestyle modification changes. Disposition: Pending gastroenterology evaluation. I discussed the diagnosis and plan of care with the patient at the bedside. Moderate level of MDM based on addressing above issues. This documentation was transcribed using voice recognition software. Several attempts were made to ensure accuracy. However inadvertent computerized mechanical commissioning engineer errors may be present. Beatriz Green. Hospitalist. Orders: metoclopramide, 10 mg = 2 mL, Injection, IV Push, QIDACHS for 6 dose(s), Stop date 08/15/24 7:29:00EST, Routine, Start date 08/13/24 16:30:00 EST, 08/13/24 15:56:00 EST Capillary Glucose POC Capillary Glucose POC Capillary Glucose POC Subjective Seen and examined. Feels better this morning with improving nausea. Has not vomited. Only vomits when she eats. She still has some upper abdominal pain. She has not eaten since last night. Objective Vitals & Measurements T: 36.8 ???C(Axillary) TMIN: 36.3 ???C(Oral) TMAX: 37 ???C(Axillary) HR: 75(Monitored) RR: 20 BP: 130/89 SpO2: 97% HT: 172.72 cm WT: 113.3 kg Intake & Output This visit (24 hour periods starting at 07:00 EST) 08/14/24 * 08/13/24 08/12/24 Total Summary Intake mL 4 113.25 -- Output mL -- -- -- Fluid Balance 4 113.25 -- Intake (9) Al hydroxide/Mg hydroxide/simethicone mL -- 30 -- Sodium Chloride 0.9%, promethazine mL -- 51 -- atropine/hyoscyamine/PB/scopolamine mL -- 10 -- diphenhydrAMINE mL -- 0.25 -- famotidine mL 2 2 -- lidocaine topical mL -- 10 -- metoclopramide mL 2 5 -- morphine mL -- 3 -- ondansetron mL -- 2 -- Total 4 113.25 -- Output (0) Counts (0) * This column has not completed the indicated time period. Physical Exam General: alert, no acute distress Skin: warm, dry Head: no trauma, normocephalic Neck: Trachea midline, no adenopathy, no tenderness Eye: normal conjunctiva, sclera clear ENMT: TM's clear, oral mucosa moist, no pharyngeal erythema or exudate Cardiovascular: regular rate and rhythm, normal peripheral perfusion Respiratory: Lungs CTA, respirations non labored Chest wall: no deformity. Gastrointestinal: soft, non distended, no tenderness, no guarding. Obese. Bowel sounds intact. Back: No tenderness, Normal ROM, Normal alignment. Extremities: no deformity, no trauma Neurological: oriented x 4, LOC appropriate for age, CN II-XII intact, motor strength equal & normal bilaterally, sensation equal & normal bilaterally, speech normal Psychiatric: cooperative, affect appropriate for age, normal judgement, normal psychiatric thoughts. Lab Results WBC: 6.9 E9/L (08/14/24 06:02:00) RBC: 4.7 E12/L (08/14/24 06:02:00) HGB: 13.9 gm/dL (08/14/24 06:02:00) Hct: 40.8 % (08/14/24 06:02:00) MCV: 86.1 fL (08/14/24 06:02:00) MCH: 29.2 pg (08/14/24 06:02:00) MCHC: 34 gm/dL (08/14/24 06:02:00) RDW: 14.1 % (08/14/24 06:02:00) Platelet: 290 E9/L (08/14/24 06:02:00) MPV: 7.9 fL (08/14/24 06:02:00) Neutro Auto: 54.8 % (08/14/24 06:02:00) Lymph Auto: 35.8 % (08/14/24 06:02:00) [place] Auto: 6.3 % (08/14/24 06:02:00) Eos Auto: 2.1 % (08/14/24 06:02:00) Basophil Auto: 1 % (08/14/24 06:02:00) Neutro Absolute: 3.8 E9/L (08/14/24 06:02:00) Lymph Absolute: 2.5 E9/L (08/14/24 06:02:00) [place] Absolute: 0.4 E9/L (08/14/24 06:02:00) Eos Absolute: 0.1 E9/L (08/14/24 06:02:00) Basophil Absolute: 0.1 E9/L (08/14/24 06:02:00) Glucose Lvl: 162 mg/dL (08/14/24 06:02:00) BUN: 11 mg/dL (08/14/24 06:02:00) Creatinine: 1 mg/dL (08/14/24 06:02:00) eGFR: 78 mL/min/1.73 m2 (08/14/24 06:02:00) BUN/Creat Ratio: 11 (08/14/24 06:02:00) Sodium Lvl: 139 (more content not included)...[facility] Institute[facility] on above:Result Comment: Electronically Signed By: BENI GREWAL, Beatriz\.br\Date and Time Signed: 08/15/24 13:04 [id number] NoteInterdisciplinary Note - Nursing The patient left against medical advice (AMA), signed the appropriate form, and was discharged in stable condition.[facility]11-22-2024 Evaluation + Plan noteExtracted from: Title:Inpatient Consultation -Floor Code* Author:Beto GREWAL, [facility] Date:08/14/24 Impression and Plan This is a 29-year-old lady with past medical history of diabetes mellitus, GERD, morbid obesity, gastroparesis (37% residual on 4 hours solid GES) who presented to the hospital with worsening nausea She was seen recently in clinic with me for similar symptoms, nausea no vomiting, she also reported constipation, we tried to get Motegrity as an outpatient to help with both constipation gastroparesis, was not approved by insurance I recommended Linzess instead to help with constipation Patient presented to the hospital with nausea, no vomiting, similar symptoms that she had in clinic, given the severity of the nausea she decided to come to the ED, last bowel movements with 2 days ago KUB was done in the ED, nonobstructive pattern, reviewed the image, significant amount of stool burden in the colon Overall usually constipations make gastroparesis symptoms worse Recommendations -Gastroparesis diet, advance diet as tolerated -Zofran and Phenergan as needed before meals -Avoids narcotics as much as possible -MiraLAX and bowel regimen to help with constipation -Can try Linzess as an outpatient, we can revisit Motegrity with preauthorization for insurance, my office will arrange -Ultimately she may need a referral to [facility] for G-POEM procedure -She is scheduled for EGD as an outpatient, no need for urgent EGD at this point Extracted from: Title:APSO Note Author:BENI GREWAL, Mbanefo Date:10/14/23 29-year-old female with insu luan-dependent diabetes mellitus type 2, gastroparesis, anxiety, GERD, obesity, Leiden factor V deficiency, history of pancreatitis presented with complaints of abdominal pain associated with nausea and vomiting and was admitted with acute flareup of gastroparesis. 1. Gastroparesis (K31.84: Gastroparesis) Acute flareup of gastroparesis. Gastroenterology consult pending. Patient is NPO. Continue on IV Reglan pending gastroenterology evaluation. Ordered: [facility] Hospital Care/Day Moderate 35 Minutes [id number] 2. Diabetes (E11.9: Type 2 diabetes mellitus without complications) On long-acting and short-acting insulin. [facility] 35 Minutes [id number] 3. Factor V Leiden (D68.51: Activated protein C resistance) Not on anticoagulation chronically. Ordered: [facility] Hospital Care/Day Moderate 35 Minutes 55539 4. LINA (generalized anxiety disorder) (F41.1: Generalized anxiety disorder) On fluoxetine. Ordered: [facility] Hospital Care/Day Moderate 35 Minutes [id number] 5. GERD (gastroesophageal reflux disease) (K21.9: Gastro-esophageal reflux disease without esophagitis) Pantoprazole. 6. Obese (E66.9: Obesity, unspecified) Recommend therapeutic lifestyle modification changes. Disposition: Pending gastroenterology evaluation. I discussed the diagnosis and plan of care with the patient at the bedside. Moderate level of MDM based on addressing above issues. This documentation was transcribed using voice recognition software. Several attempts were made to ensure accuracy. However inadvertent computerized mechanical commissioning engineer errors may be present. Beatriz Green. Hospitalist. Orders: metoclopramide, 10 mg = 2 mL, Injection, IV Push, QIDACHS for 6 dose(s), Stop date 08/15/24 7:29:00 EST, Routine, Start date 08/13/24 16:30:00 EST, 08/13/24 15:56:00 EST Capillary Glucose POC Capillary Glucose POC Capillary Glucose POC Addendum by Cris GREEN MD on August 14, 2024 12:14:53 EST I spoke with city weighmaster advised no plans for EGD. Patient can be started on clear liquid diet and advance as tolerated. Patient was made aware. Extracted from: Title:Admission H & P Author:Lovely Parson Date:08/13/24 1. Gastroparesis (K31.84: Ga stroparesis) - Adm observation - Continue home Motegrity, Reglan once home med rec is completed - IVP Zofran - C/S GI - we appreciate Dr Beverly's assistance with this pt's care - clear liquid diet for now pending GI eval 2. Diabetes (E11.9: Type 2 diabetes mellitus without complications) - Continue home Lantus at reduced dose while on clear liq diet - ACHS glucometer checks - SSI for glucose correction 3. Factor V Leiden (D68.51: Activated protein C resistance) - Pt is not on anticoagulation at home - SCDs and Lovenox for DVT prevention 4. LINA (generalized anxiety disorder) (F41.1: Generalized anxiety disorder) Continue home hydroxyzine once home med rec is completed 5. GERD (gastroesophageal reflux disease) (K21.9: Gastro-esophageal reflux disease without esophagitis) - IVP PPI daily Orders: acetaminophen + Generic Diluent 100 mL, 1,000 mg = 100 mL, IV Piggyback, q8hr PRN Pain 4-7, Routine, Start date 08/13/24 14:24:00 EST, 400 mL/hr, Infuse over 15 minute(s), 08/13/24 14:24:00 EST enoxaparin, 40 mg = 0.4 mL, Injection, SubCutaneous, BID for 30 day(s), Stop date 09/12/24 20:59:00 EST, Routine, Start date 08/13/24 21:00:00 EST, 08/13/24 14:24:00 EST glucose, 50 mL, Soln-IV, IV Push, Once PRN Blood glucose, Routine, Start date 08/13/24 14:23:00 EST hydrALAZINE, 10 mg = 0.5 mL, Injection, IV Push, q6hr PRN Other (see comment), Routine, Start date 08/13/24 14:24:00 EST, 08/13/24 14:24:00 EST insulin glargine, 20 unit(s), Injection-Insulin, SubCutaneous, Bedtime, Routine, Start date 08/13/24 21:00:00 EST, 08/13/24 14:26:00 EST insulin lispro, 0-10 Unit(s), Injection-Insulin, SubCutaneous, QIDACHS, Routine, Start date 08/13/24 16:30:00 EST metoclopramide, 10 mg = 2 tab(s), Tab, Oral, QIDACHS, Routine, Start date 08/13/24 16:30:00 EST, 08/13/24 14:24:00 EST nicotine, 14 mg, 1 patch(es), Patch-ER, TransDermal, Daily, Routine, Start date 08/14/24 9:00:00 EST ondansetron, 4 mg = 2 mL, Injection, IV Push, q6hr PRN Nausea, Routine, Start date 08/13/24 14:24:00 EST, 08/13/24 14:24:00 EST senna, 17.2 mg = 2 tab(s), Tab, Oral, BID PRN Other (see comment), Routine, Start date 08/13/24 14:24:00 EST, 08/13/24 14:24:00 EST Activity As Tolerated Ambulate with Assistance Basic Metabolic Panel Below the Knee Intermittent Pneumatic Compression Device CBC w/ Auto Diff Clear Liquid Diet Consult to Gastroenterology Hypoglycemia Protocol Responsive Patient Hypoglycemia Protocol Unresponsive Patient Intake and Output Notify Provider Vital Signs Notify Provider Vital Signs Resuscitation Status - Full Routine Capillary Glucose POC Vital Signs Weight Addendum by Juan ARZATE, Steve ther A on August 13, 2024 17:21:55 EST Spouse reports that the pt has an outpatient endoscopy scheduled in August and is wondering if it can be done now. I defer this decision to the GI team, but will make the pt NPO after midnight in case they would like to take her for endoscopy in the morning. Extracted from: Title:ED Note Author:Cameron Conklin DO Date:1 10/13/23 1. Gastroparesis (K31.84: Ga stroparesis) 2. Diabetes (E11.9: Type 2 diabetes mellitus without complications) 3. Factor V Leiden (D68.51: Activated protein C resistance) 4. LINA (generalized anxiety disorder) (F41.1: Generalized anxiety disorder) 5. GERD (gastroesophageal reflux disease) (K21.9: Gastro-esophageal reflux disease without esophagitis) Orders: Al hydroxide/Mg hydroxide/simethicone, 30 mL, Susp-Oral, Oral, Once, Stop date 08/13/24 9:14:00 EST, STAT, Start date 08/13/24 9:14:00 EST atropine/hyoscyamine/PB/scopolamine, 10 mL, Elixir, Oral, Once, Stop date 08/13/24 9:14:00 EST, STAT, Start date 08/13/24 9:14:00 EST dicyclomine, 20 mg = 2 mL, Injection, IntraMuscular, Once, Stop date 08/13/24 9:13:00 EST, STAT, Start date 08/13/24 9:13:00 EST, 08/13/24 9:13:00 EST diphenhydrAMINE, 12.5 mg = 0.25 mL, Injection, IV Push, Once, Stop date 08/13/24 10:35:00 EST, STAT, Start date 08/13/24 10:35:00 EST, 08/13/24 10:35:00 EST famotidine, 20 mg = 2 mL, Soln-IV, IV Push, Daily, STAT, Start date 08/13/24 9:14:00 EST, Infuse over 2 minute(s), 08/13/24 9:14:00 EST lidocaine topical, 200 mg, 10 mL, Soln-Oral, Oral, Once, Stop date 08/13/24 9:14:00 EST, STAT, Start date 08/13/24 9:14:00 EST metoclopramide, 5 mg = 1 mL, Injection, IV Push, Once, Stop date 08/13/24 10:36:00 EST, STAT, Start date 08/13/24 10:36:00 EST, 08/13/24 10:36:00 EST morphine, 4 mg = 1 mL, Injection, IV Push, Once, Stop date 08/13/24 12:29:00 EST, STAT, Start date 08/13/24 12:29:00 EST, 08/13/24 12:29:00 EST morphine, 4 mg = 1 mL, Injection, IV Push, Once, Stop date 08/13/24 10:35:00 EST, STAT, Start date 08/13/24 10:35:00 EST, 08/13/24 10:35:00 EST promethazine 25 mg + Sodium Chloride 0.9% intravenous solution 50 mL, Injection, IV Piggyback, Once, Stop date 08/13/24 9:14:00 EST, STAT, Start date 08/13/24 9:14:00 EST, 153 mL/hr, Infuse over 20 minute(s) Basic Metabolic Panel Beta hCG Qual CBC w/ Auto Diff ED Cardiac Monitoring eGFR Extra Blue Tube Hepatic Function Panel Lipase Level Saline Lock Insert UA with Cult Rflx XR Abdomen Series w/ Chest 1 View Future Appointments Appointment Date:09/02/2024 02:15:00 PM Scheduled Provider: Location:[facility] Appointment Type:Surgery Appointment Date:09/10/2024 12:00:00 PM Scheduled Provider:Aly Beverly MD Location:[facility] Appoint[facility] Type:[facility] Follow Up Future Scheduled Tests Radiology* NM Gastric Emptying Study 05/25/24 [facility] [place] 11-22-2024 NoteConsultation Note Patient: GAEL RUBY Age: 29 years Sex: Female : 1995 Associated Diagnoses: None Author: Beto GREWAL, Aly Whitten Basic Information Gastroparesis History of Present Illness This is a 29-year-old lady with past medical history of diabetes mellitus, GERD, morbid obesity, gastroparesis (37% residual on 4 hours solid GES) who presented to the hospital with worsening nausea She was seen recently in clinic with me for similar symptoms, nausea no vomiting, she also reportedconstipation, we tried to get Motegrity as an outpatient to help with both constipation gastroparesis, was not approved by insurance I recommended Linzess instead to help with constipation Patient presented to the hospital with nausea, no vomiting, similar symptoms that she had in clinic, given the severity of the nausea she decided to come to the ED, last bowel movements with 2 days ago Health Status Current medications: (Selected) Inpatient Medications Ordered Dextrose 50% Soln-IV: 50 mL, Soln-IV, IV Push, Once PRN Blood glucose, Routine, Start date 08/13/2414:23:00 EST FLUoxetine 20 mg Cap: 40 mg = 2 cap(s), Cap, Oral, Bedtime, Routine, Start date 08/13/24 21:00:00 EST Insulin Lispro Sliding Scale: 0-10 Unit(s), Injection-Insulin, SubCutaneous, QIDACHS, Routine, Start date 08/13/24 16:30:00 EST Motegrity 2 mg oral tablet: Motegrity 2 mg oral tablet, Tab, Oral, Daily, Routine, Start date 08/14/24 9:00:00 EST Pantoprazole [address] Tab: 40 mg = 1 tab(s), Tab-DR, Oral, Daily, Routine, Start date 08/14/24 9:00:00 EST Phenergan 25 mg Supp: 25 mg = 1 supp, Supp, Rectal, q12hr PRN Nausea/Vomiting, Routine, Start date 08/13/24 16:54:00 EST, 08/13/24 16:54:00 EST Senokot 8.6 mg Tab: 17.2 mg = 2 tab(s), Tab, Oral, BID PRN Other (see comment), Routine, Start date08/13/24 14:24:00 EST Zofran 4 mg/2 mL Injection: 4 mg = 2 mL, Injection, IV Push, q6hr PRN Nausea, Routine, Start date 08/13/24 14:24:00 EST, 08/13/24 14:24:00 EST acetaminophen additive + Generic Diluent 100 mL: 1,000 mg = 100 mL, Soln-IV, IV Piggyback, q8hr PRNPain 4-7, Routine, Start date 08/13/24 14:24:00 EST, 400 mL/hr, Infuse over 15 minute(s) enoxaparin 40 mg/0.4 mL SC Deniz: 40 mg = 0.4 mL, Injection, SubCutaneous, BID for 30 day(s), Stop date 09/12/24 20:59:00 EST, Routine, Start date 08/13/24 21:00:00 EST famotidine 10 mg/mL IV Deniz: 20 mg = 2 mL, Soln-IV, IV Push, Daily, STAT, Start date 08/13/24 9:14:00 EST, Infuse over 2 minute(s), 08/13/24 9:14:00 EST hydrALAZINE 20 mg/mL Inj: 10 mg = 0.5 mL, Injection, IV Push, q6hr PRN Other (see comment), Routine, Start date 08/13/24 14:24:00 EST, 08/13/24 14:24:00 EST hydrOXYzine hydrochloride 25 mg Tab: 25 mg = 1 tab(s), Tab, Oral, q6hr PRN Anxiety, Routine, Start date 08/13/24 16:52:00 EST, 08/13/24 16:52:00 EST insulin glargine 100 units/mL SubQ Deniz 10 mL: 20 unit(s) = 0.2 mL, Injection- Insulin, SubCutaneous,Bedtime, Routine, Start date 08/13/24 21:00:00 EST metoclopramide 5 mg/mL Inj: 10 mg = 2 mL, Injection, IV Push, QIDACHS for 6 dose(s), Stop date 08/15/24 7:29:00 EST, Routine, Start date 08/13/24 16:30:00 EST, 08/13/24 15:56:00 EST morphine 2 mg/mL Inj: 2 mg = 1 mL, Injection, IV Push, q4hr PRN Pain for 5 day(s), Stop date 08/18/24 16:55:00 EST, Routine, Start date 08/13/24 16:56:00 EST, 08/13/24 16:56:00 EST nicotine 14 mg/24 hr Transderm ER Film: 14 mg, 1 patch(es), Patch-ER, TransDermal, Bedtime, Routine, Start date 08/13/24 21:00:00 EST remove patch: 1 patch(es), Patch, Topical, Bedtime, 08/14/24 21:00:00 EST Prescriptions Prescribed Ibgard 90 mg oral delayed release capsule: 180 mg = 2 cap(s), Oral, BID, PRN abdominal pain/cramps,# 12 cap(s), Refills(s) 0, samples given to patient (Rx) Linzess 72 mcg oral capsule: 72 mcg = 1 cap(s), Oral, Every other day, X 90 day(s), # 45 cap(s), Refills(s) 0, Pharmacy: [facility] [id number], 172, cm, 08/13/24 9:03:00 EST, Height/Length Dosing,112, kg, 08/13/24 9:03:00 EST, Weight Dosing Motegrity 2 mg oral tablet: 2 mg = 1 tab(s), Oral, Daily, # 30 tab(s), Refills(s) 3, Pharmacy: [facility] [id number], 172, cm, 08/10/24 10:32:00 EST, Height/Length Dosing, 112, kg, 08/10/24 10:32:00 EST, Weight Dosing Pantoprazole [address] Tab: 40 mg = 1 tab(s), Oral, Daily, X 30 day(s), # 30 tab(s), Refills(s) 0, Pharmacy: [facility] [id number], 172, cm, 08/07/24 9:14:00 EST, Height/Length Dosing, 111.2, kg, 08/07/24 9:14:00 EST, Weight Dosing Phenergan 25 mg Supp: 25 mg = 1 supp, Rectal, q12hr, PRN Nausea/Vomiting, # 60 EA, Refills(s) 6, Pharmacy: [facility] [id number], 173, cm, 06/01/24 9:48:00 EDT, Height/Length Dosing, 111, kg, 06/01/24 9:48:00 EDT, Weight Dosing Reglan 10 mg Tab: 10 mg = 1 tab(s), Oral, q6hr, # 12 tab(s), Refills(s) 0, Pharmacy: [facility] [id number], 173, cm, 06/09/24 2:42:00 EDT, Height/Length Dosing, 115.4, kg, 06/09/24 2:42:00 EDT, Weight Dosing Zofran 4 mg Tab: 4 mg = 1 tab(s), Oral, q8hr, PRN Nausea/Vomiting, # 60 t (more content not included)...[facility] InstituteComment on above:Result Comment: Electronically Signed By: Beto GREWAL, Aly Whitten\.br\Date and Time Signed: 08/14/24 13:03 [id number] NoteProgress Note-Physician Assessment/Plan 29-year-old female with insulin-dependent diabetes mellitus type 2, gastroparesis, anxiety, GERD, obesity, Leiden factor V deficiency, history of pancreatitis presented with complaints of abdominal pain associated with nausea and vomiting and was admitted with acute flareup of gastroparesis. 1. Gastroparesis (K31.84: Gastroparesis) Acute flareup of gastroparesis. Gastroenterology consult pending. Patient is NPO. Continue on IV Reglan pending gastroenterology evaluation. Ordered: [facility] Hospital Care/Day Moderate 35 Minutes [id number] 2. Diabetes (E11.9: Type 2 diabetes mellitus without complications) On long-acting and short-acting insulin. Ordered: [facility] Hospital Care/Day Moderate 35 Minutes [id number] 3. Factor V Leiden (D68.51: Activated protein C resistance) Not on anticoagulation chronically. Ordered: [facility] Hospital Care/Day Moderate 35 Minutes [id number] 4. LINA (generalized anxiety disorder) (F41.1: Generalized anxiety disorder) On fluoxetine. Ordered: [facility] Hospital Care/Day Moderate 35 Minutes [id number] 5. GERD (gastroesophageal reflux disease) (K21.9: Gastro-esophageal reflux disease without esophagitis) Pantoprazole. 6. Obese (E66.9: Obesity, unspecified) Recommend therapeutic lifestyle modification changes. Disposition: Pending gastroenterology evaluation. I discussed the diagnosis and plan of care with the patient at the bedside. Moderate level of MDM based on addressing above issues. This documentation was transcribed using voice recognition software. Several attempts were made to ensure accuracy. However inadvertent computerized mechanical commissioning engineer errors may be present. Beatriz Green. Hospitalist. Orders: metoclopramide, 10 mg = 2 mL, Injection, IV Push, QIDACHS for 6 dose(s), Stop date 08/15/24 7:29:00EST, Routine, Start date 08/13/24 16:30:00 EST, 08/13/24 15:56:00 EST Capillary Glucose POC Capillary Glucose POC Capillary Glucose POC Subjective Seen and examined. Feels better this morning with improving nausea. Has not vomited. Only vomits when she eats. She still has some upper abdominal pain. She has not eaten since last night. Objective Vitals & Measurements T: 36.8 ???C(Axillary) TMIN: 36.3 ???C(Oral) TMAX: 37 ???C(Axillary) HR: 75(Monitored) RR: 20 BP: 130/89 SpO2: 97% HT: 172.72 cm WT: 113.3 kg Intake & Output This visit (24 hour periods starting at 07:00 EST) 08/14/24 * 08/13/24 08/12/24 Total Summary Intake mL 4 113.25 -- Output mL -- -- -- Fluid Balance 4 113.25 -- Intake (9) Al hydroxide/Mg hydroxide/simethicone mL -- 30 -- Sodium Chloride 0.9%, promethazine mL -- 51 -- atropine/hyoscyamine/PB/scopolamine mL -- 10 -- diphenhydrAMINE mL -- 0.25 -- famotidine mL 2 2 -- lidocaine topical mL -- 10 -- metoclopramide mL 2 5 -- morphine mL -- 3 -- ondansetron mL -- 2 -- Total 4 113.25 -- Output (0) Counts (0) * This column has not completed the indicated time period. Physical Exam General: alert, no acute distress Skin: warm, dry Head: no trauma, normocephalic Neck: Trachea midline, no adenopathy, no tenderness Eye: normal conjunctiva, sclera clear ENMT: TM's clear, oral mucosa moist, no pharyngeal erythema or exudate Cardiovascular: regular rate and rhythm, normal peripheral perfusion Respiratory: Lungs CTA, respirations non labored Chest wall: no deformity. Gastrointestinal: soft, non distended, no tenderness, no guarding. Obese. Bowel sounds intact. Back: No tenderness, Normal ROM, Normal alignment. Extremities: no deformity, no trauma Neurological: oriented x 4, LOC appropriate for age, CN II-XII intact, motor strength equal & normal bilaterally, sensation equal & normal bilaterally, speech normal Psychiatric: cooperative, affect appropriate for age, normal judgement, normal psychiatric thoughts. Lab Results WBC: 6.9 E9/L (08/14/24 06:02:00) RBC: 4.7 E12/L (08/14/24 06:02:00) HGB: 13.9 gm/dL (08/14/24 06:02:00) Hct: 40.8 % (08/14/24 06:02:00) MCV: 86.1 fL (08/14/24 06:02:00) MCH: 29.2 pg (08/14/24 06:02:00) MCHC: 34 gm/dL (08/14/24 06:02:00) RDW: 14.1 % (08/14/24 06:02:00) Platelet: 290 E9/L (08/14/24 06:02:00) MPV: 7.9 fL (08/14/24 06:02:00) Neutro Auto: 54.8 % (08/14/24 06:02:00) Lymph Auto: 35.8 % (08/14/24 06:02:00) [place] Auto: 6.3 % (08/14/24 06:02:00) Eos Auto: 2.1 % (08/14/24 06:02:00) Basophil Auto: 1 % (08/14/24 06:02:00) Neutro Absolute: 3.8 E9/L (08/14/24 06:02:00) Lymph Absolute: 2.5 E9/L (08/14/24 06:02:00) [place] Absolute: 0.4 E9/L (08/14/24 06:02:00) Eos Absolute: 0.1 E9/L (08/14/24 06:02:00) Basophil Absolute: 0.1 E9/L (08/14/24 06:02:00) Glucose Lvl: 162 mg/dL (08/14/24 06:02:00) BUN: 11 mg/dL (08/14/24 06:02:00) Creatinine: 1 mg/dL (08/14/24 06:02:00) eGFR: 78 mL/min/1.73 m2 (08/14/24 06:02:00) BUN/Creat Ratio: 11 (08/14/24 06:02:00) Sodium Lvl: 139 (more content not included)...[facility] InstituteComment on above:Result Comment: Electronically Signed By: BENI GREWAL, Beatriz\.br\Date and Time Signed: 08/14/24 12:15 [id number] NoteProgress Note-Physician Assessment/Plan 29-year-old female with insulin-dependent diabetes mellitus type 2, gastroparesis, anxiety, GERD, obesity, Leiden factor V deficiency, history of pancreatitis presented with complaints of abdominal pain associated with nausea and vomiting and was admitted with acute flareup of gastroparesis. 1. Gastroparesis (K31.84: Gastroparesis) Acute flareup of gastroparesis. Gastroenterology consult pending. Patient is NPO. Continue on IV Reglan pending gastroenterology evaluation. Ordered: Sbsq Hospital Care/Day Moderate 35 Minutes 28235 2. Diabetes (E11.9: Type 2 diabetes mellitus without complications) On long-acting and short-acting insulin. Ordered: Sbsq Hospital Care/Day Moderate 35 Minutes 07525 3. Factor V Leiden (D68.51: Activated protein C resistance) Not on anticoagulation chronically. Ordered: Sbsq Hospital Care/Day Moderate 35 Minutes 55151 4. LINA (generalized anxiety disorder) (F41.1: Generalized anxiety disorder) On fluoxetine. Ordered: Sbsq Hospital Care/Day Moderate 35 Minutes [id number] 5. GERD (gastroesophageal reflux disease) (K21.9: Gastro-esophageal reflux disease without esophagitis) Pantoprazole. 6. Obese (E66.9: Obesity, unspecified) Recommend therapeutic lifestyle modification changes. Disposition: Pending gastroenterology evaluation. I discussed the diagnosis and plan of care with the patient at the bedside. Moderate level of MDM based on addressing above issues. This documentation was transcribed using voice recognition software. Several attempts were made to ensure accuracy. However inadvertent computerized mechanical commissioning engineer errors may be present. Beatriz Green. Hospitalist. Orders: metoclopramide, 10 mg = 2 mL, Injection, IV Push, QIDACHS for 6 dose(s), Stop date 08/15/24 7:29:00EST, Routine, Start date 08/13/24 16:30:00 EST, 08/13/24 15:56:00 EST Capillary Glucose POC Capillary Glucose POC Capillary Glucose POC Subjective Seen and examined. Feels better this morning with improving nausea. Has not vomited. Only vomits when she eats. She still has some upper abdominal pain. She has not eaten since last night. Objective Vitals & Measurements T: 36.8 ???C(Axillary) TMIN: 36.3 ???C(Oral) TMAX: 37 ???C(Axillary) HR: 75(Monitored) RR: 20 BP: 130/89 SpO2: 97% HT: 172.72 cm WT: 113.3 kg Intake & Output This visit (24 hour periods starting at 07:00 EST) 08/14/24 * 08/13/24 08/12/24 Total Summary Intake mL 4 113.25 -- Output mL -- -- -- Fluid Balance 4 113.25 -- Intake (9) Al hydroxide/Mg hydroxide/simethicone mL -- 30 -- Sodium Chloride 0.9%, promethazine mL -- 51 -- atropine/hyoscyamine/PB/scopolamine mL -- 10 -- diphenhydrAMINE mL -- 0.25 -- famotidine mL 2 2 -- lidocaine topical mL -- 10 -- metoclopramide mL 2 5 -- morphine mL -- 3 -- ondansetron mL -- 2 -- Total 4 113.25 -- Output (0) Counts (0) * This column has not completed the indicated time period. Physical Exam General: alert, no acute distress Skin: warm, dry Head: no trauma, normocephalic Neck: Trachea midline, no adenopathy, no tenderness Eye: normal conjunctiva, sclera clear ENMT: TM's clear, oral mucosa moist, no pharyngeal erythema or exudate Cardiovascular: regular rate and rhythm, normal peripheral perfusion Respiratory: Lungs CTA, respirations non labored Chest wall: no deformity. Gastrointestinal: soft, non distended, no tenderness, no guarding. Obese. Bowel sounds intact. Back: No tenderness, Normal ROM, Normal alignment. Extremities: no deformity, no trauma Neurological: oriented x 4, LOC appropriate for age, CN II-XII intact, motor strength equal & normal bilaterally, sensation equal & normal bilaterally, speech normal Psychiatric: cooperative, affect appropriate for age, normal judgement, normal psychiatric thoughts. Lab Results WBC: 6.9 E9/L (08/14/24 06:02:00) RBC: 4.7 E12/L (08/14/24 06:02:00) HGB: 13.9 gm/dL (08/14/24 06:02:00) Hct: 40.8 % (08/14/24 06:02:00) MCV: 86.1 fL (08/14/24 06:02:00) MCH: 29.2 pg (08/14/24 06:02:00) MCHC: 34 gm/dL (08/14/24 06:02:00) RDW: 14.1 % (08/14/24 06:02:00) Platelet: 290 E9/L (08/14/24 06:02:00) MPV: 7.9 fL (08/14/24 06:02:00) Neutro Auto: 54.8 % (08/14/24 06:02:00) Lymph Auto: 35.8 % (08/14/24 06:02:00) Lehigh Auto: 6.3 % (08/14/24 06:02:00) Eos Auto: 2.1 % (08/14/24 06:02:00) Basophil Auto: 1 % (08/14/24 06:02:00) Neutro Absolute: 3.8 E9/L (08/14/24 06:02:00) Lymph Absolute: 2.5 E9/L (08/14/24 06:02:00) Lehigh Absolute: 0.4 E9/L (08/14/24 06:02:00) Eos Absolute: 0.1 E9/L (08/14/24 06:02:00) Basophil Absolute: 0.1 E9/L (08/14/24 06:02:00) Glucose Lvl: 162 mg/dL (08/14/24 06:02:00) BUN: 11 mg/dL (08/14/24 06:02:00) Creatinine: 1 mg/dL (08/14/24 06:02:00) eGFR: 78 mL/min/1.73 m2 (08/14/24 06:02:00) BUN/Creat Ratio: 11 (08/14/24 06:02:00) Sodium Lvl: 139 (more content not included)...[facility] InstituteComment on above:Result Comment: Electronically Signed By: BENI GREWAL, Beatriz\.br\Date and Time Signed: 08/14/24 09:31 [id number] NoteHistory and Physical Basic Information Time of exam: 1300 Chief Complaint abdominal pain, nausea started 0630 this am History of Present Illness This is a 29-year-old female patient with a past medical history as outlined below including DM2, chronic gastroparesis, anxiety, GERD, and factor V Leiden; who presented to the ED complaining of increased nausea and vomiting and abdominal pain since 630 this morning. Patient reports her symptoms are typical for a gastroparesis flare she took her usual home medications prescribed by GI without relief and presented to the ED for further evaluation. Workup in the ED was essentially benign except for hyperglycemia (244) on labs. She has a mildly elevated lipase (80) which is consistent with her chronic baseline. Abdominal and chest x-rays were unremarkable and no evidence of obstruction was noted. She is being admitted to the hospitalist service in observation for symptom management and specialty GI consult. At the time of my exam the patient is resting comfortably in in ED cart. She denies chest pain, shortness of breath, dizziness, headache, or any other acute complaint except as noted above. We discussed avoiding opioids for pain management as these could worsen her gastroparesis and bowel transit problem. The patient verbalizes understanding. Review of Systems All systems reviewed and are negative except as noted in her HPI Scoring Thomson Fall Risk Score: 35 (08/13/24) Physical Exam Vitals & Measurements T: 36.6 ???C(Oral) HR: 74(Monitored) RR: 14 BP: 123/81 SpO2: 94% HT: 172 cm WT: 112 kg General: alert, no acute distress Skin: warm, dry Head: no trauma, normocephalic Neck: Trachea midline, no adenopathy, no tenderness Eye: normal conjunctiva, sclera clear ENMT: TM's clear, oral mucosa moist, no pharyngeal erythema or exudate Cardiovascular: regular rate and rhythm, normal peripheral perfusion Respiratory: Lungs expiratory wheezes faint KEVIN, respirations non labored Chest wall: no deformity. Gastrointestinal: soft, non distended, no tenderness, no guarding. Back: No tenderness, Normal ROM, Normal alignment. Extremities: no deformity, no trauma Neurological: oriented x 4, LOC appropriate for age, CN II-XII intact, motor strength equal & normal bilaterally, sensation equal & normal bilaterally, speech normal Psychiatric: cooperative, affect appropriate for age, normal judgement, normal psychiatric thoughts. Lab Results WBC: 10.3 E9/L (08/13/24 09:31:00) RBC: 4.9 E12/L (08/13/24 09:31:00) HGB: 15.1 gm/dL (08/13/24 09:31:00) Hct: 42.3 % (08/13/24 09:31:00) MCV: 86.1 fL (08/13/24 09:31:00) MCH: 30.7 pg (08/13/24::00) MCHC: 35.6 gm/dL (08/13/24:31:00) RDW: 13.6 % (08/13/24:31:00) Platelet: 342 E9/L (08/13/24::00) MPV: 8.7 fL (08/13/24::00) Neutro Auto: 68.8 % (08/13/24 09:31:00) Lymph Auto: 24.8 % (08/13/24 09:31:00) Lehigh Auto: 3.9 % Low (08/13/24 09:31:00) Eos Auto: 1.3 % (08/13/24:) Basophil Auto: 1.2 % (08/13/24::) Neutro Absolute: 7.1 E9/L (08/13/24) Lymph Absolute: 2.5 E9/L (08/13/24) Lehigh Absolute: 0.4 E9/L (08/13/24::) Eos Absolute: 0.1 E9/L (08/13/24) Basophil Absolute: 0.1 E9/L (08/13/24:) Glucose Lvl: 244 mg/dL High (08/13/24) BUN: 11 mg/dL (08/13/24) Creatinine: 0.8 mg/dL (08/13/24) eGFR: 102 mL/min/1.73 m2 (08/13/24) BUN/Creat Ratio: 14 (08/13/24) Sodium Lvl: 139 mmol/L (08/13/24) Potassium Lvl: 4 mmol/L (08/13/24:) Chloride: 105 mmol/L (08/13/24) CO2: 24 mmol/L (08/13/24:) AGAP: 14 mEq/L (08/13/24:) Calcium Lvl: 9.5 mg/dL (08/13/24::) Alk Phos: 85 Int._Unit/L (08/13/24::) ALT: 34 Int._Unit/L (08/13/24::) AST: 29 Int._Unit/L (08/13/24::) Total Protein: 7.4 gm/dL (08/13/24::) Albumin Lvl: 4.3 gm/dL (08/13/24::) Globulin: 3.1 gm/dL (08/13/24::00) A/G Ratio: 1.4 (08/13/24::00) Bili Total: 0.4 mg/dL (08/13/24 09:31:00) Bili Direct: 0 mg/dL (08/13/24 09:31:00) Bili Indirect: 0.4 mg/dL (08/13/24 09:31:00) Lipase Lvl: 80 unit/L High (08/13/24 09:31:00) UA Spec Desc: Clean Catch (08/13/24 09:22:00) UA Color: Colorless Abnormal (08/13/24 09:22:00) UA Clarity: Clear (08/13/24 09:22:00) UA Spec Grav: 1.036 (08/13/24 09:22:00) UA pH: 5.5 (08/13/24 09:22:00) UA Protein: Negat (08/13/24 09:22:00) UA Glucose: 4+ Abnormal (08/13/24 09:22:00) UA Ketones: Negat (08/13/24 09:22:00) UA Bili: Negat (08/13/24 09:22:00) UA Blood: Negat (08/13/24 09:22:00) UA Nitrite: Negat (08/13/24 09:22:00) UA Urobilinogen: Negat (08/13/24 09:22:00) UA Leuk Est: Negat (08/13/24 09:22:00) Beta hCG Ql: NEGATIVE1 (08/13/24 09:31:00) Assessment/Plan 1. Gastroparesis (K31.84: Gastroparesis) - Adm observation - Continue home Motegrity, Reglan once home med rec is completed - IVP Zofran - C/S GI - we apprecia (more content not included)...[facility] Comment on above:Result Comment: Electronically Signed By: Darlene Parson\.br\Date and Time Signed: 08/13/2417:23 EST\.br\Electronically Co-Signed By: BENI GREWAL, Beatriz\.br\Date and Time Co-Signed: 08/13/2417:40 [id number] History of Present illness Narrative* Yossi Golden MD - 08/11/2024 12:17 PM EST Associated Problem(s): Nonalcoholic fatty liver Follow with GI. * Yossi Golden MD - 08/11/2024 12:17 PM ESTAssociated Problem(s): Class 2 severe obesity due to excess calories with serious comorbidity and body mass index (BMI) of 37.0 to 37.9 in adult ([facility]/HCC) Weight loss indicated * Yossi Golden MD - 08/11/2024 12:16 PM ESTAssociated Problem(s): Type 2 diabetes mellitus with hyperglycemia, with long-term current use of insulin ([facility]) BS improved and A1C 7.0. Follow with endo. * Yossi Golden MD - 08/11/2024 12:15 PM ESTAssociated Problem(s): Diabetic gastroparesis associated with type 2 diabetes mellitus ([facility]/HCC) Symptoms unchanged and continue medication. Follow with GI. * Yossi Golden MD - 08/11/2024 11:45 AM EST Images from the original note were not included. Subjective Patient ID: Gael Ruby is a 29 y.o. female who presents for Follow-up (Er f/up gastroparesis ). ER follow up from 07/29, 08/06, and 08/07 for abdominal pain. History of diabetic gastroparesis and worsening symptoms over the past few months. Constant abdominal pain and discomfort. Severe nausea and not able to eat well. Tries to drink but increased pain and nausea after eating. To ER and will get medication for pain and nausea. Seen by GI yesterday and ordered new medication but waiting for prior auth. Weight down 10 pounds in past few months. Scheduled for EGD 09/02. GI discussed possible referral to [facility] for feeding tube or nerve stimulator. Review of Systems Respiratory: Negative for cough, shortness of breath and wheezing. Cardiovascular: Negative for chest pain and palpitations. Gastrointestinal: Positive for abdominal pain, diarrhea and nausea. Negative for vomiting. Genitourinary: Negative for dysuria. Objective Physical Exam Constitutional: General: She is not in acute distress. Appearance: Normal appearance. HENT: Head: Normocephalic. Right Ear: Tympanic membrane normal. Left Ear: Tympanic membrane normal. Eyes: Extraocular Movements: Extraocular movements intact. Pupils: Pupils are equal, round, and reactive to light. Cardiovascular: Rate and Rhythm: Normal rate and regular rhythm. Heart sounds: No murmur heard. No friction rub. No gallop. Pulmonary: Effort: Pulmonary effort is normal. Breath sounds: Normal breath sounds. No wheezing, rhonchi or rales. Abdominal: General: Bowel sounds are normal. There is no distension. Palpations: Abdomen is soft. Tenderness: There is no abdominal tenderness. There is no guarding or rebound. Musculoskeletal: Cervical back: Neck supple. Right lower leg: No edema. Left lower leg: No edema. Neurological: Mental Status: She is alert. Assessment/Plan Problem List Items Addressed This Visit Type 2 diabetes mellitus with hyperglycemia, with long-term current use of insulin ([facility]) BS improved and A1C 7.0. Follow with endo. Diabetic gastroparesis associated with type 2 diabetes mellitus ([facility]CC) - Primary Symptoms unchanged and continue medication. Follow with GI. Nonalcoholic fatty liver Follow with GI. Class 2 severe obesity due to excess calories with serious comorbidity and body mass index (BMI) of37.0 to 37.9 in adult ([facility]) Weight loss indicated documented in this encounterDoctors [facility] of [id number] Evaluation + Plan note Extracted from: Title:ED Note Author:Phan Sandy DO Date: Gastroparesis (K31.84: Gastr oparesis) Orders: dicyclomine, 20 mg = 2 mL, Injection, IntraMuscular, Once, Stop date 08/07/24 11:15:00 EST, STAT, Start date 08/07/24 11:15:00 EST, 08/07/24 11:15:00 EST dicyclomine, 20 mg = 1 tab(s), Oral, TID, X 7 day(s), # 21 tab(s), Refills(s) 0, Pharmacy: [facility] [id number], 172, cm, 08/07/24 9:14:00 EST, Height/Length Dosing, 111.2, kg, 08/07/24 9:14:00 EST, Weight Dosing diphenhydrAMINE, 25 mg = 0.5 mL, Injection, IV, Once, Stop date 08/07/24 9:08:00 EST, STAT, Start date 08/07/24 9:08:00 EST, 08/07/24 9:08:00 EST metoclopramide, 10 mg = 2 mL, Injection, IV Push, Once, Stop date 08/07/24 9:08:00 EST, STAT, Start date 08/07/24 9:08:00 EST, 08/07/24 9:08:00 EST ondansetron, 4 mg = 1 tab(s), Oral, q6hr, X 3 day(s), # 10 tab(s), Refills(s) 0, Pharmacy: [facility] [id number], 172, cm, 08/07/24 9:14:00 EST, Height/Length Dosing, 111.2, kg, 08/07/24 9:14:00 EST, Weight Dosing pantoprazole, 40 mg = 10 mL, Injection, IV Push, Once, Stop date 08/07/24 9:30:00 EST, STAT, Start date 08/07/24 9:30:00 EST, 08/07/24 9:30:00 EST pantoprazole, 40 mg = 1 tab(s), Oral, Daily, X 30 day(s), # 30 tab(s), Refills(s) 0, Pharmacy: [facility] [id number], 172, cm, 08/07/24 9:14:00 EST, Height/Length Dosing, 111.2, kg, 08/07/24 9:14:00 EST, Weight Dosing promethazine 25 mg + Sodium Chloride 0.9% intravenous solution 50 mL, Injection, IV Piggyback, Once, Stop date 08/07/24 10:26:00 EST, STAT, Start date 08/07/24 10:26:00 EST, 153 mL/hr, Infuse over 20 minute(s) CBC w/ Auto Diff Comprehensive Metabolic Panel eGFR Extra Blue Tube Extra SST Tube Lipase Level Future Appointments Appointment Date:08/10/2024 10:30:00 AM Scheduled Provider:Aly Beverly MD Location:[facility] App[facility] Type:[facility] Follow Up Future Scheduled Tests Radiology* NM Gastric Emptying Study 05/25/24 [facility] 11-15-2024 Hospital Discharge instructions Follow Up Care 08/07/2024 09:06:44 With:Aly Beverly Address: [facility] Ashu Guardado, [facility] [address] [phone] [phone] Business (1) When:08/10/2024 11:52:10 With:YOSSI GOLDEN Address: [address] [place] [phone] Business (1) When:Within 3 Day(s) [facility] 11-15-2024 Hospital Discharge instructions Patient Education 08/06/2024 23:51:56 Abdominal Pain, Adult, [id number] Abdominal Pain, Adult Many things can cause belly (abdominal) pain. In most cases, belly pain is not a serious problem and can be watched and treated at home. But in some cases, it can be serious. Your doctor will try to find the cause of your belly pain. Follow these instructions at home: Medicines Take dznh-njl-eacsilg and prescription medicines only as told by your doctor. Do not take medicines that help you poop (laxatives) unless told by your doctor. General instructions Watch your belly pain for any changes. Tell your doctor if the pain gets worse. Drink enough fluid to keep your pee (urine) pale yellow. Contact a doctor if: Your belly pain changes or gets worse. You have very bad cramping or bloating in your belly. You vomit. Your pain gets worse with meals, after eating, or with certain foods. You have trouble pooping or have watery poop for more than 2 3 days. You are not hungry, or you lose weight without trying. You have signs of not getting enough fluid or water (dehydration). These may include: ?Dark pee, very little pee, or no pee. ?Cracked lips or dry mouth. ?Feeling sleepy or weak. You have pain when you pee or poop. Your belly pain wakes you up at night. You have blood in your pee. You have a fever. Get help right away if: You cannot stop vomiting. Your pain is only in one part of your belly, like on the right side. You have bloody or black poop, or poop that looks like tar. You have trouble breathing. You have chest pain. These symptoms may be an emergency. Get help right away. Call 911. Do not wait to see if the symptoms will go away. Do not drive yourself to the hospital. This information is not intended to replace advice given to you by your health care provider. Make sure you discuss any questions you have with your health care provider. Document Revised: 06/26/2023 Document Reviewed: 06/26/2023 [employer] Patient Education 2023 [employer]. Follow Up Care 08/06/2024 19:02:06 With:Aly Beverly Address: [address] [place] [address], [address] [phone] Business (1) When:08/09/2024 Comments:Call to schedule a follow-up appointment with your city weighmaster in the next 2 to 3 days. Return to ED with any new or worsening symptoms. With:YOSSI GOLDEN Address: [facility] [place] [phone] Business (1) When:Within 3 Day(s) [facility] 11-15-2024 NoteED Patient Education Note Gastroenterology Abdominal Pain, Adult Many things can cause belly (abdominal) pain. In most cases, belly pain is not a serious problem and can be watched and treated at home. But in some cases, it can be serious. Your doctor will try to find the cause of your belly pain. Follow these instructions at home: Medicines ??? Take zmjm-tyq-ynxenzi and prescription medicines only as told by your doctor. ??? Do not take medicines that help you poop (laxatives) unless told by your doctor. General instructions ??? Watch your belly pain for any changes. Tell your doctor if the pain gets worse. ??? Drink enough fluid to keep your pee (urine) pale yellow. Contact a doctor if: ??? Your belly pain changes or gets worse. ??? You have very bad cramping or bloating in your belly. ??? You vomit. ??? Your pain gets worse with meals, after eating, or with certain foods. ??? You have trouble pooping or have watery poop for more than 2?3 days. ??? You are not hungry, or you lose weight without trying. ??? You have signs of not getting enough fluid or water (dehydration). These may include: ? Dark pee, very little pee, or no pee. ? Cracked lips or dry mouth. ? Feeling sleepy or weak. ??? You have pain when you pee or poop. ??? Your belly pain wakes you up at night. ??? You have blood in your pee. ??? You have a fever. Get help right away if: ??? You cannot stop vomiting. ??? Your pain is only in one part of your belly, like on the right side. ??? You have bloody or black poop, or poop that looks like tar. ??? You have trouble breathing. ??? You have chest pain. These symptoms may be an emergency. Get help right away. Call 911. ??? Do not wait to see if the symptoms will go away. ??? Do not drive yourself to the hospital. This information is not intended to replace advice given to you by your health care provider. Make sure you discuss any questions you have with your health care provider. Document Revised: 06/26/2023 Document Reviewed: 06/26/2023 [employer] Patient Education ? 2023 [employer].[facility] 08-06-2024 Evaluation + Plan noteExtracted from: Title:ED Note Author:Dwight ESCOBAR, Mouna Flores te:08/06/24 Chronic abdominal pain (R10. 9: Unspecified abdominal pain) Gastroparesis (K31.84: Gastroparesis) Other chronic pain (G89.29: Other chronic pain) Orders: Al hydroxide/Mg hydroxide/simethicone, 30 mL, Susp-Oral, Oral, Once, Stop date 08/06/24 22:42:00 EST, STAT, Start date 08/06/24 22:42:00 EST atropine/hyoscyamine/PB/scopolamine, 10 mL, Elixir, Oral, Once, Stop date 08/06/24 22:42:00 EST, STAT, Start date 08/06/24 22:42:00 EST lidocaine topical, 200 mg, 10 mL, Soln-Oral, Oral, Once, Stop date 08/06/24 22:42:00 EST, STAT, Start date 08/06/24 22:42:00 EST metoclopramide, 10 mg = 2 mL, Injection, IV Push, Once, Stop date 08/06/24 23:23:00 EST, STAT, Start date 08/06/24 23:23:00 EST, 08/06/24 23:23:00 EST morphine, 4 mg = 1 mL, Injection, IV Push, Once, Stop date 08/06/24 20:21:00 EST, STAT, Start date 08/06/24 20:21:00 EST, 08/06/24 20:21:00 EST ondansetron, 4 mg = 2 mL, Injection, IV Push, Once, Stop date 08/06/24 20:21:00 EST, STAT, Start date 08/06/24 20:21:00 EST, 08/06/24 20:21:00 EST pantoprazole, 40 mg = 10 mL, Injection, IV Push, Once, Stop date 08/06/24 21:23:00 EST, STAT, Start date 08/06/24 21:23:00 EST, 08/06/24 21:23:00 EST promethazine 25 mg + Sodium Chloride 0.9% intravenous solution 50 mL, IV Piggyback, Once, Stop date 08/06/24 22:04:00 EST, STAT, Start date 08/06/24 22:04:00 EST, 153 mL/hr, Infuse over 20 minute(s), 08/06/24 22:04:00 EST Basic Metabolic Panel CBC w/ Auto Diff eGFR Extra Blue Tube Extra SST Tube Hepatic Function Panel Lipase Level U Beta Hcg Qual UA with Cult Rflx XR Abdomen Series w/ Chest 1 View Future Appointments Appointment Date:08/10/2024 10:30:00 AM Scheduled Provider:Aly Beverly MD Location:[facility] App[facility] Type:[facility] Follow Up Future Scheduled Tests Radiology* NM Gastric Emptying Study 05/25/24 [facility] [id number] Hospital Discharge instructions* Discharge Instructions* Chemo Solo MD - 08/06/2024 12:15 PM EST Please continue your regimen for your gastroparesis. Constipation is also likely contributing to your abdominal pain symptoms. For constipation: - wean from narcotic as soon as possible - begin taking metamucil or other fiber supplement daily - you can take miralax (one capful) twice daily until you start having soft bowel movement, then reduce to one capful once daily - take colace as previously prescribed. - if still not having bowel movement, take either milk of magnesium or 1/2 bottle of magnesium citrate PLEASE RETURN TO THE EMERGENCY DEPARTMENT IMMEDIATELY for worsening symptoms, inability to have a bowel movement or if you develop any concerning symptoms such as: high fever not relieved by acetaminophen (Tylenol) and/or ibuprofen (Motrin / Advil), chills, shortness of breath, chest pain, feeling of your heart fluttering or racing, persistent nausea and/or vomiting, vomiting up blood, blood in your stool, numbness, loss of consciousness, weakness or tingling in the arms or legs or change in color of the extremities, changes in mental status, persistent headache, blurry vision, loss of bladder / bowel control, unable to follow up with your physician, or other any other care or concern. documented in this [facility]Bon [facility] Discharge instructions Patient Education 07/29/2024 21:13:19 Gastroparesis Gastroparesis Gastroparesis is a condition in which food takes longer than normal to empty from the stomach. Thiscondition is also known as delayed gastric emptying. It is usually a long-term (chronic) condition. There is no cure, but there are treatments and things that you can do at home to help relieve symptoms. Treating the underlying condition that causes gastroparesis can also help relieve symptoms. What are the causes? In many cases, the cause of this condition is not known. Possible causes include: A hormone (endocrine) disorder, such as hypothyroidism or diabetes. A nervous system disease, such as Parkinson's disease or multiple sclerosis. Cancer, infection, or surgery that affects the stomach or vagus nerve. The vagus nerve runs from your chest, through your neck, and to the lower part of your brain. A connective tissue disorder, such as scleroderma. Certain medicines. What increases the risk? You are more likely to develop this condition if: You have certain disorders or diseases. These may include: ?An endocrine disorder. ?An eating disorder. ?Amyloidosis. ?Scleroderma. ?Parkinson's disease. ?Multiple sclerosis. ?Cancer or infection of the stomach or the vagus nerve. You have had surgery on your stomach or vagus nerve. You take certain medicines. You are female. What are the signs or symptoms? Symptoms of this condition include: Feeling full after eating very little or a loss of appetite. Nausea, vomiting, or heartburn. Bloating of your abdomen. Inconsistent blood sugar (glucose) levels on blood tests. Unexplained weight loss. Acid from the stomach coming up into the esophagus (gastroesophageal reflux). Sudden tightening (spasm) of the stomach, which can be painful. Symptoms may come and go. Some people may not notice any symptoms. How is this diagnosed? This condition is diagnosed with tests, such as: Tests that check how long it takes food to move through the stomach and intestines. These tests include: ?Upper gastrointestinal (GI) series. For this test, you drink a liquid that shows up well on X-rays, and then X-rays are taken of your intestines. ?Gastric emptying scintigraphy. For this test, you eat food that contains a small amount of radioactive material, and then scans are taken. ?Wireless capsule GI monitoring system. For this test, you swallow a pill (capsule) that records information about how foods and fluid move through your stomach. Gastric manometry. For this test, a tube is passed down your throat and into your stomach to measure electrical and muscular activity. Endoscopy. For this test, a long, thin tube with a camera and light on the end is passed down your throat and into your stomach to check for problems in your stomach lining. Ultrasound. This test uses sound waves to create images of the inside of your body. This can help rule out gallbladder disease or pancreatitis as a cause of your symptoms. How is this treated? There is no cure for this condition, but treatment and home care may relieve symptoms. Treatment may include: Treating the underlying cause. Managing your symptoms by making changes to your diet and exercise habits. Taking medicines to control nausea and vomiting and to stimulate stomach muscles. Getting food through a feeding tube in the hospital. This may be done in severe cases. Having surgery to insert a device called a gastric electrical stimulator into your body. This device helps improve stomach emptying and control nausea and vomiting. Follow these instructions at home: Take bcnt-ide-azlrsim and prescription medicines only as told by your health care provider. Follow instructions from your health care provider about eating or drinking restrictions. Your health care provider may recommend that you: ?Eat smaller meals more often. ?Eat low-fat foods. ?Eat low-fiber forms of high-fiber foods. For example, eat cooked vegetables instead of raw vegetables. ?Have only liquid foods instead of solid foods. Liquid foods are easier to digest. Drink enough fluid to keep your urine pale yellow. Exercise as often as told by your health care provider. Keep all follow-up visits. This is important. Contact a health care provider if you: Notice that your symptoms do not improve with treatment. Have new symptoms. Get help right away if you: Have severe pain in your abdomen that does not improve with treatment. Have nausea that is severe or does not go away. Vomit every time you drink fluids. Summary Gastroparesis is a long-term (chronic) condition in which food takes longer than normal to empty from the stomach. Symptoms include nausea, vomiting, heartburn, bloating of your abdomen, and loss of appetite. Eating smaller portions, low-fat foods, and low-fiber forms of high-fiber foods may help you manageyour symptoms. Get help right away if you have severe pain in your abdomen. This information is not intended to replace advice given to you by your health care provider. Make sure you discuss any questions you have with your health care provider. Document Revised: 01/16/2021 Document Reviewed: 01/16/2021 [employer] Patient Education 2023 [employer]. Follow Up Care 07/29/2024 18:44:08 With:YOSSI GOLDEN Address: [address] [place] [address] Business (1) When:08/01/2024 20:03:02 [facility] [place] 11-06-2024 NoteED Patient Education Note Gastroenterology Gastroparesis Gastroparesis is a condition in which food takes longer than normal to empty from the stomach. Thiscondition is also known as delayed gastric emptying. It is usually a long-term (chronic) condition. There is no cure, but there are treatments and things that you can do at home to help relieve symptoms. Treating the underlying condition that causes gastroparesis can also help relieve symptoms. What are the causes? In many cases, the cause of this condition is not known. Possible causes include: ??? A hormone (endocrine) disorder, such as hypothyroidism or diabetes. ??? A nervous system disease, such as Parkinson's disease or multiple sclerosis. ??? Cancer, infection, or surgery that affects the stomach or vagus nerve. The vagus nerve runs from your chest, through your neck, and to the lower part of your brain. ??? A connective tissue disorder, such as scleroderma. ??? Certain medicines. What increases the risk? You are more likely to develop this condition if: ??? You have certain disorders or diseases. These may include: ? An endocrine disorder. ? An eating disorder. ? Amyloidosis. ? Scleroderma. ? Parkinson's disease. ? Multiple sclerosis. ? Cancer or infection of the stomach or the vagus nerve. ??? You have had surgery on your stomach or vagus nerve. ??? You take certain medicines. ??? You are female. What are the signs or symptoms? Symptoms of this condition include: ??? Feeling full after eating very little or a loss of appetite. ??? Nausea, vomiting, or heartburn. ??? Bloating of your abdomen. ??? Inconsistent blood sugar (glucose) levels on blood tests. ??? Unexplained weight loss. ??? Acid from the stomach coming up into the esophagus (gastroesophageal reflux). ??? Sudden tightening (spasm) of the stomach, which can be painful. Symptoms may come and go. Some people may not notice any symptoms. How is this diagnosed? This condition is diagnosed with tests, such as: ??? Tests that check how long it takes food to move through the stomach and intestines. These testsinclude: ? Upper gastrointestinal (GI) series. For this test, you drink a liquid that shows up well on X-rays, and then X-rays are taken of your intestines. ? Gastric emptying scintigraphy. For this test, you eat food that contains a small amount of radioactive material, and then scans are taken. ? Wireless capsule GI monitoring system. For this test, you swallow a pill (capsule) that records information about how foods and fluid move through your stomach. ??? Gastric manometry. For this test, a tube is passed down your throat and into your stomach to measure electrical and muscular activity. ??? Endoscopy. For this test, a long, thin tube with a camera and light on the end is passed down your throat and into your stomach to check for problems in your stomach lining. ??? Ultrasound. This test uses sound waves to create images of the inside of your body. This can help rule out gallbladder disease or pancreatitis as a cause of your symptoms. How is this treated? There is no cure for this condition, but treatment and home care may relieve symptoms. Treatment may include: ??? Treating the underlying cause. ??? Managing your symptoms by making changes to your diet and exercise habits. ??? Taking medicines to control nausea and vomiting and to stimulate stomach muscles. ??? Getting food through a feeding tube in the hospital. This may be done in severe cases. ??? Having surgery to insert a device called a gastric electrical stimulator into your body. This device helps improve stomach emptying and control nausea and vomiting. Follow these instructions at home: ??? Take emqe-iwu-lunmnsx and prescription medicines only as told by your health care provider. ??? Follow instructions from your health care provider about eating or drinking restrictions. Your health care provider may recommend that you: ? Eat smaller meals more often. ? Eat low-fat foods. ? Eat low-fiber forms of high-fiber foods. For example, eat cooked vegetables instead of raw vegetables. ? Have only liquid foods instead of solid foods. Liquid foods are easier to digest. ??? Drink enough fluid to keep your urine pale yellow. ??? Exercise as often as told by your health care provider. ??? Keep all follow-up visits. This is important. Contact a health care provider if you: ??? Notice that your symptoms do not improve with treatment. ??? Have new symptoms. Get help right away if you: ??? Have severe pain in your abdomen that does not improve with treatment. ??? Have nausea that is severe or does not go away. ??? Vomit every time you drink fluids. Summary ??? Gastroparesis is a long-term (chronic) condition in which food takes longer than normal to empty from the stomach. ??? Symptoms include nausea, vomiting, heartburn, bloating of your abdomen, and loss of ap (more content not included)...[facility]11-06-2024 Evaluation + Plan noteExtracted from: Title:ED Note Author:Artem Duenas PA-C te:07/29/24 Epigastric abdominal pain (R 10.13: Epigastric pain) Gastroparesis (K31.84: Gastroparesis) Nausea & vomiting (R11.2: Nausea with vomiting, unspecified) Orders: Al hydroxide/Mg hydroxide/simethicone, 30 mL, Susp-Oral, Oral, Once, Stop date 07/29/24 20:01:00 EST, STAT, Start date 07/29/24 20:01:00 EST atropine/hyoscyamine/PB/scopolamine, 10 mL, Elixir, Oral, Once, Stop date 07/29/24 20:01:00 EST, STAT, Start date 07/29/24 20:01:00 EST lidocaine topical, 200 mg, 10 mL, Soln-Oral, Oral, Once, Stop date 07/29/24 20:01:00 EST, STAT, Start date 07/29/24 20:01:00 EST promethazine 12.5 mg + Sodium Chloride 0.9% intravenous solution 50 mL, Injection, IV Piggyback, Once, Stop date 07/29/24 19:25:00 EST, STAT, Start date 07/29/24 19:25:00 EST, 151.5 mL/hr, Infuse over 20 minute(s) Future Appointments Appointment Date:08/10/2024 10:30:00 AM Scheduled Provider:Aly Beverly MD Location:[facility] App[facility] Type:[facility] Follow Up Future Scheduled Tests Radiology* NM Gastric Emptying Study 05/25/24 [facility] [place] 10-17-2024 History of Present illness Narrative* Yossi Golden MD - 07/09/2024 1:36 PM EDTAssociated Problem(s): Type 2 diabetes mellitus with hyperglycemia, with long-term current use of insulin (CMS/HCC) BS improved and A1C 7.0. Follow with endo. * Yossi Golden MD - 07/09/2024 1:36 PM EDTAssociated Problem(s): Nonalcoholic fatty liver Follow with GI. * Yossi Golden MD - 07/09/2024 1:36 PM EDTAssociated Problem(s): Major depressive disorder, recurrent, moderate (CMS/HCC) Symptoms improved and continue prozac. * Yossi Golden MD - 07/09/2024 1:35 PM EDTAssociated Problem(s): Diabetic gastroparesis associated with type 2 diabetes mellitus (CMS/HCC) Symptoms improved and continue reglan. Follow with GI. * Yossi Golden MD - 07/09/2024 1:00 PM EDT Images from the original note were not included. Subjective Patient ID: Gael Ruby is a 28 y.o. female who presents for Follow-up (1 m fu). Follow up DM, gastroparesis, and depression. Admitted 07/07-07/08 with abdominal pain, nausea and emesis. Stopped zanaflex and norco. Initially clear liquid and tolerated. Today symptoms stable. Taking reglan and mild nausea. Scheduled with GI in a few weeks. BS improved and endo added jardiance. BS around 150 and recent A1C 7.0. Mood much improved with prozac. Not as down or sad and feels happier. Interacting well with others. Handling medical problems and symptoms relatively well. Review of Systems Respiratory: Negative for cough, shortness of breath and wheezing. Cardiovascular: Negative for chest pain and palpitations. Gastrointestinal: Negative for abdominal pain, diarrhea, nausea and vomiting. Genitourinary: Negative for dysuria. Objective Physical Exam Constitutional: General: She is not in acute distress. Appearance: Normal appearance. HENT: Head: Normocephalic. Right Ear: Tympanic membrane normal. Left Ear: Tympanic membrane normal. Eyes: Extraocular Movements: Extraocular movements intact. Pupils: Pupils are equal, round, and reactive to light. Cardiovascular: Rate and Rhythm: Normal rate and regular rhythm. Heart sounds: No murmur heard. No friction rub. No gallop. Pulmonary: Effort: Pulmonary effort is normal. Breath sounds: Normal breath sounds. No wheezing, rhonchi or rales. Abdominal: General: Bowel sounds are normal. There is no distension. Palpations: Abdomen is soft. Tenderness: There is no abdominal tenderness. There is no guarding or rebound. Musculoskeletal: Cervical back: Neck supple. Right lower leg: No edema. Left lower leg: No edema. Neurological: Mental Status: She is alert. Assessment/Plan Problem List Items Addressed This Visit Major depressive disorder, recurrent, moderate (CMS/HCC) Symptoms improved and continue prozac. Type 2 diabetes mellitus with hyperglycemia, with long-term current use of insulin (CMS/HCC) BS improved and A1C 7.0. Follow with endo. Relevant Medications insulin glargine (Lantus SoloStar) 100 UNIT/ML pen Diabetic gastroparesis associated with type 2 diabetes mellitus (CMS/HCC) - Primary Symptoms improved and continue reglan. Follow with GI. Nonalcoholic fatty liver Follow with GI. [id number] History of Present illness Narrative* Brooke Elmore RN - 07/08/2024 1:25 PM EDT Design Teacher went over discharge instructions with pt at this time. Pt verbalized understanding and denies further questions. IV removed and dressing applied. Pt walked down to car for discharge via pt request. Pt belongings in hand. * Rob Knutson, RD, LD - 07/08/2024 8:46 AM EDT Comprehensive Nutrition Assessment Type and Reason for Visit: Initial Nutrition Recommendations/Plan: Encourage smaller more frequent meals. Avoid fatty and high fiber foods (to decrease GI transit time in stomach). Avoid laying down after any PO Carbohydrate count Malnutrition Assessment: Malnutrition Status: At risk for malnutrition (Comment) (07/08/24 0910) Context: Acute Illness Findings of the 6 clinical characteristics of malnutrition: Energy Intake: Mild decrease in energy intake (Comment) Weight Loss: No significant weight loss Body Fat Loss: No significant body fat loss Muscle Mass Loss: No significant muscle mass loss Fluid Accumulation: No significant fluid accumulation [employer] Strength: Not Performed Nutrition Assessment: Predicted suboptimal nutrient intakes r/t altered GI function, AEB lower PO r/t vomiting/gastroparesis. Potentially weight losess per admission weight but currently up to former usual values. Poorer diabetes control than historically with A1C 9.8. Vague in describing home diet and doesn't report clear goals for carbohydrate (although repeats she's been watching diet for fat, fiber after I suggestthese modalities for her gastroparesis). Still some nausea still this AM and laying flat in bed after having jello. Advised and encouraged to sit up after PO. Denies education needs although likely to benefit. Nutrition Related Findings: hypoactive b/s. no edema. + flatus. Wound Type: None Current Nutrition Intake & Therapies: Average Meal Intake: 1-25% Average Supplements Intake: None Ordered ADULT DIET; Clear Liquid Anthropometric Measures: Height: 172.7 cm (5' 8 ) [place] Body Weight (IBW): 140 lbs (64 kg) Admission Body Weight: 108.9 kg (240 lb) Current Body Weight: 113.2 kg (249 lb 8 oz), 178.2 % IBW. Weight Source: Bed Scale Current BMI (kg/m2): 37.9 Usual Body Weight: 113.4 kg (250 lb) % Weight Change (Calculated): -0.2 Weight Adjustment For: No Adjustment BMI Categories: Obese Class 2 (BMI 35.0 -39.9) Estimated Daily Nutrient Needs: Energy Requirements Based On: Kcal/kg Weight Used for Energy Requirements: Current Energy (kcal/day): 0846-8229 (15-18) Weight Used for Protein Requirements: [place] Protein (g/day): 70-83 (1.1-1.3) Method Used for Fluid Requirements: 1 ml/kcal Fluid (ml/day): 1999 Nutrition Diagnosis: Predicted inadequate energy intake related to altered GI function as evidenced by NPO or clear liquid status due to medical condition Lab Results Component Value Date NA 140 07/08/2024 K 4.3 07/08/2024 CL 105 07/08/2024 CO2 25 07/08/2024 BUN 9 07/08/2024 CREATININE 0.7 07/08/2024 GLUCOSE 173 (H) 07/08/2024 CALCIUM 9.2 07/08/2024 BILITOT 0.3 07/07/2024 ALKPHOS 100 07/07/2024 AST 34 07/07/2024 ALT 34 07/07/2024 LABGLOM >90 07/08/2024 GFRAA >60 04/23/2022 GLOB NOT REPORTED 05/16/2021 Hemoglobin A1C Date Value Ref Range Status 04/21/2024 9.8 (H) 4.0 - 6.0 % Final No results found for: VITD25 Nutrition Interventions: Food and/or Nutrient Delivery: Continue Current Diet Nutrition Education/Counseling: Education declined Coordination of Nutrition Care: Continue to monitor while inpatient Plan of Care discussed with: patient Goals: Goals: Meet at least 75% of estimated needs Nutrition Monitoring and Evaluation: Behavioral-Environmental Outcomes: None Identified Food/Nutrient Intake Outcomes: Food and Nutrient Intake Physical Signs/Symptoms Outcomes: Weight, Biochemical Data Discharge Planning: No discharge needs at this time Rob Knutson RD, TRUDY Contact: [phone] * Aissatou Salcedo APRN - DEMARCUS - 07/08/2024 7:31 AM EDT Progress Note SUBJECTIVE: Patient seen for f/u of Nausea and vomiting. She resting in bed no distress. Stated she spit up during the night. No pain. ROS: Constitutional: negative for fevers, and negative for chills. Respiratory: negative for shortness of breath, negative for cough, and negative for wheezing Cardiovascular: negative for chest pain, and negative for palpitations Gastrointestinal: negative for abdominal pain, negative for nausea,negative for vomiting, negative for diarrhea, and negative for constipation All other systems were reviewed with the patient and are negative unless otherwise stated in HPI OBJECTIVE: Vitals: Vitals: 07/08/24 0705 BP: 132/83 Pulse: 61 Resp: 19 Temp: 97.9 F (36.6 C) SpO2: 95% Weight - Scale: 113.2 kg (249 lb 8 oz) Height: 172.7 cm (5' 8 ) Weight Wt Readings from Last 3 Encounters: 07/08/24 113.2 kg (249 lb 8 oz) 06/16/24 111.2 kg (245 lb 2.4 oz) 04/09/24 116.1 kg (256 lb) Body mass index is 37.94 kg/m . 24HR INTAKE/OUTPUT: Intake/Output Summary (Last 24 hours) at 07/08/2024 0731 Last data filed at 07/08/2024 0716 Gross per 24 hour Intake 1585.27 ml Output 800 ml Net 785.27 ml Exam: GEN: Awake, alert and oriented x3. EYES: EOMI, pupils equal NECK: Supple. No lymphadenopathy. No carotid bruit CVS: regular rate and rhythm, no audible murmur PULM: CTA, no wheezes, rales or rhonchi, no acute respiratory distress ABD: Bowels sounds normal. Abdomen is soft. No distention. no tenderness to palpation. EXT: no edema bilaterally . No calf tenderness. NEURO: Moves all extremities. Motor and sensory are grossly intact SKIN: No rashes. No skin lesions. Diagnostic Data: Complete Blood Count: Recent Labs 07/07/24917 WBC 10.0 RBC 5.09 HGB 15.2* HCT 45.5 MCV 89.4 MCH 29.9 MCHC 33.4 RDW 12.7 PLT 294 MPV 10.4 Last 3 Blood Glucose: Recent Labs 07/07/2491707/08/24 0525 GLUCOSE 210* 173* Comprehensive Metabolic Profile: Recent Labs 07/07/2491707/08/24 0525 NA 141 140 K 4.3 4.3 CL 104 105 CO2 24 25 BUN 12 9 CREATININE 0.7 0.7 GLUCOSE 210* 173* CALCIUM 9.9 9.2 BILITOT 0.3 -- ALKPHOS 100 -- AST 34 -- ALT 34 -- Urinalysis: Lab Results Component Value Date/Time NITRU NEGATIVE 07/07/2024 09:20 AM COLORU Yellow 07/07/2024 09:20 AM PHUR 6.0 07/07/2024 09:20 AM PHUR 6.0 01/16/2024 06:35 PM WBCUA None 07/07/2024 09:20 AM RBCUA None 07/07/2024 09:20 AM MUCUS TRACE 04/09/2024 12:47 PM TRICHOMONAS NOT REPORTED 01/08/2021 10:22 PM YEAST NOT REPORTED 01/08/2021 10:22 PM BACTERIA TRACE 07/07/2024 09:20 AM LEUKOCYTESUR NEGATIVE 07/07/2024 09:20 AM UROBILINOGEN Normal 07/07/2024 09:20 AM BILIRUBINUR NEGATIVE 07/07/2024 09:20 AM GLUCOSEU 3+ 07/07/2024 09:20 AM KETUA NEGATIVE 07/07/2024 09:20 AM AMORPHOUS NOT REPORTED 01/08/2021 10:22 PM HgBA1c: Lab Results Component Value Date/Time LABA1C 9.8 04/21/2024 01:19 PM Lactic Acid: Lab Results Component Value Date/Time LACTA 1.9 06/16/2024 06:20 PM LACTA 1.8 06/08/2024 09:10 AM LACTA 1.5 05/20/2024 07:57 PM Troponin: No results for input(s): TROPONINI in the last 72 hours. CRP: No results for input(s): CRP in the last 72 hours. Radiology/Imaging: No orders to display ASSESSMENT / PLAN: MEDICAL DECISION MAKING: Primary Problem(s): Nausea and vomiting Differential diagnoses: gastroparesis, gastroenteritis Condition is a chronic illness with exacerbation, progression or side effects of treatment Condition is stable Treatment plan: Monitor labs and replace electrolytes Clear Liquid diet Ambulate Imaging: no further imaging studies ordered today Medications: IVF Continue Reglan, Protonix, Stop Bentyl No Narcotics Medication Monitoring / High Risk Medications: none DM Condition is a chronic stable condition Treatment plan: POCT AC/HS Imaging: no further imaging studies ordered today Medications: Hypoglycemia Protocol ISS Currently off Trulicity Continue Jardiance Hold Lantus, Glucotrol until taking PO well Chronic Pain Condition is a chronic stable condition Treatment plan: Continue current treatment Imaging: no further imaging studies ordered today Medications: Continue Tylenol Continue Lidoderm patch prn Stop Bentyl No Tizanidine d/t Gastroparesis No Narcotics Nutrition status: morbid obesity [facility] consult initiated Hospital Prophylaxis: DVT: none Stress Ulcer: PPI Disposition: Shared decision making: All test results, treatment options and disposition options were discussed with the patient today Social determinants of health that may impact management: none Code status: Full Code Disposition: Discharge plan is home [facility] Advanced Care Planning documentation: [x] I have confirmed that the patient's Advance Care Plan is present, Code Status is documented, orsurrogate decision maker is listed in the patient's medical record [If yes , STOP HERE] [] The patient's Advance Care Plan is NOT present because: [] I confirmed today that the patient does not wish or was not able to name a surrogate decision maker or provide and advance care plan. [] Hospice care is currently being provided or has been provided within the calendar year. [] I did NOT confirm today the presence of an Advance Care Plan or surrogate decision maker documented within the patient's medical record. [DOES NOT SATISFY [facility] PERFORMANCE] Aissatou Salcedo, OSMAR - CHIEF MINISTER , PRECIPITATOR OPERATOR, INSTRUCTION ASSISTANT PRINCIPAL-C [facility] 07/08/2024, 7:31 AM Associated attestation - Dedra Pineda MD - 07/08/2024 11:53 AM EDT Attending Supervising Physician s Attestation Statement I have personally evaluated and examined the patient [id number] in conjunction with the nurse practitioner. I agree with management and disposition of the patient. Examined and Reviewed plan of care with INSTRUCTION ASSISTANT PRINCIPAL. Directions and discussion about care and plans. Disposition including length of stay was reviewed. Nutritional status, advanced directive and old records reviewed. In addition, Consultations and pharmacy management including drug therapy was reviewed. Therapy goals along with occupational therapy was reviewed & integrated into management including disposition. The patient was seen examined with the nurse practitioner & all direct care was reviewed with the nurse practitioner at the bedside with the patient. Electronically signed by Dedra Pineda MD * Brooke Elmore RN - 07/08/2024 7:05 AM EDT Design Teacher to bedside to complete morning assessment. Upon entry to room, pt in bed eyes closed, respirations even and unlabored while on room air. Vitals obtained and assessment completed, see flow sheet for details. Pt is A&Ox4. Pt complaining of abdominal pain, medication to be given shortly. Lung sounds are clear throughout. Abdominal sounds are hypoactive throughout with pt tenderness in theRUQ and LUQ. Pt updated on plan of care and whiteboard updated. Pt denies further needs from writerat this time. Call light in reach. Care ongoing. * Vandana Pittman RPH - 07/07/2024 3:00 PM EDT Per [facility] approved formulary policy, SGLT2 Inhibitors are not stocked or supplied for our inpatients except for the indication of heart failure or CKD, in which empagliflozin is the formulary agent. Please note that the Empagliflozin (Jardiance) is non-formulary and has been discontinued while inpatient. If you feel the patient needs to continue their home therapy during the inpatient stay, the patient may bring their medication bottle for verification and administration pursuant to our home medication use policy. You may continue this at discharge. Please contact the pharmacy with any questions or concerns. Thank you. Vandana Pittman RPH, Davian/PharmD 07/07/2024 2:58 PM documented in this [facility]Bon [facility] Narrative* Aissatou Salcedo APRN - CHIEF MINISTER - 07/08/2024 11:15 AM EDT Discharge Summary Gael Ruby : 1995 Admit date: 07/07/2024 Discharge date: 07/08/2024 Admitting Physician: Dedra Pineda MD Discharge Diagnoses: Principal Problem: Nausea and vomiting Active Problems: Type 2 diabetes mellitus (HCC) Gastroparesis Resolved Problems: * No resolved hospital problems. * Hospital Course: Gael Ruby is a 28 y.o. female admitted with nausea and vomiting. She presented to the emergency room with complaints of abdominal pain with nausea but no vomiting. She reported poor appetite. She reports history of gastroparesis and does follow with a city weighmaster in [place] and is scheduled to see him in July. She does have history of diabetes and blood sugars have been elevated. She states that she is no longer on Trulicity. She does report chronic back pain and does use tizanidine but is out of it. Patient feels as though she is having a gastroparesis flare. She reported she called her PCP and had a refill on her Amidon but did not help. She denied diarrhea. Last bowel movement was two days ago. Patient does use marijuana. Patient's workup in the emergency room including lab work and urinalysis were negative. No radiology studies are completed howevershe had a CT of the abdomen on 06/08/2024 which was negative for acute process. Upon my evaluation patient is nontoxic appearing. She converses easily and in no acute distress. I did explained to the patient that I will restart her home medications for pain, nausea and abdominal cramping but will provide no further narcotics but only IV fluids and clear liquids. Patient was agreeable to this. During her admission labs were monitored and she was given IV fluids. She has had no further vomiting except stated that she did spit up a little during the night. She is tolerating clear liquid diet without difficulties. We did have a lengthy conversation with her regarding medications. We will stop her Bentyl, tizanidine and she will remain off her true illicitly due to gastroparesis and constipation issues. No narcotics given and recommend no use due to the issues as above. Plan will be to discharge today she will follow up with her city weighmaster as an outpatient is scheduled Consultants: none Procedures: none Complications: none Discharge Condition: fair Exam: GEN: Awake, alert and oriented x3. EYES: EOMI, pupils equal NECK: Supple. No lymphadenopathy. No carotid bruit CVS: regular rate and rhythm, no audible murmur PULM: CTA, no wheezes, rales or rhonchi, no acute respiratory distress ABD: Bowels sounds normal. Abdomen is soft. No distention. no tenderness to palpation. EXT: no edema bilaterally . No calf tenderness. NEURO: Moves all extremities. Motor and sensory are grossly intact SKIN: No rashes. No skin lesions. Significant Diagnostic Studies: Lab Results Component Value Date WBC 10.0 07/07/2024 HGB 15.2 (H) 07/07/2024 PLT 294 07/07/2024 Lab Results Component Value Date BUN 9 07/08/2024 CREATININE 0.7 07/08/2024 NA 140 07/08/2024 K 4.3 07/08/2024 CALCIUM 9.2 07/08/2024 CL 105 07/08/2024 CO2 25 07/08/2024 LABGLOM >90 07/08/2024 Lab Results Component Value Date WBCUA None 07/07/2024 RBCUA None 07/07/2024 LEUKOCYTESUR NEGATIVE 07/07/2024 GLUCOSEU 3+ (A) 07/07/2024 KETUA NEGATIVE 07/07/2024 PROTEINU NEGATIVE 07/07/2024 HGBUR NEGATIVE 07/07/2024 CASTUA 07/30/2023 None Reference range defined for non-centrifuged specimen. BACTERIA TRACE (A) 07/07/2024 YEAST NOT REPORTED 01/08/2021 No results found. Assessment and Plan: Patient Active Problem List Diagnosis Date Noted Mild concentric left ventricular hypertrophy (LVH) 04/04/2020 Cholangiectasis 03/26/2017 Post-op pain 11/12/2022 Complication of surgical procedure 11/12/2022 Bladder adhesions 11/12/2022 Adhesions of uterus 11/12/2022 Adhesion of omentum 11/12/2022 Nausea and vomiting 07/07/2024 Gastroparesis 07/07/2024 Borderline diabetes 12/25/2023 Type 2 diabetes mellitus (HCC) 12/25/2023 Intractable abdominal pain 12/24/2023 L4-L5 disc bulge 07/29/2023 Weakness of both lower extremities 06/21/2023 Menorrhagia with regular cycle Lumbar radiculopathy 09/25/2020 Hypercoagulable state (HCC) 08/03/2020 PE (pulmonary thromboembolism) (HCC) 06/13/2020 Hx of unilateral salpingectomy Tachycardia 12/30/2019 Lightheadedness 12/30/2019 Prehypertension 12/30/2019 Status post repeat low transverse section 06/27/2017 H/O acute pancreatitis 04/09/2017 Smoker 04/09/2017 Hiatal hernia 04/09/2017 Acute pancreatitis 03/25/2017 Obesity with body mass index 30 or greater 03/25/2017 Bandemia 03/25/2017 Hypercalcemia 03/25/2017 Discharge Medications: Medication List CONTINUE taking these medications albuterol sulfate HFA 108 (90 Base) MCG/ACT inhaler Commonly known as: Proventil HFA Inhale 2 puffs into the lungs every 6 hours as needed for Wheezing FLUoxetine 10 MG capsule Commonly known as: PROZAC glipiZIDE 10 MG tablet Commonly known as: GLUCOTROL hydrOXYzine HCl 25 MG tablet Commonly known as: ATARAX Lantus SoloStar 100 UNIT/ML injection pen Generic drug: insulin glargine Inject 30 Units into the skin nightly lidocaine 5 % Commonly known as: Lidoderm Place 1 patch onto the skin daily 12 hours on, 12 hours off. metoclopramide 10 MG tablet Commonly known as: Reglan Take 1 tablet by mouth 4 times daily for 10 days ondansetron 4 MG tablet Commonly known as: ZOFRAN Take 1 tablet by mouth 3 times daily as needed for Nausea or Vomiting pantoprazole 20 MG tablet Commonly known as: PROTONIX Pen [place] 12/06 31G X 5 MM Misc 1 each by Does not apply route daily prochlorperazine 10 MG tablet Commonly known as: COMPAZINE Take 1 tablet by mouth every 6 hours as needed (nausea) True Metrix Blood Glucose Test strip Generic drug: blood glucose test strips STOP taking these medications dicyclomine 10 MG capsule Commonly known as: BENTYL omeprazole 40 MG delayed release capsule Commonly known as: PRILOSEC sertraline 25 MG tablet Commonly known as: ZOLOFT tiZANidine 4 MG tablet Commonly known as: ZANAFLEX Trulicity 0.75 MG/0.5ML Sopn SC injection Generic drug: dulaglutide Where to Get Your Medications Information about where to get these medications is not yet available Ask your nurse or doctor about these medications Lantus SoloStar 100 UNIT/ML injection pen Patient Instructions: Activity: activity as tolerated Diet: clear liquids, advance as tolerated Wound Care: none needed Other: none Disposition: Discharge to Home Follow up: Patient will be followed by Yossi Golden MD in 1-2 weeks CORE MEASURES on Discharge (if applicable) PATEL/ARB in CHF: NA Statin in SC: NA ASA in SC: NA Statin in CVA: NA Antiplatelet in CVA: NA Total time spent on discharge services: 40 minutes Including the following activities: Evaluation and Management of patient Discussion with patient and/or surrogate about current care plan Coordination with Case Management and/or Manager Corporate Coordination of care with Consultants (if applicable) Coordination of care with Receiving Facility Physician (if applicable) Completion of DME forms (if applicable) Preparation of Discharge Summary Preparation of Medication Reconciliation Preparation of Discharge Prescriptions Signed: Aissatou Salcedo APRN - CHIEF MINISTER, PRECIPITATOR OPERATOR, INSTRUCTION ASSISTANT PRINCIPAL-C 07/08/2024, 11:15 AM Associated attestation - Dedra iPneda MD - 07/08/2024 11:53 AM EDT Attending Supervising Physician s Attestation Statement I have personally evaluated and examined the patient [id number] in conjunction with the nurse practitioner. I agree with management and disposition of the patient. Examined and Reviewed plan of care with INSTRUCTION ASSISTANT PRINCIPAL. Directions and discussion about care and plans. Disposition including length of stay was reviewed. Nutritional status, advanced directive and old records reviewed. In addition, Consultations and pharmacy management including drug therapy was reviewed. Therapy goals along with occupational therapy was reviewed & integrated into management including disposition. The patient was seen examined with the nurse practitioner & all direct care was reviewed with the nurse practitioner at the bedside with the patient. July 08, 2024 Electronically signed by Dedra Pineda MD documented in this encounterBon [facility] Hospital Discharge instructions Patient Education 07/05/2024 22:53:44 Abdominal Pain, Adult Abdominal Pain, Adult Pain in the abdomen (abdominal pain) can be caused by many things. In most cases, it gets better with no treatment or by being treated at home. But in some cases, it can be serious. Your health care provider will ask questions about your medical history and do a physical exam to try to figure out what is causing your pain. Follow these instructions at home: Medicines Take [id number] and prescription medicines only as told by your provider. Do not take medicines that help you poop (laxatives) unless told by your provider. General instructions Watch your condition for any changes. Drink enough fluid to keep your pee (urine) pale yellow. Contact a health care provider if: Your pain changes, gets worse, or lasts longer than expected. You have severe cramping or bloating in your abdomen, or you vomit. Your pain gets worse with meals, after eating, or with certain foods. You are constipated or have diarrhea for more than 2 3 days. You are not hungry, or you lose weight without trying. You have signs of dehydration. These may include: ?Dark pee, very little pee, or no pee. ?Cracked lips or dry mouth. ?Sleepiness or weakness. You have pain when you pee (urinate) or poop. Your abdominal pain wakes you up at night. You have blood in your pee. You have a fever. Get help right away if: You cannot stop vomiting. Your pain is only in one part of the abdomen. Pain on the right side could be caused by appendicitis. You have bloody or black poop (stool), or poop that looks like tar. You have trouble breathing. You have chest pain. These symptoms may be an emergency. Get help right away. Call 911. Do not wait to see if the symptoms will go away. Do not drive yourself to the hospital. This information is not intended to replace advice given to you by your health care provider. Make sure you discuss any questions you have with your health care provider. Document Revised: 06/26/2023 Document Reviewed: 06/26/2023 [employer] Patient Education 2023 [employer]. Follow Up Care 07/05/2024 17:40:24 With:Aly Beverly Address: [address], [address] [phone] Business (1) When:07/08/2024 Comments:Call to schedule a follow-up appointment with the city weighmaster in the next 2 to 3 days. Use the metoclopramide as needed for gastroparesis symptoms. Return to ED with any new or worsening symptoms. With:YOSSI GOLDEN Address: [address] [place] [address] Business (1) When:Within 3 Day(s) [facility] [place] 10-13-2024 NoteED Patient Education Note Gastroenterology Abdominal Pain, Adult Pain in the abdomen (abdominal pain) can be caused by many things. In most cases, it gets better with no treatment or by being treated at home. But in some cases, it can be serious. Your health care provider will ask questions about your medical history and do a physical exam to try to figure out what is causing your pain. Follow these instructions at home: Medicines ? Take zvmp-bmr-[id number] and prescription medicines only as told by your provider. ? Do not take medicines that help you poop (laxatives) unless told by your provider. General instructions ? Watch your condition for any changes. ? Drink enough fluid to keep your pee (urine) pale yellow. Contact a health care provider if: ? Your pain changes, gets worse, or lasts longer than expected. ? You have severe cramping or bloating in your abdomen, or you vomit. ? Your pain gets worse with meals, after eating, or with certain foods. ? You are constipated or have diarrhea for more than 2?3 days. ? You are not hungry, or you lose weight without trying. ? You have signs of dehydration. These may include: ? Dark pee, very little pee, or no pee. ? Cracked lips or dry mouth. ? Sleepiness or weakness. ? You have pain when you pee (urinate) or poop. ? Your abdominal pain wakes you up at night. ? You have blood in your pee. ? You have a fever. Get help right away if: ? You cannot stop vomiting. ? Your pain is only in one part of the abdomen. Pain on the right side could be caused by appendicitis. ? You have bloody or black poop (stool), or poop that looks like tar. ? You have trouble breathing. ? You have chest pain. These symptoms may be an emergency. Get help right away. Call 911. ? Do not wait to see if the symptoms will go away. ? Do not drive yourself to the hospital. This information is not intended to replace advice given to you by your health care provider. Make sure you discuss any questions you have with your health care provider. Document Revised: 06/26/2023 Document Reviewed: 06/26/2023 [employer] Patient Education ? 2023 [employer].[facility] 06-23-2024 NotePatient Education Materials Name: Gael Ruby Current Date: 06/23/2024 15:04:56 Josep[facility] : 1995 The following sheet(s) are the Patient Education Leaflets for Gael Ruby Diabetes office visit Breakfast: Jardiance + glipizide 10 mg Lunch: Dinner: Bedtime glipizide 10 mg + Lantus 25 units May call or stop by office for CGM/glucometer download and review for instrution on further med adjustment. Health Maintenance Goals Blood sugar goals ? A1c goal less than 7% to prevent acute care certified nursing assistant complications that high sugar can lead to damage of small vessels of all organs specifically eyes, heart, brain, kidneys, skin and nerves. ? Use your meter readings as a guide to improve diet and exercise. ? Fasting and premeal blood sugar goal range 80-130 ? 1-2 hours after meal, bedtime goal less than 180 Hypoglycemia treatment ? Check blood sugar if you have symptoms of low which may include sweating, hunger, lightheaded, shakiness, nausea, confusion, blurred vision If low BS less than 70 treat following Rule of 15's: ? Eat 15 g carbs: 3 glucose tabs or 4 ounces fruit juice or regular soda, or 6-7 hard candies, or 1tablespoon or sugar ? If blood sugar remains <80 after eating 15 g of carbs and waiting 15 minutes may repeat if blood sugar remains low ? No driving until glucose is normal. Instruct family members should be instructed in use of glucagon injection or nasal route in the instance of profound hypoglycemia. Diet Goals ? Continue working on proper diet choices increasing whole foodds with protein and vegetables. Avoid sugary drinks, avoid white/starchy foods (rice, pasta, potatoes), limit snacks and processed foodswith high carb foods. Weight Loss Goal ? 5-10% if BMI is over 25 through diet and exercise. Goal BMI range 18.5 to 25. Activity Goal ? Minimum 10,000 steps daily. Intentional exercise 30 minutes at least 5 days a week for a total of150 min of moderate to intense aerobic activity with goals of increasing heart rate at least 50-70%, walking is a great way to accomplish this goal Blood Pressure Goal ? Less than 130/80. Yearly urine labs and blood draw to monitor kidney function Cholesterol Goal ? LDL less than 100 and <70 in presence of heart disease. Vision ? Dilated eye exam should be performed yearly, starting within 5 years of initial diagnosis, or more often in cases of retinopathy Feet ? Daily home feet exams. Look for open wounds, developing sores, blisters, cracks, nailbed concerns. See regional account manager for toenail trimming and promptly for any sites of concern. Vaccines ? Flu Shot recommended yearly in the fall. ? COVID vaccine initial series and booster ? Pneumovax recommended once prior to age 65 and then every 5 years. ? Hepatitis B series recommended ? Zostavax recommended age 60 Healthy Meal Tips PROTEIN: Choose foods high in protein. Eating protein that is low in fat can help you control your weight. It also helps keep your heart healthy. Low-fat high-protein foods include: ? Fish ? Plant proteins, such as dry beans and peas, nuts, and soy products like tofu and soymilk ? Lean meat with all visible fat removed ? Poultry with the skin removed ? Low-fat or nonfat milk, corrage cheese, venezuelan yogurt, cheese FIBER: Fiber goal over 25 grams per day Starches, sugars, and fiber are all types of carbohydrates. Choose healthy carbohydrates high in Fiber. Fiber can help lower your cholesterol and triglycerides. Fiber is also healthy for your heart. You should have 25 grams of total fiber each day. Examples Fiber rich foods: Whole-grain breads and cereals Bulgur wheat Brown rice Whole-wheat pasta Fruits and Vegetables Dry beans and Peas CARBS: Carbohydrate goal under 150g per day Keep track of the amount of carbohydrates you eat. This can help you keep the right balance of physical activity and medicine. The amount of carbohydrates needed varies for each person depending on things such as your health, the medicines you take and how active you are. You may start with around 45 to 60 grams of carbohydrates per meal, depending on your situation. Examples of foods with less than 15 grams of carbohydrates (1 serving of carbohydrates): 1/2 cup canned or frozen fruit 1 slice Bread 1 cup of Soup Small piece of fresh fruit (4 ounces) ? cup Oatmeal ? cup Casserole ? cup Ice Cream or Sherbet ? Somali Muffin ? large Baked Potato (3 ounces) 2 small Cookies 4 to 6 Crackers 1/3 cup Rice 2-inch square Cake without Frosting 2-inch square Brownie 6 chicken Nuggets FATS: Saturated and trans fats are unhealthy for your heart. They raise LDL (bad) cholesterol. Fat is also high in calories, so it can make you gain weight. Do your best to limit unhealthy fats. To cut down on unhealthy fats and sugar, limit these foods: Butter or margarine Palm and palm kernel oils Coconut oil Cream Cheese Bullock Lunch meats Ice cream Sweet bakery goods (more content not included)...[facility] 06-21-2024 Hospital Discharge instructions Patient Education 06/20/2024 23:48:19 Gastroparesis Gastroparesis Gastroparesis is a condition in which food takes longer than normal to empty from the stomach. Thiscondition is also known as delayed gastric emptying. It is usually a long-term (chronic) condition. There is no cure, but there are treatments and things that you can do at home to help relieve symptoms. Treating the underlying condition that causes gastroparesis can also help relieve symptoms. What are the causes? In many cases, the cause of this condition is not known. Possible causes include: A hormone (endocrine) disorder, such as hypothyroidism or diabetes. A nervous system disease, such as Parkinson's disease or multiple sclerosis. Cancer, infection, or surgery that affects the stomach or vagus nerve. The vagus nerve runs from your chest, through your neck, and to the lower part of your brain. A connective tissue disorder, such as scleroderma. Certain medicines. What increases the risk? You are more likely to develop this condition if: You have certain disorders or diseases. These may include: ?An endocrine disorder. ?An eating disorder. ?Amyloidosis. ?Scleroderma. ?Parkinson's disease. ?Multiple sclerosis. ?Cancer or infection of the stomach or the vagus nerve. You have had surgery on your stomach or vagus nerve. You take certain medicines. You are female. What are the signs or symptoms? Symptoms of this condition include: Feeling full after eating very little or a loss of appetite. Nausea, vomiting, or heartburn. Bloating of your abdomen. Inconsistent blood sugar (glucose) levels on blood tests. Unexplained weight loss. Acid from the stomach coming up into the esophagus (gastroesophageal reflux). Sudden tightening (spasm) of the stomach, which can be painful. Symptoms may come and go. Some people may not notice any symptoms. How is this diagnosed? This condition is diagnosed with tests, such as: Tests that check how long it takes food to move through the stomach and intestines. These tests include: ?Upper gastrointestinal (GI) series. For this test, you drink a liquid that shows up well on X-rays, and then X-rays are taken of your intestines. ?Gastric emptying scintigraphy. For this test, you eat food that contains a small amount of radioactive material, and then scans are taken. ?Wireless capsule GI monitoring system. For this test, you swallow a pill (capsule) that records information about how foods and fluid move through your stomach. Gastric manometry. For this test, a tube is passed down your throat and into your stomach to measure electrical and muscular activity. Endoscopy. For this test, a long, thin tube with a camera and light on the end is passed down your throat and into your stomach to check for problems in your stomach lining. Ultrasound. This test uses sound waves to create images of the inside of your body. This can help rule out gallbladder disease or pancreatitis as a cause of your symptoms. How is this treated? There is no cure for this condition, but treatment and home care may relieve symptoms. Treatment may include: Treating the underlying cause. Managing your symptoms by making changes to your diet and exercise habits. Taking medicines to control nausea and vomiting and to stimulate stomach muscles. Getting food through a feeding tube in the hospital. This may be done in severe cases. Having surgery to insert a device called a gastric electrical stimulator into your body. This device helps improve stomach emptying and control nausea and vomiting. Follow these instructions at home: Take mcvv-egk-xqbuafk and prescription medicines only as told by your health care provider. Follow instructions from your health care provider about eating or drinking restrictions. Your health care provider may recommend that you: ?Eat smaller meals more often. ?Eat low-fat foods. ?Eat low-fiber forms of high-fiber foods. For example, eat cooked vegetables instead of raw vegetables. ?Have only liquid foods instead of solid foods. Liquid foods are easier to digest. Drink enough fluid to keep your urine pale yellow. Exercise as often as told by your health care provider. Keep all follow-up visits. This is important. Contact a health care provider if you: Notice that your symptoms do not improve with treatment. Have new symptoms. Get help right away if you: Have severe pain in your abdomen that does not improve with treatment. Have nausea that is severe or does not go away. Vomit every time you drink fluids. Summary Gastroparesis is a long-term (chronic) condition in which food takes longer than normal to empty from the stomach. Symptoms include nausea, vomiting, heartburn, bloating of your abdomen, and loss of appetite. Eating smaller portions, low-fat foods, and low-fiber forms of high-fiber foods may help you manageyour symptoms. Get help right away if you have severe pain in your abdomen. This information is not intended to replace advice given to you by your health care provider. Make sure you discuss any questions you have with your health care provider. Document Revised: 01/16/2021 Document Reviewed: 01/16/2021 [employer] Patient Education 2023 [employer]. Follow Up Care 06/20/2024 18:43:23 With:YOSSI GOLDEN Address: [address] [place] [address] Business (1) When:Within 3 Day(s) [facility] 09-28-2024 NoteED Patient Education Note Gastroenterology Gastroparesis Gastroparesis is a condition in which food takes longer than normal to empty from the stomach. Thiscondition is also known as delayed gastric emptying. It is usually a long-term (chronic) condition. There is no cure, but there are treatments and things that you can do at home to help relieve symptoms. Treating the underlying condition that causes gastroparesis can also help relieve symptoms. What are the causes? In many cases, the cause of this condition is not known. Possible causes include: ? A hormone (endocrine) disorder, such as hypothyroidism or diabetes. ? A nervous system disease, such as Parkinson's disease or multiple sclerosis. ? Cancer, infection, or surgery that affects the stomach or vagus nerve. The vagus nerve runs from your chest, through your neck, and to the lower part of your brain. ? A connective tissue disorder, such as scleroderma. ? Certain medicines. What increases the risk? You are more likely to develop this condition if: ? You have certain disorders or diseases. These may include: ? An endocrine disorder. ? An eating disorder. ? Amyloidosis. ? Scleroderma. ? Parkinson's disease. ? Multiple sclerosis. ? Cancer or infection of the stomach or the vagus nerve. ? You have had surgery on your stomach or vagus nerve. ? You take certain medicines. ? You are female. What are the signs or symptoms? Symptoms of this condition include: ? Feeling full after eating very little or a loss of appetite. ? Nausea, vomiting, or heartburn. ? Bloating of your abdomen. ? Inconsistent blood sugar (glucose) levels on blood tests. ? Unexplained weight loss. ? Acid from the stomach coming up into the esophagus (gastroesophageal reflux). ? Sudden tightening (spasm) of the stomach, which can be painful. Symptoms may come and go. Some people may not notice any symptoms. How is this diagnosed? This condition is diagnosed with tests, such as: ? Tests that check how long it takes food to move through the stomach and intestines. These tests include: ? Upper gastrointestinal (GI) series. For this test, you drink a liquid that shows up well on X-rays, and then X-rays are taken of your intestines. ? Gastric emptying scintigraphy. For this test, you eat food that contains a small amount of radioactive material, and then scans are taken. ? Wireless capsule GI monitoring system. For this test, you swallow a pill (capsule) that records information about how foods and fluid move through your stomach. ? Gastric manometry. For this test, a tube is passed down your throat and into your stomach to measure electrical and muscular activity. ? Endoscopy. For this test, a long, thin tube with a camera and light on the end is passed down your throat and into your stomach to check for problems in your stomach lining. ? Ultrasound. This test uses sound waves to create images of the inside of your body. This can helprule out gallbladder disease or pancreatitis as a cause of your symptoms. How is this treated? There is no cure for this condition, but treatment and home care may relieve symptoms. Treatment may include: ? Treating the underlying cause. ? Managing your symptoms by making changes to your diet and exercise habits. ? Taking medicines to control nausea and vomiting and to stimulate stomach muscles. ? Getting food through a feeding tube in the hospital. This may be done in severe cases. ? Having surgery to insert a device called a gastric electrical stimulator into your body. This device helps improve stomach emptying and control nausea and vomiting. Follow these instructions at home: ? Take ikra-oaa-gzsoqrc and prescription medicines only as told by your health care provider. ? Follow instructions from your health care provider about eating or drinking restrictions. Your health care provider may recommend that you: ? Eat smaller meals more often. ? Eat low-fat foods. ? Eat low-fiber forms of high-fiber foods. For example, eat cooked vegetables instead of raw vegetables. ? Have only liquid foods instead of solid foods. Liquid foods are easier to digest. ? Drink enough fluid to keep your urine pale yellow. ? Exercise as often as told by your health care provider. ? Keep all follow-up visits. This is important. Contact a health care provider if you: ? Notice that your symptoms do not improve with treatment. ? Have new symptoms. Get help right away if you: ? Have severe pain in your abdomen that does not improve with treatment. ? Have nausea that is severe or does not go away. ? Vomit every time you drink fluids. Summary ? Gastroparesis is a long-term (chronic) condition in which food takes longer than normal to empty from the stomach. ? Symptoms include nausea, vomiting, heartburn, bloating of your abdomen, and loss of appetite. ? Eating smaller portions, low-fat foods, and low-fiber forms of (more content not included)...[facility]09-28-2024 Evaluation + Plan note Extracted from: Title:ED Note Author:Shikha Butler DOah Jason Date :06/20/24 Epigastric abdominal pain (R 10.13: Epigastric pain) Gastroparesis (K31.84: Gastroparesis) Orders: Al hydroxide/Mg hydroxide/simethicone, 30 mL, Susp-Oral, Oral, Once, Stop date 06/20/24 19:23:00 EDT, STAT, Start date 06/20/24 19:23:00 EDT diphenhydrAMINE, 25 mg = 0.5 mL, Injection, IV Push, Once, Stop date 06/20/24 22:59:00 EDT, STAT, Start date 06/20/24 22:59:00 EDT, 06/20/24 22:59:00 EDT famotidine, 20 mg = 2 mL, Soln-IV, IV Push, Once, Stop date 06/20/24 20:45:00 EDT, STAT, Start date 06/20/24 20:45:00 EDT, 06/20/24 20:45:00 EDT lidocaine topical, 200 mg, 10 mL, Soln-Oral, Oral, Once, Stop date 06/20/24 19:23:00 EDT, STAT, Start date 06/20/24 19:23:00 EDT metoclopramide, 10 mg = 2 mL, Injection, IV Push, Once, Stop date 06/20/24 22:59:00 EDT, STAT, Start date 06/20/24 22:59:00 EDT, 06/20/24 22:59:00 EDT morphine, 2 mg = 1 mL, Injection, IV Push, Once, Stop date 06/20/24 22:59:00 EDT, STAT, Start date 06/20/24 22:59:00 EDT, 06/20/24 22:59:00 EDT morphine, 2 mg = 1 mL, Injection, IV Push, Once, Stop date 06/20/24 20:45:00 EDT, STAT, Start date 06/20/24 20:45:00 EDT, 06/20/24 20:45:00 EDT promethazine 12.5 mg + Sodium Chloride 0.9% intravenous solution 50 mL, Injection, IV Piggyback, Once, Stop date 06/20/24 19:23:00 EDT, STAT, Start date 06/20/24 19:23:00 EDT, 151.5 mL/hr, Infuse over 20 minute(s) Sodium Chloride 0.9% intravenous solution, 1,000 mL, Soln-IV, IV, Once, Stop date 06/20/24 19:43:00 EDT, STAT, Start date 06/20/24 19:43:00 EDT, Infuse over 61, minute(s) Sodium Chloride 0.9% intravenous solution, 1,000 mL, Soln-IV, IV, Once, Stop date 06/20/24 18:55:00 EDT, STAT, Start date 06/20/24 18:55:00 EDT, Infuse over 61, minute(s) Basic Metabolic Panel CBC w/ Auto Diff eGFR Extra Blue Tube Hepatic Function Panel Lipase Level Saline Lock Insert U Beta Hcg Qual UA with Cult Rflx Future Scheduled Tests Radiology* NM Gastric Emptying Study 05/25/24 [facility] [id number] Notept to ed for evaluation of unresolved cough for 7 days s/p zpak, one home dose of cough med and nebulizer tx. pt also complaint that cough is painful and her gastroparesis is making her have abdominal pain. Electronically signed by James Peralta 06/14/24 15:[facility] Note* Telephone Encounter - Yossi Golden MD - 06/09/2024 4:00 PM EDT Unclear what patient felt but possibilities include cyst or even stool. CT normal and no abnormalities noted on abdominal wall. Recommend monitor. [id number] Telephone encounter Note* Telephone Encounter - Yossi Golden MD - 06/09/2024 4:00 PM EDT ----- Message from Lyssa Lake sent at 06/09/2024 2:37 PM EDT ----- Regarding: Patient felt a mass Gael Ruby had a CT done at [facility] yesterday. She was lying on the floor today and felt amass on the right side of her stomach about mid-way down. The mass felt fluid-filled and hard. It is not hot. Her number is [phone]. [facility] [id number] Miscellaneous Notes* Telephone Encounter - Yossi Golden MD - 06/09/2024 4:00 PM EDT Unclear what patient felt but possibilities include cyst or even stool. CT normal and no abnormalities noted on abdominal wall. Recommend monitor. * Telephone Encounter - Yossi Golden MD - 06/09/2024 4:00 PM EDT ----- Message from Lyssa Lake sent at 06/09/2024 2:37 PM EDT ----- Regarding: Patient felt a mass Gael Ruby had a CT done at [facility] yesterday. She was lying on the floor today and felt amass on the right side of her stomach about mid-way down. The mass felt fluid-filled and hard. It is not hot. Her number is [phone]. documented in this encounterDo[facility] [id number] Evaluation + Plan note Extracted from: Title:ED Note Author:Chavo Squires DO Date :06/09/24 Chronic abdominal pain (R10. 9: Unspecified abdominal pain) Gastroparesis (K31.84: Gastroparesis) Other chronic pain (G89.29: Other chronic pain) Orders: dicyclomine, 20 mg = 2 mL, Injection, IntraMuscular, Once, Stop date 06/09/24 3:02:00 EDT, STAT, Start date 06/09/24 3:02:00 EDT, 06/09/24 3:02:00 EDT haloperidol, 5 mg = 1 mL, Injection, IntraMuscular, Once, Stop date 06/09/24 5:00:00 EDT, Routine, Start date 06/09/24 5:00:00 EDT, 06/09/24 4:19:00 EDT metoclopramide, 10 mg = 2 mL, Injection, IV Push, Once, Stop date 06/09/24 3:02:00 EDT, STAT, Start date 06/09/24 3:02:00 EDT, 06/09/24 3:02:00 EDT metoclopramide, 10 mg = 1 tab(s), Oral, q6hr, # 12 tab(s), Refills(s) 0, Pharmacy: [facility] [id number], 173, cm, 06/09/24 2:42:00 EDT, Height/Length Dosing, 115.4, kg, 06/09/24 2:42:00 EDT, Weight Dosing morphine, 4 mg = 1 mL, Injection, IV Push, Once, Stop date 06/09/24 4:11:00 EDT, STAT, Start date 06/09/24 4:11:00 EDT, 06/09/24 4:11:00 EDT pantoprazole, 40 mg = 10 mL, Injection, IV Push, Once, Stop date 06/09/24 3:02:00 EDT, STAT, Start date 06/09/24 3:02:00 EDT, 06/09/24 3:02:00 EDT promethazine, 25 mg = 1 supp, Rectal, q6hr, PRN Nausea/Vomiting, # 6 EA, Refills(s) 0, Pharmacy: [facility] [id number], 173, cm, 06/09/24 2:42:00 EDT, Height/Length Dosing, 115.4, kg, 06/09/24 2:42:00 EDT, Weight Dosing Sodium Chloride 0.9% intravenous solution, 1,000 mL, Soln-IV, IV, Once, Stop date 06/09/24 3:02:00 EDT, STAT, Start date 06/09/24 3:02:00 EDT, Infuse over 61, minute(s) sucralfate, 1 gm = 1 tab(s), Oral, QID, X 7 day(s), # 28 tab(s), Refills(s) 0, [facility] [id number], 173, cm, 06/09/24 2:42:00 EDT, Height/Length Dosing, 115.4, kg, 06/09/24 2:42:00 EDT, Weight Dosing Basic Metabolic Panel Beta hCG Qual CBC w/ Auto Diff eGFR Hepatic Function Panel Lipase Level UA with Cult Rflx Future Appointments Appointment Date:06/18/2024 10:30:00 AM Scheduled Provider: Location:[facility] Appointment Type:Surgery FT Future Scheduled Tests Radiology* NM Gastric Emptying Study 05/25/24 [facility] 09-17-2024 Hospital Discharge instructions Patient Education 06/09/2024 05:22:38 Gastroparesis Gastroparesis Gastroparesis is a condition in which food takes longer than normal to empty from the stomach. Thiscondition is also known as delayed gastric emptying. It is usually a long-term (chronic) condition. There is no cure, but there are treatments and things that you can do at home to help relieve symptoms. Treating the underlying condition that causes gastroparesis can also help relieve symptoms. What are the causes? In many cases, the cause of this condition is not known. Possible causes include: A hormone (endocrine) disorder, such as hypothyroidism or diabetes. A nervous system disease, such as Parkinson's disease or multiple sclerosis. Cancer, infection, or surgery that affects the stomach or vagus nerve. The vagus nerve runs from your chest, through your neck, and to the lower part of your brain. A connective tissue disorder, such as scleroderma. Certain medicines. What increases the risk? You are more likely to develop this condition if: You have certain disorders or diseases. These may include: ?An endocrine disorder. ?An eating disorder. ?Amyloidosis. ?Scleroderma. ?Parkinson's disease. ?Multiple sclerosis. ?Cancer or infection of the stomach or the vagus nerve. You have had surgery on your stomach or vagus nerve. You take certain medicines. You are female. What are the signs or symptoms? Symptoms of this condition include: Feeling full after eating very little or a loss of appetite. Nausea, vomiting, or heartburn. Bloating of your abdomen. Inconsistent blood sugar (glucose) levels on blood tests. Unexplained weight loss. Acid from the stomach coming up into the esophagus (gastroesophageal reflux). Sudden tightening (spasm) of the stomach, which can be painful. Symptoms may come and go. Some people may not notice any symptoms. How is this diagnosed? This condition is diagnosed with tests, such as: Tests that check how long it takes food to move through the stomach and intestines. These tests include: ?Upper gastrointestinal (GI) series. For this test, you drink a liquid that shows up well on X-rays, and then X-rays are taken of your intestines. ?Gastric emptying scintigraphy. For this test, you eat food that contains a small amount of radioactive material, and then scans are taken. ?Wireless capsule GI monitoring system. For this test, you swallow a pill (capsule) that records information about how foods and fluid move through your stomach. Gastric manometry. For this test, a tube is passed down your throat and into your stomach to measure electrical and muscular activity. Endoscopy. For this test, a long, thin tube with a camera and light on the end is passed down your throat and into your stomach to check for problems in your stomach lining. Ultrasound. This test uses sound waves to create images of the inside of your body. This can help rule out gallbladder disease or pancreatitis as a cause of your symptoms. How is this treated? There is no cure for this condition, but treatment and home care may relieve symptoms. Treatment may include: Treating the underlying cause. Managing your symptoms by making changes to your diet and exercise habits. Taking medicines to control nausea and vomiting and to stimulate stomach muscles. Getting food through a feeding tube in the hospital. This may be done in severe cases. Having surgery to insert a device called a gastric electrical stimulator into your body. This device helps improve stomach emptying and control nausea and vomiting. Follow these instructions at home: Take oysl-kwk-rnxeqhu and prescription medicines only as told by your health care provider. Follow instructions from your health care provider about eating or drinking restrictions. Your health care provider may recommend that you: ?Eat smaller meals more often. ?Eat low-fat foods. ?Eat low-fiber forms of high-fiber foods. For example, eat cooked vegetables instead of raw vegetables. ?Have only liquid foods instead of solid foods. Liquid foods are easier to digest. Drink enough fluid to keep your urine pale yellow. Exercise as often as told by your health care provider. Keep all follow-up visits. This is important. Contact a health care provider if you: Notice that your symptoms do not improve with treatment. Have new symptoms. Get help right away if you: Have severe pain in your abdomen that does not improve with treatment. Have nausea that is severe or does not go away. Vomit every time you drink fluids. Summary Gastroparesis is a long-term (chronic) condition in which food takes longer than normal to empty from the stomach. Symptoms include nausea, vomiting, heartburn, bloating of your abdomen, and loss of appetite. Eating smaller portions, low-fat foods, and low-fiber forms of high-fiber foods may help you manageyour symptoms. Get help right away if you have severe pain in your abdomen. This information is not intended to replace advice given to you by your health care provider. Make sure you discuss any questions you have with your health care provider. Document Revised: 01/16/2021 Document Reviewed: 01/16/2021 [employer] Patient Education 2023 [employer]. 06/09/2024 05:22:38 Abdominal Pain, Adult, [id number] Abdominal Pain, Adult Many things can cause belly (abdominal) pain. In most cases, belly pain is not a serious problem and can be watched and treated at home. But in some cases, it can be serious. Your doctor will try to find the cause of your belly pain. Follow these instructions at home: Medicines Take pwwa-dcb-iccjhcg and prescription medicines only as told by your doctor. Do not take medicines that help you poop (laxatives) unless told by your doctor. General instructions Watch your belly pain for any changes. Tell your doctor if the pain gets worse. Drink enough fluid to keep your pee (urine) pale yellow. Contact a doctor if: Your belly pain changes or gets worse. You have very bad cramping or bloating in your belly. You vomit. Your pain gets worse with meals, after eating, or with certain foods. You have trouble pooping or have watery poop for more than 2 3 days. You are not hungry, or you lose weight without trying. You have signs of not getting enough fluid or water (dehydration). These may include: ?Dark pee, very little pee, or no pee. ?Cracked lips or dry mouth. ?Feeling sleepy or weak. You have pain when you pee or poop. Your belly pain wakes you up at night. You have blood in your pee. You have a fever. Get help right away if: You cannot stop vomiting. Your pain is only in one part of your belly, like on the right side. You have bloody or black poop, or poop that looks like tar. You have trouble breathing. You have chest pain. These symptoms may be an emergency. Get help right away. Call 911. Do not wait to see if the symptoms will go away. Do not drive yourself to the hospital. This information is not intended to replace advice given to you by your health care provider. Make sure you discuss any questions you have with your health care provider. Document Revised: 06/26/2023 Document Reviewed: 06/26/2023 [employer] Patient Education 2023 [employer]. Follow Up Care 06/09/2024 02:28:25 With:YOSSI GOLDEN Address: [address] [place], [place] [address] [address] Business (1) When:06/12/2024 05:13:40 Comments:You can use the nausea medication as prescribed as needed for nausea and vomiting. Please follow-upwith your primary care doctor in the next 2 to 3 days for further evaluation and management. [facility] 09-17-2024 NoteED Patient Education Note Gastroenterology Gastroparesis Gastroparesis is a condition in which food takes longer than normal to empty from the stomach. Thiscondition is also known as delayed gastric emptying. It is usually a long-term (chronic) condition. There is no cure, but there are treatments and things that you can do at home to help relieve symptoms. Treating the underlying condition that causes gastroparesis can also help relieve symptoms. What are the causes? In many cases, the cause of this condition is not known. Possible causes include: ? A hormone (endocrine) disorder, such as hypothyroidism or diabetes. ? A nervous system disease, such as Parkinson's disease or multiple sclerosis. ? Cancer, infection, or surgery that affects the stomach or vagus nerve. The vagus nerve runs from your chest, through your neck, and to the lower part of your brain. ? A connective tissue disorder, such as scleroderma. ? Certain medicines. What increases the risk? You are more likely to develop this condition if: ? You have certain disorders or diseases. These may include: ? An endocrine disorder. ? An eating disorder. ? Amyloidosis. ? Scleroderma. ? Parkinson's disease. ? Multiple sclerosis. ? Cancer or infection of the stomach or the vagus nerve. ? You have had surgery on your stomach or vagus nerve. ? You take certain medicines. ? You are female. What are the signs or symptoms? Symptoms of this condition include: ? Feeling full after eating very little or a loss of appetite. ? Nausea, vomiting, or heartburn. ? Bloating of your abdomen. ? Inconsistent blood sugar (glucose) levels on blood tests. ? Unexplained weight loss. ? Acid from the stomach coming up into the esophagus (gastroesophageal reflux). ? Sudden tightening (spasm) of the stomach, which can be painful. Symptoms may come and go. Some people may not notice any symptoms. How is this diagnosed? This condition is diagnosed with tests, such as: ? Tests that check how long it takes food to move through the stomach and intestines. These tests include: ? Upper gastrointestinal (GI) series. For this test, you drink a liquid that shows up well on X-rays, and then X-rays are taken of your intestines. ? Gastric emptying scintigraphy. For this test, you eat food that contains a small amount of radioactive material, and then scans are taken. ? Wireless capsule GI monitoring system. For this test, you swallow a pill (capsule) that records information about how foods and fluid move through your stomach. ? Gastric manometry. For this test, a tube is passed down your throat and into your stomach to measure electrical and muscular activity. ? Endoscopy. For this test, a long, thin tube with a camera and light on the end is passed down your throat and into your stomach to check for problems in your stomach lining. ? Ultrasound. This test uses sound waves to create images of the inside of your body. This can helprule out gallbladder disease or pancreatitis as a cause of your symptoms. How is this treated? There is no cure for this condition, but treatment and home care may relieve symptoms. Treatment may include: ? Treating the underlying cause. ? Managing your symptoms by making changes to your diet and exercise habits. ? Taking medicines to control nausea and vomiting and to stimulate stomach muscles. ? Getting food through a feeding tube in the hospital. This may be done in severe cases. ? Having surgery to insert a device called a gastric electrical stimulator into your body. This device helps improve stomach emptying and control nausea and vomiting. Follow these instructions at home: ? Take ackq-tkh-cwhgmxw and prescription medicines only as told by your health care provider. ? Follow instructions from your health care provider about eating or drinking restrictions. Your health care provider may recommend that you: ? Eat smaller meals more often. ? Eat low-fat foods. ? Eat low-fiber forms of high-fiber foods. For example, eat cooked vegetables instead of raw vegetables. ? Have only liquid foods instead of solid foods. Liquid foods are easier to digest. ? Drink enough fluid to keep your urine pale yellow. ? Exercise as often as told by your health care provider. ? Keep all follow-up visits. This is important. Contact a health care provider if you: ? Notice that your symptoms do not improve with treatment. ? Have new symptoms. Get help right away if you: ? Have severe pain in your abdomen that does not improve with treatment. ? Have nausea that is severe or does not go away. ? Vomit every time you drink fluids. Summary ? Gastroparesis is a long-term (chronic) condition in which food takes longer than normal to empty from the stomach. ? Symptoms include nausea, vomiting, heartburn, bloating of your abdomen, and loss of appetite. ? Eating smaller portions, low-fat foods, and low-fiber forms of (more content not included)...[facility]09-16-2024 History of Present illness Narrative* Yossi Golden MD - 06/08/2024 2:21 PM EDTAssociated Problem(s): Type 2 diabetes mellitus with hyperglycemia, with long-term current use of insulin (CMS/HCC) BS improved and continue lantus. Stick to ADA diet and limit carbs. * Yossi Golden MD - 06/08/2024 2:20 PM EDTAssociated Problem(s): Major depressive disorder, recurrent, moderate (HCC) (CMS/HCC) Worsening symptoms and no change with increased zoloft. Stop zoloft and try prozac. Warned will take 2-3 weeks to notice improvement in mood. * Yossi Golden MD - 06/08/2024 2:20 PM EDTAssociated Problem(s): Diabetic gastroparesis associated with type 2 diabetes mellitus ([facility]) Continued symptoms and stop trulicity. Start norco PRN for pain. * Yossi Golden MD - 06/08/2024 1:30 PM EDT Images from the original note were not included. Subjective Patient ID: Gael Ruby is a 28 y.o. female who presents for No chief complaint on file.. ER follow up from 06/08 and 05/26 for abdominal pain. Recently diagnosed with gastroparesis and continued GI symptoms. Severe abdominal pain, nausea, and emesis. Not able to eat much due to symptoms. Started reglan but no change in symptoms. Review of medication shows patient remains on trulicity and due for injection tomorrow. BS improved and around 150. Tries to stick to ADA diet but not eating much due to continued GI symptoms. Depression worse. Down, sad, and no motivation. Not want to do anything or be around others. Not want to leave house. Increased zoloft but no change in symptoms. Review of Systems Respiratory: Negative for cough, shortness of breath and wheezing. Cardiovascular: Negative for chest pain and palpitations. Gastrointestinal: Negative for abdominal pain, diarrhea, nausea and vomiting. Genitourinary: Negative for dysuria. Objective Physical Exam Constitutional: General: She is not in acute distress. Appearance: Normal appearance. HENT: Head: Normocephalic. Right Ear: Tympanic membrane normal. Left Ear: Tympanic membrane normal. Eyes: Extraocular Movements: Extraocular movements intact. Pupils: Pupils are equal, round, and reactive to light. Cardiovascular: Rate and Rhythm: Normal rate and regular rhythm. Heart sounds: No murmur heard. No friction rub. No gallop. Pulmonary: Effort: Pulmonary effort is normal. Breath sounds: Normal breath sounds. No wheezing, rhonchi or rales. Abdominal: General: Bowel sounds are normal. There is no distension. Palpations: Abdomen is soft. Tenderness: There is no abdominal tenderness. There is no guarding or rebound. Musculoskeletal: Cervical back: Neck supple. Right lower leg: No edema. Left lower leg: No edema. Neurological: Mental Status: She is alert. Assessment/Plan Problem List Items Addressed This Visit Major depressive disorder, recurrent, moderate (HCC) (CMS/HCC) Worsening symptoms and no change with increased zoloft. Stop zoloft and try prozac. Warned will take 2-3 weeks to notice improvement in mood. Relevant Medications FLUoxetine (PROzac) 40 MG capsule Type 2 diabetes mellitus with hyperglycemia, with long-term current use of insulin (CMS/HCC) BS improved and continue lantus. Stick to ADA diet and limit carbs. Diabetic gastroparesis associated with type 2 diabetes mellitus (CMS/HCC) - Primary Continued symptoms and stop trulicity. Start norco PRN for pain. Relevant Medications HYDROcodone-acetaminophen ([place]) 5-325 MG tablet documented in this encounterDo[facility] [id number] NoteDischarge Summary Admission and Discharge Information Admit Date/Time:05/23/2024 01:24 Admitting Physician - Melodie GREWAL, Naima Consulting Physician - Beto GREWAL, Aly Whitten Admitting Diagnoses: Discharge Order Date Discharge Patient - Ordered -- 05/24/24 13:22:00 EDT, To home w/ f/u appts as written. Discharge Diagnoses 1. Gastroparesis, 05/23/2024 2. Type 2 diabetes mellitus, 05/23/2024 3. Essential hypertension, 05/23/2024 4. LINA (generalized anxiety disorder), 05/23/2024 5. Morbid obesity, 05/23/2024 Please refer to my progress note for in-depth information regarding each individual diagnosis Procedure History section (2017), section (2016), Bilateral oophorectomy, section, Cholecystectomy, Extraction of wisdom tooth, Laparoscopic hysterectomy, Laparoscopy, Tear duct, Tonsillectomy. Hospital Course 28-year-old female with PMH of current chronic smoker, HTN, factor V Leiden, IDDM T2, gastroparesis, anxiety, morbid obesity. History of PE?no longer on AC. -Patient presented to the ED for complaints of upper abdominal pain and vomiting. He has been seen multiple times at [facility] in [facility], not admitted, usually medicated and then discharged home -Per previous provider note gastric emptying study on 05/19/2024 showed severe delayed emptying. -CT A/P on 03/2024: showed known hepatosplenomegaly and hepatic steatosis -A1c 9.8% on 04/2024 ?> uncontrolled. -This a.m. patient was having abdominal pain after eating breakfast, we discussed the need to discontinue IV morphine as this is not appropriate in the setting of gastroparesis, by this afternoon shestates she is ready for discharge, she is eating her lunch without complaints. Gastroparesis (K31.84: Gastroparesis) Consult GI: -I spoke with Dr. Beto lee a.m. via phone: Provided prescription for Zofran as needed, Reglan 10 mg 4 times daily AC as needed, order outpt. gastric emptying study w/ results to his office, minimize/avoid narcotics and anticholinergics as much as possible, she may discharge from GI standpoint and follow-up with clinic. Type 2 diabetes mellitus (E11.9: Type 2 diabetes mellitus without complications) -Educated on the need for weight loss, following an ADA restricted diet and recommendation to follow-up with inner tube inserter that can be arranged through her PCP office. Morbid obesity (E66.01: Morbid (severe) obesity due to excess calories) -BMI 35 + co-morbid conditions + hepatic steatosis on imaging -Educated on need for lifestyle modifications with goal of weight loss as obesity has a negative impact on co-morbid conditions. -Patient states that all admitting symptoms have significantly improved and/or resolved since my initial eval this a.m.. Patient is eating and drinking without complaints, denies being SOB, chest pain, pressure, palpitations or difficulty with voiding. Patient is eager to be discharged to home withf/u appts as written --Other chronic medical conditions as outlined in note. Refer to d/c plan below: -Case reviewed and discussed with Dr. Beverly who is in agreement with current d/c plan. Case will be reviewed and discussed with PCP or bond runner MD once the hospital diesel crane operator is able to reach him/her. I spent a lengthy amount of time with the patient and/or family (teach back method) reviewing discharge instructions, medications, medication use. Patient to follow-up with PCP and specialty providers as scheduled on discharge. Patient being discharged in medically/hemodynamically stable cond. with instructions to return to the hospital if symptoms worsen or recur. This report was transcribed using voice recognition software. Every effort was made to ensure accuracy, however, inadvertently computerized mechanical commissioning engineer mistakes may be present. Significant Findings No qualifying data available. Services Consulted Consult to GI - Ordered -- 05/23/24 3:20:00 EDT, Severe gastroparesis, Consult and Co-manage Consult to [employer] - Ordered -- 05/23/24 3:10:42 EDT Physical Exam Vitals & Measurements T: 36.5 ?C(Oral) TMIN: 36.4 ?C(Axillary) TMAX: 36.6 ?C(Axillary) HR: 90(Monitored) RR: 18 BP: 110/71 SpO2: 96% WT: 113.4 kg Laboratory Results WBC: 6.3 E9/L (05/24/24 07:59:00) Sodium Lvl: 140 mmol/L (05/24/24 07:59:00) Potassium Lvl: 4.2 mmol/L (05/24/24 07:59:00) Chloride: 108 mmol/L (05/24/24 07:59:00) CO2: 26 mmol/L (05/24/24 07:59:00) AGAP: 10 mEq/L (05/24/24 07:59:00) Tests Performed CT Abdomen/Pelvis w/ Contrast Discharge Plan Patient Discharge Condition Hemodynamically stable condition Discharge Disposition Discharged to - Home independently Discharge Status: Improved Discharge Instructions Given: To patient Discharge disposition: Home Prescriptions reviewed with Patient 53 minutes spent in discharge time with patient, Dr. Beverly, patient's at bedside, collaborating MD, nursing staff, CRM, Discharge Diet Discharge (more content not included)...[facility] InstituteComment on above:Result Comment: Electronically Signed By: YANET MALCOLM, Tessie\.br\Date and Time Signed: 05/24/24 13:33 EDT\.br\Electronically Co-Signed By: Chandrakant GREWAL, Byron Hough\.br\Date and Time Co-Signed: 06/01/24 07:13 [id number] Hospital Discharge instructions* Discharge Instructions* Nilda Rich DO - 05/26/2024 2:59 PM EDT You are seen in the ER today for your abdominal pain. We gave you multiple medications which seem to marginally improve your symptoms. Will discharge you with a medication called Compazine. Please stop taking Zofran while you are taking the Compazine. Please return to the ER for any new or worsening symptoms. Otherwise, please follow-up your primary care provider within the next 2 to 3 days to bereassessed. PLEASE RETURN TO THE EMERGENCY DEPARTMENT IMMEDIATELY if you develop any concerning symptoms such as: chest pain, shortness of breath, feeling like your heart is racing, high fever not relieved by acetaminophen (Tylenol) and/or ibuprofen (Motrin / Advil), chills, persistent nausea and/or vomiting, loss of consciousness, numbness, weakness or tingling in the arms or legs or change in color of the extremities, changes in mental status, persistent or severe headache, blurry vision, loss of bladder/ bowel control, unable to follow up with your physician, or other any other care or concern. documented in this encounterB[facility] Evaluation + Plan note Future Scheduled Tests Radiology* NM Gastric Emptying Study 05/25/24 [facility] 09-01-2024 Hospital Discharge instructions Patient Education 05/24/2024 13:22:38 Obesity, Adult, [id number] Obesity, Adult Obesity is having too much body fat. Being obese means that your weight is more than what is healthy for you. BMI (body mass index) is a number that explains how much body fat you have. If you have a BMI of 30or more, you are obese. Obesity can cause serious health problems, such as: Stroke. Coronary artery disease (CAD). Type 2 diabetes. Some types of cancer. High blood pressure (hypertension). High cholesterol. Gallbladder stones. Obesity can also contribute to: Osteoarthritis. Sleep apnea. Infertility problems. What are the causes? Eating meals each day that are high in calories, sugar, and fat. Drinking a lot of drinks that have sugar in them. Being born with genes that may make you more likely to become obese. Having a medical condition that causes obesity. Taking certain medicines. Sitting a lot (having a sedentary lifestyle). Not getting enough sleep. What increases the risk? Having a family history of obesity. Living in an area with limited access to: ?[place], recreation centers, or sidewalks. ?Healthy food choices, such as grocery stores and [employer]. What are the signs or symptoms? The main sign is having too much body fat. How is this treated? Treatment for this condition often includes changing your lifestyle. Treatment may include: Changing your diet. This may include making a healthy meal plan. Exercise. This may include activity that causes your heart to beat faster (aerobic exercise) and strength training. Work with your doctor to design a program that works for you. Medicine to help you lose weight. This may be used if you are not able to lose one pound a week after 6 weeks of healthy eating and more exercise. Treating conditions that cause the obesity. Surgery. Options may include gastric banding and gastric bypass. This may be done if: ?Other treatments have not helped to improve your condition. ?You have a BMI of 40 or higher. ?You have life-threatening health problems related to obesity. Follow these instructions at home: Eating and drinking Follow advice from your doctor about what to eat and drink. Your doctor may tell you to: ?Limit fast food, sweets, and processed snack foods. ?Choose low-fat options. For example, choose low-fat milk instead of whole milk. ?Eat five or more servings of fruits or vegetables each day. ?Eat at home more often. This gives you more control over what you eat. ?Choose healthy foods when you eat out. ?Learn to read food labels. This will help you learn how much food is in one serving. ?Keep low-fat snacks available. ?Avoid drinks that have a lot of sugar in them. These include soda, fruit juice, iced tea with sugar, and flavored milk. Drink enough water to keep your pee (urine) pale yellow. Do not go on fad diets. Physical activity Exercise often, as told by your doctor. Most adults should get up to 150 minutes of moderate-intensity exercise every week.Ask your doctor: ?What types of exercise are safe for you. ?How often you should exercise. Warm up and stretch before being active. Do slow stretching after being active (cool down). Rest between times of being active. Lifestyle Work with your doctor and a food expert (dietitian) to set a weight-loss goal that is best for you. Limit your screen time. Find ways to reward yourself that do not involve food. Do not drink alcohol if: ?Your doctor tells you not to drink. ?You are , may be , or are planning to become . If you drink alcohol: ?Limit how much you have to: ?0 1 drink a day for women. ?0 2 drinks a day for men. ?Know how much alcohol is in your drink. In the [place] one drink equals one 12 oz bottle of beer (355 mL), one 5 oz glass of wine (148 mL), or one 1 oz glass of hard liquor (44 mL). General instructions Keep a weight-loss journal. This can help you keep track of: ?The food that you eat. ?How much exercise you get. Take [id number]-[id number] and prescription medicines only as told by your doctor. Take vitamins and supplements only as told by your doctor. Think about joining a support group. Pay attention to your mental health as obesity can lead to depression or self esteem issues. Keep all follow-up visits. Contact a doctor if: You cannot meet your weight-loss goal after you have changed your diet and lifestyle for 6 weeks. You are having trouble breathing. Summary Obesity is having too much body fat. Being obese means that your weight is more than what is healthy for you. Work with your doctor to set a weight-loss goal. Get regular exercise as told by your doctor. This information is not intended to replace advice given to you by your health care provider. Make sure you discuss any questions you have with your health care provider. Document Revised: 04/17/2022 Document Reviewed: 04/17/2022 [employer] Patient Education 2023 [employer]. 05/24/2024 13:22:38 Gastroparesis Gastroparesis Gastroparesis is a condition in which food takes longer than normal to empty from the stomach. Thiscondition is also known as delayed gastric emptying. It is usually a long-term (chronic) condition. There is no cure, but there are treatments and things that you can do at home to help relieve symptoms. Treating the underlying condition that causes gastroparesis can also help relieve symptoms. What are the causes? In many cases, the cause of this condition is not known. Possible causes include: A hormone (endocrine) disorder, such as hypothyroidism or diabetes. A nervous system disease, such as Parkinson's disease or multiple sclerosis. Cancer, infection, or surgery that affects the stomach or vagus nerve. The vagus nerve runs from your chest, through your neck, and to the lower part of your brain. A connective tissue disorder, such as scleroderma. Certain medicines. What increases the risk? You are more likely to develop this condition if: You have certain disorders or diseases. These may include: ?An endocrine disorder. ?An eating disorder. ?Amyloidosis. ?Scleroderma. ?Parkinson's disease. ?Multiple sclerosis. ?Cancer or infection of the stomach or the vagus nerve. You have had surgery on your stomach or vagus nerve. You take certain medicines. You are female. What are the signs or symptoms? Symptoms of this condition include: Feeling full after eating very little or a loss of appetite. Nausea, vomiting, or heartburn. Bloating of your abdomen. Inconsistent blood sugar (glucose) levels on blood tests. Unexplained weight loss. Acid from the stomach coming up into the esophagus (gastroesophageal reflux). Sudden tightening (spasm) of the stomach, which can be painful. Symptoms may come and go. Some people may not notice any symptoms. How is this diagnosed? This condition is diagnosed with tests, such as: Tests that check how long it takes food to move through the stomach and intestines. These tests include: ?Upper gastrointestinal (GI) series. For this test, you drink a liquid that shows up well on X-rays, and then X-rays are taken of your intestines. ?Gastric emptying scintigraphy. For this test, you eat food that contains a small amount of radioactive material, and then scans are taken. ?Wireless capsule GI monitoring system. For this test, you swallow a pill (capsule) that records information about how foods and fluid move through your stomach. Gastric manometry. For this test, a tube is passed down your throat and into your stomach to measure electrical and muscular activity. Endoscopy. For this test, a long, thin tube with a camera and light on the end is passed down your throat and into your stomach to check for problems in your stomach lining. Ultrasound. This test uses sound waves to create images of the inside of your body. This can help rule out gallbladder disease or pancreatitis as a cause of your symptoms. How is this treated? There is no cure for this condition, but treatment and home care may relieve symptoms. Treatment may include: Treating the underlying cause. Managing your symptoms by making changes to your diet and exercise habits. Taking medicines to control nausea and vomiting and to stimulate stomach muscles. Getting food through a feeding tube in the hospital. This may be done in severe cases. Having surgery to insert a device called a gastric electrical stimulator into your body. This device helps improve stomach emptying and control nausea and vomiting. Follow these instructions at home: Take nrqs-hhc-tcbensk and prescription medicines only as told by your health care provider. Follow instructions from your health care provider about eating or drinking restrictions. Your health care provider may recommend that you: ?Eat smaller meals more often. ?Eat low-fat foods. ?Eat low-fiber forms of high-fiber foods. For example, eat cooked vegetables instead of raw vegetables. ?Have only liquid foods instead of solid foods. Liquid foods are easier to digest. Drink enough fluid to keep your urine pale yellow. Exercise as often as told by your health care provider. Keep all follow-up visits. This is important. Contact a health care provider if you: Notice that your symptoms do not improve with treatment. Have new symptoms. Get help right away if you: Have severe pain in your abdomen that does not improve with treatment. Have nausea that is severe or does not go away. Vomit every time you drink fluids. Summary Gastroparesis is a long-term (chronic) condition in which food takes longer than normal to empty from the stomach. Symptoms include nausea, vomiting, heartburn, bloating of your abdomen, and loss of appetite. Eating smaller portions, low-fat foods, and low-fiber forms of high-fiber foods may help you manageyour symptoms. Get help right away if you have severe pain in your abdomen. This information is not intended to replace advice given to you by your health care provider. Make sure you discuss any questions you have with your health care provider. Document Revised: 01/16/2021 Document Reviewed: 01/16/2021 [employer] Patient Education 2023 [employer]. 05/24/2024 13:22:38 DASH Eating Plan DASH Eating Plan DASH stands for Dietary Approaches to Stop Hypertension. The DASH eating plan is a healthy eating plan that has been shown to: Lower high blood pressure (hypertension). Reduce your risk for type 2 diabetes, heart disease, and stroke. Help with weight loss. What are tips for following this plan? Reading food labels Check food labels for the amount of salt (sodium) per serving. Choose foods with less than 5 percent of the Daily Value (DV) of sodium. In general, foods with less than 300 milligrams (mg) of sodium per serving fit into this eating plan. To find whole grains, look for the word whole as the first word in the ingredient list. Shopping Buy products labeled as low-sodium or no salt added. Buy fresh foods. Avoid canned foods and pre-made or frozen meals. Cooking Try not to add salt when you cook. Use salt-free seasonings or herbs instead of table salt or sea salt. Check with your health care provider or pharmacist before using salt substitutes. Do not vincent foods. Cook foods in healthy ways, such as baking, boiling, grilling, roasting, or broiling. Cook using oils that are good for your heart. These include olive, canola, avocado, soybean, and sunflower oil. Meal planning Eat a balanced diet. This should include: ?4 or more servings of fruits and 4 or more servings of vegetables each day. Try to fill half of your plate with fruits and vegetables. ?6 8 servings of whole grains each day. ?6 or less servings of lean meat, poultry, or fish each day. 1 oz is 1 serving. A 3 oz (85 g) serving of meat is about the same size as the palm of your hand. One egg is 1 oz (28 g). ?2 3 servings of low-fat dairy each day. One serving is 1 cup (237 mL). ?1 serving of nuts, seeds, or beans 5 times each week. ?2 3 servings of heart-healthy fats. Healthy fats called omega-3 fatty acids are found in foods such as walnuts, flaxseeds, fortified milks, and eggs. These fats are also found in cold-water fish, such as sardines, salmon, and mackerel. Limit how much you eat of: ?Canned or prepackaged foods. ?Food that is high in trans fat, such as fried foods. ?Food that is high in saturated fat, such as fatty meat. ?Desserts and other sweets, sugary drinks, and other foods with added sugar. ?Full-fat dairy products. Do not salt foods before eating. Do not eat more than 4 egg yolks a week. Try to eat at least 2 vegetarian meals a week. Eat more home-cooked food and less restaurant, buffet, and fast food. Lifestyle When eating at a restaurant, ask if your food can be made with less salt or no salt. If you drink alcohol: ?Limit how much you have to: ?0 1 drink a day if you are female. ?0 2 drinks a day if you are male. ?Know how much alcohol is in your drink. In the [place] one drink is one 12 oz bottle of beer (355 mL), one 5 oz glass of wine (148 mL), or one 1 oz glass of hard liquor (44 mL). General information Avoid eating more than 2,300 mg of salt a day. If you have hypertension, you may need to reduce your sodium intake to 1,500 mg a day. Work with your provider to stay at a healthy body weight or lose weight. Ask what the best weight range is for you. On most days of the week, get at least 30 minutes of exercise that causes your heart to beat faster. This may include walking, swimming, or biking. Work with your provider or dietitian to adjust your eating plan to meet your specific calorie needs. What foods should I eat? Fruits All fresh, dried, or frozen fruit. Canned fruits that are in their natural juice and do not have sugar added to them. Vegetables Fresh or frozen vegetables that are raw, steamed, roasted, or grilled. Low- sodium or reduced-sodiumtomato and vegetable juice. Low-sodium or reduced-sodium tomato sauce and tomato paste. Low-sodium or reduced-sodium canned vegetables. Grains Whole-grain or whole-wheat bread. Whole-grain or whole-wheat pasta. Brown rice. Oatmeal. Quinoa. Bulgur. Whole-grain and low-sodium cereals. Sunshine bread. Low- fat, low-sodium crackers. Whole-wheat flour tortillas. Meats and other proteins Skinless chicken or turkey. Ground chicken or turkey. Pork with fat trimmed off. Fish and seafood. Egg whites. Dried beans, peas, or lentils. Unsalted nuts, nut butters, and seeds. Unsalted canned beans. Lean cuts of beef with fat trimmed off. Low-sodium, lean precooked or cured meat, such as sausages or meat loaves. Dairy Low-fat (1%) or fat-free (skim) milk. Reduced-fat, low-fat, or fat-free cheeses. Nonfat, low-sodiumricotta or cottage cheese. Low-fat or nonfat yogurt. Low-fat, low-sodium cheese. Fats and oils Soft margarine without trans fats. Vegetable oil. Reduced-fat, low-fat, or light mayonnaise and salad dressings (reduced-sodium). Canola, safflower, olive, avocado, soybean, and sunflower oils. Avocado. Seasonings and condiments Herbs. Spices. Seasoning mixes without salt. Other foods Unsalted popcorn and pretzels. Fat-free sweets. The items listed above may not be all the foods and drinks you can have. Talk to a dietitian to learn more. What foods should I avoid? Fruits Canned fruit in a light or heavy syrup. Fried fruit. Fruit in cream or butter sauce. Vegetables Creamed or fried vegetables. Vegetables in a cheese sauce. Regular canned vegetables that are not marked as low-sodium or reduced-sodium. Regular canned tomato sauce and paste that are not marked as low-sodium or reduced-sodium. Regular tomato and vegetable juices that are not marked as low-sodium or reduced-sodium. Pickles. Olives. Grains Baked goods made with fat, such as croissants, muffins, or some breads. Dry pasta or rice meal packs. Meats and other proteins Fatty cuts of meat. Ribs. Fried meat. Bullock. Bologna, salami, and other precooked or cured meats, such as sausages or meat loaves, that are not lean and low in sodium. Fat from the back of a pig (fatback). Bratwurst. Salted nuts and seeds. Canned beans with added salt. Canned or smoked fish. Whole eggs or egg yolks. Chicken or turkey with skin. Dairy Whole or 2% milk, cream, and ouqf-iun-qxqo. Whole or full-fat cream cheese. Whole-fat or sweetened yogurt. Full-fat cheese. Nondairy creamers. Whipped toppings. Processed cheese and cheese spreads. Fats and oils Butter. Stick margarine. Lard. Shortening. Ghee. Bullock fat. Tropical oils, such as coconut, palm kernel, or palm oil. Seasonings and condiments Onion salt, garlic salt, seasoned salt, table salt, and sea salt. Worcestershire sauce. Tartar sauce. Barbecue sauce. Teriyaki sauce. Soy sauce, including reduced-sodium soy sauce. Steak sauce. Canned and packaged gravies. Fish sauce. Oyster sauce. Cocktail sauce. Store-bought horseradish. Ketchup.Mustard. Meat flavorings and tenderizers. Bouillon cubes. Hot sauces. Pre-made or packaged marinades. Pre-made or packaged taco seasonings. Relishes. Regular salad dressings. Other foods Salted popcorn and pretzels. The items listed above may not be all the foods and drinks you should avoid. Talk to a dietitian tara more. Where to find more information National Heart, Lung, and Blood [place] (NHLBI): nhlbi.nih.gov [place] [employer] (AHA): heart.org Academy of Nutrition and Dietetics: eatright.org National Kidney Foundation (NKF): kidney.org This information is not intended to replace advice given to you by your health care provider. Make sure you discuss any questions you have with your health care provider. Document Revised: 09/26/2023 Document Reviewed: 09/26/2023 [employer] Patient Education 2023 [employer] 05/24/2024 13:22:38 Abdominal Bloating Abdominal Bloating When you have abdominal bloating, your abdomen may feel full, tight, or painful. It may also look bigger than normal or swollen (distended). Common causes of abdominal bloating include: Swallowing air. Constipation. Problems digesting food. Eating too much. Irritable bowel syndrome. This is a condition that affects the large intestine. Lactose intolerance. This is an inability to digest lactose, a natural sugar in dairy products. Celiac disease. This is a condition that affects the ability to digest gluten, a protein found in some grains. Gastroparesis. This is a condition that slows down the movement of food in the stomach and small intestine. It is more common in people with diabetes mellitus. Gastroesophageal reflux disease (GERD). This is a condition that makes stomach acid flow back into the esophagus. Urinary retention. This means that the body is holding onto urine, and the bladder cannot be emptied all the way. Follow these instructions at home: Eating and drinking Avoid eating too much. Try not to swallow air while talking or eating. Avoid eating while lying down. Avoid these foods and drinks: ?Foods that cause gas, such as broccoli, cabbage, cauliflower, and baked beans. ?Carbonated drinks. ?Hard candy. ?Chewing gum. Medicines Take ulzx-lmm-iyhrctb and prescription medicines only as told by your health care provider. Take probiotic medicines. These medicines contain live bacteria or yeasts that can help digestion. Take coated peppermint oil capsules. General instructions Try to exercise regularly. Exercise may help to relieve bloating that is caused by gas and relieve constipation. Keep all follow-up visits. This is important. Contact a health care provider if: You have nausea and vomiting. You have diarrhea. You have abdominal pain. You have unusual weight loss or weight gain. You have severe pain, and medicines do not help. Get help right away if: You have chest pain. You have trouble breathing. You have shortness of breath. You have trouble urinating. You have darker urine than normal. You have blood in your stools or have dark, tarry stools. These symptoms may represent a serious problem that is an emergency. Do not wait to see if the symptoms will go away. Get medical help right away. Call your local emergency services (911 in the [place] Do not drive yourself to the hospital. Summary Abdominal bloating means that the abdomen is swollen. Common causes of abdominal bloating are swallowing air, constipation, and problems digesting food. Avoid eating too much and avoid swallowing air. Avoid foods that cause gas, carbonated drinks, hard candy, and chewing gum. This information is not intended to replace advice given to you by your health care provider. Make sure you discuss any questions you have with your health care provider. Document Revised: 04/11/2021 Document Reviewed: 04/11/2021 [employer] Patient Education 2023 [employer]. 05/24/2024 13:22:38 Acute Pain, Adult Acute Pain, Adult Acute pain is a type of sudden pain that may last for just a few days or for as long as three months. It is often related to an illness, injury, or a medical procedure. Acute pain may be mild, moderate, or severe. Pain can make it hard for you to do your daily activities. It can cause anxiety and lead to other problems if it is not treated. Treatment may not take all the pain away, but it may lessen the pain so you can move around and tolerate it. Pain is best treated with medicines and other therapies such as distraction, meditation, oils from plants (aromatherapy), heat, and ice. Treatment depends on the cause of the pain and how severe it is. Acute pain usually goes away once your injury has healed or you are no longer ill. Follow these instructions at home: Medicines Take cykw-uda-fsjqezc and prescription medicines only as told by your health care provider. Take the lowest dose of medicine for the shortest amount of time needed to relieve the pain. If you are taking prescription pain medicine: ?Do not stop taking the medicine suddenly. Talk to your health care provider about how and when to stop taking prescription medicine. ?Do not take more pills than told by your health care provider even if your pain is severe. ?Do not take other cxci-dvo-iebsfne pain medicines in addition to prescription pain medicine unlesstold by your health care provider. ?Keep your medicine in a safe place, away from children or anyone who could use it in a way that itwas not prescribed. ?Ask your health care provider if the medicine prescribed to you requires you to avoid driving or using machinery. Managing pain, stiffness, and swelling If told, put ice on the affected area. ?Put ice in a plastic bag. ?Place a towel between your skin and the bag. ?Leave the ice on for 20 minutes, 2 3 times a day. If told, apply heat to the affected area as often as told by your health care provider. Use the heat source that your health care provider recommends, such as a moist heat pack or a heating pad. ?Place a towel between your skin and the heat source. ?Leave the heat on for 20 30 minutes. If your skin turns bright red, remove the ice or heat right away to prevent skin damage. The risk of damage is higher if you cannot feel pain, heat, or cold. Managing constipation Your medicines may cause constipation. To prevent or treat constipation, you may need to: Drink enough fluid to keep your urine pale yellow. Take ekhx-udq-aixnvoa or prescription medicines. Eat foods that are high in fiber, such as beans, whole grains, and fresh fruits and vegetables. Limit foods that are high in fat and processed sugars, such as fried or sweet foods. Activity Rest as told by your health care provider. Return to your normal activities as told by your health care provider. Ask your health care provider what activities are safe for you. Ask your health care provider if doing physical therapy exercises to improve movement and strength can help you manage your pain. General instructions Check your pain level as told by your health care provider. Ask your health care provider if distraction, relaxation, or aromatherapy can help you manage your pain. Keep all follow-up visits. Your health care provider will monitor your pain level. Contact a health care provider if: Your pain is not controlled by medicine. Your pain does not improve or gets worse. You have side effects from pain medicines. Get help right away if: You have severe pain. You have trouble breathing. You faint, or another person sees you faint. You have chest pain or pressure that lasts for more than a few minutes, or if you have other symptoms along with chest pain, including: ?Pain or discomfort in one or both arms, your back, neck, jaw, or stomach. ?Shortness of breath. ?A cold sweat. ?Nausea. ?Feeling light-headed. These symptoms may be an emergency. Get help right away. Call 911. Do not wait to see if the symptoms will go away. Do not drive yourself to the hospital. This information is not intended to replace advice given to you by your health care provider. Make sure you discuss any questions you have with your health care provider. Document Revised: 04/03/2023 Document Reviewed: 04/03/2023 [employer] Patient Education 2023 [employer]. Follow Up Care 05/22/2024 21:24:08 With:Aly Beverly Address: [address], [address] [phone] Business (1) When:7 to 10 days Comments:Call for followup appointment With:YOSSI GOLDEN Address: [address] [place] [address] Business (1) When:3 to 5 days Comments:Call for followup appointment [facility] [place] 08-31-2024 Evaluation + Plan noteExtracted from: Title:Inpatient Consultation -Floor Code* Author:Aly Beverly MD Date:05/23/24 Impression and Plan This is a 28-year-old lady with past medical history of IDDM, morbid obesity, reported gastroparesis, who presented to the ED with abdominal pain, nausea and vomiting. She reports that the symptoms been going on for about a month, reports soft stools Per reports she presented multiple times to local ERs without admissions Has a gastric emptying study done 05/19/24 that showed severe delayed emptying She had EGD and colonoscopy with Dr. Gardner in [place] December 26, 2022: Reported distal esophagitis and small hiatal hernia, diagnostic colonoscopy was also within normal limits per report Labs upon admission showed unremarkable CBC, CMP showed alk phos 100, lipase 111, otherwise unremarkable CMP A1c last month was 9.8 No abdominal imaging on admission #Nausea and vomiting likely secondary to severe gastroparesis, uncontrolled IDDM (a1c 9.8 recently) # Given the minimal elevation in lipase, cannot rule out also acute gastroenteritis No signs of GI bleeding, no urgent need for endoscopy Recommendations -Supportive care with Zofran before meals -Reglan before meals 10 mg 4 times daily AC as needed -Minimize/avoid of narcotics and anticholinergics as much as possible -If any diarrhea please obtain stool studies -Ordered CT abdomen pelvis with contrast -GI will follow Extracted from: Title:Admission H & P Author:Naima Sewell MD Date:05/23/24 1. Gastroparesis (K31.84: Ga stroparesis) Due to uncontrolled diabetes Gastric emptying study on 05/19 showed severe delayed emptying Ordered Reglan 10mg IV QIDACHS. Zofran prn nausea Ordered IV Morphine prn pain until convinced patient able to tolerate adequate oral Clear liquids Consult GI 2. Type 2 diabetes mellitus (E11.9: Type 2 diabetes mellitus without complications) Uncontrolled, A1C 9.8 Ordered Glargine with SSI prn. 3. Essential hypertension (I10: Essential (primary) hypertension) Normotensive. 4. LINA (generalized anxiety disorder) (F41.1: Generalized anxiety disorder) Home meds include Hydroxyzine prn, Zoloft 5. Morbid obesity (E66.01: Morbid (severe) obesity due to excess calories) BMI >40 +hepatic steatosis on imaging Extracted from: Title:ED Note Author:Cameron Conklin DO Date: 1. Gastroparesis (K31.84: Ga stroparesis) 2. Type 2 diabetes mellitus (E11.9: Type 2 diabetes mellitus without complications) 3. Essential hypertension (I10: Essential (primary) hypertension) 4. LINA (generalized anxiety disorder) (F41.1: Generalized anxiety disorder) 5. Morbid obesity (E66.01: Morbid (severe) obesity due to excess calories) Orders: morphine, 4 mg = 1 mL, Injection, IV Push, Once, Stop date 05/23/24 1:57:00 EDT, STAT, Start date 05/23/24 1:57:00 EDT, 05/23/24 1:57:00 EDT morphine, 4 mg = 1 mL, Injection, IV Push, Once, Stop date 05/23/24 0:39:00 EDT, STAT, Start date 05/23/24 0:39:00 EDT, 05/23/24 0:39:00 EDT promethazine 12.5 mg + Sodium Chloride 0.9% intravenous solution 50 mL, Injection, IV Piggyback, Once, Stop date 05/23/24 0:38:00 EDT, STAT, Start date 05/23/24 0:38:00 EDT, 151.5 mL/hr, Infuse over 20 minute(s) Basic Metabolic Panel CBC w/ Auto Diff ED Physician consult Hospitalist for continued care eGFR Hepatic Function Panel Lipase Level UA with Cult Rflx Future Scheduled Tests Radiology* NM Gastric Emptying Study 05/25/24 [facility] [place] 08-31-2024 NoteProgress Note-Physician Appreciate GI consult. Patient admitted after midnight. Patient having pain and discomfort in her flanks and diffuse abdominal area; she says the pain in her flanks are worse when she takes deep breath. Still having some nausea requesting Phenergan; she is only on Zofran. Tolerating p.o. with clear liquids and may advance later. Constitutional: Awake and alert; oriented x 3 with no apparent distress or respiratory distress Head/neck: Neck supple with no palpable lymphadenopathy, bruits or masses; trachea midline Chest/lungs: Clear to auscultation bilaterally no wheezes or rhonchi noted bilaterally Cardiovascular: Regular rate and rhythm; normal S1-S2 with no murmur; no pitting edema and 2+ pulses bilaterally Gastrointestinal: Soft, mild tenderness with minimal palpation, nondistended, positive bowel sounds; no guarding or rebound noted; obese Neurological: Nonfocal; cranial nerves II through XII appear intact Psychological: Pleasant affect A/P: Gastroparesis Continue antiemetics; will give one-time dose of Phenergan this morning Pain control as needed Advance diet as tolerated GI recommends CT abdomen pelvis with IV contrast to rule out other etiologies Type 2 diabetes A1c 9.8; uncontrolled Continue basal Lantus and sliding scale insulin for coverage Hypertension BP stable No medications at this time Generalized anxiety disorder She is on hydroxyzine as needed continue sertraline daily Obesity BMI greater than 40 Hepatic steatosis on imaging Therapeutic lifestyle modification changes in the outpatient settingRiverview Health InstituteComment on above:Result Comment: Electronically Signed By: Luis Villalobos DO.jarred\Date and Time Signed: 05/23/24 13:49 [id number] Note Consultation Note Patient: GAEL RUYB Age: 28 years Sex: Female : 1995 Associated Diagnoses: None Author: Beto GREWAL, Aly Whitten Basic Information N/V History of Present Illness This is a 28-year-old lady with past medical history of IDDM, morbid obesity, reported gastroparesis, who presented to the ED with abdominal pain, nausea and vomiting. She reports that the symptoms been going on for about a month, reports soft stools Per reports she presented multiple times to local ERs without admissions Has a gastric emptying study done 05/19/24 that showed severe delayed emptying She had EGD and colonoscopy with Dr. Henao in [place] December 26, 2022: Reported distal esophagitis and small hiatal hernia, diagnostic colonoscopy was also within normal limits per report Labs upon admission showed unremarkable CBC, CMP showed alk phos 100, lipase 111, otherwise unremarkable CMP A1c last month was 9.8 No abdominal imaging on admission Health Status Current medications: (Selected) Inpatient Medications Ordered Dextrose 50% Soln-IV: 50 mL, Soln-IV, IV Push, Once PRN Blood glucose, Routine, Start date :23:00 EDT Insulin Lispro Sliding Scale: 0-10 Unit(s), Injection-Insulin, SubCutaneous, QIDACHS, Routine, Start date 05/23/24 7:30:00 EDT NS 0.45% 1000 mL Soln-IV 1,000 mL: 1,000 mL, IV, 75 mL/hr, Routine, Start date 05/23/24 3:20:00 EDT, 13.3 hour(s), Total volume (mL): 1,000, 112.2 kg, 2.32, m2 Zofran 4 mg/2 mL Injection: 4 mg = 2 mL, Injection, IV Push, q6hr PRN Nausea, Routine, Start date 05/23/24 3:20:00 EDT, 05/23/24 3:20:00 EDT acetaminophen 325 mg Tab: 650 mg = 2 tab(s), Tab, Oral, q6hr PRN Pain, Routine, Start date :20:00 EDT, 05/23/24 3:20:00 EDT heparin 5000 units/mL Inj: 5,000 unit(s) = 1 mL, Injection, SubCutaneous, q8hrFT for 30 day(s), Stop date 06/22/24 7:59:00 EDT, Routine, Start date 05/23/24 8:00:00 EDT, 05/23/24 4:37:00 EDT insulin glargine 100 units/mL SubQ Deniz 10 mL: 20 unit(s) = 0.2 mL, Injection- Insulin, SubCutaneous,Daily, Routine, Start date 05/23/24 9:00:00 EDT metoclopramide 5 mg/mL Inj: 10 mg = 2 mL, Injection, IV Push, QIDACHS, Routine, Start date 247:30:00 EDT, 05/23/24 3:20:00 EDT morphine 2 mg/mL Inj: 4 mg = 2 mL, Injection, IV Push, q4hr PRN Pain for 5 day(s), Stop date 05/28/24 3:19:00 EDT, Routine, Start date 05/23/24 3:20:00 EDT, 05/23/24 3:20:00 EDT Documented Medications Documented Albuterol (Eqv-ProAir HFA) 90 mcg/inh inhalation aerosol: Refill(s) 0 Bentyl 10 mg Cap: Refills(s) 0 Carafate 1 gram Tab: 1 gm = 1 tab(s), Oral, QIDACHS, prescribed 12/26/22, Refills(s) 0 Lantus 100 units/mL Injection-Insulin: Refills(s) 0 Levsin 0.125 mg SL Tab: Refills(s) 0 Phenergan 12.5 mg Supp: 12.5 mg = 1 supp, Rectal, q4hr, PRN Nausea/Vomiting, # 6 EA, Refills(s) 0 Reglan 10 mg Tab: 10 mg = 1 tab(s), Oral, QID, # 120 tab(s), Refills(s) 0 Trulicity Pen 1.5 mg/0.5 mL subcutaneous solution: 1.5 mg, SubCutaneous, qWeek, Refills(s) 0 glipiZIDE 10 mg Tab: 10 mg = 1 tab(s), Oral, BID, Refills(s) 0 hydrOXYzine hydrochloride 25 mg Tab: 25 mg = 1 tab(s), Oral, q6hr, PRN as needed for anxiety, Refills(s) 0 omeprazole 40 mg Cap-DR: 40 mg = 1 cap(s), Oral, BID, Refills(s) 0 ondansetron 4 mg Dis Tab: 4 mg = 1 tab(s), Oral, q6hr, PRN Nausea, Refills(s) 0 sertraline 25 mg Tab: 25 mg = 1 tab(s), Oral, Daily, Refills(s) 0 tiZANidine 4 mg Tab: 4 mg = 1 tab(s), Oral, TID, Refills(s) 0 Physical Examination Vital Signs (last 24 hrs) Last Charted Temp Oral 36.9 DegC (MAY 23 02:30) Heart Rate Monitored 80 bpm (MAY 23:30) SBP H 143 mmHg (MAY 23:30) DBP H 92 mmHg (MAY 23 05:30) Weight 110.9 kg (MAY 23 05:18) BMI 37.17 (MAY 23 02:30) Impression and Plan This is a 28-year-old lady with past medical history of IDDM, morbid obesity, reported gastroparesis, who presented to the ED with abdominal pain, nausea and vomiting. She reports that the symptoms been going on for about a month, reports soft stools Per reports she presented multiple times to local ERs without admissions Has a gastric emptying study done 05/19/24 that showed severe delayed emptying She had EGD and colonoscopy with Dr. Gardner in [place] December 26, 2022: Reported distal esophagitis and small hiatal hernia, diagnostic colonoscopy was also within normal limits per report Labs upon admission showed unremarkable CBC, CMP showed alk phos 100, lipase 111, otherwise unremarkable CMP A1c last month was 9.8 No abdominal imaging on admission #Nausea and vomiting likely secondary to severe gastroparesis, uncontrolled IDDM (a1c 9.8 recently) # Given the minimal elevation in lipase, cannot rule out also acute gastroenteritis No signs of GI bleeding, no urgent need for endoscopy Recommendations -Supportive care with Zofran before meals -Reglan before meals 10 mg 4 times daily AC as needed -Minimize/avoid of narcotics and anticholinergic (more content not included)... [facility] InstituteComment on above:Result Comment: Electronically Signed By: Beto GREWAL, Aly Whitten\.jarred\Date and Time Signed: 05/23/24 11:53 [id number] TaviaGetAgapito Understands Education Yes GetWell Education Video Diabetes: 3 Steps to Problem-Solving GetWell Learning Participants [facility]08-31-2024 NoteGetAgapito Understands Education Yes GetWell Education Video Avoiding Infections in the Hospital GetWell Learning Participants [facility]08-31-2024 NoteHistory and Physical Basic Information Admit Date/Time:05/23/2024 01:24 Chief Complaint upper abd. pain and vomiting started today. hx gastroparesis, unable to keep meds down. History of Present Illness 28yo female with a PMH of diabetes, gastroparesis, anxiety and morbid obesity who presented to the ED with continued abdominal pain, n/v. Symptoms have been ongoing for the past month. Stools soft. She has been seen multiple times at [facility] and [facility]. Has not been admitted. usually medicated and then discharged home. Has a gastric emptying study done 05/19/24 that showed severe delayed emptying. CT A/P 04/20/24 showed known hepatosplenomegaly and hepatic steatosis. Last A1C a monthago was 9.8. She has been taking Reglan, Bentyl and Phenergan suppositories at home, but the past few days has been having issues keeping her meds down. Has been trying to see GI as an outpatient, but has been unable to get timely appt. Workup in the ED: Labs unremarkable in terms of no signs of dehydration. She was medicated with IV Morphine x2 and Phenergan. No repeat imaging felt to be needed. Patient being admitted for GI consultation and symptoms management. Review of Systems Constitutional: no fever, no chills, no sweats, no weakness Skin: no jaundice, no rash, no lesions, no petechiae ENMT: no ear pain, no sore throat, no congestion, no hoarseness Respiratory: no shortness of breath, no cough, no orthopnea, no wheezing Cardiovascular: no chest pain, no palpitations, no edema Gastrointestinal: as above Genitourinary: no dysuria, no hematuria Musculoskeletal: no trauma, no joint or muscle pain Neurologic: no headache, no dizziness Psychiatric: no depression, + anxiety Heme/Lymph: no bleeding tendency, no bruising tendency Additional ROS info: Except as noted in the above Review of Systems and in the History of Present Illness all other systems have been reviewed and are negative or noncontributory. Scoring Thomson Fall Risk Score: 35 (05/23/24) Physical Exam Vitals & Measurements T: 36.9 ?C(Oral) TMIN: 36.8 ?C(Oral) TMAX: 36.9 ?C(Axillary) HR: 81(Peripheral) RR: 18 BP: 134/85 SpO2: 96% HT: 172.72 cm WT: 110.9 kg General: non-toxic appearing Skin: warm, dry, no rash Head: AT/NC Neck: Trachea midline, supple Eye: normal conjunctiva, sclera clear Cardiovascular: regular rate and rhythm, S1S2, normal peripheral perfusion Respiratory: Lungs CTA anteriorly, respirations non labored, breath sounds equal, no w/r/r Chest wall: no deformity Gastrointestinal: soft, ND, diffusely TTP, morbidly obese Extremities: no deformity, no edema Neurological: alert and oriented, no focal deficits, normal speech Psychiatric: cooperative, affect appropriate for age, good eye contact Lab Results WBC: 11.7 E9/L High (05/22/24 22:24:00) RBC: 4.8 E12/L (05/22/24:24:00) HGB: 14.7 gm/dL (05/22/24:24:00) Hct: 42.9 % (05/22/24:24:00) MCV: 88.6 fL (05/22/24:24:00) MCH: 30.3 pg (05/22/24:24:00) MCHC: 34.2 gm/dL (05/22/24:24:00) RDW: 13.7 % (05/22/24 22:24:00) Platelet: 308 E9/L (05/22/24:24:00) MPV: 8.6 fL (05/22/24 22:24:00) Neutro Auto: 52.1 % (05/22/24 22:24:00) Lymph Auto: 39.5 % (05/22/24 22:24:00) [place] Auto: 5.3 % (05/22/24 22:24:00) Eos Auto: 2.3 % (05/22/24:24:00) Basophil Auto: 0.8 % (05/22/24 22:24:00) Neutro Absolute: 6.1 E9/L (05/22/24 22:24:00) Lymph Absolute: 4.6 E9/L High (05/22/24 22:24:00) [place] Absolute: 0.6 E9/L (05/22/24 22:24:00) Eos Absolute: 0.3 E9/L (05/22/24 22:24:00) Basophil Absolute: 0.1 E9/L (05/22/24 22:24:00) Glucose Lvl: 136 mg/dL (05/22/24 22:24:00) BUN: 11 mg/dL (05/22/24:24:00) Creatinine: 0.7 mg/dL (05/22/24 22:24:00) eGFR: 119 mL/min/1.73 m2 (05/22/24 22:24:00) BUN/Creat Ratio: 16 (05/22/24:24:00) Sodium Lvl: 139 mmol/L (05/22/24 22:24:00) Potassium Lvl: 4.1 mmol/L (05/22/24:24:00) Chloride: 108 mmol/L (05/22/24:24:00) CO2: 22 mmol/L (05/22/24:24:00) AGAP: 13 mEq/L (05/22/24:24:00) Calcium Lvl: 9.7 mg/dL (05/22/24 22:24:00) Alk Phos: 100 Int._Unit/L High (05/22/24 22:24:00) ALT: 46 Int._Unit/L (05/22/24 22:24:00) AST: 34 Int._Unit/L (05/22/24:24:00) Total Protein: 8 gm/dL High (05/22/24 22:24:00) Albumin Lvl: 4.5 gm/dL (05/22/24 22:24:00) Globulin: 3.5 gm/dL (05/22/24:24:00) A/G Ratio: 1.3 (05/22/24 22:24:00) Bili Total: 0.5 mg/dL (05/22/24 22:24:00) Bili Direct: 0.1 mg/dL (05/22/24 22:24:00) Bili Indirect: 0.4 mg/dL (05/22/24 22:24:00) Lipase Lvl: 111 unit/L High (05/22/24 22:24:00) UA Spec Desc: Clean Catch (05/23/24 03:24:00) Assessment/Plan 1. Gastroparesis (K31.84: Gastroparesis) Due to uncontrolled diabetes Gastric emptying study on 05/19 showed severe delayed emptying Ordered Reglan 10mg IV QIDACHS. Zofran prn nausea Ordered IV Morphine prn pain until convinced patient able to tolerate adequate oral Clear liquids Consult GI 2. Type 2 diabetes mellitus (E11.9: Type 2 diabetes mellitus (more content not included)...[facility] InstituteComment on above:Result Comment: Electronically Signed By: Melodie GREWAL, Naima\.jarred\Date and Time Signed: 05/23/24 03:43 [id number] Hospital Discharge instructions* Discharge Instructions* Charly Seay DO - 01/30/2024 7:45 PM EDT You were evaluated in the emergency department for chest pain. Your lab work did not reveal any acute abnormalities except for a slightly elevated glucose. CT of your chest did not reveal any acute abnormalities. Please follow-up with your primary care physician. Please return to the emergency department for any worsening symptoms, questions or concerns. * Attachments The following attachments cannot be sent through Care Everywhere. * Chest Pain (Somali) * Chest Pain: Musculoskeletal (Somali) [facility] Discharge instructions* Discharge Instructions* Gloria Bosch MD - 01/04/2024 9:39 PM EDT Avoid drinking alcohol or drinks that have caffeine it. Drink plenty of water or fluids like Gatorade. Avoid eating spicy foods. You should eat bland foods like bananas, rice, apple sauce and toast /crackers. Using Pepto-Bismol may be beneficial, but long-term [...] to follow up with your physician, or otherany other care or concern. * Attachments The following attachments cannot be sent through Care Everywhere. * Viral Infections ([place]omali) [facility] Hospital Discharge instructions* Discharge Instructions* Samy Walker MD - 11/24/2023 12:02 AM EST The cause of your pain was not identified. Your evaluation, including imaging, was reassuring. I suspect scar tissue, possibly related to prior gynecologic surgeries, may be the cause. Please follow-up with both your INSURANCE SOLICITOR and your city weighmaster. Return to the ED for worsening pain, continued vomiting or any other concerns. Use caution while taking Amidon (hydrocodone). It may cause drowsiness. Do not drive or perform dangerous activity while taking this medication and do not take with alcohol or other sedatives. * Attachments The following attachments cannot be sent through Care Everywhere. * Abdominal Pain ([place]omali) [facility] Hospital Discharge instructions* Discharge Instructions* Samy Walker MD - 10/14/2023 9:21 AM EST Return to the ED for difficulty breathing, development of persistent vomiting or any other concerns. Begin taking the flu treatment medication as prescribed. Use ibuprofen and/or acetaminophen, as directed on the [id number]-[id number] container, as needed for pain or fever control. * Attachments The following attachments cannot be sent through Care Everywhere. * Influenza ([place]i) documented in this [facility]12[facility] History of Present illness Narrative* Bridgett Zambrano PTA - 09/04/2023 8:45 AM EST [facility] Inpatient/Observation/Outpatient Rehabilitation Date: 09/04/2023 Patient Name: Gael Ruby [] Inpatient Acute/Observation [x] Outpatient : 1995 10/04/23 Plan of Care/Recert ends [x] Pt cancelled due to: [] No Reason Given [x] Sick/ill [] Other: Therapist/Information Systems Security Developer will attempt to see this patient, at our earliest opportunity. Bridgett Zambrano, REGIONAL DIRECTOR OF FINANCE Date: 09/04/2023 documented in this [facility] Hospital Discharge instructions* Discharge Instructions* Nazia Ragsdale MD - 03/23/2023 7:16 PM EDT Make sure to drink plenty of water. Use Phenergan as needed for nausea or vomiting. Follow-up with primary care provider for reevaluation. Please return immediately should you develop any worsening symptoms or any acute concerns. * Attachments The following attachments cannot be sent through Care Everywhere. * Fainting (Somali) documented in this [facility] Hospital Discharge instructions* Discharge Instructions* Samy Walker MD - 02/18/2023 10:12 PM EDT Return to the emergency department for development of vomiting, fever, worsened abdominal pain, blood sugar persistently running greater than 350 or any other concerns. I recommend you discontinue use of your prednisone. Your blood pressure is elevated today. This should be discussed with your PCP at your next visit. * Attachments The following attachments cannot be sent through Care Everywhere. * Diarrhea (Somali) * Hyperglycemia: General Info (Somali) [facility] Work Phone: 1(215) 813-319504-05-2023 NoteOPERATIVE NOTE OPERATION DATE: 12/26/2022 PREOPERATIVE DIAGNOSIS: Dysphagia, frequent loose stools, abdominal pain. POSTOPERATIVE DIAGNOSIS: Small sliding type hiatal hernia, distal esophagitis and bile reflux, normal colon. PROCEDURE: EGD and colonoscopy to cecum. SURGEON: Yajaira Gardner M.D. ANESTHESIA: Monitored anesthesia care. ESTIMATED [...] recovery room in good condition. CC: Yossi Golden M.D.[facility]04-03[facility]2023 Hospital Discharge instructions* Discharge Instructions* Anahi Phelps, DO - 12/24/2022 5:01 PM EDT Follow-up with your doctor next week if your symptoms continue. Otherwise, use your albuterol inhaler as needed given your underlying history of asthma. * Attachments The following attachments cannot be sent through Care Everywhere. * Chest Pain ([place]omali) documented in [facility] Work Phone: 1(339) 284-776002-20-2023 History of Present illness Narrative* Aliyah Rangel RN - 11/12/2022 1:32 PM EST Pt verbalized readiness to go home. Discharge [...] 14. Accompanied by a responsible adult. Yes * Magali Elmore APRN - COMMERCIAL REAL ESTATE AGENT - 10/29/2022 3:20 PM EST Chart reviewed and discussed with RJ. OK to proceed with anesthesia. No pre-op EKG needed. * Gisel Santamaria RN - 10/29/2022 2:42 PM EST Patient instructed on the pre-operative, intra-operative, and [...] Pre-op EKG not needed. [facility] Here Phone: [phone]) 764-677102-20-2023 Hospital Discharge instructions* Discharge Instructions* Aliyah Rangel RN - 11/12/2022 11:58 AM [...] surgeon for further instructions. A small amount ofbright red blood is to be expected. 8. Wash hands before and after incision care. It is important to practice good personal hygiene during the post op period. 9. You may remove your dressing the morning following surgery; leave the steri- strips in place, they will fall off on [...] in hot tubs/saunas or swimming in pools/ponds for6 weeks or until cleared by your surgeon. 16. Call your surgeon for any questions regarding your surgery. 17. Call for an appointment to see GOPAL Swanson in [address] Figueredo -- [place] office [phone] [place] office [phone] documented in this encounterB[facility] Phone: [phone] 313-795802-09-2023 Hospital Discharge instructions* Discharge Instructions* Ricardo Garcia PA-C - 11/01/2022 4:48 PM EST Follow-up with INSURANCE SOLICITOR as scheduled. Take Zofran for nausea. Take Amidon for pain as directed. No driving or alcohol or Tylenol with Amidon. Promptly return to emergency department for new, changing, worsening of symptoms or other concerns. * Attachments The following attachments cannot be sent through Care Everywhere. * Chronic Pelvic Pain: Female (Somali) documented in this [facility] Here Phone: [phone] 265-158701-06-2023 Hospital Discharge instructions* Discharge Instructions* Oliver Arenas MD - 09/28/2022 1:11 AM EST Please follow-up with your INSURANCE SOLICITOR and your primary care physician. Return to the ER if you have anymore pain, fever, chills, sweats, nausea vomiting is hard to treat. Take the medication as prescribed. * Attachments The following attachments cannot be sent through Care Everywhere. * Endometriosis (Somali) * Abdominal Pain: Frequent (Somali) [facility] Appe[facility] Here Phone: [phone]) 572-563210-16-2022 Hospital Discharge instructions* Discharge Instructions* Ricardo Garcia PA-C - 07/08/2022 7:32 PM EDT Follow-up with primary care doctor 7 to 10 days for reevaluation. Start steroids and antibiotics tomorrow as you have already been given a dose here in the emergency department. Promptly return to emergency department for new, changing, worsening of symptoms or other concerns. documented in [facility] Here Phone: [phone]) 762-326804-14-2022 Hospital Discharge instructions* Instructions* Renard Watkins MD - 01/04/2022 Please continue use ice ibuprofen Tylenol as needed. * Attachments The following attachments cannot be sent through Care Everywhere. * Musculoskeletal Pain (Somali) documented in this [facility] Phone: 1([phone]) 966-883106-28-2021 History of Present illness Narrative* Aliyah Rangel RN - 03/20/2021 3:05 PM EDT Pt verbalized readiness to go home. Discharge [...] 14. Accompanied by a responsible adult. Yes * Gisel Santamaria RN - 03/06/2021 12:08 PM EDT Patient instructed on the pre-operative, intra-operative, and post-operative process. Patient instructed on NPO status. Medication instructions and Pre operative instruction sheet reviewed over the phone. documented [facility] this [facility] Phone: 1([phone]) 546-436306-28-2021 Hospital Discharge instructions* Instructions* Aliyah Rangel RN - 03/20/2021 SAME DAY [...] call if excessive. Call the office at [phone] ([place]) [phone] ([place]) for an appointment in 2 weeks. [facility] Work Phone: evaluation + Plan note Future Appointments Appointment Date:12/04/2022 01:20:00 PM Scheduled Provider:Yajaira GARDNER MD Location:[facility] Appointment Type:[address] General Surgery [place] Evaluation + Plan note Future Appointments Appointment Date:06/18/2024 10:30:00 AM Scheduled Provider: Location:[facility] Appointment Type:Surgery FT Future Scheduled Tests Radiology* NM Gastric Emptying Study 05/25/[address] [facility] Evaluation + Plan note Future Appointments Appointment Date:08/10/2024 10:30:00 AM Scheduled Provider:Aly Beverly MD Location[facility] Appointment Type:BAD Follow Up Future Scheduled Tests Radiology* NM Gastric Emptying Study 05/25/[address] [facility] Evaluation + Plan note Future Appointments Appointment Date:09/02/2024 02:15:00 PM Scheduled Provider: Location:[facility] Appointment Type:Surgery FT Appointment Date:09/10/2024 12:00:00 PM Scheduled Provider:Aly eBverly MD Location:[facility] App[facility] Type:[facility] Follow Up Future Scheduled Tests Radiology* NM Gastric Emptying Study 05/25/[address] [facility] Evaluation note* Diagnosis Post-op pain- Primary Other acute postoperative pain Menorrhagia with regular cycle Excessive or frequent menstruation documented in this encounter [employer] Phone: evaluation note* Diagnosis Preop testing Preoperative examination, unspecified documented in this encounter [employer] Phone: evalegvorq note* Diagnosis Abdominal pain, epigastric documented in this encounter [employer] Phone: evaluation note* Diagnosis Acute bronchitis, unspecified organism- Primary documented in this encounter [employer] Phone: evaluation note* Diagnosis Cough- Primary Acute upper respiratory infection Acute upper respiratory infections of unspecified site Encounter for laboratory testing for COVID-19 virus documented in this encounter [employer] Phone: evalecivnx note* Diagnosis Hyperglycemia- Primary Other abnormal glucose documented in this encounter [employer] Phone: evalrforwi note* Diagnosis Acute upper respiratory infection- Primary Acute upper respiratory infections of unspecified site Positive test examination or test, positive result documented in this encounter [employer] Phone: evaluation note* Diagnosis Musculoskeletal pain- Primary Mylagia and myositis, unspecified documented in this encounter [employer] Phone: evaluation note* Diagnosis Generalized abdominal pain- Primary Abdominal pain, generalized Diarrhea, unspecified type Nausea Nausea alone documented in this encounter [facility] Phone: evaluation note* Diagnosis Bronchitis- Primary Bronchitis, not specified as acute or chronic documented in this encounter [employer] Phone: evaluation note* Diagnosis Lower abdominal pain- Primary Abdominal pain, other specified site Endometriosis Endometriosis, site unspecified History of PCOS Personal history of other genital system and obstetric disorders Morbid obesity due to excess calories (HCC) Dysmenorrhea documented in this encounter [facility] [employer] Phone: evaluation note* Diagnosis Endometriosis- Primary Endometriosis, site unspecified Dysmenorrhea documented in this encounter [facility] [facility] [employer] Phone: evaluation note* Diagnosis Chronic pelvic pain in female- Primary Unspecified symptom associated with female genital organs Dysmenorrhea documented in this encounter [facility] [facility] [employer] Phone: evaluation note* Diagnosis Post-op pain- Primary Other acute postoperative pain Dysmenorrhea Post-op pain Other acute postoperative pain Complication of surgical procedure Unspecified complication of procedure, not elsewhere classified Bladder adhesions Other specified disorders of bladder Uterine adhesions Intrauterine synechiae Adhesion of omentum Peritoneal adhesions (postoperative) (postinfection) documented in this encounter [employer] [facility] [employer] Phone: evaluation note* Diagnosis Chest pain, unspecified type- Primary documented in this encounter [facility] [facility] [employer] Phone: evaluation note* Diagnosis Hyperglycemia- Primary Other abnormal glucose Diarrhea, unspecified type documented in this encounter [facility] [facility] [employer] Phone: evalkaxevf note* Diagnosis Syncope, unspecified syncope type- Primary documented in this encounter [employer] note* Diagnosis Lower abdominal pain- Primary Abdominal pain, other specified site documented in this encounter [employer] note* Diagnosis Diarrhea, unspecified type- Primary Viral illness Unspecified viral infection, in conditions classified elsewhere and of unspecified site documented in this encounter [facility] note* Diagnosis Chest pain, unspecified type- Primary documented in this encounter [employer] note* Diagnosis Chronic abdominal pain- Primary Abdominal pain, unspecified site Diarrhea, unspecified type [facility]* Diagnosis Diabetic gastroparesis (HCC) Type II or unspecified type diabetes mellitus with neurological manifestations, not stated as uncontrolled documented in this encounter [facility] note* Diagnosis Epigastric pain- Primary Abdominal pain, epigastric documented in this encounter [facility] note* Diagnosis Generalized anxiety disorder (CMS/HCC)- Primary Generalized anxiety disorder DDD (degenerative disc disease), lumbar Degeneration of lumbar or lumbosacral intervertebral disc [facility]* Diagnosis Nausea and vomiting- Primary Nausea with vomiting Generalized abdominal pain Abdominal pain, generalized Type 2 diabetes mellitus (HCC) Type II or unspecified type diabetes mellitus without mention of complication, not stated as uncontrolled Gastroparesis documented in this encounter [facility] note* Diagnosis Type 2 diabetes mellitus with hyperglycemia, with long-term current use of insulin ([facility])- Primary Major depressive disorder, recurrent, moderate ([facility]) Major depressive disorder, recurrent episode, moderate Generalized anxiety disorder ([facility]) Generalized anxiety disorder Abscess of axilla, left Gastroesophageal reflux disease without esophagitis Esophageal reflux Diabetic gastroparesis associated with type 2 diabetes mellitus ([facility])- Primary Type II or unspecified type diabetes mellitus with neurological manifestations, not stated as uncontrolled DDD (degenerative disc disease), lumbar Degeneration of lumbar or lumbosacral intervertebral disc Type 2 diabetes mellitus with hyperglycemia, with long-term current use of insulin ([facility]) Immunodeficiency due to conditions classified elsewhere ([facility]) Gastro-esophageal reflux disease without esophagitis Body mass index (BMI) 38.0-38.9, adult Diabetic gastroparesis associated with type 2 diabetes mellitus ([facility]/HCC)- Primary Type II or unspecified type diabetes mellitus with neurological manifestations, not stated as uncontrolled Type 2 diabetes mellitus with hyperglycemia, with long-term current use of insulin ([facility]) Major depressive disorder, recurrent, moderate ([facility]/HCC) Major depressive disorder, recurrent episode, moderate Diabetic gastroparesis associated with type 2 diabetes mellitus ([facility]/HCC)- Primary Type II or unspecified type diabetes mellitus with neurological manifestations, not stated as uncontrolled Type 2 diabetes mellitus with hyperglycemia, with long-term current use of insulin ([facility]) Major depressive disorder, recurrent, moderate (CMS/HCC) Major depressive disorder, recurrent episode, moderate Nonalcoholic fatty liver documented in this encounter [facility]* Diagnosis Generalized abdominal pain- Primary Abdominal pain, generalized [facility] Diagnosis Type 2 diabetes mellitus with hyperglycemia, with long-term current use of insulin (CMS/HCC)- Primary Major depressive disorder, recurrent, moderate (CMS/HCC) Major depressive disorder, recurrent episode, moderate Generalized anxiety disorder (CMS/HCC) Generalized anxiety disorder Abscess of axilla, left Gastroesophageal reflux disease without esophagitis Esophageal reflux Diabetic gastroparesis associated with type 2 diabetes mellitus (CMS/HCC)- Primary Type II or unspecified type diabetes mellitus with neurological manifestations, not stated as uncontrolled DDD (degenerative disc disease), lumbar Degeneration of lumbar or lumbosacral intervertebral disc Type 2 diabetes mellitus with hyperglycemia, with long-term current use of insulin ([facility]/HCC) Immunodeficiency due to conditions classified elsewhere ([facility]) Gastro-esophageal reflux disease without esophagitis Body mass index (BMI) 38.0-38.9, adult Diabetic gastroparesis associated with type 2 diabetes mellitus (CMS/HCC)- Primary Type II or unspecified type diabetes mellitus with neurological manifestations, not stated as uncontrolled Type 2 diabetes mellitus with hyperglycemia, with long-term current use of insulin ([facility]/HCC) Major depressive disorder, recurrent, moderate (CMS/HCC) Major depressive disorder, recurrent episode, moderate Diabetic gastroparesis associated with type 2 diabetes mellitus (CMS/HCC)- Primary Type II or unspecified type diabetes mellitus with neurological manifestations, not stated as uncontrolled Type 2 diabetes mellitus with hyperglycemia, with long-term current use of insulin ([facility]/HCC) Major depressive disorder, recurrent, moderate (CMS/HCC) Major depressive disorder, recurrent episode, moderate Nonalcoholic fatty liver Diabetic gastroparesis associated with type 2 diabetes mellitus (CMS/HCC)- Primary Type II or unspecified type diabetes mellitus with neurological manifestations, not stated as uncontrolled Type 2 diabetes mellitus with hyperglycemia, with long-term current use of insulin ([facility]/HCC) Class 2 severe obesity due to excess calories with serious comorbidity and body mass index (BMI) of 37.0 to 37.9 in adult (CMS/HCC) Nonalcoholic fatty liver documented in this encounter [facility] Healthcare[facility] note* Diagnosis Diabetic gastroparesis associated with type 2 diabetes mellitus (CMS/HCC)- Primary Type II or unspecified type diabetes mellitus with neurological manifestations, not stated as uncontrolled Type 2 diabetes mellitus with hyperglycemia, with long-term current use of insulin (CMS/HCC) Major depressive disorder, recurrent, moderate (CMS/HCC) Major depressive disorder, recurrent episode, moderate [facility] Diagnosis Nausea and vomiting, unspecified vomiting type- Primary [facility] Diagnosis Gastroparesis- Primary [facility]* Diagnosis Type 2 diabetes mellitus with hyperglycemia, with long-term current use of insulin (CMS/HCC)- Primary Major depressive disorder, recurrent, moderate (CMS/HCC) Major depressive disorder, recurrent episode, moderate Generalized anxiety disorder (CMS/HCC) Generalized anxiety disorder Abscess of axilla, left Gastroesophageal reflux disease without esophagitis Esophageal reflux Diabetic gastroparesis associated with type 2 diabetes mellitus (CMS/HCC)- Primary Type II or unspecified type diabetes mellitus with neurological manifestations, not stated as uncontrolled DDD (degenerative disc disease), lumbar Degeneration of lumbar or lumbosacral intervertebral disc Type 2 diabetes mellitus with hyperglycemia, with long-term current use of insulin ([facility]) Immunodeficiency due to conditions classified elsewhere ([facility]) Gastro-esophageal reflux disease without esophagitis Body mass index (BMI) 38.0-38.9, adult Diabetic gastroparesis associated with type 2 diabetes mellitus (CMS/HCC)- Primary Type II or unspecified type diabetes mellitus with neurological manifestations, not stated as uncontrolled Type 2 diabetes mellitus with hyperglycemia, with long-term current use of insulin ([facility]) Major depressive disorder, recurrent, moderate (CMS/HCC) Major depressive disorder, recurrent episode, moderate Diabetic gastroparesis associated with type 2 diabetes mellitus (CMS/HCC)- Primary Type II or unspecified type diabetes mellitus with neurological manifestations, not stated as uncontrolled Type 2 diabetes mellitus with hyperglycemia, with long-term current use of insulin ([facility]/HCC) Major depressive disorder, recurrent, moderate (CMS/HCC) Major depressive disorder, recurrent episode, moderate Nonalcoholic fatty liver Diabetic gastroparesis associated with type 2 diabetes mellitus (CMS/HCC)- Primary Type II or unspecified type diabetes mellitus with neurological manifestations, not stated as uncontrolled Type 2 diabetes mellitus with hyperglycemia, with long-term current use of insulin ([facility]) Class 2 severe obesity due to excess calories with serious comorbidity and body mass index (BMI) of 37.0 to 37.9 in adult ([facility]) Nonalcoholic fatty liver Type 2 diabetes mellitus with hyperglycemia, with long-term current use of insulin ([facility])- Primary Diabetic gastroparesis associated with type 2 diabetes mellitus ([facility]) Type II or unspecified type diabetes mellitus with neurological manifestations, not stated as uncontrolled Dyslipidemia ([facility]) Other and unspecified hyperlipidemia Nonalcoholic fatty liver Major depressive disorder, recurrent, moderate ([facility]) Major depressive disorder, recurrent episode, moderate Class 2 severe obesity due to excess calories with serious comorbidity and body mass index (BMI) of 37.0 to 37.9 in adult ([facility]) Type 2 diabetes mellitus with other specified complication ([facility]) [facility] Diagnosis Influenza A- Primary Influenza with other respiratory manifestations [facility]* Diagnosis Acute pancreatitis without infection or necrosis- Primary Acute pancreatitis, unspecified complication status, unspecified pancreatitis type Gastroparesis Type 2 diabetes mellitus ([facility]) Type II or unspecified type diabetes mellitus without mention of complication, not stated as uncontrolled documented in this encounter [facility] note* Diagnosis Type 2 diabetes mellitus with hyperglycemia, with long-term current use of insulin ([facility])- Primary Major depressive disorder, recurrent, moderate ([facility]) Major depressive disorder, recurrent episode, moderate Generalized anxiety disorder ([facility]) Generalized anxiety disorder Abscess of axilla, left Gastroesophageal reflux disease without esophagitis Esophageal reflux Diabetic gastroparesis associated with type 2 diabetes mellitus ([facility])- Primary Type II or unspecified type diabetes mellitus with neurological manifestations, not stated as uncontrolled DDD (degenerative disc disease), lumbar Degeneration of lumbar or lumbosacral intervertebral disc Type 2 diabetes mellitus with hyperglycemia, with long-term current use of insulin ([facility]) Immunodeficiency due to conditions classified elsewhere ([facility]) Gastro-esophageal reflux disease without esophagitis Body mass index (BMI) 38.0-38.9, adult Diabetic gastroparesis associated with type 2 diabetes mellitus ([facility])- Primary Type II or unspecified type diabetes mellitus with neurological manifestations, not stated as uncontrolled Type 2 diabetes mellitus with hyperglycemia, with long-term current use of insulin ([facility]) Major depressive disorder, recurrent, moderate ([facility]) Major depressive disorder, recurrent episode, moderate Diabetic gastroparesis associated with type 2 diabetes mellitus (CMS/HCC)- Primary Type II or unspecified type diabetes mellitus with neurological manifestations, not stated as uncontrolled Type 2 diabetes mellitus with hyperglycemia, with long-term current use of insulin (CMS/HCC) Major depressive disorder, recurrent, moderate (CMS/HCC) Major depressive disorder, recurrent episode, moderate Nonalcoholic fatty liver Diabetic gastroparesis associated with type 2 diabetes mellitus ([facility]/HCC)- Primary Type II or unspecified type diabetes mellitus with neurological manifestations, not stated as uncontrolled Type 2 diabetes mellitus with hyperglycemia, with long-term current use of insulin ([facility]) Class 2 severe obesity due to excess calories with serious comorbidity and body mass index (BMI) of 37.0 to 37.9 in adult (CMS/[facility]) Nonalcoholic fatty liver Type 2 diabetes mellitus with hyperglycemia, with long-term current use of insulin ([facility])- Primary Diabetic gastroparesis associated with type 2 diabetes mellitus ([facility]) Type II or unspecified type diabetes mellitus with neurological manifestations, not stated as uncontrolled Dyslipidemia ([facility]) Other and unspecified hyperlipidemia Nonalcoholic fatty liver Major depressive disorder, recurrent, moderate (CMS/HCC) Major depressive disorder, recurrent episode, moderate Class 2 severe obesity due to excess calories with serious comorbidity and body mass index (BMI) of 37.0 to 37.9 in adult ([facility]) Type 2 diabetes mellitus with other specified complication ([facility]) Generalized anxiety disorder ([facility]) Generalized anxiety disorder [facility]* Diagnosis Intractable abdominal pain- Primary Abdominal pain, unspecified site Acute pancreatitis, unspecified complication status, unspecified pancreatitis type Gastroparesis Type 2 diabetes mellitus (HCC) Type II or unspecified type diabetes mellitus without mention of complication, not stated as uncontrolled Chronic pancreatitis (HCC) Chronic pancreatitis [facility]* Diagnosis Gastroparesis- Primary Diabetic gastroparesis (HCC) (HCC) Type II or unspecified type diabetes mellitus with neurological manifestations, not stated as uncontrolled Chronic idiopathic constipation Unspecified constipation documented in this encounter [facility]* Diagnosis Gastroparesis- Primary documented in this encounter [facility] note* Diagnosis Gastroparesis- Primary documented in this encounter [facility] note* Diagnosis Gastroparesis- Primary Gastroesophageal reflux disease, unspecified whether esophagitis present Functional constipation Other constipation [facility] Gastroparesis- Primary documented in this encounter [facility] note* Diagnosis Pre-op evaluation- Primary Preoperative examination, unspecified Essential hypertension Unspecified essential hypertension Mild concentric left ventricular hypertrophy (LVH) Nonalcoholic fatty liver Factor V Leiden (HCC) Primary hypercoagulable state Hypercoagulable state (HCC) Primary hypercoagulable state Dyslipidemia Other and unspecified hyperlipidemia History of pulmonary embolism Personal history of pulmonary embolism Obesity with body mass index 30 or greater Mild intermittent asthma without complication (HCC) Unspecified asthma Diabetic gastroparesis associated with type 2 diabetes mellitus (HCC) Type II or unspecified type diabetes mellitus with neurological manifestations, not stated as uncontrolled * Assessment & Plan Note - Chapin Foote APRN.CNP - 12/24/2024 11:43 AM EDT Associated Problem(s): Diabetic gastroparesis associated with type 2 diabetes mellitus (HCC) Assessment: HPI * Assessment & Plan Note - Chapin Foote APRN.CNP - 12/24/2024 11:18 AM EDT Associated Problem(s): Chronic pancreatitis (HCC) Assessment: Per records review * Assessment & Plan Note - Chapin Foote APRN.CNP - 12/24/2024 11:17 AM EDT Associated Problem(s): Mild intermittent asthma without complication (HCC) Assessment: Stable on current PRN RX, last used rescue inhaler, over 3 months ago - No recent exacerbations - On examination today, breathing easy, lungs CTA * Assessment & Plan Note - Chapin Foote APRN.CNP - 12/23/2024 8:14 AM EDT Associated Problem(s): Obesity with body mass index 30 or greater Assessment: BMI 37 * Assessment & Plan Note - Chapin Foote APRN.CNP - 12/23/2024 8:14 AM EDT Associated Problem(s): History of pulmonary embolism Assessment: Noted per outside records - No current AC - Factor V Leiden - See hypercoagulable state above * Assessment & Plan Note - Chapin Foote APRN.CNP - 12/23/2024 8:14 AM EDT Associated Problem(s): Dyslipidemia Assessment: managing with Atorvastatin (Lipitor) * Assessment & Plan Note - Chapin Foote APRN.CNP - 12/23/2024 8:13 AM EDT Associated Problem(s): Hypercoagulable state (HCC) Assessment: Per outside records, Factor V Leiden, not on AC - Patient is uncertain if heterozygous -vs- homozygous - Developed bilat PEs 2020 after - Work up revealed Factor V - Completed AC for the PE's for about 3-6 months, then it was d/c'd - Significant family history of thrombosis - father, pat grandfather * Assessment & Plan Note - Chapin Foote APRN.CNP - 12/23/2024 8:13 AM EDT Associated Problem(s): Factor V Leiden (HCC) Assessment: Noted per outside records No Anticoagulation See hypercoagulable state below * Assessment & Plan Note - Chapin Foote APRN.CNP - 12/23/2024 8:13 AM EDT Associated Problem(s): Type 2 diabetes mellitus (HCC) Assessment: Follows with [facility] or PCP No primary care provider on file. - Fair control -Current medications: Glipizide Yesenia lantus -BS checks at home range about 196-200 -Last A1c Hemoglobin A1C (%) Date Value 12/02/2024 7.9 ) * Assessment & Plan Note - Chapin Foote APRN.CHIEF MINISTER - 12/23/2024 8:12 AM EDT Associated Problem(s): Nonalcoholic fatty liver Assessment: follows with provider at home Alkaline Phosphatase 95 10/16/2024 Bilirubin, Total 0.5 10/16/2024 AST 31 10/16/2024 ALT 36 10/16/2024 * Assessment & Plan Note - Chapin Foote APRN.CNP - 12/23/2024 8:12 AM EDT Associated Problem(s): Gastroesophageal reflux disease Assessment: Managing with Pantoprazole (Protonix), Metoclopramide, sucralfate * Assessment & Plan Note - Chapin Foote APRN.CNP - 12/23/2024 8:11 AM EDT Associated Problem(s): Mild concentric left ventricular hypertrophy (LVH) Assessment: Per outside records review Echo 2020 in [place] completed for tachycardia: Summary Global [...] of tachycardia was identified from this study. * Assessment & Plan Note - Chapin Foote APRN.CNP - 12/23/2024 8:10 AM EDT Associated Problem(s): Essential hypertension Assessment: -Follows with No primary care provider on file. -Current RX: NONE -BP today: 147/98 Last 5 Encounter BP Readings: Date: BP: 12/02/2024 128/87 10/16/2024 123/68 documented in this encounter [facility] note* Diagnosis Right upper quadrant abdominal pain- Primary Abdominal pain, right upper quadrant documented in this encounter [facility] note* Diagnosis Type 2 diabetes mellitus with hyperglycemia, with long-term current use of insulin ([facility])- Primary Major depressive disorder, recurrent, moderate ([facility]) Major depressive disorder, recurrent episode, moderate Generalized anxiety disorder ([facility]) Generalized anxiety disorder Abscess of axilla, left Gastroesophageal reflux disease without esophagitis Esophageal reflux Diabetic gastroparesis associated with type 2 diabetes mellitus ([facility])- Primary Type II or unspecified type diabetes mellitus with neurological manifestations, not stated as uncontrolled DDD (degenerative disc disease), lumbar Degeneration of lumbar or lumbosacral intervertebral disc Type 2 diabetes mellitus with hyperglycemia, with long-term current use of insulin ([facility]) Immunodeficiency due to conditions classified elsewhere ([facility]) Gastro-esophageal reflux disease without esophagitis Body mass index (BMI) 38.0-38.9, adult Diabetic gastroparesis associated with type 2 diabetes mellitus ([facility])- Primary Type II or unspecified type diabetes mellitus with neurological manifestations, not stated as uncontrolled Type 2 diabetes mellitus with hyperglycemia, with long-term current use of insulin ([facility]) Major depressive disorder, recurrent, moderate ([facility]) Major depressive disorder, recurrent episode, moderate Diabetic gastroparesis associated with type 2 diabetes mellitus ([facility])- Primary Type II or unspecified type diabetes mellitus with neurological manifestations, not stated as uncontrolled Type 2 diabetes mellitus with hyperglycemia, with long-term current use of insulin ([facility]) Major depressive disorder, recurrent, moderate ([facility]) Major depressive disorder, recurrent episode, moderate Nonalcoholic fatty liver Diabetic gastroparesis associated with type 2 diabetes mellitus ([facility])- Primary Type II or unspecified type diabetes mellitus with neurological manifestations, not stated as uncontrolled Type 2 diabetes mellitus with hyperglycemia, with long-term current use of insulin ([facility]) Class 2 severe obesity due to excess calories with serious comorbidity and body mass index (BMI) of 37.0 to 37.9 in adult ([facility]) Nonalcoholic fatty liver Type 2 diabetes mellitus with hyperglycemia, with long-term current use of insulin ([facility])- Primary Diabetic gastroparesis associated with type 2 diabetes mellitus ([facility]) Type II or unspecified type diabetes mellitus with neurological manifestations, not stated as uncontrolled Dyslipidemia ([facility]) Other and unspecified hyperlipidemia Nonalcoholic fatty liver Major depressive disorder, recurrent, moderate ([facility]) Major depressive disorder, recurrent episode, moderate Class 2 severe obesity due to excess calories with serious comorbidity and body mass index (BMI) of 37.0 to 37.9 in adult ([facility]) Type 2 diabetes mellitus with other specified complication DDD (degenerative disc disease), lumbar Degeneration of lumbar or lumbosacral intervertebral disc [facility] Diagnosis Pre-op evaluation- Primary Preoperative examination, unspecified Essential hypertension Unspecified essential hypertension Mild concentric left ventricular hypertrophy (LVH) Nonalcoholic fatty liver Factor V Leiden (HCC) Primary hypercoagulable state Hypercoagulable state (HCC) Primary hypercoagulable state Dyslipidemia Other and unspecified hyperlipidemia History of pulmonary embolism Personal history of pulmonary embolism Obesity with body mass index 30 or greater Mild intermittent asthma without complication (HCC) Unspecified asthma Diabetic gastroparesis associated with type 2 diabetes mellitus (HCC) Type II or unspecified type diabetes mellitus with neurological manifestations, not stated as uncontrolled Chronic generalized abdominal pain- Primary Abdominal pain, generalized documented in this encounter [facility] note* Diagnosis Right upper quadrant abdominal pain- Primary Abdominal pain, right upper quadrant [facility]* Diagnosis Gastroparesis- Primary documented in this encounter [facility] note* Diagnosis Pre-op evaluation- Primary Preoperative examination, unspecified Essential hypertension Unspecified essential hypertension Mild concentric left ventricular hypertrophy (LVH) Nonalcoholic fatty liver Factor V Leiden (HCC) Primary hypercoagulable state Hypercoagulable state (HCC) Primary hypercoagulable state Dyslipidemia Other and unspecified hyperlipidemia History of pulmonary embolism Personal history of pulmonary embolism Obesity with body mass index 30 or greater Mild intermittent asthma without complication (HCC) Unspecified asthma Diabetic gastroparesis associated with type 2 diabetes mellitus (HCC) Type II or unspecified type diabetes mellitus with neurological manifestations, not stated as uncontrolled Chronic generalized abdominal pain- Primary Abdominal pain, generalized Gastroparesis 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) Type II or unspecified type diabetes mellitus with neurological manifestations, not stated as uncontrolled Tobacco dependence Tobacco use disorder Episodic cannabis use [facility] Narrative No data available for this section [facility] [place] [facility] Discharge instructions* Attachments The following attachments cannot be sent through Care Everywhere. * [facility] ([place]* Attachments The following attachments cannot be sent through Care Everywhere. * URI (Upper Respiratory Infection) ([place]i) * Coronavirus Disease (COVID-19): General Info ([place]) [facility] Discharge [facility]* Instructions* Samy Walker MD - 12/05/2021 Return to the ED for persistently elevated blood sugar, development of vomiting, abdominal pain, fever or other concerns. [facility]: Hospital Discharge instructions* Attachments The following attachments cannot be sent through Care Everywhere. * URI (Upper Respiratory Infection): Viral ([place]) documented in this [employer] Phone: spital Discharge instructions* Instructions* Samy Walker MD - [...] sent through Care Everywhere. * Abdominal Pain ([place]i) * Nausea and Vomiting ([place]i) * Diarrhea ([place]) documented in this [facility] Work Phone: Hospital Discharge instructions* Attachments The following attachments cannot be sent through Care Everywhere. * Endometriosis ([place]) documented in this [facility] Work Phone: Hospital Discharge instructions No data available for this section [facility] [place] [facility] Discharge instructions* Attachments The following attachments cannot be sent through Care Everywhere. * Abdominal Pain ([place]i) documented in this [facility] Discharge instructions* Attachments The following attachments cannot be sent through Care Everywhere. * Abdominal Pain ([place]i) * Gastroparesis ([place]i) * Nausea and Vomiting ([place]) documented in this [facility] No data available for this section [facility] [place] Reason for referral (narrative) , bariatric surgery eval at [facility] Referred by: Beto GREWAL, dr maira Ohara Referred by: Beto GREWAL, Aly Whitten [facility] Digestive Health Discharge Instructions * Instructions* Rod Conte MD - 05/19/2019 Have US done to rule out DVT done tomorrow as instructed * Attachments The following attachments cannot be sent through Care Everywhere. * Leg Pain (Somali) documented in this encounter* Attachments The following attachments cannot be sent through Care Everywhere. * Nausea and Vomiting (Somali) documented in this encounter* Instructions* Efra Vazquez [...] be sent through Care Everywhere. * Trichomoniasis (Somali) documented in this encounter* Instructions* Reina Magaña RN - 02/01/2020 OUTPATIENT DISCHARGE Ramila Courtney [facility] ACTIVITY LIMITATIONS: ( x )Up and [...] through Care Everywhere. * : Abdominal Pain (Somali) * Dizziness (Somali) documented in this encounter* Instructions* Krystyna Pino PA-C - 12/14/2019 Call to arrange follow-up with your INSURANCE SOLICITOR. Continue to monitor your blood sugar and your blood pressure. * Attachments The following attachments cannot be sent through Care Everywhere. * : Abdominal Pain (Somali) documented in this encounter* Instructions* Elo Gamino, RN - 02/26/2020 OUTPATIENT DISCHARGE Ananya Do [facility] [place] [address] Boucher Ramila Courtney [facility] Hien Irving [facility] Ramila Bustillos [facility] Colten Valenzuela [facility] ACTIVITY LIMITATIONS: ( x)Up and about as [...] RN - 03/29/2020 OUTPATIENT DISCHARG Ramila Courtney [facility] ACTIVITY LIMITATIONS: (x )Up and about [...] RN - 04/08/2020 OUTPATIENT DISCHARGE Ramila Courtney [facility] ACTIVITY LIMITATIONS: ( x )Up and [...] DELIVERY . documented in this encounter* Instructions* Mina Harp RN - 05/24/2020 Follow-up with your OB doctor as specified. [facility] OB Department phone: Dr. Scooter Farfan [facility] Dr. Terell Elmore [facility] [address] [facility] [address] [place] DIET Eat a well balanced diet focusing on foods high in fiber and protein. Drink plenty of fluids especially water. To avoid constipation you may take a mild stool softener as recommended by your doctor or automatic head sawyer. ACTIVITY Gradually increase your activity. Resume exercise regimen only after advice by your doctor or automatic head sawyer. Avoid lifting anything heavier than a gallon of milk for SIX weeks. Avoid driving until your doctor or automatic head sawyer has given their approval. Rise slowly from [...] have thoughts of harming yourself or your infant. If infant will not stop crying, contact another adult [...] medications as recommended by your doctor or automatic head sawyer for pain If you develop a warm, red, tender area on your breast or develop a fever contact your OB provider. For moms: If you become engorged, feeding may be more difficult or painful for 1-2 days. You may find it helpful to hand express some milk so that the infant can latch on more easily. While , continue to take your vitamins as directed by your doctor or automatic head sawyer. Refer to the booklet in the folder/binder for more information. If you feel you need more assistance or have questions, please call Debby Stanley IBCLC, protection consultant, at or the OB department to [...] they become loose or soiled. If used, [place] should be removed by your care provider. [...] in this encounter* Discharge Instr - Activity* Chapni Gurrola RN - 06/15/2020 12:35 PM EDT Increase activity, up walking. Use incentive spirometer 10 times every 2-4 hours * Discharge Instr - Diet* Chapin Gurrola RN - 06/15/2020 12:35 PM EDT General diet * Attachments The following attachments cannot be sent through Care Everywhere. * Blood Clots: Inpatient: Quick List (Somali) * Pulmonary Embolism (Somali) documented in this encounter* Attachments The following attachments cannot be sent through Care Everywhere. * Acute Concussion (Somali) * Head Injury: Closed: General Info (Somali) documented in this encounter* Attachments The following attachments cannot be sent through Care Everywhere. * Abdominal Pain (Somali) documented in this encounter* Instructions* Krystyna Pino PA-C - 09/17/2020 Call to arrange follow-up with back specialist listed below. * Attachments The following attachments cannot be sent through Care Everywhere. * Herniated Disc (S[place]i) documented in this encounter* Instructions* Patricia Recio MD - 09/26/2020 Call today or tomorrow to follow up with Yossi Golden MD to make them aware of your [...] hours or 2 tablets every 4 hours) Stu' Flexion Exercises 1. Pelvic tilt. Lie on [...] or concern. documented in this encounter* Instructions* Mina Harp RN - 04/29/2020 OUTPATIENT DISCHARGE Ananya Do [facility] or [place] ACTIVITY LIMITATIONS: ( x)Up and [...] sent through Care Everywhere. * Abscess: Skin (Somali) documented in this encounter* Discharge Instr - DARREL* Efra Vazquez MD - 07/28/2019 10:16 PM EST Continuity of Care Form Patient Name: Gael Archibald : 1995 Admit date: 07/28/2019 Discharge date: Code Status Order: Prior Advance Directives: Admitting Physician: No admitting provider for patient encounter. PCP: Yossi Golden MD Discharging Nurse: Discharging Hospital Unit/Room#: 12/25 Discharging Unit Phone Number: Emergency Contact: Extended Emergency Contact Information Primary Emergency Contact: MALENA RUBY [place] Relation: Other Past Surgical History: Past Surgical History: Procedure Laterality Date SECTION 03/22/2016 CHOLECYSTECTOMY 03/29/2017 CHOLECYSTECTOMY, LAPAROSCOPIC N/A 03/29/2017 CHOLECYSTECTOMY LAPAROSCOPIC XI ROBOTIC performed by Anival Hinson IV, DO at [facility] OR CYSTOSCOPY 07-22-2012 DILATION AND CURETTAGE OF [...] 03/30/16 03/30/16 Aissatou Yoder, RN 03/25/17 Sarahi Lockwood RN 03/05/2016 screening Nurse Assessment: Last Vital Signs: [...] (114.8 kg) Mental Status: {IP PT MENTAL STATUS:08323} IV Access: { DARREL IV ACCESS:104164541} Nursing Mobility/ADLs: Walking {[facility] DME ADLs:594934599} Transfer {[facility] DME ADLs:520816024} Bathing {P DME ADLs:682052547} Dressing {[facility] DME ADLs:726668973} Toileting {[facility] DME ADLs:901685274} Feeding {[facility] DME ADLs:692153028} Harbor Master {P DME ADLs:764043908} Med Delivery { DARREL MED Delivery:230049602} Wound Care Documentation and Therapy: Incision 03/29/17 Abdomen (Active) Number of days: 851 Incision 03/29/17 Abdomen (Active) Number of days: 851 Elimination: Continence: Bowel: {YES / NO:} Bladder: {YES / NO:} Urinary Catheter: {Urinary Catheter:062925446} Colostomy/Ileostomy/Ileal Conduit: {YES / NO:} Date of Last BM: No intake or output data in the 24 hours ending 07/28/195 No intake/output data recorded. Safety Concerns: { DARREL Safety Concerns:087102290} Impairments/Disabilities: {[facility] Impairments/Disabilities:693275283} Nutrition Therapy: Current Nutrition Therapy: { DARREL Diet List:055201585} Routes of Feeding: {[facility] DME Other Feedings:000324747} Liquids: {[facility] liquid thickness:97690} Daily Fluid Restriction: {P DME Yes amt example:672071560} Last Modified Barium Swallow with Video (Video Swallowing Test): {Done Not Done Date:639330419} Treatments at the Time of Hospital Discharge: Respiratory Treatments: Oxygen Therapy: {Therapy; copd oxygen:96755} Ventilator: {[facility] Vent List:699899318} Rehab Therapies: {THERAPEUTIC INTERVENTION:0802056667} Weight Bearing Status/Restrictions: {[facility] Weight Bearin} Other Medical Equipment (for information only, NOT a DME order): {EQUIPMENT:836061649} Other Treatments: Patient's personal belongings (please select all that are sent with patient): {[facility] DME Belongings:064456365} RN SIGNATURE: {Esignature:720402488} CASE MANAGEMENT/SOCIAL WORK SECTION Inpatient Status Date: Readmission Risk Assessment Score: Readmission Risk Risk of Unplanned Readmission: 0 Discharging to Facility/ Agency Name: Address: Phone: Fax: Dialysis Facility (if applicable) Name: Address: Dialysis Schedule: Phone: Fax: Pattern Maker Programer/Manager Corporate signature: {Esignature:192590122} PHYSICIAN SECTION Prognosis: {Prognosis:3366429125} Condition at Discharge: { Patient Condition:342224329} Rehab Potential (if transferring to Rehab): {Prognosis:7671558896} Recommended Labs or Other Treatments After Discharge: Physician Certification: I certify the above information and transfer of Gael Archibald is necessary for the continuing treatment of the diagnosis listed and that she requires {Admit to Appropriate Level of Care:60529} for {GREATER/LESS:216450916} 30 days. Update Admission H&P: {[facility] DME Changes in HandP:225682665} PHYSICIAN SIGNATURE: {Esignature:240401305} * Additional Instructions* Efra Vazquez MD - [...] through Care Everywhere. * Ovarian Cyst: Functional (Somali) documented in this encounter* Instructions* Ana Solares RN - 04/02/2020 Home Undelivered Discharge Instructions After Discharge Orders: Future Appointments Date Time Provider Department Center 04/04/2020 9:40 AM Silvio Gr MD [facility] 04/27/2020 12:30 PM GYNAECOLOGICAL ONCOLOGIST 1 Mat TOLPP Call if need a refill on procardia [...] swishes, or rolls. Call your physician or automatic head sawyer if there have not been 10 kicks in 2 hours Call physician or automatic head sawyer, return to Labor and Delivery, call 911, [...] cyst Advance Directives No Advanced Directives Records Found Date Activated Date Inactivated Comments 11/05/2024 2:35 AM 11/06/2024 2:26 PM Date Activated Date Inactivated Comments 10/20/2024 3:33 PM 10/21/2024 1:42 PM Date Activated Date Inactivated Comments 07/07/2024 2:47 PM 07/08/2024 3:37 PM Date Activated Date Inactivated Comments 12/24/2023 11:50 PM 12/25/2023 1:35 PM Date Activated Date Inactivated Comments 07/29/2023 8:38 PM 07/30/2023 6:38 PM Healthcare Agents on File Name Relationship Healthcare Agent Relationship Communication Malena Ruby Spouse Primary Decision Maker Lorraine Shira Other Secondary Decision Maker Date Activated Date Inactivated Comments 07/07/2024 2:47 PM 07/08/2024 3:37 PM Date Activated Date Inactivated Comments 12/24/2023 11:50 PM 12/25/2023 1:35 PM Date Activated Date Inactivated Comments 07/29/2023 8:38 PM 07/30/2023 6:38 PM Date Activated Date Inactivated Comments 06/21/2023 5:25 AM 06/21/2023 4:29 PM Date Activated Date Inactivated Comments 11/12/2022 8:17 AM 11/12/2022 3:52 PM Healthcare Agents on File Name Relationship Healthcare Agent Relationship Communication Malena Ruby Spouse Primary Decision Maker Documents on File Type Date Recorded Patient Bee Worker Expl anation Advance Directives and Living Will Power of Tare Worker Latest Code Status on File Code Status Date Activated Date Inactivated Comments Full Code 11/09/2017 12:12 PM 11/09/2017 6:13 PM Full Code 09/20/2017 2:44 AM 09/20/2017 4:37 PM Full Code 07/10/2017 2:26 AM 07/10/2017 7:34 PM Full Code 03/25/2017 12:49 AM 03/29/2017 8:50 PM Full Code 03/22/2016 7:40 AM 03/24/2016 6:02 PM Documents on File Type Date Recorded Patient Bee Worker Expl anation Advance Directives and Living Will Power of Tare Worker Latest Code Status on File Code Status [...] Documents on File Type Date Recorded Patient Bee Worker Expl anation ACP-Advance Directive ACP-Power of Tare Worker Latest Code Status on File Code Status Date Activated Date Inactivated Comments Full Code 04/29/2020 12:16 PM 04/29/2020 4:34 PM Full Code 04/07/2020 11:23 PM 04/08/2020 3:32 AM Full Code 02/26/2020 5:08 PM 02/26/2020 9:06 PM Full Code 02/01/2020 9:22 PM 02/01/2020 11:59 PM Documents on File Type Date Recorded Patient Bee Worker Expl anation ACP-Advance Directive ACP-Power of Tare Worker Latest Code Status on File Code Status [...] Name Relationship Healthcare Agent Relationship Communication Malena Ruby Spouse Primary Decision Maker Latest Code Status [...] Name Relationship Healthcare Agent Relationship Communication Malena Ruby Spouse Primary Decision Maker Healthcare Agents on File Name Relationship Healthcare Agent Relationship Communication Malena Ruby Spouse Primary Decision Maker Healthcare Agents on File Name Relationship Healthcare Agent Relationship Communication Malena Ruby Spouse Primary Decision Maker Healthcare Agents on File Name Relationship Healthcare Agent Relationship Communication Malena Ruby Spouse Primary Decision Maker Date Activated Date Inactivated Comments 12/24/2023 11:50 PM 12/25/2023 1:35 PM Date Activated Date Inactivated Comments 07/29/2023 8:38 PM 07/30/2023 6:38 PM Date Activated Date Inactivated Comments 06/21/2023 5:25 AM 06/21/2023 4:29 PM Date Activated Date Inactivated Comments 11/12/2022 8:17 AM 11/12/2022 3:52 PM Date Activated Date Inactivated Comments 09/25/2020 1:58 AM 09/26/2020 5:40 PM Healthcare Agents on File Name Relationship Healthcare Agent Relationship Communication Malena Ruby Spouse Primary Decision Maker Healthcare Agents on File Name Relationship Healthcare Agent Relationship Communication Malena Ruby Spouse Primary Decision Maker Date Activated Date Inactivated Comments 12/24/2023 11:50 PM 12/25/2023 1:35 PM Date Activated Date Inactivated Comments 07/29/2023 8:38 PM 07/30/2023 6:38 PM Date Activated Date Inactivated Comments 06/21/2023 5:25 AM 06/21/2023 4:29 PM Date Activated Date Inactivated Comments 11/12/2022 8:17 AM 11/12/2022 3:52 PM Date Activated Date Inactivated Comments 09/25/2020 1:58 AM 09/26/2020 5:40 PM Healthcare Agents on File Name Relationship Healthcare Agent Relationship Communication Malena Ruby Spouse Primary Decision Maker Date Activated Date Inactivated Comments 07/07/2024 2:47 PM Healthcare Agents on File Name Relationship Healthcare Agent Relationship Communication Malena Ruby Spouse Primary Decision Maker Healthcare Agents on File Name Relationship Healthcare Agent Relationship Communication Malena Ruby Spouse Primary Decision Maker Healthcare Agents on File Name Relationship Healthcare Agent Relationship Communication Malena Ruby Spouse Primary Decision Maker Date Activated Date Inactivated Comments 10/20/2024 3:33 PM Date Activated Date Inactivated Comments 07/07/2024 2:47 PM 07/08/2024 3:37 PM Date Activated Date Inactivated Comments 12/24/2023 11:50 PM 12/25/2023 1:35 PM Date Activated Date Inactivated Comments 07/29/2023 8:38 PM 07/30/2023 6:38 PM Date Activated Date Inactivated Comments 06/21/2023 5:25 AM 06/21/2023 4:29 PM Healthcare Agents on File Name Relationship Healthcare Agent Relationship Communication Malena Ruby Spouse Primary Decision Maker Lorraine Christoferbrien Other Secondary Decision Maker Date Activated Date Inactivated Comments 11/05/2024 2:35 AM Healthcare Agents on File Name Relationship Healthcare Agent Relationship Communication Malena Ruby Spouse Primary Decision Maker Lorrainepatricia Beaulieubrien Other Secondary Decision Maker Healthcare Agents on File Name Relationship Healthcare Agent Relationship Communication Malena Ruby Spouse Primary Decision Maker Lorraine Silva Other Secondary Decision Maker Healthcare Agents on File Name Relationship Healthcare Agent Relationship Communication Malena Ruby Spouse Primary Decision Maker Lorraine Silva Other Secondary Decision Maker Reason for Referral Status Reason Specialty Diagnoses / Procedures Referre d By Contact Referred To Contact Open Radiology Diagnoses Right leg pain Procedures VL DUP LOWER EXTREMITY VENOUS RIGHT Rod Conte MD [address] [place] [address] Status Reason Specialty Diagnoses / Procedures Referred By Contact Referred To Contact Pending Review Radiology Diagnoses RUQ pain Procedures US GALLBLADDER SAEIDQ Krystina Llanes MD [address] [place] [address] Status Reason Specialty Diagnoses / Procedures Referred By Contact Referred To Contact Not Required - [facility] Cardiology / EKG Diagnoses Palpitations Lightheadedness SOB (shortness of breath) Tachycardia Episodic lightheadedness Procedures Holter monitor 24 hour HC HOLTER MONITOR Silvio Gr MD [address] [place] [address] [facility] Ekg [address] [place] [address] Status Reason Specialty Diagnoses / Procedures Referred By Contact Referred To Contact Closed Cardiology / Echocardiography Diagnoses Palpitations Lightheadedness SOB (shortness of breath) Tachycardia Episodic lightheadedness Procedures Echo 2D w doppler w color complete HC 2D ECHO WITHOUT CONTRAST - WITH DOP/COLOR FLOW Silvio Gr MD [address] [place] [address] [facility] Echo [address] [place] [address] Status Reason Specialty Diagnoses / Procedures Referred By Contact Referred To Contact Closed Cardiology / EKG Diagnoses History of pre-eclampsia Palpitations LVH (left ventricular hypertrophy) Tachycardia Procedures Holter monitor 24 hour Silvio Gr MD [address] [place] [address] [facility] Ekg [address] [place] [address] Status Reason Specialty Diagnoses / Procedures Referred By Contact Referred To Contact Pending Review Radiology Diagnoses Abdominal pain, epigastric Procedures FL UGI W AIR CONTRAST Yossi Golden MD [address] [place] [address] Specialty Diagnoses / Procedures Referred By Contac t Referred To Contact Radiology Diagnoses Diabetic gastroparesis (HCC) Procedures NM GASTRIC EMPTYING Yossi Golden MD [address] [place] [address] Referral ID Status Reason Start Date Expiration Date Visits Re quested Visits Authorized [id number] Closed 04/29/2024 04/29/2025 1 1 History of Present Illness * Darlene Werner - 12/30/2019 1:00 PM EDT Explained Holter monitor and diary. documented in this encounter* Darlene Werner - 12/30/2019 12:00 PM EDT Explained policies and procedures of an echocardiogram/doppler study. documented in this encounter* Elo Gamino RN - 02/26/2020 5:05 PM EDT Pt [...] this time documented in this encounter* Ana Solares RN - 03/29/2020 6:[address] Uribe at desk getting ready to go into OR. Notified that pt is ctx every 2-4 minutes lasting 50-60 seconds. Orders received. documented in this encounter* Susan Ontiveros - 05/11/2020 1:30 PM EDT Explained Holter monitor and diary. documented in this encounter* Mina Harp RN - 05/24/2020 11:25 AM EDT discharge instructions explained to pt, pt v.u. of all. * Debby Stanley IBCLC - 05/24/2020 9:30 AM EDT note: [] Feeding observed, see flowsheet. [] Patient states is going well: no complaints. Denies questions or concerns. [x] Patient has questions/concerns. Patient is following feeding plan for late infant. She states that she began to feel tingling with let down yesterday while pumping. Encouraged to continuepumping her breasts at least every 3 hours and to try latching to breast as much as possible. Gave information and referral for tongue tie and dentist trained in release procedure. [x] Verbalizes understanding, advised to follow up with protection consultant if necessary. * Diann Farfan APRN - PURA - 05/24/2020 8:29 AM EDT C/S Labor [...] more uncomfortable today she should stay until Saturday. Due to current regulations we do not [...] # 2 PLAN: Discharge home today * Mina Harp RN - 05/24/2020 7:52 AM EDT Pt resting with eyes closed, easy resps noted. Pt's significant other sleeping on couch at bedside. in nbn. * Ramila Elmore APRN - CNM - 05/23/2020 12:25 PM EDT [...] 110/59 98 F (36.7 C) 59 14 05/22/207 131/70 97.7 F (36.5 C) 59 16 05/22/202050 131/76 97.6 F (36.4 C) 78 14 05/22/202035 131/73 97.7 F (36.5 C) 57 16 05/22/202020 127/61 97.8 F (36.6 C) 60 14 05/22/202005 134/69 97.8 F (36.6 C) 58 16 05/22/201950 (!) 142/81 98 F (36.7 C) 57 16 05/22/201935 132/67 97.9 F (36.6 C) 60 14 05/22/20 193 100 % 05/22/20 192 (!) 157/70 97.5 F (36.4 C) 60 16 100 % 05/22/20 1917 (!) 146/78 97.5 F (36.4 C) Oral [...] to follow instructions on diet * Debby Stanley, IBCLC - 05/23/2020 9:00 AM EDT education: [x] Latch/ good latch vs shallow latch/ steps to obtaining deep latch [x] How to know if is eating enough/ feedings per 24 hours, wet/dirty diapers [x] Feeding/satiety cues education resources given: [x] How to Breastfeed your baby - [facility] publication [x] Information on feeding cues [x] Support group handout [x] Breastpump cleaning guidelines - [facility] [x] & Safe Sleep handout - [facility] publication [x] Calling All Dads! Handout - [facility] publication [] Breast and Nipple Care - [facility] [] Breastmilk Collection & Storage - [facility] [] Breastpump Kit Care - [facility] [] Going Back to Work - [facility] [] Preventing Engorgement - [facility] Supplies given: [] Pace, soap and basin for breastpump cleaning [] Insurance pump provided through [employer] [] Insurance pump provided through [facility] [employer] Explained to patient, patient verbalizes understanding. Signed: Debby Stanley RN, BSN, IBCLC * Estephanie Ramila Dixie, PRECIPITATOR OPERATOR - CN - 05/23/2020 7:02 AM EDT [...] 110/59 98 F (36.7 C) 59 14 05/22/207 131/70 97.7 F (36.5 C) 59 16 [...] 05/22/20 1900 137/88 56 14 100 % 05/22/201854 132/74 65 16 100 % 08/30/20 1850 (!) 141/80 65 18 100 % [...] 1905 Report given to NU Fletcher * Mina Harp RN - 05/22/2020 4:55 PM EDT Pt's lower abdomen and upper pubic area clipped. RN washes her abdomen with CHP soap. * Mina Harp RN - 05/22/2020 4:15 PM EDT [...] Mckeon RPH - 06/15/2020 12:18 PM EDT [facility] Inpatient Medication Education Note Patient admitted for PE. Medications reviewed with the patient include: Eliquis (patient education monograph provided), hydrocodone/acetaminophen, morphine, pantoprazole. Patient provided with Eliquis research and development researcher coupons. Patient education provided when necessary to [...] - 06/14/2020 10:[address] Ybarra bond runner hospitalist called for pain control as norco [...] deemed medically stable. [place] with her and their 3 small children ages a 4, 2 and . She notes good informal support network including her mother, mother in law and sister in law. Patient uses no DME but does have a rescue inhaler that she uses as needed. She doesnot work outside of her home but is employed by an [employer] in [place]. Patient isindependent with her ADL's and manages her own household. PCP is Dr. Golden. Patient reports having no difficulty with affording her medications. Discharge plan is home when stable. She does voice interest in pursuing medical directives but wants to review forms prior to executing. Copies of documents provided for her use. Patient is a 'Full Code' status at this time. BOROUGH COORDINATOR to monitor for any/all needs and assist as appropriate. 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 Strength: Not Performed Estimated Daily Nutrient Needs: Energy (kcal): 8822-4115(18-22); Weight Used for Energy Requirements: Current Protein (g): 76-83(1.2-1.3); Weight Used for Protein Requirements: [place] Fluid (ml/day): 2200; Weight Used for Fluid Requirements: Current Nutrition Related Findings: obese Wounds: None Current Nutrition Therapies: DIET GENERAL; No Added Salt (3-4 GM) Anthropometric Measures: Height: 5' 8 (172.7 cm) Current Body Weight: 220 lb 3.2 oz (99.9 kg) Admission Body Weight: 215 lb (97.5 kg) Usual Body Weight: 260 lb (117.9 kg)(pregravid weight) [place] Body Weight: 140 lbs; % [place] Body Weight 157.3 % BMI: 33.5 Adjusted [...] Discharge Planning: Too soon to determine Contact: [id number] * Najma Sweeney RN - 06/14/2020 12:00 AM EDT Design Teacher gave patient a turkey lunch box. * Najma Sweeney RN - 06/13/2020 11:40 PM EDT Patient arrived in ICU room 307 from ER. Patient ambulated to bed safely. Patient rates chest pain 8/10. VS are WNL. Patient did state she would like her PCP to be notified of hospital admission, , number is in chart, will pass on to day shift. Design Teacher oriented patient to room and call light. documented in this encounter* Qian Belcher - 09/26/2020 3:03 PM EST CLINICAL PHARMACY NOTE: MEDS TO [facility] Select Patient?: No Total # of Prescriptions Filled: 2 The following medications were delivered to the patient: METHYLPREDNISOLONE 4 OXYCODONE 5 Total # of Interventions Completed: 0 Time Spent (min): 0 Additional Documentation: * Debby Llanes OT - 09/26/2020 1:44 PM EST oOccupational Therapy Occupational Therapy Initial Assessment Date: 09/26/2020 Patient Name: Gael Ruby : 1995 Date of Service: 09/26/2020 Discharge [...] Ovary removal (06/2010); Tonsillectomy and adenoidectomy (02/2011); [place] tooth extraction (2009); laparoscopy (07-22-2012); Cystocopy (07-22-2012); [...] Ambulation Assistance: Independent Transfer Assistance: Independent Active Binder Cutter Hand: No Mode of Transportation: Family 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 Objective Vision: [...] Gross RUE Strength: WFL R Hand General: 01/25 RUE Strength Comment: Grossly 01/25 AM-PAC Score AM-PAC Inpatient Daily Activity Raw Score: 24 (09/26/201344) AM-PAC Inpatient ADL T-Scale Score : 57.54 (09/26/201344) ADL Inpatient CMS 0-100% Score: 0 (09/26/201344) ADL Inpatient CMS G-Code Modifier : CH (09/26/201344) Therapy Time Individual Concurrent Group Co-treatment Time In 0758 Time Out 0816 Minutes 18 Timed Code Treatment Minutes: 8 Minutes Debby Llanes OTR/L * Silvio Whittington, PT - 09/26/2020 12:01 PM EST Physical Therapy Facility/Department: [address] ORTHO/MED SURG Initial Assessment NAME: Gael Ruby : 1995 Date of Service: 09/26/2020 Discharge [...] Ovary removal (06/2010); Tonsillectomy and adenoidectomy (02/2011); [place] tooth extraction (2009); laparoscopy (07-22-2012); Cystocopy (07-22-2012); [...] AM-PAC Inpatient Mobility Raw Score : 20 (09/26/201146) AM-PAC Inpatient T-Scale Score : 47.67 (09/26/201146) Mobility Inpatient CMS 0-100% Score: 35.83 (09/26/20 114) Mobility Inpatient CMS G-Code Modifier : CJ (09/26/201146) Goals Short term goals Time Frame for Short term goals: No PT needs at this time DC PT Therapy Time Individual Concurrent Group Co-treatment Time In 0755 Time Out 0815 Minutes 20 Silvio Whittington, PT * Murtaza Forbes MD - 09/26/2020 9:00 AM EST [facility] CDU / OBSERVATION eNCOUnter Attending NOte I [...] and PT OT options. Anticipating discharge today. Gael Ruby was evaluated today and a DME order was entered for a wheeled walker because she requires this to successfully complete daily living tasks of ambulating. A wheeled walker is necessary due to the patient's unsteady gait, upper body weakness, and inability to fiber picker an ambulation device; and she can ambulate only by pushing a walker instead of a lesser assistive device such as a cane, crutch, or standard walker. The need for this equipment was discussed with the patient and she understands and is in agreement. Murtaza Forbes MD Attending Emergency Physician * Edilia Bustos RN - 09/26/2020 6:22 AM EST Taylor was discontinued last evening. Up several times to bathrooml voiding good amts. Bladder scanned for 37 ml PVR, Will continue to monitor Edilia Hernandez RN - 09/26/2020 6:21 AM EST Up ambulated 2 laps in bauman with walker and assist x 1. Tolerated well Voices less numbness in bilat legs this am. * Brandi Sun RN - 09/25/2020 7:15 PM EST Taylor pulled per hospital policy and neurosurg recommendation. * Halina Rdz RN - 09/25/2020 6:37 PM EST Patient walked once around the unit standby assist with a walker for stability. Patient tolerated very well. * Murtaza Forbes MD - 09/25/2020 9:50 AM EST [facility] CDU / OBSERVATION eNCOUnter Attending NOte I [...] in the chart. Presents in transfer from [facility] secondary to back pain after picking up child. Patient with MRI done. Neurosurgery involved. Patient with L4-5 central right paracentral disc extrusion abutting descending L5 nerve root not causing significant canal narrowing of mental compromise. Small disc protrusions at T7-8 and T8-9. For reevaluation by neurosurgery. Pain control. Patient for PT OT evaluation. Will ambulate with assistance. Murtaza Forbes MD Attending Emergency Physician documented in this encounter* Mina Harp RN - 04/29/2020 1:50 PM EDT Obstetrical outpatient discharge instructions explained to pt, pt v.u. kick count reviewed, pt v.u. * Mina Harp RN - 04/29/2020 1:30 PM EDT RN calls Anjel URIAS and reports that pt here, RN spoke [...] cervical change, pt may be discharged. * Mina Harp RN - 04/29/2020 12:[address] Uribe present in nbn, RN updates her that pt here with c/o abd cramping and incisional pain. Pt was in office yesterday for NST. * Mina Harp RN - 04/29/2020 12:01 PM EDT [...] ports that Mondays she has ultrasounds in [place] and for NSTs weekly in [place]. Pt states she did not have this [...] up boxes. documented in this encounter* Ana Solares RN - 04/03/2020 12:49 AM EDT DC instructions [...] relates good FM. documented in this encounter Summary Purpose Family History No Family History Records FoundNo Family History Records FoundNo Family History Records FoundNo Family History Records FoundNo Family History Records FoundNo Family History Records FoundNo Family History Records FoundNo Family History Records FoundNo Family History Records FoundNo Family History Records Found No data available for this section No data available for this section No Family History Records FoundNo Family History Records FoundNo Family History Records FoundNo Family History Records FoundNo Family History Records FoundNo Family History Records FoundNo Family History Records Found No data available for this section No data available for this section No Family History Records FoundNo Family History [...] History Records FoundNo Family History Records Found No data available for this section No data available for this section No data available for this section No Family History Records FoundNo Family History Records FoundNo Family History Records FoundNo Family History Records FoundNo Family History Records FoundNo Family History Records Found No data available for this section No data available for this section No Family History Records FoundNo Family History Records FoundNo Family History Records FoundNo Family History Records FoundNo Family History Records FoundNo Family History Records FoundNo Family History Records FoundNo Family History Records FoundNo Family History Records FoundNo Family History Records FoundNo Family History Records FoundNo Family History Records FoundNo Family History Records Found No data available for this section No Family History Records Found No data available for this section No Family History Records FoundNo Family History Records FoundNo Family History Records FoundNo Family History Records FoundNo Family History Records FoundNo Family History Records FoundNo Family History Records FoundNo Family History Records FoundNo Family History Records FoundNo Family History Records FoundNo Family History Records FoundNo Family History Records FoundNo Family History Records FoundNo Family History Records FoundNo Family History Records Found No data available for this section No Family History Records FoundNo Family History Records FoundNo Family History Records FoundNo Family History Records FoundNo Family History Records FoundNo Family History Records FoundNo Family History Records Found No data available for this section No Family History Records FoundNo Family History Records Found No data available for this section No Family History Records Found No data available for this section No Family History Records FoundNo Family History Records FoundNo Family History Records FoundNo Family History Records FoundNo Family History Records FoundNo Family History Records FoundNo Family History Records FoundNo Family History Records Found No data available for this section No data available for this section No Family History Records FoundNo Family History Records FoundNo Family History Records FoundNo Family History Records FoundNo Family History Records Found No data available for this section No Family History Records FoundNo Family History [...] History Records FoundNo Family History Records Found No data available for this section No Family History Records Found No data available for this section No data available for this section No Family History Records FoundNo Family History Records FoundNo Family History Records FoundNo Family History Records FoundNo Family History Records FoundNo Family History Records FoundNo Family History Records FoundNo Family History Records FoundNo Family History Records FoundNo Family History Records FoundNo Family History Records FoundNo Family History Records FoundNo Family History Records FoundNo Family History Records Found Additional Source Comments Reason for Visit (unrecogniz ed section and content) Reason Comments Leg Pain RLE, tender to touch Status Reason Specialty Diagnoses / Procedures Referred By Contact Referred To Contact Open Vascular Lab Diagnoses Leg swelling Procedures [facility] DUPLEX EXTREM VENOUS,UNI OR LTD Rod Conte MD [address] [place] [address] [place] [address] [facility] Vascular Lab [address] [place] [address] [place] [address] Reason Comments Leg Pain left lower leg [...] Recondo Radiology Diagnoses RUQ abdominal tenderness Procedures HC US ABDOMINAL LIMITED Krystina Llanes MD [address] [place] [address] [facility] Ultrasound [address] [place] [address] Reason Comments Dizziness Onset 1400, worse wi [...] hour HC HOLTER MONITOR Silvio Gr MD [address] [place] [address] [facility] Ekg [address] [place] [address] Status Reason Specialty Diagnoses / Procedures Referred By Contact Referred To Contact Closed Cardiology / Echocardiography Diagnoses Palpitations Lightheadedness SOB (shortness of breath) Tachycardia Episodic lightheadedness Procedures Echo 2D w doppler w color complete HC 2D ECHO WITHOUT CONTRAST - WITH DOP/COLOR FLOW Silvio Gr MD [address] [place] [address] [facility] Echo [address] [place] [address] Reason Comments Headache Reason Comments Abdominal Cramping Reason Comments Contractions Status Reason Specialty Diagnoses / Procedures Referred By Contact Referred To Contact Closed Cardiology / EKG Diagnoses History of pre-eclampsia Palpitations LVH (left ventricular hypertrophy) Tachycardia Procedures Holter monitor 24 hour Silvio Gr MD [address] [place] [address] [facility] Ekg [address] [place] [address] Reason Comments Non-stress Test Reason Comments Nausea Contractions Status Reason Specialty Diagnoses / Procedures Referre d By Contact Referred To Contact Diagnoses Gestational diabetes Repeat C/S Procedures DC DELIVERY ONLY SECTION Michael Helms MD [address] [facility] [address] [place] [address] [facility] Reason Comments Chest Pain right sided wal ches t pain started today Status Reason Specialty Diagnoses / Procedures Referre d By Contact Referred To Contact Diagnoses PE (pulmonary thromboembolism) (HCC) PE (pulmonary thromboembolism) (HCC) Dedra Pineda MD [address] [facility], [place] [address] [facility] Reason Comments Fall Onset 2 days ago, [...] Contact Referred To Contact Diagnoses Lumbar radiculopathy Murtaza Forbes MD [facility] [place] [address] [facility] Reason Comments Abscess right groin, onset a pprox 1 week ago Reason Comments Abdominal Pain Right side, upper an d lower, radiating to back and epigastric area per pt. Onset yesterday Status Reason Specialty Diagnoses / Procedures Referre d By Contact Referred To Contact Diagnoses Menorrhagia MENORRHAGIA Procedures DC HYSTEROSCOPY,W/ENDO BX DC HYSTEROSCOPY,W/ENDOMETR IAL ABLATION DILATATION AND CURETTAGE HYSTEROSCOPY CAUTERY ABLATION-NOVASURE Maryam Bess F, DO [address] [place] [address] [facility] Status Reason Specialty Diagnoses / Procedures Referred By Contact Referred To Contact Pending Review Radiology Diagnoses Abdominal pain, epigastric Procedures FL UGI W AIR CONTRAST Yossi Golden MD [address] [place] [address] Reason Comments Cough onset 05/28, taking zp ack, negative covid. Reason Comments Cough Onset this AM, dry. Loss of taste/smell. 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 Denies head injuries, LOC [...] in October with Dr Uribe here at [place]. Pain became severe earlier this evening along with nausea Reason Comments Pelvic Pain Suprapubic pain, int ermittent x 2 years. Onset yesterday. Pt reports history of Endometriosis having surgery hysterctomy Shortness of Breath Reason Comments Abdominal Pain Low mid abdominal pa in, onset this AM. Pt reports history of endometriosis and her period began yesterda Specialty Diagnoses / Procedures Referred By Alie johnson Referred To Contact Diagnoses Dysmenorrhea DYSMENORRHEA, PELVIC PAIN, DYSPAREUNIA Procedures DC LAPS TOTAL HYSTERECT 250 GM/< W/RMVL TUBE/OVARY HYSTERECTOMY VAGINAL LAPAROSCOPIC ROBOTIC, POSSIBLE BSO, POSSIBLE LAPAROSCOPIC COLPOPEXY Maryam Bess, DO [address] [place] [address] [facility] [address] [place] [address] Referral ID Status Reason Start Date Expiration Date Visits Re quested Visits Authorized [id number] 1 1 Reason Comments Chest Pain Onset today, history of PE. History of recent surgery, hysterectomy, Nov 12, 2022 Shortness of Breath Reason Comments Hyperglycemia Patient's blood suga r was 463 at home. 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, last bowel movement this afternoon Reason Comments [...] Left lower abdominal pain also started today Specialty Diagnoses / Procedures Referred By Alie johnson Referred To Contact Radiology Diagnoses Diabetic gastroparesis (HCC) Procedures NM GASTRIC EMPTYING Yossi Golden MD [address] [place] [address] Referral ID Status Reason Start Date Expiration Date Visits Re quested Visits Authorized [id number] Closed 04/29/2024 04/29/2025 1 1 Reason Onset Date Comments Med Refill 06/23/2024 Reason Comments Abdominal Pain Nausea Specialty Diagnoses / Procedures Referred By Alie johnson Referred To Contact Diagnoses Nausea and vomiting Generalized abdominal pain Dedra Pineda MD [address] [place] [address], [place] [address] [facility] [address] [place] [address] Referral ID Status Reason Start Date Expiration Date Visits Re quested Visits Authorized [id number] 1 1 Reason Comments Follow-up 1 m fu Reason Comments Abdominal Pain Mid upper abd pain o ngoing since around 0600, pt reports it woke her from sleep. She also reports nausea currently, she had two episodes of emesis this AM. Reason Comments Follow-up Er f/up gastroparesi s Reason Comments Abdominal Pain Stabbing mid abdomin al pains with N/V/D starting yesterday. Used her phenergan suppository, zofran, and GI cocktail with little relief. Recent sick contacts. Reason Comments Appointment Reason Comments Follow-up 3 m Abdominal Pain Reason Comments Fever Onset Saturday Generalized Body Aches Onset Saturday Reason Comments Vomiting N/V, sharp/stabbing abd pains, and constipations x1 week. Was seen at [facility] on Saturday for her gastroparesis. Has taken her home antiemetics with no relief. Reason Comments Abdominal Pain Patient with complai nt of ongoing gastroparesis pain, tonight pain worsening Specialty Diagnoses / Procedures Referred By Alie johnson Referred To Contact Diagnoses Intractable abdominal pain Acute pancreatitis, unspecified complication status, unspecified pancreatitis type Wilman Figueroa MD [address] [place] [address] [facility] [address] [place] [address] Referral ID Status Reason Start Date Expiration Date Visits Re quested Visits Authorized [id number] 1 1 Reason Comments Gastroparesis Reason Comments electrogastrogram 350 cc water intake Reason Comments Medication Preauthorization PA for Gimot i Reason Comments EGG RESULTS Reason Comments Gastroparesis Reason Comments Care Coordination Schedule procedure a nd follow up appt Reason Comments Anesthesia Consult Reason Comments Abdominal Pain Patient states nelson roparesis pain. Patient takes compazine and Reglan. Patient also states she was exposed to the flu. Reason Onset Date Comments Med Refill 01/20/2025 Reason Comments Medication Authorization PA for Gimoti ( renewal) Reason Comments Patient Question Patient was in ER to day in hometown states she is in a lot of pain and would like to speak with someone Reason Comments Abdominal Cramping Pt states she has ga stroparesis. Reason Comments Abdominal Pain Pt here for chronic abd pain states she is supposed to see pain management at the end of the month. Reason Comments New Patient pain Specialty Diagnoses / Procedures Referred By Alie johnson Referred To Contact Pain Management Diagnoses Chronic generalized abdominal pain Procedures CONSULT TO PAIN MGT OFFICE/OUTPATIENT [facility] 60 MINUTES Yajaira Lackey DO [facility] [address] [place] [address] Phone: tel: fax: Referral ID Status Reason Start Date Expiration Date V isits Requested Visits Authorized [id number] Closed PCP Requested Referral 02/02/2025 02/02/2026 1 1 Ordered Prescriptions (unrec ognized section and content) [...] 4 times daily 30 tablet 0 02/05/2024 Prescription Sig Dispensed Refills Start Date End Da te prochlorperazine (COMPAZINE) 10 MG tablet Take 1 tablet by mouth every 6 hours as needed (Nausea, vomiting) 28 tablet 05/26/2024 06/02/2024 Prescription Sig Dispensed Refills Start Date End Da te insulin glargine (LANTUS SOLOSTAR) 100 UNIT/ML injection pen Inject 30 Units into the skin nightly 15 mL 07/08/2024 Prescription Sig Dispensed Refills Start Date End Da te Baloxavir Marboxil (XOFLUZA, 80 MG DOSE,) 1 x 80 MG tablet Take 1 tablet by mouth once for 1 dose 1 tablet 0 10/14/2023 10/14/2023 Prescription Sig Dispensed Refills Start Date End Da te traMADol (ULTRAM) 50 MG tabletIndications:Acute pancreatitis, unspecified complication status, unspecified pancreatitis type Take 1 tablet by mouth every 6 hours as needed for Pain for up to 3 days. Max Daily Amount: 200 mg 12 tablet 10/21/2024 10/24/2024 insulin glargine (LANTUS SOLOSTAR) 100 UNIT/ML injection pen Inject 25 Units into the skin nightly 15 mL 2 10/21/2024 Scheduled Active and Recently Administ ered Medications (unrecognized section and content) Medication Order 03/18/2021 03/19/2021 03/20/2021 acetaminophen (TYLENOL) tablet 650 mg (COMPLETED) 650 mg, Oral, ONCE, On Mon 21 at 1245, For 1 dose, Maximum dose of acetaminophen is 4000 mg from all sources in 24 hours., Pre-op (day of surgery) 1300 (Given - Provid er: Vandana Avitia, NU) dimenhyDRINATE (DRAMAMINE) tablet 50 mg (COMPLETED) 50 mg, Oral, ONCE, On Sat03/20/21 at 1245, For 1 dose, Pre-op (day of surgery) 1301 (Given - Provid er: Vandana Avitia RN) Continuous Medication Order 03/18/2021 03/19/2021 03/20/2021 lactated ringers infusion Intravenous, at 100 mL/hr, CONTINUOUS, Starting on Sat03/20/21 at 1245, Pre-op (day of surgery) 1300 (New Bag - Prov ider: Vandana Avitia RN)1338 (NoRateChange - Provider: Maryam Encinas DO)1407 (Rate/Dose Change - Provider: Naima Aj APRN - COMMERCIAL REAL ESTATE AGENT)1456 (Stopped - Provider: Aliyah Rangel RN) PRN [...] only 1437 (Given - Provid er: Aliyah Rangel, NU) No Frequency Medication Order 03/18/2021 03/19/2021 03/20/2021 [...] Mild (1-3), Do not crush or chew. 1926 (Given - Provid er: Memo Mccrary RN) [...] ONCE, 1 dose, On 07/08/22 at 1930 1937 (Given - Provid er: Katarzyna Head RN) [...] specifically ordered. 2255 (Given - Provider: Mouna Olmos RN) ondansetron (ZOFRAN) injection 4 mg (COMPLETED) 4 mg, IntraVENous, ONCE, 1 dose, On Emiliana 09/27/22 at 2100 2101 (Given - Provider: Christy Tafoya RN) Scheduled Medication Order 10/03/2022 10/04/2022 10/05/2022 hydrocodone-acetaminophen [...] 100 mL IVPB (COMPLETED) 2,000 mg, IntraVENous, MERCHANDISE DISTRIBUTOR TO O.R., 1 dose, On Sat11/12/22 at [...] mL/lumen, PACU only Scheduled Medication Order 02/16/2023 02/17/2023 02/18/2023 0.9 % sodium chloride bolus (COMPLETED) 2,000 mL, IntraVENous, at 991.7 mL/hr, Administer over 121 Minutes, ONCE, On 02/18/23 at 1915, For 1 dose 1915 (New Bag - Prov ider: Katarzyna Head RN)2203 (Stopped - Provider: Katarzyna Head RN) dicyclomine (BENTYL) injection 20 mg (COMPLETED) 20 mg, IntraMUSCular, ONCE, 1 dose, On 02/18/23 at 2045 2052 (Given - Provid er: Katarzyna Head RN) ondansetron (ZOFRAN) injection 4 mg (COMPLETED) 4 mg, IntraVENous, ONCE, 1 dose, On 02/18/23 at 1915 191 (Given - Provid er: [...] IntraMUSCular, ONCE, 1 dose, On 11/23/23 at 6359 6592 (Given - Provider: Navi Lockwood RN) HYDROcodone-acetaminophen (NORCO) 5-325 MG per tablet 1 tablet (COMPLETED) 1 tablet, Oral, ONCE, 1 dose, On 11/23/23 at 214, Maximum dose of acetaminophen is 4000 mg [...] Discontinued, Other 2237 (Given - Provider: Isidra Gomez Shock) Scheduled Medication Order 01/02/2024 01/03/2024 01/04/2024 famotidine [...] 2045 (New Bag - Prov ider: Mouna Pearson RN)2200 (Stopped - Provider: Navi Lockwood RN) PRN Medication Order 01/28/2024 01/29/2024 01/30/2024 iopamidol (ISOVUE-370) 76 % injection 75 mL (COMPLETED) 75 mL, IntraVENous, IMG ONCE PRN, 1 dose, Starting on Emiliana 01/30/24 at 1836, Until Sat01/30/24 at 1841, Other 1841 (Given - Provid er: Kayla Polanco) Scheduled [...] (Given - Provid er: Kaylie Mercedes RN) Scheduled Medication Order 05/24/2024 05/25/2024 05/26/2024 droPERidol (INAPSINE) injection 0.625 mg (COMPLETED) 0.625 mg, IntraVENous, ONCE, 1 dose, On Sat05/26/24 at 1400 1420 (Given - Provid er: Naomie Polanco RN) ondansetron (ZOFRAN) injection 4 mg (COMPLETED) 4 mg, IntraVENous, ONCE, 1 dose, On Sat05/26/24 at 1215 1238 (Given - Provid er: Naomie Polanco RN) sodium chloride 0.9 % bolus 1,000 mL (COMPLETED) 1,000 mL, IntraVENous, at 495.9 mL/hr, Administer over 121 Minutes, ONCE, On Sat05/26/24 at 1215, For 1 dose 1241 (New Bag - Prov ider: Naoime Polanco RN)1445 (Stopped - Provider: Magali Roldan RN) Scheduled Medication Order 07/06/2024 07/07/2024 07/08/2024 dicyclomine (BENTYL) capsule 10 mg (CANCELED) 10 mg, Oral, 4 TIMES DAILY BEFORE MEALS & NIGHTLY, First dose on Sat07/07/24 at 1700, Until Discontinued 154 (Given - Provider: Kathia Hernandez RN)2056 (Given - Provider: Garima Saini RN) 0713 (Given - Provider: Brooke Elmore, NU) dicyclomine (BENTYL) injection 20 mg (COMPLETED) 20 mg, IntraMUSCular, ONCE, 1 dose, On Sat07/07/24 at 0900 0929 (Given - Provider: Maryann Quiles RN) diphenhydrAMINE (BENADRYL) injection 25 mg (COMPLETED) 25 mg, IntraVENous, ONCE, 1 dose, On Sat07/07/24 at 1015, IV Push at rate not to exceed 25 mg/min. 1015 (Given - Provider: Maryann Quiles RN) FLUoxetine (PROZAC) capsule 10 mg 10 mg, Oral, DAILY, First dose on Sat07/07/24 at 1515, Until Discontinued 154 (Given - Provider: Kathia Hernandez RN) 09 (Given - Provider: Brooke Elmore RN) insulin lispro (HUMALOG,ADMELOG) injection vial 0-4 Units 0-4 Units, SubCUTAneous, 4 TIMES DAILY BEFORE MEALS & NIGHTLY, First dose on Sat07/07/24 at 1700, Until Discontinued, Corrective Low Dose Algorithm Glucose: Dose: 70-179 No Insulin 180-249 1 Unit 250-299 2 Units 300-349 3 Units Over 349 4 Units and notify physician Administer as soon as possible within 60 minutes of last blood glucose check 1709 (Not Given - Provider: Kathia Hernandez RN - Reason: Order parameters not met - Comment: FSBS [phone] (Not Given - Provider: Garima Saini RN - Reason: Order parameters not met) 0737 (Not Given - Provider: Brooke Elmore RN - Reason: Patient/family refused - Comment: FSBS [phone] (Given - Provider: Brooke Elmore RN)1700 (Due)2100 (Due) metoclopramide (REGLAN) injection 10 mg (COMPLETED) 10 mg, IntraVENous, ONCE, 1 dose, On Sat07/07/24 at 1115, IV Push: Max 10 mg over 1-2 minutes. 1117 (Given - Provider: Maryann Quiles RN) metoclopramide (REGLAN) tablet 10 mg 10 mg, Oral, 4 TIMES DAILY, First dose on Sat07/07/24 at 1700, Until Discontinued 1542 (Given - Provider: Kathia Hernandez RN)2056 (Given - Provider: Garima Saini RN) 0923 (Given - Provider: Brooke Elmore RN)1242 (Given - Provider: Brooke Elmore RN)1700 (Due)2100 (Due) morphine injection 4 mg (COMPLETED) 4 mg, IntraVENous, ONCE, 1 dose, On Sat07/07/24 at 1100 1123 (Given - Provider: Maryann Quiles RN) morphine injection 4 mg (COMPLETED) 4 mg, IntraVENous, ONCE, 1 dose, On Sat07/07/24 at 1315 1413 (Given - Provider: Maryann Quiles RN) ondansetron (ZOFRAN) injection 4 mg (COMPLETED) 4 mg, IntraVENous, ONCE, 1 dose, On Sat07/07/24 at 0900 0928 (Given - Provider: Maryann Quiles RN) pantoprazole (PROTONIX) tablet 20 mg 20 mg, Oral, DAILY, First dose on Sat07/07/24 at 1515, Until Discontinued, Do not crush or break. 1542 (Given - Provider: Kathia Hernandez RN) 0713 (Given - Provider: Brooke Elmore RN) prochlorperazine (COMPAZINE) injection 10 mg (COMPLETED) 10 mg, IntraVENous, ONCE, 1 dose, On Sat07/07/24 at 1015, If administering IV push, administer at a maximum rate of 5 mg/minute. Patients should remain lying down following administration and be reassessed for relief of nausea and presence of hypotension. Patients should be assisted the first time they get up after administration. 1019 (Given - Provider: Maryann Quiles RN) sodium chloride flush 0.9 % injection 10 mL 10 mL, IntraVENous, EVERY 12 HOURS SCHEDULED (2 times per day), First dose on Sat07/07/24 at 2100, Until Discontinued 1940 (Not Given - Provider: Garima Saini RN - Reason: IV Fluid Infusing) 0709 (Not Given - Provider: Brooke Elmore RN - Reason: IV Fluid Infusing)2100 (Due) Continuous Medication Order 07/06/2024 07/07/2024 07/08/2024 0.9 % sodium chloride infusion IntraVENous, at 75 mL/hr, CONTINUOUS, Starting on Sat07/07/24 at 1515, For 24 hours, Complete last bag that is running at 24 hours and then saline lock IV 1542 (New Bag - Provider: Kathia Hernandez RN) 1256 (Stopped - Provider: Brooke Elmore RN) PRN Medication Order 07/06/2024 07/07/2024 07/08/2024 0.9 % sodium chloride infusion IntraVENous, at 5-250 mL/hr, PRN, if patient receiving piggyback infusions and maintenance fluids are not ordered OR KVO fluids to protect IV site / prevent frequent line interruptions/ long duration, Starting on Sat07/07/24 at 1446, For piggyback infusion, administer at same rate [...] or less into rate field of order. acetaminophen (TYLENOL) suppository 650 mg(Linked Group 1) 650 mg, Rectal, EVERY 6 HOURS PRN, Starting on Sat07/07/24 at 1446, Until Discontinued, Pain Mild (1-3), Fever, For temp greater than 100.4 F (38 C), Administer if oral route cannot be used. acetaminophen (TYLENOL) tablet 650 mg(Linked Group 1) 650 mg, Oral, EVERY 6 HOURS PRN, Starting on Sat07/07/24 at 1446, Until Discontinued, Pain Mild (1-3), Fever, For temp greater than 100.4 F (38 C), Maximum dose of acetaminophen is 4000 mg from all sources in 24 hours. albuterol sulfate HFA (PROVENTIL;VENTOLIN;PROAIR) 108 (90 Base) MCG/ACT inhaler 2 puff 2 puff, Inhalation, EVERY 6 HOURS PRN, Starting on Sat07/07/24 at 1446, Until Discontinued, Wheezing, Initiate RT Bronchodilator Protocol: Yes - Inpatient Protocol dextrose 10 % infusion IntraVENous, at 100 mL/hr, CONTINUOUS PRN, if blood glucose remains LESS THAN 70 mg/dL after 2 dextrose 10% intravenous boluses or administration of glucagon, Starting on Sat07/07/24 at 1446, If blood glucose fails to stabilize after 2 dextrose 10% intravenous boluses or glucagon administration, start dextrose 10% infusion at 100 mL/hour and repeat blood glucose at 30 and 60 minutes. If blood glucose is GREATER THAN 70 mg/dL after 60 minutes, discontinue dextrose 10% infusion. dextrose bolus 10% 125 mL(Linked Group 2) 125 mL, IntraVENous, at 937.5 mL/hr, Administer over 8 Minutes, PRN, Other, Blood glucose 40 - 69 mg/dL and patient NOT ALERT or NPO, Starting on Sat07/07/24 at 1446, Repeat blood glucose in 15 minutes. If blood glucose remains LESS THAN 70 mg/dL, repeat treatment and recheck blood glucose in 15 minutes x 2. If using glycemic management system, dose as instructed per system. If blood glucose remains LESS THAN 70 mg/dL after 2 intravenous boluses start dextrose 10% at 100 mL/hour and notify provider. dextrose bolus 10% 250 mL(Linked Group 2) 250 mL, IntraVENous, at 937.5 mL/hr, Administer over 16 Minutes, PRN, Other, Blood glucose LESS THAN 40 mg/dL and patient NOT ALERT or NPO, Starting on Sat07/07/24 at 1446, Repeat blood glucose in 15 minutes. If blood glucose remains LESS THAN 70 mg/dL, repeat treatment and recheck blood glucose in 15 minutes x 2. If using glycemic management system, dose as instructed per system. If blood glucose remains LESS THAN 70 mg/dL after 2 intravenous boluses start dextrose 10% at 100 mL/hour and notify provider. glucagon injection 1 mg 1 mg, SubCUTAneous, PRN, Starting on Sat07/07/24 at 1446, Until Discontinued, Low blood sugar, Blood glucose LESS THAN 70 mg/dL and patient NOT ALERT or NPO and does not have IV access., After administration, attempt intravenous access and start dextrose 10% at 100 mL/hr. Repeat blood glucose in 15 minutes x 2 and notify provider. glucose chewable tablet 16 g 16 g (4 tablet), Oral, PRN, Starting on Sat07/07/24 at 1446, Until Discontinued, Low blood sugar, If blood glucose is LESS THAN 70 mg/dL and patient is alert and tolerating oral. Give 4 tablets (16g) Repeat blood glucose in 15 minutes. If blood glucose is LESS THAN 70 mg/dL, repeat treatment and recheck blood glucose in 15 minutes x 2. If blood glucose remains LESS THAN 70 mg/dL, notify provider. hydrOXYzine HCl (ATARAX) tablet 25 mg 25 mg, Oral, EVERY 6 HOURS PRN, Starting on Sat07/07/24 at 1446, Until Discontinued, Anxiety lidocaine 4 % external patch 1 patch 1 patch, TransDERmal, Administer over 12 Hours, DAILY PRN, back pain, Starting on Sat07/07/24 at 1446, Substituted for Lidocaine 5% Patch. ondansetron (ZOFRAN) tablet 4 mg 4 mg, Oral, 3 TIMES DAILY PRN, Starting on Sat07/07/24 at 1446, Until Discontinued, Nausea, Vomiting potassium bicarb-citric acid (EFFER-K) effervescent tablet 40 mEq(Linked Group 3) 40 mEq, Oral, PRN, Starting on Sat07/07/24 at 1446, Until Discontinued, Per Potassium Replacement Protocol, Administer as alternative if patient unable to tolerate oral tablet. K Lab Replacement Action 3.1 to 3.5 40 mEq ORAL x 1 Under 3.1 Refer to IV replacement protocol Recheck K level in AM. Protocol not for use in patients with CrCl less than 30 mL/min. Do not chew or crush. Dissolve flavored tablets completely in 3 to 4 ounces of cold water; unflavored tablets may be dissolved in 3 to 4 ounces of cold juice. Patient to sip slowly over a 5 to 10 minute period. May further dilute if GI adverse effects occur. potassium chloride (KLOR-CON M) extended release tablet 40 mEq(Linked Group 3) 40 mEq, Oral, PRN, Starting on Sat07/07/24 at 1446, Until Discontinued, Potassium Replacement, May give alternative linked oral order (ordered as effervescent, packet, or liquid solution) if patient unable to tolerate tablet. K Lab Replacement Action 3.1 to 3.5 40 mEq ORAL x 1 Under 3.1 Refer to IV replacement protocol Recheck K level in AM. Protocol not for use in patients with CrCl less than 30 mL/min. Do not crush, chew, or suck on tablet. Tablet may also be broken in half and each half swallowed separately. potassium chloride 10 mEq/100 mL IVPB (Peripheral Line)(Linked Group 3) 10 mEq, IntraVENous, PRN, Starting on Sat07/07/24 at 1446, Until Discontinued, at 100 mL/hr, Potassium Replacement, K Lab Replacement Action 2.7 to 3.0 10 mEq IVPB x 6 doses (60 mEq Total) Under 2.7 CALL PROVIDER and administer 10 mEq IVPB x 6 doses (60 mEq Total) Infuse at 10 mEq/hr. Repeat Potassium lab 1 hour after final administration. Protocol not for use in patients with CrCl less than 30 mL/min. prochlorperazine (COMPAZINE) tablet 10 mg 10 mg, Oral, EVERY 6 HOURS PRN, Starting on Sat07/07/24 at 1446, Until Discontinued, nausea 1833 (Given - Provider: Garima Saini RN) sodium chloride flush 0.9 % injection 10 mL 10 mL, IntraVENous, PRN, Starting on Sat07/07/24 at 1446, Until Discontinued, Line Care, After every IV line use Linked Groups Order Group 1: acetaminophen (TYLENOL) tablet 650 mgJump to med 650 mg, Oral, EVERY 6 HOURS PRN, Starting on Sat07/07/24 at 1446, Until Discontinued, Pain Mild (1-3), Fever, For temp greater than 100.4 F (38 C), Maximum dose of acetaminophen is 4000 mg from all sources in 24 hours. Or acetaminophen (TYLENOL) suppository 650 mgJump to med 650 mg, Rectal, EVERY 6 HOURS PRN, Starting on Sat07/07/24 at 1446, Until Discontinued, Pain Mild (1-3), Fever, For temp greater than 100.4 F (38 C), Administer if oral route cannot be used. Group 2: dextrose bolus 10% 125 mLJump to med 125 mL, IntraVENous, at 937.5 mL/hr, Administer over 8 Minutes, PRN, Other, Blood glucose 40 - 69 mg/dL and patient NOT ALERT or NPO, Starting on Sat07/07/24 at 1446, Repeat blood glucose in 15 minutes. If blood glucose remains LESS THAN 70 mg/dL, repeat treatment and recheck blood glucose in 15 minutes x 2. If using glycemic management system, dose as instructed per system. If blood glucose remains LESS THAN 70 mg/dL after 2 intravenous boluses start dextrose 10% at 100 mL/hour and notify provider. Or dextrose bolus 10% 250 mLJump to med 250 mL, IntraVENous, at 937.5 mL/hr, Administer over 16 Minutes, PRN, Other, Blood glucose LESS THAN 40 mg/dL and patient NOT ALERT or NPO, Starting on Sat07/07/24 at 1446, Repeat blood glucose in 15 minutes. If blood glucose remains LESS THAN 70 mg/dL, repeat treatment and recheck blood glucose in 15 minutes x 2. If using glycemic management system, dose as instructed per system. If blood glucose remains LESS THAN 70 mg/dL after 2 intravenous boluses start dextrose 10% at 100 mL/hour and notify provider. Group 3: potassium chloride (KLOR-CON M) extended release tablet 40 mEqJump to med 40 mEq, Oral, PRN, Starting on Sat07/07/24 at 1446, Until Discontinued, Potassium Replacement, May give alternative linked oral order (ordered as effervescent, packet, or liquid solution) if patient unable to tolerate tablet. K Lab Replacement Action 3.1 to 3.5 40 mEq ORAL x 1 Under 3.1 Refer to IV replacement protocol Recheck K level in AM. Protocol not for use in patients with CrCl less than 30 mL/min. Do not crush, chew, or suck on tablet. Tablet may also be broken in half and each half swallowed separately. Or potassium bicarb-citric acid (EFFER-K) effervescent tablet 40 mEqJump to med 40 mEq, Oral, PRN, Starting on Sat07/07/24 at 1446, Until Discontinued, Per Potassium Replacement Protocol, Administer as alternative if patient unable to tolerate oral tablet. K Lab Replacement Action 3.1 to 3.5 40 mEq ORAL x 1 Under 3.1 Refer to IV replacement protocol Recheck K level in AM. Protocol not for use in patients with CrCl less than 30 mL/min. Do not chew or crush. Dissolve flavored tablets completely in 3 to 4 ounces of cold water; unflavored tablets may be dissolved in 3 to 4 ounces of cold juice. Patient to sip slowly over a 5 to 10 minute period. May further dilute if GI adverse effects occur. Or potassium chloride 10 mEq/100 mL IVPB (Peripheral Line)Jump to med 10 mEq, IntraVENous, PRN, Starting on Sat07/07/24 at 1446, Until Discontinued, at 100 mL/hr, Potassium Replacement, K Lab Replacement Action 2.7 to 3.0 10 mEq IVPB x 6 doses (60 mEq Total) Under 2.7 CALL PROVIDER and administer 10 mEq IVPB x 6 doses (60 mEq Total) Infuse at 10 mEq/hr. Repeat Potassium lab 1 hour after final administration. Protocol not for use in patients with CrCl less than 30 mL/min. Scheduled Medication Order 08/04/2024 08/05/2024 08/06/2024 aluminum & magnesium hydroxide-simethicone (MAALOX) 30 mL, lidocaine viscous hcl (XYLOCAINE) 5 mL (GI COCKTAIL) (COMPLETED) Oral, ONCE, On Emiliana 08/06/24 at 1100, For 1 dose, Take 5 mL from lidocaine viscous 2% cup and mix with 30 mL of maalox and then administer. 1111 (Given - Provid er: Magali Ruff RN) diphenhydrAMINE (BENADRYL) capsule 25 mg (COMPLETED) 25 mg, Oral, ONCE, 1 dose, On Emiliana 08/06/24 at 1315 1315 (Given - Provid er: Magali Ruff RN) prochlorperazine (COMPAZINE) tablet 10 mg (COMPLETED) 10 mg, Oral, ONCE, 1 dose, On Emiliana 08/06/24 at 1315 1315 (Given - Provid er: Magali Ruff RN) promethazine (PHENERGAN) injection 25 mg (COMPLETED) 25 mg, IntraMUSCular, ONCE, 1 dose, On Emiliana 08/06/24 at 1100 1111 (Given - Provid er: Magali Ruff RN) Scheduled Medication Order 09/15/2024 09/16/2024 09/17/2024 aluminum & magnesium hydroxide-simethicone (MAALOX) 30 mL, lidocaine viscous hcl (XYLOCAINE) 5 mL (GI COCKTAIL) (COMPLETED) Oral, ONCE, On Emiliana 09/17/24 at 1330, For 1 dose, Take 5 mL from lidocaine viscous 2% cup and mix with 30 mL of maalox and then administer. 1332 (Given - Provid er: Milvia Kendrick RN) diphenhydrAMINE (BENADRYL) injection 25 mg (COMPLETED) 25 mg, IntraVENous, ONCE, 1 dose, On Emiliana 09/17/24 at 1330, IV Push at rate not to exceed 25 mg/min. 1331 (Given - Provid er: Milvia Kendrick RN) droPERidol (INAPSINE) injection 0.625 mg (COMPLETED) 0.625 mg, IntraVENous, ONCE, 1 dose, On Emiliana 09/17/24 at 1430 1422 (Given - Provid er: Milvia Kendrick RN) prochlorperazine (COMPAZINE) injection 10 mg (COMPLETED) 10 mg, IntraVENous, ONCE, 1 dose, On Emiliana 09/17/24 at 1330, If administering IV push, administer at a maximum rate of 5 mg/minute. Patients should remain lying down following administration and be reassessed for relief of nausea and presence of hypotension. Patients should be assisted the first time they get up after administration. 1330 (Given - Provid er: Milvia Kendrick RN) sodium chloride 0.9 % bolus 1,000 mL (COMPLETED) 1,000 mL (9.03 mL/kg), IntraVENous, at 495.9 mL/hr, Administer over 121 Minutes, ONCE, On Emiliana 09/17/24 at 1330, For 1 dose, For adult patients weighing > 55 kg (120 lbs.) and less than <50 years of age initiate 0.9NS at 500 mL/ hr. All bolus orders are to be given over 10 to 15 minutes 1330 (New Bag - Prov ider: Milvia Kendrick RN)1529 (Stopped - Provider: Christy Tafoya RN) Scheduled Medication Order 10/12/2023 10/13/2023 10/14/2023 acetaminophen (TYLENOL) tablet 1,000 mg (COMPLETED) 1,000 mg, Oral, ONCE, 1 dose, On Sat10/14/23 at 0845, Maximum dose of acetaminophen is 4000 mg from all sources in 24 hours. 0855 (Given - Provid er: Nazia Capellan RN) ibuprofen (ADVIL;MOTRIN) tablet 800 mg (COMPLETED) 800 mg, Oral, ONCE, 1 dose, On Sat10/14/23 at 0845 0855 (Given - Provid er: Nazia Capellan RN) Scheduled Medication Order 10/19/2024 10/20/2024 10/21/2024 diphenhydrAMINE (BENADRYL) injection 25 mg (COMPLETED) 25 mg, IntraVENous, ONCE, 1 dose, On Sat10/20/24 at 0945, IV Push at rate not to exceed 25 mg/min. 0936 (Given - Provider: Christy Tafoya RN) enoxaparin Sodium (LOVENOX) injection 30 mg 30 mg, SubCUTAneous, 2 TIMES DAILY, First dose on Sat10/20/24 at 2100, Until Discontinued, Indication of Use: Prophylaxis-DVT/PE 2007 (Given - Provider: Garima Sorenson RN) 0847 (Given - Provider: Rimma Montesinos, NU)2100 (Due) FLUoxetine (PROZAC) capsule 10 mg 10 mg, Oral, DAILY, First dose on Sat10/20/24 at 1600, Until Discontinued 1558 (Given - Provider: Michaelle Quintana RN) 0847 (Given - Provider: Rimma Montesinos, NU) glipiZIDE (GLUCOTROL) tablet 20 mg 20 mg, Oral, 2 TIMES DAILY BEFORE MEALS, First dose on Sat10/20/24 at 1600, Until Discontinued, On hold since Sat10/20/2024 at 1533 until manually unheld 1533 (Held by provider - Provider: Aissatou Salcedo, OSMAR - CHIEF MINISTER - Reason: Other)1600 (Automatically Held) 0700 (Automatically Held)1600 (Automatically Held) HYDROmorphone HCl PF (DILAUDID) injection 1 mg (COMPLETED) 1 mg, IntraVENous, ONCE, 1 dose, On Sat10/20/24 at 1115 1125 (Given - Provider: Christy Tafoya RN) HYDROmorphone HCl PF (DILAUDID) injection 1 mg (COMPLETED) 1 mg, IntraVENous, ONCE, 1 dose, On Sat10/20/24 at 1500 1451 (Given - Provider: Milvia Kendrick RN) insulin glargine (LANTUS) injection vial 25 Units 25 Units, SubCUTAneous, NIGHTLY, First dose on Sat10/20/24 at 2100, Until Discontinued, On hold since Sat10/20/2024 at 1533 until manually unheld 1532 (Held by provider - Provider: Aissatou Salcedo APRN [facility] - Reason: Other)2100 (Automatically Held) 2100 (Automatically Held) lidocaine 4 % external patch 1 patch 1 patch, Topical, Administer over 12 Hours, DAILY, First dose on Sat10/20/24 at 1600, Substituted for Lidocaine 5% Patch. The research and development researcher's recommendations for the number of patches that can be applied within a 24-hour period varies from 1 to 4 times daily and the duration of application varies from 8 to 24 hours; refer to the research and development researcher's labeling for product-specific recommendations. 1558 (Patch Applied - Provider: Michaelle Quintana RN) 0445 (Patch Removed - Provider: Garima Sorenson RN)0847 (Patch Applied - Provider: Rimma Montesinos RN)2046 (Due: Patch Removed - Provider: Rimma Montesinos RN) metoclopramide (REGLAN) tablet 10 mg 10 mg, Oral, 4 TIMES DAILY, First dose on Sat10/20/24 at 1700, Until Discontinued 1558 (Given - Provider: Michaelle Quintana RN)2007 (Given - Provider: Garima Sorenson RN) 0847 (Given - Provider: Rimma Montesinos RN)1300 (Due)1700 (Due)2100 (Due) morphine injection 4 mg (COMPLETED) 4 mg, IntraVENous, ONCE, 1 dose, On Sat10/20/24 at 1015 1010 (Given - Provider: Christy Tafoya RN) morphine injection 4 mg (COMPLETED) 4 mg, IntraVENous, ONCE, 1 dose, On Sat10/20/24 at 1030 1042 (Given - Provider: Christy Tafoya RN) ondansetron (ZOFRAN) injection 4 mg (COMPLETED) 4 mg, IntraVENous, ONCE, 1 dose, On Sat10/20/24 at 1015 1010 (Given - Provider: Christy Tafoya RN) ondansetron (ZOFRAN-ODT) disintegrating tablet 4 mg (COMPLETED) 4 mg, Oral, ONCE, 1 dose, On Sat10/20/24 at 1300 1300 (Given - Provider: Christy Tafoya RN) oxyCODONE-acetaminophen (PERCOCET) 5-325 MG per tablet 1 tablet (COMPLETED) 1 tablet, Oral, ONCE, 1 dose, On Sat10/20/24 at 1200, Maximum dose of acetaminophen is 4000 mg from all sources in 24 hours. 1152 (Given - Provider: Christy Tafoya RN) pantoprazole (PROTONIX) tablet 20 mg 20 mg, Oral, DAILY, First dose on Sat10/21/24 at 0900, Until Discontinued, Do not crush or break. 0847 (Given - Provid er: Rimma Montesinos RN) prochlorperazine (COMPAZINE) injection 10 mg (COMPLETED) 10 mg, IntraVENous, ONCE, 1 dose, On Sat10/20/24 at 0945, If administering IV push, administer at a maximum rate of 5 mg/minute. Patients should remain lying down following administration and be reassessed for relief of nausea and presence of hypotension. Patients should be assisted the first time they get up after administration. 0936 (Given - Provider: Christy Tafoya RN) sodium chloride 0.9 % bolus 1,000 mL (COMPLETED) 1,000 mL (9.18 mL/kg), IntraVENous, at 1,000 mL/hr, Administer over 1 Hours, ONCE, On Sat10/20/24 at 0930, For 1 dose 0936 (New Bag - Provider: Christy Tafoya RN)1036 (Stopped - Provider: Christy Tafoya RN) sodium chloride 0.9 % bolus 1,000 mL 1,000 mL (9.18 mL/kg), IntraVENous, at 1,000 mL/hr, Administer over 1 Hours, ONCE, On Sat10/20/24 at 1100, For 1 dose 1647 (Canceled Entry - Provider: Michaelle Quintana RN) sodium chloride flush 0.9 % injection 10 mL 10 mL, IntraVENous, EVERY 12 HOURS SCHEDULED (2 times per day), First dose on Sat10/20/24 at 2100, Until Discontinued 2015 (Not Given - Provider: Garima Sorenson RN - Reason: IV Fluid Infusing) 0853 (Not Given - Provider: Rimma Montesinos RN - Reason: IV Fluid Infusing)2100 (Due) Continuous Medication Order 10/19/2024 10/20/2024 10/21/2024 0.9 % sodium chloride infusion IntraVENous, at 150 mL/hr, CONTINUOUS, Starting on Sat10/20/24 at 1600, For 24 hours, Complete last bag that is running at 24 hours and then saline lock IV 1559 (New Bag - Provider: Michaelle Quintana RN)2251 (New Bag - Provider: Garima Sorenson RN) 0544 (New Bag - Provider: Garima Sorenson, NU)1114 (Stopped - Provider: Rimma Montesinos RN) PRN Medication Order 10/19/2024 10/20/2024 10/21/2024 0.9 % sodium chloride infusion IntraVENous, at 5-250 mL/hr, PRN, if patient receiving piggyback infusions and maintenance fluids are not ordered OR KVO fluids to protect IV site / prevent frequent line interruptions/ long duration, Starting on Sat10/20/24 at 1533, For piggyback infusion, administer at same rate [...] or less into rate field of order. albuterol sulfate HFA (PROVENTIL;VENTOLIN;PROAIR) 108 (90 Base) MCG/ACT inhaler 2 puff 2 puff, Inhalation, EVERY 6 HOURS PRN, Starting on Sat10/20/24 at 1533, Until Discontinued, Wheezing, Initiate RT Bronchodilator Protocol: Yes - Inpatient Protocol dextrose 10 % infusion IntraVENous, at 100 mL/hr, CONTINUOUS PRN, if blood glucose remains LESS THAN 70 mg/dL after 2 dextrose 10% intravenous boluses or administration of glucagon, Starting on Sat10/20/24 at 1533, If blood glucose fails to stabilize after 2 dextrose 10% intravenous boluses or glucagon administration, start dextrose 10% infusion at 100 mL/hour and repeat blood glucose at 30 and 60 minutes. If blood glucose is GREATER THAN 70 mg/dL after 60 minutes, discontinue dextrose 10% infusion. dextrose bolus 10% 125 mL(Linked Group 1) 125 mL, IntraVENous, at 937.5 mL/hr, Administer over 8 Minutes, PRN, Other, Blood glucose 40 - 69 mg/dL and patient NOT ALERT or NPO, Starting on Sat10/20/24 at 1533, Repeat blood glucose in 15 minutes. If blood glucose remains LESS THAN 70 mg/dL, repeat treatment and recheck blood glucose in 15 minutes x 2. If using glycemic management system, dose as instructed per system. If blood glucose remains LESS THAN 70 mg/dL after 2 intravenous boluses start dextrose 10% at 100 mL/hour and notify provider. dextrose bolus 10% 250 mL(Linked Group 1) 250 mL, IntraVENous, at 937.5 mL/hr, Administer over 16 Minutes, PRN, Other, Blood glucose LESS THAN 40 mg/dL and patient NOT ALERT or NPO, Starting on Sat10/20/24 at 1533, Repeat blood glucose in 15 minutes. If blood glucose remains LESS THAN 70 mg/dL, repeat treatment and recheck blood glucose in 15 minutes x 2. If using glycemic management system, dose as instructed per system. If blood glucose remains LESS THAN 70 mg/dL after 2 intravenous boluses start dextrose 10% at 100 mL/hour and notify provider. glucagon injection 1 mg 1 mg, SubCUTAneous, PRN, Starting on Sat10/20/24 at 1533, Until Discontinued, Low blood sugar, Blood glucose LESS THAN 70 mg/dL and patient NOT ALERT or NPO and does not have IV access., After administration, attempt intravenous access and start dextrose 10% at 100 mL/hr. Repeat blood glucose in 15 minutes x 2 and notify provider. Reconstitute powder for injection by adding 1 mL of research and development researcher-supplied sterile diluent or sterile water for injection to a vial containing 1 mg of the drug, to provide solutions containing 1 mg/mL. Shake vial gently to dissolve. glucose chewable tablet 16 g 16 g (4 tablet), Oral, PRN, Starting on Sat10/20/24 at 1533, Until Discontinued, Low blood sugar, If blood glucose is LESS THAN 70 mg/dL and patient is alert and tolerating oral. Give 4 tablets (16g) Repeat blood glucose in 15 minutes. If blood glucose is LESS THAN 70 mg/dL, repeat treatment and recheck blood glucose in 15 minutes x 2. If blood glucose remains LESS THAN 70 mg/dL, notify provider. hydrOXYzine HCl (ATARAX) tablet 25 mg 25 mg, Oral, EVERY 6 HOURS PRN, Starting on Sat10/20/24 at 1533, Until Discontinued, Itching 1558 (Given - Provider: Michaelle Quintana RN) morphine (PF) injection 2 mg (CANCELED)(Linked Group 2) 2 mg, IntraVENous, EVERY 3 HOURS PRN, Starting on Sat10/20/24 at 1533, Until Sat10/21/24 at 0710, Pain Moderate (4-6), If oral and IV narcotics ordered, use oral first and only use IV if oral is ineffective or cannot take oral. Do Not give oral and IV within 1 hour of each other unless specifically ordered. 1715 (Given - Provider: Gael Chase RN)2007 (Given - Provider: Garima Sorenson RN)2309 (See Alternative - Provider: Garima Sorenson RN) 0548 (See Alternative - Provider: Garima Sorenson RN) morphine injection 4 mg (CANCELED)(Linked Group 2) 4 mg, IntraVENous, EVERY 3 HOURS PRN, Starting on Sat10/20/24 at 1533, Until Sat10/21/24 at 0710, Pain Severe (7-10), If oral and IV narcotics ordered, use oral first and only use IV if oral is ineffective or cannot take oral. Do Not give oral and IV within 1 hour of each other unless specifically ordered. 1715 (See Alternative - Provider: Gael Chase RN)2007 (See Alternative - Provider: Garima Sorenson RN)2309 (Given - Provider: Garima Sorenson RN) 0548 (Given - Provider: Garima Sorenson RN) ondansetron (ZOFRAN) injection 4 mg(Linked Group 3) 4 mg, IntraVENous, EVERY 6 HOURS PRN, Starting on Sat10/20/24 at 1533, Until Discontinued, Nausea, Vomiting, Administer if oral route cannot be used. 0548 (See Alternativ e - Provider: Garima Sorenson RN) ondansetron (ZOFRAN) tablet 4 mg 4 mg, Oral, 3 TIMES DAILY PRN, Starting on Sat10/20/24 at 1533, Until Discontinued, Nausea, Vomiting ondansetron (ZOFRAN-ODT) disintegrating tablet 4 mg(Linked Group 3) 4 mg, Oral, EVERY 8 HOURS PRN, Starting on Sat10/20/24 at 1533, Until Discontinued, Nausea, Vomiting 0548 (Given - Provid er: Garima Sorenson RN) potassium bicarb-citric acid (EFFER-K) effervescent tablet 40 mEq(Linked Group 4) 40 mEq, Oral, PRN, Starting on Sat10/20/24 at 1533, Until Discontinued, Per Potassium Replacement Protocol, Administer as alternative if patient unable to tolerate oral tablet. K Lab Replacement Action 3.1 to 3.5 40 mEq ORAL x 1 Under 3.1 Refer to IV replacement protocol Recheck K level in AM. Protocol not for use in patients with CrCl less than 30 mL/min. Do not chew or crush. Dissolve flavored tablets completely in 3 to 4 ounces of cold water; unflavored tablets may be dissolved in 3 to 4 ounces of cold juice. Patient to sip slowly over a 5 to 10 minute period. May further dilute if GI adverse effects occur. potassium chloride (KLOR-CON M) extended release tablet 40 mEq(Linked Group 4) 40 mEq, Oral, PRN, Starting on Sat10/20/24 at 1533, Until Discontinued, Potassium Replacement, May give alternative linked oral order (ordered as effervescent, packet, or liquid solution) if patient unable to tolerate tablet. K Lab Replacement Action 3.1 to 3.5 40 mEq ORAL x 1 Under 3.1 Refer to IV replacement protocol Recheck K level in AM. Protocol not for use in patients with CrCl less than 30 mL/min. Do not crush, chew, or suck on tablet. Tablet may also be broken in half and each half swallowed separately. potassium chloride 10 mEq/100 mL IVPB (Peripheral Line)(Linked Group 4) 10 mEq, IntraVENous, PRN, Starting on Sat10/20/24 at 1533, Until Discontinued, at 100 mL/hr, Potassium Replacement, K Lab Replacement Action 2.7 to 3.0 10 mEq IVPB x 6 doses (60 mEq Total) Under 2.7 CALL PROVIDER and administer 10 mEq IVPB x 6 doses (60 mEq Total) Infuse at 10 mEq/hr. Repeat Potassium lab 1 hour after final administration. Protocol not for use in patients with CrCl less than 30 mL/min. prochlorperazine (COMPAZINE) tablet 10 mg 10 mg, Oral, EVERY 6 HOURS PRN, Starting on Sat10/20/24 at 1533, Until Discontinued, nausea 2007 (Given - Provider: Garima Sorenson RN) sodium chloride flush 0.9 % injection 10 mL 10 mL, IntraVENous, PRN, Starting on Sat10/20/24 at 1533, Until Discontinued, Line Care, After every IV line use traMADol (ULTRAM) tablet 50 mg 50 mg, Oral, EVERY 6 HOURS PRN, Starting on Sat10/21/24 at 0859, Until Discontinued, Pain Severe (7-10) 1021 (Given - Provid er: Rimma Montesinos RN) Linked Groups Order Group 1: dextrose bolus 10% 125 mLJump to med 125 mL, IntraVENous, at 937.5 mL/hr, Administer over 8 Minutes, PRN, Other, Blood glucose 40 - 69 mg/dL and patient NOT ALERT or NPO, Starting on Sat10/20/24 at 1533, Repeat blood glucose in 15 minutes. If blood glucose remains LESS THAN 70 mg/dL, repeat treatment and recheck blood glucose in 15 minutes x 2. If using glycemic management system, dose as instructed per system. If blood glucose remains LESS THAN 70 mg/dL after 2 intravenous boluses start dextrose 10% at 100 mL/hour and notify provider. Or dextrose bolus 10% 250 mLJump to med 250 mL, IntraVENous, at 937.5 mL/hr, Administer over 16 Minutes, PRN, Other, Blood glucose LESS THAN 40 mg/dL and patient NOT ALERT or NPO, Starting on Sat10/20/24 at 1533, Repeat blood glucose in 15 minutes. If blood glucose remains LESS THAN 70 mg/dL, repeat treatment and recheck blood glucose in 15 minutes x 2. If using glycemic management system, dose as instructed per system. If blood glucose remains LESS THAN 70 mg/dL after 2 intravenous boluses start dextrose 10% at 100 mL/hour and notify provider. Group 2: morphine (PF) injection 2 mg (CANCELED)Jump to med 2 mg, IntraVENous, EVERY 3 HOURS PRN, Starting on Sat10/20/24 at 1533, Until Sat10/21/24 at 0710, Pain Moderate (4-6), If oral and IV narcotics ordered, use oral first and only use IV if oral is ineffective or cannot take oral. Do Not give oral and IV within 1 hour of each other unless specifically ordered. Or morphine injection 4 mg (CANCELED)Jump to med 4 mg, IntraVENous, EVERY 3 HOURS PRN, Starting on Sat10/20/24 at 1533, Until Sat10/21/24 at 0710, Pain Severe (7-10), If oral and IV narcotics ordered, use oral first and only use IV if oral is ineffective or cannot take oral. Do Not give oral and IV within 1 hour of each other unless specifically ordered. Group 3: ondansetron (ZOFRAN-ODT) disintegrating tablet 4 mgJump to med 4 mg, Oral, EVERY 8 HOURS PRN, Starting on Sat10/20/24 at 1533, Until Discontinued, Nausea, Vomiting Or ondansetron (ZOFRAN) injection 4 mgJump to med 4 mg, IntraVENous, EVERY 6 HOURS PRN, Starting on Sat10/20/24 at 1533, Until Discontinued, Nausea, Vomiting, Administer if oral route cannot be used. Group 4: potassium chloride (KLOR-CON M) extended release tablet 40 mEqJump to med 40 mEq, Oral, PRN, Starting on Sat10/20/24 at 1533, Until Discontinued, Potassium Replacement, May give alternative linked oral order (ordered as effervescent, packet, or liquid solution) if patient unable to tolerate tablet. K Lab Replacement Action 3.1 to 3.5 40 mEq ORAL x 1 Under 3.1 Refer to IV replacement protocol Recheck K level in AM. Protocol not for use in patients with CrCl less than 30 mL/min. Do not crush, chew, or suck on tablet. Tablet may also be broken in half and each half swallowed separately. Or potassium bicarb-citric acid (EFFER-K) effervescent tablet 40 mEqJump to med 40 mEq, Oral, PRN, Starting on Sat10/20/24 at 1533, Until Discontinued, Per Potassium Replacement Protocol, Administer as alternative if patient unable to tolerate oral tablet. K Lab Replacement Action 3.1 to 3.5 40 mEq ORAL x 1 Under 3.1 Refer to IV replacement protocol Recheck K level in AM. Protocol not for use in patients with CrCl less than 30 mL/min. Do not chew or crush. Dissolve flavored tablets completely in 3 to 4 ounces of cold water; unflavored tablets may be dissolved in 3 to 4 ounces of cold juice. Patient to sip slowly over a 5 to 10 minute period. May further dilute if GI adverse effects occur. Or potassium chloride 10 mEq/100 mL IVPB (Peripheral Line)Jump to med 10 mEq, IntraVENous, PRN, Starting on Sat10/20/24 at 1533, Until Discontinued, at 100 mL/hr, Potassium Replacement, K Lab Replacement Action 2.7 to 3.0 10 mEq IVPB x 6 doses (60 mEq Total) Under 2.7 CALL PROVIDER and administer 10 mEq IVPB x 6 doses (60 mEq Total) Infuse at 10 mEq/hr. Repeat Potassium lab 1 hour after final administration. Protocol not for use in patients with CrCl less than 30 mL/min. Scheduled Medication Order 11/04/2024 11/05/2024 11/06/2024 diphenhydrAMINE (BENADRYL) injection 12.5 mg (COMPLETED) 12.5 mg, IntraVENous, ONCE, 1 dose, On Emiliana 11/05/24 at 1430, IV Push at rate not to exceed 25 mg/min. 1412 (Given - Provider: Aliyah Webster RN) diphenhydrAMINE (BENADRYL) injection 25 mg (COMPLETED) 25 mg, IntraVENous, ONCE, 1 dose, On Emiliana 11/05/24 at 0015 0006 (Given - Provider: Ana Evans RN) diphenhydrAMINE (BENADRYL) injection 50 mg (COMPLETED) 50 mg, IntraVENous, ONCE, 1 dose, On Sat11/04/24 at 2200 2209 (Given - Provider: Ana Evans RN) famotidine (PEPCID) tablet 20 mg 20 mg, Oral, 2 TIMES DAILY, First dose on Sat11/05/24 at 0900, Until Discontinued 0710 (Held - Provider: Aliyah Webster RN - Reason: Pt NPO)214 (Given - Provider: Josephine Payton RN) 0854 (Given - Provider: Kathia Hernandez RN)2099 (Due) FLUoxetine (PROZAC) capsule 10 mg 10 mg, Oral, Nightly, First dose on Sat11/05/24 at 0300, Until Discontinued 0243 (Not Given - Provider: Anne Hargrove RN - Reason: Patient took at home)2148 (Given - Provider: Josephine Payton RN) 2099 (Due) glipiZIDE (GLUCOTROL) tablet 20 mg 20 mg, Oral, 2 TIMES DAILY BEFORE MEALS, First dose on Sat11/05/24 at 0700, Until Discontinued 07 (Held - Provider: Aliyah Webster RN - Reason: Pt NPO)1523 (Given - Provider: Aliyah Webster RN) 0854 (Given - Provider: Kathia Hernandez RN)1600 (Due) HYDROmorphone HCl PF (DILAUDID) injection 1 mg (COMPLETED) 1 mg, IntraVENous, ONCE, 1 dose, On Sat11/04/24 at 2300 2306 (Given - Provider: Ana Evans RN) HYDROmorphone HCl PF (DILAUDID) injection 1 mg (COMPLETED) 1 mg, IntraVENous, ONCE, 1 dose, On Sat11/05/24 at 0030 0031 (Given - Provider: Ana Evans RN) HYDROmorphone HCl PF (DILAUDID) injection 1 mg (COMPLETED) 1 mg, IntraVENous, ONCE, 1 dose, On Sat11/05/24 at 0200 0158 (Given - Provider: Ana Evans RN) insulin glargine (LANTUS) injection vial 25 Units 25 Units, SubCUTAneous, NIGHTLY, First dose on Sat11/05/24 at 2100, Until Discontinued 2148 (Given - Provider: Josephine Payton RN) 2100 (Due) morphine injection 4 mg (COMPLETED) 4 mg, IntraVENous, ONCE, 1 dose, On Sat11/04/24 at 2200 220 (Given - Provider: Ana Evans RN) ondansetron (ZOFRAN) injection 4 mg (COMPLETED) 4 mg, IntraVENous, ONCE, 1 dose, On Emiliana 11/05/24 at 0215 0205 (Given - Provider: Ana Evans RN) prochlorperazine (COMPAZINE) injection 10 mg (COMPLETED) 10 mg, IntraVENous, ONCE, 1 dose, On Sat11/04/24 at 2200, If administering IV push, administer at a maximum rate of 5 mg/minute. Patients should remain lying down following administration and be reassessed for relief of nausea and presence of hypotension. Patients should be assisted the first time they get up after administration. 2208 (Given - Provider: Ana Evans RN) sodium chloride 0.9 % bolus 1,000 mL (COMPLETED) 1,000 mL, IntraVENous, at 1,000 mL/hr, Administer over 1 Hours, ONCE, On Sat11/04/24 at 2200, For 1 dose 2205 (New Bag - Provider: Ana Evans RN) 0005 (Stopped - Provider: Ana Evans RN) sodium chloride flush 0.9 % injection 10 mL 10 mL, IntraVENous, EVERY 12 HOURS SCHEDULED (2 times per day), First dose on Emiliana 11/05/24 at 0900, Until Discontinued 0710 (Not Given - Provider: Aliyah Webster RN - Reason: IV Fluid Infusing)2150 (Given - Provider: Josephine Payton RN) 0857 (Given - Provider: Kathia Hernandez RN)2100 (Due) Continuous Medication Order 11/04/2024 11/05/2024 11/06/2024 0.9 % sodium chloride infusion IntraVENous, at 100 mL/hr, CONTINUOUS, Starting on Emiliana 11/05/24 at 0300, For 24 hours, Complete last bag that is running at 24 hours and then saline lock IV 0246 (New Bag - Provider: Anne Hargrove RN)0246 (Rate/Dose Verify - Provider: Josephine Payton RN)1239 (Stopped - Provider: Josephine Payton RN)1241 (Stopped - Provider: Josephine Little, RN)1241 (New Bag - Provider: Chapin Whitaker RN)2105 (Paused - Provider: Josephine Payton RN)2146 (Restarted - Provider: Josephine Payton, RN)233 (Rate/Dose Verify - Provider: Josephine Payton RN)233 (Stopped - Provider: Josephine Payton RN) PRN Medication Order 11/04/2024 11/05/2024 11/06/2024 0.9 % sodium chloride infusion IntraVENous, at 5-250 mL/hr, PRN, if patient receiving piggyback infusions and maintenance fluids are not ordered OR KVO fluids to protect IV site / prevent frequent line interruptions/ long duration, Starting on Emiliana 11/05/24 at 0235, For piggyback infusion, administer at same rate [...] or less into rate field of order. acetaminophen (TYLENOL) suppository 650 mg(Linked Group 1) 650 mg, Rectal, EVERY 6 HOURS PRN, Starting on Emiliana 11/05/24 at 0235, Until Discontinued, Pain Mild (1-3), Fever, For temp greater than 100.4 F (38 C), Administer if oral route cannot be used. acetaminophen (TYLENOL) tablet 650 mg(Linked Group 1) 650 mg, Oral, EVERY 6 HOURS PRN, Starting on Emiliana 11/05/24 at 0235, Until Discontinued, Pain Mild (1-3), Fever, For temp greater than 100.4 F (38 C), Maximum dose of acetaminophen is 4000 mg from all sources in 24 hours. albuterol sulfate HFA (PROVENTIL;VENTOLIN;PROAIR) 108 (90 Base) MCG/ACT inhaler 2 puff 2 puff, Inhalation, EVERY 6 HOURS PRN, Starting on Emiliana 11/05/24 at 0235, Until Discontinued, Wheezing, Initiate RT Bronchodilator Protocol: Yes - Inpatient Protocol iopamidol (ISOVUE-370) 76 % injection 75 mL (COMPLETED) 75 mL, IntraVENous, IMG ONCE PRN, 1 dose, Starting on Sat11/04/24 at 2343, Until Sat11/04/24 at 2351, Other 2351 (Given - Provider: Cortez Wilks) morphine (PF) injection 2 mg (CANCELED)(Linked Group 2) 2 mg, IntraVENous, EVERY 2 HOURS PRN, Starting on Emiliana 11/05/24 at 0235, Until Sat11/06/24 at 0635, Pain Moderate (4-6), If oral and IV narcotics ordered, use oral first and only use IV if oral is ineffective or cannot take oral. Do Not give oral and IV within 1 hour of each other unless specifically ordered. 0555 (See Alternative - Provider: Anne Hargrove RN)0951 (See Alternative - Provider: Aliyah Webster RN)1300 (Given - Provider: Aliyah Webster RN)1524 (See Alternative - Provider: Aliyah Webster RN)1828 (See Alternative - Provider: Josephine Payton RN)2340 (Given - Provider: Josephine Payton RN) morphine injection 4 mg (CANCELED)(Linked Group 2) 4 mg, IntraVENous, EVERY 2 HOURS PRN, Starting on Emiliana 11/05/24 at 0235, Until Sat11/06/24 at 0635, Pain Severe (7-10), If oral and IV narcotics ordered, use oral first and only use IV if oral is ineffective or cannot take oral. Do Not give oral and IV within 1 hour of each other unless specifically ordered. 0555 (Given - Provider: Anne Hargrove RN)0951 (Given - Provider: Aliyah Webster RN)1300 (See Alternative - Provider: Aliyah Webster RN)1524 (Given - Provider: Aliyah Webster RN)1828 (Given - Provider: Josephine Payton RN)2340 (See Alternative - Provider: Josephine Payton RN) ondansetron (ZOFRAN) injection 4 mg(Linked Group 3) 4 mg, IntraVENous, EVERY 6 HOURS PRN, Starting on Emiliana 11/05/24 at 0235, Until Discontinued, Nausea, Vomiting, Administer if oral route cannot be used. 0952 (Given - Provider: Aliyah Webster RN)2159 (Given - Provider: Josephine Payton, NU) ondansetron (ZOFRAN-ODT) disintegrating tablet 4 mg(Linked Group 3) 4 mg, Oral, EVERY 8 HOURS PRN, Starting on Emiliana 11/05/24 at 0235, Until Discontinued, Nausea, Vomiting 951 (See Alternative - Provider: Aliyah Webster RN)2158 (See Alternative - Provider: Josephine Payton RN) polyethylene glycol (GLYCOLAX) packet 17 g 17 g, Oral, DAILY PRN, Starting on Emiliana 11/05/24 at 0235, Until Discontinued, Constipation, First line therapy for constipation 2148 (Given - Provider: Josephine Payton RN) potassium bicarb-citric acid (EFFER-K) effervescent tablet 40 mEq(Linked Group 4) 40 mEq, Oral, PRN, Starting on Emiliana 11/05/24 at 0235, Until Discontinued, Per Potassium Replacement Protocol, Administer as alternative if patient unable to tolerate oral tablet. K Lab Replacement Action 3.1 to 3.5 40 mEq ORAL x 1 Under 3.1 Refer to IV replacement protocol Recheck K level in AM. Protocol not for use in patients with CrCl less than 30 mL/min. Do not chew or crush. Dissolve flavored tablets completely in 3 to 4 ounces of cold water; unflavored tablets may be dissolved in 3 to 4 ounces of cold juice. Patient to sip slowly over a 5 to 10 minute period. May further dilute if GI adverse effects occur. potassium chloride (KLOR-CON M) extended release tablet 40 mEq(Linked Group 4) 40 mEq, Oral, PRN, Starting on Emiliana 11/05/24 at 0235, Until Discontinued, Potassium Replacement, May give alternative linked oral order (ordered as effervescent, packet, or liquid solution) if patient unable to tolerate tablet. K Lab Replacement Action 3.1 to 3.5 40 mEq ORAL x 1 Under 3.1 Refer to IV replacement protocol Recheck K level in AM. Protocol not for use in patients with CrCl less than 30 mL/min. Do not crush, chew, or suck on tablet. Tablet may also be broken in half and each half swallowed separately. potassium chloride 10 mEq/100 mL IVPB (Peripheral Line)(Linked Group 4) 10 mEq, IntraVENous, PRN, Starting on Emiliana 11/05/24 at 0235, Until Discontinued, at 100 mL/hr, Potassium Replacement, K Lab Replacement Action 2.7 to 3.0 10 mEq IVPB x 6 doses (60 mEq Total) Under 2.7 CALL PROVIDER and administer 10 mEq IVPB x 6 doses (60 mEq Total) Infuse at 10 mEq/hr. Repeat Potassium lab 1 hour after final administration. Protocol not for use in patients with CrCl less than 30 mL/min. prochlorperazine (COMPAZINE) injection 10 mg 10 mg, IntraVENous, EVERY 6 HOURS PRN, Starting on Emiliana 11/05/24 at 1401, Until Discontinued, Nausea, If administering IV push, administer at a maximum rate of 5 mg/minute. Patients should remain lying down following administration and be reassessed for relief of nausea and presence of hypotension. Patients should be assisted the first time they get up after administration. 1412 (Given - Provider: Aliyah Webster RN) sodium chloride flush 0.9 % injection 10 mL 10 mL, IntraVENous, PRN, Starting on Emiliana 11/05/24 at 0235, Until Discontinued, Line Care, After every IV line use Linked Groups Order Group 1: acetaminophen (TYLENOL) tablet 650 mgJump to med 650 mg, Oral, EVERY 6 HOURS PRN, Starting on Emiliana 11/05/24 at 0235, Until Discontinued, Pain Mild (1-3), Fever, For temp greater than 100.4 F (38 C), Maximum dose of acetaminophen is 4000 mg from all sources in 24 hours. Or acetaminophen (TYLENOL) suppository 650 mgJump to med 650 mg, Rectal, EVERY 6 HOURS PRN, Starting on Emiliana 11/05/24 at 0235, Until Discontinued, Pain Mild (1-3), Fever, For temp greater than 100.4 F (38 C), Administer if oral route cannot be used. Group 2: morphine (PF) injection 2 mg (CANCELED)Jump to med 2 mg, IntraVENous, EVERY 2 HOURS PRN, Starting on Meiliana 11/05/24 at 0235, Until Sat11/06/24 at 0635, Pain Moderate (4-6), If oral and IV narcotics ordered, use oral first and only use IV if oral is ineffective or cannot take oral. Do Not give oral and IV within 1 hour of each other unless specifically ordered. Or morphine injection 4 mg (CANCELED)Jump to med 4 mg, IntraVENous, EVERY 2 HOURS PRN, Starting on Emiliana 11/05/24 at 0235, Until Sat11/06/24 at 0635, Pain Severe (7-10), If oral and IV narcotics ordered, use oral first and only use IV if oral is ineffective or cannot take oral. Do Not give oral and IV within 1 hour of each other unless specifically ordered. Group 3: ondansetron (ZOFRAN-ODT) disintegrating tablet 4 mgJump to med 4 mg, Oral, EVERY 8 HOURS PRN, Starting on Emiliana 11/05/24 at 0235, Until Discontinued, Nausea, Vomiting Or ondansetron (ZOFRAN) injection 4 mgJump to med 4 mg, IntraVENous, EVERY 6 HOURS PRN, Starting on Emiliana 11/05/24 at 0235, Until Discontinued, Nausea, Vomiting, Administer if oral route cannot be used. Group 4: potassium chloride (KLOR-CON M) extended release tablet 40 mEqJump to med 40 mEq, Oral, PRN, Starting on Emiliana 11/05/24 at 0235, Until Discontinued, Potassium Replacement, May give alternative linked oral order (ordered as effervescent, packet, or liquid solution) if patient unable to tolerate tablet. K Lab Replacement Action 3.1 to 3.5 40 mEq ORAL x 1 Under 3.1 Refer to IV replacement protocol Recheck K level in AM. Protocol not for use in patients with CrCl less than 30 mL/min. Do not crush, chew, or suck on tablet. Tablet may also be broken in half and each half swallowed separately. Or potassium bicarb-citric acid (EFFER-K) effervescent tablet 40 mEqJump to med 40 mEq, Oral, PRN, Starting on Emiliana 11/05/24 at 0235, Until Discontinued, Per Potassium Replacement Protocol, Administer as alternative if patient unable to tolerate oral tablet. K Lab Replacement Action 3.1 to 3.5 40 mEq ORAL x 1 Under 3.1 Refer to IV replacement protocol Recheck K level in AM. Protocol not for use in patients with CrCl less than 30 mL/min. Do not chew or crush. Dissolve flavored tablets completely in 3 to 4 ounces of cold water; unflavored tablets may be dissolved in 3 to 4 ounces of cold juice. Patient to sip slowly over a 5 to 10 minute period. May further dilute if GI adverse effects occur. Or potassium chloride 10 mEq/100 mL IVPB (Peripheral Line)Jump to med 10 mEq, IntraVENous, PRN, Starting on Emiliana 11/05/24 at 0235, Until Discontinued, at 100 mL/hr, Potassium Replacement, K Lab Replacement Action 2.7 to 3.0 10 mEq IVPB x 6 doses (60 mEq Total) Under 2.7 CALL PROVIDER and administer 10 mEq IVPB x 6 doses (60 mEq Total) Infuse at 10 mEq/hr. Repeat Potassium lab 1 hour after final administration. Protocol not for use in patients with CrCl less than 30 mL/min. Scheduled Medication Order 12/30/2024 12/31/2024 01/01/2025 diphenhydrAMINE (BENADRYL) injection 25 mg (COMPLETED) 25 mg, IntraVENous, ONCE, 1 dose, On Sat01/01/25 at 0100, IV Push at rate not to exceed 25 mg/min. 0138 (Given - Provid er: Abbi Cui RN) morphine sulfate (PF) injection 4 mg (COMPLETED) 4 mg, IntraVENous, ONCE, 1 dose, On Sat01/01/25 at 0215, If oral and IV narcotics ordered, use oral first and only use IV if oral is ineffective or cannot take oral. Do Not give oral and IV within 1 hour of each other unless specifically ordered. 0206 (Given - Provid er: Katarzyna Tobin RN) prochlorperazine (COMPAZINE) injection 10 mg (COMPLETED) 10 mg, IntraVENous, ONCE, 1 dose, On Sat01/01/25 at 0100, If administering IV push, administer at a maximum rate of 5 mg/minute. Patients should remain lying down following administration and be reassessed for relief of nausea and presence of hypotension. Patients should be assisted the first time they get up after administration. 0138 (Given - Provid er: Abbi Cui RN) sodium chloride 0.9 % bolus 1,000 mL (COMPLETED) 1,000 mL, IntraVENous, at 2,000 mL/hr, Administer over 30 Minutes, ONCE, On Sat01/01/25 at 0100, For 1 dose 0117 (New Bag - Prov ider: Abbi Cui RN)0226 (Stopped - Provider: Katarzyna A Mahad, RN) Scheduled Medication Order 02/03/2025 02/04/2025 02/05/2025 diphenhydrAMINE (BENADRYL) injection 25 mg (COMPLETED) 25 mg, IntraVENous, ONCE, 1 dose, On Sat02/05/25 at 2044, IV Push at rate not to exceed 25 mg/min. 2102 (Given - Provid er: Mouna Shah RN) droPERidol (INAPSINE) injection 1.25 mg (COMPLETED) 1.25 mg, IntraVENous, ONCE, 1 dose, On Sat02/05/25 at 5 2148 (Given - Provid er: Mouna Shah RN) prochlorperazine (COMPAZINE) injection 10 mg (COMPLETED) 10 mg, IntraVENous, ONCE, 1 dose, On Sat02/05/25 at 2044, If administering IV push, administer at a maximum rate of 5 mg/minute. Patients should remain lying down following administration and be reassessed for relief of nausea and presence of hypotension. Patients should be assisted the first time they get up after administration. 2102 (Given - Provid er: Mouna Shah RN) sodium chloride 0.9 % bolus 1,000 mL (COMPLETED) 1,000 mL, IntraVENous, at 495.9 mL/hr, Administer over 121 Minutes, ONCE, On Sat02/05/25 at 2044, For 1 dose, For adult patients weighing > 55 kg (120 lbs.) and less than <50 years of age initiate 0.9NS at 500 mL/ hr. All bolus orders are to be given over 10 to 15 minutes 2102 (New Bag - Prov ider: Mouna Shah RN)2217 (Stopped - Provider: Mouna Shah RN) Scheduled Medication Order 02/07/2025 02/08/2025 02/09/2025 diphenhydrAMINE (BENADRYL) injection 25 mg (COMPLETED) 25 mg, IntraVENous, ONCE, 1 dose, On Sat02/09/25 at 1900, IV Push at rate not to exceed 25 mg/min. 1901 (Given - Provid er: Milvia Kendrick RN) haloperidol lactate (HALDOL) injection 5 mg (COMPLETED) 5 mg, IntraMUSCular, ONCE, 1 dose, On Sat02/09/25 at 2015, IM route of administration preferred. Because of the risk of TdP and QT prolongation, ECG monitoring is recommended if haloperidol is given IV. 2006 (Given - Provid er: Milvia Kendrick RN) prochlorperazine (COMPAZINE) injection 10 mg (COMPLETED) 10 mg, IntraVENous, ONCE, 1 dose, On Sat02/09/25 at 1900 190 (Given - Provid er: Milvia Kendrick RN) sodium chloride 0.9 % bolus 1,000 mL (COMPLETED) 1,000 mL, IntraVENous, at 1,000 mL/hr, Administer over 1 Hours, ONCE, On Sat02/09/25 at 1900, For 1 dose 1900 (New Bag - Prov ider: Milvia Kendrick RN)2028 (Stopped - Provider: Nancy Nunes RN) sodium chloride flush 0.9 % injection 3 mL(Linked Group 1) 3 mL, IntraVENous, EVERY 8 HOURS, First dose on Sat02/09/25 at 1900, Until Discontinued, Flush line with 3-5 mL 2028 (Not Given - Pr ovider: Nancy Nunes RN - Reason: IV Fluid Infusing) PRN Medication Order 02/07/2025 02/08/2025 02/09/2025 iopamidol (ISOVUE-370) 76 % injection 75 mL (COMPLETED) 75 mL, IntraVENous, IMG ONCE PRN, 1 dose, Starting on Sat02/09/25 at 1911, Until Sat02/09/25 at 1938, Other 1937 (Given - Provid er: Kesha Barry) Linked Groups Order Group 1: Saline lock IV (COMPLETED) Routine, CONTINUOUS, Starting on Sat02/09/25 at 1845, Until Specified And sodium chloride flush 0.9 % injection 3 mLJump to med 3 mL, IntraVENous, EVERY 8 HOURS, First dose on Sat02/09/25 at 1900, Until Discontinued, Flush line with 3-5 mL Care Teams (unrecognized sec tion and content) Professor Criminal Justice Relationship Specialty Start Date End Date Yossi Golden MD [address] [place] [address] PCP - General Family Medicine 09/28/18 Professor Criminal Justice Relationship Specialty Start Date End Date Yossi Golden MD [address] [place] [address] PCP - General Family Medicine 09/28/18 Professor Criminal Justice Relationship Specialty Start Date End Date Yossi Golden MD [address] [place] [address] PCP - General Family Medicine 09/28/18 Professor Criminal Justice Relationship Specialty Start Date End Date Yossi Golden MD [address] [place] [address] PCP - General Family Medicine 09/28/18 Professor Criminal Justice Relationship Specialty Start Date End Date Yossi Golden MD [address] [place] [address] PCP - General Family Medicine 09/28/18 Professor Criminal Justice Relationship Specialty Start Date End Date Yossi Golden MD [address] [place] [address] PCP - General Family Medicine 09/28/18 Professor Criminal Justice Relationship Specialty Start Date End Date Yossi Golden MD [address] [place] [address] PCP - General Family Medicine 09/28/18 Professor Criminal Justice Relationship Specialty Start Date End Date Yossi Golden MD [address] [place] [address] PCP - General Family Medicine 09/28/18 Professor Criminal Justice Relationship Specialty Start Date End Date Yossi Golden MD [address] [place] [address] PCP - General Family Medicine 09/28/18 Professor Criminal Justice Relationship Specialty Start Date End Date Naderer, Yossi Brandi, MD [address] [place] [address] PCP - General Family Medicine 09/28/18 Professor Criminal Justice Relationship Specialty Start Date End Date Yossi Golden MD [address] [place] [address] PCP - General Family Medicine 09/28/18 Professor Criminal Justice Relationship Specialty Start Date End Date Yossi Golden MD [address] [place] [address] PCP - General Family Medicine 09/28/18 Professor Criminal Justice Relationship Specialty Start Date End Date Yossi Golden MD [address] [place] [address] PCP - General Family Medicine 09/28/18 Professor Criminal Justice Relationship Specialty Start Date End Date Yossi Golden MD [address] [place] [address] PCP - General Family Medicine 09/28/18 Professor Criminal Justice Relationship Specialty Start Date End Date Yossi Golden MD [address] [place] [address] PCP - General Family Medicine 09/28/18 Professor Criminal Justice Relationship Specialty Start Date End Date Yossi Golden MD [address] [place] [address] PCP - General Family Medicine 09/28/18 Professor Criminal Justice Relationship Specialty Start Date End Date Yossi Golden MD [address] [place] [address] PCP - General Family Medicine 09/28/18 Professor Criminal Justice Relationship Specialty Start Date End Date Yossi Golden MD [address] [place] [address] PCP - General Family Medicine 09/28/18 Professor Criminal Justice Relationship Specialty Start Date End Date Yossi Golden MD [address] [place] [address] PCP - General Family Medicine 09/28/18 Professor Criminal Justice Relationship Specialty Start Date End Date Yossi Golden MD [address] [place] [address] PCP - General Family Medicine 09/28/18 Professor Criminal Justice Relationship Specialty Start Date End Date Yossi Golden MD [address] [place] [address] PCP - General Family Medicine 03/20/23 Professor Criminal Justice Relationship Specialty Start Date End Date Yossi Golden MD [address] [place] [address] PCP - General Family Medicine 03/20/23 Professor Criminal Justice Relationship Specialty Start Date End Date Yossi Golden MD [address] [place] [address] PCP - General Family Medicine 09/28/18 Professor Criminal Justice Relationship Specialty Start Date End Date Yossi Golden MD [address] [place] [address] PCP - General Family Medicine 03/20/23 Professor Criminal Justice Relationship Specialty Start Date End Date Yossi Golden MD [address] [place] [address] PCP - General Family Medicine 09/28/18 Professor Criminal Justice Relationship Specialty Start Date End Date Yossi Golden MD [address] [place] [address] PCP - General Family Medicine 03/20/23 Professor Criminal Justice Relationship Specialty Start Date End Date Yossi Golden MD [address] [place] [address] PCP - General Family Medicine 03/20/23 Professor Criminal Justice Relationship Specialty Start Date End Date Yossi Golden MD [address] [place] [address] PCP - General Family Medicine 03/20/23 Professor Criminal Justice Relationship Specialty Start Date End Date Yossi Golden MD [address] [place] [address] PCP - General Family Medicine 03/20/23 Professor Criminal Justice Relationship Specialty Start Date End Date Yossi Golden MD [address] [place] [address] PCP - General Family Medicine 03/20/23 Professor Criminal Justice Relationship Specialty Start Date End Date Aly Beverly MD [address] [place] [address] Referring Internal Medicine 09/15/24 Professor Criminal Justice Relationship Specialty Start Date End Date Yossi Golden MD [address] [place] [address] PCP - General Family Medicine 03/20/23 Professor Criminal Justice Relationship Specialty Start Date End Date Yossi Golden MD [address] [place] [address] PCP - General Family Medicine 09/28/18 Professor Criminal Justice Relationship Specialty Start Date End Date Yossi Golden MD [address] [place] [address] PCP - General Family Medicine 03/20/23 Professor Criminal Justice Relationship Specialty Start Date End Date Yossi Golden MD [address] [place] [address] PCP - General Family Medicine 09/28/18 Professor Criminal Justice Relationship Specialty Start Date End Date Yossi Golden MD [address] [place] [address] PCP - General Family Medicine 09/28/18 Professor Criminal Justice Relationship Specialty Start Date End Date Yossi Golden MD [address] [place] [address] PCP - General Family Medicine 03/20/23 Yossi Golden MD [address] [place] [address] [facility] 09/23/24 Professor Criminal Justice Relationship Specialty Start Date End Date Yossi Golden MD [address] [place] [address] PCP - General Family Medicine 09/28/18 Professor Criminal Justice Relationship Specialty Start Date End Date Aly Beverly MD [address] [place] [address] Referring Internal Medicine 09/15/24 Professor Criminal Justice Relationship Specialty Start Date End Date Aly Beverly MD [address] [place] [address] Referring Internal Medicine 09/15/24 Professor Criminal Justice Relationship Specialty Start Date End Date Aly Beverly MD [address] [place] [address] Referring Internal Medicine 09/15/24 Professor Criminal Justice Relationship Specialty Start Date End Date Aly Beverly MD [address] [place] [address] Referring Internal Medicine 09/15/24 Professor Criminal Justice Relationship Specialty Start Date End Date Aly Beverly MD [address] [place] [address] Referring Internal Medicine 09/15/24 Professor Criminal Justice Relationship Specialty Start Date End Date Aly Beverly MD [address] [place] [address] Referring Internal Medicine 09/15/24 Professor Criminal Justice Relationship Specialty Start Date End Date Aly Beverly MD [address] [place] [address] Referring Internal Medicine 09/15/24 Professor Criminal Justice Relationship Specialty Start Date End Date Yossi Golden MD [address] [place] [address] PCP - [facility] 09/28/18 Professor Criminal Justice Relationship Specialty Start Date End Date Yossi Golden MD [address] [place] [address] PCP - [facility] 03/20/23 Yossi Golden MD [address] [place] [address] PCP - [facility] 09/23/24 Professor Criminal Justice Relationship Specialty Start Date End Date Aly Beverly MD [address] [place] [address] Referring Internal Medicine 09/15/24 Professor Criminal Justice Relationship Specialty Start Date End Date Aly Beverly MD [address] [place] [address] Referring Internal Medicine 09/15/24 Professor Criminal Justice Relationship Specialty Start Date End Date Aly Beverly MD [address] [place] [address] Referring Internal Medicine 09/15/24 Professor Criminal Justice Relationship Specialty Start Date End Date Aly Beverly MD [address] [place] [address] Referring Internal Medicine 09/15/24 Professor Criminal Justice Relationship Specialty Start Date End Date Yossi Golden MD [address] [place] [address] PCP - General Family Medicine 09/28/18 Professor Criminal Justice Relationship Specialty Start Date End Date Yossi Golden MD [address] [place] [address] PCP - General Family Medicine 09/28/18 Professor Criminal Justice Relationship Specialty Start Date End Date Aly Beverly MD [address] [place] [address] Referring Internal Medicine 09/15/24 Professor Criminal Justice Relationship Specialty Start Date End Date Aly Beverly MD [address] [place] [address] Referring Internal Medicine 09/15/24 Professor Criminal Justice Relationship Specialty Start Date End Date Aly Beverly MD [address] [place] [address] Referring Internal Medicine 09/15/24 INFORMATION SOURCE (unrecogn ized section and content) DATE CREATED AUTHOR 12/29/2022 [facility] DATE CREATED AUTHOR AUTHOR'S ORGANIZ ATION 04/29/2024 [facility] DATE CREATED AUTHOR AUTHOR'S ORGANIZ ATION 05/23/2024 [facility] DATE CREATED AUTHOR AUTHOR'S ORGANIZ ATION 05/24/2024 [facility] DATE CREATED AUTHOR AUTHOR'S ORGANIZ ATION 06/10/2024 [facility] DATE CREATED AUTHOR AUTHOR'S ORGANIZ ATION 06/21/2024 [facility] DATE CREATED AUTHOR AUTHOR'S ORGANIZ ATION 06/30/2024 [facility] DATE CREATED AUTHOR AUTHOR'S ORGANIZ ATION 07/07/2024 [facility] DATE CREATED AUTHOR AUTHOR'S ORGANIZ ATION 07/31/2024 [facility] DATE CREATED AUTHOR AUTHOR'S ORGANIZ ATION 08/09/2024 [facility] DATE CREATED AUTHOR AUTHOR'S ORGANIZ ATION 08/10/2024 [facility] DATE CREATED AUTHOR AUTHOR'S ORGANIZ ATION 08/11/2024 [facility] DATE CREATED AUTHOR AUTHOR'S ORGANIZ ATION 08/16/2024 [facility] DATE CREATED AUTHOR AUTHOR'S ORGANIZ ATION 08/17/2024 [facility] DATE CREATED AUTHOR AUTHOR'S ORGANIZ ATION 08/25/2024 [facility] DATE CREATED AUTHOR AUTHOR'S ORGANIZ ATION 09/05/2024 [facility] DATE CREATED AUTHOR AUTHOR'S ORGANIZ ATION 09/11/2024 [facility] DATE CREATED AUTHOR AUTHOR'S ORGANIZ ATION 09/13/2024 [facility] DATE CREATED AUTHOR AUTHOR'S ORGANIZ ATION 10/06/2024 [facility] DATE CREATED AUTHOR AUTHOR'S ORGANIZ ATION 10/08/2024 [facility] DATE CREATED AUTHOR AUTHOR'S ORGANIZ ATION 10/09/2024 [facility] DATE CREATED AUTHOR AUTHOR'S ORGANIZ ATION 10/11/2024 [facility] DATE CREATED AUTHOR AUTHOR'S ORGANIZ ATION 10/11/2024 [facility] DATE CREATED AUTHOR AUTHOR'S ORGANIZ ATION 10/15/2024 [facility] DATE CREATED AUTHOR AUTHOR'S ORGANIZ ATION 01/29/2025 [facility] DATE CREATED AUTHOR AUTHOR'S ORGANIZ ATION 01/31/2025 [facility] DATE CREATED AUTHOR AUTHOR'S ORGANIZ ATION 01/31/2025 [facility] DATE CREATED AUTHOR AUTHOR'S ORGANIZ ATION 02/07/2025 [facility] DATE CREATED AUTHOR AUTHOR'S ORGANIZ ATION 02/16/2025 [facility] DATE CREATED AUTHOR AUTHOR'S ORGANIZ ATION 02/19/2025 [facility] DATE CREATED AUTHOR AUTHOR'S ORGANIZ ATION 04/06/2025 [facility] DATE CREATED AUTHOR AUTHOR'S ORGANIZ ATION 05/22/2025 [facility] Source Comments (unrecognize d section and content) In the event this informatio n is protected by the Federal Confidentiality of Alcohol and Drug Abuse Patient Records regulations: The Federal rules restrict any use of the information to criminally investigate or prosecute any alcohol or drug abuse patient.[facility] the event this information is protected by the Federal Confidentiality of Alcohol and Drug Abuse Patient Records regulations: The Federal rules restrict any use of the information to criminally investigate or prosecute any alcohol or drug abuse patient.[facility] CenterIn the event this information is protected by the Federal Confidentiality of Alcohol and Drug Abuse Patient Records regulations: The Federal rules restrict any use of the information to criminally investigate or prosecute any alcohol or drug abuse patient.[facility] CenterIn the event this information is protected by the Federal Confidentiality of Alcohol and Drug Abuse Patient Records regulations: The Federal rules restrict any use of the information to criminally investigate or prosecute any alcohol or drug abuse patient.[facility] CenterIn the event this information is protected by the Federal Confidentiality of Alcohol and Drug Abuse Patient Records regulations: The Federal rules restrict any use of the information to criminally investigate or prosecute any alcohol or drug abuse patient.[facility] CenterIn the event this information is protected by the Federal Confidentiality of Alcohol and Drug Abuse Patient Records regulations: The Federal rules restrict any use of the information to criminally investigate or prosecute any alcohol or drug abuse patient.[facility] CenterIn the event this information is protected by the Federal Confidentiality of Alcohol and Drug Abuse Patient Records regulations: The Federal rules restrict any use of the information to criminally investigate or prosecute any alcohol or drug abuse patient.[facility] CenterIn the event this information is protected by the Federal Confidentiality of Alcohol and Drug Abuse Patient Records regulations: The Federal rules restrict any use of the information to criminally investigate or prosecute any alcohol or drug abuse patient.[facility] CenterIn the event this information is protected by the Federal Confidentiality of Alcohol and Drug Abuse Patient Records regulations: The Federal rules restrict any use of the information to criminally investigate or prosecute any alcohol or drug abuse patient.[facility] CenterIn the event this information is protected by the Federal Confidentiality of Alcohol and Drug Abuse Patient Records regulations: The Federal rules restrict any use of the information to criminally investigate or prosecute any alcohol or drug abuse patient.[facility] CenterIn the event this information is protected by the Federal Confidentiality of Alcohol and Drug Abuse Patient Records regulations: The Federal rules restrict any use of the information to criminally investigate or prosecute any alcohol or drug abuse patient.[facility] CenterIn the event this information is protected by the Federal Confidentiality of Alcohol and Drug Abuse Patient Records regulations: The Federal rules restrict any use of the information to criminally investigate or prosecute any alcohol or drug abuse patient.[facility] CenterIn the event this information is protected by the Federal Confidentiality of Alcohol and Drug Abuse Patient Records regulations: The Federal rules restrict any use of the information to criminally investigate or prosecute any alcohol or drug abuse patient.[facility] CenterIn the event this information is protected by the Federal Confidentiality of Alcohol and Drug Abuse Patient Records regulations: The Federal rules restrict any use of the information to criminally investigate or prosecute any alcohol or drug abuse patient.[facility] CenterIn the event this information is protected by the Federal Confidentiality of Alcohol and Drug Abuse Patient Records regulations: The Federal rules restrict any use of the information to criminally investigate or prosecute any alcohol or drug abuse patient.[facility] CenterIn the event this information is protected by the Federal Confidentiality of Alcohol and Drug Abuse Patient Records regulations: The Federal rules restrict any use of the information to criminally investigate or prosecute any alcohol or drug abuse patient.[facility] CenterIn the event this information is protected by the Federal Confidentiality of Alcohol and Drug Abuse Patient Records regulations: The Federal rules restrict any use of the information to criminally investigate or prosecute any alcohol or drug abuse patient.[facility] FOR RECORDS PERTAINING TO PATIENTS WHO ARE [...] BE BASED ON THE PRIMARY CLINICAL RECORDS. [facility] [place] [employer] [facility]. provides no warranty or guarantee of the accuracy or completeness of information in this document.
== END 2025-05-25 20:20 | disposition home or self-care (01) ==
PROVIDERS: Emergency Provider Emergency Medicine; PCP Family Medicine
DX: L02.31 Cutaneous abscess of buttock (principal); F17.200 Nicotine dependence, unspecified, uncomplicated
CPT/HCPCS: 10060; 99283

== ENCOUNTER 2025-07-10 18:54 | Emergency (ER) | payer OTHER, SELFPAY ==
[2025-07-10 19:05] VITALS: BP 150/106; PULSE 102; TEMP 37.1; O2SAT 95; BMI 38.0
--- OUTSIDE RECORDS SUMMARY | 2025-07-10 19:08 | XMS_ITS | CCD ---
Author Organization [facility] Team Providers Care Catalyst Unit Operator Name Role Phone Yossi Golden Primary Care Provider YOSSI GOLDEN Primary Care Physician Chantel GREWAL, Yossi Bustillo Primary Care Provider CHANTEL, DR YOSSI Maldonado [...] BRIAN LORA Consulting Unavailable Chantel GREWAL, Yossi Bustillo Primary Care Provider Say GREWAL, Nilda Payne Attending Unavailgael [place] PREP COOK-SALESPERSON FLOWERS, Katie Negron Attending Unavailable Bayron ROSA, Kaden Quintero Attending Unavailab nelson Golden MD, Yossi Bustillo Primary Care Unavail able Sybil Abel MD Attending Unavailable Chantel GREWAL, Yossi Bustillo Primary Care Unavail able Chantel GREWAL, Yossi Bustillo Primary Care Unavail able Tom GREWAL, Sammy Attending Unavailab nelson Golden MD, Yossi Bustillo Primary Care Unavail able Sammy Santos MD Attending Unavailab nelson Alejandre PA-C, Devang Florence Attending Unavail able Kaden Verma DO Referring Unavailab Levi GREWAL, Yossi Bustillo Primary Care Unavail able Hill ESCOBAR, Devang Florence Attending Unavail able Chantel GREWAL, Yossi Bustillo Primary Care Unavail able Colten GREWAL, Sybil Attending Unavailable Chantel GREWAL, Yossi Meyerony Primary Care Unavail able Chantel GREWAL, Yossi [place] Primary Care Unavail able Ann ESCOBAR, Donna Cruz Attending Unavailab nelson Golden MD, Yossi Meyerony Primary Care Unavail able Pedro ESCOBAR, Garima [...] ira Golden MD, Yossi Primary Care Provider [phone] Sivakumar Beverlyhammad Talal Referring Unavaila ble Sarmini, Lu Talal Admitting Unavaila ble Lizette Beverlymad Talal Attending Unavaila Rob Wynne Attending Unavailable DO Chavo Squires Attending Unavailable Cameron Conklin Attending Unavailable Rob Leach Attending Unavailable Alphonso Sullivan Attending Unavailable Chantel GREWAL, Yossi Bustillo Primary Care Provider Cameron Conklin Attending Unavailable Phan Sandy Attending Unavailable Cameron Conklin Attending Unavailable Chavo Squires Attending Unavailable Aly Beverly Talal Attending Unavaila Aly Escobedo Attending Unavaila ira Sullivan Astrit H Attending Unavailable Beatriz GREEN Attending Unavailable Beatriz GREEN Admitting Unavailable Aly Beverly Talal Consulting UnavailMD Aly Rideral Consulting Unava ilable Aly Beverly Talal Consulting Unavaila ble Sarmini, Lu Talal Consulting Unavaila ble Sarmini, Lu Talal Consulting Unavaila ble Beatriz GREEN Attending Unavailable Beatriz GREEN Admitting Unavailable MD Aly Beverlyal Consulting Unava ilable Sarmini, Lu Talal Consulting Unavaila ble Sarmini, Lu Talal Consulting Unavaila ble Phan Sandy Attending Unavailable Sarmini, Lu Talal Referring Unavaila ble Sarmini, Lu Talal Attending Unavaila ble Tirsomingumaro, Lu Talal Admitting Unavaila Phan Guzman Attending Unavailable Monika Houston Primary Care Physician Monika [place] Unavailable Unavailable Cameron Conklin Attending Unavailable Du, Phan Attending Unavailable Aly Beverly Talal Attending Unavaila Aly Escobedo MD Talal Unavailable [phone] Cameron Conklin Attending Unavailable Rob Leach Attending Unavailable Cameron Conklin Attending Unavailable Phan Sandy Attending Unavailable Tonny Butler Attending Unavailable CHANTEL, YOSSI Attending Unavailable NADEREMichelle, YOSSI Attending Unavailable NADEREMichelle, YOSSI Attending Unavailable CHANTEL, YOSSI Attending Unavailable CHANTEL, YOSSI Attending Unavailable CATHERINEEREYOSSI Al Attending Unavailable Hajdari, Astrit H Attending Unavailable Hamoe, Astrit H Attending Unavailable Phan Sandy Attending Unavailable Aly Beverlyal Attending UnavailYossi Ash MD Unavailable Aly Beverly MD Unavailable [phone] YAJAIRA LACKEY Referring Unavailable RONALDO SÁNCHEZ Attending Unavailable RONALDO SÁNCHEZ Referring Unavailable Hajdari, Astrit H Attending Unavailable Hajdari, Astrit H Attending Unavailable DO Chavo Squires Attending Unavailable Cameron Conklin Attending Unavailable YOLY TSRANGE Attending Unavailable YOSSI GOLDEN Primary Care UnavailPETER Valencia Attending Unavailable YOSSI GOLDEN Primary Care UnavailYossi Vazquez MD Primary Care Unavail able Indio Toscano MD Attending Unavailable Yossi Golden MD Primary Care Unavail able Indio Toscano MD Attending Unavailable Chantel GREWAL, Yossi [place] Primary Care Unavail able Alanna RICH DO, Soco Menon Attending Unava ilable Goodson PREP COOK-SALESPERSON FLOWERS, Charli Tellez Attending U kaiden Golden MD, Yossi Brandi Primary Care Unavail able Chantel GREWAL, Yossi Bustillo Referring Unavail able Dagani PREP COOK-SALESPERSON FLOWERS, Merrill Kwan Attending Unavail able Chantel GREWAL, Yossi Brandi Primary Care Unavail able Chantel GREWAL, Yossi Bustillo Referring Unavail able Dagani PREP COOK-SALESPERSON FLOWERS, Merrill Kwan Consulting Unavail able Dagani PREP COOK-SALESPERSON FLOWERS, Merrill Kwan Attending Unavail able Chantel GREWAL, Yossi Brandi Primary Care Unavail able Dagani PREP COOK-SALESPERSON FLOWERS, Merrill Kwan Attending Unavail able Chantel GREWAL, Yossi Brandi Primary Care Unavail able Dagani PREP COOK-SALESPERSON FLOWERS, Merrill Kwan Attending Unavail able Chantel GREWAL, Yossi Brandi Primary Care Unavail able Chantel GREWAL, Yossi [place] Primary Care Unavail able Devang Alejandre PA-C Attending Unavail able Nehal Rapp DO Attending Unavaila ira Golden MD, Yossi Brandi Primary Care Unavail able Chantel GREWAL, Yossi Brandi Primary Care Unavail able Pedro ESCOBAR, Garima Liang Attending Unavaila ira Golden MD, Yossi Pe[place] Primary Care Unavail able Gloria Avitia DO Attending Unava ilsolo Golden MD, Yossi Brandi Primary Care Unavail able Say GREWAL, Nilda Payne Attending Unavailabl e LACKEYYAJAIRA S Referring Unavailable LACKEYYAJAIRA Attending Unavailable LACKEYYAJAIRA S Referring Unavailable RONALDO SÁNCHEZ Attending Unavailable LACKEYYAJAIRA Gomez Referring Unavailable RONALDO SÁNCHEZ Referring Unavailable RONALDO SÁNCHEZ Attending Unavailable JON BARRIOS MD Attending Unavailable BEST REYNOSO Attending Unavailable LACKEYYAJAIRA S Referring Unavailable PETER FRENCH Attending Unavailable YOSSI GOLDEN BRANDI Primary Care Unavailabl e YOSSI GOLDEN WAHPETON Primary Care Unavailabl e WILMAN BAINS Attending Unavailable WILMAN BAINS Admitting Unavailable YSOSI GOLDEN WAHPETON Primary Care Unavailabl DEDRA Reid Admitting Unavailable DEDRA PINEDA Attending Unavailable YOSSI GOLDEN WAHPETON Primary Care Unavailabl e DEDRA PINEDA Admitting Unavailable EDWIN, DEDRA SCHILLING Attending Unavailable NADERER, [facility] Unavailabl e DAGMERRILL SARAVIA Referring Unavailable NADERER, [facility] Unavailabl e NADERER, [facility] Unavailabl e GRUBIC, RONALDO Referring Unavailable GRUBIC, RONALDO Referring Unavailable NADERER, [facility] Unavailabl e GRUBIC, RONALDO Referring Unavailable NADERER, [facility] Unavailabl e ROD COLMENARES Attending Unavailable NADERER, [facility] Unavailabl e CINTRA, IMELDA G Attending Unavailable NADERER, [facility] Unavailabl e DEDRA, ROD Attending Unavailable NADERER, [facility] Unavailabl e POSADNY, SABIANIST L Attending Unavailable NADERER, [facility] Unavailabl e CHINYERE, DARRYL Attending Unavailable NADERER, [facility] Unavailabl e CHINYERE, DARRYL Attending Unavailable NADERER, [facility] Unavailabl e Allergies Allergy Classification Reported Allergen(s) Allergy Type Date of Onset Reaction(s) Facility Latex (1 source) Latex Substance Allergy 02-27-20 16 Itching [facility] NSAIDs (1 source) Ketorolac Drug Allergy 01-25-20 13 Shortness Of Breath, Itching [facility] Opioid Agonists (2 sources) Meperidine Drug Allergy 02-27-20 16 Shortness Of Breath, Itching [facility] Penicillin V (1 source) Penicillin V Drug Allergy 02-27-20 16 Rash [facility] Penicillins (antibiotic) (1 source) Amoxicillin Drug Allergy 02-27-20 16 Nausea And Vomiting [facility] Phenazopyridine (1 source) Phenazopyridine Drug Allergy 02-27-20 16 Anxiety [facility] (20 sources) Amoxicillin; Translations: [amoxicillin] Drug Allergy 02-26-20 16 Nausea And Vomiting, Eruption of skin (disorder), Nausea and vomiting (disorder), Rash [place] (20 sources) Ketorolac Drug Allergy 01-25-20 13 Shortness Of Breath, Itching, Other (See Comments), Other [place] (20 sources) Latex; Translations: [Latex] Propensity to adverse reactions to drug 02-27-20 16 Itching, Itching (finding) [place] (20 sources) Meperidine; Translations: [meperidine] Drug Allergy 02-26-20 16 Shortness Of Breath, Itching, Itching (finding), Dyspnea (finding) [place] (20 sources) Penicillin V Drug Allergy 02-27-20 16 Rash [place] (20 sources) Phenazopyridine Drug Allergy 02-27-20 16 Anxiety [place] (20 sources) Eggs Or Egg-Derived Products Propensity to adverse reactions to drug 02-27-20 16 Other (See Comments) [place] (20 sources) traMADol; Translations: [tramadol] Drug Allergy 02-17-20 20 Unknown [place] (20 sources) Penicillin G Drug Allergy 10-01-19 23 Other (See Comments), Other [facility] (20 sources) Egg; Translations: [Eggs] Food allergy Abdominal pain (finding) [facility] (20 sources) Ketorolac; Translations: [ketorolac] Drug Allergy 01-24-20 13 Itching (finding), Dyspnea (finding), Itching, Shortness of Breath [facility] (1 source) Amoxicillin Drug Allergy [facility] (3 sources) Ketorolac; Translations: [Toradol] Drug Allergy [facility] (1 source) Latex Drug allergy (disorder) [facility] (1 source) Meperidine Drug Allergy [facility] (4 sources) Penicillin; Translations: [penicillin] Drug Allergy [facility] (20 sources) Phenazopyridine; Translations: [Pyridium] Drug Allergy [facility] (1 source) Egg/Poultry Drug allergy (disorder) [facility] (20 sources) kiwi fruit allergenic extract Drug Allergy 06-03-20 23 Itching [facility] (20 sources) Egg-Derived Products Propensity to adverse reactions to drug 02-27-20 16 Other (See Comments), Other [facility] (2 sources) egg-containing compound; Translations: [egg-containing compound] Propensity to adverse reactions to food (disorder) [facility] Repository (20 sources) Kiwi; Translations: [Kiwi] Propensity to adverse reactions (disorder) [facility] Rep[facility] (20 sources) Phenazopyridine; Translations: [phenazopyridine] Drug Allergy 02-27-20 16 Anxiety, Mental Status Change, Other: See Comments [facility] (20 sources) Kiwi fruit Propensity to adverse reactions 06-03-20 23 Itching [facility] (20 sources) Latex Propensity to adverse reactions 02-27-20 16 Itching [facility] (1 source) Ketorolac; Translations: [Toradol] Drug Allergy [facility] (20 sources) Penicillins; Translations: [Penicillin] Allergy to substance (disorder) 02-27-20 16 Rash [facility] (1 source) Phenazopyridine; Translations: [Pyridium] Drug Allergy [place] [facility] (18 sources) egg extract; Translations: [EGG] Drug Allergy 12-03-19 25 GI Upset [facility] (2 sources) KIWI (ACTINIDIA CHINENSIS); Translations: [KIWI (ACTINIDIA CHINENSIS)] Propensity to adverse reactions to drug (disorder) 06-03-20 23 [facility] Other [place] Repository Medications Current Medications Medication Drug Class(es) Dates Sig (Normalized) Sig (Original) Acetaminophen (20 sources) Start: 11-05-2024 acetaminophen (TYLENOL) tablet 650 mg Start: 07-07-2024 acetaminophen (TYLENOL) tablet 650 mg Start: 05-24-2024 take 2 tablets by [facility] every six hours as needed for [...] times daily as needed for pain HYDROcodone-acetaminophen ([place]) 5-325 MG tablet Indications: Diabetic gastroparesis associated with type 2 diabetes mellitus (CMS/HCC) Take 1 tablet by mouth 4 (four) times a day as needed for severe pain for up to 7 days 28 tablet 07/06/2024 07/13/2024 Active Start: 06-08-2024 End: 06-15-2024 take 1 tablet by mouth four times daily as needed for pain HYDROcodone-acetaminophen ([place]) 5-325 MG tablet Indications: Diabetic gastroparesis associated with type 2 diabetes mellitus (CMS/HCC) Take 1 tablet by mouth 4 (four) times a day as needed for severe pain for up to 7 days 28 tablet 06/08/2024 06/15/2024 Active Start: 05-24-2024 End: 05-27-2024 take 1 tablet by mouth twice daily [place] 325 mg-5 mg oral tablet 1 tab(s), Oral, BID Pain for 3 day(s), 6 tab(s), Refill(s) 0, [facility] [id number], 173, cm, 05/22/24 21:52:00 EDT, Height/Length Dosing, [...] 5-325 MG per tablet 1 tablet albuterol 5 mg/ml inhalation solution (20 sources) beta2-Adrenergic Agonist Start: 06-13-2025 albut armen (PROVENTIL) (5 MG/ML) 0.5% nebulizer solution Take 0.5 mLs by nebulization every 6 hours as needed for Wheezing or Shortness of Breath 90 each 06/13/2025 Active Start: 11-05-2024 Start: 10-20-2024 Start: 07-07-2024 Start: [...] Active Start: 07-15-2020 take 1 tablet by elrinda th twice daily apixaban (ELIQUIS) 5 MG [...] dose 1 tablet 0 10/14/2023 10/14/2023 Active benzonatate 200 mg oral capsule (4 sources) Non-narcotic Antitussive Start: 06-13-2025 take 1 capsule by mouth three times daily as needed for cough benzonatate (TESSALON) 200 MG capsule Take 1 capsule by mouth 3 times daily as needed for Cough 20 capsule 06/13/2025 Active Start: 09-24-2019 End: 09-24-2019 benzonatate (TESSALON) capsu le 100 mg black cohosh extract 160 mg oral [...] (CLEOCIN) capsul e 300 mg Continuous Glucose Nuclear Physicist (Dexcom G7 Nuclear Physicist) device (20 sources) Start: 09-24-2024 Continuous Glu cose Nuclear Physicist (Dexcom G7 Nuclear Physicist) device Indications: Type 2 diabetes mellitus with hyperglycemia, with long-term current use of insulin ([facility]) 1 each continuously 1 each 09/24/2024 Active Start: 04-09-2024 Continuous Glu cose Nuclear Physicist (Dexcom G7 Nuclear Physicist) device Indications: Type 2 diabetes mellitus with hyperglycemia, with long-term current use of insulin ([facility]) 1 each continuously 1 each 04/09/2024 Active Continuous Glucose Sensor (Dexcom G7 Sensor) misc (20 sources) Start: 04-09-2024 Continuous Glu cose Sensor (Dexcom G7 Sensor) misc Indications: Type 2 diabetes mellitus with hyperglycemia, with long-term current use of insulin ([facility]) 1 each continuously 2 each 11 04/09/2024 [...] mg/ml oral solution (1 source) Phenothiazine, Uncompetitive R-bpidsb-L-aspartate Receptor Antagonist, Sigma-1 Agonist Start: 06-02-2021 End: [...] pain, # 28 cap(s), Refills(s) 0, Pharmacy: [facility] [id number], 173, cm, 10/06/24 13:15:00 EST, Height/Length Dosing, 113.6, kg, 10/06/24 13:15:00 EST, Weight Dosing Start Date: 10/06/24 Status: Ordered Quantity: 28.0 Unit: cap(s) Repeat number: 1 Start: 08-07-2024 End: 08-14-2024 take 1 tablet by mouth three times daily dicyclomine 20 mg Tab 20 mg = 1 tab(s), Oral, TID, X 7 day(s), # 21 tab(s), Refills(s) 0, Pharmacy: [facility] [id number], 172, cm, 08/07/24 9:14:00 EST, Height/Length Dosing, 111.2, kg, 08/07/24 9:14:00 EST, Weight Dosing Start Date: 08/07/24 Stop Date: 08/14/24 Status: Ordered Start: 07-07-2024 End: 07-07-2024 inject 1 dose by intramuscular injection once 20 mg, IntraMUSCular, ONCE, 1 dose, On Sat07/07/24 at 0900 Start: 11-24-2023 [facility] times daily as needed for [...] Start: 08-27-2020 take 1 capsule by mo [facility] three times daily as needed for pain dicyclomine (BENTYL) 10 MG capsule Take 1 capsule by mouth 3 times daily as needed (abdominal pain) 30 capsule 3 08/27/2020 Active docusate sodium 50 mg / sennosides, halfway [...] Start: 01-12-2022 take 1 tablet by erlinda every six hours hydrOXYzine HCl (ATARAX) 25 [...] patient (Rx) Start Date: 08/10/24 Status: Ordered lansinoh lanolin ointment (1 source) Start: 05-22-2020 lansinoh lanol in ointment lidocaine 0.04 mg/mg medicated patch (20 sources) Antiarrhythmic, Amide Local Anesthetic Start: 10-20-2024 1 patch, Topical, Administer over 12 Hours, DAILY, First dose on Sat10/20/24 at 1600, Substituted for Lidocaine 5% Patch. The financial services associate's recommendations for the number of patches that can be applied within a 24-hour period varies from 1 to 4 times daily and the duration of application varies from 8 to 24 hours; refer to the financial services associate's labeling for product-specific recommendations. Start: 07-07-2024 Start: [...] day(s), # 45 cap(s), Refills(s) 0, Pharmacy: [facility] [id number], 172, cm, 08/13/24 9:03:00 EST, Height/Length Dosing, [...] spray Indications: Diabetic gastroparesis (HCC) Use 1 [place] in the nose four times daily. 9.8 [...] q6hr, # 12 tab(s), Refills(s) 0, Pharmacy: [facility] [id number], 173, cm, 06/09/24 2:42:00 EDT, Height/Length Dosing, [...] for 28 day(s), 1 kit(s), Refill(s) 0, [facility] [id number], 173, cm, 05/22/24 21:52:00 EDT, Height/Length Dosing, [...] (PROCARDIA) capsule 20 mg Start: 04-02-2020 NIFEdipine ([place] OCARDIA) capsule 40 mg Start: 03-29-2020 NIFEdipine (KS OCARDIA) capsule 40 mg Start: 03-29-2020 End: [...] Start: 09-19-2022 take 1 capsule by mo uth once daily omeprazole (PRILOSEC) 40 MG delayed release capsule Take 1 capsule by mouth daily 0 09/19/2022 Active take 1 capsule by mo uth twice daily before mealtime omeprazole 20 mg [...] tablet (20 sources) Serotonin-3 Receptor Antagonist Start: 06-22-2025 take 1 tablet by mouth three times daily as needed for nausea ondansetron (ZOFRAN-ODT) 4 MG disintegrating tablet Take 1 tablet by mouth 3 times daily as needed for Nausea or Vomiting 21 tablet 06/22/2025 Active Start: 06-22-2025 End: 06-22-2025 4 mg, IntraVENous, ONCE, 1 d ose, On Sat06/22/25 at 0915 Start: 11-05-2024 End: 11-05-2024 4 mg, IntraVENous, ONCE, 1 d ose, On Sat11/05/24 at 0215 Start: 10-20-2024 End: [...] day(s), # 10 tab(s), Refills(s) 0, Pharmacy: [facility] [id number], 172, cm, 08/07/24 9:14:00 EST, Height/Length Dosing, 111.2, kg, 08/07/24 9:14:00 EST, Weight Dosing Start Date: 08/07/24 Stop Date: 08/10/24 Status: Ordered Start: 07-07-2024 End: 07-07-2024 4 mg, IntraVENous, ONCE, 1 d ose, On Sat07/07/24 at 0900 Start: 06-08-2024 take 1 tablet by erlinda th three times daily as needed for nausea ondansetron (ZOFRAN) 4 MG tablet Take 1 tablet by mouth 3 times daily as needed for Nausea or Vomiting 15 tablet 06/08/2024 Active Start: 06-01-2024 take 1 tablet by erlinda th every eight hours as needed for nausea Zofran 4 mg Tab 4 mg = 1 tab(s), Oral, q8hr, PRN Nausea/Vomiting, # 60 tab(s), Refills(s) 6, Pharmacy: [facility] [id number], 173, cm, 06/01/24 9:48:00 EDT, Height/Length Dosing, 111, kg, 06/01/24 9:48:00 EDT, Weight Dosing Start Date: 06/01/24 Status: Ordered Quantity: 60.0 Unit: tab(s) Repeat number: 7 Start: 05-26-2024 End: 05-26-2024 4 mg, IntraVENous, ONCE, 1 d ose, On Sat05/26/24 at 1215 Start: 05-24-2024 End: 05-27-2024 take 1 tablet by mouth every six hours as needed for nausea ondansetron 4 mg Dis Tab 4 mg = 1 tab(s), Oral, q6hr, PRN Nausea, X 3 day(s), # 12 tab(s), Refills(s) 0, Pharmacy: [facility] [id number], 173, cm, 05/22/24 21:52:00 EDT, Height/Length Dosing, [...] 01/04/2019 Active take 2 tablets by mo uth every eight hours as needed for nausea and vomiting ondansetron (Zofran) 4 MG tablet Take 8 mg by mouth every 8 (eight) hours if needed for nausea or vomiting Active ondansetron (ZOFRAN-ODT) disintegrating tablet 4 mg [...] 27-1 MG tablet 1 tablet promethazine hydrochloride 25 mg oral tablet (20 sources) Phenothiazine Start: 02-12-2025 take 1 tablet by mouth every six hours as needed for nausea promethazine (PHENERGAN) 25 MG tablet Take 1 tablet by mouth every 6 hours as needed for Nausea WARNING: May cause drowsiness. May impair ability to operate vehicles or machinery. Do not use in combination with alcohol. 20 tablet 02/12/2025 Active Start: 10-06-2024 take 12.5 mg rectal route every four hours as needed for nausea promethazine 12.5 mg Supp 12.5 mg = 1 supp, Rectal, q4hr, PRN for nausea/vomiting, # 12 supp, Refills(s) 0, Pharmacy: [facility] [id number], 173, cm, 10/06/24 13:15:00 EST, Height/Length Dosing, [...] Start: 06-01-2024 take 25 mg rectal ro dylan every twelve hours as needed for nausea Phenergan 25 mg Supp 25 mg = 1 supp, Rectal, q12hr, PRN Nausea/Vomiting, # 60 EA, Refills(s) 6, Pharmacy: [facility] [id number], 173, cm, 06/01/24 9:48:00 EDT, Height/Length Dosing, [...] Daily, # 30 tab(s), Refills(s) 3, Pharmacy: [facility] [id number], 172, cm, 08/10/24 10:32:00 EST, Height/Length Dosing, [...] Start: 11-30-2022 take 1 tablet by erlinda once daily sertraline 25 mg Tab 25 [...] day(s), # 28 tab(s), Refills(s) 0, Pharmacy: [facility] [id number], 173, cm, 06/09/24 2:42:00 EDT, Height/Length Dosing, [...] 04/29/2024 Active take 1 capsule by mo uth every eight hours as needed tizanidine 4 [...] Nausea/Vomiting, # 30 tab(s), Refills(s) 0, Pharmacy: [facility] [id number], 172, cm, 09/30/24 10:54:00 EST, Height/Length Dosing, 112.8, kg, 09/30/24 10:54:00 EST, Weight Dosing Start Date: 09/30/24 Status: Ordered Quantity: 30.0 Unit: tab(s) Repeat number: 1 Start: 09-30-2024 take 1 tablet by erlinda th every eight hours as needed for nausea Zofran ODT 4 mg Tab-Dis 4 mg = 1 tab(s), Oral, q8hr, PRN Nausea/Vomiting, # 30 tab(s), Refills(s) 0, Pharmacy: [facility] [id number], 172, cm, 09/30/24 10:54:00 EST, Height/Length Dosing, [...] every four hours as needed for headache uuqniivedh-HPQM-vx ffeine (FIORICET) 50-300-40 MG CAPS per capsule [...] for 3 day(s), 12 tab(s), Refill(s) 0, [facility] [id number], 172, cm, 09/30/24 10:54:00 EST, Height/Length Dosing, [...] 0.833 mg/ml / ipratropium bromide 0.167 mg/ml inhalation solution (20 sources) Anticholinergic, beta2-Adrenergic Agonist Start: 06-13-2025 End: 06-13-2025 1 Dose, Inhalation, NOW, 1 dose, On 06/13/25 at 1945, Initiate RT Bronchodilator Protocol: No Start: 12-05-2018 End: 08-27-2020 take 3 mL by inhalation every four hours ipratropium-albuterol (DUONEB) 0.5-2.5 (3) MG/3ML SOLN nebulizer solution Inhale 3 mLs into the lungs every 4 hours 360 mL 0 12/05/2018 08/27/2020 Discontinued (Therapy completed) aluminum & magnesium hydroxide-simethicone (MAALOX) 30 mL, [...] tablet 1 tablet barium sulfate 60 % suspensi on 355 mL (1 source) Start: 05-26-2021 End: 05-26-2021 barium sulfate 60 % suspensi on 355 mL Blood Glucose Monitoring Sup pl (TRUE METRIX METER) w/Device KIT (17 sources) Start: 11-27-2019 End: 05-24-2020 Blood Glucose Monitoring Sup pl (TRUE METRIX METER) w/Device KIT use as [...] 12.5 mg, IntraVENous, ONCE, 1 dose, On Sat11/05/24 at 1430, IV Push at rate not to exceed 25 mg/min. Start: 11-05-2024 End: 11-05-2024 25 mg, IntraVENous, ONCE, 1 dose, On Sat11/05/24 at 0015 Start: 11-04-2024 End: 11-04-2024 50 mg, IntraVENous, ONCE, 1 dose, On Sat11/04/24 at 2200 Start: 10-20-2024 End: 10-20-2024 25 mg, IntraVENous, ONCE, 1 dose, On Sat10/20/24 at 0945, IV Push at rate not to exceed 25 mg/min. Start: 09-17-2024 End: 09-17-2024 25 mg, IntraVENous, ONCE, 1 dose, On Sat09/17/24 at 1330, IV Push at rate not [...] on Sat11/05/24 at 0900, Until Discontinued Start: 10-08-2024 End: 10-22-2024 take 1 tablet by mouth twice daily famotidine 20 mg Tab 20 mg = 1 tab(s), Oral, BID, X 14 day(s), # 28 tab(s), Refills(s) 0, Pharmacy: [facility] [id number], 173, cm, 10/08/24 17:52:00 EST, Height/Length Dosing, [...] a day take 1 capsule by mo uth three times daily gabapentin (NEURONTIN) 100 MG [...] Date: 11/30/22 Status: Ordered Repeat number: 1 take 2 tablets by mo [facility] twice daily before mealtime glipiZIDE (GLUCOTROL) 10 MG tablet Take 2 tablets by mouth 2 times daily (before meals) Active take 1 tablet by erlinda th [...] 1 mg, IntraVENous, ONCE, 1 dose, On Emiliana 11/05/24 at 0200 Start: 11-04-2024 End: 11-05-2024 1 mg, IntraVENous, ONCE, 1 d ose, On Sat11/05/24 at 0030 Start: 10-20-2024 End: 10-20-2024 1 mg, IntraVENous, ONCE, 1 d ose, On Sat10/20/24 at 1500 Start: 10-20-2024 End: 10-20-2024 1 mg, IntraVENous, ONCE, 1 d ose, On Sat10/20/24 at 1115 ibuprofen 400 mg oral tablet (20 sources) Nonsteroidal Anti-inflammatory Drug Start: 06-22-2025 End: 06-22-2025 take 1 dose by mouth once 400 mg, Oral, ONCE, 1 dose, On Sat06/22/25 at 1830 Start: 06-01-2024 ibuprofen Refi lls(s) 0 Start Date: 06/01/24 Status: Ordered Repeat [...] Pain 60 tablet 3 05/24/2020 09/17/2020 Discontinued insulin glargine 100 unt/ml injectable solution (20 sources) Insulin Analog Start: 11-05-2024 inject 25 [IU] by subcutaneous injection once daily 25 Units, SubCUTAneous, NIGHTLY, First dose on Emiliana 11/05/24 at 2100, Until Discontinued Start: 10-21-2024 insulin [...] (NORFLEX) injection 60 mg polyethylene glycol [id number] mg powder for oral solution (12 sources) Osmotic Laxative Start: 11-05-2024 17 g, Oral, D AILY PRN, Starting on Sat11/05/24 at 0235, Until Discontinued, Constipation, First line [...] days 20 tablet 0 09/17/2020 09/21/2020 Active THNHWT-S4-O0-G58-Y0-NH PO (17 sources) End: 05-24-2020 MHGXXR-J9-T1-N01-V5-NP PO Ta ke by mouth 0 05/24/2020 Discontinued (Stop Taking at Discharge) HLBCOZ-U0-H0-B12 -D3-FA PO Take by mouth 0 Suspended UBXMDR-S2-W3-B12 -D3-FA PO Take by mouth 0 Active prochlorperazine 5 mg/ml injectable solution (20 sources) Phenothiazine Start: 02-09-2025 End: 02-09-2025 10 mg, IntraVENous, ONCE, 1 dose, On Tu02/09/25 at 1900 Start: 02-05-2025 End: 02-05-2025 10 [...] Nous, EVERY 6 HOURS PRN, Starting on Emiliana [...] (Nausea, vomiting) 28 tablet 05/26/2024 06/02/2024 Active Xnkakmbtsoqdyyi-WCCG-HR (DAY QUIL PO) (4 sources) End: 10-29-2022 Nlwdjizdrvbzoso-VABZ-XJ (DAYQUIL PO) Take by mouth 0 10/29/2022 [...] 9 mg/m l injection (20 sources) Start: 06-22-2025 End: 06-22-2025 1,000 mL (8.82 mL/kg), IntraVENous, at 983.6 mL/hr, Administer over 61 Minutes, ONCE, On Sat06/22/25 at 0915, For 1 dose Start: 02-09-2025 End: 02-09-2025 1,000 mL, IntraVENous, [...] mL/hr, Administer over 121 Minutes, ONCE, On e 05/26/24 at 1215, For 1 dose Start: 01-04-2024 [...] frequent line interruptions/ long duration, Starting on 2/20/23 at 1204 For piggyback infusion, administer at [...] Care, After every IV line use, Starting 06/13/20 at 2339 Start: 05-22-2020 sodium chlorid e [...] unspecified] Episodic Other aftercare (1 source) Other assisted (current) drug therapy; Translations: [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 CURRENT DRUG THERAPY] Onset: 3 Episodic Other [...] (1 source) Bladder disorder, unspecified Chronic Other endocrine disorders (1 source) Polycystic ovarian [...] UNSPECIFIED] Onset: 3 Episodic Other gastrointestinal disorders (3 sources) Constipation, unspecified; Translations: [Constipation, unspecified] Onset: 4 Episodic Other gastrointestinal disorders (2 sources) Other constipation; Translations: [Other constipation] Onset: 4 Episodic Other gastrointestinal disorders (8 sources) Chronic constipation 09-09-2024 Episodic Other gastrointestinal disorders (2 sources) Constipation; Translations: [Constipation, unspecified] 06-22-2025 Episodic Other injuries and conditions due to [...] breath)] 11-30-2022 Episodic Other lower respiratory disease (2 sources) Cough; Translations: [Cough] Episodic Other nervous system [...] (BMI) of 37.0 to 37.9 in adult ([facility])] Onset: 4 08-11-2024 Chronic Other nutritional; endocrine; [...] of right ovary] Pancreatic disorders (not diabetes) (17 sources) Chronic pancreatitis; Translations: [Other chronic pancreatitis] [...] WITHOUT BLEEDING] Onset: 3 Unclassified (1 source) 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 NONINSULN ANTIDIAB; Translations: [SENIOR LIVING INJECT NONINSULN ANTIDIAB] Onset: 3 Unclassified (3 sources) LOW BACK PAIN, UNSPECIFIED; Translations: [LOW BACK PAIN, UNSPECIFIED] Onset: 2 Unclassified (1 source) CONTACT W/AND (SUSP) EXPOS COVID-19; Translations: [CONTACT W/AND (SUSP) EXPOS COVID-19] Onset: 2 Unclassified (20 sources) Patient on antidepressant monitoring plan Onset: 4 01-20-2024 Unclassified (20 sources) Baseline PHQ-9 Onset: 4 01-20-2024 Unclassified (1 source) Cough, unspecified; Translations: [Cough, unspecified] Onset: 5 Past or Other Problems Problem Classification Problem [...] vomiting; Translations: [Nausea] Onset: 01-13-2024 Episodic Other circulatory disease (20 sources) Prehypertension; [...] 06-21-2023 06-21-2023 Episodic Other connective tissue disease (20 sources) Other symptoms and signs involving the musculoskeletal system; Translations: [Other musculoskeletal symptoms referable to limbs] Onset: 06-21-2023 06-21-2023 Episodic Other connective tissue disease (1 source) Pain in right leg Onset: 05-04-2024 Episodic Other connective tissue disease (1 source) Pain in left leg Onset: 05-04-2024 Episodic Other disorders of stomach and duodenum (20 sources) Gastroparesis syndrome; Translations: [Gastroparesis] Onset: 05-23-2024 Episodic Other disorders of stomach and duodenum [...] Test Name Value Interpretation Reference Range Facility NM GASTRIC EMPTYINGon 2024 NM GASTRIC EMPTYING EXAMINATION: NUCLEAR MEDICINE GASTRIC EMPTYING STUDY 06/25/2025 8:11 am TECHNIQUE: Following ingestion of a standard solid meal labeled with 1.1 mCi Tc 99m sulfur colloid, planar images of the chest and abdomen were obtained at 0, 1, 2 and 4 hours in both anterior and posterior projections. Regions of interest were drawn around the stomach and geometric means were calculated. All medications capable of altering motility were held. COMPARISON: None. HISTORY: ORDERING SYSTEM PROVIDED HISTORY: Diabetic gastroparesis associated with type 2 diabetes mellitus (HCC) TECHNOLOGIST PROVIDED HISTORY: Is the patient ?->No FINDINGS: The gastric emptying were calculated as follows: At 60 min, there is 65% emptying of the stomach. (Normal range is 10-70%) At 120 min, there is 73% emptying of the stomach. (Normal is >40%) At 240 min, there is 87% emptying of the stomach. (Normal is >90%) No significant esophageal retention, hiatal hernia or reflux was observed. IMPRESSION: Impaired delayed phase of gastric emptying and can be seen in early gastroparesis. Interpreted by: Jose Luther MD Signed by: Jose Luther MD 06/28/25 Final result Normal [facility] CBC with Auto Differentialon 06-22-2025 Basophils (Bld) [#/Vol] 0.05 10*3/uL [facility] Basophils/100 WBC (Bld) 1 % 0 - 2 % [facility] Eosinophils (Bld) [#/Vol] 0.11 10*3/uL [facility] Eosinophils/100 WBC (Bld) 1 % 1 - 4 % [facility] Erythrocyte distribution width (RBC) [Ratio] 12.9 % 11.8 - 14.4 % [facility] Hematocrit (Bld) [Volume fraction] 43.9 % 36.3 - 47.1 % [facility] Hemoglobin (Bld) [Mass/Vol] 14.9 g/dL 11.9 - 15.1 g/dL [facility] Immature granulocytes (Bld) [#/Vol] 0.05 10*3/uL [facility] Immature granulocytes/100 WBC (Bld) 1 % High 0 [facility] Interpretation and review of laboratory results Abnormal [facility] Lymphocytes/100 WBC (Bld) 26 % 24 - 43 % [facility] Lymphocytes/100 WBC (Bld) 2.68 % [facility] MCH (RBC) [Entitic mass] 30.8 pg 25.2 - 33.5 pg [facility] MCHC (RBC) [Mass/Vol] 33.9 g/dL 28.4 - 34.8 g/dL [facility] MCV (RBC) [Entitic vol] 90.9 fL 82.6 - 102.9 fL [facility] Monocytes/100 WBC (Bld) 6 % 3 - 12 % [facility] Monocytes/100 WBC (Bld) 0.63 % [facility] Neutrophils/100 WBC (Bld) 65 % 36 - 65 % [facility] Nucleated RBC/100 WBC (Bld) [Ratio] 0.0 % 0.0 per 100 WBC [facility] Platelet mean volume (Bld) [Entitic vol] 10.4 fL 8.1 - 13.5 fL [facility] Platelets (Bld) [#/Vol] 303 10*3/uL [facility] RBC (Bld) [#/Vol] 4.83 10*6/uL 3.95 - 5.1 1 m/uL [facility] Segmented neutrophils/100 WBC (Bld) 6.69 % [facility] WBC other (Bld) [#/Vol] 10.2 [facility] CBC with Diffon 06-22-2025 Abs. Basophil 0.05 k/uL Normal 0.00-0.20 [facility] Comment on above: Performed By: #### C DP, CP, LIP ####[address] [place] [address] Lab Director: Murtaza Arceo MD Abs.Imm.Granulocyte 0.05 k/uL Normal 0.00-0.30 [facility] Comment on above: Performed By: #### C DP, CP, LIP ####[address] [place] [phone] Director: Murtaza Arceo MD Abs.Neutrophil (Seg) 6.69 k/uL Normal 1.50-8.10 [facility] Comment on above: Performed By: #### C DP, CP, LIP ####[address] [place] [address] Lab Director: Murtaza Arceo MD Basophils/100 WBC (Bld) 1 % Normal 0-2 [facility] Comment on above: Performed By: #### C DP, CP, LIP ####[address] [place] [address] Lab Director: Murtaza Arceo MD Eosinophils (Bld) [#/Vol] 0.11 10*3/uL Normal 0.00-0.44 [facility] Comment on above: Performed By: #### C DP, CP, LIP ####[address] [place] [address] Lab Director: Murtaza Arceo MD Eosinophils/100 WBC (Bld) 1 % Normal 1-4 [facility] Comment on above: Performed By: #### C DP, CP, LIP ####[address] , [place] [id number] Lab Director: Murtaza Arceo MD Erythrocyte distribution width (RBC) [Ratio] 12.9 % Normal 11.8-14.4 [facility] Comment on above: Performed By: #### C DP, CP, LIP ####[address] [place] [address] Lab Director: Murtaza Arceo MD Hematocrit (Bld) [Volume fraction] 43.9 % Normal 36.3-47.1 [facility] Comment on above: Performed By: #### C DP CP, LIP ####[address] [place] [address] Lab Director: Murtaza Arceo MD Hemoglobin (Bld) [Mass/Vol] 14.9 g/dL Normal 11.9-15.1 [facility] Comment on above: Performed By: #### C DP CP, LIP ####[address] [place] [address] Lab Director: Murtaza Arceo MD Immature granulocytes/100 WBC (Bld) 1 % High 0 [facility] Comment on above: Performed By: #### C DP, CP, LIP ####[address] [place] [address] Lab Director: Murtaza Arceo MD Lymphocytes (Bld) [#/Vol] 2.68 10*3/uL Normal 1.10-3.70 [facility] Comment on above: Performed By: #### C DP, CP, LIP ####[address] , [place] [id number] Lab Director: Murtaza Arceo MD Lymphocytes/100 WBC (Bld) 26 % Normal 24-43 [facility] Comment on above: Performed By: #### C DP, CP, LIP ####[address] [place] [address] Lab Director: Murtaza Arceo MD MCH (RBC) [Entitic mass] 30.8 pg Normal 25.2-33.5 [facility] Comment on above: Performed By: #### C DP, CP, LIP ####[address] [place] [address] Lab Director: Murtaza Arceo MD MCHC (RBC) [Mass/Vol] 33.9 g/dL Normal 28.4-34.8 [facility] Comment on above: Performed By: #### C DP, CP, LIP ####[address] , [facility] lab Director: Murtaza Arceo MD MCV (RBC) [Entitic vol] 90.9 fL Normal 82.6-102.9 [facility] Comment on above: Performed By: #### C VENKAT CP, LIP ####[address] , [place] [id number] Lab Director: Murtaza Arceo MD Monocytes (Bld) [#/Vol] 0.63 10*3/uL Normal 0.10-1.20 [facility] Comment on above: Performed By: #### C DP, CP, LIP ####[address] , [place] [id number] Lab Director: Murtaza Arceo MD Monocytes/100 WBC (Bld) 6 % Normal 3-12 [facility] Comment on above: Performed By: #### C DP, CP, LIP ####[address] , [place] [id number] Lab Director: Murtaza Arceo MD Neutrophil (Seg) 65 % Normal 36-65 [facility] Comment on above: Performed By: #### C DP, CP, LIP ####[address] [place] [address] Lab Director: Murtaza Arceo MD NRBC Automated 0.0 per 100 WBC Normal 0.0 [facility] Comment on above: Performed By: #### C DP, CP, LIP ####[address] , [phone] Director: Murtaza Arceo MD Platelet mean volume (Bld) [Entitic vol] 10.4 fL Normal 8.1-13.5 [facility] Comment on above: Performed By: #### C DP, CP, LIP ####[address] [place] [address] Lab Director: Murtaza Arceo MD Platelets (Bld) [#/Vol] 303 10*3/uL Normal 138-453 [facility] Comment on above: Performed By: #### C DP, CP, LIP ####[address] [place] [address] Lab Director: Murtaza Arceo MD RBC (Bld) [#/Vol] 4.83 10*6/uL Normal 3.95-5.11 [facility] Comment on above: Performed By: #### C DP, CP, LIP ####[address] , [place] [address])[phone] Director: Murtaza Arceo MD WBC (Bld) [#/Vol] 10.2 10*3/uL Normal 3.5-11.3 [facility] Comment on above: Performed By: #### C DP, CP, LIP ####[address] , [place] [id number] Lab Director: Murtaza Arceo MD Comp Metabolic Profon 2024 Albumin [Mass/Vol] 4.4 g/dL Normal 3.5-5.2 [facility] Comment on above: Performed By: #### C DP, CP, LIP ####[address] [place] [address] Lab Director: Murtaza Arceo MD Albumin/Glob Ratio 1.4 Normal 1.0-2.5 [facility] Comment on above: Performed By: #### C DP, CP, LIP ####[address] [place] [address] Lab Director: Murtaza Arceo MD Alkaline Phos 106 U/L High 35-104 [facility] Comment on above: Performed By: #### C DP, CP, LIP ####[address] [place] [address] Lab Director: Murtaza Arceo MD ALT [Catalytic activity/Vol] 48 U/L High 10-35 [facility] Comment on above: Performed By: #### C DP, CP, LIP ####[address] [place] [address] Lab Director: Murtaza Arceo MD Anion gap [Moles/Vol] 15 mmol/L Normal 9-16 [facility] Comment on above: Performed By: #### C DP, CP, LIP ####[address] [place] [address] Lab Director: Murtaza Arceo MD AST [Catalytic activity/Vol] 56 U/L High 10-35 [facility] Comment on above: Performed By: #### C DP, CP, LIP ####[address] [place] [address] Lab Director: Murtaza Arceo MD Bilirubin [Mass/Vol] 0.5 mg/dL Normal 0.00-1.20 [facility] Comment on above: Performed By: #### C DP, CP, LIP ####[address] [place] [address] lab Director: Murtaza Arceo MD BUN/CRE Ratio 20 Normal 9-20 [facility] Comment on above: Performed By: #### C DP CP, LIP ####[address] , [place] [id number] lab Director: Murtaza Arceo MD Calcium [Mass/Vol] 9.8 mg/dL Normal 8.6-10.4 [facility] Comment on above: Performed By: #### C DP, CP, LIP ####[address] , [place] [id number] lab Director: Murtaza Arceo MD Chloride [Moles/Vol] 100 mmol/L Normal 98-107 [facility] Comment on above: Performed By: #### C VENKAT CP, LIP ####[address] [place] [address] lab Director: Murtaza Arceo MD CO2 [Moles/Vol] 22 mmol/L Normal 20-31 [facility] Comment on above: Performed By: #### C VENKAT CP, LIP ####[address] [place] [address] lab Director: Murtaza Arceo MD Creatinine [Mass/Vol] 0.6 mg/dL Normal 0.50-0.90 [facility] Comment on above: Performed By: #### C VENKAT CP, LIP ####[address] [place] [address] lab Director: Murtaza Arceo MD GFR/1.73 sq M.predicted among non-blacks MDRD (S/P/Bld) [Vol rate/Area] mL/min/{1.73_m2} Normal >60 [facility] Comment on above: Result Comment: These [...] Performed By: #### C ANA ROBLEDO, LIP ####[address] [place] [address] Lab Director: Murtaza Arceo MD Glucose [Mass/Vol] 300 mg/dL High 74-99 [facility] Comment on above: Performed By: #### C VENKAT CP, LIP ####[address] [place] [address] Lab Director: Murtaza Arceo MD Potassium [Moles/Vol] 4.7 mmol/L Normal 3.7-5.3 [facility] Comment on above: Performed By: #### C VENKTA CP, LIP ####[address] , [place] [phone] Director: Murtaza Arceo MD Protein [Mass/Vol] 7.6 g/dL Normal 6.6-8.7 [facility] Comment on above: Performed By: #### C VENKAT CP, LIP ####[address] [place] [address] Lab Director: Murtaza Arceo MD Sodium [Moles/Vol] 137 mmol/L Normal 136-145 [facility] Comment on above: Performed By: #### C VENKAT CP, LIP ####[address] [place] [address] Lab Director: Murtaza Arceo MD Urea nitrogen [Mass/Vol] 12 mg/dL Normal 6-20 [facility] Comment on above: Performed By: #### C DP, CP, LIP ####[address] [place] [address] Lab Director: Murtaza Arceo MD [facility] Metabolic [facility] 06-22-2025 Albumin [Mass/Vol] 4.4 g/dL 3.5 - 5.2 g/dL [facility] Albumin/Globulin [Mass ratio] 1.4 {ratio} 1.0 - 2.5 [facility] ALP [Catalytic activity/Vol] 106 U/L High 35 - 104 U/L [facility] ALT [Catalytic activity/Vol] 48 U/L High 10 - 35 U/L [facility] Anion gap [Moles/Vol] 15 mmol/L 9 - 16 mmol/L [facility] AST [Catalytic activity/Vol] 56 U/L High 10 - 35 U/L [facility] Bilirubin [Mass/Vol] 0.5 mg/dL 0.00 - 1.20 mg/dL [facility] Calcium [Mass/Vol] 9.8 mg/dL 8.6 - 10. 4 mg/dL [facility] Chloride [Moles/Vol] 100 mmol/L 98 - 10 7 mmol/L [facility] CO2 [Moles/Vol] 22 mmol/L 20 - 31 mmol/L [facility] Creatinine [Mass/Vol] 0.6 mg/dL 0.50 - 0.90 mg/dL [facility] Est, Glom Gustabot Rate - PINF [facility] Comment on above: These results are not [...] that affects renal tubular secretion. Glucose [Mass/Vol] 300 mg/dL High 74 - 99 mg/dL [facility] Interpretation and review of laboratory results Abnormal [facility] Potassium [Moles/Vol] 4.7 mmol/L 3.7 - 5.3 mmol/L [facility] Protein [Mass/Vol] 7.6 g/dL 6.6 - 8.7 g/dL [facility] Sodium [Moles/Vol] 137 mmol/L 136 - 145 mmol/L [facility] Urea nitrogen [Mass/Vol] 12 mg/dL 6 - 20 mg/dL [facility] Urea nitrogen/Creatinine [Mass ratio] 20 mg/mg 9 - 20 [facility] Lactic Acidon 06-22-2025 Lactate [Moles/Vol] 2.9 mmol/L High 0.5-2.2 [facility] Comment on above: Performed By: #### C VENKAT, CP #### [facility] [address] [place] [address] Product Strategy Director: Murtaza Arceo MD Interpretation and review of laboratory results Abnormal [facility] Lactate (BldV) [Moles/Vol] 2.9 mmol/L High 0.5 - 2.2 mmol/L [facility] Lipaseon 06-22-2025 Interpretation and review of laboratory results Abnormal [facility] Lipase [Catalytic activity/Vol] 65 U/L High 13 - 60 U/L [facility] Lipase [Catalytic activity/Vol] 65 U/L High 13-60 [facility] Comment on above: Performed By: #### C ANA ROBLEDO, LIP ####[facility] [place] [address] Lab Director: Murtaza Arceo MD XR ABDOMEN (KUB) (SINGLE AP VIEW)on 06-22-2025 XR ABDOMEN (KUB) (SINGLE AP VIEW) EXAM: 1 VIEW XRAY OF THE ABDOMEN 06/22/2025 10:18:59 AM COMPARISON: None available. CLINICAL HISTORY: Abdominal pain and constipation. FINDINGS: BOWEL: Moderate retained fecal material suggesting constipation in the proper clinical setting. SOFT TISSUES: No opaque urinary calculi. BONES: No acute osseous abnormality. IMPRESSION: 1. Findings suggest constipation. Interpreted by: Armen Rose MD Signed by: Armen Rose MD 06/22/25 Final result Normal [facility] CBC with Auto Differentialon 06-13-2025 Basophils (Bld) [#/Vol] 0.04 10*3/uL [facility] Basophils/100 WBC (Bld) 0 % 0 - 2 % [facility] Eosinophils (Bld) [#/Vol] 0.10 10*3/uL [facility] Eosinophils/100 WBC (Bld) 1 % 1 - 4 % [facility] Erythrocyte distribution width (RBC) [Ratio] 12.6 % 11.8 - 14.4 % [facility] Hematocrit (Bld) [Volume fraction] 39.9 % 36.3 - 47.1 % [facility] Hemoglobin (Bld) [Mass/Vol] 13.7 g/dL 11.9 - 15.1 g/dL [facility] Immature granulocytes (Bld) [#/Vol] 0.05 10*3/uL [facility] Immature granulocytes/100 WBC (Bld) 1 % High 0 [facility] Interpretation and review of laboratory results Abnormal [facility] Lymphocytes/100 WBC (Bld) 32 % 24 - 43 % [facility] Lymphocytes/100 WBC (Bld) 3.39 % [facility] MCH (RBC) [Entitic mass] 30.5 pg 25.2 - 33.5 pg [facility] MCHC (RBC) [Mass/Vol] 34.3 g/dL 28.4 - 34.8 g/dL [facility] MCV (RBC) [Entitic vol] 88.9 fL 82.6 - 102.9 fL [facility] Monocytes/100 WBC (Bld) 5 % 3 - 12 % [facility] Monocytes/100 WBC (Bld) 0.56 % [facility] Neutrophils/100 WBC (Bld) 61 % 36 - 65 % [facility] Nucleated RBC/100 WBC (Bld) [Ratio] 0.0 % 0.0 per 100 WBC [facility] Platelet mean volume (Bld) [Entitic vol] 10.6 fL 8.1 - 13.5 fL [facility] Platelets (Bld) [#/Vol] 314 10*3/uL [facility] RBC (Bld) [#/Vol] 4.49 10*6/uL 3.95 - 5.1 1 m/uL [facility] Segmented neutrophils/100 WBC (Bld) 6.59 % [facility] WBC other (Bld) [#/Vol] 10.7 [facility] CBC with Diffon 06-13-2025 Abs. Basophil 0.04 k/uL Normal 0.00-0.20 [facility] Comment on above: Performed By: #### C DP, CP #### [facility] [address] [place], [place] [address] Product Strategy Director: Murtaza Arceo MD Abs.Imm.Granulocyte 0.05 k/uL Normal 0.00-0.30 [facility] Comment on above: Performed By: #### C DP, CP #### [address] [address] Product Strategy Director: Murtaza Arceo MD Abs.Neutrophil (Seg) 6.59 k/uL Normal 1.50-8.10 [facility] Comment on above: Performed By: #### C DP, CP #### [address] [address] Product Strategy Director: Murtaza Arceo MD Basophils/100 WBC (Bld) 0 % Normal 0-2 [facility] Comment on above: Performed By: #### C DP, CP #### [address] [place] [id number] Product Strategy Director: Murtaza Arceo MD Eosinophils (Bld) [#/Vol] 0.10 10*3/uL Normal 0.00-0.44 [facility] Comment on above: Performed By: #### C DP, CP #### [address] [address] Product Strategy Director: Murtaza Arceo MD Eosinophils/100 WBC (Bld) 1 % Normal 1-4 [facility] Comment on above: Performed By: #### C DP, CP #### [address] [place], [place] [address] Product Strategy Director: Murtaza Arceo MD Erythrocyte distribution width (RBC) [Ratio] 12.6 % Normal 11.8-14.4 [facility] Comment on above: Performed By: #### C DP, CP #### [address] [place]in, [facility] Product Strategy Director: Murtaza Arceo MD Hematocrit (Bld) [Volume fraction] 39.9 % Normal 36.3-47.1 [facility] Comment on above: Performed By: #### C DP, CP #### [address] Yin, [facility]83 Product Strategy Director: Murtaza Arceo MD Hemoglobin (Bld) [Mass/Vol] 13.7 g/dL Normal 11.9-15.1 [facility] Comment on above: Performed By: #### C DP, CP #### [address] Yin, [facility]83 Product Strategy Director: Murtaza Arceo MD Immature granulocytes/100 WBC (Bld) 1 % High 0 [facility] Comment on above: Performed By: #### C DP, CP #### [address] Yin, [facility]83 Product Strategy Director: Murtaza Arceo MD Lymphocytes (Bld) [#/Vol] 3.39 10*3/uL Normal 1.10-3.70 [facility] Comment on above: Performed By: #### C DP, CP #### [facility] [address] [place] [address] Dr. Yin, [facility]83 Product Strategy Director: Murtaza Arceo MD Lymphocytes/100 WBC (Bld) 32 % Normal 24-43 [facility] Comment on above: Performed By: #### C DP, CP #### [facility] [address] [place] [address] Dr. Yin, [place] [phone] Product Strategy Director: Murtaza Arceo MD MCH (RBC) [Entitic mass] 30.5 pg Normal 25.2-33.5 [facility] Comment on above: Performed By: #### C DP, CP #### [address] [place]in, [place] 132[address]83 Product Strategy Director: Murtaza Arceo MD MCHC (RBC) [Mass/Vol] 34.3 g/dL Normal 28.4-34.8 [facility] Comment on above: Performed By: #### C DP, CP #### [address] [place] [address] Product Strategy Director: Murtaza Arceo MD MCV (RBC) [Entitic vol] 88.9 fL Normal 82.6-102.9 [facility] Comment on above: Performed By: #### C DP, CP #### [address] Yin, [facility]83 Product Strategy Director: Murtaza Arceo MD Monocytes (Bld) [#/Vol] 0.56 10*3/uL Normal 0.10-1.20 [facility] Comment on above: Performed By: #### C DP, CP #### [address] Yin, [place] [id number] Product Strategy Director: Murtaza Arceo MD Monocytes/100 WBC (Bld) 5 % Normal 3-12 [facility] Comment on above: Performed By: #### C DP, CP #### [address] [place]in, [facility]83 Product Strategy Director: Murtaza Arceo MD Neutrophil (Seg) 61 % Normal 36-65 [facility] Comment on above: Performed By: #### C DP, CP #### [address] [place], [place] [phone] Product Strategy Director: Murtaza Arceo MD NRBC Automated 0.0 per 100 WBC Normal 0.0 [facility] Comment on above: Performed By: #### C DP, CP #### [facility] [address] [place], [place] [id number] Product Strategy Director: Murtaza Arceo MD Platelet mean volume (Bld) [Entitic vol] 10.6 fL Normal 8.1-13.5 [facility] Comment on above: Performed By: #### C DP, CP #### [facility] [address] [place], [facility]83 Product Strategy Director: Murtaza Arceo MD Platelets (Bld) [#/Vol] 314 10*3/uL Normal 138-453 [facility] Comment on above: Performed By: #### C DP, CP #### [facility] [address] [place] [address] Product Strategy Director: Murtaza Arceo MD RBC (Bld) [#/Vol] 4.49 10*6/uL Normal 3.95-5.11 [facility] Comment on above: Performed By: #### C DP, CP #### [facility] [address] [place], [facility]83 Product Strategy Director: Murtaza Arceo MD WBC (Bld) [#/Vol] 10.7 10*3/uL Normal 3.5-11.3 [facility] Comment on above: Performed By: #### C DP, CP #### [facility] [address] [place], [facility]83 Product Strategy Director: Murtaza Arceo MD [facility] 06-13-2025 Albumin [Mass/Vol] 4.0 g/dL 3.5 - 5.2 g/dL [facility] Albumin/Globulin [Mass ratio] 1.4 {ratio} 1.0 - 2.5 [facility] ALP [Catalytic activity/Vol] 95 U/L 35 - 104 U/L [facility] ALT [Catalytic activity/Vol] 37 U/L High 10 - 35 U/L [facility] Anion gap [Moles/Vol] 18 mmol/L High 9 - 16 mmol/L [facility] AST [Catalytic activity/Vol] 51 U/L High 10 - 35 U/L [facility] Bilirubin [Mass/Vol] 0.4 mg/dL 0.00 - 1.20 mg/dL [facility] Calcium [Mass/Vol] 9.1 mg/dL 8.6 - 10. 4 mg/dL [facility] Chloride [Moles/Vol] 99 mmol/L 98 - 10 7 mmol/L [facility] CO2 [Moles/Vol] 20 mmol/L 20 - 31 mmol/L [facility] Creatinine [Mass/Vol] 1.0 mg/dL High 0.50 - 0.90 mg/dL [facility] Est, Glom Filt Rate 77 - PINF [facility] Comment on above: These results are not [...] that affects renal tubular secretion. Glucose [Mass/Vol] 373 mg/dL High 74 - 99 mg/dL [facility] Interpretation and review of laboratory results Abnormal [facility] Potassium [Moles/Vol] 4.1 mmol/L 3.7 - 5.3 mmol/L [facility] Protein [Mass/Vol] 6.8 g/dL 6.6 - 8.7 g/dL [facility] Sodium [Moles/Vol] 137 mmol/L 136 - 145 mmol/L [facility] Urea nitrogen [Mass/Vol] 10 mg/dL 6 - 20 mg/dL [facility] Urea nitrogen/Creatinine [Mass ratio] 10 mg/mg 9 - 20 [facility] COVID-19, Rapidon 06-13-2025 SARS-CoV-2 (COVID-19) RdRp gene ABRAHAM+probe Ql (Resp) Not detected Not Detected [facility] Comment on above: Rapid NAAT: The specimen [...] the sole basis for patient management decisions. Methodology: Isothermal Nucleic Acid Amplification Specimen Description .NASOPHARYNGEAL SWAB [facility] Comp Metabolic Profon 2024 Albumin [Mass/Vol] 4.0 g/dL Normal 3.5-5.2 [facility] Comment on above: Performed By: #### C DP, CP #### [facility] [address] [place] [address] [place] [address] Product Strategy Director: Murtaza Arceo MD Albumin/Glob Ratio 1.4 Normal 1.0-2.5 [facility] Comment on above: Performed By: #### C DP, CP #### [address] [place] [id number] Product Strategy Director: Murtaza Arceo MD Alkaline Phos 95 U/L Normal 35-104 [facility] Comment on above: Performed By: #### C DP, CP #### [address] [place] [phone] Product Strategy Director: Murtaza Acreo MD ALT [Catalytic activity/Vol] 37 U/L High 10-35 [facility] Comment on above: Performed By: #### C DP, CP #### [facility] [address] [place] [address] Product Strategy Director: Murtaza Arceo MD Anion gap [Moles/Vol] 18 mmol/L High 9-16 [facility] Comment on above: Performed By: #### C DP, CP #### [facility] [address] [place], [place] [phone] Product Strategy Director: Murtaza Arceo MD AST [Catalytic activity/Vol] 51 U/L High 10-35 [facility] Comment on above: Performed By: #### C DP, CP #### [facility] [address] [place], [place] [phone] Product Strategy Director: Murtaza Arceo MD Bilirubin [Mass/Vol] 0.4 mg/dL Normal 0.00-1.20 [facility] Comment on above: Performed By: #### C DP, CP #### [facility] [address] [place], [place] [phone] Product Strategy Director: Murtaza Arceo MD BUN/CRE Ratio 10 Normal 9-20 [facility] Comment on above: Performed By: #### C DP, CP #### [facility] [address] [place], [place] 8164983 Product Strategy Director: Murtaza Arceo MD Calcium [Mass/Vol] 9.1 mg/dL Normal 8.6-10.4 [facility] Comment on above: Performed By: #### C DP, CP #### [address] [place], [place] [id number] Product Strategy Director: Murtaza Arceo MD Chloride [Moles/Vol] 99 mmol/L Normal 98-107 [facility] Comment on above: Performed By: #### C DP, CP #### [facility] [address] [place], [place] 6793883 Product Strategy Director: Murtaza Arceo MD CO2 [Moles/Vol] 20 mmol/L Normal 20-31 [facility] Comment on above: Performed By: #### C DP, CP #### [facility] [address] [place], [place] 7140583 Product Strategy Director: Murtaza Arceo MD Creatinine [Mass/Vol] 1.0 mg/dL High 0.50-0.90 [facility] Comment on above: Performed By: #### C DP, CP #### [facility] [address] [place] [address] [place] [address] Product Strategy Director: Murtaza Arceo MD GFR/1.73 sq M.predicted among non-blacks MDRD (S/P/Bld) [Vol rate/Area] 77 mL/min/{1.73_m2} Normal >60 [facility] Comment on above: Result Comment: These [...] secretion. Performed By: #### C DP, CP #### [facility] [address] [place] [address] [place] [address] Product Strategy Director: Murtaza Arceo MD Glucose [Mass/Vol] 373 mg/dL High 74-99 [facility] Comment on above: Performed By: #### C DP, CP #### [address] [place] [address] Product Strategy Director: Murtaza Arcoe MD Potassium [Moles/Vol] 4.1 mmol/L Normal 3.7-5.3 [facility] Comment on above: Performed By: #### C DP, CP #### [address] [place] [address] Product Strategy Director: Murtaza Arceo MD Protein [Mass/Vol] 6.8 g/dL Normal 6.6-8.7 [facility] Comment on above: Performed By: #### C DP, CP #### [address] [place] [address] Product Strategy Director: Murtaza Arceo MD Sodium [Moles/Vol] 137 mmol/L Normal 136-145 [facility] Comment on above: Performed By: #### C DP, CP #### [facility] [address] [place] [address] Product Strategy Director: Murtaza Arceo MD Urea nitrogen [Mass/Vol] 10 mg/dL Normal 6-20 [facility] Comment on above: Performed By: #### C DP, CP #### [facility] [address] [place] [address] Product Strategy Director: Murtaza Arceo MD [id number] 06-13-2025 SARS-CoV-2 (COVID-19) RNA ABRAHAM+probe Ql (Unsp spec) Not detected Normal NOTDET [facility] Comment on above: Result Comment: Rapid NAAT: The specimen is NEGATIVE for [...] the sole basis for patient management decisions. Methodology: Isothermal Nucleic Acid Amplification Performed By: #### C DP, CP #### [facility] [address] [place] [address] Product Strategy Director: Murtaza Arceo MD XR CHEST (2 VW)on 06-13-2025 XR CHEST (2 VW) EXAM: 2 VIEW(S) XRAY OF THE CHEST 06/13/2025 08:19:59 PM COMPARISON: 09/17/2023 CLINICAL HISTORY: Shortness of Breath. FINDINGS: LUNGS AND PLEURA: No focal pulmonary opacity. No pulmonary edema. No pleural effusion. No pneumothorax. HEART AND MEDIASTINUM: No acute abnormality of the cardiac and mediastinal silhouettes. BONES AND SOFT TISSUES: No acute osseous abnormality. IMPRESSION: 1. No acute process. Interpreted by: Guy Olvera MD Signed by: Guy Olvera MD 06/13/25 Final result Normal [facility] XR Chest 2 Viewson 1. No acute process. [facility] EXAM: 2 VIEW(S) XRAY OF THE CHEST 06/13/2025 08:19:59 PM COMPARISON: 09/17/2023 CLINICAL HISTORY: Shortness of Breath. FINDINGS: LUNGS AND PLEURA: No focal pulmonary opacity. No pulmonary edema. No pleural effusion. No pneumothorax. HEART AND MEDIASTINUM: No acute abnormality of the cardiac and mediastinal silhouettes. BONES AND SOFT TISSUES: No acute osseous abnormality. [facility] Guy Olvera MD - 06/13/2025 EXAM: 2 VIEW(S) XRAY OF THE CHEST 06/13/2025 08:19:59 PM COMPARISON: 09/17/2023 CLINICAL HISTORY: Shortness of Breath. FINDINGS: LUNGS AND PLEURA: No focal pulmonary opacity. No pulmonary edema. No pleural effusion. No pneumothorax. HEART AND MEDIASTINUM: No acute abnormality of the cardiac and mediastinal silhouettes. BONES AND SOFT TISSUES: No acute osseous abnormality. IMPRESSION: 1. No acute process. [facility] Radiology Study observation (narrative) [facility] XR Chest 2 ViewsOrdered By: Guy Olvera on 06-13-2025 [facility] Work Phone: CNCOon 05-06-2025 CNCO Letter Text Normal [facility] CNPNon 04-23-2025 [facility] GAEL RUBY ([id number]) 1995 F Date Time Provider Department 04/23/25 YAJAIRA LACKEY [facility] During your visit today, we recorded the following information about you: Dixie Grimaldo RN 04/23/2025 9:02 AM Signed Prior Authorization initiated thru [employer] /[place] Code: H9VFES Awaiting response Insurance: [employer] Medicaid ID: [id number] RxBIN: [id number] RxPCN:OHRXPROD RxGroup: Tried and failed Patient has been being treated with Gimoti/Metoclopramide Nasal [place] since 12/02/2024 and it works best for [...] approved previously. Awaiting response [place] Medicaid ID# [id number] Rx BIN [id number] Rx PCN OHRXPROD Patient has tried oral Reglan in the past and with gastroparesis, diabetes and nausea/vomiting oral Reglan was not effective. Karla Mcnally RN 05/06/2025 12:04 PM Signed Received another DENIAL for Gimoti renewal on CMM with [place] [id number], . Spoke with [employer] on denial and appeal letter written and faxed to [place] [employer] with supporting documents to try and get re approval for Gimot. Faxed to Appeals at [place] [employer] at [phone]. Fax verification received. Awaiting response (paperwork is in pending cases file) Karla Mcnally RN 05/20/2025 10:53 AM Signed Fax received from [facility] with DENIAL of appeal for Gimoti. Denial appeal letter scanned into patient's chart. Case# [id number] ID# [id number] Called [place] [employer]/[facility] at [phone] for Peer to Peer. Spoke with Mina, [...] since unable to get Gimoti re approved. Karla Mcnally RN 05/26/2025 2:58 PM Signed Completed another PA for Gimoti on ON LICENSE OF [facility] with [place] [employer] and will see what outcome is received. Awaiting response Karla Mcnally RN 05/27/2025 1:58 PM Signed PA for Gimoti came back again with Denial. Patient is aware of denial. Patient was taking oral Reglan and she states it did help but the Gimoti worked better. Patient aware of unable to get Gimoti approved. Will be willing to try the oral Reglan again if that is the option for her. Dr Lackey: Please advise as to what you would like her to take since unable to get Gimoti re approved. Please advise Karla Mcnally RN 05/27/2025 2:21 PM Signed She is Medicaid so the $20 does not apply. Must be commercial to be eligible for the $20 copay. Exhausted all appeals options Yajaira Lackey DO 05/27/2025 2:23 PM Signed Addended by: YAJAIRA LACKEY on: 05/27/2025 02:23 PM Modules accepted: Orders Karla Mcnally RN 05/27/2025 2:40 PM Signed Called patient and received an unidentified voicemail. Message left for patient that Oral Reglan was sent to her pharmacy since we could not get the nasal for approved. Instructed to call office with any questions or concerns. Allergies As of Date: 04/23/2025 Noted Allergy [...] Preauthorization [914] Cmt: PA for Gimoti renewal Order(s):metoclopramid e HCl (REGLAN) 10 mg tabletTake 1 tablet by mouth four times a day as needed.Disp: 120 tabletRfl: 5 Prescriptions as of 05/27/2025 - metoclopramide HCl (REGLAN) 10 mg tablet Take 1 tablet by (more content not included)... Normal [facility] CNOVon 02-17-2025 CN Office Visit ([facility] ) GAEL RUBY ([id number]) 1995 F Date Time Provider Department 02/17/25 1:[address] [facility] During your visit today, we recorded the following information about you: Pulse Blood pressure 82/minute 119/85 Best Reynoso MD 02/17/2025 1:58 PM Signed Referring Or Consulting Physician: Yajaira Lackey [facility] [address] [facility] [id number] CHIEF COMPLAINT: pain in my upper abdomen [...] events? (no) Illicit drug use? (cannabis) -------- Stella Harris MA February 17, 2025 Patient [...] (GIMOTI) 15 mg/spray nasal spray Use 1 [place] in the nose four times daily. No [...] Minimal depress (more content not included)... Normal [facility] Basic Metabolic Profon 02-12 Anion gap [Moles/Vol] 12 mmol/L Normal 9-16 [facility] Comment on above: Performed By: #### L IVP, CDP, BMP, LIP #### [employer] [address] [place] [address] Product Strategy Director: Rishabh Mendieta MD Calcium [Mass/Vol] 9.5 mg/dL Normal 8.6-10.4 [facility] Comment on above: Performed By: #### L IVP, CDP, BMP, LIP #### [employer] [address] [place] [address] Product Strategy Director: Rishabh Mendieta MD Chloride [Moles/Vol] 104 mmol/L Normal 98-107 [facility] Comment on above: Performed By: #### L IVP, CDP, BMP, LIP #### [employer] [address] [place] [address] Product Strategy Director: Rishabh Mendieta MD CO2 [Moles/Vol] 22 mmol/L Normal 20-31 [facility] Comment on above: Performed By: #### L IVP, CDP, BMP, LIP #### [employer] [address] [place] [address] Product Strategy Director: Rishabh Mendieta MD Creatinine [Mass/Vol] 0.7 mg/dL Normal 0.6-0.9 [facility] Comment on above: Performed By: #### L IVP, CDP, BMP, LIP #### [employer] [address] [place] [address] Product Strategy Director: Rishabh Mendieta MD GFR/1.73 sq M.predicted among non-blacks MDRD (S/P/Bld) [Vol rate/Area] mL/min/{1.73_m2} Normal >60 [facility] Comment on above: Result Comment: These [...] #### L IVP, CDP, BMP, LIP #### [facility] [employer] [address] [place] [address] Product Strategy Director: Rishabh Mendieta MD Glucose [Mass/Vol] 259 mg/dL High 74-99 [facility] Comment on above: Performed By: #### L IVP, CDP, BMP, LIP #### [facility] [employer] [address] [place] [address] Product Strategy Director: Rishabh Mendieta MD Potassium [Moles/Vol] 4.1 mmol/L Normal 3.7-5.3 [facility] Comment on above: Performed By: #### L IVP, CDP, BMP, LIP #### [facility] [address] [place] [address] Product Strategy Director: Rishabh Mendieta MD Sodium [Moles/Vol] 138 mmol/L Normal 136-145 [facility] Comment on above: Performed By: #### L IVP, CDP, BMP, LIP #### [facility] [address] [place] [address] Product Strategy Director: Rishabh Mendieta MD Urea nitrogen [Mass/Vol] 11 mg/dL Normal 6-20 [facility] Comment on above: Performed By: #### L IVP, CDP, BMP, LIP #### [address] [address] Product Strategy Director: Rishabh Mendieta MD CBC with Diffon 02-12-2025 Abs. Basophil 0.05 k/uL Normal 0.00-0.20 [facility] Comment on above: Performed By: #### L IVP, CDP, BMP, LIP #### [place] [address] Product Strategy Director: Rishabh Mendieta MD Abs.Imm.Granulocyte 0.05 k/uL Normal 0.00-0.30 [facility] Comment on above: Performed By: #### L IVP, CDP, BMP, LIP #### [place] [address] Product Strategy Director: Rishabh Mendieta MD Abs.Neutrophil (Seg) 7.21 k/uL Normal 1.50-8.10 [facility] Comment on above: Performed By: #### L IVP, CDP, BMP, LIP #### [place] [address] Product Strategy Director: Rishabh Mendieta MD Basophils/100 WBC (Bld) 0 % Normal 0-2 [facility] Comment on above: Performed By: #### L IVP, CDP, BMP, LIP #### [place] [address] Product Strategy Director: Rishabh Mendieta MD Eosinophils (Bld) [#/Vol] 0.17 10*3/uL Normal 0.00-0.44 [facility] Comment on above: Performed By: #### L IVP, CDP, BMP, LIP #### [place] [address] Product Strategy Director: Rishabh Mendieta MD Eosinophils/100 WBC (Bld) 1 % Normal 1-4 [facility] Comment on above: Performed By: #### L IVP, CDP, BMP, LIP #### [facility] [employer] [address] [place] [address] Product Strategy Director: Rishabh Mendieta MD Erythrocyte distribution width (RBC) [Ratio] 13.5 % Normal 11.8-14.4 [facility] Comment on above: Performed By: #### L IVP, CDP, BMP, LIP #### [facility] [employer] [address] [place] [address] Product Strategy Director: Rishabh Mendieta MD Hematocrit (Bld) [Volume fraction] 41.2 % Normal 36.3-47.1 [facility] Comment on above: Performed By: #### L IVP, CDP, BMP, LIP #### [facility] [employer] [address] [place] [address] Product Strategy Director: Rishabh Mendieta MD Hemoglobin (Bld) [Mass/Vol] 14.1 g/dL Normal 11.9-15.1 [facility] Comment on above: Performed By: #### L IVP, CDP, BMP, LIP #### [facility] [employer] [address] [place] [address] Product Strategy Director: Rishabh Mendieta MD Immature granulocytes/100 WBC (Bld) 0 % Normal 0 [facility] Comment on above: Performed By: #### L IVP, CDP, BMP, LIP #### [facility] [employer] [address] [place] [address] Product Strategy Director: Rishabh Mendieta MD Lymphocytes (Bld) [#/Vol] 4.01 10*3/uL High 1.10-3.70 [facility] Comment on above: Performed By: #### L IVP, CDP, BMP, LIP #### [facility] [employer] [address] [place] [address] Product Strategy Director: Rishabh Mendieta MD Lymphocytes/100 WBC (Bld) 33 % Normal 24-43 [facility] Comment on above: Performed By: #### L IVP, CDP, BMP, LIP #### [address] [address] Product Strategy Director: Rishabh Mendieta MD MCH (RBC) [Entitic mass] 30.3 pg Normal 25.2-33.5 [facility] Comment on above: Performed By: #### L IVP, CDP, BMP, LIP #### [address] [address] Product Strategy Director: Rishabh Mendieta MD MCHC (RBC) [Mass/Vol] 34.2 g/dL Normal 28.4-34.8 [facility] Comment on above: Performed By: #### L IVP, CDP, BMP, LIP #### [address] [address] Product Strategy Director: Rishabh Mendieta MD MCV (RBC) [Entitic vol] 88.6 fL Normal 82.6-102.9 [facility] Comment on above: Performed By: #### L IVP, CDP, BMP, LIP #### [address] [address] Product Strategy Director: Rishabh Mendieta MD Monocytes (Bld) [#/Vol] 0.70 10*3/uL Normal 0.10-1.20 [facility] Comment on above: Performed By: #### L IVP, CDP, BMP, LIP #### [address] [address] Product Strategy Director: Rishabh Mendieta MD Monocytes/100 WBC (Bld) 6 % Normal 3-12 [facility] Comment on above: Performed By: #### L IVP, CDP, BMP, LIP #### [address] [address] Product Strategy Director: Rishabh Mendieta MD Neutrophil (Seg) 60 % Normal 36-65 [facility] Comment on above: Performed By: #### L IVP, CDP, BMP, LIP #### [address] [address] Product Strategy Director: Rishabh Mendieta MD NRBC Automated 0.0 per 100 WBC Normal 0.0 [facility] Comment on above: Performed By: #### L IVP, CDP, BMP, LIP #### [address] [address] Product Strategy Director: Rishabh Mendieta MD Platelet mean volume (Bld) [Entitic vol] 9.8 fL Normal 8.1-13.5 [facility] Comment on above: Performed By: #### L IVP, CDP, BMP, LIP #### [address] [address] Product Strategy Director: Rishabh Mendieta MD Platelets (Bld) [#/Vol] 315 10*3/uL Normal 138-453 [facility] Comment on above: Performed By: #### L IVP, CDP, BMP, LIP #### [address] [address] Product Strategy Director: Rishabh Mendieta MD RBC (Bld) [#/Vol] 4.65 10*6/uL Normal 3.95-5.11 [facility] Comment on above: Performed By: #### L IVP, CDP, BMP, LIP #### [address] [address] Product Strategy Director: Rishabh Mendieta MD WBC (Bld) [#/Vol] 12.2 10*3/uL High 3.5-11.3 [facility] Comment on above: Performed By: #### L IVP, CDP, BMP, LIP #### [address] [address] Product Strategy Director: Rishabh Mendieta MD Lipaseon 02-12-2025 Lipase [Catalytic activity/Vol] 86 U/L High 13-60 [facility] Comment on above: Performed By: #### L IVP, CDP, BMP, LIP #### [facility] [employer] [address] [place] [address] Product Strategy Director: Rishabh Mendieta MD Liver Profileon 02-12-2025 Albumin [Mass/Vol] 4.1 g/dL Normal 3.5-5.2 [facility] Comment on above: Performed By: #### L IVP, CDP, BMP, LIP #### [facility] [address] [place] [address] Product Strategy Director: Rishabh Mendieta MD Albumin/Glob Ratio 1.3 Normal 1.0-2.5 [facility] Comment on above: Performed By: #### L IVP, CDP, BMP, LIP #### [facility] [employer] [address] [place] [address] Product Strategy Director: Rishabh Mendieta MD Alkaline Phos 88 U/L Normal 35-104 [facility] Comment on above: Performed By: #### L IVP, CDP, BMP, LIP #### [facility] [employer] [address] [place] [address] Product Strategy Director: Rishabh Mendieta MD ALT [Catalytic activity/Vol] 44 U/L High 10-35 [facility] Comment on above: Performed By: #### L IVP, CDP, BMP, LIP #### [facility] [employer] [address] [place] [address] Product Strategy Director: Rishabh Mendieta MD AST [Catalytic activity/Vol] 35 U/L Normal 10-35 [facility] Comment on above: Performed By: #### L IVP, CDP, BMP, LIP #### [facility] [employer] [address] [place] [address] Product Strategy Director: Rishabh Mendieta MD Bilirubin [Mass/Vol] 0.5 mg/dL Normal 0.0-1.2 [facility] Comment on above: Performed By: #### L IVP, CDP, BMP, LIP #### [facility] [place] [address] Product Strategy Director: Rishabh Mendieta MD Bilirubin, Indirect 0.3 mg/dL Normal 0.0-1.0 [facility] Comment on above: Performed By: #### L IVP, CDP, BMP, LIP #### [facility] [address] [place] [address] Product Strategy Director: Rishabh Mendieta MD Bilirubin.indirect [Mass/Vol] 0.2 mg/dL Normal 0.0-0.2 [facility] Comment on above: Performed By: #### L IVP, CDP, BMP, LIP #### [facility] [employer] [address] [place] [address] Product Strategy Director: Rishabh Mendieta MD Globulin (S) [Mass/Vol] 3.2 g/dL Normal [facility] Comment on above: Performed By: #### L IVP, CDP, BMP, LIP #### [facility] [employer] [address] [place] [address] Product Strategy Director: Rishabh Mendieta MD Protein [Mass/Vol] 7.3 g/dL Normal 6.6-8.7 [facility] Comment on above: Performed By: #### L IVP, CDP, BMP, LIP #### [facility] [employer] [address] [place] [address] [phone] Product Strategy Director: Rishabh Mendieta MD CBC with Diffon 02-09-2025 Basophils (Bld) [#/Vol] 0.06 10*3/uL [facility] Basophils/100 WBC (Bld) 1 % 0 - 2 % [facility] Eosinophils (Bld) [#/Vol] 0.19 10*3/uL [facility] Eosinophils/100 WBC (Bld) 2 % 1 - 4 % [facility] Erythrocyte distribution width (RBC) [Ratio] 13.2 % 11.8 - 14.4 % [facility] Hematocrit (Bld) [Volume fraction] 42.4 % 36.3 - 47.1 % [facility] Hemoglobin (Bld) [Mass/Vol] 14.3 g/dL 11.9 - 15.1 g/dL [facility] Immature granulocytes (Bld) [#/Vol] 0.05 10*3/uL [facility] Immature granulocytes/100 WBC (Bld) 1 % High 0 [facility] Interpretation and review of laboratory results Abnormal [facility] Lymphocytes/100 WBC (Bld) 35 % 24 - 43 % [facility] Lymphocytes/100 WBC (Bld) 3.77 % High [facility] MCH (RBC) [Entitic mass] 30.2 pg 25.2 - 33.5 pg [facility] MCHC (RBC) [Mass/Vol] 33.7 g/dL 28.4 - 34.8 g/dL [facility] MCV (RBC) [Entitic vol] 89.5 fL 82.6 - 102.9 fL [facility] Monocytes/100 WBC (Bld) 5 % 3 - 12 % [facility] Monocytes/100 WBC (Bld) 0.57 % [facility] Neutrophils/100 WBC (Bld) 56 % 36 - 65 % [facility] Nucleated RBC/100 WBC (Bld) [Ratio] 0 % 0.0 per 100 WBC [facility] Platelet mean volume (Bld) [Entitic vol] 10 fL 8.1 - 13.5 fL [facility] Platelets (Bld) [#/Vol] 284 10*3/uL [facility] RBC (Bld) [#/Vol] 4.74 10*6/uL 3.95 - 5.1 1 m/uL [facility] Segmented neutrophils/100 WBC (Bld) 6.26 % [facility] WBC other (Bld) [#/Vol] 10.9 [facility] Abs. Basophil 0.06 k/uL Normal 0.00-0.20 [facility] Comment on above: Performed By: #### C DP, CP #### [facility] [address] [place], [facility]83 Product Strategy Director: Murtaza Arceo MD Abs.Imm.Granulocyte 0.05 k/uL Normal 0.00-0.30 [facility] Comment on above: Performed By: #### C DP, CP #### [address] [place], [facility]83 Product Strategy Director: Murtaza Arceo MD Abs.Neutrophil (Seg) 6.26 k/uL Normal 1.50-8.10 [facility] Comment on above: Performed By: #### C DP, CP #### [address] [place] [phone] Product Strategy Director: Murtaza Arceo MD Basophils/100 WBC (Bld) 1 % Normal 0-2 [facility] Comment on above: Performed By: #### C DP, CP #### [address] [place] [address] Product Strategy Director: Murtaza Arceo MD Eosinophils (Bld) [#/Vol] 0.19 10*3/uL Normal 0.00-0.44 [facility] Comment on above: Performed By: #### C DP, CP #### [address] [address] Product Strategy Director: Murtaza Arceo MD Eosinophils/100 WBC (Bld) 2 % Normal 1-4 [facility] Comment on above: Performed By: #### C DP, CP #### [address] [place], [facility]83 Product Strategy Director: Murtaza Arceo MD Erythrocyte distribution width (RBC) [Ratio] 13.2 % Normal 11.8-14.4 [facility] Comment on above: Performed By: #### C DP, CP #### [address] [place] [address] Product Strategy Director: Murtaza Arceo MD Hematocrit (Bld) [Volume fraction] 42.4 % Normal 36.3-47.1 [facility] Comment on above: Performed By: #### C DP, CP #### [facility] [address] [place], [place] [phone] Product Strategy Director: Murtaza Arceo MD Hemoglobin (Bld) [Mass/Vol] 14.3 g/dL Normal 11.9-15.1 [facility] Comment on above: Performed By: #### C DP, CP #### [facility] [address] [place] [address] Dr. [place], [place] [phone] Product Strategy Director: Murtaza Arceo MD Immature granulocytes/100 WBC (Bld) 1 % High 0 [facility] Comment on above: Performed By: #### C DP, CP #### [address] [place], [facility]83 Product Strategy Director: Murtaza Arceo MD Lymphocytes (Bld) [#/Vol] 3.77 10*3/uL High 1.10-3.70 [facility] Comment on above: Performed By: #### C DP, CP #### [address] [place], [place] [phone] Product Strategy Director: Murtaza Arceo MD Lymphocytes/100 WBC (Bld) 35 % Normal 24-43 [facility] Comment on above: Performed By: #### C DP, CP #### [facility] [address] [place] [address] Dr. [place], [place] [phone] Product Strategy Director: Murtaza Arceo MD MCH (RBC) [Entitic mass] 30.2 pg Normal 25.2-33.5 [facility] Comment on above: Performed By: #### C DP, CP #### [address] [place], [place] [phone] Product Strategy Director: Murtaza Arceo MD MCHC (RBC) [Mass/Vol] 33.7 g/dL Normal 28.4-34.8 [facility] Comment on above: Performed By: #### C DP, CP #### [facility] [address] [place], [place] [address] Product Strategy Director: Murtaza Arceo MD MCV (RBC) [Entitic vol] 89.5 fL Normal 82.6-102.9 [facility] Comment on above: Performed By: #### C DP, CP #### [address] [place], [place] [address] Product Strategy Director: Murtaza Arceo MD Monocytes (Bld) [#/Vol] 0.57 10*3/uL Normal 0.10-1.20 [facility] Comment on above: Performed By: #### C DP, CP #### [address] [place], [place] [address] Product Strategy Director: Murtaza Arceo MD Monocytes/100 WBC (Bld) 5 % Normal 3-12 [facility] Comment on above: Performed By: #### C DP, CP #### [address] [place], [place] [address] Product Strategy Director: Murtaza Arceo MD Neutrophil (Seg) 56 % Normal 36-65 [facility] Comment on above: Performed By: #### C DP, CP #### [address] [place], [place] [address] Product Strategy Director: Murtaza Arceo MD NRBC Automated 0.0 per 100 WBC Normal 0.0 [facility] Comment on above: Performed By: #### C DP, CP #### [address] [place], [place] [address] Product Strategy Director: Murtaza Arceo MD Platelet mean volume (Bld) [Entitic vol] 10.0 fL Normal 8.1-13.5 [facility] Comment on above: Performed By: #### C DP, CP #### [address] [place], [place] [phone] Product Strategy Director: Murtaza Arceo MD Platelets (Bld) [#/Vol] 284 10*3/uL Normal 138-453 [facility] Comment on above: Performed By: #### C DP, CP #### [facility] [address] [place], [place] [phone] Product Strategy Director: Murtaza Arceo MD RBC (Bld) [#/Vol] 4.74 10*6/uL Normal 3.95-5.11 [facility] Comment on above: Performed By: #### C DP, CP #### [facility] [address] [place], [place] [phone] Product Strategy Director: Murtaza Arceo MD WBC (Bld) [#/Vol] 10.9 10*3/uL Normal 3.5-11.3 [facility] Comment on above: Performed By: #### C DP, CP #### [address] [place], [place] [phone] Product Strategy Director: Murtaza Arceo MD [facility] 02-09-2025 Albumin [Mass/Vol] 4.3 g/dL 3.5 - 5.2 g/dL [facility] Albumin/Globulin [Mass ratio] 1.4 {ratio} 1.0 - 2.5 [facility] ALP [Catalytic activity/Vol] 88 U/L 35 - 104 U/L [facility] ALT [Catalytic activity/Vol] 44 U/L High 10 - 35 U/L [facility] Anion gap [Moles/Vol] 14 mmol/L 9 - 16 mmol/L [facility] AST [Catalytic activity/Vol] 41 U/L High 10 - 35 U/L [facility] Bilirubin [Mass/Vol] 0.4 mg/dL 0.00 - 1.20 mg/dL [facility] Calcium [Mass/Vol] 9.8 mg/dL 8.6 - 10. 4 mg/dL [facility] Chloride [Moles/Vol] 101 mmol/L 98 - 10 7 mmol/L [facility] CO2 [Moles/Vol] 25 mmol/L 20 - 31 mmol/L [facility] Creatinine [Mass/Vol] 0.7 mg/dL 0.50 - 0.90 mg/dL [facility] Amarilis Bailey - PINF [facility] Jessica [facility] Comment on above: These results are not [...] 172 mg/dL High 74 - 99 mg/dL [facility] Potassium [Moles/Vol] 4.1 mmol/L 3.7 - 5.3 mmol/L [facility] Protein [Mass/Vol] 7.4 g/dL 6.6 - 8.7 g/dL [facility] Sodium [Moles/Vol] 140 mmol/L 136 - 145 mmol/L [facility] Urea nitrogen [Mass/Vol] 15 mg/dL 6 - 20 mg/dL [facility] Urea nitrogen/Creatinine [Mass ratio] 21 mg/mg High 9 - 20 [facility] [address] ABDOMEN PELVIS W IV CONTR [place] 02-09-2025 CT ABDOMEN PELVIS W IV CONTRAST EXAMINATION: CT OF THE ABDOMEN AND PELVIS [...] soft tissue abnormality. IMPRESSION: No acute process. Interpreted by: Charly Wiggins MD Signed by: Charly Wiggins MD 02/09/25 Final result Normal [facility] CT Abdomen and Pelvis W cont rast Maurilio 02-09-2025 No acute process. [facility] RIS CONSOLIDATED EXAMINATION: CT OF THE ABDOMEN [...] No acute bone or soft tissue abnormality. [facility] CONSOLIDATED Charly Wiggins MD - 02/09/2025 EXAMINATION: [...] soft tissue abnormality. IMPRESSION: No acute process. [facility] Radiology Study observation (narrative) [facility] CT Abdomen and Pelvis W cont rast IVOrdered By: Charly Wiggins on 02-09-2025 [facility] Work Phone: Comp Metabolic Profon 2024 Albumin [Mass/Vol] 4.3 g/dL Normal 3.5-5.2 [facility] Comment on above: Performed By: #### C DP, CP #### [facility] [address] [place], [place] [phone] Product Strategy Director: Murtaza Arceo MD Albumin/Glob Ratio 1.4 Normal 1.0-2.5 [facility] Comment on above: Performed By: #### C DP, CP #### [facility] [address] [place] [address] Product Strategy Director: Murtaza Arceo MD Alkaline Phos 88 U/L Normal 35-104 [facility] Comment on above: Performed By: #### C DP, CP #### [facility] [address] [place] [address] Product Strategy Director: Murtaza Arceo MD ALT [Catalytic activity/Vol] 44 U/L High 10-35 [facility] Comment on above: Performed By: #### C DP, CP #### [facility] [address] [place] [address] Product Strategy Director: Murtaza Arceo MD Anion gap [Moles/Vol] 14 mmol/L Normal 9-16 [facility] Comment on above: Performed By: #### C DP, CP #### [address] [place], [place] [phone] Product Strategy Director: Murtaza Arceo MD AST [Catalytic activity/Vol] 41 U/L High 10-35 [facility] Comment on above: Performed By: #### C DP, CP #### [facility] [address] [place], [place] [phone] Product Strategy Director: Murtaza Arceo MD Bilirubin [Mass/Vol] 0.4 mg/dL Normal 0.00-1.20 [facility] Comment on above: Performed By: #### C DP, CP #### [facility] [address] [place], [place] [phone] Product Strategy Director: Murtaza Arceo MD BUN/CRE Ratio 21 High 9-20 [facility] Comment on above: Performed By: #### C DP, CP #### [facility] [address] [place], [place] [phone] Product Strategy Director: Murtaza Arceo MD Calcium [Mass/Vol] 9.8 mg/dL Normal 8.6-10.4 [facility] Comment on above: Performed By: #### C DP, CP #### [facility] [address] [place], [place] [phone] Product Strategy Director: Murtaza Arceo MD Chloride [Moles/Vol] 101 mmol/L Normal 98-107 [facility] Comment on above: Performed By: #### C DP, CP #### [address] [place], [place] [phone] Product Strategy Director: Murtaza Arceo MD CO2 [Moles/Vol] 25 mmol/L Normal 20-31 [facility] Comment on above: Performed By: #### C DP, CP #### [facility] [address] [place] [address] Product Strategy Director: Murtaza Arceo MD Creatinine [Mass/Vol] 0.7 mg/dL Normal 0.50-0.90 [facility] Comment on above: Performed By: #### C DP, CP #### [facility] [address] [place], [place] [phone] Product Strategy Director: Murtaza Arceo MD GFR/1.73 sq M.predicted among non-blacks MDRD (S/P/Bld) [Vol rate/Area] mL/min/{1.73_m2} Normal >60 [facility] Comment on above: Result Comment: These [...] secretion. Performed By: #### C DP, CP #### [facility] [address] [place] [address] [place] [address] Product Strategy Director: Murtaza Arceo MD Glucose [Mass/Vol] 172 mg/dL High 74-99 [facility] Comment on above: Performed By: #### C DP, CP #### [facility] [address] [place] [address] Dr. [place], [place] [phone] Product Strategy Director: Murtaza Arceo MD Potassium [Moles/Vol] 4.1 mmol/L Normal 3.7-5.3 [facility] Comment on above: Performed By: #### C DP, CP #### [address] [place], [place] [phone] Product Strategy Director: Murtaza Arceo MD Protein [Mass/Vol] 7.4 g/dL Normal 6.6-8.7 [facility] Comment on above: Performed By: #### C DP, CP #### [facility] [address] [place] [address] Dr. [place], [place] [phone] Product Strategy Director: Murtaza Arceo MD Sodium [Moles/Vol] 140 mmol/L Normal 136-145 [facility] Comment on above: Performed By: #### C DP, CP #### [facility] [address] [place] [address] Dr. [place], [place] [phone] Product Strategy Director: Murtaza Arceo MD Urea nitrogen [Mass/Vol] 15 mg/dL Normal 6-20 [facility] Comment on above: Performed By: #### C DP, CP #### [facility] [address] [place] [address] [place] [address] Product Strategy Director: Murtaza Arceo MD HCG, ,Urineon 02-09 Beta HCG ( test) Ql (U) Negative Normal NEG [facility] Comment on above: Result Comment: Spec imens with hCG levels near the threshold of the test (25 mIU/mL) may give a negative or indeterminate result. In such cases, another test should be performed with a new specimen in 48-72 hours. If early is suspected clinically in this setting, correlation with quantitative serum b-hCG level is suggested. [facility] has confirmed the use of plasma for this test. This has not been cleared or approved by the U.S. Food and Drug Administration. The FDA has determined that such clearance is not necessary. Performed By: #### U AX, CG, UMICAO #### [facility] [address] [place] [address] [place] [address] Product Strategy Director: Murtaza Arceo MD Lipaseon 02-09-2025 Lipase [Catalytic activity/Vol] 88 U/L High 13 - 60 U/L [facility] Lipase [Catalytic activity/Vol] 88 U/L High 13-60 [facility] Comment on above: Performed By: #### C DP, CP #### [address] [place] [address] Product Strategy Director: Murtaza Arceo MD Microscopic Urinalysison Epithelial cells LM.HPF (Urine sed) [#/Area] None [facility] RBC LM.HPF (Urine sed) [#/Area] None [facility] WBC LM.HPF (Urine sed) [#/Area] None [facility] No Panel Informationon 02-09 Interpretation and review of laboratory results Abnormal [facility] , Urineon HCG ( test) Ql (U) Negative NEGATIVE [facility] Comment on above: Specimens with hCG l evels near the threshold of the test (25 mIU/mL) may give a negative or indeterminate result. In such cases, another test should be performed with a new specimen in 48-72 hours. If early is suspected clinically in this setting, correlation with quantitative serum b-hCG level is suggested. [facility] has confirmed the use of plasma for this test. This has not been cleared or approved by the U.S. Food and Drug Administration. The FDA has determined that such clearance is not necessary. [facility] UA w/Reflex Cultureon 2024 Bilirubin, SemiQt,Ur Negative Normal NEG [facility] Comment on above: Performed By: #### U AX, [facility], UMICAO #### [facility] [address] [place] [address] [place] [address] Product Strategy Director: Murtaza Arceo MD Blood, Urine Negative Normal NEG [facility] Comment on above: Performed By: #### U AX, [facility], UMICAO #### [facility] [address] [place] [address] Dr. [place], [place] [phone] Product Strategy Director: Murtaza Arceo MD Clarity (U) Clear Normal CLEAR [facility] Comment on above: Performed By: #### U AX, [facility] UM[facility] #### [facility] [address] [place] [address] [place] [address] Product Strategy Director: Murtaza Arceo MD Color (U) Yellow Normal YEL [facility] Comment on above: Performed By: #### U AX, CG, UMICAO #### [facility] [address] [place] [address] Dr. [place], [place] [phone] Product Strategy Director: Murtaza Arceo MD Glucose Ql (U) 3+ mg/dL Abnormal NEG [facility] Comment on above: Performed By: #### U AX, CG, UMICAO #### [facility] [address] [place] [address] Dr. [place] [phone] Product Strategy Director: Murtaza Arceo MD Ketones Ql (U) Negative Normal NEG [facility] Comment on above: Performed By: #### U AX, UHCG, UMICAO #### [facility] [address] [place] [address] Dr. [place], [place] [phone] Product Strategy Director: Murtaza Arceo MD Leukocyte esterase Test strip Ql (U) Negative Normal NEG [facility] Comment on above: Performed By: #### U AX, UHCG, UMICAO #### [facility] [address] [place] [address] Dr. [place], [place] [phone] Product Strategy Director: Murtaza Arceo MD Nitrite,Ur Negative Normal NEG [facility] Comment on above: Performed By: #### U AX, UHCG, UMICAO #### [facility] [address] [place] [address] Dr. [place], [place] [phone] Product Strategy Director: Murtaza Arceo MD PH,Ur 6.0 Normal 5.0-9.0 [facility] Comment on above: Performed By: #### U AX, UHCG, UMICAO #### [facility] [address] [place] [address] Dr. [place], [place] [phone] Product Strategy Director: Murtaza Arceo MD Protein Ql (U) Negative Normal NEG [facility] Comment on above: Performed By: #### U AX, UHCG, UMICAO #### [facility] [address] [place] [address] Dr. [place], [place] [phone] Product Strategy Director: Murtaza Arceo MD Spec. Onyx,Ur <1.005 Low 1.010-1.020 [facility] Comment on above: Performed By: #### U AX, UHCG, UMICAO #### [facility] [address] [place] [address] Dr. [place], [place] [phone] Product Strategy Director: Murtaza Arceo MD Urobilinogen,Ur Normal Normal 0.0-1.0 [facility] Comment on above: Performed By: #### U AX, UHCG, UMICAO #### [facility] [address] [place] [address] Product Strategy Director: Murtaza Arceo MD Urinalysis with Reflex to Cu ltureon 02-09-2025 Bilirubin Ql (U) Negative NEGATIVE [facility] Clarity (U) Clear Clear [facility] Color (U) Yellow Yellow [facility] Glucose Test strip (U) [Mass/Vol] 3+ Abnormal NEGATIVE mg/dL [facility] Hemoglobin Auto test strip Ql (U) Negative NEGATIVE [facility] Interpretation and review of laboratory results Abnormal [facility] Ketones (U) [Mass/Vol] Negative NEGAT SIMA mg/dL [facility] Leukocyte esterase Test strip Ql (U) Negative NEGATIVE [facility] Nitrite Ql (U) Negative NEGATIVE [facility] [facility] pH (U) 6 [pH] 5.0 - 9.0 [facility] Protein (U) [Mass/Vol] Negative NEGAT SIMA mg/dL [facility] Specific gravity (U) [Rel density] Low 1.010 - 1.020 [facility] Urobilinogen Qn (U) Normal 0.0 - 1. 0 EU/dL [facility] Urinalysis,Microon 5 Epithelial cells LM Ql (Urine sed) None Normal 0-25 [facility] Comment on above: Performed By: #### U FREEDOM CCHEY SyedICAO #### [facility] [address] [place] [address] Product Strategy Director: Murtaza Arceo MD Urine RBC's None Normal 0-2 [facility] Comment on above: Performed By: #### U FREEDOM UHCG UMICAO #### [facility] [address] [place] [address] Product Strategy Director: Murtaza Arceo MD Urine WBC's None Normal 0-5 [facility] Comment on above: Performed By: #### U AX UHCG UMICAO #### [facility] [address] [place] [address] Product Strategy Director: Murtaza Arceo MD BMPon 02-05-2025 Anion gap [Moles/Vol] 15 mmol/L 9 - 16 mmol/L [facility] Calcium [Mass/Vol] 9.5 mg/dL 8.6 - 10. 4 mg/dL [facility] Chloride [Moles/Vol] 105 mmol/L 98 - 10 7 mmol/L [facility] CO2 [Moles/Vol] 22 mmol/L 20 - 31 mmol/L [facility] Creatinine [Mass/Vol] 0.7 mg/dL 0.50 - 0.90 mg/dL [facility] Est, Amarilis Montejoalex Rate - PINF [facility] Comment on above: These results are not [...] 101 mg/dL High 74 - 99 mg/dL [facility] Potassium [Moles/Vol] 3.6 mmol/L Low 3.7 - 5.3 mmol/L [facility] Sodium [Moles/Vol] 142 mmol/L 136 - 145 mmol/L [facility] Urea nitrogen [Mass/Vol] 18 mg/dL 6 - 20 mg/dL [facility] Urea nitrogen/Creatinine [Mass ratio] 26 mg/mg High 9 - 20 [facility] Basic Metabolic Profon 02-05 Anion gap [Moles/Vol] 15 mmol/L Normal -16 [facility] Comment on above: Performed By: #### C DP, CP #### [facility] [address] [place] [address] Product Strategy Director: Murtaza Arceo MD BUN/CRE Ratio 26 High -20 [facility] Comment on above: Performed By: #### C DP, CP #### [facility] [address] [place], [place] [id number] Product Strategy Director: Murtaza Arceo MD Calcium [Mass/Vol] 9.5 mg/dL Normal 8.6-10.4 [facility] Comment on above: Performed By: #### C DP, CP #### [facility] [address] [place], [place] [id number] Product Strategy Director: Murtaza Arceo MD Chloride [Moles/Vol] 105 mmol/L Normal 98-107 [facility] Comment on above: Performed By: #### C DP, CP #### [facility] [address] [place], [place] [id number] Product Strategy Director: Murtaza Arceo MD CO2 [Moles/Vol] 22 mmol/L Normal 20-31 [facility] Comment on above: Performed By: #### C DP, CP #### [facility] [address] [place], [place] [id number] Product Strategy Director: Murtaza Arceo MD Creatinine [Mass/Vol] 0.7 mg/dL Normal 0.50-0.90 [facility] Comment on above: Performed By: #### C DP, CP #### [facility] [address] [place], [place] [id number] Product Strategy Director: Murtaza Arceo MD GFR/1.73 sq M.predicted among non-blacks MDRD (S/P/Bld) [Vol rate/Area] mL/min/{1.73_m2} Normal >60 [facility] Comment on above: Result Comment: These [...] secretion. Performed By: #### C DP, CP #### [facility] [address] [place], [place] [id number] Product Strategy Director: Murtaza Arceo MD Glucose [Mass/Vol] 101 mg/dL High 74-99 [facility] Comment on above: Performed By: #### C DP, CP #### [facility] [address] [place], [place] [id number] Product Strategy Director: Murtaza Arceo MD Potassium [Moles/Vol] 3.6 mmol/L Low 3.7-5.3 [facility] Comment on above: Performed By: #### C DP, CP #### [facility] [address] [place], [place] [id number] Product Strategy Director: Murtaza Arceo MD Sodium [Moles/Vol] 142 mmol/L Normal 136-145 [facility] Comment on above: Performed By: #### C DP, CP #### [facility] [address] [place], [place] [id number] Product Strategy Director: Murtaza Arceo MD Urea nitrogen [Mass/Vol] 18 mg/dL Normal 6-20 [facility] Comment on above: Performed By: #### C DP, CP #### [facility] [address] [place] [address] Dr. [place], [place] [id number] Product Strategy Director: Murtaza Arceo MD CBC with Auto Differentialon 02-05-2025 Basophils (Bld) [#/Vol] 0 10*3/uL [facility] Basophils/100 WBC (Bld) 0 % 0 - 2 % [facility] Eosinophils (Bld) [#/Vol] 0 10*3/uL [facility] Eosinophils/100 WBC (Bld) 0 % Low 1 - 4 % [facility] Erythrocyte distribution width (RBC) [Ratio] 13.1 % 11.8 - 14.4 % [facility] Hematocrit (Bld) [Volume fraction] 42.4 % 36.3 - 47.1 % [facility] Hemoglobin (Bld) [Mass/Vol] 14.4 g/dL 11.9 - 15.1 g/dL [facility] Immature granulocytes (Bld) [#/Vol] 0 10*3/uL [facility] Immature granulocytes/100 WBC (Bld) 0 % 0 [facility] Interpretation and review of laboratory results Abnormal [facility] Lymphocytes/100 WBC (Bld) 36 % 24 - 43 % [facility] Lymphocytes/100 WBC (Bld) 4.5 % High [facility] MCH (RBC) [Entitic mass] 30.3 pg 25.2 - 33.5 pg [facility] MCHC (RBC) [Mass/Vol] 34 g/dL 28.4 - 34.8 g/dL [facility] MCV (RBC) [Entitic vol] 89.1 fL 82.6 - 102.9 fL [facility] Monocytes/100 WBC (Bld) 1 % Low 3 - 12 % [facility] Monocytes/100 WBC (Bld) 0.13 % [facility] Morphology Kenan (Bld) [Interp] Normal Platelet scan shows Normal Platelets [facility] Neutrophils/100 WBC (Bld) 63 % 36 - 65 % [facility] Nucleated RBC/100 WBC (Bld) [Ratio] 0 % 0.0 per 100 WBC [facility] Platelet mean volume (Bld) [Entitic vol] 10.3 fL 8.1 - 13.5 fL [facility] Platelets (Bld) [#/Vol] 327 10*3/uL [facility] RBC (Bld) [#/Vol] 4.76 10*6/uL 3.95 - 5.1 1 m/uL [facility] Segmented neutrophils/100 WBC (Bld) 7.87 % [facility] WBC other (Bld) [#/Vol] 12.5 High [facility] CBC with Diffon 02-05-2025 Abs. Basophil 0.00 k/uL Normal 0.0-0.2 [facility] Comment on above: Performed By: #### C DP, CP #### [facility] [address] [place], [place] [address] Product Strategy Director: Murtaza Arceo MD Abs.Imm.Granulocyte 0.00 k/uL Normal 0.00-0.30 [facility] Comment on above: Performed By: #### C DP, CP #### [address] [place] [address] Product Strategy Director: Murtaza Arceo MD Abs.Neutrophil (Seg) 7.87 k/uL Normal 1.50-8.10 [facility] Comment on above: Performed By: #### C DP, CP #### [address] [address] Product Strategy Director: Murtaza Arceo MD Basophils/100 WBC (Bld) 0 % Normal 0-2 [facility] Comment on above: Performed By: #### C DP, CP #### [address] [address] Product Strategy Director: Murtaza Arceo MD Eosinophils (Bld) [#/Vol] 0.00 10*3/uL Normal 0.00-0.44 [facility] Comment on above: Performed By: #### C DP, CP #### [address] [address] Product Strategy Director: Murtaza Arceo MD Eosinophils/100 WBC (Bld) 0 % Low 1-4 [facility] Comment on above: Performed By: #### C DP, CP #### [address] [place], [facility] Product Strategy Director: Murtaza Arceo MD Immature granulocytes/100 WBC (Bld) 0 % Normal 0 [facility] Comment on above: Performed By: #### C DP, CP #### [address] [place] [id number] Product Strategy Director: Murtaza Arceo MD Lymphocytes (Bld) [#/Vol] 4.50 10*3/uL High 1.10-3.70 [facility] Comment on above: Performed By: #### C DP, CP #### [facility] [address] [place] [address] Product Strategy Director: Murtaza Arceo MD Lymphocytes/100 WBC (Bld) 36 % Normal 24-43 [facility] Comment on above: Performed By: #### C DP, CP #### [facility] [address] [place], [place] [address] Product Strategy Director: Murtaza Arceo MD Monocytes (Bld) [#/Vol] 0.13 10*3/uL Normal 0.10-1.20 [facility] Comment on above: Performed By: #### C DP, CP #### [address] [place], [place] [address] Product Strategy Director: Murtaza Arceo MD Monocytes/100 WBC (Bld) 1 % Low 3-12 [facility] Comment on above: Performed By: #### C DP, CP #### [address] [place], [place] [address] Product Strategy Director: Murtaza Arceo MD Morphology Kenan (Bld) [Interp] Normal Normal [facility] Comment on above: Result Comment: Plat elet scan shows Normal Platelets Performed By: #### C DP, CP #### [address] [place], [facility] Product Strategy Director: Murtaza Arceo MD Neutrophil (Seg) 63 % Normal 36-65 [facility] Comment on above: Performed By: #### C DP, CP #### [address] [place], [place] [address] Product Strategy Director: Murtaza Arceo MD Erythrocyte distribution width (RBC) [Ratio] 13.1 % Normal 11.8-14.4 [facility] Comment on above: Performed By: #### C DP, CP #### [address] [place], [place] 1975[address]83 Product Strategy Director: Murtaza Arceo MD Hematocrit (Bld) [Volume fraction] 42.4 % Normal 36.3-47.1 [facility] Comment on above: Performed By: #### C DP, CP #### [address] [place] [phone] Product Strategy Director: Murtaza Arceo MD Hemoglobin (Bld) [Mass/Vol] 14.4 g/dL Normal 11.9-15.1 [facility] Comment on above: Performed By: #### C DP, CP #### [address] [place] [id number] Product Strategy Director: Murtaza Arceo MD MCH (RBC) [Entitic mass] 30.3 pg Normal 25.2-33.5 [facility] Comment on above: Performed By: #### C DP, CP #### [address] [place] [id number] Product Strategy Director: Murtaza Arceo MD MCHC (RBC) [Mass/Vol] 34.0 g/dL Normal 28.4-34.8 [facility] Comment on above: Performed By: #### C DP, CP #### [address] [place] [id number] Product Strategy Director: Murtaza Arceo MD MCV (RBC) [Entitic vol] 89.1 fL Normal 82.6-102.9 [facility] Comment on above: Performed By: #### C DP, CP #### [address] [place] [address] Product Strategy Director: Murtaza Arceo MD NRBC Automated 0.0 per 100 WBC Normal 0.0 [facility] Comment on above: Performed By: #### C DP, CP #### [address] [place], [place] 7263683 Product Strategy Director: Murtaza Arceo MD Platelet mean volume (Bld) [Entitic vol] 10.3 fL Normal 8.1-13.5 [facility] Comment on above: Performed By: #### C DP, CP #### [facility] [address] [place], [place] 6[address]83 Product Strategy Director: Murtaza Arceo MD Platelets (Bld) [#/Vol] 327 10*3/uL Normal 138-453 [facility] Comment on above: Performed By: #### C DP, CP #### [facility] [address] [place], [place] [id number] Product Strategy Director: Murtaza Arceo MD RBC (Bld) [#/Vol] 4.76 10*6/uL Normal 3.95-5.11 [facility] Comment on above: Performed By: #### C DP, CP #### [facility] [address] [place] [address] Dr. [place], [place] [phone] Product Strategy Director: Murtaza Arceo MD WBC (Bld) [#/Vol] 12.5 10*3/uL High 3.5-11.3 [facility] Comment on above: Performed By: #### C DP, CP #### [facility] [address] [place] [address] [place]. [place], [place] [id number] Product Strategy Director: Murtaza Arceo MD Hepatic Function Panelon Albumin [Mass/Vol] 4.2 g/dL 3.5 - 5.2 g/dL [facility] Albumin/Globulin [Mass ratio] 1.4 {ratio} 1.0 - 2.5 [facility] ALP [Catalytic activity/Vol] 76 U/L 35 - 104 U/L [facility] ALT [Catalytic activity/Vol] 38 U/L High 10 - 35 U/L [facility] AST [Catalytic activity/Vol] 37 U/L High 10 - 35 U/L [facility] Bilirubin [Mass/Vol] 0.5 mg/dL 0.00 - 1.20 mg/dL [facility] Bilirubin.direct [Mass/Vol] mg/dL 0.00 - 0.30 mg/dL [facility] Bilirubin.indirect [Mass/Vol] Can not be calculated 0.0 - 1.0 mg/dL [facility] Protein [Mass/Vol] 7.2 g/dL 6.6 - 8.7 g/dL [facility] Lipaseon 02-05-2025 Lipase [Catalytic activity/Vol] 64 U/L High 13 - 60 U/L [facility] Lipase [Catalytic activity/Vol] 64 U/L High 13-60 [facility] Comment on above: Performed By: #### C DP, CP #### [facility] [address] [place] [address] Product Strategy Director: Murtaza Arceo MD Liver Profileon 02-05-2025 Albumin [Mass/Vol] 4.2 g/dL Normal 3.5-5.2 [facility] Comment on above: Performed By: #### C DP, CP #### [facility] [address] [place] [address] Product Strategy Director: Murtaza Arceo MD Albumin/Glob Ratio 1.4 Normal 1.0-2.5 [facility] Comment on above: Performed By: #### C DP, CP #### [facility] [address] [place], [place] 1900183 Product Strategy Director: Murtaza Arceo MD Alkaline Phos 76 U/L Normal 35-104 [facility] Comment on above: Performed By: #### C DP, CP #### [facility] [address] [place], [place] [id number] Product Strategy Director: Murtaza Arceo MD ALT [Catalytic activity/Vol] 38 U/L High 10-35 [facility] Comment on above: Performed By: #### C DP, CP #### [facility] [address] [place] [address] Product Strategy Director: Murtaza Arceo MD AST [Catalytic activity/Vol] 37 U/L High 10-35 [facility] Comment on above: Performed By: #### C DP, CP #### [facility] [address] [place], [place] 1716583 Product Strategy Director: Murtaza Arceo MD Bilirubin [Mass/Vol] 0.5 mg/dL Normal 0.00-1.20 [facility] Comment on above: Performed By: #### C DP, CP #### [facility] [address] [place], [place] 3502183 Product Strategy Director: Murtaza Arceo MD Bilirubin, Indirect Can not be calculated Normal 0.0-1 .0 [facility] Comment on above: Performed By: #### C DP, CP #### [facility] [address] [place], [place] 9017383 Product Strategy Director: Murtaza Arceo MD Bilirubin.indirect [Mass/Vol] mg/dL Normal 0.00-0.30 [facility] Comment on above: Performed By: #### C DP, CP #### [address] [place], [place] 6697283 Product Strategy Director: Murtaza Arceo MD Protein [Mass/Vol] 7.2 g/dL Normal 6.6-8.7 [facility] Comment on above: Performed By: #### C DP, CP #### [facility] [address] [place], [place] 3961383 Product Strategy Director: Murtaza Arceo MD No Panel Informationon 02-05 Interpretation and review of laboratory results Abnormal [facility] .UA Microscp Aon 02-01-2025 UA RBC Quant 0 /HPF Normal 0-5 [facility] Comment on above: Performed By: #### . Automated Diff #### [facility] [address] [place] [address] UA Squepi Cells Quant <1 Normal 0-29 [facility] Comment on above: Performed By: #### . Automated Diff #### [facility] [address] [place] [address] UA WBC Quant 0 /HPF Normal 0-5 [facility] Comment on above: Performed By: #### . Automated Diff #### [place] [address] [place] [address] .eGFRon 02-01-2025 GFR/1.73 sq M.predicted MDRD (S/P/Bld) [Vol rate/Area] mL/min/{1.73_m2} Normal >=60 [facility] Comment on above: Result Comment: [facility] have implemented the eGFR calculation [...] years Performed By: #### E GFR #### [address] [address] Basic Metabolic Profileon Anion gap [Moles/Vol] 7 mmol/L Normal - [facility] Comment on above: Performed By: #### . Urinalysis Microscopic Auto #### [address] [address] BUN Crea Ratio 18.3 ratio Normal 10.0-20.0 [facility] Comment on above: Performed By: #### . Urinalysis Microscopic Auto #### [address] [address] Calcium [Mass/Vol] 9.0 mg/dL Normal 8.6-10.3 [facility] Comment on above: Performed By: #### . Urinalysis Microscopic Auto #### [address] [address] Chloride [Moles/Vol] 104 mmol/L Normal 98-110 [facility] Comment on above: Performed By: #### . Urinalysis Microscopic Auto #### [address] [address] CO2 [Moles/Vol] 25 mmol/L Normal 22-32 [facility] Comment on above: Performed By: #### . Urinalysis Microscopic Auto #### [address] [address] Creatinine [Mass/Vol] 0.82 mg/dL Normal 0.44-1.03 [facility] Comment on above: Performed By: #### . Urinalysis Microscopic Auto #### [address] [address] Glucose [Mass/Vol] 177 mg/dL High 70-99 [facility] Comment on above: Performed By: #### . Urinalysis Microscopic Auto #### [address] [address] Potassium [Moles/Vol] 4.4 mmol/L Normal 3.4-4.8 [facility] Comment on above: Performed By: #### . Urinalysis Microscopic Auto #### [address] [address] Sodium [Moles/Vol] 136 mmol/L Normal 133-142 [facility] Comment on above: Performed By: #### . Urinalysis Microscopic Auto #### [address] [address] Urea nitrogen [Mass/Vol] 15 mg/dL Normal 8-26 [facility] Comment on above: Performed By: #### . Urinalysis Microscopic Auto #### [address] [address] CBC w/ Diffon 02-01-2025 Erythrocyte distribution width (RBC) [Ratio] 13.9 % Normal 11.6-14.8 [facility] Comment on above: Performed By: #### . Automated Diff #### [address] [address] Hematocrit (Bld) [Volume fraction] 40.8 % Normal 36.0-46.0 [facility] Comment on above: Performed By: #### . Automated Diff #### [place] [id number] Hemoglobin (Bld) [Mass/Vol] 13.7 g/dL Normal 12.0-16.0 [facility] Comment on above: Performed By: #### . Automated Diff #### [place] [id number] MCH (RBC) [Entitic mass] 29.9 pg Normal 27.0-35.0 [facility] Comment on above: Performed By: #### . Automated Diff #### [place] [id number] MCHC 33.6 % Normal 31.0-37.0 [facility] Comment on above: Performed By: #### . Automated Diff #### [address] [address] MCV (RBC) [Entitic vol] 88.9 fL Normal 80.0-100.0 [facility] Comment on above: Performed By: #### . Automated Diff #### [address] [address] Platelet 285 x10*3/mcL Normal 150-450 [facility] Comment on above: Performed By: #### . Automated Diff #### [address] [address] Platelet mean volume (Bld) [Entitic vol] 8.6 fL Normal 6.7-10.6 [facility] Comment on above: Performed By: #### . Automated Diff #### [address] [address] RBC 4.59 x10*6/mcL Normal 3.80-5.20 [facility] Comment on above: Performed By: #### . Automated Diff #### [address] [address] WBC 9.2 x10*3/mcL Normal 4.5-11.0 [facility] Comment on above: Performed By: #### . Automated Diff #### [address] [address] Diff Autoon 02-01-2025 Baso Absolute 0.0 x10*3/mcL Normal 0.0-0.2 [facility] Comment on above: Performed By: #### C BC #### [address] [address] Basophils/100 WBC (Bld) 0.5 % Normal 0.0-1.5 [facility] Comment on above: Performed By: #### C BC #### [address] [address] Eos Absolute 0.2 x10*3/mcL Normal 0.0-0.4 [facility] Comment on above: Performed By: #### C BC #### [address] [address] Eosinophils/100 WBC (Bld) 2.4 % Normal 0.0-5.4 [facility] Comment on above: Performed By: #### C BC #### [address] [address] Lymph Absolute 3.1 x10*3/mcL Normal 1.0-4.8 [facility] Comment on above: Performed By: #### C BC #### [address] [address] Lymphocytes/100 WBC (Bld) 33.3 % Normal 27.2-40.8 [facility] Comment on above: Performed By: #### C BC #### [address] [address] Webster Absolute 0.6 x10*3/mcL Normal 0.1-1.1 [facility] Comment on above: Performed By: #### C BC #### [address] [address] Monocytes/100 WBC (Bld) 6.7 % Normal 3.7-11.9 [facility] Comment on above: Performed By: #### C BC #### [address] [address] Neutro Absolute 5.2 x10*3/mcL Normal 1.8-7.7 [facility] Comment on above: Performed By: #### C BC #### [address] [address] Neutro Auto 57.1 % Normal 47.2-70.8 [facility] Comment on above: Performed By: #### C BC #### [address] [address] ED Clinical Summaryon 2024 ED Clinical Summary [address] [id number] ED Clinical Summary Person Information Name: Gael Ruby/[facility] Age: 29 Years : 1995 Sex: Female PCP: Yossi Golden MD Marital Status: Phone: Race: White Ethnicity: Not or Language: [place] Visit Reason: Abdominal pain; abdominal pain Acuity: 3 Enc Type: Emergency Med Service: Emergency Medicine Arrival: 02/01/2025 07:30:49 Discharge: 02/01/2025 11:41:00 LOS: 000 04:11 Checkin: 02/01/2025 07:30:49 Checkout: 02/01/2025 11:41:00 Dispo Type: Home or Self Care Address: [address] [place] [id number] Provider Notes: Diagnosis: Abdominal pain Problems Active [...] range between ( 27.2 and 40.8 ) Webster Auto: 6.7 % -- Normal range between [...] range between ( 36.0 and 46.0 ) [place] Absolute: 0.6 x10 MCH: 29.9 pg -- [...] tabs, 0 Refill (more content not included)... [facility] ED Note-Nursingon 02-01-2025 ED Note-Nursing GI consulted DR. Sanches regarding CT results Electronically signed by Villarreal, Adela R 02/01/25 11:25 EDT [facility] ED Note-Nursing PT decided she wante d to do CT scan after refusing it to Dr. Mondragon. Order put back in and discharge on hold pending CT results Electronically signed by Villarreal, Adela R 02/01/25 10:27 EDT [facility] ED Note-Nursing Pt request something for pain/ Dr. Mondragon notified Electronically signed by Villarreal, Adela R 02/01/25 08:30 EDT Normal [facility] ED Note-Physicianon 02-02-20 ED Note-Physician Chief Complaint [...] somewhat attack today. 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 Patient is otherwise alert [...] section Local anaesthetic infiltration of tear duct [place] Tooth extraction (2009) Oopherectomy (06/2010) Tonsillectomy and [...] 2% topic (more content not included)... Normal [facility] Lactic Acid, Randomon 2024 Lactic Acid Lvl 1.3 mmol/L Normal 0.5-2.0 [facility] Comment on above: Performed By: #### . Urinalysis Microscopic Auto #### [address] [address] Lipaseon 02-01-2025 Lipase Lvl 47 IU/L Normal 22-51 [facility] Comment on above: Performed By: #### . Automated Diff #### [address] [address] Magnesiumon 02-01-2025 Magnesium [Mass/Vol] 2.2 mg/dL Normal 1.7-2.4 [facility] Comment on above: Performed By: #### . Urinalysis Microscopic Auto #### [address] [address] POC Glucose Randomon 025 Glucose [Mass/Vol] 187 mg/dL High 70-99 [facility] Comment on above: Performed By: #### C BC #### [address] [address] PTon 02-01-2025 INR Coag (PPP) [Relative time] 1.0 {INR} Normal <=3.5 [facility] Comment on above: Result Comment: INR has no normal range. INR Therapeutic range is: 2.0-3.0 (AF, CVA, TIAs, DVT prophylaxis, acute DVT) 2.5-3.5 ([facility] heart valves, recurrent thrombosis/emboli) Performed By: #### P TINR #### [place] [address] PT Coag (PPP) [Time] 12.2 s Normal 10.2-12.9 [facility] Comment on above: Performed By: #### P TINR #### [place] [id number] PTTon 02-01-2025 aPTT Coag (Bld) [Time] 28.8 s Normal 25.1-36.5 [facility] Comment on above: Performed By: #### . Urinalysis Microscopic Auto #### [place] [id number] UA w Culture if Indon 2024 Color (U) Colorless Normal Yellow [facility] Comment on above: Performed By: #### . Urinalysis Microscopic Auto #### [place] [id number] Glucose (U) [Mass/Vol] mg/dL Abnormal Negative [facility] Comment on above: Performed By: #### . Urinalysis Microscopic Auto #### [place] [id number] Ketones Ql (U) Negative Normal Negative [facility] Comment on above: Performed By: #### . Urinalysis Microscopic Auto #### [address] [address] UA Blood Negative Normal Negative [facility] Comment on above: Performed By: #### . Urinalysis Microscopic Auto #### [address] [address] UA Clarity Clear Normal Clear [facility] Comment on above: Performed By: #### . Urinalysis Microscopic Auto #### [place] [address] UA Leukocyte Esterase Negative Normal Negative [facility] Comment on above: Performed By: #### . Urinalysis Microscopic Auto #### [place] [id number] UA Nitrite Negative Normal Negative [facility] Comment on above: Performed By: #### . Urinalysis Microscopic Auto #### [place] [address] UA pH 7.0 Normal 4.5 - 7.8 [facility] Comment on above: Performed By: #### . Urinalysis Microscopic Auto #### [place] [address] UA Protein Negative Normal Negative [facility] Comment on above: Performed By: #### . Urinalysis Microscopic Auto #### [place] [address] UA Source Clean Catch Normal [facility] Comment on above: Performed By: #### . Urinalysis Microscopic Auto #### [place] [address] UA Spec Grav 1.015 Normal 1.003-1.035 [facility] Comment on above: Performed By: #### . Urinalysis Microscopic Auto #### [place] [address] UA Urobilinogen Normal Normal 0.2 - 1.0 [facility] Comment on above: Performed By: #### . Urinalysis Microscopic Auto #### [place] [address] Urobilinogen (U) [Mass/Vol] Negative Normal Negative [facility] Comment on above: Performed By: #### . Urinalysis Microscopic Auto #### [place] [address] B hCG Qualon 01-26-2025 Beta HCG ( test) Ql Negative Normal [facility] Comment on above: Performed By: #### 2 [id number] #### [facility] [address] [place] [address] BMPon 01-26-2025 CO2 [Moles/Vol] 24 mmol/L Normal 21-31 [facility] Comment on above: Performed By: #### 2 [id number] #### [facility] [address] [place] [address] Anion gap [Moles/Vol] 13 mmol/L Normal 6-16 [facility] Comment on above: Performed By: #### 2 [id number] #### [facility] [address] [place] [address] Calcium [Mass/Vol] 9.1 mg/dL Normal 8.9-11.1 [facility] Comment on above: Performed By: #### 2 [id number] #### [facility] [address] [place] [address] Chloride [Moles/Vol] 101 mmol/L Normal 101-111 [facility] Comment on above: Performed By: #### 2 [id number] #### [facility] [address] [place] [address] Creatinine [Mass/Vol] 0.8 mg/dL Normal 0.5-1.3 [facility] Comment on above: Performed By: #### 2 602500 #### [facility] [address] [place] [address] Glucose [Mass/Vol] 277 mg/dL High 55-199 [facility] Comment on above: Performed By: #### 2 [id number] #### [facility] [address] [place] [address] Potassium [Moles/Vol] 3.4 mmol/L Low 3.5-5.3 [facility] Comment on above: Performed By: #### 2 [id number] #### [facility] [address] [place] [address] Sodium [Moles/Vol] 135 mmol/L Normal 135-145 [facility] Comment on above: Performed By: #### 2 [id number] #### [facility] [address] [place] [address] Urea nitrogen [Mass/Vol] 12 mg/dL Normal 5-21 [facility] Comment on above: Performed By: #### 2 [id number] #### [facility] [address] [place] [address] Urea nitrogen/Creatinine [Mass ratio] 15 No Units Normal 10-20 [facility] Comment on above: Performed By: #### 2 [id number] #### [facility] [address] [place] [address] CBC w/ Auto Diffon 5 Basophils/100 WBC (Bld) 0.7 % Normal 0.0-2.0 [facility] Comment on above: Performed By: #### 2 [id number] #### [facility] [address] [place] [address] Basophils/Leukocytes Auto (Bld) [Pure # fraction] 0.1 E9/L Normal 0.0-0.2 [facility] Comment on above: Performed By: #### 2 [id number] #### [facility] [address] [place] [address] Eosinophils (Bld) [#/Vol] 0.2 E9/L Normal 0.0-0.5 [facility] Comment on above: Performed By: #### 2 923991 #### [facility] [address] [place] [address] Eosinophils/100 WBC (Bld) 1.8 % Normal 0.0-8.0 [facility] Comment on above: Performed By: #### 2 465676 #### [facility] [address] [place] [address] Erythrocyte distribution width (RBC) [Ratio] 14.0 % Normal 10.9-14.2 [facility] Comment on above: Performed By: #### 2 955220 #### [facility] [address] [place] [address] Hematocrit (Bld) [Volume fraction] 41.8 % Normal 34.0-46.0 [facility] Comment on above: Performed By: #### 2 482682 #### [facility] [address] [place] [address] Hemoglobin (Bld) [Mass/Vol] 14.5 g/dL Normal 12.0-16.0 [facility] Comment on above: Performed By: #### 2 010701 #### [facility] [address] [place] [address] Lymphocytes (Bld) [#/Vol] 4.8 E9/L High 1.0-4.0 [facility] Comment on above: Performed By: #### 2 791494 #### [facility] [address] [place] [address] Lymphocytes/100 WBC (Bld) 37.0 % Normal 14.0-50.0 [facility] Comment on above: Performed By: #### 2 843043 #### [facility] [address] [place] [address] MCH (RBC) [Entitic mass] 30.5 pg Normal 27.0-34.0 [facility] Comment on above: Performed By: #### 2 116741 #### [facility] [address] [place] [address] MCHC (RBC) [Mass/Vol] 34.8 g/dL Normal 31.4-36.0 [facility] Comment on above: Performed By: #### 2 [id number] #### [facility] [address] [place] [address] MCV (RBC) [Entitic vol] 87.6 fL Normal 80.0-100.0 [facility] Comment on above: Performed By: #### 2 743116 #### [facility] [address] [place] [address] Monocytes (Bld) [#/Vol] 0.6 E9/L Normal 0.2-1.0 [facility] Comment on above: Performed By: #### 2 005795 #### [facility] [address] [place] [address] Neutrophils (Bld) [#/Vol] 7.1 E9/L Normal 2.0-7.5 [facility] Comment on above: Performed By: #### 2 261438 #### [facility] [address] [place] [address] Neutrophils/100 WBC (Bld) 55.5 % Normal 36.0-75.0 [facility] Comment on above: Performed By: #### 2 641697 #### [facility] [address] [place] [address] Platelet mean volume (Bld) [Entitic vol] 8.6 fL Normal 6.4-10.8 [facility] Comment on above: Performed By: #### 2 769362 #### [facility] [address] [place] [address] Platelets (Bld) [#/Vol] 291.0 E9/L Normal 150.0-500.0 [facility] Comment on above: Performed By: #### 2 541189 #### [facility] [address] [place] [address] RBC (Bld) [#/Vol] 4.8 E12/L Normal 4.3-5.9 [facility] Comment on above: Performed By: #### 2 382849 #### [facility] [address] [place] [address] WBC corrected for nucl RBC Auto (Bld) [#/Vol] 12.9 E9/L High 4.0-11.0 [facility] Comment on above: Performed By: #### 2 990358 #### [facility] [address] [place] [address] CHEMISTRYOrdered By: SYSTEM SYSTEM on 01-26-2025 Albumin [...] 24 mmol/L Normal 21 - 31 mmol/L [facility] Chem S ED Clinical Summaryon 2024 ED Clinical Summary ED Clinical Summary [place] [id number] ED Clinical Summary Person Information Name: GAEL RUBY/RicJuany Age: 29 Years : 1995 Sex: Female Language: [place] PCP: YOSSI GOLDEN MD Marital Status: MRN: Visit Id: Visit Reason: Medical problem - [...] 01/26/2025 03:40:39 01/26/2025 03:40:39 01/26/2025 03:40:39 ADDRESS: [address] [place] [id number] PHYS DOC NOTES: MEDICAL INFORMATION: Prescriptions Given: [...] up: With: Address: When: Aly Beverly [address] [facility], [address], [address] [phone] Business (1) In 3 days 01/29/2025 Comments: Make sure to follow-up with Dr. Beverly as discussed. Return to the emergency room if your pain gets worse, vomiting recurs or any new symptoms. With: Address: When: YOSSI GOLDEN [address] [place], [place] [phone] Business (1) In 3 days DIAGNOSIS: 1:Abdominal pain; 2:Gastroparesis Normal [facility] ED Note-Physicianon 01-27-20 ED Note-Physician ED Note-Physician Basic Information Time Seen: Laurie GarciaAlphonso 01/26/2025 01:03 Chief Complaint abdominal pain and nausea x24 hours. States histoy of gastroparesis. Was seen earlier at an ER in [place]. History of Present Illness The patient is [...] reports constipation. She states she was in [facility] earlier today and they discharged her home. [...] and Complexity of Problems Differential Diagnosis: [] [facility] Data External documents reviewed: [] My EKG [...] Stable, improv (more content not included)... Normal [facility] Comment on above: Result Comment: Elec tronically Signed By: Laurie Garcia, Alphonso Garcia\.br\Date and Time Signed: 01/26/25 03:46 EDT ED Patient Summaryon 025 ED Patient Summary ED Patient Summary [place] [id number] Patient Discharge Instructions Person Information Name: GAEL RUBY Age: 29 Years Arrival Date: 01/26/2025 00:57:34 Discharge Diagnosis: 1:Abdominal pain; 2:Gastroparesis Primary Care Physician: YOSSI GOLDEN MD Provider Information Primary Provider: Alphonso Sullivan M.D. Advanced Hydrostatic Tubing Tester:None The exam and treatment you received in the Emergency Department were for an urgent problem and are not intended as complete care. It is important that you follow up with a doctor, nurse practitioner, or physician???s occupational therapist's assistant for ongoing care. If your symptoms become worse or you do not improve as expected and you are unable to reach your usual health care provider, you should return to the Emergency Department. We are available 24 hours a day. GAEL RUBY has been given the following list of patient education materials, prescriptions and follow-up instructions: Follow-up Instructions: With: Address: When: Aly Bveerly [address] [facility], [address], [address] [phone] Business (1) In 3 days 01/29/2025 Comments: Make sure to follow-up with Dr. Beverly as discussed. Return to the emergency room if your pain gets worse, vomiting recurs or any new symptoms. With: Address: When: YOSSI GOLDEN [address], [place] [phone] Business (1) In 3 days In the event that this physician does not participate in your insurance network, please consult with your insurance company to find a nearby participating provider. Patient Education Materials: Gastroparesis; Abdominal Pain, Adult A MESSAGE TO ALL PATIENTS REGARDING OPIOIDS PRESCRIPTION OPIOIDS: WHAT YOU NEED TO KNOW Prescription opioids can be used to help relieve cilimwdk-ii-ksisfz pain and are often prescribed following a [...] program or your pharmacy mail-back program, or flus (more content not included)... Normal [facility] Extra Blueon 01-26-2025 Tube Collected Plasma Yes Invalid Interpretation Code [facility] Comment on above: Performed By: #### 1 [id number] #### [facility] [address] [place] [address] HEMATOLOGYOrdered By: SYSTEM SYSTEM on 01-26-2025 Basophils/100 [...] 01-26-2025 Albumin [Mass/Vol] 4.2 g/dL Normal 3.3-5.0 [facility] Comment on above: Performed By: #### 2 784111 #### [facility] [address] [place] [address] Albumin/Globulin (S) [Mass conc ratio] 1.5 Normal 1.1-2.2 [facility] Comment on above: Performed By: #### 2 [id number] #### [facility] [address] [place] [address] ALP [Catalytic activity/Vol] 66 Int._Unit/L Normal 21-98 [facility] Comment on above: Performed By: #### 2 [id number] #### [facility] [address] [place] [address] ALT No additional P-5'-P [Catalytic activity/Vol] 32 Int._Unit/L Normal 6-46 [facility] Comment on above: Performed By: #### 2 [id number] #### [facility] [address] [place] [address] AST [Catalytic activity/Vol] 25 Int._Unit/L Normal 5-43 [facility] Comment on above: Performed By: #### 2 [id number] #### [facility] [address] [place] [address] Bilirubin [Mass/Vol] 0.8 mg/dL Normal 0.0-1.1 [facility] Comment on above: Performed By: #### 2 [id number] #### [facility] [address] [place] [address] Bilirubin.direct [Mass/Vol] 0.1 mg/dL Normal 0.0-0.4 [facility] Comment on above: Performed By: #### 2 829905 #### [facility] [address] [place] [address] Bilirubin.indirect [Mass or moles/Vol] 0.7 mg/dL Normal 0.1-0.9 [facility] Comment on above: Performed By: #### 2 808872 #### [facility] [address] [place] [address] Globulin (S) [Mass/Vol] 2.8 g/dL Normal 1.4-4.0 [facility] Comment on above: Performed By: #### 2 [id number] #### [facility] [address] [place] [address] Protein [Mass/Vol] 7.0 g/dL Normal 6.0-7.8 [facility] Comment on above: Performed By: #### 2 [id number] #### [facility] [address] [place] [address] Lipase Levelon 01-26-2025 Lipase [Catalytic activity/Vol] 61 U/L High 13-58 [facility] Comment on above: Performed By: #### 2 [id number] #### [facility] [address] [place] [address] SEROLOGYOrdered By: Nehal Toscano on 01-26-2025 Beta HCG ( test) Ql Negative (01/26/25 1:23 AM) Normal [facility] Man Sero UA with Cult Rflxon 01-27-20 25 Bilirubin Ql (U) Negative Normal Negative [facility] Comment on above: Performed By: #### 4 [id number] #### [facility] [address] [place] [address] Clarity (U) Clear Normal Clear [facility] Comment on above: Performed By: #### 4 [id number] #### [facility] [address] [place] [address] Color (U) Yellow Normal Yellow [facility] Comment on above: Result Comment: Micr oscopic readings are only performed on those samples that meet specific criteria set forth by [facility]. Performed By: #### 4 [id number] #### [facility] [address] [place] [address] Epithelial cells.squamous Auto (Urine sed) [#/Area] 0-2 Invalid Interpretation Code [facility] Comment on above: Performed By: #### 4 [id number] #### [facility] [address] [place] [address] Glucose Ql (U) Negative Normal Negative [facility] Comment on above: Performed By: #### 4 [id number] #### [facility] [address] [place] [address] Hemoglobin Auto test strip (U) [Mass/Vol] Negative Normal Negative [facility] Comment on above: Performed By: #### 4 [id number] #### [facility] [address] [place] [address] Ketones Auto test strip Ql (U) Trace Abnormal Negative [facility] Comment on above: Performed By: #### 4 [id number] #### [facility] [address] [place] [address] Leukocyte esterase Auto test strip Ql (U) 25 Zhanna/uL Normal Negative [facility] Comment on above: Performed By: #### 4 [id number] #### [facility] [address] [place] [address] Mucus Auto Ql (U) Trace Normal Negative [facility] Comment on above: Performed By: #### 4 [id number] #### [facility] [address] [place] [address] Nitrite Auto test strip Ql (U) Negative Normal Negative [facility] Comment on above: Performed By: #### 4 [id number] #### [facility] [address] [place] [address] pH (U) 5.5 [pH] Invalid Interpretation Code 5.0-9.0 [facility] Comment on above: Performed By: #### 4 [id number] #### [facility] [address] [place] [address] Protein Ql (U) Negative Normal Negative [facility] Comment on above: Performed By: #### 4 [id number] #### [facility] [address] [place] [address] RBC Ql (U) 0-3 Normal 0-3 [facility] Comment on above: Performed By: #### 4 [id number] #### [facility] [address] [place] [address] Specific gravity (U) [Rel density] 1.019 Invalid Interpretation Code 1.005-1.030 [facility] Comment on above: Performed By: #### 4 [id number] #### [facility] [address] [place] [address] Urobilinogen (U) [Mass/Vol] 2 mg/dL Abnormal Negative [facility] Comment on above: Performed By: #### 4 [id number] #### [facility] [address] [place] [address] WBC Auto (Urine sed) [#/Area] 0-5 Normal 0-5 [facility] Comment on above: Performed By: #### 4 [id number] #### [facility] [address] [place] [address] Type of Urine collection method Clean Catch Normal [facility] Comment on above: Performed By: #### 4 [id number] #### [facility] [address] [place] [address] URINALYSISOrdered By: SYSTEM SYSTEM on 01-26-2025 Bilirubin Ql (U) Negative Normal Negativemg/ dL [facility] UA Auto SS Clarity (U) Clear (01/26/25 1:23 AM) Normal Clear [facility] UA Auto SS Color (U) Yellow 1 (01/26/25 1:23 AM) Normal Yellow [facility] UA Auto SS Comment on above: Interpretive Data: M icroscopic readings are only performed on those samples that meet specific criteria set forth by [facility]. Epithelial cells.squamous Auto (Urine sed) [#/Area] [...] Code Negativemg/ dL [facility] UA Auto SS WBC Auto (Urine sed) [#/Area] 0-5 graded/HPF Normal 0-5graded/H PF [facility] UA Auto SS URINALYSISOrdered By: Alphonso Sullivan on 01-26-2025 UA Spec Desc Clean Catch (01/26/25 1:23 AM) Normal [facility] UA Auto SS XR Abdomen Series w/ [...] MD Transcribed by: VENKAT Technologist: ISIS Normal [facility] eGFRon 01-26-2025 eGFR 101 mL/min/1.73 m2 Normal >=59 [facility] Comment on above: Performed By: #### 1 [id number] #### [facility] [address] [place] [address] .UA Microscp Aon 01-25-2025 UA Mucus Present Normal Absent [facility] Comment on above: Performed By: #### . Urinalysis Microscopic Auto #### [address] [address] UA RBC Quant 1 /HPF Normal 0-5 [facility] Comment on above: Performed By: #### . Urinalysis Microscopic Auto #### [address] [address] UA Squepi Cells Quant <1 Normal 0-29 [facility] Comment on above: Performed By: #### . Urinalysis Microscopic Auto #### [address] [address] UA WBC Quant 0 /HPF Normal 0-5 [facility] Comment on above: Performed By: #### . Urinalysis Microscopic Auto #### [address] [address] .eGFRon 01-25-2025 GFR/1.73 sq M.predicted MDRD (S/P/Bld) [Vol rate/Area] mL/min/{1.73_m2} Normal >=60 [facility] Comment on above: Result Comment: [facility] have implemented the eGFR calculation [...] By: #### . Urinalysis Microscopic Auto #### [address] [address] CBC w/ Diffon 01-25-2025 Erythrocyte distribution width (RBC) [Ratio] 13.8 % Normal 11.6-14.8 [facility] Comment on above: Performed By: #### . Automated Diff #### [address] [address] Hematocrit (Bld) [Volume fraction] 43.7 % Normal 36.0-46.0 [facility] Comment on above: Performed By: #### . Automated Diff #### [address] [address] Hemoglobin (Bld) [Mass/Vol] 15.0 g/dL Normal 12.0-16.0 [facility] Comment on above: Performed By: #### . Automated Diff #### [address] [address] MCH (RBC) [Entitic mass] 30.3 pg Normal 27.0-35.0 [facility] Comment on above: Performed By: #### . Automated Diff #### [address] [address] MCHC 34.3 % Normal 31.0-37.0 [facility] Comment on above: Performed By: #### . Automated Diff #### [address] [address] MCV (RBC) [Entitic vol] 88.2 fL Normal 80.0-100.0 [facility] Comment on above: Performed By: #### . Automated Diff #### [address] [address] Platelet 291 x10*3/mcL Normal 150-450 [facility] Comment on above: Performed By: #### . Automated Diff #### [place] [id number] Platelet mean volume (Bld) [Entitic vol] 7.8 fL Normal 6.7-10.6 [facility] Comment on above: Performed By: #### . Automated Diff #### [address] [address] RBC 4.96 x10*6/mcL Normal 3.80-5.20 [facility] Comment on above: Performed By: #### . Automated Diff #### [address] [address] WBC 15.6 x10*3/mcL High 4.5-11.0 [facility] Comment on above: Performed By: #### . Automated Diff #### [address] [address] CMPon 01-25-2025 Albumin [Mass/Vol] 3.5 g/dL Normal 3.2-4.9 [facility] Comment on above: Performed By: #### . Automated Diff #### [address] [address] Albumin/Globulin [Mass ratio] 1.0 {ratio} Low 1.1-2.2 [facility] Comment on above: Performed By: #### . Automated Diff #### [address] [address] Alk Phos 69 IU/L Normal 32-91 [facility] Comment on above: Performed By: #### . Automated Diff #### [address] [address] ALT [Catalytic activity/Vol] 39 U/L Normal 14-54 [facility] Comment on above: Performed By: #### . Automated Diff #### [address] [address] AST [Catalytic activity/Vol] 36 U/L Normal 15-41 [facility] Comment on above: Performed By: #### . Automated Diff #### [address] [address] Bili Total 1.2 mg/dL Normal 0.3-1.2 [facility] Comment on above: Performed By: #### . Automated Diff #### [address] [address] BUN Crea Ratio 11.4 ratio Normal 10.0-20.0 [facility] Comment on above: Performed By: #### . Automated Diff #### [address] [address] Creatinine [Mass/Vol] 0.70 mg/dL Normal 0.44-1.03 [facility] Comment on above: Performed By: #### . Automated Diff #### [address] [address] Protein [Mass/Vol] 6.9 g/dL Normal 6.5-8.1 [facility] Comment on above: Performed By: #### . Automated Diff #### [address] [address] Urea nitrogen [Mass/Vol] 8 mg/dL Normal 8-26 [facility] Comment on above: Performed By: #### . Automated Diff #### [address] [address] Anion gap [Moles/Vol] 10 mmol/L Normal 4-12 [facility] Comment on above: Performed By: #### . Automated Diff #### [address] [address] Calcium [Mass/Vol] 9.4 mg/dL Normal 8.6-10.3 [facility] Comment on above: Performed By: #### . Automated Diff #### [address] [address] Chloride [Moles/Vol] 104 mmol/L Normal 98-110 [facility] Comment on above: Performed By: #### . Automated Diff #### [address] [address] CO2 [Moles/Vol] 23 mmol/L Normal 22-32 [facility] Comment on above: Performed By: #### . Automated Diff #### [address] [address] Glucose [Mass/Vol] 163 mg/dL High 70-99 [facility] Comment on above: Performed By: #### . Automated Diff #### [address] [address] Potassium [Moles/Vol] 4.1 mmol/L Normal 3.4-4.8 [facility] Comment on above: Performed By: #### . Automated Diff #### [address] [address] Sodium [Moles/Vol] 137 mmol/L Normal 133-142 [facility] Comment on above: Performed By: #### . Automated Diff #### [address] [address] Katelyn 01-25-2025 DEMARCUSN Telephone (NIGHAT) GAEL RUBY ([id number]) 1995 F Date Time Provider Department 01/25/25 YAJAIRA LACKEY DDQ During your visit today, we recorded the following information about you: Laith Massey 01/25/2025 3:05 PM Signed Gael is calling Yajaira Lackey DO today with concern regarding Patient Question (Patient [place] in [place] today [place] states she is in a lot of pain and would like to speak with someone ) Patient has been identified by name and birthdate. Duration of symptoms: N/A Person calling: self Call patient at: at home [phone] (home) Was an appointment scheduled: No Closing statement: Symptom Call: Thank you for calling [facility], your call is very important. A nurse will call in approximately 2-4 hours during business hours. If this is an emergency, please contact 911. Dixie Dooley RN 01/26/2025 9:36 AM Signed MARGE: 12/02/2024 LDH: NOV: NDH: Spoke with patient Having Flare with pain 07/02 and nausea uses phenergan supp, compazine,zofran without relief ER x 2 [facility] Yesterday beck solo in [place] Xray done states Soft diet currently Bowels-constipated [...] if that helps with the pain Dixie Grimaldo, RN 01/27/2025 8:29 AM Signed Called patient [...] RN - Fully Assessed Reason for Visit: Patient Question [8547] Cmt: Patient was in ER today in [place] states [...] (GIMOTI) 15 mg/spray nasal spray Use 1 [place] in the nose four times daily. Problem [...] without complication (*12/24/2024 Encounter Status:Closed by LAITH MASESY on 01/26/25 Normal [facility] Diff Autoon 01-25-2025 Baso Absolute 0.1 x10*3/mcL Normal 0.0-0.2 [facility] Comment on above: Performed By: #### . Automated Diff #### [address] [address] Basophils/100 WBC (Bld) 0.6 % Normal 0.0-1.5 [facility] Comment on above: Performed By: #### . Automated Diff #### [address] [address] Eos Absolute 0.2 x10*3/mcL Normal 0.0-0.4 [facility] Comment on above: Performed By: #### . Automated Diff #### [address] [address] Eosinophils/100 WBC (Bld) 1.0 % Normal 0.0-5.4 [facility] Comment on above: Performed By: #### . Automated Diff #### [address] [address] Lymph Absolute 3.5 x10*3/mcL Normal 1.0-4.8 [facility] Comment on above: Performed By: #### . Automated Diff #### [address] [address] Lymphocytes/100 WBC (Bld) 22.7 % Low 27.2-40.8 [facility] Comment on above: Performed By: #### . Automated Diff #### [place] [id number] [place] Absolute 0.5 x10*3/mcL Normal 0.1-1.1 [facility] Comment on above: Performed By: #### . Automated Diff #### [address] [address] Monocytes/100 WBC (Bld) 3.3 % Low 3.7-11.9 [facility] Comment on above: Performed By: #### . Automated Diff #### [place] [address] Neutro Absolute 11.3 x10*3/mcL High 1.8-7.7 [facility] Comment on above: Performed By: #### . Automated Diff #### [place] [address] Neutro Auto 72.4 % High 47.2-70.8 [facility] Comment on above: Performed By: #### . Automated Diff #### [address] [address] ED Clinical Summaryon 2024 [place] [address] ED Clinical Summary Person Information Name: Gael Ruby [place] Age: 29 Years : 1995 Sex: Female PCP: Chantel GREWAL, Yossi Bustillo Marital Status: Phone: Race: White Ethnicity: Not or Language: [place] Visit Reason: Abdominal pain; abd pn Acuity: 3 Enc Type: Emergency Med Service: Emergency Medicine Arrival: 01/25/2025 12:04:31 Discharge: 01/25/2025 14:33:00 LOS: 000 02:29 Checkin: 01/25/2025 12:04:31 Checkout: 01/25/2025 14:33:00 Dispo Type: Home or Self Care Address: [address] [place] [phone] Provider Notes: History of Present Illness Patient is a 29 year old female with a history gastroparesis and GERD presenting to the ED complaining of abdominal pain, nausea, and constipation.? Denies any vomiting or diarrhea.? No leg swelling.? Follows with Dr. Gastelum and [facility].? No other complaints at this time. Review [...] _ ? NEXUS C-spine Criteria: _ ? [place] Ankle Rule: _ ? [place] Knee Rule: _ ? [place] Criteria for [...] HSV Depress (more content not included)... Normal [facility] ED Note-Physicianon 01-26-20 ED Note-Physician Chief Complaint abdominal pain, nausea, smokes marijuana daily. History of Present Illness Patient is a 29 year old female with a history gastroparesis and GERD presenting to the ED complaining of abdominal pain, nausea, and constipation. Denies any vomiting or diarrhea. No leg swelling. Follows with Dr. Gastelum and [facility]. No other complaints at this time. Review [...] in this document, created by the medical economics consultant for me, accurately reflects the services I [...] _ ? NEXUS C-spine Criteria: _ ? [place] Ankle Rule: _ ? [place] Knee Rule: _ ? [place] Criteria for [...] Dose: 01/25/25 12:34:00 EDT, Dispense From Location: [facility], 01/25/25 12:34:00 EDT Disch (more content not included)... Normal [facility] Lipaseon 01-25-2025 Lipase Lvl 38 IU/L Normal 22-51 [facility] Comment on above: Performed By: #### . Automated Diff #### [address] [address] UA w Culture if Indon 2024 Color (U) Yellow Normal Yellow [facility] Comment on above: Performed By: #### U CI #### [address] [address] Ketones Ql (U) Negative Normal Negative [facility] Comment on above: Performed By: #### U CI #### [address] [address] UA Blood Negative Normal Negative [facility] Comment on above: Performed By: #### U CI #### [address] [address] UA Clarity Clear Normal Clear [facility] Comment on above: Performed By: #### U CI #### [address] [address] UA Glucose Normal Normal Negative [facility] Comment on above: Performed By: #### U CI #### [address] [place] [address] UA Leukocyte Esterase Negative Normal Negative [facility] Comment on above: Performed By: #### U CI #### [address] [address] UA Nitrite Negative Normal Negative [facility] Comment on above: Performed By: #### U CI #### [address] [address] UA pH 6.5 Normal 4.5 - 7.8 [facility] Comment on above: Performed By: #### U CI #### [address] [place] [address] UA Protein Negative Normal Negative [facility] Comment on above: Performed By: #### U CI #### [address] [address] UA Source Clean Catch Normal [facility] Comment on above: Performed By: #### U CI #### [facility] [address] [place] [address] UA Spec Grav 1.024 Normal 1.003-1.035 [facility] Comment on above: Performed By: #### U CI #### [facility] [address] [place] [address] UA Urobilinogen Normal Normal 0.2 - 1.0 [facility] Comment on above: Performed By: #### U CI #### [facility] [address] [place] [address] Urobilinogen (U) [Mass/Vol] Negative Normal Negative [facility] Comment on above: Performed By: #### U CI #### [address] [address] [facility] 01-22-2025 [facility] Telephone (GENSSP) GAEL RUBY ([id number]) 1995 F Date Time Provider Department 01/22/25 YAJAIRA LACKEY [facility] During your visit today, we recorded the following information about you: Donna Saini RN 01/22/2025 11:43 AM Signed PA for Gimoti (renewal) submitted to [employer] via facsimile at [phone]. Awaiting response from [employer] [place] [employer]. Patient has been being treated with Gimoti/Metoclopramide Nasal [place] since 12/02/2024 and it works best for [...] Reglan. Called and spoke with Varsha at [facility] and they will call insurance to see why was denied. Denial letter faxed to [facility] with fax verification received. Denial letter scanned into patient's chart. Called [place] [employer] at [phone] and spoke with sales promotion representative and an expedited appeal (response in [...] Fully Assessed Reason for Visit: Medication Authorization [8966] Cmt: PA for Gimoti (renewal) Prescriptions as [...] (GIMOTI) 15 mg/spray nasal spray Use 1 [place] in the nose four times daily. Medication notes this encounter GIMOTI 15 MG/SPRAY NASAL SPRAY WITH PUMP >> Donna Saini RN 01/22/2025 11:43 AM >> DONNA SAINI SatJanuary 22, 2025 11:43 AM PA for Gimoti (renewal) submitted to [employer] via facsimile at [phone]. Awaiting response from [employer] [place] [employer]. Problem [...] Status:Closed by DONNA SAINI on 01/22/25 Normal [facility] .UA Microscp Aon 01-18-2025 UA Mucus Present Normal Absent [facility] Comment on above: Performed By: #### . Automated Diff #### [facility] [address] [place] [address] UA RBC Quant 0 /HPF Normal 0-5 [facility] Comment on above: Performed By: #### . Automated Diff #### [facility] [address] [place] [address] UA Squepi Cells Quant <1 Normal 0-29 [facility] Comment on above: Performed By: #### . Automated Diff #### [place] [address] [place] [address] UA WBC Quant 0 /HPF Normal 0-5 [facility] Comment on above: Performed By: #### . Automated Diff #### [place] [address] [place] [address] .eGFRon 01-18-2025 GFR/1.73 sq M.predicted MDRD (S/P/Bld) [Vol rate/Area] mL/min/{1.73_m2} Normal >=60 [facility] Comment on above: Result Comment: [facility] have implemented the eGFR calculation [...] By: #### . Urinalysis Microscopic Auto #### [address] [address] CBC w/ Diffon 01-18-2025 Erythrocyte distribution width (RBC) [Ratio] 14.0 % Normal 11.6-14.8 [facility] Comment on above: Performed By: #### C BC #### [address] [address] Hematocrit (Bld) [Volume fraction] 44.3 % Normal 36.0-46.0 [facility] Comment on above: Performed By: #### C BC #### [address] [address] Hemoglobin (Bld) [Mass/Vol] 15.1 g/dL Normal 12.0-16.0 [facility] Comment on above: Performed By: #### C BC #### [address] [address] MCH (RBC) [Entitic mass] 30.0 pg Normal 27.0-35.0 [facility] Comment on above: Performed By: #### C BC #### [address] [address] MCHC 34.2 % Normal 31.0-37.0 [facility] Comment on above: Performed By: #### C BC #### [address] [address] MCV (RBC) [Entitic vol] 87.8 fL Normal 80.0-100.0 [facility] Comment on above: Performed By: #### C BC #### [address] [address] Platelet 344 x10*3/mcL Normal 150-450 [facility] Comment on above: Performed By: #### C BC #### [address] [address] Platelet mean volume (Bld) [Entitic vol] 8.4 fL Normal 6.7-10.6 [facility] Comment on above: Performed By: #### C BC #### [address] [address] RBC 5.04 x10*6/mcL Normal 3.80-5.20 [facility] Comment on above: Performed By: #### C BC #### [address] [address] WBC 12.5 x10*3/mcL High 4.5-11.0 [facility] Comment on above: Performed By: #### C BC #### [address] [address] CMPon 01-18-2025 Albumin [Mass/Vol] 3.6 g/dL Normal 3.2-4.9 [facility] Comment on above: Performed By: #### . Automated Diff #### [address] [address] Albumin/Globulin [Mass ratio] 1.0 {ratio} Low 1.1-2.2 [facility] Comment on above: Performed By: #### . Automated Diff #### [address] [address] Alk Phos 72 IU/L Normal 32-91 [facility] Comment on above: Performed By: #### . Automated Diff #### [address] [address] ALT [Catalytic activity/Vol] 34 U/L Normal 14-54 [facility] Comment on above: Performed By: #### . Automated Diff #### [address] [address] Anion gap [Moles/Vol] 8 mmol/L Normal 4-12 [facility] Comment on above: Performed By: #### . Automated Diff #### [address] [address] AST [Catalytic activity/Vol] 27 U/L Normal 15-41 [facility] Comment on above: Performed By: #### . Automated Diff #### [address] [address] Bili Total 0.9 mg/dL Normal 0.3-1.2 [facility] Comment on above: Performed By: #### . Automated Diff #### [address] [address] Calcium [Mass/Vol] 9.2 mg/dL Normal 8.5-10.3 [facility] Comment on above: Performed By: #### . Automated Diff #### [address] [address] Chloride [Moles/Vol] 104 mmol/L Normal 98-110 [facility] Comment on above: Performed By: #### . Automated Diff #### [address] [address] CO2 [Moles/Vol] 24 mmol/L Normal 22-32 [facility] Comment on above: Performed By: #### . Automated Diff #### [address] [address] Creatinine [Mass/Vol] 0.77 mg/dL Normal 0.44-1.03 [facility] Comment on above: Performed By: #### . Automated Diff #### [address] [address] Glucose [Mass/Vol] 200 mg/dL High 70-99 [facility] Comment on above: Performed By: #### . Automated Diff #### [address] [address] Potassium [Moles/Vol] 4.2 mmol/L Normal 3.4-4.8 [facility] Comment on above: Performed By: #### . Automated Diff #### [address] [address] Protein [Mass/Vol] 7.1 g/dL Normal 6.5-8.1 [facility] Comment on above: Performed By: #### . Automated Diff #### [address] [address] Sodium [Moles/Vol] 136 mmol/L Normal 133-142 [facility] Comment on above: Performed By: #### . Automated Diff #### [address] [address] Urea nitrogen [Mass/Vol] 9 mg/dL Normal 8-26 [facility] Comment on above: Performed By: #### . Automated Diff #### [address] [address] Urea nitrogen/Creatinine [Mass ratio] 11.7 mg/mg Normal 10.0-20.0 [facility] Comment on above: Performed By: #### . Automated Diff #### [address] [address] Diff Autoon 01-18-2025 Baso Absolute 0.1 x10*3/mcL Normal 0.0-0.2 [facility] Comment on above: Performed By: #### . Automated Diff #### [address] [address] Basophils/100 WBC (Bld) 1.0 % Normal 0.0-1.5 [facility] Comment on above: Performed By: #### . Automated Diff #### [address] [address] Eos Absolute 0.2 x10*3/mcL Normal 0.0-0.4 [facility] Comment on above: Performed By: #### . Automated Diff #### [address] [address] Eosinophils/100 WBC (Bld) 1.5 % Normal 0.0-5.4 [facility] Comment on above: Performed By: #### . Automated Diff #### [address] [address] Lymph Absolute 4.3 x10*3/mcL Normal 1.0-4.8 [facility] Comment on above: Performed By: #### . Automated Diff #### [address] [address] Lymphocytes/100 WBC (Bld) 34.7 % Normal 27.2-40.8 [facility] Comment on above: Performed By: #### . Automated Diff #### [address] [address] [place] Absolute 0.6 x10*3/mcL Normal 0.1-1.1 [facility] Comment on above: Performed By: #### . Automated Diff #### [address] [address] Monocytes/100 WBC (Bld) 5.0 % Normal 3.7-11.9 [facility] Comment on above: Performed By: #### . Automated Diff #### [address] [address] Neutro Absolute 7.2 x10*3/mcL Normal 1.8-7.7 [facility] Comment on above: Performed By: #### . Automated Diff #### [address] [address] Neutro Auto 57.8 % Normal 47.2-70.8 [facility] Comment on above: Performed By: #### . Automated Diff #### [address] [address] ED Clinical Summaryon 2024 ED Clinical Summary [address] [id number] ED Clinical Summary Person Information Name: Gael Ruby Josep/[facility] Age: 29 Years : 1995 Sex: Female PCP: Yossi Golden MD Marital Status: Race: White Ethnicity: Not or Language: [place] Visit Reason: Abdominal pain; abdominal surgery Acuity: 3 Enc Type: Emergency Med Service: Emergency Medicine Arrival: 01/18/2025 18:50:49 Discharge: 01/18/2025 20:23:00 LOS: 000 01:33 Checkin: 01/18/2025 18:50:49 Checkout: 01/18/2025 20:23:00 Dispo Type: Home or Self Care Address: [address] [place] [phone] Provider Notes: History of Present Illness Patient is a 29 year old female with a history of gastroparesis presenting to the ED complaining of epigastric and right upper quadrant pain onset few days ago and worsening since initial onset.? Patient mention she had a Pap procedure for her gastroparesis at the [facility] last week and has been on a [...] colitis, acute diverticulitis,?inflam atory ?bowel disease ? [facility] Data External documents reviewed: _Cerner documentation My EKG interpretation: _ My CT interpretation: _ My X-ray interpretation: _ My Ultrasound interpretation: _ Decision rules/scores evaluated: _ Discussed with: _ ? Decision rules/scores evaluated: _ ? HEART Score: Not Completed ? PERC Rule: _ ? NEXUS C-spine Criteria: _ ? [place] Ankle Rule: _ ? [place] Knee Rule: _ ? [place] Criteria for [...] The patie (more content not included)... Normal [facility] ED Note-Physicianon 01-18- 25 ED Note-Physician Chief Complaint Patient here with upper abdominal pain. Patient had POP surgery at [facility] last week. Patient had some [...] Pap procedure for her gastroparesis at the [facility] last week and has been on a [...] in this document, created by the medical economics consultant for me, accurately reflects the services I [...] _ ? NEXUS C-spine Criteria: _ ? [place] Ankle Rule: _ ? [place] Knee Rule: _ ? [place] Criteria for [...] appropriate follo (more content not included)... Normal [facility] Lipaseon 01-18-2025 Lipase Lvl 45 IU/L Normal 22-51 [facility] Comment on above: Performed By: #### . Automated Diff #### [facility] [address] [place] [address] UA w Culture if Indon 2024 Color (U) Yellow Normal Yellow [facility] Comment on above: Performed By: #### . Automated Diff #### [place] [id number] Glucose (U) [Mass/Vol] 70 mg/dL Abnormal Negative [facility] Comment on above: Performed By: #### . Automated Diff #### [address] [address] Ketones Ql (U) Negative Normal Negative [facility] Comment on above: Performed By: #### . Automated Diff #### [address] [address] UA Blood Negative Normal Negative [facility] Comment on above: Performed By: #### . Automated Diff #### [place] [id number] UA Clarity Clear Normal Clear [facility] Comment on above: Performed By: #### . Automated Diff #### [place] [id number] UA Leukocyte Esterase Negative Normal Negative [facility] Comment on above: Performed By: #### . Automated Diff #### [address] [address] UA Nitrite Negative Normal Negative [facility] Comment on above: Performed By: #### . Automated Diff #### [address] [address] UA pH 6.0 Normal 4.5 - 7.8 [facility] Comment on above: Performed By: #### . Automated Diff #### [address] [address] UA Protein Negative Normal Negative [facility] Comment on above: Performed By: #### . Automated Diff #### [address] [address] UA Source Clean Catch Normal [facility] Comment on above: Performed By: #### . Automated Diff #### [address] [address] UA Spec Grav 1.026 Normal 1.003-1.035 [facility] Comment on above: Performed By: #### . Automated Diff #### [address] [place] [address] UA Urobilinogen 2 mg/dL Abnormal 0.2 - 1.0 [facility] Comment on above: Performed By: #### . Automated Diff #### [address] [address] Urobilinogen (U) [Mass/Vol] Negative Normal Negative [facility] Comment on above: Performed By: #### . Automated Diff #### [address] [address] ANES POSTPROC EVALon 025 ANES POSTPROC EVAL HNO ID: [id number] Author: BRUNO ALCANTARA DO Service: Anesthesiology Author Type: Anesthesiologist Type: Anesthesia Postprocedure Evaluation Filed: 01/13/2025 13:40 Note Text: POST ANESTHESIA EVALUATION NOTE : 1995 Procedure Summary Date: 01/13/25 Room / Location: [facility] Anesthesia Start: 804 Anesthesia Stop: 909 Procedure: [...] January 13, 2025 TIME: 1:40 PM CSN: [id number] Normal [facility] ANES PRE-OPon 01-13-2025 ANES PRE-OP HNO ID: [id number] Author: BRUNO ALCANTARA DO Service: Anesthesiology Author Type: Anesthesiologist Type: Anesthesia Preprocedure Evaluation Filed: 01/13/2025 07:13 Note Text: ANESTHESIOLOGY DAY OF SURGERY NOTE : 1995 Procedure Information Date/Time: 01/13/25 0730 Scheduled providers: Ronaldo Sánchez DO Procedure: EGD - THERAPEUTIC, EUS, OR TUBE INTERVENTIONS Location: [facility] Estimated body mass index is 37.11 kg/m? [...] and consent discussed: yes. Patient / Responsible Alliance Party agrees to proceed: yes Patient / Surrogate agrees to blood products: blood products not planned Significant changes in the patient condition since the History and Physical, not otherwise documented in primary service progress note: no. Potential Anesthesia issues that may suggest increased risk of complications or contraindication to planned procedure: none. Vitals Value Taken Time BP 149/89 01/13/25 0620 Pulse 82 01/13/25 0620 Resp 16 01/13/25 0620 Temp 36.4 ?C (97.5 ?F) 01/13/25 0620 SpO2 96 % 01/13/2520 Outpatient Medications as of 01/13/2025 Medication Sig [...] (GIMOTI) 15 mg/spray nasal spray Use 1 [place] in the nose four times daily. sucralfate [...] Gael Ruby DATE: January 13, 2025 TIME: 7:13 AM CSN: [id number] [facility] HISTORY PHYSICALon HISTORY PHYSICAL HNO ID: [id number] Author: WOODROW ROMERO PA-C Service: Urology Author Type: Physician Principal Ios Developer Type: H&P Filed: 01/13/2025 06:57 Note [...] with POP. Medication reconciliation list reviewed in [facility]. Past medical history, past surgical history, social history and family history reviewed and updated in [facility]. ALLERGIES Allergen Reactions Ketorolac Itching, Shortness of [...] SIGNATURE: Woodrow Romero PA-C PATIENT NAME: Gael Ruby DATE: January 13, 2025 TIME: 6:34 AM [facility] Pathology biopsy report Kenan (Tiss)on 01-13-2025 ADDENDUM 1: [facility] Comment on above: Order Comment: Speci men Type: BLOOD SPECIMEN Ordering Facility: [facility] Address: [address] [place] [address] Result Comment: A. A n immunohistochemical stain for Helicobacter is negative. Laboratory Developed Test (LDT) Disclaimer: Performance characteristics of immunohistochemical, immunofluorescent and chromogenic in-situ hybridization tests have been determined by the performing laboratory within [facility]???s Malena Angel Pathology and Laboratory Medicine Department ([facility], [facility], [facility], [facility], [facility], On License Of [facility], or [facility]) in a manner consistent with CLIA requirements. [...] EDT Performed By: #### 2 458-8, 2465-3, 247-9 #### [facility] CLIA [id number] [address] [place] [address] [place] AP DISCLAIMER [facility] Comment on above: Order Comment: Speci men Type: BLOOD SPECIMEN Ordering Facility: [facility] Address: [address] [place] [address] Result Comment: Lyn hutchinson Developed Test (LDT) Disclaimer: Performance characteristics of immunohistochemical, immunofluorescent, and chromogenic in-situ hybridization tests have been determined by the performing laboratory within [facility]'s [facility] Pathology and Laboratory Medicine Department ([facility], [facility], [facility], [facility], [facility], [facility], or [facility]) in a manner consistent with CLIA requirements. One or more of these tests may not have been cleared or approved by the FDA. [facility] is regulated under CLIA as qualified to perform high-complexity testing. These tests are used for clinical purposes. These should not be regarded as investigational or for research. Positive and negative controls stain appropriately. Performed By: #### 2 458-8, 2465-3, 2471-9 #### [facility] CLIA [id number] [address] [place] [address] [place] CASE REPORT Normal [facility] Comment on above: Order Comment: Speci men Type: BLOOD SPECIMEN Ordering Facility: [facility] Address: [address] [place] [address] Result Comment: Surg ical Pathology Report Case: [id number] Authorizing Provider: Ronaldo Sánchez DO Collected: 01/13/2025 08:50 AM Ordering Location: [facility] Received: 01/13/2025 10:23 AM [facility] Pathologist: Roel Banda MD Specimens: A) - Stomach, Biopsy B) - Esophagus, Mid, Biopsy Performed By: #### 2 458-8, 2465-3, 2472-9 #### [facility] CLIA [id number] [address] [place], [place] [address] [place] CLINICAL HISTORY Normal [facility] Comment on above: Order Comment: Speci haseeb Type: BLOOD SPECIMEN Ordering Facility: [facility] Address: [address] [place] [address] Result Comment: A) R /O H. PYLORI B) R/O EOE Performed By: #### 2 458-8, 2465-3, 835-9 #### [facility] CLIA [id number] [address] [place] [address] FINAL DIAGNOSIS Normal [facility] Comment on above: Order Comment: Speci haseeb Type: BLOOD SPECIMEN Ordering Facility: [facility] Address: [address] [place] [address] Result Comment: Sammy daigle, biopsy: - Antral mucosa with chronic inactive gastritis. - No morphologic evidence of Helicobacter. B. Esophagus, mid, biopsy: - Squamous mucosa with mild reactive changes. - No increase in intraepithelial eosinophils identified. at 1249 EDT Performed By: #### 2 458-8, 2465-3, 6452-9 #### [facility] CLIA [id number] [address] [place] [address] OF [facility] FINAL PERFORMING LAB Normal [facility] Comment on above: Order Comment: Speci men Type: BLOOD SPECIMEN Ordering Facility: [facility] Address: [address] [place] [address] Result Comment: Diag nostic interpretation performed at: [facility], [address] [place], [place] [id number] CLIA# [id number] [employer] Set Up Technician: Jasmeet Hagan MD Performed By: #### 2 458-8, 2465-3, 9 #### [facility] CLIA [id number] [address] [place] [address] [place] GROSS DESCRIPTION Normal [facility] Comment on above: Order Comment: Speci men Type: BLOOD SPECIMEN Ordering Facility: [facility] Address: [address] [place] [address] Result Comment: A. S tomach, Biopsy Received in formalin are two pieces of rodriguze and rodriguez-red, soft tissue aggregating to 0.9 x 0.2 x 0.2 cm. Totally submitted in one cassette. B. Esophagus, Mid, Biopsy Received in formalin are two pieces of rodriguez-white and red, soft tissue aggregating to 0.8 x 0.3 x 0.1 cm. Totally submitted in one cassette. AJB January 13, 2025 12:45 PM Gross examination performed at [facility], [address] [place] [address] Performed By: #### 2 458-8, 3, 9 #### [facility] CLIA [id number] [address] [place] [address] [place] Upper GI endoscopyon 01-13- 025 Upper GI endoscopy [facility] Gastrointestinal Endoscopy Patient Name: Gael Ruby Procedure Date: 01/13/2025 6:48 AM Date of : 1995 Admit Type: Outpatient Age: 29 Room: [place] [address] Gender: Female Note Status: Finalized Attending MD: Ronaldo Sánchez MD, [id number] Procedure: Upper GI endoscopy Indications: Gastroparesis, For [...] by the physician, the nurse and the marine habitat resource specialist in the pre-procedure area in the endoscopy [...] was done by the physician, nurse and extracorporeal technician using the patient's name, date and medical record number. Bilious fluid was found in the stomach. Patchy mild inflammation characterized by erosions was found in the stomach. Biopsies were taken with a cold forceps for Helicobacter pylori testing. Verification of patient identification for the specimen was done by the physician, nurse and extracorporeal technician using the patient's name, date and [...] Gastritis, c (more content not included)... Normal [facility] CBC with Diffon 01-01-2025 Basophils (Bld) [#/Vol] 0.05 10*3/uL [facility] Basophils/100 WBC (Bld) 0 % 0 - 2 % [facility] Eosinophils (Bld) [#/Vol] 0.12 10*3/uL [facility] Eosinophils/100 WBC (Bld) 1 % 1 - 4 % [facility] Erythrocyte distribution width (RBC) [Ratio] 13.5 % 11.8 - 14.4 % [facility] Hematocrit (Bld) [Volume fraction] 44.9 % 36.3 - 47.1 % [facility] Hemoglobin (Bld) [Mass/Vol] 15.3 g/dL High 11.9 - 15.1 g/dL [facility] Immature granulocytes (Bld) [#/Vol] 0.04 10*3/uL [facility] Immature granulocytes/100 WBC (Bld) 0 % 0 [facility] Interpretation and review of laboratory results Abnormal [facility] Lymphocytes/100 WBC (Bld) 39 % 24 - 43 % [facility] Lymphocytes/100 WBC (Bld) 4.59 % High [facility] MCH (RBC) [Entitic mass] 29.8 pg 25.2 - 33.5 pg [facility] MCHC (RBC) [Mass/Vol] 34.1 g/dL 28.4 - 34.8 g/dL [facility] MCV (RBC) [Entitic vol] 87.4 fL 82.6 - 102.9 fL [facility] Monocytes/100 WBC (Bld) 6 % 3 - 12 % [facility] Monocytes/100 WBC (Bld) 0.75 % [facility] Neutrophils/100 WBC (Bld) 54 % 36 - 65 % [facility] Nucleated RBC/100 WBC (Bld) [Ratio] 0 % 0.0 per 100 WBC [facility] Platelet mean volume (Bld) [Entitic vol] 10.4 fL 8.1 - 13.5 fL [facility] Platelets (Bld) [#/Vol] 313 10*3/uL [facility] RBC (Bld) [#/Vol] 5.14 10*6/uL High 3.95 - 5.1 1 m/uL [facility] Segmented neutrophils/100 WBC (Bld) 6.29 % [facility] WBC other (Bld) [#/Vol] 11.8 High [facility] Abs. Basophil 0.05 k/uL Normal 0.00-0.20 [facility] Comment on above: Performed By: #### L ANA HAYS, CDP #### [facility] [address] [place] [address] Product Strategy Director: Murtaza Arceo MD Abs.Imm.Granulocyte 0.04 k/uL Normal 0.00-0.30 [facility] Comment on above: Performed By: #### L ANA HAYS, CDP #### [facility] [address] [place], [place] [address] Product Strategy Director: Murtaza Arceo MD Abs.Neutrophil (Seg) 6.29 k/uL Normal 1.50-8.10 [facility] Comment on above: Performed By: #### L IP, CP, CDP #### [address] [place], [facility] Product Strategy Director: Murtaza Arceo MD Basophils/100 WBC (Bld) 0 % Normal 0-2 [facility] Comment on above: Performed By: #### L IP, CP, CDP #### [address] [place], [facility] Product Strategy Director: Murtaza Arceo MD Eosinophils (Bld) [#/Vol] 0.12 10*3/uL Normal 0.00-0.44 [facility] Comment on above: Performed By: #### L IP, CP, CDP #### [address] [place], [place] [address] Product Strategy Director: Murtaza Arceo MD Eosinophils/100 WBC (Bld) 1 % Normal 1-4 [facility] Comment on above: Performed By: #### L IP, CP, CDP #### [address] [place], [facility] Product Strategy Director: Murtaza Arceo MD Erythrocyte distribution width (RBC) [Ratio] 13.5 % Normal 11.8-14.4 [facility] Comment on above: Performed By: #### L IP, CP, CDP #### [address] [place], [facility] Product Strategy Director: Murtaza Arceo MD Hematocrit (Bld) [Volume fraction] 44.9 % Normal 36.3-47.1 [facility] Comment on above: Performed By: #### L IP, CP, CDP #### [address] [place], [facility] Product Strategy Director: Murtaza Arceo MD Hemoglobin (Bld) [Mass/Vol] 15.3 g/dL High 11.9-15.1 [facility] Comment on above: Performed By: #### L ANA HAYS, CDP #### [address] [place], [place] [id number] Product Strategy Director: Murtaza Arceo MD Immature granulocytes/100 WBC (Bld) 0 % Normal 0 [facility] Comment on above: Performed By: #### L SAÚL CP, CDP #### [address] [place] [address] Product Strategy Director: Murtaza Arceo MD Lymphocytes (Bld) [#/Vol] 4.59 10*3/uL High 1.10-3.70 [facility] Comment on above: Performed By: #### L SAÚL CP, CDP #### [address] [place], [facility] Product Strategy Director: Murtaza Arceo MD Lymphocytes/100 WBC (Bld) 39 % Normal 24-43 [facility] Comment on above: Performed By: #### L ANA HAYS, CDP #### [address] [place], [place] [id number] Product Strategy Director: Murtaza Arceo MD MCH (RBC) [Entitic mass] 29.8 pg Normal 25.2-33.5 [facility] Comment on above: Performed By: #### L ANA HAYS, CDP #### [address] [place], [place] [id number] Product Strategy Director: Murtaza Arceo MD MCHC (RBC) [Mass/Vol] 34.1 g/dL Normal 28.4-34.8 [facility] Comment on above: Performed By: #### L IP CP, CDP #### [address] [place], [place] [id number] Product Strategy Director: Murtaza Arceo MD MCV (RBC) [Entitic vol] 87.4 fL Normal 82.6-102.9 [facility] Comment on above: Performed By: #### L IP, CP, CDP #### [facility] [address] [place], [place] [id number] Product Strategy Director: Murtaza Arceo MD Monocytes (Bld) [#/Vol] 0.75 10*3/uL Normal 0.10-1.20 [facility] Comment on above: Performed By: #### L IP, CP, CDP #### [facility] [address] [place], [place] [address] Product Strategy Director: Murtaza Arceo MD Monocytes/100 WBC (Bld) 6 % Normal 3-12 [facility] Comment on above: Performed By: #### L IP, CP, CDP #### [address] [place], [facility]83 Product Strategy Director: Murtaza Arceo MD Neutrophil (Seg) 54 % Normal 36-65 [facility] Comment on above: Performed By: #### L IP CP, CDP #### [address] [place], [facility]83 Product Strategy Director: Murtaza Arceo MD NRBC Automated 0.0 per 100 WBC Normal 0.0 [facility] Comment on above: Performed By: #### L IP, CP, CDP #### [address] [place], [facility]83 Product Strategy Director: Murtaza Arceo MD Platelet mean volume (Bld) [Entitic vol] 10.4 fL Normal 8.1-13.5 [facility] Comment on above: Performed By: #### L IP, CP, CDP #### [address] [place], [place] [address] Product Strategy Director: Murtaza Arceo MD Platelets (Bld) [#/Vol] 313 10*3/uL Normal 138-453 [facility] Comment on above: Performed By: #### L IP, CP, CDP #### [facility] [address] [place] [address] Product Strategy Director: Murtaza Arceo MD RBC (Bld) [#/Vol] 5.14 10*6/uL High 3.95-5.11 [facility] Comment on above: Performed By: #### L ANA HAYS, CDP #### [facility] [address] [place] [address] Product Strategy Director: Murtaza Arceo MD WBC (Bld) [#/Vol] 11.8 10*3/uL High 3.5-11.3 [facility] Comment on above: Performed By: #### L ANA HAYS, CDP #### [facility] [address] [place] [address] Product Strategy Director: Murtaza Arceo MD [facility] 01-01-2025 Albumin [Mass/Vol] 4.1 g/dL 3.5 - 5.2 g/dL [facility] Albumin/Globulin [Mass ratio] 1.4 {ratio} 1.0 - 2.5 [facility] ALP [Catalytic activity/Vol] 86 U/L 35 - 104 U/L [facility] ALT [Catalytic activity/Vol] 36 U/L High 10 - 35 U/L [facility] Anion gap [Moles/Vol] 13 mmol/L 9 - 16 mmol/L [facility] AST [Catalytic activity/Vol] 29 U/L 10 - 35 U/L [facility] Bilirubin [Mass/Vol] 0.4 mg/dL 0.00 - 1.20 mg/dL [facility] Calcium [Mass/Vol] 10 mg/dL 8.6 - 10. 4 mg/dL [facility] Chloride [Moles/Vol] 104 mmol/L 98 - 10 7 mmol/L [facility] CO2 [Moles/Vol] 25 mmol/L 20 - 31 mmol/L [facility] Creatinine [Mass/Vol] 0.7 mg/dL 0.50 - 0.90 mg/dL [facility] Est, Amarilis Shanks Rate - PINF Bon S [facility] Comment on above: These results are not [...] 114 mg/dL High 74 - 99 mg/dL [facility] Potassium [Moles/Vol] 3.5 mmol/L Low 3.7 - 5.3 mmol/L [facility] Protein [Mass/Vol] 7.1 g/dL 6.6 - 8.7 g/dL [facility] Sodium [Moles/Vol] 142 mmol/L 136 - 145 mmol/L [facility] Urea nitrogen [Mass/Vol] 9 mg/dL 6 - 20 mg/dL [facility] Urea nitrogen/Creatinine [Mass ratio] 13 mg/mg 9 - 20 [facility] Comp Metabolic Profon 2024 Albumin [Mass/Vol] 4.1 g/dL Normal 3.5-5.2 [facility] Comment on above: Performed By: #### U [facility] #### [facility] [address] [place] [address] Product Strategy Director: Murtaza Arceo MD Albumin/Glob Ratio 1.4 Normal 1.0-2.5 [facility] Comment on above: Performed By: #### U [facility], UMICAO #### [facility] [address] [place] [address] Product Strategy Director: Murtaza Arceo MD Alkaline Phos 86 U/L Normal 35-104 [facility] Comment on above: Performed By: #### U [facility], UMICAO #### [facility] [address] [place] [address] Product Strategy Director: Murtaza Arceo MD ALT [Catalytic activity/Vol] 36 U/L High -35 [facility] Comment on above: Performed By: #### U AX CG, UMICAO #### [facility] [address] [place], [place] [id number] Product Strategy Director: Murtaza Arceo MD Anion gap [Moles/Vol] 13 mmol/L Normal 9-16 [facility] Comment on above: Performed By: #### U AX, UHCG, UMICAO #### [facility] [address] [place], [place] [id number] Product Strategy Director: Murtaza Arceo MD AST [Catalytic activity/Vol] 29 U/L Normal [facility] Comment on above: Performed By: #### U DORIS LOJACG, UMICAO #### [facility] [address] [place], [place] [id number] Product Strategy Director: Murtaza Arceo MD Bilirubin [Mass/Vol] 0.4 mg/dL Normal 0.00-1.20 [facility] Comment on above: Performed By: #### U FREEDOM CG, UMICAO #### [facility] [address] [place] [address] [place], [place] [id number] Product Strategy Director: Murtaza Arceo MD BUN/CRE Ratio 13 Normal -20 [facility] Comment on above: Performed By: #### U AX, UHCG, UMICAO #### [facility] [address] [place], [place] [address] Product Strategy Director: Murtaza Arceo MD Calcium [Mass/Vol] 10.0 mg/dL Normal 8.6-10.4 [facility] Comment on above: Performed By: #### U AX, UHCG, UMICAO #### [facility] [address] [place] [address] Product Strategy Director: Murtaza Arceo MD Chloride [Moles/Vol] 104 mmol/L Normal 98-107 [facility] Comment on above: Performed By: #### U AX, CG, UMICAO #### [facility] [address] [place] [address] Product Strategy Director: Murtaza Arceo MD CO2 [Moles/Vol] 25 mmol/L Normal 20-31 [facility] Comment on above: Performed By: #### U AX, CG, UMICAO #### [facility] [address] [place], [place] [address] Product Strategy Director: Murtaza Arceo MD Creatinine [Mass/Vol] 0.7 mg/dL Normal 0.50-0.90 [facility] Comment on above: Performed By: #### U AX CG, UMICAO #### [facility] [address] [place] [address] Product Strategy Director: Murtaza Arceo MD GFR/1.73 sq M.predicted among non-blacks MDRD (S/P/Bld) [Vol rate/Area] mL/min/{1.73_m2} Normal >60 [facility] Comment on above: Result Comment: These [...] affects renal tubular secretion. Performed By: #### U AX, UHCG, UMICAO #### [facility] [address] [place] [address] Product Strategy Director: Murtaza Arceo MD Glucose [Mass/Vol] 114 mg/dL High 74-99 [facility] Comment on above: Performed By: #### U AX, UHCG, UMICAO #### [facility] [address] [place] [address] Product Strategy Director: Murtaza Arceo MD Potassium [Moles/Vol] 3.5 mmol/L Low 3.7-5.3 [facility] Comment on above: Performed By: #### U AX [facility], [facility] #### [facility] [address] [place] [address] [place], [place] [id number] Product Strategy Director: Murtaza Arceo MD Protein [Mass/Vol] 7.1 g/dL Normal 6.6-8.7 [facility] Comment on above: Performed By: #### U [facility], [facility] #### [address] [place] [address] Product Strategy Director: Murtaza Arceo MD Sodium [Moles/Vol] 142 mmol/L Normal 136-145 [facility] Comment on above: Performed By: #### U [facility], [facility] #### [address] [place] [address] Product Strategy Director: Murtaza Arceo MD Urea nitrogen [Mass/Vol] 9 mg/dL Normal 6-20 [facility] Comment on above: Performed By: #### U [facility], [facility] #### [address] [place] [address] Product Strategy Director: Murtaza Arceo MD Flu A/B Ag Detectionon 01-01 Flu A Ag Detection Negative Normal NEG [facility] Comment on above: Result Comment: for Influenza A Antigen Performed By: #### [facility] #### [facility] [address] [place] [address] [place] [address] Product Strategy Director: Murtaza Arceo MD Flu B Ag Detection Negative Normal NEG [facility] Comment on above: Result Comment: for Influenza B Antigen. Performed By: #### U AX CG, UMICAO #### [facility] [address] [place] [address] [place] [address] Product Strategy Director: Murtaza Arceo MD Lactic Acidon 01-01-2025 Lactate (BldV) [Moles/Vol] 1.6 mmol/L 0.5 - 2.2 mmol/L [facility] Lactate [Moles/Vol] 1.6 mmol/L Normal 0.5-2.2 [facility] Comment on above: Performed By: #### C DP, CP #### [facility] [address] [place] [address] Product Strategy Director: Murtaza Arceo MD Lipaseon 01-01-2025 Lipase [Catalytic activity/Vol] 65 U/L High 13 - 60 U/L [facility] Lipase [Catalytic activity/Vol] 65 U/L High 13-60 [facility] Comment on above: Performed By: #### U AX, UHCG, UMICAO #### [facility] [address] [place] [address] Product Strategy Director: Murtaza Arceo MD Microscopic Urinalysison Bacteria LM Ql (Urine sed) TRACE Abnormal None [facility] Epithelial cells LM.HPF (Urine sed) [#/Area] 5 TO 10 [facility] Interpretation and review of laboratory results Abnormal [facility] RBC LM.HPF (Urine sed) [#/Area] None [facility] WBC LM.HPF (Urine sed) [#/Area] None [facility] No Panel Informationon 01-01 Interpretation and review of laboratory results Abnormal [facility] Rapid influenza A/B antigens on 01-01-2025 FLUAV Ag Ql (Unsp spec) Negative NEGATIVE [facility] Comment on above: for Influenza A Anti gen FLUBV Ag Ql (Unsp spec) Negative NEGATIVE [facility] Comment on above: for Influenza B Anti gen. [facility] UA w/Reflex Cultureon 2024 Bilirubin, SemiQt,Ur Negative Normal NEG [facility] Comment on above: Performed By: #### U AX, UHCG, UMICAO #### [facility] [address] [place], [place] [id number] Product Strategy Director: Murtaza Arceo MD Blood, Urine Negative Normal NEG [facility] Comment on above: Performed By: #### U AX, UHCG, UMICAO #### [facility] [address] [place], [place] [address] Product Strategy Director: Murtaza Arceo MD Clarity (U) Clear Normal CLEAR [facility] Comment on above: Performed By: #### U AX, UHCG, UMICAO #### [address] [place], [place] [address] Product Strategy Director: Murtaza Arceo MD Color (U) Yellow Normal YEL [facility] Comment on above: Performed By: #### U AX, UHCG, UMICAO #### [facility] [facility] [address] [place] [address] Dr. Yin, [place] [id number] Product Strategy Director: Murtaza Arceo MD Glucose Ql (U) 3+ mg/dL Abnormal NEG [facility] Comment on above: Performed By: #### U AX, UHCG, UMICAO #### [facility] [address] [place] [address] Dr. Yin, [place] [id number] Product Strategy Director: Murtaza Arceo MD Ketones Ql (U) TRACE Abnormal NEG [facility] Comment on above: Performed By: #### U AX, UHCG, UMICAO #### [facility] [address] [place] [address] Dr. Yin, [place] 5942983 Product Strategy Director: Murtaza Arceo MD Leukocyte esterase Test strip Ql (U) Negative Normal NEG [facility] Comment on above: Performed By: #### U AX, UHCG, UMICAO #### [facility] [address] [place] [address] Dr. Yin, [place] [phone] Product Strategy Director: Murtaza Arceo MD Nitrite,Ur Negative Normal NEG [facility] Comment on above: Performed By: #### U AX, [facility] #### [facility] [address] [place] [address] Dr. [place], [place] 1481183 Product Strategy Director: Murtaza Arceo MD PH,Ur 6.0 Normal 5.0-9.0 [facility] Comment on above: Performed By: #### U AX, UHCG, UMICAO #### [facility] [address] [place] [address] [place] [address] Product Strategy Director: Murtaza Arceo MD Protein Ql (U) Negative Normal NEG [facility] Comment on above: Performed By: #### U AX, CG, UMICAO #### [address] [place] 1878083 Product Strategy Director: Murtaza Arceo MD Spec. Onyx,Ur 1.025 High 1.010-1.020 [facility] Comment on above: Performed By: #### U AX, [facility], UM[facility] #### [address] [place] 1878083 Product Strategy Director: Murtaza Arceo MD Urobilinogen,Ur Normal Normal 0.0-1.0 [facility] Comment on above: Performed By: #### U AX, CG, UMICAO #### [address] Yin, [facility] Product Strategy Director: Murtaza Arceo MD Urinalysis with Reflex to Cu ltureon 01-01-2025 Bilirubin Ql (U) Negative NEGATIVE [facility] Clarity (U) Clear Clear [facility] Color (U) Yellow Yellow [facility] Glucose Test strip (U) [Mass/Vol] 3+ Abnormal NEGATIVE mg/dL [facility] Hemoglobin Auto test strip Ql (U) Negative NEGATIVE [facility] Interpretation and review of laboratory results Abnormal [facility] Ketones (U) [Mass/Vol] TRACE Abnormal NEGAT SIMA mg/dL [facility] Leukocyte esterase Test strip Ql (U) Negative NEGATIVE [facility] Nitrite Ql (U) Negative NEGATIVE [facility] pH (U) 6 [pH] 5.0 - 9.0 [facility] Protein (U) [Mass/Vol] Negative NEGAT SIMA mg/dL [facility] Specific gravity (U) [Rel density] 1.025 High 1.010 - 1.020 [facility] Urobilinogen Qn (U) Normal 0.0 - 1. 0 EU/dL [facility] Urinalysis,Microon 5 Bacteria TRACE Abnormal NONE [facility] Comment on above: Performed By: #### U AX, CG, UMICAO #### [facility] [address] [place] [address] [place] [address] Product Strategy Director: Murtaza Arceo MD Epithelial cells LM Ql (Urine sed) 5 TO 10 Normal 0-25 [facility] Comment on above: Performed By: #### U AX, CG, UMICAO #### [facility] [address] [place] [address] [place] [address] Product Strategy Director: Murtaza Arceo MD Urine RBC's None Normal 0-2 [facility] Comment on above: Performed By: #### U AX, UHCG, UMICAO #### [facility] [address] Yin, [facility]83 Product Strategy Director: Murtaza Arceo MD Urine WBC's None Normal 0-5 [facility] Comment on above: Performed By: #### U AX, CG, UMICAO #### [facility] [address] [place] [address] [place] [address] Product Strategy Director: Murtaza Arceo MD HISTORY PHYSICALon 5 HISTORY PHYSICAL HNO ID: [id number] Author: CHAPIN FOOTE APRN.SALESPERSON FLOWERS Service: ? Author Type: Nurse Practitioner Type: [...] 2 diabetes mellitus (HCC) Assessment: Follows with [facility] or PCP No primary care provider on [...] large neck Non-male patient STOP-Bang Score: 2 [id number] Score: Age: <65 Sex: female CHF history: No Hypertension history: Yes Stroke/TIA/thromboembo lism history: No Vascular disease history: No Diabetes history: Yes [id number] Score: 3 ASA Class: 3 I - PHYSICAL EVALUATION AIRWAY Patien (more content not included)... Normal [facility] CNPNon 12-15-2024 CNPN Telephone ([employer]) GAEL RUBY ([id number]) 1995 F Date Time Provider Department 12/15/24 [...] in detail with written copy provided via HRBoss. Discussed meds and pended. No other questions/concerns [...] Fully Assessed Reason for Visit: Care Coordination [4663] Cmt: Schedule procedure and follow up appt Primary Visit Diagnosis:Gastroparesi s [K31.84] Order(s):EGD - THERAPEUTIC, EUS, OR TUBE INTERVENTIONS [GI2] Order #: [id number] FUTURE sucralfate (CARAFATE) 1 gram tabletTake 1 [...] (GIMOTI) 15 mg/spray nasal spray Use 1 [place] in the nose four times daily. Problem [...] Encounter Status:Closed by RONALDO SÁNCHEZ on 12/15/24 [facility] CNCOon 12-07-2024 CNCO Letter Text [facility] CNPNon 12-03-2024 CNPN Telephone ([facility]) GAEL RUBY ([id number]) 1995 F Date Time Provider Department 12/03/24 YAJAIRA LACKEY GAST During your visit today, we recorded the following information about you: Marques Grijalva MA 12/03/2024 2:04 PM Signed Approved Prior authorization approved Payer: [facility] Note from payer: Your PA request for [id number] was approved for 56 days. The PA# assigned is [id number]. Approved Medication: GIMOTI 15 MG NASAL SPRAY Approval Details Authorization number: [id number] Authorized from December 02, 2024 to January [...] by: Yajaira Lackey DO - Fully Assessed Prescriptions as of 12/03/2024 [...] (GIMOTI) 15 mg/spray nasal spray Use 1 [place] in the nose four times daily. Problem List As Of Date: 12/03/2024 (None) Encounter Status:Closed by MARQUES GRIJALVA on 12/03/24 Normal [facility] ACETYLCHOLINE REC BINDING AB on 12-02-2024 ACETYLCHOLINE BINDING, QUAL Negative Normal Negative [facility] Comment on above: Order Comment: Speci men Type: BLOOD SPECIMEN Ordering Facility: [facility] Address: [address] [place] [address] Result Comment: Anti -acetylcholine receptor binding antibody test is used as an aid in diagnosis of myasthenia gravis. A negative result cannot exclude myasthenia gravis. Clinical correlation is required. Performed By: #### A CHRAB #### [facility] CLIA [id number] [address] [place] [address] [place] Acetylcholine receptor binding Ab (S) [Moles/Vol] <0.02 Normal <0.21 [facility] Comment on above: Order Comment: Speci men Type: BLOOD SPECIMEN Ordering Facility: [facility] Address: [address] [place] [address] Performed By: #### A CHRAB #### [facility] CLIA [id number] [address] [place] [address] [place] AMINO ACIDS, PLASMA W/ CONSU LTATIONon 12-02-2024 Alanine [Moles/Vol] 384 umol/L Normal 177-583 [facility] Comment on above: Order Comment: Speci men Type: BLOOD SPECIMEN Ordering Facility: [facility] Address: [address] [place] [address] Performed By: #### 2 458-8, 246-3, 9 #### [facility] CLIA [id number] [address] [place] [address] [place] Alloisoleucine [Moles/Vol] <2 Normal 0-2 [facility] Comment on above: Order Comment: Speci men Type: BLOOD SPECIMEN Ordering Facility: [facility] Address: [address] [place] [address] Performed By: #### 2 458-8, 246-3, 9 #### [facility] CLIA [id number] [address] [place] [address] [place] Alpha aminoadipate [Moles/Vol] <2 Normal 0-6 [facility] Comment on above: Order Comment: Speci men Type: BLOOD SPECIMEN Ordering Facility: [facility] Address: [address] [place] [address] Performed By: #### 2 458-8, 2463, 9 #### [facility] CLIA [id number] [address] [place] [address] [place] AMINO ACID CONSULTATION, PLASMA Normal [facility] Comment on above: Order Comment: Speci men Type: BLOOD SPECIMEN Ordering Facility: [facility] Address: [address] [place] [address] Result Comment: This plasma amino acid analysis shows slightly low levels of several amino acids but is not diagnostic of a specific disorder. Reference intervals from William E, Jazmine MG, Hayes BJ, and Eusebia DK: Biochemical Genetics: A Laboratory Manual, Copyright 1989 by [employer] Reference intervals not established for some amino acids. This test was developed and its performance characteristics determined by the [facility] Department of Pathology and Laboratory Medicine. It has not been cleared or approved by the FDA. The [facility] Department of Pathology and Laboratory Medicine is regulated under CLIA as qualified to perform high-complexity testing. This test is used for clinical purposes. It should not be regarded as investigational or for research. Performed By: #### 2 458-8, 2465-3, 9 #### [facility] CLIA [id number] [address] [place] [address] [place] AMINO ACIDS REVIEW, PLASMA Reviewed by Corky Minaya MD, Ph.D ([id number]) [facility] Comment on above: Order Comment: Speci men Type: BLOOD SPECIMEN Ordering Facility: [facility] Address: [address] [place] [address] Performed By: #### 2 458-8, 246-3, 2472-05 #### [facility] CLIA [id number] [address] [place] [address] [place] Arginine [Moles/Vol] 40 umol/L Normal 15-128 [facility] Comment on above: Order Comment: Speci men Type: BLOOD SPECIMEN Ordering Facility: [facility] Address: [address] [place] [address] Performed By: #### 2 458-8, 246-3, 9 #### [facility] CLIA [id number] [address] [place] [address] [place] Asparagine [Moles/Vol] 29 umol/L Low 35-74 So [facility] Comment on above: Order Comment: Speci men Type: BLOOD SPECIMEN Ordering Facility: [facility] Address: [address] [place] [address] Performed By: #### 2 458-8, 246-3, 9 #### [facility] CLIA [id number] [address] [place] [address] [place] Aspartate [Moles/Vol] 4 umol/L Normal 1-25 [facility] Comment on above: Order Comment: Speci men Type: BLOOD SPECIMEN Ordering Facility: [facility] Address: [address] [place] [address] Performed By: #### 2 458-8, 2464-3, 2472-05 #### [facility] CLIA [id number] [address] [place] [address] [place] Citrulline [Moles/Vol] 27 umol/L Normal 12-55 So [facility] Comment on above: Order Comment: Speci men Type: BLOOD SPECIMEN Ordering Facility: [facility] Address: [address] [place] [address] Performed By: #### 2 458-8, 3, 2472-05 #### [facility] CLIA [id number] [address] [place], [place] [address] [place] Cystine [Moles/Vol] 47 umol/L Normal 5-82 [facility] Comment on above: Order Comment: Speci men Type: BLOOD SPECIMEN Ordering Facility: [facility] Address: [address] [place] [address] Performed By: #### 2 458-8, 3, 2472-05 #### [facility] CLIA [id number] [address] [place] [address] [place] Glutamate [Moles/Vol] 123 umol/L Normal 10-131 [facility] Comment on above: Order Comment: Speci men Type: BLOOD SPECIMEN Ordering Facility: [facility] Address: [address] [place] [address] Performed By: #### 2 458-8, 3, 2472-05 #### [facility] CLIA [id number] [address] [place], [place] [address] [place] Glutamine [Moles/Vol] 515 umol/L Normal 205-756 [facility] Comment on above: Order Comment: Speci men Type: BLOOD SPECIMEN Ordering Facility: [facility] Address: [address] [place], [place] [address] Performed By: #### 2 458-8, 2464-3, 2472-05 #### [facility] CLIA [id number] [address] [place] [address] [place] Glycine [Moles/Vol] 195 umol/L Normal 151-490 [facility] Comment on above: Order Comment: Speci men Type: BLOOD SPECIMEN Ordering Facility: [facility] Address: [address] [place] [address] Performed By: #### 2 458-8, 2465-3, 9 #### [facility] CLIA [id number] [address] [place] [address] [place] Histidine [Moles/Vol] 53 umol/L Low 72-124 [facility] Comment on above: Order Comment: Speci men Type: BLOOD SPECIMEN Ordering Facility: [facility] Address: [address] [place] [address] Performed By: #### 2 458-8, 2465-3, 9 #### [facility] CLIA [id number] [address] [place] [address] [place] Hydroxylysine [Moles/Vol] <2 High <=0 [facility] Comment on above: Order Comment: Speci men Type: BLOOD SPECIMEN Ordering Facility: [facility] Address: [address] [place] [address] Performed By: #### 2 458-8, 2465-3, 2472-05 #### [facility] CLIA [id number] [address] [place] [address] [place] Hydroxyproline [Moles/Vol] <5 Normal 0-53 [facility] Comment on above: Order Comment: Speci men Type: BLOOD SPECIMEN Ordering Facility: [facility] Address: [address] [place] [address] Performed By: #### 2 458-8, 2465-3, 9 #### [facility] CLIA [id number] [address] [place], [place] [address] [place] Isoleucine [Moles/Vol] 59 umol/L Normal 30-108 So [facility] Comment on above: Order Comment: Speci men Type: BLOOD SPECIMEN Ordering Facility: [facility] Address: [address] [place] [address] Performed By: #### 2 458-8, 3, 2472-05 #### [facility] CLIA [id number] [address] [place] [address] [place] Leucine [Moles/Vol] 107 umol/L Normal 72-201 [facility] Comment on above: Order Comment: Speci men Type: BLOOD SPECIMEN Ordering Facility: [facility] Address: [address] [place] [address] Performed By: #### 2 458-8, 3, 2472-05 #### [facility] CLIA [id number] [address] [place] [address] [place] Lysine [Moles/Vol] 164 umol/L Normal 116-296 [facility] Comment on above: Order Comment: Speci men Type: BLOOD SPECIMEN Ordering Facility: [facility] Address: [address] [place] [address] Performed By: #### 2 458-8, 3, 2472-05 #### [facility] CLIA [id number] [address] [place] [address] [place] Methionine [Moles/Vol] 16 umol/L Normal 10-42 So [facility] Comment on above: Order Comment: Speci men Type: BLOOD SPECIMEN Ordering Facility: [facility] Address: [address] [place], [place] [address] Performed By: #### 2 458-8, 3, 2472-05 #### [facility] CLIA [id number] [address] [place], [place] [address] [place] Ornithine [Moles/Vol] 62 umol/L Normal 48-195 [facility] Comment on above: Order Comment: Speci men Type: BLOOD SPECIMEN Ordering Facility: [facility] Address: [address] [place] [address] Performed By: #### 2 458-8, 246-3, 2472-05 #### [facility] CLIA [id number] [address] [place] [address] [place] Phenylalanine [Moles/Vol] 45 umol/L Normal 35-85 [facility] Comment on above: Order Comment: Speci men Type: BLOOD SPECIMEN Ordering Facility: [facility] Address: [address] [place] [address] Performed By: #### 2 458-8, 3, 2472-05 #### [facility] CLIA [id number] [address] [place] [address] [place] Proline [Moles/Vol] 271 umol/L Normal 97-329 [facility] Comment on above: Order Comment: Speci men Type: BLOOD SPECIMEN Ordering Facility: [facility] Address: [address] [place] [address] Performed By: #### 2 458-8, 3, 2472-05 #### [facility] CLIA [id number] [address] [place] [address] [place] Sarcosine [Moles/Vol] <2 High <=0 [facility] Comment on above: Order Comment: Speci men Type: BLOOD SPECIMEN Ordering Facility: [facility] Address: [address] [place] [address] Performed By: #### 2 458-8, 2463, 2472-05 #### [facility] CLIA [id number] [address] [place] [address] [place] Serine [Moles/Vol] 75 umol/L Normal 58-181 [facility] Comment on above: Order Comment: Speci men Type: BLOOD SPECIMEN Ordering Facility: [facility] Address: [address] [place] [address] Performed By: #### 2 458-8, 246-3, 2472-05 #### [facility] CLIA [id number] [address] [place], [place] [address] [place] Taurine [Moles/Vol] 45 umol/L Low 54-210 [facility] Comment on above: Order Comment: Speci men Type: BLOOD SPECIMEN Ordering Facility: [facility] Address: [address] [place] [address] Performed By: #### 2 458-8, 246-3, 2472-05 #### [facility] CLIA [id number] [address] [place], [place] [address] [place] Threonine [Moles/Vol] 79 umol/L Normal 60-225 [facility] Comment on above: Order Comment: Speci men Type: BLOOD SPECIMEN Ordering Facility: [facility] Address: [address] [place] [address] Performed By: #### 2 458-8, 3, 2472-05 #### [facility] CLIA [id number] [address] [place] [address] [place] Tyrosine [Moles/Vol] 56 umol/L Normal 34-112 [facility] Comment on above: Order Comment: Speci men Type: BLOOD SPECIMEN Ordering Facility: [facility] Address: [address] [place] [address] Performed By: #### 2 458-8, 2463, 2472-05 #### [facility] CLIA [id number] [address] [place], [place] [address] [place] Valine [Moles/Vol] 227 umol/L Normal 119-336 [facility] Comment on above: Order Comment: Speci men Type: BLOOD SPECIMEN Ordering Facility: [facility] Address: [address] [place] [address] Performed By: #### 2 458-8, 246-3, 2472-05 #### [facility] CLIA [id number] [address] [place] [address] [place] C-REACTIVE PROTEINon 025 CRP [Mass/Vol] 0.9 mg/dL High NINF - 0.9 mg/dL [facility] CARNITINE FREE AND TOTAL, PL ASMAon 12-02-2024 AC/FC RATIO 0.3 Normal 0.1-0.8 [facility] Comment on above: Order Comment: Speci men Type: BLOOD SPECIMEN Ordering Facility: [facility] Address: [address] [place] [address] Performed By: #### C ARNFT #### [facility] CLIA [id number] [address] [place] [address] ACYLCARNITINE (AC) 13 nmol/mL Normal 5-30 [facility] Comment on above: Order Comment: Speci men Type: BLOOD SPECIMEN Ordering Facility: [facility] Address: [address] [place] [address] Performed By: #### C ARNFT #### [facility] CLIA [id number] [address] [place] [address] CARNITINE FREE (FC) 43 nmol/mL Normal 25-54 [facility] Comment on above: Order Comment: Speci men Type: BLOOD SPECIMEN Ordering Facility: [facility] Address: [address] [place] [address] Performed By: #### C ARNFT #### [facility] CLIA [id number] [address] [place] [address] CARNITINE TOTAL 56 nmol/mL Normal 34-78 [facility] Comment on above: Order Comment: Speci men Type: BLOOD SPECIMEN Ordering Facility: [facility] Address: [address] [place] [address] Performed By: #### C ARNFT #### [facility] CLIA [id number] [address] [place] [address] INTERPRETATION SEE NOTE Normal [facility] Comment on above: Order Comment: Speci men Type: BLOOD SPECIMEN Ordering Facility: [facility] Address: [address] [place] [address] Result Comment: RESU LT: In this sample, the carnitine profile was normal. ADDITIONAL INFORMATION This test was developed and its performance characteristics determined by [facility] in a manner consistent with CLIA requirements. This test has not been cleared or approved by the U.S. Food and Drug Administration. Test Performed by: [facility] [address] [place] [address] Product Strategy Director: Roel Bellamy Ph.D.; CLIA# [id number] Performed By: ###Epi BAEZ #### [facility] CLIA [id number] [address] [place] [address] CK SerPl-cCncon 12-02-2024 CK [Catalytic activity/Vol] 59 U/L Normal 42-196 [facility] Comment on above: Order Comment: Anoopi haseeb Type: BLOOD SPECIMEN Ordering Facility: [facility] Address: [address] [place] [address] Performed By: ###Epi Cavazos YTDANIEL #### [facility] CLIA [id number] [address] [place] [address] CK [Catalytic activity/Vol]o n 12-02-2024 Interpretation and review of laboratory results Normal [facility] CNOVon 12-02-2024 CNOV Office Visit ([facility] ) GAEL RUBY ([id number]) 1995 F Date Time Provider Department 12/02/24 2:00 PM YAJAIRA LACKEY GASTSP During your visit today, [...] moderate appetite loss. Drinks one Ensure or [employer] Diabetes nutrition drink per day. Intermittent [...] Medications - Does the patient see a pain coordinator for chronic pain?No - Is the patient taking narcotic pain medication for chronic abdominal pain? No - Narcotic Medications: (Tramadol, Fentanyl, c (more content not included)... Normal [facility] Office Visit (GASTSP ) GAEL RUBY ([id number]) 1995 F Date Time Provider Department 12/02/24 12:45 PM ELECTROGASTROGRAM [facility] During your visit today, we recorded the following information about you: Krupa Orosco LPN 12/02/2024 1:26 PM Signed ELECTROGASTROGRAPY W/ TEST Operation / Procedure performed 350 cc water intake Krupa Orosco LPN Referring Provider: YAJAIRA LACKEY [[id number]] Allergies As of Date: 12/02/2024 Noted Allergy [...] Encounter Status:Closed by KRUPA OROSCO on 12/02/24 [facility] 12-02-2024 [facility] Telephone (GASTSP) GAEL RUBY ([id number]) 1995 F Date Time Provider Department 12/02/24 YAJAIRA LACKEY [facility] During your visit today, we recorded the following information about you: Karla Mcnally RN 12/02/2024 3:46 PM Signed PA for Gimoti initiated electronically through [employer]. Awaiting response [place] Medicaid ID# [id number] Rx BIN [id number] Rx PCN OHRXPROD Donna Saini RN 01/22/2025 [...] (GIMOTI) 15 mg/spray nasal spray Use 1 [place] in the nose four times daily. Medication notes this encounter GIMOTI 15 MG/SPRAY NASAL SPRAY WITH PUMP >> Karla Mcnally RN 12/02/2024 3:46 PM >> KARLA MCNALLY Dec 02, 2024 3:46 PM PA for Gimoti initiated electronically through [employer]. Awaiting response [place] Medicaid ID# [id number] Rx BIN [id number] Rx PCN OHRXPROD Problem List As Of Date: 12/02/2024 (None) Encounter Status:Closed by KARLA MCNALLY on 12/02/24 Normal [facility] CREATINE KINASE/CKon 025 CK [Catalytic activity/Vol] 59 U/L 42 - 196 U/L [facility] CRP SerPl-mCncon 12-02-2024 CRP [Mass/Vol] 0.9 mg/dL High <0.9 [facility] Comment on above: Order Comment: Speci men Type: BLOOD SPECIMEN Ordering Facility: [facility] Address: [address] [place] [address] Performed By: #### C YTOKP #### [facility] CLIA [id number] [address] [place] [address] CRP [Mass/Vol]on 12-02-2024 Interpretation and review of laboratory results Abnormal [facility] CYTOKINE PANEL 13, SERUMon 0 12-02-2024 INTERFERON GAMMA <4.2 Normal <=4.2 [facility] Comment on above: Order Comment: Speci men Type: BLOOD SPECIMEN Ordering Facility: [facility] Address: [address] [place] [address] Performed By: #### C YTOKP #### [facility] CLIA [id number] [address] [place] [address] INTERLEUKIN 1 BETA <6.5 Normal <=6.7 [facility] Comment on above: Order Comment: Speci men Type: BLOOD SPECIMEN Ordering Facility: [facility] Address: [address] [place] [address] Performed By: #### C YTOKP #### [facility] CLIA [id number] [address] [place] [address] INTERLEUKIN 10 <2.8 Normal <=2.8 [facility] Comment on above: Order Comment: Speci men Type: BLOOD SPECIMEN Ordering Facility: [facility] Address: [address] [place] [address] Performed By: #### C YTOKP #### [facility] CLIA [id number] [address] [place] [address] INTERLEUKIN 12 <1.9 Normal <=1.9 [facility] Comment on above: Order Comment: Speci men Type: BLOOD SPECIMEN Ordering Facility: [facility] Address: [address] [place] [address] Performed By: #### C YTOKP #### [facility] CLIA [id number] [address] [place] [address] INTERLEUKIN 13 <1.7 Normal <=2.3 [facility] Comment on above: Order Comment: Speci men Type: BLOOD SPECIMEN Ordering Facility: [facility] Address: [address] [place] [address] Performed By: #### C YTOKP #### [facility] CLIA [id number] [address] [place] [address] INTERLEUKIN 17 <1.4 Normal <=1.4 [facility] Comment on above: Order Comment: Speci men Type: BLOOD SPECIMEN Ordering Facility: [facility] Address: [address] [place] [address] Performed By: #### C YTOKP #### [facility] CLIA [id number] [address] [place] [address] INTERLEUKIN 2 <2.1 Normal <=2.1 [facility] Comment on above: Order Comment: Speci men Type: BLOOD SPECIMEN Ordering Facility: [facility] Address: [address] [place] [address] Performed By: #### C YTOKP #### [facility] CLIA [id number] [address] [place] [address] INTERLEUKIN 4 (INT4) <2.2 Normal <=2.2 [facility] Comment on above: Order Comment: Speci men Type: BLOOD SPECIMEN Ordering Facility: [facility] Address: [address] [place] [address] Performed By: #### C YTOKP #### [facility] CLIA [id number] [address] [place] [address] INTERLEUKIN 5 <2.1 Normal <=2.1 [facility] Comment on above: Order Comment: Speci men Type: BLOOD SPECIMEN Ordering Facility: [facility] Address: [address] [place], [place] [address] Performed By: #### C YTOKP #### [facility] CLIA [id number] [address] [place] [address] INTERLEUKIN 6 <2.0 Normal <=2.0 [facility] Comment on above: Order Comment: Speci men Type: BLOOD SPECIMEN Ordering Facility: [facility] Address: [address] [place] [address] Performed By: #### C YTOKP #### [facility] CLIA [id number] [address] [place] [address] INTERLEUKIN 8 <3.0 Normal <=3.0 [facility] Comment on above: Order Comment: Speci men Type: BLOOD SPECIMEN Ordering Facility: [facility] Address: [address] [place] [address] Performed By: #### C YTOKP #### [id number] [address] [place] [address] INTERLEUKIN-2 RECEPTOR 793.9 pg/mL Normal 175.3-858.2 [facility] Comment on above: Order Comment: Speci men Type: BLOOD SPECIMEN Ordering Facility: [facility] Address: [address] [place] [address] Performed By: #### C YTOKP #### [id number] [address] [place] [address] TUMOR NECROSIS FACTOR - ALPHA <1.7 Normal <=7.2 [facility] Comment on above: Order Comment: Speci men Type: BLOOD SPECIMEN Ordering Facility: [facility] Address: [address] [place] [address] Result Comment: INTE RPRETIVE INFORMATION: Cytokines Results are used to understand the pathophysiology of immune, infectious, or inflammatory disorders, or may be used for research purposes. This test was developed and its performance characteristics determined by [employer]. It has not been cleared or approved by the [place] Food and Drug Administration. This test was performed in a CLIA certified laboratory and is intended for clinical purposes. Performed By: [employer] [facility] [address] [place] [address] [employer] Set Up Technician: Roger Atkins MD, PhD CLIA Number: [id number] Performed By: #### C YTOKP #### [facility] CLIA [id number] [address] [place] [address] ESR Westergren method (Bld) [Velocity]on 12-02-2024 ESR (Bld) [Velocity] 15 mm/h Normal 0-20 [facility] Comment on above: Order Comment: Speci men Type: BLOOD SPECIMEN Ordering Facility: [facility] Address: [address] [place] [address] Performed By: #### 2 458-8, 2465-3, 2472-9 #### [facility] CLIA [id number] [address] [place] [address] [place] [address] [place] ESTROGEN FRACTION BLon 12-02 ESTRADIOL 8.2 pg/mL Normal [facility] Comment on above: Order Comment: Speci men Type: BLOOD SPECIMEN Ordering Facility: [facility] Address: [address] [place] [address] Result Comment: REFE RENCE INTERVAL: Estradiol by Straightedge Worker For a complete set of all established reference intervals, refer to [employer]/Tests/Pub/[id number]. This test was developed and its performance characteristics determined by [employer]. It has not been cleared or approved by the [place] Food and Drug Administration. This test was performed in a CLIA certified laboratory and is intended for clinical purposes. Performed By: #### C YTOKP #### [facility] CLIA [id number] [address] [place] [address] ESTROGENS TOTAL 32.4 pg/mL Normal [facility] Comment on above: Order Comment: Speci men Type: BLOOD SPECIMEN Ordering Facility: [facility] Address: [address] [place] [address] Result Comment: Refe rence interval of estrogens (pg/mL) Estrone Estradiol Total Estrogens Early follicular <150.0 30.0-100.0 30.0-250.0 Late follicular 100.0-250.0 100.0-400.0 200.0-650.0 Luteal <200.0 50.0-150.0 50.0-350.0 Post-menopausal 3.0-32.0 2.0-21.0 5.0-52.0 REFERENCE INTERVAL: Estrogens Total Calculation For a complete set of all established reference intervals, refer to [employer]/Tests/Pub/[id number]. Performed By: [facility] [address] [place] [address] [employer] Set Up Technician: Roger Atkins MD, PhD CLIA Number: [id number] Performed By: #### C YTOKP #### [facility] CLIA [id number] [address] [place] [address] ESTRONE 24.2 pg/mL Normal [facility] Comment on above: Order Comment: Speci men Type: BLOOD SPECIMEN Ordering Facility: [facility] Address: [address] [place] [address] Result Comment: INTE RPRETIVE INFORMATION: Estrone by Straightedge Worker For a complete set of all established reference intervals, refer to [employer]/Tests/Pub/[id number]. This test was developed and its performance characteristics determined by [employer]. It has not been cleared or approved by the [place] Food and Drug Administration. This test was performed in a CLIA certified laboratory and is intended for clinical purposes. Performed By: #### C YTOKP #### [facility] CLIA [id number] [address] [place] [id number] Ab Ser-aCncon 12-03-19 25 Glutamate decarboxylase 65 Ab Qn (S) <5.0 Normal <=5.0 [facility] Comment on above: Order Comment: [facility] Type: BLOOD SPECIMEN Ordering Facility: [facility] Address: [address] [place] [address] Result Comment: Anti -glutamic acid decarboxylase antibody [...] required. Performed By: #### C YTOKP #### [facility] CLIA [id number] [address] [place] [id number] Glutamate decarboxylase 65 A b Qn (S)on 12-02-2024 GLUTAMIC ACID DECARBOXYLAS AB QUALITATIVE Negative Normal Negative [facility] Comment on above: Order Comment: Cynthia membreno Type: BLOOD SPECIMEN Ordering Facility: [facility] Address: [address] [place] [address] Performed By: #### C YTOKP #### [email or web address] CLIA [id number] [address] [place] [address] HbA1c (Bld)on 12-02-2024 Average glucose Estimated from glycated hemoglobin (Bld) [Mass/Vol] 180 mg/dL Normal [facility] Comment on above: Order Comment: Cynthia membreno Type: BLOOD SPECIMEN Ordering Facility: [facility] Address: [address] [place] [address] Result Comment: eAG: (Estimated average glucose) is a calculated value from HgbA1c and is sales promotion representative of the average blood glucose level in the last 2-3 month period. Performed By: #### 5 5454-3 #### [facility] CLIA [id number] [address] [place] [address] [place] HbA1c (Bld) [Mass fraction] 7.9 % High 4.3-5.6 [facility] Comment on above: Order Comment: Cynthia membreno Type: BLOOD SPECIMEN Ordering Facility: [facility] Address: [address] [place] [address] Result Comment: Amer [place] Diabetes Association guidelines indicate that patients with HgbA1c in the range 5.7-6.4% are at increased risk for development of diabetes, and intervention by lifestyle modification may be beneficial. HgbA1c greater or equal to 6.5% is considered diagnostic of diabetes. Performed By: #### 5 5454-3 #### [facility] CLIA [id number] [address] [place] [address] [place] IgA SerPl-mCncon 12-02-2024 IgA [Mass/Vol] 149 mg/dL Normal 70-400 [facility] Comment on above: Order Comment: Cynthia membreno Type: BLOOD SPECIMEN Ordering Facility: [facility] Address: [address] [place] [address] Performed By: #### 2 458-8, 2465-3, 2472-9 #### [facility] CLIA [id number] [address] [place] [address] [place] IgG SerPl-mCncon 12-02-2024 IgG [Mass/Vol] 1096 mg/dL Normal 700-1600 [facility] Comment on above: Order Comment: Speci men Type: BLOOD SPECIMEN Ordering Facility: [facility] Address: [address] [place] [address] Performed By: #### 2 458-8, 2465-3, 2472-9 #### [facility] CLIA [id number] [address] [place] [address] [place] IgM SerPl-mCncon 12-02-2024 IgM [Mass/Vol] 76 mg/dL Normal 40-230 [facility] Comment on above: Order Comment: Speci men Type: BLOOD SPECIMEN Ordering Facility: [facility] Address: [address] [place] [address] Performed By: #### 2 458-8, 2465-3, 2472-9 #### [facility] CLIA [id number] [address] [place] [address] [place] LDH SerPl-cCncon 12-02-2024 LDH [Catalytic activity/Vol] 168 U/L Normal 135-214 [facility] Comment on above: Order Comment: Speci men Type: BLOOD SPECIMEN Ordering Facility: [facility] Address: [address] [place] [address] Performed By: #### 2 532-0, 3024-7 #### [facility] IA [id number] [address] [place] [address] [place] No Panel Informationon 12-02 [facility] ORGANIC ACIDS UR, QUANT W/CO NSULTon 12-02-2024 2-Hydroxyglutarate/Cre atinine (U) [Molar ratio] 6.8 umol/mmolCr Normal 0.6-17.7 [facility] Comment on above: Order Comment: Speci men Type: URINE SPECIMEN Ordering Facility: [facility] Address: [address] [place], [place] [address] Performed By: #### L [id number] #### [facility] CLIA [id number] [address] [place] [address] [place] 2-Hydroxyisovalerate/C reatinine (U) [Molar ratio] <0.1 Normal 0.0-0.1 [facility] Comment on above: Order Comment: Speci men Type: URINE SPECIMEN Ordering Facility: [facility] Address: [address] [place], [place] [address] Performed By: #### L [id number] #### [facility] CLIA [id number] [address] [place] [address] [place] 4-Pqovqy-0-hydroxybuty rate (C5-OH)/Creatinine (U) [Molar ratio] <0.6 Normal 0.0-1.3 [facility] Comment on above: Order Comment: Speci men Type: URINE SPECIMEN Ordering Facility: [facility] Address: [address] [place], [place] [address] Performed By: #### L [id number] #### [facility] CLIA [id number] [address] [place] [address] [place] 2-Methylbutyrylglycine /Creatinine (U) [Molar ratio] <0.1 Normal 0.0-0.4 [facility] Comment on above: Order Comment: Speci men Type: URINE SPECIMEN Ordering Facility: [facility] Address: [address] [place], [place] [address] Performed By: #### L [id number] #### [facility] CLIA [id number] [address] [place] [address] [place] 2-Methylcitrate/Creati nine (U) [Molar ratio] <1.1 Normal 1.0-13.9 [facility] Comment on above: Order Comment: Speci men Type: URINE SPECIMEN Ordering Facility: [facility] Address: [address] [place] [address] Performed By: #### L [id number] #### [facility] CLIA [id number] [address] [place] [address] [place] 2-Oxoadipate/Creatinin e (U) [Molar ratio] <1.6 Normal 0.0-3.3 [facility] Comment on above: Order Comment: Speci men Type: URINE SPECIMEN Ordering Facility: [facility] Address: [address] [place] [address] Performed By: #### L [id number] #### [facility] IA [id number] [address] [place] [address] [place] 3-Hydroxyglutarate/Cre atinine (U) [Molar ratio] 0.0 umol/mmolCr Normal 0.0-0.7 [facility] Comment on above: Order Comment: Speci men Type: URINE SPECIMEN Ordering Facility: [facility] Address: [address] [place] [address] Performed By: #### L [id number] #### [facility] IA [id number] [address] [place] [address] [place] 3-Hydroxyisovalerate/C reatinine (U) [Molar ratio] 9.4 umol/mmolCr Normal 2.1-27.3 [facility] Comment on above: Order Comment: Speci men Type: URINE SPECIMEN Ordering Facility: [facility] Address: [address] [place] [address] Performed By: #### L [id number] #### [facility] CLIA [id number] [address] [place] [address] [place] 3-Methylcrotonylglycin e/Creatinine (U) [Molar ratio] <0.3 Normal <0.3 [facility] Comment on above: Order Comment: Speci men Type: URINE SPECIMEN Ordering Facility: [facility] Address: [address] [place] [address] Performed By: #### L [id number] #### [facility] CLIA [id number] [address] [place] [address] [place] 3-Methylglutaconate/Cr eatinine (U) [Molar ratio] 1.9 umol/mmolCr Normal 0.0-2.0 [facility] Comment on above: Order Comment: Speci men Type: URINE SPECIMEN Ordering Facility: [facility] Address: [address] [place] [address] Performed By: #### L [id number] #### [facility] CLIA [id number] [address] [place] [address] [place] 3-Methylglutarate/Crea tinine (U) [Molar ratio] 0.7 umol/mmolCr High 0.0-0.6 [facility] Comment on above: Order Comment: Speci men Type: URINE SPECIMEN Ordering Facility: [facility] Address: [address] [place] [address] Performed By: #### L [id number] #### [facility] CLIA [id number] [address] [place] [address] [place] 4-Hydroxyphenylacetate /Creatinine (U) [Molar ratio] 21.7 umol/mmolCr Normal 5.7-147.5 [facility] Comment on above: Order Comment: Speci men Type: URINE SPECIMEN Ordering Facility: [facility] Address: [address] [place] [address] Performed By: #### L [id number] #### [facility] CLIA [id number] [address] [place] [address] [place] 4-Hydroxyphenyllactate /Creatinine (U) [Molar ratio] 8.3 umol/mmolCr Normal 1.3-23.0 [facility] Comment on above: Order Comment: Speci men Type: URINE SPECIMEN Ordering Facility: [facility] Address: [address] [place] [address] Performed By: #### L [id number] #### [facility] CLIA [id number] [address] [place] [address] [place] 4-Hydroxyphenylpyruvat e/Creatinine (U) [Molar ratio] 0.0 umol/mmolCr Normal <=0.0 [facility] Comment on above: Order Comment: Speci men Type: URINE SPECIMEN Ordering Facility: [facility] Address: [address] [place] [address] Performed By: #### L [id number] #### [facility] CLIA [id number] [address] [place] [address] [place] 5-Oxoproline/Creatinin e (U) [Molar ratio] 1.2 umol/mmolCr Normal 0.4-3.1 [facility] Comment on above: Order Comment: Speci men Type: URINE SPECIMEN Ordering Facility: [facility] Address: [address] [place] [address] Performed By: #### L [id number] #### [facility] CLIA [id number] [address] [place] [address] [place] Acetoacetate/Creatinin e (U) [Molar ratio] <0.9 High 0.0-0.5 [facility] Comment on above: Order Comment: Speci men Type: URINE SPECIMEN Ordering Facility: [facility] Address: [address] [place] [address] Performed By: #### L [id number] #### [facility] CLIA [id number] [address] [place] [address] [place] Aconitate/Creatinine (U) [Molar ratio] 19.8 umol/mmolCr Normal 8.5-109.6 [facility] Comment on above: Order Comment: Speci men Type: URINE SPECIMEN Ordering Facility: [facility] Address: [address] [place] [address] Performed By: #### L [id number] #### [facility] CLIA [id number] [address] [place] [address] [place] Adipate/Creatinine (U) [Molar ratio] <0.1 Low 0.3-9.2 [facility] Comment on above: Order Comment: Speci men Type: URINE SPECIMEN Ordering Facility: [facility] Address: [address] [place] [address] Performed By: #### L [id number] #### [facility] CLIA [id number] [address] [place] [address] [place] Alpha hydroxybutyrate/Creati nine (U) [Molar ratio] 5.0 umol/mmolCr High 0.0-2.7 [facility] Comment on above: Order Comment: Speci men Type: URINE SPECIMEN Ordering Facility: [facility] Address: [address] [place] [address] Performed By: #### L [id number] #### [facility] CLIA [id number] [address] [place] [address] [place] Alpha ketoglutarate/Creatini ne (U) [Molar ratio] 11.7 umol/mmolCr Normal 0.2-42.7 [facility] Comment on above: Order Comment: Speci men Type: URINE SPECIMEN Ordering Facility: [facility] Address: [address] [place] [address] Performed By: #### L [id number] #### [facility] CLIA [id number] [address] [place] [address] [place] Benzoate/Creatinine (U) [Molar ratio] <12.2 Normal 0.0-14.6 [facility] Comment on above: Order Comment: Speci men Type: URINE SPECIMEN Ordering Facility: [facility] Address: [address] [place] [address] Performed By: #### L [id number] #### [facility] CLIA [id number] [address] [place] [address] [place] Beta hydroxybutyrate/Creati nine (U) [Molar ratio] 6.8 umol/mmolCr High 0.1-2.6 [facility] Comment on above: Order Comment: Speci men Type: URINE SPECIMEN Ordering Facility: [facility] Address: [address] [place] [address] Performed By: #### L [id number] #### [facility] CLIA [id number] [address] [place] [address] [place] Butyrylglycine/Creatin ine (U) [Molar ratio] 0.0 umol/mmolCr Normal 0.0-0.7 [facility] Comment on above: Order Comment: Speci men Type: URINE SPECIMEN Ordering Facility: [facility] Address: [address] [place] [address] Performed By: #### L [id number] #### [facility] CLIA [id number] [address] [place] [address] [place] Creatinine (U) [Mass/Vol] 118.8 mg/dL Normal 42.2-237.9 [facility] Comment on above: Order Comment: Speci men Type: URINE SPECIMEN Ordering Facility: [facility] Address: [address] [place] [address] Performed By: #### L [id number] #### [facility] CLIA [id number] [address] [place] [address] [place] Ethylmalonate/Creatini ne (U) [Molar ratio] 2.8 umol/mmolCr Normal 0.5-6.2 [facility] Comment on above: Order Comment: Speci men Type: URINE SPECIMEN Ordering Facility: [facility] Address: [address] [place] [address] Performed By: #### L [id number] #### [facility] CLIA [id number] [address] [place] [address] [place] Fumarate/Creatinine (U) [Molar ratio] 5.6 umol/mmolCr High 0.3-2.6 [facility] Comment on above: Order Comment: Speci men Type: URINE SPECIMEN Ordering Facility: [facility] Address: [address] [place] [address] Performed By: #### L [id number] #### [facility] CLIA [id number] [address] [place] [address] [place] Glutarate/Creatinine (U) [Molar ratio] 0.3 umol/mmolCr Normal 0.0-1.4 [facility] Comment on above: Order Comment: Speci men Type: URINE SPECIMEN Ordering Facility: [facility] Address: [address] [place] [address] Performed By: #### L [id number] #### [facility] CLIA [id number] [address] [place] [address] [place] Hexanoylglycine/Creati nine (U) [Molar ratio] <0.1 Normal 0.0-0.1 [facility] Comment on above: Order Comment: Speci men Type: URINE SPECIMEN Ordering Facility: [facility] Address: [address] [place] [address] Performed By: #### L [id number] #### [facility] CLIA [id number] [address] [place] [address] [place] Isobutyrylglycine/Crea tinine (U) [Molar ratio] <0.1 Normal 0.0-1.2 [facility] Comment on above: Order Comment: Speci men Type: URINE SPECIMEN Ordering Facility: [facility] Address: [address] [place] [address] Performed By: #### L [id number] #### [facility] CLIA [id number] [address] [place] [address] [place] Isocitrate/Creatinine (U) [Molar ratio] 95.4 umol/mmolCr Normal 9.1-271.9 [facility] Comment on above: Order Comment: Speci men Type: URINE SPECIMEN Ordering Facility: [facility] Address: [address] [place] [address] Performed By: #### L [id number] #### [facility] CLIA [id number] [address] [place] [address] [place] Lactate/Creatinine (U) [Molar ratio] 75.1 umol/mmolCr High 2.9-47.2 [facility] Comment on above: Order Comment: Speci men Type: URINE SPECIMEN Ordering Facility: [facility] Address: [address] [place] [address] Performed By: #### L [id number] #### [facility] CLIA [id number] [address] [place] [address] [place] Malate/Creatinine (U) [Molar ratio] 2.0 umol/mmolCr High 0.0-1.1 [facility] Comment on above: Order Comment: Speci men Type: URINE SPECIMEN Ordering Facility: [facility] Address: [address] [place] [address] Performed By: #### L [id number] #### [facility] CLIA [id number] [address] [place] [address] [place] Malonate/Creatinine (U) [Molar ratio] 0.0 umol/mmolCr Normal 0.0-0.1 [facility] Comment on above: Order Comment: Speci men Type: URINE SPECIMEN Ordering Facility: [facility] Address: [address] [place] [address] Performed By: #### L [id number] #### [facility] CLIA [id number] [address] [place] [address] [place] Methylmalonate/Creatin ine (U) [Molar ratio] <0.4 Normal 0.0-0.6 [facility] Comment on above: Order Comment: Speci men Type: URINE SPECIMEN Ordering Facility: [facility] Address: [address] [place] [address] Performed By: #### L [id number] #### [facility] CLIA [id number] [address] [place] [address] [place] Methylsuccinate/Creati nine (U) [Molar ratio] 0.8 umol/mmolCr Normal 0.0-1.4 [facility] Comment on above: Order Comment: Speci men Type: URINE SPECIMEN Ordering Facility: [facility] Address: [address] [place] [address] Performed By: #### L [id number] #### [facility] CLIA [id number] [address] [place] [address] [place] N-acetylaspartate/Crea tinine (U) [Molar ratio] 1.5 umol/mmolCr Normal 0.1-8.9 [facility] Comment on above: Order Comment: Speci men Type: URINE SPECIMEN Ordering Facility: [facility] Address: [address] [place] [address] Performed By: #### L [id number] #### [facility] CLIA [id number] [address] [place] [address] [place] N-acetyltyrosine/Creat inine (U) [Molar ratio] <0.2 Normal 0.0-1.2 [facility] Comment on above: Order Comment: Speci men Type: URINE SPECIMEN Ordering Facility: [facility] Address: [address] [place] [address] Performed By: #### L [id number] #### [facility] CLIA [id number] [address] [place] [address] [place] Oxalate/Creatinine (U) [Molar ratio] 3.1 umol/mmolCr Normal 0.7-12.4 [facility] Comment on above: Order Comment: Speci men Type: URINE SPECIMEN Ordering Facility: [facility] Address: [address] [place] [address] Performed By: #### L [id number] #### [facility] CLIA [id number] [address] [place] [address] [place] Pyruvate/Creatinine (U) [Molar ratio] 1.9 umol/mmolCr Normal 0.1-2.6 [facility] Comment on above: Order Comment: Speci men Type: URINE SPECIMEN Ordering Facility: [facility] Address: [address] [place] [address] Performed By: #### L [id number] #### [facility] CLIA [id number] [address] [place] [address] [place] Sebacate (C8)/Creatinine (U) [Molar ratio] <3.4 High 0.0-0.3 [facility] Comment on above: Order Comment: Speci men Type: URINE SPECIMEN Ordering Facility: [facility] Address: [address] [place] [address] Performed By: #### L [id number] #### [facility] CLIA [id number] [address] [place] [address] [place] Suberate/Creatinine (U) [Molar ratio] 2.3 umol/mmolCr Normal 0.0-7.4 [facility] Comment on above: Order Comment: Speci men Type: URINE SPECIMEN Ordering Facility: [facility] Address: [address] [place] [address] Performed By: #### L [id number] #### [facility] CLIA [id number] [address] [place] [address] [place] Suberylglycine/Creatin ine (U) [Molar ratio] 0.0 umol/mmolCr Normal <=0.0 [facility] Comment on above: Order Comment: Speci men Type: URINE SPECIMEN Ordering Facility: [facility] Address: [address] [place] [address] Performed By: #### L [id number] #### [facility] CLIA [id number] [address] [place] [address] [place] Succinate/Creatinine (U) [Molar ratio] 2.5 umol/mmolCr Normal 0.3-27.4 [facility] Comment on above: Order Comment: Speci men Type: URINE SPECIMEN Ordering Facility: [facility] Address: [address] [place] [address] Performed By: #### L [id number] #### [facility] CLIA [id number] [address] [place] [address] [place] Succinylacetone/Creati nine (U) [Molar ratio] <0.4 Normal <0.4 [facility] Comment on above: Order Comment: Speci men Type: URINE SPECIMEN Ordering Facility: [facility] Address: [address] [place] [address] Performed By: #### L [id number] #### [facility] CLIA [id number] [address] [place] [address] [place] UOA CONSULTATION Normal [facility] Comment on above: Order Comment: Speci men Type: URINE SPECIMEN Ordering Facility: [facility] Address: [address] [place] [address] Result Comment: This urine organic acid analysis [...] and its performance characteristics determined by the [facility]. It has not been cleared or approved by the US Food and Drug Administration. The FDA had determined that such clearance or approval is not necessary. Performed By: #### L [id number] #### [facility] CLIA [id number] [address] [place] [address] [place] UOA REVIEW Reviewed by Corky Minaya MD, Ph.D ([id number]) Normal [facility] Comment on above: Order Comment: Speci men Type: URINE SPECIMEN Ordering Facility: [facility] Address: [address] [place] [address] Performed By: #### L [id number] #### [facility] IA [id number] [address] [place] [address] [place] Uracil/Creatinine (U) [Molar ratio] <0.4 Normal 0.0-5.1 [facility] Comment on above: Order Comment: Speci men Type: URINE SPECIMEN Ordering Facility: [facility] Address: [address] [place] [address] Performed By: #### L [id number] #### [facility] CLIA [id number] [address] [place] [address] [place] PYRUVATE+LACTATE BLon 2024 Lactate [Moles/Vol] 1.8 mmol/L Normal 0.5-2.2 [facility] Comment on above: Order Comment: Speci men Type: BLOOD SPECIMEN Ordering Facility: [facility] Address: [address] [place] [address] Result Comment: This test was developed, and its performance characteristics determined by the [facility] Department of Pathology and Laboratory Medicine. It has not been cleared or approved by the FDA. The [facility] Department of Pathology and Laboratory Medicine is regulated under CLIA as qualified to perform high-complexity testing. This test is used for clinical purposes. It should not be regarded as investigational or for research. Performed By: #### [facility] #### [id number] [address] [place] [address] Pyruvate (Bld) [Moles/Vol] Normal [facility] Comment on above: Order Comment: Speci men Type: BLOOD SPECIMEN Ordering Facility: [facility] Address: [address] [place] [address] Result Comment: Unab le to assay. Analytical difficulty Performed By: #### C YTOKP #### [email or web address] CLIA [id number] [address] [place] [address] T4 Free SerPl-mCncon 025 Free T4 [Mass/Vol] 1.2 ng/dL Normal 0.9-1.7 [facility] Comment on above: Order Comment: Speci haseeb Type: BLOOD SPECIMEN Ordering Facility: [facility] Address: [address] [place] [address] Performed By: #### C YTOKP #### [facility] [email or web address]] [employer] CLIA [id number] [address] [place] [address] THYROID STIMULATING HORMONEo n 12-02-2024 TSH Qn 0.31 m[IU]/L [facility] Comment on above: If the patient is [...] Gomez, et al. 2017 Guidelines of the [place] Thyroid Association for the Diagnosis and Management of Thyroid Disease during and the . Thyroid, 2017:27:3:315-389. TSH Qnon 12-02-2024 Interpretation and review of laboratory results Normal [facility] TSH SerPl-aCncon 12-02-2024 TSH Qn 0.310 m[IU]/L Normal 0.270-4.200 [facility] Comment on above: Order Comment: Speci haseeb Type: BLOOD SPECIMEN Ordering Facility: [facility] Address: [address] [place] [address] Result Comment: If t he patient is , TSH reference range varies by gestational period: First Trimester (weeks 9-12): 0.180-2.990 mIU/L Second Trimester: 0.110-3.980 mIU/L Third Trimester: 0.480-4.710 mIU/L Basil Scruggs et al. A Practical Approach for the Verifications and Determination of Site- and Trimester-Specific Reference Intervals for Thyroid Function tests in . Thyroid, 2019:29:3:412-420. Luis E, et al. 2017 Guidelines of the [place] Thyroid Association for the Diagnosis and Management of Thyroid Disease during and the . Thyroid, 2017:27:3:315-389. Performed By: #### C YTOKP #### [facility] [email or web address]] [employer] CLIA [id number] [address] [place] [address] VOLTAGE GATED CA IGGon 12-02 P/Q-TYPE CALCIUM CHANNEL ANTIBODY 3.1 pmol/L Normal 0.0-24.5 [facility] Comment on above: Order Comment: Speci men Type: BLOOD SPECIMEN Ordering Facility: [facility] Address: [address] [place] [address] Result Comment: INTE RPRETIVE INFORMATION: P/Q-Type Calcium Channel Antibody 0.0 to 24.5 pmol/L ............. Negative 24.6 to 45.6 pmol/L ............ Indeterminate 45.7 pmol/L or greater.......... Positive This test was developed and its performance characteristics determined by [employer]. It has not been cleared or approved by the [place] Food and Drug Administration. This test was performed in a CLIA certified laboratory and is intended for clinical purposes. Performed By: [facility] [address] [place] [address] [employer] Set Up Technician: Roger Atkins MD, PhD CLIA Number: [id number] Performed By: #### Macy YTOKP #### [facility] CLIA [id number] [address] [place] [address] VOLTAGE-GATED POTASSIUM REY ABon 12-02-2024 VOLTAGE-GATED POTASSIUM CHANNEL AB, SER 0 pmol/L Normal 0-31 [facility] Comment on above: Order Comment: Speci haseeb Type: BLOOD SPECIMEN Ordering Facility: [facility] Address: [address] [place] [address] Result Comment: INTE RPRETIVE INFORMATION: Voltage-Gated Potassium [...] developed and its performance characteristics determined by [employer]. It has not been cleared or approved by the US Food and Drug Administration. This test was performed in a CLIA certified laboratory and is intended for clinical purposes. Performed By: [employer] [address] [place] [address] [employer] Set Up Technician: Roger Atkins MD, PhD CLIA Number: [id number] Performed By: #### V GKCAB #### [facility] CLIA [id number] [address] [place], [place] [address] CBC auto differentialon 10-24 Basophils (Bld) [#/Vol] 0.05 10*3/uL [facility] Basophils/100 WBC (Bld) 1 % 0 - 2 % [facility] Eosinophils (Bld) [#/Vol] 0.12 10*3/uL [facility] Eosinophils/100 WBC (Bld) 1 % 1 - 4 % [facility] Erythrocyte distribution width (RBC) [Ratio] 14.1 % 11.8 - 14.4 % [facility] Hematocrit (Bld) [Volume fraction] 40.7 % 36.3 - 47.1 % [facility] Hemoglobin (Bld) [Mass/Vol] 13.4 g/dL 11.9 - 15.1 g/dL [facility] Immature granulocytes (Bld) [#/Vol] 0.03 10*3/uL [facility] Immature granulocytes/100 WBC (Bld) 0 % 0 [facility] Lymphocytes/100 WBC (Bld) 27 % 24 - 43 % [facility] Lymphocytes/100 WBC (Bld) 2.60 % [facility] MCH (RBC) [Entitic mass] 28.6 pg 25.2 - 33.5 pg [facility] MCHC (RBC) [Mass/Vol] 32.9 g/dL 28.4 - 34.8 g/dL [facility] MCV (RBC) [Entitic vol] 87.0 fL 82.6 - 102.9 fL [facility] Monocytes/100 WBC (Bld) 6 % 3 - 12 % [facility] Monocytes/100 WBC (Bld) 0.60 % [facility] Neutrophils/100 WBC (Bld) 65 % 36 - 65 % [facility] Nucleated RBC/100 WBC (Bld) [Ratio] 0.0 % 0.0 per 100 WBC [facility] Platelet mean volume (Bld) [Entitic vol] 9.7 fL 8.1 - 13.5 fL [facility] Platelets (Bld) [#/Vol] 219 10*3/uL [facility] RBC (Bld) [#/Vol] 4.68 10*6/uL 3.95 - 5.1 1 m/uL [facility] Segmented neutrophils/100 WBC (Bld) 6.40 % [facility] WBC other (Bld) [#/Vol] 9.8 [facility] CBC with Diffon 11-06-2024 Abs. Basophil 0.05 k/uL Normal 0.00-0.20 [facility] Comment on above: Performed By: #### [facility] #### [facility] [address] [place] [address] Product Strategy Director: Murtaza Arceo MD Abs.Imm.Granulocyte 0.03 k/uL Normal 0.00-0.30 [facility] Comment on above: Performed By: #### [facility]o [facility] #### [facility] [address] [place], [place] [id number] Product Strategy Director: Murtaza Arceo MD Abs.Neutrophil (Seg) 6.40 k/uL Normal 1.50-8.10 [facility] Comment on above: Performed By: #### U AX, UHCG, UMICAO #### [facility] [address] [place], [facility] Product Strategy Director: Murtaza Arceo MD Basophils/100 WBC (Bld) 1 % Normal 0-2 [facility] Comment on above: Performed By: #### U AX, CG, UMICAO #### [facility] [address] [place], [facility] Product Strategy Director: Murtaza Arceo MD Eosinophils (Bld) [#/Vol] 0.12 10*3/uL Normal 0.00-0.44 [facility] Comment on above: Performed By: #### U AX, UHCG, UMICAO #### [facility] [address] [place] [address] Dr. [place], [facility] Product Strategy Director: Murtaza Arceo MD Eosinophils/100 WBC (Bld) 1 % Normal 1-4 [facility] Comment on above: Performed By: #### U AX, CG, UMICAO #### [address] [place], [facility] Product Strategy Director: Murtaza Arceo MD Erythrocyte distribution width (RBC) [Ratio] 14.1 % Normal 11.8-14.4 [facility] Comment on above: Performed By: #### U AX, UHCG, UMICAO #### [facility] [address] [place] [address] Product Strategy Director: Murtaza Arceo MD Hematocrit (Bld) [Volume fraction] 40.7 % Normal 36.3-47.1 [facility] Comment on above: Performed By: #### U AX, UHCG, UMICAO #### [facility] [address] [place], [place] [id number] Product Strategy Director: Murtaza Arceo MD Hemoglobin (Bld) [Mass/Vol] 13.4 g/dL Normal 11.9-15.1 [facility] Comment on above: Performed By: #### U AX, CG, UMICAO #### [facility] [address] [place], [facility] Product Strategy Director: Murtaza Arceo MD Immature granulocytes/100 WBC (Bld) 0 % Normal 0 [facility] Comment on above: Performed By: #### U AX, [facility], UMICAO #### [address] [place], [facility] Product Strategy Director: Murtaza Arceo MD Lymphocytes (Bld) [#/Vol] 2.60 10*3/uL Normal 1.10-3.70 [facility] Comment on above: Performed By: #### U AX, [facility], UMICAO #### [address] [place], [facility] Product Strategy Director: Murtaza Arceo MD Lymphocytes/100 WBC (Bld) 27 % Normal 24-43 [facility] Comment on above: Performed By: #### U AX, CG, UMICAO #### [facility] [address] [place] [address] Dr. [place], [facility] Product Strategy Director: Murtaza Arceo MD MCH (RBC) [Entitic mass] 28.6 pg Normal 25.2-33.5 [facility] Comment on above: Performed By: #### U AX, CG, UMICAO #### [facility] [address] [place], [place] [id number] Product Strategy Director: Murtaza Arceo MD MCHC (RBC) [Mass/Vol] 32.9 g/dL Normal 28.4-34.8 [facility] Comment on above: Performed By: #### U AX, CG, UMICAO #### [facility] [address] [place], [facility]83 Product Strategy Director: Murtaza Arceo MD MCV (RBC) [Entitic vol] 87.0 fL Normal 82.6-102.9 [facility] Comment on above: Performed By: #### U AX, CG, UMICAO #### [facility] [address] [place], [facility] Product Strategy Director: Murtaza Arceo MD Monocytes (Bld) [#/Vol] 0.60 10*3/uL Normal 0.10-1.20 [facility] Comment on above: Performed By: #### [facility], UMICAO #### [address] [place], [place] [address] Product Strategy Director: Murtaza Arceo MD Monocytes/100 WBC (Bld) 6 % Normal 3-12 [facility] Comment on above: Performed By: #### [facility], UMICAO #### [address] [place], [place] [address] Product Strategy Director: Murtaza Arceo MD Neutrophil (Seg) 65 % Normal 36-65 [facility] Comment on above: Performed By: #### U AX CG, UMICAO #### [address] [place], [place] [address] Product Strategy Director: Murtaza Arceo MD NRBC Automated 0.0 per 100 WBC Normal 0.0 [facility] Comment on above: Performed By: #### U AX CG, UMICAO #### [address] [place], [facility]83 Product Strategy Director: Murtaza Arceo MD Platelet mean volume (Bld) [Entitic vol] 9.7 fL Normal 8.1-13.5 [facility] Comment on above: Performed By: #### U AX, CG, UMICAO #### [facility] [address] [place], [place] [id number] Product Strategy Director: Murtaza Arceo MD Platelets (Bld) [#/Vol] 219 10*3/uL Normal 138-453 [facility] Comment on above: Performed By: #### U AX, CG, UMICAO #### [facility] [address] [place], [place] [id number] Product Strategy Director: Murtaza Arceo MD RBC (Bld) [#/Vol] 4.68 10*6/uL Normal 3.95-5.11 [facility] Comment on above: Performed By: #### U AX, [facility], UMICAO #### [facility] [address] [place] [address] [place], [place] [phone] Product Strategy Director: Murtaza Arceo MD WBC (Bld) [#/Vol] 9.8 10*3/uL Normal 3.5-11.3 [facility] Comment on above: Performed By: #### U AX, [facility], UMICAO #### [address] [place], [place] [id number] Product Strategy Director: Murtaza Arceo MD CT ABDOMEN PELVIS [...] by: Aliyah Petersen MD Signed by: Aliyah Petersen MD 11/06/24 Final result [facility] Radiology, Radiologist, - 11/06/2024 EXAMINATION: CT OF THE ABDOMEN [...] by: Aliyah Petersen MD Signed by: Aliyah Petersen MD 11/06/[address] [facility] CT ABDOMEN PELVIS W IV CONTRAST EXAMINATION: CT OF THE ABDOMEN AND PELVIS [...] by: Aliyah Petersen MD Signed by: Aliyah Petersen MD 11/06/24 Final result Normal [facility] Radiology Study observation (narrative) [facility] CT ABDOMEN PELVIS W IV CONTR ASTOrdered By: Radiologist Radiology on 11-06-2024 [facility] Work Phone: CT Abdomen and Pelvis W cont rast Maurilio 11-06-2024 1. No acute intra-abdominal or pelvic abnormality. Specifically, no evidence of acute pancreatitis on CT. 2. Hepatic steatosis and hepatomegaly. 3. Cholecystectomy and hysterectomy. [facility] RIS CONSOLIDATED EXAMINATION: CT OF THE ABDOMEN [...] Tissues: No acute or aggressive osseous lesion. [facility] RIS CONSOLIDATED Aliyah Petersen MD - 11/06/2024 EXAMINATION: [...] steatosis and hepatomegaly. 3. Cholecystectomy and hysterectomy. [facility] CT Abdomen and Pelvis W cont rast IVOrdered By: Aliyah Petersen on 11-06-2024 [facility] Work Phone: Comp Metabolic Pr/rfx MGon 0 11-06-2024 Albumin [Mass/Vol] 3.7 g/dL Normal 3.5-5.2 [facility] Comment on above: Performed By: #### Gallo LOJA EVELYN PRO #### [facility] [address] [place] [address] [place] [address] Product Strategy Director: Murtaza Arceo MD Albumin/Glob Ratio 1.5 Normal 1.0-2.5 [facility] Comment on above: Performed By: #### Gallo LOJA [facility] SyedO #### [address] [place], [place] [id number] Product Strategy Director: Murtaza Arceo MD Alkaline Phos 89 U/L Normal 35-104 [facility] Comment on above: Performed By: #### Gallo LOJA MORTEZA UMLAKHWINDERO #### [facility] [address] [place], [place] [id number] Product Strategy Director: Murtaza Arceo MD ALT [Catalytic activity/Vol] 38 U/L High 10-35 [facility] Comment on above: Performed By: #### U FREEDOM [facility], UMICAO #### [facility] [address] [place] [address] [place] [address] Product Strategy Director: Murtaza Arceo MD Anion gap [Moles/Vol] 9 mmol/L Normal 9-16 [facility] Comment on above: Performed By: #### U AX, UHCG, UMICAO #### [facility] [address] [place], [place] [id number] Product Strategy Director: Murtaza Arceo MD AST [Catalytic activity/Vol] 44 U/L High 10-35 [facility] Comment on above: Performed By: #### U AX, UHCG, UMICAO #### [facility] [address] [place], [place] [id number] Product Strategy Director: Murtaza Arceo MD Bilirubin [Mass/Vol] 0.6 mg/dL Normal 0.00-1.20 [facility] Comment on above: Performed By: #### U AX, UHCG, UMICAO #### [facility] [address] [place], [place] [id number] Product Strategy Director: Murtaza Arceo MD BUN/CRE Ratio 11 Normal 9-20 [facility] Comment on above: Performed By: #### U DORIS LOJACG, UMICAO #### [facility] [address] [place], [place] [id number] Product Strategy Director: Murtaza Arceo MD Calcium [Mass/Vol] 8.8 mg/dL Normal 8.6-10.4 [facility] Comment on above: Performed By: #### U AX UHCG, UMICAO #### [facility] [address] [place], [place] [id number] Product Strategy Director: Murtaza Arceo MD Chloride [Moles/Vol] 106 mmol/L Normal 98-107 [facility] Comment on above: Performed By: #### U AX, UHCG, UMICAO #### [facility] [address] [place] [address] Product Strategy Director: Murtaza Arceo MD CO2 [Moles/Vol] 26 mmol/L Normal 20-31 [facility] Comment on above: Performed By: #### U FREEDOM [facility], UMICAO #### [facility] [address] [place] [address] Product Strategy Director: Murtaza Arceo MD Creatinine [Mass/Vol] 0.7 mg/dL Normal 0.50-0.90 [facility] Comment on above: Performed By: #### U FREEDOM [facility], UMICAO #### [facility] [address] [place] [address] Product Strategy Director: Murtaza Arceo MD GFR/1.73 sq M.predicted among non-blacks MDRD (S/P/Bld) [Vol rate/Area] mL/min/{1.73_m2} Normal >60 [facility] Comment on above: Result Comment: These [...] affects renal tubular secretion. Performed By: #### Gallo LOJA [facility], UMLAKHWINDERO #### [facility] [address] [place] [address] Product Strategy Director: Murtaza Arceo MD Glucose [Mass/Vol] 169 mg/dL High 74-99 [facility] Comment on above: Performed By: #### U FREEDOM [facility], UMICAO #### [facility] [address] [place] [address] Product Strategy Director: Murtaza Arceo MD Potassium [Moles/Vol] 4.4 mmol/L Normal 3.7-5.3 [facility] Comment on above: Performed By: #### U FREEDOM [facility], UMICAO #### [facility] [address] [place] [address] Product Strategy Director: Murtaza Arceo MD Protein [Mass/Vol] 6.2 g/dL Low 6.6-8.7 [facility] Comment on above: Performed By: #### Gallo LOJA [facility], CINDYO #### [facility] [address] [place] [address] Product Strategy Director: Murtaza Arceo MD Sodium [Moles/Vol] 141 mmol/L Normal 136-145 [facility] Comment on above: Performed By: #### Gallo LOJA [facility], CINDYO #### [facility] [address] [place] [address] Product Strategy Director: Murtaza Arceo MD Urea nitrogen [Mass/Vol] 8 mg/dL Normal 6-20 [facility] Comment on above: Performed By: #### Gallo LOJA [facility], EVELYN #### [facility] [address] [place] [address] Product Strategy Director: Murtaza Arceo MD Comprehensive Metabolic Pane l w/ Reflex to MGon 11-06-2024 Albumin [Mass/Vol] 3.7 g/dL 3.5 - 5.2 g/dL [facility] Albumin/Globulin [Mass ratio] 1.5 {ratio} 1.0 - 2.5 [facility] ALP [Catalytic activity/Vol] 89 U/L 35 - 104 U/L [facility] ALT [Catalytic activity/Vol] 38 U/L High 10 - 35 U/L [facility] Anion gap [Moles/Vol] 9 mmol/L 9 - 16 mmol/L [facility] AST [Catalytic activity/Vol] 44 U/L High 10 - 35 U/L [facility] Bilirubin [Mass/Vol] 0.6 mg/dL 0.00 - 1.20 mg/dL [facility] Calcium [Mass/Vol] 8.8 mg/dL 8.6 - 10. 4 mg/dL [facility] Chloride [Moles/Vol] 106 mmol/L 98 - 10 7 mmol/L [facility] CO2 [Moles/Vol] 26 mmol/L 20 - 31 mmol/L [facility] Creatinine [Mass/Vol] 0.7 mg/dL 0.50 - 0.90 mg/dL [facility] Amarilis Bailey [facility] Comment on above: These results are not [...] 169 mg/dL High 74 - 99 mg/dL [facility] Potassium [Moles/Vol] 4.4 mmol/L 3.7 - 5.3 mmol/L [facility] Protein [Mass/Vol] 6.2 g/dL Low 6.6 - 8.7 g/dL [facility] Sodium [Moles/Vol] 141 mmol/L 136 - 145 mmol/L [facility] Urea nitrogen [Mass/Vol] 8 mg/dL 6 - 20 mg/dL [facility] Urea nitrogen/Creatinine [Mass ratio] 11 mg/mg 9 - 20 [facility] Glucose, Whole Bloodon 11-06 Glucose [Mass/Vol] 209 mg/dL High 74 - 100 mg/dL [facility] Interpretation and review of laboratory results Abnormal [facility] Glucose [Mass/Vol] 209 mg/dL High 74-100 [facility] Glucose [Mass/Vol] 173 mg/dL High 74 - 100 mg/dL [facility] Interpretation and review of laboratory results Abnormal [facility] Glucose [Mass/Vol] 173 mg/dL High 74-100 [facility] Lipaseon 11-06-2024 Lipase [Catalytic activity/Vol] 190 U/L High 13 - 60 U/L [facility] Lipase [Catalytic activity/Vol] 190 U/L High 13-60 [facility] Comment on above: Performed By: #### U FREEDOM, [facility], EVELYN #### [facility] [address] [place] [address] Product Strategy Director: Murtaza Arceo MD PT CBC WITH DIFFon 025 Basophils/100 WBC (Bld) 1 % 0 - 2 % [facility] Eosinophils/100 WBC (Bld) 1 % 1 - 4 % [facility] Erythrocyte distribution width (RBC) [Ratio] 14.1 % 11.8 - 14.4 % [facility] Hematocrit (Bld) [Volume fraction] 40.7 % 36.3 - 47.1 % [facility] Hemoglobin (Bld) [Mass/Vol] 13.4 g/dL 11.9 - 15.1 g/dL [facility] Immature granulocytes/100 WBC (Bld) 0 % 0 [facility] Lymphocytes/100 WBC (Bld) 27 % 24 - 43 % [facility] MCH (RBC) [Entitic mass] 28.6 pg 25.2 - 33.[address] [facility] MCHC (RBC) [Mass/Vol] 32.9 g/dL 28.4 - 34.8 g/dL [facility] MCV (RBC) [Entitic vol] 87 fL 82.6 - 102.[address] [facility]. [facility]HIL 0.12 [facility] LYMPH 2.6 [facility] MONOCYTE 0.6 [facility] ABS.IMM.GRANULOCYTE 0.03 [facility] ABS.NEUTROPHIL (SEG) 6.4 [facility] NRBC AUTOMATED 0 0.[address] [facility]8 [facility] Monocytes/100 WBC (Bld) 6 % 3 - 12 % [facility] Platelet mean volume (Bld) [Entitic vol] 9.7 fL 8.1 - 13.[address] [facility] RBC (Bld) [#/Vol] 4.68 10*6/uL 3.95 - 5.1 1 m/uL [facility] Segmented neutrophils/100 WBC (Bld) 65 % 36 - 65 % [facility] Original Ordering Provider: COLTEN SINGH [facility] No Panel Informationon 02-14 -2025 Interpretation and review of laboratory results Abnormal [facility] CBC auto differentialon 10-24 Basophils (Bld) [#/Vol] 0.04 10*3/uL [facility] Basophils/100 WBC (Bld) 0 % 0 - 2 % [facility] Eosinophils (Bld) [#/Vol] 0.14 10*3/uL [facility] Eosinophils/100 WBC (Bld) 1 % 1 - 4 % [facility] Erythrocyte distribution width (RBC) [Ratio] 14.1 % 11.8 - 14.4 % [facility] Hematocrit (Bld) [Volume fraction] 43.0 % 36.3 - 47.1 % [facility] Hemoglobin (Bld) [Mass/Vol] 14.1 g/dL 11.9 - 15.1 g/dL [facility] Immature granulocytes (Bld) [#/Vol] 0.04 10*3/uL [facility] Immature granulocytes/100 WBC (Bld) 0 % 0 [facility] Interpretation and review of laboratory results Abnormal [facility] Lymphocytes/100 WBC (Bld) 33 % 24 - 43 % [facility] Lymphocytes/100 WBC (Bld) 4.03 % High [facility] MCH (RBC) [Entitic mass] 28.9 pg 25.2 - 33.5 pg [facility] MCHC (RBC) [Mass/Vol] 32.8 g/dL 28.4 - 34.8 g/dL [facility] MCV (RBC) [Entitic vol] 88.1 fL 82.6 - 102.9 fL [facility] Monocytes/100 WBC (Bld) 6 % 3 - 12 % [facility] Monocytes/100 WBC (Bld) 0.77 % [facility] Neutrophils/100 WBC (Bld) 60 % 36 - 65 % [facility] Nucleated RBC/100 WBC (Bld) [Ratio] 0.0 % 0.0 per 100 WBC [facility] Platelet mean volume (Bld) [Entitic vol] 9.8 fL 8.1 - 13.5 fL [facility] Platelets (Bld) [#/Vol] 249 10*3/uL [facility] RBC (Bld) [#/Vol] 4.88 10*6/uL 3.95 - 5.1 1 m/uL [facility] Segmented neutrophils/100 WBC (Bld) 7.13 % [facility] WBC other (Bld) [#/Vol] 12.2 High [facility] CBC with Diffon 11-05-2024 Abs. Basophil 0.04 k/uL Normal 0.00-0.20 [facility] Comment on above: Performed By: #### C DP, CP #### [facility] [address] [place] [address] [place] [address] Product Strategy Director: Murtaza Arceo MD Abs.Imm.Granulocyte 0.04 k/uL Normal 0.00-0.30 [facility] Comment on above: Performed By: #### C DP, CP #### [facility] [address] [place] [address] [place] [address] Product Strategy Director: Murtaza Arceo MD Abs.Neutrophil (Seg) 7.13 k/uL Normal 1.50-8.10 [facility] Comment on above: Performed By: #### C DP, CP #### [address] [place], [place] [address] Product Strategy Director: Murtaza Arceo MD Basophils/100 WBC (Bld) 0 % Normal 0-2 [facility] Comment on above: Performed By: #### C DP, CP #### [facility] [address] [place] [address] Dr. [place], [facility]83 Product Strategy Director: Murtaza Arceo MD Eosinophils (Bld) [#/Vol] 0.14 10*3/uL Normal 0.00-0.44 [facility] Comment on above: Performed By: #### C DP, CP #### [facility] [address] [place] [address] Dr. [place] [id number] Product Strategy Director: Murtaza Arceo MD Eosinophils/100 WBC (Bld) 1 % Normal 1-4 [facility] Comment on above: Performed By: #### C DP, CP #### [address] [place], [place] [id number] Product Strategy Director: Murtaza Arceo MD Erythrocyte distribution width (RBC) [Ratio] 14.1 % Normal 11.8-14.4 [facility] Comment on above: Performed By: #### C DP, CP #### [address] [place], [place] [phone] Product Strategy Director: Murtaza Arceo MD Hematocrit (Bld) [Volume fraction] 43.0 % Normal 36.3-47.1 [facility] Comment on above: Performed By: #### C DP, CP #### [address] [place], [facility]83 Product Strategy Director: Murtaza Arceo MD Hemoglobin (Bld) [Mass/Vol] 14.1 g/dL Normal 11.9-15.1 [facility] Comment on above: Performed By: #### C DP, CP #### [address] [place], [place] [phone] Product Strategy Director: Murtaza Arceo MD Immature granulocytes/100 WBC (Bld) 0 % Normal 0 [facility] Comment on above: Performed By: #### C DP, CP #### [address] [place], [facility]83 Product Strategy Director: Murtaza Arceo MD Lymphocytes (Bld) [#/Vol] 4.03 10*3/uL High 1.10-3.70 [facility] Comment on above: Performed By: #### C DP, CP #### [address] [place] [address] Product Strategy Director: Murtaza Arceo MD Lymphocytes/100 WBC (Bld) 33 % Normal 24-43 [facility] Comment on above: Performed By: #### C DP, CP #### [facility] [address] [place], [place] [phone] Product Strategy Director: Murtaza Arceo MD MCH (RBC) [Entitic mass] 28.9 pg Normal 25.2-33.5 [facility] Comment on above: Performed By: #### C DP, CP #### [address] [place], [facility]83 Product Strategy Director: Murtaza Arceo MD MCHC (RBC) [Mass/Vol] 32.8 g/dL Normal 28.4-34.8 [facility] Comment on above: Performed By: #### C DP, CP #### [address] [place] [id number] Product Strategy Director: Murtaza Arceo MD MCV (RBC) [Entitic vol] 88.1 fL Normal 82.6-102.9 [facility] Comment on above: Performed By: #### C DP, CP #### [address] [place], [place] [phone] Product Strategy Director: Murtaza Arceo MD Monocytes (Bld) [#/Vol] 0.77 10*3/uL Normal 0.10-1.20 [facility] Comment on above: Performed By: #### C DP, CP #### [address] [place], [facility]83 Product Strategy Director: Murtaza Arceo MD Monocytes/100 WBC (Bld) 6 % Normal 3-12 [facility] Comment on above: Performed By: #### C DP, CP #### [address] [place], [place] 436[address]83 Product Strategy Director: Murtaza Arceo MD Neutrophil (Seg) 60 % Normal 36-65 [facility] Comment on above: Performed By: #### C DP, CP #### [address] [place], [facility]83 Product Strategy Director: Murtaza Arceo MD NRBC Automated 0.0 per 100 WBC Normal 0.0 [facility] Comment on above: Performed By: #### C DP, CP #### [facility] [address] [place], [place] [address]83 Product Strategy Director: Murtaza Arceo MD Platelet mean volume (Bld) [Entitic vol] 9.8 fL Normal 8.1-13.5 [facility] Comment on above: Performed By: #### C DP, CP #### [facility] [address] [place], [place] 2463983 Product Strategy Director: Murtaza Arceo MD Platelets (Bld) [#/Vol] 249 10*3/uL Normal 138-453 [facility] Comment on above: Performed By: #### C DP, CP #### [address] [place], [place] 3943983 Product Strategy Director: Murtaza Arceo MD RBC (Bld) [#/Vol] 4.88 10*6/uL Normal 3.95-5.11 [facility] Comment on above: Performed By: #### C DP, CP #### [address] [place], [place] 6964083 Product Strategy Director: Murtaza Arceo MD WBC (Bld) [#/Vol] 12.2 10*3/uL High 3.5-11.3 [facility] Comment on above: Performed By: #### C DP, CP #### [address] [place], [place] 5654383 Product Strategy Director: Murtaza Arceo MD Comp Metabolic Pr/rfx MGon 0 - Albumin [Mass/Vol] 4.0 g/dL Normal 3.5-5.2 [facility] Comment on above: Performed By: #### C DP, CP #### [address] [place], [place] 5170983 Product Strategy Director: Murtaza Arceo MD Albumin/Glob Ratio 1.5 Normal 1.0-2.5 [facility] Comment on above: Performed By: #### C DP, CP #### [facility] [address] [place], [place] [phone] Product Strategy Director: Murtaza Arceo MD Alkaline Phos 88 U/L Normal 35-104 [facility] Comment on above: Performed By: #### C DP, CP #### [facility] [address] [place], [place] 7562383 Product Strategy Director: Murtaza Arceo MD ALT [Catalytic activity/Vol] 23 U/L Normal 10-35 [facility] Comment on above: Performed By: #### C DP, CP #### [facility] [address] [place], [place] [phone] Product Strategy Director: Murtaza Arceo MD Anion gap [Moles/Vol] 9 mmol/L Normal 9-16 [facility] Comment on above: Performed By: #### C DP, CP #### [facility] [address] [place], [place] 4396183 Product Strategy Director: Murtaza Arceo MD AST [Catalytic activity/Vol] 23 U/L Normal 10-35 [facility] Comment on above: Performed By: #### C DP, CP #### [facility] [address] [place], [place] 2583683 Product Strategy Director: Murtaza Arceo MD Bilirubin [Mass/Vol] 0.4 mg/dL Normal 0.00-1.20 [facility] Comment on above: Performed By: #### C DP, CP #### [facility] [address] [place], [place] 4702383 Product Strategy Director: Murtaza Arceo MD BUN/CRE Ratio 24 High 9-20 [facility] Comment on above: Performed By: #### C DP, CP #### [facility] [address] [place] [address] Product Strategy Director: Murtaza Arceo MD Calcium [Mass/Vol] 9.1 mg/dL Normal 8.6-10.4 [facility] Comment on above: Performed By: #### C DP, CP #### [facility] [address] [place], [place] [phone] Product Strategy Director: Murtaza Arceo MD Chloride [Moles/Vol] 106 mmol/L Normal 98-107 [facility] Comment on above: Performed By: #### C DP, CP #### [facility] [address] [place], [place] [phone] Product Strategy Director: Murtaza Arceo MD CO2 [Moles/Vol] 27 mmol/L Normal 20-31 [facility] Comment on above: Performed By: #### C DP, CP #### [address] [place], [place] 5402083 Product Strategy Director: Murtaza Arceo MD Creatinine [Mass/Vol] 0.8 mg/dL Normal 0.50-0.90 [facility] Comment on above: Performed By: #### C DP, CP #### [address] [place] [address] Product Strategy Director: Murtaza Arceo MD GFR/1.73 sq M.predicted among non-blacks MDRD (S/P/Bld) [Vol rate/Area] mL/min/{1.73_m2} Normal >60 [facility] Comment on above: Result Comment: These [...] secretion. Performed By: #### C DP, CP #### [facility] [address] [place] [address] Dr. [place], [place] [phone] Product Strategy Director: Murtaza Arceo MD Glucose [Mass/Vol] 169 mg/dL High 74-99 [facility] Comment on above: Performed By: #### C DP, CP #### [facility] [address] [place], [place] [id number] Product Strategy Director: Murtaza Arceo MD Potassium [Moles/Vol] 4.5 mmol/L Normal 3.7-5.3 [facility] Comment on above: Result Comment: Spec imen hemolysis has exceeded the interference as defined by Sonal. Value may be falsely increased. Suggest recollection if clinically indicated. Performed By: #### C DP, CP #### [facility] [address] [place] [address] Dr. [place], [place] [phone] Product Strategy Director: Murtaza Arceo MD Protein [Mass/Vol] 6.6 g/dL Normal 6.6-8.7 [facility] Comment on above: Performed By: #### C DP, CP #### [facility] [address] [place] [address] Dr. [place], [place] [phone] Product Strategy Director: Murtaza Arceo MD Sodium [Moles/Vol] 142 mmol/L Normal 136-145 [facility] Comment on above: Performed By: #### C DP, CP #### [address] [place], [place] 801[address]83 Product Strategy Director: Murtaza Arceo MD Urea nitrogen [Mass/Vol] 19 mg/dL Normal 6-20 [facility] Comment on above: Performed By: #### C DP, CP #### [facility] [address] [place] [address] Product Strategy Director: Murtaza Arceo MD Comprehensive Metabolic Pane l w/ Reflex to MGon 11-05-2024 Albumin [Mass/Vol] 4.0 g/dL 3.5 - 5.2 g/dL [facility] Albumin/Globulin [Mass ratio] 1.5 {ratio} 1.0 - 2.5 [facility] ALP [Catalytic activity/Vol] 88 U/L 35 - 104 U/L [facility] ALT [Catalytic activity/Vol] 23 U/L 10 - 35 U/L [facility] Anion gap [Moles/Vol] 9 mmol/L 9 - 16 mmol/L [facility] AST [Catalytic activity/Vol] 23 U/L 10 - 35 U/L [facility] Bilirubin [Mass/Vol] 0.4 mg/dL 0.00 - 1.20 mg/dL [facility] Calcium [Mass/Vol] 9.1 mg/dL 8.6 - 10. 4 mg/dL [facility] Chloride [Moles/Vol] 106 mmol/L 98 - 10 7 mmol/L [facility] CO2 [Moles/Vol] 27 mmol/L 20 - 31 mmol/L [facility] Creatinine [Mass/Vol] 0.8 mg/dL 0.50 - 0.90 mg/dL [facility] Est, Glom Filt Rate - PINF [facility] Comment on above: These results are not [...] 169 mg/dL High 74 - 99 mg/dL [facility] Potassium [Moles/Vol] 4.5 mmol/L 3.7 - 5.3 mmol/L [facility] Comment on above: Specimen hemolysis h as exceeded the interference as defined by Sonal. Value may be falsely increased. Suggest recollection if clinically indicated. Protein [Mass/Vol] 6.6 g/dL 6.6 - 8.7 g/dL [facility] Sodium [Moles/Vol] 142 mmol/L 136 - 145 mmol/L [facility] Urea nitrogen [Mass/Vol] 19 mg/dL 6 - 20 mg/dL [facility] Urea nitrogen/Creatinine [Mass ratio] 24 mg/mg High 9 - 20 [facility] Glucose, Whole Bloodon 11-05 Glucose [Mass/Vol] 114 mg/dL High 74 - 100 mg/dL [facility] Interpretation and review of laboratory results Abnormal [facility] Glucose [Mass/Vol] 114 mg/dL High 74-100 [facility] Glucose [Mass/Vol] 175 mg/dL High 74 - 100 mg/dL [facility] Interpretation and review of laboratory results Abnormal [facility] Glucose [Mass/Vol] 175 mg/dL High 74-100 [facility] Glucose [Mass/Vol] 189 mg/dL High 74 - 100 mg/dL [facility] Interpretation and review of laboratory results Abnormal [facility] Glucose [Mass/Vol] 189 mg/dL High 74-100 [facility] Glucose [Mass/Vol] 157 mg/dL High 74 - 100 mg/dL [facility] Interpretation and review of laboratory results Abnormal [facility] Glucose [Mass/Vol] 157 mg/dL High 74-100 [facility] Lipaseon 11-05-2024 Lipase [Catalytic activity/Vol] 179 U/L High 13 - 60 U/L [facility] Lipase [Catalytic activity/Vol] 179 U/L High 13-60 [facility] Comment on above: Performed By: #### C DP, CP #### [facility] [address] [place] [address] [place] [address] Product Strategy Director: Murtaza Arceo MD MHPT CBC WITH DIFFon 025 Basophils/100 WBC (Bld) 0 % 0 - 2 % [facility] Eosinophils/100 WBC (Bld) 1 % 1 - 4 % [facility] Erythrocyte distribution width (RBC) [Ratio] 14.1 % 11.8 - 14.4 % [facility] Hematocrit (Bld) [Volume fraction] 43 % 36.3 - 47.1 % [facility] Hemoglobin (Bld) [Mass/Vol] 14.1 g/dL 11.9 - 15.1 g/dL [facility] Immature granulocytes/100 WBC (Bld) 0 % 0 [facility] Interpretation and review of laboratory results Abnormal [facility] Lymphocytes/100 WBC (Bld) 33 % 24 - 43 % [facility] MCH (RBC) [Entitic mass] 28.9 pg 25.2 - 33.[address] [facility] MCHC (RBC) [Mass/Vol] 32.8 g/dL 28.4 - 34.8 g/dL [facility] MCV (RBC) [Entitic vol] 88.1 fL 82.6 - 102.[address] [facility] MHPT [facility] LYMPH 4.[address] [facility] ABS.IMM.GRANULOCYTE 0.04 [facility].NEUTROPHIL (SEG) 7.13 [facility] NRBC AUTOMATED 0 0.[address] MHPT WBC COUNT 12.[address] [facility] Monocytes/100 WBC (Bld) 6 % 3 - 12 % [facility] Platelet mean volume (Bld) [Entitic vol] 9.8 fL 8.1 - 13.[address] [facility] RBC (Bld) [#/Vol] 4.88 10*6/uL 3.95 - 5.1 1 m/uL [facility] Segmented neutrophils/100 WBC (Bld) 60 % 36 - 65 % [facility] Original Ordering Provider: OCLTEN SINGH [facility] No Panel Informationon 11-05 Interpretation and review of laboratory results Abnormal [facility] Basic Metabolic Panelon 10-24 Anion gap [Moles/Vol] 12 mmol/L 9 - 16 mmol/L [facility] Calcium [Mass/Vol] 9.7 mg/dL 8.6 - 10. 4 mg/dL [facility] Chloride [Moles/Vol] 102 mmol/L 98 - 10 7 mmol/L [facility] CO2 [Moles/Vol] 24 mmol/L 20 - 31 mmol/L [facility] Creatinine [Mass/Vol] 0.8 mg/dL 0.50 - 0.90 mg/dL [facility] Amarilis Bailey - SIMONA [facility] Comment on above: These results are not [...] 224 mg/dL High 74 - 99 mg/dL [facility] Interpretation and review of laboratory results Abnormal [facility] Potassium [Moles/Vol] 3.9 mmol/L 3.7 - 5.3 mmol/L [facility] Sodium [Moles/Vol] 138 mmol/L 136 - 145 mmol/L [facility] Urea nitrogen [Mass/Vol] 18 mg/dL 6 - 20 mg/dL [facility] Urea nitrogen/Creatinine [Mass ratio] 23 mg/mg High 9 - 20 [facility] Basic Metabolic Profon 11-04 Anion gap [Moles/Vol] 12 mmol/L Normal 9-16 [facility] Comment on above: Performed By: #### L IP, LIVP, CDP, BMP ####[address] [place] [address] lab Director: Murtaza Arceo MD BUN/CRE Ratio 23 High 9-20 [facility] Comment on above: Performed By: #### L IP, LIVP, CDP, BMP ####[address] [place] [address] lab Director: Murtaza Arceo MD Calcium [Mass/Vol] 9.7 mg/dL Normal 8.6-10.4 [facility] Comment on above: Performed By: #### L IP, LIVP, CDP, BMP ####[address] [place] [address] lab Director: Murtaza Arceo MD Chloride [Moles/Vol] 102 mmol/L Normal 98-107 [facility] Comment on above: Performed By: #### L IP, LIVP, CDP, BMP ####[facility] [place] , [place] 1007783 Lab Director: Murtaza Arceo MD CO2 [Moles/Vol] 24 mmol/L Normal 20-31 [facility] Comment on above: Performed By: #### L IP, LIVP, CDP, BMP ####[facility] [place] , [place] [id number] lab Director: Murtaza Arceo MD Creatinine [Mass/Vol] 0.8 mg/dL Normal 0.50-0.90 [facility] Comment on above: Performed By: #### L IP, LIVP, CDP, BMP ####[address] , [place] [id number] lab Director: Murtaza Arceo MD GFR/1.73 sq M.predicted among non-blacks MDRD (S/P/Bld) [Vol rate/Area] mL/min/{1.73_m2} Normal >60 [facility] Comment on above: Result Comment: These [...] renal tubular secretion. Performed By: #### L IP, LIVP, CDP, BMP ####[address] , [place] [id number] Lab Director: Murtaza Arceo MD Glucose [Mass/Vol] 224 mg/dL High 74-99 [facility] Comment on above: Performed By: #### L IP, LIVP, CDP, BMP ####[address] , [place] [id number] lab Director: Murtaza Arceo MD Potassium [Moles/Vol] 3.9 mmol/L Normal 3.7-5.3 [facility] Comment on above: Performed By: #### L IP, LIVP, CDP, BMP ####[facility] [place] [address] lab Director: Murtaza Arceo MD Sodium [Moles/Vol] 138 mmol/L Normal 136-145 [facility] Comment on above: Performed By: #### L IP, LIVP, CDP, BMP ####[facility] [place] , [place] [id number] lab Director: Murtaza Arceo MD Urea nitrogen [Mass/Vol] 18 mg/dL Normal 6-20 [facility] Comment on above: Performed By: #### L IP, LIVP, CDP, BMP ####[facility] [place] , [place] 8978083 lab Director: Murtaza Arceo MD CBC with Auto Differentialon 11-04-2024 Basophils (Bld) [#/Vol] 0.06 10*3/uL [facility] Basophils/100 WBC (Bld) 1 % 0 - 2 % [facility] Eosinophils (Bld) [#/Vol] 0.15 10*3/uL [facility] Eosinophils/100 WBC (Bld) 1 % 1 - 4 % [facility] Erythrocyte distribution width (RBC) [Ratio] 13.9 % 11.8 - 14.4 % [facility] Hematocrit (Bld) [Volume fraction] 44.6 % 36.3 - 47.1 % [facility] Hemoglobin (Bld) [Mass/Vol] 15.1 g/dL 11.9 - 15.1 g/dL [facility] Immature granulocytes (Bld) [#/Vol] 0.05 10*3/uL [facility] Immature granulocytes/100 WBC (Bld) 0 % 0 [facility] Interpretation and review of laboratory results Abnormal [facility] Lymphocytes/100 WBC (Bld) 36 % 24 - 43 % [facility] Lymphocytes/100 WBC (Bld) 4.70 % High [facility] MCH (RBC) [Entitic mass] 29.3 pg 25.2 - 33.5 pg [facility] MCHC (RBC) [Mass/Vol] 33.9 g/dL 28.4 - 34.8 g/dL [facility] MCV (RBC) [Entitic vol] 86.6 fL 82.6 - 102.9 fL [facility] Monocytes/100 WBC (Bld) 5 % 3 - 12 % [facility] Monocytes/100 WBC (Bld) 0.64 % [facility] Neutrophils/100 WBC (Bld) 57 % 36 - 65 % [facility] Nucleated RBC/100 WBC (Bld) [Ratio] 0.0 % 0.0 per 100 WBC [facility] Platelet mean volume (Bld) [Entitic vol] 10.1 fL 8.1 - 13.5 fL [facility] Platelets (Bld) [#/Vol] 322 10*3/uL [facility] RBC (Bld) [#/Vol] 5.15 10*6/uL High 3.95 - 5.1 1 m/uL [facility] Segmented neutrophils/100 WBC (Bld) 7.45 % [facility] WBC other (Bld) [#/Vol] 13.1 High [facility] CBC with Diffon 11-04-2024 Abs. Basophil 0.06 k/uL Normal 0.00-0.20 [facility] Comment on above: Performed By: #### L IP, LIVP, CDP, BMP ####[facility] [place] , [place] [id number] Lab Director: Murtaza Arceo MD Abs.Imm.Granulocyte 0.05 k/uL Normal 0.00-0.30 [facility] Comment on above: Performed By: #### L IP, LIVP, CDP, BMP ####[facility] [place] , [place] [id number] lab Director: Murtaza Arceo MD Abs.Neutrophil (Seg) 7.45 k/uL Normal 1.50-8.10 [facility] Comment on above: Performed By: #### L IP, LIVP, CDP, BMP ####[address] , [place] 4041383 Lab Director: Murtaza Arceo MD Basophils/100 WBC (Bld) 1 % Normal 0-2 [facility] Comment on above: Performed By: #### L IP, LIVP, CDP, BMP ####[address] [place] [address] Lab Director: Murtaza Arceo MD Eosinophils (Bld) [#/Vol] 0.15 10*3/uL Normal 0.00-0.44 [facility] Comment on above: Performed By: #### L IP, LIVP, CDP, BMP ####[address] [place] [address] Lab Director: Murtaza Arceo MD Eosinophils/100 WBC (Bld) 1 % Normal 1-4 [facility] Comment on above: Performed By: #### L IP, LIVP, CDP, BMP ####[address] , [place] 7442483 Lab Director: Murtaza Arceo MD Erythrocyte distribution width (RBC) [Ratio] 13.9 % Normal 11.8-14.4 [facility] Comment on above: Performed By: #### L IP, LIVP, CDP, BMP ####[address] , [place] [phone] Lab Director: Murtaza Arceo MD Hematocrit (Bld) [Volume fraction] 44.6 % Normal 36.3-47.1 [facility] Comment on above: Performed By: #### L IP, LIVP, CDP, BMP ####[address] , [place] [id number] Lab Director: Murtaza Arceo MD Hemoglobin (Bld) [Mass/Vol] 15.1 g/dL Normal 11.9-15.1 [facility] Comment on above: Performed By: #### L IP, LIVP, CDP, BMP ####[address] , [place] [id number] Lab Director: Murtaza Arceo MD Immature granulocytes/100 WBC (Bld) 0 % Normal 0 [facility] Comment on above: Performed By: #### L IP, LIVP, CDP, BMP ####[address] [place] [address] Lab Director: Murtaza Arceo MD Lymphocytes (Bld) [#/Vol] 4.70 10*3/uL High 1.10-3.70 [facility] Comment on above: Performed By: #### L IP, LIVP, CDP, BMP ####[address] , [place] 8080483 Lab Director: Murtaza Arceo MD Lymphocytes/100 WBC (Bld) 36 % Normal 24-43 [facility] Comment on above: Performed By: #### L IP, LIVP, CDP, BMP ####[address] , [place] 3323683 Lab Director: Murtaza Arceo MD MCH (RBC) [Entitic mass] 29.3 pg Normal 25.2-33.5 [facility] Comment on above: Performed By: #### L IP, LIVP, CDP, BMP ####[address] , [place] [id number] Lab Director: Murtaza Arceo MD MCHC (RBC) [Mass/Vol] 33.9 g/dL Normal 28.4-34.8 [facility] Comment on above: Performed By: #### L IP, LIVP, CDP, BMP ####[address] , [place] 4291083 Lab Director: Murtaza Arceo MD MCV (RBC) [Entitic vol] 86.6 fL Normal 82.6-102.9 [facility] Comment on above: Performed By: #### L IP, LIVP, CDP, BMP ####[address] [place] [address] Lab Director: Murtaza Arceo MD Monocytes (Bld) [#/Vol] 0.64 10*3/uL Normal 0.10-1.20 [facility] Comment on above: Performed By: #### L IP, LIVP, CDP, BMP ####[address] , [place] 8436183 lab Director: Murtaza Arceo MD Monocytes/100 WBC (Bld) 5 % Normal 3-12 [facility] Comment on above: Performed By: #### L IP, LIVP, CDP, BMP ####[address] , [facility]83 lab Director: Murtaza Arceo MD Neutrophil (Seg) 57 % Normal 36-65 [facility] Comment on above: Performed By: #### L IP, LIVP, CDP, BMP ####[address] , [place] 2440983 Lab Director: Murtaza Arceo MD NRBC Automated 0.0 per 100 WBC Normal 0.0 [facility] Comment on above: Performed By: #### L IP, LIVP, CDP, BMP ####[address] [place] [address] lab Director: Murtaza Arceo MD Platelet mean volume (Bld) [Entitic vol] 10.1 fL Normal 8.1-13.5 [facility] Comment on above: Performed By: #### L IP, LIVP, CDP, BMP ####[address] , [place] 957[address]83 Lab Director: Murtaza Arceo MD Platelets (d) [#/Vol] 322 10*3/uL Normal 138-453 [facility] Comment on above: Performed By: #### L IP, LIVP, CDP, BMP ####[facility] [place] , [place] [id number] Lab Director: Murtaza Arceo MD RBC (d) [#/Vol] 5.15 10*6/uL High 3.95-5.11 [facility] Comment on above: Performed By: #### L IP, LIVP, CDP, BMP ####[facility] [place] , [place] 9292683 Lab Director: Murtaza Arceo MD WBC (d) [#/Vol] 13.1 10*3/uL High 3.5-11.3 [facility] Comment on above: Performed By: #### L IP, LIVP, CDP, BMP ####[facility] [place] , [place] [id number] Lab Director: Murtaza Arceo MD CT Abdomen and Pelvis W cont rast Maurilio 11-04-2024 Radiology Study observation (narrative) [facility] Hepatic Function Panelon Albumin [Mass/Vol] 4.1 g/dL 3.5 - 5.2 g/dL [facility] Albumin/Globulin [Mass ratio] 1.3 {ratio} 1.0 - 2.5 [facility] ALP [Catalytic activity/Vol] 96 U/L 35 - 104 U/L [facility] ALT [Catalytic activity/Vol] 27 U/L 10 - 35 U/L [facility] AST [Catalytic activity/Vol] 27 U/L 10 - 35 U/L [facility] Bilirubin [Mass/Vol] 0.5 mg/dL 0.00 - 1.20 mg/dL [facility] Bilirubin.direct [Mass/Vol] mg/dL 0.00 - 0.30 mg/dL [facility] Bilirubin.indirect [Mass/Vol] Can not be calculated 0.0 - 1.0 mg/dL [facility] Protein [Mass/Vol] 7.3 g/dL 6.6 - 8.7 g/dL [facility] Lipaseon 11-04-2024 Interpretation and review of laboratory results Abnormal [facility] Lipase [Catalytic activity/Vol] 573 U/L High 13 - 60 U/L [facility] Lipase [Catalytic activity/Vol] 573 U/L High 13-60 [facility] Comment on above: Performed By: #### L IP, LIVP, CDP, BMP ####[facility] [place] , [place] 0[address]83 Lab Director: Murtaza Arceo MD Liver Profileon 11-04-2024 Albumin [Mass/Vol] 4.1 g/dL Normal 3.5-5.2 [facility] Comment on above: Performed By: #### L IP, LIVP, CDP, BMP ####[address] , [place] 5470383 Lab Director: Murtaza Arceo MD Albumin/Glob Ratio 1.3 Normal 1.0-2.5 [facility] Comment on above: Performed By: #### L IP, LIVP, CDP, BMP ####[address] , [place] 9057[address] Lab Director: Murtaza Arceo MD Alkaline Phos 96 U/L Normal 35-104 [facility] Comment on above: Performed By: #### L IP, LIVP, CDP, BMP ####[facility] [place] , [place] 3016383 lab Director: Murtaza Arceo MD ALT [Catalytic activity/Vol] 27 U/L Normal 10-35 [facility] Comment on above: Performed By: #### L IP, LIVP, CDP, BMP ####[facility] [place] , [place] 1227183 lab Director: Murtaza Arceo MD AST [Catalytic activity/Vol] 27 U/L Normal 10-35 [facility] Comment on above: Performed By: #### L IP, LIVP, CDP, BMP ####[facility] [place] , [place] 4753783 Lab Director: Murtaza Arceo MD Bilirubin [Mass/Vol] 0.5 mg/dL Normal 0.00-1.20 [facility] Comment on above: Performed By: #### L IP, LIVP, CDP, BMP ####[facility] [place] , [place] 6063983 lab Director: Murtaza Arceo MD Bilirubin, Indirect Can not be calculated Normal 0.0-1 .0 [facility] Comment on above: Performed By: #### L IP, LIVP, CDP, BMP ####[address] , [place] 2771083 Lab Director: Murtaza Arceo MD Bilirubin.indirect [Mass/Vol] mg/dL Normal 0.00-0.30 [facility] Comment on above: Performed By: #### L IP, LIVP, CDP, BMP ####[address] , [place] 9355283 Lab Director: Murtaza Arceo MD Protein [Mass/Vol] 7.3 g/dL Normal 6.6-8.7 [facility] Comment on above: Performed By: #### L IP, LIVP, CDP, BMP ####[address] , [place] 830[address]83 Lab Director: Murtaza Arceo MD Microscopic Urinalysison Bacteria LM Ql (Urine sed) 2+ Abnormal None [facility] Epithelial cells LM.HPF (Urine sed) [#/Area] 2 TO 5 [facility] Interpretation and review of laboratory results Abnormal [facility] RBC LM.HPF (Urine sed) [#/Area] 0 TO 2 [facility] WBC LM.HPF (Urine sed) [#/Area] 2 TO 5 [facility] No Panel Informationon 11-04 [facility] Urinalysison 11-04-2024 Bilirubin Ql (U) Negative [facility]GATIVE [facility] Clarity (U) Clear Clear [facility] Color (U) Yellow Yellow [facility] Glucose Test strip (U) [Mass/Vol] 3+ Abnormal NEGATIVE mg/dL [facility] Hemoglobin Auto test strip Ql (U) Negative NEGATIVE [facility] Interpretation and review of laboratory results Abnormal [facility] Ketones (U) [Mass/Vol] Negative NEGAT [facility] mg/dL [facility] Leukocyte esterase Test strip Ql (U) Negative NEGATIVE [facility] Nitrite Ql (U) Negative NEGATIVE [facility] pH (U) 6.0 [pH] 5.0 - 9.0 [facility] Protein (U) [Mass/Vol] Negative NEGAT [facility] mg/dL [facility] Specific gravity (U) [Rel density] High 1.010 - 1.020 [facility] Urobilinogen Qn (U) Normal 0.0 - 1. 0 EU/dL [facility] Urinalysis, Routineon 2024 Bilirubin, SemiQt,Ur Negative Normal NEG [facility] Comment on above: Performed By: #### C DP, CP #### [facility] [address] [place] [address] Product Strategy Director: Murtaza Arceo MD Blood, Urine Negative Normal NEG [facility] Comment on above: Performed By: #### C DP, CP #### [facility] [address] [place] [address] Product Strategy Director: Murtaza Arceo MD Clarity (U) Clear Normal CLEAR [facility] Comment on above: Performed By: #### C DP, CP #### [facility] [address] [place] [address] Product Strategy Director: Murtaza Arceo MD Color (U) Yellow Normal YEL [facility] Comment on above: Performed By: #### C DP, CP #### [facility] [address] [place] [address] Dr. [place], [place] [id number] Product Strategy Director: Murtaza Arceo MD Glucose Ql (U) 3+ mg/dL Abnormal NEG [facility] Comment on above: Performed By: #### C DP, CP #### [facility] [address] [place] [address] [place] [address] Product Strategy Director: Murtaza Arceo MD Ketones Ql (U) Negative Normal NEG [facility] Comment on above: Performed By: #### C DP, CP #### [address] [place] [address] Product Strategy Director: Murtaza Arceo MD Leukocyte esterase Test strip Ql (U) Negative Normal NEG [facility] Comment on above: Performed By: #### C DP, CP #### [facility] [address] [place] [address] [place] [address] Product Strategy Director: Murtaza Arceo MD Nitrite,Ur Negative Normal NEG [facility] Comment on above: Performed By: #### C DP, CP #### [facility] [address] [place] [address] [place] [address] Product Strategy Director: Murtaza Arceo MD PH,Ur 6.0 Normal 5.0-9.0 [facility] Comment on above: Performed By: #### C DP, CP #### [facility] [address] [place] [address] [place] [address] Product Strategy Director: Murtaza Arceo MD Protein Ql (U) Negative Normal NEG [facility] Comment on above: Performed By: #### C DP, CP #### [facility] [address] [place] [address] [place] [address] Product Strategy Director: uMrtaza Arceo MD Spec. Onyx,Ur >1.030 High 1.010-1.020 [facility] Comment on above: Performed By: #### C DP, CP #### [facility] [address] [place], [place] [id number] Product Strategy Director: Murtaza Arceo MD Urobilinogen,Ur Normal Normal 0.0-1.0 [facility] Comment on above: Performed By: #### C DP, CP #### [facility] [address] [place], [place] [phone] Product Strategy Director: Murtaza Arceo MD Urinalysis,Microon 5 Bacteria 2+ Abnormal NONE [facility] Comment on above: Performed By: #### C DP, CP #### [facility] [address] [place] [address] [place], [place] [phone] Product Strategy Director: Murtaza Arceo MD Epithelial cells LM Ql (Urine sed) 2 TO 5 Normal 0-25 [facility] Comment on above: Performed By: #### C DP, CP #### [facility] [address] [place], [place] 8090583 Product Strategy Director: Murtaza Arceo MD Urine RBC's 0 TO 2 Normal 0-2 [facility] Comment on above: Performed By: #### C DP, CP #### [facility] [address] [place] [address] Dr[address] [place], [place] [id number] Product Strategy Director: Murtaza Arceo MD Urine WBC's 2 TO 5 Normal 0-5 [facility] Comment on above: Performed By: #### C DP, CP #### [facility] [address] [place], [place] [phone] Product Strategy Director: Murtaza Arceo MD CBC auto differentialon 09-24 Basophils (Bld) [#/Vol] 0.04 10*3/uL [facility] Basophils/100 WBC (Bld) 1 % 0 - 2 % [facility] Eosinophils (Bld) [#/Vol] 0.13 10*3/uL [facility] Eosinophils/100 WBC (Bld) 2 % 1 - 4 % [facility] Erythrocyte distribution width (RBC) [Ratio] 13.7 % 11.8 - 14.4 % [facility] Hematocrit (Bld) [Volume fraction] 43.2 % 36.3 - 47.1 % [facility] Hemoglobin (Bld) [Mass/Vol] 14.1 g/dL 11.9 - 15.1 g/dL [facility] Immature granulocytes (Bld) [#/Vol] 0.04 10*3/uL [facility] Immature granulocytes/100 WBC (Bld) 1 % High 0 [facility] Interpretation and review of laboratory results Abnormal [facility] Lymphocytes/100 WBC (Bld) 42 % 24 - 43 % [facility] Lymphocytes/100 WBC (Bld) 3.33 % [facility] MCH (RBC) [Entitic mass] 28.4 pg 25.2 - 33.5 pg [facility] MCHC (RBC) [Mass/Vol] 32.6 g/dL 28.4 - 34.8 g/dL [facility] MCV (RBC) [Entitic vol] 86.9 fL 82.6 - 102.9 fL [facility] Monocytes/100 WBC (Bld) 6 % 3 - 12 % [facility] Monocytes/100 WBC (Bld) 0.48 % [facility] Neutrophils/100 WBC (Bld) 49 % 36 - 65 % [facility] Nucleated RBC/100 WBC (Bld) [Ratio] 0.0 % 0.0 per 100 WBC [facility] Platelet mean volume (Bld) [Entitic vol] 10.3 fL 8.1 - 13.5 fL [facility] Platelets (Bld) [#/Vol] 256 10*3/uL [facility] RBC (Bld) [#/Vol] 4.97 10*6/uL 3.95 - 5.1 1 m/uL [facility] Segmented neutrophils/100 WBC (Bld) 3.83 % [facility] WBC other (Bld) [#/Vol] 7.9 [facility] CBC with Diffon 10-21-2024 Abs. Basophil 0.04 k/uL Normal 0.00-0.20 [facility] Comment on above: Performed By: #### C MPX, LIP, CDP ####[address] [place] [address] Lab Director: Murtaza Arceo MD Abs.Imm.Granulocyte 0.04 k/uL Normal 0.00-0.30 [facility] Comment on above: Performed By: #### C MPX, LIP, CDP ####[address] [place] [address] Lab Director: Murtaza Arceo MD Abs.Neutrophil (Seg) 3.83 k/uL Normal 1.50-8.10 [facility] Comment on above: Performed By: #### C MPX, LIP, CDP ####[address] , [facility]83 Lab Director: Murtaza Arceo MD Basophils/100 WBC (Bld) 1 % Normal 0-2 [facility] Comment on above: Performed By: #### C MPX, LIP, CDP ####[address] [place] [address] Lab Director: Murtaza Arceo MD Eosinophils (Bld) [#/Vol] 0.13 10*3/uL Normal 0.00-0.44 [facility] Comment on above: Performed By: #### C MPX, LIP, CDP ####[address] [place] [address] Lab Director: Murtaza Arceo MD Eosinophils/100 WBC (Bld) 2 % Normal 1-4 [facility] Comment on above: Performed By: #### C MPX, LIP, CDP ####[address] [place] [address] Lab Director: Murtaza Arceo MD Erythrocyte distribution width (RBC) [Ratio] 13.7 % Normal 11.8-14.4 [facility] Comment on above: Performed By: #### C MPX, LIP, CDP ####[address] , [place] [id number] Lab Director: Murtaza Arceo MD Hematocrit (Bld) [Volume fraction] 43.2 % Normal 36.3-47.1 [facility] Comment on above: Performed By: #### C MPX, LIP, CDP ####[address] [place] [address] Lab Director: Murtaza Arceo MD Hemoglobin (Bld) [Mass/Vol] 14.1 g/dL Normal 11.9-15.1 [facility] Comment on above: Performed By: #### C MPX, LIP, CDP ####[address] [place] [address] Lab Director: Murtaza Arceo MD Immature granulocytes/100 WBC (Bld) 1 % High 0 [facility] Comment on above: Performed By: #### C MPX, LIP, CDP ####[address] [place] [address] Lab Director: Murtaza Arceo MD Lymphocytes (Bld) [#/Vol] 3.33 10*3/uL Normal 1.10-3.70 [facility] Comment on above: Performed By: #### C MPX, LIP, CDP ####[address] [place] [address] Lab Director: Murtaza Arceo MD Lymphocytes/100 WBC (Bld) 42 % Normal 24-43 [facility] Comment on above: Performed By: #### C MPX, LIP, CDP ####[address] , [place] 2821383 Lab Director: Murtaza Arceo MD MCH (RBC) [Entitic mass] 28.4 pg Normal 25.2-33.5 [facility] Comment on above: Performed By: #### C MPX, LIP, CDP ####[address] , [place] 4544083 Lab Director: Murtaza Arceo MD MCHC (RBC) [Mass/Vol] 32.6 g/dL Normal 28.4-34.8 [facility] Comment on above: Performed By: #### C MPX, LIP, CDP ####[address] [place] [address] lab Director: Murtaza Arceo MD MCV (RBC) [Entitic vol] 86.9 fL Normal 82.6-102.9 [facility] Comment on above: Performed By: #### C MPX, LIP, CDP ####[address] [place] [address] Lab Director: Murtaza Arceo MD Monocytes (Bld) [#/Vol] 0.48 10*3/uL Normal 0.10-1.20 [facility] Comment on above: Performed By: #### C MPX, LIP, CDP ####[address] [place] [address] Lab Director: Murtaza Arceo MD Monocytes/100 WBC (Bld) 6 % Normal 3-12 [facility] Comment on above: Performed By: #### C MPX, LIP, CDP ####[address] [place] [address] Lab Director: Murtaza Arceo MD Neutrophil (Seg) 49 % Normal 36-65 [facility] Comment on above: Performed By: #### C MPX, LIP, CDP ####[address] [place] [address] Lab Director: Murtaza Arceo MD NRBC Automated 0.0 per 100 WBC Normal 0.0 [facility] Comment on above: Performed By: #### C MPX, LIP, CDP ####[address] , [place] [id number] Lab Director: Murtaza Arceo MD Platelet mean volume (Bld) [Entitic vol] 10.3 fL Normal 8.1-13.5 [facility] Comment on above: Performed By: #### C MPX, LIP, CDP ####[address] , [place] 3708783 Lab Director: Murtaza Arceo MD Platelets (Bld) [#/Vol] 256 10*3/uL Normal 138-453 [facility] Comment on above: Performed By: #### C MPX, LIP, CDP ####[address] , [place] 8347783 Lab Director: Murtaza Arceo MD RBC (Bld) [#/Vol] 4.97 10*6/uL Normal 3.95-5.11 [facility] Comment on above: Performed By: #### C MPX, LIP, CDP ####[address] , [place] 7772383 Lab Director: Murtaza Arceo MD WBC (Bld) [#/Vol] 7.9 10*3/uL Normal 3.5-11.3 [facility] Comment on above: Performed By: #### C MPX, LIP, CDP ####[address] , [place] 5059883 Lab Director: Murtaza Arceo MD Comp Metabolic Pr/rfx MGon 0 10-21-2024 Albumin [Mass/Vol] 3.9 g/dL Normal 3.5-5.2 [facility] Comment on above: Performed By: #### C MPX, LIP, CDP ####[address] , [place] 5701683 Lab Director: Murtaza Arceo MD Albumin/Glob Ratio 1.4 Normal 1.0-2.5 [facility] Comment on above: Performed By: #### C MPX, LIP, CDP ####[address] , [place] 3895783 Lab Director: Murtaza Arceo MD Alkaline Phos 86 U/L Normal 35-104 [facility] Comment on above: Performed By: #### C MPX, LIP, CDP ####[address] , [place] 8478583 Lab Director: Murtaza Arceo MD ALT [Catalytic activity/Vol] 40 U/L High 10-35 [facility] Comment on above: Performed By: #### C MPX, LIP, CDP ####[address] , [place] 6994083 Lab Director: Murtaza Arceo MD Anion gap [Moles/Vol] 9 mmol/L Normal 9-16 [facility] Comment on above: Performed By: #### C MPX, LIP, CDP ####[address] [place] [address] Lab Director: Murtaza Arceo MD AST [Catalytic activity/Vol] 44 U/L High 10-35 [facility] Comment on above: Performed By: #### C MPX, LIP, CDP ####[address] [place] [address] Lab Director: Murtaza Arceo MD Bilirubin [Mass/Vol] 0.5 mg/dL Normal 0.00-1.20 [facility] Comment on above: Performed By: #### C MPX, LIP, CDP ####[address] , [place] 3941683 Lab Director: Murtaza Arceo MD BUN/CRE Ratio 11 Normal 9-20 [facility] Comment on above: Performed By: #### C MPX, LIP, CDP ####[address] , [place] 6825383 Lab Director: Murtaza Arceo MD Calcium [Mass/Vol] 8.6 mg/dL Normal 8.6-10.4 [facility] Comment on above: Performed By: #### C MPX, LIP, CDP ####[address] , [place] 6213483 Lab Director: Murtaza Arceo MD Chloride [Moles/Vol] 106 mmol/L Normal 98-107 [facility] Comment on above: Performed By: #### C MPX, LIP, CDP ####[address] , [place] 1322383 Lab Director: Murtaza Arceo MD CO2 [Moles/Vol] 25 mmol/L Normal 20-31 [facility] Comment on above: Performed By: #### C MPX, LIP, CDP ####[address] , [place] 2648183 Lab Director: Murtaza Arceo MD Creatinine [Mass/Vol] 0.7 mg/dL Normal 0.50-0.90 [facility] Comment on above: Performed By: #### C MPX, LIP, CDP ####[address] , [place] 7124683 Lab Director: Murtaza Arceo MD GFR/1.73 sq M.predicted among non-blacks MDRD (S/P/Bld) [Vol rate/Area] mL/min/{1.73_m2} Normal >60 [facility] Comment on above: Result Comment: These [...] renal tubular secretion. Performed By: #### C MPX, LIP, CDP ####[address] , [place] 1679083 Lab Director: Murtaza Arceo MD Glucose [Mass/Vol] 150 mg/dL High 74-99 [facility] Comment on above: Performed By: #### C MPX, LIP, CDP ####[address] , [place] 6276583 Lab Director: Murtaza Arceo MD Potassium [Moles/Vol] 4.2 mmol/L Normal 3.7-5.3 [facility] Comment on above: Performed By: #### C MPX, LIP, CDP ####[address] , [place] 6399083 Lab Director: Murtaza Arceo MD Protein [Mass/Vol] 6.7 g/dL Normal 6.6-8.7 [facility] Comment on above: Performed By: #### C MPX, LIP, CDP ####[address] , [place] 7070483 Lab Director: Murtaza Arceo MD Sodium [Moles/Vol] 140 mmol/L Normal 136-145 [facility] Comment on above: Performed By: #### C MPX, LIP, CDP ####[address] [place] [address] Lab Director: Murtaza Arceo MD Urea nitrogen [Mass/Vol] 8 mg/dL Normal 6-20 [facility] Comment on above: Performed By: #### C MPX, LIP, CDP ####[address] , [place] 1985283 Lab Director: Murtaza Arceo MD Comprehensive Metabolic Pane l w/ Reflex to MGon 10-21-2024 Albumin [Mass/Vol] 3.9 g/dL 3.5 - 5.2 g/dL [facility] Albumin/Globulin [Mass ratio] 1.4 {ratio} 1.0 - 2.5 [facility] ALP [Catalytic activity/Vol] 86 U/L 35 - 104 U/L [facility] ALT [Catalytic activity/Vol] 40 U/L High 10 - 35 U/L [facility] Anion gap [Moles/Vol] 9 mmol/L 9 - 16 mmol/L [facility] AST [Catalytic activity/Vol] 44 U/L High 10 - 35 U/L [facility] Bilirubin [Mass/Vol] 0.5 mg/dL 0.00 - 1.20 mg/dL [facility] Calcium [Mass/Vol] 8.6 mg/dL 8.6 - 10. 4 mg/dL [facility] Chloride [Moles/Vol] 106 mmol/L 98 - 10 7 mmol/L [facility] CO2 [Moles/Vol] 25 mmol/L 20 - 31 mmol/L [facility] Creatinine [Mass/Vol] 0.7 mg/dL 0.50 - 0.90 mg/dL [facility] Est, Glom Filt Rate - PINF [facility] Comment on above: These results are not [...] 150 mg/dL High 74 - 99 mg/dL [facility] Potassium [Moles/Vol] 4.2 mmol/L 3.7 - 5.3 mmol/L [facility] Protein [Mass/Vol] 6.7 g/dL 6.6 - 8.7 g/dL [facility] Sodium [Moles/Vol] 140 mmol/L 136 - 145 mmol/L [facility] Urea nitrogen [Mass/Vol] 8 mg/dL 6 - 20 mg/dL [facility] Urea nitrogen/Creatinine [Mass ratio] 11 mg/mg 9 - 20 [facility] Glucose, Whole Bloodon 10-21 Glucose [Mass/Vol] 191 mg/dL High 74 - 100 mg/dL [facility] Interpretation and review of laboratory results Abnormal [facility] Glucose [Mass/Vol] 191 mg/dL High 74-100 [facility] Glucose [Mass/Vol] 156 mg/dL High 74 - 100 mg/dL [facility] Interpretation and review of laboratory results Abnormal [facility] Glucose [Mass/Vol] 156 mg/dL High 74-100 [facility] Lipaseon 10-21-2024 Lipase [Catalytic activity/Vol] 90 U/L High 13 - 60 U/L [facility] Lipase [Catalytic activity/Vol] 90 U/L High 13-60 [facility] Comment on above: Performed By: #### C MPX, LIP, CDP ####[facility] [place] [address] [facility] Director: Murtaza Arceo MD No Panel Informationon 10-21 Interpretation and review of laboratory results Abnormal [facility] CBC with Auto Differentialon 10-20-2024 Basophils (Bld) [#/Vol] 0.07 10*3/uL [facility] Basophils/100 WBC (Bld) 1 % 0 - 2 % [facility] Eosinophils (Bld) [#/Vol] 0.15 10*3/uL [facility] Eosinophils/100 WBC (Bld) 1 % 1 - 4 % [facility] Erythrocyte distribution width (RBC) [Ratio] 13.9 % 11.8 - 14.4 % [facility] Hematocrit (Bld) [Volume fraction] 44.8 % 36.3 - 47.1 % [facility] Hemoglobin (Bld) [Mass/Vol] 15.2 g/dL High 11.9 - 15.1 g/dL [facility] Immature granulocytes (Bld) [#/Vol] 0.07 10*3/uL [facility] Immature granulocytes/100 WBC (Bld) 1 % High 0 [facility] Interpretation and review of laboratory results Abnormal [facility] Lymphocytes/100 WBC (Bld) 30 % 24 - 43 % [facility] Lymphocytes/100 WBC (Bld) 3.80 % High [facility] MCH (RBC) [Entitic mass] 29.1 pg 25.2 - 33.5 pg [facility] MCHC (RBC) [Mass/Vol] 33.9 g/dL 28.4 - 34.8 g/dL [facility] MCV (RBC) [Entitic vol] 85.7 fL 82.6 - 102.9 fL [facility] Monocytes/100 WBC (Bld) 5 % 3 - 12 % [facility] Monocytes/100 WBC (Bld) 0.58 % [facility] Neutrophils/100 WBC (Bld) 62 % 36 - 65 % [facility] Nucleated RBC/100 WBC (Bld) [Ratio] 0.0 % 0.0 per 100 WBC [facility] Platelet mean volume (Bld) [Entitic vol] 10.3 fL 8.1 - 13.5 fL [facility] Platelets (Bld) [#/Vol] 360 10*3/uL [facility] RBC (Bld) [#/Vol] 5.23 10*6/uL High 3.95 - 5.1 1 m/uL [facility] Segmented neutrophils/100 WBC (Bld) 8.12 % High [facility] WBC other (Bld) [#/Vol] 12.8 High [facility] CBC with Diffon 10-20-2024 Abs. Basophil 0.07 k/uL Normal 0.00-0.20 [facility] Comment on above: Performed By: #### C DP LIP, CP ####[facility] [place] [address] lab Director: Murtaza Arceo MD Abs.Imm.Granulocyte 0.07 k/uL Normal 0.00-0.30 [facility] Comment on above: Performed By: #### C DP LIP, CP ####[facility] [place] [address] , [place] [address])[phone] Director: Murtaza Arceo MD Abs.Neutrophil (Seg) 8.12 k/uL High 1.50-8.10 [facility] Comment on above: Performed By: #### C DP, LIP, CP ####[address] , [place] [address])[phone] Director: Murtaza Arceo MD Basophils/100 WBC (Bld) 1 % Normal 0-2 [facility] Comment on above: Performed By: #### C DP, LIP, CP ####[address] , [place] [address])[phone] Director: Murtaza Arceo MD Eosinophils (Bld) [#/Vol] 0.15 10*3/uL Normal 0.00-0.44 [facility] Comment on above: Performed By: #### C DP, LIP, CP ####[address] , [place] [address])[phone] Director: Murtaza Arceo MD Eosinophils/100 WBC (Bld) 1 % Normal 1-4 [facility] Comment on above: Performed By: #### C DP LIP, CP ####[address] , [facility]83[facility])[phone] Director: Murtaza Arceo MD Erythrocyte distribution width (RBC) [Ratio] 13.9 % Normal 11.8-14.4 [facility] Comment on above: Performed By: #### C DP, LIP, CP ####[address] , [facility]83[facility])[phone] Director: Murtaza Arceo MD Hematocrit (Bld) [Volume fraction] 44.8 % Normal 36.3-47.1 [facility] Comment on above: Performed By: #### C DP, LIP, CP ####[address] , [facility]83[facility])[phone] Director: Murtaza Arceo MD Hemoglobin (Bld) [Mass/Vol] 15.2 g/dL High 11.9-15.1 [facility] Comment on above: Performed By: #### C CY ROBLEDO, CP ####[address] [place] [address] Lab Director: Murtaza Arceo MD Immature granulocytes/100 WBC (Bld) 1 % High 0 [facility] Comment on above: Performed By: #### C CY ROBLEDO, CP ####[address] [place] [address] Lab Director: Murtaza Arceo MD Lymphocytes (Bld) [#/Vol] 3.80 10*3/uL High 1.10-3.70 [facility] Comment on above: Performed By: #### C CY ROBLEDO, CP ####[address] , [facility]83[facility])[phone] Director: Murtaza Arceo MD Lymphocytes/100 WBC (Bld) 30 % Normal 24-43 [facility] Comment on above: Performed By: #### C YC ROBLEDO, CP ####[address] [place] [address] Lab Director: Murtaza Arceo MD MCH (RBC) [Entitic mass] 29.1 pg Normal 25.2-33.5 [facility] Comment on above: Performed By: #### C CY ROBLEDO, CP ####[address] [place] [address] Lab Director: Murtaza Arceo MD MCHC (RBC) [Mass/Vol] 33.9 g/dL Normal 28.4-34.8 [facility] Comment on above: Performed By: #### C CY ROBLEDO, CP ####[address] , [place] 43[address]83 Lab Director: Murtaza Arceo MD MCV (RBC) [Entitic vol] 85.7 fL Normal 82.6-102.9 [facility] Comment on above: Performed By: #### C VENKAT LIP, CP ####[address] [place] [address]([facility])[phone] Director: Murtaza Arceo MD Monocytes (Bld) [#/Vol] 0.58 10*3/uL Normal 0.10-1.20 [facility] Comment on above: Performed By: #### C DP LIP, CP ####[address] , [facility]83[facility])[phone] Director: Murtaza Arceo MD Monocytes/100 WBC (Bld) 5 % Normal 3-12 [facility] Comment on above: Performed By: #### C VENKAT LIP, CP ####[address] , [facility]83[facility])[phone] Director: Murtaza Arceo MD Neutrophil (Seg) 62 % Normal 36-65 [facility] Comment on above: Performed By: #### C CY ROBLEDO, CP ####[address] , [facility]83[facility])[phone] Director: Murtaza Arceo MD NRBC Automated 0.0 per 100 WBC Normal 0.0 [facility] Comment on above: Performed By: #### C VENKAT LIP, CP ####[address] , [facility]83[facility])[phone] Director: Murtaza Arceo MD Platelet mean volume (Bld) [Entitic vol] 10.3 fL Normal 8.1-13.5 [facility] Comment on above: Performed By: #### C DP LIP, CP ####[address] , [place] [id number] Lab Director: Murtaza Arceo MD Platelets (Bld) [#/Vol] 360 10*3/uL Normal 138-453 [facility] Comment on above: Performed By: #### C DP LIP, CP ####[address] [place] [address] Lab Director: Murtaza Arceo MD RBC (Bld) [#/Vol] 5.23 10*6/uL High 3.95-5.11 [facility] Comment on above: Performed By: #### C DP LIP, CP ####[address] , [place] 028[address]83 Lab Director: Murtaza Arceo MD WBC (Bld) [#/Vol] 12.8 10*3/uL High 3.5-11.3 [facility] Comment on above: Performed By: #### C VENKAT LIP, CP ####[address] , [facility]83 [facility] Director: Murtaza Arceo MD Comp Metabolic Profon 2024 Albumin [Mass/Vol] 4.5 g/dL Normal 3.5-5.2 [facility] Comment on above: Performed By: #### C VENKAT LIP, CP ####[address] [place] [address]([facility])[phone] Director: Murtaza Arceo MD Albumin/Glob Ratio 1.3 Normal 1.0-2.5 [facility] Comment on above: Performed By: #### C DP LIP, CP ####[address] [place] [address]([facility])[phone] Director: Murtaza Arceo MD Alkaline Phos 100 U/L Normal 35-104 [facility] Comment on above: Performed By: #### C VENKAT LIP, CP ####[address] , [place] 2910583 Lab Director: Murtaza Arceo MD ALT [Catalytic activity/Vol] 36 U/L High 10-35 [facility] Comment on above: Performed By: #### C DP LIP, CP ####[address] , [place] 6211583 Lab Director: Murtaza Arceo MD Anion gap [Moles/Vol] 16 mmol/L Normal 9-16 [facility] Comment on above: Performed By: #### C DP LIP, CP ####[address] , [place] 5296283 Lab Director: Murtaza Arceo MD AST [Catalytic activity/Vol] 50 U/L High 10-35 [facility] Comment on above: Result Comment: Spec imen hemolysis has exceeded the interference as defined by Sonal. Value may be falsely increased. Suggest recollection if clinically indicated. Performed By: #### C VENKAT LIP, CP ####[address] , [place] 0377383 Lab Director: Murtaza Arceo MD Bilirubin [Mass/Vol] 0.5 mg/dL Normal 0.00-1.20 [facility] Comment on above: Performed By: #### C CY ROBLEDO, CP ####[address] , [place] 5665783 Lab Director: Murtaza Arceo MD BUN/CRE Ratio 13 Normal 9-20 [facility] Comment on above: Performed By: #### C VENKAT LIP, CP ####[address] , [place] 1132183 Lab Director: Murtaza Arceo MD Calcium [Mass/Vol] 9.6 mg/dL Normal 8.6-10.4 [facility] Comment on above: Performed By: #### C VENKAT LIP, CP ####[address] , [place] 0916083 Lab Director: Murtaza Arceo MD Chloride [Moles/Vol] 102 mmol/L Normal 98-107 [facility] Comment on above: Performed By: #### C DP LIP, CP ####[address] [place] [address] Lab Director: Murtaza Arceo MD CO2 [Moles/Vol] 22 mmol/L Normal 20-31 [facility] Comment on above: Performed By: #### C CY ROBLEDO, CP ####[address] , [place] 3005683 Lab Director: Murtaza Arceo MD Creatinine [Mass/Vol] 0.8 mg/dL Normal 0.50-0.90 [facility] Comment on above: Performed By: #### C CY ROBLEDO, CP ####[address] , [place] 7035583 Lab Director: Murtaza Arceo MD GFR/1.73 sq M.predicted among non-blacks MDRD (S/P/Bld) [Vol rate/Area] mL/min/{1.73_m2} Normal >60 [facility] Comment on above: Result Comment: These [...] renal tubular secretion. Performed By: #### C CY ROBLEDO, CP ####[address] , [place] [id number] Lab Director: Murtaza Arceo MD Glucose [Mass/Vol] 208 mg/dL High 74-99 [facility] Comment on above: Performed By: #### C CY ROBLEDO, CP ####[address] [place] [address] Lab Director: Murtaza Arceo MD Potassium [Moles/Vol] 4.4 mmol/L Normal 3.7-5.3 [facility] Comment on above: Result Comment: Spec imen hemolysis has exceeded the interference as defined by Sonal. Value may be falsely increased. Suggest recollection if clinically indicated. Performed By: #### C DP LIP, CP ####[facility] [place] , [place] 6083183 Lab Director: Murtaza Arceo MD Protein [Mass/Vol] 7.9 g/dL Normal 6.6-8.7 [facility] Comment on above: Performed By: #### C DP LIP, CP ####[address] , [place] 4603283 Lab Director: Murtaza Arceo MD Sodium [Moles/Vol] 140 mmol/L Normal 136-145 [facility] Comment on above: Performed By: #### C CY ROBLEDO, CP ####[address] , [place] 5677583 Lab Director: Murtaza Arceo MD Urea nitrogen [Mass/Vol] 10 mg/dL Normal 6-20 [facility] Comment on above: Performed By: #### C VENKAT LIP, CP ####[address] , [place] 7305583 Lab Director: Murtaza Arceo MD [facility] Metabolic [facility] 10-20-2024 Albumin [Mass/Vol] 4.5 g/dL 3.5 - 5.2 g/dL [facility] Albumin/Globulin [Mass ratio] 1.3 {ratio} 1.0 - 2.5 [facility] ALP [Catalytic activity/Vol] 100 U/L 35 - 104 U/L [facility] ALT [Catalytic activity/Vol] 36 U/L High 10 - 35 U/L [facility] Anion gap [Moles/Vol] 16 mmol/L 9 - 16 mmol/L [facility] AST [Catalytic activity/Vol] 50 U/L High 10 - 35 U/L [facility] Comment on above: Specimen hemolysis h as exceeded the interference as defined by Sonal. Value may be falsely increased. Suggest recollection if clinically indicated. Bilirubin [Mass/Vol] 0.5 mg/dL 0.00 - 1.20 mg/dL [facility] Calcium [Mass/Vol] 9.6 mg/dL 8.6 - 10. 4 mg/dL [facility] Chloride [Moles/Vol] 102 mmol/L 98 - 10 7 mmol/L [facility] CO2 [Moles/Vol] 22 mmol/L 20 - 31 mmol/L [facility] Creatinine [Mass/Vol] 0.8 mg/dL 0.50 - 0.90 mg/dL [facility] EstAmarilis Rate - PINF [facility] Comment on above: These results are not [...] 208 mg/dL High 74 - 99 mg/dL [facility] Potassium [Moles/Vol] 4.4 mmol/L 3.7 - 5.3 mmol/L [facility] Comment on above: Specimen hemolysis h as exceeded the interference as defined by Sonal. Value may be falsely increased. Suggest recollection if clinically indicated. Protein [Mass/Vol] 7.9 g/dL 6.6 - 8.7 g/dL [facility] Sodium [Moles/Vol] 140 mmol/L 136 - 145 mmol/L [facility] Urea nitrogen [Mass/Vol] 10 mg/dL 6 - 20 mg/dL [facility] Urea nitrogen/Creatinine [Mass ratio] 13 mg/mg 9 - 20 [facility] Glucose, Whole Bloodon 10-20 Glucose [Mass/Vol] 137 mg/dL High 74 - 100 mg/dL [facility] Interpretation and review of laboratory results Abnormal [facility] Glucose [Mass/Vol] 137 mg/dL High 74-100 [facility] Glucose [Mass/Vol] 117 mg/dL High 74 - 100 mg/dL [facility] Interpretation and review of laboratory results Abnormal [facility] Glucose [Mass/Vol] 117 mg/dL High 74-100 [facility] Lactic Acidon 10-20-2024 Lactate (BldV) [Moles/Vol] 2.2 mmol/L 0.5 - 2.2 mmol/L [facility] Lactate [Moles/Vol] 2.2 mmol/L Normal 0.5-2.2 [facility] Comment on above: Performed By: #### L ACTIC ####[facility] [place], [place] [id number] lab Director: Murtaza Arceo MD Interpretation and review of laboratory results Abnormal [facility] Lactate (BldV) [Moles/Vol] 3.3 mmol/L High 0.5 - 2.2 mmol/L [facility] Lactate [Moles/Vol] 3.3 mmol/L High 0.5-2.2 [facility] Comment on above: Performed By: #### L ACTIC ####[facility] [place] [address] lab Director: Murtaza Arceo MD Lipaseon 10-20-2024 Lipase [Catalytic activity/Vol] 238 U/L High 13 - 60 U/L [facility] Lipase [Catalytic activity/Vol] 238 U/L High 13-60 [facility] Comment on above: Performed By: #### C DP, LIP, CP ####[facility] [place] [address] lab Director: Murtaza Arceo MD No Panel Informationon 10-20 Interpretation and review of laboratory results Abnormal [facility] Urinalysis w/ Microon 2024 Bilirubin, SemiQt,Ur Negative Normal NEG [facility] Comment on above: Performed By: #### U AMIC ####[facility] [place] [address] lab Director: Murtaza Arceo MD Blood, Urine Negative Normal NEG [facility] Comment on above: Performed By: #### U AMIC ####[address] , [place] [address] lab Director: Murtaza Arceo MD Clarity (U) Clear Normal CLEAR [facility] Comment on above: Performed By: #### U AMIC ####[address] , [place] [address] lab Director: Murtaza Arceo MD Color (U) Yellow Normal YEL [facility] Comment on above: Performed By: #### U AMIC ####[address] , [place] [address] lab Director: Murtaza Arceo MD Epithelial cells LM Ql (Urine sed) 0 TO 2 Normal 0-25 [facility] Comment on above: Performed By: #### U AMIC ####[address] , [place] [address] lab Director: Murtaza Arceo MD Glucose Ql (U) 3+ mg/dL Abnormal NEG [facility] Comment on above: Performed By: #### U AMIC ####[address] , [place] [address] lab Director: Murtaza Arceo MD Ketones Ql (U) Negative Normal NEG [facility] Comment on above: Performed By: #### U AMIC ####[address] , [place] [address] lab Director: Murtaza Arceo MD Leukocyte esterase Test strip Ql (U) Negative Normal NEG [facility] Comment on above: Performed By: #### U AMIC ####[address] , [place] [address] lab Director: Murtaza Arceo MD Nitrite,Ur Negative Normal NEG [facility] Comment on above: Performed By: #### U AMIC ####[address] [place] [address] Lab Director: Murtaza Arceo MD PH,Ur 6.0 Normal 5.0-9.0 [facility] Comment on above: Performed By: #### U AMIC ####[address] [place] [address] Lab Director: Murtaza Arceo MD Protein Ql (U) Negative Normal NEG [facility] Comment on above: Performed By: #### U AMIC ####[address] , [place] [address] lab Director: Murtaza Arceo MD Spec. Onyx,Ur 1.025 High 1.010-1.020 [facility] Comment on above: Performed By: #### U AMIC ####[address] [place] [address] lab Director: Murtaza Arceo MD Urine RBC's None Normal 0-2 [facility] Comment on above: Performed By: #### U AMIC ####[address] [place] [address] lab Director: Murtaza Arceo MD Urine WBC's 0 TO 2 Normal 0-5 [facility] Comment on above: Performed By: #### U AMIC ####[address] [place] [address] Lab Director: Murtaza Arceo MD Urobilinogen,Ur Normal Normal 0.0-1.0 [facility] Comment on above: Performed By: #### U AMIC ####[address] , [place] [address] lab Director: Murtaza Arceo MD Urinalysis with Microscopico n 10-20-2024 Bilirubin Ql (U) Negative NEGATIVE [facility] Clarity (U) Clear Clear [facility] Color (U) Yellow Yellow [facility] Epithelial cells LM.HPF (Urine sed) [#/Area] 0 TO [address] [facility] Glucose Test strip (U) [Mass/Vol] 3+ Abnormal NEGATIVE mg/dL [facility] Hemoglobin Auto test strip Ql (U) Negative NEGATIVE [facility] Interpretation and review of laboratory results Abnormal [facility] Ketones (U) [Mass/Vol] Negative NEGAT SIMA mg/dL [facility] Leukocyte esterase Test strip Ql (U) Negative NEGATIVE [facility] Nitrite Ql (U) Negative NEGATIVE [facility] pH (U) 6.0 [pH] 5.0 - 9.0 [facility] Protein (U) [Mass/Vol] Negative NEGAT SIMA mg/dL [facility] RBC LM.HPF (Urine sed) [#/Area] None [facility] Specific gravity (U) [Rel density] 1.025 High 1.010 - 1.020 [facility] Urobilinogen Qn (U) Normal 0.0 - 1. 0 EU/dL [facility] WBC LM.HPF (Urine sed) [#/Area] 0 TO 2 [facility] ED NOTEon 10-17-2024 ED NOTE HNO ID: [id number] Author: HENRRY GAMINO, NU Service: Emergency Medicine Author Type: Registered Nurse Type: ED Notes Filed: 10/17/2024 14:16 Note Text: Pt dc by this nurse. Dc instructions reviewed and pt demonstrated understanding. VS stable. Ambulatory. Normal [facility] ED NOTE HNO ID: [id number] Author: HENRRY GAMINO, NU Service: Emergency Medicine Author Type: Registered Nurse Type: ED Notes Filed: 10/17/2024 13:37 Note Text: Pt able to eat cracker without vomiting. Normal [facility] ED PROV NOTEon 10-17-2024 ED PROV NOTE HNO ID: [id number] Author: JON BARRIOS MD Service: Emergency Medicine Author Type: Physician Type: ED Provider Notes Filed: 10/18/2024 16:40 Note Text: ED Provider Note Patient Name: Gael Ruby : 1995 SERVICE DATE: 10/16/24 History Patient presents with: Nausea AND Vomiting: Pt states she has been having n/v for a couple days. She was told she has gastroparesis and says she has been to the hospital over 100 times last year and multiple times this year and they told her to come to [place]. 29-year-old female with past medical history of [...] At her most recent ED visit at [facility], told to come to clinic clinic if [...] (ANC) 9.56(!) Lymph% 28.5 Abs Lymph 4.13(!) Webster% 4.0 Abs Webster 0.58 Eosin% 0.8 Abs Eosin 0.12 Baso% 0.4 Abs Baso 0.06 Immature Gran % 0.3 IMMATURE GRANS (ABS) 0.04 NRBC 0.0 Absolute nRBC <0.01 Red Cell Morph Reviewed: unremarkable DTYPE Auto Leukocytosis, no new anemia 1105 Lipase: Lipase 56 No concern for pancreatitis 1105 Magnesium: Magnesium 1.9 Mag wnl 1105 Comprehensive Metabolic Panel(!): Protein, Total 7.5 Albumin 4 (more content not included)... Normal [facility] HCG Preg Ur Qlon 10-17-2024 HCG ( test) Ql (U) Negative Normal Negative [facility] Comment on above: Order Comment: Speci men Type: URINE SPECIMENOrdering Facility: [facility] Address: [address] [place] [address] Result Comment: This test is intended to aid in the early detection of . Very dilute urine samples, as indicated by a low specific gravity, may not contain sales promotion representative levels of hCG. This test detects [...] for . Performed By: #### 2 106-3 ####[facility] LABCLIA [id number] [facility] [place] [id number] [place] Urinalysis complete panel (U )on 10-17-2024 Bacteria LM.HPF (Urine sed) [#/Area] Negative Normal Negative [facility] Comment on above: Order Comment: Speci men Type: URINE SPECIMENOrdering Facility: [facility] Address: [address] [place] [address] Performed By: #### 2 4356-8 ####[facility] LABCLIA [id number] [place] [id number] [place] Bilirubin Ql (U) Negative Normal Negative [facility] Comment on above: Order Comment: Speci men Type: URINE SPECIMENOrdering Facility: [facility] Address: [address] [place] [address] Performed By: #### 2 4356-8 ####[facility] LABCLIA [id number] [place] [address] [place] Clarity (Unsp spec) Clear Normal Clear [facility] Comment on above: Order Comment: Speci men Type: URINE SPECIMENOrdering Facility: [facility] Address: [address] [place] [address] Performed By: #### 2 4356-8 ####[facility] LABCLIA [id number] [place] [address] [place] Color (U) Yellow Normal Yellow [facility] Comment on above: Order Comment: Speci men Type: URINE SPECIMENOrdering Facility: [facility] Address: [address] [place] [address] Performed By: #### 2 4356-8 ####[facility] LABCLIA [id number] [place] [address] [place] Epithelial cells LM.HPF (Urine sed) [#/Area] None Seen Normal [facility] Comment on above: Order Comment: Speci men Type: URINE SPECIMENOrdering Facility: [facility] Address: [address] [place] [address] Performed By: #### 2 4356-8 ####[facility] LABIA [id number] [place] [address] [place] Glucose Test strip (U) [Mass/Vol] Negative Normal Negative [facility] Comment on above: Order Comment: Speci men Type: URINE SPECIMENOrdering Facility: [facility] Address: [address] [place], [place] [address] Performed By: #### 2 4356-8 ####[facility] LABCLIA [id number] [place] [address] [place] Hemoglobin Ql (U) Negative Normal Negative [facility] Comment on above: Order Comment: Speci men Type: URINE SPECIMENOrdering Facility: [facility] Address: [address] [place] [address] Performed By: #### 2 4356-8 ####[facility] LABCLIA [id number] [place] [address] [place] Hyaline casts (Urine sed) [#/Area] 0 /[LPF] Normal 0 /LPF [facility] Comment on above: Order Comment: Speci men Type: URINE SPECIMENOrdering Facility: [facility] Address: [address] [place] [address] Performed By: #### 2 4356-8 ####[facility] LABCLIA [id number] [place] [address] [place] Ketones Ql (U) 1+ Abnormal Negative [facility] Comment on above: Order Comment: Speci men Type: URINE SPECIMENOrdering Facility: [facility] Address: [address] [place] [address] Performed By: #### 2 4356-8 ####[facility] LABCLIA [id number] [place] [address] [place] Leukocyte esterase Test strip Ql (U) Negative Normal Negative [facility] Comment on above: Order Comment: Speci men Type: URINE SPECIMENOrdering Facility: [facility] Address: [address] [place] [address] Performed By: #### 2 4356-8 ####[facility] LABCLIA [id number] [place] [address] [place] Nitrite Ql (U) Negative Normal Negative [facility] Comment on above: Order Comment: Speci men Type: URINE SPECIMENOrdering Facility: [facility] Address: [address] [place] [address] Performed By: #### 2 4356-8 ####[facility] LABCLIA [id number] [place] [address] [place] pH (U) 6.5 [pH] Normal <8.5 [facility] Comment on above: Order Comment: Speci men Type: URINE SPECIMENOrdering Facility: [facility] Address: [address] [place] [address] Performed By: #### 2 4356-8 ####[facility] LABIA [id number] [place] [address] [place] Protein (U) [Mass/Vol] Negative Normal Negative Cl [facility] Comment on above: Order Comment: Speci men Type: URINE SPECIMENOrdering Facility: [facility] Address: [address] [place] [address] Performed By: #### 2 4356-8 ####[facility] LABIA [id number] [place] [address] [place] RBC LM.HPF (Urine sed) [#/Area] 0-2 /HPF Normal 0-2 /HPF [facility] Comment on above: Order Comment: Speci men Type: URINE SPECIMENOrdering Facility: [facility] Address: [address] [place] [address] Performed By: #### 2 4356-8 ####[facility] LABCLIA [id number] [place] [address] [place] Specific gravity (U) [Rel density] 1.011 Normal 1.005-1.030 [facility] Comment on above: Order Comment: Speci men Type: URINE SPECIMENOrdering Facility: [facility] Address: [address] [place] [address] Performed By: #### 2 4356-8 ####[facility] LABCLIA [id number] [place] [address] [place] Urobilinogen Ql (U) 0.2 EU/dL Normal 0.2-1.0 EU/dL [facility] Comment on above: Order Comment: Speci men Type: URINE SPECIMENOrdering Facility: [facility] Address: [address] [place] [address] Performed By: #### 2 4356-8 ####[facility] LABCLIA [id number] [place] [address] [place] WBC LM.HPF (Urine sed) [#/Area] 0-5 /HPF Normal 0-5 /HPF [facility] Comment on above: Order Comment: Speci men Type: URINE SPECIMENOrdering Facility: [facility] Address: [address] [place] [address] Performed By: #### 2 4356-8 ####[facility] LABCLIA [id number] [place] [address] [place] CBC W Auto Differential pane l (Bld)on 10-16-2024 Basophils (Bld) [#/Vol] 0.06 10*3/uL Normal <0.11 [facility] Comment on above: Order Comment: Speci men Type: BLOOD SPECIMENOrdering Facility: [facility] Address: [address] [place] [address] Performed By: #### 5 7021-8 ####[facility] LABCLIA [id number] [place] [address] [place] Basophils/100 WBC (Bld) 0.4 % Normal [facility] Comment on above: Order Comment: Speci men Type: BLOOD SPECIMENOrdering Facility: [facility] Address: [address] [place] [address] Performed By: #### 5 7021-8 ####[facility] LABCLIA [id number] [place] [address] [place] Differential cell count method Nom (Bld) Auto Normal [facility] Comment on above: Order Comment: Speci men Type: BLOOD SPECIMENOrdering Facility: [facility] Address: [address] [place] [address] Performed By: #### 5 7021-8 ####[facility] LABCLIA [id number] [place] [address] [place] Eosinophils (Bld) [#/Vol] 0.12 10*3/uL Normal <0.46 [facility] Comment on above: Order Comment: Speci men Type: BLOOD SPECIMENOrdering Facility: [facility] Address: [address] [place] [address] Performed By: #### 5 7021-8 ####[facility] LABIA [id number] [place] [address] [place] Eosinophils/100 WBC (Bld) 0.8 % Normal [facility] Comment on above: Order Comment: Speci men Type: BLOOD SPECIMENOrdering Facility: [facility] Address: [address] [place] [address] Performed By: #### 5 7021-8 ####[facility] LABIA [id number] [place] [address] [place] Erythrocyte distribution width (RBC) [Ratio] 13.6 % Normal 11.5-15.0 [facility] Comment on above: Order Comment: Speci men Type: BLOOD SPECIMENOrdering Facility: [facility] Address: [address] [place] [address] Performed By: #### 5 7021-8 ####[facility] LABIA [id number] [place] [address] [place] Hematocrit (Bld) [Volume fraction] 45.4 % Normal 36.0-46.0 [facility] Comment on above: Order Comment: Speci men Type: BLOOD SPECIMENOrdering Facility: [facility] Address: [address] [place] [address] Performed By: #### 5 7021-8 ####[facility] LABCLIA [id number] [place] [address] [place] Hemoglobin (Bld) [Mass/Vol] 15.0 g/dL Normal 11.5-15.5 [facility] Comment on above: Order Comment: Speci men Type: BLOOD SPECIMENOrdering Facility: [facility] Address: [address] [place] [address] Performed By: #### 5 7021-8 ####[facility] LABCLIA [id number] [place] [address] [place] Immature granulocytes (Bld) [#/Vol] 0.04 10*3/uL Normal <0.10 [facility] Comment on above: Order Comment: Speci men Type: BLOOD SPECIMENOrdering Facility: [facility] Address: [address] [place] [address] Performed By: #### 5 7021-8 ####[facility] LABIA [id number] [place] [address] [place] Immature granulocytes/100 WBC (Bld) 0.3 % Normal [facility] Comment on above: Order Comment: Speci men Type: BLOOD SPECIMENOrdering Facility: [facility] Address: [address] [place] [address] Performed By: #### 5 7021-8 ####[facility] LABIA [id number] [place] [address] [place] Lymphocytes (Bld) [#/Vol] 4.13 10*3/uL High 1.00-4.00 [facility] Comment on above: Order Comment: Speci men Type: BLOOD SPECIMENOrdering Facility: [facility] Address: [address] [place] [address] Performed By: #### 5 7021-8 ####[facility] LABIA [id number] [place] [address] [place] Lymphocytes/100 WBC (Bld) 28.5 % Normal [facility] Comment on above: Order Comment: Speci men Type: BLOOD SPECIMENOrdering Facility: [facility] Address: [address] [place] [address] Performed By: #### 5 7021-8 ####[facility] [id number] [place] [address] [place] MCH (RBC) [Entitic mass] 28.6 pg Normal 26.0-34.0 [facility] Comment on above: Order Comment: Speci men Type: BLOOD SPECIMENOrdering Facility: [facility] Address: [address] [place] [address] Performed By: #### 5 7021-8 ####[facility] [id number] [place] [address] [place] MCHC (RBC) [Mass/Vol] 33.0 g/dL Normal 30.5-36.0 [facility] Comment on above: Order Comment: Speci men Type: BLOOD SPECIMENOrdering Facility: [facility] Address: [address] [place] [address] Performed By: #### 5 7021-8 ####[facility] [id number] [place] [address] [place] MCV (RBC) [Entitic vol] 86.5 fL Normal 80.0-100.0 [facility] Comment on above: Order Comment: Speci men Type: BLOOD SPECIMENOrdering Facility: [facility] Address: [address] [place] [address] Performed By: #### 5 7021-8 ####[facility] [id number] [place] [address] [place] Monocytes (Bld) [#/Vol] 0.58 10*3/uL Normal <0.87 [facility] Comment on above: Order Comment: Speci men Type: BLOOD SPECIMENOrdering Facility: [facility] Address: [address] [place] [address] Performed By: #### 5 7021-8 ####[facility] LABCLIA [id number] [place] [address] [place] Monocytes/100 WBC (Bld) 4.0 % Normal [facility] Comment on above: Order Comment: Speci men Type: BLOOD SPECIMENOrdering Facility: [facility] Address: [address] [place] [address] Performed By: #### 5 7021-8 ####[facility] LABIA [id number] [place] [address] [place] Neutrophils (Bld) [#/Vol] 9.56 10*3/uL High 1.45-7.50 [facility] Comment on above: Order Comment: Speci men Type: BLOOD SPECIMENOrdering Facility: [facility] Address: [address] [place] [address] Performed By: #### 5 7021-8 ####[facility] LABIA [id number] [place] [address] [place] Neutrophils/100 WBC (Bld) 66.0 % Normal [facility] Comment on above: Order Comment: Speci men Type: BLOOD SPECIMENOrdering Facility: [facility] Address: [address] [place] [address] Result Comment: Diff erential confirmed by visual scan of peripheral blood smear slide. Performed By: #### 5 7021-8 ####[facility] LABIA [id number] [place] [address] [place] Nucleated RBC (Bld) [#/Vol] 10*3/uL Normal <0.01 [facility] Comment on above: Order Comment: Speci men Type: BLOOD SPECIMENOrdering Facility: [facility] Address: [address] [place] [address] Performed By: #### 5 7021-8 ####[facility] LABCLIA [id number] [place] [address] [place] Nucleated RBC/100 WBC (Bld) [Ratio] 0.0 /100 WBC Normal [facility] Comment on above: Order Comment: Speci men Type: BLOOD SPECIMENOrdering Facility: [facility] Address: [address] [place] [address] Performed By: #### 5 7021-8 ####[facility] LABIA [id number] [place] [address] [place] Platelet mean volume (Bld) [Entitic vol] 10.0 fL Normal 9.0-12.7 [facility] Comment on above: Order Comment: Speci men Type: BLOOD SPECIMENOrdering Facility: [facility] Address: [address] [place] [address] Performed By: #### 5 7021-8 ####[facility] LABCLIA [id number] [place] [address] [place] Platelets (Bld) [#/Vol] 331 10*3/uL Normal 150-400 [facility] Comment on above: Order Comment: Speci men Type: BLOOD SPECIMENOrdering Facility: [facility] Address: [address] [place] [address] Performed By: #### 5 7021-8 ####[facility] LABIA [id number] [place] [address] [place] RBC (Bld) [#/Vol] 5.25 10*6/uL High 3.90-5.20 [facility] Comment on above: Order Comment: Speci men Type: BLOOD SPECIMENOrdering Facility: [facility] Address: [address] [place] [address] Performed By: #### 5 7021-8 ####[facility] LABCLIA [id number] [place] [address] [place] RED CELL MORPH Reviewed: unremarkable Normal [facility] Comment on above: Order Comment: Speci men Type: BLOOD SPECIMENOrdering Facility: [facility] Address: [address] [place], [place] [address] Performed By: #### 5 7021-8 ####[facility] LABCLIA [id number] [address] [address] [place] WBC (Bld) [#/Vol] 14.49 10*3/uL High 3.70-11.00 [facility] Comment on above: Order Comment: Speci men Type: BLOOD SPECIMENOrdering Facility: [facility] Address: [address] [place] [address] Performed By: #### 5 7021-8 ####[facility] LABCLIA [id number] [address] [address] [place] Comprehensive metabolic 2000 panelon 10-16-2024 Albumin [Mass/Vol] 4.4 g/dL Normal 3.9-4.9 [facility] Comment on above: Order Comment: Speci men Type: BLOOD SPECIMENOrdering Facility: [facility] Address: [address] [place] [address] Performed By: #### 2 4323-8, 69340-4, 0-3 ####[facility] LABCLIA [id number] [place] [id number] [place] ALP [Catalytic activity/Vol] 95 U/L Normal 34-123 [facility] Comment on above: Order Comment: Speci men Type: BLOOD SPECIMENOrdering Facility: [facility] Address: [address] [place], [place] [address] Performed By: #### 2 4323-8, 51106-1, 3040-3 ####[facility] LABCLIA [id number] [place] [id number] [place] ALT [Catalytic activity/Vol] 36 U/L Normal 7-38 [facility] Comment on above: Order Comment: Speci men Type: BLOOD SPECIMENOrdering Facility: [facility] Address: [address] [place], [place] [address] Performed By: #### 2 4323-8, 58613-1, 0-3 ####[facility] LABCLIA [id number] [address] [address] [place] Anion gap [Moles/Vol] 12 mmol/L Normal 8-15 [facility] Comment on above: Order Comment: Speci men Type: BLOOD SPECIMENOrdering Facility: [facility] Address: [address] [place], [place] [address] Performed By: #### 2 4323-8, , 0-3 ####[facility] LABIA [id number] [place] [address] [place] AST [Catalytic activity/Vol] 31 U/L Normal 13-35 [facility] Comment on above: Order Comment: Speci men Type: BLOOD SPECIMENOrdering Facility: [facility] Address: [address] [place], [place] [address] Performed By: #### 2 4323-8, , 3039-3 ####[facility] LABIA [id number] [place] [id number] [place] Bilirubin [Mass/Vol] 0.5 mg/dL Normal 0.2-1.3 [facility] Comment on above: Order Comment: Speci men Type: BLOOD SPECIMENOrdering Facility: [facility] Address: [address] [place] [address] Performed By: #### 2 4323-8, , 3039-3 ####[facility] LABIA [id number] [address] [address] [place] Calcium [Mass/Vol] 9.7 mg/dL Normal 8.5-10.2 [facility] Comment on above: Order Comment: Speci men Type: BLOOD SPECIMENOrdering Facility: [facility] Address: [address] [place] [address] Performed By: #### 2 4323-8, , 3 ####[facility] LABIA [id number] [address] [address] [place] Chloride [Moles/Vol] 103 mmol/L Normal 98-107 [facility] Comment on above: Order Comment: Speci men Type: BLOOD SPECIMENOrdering Facility: [facility] Address: [address] [place] [address] Performed By: #### 2 4323-8, , 3 ####[facility] LABIA [id number] [address] [address] [place] CO2 [Moles/Vol] 25 mmol/L Normal 22-30 [facility] Comment on above: Order Comment: Speci men Type: BLOOD SPECIMENOrdering Facility: [facility] Address: [address] [place] [address] Performed By: #### 2 4323-8, , 3 ####[facility] LABIA [id number] [address] [address] [place] Creatinine [Mass/Vol] 0.67 mg/dL Normal 0.58-0.96 [facility] Comment on above: Order Comment: Speci men Type: BLOOD SPECIMENOrdering Facility: [facility] Address: [address] [place] [address] Performed By: #### 2 4323-8, , 3 ####[facility] [id number] [address] [address] [place] Creatinine and Glomerular filtration rate.predicted panel (S/P/Bld) 121 mL/min/1.73m??? Normal >=60 [facility] Comment on above: Order Comment: Speci men Type: BLOOD SPECIMENOrdering Facility: [facility] Address: [address] [place] [address] Result Comment: Leni mated Glomerular Filtration Rate [...] actual GFR. Performed By: #### 2 4323-8, , 3039-3 ####[facility] LABCLIA [id number] [address] [address] [place] Glucose [Mass/Vol] 152 mg/dL High 74-99 [facility] Comment on above: Order Comment: Speci men Type: BLOOD SPECIMENOrdering Facility: [facility] Address: [address] [place] [address] Result Comment: The [employer] Diabetes Association (ADA) provides guidance for cutoff [...] Standards of Medical Care in Diabetes 2016, [employer] Diabetes Association. Diabetes Care. 2016.39(Suppl 1). Performed By: #### 2 4323-8, , 3 ####[facility] LABCLIA [id number] [address] [address] [place] Potassium [Moles/Vol] 4.1 mmol/L Normal 3.7-5.1 [facility] Comment on above: Order Comment: Anoopi men Type: BLOOD SPECIMENOrdering Facility: [facility] Address: [address] [place] [address] Performed By: #### 2 4323-8, , 3039-3 ####[facility] LABCLIA [id number] [place] [id number] [place] Protein [Mass/Vol] 7.5 g/dL Normal 6.3-8.0 [facility] Comment on above: Order Comment: Speci men Type: BLOOD SPECIMENOrdering Facility: [facility] Address: [address] [place], [place] [address] Performed By: #### 2 4323-8, 47945-4, 0-3 ####[facility] LABCLIA [id number] [place] [id number] [place] Sodium [Moles/Vol] 140 mmol/L Normal 136-144 [facility] Comment on above: Order Comment: Speci men Type: BLOOD SPECIMENOrdering Facility: [facility] Address: [address] [place] [address] Performed By: #### 2 4323-8, 52190-5, 0-3 ####[facility] LABCLIA [id number] [place] [address] [place] Urea nitrogen [Mass/Vol] 11 mg/dL Normal 7-21 [facility] Comment on above: Order Comment: Speci men Type: BLOOD SPECIMENOrdering Facility: [facility] Address: [address] [place] [address] Performed By: #### 2 4323-8, 85549-5, 0-3 ####[facility] LABCLIA [id number] [place] [id number] [place] ED Triage Noteon 10-16-2024 ED Triage Note HNO ID: [id number] Author: MYA BURDICK MD Service: Critical Care [...] Lipase Magnesium SIGNATURE: Mya Burdick MD Normal [facility] Lipase SerPl-cCncon 10-16-19 25 Lipase [Catalytic activity/Vol] 56 U/L Normal 16-61 [facility] Comment on above: Order Comment: Speci men Type: BLOOD SPECIMENOrdering Facility: [facility] Address: [address] [place] [address] Performed By: #### 2 4323-8, 38098-0, 3040-3 ####[facility] LABCLIA [id number] [address] [facility] Magnesium SerPl-mCncon 10-16 Magnesium [Mass/Vol] 1.9 mg/dL Normal 1.7-2.3 [facility] Comment on above: Order Comment: Speci men Type: BLOOD SPECIMENOrdering Facility: [facility] Address: [address] [place] [address] Performed By: #### 2 4323-8, 81560-2, 3040-3 ####[facility] LABCLIA [id number] [place] [id number] [place] ED Clinical Summaryon 2024 ED Clinical Summary ED Clinical Summary [place] [id number] ED Clinical Summary Person Information Name: GAEL RUBY/[facility] Age: 29 Years : 1995 Sex: Female Language: [place] PCP: YOSSI GOLDEN MD Marital Status: Visit [...] 10/15/2024 19:23:05 10/15/2024 19:23:05 10/15/2024 19:23:05 ADDRESS: [address] [place] [phone] PHYS DOC NOTES: MEDICAL INFORMATION: Prescriptions Given: [...] Follow up: With: Address: When: YOSSI GOLDEN [address] [place] [phone] [employer] (1) In 3 days 10/18/2024 Comments: Call [...] or worsening symptoms. DIAGNOSIS: Abdominal pain Normal [facility] ED Note-Nursingon 10-15-2024 ED Note-Nursing ED Note-Nursing Pt home with Normal [facility] ED Note-Physicianon 10-15-19 ED Note-Physician ED Note-Physician Basic Information Time Seen: Cameron Conklin DO 10/15/2024 18:05 Chief Complaint patient presents with [...] they may want to proceed to the [facility] next time she has a flare where she has been referred by GI. They are pleased with this as they are frustrated that they continue to be sent to the emergency department here at [facility] and we are not providing any solutions [...] mg/mL injectable solution, 0.5 mg, IV Push [id number] [F] 12.5 mg + Sodium Chloride 0.9% IV Deniz 50 mL [F] 50 mL, IV Piggyback Disposition Plan Patient Discharge Condition Stable Discharge Disposition Home Discharge Prescription List Prescriptions No active prescription medications Follow-up With When Contact Information YOSSI GOLDEN In 3 days 10/18/2024 EST [address] (more content not included)... Normal [facility] Comment on above: Result Comment: Elec tronically Signed By: Cameron Conklin DO\.br\Date and Time Signed: 10/15/24 19:41 EST ED Patient Summaryon 025 ED Patient Summary ED Patient Summary [address] [address] Patient Discharge Instructions Person Information Name: GAEL RUBY Age: 29 Years Arrival Date: 10/15/2024 17:56:36 Discharge Diagnosis: Abdominal pain Primary Care Physician: YOSSI GOLDEN MD Provider Information Primary Provider: Cameron Conklin DO Advanced Hydrostatic Tubing Tester:None The exam and treatment you received in the Emergency Department were for an urgent problem and are not intended as complete care. It is important that you follow up with a doctor, nurse practitioner, or physician???s occupational therapist's assistant for ongoing care. If your symptoms [...] With: Address: When: YOSSI [address] [place], [place] [phone] Business (1) In 3 days 10/18/2024 Comments: [...] opioids can be used to help relieve xwrhfuzo-ak-mfsyxd pain and are often prescribed following a [...] manage yo (more content not included)... Normal [facility] Ambulatory Visit Summaryon 0 10-13-2024 Ambulatory Visit [...] and vomitin (more content not included)... Normal [facility] Gastroenterology Office/Clin ic Noteon 10-13-2024 Gastroenterology Office/Clinic Note Gastroenterology Office/Clinic Note Chief Complaint Abdominal pain, constiaption, nausea and vomiting. HPI Staff Established patient is a(n) 29 year old female who presents today for a f/u from [facility] ER 10/06/24 for epigastric pain, nausea/vomiting and gastroparesis. 3 ED visits (09/30/24, 10/04/24, 10/08/24) all c/o abdominal pain, n/v and gastroparesis. Upper abdominal pain started 09/29/24. Tried Reglan and GI cocktail at home with minimal relief. Was given GI cocktail in ED 10/08/24 - noted improvement. Was given Percocet, prochlorperazine and Zofran at D/C. Was referred to [facility] bariatric surgery and Gastroenterology 09/15/24. Scheduled? Appt [...] in the past for bariatric surgery in [place] We also discussed G POEM Will refer her to Dr. Gastelum at [facility] for G point evaluation also to bariatric surgery at [facility] per her request 2. Chronic constipation (K59.09: [...] 85 fL (10/08/24) Chloride: 104 mmol/L (10/08/24) Webster Absolute: 0.5 E9/L (10/08/24) CO2: 23 mmol/L (10/08/24) Webster Auto: 3.6 % Low (10/08/24) Creatinine: 0.7 [...] MUCOSA COMPATIBL (more content not included)... Normal [facility] Comment on above: Result Comment: Elec tronically Signed By: Aly Beverly MD\.br\Date and Time Signed: 10/13/24 14:22 EST\.br\Electronically Co-Signed [...] Locations R1: This test was performed at: [facility], [address] [place] [address], [address] , [place], Normal [facility] Comment on above: Performed By: #### 2 [id number] #### [facility] [address] [place] [address] B hCG Qualon 10-08-2024 Beta HCG ( test) Ql Negative Normal [facility] Comment on above: Performed By: #### 2 [id number] #### [facility] [address] [place] [address] BMPon 10-08-2024 Anion gap [Moles/Vol] 14 mmol/L Normal 6-16 [facility] Comment on above: Performed By: #### 2 599490 #### [facility] [address] [place] [address] Calcium [Mass/Vol] 9.6 mg/dL Normal 8.9-11.1 [facility] Comment on above: Performed By: #### 2 746313 #### [facility] [address] [place] [address] Chloride [Moles/Vol] 104 mmol/L Normal 101-111 [facility] Comment on above: Performed By: #### 2 486541 #### [facility] [address] [place] [address] CO2 [Moles/Vol] 23 mmol/L Normal 21-31 [facility] Comment on above: Performed By: #### 2 266517 #### [facility] [address] [place] [address] Creatinine [Mass/Vol] 0.7 mg/dL Normal 0.5-1.3 [facility] Comment on above: Performed By: #### 2 772576 #### [facility] [address] [place] [address] Glucose [Mass/Vol] 136 mg/dL Normal 55-199 [facility] Comment on above: Performed By: #### 2 800320 #### [facility] [address] [place] [address] Potassium [Moles/Vol] 4.6 mmol/L Normal 3.5-5.3 [facility] Comment on above: Performed By: #### 2 604385 #### [facility] [address] [place] [address] Sodium [Moles/Vol] 136 mmol/L Normal 135-145 [facility] Comment on above: Performed By: #### 2 909756 #### [facility] [address] [place] [address] Urea nitrogen [Mass/Vol] 10 mg/dL Normal 5-21 [facility] Comment on above: Performed By: #### 2 515567 #### [facility] [address] [place] [address] Urea nitrogen/Creatinine [Mass ratio] 14 No Units Normal 10-20 [facility] Comment on above: Performed By: #### 2 648102 #### [facility] [address] [place] [address] CBC w/ Auto Diffon 5 Basophils/100 WBC (Bld) 0.4 % Normal 0.0-2.0 [facility] Comment on above: Performed By: #### 2 454930 #### [facility] [address] [place] [address] Basophils/Leukocytes Auto (Bld) [Pure # fraction] 0.1 E9/L Normal 0.0-0.2 [facility] Comment on above: Performed By: #### 2 451407 #### [facility] [address] [place] [address] Eosinophils (Bld) [#/Vol] 0.2 E9/L Normal 0.0-0.5 [facility] Comment on above: Performed By: #### 2 046344 #### [facility] [address] [place] [address] [place] [address] Eosinophils/100 WBC (Bld) 1.4 % Normal 0.0-8.0 [facility] Comment on above: Performed By: #### 2 202404 #### [facility] [address] [place] [address] Erythrocyte distribution width (RBC) [Ratio] 14.8 % High 10.9-14.2 [facility] Comment on above: Performed By: #### 2 046788 #### [facility] [address] [place] [address] Hematocrit (Bld) [Volume fraction] 44.2 % Normal 34.0-46.0 [facility] Comment on above: Performed By: #### 2 078318 #### [facility] [address] [place] [address] Hemoglobin (Bld) [Mass/Vol] 15.4 g/dL Normal 12.0-16.0 [facility] Comment on above: Performed By: #### 2 026095 #### [facility] [address] [place] [address] Lymphocytes (Bld) [#/Vol] 4.9 E9/L High 1.0-4.0 [facility] Comment on above: Performed By: #### 2 748263 #### [facility] [address] [place] [address] Lymphocytes/100 WBC (Bld) 36.5 % Normal 14.0-50.0 [facility] Comment on above: Performed By: #### 2 539120 #### [facility] [address] [place] [address] MCH (RBC) [Entitic mass] 29.5 pg Normal 27.0-34.0 [facility] Comment on above: Performed By: #### 2 574923 #### [facility] [address] [place] [address] MCHC (RBC) [Mass/Vol] 34.8 g/dL Normal 31.4-36.0 [facility] Comment on above: Performed By: #### 2 696649 #### [facility] [address] [place] [address] MCV (RBC) [Entitic vol] 85.0 fL Normal 80.0-100.0 [facility] Comment on above: Performed By: #### 2 277325 #### [facility] [address] [place] [address] Monocytes (Bld) [#/Vol] 0.5 E9/L Normal 0.2-1.0 [facility] Comment on above: Performed By: #### 2 560270 #### [facility] [address] [place] [address] Neutrophils (Bld) [#/Vol] 7.8 E9/L High 2.0-7.5 [facility] Comment on above: Performed By: #### 2 569129 #### [facility] [address] [place] [address] Neutrophils/100 WBC (Bld) 58.1 % Normal 36.0-75.0 [facility] Comment on above: Performed By: #### 2 803020 #### [facility] [address] [place] [address] Platelet 330.0 E9/L Normal 150.0-500.0 [facility] Comment on above: Performed By: #### 2 795905 #### [facility] [address] [place] [address] Platelet mean volume (Bld) [Entitic vol] 8.7 fL Normal 6.4-10.8 [facility] Comment on above: Performed By: #### 2 057047 #### [facility] [address] [place] [address] RBC (Bld) [#/Vol] 5.2 E12/L Normal 4.3-5.9 [facility] Comment on above: Performed By: #### 2 911270 #### [facility] [address] [place] [address] WBC corrected for nucl RBC Auto (Bld) [#/Vol] 13.5 E9/L High 4.0-11.0 [facility] Comment on above: Performed By: #### 2 206219 #### [facility] [address] [place] [address] CHEMISTRYOrdered By: SYSTEM SYSTEM on 10-08-2024 Albumin [...] 2024 ED Clinical Summary ED Clinical Summary [place] [address] ED Clinical Summary Person Information Name: GAEL RUBY Josep/[facility] Age: 29 Years : 1995 Sex: Female Language: [place] PCP: YOSSI GOLDEN MD Marital Status: Visit [...] 10/08/2024 22:06:05 10/08/2024 22:06:05 10/08/2024 22:06:05 ADDRESS: [address] [place] [phone] PHYS DOC NOTES: MEDICAL INFORMATION: Prescriptions Given: New Medications [facility] [id number] [place] [phone], [phone] famotidine (famotidine 20 mg Tab) 1 Tablets By Mouth 2 times a day for 14 Days. Refills: 0. Medications to Continue Taking That Have Changed [facility] [id number], [address] [place] [phone], [phone] START: dicyclomine (Bentyl 10 mg Cap) 1 [...] Gastroparesis Follow up: With: Address: When: Aly Rizzo [facility], [address], [address] (more content not included)... Normal [facility] ED Note-Physicianon 10-08-19 ED Note-Physician ED Note-Physician [...] awaiting possible colonoscopy and second opinion with [facility] at this time. Review of Systems No [...] awaiting possible colonoscopy and second opinion with [facility] at this time. On exam the patient [...] Deniz 50 mL [F] 50 mL + [id number] [F] 25 mg, IV Piggyback Disposition Plan Discharge Prescription List Prescriptions Bentyl 10 mg Cap, 10 mg= 1 cap(s), Oral, QID famotidine 20 mg Tab, 20 mg= 1 tab(s), Oral, BID Reglan 10 mg Tab, See Instructions Follow-up With When Contact Information Aly Beverly In 3 days 10/11/2024 EST [address], [address] [phone] Business (1) Additional Instructions: YOSSI GOLDEN In 3 days [address] [place] [address] Business (1) Additional Instructions: Patient Education Gastroparesis Attestation Patient seen (more content not included)... Normal [facility] Comment on above: Result Comment: Elec tronically Signed By: Artem Duenas PA-C\.br\Date and Time Signed: 10/08/24 19:36 EST\.br\Electronically Co-Signed By: Chavo Squires DO\.br\Date and Time Co-Signed: 10/08/24 21:54 EST ED Patient Summaryon 025 ED Patient Summary ED Patient Summary [address] [address] Patient Discharge Instructions Person Information Name: GAEL RUBY Age: 29 Years Arrival Date: 10/08/2024 17:45:21 Discharge Diagnosis: Gastroparesis; Nausea & vomiting Primary Care Physician: YOSSI GOLDNE MD Provider Information Primary Provider: Alphonso Sullivan M.D. Advanced Hydrostatic Tubing Tester:Artem Duenas PA-C The exam and treatment you received in the Emergency Department were for an urgent problem and are not intended as complete care. It is important that you follow up with a doctor, nurse practitioner, or physician???s occupational therapist's assistant for ongoing care. If your symptoms [...] Follow-up Instructions: With: Address: When: Aly Beverly [address] [facility], [address], [address] [phone] Business (1) In 3 days 10/11/2024 With: Address: When: YOSSI GOLDEN [address] [place], [place] [id number] Business (1) In 3 days In the event that this physician does not participate in your insurance network, please consult with your insurance company to find a nearby participating provider. Patient Education Materials: Gastroparesis A MESSAGE TO ALL PATIENTS REGARDING OPIOIDS PRESCRIPTION OPIOIDS: WHAT YOU NEED TO KNOW Prescription opioids can be used to help relieve rnxmuxgq-eu-msudvo pain and are often prescribed following a [...] to learn (more content not included)... Normal [facility] Extra Blueon 10-08-2024 Tube Collected Plasma Yes Invalid Interpretation Code [facility] Comment on above: Performed By: #### 1 [id number] #### [facility] [address] [place] [address] HEMATOLOGYOrdered By: SYSTEM SYSTEM on 10-08-2024 Basophils/100 [...] 10-08-2024 Albumin [Mass/Vol] 4.5 g/dL Normal 3.3-5.0 [facility] Comment on above: Performed By: #### 2 [id number] #### [facility] [address] [place] [address] Albumin/Globulin (S) [Mass conc ratio] 1.2 Normal 1.1-2.2 [facility] Comment on above: Performed By: #### 2 [id number] #### [facility] [address] [place] [address] ALP [Catalytic activity/Vol] 86 Int._Unit/L Normal 21-98 [facility] Comment on above: Performed By: #### 2 [id number] #### [facility] [address] [place] [address] ALT No additional P-5'-P [Catalytic activity/Vol] 40 Int._Unit/L Normal 6-46 [facility] Comment on above: Performed By: #### 2 [id number] #### [facility] [address] [place] [address] AST [Catalytic activity/Vol] 52 Int._Unit/L High 5-43 [facility] Comment on above: Performed By: #### 2 [id number] #### [facility] [address] [place] [address] Bilirubin [Mass/Vol] 0.6 mg/dL Normal 0.0-1.1 [facility] Comment on above: Performed By: #### 2 [id number] #### [facility] [address] [place] [address] Bilirubin.direct [Mass/Vol] 0.1 mg/dL Normal 0.0-0.4 [facility] Comment on above: Performed By: #### 2 [id number] #### [facility] [address] [place] [address] Bilirubin.indirect [Mass or moles/Vol] 0.5 mg/dL Normal 0.1-0.9 [facility] Comment on above: Performed By: #### 2 [id number] #### [facility] [address] [place] [address] Globulin (S) [Mass/Vol] 3.7 g/dL Normal 1.4-4.0 [facility] Comment on above: Performed By: #### 2 [id number] #### [facility] [address] [place] [address] Protein [Mass/Vol] 8.2 g/dL High 6.0-7.8 [facility] Comment on above: Performed By: #### 2 [id number] #### [facility] [address] [place] [address] Lipase Levelon 10-08-2024 Lipase [Catalytic activity/Vol] 117 U/L High 13-58 [facility] Comment on above: Performed By: #### 2 [id number] #### [facility] [address] [place] [address] SEROLOGYOrdered By: Jaxon Sheldon on 10-08-2024 Beta HCG ( test) Ql Negative (10/08/24 6:23 PM) Normal [facility] Man Sero UA with Cult Rflxon 10-08-19 25 Bacteria Auto Ql (U) Trace Normal Trace Fish er [facility] Comment on above: Performed By: #### 4 [id number] #### [facility] [address] [place] [address] Bilirubin Ql (U) Negative Normal Negative [facility] Comment on above: Performed By: #### 4 [id number] #### [facility] [address] [place] [address] Clarity (U) Clear Normal Clear [facility] Comment on above: Performed By: #### 4 [id number] #### [facility] [address] [place] [address] Color (U) Light-Yellow Normal Yellow [facility] Comment on above: Result Comment: Micr oscopic readings are only performed on those samples that meet specific criteria set forth by [facility]. Performed By: #### 4 [id number] #### [facility] [address] [place] [address] Epithelial cells.squamous Auto (Urine sed) [#/Area] 0-2 Invalid Interpretation Code [facility] Comment on above: Performed By: #### 4 [id number] #### [facility] [address] [place] [address] Glucose Ql (U) Negative Normal Negative [facility] Comment on above: Performed By: #### 4 [id number] #### [facility] [address] [place] [address] Hemoglobin Auto test strip (U) [Mass/Vol] Negative Normal Negative [facility] Comment on above: Performed By: #### 4 [id number] #### [facility] [address] [place] [address] Ketones Auto test strip Ql (U) Negative Normal Negative [facility] Comment on above: Performed By: #### 4 [id number] #### [facility] [address] [place] [address] Leukocyte esterase Auto test strip Ql (U) 75 Zhanna/uL Abnormal Negative [facility] Comment on above: Performed By: #### 4 [id number] #### [facility] [address] [place] [address] Mucus Auto Ql (U) Negative Normal Negative [facility] Comment on above: Performed By: #### 4 [id number] #### [facility] [address] [place] [address] Nitrite Auto test strip Ql (U) Negative Normal Negative [facility] Comment on above: Performed By: #### 4 [id number] #### [facility] [address] [place] [address] pH (U) 6.5 [pH] Invalid Interpretation Code 5.0-9.0 [facility] Comment on above: Performed By: #### 4 [id number] #### [facility] [address] [place] [address] Protein Ql (U) Negative Normal Negative [facility] Comment on above: Performed By: #### 4 [id number] #### [facility] [address] [place] [address] RBC Ql (U) 0-3 Normal 0-3 [facility] Comment on above: Performed By: #### 4 [id number] #### [facility] [address] [place] [address] Specific gravity (U) [Rel density] 1.009 Invalid Interpretation Code 1.005-1.030 [facility] Comment on above: Performed By: #### 4 [id number] #### [facility] [address] [place] [address] Urobilinogen (U) [Mass/Vol] Negative Normal Negative [facility] Comment on above: Performed By: #### 4 [id number] #### [facility] [address] [place] [address] WBC Auto (Urine sed) [#/Area] 0-5 Normal 0-5 [facility] Comment on above: Performed By: #### 4 [id number] #### [facility] [address] [place] [address] Type of Urine collection method Clean Catch Normal [facility] Comment on above: Performed By: #### 4 [id number] #### [facility] [address] [place] [address] URINALYSISOrdered By: SYSTEM SYSTEM on 10-08-2024 Bacteria Auto Ql (U) Trace /HPF Normal Trace/HPF [facility] UA Auto SS Bilirubin Ql (U) Negative Normal Negativemg/ dL [facility] UA Auto SS Clarity (U) Clear (10/08/24 8:03 PM) Normal Clear [facility] UA Auto SS Color (U) Light-Yellow 1 (10/08/24 8:03 PM) Normal Yellow [facility] UA Auto SS Comment on above: Interpretive Data: M icroscopic readings are only performed on those samples that meet specific criteria set forth by [facility]. Epithelial cells.squamous Auto (Urine sed) [#/Area] [...] Zhanna/uL Zhanna/uL Invalid Interpretation Code NegativeLeu /uL [facility] UA Auto SS Mucus Auto Ql (U) Negative Normal Negativegr a ded/LPF [facility] UA Auto SS Nitrite Auto test strip Ql (U) Negative Normal Negativemg/ dL [facility] UA Auto SS pH (U) 6.5 *NA* (10/08/24 8:03 PM) Invalid Interpretation Code 5.0 - 9.0 [facility] UA Auto SS Protein Ql (U) Negative Normal Negativemg/ dL [facility] UA Auto SS RBC Ql (U) 0-3 graded/HPF Normal 0-3graded/H PF [facility] UA Auto SS Specific gravity (U) [Rel density] 1.009 *NA* (10/08/24 8:03 PM) Invalid Interpretation Code 1.005 - 1.030 [facility] UA Auto SS Urobilinogen (U) [Mass/Vol] Negative Normal Negativemg/ dL [facility] UA Auto SS WBC Auto (Urine sed) [#/Area] 0-5 graded/HPF Normal 0-5graded/H PF [facility] UA Auto SS URINALYSISOrdered By: Artem Duenas on 10-08-2024 UA Spec Desc Clean Catch (10/08/24 8:03 PM) Normal [facility] UA Auto SS eGFRon 10-08-2024 eGFR 119 mL/min/1.73 m2 Normal >=59 [facility] Comment on above: Performed By: #### 1 [id number] #### [facility] [address] [place] [address] BMPon 10-06-2024 Anion gap [Moles/Vol] 15 mmol/L Normal 6-16 [facility] Comment on above: Performed By: #### 2 [id number] #### [facility] [address] [place] [address] Calcium [Mass/Vol] 10.2 mg/dL Normal 8.9-11.1 [facility] Comment on above: Performed By: #### 2 [id number] #### [facility] [address] [place] [address] Chloride [Moles/Vol] 104 mmol/L Normal 101-111 [facility] Comment on above: Performed By: #### 2 [id number] #### [facility] [address] [place] [address] CO2 [Moles/Vol] 23 mmol/L Normal 21-31 [facility] Comment on above: Performed By: #### 2 [id number] #### [facility] [address] [place] [address] Creatinine [Mass/Vol] 0.7 mg/dL Normal 0.5-1.3 [facility] Comment on above: Performed By: #### 2 [id number] #### [facility] [address] [place] [address] Glucose [Mass/Vol] 145 mg/dL Normal 55-199 [facility] Comment on above: Performed By: #### 2 [id number] #### [facility] [address] [place] [address] Potassium [Moles/Vol] 4.1 mmol/L Normal 3.5-5.3 [facility] Comment on above: Performed By: #### 2 [id number] #### [facility] [address] [place] [address] Sodium [Moles/Vol] 138 mmol/L Normal 135-145 [facility] Comment on above: Performed By: #### 2 [id number] #### [facility] [address] [place] [address] Urea nitrogen [Mass/Vol] 11 mg/dL Normal 5-21 [facility] Comment on above: Performed By: #### 2 [id number] #### [facility] [address] [place] [address] Urea nitrogen/Creatinine [Mass ratio] 16 No Units Normal 10-20 [facility] Comment on above: Performed By: #### 2 [id number] #### [facility] [address] [place] [address] CBC w/ Auto Diffon 5 Basophils/100 WBC (Bld) 0.8 % Normal 0.0-2.0 [facility] Comment on above: Performed By: #### 2 [id number] #### [facility] [address] [place] [address] Basophils/Leukocytes Auto (Bld) [Pure # fraction] 0.1 E9/L Normal 0.0-0.2 [facility] Comment on above: Performed By: #### 2 [id number] #### [facility] [address] [place] [address] Eosinophils (Bld) [#/Vol] 0.1 E9/L Normal 0.0-0.5 [facility] Comment on above: Performed By: #### 2 [id number] #### [facility] [address] [place] [address] Eosinophils/100 WBC (Bld) 0.7 % Normal 0.0-8.0 [facility] Comment on above: Performed By: #### 2 [id number] #### [facility] [address] [place] [address] Erythrocyte distribution width (RBC) [Ratio] 14.6 % High 10.9-14.2 [facility] Comment on above: Performed By: #### 2 [id number] #### [facility] [address] [place] [address] Hematocrit (Bld) [Volume fraction] 48.4 % High 34.0-46.0 [facility] Comment on above: Performed By: #### 2 [id number] #### [facility] [address] [place] [address] Hemoglobin (Bld) [Mass/Vol] 16.3 g/dL High 12.0-16.0 [facility] Comment on above: Performed By: #### 2 [id number] #### [facility] [address] [place] [address] Lymphocytes (Bld) [#/Vol] 4.5 E9/L High 1.0-4.0 [facility] Comment on above: Performed By: #### 2 [id number] #### [facility] [address] [place] [address] Lymphocytes/100 WBC (Bld) 32.2 % Normal 14.0-50.0 [facility] Comment on above: Performed By: #### 2 037375 #### [facility] [address] [place] [address] MCH (RBC) [Entitic mass] 29.1 pg Normal 27.0-34.0 [facility] Comment on above: Performed By: #### 2 [id number] #### [facility] [address] [place] [address] MCHC (RBC) [Mass/Vol] 33.8 g/dL Normal 31.4-36.0 [facility] Comment on above: Performed By: #### 2 [id number] #### [facility] [address] [place] [address] MCV (RBC) [Entitic vol] 86.2 fL Normal 80.0-100.0 [facility] Comment on above: Performed By: #### 2 [id number] #### [facility] [address] [place] [address] Monocytes (Bld) [#/Vol] 0.7 E9/L Normal 0.2-1.0 [facility] Comment on above: Performed By: #### 2 [id number] #### [facility] [address] [place] [address] Neutrophils (Bld) [#/Vol] 8.5 E9/L High 2.0-7.5 [facility] Comment on above: Performed By: #### 2 667169 #### [facility] [address] [place] [address] Neutrophils/100 WBC (Bld) 61.3 % Normal 36.0-75.0 [facility] Comment on above: Performed By: #### 2 [id number] #### [facility] [address] [place] [address] Platelet mean volume (Bld) [Entitic vol] 8.1 fL Normal 6.4-10.8 [facility] Comment on above: Performed By: #### 2 [id number] #### [facility] [address] [place] [address] Platelets (Bld) [#/Vol] 346.0 E9/L Normal 150.0-500.0 [facility] Comment on above: Performed By: #### 2 438194 #### [facility] [address] [place] [address] RBC (Bld) [#/Vol] 5.6 E12/L Normal 4.3-5.9 [facility] Comment on above: Performed By: #### 2 187393 #### [facility] [address] [place] [address] WBC corrected for nucl RBC Auto (Bld) [#/Vol] 13.9 E9/L High 4.0-11.0 [facility] Comment on above: Performed By: #### 2 [id number] #### [facility] [address] [place] [address] CHEMISTRYOrdered By: SYSTEM SYSTEM on 10-06-2024 Albumin [...] 2024 ED Clinical Summary ED Clinical Summary [place] [address] ED Clinical Summary Person Information Name: GAEL RUBY Josep/[facility] Age: 29 Years : 1995 Sex: Female Language: [place] PCP: YOSSI GOLDEN MD Marital Status: Visit [...] 10/06/2024 19:51:31 10/06/2024 19:51:31 10/06/2024 19:51:31 ADDRESS: [address] [place] [phone] PHYS DOC NOTES: MEDICAL INFORMATION: Prescriptions Given: New Medications [facility] [id number] [place] [address] [phone], [phone] dicyclomine (Bentyl 10 mg Cap) 1 Capsules By Mouth 4 times a day as needed abdominal pain. Refills: 0. Medications to Continue Taking That Have Changed [facility] [id number] [place] [phone], [phone] START: promethazine (promethazine 12.5 mg Supp) 1 [...] PATIENT EDUCATION INFORMATION: Instructions: Abdominal Pain, Adult, Zxpf-uf-Xigo Follow up: With: Address: When: Aly Beverly [address] [place] [address], [facility] [address], [place] [phone] Business (1) In 3 days 10/09/2024 Comments: Call to schedule a follow-up appointment with your g (more content not included)... Normal [facility] ED Note-Nursingon 10-06-2024 ED Note-Nursing ED Note-Nursing Pt d/c with due to unable to drive from following medication administration Normal [facility] ED Patient Summaryon 025 ED Patient Summary ED Patient Summary [place] [id number] Patient Discharge Instructions Person Information Name: GAEL RUBY Age: 29 Years Arrival Date: 10/06/2024 13:00:33 Discharge Diagnosis: Epigastric abdominal pain; Gastroparesis; N&V (nausea and vomiting) Primary Care Physician: YOSSI GOLDEN MD Provider Information Primary Provider: Phan Sandy DO [employer] Tester:Mouna Quintanilla PA-C The exam and treatment you received in the Emergency Department were for an urgent problem and are not intended as complete care. It is important that you follow up with a doctor, nurse practitioner, or physician???s occupational therapist's assistant for ongoing care. 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 Use the Bentyl and Phenergan as needed for symptom management. Return to the ED with any new or worsening symptoms. With: Address: When: YOSSI GOLDEN [address], [place] [phone] [employer] (1) In 3 days In the event that this physician does not participate in your insurance network, please consult with your insurance company to find a nearby participating provider. Patient Education Materials: Abdominal Pain, Adult, Cbyj-tg-Amtd A MESSAGE TO ALL PATIENTS REGARDING OPIOIDS PRESCRIPTION OPIOIDS: WHAT YOU NEED TO KNOW Prescription opioids can be used to help relieve ffoxjnuf-tp-bcorpw pain and are often prescribed following a [...] prescription opioid (more content not included)... Normal [facility] Extra Blueon 10-06-2024 Tube Collected Plasma Yes Invalid Interpretation Code [facility] Comment on above: Performed By: #### 1 [id number] #### [facility] [address] [place] [address] HEMATOLOGYOrdered By: SYSTEM SYSTEM on 10-06-2024 Basophils/100 [...] 10-06-2024 Albumin [Mass/Vol] 4.8 g/dL Normal 3.3-5.0 [facility] Comment on above: Performed By: #### 2 [id number] #### [facility] [address] [place] [address] Albumin/Globulin (S) [Mass conc ratio] 1.4 Normal 1.1-2.2 [facility] Comment on above: Performed By: #### 2 851122 #### [facility] [address] [place] [address] ALP [Catalytic activity/Vol] 89 Int._Unit/L Normal 21-98 [facility] Comment on above: Performed By: #### 2 [id number] #### [facility] [address] [place] [address] ALT No additional P-5'-P [Catalytic activity/Vol] 35 Int._Unit/L Normal 6-46 [facility] Comment on above: Performed By: #### 2 [id number] #### [facility] [address] [place] [address] AST [Catalytic activity/Vol] 30 Int._Unit/L Normal 5-43 [facility] Comment on above: Performed By: #### 2 [id number] #### [facility] [address] [place] [address] Bilirubin [Mass/Vol] 0.6 mg/dL Normal 0.0-1.1 [facility] Comment on above: Performed By: #### 2 [id number] #### [facility] [address] [place] [address] Bilirubin.direct [Mass/Vol] 0.1 mg/dL Normal 0.0-0.4 [facility] Comment on above: Performed By: #### 2 [id number] #### [facility] [address] [place] [address] Bilirubin.indirect [Mass or moles/Vol] 0.5 mg/dL Normal 0.1-0.9 [facility] Comment on above: Performed By: #### 2 [id number] #### [facility] [address] [place] [address] Globulin (S) [Mass/Vol] 3.5 g/dL Normal 1.4-4.0 [facility] Comment on above: Performed By: #### 2 [id number] #### [facility] [address] [place] [address] Protein [Mass/Vol] 8.3 g/dL High 6.0-7.8 [facility] Comment on above: Performed By: #### 2 [id number] #### [facility] [address] [place] [address] Lipase Levelon 10-06-2024 Lipase [Catalytic activity/Vol] 73 U/L High 13-58 [facility] Comment on above: Performed By: #### 2 [id number] #### [facility] [address] [place] [address] UA with Cult Rflxon 10-06-19 25 Bilirubin Ql (U) Negative Normal Negative [facility] Comment on above: Performed By: #### 4 [id number] #### [facility] [address] [place] [address] Clarity (U) Clear Normal Clear [facility] Comment on above: Performed By: #### 4 [id number] #### [facility] [address] [place] [address] Color (U) Light-Yellow Normal Yellow [facility] Comment on above: Result Comment: Micr oscopic readings are only performed on those samples that meet specific criteria set forth by [facility]. Performed By: #### 4 [id number] #### [facility] [address] [place] [address] Glucose Ql (U) 4+ mg/dL Abnormal Negative [facility] Comment on above: Performed By: #### 4 [id number] #### [facility] [address] [place] [address] Hemoglobin Auto test strip (U) [Mass/Vol] Negative Normal Negative [facility] Comment on above: Performed By: #### 4 [id number] #### [facility] [address] [place] [address] Ketones Auto test strip Ql (U) Negative Normal Negative [facility] Comment on above: Performed By: #### 4 [id number] #### [facility] [address] [place] [address] Leukocyte esterase Auto test strip Ql (U) Negative Normal Negative [facility] Comment on above: Performed By: #### 4 [id number] #### [facility] [address] [place] [address] Nitrite Auto test strip Ql (U) Negative Normal Negative [facility] Comment on above: Performed By: #### 4 [id number] #### [facility] [address] [place] [address] pH (U) 6.0 [pH] Invalid Interpretation Code 5.0-9.0 [facility] Comment on above: Performed By: #### 4 [id number] #### [facility] [address] [place] [address] Protein Ql (U) Trace Abnormal Negative [facility] Comment on above: Performed By: #### 4 [id number] #### [facility] [address] [place] [address] Specific gravity (U) [Rel density] 1.042 Invalid Interpretation Code 1.005-1.030 [facility] Comment on above: Performed By: #### 4 [id number] #### [facility] [address] [place] [address] Urobilinogen (U) [Mass/Vol] Negative Normal Negative [facility] Comment on above: Performed By: #### 4 [id number] #### [facility] [address] [place] [address] Type of Urine collection method Clean Catch Normal [facility] Comment on above: Performed By: #### 4 [id number] #### [facility] [address] [place] [address] URINALYSISOrdered By: SYSTEM SYSTEM on 10-06-2024 Bilirubin Ql (U) Negative Normal Negativemg/ dL [facility] UA Auto SS Clarity (U) Clear (10/06/24 1:27 PM) Normal Clear [facility] UA Auto SS Color (U) Light-Yellow 1 (10/06/24 1:27 PM) Normal Yellow [facility] UA Auto SS Comment on above: Interpretive Data: M icroscopic readings are only performed on those samples that meet specific criteria set forth by [facility]. Glucose Ql (U) 4+ mg/dL Invalid [...] PM) Invalid Interpretation Code 1.005 - 1.030 [facility] UA Auto SS Urobilinogen (U) [Mass/Vol] Negative Normal Negativemg/ dL [facility] UA Auto SS URINALYSISOrdered By: Lisa Santos on 10-06-2024 UA Spec Desc Clean Catch (10/06/24 1:27 PM) Normal [facility] UA Auto SS eGFRon 10-06-2024 eGFR 119 mL/min/1.73 m2 Normal >=59 [facility] Comment on above: Performed By: #### 1 [id number] #### [facility] [address] [place] [address] ED Clinical Summaryon 2024 ED Clinical Summary ED Clinical Summary [address] [address] ED Clinical Summary Person Information [facility]: [facility] Age[facility] 29 Years : 1995 Sex: Female Language: [place] PCP: YOSSI GOLDEN MD Marital Status: Visit Id: Visit Reason: Medical problem - [...] 10/05/2024 02:31:47 10/05/2024 02:31:47 10/05/2024 02:31:47 ADDRESS: [address] [place] [phone] [facility] DOC NOTES: MEDICAL INFORMATION: Prescriptions Given: Medications [...] Follow up: With: Address: When: Colt Rizzo [employer], [address] [place], [place] [phone] [employer] (1) In 3 days 10/08/2024 With: Address: When: Colt Rizzo [employer], [address] [place] [phone] [employer] (1) In 3 days 10/08/2024 With: Address: When: YOSSI GOLDEN [address] [place], [place] [id number] [employer] (1) In 3 days DIAGNOSIS: Acute abdominal pain; Gastroparesis Normal [facility] ED Note-Physicianon 10-05-19 ED Note-Physician ED Note-Physician [...] and Complexity of Problems Differential Diagnosis: [] [facility] Data External documents reviewed: N/A My EKG [...] Deniz 50 mL [F] 50 mL + [id number] [F] 25 mg, IV Piggyback Disposition Plan Discharge Prescription List Prescriptions No active prescription medications Follow-up With When Contact Information Colt Allan In 3 days 10/08/2024 EST [address], [address] [place], [place] [phone] Business (1) Additional Instructions: Colt Allan In 3 days 10/08/[address], [address] [place] [phone] Business (1) Additional Instructions: YOSSI GOLDEN In 3 days [address] [place] [address] Business (1) Additional Instructions: Patient Education Gastroparesis Problem List/Past Medical History Ongoing Abdominal pain Abdominal pain, periumbilical Acute pancreatitis Bilateral lower extremity edema BMI 37.0-37.9, adult Cholangiectasis Chronic constipatio (more content not included)... Normal [facility] Comment on above: Result Comment: Elec tronically Signed By: Tonny Butler DO\.br\Date and Time Signed: 10/05/24 02:09 EST ED Patient Summaryon 025 ED Patient Summary ED Patient Summary [address] [address] Patient Discharge Instructions Person Information Name: GAEL RBUY Age: 29 Years Arrival Date: 10/04/2024 18:49:00 Discharge Diagnosis: Acute abdominal pain; Gastroparesis Primary Care Physician: YOSSI GOLDEN MD Provider Information Primary Provider: Tonny Butler DO Advanced Hydrostatic Tubing Tester:None The exam and treatment you received in the Emergency Department were for an urgent problem and are not intended as complete care. It is important that you follow up with a doctor, nurse practitioner, or physician???s occupational therapist's assistant for ongoing care. If your symptoms become worse or you do not improve as expected and you are unable to reach your usual health care provider, you should return to the Emergency Department. We are available 24 hours a day. GAEL RUBY has been given the following list of patient education materials, prescriptions and follow-up instructions: Follow-up Instructions: With: Address: When: Shaheenriya Allan [address], [address] [place] [phone] Business (1) In 3 days 10/08/2024 With: Address: When: Shaheenriya Doegina [address], [address] [place] [phone] Business (1) In 3 days 10/08/2024 With: Address: When: YOSSI GOLDEN [address], [place] [phone] Business (1) In 3 days In the event that this physician does not participate in your insurance network, please consult with your insurance company to find a nearby participating provider. Patient Education Materials: Gastroparesis A MESSAGE TO ALL PATIENTS REGARDING OPIOIDS PRESCRIPTION OPIOIDS: WHAT YOU NEED TO KNOW Prescription opioids can be used to help relieve rjnjukaz-eb-mexyjf pain and are often prescribed following a [...] Food and (more content not included)... Normal [facility] B hCG Qualon 10-04-2024 Beta HCG ( test) Ql Negative Normal [facility] Comment on above: Performed By: #### 2 [id number] #### [facility] [address] [place] [address] BMPon 10-04-2024 Anion gap [Moles/Vol] 16 mmol/L Normal 6-16 [facility] Comment on above: Performed By: #### 2 [id number] #### [facility] [address] [place] [address] Calcium [Mass/Vol] 10.0 mg/dL Normal 8.9-11.1 [facility] Comment on above: Performed By: #### 2 [id number] #### [facility] [address] [place] [address] Chloride [Moles/Vol] 102 mmol/L Normal 101-111 [facility] Comment on above: Performed By: #### 2 787957 #### [facility] [address] [place] [address] CO2 [Moles/Vol] 21 mmol/L Normal 21-31 [facility] Comment on above: Performed By: #### 2 113398 #### [facility] [address] [place] [address] Creatinine [Mass/Vol] 1.1 mg/dL Normal 0.5-1.3 [facility] Comment on above: Performed By: #### 2 [id number] #### [facility] [address] [place] [address] Glucose [Mass/Vol] 316 mg/dL High 55-199 [facility] Comment on above: Performed By: #### 2 [id number] #### [facility] [address] [place] [address] Potassium [Moles/Vol] 4.2 mmol/L Normal 3.5-5.3 [facility] Comment on above: Performed By: #### 2 148258 #### [facility] [address] [place] [address] Sodium [Moles/Vol] 135 mmol/L Normal 135-145 [facility] Comment on above: Performed By: #### 2 023386 #### [facility] [address] [place] [address] Urea nitrogen [Mass/Vol] 17 mg/dL Normal 5-21 [facility] Comment on above: Performed By: #### 2 692042 #### [facility] [address] [place] [address] Urea nitrogen/Creatinine [Mass ratio] 16 No Units Normal 10-20 [facility] Comment on above: Performed By: #### 2 590781 #### [facility] [address] [place] [address] CBC w/ Auto Diffon 5 Basophils/100 WBC (Bld) 1.0 % Normal 0.0-2.0 [facility] Comment on above: Performed By: #### 2 779810 #### [facility] [address] [place] [address] Basophils/Leukocytes Auto (Bld) [Pure # fraction] 0.1 E9/L Normal 0.0-0.2 [facility] Comment on above: Performed By: #### 2 741850 #### [facility] [address] [place] [address] Eosinophils (Bld) [#/Vol] 0.2 E9/L Normal 0.0-0.5 [facility] Comment on above: Performed By: #### 2 863657 #### [facility] [address] [place] [address] Eosinophils/100 WBC (Bld) 1.2 % Normal 0.0-8.0 [facility] Comment on above: Performed By: #### 2 651537 #### [facility] [address] [place] [address] Erythrocyte distribution width (RBC) [Ratio] 14.7 % High 10.9-14.2 [facility] Comment on above: Performed By: #### 2 610360 #### [facility] [address] [place] [address] Hematocrit (Bld) [Volume fraction] 45.5 % Normal 34.0-46.0 [facility] Comment on above: Performed By: #### 2 116064 #### [facility] [address] [place] [address] Hemoglobin (Bld) [Mass/Vol] 15.4 g/dL Normal 12.0-16.0 [facility] Comment on above: Performed By: #### 2 977210 #### [facility] [address] [place] [address] Lymphocytes (Bld) [#/Vol] 4.6 E9/L High 1.0-4.0 [facility] Comment on above: Performed By: #### 2 340048 #### [facility] [address] [place] [address] Lymphocytes/100 WBC (Bld) 36.6 % Normal 14.0-50.0 [facility] Comment on above: Performed By: #### 2 961651 #### [facility] [address] [place] [address] MCH (RBC) [Entitic mass] 29.1 pg Normal 27.0-34.0 [facility] Comment on above: Performed By: #### 2 425977 #### [facility] [address] [place] [address] MCHC (RBC) [Mass/Vol] 33.8 g/dL Normal 31.4-36.0 [facility] Comment on above: Performed By: #### 2 271862 #### [facility] [address] [place] [address] MCV (RBC) [Entitic vol] 86.0 fL Normal 80.0-100.0 [facility] Comment on above: Performed By: #### 2 128635 #### [facility] [address] [place] [address] Monocytes (Bld) [#/Vol] 0.6 E9/L Normal 0.2-1.0 [facility] Comment on above: Performed By: #### 2 179962 #### [facility] [address] [place] [address] Neutrophils (Bld) [#/Vol] 7.1 E9/L Normal 2.0-7.5 [facility] Comment on above: Performed By: #### 2 163371 #### [facility] [address] [place] [address] Neutrophils/100 WBC (Bld) 56.1 % Normal 36.0-75.0 [facility] Comment on above: Performed By: #### 2 893808 #### [facility] [address] [place] [address] Platelet 345.0 E9/L Normal 150.0-500.0 [facility] Comment on above: Performed By: #### 2 435222 #### [facility] [address] [place] [address] Platelet mean volume (Bld) [Entitic vol] 8.3 fL Normal 6.4-10.8 [facility] Comment on above: Performed By: #### 2 180813 #### [facility] [address] [place] [address] RBC (Bld) [#/Vol] 5.3 E12/L Normal 4.3-5.9 [facility] Comment on above: Performed By: #### 2 993222 #### [facility] [address] [place] [address] WBC corrected for nucl RBC Auto (Bld) [#/Vol] 12.7 E9/L High 4.0-11.0 [facility] Comment on above: Performed By: #### 2 133906 #### [facility] [address] [place] [address] CHEMISTRYOrdered By: SYSTEM SYSTEM on 10-04-2024 Albumin [...] 10-04-2024 Albumin [Mass/Vol] 4.4 g/dL Normal 3.3-5.0 [facility] Comment on above: Performed By: #### 2 448252 #### [facility] [address] [place] [address] Albumin/Globulin (S) [Mass conc ratio] 1.3 Normal 1.1-2.2 [facility] Comment on above: Performed By: #### 2 375696 #### [facility] [address] [place] [address] ALP [Catalytic activity/Vol] 86 Int._Unit/L Normal 21-98 [facility] Comment on above: Performed By: #### 2 463765 #### [facility] [address] [place] [address] ALT No additional P-5'-P [Catalytic activity/Vol] 28 Int._Unit/L Normal 6-46 [facility] Comment on above: Performed By: #### 2 550143 #### [facility] [address] [place] [address] AST [Catalytic activity/Vol] 30 Int._Unit/L Normal 5-43 [facility] Comment on above: Performed By: #### 2 912255 #### [facility] [address] [place] [address] Bilirubin [Mass/Vol] 0.5 mg/dL Normal 0.0-1.1 [facility] Comment on above: Performed By: #### 2 823659 #### [facility] [address] [place] [address] Bilirubin.direct [Mass/Vol] 0.1 mg/dL Normal 0.0-0.4 [facility] Comment on above: Performed By: #### 2 434698 #### [facility] [address] [place] [address] Bilirubin.indirect [Mass or moles/Vol] 0.4 mg/dL Normal 0.1-0.9 [facility] Comment on above: Performed By: #### 2 923072 #### [facility] [address] [place] [address] Globulin (S) [Mass/Vol] 3.3 g/dL Normal 1.4-4.0 [facility] Comment on above: Performed By: #### 2 207287 #### [facility] [address] [place] [address] Protein [Mass/Vol] 7.7 g/dL Normal 6.0-7.8 [facility] Comment on above: Performed By: #### 2 492206 #### [facility] [address] [place] [address] Lipase Levelon 10-04-2024 Lipase [Catalytic activity/Vol] 119 U/L High 13-58 [facility] Comment on above: Performed By: #### 2 775739 #### [facility] [address] [place] [address] SEROLOGYOrdered By: Shannan Rowe on 10-04-2024 Beta HCG ( test) Ql Negative (10/04/24 8:32 PM) Normal [facility] Man Sero eGFRon 10-04-2024 eGFR 69 mL/min/1.73 m2 Normal >=59 [facility] Comment on above: Performed By: #### 1 [id number] #### [facility] [address] [place] [address] ALL THYROID STIM HORMONEon 0 09-30-2024 MHPT THYROID STIM. HORM. 0.57 [facility] Original Ordering Provider: MERRILL PADILLA [facility] B hCG Qualon 09-30-2024 Beta HCG ( test) Ql Negative Normal [facility] Comment on above: Performed By: #### 2 [id number] #### [facility] [address] [place] [address] BMPon 09-30-2024 Anion gap [Moles/Vol] 15 mmol/L Normal 6-16 [facility] Comment on above: Performed By: #### 2 154744 #### [facility] [address] [place] [address] Calcium [Mass/Vol] 9.6 mg/dL Normal 8.9-11.1 [facility] Comment on above: Performed By: #### 2 655499 #### [facility] [address] [place] [address] Chloride [Moles/Vol] 105 mmol/L Normal 101-111 [facility] Comment on above: Performed By: #### 2 411290 #### [facility] [address] [place] [address] CO2 [Moles/Vol] 23 mmol/L Normal 21-31 [facility] Comment on above: Performed By: #### 2 291978 #### [facility] [address] [place] [address] Creatinine [Mass/Vol] 0.8 mg/dL Normal 0.5-1.3 [facility] Comment on above: Performed By: #### 2 560322 #### [facility] [address] [place] [address] Glucose [Mass/Vol] 195 mg/dL Normal 55-199 [facility] Comment on above: Performed By: #### 2 013683 #### [facility] [address] [place] [address] Potassium [Moles/Vol] 4.2 mmol/L Normal 3.5-5.3 [facility] Comment on above: Performed By: #### 2 688583 #### [facility] [address] [place] [address] Sodium [Moles/Vol] 139 mmol/L Normal 135-145 [facility] Comment on above: Performed By: #### 2 268490 #### [facility] [address] [place] [address] Urea nitrogen [Mass/Vol] 14 mg/dL Normal 5-21 [facility] Comment on above: Performed By: #### 2 290617 #### [facility] [address] [place] [address] Urea nitrogen/Creatinine [Mass ratio] 18 No Units Normal 10-20 [facility] Comment on above: Performed By: #### 2 [id number] #### [facility] [address] [place] [address] CBC w/ Auto Diffon 5 Basophils/100 WBC (Bld) 1.2 % Normal 0.0-2.0 [facility] Comment on above: Performed By: #### 2 998046 #### [facility] [address] [place] [address] Basophils/Leukocytes Auto (Bld) [Pure # fraction] 0.1 E9/L Normal 0.0-0.2 [facility] Comment on above: Performed By: #### 2 857216 #### [facility] [address] [place] [address] Eosinophils (Bld) [#/Vol] 0.1 E9/L Normal 0.0-0.5 [facility] Comment on above: Performed By: #### 2 721804 #### [facility] [address] [place] [address] Eosinophils/100 WBC (Bld) 0.7 % Normal 0.0-8.0 [facility] Comment on above: Performed By: #### 2 324735 #### [facility] [address] [place] [address] Erythrocyte distribution width (RBC) [Ratio] 14.9 % High 10.9-14.2 [facility] Comment on above: Performed By: #### 2 233835 #### [facility] [address] [place] [address] Hematocrit (Bld) [Volume fraction] 46.6 % High 34.0-46.0 [facility] Comment on above: Performed By: #### 2 754648 #### [facility] [address] [place] [address] Hemoglobin (Bld) [Mass/Vol] 15.9 g/dL Normal 12.0-16.0 [facility] Comment on above: Performed By: #### 2 640109 #### [facility] [address] [place] [address] Lymphocytes (Bld) [#/Vol] 3.2 E9/L Normal 1.0-4.0 [facility] Comment on above: Performed By: #### 2 499364 #### [facility] [address] [place] [address] Lymphocytes/100 WBC (Bld) 29.7 % Normal 14.0-50.0 [facility] Comment on above: Performed By: #### 2 484571 #### [facility] [address] [place] [address] MCH (RBC) [Entitic mass] 29.3 pg Normal 27.0-34.0 [facility] Comment on above: Performed By: #### 2 828030 #### [facility] [address] [place] [address] MCHC (RBC) [Mass/Vol] 34.1 g/dL Normal 31.4-36.0 [facility] Comment on above: Performed By: #### 2 002667 #### [facility] [address] [place] [address] MCV (RBC) [Entitic vol] 85.8 fL Normal 80.0-100.0 [facility] Comment on above: Performed By: #### 2 282023 #### [facility] [address] [place] [address] Monocytes (Bld) [#/Vol] 0.5 E9/L Normal 0.2-1.0 [facility] Comment on above: Performed By: #### 2 423491 #### [facility] [address] [place] [address] Neutrophils (Bld) [#/Vol] 6.9 E9/L Normal 2.0-7.5 [facility] Comment on above: Performed By: #### 2 592140 #### [facility] [address] [place] [address] Neutrophils/100 WBC (Bld) 63.4 % Normal 36.0-75.0 [facility] Comment on above: Performed By: #### 2 010767 #### [facility] [address] [place] [address] Platelet mean volume (Bld) [Entitic vol] 8.6 fL Normal 6.4-10.8 [facility] Comment on above: Performed By: #### 2 078326 #### [facility] [address] [place] [address] Platelets (Bld) [#/Vol] 311.0 E9/L Normal 150.0-500.0 [facility] Comment on above: Performed By: #### 2 806398 #### [facility] [address] [place] [address] RBC (Bld) [#/Vol] 5.4 E12/L Normal 4.3-5.9 [facility] Comment on above: Performed By: #### 2 418337 #### [facility] [address] [place] [address] WBC corrected for nucl RBC Auto (Bld) [#/Vol] 10.9 E9/L Normal 4.0-11.0 [facility] Comment on above: Performed By: #### 2 554855 #### [facility] [address] [place] [address] CHEMISTRYOrdered By: SYSTEM SYSTEM on 09-30-2024 Albumin [...] 2024 ED Clinical Summary ED Clinical Summary [address] [address] ED Clinical Summary Person Information Name: GAEL RUBY [place] Age: 29 Years : 1995 Sex: Female Language: [place] PCP: YOSSI GOLDEN MD Marital Status: Visit [...] 09/30/2024 13:49:55 09/30/2024 13:49:55 09/30/2024 13:49:55 ADDRESS: [address] [place] [id number] PHYS DOC NOTES: MEDICAL INFORMATION: Prescriptions Given: New Medications [facility] [id number], [address], [place] [id number], [phone] acetaminophen-oxycodon e (Percocet 5 mg-325 mg oral tablet) 1 Tablets By Mouth every 6 hours as needed Pain 8-10 for 3 Days. Refills: 0. prochlorperazine (prochlorperazine 5 mg Tab) 1 Tablets By Mouth 3 times a day as needed for nausea/vomiting. Refills: 0. Medications to Continue Taking That Have Changed [facility] [id number], [address], [place] [id number], [phone] START: ondansetron (Zofran ODT 4 mg Tab-Dis) [...] With: Address: When: YOSSI GOLDEN [address] [place], [place] [phone] [facility] ([employer] In 3 days 10/03/2024 Comments: Call the [...] vomiting, n (more content not included)... Normal [facility] ED Note-Physicianon 09-30-19 ED Note-Physician ED Note-Physician Basic Information Time Seen: Rubin ROSA Cameron Donato 09/30/2024 10:54 Chief Complaint py presents with [...] for this and has been referred to [facility] for surgery. She took Reglan and GI [...] has scheduled follow-up with her GI at [facility]. Return precautions were discussed. All questions were [...] 4 mg/mL Inj, 4 mg, IV Push [id number] [F] 25 mg + Sodium Chloride 0.9% [...] mg Tab (more content not included)... Normal [facility] Comment on above: Result Comment: Elec tronically Signed By: Cameron Conklin DO\.jarred\Date and Time Signed: 09/30/24 19:31 EST ED Patient Summaryon 025 ED Patient Summary ED Patient Summary [place] [id number] Patient Discharge Instructions Person Information Name: GAEL RUBY Age: 29 Years Arrival Date: 09/30/2024 10:45:13 Discharge Diagnosis: Diabetic gastroparesis; Epigastric abdominal pain; Gastroparesis Primary Care Physician: YOSSI GOLDEN MD Provider Information Primary Provider: Cameron Conklin DO Advanced Hydrostatic Tubing Tester:None The exam and treatment you received in the Emergency Department were for an urgent problem and are not intended as complete care. It is important that you follow up with a doctor, nurse practitioner, or physician???s occupational therapist's assistant for ongoing care. If your symptoms [...] With: Address: When: YOSSI GOLDEN [address], [place] [phone] [facility] (1) In 3 days 10/03/2024 Comments: [...] opioids can be used to help relieve niwlzjnq-jg-hxemrm pain and are often prescribed following a [...] o W (more content not included)... Normal [facility] HEMATOLOGYOrdered By: SYSTEM SYSTEM on 09-30-2024 Basophils/100 [...] from glycated hemoglobin (Bld) [Mass/Vol] 183 mg/dL [facility] Comment on above: The ADA and AACC rec ommend providing the estimated average glucose result to permit better patient understanding of their HBA1c result. HbA1c (Bld) [Mass fraction] 8.0 % High 4.0 - 6.0 % [facility] Interpretation and review of laboratory results Abnormal [facility] Glucose [Mass/Vol] 183 mg/dL Normal [facility] Comment on above: Result Comment: The ADA and AACC recommend providing the estimated average glucose result to permit better patient understanding of their HBA1c result. Performed By: #### L IPR, GLYHGB ####[place] [address] [place], [place] [id number] Lab Director: Rishabh Mendieta MD#### TSH ####[address] [place] [id number] Lab Director: Murtaza Arceo MD HbA1c (Bld) [Mass fraction] 8.0 % High 4.0-6.0 [facility] Comment on above: Performed By: #### L IPR, GLYHGB ####[facility] [id number] [place] [address] Lab Director: Rishabh Mendieta MD#### TSH ####[address] [place], [place] [address] Lab Director: Murtaza Arceo MD Hep Func Panelon 09-30-2024 Albumin [Mass/Vol] 4.6 g/dL Normal 3.3-5.0 [facility] Comment on above: Performed By: #### 2 790902 #### [facility] [address] [place] [address] Albumin/Globulin (S) [Mass conc ratio] 1.4 Normal 1.1-2.2 [facility] Comment on above: Performed By: #### 2 451581 #### [facility] [address] [place] [address] ALP [Catalytic activity/Vol] 98 Int._Unit/L Normal 21-98 [facility] Comment on above: Performed By: #### 2 637506 #### [facility] [address] [place] [address] ALT No additional P-5'-P [Catalytic activity/Vol] 35 Int._Unit/L Normal 6-46 [facility] Comment on above: Performed By: #### 2 438912 #### [facility] [address] [place] [address] AST [Catalytic activity/Vol] 48 Int._Unit/L High 5-43 [facility] Comment on above: Performed By: #### 2 026083 #### [facility] [address] [place] [address] Bilirubin [Mass/Vol] 0.7 mg/dL Normal 0.0-1.1 [facility] Comment on above: Performed By: #### 2 175121 #### [facility] [address] [place] [address] Bilirubin.direct [Mass/Vol] 0.1 mg/dL Normal 0.0-0.4 [facility] Comment on above: Performed By: #### 2 299717 #### [facility] [address] [place] [address] Bilirubin.indirect [Mass or moles/Vol] 0.6 mg/dL Normal 0.1-0.9 [facility] Comment on above: Performed By: #### 2 190244 #### [facility] [address] [place] [address] Globulin (S) [Mass/Vol] 3.3 g/dL Normal 1.4-4.0 [facility] Comment on above: Performed By: #### 2 407238 #### [facility] [address] [place] [address] Protein [Mass/Vol] 7.9 g/dL High 6.0-7.8 [facility] Comment on above: Performed By: #### 2 260520 #### [facility] [address] [place] [address] Lipase Levelon 09-30-2024 Lipase [Catalytic activity/Vol] 93 U/L High 13-58 [facility] Comment on above: Performed By: #### 2 077662 #### [facility] [address] [place] [address] Lipid Panelon 09-30-2024 Cholesterol [Mass/Vol] 233 mg/dL High 0 - 1 99 mg/dL [facility] Comment on above: Cholesterol Guidelines: <200 Desirable 200-240 Borderline >240 Undesirable Cholesterol in HDL [Mass/Vol] 40 mg/dL Low 40 - PINF mg/dL [employer] [facility] Comment on above: HDL Guidelines: <40 Undesirable 40-59 Borderline >59 Desirable Cholesterol in LDL [Mass/Vol] 132 mg/dL High 0 - 100 mg/dL [employer] Comment on above: LDL Guidelines: <100 Desirable 100-129 Near to/above Desirable 130-159 Borderline >159 Undesirable Direct (measured) LDL and calculated LDL are not interchangeable tests. Cholesterol in VLDL [Mass/Vol] 61 mg/dL High 1 - 30 mg/dL [employer] Cholesterol.total/Chol esterol in HDL [Mass ratio] 5.8 {ratio} [employer] Interpretation and review of laboratory results Abnormal [employer] Triglyceride [Mass/Vol] 307 mg/dL High NINF - 150 mg/dL [employer] Comment on above: Triglyceride Guidelines: <150 Desirable 150-199 Borderline 200-499 High >499 Very high Based on AHA Guidelines for fasting triglyceride, June 2012. [employer] Lipid Profileon 09-30-2024 Cholesterol [Mass/Vol] 233 mg/dL High 0-199 [facility] Comment on above: Result Comment: Cholesterol Guidelines: <200 Desirable 200-240 Borderline >240 Undesirable Performed By: #### L IPR, GLYHGB ####[facility] [address] [place], [place] [phone] Director: Rishabh Mendieta MD#### TSH ####[address] [place], [place] [id number] Lab Director: Murtaza Arceo MD Cholesterol in HDL [Mass/Vol] 40 mg/dL Low >40 [facility] Comment on above: Result Comment: HDL Guidelines: <40 Undesirable 40-59 Borderline >59 Desirable Performed By: #### L IPR, GLYHGB ####[address] [place], [place] [phone] Director: Rishabh Mendieta MD#### TSH ####[address] [place] [address] Lab Director: Murtaza Arceo MD Cholesterol in LDL [Mass/Vol] 132 mg/dL High 0-100 [facility] Comment on above: Result Comment: LDL Guidelines: <100 Desirable 100-129 Near to/above Desirable 130-159 Borderline >159 Undesirable Direct (measured) LDL and calculated LDL are not interchangeable tests. Performed By: #### L IPR, GLYHGB ####[address] [place] [address] Lab Director: Rishabh Mendieta MD#### TSH ####[address] [place] [address] Lab Director: Murtaza Arceo MD Cholesterol in VLDL [Mass/Vol] 61 mg/dL High 1-30 [facility] Comment on above: Performed By: #### L IPR, GLYHGB ####[address] [place] [address] Lab Director: Rishabh Mendieta MD#### TSH ####[address], [place] [id number] Lab Director: Murtaza Arceo MD Cholesterol.total/Chol esterol in HDL [Mass ratio] 5.8 {ratio} Normal [facility] Comment on above: Performed By: #### L IPR, GLYHGB ####[facility] [address] [place] [address] Lab Director: Rishabh Mendieta MD#### TSH ####[address] [id number] Lab Director: Murtaza Arceo MD Triglyceride [Mass/Vol] 307 mg/dL High <150 [facility] Comment on above: Result Comment: Triglyceride Guidelines: <150 Desirable 150-199 Borderline 200-499 High >499 Very high Based on AHA Guidelines for fasting triglyceride, June 2012. Performed By: #### L IPR, GLYHGB ####[facility] [place] [address] Lab Director: Rishabh Mendieta MD#### TSH ####[address] [place], [place] [address] Lab Director: Murtaza Arceo MD SEROLOGYOrdered By: Samantha briones on 09-30-2024 Beta HCG ( test) Ql Negative (09/30/24 11:20 AM) Normal [facility] Man Sero TSHon 09-30-2024 TSH Qn 0.57 m[IU]/L [facility] Thyroid Stim. Horm.on 2024 Thyroid Stim. Horm. 0.57 uIU/mL Normal 0.27-4.20 [facility] Comment on above: Performed By: #### L IPR, GLYHGB ####[facility] [address] [place] [address] Lab Director: Rishabh Mendieta MD#### TSH ####[address] [place] [address] Lab Director: Mutraza Arceo MD UA with Cult Rflxon 09-30-19 25 Bilirubin Ql (U) Negative Normal Negative [facility] Comment on above: Performed By: #### 4 [id number] #### [facility] [address] [place] [address] Clarity (U) Turbid Abnormal Clear [facility] Comment on above: Performed By: #### 4 [id number] #### [facility] [address] [place] [address] Color (U) Colorless Abnormal Yellow [facility] Comment on above: Result Comment: Micr oscopic readings are only performed on those samples that meet specific criteria set forth by [facility]. Performed By: #### 4 [id number] #### [facility] [address] [place] [address] Epithelial cells.squamous Auto (Urine sed) [#/Area] 0-2 Invalid Interpretation Code [facility] Comment on above: Performed By: #### 4 [id number] #### [facility] [address] [place] [address] Glucose Ql (U) 4+ mg/dL Abnormal Negative [facility] Comment on above: Performed By: #### 4 [id number] #### [facility] [address] [place] [address] Hemoglobin Auto test strip (U) [Mass/Vol] Negative Normal Negative [facility] Comment on above: Performed By: #### 4 [id number] #### [facility] [address] [place] [address] Ketones Auto test strip Ql (U) Negative Normal Negative [facility] Comment on above: Performed By: #### 4 [id number] #### [facility] [address] [place] [address] Leukocyte esterase Auto test strip Ql (U) Negative Normal Negative [facility] Comment on above: Performed By: #### 4 [id number] #### [facility] [address] [place] [address] Mucus Auto Ql (U) Negative Normal Negative [facility] Comment on above: Performed By: #### 4 [id number] #### [facility] [address] [place] [address] Nitrite Auto test strip Ql (U) Negative Normal Negative [facility] Comment on above: Performed By: #### 4 [id number] #### [facility] [address] [place] [address] pH (U) 5.5 [pH] Invalid Interpretation Code 5.0-9.0 [facility] Comment on above: Performed By: #### 4 [id number] #### [facility] [address] [place] [address] Protein Ql (U) Negative Normal Negative [facility] Comment on above: Performed By: #### 4 [id number] #### [facility] [address] [place] [address] RBC Ql (U) 0-3 Normal 0-3 [facility] Comment on above: Performed By: #### 4 [id number] #### [facility] [address] [place] [address] Specific gravity (U) [Rel density] 1.039 Invalid Interpretation Code 1.005-1.030 [facility] Comment on above: Performed By: #### 4 [id number] #### [facility] [address] [place] [address] Urobilinogen (U) [Mass/Vol] Negative Normal Negative [facility] Comment on above: Performed By: #### 4 [id number] #### [facility] [address] [place] [address] WBC Auto (Urine sed) [#/Area] 0-5 Normal 0-5 [facility] Comment on above: Performed By: #### 4 [id number] #### [facility] [address] [place] [address] Type of Urine collection method Clean Catch Normal [facility] Comment on above: Performed By: #### 4 [id number] #### [facility] [address] [place] [address] URINALYSISOrdered By: SYSTEM SYSTEM on 09-30-2024 Bilirubin Ql (U) Negative Normal Negativemg/ dL [facility] UA Auto SS Clarity (U) Turbid *ABN* (09/30/24 12:30 PM) Invalid Interpretation Code Clear [facility] UA Auto SS Color (U) Colorless 1 *ABN* (09/30/24 12:30 PM) Invalid Interpretation Code Yellow [facility] UA Auto SS Comment on above: Interpretive Data: M icroscopic readings are only performed on those samples that meet specific criteria set forth by [facility]. Epithelial cells.squamous Auto (Urine sed) [#/Area] 0-2 graded/HPF Invalid Interpretation Code [facility] UA Auto SS Glucose Ql (U) 4+ mg/dL Invalid Interpretation Code Negativemg/ dL [facility] UA Auto SS Hemoglobin Auto test strip (U) [Mass/Vol] Negative Normal Negativemg/ dL [facility] UA Auto SS Ketones Auto test strip Ql (U) Negative Normal Negativemg/ dL [facility] UA Auto SS Leukocyte esterase Auto test strip Ql (U) Negative Normal NegativeLeu /uL [facility] UA Auto SS Mucus Auto Ql (U) Negative Normal Negativegr a ded/LPF [facility] UA Auto SS Nitrite Auto [...] Urobilinogen (U) [Mass/Vol] Negative Normal Negativemg/ dL [facility] UA Auto SS WBC Auto (Urine sed) [#/Area] 0-5 graded/HPF Normal 0-5graded/H PF [facility] UA Auto SS URINALYSISOrdered By: Cameron Conklin on 09-30-2024 UA Spec Desc Clean Catch (09/30/24 12:30 PM) Normal [facility] UA Auto SS eGFRon 09-30-2024 eGFR 101 mL/min/1.73 m2 Normal >=59 [facility] Comment on above: Performed By: #### 1 [id number] #### [facility] [address] [address] Katelyn 09-24-2024 CNPN Telephone (GASTSP) GAEL RUBY ([id number]) 1995 F Date Time Provider Department 09/24/24 YAJAIRA LACKEY [facility] During your visit today, we recorded the following information about you: Abel Beckwith 09/24/2024 1:34 PM Signed ----- Message from Anne Cavazos sent at 09/21/2024 10:38 AM EST ----- Regarding: Gastroparesis Good morning, We received a referral for patient to be seen in Gastroenterology for Gastroparesis. Referring provider is Aly Beverly. Best contact info is [phone]. Thank you, Abel Rogel 09/24/2024 1:35 PM [...] ME AND SURGERY, EGG is in Yajaira Lackey, 09/24/2024 3:36 PM Signed Addended by: YAJAIRA [...] Primary Visit Diagnosis:Gastroparesi s [K31.84] Order(s):EGG (ELECTROGASTROGRAPHY) [04957PWV] Order #: [id number] Problem List As Of Date: 09/24/2024 (None) Encounter Status:Closed by ABEL BECKWITH on 09/24/24 Normal [facility] 09-17-2024 Anion gap [Moles/Vol] 14 mmol/L 9 - 16 mmol/L [facility] Calcium [Mass/Vol] 10.1 mg/dL 8.6 - 10. 4 mg/dL [facility] Chloride [Moles/Vol] 102 mmol/L 98 - 10 7 mmol/L [facility] CO2 [Moles/Vol] 24 mmol/L 20 - 31 mmol/L [facility] Creatinine [Mass/Vol] 0.8 mg/dL 0.50 - 0.90 mg/dL [facility] Est, Amarilis Shanks Rate - PINF [facility] Comment on above: These results are not [...] 197 mg/dL High 74 - 99 mg/dL [facility] Potassium [Moles/Vol] 4.4 mmol/L 3.7 - 5.3 mmol/L [facility] Sodium [Moles/Vol] 140 mmol/L 136 - 145 mmol/L [facility] Urea nitrogen [Mass/Vol] 12 mg/dL 6 - 20 mg/dL [facility] Urea nitrogen/Creatinine [Mass ratio] 15 mg/mg 9 - [facility] Basic Metabolic Profon 09-17 Anion gap [Moles/Vol] 14 mmol/L Normal 9-16 [facility] Comment on above: Performed By: #### C DP, CP #### [facility] [address] [place] [address] Product Strategy Director: Murtaza Arceo MD BUN/CRE Ratio 15 Normal - [facility] Comment on above: Performed By: #### C DP, CP #### [facility] [address] [place], [place] [id number] Product Strategy Director: Murtaza Arceo MD Calcium [Mass/Vol] 10.1 mg/dL Normal 8.6-10.4 [facility] Comment on above: Performed By: #### C DP, CP #### [facility] [address] [place], [place] [id number] Product Strategy Director: Murtaza Arceo MD Chloride [Moles/Vol] 102 mmol/L Normal 98-107 [facility] Comment on above: Performed By: #### C DP, CP #### [facility] [address] [place] [address] Product Strategy Director: Murtaza Arceo MD CO2 [Moles/Vol] 24 mmol/L Normal 20-31 [facility] Comment on above: Performed By: #### C DP, CP #### [facility] [address] [place] [address] Product Strategy Director: Murtaza Arceo MD Creatinine [Mass/Vol] 0.8 mg/dL Normal 0.50-0.90 [facility] Comment on above: Performed By: #### C DP, CP #### [facility] [address] [place] [address] Product Strategy Director: Murtaza Arceo MD GFR/1.73 sq M.predicted among non-blacks MDRD (S/P/Bld) [Vol rate/Area] mL/min/{1.73_m2} Normal >60 [facility] Comment on above: Result Comment: These [...] secretion. Performed By: #### C DP, CP #### [facility] [address] [place] [address] [place] [address] Product Strategy Director: Murtaza Arceo MD Glucose [Mass/Vol] 197 mg/dL High 74-99 [facility] Comment on above: Performed By: #### C VENKAT, CP #### [address] [place], [place] [address] Product Strategy Director: Murtaza Arceo MD Potassium [Moles/Vol] 4.4 mmol/L Normal 3.7-5.3 [facility] Comment on above: Performed By: #### C DP, CP #### [address] [place], [place] [address]83 Product Strategy Director: Murtaza Arceo MD Sodium [Moles/Vol] 140 mmol/L Normal 136-145 [facility] Comment on above: Performed By: #### C DP, CP #### [address] [place] [address] Product Strategy Director: Murtaza Arceo MD Urea nitrogen [Mass/Vol] 12 mg/dL Normal 6-20 [facility] Comment on above: Performed By: #### C DP, CP #### [facility] [address] [place] [address] Product Strategy Director: Murtaza Arceo MD CBC with Auto Differentialon 09-17-2024 Basophils (Bld) [#/Vol] 0.06 10*3/uL [facility] Basophils/100 WBC (Bld) 1 % 0 - 2 % [facility] Eosinophils (Bld) [#/Vol] 0.14 10*3/uL [facility] Eosinophils/100 WBC (Bld) 1 % 1 - 4 % [facility] Erythrocyte distribution width (RBC) [Ratio] 13.3 % 11.8 - 14.4 % [facility] Hematocrit (Bld) [Volume fraction] 45.3 % 36.3 - 47.1 % [facility] Hemoglobin (Bld) [Mass/Vol] 14.8 g/dL 11.9 - 15.1 g/dL [facility] Immature granulocytes (Bld) [#/Vol] 0.06 10*3/uL [facility] Immature granulocytes/100 WBC (Bld) 1 % High 0 [facility] Interpretation and review of laboratory results Abnormal [facility] Lymphocytes/100 WBC (Bld) 31 % 24 - 43 % [facility] Lymphocytes/100 WBC (Bld) 3.77 % High [facility] MCH (RBC) [Entitic mass] 28.4 pg 25.2 - 33.5 pg [facility] MCHC (RBC) [Mass/Vol] 32.7 g/dL 28.4 - 34.8 g/dL [facility] MCV (RBC) [Entitic vol] 86.9 fL 82.6 - 102.9 fL [facility] Monocytes/100 WBC (Bld) 5 % 3 - 12 % [facility] Monocytes/100 WBC (Bld) 0.59 % [facility] Neutrophils/100 WBC (Bld) 61 % 36 - 65 % [facility] Nucleated RBC/100 WBC (Bld) [Ratio] 0.0 % 0.0 per 100 WBC [facility] Platelet mean volume (Bld) [Entitic vol] 10.3 fL 8.1 - 13.5 fL [facility] Platelets (Bld) [#/Vol] 337 10*3/uL [facility] RBC (Bld) [#/Vol] 5.21 10*6/uL High 3.95 - 5.1 1 m/uL [facility] Segmented neutrophils/100 WBC (Bld) 7.45 % [facility] WBC other (Bld) [#/Vol] 12.1 High [facility] CBC with Diffon 09-17-2024 Abs. Basophil 0.06 k/uL Normal 0.00-0.20 [facility] Comment on above: Performed By: #### C DP, CP #### [facility] [address] [place] [address] [place] [address] Product Strategy Director: Murtaza Arceo MD Abs.Imm.Granulocyte 0.06 k/uL Normal 0.00-0.30 [facility] Comment on above: Performed By: #### C DP, CP #### [address] [address] Product Strategy Director: Murtaza Arceo MD Abs.Neutrophil (Seg) 7.45 k/uL Normal 1.50-8.10 [facility] Comment on above: Performed By: #### C DP, CP #### [facility] [address] [place] [address] Dr. [place], [place] [address] Product Strategy Director: Murtaza Arceo MD Basophils/100 WBC (Bld) 1 % Normal 0-2 [facility] Comment on above: Performed By: #### C DP, CP #### [facility] [address] [place] [address] Dr. [place], [facility] Product Strategy Director: Murtaza Arceo MD Eosinophils (Bld) [#/Vol] 0.14 10*3/uL Normal 0.00-0.44 [facility] Comment on above: Performed By: #### C DP, CP #### [facility] [address] [place], [place] [address] Product Strategy Director: Murtaza Arceo MD Eosinophils/100 WBC (Bld) 1 % Normal 1-4 [facility] Comment on above: Performed By: #### C DP, CP #### [address] [place], [place] [address]83 Product Strategy Director: Murtaza Arceo MD Erythrocyte distribution width (RBC) [Ratio] 13.3 % Normal 11.8-14.4 [facility] Comment on above: Performed By: #### C DP, CP #### [address] [place], [place] 276[address]83 Product Strategy Director: Murtaza Arceo MD Hematocrit (Bld) [Volume fraction] 45.3 % Normal 36.3-47.1 [facility] Comment on above: Performed By: #### C DP, CP #### [address] [place], [place] [address]083 Product Strategy Director: Murtaza Arceo MD Hemoglobin (Bld) [Mass/Vol] 14.8 g/dL Normal 11.9-15.1 [facility] Comment on above: Performed By: #### C DP, CP #### [address] [place], [place] 5862183 Product Strategy Director: Murtaza Arceo MD Immature granulocytes/100 WBC (Bld) 1 % High 0 [facility] Comment on above: Performed By: #### C DP, CP #### [address] [place], [place] [id number] Product Strategy Director: Murtaza Arceo MD Lymphocytes (Bld) [#/Vol] 3.77 10*3/uL High 1.10-3.70 [facility] Comment on above: Performed By: #### C DP, CP #### [address] [place], [place] [address]83 Product Strategy Director: Murtaza Arceo MD Lymphocytes/100 WBC (Bld) 31 % Normal 24-43 [facility] Comment on above: Performed By: #### C DP, CP #### [facility] [address] [place], [place] [id number] Product Strategy Director: Murtaza Arceo MD MCH (RBC) [Entitic mass] 28.4 pg Normal 25.2-33.5 [facility] Comment on above: Performed By: #### C DP, CP #### [facility] [address] [place] [address] Product Strategy Director: Murtaza Arceo MD MCHC (RBC) [Mass/Vol] 32.7 g/dL Normal 28.4-34.8 [facility] Comment on above: Performed By: #### C DP, CP #### [address] [place], [facility]83 Product Strategy Director: Murtaza Arceo MD MCV (RBC) [Entitic vol] 86.9 fL Normal 82.6-102.9 [facility] Comment on above: Performed By: #### C DP, CP #### [address] [place] [address] Product Strategy Director: Murtaza Arceo MD Monocytes (Bld) [#/Vol] 0.59 10*3/uL Normal 0.10-1.20 [facility] Comment on above: Performed By: #### C DP, CP #### [facility] [address] [place] [address] [place] [address] Product Strategy Director: Murtaza Arceo MD Monocytes/100 WBC (Bld) 5 % Normal 3-12 [facility] Comment on above: Performed By: #### C DP, CP #### [facility] [address] [place] [address] Product Strategy Director: Murtaza Arceo MD Neutrophil (Seg) 61 % Normal 36-65 [facility] Comment on above: Performed By: #### C DP, CP #### [facility] [address] [place], [place] 6[address]83 Product Strategy Director: Murtaza Arceo MD NRBC Automated 0.0 per 100 WBC Normal 0.0 [facility] Comment on above: Performed By: #### C DP, CP #### [facility] [address] [place] [address] Product Strategy Director: Murtaza Arceo MD Platelet mean volume (Bld) [Entitic vol] 10.3 fL Normal 8.1-13.5 [facility] Comment on above: Performed By: #### C DP, CP #### [facility] [address] [place], [place] [address]83 Product Strategy Director: Murtaza Arceo MD Platelets (Bld) [#/Vol] 337 10*3/uL Normal 138-453 [facility] Comment on above: Performed By: #### C DP, CP #### [facility] [address] [place], [place] 5126383 Product Strategy Director: Murtaza Arceo MD RBC (Bld) [#/Vol] 5.21 10*6/uL High 3.95-5.11 [facility] Comment on above: Performed By: #### C DP, CP #### [facility] [address] [place] [address] Product Strategy Director: Murtaza Arceo MD WBC (Bld) [#/Vol] 12.1 10*3/uL High 3.5-11.3 [facility] Comment on above: Performed By: #### C DP, CP #### [facility] [address] [place], [place] [id number] Product Strategy Director: Murtaza Arceo MD Hepatic Function Panelon Albumin [Mass/Vol] 4.4 g/dL 3.5 - 5.2 g/dL [facility] Albumin/Globulin [Mass ratio] 1.3 {ratio} 1.0 - 2.5 [facility] ALP [Catalytic activity/Vol] 105 U/L High 35 - 104 U/L [facility] ALT [Catalytic activity/Vol] 31 U/L 10 - 35 U/L [facility] AST [Catalytic activity/Vol] 27 U/L 10 - 35 U/L [facility] Bilirubin [Mass/Vol] 0.3 mg/dL 0.00 - 1.20 mg/dL [facility] Bilirubin.direct [Mass/Vol] mg/dL 0.00 - 0.30 mg/dL [facility] Bilirubin.indirect [Mass/Vol] Can not be calculated 0.0 - 1.0 mg/dL [facility] Protein [Mass/Vol] 7.6 g/dL 6.6 - 8.7 g/dL [facility] Lipaseon 09-17-2024 Lipase [Catalytic activity/Vol] 64 U/L High 13 - 60 U/L [facility] Lipase [Catalytic activity/Vol] 64 U/L High 13-60 [facility] Comment on above: Performed By: #### C DP, CP #### [facility] [address] [place] [address] [place] [address] Product Strategy Director: Murtaza Arceo MD Liver Profileon 09-17-2024 Albumin [Mass/Vol] 4.4 g/dL Normal 3.5-5.2 [facility] Comment on above: Performed By: #### C DP, CP #### [facility] [address] [place] [address] Product Strategy Director: Murtaza Arceo MD Albumin/Glob Ratio 1.3 Normal 1.0-2.5 [facility] Comment on above: Performed By: #### C DP, CP #### [facility] [address] [place] [address] Product Strategy Director: Murtaza Arceo MD Alkaline Phos 105 U/L High 35-104 [facility] Comment on above: Performed By: #### C DP, CP #### [facility] [address] [place], [place] [id number] Product Strategy Director: Murtaza Arceo MD ALT [Catalytic activity/Vol] 31 U/L Normal 35 [facility] Comment on above: Performed By: #### C DP, CP #### [facility] [address] [place], [place] 3706[address] Product Strategy Director: Murtaza Arceo MD AST [Catalytic activity/Vol] 27 U/L Normal [facility] Comment on above: Performed By: #### C DP, CP #### [address] [place], [place] [address]83 Product Strategy Director: Murtaza Arceo MD Bilirubin [Mass/Vol] 0.3 mg/dL Normal 0.00-1.20 [facility] Comment on above: Performed By: #### C DP, CP #### [facility] [address] [place] [address] Dr. [place], [place] [phone] Product Strategy Director: Murtaza Arceo MD Bilirubin, Indirect Can not be calculated Normal 0.0-1 .0 [facility] [facility] Comment on above: Performed By: #### C DP, CP #### [address] [place], [place] [id number] Product Strategy Director: Murtaza Arceo MD Bilirubin.indirect [Mass/Vol] mg/dL Normal 0.00-0.30 [facility] Comment on above: Performed By: #### C DP, CP #### [facility] [address] [place] [address] [place] [place], [place] [id number] Product Strategy Director: Murtaza Arceo MD Protein [Mass/Vol] 7.6 g/dL Normal 6.6-8.7 [facility] Comment on above: Performed By: #### C DP, CP #### [address] [place], [place] [id number] Product Strategy Director: Murtaza Arceo MD Microscopic Urinalysison Epithelial cells LM.HPF (Urine sed) [#/Area] 0 TO 2 [facility] RBC LM.HPF (Urine sed) [#/Area] None [facility] WBC LM.HPF (Urine sed) [#/Area] 0 TO 2 [facility] No Panel Informationon 09-17 Interpretation and review of laboratory results Abnormal [facility] UA w/Reflex Cultureon 2023 Bilirubin, SemiQt,Ur Negative Normal NEG [facility] Comment on above: Performed By: #### U FERNANDOO, UAX ####[facility] [place] [address] Lab Director: Murtaza Arceo MD Blood, Urine Negative Normal [facility] Comment on above: Performed By: #### U FERNANDOO, UAX ####[facility] [place] , [place] [id number] Lab Director: Murtaza Arceo MD Clarity (U) Clear Normal CLEAR [facility] Comment on above: Performed By: #### U FERNANDOO, UAX ####[address] , [place] [id number] Lab Director: Murtaza Arceo MD Color (U) Yellow Normal [place] [facility] Comment on above: Performed By: #### U MICAO, UAX ####[facility] [place] , [place] [id number] Lab Director: Murtaza Arceo MD Glucose Ql (U) 3+ mg/dL Abnormal NEG [facility] Comment on above: Performed By: #### U MICAO, UAX ####[facility] [place] [address] Lab Director: Murtaza Arceo MD Ketones Ql (U) Negative Normal NEG [facility] Comment on above: Performed By: #### U MICAO, UAX ####[address] , [place] [phone] Lab Director: Murtaza Arceo MD Leukocyte esterase Test strip Ql (U) Negative Normal NEG [facility] Comment on above: Performed By: #### U MICAO, UAX ####[address] , [place] [id number] lab Director: Murtaza Arceo MD Nitrite,Ur Negative Normal NEG [facility] Comment on above: Performed By: #### U MICAO, UAX ####[address] [place] [address] lab Director: Murtaza Arceo MD PH,Ur 6.0 Normal 5.0-9.0 [facility] Comment on above: Performed By: #### U MICAO, UAX ####[address] [place] [address] [facility] Director: Murtaza Arceo MD Protein Ql (U) Negative Normal NEG [facility] Comment on above: Performed By: #### U MICAO, UAX ####[address] , [place] 777[address] lab Director: Murtaza Arceo MD Spec. Onyx,Ur 1.015 Normal 1.010-1.020 [facility] Comment on above: Performed By: #### U MICAO, UAX ####[address] [place] [address] lab Director: Murtaza Arceo MD Urobilinogen,Ur Normal Normal 0.0-1.0 [facility] Comment on above: Performed By: #### U MICAO, UAX ####[address] [place] [address] lab Director: Murtaza Arceo MD Urinalysis with Reflex to Cu ltureon 09-17-2024 Bilirubin Ql (U) Negative NEGATIVE [facility] Clarity (U) Clear Clear [facility] Color (U) Yellow Yellow [facility] Glucose Test strip (U) [Mass/Vol] 3+ Abnormal NEGATIVE mg/dL [facility] Hemoglobin Auto test strip Ql (U) Negative NEGATIVE [facility] Interpretation and review of laboratory results Abnormal [facility] Ketones (U) [Mass/Vol] Negative NEGAT SIMA mg/dL [facility] Leukocyte esterase Test strip Ql (U) Negative NEGATIVE [facility] Nitrite Ql (U) Negative NEGATIVE [facility] pH (U) 6.0 [pH] 5.0 - 9.0 [facility] Protein (U) [Mass/Vol] Negative NEGAT SIMA mg/dL [facility] Specific gravity (U) [Rel density] 1.015 1.010 - 1.020 [facility] Urobilinogen Qn (U) Normal 0.0 - 1. 0 EU/dL [facility] Urinalysis,Microon 4 Epithelial cells LM Ql (Urine sed) 0 TO 2 Normal 0-25 [facility] Comment on above: Performed By: #### U FERNANDOO, UAX ####[facility] [place] [address] lab Director: Murtaza Arceo MD Urine RBC's None Normal 0-2 [facility] Comment on above: Performed By: #### U FERNANDOO, UAX ####[facility] [place] [address] lab Director: Murtaza Arceo MD Urine WBC's 0 TO 2 Normal 0-5 [facility] Comment on above: Performed By: #### U MICAO, UAX ####[facility] [place] [address] lab Director: Murtaza Arceo MD Ambulatory Visit [...] Someone Will Contact You Regarding These Appointments [facility] External Ambulatory Referral, Surgery, 09/10/24 12:57:00 EST, History of morbid obesity [facility] External Ambulatory Referral, Gastroenterology, 09/10/24 12:57:00 EST, [...] your (more content not included)... Normal [facility] Gastroenterology Office/Clin ic Noteon 09-10-2024 Gastroenterology Office/Clinic Note Gastroenterology Office/Clinic Note Chief Complaint EGD results. Flareups. has questions and concerns. HPI Staff Patient is a(n) 29 year old female who presents today for a follow-up to EGD on 09/02/24. very concerned and would like to discuss treatment [facility] Patient did pickup. Motegrity w.as denied [...] 86.3 fL (08/24/24) Chloride: 102 mmol/L (08/24/24) Webster Absolute: 0.6 E9/L (08/24/24) CO2: 28 mmol/L (08/24/24) Webster Auto: 5.2 % (08/24/24) Creatinine: 0.8 mg/dL [...] acute di (more content not included)... Normal [facility] Comment on above: Result Comment: Elec tronically Signed By: Beto GREWAL, Aly Whitten\.br\Date and Time Signed: 09/10/24 12:58 EST Surgical Pathology Reporton 09-08-2024 Surgical Pathology Report [facility] [address] [place] [address]- Surgical Pathology Report Collected Date/Time: 09/02/2024 14:55 EST Pathologist: Jose R GREWAL PhD, Jameel Scruggs Received Date/Time: 09/03/2024 07:36 EST Beto GREWAL, Aly Beverly MD, Aly Joyce Surgical Pathology Report - 09/08/2024 10:25 EST [...] and gastric biopsy are three fragments of rodrgiuez soft tissue measuring 0.2 cm in diameter each. Entire specimen submitted in one cassette. B: Received in formalin labeled with patient name, number, and duodenal biopsy are three fragments of rodriguez soft tissue measuring 0.2 cm in diameter each. Entire specimen submitted in one cassette. () C:[facility] Microscopic Description Microscopic examination performed unless gross only specified. The use of one or more reagents in the above tests is regulated as an analyte specific reagent (ASR). The test or tests are ordered following initial H&E microscopic examination. The performance characteristics were determined by the [facility] of [facility] Surgical Pathology. They have not been cleared or approved by the US Food and Drug Administration. The FDA has determined that such clearance or approval is not necessary. These tests are used for clinical purposes. They should not be regarded as investigational or for research. Appropriate positive and negative controls are performed and are acceptable. Normal [facility] Comment on above: Performed By: #### 4 [id number] #### [facility] [address] [place] [address] Main OR Intraoperative Recor don 09-03-2024 Main OR Intraoperative Record Main OR Intraoperative Record IntraOp Document Type FT Summary Primary Physician: Aly Beverly MD Finalized Date/Time: 09/03/24 10:16:47 Pt. Name: PORFIRIO RUBYCESARIO Chau/Sex: 1995 Female Med Rec #: [id number] Physician: Aly Beverly MD Financial #: [id number] Pt. Type: O Room/Bed: / Admit/Disch: 09/02/24 [...] Beverly MD, Brenda Del Rio Role Performed HEDGE [employer]D ACCOUNTANT Surgeon - Primary Scrub - Primary Time In 09/02/24 14:43:00 09/02/24 14:43:00 09/02/24 14:43:00 Time Out 09/02/24 15:03:00 09/02/24 15:03:00 09/02/24 15:03:00 Procedure EGD(Bilateral) EGD(Bilateral) EGD(Bilateral) Comments Dr. Kelley is supervsing Last Modified By: Devon JUDGE, Alicia Osorio RN, Alicia Downing RN 09/02/24 15:04:33 09/02/24 15:04:33 09/02/24 15:04:33 Entry 4 Case Attendee Alicia Osorio RN Role Performed Director Mission - Primary Time In 09/02/24 14:43:00 Time [...] CRNA, Time Out Complete 09/02/24 14:45:00 Participants Aly Beverly MD, Miles, Kirstyn K, Alicia Osorio RN Outcomes Met? [...] and tissue Entry 1 Skin Integrity Intact, [place], Warm, & Skin Abnormality No Dry Outcomes [...] Leg Positio (more content not included)... Normal [facility] Discharge Instructionson Discharge Instructions Discharge Instruc tions GAEL RUBY Michelle :1995 Visit Date:09/02/2024 Inpatient Discharge Instructions Your [...] EST With: Beto GREWAL, Aly Whitten Where: [facility] [address] [place] [phone]- Medications What How Much When Why Instructions [...] slowly and (more content not included)... Normal [facility] Comment on above: Result Comment: Elec tronically Signed By: Cami Daily I\.jarred\Date and Time Signed: 09/02/24 15:14 EST Inpatient Patient Summaryon 09-02-2024 Inpatient Patient Summary Inpatient Patient Summary [place] [id number] [facility] Clinical Discharge Instructions PERSON INFORMATION Name: GAEL RUBY [facility]#:[id number] PHYSICIANS Admitting Physician: Beto GREWAL, Aly Whitten Attending Physician: Aly Beverly MD PCP: YOSSI GOLDEN MD Discharge Diagnosis: Dysphagia Comment: PATIENT EDUCATION INFORMATION Instructions: Medication Leaflets: Follow up: Type Location Start [facility] Follow Up [facility] 09/10/2024 12:00 PM 09/10/2024 12:15 [...] as needed abdominal pain/cramps. Refills: 0., lot: [id number] exp: 11/18 polyethylene glycol 3350 (MiraLax) 17 Gram By Mouth 3 times a day. promethazine (Phenergan 25 mg Supp) 1 Suppositories By rectum every 12 hours as needed Nausea/Vomiting. Refills: 6. prucalopride (Motegrity 2 mg oral tablet) 1 Tablets By Mouth every day. Refills: 3. Comment: Foreign [facility] Main OR PACU II Recordon Main OR PACU II Record Main OR PACU II R ecord PACU Phase II Document Type FT Summary Primary Physician: Aly Beverly MD Finalized Date/Time: 09/02/24 16:03:58 Pt. Name: GAEL RUBY Michelle Hawkins./Sex: 1995 Female Med Rec #: [id number] Physician: Aly Beverly MD Financial #: [id number] Pt. Type: O Room/Bed: / Admit/Disch: 09/02/24 [...] By: Cami Daily I 09/02/24 16:03 Normal [facility] Main OR Preoperative Recordo n 09-02-2024 Main OR Preoperative Record Main OR Preoperative Record Holding Area Document Type FT Summary Primary Physician: Aly Beverly MD Finalized Date/Time: 09/02/24 13:54:49 Pt. Name: GAEL RUBY/Sex: 1995 Female Med Rec #: [id number] Physician: Aly Beverly MD Financial #: [id number] Pt. Type: O Room/Bed: / Admit/Disch: 09/02/24 [...] By: Beto Stevenson RN 09/02/24 13:54 Normal [facility] Outpatient Surgery Discharge Instructionon 09-02-2024 Outpatient Surgery Discharge Instruction Outpatient Surgery Discharge Instruction [place] [id number] Patient Discharge Instructions PERSON INFORMATION Name: GAEL [...] THE NEAREST EMERGENCY ROOM OR CALL 911 IFLORI KIMBERLY R, have received the attached patient education materials/instructions and have verbalized understanding: May we do a follow up call? Yes No I was present when discharge instructions were given Patient Signature Date Clinican/Nurse Signature ___ Date Follow up: Type Location Start Finish [facility] Follow Up [facility] 09/10/2024 12:00 PM 09/10/2024 12:15 PM Confirmed Pharmacy Information: You may receive a survey from [employer] asking you to rate your care experience. Your feedback is important and will help us understand what we do well and how we can improve the quality of care we provide to you, your loved ones and our community. It???s an honor to serve you. Thank you for choosing [facility] HERE ARE THE MEDICATION CHANGES THAT [...] as needed abdominal pain/cramps. Refills: 0., lot: [id number] exp: 11/18 polyethylene glycol 3350 (MiraLax) 17 Gram By Mouth 3 times a day. promethazine (Phenergan 25 mg Supp) 1 Suppositories By rectum every 12 hours as needed Nausea/Vomiting. Refills: 6. prucalopride (Motegrity 2 mg oral tablet) 1 Tablets By Mouth every day. Refills: 3. PATIENT EDUCATION INFORMATION Instructions: Medication Leaflets: Normal [facility] BMPon 08-24-2024 Anion gap [Moles/Vol] 12 mmol/L Normal 6-16 [facility] Comment on above: Performed By: #### 2 [id number] #### [facility] [address] [place] [address] Calcium [Mass/Vol] 10.1 mg/dL Normal 8.9-11.1 [facility] Comment on above: Performed By: #### 2 [id number] #### [facility] [address] [place] [address] Chloride [Moles/Vol] 102 mmol/L Normal 101-111 [facility] Comment on above: Performed By: #### 2 [id number] #### [facility] [address] [place] [address] CO2 [Moles/Vol] 28 mmol/L Normal 21-31 [facility] Comment on above: Performed By: #### 2 [id number] #### [facility] [address] [place] [address] Creatinine [Mass/Vol] 0.8 mg/dL Normal 0.5-1.3 [facility] Comment on above: Performed By: #### 2 [id number] #### [facility] [address] [place] [address] Glucose [Mass/Vol] 227 mg/dL High 55-199 [facility] Comment on above: Performed By: #### 2 [id number] #### [facility] [address] [place] [address] Potassium [Moles/Vol] 5.0 mmol/L Normal 3.5-5.3 [facility] Comment on above: Performed By: #### 2 [id number] #### [facility] [address] [place] [address] Sodium [Moles/Vol] 137 mmol/L Normal 135-145 [facility] Comment on above: Performed By: #### 2 [id number] #### [facility] [address] [place] [address] Urea nitrogen [Mass/Vol] 17 mg/dL Normal 5-21 [facility] Comment on above: Performed By: #### 2 [id number] #### [facility] [address] [place] [address] Urea nitrogen/Creatinine [Mass ratio] 21 No Units High 10-20 [facility] Comment on above: Performed By: #### 2 [id number] #### [facility] [address] [place] [address] CBC w/ Auto Diffon 4 Basophils/100 WBC (Bld) 1.0 % Normal 0.0-2.0 [facility] Comment on above: Performed By: #### 2 [id number] #### [facility] [address] [place] [address] Basophils/Leukocytes Auto (Bld) [Pure # fraction] 0.1 E9/L Normal 0.0-0.2 [facility] Comment on above: Performed By: #### 2 [id number] #### [facility] [address] [place] [address] Eosinophils (Bld) [#/Vol] 0.1 E9/L Normal 0.0-0.5 [facility] Comment on above: Performed By: #### 2 [id number] #### [facility] [address] [place] [address] Eosinophils/100 WBC (Bld) 0.9 % Normal 0.0-8.0 [facility] Comment on above: Performed By: #### 2 [id number] #### [facility] [address] [place] [address] Erythrocyte distribution width (RBC) [Ratio] 14.1 % Normal 10.9-14.2 [facility] Comment on above: Performed By: #### 2 [id number] #### [facility] [address] [place] [address] Hematocrit (Bld) [Volume fraction] 42.8 % Normal 34.0-46.0 [facility] Comment on above: Performed By: #### 2 436231 #### [facility] [address] [place] [address] Hemoglobin (Bld) [Mass/Vol] 14.9 g/dL Normal 12.0-16.0 [facility] Comment on above: Performed By: #### 2 [id number] #### [facility] [address] [place] [address] Lymphocytes (Bld) [#/Vol] 3.7 E9/L Normal 1.0-4.0 [facility] Comment on above: Performed By: #### 2 076226 #### [facility] [address] [place] [address] Lymphocytes/100 WBC (Bld) 33.1 % Normal 14.0-50.0 [facility] Comment on above: Performed By: #### 2 169982 #### [facility] [address] [place] [address] MCH (RBC) [Entitic mass] 30.1 pg Normal 27.0-34.0 [facility] Comment on above: Performed By: #### 2 563571 #### [facility] [address] [place] [address] MCHC (RBC) [Mass/Vol] 34.9 g/dL Normal 31.4-36.0 [facility] Comment on above: Performed By: #### 2 321645 #### [facility] [address] [place] [address] MCV (RBC) [Entitic vol] 86.3 fL Normal 80.0-100.0 [facility] Comment on above: Performed By: #### 2 [id number] #### [facility] [address] [place] [address] Monocytes (Bld) [#/Vol] 0.6 E9/L Normal 0.2-1.0 [facility] Comment on above: Performed By: #### 2 625327 #### [facility] [address] [place] [address] Neutrophils (Bld) [#/Vol] 6.7 E9/L Normal 2.0-7.5 [facility] Comment on above: Performed By: #### 2 890037 #### [facility] [address] [place] [address] Neutrophils/100 WBC (Bld) 59.8 % Normal 36.0-75.0 [facility] Comment on above: Performed By: #### 2 [id number] #### [facility] [address] [place] [address] Platelet mean volume (Bld) [Entitic vol] 8.6 fL Normal 6.4-10.8 [facility] Comment on above: Performed By: #### 2 948394 #### [facility] [address] [place] [address] Platelets (Bld) [#/Vol] 321.0 E9/L Normal 150.0-500.0 [facility] Comment on above: Performed By: #### 2 317191 #### [facility] [address] [place] [address] RBC (Bld) [#/Vol] 5.0 E12/L Normal 4.3-5.9 [facility] Comment on above: Performed By: #### 2 836395 #### [facility] [address] [place] [address] WBC corrected for nucl RBC Auto (Bld) [#/Vol] 11.3 E9/L High 4.0-11.0 [facility] Comment on above: Performed By: #### 2 575388 #### [facility] [address] [place] [address] CHEMISTRYOrdered By: SYSTEM SYSTEM on 08-24-2024 Albumin [...] 2023 ED Clinical Summary ED Clinical Summary [place] [id number] ED Clinical Summary Person Information Name: GAEL RUBY Josep/[facility] Age: 29 Years : 1995 Sex: Female Language: [place] PCP: YOSSI GOLDEN MD Marital Status: Phone: [...] 08/24/2024 17:46:32 08/24/2024 17:46:32 08/24/2024 17:46:32 ADDRESS: [address] [place] [id number] PHYS DOC NOTES: MEDICAL INFORMATION: Prescriptions Given: [...] Instructions: Follow up: With: Address: When: Aly Guardado, [address], [address] [phone] Business (1) In 3 days 08/27/2024 With: Address: When: YOSSI GOLDEN [address] [place], [place] [phone] Business (1) In 3 days DIAGNOSIS: Gastroparesis Normal [facility] ED Note-Physicianon 08-24-20 ED Note-Physician ED Note-Physician [...] Hepatic Functi (more content not included)... Normal [facility] Comment on above: Result Comment: Elec tronically Signed By: Phan Sandy DO\.br\Date and Time Signed: 08/24/24 17:31 EST ED Patient Education Noteon 08-24-2024 ED Patient Education Note ED Patient Education Note Normal [facility] ED Patient Summaryon 024 ED Patient Summary ED Patient Summary [address] [address] Patient Discharge Instructions Person Information Name: GAEL RUBY Age: 29 Years Arrival Date: 08/24/2024 12:11:53 Discharge Diagnosis: Gastroparesis Primary Care Physician: YOSSI GOLDEN MD Provider Information Primary Provider: Phan Sandy DO Advanced Hydrostatic Tubing Tester:None The exam and treatment you received in the Emergency Department were for an urgent problem and are not intended as complete care. It is important that you follow up with a doctor, nurse practitioner, or physician???s occupational therapist's assistant for ongoing care. If your symptoms [...] Follow-up Instructions: With: Address: When: Aly Beverly [address] [facility], [address], [address] [phone] Business (1) In 3 days 08/27/2024 With: Address: When: YOSSI GOLDEN [address] [place], [place] [phone] Business (1) In 3 days In the event that this physician does not participate in your insurance network, please consult with your insurance company to find a nearby participating provider. Patient Education Materials: A MESSAGE TO ALL PATIENTS REGARDING OPIOIDS PRESCRIPTION OPIOIDS: WHAT YOU NEED TO KNOW Prescription opioids can be used to help relieve wzeefwak-hw-knsqfy pain and are often prescribed following a [...] If yo (more content not included)... Normal [facility] Extra Blueon 08-24-2024 Tube Collected Plasma Yes Invalid Interpretation Code [facility] Comment on above: Performed By: #### 1 [id number] #### [facility] [address] [place] [address] HEMATOLOGYOrdered By: SYSTEM SYSTEM on 08-24-2024 Basophils/100 [...] 08-24-2024 Albumin [Mass/Vol] 4.4 g/dL Normal 3.3-5.0 [facility] Comment on above: Performed By: #### 2 [id number] #### [facility] [address] [place] [address] Albumin/Globulin (S) [Mass conc ratio] 1.4 Normal 1.1-2.2 [facility] Comment on above: Performed By: #### 2 [id number] #### [facility] [address] [place] [address] ALP [Catalytic activity/Vol] 83 Int._Unit/L Normal 21-98 [facility] Comment on above: Performed By: #### 2 [id number] #### [facility] [address] [place] [address] ALT No additional P-5'-P [Catalytic activity/Vol] 28 Int._Unit/L Normal 6-46 [facility] Comment on above: Performed By: #### 2 194797 #### [facility] [address] [place] [address] AST [Catalytic activity/Vol] 20 Int._Unit/L Normal 5-43 [facility] Comment on above: Performed By: #### 2 [id number] #### [facility] [address] [place] [address] Bilirubin [Mass/Vol] 0.5 mg/dL Normal 0.0-1.1 [facility] Comment on above: Performed By: #### 2 [id number] #### [facility] [address] [place] [address] Bilirubin.direct [Mass/Vol] 0.1 mg/dL Normal 0.0-0.4 [facility] Comment on above: Performed By: #### 2 [id number] #### [facility] [address] [place] [address] Bilirubin.indirect [Mass or moles/Vol] 0.4 mg/dL Normal 0.1-0.9 [facility] Comment on above: Performed By: #### 2 084609 #### [facility] [address] [place] [address] Globulin (S) [Mass/Vol] 3.1 g/dL Normal 1.4-4.0 [facility] Comment on above: Performed By: #### 2 [id number] #### [facility] [address] [place] [address] Protein [Mass/Vol] 7.5 g/dL Normal 6.0-7.8 [facility] Comment on above: Performed By: #### 2 [id number] #### [facility] [address] [place] [address] Lipase Levelon 08-24-2024 Lipase [Catalytic activity/Vol] 85 U/L High 13-58 [facility] Comment on above: Performed By: #### 2 [id number] #### [facility] [address] [place] [address] UA with Cult Rflxon 08-24-20 24 Bilirubin Ql (U) Negative Normal Negative [facility] Comment on above: Performed By: #### 4 [id number] ####[facility] [address] [place] [address] Clarity (U) Clear Normal Clear [facility] Comment on above: Performed By: #### 4 [id number] ####[facility] [address] [facility] [place] [address] Color (U) Light-Yellow Normal Yellow [facility] Comment on above: Result Comment: Micr oscopic readings are only performed on those samples that meet specific criteria set forth by [facility]. Performed By: #### 4 [id number] ####[facility] [address] [facility] [place] [address] Glucose Ql (U) 4+ mg/dL Abnormal Negative [facility] Comment on above: Performed By: #### 4 [id number] ####[facility] [address] [place] [address] Hemoglobin Auto test strip (U) [Mass/Vol] Negative Normal Negative [facility] Comment on above: Performed By: #### 4 [id number] ####[facility] [address] [place] [address] Ketones Auto test strip Ql (U) Negative Normal Negative [facility] Comment on above: Performed By: #### 4 [id number] ####[facility] [address] [place] [address] Leukocyte esterase Auto test strip Ql (U) Negative Normal Negative [facility] Comment on above: Performed By: #### 4 [id number] ####[facility] [address] [place] [address] Nitrite Auto test strip Ql (U) Negative Normal Negative [facility] Comment on above: Performed By: #### 4 [id number] ####[facility] [address] [place] [address] pH (U) 6.5 [pH] Invalid Interpretation Code 5.0-9.0 [facility] Comment on above: Performed By: #### 4 [id number] ####[facility] [address] [place] [address] Protein Ql (U) Negative Normal Negative [facility] Comment on above: Performed By: #### 4 [id number] ####[place] [id number] [place] [address] Specific gravity (U) [Rel density] 1.036 Invalid Interpretation Code 1.005-1.030 [facility] Comment on above: Performed By: #### 4 [id number] ####[place] [id number] Urobilinogen (U) [Mass/Vol] Negative Normal Negative [facility] Comment on above: Performed By: #### 4 [id number] ####[place] [id number] Type of Urine collection method Clean Catch Normal [facility] Comment on above: Performed By: #### 4 [id number] ####[place] [id number] URINALYSISOrdered By: SYSTEM SYSTEM on 08-24-2024 Bilirubin Ql (U) Negative Normal Negativemg/ dL [facility] UA Auto SS Clarity (U) Clear (08/24/24 3:06 PM) Normal Clear [facility] UA Auto SS Color (U) Light-Yellow 1 (08/24/24 3:06 PM) Normal Yellow [facility] Auto SS Comment on above: Interpretive Data: M icroscopic readings are only performed on those samples that meet specific criteria set forth by [facility]. Glucose Ql (U) 4+ mg/dL Invalid [...] Protein Ql (U) Negative Normal Negativemg/ dL [facility] UA Auto SS Specific gravity (U) [Rel density] 1.036 *NA* (08/24/24 3:06 PM) Invalid Interpretation Code 1.005 - 1.030 [facility] UA Auto SS Urobilinogen (U) [Mass/Vol] Negative Normal Negativemg/ dL [facility] UA Auto SS URINALYSISOrdered By: Phan sequeira on 08-24-2024 UA Spec Desc Clean Catch (08/24/24 3:06 PM) Normal [facility] UA Auto SS eGFRon 08-24-2024 eGFR 102 mL/min/1.73 m2 Normal >=59 [facility] Comment on above: Performed By: #### 1 [id number] #### [facility] [address] [place] [address] BMPon 08-14-2024 Anion gap [Moles/Vol] 11 mmol/L Normal 6-16 [facility] Comment on above: Performed By: #### 2 [id number] #### [facility] [address] [place] [address] Calcium [Mass/Vol] 9.0 mg/dL Normal 8.9-11.1 [facility] Comment on above: Performed By: #### 2 [id number] #### [facility] [address] [place] [address] Chloride [Moles/Vol] 104 mmol/L Normal 101-111 [facility] Comment on above: Performed By: #### 2 [id number] #### [facility] [address] [place] [address] CO2 [Moles/Vol] 28 mmol/L Normal 21-31 [facility] Comment on above: Performed By: #### 2 [id number] #### [facility] [address] [place] [address] Creatinine [Mass/Vol] 1.0 mg/dL Normal 0.5-1.3 [facility] Comment on above: Performed By: #### 2 [id number] #### [facility] [address] [place] [address] Glucose [Mass/Vol] 162 mg/dL Normal 55-199 [facility] Comment on above: Performed By: #### 2 [id number] #### [facility] [address] [place] [address] Potassium [Moles/Vol] 4.0 mmol/L Normal 3.5-5.3 [facility] Comment on above: Performed By: #### 2 [id number] #### [facility] [address] [place] [address] Sodium [Moles/Vol] 139 mmol/L Normal 135-145 [facility] Comment on above: Performed By: #### 2 [id number] #### [facility] [address] [place] [address] Urea nitrogen [Mass/Vol] 11 mg/dL Normal 5-21 [facility] Comment on above: Performed By: #### 2 [id number] #### [facility] [address] [place] [address] Urea nitrogen/Creatinine [Mass ratio] 11 No Units Normal 10-20 [facility] Comment on above: Performed By: #### 2 [id number] #### [facility] [address] [place] [address] CBC w/ Auto Diffon 4 Basophils/100 WBC (Bld) 1.0 % Normal 0.0-2.0 [facility] Comment on above: Performed By: #### 2 [id number] #### [facility] [address] [place] [address] Basophils/Leukocytes Auto (Bld) [Pure # fraction] 0.1 E9/L Normal 0.0-0.2 [facility] Comment on above: Performed By: #### 2 [id number] #### [facility] [address] [place] [address] Eosinophils (Bld) [#/Vol] 0.1 E9/L Normal 0.0-0.5 [facility] Comment on above: Performed By: #### 2 [id number] #### [facility] [address] [place] [address] Eosinophils/100 WBC (Bld) 2.1 % Normal 0.0-8.0 [facility] Comment on above: Performed By: #### 2 [id number] #### [facility] [address] [place] [address] Erythrocyte distribution width (RBC) [Ratio] 14.1 % Normal 10.9-14.2 [facility] Comment on above: Performed By: #### 2 [id number] #### [facility] [address] [place] [address] Hematocrit (Bld) [Volume fraction] 40.8 % Normal 34.0-46.0 [facility] Comment on above: Performed By: #### 2 [id number] #### [facility] [address] [place] [address] Hemoglobin (Bld) [Mass/Vol] 13.9 g/dL Normal 12.0-16.0 [facility] Comment on above: Performed By: #### 2 [id number] #### [facility] [address] [place] [address] Lymphocytes (Bld) [#/Vol] 2.5 E9/L Normal 1.0-4.0 [facility] Comment on above: Performed By: #### 2 [id number] #### [facility] [address] [place] [address] Lymphocytes/100 WBC (Bld) 35.8 % Normal 14.0-50.0 [facility] Comment on above: Performed By: #### 2 [id number] #### [facility] [address] [place] [address] MCH (RBC) [Entitic mass] 29.2 pg Normal 27.0-34.0 [facility] Comment on above: Performed By: #### 2 [id number] #### [facility] [address] [place] [address] MCHC (RBC) [Mass/Vol] 34.0 g/dL Normal 31.4-36.0 [facility] Comment on above: Performed By: #### 2 [id number] #### [facility] [address] [place] [address] MCV (RBC) [Entitic vol] 86.1 fL Normal 80.0-100.0 [facility] Comment on above: Performed By: #### 2 [id number] #### [facility] [address] [place] [address] Monocytes (Bld) [#/Vol] 0.4 E9/L Normal 0.2-1.0 [facility] Comment on above: Performed By: #### 2 [id number] #### [facility] [address] [place] [address] Neutrophils (Bld) [#/Vol] 3.8 E9/L Normal 2.0-7.5 [facility] Comment on above: Performed By: #### 2 [id number] #### [facility] [address] [place] [address] Neutrophils/100 WBC (Bld) 54.8 % Normal 36.0-75.0 [facility] Comment on above: Performed By: #### 2 [id number] #### [facility] [address] [place] [address] Platelet 290.0 E9/L Normal 150.0-500.0 [facility] Comment on above: Performed By: #### 2 [id number] #### [facility] [address] [place] [address] Platelet mean volume (Bld) [Entitic vol] 7.9 fL Normal 6.4-10.8 [facility] Comment on above: Performed By: #### 2 [id number] #### [facility] [address] [place] [address] RBC (Bld) [#/Vol] 4.7 E12/L Normal 4.3-5.9 [facility] Comment on above: Performed By: #### 2 [id number] #### [facility] [address] [place] [address] WBC corrected for nucl RBC Auto (Bld) [#/Vol] 6.9 E9/L Normal 4.0-11.0 [facility] Comment on above: Performed By: #### 2 [id number] #### [facility] [address] [place] [address] CHEMISTRYOrdered By: Lab ROP User on 08-14-2024 Glucose [Mass/Vol] 217 mg/dL High 55 - 99 mg/dL [facility] Subsection Comment on above: Result Comment: Hayden us RN/ POC Device SN [id number] 1 Invalid Interpretation Code [facility] POC Subsection POC User ID [id number] 1 Invalid Interpretation Code [facility] POC Subsection POC Username NEHAL HARRIS Invalid Interpretation Code [facility] POC Subsection Glucose [Mass/Vol] 177 mg/dL High 55 - 99 mg/dL [facility] POC Subsection Comment on above: Result Comment: Hayden us RN/ POC Device SN [id number] 1 Invalid Interpretation Code [facility] POC Subsection POC User ID [id number] 1 Invalid Interpretation Code [facility] POC Subsection POC Username MINA MCMILLAN Invalid Interpretation Code [facility] POC Subsection Glucose [Mass/Vol] 160 mg/dL High 55 - 99 mg/dL [facility] POC Subsection Comment on above: Result Comment: Hayden us RN/ POC Device SN [id number] 1 Invalid Interpretation Code [facility] POC Subsection POC User ID [id number] 1 Invalid Interpretation Code [facility] POC Subsection [...] 07-25 Glucose [Mass/Vol] 217 mg/dL High 55-99 [facility] Comment on above: Result Comment: Hayden ODOM Performed By: #### 2 [id number] #### [facility] [address] [place] [address] Glucose [Mass/Vol] 177 mg/dL High 55-99 [facility] Comment on above: Result Comment: Hayden ODOM Performed By: #### 2 [id number] #### [facility] [address] [place] [address] Glucose [Mass/Vol] 160 mg/dL High 55-99 [facility] Comment on above: Result Comment: Hayden ODOM Performed By: #### 2 [id number] #### [facility] [address] [place] [address] HEMATOLOGYOrdered By: SYSTEM SYSTEM on 08-14-2024 Basophils/100 [...] 08-14-2024 Inpatient Clinical Summary Inpatient Clinical Summary [address] [address] Clinical Summary Person Information: Name: GAEL RUBY Age: 29 Years : 1995 Sex: Female PCP: YOSSI GOLDEN MD Marital Status: Phone: Race: White Ethnicity: Non- or Language: [place] Visit Id: Visit Reason: Nausea; Abdominal pain; SEVER AB PAIN/[place]/V Speciality: Acuity: Enc Type: Observation Med Service: Medical Arrival: 08/13/2024 08:54:31 Discharge: Dispo Type: Admitted as IP to this Hosp Address: [address] [place] [id number] Provider Notes: Diagnosis: 2:Diabetes; 3:Factor V Leiden; [...] Attending Physician: Beatriz GREEN MD Consulting Physician: Beto GREWAL, Aly Whitten Referring Physician: Follow up: Type Location Start [facility] Surgery [facility] Surgical Services 09/02/2024 2:15 PM 09/02/2024 2:25 PM Confirmed [facility] Follow Up [facility] 09/10/2024 12:00 PM 09/10/2024 12:15 PM Confirmed Patient Education Information: Normal [facility] Inpatient Patient Summaryon 08-14-2024 Inpatient Patient Summary Inpatient Patient Summary [address] [address] Patient Discharge Instructions PERSON INFORMATION Name: GAEL RUBY Date of : 1995 Current Date: 08/14/2024 [...] a nearby participating provider. Type Location Start [facility] Surgery [facility] 09/02/2024 2:15 PM 09/02/2024 2:25 PM Confirmed [facility] Follow Up [facility] 09/10/2024 12:00 PM 09/10/2024 12:15 PM Confirmed Comment: IFLORI KIMBERLY R, have received the attached patient [...] as needed abdominal pain/cramps. Refills: 0., lot: [id number] exp: 11/18 Last Dose: ___Next Dose: ___ [...] day. hydrOXYz (more content not included)... Normal [facility] Interdisciplinary Note - Augusto e Manageron 08-14-2024 Interdisciplinary Note - Instructional Support Technician Interdisciplinary Note - Instructional Support Technician SW spoke with patient in room. No [...] updated, and SW contact information provided. Normal [facility] Comment on above: Result Comment: Elec tronically Signed By: Marilynn MAY, Tracy\.br\Date and Time Signed: 08/14/24 09:10 EST Patient Education - Texton 1 10-14-2023 Patient Education - Text Patient Education - Text [facility] eGFRon 08-14-2024 eGFR 78 mL/min/1.73 m2 Normal >=59 [facility] Comment on above: Performed By: #### 1 [id number] #### [facility] [address] [place] [address] B hCG Qualon 08-13-2024 Beta HCG ( test) Ql Negative [facility] Comment on above: Performed By: #### 2 [id number] #### [facility] [address] [place] [address] BMPon 08-13-2024 Anion gap [Moles/Vol] 14 mmol/L Normal 6-16 [facility] Comment on above: Performed By: #### 2 [id number] #### [facility] [address] [place] [address] Calcium [Mass/Vol] 9.5 mg/dL Normal 8.9-11.1 [facility] Comment on above: Performed By: #### 2 [id number] #### [facility] [address] [place] [address] Chloride [Moles/Vol] 105 mmol/L Normal 101-111 [facility] Comment on above: Performed By: #### 2 [id number] #### [facility] [address] [place] [address] CO2 [Moles/Vol] 24 mmol/L Normal 21-31 [facility] Comment on above: Performed By: #### 2 [id number] #### [facility] [address] [place] [address] Creatinine [Mass/Vol] 0.8 mg/dL Normal 0.5-1.3 [facility] Comment on above: Performed By: #### 2 [id number] #### [facility] [address] [place] [address] Glucose [Mass/Vol] 244 mg/dL High 55-199 [facility] Comment on above: Performed By: #### 2 [id number] #### [facility] [address] [place] [address] Potassium [Moles/Vol] 4.0 mmol/L Normal 3.5-5.3 [facility] Comment on above: Performed By: #### 2 908010 #### [facility] [address] [place] [address] Sodium [Moles/Vol] 139 mmol/L Normal 135-145 [facility] Comment on above: Performed By: #### 2 [id number] #### [facility] [address] [place] [address] Urea nitrogen [Mass/Vol] 11 mg/dL Normal 5-21 [facility] Comment on above: Performed By: #### 2 [id number] #### [facility] [address] [place] [address] Urea nitrogen/Creatinine [Mass ratio] 14 No Units Normal 10-20 [facility] Comment on above: Performed By: #### 2 [id number] #### [facility] [address] [place] [address] CBC w/ Auto Diffon 4 Basophils/100 WBC (Bld) 1.2 % Normal 0.0-2.0 [facility] Comment on above: Performed By: #### 2 [id number] #### [facility] [address] [place] [address] Basophils/Leukocytes Auto (Bld) [Pure # fraction] 0.1 E9/L Normal 0.0-0.2 [facility] Comment on above: Performed By: #### 2 [id number] #### [facility] [address] [place] [address] Eosinophils (Bld) [#/Vol] 0.1 E9/L Normal 0.0-0.5 [facility] Comment on above: Performed By: #### 2 [id number] #### [facility] [address] [place] [address] Eosinophils/100 WBC (Bld) 1.3 % Normal 0.0-8.0 [facility] Comment on above: Performed By: #### 2 [id number] #### [facility] [address] [place] [address] Erythrocyte distribution width (RBC) [Ratio] 13.6 % Normal 10.9-14.2 [facility] Comment on above: Performed By: #### 2 [id number] #### [facility] [address] [place] [address] Hematocrit (Bld) [Volume fraction] 42.3 % Normal 34.0-46.0 [facility] Comment on above: Performed By: #### 2 [id number] #### [facility] [address] [place] [address] Hemoglobin (Bld) [Mass/Vol] 15.1 g/dL Normal 12.0-16.0 [facility] Comment on above: Performed By: #### 2 [id number] #### [facility] [address] [place] [address] Lymphocytes (Bld) [#/Vol] 2.5 E9/L Normal 1.0-4.0 [facility] Comment on above: Performed By: #### 2 904630 #### [facility] [address] [place] [address] Lymphocytes/100 WBC (Bld) 24.8 % Normal 14.0-50.0 [facility] Comment on above: Performed By: #### 2 [id number] #### [facility] [address] [place] [address] MCH (RBC) [Entitic mass] 30.7 pg Normal 27.0-34.0 [facility] Comment on above: Performed By: #### 2 205157 #### [facility] [address] [place] [address] MCHC (RBC) [Mass/Vol] 35.6 g/dL Normal 31.4-36.0 [facility] Comment on above: Performed By: #### 2 [id number] #### [facility] [address] [place] [address] MCV (RBC) [Entitic vol] 86.1 fL Normal 80.0-100.0 [facility] Comment on above: Performed By: #### 2 856890 #### [facility] [address] [place] [address] Monocytes (Bld) [#/Vol] 0.4 E9/L Normal 0.2-1.0 [facility] Comment on above: Performed By: #### 2 [id number] #### [facility] [address] [place] [address] Neutrophils (Bld) [#/Vol] 7.1 E9/L Normal 2.0-7.5 [facility] Comment on above: Performed By: #### 2 [id number] #### [facility] [address] [place] [address] Neutrophils/100 WBC (Bld) 68.8 % Normal 36.0-75.0 [facility] Comment on above: Performed By: #### 2 818029 #### [facility] [address] [place] [address] Platelet 342.0 E9/L Normal 150.0-500.0 [facility] Comment on above: Performed By: #### 2 117301 #### [facility] [address] [place] [address] Platelet mean volume (Bld) [Entitic vol] 8.7 fL Normal 6.4-10.8 [facility] Comment on above: Performed By: #### 2 [id number] #### [facility] [address] [place] [address] RBC (Bld) [#/Vol] 4.9 E12/L Normal 4.3-5.9 [facility] Comment on above: Performed By: #### 2 [id number] #### [facility] [address] [place] [address] WBC corrected for nucl RBC Auto (Bld) [#/Vol] 10.3 E9/L Normal 4.0-11.0 [facility] Comment on above: Performed By: #### 2 488100 #### [facility] [address] [place] [address] CHEMISTRYOrdered By: SYSTEM SYSTEM on 08-13-2024 Albumin [...] 07-25 Glucose [Mass/Vol] 166 mg/dL High 55-99 [facility] Comment on above: Result Comment: Hayden us RN/ Performed By: #### 2 [id number] #### [facility] [address] [place] [address] Glucose [Mass/Vol] 115 mg/dL High 55-99 [facility] Comment on above: Result Comment: Hayden us RN/MD Performed By: #### 2 [id number] #### [facility] [address] [place] [address] ED Clinical Summaryon 2023 ED Clinical Summary ED Clinical Summary [address] [address] ED Clinical Summary Person Information [facility] Age[facility] 29 Years : 1995 Sex: Female Language: [place] PCP: YOSSI GOLDEN MD Marital Status: Phone: MRN: [id number] Visit Id: Visit Reason: Nausea; Abdominal pain; SEVER AB PAIN/[place]/V Speciality: Acuity: 3 Enc Type: Observation Med Service: Medical Arrival: 08/13/2024 08:54:31 Discharge: LOS: 000 06:28 Checkin: 08/13/2024 08:54:31 Checkout: 08/13/2024 15:22:06 Dispo Type: Admitted as IP to this [facility] EVENTS: Event Name Event Status Request Date/Time [...] 08/13/2024 15:22:06 08/13/2024 15:22:06 08/13/2024 15:22:06 ADDRESS: [address] [place] [phone] PHYS DOC NOTES: MEDICAL INFORMATION: Prescriptions Given: [...] anxiety disorder); 5:GERD (gastroesophageal reflux disease) Normal [facility] ED Note-Physicianon 08-13-20 ED Note-Physician ED Note-Physician [...] symptoms. I discussed the case with her dry wall applicator and decision was made to admit her [...] Plan Patient (more content not included)... Normal [facility] Comment on above: Result Comment: Elec tronically Signed By: Cameron Conklin DO\.br\Date and Time Signed: 08/13/24 18:15 EST ED Patient Education Noteon 08-13-2024 ED Patient Education Note ED Patient Education Note Normal [facility] ED Patient Summaryon ED Patient Summary ED Patient Summary [address] [place] [address] Patient Discharge Instructions Person Information Name: GAEL RUBY Age: 29 Years Arrival Date: 08/13/2024 08:54:31 Discharge Diagnosis: 2:Diabetes; 3:Factor V Leiden; 4:LINA (generalized anxiety disorder); 5:GERD (gastroesophageal reflux disease) Primary Care Physician: YOSSI GOLDEN MD Provider Information Primary Provider: Cameron Conklin DO Advanced Hydrostatic Tubing Tester:None The exam and treatment you received in the Emergency Department were for an urgent problem and are not intended as complete care. It is important that you follow up with a doctor, nurse practitioner, or physician???s occupational therapist's assistant for ongoing care. If your symptoms [...] opioids can be used to help relieve wfiwquqy-no-mahsex pain and are often prescribed following a [...] be struggling with addiction, tell your health care support representative and ask for guidance or call [facility]???S National Helpline at 8-500-047-OXGQ. (more content not included)... Normal [facility] Extra Blueon 08-13-2024 Tube Collected Plasma Yes Invalid Interpretation Code [facility] Comment on above: Performed By: #### 1 [id number] #### [facility] [address] [place] [address] HEMATOLOGYOrdered By: SYSTEM SYSTEM on 08-13-2024 Basophils/100 [...] 08-13-2024 Albumin [Mass/Vol] 4.3 g/dL Normal 3.3-5.0 [facility] Comment on above: Performed By: #### 2 [id number] #### [facility] [address] [place] [address] Albumin/Globulin (S) [Mass conc ratio] 1.4 Normal 1.1-2.2 [facility] Comment on above: Performed By: #### 2 633859 #### [facility] [address] [place] [address] ALP [Catalytic activity/Vol] 85 Int._Unit/L Normal 21-98 [facility] Comment on above: Performed By: #### 2 [id number] #### [facility] [address] [place] [address] ALT No additional P-5'-P [Catalytic activity/Vol] 34 Int._Unit/L Normal 6-46 [facility] Comment on above: Performed By: #### 2 [id number] #### [facility] [address] [place] [address] AST [Catalytic activity/Vol] 29 Int._Unit/L Normal 5-43 [facility] [facility] Comment on above: Performed By: #### 2 [id number] #### [facility] [address] [place] [address] Bilirubin [Mass/Vol] 0.4 mg/dL Normal 0.0-1.1 [facility] Comment on above: Performed By: #### 2 [id number] #### [facility] [address] [place] [address] Bilirubin.direct [Mass/Vol] 0.0 mg/dL Normal 0.0-0.4 [facility] Comment on above: Performed By: #### 2 [id number] #### [facility] [address] [place] [address] Bilirubin.indirect [Mass or moles/Vol] 0.4 mg/dL Normal 0.1-0.9 [facility] Comment on above: Performed By: #### 2 [id number] #### [facility] [address] [place] [address] Globulin (S) [Mass/Vol] 3.1 g/dL Normal 1.4-4.0 [facility] Comment on above: Performed By: #### 2 [id number] #### [facility] [address] [place] [address] Protein [Mass/Vol] 7.4 g/dL Normal 6.0-7.8 [facility] Comment on above: Performed By: #### 2 [id number] #### [facility] [address] [place] [address] Lipase Levelon 08-13-2024 Lipase [Catalytic activity/Vol] 80 U/L High 13-58 [facility] Comment on above: Performed By: #### 2 [id number] #### [facility] [address] [place] [address] SEROLOGYOrdered By: Mouna vazquez on 08-13-2024 Beta HCG ( test) Ql Negative (08/13/24 9:31 AM) Normal [facility] Man Sero UA with Cult Rflxon 08-13-20 24 Bilirubin Ql (U) Negative Normal Negative [facility] Comment on above: Performed By: #### 4 [id number] #### [facility] [address] [place] [address] Clarity (U) Clear Normal Clear [facility] Comment on above: Performed By: #### 4 [id number] #### [facility] [address] [place] [address] Color (U) Colorless Abnormal Yellow [facility] Comment on above: Result Comment: Micr oscopic readings are only performed on those samples that meet specific criteria set forth by [facility]. Performed By: #### 4 [id number] #### [facility] [address] [place] [address] Glucose Ql (U) 4+ mg/dL Abnormal Negative [facility] Comment on above: Performed By: #### 4 [id number] #### [facility] [address] [place] [address] Hemoglobin Auto test strip (U) [Mass/Vol] Negative Normal Negative [facility] Comment on above: Performed By: #### 4 [id number] #### [facility] [address] [place] [address] Ketones Auto test strip Ql (U) Negative Normal Negative [facility] Comment on above: Performed By: #### 4 [id number] #### [facility] [address] [place] [address] Leukocyte esterase Auto test strip Ql (U) Negative Normal Negative [facility] Comment on above: Performed By: #### 4 [id number] #### [facility] [address] [place] [address] Nitrite Auto test strip Ql (U) Negative Normal Negative [facility] Comment on above: Performed By: #### 4 [id number] #### [facility] [address] [place] [address] pH (U) 5.5 [pH] Invalid Interpretation Code 5.0-9.0 [facility] Comment on above: Performed By: #### 4 [id number] #### [facility] [address] [place] [address] Protein Ql (U) Negative Normal Negative [facility] Comment on above: Performed By: #### 4 [id number] #### [facility] [address] [place] [address] Specific gravity (U) [Rel density] 1.036 Invalid Interpretation Code 1.005-1.030 [facility] Comment on above: Performed By: #### 4 [id number] #### [facility] [address] [place] [address] Urobilinogen (U) [Mass/Vol] Negative Normal Negative [facility] Comment on above: Performed By: #### 4 [id number] #### [facility] [address] [place] [address] Type of Urine collection method Clean Catch Normal [facility] Comment on above: Performed By: #### 4 [id number] #### [facility] [address] [place] [address] URINALYSISOrdered By: SYSTEM SYSTEM on 08-13-2024 Bilirubin Ql (U) Negative Normal Negativemg/ dL [facility] UA Auto SS Clarity (U) Clear (08/13/24 9:22 AM) Normal Clear [facility] UA Auto SS Color (U) Colorless 1 *ABN* (08/13/24 9:22 AM) Invalid Interpretation Code Yellow [facility] UA Auto SS Comment on above: Interpretive Data: M icroscopic readings are only performed on those samples that meet specific criteria set forth by [facility]. Glucose Ql (U) 4+ mg/dL Invalid Interpretation Code Negativemg/ dL [facility] UA Auto SS Hemoglobin Auto test strip (U) [Mass/Vol] Negative Normal Negativemg/ dL [facility] UA Auto SS Ketones Auto test strip Ql (U) Negative Normal Negativemg/ dL FT UA Auto SS Leukocyte esterase Auto test strip Ql (U) Negative Normal NegativeLeu /uL FT UA Auto SS Nitrite Auto test strip Ql (U) Negative Normal Negativemg/ dL [facility] UA Auto SS pH (U) 5.5 *NA* (08/13/24 9:22 AM) Invalid Interpretation Code 5.0 - 9.0 [facility] UA Auto SS Protein Ql (U) Negative Normal Negativemg/ dL [facility] UA Auto SS Specific gravity (U) [Rel density] 1.036 *NA* (08/13/24 9:22 AM) Invalid Interpretation Code 1.005 - 1.030 [facility] UA Auto SS Urobilinogen (U) [Mass/Vol] Negative Normal Negativemg/ dL [facility] UA Auto SS URINALYSISOrdered By: Cameron Conklin on 08-13-2024 UA Spec Desc Clean Catch (08/13/24 9:22 AM) Normal [facility] UA Auto SS XR Abdomen Series w/ [...] mGy = na DAP = na Normal [facility] eGFRon 08-13-2024 eGFR 102 mL/min/1.73 m2 Normal >=59 [facility] Comment on above: Performed By: #### 1 [id number] #### [facility] [address] [place] [address] Ambulatory Visit Summaryon 1 10-10-2023 Ambulatory Visit Summary Ambulatory Visit Summary GAEL RUBY :1995 Visit Date:08/10/2024 Ambulatory Visit Instructions Your Diagnosis Abdominal pain Gastroparesis Constipation Nausea & vomiting Fatty liver Dysphagia Your Care Team Attending Physician - Aly Beverly MD Primary Care Physician - YOSSI GOLDEN MD [...] (Phenergan 25 mg Supp) Procedures Performed section (2017), section (2015), Bilateral oophorectomy, section, Cholecystectomy, Extraction of wisdom tooth, Laparoscopic hysterectomy, Laparoscopy, Tear duct, Tonsillectomy. Discharge Vitals Heart Rate (Peripheral) 87 Respiratory Rate 16 Blood Pressure 129/83 Height 172 cm Height 68 in Weight 112 kg Weight 246.917 lb BMI 37.86 What to do next Scheduled Follow-Up Appointments 2023 12:00 PM EST With: Beto GREWAL, Aly Whitten Where: [facility] [address] [place] [phone]- Medications What How Much When Instructions New prucalopride (Motegrity 2 mg oral tablet) 1 Tablets By Mouth Every day Refills: 3 Pickup at [facility] [id number] Unchanged albuterol (Albuterol (Eqv-ProAir HFA) 90 mcg/ [...] physician if questions or concerns Pharmacy Information [facility] [id number]: [address], [place] [phone] Allergies Eggs (Abdominal pain) Kiwi (unk) Latex [...] Prolap (more content not included)... Normal [facility] Gastroenterology Office/Clin ic Noteon 08-10-2024 Gastroenterology Office/Clinic Note Gastroenterology Office/Clinic Note Chief Complaint follow up to ER HPI Staff Patient is a 29 year old female who presents today for a f/u from [facility] ER. She has had multiple ER visits over the last couple weeks for the same symptoms. Abdominal pain: abdominal discomfort with associated nausea and occasional vomiting, does have constipation too. When did you first have this pain: Saturday am has been the worst. Quality (sharp, [...] we can refer to Dr. Gastelum at [facility] for evaluation of G DOROTHEA She is currently on Trulicity, started a [...] 85.8 fL (08/07/24) Chloride: 103 mmol/L (08/07/24) Webster Absolute: 0.5 E9/L (08/07/24) CO2: 26 mmol/L (08/07/24) Webster Auto: 5.7 % (08/07/24) Creatinine: 0.8 mg/dL [...] Detailed Depr (more content not included)... Normal [facility] Comment on above: Result Comment: Elec tronically Signed By: Beto GREWAL, Aly Whitten\.jarred\Date and Time Signed: 08/10/24 11:08 EST CBC w/ Auto Diffon 4 Basophils/100 WBC (Bld) 0.8 % Normal 0.0-2.0 [facility] Comment on above: Performed By: #### 2 [id number] #### [facility] [address] [place] [address] Basophils/Leukocytes Auto (Bld) [Pure # fraction] 0.1 E9/L Normal 0.0-0.2 [facility] Comment on above: Performed By: #### 2 [id number] #### [facility] [address] [place] [address] Eosinophils (Bld) [#/Vol] 0.1 E9/L Normal 0.0-0.5 [facility] Comment on above: Performed By: #### 2 [id number] #### [facility] [address] [place] [address] Eosinophils/100 WBC (Bld) 1.1 % Normal 0.0-8.0 [facility] Comment on above: Performed By: #### 2 [id number] #### [facility] [address] [place] [address] Erythrocyte distribution width (RBC) [Ratio] 13.6 % Normal 10.9-14.2 [facility] Comment on above: Performed By: #### 2 [id number] #### [facility] [address] [place] [address] Hematocrit (Bld) [Volume fraction] 44.6 % Normal 34.0-46.0 [facility] Comment on above: Performed By: #### 2 [id number] #### [facility] [address] [place] [address] Hemoglobin (Bld) [Mass/Vol] 15.2 g/dL Normal 12.0-16.0 [facility] Comment on above: Performed By: #### 2 [id number] #### [facility] [address] [place] [address] Lymphocytes (Bld) [#/Vol] 2.8 E9/L Normal 1.0-4.0 [facility] Comment on above: Performed By: #### 2 [id number] #### [facility] [address] [place] [address] Lymphocytes/100 WBC (Bld) 29.0 % Normal 14.0-50.0 [facility] Comment on above: Performed By: #### 2 [id number] #### [facility] [address] [place] [address] MCH (RBC) [Entitic mass] 29.3 pg Normal 27.0-34.0 [facility] Comment on above: Performed By: #### 2 [id number] #### [facility] [address] [place] [address] MCHC (RBC) [Mass/Vol] 34.1 g/dL Normal 31.4-36.0 [facility] Comment on above: Performed By: #### 2 [id number] #### [facility] [address] [place] [address] MCV (RBC) [Entitic vol] 85.8 fL Normal 80.0-100.0 [facility] Comment on above: Performed By: #### 2 [id number] #### [facility] [address] [place] [address] Monocytes (Bld) [#/Vol] 0.5 E9/L Normal 0.2-1.0 [facility] Comment on above: Performed By: #### 2 [id number] #### [facility] [address] [place] [address] Neutrophils (Bld) [#/Vol] 6.1 E9/L Normal 2.0-7.5 [facility] Comment on above: Performed By: #### 2 [id number] #### [facility] [address] [place] [address] Neutrophils/100 WBC (Bld) 63.4 % Normal 36.0-75.0 [facility] Comment on above: Performed By: #### 2 [id number] #### [facility] [address] [place] [address] Platelet 360.0 E9/L Normal 150.0-500.0 [facility] Comment on above: Performed By: #### 2 [id number] #### [facility] [address] [place] [address] Platelet mean volume (Bld) [Entitic vol] 8.1 fL Normal 6.4-10.8 [facility] Comment on above: Performed By: #### 2 [id number] #### [facility] [address] [place] [address] RBC (Bld) [#/Vol] 5.2 E12/L Normal 4.3-5.9 [facility] Comment on above: Performed By: #### 2 [id number] #### [facility] [address] [place] [address] WBC corrected for nucl RBC Auto (Bld) [#/Vol] 9.5 E9/L Normal 4.0-11.0 [facility] Comment on above: Performed By: #### 2 [id number] #### [facility] [address] [place] [address] CHEMISTRYOrdered By: SYSTEM SYSTEM on 08-07-2024 Albumin [...] 08-07-2024 Albumin [Mass/Vol] 4.5 g/dL Normal 3.3-5.0 [facility] Comment on above: Performed By: #### 2 [id number] #### [facility] [address] [place] [address] Albumin/Globulin (S) [Mass conc ratio] 1.5 Normal 1.1-2.2 [facility] Comment on above: Performed By: #### 2 [id number] #### [facility] [address] [place] [address] ALP [Catalytic activity/Vol] 82 Int._Unit/L Normal 21-98 [facility] Comment on above: Performed By: #### 2 [id number] #### [facility] [address] [place] [address] ALT No additional P-5'-P [Catalytic activity/Vol] 35 Int._Unit/L Normal 6-46 [facility] Comment on above: Performed By: #### 2 [id number] #### [facility] [address] [place] [address] Anion gap [Moles/Vol] 13 mmol/L Normal 6-16 [facility] Comment on above: Performed By: #### 2 238573 #### [facility] [address] [place] [address] AST [Catalytic activity/Vol] 34 Int._Unit/L Normal 5-43 [facility] Comment on above: Performed By: #### 2 [id number] #### [facility] [address] [place] [address] Bilirubin [Mass/Vol] 0.5 mg/dL Normal 0.0-1.1 [facility] Comment on above: Performed By: #### 2 [id number] #### [facility] [address] [place] [address] Calcium [Mass/Vol] 9.9 mg/dL Normal 8.9-11.1 [facility] Comment on above: Performed By: #### 2 [id number] #### [facility] [address] [place] [address] Chloride [Moles/Vol] 103 mmol/L Normal 101-111 [facility] Comment on above: Performed By: #### 2 124408 #### [facility] [address] [place] [address] CO2 [Moles/Vol] 26 mmol/L Normal 21-31 [facility] Comment on above: Performed By: #### 2 [id number] #### [facility] [address] [place] [address] Creatinine [Mass/Vol] 0.8 mg/dL Normal 0.5-1.3 [facility] Comment on above: Performed By: #### 2 600692 #### [facility] [address] [place] [address] Globulin (S) [Mass/Vol] 3.1 g/dL Normal 1.4-4.0 [facility] Comment on above: Performed By: #### 2 [id number] #### [facility] [address] [place] [address] Glucose [Mass/Vol] 199 mg/dL Normal 55-199 [facility] Comment on above: Performed By: #### 2 [id number] #### [facility] [address] [place] [address] Potassium [Moles/Vol] 4.4 mmol/L Normal 3.5-5.3 [facility] Comment on above: Performed By: #### 2 699054 #### [facility] [address] [place] [address] Protein [Mass/Vol] 7.6 g/dL Normal 6.0-7.8 [facility] Comment on above: Performed By: #### 2 360926 #### [facility] [address] [place] [address] Sodium [Moles/Vol] 138 mmol/L Normal 135-145 [facility] Comment on above: Performed By: #### 2 [id number] #### [facility] [address] [place] [address] Urea nitrogen [Mass/Vol] 17 mg/dL Normal 5-21 [facility] Comment on above: Performed By: #### 2 525113 #### [facility] [address] [place] [address] Urea nitrogen/Creatinine [Mass ratio] 21 No Units High 10-20 [facility] Comment on above: Performed By: #### 2 [id number] #### [facility] [address] [place] [address] ED Clinical Summaryon 2023 ED Clinical Summary ED Clinical Summary [address] [address] ED Clinical Summary Person Information Name: GAEL RUBY/New_Terence Age: 29 Years : 1995 Sex: Female Language: [place] PCP: YOSSI GOLDEN MD Marital Status: Visit [...] 08/07/2024 12:03:12 08/07/2024 12:03:12 08/07/2024 12:03:12 ADDRESS: [address] [place] [id number] PHYS DOC NOTES: MEDICAL INFORMATION: Prescriptions Given: New Medications [facility] [id number], [address] [place] [phone], [phone] dicyclomine (dicyclomine 20 mg Tab) 1 Tablets By Mouth 3 times a day for 7 Days. Refills: 0. Medications to Continue Taking That Have Changed [facility] [id number], [address], [place] [id number], [phone] START: ondansetron (ondansetron 4 mg Dis Tab) [...] Follow up: With: Address: [facility] [address], [address] [phone] Business (1) In 3 days 08/10/2024 With: Address: When: YOSSI GOLDEN [address], [place] [phone] Business (1) In 3 days DIAGNOSIS: Gastroparesis Normal [facility] ED Clinical Summary ED Clinical Summary [address] [address] ED Clinical Summary Person Information [facility] Age: 29 Years : 1995 Sex: Female Language: [place] PCP: YOSSI GOLDEN MD Marital Status: MRN: [id number] Visit Id: Visit Reason: Nausea and vomiting; [...] 08/07/2024 00:04:34 08/07/2024 00:04:34 08/07/2024 00:04:34 ADDRESS: [address] [place] [id number] PHYS DOC NOTES: MEDICAL INFORMATION: Prescriptions Given: [...] PATIENT EDUCATION INFORMATION: Instructions: Abdominal Pain, Adult, Xmxc-[id number] Follow up: With: Address: When: Aly [address], [address], [address] [phone] Business (1) In 3 days 08/09/2024 Comments: Call to schedule a follow-up appointment with your dry wall applicator in the next 2 to 3 days. Return to ED with any new or worsening symptoms. With: Address: When: YOSSI GOLDEN [address] [place] [phone] Business (1) In 3 days DIAGNOSIS: Chronic abdominal pain; Gastroparesis; Other chronic pain Normal [facility] ED Note-Physicianon 08-07-20 ED Note-Physician ED Note-Physician [...] day(s), # 21 tab(s), Refills(s) 0, Pharmacy: [facility] [id number], 172, cm, 08/07/24 9:14:00 EST, Height/Length Dosing, [...] day(s), # 10 tab(s), Refills(s) 0, Pharmacy: [facility] [id number], 172, cm, 08/07/24 9:14:00 EST, Height/Length Dosing, 111.2, kg, 08/07/24 9:14:00 EST, Weight Dosing pantoprazole, 40 mg = 10 mL, Injection, IV Push, Once, Stop date 08/07/24 9:30:00 EST, STAT, Start date 08/07/24 9:30:00 EST, 08/07/24 9:30:00 EST pantoprazole, 40 mg = 1 tab(s), Oral, Daily, X 30 day(s), # 30 tab(s), Refills(s) 0, Pharmacy: [facility] [id number], 172, cm, 08/07/24 9:14:00 EST, Height/Length Dosing, [...] mg IV Inj, 40 mg, IV Push [id number] [F] 25 mg + Sodium Chloride 0.9% [...] Beverly In 3 days 08/10/2024 EST [address], [address] [phone] Business (1) Additional Instructions: YOSSI GOLDEN In [address] [place] [address] Business (more content not included)... Normal [facility] Comment on above: Result Comment: Elec tronically Signed By: Phan Sandy DO\.jarred\Date and Time Signed: 08/07/24 11:53 EST ED Note-Physician ED Note-Physician Basic Information Time Seen: Dwight ESCOBAR, Mouna Gomez 08/06/2024 19:11 Chief Complaint pt arrives for c/o hx of gastroparesis. pt states abd pain n/v started this morning. states she was seen at [facility] History of Present Illness Patient is a 29-year-old female with a history of type 2 diabetes, anxiety, GERD, status post cholecystectomy, and gastroparesis who presents to the ED with gastroparesis symptoms. Patient states she developed abdominal pain and nausea and vomiting this morning around 0600. She states she was seen at the [facility] ED today as she lives near there. Patient states they did lab work and gave her a GI cocktail and Compazine. She notes no relief in symptoms following this. Patient states she sees a dry wall applicator and is on Reglan and MiraLAX. She states she has not been taking MiraLAX recently and feels constipated. Patient states she had a bowel movement last night but it was hard and small in nature. She describes the symptoms she is feeling now to be consistent with gastroparesis. Patient states she sees an vacuum pan tender who recently changed her medications to Lantus, [...] with gastroparesis symptoms. She was seen at [facility] earlier today and was given a [...] solution 50 (more content not included)... Normal [facility] Comment on above: Result Comment: Elec tronically Signed By: Mouna Quintanilla PA-C\.br\Date and Time Signed: 08/06/24 23:54 EST\.br\Electronically Co-Signed By: Cameron Conklin DO\.br\Date and Time Co-Signed: 08/07/24 00:04 EST ED Patient Education Noteon 08-07-2024 ED Patient Education Note ED Patient Education Note Normal [facility] ED Patient Summaryon 024 ED Patient Summary ED Patient Summary [place] [id number] Patient Discharge Instructions Person Information Name: GAEL RUBY Age: 29 Years Arrival Date: 08/07/2024 09:05:40 Discharge Diagnosis: Gastroparesis Primary Care Physician: YOSSI GOLDEN MD Provider Information Primary Provider: Phan Sandy DO Advanced Hydrostatic Tubing Tester:None The exam and treatment you received in the Emergency Department were for an urgent problem and are not intended as complete care. It is important that you follow up with a doctor, nurse practitioner, or physician???s occupational therapist's assistant for ongoing care. If your symptoms [...] Follow-up Instructions: With: Address: When: Aly Beverly [address] [place] [address], [address], [address] [phone] Business (1) In 3 days 08/10/2024 With: Address: When: YOSSI GOLDEN [address], [place] [phone] Business (1) In 3 days In the event that this physician does not participate in your insurance network, please consult with your insurance company to find a nearby participating provider. Patient Education Materials: A MESSAGE TO ALL PATIENTS REGARDING OPIOIDS PRESCRIPTION OPIOIDS: WHAT YOU NEED TO KNOW Prescription opioids can be used to help relieve uhlxehfy-uw-vpjari pain and are often prescribed following a [...] ??? If (more content not included)... Normal [facility] ED Patient Summary ED Patient Summary [address] [address] Patient Discharge Instructions Person Information Name: GAEL RUBY Age: 29 Years Arrival Date: 08/06/2024 19:01:14 Discharge Diagnosis: Chronic abdominal pain; Gastroparesis; Other chronic pain Primary Care Physician: YOSSI GOLDEN MD Provider Information Primary Provider: Cameron Conklin DO Advanced Hydrostatic Tubing Tester:Mouna Quintanilla PA-C The exam and treatment you received in the Emergency Department were for an urgent problem and are not intended as complete care. It is important that you follow up with a doctor, nurse practitioner, or physician???s occupational therapist's assistant for ongoing care. If your symptoms [...] Follow-up Instructions: With: Address: When: Aly Beverly [address] [place] [address], [facility] [address], [address] [phone] Business (1) In 3 days 08/09/2024 Comments: Call to schedule a follow-up appointment with your dry wall applicator in the next 2 to 3 days. Return to ED with any new or worsening symptoms. With: Address: When: YOSSI GOLDEN [address], [place] [phone] Business (1) In 3 days In the event that this physician does not participate in your insurance network, please consult with your insurance company to find a nearby participating provider. Patient Education Materials: Abdominal Pain, Adult, Dyab-ej-Mebq A MESSAGE TO ALL PATIENTS REGARDING OPIOIDS PRESCRIPTION OPIOIDS: WHAT YOU NEED TO KNOW Prescription opioids can be used to help relieve lsvagdwy-ft-vhkmhn pain and are often prescribed following a [...] program or (more content not included)... Normal [facility] Extra Blueon 08-07-2024 Tube Collected Plasma Yes Invalid Interpretation Code [facility] Comment on above: Performed By: #### 1 [id number] #### [facility] [address] [place] [address] HEMATOLOGYOrdered By: SYSTEM SYSTEM on 08-07-2024 Basophils/100 [...] Lipase [Catalytic activity/Vol] 78 U/L High 13-58 [facility] Comment on above: Performed By: #### 2 [id number] #### [facility] [address] [place] [address] XR Abdomen Series w/ Chest 1 Viewon [...] mGy = na DAP = na Normal [facility] eGFRon 08-07-2024 eGFR 102 mL/min/1.73 m2 Normal >=59 [facility] Comment on above: Performed By: #### 1 [id number] #### [facility] [address] [place] [address] BMPon 08-06-2024 Anion gap [Moles/Vol] 15 mmol/L Normal 6-16 [facility] Comment on above: Performed By: #### 2 [id number] #### [facility] [address] [place] [address] Calcium [Mass/Vol] 9.4 mg/dL Normal 8.9-11.1 [facility] Comment on above: Performed By: #### 2 [id number] #### [facility] [address] [place] [address] Chloride [Moles/Vol] 102 mmol/L Normal 101-111 [facility] Comment on above: Performed By: #### 2 [id number] #### [facility] [address] [place] [address] CO2 [Moles/Vol] 23 mmol/L Normal 21-31 [facility] Comment on above: Performed By: #### 2 [id number] #### [facility] [address] [place] [address] Creatinine [Mass/Vol] 0.9 mg/dL Normal 0.5-1.3 [facility] Comment on above: Performed By: #### 2 [id number] #### [facility] [address] [place] [address] Glucose [Mass/Vol] 287 mg/dL High 55-199 [facility] Comment on above: Performed By: #### 2 [id number] #### [facility] [address] [place] [address] Potassium [Moles/Vol] 4.1 mmol/L Normal 3.5-5.3 [facility] Comment on above: Performed By: #### 2 [id number] #### [facility] [address] [place] [address] Sodium [Moles/Vol] 136 mmol/L Normal 135-145 [facility] Comment on above: Performed By: #### 2 [id number] #### [facility] [address] [place] [address] Urea nitrogen [Mass/Vol] 15 mg/dL Normal 5-21 [facility] Comment on above: Performed By: #### 2 [id number] #### [facility] [address] [place] [address] Urea nitrogen/Creatinine [Mass ratio] 17 No Units Normal 10-20 [facility] Comment on above: Performed By: #### 2 [id number] #### [facility] [address] [place] [address] CBC w/ Auto Diffon 4 Basophils/100 WBC (Bld) 1.6 % Normal 0.0-2.0 [facility] Comment on above: Performed By: #### 2 [id number] #### [facility] [address] [place] [address] Basophils/Leukocytes Auto (Bld) [Pure # fraction] 0.2 E9/L Normal 0.0-0.2 [facility] Comment on above: Performed By: #### 2 [id number] #### [facility] [address] [place] [address] Eosinophils (Bld) [#/Vol] 0.1 E9/L Normal 0.0-0.5 [facility] Comment on above: Performed By: #### 2 [id number] #### [facility] [address] [place] [address] Eosinophils/100 WBC (Bld) 1.0 % Normal 0.0-8.0 [facility] Comment on above: Performed By: #### 2 [id number] #### [facility] [address] [place] [address] Erythrocyte distribution width (RBC) [Ratio] 13.9 % Normal 10.9-14.2 [facility] Comment on above: Performed By: #### 2 [id number] #### [facility] [address] [place] [address] Hematocrit (Bld) [Volume fraction] 43.6 % Normal 34.0-46.0 [facility] Comment on above: Performed By: #### 2 [id number] #### [facility] [address] [place] [address] Hemoglobin (Bld) [Mass/Vol] 15.1 g/dL Normal 12.0-16.0 [facility] Comment on above: Performed By: #### 2 [id number] #### [facility] [address] [place] [address] Lymphocytes (Bld) [#/Vol] 4.0 E9/L Normal 1.0-4.0 [facility] Comment on above: Performed By: #### 2 [id number] #### [facility] [address] [place] [address] Lymphocytes/100 WBC (Bld) 32.6 % Normal 14.0-50.0 [facility] Comment on above: Performed By: #### 2 [id number] #### [facility] [address] [place] [address] MCH (RBC) [Entitic mass] 29.9 pg Normal 27.0-34.0 [facility] Comment on above: Performed By: #### 2 [id number] #### [facility] [address] [place] [address] MCHC (RBC) [Mass/Vol] 34.6 g/dL Normal 31.4-36.0 [facility] Comment on above: Performed By: #### 2 [id number] #### [facility] [address] [place] [address] MCV (RBC) [Entitic vol] 86.4 fL Normal 80.0-100.0 [facility] Comment on above: Performed By: #### 2 [id number] #### [facility] [address] [place] [address] Monocytes (Bld) [#/Vol] 0.6 E9/L Normal 0.2-1.0 [facility] Comment on above: Performed By: #### 2 [id number] #### [facility] [address] [place] [address] Neutrophils (Bld) [#/Vol] 7.4 E9/L Normal 2.0-7.5 [facility] Comment on above: Performed By: #### 2 [id number] #### [facility] [address] [place] [address] Neutrophils/100 WBC (Bld) 59.9 % Normal 36.0-75.0 [facility] Comment on above: Performed By: #### 2 [id number] #### [facility] [address] [place] [address] Platelet 366.0 E9/L Normal 150.0-500.0 [facility] Comment on above: Performed By: #### 2 [id number] #### [facility] [address] [place] [address] Platelet mean volume (Bld) [Entitic vol] 8.4 fL Normal 6.4-10.8 [facility] Comment on above: Performed By: #### 2 [id number] #### [facility] [address] [place] [address] RBC (Bld) [#/Vol] 5.1 E12/L Normal 4.3-5.9 [facility] Comment on above: Performed By: #### 2 [id number] #### [facility] [address] [place] [address] WBC corrected for nucl RBC Auto (Bld) [#/Vol] 12.3 E9/L High 4.0-11.0 [facility] Comment on above: Performed By: #### 2 [id number] #### [facility] [address] [place] [address] CBC with Auto Differentialon 11-14-2024 Basophils (Bld) [#/Vol] 0.05 10*3/uL [facility] Basophils/100 WBC (Bld) 1 % 0 - 2 % [facility] Eosinophils (Bld) [#/Vol] 0.08 10*3/uL [facility] Eosinophils/100 WBC (Bld) 1 % 1 - 4 % [facility] Erythrocyte distribution width (RBC) [Ratio] 12.9 % 11.8 - 14.4 % [facility] Hematocrit (Bld) [Volume fraction] 46.0 % 36.3 - 47.1 % [facility] Hemoglobin (Bld) [Mass/Vol] 15.4 g/dL High 11.9 - 15.1 g/dL [facility] Immature granulocytes (Bld) [#/Vol] 0.05 10*3/uL [facility] Immature granulocytes/100 WBC (Bld) 1 % High 0 [facility] Interpretation and review of laboratory results Abnormal [facility] Lymphocytes/100 WBC (Bld) 29 % 24 - 43 % [facility] Lymphocytes/100 WBC (Bld) 3.01 % [facility] MCH (RBC) [Entitic mass] 29.2 pg 25.2 - 33.5 pg [facility] MCHC (RBC) [Mass/Vol] 33.5 g/dL 28.4 - 34.8 g/dL [facility] MCV (RBC) [Entitic vol] 87.1 fL 82.6 - 102.9 fL [facility] Monocytes/100 WBC (Bld) 4 % 3 - 12 % [facility] Monocytes/100 WBC (Bld) 0.43 % [facility] Neutrophils/100 WBC (Bld) 64 % 36 - 65 % [facility] Nucleated RBC/100 WBC (Bld) [Ratio] 0.0 % 0.0 per 100 WBC [facility] Platelet mean volume (Bld) [Entitic vol] 10.2 fL 8.1 - 13.5 fL [facility] Platelets (Bld) [#/Vol] 338 10*3/uL [facility] RBC (Bld) [#/Vol] 5.28 10*6/uL High 3.95 - 5.1 1 m/uL [facility] Segmented neutrophils/100 WBC (Bld) 6.66 % [facility] WBC other (Bld) [#/Vol] 10.3 [facility] CBC with Diffon 08-06-2024 Abs. Basophil 0.05 k/uL Normal 0.00-0.20 [facility] Comment on above: Performed By: #### L IP, CDP, CP ####[address] [place] [address] Lab Director: Murtaza Arceo MD Abs.Imm.Granulocyte 0.05 k/uL Normal 0.00-0.30 [facility] Comment on above: Performed By: #### L IP, CDP, CP ####[address] [place] [address] Lab Director: Murtaza Arceo MD Abs.Neutrophil (Seg) 6.66 k/uL Normal 1.50-8.10 [facility] Comment on above: Performed By: #### L IP, CDP, CP ####[address] [place] [address] Lab Director: Murtaza Arceo MD Basophils/100 WBC (Bld) 1 % Normal 0-2 [facility] Comment on above: Performed By: #### L IP, CDP, CP ####[address] [place] [address] Lab Director: Murtaza Arceo MD Eosinophils (Bld) [#/Vol] 0.08 10*3/uL Normal 0.00-0.44 [facility] Comment on above: Performed By: #### L IP, CDP, CP ####[address] , [place] 00[address] Lab Director: Murtaza Arceo MD Eosinophils/100 WBC (Bld) 1 % Normal 1-4 [facility] Comment on above: Performed By: #### L IP, CDP, CP ####[address] , [place] [address]83 Lab Director: Murtaza Arceo MD Erythrocyte distribution width (RBC) [Ratio] 12.9 % Normal 11.8-14.4 [facility] Comment on above: Performed By: #### L IP, CDP, CP ####[address] , [facility] Lab Director: Murtaza Arceo MD Hematocrit (Bld) [Volume fraction] 46.0 % Normal 36.3-47.1 [facility] Comment on above: Performed By: #### L IP, CDP, CP ####[address] , [facility] Lab Director: Murtaza Arceo MD Hemoglobin (Bld) [Mass/Vol] 15.4 g/dL High 11.9-15.1 [facility] Comment on above: Performed By: #### L SAÚL CDP, CP ####[address] , [facility] Lab Director: Murtaza Arceo MD Immature granulocytes/100 WBC (Bld) 1 % High 0 [facility] Comment on above: Performed By: #### L SAÚL CDP, CP ####[address] , [facility] Lab Director: Murtaza Arceo MD Lymphocytes (Bld) [#/Vol] 3.01 10*3/uL Normal 1.10-3.70 [facility] Comment on above: Performed By: #### L IP, CDP, CP ####[address] , [place] 488[address]83 Lab Director: Murtaza Arceo MD Lymphocytes/100 WBC (Bld) 29 % Normal 24-43 [facility] Comment on above: Performed By: #### L IP, CDP, CP ####[address] , [place] [address] Lab Director: Murtaza Arceo MD MCH (RBC) [Entitic mass] 29.2 pg Normal 25.2-33.5 [facility] Comment on above: Performed By: #### L IP, CDP, CP ####[address] , [place] [address])[phone] Director: Murtaza Arceo MD MCHC (RBC) [Mass/Vol] 33.5 g/dL Normal 28.4-34.8 [facility] Comment on above: Performed By: #### L IP, CDP, CP ####[address] , [place] [address])[phone] Director: Murtaza Arceo MD MCV (RBC) [Entitic vol] 87.1 fL Normal 82.6-102.9 [facility] Comment on above: Performed By: #### L IP, CDP, CP ####[address] , [place] [address])[phone] Director: Murtaza Arceo MD Monocytes (Bld) [#/Vol] 0.43 10*3/uL Normal 0.10-1.20 [facility] Comment on above: Performed By: #### L IP, CDP, CP ####[address] , [place] [address])[phone] Director: Murtaza Arceo MD Monocytes/100 WBC (Bld) 4 % Normal 3-12 [facility] Comment on above: Performed By: #### L IP, CDP, CP ####[address] , [facility]83 lab Director: Murtaza Arceo MD Neutrophil (Seg) 64 % Normal 36-65 [facility] Comment on above: Performed By: #### L IP, CDP, CP ####[address] , [place] [address] Lab Director: Murtaza Arceo MD NRBC Automated 0.0 per 100 WBC Normal 0.0 [facility] Comment on above: Performed By: #### L IP, CDP, CP ####[address] , [facility]83 Lab Director: Murtaza Arceo MD Platelet mean volume (Bld) [Entitic vol] 10.2 fL Normal 8.1-13.5 [facility] Comment on above: Performed By: #### L SAÚL CDP, CP ####[address] , [facility]83 Lab Director: Murtaza Arceo MD Platelets (Bld) [#/Vol] 338 10*3/uL Normal 138-453 [facility] Comment on above: Performed By: #### L SAÚL CDP, CP ####[address] , [place] [address]83 Lab Director: Murtaza Arceo MD RBC (Bld) [#/Vol] 5.28 10*6/uL High 3.95-5.11 [facility] Comment on above: Performed By: #### L SAÚL CDP, CP ####[address] , [place] [address] Lab Director: Murtaza Arceo MD WBC (Bld) [#/Vol] 10.3 10*3/uL Normal 3.5-11.3 [facility] Comment on above: Performed By: #### L SAÚL CDP, CP ####[address] [place] [address] Lab Director: Murtaza Arceo MD CHEMISTRYOrdered By: SYSTEM [...] 2023 Albumin [Mass/Vol] 4.5 g/dL Normal 3.5-5.2 [facility] Comment on above: Performed By: #### L IP, CDP, CP ####[address] , [place] 640[address]83 Lab Director: Murtaza Arceo MD Albumin/Glob Ratio 1.4 Normal 1.0-2.5 [facility] Comment on above: Performed By: #### L IP, CDP, CP ####[address] , [place] [id number] Lab Director: Murtaza Arceo MD Alkaline Phos 97 U/L Normal 35-104 [facility] Comment on above: Performed By: #### L IP, CDP, CP ####[address] , [place] 4497483 Lab Director: Murtaza Arceo MD ALT [Catalytic activity/Vol] 38 U/L High 10-35 [facility] Comment on above: Performed By: #### L IP, CDP, CP ####[address] , [place] 0656[address] Lab Director: Murtaza Arceo MD Anion gap [Moles/Vol] 14 mmol/L Normal 9-16 [facility] Comment on above: Performed By: #### L IP, CDP, CP ####[address] , [place] 6[address]83 Lab Director: Murtaza Arceo MD AST [Catalytic activity/Vol] 40 U/L High 10-35 [facility] Comment on above: Performed By: #### L IP, CDP, CP ####[address] , [place] 3002683 Lab Director: Murtaza Arceo MD Bilirubin [Mass/Vol] 0.4 mg/dL Normal 0.00-1.20 [facility] Comment on above: Performed By: #### L IP, CDP, CP ####[address] , [place] 530[address]83 lab Director: Murtaza Arceo MD BUN/CRE Ratio 21 High 9-20 [facility] Comment on above: Performed By: #### L IP, CDP, CP ####[address] , [place] 8[address]83 lab Director: Murtaza Arceo MD Calcium [Mass/Vol] 9.9 mg/dL Normal 8.6-10.4 [facility] Comment on above: Performed By: #### L IP, CDP, CP ####[address] , [place] 4429383 lab Director: Murtaza Arceo MD Chloride [Moles/Vol] 104 mmol/L Normal 98-107 [facility] Comment on above: Performed By: #### L IP, CDP, CP ####[address] , [place] 335[address]83 lab Director: Murtaza Acreo MD CO2 [Moles/Vol] 22 mmol/L Normal 20-31 [facility] Comment on above: Performed By: #### L IP, CDP, CP ####[address] , [place] 727[address]83 lab Director: Murtaza Arceo MD Creatinine [Mass/Vol] 0.7 mg/dL Normal 0.50-0.90 [facility] Comment on above: Performed By: #### L IP, CDP, CP ####[address] [place] [address] lab Director: Murtaza Arceo MD GFR/1.73 sq M.predicted among non-blacks MDRD (S/P/Bld) [Vol rate/Area] mL/min/{1.73_m2} Normal >60 [facility] Comment on above: Result Comment: These [...] renal tubular secretion. Performed By: #### L IP CDP, CP ####[address] [place] [address] Lab Director: Murtaza Arceo MD Glucose [Mass/Vol] 193 mg/dL High 74-99 [facility] Comment on above: Performed By: #### L SAÚL CDP, CP ####[address] , [place] 7597483 Lab Director: Murtaza Arceo MD Potassium [Moles/Vol] 4.5 mmol/L Normal 3.7-5.3 [facility] Comment on above: Performed By: #### L COLLETTE HAYS, CP ####[address] , [place] 2643283 Lab Director: Murtaza Arceo MD Protein [Mass/Vol] 7.7 g/dL Normal 6.6-8.7 [facility] Comment on above: Performed By: #### L SAÚL CDP, CP ####[address] , [place] 1364683 Lab Director: Murtaza Arceo MD Sodium [Moles/Vol] 140 mmol/L Normal 136-145 [facility] Comment on above: Performed By: #### L IP CDP, CP ####[address] [place] [address] Lab Director: Murtaza Arceo MD Urea nitrogen [Mass/Vol] 15 mg/dL Normal 6-20 [facility] Comment on above: Performed By: #### L IP, CDP, CP ####[facility] [place] [address] lab Director: Murtaza Arceo MD [facility] Metabolic [facility] 08-06-2024 Albumin [Mass/Vol] 4.5 g/dL 3.5 - 5.2 g/dL [facility] Albumin/Globulin [Mass ratio] 1.4 {ratio} 1.0 - 2.5 [facility] ALP [Catalytic activity/Vol] 97 U/L 35 - 104 U/L [facility] ALT [Catalytic activity/Vol] 38 U/L High 10 - 35 U/L [facility] Anion gap [Moles/Vol] 14 mmol/L 9 - 16 mmol/L [facility] AST [Catalytic activity/Vol] 40 U/L High 10 - 35 U/L [facility] Bilirubin [Mass/Vol] 0.4 mg/dL 0.00 - 1.20 mg/dL [facility] Calcium [Mass/Vol] 9.9 mg/dL 8.6 - 10. 4 mg/dL [facility] Chloride [Moles/Vol] 104 mmol/L 98 - 10 7 mmol/L [facility] CO2 [Moles/Vol] 22 mmol/L 20 - 31 mmol/L [facility] Creatinine [Mass/Vol] 0.7 mg/dL 0.50 - 0.90 mg/dL [facility] Est, Glom Filt Rate - PINF [facility] Comment on above: These results are not [...] 193 mg/dL High 74 - 99 mg/dL [facility] Potassium [Moles/Vol] 4.5 mmol/L 3.7 - 5.3 mmol/L [facility] Protein [Mass/Vol] 7.7 g/dL 6.6 - 8.7 g/dL [facility] Sodium [Moles/Vol] 140 mmol/L 136 - 145 mmol/L [facility] Urea nitrogen [Mass/Vol] 15 mg/dL 6 - 20 mg/dL [facility] Urea nitrogen/Creatinine [Mass ratio] 21 mg/mg High 9 - 20 [facility] ED Note-Nursingon 08-06-2024 ED Note-Nursing ED Note-Nursing at this time pt states she feels well enough to go home with spouse Normal [facility] Extra Blueon 08-06-2024 Tube Collected Plasma Yes Invalid Interpretation Code [facility] Comment on above: Performed By: #### 1 [id number] #### [facility] [address] [place] [address] HEMATOLOGYOrdered By: SYSTEM SYSTEM on 08-06-2024 Basophils/100 [...] 08-06-2024 Albumin [Mass/Vol] 4.4 g/dL Normal 3.3-5.0 [facility] Comment on above: Performed By: #### 2 [id number] #### [facility] [address] [place] [address] Albumin/Globulin (S) [Mass conc ratio] 1.5 Normal 1.1-2.2 [facility] Comment on above: Performed By: #### 2 [id number] #### [facility] [address] [place] [address] ALP [Catalytic activity/Vol] 78 Int._Unit/L Normal 21-98 [facility] Comment on above: Performed By: #### 2 [id number] #### [facility] [address] [place] [address] ALT No additional P-5'-P [Catalytic activity/Vol] 34 Int._Unit/L Normal 6-46 [facility] Comment on above: Performed By: #### 2 [id number] #### [facility] [address] [place] [address] AST [Catalytic activity/Vol] 30 Int._Unit/L Normal 5-43 [facility] Comment on above: Performed By: #### 2 [id number] #### [facility] [address] [place] [address] Bilirubin [Mass/Vol] 0.4 mg/dL Normal 0.0-1.1 [facility] Comment on above: Performed By: #### 2 [id number] #### [facility] [address] [place] [address] Bilirubin.direct [Mass/Vol] 0.1 mg/dL Normal 0.0-0.4 [facility] Comment on above: Performed By: #### 2 [id number] #### [facility] [address] [place] [address] Bilirubin.indirect [Mass or moles/Vol] 0.3 mg/dL Normal 0.1-0.9 [facility] Comment on above: Performed By: #### 2 [id number] #### [facility] [address] [place] [address] Globulin (S) [Mass/Vol] 2.9 g/dL Normal 1.4-4.0 [facility] Comment on above: Performed By: #### 2 [id number] #### [facility] [address] [place] [address] Protein [Mass/Vol] 7.3 g/dL Normal 6.0-7.8 [facility] Comment on above: Performed By: #### 2 [id number] #### [facility] [address] [place] [address] Lactic Acidon 08-06-2024 Lactate (BldV) [Moles/Vol] 1.8 mmol/L 0.5 - 2.2 mmol/L [facility] Lactate [Moles/Vol] 1.8 mmol/L Normal 0.5-2.2 [facility] Comment on above: Performed By: #### L ACTIC ####[facility] [place] [address] lab Director: Murtaza Arceo MD Lipaseon 08-06-2024 Lipase [Catalytic activity/Vol] 61 U/L High 13 - 60 U/L [facility] Lipase [Catalytic activity/Vol] 61 U/L High 13-60 [facility] Comment on above: Performed By: #### L IP, CDP, CP ####[facility] [place] [address] lab Director: Murtaza Arceo MD Lipase Levelon 08-06-2024 Lipase [Catalytic activity/Vol] 74 U/L High 13-58 [facility] Comment on above: Performed By: #### 2 [id number] #### [facility] [address] [place] [id number] No Panel Informationon 08-06 Interpretation and review of laboratory results Abnormal [facility] SEROLOGYOrdered By: Nehal Toscano on 08-06-2024 HCG.beta subunit (U) [Moles/Vol] Negative Normal [facility] Man Sero U BetaHcg Qualon 08-06-2024 HCG.beta subunit (U) [Moles/Vol] Negative Normal [facility] Comment on above: Performed By: #### 2 [id number] #### [facility] [address] [place] [id number] UA with Cult Rflxon 08-06-20 24 Bilirubin Ql (U) Negative Normal Negative [facility] Comment on above: Performed By: #### 4 [id number] #### [facility] [address] [place] [address] Clarity (U) Clear Normal Clear [facility] Comment on above: Performed By: #### 4 [id number] #### [facility] [address] [place] [address] Color (U) Light-Yellow Normal Yellow [facility] Comment on above: Result Comment: Micr oscopic readings are only performed on those samples that meet specific criteria set forth by [facility]. Performed By: #### 4 [id number] #### [facility] [address] [place] [address] Glucose Ql (U) 4+ mg/dL Abnormal Negative [facility] Comment on above: Performed By: #### 4 [id number] #### [facility] [address] [place] [address] Hemoglobin Auto test strip (U) [Mass/Vol] Negative Normal Negative [facility] [facility] Comment on above: Performed By: #### 4 [id number] #### [facility] [address] [place] [address] Ketones Auto test strip Ql (U) Negative Normal Negative [facility] Comment on above: Performed By: #### 4 [id number] #### [facility] [address] [place] [address] Leukocyte esterase Auto test strip Ql (U) Negative Normal Negative [facility] Comment on above: Performed By: #### 4 [id number] #### [facility] [address] [place] [address] Nitrite Auto test strip Ql (U) Negative Normal Negative [facility] Comment on above: Performed By: #### 4 [id number] #### [facility] [address] [place] [address] pH (U) 5.5 [pH] Invalid Interpretation Code 5.0-9.0 [facility] Comment on above: Performed By: #### 4 [id number] #### [facility] [address] [place] [address] Protein Ql (U) Negative Normal Negative [facility] Comment on above: Performed By: #### 4 [id number] #### [facility] [address] [place] [address] Specific gravity (U) [Rel density] 1.035 Invalid Interpretation Code 1.005-1.030 [facility] Comment on above: Performed By: #### 4 [id number] #### [facility] [address] [place] [address] Urobilinogen (U) [Mass/Vol] Negative Normal Negative [facility] Comment on above: Performed By: #### 4 [id number] #### [facility] [address] [place] [address] Type of Urine collection method Clean Catch Normal [facility] Comment on above: Performed By: #### 4 [id number] #### [facility] [address] [place] [address] URINALYSISOrdered By: SYSTEM SYSTEM on 08-06-2024 Bilirubin Ql (U) Negative Normal Negativemg/ dL [facility] UA Auto SS Clarity (U) Clear (08/06/24 7:56 PM) Normal Clear [facility] UA Auto SS Color (U) Light-Yellow 1 (08/06/24 7:56 PM) Normal Yellow [facility] Auto SS Comment on above: Interpretive Data: M icroscopic readings are only performed on those samples that meet specific criteria set forth by [facility]. Glucose Ql (U) 4+ mg/dL Invalid [...] strip Ql (U) Negative Normal Negativemg/ dL [facility] UA Auto SS pH (U) 5.5 *NA* (08/06/24 7:56 PM) Invalid Interpretation Code 5.0 - 9.0 [facility] UA Auto SS Protein Ql (U) Negative Normal Negativemg/ dL [facility] UA Auto SS Specific gravity (U) [Rel density] 1.035 *NA* (08/06/24 7:56 PM) Invalid Interpretation Code 1.005 - 1.030 [facility] UA Auto SS Urobilinogen (U) [Mass/Vol] Negative Normal Negativemg/ dL [facility] UA Auto SS URINALYSISOrdered By: Mouna Quintanilla on 08-06-2024 UA Spec Desc Clean Catch (11/14/24 7:56 PM) Normal [facility] UA Auto SS Urinalysis w/ Microon 2023 Bilirubin, SemiQt,Ur Negative Normal NEG [facility] Comment on above: Performed By: #### C DP, CP #### [facility] [address] [place] [address] Product Strategy Director: Murtaza Arceo MD Blood, Urine Negative Normal NEG [facility] Comment on above: Performed By: #### C DP, CP #### [facility] [address] [place] [address] Product Strategy Director: Murtaza Arceo MD Clarity (U) Clear Normal CLEAR [facility] Comment on above: Performed By: #### C DP, CP #### [facility] [address] [place] [address] Product Strategy Director: Murtaza Arceo MD Color (U) Yellow Normal YEL [facility] Comment on above: Performed By: #### C DP, CP #### [address] [place] [address] Product Strategy Director: Murtaza Arceo MD Epithelial cells LM Ql (Urine sed) 0 TO 2 Normal 0-25 [facility] Comment on above: Performed By: #### C DP, CP #### [facility] [address] [place] [address] Product Strategy Director: Murtaza Arceo MD Glucose Ql (U) 3+ mg/dL Abnormal NEG [facility] Comment on above: Performed By: #### C DP, CP #### [facility] [address] [place] [address] Product Strategy Director: Murtaza Arceo MD Ketones Ql (U) Negative Normal NEG [facility] Comment on above: Performed By: #### C DP, CP #### [facility] [address] [place], [place] [id number] Product Strategy Director: Murtaza Arceo MD Leukocyte esterase Test strip Ql (U) Negative Normal NEG [facility] Comment on above: Performed By: #### C DP, CP #### [facility] [address] [place] [address] Product Strategy Director: Murtaza Arceo MD Nitrite,Ur Negative Normal NEG [facility] Comment on above: Performed By: #### C DP, CP #### [address] [place], [place] [id number] Product Strategy Director: Murtaza Arceo MD PH,Ur 6.0 Normal 5.0-9.0 [facility] Comment on above: Performed By: #### C DP, CP #### [address] [place] [address] Product Strategy Director: Murtaza Arceo MD Protein Ql (U) Negative Normal NEG [facility] Comment on above: Performed By: #### C DP, CP #### [address] [place] [address] Product Strategy Director: Murtaza Arceo MD Spec. Onyx,Ur 1.015 Normal 1.010-1.020 [facility] Comment on above: Performed By: #### C DP, CP #### [facility] [address] [place] [address] Dr[address] [place], [place] [address] Product Strategy Director: Murtaza Arceo MD Urine RBC's 0 TO 2 Normal 0-2 [facility] Comment on above: Performed By: #### C DP, CP #### [facility] [address] [place] [address] [place] [address] Product Strategy Director: Murtaza Arceo MD Urine WBC's 0 TO 2 Normal 0-5 [facility] Comment on above: Performed By: #### C DP, CP #### [facility] [address] [place] [address] Product Strategy Director: Murtaza Arceo MD Urobilinogen,Ur Normal Normal 0.0-1.0 [facility] Comment on above: Performed By: #### C DP, CP #### [facility] [address] [place] [address] Product Strategy Director: Murtaza Arceo MD Urinalysis with Microscopico n 08-06-2024 Bilirubin Ql (U) Negative NEGATIVE [facility] Clarity (U) Clear Clear [facility] Color (U) Yellow Yellow [facility] Epithelial cells LM.HPF (Urine sed) [#/Area] 0 TO 2 [facility] Glucose Test strip (U) [Mass/Vol] 3+ Abnormal NEGATIVE mg/dL [facility] Hemoglobin Auto test strip Ql (U) Negative NEGATIVE [facility] Interpretation and review of laboratory results Abnormal [facility] Ketones (U) [Mass/Vol] Negative NEGAT SIMA mg/dL [facility] Leukocyte esterase Test strip Ql (U) Negative NEGATIVE [facility] Nitrite Ql (U) Negative NEGATIVE [facility] pH (U) 6.0 [pH] 5.0 - 9.0 [facility] Protein (U) [Mass/Vol] Negative NEGAT SIMA mg/dL [facility] RBC LM.HPF (Urine sed) [#/Area] 0 TO 2 [facility] Specific gravity (U) [Rel density] 1.015 1.010 - 1.020 [facility] Urobilinogen Qn (U) Normal 0.0 - 1. 0 EU/dL [facility] WBC LM.HPF (Urine sed) [#/Area] 0 TO 2 [facility] eGFRon 08-06-2024 eGFR 88 mL/min/1.73 m2 Normal >=59 [facility] Comment on above: Performed By: #### 1 [id number] #### [facility] [address] [place] [address] BMPon 07-29-2024 Anion gap [Moles/Vol] 14 mmol/L Normal 6-16 [facility] Comment on above: Performed By: #### 2 [id number] #### [facility] [address] [place] [address] Calcium [Mass/Vol] 10.2 mg/dL Normal 8.9-11.1 [facility] Comment on above: Performed By: #### 2 [id number] #### [facility] [address] [place] [address] Chloride [Moles/Vol] 102 mmol/L Normal 101-111 [facility] Comment on above: Performed By: #### 2 [id number] #### [facility] [address] [place] [address] CO2 [Moles/Vol] 25 mmol/L Normal 21-31 [facility] Comment on above: Performed By: #### 2 [id number] #### [facility] [address] [place] [address] Creatinine [Mass/Vol] 0.7 mg/dL Normal 0.5-1.3 [facility] Comment on above: Performed By: #### 2 [id number] #### [facility] [address] [place] [address] Glucose [Mass/Vol] 169 mg/dL Normal 55-199 [facility] Comment on above: Performed By: #### 2 [id number] #### [facility] [address] [place] [address] Potassium [Moles/Vol] 3.9 mmol/L Normal 3.5-5.3 [facility] Comment on above: Performed By: #### 2 [id number] #### [facility] [address] [place] [address] Sodium [Moles/Vol] 137 mmol/L Normal 135-145 [facility] Comment on above: Performed By: #### 2 [id number] #### [facility] [address] [place] [address] Urea nitrogen [Mass/Vol] 11 mg/dL Normal 5-21 [facility] Comment on above: Performed By: #### 2 [id number] #### [facility] [address] [place] [address] Urea nitrogen/Creatinine [Mass ratio] 16 No Units Normal 10-20 [facility] Comment on above: Performed By: #### 2 [id number] #### [facility] [address] [place] [address] CBC w/ Auto Diffon 4 Basophils/100 WBC (Bld) 1.4 % Normal 0.0-2.0 [facility] Comment on above: Performed By: #### 2 [id number] #### [facility] [address] [place] [address] Basophils/Leukocytes Auto (Bld) [Pure # fraction] 0.2 E9/L Normal 0.0-0.2 [facility] Comment on above: Performed By: #### 2 [id number] #### [facility] [address] [place] [address] Eosinophils (Bld) [#/Vol] 0.2 E9/L Normal 0.0-0.5 [facility] Comment on above: Performed By: #### 2 [id number] #### [facility] [address] [place] [address] Eosinophils/100 WBC (Bld) 1.3 % Normal 0.0-8.0 [facility] Comment on above: Performed By: #### 2 [id number] #### [facility] [address] [place] [address] Erythrocyte distribution width (RBC) [Ratio] 13.8 % Normal 10.9-14.2 [facility] Comment on above: Performed By: #### 2 [id number] #### [facility] [address] [place] [address] Hematocrit (Bld) [Volume fraction] 44.0 % Normal 34.0-46.0 [facility] Comment on above: Performed By: #### 2 [id number] #### [facility] [address] [place] [address] Hemoglobin (Bld) [Mass/Vol] 15.2 g/dL Normal 12.0-16.0 [facility] Comment on above: Performed By: #### 2 [id number] #### [facility] [address] [place] [address] Lymphocytes (Bld) [#/Vol] 4.9 E9/L High 1.0-4.0 [facility] Comment on above: Performed By: #### 2 [id number] #### [facility] [address] [place] [address] Lymphocytes/100 WBC (Bld) 35.0 % Normal 14.0-50.0 [facility] Comment on above: Performed By: #### 2 [id number] #### [facility] [address] [place] [address] MCH (RBC) [Entitic mass] 29.8 pg Normal 27.0-34.0 [facility] Comment on above: Performed By: #### 2 [id number] #### [facility] [address] [place] [address] MCHC (RBC) [Mass/Vol] 34.5 g/dL Normal 31.4-36.0 [facility] Comment on above: Performed By: #### 2 240313 #### [facility] [address] [place] [address] MCV (RBC) [Entitic vol] 86.4 fL Normal 80.0-100.0 [facility] Comment on above: Performed By: #### 2 [id number] #### [facility] [address] [place] [address] Monocytes (Bld) [#/Vol] 0.7 E9/L Normal 0.2-1.0 [facility] Comment on above: Performed By: #### 2 [id number] #### [facility] [address] [place] [address] Neutrophils (Bld) [#/Vol] 8.1 E9/L High 2.0-7.5 [facility] Comment on above: Performed By: #### 2 [id number] #### [facility] [address] [place] [address] Neutrophils/100 WBC (Bld) 57.3 % Normal 36.0-75.0 [facility] Comment on above: Performed By: #### 2 [id number] #### [facility] [address] [place] [address] Platelet mean volume (Bld) [Entitic vol] 8.7 fL Normal 6.4-10.8 [facility] Comment on above: Performed By: #### 2 [id number] #### [facility] [address] [place] [address] Platelets (Bld) [#/Vol] 327.0 E9/L Normal 150.0-500.0 [facility] Comment on above: Performed By: #### 2 [id number] #### [facility] [address] [place] [address] RBC (Bld) [#/Vol] 5.1 E12/L Normal 4.3-5.9 [facility] Comment on above: Performed By: #### 2 [id number] #### [facility] [address] [place] [address] WBC corrected for nucl RBC Auto (Bld) [#/Vol] 14.1 E9/L High 4.0-11.0 [facility] Comment on above: Performed By: #### 2 [id number] #### [facility] [address] [place] [address] CHEMISTRYOrdered By: SYSTEM SYSTEM on 07-29-2024 Albumin [...] 2023 ED Clinical Summary ED Clinical Summary [address] [address] ED Clinical Summary Person Information [facility]: [facility] Age[facility] 29 Years : 1995 Sex: Female Language: [place] PCP: YOSSI GOLDEN MD Marital Status: Visit [...] 07/29/2024 21:13:17 07/29/2024 21:13:17 07/29/2024 21:13:17 ADDRESS: [address] [place] [id number] PHYS DOC NOTES: MEDICAL INFORMATION: Prescriptions Given: [...] With: Address: When: YOSSI GOLDEN [address], [place] [id number] Business (1) In 3 days 08/01/2024 DIAGNOSIS: Epigastric abdominal pain; Gastroparesis; Nausea & vomiting Normal [facility] ED Note-Physicianon 07-29-20 ED Note-Physician ED Note-Physician [...] with close follow-up with 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 Return to ED precautions were reviewed with [...] Deniz 50 mL [F] 50 mL + [id number] [F] 12.5 mg, IV Piggyback Disposition Plan Patient Discharge Condition Stable, improved Discharge Disposition Home Discharge Prescription List Prescriptions No active prescription medications Follow-up With When Contact Information YOSSI GOLDEN In 3 days 08/01/2024 EST [address] [place] [address] Business (1) Additional I (more content not included)... Normal [facility] Comment on above: Result Comment: Elec tronically Signed By: Artem Duenas PA-C\.br\Date and Time Signed: 07/29/24 20:53 EST\.br\Electronically Co-Signed By: Tonny Butler DO\.br\Date and Time Co-Signed: 07/29/24 23:48 EST ED Patient Summaryon 024 ED Patient Summary ED Patient Summary [place] [id number] Patient Discharge Instructions Person Information Name: GAEL RUBY Age: 29 Years Arrival Date: 07/29/2024 18:43:11 Discharge Diagnosis: Epigastric abdominal pain; Gastroparesis; Nausea & vomiting Primary Care Physician: YOSSI GOLDEN MD Provider Information Primary Provider: Tonny Butler DO Advanced Hydrostatic Tubing Tester:Artem Duenas PA-C The exam and treatment you received in the Emergency Department were for an urgent problem and are not intended as complete care. It is important that you follow up with a doctor, nurse practitioner, or physician???s occupational therapist's assistant for ongoing care. If your symptoms [...] With: Address: When: YOSSI GOLDEN [address], [place] [id number] Business (1) In 3 days 08/01/2024 In the event that this physician does not participate in your insurance network, please consult with your insurance company to find a nearby participating provider. Patient Education Materials: Gastroparesis A MESSAGE TO ALL PATIENTS REGARDING OPIOIDS PRESCRIPTION OPIOIDS: WHAT YOU NEED TO KNOW Prescription opioids can be used to help relieve gbiqmuwn-ox-xzwmuo pain and are often prescribed following a [...] addiction, tell (more content not included)... Normal [facility] Extra Blueon 07-29-2024 Tube Collected Plasma Yes Invalid Interpretation Code [facility] Comment on above: Performed By: #### 1 [id number] #### [facility] [address] [place] [address] HEMATOLOGYOrdered By: SYSTEM SYSTEM on 07-29-2024 Basophils/100 [...] 07-29-2024 Albumin [Mass/Vol] 4.7 g/dL Normal 3.3-5.0 [facility] Comment on above: Performed By: #### 2 [id number] #### [facility] [address] [place] [address] Albumin/Globulin (S) [Mass conc ratio] 1.3 Normal 1.1-2.2 [facility] Comment on above: Performed By: #### 2 [id number] #### [facility] [address] [place] [address] ALP [Catalytic activity/Vol] 86 Int._Unit/L Normal 21-98 [facility] Comment on above: Performed By: #### 2 [id number] #### [facility] [address] [place] [address] ALT No additional P-5'-P [Catalytic activity/Vol] 34 Int._Unit/L Normal 6-46 [facility] Comment on above: Performed By: #### 2 [id number] #### [facility] [address] [place] [address] AST [Catalytic activity/Vol] 32 Int._Unit/L Normal 5-43 [facility] Comment on above: Performed By: #### 2 [id number] #### [facility] [address] [place] [address] Bilirubin [Mass/Vol] 0.5 mg/dL Normal 0.0-1.1 [facility] Comment on above: Performed By: #### 2 [id number] #### [facility] [address] [place] [address] Bilirubin.direct [Mass/Vol] 0.1 mg/dL Normal 0.0-0.4 [facility] Comment on above: Performed By: #### 2 [id number] #### [facility] [address] [place] [address] Bilirubin.indirect [Mass or moles/Vol] 0.4 mg/dL Normal 0.1-0.9 [facility] Comment on above: Performed By: #### 2 [id number] #### [facility] [address] [place] [address] Globulin (S) [Mass/Vol] 3.5 g/dL Normal 1.4-4.0 [facility] Comment on above: Performed By: #### 2 [id number] #### [facility] [address] [place] [address] Protein [Mass/Vol] 8.2 g/dL High 6.0-7.8 [facility] Comment on above: Performed By: #### 2 [id number] #### [facility] [address] [place] [address] Lipase Levelon 07-29-2024 Lipase [Catalytic activity/Vol] 87 U/L High 13-58 [facility] Comment on above: Performed By: #### 2 [id number] #### [facility] [address] [place] [address] UA with Cult Rflxon 07-29-20 24 Bilirubin Ql (U) Negative Normal Negative [facility] Comment on above: Performed By: #### 4 [id number] #### [facility] [address] [place] [address] Clarity (U) Clear Normal Clear [facility] Comment on above: Performed By: #### 4 [id number] #### [facility] [address] [place] [address] Color (U) Light-Yellow Normal Yellow [facility] Comment on above: Result Comment: Micr oscopic readings are only performed on those samples that meet specific criteria set forth by [facility]. Performed By: #### 4 [id number] #### [facility] [address] [place] [address] Glucose Ql (U) 4+ mg/dL Abnormal Negative [facility] Comment on above: Performed By: #### 4 [id number] #### [facility] [address] [place] [address] Hemoglobin Auto test strip (U) [Mass/Vol] Negative Normal Negative [facility] Comment on above: Performed By: #### 4 [id number] #### [facility] [address] [place] [address] Ketones Auto test strip Ql (U) Negative Normal Negative [facility] Comment on above: Performed By: #### 4 [id number] #### [facility] [address] [place] [address] Leukocyte esterase Auto test strip Ql (U) Negative Normal Negative [facility] Comment on above: Performed By: #### 4 [id number] #### [facility] [address] [place] [address] Nitrite Auto test strip Ql (U) Negative Normal Negative [facility] Comment on above: Performed By: #### 4 [id number] #### [facility] [address] [place] [address] pH (U) 6.0 [pH] Invalid Interpretation Code 5.0-9.0 [facility] Comment on above: Performed By: #### 4 [id number] #### [facility] [address] [place] [address] Protein Ql (U) Trace Abnormal Negative [facility] Comment on above: Performed By: #### 4 [id number] #### [facility] [address] [place] [address] Specific gravity (U) [Rel density] 1.031 Invalid Interpretation Code 1.005-1.030 [facility] Comment on above: Performed By: #### 4 [id number] #### [facility] [address] [place] [address] Urobilinogen (U) [Mass/Vol] Negative Normal Negative [facility] Comment on above: Performed By: #### 4 [id number] #### [facility] [address] [place] [address] Type of Urine collection method Clean Catch Normal [facility] Comment on above: Performed By: #### 4 [id number] #### [facility] [address] [place] [address] URINALYSISOrdered By: SYSTEM SYSTEM on 07-29-2024 Bilirubin Ql (U) Negative Normal Negativemg/ dL [facility] UA Auto SS Clarity (U) Clear (07/29/24 7:41 PM) Normal Clear [facility] UA Auto SS Color (U) Light-Yellow 1 (07/29/24 7:41 PM) Normal Yellow [facility] UA Auto SS Comment on above: Interpretive Data: M icroscopic readings are only performed on those samples that meet specific criteria set forth by [facility]. Glucose Ql (U) 4+ mg/dL Invalid Interpretation Code Negativemg/ dL [facility] UA Auto SS Hemoglobin Auto test strip (U) [Mass/Vol] Negative Normal Negativemg/ dL FT UA Auto SS Ketones Auto test strip Ql (U) Negative Normal Negativemg/ dL FT UA Auto SS Leukocyte esterase Auto test strip Ql (U) Negative Normal NegativeLeu /uL FT UA Auto SS Nitrite Auto test strip Ql (U) Negative Normal Negativemg/ dL [facility] UA Auto SS pH (U) 6.0 *NA* (07/29/24 7:41 PM) Invalid Interpretation Code 5.0 - 9.0 FT UA Auto SS Protein Ql (U) Trace mg/dL Invalid Interpretation Code Negativemg/ dL [facility] UA Auto SS Specific gravity (U) [Rel density] 1.031 *NA* (07/29/24 7:41 PM) Invalid Interpretation Code 1.005 - 1.030 [facility] UA Auto SS Urobilinogen (U) [Mass/Vol] Negative Normal Negativemg/ dL [facility] UA Auto SS URINALYSISOrdered By: Najma Leone on 07-29-2024 UA Spec Desc Clean Catch (07/29/24 7:41 PM) Normal [facility] UA Auto SS eGFRon 07-29-2024 eGFR 119 mL/min/1.73 m2 Normal >=59 [facility] Comment on above: Performed By: #### 1 [id number] #### [facility] [address] [place] [address] Basic Metab w/rfx MGon 07-08 Anion gap [Moles/Vol] 10 mmol/L Normal - [facility] Comment on above: Performed By: #### B MPX ####[facility] [place] [address] lab Director: Murtaza Arceo MD BUN/CRE Ratio 13 Normal 06-12 [facility] Comment on above: Performed By: #### B MPX ####[facility] [place] [address] lab Director: Murtaza Arceo MD Calcium [Mass/Vol] 9.2 mg/dL Normal 8.6-10.4 [facility] Comment on above: Performed By: #### B MPX ####[facility] [id number] Lab Director: Murtaza Arceo MD Chloride [Moles/Vol] 105 mmol/L Normal 98-107 [facility] Comment on above: Performed By: #### B MPX ####[facility] , [place] [id number] Lab Director: Murtaza Arceo MD CO2 [Moles/Vol] 25 mmol/L Normal 20-31 [facility] Comment on above: Performed By: #### B MPX ####[facility] [id number] Lab Director: Murtaza Arceo MD Creatinine [Mass/Vol] 0.7 mg/dL Normal 0.50-0.90 [facility] Comment on above: Performed By: #### B MPX ####[facility] , [place] [id number] Lab Director: Murtaza Arceo MD GFR/1.73 sq M.predicted among non-blacks MDRD (S/P/Bld) [Vol rate/Area] mL/min/{1.73_m2} Normal >60 [facility] Comment on above: Result Comment: These [...] tubular secretion. Performed By: #### B MPX ####[facility] [id number] Lab Director: Murtaza Arceo MD Glucose [Mass/Vol] 173 mg/dL High 74-99 [facility] Comment on above: Performed By: #### B MPX ####[facility] , [place] [phone] Lab Director: Murtaza Arceo MD Potassium [Moles/Vol] 4.3 mmol/L Normal 3.7-5.3 [facility] Comment on above: Performed By: #### B MPX ####[facility] , [place] [id number] lab Director: Murtaza Arceo MD Sodium [Moles/Vol] 140 mmol/L Normal 136-145 [facility] Comment on above: Performed By: #### B MPX ####[facility] , [place] [id number] lab Director: Murtaza Arceo MD Urea nitrogen [Mass/Vol] 9 mg/dL Normal 6-20 [facility] Comment on above: Performed By: #### B MPX ####[address] , [place] [address] lab Director: Murtaza Arceo MD Basic Metabolic Panel w/ Ref kendell to MGon 07-08-2024 Anion gap [Moles/Vol] 10 mmol/L 9 - 16 mmol/L [facility] Calcium [Mass/Vol] 9.2 mg/dL 8.6 - 10. 4 mg/dL [facility] Chloride [Moles/Vol] 105 mmol/L 98 - 10 7 mmol/L [facility] CO2 [Moles/Vol] 25 mmol/L 20 - 31 mmol/L [facility] Creatinine [Mass/Vol] 0.7 mg/dL 0.50 - 0.90 mg/dL [facility] Est, Glom Gustabot Rate - PINF [facility] Comment on above: These results are not [...] 173 mg/dL High 74 - 99 mg/dL [facility] Interpretation and review of laboratory results Abnormal [facility] Potassium [Moles/Vol] 4.3 mmol/L 3.7 - 5.3 mmol/L [facility] Sodium [Moles/Vol] 140 mmol/L 136 - 145 mmol/L [facility] Urea nitrogen [Mass/Vol] 9 mg/dL 6 - 20 mg/dL [facility] Urea nitrogen/Creatinine [Mass ratio] 13 mg/mg - 20 [facility] Glucose, Whole Bloodon 07-08 Glucose [Mass/Vol] 201 mg/dL High 74 - 100 mg/dL [facility] Interpretation and review of laboratory results Abnormal [facility] Glucose [Mass/Vol] 201 mg/dL High 74-100 [facility] Glucose [Mass/Vol] 181 mg/dL High 74 - 100 mg/dL [facility] Interpretation and review of laboratory results Abnormal [facility] Glucose [Mass/Vol] 181 mg/dL High 74-100 [facility] BASIC METABOLIC PANEL R EFLEX MGon 07-08-2024 Anion gap [Moles/Vol] 10 mmol/L 9 - 16 mmol/L [facility] Calcium [Mass/Vol] 9.2 mg/dL 8.6 - 10. 4 mg/dL [facility] Chloride [Moles/Vol] 105 mmol/L 98 - 10 7 mmol/L [facility] CO2 [Moles/Vol] 25 mmol/L 20 - 31 mmol/L [facility] Creatinine [Mass/Vol] 0.7 mg/dL 0.50 - 0.90 mg/dL [facility] Glucose [Mass/Vol] 173 mg/dL High 74 - 99 mg/dL [facility] Interpretation and review of laboratory results Abnormal [facility] MHPT BUN/CRE RATIO 13 - [facility] - PINF [facility] Comment on above: These results are not [...] [Moles/Vol] 4.3 mmol/L 3.7 - 5.3 mmol/L [facility] Sodium [Moles/Vol] 140 mmol/L 136 - 145 mmol/L [facility] Urea nitrogen [Mass/Vol] 9 mg/dL 6 - 20 mg/dL [facility] Original Ordering Provider[facility] CBC with Auto Differentialon 07-07-2024 Basophils (Bld) [#/Vol] 0.06 10*3/uL [facility] Basophils/100 WBC (Bld) 1 % 0 - 2 % [facility] Eosinophils (Bld) [#/Vol] 0.17 10*3/uL [facility] Eosinophils/100 WBC (Bld) 2 % 1 - 4 % [facility] Erythrocyte distribution width (RBC) [Ratio] 12.7 % 11.8 - 14.4 % [facility] Hematocrit (Bld) [Volume fraction] 45.5 % 36.3 - 47.1 % [facility] Hemoglobin (Bld) [Mass/Vol] 15.2 g/dL High 11.9 - 15.1 g/dL [facility] Immature granulocytes (Bld) [#/Vol] 0.04 10*3/uL [facility] Immature granulocytes/100 WBC (Bld) 0 % 0 [facility] Interpretation and review of laboratory results Abnormal [facility] Lymphocytes/100 WBC (Bld) 25 % 24 - 43 % [facility] Lymphocytes/100 WBC (Bld) 2.53 % [facility] MCH (RBC) [Entitic mass] 29.9 pg 25.2 - 33.5 pg [facility] MCHC (RBC) [Mass/Vol] 33.4 g/dL 28.4 - 34.8 g/dL [facility] MCV (RBC) [Entitic vol] 89.4 fL 82.6 - 102.9 fL [facility] Monocytes/100 WBC (Bld) 5 % 3 - 12 % [facility] Monocytes/100 WBC (Bld) 0.52 % [facility] Neutrophils/100 WBC (Bld) 67 % High 36 - 65 % [facility] Nucleated RBC/100 WBC (Bld) [Ratio] 0.0 % 0.0 per 100 WBC [facility] Platelet mean volume (Bld) [Entitic vol] 10.4 fL 8.1 - 13.5 fL [facility] Platelets (Bld) [#/Vol] 294 10*3/uL [facility] RBC (Bld) [#/Vol] 5.09 10*6/uL 3.95 - 5.1 1 m/uL [facility] Segmented neutrophils/100 WBC (Bld) 6.70 % [facility] WBC other (Bld) [#/Vol] 10.0 [facility] CBC with Diffon 07-07-2024 Abs. Basophil 0.06 k/uL Normal 0.00-0.20 [facility] Comment on above: Performed By: #### U [facility], CINDYO #### [facility] [address] [place] [address] Dr. [place] [phone] Product Strategy Director: Murtaza Arceo MD Abs.Imm.Granulocyte 0.04 k/uL Normal 0.00-0.30 [facility] Comment on above: Performed By: #### U [facility], CINDYO #### [address] [place] [phone] Product Strategy Director: Murtaza Arceo MD Abs.Neutrophil (Seg) 6.70 k/uL Normal 1.50-8.10 [facility] Comment on above: Performed By: #### U AX CG, UMICAO #### [facility] [address] [place] [address] [place] [address] Product Strategy Director: Murtaza Arceo MD Basophils/100 WBC (Bld) 1 % Normal 0-2 [facility] Comment on above: Performed By: #### [facility] #### [facility] [address] [place] [address] Dr. [place], [facility]83 Product Strategy Director: Murtaza Arceo MD Eosinophils (Bld) [#/Vol] 0.17 10*3/uL Normal 0.00-0.44 [facility] Comment on above: Performed By: #### U AX, UHCG, UMICAO #### [facility] [address] [place], [facility]83 Product Strategy Director: Murtaza Arceo MD Eosinophils/100 WBC (Bld) 2 % Normal 1-4 [facility] Comment on above: Performed By: #### U AX, CG, UMICAO #### [address] [place], [facility]83 Product Strategy Director: Murtaza Arceo MD Erythrocyte distribution width (RBC) [Ratio] 12.7 % Normal 11.8-14.4 [facility] Comment on above: Performed By: #### U AX, CG, UMICAO #### [address] [place], [facility]83 Product Strategy Director: Murtaza Arceo MD Hematocrit (Bld) [Volume fraction] 45.5 % Normal 36.3-47.1 [facility] Comment on above: Performed By: #### U AX, CG, UMICAO #### [address] [place], [facility]83 Product Strategy Director: Murtaza Arceo MD Hemoglobin (Bld) [Mass/Vol] 15.2 g/dL High 11.9-15.1 [facility] Comment on above: Performed By: #### U AX, UHCG, UMICAO #### [address] [place], [facility]83 Product Strategy Director: Murtaza Arceo MD Immature granulocytes/100 WBC (Bld) 0 % Normal 0 [facility] Comment on above: Performed By: #### U AX, UHCG, UMICAO #### [facility] [address] [place], [facility]83 Product Strategy Director: Murtaza Arceo MD Lymphocytes (Bld) [#/Vol] 2.53 10*3/uL Normal 1.10-3.70 [facility] Comment on above: Performed By: #### [facility] UM[facility]O #### [facility] [address] [place], [place] [address] Product Strategy Director: Murtaza Arceo MD Lymphocytes/100 WBC (Bld) 25 % Normal 24-43 [facility] Comment on above: Performed By: #### [facility], UMICAO #### [address] [place], [place] [address] Product Strategy Director: Murtaza Arceo MD MCH (RBC) [Entitic mass] 29.9 pg Normal 25.2-33.5 [facility] Comment on above: Performed By: #### [facility], UMICAO #### [address] [place], [place] [address] Product Strategy Director: Murtaza Arceo MD MCHC (RBC) [Mass/Vol] 33.4 g/dL Normal 28.4-34.8 [facility] Comment on above: Performed By: #### [facility], UMICAO #### [address] [place], [place] [address] Product Strategy Director: Murtaza Arceo MD MCV (RBC) [Entitic vol] 89.4 fL Normal 82.6-102.9 [facility] Comment on above: Performed By: #### [facility] UMICAO #### [address] [place], [facility]83 Product Strategy Director: Murtaza Arceo MD Monocytes (Bld) [#/Vol] 0.52 10*3/uL Normal 0.10-1.20 [facility] Comment on above: Performed By: #### U AX, UHCG, UMICAO #### [facility] [address] [place], [place] [phone] Product Strategy Director: Murtaza Arceo MD Monocytes/100 WBC (Bld) 5 % Normal 3-12 [facility] Comment on above: Performed By: #### U AX, UHCG, UMICAO #### [facility] [address] [place], [facility]83 Product Strategy Director: Murtaza Arceo MD Neutrophil (Seg) 67 % High 36-65 [facility] Comment on above: Performed By: #### U FREEDOM UHCG, UMICAO #### [facility] [address] [place], [place] [phone] Product Strategy Director: Murtaza Arceo MD NRBC Automated 0.0 per 100 WBC Normal 0.0 [facility] Comment on above: Performed By: #### U DORIS LOJACG, UMICAO #### [facility] [address] [place], [place] [phone] Product Strategy Director: Murtaza Arceo MD Platelet mean volume (Bld) [Entitic vol] 10.4 fL Normal 8.1-13.5 [facility] Comment on above: Performed By: #### U FREEDOM UHCG, UMICAO #### [facility] [address] [place] [address] Dr. [place], [place] [address] Product Strategy Director: Murtaza Arceo MD Platelets (Bld) [#/Vol] 294 10*3/uL Normal 138-453 [facility] Comment on above: Performed By: #### U AX UHCG, UMICAO #### [facility] [address] [place], [place] [phone] Product Strategy Director: Murtaza Arceo MD RBC (Bld) [#/Vol] 5.09 10*6/uL Normal 3.95-5.11 [facility] Comment on above: Performed By: #### U AX, UHCG, UMICAO #### [facility] [address] [place], [place] 0196583 Product Strategy Director: Murtaza Arceo MD WBC (Bld) [#/Vol] 10.0 10*3/uL Normal 3.5-11.3 [facility] Comment on above: Performed By: #### U AX, UHCG, UMICAO #### [facility] [address] [place], [place] 1897883 Product Strategy Director: Murtaza Arceo MD Comp Metabolic Profon 2023 Albumin [Mass/Vol] 4.4 g/dL Normal 3.5-5.2 [facility] Comment on above: Performed By: #### U AX, CG, UMICAO #### [facility] [address] [place], [place] [phone] Product Strategy Director: Murtaza Arceo MD Albumin/Glob Ratio 1.5 Normal 1.0-2.5 [facility] Comment on above: Performed By: #### [facility], UMICAO #### [address] [place], [place] [phone] Product Strategy Director: Murtaza Arceo MD Alkaline Phos 100 U/L Normal 35-104 [facility] Comment on above: Performed By: #### U AX, UHCG, UMICAO #### [facility] [address] [place], [place] [phone] Product Strategy Director: Murtaza Arceo MD ALT [Catalytic activity/Vol] 34 U/L Normal 10-35 [facility] Comment on above: Performed By: #### U AX, CG, UMICAO #### [facility] [address] [place], [place] 5611383 Product Strategy Director: Murtaza Arceo MD Anion gap [Moles/Vol] 13 mmol/L Normal 9-16 [facility] Comment on above: Performed By: #### U AX, UHCG, UMICAO #### [facility] [address] [place], [place] [address]3 Product Strategy Director: Murtaza Arceo MD AST [Catalytic activity/Vol] 34 U/L Normal 10-35 [facility] Comment on above: Performed By: #### U AX, UHCG, UMICAO #### [facility] [address] [place], [place] [phone] Product Strategy Director: Murtaza Arceo MD Bilirubin [Mass/Vol] 0.3 mg/dL Normal 0.00-1.20 [facility] Comment on above: Performed By: #### U AX, UHCG, UMICAO #### [facility] [address] [place], [place] 8672783 Product Strategy Director: Murtaza Arceo MD BUN/CRE Ratio 17 Normal 9-20 [facility] Comment on above: Performed By: #### U AX, UHCG, UMICAO #### [facility] [address] [place] [address] Dr. [place], [place] [phone] Product Strategy Director: Murtaza Arceo MD Calcium [Mass/Vol] 9.9 mg/dL Normal 8.6-10.4 [facility] Comment on above: Performed By: #### U AX, UHCG, UMICAO #### [facility] [address] [place], [place] [phone] Product Strategy Director: Murtaza Arceo MD Chloride [Moles/Vol] 104 mmol/L Normal 98-107 [facility] Comment on above: Performed By: #### U AX, UHCG, UMICAO #### [facility] [address] [place], [place] [phone] Product Strategy Director: Murtaza Arceo MD CO2 [Moles/Vol] 24 mmol/L Normal 20-31 [facility] Comment on above: Performed By: #### U AX, UHCG, UMICAO #### [facility] [address] [place] [address] [place] [address] Product Strategy Director: Murtaza Arceo MD Creatinine [Mass/Vol] 0.7 mg/dL Normal 0.50-0.90 [facility] Comment on above: Performed By: #### [facility] UM[facility] #### [facility] [address] [place] [address] Product Strategy Director: Murtaza Arceo MD GFR/1.73 sq M.predicted among non-blacks MDRD (S/P/Bld) [Vol rate/Area] mL/min/{1.73_m2} Normal >60 [facility] Comment on above: Result Comment: These [...] affects renal tubular secretion. Performed By: #### [facility] SyedICAO #### [address] [place] [address] Product Strategy Director: Murtaza Arceo MD Glucose [Mass/Vol] 210 mg/dL High 74-99 [facility] Comment on above: Performed By: #### [facility], UMICAO #### [facility] [address] [place] [address] [place] [address] Product Strategy Director: Murtaza Arceo MD Potassium [Moles/Vol] 4.3 mmol/L Normal 3.7-5.3 [facility] Comment on above: Performed By: #### [facility], UMICAO #### [facility] [address] [place] [address] [place] [address] Product Strategy Director: Murtaza Arceo MD Protein [Mass/Vol] 7.4 g/dL Normal 6.6-8.7 [facility] Comment on above: Performed By: #### [facility], UMICAO #### [facility] [address] [place] [address] Product Strategy Director: Murtaza Arceo MD Sodium [Moles/Vol] 141 mmol/L Normal 136-145 [facility] Comment on above: Performed By: #### Gallo LOJA MORTEZA, CINDYO #### [facility] [address] [place] [address] Product Strategy Director: Murtaza Arceo MD Urea nitrogen [Mass/Vol] 12 mg/dL Normal 6-20 [facility] Comment on above: Performed By: #### Gallo LOJA [facility], EVELYN #### [facility] [address] [place] [address] Product Strategy Director: Murtaza Arceo MD [facility] Metabolic [facility] 07-07-2024 Albumin [Mass/Vol] 4.4 g/dL 3.5 - 5.2 g/dL [facility] Albumin/Globulin [Mass ratio] 1.5 {ratio} 1.0 - 2.5 [facility] ALP [Catalytic activity/Vol] 100 U/L 35 - 104 U/L [facility] ALT [Catalytic activity/Vol] 34 U/L 10 - 35 U/L [facility] Anion gap [Moles/Vol] 13 mmol/L 9 - 16 mmol/L [facility] AST [Catalytic activity/Vol] 34 U/L 10 - 35 U/L [facility] Bilirubin [Mass/Vol] 0.3 mg/dL 0.00 - 1.20 mg/dL [facility] Calcium [Mass/Vol] 9.9 mg/dL 8.6 - 10. 4 mg/dL [facility] Chloride [Moles/Vol] 104 mmol/L 98 - 10 7 mmol/L [facility] CO2 [Moles/Vol] 24 mmol/L 20 - 31 mmol/L [facility] Creatinine [Mass/Vol] 0.7 mg/dL 0.50 - 0.90 mg/dL [facility] Est, Amarilis Shanks Rate - PINF [facility] Comment on above: These results are not [...] 210 mg/dL High 74 - 99 mg/dL [facility] Potassium [Moles/Vol] 4.3 mmol/L 3.7 - 5.3 mmol/L [facility] Protein [Mass/Vol] 7.4 g/dL 6.6 - 8.7 g/dL [facility] Sodium [Moles/Vol] 141 mmol/L 136 - 145 mmol/L [facility] Urea nitrogen [Mass/Vol] 12 mg/dL 6 - 20 mg/dL [facility] Urea nitrogen/Creatinine [Mass ratio] 17 mg/mg 9 - 20 [facility] Glucose, Whole Bloodon 07-07 Glucose [Mass/Vol] 177 mg/dL High 74 - 100 mg/dL [facility] Interpretation and review of laboratory results Abnormal [facility] Glucose [Mass/Vol] 177 mg/dL High 74-100 [facility] Glucose [Mass/Vol] 169 mg/dL High 74 - 100 mg/dL [facility] Interpretation and review of laboratory results Abnormal [facility] Glucose [Mass/Vol] 169 mg/dL High 74-100 [facility] Lipaseon 07-07-2024 Lipase [Catalytic activity/Vol] 75 U/L High 13 - 60 U/L [facility] Lipase [Catalytic activity/Vol] 75 U/L High 13-60 [facility] Comment on above: Performed By: #### U FREEDOM, EVELYN PRO #### [facility] [address] [place] [address] Product Strategy Director: Murtaza Arceo MD MHPT GLUCOSE, WHOLE BLOODon 07-07-2024 Glucose [Mass/Vol] 169 mg/dL High 74 - 100 mg/dL [facility] Interpretation and review of laboratory results Abnormal [facility] Original Ordering Provider: DEDRA SCHILLING MD [facility] Microscopic Urinalysison Bacteria LM Ql (Urine sed) TRACE Abnormal None [facility] Epithelial cells LM.HPF (Urine sed) [#/Area] 0 TO 2 [facility] Interpretation and review of laboratory results Abnormal [facility] RBC LM.HPF (Urine sed) [#/Area] None [facility] WBC LM.HPF (Urine sed) [#/Area] None [facility] No Panel Informationon 07-07 Interpretation and review of laboratory results Abnormal [facility] UA w/Reflex Cultureon 2023 Bilirubin, SemiQt,Ur Negative Normal NEG [facility] Comment on above: Performed By: #### U AX, CG, UMICAO #### [facility] [address] [place] [address] [place] [address] Product Strategy Director: Murtaza Arceo MD Blood, Urine Negative Normal NEG [facility] Comment on above: Performed By: #### U AX, UHCG, UMICAO #### [facility] [address] [place] [address] [place] [address] Product Strategy Director: Murtaza Arceo MD Clarity (U) Clear Normal CLEAR [facility] Comment on above: Performed By: #### U AX, UHCG, UMICAO #### [facility] [address] [place] [address] Product Strategy Director: Murtaza Arceo MD Color (U) Yellow Normal YEL [facility] Comment on above: Performed By: #### U AX, UHCG, UMICAO #### [facility] [address] [place], [place] [phone] Product Strategy Director: Murtaza Arceo MD Glucose Ql (U) 3+ mg/dL Abnormal NEG [facility] Comment on above: Performed By: #### U AX, UHCG, UMICAO #### [facility] [address] [place] [address] Dr. [place], [place] [phone] Product Strategy Director: Murtaza Arceo MD Ketones Ql (U) Negative Normal NEG [facility] Comment on above: Performed By: #### U AX, UHCG, UMICAO #### [facility] [address] [place] [address] Dr. [place], [place] [phone] Product Strategy Director: Murtaza Arceo MD Leukocyte esterase Test strip Ql (U) Negative Normal NEG [facility] Comment on above: Performed By: #### U AX, UHCG, UMICAO #### [facility] [address] [place] [address] Dr. [place], [place] [phone] Product Strategy Director: Murtaza Arceo MD Nitrite,Ur Negative Normal [facility] Comment on above: Performed By: #### U AX, CG, UMICAO #### [facility] [address] [place] [address] Dr. [place], [place] [phone] Product Strategy Director: Murtaza Arceo MD PH,Ur 6.0 Normal 5.0-9.0 [facility] Comment on above: Performed By: #### U AX, UHCG, UMICAO #### [facility] [address] [place] [address] Dr. [place], [place] [phone] Product Strategy Director: Murtaza Arceo MD Protein Ql (U) Negative Normal NEG [facility] Comment on above: Performed By: #### U AX, UHCG, UMICAO #### [facility] [address] [place] [address] Dr. [place], [place] [phone] Product Strategy Director: Murtaza Arceo MD Spec. Onyx,Ur 1.020 Normal 1.010-1.020 [facility] Comment on above: Performed By: #### [facility], EVELYN #### [facility] [address] [place] [address] Product Strategy Director: Murtaza Arceo MD Urobilinogen,Ur Normal Normal 0.0-1.0 [facility] Comment on above: Performed By: #### [facility], EVELYN #### [facility] [address] [place] [address] Product Strategy Director: Murtaza Arceo MD Urinalysis with Reflex to Cu ltureon 07-07-2024 Bilirubin Ql (U) Negative [facility] Clarity (U) Clear Clear [facility] Color (U) Yellow Yellow [facility] Glucose Test strip (U) [Mass/Vol] 3+ Abnormal NEGATIVE mg/dL [facility] Hemoglobin Auto test strip Ql (U) Negative NEGATIVE [facility] Interpretation and review of laboratory results Abnormal [facility] Ketones (U) [Mass/Vol] Negative NEGAT SIMA mg/dL [facility] Leukocyte esterase Test strip Ql (U) Negative NEGATIVE [facility] Nitrite Ql (U) Negative NEGATIVE [facility] pH (U) 6.0 [pH] 5.0 - 9.0 [facility] Protein (U) [Mass/Vol] Negative NEGAT SIMA mg/dL [facility] Specific gravity (U) [Rel density] 1.020 1.010 - 1.020 [facility] Urobilinogen Qn (U) Normal 0.0 - 1. 0 EU/dL [facility] Urinalysis,Microon 4 Bacteria TRACE Abnormal NONE [facility] Comment on above: Performed By: #### U [facility], EVELYN #### [facility] [address] [place] [address] Product Strategy Director: Murtaza Arceo MD Epithelial cells LM Ql (Urine sed) 0 TO 2 Normal 0-25 [facility] Comment on above: Performed By: #### U AX, UHCG, UMICAO #### [facility] [address] [place] [address] Product Strategy Director: Murtaza Arceo MD Urine RBC's None Normal 0-2 [facility] Comment on above: Performed By: #### U AX, UHCG, UMICAO #### [facility] [address] [place] [address] Product Strategy Director: Murtaza Arceo MD Urine WBC's None Normal 0-5 [facility] Comment on above: Performed By: #### U AX, UHCG, UMICAO #### [facility] [address] [place] [address] Product Strategy Director: Murtaza Arceo MD ED Note-Physicianon 07-06-20 [...] the gastroparesis. She will follow-up with her dry wall applicator in the next 2 to 3 days. [...] day(s), # 20 tab(s), Refills(s) 0, Pharmacy: [facility] [id number], 173, cm, 07/05/24 17:47:00 EDT, Height/Length Dosing, [...] Blue Tu (more content not included)... Normal [facility] Comment on above: Result Comment: Elec [...] mGy = na DAP = na Normal [facility] BMPon 07-05-2024 Anion gap [Moles/Vol] 15 mmol/L Normal 6-16 [facility] Comment on above: Performed By: #### 2 [id number] #### [facility] [address] [place] [address] Calcium [Mass/Vol] 9.2 mg/dL Normal 8.9-11.1 [facility] Comment on above: Performed By: #### 2 [id number] #### [facility] [address] [place] [address] Chloride [Moles/Vol] 106 mmol/L Normal 101-111 [facility] Comment on above: Performed By: #### 2 [id number] #### [facility] [address] [place] [address] CO2 [Moles/Vol] 20 mmol/L Low 21-31 [facility] Comment on above: Performed By: #### 2 [id number] #### [facility] [address] [place] [address] Creatinine [Mass/Vol] 0.8 mg/dL Normal 0.5-1.3 [facility] Comment on above: Performed By: #### 2 [id number] #### [facility] [address] [place] [address] Glucose [Mass/Vol] 273 mg/dL High 55-199 [facility] Comment on above: Performed By: #### 2 [id number] #### [facility] [address] [place] [address] Potassium [Moles/Vol] 4.0 mmol/L Normal 3.5-5.3 [facility] Comment on above: Performed By: #### 2 [id number] #### [facility] [address] [place] [address] Sodium [Moles/Vol] 137 mmol/L Normal 135-145 [facility] Comment on above: Performed By: #### 2 [id number] #### [facility] [address] [place] [address] Urea nitrogen [Mass/Vol] 16 mg/dL Normal 5-21 [facility] Comment on above: Performed By: #### 2 [id number] #### [facility] [address] [place] [address] Urea nitrogen/Creatinine [Mass ratio] 20 No Units Normal 10-20 [facility] Comment on above: Performed By: #### 2 [id number] #### [facility] [address] [place] [address] CBC w/ Auto Diffon 4 Basophils/100 WBC (Bld) 0.8 % Normal 0.0-2.0 [facility] Comment on above: Performed By: #### 2 [id number] #### [facility] [address] [place] [address] Basophils/Leukocytes Auto (Bld) [Pure # fraction] 0.1 E9/L Normal 0.0-0.2 [facility] Comment on above: Performed By: #### 2 [id number] #### [facility] [address] [place] [address] Eosinophils (Bld) [#/Vol] 0.2 E9/L Normal 0.0-0.5 [facility] Comment on above: Performed By: #### 2 661758 #### [facility] [address] [place] [address] Eosinophils/100 WBC (Bld) 1.3 % Normal 0.0-8.0 [facility] Comment on above: Performed By: #### 2 [id number] #### [facility] [address] [place] [address] Erythrocyte distribution width (RBC) [Ratio] 13.8 % Normal 10.9-14.2 [facility] Comment on above: Performed By: #### 2 [id number] #### [facility] [address] [place] [address] Hematocrit (Bld) [Volume fraction] 41.2 % Normal 34.0-46.0 [facility] Comment on above: Performed By: #### 2 [id number] #### [facility] [address] [place] [address] Hemoglobin (Bld) [Mass/Vol] 14.3 g/dL Normal 12.0-16.0 [facility] Comment on above: Performed By: #### 2 [id number] #### [facility] [address] [place] [address] Lymphocytes (Bld) [#/Vol] 3.4 E9/L Normal 1.0-4.0 [facility] Comment on above: Performed By: #### 2 954524 #### [facility] [address] [place] [address] Lymphocytes/100 WBC (Bld) 29.4 % Normal 14.0-50.0 [facility] Comment on above: Performed By: #### 2 288938 #### [facility] [address] [place] [address] MCH (RBC) [Entitic mass] 30.9 pg Normal 27.0-34.0 [facility] Comment on above: Performed By: #### 2 [id number] #### [facility] [address] [place] [address] MCHC (RBC) [Mass/Vol] 34.8 g/dL Normal 31.4-36.0 [facility] Comment on above: Performed By: #### 2 580420 #### [facility] [address] [place] [address] MCV (RBC) [Entitic vol] 88.6 fL Normal 80.0-100.0 [facility] Comment on above: Performed By: #### 2 455701 #### [facility] [address] [place] [address] Monocytes (Bld) [#/Vol] 0.5 E9/L Normal 0.2-1.0 [facility] Comment on above: Performed By: #### 2 625952 #### [facility] [address] [place] [address] Neutrophils (Bld) [#/Vol] 7.4 E9/L Normal 2.0-7.5 [facility] Comment on above: Performed By: #### 2 592550 #### [facility] [address] [place] [address] Neutrophils/100 WBC (Bld) 64.1 % Normal 36.0-75.0 [facility] Comment on above: Performed By: #### 2 522263 #### [facility] [address] [place] [address] Platelet mean volume (Bld) [Entitic vol] 9.8 fL Normal 6.4-10.8 [facility] Comment on above: Performed By: #### 2 965922 #### [facility] [address] [place] [address] Platelets (Bld) [#/Vol] 308.0 E9/L Normal 150.0-500.0 [facility] Comment on above: Performed By: #### 2 887594 #### [facility] [address] [place] [address] RBC (Bld) [#/Vol] 4.7 E12/L Normal 4.3-5.9 [facility] Comment on above: Performed By: #### 2 055665 #### [facility] [address] [place] [address] WBC corrected for nucl RBC Auto (Bld) [#/Vol] 11.5 E9/L High 4.0-11.0 [facility] Comment on above: Performed By: #### 2 [id number] #### [facility] [address] [place] [address] CHEMISTRYOrdered By: SYSTEM SYSTEM on 07-05-2024 Albumin [...] 2023 ED Clinical Summary ED Clinical Summary [address] [address] ED Clinical Summary Person Information Name: GAEL RUBY/[place] Age: 28 Years : 1995 Sex: Female Language: [place] PCP: YOSSI GOLDEN MD Marital Status: Visit [...] 07/05/2024 23:13:20 07/05/2024 23:13:20 07/05/2024 23:13:20 ADDRESS: [address] [place] [phone] PHYS DOC NOTES: MEDICAL INFORMATION: Prescriptions Given: Medications to Continue Taking That Have Changed [facility] [id number], [address], [place] [id number], [phone] START: metoclopramide (metoclopramide 10 mg Tab) 1 [...] Adult Follow up: With: Address: When: Aly Rizzo [place] [address], [address], [address] [phone] Business (1) In 3 days 07/08/2024 Comments: Call to schedule a follow-up appointment with the dry wall applicator in the next 2 to 3 days. Use the metoclopramide as needed for gastroparesis symptoms. Return to ED with any new or worsening symptoms (more content not included)... Normal [facility] ED Patient Summaryon 024 ED Patient Summary ED Patient Summary [address] [address] Patient Discharge Instructions Person Information Name: GAEL RUBY Age: 28 Years Arrival Date: 07/05/2024 17:39:24 Discharge Diagnosis: Abdominal pain, acute; Gastroparesis; Nausea Primary Care Physician: YOSSI GOLDEN MD Provider Information Primary Provider: Cameron Conklin DO Advanced Hydrostatic Tubing Tester:Mouna Quintanilla PA-C The exam and treatment you received in the Emergency Department were for an urgent problem and are not intended as complete care. It is important that you follow up with a doctor, nurse practitioner, or physician?s occupational therapist's assistant for ongoing care. If your symptoms [...] Follow-up Instructions: With: Address: When: Aly Beverly [address] [place] [address], [facility] [address] [phone] Business (1) In 3 days 07/08/2024 Comments: Call to schedule a follow-up appointment with the dry wall applicator in the next 2 to 3 days. Use the metoclopramide as needed for gastroparesis symptoms. Return to ED with any new or worsening symptoms. With: Address: When: YOSSI GOLDEN [address] [place], [place] [phone] Business (1) In 3 days In the event that this physician does not participate in your insurance network, please consult with your insurance company to find a nearby participating provider. Patient Education Materials: Abdominal Pain, Adult A MESSAGE TO ALL PATIENTS REGARDING OPIOIDS PRESCRIPTION OPIOIDS: WHAT YOU NEED TO KNOW Prescription opioids can be used to help relieve htujjekn-cx-gcaxxm pain and are often prescribed following a [...] program, or (more content not included)... Normal [facility] Extra Blueon 07-05-2024 Tube Collected Plasma Yes Invalid Interpretation Code [facility] Comment on above: Performed By: #### 1 [id number] #### [facility] [address] [place] [address] HEMATOLOGYOrdered By: SYSTEM SYSTEM on 07-05-2024 Basophils/100 [...] 07-05-2024 Albumin [Mass/Vol] 4.2 g/dL Normal 3.3-5.0 [facility] Comment on above: Performed By: #### 2 [id number] #### [facility] [address] [place] [address] Albumin/Globulin (S) [Mass conc ratio] 1.4 Normal 1.1-2.2 [facility] Comment on above: Performed By: #### 2 [id number] #### [facility] [address] [place] [address] ALP [Catalytic activity/Vol] 82 Int._Unit/L Normal 21-98 [facility] Comment on above: Performed By: #### 2 [id number] #### [facility] [address] [place] [address] ALT No additional P-5'-P [Catalytic activity/Vol] 26 Int._Unit/L Normal 6-46 [facility] Comment on above: Performed By: #### 2 556395 #### [facility] [address] [place] [address] AST [Catalytic activity/Vol] 17 Int._Unit/L Normal 5-43 [facility] Comment on above: Performed By: #### 2 [id number] #### [facility] [address] [place] [address] Bilirubin [Mass/Vol] 0.3 mg/dL Normal 0.0-1.1 [facility] Comment on above: Performed By: #### 2 738462 #### [facility] [address] [place] [address] Bilirubin.direct [Mass/Vol] 0.0 mg/dL Normal 0.0-0.4 [facility] Comment on above: Performed By: #### 2 146835 #### [facility] [address] [place] [address] Bilirubin.indirect [Mass or moles/Vol] 0.3 mg/dL Normal 0.1-0.9 [facility] Comment on above: Performed By: #### 2 794266 #### [facility] [address] [place] [address] Globulin (S) [Mass/Vol] 3.1 g/dL Normal 1.4-4.0 [facility] Comment on above: Performed By: #### 2 787297 #### [facility] [address] [place] [address] Protein [Mass/Vol] 7.3 g/dL Normal 6.0-7.8 [facility] Comment on above: Performed By: #### 2 [id number] #### [facility] [address] [place] [address] Lipase Levelon 07-05-2024 Lipase [Catalytic activity/Vol] 91 U/L High -58 [facility] Comment on above: Performed By: #### 2 [id number] #### [facility] [address] [place] [address] UA with Cult Rflxon 07-05-20 24 Bilirubin Ql (U) Negative Normal Negative [facility] Comment on above: Performed By: #### 4 [id number] #### [facility] [address] [place] [address] Clarity (U) Clear Normal Clear [facility] Comment on above: Performed By: #### 4 [id number] #### [facility] [address] [place] [address] Color (U) Colorless Abnormal Yellow [facility] Comment on above: Result Comment: Micr oscopic readings are only performed on those samples that meet specific criteria set forth by [facility]. Performed By: #### 4 [id number] #### [facility] [address] [place] [address] Glucose Ql (U) 4+ mg/dL Abnormal Negative [facility] Comment on above: Performed By: #### 4 [id number] #### [facility] [address] [place] [address] Hemoglobin Auto test strip (U) [Mass/Vol] Negative Normal Negative [facility] Comment on above: Performed By: #### 4 [id number] #### [facility] [address] [place] [address] Ketones Auto test strip Ql (U) Negative Normal Negative [facility] Comment on above: Performed By: #### 4 [id number] #### [facility] [address] [place] [address] Leukocyte esterase Auto test strip Ql (U) Negative Normal Negative [facility] Comment on above: Performed By: #### 4 [id number] #### [facility] [address] [place] [address] Nitrite Auto test strip Ql (U) Negative Normal Negative [facility] Comment on above: Performed By: #### 4 [id number] #### [facility] [address] [place] [address] pH (U) 5.5 [pH] Invalid Interpretation Code 5.0-9.0 [facility] Comment on above: Performed By: #### 4 [id number] #### [facility] [address] [place] [address] Protein Ql (U) Negative Normal Negative [facility] Comment on above: Performed By: #### 4 [id number] #### [facility] [address] [place] [address] Specific gravity (U) [Rel density] 1.041 Invalid Interpretation Code 1.005-1.030 [facility] Comment on above: Performed By: #### 4 [id number] #### [facility] [address] [place] [address] Urobilinogen (U) [Mass/Vol] Negative Normal Negative [facility] Comment on above: Performed By: #### 4 [id number] #### [facility] [address] [place] [address] Type of Urine collection method Clean Catch Normal [facility] Comment on above: Performed By: #### 4 [id number] #### [facility] [address] [place] [address] URINALYSISOrdered By: SYSTEM SYSTEM on 07-05-2024 Bilirubin Ql (U) Negative Normal Negativemg/ dL [facility] UA Auto SS Clarity (U) Clear (07/05/24 6:35 PM) Normal Clear [facility] UA Auto SS Color (U) Colorless 1 *ABN* (07/05/24 6:35 PM) Invalid Interpretation Code [facility]A Auto SS Comment on above: Interpretive Data: M icroscopic readings are only performed on those samples that meet specific criteria set forth by [facility]. Glucose Ql (U) 4+ mg/dL Invalid [...] PM) Invalid Interpretation Code 5.0 - 9.0 [facility] UA Auto SS Protein Ql (U) Negative Normal Negativemg/ dL [facility] UA Auto SS Specific gravity (U) [Rel density] 1.041 *NA* (07/05/24 6:35 PM) Invalid Interpretation Code 1.005 - 1.030 [facility] UA Auto SS Urobilinogen (U) [Mass/Vol] Negative Normal Negativemg/ dL [facility] UA Auto SS URINALYSISOrdered By: Mouna Quintanilla on 07-05-2024 UA Spec Desc Clean Catch (07/05/24 6:35 PM) Normal [facility] UA Auto SS eGFRon 07-05-2024 eGFR 102 mL/min/1.73 m2 Normal >=59 [facility] Comment on above: Performed By: #### 1 [id number] #### [facility] [address] [place] [address] Diabetic Office/Clinic Noteo n 06-23-2024 Diabetic Office/Clinic [...] gestational diabetes for 3 pregnancies in 2015, 2018 (treated with metformin both pregnancies) and 2019 [...] Lunch: Dinner (more content not included)... Normal [facility] Diabetic Office/Clinic Note [facility] [address] [place], [address] Gael Ruby Birthdate: 1995 CGM DEVICE: [...] signed by Merrill Smalls 06/23/24 15:18 EDT Normal [facility] Provider Letteron 06-23-2024 Provider Letter Yossi Golden MD [address] [place] [address] Re: Gael Ruby Date of Visit: 06/23/2024 Dear Yossi Golden MD, Let me know if you have any questions or concerns. Sincerely, DELLA Taylor C Providers: The following document(s) were included in the letter: June 23, 2024 15:19:00 EDT - (06/23/2024) Office Visit Note Normal [facility] BMPon 06-20-2024 Anion gap [Moles/Vol] 14 mmol/L Normal 6-16 [facility] Comment on above: Performed By: #### 2 [id number] #### [facility] [address] [place] [address] Calcium [Mass/Vol] 9.0 mg/dL Normal 8.9-11.1 [facility] Comment on above: Performed By: #### 2 [id number] #### [facility] [address] [place] [address] Chloride [Moles/Vol] 104 mmol/L Normal 101-111 [facility] Comment on above: Performed By: #### 2 [id number] #### [facility] [address] [place] [address] CO2 [Moles/Vol] 22 mmol/L Normal 21-31 [facility] Comment on above: Performed By: #### 2 [id number] #### [facility] [address] [place] [address] Creatinine [Mass/Vol] 0.8 mg/dL Normal 0.5-1.3 [facility] Comment on above: Performed By: #### 2 [id number] #### [facility] [address] [place] [address] Glucose [Mass/Vol] 340 mg/dL High 55-199 [facility] Comment on above: Performed By: #### 2 578462 #### [facility] [address] [place] [address] Potassium [Moles/Vol] 4.1 mmol/L Normal 3.5-5.3 [facility] Comment on above: Performed By: #### 2 489859 #### [facility] [address] [place] [address] Sodium [Moles/Vol] 136 mmol/L Normal 135-145 [facility] Comment on above: Performed By: #### 2 [id number] #### [facility] [address] [place] [address] Urea nitrogen [Mass/Vol] 12 mg/dL Normal 5-21 [facility] Comment on above: Performed By: #### 2 [id number] #### [facility] [address] [place] [address] Urea nitrogen/Creatinine [Mass ratio] 15 No Units Normal 10-20 [facility] Comment on above: Performed By: #### 2 [id number] #### [facility] [address] [place] [address] CBC w/ Auto Diffon 4 Basophils/100 WBC (Bld) 1.0 % Normal 0.0-2.0 [facility] Comment on above: Performed By: #### 2 [id number] #### [facility] [address] [place] [address] Basophils/Leukocytes Auto (Bld) [Pure # fraction] 0.1 E9/L Normal 0.0-0.2 [facility] Comment on above: Performed By: #### 2 [id number] #### [facility] [address] [place] [address] Eosinophils (Bld) [#/Vol] 0.3 E9/L Normal 0.0-0.5 [facility] Comment on above: Performed By: #### 2 [id number] #### [facility] [address] [place] [address] Eosinophils/100 WBC (Bld) 2.7 % Normal 0.0-8.0 [facility] Comment on above: Performed By: #### 2 [id number] #### [facility] [address] [place] [address] Erythrocyte distribution width (RBC) [Ratio] 13.5 % Normal 10.9-14.2 [facility] Comment on above: Performed By: #### 2 [id number] #### [facility] [address] [place] [address] Hematocrit (Bld) [Volume fraction] 39.7 % Normal 34.0-46.0 [facility] Comment on above: Performed By: #### 2 [id number] #### [facility] [address] [place] [address] Hemoglobin (Bld) [Mass/Vol] 13.8 g/dL Normal 12.0-16.0 [facility] Comment on above: Performed By: #### 2 [id number] #### [facility] [address] [place] [address] Lymphocytes (Bld) [#/Vol] 3.1 E9/L Normal 1.0-4.0 [facility] Comment on above: Performed By: #### 2 360976 #### [facility] [address] [place] [address] Lymphocytes/100 WBC (Bld) 29.9 % Normal 14.0-50.0 [facility] Comment on above: Performed By: #### 2 [id number] #### [facility] [address] [place] [address] MCH (RBC) [Entitic mass] 31.0 pg Normal 27.0-34.0 [facility] Comment on above: Performed By: #### 2 [id number] #### [facility] [address] [place] [address] MCHC (RBC) [Mass/Vol] 34.8 g/dL Normal 31.4-36.0 [facility] Comment on above: Performed By: #### 2 [id number] #### [facility] [address] [place] [address] MCV (RBC) [Entitic vol] 89.1 fL Normal 80.0-100.0 [facility] Comment on above: Performed By: #### 2 [id number] #### [facility] [address] [place] [address] Monocytes (Bld) [#/Vol] 0.4 E9/L Normal 0.2-1.0 [facility] Comment on above: Performed By: #### 2 [id number] #### [facility] [address] [place] [address] Neutrophils (Bld) [#/Vol] 6.4 E9/L Normal 2.0-7.5 [facility] Comment on above: Performed By: #### 2 [id number] #### [facility] [address] [place] [address] Neutrophils/100 WBC (Bld) 62.2 % Normal 36.0-75.0 [facility] Comment on above: Performed By: #### 2 [id number] #### [facility] [address] [place] [address] Platelet mean volume (Bld) [Entitic vol] 9.1 fL Normal 6.4-10.8 [facility] Comment on above: Performed By: #### 2 [id number] #### [facility] [address] [place] [address] Platelets (Bld) [#/Vol] 286.0 E9/L Normal 150.0-500.0 [facility] Comment on above: Performed By: #### 2 [id number] #### [facility] [address] [place] [address] RBC (Bld) [#/Vol] 4.5 E12/L Normal 4.3-5.9 [facility] Comment on above: Performed By: #### 2 [id number] #### [facility] [address] [place] [address] WBC corrected for nucl RBC Auto (Bld) [#/Vol] 10.3 E9/L Normal 4.0-11.0 [facility] Comment on above: Performed By: #### 2 [id number] #### [facility] [address] [place] [address] CHEMISTRYOrdered By: Lab ROP User on 06-20-2024 Glucose [Mass/Vol] 149 mg/dL High 55 - 99 mg/dL [facility] POC Subsection Comment on above: Result Comment: Hayden us RN/ POC Device SN [id number] Invalid Interpretation Code [facility] POC Subsection POC User ID [id number] Invalid Interpretation Code [facility] POC Subsection POC Username [email or web address] Invalid Interpretation Code [facility] POC Subsection CHEMISTRYOrdered By: SYSTEM SYSTEM on [...] 05-25 Glucose [Mass/Vol] 149 mg/dL High 55-99 [facility] Comment on above: Result Comment: Hayden us RN/ Performed By: #### 2 [id number] #### [facility] [address] [place] [address] ED Clinical Summaryon 2023 ED Clinical Summary ED Clinical Summary [address] [address] ED Clinical Summary Person Information Name: GAEL RUBY/[facility] Age: 28 Years : 1995 Sex: Female Language: [place] PCP: YOSSI GOLDEN MD Marital Status: Visit [...] 06/20/2024 23:48:19 06/20/2024 23:48:19 06/20/2024 23:48:19 ADDRESS: [address] [place] [phone] [facility] DOC NOTES: MEDICAL INFORMATION: Prescriptions Given: Medications [...] With: Address: When: YOSSI GOLDEN [address] [place], [place] [id number] Business (1) In 3 days DIAGNOSIS: Epigastric abdominal pain; Gastroparesis Normal [facility] ED Note-Physicianon 06-20-20 ED Note-Physician ED Note-Physician Basic Information Time Seen: Tonny Butler DO 06/20/2024 18:55 Chief Complaint Pt states she [...] and Complexity of Problems Differential Diagnosis: [] [facility] Data External documents reviewed: N/A My EKG [...] Deniz 50 mL [F] 50 mL + [id number] [F] 12.5 mg, IV Piggyback Disposition Plan Discharge Prescription List Prescriptions No active prescription medications Follow-up With When Contact Information YOSSI GOLDEN In 3 days [address] [place] [address] Business (1) (more content not included)... Normal [facility] Comment on above: Result Comment: Elec tronically Signed By: Tonny Butler DO\.br\Date and Time Signed: 06/20/24 23:02 EDT ED Patient Summaryon 024 ED Patient Summary ED Patient Summary [place] [id number] Patient Discharge Instructions Person Information Name: GAEL RUBY Age: 28 Years Arrival Date: 06/20/2024 18:41:42 Discharge Diagnosis: Epigastric abdominal pain; Gastroparesis Primary Care Physician: YOSSI GOLDEN MD Provider Information Primary Provider: Tonny Butler DO Advanced Hydrostatic Tubing Tester:None The exam and treatment you received in the Emergency Department were for an urgent problem and are not intended as complete care. It is important that you follow up with a doctor, nurse practitioner, or physician?s occupational therapist's assistant for ongoing care. If your symptoms [...] With: Address: When: YOSSI GOLDEN [address], [place] [phone] Business (1) In 3 days In the event that this physician does not participate in your insurance network, please consult with your insurance company to find a nearby participating provider. Patient Education Materials: Gastroparesis A MESSAGE TO ALL PATIENTS REGARDING OPIOIDS PRESCRIPTION OPIOIDS: WHAT YOU NEED TO KNOW Prescription opioids can be used to help relieve xgmlbqeb-xp-effqir pain and are often prescribed following a [...] be struggling with addiction, tell your health care support representative and ask for guidance or call SAMHSA?S National Helpline at 3-356-347-HELP. v [facility] (more content not included)... Normal [facility] Extra Blueon 06-20-2024 Tube Collected Plasma Yes Invalid Interpretation Code [facility] Comment on above: Performed By: #### 1 [id number] #### [facility] [address] [place] [address] HEMATOLOGYOrdered By: SYSTEM SYSTEM on 06-20-2024 Basophils/100 [...] 06-20-2024 Albumin [Mass/Vol] 4.1 g/dL Normal 3.3-5.0 [facility] Comment on above: Performed By: #### 2 [id number] #### [facility] [address] [place] [address] Albumin/Globulin (S) [Mass conc ratio] 1.4 Normal 1.1-2.2 [facility] Comment on above: Performed By: #### 2 [id number] #### [facility] [address] [place] [address] ALP [Catalytic activity/Vol] 74 Int._Unit/L Normal 21-98 [facility] Comment on above: Performed By: #### 2 [id number] #### [facility] [address] [place] [address] ALT No additional P-5'-P [Catalytic activity/Vol] 46 Int._Unit/L Normal 6-46 [facility] Comment on above: Performed By: #### 2 [id number] #### [facility] [address] [place] [address] AST [Catalytic activity/Vol] 47 Int._Unit/L High 5-43 [facility] Comment on above: Performed By: #### 2 [id number] #### [facility] [address] [place] [address] Bilirubin [Mass/Vol] 0.5 mg/dL Normal 0.0-1.1 [facility] Comment on above: Performed By: #### 2 [id number] #### [facility] [address] [place] [address] Bilirubin.direct [Mass/Vol] 0.0 mg/dL Normal 0.0-0.4 [facility] Comment on above: Performed By: #### 2 [id number] #### [facility] [address] [place] [address] Bilirubin.indirect [Mass or moles/Vol] 0.5 mg/dL Normal 0.1-0.9 [facility] Comment on above: Performed By: #### 2 [id number] #### [facility] [address] [place] [address] Globulin (S) [Mass/Vol] 3.0 g/dL Normal 1.4-4.0 [facility] Comment on above: Performed By: #### 2 [id number] #### [facility] [address] [place] [address] Protein [Mass/Vol] 7.1 g/dL Normal 6.0-7.8 [facility] Comment on above: Performed By: #### 2 [id number] #### [facility] [address] [place] [address] Lipase Levelon 06-20-2024 Lipase [Catalytic activity/Vol] 100 U/L High 13-58 [facility] Comment on above: Performed By: #### 2 [id number] #### [facility] [address] [place] [address] SEROLOGYOrdered By: Nehal Toscano on 06-20-2024 HCG.beta subunit (U) [Moles/Vol] Negative Normal [facility] Man Sero U BetaHcg Qualon 06-20-2024 HCG.beta subunit (U) [Moles/Vol] Negative Normal [facility] Comment on above: Performed By: #### 2 [id number] #### [facility] [address] [place] [address] UA with Cult Rflxon 06-20-20 24 Bilirubin Ql (U) Negative Normal Negative [facility] Comment on above: Performed By: #### 4 [id number] #### [facility] [address] [place] [address] Clarity (U) Clear Normal Clear [facility] Comment on above: Performed By: #### 4 [id number] #### [facility] [address] [place] [address] Color (U) Light-Yellow Normal Yellow [facility] Comment on above: Result Comment: Micr oscopic readings are only performed on those samples that meet specific criteria set forth by [facility]. Performed By: #### 4 [id number] #### [facility] [address] [place] [address] Glucose Ql (U) 4+ mg/dL Abnormal Negative [facility] Comment on above: Performed By: #### 4 [id number] #### [facility] [address] [place] [address] Hemoglobin Auto test strip (U) [Mass/Vol] Negative Normal Negative [facility] Comment on above: Performed By: #### 4 [id number] #### [facility] [address] [place] [address] Ketones Auto test strip Ql (U) Trace Abnormal Negative [facility] Comment on above: Performed By: #### 4 [id number] #### [facility] [address] [place] [address] Leukocyte esterase Auto test strip Ql (U) Negative Normal Negative [facility] Comment on above: Performed By: #### 4 [id number] #### [facility] [address] [place] [address] Nitrite Auto test strip Ql (U) Negative Normal Negative [facility] Comment on above: Performed By: #### 4 [id number] #### [facility] [address] [place] [address] pH (U) 5.5 [pH] Invalid Interpretation Code 5.0-9.0 [facility] Comment on above: Performed By: #### 4 [id number] #### [facility] [address] [place] [address] Protein Ql (U) Negative Normal Negative [facility] Comment on above: Performed By: #### 4 [id number] #### [facility] [address] [place] [address] Specific gravity (U) [Rel density] 1.029 Invalid Interpretation Code 1.005-1.030 [facility] Comment on above: Performed By: #### 4 [id number] #### [facility] [address] [place] [address] Urobilinogen (U) [Mass/Vol] Negative Normal Negative [facility] Comment on above: Performed By: #### 4 [id number] #### [facility] [address] [place] [address] Type of Urine collection method Clean Catch Normal [facility] Comment on above: Performed By: #### 4 [id number] #### [facility] [address] [place] [address] URINALYSISOrdered By: SYSTEM SYSTEM on 06-20-2024 Bilirubin Ql (U) Negative Normal Negativemg/ dL [facility] UA Auto SS Clarity (U) Clear (06/20/24 8:27 PM) Normal Clear [facility] UA Auto SS Color (U) Light-Yellow 1 (06/20/24 8:27 PM) Normal Yellow [facility] UA Auto SS Comment on above: Interpretive Data: M icroscopic readings are only performed on those samples that meet specific criteria set forth by [facility]. Glucose Ql (U) 4+ mg/dL Invalid Interpretation Code Negativemg/ dL FT UA Auto SS Hemoglobin Auto test strip (U) [Mass/Vol] Negative Normal Negativemg/ dL FT UA Auto SS Ketones Auto test strip Ql (U) Trace mg/dL Invalid Interpretation Code Negativemg/ dL FT UA Auto SS Leukocyte esterase Auto test strip Ql (U) Negative Normal NegativeLeu /uL [facility] UA Auto SS Nitrite Auto test strip Ql (U) Negative Normal Negativemg/ dL FT UA Auto SS pH (U) 5.5 *NA* (06/20/24 8:27 PM) Invalid Interpretation Code 5.0 - 9.0 [facility] UA Auto SS Protein Ql (U) Negative Normal Negativemg/ dL [facility] UA Auto SS Specific gravity (U) [Rel density] 1.029 *NA* (06/20/24 8:27 PM) Invalid Interpretation Code 1.005 - 1.030 [facility] UA Auto SS Urobilinogen (U) [Mass/Vol] Negative Normal Negativemg/ dL [facility] UA Auto SS URINALYSISOrdered By: Tonny cameron on 06-20-2024 UA Spec Desc Clean Catch (06/20/24 8:27 PM) Normal [facility] UA Auto SS eGFRon 06-20-2024 eGFR 102 mL/min/1.73 m2 Normal >=59 [facility] Comment on above: Performed By: #### 1 [id number] #### [facility] [address] [place] [address] COV19 Rapidon 06-14-2024 LAB ONLY Result Called? No Normal [facility] Comment on above: Performed By: #### . Automated Diff #### [address] [address] Reason for Rapid Test Inpatient Normal [facility] Comment on above: Performed By: #### . Automated Diff #### [address] [address] SARS-CoV-2 (COVID-19) RNA ABRAHAM+probe Ql (Unsp spec) Negative Normal Negative [facility] Comment on above: Result Comment: This test [...] Performed By: #### . Automated Diff #### [address] [address] ED Clinical Summaryon 2023 ED Clinical Summary [address] [address] ED Clinical Summary Person Information Name: Gael Ruby/[facility] Age: 28 Years : 1995 Sex: Female PCP: Chantel GREWAL, Yossi Bustillo Marital Status: Phone: Race: White Ethnicity: Not or Language: [place] Korean Visit Reason: Abdominal pain; Cough; upper respiratory infection Acuity: 3 Enc Type: Emergency Med Service: Emergency Medicine Arrival: 06/14/2024 15:00:32 Discharge: 06/14/2024 18:15:00 LOS: 000 03:15 Checkin: 06/14/2024 15:00:32 Checkout: 06/14/2024 18:15:00 Dispo Type: Home or Self Care Address: [address] [place] [phone] Provider Notes: Diagnosis: 1:Upper respiratory infection; 2:Nausea [...] 1 mg/7 (more content not included)... Normal [facility] ED Note-Physicianon 06-14-20 ED Note-Physician Chief Complaint [...] section Local anaesthetic infiltration of tear duct [place] Tooth extraction (2009) Oopherectomy (06/2010) Tonsillectomy and [...] Saturday Zo (more content not included)... Normal [facility] XR Chest 1 Viewon 06-14-2024 XR Chest [...] Electronically Signed in Other Vendor System) Normal [facility] B hCG Qualon 06-09-2024 Beta HCG ( test) Ql Negative Normal [facility] Comment on above: Performed By: #### 2 [id number] #### [facility] [address] [place] [address] BMPon 06-09-2024 Creatinine [Mass/Vol] 0.7 mg/dL Normal 0.5-1.3 [facility] Comment on above: Performed By: #### 2 [id number] #### [facility] [address] [place] [address] Urea nitrogen/Creatinine [Mass ratio] 13 No Units Normal 10-20 [facility] Comment on above: Performed By: #### 2 [id number] #### [facility] [address] [place] [address] Anion gap [Moles/Vol] 10 mmol/L Normal 6-16 [facility] Comment on above: Performed By: #### 2 [id number] #### [facility] [address] [place] [address] Calcium [Mass/Vol] 8.8 mg/dL Low 8.9-11.1 [facility] Comment on above: Performed By: #### 2 [id number] #### [facility] [address] [place] [address] Chloride [Moles/Vol] 108 mmol/L Normal 101-111 [facility] Comment on above: Performed By: #### 2 [id number] #### [facility] [address] [place] [address] CO2 [Moles/Vol] 25 mmol/L Normal 21-31 [facility] Comment on above: Performed By: #### 2 [id number] #### [facility] [address] [place] [address] Glucose [Mass/Vol] 171 mg/dL Normal 55-199 [facility] Comment on above: Performed By: #### 2 820471 #### [facility] [address] [place] [address] Potassium [Moles/Vol] 3.8 mmol/L Normal 3.5-5.3 [facility] Comment on above: Performed By: #### 2 [id number] #### [facility] [address] [place] [address] Sodium [Moles/Vol] 139 mmol/L Normal 135-145 [facility] Comment on above: Performed By: #### 2 [id number] #### [facility] [address] [place] [address] Urea nitrogen [Mass/Vol] 9 mg/dL Normal 5-21 [facility] Comment on above: Performed By: #### 2 [id number] #### [facility] [address] [place] [address] CBC w/ Auto Diffon 4 Basophils/100 WBC (Bld) 0.5 % Normal 0.0-2.0 [facility] Comment on above: Performed By: #### 2 [id number] #### [facility] [address] [place] [address] Basophils/Leukocytes Auto (Bld) [Pure # fraction] 0.0 E9/L Normal 0.0-0.2 [facility] Comment on above: Performed By: #### 2 [id number] #### [facility] [address] [place] [address] Eosinophils (Bld) [#/Vol] 0.3 E9/L Normal 0.0-0.5 [facility] Comment on above: Performed By: #### 2 [id number] #### [facility] [address] [place] [address] Eosinophils/100 WBC (Bld) 3.4 % Normal 0.0-8.0 [facility] Comment on above: Performed By: #### 2 [id number] #### [facility] [address] [place] [address] Erythrocyte distribution width (RBC) [Ratio] 13.5 % Normal 10.9-14.2 [facility] Comment on above: Performed By: #### 2 [id number] #### [facility] [address] [place] [address] Hematocrit (Bld) [Volume fraction] 38.2 % Normal 34.0-46.0 [facility] Comment on above: Performed By: #### 2 [id number] #### [facility] [address] [place] [address] Hemoglobin (Bld) [Mass/Vol] 13.0 g/dL Normal 12.0-16.0 [facility] Comment on above: Performed By: #### 2 [id number] #### [facility] [address] [place] [address] Lymphocytes (Bld) [#/Vol] 3.0 E9/L Normal 1.0-4.0 [facility] Comment on above: Performed By: #### 2 436116 #### [facility] [address] [place] [address] Lymphocytes/100 WBC (Bld) 41.1 % Normal 14.0-50.0 [facility] Comment on above: Performed By: #### 2 [id number] #### [facility] [address] [place] [address] MCH (RBC) [Entitic mass] 30.5 pg Normal 27.0-34.0 [facility] Comment on above: Performed By: #### 2 [id number] #### [facility] [address] [place] [address] MCHC (RBC) [Mass/Vol] 34.1 g/dL Normal 31.4-36.0 [facility] Comment on above: Performed By: #### 2 [id number] #### [facility] [address] [place] [address] MCV (RBC) [Entitic vol] 89.4 fL Normal 80.0-100.0 [facility] Comment on above: Performed By: #### 2 500153 #### [facility] [address] [place] [address] Monocytes (Bld) [#/Vol] 0.5 E9/L Normal 0.2-1.0 [facility] Comment on above: Performed By: #### 2 [id number] #### [facility] [address] [place] [address] Neutrophils (Bld) [#/Vol] 3.6 E9/L Normal 2.0-7.5 [facility] Comment on above: Performed By: #### 2 977159 #### [facility] [address] [place] [address] Neutrophils/100 WBC (Bld) 48.5 % Normal 36.0-75.0 [facility] Comment on above: Performed By: #### 2 068571 #### [facility] [address] [place] [address] Platelet mean volume (Bld) [Entitic vol] 8.5 fL Normal 6.4-10.8 [facility] Comment on above: Performed By: #### 2 [id number] #### [facility] [address] [place] [address] Platelets (Bld) [#/Vol] 267.0 E9/L Normal 150.0-500.0 [facility] Comment on above: Performed By: #### 2 347481 #### [facility] [address] [place] [address] RBC (Bld) [#/Vol] 4.3 E12/L Normal 4.3-5.9 [facility] Comment on above: Performed By: #### 2 937021 #### [facility] [address] [place] [address] WBC corrected for nucl RBC Auto (Bld) [#/Vol] 7.4 E9/L Normal 4.0-11.0 [facility] Comment on above: Performed By: #### 2 [id number] #### [facility] [address] [place] [address] CHEMISTRYOrdered By: SYSTEM SYSTEM on 06-09-2024 Albumin [...] 2023 ED Clinical Summary ED Clinical Summary [place] [id number] ED Clinical Summary Person Information [facility]: [facility] Age[facility] 28 Years : 1995 Sex: Female Language: [place] Korean PCP: YOSSI GOLDEN MD Marital Status: MRN: [id number] Visit Id: Visit Reason: Constipation; Nausea; Abdominal [...] 06/09/2024 05:22:37 06/09/2024 05:22:37 06/09/2024 05:22:37 ADDRESS: [address] [place] [id number] PHYS DOC NOTES: MEDICAL INFORMATION: Prescriptions Given: New Medications [facility] [id number], [address] [place] [phone], [phone] metoclopramide (Reglan 10 mg Tab) 1 Tablets By Mouth every 6 hours. Refills: 0. sucralfate (Carafate 1 gram Tab) 1 Tablets By Mouth 4 times a day for 7 Days. Refills: 0. Medications to Continue Taking That Have Changed [facility] [id number], [address] [place], [place] [id number], [phone] START: promethazine (Phenergan 25 mg Supp) 1 [...] EDUCATION INFORMATION: Instructions: Gastroparesis; Abdominal Pain, Adult, Etho-qj-Tekv Follow up: With: Address: When: YOSSI GOLDEN [address] [place], [place] [phone] [facility] (1) In 3 days 06/12/2024 Comments: You can use the nausea medication as prescribed as needed for nausea and vomiting. Please follow-up with your primary care doctor in the next 2 to 3 days for further evaluation and management. DIAGNOSIS: Chronic abdominal pain; Gastroparesis; Other chronic pain Normal [facility] ED Note-Physicianon 06-09-20 ED Note-Physician ED Note-Physician Basic Information Time Seen: Chavo Squires DO 06/09/2024 02:40 Chief Complaint Pt arrives to ED for c/o abdominal pain, constipation, and nausea. Pt was seen yesterday at [facility] where she passed out, CT of head was negative per spouse. PCP prescribed Barnstead for pain with no relief. H/O DM, [...] doctor after the ER visit was given Barnstead which she has been taking for the [...] and Complexity of Problems Differential Diagnosis: [] [facility] Data External documents reviewed: [] My EKG [...] q6hr, # 12 tab(s), Refills(s) 0, Pharmacy: [facility] [id number], 173, cm, 06/09/24 2:42:00 EDT, Height/Length Dosing, [...] Nausea/Vomiting, # 6 EA, Refills(s) 0, Pharmacy: [facility] [id number], 173, cm, 06/09/24 2:42:00 EDT, Height/Length Dosing, 115.4, kg, 06/09/24 2:42:00 EDT, Weight Dosing Sodium Chloride 0.9% intravenous solution, 1,000 mL, Soln-IV, IV, Once, Stop date 06/09/24 3:02:00 EDT, STAT, Start date 06/09/24 3:02:00 EDT, Infuse over 61, minute(s) sucralfate, 1 gm = 1 tab(s), Oral, QID, X 7 day(s), # 28 tab(s), Refills(s) 0, Pharmacy: [facility] [id number], 173, cm, (more content not included)... Normal [facility] Comment on above: Result Comment: Elec tronically Signed By: Dokken DO, Kaylinn A\.br\Date and Time Signed: 06/09/24 05:27 EDT ED Patient Summaryon 024 ED Patient Summary ED Patient Summary [place] [id number] Patient Discharge Instructions Person Information Name: GAEL RUBY Age: 28 Years Arrival Date: 06/09/2024 02:27:27 Discharge Diagnosis: Chronic abdominal pain; Gastroparesis; Other chronic pain Primary Care Physician: YOSSI GOLDEN MD Provider Information Primary Provider: Chavo Squires DO Advanced Hydrostatic Tubing Tester:None The exam and treatment you received in the Emergency Department were for an urgent problem and are not intended as complete care. It is important that you follow up with a doctor, nurse practitioner, or physician?s occupational therapist's assistant for ongoing care. If your symptoms [...] With: Address: When: YOSSI GOLDEN [address], [place] [phone] Business (1) In 3 days 06/12/2024 Comments: [...] Patient Education Materials: Gastroparesis; Abdominal Pain, Adult, Cemj-fz-Fwee A MESSAGE TO ALL PATIENTS REGARDING OPIOIDS PRESCRIPTION OPIOIDS: WHAT YOU NEED TO KNOW Prescription opioids can be used to help relieve kwglbjdy-yr-iiahfw pain and are often prescribed following a [...] (www.fda.gov/Drugs/Res ourcesForYou). (more content not included)... Normal [facility] HEMATOLOGYOrdered By: SYSTEM SYSTEM on 06-09-2024 Basophils/100 [...] 06-09-2024 Albumin [Mass/Vol] 3.8 g/dL Normal 3.3-5.0 [facility] Comment on above: Performed By: #### 2 [id number] #### [facility] [address] [place] [address] Albumin/Globulin (S) [Mass conc ratio] 1.4 Normal 1.1-2.2 [facility] Comment on above: Performed By: #### 2 [id number] #### [facility] [address] [place] [address] ALP [Catalytic activity/Vol] 87 Int._Unit/L Normal 21-98 [facility] Comment on above: Performed By: #### 2 [id number] #### [facility] [address] [place] [address] ALT No additional P-5'-P [Catalytic activity/Vol] 40 Int._Unit/L Normal 6-46 [facility] Comment on above: Performed By: #### 2 [id number] #### [facility] [address] [place] [address] AST [Catalytic activity/Vol] 31 Int._Unit/L Normal 5-43 [facility] Comment on above: Performed By: #### 2 [id number] #### [facility] [address] [place] [address] Bilirubin [Mass/Vol] 0.3 mg/dL Normal 0.0-1.1 [facility] Comment on above: Performed By: #### 2 878012 #### [facility] [address] [place] [address] Bilirubin.direct [Mass/Vol] 0.0 mg/dL Normal 0.0-0.4 [facility] Comment on above: Performed By: #### 2 806917 #### [facility] [address] [place] [address] Bilirubin.indirect [Mass or moles/Vol] 0.3 mg/dL Normal 0.1-0.9 [facility] Comment on above: Performed By: #### 2 [id number] #### [facility] [address] [place] [address] Globulin (S) [Mass/Vol] 2.7 g/dL Normal 1.4-4.0 [facility] Comment on above: Performed By: #### 2 [id number] #### [facility] [address] [place] [address] Protein [Mass/Vol] 6.5 g/dL Normal 6.0-7.8 [facility] Comment on above: Performed By: #### 2 [id number] #### [facility] [address] [place] [address] Lipase Levelon 06-09-2024 Lipase [Catalytic activity/Vol] 89 U/L High 13-58 [facility] Comment on above: Performed By: #### 2 [id number] #### [facility] [address] [place] [address] SEROLOGYOrdered By: Segundo benito on 06-09-2024 Beta HCG ( test) Ql Negative (06/09/24 3:09 AM) Normal [facility] Man Sero UA with Cult Rflxon 06-09-20 Bilirubin Ql (U) Negative Normal Negative [facility] Comment on above: Performed By: #### 4 [id number] #### [facility] [address] [place] [address] Clarity (U) Clear Normal Clear [facility] Comment on above: Performed By: #### 4 [id number] #### [facility] [address] [place] [address] Color (U) Yellow Normal Yellow [facility] Comment on above: Result Comment: Micr oscopic readings are only performed on those samples that meet specific criteria set forth by [facility]. Performed By: #### 4 [id number] #### [facility] [address] [place] [address] Glucose Ql (U) Negative Normal Negative [facility] Comment on above: Performed By: #### 4 [id number] #### [facility] [address] [place] [address] Hemoglobin Auto test strip (U) [Mass/Vol] Negative Normal Negative [facility] Comment on above: Performed By: #### 4 [id number] #### [facility] [address] [place] [address] Ketones Auto test strip Ql (U) Negative Normal Negative [facility] Comment on above: Performed By: #### 4 [id number] #### [facility] [address] [place] [address] Leukocyte esterase Auto test strip Ql (U) Negative Normal Negative [facility] Comment on above: Performed By: #### 4 [id number] #### [facility] [address] [place] [address] Nitrite Auto test strip Ql (U) Negative Normal Negative [facility] Comment on above: Performed By: #### 4 [id number] #### [facility] [address] [place] [address] pH (U) 5.5 [pH] Invalid Interpretation Code 5.0-9.0 [facility] Comment on above: Performed By: #### 4 [id number] #### [facility] [address] [place] [address] Protein Ql (U) Trace Abnormal Negative [facility] Comment on above: Performed By: #### 4 [id number] #### [facility] [address] [place] [address] Specific gravity (U) [Rel density] 1.031 Invalid Interpretation Code 1.005-1.030 [facility] Comment on above: Performed By: #### 4 [id number] #### [facility] [address] [place] [address] Urobilinogen (U) [Mass/Vol] 2 mg/dL Abnormal Negative [facility] Comment on above: Performed By: #### 4 [id number] #### [facility] [address] [place] [address] Type of Urine collection method Clean Catch Normal [facility] Comment on above: Performed By: #### 4 [id number] #### [facility] [address] [place] [address] URINALYSISOrdered By: SYSTEM SYSTEM on 06-09-2024 Bilirubin Ql (U) Negative Normal Negativemg/ dL [facility] UA Auto SS Clarity (U) Clear (06/09/24 3:34 AM) Normal Clear [facility] UA Auto SS Color (U) Yellow 1 (06/09/24 3:34 AM) Normal Yellow [facility] Auto SS Comment on above: Interpretive Data: M icroscopic readings are only performed on those samples that meet specific criteria set forth by [facility]. Glucose Ql (U) Negative Normal Negativemg/ [...] strip Ql (U) Negative Normal Negativemg/ dL [facility] UA Auto SS pH (U) 5.5 *NA* (06/09/24 3:34 AM) Invalid Interpretation Code 5.0 - 9.0 [facility] UA Auto SS Protein Ql (U) Trace mg/dL Invalid Interpretation Code Negativemg/ dL [facility] UA Auto SS Specific gravity (U) [Rel density] 1.031 *NA* (06/09/24 3:34 AM) Invalid Interpretation Code 1.005 - 1.030 [facility] UA Auto SS Urobilinogen (U) [Mass/Vol] 2 mg/dL Invalid Interpretation Code Negativemg/ dL [facility] UA Auto SS URINALYSISOrdered By: Che Squires on 06-09-2024 UA Spec Desc Clean Catch (06/09/24 3:34 AM) Normal [facility] UA Auto SS eGFRon 06-09-2024 eGFR 119 mL/min/1.73 m2 Normal >=59 [facility] Comment on above: Order Comment: Order added by Discern Expert. Performed By: #### 1 [id number] #### [facility] [address] [place] [address] Ambulatory Visit Summaryon 0 06-01-2024 Ambulatory Visit Summary Ambulatory Visit Summary GAEL RUBY :1995 Visit Date:06/01/2024 Ambulatory Visit Instructions Your [...] (Reglan 10 mg Tab) Procedures Performed section (2018), section [...] needed for Nausea/Vomiting Refills: 6 Pickup at [facility] [id number] New promethazine (Phenergan 25 mg Supp) 1 Suppositories By rectum Every 12 hours as needed for Nausea/Vomiting Refills: 6 Pickup at [facility] [id number] Unchanged albuterol (Albuterol (Eqv-ProAir HFA) 90 mcg/ [...] physician if questions or concerns Pharmacy Information [facility] [id number]: [address] [place], [place] [id number] [phone] What How Much When Why Comments Stop [...] stools GA (more content not included)... Normal [facility] Gastroenterology Office/Clin ic Noteon 06-01-2024 Gastroenterology Office/Clinic [...] EGD and colonoscopy with Dr. Gardner in [place] December 26, 2022: Reported distal esophagitis and [...] abdomen pelvis with contrast -GI will follow [facility] 05/14/24 @ [facility]: IMPRESSION: Severely delayed gastric emptying. FINDINGS: [...] the abdomen/pelvis. EGD/Colon 12/26/22 w/Dr. Gardner @ [facility]: POSTOPERATIVE DIAGNOSIS: Small sliding type hiatal [...] 88.6 fL (05/22/24) Chloride: 108 mmol/L (05/24/24) Webster Absolute: 0.6 E9/L (05/22/24) CO2: 26 mmol/L (05/24/24) Webster Auto: 5.3 % (05/22/24) Creatinine: 0.7 mg/dL [...] we can refer to Dr. Gastelum at [facility] for evaluation of Kunal PIEDRA She is [...] Procedure) 2. (more content not included)... Normal [facility] Comment on above: Result Comment: Elec tronically Signed By: Beto GREWAL, Aly Whitten\.br\Date and Time Signed: 06/01/24 10:17 EDT CBC with Auto Differentialon 05-26-2024 Basophils (Bld) [#/Vol] 0.06 10*3/uL [facility] Basophils/100 WBC (Bld) 1 % 0 - 2 % [facility] Eosinophils (Bld) [#/Vol] 0.24 10*3/uL [facility] Eosinophils/100 WBC (Bld) 3 % 1 - 4 % [facility] Erythrocyte distribution width (RBC) [Ratio] 12.8 % 11.8 - 14.4 % [facility] Hematocrit (Bld) [Volume fraction] 44.9 % 36.3 - 47.1 % [facility] Hemoglobin (Bld) [Mass/Vol] 14.8 g/dL 11.9 - 15.1 g/dL [facility] Immature granulocytes (Bld) [#/Vol] 0.03 10*3/uL [facility] Immature granulocytes/100 WBC (Bld) 0 % 0 [facility] Lymphocytes/100 WBC (Bld) 37 % 24 - 43 % [facility] Lymphocytes/100 WBC (Bld) 3.59 % [facility] MCH (RBC) [Entitic mass] 29.7 pg 25.2 - 33.5 pg [facility] MCHC (RBC) [Mass/Vol] 33.0 g/dL 28.4 - 34.8 g/dL [facility] MCV (RBC) [Entitic vol] 90.2 fL 82.6 - 102.9 fL [facility] Monocytes/100 WBC (Bld) 5 % 3 - 12 % [facility] Monocytes/100 WBC (Bld) 0.47 % [facility] Neutrophils/100 WBC (Bld) 54 % 36 - 65 % [facility] Nucleated RBC/100 WBC (Bld) [Ratio] 0.0 % 0.0 per 100 WBC [facility] Platelet mean volume (Bld) [Entitic vol] 11.1 fL 8.1 - 13.5 fL [facility] Platelets (Bld) [#/Vol] 313 10*3/uL [facility] RBC (Bld) [#/Vol] 4.98 10*6/uL 3.95 - 5.1 1 m/uL [facility] Segmented neutrophils/100 WBC (Bld) 5.34 % [facility] WBC other (Bld) [#/Vol] 9.7 [facility] CBC with Diffon 05-26-2024 Abs. Basophil 0.06 k/uL Normal 0.00-0.20 [facility] Comment on above: Performed By: #### C ANA ROBLEDO, LIP #### [employer] [address] [place], [place] [id number] Product Strategy Director: Rishabh Mendieta MD Abs.Imm.Granulocyte 0.03 k/uL Normal 0.00-0.30 [facility] Comment on above: Performed By: #### C ANA ROBLEDO, LIP #### [employer] [address] [place], [place] [id number] Product Strategy Director: Rishabh Mendieta MD Abs.Neutrophil (Seg) 5.34 k/uL Normal 1.50-8.10 [facility] Comment on above: Performed By: #### C ANA ROBLEDO, LIP #### [address] [address] Product Strategy Director: Rishabh Mendieta MD Basophils/100 WBC (Bld) 1 % Normal 0-2 [facility] Comment on above: Performed By: #### C DP, CP, LIP #### [address] [address] Product Strategy Director: Rishabh Mendieta MD Eosinophils (Bld) [#/Vol] 0.24 10*3/uL Normal 0.00-0.44 [facility] Comment on above: Performed By: #### C DP, CP, LIP #### [address] [address] Product Strategy Director: Rishabh Mendieta MD Eosinophils/100 WBC (Bld) 3 % Normal 1-4 [facility] Comment on above: Performed By: #### C DP, CP, LIP #### [address] [address] Product Strategy Director: Rishabh Mendieta MD Erythrocyte distribution width (RBC) [Ratio] 12.8 % Normal 11.8-14.4 [facility] Comment on above: Performed By: #### C DP, CP, LIP #### [address] [address] Product Strategy Director: Rishabh Mendieta MD Hematocrit (Bld) [Volume fraction] 44.9 % Normal 36.3-47.1 [facility] Comment on above: Performed By: #### C DP, CP, LIP #### [address] [address] Product Strategy Director: Rishabh Mendieta MD Hemoglobin (Bld) [Mass/Vol] 14.8 g/dL Normal 11.9-15.1 [facility] Comment on above: Performed By: #### C DP, CP, LIP #### [address] [address] Product Strategy Director: Rishabh Mendieta MD Immature granulocytes/100 WBC (Bld) 0 % Normal 0 [facility] Comment on above: Performed By: #### C DP, CP, LIP #### [address] [address] Product Strategy Director: Rishabh Mendieta MD Lymphocytes (Bld) [#/Vol] 3.59 10*3/uL Normal 1.10-3.70 [facility] Comment on above: Performed By: #### C DP, CP, LIP #### [place] [address] Product Strategy Director: Rishabh Mendieta MD Lymphocytes/100 WBC (Bld) 37 % Normal 24-43 [facility] Comment on above: Performed By: #### C DP, CP, LIP #### [address] [address] Product Strategy Director: Rishabh Mendieta MD MCH (RBC) [Entitic mass] 29.7 pg Normal 25.2-33.5 [facility] Comment on above: Performed By: #### C DP, CP, LIP #### [address] [address] Product Strategy Director: Rishabh Mendieta MD MCHC (RBC) [Mass/Vol] 33.0 g/dL Normal 28.4-34.8 [facility] Comment on above: Performed By: #### C DP, CP, LIP #### [address] [address] Product Strategy Director: Rishabh Mendieta MD MCV (RBC) [Entitic vol] 90.2 fL Normal 82.6-102.9 [facility] Comment on above: Performed By: #### C DP, CP, LIP #### [address] [address] Product Strategy Director: Rishabh Mendieta MD Monocytes (Bld) [#/Vol] 0.47 10*3/uL Normal 0.10-1.20 [facility] Comment on above: Performed By: #### C DP, CP, LIP #### [address] [address] Product Strategy Director: Rishabh Mendieta MD Monocytes/100 WBC (Bld) 5 % Normal 3-12 [facility] Comment on above: Performed By: #### C DP, CP, LIP #### [address] [address] Product Strategy Director: Rishabh Mendieta MD Neutrophil (Seg) 54 % Normal 36-65 [facility] Comment on above: Performed By: #### C DP, CP, LIP #### [address] [address] Product Strategy Director: Rishabh Mendieta MD NRBC Automated 0.0 per 100 WBC Normal 0.0 [facility] Comment on above: Performed By: #### C DP, CP, LIP #### [address] [address] Product Strategy Director: Rishabh Mendieta MD Platelet mean volume (Bld) [Entitic vol] 11.1 fL Normal 8.1-13.5 [facility] Comment on above: Performed By: #### C DP, CP, LIP #### [address] [address] Product Strategy Director: Rishabh Mendieta MD Platelets (Bld) [#/Vol] 313 10*3/uL Normal 138-453 [facility] Comment on above: Performed By: #### C DP, CP, LIP #### [address] [address] Product Strategy Director: Rishabh Mendieta MD RBC (Bld) [#/Vol] 4.98 10*6/uL Normal 3.95-5.11 [facility] Comment on above: Performed By: #### C ANA ROBLEDO, LIP #### [facility] [address] [place], [place] [address] Product Strategy Director: Rishabh Mendieta MD WBC (Bld) [#/Vol] 9.7 10*3/uL Normal 3.5-11.3 [facility] Comment on above: Performed By: #### C ANA ROBLEDO, LIP #### [facility] [address] [place], [place] [id number] Product Strategy Director: Rishabh Mendieta MD [facility] Albumin [Mass/Vol] 4.8 g/dL 3.5 - 5.2 g/dL [facility] Albumin/Globulin [Mass ratio] 1.0 {ratio} 1.0 - 2.5 [facility] ALP [Catalytic activity/Vol] 112 U/L High 35 - 104 U/L [facility] ALT [Catalytic activity/Vol] 52 U/L High 10 - 35 U/L [facility] Anion gap [Moles/Vol] 13 mmol/L 9 - 16 mmol/L [facility] AST [Catalytic activity/Vol] 52 U/L High 10 - 35 U/L [facility] Bilirubin [Mass/Vol] 0.4 mg/dL 0.00 - 1.20 mg/dL [facility] Calcium [Mass/Vol] 10.5 mg/dL High 8.6 - 10. 4 mg/dL [facility] Chloride [Moles/Vol] 105 mmol/L 98 - 10 7 mmol/L [facility] CO2 [Moles/Vol] 23 mmol/L 20 - 31 mmol/L [facility] Creatinine [Mass/Vol] 0.8 mg/dL 0.50 - 0.90 mg/dL [facility] Est, Glom Filt Rate - PINF [facility] Comment on above: These results are [...] 118 mg/dL High 74 - 99 mg/dL [facility] Interpretation and review of laboratory results Abnormal [facility] Potassium [Moles/Vol] 4.3 mmol/L 3.7 - 5.3 mmol/L [facility] Comment on above: SPECIMEN SLIGHTLY HE MOLYZED, RESULTS MAY BE ADVERSELY AFFECTED. Protein [Mass/Vol] 8.1 g/dL 6.6 - 8.7 g/dL [facility] Sodium [Moles/Vol] 141 mmol/L 136 - 145 mmol/L [facility] Urea nitrogen [Mass/Vol] 7 mg/dL 6 - 20 mg/dL [facility] Comp Metabolic Profon 2023 Albumin [Mass/Vol] 4.8 g/dL Normal 3.5-5.2 [facility] Comment on above: Performed By: #### C DP CP, LIP #### [facility] [employer] [address] [place] [address] Product Strategy Director: Rishabh Mendieta MD Albumin/Glob Ratio 1.0 Normal 1.0-2.5 [facility] Comment on above: Performed By: #### C DP CP, LIP #### [facility] [address] [place] [address] Product Strategy Director: Rishabh Mendieta MD Alkaline Phos 112 U/L High 35-104 [facility] Comment on above: Performed By: #### C DP, CP, LIP #### [facility] [employer] [address] [place] [address] Product Strategy Director: Rishabh Mendieta MD ALT [Catalytic activity/Vol] 52 U/L High 10-35 [facility] Comment on above: Performed By: #### C DP, CP, LIP #### [facility] [employer] [address] [place] [address] [place] [address] Product Strategy Director: Rishabh Mendieta MD Anion gap [Moles/Vol] 13 mmol/L Normal 9-16 [facility] Comment on above: Performed By: #### C DP, CP, LIP #### [facility] [address] [place] [address] Product Strategy Director: Rishabh Mendieta MD AST [Catalytic activity/Vol] 52 U/L High 10-35 [facility] Comment on above: Performed By: #### C DP, CP, LIP #### [facility] [address] [place] [address] Product Strategy Director: Rishabh Mendieta MD Bilirubin [Mass/Vol] 0.4 mg/dL Normal 0.00-1.20 [facility] Comment on above: Performed By: #### C DP, CP, LIP #### [facility] [employer] [address] [place] [address] Product Strategy Director: Rishabh Mendieta MD Calcium [Mass/Vol] 10.5 mg/dL High 8.6-10.4 [facility] Comment on above: Performed By: #### C DP, CP, LIP #### [facility] [employer] [address] [place] [address] Product Strategy Director: Rishabh Mendieta MD Chloride [Moles/Vol] 105 mmol/L Normal 98-107 [facility] Comment on above: Performed By: #### C DP, CP, LIP #### [facility] [address] [place] [address] Product Strategy Director: Rishabh Mendieta MD CO2 [Moles/Vol] 23 mmol/L Normal 20-31 [facility] Comment on above: Performed By: #### C DP, CP, LIP #### [facility] [address] [place] [address] Product Strategy Director: Rishabh Mendieta MD Creatinine [Mass/Vol] 0.8 mg/dL Normal 0.50-0.90 [facility] Comment on above: Performed By: #### C ANA ROBLEDO, LIP #### [facility] [employer] [address] [place] [address] Product Strategy Director: Rishabh Mendieta MD GFR/1.73 sq M.predicted among non-blacks MDRD (S/P/Bld) [Vol rate/Area] mL/min/{1.73_m2} Normal >60 [facility] Comment on above: Result Comment: These [...] By: #### C ANA ROBLEDO, LIP #### [facility] [employer] [address] [place] [address] Product Strategy Director: Rishabh Mendieta MD Glucose [Mass/Vol] 118 mg/dL High 74-99 [facility] Comment on above: Performed By: #### C ANA ROBLEDO, LIP #### [facility] [address] [place] [address] Product Strategy Director: Rishabh Mendieta MD Potassium [Moles/Vol] 4.3 mmol/L Normal 3.7-5.3 [facility] Comment on above: Result Comment: SPEC IMEN SLIGHTLY HEMOLYZED, RESULTS MAY BE ADVERSELY AFFECTED. Performed By: #### C ANA ROBLEDO, LIP #### [facility] [employer] [address] [place] [address] Product Strategy Director: Rishabh Mendieta MD Protein [Mass/Vol] 8.1 g/dL Normal 6.6-8.7 [facility] Comment on above: Performed By: #### C ANA ROBLEDO, LIP #### [facility] [address] [place] [address] Product Strategy Director: Rishabh Mendieta MD Sodium [Moles/Vol] 141 mmol/L Normal 136-145 [facility] Comment on above: Performed By: #### C ANA ROBLEDO, LIP #### [address] [address] Product Strategy Director: Rishabh Mendieta MD Urea nitrogen [Mass/Vol] 7 mg/dL Normal 6-20 [facility] Comment on above: Performed By: #### C ANA ROBLEDO, LIP #### [address] [address] Product Strategy Director: Rishabh Mendieta MD Lipaseon 05-26-2024 Lipase [Catalytic activity/Vol] 54 U/L 13 - 60 U/L [facility] Lipase [Catalytic activity/Vol] 54 U/L Normal 13-60 [facility] Comment on above: Performed By: #### C ANA ROBLEDO, LIP #### [address] [address] Product Strategy Director: Rishabh Mendieta MD No Panel Informationon 05-26 [facility] UA w/Reflex Cultureon 2023 Bilirubin, SemiQt,Ur Negative Normal NEG [facility] Comment on above: Performed By: #### U AX #### [address] [address] Product Strategy Director: Rishabh Mendieta MD Blood, Urine Negative Normal NEG [facility] Comment on above: Performed By: #### U AX #### [address] [address] Product Strategy Director: Rishabh Mendieta MD Clarity (U) Clear Normal CLEAR [facility] Comment on above: Performed By: #### U AX #### [address] [address] Product Strategy Director: Rishabh Mendieta MD Color (U) Yellow Normal YEL [facility] Comment on above: Performed By: #### U AX #### [address] [address] Product Strategy Director: Rishabh Mendieta MD Comment Microscopic exam not performed based on chemical results unless requested in Normal [facility] Comment on above: Result Comment: orig inal order. Performed By: #### U AX #### [address] [address] Product Strategy Director: Rishabh Mendieta MD Glucose Ql (U) Negative Normal NEG [facility] Comment on above: Performed By: #### U AX #### [address] [address] Product Strategy Director: Rishabh Mendieta MD Ketones Ql (U) Negative Normal NEG [facility] Comment on above: Performed By: #### U AX #### [address] [address] Product Strategy Director: Rishabh Mendieta MD Leukocyte esterase Test strip Ql (U) Negative Normal NEG [facility] Comment on above: Performed By: #### U AX #### [address] [address] Product Strategy Director: Rishabh Mendieta MD Nitrite,Ur Negative Normal NEG [facility] Comment on above: Performed By: #### U AX #### [address] [address] Product Strategy Director: Rishabh Mendieta MD PH,Ur 6.5 Normal 5.0-8.0 [facility] Comment on above: Performed By: #### U AX #### [address] [address] Product Strategy Director: Rishabh Mendieta MD Protein Ql (U) Negative Normal NEG [facility] Comment on above: Performed By: #### U AX #### [facility] [address] [place] [address] Product Strategy Director: Rishabh Mendieta MD Spec. Onyx,Ur 1.013 Normal 1.005-1.030 [facility] Comment on above: Performed By: #### U AX #### [facility] [address] [place], [place] [phone] Product Strategy Director: Rishabh Mendieta MD Urobilinogen,Ur Normal Normal 0.0-1.0 [facility] Comment on above: Performed By: #### U AX #### [employer] [address] [place], [place] [id number] Product Strategy Director: Rishabh Mendieta MD Urinalysis with Reflex to Cu ltureon 05-26-2024 Bilirubin Ql (U) Negative NEGATIVE [facility] Clarity (U) Clear Clear [facility] Color (U) Yellow Yellow [facility] Comment Microscopic exam not performed based on chemical results unless requested in original order. [facility] Glucose Test strip (U) [Mass/Vol] Negative NEGATIVE mg/dL [facility] Hemoglobin Auto test strip Ql (U) Negative NEGATIVE [facility] Ketones (U) [Mass/Vol] Negative NEGAT SIMA mg/dL [facility] Leukocyte esterase Test strip Ql (U) Negative NEGATIVE [facility] Nitrite Ql (U) Negative NEGATIVE [facility] pH (U) 6.5 [pH] 5.0 - 8.0 [facility] Protein (U) [Mass/Vol] Negative NEGAT SIMA mg/dL [facility] Specific gravity (U) [Rel density] 1.013 1.005 - 1.030 [facility] Urobilinogen Qn (U) Normal 0.0 - 1. 0 EU/dL [facility] CHEMISTRYOrdered By: SYSTEM SYSTEM on 05-24-2024 [...] 05-24-2024 Inpatient Clinical Summary Inpatient Clinical Summary [address] [address] Clinical Summary Person Information: Name: GAEL RUBY Age: 28 Years : 1995 Sex: Female PCP: YOSSI GOLDEN MD Marital Status: Race: White Ethnicity: Non- or Language: [place] Visit Id: Visit Reason: Vomiting; Abdominal pain; GASTRO, N/V/ Speciality: Acuity: Enc Type: Inpatient Med Service: Medical Arrival: 05/22/2024 21:21:53 Discharge: Dispo Type: Admitted as IP to this Hosp Address: [address] [place] [phone] Provider Notes: Diagnosis: 1:Gastroparesis; 2:Type 2 diabetes [...] 6 hours as needed Pain. acetaminophen-hydrocod one (Barnstead 325 mg-5 mg oral tablet) 1 Tablets [...] up: With: Address: When: Aly Beverly [address], [address], [place] [address] [place] [phone] Business (1) Within 7 to 10 days Comments: Call for followup appointment With: Address: When: YOSSI GOLDEN [address] [place], [place] [phone] Business (1) Within 3 to 5 days Comments: Call for followup appointment Patient Education Information: Obesity, Adult, Owjy-in-Iula; Gastroparesis; DASH Eating Plan; Abdominal Bloating; Acute Pain, Adult metoclopramide, nicotine, Barnstead 5/325 Tab, ondansetron, pantoprazole Normal [facility] Inpatient Patient Summaryon 05-24-2024 Inpatient Patient Summary [...] acetaminophen (acetaminophen 325 mg Tab) acetaminophen-hydrocod one (Barnstead 325 mg-5 mg oral tablet) albuterol (Albuterol [...] Diagnostic Test Results None Discharge Instructions Call [phone] in a.m. to schedule your outpatient gastric emptying study, let them know you need it maico so it can be reviewed prior to your Dr. Beverly appointmentFollow up appts as writtenSm. frequent meals, take your time eating New Follow Up Appointments after Discharge Follow Up with Aly Beverly When: Within 7 to 10 days Comments: Call for followup appointment Where: Matthias Guardado, [facility] [address] [phone] Business (1) Follow Up with YOSSI GOLDEN When: Within 3 to 5 days Comments: Call for followup appointment Where: [address] [place] [address] Business (1) Medications What How Much When Why Instructions Next Dose New acetaminophen (acetaminophen 325 mg Tab) 2 Tablets By Mouth Every 6 hours as needed for Pain as needed New acetaminophen-hydrocod one (Barnstead 325 mg-5 mg oral tablet) 1 Tablets By Mouth 2 times a day as needed for Pain Gastroparesis Duration: 3 Days Pickup at [place] [id number] as needed New nicotine (nicotine 21 mg-14 mg-7 mg transdermal film, extended release) 1 Patches Transdermal At noon Duration: 28 Days Pickup at [place] [id number] 9 @ 1200 New pantoprazole (Pantoprazole [address] Tab) 1 Tablets By Mouth 2 times a day Pickup at [place] [id number] 05/24 @ 9pm Changed albuterol (Albuterol (Eqv-ProAir [...] hand out given to you Pickup at [place] [id number] as needed Changed ondansetron (ondansetron 4 mg Dis Tab) 1 Tablets By Mouth Every 6 hours as needed for Nausea Duration: 3 Days Pickup at [place] [id number] as needed Changed promethazine (Phenergan 12.5 mg [...] tizanidine (t (more content not included)... Normal [facility] Inpatient Patient Summary Inpatient Patient Summary [address] [address] Patient Discharge Instructions PERSON INFORMATION Name: GAEL RUBY Date of : 1995 Current Date: 05/24/2024 13:22:39 PHYSICIANS Admitting Physician: Naima Sewell MD Primary Care Physician: YOSSI GOLDEN MD PCP Comment: Discharge Diagnosis: 1:Gastroparesis; 2:Type 2 diabetes mellitus; 3:Essential hypertension; 4:LINA (generalized anxiety disorder); 5:Morbid obesity Condition at Discharge: Stable FLORI, GAEL Al has been given the following list [...] Nebulizer, Walker Special Services: Additional Instructions: Call [phone] in a.m. to schedule your outpatient gastric emptying study, let them know you need it maico so it can be reviewed prior to your Dr. Beverly appointment Follow up appts as written Sm. frequent meals, take your time eating Primary Care Physician to provide the following pending test results: None Follow up: With: Address: When: Aly Beverly [address] [facility], [address], [address] [phone] Business (1) Within 7 to 10 days Comments: Call for followup appointment With: Address: When: YOSSI GOLDEN [address] [place], [place] [phone] Business (1) Within 3 to 5 days [...] OCCURRED DURING YOUR HOSPITAL STAY New Medications [facility] [id number], [address], [place] [id number], [phone] acetaminophen-hydrocod one (Barnstead 325 mg-5 mg oral tablet) 1 Tablets [...] Medications to Continue Taking That Have Changed [facility] [id number], [address], [place] [id number], [phone] START: metoclopramide (Reglan 10 mg Tab) 1 [...] ___ STOP: (more content not included)... Normal [facility] Lyteson 05-24-2024 Anion gap [Moles/Vol] 10 mmol/L Normal 6-16 [facility] Comment on above: Performed By: #### 2 [id number] #### [facility] [address] [place] [address] Chloride [Moles/Vol] 108 mmol/L Normal 101-111 [facility] Comment on above: Performed By: #### 2 [id number] #### [facility] [address] [place] [address] CO2 [Moles/Vol] 26 mmol/L Normal 21-31 [facility] Comment on above: Performed By: #### 2 [id number] #### [facility] [address] [place] [address] Potassium [Moles/Vol] 4.2 mmol/L Normal 3.5-5.3 [facility] Comment on above: Performed By: #### 2 [id number] #### [facility] [address] [place] [address] Sodium [Moles/Vol] 140 mmol/L Normal 135-145 [facility] Comment on above: Performed By: #### 2 [id number] #### [facility] [address] [place] [address] WBCon 05-24-2024 WBC corrected for nucl RBC Auto (Bld) [#/Vol] 6.3 E9/L Normal 4.0-11.0 [facility] Comment on above: Performed By: #### 2 [id number] #### [facility] [address] [place] [address] CT Abdomen/Pelvis w/ Contras ton 05-23-2024 CT [...] REPORT Dictated: 05/23/2024 12:53 pm Woodrow Bell MD. Signed (Electronic Signature): 05/23/2024 12:53 pm Signed by: Woodrow Bell MD Transcribed by: VENKAT Technologist: RORY Technical Comments GFR (mL/min/1/73m2) >60 Contrast: Isovue 300 Contrast amount in ml's: 100 Normal [facility] ED Clinical Summaryon 2023 ED Clinical Summary ED Clinical Summary [address] [address] ED Clinical Summary Person Information Name: GAEL RUBY/Anisha Age: 28 Years : 1995 Sex: Female Language: [place] Korean PCP: YOSSI GOLDEN MD Marital Status: Visit Id: Visit Reason: Vomiting; Abdominal pain; GASTRO, N/V/ Speciality: Acuity: 3 Enc Type: Inpatient Med Service: Medical Arrival: 05/22/2024 21:21:53 Discharge: LOS: 000 05:17 Checkin: 05/22/2024 21:21:53 Checkout: 05/23/2024 02:38:30 Dispo Type: Admitted as IP to this [facility] EVENTS: Event Name Event Status Request Date/Time [...] 02:12:05 Reg Complete Request 05/23/2024 02:02:52 ADDRESS: [address] [place] [phone] PHYS DOC NOTES: MEDICAL INFORMATION: Prescriptions Given: [...] EDUCATION INFORMATION: Instructions: Follow up: DIAGNOSIS: Normal [facility] ED Note-Physicianon 05-23-20 ED Note-Physician ED Note-Physician [...] 4 mg/mL Inj, 4 mg, IV Push [id number] [F] 12.5 mg + Sodium Chloride 0.9% [...] obesity Postpr (more content not included)... Normal [facility] Comment on above: Result Comment: Elec tronically Signed By: Cameron Conklin DO\.br\Date and Time Signed: 05/23/24 03:43 EDT ED Patient Education Noteon 05-23-2024 ED Patient Education Note ED Patient Education Note Normal [facility] ED Patient Summaryon 024 ED Patient Summary ED Patient Summary [place] [address] Patient Discharge Instructions Person Information Name: GAEL RUBY Age: 28 Years Arrival Date: 05/22/2024 21:21:53 Discharge Diagnosis: Primary Care Physician: YOSSI GOLDEN MD Provider Information Primary Provider: Cameron Conklin DO Advanced Hydrostatic Tubing Tester:None The exam and treatment you received in the Emergency Department were for an urgent problem and are not intended as complete care. It is important that you follow up with a doctor, nurse practitioner, or physician?s occupational therapist's assistant for ongoing care. If your symptoms become worse or you do not improve as expected and you are unable to reach your usual health care provider, you should return to the Emergency Department. We are available 24 hours a day. FLORI GAEL Michelle has been given the following list [...] opioids can be used to help relieve xputtgzs-ks-dorvml pain and are often prescribed following a [...] be struggling with addiction, tell your health care support representative and ask for guidance or call [facility]?S National Helpline at 0-428-557-LBGS. x Source: [place] Department of Health and Human Services/Center for Disease Control & Prevention [facility] Medications Given: Medication Dose Route Sodium Chlor (more content not included)... Normal [facility] UA with Cult Rflxon 05-23-20 24 Bilirubin Ql (U) Negative Normal Negative [facility] Comment on above: Performed By: #### 4 [id number] #### [facility] [address] [place] [address] Clarity (U) Clear Normal Clear [facility] Comment on above: Performed By: #### 4 [id number] #### [facility] [address] [place] [address] Color (U) Yellow Normal Yellow [facility] Comment on above: Result Comment: Micr oscopic readings are only performed on those samples that meet specific criteria set forth by [facility]. Performed By: #### 4 [id number] #### [facility] [address] [place] [address] Glucose Ql (U) Negative Normal Negative [facility] Comment on above: Performed By: #### 4 [id number] #### [facility] [address] [place] [address] Hemoglobin Auto test strip (U) [Mass/Vol] Negative Normal Negative [facility] Comment on above: Performed By: #### 4 [id number] #### [facility] [address] [place] [address] Ketones Auto test strip Ql (U) Negative Normal Negative [facility] Comment on above: Performed By: #### 4 [id number] #### [facility] [address] [place] [address] Leukocyte esterase Auto test strip Ql (U) Negative Normal Negative [facility] Comment on above: Performed By: #### 4 [id number] #### [facility] [address] [place] [address] Nitrite Auto test strip Ql (U) Negative Normal Negative [facility] Comment on above: Performed By: #### 4 [id number] #### [facility] [address] [place] [address] pH (U) 5.5 [pH] Invalid Interpretation Code 5.0-9.0 [facility] Comment on above: Performed By: #### 4 [id number] #### [facility] [address] [place] [address] Protein Ql (U) Trace Abnormal Negative [facility] Comment on above: Performed By: #### 4 [id number] #### [facility] [address] [place] [address] Specific gravity (U) [Rel density] 1.027 Invalid Interpretation Code 1.005-1.030 [facility] Comment on above: Performed By: #### 4 [id number] #### [facility] [address] [place] [address] Urobilinogen (U) [Mass/Vol] 2 mg/dL Abnormal Negative [facility] Comment on above: Performed By: #### 4 [id number] #### [facility] [address] [place] [address] URINALYSISOrdered By: SYSTEM SYSTEM on 05-23-2024 Bilirubin Ql (U) Negative Normal Negativemg/ dL FT UA Auto SS Clarity (U) Clear (05/23/24 3:24 AM) Normal Clear [facility] UA Auto SS Color (U) Yellow 1 (05/23/24 3:24 AM) Normal Yellow [facility] UA Auto SS Comment on above: Interpretive Data: M icroscopic readings are only performed on those samples that meet specific criteria set forth by [facility]. Glucose Ql (U) Negative Normal Negativemg/ [...] Desc Clean Catch (05/23/24 3:24 AM) Normal FT UA Auto SS BMPon 05-22-2024 Anion gap [Moles/Vol] 13 mmol/L Normal 6-16 [facility] Comment on above: Performed By: #### 2 [id number] #### [facility] [address] [place] [address] Calcium [Mass/Vol] 9.7 mg/dL Normal 8.9-11.1 [facility] Comment on above: Performed By: #### 2 [id number] #### [facility] [address] [place] [address] Chloride [Moles/Vol] 108 mmol/L Normal 101-111 [facility] Comment on above: Performed By: #### 2 [id number] #### [facility] [address] [place] [address] CO2 [Moles/Vol] 22 mmol/L Normal 21-31 [facility] Comment on above: Performed By: #### 2 [id number] #### [facility] [address] [place] [address] Creatinine [Mass/Vol] 0.7 mg/dL Normal 0.5-1.3 [facility] Comment on above: Performed By: #### 2 [id number] #### [facility] [address] [place] [address] Glucose [Mass/Vol] 136 mg/dL Normal 55-199 [facility] Comment on above: Performed By: #### 2 [id number] #### [facility] [address] [place] [address] Potassium [Moles/Vol] 4.1 mmol/L Normal 3.5-5.3 [facility] Comment on above: Performed By: #### 2 [id number] #### [facility] [address] [place] [address] Sodium [Moles/Vol] 139 mmol/L Normal 135-145 [facility] Comment on above: Performed By: #### 2 [id number] #### [facility] [address] [place] [address] Urea nitrogen [Mass/Vol] 11 mg/dL Normal 5-21 [facility] Comment on above: Performed By: #### 2 [id number] #### [facility] [address] [place] [address] Urea nitrogen/Creatinine [Mass ratio] 16 No Units Normal 10-20 [facility] Comment on above: Performed By: #### 2 [id number] #### [facility] [address] [place] [address] CBC w/ Auto Diffon 4 Basophils/100 WBC (Bld) 0.8 % Normal 0.0-2.0 [facility] Comment on above: Performed By: #### 2 [id number] #### [facility] [address] [place] [address] Basophils/Leukocytes Auto (Bld) [Pure # fraction] 0.1 E9/L Normal 0.0-0.2 [facility] Comment on above: Performed By: #### 2 [id number] #### [facility] [address] [place] [address] Eosinophils (Bld) [#/Vol] 0.3 E9/L Normal 0.0-0.5 [facility] Comment on above: Performed By: #### 2 745019 #### [facility] [address] [place] [address] Eosinophils/100 WBC (Bld) 2.3 % Normal 0.0-8.0 [facility] Comment on above: Performed By: #### 2 [id number] #### [facility] [address] [place] [address] Erythrocyte distribution width (RBC) [Ratio] 13.7 % Normal 10.9-14.2 [facility] Comment on above: Performed By: #### 2 [id number] #### [facility] [address] [place] [address] Hematocrit (Bld) [Volume fraction] 42.9 % Normal 34.0-46.0 [facility] Comment on above: Performed By: #### 2 507151 #### [facility] [address] [place] [address] Hemoglobin (Bld) [Mass/Vol] 14.7 g/dL Normal 12.0-16.0 [facility] Comment on above: Performed By: #### 2 541946 #### [facility] [address] [place] [address] Lymphocytes (Bld) [#/Vol] 4.6 E9/L High 1.0-4.0 [facility] Comment on above: Performed By: #### 2 [id number] #### [facility] [address] [place] [address] Lymphocytes/100 WBC (Bld) 39.5 % Normal 14.0-50.0 [facility] Comment on above: Performed By: #### 2 [id number] #### [facility] [address] [place] [address] MCH (RBC) [Entitic mass] 30.3 pg Normal 27.0-34.0 [facility] Comment on above: Performed By: #### 2 [id number] #### [facility] [address] [place] [address] MCHC (RBC) [Mass/Vol] 34.2 g/dL Normal 31.4-36.0 [facility] Comment on above: Performed By: #### 2 [id number] #### [facility] [address] [place] [address] MCV (RBC) [Entitic vol] 88.6 fL Normal 80.0-100.0 [facility] Comment on above: Performed By: #### 2 607105 #### [facility] [address] [place] [address] Monocytes (Bld) [#/Vol] 0.6 E9/L Normal 0.2-1.0 [facility] Comment on above: Performed By: #### 2 913122 #### [facility] [address] [place] [address] Neutrophils (Bld) [#/Vol] 6.1 E9/L Normal 2.0-7.5 [facility] Comment on above: Performed By: #### 2 165245 #### [facility] [address] [place] [address] Neutrophils/100 WBC (Bld) 52.1 % Normal 36.0-75.0 [facility] Comment on above: Performed By: #### 2 387857 #### [facility] [address] [place] [address] Platelet mean volume (Bld) [Entitic vol] 8.6 fL Normal 6.4-10.8 [facility] Comment on above: Performed By: #### 2 [id number] #### [facility] [address] [place] [address] Platelets (Bld) [#/Vol] 308.0 E9/L Normal 150.0-500.0 [facility] Comment on above: Performed By: #### 2 [id number] #### [facility] [address] [place] [address] RBC (Bld) [#/Vol] 4.8 E12/L Normal 4.3-5.9 [facility] Comment on above: Performed By: #### 2 886276 #### [facility] [address] [place] [address] WBC corrected for nucl RBC Auto (Bld) [#/Vol] 11.7 E9/L High 4.0-11.0 [facility] Comment on above: Performed By: #### 2 [id number] #### [facility] [address] [place] [address] CHEMISTRYOrdered By: SYSTEM SYSTEM on 05-22-2024 Albumin [...] 05-22-2024 Albumin [Mass/Vol] 4.5 g/dL Normal 3.3-5.0 [facility] Comment on above: Performed By: #### 2 [id number] #### [facility] [address] [place] [address] Albumin/Globulin (S) [Mass conc ratio] 1.3 Normal 1.1-2.2 [facility] Comment on above: Performed By: #### 2 [id number] #### [facility] [address] [place] [address] ALP [Catalytic activity/Vol] 100 Int._Unit/L High 21-98 [facility] Comment on above: Performed By: #### 2 605472 #### [facility] [address] [place] [address] ALT No additional P-5'-P [Catalytic activity/Vol] 46 Int._Unit/L Normal 6-46 [facility] Comment on above: Performed By: #### 2 206371 #### [facility] [address] [place] [address] AST [Catalytic activity/Vol] 34 Int._Unit/L Normal 5-43 [facility] Comment on above: Performed By: #### 2 936084 #### [facility] [address] [place] [address] Bilirubin [Mass/Vol] 0.5 mg/dL Normal 0.0-1.1 [facility] Comment on above: Performed By: #### 2 842793 #### [facility] [address] [place] [address] Bilirubin.direct [Mass/Vol] 0.1 mg/dL Normal 0.0-0.4 [facility] Comment on above: Performed By: #### 2 245283 #### [facility] [address] [place] [address] Bilirubin.indirect [Mass or moles/Vol] 0.4 mg/dL Normal 0.1-0.9 [facility] Comment on above: Performed By: #### 2 396563 #### [facility] [address] [place] [address] Globulin (S) [Mass/Vol] 3.5 g/dL Normal 1.4-4.0 [facility] Comment on above: Performed By: #### 2 896533 #### [facility] [address] [place] [address] Protein [Mass/Vol] 8.0 g/dL High 6.0-7.8 [facility] Comment on above: Performed By: #### 2 133000 #### [facility] [address] [place] [address] Lipase Levelon 05-22-2024 Lipase [Catalytic activity/Vol] 111 U/L High 13-58 [facility] Comment on above: Performed By: #### 2 [id number] #### [facility] [address] [place] [address] UA with Cult Rflxon 05-22-20 24 Type of Urine collection method Clean Catch Normal [facility] Comment on above: Performed By: #### 4 [id number] #### [facility] [address] [place] [address] eGFRon 05-22-2024 eGFR 119 mL/min/1.73 m2 Normal >=59 [facility] Comment on above: Order Comment: Order added by Discern Expert. Performed By: #### 1 [id number] #### [facility] [address] [place] [address] .UA Microscp Aon 05-15-2024 UA Mucus Present Normal Absent [facility] Comment on above: Performed By: #### . Automated Diff #### [address] [address] UA RBC Quant 2 /HPF Normal 0-5 [facility] Comment on above: Performed By: #### . Automated Diff #### [address] [address] UA Squepi Cells Quant 1 /HPF Normal 0-29 [facility] Comment on above: Performed By: #### . Automated Diff #### [address] [address] UA WBC Quant 4 /HPF Normal 0-5 [facility] Comment on above: Performed By: #### . Automated Diff #### [place] [address] .eGFRon 05-15-2024 GFR/1.73 sq M.predicted MDRD (S/P/Bld) [Vol rate/Area] mL/min/{1.73_m2} Normal >=60 [facility] Comment on above: Result Comment: [facility] have implemented the eGFR calculation [...] years Performed By: #### C BC #### [place] [address] CBC w/ Diffon 05-15-2024 Erythrocyte distribution width (RBC) [Ratio] 13.6 % Normal 11.6-14.8 [facility] Comment on above: Performed By: #### . Automated Diff #### [place] [id number] Hematocrit (Bld) [Volume fraction] 44.7 % Normal 36.0-46.0 [facility] Comment on above: Performed By: #### . Automated Diff #### [place] [id number] Hemoglobin (Bld) [Mass/Vol] 15.1 g/dL Normal 12.0-16.0 [facility] Comment on above: Performed By: #### . Automated Diff #### [place] [id number] MCH (RBC) [Entitic mass] 29.9 pg Normal 27.0-35.0 [facility] Comment on above: Performed By: #### . Automated Diff #### [place] [address] MCHC 33.7 % Normal 31.0-37.0 [facility] Comment on above: Performed By: #### . Automated Diff #### [place] [address] MCV (RBC) [Entitic vol] 88.8 fL Normal 80.0-100.0 [facility] Comment on above: Performed By: #### . Automated Diff #### [place] [address] Platelet 339 x10*3/mcL Normal 150-450 [facility] Comment on above: Performed By: #### . Automated Diff #### [place] [address] Platelet mean volume (Bld) [Entitic vol] 8.4 fL Normal 6.7-10.6 [facility] Comment on above: Performed By: #### . Automated Diff #### [place] [address] RBC 5.04 x10*6/mcL Normal 3.80-5.20 [facility] Comment on above: Performed By: #### . Automated Diff #### [place] [address] WBC 11.3 x10*3/mcL High 4.5-11.0 [facility] Comment on above: Performed By: #### . Automated Diff #### [place] [address] CMPon 05-15-2024 Albumin [Mass/Vol] 4.4 g/dL Normal 3.2-4.9 [facility] Comment on above: Performed By: #### . Automated Diff #### [place] [id number] Albumin/Globulin [Mass ratio] 1.0 {ratio} Low 1.1-2.2 [facility] Comment on above: Performed By: #### . Automated Diff #### [address] [address] Alk Phos 93 IU/L High 32-91 [facility] Comment on above: Performed By: #### . Automated Diff #### [address] [address] ALT [Catalytic activity/Vol] 83 U/L High 14-54 [facility] Comment on above: Performed By: #### . Automated Diff #### [address] [address] Anion gap [Moles/Vol] 12 mmol/L Normal 4-12 [facility] Comment on above: Performed By: #### . Automated Diff #### [address] [address] AST [Catalytic activity/Vol] 102 U/L High 15-41 [facility] Comment on above: Performed By: #### . Automated Diff #### [address] [address] Bili Total 0.7 mg/dL Normal 0.3-1.2 [facility] Comment on above: Performed By: #### . Automated Diff #### [address] [address] Calcium [Mass/Vol] 9.9 mg/dL Normal 8.5-10.3 [facility] Comment on above: Performed By: #### . Automated Diff #### [address] [address] Chloride [Moles/Vol] 102 mmol/L Normal 98-110 [facility] Comment on above: Performed By: #### . Automated Diff #### [address] [address] CO2 [Moles/Vol] 23 mmol/L Normal 22-32 [facility] Comment on above: Performed By: #### . Automated Diff #### [address] [address] Creatinine [Mass/Vol] 0.94 mg/dL Normal 0.44-1.03 [facility] Comment on above: Performed By: #### . Automated Diff #### [address] [address] Glucose [Mass/Vol] 154 mg/dL High 70-99 [facility] Comment on above: Performed By: #### . Automated Diff #### [address] [address] Potassium [Moles/Vol] 3.9 mmol/L Normal 3.4-4.8 [facility] Comment on above: Performed By: #### . Automated Diff #### [address] [address] Protein [Mass/Vol] 8.6 g/dL High 6.5-8.1 [facility] Comment on above: Performed By: #### . Automated Diff #### [address] [address] Sodium [Moles/Vol] 137 mmol/L Normal 133-142 [facility] Comment on above: Performed By: #### . Automated Diff #### [address] [address] Urea nitrogen [Mass/Vol] 13 mg/dL Normal 8-26 [facility] Comment on above: Performed By: #### . Automated Diff #### [address] [address] Urea nitrogen/Creatinine [Mass ratio] 13.8 mg/mg Normal 10.0-20.0 [facility] Comment on above: Performed By: #### . Automated Diff #### [address] [address] Diff Autoon 05-15-2024 Baso Absolute 0.1 x10*3/mcL Normal 0.0-0.2 [facility] Comment on above: Performed By: #### . Automated Diff #### [address] [address] Basophils/100 WBC (Bld) 0.7 % Normal 0.0-1.5 [facility] Comment on above: Performed By: #### . Automated Diff #### [address] [address] Eos Absolute 0.2 x10*3/mcL Normal 0.0-0.4 [facility] Comment on above: Performed By: #### . Automated Diff #### [address] [address] Eosinophils/100 WBC (Bld) 1.6 % Normal 0.0-5.4 [facility] Comment on above: Performed By: #### . Automated Diff #### [address] [address] Lymph Absolute 4.3 x10*3/mcL Normal 1.0-4.8 [facility] Comment on above: Performed By: #### . Automated Diff #### [address] [address] Lymphocytes/100 WBC (Bld) 37.5 % Normal 27.2-40.8 [facility] Comment on above: Performed By: #### . Automated Diff #### [address] [address] Webster Absolute 0.5 x10*3/mcL Normal 0.1-1.1 [facility] Comment on above: Performed By: #### . Automated Diff #### [address] [address] Monocytes/100 WBC (Bld) 4.7 % Normal 3.7-11.9 [facility] Comment on above: Performed By: #### . Automated Diff #### [address] [address] Neutro Absolute 6.3 x10*3/mcL Normal 1.8-7.7 [facility] Comment on above: Performed By: #### . Automated Diff #### [address] [address] Neutro Auto 55.5 % Normal 47.2-70.8 [facility] Comment on above: Performed By: #### . Automated Diff #### [address] [address] ED Clinical Summaryon 2023 ED Clinical Summary [address] [id number] ED Clinical Summary Person Information Name: Gael Ruby/[facility]_Terence Age: 28 Years : 1995 Sex: Female PCP: Yossi Golden MD Marital Status: Phone: Race: White Ethnicity: Not or Language: [place] Visit Reason: Abdominal pain; abdominal pain Acuity: 3 Enc Type: Emergency Med Service: Emergency Medicine Arrival: 05/15/2024 19:01:15 Discharge: 05/15/2024 21:20:00 LOS: 000 02:19 Checkin: 05/15/2024 19:01:15 Checkout: 05/15/2024 21:20:00 Dispo Type: Home or Self Care Address: [address] [place] [phone] Provider Notes: Diagnosis: 1:Left sided abdominal pain; [...] range between ( 27.2 and 40.8 ) Webster Auto: 4.7 % -- Normal range between [...] range between ( 36.0 and 46.0 ) Webster Absolute: 0.5 x10 MCH: 29.9 pg -- [...] That Were Updated - Follow Current Instructions [facility] [id number], [address], [place] [id number], [phone] Current promethazine (promethazine 25 mg oral tablet) [...] (breathe in) (more content not included)... Normal [facility] ED Note-Physicianon 05-15-20 ED Note-Physician Chief Complaint [...] quadrants] : [No costovertebral angle tenderness] Skin: [[place], warm, dry, no injury, no rashes] Neuro: [...] _ ? NEXUS C-spine Criteria: _ ? [place] Ankle Rule: _ ? [place] Knee Rule: _ ? [place] Criteria for [...] PRN, # 12 tabs, 0 Refill(s), Pharmacy: [facility] [id number] sodium chloride, 10 mL, IV Push, Injection, As Indicated, PRN flush, First Dose: 05/15/24 19:16:00 EDT, Dispense From Location: [facility], 05/15/24 19:16:00 EDT Discharge Patient NPO Peripheral IV Insert and Ma (more content not included)... Normal [facility] Lipaseon 05-15-2024 Lipase Lvl 56 IU/L High 22-51 [facility] Comment on above: Performed By: #### . Urinalysis Microscopic Auto #### [place] [address] UA w Culture if Indon 2023 Color (U) Yellow Normal Yellow [facility] Comment on above: Performed By: #### . Automated Diff #### [place] [address] Ketones Ql (U) Trace Abnormal Negative [facility] Comment on above: Performed By: #### . Automated Diff #### [address] [address] UA Blood Negative Normal Negative [facility] Comment on above: Performed By: #### . Automated Diff #### [address] [address] UA Clarity Clear Normal Clear [facility] Comment on above: Performed By: #### . Automated Diff #### [address] [address] UA Glucose Normal Normal Negative [facility] Comment on above: Performed By: #### . Automated Diff #### [address] [place] [address] UA Leukocyte Esterase Negative Normal Negative [facility] Comment on above: Performed By: #### . Automated Diff #### [address] [address] UA Nitrite Negative Normal Negative [facility] Comment on above: Performed By: #### . Automated Diff #### [address] [address] UA pH 6.0 Normal 4.5 - 7.8 [facility] Comment on above: Performed By: #### . Automated Diff #### [address] [address] UA Protein 30 mg/dL Abnormal Negative [facility] Comment on above: Performed By: #### . Automated Diff #### [address] [address] UA Source Clean Catch Normal [facility] Comment on above: Performed By: #### . Automated Diff #### [place] [id number] UA Spec Grav 1.035 Normal 1.003-1.035 [facility] Comment on above: Performed By: #### . Automated Diff #### [address] [address] UA Urobilinogen 0.2 mg/dL Normal 0.2 - 1.0 [facility] Comment on above: Performed By: #### . Automated Diff #### [place] [address] Urobilinogen (U) [Mass/Vol] Negative Normal Negative [facility] Comment on above: Performed By: #### . Automated Diff #### [place] [id number] [place] Stomach Views for gastric emptying W radionuclide Andi 05-14-2024 Severely delayed gastric emptying. [facility] RIS CONSOLIDATED EXAMINATION: NUCLEAR MEDICINE GASTRIC EMPTYING STUDY 05/14/2024 [...] HISTORY: ORDERING SYSTEM PROVIDED HISTORY: Diabetic gastroparesis (FORMERLY [facility]) TECHNOLOGIST PROVIDED HISTORY: SOLID Is the patient ?->No FINDINGS: The gastric emptying were calculated as follows: At 60 min, there is 12% emptying of the stomach. At 120 min, there is 14% emptying of the stomach. At 240 min, there is 37% emptying of the stomach. No significant esophageal retention, hiatal hernia or reflux was observed. [facility] Chadd John MD - 05/14/2024 EXAMINATION: NUCLEAR MEDICINE GASTRIC [...] HISTORY: ORDERING SYSTEM PROVIDED HISTORY: Diabetic gastroparesis ([facility]) TECHNOLOGIST PROVIDED HISTORY: SOLID Is the patient ?->No FINDINGS: The gastric emptying were calculated as follows: At 60 min, there is 12% emptying of the stomach. At 120 min, there is 14% emptying of the stomach. At 240 min, there is 37% emptying of the stomach. No significant esophageal retention, hiatal hernia or reflux was observed. IMPRESSION: Severely delayed gastric emptying. [facility] Radiology Study observation (narrative) [facility] [place] Stomach Views for gastric emptying W radionuclide POOrdered By: Chadd Acosta on 05-14-2024 [facility] Work Phone: No Panel Informationon 05-04 Tobacco smoking status Current Tobacco User Inva lid Interpretation Code RobertCumed .UA Microscp Aon 05-01-2024 UA Mucus Present Normal Absent [facility] Comment on above: Performed By: #### . Urinalysis Microscopic Auto #### [facility] [address] [place] [address] UA RBC Quant 0 /HPF Normal 0-5 [facility] Comment on above: Performed By: #### . Urinalysis Microscopic Auto #### [address] [address] UA Squepi Cells Quant 2 /HPF Normal 0-29 [facility] Comment on above: Performed By: #### . Urinalysis Microscopic Auto #### [address] [address] UA WBC Quant 1 /HPF Normal 0-5 [facility] Comment on above: Performed By: #### . Urinalysis Microscopic Auto #### [address] [address] ED Clinical Summaryon 2023 ED Clinical Summary [address] [id number] ED Clinical Summary Person Information Name: Gael Ruby Josep/[facility] Age: 28 Years : 1995 Sex: Female PCP: Yossi Golden MD Marital Status: Phone: Race: White Ethnicity: Not or Language: [place] Visit Reason: Abdominal pain; abdominal pain Acuity: 3 Enc Type: Emergency Med Service: Emergency Medicine Arrival: 05/01/2024 19:42:28 Discharge: 05/01/2024 21:35:00 LOS: 000 01:53 Checkin: 05/01/2024 19:42:28 Checkout: 05/01/2024 21:35:00 Dispo Type: Home or Self Care Address: [address] [place] [phone] Provider Notes: History of Present Illness 28-year-old?female [...] a da (more content not included)... Normal [facility] ED Note-Physicianon 05-01-20 ED Note-Physician Chief Complaint [...] 05/01/24 20:07:00 EDT, STAT, Dispense From Location: [facility], 05/01/24 20:07:00 EDT Lactated Ringers Injection intravenous solution, 1,000 mL, Rate: 983.61 mL/hr, Infuse Over: 61 minutes, IV Bolus, Soln-IV, Once, First Dose: 05/01/24 20:07:00 EDT, Stop Date: 05/01/24 20:07:00 EDT, Dispense From Location: ED, 05/01/24 20:07:00 EDT ondansetron, 4 mg, Oral, Tab-Dis, Once, PRN nausea, First Dose: 05/01/24 20:01:00 EDT, Dispense From Location: [facility], 05/01/24 20:01:00 EDT Test, Urine, Qualitative Urinalysis with Culture, if indicated Refresh vitals and sections below: Problem (more content not included)... Normal [facility] UA w Culture if Indon 2023 Color (U) Light-Yellow Normal Yellow [facility] Comment on above: Performed By: #### . Automated Diff #### [place] [address] Glucose (U) [Mass/Vol] 70 mg/dL Abnormal Negative [facility] Comment on above: Performed By: #### . Automated Diff #### [place] [address] Ketones Ql (U) Negative Normal Negative [facility] Comment on above: Performed By: #### . Automated Diff #### [place] [address] UA Blood Negative Normal Negative [facility] Comment on above: Performed By: #### . Automated Diff #### [address] [address] UA Clarity Clear Normal Clear [facility] Comment on above: Performed By: #### . Automated Diff #### [address] [address] UA Leukocyte Esterase Negative Normal Negative [facility] Comment on above: Performed By: #### . Automated Diff #### [place] [id number] UA Nitrite Negative Normal Negative [facility] Comment on above: Performed By: #### . Automated Diff #### [place] [address] UA pH 6.0 Normal 4.5 - 7.8 [facility] Comment on above: Performed By: #### . Automated Diff #### [place] [address] UA Protein 10 mg/dL Normal Negative [facility] Comment on above: Performed By: #### . Automated Diff #### [address] [address] UA Source Clean Catch Normal [facility] Comment on above: Performed By: #### . Automated Diff #### [address] [address] UA Spec Grav 1.022 Normal 1.003-1.035 [facility] Comment on above: Performed By: #### . Automated Diff #### [address] [address] UA Urobilinogen Normal Normal 0.2 - 1.0 [facility] Comment on above: Performed By: #### . Automated Diff #### [place] [id number] Urobilinogen (U) [Mass/Vol] Negative Normal Negative [facility] Comment on above: Performed By: #### . Automated Diff #### [place] [id number] XR Abdomen 2 Viewson 024 XR Abdomen [...] Electronically Signed in Other Vendor System) Normal [facility] .eGFRon 04-27-2024 GFR/1.73 sq M.predicted MDRD (S/P/Bld) [Vol rate/Area] mL/min/{1.73_m2} Normal >=60 [facility] Comment on above: Result Comment: [facility] Laboratories have implemented the eGFR calculation [...] years Performed By: #### C BC #### [place] [address] CBC w/ Diffon 04-27-2024 Erythrocyte distribution width (RBC) [Ratio] 13.3 % Normal 11.6-14.8 [facility] Comment on above: Performed By: #### . Urinalysis Microscopic Auto #### [place] [address] Hematocrit (Bld) [Volume fraction] 43.4 % Normal 36.0-46.0 [facility] Comment on above: Performed By: #### . Urinalysis Microscopic Auto #### [place] [id number] Hemoglobin (Bld) [Mass/Vol] 14.5 g/dL Normal 12.0-16.0 [facility] Comment on above: Performed By: #### . Urinalysis Microscopic Auto #### [place] [id number] MCH (RBC) [Entitic mass] 29.5 pg Normal 27.0-35.0 [facility] Comment on above: Performed By: #### . Urinalysis Microscopic Auto #### [place] [id number] MCHC 33.3 % Normal 31.0-37.0 [facility] Comment on above: Performed By: #### . Urinalysis Microscopic Auto #### [place] [address] MCV (RBC) [Entitic vol] 88.5 fL Normal 80.0-100.0 [facility] Comment on above: Performed By: #### . Urinalysis Microscopic Auto #### [place] [address] Platelet 335 x10*3/mcL Normal 150-450 [facility] Comment on above: Performed By: #### . Urinalysis Microscopic Auto #### [place] [address] Platelet mean volume (Bld) [Entitic vol] 8.2 fL Normal 6.7-10.6 [facility] Comment on above: Performed By: #### . Urinalysis Microscopic Auto #### [place] [address] RBC 4.91 x10*6/mcL Normal 3.80-5.20 [facility] Comment on above: Performed By: #### . Urinalysis Microscopic Auto #### [place] [address] WBC 13.9 x10*3/mcL High 4.5-11.0 [facility] Comment on above: Performed By: #### . Urinalysis Microscopic Auto #### [place] [address] CMPon 04-27-2024 Albumin [Mass/Vol] 4.3 g/dL Normal 3.2-4.9 [facility] Comment on above: Performed By: #### . Automated Diff #### [place] [address] Albumin/Globulin [Mass ratio] 1.0 {ratio} Low 1.1-2.2 [facility] Comment on above: Performed By: #### . Automated Diff #### [place] [address] Alk Phos 94 IU/L High 32-91 [facility] Comment on above: Performed By: #### . Automated Diff #### [address] [address] ALT [Catalytic activity/Vol] 64 U/L High 14-54 [facility] Comment on above: Performed By: #### . Automated Diff #### [address] [address] Anion gap [Moles/Vol] 13 mmol/L High 4-12 [facility] Comment on above: Performed By: #### . Automated Diff #### [address] [address] AST [Catalytic activity/Vol] 66 U/L High 15-41 [facility] Comment on above: Performed By: #### . Automated Diff #### [address] [address] Bili Total 1.2 mg/dL Normal 0.3-1.2 [facility] Comment on above: Performed By: #### . Automated Diff #### [address] [address] Calcium [Mass/Vol] 9.4 mg/dL Normal 8.5-10.3 [facility] Comment on above: Performed By: #### . Automated Diff #### [address] [address] Chloride [Moles/Vol] 101 mmol/L Normal 98-110 [facility] Comment on above: Performed By: #### . Automated Diff #### [address] [address] CO2 [Moles/Vol] 22 mmol/L Normal 22-32 [facility] Comment on above: Performed By: #### . Automated Diff #### [address] [address] Creatinine [Mass/Vol] 0.77 mg/dL Normal 0.44-1.03 [facility] Comment on above: Performed By: #### . Automated Diff #### [address] [address] Glucose [Mass/Vol] 143 mg/dL High 70-99 [facility] Comment on above: Performed By: #### . Automated Diff #### [address] [address] Potassium [Moles/Vol] 3.8 mmol/L Normal 3.4-4.8 [facility] Comment on above: Performed By: #### . Automated Diff #### [address] [address] Protein [Mass/Vol] 8.5 g/dL High 6.5-8.1 [facility] Comment on above: Performed By: #### . Automated Diff #### [address] [address] Sodium [Moles/Vol] 136 mmol/L Normal 133-142 [facility] Comment on above: Performed By: #### . Automated Diff #### [address] [address] Urea nitrogen [Mass/Vol] 9 mg/dL Normal 8-26 [facility] Comment on above: Performed By: #### . Automated Diff #### [address] [address] Urea nitrogen/Creatinine [Mass ratio] 11.7 mg/mg Normal 10.0-20.0 [facility] Comment on above: Performed By: #### . Automated Diff #### [address] [address] Diff Autoon 04-27-2024 Baso Absolute 0.1 x10*3/mcL Normal 0.0-0.2 [facility] Comment on above: Performed By: #### . Urinalysis Microscopic Auto #### [address] [address] Basophils/100 WBC (Bld) 0.8 % Normal 0.0-1.5 [facility] Comment on above: Performed By: #### . Urinalysis Microscopic Auto #### [address] [address] Eos Absolute 0.1 x10*3/mcL Normal 0.0-0.4 [facility] Comment on above: Performed By: #### . Urinalysis Microscopic Auto #### [address] [address] Eosinophils/100 WBC (Bld) 0.8 % Normal 0.0-5.4 [facility] Comment on above: Performed By: #### . Urinalysis Microscopic Auto #### [address] [address] Lymph Absolute 4.2 x10*3/mcL Normal 1.0-4.8 [facility] Comment on above: Performed By: #### . Urinalysis Microscopic Auto #### [address] [address] Lymphocytes/100 WBC (Bld) 29.7 % Normal 27.2-40.8 [facility] Comment on above: Performed By: #### . Urinalysis Microscopic Auto #### [address] [address] [place] Absolute 0.6 x10*3/mcL Normal 0.1-1.1 [facility] Comment on above: Performed By: #### . Urinalysis Microscopic Auto #### [address] [address] Monocytes/100 WBC (Bld) 4.4 % Normal 3.7-11.9 [facility] Comment on above: Performed By: #### . Urinalysis Microscopic Auto #### [address] [address] Neutro Absolute 9.0 x10*3/mcL High 1.8-7.7 [facility] Comment on above: Performed By: #### . Urinalysis Microscopic Auto #### [address] [address] Neutro Auto 64.3 % Normal 47.2-70.8 [facility] Comment on above: Performed By: #### . Urinalysis Microscopic Auto #### [address] [address] ED Clinical Summaryon 2023 ED Clinical Summary [address] [address] ED Clinical Summary Person Information Name: Gael Ruby/[place] Age: 28 Years : 1995 Sex: Female PCP: Chantel GREWAL, Yossi Bustillo Marital Status: Single Phone: Race: White Ethnicity: Not or Language: [place] Visit Reason: Abdominal pain; abdominal pain Acuity: 3 Enc Type: Emergency Med Service: Emergency Medicine Arrival: 04/27/2024 19:20:54 Discharge: 04/27/2024 23:28:00 LOS: 000 04:08 Checkin: 04/27/2024 19:20:54 Checkout: 04/27/2024 23:28:00 Dispo Type: Home or Self Care Address: [address] [place] [phone] Provider Notes: Diagnosis: 1:Gastroparesis Problems No Problems [...] range between ( 27.2 and 40.8 ) Webster Auto: 4.4 % -- Normal range between [...] range between ( 36.0 and 46.0 ) [place] Absolute: 0.6 x10 MCH: 29.5 pg -- [...] arranged With: Address: When: Yossi Golden [address] [place] [address] Business (1) Discharge Orders: Discharge Patient 04/27/24 23:04:00 EDT, Discharge to Home, Self Return to Work/School 04/27/24 23:06:00 EDT, 04/29/24 8:00:00 EDT, 04/27/24 23:06:00 EDT Patient Education Information: Constipation (Adult); Gastroparesis [facility] Poison Help line: . [facility] Hotline: [place] Tobacco Quit Line: [place], [place]) [address]: [phone] [place], [place]) [address]: [phone] [facility] [address], [place]: [phone] [facility] ED Note-Nursingon 04-27-2024 ED Note-Nursing pt. states that she has been seen multiple times in the ED. States They just keep telling me that I have gastritis and sending me home. Electronically signed by Supa Elmore 04/27/24 20:59 EDT Normal [facility] ED Note-Physicianon 04-27-20 ED Note-Physician Chief Complaint [...] Nehal Rapp DO 05/10/24 02:26 EDT Normal [facility] Lipaseon 04-27-2024 Lipase Lvl 50 IU/L Normal 22-51 [facility] Comment on above: Performed By: #### . Automated Diff #### [place] [address] Magnesiumon 04-27-2024 Magnesium [Mass/Vol] 2.1 mg/dL Normal 1.7-2.4 [facility] Comment on above: Performed By: #### . Automated Diff #### [place] [id number] .UA Microscp Aon 04-26-2024 UA Mucus Present Normal Absent [facility] Comment on above: Performed By: #### U CI #### [place] [address] UA RBC Quant 0 /HPF Normal 0-5 [facility] Comment on above: Performed By: #### U CI #### [place] [address] UA Squepi Cells Quant 5 /HPF Normal 0-29 [facility] Comment on above: Performed By: #### U CI #### [place] [address] UA WBC Quant 2 /HPF Normal 0-5 [facility] Comment on above: Performed By: #### U CI #### [place] [address] .eGFRon 04-26-2024 GFR/1.73 sq M.predicted MDRD (S/P/Bld) [Vol rate/Area] mL/min/{1.73_m2} Normal >=60 [facility] Comment on above: Result Comment: [facility] Laboratories have implemented the eGFR calculation [...] years Performed By: #### E GFR #### [address] [address] CBC w/ Diffon 04-26-2024 Erythrocyte distribution width (RBC) [Ratio] 13.7 % Normal 11.6-14.8 [facility] Comment on above: Performed By: #### L IP #### [address] [address] Hematocrit (Bld) [Volume fraction] 44.8 % Normal 36.0-46.0 [facility] Comment on above: Performed By: #### L IP #### [address] [address] Hemoglobin (Bld) [Mass/Vol] 15.0 g/dL Normal 12.0-16.0 [facility] Comment on above: Performed By: #### L IP #### [address] [address] MCH (RBC) [Entitic mass] 29.8 pg Normal 27.0-35.0 [facility] Comment on above: Performed By: #### L IP #### [address] [address] MCHC 33.4 % Normal 31.0-37.0 [facility] Comment on above: Performed By: #### L IP #### [place] [id number] MCV (RBC) [Entitic vol] 89.2 fL Normal 80.0-100.0 [facility] Comment on above: Performed By: #### L IP #### [place] [id number] Platelet 313 x10*3/mcL Normal 150-450 [facility] Comment on above: Performed By: #### L IP #### [place] [id number] Platelet mean volume (Bld) [Entitic vol] 8.4 fL Normal 6.7-10.6 [facility] Comment on above: Performed By: #### L IP #### [place] [id number] RBC 5.02 x10*6/mcL Normal 3.80-5.20 [facility] Comment on above: Performed By: #### L IP #### [place] [id number] WBC 15.1 x10*3/mcL High 4.5-11.0 [facility] Comment on above: Performed By: #### L IP #### [place] [address] CMPon 04-26-2024 Albumin [Mass/Vol] 4.3 g/dL Normal 3.2-4.9 [facility] Comment on above: Performed By: #### C D:[id number] #### [place] [id number] Albumin/Globulin [Mass ratio] 1.0 {ratio} Low 1.1-2.2 [facility] Comment on above: Performed By: #### C D:[id number] #### [place] [id number] Alk Phos 90 IU/L Normal 32-91 [facility] Comment on above: Performed By: #### C D:[id number] #### [place] [id number] ALT [Catalytic activity/Vol] 67 U/L High 14-54 [facility] Comment on above: Performed By: #### C D:[id number] #### [address] [address] Anion gap [Moles/Vol] 12 mmol/L Normal 4-12 [facility] Comment on above: Performed By: #### C D:[id number] #### [address] [address] AST [Catalytic activity/Vol] 55 U/L High 15-41 [facility] Comment on above: Performed By: #### C D:[id number] #### [address] [address] Bili Total 1.0 mg/dL Normal 0.3-1.2 [facility] Comment on above: Performed By: #### C D:[id number] #### [address] [address] Calcium [Mass/Vol] 9.5 mg/dL Normal 8.5-10.3 [facility] Comment on above: Performed By: #### C D:[id number] #### [address] [address] Chloride [Moles/Vol] 103 mmol/L Normal 98-110 [facility] Comment on above: Performed By: #### C D:[id number] #### [address] [address] CO2 [Moles/Vol] 22 mmol/L Normal 22-32 [facility] Comment on above: Performed By: #### C D:[id number] #### [address] [address] Creatinine [Mass/Vol] 0.75 mg/dL Normal 0.44-1.03 [facility] Comment on above: Performed By: #### C D:[id number] #### [address] [address] Glucose [Mass/Vol] 193 mg/dL High 70-99 [facility] Comment on above: Performed By: #### C D:[id number] #### [address] [address] Potassium [Moles/Vol] 3.8 mmol/L Normal 3.4-4.8 [facility] Comment on above: Performed By: #### C D:[id number] #### [address] [address] Protein [Mass/Vol] 8.5 g/dL High 6.5-8.1 [facility] Comment on above: Performed By: #### C D:[id number] #### [address] [address] Sodium [Moles/Vol] 137 mmol/L Normal 133-142 [facility] Comment on above: Performed By: #### C D:[id number] #### [address] [address] Urea nitrogen [Mass/Vol] 11 mg/dL Normal 8-26 [facility] Comment on above: Performed By: #### C D:[id number] #### [address] [address] Urea nitrogen/Creatinine [Mass ratio] 14.7 mg/mg Normal 10.0-20.0 [facility] Comment on above: Performed By: #### C D:[id number] #### [address] [address] [address] Abdomen Pelvis w/ IV Cont [facility] 04-26-2024 CT Abdomen Pelvis w/ IV Contrast [...] the right dome is excluded from the [id number]. Biliary tree: Normal. Gallbladder: Cholecystectomy Spleen: Similar [...] hepatosplenomegaly. Diffuse hepatic steatosis. Radiation Dose Estimate: CTDI(mGy):0.851725 / / / kVp:120.435485 / mAs:0.262601 / / / DLP(mGy-cm):3.642318Av dy Part: Abdomen CTDI(mGy):37.895641 / / / kVp:140.590712 / mAs:178.666495 / / / DLP(mGy-cm):1963.77827 1Body Part: Abdomen Final Dictated by: Cristofer Pedersen MD Dictated DT/TM: 04.26.2024 10:43 am Signed by: Cristofer Pedersen MD Signed (Electronic Signature): 04.26.2024 10:48 am (If Report Is Signed, Electronically Signed in Other Vendor System) Normal [facility] CoV2 [place] 04-26-2024 Influenza A PCR Negative Normal Negative [facility] Comment on above: Performed By: #### C D:[id number] #### [place] [address] Influenza B PCR Negative Normal Negative [facility] Comment on above: Performed By: #### C D:[id number] #### [place] [id number] LAB ONLY Result Called? No Normal [facility] Comment on above: Performed By: #### C D:[id number] #### [address] [address] RSV PCR Negative Normal Negative [facility] Comment on above: Result Comment: Resu lts [...] inaccurate positive results. Performed By: #### C D:[id number] #### [address] [address] SARS-CoV-2 RNA Detection Negative Normal Negative [facility] Comment on above: Result Comment: The 2019 [...] their healthcare provider. Performed By: #### C D:[id number] #### [address] [address] Diff Autoon 04-26-2024 Baso Absolute 0.1 x10*3/mcL Normal 0.0-0.2 [facility] Comment on above: Performed By: #### C D:[id number] #### [address] [address] Basophils/100 WBC (Bld) 1.0 % Normal 0.0-1.5 [facility] Comment on above: Performed By: #### C D:[id number] #### [address] [address] Eos Absolute 0.2 x10*3/mcL Normal 0.0-0.4 [facility] Comment on above: Performed By: #### C D:[id number] #### [address] [address] Eosinophils/100 WBC (Bld) 1.3 % Normal 0.0-5.4 [facility] Comment on above: Performed By: #### C D:[id number] #### [address] [address] Lymph Absolute 3.5 x10*3/mcL Normal 1.0-4.8 [facility] Comment on above: Performed By: #### C D:[id number] #### [address] [address] Lymphocytes/100 WBC (Bld) 23.4 % Low 27.2-40.8 [facility] Comment on above: Performed By: #### C D:[id number] #### [address] [address] [place] Absolute 0.9 x10*3/mcL Normal 0.1-1.1 [facility] Comment on above: Performed By: #### C D:[id number] #### [address] [address] Monocytes/100 WBC (Bld) 5.8 % Normal 3.7-11.9 [facility] Comment on above: Performed By: #### C D:[id number] #### [address] [address] Neutro Absolute 10.3 x10*3/mcL High 1.8-7.7 [facility] Comment on above: Performed By: #### C D:[id number] #### [address] [address] Neutro Auto 68.5 % Normal 47.2-70.8 [facility] Comment on above: Performed By: #### C D:[id number] #### [address] [address] ED Clinical Summaryon 2023 ED Clinical Summary [facility] [address] [place] [address] ED Clinical Summary Person Information Name: Gael Ruby/Anisha Age: 28 Years : 1995 Sex: Female PCP: Chantel GREWAL, Yossi Bustillo Marital Status: Phone: Race: White Ethnicity: Not or Language: [place] Visit Reason: Nausea/vomiting; abdominal pain Acuity: 3 Enc Type: Emergency Med Service: Emergency Medicine Arrival: 04/26/2024 08:40:39 Discharge: 04/26/2024 11:25:00 LOS: 000 02:45 Checkin: 04/26/2024 08:40:39 Checkout: 04/26/2024 11:25:00 Dispo Type: Home or Self Care Address: [address] [place] [phone] Provider Notes: History of Present Illness Patient [...] quadrants] : [No costovertebral angle tenderness] Skin: [[place], warm, dry, no injury, no rashes] Neuro: [...] range between ( 27.2 and 40.8 ) [place] Auto: 5.8 % -- Normal range between [...] range between ( 36.0 and 46.0 ) [place] Absolute: 0.9 x10 MCH: 29.8 pg -- [...] 10 mg/ (more content not included)... Normal [facility] ED Note-Physicianon 04-26-20 ED Note-Physician Chief Complaint [...] quadrants] : [No costovertebral angle tenderness] Skin: [[place], warm, dry, no injury, no rashes] Neuro: [...] _ ? NEXUS C-spine Criteria: _ ? [place] Ankle Rule: _ ? [place] Knee Rule: _ ? [place] Criteria for [...] ACHS, PRN, (more content not included)... Normal [facility] Lipaseon 04-26-2024 Lipase Lvl 56 IU/L High 22-51 [facility] Comment on above: Performed By: #### L IP #### [address] [place] [address] UA w Culture if Indon 2023 Color (U) Light-Yellow Normal Yellow [facility] Comment on above: Performed By: #### C D:[id number] #### [address] [place] [address] Ketones Ql (U) Negative Normal Negative [facility] Comment on above: Performed By: #### C D:[id number] #### [address] [address] UA Blood Negative Normal Negative [facility] Comment on above: Performed By: #### C D:[id number] #### [address] [place] [address] UA Clarity Clear Normal Clear [facility] Comment on above: Performed By: #### C D:[id number] #### [address] [address] UA Glucose Normal Normal Negative [facility] Comment on above: Performed By: #### C D:[id number] #### [address] [address] UA Leukocyte Esterase Negative Normal Negative [facility] Comment on above: Performed By: #### C D:[id number] #### [address] [address] UA Nitrite Negative Normal Negative [facility] Comment on above: Performed By: #### C D:[id number] #### [address] [place] [address] UA pH 6.5 Normal 4.5 - 7.8 [facility] Comment on above: Performed By: #### C D:[id number] #### [address] [address] UA Protein 10 mg/dL Normal Negative [facility] Comment on above: Performed By: #### C D:[id number] #### [address] [address] UA Source Clean Catch Normal [facility] Comment on above: Performed By: #### C D:[id number] #### [place] [address] UA Spec Grav 1.023 Normal 1.003-1.035 [facility] Comment on above: Performed By: #### C D:[id number] #### [place] [address] UA Urobilinogen Normal Normal 0.2 - 1.0 [facility] Comment on above: Performed By: #### C D:[id number] #### [place] [address] Urobilinogen (U) [Mass/Vol] Negative Normal Negative [facility] Comment on above: Performed By: #### C D:[id number] #### [place] [address] .UA Microscp Aon 04-24-2024 UA Bacteria Present Abnormal Absent [facility] Comment on above: Performed By: #### . Urinalysis Microscopic Auto #### [place] [address] UA Mucus Present Normal Absent [facility] Comment on above: Performed By: #### . Urinalysis Microscopic Auto #### [place] [address] UA RBC Quant 0 /HPF Normal 0-5 [facility] Comment on above: Performed By: #### . Urinalysis Microscopic Auto #### [place] [id number] UA Squepi Cells Quant 2 /HPF Normal 0-29 [facility] Comment on above: Performed By: #### . Urinalysis Microscopic Auto #### [place] [address] UA WBC Quant 1 /HPF Normal 0-5 [facility] Comment on above: Performed By: #### . Urinalysis Microscopic Auto #### [address] [place] [address] .eGFRon 04-24-2024 GFR/1.73 sq M.predicted MDRD (S/P/Bld) [Vol rate/Area] mL/min/{1.73_m2} Normal >=60 [facility] Comment on above: Order Comment: Order added by Discern rule Result Comment: [facility] have implemented the eGFR calculation [...] years Performed By: #### L IP #### [place] [address] CBC w/ Diffon 04-24-2024 Erythrocyte distribution width (RBC) [Ratio] 13.4 % Normal 11.6-14.8 [facility] Comment on above: Performed By: #### . Urinalysis Microscopic Auto #### [address] [address] Hematocrit (Bld) [Volume fraction] 45.1 % Normal 36.0-46.0 [facility] Comment on above: Performed By: #### . Urinalysis Microscopic Auto #### [address] [address] Hemoglobin (Bld) [Mass/Vol] 15.5 g/dL Normal 12.0-16.0 [facility] Comment on above: Performed By: #### . Urinalysis Microscopic Auto #### [place] [id number] MCH (RBC) [Entitic mass] 30.9 pg Normal 27.0-35.0 [facility] Comment on above: Performed By: #### . Urinalysis Microscopic Auto #### [place] [address] MCHC 34.4 % Normal 31.0-37.0 [facility] Comment on above: Performed By: #### . Urinalysis Microscopic Auto #### [place] [address] MCV (RBC) [Entitic vol] 89.9 fL Normal 80.0-100.0 [facility] Comment on above: Performed By: #### . Urinalysis Microscopic Auto #### [place] [address] Platelet 351 x10*3/mcL Normal 150-450 [facility] Comment on above: Performed By: #### . Urinalysis Microscopic Auto #### [place] [address] Platelet mean volume (Bld) [Entitic vol] 8.7 fL Normal 6.7-10.6 [facility] Comment on above: Performed By: #### . Urinalysis Microscopic Auto #### [place] [address] RBC 5.02 x10*6/mcL Normal 3.80-5.20 [facility] Comment on above: Performed By: #### . Urinalysis Microscopic Auto #### [place] [id number] WBC 12.5 x10*3/mcL High 4.5-11.0 [facility] Comment on above: Performed By: #### . Urinalysis Microscopic Auto #### [place] [address] CMPon 04-24-2024 Albumin [Mass/Vol] 4.3 g/dL Normal 3.2-4.9 [facility] Comment on above: Performed By: #### C D:[id number] #### [address] [address] Albumin/Globulin [Mass ratio] 1.1 {ratio} Normal 1.1-2.2 [facility] Comment on above: Performed By: #### C D:[id number] #### [address] [address] Alk Phos 99 IU/L High 32-91 [facility] Comment on above: Result Comment: This test result could be falsely elevated due to interference from the hemolyzed condition of the specimen. Performed By: #### C D:[id number] #### [address] [address] ALT [Catalytic activity/Vol] 90 U/L High 14-54 [facility] Comment on above: Result Comment: This test result could be falsely elevated due to interference from the hemolyzed condition of the specimen. Performed By: #### C D:[id number] #### [address] [address] Anion gap [Moles/Vol] 9 mmol/L Normal 4-12 [facility] Comment on above: Performed By: #### C D:[id number] #### [address] [address] AST [Catalytic activity/Vol] 148 U/L High 15-41 [facility] Comment on above: Result Comment: This test result could be falsely elevated due to interference from the hemolyzed condition of the specimen. Performed By: #### C D:[id number] #### [address] [address] Bili Total 1.4 mg/dL High 0.3-1.2 [facility] Comment on above: Result Comment: This test result could be falsely elevated due to interference from the hemolyzed condition of the specimen. Performed By: #### C D:[id number] #### [address] [place] [address] Calcium [Mass/Vol] 9.4 mg/dL Normal 8.5-10.3 [facility] Comment on above: Performed By: #### C D:[id number] #### [address] [address] Chloride [Moles/Vol] 103 mmol/L Normal 98-110 [facility] Comment on above: Performed By: #### C D:[id number] #### [address] [address] CO2 [Moles/Vol] 20 mmol/L Low 22-32 [facility] Comment on above: Performed By: #### C D:[id number] #### [address] [address] Creatinine [Mass/Vol] 0.84 mg/dL Normal 0.44-1.03 [facility] Comment on above: Performed By: #### C D:[id number] #### [address] [address] Glucose [Mass/Vol] 212 mg/dL High 70-99 [facility] Comment on above: Performed By: #### C D:[id number] #### [address] [address] Potassium [Moles/Vol] 4.2 mmol/L Normal 3.4-4.8 [facility] Comment on above: Result Comment: This test result could be falsely elevated due to interference from the hemolyzed condition of the specimen. Performed By: #### C D:[id number] #### [address] [address] Protein [Mass/Vol] 8.2 g/dL High 6.5-8.1 [facility] Comment on above: Performed By: #### C D:[id number] #### [address] [address] Sodium [Moles/Vol] 132 mmol/L Low 133-142 [facility] Comment on above: Performed By: #### C D:[id number] #### [address] [address] Urea nitrogen [Mass/Vol] 8 mg/dL Normal 8-26 [facility] Comment on above: Performed By: #### C D:[id number] #### [address] [address] Urea nitrogen/Creatinine [Mass ratio] 9.5 mg/mg Low 10.0-20.0 [facility] Comment on above: Performed By: #### C D:[id number] #### [address] [address] Diff Autoon 04-24-2024 Baso Absolute 0.1 x10*3/mcL Normal 0.0-0.2 [facility] Comment on above: Performed By: #### U CI #### [address] [address] Basophils/100 WBC (Bld) 0.8 % Normal 0.0-1.5 [facility] Comment on above: Performed By: #### U CI #### [address] [address] Eos Absolute 0.2 x10*3/mcL Normal 0.0-0.4 [facility] Comment on above: Performed By: #### U CI #### [address] [address] Eosinophils/100 WBC (Bld) 1.5 % Normal 0.0-5.4 [facility] Comment on above: Performed By: #### U CI #### [address] [address] Lymph Absolute 3.9 x10*3/mcL Normal 1.0-4.8 [facility] Comment on above: Performed By: #### U CI #### [address] [address] Lymphocytes/100 WBC (Bld) 31.4 % Normal 27.2-40.8 [facility] Comment on above: Performed By: #### U CI #### [address] [address] [place] Absolute 0.6 x10*3/mcL Normal 0.1-1.1 [facility] Comment on above: Performed By: #### U CI #### [address] [address] Monocytes/100 WBC (Bld) 4.5 % Normal 3.7-11.9 [facility] Comment on above: Performed By: #### U CI #### [address] [address] Neutro Absolute 7.7 x10*3/mcL Normal 1.8-7.7 [facility] Comment on above: Performed By: #### U CI #### [address] [address] Neutro Auto 61.8 % Normal 47.2-70.8 [facility] Comment on above: Performed By: #### U CI #### [address] [address] ED Clinical Summaryon 2023 ED Clinical Summary [address] [id number] ED Clinical Summary Person Information Name: Gael Ruby Josep/[facility] Age: 28 Years : 1995 Sex: Female PCP: Yossi Golden MD Marital Status: Phone: Race: White Ethnicity: Not or Language: [place] Visit Reason: N/V/D; Dizziness; dizziness Acuity: 3 Enc Type: Emergency Med Service: Emergency Medicine Arrival: 04/24/2024 18:24:10 Discharge: 04/24/2024 21:50:00 LOS: 000 03:26 Checkin: 04/24/2024 18:24:10 Checkout: 04/24/2024 21:50:00 Dispo Type: Home or Self Care Address: [address] [place] [phone] Provider Notes: Diagnosis: 1:Gastroenteritis Problems No Problems [...] range between ( 27.2 and 40.8 ) [place] Auto: 4.5 % -- Normal range between [...] range between ( 36.0 and 46.0 ) [place] Absolute: 0.6 x10 MCH: 30.9 pg -- [...] This Visit Final Med List: New Medications [facility] [id number], [address] [place], [place] [id number], [phone] promethazine (promethazine 12.5 mg oral tablet) 1 [...] dulaglutide (Tr (more content not included)... Normal [facility] ED Note-Physicianon 04-24-20 ED Note-Physician Chief Complaint [...] Ovarian cyst Procedure/Surgical History Dilation and curettage [place] Tooth extraction (2009) Oopherectomy (06/2010) Tonsillectomy and [...] QID, PRN (more content not included)... Normal [facility] Lipaseon 04-24-2024 Lipase Lvl 58 IU/L High 22-51 [facility] Comment on above: Performed By: #### L IP #### [facility] [address] [place] [address] Magnesiumon 04-24-2024 Magnesium [Mass/Vol] 2.1 mg/dL Normal 1.7-2.4 [facility] Comment on above: Result Comment: This test result could be falsely elevated due to interference from the hemolyzed condition of the specimen. Performed By: #### . Urinalysis Microscopic Auto #### [address] [address] UA w Culture if Indon 2023 Color (U) Light-Yellow Normal Yellow [facility] Comment on above: Performed By: #### U CI #### [address] [address] Ketones Ql (U) Negative Normal Negative [facility] Comment on above: Performed By: #### U CI #### [address] [address] UA Blood Negative Normal Negative [facility] Comment on above: Performed By: #### U CI #### [address] [address] UA Clarity Clear Normal Clear [facility] Comment on above: Performed By: #### U CI #### [address] [address] UA Glucose Normal Normal Negative [facility] Comment on above: Performed By: #### U CI #### [address] [address] UA Leukocyte Esterase Negative Normal Negative [facility] Comment on above: Performed By: #### U CI #### [address] [address] UA Nitrite Negative Normal Negative [facility] Comment on above: Performed By: #### U CI #### [address] [address] UA pH 6.0 Normal 4.5 - 7.8 [facility] Comment on above: Performed By: #### U CI #### [address] [address] UA Protein 10 mg/dL Normal Negative [facility] Comment on above: Performed By: #### U CI #### [address] [address] UA Source Clean Catch Normal [facility] Comment on above: Performed By: #### U CI #### [facility] [address] [place] [address] UA Spec Grav 1.014 Normal 1.003-1.035 [facility] Comment on above: Performed By: #### U CI #### [facility] [address] [place] [address] UA Urobilinogen Normal Normal 0.2 - 1.0 [facility] Comment on above: Performed By: #### U CI #### [facility] [address] [place] [address] Urobilinogen (U) [Mass/Vol] Negative Normal Negative [facility] Comment on above: Performed By: #### U CI #### [facility] [address] [place] [address] Basic Metabolic Panelon 07-3 Anion gap [Moles/Vol] 11 mmol/L 9 - 17 mmol/L [facility] Calcium [Mass/Vol] 9.7 mg/dL 8.6 - 10. 4 mg/dL [facility] Chloride [Moles/Vol] 100 mmol/L 98 - 10 7 mmol/L [facility] CO2 [Moles/Vol] 27 mmol/L 20 - 31 mmol/L [facility] Creatinine [Mass/Vol] 0.7 mg/dL 0.5 - 0.9 mg/dL [facility] Est, Glom Filt Rate - PINF [facility] Comment on above: These results are [...] 197 mg/dL High 70 - 99 mg/dL [facility] Interpretation and review of laboratory results Abnormal [facility] Potassium [Moles/Vol] 4.0 mmol/L 3.7 - 5.3 mmol/L [facility] Sodium [Moles/Vol] 138 mmol/L 135 - 144 mmol/L [facility] Urea nitrogen [Mass/Vol] 10 mg/dL 6 - 20 mg/dL [facility] Urea nitrogen/Creatinine [Mass ratio] 14 mg/mg 9 - 20 [facility] Hemoglobin A1Con 04-21-2024 Average glucose Estimated from glycated hemoglobin (Bld) [Mass/Vol] 235 mg/dL [facility] Comment on above: The ADA and AACC rec ommend providing the estimated average glucose result to permit better patient understanding of their HBA1c result. HbA1c (Bld) [Mass fraction] 9.8 % High 4.0 - 6.0 % [facility] Interpretation and review of laboratory results Abnormal [facility] .UA Microscp Aon 04-20-2024 UA Mucus Present Normal Absent [facility] Comment on above: Performed By: #### U CI #### [place] [address] UA RBC Quant 0 /HPF Normal 0-5 [facility] Comment on above: Performed By: #### U CI #### [place] [address] UA Squepi Cells Quant <1 Normal 0-29 [facility] Comment on above: Performed By: #### U CI #### [place] [address] UA WBC Quant 0 /HPF Normal 0-5 [facility] Comment on above: Performed By: #### U CI #### [place] [address] .eGFRon 04-20-2024 GFR/1.73 sq M.predicted MDRD (S/P/Bld) [Vol rate/Area] mL/min/{1.73_m2} Normal >=60 [facility] Comment on above: Result Comment: [facility] have implemented the eGFR calculation [...] years Performed By: #### L IP #### [place] [address] CBC w/ Diffon 04-20-2024 Erythrocyte distribution width (RBC) [Ratio] 13.3 % Normal 11.6-14.8 [facility] Comment on above: Performed By: #### C BC #### [place] [id number] Hematocrit (Bld) [Volume fraction] 42.4 % Normal 36.0-46.0 [facility] Comment on above: Performed By: #### C BC #### [address] [address] Hemoglobin (Bld) [Mass/Vol] 14.3 g/dL Normal 12.0-16.0 [facility] Comment on above: Performed By: #### C BC #### [address] [address] MCH (RBC) [Entitic mass] 30.2 pg Normal 27.0-35.0 [facility] Comment on above: Performed By: #### C BC #### [address] [address] MCHC 33.9 % Normal 31.0-37.0 [facility] Comment on above: Performed By: #### C BC #### [address] [address] MCV (RBC) [Entitic vol] 89.3 fL Normal 80.0-100.0 [facility] Comment on above: Performed By: #### C BC #### [address] [address] Platelet 321 x10*3/mcL Normal 150-450 [facility] Comment on above: Performed By: #### C BC #### [address] [address] Platelet mean volume (Bld) [Entitic vol] 9.3 fL Normal 6.7-10.6 [facility] Comment on above: Performed By: #### C BC #### [address] [address] RBC 4.74 x10*6/mcL Normal 3.80-5.20 [facility] Comment on above: Performed By: #### C BC #### [address] [address] WBC 12.6 x10*3/mcL High 4.5-11.0 [facility] Comment on above: Performed By: #### C BC #### [address] [address] CMPon 04-20-2024 Albumin [Mass/Vol] 3.9 g/dL Normal 3.2-4.9 [facility] Comment on above: Performed By: #### C BC #### [address] [address] Albumin/Globulin [Mass ratio] 1.0 {ratio} Low 1.1-2.2 [facility] Comment on above: Performed By: #### C BC #### [address] [address] Alk Phos 92 IU/L High 32-91 [facility] Comment on above: Performed By: #### C BC #### [address] [address] ALT [Catalytic activity/Vol] 71 U/L High 14-54 [facility] Comment on above: Performed By: #### C BC #### [facility] [address] [place] [address], [place] [address] Anion gap [Moles/Vol] 9 mmol/L Normal 4-12 [facility] Comment on above: Performed By: #### C BC #### [address] [place] [address] AST [Catalytic activity/Vol] 81 U/L High 15-41 [facility] Comment on above: Performed By: #### C BC #### [address] [place] [address] Bili Total 0.6 mg/dL Normal 0.3-1.2 [facility] Comment on above: Performed By: #### C BC #### [address] [place] [address] Calcium [Mass/Vol] 9.2 mg/dL Normal 8.5-10.3 [facility] Comment on above: Performed By: #### C BC #### [facility] [address] [place] [address], [place] [address] Chloride [Moles/Vol] 102 mmol/L Normal 98-110 [facility] Comment on above: Performed By: #### C BC #### [address] [place] [address] CO2 [Moles/Vol] 23 mmol/L Normal 22-32 [facility] Comment on above: Performed By: #### C BC #### [address] [place] [address] Creatinine [Mass/Vol] 0.84 mg/dL Normal 0.44-1.03 [facility] Comment on above: Performed By: #### C BC #### [address] [place] [address] Glucose [Mass/Vol] 277 mg/dL High 70-99 [facility] Comment on above: Performed By: #### C BC #### [address] [address] Potassium [Moles/Vol] 3.6 mmol/L Normal 3.4-4.8 [facility] Comment on above: Performed By: #### C BC #### [address] [address] Protein [Mass/Vol] 7.8 g/dL Normal 6.5-8.1 [facility] Comment on above: Performed By: #### C BC #### [address] [address] Sodium [Moles/Vol] 134 mmol/L Normal 133-142 [facility] Comment on above: Performed By: #### C BC #### [address] [address] Urea nitrogen [Mass/Vol] 12 mg/dL Normal 8-26 [facility] Comment on above: Performed By: #### C BC #### [address] [address] Urea nitrogen/Creatinine [Mass ratio] 14.3 mg/mg Normal 10.0-20.0 [facility] Comment on above: Performed By: #### C BC #### [address] [address] CRPon 04-20-2024 CRP 2.06 mg/dL High 0.00-0.75 [facility] Comment on above: Result Comment: CRP measurement is useful for assessment of non-specific INFLAMMATORY RESPONSE to infection or injury AND is a sensitive MARKER of ACUTE INFLAMMATION including CARDIAC RISK ASSESSMENT. CARDIAC patients with elevated CRP are POTENTIALLY at a HIGHER RISK OF FUTURE CARDIAC EVENTS. Performed By: #### C [id number] #### [address] [address] [address] Abdomen Pelvis w/ IV Cont raston [...] volume formed colonic stool. Radiation Dose Estimate: CTDI(mGy):0.112004 / / / kVp:120.101120 / mAs:0.495538 / / / DLP(mGy-cm):4.437537Zk dy Part: Abdomen CTDI(mGy):48.061212 / / / kVp:140.469844 / mAs:209.094548 / / / DLP(mGy-cm):2645.71581 8Body Part: Abdomen Final Dictated by: Cr Gomez MD Dictated DT/TM: 04.20.2024 9:18 pm Signed by: Cr Gomez MD Signed (Electronic Signature): 04.20.2024 9:20 pm (If Report Is Signed, Electronically Signed in Other Vendor System) Normal [facility] Diff Autoon 04-20-2024 Baso Absolute 0.1 x10*3/mcL Normal 0.0-0.2 [facility] Comment on above: Performed By: #### C [id number] #### [address] [address] Basophils/100 WBC (Bld) 1.2 % Normal 0.0-1.5 [facility] Comment on above: Performed By: #### C [id number] #### [address] [address] Eos Absolute 0.1 x10*3/mcL Normal 0.0-0.4 [facility] Comment on above: Performed By: #### C [id number] #### [address] [address] Eosinophils/100 WBC (Bld) 0.9 % Normal 0.0-5.4 [facility] Comment on above: Performed By: #### C [id number] #### [address] [address] Lymph Absolute 4.0 x10*3/mcL Normal 1.0-4.8 [facility] Comment on above: Performed By: #### C [id number] #### [address] [address] Lymphocytes/100 WBC (Bld) 31.4 % Normal 27.2-40.8 [facility] Comment on above: Performed By: #### C [id number] #### [address] [address] [place] Absolute 0.4 x10*3/mcL Normal 0.1-1.1 [facility] Comment on above: Performed By: #### C D:[id number] #### [address] [address] Monocytes/100 WBC (Bld) 3.3 % Low 3.7-11.9 [facility] Comment on above: Performed By: #### C D:[id number] #### [address] [address] Neutro Absolute 7.9 x10*3/mcL High 1.8-7.7 [facility] Comment on above: Performed By: #### C [id number] #### [address] [address] Neutro Auto 63.2 % Normal 47.2-70.8 [facility] Comment on above: Performed By: #### C [id number] #### [address] [address] ED Clinical Summaryon 2023 ED Clinical Summary [address] [address] ED Clinical Summary Person Information Name: Gael Ruby/[facility]_Terence Age: 28 Years : 1995 Sex: Female PCP: Chantel GREWAL, Yossi Bustillo Marital Status: Phone: Race: White Ethnicity: Not or Language: [place] Visit Reason: Abdominal pain; abdominal pain Acuity: 3 Enc Type: Emergency Med Service: Emergency Medicine Arrival: 04/20/2024 17:35:29 Discharge: 04/20/2024 22:10:00 LOS: 000 04:35 Checkin: 04/20/2024 17:35:29 Checkout: 04/20/2024 22:10:00 Dispo Type: Home or Self Care Address: [address] [place] [phone] Provider Notes: Diagnosis: 1:Abdominal pain; 2:Nausea vomiting [...] range between ( 27.2 and 40.8 ) [place] Auto: 3.3 % -- Normal range between [...] range between ( 36.0 and 46.0 ) [place] Absolute: 0.4 x10 MCH: 30.2 pg -- [...] This Visit Final Med List: New Medications [facility] [id number], [address] [place], [place] [id number], [phone] scopolamine (Transderm-Scop 1 mg/72 hr transdermal film, extended release) 1 Patches Transdermal (apply on the skin) every 72 hours as needed nausea/vomiting. apply to skin. Refills: 0. Last Dose: ___ Medications That Were Updated - Follow Current Instructions (more content not included)... Normal [facility] ED Note-Physicianon 04-20-20 ED Note-Physician Chief Complaint [...] in this document, created by the medical economics consultant for me, accurately reflects the services I [...] _ ? NEXUS C-spine Criteria: _ ? [place] Ankle Rule: _ ? [place] Knee Rule: _ ? [place] Criteria for [...] the medicati (more content not included)... Normal [facility] Lipaseon 04-20-2024 Lipase Lvl 73 IU/L High 22-51 [facility] Comment on above: Performed By: #### L IP #### [address] [address] Magnesiumon 04-20-2024 Magnesium [Mass/Vol] 2.0 mg/dL Normal 1.7-2.4 [facility] Comment on above: Performed By: #### . Urinalysis Microscopic Auto #### [address] [address] UA w Culture if Indon 2023 Color (U) Light-Yellow Normal Yellow [facility] Comment on above: Performed By: #### U CI #### [address] [address] Ketones Ql (U) Negative Normal Negative [facility] Comment on above: Performed By: #### U CI #### [address] [address] UA Blood Negative Normal Negative [facility] Comment on above: Performed By: #### U CI #### [address] [address] UA Clarity Clear Normal Clear [facility] Comment on above: Performed By: #### U CI #### [address] [address] UA Glucose Normal Normal Negative [facility] Comment on above: Performed By: #### U CI #### [address] [address] UA Leukocyte Esterase Negative Normal Negative [facility] Comment on above: Performed By: #### U CI #### [address] [address] UA Nitrite Negative Normal Negative [facility] Comment on above: Performed By: #### U CI #### [address] [address] UA pH 6.5 Normal 4.5 - 7.8 [facility] Comment on above: Performed By: #### U CI #### [place] [id number] UA Protein 30 mg/dL Abnormal Negative [facility] Comment on above: Performed By: #### U CI #### [address] [address] UA Source Clean Catch Normal [facility] Comment on above: Performed By: #### U CI #### [address] [address] UA Spec Grav OVER Normal 1.003-1.035 [facility] Comment on above: Performed By: #### U CI #### [address] [address] UA Urobilinogen Normal Normal 0.2 - 1.0 [facility] Comment on above: Performed By: #### U CI #### [address] [address] Urobilinogen (U) [Mass/Vol] Negative Normal Negative [facility] Comment on above: Performed By: #### U CI #### [place] [id number] ED Note-Physicianon 03-31-20 ED Note-Physician Chief Complaint [...] _ ? NEXUS C-spine Criteria: _ ? [place] Ankle Rule: _ ? [place] Knee Rule: _ ? [place] Criteria for [...] Ovarian cyst Procedure/Surgical History Dilation and curettage [place] Tooth extraction (2009) Oopherectomy (06/2010) Tonsillectomy and [...] needed fo (more content not included)... Normal [facility] Neurosurgery Office/Clinic N julioon 03-19-2024 Neurosurgery Office/Clinic Note Chief Complaint Patient is being seen for back consult. History of Present Illness This is a pleasant 28 year old female seen in referral at the request of [facility] ED for lumbar disc protrusion. She was [...] PCP Dr. Santos, surgery Conservative treatments: Tizanidine, [place], gabapentin, physical therapy at [facility], Percocet, lidocaine patch, previous injections with pain management at [facility] Medical history: as listed, includes diabetes, asthma, [...] low back (more content not included)... Normal [facility] Provider Letteron 03-19-2024 Provider Letter Yossi Golden MD [address] [place] [address] Re: Gael Ruby Date of Visit: 03/19/2024 Dear Yossi Golden MD, Thank you for allowing me to contribute to the care of your patient: Gael Ruby Attached is my office note where you will find my assessment and recommendations from our encounter. My office?s contact information: [facility] [address] [place] [address], [phone] Let me know if you have any questions or concerns. Sincerely, LUZ Muhammad Providers: The following document(s) were included in the letter: March 19, 2024 12:38:32 EDT - (03/19/2024) Neurosurgery Office Visit Note Normal [facility] ED Clinical Summaryon 2023 ED Clinical Summary [address] [address] ED Clinical Summary [facility] Age: 28 Years : 1995 Sex: Female PCP: Chantel GREWAL, Yossi Bustillo Marital Status: Phone: Race: White Ethnicity: Not or Language: [place] Visit Reason: Back pain; Back Pain Acuity: 3 Enc Type: Emergency Med Service: Emergency Medicine Arrival: 03/15/2024 02:14:36 Discharge: 03/15/2024 05:06:00 LOS: 000 02:52 Checkin: 03/15/2024 02:14:36 Checkout: 03/15/2024 05:06:00 Dispo Type: Home or Self Care Address: [address] [place] [phone] Provider Notes: Diagnosis: 1:Lumbar back pain with [...] Final Med List: New Medications [id number], [address], [place] [id number], [phone] oxyCODONE-acetaminophe n (Percocet 5 mg-325 mg oral tablet) 1 Tabs Oral (given by mouth) every 4 hours as needed as needed for pain for 3 Days. Refills: 0. Last Dose: ___ Medications That Were Updated - Follow Current Instructions [id number], [address], [place] [id number], [phone] Current ondansetron (Zofran ODT 4 mg oral [...] (at bedtime). Last Dose: ___ [id number], [address] [place], [place] [id number], [phone] ondansetron (Zofran ODT 4 mg oral tablet, [...] oral table (more content not included)... Normal [facility] ED Clinical Summaryon 2023 ED Clinical Summary [address] [address] ED Clinical Summary Person Information Name: Gael Ruby [place] Age: 28 Years : 1995 Sex: Female PCP: Chantel GREWAL, Yossi Bustillo Marital Status: Phone: Race: White Ethnicity: Not or Language: [place] Visit Reason: Incontinence; Pain in back; back pain Acuity: 3 Enc Type: Emergency Med Service: Emergency Medicine Arrival: 03/10/2024 19:03:42 Discharge: 03/11/2024 00:02:00 LOS: 000 04:59 Checkin: 03/10/2024 19:03:42 Checkout: 03/11/2024 00:02:00 Dispo Type: Home or Self Care Address: [address] [place] [phone] Provider Notes: History of Present Illness This [...] for her back.? She has had MRIs at?[facility] she states. Review of Systems Pertinent positive [...] range between ( 27.2 and 40.8 ) [place] Auto: 3.6 % -- Normal range between [...] range between ( 36.0 and 46.0 ) [place] Absolute: 0.3 x10 MCH: 30.6 pg -- [...] GFR: >60 (more content not included)... Normal [facility] .eGFRon 03-10-2024 GFR/1.73 sq M.predicted MDRD (S/P/Bld) [Vol rate/Area] mL/min/{1.73_m2} Normal >=60 [facility] Comment on above: Result Comment: [facility] have implemented the eGFR calculation [...] years Performed By: #### U CI #### [address] [address] CBC w/ Diffon 03-10-2024 Erythrocyte distribution width (RBC) [Ratio] 13.9 % Normal 11.6-14.8 [facility] Comment on above: Performed By: #### C [id number] #### [address] [address] Hematocrit (Bld) [Volume fraction] 40.1 % Normal 36.0-46.0 [facility] Comment on above: Performed By: #### C [id number] #### [address] [address] Hemoglobin (Bld) [Mass/Vol] 13.8 g/dL Normal 12.0-16.0 [facility] Comment on above: Performed By: #### C [id number] #### [address] [address] MCH (RBC) [Entitic mass] 30.6 pg Normal 27.0-35.0 [facility] Comment on above: Performed By: #### C [id number] #### [address] [address] MCHC 34.4 % Normal 31.0-37.0 [facility] Comment on above: Performed By: #### C [id number] #### [address] [address] MCV (RBC) [Entitic vol] 88.9 fL Normal 80.0-100.0 [facility] Comment on above: Performed By: #### C [id number] #### [address] [address] Platelet 284 x10*3/mcL Normal 150-450 [facility] Comment on above: Performed By: #### C [id number] #### [address] [address] Platelet mean volume (Bld) [Entitic vol] 9.0 fL Normal 6.7-10.6 [facility] Comment on above: Performed By: #### C [id number] #### [address] [address] RBC 4.51 x10*6/mcL Normal 3.80-5.20 [facility] Comment on above: Performed By: #### C [id number] #### [address] [address] WBC 9.5 x10*3/mcL Normal 4.5-11.0 [facility] Comment on above: Performed By: #### C [id number] #### [address] [address] CMPon 03-10-2024 Albumin [Mass/Vol] 3.9 g/dL Normal 3.2-4.9 [facility] Comment on above: Performed By: #### C BC #### [address] [address] Albumin/Globulin [Mass ratio] 0.9 {ratio} Low 1.1-2.2 [facility] Comment on above: Performed By: #### C BC #### [address] [address] Alk Phos 100 IU/L High 32-91 [facility] Comment on above: Performed By: #### C BC #### [address] [address] ALT [Catalytic activity/Vol] 68 U/L High 14-54 [facility] Comment on above: Performed By: #### C BC #### [address] [address] Anion gap [Moles/Vol] 13 mmol/L High 4-12 [facility] Comment on above: Performed By: #### C BC #### [facility] [address] [place] [address], [place] [address] AST [Catalytic activity/Vol] 82 U/L High 15-41 [facility] Comment on above: Performed By: #### C BC #### [address] [place] [address] Bili Total 0.5 mg/dL Normal 0.3-1.2 [facility] Comment on above: Performed By: #### C BC #### [address] [place] [address] Calcium [Mass/Vol] 9.2 mg/dL Normal 8.5-10.3 [facility] Comment on above: Performed By: #### C BC #### [address] [place] [address] Chloride [Moles/Vol] 97 mmol/L Low 98-110 [facility] Comment on above: Performed By: #### C BC #### [address] [place] [address] CO2 [Moles/Vol] 23 mmol/L Normal 22-32 [facility] Comment on above: Performed By: #### C BC #### [address] [place] [address] Creatinine [Mass/Vol] 0.69 mg/dL Normal 0.44-1.03 [facility] Comment on above: Performed By: #### C BC #### [address] [place] [address] Glucose [Mass/Vol] 353 mg/dL High 70-99 [facility] Comment on above: Performed By: #### C BC #### [address] [place] [address] Potassium [Moles/Vol] 4.3 mmol/L Normal 3.4-4.8 [facility] Comment on above: Performed By: #### C BC #### [address] [address] Protein [Mass/Vol] 8.1 g/dL Normal 6.5-8.1 [facility] Comment on above: Performed By: #### C BC #### [address] [address] Sodium [Moles/Vol] 133 mmol/L Normal 133-142 [facility] Comment on above: Performed By: #### C BC #### [address] [address] Urea nitrogen [Mass/Vol] 10 mg/dL Normal 8-26 [facility] Comment on above: Performed By: #### C BC #### [address] [address] Urea nitrogen/Creatinine [Mass ratio] 14.5 mg/mg Normal 10.0-20.0 [facility] Comment on above: Performed By: #### C BC #### [address] [address] CRPon 03-10-2024 CRP 3.28 mg/dL High 0.00-0.75 [facility] Comment on above: Result Comment: CRP measurement is useful for assessment of non-specific INFLAMMATORY RESPONSE to infection or injury AND is a sensitive MARKER of ACUTE INFLAMMATION including CARDIAC RISK ASSESSMENT. CARDIAC patients with elevated CRP are POTENTIALLY at a HIGHER RISK OF FUTURE CARDIAC EVENTS. Performed By: #### U CI #### [address] [address] Diff Autoon 03-10-2024 Baso Absolute 0.2 x10*3/mcL Normal 0.0-0.2 [facility] Comment on above: Performed By: #### C [id number] #### [address] [address] Basophils/100 WBC (Bld) 2.0 % High 0.0-1.5 [facility] Comment on above: Performed By: #### C [id number] #### [address] [address] Eos Absolute 0.1 x10*3/mcL Normal 0.0-0.4 [facility] Comment on above: Performed By: #### C [id number] #### [address] [address] Eosinophils/100 WBC (Bld) 1.2 % Normal 0.0-5.4 [facility] Comment on above: Performed By: #### C [id number] #### [address] [address] Lymph Absolute 3.8 x10*3/mcL Normal 1.0-4.8 [facility] Comment on above: Performed By: #### C D:[id number] #### [address] [address] Lymphocytes/100 WBC (Bld) 40.0 % Normal 27.2-40.8 [facility] Comment on above: Performed By: #### C [id number] #### [address] [address] [place] Absolute 0.3 x10*3/mcL Normal 0.1-1.1 [facility] Comment on above: Performed By: #### C [id number] #### [address] [address] Monocytes/100 WBC (Bld) 3.6 % Low 3.7-11.9 [facility] Comment on above: Performed By: #### C D:[id number] #### [address] [address] Neutro Absolute 5.0 x10*3/mcL Normal 1.8-7.7 [facility] Comment on above: Performed By: #### C [id number] #### [address] [address] Neutro Auto 53.2 % Normal 47.2-70.8 [facility] Comment on above: Performed By: #### C D:[id number] #### [facility] [address] [place] [address] ED Note-Physicianon 03-10-20 ED Note-Physician Chief Complaint [...] her back. She has had MRIs at [facility] she states. Review of Systems Pertinent positive [...] from someone other than the patient: Reviewed [employer] EMR to see if recent visits or [...] and inves (more content not included)... Normal [facility] MRI Spine Lumbar w/o Fan ton 03-10-2024 MRI Spine Lumbar w/o Contrast [...] Electronically Signed in Other Vendor System) Normal [facility] Surgery Office/Clinic Noteon 02-26-2024 Surgery Office/Clinic Note [...] tabs, 0 Refill(s), 02/22/24 9:35:00 EDT, Pharmacy: [facility] #[id number] [1] Review of Systems A complete 12 [...] tabs, 0 Refill(s), 03/07/24 14:07:00 EDT, Pharmacy: [facility] #[id number] -- Portions of this chart may have [...] Ovarian cyst Procedure/Surgical History Dilation and curettage [place] Tooth extraction (2009) Oopherectomy (06/2010) Tonsillectomy and [...] PRN h (more content not included)... Normal [facility] Surgery Office/Clinic Noteon 02-12-2024 Surgery Office/Clinic Note [...] tabs, 0 Refill(s), 02/22/24 9:35:00 EDT, Pharmacy: [facility] #[id number] Medical Decision Making Chronic conditions NOT treated [...] Ovarian cyst Procedure/Surgical History Dilation and curettage [place] Tooth extraction (2009) Oopherectomy (06/2010) Tonsillectomy and [...] (Rash) Pyr (more content not included)... Normal [facility] C Woundon 02-10-2024 C Wound -- - [...] <=10 V Vancomycin S <=0.5 V Normal [facility] Comment on above: Performed By: #### C D:[id number] #### [address] [address] ED Note-Nursingon 02-10-2024 ED Note-Nursing wound culture result s reviewed by Dr. Mondragon/ no further orders at this time Electronically signed by Adela Yoder 02/10/24 07:50 EDT Normal [facility] ED Clinical Summaryon 2023 ED Clinical Summary [address] [address] ED Clinical Summary Person Information Name: Gael Ruby Michelle Mckeon/[facility] Age: 28 Years : 1995 Sex: Female PCP: Marital Status: Phone: Race: White Ethnicity: Not or Language: [place] Visit Reason: Abscess; Abscess Acuity: 4 Enc Type: Emergency Med Service: Emergency Medicine Arrival: 02/07/2024 18:20:02 Discharge: 02/07/2024 19:40:00 LOS: 000 01:20 Checkin: 02/07/2024 18:20:02 Checkout: 02/07/2024 19:40:00 Dispo Type: Home or Self Care Address: [address] [place] [phone] Provider Notes: Diagnosis: 1:Abscess of abdominal wall [...] Final Med List: New Medications [id number], [address], [place] [id number], [phone] doxycycline (doxycycline hyclate 100 mg oral capsule) [...] muscle spasms. Last Dose: ___ [facility] #[id number], [address], [place] [id number], [phone] doxycycline (doxycycline hyclate 100 mg oral capsule) [...] tiZANidine (tiZANi (more content not included)... Normal [facility] ED Note-Physicianon 02-07-20 ED Note-Physician Chief Complaint [...] caps, 0 Refill(s), 02/17/24 19:12:00 EDT, Pharmacy: [facility] #[id number] doxycycline, 100 mg, Oral, Tab, Once, First Dose: 02/07/24 19:11:00 EDT, Stop Date: 02/07/24 19:11:00 EDT, STAT, Dispense From Location: [facility], Skin and Soft Tissue, 02/07/24 [...] mg sublingual (more content not included)... Normal [facility] Basic Metabolic Panelon 05-0 Anion gap [Moles/Vol] 14 mmol/L 9 - 17 mmol/L [facility] Calcium [Mass/Vol] 9.3 mg/dL 8.6 - 10. 4 mg/dL [facility] Chloride [Moles/Vol] 98 mmol/L 98 - 10 7 mmol/L [facility] CO2 [Moles/Vol] 23 mmol/L 20 - 31 mmol/L [facility] Creatinine [Mass/Vol] 0.6 mg/dL 0.5 - 0.9 mg/dL [facility] EstAmarilis Rate - PINF [facility] Comment on above: These results are [...] 360 mg/dL High 70 - 99 mg/dL [facility] Interpretation and review of laboratory results Abnormal [facility] Potassium [Moles/Vol] 4.2 mmol/L 3.7 - 5.3 mmol/L [facility] Sodium [Moles/Vol] 135 mmol/L 135 - 144 mmol/L [facility] Urea nitrogen [Mass/Vol] 10 mg/dL 6 - 20 mg/dL [facility] Urea nitrogen/Creatinine [Mass ratio] 17 mg/mg 9 - 20 [facility] CBC with Auto Differentialon 01-30-2024 Basophils (Bld) [#/Vol] 0.05 10*3/uL [facility] Basophils/100 WBC (Bld) 1 % 0 - 2 % [facility] Eosinophils (Bld) [#/Vol] 0.09 10*3/uL [facility] Eosinophils/100 WBC (Bld) 1 % 1 - 4 % [facility] Erythrocyte distribution width (RBC) [Ratio] 12.9 % 11.8 - 14.4 % [facility] Hematocrit (Bld) [Volume fraction] 44.1 % 36.3 - 47.1 % [facility] Hemoglobin (Bld) [Mass/Vol] 15.1 g/dL 11.9 - 15.1 g/dL [facility] Immature granulocytes (Bld) [#/Vol] 0.05 10*3/uL [facility] Immature granulocytes/100 WBC (Bld) 1 % High 0 [facility] Interpretation and review of laboratory results Abnormal [facility] Lymphocytes/100 WBC (Bld) 34 % 24 - 43 % [facility] Lymphocytes/100 WBC (Bld) 3.43 % [facility] MCH (RBC) [Entitic mass] 30.8 pg 25.2 - 33.5 pg [facility] MCHC (RBC) [Mass/Vol] 34.2 g/dL 28.4 - 34.8 g/dL [facility] MCV (RBC) [Entitic vol] 90.0 fL 82.6 - 102.9 fL [facility] Monocytes/100 WBC (Bld) 4 % 3 - 12 % [facility] Monocytes/100 WBC (Bld) 0.45 % [facility] Neutrophils/100 WBC (Bld) 59 % 36 - 65 % [facility] Nucleated RBC/100 WBC (Bld) [Ratio] 0.0 % 0.0 per 100 WBC [facility] Platelet mean volume (Bld) [Entitic vol] 11.2 fL 8.1 - 13.5 fL [facility] Platelets (Bld) [#/Vol] 326 10*3/uL [facility] RBC (Bld) [#/Vol] 4.90 10*6/uL 3.95 - 5.1 1 m/uL [facility] Segmented neutrophils/100 WBC (Bld) 6.06 % [facility] WBC other (Bld) [#/Vol] 10.[address] [facility] CT CHEST PULMONARY EMBOLISM W CONTRASTon 01-30-2024 No evidence of pulmonary embolism or acute pulmonary abnormality. [facility] CONSOLIDATED EXAMINATION: CTA OF THE CHEST 01/30/2024 [...] No acute bone or soft tissue abnormality. [facility] Kimani Esparza MD - 01/30/2024 EXAMINATION: CTA OF THE [...] of pulmonary embolism or acute pulmonary abnormality. [facility] Radiology Study observation (narrative) [facility] CT CHEST PULMONARY EMBOLISM W CONTRASTOrdered By: Kimani Conway on 01-30-2024 [facility] Work Phone: Troponinon 01-30-2024 Troponin I.cardiac High sensitivity method [Mass/Vol] ng/L 0 - 14 ng/L [facility] Comment on above: High Sensitivity Tro ponin values cannot be compared with other Troponin methodologies. [facility] BMPon 01-04-2024 Anion gap [Moles/Vol] 12 mmol/L 9 - 17 mmol/L [facility] Calcium [Mass/Vol] 9.5 mg/dL 8.6 - 10. 4 mg/dL [facility] Chloride [Moles/Vol] 101 mmol/L 98 - 10 7 mmol/L [facility] CO2 [Moles/Vol] 23 mmol/L 20 - 31 mmol/L [facility] Creatinine [Mass/Vol] 0.6 mg/dL 0.5 - 0.9 mg/dL [facility] GFR/1.73 sq M.predicted MDRD (S/P/Bld) [Vol rate/Area] - PINF [facility] Comment on above: These results are [...] 201 mg/dL High 70 - 99 mg/dL [facility] Interpretation and review of laboratory results Abnormal [facility] Potassium [Moles/Vol] 4.0 mmol/L 3.7 - 5.3 mmol/L [facility] Sodium [Moles/Vol] 136 mmol/L 135 - 144 mmol/L [facility] Urea nitrogen [Mass/Vol] 6 mg/dL 6 - 20 mg/dL [facility] Urea nitrogen/Creatinine [Mass ratio] 10 mg/mg 9 - 20 [facility] CBC with Auto Differentialon 01-04-2024 Basophils (Bld) [#/Vol] 0.04 10*3/uL [facility] Basophils/100 WBC (Bld) 0 % 0 - 2 % [facility] Eosinophils (Bld) [#/Vol] 0.07 10*3/uL [facility] Eosinophils/100 WBC (Bld) 1 % 1 - 4 % [facility] Erythrocyte distribution width (RBC) [Ratio] 12.8 % 11.8 - 14.4 % [facility] Hematocrit (Bld) [Volume fraction] 41.9 % 36.3 - 47.1 % [facility] Hemoglobin (Bld) [Mass/Vol] 14.3 g/dL 11.9 - 15.1 g/dL [facility] Immature granulocytes (Bld) [#/Vol] 0.04 10*3/uL [facility] Immature granulocytes/100 WBC (Bld) 0 % 0 [facility] Interpretation and review of laboratory results Abnormal [facility] Lymphocytes/100 WBC (Bld) 28 % 24 - 43 % [facility] Lymphocytes/100 WBC (Bld) 3.31 % [facility] MCH (RBC) [Entitic mass] 30.5 pg 25.2 - 33.5 pg [facility] MCHC (RBC) [Mass/Vol] 34.1 g/dL 28.4 - 34.8 g/dL [facility] MCV (RBC) [Entitic vol] 89.3 fL 82.6 - 102.9 fL [facility] Monocytes/100 WBC (Bld) 5 % 3 - 12 % [facility] Monocytes/100 WBC (Bld) 0.61 % [facility] Neutrophils/100 WBC (Bld) 66 % High 36 - 65 % [facility] Nucleated RBC/100 WBC (Bld) [Ratio] 0.0 % 0.0 per 100 WBC [facility] Platelet mean volume (Bld) [Entitic vol] 10.8 fL 8.1 - 13.5 fL [facility] Platelets (Bld) [#/Vol] 320 10*3/uL [facility] RBC (Bld) [#/Vol] 4.69 10*6/uL 3.95 - 5.1 1 m/uL [facility] Segmented neutrophils/100 WBC (Bld) 7.85 % [facility] WBC other (Bld) [#/Vol] 11.9 High [facility] COVID-19, Rapidon 01-04-2024 SARS-CoV-2 (COVID-19) RdRp gene ABRAHAM+probe Ql (Resp) Not detected Not Detected [facility] Comment on above: Rapid NAAT: The [...] management decisions. Fact sheet for Healthcare Providers: https://www.fda.gov/media/347931/download Fact sheet for Patients: https://www.fda.gov/media/406520/download Methodology: Isothermal Nucleic Acid Amplification Specimen Description .NASOPHARYNGEAL SWAB [facility] Rapid influenza A/B antigens on 01-04-2024 FLUAV Ag Ql (Unsp spec) Negative NEGATIVE [facility] Comment on above: for Influenza A Anti gen FLUBV Ag Ql (Unsp spec) Negative NEGATIVE [facility] Comment on above: for Influenza B Anti gen. [facility] CBC with Auto Differentialon 11-23-2023 Basophils (Bld) [#/Vol] 0.06 10*3/uL [facility] Basophils/100 WBC (Bld) 1 % 0 - 2 % [facility] Eosinophils (Bld) [#/Vol] 0.13 10*3/uL [facility] Eosinophils/100 WBC (Bld) 1 % 1 - 4 % [facility] Erythrocyte distribution width (RBC) [Ratio] 12.5 % 11.8 - 14.4 % [facility] Hematocrit (Bld) [Volume fraction] 45.2 % 36.3 - 47.1 % [facility] Hemoglobin (Bld) [Mass/Vol] 15.2 g/dL High 11.9 - 15.1 g/dL [facility] Immature granulocytes (Bld) [#/Vol] 0.04 10*3/uL [facility] Immature granulocytes/100 WBC (Bld) 0 % 0 [facility] Interpretation and review of laboratory results Abnormal [facility] Lymphocytes/100 WBC (Bld) 37 % 24 - 43 % [facility] Lymphocytes/100 WBC (Bld) 3.97 % High [facility] MCH (RBC) [Entitic mass] 30.2 pg 25.2 - 33.5 pg [facility] MCHC (RBC) [Mass/Vol] 33.6 g/dL 28.4 - 34.8 g/dL [facility] MCV (RBC) [Entitic vol] 89.9 fL 82.6 - 102.9 fL [facility] Monocytes/100 WBC (Bld) 5 % 3 - 12 % [facility] Monocytes/100 WBC (Bld) 0.54 % [facility] Neutrophils/100 WBC (Bld) 56 % 36 - 65 % [facility] Nucleated RBC/100 WBC (Bld) [Ratio] 0.0 % 0.0 per 100 WBC [facility] Platelet mean volume (Bld) [Entitic vol] 10.7 fL 8.1 - 13.5 fL [facility] Platelets (Bld) [#/Vol] 328 10*3/uL [facility] RBC (Bld) [#/Vol] 5.03 10*6/uL 3.95 - 5.1 1 m/uL [facility] Segmented neutrophils/100 WBC (Bld) 6.12 % [facility] WBC other (Bld) [#/Vol] 10.9 [facility] CMPon 11-23-2023 Albumin [Mass/Vol] 4.3 g/dL 3.5 - 5.2 g/dL [facility] Albumin/Globulin [Mass ratio] 1.3 {ratio} 1.0 - 2.5 [facility] ALP [Catalytic activity/Vol] 113 U/L High 35 - 104 U/L [facility] ALT [Catalytic activity/Vol] 69 U/L High 5 - 33 U/L [facility] Anion gap [Moles/Vol] 12 mmol/L 9 - 17 mmol/L [facility] AST [Catalytic activity/Vol] 81 U/L High NINF - 32 U/L [facility] Bilirubin [Mass/Vol] 0.3 mg/dL 0.3 - 1 .2 mg/dL [facility] Calcium [Mass/Vol] 9.5 mg/dL 8.6 - 10. 4 mg/dL [facility] Chloride [Moles/Vol] 98 mmol/L 98 - 10 7 mmol/L [facility] CO2 [Moles/Vol] 24 mmol/L 20 - 31 mmol/L [facility] Creatinine [Mass/Vol] 0.7 mg/dL 0.5 - 0.9 mg/dL [facility] GFR/1.73 sq M.predicted MDRD (S/P/Bld) [Vol rate/Area] [facility] Comment on above: These results [...] 175 mg/dL High 70 - 99 mg/dL [facility] Potassium [Moles/Vol] 3.9 mmol/L 3.7 - 5.3 mmol/L [facility] Protein [Mass/Vol] 7.5 g/dL 6.4 - 8.3 g/dL [facility] Sodium [Moles/Vol] 134 mmol/L Low 135 - 144 mmol/L [facility] Urea nitrogen [Mass/Vol] 9 mg/dL 6 - 20 mg/dL [facility] Urea nitrogen/Creatinine [Mass ratio] 13 mg/mg 9 - [address] [facility] [address] Abdomen and Pelvis W chuck perry Maurilio 11-23-2023 Hepatomegaly with steatosis. No acute abnormality identified. [facility] CONSOLIDATED EXAMINATION: CT OF THE ABDOMEN AND [...] findings do not require dedicated imaging follow-up. [facility] Ronaldo Marinelli MD - 11/23/2023 EXAMINATION: [...] Hepatomegaly with steatosis. No acute abnormality identified. [facility] Radiology Study observation (narrative) [facility] CT Abdomen and Pelvis W cont rast IVOrdered By: Ronaldo Marinelli on 11-23-2023 [facility] Work Phone: Lipaseon 11-23-2023 Lipase [Catalytic activity/Vol] 79 U/L High 13 - 60 U/L [facility] No Panel Informationon 11-22 Interpretation and review of laboratory results Abnormal [facility] Urinalysis with Microscopico n 11-23-2023 Bacteria LM Ql (Urine sed) TRACE Abnormal None [facility] Bilirubin Ql (U) Negative NEGATIVE [facility] Clarity (U) Clear Clear [facility] Color (U) Yellow Yellow [facility] Epithelial cells LM.HPF (Urine sed) [#/Area] None [facility] Glucose Test strip (U) [Mass/Vol] Negative NEGATIVE mg/dL [facility] Hemoglobin Auto test strip Ql (U) Negative NEGATIVE [facility] Interpretation and review of laboratory results Abnormal [facility] Ketones (U) [Mass/Vol] Negative NEGAT SIMA mg/dL [facility] Leukocyte esterase Test strip Ql (U) Negative NEGATIVE [facility] Nitrite Ql (U) Negative NEGATIVE [facility] pH (U) 6.0 [pH] 5.0 - 9.0 [facility] Protein (U) [Mass/Vol] Negative NEGAT SIMA mg/dL [facility] RBC LM.HPF (Urine sed) [#/Area] None [facility] Specific gravity (U) [Rel density] 1.025 High 1.010 - 1.020 [facility] Urobilinogen Qn (U) Normal 0.0 - 1. 0 EU/dL [facility] WBC LM.HPF (Urine sed) [#/Area] None [facility] ED Clinical Summaryon 2023 ED Clinical Summary [facility] [address] [place] [address] ED Clinical Summary Person Information Name: Gael Ruby Josep/[facility] Age: 28 Years : 1995 Sex: Female PCP: Marital Status: Phone: Race: White Ethnicity: Not or Language: [place] Visit Reason: Abdominal pain; abd Acuity: 3 Enc Type: Emergency Med Service: Emergency Medicine Arrival: 11/13/2023 18:52:42 Discharge: 11/14/2023 00:52:00 LOS: 000 06:00 Checkin: 11/13/2023 18:52:42 Checkout: 11/14/2023 00:52:00 Dispo Type: Home or Self Care Address: [address] [place] [phone] Provider Notes: History of Present Illness 28-year-old [...] range between ( 27.2 and 40.8 ) Webster Auto: 5.1 % -- Normal range between [...] range between ( 36.0 and 46.0 ) [place] Absolute: 0.6 x10 MCH: 30.2 pg -- [...] range be (more content not included)... Normal [facility] .UA Microscp Aon 11-13-2023 UA Mucus Present Normal Absent [facility] Comment on above: Performed By: #### U CI #### [address] [address] UA RBC Quant 0 /HPF Normal 0-5 [facility] Comment on above: Performed By: #### U CI #### [address] [address] UA Squepi Cells Quant <1 Normal 0-29 [facility] Comment on above: Performed By: #### U CI #### [address] [address] UA WBC Quant 0 /HPF Normal 0-5 [facility] Comment on above: Performed By: #### U CI #### [address] [address] .eGFRon 11-13-2023 GFR/1.73 sq M.predicted MDRD (S/P/Bld) [Vol rate/Area] mL/min/{1.73_m2} Normal >=60 [facility] Comment on above: Result Comment: [facility] Laboratories have implemented the eGFR calculation [...] Age = years Performed By: #### C [id number] #### [address] [address] Basic Metabolic Profileon Anion gap [Moles/Vol] 14 mmol/L Normal 7-17 [facility] Comment on above: Performed By: #### U CI #### [address] [address] Calcium [Mass/Vol] 9.5 mg/dL Normal 8.5-10.3 [facility] Comment on above: Performed By: #### U CI #### [address] [address] Chloride [Moles/Vol] 104 mmol/L Normal 98-110 [facility] Comment on above: Performed By: #### U CI #### [address] [address] CO2 [Moles/Vol] 22 mmol/L Normal 22-32 [facility] Comment on above: Performed By: #### U CI #### [address] [address] Creatinine [Mass/Vol] 0.84 mg/dL Normal 0.44-1.03 [facility] Comment on above: Performed By: #### U CI #### [address] [address] Glucose [Mass/Vol] 156 mg/dL High 70-99 [facility] Comment on above: Performed By: #### U CI #### [address] [address] Potassium [Moles/Vol] 3.8 mmol/L Normal 3.4-4.8 [facility] Comment on above: Performed By: #### U CI #### [address] [address] Sodium [Moles/Vol] 136 mmol/L Normal 133-142 [facility] Comment on above: Performed By: #### U CI #### [address] [address] Urea nitrogen [Mass/Vol] 17 mg/dL Normal 8-26 [facility] Comment on above: Performed By: #### U CI #### [address] [address] Urea nitrogen/Creatinine [Mass ratio] 20.2 mg/mg High 10.0-20.0 [facility] Comment on above: Performed By: #### U CI #### [address] [address] CBC w/ Diffon 11-13-2023 Erythrocyte distribution width (RBC) [Ratio] 13.5 % Normal 11.6-14.8 [facility] Comment on above: Performed By: #### C BC #### [address] [address] Hematocrit (Bld) [Volume fraction] 42.6 % Normal 36.0-46.0 [facility] Comment on above: Performed By: #### C BC #### [address] [address] Hemoglobin (Bld) [Mass/Vol] 14.7 g/dL Normal 12.0-16.0 [facility] Comment on above: Performed By: #### C BC #### [address] [address] MCH (RBC) [Entitic mass] 30.2 pg Normal 27.0-35.0 [facility] Comment on above: Performed By: #### C BC #### [address] [address] MCHC 34.5 % Normal 31.0-37.0 [facility] Comment on above: Performed By: #### C BC #### [address] [address] MCV (RBC) [Entitic vol] 87.7 fL Normal 80.0-100.0 [facility] Comment on above: Performed By: #### C BC #### [address] [address] Platelet 289 x10*3/mcL Normal 150-450 [facility] Comment on above: Performed By: #### C BC #### [address] [address] Platelet mean volume (Bld) [Entitic vol] 8.9 fL Normal 6.7-10.6 [facility] Comment on above: Performed By: #### C BC #### [address] [place] [address] RBC 4.86 x10*6/mcL Normal 3.80-5.20 [facility] Comment on above: Performed By: #### C BC #### [facility] [address] [place] [address] WBC 11.8 x10*3/mcL High 4.5-11.0 [facility] Comment on above: Performed By: #### C BC #### [facility] [address] [place] [address] CT Abdomen Pelvis w/ IV Cont [facility] 11-13-2023 CT Abdomen Pelvis w/ IV Contrast [...] statistically represents a cyst. Radiation Dose Estimate: CTDI(mGy):0.184504 / / / kVp:120.101297 / mAs:0.327057 / / / DLP(mGy-cm):4.693802Ge dy Part: Abdomen CTDI(mGy):38.783965 / / / kVp:140.449261 / mAs:180.732454 / / / DLP(mGy-cm):2189.62879 0Body Part: Abdomen Final Dictated by: Keaton Richmond MD Dictated DT/TM: 11.13.2023 10:19 pm Signed by: Keaton Richmond MD Signed (Electronic Signature): 11.13.2023 10:26 pm (If Report Is Signed, Electronically Signed in Other Vendor System) Normal [facility] Diff Autoon 11-13-2023 Baso Absolute 0.0 x10*3/mcL Normal 0.0-0.2 [facility] Comment on above: Performed By: #### U CI #### [address] [address] Basophils/100 WBC (Bld) 0.3 % Normal 0.0-1.5 [facility] Comment on above: Performed By: #### U CI #### [address] [address] Eos Absolute 0.2 x10*3/mcL Normal 0.0-0.4 [facility] Comment on above: Performed By: #### U CI #### [address] [address] Eosinophils/100 WBC (Bld) 1.3 % Normal 0.0-5.4 [facility] Comment on above: Performed By: #### U CI #### [address] [address] Lymph Absolute 4.6 x10*3/mcL Normal 1.0-4.8 [facility] Comment on above: Performed By: #### U CI #### [address] [address] Lymphocytes/100 WBC (Bld) 38.8 % Normal 27.2-40.8 [facility] Comment on above: Performed By: #### U CI #### [address] [address] Webster Absolute 0.6 x10*3/mcL Normal 0.1-1.1 [facility] Comment on above: Performed By: #### U CI #### [address] [address] Monocytes/100 WBC (Bld) 5.1 % Normal 3.7-11.9 [facility] Comment on above: Performed By: #### U CI #### [address] [address] Neutro Absolute 6.4 x10*3/mcL Normal 1.8-7.7 [facility] Comment on above: Performed By: #### U CI #### [address] [address] Neutro Auto 54.5 % Normal 47.2-70.8 [facility] Comment on above: Performed By: #### U CI #### [address] [address] ED Note-Physicianon 11-13-19 ED Note-Physician Chief Complaint [...] 11/13/23 22:37:00 EST, STAT, Dispense From Location: [id number], Intra-abdominal, 11/13/23 22:37:00 EST famotidine, 20 mg, IV Push, Injection, Once, First Dose: 11/13/23 22:36:00 ES (more content not included)... Normal [facility] Hep Func Panelon 11-13-2023 Albumin [Mass/Vol] 4.2 g/dL Normal 3.2-4.9 [facility] [place] Comment on above: Performed By: #### U CI #### [facility] [address] [place] [address] Alk Phos 91 IU/L Normal 32-91 [facility] Comment on above: Performed By: #### U CI #### [address] [address] ALT [Catalytic activity/Vol] 62 U/L High 14-54 [facility] Comment on above: Performed By: #### U CI #### [address] [address] AST [Catalytic activity/Vol] 84 U/L High 15-41 [facility] Comment on above: Performed By: #### U CI #### [address] [address] Bili Direct 0.1 mg/dL Normal 0.1-0.5 [facility] Comment on above: Performed By: #### U CI #### [address] [address] Bili Indirect 0.7 mg/dL Normal 0.0-1.0 [facility] Comment on above: Performed By: #### U CI #### [address] [address] Bili Total 0.8 mg/dL Normal 0.3-1.2 [facility] Comment on above: Performed By: #### U CI #### [address] [address] Protein [Mass/Vol] 8.1 g/dL Normal 6.5-8.1 [facility] [facility] [place] Comment on above: Performed By: #### U CI #### [address] [address] Lipaseon 11-13-2023 Lipase Lvl 61 IU/L High 22-51 [facility] Comment on above: Performed By: #### L IP #### [address] [address] UA w Culture if Indon 2023 Color (U) Yellow Normal Yellow [facility] Comment on above: Performed By: #### . Urinalysis Microscopic Auto #### [place] [address] Ketones Ql (U) Negative Normal Negative [facility] Comment on above: Performed By: #### . Urinalysis Microscopic Auto #### [place] [id number] UA Blood Negative Normal Negative [facility] Comment on above: Performed By: #### . Urinalysis Microscopic Auto #### [place] [address] UA Clarity Clear Normal Clear [facility] Comment on above: Performed By: #### . Urinalysis Microscopic Auto #### [place] [address] UA Glucose Normal Normal Negative [facility] Comment on above: Performed By: #### . Urinalysis Microscopic Auto #### [place] [address] UA Leukocyte Esterase Negative Normal Negative [facility] Comment on above: Performed By: #### . Urinalysis Microscopic Auto #### [place] [address] UA Nitrite Negative Normal Negative [facility] Comment on above: Performed By: #### . Urinalysis Microscopic Auto #### [place] [address] UA pH 5.5 Normal 4.5 - 7.8 [facility] Comment on above: Performed By: #### . Urinalysis Microscopic Auto #### [place] [address] UA Protein 30 mg/dL Abnormal Negative [facility] Comment on above: Performed By: #### . Urinalysis Microscopic Auto #### [place] [address] UA Source Clean Catch Normal [facility] Comment on above: Performed By: #### . Urinalysis Microscopic Auto #### [place] [address] UA Spec Grav 1.029 Normal 1.003-1.035 [facility] Comment on above: Performed By: #### . Urinalysis Microscopic Auto #### [facility] [address] [place] [address] UA Urobilinogen Normal Normal 0.2 - 1.0 [facility] Comment on above: Performed By: #### . Urinalysis Microscopic Auto #### [facility] [address] [place] [address] Urobilinogen (U) [Mass/Vol] Negative Normal Negative [facility] Comment on above: Performed By: #### . Urinalysis Microscopic Auto #### [facility] [address] [place] [address] COVID-19, Rapidon 10-14-2023 SARS-CoV-2 (COVID-19) RdRp gene ABRAHAM+probe Ql (Resp) Not detected Not Detected [facility] Comment on above: Rapid NAAT: The [...] management decisions. Fact sheet for Healthcare Providers: https://www.fda.gov/media/700586/download Fact sheet for Patients: https://www.fda.gov/media/580004/download Methodology: Isothermal Nucleic Acid Amplification Specimen Description .NASOPHARYNGEAL SWAB [facility] Rapid influenza A/B antigens on 10-14-2023 FLUAV Ag Ql (Unsp spec) Positive Abnormal NEGATIVE [facility] Comment on above: for Influenza A Anti gen FLUBV Ag Ql (Unsp spec) Negative NEGATIVE [facility] Comment on above: for Influenza B Anti gen. Interpretation and review of laboratory results Abnormal [facility] CBC with Auto Differentialon 03-23-2023 Basophils (Bld) [#/Vol] 0.04 10*3/uL [facility] Basophils/100 WBC (Bld) 0 % 0 - 2 % [facility] Eosinophils (Bld) [#/Vol] 0.12 10*3/uL [facility] Eosinophils/100 WBC (Bld) 1 % 1 - 4 % [facility] Erythrocyte distribution width (RBC) [Ratio] 12.6 % 11.8 - 14.4 % [facility] Hematocrit (Bld) [Volume fraction] 43.9 % 36.3 - 47.1 % [facility] Hemoglobin (Bld) [Mass/Vol] 14.9 g/dL 11.9 - 15.1 g/dL [facility] Immature granulocytes (Bld) [#/Vol] 0.03 10*3/uL [facility] Immature granulocytes/100 WBC (Bld) 0 % 0 [facility] Interpretation and review of laboratory results Abnormal [facility] Lymphocytes/100 WBC (Bld) 37 % 24 - 43 % [facility] Lymphocytes/100 WBC (Bld) 3.77 % High [facility] MCH (RBC) [Entitic mass] 30.3 pg 25.2 - 33.5 pg [facility] MCHC (RBC) [Mass/Vol] 33.9 g/dL 28.4 - 34.8 g/dL [facility] MCV (RBC) [Entitic vol] 89.4 fL 82.6 - 102.9 fL [facility] Monocytes/100 WBC (Bld) 5 % 3 - 12 % [facility] Monocytes/100 WBC (Bld) 0.56 % [facility] Neutrophils/100 WBC (Bld) 57 % 36 - 65 % [facility] Nucleated RBC/100 WBC (Bld) [Ratio] 0.0 % 0.0 per 100 WBC [facility] Platelet mean volume (Bld) [Entitic vol] 10.2 fL 8.1 - 13.5 fL [facility] Platelets (Bld) [#/Vol] 315 10*3/uL [facility] RBC (Bld) [#/Vol] 4.91 10*6/uL 3.95 - 5.1 1 m/uL [facility] Segmented neutrophils/100 WBC (Bld) 5.82 % [facility] WBC other (Bld) [#/Vol] 10.[address] [facility] CT Head W/O Contraston 03-23 No acute intracrania l abnormality. [facility] EXAMINATION: CT OF THE HEAD WITHOUT [...] of the visualized skull or soft tissues. [facility] Ina Sheldon MD - 03/23/2023 EXAMINATION: [...] soft tissues. IMPRESSION: No acute intracranial abnormality. [facility] Radiology Study observation (narrative) [facility] CT Head W/O ContrastOrdered By: Ina Sheldon on 03-23-2023 [facility] Work Phone: Comprehensive Metabolic Pane mando 03-23-2023 Albumin [Mass/Vol] 4.5 g/dL 3.5 - 5.2 g/dL [facility] Albumin/Globulin [Mass ratio] 1.6 {ratio} 1.0 - 2.5 [facility] ALP [Catalytic activity/Vol] 94 U/L 35 - 104 U/L [facility] ALT [Catalytic activity/Vol] 58 U/L High 5 - 33 U/L [facility] Anion gap [Moles/Vol] 10 mmol/L 9 - 17 mmol/L [facility] AST [Catalytic activity/Vol] 40 U/L High NINF - 32 U/L [facility] Bilirubin [Mass/Vol] 0.4 mg/dL 0.3 - 1 .2 mg/dL [facility] Calcium [Mass/Vol] 9.7 mg/dL 8.6 - 10. 4 mg/dL [facility] Chloride [Moles/Vol] 104 mmol/L 98 - 10 7 mmol/L [facility] CO2 [Moles/Vol] 25 mmol/L 20 - 31 mmol/L [facility] Creatinine [Mass/Vol] 0.67 mg/dL 0.50 - 0.90 mg/dL [facility] GFR/1.73 sq M.predicted MDRD (S/P/Bld) [Vol rate/Area] - PINF [facility] Comment on above: These results are [...] 101 mg/dL High 70 - 99 mg/dL [facility] Interpretation and review of laboratory results Abnormal [facility] Potassium [Moles/Vol] 3.9 mmol/L 3.7 - 5.3 mmol/L [facility] Protein [Mass/Vol] 7.4 g/dL 6.4 - 8.3 g/dL [facility] Sodium [Moles/Vol] 139 mmol/L 135 - 144 mmol/L [facility] Urea nitrogen [Mass/Vol] 9 mg/dL 6 - 20 mg/dL [facility] Urea nitrogen/Creatinine [Mass ratio] 13 mg/mg 9 - 20 [facility] Troponinon 03-23-2023 Troponin I.cardiac High sensitivity method [Mass/Vol] ng/L 0 - 14 ng/L [facility] Comment on above: High Sensitivity Tro ponin values cannot be compared with other Troponin methodologies. [facility] CHEST PORTABLEon 03-23-20 23 No acute abnormality . [facility] EXAMINATION: ONE XRAY VIEW OF THE CHEST 03/23/2023 6:26 pm COMPARISON: None. HISTORY: ORDERING SYSTEM PROVIDED HISTORY: syncope FINDINGS: Heart size is normal. No focal consolidation in the lungs. No pleural effusion or pneumothorax. [facility] Jayda Castano MD - 03/23/2023 EXAMINATION: ONE XRAY VIEW OF THE CHEST 03/23/2023 6:26 pm COMPARISON: None. HISTORY: ORDERING SYSTEM PROVIDED HISTORY: syncope FINDINGS: Heart size is normal. No focal consolidation in the lungs. No pleural effusion or pneumothorax. IMPRESSION: No acute abnormality. [facility] Radiology Study observation (narrative) [facility] [employer] XR CHEST PORTABLEOrdered By: Jayda Castano on 03-23-2023 [facility] Work Phone: Beta-Hydroxybutyrateon 02-18 Beta hydroxybutyrate [Mass/Vol] 0.13 mmol/L 0.02 - 0.27 mmol/L [facility] Blood gas, venouson 02-19-20 HCO3 (Bld) [Moles/Vol] 22.1 mmol/L Low 24.0 - 30.0 mmol/L [facility] Interpretation and review of laboratory results Abnormal [facility] Negative Base Excess, Cain 2.6 mmol/L High 0.0 - 2.0 mmol/L [facility] Oxygen saturation in Blood 95.7 % High 60.0 - 85.0 % [facility] pCO2, Cain 38.3 Low [facility] pH, Cain 7.379 7.32 - 7.42 [facility] pO2, Cain 80.4 High [facility] Pt Temp 37.0 [facility] CBC with Auto Differentialon 02-18-2023 Basophils (Bld) [#/Vol] 0.06 10*3/uL [facility] Basophils/100 WBC (Bld) 0 % 0 - 2 % [facility] Eosinophils (Bld) [#/Vol] 0.06 10*3/uL [facility] Eosinophils/100 WBC (Bld) 0 % Low 1 - 4 % [facility] Erythrocyte distribution width (RBC) [Ratio] 12.6 % 11.8 - 14.4 % [facility] Hematocrit (Bld) [Volume fraction] 43.0 % 36.3 - 47.1 % [facility] Hemoglobin (Bld) [Mass/Vol] 14.6 g/dL 11.9 - 15.1 g/dL [facility] Immature granulocytes (Bld) [#/Vol] 0.09 10*3/uL [facility] Immature granulocytes/100 WBC (Bld) 1 % High 0 [facility] Interpretation and review of laboratory results Abnormal [facility] Lymphocytes/100 WBC (Bld) 22 % Low 24 - 43 % [facility] Lymphocytes/100 WBC (Bld) 3.88 % High [facility] MCH (RBC) [Entitic mass] 30.3 pg 25.2 - 33.5 pg [facility] MCHC (RBC) [Mass/Vol] 34.0 g/dL 28.4 - 34.8 g/dL [facility] MCV (RBC) [Entitic vol] 89.2 fL 82.6 - 102.9 fL [facility] Monocytes/100 WBC (Bld) 6 % 3 - 12 % [facility] Monocytes/100 WBC (Bld) 1.03 % [facility] Neutrophils/100 WBC (Bld) 71 % High 36 - 65 % [facility] NRBC Automated 0.0 0.0 per 100 WBC [facility] Platelet mean volume (Bld) [Entitic vol] 10.4 fL 8.1 - 13.5 fL [facility] Platelets (Bld) [#/Vol] 338 10*3/uL [facility] RBC (Bld) [#/Vol] 4.82 10*6/uL 3.95 - 5.1 1 m/uL [facility] Segmented neutrophils/100 WBC (Bld) 12.96 % High [facility] WBC other (Bld) [#/Vol] 18.[address] [facility] CT ABDOMEN PELVIS W IV CONTR AST Additional Contrast? Noneon 02-18-2023 1. Few nondilated fluid-filled loops of small and large bowel this likely represents an enteritis. 2. No CT evidence for appendicitis. [facility] RIS CONSOLIDATED EXAMINATION: CT OF THE ABDOMEN [...] Tissues: No acute bony abnormalities are noted. [facility] Patrick Ceja MD - 02/18/2023 [...] HISTORY: RLQ abd pain TECHNOLOGIST PROVIDED HISTORY: RL abd [...] enteritis. 2. No CT evidence for appendicitis. [employer] Work Phone: Radiology Study observation (narrative) [employer] Phone: CT ABDOMEN PELVIS W IV CONTR AST Additional Contrast? NoneOrdered By: Patrick Ceja on 02-18-2023 [employer] Work Phone: Comprehensive Metabolic Pane mando 02-18-2023 Albumin [Mass/Vol] 4.2 g/dL 3.5 - 5.2 g/dL [employer] Albumin/Globulin [Mass ratio] 1.4 {ratio} 1.0 - 2.5 [employer] ALP [Catalytic activity/Vol] 90 U/L 35 - 104 U/L [employer] ALT [Catalytic activity/Vol] 35 U/L High 5 - 33 U/L [employer] Anion gap [Moles/Vol] 10 mmol/L 9 - 17 mmol/L [employer] AST [Catalytic activity/Vol] 25 U/L NINF - 32 U/L [employer] Bilirubin [Mass/Vol] 0.2 mg/dL Low 0.3 - 1 .2 mg/dL [employer] Calcium [Mass/Vol] 9.5 mg/dL 8.6 - 10. 4 mg/dL [facility] Chloride [Moles/Vol] 104 mmol/L 98 - 10 7 mmol/L [employer] CO2 [Moles/Vol] 25 mmol/L 20 - 31 mmol/L [facility] Creatinine [Mass/Vol] 0.76 mg/dL 0.50 - 0.90 mg/dL [facility] GFR/1.73 sq M.predicted MDRD (S/P/Bld) [Vol rate/Area] - PINF [facility] Comment on above: These results are not [...] 256 mg/dL High 70 - 99 mg/dL [facility] Interpretation and review of laboratory results Abnormal [facility] Potassium [Moles/Vol] 4.4 mmol/L 3.7 - 5.3 mmol/L [facility] Protein [Mass/Vol] 7.2 g/dL 6.4 - 8.3 g/dL [facility] Sodium [Moles/Vol] 139 mmol/L 135 - 144 mmol/L [facility] Urea nitrogen [Mass/Vol] 14 mg/dL 6 - 20 mg/dL [facility] Urea nitrogen/Creatinine [Mass ratio] 18 mg/mg 9 - 20 [facility] Glucose, Whole Bloodon 02-18 Glucose [Mass/Vol] 203 mg/dL High 74 - 100 mg/dL [facility] Interpretation and review of laboratory results Abnormal [facility] Glucose [Mass/Vol] 335 mg/dL High 74 - 100 mg/dL [facility] Interpretation and review of laboratory results Abnormal [facility] No Panel Informationon 02-18 [facility] POCT glucoseon 02-18-2023 Glucose [Mass/Vol] 203 mg/dL [facility] Work Phone: Interpretation and review of laboratory results Normal [facility] Work Phone: QC OK? y [facility] Work Phone: [facility] Work Phone: SPECIMEN REJECTIONon 023 Ordered Test BH,CP [facility] Reason for Rejection Unable to perform testing: Specimen hemolyzed. [facility] Specimen source Nom (Unsp spec) .BLOOD [facility] Urinalysis with Microscopico n 02-18-2023 Bacteria LM Ql (Urine sed) 1+ Abnormal None [facility] Bilirubin Ql (U) Negative NEGATIVE [facility] Clarity (U) Clear Clear [facility] Color (U) Yellow Yellow [facility] Epithelial cells LM.HPF (Urine sed) [#/Area] 0 TO 2 [facility] Glucose Test strip (U) [Mass/Vol] Negative NEGATIVE [facility] Hemoglobin Auto test strip Ql (U) Negative NEGATIVE [facility] Interpretation and review of laboratory results Abnormal [facility] Ketones (U) [Mass/Vol] Negative NEGATIVE [facility] Leukocyte esterase Test strip Ql (U) Negative NEGATIVE [facility] Nitrite Ql (U) Negative NEGATIVE ETNA [facility] pH (U) 6.0 [pH] 5.0 - 9.0 [facility] Protein (U) [Mass/Vol] Negative NEGATIVE [facility] RBC LM.HPF (Urine sed) [#/Area] 0 TO 2 [facility] Specific gravity (U) [Rel density] 1.010 1.010 - 1.020 [facility] Urobilinogen Qn (U) Normal Normal [facility] WBC LM.HPF (Urine sed) [#/Area] 2 TO 5 [facility] XR CHEST PORTABLEon 02-19-20 No acute abnormality . [facility] CONSOLIDATED EXAMINATION: ONE XRAY VIEW OF THE CHEST 02/18/2023 8:01 pm COMPARISON: 12/24/2022 HISTORY: ORDERING SYSTEM PROVIDED HISTORY: Cough TECHNOLOGIST PROVIDED HISTORY: Cough FINDINGS: No lung infiltrate or consolidation. No pneumothorax or pleural effusion. Heart size is normal. [facility] Je Ascencio MD - 02/18/2023 EXAMINATION: ONE XRAY VIEW OF THE CHEST 02/18/2023 8:01 pm COMPARISON: 12/24/2022 HISTORY: ORDERING SYSTEM PROVIDED HISTORY: Cough TECHNOLOGIST PROVIDED HISTORY: Cough FINDINGS: No lung infiltrate or consolidation. No pneumothorax or pleural effusion. Heart size is normal. IMPRESSION: No acute abnormality. [facility] Work Phone: Radiology Study observation (narrative) [facility] Work Phone: XR CHEST PORTABLEOrdered By: Je Ascencio on 02-18-2023 [facility] Work Phone: POINT OF CARE GLUCOSEon Glucose [Mass/Vol] 142 mg/dL Critically high 74-106 T [facility] Comment on above: Performed By: #### P REG #### [facility] [address] [place] [address] [address] Jameel Odell Basic Metabolic Panelon Anion gap [Moles/Vol] 14 mmol/L 9 - 17 mmol/L [facility] Calcium [Mass/Vol] 10.2 mg/dL 8.6 - 10. 4 mg/dL [facility] Chloride [Moles/Vol] 104 mmol/L 98 - 10 7 mmol/L [facility] CO2 [Moles/Vol] 22 mmol/L 20 - 31 mmol/L [facility] Creatinine [Mass/Vol] 0.65 mg/dL 0.50 - 0.90 mg/dL [facility] [employer] GFR/1.73 sq M.predicted MDRD (S/P/Bld) [Vol rate/Area] - PINF [facility] Comment on above: These results are not [...] 118 mg/dL High 70 - 99 mg/dL [facility] [employer] Interpretation and review of laboratory results Abnormal [facility] Potassium [Moles/Vol] 4.1 mmol/L 3.7 - 5.3 mmol/L [facility] Sodium [Moles/Vol] 140 mmol/L 135 - 144 mmol/L [facility] Urea nitrogen [Mass/Vol] 10 mg/dL 6 - 20 mg/dL [facility] Urea nitrogen/Creatinine (Bld) [Mass ratio] 15 9 - 20 [facility]aport [facility] CBC with Auto Differentialon 12-24-2022 Absolute Eos # 0.20 ETNA S [facility] Absolute Immature Granulocyte 0.06 [facility] Absolute Lymph # 3.82 High [facility] SECO URS [facility] Absolute Webster # 0.46 [facility] Basophils (Bld) [#/Vol] 0.04 10*3/uL [facility] Basophils/100 WBC (Bld) 0 % 0 - 2 % [facility] Eosinophils/100 WBC (Bld) 2 % 1 - 4 % [facility] Hematocrit (Bld) [Volume fraction] 42.8 % 36.3 - 47.1 % [facility] Hemoglobin (Bld) [Mass/Vol] 14.4 g/dL 11.9 - 15.1 g/dL [facility] Immature granulocytes/100 WBC (Bld) 1 % High 0 [facility] Interpretation and review of laboratory results Abnormal [facility] Lymphocytes/100 WBC (Bld) 37 % 24 - 43 % [facility] MCH (RBC) [Entitic mass] 30.2 pg 25.2 - 33.5 pg [facility] MCHC (RBC) [Mass/Vol] 33.6 g/dL 28.4 - 34.8 g/dL [facility] MCV (RBC) [Entitic vol] 89.7 fL 82.6 - 102.9 fL [facility] Monocytes/100 WBC (Bld) 5 % 3 - 12 % [facility] NRBC Automated 0.0 0.0 per 100 WBC [facility] Platelet distribution width (Bld) [Ratio] 12.3 % 11.8 - 14.4 % [facility] Platelet mean volume (Bld) [Entitic vol] 10.5 fL 8.1 - 13.5 fL [facility] Platelets (Bld) [#/Vol] 326 10*3/uL [facility] RBC (Bld) [#/Vol] 4.77 10*6/uL 3.95 - 5.1 1 m/uL [facility] Segmented neutrophils/100 WBC (Bld) 55 % 36 - 65 % [facility] Segs Absolute 5.75 [facility] WBC (Bld) [#/Vol] 10.3 10*3/uL [facility] D-Dimer, Quantitativeon Fibrin D-dimer FEU IA (Bld) [Mass/Vol] 0.44 ug/mL [facility] Comment on above: When combined with [...] more prevalent in patients with distal DVT. [facility] Microscopic Urinalysison Bacteria, UA TRACE Abnormal None [facility] Epithelial Cells UA 0 TO 2 [facility] Interpretation and review of laboratory results Abnormal [facility] Mucus, UA TRACE Abnormal None [facility] RBC clumps Auto (Urine sed) [#/Area] 0 TO 2 [facility] WBC, UA 0 TO 2 [facility] Troponinon 12-24-2022 Troponin I.cardiac DL <= 0.01 ng/mL [Mass/Vol] 6 ng/L 0 - 14 ng/L [facility] Comment on above: High Sensitivity Tro ponin values cannot be compared with other Troponin methodologies. [facility] Urinalysis with Reflex to Cu ltureon 12-24-2022 Bilirubin Urine Negative NEGATIVE [facility] Color, UA Yellow Yellow [facility] Glucose Auto test strip (U) [Mass/Vol] Negative NEGATIVE [facility] Ketones (U) [Mass/Vol] Negative NEGATIVE [facility] Leukocyte esterase Auto test strip Ql (U) Negative NEGATIVE [facility] Nitrite Auto test strip Ql (U) Negative NEGATIVE [facility] Protein (U) [Mass/Vol] 6.0 mg/dL 5.0 - 9.0 [facility] Protein (U) [Mass/Vol] Negative NEGATIVE [facility] Specific Onyx, UA 1.015 1.010 - 1.020 [facility] Turbidity UA Clear Clear [facility] Urine Hgb Negative NEGATIVE [facility] Urobilinogen, Urine Normal Normal [facility] XR CHEST PORTABLEon 12-25-19 [address] cardi[address]ulmonary findings. [facility] EXAMINATION: ONE XRAY VIEW OF THE CHEST 12/24/2022 3:17 pm COMPARISON: In 1621 HISTORY: ORDERING SYSTEM PROVIDED HISTORY: chest pain, shortness of breath TECHNOLOGIST PROVIDED HISTORY: chest pain, shortness of breath Initial encounter FINDINGS: No focal consolidation, pleural effusion or pneumothorax. The cardiomediastinal silhouette is stable. No overt pulmonary edema. The osseous structures are stable. [facility] Rina Herrera MD - 12/24/2022 EXAMINATION: [...] are stable. IMPRESSION: No acute cardiopulmonary findings. [facility] Work Phone: Radiology Study observation (narrative) [facility] Work Phone: XR CHEST PORTABLEOrdered By: Rina Herrera on 12-24-2022 [facility] Work Phone: Hemoglobin A1Con 11-21-2022 Average glucose Estimated from glycated hemoglobin (Bld) [Mass/Vol] 163 mg/dL [facility] Comment on above: The ADA and AACC rec ommend providing the estimated average glucose result to permit better patient understanding of their HBA1c result. HbA1c (Bld) [Mass fraction] 7.3 % High 4.0 - 6.0 % [facility] Interpretation and review of laboratory results Abnormal [facility] CBC with Auto Differentialon 11-01-2022 Absolute [facility]os # 0.13 [facility] Absolute Immature Granulocyte 0.04 [facility] Absolute Lymph # 4.23 High [facility] Absolute [place] # 0.66 [facility] RS [facility] Basophils (Bld) [#/Vol] 0.08 10*3/uL [facility] Basophils/100 WBC (Bld) 1 % 0 - 2 % [facility] Eosinophils/100 WBC (Bld) 1 % 1 - 4 % [facility] Hematocrit (Bld) [Volume fraction] 44.7 % 36.3 - 47.1 % [facility] Hemoglobin (Bld) [Mass/Vol] 15.7 g/dL High 11.9 - 15.1 g/dL [facility] Immature granulocytes/100 WBC (Bld) 0 % 0 [facility] Interpretation and review of laboratory results Abnormal [facility] Lymphocytes/100 WBC (Bld) 34 % 24 - 43 % [facility] MCH (RBC) [Entitic mass] 32.0 pg 25.2 - 33.5 pg [facility] MCHC (RBC) [Mass/Vol] 35.1 g/dL High 28.4 - 34.8 g/dL [facility] MCV (RBC) [Entitic vol] 91.0 fL 82.6 - 102.9 fL [facility] Monocytes/100 WBC (Bld) 5 % 3 - 12 % [facility] NRBC Automated 0.0 0.0 per 100 WBC [facility] Platelet distribution width (Bld) [Ratio] 12.3 % 11.8 - 14.4 % [facility] Platelet mean volume (Bld) [Entitic vol] 10.0 fL 8.1 - 13.5 fL [facility] Platelets (Bld) [#/Vol] 367 10*3/uL [facility] RBC (Bld) [#/Vol] 4.91 10*6/uL 3.95 - 5.1 1 m/uL [facility] Segmented neutrophils/100 WBC (Bld) 59 % 36 - 65 % [facility] Segs Absolute 7.39 [facility] WBC (Bld) [#/Vol] 12.5 10*3/uL High [facility] CMPon 11-01-2022 Albumin [Mass/Vol] 4.4 g/dL 3.5 - 5.2 g/dL [facility] Albumin/Globulin [Mass ratio] 1.2 {ratio} 1.0 - 2.5 [facility] ALP [Catalytic activity/Vol] 94 U/L 35 - 104 U/L [facility] ALT [Catalytic activity/Vol] 33 U/L 5 - 33 U/L [facility] Anion gap [Moles/Vol] 13 mmol/L 9 - 17 mmol/L [facility] AST [Catalytic activity/Vol] 26 U/L NINF - 32 U/L [facility] Bilirubin [Mass/Vol] 0.4 mg/dL 0.3 - 1 .2 mg/dL [facility] Calcium [Mass/Vol] 10.1 mg/dL 8.6 - 10. 4 mg/dL [facility] Chloride [Moles/Vol] 102 mmol/L 98 - 10 7 mmol/L [facility] CO2 [Moles/Vol] 24 mmol/L 20 - 31 mmol/L [facility] Creatinine [Mass/Vol] 0.71 mg/dL 0.50 - 0.90 mg/dL [facility] GFR/1.73 sq M.predicted MDRD (S/P/Bld) [Vol rate/Area] - PINF [facility] Comment on above: These results are [...] 110 mg/dL High 70 - 99 mg/dL [facility] Interpretation and review of laboratory results Abnormal [facility] Potassium [Moles/Vol] 4.0 mmol/L 3.7 - 5.3 mmol/L [facility] Protein [Mass/Vol] 8.0 g/dL 6.4 - 8.3 g/dL [facility] Sodium [Moles/Vol] 139 mmol/L 135 - 144 mmol/L [facility] Urea nitrogen [Mass/Vol] 11 mg/dL 6 - 20 mg/dL [facility] Urea nitrogen/Creatinine (Bld) [Mass ratio] 15 9 - 20 [facility] , Urineon 3 Beta HCG ( test) Ql (U) Negative NEGATIVE [facility] Comment on above: Specimens with hCG l evels near the threshold of the test (25 mIU/mL) may give a negative or indeterminate result. In such cases, another test should be performed with a new specimen in 48-72 hours. If early is suspected clinically in this setting, correlation with quantitative serum b-hCG level is suggested. [employer] has confirmed the use of plasma for this test. This has not been cleared or approved by the U.S. Food and Drug Administration. The FDA has determined that such clearance is not necessary. [facility] Urinalysis with Microscopico n 11-01-2022 Bilirubin Urine Negative NEGATIVE [facility] [employer] Color, UA Yellow Yellow [facility] Epithelial Cells UA 0 TO 2 [facility] Glucose Auto test strip (U) [Mass/Vol] Negative NEGATIVE [facility] Interpretation and review of laboratory results Abnormal [facility] Ketones (U) [Mass/Vol] Negative NEGATIVE [facility] Leukocyte esterase Auto test strip Ql (U) Negative NEGATIVE [facility] Nitrite Auto test strip Ql (U) Negative NEGATIVE [facility] Protein (U) [Mass/Vol] 6.0 mg/dL 5.0 - 9.0 [facility] Protein (U) [Mass/Vol] Negative NEGATIVE [facility] RBC clumps Auto (Urine sed) [#/Area] 0 TO 2 [facility] Specific Onyx, UA 1.020 1.010 - 1.020 [facility] Turbidity UA Clear Clear [facility] Urine Hgb 1+ Abnormal NEGATIVE [facility] Urobilinogen, Urine Normal Normal [facility] WBC, UA None [facility] CBC with Auto Differentialon 10-05-2022 Absolute Eos # 0.14 [facility] Absolute Immature Granulocyte 0.05 [facility] Absolute Lymph # 3.00 [facility] Absolute Webster # 0.48 [facility] Basophils (Bld) [#/Vol] 0.05 10*3/uL [facility] Basophils/100 WBC (Bld) 1 % 0 - 2 % [facility] Eosinophils/100 WBC (Bld) 1 % 1 - 4 % [facility] Hematocrit (Bld) [Volume fraction] 45.2 % 36.3 - 47.1 % [facility] Hemoglobin (Bld) [Mass/Vol] 15.8 g/dL High 11.9 - 15.1 g/dL [facility] Immature granulocytes/100 WBC (Bld) 1 % High 0 [facility] Interpretation and review of laboratory results Abnormal [facility] Lymphocytes/100 WBC (Bld) 29 % 24 - 43 % [facility] MCH (RBC) [Entitic mass] 32.0 pg 25.2 - 33.5 pg [facility] MCHC (RBC) [Mass/Vol] 35.0 g/dL High 28.4 - 34.8 g/dL [facility] MCV (RBC) [Entitic vol] 91.7 fL 82.6 - 102.9 fL [facility] Monocytes/100 WBC (Bld) 5 % 3 - 12 % [facility] NRBC Automated 0.0 0.0 per 100 WBC [facility] Platelet distribution width (Bld) [Ratio] 12.3 % 11.8 - 14.4 % [facility] Platelet mean volume (Bld) [Entitic vol] 9.9 fL 8.1 - 13.5 fL [facility] Platelets (Bld) [#/Vol] 337 10*3/uL [facility] RBC (Bld) [#/Vol] 4.93 10*6/uL 3.95 - 5.1 1 m/uL [facility] Segmented neutrophils/100 WBC (Bld) 63 % 36 - 65 % [facility] Segs Absolute 6.52 [facility] WBC (Bld) [#/Vol] 10.2 10*3/uL [facility] CMPon 10-05-2022 Albumin [Mass/Vol] 4.4 g/dL 3.5 - 5.2 g/dL [facility] Albumin/Globulin [Mass ratio] 1.4 {ratio} 1.0 - 2.5 [facility] ALP (Bld) [Catalytic activity/Vol] 97 U/L 35 - 104 U/L [facility] ALT [Catalytic activity/Vol] 46 U/L High 5 - 33 U/L [facility] Anion gap [Moles/Vol] 13 mmol/L 9 - 17 mmol/L [facility] AST [Catalytic activity/Vol] 50 U/L High NINF - 32 U/L [facility] Bilirubin [Mass/Vol] 0.6 mg/dL 0.3 - 1 .2 mg/dL [facility] Calcium [Mass/Vol] 9.8 mg/dL 8.6 - 10. 4 mg/dL [facility] Chloride [Moles/Vol] 101 mmol/L 98 - 10 7 mmol/L [facility] CO2 [Moles/Vol] 25 mmol/L 20 - 31 mmol/L [facility] Creatinine [Mass/Vol] 0.68 mg/dL 0.50 - 0.90 mg/dL [facility] GFR/1.73 sq M.predicted MDRD (S/P/Bld) [Vol rate/Area] - PINF [facility] Comment on above: Effective Jun 25, [...] 174 mg/dL High 70 - 99 mg/dL [facility] Interpretation and review of laboratory results Abnormal [facility] Potassium [Moles/Vol] 4.0 mmol/L 3.7 - 5.3 mmol/L [facility] Protein [Mass/Vol] 7.6 g/dL 6.4 - 8.3 g/dL [facility] Sodium [Moles/Vol] 139 mmol/L 135 - 144 mmol/L [facility] Urea nitrogen (BldV) [Mass/Vol] 7 mg/dL 6 - 20 mg/dL [facility] Urea nitrogen/Creatinine (Bld) [Mass ratio] 10 9 - 20 [facility] Urinalysison 10-05-2022 Bilirubin Urine Negative NEGATIVE [facility] Color, UA Yellow Yellow [facility] Glucose, Ur Negative NEGATIVE [facility] Interpretation and review of laboratory results Abnormal [facility] Ketones Ql (U) Negative NEGATIVE [facility] Leukocyte esterase Test strip Ql (U) Negative NEGATIVE [facility] Nitrite, Urine Negative NEGATIVE [facility] pH, UA 6.0 5.0 - 9.0 [facility] Protein, UA Negative NEGATIVE [facility] Specific Onyx, UA 1.025 High 1.010 - 1.020 [facility] Turbidity UA Clear Clear [facility] Urine Hgb Negative NEGATIVE [facility] Urobilinogen, Urine Normal Normal [facility] Urine Preg (Lab)on 3 Beta HCG ( test) Ql (U) Negative NEGATIVE [facility] Comment on above: Specimens with hCG l evels near the threshold of the test (25 mIU/mL) may give a negative or indeterminate result. In such cases, another test should be performed with a new specimen in 48-72 hours. If early is suspected clinically in this setting, correlation with quantitative serum b-hCG level is suggested. [employer] has confirmed the use of plasma for this test. This has not been cleared or approved by the U.S. Food and Drug Administration. The FDA has determined that such clearance is not necessary. [facility] CBC with Auto Differentialon 09-27-2022 Absolute Eos # 0.18 [facility] Absolute Immature Granulocyte 0.04 [facility] Absolute Lymph # 4.02 High [facility] Absolute Webster # 0.58 [facility] RS [facility] Basophils (Bld) [#/Vol] 0.05 10*3/uL [facility] Basophils/100 WBC (Bld) 0 % 0 - 2 % [facility] Eosinophils/100 WBC (Bld) 2 % 1 - 4 % [facility] Hematocrit (Bld) [Volume fraction] 41.9 % 36.3 - 47.1 % [facility] Hemoglobin (Bld) [Mass/Vol] 14.7 g/dL 11.9 - 15.1 g/dL [facility] Immature granulocytes/100 WBC (Bld) 0 % 0 [facility] Interpretation and review of laboratory results Abnormal [facility] Lymphocytes/100 WBC (Bld) 33 % 24 - 43 % [facility] MCH (RBC) [Entitic mass] 31.7 pg 25.2 - 33.5 pg [facility] MCHC (RBC) [Mass/Vol] 35.1 g/dL High 28.4 - 34.8 g/dL [facility] MCV (RBC) [Entitic vol] 90.3 fL 82.6 - 102.9 fL [facility] Monocytes/100 WBC (Bld) 5 % 3 - 12 % [facility] NRBC Automated 0.0 0.0 per 100 WBC [facility] Platelet distribution width (Bld) [Ratio] 12.5 % 11.8 - 14.4 % [facility] Platelet mean volume (Bld) [Entitic vol] 10.2 fL 8.1 - 13.5 fL [facility] Platelets (Bld) [#/Vol] 294 10*3/uL [facility] RBC (Bld) [#/Vol] 4.64 10*6/uL 3.95 - 5.1 1 m/uL [facility] Segmented neutrophils/100 WBC (Bld) 60 % 36 - 65 % [facility] Segs Absolute 7.35 [facility] WBC (Bld) [#/Vol] 12.2 10*3/uL High [facility] Comprehensive Metabolic Pane mando 09-27-2022 Albumin [Mass/Vol] 4.3 g/dL 3.5 - 5.2 g/dL [facility] Albumin/Globulin [Mass ratio] 1.5 {ratio} 1.0 - 2.5 [facility] ALP (Bld) [Catalytic activity/Vol] 89 U/L 35 - 104 U/L [facility] ALT [Catalytic activity/Vol] 29 U/L 5 - 33 U/L [facility] Anion gap [Moles/Vol] 11 mmol/L 9 - 17 mmol/L [facility] AST [Catalytic activity/Vol] 28 U/L NINF - 32 U/L [facility] Bilirubin [Mass/Vol] 0.7 mg/dL 0.3 - 1 .2 mg/dL [facility] Calcium [Mass/Vol] 10.2 mg/dL 8.6 - 10. 4 mg/dL [facility] Chloride [Moles/Vol] 103 mmol/L 98 - 10 7 mmol/L [facility] CO2 [Moles/Vol] 23 mmol/L 20 - 31 mmol/L [facility] Creatinine [Mass/Vol] 0.57 mg/dL 0.50 - 0.90 mg/dL [facility] GFR/1.73 sq M.predicted MDRD (S/P/Bld) [Vol rate/Area] - PINF [facility] Comment on above: Effective Jun 25, [...] 151 mg/dL High 70 - 99 mg/dL [facility] Interpretation and review of laboratory results Abnormal [facility] Potassium [Moles/Vol] 3.9 mmol/L 3.7 - 5.3 mmol/L [facility] Protein [Mass/Vol] 7.2 g/dL 6.4 - 8.3 g/dL [facility] Sodium [Moles/Vol] 137 mmol/L 135 - 144 mmol/L [facility] Urea nitrogen (BldV) [Mass/Vol] 9 mg/dL 6 - 20 mg/dL [facility] Urea nitrogen/Creatinine (Bld) [Mass ratio] 16 9 - 20 [facility] Lactic Acidon 09-27-2022 Lactate [Moles/Vol] 1.2 mmol/L 0.5 - 2. 2 mmol/L [facility] Lipaseon 09-27-2022 Lipase [Catalytic activity/Vol] 44 U/L 13 - 60 U/L [facility] No Panel Informationon 09-27 [facility] , Urineon 3 Beta HCG ( test) Ql (U) Negative NEGATIVE [facility] Comment on above: Specimens with hCG l evels near the threshold of the test (25 mIU/mL) may give a negative or indeterminate result. In such cases, another test should be performed with a new specimen in 48-72 hours. If early is suspected clinically in this setting, correlation with quantitative serum b-hCG level is suggested. [employer] has confirmed the use of plasma for this test. This has not been cleared or approved by the U.S. Food and Drug Administration. The FDA has determined that such clearance is not necessary. [facility] Urinalysis with Microscopico n 09-27-2022 Bacteria, UA 1+ Abnormal None [facility] Bilirubin Urine Negative NEGATIVE [facility] Color, UA Yellow Yellow [facility] Epithelial Cells UA 0 TO 2 [facility] Glucose, Ur Negative NEGATIVE [facility] Interpretation and review of laboratory results Abnormal [facility] Ketones Ql (U) Negative NEGATIVE [facility] Leukocyte esterase Test strip Ql (U) Negative NEGATIVE [facility] Mucus, UA 3+ Abnormal None [facility] Nitrite, Urine Negative NEGATIVE [facility] pH, UA 6.0 5.0 - 9.0 [facility] Protein, UA Negative NEGATIVE [facility] RBC, UA 0 TO 2 [facility] Specific Onyx, UA High 1.010 - 1.020 [facility] Turbidity UA Clear Clear [facility] Urine Hgb Negative NEGATIVE [facility] Urobilinogen, Urine Normal Normal [facility] WBC, UA 0 TO 2 [facility] CBC with Auto Differentialon 07-08-2022 Absolute Eos # 0.12 [facility] Absolute Immature Granulocyte [facility] Absolute Lymph # 3.54 [facility] Absolute Webster # 0.64 [facility] Basophils (Bld) [#/Vol] 0.04 10*3/uL [facility] Basophils/100 WBC (Bld) 0 % 0 - 2 % [facility] Eosinophils/100 WBC (Bld) 1 % 1 - 4 % [facility] Hematocrit (Bld) [Volume fraction] 42.9 % 36.3 - 47.1 % [facility] Hemoglobin (Bld) [Mass/Vol] 15.1 g/dL 11.9 - 15.1 g/dL [facility] Immature granulocytes/100 WBC (Bld) 0 % 0 [facility] Interpretation and review of laboratory results Abnormal [facility] Lymphocytes/100 WBC (Bld) 38 % 24 - 43 % [facility] MCH (RBC) [Entitic mass] 31.4 pg 25.2 - 33.5 pg [facility] MCHC (RBC) [Mass/Vol] 35.2 g/dL High 28.4 - 34.8 g/dL [facility] MCV (RBC) [Entitic vol] 89.2 fL 82.6 - 102.9 fL [facility] Monocytes/100 WBC (Bld) 7 % 3 - 12 % [facility] NRBC Automated 0.0 0.0 per 100 WBC [facility] Platelet distribution width (Bld) [Ratio] 12.6 % 11.8 - 14.4 % [facility] Platelet mean volume (Bld) [Entitic vol] 10.4 fL 8.1 - 13.5 fL [facility] Platelets (Bld) [#/Vol] 309 10*3/uL [facility] RBC (Bld) [#/Vol] 4.81 10*6/uL 3.95 - 5.1 1 m/uL [facility] Segmented neutrophils/100 WBC (Bld) 54 % 36 - 65 % [facility] Segs Absolute 4.86 [facility] WBC (Bld) [#/Vol] 9.2 10*3/uL [facility] CMPon 07-08-2022 Albumin [Mass/Vol] 4.3 g/dL 3.5 - 5.2 g/dL [facility] Albumin/Globulin [Mass ratio] 1.5 {ratio} 1 - 2.5 [facility] ALP (Bld) [Catalytic activity/Vol] 93 U/L 35 - 104 U/L [facility] ALT [Catalytic activity/Vol] 55 U/L High 5 - 33 U/L [facility] Anion gap [Moles/Vol] 10 mmol/L 9 - 17 mmol/L [facility] AST [Catalytic activity/Vol] 53 U/L High NINF - 32 U/L [facility] Bilirubin [Mass/Vol] 0.8 mg/dL 0.3 - 1 .2 mg/dL [facility] Calcium [Mass/Vol] 9.5 mg/dL 8.6 - 10. 4 mg/dL [facility] Chloride [Moles/Vol] 103 mmol/L 98 - 10 7 mmol/L [facility] CO2 [Moles/Vol] 26 mmol/L 20 - 31 mmol/L [facility] Creatinine [Mass/Vol] 0.67 mg/dL 0.5 - 0.9 mg/dL [facility] GFR/1.73 sq M.predicted MDRD (S/P/Bld) [Vol rate/Area] - PINF [facility] Comment on above: Effective Jun 25, [...] 132 mg/dL High 70 - 99 mg/dL [facility] Interpretation and review of laboratory results Abnormal [facility] Potassium [Moles/Vol] 4.0 mmol/L 3.7 - 5.3 mmol/L [facility] Protein [Mass/Vol] 7.2 g/dL 6.4 - 8.3 g/dL [facility] Sodium [Moles/Vol] 139 mmol/L 135 - 144 mmol/L [facility] Urea nitrogen (BldV) [Mass/Vol] 11 mg/dL 6 - 20 mg/dL [facility] Urea nitrogen/Creatinine (Bld) [Mass ratio] 16 9 - [address] [facility] [address] CHEST PULMONARY EMBOLISM W CONTRASTon 07-08-2022 [...] Abdomen: The visualized upper abdomen is unremarkable. [facility] RIS Chinyere Mendoza MD - 07/08/2022 EXAMINATION: CTA [...] or acute thoracic aortic abnormality. Clear lungs. [employer] Work Phone: Radiology Study observation (narrative) [employer] Work Phone: CT CHEST PULMONARY EMBOLISM W CONTRASTOrdered By: Chinyere Penn on 07-08-2022 [employer] Work Phone: [employer], Quantitativeon 06-23 [employer], Quant 0.27 [employer] Comment on above: When combined with a [...] more prevalent in patients with distal DVT. [employer] XR CHEST (2 VW)on 07-08-2022 No acute abnormality visualized. [facility] EXAMINATION: TWO XRAY VIEWS OF THE CHEST 07/08/2022 5:27 pm COMPARISON: None. HISTORY: ORDERING SYSTEM PROVIDED HISTORY: cough, SOB TECHNOLOGIST PROVIDED HISTORY: cough, SOB FINDINGS: There is bandlike atelectasis versus scar in the right mid lung. No consolidation or effusion is identified. The heart size is normal. [facility] Onel Roberts MD - 07/08/2022 EXAMINATION: TWO XRAY VIEWS OF THE CHEST 07/08/2022 5:27 pm COMPARISON: None. HISTORY: ORDERING SYSTEM PROVIDED HISTORY: cough, SOB TECHNOLOGIST PROVIDED HISTORY: cough, SOB FINDINGS: There is bandlike atelectasis versus scar in the right mid lung. No consolidation or effusion is identified. The heart size is normal. IMPRESSION: No acute abnormality visualized. [employer] Phone: Radiology Study observation (narrative) [employer] Phone: XR CHEST (2 VW)Ordered By: Riya Roberts on 07-08-2022 [facility] [employer] Phone: CBC AUTO DIFFon 04-23-2022 BASO # 0.1 103/ul Normal 0.0-0.1 [facility] Comment on above: Performed By: #### P REG #### [facility] [address] [place] [address] Dr. Jameel Odell Basophils/100 WBC (Bld) 0.5 % Normal 0.2-2.0 [facility] Comment on above: Performed By: #### P REG #### [facility] [address] [address] [address] Jameel Odell EO # 0.2 103/ul Normal 0.0-0.7 [facility] Comment on above: Performed By: #### P REG #### [facility] [address] [address] [address] Jameel Odell Eosinophils/100 WBC (Bld) 1.5 % Normal 0.9-7.0 [facility] Comment on above: Performed By: #### P REG #### [facility] [address] [address] [address] Jameel Odell Erythrocyte distribution width (RBC) [Ratio] 13.0 % Normal 11.0-15.0 [facility] Comment on above: Performed By: #### P REG #### [facility] [address] [place] [address] Dr. Jameel Odell Hematocrit (Bld) [Volume fraction] 43.9 % Normal 36.0-48.0 [facility] Comment on above: Performed By: #### P REG #### [facility] [address] [place] [address] Dr. Jameel Odell Hemoglobin (Bld) [Mass/Vol] 14.6 g/dL Normal 12.0-16.0 [facility] Comment on above: Performed By: #### P REG #### [facility] [address] [place] [address] Dr. Jameel Odell IG # 0.03 10e3/ul Normal 0.00-0.03 [facility] Comment on above: Performed By: #### P REG #### [facility] [address] [place] [address] Dr. Jameel Odell IG % 0.3 % Normal 0.0-0.5 [facility] Comment on above: Performed By: #### P REG #### [facility] [address] [place] [address] Dr. Jameel Odell LYMPH # 3.7 103/ul Normal 1.2-3.8 [facility] Comment on above: Performed By: #### P REG #### [facility] [address] [place] [address] Dr. Jameel Odell Lymphocytes/100 WBC (Bld) 36.3 % Normal 20.5-60.0 [facility] Comment on above: Performed By: #### P REG #### [facility] [address] [place] [address] Dr. Jameel Odell MANUAL DIFF REQ NO Normal [facility] Comment on above: Performed By: #### P REG #### [facility] [address] [place] [address] Dr. Jameel Odell MCH (RBC) [Entitic mass] 30.2 pg Normal 26.7-34.0 [facility] Comment on above: Performed By: #### P REG #### [facility] [address] [place] [address] Dr. Jameel Odell MCHC (RBC) [Mass/Vol] 33.3 g/dL Normal 29.9-35.2 [facility] Comment on above: Performed By: #### P REG #### [facility] [address] [address] [address] Jameel Odell MCV (RBC) [Entitic vol] 90.7 fL Normal 81.0-99.0 [facility] Comment on above: Performed By: #### P REG #### [facility] [address] [address] [address] Jameel Odell MONO # 0.6 103/ul Normal 0.3-0.8 [facility] Comment on above: Performed By: #### P REG #### [facility] [address] [place] [address] Dr. Jameel Odell Monocytes/100 WBC (Bld) 5.7 % Normal 1.7-12.0 [facility] Comment on above: Performed By: #### P REG #### [facility] [address] [place] [address] Dr. Jameel Odell NEUT # 5.7 103/ul Normal 1.4-6.5 [facility] Comment on above: Performed By: #### P REG #### [facility] [address] [place] [address] Dr. Jameel Odell Neutrophils/100 WBC (Bld) 55.7 % Normal 43.0-75.0 [facility] Comment on above: Performed By: #### P REG #### [facility] [address] [place] [address] Dr. Jameel Odell Platelet mean volume (Bld) [Entitic vol] 10.4 fL Normal 9.5-13.5 [facility] Comment on above: Performed By: #### P REG #### [facility] [address] [place] [address] Dr. Jameel Odell PLT 304 103/ul Normal 150-450 [facility] Comment on above: Performed By: #### P REG #### [facility] [address] [place] [address] Dr. Jameel Odell RBC 4.84 106/ul Normal 4.20-5.40 [facility] Comment on above: Performed By: #### P REG #### [facility] [address] [place] [address] Dr. Jameel Odell WBC 10.2 103/ul Normal 4.0-11.0 [facility] Comment on above: Performed By: #### P REG #### [facility] [id number] Jameel Odell CT LSPINE WO CONon [...] BRIAN LORA Date: 2022-04-23 02:17 Normal [facility]on SARS-CoV-2 (COVID-19) RNA ABRAHAM+probe Ql (Unsp spec) Not detected Normal NOT DETECTED [facility] Comment on above: Result Comment: When [...] for this test is supported by the [place] of Health and Human Service's declaration that [...] used). Performed By: #### C VDTB #### [facility] [address] [place] [address] Dr. Jameel Odell PREG HCG QUALon 04-23-2022 , QUAL Negative Normal NEGATIVE [facility] Comment on above: Performed By: #### P REG #### [facility] [address] [place] [address] Dr. Jameel Odell PROF 14(COMP METB)on 022 Albumin [Mass/Vol] 3.7 g/dL Normal 3.4-5.0 [facility] Comment on above: Performed By: #### P REG #### [facility] [address] [place] [address] Dr. Jameel Odell Albumin/Globulin [Mass ratio] 1.0 {ratio} Normal [facility] Comment on above: Performed By: #### P REG #### [facility] [address] [place] [address] Dr. Jameel Odell ALP [Catalytic activity/Vol] 74 U/L Normal 46-116 [facility] Comment on above: Performed By: #### P REG #### [facility] [address] [place] [address] Dr. Jameel Odell ALT [Catalytic activity/Vol] 33 U/L Normal 14-59 [facility] Comment on above: Performed By: #### P REG #### [facility] [address] [place], [place] [id number] Dr. Jameel Odell Anion gap [Moles/Vol] 13.9 mmol/L Normal [facility] Comment on above: Performed By: #### P REG #### [facility] [address] [address] [address] Jameel Odell AST [Catalytic activity/Vol] 21 U/L Normal 15-37 [facility] Comment on above: Performed By: #### P REG #### [facility] [address] [address] [address] Jameel Odell Bilirubin [Mass/Vol] 0.4 mg/dL Normal 0.2-1.0 [facility] Comment on above: Performed By: #### P REG #### [facility] [address] [address] [address] Jameel Odell Calcium [Mass/Vol] 9.6 mg/dL Normal 8.5-10.1 [facility] Comment on above: Performed By: #### P REG #### [facility] [address] [place] [address] Dr. Jameel Odell Chloride [Moles/Vol] 104 mmol/L Normal 98-107 [facility] Comment on above: Performed By: #### P REG #### [facility] [address] [address] [address] Jameel Odell CO2 [Moles/Vol] 23.8 mmol/L Normal 21.0-32.0 [facility] Comment on above: Performed By: #### P REG #### [facility] [address] [address] [address] Jameel Odell Creatinine [Mass/Vol] 0.73 mg/dL Normal 0.55-1.02 [facility] Comment on above: Performed By: #### P REG #### [facility] [address] [place] [address] Dr. Jameel Odell EGFR-AF FINNISH >60 Normal >=60 [facility] Comment on above: Performed By: #### P REG #### [facility] [address] [place] [address] Dr. Jameel Odell EGFR-NON AF FINNISH >60 Normal >=60 [facility] Comment on above: Performed By: #### P REG #### [facility] [address] [address] [address] Jameel Odell Globulin (S) [Mass/Vol] 3.8 g/dL Normal [facility] Comment on above: Performed By: #### P REG #### [facility] [address] [address] [address] Jameel Odell Glucose [Mass/Vol] 190 mg/dL Critically high 74-106 [facility] Comment on above: Performed By: #### P REG #### [facility] [address] [address] [address] Jameel Odell Potassium [Moles/Vol] 3.7 mmol/L Normal 3.5-5.1 [facility] Comment on above: Performed By: #### P REG #### [facility] [address] [address] [address] Jameel Odell Protein [Mass/Vol] 7.5 g/dL Normal 6.4-8.2 [facility] Comment on above: Performed By: #### P REG #### [facility] [address] [address] [address] Jameel Odell Sodium [Moles/Vol] 138 mmol/L Normal 136-145 [facility] Comment on above: Performed By: #### P REG #### [facility] [address] [address] [address] Jameel Odell Urea nitrogen [Mass/Vol] 9.0 mg/dL Normal 7.0-18.0 [facility] Comment on above: Performed By: #### P REG #### [facility] [address] [address] [address] Jameel Odell Urea nitrogen/Creatinine [Mass ratio] 12.3 mg/mg Normal [facility] Comment on above: Performed By: #### P REG #### [facility] [address] [address] [address] Jameel Odell PROTIMEon 04-23-2022 INR Coag (PPP) [Relative time] 0.94 {INR} Normal [facility] Comment on above: Performed By: #### P TT, PT #### [facility] [address] [place] [address] Dr. Jameel Odell INR GUIDELINES SEE BELOW Normal [facility] Comment on above: Result Comment: [place] RED INR: 2.0 - 3.0 CONDITIONS NOT LISTED BELOW 2.5 - 3.5 FOR PROSTHETIC HEART VALVE REPLACEMENT 2.5 - 3.5 RECURRENT THROMBOSIS Performed By: #### P TT, PT #### [facility] [address] [place] [address] Dr. Jameel Odell PT Coag (PPP) [Time] 10.2 s Normal 9.0-11.6 [facility] Comment on above: Performed By: #### P TT, PT #### [facility] [address] [place] [address] Dr. Jameel Odell PTTon 04-23-2022 aPTT Coag (Bld) [Time] 24.0 s Normal 22.3-36.2 [facility] Comment on above: Performed By: #### P TT, PT #### [facility] [address] [place] [address] Dr. Jameel Odell CBC AUTO DIFFon 03-21-2022 BASO # 0.1 103/ul Normal 0.0-0.1 [facility] Comment on above: Performed By: #### C BC #### [facility] [address] [place] [address] Dr. Jameel Odell Basophils/100 WBC (Bld) 0.5 % Normal 0.2-2.0 [facility] Comment on above: Performed By: #### C BC #### [facility] [address] [place] [address] Dr. Jameel Odell EO # 0.1 103/ul Normal 0.0-0.7 [facility] Comment on above: Performed By: #### C BC #### [facility] [address] [place] [address] Dr. Jameel Odell Eosinophils/100 WBC (Bld) 0.7 % Critically low 0.9-7.0 [facility] Comment on above: Performed By: #### C BC #### [facility] [address] [address] [address] Jameel Odell Erythrocyte distribution width (RBC) [Ratio] 13.0 % Normal 11.0-15.0 [facility] Comment on above: Performed By: #### C BC #### [facility] [address] [place] [address] Dr. Jameel Odell Hematocrit (Bld) [Volume fraction] 45.8 % Normal 36.0-48.0 [facility] Comment on above: Performed By: #### C BC #### [facility] [address] [place] [address] Dr. Jameel Odell Hemoglobin (Bld) [Mass/Vol] 14.8 g/dL Normal 12.0-16.0 [facility] Comment on above: Performed By: #### C BC #### [facility] [address] [place] [address] Dr. Jameel Odell IG # 0.04 10e3/ul Critically high 0.00-0.03 [facility] Comment on above: Performed By: #### C BC #### [facility] [address] [place] [address] Dr. Jameel Odell IG % 0.3 % Normal 0.0-0.5 [facility] Comment on above: Performed By: #### C BC #### [facility] [address] [place] [address] Dr. Jameel Odell LYMPH # 3.0 103/ul Normal 1.2-3.8 [facility] Comment on above: Performed By: #### C BC #### [facility] [address] [place] [address] Dr. Jameel Odell Lymphocytes/100 WBC (Bld) 25.5 % Normal 20.5-60.0 [facility] Comment on above: Performed By: #### C BC #### [facility] [address] [place] [address] Dr. Jameel Odell MANUAL DIFF REQ NO Normal [facility] Comment on above: Performed By: #### C BC #### [facility] [address] [address] [address] Jameel Odell MCH (RBC) [Entitic mass] 30.4 pg Normal 26.7-34.0 [facility] Comment on above: Performed By: #### C BC #### [facility] [address] [place] [address] Dr. Jameel Odell MCHC (RBC) [Mass/Vol] 32.3 g/dL Normal 29.9-35.2 [facility] Comment on above: Performed By: #### C BC #### [facility] [address] [place] [address] Dr. Jameel Odell MCV (RBC) [Entitic vol] 94.0 fL Normal 81.0-99.0 [facility] Comment on above: Performed By: #### C BC #### [facility] [address] [place] [address] Dr. Jameel Odell MONO # 0.5 103/ul Normal 0.3-0.8 [facility] Comment on above: Performed By: #### C BC #### [facility] [address] [place] [address] Dr. Jameel Odell Monocytes/100 WBC (Bld) 4.1 % Normal 1.7-12.0 [facility] Comment on above: Performed By: #### C BC #### [facility] [address] [place] [address] Dr. Jameel Odell NEUT # 8.1 103/ul Critically high 1.4-6.5 [facility] Comment on above: Performed By: #### C BC #### [facility] [address] [place] [address] Dr. Jameel Odell Neutrophils/100 WBC (Bld) 68.9 % Normal 43.0-75.0 [facility] Comment on above: Performed By: #### C BC #### [facility] [address] [place] [address] Dr. Jameel Odell Platelet mean volume (Bld) [Entitic vol] 11.4 fL Normal 9.5-13.5 [facility] Comment on above: Performed By: #### C BC #### [facility] [address] [address] [address] Jameel Odell PLT 330 103/ul Normal 150-450 [facility] Comment on above: Performed By: #### C BC #### [facility] [address] [address] [address] Jameel Odell RBC 4.87 106/ul Normal 4.20-5.40 [facility] Comment on above: Performed By: #### C BC #### [facility] [address] [address] [address] Jameel Odell WBC 11.8 103/ul Critically high 4.0-11.0 [facility] Comment on above: Performed By: #### C BC #### [facility] [address] [place] [address] Dr. Jameel Odell GLYCOHEMOGLOBIN A1Con 2021 ADA RECOMMENDATION SEE BELOW Normal [facility] Comment on above: Result Comment: ADA RECOMMENDED LIMIT 4.0 - 6.0 ADA THERAPEUTIC TARGET < 7.0 ACTION SUGGESTED > 7.0 Performed By: #### P REG #### [facility] [address] [address] [address] Jameel Odell Glucose [Mass/Vol] 146 mg/dL Normal [facility] Comment on above: Performed By: #### P REG #### [facility] [address] [place] [address] Dr. Jameel Odell HbA1c (Bld) [Mass fraction] 6.7 % Critically high 4.5-6.2 [facility] Comment on above: Performed By: #### P REG #### [facility] [address] [address] [address] Jameel Odell LIPID PROFILEon 03-21-2022 CHOL-HDL RATIO NORM SEE BELOW Normal [facility] Comment on above: Result Comment: 3.3 - 4.4 LOW RISK 4.4 - 7.1 AVERAGE RISK 7.1 - 11.0 MODERATE RISK >11.0 HIGH RISK Performed By: #### L IPID, BMP, TSH, LIVER #### [facility] [address] [address] [address] Jameel Odell Cholesterol [Mass/Vol] 141 mg/dL Normal <=200 [facility] Comment on above: Performed By: #### L IPID, BMP, TSH, LIVER #### [facility] [address] [address] [address] Jameel Odell Cholesterol in HDL [Mass/Vol] 36 mg/dL Critically low 40-60 [facility] Comment on above: Performed By: #### L IPID, BMP, TSH, LIVER #### [facility] [address] [address] [address] Jameel Odell Cholesterol in LDL [Mass/Vol] 72.6 mg/dL Normal [facility] Comment on above: Performed By: #### L IPID, BMP, TSH, LIVER #### [facility] [address] [address] [address] Jameel Odell Cholesterol.total/Chol esterol in HDL [Mass ratio] 3.9 {ratio} Normal [facility] Comment on above: Performed By: #### L IPID, BMP, TSH, LIVER #### [facility] [address] [address] [address] Jameel Odell HDL NORMAL > or = 60 mg/dl - LO W CARDIOVASCULAR RISK <40 mg/dl - HIGH CARDIOVASCULAR RISK Normal [facility] Comment on above: Performed By: #### L IPID, BMP, TSH, LIVER #### [facility] [address] [address] [address] Jameel Odell LDL CALC NORMAL SEE BELOW Normal [facility] Comment on above: Result Comment: <100 mg/dl OPTIMAL 100 - 129 mg/dl NEAR OR ABOVE OPTIMAL 130 - 159 mg/dl BORDERLINE HIGH 160 - 189 mg/dl HIGH >190 mg/dl VERY HIGH Performed By: #### L IPID, BMP, TSH, LIVER #### [facility] [address] [address] [address] Jameel Odell Triglyceride [Mass/Vol] 162 mg/dL Critically high <=150 [facility] Comment on above: Performed By: #### L IPID, BMP, TSH, LIVER #### [facility] [address] [address] [address] Jameel Odell VLDL CALC 32.4 mg/dL Normal [facility] Comment on above: Performed By: #### L IPID, BMP, TSH, LIVER #### [facility] [address] [address] [address] Jameel Odell LIVER PROFILEon 03-21-2022 Albumin [Mass/Vol] 3.8 g/dL Normal 3.4-5.0 [facility] Comment on above: Performed By: #### L IPID, BMP, TSH, LIVER #### [facility] [address] [address] [address] Jameel Odell Albumin/Globulin [Mass ratio] 0.9 {ratio} Normal [facility] Comment on above: Performed By: #### L IPID, BMP, TSH, LIVER #### [facility] [address] [place] [address] Dr. Jameel Odell ALP [Catalytic activity/Vol] 70 U/L Normal 46-116 [facility] Comment on above: Performed By: #### L IPID, BMP, TSH, LIVER #### [facility] [address] [place] [address] Dr. Jameel Odell ALT [Catalytic activity/Vol] 42 U/L Normal 14-59 [facility] Comment on above: Performed By: #### L IPID, BMP, TSH, LIVER #### [facility] [address] [place] [address] Dr. Jameel Odell AST [Catalytic activity/Vol] 24 U/L Normal 15-37 [facility] Comment on above: Performed By: #### L IPID, BMP, TSH, LIVER #### [facility] [address] [place] [address] Dr. Jameel Odell BILI, CONJUGATED 0.1 mg/dL Normal 0.0-0.2 [facility] Comment on above: Performed By: #### L IPID, BMP, TSH, LIVER #### [facility] [address] [place] [address] Dr. Jameel Odell Bilirubin [Mass/Vol] 0.4 mg/dL Normal 0.2-1.0 [facility] Comment on above: Performed By: #### L IPID, BMP, TSH, LIVER #### [facility] [address] [address] [address] Jameel Odell Globulin (S) [Mass/Vol] 4.1 g/dL Normal [facility] Comment on above: Performed By: #### L IPID, BMP, TSH, LIVER #### [facility] [address] [place] [address] Dr. Jameel Odell Protein [Mass/Vol] 7.9 g/dL Normal 6.4-8.2 [facility] Comment on above: Performed By: #### L IPID, BMP, TSH, LIVER #### [facility] [address] [place] [address] Dr. Jameel Odell PROF CHEM 8 (BAS METB)on Anion gap [Moles/Vol] 9.4 mmol/L Normal [facility] Comment on above: Performed By: #### L IPID, BMP, TSH, LIVER #### [facility] [address] [place] [address] Dr. Jameel Odell Calcium [Mass/Vol] 9.3 mg/dL Normal 8.5-10.1 [facility] Comment on above: Performed By: #### L IPID, BMP, TSH, LIVER #### [facility] [address] [place] [address] Dr. Jameel Odell Chloride [Moles/Vol] 104 mmol/L Normal 98-107 [facility] Comment on above: Performed By: #### L IPID, BMP, TSH, LIVER #### [facility] [address] [place] [address] Dr. Jameel Odell CO2 [Moles/Vol] 27.2 mmol/L Normal 21.0-32.0 [facility] Comment on above: Performed By: #### L IPID, BMP, TSH, LIVER #### [facility] [address] [place] [address] Dr. Jameel Odell Creatinine [Mass/Vol] 0.80 mg/dL Normal 0.55-1.02 [facility] Comment on above: Performed By: #### L IPID, BMP, TSH, LIVER #### [facility] [address] [address] [address] Jameel Odell EGFR-AF FINNISH >60 Normal >=60 [facility] Comment on above: Performed By: #### L IPID, BMP, TSH, LIVER #### [facility] [address] [place] [address] Dr. Jameel Odell EGFR-NON AF FINNISH >60 Normal >=60 [facility] Comment on above: Performed By: #### L IPID, BMP, TSH, LIVER #### [facility] [address] [place] [address] Dr. Jameel Odell Glucose [Mass/Vol] 189 mg/dL Critically high 74-106 [facility] Comment on above: Performed By: #### L IPID, BMP, TSH, LIVER #### [facility] [address] [place] [address] Dr. Jameel Odell Potassium [Moles/Vol] 4.6 mmol/L Normal 3.5-5.1 [facility] Comment on above: Performed By: #### L IPID, BMP, TSH, LIVER #### [facility] [address] [place] [address] Dr. Jameel Odell Sodium [Moles/Vol] 136 mmol/L Normal 136-145 [facility] Comment on above: Performed By: #### L IPID, BMP, TSH, LIVER #### [facility] [address] [place] [address] Dr. Jameel Odell Urea nitrogen [Mass/Vol] 9.0 mg/dL Normal 7.0-18.0 [facility] Comment on above: Performed By: #### L IPID, BMP, TSH, LIVER #### [facility] [address] [place] [address] Dr. Jameel Odell Urea nitrogen/Creatinine [Mass ratio] 11.2 mg/mg Normal [facility] Comment on above: Performed By: #### L IPID, BMP, TSH, LIVER #### [facility] [address] [place] [address] Dr. Jameel Odell TSHon 03-21-2022 TSH 0.862 uIU/mL Normal 0.358-3.740 [facility] Comment on above: Performed By: #### L IPID, BMP, TSH, LIVER #### [facility] [address] [place], [place] [address] Dr. Jameel Odell VITAMIN D 25 OHon 03-21-2022 VIT D 25-OH 30.9 ng/mL Normal [facility] Comment on above: Performed By: #### P REG #### [facility] [address] [address] [address] Jameel Odell VIT D RANGES SEE BELOW Normal [facility] Comment on above: Result Comment: <20 ng/mL Vit D deficient 20 - <30 ng/mL Vit D insufficient 30 - 100 ng/mL Vit D sufficient >100 ng/mL Potential Toxicity Performed By: #### P REG #### [facility] [address] [address] [address] Jameel Odell CBC with Auto Differentialon 03-11-2022 Absolute Eos # 0.43 ETNA S [facility] Absolute Immature Granulocyte 0.11 [facility] Absolute Lymph # 3.53 [facility] URS [facility] Absolute Webster # 0.64 [facility] Basophils (Bld) [#/Vol] 0.21 10*3/uL High [facility] Basophils/100 WBC (Bld) 2 % 0 - 2 % [facility] Eosinophils/100 WBC (Bld) 4 % 1 - 4 % [facility] Hematocrit (Bld) [Volume fraction] 42.0 % 36.3 - 47.1 % [facility] Hemoglobin (Bld) [Mass/Vol] 14.4 g/dL 11.9 - 15.1 g/dL [facility] Immature granulocytes/100 WBC (Bld) 1 % High 0 [facility] Interpretation and review of laboratory results Abnormal [facility] Lymphocytes/100 WBC (Bld) 33 % 24 - 43 % [facility] MCH (RBC) [Entitic mass] 31.0 pg 25.2 - 33.5 pg [facility] MCHC (RBC) [Mass/Vol] 34.3 g/dL 28.4 - 34.8 g/dL [facility] MCV (RBC) [Entitic vol] 90.3 fL 82.6 - 102.9 fL [facility] Monocytes/100 WBC (Bld) 6 % 3 - 12 % [facility] Morphology Kenan (Bld) [Interp] Normal [facility] NRBC Automated 0.0 0.0 per 100 WBC [facility] Platelet distribution width (Bld) [Ratio] 12.6 % 11.8 - 14.4 % [facility] Platelet mean volume (Bld) [Entitic vol] 10.2 fL 8.1 - 13.5 fL [facility] Platelets (Bld) [#/Vol] 316 10*3/uL [facility] Promyelocytes 1 % High 0 [facility] Promyelocytes Absolute 0.11 High 0 k/uL [facility] RBC (Bld) [#/Vol] 4.65 10*6/uL 3.95 - 5.1 1 m/uL [facility] Segmented neutrophils/100 WBC (Bld) 53 % 36 - 65 % [facility] Segs Absolute 5.67 [facility] WBC (Bld) [#/Vol] 10.7 10*3/uL [facility] COVID-19, Rapidon 03-11-2022 SARS-CoV-2 (COVID-19) RNA ABRAHAM+probe Ql (Unsp spec) Not detected Not Detected [facility] Comment on above: Rapid NAAT: The [...] management decisions. Fact sheet for Healthcare Providers: https://www.fda.gov/media/007632/download Fact sheet for Patients: https://www.fda.gov/media/044116/download Methodology: Isothermal Nucleic Acid Amplification Specimen Description .NASOPHARYNGEAL SWAB [facility] ABDOMEN PELVIS W IV CONTR AST Additional Contrast? Noneon 03-11-2022 1. No acute abnormality identified. Normal appendix. 2. Hepatomegaly with steatosis. [facility] EXAMINATION: CT OF THE ABDOMEN AND [...] COMPARISON: 08/27/2020 HISTORY: ORDERING SYSTEM PROVIDED HISTORY: RLQ abdominal pain TECHNOLOGIST PROVIDED HISTORY: RLQ abdominal [...] No lymphadenopathy. Bones/Soft Tissues: No abnormality identified. [facility] Ronaldo Marinelli MD - 03/11/2022 EXAMINATION: [...] COMPARISON: 08/27/2020 HISTORY: ORDERING SYSTEM PROVIDED HISTORY: RLQ abdominal pain TECHNOLOGIST PROVIDED HISTORY: RLQ abdominal [...] identified. Normal appendix. 2. Hepatomegaly with steatosis. [employer] Work Phone: Radiology Study observation (narrative) [employer] Work Phone: CT ABDOMEN PELVIS W IV CONTR AST Additional Contrast? NoneOrdered By: Ronaldo Marinelli on 03-11-2022 [employer] Work Phone: Comprehensive Metabolic Pane l w/ Reflex to MGon 03-11-2022 Albumin [Mass/Vol] 4.5 g/dL 3.5 - 5.2 g/dL [facility] Albumin/Globulin [Mass ratio] 1.6 {ratio} [facility] ALP (Bld) [Catalytic activity/Vol] 72 U/L 35 - 104 U/L [facility] ALT [Catalytic activity/Vol] 45 U/L High 5 - 33 U/L [facility] Anion gap [Moles/Vol] 11 mmol/L 9 - 17 mmol/L [facility] AST [Catalytic activity/Vol] 27 U/L <32 [facility] Bilirubin [Mass/Vol] 0.41 mg/dL 0.3 - 1 .2 mg/dL [facility] Calcium [Mass/Vol] 9.5 mg/dL 8.6 - 10. 4 mg/dL [facility] Chloride [Moles/Vol] 105 mmol/L 98 - 10 7 mmol/L [facility] CO2 [Moles/Vol] 24 mmol/L 20 - 31 mmol/L [facility] Creatinine [Mass/Vol] 0.6 mg/dL 0.50 - 0.90 mg/dL [facility] Free PSA/Total PSA [Mass fraction] 7.3 g/dL 6.4 - 8.3 g/dL [facility] GFR >60 >60 mL/min [facility] GFR Non- >60 >60 mL/min [facility] Glucose [Mass/Vol] 201 mg/dL High 70 - 99 mg/dL [facility] Interpretation and review of laboratory results Abnormal [facility] Potassium [Moles/Vol] 4.2 mmol/L 3.7 - 5.3 mmol/L [facility] Sodium [Moles/Vol] 140 mmol/L 135 - 144 mmol/L [facility] Urea nitrogen (BldV) [Mass/Vol] 10 mg/dL 6 - 20 mg/dL [facility] Urea nitrogen/Creatinine (Bld) [Mass ratio] 17 [facility] Laboratory - Chemistry and C hemistry - challengeon 03-11-2022 GFR/1.73 sq M.predicted MDRD (S/P/Bld) [Vol rate/Area] [facility] Comment on above: Average GFR for 20-2 9 years old: 116 mL/min/1.73sq m Chronic Kidney Disease: <60 mL/min/1.73sq m Kidney failure: <15 mL/min/1.73sq m eGFR calculated using average adult body mass. Additional eGFR calculator available at: http://www.Seed[employer]Spark.Meme/multiple_crcl_2011.htm Stage 1: Some kidney damage normal GFR Stage 2: Mild kidney damage GFR 60-89 Stage 3: Moderate kidney damage GFR 30-59 Stage 4: Severe kidney damage GFR 15-29 Stage 5: Severe kidney damage GFR <15 ESRD - chronic treatment by dialysis or transplant , Urineon 2 Beta HCG ( test) Ql (U) Negative NEGATIVE [facility] Comment on above: Specimens with hCG l evels near the threshold of the test (25 mIU/mL) may give a negative or indeterminate result. In such cases, another test should be performed with a new specimen in 48-72 hours. If early is suspected clinically in this setting, correlation with quantitative serum b-hCG level is suggested. [employer] has confirmed the use of plasma for this test. This has not been cleared or approved by the U.S. Food and Drug Administration. The FDA has determined that such clearance is not necessary. [facility] Urinalysis with Microscopico n 03-11-2022 - [facility] Bilirubin Urine Negative NEGATIVE [facility] Color, UA Yellow Yellow [facility] Epithelial Cells UA 2 TO 5 [facility] Glucose, Ur TRACE Abnormal NEGATIVE [facility] Interpretation and review of laboratory results Abnormal [facility] Ketones Ql (U) Negative NEGATIVE [facility] Leukocyte esterase Test strip Ql (U) Negative NEGATIVE [facility] Nitrite, Urine Negative NEGATIVE [facility] pH, UA 7.0 [facility] Protein, UA Negative NEGATIVE [facility] RBC, UA 0 TO 2 [facility] Specific Onyx, UA 1.020 [facility] Turbidity UA Clear Clear [facility] Urine Hgb Negative NEGATIVE [facility] Urobilinogen, Urine Normal Normal [facility] WBC, UA 0 TO 2 [facility] XR RADIUS ULNA RIGHT (2 VIEW S)on 01-04-2022 1. No acute fracture or malalignment. [facility] EXAMINATION: TWO XRAY VIEWS OF THE RIGHT FOREARM 01/04/2022 7:39 pm COMPARISON: None. HISTORY: ORDERING SYSTEM PROVIDED HISTORY: trauma TECHNOLOGIST PROVIDED HISTORY: trauma FINDINGS: No acute fracture or malalignment. No significant degenerative changes. Soft tissues unremarkable. [facility] Efra Gomez MD - 01/04/2022 EXAMINATION: TWO XRAY VIEWS OF THE RIGHT FOREARM 01/04/2022 7:39 pm COMPARISON: None. HISTORY: ORDERING SYSTEM PROVIDED HISTORY: trauma TECHNOLOGIST PROVIDED HISTORY: trauma FINDINGS: No acute fracture or malalignment. No significant degenerative changes. Soft tissues unremarkable. IMPRESSION: 1. No acute fracture or malalignment. [employer] Work Phone: Radiology Study observation (narrative) [employer] Phone: XR RADIUS ULNA RIGHT (2 VIEW S)Ordered By: Efra Gomez on 01-04-2022 [employer] Phone: XR WRIST RIGHT (MIN 3 VIEWS) on 01-04-2022 1. No acute fracture or malalignment. [facility] EXAMINATION: XRAY VIEWS OF THE RIGHT WRIST 01/04/2022 7:39 pm COMPARISON: None. HISTORY: ORDERING SYSTEM PROVIDED HISTORY: trauma TECHNOLOGIST PROVIDED HISTORY: trauma FINDINGS: No acute fracture or malalignment. No significant degenerative changes. Soft tissues unremarkable. [facility] Efra Gomez MD - 01/04/2022 EXAMINATION: XRAY VIEWS OF THE RIGHT WRIST 01/04/2022 7:39 pm COMPARISON: None. HISTORY: ORDERING SYSTEM PROVIDED HISTORY: trauma TECHNOLOGIST PROVIDED HISTORY: trauma FINDINGS: No acute fracture or malalignment. No significant degenerative changes. Soft tissues unremarkable. IMPRESSION: 1. No acute fracture or malalignment. [employer] Phone: [employer] Phone: Radiology Study observation (narrative) [employer] Phone: Glucose, Whole Bloodon 12-05 Glucose [Mass/Vol] 259 mg/dL High 74 - 100 mg/dL [employer] Interpretation and review of laboratory results Abnormal [employer] Glucose [Mass/Vol] 239 mg/dL High 74 - 100 mg/dL [employer] Interpretation and review of laboratory results Abnormal [employer] POCT glucoseOrdered By: Terra Tafoya on 12-05-2021 Glucose [Mass/Vol] 259 mg/dL [employer] Interpretation and review of laboratory results Abnormal [employer] COVID-19, Rapidon 09-06-2021 SARS-CoV-2 (COVID-19) RNA ABRAHAM+probe Ql (Unsp spec) Not detected Not Detected [employer] Comment on above: Rapid NAAT: The specimen [...] management decisions. Fact sheet for Healthcare Providers: https://www.fda.gov/media/878330/download Fact sheet for Patients: https://www.fda.gov/media/249358/download Methodology: Isothermal Nucleic Acid Amplification Specimen Description .NASOPHARYNGEAL SWAB [employer] XR CHEST (2 VW)Ordered By: Jessica Ryan on 06-02-2021 No acute cardiopulmonary disease [employer] Phone: EXAMINATION: TWO XRA Y VIEWS OF THE CHEST 06/02/2021 4:22 pm COMPARISON: 06/13/2020 HISTORY: ORDERING SYSTEM PROVIDED HISTORY: cough TECHNOLOGIST PROVIDED HISTORY: cough FINDINGS: There is suboptimal inspiration. The cardiac size is normal. No acute infiltrates or pleural effusions are seen. Pulmonary vascularity appears normal. . . No acute bony abnormalities. The hilar structures are normal. [employer] Phone: [place], [facility] Incoming Radiant Results From [employer]/[facility] [employer] - 06/02/2021 7:32 PM EDT EXAMINATION: TWO [...] are normal. IMPRESSION: No acute cardiopulmonary disease [employer] Phone: [employer] Phone: FL UGI W AIR CONTRASTOrdered By: Yossi Golden on 05-26-2021 Mild spontaneous gastroesophageal reflux in otherwise unremarkable slightly limited (poor gastric mucosal coating) upper GI fluoroscopic evaluation. [employer] Phone: EXAMINATION: DOUBLE CONTRAST UPPER GI SERIES [...] The duodenal bulb and sweep are normal. [employer] Phone: [facility], [facility] Incoming Radiant Results From [employer]by - 05/26/2021 12:00 PM EDT EXAMINATION: DOUBLE [...] gastric mucosal coating) upper GI fluoroscopic evaluation. [employer] Phone: [employer] Phone: AmylaseOrdered By: Yossi hector on 05-16-2021 Amylase [Catalytic activity/Vol] 54 U/L 28 - 100 U/L [employer] Phone: Basic Metabolic PanelOrdered By: Yossi Golden on 05-16-2021 Anion gap [Moles/Vol] 15 mmol/L 9 - 17 mmol/L [employer] Phone: Calcium [Mass/Vol] 9.8 mg/dL 8.6 - 10. 4 mg/dL [employer] Phone: Chloride [Moles/Vol] 101 mmol/L 98 - 10 7 mmol/L [employer] Phone: CO2 [Moles/Vol] 19 mmol/L Low 20 - 31 mmol/L [employer] Phone: Creatinine [Mass/Vol] 0.67 mg/dL 0.50 - 0.90 mg/dL [employer] Phone: GFR >60 >60 mL/min [employer] Phone: GFR Non- >60 >60 mL/min [employer] Phone: Glucose [Mass/Vol] 316 mg/dL High 70 - 99 mg/dL [employer] Phone: Potassium [Moles/Vol] 4.3 mmol/L 3.7 - 5.3 mmol/L [employer] Phone: Sodium [Moles/Vol] 135 mmol/L 135 - 144 mmol/L [employer] Phone: Urea nitrogen (BldV) [Mass/Vol] 11 mg/dL 6 - 20 mg/dL [employer] Phone: Urea nitrogen/Creatinine (Bld) [Mass ratio] 16 [employer] Phone: CBC Auto DifferentialOrdered By: Yossi Golden on 05-16-2021 [employer] # 0.13 [employer] Work Phone: Absolute Immature Granulocyte 0.05 [employer] Phone: [employer] Lymph # 3.11 [employer] [facility] Work Phone: [employer] Webster # 0.54 [employer] [facility] Work Phone: Basophils (Bld) [#/Vol] 0.04 10*3/uL [employer] Work Phone: Basophils/100 WBC (Bld) 0 % 0 - 2 % [employer] Work Phone: Differential Type NOT REPORTED [employer] Phone: Eosinophils/100 WBC (Bld) 1 % 1 - 4 % [employer] Phone: Hematocrit (Bld) [Volume fraction] 42.8 % 36.3 - 47.1 % [employer] Phone: Hemoglobin.gastrointes tinal spec 1 Ql (Stl) 14.6 g/dL 11.9 - 15.1 g/dL [employer] Phone: Immature granulocytes/100 WBC (Bld) 1 % High 0 [employer] Phone: Interpretation and review of laboratory results Abnormal [employer] Phone: Lymphocytes/100 WBC (Bld) 32 % 24 - 43 % [employer] Phone: MCH (RBC) [Entitic mass] 30.9 pg 25.2 - 33.5 pg [employer] Phone: MCHC (RBC) [Mass/Vol] 34.1 g/dL 28.4 - 34.8 g/dL [employer] Phone: MCV (RBC) [Entitic vol] 90.5 fL 82.6 - 102.9 fL [employer] Phone: Monocytes/100 WBC (Bld) 6 % 3 - 12 % [employer] Phone: NRBC Automated 0.0 0.0 per 100 WBC [employer] Phone: Platelet distribution width (Bld) [Ratio] 12.8 % 11.8 - 14.4 % [employer] Phone: Platelet Estimate NOT REPORTED [employer] Phone: Platelet mean volume (Bld) [Entitic vol] 10.9 fL 8.1 - 13.5 fL [employer] Phone: Platelets (Bld) [#/Vol] 283 10*3/uL [employer] Phone: RBC (Bld) [#/Vol] 4.73 10*6/uL 3.95 - 5.1 1 m/uL [employer] Phone: RBC (Bld) [#/Vol] NOT REPORTED [employer] Phone: Segmented neutrophils/100 WBC (Bld) 60 % 36 - 65 % [employer] Phone: Segs [employer] 6[employer] Work Phone: WBC (Bld) [#/Vol] 9.9 10*3/uL [employer] Phone: WBC (Bld) [#/Vol] NOT REPORTED [employer] Phone: [employer] Phone: Hepatic Function PanelOrdere d By: Yossi Golden on 05-16-2021 Albumin [Mass/Vol] 4.4 g/dL 3.5 - 5.2 g/dL [employer] Phone: Albumin/Globulin [Mass ratio] 1.4 {ratio} [employer] Phone: ALP (Bld) [Catalytic activity/Vol] 81 U/L 35 - 104 U/L [employer] Phone: ALT [Catalytic activity/Vol] 32 U/L 5 - 33 U/L [employer] Phone: AST [Catalytic activity/Vol] 32 U/L High <32 [employer] Phone: Bilirubin [Mass/Vol] 0.41 mg/dL 0.3 - 1 .2 mg/dL [employer] Phone: Bilirubin, Indirect CANNOT BE CALCULATED 0.00 - 1.00 mg/dL [employer] Phone: Bilirubin.indirect [Mass/Vol] mg/dL <0.31 mg/dL [employer] Phone: Free PSA/Total PSA [Mass fraction] 7.5 g/dL 6.4 - 8.3 g/dL [employer] Phone: Globulin NOT REPORTED 1.5 - 3.8 g/dL [employer] Phone: Laboratory - Chemistry and C hemistry - challengeOrdered By: Yossi Golden on 05-16-2021 GFR/1.73 sq M.predicted MDRD (S/P/Bld) [Vol rate/Area] [employer] Phone: Comment on above: Average GFR for 20-2 9 years old: 116 mL/min/1.73sq m Chronic Kidney Disease: <60 mL/min/1.73sq m Kidney failure: <15 mL/min/1.73sq m eGFR calculated using average adult body mass. Additional eGFR calculator available at: http://www.Seed[employer]Spark.Meme/multiple_crcl_2011.htm Stage 1: Some kidney damage normal GFR Stage 2: Mild kidney damage GFR 60-89 Stage 3: Moderate kidney damage GFR 30-59 Stage 4: Severe kidney damage GFR 15-29 Stage 5: Severe kidney damage GFR <15 ESRD - chronic treatment by dialysis or transplant LipaseOrdered By: Yossi reyes on 05-16-2021 Lipase [Catalytic activity/Vol] 58 U/L 13 - 60 U/L [employer] Phone: No Panel InformationOrdered By: Yossi Golden on 05-16-2021 Interpretation and review of laboratory results Abnormal [facility] Work Phone: [employer] Work Phone: Otheron 09-25-2020 L4-5 central/right paracentral disc extrusion abutting descending L5 nerve root but not causing significant canal or neural foraminal compromise. Small disc protrusions T7-8 and T8-9. [facility] [place] [facility]: MRI OF THE LUMBAR SPINE WITHOUT [...] spinal canal stenosis or neural foraminal narrowing[facility] [place] [facility], [employer] Incoming Radiant Results From [employer]/[facility] - 09/25/2020 12:18 AM EST EXAMINATION: MRI [...] compromise. Small disc protrusions T7-8 and T8-9. [facility], [place] APTTon 09-24-2020 aPTT Coag (Bld) [Time] 23.3 s [place], [place] Comment on above: IV Heparin Therapy Range: 62.0-94.0 Interpretation and review of laboratory results Abnormal [place], [place] CBC Auto Differentialon Basophils (Bld) [#/Vol] 0.00 10*3/uL [place] Basophils/100 WBC (Bld) 0 % 0 - 2 % [place] Differential Type NOT REPORTED [place] Eosinophils (Bld) [#/Vol] 0.12 10*3/uL [place] Eosinophils/100 WBC (Bld) 1 % 1 - 4 % [place] Erythrocyte distribution width (RBC) [Ratio] 13.6 % 11.8 - 14.4 % [place] Hematocrit (Bld) [Volume fraction] 41.4 % 36.3 - 47.1 % [place] Hemoglobin (Bld) [Mass/Vol] 13.4 g/dL 11.9 - 15.1 g/dL [place] Immature granulocytes (Bld) [#/Vol] 0 % 0 [place] Immature granulocytes (Bld) [#/Vol] 0.00 10*3/uL [place] Interpretation and review of laboratory results Abnormal [place] Lymphocytes (Bld) [#/Vol] 4.28 10*3/uL High [place] Lymphocytes/100 WBC (Bld) 36 % 24 - 43 % [place] MCH (RBC) [Entitic mass] 27.5 pg 25.2 - 33.5 pg [place] MCHC (RBC) [Mass/Vol] 32.4 g/dL 28.4 - 34.8 g/dL [place] MCV (RBC) [Entitic vol] 84.8 fL 82.6 - 102.9 fL [place] Monocytes (Bld) [#/Vol] 0.71 10*3/uL [place] Monocytes/100 WBC (Bld) 6 % 3 - 12 % [place] Morphology Kenan (Bld) [Interp] Normal [place] Platelet mean volume (Bld) [Entitic vol] 10.0 fL 8.1 - 13.5 fL [place] Platelets (Bld) [#/Vol] NOT REPORTED [place] Platelets (Bld) [#/Vol] 322 10*3/uL [place] RBC (Bld) [#/Vol] 4.88 10*6/uL 3.95 - 5.1 1 m/uL [place] RBC morphology finding Nom (Bld) NOT REPORTED [place] Segmented neutrophils/100 WBC (Bld) 57 % 36 - 65 % [place] Segs [employer] 6.79 [place] WBC (Bld) [#/Vol] 0.0 10*3/uL 0.0 per 10 0 WBC [place] WBC (Bld) [#/Vol] 11.9 10*3/uL [place] WBC Morphology NOT REPORTED [place] Comprehensive Metabolic Pane l w/ Reflex to MGon 09-24-2020 Albumin [Mass/Vol] 4.2 g/dL 3.5 - 5.2 g/dL [place] Albumin/Globulin [Mass ratio] 1.3 {ratio} [place] ALP [Catalytic activity/Vol] 71 U/L 35 - 104 U/L [place] ALT [Catalytic activity/Vol] 20 U/L 5 - 33 U/L [place] Anion gap [Moles/Vol] 10 mmol/L 9 - 17 mmol/L [place] AST [Catalytic activity/Vol] 20 U/L <32 [place] Bilirubin Ql (U) 0.34 mg/dL 0.3 - 1.2 mg/dL [place] Bun/Cre Ratio 22 High [place] Calcium [Mass/Vol] 9.4 mg/dL 8.6 - 10. 4 mg/dL [place] Chloride [Moles/Vol] 101 mmol/L 98 - 10 7 mmol/L [place] CO2 [Moles/Vol] 26 mmol/L 20 - 31 mmol/L [place] Creatinine [Mass/Vol] 0.6 mg/dL 0.5 - 0.9 mg/dL [place] GFR >60 >60 mL/min [place] GFR Non- >60 >60 mL/min [place] Glucose [Mass/Vol] 117 mg/dL High 70 - 99 mg/dL [place] Interpretation and review of laboratory results Abnormal [place] Potassium [Moles/Vol] 4.2 mmol/L 3.7 - 5.3 mmol/L [place] Protein [Mass/Vol] 7.5 g/dL 6.4 - 8.3 g/dL [place] Sodium [Moles/Vol] 137 mmol/L 135 - 144 mmol/L [place] Urea nitrogen [Mass/Vol] 13 mg/dL 6 - 20 mg/dL [place] Metabolic Panelon 09-24-2020 GFR/1.73 sq M predicted among non-blacks MDRD (S/P/Bld) [Vol rate/Area] [place], [place] Comment on above: Average GFR for 20-2 9 years old: 116 mL/min/1.73sq m Chronic Kidney Disease: <60 mL/min/1.73sq m Kidney failure: <15 mL/min/1.73sq m eGFR calculated using average adult body mass. Additional eGFR calculator available at: http://www.[employer]/multiple_crcl_2011.htm Stage 1: Some kidney damage normal GFR Stage 2: Mild kidney damage GFR 60-89 Stage 3: Moderate kidney damage GFR 30-59 Stage 4: Severe kidney damage GFR 15-29 Stage 5: Severe kidney damage GFR <15 ESRD - chronic treatment by dialysis or transplant Protime-INRon 09-24-2020 INR Coag (PPP) [Relative time] 1.0 {INR} [place], [place] Comment on above: Non-therapeutic Range: INR = 0.9-1.2 Therapeutic Range: Moderate Anticoagulant Intensity: INR = 2.0-3.0 High Anticoagulant Intensity: INR = 2.5-3.5 PT Coag (PPP) [Time] 12.7 s [place] CT LUMBAR SPINE WO CONTRASTo n 09-17-2020 Small disc herniatio n at L4-L5 with abutment of the descending L5 nerve roots. This appears similar compared to recent abdominal CT 08/27/2020. Disc bulge at L5-S1 also appears similar No acute bony abnormality [place], [place] EXAMINATION: CT OF T HE LUMBAR [...] stenosis SOFT TISSUES/RETROPERITONEU M: No retroperitoneal adenopathy. [place], [employer] Incoming Radiant Results From [employer] - 09/17/2020 7:13 PM EST EXAMINATION: CT [...] also appears similar No acute bony abnormality [place] CBC Auto Differentialon Basophils (Bld) [#/Vol] 0.04 10*3/uL [place] Basophils/100 WBC (Bld) 1 % 0 - 2 % [place] Differential Type NOT REPORTED [place] Eosinophils (Bld) [#/Vol] 0.11 10*3/uL [place] Eosinophils/100 WBC (Bld) 1 % 1 - 4 % [place] Erythrocyte distribution width (RBC) [Ratio] 13.6 % 11.8 - 14.4 % [place] Hematocrit (Bld) [Volume fraction] 41.7 % 36.3 - 47.1 % [place] Hemoglobin (Bld) [Mass/Vol] 13.0 g/dL 11.9 - 15.1 g/dL [place] Immature granulocytes (Bld) [#/Vol] 0 % 0 [place] Immature granulocytes (Bld) [#/Vol] 0.03 10*3/uL [place] Interpretation and review of laboratory results Abnormal [place] Lymphocytes (Bld) [#/Vol] 3.63 10*3/uL [place] Lymphocytes/100 WBC (Bld) 47 % High 24 - 43 % [place] MCH (RBC) [Entitic mass] 27.4 pg 25.2 - 33.5 pg [place] MCHC (RBC) [Mass/Vol] 31.2 g/dL 28.4 - 34.8 g/dL [place] MCV (RBC) [Entitic vol] 87.8 fL 82.6 - 102.9 fL [place] Monocytes (Bld) [#/Vol] 0.48 10*3/uL [place] Monocytes/100 WBC (Bld) 6 % 3 - 12 % [place] Platelet mean volume (Bld) [Entitic vol] 9.7 fL 8.1 - 13.5 fL [place] Platelets (Bld) [#/Vol] 345 10*3/uL [place] Platelets (Bld) [#/Vol] NOT REPORTED [place] RBC (Bld) [#/Vol] 4.75 10*6/uL 3.95 - 5.1 1 m/uL [place] RBC morphology finding Nom (Bld) NOT REPORTED [place] Segmented neutrophils/100 WBC (Bld) 45 % 36 - 65 % [place] Segs Absolute 3.46 [place] WBC (Bld) [#/Vol] 0.0 10*3/uL 0.0 per 10 0 WBC [place] WBC (Bld) [#/Vol] 7.8 10*3/uL [place] WBC Morphology NOT REPORTED [place] ABDOMEN PELVIS W IV CONTR AST Additional Contrast? Noneon 08-27-2020 EXAMINATION: [facility] OF [facility] ABDOMEN AND PELVIS WITH CONTRAST 08/27/2020 1:18 [...] change. Abdominal wall demonstrates no acute findings. [place] 1. No acute intra-abdominal process. 2. Borderline hepatosplenomegaly. 3. Fibroid uterus. [place], [employer] Incoming Radiant Results From [employer]/[facility] - 08/27/2020 1:39 PM EST EXAMINATION: CT [...] process. 2. Borderline hepatosplenomegaly. 3. Fibroid uterus. [place] Comprehensive Metabolic Pane mando 08-27-2020 Albumin [Mass/Vol] 4.4 g/dL 3.5 - 5.2 g/dL [place] Albumin/Globulin [Mass ratio] 1.3 {ratio} [place] ALP [Catalytic activity/Vol] 77 U/L 35 - 104 U/L [place] ALT [Catalytic activity/Vol] 27 U/L 5 - 33 U/L [place] Anion gap [Moles/Vol] 9 mmol/L 9 - 17 mmol/L [place] AST [Catalytic activity/Vol] 23 U/L <32 [place] Bilirubin Ql (U) 0.29 mg/dL Low 0.3 - 1.2 mg/dL [place] Bun/Cre Ratio 13 [place] Calcium [Mass/Vol] 9.6 mg/dL 8.6 - 10. 4 mg/dL [place] Chloride [Moles/Vol] 102 mmol/L 98 - 10 7 mmol/L [place] CO2 [Moles/Vol] 26 mmol/L 20 - 31 mmol/L [place] Creatinine [Mass/Vol] 0.64 mg/dL 0.5 - 0.9 mg/dL [place] GFR >60 >60 mL/min [place] GFR Non- >60 >60 mL/min [place] Glucose [Mass/Vol] 144 mg/dL High 70 - 99 mg/dL [place] Potassium [Moles/Vol] 4.2 mmol/L 3.7 - 5.3 mmol/L [place] Protein [Mass/Vol] 7.7 g/dL 6.4 - 8.3 g/dL [place] Sodium [Moles/Vol] 137 mmol/L 135 - 144 mmol/L [place] Urea nitrogen [Mass/Vol] 8 mg/dL 6 - 20 mg/dL [place] Lactic Acid, Plasmaon 2019 Lactate [Moles/Vol] 1.4 mmol/L 0.5 - 2. 2 mmol/L [place] Lactic Acid, Whole Blood NOT REPORTED 0.7 - 2.1 mmol/L [place] Lipaseon 08-27-2020 Lipase [Catalytic activity/Vol] 73 U/L High 13 - 60 U/L [place] Metabolic Panelon 08-27-2020 GFR/1.73 sq M predicted among non-blacks MDRD (S/P/Bld) [Vol rate/Area] [place] Comment on above: Average GFR for 20-2 9 years old: 116 mL/min/1.73sq m Chronic Kidney Disease: <60 mL/min/1.73sq m Kidney failure: <15 mL/min/1.73sq m eGFR calculated using average adult body mass. Additional eGFR calculator available at: http://www.[employer]/multiple_crcl_2012.htm Stage 1: Some kidney damage normal GFR Stage 2: Mild kidney damage GFR 60-89 Stage 3: Moderate kidney damage GFR 30-59 Stage 4: Severe kidney damage GFR 15-29 Stage 5: Severe kidney damage GFR <15 ESRD - chronic treatment by dialysis or transplant Otheron 08-27-2020 Interpretation and review of laboratory results Abnormal [place], [place] , Urineon 0 Beta HCG ( test) Ql (U) Negative NEGATIVE [place] Comment on above: Specimens with hCG l evels near the threshold of the test (25 mIU/mL) may give a negative or indeterminate result. In such cases, another test should be performed with a new specimen in 48-72 hours. If early is suspected clinically in this setting, correlation with quantitative serum b-hCG level is suggested. [employer] has confirmed the use of plasma for this test. This has not been cleared or approved by the U.S. Food and Drug Administration. The FDA has determined that such clearance is not necessary. Urinalysis with Microscopico n 08-27-2020 Amorphous, UA NOT REPORTED None [facility] [place], [place] Bacteria, UA NOT REPORTED None [place] Bilirubin Urine Negative NEGATIVE [place] Casts UA NOT REPORTED /LPF [place], [place] Color, UA YELLOW YELLOW [place], [place] Crystals, UA NOT REPORTED None /HPF [place] Epithelial Cells UA 0 TO 2 [place] Glucose, Ur Negative NEGATIVE [place] Interpretation and review of laboratory results Abnormal [place] Ketones Ql (U) Negative NEGATIVE [place] Leukocyte esterase Test strip Ql (U) Negative NEGATIVE [place] Mucus, UA NOT REPORTED None [place], [place] Nitrite, Urine Negative NEGATIVE [place] Other Observations UA NOT REPORTED NOT REQ. M [place] pH, UA 5.5 [place] Protein (U) [Mass/Vol] Negative NEGATIVE [place] RBC (U) [#/Vol] None [place] Renal Epithelial, UA NOT REPORTED 0 /HPF [place], [place] Specific Onyx, UA 1.025 [place], [place] Trichomonas, UA NOT REPORTED None [facility] [place] Turbidity UA CLEAR CLEAR [place], [place] Urinalysis Comments NOT REPORTED [place] Urine Hgb Negative NEGATIVE [place], [place] Urobilinogen, Urine Normal Normal [place], [place] WBC, UA None [place], [place] Yeast, UA NOT REPORTED None [place], [place] - [place] CT Head WO Contraston 2019 No acute intracrania l abnormality. [place] EXAMINATION: CT OF T HE HEAD [...] of the visualized skull or soft tissues. [place], [place] Peyman, Mhpn Incoming Radiant Results From [employer] - 08/13/2020 3:12 PM EST EXAMINATION: CT [...] soft tissues. IMPRESSION: No acute intracranial abnormality. [place], [place] Homocysteine, Serumon 2019 Homocysteine 5.6 umol/L <15.0 [place], [place] CBC With Auto Differentialon 07-25-2020 Basophils (Bld) [#/Vol] 0.04 10*3/uL [place], [place] Basophils/100 WBC (Bld) 0 % 0 - 2 % [place] Differential Type NOT REPORTED [place] Eosinophils (Bld) [#/Vol] 0.11 10*3/uL [place] Eosinophils/100 WBC (Bld) 1 % 1 - 4 % [place] Erythrocyte distribution width (RBC) [Ratio] 14.1 % 11.8 - 14.4 % [place] Hematocrit (Bld) [Volume fraction] 37.5 % 36.3 - 47.1 % [place] Hemoglobin (Bld) [Mass/Vol] 11.7 g/dL Low 11.9 - 15.1 g/dL [place], [place] Immature granulocytes (Bld) [#/Vol] 0 % 0 [place] Immature granulocytes (Bld) [#/Vol] 0.03 10*3/uL [place] Interpretation and review of laboratory results Abnormal [place] Lymphocytes (Bld) [#/Vol] 3.82 10*3/uL [place], [place] Lymphocytes/100 WBC (Bld) 42 % 24 - 43 % [place] MCH (RBC) [Entitic mass] 28.1 pg 25.2 - 33.5 pg [place] MCHC (RBC) [Mass/Vol] 31.2 g/dL 28.4 - 34.8 g/dL [place] MCV (RBC) [Entitic vol] 90.1 fL 82.6 - 102.9 fL [place], [place] Monocytes (Bld) [#/Vol] 0.49 10*3/uL [place], [place] Monocytes/100 WBC (Bld) 5 % 3 - 12 % [place], [place] Platelet mean volume (Bld) [Entitic vol] 9.9 fL 8.1 - 13.5 fL [place], [place] Platelets (Bld) [#/Vol] 357 10*3/uL [place], [place] Platelets (Bld) [#/Vol] NOT REPORTED [place] RBC (Bld) [#/Vol] 4.16 10*6/uL 3.95 - 5.1 1 m/uL [place], [place] RBC morphology finding Nom (Bld) NOT REPORTED [place], [place] Segmented neutrophils/100 WBC (Bld) 52 % 36 - 65 % [place], [place] Segs Absolute 4.55 [place], [place] WBC (Bld) [#/Vol] 9.0 10*3/uL [place] WBC (Bld) [#/Vol] 0.0 10*3/uL 0.0 per 10 0 WBC [place], [place] WBC Morphology NOT REPORTED [place], [place] CBCon 06-15-2020 Erythrocyte distribution width (RBC) [Ratio] 16.3 % High 11.8 - 14.4 % [place] Hematocrit (Bld) [Volume fraction] 31.8 % Low 36.3 - 47.1 % [place] Hemoglobin (Bld) [Mass/Vol] 10.1 g/dL Low 11.9 - 15.1 g/dL [place], [place] Interpretation and review of laboratory results Abnormal [place] MCH (RBC) [Entitic mass] 29.4 pg 25.2 - 33.5 pg [place] MCHC (RBC) [Mass/Vol] 31.8 g/dL 28.4 - 34.8 g/dL [place] MCV (RBC) [Entitic vol] 92.7 fL 82.6 - 102.9 fL [place], [place] Platelet mean volume (Bld) [Entitic vol] 11.9 fL 8.1 - 13.5 fL [place], [place] Platelets (Bld) [#/Vol] 146 10*3/uL [place], [place] RBC (Bld) [#/Vol] 3.43 10*6/uL Low 3.95 - 5.1 1 m/uL [place], [place] WBC (Bld) [#/Vol] 0.0 10*3/uL 0.0 per 10 0 WBC [place], [place] WBC (Bld) [#/Vol] 8.5 10*3/uL [place] Surgical Pathologyon 020 Surgical Pathology Report [id number] [facility]OM[facility] PATHOLOGY [address] [place] [id number] SURGICAL PATHOLOGY CONSULTATION Patient Name: GAEL RUBY MR#: [id number] Specimen #[id number] Procedures/Addenda PERIPHERAL BLOOD REPORT Date Ordered: 06/15/2020 [...] the electronic health record for CBC parameters ([id number], 06/13/2020, 20:18). PLATELETS: Platelets show normal morphology. LEUKOCYTES: > 10% reactive lymphocytes; increased bands ERYTHROCYTES: Mild Anisocytosis, polychromasia Ronaldo Koch M.D. 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 ! 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 ! + ------+------+------+- ---------+ [place], [place] CBCon 06-14-2020 Erythrocyte distribution width (RBC) [Ratio] 16.1 % High 11.8 - 14.4 % [place] Hematocrit (Bld) [Volume fraction] 30.2 % Low 36.3 - 47.1 % [place], [place] Hemoglobin (Bld) [Mass/Vol] 9.4 g/dL Low 11.9 - 15.1 g/dL [place], [place] Interpretation and review of laboratory results Abnormal [place], [place] MCH (RBC) [Entitic mass] 29.4 pg 25.2 - 33.5 pg [place] MCHC (RBC) [Mass/Vol] 31.1 g/dL 28.4 - 34.8 g/dL [place] MCV (RBC) [Entitic vol] 94.4 fL 82.6 - 102.9 fL [place], [place] Platelet mean volume (Bld) [Entitic vol] 11.4 fL 8.1 - 13.5 fL [place], [place] Platelets (Bld) [#/Vol] 158 10*3/uL [place], [place] RBC (Bld) [#/Vol] 3.20 10*6/uL Low 3.95 - 5.1 1 m/uL [place], [place] WBC (Bld) [#/Vol] 7.0 10*3/uL [place] WBC (Bld) [#/Vol] 0.0 10*3/uL 0.0 per 10 0 WBC [place], [place] EKG 12 Leadon 06-14-2020 Atrial Rate 115 BPM [place], [place] P [place] 40 degrees [place], [place] P-R Interval 128 ms [place], [place] Q-T Interval 328 ms [facility], [place] QRS Duration 74 ms [place] QTc Calculation (Bazett) 453 ms [place], [place] R [place] 35 degrees [facility], [place] T [place] 34 degrees [place], [place] Ventricular Rate 115 BPM [place], [place] Peyman, Mhpn Incoming E kg Results From [facility] - 06/14/2020 9:39 AM EDT Sinus tachycardia Septal infarct , age undetermined Abnormal ECG When compared with ECG of 25-MAY-2019 20:08, No significant change was found Confirmed by KLAUS ROLLE ([id number]) on 06/14/2020 9:39:42 AM [place], [place] Sinus tachycardia Septal infarct , age undetermined Abnormal ECG When compared with ECG of 25-MAY-2019 20:08, No significant change was found Confirmed by KLAUS ROLLE ([id number]) on 06/14/2020 9:39:42 AM [place], [place] Basic Metabolic Panelon - Anion gap [Moles/Vol] 10 mmol/L 9 - 17 mmol/L [place], [place] Bun/Cre Ratio 7 Low [place], [place] Calcium [Mass/Vol] 8.7 mg/dL 8.6 - 10. 4 mg/dL [place], [place] Chloride [Moles/Vol] 105 mmol/L 98 - 10 7 mmol/L [place], [place] CO2 [Moles/Vol] 23 mmol/L 20 - 31 mmol/L [place], [place] Creatinine [Mass/Vol] 1.05 mg/dL High 0.5 - 0.9 mg/dL [place], [place] GFR >60 >60 mL/min [place], [place] GFR Non- >60 >60 mL/min [place], [place] Glucose [Mass/Vol] 106 mg/dL High 70 - 99 mg/dL [place], [place] Interpretation and review of laboratory results Abnormal [place], [place] Potassium [Moles/Vol] 3.6 mmol/L Low 3.7 - 5.3 mmol/L [place], [place] Sodium [Moles/Vol] 138 mmol/L 135 - 144 mmol/L [place], [place] Urea nitrogen [Mass/Vol] 7 mg/dL 6 - 20 mg/dL [place], [place] CBC Auto Differentialon 05-25 Atypical Lymphocytes 47 % [place], [place] Atypical Lymphocytes Absolute 3.56 k/uL [place], [place] Basophils (Bld) [#/Vol] 0.08 10*3/uL [place], [place] Basophils/100 WBC (Bld) 1 % 0 - 2 % [place], [place] Differential Type NOT REPORTED [place] Eosinophils (Bld) [#/Vol] 0.08 10*3/uL [place], [place] Eosinophils/100 WBC (Bld) 1 % 1 - 4 % [place] Erythrocyte distribution width (RBC) [Ratio] 15.8 % High 11.8 - 14.4 % [place], [place] Hematocrit (Bld) [Volume fraction] 34.4 % Low 36.3 - 47.1 % [place], [place] Hemoglobin (Bld) [Mass/Vol] 10.8 g/dL Low 11.9 - 15.1 g/dL [place], [place] Immature granulocytes (Bld) [#/Vol] 0.00 10*3/uL [place], [place] Immature granulocytes (Bld) [#/Vol] 0 % 0 [place], [place] Interpretation and review of laboratory results Abnormal [place] Lymphocytes (Bld) [#/Vol] 1.29 10*3/uL [place] Lymphocytes/100 WBC (Bld) 17 % Low 24 - 43 % [place] MCH (RBC) [Entitic mass] 29.3 pg 25.2 - 33.5 pg [place], [place] MCHC (RBC) [Mass/Vol] 31.4 g/dL 28.4 - 34.8 g/dL [place], [place] MCV (RBC) [Entitic vol] 93.2 fL 82.6 - 102.9 fL [place], [place] Monocytes (Bld) [#/Vol] 0.23 10*3/uL [place], [place] Monocytes/100 WBC (Bld) 3 % 3 - 12 % [place], [place] Morphology Kenan (Bld) [Interp] Normal [place], [place] Platelet mean volume (Bld) [Entitic vol] 10.3 fL 8.1 - 13.5 fL [place], [place] Platelets (Bld) [#/Vol] NOT REPORTED [place], [place] Platelets (Bld) [#/Vol] 195 10*3/uL [place] RBC (Bld) [#/Vol] 3.69 10*6/uL Low 3.95 - 5.1 1 m/uL [place], [place] RBC morphology finding Nom (Bld) NOT REPORTED [place], [place] Segmented neutrophils/100 WBC (Bld) 31 % Low 36 - 65 % [place], [place] Segs Absolute 2.36 [place], [place] WBC (Bld) [#/Vol] 0.0 10*3/uL 0.0 per 10 0 WBC [place] WBC (Bld) [#/Vol] 7.6 10*3/uL [place] WBC Morphology NOT REPORTED [place] CT CHEST PULMONARY EMBOLISM W CONTRASTon 06-13-2020 Peyman, [facility] Incoming Radiant Results From [employer] - 06/13/2020 10:43 PM EDT EXAMINATION: CTA [...] to KRYSTINA LLANES on 06/13/2020 at 22:38. [place] 1. Multiple bilatera l pulmonary emboli, with greatest involvement of the lower lobes, without evidence of RV strain 2. Critical results were called by Dr. Serafin Dietz to KRYSTINA LLANES on 06/13/2020 at 22:38. [place] EXAMINATION: CTA OF THE CHEST 06/13/2020 [...] No acute bone or soft tissue abnormality. [place] D-Dimer, Quantitativeon 05-25 D-Dimer, Quant 3.94 [place], [place] Comment on above: When combined with [...] Interpretation and review of laboratory results Abnormal [place], [place] Metabolic Panelon 06-13-2020 GFR/1.73 sq M predicted among non-blacks MDRD (S/P/Bld) [Vol rate/Area] [place], [place] Comment on above: Average GFR for 20-2 9 years old: 116 mL/min/1.73sq m Chronic Kidney Disease: <60 mL/min/1.73sq m Kidney failure: <15 mL/min/1.73sq m eGFR calculated using average adult body mass. Additional eGFR calculator available at: http://www.Seed&Spark.Meme/multiple_crcl_2012.htm Stage 1: Some kidney damage normal GFR Stage 2: Mild kidney damage GFR 60-89 Stage 3: Moderate kidney damage GFR 30-59 Stage 4: Severe kidney damage GFR 15-29 Stage 5: Severe kidney damage GFR <15 ESRD - chronic treatment by dialysis or transplant Reticulocyteson 06-13-2020 Absolute Retic # 0.185 [place], [place] Immature Retic Fract 32.8 % High 2.7 - 1 8.3 % [place] Interpretation and review of laboratory results Abnormal [place], [place] Retic % 5.1 % High 0.5 - 1.9 % [place], [place] Retic Hemoglobin 32.0 pg 28.2 - 35.7 pg [place], [place] Troponinon 06-13-2020 Troponin I.cardiac [Mass/Vol] NOT REPORTED [place], [place] Troponin T.cardiac [Mass/Vol] NOT REPORTED <0.03 ng/mL [place], [place] Troponin, High Sensitivity <6 0 - 14 ng/L [place], [place] Comment on above: High Sensitivity Troponin values cannot be compared with other Troponin methodologies. Patients with high levels of Biotin oral intake (i.e >5mg/day) may have falsely decreased Troponin levels. Samples collected within 8 hours of biotin intake may require additional information for diagnosis. XR CHEST PORTABLEon 06-13-20 No acute cardiopulmonary pathology. [place] EXAMINATION: ONE XRA Y VIEW OF [...] structures and soft tissues are grossly intact. [place], [place] Peyman, Mhpn Incoming Radiant Results From [employer] - 06/13/2020 8:03 PM EDT EXAMINATION: ONE [...] grossly intact. IMPRESSION: No acute cardiopulmonary pathology. [place], [place] CBC auto differentialon Basophils (Bld) [#/Vol] 10*3/uL [place], [place] Basophils/100 WBC (Bld) 0 % 0 - 2 % [place], [place] Differential Type NOT REPORTED [place] Eosinophils (Bld) [#/Vol] 0.08 10*3/uL [place], [place] Eosinophils/100 WBC (Bld) 1 % 1 - 4 % [place] Erythrocyte distribution width (RBC) [Ratio] 14.7 % High 11.8 - 14.4 % [place] Hematocrit (Bld) [Volume fraction] 27.0 % Low 36.3 - 47.1 % [place], [place] Hemoglobin (Bld) [Mass/Vol] 8.8 g/dL Low 11.9 - 15.1 g/dL [place], [place] Immature granulocytes (Bld) [#/Vol] 1 % High 0 [place], [place] Immature granulocytes (Bld) [#/Vol] 0.07 10*3/uL [place], [place] Interpretation and review of laboratory results Abnormal [place], [place] Lymphocytes (Bld) [#/Vol] 2.83 10*3/uL [place], [place] Lymphocytes/100 WBC (Bld) 23 % Low 24 - 43 % [place] MCH (RBC) [Entitic mass] 30.8 pg 25.2 - 33.5 pg [place], [place] MCHC (RBC) [Mass/Vol] 32.6 g/dL 28.4 - 34.8 g/dL [place], [place] MCV (RBC) [Entitic vol] 94.4 fL 82.6 - 102.9 fL [place], [place] Monocytes (Bld) [#/Vol] 0.81 10*3/uL [place], [place] Monocytes/100 WBC (Bld) 7 % 3 - 12 % [place], [place] Platelet mean volume (Bld) [Entitic vol] 11.2 fL 8.1 - 13.5 fL [place], [place] Platelets (Bld) [#/Vol] NOT REPORTED [place], [place] Platelets (Bld) [#/Vol] 192 10*3/uL [place], [place] RBC (Bld) [#/Vol] 2.86 10*6/uL Low 3.95 - 5.1 1 m/uL [place], [place] RBC morphology finding Nom (Bld) NOT REPORTED [place], [place] Segmented neutrophils/100 WBC (Bld) 68 % High 36 - 65 % [place], [place] Segs Absolute 8.56 [place], [place] WBC (Bld) [#/Vol] 12.4 10*3/uL [place], [place] WBC (Bld) [#/Vol] 0.0 10*3/uL 0.0 per 10 0 WBC [place], [place] WBC Morphology NOT REPORTED [place], [place] Glucose, Fastingon 0 Glucose [Mass/Vol] 88 mg/dL 70 - 99 mg/dL [place], [place] Surgical Pathologyon 020 Surgical Pathology Report [...] SURGICAL PATHOLOGY CONSULTATION Patient Name: GAEL RUBY [facility] Rec: [id number] Path Number: [id number] [facility] [employer] [facility] ANATOMIC PATHOLOGY [address] [place] [phone] [place], [place] Glucose, Whole Bloodon 05-23 Glucose [Mass/Vol] 152 mg/dL High 74 - 100 mg/dL [place], [place] Interpretation and review of laboratory results Abnormal [place], [place] Glucose [Mass/Vol] 110 mg/dL High 74 - 100 mg/dL [place], [place] Interpretation and review of laboratory results Abnormal [place], [place] Glucose [Mass/Vol] 178 mg/dL High 74 - 100 mg/dL [place], [place] Interpretation and review of laboratory results Abnormal [place], [place] Hemoglobinon 05-23-2020 Hemoglobin (Bld) [Mass/Vol] 9.9 g/dL Low 11.9 - 15.1 g/dL [place], [place] Interpretation and review of laboratory results Abnormal [place], [place] CBCon 05-22-2020 Erythrocyte distribution width (RBC) [Ratio] 14.6 % High 11.8 - 14.4 % [place], [place] Hematocrit (Bld) [Volume fraction] 35.2 % Low 36.3 - 47.1 % [place], [place] Hemoglobin (Bld) [Mass/Vol] 11.6 g/dL Low 11.9 - 15.1 g/dL [place], [place] Interpretation and review of laboratory results Abnormal [place], [place] MCH (RBC) [Entitic mass] 30.9 pg 25.2 - 33.5 pg [place], [place] MCHC (RBC) [Mass/Vol] 33.0 g/dL 28.4 - 34.8 g/dL [place], [place] MCV (RBC) [Entitic vol] 93.9 fL 82.6 - 102.9 fL [place], [place] Platelet mean volume (Bld) [Entitic vol] 11.1 fL 8.1 - 13.5 fL [place], [place] Platelets (Bld) [#/Vol] 245 10*3/uL [place], [place] RBC (Bld) [#/Vol] 3.75 10*6/uL Low 3.95 - 5.1 1 m/uL [place], [place] WBC (Bld) [#/Vol] 14.0 10*3/uL [place] WBC (Bld) [#/Vol] 0.0 10*3/uL 0.0 per 10 0 WBC [place] DRUG SCREEN MULTI URINEon Amphetamine Screen, Ur Negative NEGATIVE [facility], [place] Barbiturate Screen, Ur Negative NEGATIVE [facility] [place] [facility], [place] Benzodiazepine Screen, Urine Negative NEGATIVE [facility] Buprenorphine Urine Negative NEGATIVE [facility], [place] Cannabinoid Scrn, Ur Negative NEGATIVE [facility], [place] Cocaine Metabolite, Urine Negative NEGATIVE [facility], [place] MDMA, Urine NOT REPORTED NEGATIVE [facility] [place], [place] Methadone Screen, Urine Negative NEGATIVE [facility], [place] Methamphetamine, Urine Negative NEGATIVE [facility], [place] Opiates, Urine Negative NEGATIVE [place] Oxycodone Screen, Ur Negative NEGATIVE [facility], [place] Phencyclidine, Urine Negative NEGATIVE [place] Propoxyphene, Urine Negative NEGATIVE [place], [place] Test Information NOT REPORTED [place], [place] Tricyclic Antidepressants, Urine Negative NEGATIVE [place], [place] Comment on above: Drug screen results are to be used for medical purposes only. All positive results are unconfirmed. Testing for employment or legal uses should be sent to a reference laboratory for confirmation. TYPE AND SCREENon 05-22-2020 ABO/Rh Positive [facility], [place] Arm Band Number [id number] [place], [place] Expiration Date 05/25/2020,7817 [place] Urinalysison 04-29-2020 Bilirubin Urine Negative NEGATIVE [facility], [place] Color, UA YELLOW YELLOW [place], [place] Glucose, Ur Negative NEGATIVE [facility] [place] Ketones Ql (U) Negative NEGATIVE [facility], [place] Leukocyte esterase Test strip Ql (U) Negative NEGATIVE [facility], [place] Nitrite, Urine Negative NEGATIVE [facility], [place] pH, UA 7.5 [place], [place] Protein (U) [Mass/Vol] Negative NEGATIVE [facility] [place] [facility], [place] Specific Onyx, UA 1.010 [place], [place] Turbidity UA CLEAR CLEAR [place], [place] Urinalysis Comments NOT REPORTED [place], [place] Urine Hgb Negative NEGATIVE [place], [place] Urobilinogen, Urine Normal Normal [place] Urinalysison 04-08-2020 Bilirubin Urine Negative NEGATIVE [facility] [place] Color, UA YELLOW YELLOW [place], [place] Glucose, Ur Negative NEGATIVE [place], [place] Ketones Ql (U) Negative NEGATIVE [place] Leukocyte esterase Test strip Ql (U) Negative NEGATIVE [place], [place] Nitrite, Urine Negative NEGATIVE [place] pH, UA 6.5 [place], [place] Protein (U) [Mass/Vol] Negative NEGATIVE [place], [place] Specific Onyx, UA 1.020 [place], [place] Turbidity UA CLEAR CLEAR [place], [place] Urinalysis Comments NOT REPORTED [place] Urine Hgb Negative NEGATIVE [place], [place] Urobilinogen, Urine Normal Normal [place], [place] CBC auto differentialon 03-23 Basophils (Bld) [#/Vol] 0.04 10*3/uL [place], [place] Basophils/100 WBC (Bld) 0 % 0 - 2 % [place], [place] Differential Type NOT REPORTED [place], [place] Eosinophils (Bld) [#/Vol] 0.10 10*3/uL [place], [place] Eosinophils/100 WBC (Bld) 1 % 1 - 4 % [place] Erythrocyte distribution width (RBC) [Ratio] 14.1 % 11.8 - 14.4 % [place] Hematocrit (Bld) [Volume fraction] 32.7 % Low 36.3 - 47.1 % [place] Hemoglobin (Bld) [Mass/Vol] 10.9 g/dL Low 11.9 - 15.1 g/dL [place], [place] Immature granulocytes (Bld) [#/Vol] 1 % High 0 [place], [place] Immature granulocytes (Bld) [#/Vol] 0.13 10*3/uL [place], [place] Interpretation and review of laboratory results Abnormal [place], [place] Lymphocytes (Bld) [#/Vol] 3.63 10*3/uL [place], [place] Lymphocytes/100 WBC (Bld) 21 % Low 24 - 43 % [place], [place] MCH (RBC) [Entitic mass] 31.1 pg 25.2 - 33.5 pg [place], [place] MCHC (RBC) [Mass/Vol] 33.3 g/dL 28.4 - 34.8 g/dL [place], [place] MCV (RBC) [Entitic vol] 93.4 fL 82.6 - 102.9 fL [place], [place] Monocytes (Bld) [#/Vol] 1.04 10*3/uL [place], [place] Monocytes/100 WBC (Bld) 6 % 3 - 12 % [place], [place] Platelet mean volume (Bld) [Entitic vol] 10.3 fL 8.1 - 13.5 fL [place], [place] Platelets (Bld) [#/Vol] 249 10*3/uL [place], [place] Platelets (Bld) [#/Vol] NOT REPORTED [place], [place] RBC (Bld) [#/Vol] 3.50 10*6/uL Low 3.95 - 5.1 1 m/uL [place], [place] RBC morphology finding Nom (Bld) NOT REPORTED [place], [place] Segmented neutrophils/100 WBC (Bld) 71 % High 36 - 65 % [place], [place] Segs Absolute 12.11 [place], [place] WBC (Bld) [#/Vol] 0.0 10*3/uL 0.0 per 10 0 WBC [place] WBC (Bld) [#/Vol] 17.1 10*3/uL [place], [place] WBC Morphology NOT REPORTED [place], [place] TSH with Reflexon 04-03-2020 TSH Qn 0.97 m[IU]/L [place], [place] Microscopic Urinalysison Amorphous, UA NOT REPORTED None [place], [place] Bacteria, UA TRACE Abnormal None [place], [place] Casts UA 2 TO 5 COARSELY GRANULAR /LPF [place], [place] Casts UA HYALINE /LPF [place], [place] Casts UA 0 TO 2 /LPF [place] Crystals, UA NOT REPORTED None /HPF [place] Epithelial Cells UA 10 TO 20 [place], [place] Interpretation and review of laboratory results Abnormal [place] Mucus, UA TRACE Abnormal None [place], [place] Other Observations UA NOT REPORTED NOT REQ. M [place], [place] RBC (U) [#/Vol] 0 TO 2 [place], [place] Renal Epithelial, UA NOT REPORTED 0 /HPF [place], [place] Trichomonas, UA NOT REPORTED None [place], [place] WBC, UA 5 TO 10 [place], [place] Yeast, UA NOT REPORTED None [place], [place] - [place], [place] Urinalysison 04-02-2020 Bilirubin Urine Negative NEGATIVE [place], [place] Color, UA YELLOW YELLOW [place], [place] Glucose, Ur Negative NEGATIVE [place] Interpretation and review of laboratory results Abnormal [place], [place] Ketones Ql (U) 1+ Abnormal NEGATIVE [place] Leukocyte esterase Test strip Ql (U) Negative NEGATIVE [place], [place] Nitrite, Urine Negative NEGATIVE [place] pH, UA 6.0 [place], [place] Protein (U) [Mass/Vol] Negative NEGATIVE [place], [place] Specific Onyx, UA 1.020 [place], [place] Turbidity UA CLEAR CLEAR [place], [place] Urinalysis Comments NOT REPORTED [place] Urine Hgb Negative NEGATIVE [place], [place] Urobilinogen, Urine Normal Normal [place], [place] Glucose, Whole Bloodon 03-29 Glucose [Mass/Vol] 110 mg/dL High 74 - 100 mg/dL [place], [place] Interpretation and review of laboratory results Abnormal [place] Microscopic Urinalysison Amorphous, UA NOT REPORTED None [place], [place] Bacteria, UA 1+ Abnormal None [place], [place] Casts UA NOT REPORTED /LPF [place], [place] Crystals, UA NOT REPORTED None /HPF [place] Epithelial Cells UA 0 TO 2 [place], [place] Interpretation and review of laboratory results Abnormal [place], [place] Mucus, UA 2+ Abnormal None [place], [place] Other Observations UA NOT REPORTED NOT REQ. M [place], [place] RBC (U) [#/Vol] 0 TO 2 [place] Renal Epithelial, UA NOT REPORTED 0 /HPF [place], [place] Trichomonas, UA NOT REPORTED None [place] WBC, UA 0 TO 2 [place], [place] Yeast, UA NOT REPORTED None [place], [place] - [place], [place] Urinalysison 03-29-2020 Bilirubin Urine Negative NEGATIVE [place], [place] Color, UA YELLOW YELLOW [place], [place] Glucose, Ur Negative NEGATIVE [place], [place] Interpretation and review of laboratory results Abnormal [place], [place] Ketones Ql (U) 4+ Abnormal NEGATIVE [place] Leukocyte esterase Test strip Ql (U) Negative NEGATIVE [place], [place] Nitrite, Urine Negative NEGATIVE [place] pH, UA 6.5 [place], [place] Protein (U) [Mass/Vol] Negative NEGATIVE [place], [place] Specific Onyx, UA 1.020 [place], [place] Turbidity UA CLEAR CLEAR [place], [place] Urinalysis Comments NOT REPORTED [place] Urine Hgb Negative NEGATIVE [place], [place] Urobilinogen, Urine Normal Normal [place], [place] CBCon 02-26-2020 Erythrocyte distribution width (RBC) [Ratio] 13.7 % 11.8 - 14.4 % [place], [place] Hematocrit (Bld) [Volume fraction] 32.9 % Low 36.3 - 47.1 % [place] Hemoglobin (Bld) [Mass/Vol] 11.1 g/dL Low 11.9 - 15.1 g/dL [place], [place] Interpretation and review of laboratory results Abnormal [place] MCH (RBC) [Entitic mass] 31.6 pg 25.2 - 33.5 pg [place] MCHC (RBC) [Mass/Vol] 33.7 g/dL 28.4 - 34.8 g/dL [place], [place] MCV (RBC) [Entitic vol] 93.7 fL 82.6 - 102.9 fL [place], [place] Platelet mean volume (Bld) [Entitic vol] 10.6 fL 8.1 - 13.5 fL [place], [place] Platelets (Bld) [#/Vol] 247 10*3/uL [place], [place] RBC (Bld) [#/Vol] 3.51 10*6/uL Low 3.95 - 5.1 1 m/uL [place], [place] WBC (Bld) [#/Vol] 13.7 10*3/uL [place], [place] WBC (Bld) [#/Vol] 0.0 10*3/uL 0.0 per 10 0 WBC [place], [place] Comprehensive metabolic pane mando 02-26-2020 Albumin [Mass/Vol] 3.4 g/dL Low 3.5 - 5.2 g/dL [place], [place] Albumin/Globulin [Mass ratio] 1.1 {ratio} [place] ALP [Catalytic activity/Vol] 69 U/L 35 - 104 U/L [place] ALT [Catalytic activity/Vol] 8 U/L 5 - 33 U/L [place] Anion gap [Moles/Vol] 12 mmol/L 9 - 17 mmol/L [place] AST [Catalytic activity/Vol] 12 U/L <32 [place] Bilirubin Ql (U) 0.22 mg/dL Low 0.3 - 1.2 mg/dL [place] Bun/Cre Ratio 9 [place] Calcium [Mass/Vol] 8.9 mg/dL 8.6 - 10. 4 mg/dL [place] Chloride [Moles/Vol] 104 mmol/L 98 - 10 7 mmol/L [place] CO2 [Moles/Vol] 21 mmol/L 20 - 31 mmol/L [place] Creatinine [Mass/Vol] 0.53 mg/dL 0.5 - 0.9 mg/dL [place] GFR >60 >60 mL/min [place] GFR Non- >60 >60 mL/min [place] Glucose [Mass/Vol] 110 mg/dL High 70 - 99 mg/dL [place] Interpretation and review of laboratory results Abnormal [place] Potassium [Moles/Vol] 3.7 mmol/L 3.7 - 5.3 mmol/L [place] Protein [Mass/Vol] 6.4 g/dL 6.4 - 8.3 g/dL [place] Sodium [Moles/Vol] 137 mmol/L 135 - 144 mmol/L [place] Urea nitrogen [Mass/Vol] 5 mg/dL Low 6 - 20 mg/dL [place] Metabolic Panelon 02-26-2020 GFR/1.73 sq M predicted among non-blacks MDRD (S/P/Bld) [Vol rate/Area] [place] Comment on above: Average GFR for 20-2 9 years old: 116 mL/min/1.73sq m Chronic Kidney Disease: <60 mL/min/1.73sq m Kidney failure: <15 mL/min/1.73sq m eGFR calculated using average adult body mass. Additional eGFR calculator available at: http://www.Seed&Spark.Meme/multiple_crcl_2012.htm Stage 1: Some kidney damage normal GFR Stage 2: Mild kidney damage GFR 60-89 Stage 3: Moderate kidney damage GFR 30-59 Stage 4: Severe kidney damage GFR 15-29 Stage 5: Severe kidney damage GFR <15 ESRD - chronic treatment by dialysis or transplant Urinalysison 02-26-2020 Bilirubin Urine Negative NEGATIVE [place] Color, UA YELLOW YELLOW [place], [place] Glucose, Ur Negative NEGATIVE [place] Ketones Ql (U) Negative NEGATIVE [place] Leukocyte esterase Test strip Ql (U) Negative NEGATIVE [place] Nitrite, Urine Negative NEGATIVE [place] pH, UA 7.0 [place], [place] Protein (U) [Mass/Vol] Negative NEGATIVE [place] Specific Onyx, UA 1.020 [place] Turbidity UA CLEAR CLEAR [place], [place] Urinalysis Comments NOT REPORTED [place] Urine Hgb Negative NEGATIVE [place] Urobilinogen, Urine Normal Normal [place] US GALLBLADDER RUQon 020 Status post cholecystectomy. No evidence for biliary duct dilatation. No abnormal fluid collections or ascites. [place] EXAMINATION: RIGHT UPPER QUADRANT ULTRASOUND 02/02/2020 [...] was not performed to evaluate the fetus. [place], [place] Incoming Radiant Results From [employer] - 02/02/2020 9:15 AM EDT EXAMINATION: RIGHT [...] dilatation. No abnormal fluid collections or ascites. [place] Basic Metabolic Panel w/ Ref kendell to MGon 02-01-2020 Anion gap [Moles/Vol] 14 mmol/L 9 - 17 mmol/L [place] Bun/Cre Ratio 10 [place] Calcium [Mass/Vol] 9.3 mg/dL 8.6 - 10. 4 mg/dL [place] Chloride [Moles/Vol] 102 mmol/L 98 - 10 7 mmol/L [place] CO2 [Moles/Vol] 20 mmol/L 20 - 31 mmol/L [place] Creatinine [Mass/Vol] 0.49 mg/dL Low 0.5 - 0.9 mg/dL [place] GFR >60 >60 mL/min [place] GFR Non- >60 >60 mL/min [place] Glucose [Mass/Vol] 152 mg/dL High 70 - 99 mg/dL [place] Interpretation and review of laboratory results Abnormal [place] Potassium [Moles/Vol] 3.5 mmol/L Low 3.7 - 5.3 mmol/L [place] Sodium [Moles/Vol] 136 mmol/L 135 - 144 mmol/L [place] Urea nitrogen [Mass/Vol] 5 mg/dL Low 6 - 20 mg/dL [place], [place] CBC Auto Differentialon 01-21 Basophils (Bld) [#/Vol] 0.03 10*3/uL [place] Basophils/100 WBC (Bld) 0 % 0 - 2 % [place] Differential Type NOT REPORTED [place] Eosinophils (Bld) [#/Vol] 0.08 10*3/uL [place] Eosinophils/100 WBC (Bld) 1 % 1 - 4 % [place] Erythrocyte distribution width (RBC) [Ratio] 13.7 % 11.8 - 14.4 % [place] Hematocrit (Bld) [Volume fraction] 34.9 % Low 36.3 - 47.1 % [place] Hemoglobin (Bld) [Mass/Vol] 11.8 g/dL Low 11.9 - 15.1 g/dL [place] Immature granulocytes (Bld) [#/Vol] 0.09 10*3/uL [place] Immature granulocytes (Bld) [#/Vol] 1 % High 0 [place] Interpretation and review of laboratory results Abnormal [place] Lymphocytes (Bld) [#/Vol] 2.78 10*3/uL [place] Lymphocytes/100 WBC (Bld) 18 % Low 24 - 43 % [place] MCH (RBC) [Entitic mass] 31.4 pg 25.2 - 33.5 pg [place] MCHC (RBC) [Mass/Vol] 33.8 g/dL 28.4 - 34.8 g/dL [place] MCV (RBC) [Entitic vol] 92.8 fL 82.6 - 102.9 fL [place] Monocytes (Bld) [#/Vol] 0.65 10*3/uL [place] Monocytes/100 WBC (Bld) 4 % 3 - 12 % [place] Platelet mean volume (Bld) [Entitic vol] 10.5 fL 8.1 - 13.5 fL [place] Platelets (Bld) [#/Vol] NOT REPORTED [place] Platelets (Bld) [#/Vol] 273 10*3/uL [place] RBC (Bld) [#/Vol] 3.76 10*6/uL Low 3.95 - 5.1 1 m/uL [place] RBC morphology finding Nom (Bld) NOT REPORTED [place] Segmented neutrophils/100 WBC (Bld) 76 % High 36 - 65 % [place] Segs Absolute 11.78 [facility] [place] WBC (Bld) [#/Vol] 15.4 10*3/uL [place] WBC (Bld) [#/Vol] 0.0 10*3/uL 0.0 per 10 0 WBC [place] WBC Morphology NOT REPORTED [place] Hepatic Function Panelon Albumin [Mass/Vol] 3.6 g/dL 3.5 - 5.2 g/dL [place] Albumin/Globulin [Mass ratio] 1.2 {ratio} [place] ALP [Catalytic activity/Vol] 70 U/L 35 - 104 U/L [place] ALT [Catalytic activity/Vol] 8 U/L 5 - 33 U/L [place] AST [Catalytic activity/Vol] 12 U/L <32 [place] Bilirubin Ql (U) 0.25 mg/dL Low 0.3 - 1.2 mg/dL [place] Bilirubin, Indirect CANNOT BE CALCULATED 0 - 1 mg/dL [place] Bilirubin.direct [Mass/Vol] mg/dL <0.31 mg/dL [place] Globulin (S) [Mass/Vol] NOT REPORTED 1.5 - 3.8 g/dL [place] Interpretation and review of laboratory results Abnormal [place] Protein [Mass/Vol] 6.7 g/dL 6.4 - 8.3 g/dL [place] Lipaseon 02-01-2020 Lipase [Catalytic activity/Vol] 51 U/L 13 - 60 U/L [place] Magnesiumon 02-01-2020 Magnesium [Mass/Vol] 1.8 mg/dL 1.6 - 2 .6 mg/dL [place] Metabolic Panelon 02-01-2020 GFR/1.73 sq M predicted among non-blacks MDRD (S/P/Bld) [Vol rate/Area] [place], [place] Comment on above: Stage 1: Some [...] body mass. Additional eGFR calculator available at: http://www.Profitably/multiple_crcl_2012.htm Urinalysis, reflex to micros copicon 02-01-2020 Bilirubin U[facility] [place] [place] Color, UA YELLOW YELLOW [place], [place] Glucose, Ur Negative NEGATIVE [place] Ketones Ql (U) Negative NEGATIVE [place] Leukocyte esterase Test strip Ql (U) Negative NEGATIVE [place] Nitrite, Urine Negative NEGATIVE [place] pH, UA 6.5 [place] Protein (U) [Mass/Vol] Negative NEGATIVE [place], [place] Specific Onyx, UA 1.015 [place], [place] Turbidity UA CLEAR CLEAR [place], [place] Urinalysis Comments NOT REPORTED [place] Urine Hgb Negative NEGATIVE [place] Urobilinogen, Urine Normal Normal [place], [place] CBC Auto Differentialon 12-22 Basophils (Bld) [#/Vol] 10*3/uL [place] Basophils/100 WBC (Bld) 0 % 0 - 2 % [place] Differential Type NOT REPORTED [place] Eosinophils (Bld) [#/Vol] 0.08 10*3/uL [place] Eosinophils/100 WBC (Bld) 1 % 1 - 4 % [place] Erythrocyte distribution width (RBC) [Ratio] 13.6 % 11.8 - 14.4 % [place] Hematocrit (Bld) [Volume fraction] 36.2 % Low 36.3 - 47.1 % [place] Hemoglobin (Bld) [Mass/Vol] 12.3 g/dL 11.9 - 15.1 g/dL [place] Immature granulocytes (Bld) [#/Vol] 0.05 10*3/uL [place] Immature granulocytes (Bld) [#/Vol] 0 % 0 [place] Interpretation and review of laboratory results Abnormal [place] Lymphocytes (Bld) [#/Vol] 2.92 10*3/uL [place] Lymphocytes/100 WBC (Bld) 23 % Low 24 - 43 % [place] MCH (RBC) [Entitic mass] 31.2 pg 25.2 - 33.5 pg [place] MCHC (RBC) [Mass/Vol] 34.0 g/dL 28.4 - 34.8 g/dL [place] MCV (RBC) [Entitic vol] 91.9 fL 82.6 - 102.9 fL [place] Monocytes (Bld) [#/Vol] 0.63 10*3/uL [place] Monocytes/100 WBC (Bld) 5 % 3 - 12 % [place] Platelet mean volume (Bld) [Entitic vol] 10.4 fL 8.1 - 13.5 fL [place] Platelets (Bld) [#/Vol] NOT REPORTED [place] Platelets (Bld) [#/Vol] 286 10*3/uL [place] RBC (Bld) [#/Vol] 3.94 10*6/uL Low 3.95 - 5.1 1 m/uL [place], [place] RBC morphology finding Nom (Bld) NOT REPORTED [place] Segmented neutrophils/100 WBC (Bld) 71 % High 36 - 65 % [place] Segs Absolute 8.96 High [place] WBC (Bld) [#/Vol] 12.7 10*3/uL [place] WBC (Bld) [#/Vol] 0.0 10*3/uL 0.0 per 10 0 WBC [place] WBC Morphology NOT REPORTED [place] Comprehensive Metabolic Pane l w/ Reflex to MGon 01-10-2020 Albumin [Mass/Vol] 3.6 g/dL 3.5 - 5.2 g/dL [place] Albumin/Globulin [Mass ratio] 1.1 {ratio} [place] ALP [Catalytic activity/Vol] 59 U/L 35 - 104 U/L [place] ALT [Catalytic activity/Vol] 13 U/L 5 - 33 U/L [place] Anion gap [Moles/Vol] 15 mmol/L 9 - 17 mmol/L [place] AST [Catalytic activity/Vol] 24 U/L <32 [place] Bilirubin Ql (U) 0.30 mg/dL 0.3 - 1.2 mg/dL [place] Bun/Cre Ratio 13 [place], [place] Calcium [Mass/Vol] 9.4 mg/dL 8.6 - 10. 4 mg/dL [place] Chloride [Moles/Vol] 102 mmol/L 98 - 10 7 mmol/L [place] CO2 [Moles/Vol] 20 mmol/L 20 - 31 mmol/L [place] Creatinine [Mass/Vol] 0.48 mg/dL Low 0.5 - 0.9 mg/dL [place] GFR >60 >60 mL/min [place] GFR Non- >60 >60 mL/min [place] Glucose [Mass/Vol] 89 mg/dL 70 - 99 mg/dL [place] Interpretation and review of laboratory results Abnormal [place] Potassium [Moles/Vol] 4.2 mmol/L 3.7 - 5.3 mmol/L [place] Protein [Mass/Vol] 7.0 g/dL 6.4 - 8.3 g/dL [place] Sodium [Moles/Vol] 137 mmol/L 135 - 144 mmol/L [place] Urea nitrogen [Mass/Vol] 6 mg/dL 6 - 20 mg/dL [place] Lipaseon 01-10-2020 Lipase [Catalytic activity/Vol] 51 U/L 13 - 60 U/L [place] Metabolic Panelon 01-10-2020 GFR/1.73 sq M predicted among non-blacks MDRD (S/P/Bld) [Vol rate/Area] [place], [place] Comment on above: Average GFR for 20-2 9 years old: 116 mL/min/1.73sq m Chronic Kidney Disease: <60 mL/min/1.73sq m Kidney failure: <15 mL/min/1.73sq m eGFR calculated using average adult body mass. Additional eGFR calculator available at: http://www.Profitably/multiple_crcl_2012.htm Stage 1: Some kidney damage normal GFR Stage 2: Mild kidney damage GFR 60-89 Stage 3: Moderate kidney damage GFR 30-59 Stage 4: Severe kidney damage GFR 15-29 Stage 5: Severe kidney damage GFR <15 ESRD - chronic treatment by dialysis or transplant Microscopic Urinalysison Amorphous, UA TRACE Abnormal None [place] Bacteria, UA TRACE Abnormal None [place], [place] Casts UA NOT REPORTED /LPF [place], [place] Crystals, UA NOT REPORTED None /HPF [place] Epithelial Cells UA 20 TO 50 [place], [place] Interpretation and review of laboratory results Abnormal [place] Mucus, UA NOT REPORTED None [place], [place] Other Observations UA NOT REPORTED NOT REQ. M [place], [place] RBC (U) [#/Vol] 0 TO 2 [place], [place] Renal Epithelial, UA NOT REPORTED 0 /HPF [place], [place] Trichomonas, UA PRESENCE NOTED Abnormal [place], [place] WBC, UA 5 TO 10 [place], [place] Yeast, UA NOT REPORTED None [place], [place] - [place] Urinalysis, reflex to micros copicon 01-10-2020 Bilirubin Urine Negative NEGATIVE [place] Color, UA YELLOW YELLOW [place], [place] Glucose, Ur Negative NEGATIVE [place] Interpretation and review of laboratory results Abnormal [place] Ketones Ql (U) Negative NEGATIVE [facility], [place] Leukocyte esterase Test strip Ql (U) TRACE Abnormal NEGATIVE [facility], [place] Nitrite, Urine Negative NEGATIVE [facility], [place] pH, UA 7.0 [place] Protein (U) [Mass/Vol] Negative NEGATIVE [facility], [place] Specific Onyx, UA 1.020 [facility], [place] Turbidity UA SLIGHTLY CLOUDY Abnormal CLEAR [facility] [place] Urinalysis Comments NOT REPORTED [facility], [place] Urine Hgb Negative NEGATIVE [facility] Urobilinogen, Urine Normal Normal [place] Echo 2D w doppler w color co mpleteon 12-30-2019 [facility] Transthoracic Echocardiography Report (TTE) Patient Name NATHAN Date of Study 12/30/2019 GAEL Al Date of 1995 Gender Female Age 24 year(s) Race Room Number Height: 68 inch, 172.72 cm Corporate ID [id number] Weight: 252 pounds, 114.3 kg # Patient Acct [id number] BSA: 2.25 m^2 BMI: 38.32 # kg/m^2 MR # [id number] [employer]eter[employer] Manager Darlene Werner Interpreting Physician Silvio Gr Fellow Referring Nurse Practitioner Interpreting Referring Physician Silvio Gr Fellow Type of Study TTE procedure:2D Echocardiogram, M-Mode, Doppler, Color Doppler. Procedure Date Date: 12/30/2019 Start: 11:59 AM Study Location: [facility] Indications:Tachycardi a. History / Tech. 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 Procedure Date Date: 12/30/2019 Start: 11:59 AM Study Location: [facility] Indications:Tachycardi a. History / Tech. Comments: [...] Wall E' velocity:0.21 m/s Lateral Wall E/E':3.45 [facility] BUNon 12-18-2019 Urea nitrogen [Mass/Vol] 6 mg/dL 6 - 20 mg/dL [place] Creatinine Clearanceon 12-17 Creatinine [Mass/Vol] 114.5 mg/dL 28 - 2 17 mg/dL [place] Creatinine [Mass/Vol] 0.49 mg/dL Low 0.5 - 0.9 mg/dL [place] Creatinine Clearance 234.3 High [place] Interpretation and review of laboratory results Abnormal [place], [place] Length Of Collection 24 h [place], [place] Patient Height 173 cm [place], [place] Volume 1725 mL [place] Creatinine, Serumon 12-18-19 20 Creatinine [Mass/Vol] 0.48 mg/dL Low 0.5 - 0.9 mg/dL [place] GFR >60 >60 mL/min [place] GFR Non- >60 >60 mL/min [place] Interpretation and review of laboratory results Abnormal [place] Creatinine, urine, timedon 0 12-18-2019 Creatinine Timed Ur NOT REPORTED mg/ X h [place] Creatinine, 24H Ur 1997 High [place], [place] Creatinine, Ur 115.8 mg/dL [place] Metabolic Panelon 12-18-2019 GFR/1.73 sq M predicted among non-blacks MDRD (S/P/Bld) [Vol rate/Area] [place], [place] Comment on above: Average GFR for 20-2 9 years old: 116 mL/min/1.73sq m Chronic Kidney Disease: <60 mL/min/1.73sq m Kidney failure: <15 mL/min/1.73sq m eGFR calculated using average adult body mass. Additional eGFR calculator available at: http://www.Seed&Spark.Meme/multiple_crcl_2012.htm Stage 1: Some kidney damage normal GFR Stage 2: Mild kidney damage GFR 60-89 Stage 3: Moderate kidney damage GFR 30-59 Stage 4: Severe kidney damage GFR 15-29 Stage 5: Severe kidney damage GFR <15 ESRD - chronic treatment by dialysis or transplant Otheron 12-18-2019 Hours Collected 24 h [place] Interpretation and review of laboratory results Abnormal [place], [place] Volume 1725 mL [place] Protein, urine, timedon 11-22 Protein (U) [Mass/Vol] NOT REPORTED mg/X h [place] Protein (U) [Mass/Vol] 30 mg/dL [place] Protein (U) [Mass/Vol] 518 mg/dL High <151 mg/24 h [place] ABO, External Resulton 11-22 ABO, External Result B [place] C. Trachomatis, External Res ulton 11-23-2019 C. Trachomatis, External Result Negative [place], [place] HIV, External Resulton 11-22 HIV, External Result non reactive [place] Hepatitis B, External Result on 11-23-2019 Hep B, External Result Negative [place], [place] Hepatitis C Antibody, Paper Feeder al Resulton 11-23-2019 Hepatitis C Antibody, External Result non reactive [place] N. Gonorrhoeae, External Res ulton 11-23-2019 N. Gonorrhoeae, External Result Negative [place] Otheron 11-23-2019 Labs verified by Macy Casas RN and Kael Haas RN [place] RPR, External Labon 11-23-19 20 RPR, External Result non reactive [place] Rh Factor, External Resulton 11-23-2019 Rh Factor, External Result Positive [place] Rubella Titer, External Resu lton 11-23-2019 Rubella Titer, External Result NONIMMUNE [place] CBC Auto DifferentialOrdered By: Rod Conte on 09-24-2019 Absolute Eos # 0.14 [facility] Work Phone: Absolute Immature Granulocyte 0.03 [facility] Work Phone: Absolute Lymph # 3.05 [facility] Work Phone: Absolute [place] # 0.61 [facility] Work Phone: Basophils (Bld) [#/Vol] 0.05 10*3/uL [facility] Work Phone: Basophils/100 WBC (Bld) 0 % 0 - 2 % [employer] Phone: Differential Type NOT REPORTED [employer] Phone: Eosinophils/100 WBC (Bld) 1 % 1 - 4 % [employer] Phone: Erythrocyte distribution width (RBC) [Ratio] 12.8 % 11.8 - 14.4 % [employer] Phone: Hematocrit (Bld) [Volume fraction] 44.3 % 36.3 - 47.1 % [employer] Phone: Hemoglobin (Bld) [Mass/Vol] 14.7 g/dL 11.9 - 15.1 g/dL [employer] Phone: Immature granulocytes/100 WBC (Bld) 0 % 0 [employer] Phone: Interpretation and review of laboratory results Abnormal [employer] Phone: Lymphocytes/100 WBC (Bld) 26 % 24 - 43 % [employer] Phone: MCH (RBC) [Entitic mass] 30.0 pg 25.2 - 33.5 pg [employer] Phone: MCHC (RBC) [Mass/Vol] 33.2 g/dL 28.4 - 34.8 g/dL [employer] Phone: MCV (RBC) [Entitic vol] 90.4 fL 82.6 - 102.9 fL [employer] Phone: Monocytes/100 WBC (Bld) 5 % 3 - 12 % [employer] Phone: NRBC Automated 0.0 0.0 per 100 WBC [employer] Phone: Platelet Estimate NOT REPORTED [employer] Phone: Platelet mean volume (Bld) [Entitic vol] 10.6 fL 8.1 - 13.5 fL [employer] Phone: Platelets (Bld) [#/Vol] 314 10*3/uL [employer] Phone: RBC (Bld) [#/Vol] 4.90 10*6/uL 3.95 - 5.1 1 m/uL [employer] Phone: RBC morphology finding Nom (Bld) NOT REPORTED [employer] Phone: Segmented neutrophils/100 WBC (Bld) 68 % High 36 - 65 % 50 [employer] Work Phone: Segs Absolute 7.82 [facility] Work Phone: WBC (Bld) [#/Vol] 11.7 10*3/uL High [employer] Phone: WBC Morphology NOT REPORTED [employer] Work Phone: Comprehensive Metabolic Pane l w/ Reflex to MGOrdered By: Rod Conte on 09-24-2019 Albumin [Mass/Vol] 4.3 g/dL 3.5 - 5.2 g/dL [employer] Phone: Albumin/Globulin [Mass ratio] 1.3 {ratio} [employer] Phone: ALP [Catalytic activity/Vol] 92 U/L 35 - 104 U/L [employer] Phone: ALT [Catalytic activity/Vol] 32 U/L 5 - 33 U/L [employer] Phone: Anion gap [Moles/Vol] 14 mmol/L 9 - 17 mmol/L [employer] Phone: AST [Catalytic activity/Vol] 28 U/L <32 [employer] Phone: Bilirubin [Mass/Vol] 0.40 mg/dL 0.3 - 1 .2 mg/dL [employer] Phone: Bun/Cre Ratio 14 [facility] Work Phone: Calcium [Mass/Vol] 9.8 mg/dL 8.6 - 10. 4 mg/dL [employer] Phone: Chloride [Moles/Vol] 100 mmol/L 98 - 10 7 mmol/L [employer] Phone: CO2 [Moles/Vol] 24 mmol/L 20 - 31 mmol/L [employer] Phone: Creatinine [Mass/Vol] 0.63 mg/dL 0.5 - 0.9 mg/dL [employer] Phone: GFR >60 >60 mL/min [employer] Phone: GFR Comment [employer] Phone: Comment on above: Average GFR for 20-2 9 years old: 116 mL/min/1.73sq m Chronic Kidney Disease: <60 mL/min/1.73sq m Kidney failure: <15 mL/min/1.73sq m eGFR calculated using average adult body mass. Additional eGFR calculator available at: http://www.Profitably/multiple_crcl_2012.htm GFR Non- >60 >60 mL/min [employer] Phone: GFR Staging [employer] Phone: Comment on above: Stage 1: Some kidney damage normal GFR Stage 2: Mild kidney damage GFR 60-89 Stage 3: Moderate kidney damage GFR 30-59 Stage 4: Severe kidney damage GFR 15-29 Stage 5: Severe kidney damage GFR <15 ESRD - chronic treatment by dialysis or transplant Glucose [Mass/Vol] 206 mg/dL High 70 - 99 mg/dL [employer] Phone: Interpretation and review of laboratory results Abnormal [employer] Phone: Potassium [Moles/Vol] 4.0 mmol/L 3.7 - 5.3 mmol/L [employer] Phone: Protein [Mass/Vol] 7.7 g/dL 6.4 - 8.3 g/dL [employer] Phone: Sodium [Moles/Vol] 138 mmol/L 135 - 144 mmol/L [employer] Phone: Urea nitrogen [Mass/Vol] 9 mg/dL 6 - 20 mg/dL [employer] Phone: HCG Qualitative, SerumOrdere d By: Rod Conte on 09-24-2019 hCG Qual Positive Abnormal NEGATIVE [employer] Phone: Comment on above: If HCG results do not concur with clinical observations, additional testing to confirm result is recommended. This test is not labeled for use as a tumor marker. [employer] has confirmed the use of plasma for this test. This has not been cleared or approved by the U.S. Food and Drug Administration. The FDA has determined that such clearance is not necessary. Interpretation and review of laboratory results Abnormal [employer] Phone: LipaseOrdered By: Rod gomez on 09-24-2019 Lipase [Catalytic activity/Vol] 49 U/L 13 - 60 U/L [employer] Phone: Rapid influenza A/B antigens Ordered By: Rod Conte on 09-24-2019 Direct Exam Presumptive negative for the presence of Influenza A and Influenza B antigen. PCR confirmation of negative results is recommended, since the antigen present in the specimen may be below the detection limit of the test. [employer] Phone: Special Requests NOT REPORTED [employer] Phone: Specimen Description .NASOPHARYNGEAL SWAB [employer] Phone: XR CHEST STANDARD (2 VW)Orde red By: Rod Conte on 09-24-2019 Increased density le ft retrocardiac region likely a confluence of vascular shadows or atelectasis There is no consolidation to suggest pneumonia. [employer] Phone: EXAMINATION: TWO XRA Y VIEWS OF THE CHEST 09/24/2019 8:33 pm COMPARISON: December 04, 2018 HISTORY: ORDERING SYSTEM PROVIDED HISTORY: cough TECHNOLOGIST PROVIDED HISTORY: cough FINDINGS: There is a small amount of increased density in the left retrocardiac region. There is no corresponding opacity on the lateral view. There is no consolidation otherwise. There is no pneumothorax. [employer] Phone: Pe[facility] Incoming Radiant Results From walkby - 09/24/2019 8:46 PM EST EXAMINATION: TWO [...] There is no consolidation to suggest pneumonia. [employer] Phone: CT ABDOMEN PELVIS W IV CONTR [place] 07-29-2019 The appendix is normal. A 2.8 cm right ovarian cyst is suspected. There is a history of PCOS. Diffuse fatty infiltration of the liver. RECOMMENDATIONS: 2.8 cm benign appearing ovarian cyst. No follow-up imaging is recommended. Reference: J Am Enrique Radiol 2013;10:675-681 [facility] [place], [facility] Incoming Radiant Results From walkby - 07/29/2019 1:00 AM EST EXAMINATION: CT [...] recommended. Reference: J Am Enrique Radiol 2013;10:675-681 [place], [place] EXAMINATION: CT OF T HE ABDOMEN AND PELVIS WITH CONTRAST 07/29/2019 12:19 [...] Bones/Soft Tissues: No acute bone finding. Obesity. [place] Comprehensive Metabolic Pane l w/ Reflex to MGon 07-29-2019 Albumin [Mass/Vol] 4.2 g/dL 3.5 - 5.2 g/dL [place] Albumin/Globulin [Mass ratio] 1.1 {ratio} [place] ALP [Catalytic activity/Vol] 88 U/L 35 - 104 U/L [place] ALT [Catalytic activity/Vol] 35 U/L High 5 - 33 U/L [place] Anion gap [Moles/Vol] 14 mmol/L 9 - 17 mmol/L [place] AST [Catalytic activity/Vol] 38 U/L High <32 [place], [place] Bilirubin Ql (U) 0.33 mg/dL 0.3 - 1.2 mg/dL [place] Bun/Cre Ratio 9 [place] Calcium [Mass/Vol] 9.5 mg/dL 8.6 - 10. 4 mg/dL [place] Chloride [Moles/Vol] 98 mmol/L 98 - 10 7 mmol/L [place] CO2 [Moles/Vol] 23 mmol/L 20 - 31 mmol/L [place] Creatinine [Mass/Vol] 0.74 mg/dL 0.5 - 0.9 mg/dL [place] GFR >60 >60 mL/min [place] GFR Non- >60 >60 mL/min [place] Glucose [Mass/Vol] 267 mg/dL High 70 - 99 mg/dL [place] Interpretation and review of laboratory results Abnormal [place] Potassium [Moles/Vol] 3.8 mmol/L 3.7 - 5.3 mmol/L [place] Protein [Mass/Vol] 7.9 g/dL 6.4 - 8.3 g/dL [place] Sodium [Moles/Vol] 135 mmol/L 135 - 144 mmol/L [place] Urea nitrogen [Mass/Vol] 7 mg/dL 6 - 20 mg/dL [place] Lactic Acidon 07-29-2019 Lactate [Moles/Vol] 2.2 mmol/L 0.5 - 2. 2 mmol/L [place] Lipaseon 07-29-2019 Lipase [Catalytic activity/Vol] 60 U/L 13 - 60 U/L [place] Metabolic Panelon 07-29-2019 GFR/1.73 sq M predicted among non-blacks MDRD (S/P/Bld) [Vol rate/Area] [place] Comment on above: Average GFR for 20-2 9 years old: 116 mL/min/1.73sq m Chronic Kidney Disease: <60 mL/min/1.73sq m Kidney failure: <15 mL/min/1.73sq m eGFR calculated using average adult body mass. Additional eGFR calculator available at: http://www.Profitably/Reclip.It_crcl_2011.htm Stage 1: Some kidney damage normal GFR Stage 2: Mild kidney damage GFR 60-89 Stage 3: Moderate kidney damage GFR 30-59 Stage 4: Severe kidney damage GFR 15-29 Stage 5: Severe kidney damage GFR <15 ESRD - chronic treatment by dialysis or transplant APTTon 07-28-2019 aPTT Coag (Bld) [Time] 25.0 s Me [place] CBC Auto Differentialon Basophils (Bld) [#/Vol] 0.03 10*3/uL [place] Basophils/100 WBC (Bld) 0 % 0 - 2 % [place] Differential Type NOT REPORTED [place] Eosinophils (Bld) [#/Vol] 0.14 10*3/uL [place] Eosinophils/100 WBC (Bld) 1 % 1 - 4 % [place] Erythrocyte distribution width (RBC) [Ratio] 12.4 % 11.8 - 14.4 % [place] Hematocrit (Bld) [Volume fraction] 43.7 % 36.3 - 47.1 % [place] Hemoglobin (Bld) [Mass/Vol] 14.4 g/dL 11.9 - 15.1 g/dL [place] Immature granulocytes (Bld) [#/Vol] 0 % 0 [place] Immature granulocytes (Bld) [#/Vol] 0.04 10*3/uL [place] Lymphocytes (Bld) [#/Vol] 3.00 10*3/uL [place] Lymphocytes/100 WBC (Bld) 28 % 24 - 43 % [place] MCH (RBC) [Entitic mass] 29.9 pg 25.2 - 33.5 pg [place] MCHC (RBC) [Mass/Vol] 33.0 g/dL 28.4 - 34.8 g/dL [place] MCV (RBC) [Entitic vol] 90.9 fL 82.6 - 102.9 fL [place] Monocytes (Bld) [#/Vol] 0.58 10*3/uL [place] Monocytes/100 WBC (Bld) 5 % 3 - 12 % [place] Platelet mean volume (Bld) [Entitic vol] 10.8 fL 8.1 - 13.5 fL [place] Platelets (Bld) [#/Vol] NOT REPORTED [place] Platelets (Bld) [#/Vol] 291 10*3/uL [place] RBC (Bld) [#/Vol] 4.81 10*6/uL 3.95 - 5.1 1 m/uL [place] RBC morphology finding Nom (Bld) NOT REPORTED [place] Segmented neutrophils/100 WBC (Bld) 65 % 36 - 65 % [place] Segs Absolute 6.97 [place] WBC (Bld) [#/Vol] 0.0 10*3/uL 0.0 per 10 0 WBC [place] WBC (Bld) [#/Vol] 10.8 10*3/uL [place] WBC Morphology NOT REPORTED [place] HCG Qualitative, Serumon hCG Qual Negative NEGATIVE [place] Comment on above: Specimens with hCG l evels near the threshold of the test (25 mIU/mL) may give a negative or indeterminate result. In such cases, another test should be performed with a new specimen in 48-72 hours. If early is suspected clinically in this setting, correlation with quantitative serum b-hCG level is suggested. [facility] has confirmed the use of plasma for this test. This has not been cleared or approved by the U.S. Food and Drug Administration. The FDA has determined that such clearance is not necessary. Microscopic Urinalysison Amorphous, UA NOT REPORTED None [place] Bacteria, UA NOT REPORTED None [place] Casts UA NOT REPORTED /LPF [place] Crystals UA NOT REPORTED None /HPF [place] Epithelial Cells UA 2 TO 5 [place] Interpretation and review of laboratory results Abnormal [place] Mucus, UA 2+ Abnormal None [place] Other Observations UA NOT REPORTED NOT REQ. [place] RBC (U) [#/Vol] 0 TO 2 [place] Renal Epithelial, Urine NOT REPORTED 0 /HPF [place] Trichomonas, UA NOT REPORTED None [facility] [place] WBC, UA 2 TO 5 [place] Yeast, UA NOT REPORTED None [place] - [place] Protime-INRon 07-28-2019 INR Coag (PPP) [Relative time] 1.0 {INR} [place] PT Coag (PPP) [Time] 10.1 s [place] Urinalysis, reflex to micros copicon 07-28-2019 Bilirubin Urine Negative NEGATIVE [place] Color, UA YELLOW YELLOW [place] Glucose, Ur TRACE Abnormal NEGATIVE [place] Interpretation and review of laboratory results Abnormal [place] Ketones Ql (U) Negative NEGATIVE [place] Leukocyte esterase Test strip Ql (U) Negative NEGATIVE [place] Nitrite, Urine Negative NEGATIVE [place] pH, UA 5.5 [place] Protein (U) [Mass/Vol] TRACE Abnormal NEGATIVE [place] Specific Onyx, UA >1.030 High [place] Turbidity UA CLEAR CLEAR [place] Urinalysis Comments NOT REPORTED [place] Urine Hgb Negative NEGATIVE [place] Urobilinogen, Urine Normal Normal [place] CBC Auto Differentialon Basophils (Bld) [#/Vol] 0.03 10*3/uL [place] Basophils/100 WBC (Bld) 0 % 0 - 2 % [place] Differential Type NOT REPORTED [place] Eosinophils (Bld) [#/Vol] 0.18 10*3/uL [place] Eosinophils/100 WBC (Bld) 2 % 1 - 4 % [place] Erythrocyte distribution width (RBC) [Ratio] 12.9 % 11.8 - 14.4 % [place] Hematocrit (Bld) [Volume fraction] 40.8 % 36.3 - 47.1 % [place] Hemoglobin (Bld) [Mass/Vol] 13.5 g/dL 11.9 - 15.1 g/dL [place] Immature granulocytes (Bld) [#/Vol] 1 % High 0 [place] Immature granulocytes (Bld) [#/Vol] 0.06 10*3/uL [place] Interpretation and review of laboratory results Abnormal [place] Lymphocytes (Bld) [#/Vol] 3.21 10*3/uL [place] Lymphocytes/100 WBC (Bld) 35 % 24 - 43 % [place] MCH (RBC) [Entitic mass] 30.1 pg 25.2 - 33.5 pg [place] MCHC (RBC) [Mass/Vol] 33.1 g/dL 28.4 - 34.8 g/dL [place] MCV (RBC) [Entitic vol] 90.9 fL 82.6 - 102.9 fL [place] Monocytes (Bld) [#/Vol] 0.47 10*3/uL [place] Monocytes/100 WBC (Bld) 5 % 3 - 12 % [place] Platelet mean volume (Bld) [Entitic vol] 10.4 fL 8.1 - 13.5 fL [place] Platelets (Bld) [#/Vol] NOT REPORTED [place] Platelets (Bld) [#/Vol] 337 10*3/uL [place] RBC (Bld) [#/Vol] 4.49 10*6/uL 3.95 - 5.1 1 m/uL [place] RBC morphology finding Nom (Bld) NOT REPORTED [place] Segmented neutrophils/100 WBC (Bld) 57 % 36 - 65 % [place] Segs Absolute 5.25 [place] WBC (Bld) [#/Vol] 9.2 10*3/uL [place] WBC (Bld) [#/Vol] 0.0 10*3/uL 0.0 per 10 0 WBC [place] WBC Morphology NOT REPORTED [place] Comprehensive Metabolic Pane l w/ Reflex to MGon 05-25-2019 Albumin [Mass/Vol] 4 g/dL 3.5 - 5.2 g/dL [place] Albumin/Globulin [Mass ratio] 1.1 {ratio} [place] ALP [Catalytic activity/Vol] 84 U/L 35 - 104 U/L [place] ALT [Catalytic activity/Vol] 34 U/L High 5 - 33 U/L [place] Anion gap [Moles/Vol] 14 mmol/L 9 - 17 mmol/L [place] AST [Catalytic activity/Vol] 35 U/L High <32 [place] Bilirubin Ql (U) 0.26 mg/dL Low 0.3 - 1.2 mg/dL [place] Bun/Cre Ratio 14 [place] Calcium [Mass/Vol] 9.7 mg/dL 8.6 - 10. 4 mg/dL [place] Chloride [Moles/Vol] 103 mmol/L 98 - 10 7 mmol/L [place] CO2 [Moles/Vol] 22 mmol/L 20 - 31 mmol/L [place] Creatinine [Mass/Vol] 0.7 mg/dL 0.5 - 0.9 mg/dL [place] GFR >60 >60 mL/min [place] GFR Non- >60 >60 mL/min [place] Glucose [Mass/Vol] 313 mg/dL High 70 - 99 mg/dL [place] Potassium [Moles/Vol] 4.1 mmol/L 3.7 - 5.3 mmol/L [place] Protein [Mass/Vol] 7.6 g/dL 6.4 - 8.3 g/dL [place] Sodium [Moles/Vol] 139 mmol/L 135 - 144 mmol/L [place] Urea nitrogen [Mass/Vol] 10 mg/dL 6 - 20 mg/dL [place] Lipaseon 05-25-2019 Lipase [Catalytic activity/Vol] 75 U/L High 13 - 60 U/L [place] Metabolic Panelon 05-25-2019 GFR/1.73 sq M predicted among non-blacks MDRD (S/P/Bld) [Vol rate/Area] [place] Comment on above: Average GFR for 20-2 9 years old: 116 mL/min/1.73sq m Chronic Kidney Disease: <60 mL/min/1.73sq m Kidney failure: <15 mL/min/1.73sq m eGFR calculated using average adult body mass. Additional eGFR calculator available at: http://www.Seed&Spark.Meme/multiple_crcl_2012.htm Stage 1: Some kidney damage normal GFR Stage 2: Mild kidney damage GFR 60-89 Stage 3: Moderate kidney damage GFR 30-59 Stage 4: Severe kidney damage GFR 15-29 Stage 5: Severe kidney damage GFR <15 ESRD - chronic treatment by dialysis or transplant Microscopic Urinalysison Amorphous, UA NOT REPORTED [facility] [place] Bacteria, UA NOT REPORTED None [place] Casts UA NOT REPORTED /LPF [place] Crystals UA NOT REPORTED None /HPF [facility] [place] Epithelial Cells UA 0 TO 2 [place] Mucus, UA NOT REPORTED None [place] Other Observations UA NOT REPORTED NOT REQ. [place] RBC (U) [#/Vol] 0 TO 2 [place] Renal Epithelial, Urine NOT REPORTED 0 /HPF [place] Trichomonas, UA NOT REPORTED None [place] WBC, UA 2 TO 5 [place] Yeast, UA NOT REPORTED None [place] - [place] Otheron 05-25-2019 Interpretation and review of laboratory results Abnormal [place] , Urineon 9 Beta HCG ( test) Ql (U) Negative NEGATIVE [place] Comment on above: Specimens with hCG l evels near the threshold of the test (25 mIU/mL) may give a negative or indeterminate result. In such cases, another test should be performed with a new specimen in 48-72 hours. If early is suspected clinically in this setting, correlation with quantitative serum b-hCG level is suggested. [facility] has confirmed the use of plasma for this test. This has not been cleared or approved by the U.S. Food and Drug Administration. The FDA has determined that such clearance is not necessary. Urinalysis, reflex to micros copicon 05-25-2019 Bilirubin Urine Negative NEGATIVE [place] Color, UA YELLOW YELLOW [place] Glucose, Ur 2+ Abnormal NEGATIVE [place] Interpretation and review of laboratory results Abnormal [place] Ketones Ql (U) Negative NEGATIVE [place] Leukocyte esterase Test strip Ql (U) Negative NEGATIVE [place] Nitrite, Urine Negative NEGATIVE [place] pH, UA 6.0 [place] Protein (U) [Mass/Vol] TRACE Abnormal NEGATIVE [place] Specific Onyx, UA 1.025 High [place] Turbidity UA CLEAR CLEAR [place] Urinalysis Comments NOT REPORTED [place] Urine Hgb 3+ Abnormal NEGATIVE [place] Urobilinogen, Urine Normal Normal [place] VL DUP LOWER EXTREMITY VENOU S RIGHTon 05-19-2019 [facility] Vascular Lower Extremities DVT Study Procedure Patient Name NATHAN Date of Study 05/19/2019 GAEL Al Date of 1995 Gender Female Age 23 year(s) Race Room Number Corporate ID # [id number] Patient MR # [id number] 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 ! ! 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 ! ! + -------+------+------+ --------- + [facility]- [place] Vital Signs Date Time Vital Sign Value Performing Clinician Facility 06-22-2025 19:36-0400 Diastolic blood pressure 80 mm[Hg] Darryl Ragsdale MD Work Phone: [facility] [employer] 06-22-2025 19:36-0400 Heart rate 98 /min [facility]ryl [facility]agsdale [facility] 06-22-2025 19:36-0400 Respiratory rate 18 /min Darryl [facility]agsdale [facility] [employer] 06-22-2025 19:36-0400 Systolic blood pressure 145 mm[Hg] Darryl Ragsdale MD Work Phone: [employer] 06-22-2025 16:23-0400 Body temperature 97.81 [degF] Darryl Ragsdale MD Work Phone: [employer] 06-22-2025 16:23-0400 SaO2% (BldA) [Mass fraction] 97 % Darryl Ragsdale MD Work Phone: [employer] 06-22-2025 08:30-0400 Body height 172.7 cm Darryl Ragsdale MD Work Phone: [employer] 06-22-2025 08:30-0400 Body mass index (BMI) [Ratio] 38.01 kg/m2 Darryl Ragsdale MD Work Phone: [employer] 06-22-2025 08:30-0400 Body temperature 97.9 [degF] Darryl Ragsdale MD Work Phone: [employer] 06-22-2025 08:30-0400 Body weight 113.4 kg Darryl Ragsdale MD Work Phone: [employer] 06-22-2025 08:30-0400 Diastolic blood pressure 94 mm[Hg] Darryl Ragsdale MD Work Phone: [employer] 06-22-2025 08:30-0400 Heart rate 91 /min Darryl Ragsdale MD Work Phone: [employer] 06-22-2025 08:30-0400 Respiratory rate 20 /min Darryl Ragsdale MD Work Phone: [employer] 06-22-2025 08:30-0400 SaO2% (BldA) [Mass fraction] 96 % Darryl Ragsdale MD Work Phone: [employer] 06-22-2025 08:30-0400 Systolic blood pressure 140 mm[Hg] Darryl Ragsdale MD Work Phone: [employer] 06-13-2025 22:01-0400 Heart rate 88 /min Peter French DO Work Phone: [employer] 06-13-2025 22:01-0400 Respiratory rate 16 /min Peter Swade DO Work Phone: [employer] 06-13-2025 22:01-0400 SaO2% (BldA) [Mass fraction] 98 % Peter Swade DO Work Phone: [employer] 06-13-2025 19:22-0400 Body height 172.7 cm Peter Swade DO Work Phone: [employer] 06-13-2025 19:22-0400 Body mass index (BMI) [Ratio] 36.49 kg/m2 Peter Swade DO Work Phone: [employer] 06-13-2025 19:22-0400 Body temperature 98.6 [degF] Peter Swade DO Work Phone: [employer] 06-13-2025 19:22-0400 Body weight 108.86 kg Peter Swade DO Work Phone: [employer] 06-13-2025 19:22-0400 Diastolic blood pressure 82 mm[Hg] Peter Swade DO Work Phone: [employer] 06-13-2025 19:22-0400 Systolic blood pressure 122 mm[Hg] Peter Swade DO Work Phone: [facility] [employer] 02-17-2025 13:29-0400 Diastolic blood pressure 85 mm[Hg] Best Reynoso MD Work Phone: [facility] 02-17-2025 13:29-0400 Heart rate 82 /min Best Reynoso MD Work Phone: [facility] 02-17-2025 13:29-0400 Systolic blood pressure 119 mm[Hg] Best Reynoso MD Work Phone: [facility] 02-09-2025 19:14-0400 Diastolic blood pressure 76 mm[Hg] Yossi Golden MD Work Phone: [employer] 02-09-2025 19:14-0400 SaO2% (BldA) [Mass fraction] 94 % Yossi Golden MD Work Phone: [employer] 02-09-2025 19:14-0400 Systolic blood pressure 120 mm[Hg] Yossi Golden MD Work Phone: [employer] 02-09-2025 18:29-0400 Body temperature 97.9 [degF] Yossi Golden MD Work Phone: [employer] 02-09-2025 18:29-0400 Heart rate 81 /min Yossi Golden MD Work Phone: [employer] 02-09-2025 18:29-0400 Respiratory rate 16 /min Yossi Golden MD Work Phone: [employer] 02-05-2025 22:23-0400 Diastolic blood pressure 68 mm[Hg] Rod Colmenares MD Work Phone: [employer] 02-05-2025 22:23-0400 Heart rate 79 /min Rod Colmenares MD Work Phone: [employer] 02-05-2025 22:23-0400 Respiratory rate 16 /min Rod Colmenares MD Work Phone: [employer] 02-05-2025 22:23-0400 SaO2% (BldA) [Mass fraction] 100 % Rod Colmenares MD Work Phone: [employer] 02-05-2025 22:23-0400 Systolic blood pressure 114 mm[Hg] Rod Colmenares MD Work Phone: [employer] 02-05-2025 20:21-0400 Body temperature 97 [degF] Rod Colmenares MD Work Phone: [employer] 01-26-2025 03:30-0400 SaO2% (BldA) [Mass fraction] 95 % [facility] 01-26-2025 03:30-0400 Heart rate 70 /min [facility] 01-26-2025 03:30-0400 Diastolic blood pressure 62 mm[Hg] [facility] 01-26-2025 03:30-0400 Mean blood pressure 73 mm[Hg] [facility] 01-26-2025 03:30-0400 Respiratory rate 17 /min [facility] 01-26-2025 03:30-0400 Systolic blood pressure 94 mm[Hg] [facility] 01-26-2025 03:00-0400 Heart rate 69 /min [facility] 01-26-2025 03:00-0400 SaO2% (BldA) [Mass fraction] 94 % [facility] 01-26-2025 03:00-0400 Diastolic blood pressure 60 mm[Hg] [facility] 01-26-2025 03:00-0400 Mean blood pressure 74 mm[Hg] [facility] 01-26-2025 03:00-0400 Systolic blood pressure 103 mm[Hg] [facility] 01-26-2025 02:07-0400 Diastolic blood pressure 63 mm[Hg] [facility] 01-26-2025 02:07-0400 Systolic blood pressure 105 mm[Hg] [facility] 01-26-2025 02:07-0400 Heart rate 61 /min [facility] 01-26-2025 02:07-0400 Mean blood pressure 77 mm[Hg] [facility] 01-26-2025 02:07-0400 Respiratory rate 18 /min [facility] 01-26-2025 02:07-0400 SaO2% (BldA) [Mass fraction] 98 % [facility] 01-26-2025 01:04-0400 Body temperature 98.24 [degF] [facility]a [facility] 01-26-2025 01:04-0400 Heart rate 92 /min [facility] 01-01-2025 01:44-0400 Body temperature 98.29 [degF] Imelda Huynh MD Work Phone: [facility] [employer] [facility] [employer] 01-01-2025 01:00-0400 SaO2% (BldA) [Mass fraction] 96 % Imelda Huynh MD Work Phone: [facility] [employer] 01-01-2025 00:34-0400 Diastolic blood pressure 85 mm[Hg] Imelda Huynh MD Work Phone: [facility] [employer] 01-01-2025 00:34-0400 Heart rate 95 /min Imelda Huynh MD Work Phone: [facility] [employer] 01-01-2025 00:34-0400 Respiratory rate 18 /min Imelda Huynh MD Work Phone: [facility] [employer] 01-01-2025 00:34-0400 Systolic blood pressure 143 mm[Hg] Imelda Huynh MD Work Phone: [facility] [employer] 12-24-2024 10:55-0400 Body height 172.7 cm Pacc 1 Work Phone: [facility] 12-24-2024 10:55-0400 Body mass index (BMI) [Ratio] 37.11 kg/m2 Pac 1 Work Phone: [facility] 12-24-2024 10:55-0400 Body temperature 97.5 [degF] Pac 1 Work Phone: [facility] 12-24-2024 10:55-0400 Body weight 110.7 kg Pacc 1 Work Phone: [facility] 12-24-2024 10:55-0400 Diastolic blood pressure 98 mm[Hg] Pacc 1 Work Phone: [facility] 12-24-2024 10:55-0400 Heart rate 85 /min Pacc 1 Work Phone: [facility] 12-24-2024 10:55-0400 Respiratory rate 20 /min Pacc 1 Work Phone: [facility] 12-24-2024 10:55-0400 SaO2% (BldA) [Mass fraction] 98 % Pacc 1 Work Phone: [facility] 12-24-2024 10:55-0400 Systolic blood pressure 147 mm[Hg] Pacc 1 Work Phone: [facility] 12-02-2024 13:16-0400 Body height 172.7 cm Yajaira Lackey DO Work Phone: [facility] 12-02-2024 13:16-0400 Body mass index (BMI) [Ratio] 36.54 kg/m2 Yajaira Lackey DO Work Phone: [facility] 12-02-2024 13:16-0400 Body weight 109 kg Yajaira Lackey DO Work Phone: [facility] 12-02-2024 13:16-0400 Diastolic blood pressure 87 mm[Hg] Yajaira Lackey DO Work Phone: [facility] 12-02-2024 13:16-0400 Heart rate 87 /min Yajaira Lackey DO Work Phone: [facility] 12-02-2024 13:16-0400 Systolic blood pressure 128 mm[Hg] Yajaira Lackey DO Work Phone: [facility] 11-06-2024 08:45-0500 Body temperature 97.7 [degF] Ric Ambrose MD Work Phone: [facility] 11-06-2024 08:45-0500 Diastolic blood pressure 68 mm[Hg] Ric Ambrose MD Work Phone: [facility] 11-06-2024 08:45-0500 Heart rate 74 /min Ric Ambrose MD Work Phone: [facility] [employer] 11-06-2024 08:45-0500 Respiratory rate 18 /min Ric Ambrose MD Work Phone: [facility] [employer] 11-06-2024 08:45-0500 SaO2% (BldA) [Mass fraction] 97 % Ric Ambrose MD Work Phone: [facility] [employer] 11-06-2024 08:45-0500 Systolic blood pressure 119 mm[Hg] Ric Ambrose MD Work Phone: [facility] [employer] 11-06-2024 04:37-0500 Body mass index (BMI) [Ratio] 37.91 kg/m2 Ric Ambrose MD Work Phone: [facility] [employer] 11-06-2024 04:37-0500 Body weight 113.08 kg Ric Ambrose MD Work Phone: [facility] [employer] 11-05-2024 08:57-0500 Body height 172.7 cm Ric Ambrose MD Work Phone: [facility] [employer] 10-21-2024 10:51-0500 Respiratory rate 18 /min Kaylie Sommer DO Work Phone: [facility] [employer] 10-21-2024 09:40-0500 Body height 172.7 cm Kaylie Sommer DO Work Phone: [facility] [employer] 10-21-2024 06:45-0500 Body temperature 97 [degF] Kaylie Sommer DO Work Phone: [facility] [employer] 10-21-2024 06:45-0500 Diastolic blood pressure 77 mm[Hg] Kaylie Sommer DO Work Phone: [facility] [employer] 10-21-2024 06:45-0500 Heart rate 66 /min Kaylie Sommer DO Work Phone: [facility] [employer] 10-21-2024 06:45-0500 SaO2% (BldA) [Mass fraction] 93 % Kaylie Sommer DO Work Phone: [facility] [employer] 10-21-2024 06:45-0500 Systolic blood pressure 138 mm[Hg] Kaylie Sommer DO [facility] 10-20-2024 15:30-0500 Body mass index (BMI) [Ratio] 36.81 kg/m2 Kaylie Sommer DO Work Phone: [facility] [employer] 10-20-2024 15:30-0500 Body weight 109.8 kg Kaylie Sommer DO [facility] Phone[facility] 10-15-2024 19:00-0500 Diastolic blood pressure 87 mm[Hg] Cameron Conklin [facility] 10-15-2024 19:00-0500 Heart rate 97 /min Cameron Rubin [facility] 10-15-2024 19:00-0500 Mean blood pressure 101 mm[Hg] Cameron Rubin [facility] 10-15-2024 19:00-0500 Systolic blood pressure 130 mm[Hg] Cameron Rubin [facility] 10-15-2024 18:55-0500 Diastolic blood pressure 80 mm[Hg] Cameron Rubin [facility] 10-15-2024 18:55-0500 Heart rate 99 /min Cameron Rubin [facility] 10-15-2024 18:55-0500 Mean blood pressure 97 mm[Hg] Cameron Rubin [facility] 10-15-2024 18:55-0500 Respiratory rate 16 /min Cameron Conklin [facility] 10-15-2024 18:55-0500 SaO2% (BldA) [Mass fraction] 96 % Cameron Rubin [facility] 10-15-2024 18:55-0500 Systolic blood pressure 132 mm[Hg] Cameron Rubin [facility] 10-15-2024 18:03-0500 Body temperature 98.06 [degF] Cameron Rubin [facility] 10-15-2024 18:03-0500 Diastolic blood pressure 82 mm[Hg] Cameron Conklin [facility] 10-15-2024 18:03-0500 Heart rate 90 /min Cameron Conklin [facility] 10-15-2024 18:03-0500 SaO2% (BldA) [Mass fraction] 95 % Cameron Rubin [facility] 10-15-2024 18:03-0500 Systolic blood pressure 145 mm[Hg] Cameron Rubin [facility] 10-13-2024 13:37-0500 Blood Pressure Location Lu Sarmini [facility] 10-13-2024 13:37-0500 Diastolic blood pressure 84 mm[Hg] Lu Sarmini [facility] 10-13-2024 13:37-0500 Heart rate 94 /min Lu Sarmini [facility] 10-13-2024 13:37-0500 Systolic blood pressure 115 mm[Hg] Lu Sarmini [facility] 10-08-2024 22:00-0500 Heart rate 75 /min Alphonso Sullivan [facility] 10-08-2024 22:00-0500 Mean blood pressure 105 mm[Hg] [facility] 10-08-2024 22:00-0500 Systolic blood pressure 124 mm[Hg] [facility] 10-08-2024 21:33-0500 Diastolic blood pressure 90 mm[Hg] [facility] 10-08-2024 21:33-0500 Heart rate 67 /min [facility] 10-08-2024 21:33-0500 Mean blood pressure 107 mm[Hg] [facility] 10-08-2024 21:33-0500 Respiratory rate 16 /min [facility] 10-08-2024 21:33-0500 SaO2% (BldA) [Mass fraction] 96 % [facility] 10-08-2024 21:33-0500 Systolic blood pressure 142 mm[Hg] [facility] 10-08-2024 20:12-0500 Diastolic blood pressure 95 mm[Hg] [facility] 10-08-2024 20:12-0500 Heart rate 80 /min [facility] 10-08-2024 20:12-0500 Mean blood pressure 116 mm[Hg] [facility] 10-08-2024 20:12-0500 Respiratory rate 18 /min [facility] 10-08-2024 20:12-0500 SaO2% (BldA) [Mass fraction] 95 % [facility] 10-08-2024 20:12-0500 Systolic blood pressure 157 mm[Hg] [facility] 10-08-2024 17:50-0500 Body temperature 97.7 [degF] [facility] 10-08-2024 17:50-0500 Heart rate 94 /min [facility] 10-08-2024 10:03-0500 Body height 172.7 cm Yossi Golden MD Work Phone: [facility] 10-08-2024 10:03-0500 Body mass index (BMI) [Ratio] 37.4 kg/m2 Yossi Golden MD Work Phone: [facility] 10-08-2024 10:03-0500 Body temperature 97.5 [degF] Yossi Golden MD Work Phone: [facility] 10-08-2024 10:03-0500 Body weight 111.58 kg Yossi Golden MD Work Phone: [facility] 10-08-2024 10:03-0500 Diastolic blood pressure 70 mm[Hg] Yossi Golden MD Work Phone: [facility] 10-08-2024 10:03-0500 Heart rate 81 /min Yossi Golden MD Work Phone: [facility] 10-08-2024 10:03-0500 Respiratory rate 22 /min Yossi Golden MD Work Phone: [facility] 10-08-2024 10:03-0500 SaO2% (BldA) [Mass fraction] 98 % Yossi Golden MD Work Phone: [facility] 10-08-2024 10:03-0500 Systolic blood pressure 120 mm[Hg] Yossi Golden MD Work Phone: [facility] 10-06-2024 19:41-0500 Diastolic blood pressure 92 mm[Hg] Phan Du [facility] 10-06-2024 19:41-0500 Heart rate 92 /min Phan Du [facility] 10-06-2024 19:41-0500 Respiratory rate 18 /min Phan Du [facility] 10-06-2024 19:41-0500 SaO2% (BldA) [Mass fraction] 96 % Phan Sandy [facility] 10-06-2024 19:41-0500 Systolic blood pressure 132 mm[Hg] Phan Sandy [facility] 10-06-2024 13:12-0500 Body temperature 97.88 [degF] Phan Sandy [facility] 10-06-2024 13:12-0500 Diastolic blood pressure 104 mm[Hg] Phan Sandy [facility] 10-06-2024 13:12-0500 Heart rate 92 /min Phan Sandy [facility] 10-06-2024 13:12-0500 Respiratory rate 16 /min Phan Sandy [facility] 10-06-2024 13:12-0500 SaO2% (BldA) [Mass fraction] 96 % Phan Sandy [facility] 10-06-2024 13:12-0500 Systolic blood pressure 151 mm[Hg] Phan Sandy [facility] 10-05-2024 02:08-0500 Diastolic blood pressure 87 mm[Hg] Rob Soco [facility] 10-05-2024 02:08-0500 Heart rate 74 /min Rob Soco [facility] 10-05-2024 02:08-0500 Mean blood pressure 100 mm[Hg] Rob Soco [facility] 10-05-2024 02:08-0500 Respiratory rate 16 /min Rob Soco [facility] 10-05-2024 02:08-0500 SaO2% (BldA) [Mass fraction] 95 % Rob Soco [facility] 10-05-2024 02:08-0500 Systolic blood pressure 127 mm[Hg] Rob Soco [facility] 10-05-2024 01:00-0500 Diastolic blood pressure 44 mm[Hg] Rob Soco [facility] 10-05-2024 01:00-0500 Heart rate 69 /min Rob Soco [facility] 10-05-2024 01:00-0500 Mean blood pressure 70 mm[Hg] Rob Soco [facility] 10-05-2024 01:00-0500 Respiratory rate 17 /min Rob Soco [facility] 10-05-2024 01:00-0500 SaO2% (BldA) [Mass fraction] 95 % Rob Soco [facility] 10-05-2024 01:00-0500 Systolic blood pressure 122 mm[Hg] Rob Soco [facility] 10-05-2024 00:00-0500 Diastolic blood pressure 85 mm[Hg] Rob Soco [facility] 10-05-2024 00:00-0500 Heart rate 67 /min Rob Soco [facility] 10-05-2024 00:00-0500 Mean blood pressure 99 mm[Hg] Rob Soco [facility] 10-05-2024 00:00-0500 Respiratory rate 18 /min Rob Soco [facility] 10-05-2024 00:00-0500 SaO2% (BldA) [Mass fraction] 97 % Rob Soco [facility] 10-05-2024 00:00-0500 Systolic blood pressure 127 mm[Hg] Rob Soco [facility] 10-04-2024 19:01-0500 Body temperature 98.24 [degF] Rob Leach [facility] 10-04-2024 19:01-0500 Heart rate 90 /min Rob Leach [facility] 09-30-2024 12:00-0500 Diastolic blood pressure 90 mm[Hg] Cameron Conklin [facility] 09-30-2024 12:00-0500 Heart rate 95 /min Cameron Rubin [facility] 09-30-2024 12:00-0500 Mean blood pressure 105 mm[Hg] Cameron Rubin [facility] 09-30-2024 12:00-0500 Respiratory rate 20 /min Cameron Rubin [facility] 09-30-2024 12:00-0500 SaO2% (BldA) [Mass fraction] 97 % Cameron Rubin [facility] 09-30-2024 12:00-0500 Systolic blood pressure 136 mm[Hg] Cameron Rubin [facility] 09-30-2024 11:30-0500 Diastolic blood pressure 94 mm[Hg] Cameron Rubin [facility] 09-30-2024 11:30-0500 Heart rate 89 /min Cameron Rubin [facility] 09-30-2024 11:30-0500 Mean blood pressure 111 mm[Hg] Cameron Rubin [facility] 09-30-2024 11:30-0500 Respiratory rate 18 /min Cameron Rubin [facility] 09-30-2024 11:30-0500 SaO2% (BldA) [Mass fraction] 94 % Cameron Rubin [facility] 09-30-2024 11:30-0500 Systolic blood pressure 146 mm[Hg] Cameron Conklin [facility] 09-30-2024 11:00-0500 Diastolic blood pressure 102 mm[Hg] Cameron Conklin [facility] 09-30-2024 11:00-0500 Mean blood pressure 118 mm[Hg] Cameron Conklin [facility] 09-30-2024 11:00-0500 Systolic blood pressure 150 mm[Hg] Cameron Conklin [facility] 09-30-2024 10:48-0500 Body temperature 98.06 [degF] Cameron Conklin [facility] 09-30-2024 10:48-0500 Heart rate 97 /min Cameron Conklin [facility] 09-17-2024 12:01-0500 Body temperature 98.1 [degF] Rod Colmenares MD Work Phone: [employer] 09-17-2024 12:00-0500 Body mass index (BMI) [Ratio] 37.1 kg/m2 Rod Colmenares MD Work Phone: [facility] [employer] 09-17-2024 12:00-0500 Body weight 110.68 kg Rod Colmenares MD Work Phone: [employer] 09-17-2024 12:00-0500 Diastolic blood pressure 94 mm[Hg] Rod Colmenares MD Work Phone: [employer] 09-17-2024 12:00-0500 Heart rate 100 /min Rod Colmenares MD Work Phone: [employer] 09-17-2024 12:00-0500 Respiratory rate 16 /min Rod Colmenares MD Work Phone: [facility] [employer] 09-17-2024 12:00-0500 SaO2% (BldA) [Mass fraction] 96 % Rod Colmenares MD Work Phone: [facility] 09-17-2024 12:00-0500 Systolic blood pressure 135 mm[Hg] Rod Colmenares MD Work Phone: [facility] 09-10-2024 12:23-0500 Blood Pressure Location Lu Sarmini [facility] 09-10-2024 12:23-0500 Diastolic blood pressure 64 mm[Hg] Lu Sarmini [facility] 09-10-2024 12:23-0500 Heart rate 93 /min Lu Sarmini [facility] 09-10-2024 12:23-0500 Systolic blood pressure 88 mm[Hg] Lu Sarmini [facility] 08-24-2024 17:00-0500 Diastolic blood pressure 85 mm[Hg] Phan Sandy [facility] 08-24-2024 17:00-0500 Heart rate 79 /min Phan Sandy [facility] 08-24-2024 17:00-0500 Mean blood pressure 98 mm[Hg] Phan Parkere [facility] 08-24-2024 17:00-0500 Respiratory rate 16 /min Phan Sandy [facility] 08-24-2024 17:00-0500 SaO2% (BldA) [Mass fraction] 96 % Phan Parkere [facility] 08-24-2024 17:00-0500 Systolic blood pressure 125 mm[Hg] Phan Du [facility] 08-24-2024 16:00-0500 Diastolic blood pressure 96 mm[Hg] Phan Parkere [facility] 08-24-2024 16:00-0500 Heart rate 82 /min Phan Parkere [facility] 08-24-2024 16:00-0500 Mean blood pressure 105 mm[Hg] Phan Parkere [facility] 08-24-2024 16:00-0500 Systolic blood pressure 123 mm[Hg] Phan Du [facility] 08-24-2024 15:00-0500 Diastolic blood pressure 83 mm[Hg] Phan Parkere [facility] 08-24-2024 15:00-0500 Heart rate 89 /min Phan Parkere [facility] 08-24-2024 15:00-0500 Mean blood pressure 95 mm[Hg] Phan Parkere [facility] 08-24-2024 15:00-0500 SaO2% (BldA) [Mass fraction] 95 % Phan Parkere [facility] 08-24-2024 15:00-0500 Systolic blood pressure 119 mm[Hg] Phan Parkere [facility] 08-24-2024 12:17-0500 Body temperature 98.06 [degF] Phan Parkere [facility] 08-24-2024 12:17-0500 Heart rate 85 /min Phan Du [facility] 08-24-2024 12:17-0500 Respiratory rate 18 /min Phan Parkere [facility] 08-14-2024 18:10-0500 Hourly Rounding Beatriz OJUKWU [facility] 08-14-2024 18:10-0500 Promise to Return Mbanefo OJUKWU [facility] 08-14-2024 17:10-0500 Hourly Rounding Mbanefo OJUKWU [facility] 08-14-2024 17:10-0500 Promise to Return Mbanefo OJUKWU [facility] 08-14-2024 17:09-0500 Heart rate 69 /min Mbanefo OJUKWU [facility] 08-14-2024 17:09-0500 SaO2% (BldA) [Mass fraction] 93 % Mbanefo OJUKWU [facility] 08-14-2024 17:09-0500 Body temperature 97.52 [degF] Mbanefo OJUKWU [facility] 08-14-2024 17:08-0500 Diastolic blood pressure 94 mm[Hg] Mbanefo OJUKWU [facility] 08-14-2024 17:08-0500 Mean blood pressure 108 mm[Hg] Mbanefo OJUKWU [facility] 08-14-2024 17:08-0500 Systolic blood pressure 138 mm[Hg] Mbanefo OJUKWU [facility] 08-14-2024 16:10-0500 Hourly Rounding Mbanefo OJUKWU [facility] 08-14-2024 16:10-0500 Promise to Return Mbanefo OJUKWU [facility] 08-14-2024 11:34-0500 Heart rate 70 /min Mbanefo OJUKWU [facility] 08-14-2024 11:34-0500 SaO2% (BldA) [Mass fraction] 98 % Mbanefo OJUKWU [facility] 08-14-2024 11:34-0500 Diastolic blood pressure 85 mm[Hg] Mbanefo OJUKWU [facility] 08-14-2024 11:34-0500 Mean blood pressure 102 mm[Hg] Mbanefo OJUKWU [facility] 08-14-2024 11:34-0500 Systolic blood pressure 137 mm[Hg] Mbanefo OJUKWU [facility] 08-14-2024 11:34-0500 Body temperature 97.88 [degF] Mbanefo OJUKWU [facility] 08-14-2024 07:52-0500 Heart rate 75 /min Mbanefo OJUKWU [facility] 08-14-2024 07:52-0500 SaO2% (BldA) [Mass fraction] 97 % Mbanefo OJUKWU [facility] 08-14-2024 07:52-0500 Diastolic blood pressure 89 mm[Hg] Mbanefo OJUKWU [facility] 08-14-2024 07:52-0500 Mean blood pressure 103 mm[Hg] Mbanefo OJUKWU [facility] 08-14-2024 07:52-0500 Systolic blood pressure 130 mm[Hg] Mbanefo OJUKWU [facility] 08-14-2024 07:52-0500 Body temperature 98.24 [degF] Mbanefo OJUKWU [facility] 08-14-2024 05:00-0500 Blood Pressure Location Mbanefo OJUKWU [facility] 08-14-2024 05:00-0500 Body temperature 97.34 [degF] Mbanefo OJUKWU [facility] 08-14-2024 05:00-0500 Mean blood pressure 96 mm[Hg] Mbanefo OJUKWU [facility] 08-14-2024 00:49-0500 Blood Pressure Location Mbanefo OJUKWU [facility] 08-14-2024 00:49-0500 Body temperature 97.52 [degF] Mbanefo OJUKWU [facility] 08-14-2024 00:49-0500 Mean blood pressure 94 mm[Hg] Mbanefo OJUKWU [facility] 08-13-2024 17:45-0500 Respiratory rate 20 /min Mbanefo OJUKWU [facility] 08-13-2024 16:42-0500 Blood Pressure Location Mbanefo OJUKWU [facility] 08-13-2024 16:42-0500 Body temperature 98.6 [degF] Mbanefo OJUKWU [facility] 08-13-2024 16:42-0500 Heart rate 63 /min Mbanefo OJUKWU [facility] 08-13-2024 16:42-0500 Respiratory rate 18 /min Mbanefo OJUKWU [facility] 08-13-2024 16:00-0500 Respiratory rate 18 /min Mbanefo OJUKWU [facility] 08-13-2024 15:00-0500 Mean blood pressure 103 mm[Hg] Mbanefo OJUKWU [facility] 08-13-2024 15:00-0500 Respiratory rate 14 /min Mbanefo OJUKWU [facility] 08-13-2024 14:30-0500 Respiratory rate 15 /min Mbanefo OJUKWU [facility] 08-13-2024 10:30-0500 Respiratory rate 16 /min Mbanefo OJUKWU [facility] 08-13-2024 09:01-0500 Heart rate 91 /min Mbanefo OJUKWU [facility] 08-11-2024 11:38-0500 Body height 172.7 cm Yossi Golden MD Work Phone: [facility] 08-11-2024 11:38-0500 Body mass index (BMI) [Ratio] 37.1 kg/m2 Yossi Golden MD Work Phone: [facility] 08-11-2024 11:38-0500 Body temperature 97.11 [degF] Yossi Golden MD Work Phone: [facility] 08-11-2024 11:38-0500 Body weight 110.68 kg Yossi Golden MD Work Phone: [facility] 08-11-2024 11:38-0500 Diastolic blood pressure 66 mm[Hg] Yossi Golden MD Work Phone: [facility] 08-11-2024 11:38-0500 Heart rate 88 /min Yossi Golden MD Work Phone: [facility] 08-11-2024 11:38-0500 Respiratory rate 22 /min Yossi Golden MD Work Phone: [facility] 08-11-2024 11:38-0500 SaO2% (BldA) [Mass fraction] 97 % Yossi Golden MD Work Phone: [facility] 08-11-2024 11:38-0500 Systolic blood pressure 122 mm[Hg] Yossi Golden MD Work Phone: [facility] 08-10-2024 10:25-0500 Blood Pressure Location Lu Sarmini [facility] 08-10-2024 10:25-0500 Diastolic blood pressure 83 mm[Hg] Lu Sarmini [facility] 08-10-2024 10:25-0500 Heart rate 87 /min Lu Sarmini [facility] 08-10-2024 10:25-0500 Respiratory rate 16 /min Lu Sarmini [facility] 08-10-2024 10:25-0500 Systolic blood pressure 129 mm[Hg] Lu Sarmini [facility] 08-07-2024 11:50-0500 Diastolic blood pressure 49 mm[Hg] Phan Sandy [facility] 08-07-2024 11:50-0500 Heart rate 76 /min Phan Sandy [facility] 08-07-2024 11:50-0500 Mean blood pressure 66 mm[Hg] Phan Sandy [facility] 08-07-2024 11:50-0500 SaO2% (BldA) [Mass fraction] 97 % Phan Sandy [facility] 08-07-2024 11:50-0500 Systolic blood pressure 101 mm[Hg] Phan Du [facility] 08-07-2024 10:07-0500 Diastolic blood pressure 71 mm[Hg] Phan Du [facility] 08-07-2024 10:07-0500 Heart rate 77 /min Phan Du [facility] 08-07-2024 10:07-0500 Mean blood pressure 82 mm[Hg] Phan Du [facility] 08-07-2024 10:07-0500 Respiratory rate 18 /min Phan Du [facility] 08-07-2024 10:07-0500 SaO2% (BldA) [Mass fraction] 97 % Phan Du [facility] 08-07-2024 10:07-0500 Systolic blood pressure 105 mm[Hg] Phan Du [facility] 08-07-2024 09:08-0500 Body temperature 98.06 [degF] Phan Du [facility] 08-07-2024 09:08-0500 Diastolic blood pressure 76 mm[Hg] Phan Du [facility] 08-07-2024 09:08-0500 Heart rate 92 /min Phan Du [facility] 08-07-2024 09:08-0500 Respiratory rate 18 /min Phan Du [facility] 08-07-2024 09:08-0500 SaO2% (BldA) [Mass fraction] 97 % Phan Du [facility] 08-07-2024 09:08-0500 Systolic blood pressure 125 mm[Hg] Phan Du [facility] 08-06-2024 23:48-0500 Heart rate 85 /min Cameron Rubin [facility] 08-06-2024 23:48-0500 Respiratory rate 16 /min Cameron Rubin [facility] 08-06-2024 23:48-0500 SaO2% (BldA) [Mass fraction] 98 % Cameron Rubin [facility] 08-06-2024 22:59-0500 Diastolic blood pressure 101 mm[Hg] Cameron Rubin [facility] 08-06-2024 22:59-0500 Heart rate 97 /min Cameron Rubin [facility] 08-06-2024 22:59-0500 Mean blood pressure 118 mm[Hg] Cameron Rubin [facility] 08-06-2024 22:59-0500 Respiratory rate 17 /min Cameron Rubin [facility] 08-06-2024 22:59-0500 SaO2% (BldA) [Mass fraction] 96 % Cameron Rubin [facility] 08-06-2024 22:59-0500 Systolic blood pressure 151 mm[Hg] Cameron Rubin [facility] 08-06-2024 21:00-0500 Diastolic blood pressure 95 mm[Hg] Cameron Rubin [facility] 08-06-2024 21:00-0500 Heart rate 92 /min Cameron Rubin [facility] 08-06-2024 21:00-0500 Mean blood pressure 114 mm[Hg] Cameron Rubin [facility] 08-06-2024 21:00-0500 SaO2% (BldA) [Mass fraction] 92 % Cameron Conklin [facility] 08-06-2024 20:00-0500 Body temperature 98.24 [degF] Cameron Conklin [facility] 08-06-2024 20:00-0500 Diastolic blood pressure 80 mm[Hg] Cameron Conklin [facility] 08-06-2024 20:00-0500 Mean blood pressure 96 mm[Hg] Cameron Conklin [facility] 08-06-2024 20:00-0500 Systolic blood pressure 129 mm[Hg] Cameron Conklin [facility] 08-06-2024 19:07-0500 Heart rate 106 /min Cameron Conklin [facility] 08-06-2024 10:00-0500 Body temperature 98.49 [degF] Michael Solo [facility]: [facility] [employer] 08-06-2024 09:57-0500 Body height 172.7 cm Michael Solo [facility] Work Phone: [facility] [employer] 08-06-2024 09:57-0500 Body mass index (BMI) [Ratio] 36.49 kg/m2 Michael Solo MD Work Phone: [facility] [employer] 08-06-2024 09:57-0500 Body weight 108.86 kg Michael Solo MD Work Phone: [facility] [employer] 08-06-2024 09:57-0500 Diastolic blood pressure 82 mm[Hg] Michael Solo MD Work Phone: [facility] [employer] 08-06-2024 09:57-0500 Heart rate 93 /min Michael Solo MD Work Phone: [facility] [employer] 08-06-2024 09:57-0500 Respiratory rate 18 /min Michael Solo MD Work Phone: [facility] 08-06-2024 09:57-0500 SaO2% (BldA) [Mass fraction] 97 % Michael Solo MD Work Phone: [facility] 08-06-2024 09:57-0500 Systolic blood pressure 143 mm[Hg] Michael Solo MD Work Phone: [facility] 07-29-2024 21:08-0500 Diastolic blood pressure 72 mm[Hg] [facility] 07-29-2024 21:08-0500 Heart rate 89 /min [facility] 07-29-2024 21:08-0500 Mean blood pressure 85 mm[Hg] [facility] 07-29-2024 21:08-0500 Respiratory rate 18 /min [facility] 07-29-2024 21:08-0500 SaO2% (BldA) [Mass fraction] 98 % [facility] 07-29-2024 21:08-0500 Systolic blood pressure 110 mm[Hg] [facility] 07-29-2024 20:59-0500 Diastolic blood pressure 96 mm[Hg] [facility] 07-29-2024 20:59-0500 Heart rate 85 /min [facility] 07-29-2024 20:59-0500 Mean blood pressure 110 mm[Hg] [facility] 07-29-2024 20:59-0500 Respiratory rate 18 /min [facility] 07-29-2024 20:59-0500 SaO2% (BldA) [Mass fraction] 97 % [facility] 07-29-2024 20:59-0500 Systolic blood pressure 137 mm[Hg] [facility] 07-29-2024 20:13-0500 Diastolic blood pressure 94 mm[Hg] [facility] 07-29-2024 20:13-0500 Heart rate 99 /min [facility] 07-29-2024 20:13-0500 Mean blood pressure 106 mm[Hg] [facility] 07-29-2024 20:13-0500 Respiratory rate 18 /min [facility] 07-29-2024 20:13-0500 SaO2% (BldA) [Mass fraction] 99 % [facility] 07-29-2024 20:13-0500 Systolic blood pressure 130 mm[Hg] [facility] 07-29-2024 18:49-0500 Body temperature 97.7 [degF] [facility] 07-29-2024 18:49-0500 Heart rate 94 /min [facility] 07-09-2024 13:15-0400 Body height 172.7 cm Yossi Golden MD Work Phone: [facility] 07-09-2024 13:15-0400 Body mass index (BMI) [Ratio] 36.64 kg/m2 Yossi Golden MD Work Phone: [facility] 07-09-2024 13:15-0400 Body temperature 95.5 [degF] Yossi Golden MD Work Phone: [facility] 07-09-2024 13:15-0400 Body weight 109.32 kg Yossi Golden MD Work Phone: [facility] 07-09-2024 13:15-0400 Diastolic blood pressure 64 mm[Hg] Yossi Golden MD Work Phone: [facility] 07-09-2024 13:15-0400 Heart rate 82 /min Yossi Golden MD Work Phone: [facility] 07-09-2024 13:15-0400 Respiratory rate 22 /min Yossi Golden MD Work Phone: [facility] 07-09-2024 13:15-0400 SaO2% (BldA) [Mass fraction] 97 % Yossi Golden MD Work Phone: [facility] 07-09-2024 13:15-0400 Systolic blood pressure 126 mm[Hg] Yossi Golden MD Work Phone: [facility] 07-08-2024 08:47-0400 Body height 172.7 cm Kaylie Sommer DO Work [facility]: [facility] 07-[facility]24 07:05-0400 Body temperature 97.9 [degF] Kaylie Sommer DO Work Phone: [facility] [employer] 07-08-2024 07:05-0400 Diastolic blood pressure 83 mm[Hg] Kaylie Sommer DO Work Phone: [facility] 07-08-2024 07:05-0400 Heart rate 61 /min Kaylie Sommer DO Work Phone: [facility] 07-08-2024 07:05-0400 Respiratory rate 19 /min Kaylie Sommer DO Work Phone: [facility] 07-08-2024 07:05-0400 SaO2% (BldA) [Mass fraction] 95 % Kaylie Kemal ROSA Work Phone: [facility] 07-08-2024 07:05-0400 Systolic blood pressure 132 mm[Hg] Kaylie Sommer DO Work Phone: [facility] 07-08-2024 06:00-0400 Body mass index (BMI) [Ratio] 37.94 kg/m2 Kaylie Sommer DO Work Phone: [facility] 07-08-2024 06:00-0400 Body weight 113.17 kg Kaylie Sommer DO Work Phone: [facility] 07-05-2024 22:30-0400 Blood Pressure Location Kaylinn Dokken [facility] 07-05-2024 22:30-0400 Diastolic blood pressure 84 mm[Hg] Kaylinn Dokken [facility] 07-05-2024 22:30-0400 Heart rate 78 /min Kaylinn Dokken [facility] 07-05-2024 22:30-0400 Mean blood pressure 98 mm[Hg] Kaylinn Dokken [facility] 07-05-2024 22:30-0400 Respiratory rate 16 /min Kaylinn Dokken [facility] 07-05-2024 22:30-0400 SaO2% (BldA) [Mass fraction] 98 % Kaylinn Dokken [facility] 07-05-2024 22:30-0400 Systolic blood pressure 125 mm[Hg] Kaylinn Dokken [facility] 07-05-2024 22:00-0400 Diastolic blood pressure 80 mm[Hg] Kaylinn Dokken [facility] 07-05-2024 22:00-0400 Heart rate 86 /min Kaylinn Dokken [facility] 07-05-2024 22:00-0400 Mean blood pressure 88 mm[Hg] Kaylinn Dokken [facility] 07-05-2024 22:00-0400 SaO2% (BldA) [Mass fraction] 96 % Kaylinn Dokken [facility] 07-05-2024 22:00-0400 Systolic blood pressure 105 mm[Hg] Kaylinn Dokken [facility] 07-05-2024 21:00-0400 Diastolic blood pressure 90 mm[Hg] Kaylinn Dokken [facility] 07-05-2024 21:00-0400 Heart rate 92 /min Kaylinn Dokken [facility] 07-05-2024 21:00-0400 Mean blood pressure 111 mm[Hg] Kaylinn Dokken [facility] 07-05-2024 21:00-0400 Respiratory rate 18 /min Juwaninn Dokken [facility] 07-05-2024 21:00-0400 SaO2% (BldA) [Mass fraction] 97 % Saraiylinn Dokken [facility] 07-05-2024 21:00-0400 Systolic blood pressure 154 mm[Hg] Saraiylinn Dokken [facility] 07-05-2024 17:42-0400 Body temperature 98.06 [degF] Saraiylinn Dokken [facility] 07-05-2024 17:42-0400 Heart rate 102 /min Sariaylinn Dokken [facility] 06-20-2024 23:47-0400 Diastolic blood pressure 66 mm[Hg] Rob Soco [facility] 06-20-2024 23:47-0400 Heart rate 63 /min Rob Soco [facility] 06-20-2024 23:47-0400 Mean blood pressure 88 mm[Hg] Rob Soco [facility] 06-20-2024 23:47-0400 Systolic blood pressure 132 mm[Hg] Rob Soco [facility] 06-20-2024 22:11-0400 Diastolic blood pressure 86 mm[Hg] Rob Leach [facility] 06-20-2024 22:11-0400 Heart rate 69 /min Rob Leach [facility] 06-20-2024 22:11-0400 Mean blood pressure 102 mm[Hg] Rob Leach [facility] 06-20-2024 22:11-0400 Nursing Progress Note Reason Other: states nausea is better. repeat vitals done. pt checked blood sugar. states it is 150 per her machine Rob Leach [facility] 06-20-2024 22:11-0400 SaO2% (BldA) [Mass fraction] 97 % Rob Leach [facility] 06-20-2024 22:11-0400 Systolic blood pressure 135 mm[Hg] Rob Leach [facility] 06-20-2024 22:06-0400 Diastolic blood pressure 76 mm[Hg] Rob Leach [facility] 06-20-2024 22:06-0400 Heart rate 79 /min Rob Leach [facility] 06-20-2024 22:06-0400 Mean blood pressure 89 mm[Hg] Rob Leach [facility] 06-20-2024 22:06-0400 Respiratory rate 16 /min Rob eLach [facility] 06-20-2024 22:06-0400 SaO2% (BldA) [Mass fraction] 95 % Rob Leach [facility] 06-20-2024 22:06-0400 Systolic blood pressure 115 mm[Hg] Rob Leach [facility] 06-20-2024 21:36-0400 Hourly Rounding Rob Leach [facility] Comment on above: Result Comment: medicated. Resting in be d. at bedside. 06-20-2024 21:34-0400 Respiratory rate 16 /min Rob Leach [facility] 06-20-2024 21:34-0400 SaO2% (BldA) [Mass fraction] 95 % Rob Leach [facility] 06-20-2024 20:45-0400 Respiratory rate 18 /min Rob Leach [facility] 06-20-2024 18:50-0400 Body temperature 97.88 [degF] Rob Leach [facility] 06-20-2024 18:50-0400 Heart rate 92 /min Rob Leach [facility] 06-09-2024 05:00-0400 Diastolic blood pressure 88 mm[Hg] Kaylinn Dokken [facility] 06-09-2024 05:00-0400 Heart rate 89 /min Kaylinn Dokken [facility] 06-09-2024 05:00-0400 SaO2% (BldA) [Mass fraction] 97 % Kaylinn Dokken [facility] 06-09-2024 05:00-0400 Systolic blood pressure 132 mm[Hg] Kaylinn Dokken [facility] 06-09-2024 04:08-0400 Blood Pressure Location Kaylinn Dokken [facility] 06-09-2024 04:08-0400 Diastolic blood pressure 83 mm[Hg] Kaylinn Dokken [facility] 06-09-2024 04:08-0400 Heart rate 81 /min Kaylinn Dokken [facility] 06-09-2024 04:08-0400 Mean blood pressure 98 mm[Hg] Kaylinn Dokken [facility] 06-09-2024 04:08-0400 Respiratory rate 16 /min Kaylinn Dokken [facility] 06-09-2024 04:08-0400 SaO2% (BldA) [Mass fraction] 96 % Kaylinn Dokken [facility] 06-09-2024 04:08-0400 Systolic blood pressure 129 mm[Hg] Kaylinn Dokken [facility] 06-09-2024 03:36-0400 Diastolic blood pressure 92 mm[Hg] Kaylinn Dokken [facility] 06-09-2024 03:36-0400 Heart rate 82 /min Kaylinn Dokken [facility] 06-09-2024 03:36-0400 Mean blood pressure 103 mm[Hg] Kaylinn Dokken [facility] 06-09-2024 03:36-0400 Respiratory rate 14 /min Kaylinn Dokken [facility] 06-09-2024 03:36-0400 SaO2% (BldA) [Mass fraction] 96 % Kaylinn Dokken [facility] 06-09-2024 03:36-0400 Systolic blood pressure 126 mm[Hg] Kaylinn Dokken [facility] 06-09-2024 02:35-0400 Body temperature 97.7 [degF] Kaylinn Dokken [facility] 06-09-2024 02:35-0400 Heart rate 84 /min Chavo Squires [facility] 06-08-2024 13:47-0400 Body mass index (BMI) [Ratio] 37.86 kg/m2 Yossi Golden MD Work Phone: [facility] 06-08-2024 13:47-0400 Body temperature 98.01 [degF] Yossi Golden MD Work Phone: [facility] 06-08-2024 13:47-0400 Body weight 112.95 kg Yossi Golden MD Work Phone: [facility] 06-08-2024 13:47-0400 Diastolic blood pressure 64 mm[Hg] Yossi Golden MD Work Phone: [facility] 06-08-2024 13:47-0400 Heart rate 91 /min Yossi Golden MD Work Phone: [facility] 06-08-2024 13:47-0400 Respiratory rate 17 /min Yossi Golden MD Work Phone: [facility] 06-08-2024 13:47-0400 SaO2% (BldA) [Mass fraction] 98 % Yossi Golden MD Work Phone: [facility] 06-08-2024 13:47-0400 Systolic blood pressure 110 mm[Hg] Yossi Golden MD Work Phone: [facility] 06-01-2024 09:48-0400 Blood Pressure Location Lu Sarmini [facility] 06-01-2024 09:48-0400 Diastolic blood pressure 95 mm[Hg] Lu Sarmini [facility] 06-01-2024 09:48-0400 Heart rate 70 /min Lu Sarmini [facility] 06-01-2024 09:48-0400 Systolic blood pressure 137 mm[Hg] Aly Beverly [facility] 06-01-2024 09:41-0400 Blood Pressure Location Aly Beverly [facility] 06-01-2024 09:41-0400 Respiratory rate 16 /min Aly Beverly [facility] 05-26-2024 14:34-0400 Diastolic blood pressure 68 mm[Hg] Yoly Strange MD Work Phone: [facility] 05-26-2024 14:34-0400 Heart rate 93 /min Yoly Strange MD Work Phone: [facility] 05-26-2024 14:34-0400 Respiratory rate 20 /min Yoly Strange MD Work Phone: [facility] 05-26-2024 14:34-0400 Systolic blood pressure 101 mm[Hg] Yoly Strange MD Work Phone: [facility] 05-26-2024 12:12-0400 SaO2% (BldA) [Mass fraction] 98 % Yoly Strange MD Work Phone: [facility] 05-26-2024 12:11-0400 Body temperature 97.81 [degF] Yoly Strange MD Work Phone: [facility] 05-24-2024 13:25-0400 Hourly Rounding Naima Sewell [facility] 05-24-2024 13:25-0400 Promise to Return Naima Sewell [facility] 05-24-2024 12:00-0400 Hourly Rounding Naima Sewell [facility] 05-24-2024 12:00-0400 Promise to Return [facility] 05-24-2024 11:31-0400 Hourly Rounding [facility] 05-24-2024 11:31-0400 Promise to Return [facility] 05-24-2024 11:00-0400 Body temperature 97.7 [degF] [facility] 05-24-2024 11:00-0400 Diastolic blood pressure 71 mm[Hg] [facility] 05-24-2024 11:00-0400 gluc 153 mg/dL [facility] 05-24-2024 11:00-0400 Heart rate 90 /min [facility] 05-24-2024 11:00-0400 Mean blood pressure 84 mm[Hg] [facility] 05-24-2024 11:00-0400 Respiratory rate 18 /min [facility] 05-24-2024 11:00-0400 Systolic blood pressure 110 mm[Hg] [facility] 05-24-2024 07:46-0400 Heart rate 84 /min [facility] 05-24-2024 07:46-0400 Respiratory rate 16 /min [facility] 05-24-2024 07:46-0400 SaO2% (BldA) [Mass fraction] 99 % [facility] 05-24-2024 07:45-0400 Body temperature 97.88 [degF] [facility] 05-24-2024 07:45-0400 Blood Pressure Location [facility] 05-24-2024 07:45-0400 Diastolic blood pressure 84 mm[Hg] [facility] 05-24-2024 07:45-0400 Mean blood pressure 102 mm[Hg] [facility] 05-24-2024 07:45-0400 Systolic blood pressure 139 mm[Hg] Naima [facility] 05-24-2024 07:00-0400 gluc 129 mg/dL [facility] 05-24-2024 02:24-0400 Body temperature 97.52 [degF] [facility] 05-24-2024 02:24-0400 Diastolic blood pressure 78 mm[Hg] [facility] 05-24-2024 02:24-0400 Heart rate 84 /min [facility] 05-24-2024 02:24-0400 SaO2% (BldA) [Mass fraction] 96 % [facility] 05-24-2024 02:24-0400 Systolic blood pressure 126 mm[Hg] [facility] 05-23-2024 19:32-0400 Body temperature 97.7 [degF] [facility] 05-23-2024 19:32-0400 Mean blood pressure 94 mm[Hg] [facility] 05-23-2024 16:00-0400 gluc 124 mg/dL [facility] 05-23-2024 14:00-0400 Mean blood pressure 88 mm[Hg] [facility] 05-23-2024 13:00-0400 Blood Pressure Location [facility] 05-23-2024 13:00-0400 Body temperature 97.16 [degF] [facility] 05-23-2024 13:00-0400 Respiratory rate 18 /min [facility] 05-23-2024 02:30-0400 Body temperature 98.42 [degF] [facility] 05-23-2024 02:30-0400 Heart rate 81 /min [facility] 05-23-2024 02:25-0400 Mean blood pressure 101 mm[Hg] Naima Sewell [facility] 05-22-2024 21:48-0400 Heart rate 97 /min [facility] 05-04-2024 12:01-0400 Body height 172.72 cm [employer] 05-04-2024 12:01-0400 Body mass index (BMI) [Ratio] 37.86 kg/m2 [employer] 05-04-2024 12:01-0400 Body surface area Derived from formula 2.33 m2 [employer] 05-04-2024 12:01-0400 Body weight 112.95 kg [employer] 05-04-2024 12:01-0400 Diastolic blood pressure 60 mm[Hg] [employer] 05-04-2024 12:01-0400 Heart rate 76 /min [employer] 05-04-2024 12:01-0400 Systolic blood pressure 104 mm[Hg] [employer] 02-05-2024 19:33-0400 Body temperature 98.01 [degF] Yossi Golden MD Work Phone: [employer] 02-05-2024 19:33-0400 Diastolic blood pressure 103 mm[Hg] Yossi Golden MD Work Phone: [employer] 02-05-2024 19:33-0400 Heart rate 99 /min Yossi Golden MD Work Phone: [employer] 02-05-2024 19:33-0400 Respiratory rate 18 /min Yossi Golden MD Work Phone: [employer] 02-05-2024 19:33-0400 SaO2% (BldA) [Mass fraction] 97 % Yossi Golden MD Work Phone: [facility] [employer] 02-05-2024 19:33-0400 Systolic blood pressure 165 mm[Hg] Yossi Golden MD Work Phone: [facility] [employer] 01-30-2024 19:30-0400 Diastolic blood pressure 78 mm[Hg] Charly Bowlingellone DO Work Phone: [facility] [employer] 01-30-2024 19:30-0400 Heart rate 92 /min Charly Bowlingellone DO Work Phone: [facility] [employer] 01-30-2024 19:30-0400 Respiratory rate 17 /min Charly Bowlingellone DO Work Phone: [facility] [employer] 01-30-2024 19:30-0400 SaO2% (BldA) [Mass fraction] 96 % Charly Bowlingellone DO Work Phone: [facility] [employer] 01-30-2024 19:30-0400 Systolic blood pressure 131 mm[Hg] Charly Bowlingellone DO Work Phone: [facility] [employer] 01-30-2024 17:51-0400 Body temperature 97.7 [degF] Charly Bowlingellone DO Work Phone: [facility] [employer] 01-04-2024 21:36-0400 Heart rate 90 /min Fabrice Bosch MD Work Phone: [facility] [employer] 01-04-2024 19:41-0400 Body temperature 97.7 [degF] Fabrice Bosch MD Work Phone: [facility] [employer] 01-04-2024 19:41-0400 Diastolic blood pressure 110 mm[Hg] Fabrice Bosch MD Work Phone: [facility] [employer] 01-04-2024 19:41-0400 Respiratory rate 16 /min Fabrice Bosch MD Work Phone: [facility] [employer] 01-04-2024 19:41-0400 SaO2% (BldA) [Mass fraction] 97 % Fabrice Bosch MD Work Phone: [facility] [employer] 01-04-2024 19:41-0400 Systolic blood pressure 158 mm[Hg] Fabrice Bosch MD Work Phone: [facility] [employer] 11-24-2023 00:09-0500 SaO2% (BldA) [Mass fraction] 94 % Samy Walker MD [facility] [employer] 11-24-2023 00:03-0500 Body height 172.7 cm Samy Walker MD [facility] 11-24-2023 00:03-0500 Body mass index (BMI) [Ratio] 38.01 kg/m2 Samy Walker MD [facility] [employer] 11-24-2023 00:03-0500 Body weight 113.4 kg Samy Walker MD [facility] [employer] 11-24-2023 00:03-0500 Diastolic blood pressure 87 mm[Hg] Samy Walker MD [facility] [employer] 11-24-2023 00:03-0500 Systolic blood pressure 134 mm[Hg] Samy Walker MD [facility] [employer] 11-23-2023 20:23-0500 Body temperature 97.5 [degF] Samy Walker MD [facility] [employer] 11-23-2023 20:23-0500 Heart rate 99 /min Samy Walker MD [facility] [employer] 11-23-2023 20:23-0500 Respiratory rate 18 /min Samy Walker MD [facility] [employer] 10-14-2023 09:40-0500 Heart rate 125 /min Samy Walker MD [facility] 10-14-2023 08:28-0500 Body mass index (BMI) [Ratio] 38.01 kg/m2 Samy Walker MD [facility] 10-14-2023 08:28-0500 Body temperature 101.41 [degF] Samy Walker MD [facility] 01-22-2024 08:28-0500 Body weight 113.4 kg Samy Walker MD [facility] [employer] 10-14-2023 08:28-0500 Diastolic blood pressure 92 mm[Hg] Samy Walker MD [facility] [employer] 10-14-2023 08:28-0500 Respiratory rate 24 /min Samy Walker MD [facility] [employer] 10-14-2023 08:28-0500 SaO2% (BldA) [Mass fraction] 96 % Samy Walker MD [facility] [employer] 10-14-2023 08:28-0500 Systolic blood pressure 148 mm[Hg] Samy Walker MD [facility] [employer] 03-23-2023 19:40-0400 Diastolic blood pressure 86 mm[Hg] Darryl Ragsdale MD Work Phone: [facility] [employer] 03-23-2023 19:40-0400 Heart rate 72 /min Darryl Ragsdale MD Work Phone: [facility] [employer] 03-23-2023 19:40-0400 Respiratory rate 18 /min Darryl Ragsdale MD Work Phone: [facility] [employer] 03-23-2023 19:40-0400 SaO2% (BldA) [Mass fraction] 96 % Darryl Ragsdale MD Work Phone: [facility] [employer] 03-23-2023 19:40-0400 Systolic blood pressure 125 mm[Hg] Darryl Ragsdale MD Work Phone: [facility] [employer] 03-23-2023 17:45-0400 Body temperature 97.59 [degF] Darryl Ragsdale MD Work Phone: [facility] [employer] 02-18-2023 18:02-0400 Body temperature 98.4 [degF] Samy Walker MD [facility] [employer] 02-18-2023 18:02-0400 Diastolic blood pressure 105 mm[Hg] Samy Walker MD [facility] [employer] 02-18-2023 18:02-0400 Heart rate 105 /min Samy Walker MD [facility] [employer] 02-18-2023 18:02-0400 Respiratory rate 18 /min Samy Walker MD [facility] 02-18-2023 18:02-0400 SaO2% (BldA) [Mass fraction] 96 % Samy Walker MD [facility] 02-18-2023 18:02-0400 Systolic blood pressure 153 mm[Hg] Samy Walker MD [facility] 12-24-2022 17:00-0400 Diastolic blood pressure 69 mm[Hg] Anahi Phelps DO Work Phone: [facility] 12-24-2022 17:00-0400 Heart rate 76 /min Anahi Phelps DO Work Phone: [facility] 12-24-2022 17:00-0400 Respiratory rate 17 /min Anahi Phelps DO Work Phone: [facility] 12-24-2022 17:00-0400 SaO2% (BldA) [Mass fraction] 95 % Anahi Phelps DO Work Phone: [facility] 12-24-2022 17:00-0400 Systolic blood pressure 129 mm[Hg] Anahi Phelps DO Work Phone: [facility] 12-04-2022 13:20-0400 Blood Pressure Location Yajaira NILL [facility] [place] 12-04-2022 13:20-0400 Diastolic blood pressure 82 mm[Hg] Yajaira ME[facility] [place] 12-04-2022 13:20-0400 Heart rate 80 /min Yajaira NILL [facility] [place] 12-04-2022 13:20-0400 Respiratory rate 16 /min Yajaira MEADEL [facility] [place] 12-04-2022 13:20-0400 Systolic blood pressure 126 mm[Hg] Yajaira NILL [facility] [place] 11-12-2022 13:30-0500 Diastolic blood pressure 59 mm[Hg] Maryam Encinas DO Work Phone: [employer] 11-12-2022 13:30-0500 Heart rate 85 /min Maryam Encinas DO Work Phone: [facility] [employer] 11-12-2022 13:30-0500 Respiratory rate 16 /min Maryam Encinas DO Work Phone: [facility] [employer] 11-12-2022 13:30-0500 SaO2% (BldA) [Mass fraction] 96 % Maryam Encinas DO Work Phone: [employer] 11-12-2022 13:30-0500 Systolic blood pressure 114 mm[Hg] Maryam Encinas DO Work Phone: [facility] [employer] 11-12-2022 11:46-0500 Body temperature 97.59 [degF] Maryam Encinas DO Work Phone: [employer] 11-12-2022 08:32-0500 Body height 172.7 cm Maryam Encinas DO Work Phone: [employer] 11-12-2022 08:32-0500 Body mass index (BMI) [Ratio] 37.25 kg/m2 Maryam Encinas DO Work Phone: [employer] 11-12-2022 08:32-0500 Body weight 111.13 kg Maryam Encinas DO Work Phone: [employer] 11-01-2022 17:44-0500 SaO2% (BldA) [Mass fraction] 96 % Yossi Golden MD Work Phone: [employer] 11-01-2022 17:40-0500 Diastolic blood pressure 88 mm[Hg] Yossi Golden MD Work Phone: [employer] 11-01-2022 17:40-0500 Systolic blood pressure 134 mm[Hg] Yossi Golden MD Work Phone: [employer] 11-01-2022 15:04-0500 Body temperature 97.59 [degF] Yossi Golden MD Work Phone: [facility] [employer] 11-01-2022 15:04-0500 Heart rate 101 /min Yossi Golden MD Work Phone: [facility] [employer] 11-01-2022 15:04-0500 Respiratory rate 16 /min Yossi Golden MD Work Phone: [facility] [employer] 10-05-2022 18:08-0500 Body height 172.7 cm Ty Dillard MD Work Phone: [facility] [employer] 10-05-2022 18:08-0500 Body mass index (BMI) [Ratio] 38.01 kg/m2 Ty Dillard MD Work Phone: [facility] [employer] 10-05-2022 18:08-0500 Body weight 113.4 kg Ty Dillard MD Work Phone: [facility] [employer] 10-05-2022 17:28-0500 Diastolic blood pressure 88 mm[Hg] Ty Dillard MD Work Phone: [facility] [employer] 10-05-2022 17:28-0500 Systolic blood pressure 122 mm[Hg] Ty Dillard MD Work Phone: [facility] [employer] 10-05-2022 17:25-0500 Body temperature 97.59 [degF] Ty Dillard MD Work Phone: [facility] [employer] 10-05-2022 17:25-0500 Heart rate 100 /min Ty Dillard MD Work Phone: [facility] [employer] 10-05-2022 17:25-0500 Respiratory rate 17 /min Ty Dillard MD Work Phone: [facility] [employer] 10-05-2022 17:25-0500 SaO2% (BldA) [Mass fraction] 97 % Ty Dillard MD Work Phone: [facility] [employer] 09-27-2022 23:02-0500 Diastolic blood pressure 94 mm[Hg] Oliver Arenas MD Work Phone: [facility] [employer] 09-27-2022 23:02-0500 Heart rate 80 /min Oliver Arenas MD Work Phone: [facility] [employer] 09-27-2022 23:02-0500 Respiratory rate 16 /min Oliver Arneas MD Work Phone: [facility] [employer] 09-27-2022 23:02-0500 SaO2% (BldA) [Mass fraction] 95 % Oliver Arenas MD Work Phone: [facility] [employer] 09-27-2022 23:02-0500 Systolic blood pressure 124 mm[Hg] Oliver Arenas MD Work Phone: [facility] [employer] 09-27-2022 18:46-0500 Body height 172.7 cm Oliver Arenas MD Work Phone: [facility] [employer] 09-27-2022 18:46-0500 Body mass index (BMI) [Ratio] 38.01 kg/m2 Oliver Arenas MD Work Phone: [facility] [employer] 09-27-2022 18:46-0500 Body temperature 97.9 [degF] Oliver Arenas MD Work Phone: [facility] [employer] 09-27-2022 18:46-0500 Body weight 113.4 kg Oliver Arenas MD Work Phone: [facility] [employer] 07-08-2022 16:08-0400 SaO2% (BldA) [Mass fraction] 98 % Yossi Golden MD Work Phone: [facility] [employer] 07-08-2022 16:03-0400 Diastolic blood pressure 90 mm[Hg] Yossi Golden MD Work Phone: [facility] [employer] 07-08-2022 16:03-0400 Systolic blood pressure 130 mm[Hg] Yossi Golden MD Work Phone: [facility] [employer] 07-08-2022 15:15-0400 Body temperature 97.59 [degF] Yossi Golden MD Work Phone: [facility] [employer] 07-08-2022 15:15-0400 Heart rate 93 /min Yossi Golden MD Work Phone: [facility] [employer] 03-11-2022 01:19-0400 Diastolic blood pressure 79 mm[Hg] Samy Walker MD [facility] [employer] 03-11-2022 01:19-0400 SaO2% (BldA) [Mass fraction] 97 % Samy Walker MD [facility] [employer] 03-11-2022 01:19-0400 Systolic blood pressure 111 mm[Hg] Samy Walker MD [facility] [employer] 03-11-2022 00:49-0400 Body height 172.7 cm Samy Walker MD [facility] [employer] 03-11-2022 00:49-0400 Body mass index (BMI) [Ratio] 38.01 kg/m2 Samy Walker MD [facility] [employer] 03-11-2022 00:49-0400 Body temperature 97.7 [degF] Samy Walker MD [facility] [employer] 03-11-2022 00:49-0400 Body weight 113.4 kg aSmy Walker MD [facility] [employer] 03-11-2022 00:49-0400 Heart rate 103 /min Samy Walker MD [facility] [employer] 03-11-2022 00:49-0400 Respiratory rate 18 /min Samy Walker MD [facility] [employer] 01-04-2022 18:57-0400 Body temperature 97.39 [degF] Renard Watkins MD Work Phone: [facility] [employer] 01-04-2022 18:57-0400 Diastolic blood pressure 86 mm[Hg] Renard Watkins MD Work Phone: [facility] [employer] 01-04-2022 18:57-0400 Heart rate 94 /min Renard Watkins MD Work Phone: [employer] 01-04-2022 18:57-0400 Respiratory rate 16 /min Renard Watkins MD Work Phone: [employer] 01-04-2022 18:57-0400 SaO2% (BldA) [Mass fraction] 99 % Renard Watkins MD Work Phone: [employer] 01-04-2022 18:57-0400 Systolic blood pressure 138 mm[Hg] Renard Watkins MD Work Phone: [employer] 12-05-2021 00:14-0400 Body temperature 98.6 [degF] Samy Walker MD [facility] [employer] 12-05-2021 00:14-0400 Diastolic blood pressure 80 mm[Hg] Samy Walker MD [facility] [employer] 12-05-2021 00:14-0400 Heart rate 99 /min Samy Walker MD [facility] [employer] 12-05-2021 00:14-0400 Respiratory rate 18 /min Samy Walker MD [facility] [employer] 12-05-2021 00:14-0400 SaO2% (BldA) [Mass fraction] 98 % Samy Walker MD [facility] [employer] 12-05-2021 00:14-0400 Systolic blood pressure 127 mm[Hg] Samy Walker MD [facility] [employer] 09-06-2021 14:43-0500 Body height 172.7 cm Yossi Golden MD Work Phone: [facility] [employer] 09-06-2021 14:43-0500 Body mass index (BMI) [Ratio] 38.01 kg/m2 Yossi Golden MD Work Phone: [facility] [employer] 09-06-2021 14:43-0500 Body temperature 98.4 [degF] Yossi Golden MD Work Phone: [employer] 09-06-2021 14:43-0500 Body weight 113.4 kg Yossi Golden MD Work Phone: [employer] 09-06-2021 14:43-0500 Diastolic blood pressure 100 mm[Hg] Yossi Golden MD Work Phone: [employer] 09-06-2021 14:43-0500 Heart rate 113 /min Yossi Golden MD Work Phone: [employer] 09-06-2021 14:43-0500 Respiratory rate 18 /min Yossi Golden MD Work Phone: [employer] 09-06-2021 14:43-0500 SaO2% (BldA) [Mass fraction] 97 % Yossi Golden MD Work Phone: [employer] 09-06-2021 14:43-0500 Systolic blood pressure 132 mm[Hg] Yossi Golden MD Work Phone: [employer] 06-02-2021 18:45-0400 Body temperature 98.1 [degF] Yossi Golden MD Work Phone: [employer] Work Phone: 06-02-2021 18:45-0400 Diastolic blood pressure 111 mm[Hg] Yossi Golden MD Work Phone: [employer] Work Phone: 06-02-2021 18:45-0400 Heart rate 104 /min Yossi Golden MD Work Phone: [employer] Work Phone: 06-02-2021 18:45-0400 Respiratory rate 16 /min Yossi Golden MD Work Phone: [employer] Work Phone: 06-02-2021 18:45-0400 SaO2% (BldA) [Mass fraction] 99 % Yossi Golden MD Work Phone: [employer] Work Phone: 06-02-2021 18:45-0400 Systolic blood pressure 140 mm[Hg] Yossi Golden MD Work Phone: [employer] Work Phone: 03-20-2021 15:00-0400 Diastolic blood pressure 80 mm[Hg] Maryam Klineg DO Work Phone: [employer] Work Phone: 03-20-2021 15:00-0400 Heart rate 62 /min Maryam Klineg DO Work Phone: [employer] Work Phone: 03-20-2021 15:00-0400 Respiratory rate 16 /min Maryam Klineg DO Work Phone: [employer] Work Phone: 03-20-2021 15:00-0400 SaO2% (BldA) [Mass fraction] 98 % Maryam Klineg DO Work Phone: [employer] Work Phone: 03-20-2021 15:00-0400 Systolic blood pressure 159 mm[Hg] Maryam Klineg DO Work Phone: [employer] Work Phone: 03-20-2021 14:15-0400 Body temperature 97.5 [degF] Maryam Klineg DO Work Phone: [employer] Work Phone: 03-20-2021 12:45-0400 Body height 172.7 cm Maryam Klineg DO Work Phone: [employer] Work Phone: 03-20-2021 12:45-0400 Body mass index (BMI) [Ratio] 39.23 kg/m2 Maryam Klineg DO Work Phone: [employer] Work Phone: 03-20-2021 12:45-0400 Body weight 117.03 kg Maryam Klineg DO Work Phone: [employer] Work Phone: 11-28-2020 00:06-0500 BP Diastolic 98 mm[Hg] Praveen Díaz [employer] Work Phone: 11-28-2020 00:06-0500 BP Systolic 140 mm[Hg] Praveen Díaz [employer] Work Phone: 11-28-2020 00:03-0500 Body Temperature 97.9 [degF] Praveen Díaz [employer] Work Phone: 11-28-2020 00:03-0500 Pulse (Heart Rate) 108 /min Praveen Díaz [employer] Work Phone: 11-28-2020 00:03-0500 Pulse Oximetry 98 % Praveen Díaz [employer] Work Phone: 11-28-2020 00:03-0500 Respiratory Rate 16 /min Praveen Díaz [employer] Work Phone: 09-26-2020 07:05-0500 Body Temperature 97.81 [degF] [facility] [place] 09-26-2020 07:05-0500 BP Diastolic 72 mm[Hg] [facility] [place] [facility] [place] 09-26-2020 07:05-0500 BP Systolic 140 mm[Hg] [facility] [place] , [place] 09-26-2020 07:05-0500 Pulse (Heart Rate) 70 /min [facility] [employer] [employer], [place] 09-26-2020 07:05-0500 Pulse Oximetry 98 % [email or web address] [employer] , [place] 09-25-2020 22:30-0500 Respiratory Rate 16 /min [facility] [place] 09-24-2020 21:16-0500 BMI (Body Mass Index) 33.45 kg/m2 [employer] [employer] 09-24-2020 21:16-0500 Body weight 99.79 kg [employer] [place] , [place] 09-24-2020 21:16-0500 Height 172.7 cm [employer] [employer] , [place] 09-24-2020 19:45-0500 BP Diastolic 96 mm[Hg] Yossi Kwong [facility] [place] , [place] 09-24-2020 19:45-0500 BP Systolic 138 mm[Hg] Yossi Kwong [facility] [place] 09-24-2020 19:45-0500 Pulse (Heart Rate) 97 /min Yossi Kwong [facility] [place] 09-24-2020 19:45-0500 Pulse Oximetry 98 % Yossi Kwong [facility] , [place] 09-24-2020 17:10-0500 BMI (Body Mass Index) 33.45 kg/m2 Yossi Kwong [facility] [place] 09-24-2020 17:10-0500 Body Temperature 96.91 [degF] [facility]i [facility] [place] 09-24-2020 17:10-0500 Body weight 99.79 kg Yossi Kwong [facility] [place] , [place] 09-24-2020 17:10-0500 Height 172.7 cm Yossi Kwong [facility] , [place] 09-24-2020 17:10-0500 Respiratory Rate 20 /min Yossi [facility] [place] 09-17-2020 16:45-0500 BMI (Body Mass Index) 33.45 kg/m2 Yossi Kwong [facility] [place], [place] 09-17-2020 16:45-0500 Body Temperature 96.8 [degF] [facility]i [facility] [place] 09-17-2020 16:45-0500 Body weight 99.79 kg Yossi Kwong [facility] [place] , [place] 09-17-2020 16:45-0500 BP Diastolic 74 mm[Hg] Yossi Kwong [facility] [place] , [place] 09-17-2020 16:45-0500 BP Systolic 120 mm[Hg] Yossi Kwong [facility] [place] 09-17-2020 16:45-0500 Height 172.7 cm Yossi Kwong [facility] [place] 09-17-2020 16:45-0500 Pulse (Heart Rate) 103 /min Yossi Kwong [facility] [place] 09-17-2020 16:45-0500 Pulse Oximetry 98 % Yossi Kwong [facility] , [place] 09-17-2020 16:45-0500 Respiratory Rate 16 /min Yossi Golden [facility] , [place] 08-27-2020 13:47-0500 BP Diastolic 71 mm[Hg] Oliver Arenas [facility] [place] 08-27-2020 13:47-0500 BP Systolic 101 mm[Hg] Oliver Arenas [facility] [place] 08-27-2020 13:47-0500 Pulse (Heart Rate) 85 /min Oliver Arenas [facility], [place] 08-27-2020 13:47-0500 Pulse Oximetry 95 % Oliver Arenas [facility] [place] , [place] 08-27-2020 13:47-0500 Respiratory Rate 16 /min Oliver Arenas [facility], [place] 08-27-2020 10:49-0500 BMI (Body Mass Index) 34.52 kg/m2 [facility] [place] 08-27-2020 10:49-0500 Body Temperature 98.01 [degF] Oliver Arenas [facility], [place] 08-27-2020 10:49-0500 Body weight 102.97 kg Oliver FitzgeraldCount includes the [facility], [place] 08-13-2020 13:57-0500 BMI (Body Mass Index) 33.45 kg/m2 [facility] [place] 08-13-2020 13:57-0500 Body Temperature 98.6 [degF] Oliver Arenas [facility], [place] 08-13-2020 13:57-0500 Body weight 99.79 kg Oliver Arenas [facility], [place] 08-13-2020 13:57-0500 BP Diastolic 98 mm[Hg] Oliver FitzgeraldCount includes the [facility] , [place] 08-13-2020 13:57-0500 BP Systolic 149 mm[Hg] Oliver Arenas [facility], [place] 08-13-2020 13:57-0500 Height 172.7 cm Oliver FitzgeraldCount includes the [facility], [place] 08-13-2020 13:57-0500 Pulse (Heart Rate) 100 /min [facility] [place] 08-13-2020 13:57-0500 Pulse Oximetry 99 % Oliver Arenas [facility] [place], [place] 08-13-2020 13:57-0500 Respiratory Rate 16 /min Oliver Arenas [facility], [place] 06-15-2020 06:43-0400 Body Temperature 99.61 [degF] [facility] [place] 06-15-2020 06:43-0400 BP Diastolic 75 mm[Hg] [facility] [place] , [place] 06-15-2020 06:43-0400 BP Systolic 114 mm[Hg] [facility] , [place] 06-15-2020 06:43-0400 Pulse Oximetry 93 % [facility] , [place] 06-15-2020 06:43-0400 Respiratory Rate 18 /min [facility] [place] 06-15-2020 04:45-0400 BMI (Body Mass Index) 34.14 kg/m2 [facility], [place] 06-15-2020 04:45-0400 Body weight 101.83 kg [facility] , [place] 06-15-2020 04:45-0400 Pulse (Heart Rate) 98 /min [facility], [place] 06-14-2020 08:05-0400 Height 172.7 cm [facility] , [place] 05-24-2020 08:10-0400 BP Diastolic 75 mm[Hg] Ramila Elmore [facility] , [place] 05-24-2020 08:10-0400 BP Systolic 125 mm[Hg] Ramila Elmore [facility] , [place] 05-24-2020 08:10-0400 Pulse (Heart Rate) 74 /min Ramila Elmore [facility], [place] 05-24-2020 08:10-0400 Respiratory Rate 16 /min Ramila Elmore [facility] [place], [place] 05-24-2020 08:09-0400 Body Temperature 97.7 [degF] Ramila Elmore [facility] , [place] 05-22-2020 19:32-0400 Pulse Oximetry 100 % Ramila Elmore [facility] , [place] 05-22-2020 16:41-0400 BMI (Body Mass Index) 35.78 kg/m2 [facility] [place] 05-22-2020 16:41-0400 Body weight 108.32 kg Ramila Kwong [facility] , [place] 05-22-2020 16:41-0400 Height 174 cm Ramila Elmore [facility] , [place] 05-19-2020 14:15-0400 Body Temperature 98.1 [degF] [facility], [place] 05-19-2020 14:15-0400 Respiratory Rate 18 /min [facility] [place] 05-19-2020 14:14-0400 BP Diastolic 91 mm[Hg] Ramila [facility] , [place] 05-19-2020 14:14-0400 BP Systolic 127 mm[Hg] Ramila [facility] , [place] 05-19-2020 14:14-0400 Pulse (Heart Rate) 110 /min [facility], [place] 04-29-2020 13:38-0400 BP Diastolic 64 mm[Hg] [facility] [place] 04-29-2020 13:38-0400 BP Systolic 118 mm[Hg] [facility] [place] 04-29-2020 13:38-0400 Pulse (Heart Rate) 94 /min [facility], [place] 04-29-2020 13:27-0400 Respiratory Rate 18 /min [facility] [place] 04-07-2020 23:55-0400 BMI (Body Mass Index) 38.22 kg/m2 [facility] [place] 04-07-2020 23:55-0400 Body weight 110.68 kg [facility] , [place] 04-07-2020 23:55-0400 Height 170.2 cm [facility] , [place] 04-07-2020 23:21-0400 Body Temperature 97.7 [degF] [facility] [place] 04-07-2020 23:21-0400 BP Diastolic 83 mm[Hg] Colten Kwong [facility] [place] , [place] 04-07-2020 23:21-0400 BP Systolic 138 mm[Hg] Colten Kwong [facility] [place] , 04-07-2020 23:21-0400 Pulse (Heart Rate) 106 /min Colten Kwong [facility] [place], [place] 04-07-2020 23:21-0400 Respiratory Rate 20 /min Colten Kwong [facility] [place], [place] 04-03-2020 00:26-0400 Pulse Oximetry 95 % [facility] [place], [place] 04-02-2020 23:35-0400 BP Diastolic 62 mm[Hg] [facility] [place] 04-02-2020 23:35-0400 BP Systolic 122 mm[Hg] [facility] [place], [place] 04-02-2020 23:35-0400 Pulse (Heart Rate) 121 /min [facility] [place], [place] 04-02-2020 22:03-0400 Body Temperature 98.29 [degF] [facility] [place] 04-02-2020 22:03-0400 Respiratory Rate 16 /min Maryam Encinas [facility] [place], [place] 03-29-2020 19:46-0400 BP Diastolic 55 mm[Hg] Ramila Elmore [facility] [place] , [place] 03-29-2020 19:46-0400 BP Systolic 101 mm[Hg] Ramila Elmore [facility] [place] , [place] 03-29-2020 19:46-0400 Pulse (Heart Rate) 98 /min Ramila Elmore [facility] [place], [place] 03-29-2020 18:09-0400 BMI (Body Mass Index) 37.4 kg/m2 Ramila Elmore [facility] [place] 03-29-2020 18:09-0400 Body Temperature 97.5 [degF] Ramila [facility] [place] 03-29-2020 18:09-0400 Body weight 111.58 kg Ramila Elmore [facility] [place] , [place] 03-29-2020 18:09-0400 Height 172.7 cm Ramila Elmore [facility] [place] , [place] 03-29-2020 18:09-0400 Respiratory Rate 16 /min Ramila Elmore [facility] [place], [place] 02-26-2020 18:45-0400 BP Diastolic 74 mm[Hg] [facility] [place] 02-26-2020 18:45-0400 BP Systolic 129 mm[Hg] [facility] [place] 02-26-2020 18:45-0400 Pulse (Heart Rate) 90 /min [facility] [place] 02-26-2020 17:18-0400 Body Temperature 96.8 [degF] [facility] [place] 02-26-2020 17:18-0400 Respiratory Rate 18 /min [facility] [place] 02-01-2020 20:04-0400 BP Diastolic 53 mm[Hg] [facility] [place] 02-01-2020 20:04-0400 BP Systolic 102 mm[Hg] [facility] , [place] 02-01-2020 20:04-0400 Pulse (Heart Rate) 88 /min [facility], [place] 02-01-2020 19:38-0400 BMI (Body Mass Index) 38.01 kg/m2 [facility] [place] 02-01-2020 19:38-0400 Body weight 113.4 kg [facility] , [place] 02-01-2020 19:38-0400 Height 172.7 cm [facility] , [place] 02-01-2020 19:21-0400 Body Temperature 98.01 [degF] [facility] [place] 02-01-2020 19:21-0400 Respiratory Rate 18 /min [facility], [place] 02-01-2020 18:15-0400 BP Diastolic 63 mm[Hg] [facility] , [place] 02-01-2020 18:15-0400 BP Systolic 111 mm[Hg] [facility] , [place] 02-01-2020 18:15-0400 Pulse (Heart Rate) 96 /min Krystina Mario Alberto [facility], [place] 02-01-2020 18:15-0400 Pulse Oximetry 100 % [facility] , [place] 02-01-2020 18:15-0400 Respiratory Rate 18 /min Krystina Mario Alberto [facility], [place] 02-01-2020 17:03-0400 BMI (Body Mass Index) 38.01 kg/m2 [facility], [place] 02-01-2020 17:03-0400 Body Temperature 97.9 [degF] [facility] [place] 02-01-2020 17:03-0400 Body weight 113.4 kg [facility] , [place] 02-01-2020 17:03-0400 Height 172.7 cm [facility] , [place] 01-10-2020 23:47-0400 BP Diastolic 67 mm[Hg] [facility] , [place] 01-10-2020 23:47-0400 BP Systolic 121 mm[Hg] [facility] [place] 01-10-2020 23:47-0400 Pulse (Heart Rate) 83 /min [facility], [place] 01-10-2020 23:47-0400 Pulse Oximetry 97 % [facility] , [place] 01-10-2020 21:29-0400 Body Temperature 97.5 [degF] [facility], [place] 01-10-2020 21:28-0400 Respiratory Rate 16 /min [facility], [place] 12-18-2019 12:49-0400 Body weight 93 kg Yossi Golden [facility] , [place] 12-14-2019 16:53-0400 BP Diastolic 56 mm[Hg] Yossi Chantel [facility] , [place] 12-14-2019 16:53-0400 BP Systolic 128 mm[Hg] Yossi Chantel [facility] , [place] 12-14-2019 16:05-0400 BMI (Body Mass Index) 38.62 kg/m2 Yossi Chantel [facility], [place] 12-14-2019 16:05-0400 Body Temperature 98.8 [degF] Yossi Kwong [employer] [place] 12-14-2019 16:05-0400 Body weight 115.21 kg Yossi Kwong [employer] , [place] 12-14-2019 16:05-0400 Pulse (Heart Rate) 103 /min Yossi Kwong [employer], [place] 12-14-2019 16:05-0400 Pulse Oximetry 99 % Yossi Kwong [employer] , [place] 12-14-2019 16:05-0400 Respiratory Rate 19 /min Yossi Kwong [employer] [place] 09-24-2019 18:47-0500 Body height 172.7 cm Rod Conte MD Work Phone: [employer] Work Phone: 09-24-2019 18:47-0500 Body mass index (BMI) [Ratio] 40.45 kg/m2 Rod Conte MD Work Phone: [employer] Work Phone: 09-24-2019 18:47-0500 Body weight 120.66 kg Rod Conte MD Work Phone: [employer] Work Phone: 09-24-2019 18:47-0500 Diastolic blood pressure 64 mm[Hg] Rod Conte MD Work Phone: [employer] Work Phone: 09-24-2019 18:47-0500 Heart rate 110 /min Rod Conte MD Work Phone: [employer] Work Phone: 09-24-2019 18:47-0500 SaO2% (BldA) [Mass fraction] 97 % Rod Conte MD Work Phone: [employer] Work Phone: 09-24-2019 18:47-0500 Systolic blood pressure 98 mm[Hg] Rod Conte MD Work Phone: [employer] Work Phone: 09-24-2019 18:46-0500 Body temperature 98.71 [degF] Rod Conte MD Work Phone: [facility] [employer] Work Phone: 09-24-2019 18:46-0500 Respiratory rate 16 /min Rod Conte MD Work Phone: [facility] [employer] Work Phone: 07-29-2019 01:46-0500 BP Diastolic 77 mm[Hg] [facility] , [place] 07-29-2019 01:46-0500 BP Systolic 119 mm[Hg] [facility] , [place] 07-29-2019 01:46-0500 Pulse Oximetry 95 % [facility] , [place] 07-29-2019 01:01-0500 Pulse (Heart Rate) 82 /min [facility], [place] 07-28-2019 22:24-0500 BMI (Body Mass Index) 38.47 kg/m2 [facility], [place] 07-28-2019 22:24-0500 Body Temperature 96.91 [degF] [facility], [place] 07-28-2019 22:24-0500 Body weight 114.76 kg [facility] , [place] 07-28-2019 22:24-0500 Height 172.7 cm [facility] , [place] 07-28-2019 22:24-0500 Respiratory Rate 18 /min [facility], [place] 05-25-2019 21:45-0400 BP Diastolic 80 mm[Hg] [facility] [place] 05-25-2019 21:45-0400 BP Systolic 108 mm[Hg] Yossi Golden [facility] , [place] 05-25-2019 21:45-0400 Pulse (Heart Rate) 76 /min Yossi Golden [facility], [place] 05-25-2019 21:45-0400 Respiratory Rate 18 /min Yossi Golden [facility], [place] 05-25-2019 20:32-0400 Pulse Oximetry 98 % Yossi Golden [facility] , [place] 05-25-2019 19:54-0400 BMI (Body Mass Index) 39.99 kg/m2 Yossi Golden [facility], [place] 05-25-2019 19:54-0400 Body Temperature 97.81 [degF] Yossi Golden [facility], [place] 05-25-2019 19:54-0400 Body weight 119.3 kg Yossi Golden [facility] , [place] 05-19-2019 01:08-0400 BP Diastolic 101 mm[Hg] Rod [facility] , [place] 05-19-2019 01:08-0400 BP Systolic 152 mm[Hg] [facility] , [place] 05-19-2019 01:08-0400 Pulse (Heart Rate) 110 /min [place] 05-19-2019 01:08-0400 Pulse Oximetry 97 % [facility] [place] 05-19-2019 01:08-0400 Respiratory Rate 16 /min [place] 05-19-2019 01:05-0400 Body Temperature 97.59 [degF] [place] Encounters Encounter Date Encounter Type Care Provider Facility Start: 06-25-2025 End: 06-27-2025 ambulatory [facility] Start: 06-22-2025 End: 06-22-2025 Emergency department patient visit Darryl Ragsdale MD Work Phone: [facility] Comment on above: Constipation, unspec ified constipation type (Primary Dx) Start: 06-22-2025 End: 06-22-2025 Emergency department patient visit Darryl Ragsdale MD Work Phone: [facility] Comment on above: Abdominal pain, unsp ecified abdominal location (Primary Dx); Gastroparesis; Constipation, unspecified constipation type Start: 06-13-2025 End: 06-13-2025 Emergency department patient visit Peter French DO Work Phone: [facility] Comment on above: Cough, unspecified t ype (Primary Dx) Start: 04-23-2025 End: 04-23-2025 Telephone encounter Yajaira Lackey DO Work Phone: Colorectal Surgery Start: 04-05-2025 End: 04-05-2025 ambulatory Merrill Padilla [employer] [employer] Facility[facility] Start: 03-23-2025 End: 03-23-2025 Admission to same day surgery center Ronaldo Sánchez DO Work Phone: General Surgery Comment on above: Fax number Start: 03-23-2025 End: 03-23-2025 ambulatory Ronaldo Sánchez DO Work Phone: General Surgery Start: 02-17-2025 End: 02-17-2025 Patient encounter procedure Best Reynoso MD Work Phone: Pain Management Comment on above: Chronic generalized abdominal pain (Primary Dx); Gastroparesis; 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); Tobacco dependence; Episodic cannabis use Start: 02-17-2025 End: 02-17-2025 ambulatory BEST REYNOSO Facility:[facility] Start: 02-16-2025 End: 03-24-2025 E-mail encounter from caregiver [facility] Provider General Surgery Start: 02-16-2025 End: 03-24-2025 Follow-up encounter [facility] Provider General Surgery Comment on above: Follow up Start: 02-12-2025 End: 02-12-2025 Emergency department patient visit PETER GERMAIN [facility] Start: 02-12-2025 End: 02-12-2025 ambulatory RONALDO SÁNCHEZ Facility:[facility] Start: 02-09-2025 End: 02-09-2025 Emergency department patient visit YOSSI [facility] Emergency Department Comment on above: Gastroparesis (Prima ry Dx) Start: 02-05-2025 End: 02-05-2025 Emergency department patient visit Rod Colmenares MD Work Phone: [facility] Comment on above: Right upper quadrant abdominal pain (Primary Dx) Start: 02-02-2025 End: 02-02-2025 Orders Only Yajaira Hartmane DO Work Phone: Gastroenterology Comment on above: Chronic generalized abdominal pain (Primary Dx) Start: 02-01-2025 End: 02-02-2025 ambulatory Yajaira Lackey DO Work Phone: Gastroenterology Comment on above: Help Start: 02-01-2025 End: 02-01-2025 Emergency department patient visit Yossi Golden MD Facility:[facility] Start: 01-26-2025 End: 01-26-2025 [facility] Start: 01-25-2025 End: 01-26-2025 Telephone encounter Yajaira Lackey DO Work Phone: [facility] Comment on above: Patient Question ([facility] and would like to speak with someone ) Start: 01-25-2025 End: 01-25-2025 Emergency department patient visit Yossi Golden MD Facility:[facility] Start: 01-22-2025 End: 01-22-2025 Telephone encounter Yajaira Jessica Ziyad DO Work Phone: General Surgery Comment on above: Medication Authoriza tion (PA for Gimoti (renewal)/) Start: 01-20-2025 End: 01-20-2025 Refill Yossi Golden MD Work Phone: [facility] Comment on above: DDD (degenerative di sc disease), lumbar Start: 01-18-2025 End: 01-18-2025 Emergency department patient visit Yossi Golden MD Facility:[facility] Start: 01-13-2025 ambulatory RONALDO SÁNCHEZ Facilit y:[facility] Start: 01-01-2025 End: 01-01-2025 Emergency department patient visit Imelda Huynh MD Work Phone: [facility] Emergency Department Comment on above: Right upper quadrant abdominal pain (Primary Dx) Start: 12-28-2024 End: 12-28-2024 ambulatory Merrill Padilla PREP [employer]OOK-S[employer]ESPERSON [employer]OWERS Facility: [facility] Start: 12-24-2024 End: 12-24-2024 Admission to establishment [place] [id number] Work Phone: Pre Anesthesia Start: 12-24-2024 End: 12-24-2024 ambulatory RONALDO SÁNCHEZ Facility:[facility] Start: 12-24-2024 End: 12-24-2024 Anesthesia consultation [place] [id number] Work Phone: Pre Anesthesia Comment on above: [...] Start: 12-24-2024 End: 12-24-2024 Preprocedural examination done [place] [id number] Work Phone: [facility] Start: 12-15-2024 End: 12-15-2024 Telephone encounter Ronaldo Sánchez DO Work Phone: General Surgery Comment on above: Care Coordination (S chedule procedure and follow up appt////) Start: 12-15-2024 End: 12-15-2024 Admission to same day surgery center Ronaldo Sánchez DO Work Phone: General Surgery Comment on above: Gastroparesis (Prima ry Dx); Gastroesophageal reflux disease, unspecified whether esophagitis present; Functional constipation Start: 12-15-2024 End: 12-15-2024 ambulatory RONALDO SÁNCHEZ Facility:[facility] Start: 12-15-2024 End: 12-15-2024 Telemedicine consultation with patient Ronaldo Kwan Princess DO Work Phone: General Surgery Start: 12-04-2024 End: 12-04-2024 ambulatory Yajaira Lackey DO Work Phone: Gastroenterology Comment on above: EGG RESULTS Start: 12-04-2024 End: 12-04-2024 Patient encounter procedure Yajaira Lackey DO Work Phone: Gastroenterology Start: 12-03-2024 End: 12-03-2024 Telephone encounter Yajaira Lackey DO Work Phone: Gastroenterology Start: 12-02-2024 End: 12-02-2024 [facility] Start: 12-02-2024 End: 12-02-2024 Telephone encounter Yajaira Lackey DO Work Phone: Gastroenterology Comment on above: Medication Preauthor ization (PA for Gimoti) Start: 12-02-2024 End: 12-02-2024 [facility] Start: 12-02-2024 End: 12-02-2024 Patient encounter [...] Department Unsolicited Start: 11-04-2024 End: 11-06-2024 ambulatory [facility] Start: 11-04-2024 End: 11-06-2024 Emergency department patient visit Ric Ambrose MD [facility] Comment on above: Acute pancreatitis, unspecified complication status, unspecified pancreatitis type (Primary Dx) Start: 10-22-2024 End: 10-22-2024 Orders Only Yossi Golden MD Work Phone: [facility] Comment on above: Generalized anxiety disorder (CMS/HCC) Start: 10-20-2024 End: 10-21-2024 Evaluation and management of inpatient Kaylie Sommer DO Work Phone: [facility] MED SURG Comment on above: Acute pancreatitis, unspecified complication status, unspecified pancreatitis type (Primary Dx) Start: 10-17-2024 End: 10-17-2024 Emergency department patient visit JON BARRIOS MD Facility:[facility] Start: 10-15-2024 End: 10-15-2024 Emergency department patient visit Cameron Conklin [facility] Start: 10-13-2024 End: 10-13-2024 ambulatory Aly Beverly Facility:[facility] Start: 10-13-2024 End: 10-13-2024 [facility] Start: 10-08-2024 End: 10-08-2024 Emergency department patient visit Alphonso Mcdonnellmoe [facility] Start: 10-08-2024 End: 10-08-2024 Office outpatient visit 25 minutes Yossi Golden MD Work Phone: [facility] Comment on above: Type 2 diabetes chuy [...] 10-06-2024 Emergency department patient visit Phan Sandy [facility] Start: 10-04-2024 End: 10-05-2024 Emergency department patient visit Rob Leach Facility:[facility] Start: 10-01-2024 End: 10-01-2024 ambulatory Merrill Padilla PREP [employer]ERSON [employer]OWERS Facility: [facility] Start: 09-30-2024 End: 09-30-2024 Clinisync Result Encounter Generic External Data Provider [facility] External Department Unsolicited Start: 09-30-2024 End: 09-30-2024 Clinisync Result Encounter Generic External Data Provider [facility] External Department Unsolicited Start: 09-30-2024 End: 09-30-2024 Emergency department patient visit Cameron Conklin [facility] Start: 09-30-2024 End: 09-30-2024 [facility] Start: 09-30-2024 End: 09-30-2024 Subsequent hospital visit by physician Yossi Golden MD Work Phone: [facility] Laboratory Start: 09-24-2024 End: 09-24-2024 Telephone encounter Yajaira Lackey DO Work Phone: Gastroenterology Comment on above: Appointment Start: 09-17-2024 End: 09-17-2024 Emergency department patient visit Rod Colmenares MD Work Phone: [facility] Comment on above: Nausea and vomiting, unspecified vomiting type (Primary Dx) Start: 09-10-2024 End: 09-10-2024 ambulatory Lu Talal Sarmini Facility:[facility] Start: 09-10-2024 End: 09-10-2024 Patient encounter procedure Lu Talal Sarmini [facility] Start: 09-02-2024 End: 09-02-2024 ambulatory Lu Talal Sarmini Facility:[facility] Start: 08-24-2024 End: 08-24-2024 Emergency department patient visit Phan Sandy [facility] Start: 08-14-2024 ambulatory Facility:[facility] Start: 08-13-2024 End: 08-14-2024 ambulatory Beatriz ODESIREEKWU Facility:[facility] Start: 08-13-2024 Emergency department patient visit Cameron Conklin Facility:[facility] Start: 08-13-2024 End: 08-14-2024 Observation Beatriz OMERRILLWU [facility] Start: 08-11-2024 End: 08-11-2024 Rosangelao flowsheet Yossi Golden MD Work Phone: [facility] [...] Start: 08-10-2024 End: 08-10-2024 ambulatory Aly Beverly Facility:[facility] Start: 08-10-2024 End: 08-10-2024 [facility] Start: 08-07-2024 End: 08-07-2024 Emergency department patient visit Phan Sandy [facility] Start: 08-06-2024 End: 08-07-2024 Emergency department patient visit Cameron AyoubDanni Conklin [facility] Start: 08-06-2024 End: 08-06-2024 Emergency department patient visit Michael Solo MD Work Phone: [facility] ED Comment on above: Generalized abdomina l pain (Primary Dx) Start: 07-29-2024 End: 07-29-2024 Emergency department patient visit Alphonso Sullivan [facility] Start: 07-29-2024 End: 07-29-2024 ambulatory Lu Talal Sarmini Facility:[facility] Start: 07-29-2024 End: 07-29-2024 Patient encounter procedure Lu Talal Sarmini [facility] Start: 07-09-2024 End: 07-09-2024 [...] Department Unsolicited Start: 07-07-2024 End: 07-08-2024 [facility] Start: 07-07-2024 End: 07-08-2024 Emergency department patient visit Kaylie Sommer DO Work Phone: [facility] MED SURG Comment on above: Generalized abdomina l pain (Primary Dx) Start: 07-05-2024 End: 07-05-2024 Emergency department patient visit Cameron Conklin Facility:[facility] Start: 06-30-2024 End: 06-30-2024 ambulatory Charli Goodson APRN-SALESPERSON FLOWERS [facility] Start: 06-23-2024 End: 06-23-2024 Refill Yossi Golden MD Work Phone: [facility] Comment on above: Generalized anxiety disorder (CMS/HCC) (Primary Dx); DDD (degenerative disc disease), lumbar Start: 06-20-2024 End: 06-20-2024 Emergency department patient visit Rob Soco [facility] Start: 06-18-2024 End: 06-18-2024 ambulatory Aly Beverly Facility:[facility] Start: 06-18-2024 End: 06-18-2024 Patient encounter procedure XXXX NONE [facility] Start: 06-14-2024 End: 06-14-2024 Emergency department patient visit Yossi Golden MD Facility:[facility] Start: 06-09-2024 End: 06-09-2024 Telephone encounter Yossi Golden MD Work Phone: [facility] Start: 06-09-2024 End: 06-09-2024 Emergency department patient visit Chavo Squires Facility:[facility] Start: 06-08-2024 End: 06-08-2024 Bamboo flowsheet Yossi [...] 06-08-2024 ambulatory YOSSI GOLDEN Not Available Start: 06-01-2024 End: 06-01-2024 ambulatory Aly Beverly Facility:[facility] Start: 06-01-2024 End: 06-01-2024 Patient encounter procedure [facility] Beto [facility] Start: 05-27-2024 End: 05-27-2024 ambulatory Yossi Golden MD Facility:[facility] Start: 05-26-2024 End: 05-26-2024 Emergency department patient visit Yoly Strange MD Work Phone: [facility] ED Comment on above: Epigastric pain (Katherine donna Dx) Start: 05-23-2024 End: 05-24-2024 Evaluation and management of inpatient Naima Gennari Facility:[facility] Start: 05-22-2024 Emergency department patient visit Camreon Donato Conklin Facility:[facility] Start: 05-22-2024 End: 05-24-2024 Evaluation and management of inpatient Naima Sewell [facility] Start: 05-15-2024 End: 05-15-2024 Emergency department patient visit Yossi Golden MD Facility:[facility] Start: 05-14-2024 End: 05-16-2024 Subsequent hospital visit by physician Sanjay [address] Nuclear Medicine Comment on above: Arrived Diabetic gastropares is (HCC) Start: 05-04-2024 Procedure Monika Bell rne Other [facility] Office Start: 05-01-2024 End: 05-01-2024 Emergency department patient visit Yossi Golden MD Facility:[facility] Start: 04-29-2024 End: 04-29-2024 ambulatory YOSSI GOLDEN Not Available Start: 04-27-2024 End: 04-27-2024 Emergency department patient visit Nehal Rapp DO Facility:[facility] Start: 04-26-2024 End: 04-26-2024 Emergency department patient visit Yossi Golden MD Facility:[facility] Start: 04-24-2024 End: 04-24-2024 Emergency department patient visit Yossi Golden MD Facility:[facility] Start: 04-21-2024 End: 04-21-2024 Subsequent hospital visit by physician Yossi Golden MD Work Phone: [facility] Laboratory Start: 04-21-2024 End: 04-21-2024 ambulatory YOSSI GOLDEN Not Available Start: 04-20-2024 End: 04-20-2024 Emergency department patient visit Sybil Abel MD Facility:[facility] Start: 03-19-2024 End: 03-19-2024 ambulatory Devang Alejandre PA-C Facility:[facility] Start: 03-15-2024 End: 03-15-2024 Emergency department patient visit Sybil Abel MD Facility:[facility] Start: 03-10-2024 End: 03-11-2024 Emergency department patient visit Kaden Verma DO Facility:[facility] Start: 02-26-2024 End: 02-26-2024 ambulatory Yossi Golden MD Facility:[facility] Start: 02-12-2024 End: 02-12-2024 ambulatory Yossi Golden MD Facility:[facility] Start: 02-07-2024 End: 02-07-2024 Emergency department patient visit Katie Negron Lev PREP [employer]ERSON [employer]OWERS Facility:[facility] Start: 02-05-2024 End: 02-05-2024 Emergency department patient visit Yossi Golden MD Work Phone: [facility] ED Comment on above: Chronic abdominal pa in (Primary Dx); Diarrhea, unspecified type Start: 01-30-2024 End: 01-30-2024 Emergency department patient visit Charly Seay DO Work Phone: [facility] ED Comment on above: Chest pain, unspecif ied type (Primary Dx) Start: 01-04-2024 End: 01-04-2024 Emergency department patient visit Fabrice Bosch MD Work Phone: [facility] ED Comment on above: Diarrhea, unspecifie d type (Primary Dx); Viral illness Start: 11-23-2023 End: 11-24-2023 Emergency department patient visit Samy Walker MD [facility] ED Comment on above: Lower abdominal pain (Primary Dx) Start: 11-13-2023 End: 11-14-2023 Emergency department patient visit Nilda Deal MD Facility:[facility] Start: 10-14-2023 End: 10-14-2023 Emergency department patient visit Samy Walker MD [facility] ED Comment on above: Influenza A (Primary Dx) Start: 09-04-2023 End: 09-04-2023 Subsequent hospital visit by physician Bridgett Zambrano PTA [facility] Start: 03-23-2023 End: 03-23-2023 Emergency department patient visit Darryl Ragsdale MD Work Phone: [facility] ED Comment on above: Syncope, unspecified syncope type (Primary Dx) Start: 02-18-2023 End: 02-18-2023 Emergency department patient visit Samy Walker MD [facility] ED Comment on above: Hyperglycemia (Prima ry Dx); Diarrhea, unspecified type Start: 12-26-2022 End: 12-26-[address] YOSSI GOLDEN Facility:[facility] Start: 12-24-2022 End: 12-24-2022 Emergency department patient visit Anahi Phelps DO Work Phone: [facility] ED Comment on above: Chest pain, unspecif ied type (Primary Dx) Start: 12-04-2022 End: 12-04-2022 Patient encounter procedure Yajaira GARDNER General Surgery Nill/Said Will Start: 11-21-2022 End: 11-21-2022 Admission to same day surgery center Yajaira GARDNER [facility] General Surgery [place] Start: 11-21-2022 End: 11-21-2022 Subsequent hospital visit by physician Yossi Golden MD Work Phone: [facility] Start: 11-12-2022 End: 11-12-2022 Subsequent hospital visit by physician Maryam Encinas DO Work Phone: [facility] OR Comment on above: Post-op pain (Primar y Dx); Dysmenorrhea Start: 11-01-2022 End: 11-01-2022 Emergency department patient visit Yossi Golden MD Work Phone: [facility] ED Comment on above: Chronic pelvic pain in female (Primary Dx) Start: 10-05-2022 End: 10-05-2022 Emergency department patient visit Ty Dillard MD Work Phone: [facility] ED Comment on above: Endometriosis (Prima ry Dx) Start: 09-27-2022 End: 09-28-2022 Emergency department patient visit Oliver Arenas MD Work Phone: [facility] ED Comment on above: Lower abdominal pain (Primary Dx); Endometriosis; History of PCOS; Morbid obesity due to excess calories (HCC) Start: 07-08-2022 End: 07-08-2022 Emergency department patient visit Yossi Golden MD Work Phone: [facility] ED Comment on above: Bronchitis (Primary Dx) Start: 04-23-2022 End: 04-23-[address] YOSSI GOLDEN Facility:[facility] Start: 03-23-2022 Encounter for genera l adult medical examination without abnormal findings DR YOSSI GOLDEN [facility] Start: 03-21-2022 End: 03-22-[address] YOSSI GOLDEN Facility:[facility] Start: 03-21-2022 End: 03-22-2022 Encounter for general adult medical examination without abnormal findings DR YOSSI GOLDEN Facility:[facility] Start: 03-11-2022 End: 03-11-2022 Emergency department patient visit Samy Walker MD [facility] ED Comment on above: Generalized abdomina l pain (Primary Dx); Diarrhea, unspecified type; Nausea Start: 01-04-2022 End: 01-04-2022 Emergency department patient visit Renard Watkins MD Work Phone: [facility] ED Comment on above: Musculoskeletal pain (Primary Dx) Start: 12-05-2021 End: 12-05-2021 Emergency department patient visit Samy Walker MD [facility] ED Comment on above: Hyperglycemia (Prima ry Dx) Start: 09-06-2021 End: 09-06-2021 Emergency department patient visit Yossi Goldne MD Work Phone: [facility] ED Comment on above: Cough (Primary Dx); Acute upper respiratory infection; Encounter for laboratory testing for COVID-19 virus Start: 06-02-2021 End: 06-02-2021 Emergency department patient visit Yossi Golden MD Work Phone: [facility] ED Comment on above: Acute bronchitis, un specified organism (Primary Dx) Start: 05-26-2021 End: 05-28-2021 Subsequent hospital visit by physician Sanjay Ramirez Radiologist [facility] Comment on above: Abdominal pain, epig astric Start: 05-22-2021 End: 05-22-2021 [facility] Covid Scre ening Start: 05-22-2021 End: 05-22-2021 Subsequent hospital visit by physician Sophy Covid Screening Schedule [facility] Covid Screening Comment on above: Preop testing Start: 05-16-2021 End: 05-16-2021 Subsequent hospital visit by physician Yossi Golden MD Work Phone: [facility] Laboratory Start: 03-20-2021 End: 03-20-2021 Subsequent hospital visit by physician Maryam Encinas DO Work Phone: [facility] OR Comment on above: Post-op pain (Primar y Dx) Start: 11-27-2020 End: 11-28-2020 Emergency department patient visit Praveen Díaz Work Phone: [facility] ED Comment on above: Abscess of right thi gh (Primary Dx) Start: 09-24-2020 End: 09-26-2020 Evaluation and management of inpatient Guy Sweet Tristen Work Phone: [facility] Comment on above: Lumbar disc herniati on with radiculopathy (Primary Dx) Start: 09-24-2020 End: 09-24-2020 [facility] Comment on above: Acute midline low ba ck pain with bilateral sciatica (Primary Dx) Start: 09-17-2020 End: 09-17-2020 Emergency department patient visit Yossi [facility] ED Comment on above: Lumbar disc herniati on (Primary Dx) Start: 08-27-2020 End: 08-27-2020 Emergency department patient visit Oliver Arenas Work Phone: [facility] ED Comment on above: Right lower quadrant abdominal pain (Primary Dx) Start: 08-13-2020 End: 08-13-2020 Emergency department patient visit Oliver Arenas Work Phone: [facility] ED Comment on above: Closed head injury, initial encounter (Primary Dx); Injury of head, initial encounter; Concussion without loss of consciousness, initial encounter Start: 08-05-2020 End: 08-05-2020 Subsequent hospital visit by physician Yossi Golden [facility] Laboratory Comment on above: PE (pulmonary thromb oembolism) (HCC); Hypercoagulable state (HCC); Smoker Start: 07-25-2020 End: 07-25-2020 Subsequent hospital visit by physician Yossi Golden [facility] Laboratory Comment on above: Iron deficiency anem ia due to chronic blood loss Start: 06-13-2020 End: 06-15-2020 Evaluation and management of inpatient Krystina Llanes Work Phone: [facility] Comment on above: Acute pulmonary embo lism without acute cor pulmonale, unspecified pulmonary embolism type (HCC) (Primary Dx) Start: 05-22-2020 End: 05-24-2020 Evaluation and management of inpatient Ramila Dixie Elmore Work Phone: [facility] Labor and Delivery Comment on above: Status post repeat l ow transverse section (Primary Dx) Start: 05-19-2020 End: 05-19-2020 Subsequent hospital visit by physician Ramila Bustillos Work Phone: [facility] Labor and Delivery Start: 05-16-2020 End: 05-16-2020 Subsequent hospital visit by physician Yossi Golden [facility] Start: 05-11-2020 End: 05-11-2020 Subsequent hospital visit by [facility] EKG Comment on above: History of pre-eclam psia; Palpitations; LVH (left ventricular hypertrophy); Tachycardia Start: 04-29-2020 End: 04-29-2020 Subsequent hospital visit by physician Maryam Encinas Work Phone: [facility] Start: 04-07-2020 End: 04-08-2020 Subsequent hospital visit by physician Colten Valenzuela Work Phone: [facility] Start: 04-02-2020 End: 04-03-2020 Subsequent hospital visit by physician Maryam Encinas Work Phone: [facility] Labor and Delivery Start: 03-29-2020 End: 03-29-2020 Subsequent hospital visit by physician Ramila Elmore Work Phone: [facility] Labor and Delivery Start: 02-26-2020 End: 02-26-2020 Subsequent hospital visit by physician Maryam Encinas Work Phone: [facility] Labor and Delivery Start: 02-02-2020 End: 02-04-2020 Subsequent hospital visit by physician [facility] Ultrasound Comment on above: RUQ pain Start: 02-01-2020 End: 02-01-2020 Subsequent hospital visit by physician Diann Farfan Work Phone: [facility] Labor and Delivery Start: 02-01-2020 End: 02-01-2020 Emergency department patient visit Krystina Llanes Work Phone: [facility] ED Comment on above: Dizziness (Primary D x); Right upper quadrant abdominal pain Start: 01-10-2020 End: 01-11-2020 Emergency department patient visit Efra Vazquez Work Phone: [facility] ED Comment on above: Trichomoniasis (Prim felisa Dx) Start: 12-30-2019 End: 12-30-2019 Subsequent hospital visit by physician [facility] EKG Comment on above: Essential hypertensi on; Palpitations; Lightheadedness; SOB (shortness of breath); Tachycardia; Episodic lightheadedness Start: 12-18-2019 End: 12-18-2019 Subsequent hospital visit by physician Yossi Golden [facility] Laboratory Start: 12-14-2019 End: 12-14-2019 Emergency [facility] Comment on above: Fall, initial encoun ter (Primary Dx) Start: 09-24-2019 End: 09-24-2019 Emergency department patient visit Rod Conte MD Work Phone: [facility] ED Comment on above: Acute upper respirat ory infection (Primary Dx); Positive test Start: 07-28-2019 End: 07-29-2019 Emergency department patient visit Efra Vazquez Work Phone: [facility] ED Comment on above: Cyst of right ovary (Primary Dx) Start: 05-25-2019 End: 05-25-2019 Emergency department patient visit Yossi Golden [facility] ED Comment on above: Non-intractable vomi ting with nausea, unspecified vomiting type (Primary Dx) Start: 05-19-2019 End: 05-21-2019 Subsequent hospital visit by physician [facility] Imaging Room [facility] Vascular Lab Comment on above: Right leg pain Start: 05-19-2019 End: 05-19-2019 Emergency department patient visit Rod Inés Work Phone: [facility] ED Comment on above: Right leg pain (Prim felisa Dx) Procedures Date Procedure Procedure Detail Performing Clinician Start: 06-22-2025 Comprehensive metabolic panel Darryl Santana dd, MD Work Phone: Start: 06-13-2025 Radiologic exam chest 2 views Peter French DO Work Phone: Start: 06-13-2025 COVID-19, RAPID Peter Sheppard Swade DO Work Phone: Start: 06-13-2025 Comprehensive metabolic panel Peter Rodriguezade DO Work Phone: Start: 02-09-2025 Urinalysis microscopic only Maria A de leon [employer] Work Phone: Start: 02-09-2025 Urine test visual color cmprsn meths Maria A Polanco [employer] Work Phone: Start: 02-09-2025 Ecg routine ecg w/least 12 lds w/i&r Maria A Polanco [employer] Work Phone: Start: 02-09-2025 Ct abdomen & pelvis w/contrast material Maria A Polanco [employer] Work Phone: Start: 02-09-2025 Comprehensive metabolic panel Maria A costa [employer] Work Phone: Start: 02-05-2025 Basic metabolic panel calcium total Nelsy Colmenares MD Work Phone: Start: 02-05-2025 Hepatic function panel Rod Colmenares MD Work Phone: Start: 01-01-2025 End: 01-01-2025 Iaadiadoo influenza Imelda Syed Amina GREWAL Work Phone: Start: 01-01-2025 Urnls dip stick/tablet rgnt auto w/o microscopy Imelda Syed Amina GREWAL Work Phone: Start: 01-01-2025 Comprehensive metabolic panel Imelda Syed Brigid min MD Work Phone: Start: 11-06-2024 End: 11-06-2024 GLUCOSE, WHOLE BLOOD Wilman Bains MD Work Phone: Start: 11-06-2024 CT ABDOMEN PELVIS W IV CONTRAST Generic External Data Provider Start: 11-06-2024 Assay of lipase Colten L Daina [employer] Work Phone: Start: 11-06-2024 MHPT CBC WITH DIFF Generic External Data Provider Start: 11-05-2024 GLUCOSE, WHOLE BLOOD Wilman Bains MD Work Phone: Start: 11-05-2024 GLUCOSE, WHOLE BLOOD Wilman Bains MD Work Phone: Start: 11-05-2024 GLUCOSE, WHOLE BLOOD Wilman Bains MD Work Phone: Start: 11-05-2024 GLUCOSE, WHOLE BLOOD Wilman Bains MD Work Phone: Start: 11-05-2024 Assay of lipase Colten L Daina [employer] Work Phone: Start: 11-05-2024 MHPT CBC WITH [...] Start: 10-21-2024 Assay of lipase Aissatou Salcedo [employer] Work Phone: Start: 10-20-2024 End: 10-20-2024 GLUCOSE, [...] Start: 09-30-2024 Hemoglobin glycosylated a1c Merrill maciel [employer] Work Phone: Start: 09-30-2024 Lipid panel Merrill Padilla [employer] Work Phone: Start: 09-17-2024 Basic metabolic panel calcium total Nelsy Colmenares MD Work Phone: Start: 09-17-2024 Hepatic function panel Rod Colmenares MD Work Phone: Start: 09-17-2024 Urinalysis microscopic only Rod Kwan Work Phone: Start: 09-17-2024 Urnls dip stick/tablet rgnt auto w/o microscopy Rod Colmenares MD Work Phone: Start: 09-02-2024 Esophagogastroduodenoscopy Aly nguyen Start: 08-06-2024 Urnls dip stick/tablet reagent auto microscopy Michael Solo MD Work Phone: Start: 08-06-2024 Comprehensive metabolic panel Michael Solo MD Work Phone: Start: 07-08-2024 GLUCOSE, WHOLE BLOOD Dedra Pineda MD Work Phone: Start: 07-08-2024 GLUCOSE, WHOLE BLOOD Dedra Pineda MD Work Phone: Start: 07-08-2024 BASIC METABOLIC PANEL W/ REFLEX TO MG FOR LOW K Aissatou Salcedo [employer] Work Phone: Start: 07-08-2024 HMHP BASIC METABOLIC PANEL REFLEX MG Generic External Data Provider Start: 07-07-2024 GLUCOSE, WHOLE BLOOD Dedra Pineda MD Work Phone: Start: 07-07-2024 GLUCOSE, WHOLE BLOOD Dedra Pineda MD Work Phone: Start: 07-07-2024 MHPT GLUCOSE, WHOLE BLOOD Generic Paper Feeder al Data Provider Start: 07-07-2024 Urinalysis microscopic only Kaylie Sommer DO Work Phone: Start: 07-07-2024 Urnls dip stick/tablet rgnt auto w/o microscopy Kaylie Sommer DO Work Phone: Start: 07-07-2024 Comprehensive metabolic panel Kaylie Sommer DO Work Phone: Start: 05-26-2024 Comprehensive metabolic panel Nilda bronson DO Work Phone: Start: 05-26-2024 Urnls dip stick/tablet rgnt auto w/o microscopy Nilda Rich DO Work Phone: Start: 05-14-2024 Gastric emptying [...] Start: 01-04-2024 Basic metabolic panel calcium total Fabrice Bosch MD Work Phone: Start: 01-04-2024 COVID-19, RAPID Fabrice Bosch MD Work Phone: Start: 01-04-2024 Iaadiadoo influenza Fabrice Bosch MD Work Phone: Start: 11-23-2023 Ct abdomen & pelvis w/contrast material Samy Walker MD Start: 11-23-2023 Urnls dip stick/tablet reagent auto microscopy Samy Walker MD Start: 11-23-2023 Comprehensive metabolic panel Samy Kwan Start: 10-14-2023 COVID-MAGALY Shoemaker MD Start: 10-14-2023 Iaaniurka Walker MD Start: 03-23-2023 Radiologic exam chest single view Trudy Ragsdale MD Work Phone: Start: 03-23-2023 Ct head/brain w/o contrast material Pearl Ragsdale MD Work Phone: Start: 03-23-2023 Comprehensive metabolic panel Darryl Santana dd, MD Work Phone: Start: 02-18-2023 Ct abdomen & pelvis w/contrast material Samy Walker MD Start: 02-18-2023 GLUCOSE, WHOLE BLOOD Samy Walker MD Start: 02-18-2023 Radiologic exam chest single view Samy painter MD Start: 02-18-2023 End: 02-18-2023 Comprehensive metabolic panel Samy Kwan Start: 02-18-2023 Blood gases any combination ph pco2 po2 co2 hco3 Samy Walker MD Start: 02-18-2023 SPECIMEN REJECTION Samy Walker MD Start: 02-18-2023 Urnls dip stick/tablet reagent auto microscopy Samy Walker MD Start: 02-18-2023 GLUCOSE, WHOLE BLOOD Yossi Golden MD Work Phone: Start: 12-24-2022 Basic metabolic panel calcium total Jave randi Cam Phelps DO Work Phone: Start: 12-24-2022 Urinalysis microscopic only Anahi J Iq bal DO Work Phone: Start: 12-24-2022 Urnls dip stick/tablet rgnt auto w/o microscopy Anahi Levy Phelps DO Work Phone: Start: 12-24-2022 Ecg routine ecg w/least 12 lds w/i&r Anahi Levy Phelps DO Work Phone: Start: 12-24-2022 Radiologic exam chest single view Jaevei erica Levy Phelps DO Work Phone: Start: 11-21-2022 Hemoglobin [...] 07-08-2022 Radiologic exam chest 2 views Ricardo Solis-C Work Phone: Start: 07-08-2022 Comprehensive metabolic panel Ricardo sosa PA-C Work Phone: Start: 03-11-2022 Ct abdomen & pelvis w/contrast material Samy Walker MD Start: 03-11-2022 Blood count complete auto&auto difrntl wbc Samy Walker MD Start: 03-11-2022 COVID-, RAPID Samy Walker MD Start: 03-11-2022 Urine test visual color cmprsn methjessica Samy Walker MD Start: 03-11-2022 Urnls dip stick/tablet reagent auto microscopy Samy Walker MD Start: 01-04-2022 End: 01-04-2022 Radex forearm 2 views Renard Watkins MD Work Phone: Start: 12-05-2021 Gluc bld gluc mntr dev cleared fda spec home use Samy Walker MD Start: 12-05-2021 End: 12-05-2021 GLUCOSE, WHOLE BLOOD Yossi Golden MD Work Phone: Start: 09-06-2021 COVID-19, RAPID Caleb Tripp PA-C Work Phone: Start: 06-02-2021 Radiologic exam chest 2 views Silvio kilgore PA-C Work Phone: Start: 05-26-2021 Radiologic exam [...] spinal canal lumbar w/o contrast material Klaus Chanel Thereson S.p.A.gamaliel Work Phone: Start: 09-25-2020 Mri spinal canal thoracic w/o contrast matrl Steveneliseeric Yanique Thereson S.p[employer]A.gamaliel Work Phone: Start: 09-24-2020 Blood count complete [...] Ct head/brain w/o contrast material Cipr kylee Crismaru Work Phone: Start: 08-05-2020 Assay of homocysteine Tyrone Mitchellli Work Phone: Start: 07-25-2020 Blood count complete auto&auto difrntl wbc Maryam Encinas Work Phone: Start: 06-15-2020 Blood count complete automated Aissatou Maldonado Beba Work Phone: Start: 06-14-2020 Dup-scan xtr veins complete bilateral study Dedra Pineda Work Phone: Start: 06-14-2020 Blood count complete automated Aissatou A Beba Work Phone: Start: 06-13-2020 Intermittent pulse [...] Start: 05-22-2020 Blood typing serologic abo Michael Whalen es Work Phone: Start: 05-22-2020 Level iv surg pathology gross&microscopic exam Michael Helms Work Phone: Start: 05-22-2020 Drug screen class list a Michael Helms Work Phone: Start: 05-19-2020 nonstress test Ramila P Apollo Work Phone: Start: 04-29-2020 Urnls dip stick/tablet rgnt auto w/o microscopy Maryam F Rony Encinas Work Phone: Start: 04-07-2020 Urnls dip stick/tablet rgnt auto w/o microscopy Colten Nicolas Work Phone: Start: 04-02-2020 Assay of thyroid stimulating hormone tsh Maryam F Rony Encinas Work Phone: Start: 04-02-2020 Blood count complete auto&auto difrntl wbc Maryam F Rony Encinas Work Phone: Start: 04-02-2020 Urinalysis microscopic only Maryam F Dot y Encinas Work Phone: Start: 04-02-2020 Urnls dip stick/tablet rgnt auto w/o microscopy Maryam Encinas Work Phone: Start: 03-29-2020 GLUCOSE, WHOLE BLOOD Ramila Elmore Work Phone: Start: 03-29-2020 Urinalysis microscopic only Maryam Lyons Work Phone: Start: 03-29-2020 Urnls dip stick/tablet rgnt auto w/o microscopy Maryam Encinas Work Phone: Start: 02-26-2020 Blood count complete automated Diann E Pool Work Phone: Start: 02-26-2020 Comprehensive metabolic panel Diann E Pool Work Phone: Start: 02-26-2020 Urnls dip stick/tablet rgnt auto w/o microscopy Ramila Elmore Work Phone: Start: 02-02-2020 Us abdominal real time w/image limited Krystina Patricia Llanes Work Phone: Start: 02-01-2020 Urnls dip stick/tablet rgnt auto w/o microscopy Krystina E Mario Alberto Work Phone: Start: 02-01-2020 Assay of lipase Krystina E Mario Alberto Work Phone: Start: 02-01-2020 Assay of magnesium Krystina Patricia Mario Alberto Work Phone: Start: 02-01-2020 BASIC METABOLIC PANEL W/ REFLEX TO MG FOR LOW K Krystina E Mario Alberto Work Phone: Start: 02-01-2020 Blood count complete auto&auto difrntl wbc Krystina Patricia Mario Alberto Work Phone: Start: 02-01-2020 Hepatic function panel Krystina Patricia Berylmelpoly Work Phone: Start: 01-10-2020 Assay of lipase Efra Erica Vazquez Work Phone: Start: 01-10-2020 Blood count complete auto&auto difrntl wbc Efra A George Work Phone: Start: 01-10-2020 Urinalysis microscopic only Efra Hill in Work Phone: Start: 01-10-2020 Urnls dip stick/tablet rgnt auto w/o microscopy Efranelly Ramiressain Work Phone: Start: 12-30-2019 Echo tthrc r-t 2d w/wom-mode compl spec&colr d Silvio Gr Work Phone: Start: 12-18-2019 Creatinine clearance Je C Halie Work Phone: Start: 12-18-2019 Assay of urea nitrogen quantitative Srir jan Ambrose Work Phone: Start: 12-18-2019 Creatinine blood Je C Halie Work Phone: Start: 12-18-2019 Creatinine other source Je C Bradyni Work Phone: Start: 12-18-2019 Protein total xcpt refractometry urine Je C Halie Work Phone: Start: 11-23-2019 ABO, EXTERNAL RESULT [...] 07-29-2019 Ct abdomen & pelvis w/contrast material Efranelly Vazquez Work Phone: Start: 07-28-2019 Assay of lipase Efra Vazquez Work Phone: Start: 07-28-2019 Blood count complete auto&auto difrntl wbc Efra Vazquez Work Phone: Start: 07-28-2019 Gonadotropin chorionic qualitative Efranelly Vazquez Work Phone: Start: 07-28-2019 Lactate [Moles/Vol] Efranelly Vazquez Work Phone: Start: 07-28-2019 Prothrombin time Efranelly Vazquez Work Phone: Start: 07-28-2019 Thromboplastin time partial plasma/whole blood Efranelly Vazquez Work Phone: Start: 07-28-2019 Urinalysis microscopic [...] routine ecg w/least 12 lds w/i&r Krystina E Eimeles Work Phone: Start: 05-19-2019 Dup-scan xtr veins unilateral/limited study Rod Conte Work Phone: Start: 09-23-2017 section Yajaira NILL Start: 06-27-2017 H/O: section Status post repeat low transverse section Rod Conte MD Work Phone: Start: 09-23-2015 section Yajaira NILL Bilateral oophorectomy William zack GARDNER section Yajaira NIL L Cholecystectomy Yajaira NILL Extraction of wisdom tooth M bennie NILL End: 03-26-2017 H/O: section S/P primary low transverse Rod Conte MD Work Phone: Lacrimal canaliculus structure (body structure) Yajaira NILL Laparoscopic hysterectomy Mi chazack MEADEKael Laparoscopy Yajaira NILL Tonsillectomy Yajaira NILL Plan of Treatment Date Care Activity Detail Author Start: 05-24-2030 DTaP/Tdap/Td vaccine (8 - Td or Tdap) DTaP/Tdap/Td vaccine (8 - Td or Tdap) [facility] Start: 05-24-2030 DTaP/Tdap/Td vaccine (8 - Td) DTaP/Tdap/Td vaccine (8 - Td) [place] Start: 05-24-2030 DTaP/Tdap/Td vaccine (9 - Td or Tdap) DTaP/Tdap/Td vaccine (9 - Td or Tdap) [facility] Start: 05-24-2030 Urine microalbumin profile DTaP,Tdap,Td Vaccine (4 - Td or Tdap) [facility] Start: 10-21-2027 DTaP/Tdap/Td vaccine (7 - Td) DTaP/Tdap/Td vaccine (7 - Td) [place] Start: 06-22-2026 GFR test (Diabetes, CKD 3-4, OR last GFR 15-59) GFR test (Diabetes, CKD 3-4, OR last GFR 15-59) [facility] Start: 06-13-2026 GFR test (Diabetes, CKD 3-4, OR last GFR 15-59) GFR test (Diabetes, CKD 3-4, OR last GFR 15-59) [facility] Start: 05-13-2026 Glaucoma screening Diabetes: Retinopathy Screening [facility] Start: 02-09-2026 GFR test (Diabetes, CKD 3-4, OR last GFR 15-59) GFR test (Diabetes, CKD 3-4, OR last GFR 15-59) [facility] Start: 02-05-2026 GFR test (Diabetes, CKD 3-4, OR last GFR 15-59) GFR test (Diabetes, CKD 3-4, OR last GFR 15-59) [facility] [employer] [facility] Start: 01-01-2026 GFR test (Diabetes, CKD 3-4, OR last GFR 15-59) GFR test (Diabetes, CKD 3-4, OR last GFR 15-59) [facility] Start: 11-06-2025 GFR test (Diabetes, CKD 3-4, OR last GFR 15-59) GFR test (Diabetes, CKD 3-4, OR last GFR 15-59) [facility] Start: 10-21-2025 GFR test (Diabetes, CKD 3-4, OR last GFR 15-59) GFR test (Diabetes, CKD 3-4, OR last GFR 15-59) [facility] Start: 09-30-2025 Hemoglobin A1c measurement A1C test (Diabetic or Prediabetic) [facility] Start: 09-30-2025 Hepatitis B surface antibody level LDL Cholesterol [facility] Start: 09-30-2025 Lipid panel Lipids [facility] Start: 09-17-2025 GFR test (Diabetes, CKD 3-4, OR last GFR 15-59) GFR test (Diabetes, CKD 3-4, OR last GFR 15-59) [facility] [employer] [facility] Start: 08-06-2025 GFR test (Diabetes, CKD 3-4, OR last GFR 15-59) GFR test (Diabetes, CKD 3-4, OR last GFR 15-59) [facility] Start: 08-06-2025 Urine screening for protein Diabetes: Urine Protein Screening [facility] Start: 07-08-2025 GFR test (Diabetes, CKD 3-4, OR last GFR 15-59) GFR test (Diabetes, CKD 3-4, OR last GFR 15-59) [facility] Start: 07-08-2025 Urine screening for protein Diabetes: Urine Protein Screening [facility] Start: 07-07-2025 Urine screening for protein Diabetes: Urine Protein Screening [facility] Start: 06-25-2025 End: 06-25-2025 Patient encounter procedure 06/25/2025 12:30 PM EDT [facility] [address] [place], [place] [id number] media/ resched w pt/ allergic to [facility] Comment on above: media/ resched w pt/ allergic to eggs Start: 06-25-2025 End: 06-25-2025 Patient encounter procedure 06/25/2025 10:30 AM EDT [facility] [address] [place] [address] media/ resched w pt/ allergic to [facility] Comment on above: media/ resched w pt/ allergic to eggs Start: 06-25-2025 End: 06-25-2025 Patient encounter procedure 06/25/2025 8:30 AM EDT [facility] [address] [place] [address] media/ resched w pt/ allergic to eggs [facility] Comment on above: media/ resched w pt/ allergic to eggs Start: 06-16-2025 Urine screening for protein Diabetes: Urine Protein Screening [facility] Start: 06-08-2025 Urine screening for protein Diabetes: Urine Protein Screening [facility] Start: 06-04-2025 Hemoglobin A1c measurement [facility] Start: 05-26-2025 GFR test (Diabetes, CKD 3-4, OR last GFR 15-59) GFR test (Diabetes, CKD 3-4, OR last GFR 15-59) [facility] Start: 05-24-2025 COVID-19 Vaccine ( season) COVID-19 Vaccine () [facility] Start: 05-24-2025 Influenza vaccination [facility] Start: 05-20-2025 Urine screening for protein Diabetes: Urine Protein Screening [facility] Start: 04-23-2025 Influenza vaccination [facility] [employer] [facility] Start: 04-21-2025 End: 04-21-2025 Follow-up encounter Pain Management Comment on above: follow up Start: 04-21-2025 GFR test (Diabetes, CKD 3-4, OR last GFR 15-59) GFR test (Diabetes, CKD 3-4, OR last GFR 15-59) [facility] Start: 04-21-2025 Urine screening for protein [facility] Start: 04-07-2025 End: 04-07-2025 Patient encounter procedure 04/07/2025 9:00 AM EDT Office Visit [facility] [address] [place] [address] Yossi Golden MD [address] [place] [address] [facility] Start: 03-30-2025 Hemoglobin A1c measurement Diabetes: Hemoglobin A1C [facility] Start: 02-12-2025 End: 02-12-2025 Admission to same day surgery center 02/12/2025 4:00 PM EDT [facility] General Surgery [facility] [address] [place] [address] Ronaldo Sánchez, [place] [address] 4 wk post op General Surgery Comment on above: 4 wk post op Start: 01-29-2025 GFR test (Diabetes, CKD 3-4, OR last GFR 15-59) GFR test (Diabetes, CKD 3-4, OR last GFR 15-59) [facility] Start: 01-13-2025 End: 01-13-2025 Patient encounter procedure 01/13/2025 7:30 AM EDT Appointment [facility] [place] [address] Ronaldo Sánchez, [place] [address] Gastroparesis [facility] Comment on above: Gastroparesis Start: 01-03-2025 GFR test (Diabetes, CKD 3-4, OR last GFR 15-59) GFR test (Diabetes, CKD 3-4, OR last GFR 15-59) [facility] Start: 12-22-2024 Hemoglobin A1c measurement Diabetes: Hemoglobin A1C JAMAAL [facility] Start: 12-15-2024 End: 12-15-2024 Admission to same day surgery center 12/15/2024 10:30 AM EDT [facility] General Surgery [address] [address] Ronaldo [place]án[place] [address] new gp consult General Surgery Comment on above: new gp consult Start: 12-02-2024 End: 03-03-2025 ACETYLCHOLINE REC BINDING AB [facility] Comment on above: Expected: 12/02/2024, Expires: Start: 12-02-2024 End: 03-03-2025 AMINO ACIDS, PLASMA W/ CONSULTATION [facility] Comment on above: Expected: 12/02/2024, Expires: Start: 12-02-2024 End: 03-03-2025 CARNITINE FREE AND TOTAL, PLASMA [facility] Comment on above: Expected: 12/02/2024, Expires: Start: 12-02-2024 End: 03-03-2025 CYTOKINE PANEL 13, SERUM [facility] Comment on above: Expected: 12/02/2024, Expires: Start: 12-02-2024 End: 03-03-2025 Erythrocyte sedimentation rate [facility] Comment on above: Expected: 12/02/2024, Expires: Start: 12-02-2024 End: 03-03-2025 ESTROGEN FRACTION BL [facility] Comment on above: Expected: 12/02/2024, Expires: Start: 12-02-2024 End: 03-03-2025 Glutamate decarboxylase 65 Ab [Units/volume] in Serum [facility] Comment on above: Expected: 12/02/2024, Expires: Start: 12-02-2024 End: 03-03-2025 Hemoglobin A1c in Blood [facility] Comment on above: Expected: 12/02/2024, Expires: Start: 12-02-2024 End: 03-03-2025 IgA [Mass/volume] in Serum or Plasma [facility] Comment on above: Expected: 12/02/2024, Expires: Start: 12-02-2024 End: 03-03-2025 IgG [Mass/volume] in Serum or Plasma [facility] Comment on above: Expected: 12/02/2024, Expires: Start: 12-02-2024 End: 03-03-2025 IgM [Mass/volume] in Serum or Plasma [facility] Comment on above: Expected: 12/02/2024, Expires: Start: 12-02-2024 End: 03-03-2025 Lactate dehydrogenase [Enzymatic activity/volume] in Serum or Plasma [facility] Work Phone: Comment on above: Expected: 12/02/2024, Expires: Start: 12-02-2024 End: 03-03-2025 ORGANIC ACIDS UR, QUANT W/CONSULTATION [facility] Comment on above: Expected: 12/02/2024, Expires: Start: 12-02-2024 End: 03-03-2025 PYRUVATE+LACTATE BL [facility] Comment on above: Expected: 12/02/2024, Expires: Start: 12-02-2024 End: 03-03-2025 Thyroxine (T4) free [Mass/volume] in Serum or Plasma [facility] Comment on above: Expected: 12/02/2024, Expires: Start: 12-02-2024 End: 03-03-2025 VOLTAGE GATED CA IGG [facility] Comment on above: Expected: 12/02/2024, Expires: Start: 12-02-2024 End: 03-03-2025 Voltage-gated potassium channel Ab [Moles/volume] in Serum [facility] Comment on above: Expected: 12/02/2024, Expires: Start: 10-29-2024 End: 10-29-2024 Patient encounter procedure 10/29/2024 11:30 AM EST Office Visit [facility] [address] [place] [address] Yossi Golden MD [address] [place] [phone] [facility] Start: 10-09-2024 End: 10-09-2024 Patient encounter procedure 10/09/2024 9:15 AM EST Office Visit [facility] [address] [place] [address] Yossi Golden MD [address] [place] [phone] [facility] Start: 10-08-2024 End: 10-08-2024 Patient encounter procedure 10/08/2024 9:45 AM EST Office Visit [facility] [address] [place] [address] Yossi Golden MD [address] [place] [phone] [facility] Start: 09-23-2024 Hemoglobin A1c measurement Diabetes: Hemoglobin A1C [facility] Start: 08-11-2024 End: 08-11-2024 Patient encounter procedure 08/11/2024 11:45 AM EST Office Visit [facility] [address] [place] [address] Yossi Golden MD [address] [place] [address] [facility] Start: 2024 Screening for malignant neoplasm of cervix [facility] Start: 07-22-2024 Hemoglobin A1c measurement [facility] [employer] Start: 07-09-2024 End: 07-09-2024 Patient encounter procedure [facility] Comment on above: Arrived Start: 06-08-2024 End: 06-08-2024 Patient encounter procedure 06/08/2024 1:30 PM EDT Office Visit [facility] [address] [place] [phone] Yossi Golden MD [address] [place] [phone] Arrived [facility] Comment on above: Arrived Start: 05-24-2024 Covid-19 Vaccine ( season) Covid-19 Vaccine ( season) [facility] Start: 05-24-2024 COVID-19 Vaccine ( season) COVID-19 Vaccine ( season) [facility] Start: 05-24-2024 COVID-19 Vaccine ( season) COVID-19 Vaccine ( season) [facility] Start: 05-24-2024 Influenza vaccination Influenza Vaccine (#1) [facility] Start: 05-11-2024 ambulatory Ambulatory Facility:Neurosurgi alex [facility] Start: 04-23-2024 Influenza vaccination [facility] Start: 02-15-2024 Screening for malignant neoplasm of cervix [facility] Start: 11-22-2023 Hemoglobin A1c measurement A1C test (Diabetic or Prediabetic) [facility] Start: 09-25-2023 End: 09-25-2023 Patient encounter procedure 09/25/2023 9:15 AM EST Appointment [facility] Physical Therapy [address] [place] [id number] Lee Morales [facility] Physical Therapy Start: 09-09-2023 End: 09-09-2023 Patient encounter procedure 09/09/2023 9:00 AM EST Appointment [facility] Physical Therapy [address] [place] [address] AlcideschasidyEsthereKRISTOFER [facility] Physical Therapy Start: 07-02-2023 End: 07-02-2023 Patient encounter procedure 07/02/2023 Office Visit Obstetrics and Gynecology Maryam Bess, DO [address] [place] [address] [facility] OBSTETRICS & [facility] Start: 05-24-2023 COVID-19 Vaccine ( season) COVID-19 Vaccine () [facility] Start: 04-23-2023 Influenza vaccination [facility] Start: 12-25-2022 End: 12-25-2022 Patient encounter procedure 12/25/2022 Office Visit Obstetrics and Gynecology Rony Maryam Encinas, DO [address] [place] [address] [facility] Start: 11-21-2022 End: 11-21-2022 Patient encounter procedure 11/21/2022 Office Visit Obstetrics and Gynecology Tracey Rivera PA-C [address] [place] [address] [facility] Start: 11-12-2022 End: 11-12-2022 Admission to same day surgery center 11/12/2022 Surgery IP Unit Maryam Bess, DO [address] [facility] [place] [address] HYSTERECTOMY VAGINAL LAPAROSCOPIC ROBOTIC, POSSIBLE BSO, POSSIBLE LAPAROSCOPIC COLPOPEXY [facility] Comment on above: HYSTERECTOMY VAGINAL LAPAROSCOPIC ROBOTI C, POSSIBLE BSO, POSSIBLE LAPAROSCOPIC COLPOPEXY Start: 11-12-2022 End: 11-12-2022 Anesthesia consultation 11/12/2022 Anesthesia Event IP Unit Magali Elmore, PREP COOK - HEDGE FUND ACCOUNTANT [address] [facility] [address] [place] [address] [facility] Start: 11-12-2022 End: 11-12-2022 Laps total hysterect 250 gm/< w/rmvl tube/ovary HYSTERECTOMY VAGINAL LAPAROSCOPIC ROBOTIC ASSISTED Dysmenorrhea 11/12/2022 11:10 AM [facility] Start: 11-12-2022 Subsequent hospital visit by physician 11/12/2022 Hospital Encounter IP Unit Maryam Bess, DO [address] [facility] [place] [address] [facility] Start: 11-12-2022 End: 11-12-2022 Laps total hysterect 250 gm/< w/rmvl tube/ovary HYSTERECTOMY VAGINAL LAPAROSCOPIC ROBOTIC ASSISTED Dysmenorrhea 11/12/2022 9:45 AM [facility] Start: 10-30-2022 End: 10-30-2022 Patient encounter procedure 10/30/2022 Office Visit Obstetrics and Gynecology Maryam Bess, DO [address] [facility] [place] [address] [facility] OBST[facility]RICS & [facility] Start: 10-01-2022 End: 10-01-2022 Patient encounter procedure 10/01/2022 Office Visit Obstetrics and Gynecology Maryam Bess, DO [address] [facility] [place] [address] [facility] OB[facility]RICS & [facility] Start: 07-31-2022 End: 07-31-2022 Patient encounter procedure 07/31/2022 Office Visit Obstetrics and Gynecology Maryam Bess, DO [address] [place] [address] [facility] OBSTETRICS GYNECOLOGY [facility] Start: 07-31-2022 End: 07-31-2022 Professional / ancillary services management 07/31/2022 Ancillary Procedure Obstetrics and Gynecology [facility] Start: 05-24-2022 Influenza vaccination Flu vaccine (Season Ended) [facility] Start: 05-16-2022 COVID-19 Vaccine (4 - Booster for Pfizer series) COVID-19 Vaccine (4 - Booster for Pfizer series) [facility] Start: 05-16-2022 Hemoglobin A1c measurement A1C test (Diabetic or Prediabetic) [facility] Start: 04-23-2022 Influenza vaccination Flu vaccine (#1) [facility] Start: 02-14-2022 Depression Screen Depression Screen [facility] Start: 02-12-2022 End: 02-12-2022 Patient encounter procedure [facility] GYNECOLOGY Start: 05-26-2021 End: 05-26-2021 Patient encounter procedure 05/26/2021 Appointment Radiology Radiologist, [facility] Radiology Start: 05-24-2021 HbA1c (Bld) [Mass fraction] A1C test (Diabetic or Prediabetic) [place] Start: 05-24-2021 Hemoglobin A1c measurement A1C test (Diabetic or Prediabetic) [facility] Work Phone: Start: 05-24-2021 Influenza vaccination Flu vaccine (#1) [facility] Start: 05-22-2021 End: 05-22-2021 Patient encounter procedure 05/22/2021 Appointment Lab [facility] Covid Screening Start: 12-22-2020 A1C test (Diabetic or Prediabetic) A1C test (Diabetic or Prediabetic) [place] Start: 12-22-2020 HbA1c (Bld) [Mass fraction] A1C test (Diabetic or Prediabetic) [place] Start: 12-06-2020 End: 12-06-2020 Office Visit 12/06/2020 Office Visit Obstetrics and Gynecology Maryam Bess DO [address] [place] [address] [phone] [facility] GYNECOLOGY Start: 11-23-2020 End: 11-23-2020 Office Visit 11/23/2020 Office Visit Cardiology Silvio Gr MD [address] [place] [address] [facility] CARDIOLOGY [facility] Start: 08-25-2020 End: 08-25-2020 Office Visit 08/25/2020 Office Visit Oncology Tyrone Hwang MD [address] [place] [address] [facility] ONCOLOGY SPECIALISTS [facility] Start: 07-04-2020 End: 07-04-2020 Visit 07/04/2020 Visit Obstetrics and Gynecology Maryam Bess, [address] [place], [place] [id number] [facility] GYNECOLOGY Start: 06-29-2020 End: 06-29-2020 Office Visit 06/29/2020 Office Visit Cardiology Silvio Gr MD [address] [place] [address] [facility] CARD[facility] Start: 06-01-2020 End: 06-01-2020 Hospital Encounter [facility] Comment on above: SECTION Start: 05-31-2020 End: 05-31-2020 Ancillary Procedure [facility] Obstetrics & Gynecology Start: 05-29-2020 Cervical cancer screen Cervical cancer screen [place], [place] Start: 05-29-2020 Screening for malignant neoplasm of cervix Cervical cancer [place] Start: 05-26-2020 End: 05-26-2020 Procedure visit [facility] Obstetrics & Gynecology Start: 05-24-2020 Influenza vaccination [place] Start: 05-23-2020 End: 05-23-2020 Ancillary Procedure [facility] Obstetrics & Gynecology Start: 05-19-2020 End: 05-19-2020 Routine 05/19/2020 Routine Obstetrics and Gynecology [facility] GYNECOLOGY Start: 05-10-2020 End: 05-10-2020 Office Visit 05/10/2020 Office Visit Cardiology Silvio Gr MD [address] [place], [place] [id number] [facility] CARDIOLOGY [facility] Start: 04-27-2020 End: 04-27-2020 Routine 04/27/2020 Routine Perinatology [facility] Start: 04-04-2020 End: 04-04-2020 Office Visit 04/04/2020 Office Visit Cardiology Silvio Gr MD [address] [place] [address] [phone] [facility] CARDIOLOGY [facility] Start: 02-18-2020 End: 02-18-2020 Routine 02/18/2020 Routine Perinatology [facility] Start: 05-24-2019 Influenza vaccination Flu vaccine (#1) [place] Start: 05-29-2018 Chlamydia screen Chlamydia screen [place] Start: 03-26-2018 A1C test (Diabetic or Prediabetic) A1C test (Diabetic or Prediabetic) [place] Start: 03-26-2018 Lipid panel [facility] Start: 03-26-2018 Lipid screen Lipid screen [place], [place] Start: 2015 Screening for malignant neoplasm of cervix Cervical Cancer Screening [facility] Start: 2013 Pneumococcal 0-49 years Vaccine (1 of 2 - PCV) Pneumococcal 0-49 years Vaccine (1 of 2 - PCV) [facility] Start: 2013 Pneumococcal vaccination Pneumococcal Vaccine (1 of 2 - PCV) [facility] Start: 2012 Annual PCP Team Chronic Disease Visit Annual PCP Team Chronic Disease Visit [facility] Start: 2012 Anxiety Screening Anxiety Screening [facility] Start: 2012 BP Controlled (<130/80) BP Controlled (<130/80) [facility] Start: 2012 Depression Screening Depression Screening [facility] Start: 2012 Diabetic microalbuminuria test Diabetic microalbuminuria test [place] Start: 2012 Diabetic retinal exam Diabetic retinal exam [facility] Start: 2012 Glaucoma screening Diabetic retinal exam [facility] Start: 2012 Hepatitis C screening Hepatitis C Screening [facility] Start: 2012 HIV screening HIV Screening [facility] Start: 2012 Spirometry Spirometry [facility] Start: 2012 Urine screening for protein [facility] Start: 2009 HPV vaccine (1 - Female 3-dose series) HPV vaccine (1 - Female 3-dose series) [place] Start: 2006 COVID-19 Vaccine (1) COVID-19 Vaccine (1) [facility] Start: 2006 Depression Screen Depression Screen [facility] Start: 2005 HPV vaccine (1 - 2-dose series) HPV vaccine (1 - 2-dose series) [place] Start: 2005 HPV vaccine (1 - Female 2-dose series) HPV vaccine (1 - Female 2-dose series) [facility] Work Phone: Start: 2004 [object Object] Diabetic foot exam [place] Start: 2004 Diabetic foot examination Diabetic foot exam [facility] Start: 2004 Diabetic retinal exam Diabetic retinal exam [place], [place] Start: 2004 Glaucoma screening Dilated Retinal Exam [facility] Start: 2004 Hepatitis B screening Urine Albumin:Creatinine Ratio [facility] Start: 2000 Pneumococcal 0-64 years Vaccine (1 - PCV) Pneumococcal 0-64 years Vaccine (1 - PCV) [facility] Start: 2000 Pneumococcal 0-64 years Vaccine (1 of 1 - PPSV23) Pneumococcal 0-64 years Vaccine (1 of 1 - PPSV23) [place] Start: 2000 Pneumococcal 0-64 years Vaccine (1 of 2 - PCV) Pneumococcal 0-64 years Vaccine (1 of 2 - PCV) [facility] Start: 2000 Pneumococcal 0-64 years Vaccine (1 of 2 - PPSV23) Pneumococcal 0-64 years Vaccine (1 of 2 - PPSV23) [facility] Start: 1999 COVID-19 Vaccine (1) COVID-19 Vaccine (1) [facility] End: 12-02-2025 [place]ULT [place] [facility] ADULT [place] [facility] Endoscopy Routine Chronic idiopathic constipation 1 Occurrences starting 12/02/2024 until 12/02/2025 [facility] Comment on above: 1 Occurrences starting 12/02/2024 until 12/02/2025 End: 08-05-2020 Anti-Phospholipid Ab Anti-Phospholipid Ab Lab Routine PE (pulmonary thromboembolism) (HCC) Hypercoagulable state (HCC) Smoker 1 Occurrences starting 08/05/2020 until 08/05/2020 [facility] on above: 1 Occurrences starting 08/05/2020 until 08/05/2020 Anti-Phospholipid Ab Anti-Phosph olipid Ab Lab Routine PE (pulmonary thromboembolism) (HCC) Hypercoagulable state (HCC) Smoker 08/05/2020 11:17 AM THU [facility] [place] End: 08-05-2020 Antithrombin III Antigen Antithrombin III Antigen Lab Routine PE (pulmonary thromboembolism) (HCC) Hypercoagulable state (HCC) Smoker 1 Occurrences starting 08/05/2020 until 08/05/2020 [facility] [place] Comment on above: 1 Occurrences starting 08/05/2020 until 08/05/2020 Antithrombin III Antigen Antithr ombin III Antigen Lab Routine PE (pulmonary thromboembolism) (HCC) Hypercoagulable state (HCC) Smoker 08/05/2020 11:17 AM THU [facility] [place] End: 01-10-2020 Bacteria identified Cx Nom (U) Urine Culture Microbiology STAT One Time for 1 Occurrences starting 01/10/2020 until 01/10/2020 [facility] [place] Comment on above: One Time for 1 Occurrences starting 12/22 until 01/10/2020 Bacteria identified Cx Nom (U) [place] End: 02-01-2020 Bacteria identified Cx Nom (U) Urine culture Microbiology Routine One Time for 1 Occurrences starting 02/01/2020 until 02/01/2020 [facility] [place] Comment on above: One Time for 1 Occurrences starting 01/21 until 02/01/2020 End: 02-26-2020 Bacteria identified Cx Nom (U) Urine culture Microbiology Routine One Time for 1 Occurrences starting 02/26/2020 until 02/26/2020 [facility] [place] Comment on above: One Time for 1 Occurrences starting 01/2020 until 02/26/2020 End: 07-28-2019 Bacteria identified Cx Nom (U) Urine Culture Microbiology STAT One Time for 1 Occurrences starting 07/28/2019 until 07/28/2019 [facility] Comment on above: One Time for 1 Occurrences starting 01/2019 until 07/28/2019 End: 07-12-2024 Basic Metabolic Panel w/ Reflex to MG Basic Metabolic Panel w/ Reflex to MG Lab Routine Daily for 5 Days starting 07/08/2024 until 07/12/2024, 1 completed [facility] [employer] Comment on above: Daily for 5 Days starting 07/08/2024 unt il 07/12/2024, 1 completed End: 08-05-2020 Beta-2 Glycoprotein Antibodies Beta-2 Glycoprotein Antibodies Lab Routine PE (pulmonary thromboembolism) (HCC) Hypercoagulable state (HCC) Smoker 1 Occurrences starting 08/05/2020 until 08/05/2020 [facility] Comment on above: 1 Occurrences starting 08/05/2020 until 08/05/2020 Beta-2 Glycoprotein Antibodies Beta-2 Glycoprotein Antibodies Lab Routine PE (pulmonary thromboembolism) (HCC) Hypercoagulable state (HCC) Smoker 08/05/2020 11:17 AM EST [facility] End: 12-05-2021 Blood Gas, Venous Blood Gas, Venous Lab STAT One Time for 1 Occurrences starting 12/05/2021 until 12/05/2021 [employer] Work Phone: Comment on above: One Time for 1 Occurrences starting 11/21 until 12/05/2021 End: 05-16-2020 C.trachomatis N.gonorrhoeae DNA C.trachomatis N.gonorrhoeae DNA Microbiology Routine Once for 1 Occurrences starting 05/16/2020 until 05/16/2020 [facility] Comment on above: Once for 1 Occurrences starting 05/16/20 20 until 05/16/2020 C.trachomatis N.gono rrhoeae DNA C.trachomatis N.gonorrhoeae DNA Microbiology Routine 05/16/2020 9:55 PM EDT [facility] CBC CBC Lab Routine Daily until discontinued starting 06/14/2020, 2 completed [facility] Comment on above: Daily until discontinued starting 2019, 2 completed End: 12-05-2021 CBC W Auto Differential panel - Blood CBC with Auto Differential Lab STAT One Time for 1 Occurrences starting 12/05/2021 until 12/05/2021 [employer] Phone: Comment on above: One Time for 1 Occurrences starting 11/21 until 12/05/2021 End: 10-25-2024 CBC W Auto Differential panel - Blood CBC auto differential Lab Routine Daily for 5 Days starting 10/21/2024 until 10/25/2024, 1 completed [employer] Comment on above: Daily for 5 Days starting 10/21/2024 unt il 10/25/2024, 1 completed End: 11-09-2024 CBC W Auto Differential panel - Blood CBC auto differential Lab Routine Daily for 5 Days starting 11/05/2024 until 11/09/2024, 2 completed [employer] Comment on above: Daily for 5 Days starting 11/05/2024 unt il 11/09/2024, 2 completed End: 12-05-2021 Comprehensive Metabolic Panel w/ Reflex to MG Comprehensive Metabolic Panel w/ Reflex to MG Lab STAT One Time for 1 Occurrences starting 12/05/2021 until 12/05/2021 [employer] Phone: Comment on above: One Time for 1 Occurrences starting 11/21 until 12/05/2021 End: 10-25-2024 Comprehensive Metabolic Panel w/ Reflex to MG Comprehensive Metabolic Panel w/ Reflex to MG Lab Routine Daily for 5 Days starting 10/21/2024 until 10/25/2024, 1 completed [employer] Comment on above: Daily for 5 Days starting 10/21/2024 unt il 10/25/2024, 1 completed End: 11-09-2024 Comprehensive Metabolic Panel w/ Reflex to MG Comprehensive Metabolic Panel w/ Reflex to MG Lab Routine Daily for 5 Days starting 11/05/2024 until 11/09/2024, 2 completed [employer] Comment on above: Daily for 5 Days starting 11/05/2024 unt il 11/09/2024, 2 completed End: 05-22-2021 COVID-19 COVID-19 Lab Routine Preop testing 1 Occurrences starting 05/22/2021 until 05/22/2021 [employer] Phone: Comment on above: 1 Occurrences starting 05/22/2021 until 05/22/2021 COVID-19 COVID-19 Lab Rou amanda Preop testing 05/22/2021 8:39 AM [facility] [employer] Phone: End: 05-16-2020 Culture, Strep B Screen, Vaginal/Rectal Culture, Strep B Screen, Vaginal/Rectal Microbiology Routine Once for 1 Occurrences starting 05/16/2020 until 05/16/2020 [facility] Comment on above: Once for 1 Occurrences starting 05/16/20 20 until 05/16/2020 Culture, Strep B Scr een, Vaginal/Rectal Culture, Strep B Screen, Vaginal/Rectal Microbiology Routine 05/16/2020 9:55 PM EDT [facility] End: 03-29-2020 Culture, Urine Culture, Urine Microbiology Routine One Time for 1 Occurrences starting 03/29/2020 until 03/29/2020 [facility] [place] Comment on above: One Time for 1 Occurrences starting 03/2020 until 03/29/2020 End: 09-24-2020 Culture, Urine Culture, Urine Microbiology STAT One Time for 1 Occurrences starting 09/24/2020 until 09/24/2020 [facility] [place] Comment on above: One Time for 1 Occurrences starting 10/2020 until 09/24/2020 End: 11-23-2023 Culture, Urine [facility] [employer] [employer] Comment on above: One Time for 1 Occurrences starting 10/2023 until 11/23/2023 End: 11-28-2020 Culture, Wound Culture, Wound Microbiology Routine One Time for 1 Occurrences starting 11/28/2020 until 11/28/2020 [employer] Phone: Comment on above: One Time for 1 Occurrences starting 04/2021 until 11/28/2020 End: 12-15-2025 EGD - THERAPEUTIC, EUS, OR TUBE INTERVENTIONS EGD - THERAPEUTIC, EUS, OR TUBE INTERVENTIONS Endoscopy Routine Gastroparesis 1 Occurrences starting 12/15/2024 until 12/15/2025 [facility] Work Phone: Comment on above: 1 Occurrences starting 12/15/2024 until 12/15/2025 EKG 12 Lead EKG 12 Lead ECG STAT 05/25/2019 8:08 PM EDT [facility] [place] EKG 12 Lead EKG 12 Lead ECG STAT 12/24/2022 3:23 PM EDT [facility] Work Phone: EKG 12 Lead EKG 12 Lead ECG STAT 01/30/2024 5:57 PM EDT [facility] EKG 12 Lead EKG 12 Lead ECG STAT 02/09/2025 7:57 PM EDT [facility] Electrogastrography dx transcut w/provoctve tstg EGG (ELECTROGASTROGRAPHY) Procedures Routine Gastroparesis Ordered: 09/24/2024 [facility] Work Phone: Comment on above: Ordered: 09/24/2024 End: 06-14-2020 Factor 5 Leiden Factor 5 Leiden Lab Routine One Time for 1 Occurrences starting 06/14/2020 until 06/14/2020 [facility] [place] Comment on above: One Time for 1 Occurrences starting 05/25 until 06/14/2020 End: 08-05-2020 Factor 8 Assay Factor 8 Assay Lab Routine PE (pulmonary thromboembolism) (HCC) Hypercoagulable state (HCC) Smoker 1 Occurrences starting 08/05/2020 until 08/05/2020 [facility] [place] Comment on above: 1 Occurrences starting 08/05/2020 until 08/05/2020 Factor 8 Assay Factor 8 Assay L ab Routine PE (pulmonary thromboembolism) (HCC) Hypercoagulable state (HCC) Smoker 08/05/2020 11:17 AM EST [facility] [place] End: 06-15-2020 Factor V Leiden Mutation Factor V Leiden Mutation Lab Routine Once for 1 Occurrences starting 06/15/2020 until 06/15/2020 [facility] [place] Comment on above: Once for 1 Occurrences starting 06/15/20 20 until 06/15/2020 nonstress test [facility] [place] Comment on above: Daily until discontinued starting 2019 Daily until disconti nued starting 04/08/2020 Daily until disconti nued starting 04/30/2020 End: 05-24-2020 Fructosamine Fructosamine Lab Routine One Time for 1 Occurrences starting 05/24/2020 until 05/24/2020 [place] Comment on above: One Time for 1 Occurrences starting 09/2019 until 05/24/2020 Fructosamine Fructosamine Lab [employer] Label Print 05/24/2020 6:00 AM [place], [place] Glucose [Mass/volume ] in Serum or Plasma [facility] [employer] Comment on above: 4X Daily (AC & HS) until discontinued st arting 07/07/2024 As Needed until disc ontinued starting 07/07/2024 Glucose [Mass/volume ] in Serum or Plasma [facility] [employer] Comment on above: 4X Daily (AC & HS) until discontinued st arting 10/20/2024 As Needed until disc ontinued starting 10/20/2024 Glucose [Mass/volume ] in Serum or Plasma POCT glucose Point of Care Testing Routine 4X Daily (AC & HS) until discontinued starting 11/05/2024 [employer] Comment on above: 4X Daily (AC & HS) until discontinued st arting 11/05/2024 End: 05-24-2020 HbA1c (Bld) [Mass fraction] Hemoglobin A1c Lab Routine One Time for 1 Occurrences starting 05/24/2020 until 05/24/2020 [place] Comment on above: One Time for 1 Occurrences starting 09/2019 until 05/24/2020 HbA1c (Bld) [Mass fraction] Hemo globin A1c Lab [employer] Label Print 05/24/2020 6:00 AM [place] End: 11-12-2022 INITIATE PACU OXYGEN THERAPY PROTOCOL Initiate PACU Oxygen Therapy Protocol Respiratory Care Routine Continuous until discontinued starting 11/12/2022 [employer] Work Phone: Comment on above: Continuous until discontinued starting 0 11/12/2022 End: 10-25-2024 Lipase [Enzymatic activity/volume] in Serum or Plasma Lipase Lab Routine Daily for 5 Days starting 10/21/2024 until 10/25/2024, 1 completed [employer] Comment on above: Daily for 5 Days starting 10/21/2024 unt il 10/25/2024, 1 completed End: 11-07-2024 Lipase [Enzymatic activity/volume] in Serum or Plasma Lipase Lab Routine Daily for 3 Days starting 11/05/2024 until 11/07/2024, [address] [facility] [employer] Comment on above: Daily for 3 Days starting 11/05/2024 unt il 11/07/2024, 2 completed End: 04-21-2024 Microalbumin, [facility] Work [facility]: Comment on above: Once for 1 Occurrences starting 04/21/20 24 until 04/21/2024 End: 08-05-2020 MTHFR Mutation MTHFR Mutation Lab Routine PE (pulmonary thromboembolism) (HCC) Hypercoagulable state (HCC) Smoker 1 Occurrences starting 08/05/2020 until 08/05/2020 [place] Comment on above: 1 Occurrences starting 08/05/2020 until 08/05/2020 MTHFR Mutation MTHFR Mutation L ab Routine PE (pulmonary thromboembolism) (HCC) Hypercoagulable state (HCC) Smoker 08/05/2020 11:17 AM EST [place] Nonrebreather mask oxygen [place], [place] Comment on above: As directed - RT (PRN) until discontinue d starting 02/26/2020 As directed - RT (KS N) until discontinued starting 04/07/2020 As directed - RT (KS N) until discontinued starting 05/22/2020 As directed - RT (KS N) until discontinued starting 04/29/2020 Oxygen therapy [Mini mum Data Set] [place] Comment on above: Daily until discontinued starting 2019 Daily until disconti nued starting 06/13/2020 Daily until disconti nued starting 03/20/2021 Oxygen therapy [Mini mum Data Set] Initiate Oxygen Therapy Protocol Respiratory Care Routine As Needed until discontinued starting 11/12/2022 [facility] [employer] Work Phone: Comment on above: As Needed until discontinued starting Oxygen therapy [Mini mum Data Set] Initiate Oxygen Therapy Protocol Respiratory Care Routine Daily until discontinued starting 07/07/2024 [facility] [employer] Comment on above: Daily until discontinued starting 2023 Oxygen therapy [Mini mum Data Set] Initiate Oxygen Therapy Protocol Respiratory Care Routine Daily until discontinued starting 10/20/2024 [employer] Comment on above: Daily until discontinued starting 2024 Oxygen therapy [[facility] Data Set] Initiate Oxygen Therapy Protocol Respiratory Care Routine Daily until discontinued starting 11/05/2024 [facility] [employer] Comment on above: Daily until discontinued starting 2024 End: 06-13-2020 Path Review, Smear Path Review, Smear Lab Routine Once for 1 Occurrences starting 06/13/2020 until 06/13/2020 [facility] Comment on above: Once for 1 Occurrences starting 06/13/20 20 until 06/13/2020 Path Review, Smear Path Review, Smear Lab Routine 06/13/2020 8:18 PM EDT [facility] [place] End: 03-29-2020 POCT glucose POCT glucose Point of Care Testing Routine One Time for 1 Occurrences starting 03/29/2020 until 03/29/2020 [facility] [employer] [place] Comment on above: One Time for 1 Occurrences starting 03/2020 until 03/29/2020 POCT Glucose [facility] [employer] [place] Comment on above: TID PC until discontinued starting 05/23 As Needed until disc ontinued starting 03/20/2021 End: 09-24-2020 , Urine , Urine Lab STAT One Time for 1 Occurrences starting 09/24/2020 until 09/24/2020 [facility] [employer] [place] Comment on above: One Time for 1 Occurrences starting 10/2020 until 09/24/2020 End: 12-05-2021 , Urine , Urine Lab STAT One Time for 1 Occurrences starting 12/05/2021 until 12/05/2021 [employer] Work Phone: Comment on above: One Time for 1 Occurrences starting 11/21 until 12/05/2021 End: 06-22-2025 , Urine , Urine Lab STAT One Time for 1 Occurrences starting 06/22/2025 until 06/22/2025 [employer] Comment on above: One Time for 1 Occurrences starting 05/26 until 06/22/2025 End: 08-05-2020 Protein C Functional Protein C Functional Lab Routine PE (pulmonary thromboembolism) (HCC) Hypercoagulable state (HCC) Smoker 1 Occurrences starting 08/05/2020 until 08/05/2020 [place] Comment on above: 1 Occurrences starting 08/05/2020 until 08/05/2020 Protein C Functional Protein C F unctional Lab Routine PE (pulmonary thromboembolism) (HCC) Hypercoagulable state (HCC) Smoker 08/05/2020 11:17 AM [place] End: 08-05-2020 Protein S Functional Protein S Functional Lab Routine PE (pulmonary thromboembolism) (HCC) Hypercoagulable state (HCC) Smoker 1 Occurrences starting 08/05/2020 until 08/05/2020 [place] Comment on above: 1 Occurrences starting 08/05/2020 until 08/05/2020 Protein S Functional Protein S F unctional Lab Routine PE (pulmonary thromboembolism) (HCC) Hypercoagulable state (HCC) Smoker 08/05/2020 11:17 AM [place] End: 08-05-2020 Prothrombin Gene Mutation Prothrombin Gene Mutation Lab Routine PE (pulmonary thromboembolism) (HCC) Hypercoagulable state (HCC) Smoker 1 Occurrences starting 08/05/2020 until 08/05/2020 [place] Comment on above: 1 Occurrences starting 08/05/2020 until 08/05/2020 Prothrombin Gene Mutation Prothr ombin Gene Mutation Lab Routine PE (pulmonary thromboembolism) (HCC) Hypercoagulable state (HCC) Smoker 08/05/2020 11:17 AM [place] End: 05-22-2020 RHOGAM RHOGAM Blood Bank Routine One Time for 1 Occurrences starting 05/22/2020 until 05/22/2020 [place] Comment on above: One Time for 1 Occurrences starting 04/25 until 05/22/2020 Spirometry panel Incentive ezekiel metry Respiratory Care Routine Every 2hr while awake until discontinued starting 05/22/2020 [place] Comment on above: Every 2hr while awake until discontinued starting 05/22/2020 [facility] [place] Comment on above: Release Upon Ordering for 1 Occurrences starting 05/22/2020 Release Upon Orderin g for 1 Occurrences starting 03/20/2021 Surgical Pathology Surgical Path ology Lab Routine Dysmenorrhea Release Upon Ordering for 1 Occurrences starting 11/12/2022 [facility] Work Phone: Comment on above: Release Upon Ordering for 1 Occurrences starting 11/12/2022 End: 02-26-2020 SVE SVE Point of Care Testing Routine One Time for 1 Occurrences starting 02/26/2020 until 02/26/2020 [facility] Comment on above: One Time for 1 Occurrences starting 01/2020 until 02/26/2020 End: 04-07-2020 SVE SVE Point of Care Testing Routine One Time for 1 Occurrences starting 04/07/2020 until 04/07/2020 [facility] Comment on above: One Time for 1 Occurrences starting 03/23 until 04/07/2020 End: 04-29-2020 SVE SVE Point of Care Testing Routine One Time for 1 Occurrences starting 04/29/2020 until 04/29/2020 [facility] Comment on above: One Time for 1 Occurrences starting 03/2020 until 04/29/2020 End: 05-16-2020 Trichomonas Vaginali, Molecular Trichomonas Vaginali, Molecular Microbiology Routine Once for 1 Occurrences starting 05/16/2020 until 05/16/2020 [facility] Comment on above: Once for 1 Occurrences starting 05/16/20 20 until 05/16/2020 Trichomonas Vaginali , Molecular Trichomonas Vaginali, Molecular Microbiology Routine 05/16/2020 10:07 PM EDT [facility] End: 02-01-2020 Urinalysis Urinalysis Lab Routine One Time for 1 Occurrences starting 02/01/2020 until 02/01/2020 [facility] [place] Comment on above: One Time for 1 Occurrences starting 01/21 until 02/01/2020 End: 12-05-2021 Urinalysis with Microscopic Urinalysis with Microscopic Lab STAT One Time for 1 Occurrences starting 12/05/2021 until 12/05/2021 [facility] Comment on above: One Time for 1 Occurrences starting 11/21 until 12/05/2021 End: 06-22-2025 Urinalysis with Microscopic Urinalysis with Microscopic Lab STAT One Time for 1 Occurrences starting 06/22/2025 until 06/22/2025 Radha Schwartz [facility] Comment on above: One Time for 1 Occurrences starting 05/26 until 06/22/2025 End: 09-24-2020 Urinalysis, reflex to microscopic Urinalysis, reflex to microscopic Lab STAT One Time for 1 Occurrences starting 09/24/2020 until 09/24/2020 [facility] Comment on above: One Time for 1 Occurrences starting 10/2020 until 09/24/2020 End: 02-01-2020 US GALLBLADDER RUQ US GALLBLADDER RUQ Imaging Routine Once for 1 Occurrences starting 02/01/2020 until 02/01/2020 [facility] Comment on above: Once for 1 Occurrences starting 02/01/20 until 02/01/2020 US NON OB TRANSVAGINAL US NON OB TRANSVAGINAL Imaging STAT 11/01/2022 4:18 PM EST [facility] Work Phone: End: 02-01-2020 US OB 14 PLUS WEEKS SINGLE OR FIRST GESTATION US OB 14 PLUS WEEKS SINGLE OR FIRST GESTATION Imaging STAT Once for 1 Occurrences starting 02/01/2020 until 02/01/2020 [facility] Comment on above: Once for 1 Occurrences starting 02/01/20 until 02/01/2020 US OB 14 PLUS WEEKS SINGLE OR FIRST GESTATION US OB 14 PLUS WEEKS SINGLE OR FIRST GESTATION Imaging STAT 02/01/2020 9:25 PM EDT [facility] End: 06-22-2025 XR Abdomen Single view [facility] Comment on above: Once for 1 Occurrences starting 06/22/20 until 06/22/2025 Immunizations Immunization Date Immunization Notes Care Provider Khalif anand 03-21-2022 SARS-CoV-2 mRNA (vlgrvflqncz-azhw-thmj ose) vaccine Yajaira [facility] 08-13-2021 SARS-CoV-2 (COVID-19 ) mRNA BNT-162b2 vax Yajaira [facility] 07-18-2021 SARS-CoV-2 (COVID-19 ) mRNA BNT-162b2 vax Yajaira [facility] 05-24-2020 tetanus toxoid, reduced diphtheria toxoid, and acellular pertussis vaccine, adsorbed [facility] Comment on above: Result Comment: 2023: VIS DATE: 12/23/2019 05-22-2020 diphtheria, tetanus toxoids and acellular pertussis vaccine, unspecified formulation [facility], [place] 05-22-2020 measles, mumps and rubella virus vaccine [facility], [place] 10-21-2017 tetanus toxoid, reduced diphtheria toxoid, and acellular pertussis vaccine, adsorbed [facility] Comment on above: Result Comment: 2023: VIS DATE: 11/16/2014 03-24-2016 measles, mumps and rubella virus vaccine [facility] 07-09-2011 meningococcal ACWY vaccine, unspecified formulation Lu Sarmini [facility] 07-09-2011 tetanus toxoid, reduced diphtheria toxoid, and acellular pertussis vaccine, adsorbed Lu Sarmini [facility] 07-28-2001 hepatitis B vaccine, pediatric or pediatric/adolescent dosage Lu Sarmini [facility] 06-29-1999 DTaP, unspecified formulation Lu Sarmini [facility] 06-29-1999 measles, mumps and rubella virus vaccine Lu Sarmini [facility] 06-29-1999 poliovirus vaccine, unspecified formulation Lu Sarmini [facility] 06-29-1999 varicella virus vaccine Lu Sarmini [facility] 02-05-1996 DTaP, unspecified formulation Lu Sarmini [facility] 01-26-1996 poliovirus vaccine, unspecified formulation Lu Sarmini [facility] 01-26-1996 varicella virus vaccine Lu Sarmini [facility] 11-05-1995 measles, mumps and rubella virus vaccine Lu Sarmini [facility] 08-01-1995 poliovirus vaccine, unspecified formulation Lu Sarmini [facility] 04-29-1995 hepatitis B vaccine, pediatric or pediatric/adolescent dosage Lu Sarmini [facility] 01-28-1995 DTaP, unspecified formulation Lu Sarmini [facility] 1994 DTaP, unspecified formulation Lu Sarmini [facility] 1994 DTaP, unspecified formulation Lu Sarmini [facility] 1994 poliovirus vaccine, unspecified formulation Lu Sarmini [facility] 1994 hepatitis B vaccine, pediatric or pediatric/adolescent dosage Lu Sarmini [facility] 1994 hepatitis B vaccine, pediatric or pediatric/adolescent dosage Lu Sarmini [facility] NEGATED: Highlighted row has not occurred!10-13-2024 influenza virus vaccine, unspecified formulation Lu Sarmini [facility] Payers Date Payer Category Payer Unknown 08-23-2020 Medicaid [id number] 08-23-2020 Medicaid (Managed Care) [facility] MEDICAID [id number] 09-23-2019 Private Health Insurance [facility] PLU [id number] 09/23/2019-Present [phone] [address] [place] [address] [id number] 09-23-2019 Private Health Insurance [facility] PLU [id number] 09/23/2019-Present [phone] [address] [place] [address] [id number] 05-24-2016 Unknown [facility] HEALTH PLAN [facility] HEALTH PLAN xxxxxxxxxxxx 2016-Present [phone] [place] [address] xxxxxxxxxxxx [id number] 05-24-2016 Unknown [facility] HEALTH PLAN [facility] HEALTH PLAN [id number] 05/24/2016-Present [phone] [place] [address] [id number] [id number] .[id number] 09-23-2015 Private Health Insurance xxxxxxxxx [id number] .[id number] 1994 Unknown [id number] 2.16.840.1.202630.3.579.2 .593 1994 Unknown [id number] 2.16.840.1.686077.3.579.2 .593 1994 Unknown [id number] 2.16.840.1.566727.3.579.2 .593 1994 Unknown [id number] 2.16.840.1.105625.3.579.2 .196 1994 Unknown [id number] 2.16.840.1.140530.3.579.2 .196 1994 Unknown [id number] 2.16.840.1.735504.3.579.2 .196 1994 Unknown [id number] 2.16.840.1.527605.3.579.2 .196 1994 Unknown [id number] 2.16.840.1.245143.3.579.2 .196 1994 Unknown [id number] 2.16.840.1.537148.3.579.2 .196 1994 Unknown [id number] 2.16.840.1.033926.3.579.2 .196 1994 Unknown [id number] 2.16.840.1.788215.3.579.2 .196 1994 Unknown [id number] 2.16.840.1.646961.3.579.2 .196 1994 Unknown [id number] 2.16.840.1.622248.3.579.2 .196 1994 Unknown [id number] 2.16.840.1.829399.3.579.2 .196 1994 Unknown [id number] 2.16.840.1.968048.3.579.2 .727 1994 Unknown [id number] 2.16.840.1.009704.3.579.2 .1994 Unknown [id number] 2.16.840.1.421762.3.579.2 1994 Unknown [id number] 2.16.840.1.776010.3.579.2 .1994 Unknown [id number] 2.16.840.1.881068.3.579.2 1994 Unknown [id number] 2.16.840.1.523865.3.579.2 1994 Unknown [id number] 2.16.840.1.218217.3.579.2 1994 Unknown [id number] 2.16.840.1.522283.3.579.2 1994 Unknown [id number] 2.16.840.1.259382.3.579.2 1994 Unknown [id number] 2.16.840.1.704568.3.579.2 1994 Unknown [id number] 2.16.840.1.297200.3.579.2 1994 Unknown [id number] 2.16.840.1.407324.3.579.2 1994 Unknown [id number] 2.16.840.1.929872.3.579.2 1994 Unknown [id number] 2.16.840.1.865706.3.579.2 1994 Unknown [id number] 2.16.840.1.811341.3.579.2 1994 Unknown [id number] 2.16.840.1.608049.3.579.2 1994 Unknown [id number] 2.16.840.1.604224.3.579.2 1994 Unknown [id number] 2.16.840.1.183772.3.579.2 1994 Unknown [id number] 2.16.840.1.019393.3.579.2 1994 Unknown [id number] 2.16.840.1.238325.3.579.2 1994 Unknown [id number] 2.16.840.1.930042.3.579.2 1994 Unknown [id number] 2.16.840.1.436728.3.579.2 1994 Unknown [id number] 2.16.840.1.394195.3.579.2 1994 Unknown [id number] 2.16.840.1.104528.3.579.2 1994 Unknown [id number] 2.16840.1.517856.3.579.2 1994 Unknown [id number] 2.16.840.1.695058.3.579.2 1994 Unknown [id number] 2.16.840.1.099784.3.579.2 1994 Unknown [id number] 2.16.840.1.422013.3.579.2 1994 Unknown [id number] 2.16.840.1.477653.3.579.2 1994 Unknown [id number] 2.16.840.1.450860.3.579.2 1994 Unknown [id number] 2.16.840.1.215449.3.579.2 1994 Unknown [id number] 2.16.840.1.178734.3.579.2 1994 Unknown [id number] 2.16.840.1.963357.3.579.2 1994 Unknown [id number] 2.16.840.1.635647.3.579.2 .1994 Unknown [id number] 2.16.840.1.192851.3.579.2 .1994 Unknown [id number] 2.16.840.1.391381.3.579.2 .1258 1994 Unknown [id number] 2.16.840.1.460871.3.579.2 .1258 1994 Unknown [id number] 2.16.840.1.640999.3.579.2 .1258 1994 Unknown [id number] 2.16.840.1.571138.3.579.2 .1258 1994 Unknown [id number] 2.16.840.1.214332.3.579.2 .1258 1994 Unknown [id number] 2.16.840.1.589149.3.579.2 .1258 1994 Unknown [id number] 2.16.840.1.366589.3.579.2 1994 Unknown [id number] 2.16.840.1.511597.3.579.2 .1994 Unknown [id number] 2.16.840.1.724137.3.579.2 .1994 Unknown [id number] 2.16.840.1.865977.3.579.2 .1994 Unknown [id number] 2.16.840.1.537923.3.579.2 .1994 Unknown [id number] 2.16.840.1.072540.3.579.2 1994 Unknown [id number] 2.16.840.1.841191.3.579.2 1994 Unknown [id number] 2.16.840.1.497862.3.579.2 1994 Unknown [id number] 2.16.840.1.659374.3.579.2 .175 1994 Unknown [id number] 2.16.840.1.258454.3.579.2 .175 1994 Unknown [id number] 2.16.840.1.276413.3.579.2 .196 1994 Unknown [id number] 2.16.840.1.564765.3.579.2 .196 1994 Unknown [id number] 2.16.840.1.341439.3.579.2 .196 1994 Unknown [id number] 2.16.840.1.996330.3.579.2 .196 1994 Unknown [id number] 2.16.840.1.931461.3.579.2 .196 1994 Unknown [id number] 2.16.840.1.604750.3.579.2 .196 1994 Unknown [id number] 2.16.840.1.151915.3.579.2 .196 1994 Unknown [id number] 2.16.840.1.828277.3.579.2 .196 1994 Unknown [id number] 2.16.840.1.328435.3.579.2 .196 1994 Unknown [id number] 2.16.840.1.293520.3.579.2 .196 1994 Unknown [id number] 2.16.840.1.549760.3.579.2 .196 1994 Unknown [id number] 2.16.840.1.888627.3.579.2 .196 1994 Unknown [id number] 2.16.840.1.689879.3.579.2 .196 1994 Unknown [id number] 2.16.840.1.175570.3.579.2 .173 1994 Unknown [id number] 2.16.840.1.276830.3.579.2 .173 1994 Unknown [id number] 2.16.840.1.400987.3.579.2 .173 1994 Unknown [id number] 2.16.840.1.360971.3.579.2 .173 1994 Unknown [id number] 2.16.840.1.942784.3.579.2 .173 1994 Unknown [id number] 2.16.840.1.882403.3.579.2 .173 1994 Unknown [id number] 2.16.840.1.763761.3.579.2 .173 1994 Unknown [id number] 2.16.840.1.694163.3.579.2 .173 1994 Unknown [id number] 2.16.840.1.886924.3.579.2 .173 1994 Unknown [id number] 2.16.840.1.792220.3.579.2 .173 1994 Unknown [id number] 2.16.840.1.302487.3.579.2 .173 1994 Unknown [id number] 2.16.840.1.905581.3.579.2 .173 1994 Unknown [id number] 2.16.840.1.987644.3.579.2 .173 1994 Unknown [id number] 2.16.840.1.845460.3.579.2 .173 1994 Unknown [id number] 2.16.840.1.317079.3.579.2 .173 09-23-1960 Unknown [id number] 1.2.840.868953.1.13.239.2 .7.3.037659.315 Social History Date Type Detail Facility Start: 05-19-2019 End: 12-24-2023 Tobacco smoking status RIIS Current every day smoker [place] History of tobacco use Cigarette Sm[place] Start: 05-19-2019 End: 06-22-2025 Cigarettes smoked current (pack per day) - Reported [place] Start: 05-19-2019 End: 06-22-2025 Alcohol intake No [facility] Start: 05-13-2017 Tobacco Comment Trying to quit-patient refuses referral wants to quit on own [place] Start: 03-10-2017 Alcohol Comment socially [place] Start: 1995 Sex Assigned At Not on file [place] Start: 01-10-2020 End: 03-23-2023 Alcohol intake Current non-drinker of alcohol (finding) [place] Start: 09-16-2019 [place] Exposure to SARS-CoV -2 (event) Unable to assess [place] Start: 02-18-2020 End: 07-31-2022 Tobacco Comment 4-5cigs/day 02/18/2020 [place] Start: 04-04-2020 End: 12-24-2023 Tobacco use and exposure Never used [place] Start: 11-05-2021 End: 12-24-2022 Exposure to SARS-CoV-2 (event) Not sure [place] Start: 1995 Sex Assigned At Female [facility] [employer] Phone: Exposure to SARS-CoV -2 (event) Yes [facility] [employer] Start: 10-05-2022 End: 02-18-2023 History SDOH Alcohol Frequency 1 [facility] [employer] Work Phone: Start: 10-05-2022 End: 02-18-2023 History SDOH Alcohol Std Drinks 0 [facility] [employer] Phone: Tobacco smoking status [facility] [place] Start: 12-04-2022 End: 10-13-2024 Tobacco smoking status Heavy tobacco smoker (finding) General Surgery Will Tobacco smoking status Never Gener al Surgery Will Start: 08-03-2023 End: 09-17-2023 Alcohol intake Current drinker of alcohol (finding) [employer] How often to you hav e a drink containing alcohol? Never [employer] Start: 03-16-2021 Gender identity Identifies as female gender (finding) [employer] Start: 03-16-2021 Sexual orientation Heterosexual (finding) [employer] Has the electric, [employer], oil, or water company threatened to shut off services in your home in past 12Mo No [employer] How often to you hav e a drink containing alcohol? Monthly or less [employer] How many standard drinks containing alcohol do you have on a typical day? 1 or 2 [employer] (I/We) worried yoko er (my/our) food would run out before (I/we) got money to buy more. Never true [employer] Are you now , , , , [...] [OSQ] Rather much [facility] Start: *Tobacco [place] [employer] [facility] Start: 10-20-2024 End: 06-22-2025 Alcoholic beverage intake Ex-drinker (finding) [employer] Start: 12-24-2024 End: 02-17-2025 Alcoholic beverage intake Lifetime non-drinker (finding) [facility] Start: 12-24-2024 Tobacco Comment 1/2 ppd [facility] Start: 11-02-2012 Sex Female (finding) [employer] Medical Equipment Procedure Code Equipment Code Equipment Origin al Text Equipment Identifier Dates [id number] Start: 10-10-2017 End: 05-25-2019 use 1 TEST STRIP to TEST BLOOD SUGAR four times a day [id number] Start: 11-27-2019 End: 05-24-2020 use 1 LANCET to TEST BLOOD SUGAR four times a day [id number] Start: 11-27-2019 End: 05-24-2020 USE 1 THREE TIME S DAILY [id number] Start: 01-12-2020 End: 05-24-2020 TRUE [employer] BLOO D GLUCOSE TEST strip [id number] Start: 01-20-2022 1 each by Does n ot apply route daily [id number] Start: 04-09-2024 1 each by In Vit ro route in the morning and 1 each in the evening and 1 each before bedtime. [id number] Start: 04-07-2024 Goals Date Patient Goal Desired Activity /State Personal health goal Functional Status Date Assessment Result Facility 01-26-2025 Functional Status N/A [facility] 10-15-2024 Functional Status N/A [facility] 10-13-2024 Functional Status N/A [facility] 10-08-2024 Functional Status N/A [facility] 10-06-2024 Functional Status N/A [facility] 10-04-2024 Functional Status N/A [facility] 09-30-2024 Functional Status N/A [facility] 09-10-2024 Functional Status N/A [facility] 08-24-2024 Functional Status N/A [facility] 08-13-2024 Functional Status N/A [facility] 08-13-2024 Functional Status [facility] 08-10-2024 Functional Status N/A [facility] 08-07-2024 Functional Status N/A [facility] 08-06-2024 Functional Status N/A [facility] 07-29-2024 Functional Status N/A [facility] 07-05-2024 Functional Status N/A [facility] 06-20-2024 Functional Status N/A [facility] 06-09-2024 Functional Status N/A [facility] 06-01-2024 Functional Status N/A [facility] 05-23-2024 Functional Status N/A [facility] 05-22-2024 Functional Status [facility] 12-04-2022 Functional Status N/A [facility] mickie [facility] Clinical Notes 03-20-2021 to 06-22-2025 Discharge InstructionsDischarge InstructionsAttachmentsTelephone Encounter - Dixie Grimaldo RN - 04/23/2025 8:51 AM EDTTelephone Encounter - Dixie Grimaldo RN - 04/23/2025 8:51 AM EDT Note Date & Type Note Facility 06-22-2025 Hospital Discharg e instructions Michael Solo MD - 06/22/2025 7:32 PM EDT Continue your regular bowel regime from your GI doctor. Please call to discuss your ED visit with the GI doctor to determine if any change to medications need to be made. Miralax can be taken 2-3 times/day to achieve BM, then decrease to once daily. Return to ED if recurrence of abdominal pain, inability tolerate oral intake or other acute concern. documented in this encounter [facility] 06-22-2025 [facility] Discharg e instructions Darryl Ragsdale MD - 06/22/2025 10:41 AM EDT Drink magnesium citrate when you get home. About 20 to 30 minutes after drink at least 20 ounces of water. Make sure that you stay well-hydrated throughout the day. Follow-up with your primary care provider in 3 days if symptoms have not resolved. Please seek medical attention immediately for any worsening symptoms or any acute concern The following attachments cannot be sent through Care Everywhere.Constipation ([place])Gastroparesis ([place])documented in this encounter [facility] 04-23-2025 Telephone encounter Note Prior Authorization initiated thru Aspn Portal /[place] Code: [id number] Awaiting response Insurance: [facility] Medicaid ID: [id number] RxBIN: [id number] RxPCN:[id number] RxGroup: Tried and failed Patient has been being treated with Gimoti/Metoclopramide Nasal [place] since 12/02/2024 and it works best for her plan of care. Spoke with patient (identified by two identifiers), tried/failed/ineffective: Dulcolax/Bisacodyl, OTC, 09/23/2024-current Miralax/Polyethylene Glycol 08/13/2024-current Colace/Docusate Sodium, OTC, 04/23/2025-current Reglan/Metoclopramide 10 mg tablet 05/20/2024-12/15/2024 [facility] 04-23-2025 Miscellaneous Notes Prior Authorization initiated thru [employer] /[place] Code: H9VFES Awaiting response Insurance: [employer] Medicaid ID: [id number] RxBIN: [id number] RxPCN:[id number] RxGroup: Tried and failed Patient has been being treated with Gimoti/Metoclopramide Nasal [place] since 12/02/2024 and it works best for her plan of care. Spoke with patient (identified by two identifiers), tried/failed/ineffective: Dulcolax/Bisacodyl, OTC, 09/23/2024-current Miralax/Polyethylene Glycol 08/13/2024-current Colace/Docusate Sodium, OTC, 04/23/2025-current Reglan/Metoclopramide 10 mg tablet 05/20/2024-12/15/2024 documented in this encounter [facility] 03-24-2025 Telephone encounter Note Fax number to have GES order sent is [phone]. [facility] Work Phone: 03-24-2025 Miscellaneous Notes Fax number to have GES order sent is [phone]. documented in this encounter [facility] 02-17-2025 Note HNO ID: [id number] Author: BEST REYNOSO MD Service: ? Author Type: Anesthesiologist Type: Progress Notes Filed: 02/17/2025 13:58 Note Text: Referring Or Consulting Physician: Yajaira Lackey [facility] [address] [place] [address] CHIEF COMPLAINT: pain in my upper abdomen [...] (GIMOTI) 15 mg/spray nasal spray Use 1 [place] in the nose four times daily. No [...] depression, (15-19) moderately (more content not included)... [facility] 02-17-2025 History of Presen t illness Narrative Images from the original note were not included. Referring Or Consulting Physician: Yajaira Lackey [facility] [address] [facility] [address] CHIEF COMPLAINT: pain in my upper abdomen [...] (GIMOTI) 15 mg/spray nasal spray Use 1 [place] in the nose four times daily. No [...] and failed gabapentin due to severe somnolence ([facility]) last hba1c 7.9 ----> DM2 Rx changes [...] which included: *preparing to see the patient *jxto-ea-liae patient care *completing clinical documentation *obtaining and/or [...] February 17, 2025 documented in this encounter [facility] 02-12-2025 Note HNO ID: [id number] Author: RONALDO SÁNCHEZ, DO Service: ? Author Type: Physician Type: Progress Notes Filed: 02/12/2025 16:30 Note Text: Digestive Disease AND Surgery [place] Post-Operative Virtual Visit This encounter was provided via two-way, live video teleconferencing within the guidelines of state licensure rules for new and established patients. I have communicated my name and active licensure. The patient's identity and physical location were verified at the time of this visit. Either the patient or their legal sales promotion representative has been informed of the risks and benefits of -- and alternatives to -- treatment through a remote evaluation and consents to proceed with the evaluation remotely. Technical difficulties were not encountered. 15 minutes were spent on the teleconference with the patient. An additional 10 minutes was required for chart review/preparation, documentation, orders, and care coordination. Recording using [employer] software for draft documentation of the visit was discussed with the patient/authorized sales promotion representative; all questions welcomed and answered. Patient/authorized sales promotion representative agreed to proceed PATIENT NAME: Gael [...] gastroparesis symptoms. - Advised patient to contact vacuum pan tender to adjust Lantus dosage or other medications [...] from a l (more content not included)... [facility] 02-09-2025 [facility] Discharg e instructions Maria A Polanco APRN - CNP - 02/09/2025 8:55 PM EDT Continue your home medications for management of gastroparesis. Avoid marijuana as this may worsen the symptoms. Please call your GI doctor at [facility] to see if they can see you before your visit with [facility]. The following attachments cannot be sent through Care Everywhere.Gastroparesis (North Korean)documented in this encounter [facility] 02-05-2025 [facility] Discharg e instructions Rod Colmenares MD - 02/05/2025 10:16 PM EDT Follow up with the listed physician or medical clinic within 24-72 hours. Return to the Emergency Department if you develop any new or concerning symptoms or if your are getting worse documented in this encounter [facility] 02-01-2025 Telephone encounter Note MARGE: 12/02/2024 LDH: NOV: NDH: See note from 01/26/2025 been in ER, tried clears Taking gimoti as directed EGD w/pop done 01/13/2025 [facility] 02-01-2025 Miscellaneous Notes MARGE: 12/02/2024 LDH: NOV: NDH: See note from 01/26/2025 been in ER, tried clears Taking gimoti as directed EGD w/pop done 01/13/2025 documented in this encounter [facility] 02-01-2025 Note Procedure: CT of the abdomen [...] Hepatic steatosis. Moderate hepatomegaly. Radiation Dose Estimate: CTDI(mGy):0.075865 / / / kVp:120.582398 / mAs:0.835572 / / / DLP(mGy-cm):4.906238Yndm Part: Abdomen CTDI(mGy):41.301295 / / / kVp:140.195252 / mAs:181.576951 / / / DLP(mGy-cm):2361.043420Evpr Part: Abdomen Final Dictated by: Ronaldo Childers MD Dictated DT/TM: 02.01.2025 10:51 am Signed by: Ronaldo Childers MD Signed (Electronic Signature): 02.01.2025 10:56 am (If Report Is Signed, Electronically Signed in Other Vendor System) [facility] 01-26-2025 Evaluation + Plan note Extrac cr [...] Tests Radiology* NM Gastric Emptying Study 05/25/24 [facility] [id number] Telephone encounter Note* Telephone Encounter - Abel Beckwith - 01/26/2025 10:50 AM EDT Called pt in regards to mycselden request to schedule appt with Dr Lackey. She has an OV with DR Sánchez for 4 wk post op 02/12. She will wait to hear from Dr Lackey to schedule [facility]05-06-2025 Miscellaneous Notes* Telephone Encounter - Abel Beckwith - 01/26/2025 10:50 AM EDT Called pt in regards to mychart request to schedule appt with Dr Lackey. She has an OV with DR Sánchez for 4 wk post op 02/12. She will wait to hear from Dr Lackey to schedule * Telephone Encounter - Dixie Grimaldo RN - 01/26/2025 9:07 AM EDT MARGE: 12/02/2024 LDH: NOV: NDH: Spoke with patient Having Flare with pain 10/10 and nausea uses phenergan supp, compazine,zofran without relief ER x 2 [place]-[facility] Yesterday [facility] [place] Xray done states Soft diet currently Bowels-constipated [...] Patient Question ([facility] she is in a lot of pain and would like to speak with someone ) Patient has been identified by name and birthdate. Duration of symptoms: N/A Person calling: self Call patient at: at home [phone] (home) Was an appointment scheduled: No Closing statement: Symptom Call: Thank you for calling [facility], your call is very important. A nurse will call in approximately 2-4 hours during business hours. If this is an emergency, please contact 911. Laith Massey documented [facility] Telephone encounter Note * Telephone Encounter - Dixie Grimaldo RN - 01/26/2025 9:07 AM EDT MARGE: 12/02/2024 LDH: NOV: NDH: Spoke with patient Having Flare with pain 10/10 and nausea uses phenergan supp, compazine,zofran without relief ER x 2 [place]-[facility] Yesterday [facility] [place] Xray done states Soft diet currently Bowels-constipated for a long time, then diarrhea started yesterday and pain and nausea worse. Normally Takes Dulcolax, stool softener, miralax for constipation Has POP scheduled 02/12/[address] Sánchez Please advise [facility]05-06-2025 Hospital Discharge instructions Patient Education 01/26/2025 03:40:39 [...] vomiting. Follow these instructions at home: Take jgqb-agl-yrsttqq and prescription medicines only as told by [...] provider. Document Revised: 01/16/2021 Document Reviewed: 01/16/2021 [employer] Patient Education 2023 [employer]. 01/26/2025 03:40:39 Abdominal Pain, Adult Abdominal Pain, [...] Follow these instructions at home: Medicines Take hvyh-iij-mqblddz and prescription medicines only as told by [...] provider. Document Revised: 06/26/2023 Document Reviewed: 06/26/2023 [employer] Patient Education 2023 [employer]. Follow Up Care 01/26/2025 00:58:44 With:Aly Beverly Address: [address], [address] [address] [phone] Business (1) When:01/29/2025 Comments:Make sure to follow-up with Dr. Beverly as discussed. Return to the emergency room if your pain gets worse, vomiting recurs or any new symptoms. With:YOSSI GOLDEN Address: [address] [place], [place] [address] [address] Business (1) When:Within 3 Day(s) [facility] 05-06-2025 NoteED Patient Education Note Gastroenterology Gastroparesis [...] Follow these instructions at home: ??? Take saud-iav-optabff and prescription medicines only as told by [...] and loss of ap (more content not included)...[facility]05-05-2025 Telephone encounter Note* Telephone Encounter - Laith Massey - 01/25/2025 3:04 PM EDT Gael is calling Yajaira Lackey DO today with concern regarding Patient Question ([place] she is in a lot of pain and would like to speak with someone ) Patient has been identified by name and birthdate. Duration of symptoms: N/A Person calling: self Call patient at: at home [phone] (home) Was an appointment scheduled: No Closing statement: Symptom Call: Thank you for calling [facility], your call is very important. A nurse will call in approximately 2-4 hours during business hours. If this is an emergency, please contact 911. Laith Massey [facility]05-02-2025 Telephone encounter Note* Telephone Encounter - Donna Saini RN - 01/22/2025 11:33 AM EDT PA for Gimoti (renewal) submitted to [facility] via facsimile at [phone]. Awaiting response from [employer] [place] Medicaid. Patient has been being treated with Gimoti/Metoclopramide Nasal [place] since 12/02/2024 and it worksbest for her plan of care. Spoke with patient (identified by two identifiers), tried/failed/ineffective: Dulcolax/Bisacodyl, OTC, 09/23/2024-current Miralax/Polyethylene Glycol 08/13/2024-current Colace/Docusate Sodium, OTC, 04/23/2025-current Reglan/Metoclopramide 10 mg tablet 05/20/2024-12/15/2024 [facility]05-02-2025 Miscellaneous Notes* Telephone Encounter - Donna Saini RN - 01/22/2025 11:33 AM EDT PA for Gimoti (renewal) submitted to [facility] via facsimile at [phone]. Awaiting response from [employer] [place] Medicaid. Patient has been being treated with Gimoti/Metoclopramide Nasal [place] since 12/02/2024 and it worksbest for her plan of care. Spoke with patient (identified by two identifiers), tried/failed/ineffective: Dulcolax/Bisacodyl, OTC, 09/23/2024-current Miralax/Polyethylene Glycol 08/13/2024-current Colace/Docusate Sodium, OTC, 04/23/2025-current Reglan/Metoclopramide 10 mg tablet 05/20/2024-12/15/2024 [facility] Hospital Discharge instructions* Discharge Instructions* Imelda Huynh MD - 01/01/2025 2:06 AM EDT Continue with your outpatient follow-up with GI and primary care doctor. Continue with your current nausea regimen. Return to the ER for any worsening symptoms or concerns. * Attachments The following attachments cannot be sent through Care Everywhere. * Abdominal Pain (North Korean) documented in this encounterBon [facility]04-07-2025 NotePatient Education Materials Name: Gael Ruby Current Date: 12/28/2024 10:42:21 [facility] : 1995 The following sheet(s) are the [...] A1c goal less than 7% to prevent terminal supervisor complications that high sugar can lead to [...] developing sores, blisters, cracks, nailbed concerns. See sql server developer for toenail trimming and promptly for any [...] ? Low-fat or nonfat milk, corrage cheese, zimbabwean yogurt, cheese FIBER: Fiber goal over 25 [...] fresh fruit (4 o (more content not included)...[facility]04-03-2025 History and physical note* Chapin Foote, OSMAR.SALESPERSON FLOWERS - 12/24/2024 11:09 AM EDT Images from [...] 2 diabetes mellitus (HCC) Assessment: Follows with [facility] or PCP No primary care provider on [...] large neck Non-male patient STOP-Bang Score: 2 [id number] Score: Age: <65 Sex: female CHF history: No Hypertension history: Yes Stroke/TIA/thromboembolism history: No Vascular disease history: No Diabetes history: Yes [id number] Score: 3 ASA Class: 3 I - [...] accepted for procedure. - EKG 06/16 in [facility] reviewed and accepted for procedure. - No further testing required per PACC guidelines CONSULTS: Patient does not require consults for optimization at this time Planned Anesthetic: anesthesia choice The Following Tests/Procedures Have Been Initiated: No orders of the defined types were placed in this encounter. REASON FOR VISIT: Gael Ruyb is a 29 year old female who [...] fevers. Neurological: No history of TIA's, stroke, INVESTOR RELATIONS ASSOCIATE tumor, impaired sensorium, hemiplegia, paraplegia orquadraplegia. No [...] Types: Cigarettes Smokeless tobacco: Never Tobacco comments: /2 ppd Substance Use Topics Alcohol use: Never [...] (GIMOTI) 15 mg/spray nasal spray Use 1 [place] in the nose four times daily. Yes [...] or any previous visit (from the past 69397 hours). Instructions Given to Patient: Instructions located in the after visit summary. Patient given verbal and written preop instructions and voices comprehension and compliance. SIGNATURE: Chapin Foote APRN.CNP PATIENT NAME: Gael Ruby DATE: December 24, 2024 TIME: 11:09 AM PAGER/CONTACT #: [facility]04-03-2025 History and physical note* Chapin Foote APRN.CNP [...] 2 diabetes mellitus (HCC) Assessment: Follows with [facility] or PCP No primary care provider on [...] large neck Non-male patient STOP-Bang Score: 2 [id number] Score: Age: <65 Sex: female CHF history: No Hypertension history: Yes Stroke/TIA/thromboembolism history: No Vascular disease history: No Diabetes history: Yes [id number] Score: 3 ASA Class: 3 I - [...] accepted for procedure. - EKG 06/16 in [facility] reviewed and accepted for procedure. - No [...] Immunization Status Current Care Gaps Covid-19 Vaccine (2023- season) Overdue since 05/24/2024 08/13/2021 Imm Admin: [...] fevers. Neurological: No history of TIA's, stroke, INVESTOR RELATIONS ASSOCIATE tumor, impaired sensorium, hemiplegia, paraplegia orquadraplegia. No [...] (GIMOTI) 15 mg/spray nasal spray Use 1 [place] in the nose four times daily. Yes [...] or any previous visit (from the past 46733 hours). Instructions Given to Patient: Instructions located in the after visit summary. Patient given verbal and written preop instructions and voices comprehension and compliance. SIGNATURE: Chapin Foote APRN.CNP PATIENT NAME: Gael Ruby DATE: December 24, 2024 TIME: 11:09 AM PAGER/CONTACT #: documented in this encounterR[facility]04[facility]25 Instructions* Patient Instructions* Chapin Foote APRN.CNP - 12/24/2024 11:09 AM EDT Images from the original note were not included. [facility] PATIENT PREOPERATIVE INSTRUCTIONS Ronaldo Sánchez DO has scheduled you for your procedure at this surgery center: [facility]: [phone] -- [place] [address]. Please read below carefully for your personalized [...] surgery If you are currently using a sxeb-onv-qyrv injectable or oral medication for diabetes or [...] Procedures: - YOU MUST HAVE A RESPONSIBLE BUILD AUTOMATION ENGINEER TAKE YOU HOME. A REELING MACHINE OPERATOR OR ACCESSIBILITY LIFT TECHNICIAN CANNOT BE MADE A RESPONSIBLE BUILD AUTOMATION ENGINEER. - We recommend that a responsible person stays with you overnight to take care of you. - You cannot stay in a hotel alone after outpatient surgery. You will not be permitted to have yoursurgery, if you do not have someone to take care of you. If you already have an Advance Directive, please fax a copy to [phone] or email to for it to be [...] into your chart that day. Chapin Foote APRN.SALESPERSON FLOWERS documented in this encounterR[facility]03-[facility]-2025 Telephone encounter Note * Telephone Encounter - Richard Peres RN - 12/15/2024 1:57 PM EDT Patient scheduled for POP 01/13/2025. Post POP follow up in 4 weeks to be scheduled by GP team. Aware of need for [facility] PACC. Pre and post POP instructions discussed in detail with written copy provided via [employer]. Discussed meds and pended. No other questions/concerns at this time. [facility]03-25-2025 Miscellaneous Notes* Telephone Encounter - Richard Peres RN - 12/15/2024 1:57 PM EDT Patient scheduled for POP 01/13/2025. Post POP follow up in 4 weeks to be scheduled by GP team. Aware of need for [facility] PACC. Pre and post POP instructions discussed in detail with written copy provided via [employer]. Discussed meds and pended. No other questions/concerns at this time. documented in this encounterR[facility]03-25-2025 NoteHNO ID: [id number] Author: RONALDO SÁNCHEZ, DO Service: ? Author Type: Physician Type: Progress Notes Filed: 12/15/2024 11:38 Note Text: Digestive Disease AND Surgery [place] Gastroparesis/Dysmotility Virtual Consultation This encounter was provided via two-way, live video teleconferencing within the guidelines of state licensure rules for new and established patients. I have communicated my name and active licensure. The patient's identity and physical location were verified at the time of this visit. Either the patient or their legal sales promotion representative has been informed of the risks [...] primary care provider on file. Yajaira Lackey [facility] [address] [place] [id number] My final recommendations will be communicated back [...] to proceed. NAME: Gael Ruby CLINIC NO: [id number] DATE OF SERVICE: December 15, 2024 This [...] V Leiden, GERD, anxiety (more content not included)...[facility] 12-15-2024 History of Present illness Narrative* Ronaldo Sánchez, - 12/15/2024 10:42 AM EDT Images from the original note were not included. Digestive Disease & Surgery [place] Gastroparesis/Dysmotility Virtual Consultation This encounter was provided via two-way, live video teleconferencing within the guidelines of statelicensure rules for new and established patients. I have communicated my name and active licensure.The patient's identity and physical location were verified at the time of this visit. Either the patient or their legal sales promotion representative has been informed of the risks [...] primary care provider on file. Yajaira Lackey [facility] [address] [place] [id number] My final recommendations will be communicated back [...] to proceed. NAME: Gael Ruby CLINIC NO: [id number] DATE OF SERVICE: December 15, 2024 This [...] (GIMOTI) 15 mg/spray nasal spray Use 1 [place] in the nose four times daily. No [...] dialysis. No history of symptoms or problems. CLAIMS SORTER: Negative for abnormal vaginal bleeding, abnormal vaginal [...] 2024 TIME: 10:43 AM documented in this encounterRiver[facility] Institute03-14-2025 NoteHNO ID: [id number] Author: YAJAIRA LACKEY DO Service: ? Author Type: Physician Type: Progress Notes Filed: 12/04/2024 13:37 Note Text:[facility]03-14-2025 History of Present illness Narrative* Yajaira Lackey DO - 12/04/2024 1:37 PM EDT Images from the original note were not included. documented in this encounterRiverview [facility] Institute03-13-2025 Telephone encounter Note * Telephone Encounter - Marques Grijalva MA - 12/03/2024 2:04 PM EDT Approved Prior authorization approved Payer: [employer] Note from payer: Your PA request for [id number] was approved for 56 days. The PA# assigned is [id number]. Approved Medication: GIMOTI 15 MG NASAL SPRAY Approval Details Authorization number: [id number] Authorized from December 02, 2024 to January 26, 2025 Electronic appeal: Not supported View History [facility]03-13-2025 Miscellaneous Notes* Telephone Encounter - Marques Grijalva MA - 12/03/2024 2:04 PM EDT Approved Prior authorization approved Payer: [employer] Note from payer: Your PA request for [id number] was approved for 56 days. The PA# assigned is [id number]. Approved Medication: GIMOTI 15 MG NASAL SPRAY Approval Details Authorization number: [id number] Authorized from December 02, 2024 to January 26, 2025 Electronic appeal: Not supported View History documented in this encounterRiverview [facility] Institute03-12-2025 Telephone encounter Note * Telephone Encounter - Karla Mcnally RN - 12/02/2024 3:44 PM EDT PA for Gimoti initiated electronically through [employer]. Awaiting response [place] Medicaid ID# [id number] Rx BIN [id number] Rx PCN OHRXPROD [facility]03-12-2025 Miscellaneous Notes* Telephone Encounter - Karla Mcnally RN - 12/02/2024 3:44 PM EDT PA for Gimoti initiated electronically through [employer]. Awaiting response [place] Medicaid ID# [id number] Rx BIN [id number] Rx PCN OHRXPROD documented in this encounterRiverview Health Institute03-12-2025 History of Present illness Narrative* Yajaira Lackey DO - 12/02/2024 2:00 PM EDT GASTROPARESIS CONSULT [...] fullness with moderate appetite loss. Drinks one [employer]yst[employer] or [employer] Diabetes nutrition drink per day. Intermittent marijuana use. Has struggled with some anorexia and binge/purging her freshman yr in [employer]. States eating disorder behaviors resolved on their [...] Medications - Does the patient see a pain coordinator for chronic pain?No - Is the patient [...] and binge and purging - Freshman in highschool. Resolved on it's own. Psychiatric Disorders - Does the patient have a history of psychiatric disorders including PTSD: Yes If yes, please explain: anxiety, depression, and PTSD. Nutrition - Has the patient met with a tool lapper hand for diet recommendations with Gastroparesis? No - [...] No history of dysuria, frequency or incontinence CLAIMS SORTER: Negative for abnormal vaginal bleeding, abnormal vaginal [...] spray 3. Chronic idiopathic constipation K59.04 ADULT [place] ANORECTAL MANOMETRY Yajaira Lackey DO 12/01/2024 documented in this encounterRiver[facility] Institute03-12-2025 NoteHNO ID: [id number] Author: YAJAIRA LACKEY DO Service: ? Author [...] fullness with moderate appetite loss. Drinks one [employer]ystData or coUrbanize Diabetes nutrition drink per day. Intermittent marijuana use. Has struggled with some anorexia and binge/purging her freshman yr in [employer]. States eating disorder behaviors resolved on their [...] Medications - Does the patient see a pain coordinator for chronic pain?No - Is the patient taking narcotic pain medication for chronic abdominal pain? No - Narcotic Medications: (Tramadol, Fentanyl, codeine, hydrocodone, Hydromorphone, methadone, morphine, Oxycodone) No Drug use - History or current drug use (Marijuana, Cocaine, Heroine, etc...) Yes marijuana intermittent weekly Eating Disorders - Does the patient have a history of eating disorders Yes (more content not included)...[facility]03-12-2025 NoteHNO ID: [id number] Author: KRUPA OROSCO LPN Service: ? Author Type: LICENSED NURSE Type: Progress Notes Filed: 12/02/2024 13:26 Note Text: ELECTROGASTROGRAPY W/ TEST Operation / Procedure performed 350 cc water intake [facility] History of Present illness Narrative* Krupa Orosco LPN - 12/02/2024 1:22 PM EDT ELECTROGASTROGRAPY W/ TEST Operation / Procedure performed 350 cc water intake Krupa Orosco LPN documented in this encounterRiverview Health Institute02-14-2025 History of Present illness Narrative* Gael Chase [...] PM EST PT up to couch when principal technical writer entered the room. PT A&O x4 [...] reach, care on-going. * Queenie Olson RD, LD - 11/05/2024 10:10 AM EST Nutrition Education Educated on pancreatitis nutrition therapy and food label guide Learners: Patient Readiness: Acceptance Method: Explanation and Handout Response: Verbalizes Understanding Contact name and number provided. QUEENIE OLSON RD, LD Contact Number: [phone] * Aliyah Webster RN - 11/05/2024 6:58 AM EST Manager Primary Care to bedside to complete morning assessment. Upon entry to room, pt alert resting in bed, respirations even while on room air. Vitals obtained and assessment completed, see flow sheet for details. Pt denies needs from principal technical writer at this time. Call light in reach. Care ongoing. * Aissatou Salcedo APRN - DEMARCUS - 11/05/2024 6:38 AM EST Progress Note [...] Well developed, well nourished with no malnutrition Reel System Operator consult initiated Hospital Prophylaxis: DVT: SCD's Stress Ulcer: PPI Disposition: Shared decision making: All test results, treatment options and disposition options were discussed with the patient today Social determinants of health that may impact management: none Code status: Full Code Disposition: Discharge plan is pending [facility] Advanced Care Planning documentation: [x] I have [...] the patient's medical record. [DOES NOT SATISFY [facility] PERFORMANCE] Aissatou Salcedo APRN - SALESPERSON FLOWERS , PREP COOK, PARK MAINTENANCE TECHNICIAN-C Hospitalist Medicine 11/05/2024, 6:39 AM Associated attestation - Wilman Bains MD - 11/05/2024 8:12 AM EST Images from the original note were not included. [address], [place], [place], [address] Attestation Patient: Gael Ruby Date of Admission: 11/04/2024 9:30 PM Hospital Day # 0 Date of Evaluation: 11/05/2024 I personally evaluated and examined the patient endb-ve-pkps in conjunction with the PA/PARK MAINTENANCE TECHNICIAN and agree with the management and dispostition of the patient. Please see the PA/PARK MAINTENANCE TECHNICIAN's note for full details.My wellington findings are: [...] lesions. DATA: Complete Blood Count: Recent Labs 02/12214411/05/24 0610 WBC 13.1* 12.2* RBC 5.15* 4.88 HGB 15.1 14.1 HCT 44.6 43.0 MCV 86.6 88.1 RDW 13.9 14.1 PLT 322 249 Recent Labs 11/04/24 2145 11/05/24 0610 NEUTROABS 7.45 7.13 LYMPHOPCT 36 33 [...] with the plan as outlined in the PARK MAINTENANCE TECHNICIAN/PA's note Disposition: Discharge plan is pending Please note that this chart was generated using voice recognition [employer] dictation software. Although every effort was made to ensure the accuracy of this automated graphics software engineer, some errors in graphics software engineer may have occurred. Wilman Bains MD 11/05/2024 8:11 AM * Savanah Gonzalez [...] Chemistry: No results found for: PHART , KNC9JUT , PO2ART , M9RFLFTB , TSZ3PYJ , PBEA , NBEA VITALS Pulse: 72 [...] planof care is ongoing. documented in this encounterBon [facility] Discharge instructions* Discharge Instr - Activity* [...] at most local grocery stores, pharmacies, and [employer] [place]. If you have any questions about your diet or nutrition, call the hospital and ask for the dietitian. Carb Control, low fat * Attachments The following attachments cannot be sent through Care Everywhere. * Pancreatitis: Acute: General Info (North Korean) documented in this encounterBon [facility] History of Present illness Narrative* Gael Chase RN - 10/21/2024 11:34 AM EST Reviewed discharge instructions with patient. Patient aware of need to grain picker new prescription. Reviewed new medication and [...] provided. QUEENIE OLSON RD, LD Contact Number: [phone] * Queenie Olson RD, LD - 10/21/2024 9:38 AM EST Comprehensive Nutrition Assessment Type and Reason for Visit: Initial, Positive nutrition screen (MST 2) Nutrition Recommendations/Plan: Continue current diet. Continue current ONS. Progress diet to low fat, CC 4 carbs per meal diet as medically appropriate. Malnutrition Assessment: Malnutrition Status: At risk for malnutrition (10/21/24 0957) Context: Acute Illness Findings of the 6 clinical characteristics of malnutrition: Energy Intake: Mild decrease in energy intake (2-3 days) Weight Loss: Mild weight loss (5.5% x 6 months) Body Fat Loss: No body fat loss Muscle Mass Loss: No muscle mass loss Fluid Accumulation: No fluid accumulation Terminal Supervisor Strength: Not Performed Nutrition Assessment: Inadequate oral [...] Measures: Height: 172.7 cm (5' 8 ) [place] Body Weight (IBW): 140 lbs (64 kg) [...] Used for Energy Requirements: Current Energy (kcal/day): 4482-3168 (15-18/kg) Weight Used for Protein Requirements: [place] Protein (g/day): 77-90g (1.2-1.4g/kg) Method Used for Fluid Requirements: 1 ml/kcal Fluid (ml/day): 1,900 ml Hematology: Recent Labs 10/20/24 0810/21/24 0600 WBC 12.8* 7.9 HGB 15.2* 14.1 HCT 44.8 43.2 Chemistry: Recent Labs 10/20/24 0810/21/24 0600 NA 140 140 K 4.4 4.2 CL 102 106 CO2 22 25 GLUCOSE 208* 150* BUN 10 8 CREATININE 0.8 0.7 CALCIUM 9.6 8.6 Recent Labs 10/20/24 0805 10/21/24 0600 AST 50* 44* ALT 36* 40* ALKPHOS 100 86 BILITOT 0.5 0.5 LIPASE 238* 90* No results found for: VITD25 Lab Results Component Value Date/Time LABA1C 8.0 09/30/2024 08:22 AM Recent Labs 10/20/24 1634 10/20/24199910/21/24 0701 POCGLU 117* 137* 156* Lab Results [...] to determine QUEENIE OLSON RD, LD Contact: [phone] * Rimma Montesinos RN - 10/21/2024 8:50 [...] Chemistry: No results found for: PHART , QTY5GJV , PO2ART , S7AIJTCS , RJN9DHL , PBEA , NBEA VITALS Pulse: 68 [...] in room 326. Report received from Juvencio RN at the bedside. Patient transferred to the [...] in lowest position. documented in this encounterBon [facility] Hospital Discharge instructions* Discharge Instructions* [...] at most local grocery stores, pharmacies, and [employer]-stores. If you have any questions about your diet or nutrition, call the hospital and ask for the dietitian. Clear liquids, slowly advance as tolerated to low fat, carb control. * Attachments The following attachments cannot be sent through Care Everywhere. * Pancreatitis: Acute: General Info (North Korean) * Low-Fat: Diet: General Info ([place] Korean) documented in this encounterBon [facility] Discharge instructions Patient Education [...] Follow these instructions at home: Medicines Take juil-mxe-ccmivwk and prescription medicines only as told by [...] provider. Document Revised: 06/26/2023 Document Reviewed: 06/26/2023 [employer] Patient Education 2023 [employer]. Follow Up Care 10/15/2024 17:58:05 With:YOSSI GOLDEN Address: [address] [address] Business (1) When:10/18/2024 18:52:50 Comments:Call [...] weakness, or any new or worsening symptoms. [facility] 01-23-2025 NoteED Patient Education Note Gastroenterology Abdominal [...] these instructions at home: Medicines ??? Take ooss-fmn-afvqfvo and prescription medicines only as told by [...] provider. Document Revised: 06/26/2023 Document Reviewed: 06/26/2023 Elsevier Patient Education ? 2023 [employer].[facility] 10-15-2024 Evaluation + Plan noteExtracted from: Title:ED [...] Tests Radiology* NM Gastric Emptying Study 05/25/24 [facility] 01-17-2025 Hospital Discharge instructions Patient Education 10/08/2024 [...] vomiting. Follow these instructions at home: Take yfud-czl-fetqkue and prescription medicines only as told by [...] provider. Document Revised: 01/16/2021 Document Reviewed: 01/16/2021 [employer] Patient Education 2023 [employer]. Follow Up Care 10/08/2024 17:46:51 With:Aly Beverly Address: [address], [address] [phone] Business (1) When:10/11/2024 19:31:50 With:YOSSI GOLDEN Address: [address] [place] [address] Business (1) When:Within 3 Day(s) [facility] 01-16-2025 NoteED Patient Education Note Gastroenterology Gastroparesis [...] Follow these instructions at home: ??? Take kkbi-mtr-cpsbhsy and prescription medicines only as told by [...] and loss of ap (more content not included)...[facility]01-16-2025 Evaluation + Plan noteExtracted from: Title:ED Note [...] Date:10/13/2024 01:45:00 PM Scheduled Provider:Aly Beverly MD Location:[facility] [place] Digestive Health Appointment Type:[facility] Follow Up Diagnostic Tests Pending * Urine Culture 10/08/24 Future Scheduled Tests Radiology* NM Gastric Emptying Study 05/25/24 [facility] [id number] History of Present illness Narrative* Yossi Golden MD - 10/08/2024 10:50 AM ESTAssociated Problem(s): Class 2 severe obesity due to excess calories with serious comorbidity and body mass index (BMI) of 37.0 to 37.9 in adult ([facility]/HCC) Weight loss indicated * Yossi Golden MD - 10/08/2024 10:50 AM ESTAssociated Problem(s): Major depressive disorder, recurrent, moderate (CMS/HCC) Symptoms unchanged and continue prozac. * Yossi Golden MD - 10/08/2024 10:49 AM ESTAssociated Problem(s): Type 2 diabetes mellitus with hyperglycemia, with long-term current use of insulin ([facility]) BS improved and A1C 8.0. Follow with endo. * Yossi Golden MD - 10/08/2024 10:49 AM ESTAssociated Problem(s): Diabetic gastroparesis associated with type 2 diabetes mellitus ([facility]/HCC) Symptoms unchanged and continue medication. Follow with [...] (Lipitor) 40 MG tablet documented in this encounterSt. [facility] [id number] Hospital Discharge instructions Patient Education 10/06/2024 19:33:53 Abdominal Pain, Adult, Srgd-cn-Uoum Abdominal Pain, Adult Many things can cause belly (abdominal) pain. In most cases, belly pain is not a serious problem and can be watched and treated at home. But in some cases, it can be serious. Your doctor will try to find the cause of your belly pain. Follow these instructions at home: Medicines Take mnbd-stw-eqiausl and prescription medicines only as told by [...] provider. Document Revised: 06/26/2023 Document Reviewed: 06/26/2023 Marianne Patient Education 2023 [employer]. Follow Up Care 10/06/2024 13:01:38 With:Aly Beverly Address: [address], [address] [phone] Business (1) When:10/09/2024 19:33:31 Comments:Call to schedule a follow-up appointment with your 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 Use the Bentyl and Phenerganas needed for symptom management. Return to the ED with any new or worsening symptoms. With:YOSSI GOLDEN Address: [address] [place] [address] Business (1) When:Within 3 Day(s) [facility] 01-14-2025 NoteED Patient Education Note Gastroenterology Abdominal Pain, Adult Many things can cause belly (abdominal) pain. In most cases, belly pain is not a serious problem and can be watched and treated at home. But in some cases, it can be serious. Your doctor will try to find the cause of your belly pain. Follow these instructions at home: Medicines ??? Take oreu-fnm-pkostdi and prescription medicines only as told by [...] provider. Document Revised: 06/26/2023 Document Reviewed: 06/26/2023 [employer] Patient Education ? 2023 [employer].[facility] 10-05-2024 Hospital Discharge instructions Patient Education 10/05/2024 [...] vomiting. Follow these instructions at home: Take yxjo-dpd-eylvxxv and prescription medicines only as told by [...] provider. Document Revised: 01/16/2021 Document Reviewed: 01/16/2021 [employer] Patient Education 2023 [employer]. Follow Up Care 10/04/2024 18:49:51 With:Colt Allan Address: [address], [address] [phone] Business (1) When:10/08/2024 With:Colt Allan Address: [address], [address] [phone] Business (1) When:10/08/2024 With:YOSSI GOLDEN Address: [address] [place] [address] Business (1) When:Within 3 Day(s) [facility] 01-13-2025 NoteED Patient Education Note Gastroenterology Gastroparesis [...] Follow these instructions at home: ??? Take wihh-zhk-lfndljk and prescription medicines only as told by [...] and loss of ap (more content not included)...[facility]01-12-2025 Evaluation + Plan noteExtracted from: Title:ED Note [...] Tests Radiology* NM Gastric Emptying Study 05/25/24 [facility] 01-09-2025 NotePatient Education Materials Name: Gael Ruby Current Date: 10/01/2024 09:50:51 [place] : 1995 The following sheet(s) are the [...] A1c goal less than 7% to prevent assisted complications that high sugar can lead to [...] developing sores, blisters, cracks, nailbed concerns. See sql server developer for toenail trimming and promptly for any [...] ? Low-fat or nonfat milk, corrage cheese, zimbabwean yogurt, cheese FIBER: Fiber goal over 25 [...] ? cup Ice Cream or Sherbet ? North Korean Muffin ? large Baked Potato (3 ounces) 2 small Cookies 4 to 6 Crackers 1/3 cup Rice 2-inch square Cake without Frosting 2-inch square Brownie 6 chicken Nuggets FATS: Saturated and trans fats are unhealthy for your heart. They raise LDL (bad) cholesterol. Fat is also high in c (more content not included)...[facility]01-[facility] Hospital Discharge instructions Patient Education 09/30/2024 13:04:05 [...] Follow these instructions at home: Medicines Take qauz-fce-sdrethu and prescription medicines only as told by [...] provider. Document Revised: 06/26/2023 Document Reviewed: 06/26/2023 [employer] Patient Education 2023 [employer]. Follow Up Care 09/30/2024 10:46:00 With:YOSSI GOLDEN Address: [address] [place] [address] Business (1) When:10/03/2024 12:59:39 Comments:Call [...] weakness, or any new or worsening symptoms. [facility] 01-08-2025 Evaluation + Plan noteExtracted from: Title:ED [...] Tests Radiology* NM Gastric Emptying Study 05/25/24 [facility] 01-08-2025 NoteED Patient Education Note Gastroenterology Abdominal [...] these instructions at home: Medicines ??? Take kbzn-uys-zmlfqba and prescription medicines only as told by [...] provider. Document Revised: 06/26/2023 Document Reviewed: 06/26/2023 [employer] Patient Education ? 2023 [employer].[facility] 09-24-2024 Note* Addendum Note - Yajaira Lackey DO - 09/24/2024 3:36 PM EST Addended by: YAJAIRA LACKEY on: 09/24/2024 03:36 PM Modules accepted: Orders [facility]01-02-2025 Miscellaneous Notes* Addendum Note - Yajaira Lackey [...] is Aly Beverly. Best contact info is [phone]. Thank you, Marilyn [facility] Telephone encounter Note * Telephone Encounter - Yajaira Lackey DO - 09/24/2024 3:35 PM EST ME AND SURGERY, EGG is in [facility]01-02-2025 Telephone encounter Note* Telephone Encounter - Nancy [...] a week? Yes Referring Provider: Beto Lu [facility]01-02-2025 Telephone encounter Note* Telephone Encounter - Abel Beckwith - 09/24/2024 1:34 PM EST GI records in scanned docs No GES/allergic to Egg Intake needed [facility]01-02-2025 Telephone encounter Note* Telephone Encounter - Abel Beckwith - 09/24/2024 1:34 PM EST ----- Message from Anne Cavazos sent at 09/21/2024 10:38 AM EST ----- Regarding: Gastroparesis Good morning, We received a referral for patient to be seen in Gastroenterology for Gastroparesis. Referring provider is Aly Beverly. Best contact info is [phone]. Thank you, Marilyn [facility]12-26-2024 Hospital Discharge instructions* Discharge Instructions* Rod Colmenares MD - 09/17/2024 3:24 PM EST Follow up with the listed physician or medical clinic within 24-72 hours. Return to the Emergency Department if you develop any new or concerning symptoms or if your are getting worse * Attachments The following attachments cannot be sent through Care Everywhere. * Nausea and Vomiting ([place] Korean) documented in this encounterBon [facility] NoteProgress Note-Physician Patient: GAEL RUBY Age: 29 years Sex: Female : 1995 Associated Diagnoses: None Author: Joao Kelley Jr., DO Postoperative Information Postoperative disposition: Postoperative disposition: Home. Optimetrix number: Optimetrix number [id number]. Anesthetic utilized: General. Physical Examination Vital Signs [...] to Ambulatory Surgery Unit, and To home ).[facility]:Result Comment: Electronically Signed By: Joao Kelley Jr., DO\.br\Date and Time Signed: 09/02/24 16:37 [id number] NotePatient Education - Text Endoscopy Care After [...] 04/23/2005 Document Re-Released: 03/03/2007 ExitCare??? Patient Information ???2010 [employer] (air [employer]). Infectious Disease Gastritis, Adult Gastritis is irritation [...] these instructions at home: Medicines ??? Take lcft-poz-uaipaqg and prescription medicines only as told by [...] or do deep yeny (more content not included)...[facility]12-11-2024 NoteEndoscopic Procedure Report - Other Patient: GAEL [...] out celiac disease Images Procedure images: Rec1_hd_video_2023____58_706.jpg Rec1_hd_video____46_410.jpg Rec1_hd_video_2023____36_428.jpg Rec1_hd_video_2023____48_450.jpg Rec1_hd_video_2023__T1__07_627.jpg Rec1_hd_video_2023____04_843.jpg Rec1_hd_video_2023___53_749.jpg Rec1_hd_video____44_883.jpg Rec1_hd_video____41_903.jpg Rec1_hd_video_2023____32_098.jpg . Post-Procedure Complications: none. Estimated blood [...] follow in GI clinic in 1-2 after dischargePromedica Bay Park HospitalComment on above:Result Comment: Electronically Signed By: Beto GREWAL, Aly Whitten\.br\Date and Time Signed: 09/02/24 15:04 ESTOther Comment: Missing Attachment - attachment storage system not supported [id number] Can be viewed in source system Missing Attachment - attachment storage system not supported [id number] Can be viewed in source systemMissing Attachment - attachment storage system not supported [id number] Can be viewed in source systemMissing Attachment - attachment storage system not supported [id number] Can be viewed in source systemMissing Attachment - attachment storage system not supported [id number] Can be viewed in source systemMissing Attachment - attachment storage system not supported [id number] Can be viewed in source systemMissing Attachment - attachment storage system not supported [id number] Can be viewed in source systemMissing Attachment - attachment storage system not supported [id number] Can be viewed in source system Missing Attachment - attachment storage system not supported [id number] Can be viewed in source systemMissing Attachment - attachment storage system not supported [id number] Can be viewed in source [phone] NoteHistory and Physical Patient: GAEL RUBY Age: 29 years Sex: Female : 1995 Associated Diagnoses: None Author: Aly Beverly MD Preoperative Information Indication for procedure and diagnosis: [...] day(s), # 45 cap(s), Refills(s) 0, Pharmacy: [facility] [id number], 172, cm, 08/13/24 9:03:00 EST, Height/Length Dosing,112, kg, 08/13/24 9:03:00 EST, Weight Dosing Motegrity 2 mg oral tablet: 2 mg = 1 tab(s), Oral, Daily, # 30 tab(s), Refills(s) 3, Pharmacy: [facility] [id number], 172, cm, 08/10/24 10:32:00 EST, Height/Length Dosing, 112, kg, 08/10/24 10:32:00 EST, Weight Dosing Pantoprazole [address] Tab: 40 mg = 1 tab(s), Oral, Daily, X 30 day(s), # 30 tab(s), Refills(s) 0, Pharmacy: [facility] [id number], 172, cm, 08/07/24 9:14:00 EST, Height/Length Dosing, 111.2, kg, 08/07/24 9:14:00 EST, Weight Dosing Phenergan 25 mg Supp: 25 mg = 1 supp, Rectal, q12hr, PRN Nausea/Vomiting, # 60 EA, Refills(s) 6, Pharmacy: [facility] [id number], 173, cm, 06/01/24 9:48:00 EDT, Height/Length Dosing, 111, kg, 06/01/24 9:48:00 EDT, Weight Dosing Reglan 10 mg Tab: 10 mg = 1 tab(s), Oral, q6hr, # 12 tab(s), Refills(s) 0, Pharmacy: [facility] [id number], 173, cm, 06/09/24 2:42:00 EDT, Height/Length Dosing, 115.4, kg, 06/09/24 2:42:00 EDT, Weight Dosing Zofran 4 mg Tab: 4 mg = 1 tab(s), Oral, q8hr, PRN Nausea/Vomiting, # 60 tab(s), Refills(s) 6, Pharmacy: [facility] [id number], 173, cm, 06/01/24 9:48:00 EDT, Height/Length Dosing, [...] All Problems Acute pancreatitis / SNOMED CT 721007567 / Confirmed Cholangiectasis / SNOMED CT 341285262 / Confirmed Cyst of right ovary / SNOMED CT 238609519580385 / Confirmed Diarrhea / SNOMED CT 622192330 / Confirmed Endometriosis (clinical) / SNOMED CT 755069790 / Confirmed Essential hypertension / SNOMED CT 20095798 / Confirmed Hiatal hernia / SNOMED CT 383357778 / Confirmed Left ventricular hypertrophy / SNOMED CT 36640390 / Confirmed Morbid obesity / SNOMED CT 640268451 / Confirmed Prolapsed lumbar intervertebral disc / SNOMED CT 126521261 / Confirmed Smoker / SNOMED CT 330988524 / Confirmed Bilateral lower extremity edema / SNOMED CT 6955042980 / Confirmed Dysphagia / SNOMED CT 17215818 / Confirmed GERD (gastroesophageal reflux disease) / SNOMED CT 187182771 / Confirmed History of pulmonary embolism / SNOMED CT 239665641 / Confirmed Insomnia / SNOMED CT 779408210 / Confirmed LINA (generalized anxiety disorder) / SNOMED CT 25681058 / Confirmed Depression / SNOMED CT 03565859 / Confirmed Diabetes / SNOMED CT 398796089 / Confirmed BMI 37.0-37.9, adult / SNOMED CT 491046871 / Confirmed Factor V Leiden / SN (more content not included)...[facility] Comment on above:Result Comment: Electronically Signed By: Beto GREWAL, Aly Whitten\.br\Date and Time Signed: 09/02/24 14:51 [id number] NoteProgress Note-Physician Patient: GAEL URBY [facility]: [id number] Age: 29 years Sex: Female : 1995 [...] day(s), # 45 cap(s), Refills(s) 0, Pharmacy: [facility] [id number], 172, cm, 08/13/24 9:03:00 EST, Height/Length Dosing,112, kg, 08/13/24 9:03:00 EST, Weight Dosing Motegrity 2 mg oral tablet: 2 mg = 1 tab(s), Oral, Daily, # 30 tab(s), Refills(s) 3, Pharmacy: [facility] [id number], 172, cm, 08/10/24 10:32:00 EST, Height/Length Dosing, 112, kg, 08/10/24 10:32:00 EST, Weight Dosing Pantoprazole [address] Tab: 40 mg = 1 tab(s), Oral, Daily, X 30 day(s), # 30 tab(s), Refills(s) 0, Pharmacy: [facility] [id number], 172, cm, 08/07/24 9:14:00 EST, Height/Length Dosing, 111.2, kg, 08/07/24 9:14:00 EST, Weight Dosing Phenergan 25 mg Supp: 25 mg = 1 supp, Rectal, q12hr, PRN Nausea/Vomiting, # 60 EA, Refills(s) 6, Pharmacy: [facility] [id number], 173, cm, 06/01/24 9:48:00 EDT, Height/Length Dosing, 111, kg, 06/01/24 9:48:00 EDT, Weight Dosing Reglan 10 mg Tab: 10 mg = 1 tab(s), Oral, q6hr, # 12 tab(s), Refills(s) 0, Pharmacy: [facility] [id number], 173, cm, 06/09/24 2:42:00 EDT, Height/Length Dosing, 115.4, kg, 06/09/24 2:42:00 EDT, Weight Dosing Zofran 4 mg Tab: 4 mg = 1 tab(s), Oral, q8hr, PRN Nausea/Vomiting, # 60 tab(s), Refills(s) 6, Pharmacy: [facility] [id number], 173, cm, 06/01/24 9:48:00 EDT, Height/Length Dosing, [...] All Problems Abdominal pain / SNOMED CT 81225274 / Confirmed Abdominal pain, periumbilical / SNOMED CT 2663321861 / Confirmed Acute pancreatitis / SNOMED CT 896064999 / Confirmed Bilateral lower extremity edema / SNOMED CT 3811092197 / Confirmed BMI 37.0-37.9, a (more content not included)...[facility] Comment on above:Result Comment: Electronically Signed By: Joao Kelley Jr., DO\Date and Time Signed: 09/02/24 13:37 [id number] NoteProgress Note-Nurse failed franki [facility]12-02-2024 Hospital Discharge instructions Follow Up Care 08/24/2024 12:13:05 With:Aly Beverly Address: [address] [place] [address], [address] [phone] Business (1) When:08/27/2024 17:29:38 With:YOSSI GOLDEN Address: [address] [place] [address] Business (1) When:Within 3 Day(s) [facility] 12-02-2024 Evaluation + Plan noteExtracted from: Title:ED Note Author:Tom JEONG Student, Papo Cavazos Date:08/24/24 Gastroparesis (K31.84: Gastr oparesis) Orders: acetaminophen [...] Appointments Appointment Date:09/02/2024 02:15:00 PM Scheduled Provider: Location:[facility] Surgical Services Appointment Type:Surgery Appointment Date:09/10/2024 12:00:00 PM Scheduled Provider:Aly Beverly MD Location:[facility] [place] Digestive Health Appointment Type:[facility] Follow Up Future Scheduled Tests Radiology* NM Gastric Emptying Study 05/25/24 [facility] 11-23-2024 NoteProgress Note-Physician Assessment/Plan 29-year-old female with [...] on IV Reglan pending gastroenterology evaluation. [facility] Moderate 35 Minutes 39260 2. Diabetes (E11.9: Type 2 diabetes mellitus without complications) On long-acting and short-acting insulin. Ordered: [facility]/Day Moderate 35 Minutes 07828 3. Factor V Leiden (D68.51: Activated protein C resistance) Not on anticoagulation chronically. Ordered: [facility]/Day Moderate 35 Minutes 68880 4. LINA (generalized anxiety disorder) (F41.1: Generalized anxiety disorder) On fluoxetine. Ordered: [facility]/Day Moderate 35 Minutes 69788 5. GERD (gastroesophageal reflux disease) (K21.9: Gastro-esophageal [...] made to ensure accuracy. However inadvertent computerized graphics software engineer errors may be present. Beatriz Green. [...] 86.1 fL (08/14/24 06:02:00) MCH: 29.2 pg (08/14/24:02:00) MCHC: 34 gm/dL (08/14/24 06:02:00) RDW: 14.1 % (08/14/24 06:02:00) Platelet: 290 E9/L (08/14/24 06:02:00) MPV: 7.9 fL (08/14/24 06:02:00) Neutro Auto: 54.8 % (08/14/24 06:02:00) Lymph Auto: 35.8 % (08/14/24 06:02:00) Webster Auto: 6.3 % (08/14/24 06:02:00) Eos Auto: 2.1 % (08/14/24 06:02:00) Basophil Auto: 1 % (08/14/24 06:02:00) Neutro Absolute: 3.8 E9/L (08/14/24 06:02:00) Lymph Absolute: 2.5 E9/L (08/14/24 06:02:00) Webster Absolute: 0.4 E9/L (08/14/24 06:02:00) Eos Absolute: 0.1 E9/L (08/14/24 06:02:00) Basophil Absolute: 0.1 E9/L (08/14/24 06:02:00) Glucose Lvl: 162 mg/dL (08/14/24 06:02:00) BUN: 11 mg/dL (08/14/24 06:02:00) Creatinine: 1 mg/dL (08/14/24 06:02:00) eGFR: 78 mL/min/1.73 m2 (08/14/24 06:02:00) BUN/Creat Ratio: 11 (08/14/24 06:02:00) Sodium Lvl: 139 (more content not included)...[facility] on above:Result Comment: Electronically Signed By: BENI GREWAL, Beatriz\.br\Date and Time Signed: 08/15/24 13:04 [id number] NoteInterdisciplinary Note - Nursing The patient left against medical advice (AMA), signed the appropriate form, and was discharged in stable condition.[facility] Evaluation + Plan noteExtracted from: Title:Inpatient Consultation -Floor Code* Author:Aly Beverly MD Date:08/14/24 Impression and Plan This is a [...] at this point Extracted from: Title:APSO Note Author:Beatriz GREEN MD Date:10/14/23 29-year-old female with insu luan-dependent diabetes [...] Ordered: Sbsq Hospital Care/Day Moderate 35 Minutes [id number] 2. Diabetes (E11.9: Type 2 diabetes mellitus without complications) On long-acting and short-acting insulin. Ordered: [facility]q Hospital Care/Day Moderate 35 Minutes 57063 3. Factor V Leiden (D68.51: Activated protein C resistance) Not on anticoagulation chronically. Ordered: [facility]bsq Hospital Care/Day Moderate 35 Minutes 74079 4. LINA (generalized anxiety disorder) (F41.1: Generalized anxiety disorder) On fluoxetine. Ordered: Sbsq Hospital Care/Day Moderate 35 Minutes 50330 5. GERD (gastroesophageal reflux disease) (K21.9: Gastro-esophageal [...] made to ensure accuracy. However inadvertent computerized graphics software engineer errors may be present. Beatriz Green. Hospitalist. Orders: metoclopramide, 10 mg = 2 mL, Injection, IV Push, QIDACHS for 6 dose(s), Stop date 08/15/24 7:29:00 EST, Routine, Start date 08/13/24 16:30:00 EST, 08/13/24 15:56:00 EST Capillary Glucose POC Capillary Glucose POC Capillary Glucose POC Addendum by Cris GREEN MD on August 14, 2024 12:14:53 EST I spoke with dry wall applicator advised no plans for EGD. Patient can [...] Vital Signs Weight Addendum by Juan ARZATE, Heerica ther A on August 13, 2024 17:21:55 [...] Appointments Appointment Date:09/02/2024 02:15:00 PM Scheduled Provider: Location:[facility] Surgical Services Appointment Type:Surgery FT Appointment Date:09/10/2024 12:00:00 PM Scheduled Provider:Aly Beverly MD Location:[facility] [place] Digestive Health Appointment Type:[facility] Follow Up Future Scheduled Tests Radiology* AL Gastric Emptying Study 05/25/24 [facility] 11-22-2024 NoteConsultation Note Patient: GAEL RUBY Age: [...] day(s), # 45 cap(s), Refills(s) 0, Pharmacy: [facility] [id number], 172, cm, 08/13/24 9:03:00 EST, Height/Length Dosing,112, kg, 08/13/24 9:03:00 EST, Weight Dosing Motegrity 2 mg oral tablet: 2 mg = 1 tab(s), Oral, Daily, # 30 tab(s), Refills(s) 3, Pharmacy: [facility] [id number], 172, cm, 08/10/24 10:32:00 EST, Height/Length Dosing, 112, kg, 08/10/24 10:32:00 EST, Weight Dosing Pantoprazole [address] Tab: 40 mg = 1 tab(s), Oral, Daily, X 30 day(s), # 30 tab(s), Refills(s) 0, Pharmacy: [facility] [id number], 172, cm, 08/07/24 9:14:00 EST, Height/Length Dosing, 111.2, kg, 08/07/24 9:14:00 EST, Weight Dosing Phenergan 25 mg Supp: 25 mg = 1 supp, Rectal, q12hr, PRN Nausea/Vomiting, # 60 EA, Refills(s) 6, Pharmacy: [facility] [id number], 173, cm, 06/01/24 9:48:00 EDT, Height/Length Dosing, 111, kg, 06/01/24 9:48:00 EDT, Weight Dosing Reglan 10 mg Tab: 10 mg = 1 tab(s), Oral, q6hr, # 12 tab(s), Refills(s) 0, Pharmacy: [facility] [id number], 173, cm, 06/09/24 2:42:00 EDT, Height/Length Dosing, 115.4, kg, 06/09/24 2:42:00 EDT, Weight Dosing Zofran 4 mg Tab: 4 mg = 1 tab(s), Oral, q8hr, PRN Nausea/Vomiting, # 60 t (more content not included)...[facility] HospitalComment on above:Result Comment: Electronically Signed By: Beto GREWAL, Aly Whitten\.br\Date and Time Signed: 08/14/24 13:03 [id number] NoteProgress Note-Physician Assessment/Plan 29-year-old female with insulin-dependent [...] Ordered: Sbsq Hospital Care/Day Moderate 35 Minutes [id number] 2. Diabetes (E11.9: Type 2 diabetes mellitus without complications) On long-acting and short-acting insulin. Ordered: Sbsq Hospital Care/Day Moderate 35 Minutes 04832 3. Factor V Leiden (D68.51: Activated protein C resistance) Not on anticoagulation chronically. Ordered: Sbsq Hospital Care/Day Moderate 35 Minutes 09628 4. LINA (generalized anxiety disorder) (F41.1: Generalized anxiety disorder) On fluoxetine. Ordered: Sbsq Hospital Care/Day Moderate 35 Minutes 43589 5. GERD (gastroesophageal reflux disease) (K21.9: Gastro-esophageal [...] made to ensure accuracy. However inadvertent computerized graphics software engineer errors may be present. Beatriz Green. [...] 06:02:00) Lymph Auto: 35.8 % (08/14/24 06:02:00) Webster Auto: 6.3 % (08/14/24 06:02:00) Eos Auto: 2.1 % (08/14/24 06:02:00) Basophil Auto: 1 % (08/14/24 06:02:00) Neutro Absolute: 3.8 E9/L (08/14/24 06:02:00) Lymph Absolute: 2.5 E9/L (08/14/24 06:02:00) Webster Absolute: 0.4 E9/L (08/14/24 06:02:00) Eos Absolute: 0.1 E9/L (08/14/24 06:02:00) Basophil Absolute: 0.1 E9/L (08/14/24 06:02:00) Glucose Lvl: 162 mg/dL (08/14/24 06:02:00) BUN: 11 mg/dL (08/14/24 06:02:00) Creatinine: 1 mg/dL (08/14/24 06:02:00) eGFR: 78 mL/min/1.73 m2 (08/14/24 06:02:00) BUN/Creat Ratio: 11 (08/14/24 06:02:00) Sodium Lvl: 139 (more content not included)...[facility] HospitalComment on above:Result Comment: Electronically Signed By: BENI GREWAL, Beatriz\.br\Date and Time Signed: 08/14/24 12:15 [id number] NoteProgress Note-Physician Assessment/Plan 29-year-old female with insulin-dependent [...] Ordered: Sbsq Hospital Care/Day Moderate 35 Minutes 36687 2. Diabetes (E11.9: Type 2 diabetes mellitus without complications) On long-acting and short-acting insulin. Ordered: [facility]bsq Hospital Care/Day Moderate 35 Minutes 18645 3. Factor V Leiden (D68.51: Activated protein C resistance) Not on anticoagulation chronically. Ordered: Sbsq Hospital Care/Day Moderate 35 Minutes 27680 4. LINA (generalized anxiety disorder) (F41.1: Generalized anxiety disorder) On fluoxetine. Ordered: Sbsq Hospital Care/Day Moderate 35 Minutes 91097 5. GERD (gastroesophageal reflux disease) (K21.9: Gastro-esophageal [...] made to ensure accuracy. However inadvertent computerized graphics software engineer errors may be present. Beatriz Green. [...] 06:02:00) Lymph Auto: 35.8 % (08/14/24 06:02:00) Webster Auto: 6.3 % (08/14/24:02:00) Eos Auto: 2.1 % (08/14/24:02:00) Basophil Auto: 1 % (08/14/24:02:00) Neutro Absolute: 3.8 E9/L (08/14/24 06:02:00) Lymph Absolute: 2.5 E9/L (08/14/24 06:02:00) Webster Absolute: 0.4 E9/L (08/14/24 06:02:00) Eos Absolute: 0.1 E9/L (08/14/24 06:02:00) Basophil Absolute: 0.1 E9/L (08/14/24 06:02:00) Glucose Lvl: 162 mg/dL (08/14/24 06:02:00) BUN: 11 mg/dL (08/14/24 06:02:00) Creatinine: 1 mg/dL (08/14/24 06:02:00) eGFR: 78 mL/min/1.73 m2 (08/14/24 06:02:00) BUN/Creat Ratio: 11 (08/14/24 06:02:00) Sodium Lvl: 139 (more content not included)...[facility] HospitalComment on above:Result Comment: Electronically Signed By: BENI GREWAL, Beatriz\.br\Date and Time Signed: 08/14/24 09:31 [id number] NoteHistory and Physical Basic Information Time of [...] 4.9 E12/L (08/13/24 09:31:00) HGB: 15.1 gm/dL (08/13/24) Hct: 42.3 % (08/13/24:) MCV: 86.1 fL (08/13/24:) MCH: 30.7 pg (08/13/24:) MCHC: 35.6 gm/dL (08/13/24:) RDW: 13.6 % (08/13/24) Platelet: 342 E9/L (08/13/24) MPV: 8.7 fL (08/13/24) Neutro Auto: 68.8 % (08/13/24) Lymph Auto: 24.8 % (08/13/24) Webster Auto: 3.9 % Low (08/13/24) Eos Auto: 1.3 % (08/13/24) Basophil Auto: 1.2 % (08/13/24) Neutro Absolute: 7.1 E9/L (08/13/24) Lymph Absolute: 2.5 E9/L (08/13/24) Webster Absolute: 0.4 E9/L (08/13/24) Eos Absolute: 0.1 E9/L (08/13/24) Basophil Absolute: 0.1 E9/L (08/13/24:) Glucose Lvl: 244 mg/dL High (08/13/24) BUN: 11 mg/dL (08/13/24:) Creatinine: 0.8 mg/dL (08/13/24:) eGFR: 102 mL/min/1.73 m2 (08/13/24) BUN/Creat Ratio: 14 (08/13/24:) Sodium Lvl: 139 mmol/L (08/13/24::) Potassium Lvl: 4 mmol/L (08/13/24::00) Chloride: 105 mmol/L (08/13/24:31:00) CO2: 24 mmol/L (08/13/24:31:00) AGAP: 14 mEq/L (08/13/24::00) Calcium Lvl: 9.5 mg/dL (08/13/24::00) Alk Phos: 85 Int._Unit/L (08/13/24:31:00) ALT: 34 Int._Unit/L (08/13/24::00) AST: 29 Int._Unit/L (08/13/24::) Total Protein: 7.4 gm/dL (08/13/24::) Albumin Lvl: 4.3 gm/dL (08/13/24::) Globulin: 3.1 gm/dL (08/13/24::) A/G Ratio: 1.4 (08/13/24::) Bili Total: 0.4 mg/dL (08/13/24::) Bili Direct: 0 mg/dL (08/13/24::) Bili Indirect: 0.4 mg/dL (08/13/24::) Lipase Lvl: 80 unit/L High (08/13/24::) UA Spec Desc: Clean Catch (08/13/24 09:22:00) UA Color: Colorless Abnormal (08/13/24 09:22:00) UA Clarity: Clear (08/13/24:22:00) UA Spec Grav: 1.036 (08/13/24:22:00) UA pH: 5.5 (08/13/24:22:00) UA Protein: Negat (08/13/24:22:00) UA Glucose: 4+ Abnormal (08/13/24:22:00) UA Ketones: Negat (08/13/24:22:00) UA Bili: Negat (08/13/24:22:00) UA Blood: Negat (08/13/24 09:22:00) UA Nitrite: Negat (08/13/24 09:22:00) UA Urobilinogen: Negat (11/21/24 09:22:00) UA Leuk Est: Negat (08/13/24 09:22:00) Beta hCG Ql: NEGATIVE1 (08/13/24 09:31:00) Assessment/Plan 1. Gastroparesis (K31.84: Gastroparesis) - Adm observation - Continue home Motegrity, Reglan once home med rec is completed - IVP Zofran - C/S GI - we apprecia (more content not included)...[facility] Comment on above:Result Comment: Electronically Signed By: Darlene Parson\.br\Date and Time Signed: 08/13/2417:23 EST\.br\Electronically Co-Signed By: BENI GREWAL, Beatriz\.br\Date and Time Co-Signed: 08/13/2417:40 [id number] History of Present illness Narrative* Yossi Golden MD - 08/11/2024 12:17 PM EST Associated Problem(s): Nonalcoholic fatty liver Follow with GI. * Yossi Golden MD - 08/11/2024 12:17 PM ESTAssociated Problem(s): Class 2 severe obesity due to excess calories with serious comorbidity and body mass index (BMI) of 37.0 to 37.9 in adult (CMS/HCC) Weight loss indicated * Yossi Golden MD - 08/11/2024 12:16 PM ESTAssociated Problem(s): Type 2 diabetes mellitus with hyperglycemia, with long-term current use of insulin ([facility]/HCC) BS improved and A1C 7.0. Follow with [...] hyperglycemia, with long-term current use of insulin ([facility]) BS improved and A1C 7.0. Follow with endo. Diabetic gastroparesis associated with type 2 diabetes mellitus ([facility]) - Primary Symptoms unchanged and continue medication. Follow with GI. Nonalcoholic fatty liver Follow with GI. Class 2 severe obesity due to excess calories with serious comorbidity and body mass index (BMI) of37.0 to 37.9 in adult ([facility]) Weight loss indicated documented in this encounterSt. Joseph Medical [id number] Evaluation + Plan note Extracted from: Title:ED Note Author:Phan Sandy DO Date: Gastroparesis (K31.84: Gastr oparesis) Orders: dicyclomine, 20 mg = 2 mL, Injection, IntraMuscular, Once, Stop date 08/07/24 11:15:00 EST, STAT, Start date 08/07/24 11:15:00 EST, 08/07/24 11:15:00 EST dicyclomine, 20 mg = 1 tab(s), Oral, TID, X 7 day(s), # 21 tab(s), Refills(s) 0, Pharmacy: [facility] [id number], 172, cm, 08/07/24 9:14:00 EST, Height/Length Dosing, [...] day(s), # 10 tab(s), Refills(s) 0, [id number], 172, cm, 08/07/24 9:14:00 EST, Height/Length Dosing, 111.2, kg, 08/07/24 9:14:00 EST, Weight Dosing pantoprazole, 40 mg = 10 mL, Injection, IV Push, Once, Stop date 08/07/24 9:30:00 EST, STAT, Start date 08/07/24 9:30:00 EST, 08/07/24 9:30:00 EST pantoprazole, 40 mg = 1 tab(s), Oral, Daily, X 30 day(s), # 30 tab(s), Refills(s) 0, Pharmacy: [facility] [id number], 172, cm, 08/07/24 9:14:00 EST, Height/Length Dosing, [...] Date:08/10/2024 10:30:00 AM Scheduled Provider:Aly Beverly MD Location:[facility] [place] Digestive Health Appointment Type:[facility] Follow Up Future Scheduled Tests Radiology* NM Gastric Emptying Study 05/25/24 [facility] 11-15-2024 Hospital Discharge instructions Follow Up Care 08/07/2024 09:06:44 With:Aly Beverly Address: Matthias Guardado, [facility] [address] [address] [phone] Business (1) When:08/10/2024 11:52:10 With:YOSSI GOLDEN Address: [address] [place] [address] Business (1) When:Within 3 Day(s) [facility] 11-15-2024 Hospital Discharge instructions Patient Education 08/06/2024 23:51:56 Abdominal Pain, Adult, Nloc-bj-Seoc Abdominal Pain, Adult Many things can cause belly (abdominal) pain. In most cases, belly pain is not a serious problem and can be watched and treated at home. But in some cases, it can be serious. Your doctor will try to find the cause of your belly pain. Follow these instructions at home: Medicines Take czor-tex-yajfmeg and prescription medicines only as told by [...] provider. Document Revised: 06/26/2023 Document Reviewed: 06/26/2023 [employer] Patient Education 2023 [employer]. Follow Up Care 08/06/2024 19:02:06 With:Aly Beverly Address: [facility] [address], [address] [address] [phone] Business (1) When:08/09/2024 Comments:Call to schedule a follow-up appointment with your dry wall applicator in the next 2 to 3 days. Return to ED with any new or worsening symptoms. With:YOSSI GOLDEN Address: [address] [place] [address] Business (1) When:Within 3 Day(s) [facility] 11-15-2024 NoteED Patient Education Note Gastroenterology Abdominal Pain, Adult Many things can cause belly (abdominal) pain. In most cases, belly pain is not a serious problem and can be watched and treated at home. But in some cases, it can be serious. Your doctor will try to find the cause of your belly pain. Follow these instructions at home: Medicines ??? Take imbc-oyr-omreubk and prescription medicines only as told by [...] provider. Document Revised: 06/26/2023 Document Reviewed: 06/26/2023 [employer] Patient Education ? 2023 [employer].[facility] 08-06-2024 Evaluation + Plan noteExtracted from: Title:ED Note Author:Mouna Quintanilla PA-C te:08/06/24 Chronic abdominal pain (R10. 9: Unspecified [...] Date:08/10/2024 10:30:00 AM Scheduled Provider:Aly Beverly MD Location:[facility] [place] Digestive Health Appointment Type:[facility] Follow Up Future Scheduled Tests Radiology* AL Gastric Emptying Study 05/25/24 [facility] 11-14-2024 Hospital Discharge instructions* Discharge Instructions* Michael Solo MD - 08/06/2024 12:15 PM EST [...] care or concern. documented in this [facility]Bon [facility] Discharge instructions Patient Education [...] vomiting. Follow these instructions at home: Take gaqn-kyb-bhwthnd and prescription medicines only as told by [...] provider. Document Revised: 01/16/2021 Document Reviewed: 01/16/2021 [employer] Patient Education 2023 [employer]. Follow Up Care 07/29/2024 18:44:08 With:YOSSI GOLDEN Address: [address] [place], [place] [address] [address] Business (1) When:08/01/2024 20:03:02 [facility] 11-06-2024 NoteED Patient Education Note Gastroenterology Gastroparesis [...] Follow these instructions at home: ??? Take wfjx-qzh-yrdhyvw and prescription medicines only as told by [...] and loss of ap (more content not included)...[facility]11-06-[facility] Evaluation + Plan noteExtracted from: Title:ED Note Author:Yulissa ESCOBAR, Artem Flores te:07/29/24 Epigastric abdominal pain (R 10.13: Epigastric [...] Date:08/10/2024 10:30:00 AM Scheduled Provider:Aly Beverly MD Location:[facility] [place] Digestive Health Appointment Type:[facility] Follow Up Future Scheduled Tests Radiology* AL Gastric Emptying Study 05/25/24 [facility] 10-17-2024 History of Present illness Narrative* Yossi [...] liver Follow with GI. documented in this encounterSt. Joseph Medical [id number] History of Present illness Narrative* Brooke Elmore RN - 07/08/2024 1:25 PM EDT Manager Primary Care went over discharge instructions with pt at this time. Pt verbalized understanding and denies further questions. IV removed and dressing applied. Pt walked down to car for discharge via pt request. Pt belongings in hand. * Rob Knutson RD, LD - 07/08/2024 8:46 AM EDT [...] loss Fluid Accumulation: No significant fluid accumulation Terminal Supervisor Strength: Not Performed Nutrition Assessment: Predicted suboptimal [...] Measures: Height: 172.7 cm (5' 8 ) [place] Body Weight (IBW): 140 lbs (64 kg) [...] Used for Energy Requirements: Current Energy (kcal/day): 7887-5131 (15-18) Weight Used for Protein Requirements: [place] Protein (g/day): 70-83 (1.1-1.3) Method Used for [...] this time Rob Knutson RD, TRUDY Contact: [phone] * Aissatou Salcedo APRN - DEMARCUS - [...] 10.4 Last 3 Blood Glucose: Recent Labs 07/07/2418 07/08/24 0525 GLUCOSE 210* 173* Comprehensive Metabolic Profile: Recent Labs 07/07/2418 07/08/24 0525 NA 141 140 K 4.3 4.3 [...] Gastroparesis No Narcotics Nutrition status: morbid obesity Reel System Operator consult initiated Hospital Prophylaxis: DVT: none Stress Ulcer: PPI Disposition: Shared decision making: All test results, treatment options and disposition options were discussed with the patient today Social determinants of health that may impact management: none Code status: Full Code Disposition: Discharge plan is home MIPS Advanced Care Planning documentation: [x] I have [...] the patient's medical record. [DOES NOT SATISFY [facility] PERFORMANCE] Aissatou Salcedo APRN - DEMARCUS , OSMAR, PARK MAINTENANCE TECHNICIAN-C [facility] Medicine 07/08/2024, 7:31 AM Associated attestation - Dedra Pineda MD - 07/08/2024 11:53 AM EDT Attending Supervising Physician s Attestation Statement I have personally evaluated and examined the patient dtkt-ld-pmrc in conjunction with the nurse practitioner. I agree with management and disposition of the patient. Examined and Reviewed plan of care with PARK MAINTENANCE TECHNICIAN. Directions and discussion about care and plans. [...] Elmore RN - 07/08/2024 7:05 AM EDT Manager Primary Care to bedside to complete morning assessment. Upon [...] RPH - 07/07/2024 3:00 PM EDT Per [facility] approved formulary policy, SGLT2 Inhibitors are not [...] questions or concerns. Thank you. Vandana Pittman [facility], [facility]/PharmD 07/07/2024 2:58 PM documented in this encounterBon [facility] Hospital course Narrative* Aissatou Salcedo, PREP COOK - SALESPERSON FLOWERS - 07/08/2024 11:15 AM EDT Discharge Summary [...] of gastroparesis and does follow with a dry wall applicator in [place] and is scheduled to see him in [...] PCP and had a refill on her [place] but did not help. She denied diarrhea. Last bowel movement was two days ago. Patient does use marijuana. Patient's workup in the emergency room including lab work and urinalysis were negative. No radiology studies are completed howeverbrandyn had a CT of the abdomen on [...] today she will follow up with her dry wall applicator as an outpatient is scheduled Consultants: none [...] MG tablet Commonly known as: PROTONIX Pen [place] 3/16 31G X 5 MM Misc 1 each [...] applicable) PATEL/ARB in CHF: NA Statin in AL: NA ASA in AL: NA Statin in CVA: NA Antiplatelet in CVA: NA Total time spent on discharge services: 40 minutes Including the following activities: Evaluation and Management of patient Discussion with patient and/or surrogate about current care plan Coordination with Case Management and/or Yeast Cake Cutter Coordination of care with Consultants (if applicable) Coordination of care with Receiving Facility Physician (if applicable) Completion of DME forms (if applicable) Preparation of Discharge Summary Preparation of Medication Reconciliation Preparation of Discharge Prescriptions Signed: Aissatou Salcedo APRN - OSMAR TRACY, PARK MAINTENANCE TECHNICIAN-C 07/08/2024, 11:15 AM Associated attestation - Dedra Pineda MD - 07/08/2024 11:53 AM EDT Attending Supervising Physician s Attestation Statement I have personally evaluated and examined the patient ufcz-eh-cuoh in conjunction with the nurse practitioner. I agree with management and disposition of the patient. Examined and Reviewed plan of care with PARK MAINTENANCE TECHNICIAN. Directions and discussion about care and plans. [...] Dedra Pineda MD documented in this encounterBon [facility] Hospital Discharge instructions Patient Education [...] Follow these instructions at home: Medicines Take dmzd-hzm-vhydqkr and prescription medicines only as told by [...] provider. Document Revised: 06/26/2023 Document Reviewed: 06/26/2023 [employer] Patient Education 2023 [employer]. Follow Up Care 07/05/2024 17:40:24 With:Aly Beverly Address: [address] [place] [address], [address] [phone] Business (1) When:07/08/2024 Comments:Call to schedule a follow-up appointment with the dry wall applicator in the next 2 to 3 days. Use the metoclopramide as needed for gastroparesis symptoms. Return to ED with any new or worsening symptoms. With:YOSSI GOLDEN Address: [facility] [place] [address] Business (1) When:Within 3 Day(s) [facility] 10-13-2024 NoteED Patient Education Note Gastroenterology Abdominal [...] these instructions at home: Medicines ? Take tmqp-nqn-gahgois and prescription medicines only as told by [...] provider. Document Revised: 06/26/2023 Document Reviewed: 06/26/2023 Elsevier Patient Education ? 2023 HengZhi.[facility] 06-23-2024 NotePatient Education Materials Name: Gael Ruby Current Date: 06/23/2024 15:04:56 [place] : 1995 The following sheet(s) are the Patient Education Leaflets for Gael Ruby Diabetes office visit Breakfast: Jardiance + glipizide 10 mg Lunch: Dinner: Bedtime glipizide 10 mg + Lantus 25 units May call or stop by office for CGM/glucometer download and review for instrution on further med adjustment. Health Maintenance Goals Blood sugar goals ? A1c goal less than 7% to prevent terminal supervisor complications that high sugar can lead to [...] developing sores, blisters, cracks, nailbed concerns. See sql server developer for toenail trimming and promptly for any [...] ? Low-fat or nonfat milk, corrage cheese, zimbabwean yogurt, cheese FIBER: Fiber goal over 25 [...] ? cup Ice Cream or Sherbet ? [place] Muffin ? large Baked Potato (3 ounces) [...] cream Sweet bakery goods (more content not included)...[facility] 06-21-2024 Hospital Discharge instructions Patient Education 06/20/2024 [...] vomiting. Follow these instructions at home: Take iqgg-ngo-quwxuqy and prescription medicines only as told by [...] provider. Document Revised: 01/16/2021 Document Reviewed: 01/16/2021 [employer] Patient Education 2023 RingRang Follow Up Care 06/20/2024 18:43:23 With:YOSSI GOLDEN Address: [address] [place] [address] Business (1) When:Within 3 Day(s) [facility] 09-28-2024 NoteED Patient Education Note Gastroenterology Gastroparesis [...] Follow these instructions at home: ? Take krab-myj-woseopv and prescription medicines only as told by [...] and low-fiber forms of (more content not included)...[facility]09-28-2024 Evaluation + Plan note Extracted from: Title:ED Note Author:Tonny Butler DO Date :06/20/24 Epigastric abdominal pain (R 10.13: [...] Tests Radiology* NM Gastric Emptying Study 05/25/24 [facility] 09-22-2024 Notept to ed for evaluation of unresolved cough for 7 days s/p zpak, one home dose of cough med and nebulizer tx. pt also complaint that cough is painful and her gastroparesis is making her have abdominal pain. Electronically signed by James Peralta 06/14/24 15:[address] [facility] Tele[facility] Note* Telephone Encounter - Yossi Golden MD - 06/09/2024 4:00 PM EDT Unclear what patient felt but possibilities include cyst or even stool. CT normal and no abnormalities noted on abdominal wall. Recommend monitor. [facility] [id number] Telephone encounter Note* Telephone Encounter - Yossi Golden MD - 06/09/2024 4:00 PM EDT ----- Message from Lyssa Lake sent at 06/09/2024 2:37 PM EDT ----- Regarding: Patient felt a mass Gael Ruby had a CT done at [facility] yesterday. She was lying on the floor today and felt amass on the right side of her stomach about mid-way down. The mass felt fluid-filled and hard. It is not hot. Her number is [phone]. [facility] [id number] Miscellaneous Notes* Telephone Encounter - Yossi Golden [...] Gael Ruby had a CT done at [facility] yesterday. She was lying on the floor today and felt amass on the right side of her stomach about mid-way down. The mass felt fluid-filled and hard. It is not hot. Her number is [phone]. documented in this encounterSt. Joseph Medical [id number] Evaluation + Plan note Extracted from: Title:ED [...] q6hr, # 12 tab(s), Refills(s) 0, Pharmacy: [facility] [id number], 173, cm, 06/09/24 2:42:00 EDT, Height/Length Dosing, [...] Nausea/Vomiting, # 6 EA, Refills(s) 0, Pharmacy: [facility] [id number], 173, cm, 06/09/24 2:42:00 EDT, Height/Length Dosing, 115.4, kg, 06/09/24 2:42:00 EDT, Weight Dosing Sodium Chloride 0.9% intravenous solution, 1,000 mL, Soln-IV, IV, Once, Stop date 06/09/24 3:02:00 EDT, STAT, Start date 06/09/24 3:02:00 EDT, Infuse over 61, minute(s) sucralfate, 1 gm = 1 tab(s), Oral, QID, X 7 day(s), # 28 tab(s), Refills(s) 0, Pharmacy: [facility] [id number], 173, cm, 06/09/24 2:42:00 EDT, Height/Length Dosing, 115.4, kg, 06/09/24 2:42:00 EDT, Weight Dosing Basic Metabolic Panel Beta hCG Qual CBC w/ Auto Diff eGFR Hepatic Function Panel Lipase Level UA with Cult Rflx Future Appointments Appointment Date:06/18/2024 10:30:00 AM Scheduled Provider: Location:[facility] Surgical Services Appointment Type:Surgery FT Future Scheduled Tests Radiology* NM Gastric Emptying Study 05/25/24 [facility] 09-17-2024 Hospital Discharge instructions Patient Education 06/09/2024 [...] vomiting. Follow these instructions at home: Take bjmf-eqy-hnaeqoh and prescription medicines only as told by [...] provider. Document Revised: 01/16/2021 Document Reviewed: 01/16/2021 [employer] Patient Education 2023 HengZhi. 06/09/2024 05:22:38 Abdominal Pain, Adult, Rbqc-ap-Saxl Abdominal Pain, Adult Many things can cause belly (abdominal) pain. In most cases, belly pain is not a serious problem and can be watched and treated at home. But in some cases, it can be serious. Your doctor will try to find the cause of your belly pain. Follow these instructions at home: Medicines Take nxsi-nig-qmpkjxh and prescription medicines only as told by [...] provider. Document Revised: 06/26/2023 Document Reviewed: 06/26/2023 [employer] Patient Education 2023 HengZhi. Follow Up Care 06/09/2024 02:28:25 With:YOSSI GOLDEN Address: [address] [place] [address] Business (1) When:06/12/2024 05:13:40 Comments:You can use the nausea medication as prescribed as needed for nausea and vomiting. Please follow-upwith your primary care doctor in the next 2 to 3 days for further evaluation and management. [facility] 09-17-2024 NoteED Patient Education Note Gastroenterology Gastroparesis [...] Follow these instructions at home: ? Take qnws-svd-yqzwiin and prescription medicines only as told by [...] and low-fiber forms of (more content not included)...[facility]09-16-2024 History of Present illness Narrative* Yossi Golden [...] associated with type 2 diabetes mellitus (CMS/HCC) Continued symptoms and stop trulicity. Start norco [...] norco PRN for pain. Relevant Medications HYDROcodone-acetaminophen (Barnstead) 5-325 MG tablet documented in this encounterSt. Joseph Medical [id number] NoteDischarge Summary Admission and Discharge Information Admit [...] individual diagnosis Procedure History section (2017), section (2015), Bilateral oophorectomy, section, [...] He has been seen multiple times at [facility], not admitted, usually medicated and then discharged [...] Gastroparesis) Consult GI: -I spoke with Dr. Beverly this a.m. via phone: Provided prescription for Zofran [...] restricted diet and recommendation to follow-up with tool lapper hand that can be arranged through her PCP [...] be reviewed and discussed with PCP or business operations coordinator MD once the hospital cake press operator is able to reach him/her. I [...] made to ensure accuracy, however, inadvertently computerized graphics software engineer mistakes may be present. Significant Findings No qualifying data available. Services Consulted Consult to GI - Ordered -- 05/23/24 3:20:00 EDT, Severe gastroparesis, Consult and Co-manage Consult to Office Engineer - Ordered -- 05/23/24 3:10:42 EDT Physical [...] CRM, Discharge Diet Discharge (more content not included)...[facility] HospitalComment on above:Result Comment: Electronically Signed By: Tessie YORK\.br\Date and Time Signed: 05/24/24 13:33 EDT\.br\Electronically Co-Signed By: Chandrakant GREWAL, Byron Hough\.br\Date and Time Co-Signed: 06/01/24 07:13 [id number] Hospital Discharge instructions* Discharge Instructions* Nilda Rich, - 05/26/2024 2:59 PM EDT You are [...] care or concern. documented in this encounterBON BARROW NEUROLOGICAL INSTITUTENGUYEN C[facility] LUTHERAN [id number] Evaluation + Plan note Future Scheduled Tests Radiology* NM Gastric Emptying Study 05/25/24 [facility] 09-01-2024 Hospital Discharge instructions Patient Education 05/24/2024 13:22:38 Obesity, Adult, Uzbn-ed-Gjyg Obesity, Adult Obesity is having too much [...] food choices, such as grocery stores and YadaHome markets. What are the signs or symptoms? The [...] eat. ?How much exercise you get. Take gosp-klv-kjivyms and prescription medicines only as told by [...] provider. Document Revised: 04/17/2022 Document Reviewed: 04/17/2022 [employer] Patient Education 2023 HengZhi. 05/24/2024 13:22:38 Gastroparesis Gastroparesis Gastroparesis is a [...] vomiting. Follow these instructions at home: Take gacb-tzg-zacelfs and prescription medicines only as told by [...] provider. Document Revised: 01/16/2021 Document Reviewed: 01/16/2021 [employer] Patient Education 2023 HengZhi. 05/24/2024 13:22:38 DASH Eating Plan DASH Eating [...] Dairy Whole or 2% milk, cream, and euni-rtk-nrtc. Whole or full-fat cream cheese. Whole-fat or [...] more information National Heart, Lung, and Blood Molena (NHLBI): nhlbi.nih.gov British Heart Association (AHA): heart.org Academy of Nutrition and Dietetics: eatright.org National Kidney Foundation (NKF): kidney.org This information is not intended to replace advice given to you by your health care provider. Make sure you discuss any questions you have with your health care provider. Document Revised: 09/26/2023 Document Reviewed: 09/26/2023 [employer] Patient Education 2023 HengZhi. 05/24/2024 13:22:38 Abdominal Bloating Abdominal Bloating When [...] drinks. ?Hard candy. ?Chewing gum. Medicines Take xjwq-dkp-wguzhih and prescription medicines only as told by [...] provider. Document Revised: 04/11/2021 Document Reviewed: 04/11/2021 [employer] Patient Education 2023 HengZhi. 05/24/2024 13:22:38 Acute Pain, Adult Acute Pain, [...] Follow these instructions at home: Medicines Take orig-szw-fxyrnih and prescription medicines only as told by [...] pain is severe. ?Do not take other whpa-kno-ufjbxkp pain medicines in addition to prescription pain [...] to keep your urine pale yellow. Take nhgl-qeu-rvkzozf or prescription medicines. Eat foods that are [...] provider. Document Revised: 04/03/2023 Document Reviewed: 04/03/2023 [employer] Patient Education 2023 HengZhi. Follow Up Care 05/22/2024 21:24:08 With:Aly Beverly Address: [address] [place] [address], [facility] [address] [address] [phone] Business (1) When:7 to 10 days Comments:Call for followup appointment With:YOSSI GOLDEN Address: [address] [place] [phone] Business (1) When:3 to 5 days Comments:Call for followup appointment [facility] 08-31-2024 Evaluation + Plan noteExtracted from: Title:Inpatient [...] EGD and colonoscopy with Dr. Gardner in [place] December 26, 2022: Reported distal esophagitis and [...] Tests Radiology* NM Gastric Emptying Study 05/25/24 [facility] 08-31-2024 NoteProgress Note-Physician Appreciate GI consult. Patient [...] Therapeutic lifestyle modification changes in the outpatient settingPromedica Bay Park HospitalComment on above:Result Comment: Electronically Signed By: Luis Villalobos DO\Date and Time Signed: 05/23/24 13:49 [id number] Note Consultation Note Patient: GAEL RUBY Age: 28 years Sex: Female : 1995 [...] EGD and colonoscopy with Dr. Henao in [place] December 26, 2022: Reported distal esophagitis and [...] Once PRN Blood glucose, Routine, Start date 243:23:00 EDT Insulin Lispro Sliding Scale: 0-10 Unit(s), [...] Oral, q6hr PRN Pain, Routine, Start date 243:20:00 EDT, 05/23/24 3:20:00 EDT heparin 5000 units/mL [...] Last Charted Temp Oral 36.9 DegC (MAY 23:) Heart Rate Monitored 80 bpm (MAY 23:) SBP H 143 mmHg (MAY 23:30) DBP H 92 mmHg (MAY 23:) Weight 110.9 kg (MAY 23 05:18) BMI 37.17 (MAY 23:30) Impression and Plan This is a 28-year-old [...] EGD and colonoscopy with Dr. Gardner in [place] December 26, 2022: Reported distal esophagitis and [...] narcotics and anticholinergic (more content not included)... [facility] HospitalComment on above:Result Comment: Electronically Signed By: Beto GREWAL, Aly Whitten\.br\Date and Time Signed: 05/23/24 11:53 [id number] NoteGetWell Understands Education Yes [place] Education Video Diabetes: 3 Steps to Problem-Solving [facility] Learning Participants [facility]08-31-2024 NoteGetUpmc [facility] Understands Education Yes [place] Education Video Avoiding Infections in the Hospital [facility] Learning Participants [facility]08-31-2024 NoteHistory and Physical Basic Information Admit Date/Time:05/23/2024 [...] She has been seen multiple times at [facility]. Has not been admitted. usually medicated [...] E9/L High (05/22/24 22:24:00) RBC: 4.8 E12/L (05/22/24 22:24:00) HGB: 14.7 gm/dL (05/22/24 22:24:00) Hct: 42.9 % (05/22/24 22:24:00) MCV: 88.6 fL (05/22/24 22:24:00) MCH: 30.3 pg (05/22/24 22:24:00) MCHC: 34.2 gm/dL (05/22/24 22:24:00) RDW: 13.7 % (05/22/24 22:24:00) Platelet: 308 E9/L (05/22/24 22:24:00) MPV: 8.6 fL (05/22/24 22:24:00) Neutro Auto: 52.1 % (05/22/24 22:24:00) Lymph Auto: 39.5 % (05/22/24:24:00) Webster Auto: 5.3 % (05/22/24 22:24:00) Eos Auto: 2.3 % (05/22/24:24:00) Basophil Auto: 0.8 % (05/22/24:24:00) Neutro Absolute: 6.1 E9/L (05/22/24:24:00) Lymph Absolute: 4.6 E9/L High (05/22/24:24:00) Webster Absolute: 0.6 E9/L (05/22/24:24:00) Eos Absolute: 0.3 E9/L (05/22/24 22:24:00) Basophil Absolute: 0.1 E9/L (05/22/24 22:24:00) Glucose Lvl: 136 mg/dL (05/22/24:24:00) BUN: 11 mg/dL (05/22/24 22:24:00) Creatinine: 0.7 mg/dL (05/22/24 22:24:00) eGFR: 119 mL/min/1.73 m2 (05/22/24:24:00) BUN/Creat Ratio: 16 (05/22/24 22:24:00) Sodium Lvl: 139 mmol/L (05/22/24 22:24:00) Potassium Lvl: 4.1 mmol/L (05/22/24:24:00) Chloride: 108 mmol/L (05/22/24 22:24:00) CO2: 22 mmol/L (05/22/24 22:24:00) AGAP: 13 mEq/L (05/22/24 22:24:00) Calcium Lvl: 9.7 mg/dL (05/22/24 22:24:00) Alk Phos: 100 Int._Unit/L High (05/22/24 22:24:00) ALT: 46 Int._Unit/L (05/22/24 22:24:00) AST: 34 Int._Unit/L (05/22/24 22:24:00) Total Protein: 8 gm/dL High (05/22/24 22:24:00) Albumin Lvl: 4.5 gm/dL (05/22/24 22:24:00) Globulin: 3.5 gm/dL (05/22/24 22:24:00) A/G Ratio: 1.3 (05/22/24 22:24:00) Bili Total: [...] Type 2 diabetes mellitus (more content not included)...[facility] HospitalComment on above:Result Comment: Electronically Signed By: Melodie GREWAL, Naima\.br\Date and Time Signed: 05/23/24 03:43 [id number] Hospital Discharge instructions* Discharge Instructions* Charly Seay [...] sent through Care Everywhere. * Chest Pain (North Korean) * Chest Pain: Musculoskeletal ([place] Korean) documented in this encounterB[facility] Hospital Discharge instructions* Discharge Instructions* Fabrice Bosch MD - 01/04/2024 9:39 PM EDT [...] sent through Care Everywhere. * Viral Infections (North Korean) documented in this [facility]03-03-2024 Hospital Discharge instructions* Discharge Instructions* Samy Walker MD - 11/24/2023 12:02 AM EST The cause of your pain was not identified. Your evaluation, including imaging, was reassuring. I suspect scar tissue, possibly related to prior gynecologic surgeries, may be the cause. Please follow-up with both your INTELLIGENCE SENIOR SERGEANT and your 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 Return to the ED for worsening pain, continued vomiting or any other concerns. Use caution while taking Barnstead (hydrocodone). It may cause drowsiness. Do not drive or perform dangerous activity while taking this medication and do not take with alcohol or other sedatives. * Attachments The following attachments cannot be sent through Care Everywhere. * Abdominal Pain ([place]) documented in this [facility] Hospital Discharge instructions* Discharge Instructions* Samy Walker MD - 10/14/2023 9:21 AM EST Return to the ED for difficulty breathing, development of persistent vomiting or any other concerns. Begin taking the flu treatment medication as prescribed. Use ibuprofen and/or acetaminophen, as directed on the ofxf-pgh-zbpmxld container, as needed for pain or fever control. * Attachments The following attachments cannot be sent through Care Everywhere. * Influenza (North Korean) documented in this encounterR[facility]12-13-2023 History of Present illness Narrative* Bridgett Zambrano PTA - 09/04/2023 8:45 AM EST [facility] Inpatient/Observation/Outpatient Rehabilitation Date: 09/04/2023 Patient Name: Gael Ruby [] Inpatient Acute/Observation [x] Outpatient : 1995 10/04/23 Plan of Care/Recert ends [x] Pt cancelled due to: [] No Reason Given [x] Sick/ill [] Other: Therapist/Principal Ios Developer will attempt to see this patient, at our earliest opportunity. Bridgett Zambrano, KRISTOFER Date: 09/04/2023 documented in this encounterRIVERSIDE [facility]07-01-[facility]23 Hospital Discharge instructions* Discharge Instructions* Darryl Ragsdale MD - 03/23/2023 7:16 PM EDT Make sure to drink plenty of water. Use Phenergan as needed for nausea or vomiting. Follow-up with primary care provider for reevaluation. Please return immediately should you develop any worsening symptoms or any acute concerns. * Attachments The following attachments cannot be sent through Care Everywhere. * Fainting ([place] Korean) documented in this encounterR[facility]05-29-2023 Hospital Discharge instructions* Discharge Instructions* Samy [...] be sent through Care Everywhere. * Diarrhea (North Korean) * Hyperglycemia: General Info ([place] Korean) documented in this encounterR[facility] Work Phone: 1(588) 810-702604-05-2023 NoteOPERATIVE NOTE OPERATION DATE: 12/26/2022 PREOPERATIVE DIAGNOSIS: [...] good condition. CC: Yossi Golden M.D.[facility]04-03-2023 Hospital Discharge instructions* Discharge Instructions* Anahi Phelps DO - 12/24/2022 5:01 PM EDT Follow-up with your doctor next week if your symptoms continue. Otherwise, use your albuterol inhaler as needed given your underlying history of asthma. * Attachments The following attachments cannot be sent through Care Everywhere. * Chest Pain ([place] Korean) documented in this encounterB[facility] [employer] Work Phone: 1(382) 315-631802-20-2023 History of Present illness Narrative* Aliyah Rangel [...] Accompanied by a responsible adult. Yes * OSMAR Doty CRNA - 10/29/2022 3:20 PM EST Chart reviewed and discussed with PAT. GUARDADO [...] EKG not needed. documented in this encounterBON BARROW NEUROLOGICAL INSTITUTERent My Items [facility] SYSTEMEnsenda Work Phone: 1(402) 679-860002-20-2023 Hospital Discharge instructions* Discharge Instructions* Aliyah Rangel [...] [place] in [address] Figueredo -- [place] office [phone] [place] office [phone] documented in this encounterCARDINAL CUSHING HOSPITALCaterna Phone: 1(529) 640-601202-09-2023 Hospital Discharge instructions* Discharge Instructions* Ricardo Garcia PA-C - 11/01/2022 4:48 PM EST Follow-up with INTELLIGENCE SENIOR SERGEANT as scheduled. Take Zofran for nausea. Take Barnstead for pain as directed. No driving or alcohol or Tylenol with Barnstead. Promptly return to emergency department for new, changing, worsening of symptoms or other concerns. * Attachments The following attachments cannot be sent through Care Everywhere. * Chronic Pelvic Pain: Female ([place] Korean) documented in this encounterCARDINAL CUSHING HOSPITALCaterna Phone: [phone]) 316-717701-06-2023 Hospital Discharge instructions* Discharge Instructions* Oliver Arenas MD - 09/28/2022 1:11 AM EST Please follow-up with your INTELLIGENCE SENIOR SERGEANT and your primary care physician. Return to the ER if you have anymore pain, fever, chills, sweats, nausea vomiting is hard to treat. Take the medication as prescribed. * Attachments The following attachments cannot be sent through Care Everywhere. * Endometriosis (North Korean) * Abdominal Pain: Frequent ([place] Korean) [facility] this [facility] Phone: [phone]) 833-481610-16-2022 Hospital Discharge instructions* Discharge Instructions* Ricardo Garcia PA-C - 07/08/2022 7:32 PM EDT Follow-up with primary care doctor 7 to 10 days for reevaluation. Start steroids and antibiotics tomorrow as you have already been given a dose here in the emergency department. Promptly return to emergency department for new, changing, worsening of symptoms or other concerns. documented in this encounterBON BARROW NEUROLOGICAL INSTITUTECaterna Phone: 1(202) 628-577504-14-2022 Hospital Discharge instructions* Instructions* Renard Watkins MD - 01/04/2022 Please continue use ice ibuprofen Tylenol as needed. * Attachments The following attachments cannot be sent through Care Everywhere. * Musculoskeletal Pain ([place] Korean) documented in this encounterFostoria City HospitalVisibiz Phone: 1(336) 784-516306-28-2021 History of Present illness Narrative* Aliyah Rangel [...] reviewed over the phone. documented in this [facility] Phone: 1(502) 304-297506-28-2021 Hospital Discharge instructions* Instructions* Aliyah Rangel RN [...] call if excessive. Call the office at [phone] ([place]) [phone] ([place]) for an appointment in 2 weeks. documented in this encounterRemotium Phone: evaluation + Plan note Future Appointments Appointment Date:12/04/2022 01:20:00 PM Scheduled Provider:Yajaira GARDNER MD Location:[facility] Appointment Type:[facility] General Surgery [place] Evaluation + Plan note Future Appointments Appointment Date:06/18/2024 10:30:00 AM Scheduled Provider: Location:[facility] Surgical Services Appointment Type:Surgery FT Future Scheduled Tests Radiology* NM Gastric Emptying Study 05/25/24 [facility] Evaluation + Plan note Future Appointments Appointment Date:08/10/2024 10:30:00 AM Scheduled Provider:Aly Beverly MD Location:[facility] Appointment Type:[facility] Follow Up Future Scheduled Tests Radiology* NM Gastric Emptying Study 05/25/24 [facility] Evaluation + Plan note Future Appointments Appointment Date:09/02/2024 02:15:00 PM Scheduled Provider: Location:[facility] Surgical Services Appointment Type:Surgery FT Appointment Date:09/10/2024 12:00:00 PM Scheduled Provider:Aly Beverly MD Location:[facility] Appointment Type:BAD Follow Up Future Scheduled Tests Radiology* NM Gastric Emptying Study 05/25/24 [facility] Evaluation note* Diagnosis Post-op pain- Primary Other acute postoperative pain Menorrhagia with regular cycle Excessive or frequent menstruation documented in this encounter [employer] Phone: evaluation note* Diagnosis Preop testing Preoperative examination, unspecified documented in this encounter [employer] Phone: evaluation note* Diagnosis Abdominal pain, epigastric documented in this encounter [employer] Phone: evalapckir note* Diagnosis Acute bronchitis, unspecified organism- Primary documented in this encounter [employer] Phone: evaluation note* Diagnosis Cough- Primary Acute upper respiratory infection Acute upper respiratory infections of unspecified site Encounter for laboratory testing for COVID-19 virus documented in this encounter [employer] Phone: [email or web address] note* Diagnosis Hyperglycemia- Primary Other abnormal glucose documented in this encounter [employer] Phone: evaluation note* Diagnosis Acute upper respiratory infection- Primary Acute upper respiratory infections of unspecified site Positive test examination or test, positive result documented in this encounter [employer] Phone: [email or web address] note* Diagnosis Musculoskeletal pain- Primary Mylagia and myositis, unspecified documented in this encounter [employer] Phone: evaluation note* Diagnosis Generalized abdominal pain- Primary Abdominal pain, generalized Diarrhea, unspecified type Nausea Nausea alone documented in this encounter [employer] Phone: evaluation note* Diagnosis Bronchitis- Primary Bronchitis, not specified as acute or chronic documented in this encounter [facility] Phone: [email or web address] note* Diagnosis Lower abdominal pain- Primary Abdominal pain, other specified site Endometriosis Endometriosis, site unspecified History of PCOS Personal history of other genital system and obstetric disorders Morbid obesity due to excess calories (HCC) Dysmenorrhea documented in this encounter [employer] Phone: [email or web address] note* Diagnosis Endometriosis- Primary Endometriosis, site unspecified Dysmenorrhea documented in this encounter [facility] Phone: evaluation note* Diagnosis Chronic pelvic pain in female- Primary Unspecified symptom associated with female genital organs Dysmenorrhea documented in this encounter [employer] Phone: [email or web address] note* Diagnosis Post-op pain- Primary Other acute postoperative pain Dysmenorrhea Post-op pain Other acute postoperative pain Complication of surgical procedure Unspecified complication of procedure, not elsewhere classified Bladder adhesions Other specified disorders of bladder Uterine adhesions Intrauterine synechiae Adhesion of omentum Peritoneal adhesions (postoperative) (postinfection) documented in this encounter [facility] Phone: evaluation note* Diagnosis Chest pain, unspecified type- Primary documented in this encounter [facility] [email or web address] Phone: evaluation note* Diagnosis Hyperglycemia- Primary Other abnormal glucose Diarrhea, unspecified type [facility]* Diagnosis Syncope, unspecified syncope type- Primary documented in this encounter [facility] note* Diagnosis Lower abdominal pain- Primary Abdominal pain, other specified site documented in this encounter [facility] note* Diagnosis Diarrhea, unspecified type- Primary Viral illness Unspecified viral infection, in conditions classified elsewhere and of unspecified site documented in this encounter [facility] note* Diagnosis Chest pain, unspecified type- Primary documented in this encounter [facility] note* Diagnosis Chronic abdominal pain- Primary Abdominal pain, unspecified site Diarrhea, unspecified type documented in this encounter [facility] note* Diagnosis Diabetic gastroparesis (HCC) Type II or unspecified type diabetes mellitus with neurological manifestations, not stated as uncontrolled documented in this encounter [facility] note* Diagnosis Epigastric pain- Primary Abdominal pain, epigastric documented in this encounter [facility] note* Diagnosis Generalized anxiety disorder (CMS/HCC)- Primary Generalized anxiety disorder DDD (degenerative disc disease), lumbar Degeneration of lumbar or lumbosacral intervertebral disc [facility] Diagnosis Nausea and vomiting- Primary Nausea with vomiting Generalized abdominal pain Abdominal pain, generalized Type 2 diabetes mellitus (HCC) Type II or unspecified type diabetes mellitus without mention of complication, not stated as uncontrolled Gastroparesis documented in this encounter [facility] note* Diagnosis Type 2 diabetes mellitus with hyperglycemia, with long-term current use of insulin (CMS/[facility])- Primary Major depressive disorder, recurrent, moderate (CMS/HCC) Major depressive disorder, recurrent episode, moderate Generalized anxiety disorder (CMS/HCC) Generalized anxiety disorder Abscess of axilla, left Gastroesophageal reflux disease without esophagitis Esophageal reflux Diabetic gastroparesis associated with type 2 diabetes mellitus ([facility])- Primary Type II or unspecified type diabetes mellitus with neurological manifestations, not stated as uncontrolled DDD (degenerative disc disease), lumbar Degeneration of lumbar or lumbosacral intervertebral disc Type 2 diabetes mellitus with hyperglycemia, with long-term current use of insulin (CMS/HCC) Immunodeficiency due to conditions classified elsewhere ([facility]) Gastro-esophageal reflux disease without esophagitis Body mass [...] gastroparesis associated with type 2 diabetes mellitus ([facility]/HCC)- Primary Type II or unspecified type diabetes mellitus with neurological manifestations, not stated as uncontrolled Type 2 diabetes mellitus with hyperglycemia, with long-term current use of insulin ([facility]/HCC) Major depressive disorder, recurrent, moderate (CMS/HCC) Major depressive disorder, recurrent episode, moderate Nonalcoholic fatty liver [facility] Diagnosis Generalized abdominal pain- Primary Abdominal pain, generalized [facility] Diagnosis Type 2 diabetes mellitus with hyperglycemia, with long-term current use of insulin ([facility]/HCC)- Primary Major depressive disorder, recurrent, moderate (CMS/HCC) Major depressive disorder, recurrent episode, moderate Generalized anxiety disorder ([facility]/HCC) Generalized anxiety disorder Abscess of axilla, left Gastroesophageal reflux disease without esophagitis Esophageal reflux Diabetic gastroparesis associated with type 2 diabetes mellitus ([facility])- Primary Type II or unspecified type diabetes mellitus with neurological manifestations, not stated as uncontrolled DDD (degenerative disc disease), lumbar Degeneration of lumbar or lumbosacral intervertebral disc Type 2 diabetes mellitus with hyperglycemia, with long-term current use of insulin ([facility]) Immunodeficiency due to conditions classified elsewhere ([facility]) Gastro-esophageal reflux disease without esophagitis Body mass index (BMI) 38.0-38.9, adult Diabetic gastroparesis associated with type 2 diabetes mellitus ([facility]/HCC)- Primary Type II or unspecified type diabetes mellitus with neurological manifestations, not stated as uncontrolled Type 2 diabetes mellitus with hyperglycemia, with long-term current use of insulin ([facility]) Major depressive disorder, recurrent, moderate (CMS/HCC) Major depressive disorder, recurrent episode, moderate Diabetic gastroparesis associated with type 2 diabetes mellitus ([facility]/HCC)- Primary Type II or unspecified type diabetes mellitus with neurological manifestations, not stated as uncontrolled Type 2 diabetes mellitus with hyperglycemia, with long-term current use of insulin ([facility]) Major depressive disorder, recurrent, moderate (CMS/HCC) Major depressive disorder, recurrent episode, moderate Nonalcoholic fatty liver Diabetic gastroparesis associated with type 2 diabetes mellitus ([facility]/HCC)- Primary Type II or unspecified type diabetes mellitus with neurological manifestations, not stated as uncontrolled Type 2 diabetes mellitus with hyperglycemia, with long-term current use of insulin ([facility]) Class 2 severe obesity due to excess calories with serious comorbidity and body mass index (BMI) of 37.0 to 37.9 in adult ([facility]) Nonalcoholic fatty liver documented in this encounter [facility]* Diagnosis Diabetic gastroparesis associated with type 2 diabetes mellitus ([facility]/HCC)- Primary Type II or unspecified type diabetes mellitus with neurological manifestations, not stated as uncontrolled Type 2 diabetes mellitus with hyperglycemia, with long-term current use of insulin ([facility]) Major depressive disorder, recurrent, moderate ([facility]/HCC) Major depressive disorder, recurrent episode, moderate documented in this encounter [facility]* Diagnosis Nausea and vomiting, unspecified vomiting type- Primary [facility] Diagnosis Gastroparesis- Primary [facility] Diagnosis Type 2 diabetes mellitus with hyperglycemia, with long-term current use of insulin ([facility])- Primary Major depressive disorder, recurrent, moderate ([facility]) Major depressive disorder, recurrent episode, moderate Generalized anxiety disorder ([facility]) Generalized anxiety disorder Abscess of axilla, left Gastroesophageal reflux disease without esophagitis Esophageal reflux Diabetic gastroparesis associated with type 2 diabetes mellitus ([facility]/HCC)- Primary Type II or unspecified type diabetes mellitus with neurological manifestations, not stated as uncontrolled DDD (degenerative disc disease), lumbar Degeneration of lumbar or lumbosacral intervertebral disc Type 2 diabetes mellitus with hyperglycemia, with long-term current use of insulin ([facility]) Immunodeficiency due to conditions classified elsewhere ([facility]) Gastro-esophageal reflux disease without esophagitis Body mass index (BMI) 38.0-38.9, adult Diabetic gastroparesis associated with type 2 diabetes mellitus ([facility]/HCC)- Primary Type II or unspecified type diabetes mellitus with neurological manifestations, not stated as uncontrolled Type 2 diabetes mellitus with hyperglycemia, with long-term current use of insulin ([facility]) Major depressive disorder, recurrent, moderate ([facility]/HCC) Major depressive disorder, recurrent episode, moderate Diabetic gastroparesis associated with type 2 diabetes mellitus ([facility]/HCC)- Primary Type II or unspecified type diabetes mellitus with neurological manifestations, not stated as uncontrolled Type 2 diabetes mellitus with hyperglycemia, with long-term current use of insulin ([facility]) Major depressive disorder, recurrent, moderate ([facility]/HCC) Major depressive disorder, recurrent episode, moderate Nonalcoholic fatty liver Diabetic gastroparesis associated with type 2 diabetes mellitus ([facility])- Primary Type II or unspecified type diabetes mellitus with neurological manifestations, not stated as uncontrolled Type 2 diabetes mellitus with hyperglycemia, with long-term current use of insulin ([facility]) Class 2 severe obesity due to excess calories with serious comorbidity and body mass index (BMI) of 37.0 to 37.9 in adult ([facility]) Nonalcoholic fatty liver Type 2 diabetes mellitus with hyperglycemia, with long-term current use of insulin ([facility])- Primary Diabetic gastroparesis associated with type 2 diabetes mellitus ([facility]) Type II or unspecified type diabetes mellitus with neurological manifestations, not stated as uncontrolled Dyslipidemia ([facility]) Other and unspecified hyperlipidemia Nonalcoholic fatty liver Major depressive disorder, recurrent, moderate ([facility]/HCC) Major depressive disorder, recurrent episode, moderate Class 2 severe obesity due to excess calories with serious comorbidity and body mass index (BMI) of 37.0 to 37.9 in adult ([facility]) Type 2 diabetes mellitus with other specified complication ([facility]) [facility] Diagnosis Influenza A- Primary Influenza with other respiratory manifestations documented [facility] Diagnosis Acute pancreatitis without infection or necrosis- Primary Acute pancreatitis, unspecified complication status, unspecified pancreatitis type Gastroparesis Type 2 diabetes mellitus (HCC) Type II or unspecified type diabetes mellitus without mention of complication, not stated as uncontrolled [facility]* Diagnosis Type 2 diabetes mellitus with hyperglycemia, with long-term current use of insulin ([facility])- Primary Major depressive disorder, recurrent, moderate ([facility]) Major depressive disorder, recurrent episode, moderate Generalized anxiety disorder ([facility]) Generalized anxiety disorder Abscess of axilla, left Gastroesophageal reflux disease without esophagitis Esophageal reflux Diabetic gastroparesis associated with type 2 diabetes mellitus ([facility])- Primary Type II or unspecified type diabetes mellitus with neurological manifestations, not stated as uncontrolled DDD (degenerative disc disease), lumbar Degeneration of lumbar or lumbosacral intervertebral disc Type 2 diabetes mellitus with hyperglycemia, with long-term current use of insulin ([facility]) Immunodeficiency due to conditions classified elsewhere ([facility]) Gastro-esophageal reflux disease without esophagitis Body mass index (BMI) 38.0-38.9, adult Diabetic gastroparesis associated with type 2 diabetes mellitus ([facility])- Primary Type II or unspecified type diabetes mellitus with neurological manifestations, not stated as uncontrolled Type 2 diabetes mellitus with hyperglycemia, with long-term current use of insulin ([facility]) Major depressive disorder, recurrent, moderate ([facility]) Major depressive disorder, recurrent episode, moderate Diabetic gastroparesis associated with type 2 diabetes mellitus ([facility])- Primary Type II or unspecified type diabetes mellitus with neurological manifestations, not stated as uncontrolled Type 2 diabetes mellitus with hyperglycemia, with long-term current use of insulin ([facility]) Major depressive disorder, recurrent, moderate ([facility]) Major depressive disorder, recurrent episode, moderate Nonalcoholic fatty liver Diabetic gastroparesis associated with type 2 diabetes mellitus ([facility])- Primary Type II or unspecified type diabetes mellitus with neurological manifestations, not stated as uncontrolled Type 2 diabetes mellitus with hyperglycemia, with long-term current use of insulin ([facility]) Class 2 severe obesity due to excess calories with serious comorbidity and body mass index (BMI) of 37.0 to 37.9 in adult ([facility]) Nonalcoholic fatty liver Type 2 diabetes mellitus with hyperglycemia, with long-term current use of insulin ([facility])- Primary Diabetic gastroparesis associated with type 2 diabetes mellitus ([facility]) Type II or unspecified type diabetes mellitus with neurological manifestations, not stated as uncontrolled Dyslipidemia ([facility]) Other and unspecified hyperlipidemia Nonalcoholic fatty liver Major depressive disorder, recurrent, moderate ([facility]) Major depressive disorder, recurrent episode, moderate Class 2 severe obesity due to excess calories with serious comorbidity and body mass index (BMI) of 37.0 to 37.9 in adult ([facility]/HCC) Type 2 diabetes mellitus with other specified complication (CMS/HCC) Generalized anxiety disorder (CMS/HCC) Generalized anxiety disorder [facility]* Diagnosis Intractable abdominal pain- Primary Abdominal pain, unspecified site Acute pancreatitis, unspecified complication status, unspecified pancreatitis type Gastroparesis Type 2 diabetes mellitus (HCC) Type II or unspecified type diabetes mellitus without mention of complication, not stated as uncontrolled Chronic pancreatitis (HCC) Chronic pancreatitis documented in this encounter [facility] note* Diagnosis Gastroparesis- Primary Diabetic gastroparesis (HCC) (HCC) Type II or unspecified type diabetes mellitus with neurological manifestations, not stated as uncontrolled Chronic idiopathic constipation Unspecified constipation documented in this encounter [facility] note* Diagnosis Gastroparesis- Primary documented in this encounter [facility] note* Diagnosis Gastroparesis- Primary documented in this encounter [facility] note* Diagnosis Gastroparesis- Primary Gastroesophageal reflux disease, unspecified whether esophagitis present Functional constipation Other constipation documented in this encounter [facility] note* Diagnosis Gastroparesis- Primary documented in this encounter [facility] note* Diagnosis Pre-op evaluation- Primary Preoperative [...] 2 diabetes mellitus (HCC) Assessment: Follows with [facility] or PCP No primary care provider on file. - Fair control -Current medications: Glipizide Jardijurgen, lantus -BS checks at home range about [...] Per outside records review Echo 2019 in completed for tachycardia: Summary Global left [...] 128/87 10/16/2024 123/68 [facility] Diagnosis Right upper quadrant abdominal pain- Primary Abdominal pain, right upper quadrant [facility]* Diagnosis Type 2 diabetes mellitus with hyperglycemia, with long-term current use of insulin ([facility])- Primary Major depressive disorder, recurrent, moderate (CMS/HCC) Major depressive disorder, recurrent episode, moderate Generalized anxiety disorder ([facility]/HCC) Generalized anxiety disorder Abscess of axilla, left Gastroesophageal reflux disease without esophagitis Esophageal reflux Diabetic gastroparesis associated with type 2 diabetes mellitus ([facility]/HCC)- Primary Type II or unspecified type diabetes mellitus with neurological manifestations, not stated as uncontrolled DDD (degenerative disc disease), lumbar Degeneration of lumbar or lumbosacral intervertebral disc Type 2 diabetes mellitus with hyperglycemia, with long-term current use of insulin (CMS/HCC) Immunodeficiency due to conditions classified elsewhere ([facility]) Gastro-esophageal reflux disease without esophagitis Body mass index (BMI) 38.0-38.9, adult Diabetic gastroparesis associated with type 2 diabetes mellitus ([facility]/HCC)- Primary Type II or unspecified type diabetes mellitus with neurological manifestations, not stated as uncontrolled Type 2 diabetes mellitus with hyperglycemia, with long-term current use of insulin ([facility]/HCC) Major depressive disorder, recurrent, moderate (CMS/HCC) Major depressive disorder, recurrent episode, moderate Diabetic gastroparesis associated with type 2 diabetes mellitus (CMS/HCC)- Primary Type II or unspecified type diabetes mellitus with neurological manifestations, not stated as uncontrolled Type 2 diabetes mellitus with hyperglycemia, with long-term current use of insulin ([facility]/HCC) Major depressive disorder, recurrent, moderate (CMS/HCC) Major depressive disorder, recurrent episode, moderate Nonalcoholic fatty liver Diabetic gastroparesis associated with type 2 diabetes mellitus (CMS/HCC)- Primary Type II or unspecified type diabetes mellitus with neurological manifestations, not stated as uncontrolled Type 2 diabetes mellitus with hyperglycemia, with long-term current use of insulin (CMS/HCC) Class 2 severe obesity due to excess calories with serious comorbidity and body mass index (BMI) of 37.0 to 37.9 in adult (CMS/HCC) Nonalcoholic fatty liver Type 2 diabetes mellitus with hyperglycemia, with long-term current use of insulin (CMS/HCC)- Primary Diabetic gastroparesis associated with type 2 diabetes mellitus (CMS/HCC) Type II or unspecified type diabetes mellitus with neurological manifestations, not stated as uncontrolled Dyslipidemia (CMS/HCC) Other and unspecified hyperlipidemia Nonalcoholic fatty liver Major depressive disorder, recurrent, moderate (CMS/HCC) Major depressive disorder, recurrent episode, moderate Class 2 severe obesity due to excess calories with serious comorbidity and body mass index (BMI) of 37.0 to 37.9 in adult (CMS/HCC) Type 2 diabetes mellitus with other specified complication DDD (degenerative disc disease), lumbar Degeneration of lumbar or lumbosacral intervertebral disc [facility] Pre-op evaluation- Primary Preoperative examination, [...] Abdominal pain, generalized [facility] Diagnosis Right upper quadrant abdominal pain- Primary Abdominal pain, right upper quadrant [facility] Diagnosis Gastroparesis- Primary [facility] Diagnosis Pre-op evaluation- Primary Preoperative examination, [...] Episodic cannabis use [facility] Diagnosis Cough, unspecified type- Primary [facility] Diagnosis Abdominal pain, unspecified abdominal location- Primary Gastroparesis Constipation, unspecified constipation type documented [facility]* Diagnosis Constipation, unspecified constipation type- Primary documented in this encounter [facility] course Narrative No data available for this section [facility] General [facility] Discharge instructions* Attachments The following attachments cannot be sent through Care Everywhere. * Bronchitis ([place]) documented in this [employer] Phone: Hospital Discharge instructions* Attachments The following attachments cannot be sent through Care Everywhere. * URI (Upper Respiratory Infection) ([place] Korean) * Coronavirus Disease (COVID-19): General Info ([place]) documented in this [employer] Phone: Hospital Discharge instructions* Instructions* Samy Walker MD - 12/05/2021 Return to the ED for persistently elevated blood sugar, development of vomiting, abdominal pain, fever or other concerns. documented in this [employer] Phone: Hospital Discharge instructions* Attachments The following attachments cannot be sent through Care Everywhere. * URI (Upper Respiratory Infection): Viral ([place]) documented in this [employer] Phone: Hospital Discharge instructions* Instructions* Samy Walker [...] sent through Care Everywhere. * Abdominal Pain ([place]) * Nausea and Vomiting ([place]) * Diarrhea ([place]) [facility] Discharge instructions* Attachments The following attachments cannot be sent through Care Everywhere. * Endometriosis ([place]) [facility] Dis[facility] instructions No data available for this section [facility] General [facility] Discharge instructions* Attachments The following attachments cannot be sent through Care Everywhere. * Abdominal Pain ([place]) [facility]* Attachments The following attachments cannot be sent through Care Everywhere. * Abdominal Pain ([place]) * Gastroparesis ([place]) * Nausea and Vomiting ([place]) [facility]* Attachments The following attachments cannot be sent through Care Everywhere. * Cough ([place]) [facility] No data available for this section [facility] [place] Reason for referral (narrative) , bariatric surgery eval at [facility] Referred by: Beto GREWAL, dr ziyad Ohara Referred by: Beto GREWAL, Aly Whitten [facility] Discharge Instructions * Instructions* Rod Conte MD - 05/19/2019 Have US done to rule out DVT done tomorrow as instructed * Attachments The following attachments cannot be sent through Care Everywhere. * Leg Pain ([place]) documented in this encounter* Attachments The following attachments cannot be sent through Care Everywhere. * Nausea and Vomiting ([place]) documented in this encounter* Instructions* Efra Vazquez [...] be sent through Care Everywhere. * Trichomoniasis ([place]) documented in this encounter* Instructions* Reina Magaña RN - 02/01/2020 OUTPATIENT DISCHARGE Ramila Courtney [employer] ACTIVITY LIMITATIONS: ( x )Up and about [...] through Care Everywhere. * : Abdominal Pain ([place]) * Dizziness ([place]) documented in this encounter* Instructions* Krystyna Pino PA-C - 12/14/2019 Call to arrange follow-up with your INTELLIGENCE SENIOR SERGEANT. Continue to monitor your blood sugar and your blood pressure. * Attachments The following attachments cannot be sent through Care Everywhere. * : Abdominal Pain ([place]) documented in this encounter* Instructions* Elo Gamino RN - 02/26/2020 OUTPATIENT DISCHARGE Ananya Do [employer] [place] or Jean Dr. Boucher Ramila Courtney [employer] Hien Irving [employer] Ramila Bustillos [employer] [place] Val[place] [employer] ACTIVITY LIMITATIONS: ( x)Up and about as [...] RN - 03/29/2020 OUTPATIENT DISCHARG Ramila Courtney [employer] ACTIVITY LIMITATIONS: (x )Up and about as [...] RN - 04/08/2020 OUTPATIENT DISCHARGE Ramila Courtney [employer] ACTIVITY LIMITATIONS: ( x )Up and about [...] Follow-up with your OB doctor as specified. [facility] OB Department phone: Dr. Scooter Farfan [employer] Dr. Terell Elmore [address] [place] [address] or [place] DIET Eat a well balanced diet focusing on foods high in fiber and protein. Drink plenty of fluids especially water. To avoid constipation you may take a mild stool softener as recommended by your doctor or runner on. ACTIVITY Gradually increase your activity. Resume exercise regimen only after advice by your doctor or runner on. Avoid lifting anything heavier than a gallon of milk for SIX weeks. Avoid driving until your doctor or runner on has given their approval. Rise slowly from [...] of harming yourself or your infant. If will not stop crying, contact another adult for help or place infant in their crib on their back and [...] medications as recommended by your doctor or runner on for pain If you develop a warm, [...] vitamins as directed by your doctor or runner on. Refer to the booklet in the folder/binder for more information. If you feel you need more assistance or have questions, please call Debby Stanley IBCLC, outside sales consultant, at or the OB department to [...] they become loose or soiled. If used, Lee should be removed by your care provider. [...] in this encounter* Discharge Instr - Activity* Chapin Gurrola RN - 06/15/2020 12:35 PM EDT Increase activity, up walking. Use incentive spirometer 10 times every 2-4 hours * Discharge Instr - Diet* Chapin Gurrola RN - 06/15/2020 12:35 PM EDT General diet * Attachments The following attachments cannot be sent through Care Everywhere. * Blood Clots: Inpatient: Quick List ([place]) * Pulmonary Embolism ([place]) documented in this encounter* Attachments The following attachments cannot be sent through Care Everywhere. * Acute Concussion ([place]) * Head Injury: Closed: General Info ([place]) documented in this encounter* Attachments The following attachments cannot be sent through Care Everywhere. * Abdominal Pain ([place]) documented in this encounter* Instructions* Krystyna Pino PA-C - 09/17/2020 Call to arrange follow-up with back specialist listed below. * Attachments The following attachments cannot be sent through Care Everywhere. * Herniated Disc ([place]) documented in this encounter* Instructions* Patricia Recio [...] RN - 04/29/2020 OUTPATIENT DISCHARGE [facility] or Jean ACTIVITY LIMITATIONS: ( x)Up [...] sent through Care Everywhere. * Abscess: Skin ([place]) documented in this encounter* Discharge Instr - [...] Contact Information Primary Emergency Contact: MALENA RUBY Relation: Other Past Surgical History: Past Surgical History: Procedure Laterality Date SECTION 03/22/2016 CHOLECYSTECTOMY 03/29/2017 CHOLECYSTECTOMY, LAPAROSCOPIC N/A 03/29/2017 CHOLECYSTECTOMY LAPAROSCOPIC XI ROBOTIC performed by Anival Hinson IV, DO at [facility] OR CYSTOSCOPY 07-22-2012 DILATION AND CURETTAGE OF [...] active Resolved MRSA 03/30/16 03/30/16 Aissatou Yoder, NU 03/25/17 Sarahi Lockwood RN 03/05/2016 screening Nurse [...] (114.8 kg) Mental Status: {IP PT MENTAL STATUS:} IV Access: { DARREL IV ACCESS:409216165} Nursing Mobility/ADLs: Walking {CHP DME ADLs:953526891} Transfer {CHP DME ADLs:180910314} Bathing {CHP DME ADLs:575470792} Dressing {CHP DME ADLs:450785313} Toileting {CHP DME ADLs:042334653} Feeding {CHP DME ADLs:903520885} Maintenance Aide {CHP DME ADLs:982363649} Med Delivery { DARREL MED Delivery:933440121} Wound Care Documentation and Therapy: Incision 03/29/17 Abdomen (Active) Number of days: 851 Incision 03/29/17 Abdomen (Active) Number of days: 851 Elimination: Continence: Bowel: {YES / NO:} Bladder: {YES / NO:} Urinary Catheter: {Urinary Catheter:754931546} Colostomy/Ileostomy/Ileal Conduit: {YES / NO:} Date of Last BM: No intake or output data in the 24 hours ending 07/28/19 2245 No intake/output data recorded. Safety Concerns: { DARREL Safety Concerns:515142919} Impairments/Disabilities: { DARREL Impairments/Disabilities:263475959} Nutrition Therapy: Current Nutrition Therapy: { DARREL Diet List:896900455} Routes of Feeding: {CHP DME Other Feedings:959724035} Liquids: {Director Decision Support liquid thickness:31851} Daily Fluid Restriction: {CHP DME Yes amt example:679049127} Last Modified Barium Swallow with Video (Video Swallowing Test): {Done Not Done Date:} Treatments at the Time of Hospital Discharge: Respiratory Treatments: Oxygen Therapy: {Therapy; copd oxygen:53199} Ventilator: { CC Vent List:266967816} Rehab Therapies: {THERAPEUTIC INTERVENTION:6418648496} Weight Bearing Status/Restrictions: {[facility] Weight Bearin} Other Medical Equipment (for information only, NOT a DME order): {EQUIPMENT:927955813} Other Treatments: Patient's personal belongings (please select all that are sent with patient): {[facility] DME Belongings:559358433} RN SIGNATURE: {Esignature:002782173} CASE MANAGEMENT/SOCIAL WORK SECTION Inpatient Status Date: Readmission Risk Assessment Score: Readmission Risk Risk of Unplanned Readmission: 0 Discharging to Facility/ Agency Name: Address: Phone: Fax: Dialysis Facility (if applicable) Name: Address: Dialysis Schedule: Phone: Fax: Instructional Support Technician/Yeast Cake Cutter signature: {Esignature:704549797} PHYSICIAN SECTION Prognosis: {Prognosis:4902631221} Condition at Discharge: { Patient Condition:355371654} Rehab Potential (if transferring to Rehab): {Prognosis:4204691503} Recommended Labs or Other Treatments After Discharge: Physician Certification: I certify the above information and transfer of Gael Archibald is necessary for the continuing treatment of the diagnosis listed and that she requires {Admit to Appropriate Level of Care:83433} for {GREATER/LESS:640851769} 30 days. Update Admission H&P: {CHP DME Changes in HandP:028665156} PHYSICIAN SIGNATURE: {Esignature:200989554} * Additional Instructions* Efra Vazquez MD - [...] through Care Everywhere. * Ovarian Cyst: Functional ([place]) documented in this encounter* Instructions* Ana Solares RN - 04/02/2020 Home Undelivered Discharge Instructions After Discharge Orders: Future Appointments Date Time Provider Department Center 04/04/2020 9:40 AM Silvio Gr MD [facility] 04/27/2020 12:30 PM MACHINE DRILLER 1 Mat TOLPP Call if need a [...] swishes, or rolls. Call your physician or runner on if there have not been 10 kicks in 2 hours Call physician or runner on, return to Labor and Delivery, call 911, [...] Maker Lorraine Silva Other Secondary Decision Maker Date Activated Date [...] Documents on File Type Date Recorded Patient Legal Services Manager Expl anation Advance Directives and Living Will Power of Coverstitch Machine Operator Latest Code Status on File Code Status Date Activated Date Inactivated Comments Full Code 11/09/2017 12:12 PM 11/09/2017 6:13 PM Full Code 09/20/2017 2:44 AM 09/20/2017 4:37 PM Full Code 07/10/2017 2:26 AM 07/10/2017 7:34 PM Full Code 03/25/2017 12:49 AM 03/29/2017 8:50 PM Full Code 03/22/2016 7:40 AM 03/24/2016 6:02 PM Documents on File Type Date Recorded Patient Legal Services Manager Expl anation Advance Directives and Living Will Power of Coverstitch Machine Operator Latest Code Status on File Code Status [...] Documents on File Type Date Recorded Patient Legal Services Manager Expl anation ACP-Advance Directive ACP-Power of Coverstitch Machine Operator Latest Code Status on File Code Status Date Activated Date Inactivated Comments Full Code 04/29/2020 12:16 PM 04/29/2020 4:34 PM Full Code 04/07/2020 11:23 PM 04/08/2020 3:32 AM Full Code 02/26/2020 5:08 PM 02/26/2020 9:06 PM Full Code 02/01/2020 9:22 PM 02/01/2020 11:59 PM Documents on File Type Date Recorded Patient Legal Services Manager Expl anation ACP-Advance Directive ACP-Power of Coverstitch Machine Operator Latest Code Status on File Code Status [...] Name Relationship Healthcare Agent Relationship Communication Malena Garcia Flori Spouse Primary Decision Maker [phone] (Mobile) Lorraine Silva Other Secondary Decision Maker Date Activated Date Inactivated Comments 11/05/2024 2:35 AM Healthcare Agents on File Name Relationship Healthcare Agent Relationship Communication Malena Garcia Flori Spouse Primary Decision Maker [phone] (Mobile) Lorraine Silva Other Secondary Decision Maker Healthcare Agents on File Name Relationship Healthcare Agent Relationship Communication Malena Garcia Flori Spouse Primary Decision Maker [phone] (Mobile) Lorraine Silva Other Secondary Decision Maker Healthcare Agents on File Name Relationship Healthcare Agent Relationship Communication Malena Garcia Flori Spouse Primary Decision Maker [phone] (Mobile) Lorraine Silva Other Secondary Decision Maker Healthcare Agents on File Name Relationship Healthcare Agent Relationship Communication Malena Garcia Flori Spouse Primary Decision Maker [phone] (Mobile) Lorraine Silva Other Secondary Decision Maker Healthcare Agents on File Name Relationship Healthcare Agent Relationship Communication Malena Garcia Flori Spouse Primary Decision Maker [phone] (Mobile) Lorraine Silva Other Secondary Decision Maker Healthcare Agents on File Name Relationship Healthcare Agent Relationship Communication Malena Garcia Flori Spouse Primary Decision Maker [phone] (Mobile) Lorraine Silva Other Secondary Decision Maker Reason for Referral Status Reason Specialty Diagnoses / Procedures Referre d By Contact Referred To Contact Open Radiology Diagnoses Right leg pain Procedures VL DUP LOWER EXTREMITY VENOUS RIGHT Rod Conte MD [address] [place] [address] Status Reason Specialty Diagnoses / Procedures Referred By Contact Referred To Contact Pending Review Radiology Diagnoses RUQ pain Procedures US GALLBLADDER SAEIDQ Krystina Llanes MD [address] [place] [address] Status Reason Specialty Diagnoses / Procedures Referred By Contact Referred To Contact Not Required - Recondo Cardiology / EKG Diagnoses Palpitations Lightheadedness SOB (shortness of breath) Tachycardia Episodic lightheadedness Procedures Holter monitor 24 hour HC HOLTER MONITOR Silvio Gr MD [address] [place] [address] [facility] Ekg [address] [place] [address] Status Reason Specialty Diagnoses / Procedures Referred By Contact Referred To Contact Closed Cardiology / Echocardiography Diagnoses Palpitations Lightheadedness SOB (shortness of breath) Tachycardia Episodic lightheadedness Procedures Echo 2D w doppler w color complete HC 2D ECHO WITHOUT CONTRAST - WITH DOP/COLOR FLOW Silvio Gr MD [address] [place] [address] [facility] Echo [address] [place] [address] Status Reason Specialty Diagnoses / Procedures Referred By Contact Referred To Contact Closed Cardiology / EKG Diagnoses History of pre-eclampsia Palpitations LVH (left ventricular hypertrophy) Tachycardia Procedures Holter monitor 24 hour Silvio Gr MD [address] [place] [address] [facility] Ekg [address] [place] [address] Status Reason Specialty Diagnoses / Procedures Referred By Contact Referred To Contact Pending Review Radiology Diagnoses Abdominal pain, epigastric Procedures FL UGI W AIR CONTRAST Yossi Golden MD [address] [place] [address] Specialty Diagnoses / Procedures Referred By Contac t Referred To Contact Radiology Diagnoses Diabetic gastroparesis (HCC) Procedures NM GASTRIC EMPTYING Yossi Golden MD [address] [place] [address] Referral ID Status Reason Start Date Expiration Date Visits Re quested Visits Authorized [id number] Closed 04/29/2024 04/29/2025 1 1 History of [...] Verbalizes understanding, advised to follow up with outside sales consultant if necessary. * Diann Farfan APRN [...] on couch at bedside.Infant in nbn. * Ramila Elmore APRN - [...] group handout [x] Breastpump cleaning guidelines - CDC [x] & Safe Sleep handout - [facility] publication [x] Calling All Dads! Handout - [facility] publication [] Breast and Nipple Care - [facility] [] Breastmilk Collection & Storage - [facility] [] Breastpump Kit Care - [facility] [] Going Back to Work - [facility] [] Preventing Engorgement - [facility] Supplies given: [] [place], soap and basin for breastpump cleaning [] Insurance pump provided through [employer] [] Insurance pump provided through [facility] XPress Explained to patient, patient verbalizes understanding. Signed: Debby Stanley RN, BSN, IBCLC * Estephanie Ramilasky Colin, PREP COOK - CNM - 05/23/2020 7:02 AM EDT C/S Labor [...] 97.5 F (36.4 C) Oral 60 14 05/22/201899 137/88 56 14 100 % 05/22/201854 132/74 65 16 100 % 05/22/201849 (!) 141/80 65 18 100 % 05/22/20 [...] Mckeon RPH - 06/15/2020 12:[address] [facility] Inpatient Medication Education Note Patient admitted for PE. Medications reviewed with the patient include: Eliquis (patient education monograph provided), hydrocodone/acetaminophen, morphine, pantoprazole. Patient provided with Eliquis financial services associate coupons. Patient education provided when necessary to [...] - 06/14/2020 10:[address] Ybarra business operations coordinator hospitalist called for pain control as norco [...] deemed medically stable. [place] with her and their 3 small children ages a 4, 2 and . She notes good informal support network including her mother, mother in law and sister in law. Patient uses no DME but does have a rescue inhaler that she uses as needed. She doesnot work outside of her home but is employed by an [employer] in [place]. Patient isindependent with her ADL's and manages her own household. PCP is Dr. Golden. Patient reports having no difficulty with affording her medications. Discharge plan is home when stable. She does voice interest in pursuing medical directives but wants to review forms prior to executing. Copies of documents provided for her use. Patient is a 'Full Code' status at this time. DRAWING MACHINE OPERATOR to monitor for any/all needs and assist as appropriate. 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 Meal well taken this AM, however, [...] loss Fluid Accumulation: No significant fluid accumulation Terminal Supervisor Strength: Not Performed Estimated Daily Nutrient Needs: Energy (kcal): 2812-1827(18-22); Weight Used for Energy Requirements: Current Protein (g): 76-83(1.2-1.3); Weight Used for Protein Requirements: [place] Fluid (ml/day): 2200; Weight Used for Fluid Requirements: Current Nutrition Related Findings: obese Wounds: None Current Nutrition Therapies: DIET GENERAL; No Added Salt (3-4 GM) Anthropometric Measures: Height: 5' 8 (172.7 cm) Current Body Weight: 220 lb 3.2 oz (99.9 kg) Admission Body Weight: 215 lb (97.5 kg) Usual Body Weight: 260 lb (117.9 kg)(pregravid weight) [place] Body Weight: 140 lbs; % [place] Body Weight 157.3 % BMI: 33.5 Adjusted [...] Discharge Planning: Too soon to determine Contact: [id number] * Najma Sweeney RN - 06/14/2020 12:00 AM EDT Manager Primary Care gave patient a turkey lunch box. * Najma Sweeney RN - 06/13/2020 11:40 PM EDT Patient arrived in ICU room 307 from ER. Patient ambulated to bed safely. Patient rates chest pain 8/10. VS are WNL. Patient did state she would like her PCP to be notified of hospital admission, , number is in chart, will pass on to day shift. Manager Primary Care oriented patient to room and call light. 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 Objective Vision: [...] Hand General: 5/5 RUE Strength Comment: Grossly 5 AM-PAC Score AM-PAC Inpatient Daily Activity Raw Score: 24 (09/26/20 134) AM-PAC Inpatient ADL T-Scale Score : 57.54 (09/26/20 134) ADL Inpatient [facility] 0-100% Score: 0 (09/26/201344) ADL Inpatient CMS G-Code Modifier : CH (09/26/201344) Therapy Time Individual Concurrent Group Co-treatment Time In 0758 Time Out 0816 Minutes 18 Timed Code Treatment Minutes: 8 Minutes Debby Llanes OTR/L * Silvio Whittington, PT - 09/26/2020 12:01 PM EST Physical Therapy Facility/Department: [address] ORTHO/MED SURG Initial Assessment NAME: Gael [...] Ovary removal (06/2010); Tonsillectomy and adenoidectomy (02/2011); [place] tooth extraction (2009); laparoscopy (07-22-2012); Cystocopy (07-22-2012); [...] Forbes MD - 09/26/2020 9:00 AM EST [facility] CDU / OBSERVATION eNCOUnter Attending NOte I [...] gait, upper body weakness, and inability to grain picker an ambulation device; and she can ambulate only by pushing a walker instead of a lesser assistive device such as a cane, crutch, or standard walker. The need for this equipment was discussed with the patient and she understands and is in agreement. Murtaza Forbes MD Attending Emergency Physician * Edilia Bsutos RN - 09/26/2020 6:22 AM EST Taylor [...] Forbes MD - 09/25/2020 9:50 AM EST [facility] CDU / OBSERVATION eNCOUnter Attending NOte I [...] in the chart. Presents in transfer from [facility] secondary to back pain after picking up [...] 04/29/2020 1:30 PM EDT RN calls [facility] [employer] and reports that pt here, RN spoke [...] ports that Mondays she has ultrasounds in [place] and for NSTs weekly in [place]. Pt states she did not have this [...] as last time it gave her a MCDONNELL. * Ana Solares RN - 04/02/2020 10:[address] Uirbe given US results. * Ana Solares RN [...] Open Vascular Lab Diagnoses Leg swelling Procedures [facility] DUPLEX EXTREM VENOUS,UNI OR LTD Rod Conte MD [address] [place] [address] [place] [address] [facility] Vascular Lab [address] [place] [address] Reason Comments Leg Pain left lower leg [...] HC US ABDOMINAL LIMITED Krystina Llanes MD [address] [place] [address] [facility] Ultrasound [address] [place] [address] Reason Comments Dizziness Onset 1400, worse wi [...] hour HC HOLTER MONITOR Silvio Gr MD [address] [place] [address] [facility] Ekg [address] [place] [address] Status Reason Specialty Diagnoses / Procedures Referred By Contact Referred To Contact Closed Cardiology / Echocardiography Diagnoses Palpitations Lightheadedness SOB (shortness of breath) Tachycardia Episodic lightheadedness Procedures Echo 2D w doppler w color complete HC 2D ECHO WITHOUT CONTRAST - WITH DOP/COLOR FLOW Silvio Gr MD [address] [place] [address] [facility] Echo [address] [place] [address] Reason Comments Headache Reason Comments Abdominal Cramping Reason Comments Contractions Status Reason Specialty Diagnoses / Procedures Referred By Contact Referred To Contact Closed Cardiology / EKG Diagnoses History of pre-eclampsia Palpitations LVH (left ventricular hypertrophy) Tachycardia Procedures Holter monitor 24 hour Silvio Gr MD [address] [place] [address] [facility] [address] [place] [address] Reason Comments Non-stress Test Reason Comments Nausea Contractions Status Reason Specialty Diagnoses / Procedures Referre d By Contact Referred To Contact Diagnoses Gestational diabetes Repeat C/S Procedures KS DELIVERY ONLY SECTION Michael Helms MD [address] [facility] [address] [place] [address] [facility] Reason Comments Chest Pain right sided wal ches t pain started today Status Reason Specialty Diagnoses / Procedures Referre d By Contact Referred To Contact Diagnoses PE (pulmonary thromboembolism) (HCC) PE (pulmonary thromboembolism) (HCC) Dedra Pineda MD [address] [facility] [place] [address] [facility] Reason Comments Fall Onset 2 days ago, [...] Contact Diagnoses Lumbar radiculopathy Murtaza Forbes MD [facility] [place] [address] [facility] Reason Comments Abscess right groin, onset a pprox 1 week ago Reason Comments Abdominal Pain Right side, upper an d lower, radiating to back and epigastric area per pt. Onset yesterday Status Reason Specialty Diagnoses / Procedures Referre d By Contact Referred To Contact Diagnoses Menorrhagia MENORRHAGIA Procedures KS HYSTEROSCOPY,W/ENDO BX KS HYSTEROSCOPY,W/ENDOMETR IAL ABLATION DILATATION AND CURETTAGE HYSTEROSCOPY CAUTERY ABLATION-NOVASURE Maryam Bess F, DO [address] [place] [address] [facility] Status Reason Specialty Diagnoses / Procedures Referred By Contact Referred To Contact Pending Review Radiology Diagnoses Abdominal pain, epigastric Procedures FL UGI W AIR CONTRAST Yossi Golden MD [address] [place] [address] Reason Comments Cough onset 05/28, taking zp ack, negative covid. Reason Comments Cough Onset this AM, dry. Loss of taste/smell. 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 Denies head injuries, LOC [...] in October with Dr Uribe here at [facility]. Pain became severe earlier this evening along [...] Diagnoses Dysmenorrhea DYSMENORRHEA, PELVIC PAIN, DYSPAREUNIA Procedures KS LAPS TOTAL HYSTERECT 250 GM/< W/RMVL TUBE/OVARY HYSTERECTOMY VAGINAL LAPAROSCOPIC ROBOTIC, POSSIBLE BSO, POSSIBLE LAPAROSCOPIC COLPOPEXY Maryam Bess F, DO [address] [place] [address] [facility] [address] [place] [address] Referral ID Status Reason Start Date Expiration Date Visits Re quested Visits Authorized [id number] 1 1 Reason Comments Chest Pain Onset today, history of PE. History of recent surgery, hysterectomy, Nov 12, 2022 Shortness of Breath Reason Comments Hyperglycemia Patient's blood suga r was 463 at home. Reason Comments Fall [place] dizzy, LOC, fel l and hit head Dizziness Onset approx 30 min ago Reason Comments Abdominal Pain Right lower with wit h emesis FISHER, last bowel movement this afternoon Reason Comments Abdominal Pain Mid abd pain onset W ed with diarrhea and nausea. Pt states red [...] GASTRIC EMPTYING Yossi Golden MD [address] [place] [address] Referral ID Status Reason Start Date Expiration Date Visits Re quested Visits Authorized [id number] Closed 04/29/2024 04/29/2025 1 1 Reason Onset Date Comments Med Refill 06/23/2024 Reason Comments Abdominal Pain Nausea Specialty Diagnoses / Procedures Referred By Alie johnson Referred To Contact Diagnoses Nausea and vomiting Generalized abdominal pain Dedra Pineda MD [address] [facility], [place] [address] [facility] [address] [place] [address] Referral ID Status Reason Start Date Expiration Date Visits Re quested Visits Authorized [id number] 1 1 Reason Comments Follow-up 1 m [...] and constipations x1 week. Was seen at [facility] on Saturday for her gastroparesis. Has taken her home antiemetics with no relief. Reason Comments Abdominal Pain Patient with complai nt of ongoing gastroparesis pain, tonight pain worsening Specialty Diagnoses / Procedures Referred By Alie johnson Referred To Contact Diagnoses Intractable abdominal pain Acute pancreatitis, unspecified complication status, unspecified pancreatitis type Wilman Bains MD [address] [place] [address] [facility] [address] [place] [address] Referral ID Status Reason Start Date Expiration Date Visits Re quested Visits Authorized [id number] 1 1 Reason Comments Gastroparesis Reason Comments [...] CONSULT TO PAIN MGT OFFICE/OUTPATIENT NEW HIGH MDM 60 MINUTES Yajaira Lackey DO [facility] [address] [place] [address] Phone: tel: fax: Referral ID Status Reason Start Date Expiration Date V isits Requested Visits Authorized [id number] Closed PCP Requested Referral 02/02/2025 02/02/2026 1 1 Reason Comments Cough Back Pain mid Reason Comments Abdominal Pain Hx of gastroparesis. 8/10 pain across upper abdomen started this morning with nausea. Also c/o constipation Reason Comments Abdominal Pain Complains of lower a bd cramping and reports not hving bm after drink mag citrate Ordered Prescriptions (unrec ognized section and content) [...] the skin nightly 15 mL 2 10/21/2024 Prescription Sig Dispense Quantity Refills Last Filled Start Date End Date albuterol (PROVENTIL) (5 MG/ML) 0.5% nebulizer solution Take 0.5 mLs by nebulization every 6 hours as needed for Wheezing or Shortness of Breath 90 each 06/13/2025 benzonatate (TESSALON) 200 MG capsule Take 1 capsule by mouth 3 times daily as needed for Cough 20 capsule 06/13/2025 Prescription Sig Dispense Quantity Refills Last Filled Start Date End Date ondansetron (ZOFRAN-ODT) 4 MG disintegrating tablet Take 1 tablet by mouth 3 times daily as needed for Nausea or Vomiting 21 tablet 06/22/2025 Scheduled Active and Recently Administ ered Medications (unrecognized section and content) Medication Order 03/18/2021 03/19/2021 03/20/2021 acetaminophen (TYLENOL) tablet 650 mg (COMPLETED) 650 mg, Oral, ONCE, On Sat03/20/21 at 1245, For 1 dose, Maximum dose of acetaminophen is 4000 mg from all sources in 24 hours., Pre-op (day of surgery) 1300 (Given - Provid er: Vandaan Avitia RN) dimenhyDRINATE (DRAMAMINE) tablet 50 mg (COMPLETED) [...] Change - Provider: Naima Aj APRN - HEDGE FUND ACCOUNTANT)1456 (Stopped - Provider: Aliyah Rangel RN) PRN [...] Intra-op 1425 (Given - Provid er: Maryam Encinas DO) oxyCODONE-acetaminophen (PERCOCET) 5-325 MG per tablet 2 [...] dose, 5 years of Age or greater 2113 (Given - Provid er: Becca Elmore RCP) [...] Oral, EVERY 6 HOURS PRN, Starting on Sat01/04/22 at 1922, Until Discontinued, Pain Mild (1-3), [...] mg from all sources in 24 hours. 021 (Given - Provid er: Jessenia Ryan RN) ondansetron (ZOFRAN) injection 4 mg (COMPLETED) 4 mg, IntraVENous, ONCE, 1 dose, On 03/11/22 at 0115 0126 (Given - Provid er: Helen Esqueda RN) PRN Medication Order 03/09/2022 03/10/202203/1103/11/2022 iopamidol (ISOVUE-370) 76 % injection 75 mL [...] at 1847, Until 07/08/22 at 1851, Other 185 (Given - Provid er: Sarika Martin) Scheduled [...] be given over 10 to 15 minutes 2341 (New Bag - Provider: Mouna Olmos RN) 0035 (Stopped - Provider: Mouna Shah RN) hydrocodone-acetaminophen (NORCO) tablet 5-325 mg (STARTER PACK) This order is for a take home starter pack of medication. Please document Not Given with a reason of other on the MAR along with a comment of sent home with patient. 012 (Not Given - Provider: Mouna Olmos RN [...] hour of each other unless specifically ordered. 2254 (Given - Provider: Mouna Olmos RN) ondansetron (ZOFRAN) injection 4 mg (COMPLETED) 4 mg, IntraVENous, ONCE, 1 dose, On Emiliana 09/27/22 at 2100 210 (Given - Provider: Christy Tafoya RN) Scheduled [...] a comment of sent home with patient. 1745 (Not Given - Pr ovider: Katie Schofield [...] 650 mg, Oral, ONCE, 1 dose, On 11/12/22 at 0845, Maximum dose of acetaminophen is 4000 mg from all sources in 24 hours., Pre-op (day of surgery) 0841 (Given - Provid er: Christy Ching RN) ceFAZolin (ANCEF) 2000 mg in 0.9% sodium chloride 100 mL IVPB (COMPLETED) 2,000 mg, IntraVENous, PLANT TECHNICIAN/CONTROL ROOM OPERATOR TO O.R., 1 dose, On Sat11/12/22 at 0845, Antimicrobial Indications: Surgical Prophylaxis, Administer within 1 hour prior to incision., Pre-op (day of surgery) 0942 (New [facility] - Prov ider: Ana Ceron RN)1012 (Due: [...] 0843 (New Bag - Prov ider: Christy Ching, NU)1326 (Stopped - Provider: Aliyah Rangel RN) PRN [...] IntraMUSCular, ONCE, 1 dose, On Sat02/18/23 at 2044 2052 (Given - Provid er: Katarzyna Head RN) ondansetron (ZOFRAN) injection 4 mg (COMPLETED) 4 mg, IntraVENous, ONCE, 1 dose, On Sat02/18/23 at 1915 191 (Given - Provid er: Katarzyna Head RN) PRN Medication Order 02/16/2023 02/17/2023 02/18/2023 iopamidol (ISOVUE-370) 76 % injection 75 mL (COMPLETED) 75 mL, IntraVENous, IMG ONCE PRN, 1 dose, Starting on Sat02/18/23 at 2104, Until Sat02/18/23 at 2110, Other 2110 (Given - Provid er: Sarika Hernandez) Scheduled Medication Order 03/21/2023 03/22/2023 03/23/2023 0.9 % sodium chloride bolus (COMPLETED) 1,000 mL, IntraVENous, at 983.6 mL/hr, Administer over 61 Minutes, ONCE, On 03/23/23 at 1815, For 1 dose 190 (New Bag - Prov ider: Mouna Shah, NU)2004 (Stopped - Provider: Mouna Shah RN) promethazine (PHENERGAN) tablet 25 mg (COMPLETED) 25 mg, Oral, ONCE, 1 dose, On 03/23/23 at 1830 1904 (Given - Provid er: Mouna Shah RN) Scheduled Medication Order 11/22/2023 11/23/2023 11/24/2023 dicyclomine (BENTYL) injection 20 mg (COMPLETED) 20 mg, IntraMUSCular, ONCE, 1 dose, On 11/23/23 at 2345 2359 (Given - Provider: Navi Lockwood RN) HYDROcodone-acetaminophen (NORCO) 5-325 MG per tablet 1 tablet (COMPLETED) 1 tablet, Oral, ONCE, 1 dose, On 11/23/23 at 2145, Maximum dose of acetaminophen is 4000 mg from all sources in 24 hours. 214 (Given - Provider: Navi Lockwood, NU) hydrocodone-acetaminophen (NORCO) tablet 5-325 mg (STARTER PACK) [...] PRN, 1 dose, Starting on 11/23/23 at 2144, Until Discontinued, Other 2237 (Given - Provider: Isidra Gomez Shock) Scheduled Medication Order 01/02/2024 01/03/2024 01/04/2024 famotidine (PEPCID) 20 mg in sodium chloride (PF) 0.9 % 10 mL injection (COMPLETED) 20 mg, IntraVENous, ONCE, 1 dose, On 01/04/24 at 2045, IV Push over minimum of 2 minutes [...] (New Bag - Prov ider: Mouna Pearson RN)2199 (Stopped - Provider: Navi Lockwood RN) PRN Medication Order 01/28/2024 01/29/2024 01/30/2024 iopamidol (ISOVUE-370) 76 % injection 75 mL (COMPLETED) 75 mL, IntraVENous, IMG ONCE PRN, 1 dose, Starting on Emiliana 01/30/24 at 1836, Until Emiliana 01/30/24 at 1841, Other 184 (Given - Provid er: Kayla Polanco) Scheduled Medication Order 02/03/2024 02/04/2024 02/05/2024 diphenoxylate-atropine (LOMOTIL) 2.5-0.025 MG per tablet 1 tablet (COMPLETED) 1 tablet, Oral, ONCE, 1 dose, On Sat02/05/24 at 2030 2025 (Given - Provid er: Katarzyna Tobin RN) metoclopramide (REGLAN) injection 10 mg (COMPLETED) 10 mg, IntraMUSCular, ONCE, 1 dose, On Sat02/05/24 at 2030, IV Push: Max 10 mg over 1-2 minutes. 2025 (Given - Provid er: Katarzyna Tobin RN) ondansetron (ZOFRAN-ODT) disintegrating tablet 4 mg (COMPLETED) 4 mg, Oral, ONCE, 1 dose, On Sat02/05/24 at 2100 2053 (Given - Provid er: Kaylie Mercedes RN) PRN Medication Order 02/03/2024 02/04/2024 02/05/2024 hyoscyamine (LEVSIN/SL) sublingual tablet 125 mcg 125 mcg, SubLINGual, EVERY 4 HOURS PRN, Starting on Sat02/05/24 at 2049, Until Discontinued, Cramping 2052 (Given - Provid [...] dose 1241 (New Bag - Prov ider: Naomie Polanco RN)1445 (Stopped - Provider: Magali Roldan RN) Scheduled Medication Order 07/06/2024 07/07/2024 07/08/2024 dicyclomine (BENTYL) capsule 10 mg (CANCELED) 10 mg, Oral, 4 TIMES DAILY BEFORE MEALS & NIGHTLY, First dose on Sat07/07/24 at 1700, Until Discontinued 1542 (Given - Provider: Kathia Hernandez, RN)2056 (Given - Provider: Garima Saini, NU) 0713 (Given - Provider: Brooke Elmore, NU) [...] 60 minutes of last blood glucose check 170 (Not Given - Provider: Kathia Hernandez RN [...] RN)2056 (Given - Provider: Garima Saini RN) 09 (Given - Provider: Brooke Elmore RN)124 (Given - Provider: Brooke Elmore RN)1700 (Due)2100 [...] Hernandez RN) 0713 (Given - Provider: Brooke Elmore, RN) prochlorperazine (COMPAZINE) injection 10 mg (COMPLETED) [...] Hernandez RN) 1256 (Stopped - Provider: Brooke Elmore, NU) PRN Medication Order 07/06/2024 07/07/2024 07/08/2024 0.9 [...] 24 hours. 0855 (Given - Provid er: Darryl Capellan RN) ibuprofen (ADVIL;MOTRIN) tablet 800 mg (COMPLETED) 800 mg, Oral, ONCE, 1 dose, On Sat10/14/23 at 0845 0855 (Given - Provid er: Darryl Capellan RN) Scheduled Medication Order 10/19/2024 10/20/2024 [...] RN) 0847 (Given - Provider: Rimma Montesinos RN)2100 (Due) FLUoxetine (PROZAC) capsule 10 mg 10 mg, Oral, DAILY, First dose on Sat10/20/24 at 1600, Until Discontinued 1558 (Given - Provider: Michaelle Quintana RN) 0847 (Given - Provider: Rimma Montesinos RN) glipiZIDE (GLUCOTROL) tablet 20 mg 20 mg, Oral, 2 TIMES DAILY BEFORE MEALS, First dose on Sat10/20/24 at 1600, Until Discontinued, On hold since Sat10/20/2024 at 1533 until manually unheld 153 (Held by provider - Provider: OSMAR Purdy CNP - Reason: Other)1600 (Automatically Held) 0700 (Automatically [...] since Sat10/20/2024 at 1533 until manually unheld 153 (Held by provider - Provider: OSMAR Purdy CNP - Reason: Other)2100 (Automatically Held) 2100 (Automatically Held) lidocaine 4 % external patch 1 patch 1 patch, Topical, Administer over 12 Hours, DAILY, First dose on Sat10/20/24 at 1600, Substituted for Lidocaine 5% Patch. The financial services associate's recommendations for the number of patches that can be applied within a 24-hour period varies from 1 to 4 times daily and the duration of application varies from 8 to 24 hours; refer to the financial services associate's labeling for product-specific recommendations. 1558 (Patch Applied [...] after administration. 0936 (Given - Provider: Christy Tafoya, NU) sodium chloride 0.9 % bolus 1,000 mL (COMPLETED) 1,000 mL (9.18 mL/kg), IntraVENous, at 1,000 mL/hr, Administer over 1 Hours, ONCE, On Sat10/20/24 at 0930, For 1 dose 0936 (New Bag - Provider: Christy Tafoya, NU)1036 (Stopped - Provider: Christy Tafoya RN) sodium [...] Quintana RN)2251 (New Bag - Provider: Garima Sorenson, NU) 0544 (New Bag - Provider: Garima Sorenson, [...] for injection by adding 1 mL of financial services associate-supplied sterile diluent or sterile water for injection [...] hour of each other unless specifically ordered. 1716 (Given - Provider: Gael Chase RN)2007 (Given - Provider: Garima Sorenson RN)231 (See Alternative - Provider: Garima Sorenson RN) [...] RN)2007 (See Alternative - Provider: Garima Sorenson RN)231 (Given - Provider: Garima Sorenson RN) 0548 [...] 25 mg, IntraVENous, ONCE, 1 dose, On Sat11/05/24 at 0015 0006 (Given - Provider: Ana [...] RN) 0854 (Given - Provider: Kathia Hernandez RN)2100 (Due) FLUoxetine (PROZAC) capsule 10 mg 10 mg, Oral, Nightly, First dose on Sat11/05/24 at 0300, Until Discontinued 0243 (Not Given - Provider: Anne Hargrove RN - Reason: Patient took at home)2148 (Given - Provider: Josephine Payton RN) 2100 (Due) glipiZIDE (GLUCOTROL) tablet 20 mg 20 mg, Oral, 2 TIMES DAILY BEFORE MEALS, First dose on Sat11/05/24 at 0700, Until Discontinued 0710 (Held - Provider: Aliyah [...] at 0200 0158 (Given - Provider: Ana vEans RN) insulin glargine (LANTUS) injection vial 25 [...] ONCE, 1 dose, On Sat11/05/24 at 0215 0205 (Given - Provider: Ana [...] on Sat11/05/24 at 0900, Until Discontinued 0710 (Not Given [...] IV 0246 (New Bag - Provider: Anne Hargrove, RN)0246 (Rate/Dose Verify - Provider: Josephine Payton RN)1239 (Stopped - Provider: Josephine Payton RN)1241 (Stopped - Provider: Josephine Payton RN)1241 (New Bag - Provider: Chapin Whitaker, NU)2105 (Paused - Provider: Josephine Payton RN)2147 (Restarted - Provider: Josephine Payton RN)2332 (Rate/Dose Verify - Provider: Josephine Payton RN)2335 (Stopped - Provider: Josephine Payton RN) PRN [...] used. 0952 (Given - Provider: Aliyah Webster RN)2158 (Given - Provider: Josephine Payton RN) ondansetron (ZOFRAN-ODT) disintegrating tablet 4 mg(Linked Group 3) 4 mg, Oral, EVERY 8 HOURS PRN, Starting on Emiliana 11/05/24 at 0235, Until Discontinued, Nausea, Vomiting 0952 (See Alternative - Provider: Aliyah Webster RN)2158 [...] after administration. 1412 (Given - Provider: Aliyah Webster, NU) sodium chloride flush 0.9 % injection 10 [...] (New Bag - Prov ider: Abbi Cui RN)022 (Stopped - Provider: Katarzyna Tobin RN) Scheduled Medication Order 02/03/2025 02/04/2025 02/05/2025 diphenhydrAMINE (BENADRYL) injection 25 mg (COMPLETED) 25 mg, IntraVENous, ONCE, 1 dose, On Sat02/05/25 at 204, IV Push at rate not to exceed 25 mg/min. 2102 (Given - Provid er: Mouna Shah RN) droPERidol (INAPSINE) injection 1.25 mg (COMPLETED) 1.25 mg, IntraVENous, ONCE, 1 dose, On Sat02/05/25 at 2145 214 (Given - Provid er: oMuna Shah RN) prochlorperazine (COMPAZINE) injection 10 mg [...] ONCE, 1 dose, On Sat02/09/25 at 1900 1901 (Given - Provid er: Milvia Kendrick [...] at 1911, Until Sat02/09/25 at 1938, Other 1938 (Given - Provid er: Kesha Barry) Linked Groups Order Group 1: Saline lock IV (COMPLETED) Routine, CONTINUOUS, Starting on Sat02/09/25 at 1845, Until Specified And sodium chloride flush 0.9 % injection 3 mLJump to med 3 mL, IntraVENous, EVERY 8 HOURS, First dose on Sat02/09/25 at 1900, Until Discontinued, Flush line with 3-5 mL Scheduled Medication Order 06/11/2025 06/12/2025 06/13/2025 ipratropium 0.5 mg-albuterol 2.5 mg (DUONEB) nebulizer solution 1 Dose (COMPLETED) 1 Dose, Inhalation, NOW, 1 dose, On Sat06/13/25 at 1945, Initiate RT Bronchodilator Protocol: No 1957 (Given - Provid er: Keturah Liz RCP) methylPREDNISolone sodium succ (SOLU-MEDROL) 125 mg in sterile water 2 mL injection 125 mg, IntraVENous, ONCE, On Sat06/13/25 at 1945, For 1 dose, Reconstitute 125 mg vial with 2 mL diluent. 2017 (Held - Provide r: Mouna Olmos RN - Reason: Patient/family refused - Comment: pt wants to wait at this time d/t diabetic and sugar is 336 and feeling better after breathing tx) Scheduled Medication Order 06/20/2025 06/21/2025 06/22/2025 magnesium citrate solution 296 mL 296 mL, Oral, ONCE, 1 dose, On Sat06/22/25 at 1045, Administer each dose with 8 oz (240 mL) of water. 1045 (Due) ondansetron (ZOFRAN) injection 4 mg (COMPLETED) 4 mg, IntraVENous, ONCE, 1 dose, On Sat06/22/25 at 0915 0932 (Given - Provid er: Khadra Casanova RN) sodium chloride 0.9 % bolus 1,000 mL (COMPLETED) 1,000 mL (8.82 mL/kg), IntraVENous, at 983.6 mL/hr, Administer over 61 Minutes, ONCE, On Sat06/22/25 at 0915, For 1 dose 0932 (New Bag - Prov ider: Khadra Casanova RN)1045 (Stopped - Provider: Humble Jarvis RN) Scheduled Medication Order 06/20/2025 06/21/2025 06/22/2025 ibuprofen (ADVIL;MOTRIN) tablet 400 mg (COMPLETED) 400 mg, Oral, ONCE, 1 dose, On Sat06/22/25 at 1830 1841 (Given - Provid er: Mray Lebron RN) Care Teams (unrecognized sec tion and content) Catalyst Unit Operator Relationship Specialty Start Date End Date Yossi Golden MD [address] [place] [address] PCP - General Family Medicine 09/28/18 Catalyst Unit Operator Relationship Specialty Start Date End Date Yossi Golden MD [address] [place] [address] PCP - General Family Medicine 09/28/18 Catalyst Unit Operator Relationship Specialty Start Date End Date Yossi Golden MD [address] [place] [address] PCP - General Family Medicine 09/28/18 Catalyst Unit Operator Relationship Specialty Start Date End Date Yossi Golden MD [address] [place] [address] PCP - General Family Medicine 09/28/18 Catalyst Unit Operator Relationship Specialty Start Date End Date Yossi Golden MD [address] [place] [address] PCP - General Family Medicine 09/28/18 Catalyst Unit Operator Relationship Specialty Start Date End Date Yossi Golden MD [address] [place] [address] PCP - General Family Medicine 09/28/18 Catalyst Unit Operator Relationship Specialty Start Date End Date Yossi Golden MD [address] [place] [address] PCP - General Family Medicine 09/28/18 Catalyst Unit Operator Relationship Specialty Start Date End Date Yossi Golden MD [address] [place] [address] PCP - General Family Medicine 09/28/18 Catalyst Unit Operator Relationship Specialty Start Date End Date Yossi Gloden MD [address] [place] [address] PCP - General Family Medicine 09/28/18 Catalyst Unit Operator Relationship Specialty Start Date End Date Yossi Golden MD [address] [place] [address] PCP - General Family Medicine 09/28/18 Catalyst Unit Operator Relationship Specialty Start Date End Date Yossi Golden MD [address] [place] [address] PCP - General Family Medicine 09/28/18 Catalyst Unit Operator Relationship Specialty Start Date End Date Yossi Golden MD [address] [place] [address] PCP - General Family Medicine 09/28/18 Catalyst Unit Operator Relationship Specialty Start Date End Date Yossi Golden MD [address] [place] [address] PCP - General Family Medicine 09/28/18 Catalyst Unit Operator Relationship Specialty Start Date End Date Yossi Golden MD [address] [place] [address] PCP - General Family Medicine 09/28/18 Catalyst Unit Operator Relationship Specialty Start Date End Date Yossi Golden MD [address] [place] [address] PCP - General Family Medicine 09/28/18 Catalyst Unit Operator Relationship Specialty Start Date End Date Yossi Golden MD [address] [place] [address] PCP - General Family Medicine 09/28/18 Catalyst Unit Operator Relationship Specialty Start Date End Date Yossi Golden MD [address] [place] [address] PCP - General Family Medicine 09/28/18 Catalyst Unit Operator Relationship Specialty Start Date End Date Yossi Golden MD [address] [place] [address] PCP - General Family Medicine 09/28/18 Catalyst Unit Operator Relationship Specialty Start Date End Date Yossi Golden MD [address] [place] [address] PCP - General Family Medicine 09/28/18 Catalyst Unit Operator Relationship Specialty Start Date End Date Yossi Golden MD [address] [place] [address] PCP - General Family Medicine 09/28/18 Catalyst Unit Operator Relationship Specialty Start Date End Date Yossi Golden MD [address] [place] [address] PCP - General Family Medicine 03/20/23 Catalyst Unit Operator Relationship Specialty Start Date End Date Yossi Golden MD [address] [place] [address] PCP - General Family Medicine 03/20/23 Catalyst Unit Operator Relationship Specialty Start Date End Date Yossi Golden MD [address] [place] [address] PCP - General Family Medicine 09/28/18 Catalyst Unit Operator Relationship Specialty Start Date End Date Yossi Golden MD [address] [place] [address] PCP - General Family Medicine 03/20/23 Catalyst Unit Operator Relationship Specialty Start Date End Date Yossi Golden MD [address] [place] [address] PCP - General Family Medicine 09/28/18 Catalyst Unit Operator Relationship Specialty Start Date End Date Yossi Golden MD [address] [place] [address] PCP - General Family Medicine 03/20/23 [employer] Unit Operator Relationship Specialty Start Date End Date Yossi Golden MD [address] [place] [address] PCP - General Family Medicine 03/20/23 Catalyst Unit Operator Relationship Specialty Start Date End Date Yossi Golden MD [address] [place] [address] PCP - General Family Medicine 03/20/23 [employer] Unit Operator Relationship Specialty Start Date End Date Yossi Golden MD [address] [place] [address] PCP - General Family Medicine 03/20/23 [employer] Unit Operator Relationship Specialty Start Date End Date Yossi Golden MD [address] [place] [address] PCP - General Family Medicine 03/20/23 [employer]yst Unit Operator Relationship Specialty Start Date End Date Aly Beverly MD [address] [address] Referring Internal Medicine 09/15/24 [employer] Unit Operator Relationship Specialty Start Date End Date Yossi Golden MD [address] [place] [address] PCP - General Family Medicine 03/20/23 [employer] Unit Operator Relationship Specialty Start Date End Date Yossi Golden MD [address] [place] [address] PCP - General Family Medicine 09/28/18 [employer] Unit Operator Relationship Specialty Start Date End Date Yossi Golden MD [address] [place] [address] PCP - General Family Medicine 03/20/23 Catal[employer] Unit Operator Relationship Specialty Start Date End Date Yossi Golden MD [address] [place] [address] PCP - General Family Medicine 09/28/18 [employer] Unit Operator Relationship Specialty Start Date End Date Yossi Golden MD [address] [place] [address] PCP - General Family [facility] 09/28/18 Catalyst Unit Operator Relationship Specialty Start Date End Date Yossi Golden MD [address] [place] [phone] PCP - General Family [facility] 03/20/23 Yossi Golden MD [address] [place] [phone] PCP - [facility] 09/23/24 Catal[employer] Unit Operator Relationship Specialty Start Date End Date Yossi Golden MD [address] [place] [address] PCP - General Family [facility] 09/28/18 Catal[employer] Unit Operator Relationship Specialty Start Date End Date Aly Beverly MD [address] [place] [address] Referring Internal Medicine 09/15/24 Catal[employer] Unit Operator Relationship Specialty Start Date End Date Aly Beverly MD [address] [facility] [place] [address] Referring Internal Medicine 09/15/24 [employer] Unit Operator Relationship Specialty Start Date End Date Aly Beverly MD [address] [facility] [place] [address] Referring Internal Medicine 09/15/24 [employer] Unit Operator Relationship Specialty Start Date End Date Aly Beverly MD [address] [facility] [place] [address] Referring Internal Medicine 09/15/24 Catal[employer] Unit Operator Relationship Specialty Start Date End Date Aly Beverly MD [address] [place] [address] Referring Internal Medicine 09/15/24 Catal[employer] Unit Operator Relationship Specialty Start Date End Date Aly Beverly MD [address] [place] [address] Referring Internal Medicine 09/15/24 Catal[employer] Unit Operator Relationship Specialty Start Date End Date Aly Beverly MD [address] [place] [address] Referring Internal Medicine 09/15/24 Catal[employer] Unit Operator Relationship Specialty Start Date End Date Yossi Golden MD [address] [place] [phone] PCP - General Family Medicine 09/28/18 [employer] Unit Operator Relationship Specialty Start Date End Date Yossi Golden MD [address] [place] [phone] PCP - General Family Medicine 03/20/23 Yossi Golden MD [address] [place] [phone] PCP - [facility] 09/23/24 Catal[employer] Unit Operator Relationship Specialty Start Date End Date Aly Beverly MD [address] [place] [address] Referring Internal Medicine 09/15/24 Catal[employer] Unit Operator Relationship Specialty Start Date End Date Aly Beverly MD [address] [place] [address] Referring Internal Medicine 09/15/24 [employer] Unit Operator Relationship Specialty Start Date End Date Aly Beverly MD [address] [place] [address] Referring Internal Medicine 09/15/24 [employer] Unit Operator Relationship Specialty Start Date End Date Aly Beverly MD [address] [place] [address] Referring Internal Medicine 09/15/24 [employer] Unit Operator Relationship Specialty Start Date End Date Yossi Golden MD [address] [place] [phone] PCP - General Family Medicine 09/28/18 [employer] Unit Operator Relationship Specialty Start Date End Date Yossi Golden MD [address] [place] [phone] PCP - General Family Medicine 09/28/18 [employer] Unit Operator Relationship Specialty Start Date End Date Aly Beverly MD [address] [place] [address] Referring Internal Medicine 09/15/24 [employer] Unit Operator Relationship Specialty Start Date End Date Aly Beverly MD [address] [facility] [place] [address] Referring Internal Medicine 09/15/24 Catal[employer] Unit Operator Relationship Specialty Start Date End Date Aly Beverly MD [address] [facility] [address] [address] Referring Internal Medicine 09/15/24 Catal[employer] Unit Operator Relationship Specialty Start Date End Date Yossi Golden MD [address] [place] [phone] PCP - General Family Medicine 09/28/18 [employer] Unit Operator Relationship Specialty Start Date End Date Yossi Golden MD [address] [place] [phone] PCP - General Family Medicine 09/28/18 [employer] Unit Operator Relationship Specialty Start Date End Date Yossi Golden MD [address] [place] [address] PCP - General Family Medicine 09/28/18 INFORMATION SOURCE (unrecogn ized section and content) DATE CREATED AUTHOR 12/29/2022 [facility] DATE CREATED AUTHOR AUTHOR'S ORGANIZ ATION 04/29/2024 [facility] DATE CREATED AUTHOR AUTHOR'S ORGANIZ ATION 05/23/2024 [facility] DATE CREATED AUTHOR AUTHOR'S ORGANIZ ATION 05/24/2024 [facility] DATE CREATED AUTHOR AUTHOR'S ORGANIZ ATION 06/10/2024 [facility] DATE CREATED AUTHOR AUTHOR'S ORGANIZ ATION 06/21/2024 [facility] DATE CREATED AUTHOR AUTHOR'S ORGANIZ ATION 06/30/2024 [facility] DATE CREATED AUTHOR AUTHOR'S ORGANIZ ATION 07/07/2024 [facility] DATE CREATED AUTHOR AUTHOR'S ORGANIZ ATION 07/31/2024 [facility] DATE CREATED AUTHOR AUTHOR'S ORGANIZ ATION 08/09/2024 [facility] DATE CREATED AUTHOR AUTHOR'S ORGANIZ ATION 08/10/2024 [facility] DATE CREATED AUTHOR AUTHOR'S ORGANIZ ATION 08/11/2024 [facility] DATE CREATED AUTHOR AUTHOR'S ORGANIZ ATION 08/16/2024 [facility] DATE CREATED AUTHOR AUTHOR'S ORGANIZ ATION 08/17/2024 [facility] DATE CREATED AUTHOR AUTHOR'S ORGANIZ ATION 08/25/2024 [facility] DATE CREATED AUTHOR AUTHOR'S ORGANIZ ATION 09/05/2024 [facility] DATE CREATED AUTHOR AUTHOR'S ORGANIZ ATION 09/11/2024 [facility] DATE CREATED AUTHOR AUTHOR'S ORGANIZ ATION 09/13/2024 [facility] DATE CREATED AUTHOR AUTHOR'S ORGANIZ ATION 10/06/2024 [facility] DATE CREATED AUTHOR AUTHOR'S ORGANIZ ATION 10/08/2024 [facility] DATE CREATED AUTHOR AUTHOR'S ORGANIZ ATION 10/09/2024 [facility] DATE CREATED AUTHOR AUTHOR'S ORGANIZ ATION 10/11/2024 [facility] DATE CREATED AUTHOR AUTHOR'S ORGANIZ ATION 10/11/2024 [facility] DATE CREATED AUTHOR AUTHOR'S ORGANIZ ATION 10/15/2024 [facility] DATE CREATED AUTHOR AUTHOR'S ORGANIZ ATION 01/29/2025 [facility] DATE CREATED AUTHOR AUTHOR'S ORGANIZ ATION 01/31/2025 [facility] DATE CREATED AUTHOR AUTHOR'S ORGANIZ ATION 01/31/2025 [facility] DATE CREATED AUTHOR AUTHOR'S ORGANIZ ATION 02/07/2025 [facility] DATE CREATED AUTHOR AUTHOR'S ORGANIZ ATION 02/19/2025 [facility] DATE CREATED AUTHOR AUTHOR'S ORGANIZ ATION 04/06/2025 [facility] DATE CREATED AUTHOR AUTHOR'S ORGANIZ ATION 05/28/2025 [facility] DATE CREATED AUTHOR AUTHOR'S ORGANIZ ATION 06/30/2025 Elenita silva Source Comments (unrecognize d section and content) In the event this informatio n is protected by the Federal Confidentiality of Alcohol and Drug Abuse Patient Records regulations: The Federal rules restrict any use of the information to criminally investigate or prosecute any alcohol or drug abuse patient.[facility] the event this information is protected by the Federal Confidentiality of Alcohol and Drug Abuse Patient Records regulations: The Federal rules restrict any use of the information to criminally investigate or prosecute any alcohol or drug abuse patient.[facility] Institute[facility] the event this information is protected by the Federal Confidentiality of Alcohol and Drug Abuse Patient Records regulations: The Federal rules restrict any use of the information to criminally investigate or prosecute any alcohol or drug abuse patient.[facility] Institute[facility] the event this information is protected by the Federal Confidentiality of Alcohol and Drug Abuse Patient Records regulations: The Federal rules restrict any use of the information to criminally investigate or prosecute any alcohol or drug abuse patient.[facility] the event this information is protected by the Federal Confidentiality of Alcohol and Drug Abuse Patient Records regulations: The Federal rules restrict any use of the information to criminally investigate or prosecute any alcohol or drug abuse patient.[facility] Institute[facility] the event this information is protected by the Federal Confidentiality of Alcohol and Drug Abuse Patient Records regulations: The Federal rules restrict any use of the information to criminally investigate or prosecute any alcohol or drug abuse patient.[facility] Institute[facility] the event this information is protected by the Federal Confidentiality of Alcohol and Drug Abuse Patient Records regulations: The Federal rules restrict any use of the information to criminally investigate or prosecute any alcohol or drug abuse patient.[facility] Institute[facility] the event this information is protected by the Federal Confidentiality of Alcohol and Drug Abuse Patient Records regulations: The Federal rules restrict any use of the information to criminally investigate or prosecute any alcohol or drug abuse patient.[facility] Institute[facility] the event this information is protected by the Federal Confidentiality of Alcohol and Drug Abuse Patient Records regulations: The Federal rules restrict any use of the information to criminally investigate or prosecute any alcohol or drug abuse patient.[facility] Institute[facility] the event this information is protected by the Federal Confidentiality of Alcohol and Drug Abuse Patient Records regulations: The Federal rules restrict any use of the information to criminally investigate or prosecute any alcohol or drug abuse patient.[facility] Institute[facility] the event this information is protected by the Federal Confidentiality of Alcohol and Drug Abuse Patient Records regulations: The Federal rules restrict any use of the information to criminally investigate or prosecute any alcohol or drug abuse patient.[facility] Institute[facility] the event this information is protected by the Federal Confidentiality of Alcohol and Drug Abuse Patient Records regulations: The Federal rules restrict any use of the information to criminally investigate or prosecute any alcohol or drug abuse patient.[facility] Institute[facility] the event this information is protected by the Federal Confidentiality of Alcohol and Drug Abuse Patient Records regulations: The Federal rules restrict any use of the information to criminally investigate or prosecute any alcohol or drug abuse patient.[facility] InstituteIn the event this information is protected by the Federal Confidentiality of Alcohol and Drug Abuse Patient Records regulations: The Federal rules restrict any use of the information to criminally investigate or prosecute any alcohol or drug abuse patient.[facility] InstituteIn the event this information is protected by the Federal Confidentiality of Alcohol and Drug Abuse Patient Records regulations: The Federal rules restrict any use of the information to criminally investigate or prosecute any alcohol or drug abuse patient.[facility] InstituteIn the event this information is protected by the Federal Confidentiality of Alcohol and Drug Abuse Patient Records regulations: The Federal rules restrict any use of the information to criminally investigate or prosecute any alcohol or drug abuse patient.[facility] InstituteIn the event this information is protected by the Federal Confidentiality of Alcohol and Drug Abuse Patient Records regulations: The Federal rules restrict any use of the information to criminally investigate or prosecute any alcohol or drug abuse patient.[facility] FOR RECORDS PERTAINING TO PATIENTS WHO ARE [...] BE BASED ON THE PRIMARY CLINICAL RECORDS. [facility]. provides no warranty or guarantee of the accuracy or completeness of information in this document.
[2025-07-10 19:33] LABS: Glucose Urine UA >=1000 mg/dL (NEGATIVE)
[2025-07-10 19:40] LABS: Cast Seen? NONE SEEN #/LPF (NONE SEEN); Crystals Seen? None Seen #/HPF (None Seen); Urine Culture Indicated NO
--- NOTE | 2025-07-10 19:42 | ED.RECABL1 ---
HPI - Recheck/Abnormal Lab/Rx General Chief Complaint: Recheck/Abnormal Lab/Rx Stated Complaint: Hyperglycemia Time Seen by Provider: 07/10/25 19:35 Source: patient Mode of arrival: walk-in History of Present Illness HPI narrative: patient type II IDDM. Patient presents today for hyperglycemia. States she vomited x 2 . no fever. Mild abdominal cramping. does have diarrhea but this is not uncommon Related Data Home Medications ?Medication ?Instructions ?Recorded ?Confirmed albuterol 90 mcg/actuation aerosol 90 mcg inhalation QDAY PRN dyspnea 03/25/23 05/25/25 inhaler glipizide 10 mg tablet 20 mg PO BID 03/25/23 05/25/25 hydroxyzine HCl 25 mg tablet 25 mg PO TID PRN itching 03/25/23 05/25/25 sertraline 50 mg tablet (Zoloft) 50 mg PO DAILY 03/25/23 05/25/25 tizanidine 4 mg capsule (Zanaflex) 4 mg PO TID PRN muscle spasticity 03/25/23 05/25/25 hyoscyamine sulfate 0.375 mg 0.375 mg PO .q12hr PRN cramping 01/20/24 02/10/24 tablet,extended release,12 hr ondansetron HCl 4 mg tablet 4 mg PO Q8H PRN nausea and vomiting 01/20/24 02/10/24 Previous Rx's ?Medication ?Instructions ?Recorded ondansetron 4 mg disintegrating 4 mg PO Q6H PRN nausea and 04/05/24 tablet vomiting #12 tabs ondansetron 4 mg disintegrating 4 mg PO Q6H PRN nausea and 04/14/24 tablet vomiting #20 tabs cephalexin 500 mg capsule 500 mg PO Q6H 10 days #40 caps 05/25/25 doxycycline monohydrate 100 mg 100 mg PO BID 10 days #20 caps 05/25/25 capsule Allergies Allergy/AdvReac Type Severity Reaction Status Date / Time amoxicillin Allergy Nausea Verified 05/25/25 19:40 egg Allergy Abdominal Verified 05/25/25 19:40 Pain ketorolac Allergy dyspnea Verified 05/25/25 19:40 latex Allergy itching Verified 05/25/25 19:40 meperidine (From Demerol) Allergy shortness Verified 05/25/25 19:40 of breath Penicillins Allergy Rash Verified 05/25/25 19:40 Review of Systems ROS Status of ROS 10 or more systems reviewed and unremarkable except as noted in history and below PFSH PFS Medical History H/O methicillin resistant Staphylococcus aureus ?Z86.14 - Personal history of Methicillin resistant Staphylococcus aureus infection (ICD-10) 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 - Acquired stenosis of unspecified nasolacrimal duct (ICD-10) H/O thrombosis ?Z86.718 - Personal history of other venous thrombosis and embolism (ICD-10) Low back pain ?M54.50 - Low back pain, unspecified (ICD-10) Heartburn ?R12 - Heartburn (ICD-10) Anxiety ?F41.9 - Anxiety disorder, unspecified (ICD-10) Acid reflux ?K21.9 - Gastro-esophageal reflux disease without esophagitis (ICD-10) Diabetes ?E11.9 - Type 2 diabetes mellitus without complications (ICD-10) Smoker ?F17.200 - Nicotine dependence, unspecified, uncomplicated (ICD-10) Surgical History Social History Smoking status: Current every day smoker Little interest or pleasure in doing things: not at all Feeling down, depressed, or hopeless: not at all Exam Constitutional Vital Signs, click to edit/add: Last Vital Signs Temp 98.7 F 07/10/25 19:05 Pulse 102 H 07/10/25 19:05 Resp 18 07/10/25 19:05 BP 150/106 H 07/10/25 19:05 Pulse Ox 95 07/10/25 19:05 O2 Del Method Room Air 07/10/25 19:05 Common normals: no apparent distress, average body habitus, oriented x3, no limitations, healthy appearing, alert and well nourished [facility] Common normals: normocephalic and head/scalp atraumatic Eye Common normals: PERRL and EOMs intact bilaterally Respiratory Common normals: normal respiratory effort, no retractions, no use of accessory muscles and clear to auscultation bilaterally Cardio Common normals: regular rate, regular rhythm, S1 normal heart sound and S2 normal heart sound GI Common normals: Normal to inspection, nondistended, normoactive bowel sounds present, soft to palpation and non-tender Extremity Common normals: normal to inspection and full ROM Neuro Common normals: oriented x3, CN's II-XII intact bilaterally, moves all extremities and no focal motor deficits Psych Appearance: grossly normal Course Vital Signs Vital signs: Vital Signs Temperature 98.7 F 07/10/25 19:05 Pulse Rate 102 H 07/10/25 19:05 Respiratory Rate 18 07/10/25 19:05 Blood Pressure 150/106 H 07/10/25 19:05 Pulse Oximetry 95 07/10/25 19:05 Oxygen Delivery Method Room Air 07/10/25 19:05 Temperature 98.7 F 07/10/25 19:05 Pulse Rate 102 H 07/10/25 19:05 Respiratory Rate 18 07/10/25 19:05 Blood Pressure 150/106 H 07/10/25 19:05 Pulse Oximetry 95 07/10/25 19:05 Oxygen Delivery Method Room Air 07/10/25 19:05 MDM - Recheck/Abnormal Lab/Rx MDM Narrative Medical decision making narrative: presents with hyperglycemia. states she did vomit. No fever. has chronic abdominal cramping pain which she contributes to gastroparesis. Abdominal exam neg. In the ER found to be hyperglycemic but not in DKA BS improved from 412 to 197 prior to discharge. lactic acid improved with hydration. Acetone neg. Patient feeling better and will follow up with her doctor Lab Data Labs: Lab Results 07/10/25 07/10/25 07/10/25 Range/Units 19:11 19:14 19:35 WBC 12.6 H (4.0-11.0) 10^3/uL RBC 4.73 (4.20-5.40) 10^6/uL Hgb 14.6 (12.0-16.0) g/dL Hct 42.5 (36.0-48.0) % MCV 89.9 (81.0-99.0) fL MCH 30.9 (26.7-34.0) pg MCHC 34.4 (29.9-35.2) g/dL RDW 12.9 (11.0-15.0) % Plt Count 309 (150-450) 10^3/uL MPV 10.7 (9.5-13.5) fL Seg Neuts % (Manual) 61.0 (43.0-75.0) Lymphocytes % (Manual) 36.0 (20.5-60.0) % Monocytes % (Manual) 3.0 (1.7-12.0) % Eosinophils % (Manual) 0.0 L (0.9-7.0) % Basophils % (Manual) 0.0 L (0.2-2.0) % Neutrophils # (Manual) 7.68 H (1.4-6.5) 10^3/uL Lymphocytes # (Manual) 4.53 H (1.20-3.80) 10^3/uL Monocytes # (Manual) 0.37 (0.30-0.80) 10^3/uL Eosinophils # (Manual) 0.00 (0.00-0.70) 10^3/uL Basophils # (Manual) 0.00 (0.00-0.10) 10^3/uL Sodium 137 (136-145) mmol/L Potassium 4.1 (3.5-5.1) mmol/L Chloride 98 (98-107) mmol/L Carbon Dioxide 22.2 (21.0-32.0) mmol/L Anion Gap 20.9 BUN 10.0 (7.0-18.0) mg/dL Creatinine 0.88 (0.55-1.02) mg/dL Est GFR ( Amer) >60 (>=60 mL/min/1.73m^2) Est GFR (Non-Af Amer) >60 (>=60 mL/min/1.73m^2) BUN/Creatinine Ratio 11.4 Glucose 381 H (74-106) mg/dL Lactate 3.9 H* (0.4-2.0) mmol/L Calcium 9.4 (8.5-10.1) mg/dL Total Bilirubin 0.2 (0.2-1.0) mg/dL AST 55 H (15-37) U/L ALT 68 H (14-59) U/L Alkaline Phosphatase 110 (46-116) U/L Total Protein 8.2 (6.4-8.2) g/dL Albumin 3.8 (3.4-5.0) g/dL Globulin 4.4 g/dL Albumin/Globulin Ratio 0.9 Urine Color Lt. yellow (YELLOW) Urine Clarity Clear (CLEAR) Urine pH 5.5 (5.0-9.0) Ur Specific [place] 1.010 (1.005-1.025) Urine Protein Negative (NEG/TRACE) mg/dL Urine Glucose (UA) >=1000 A (NEGATIVE) mg/dL Urine Ketones Trace A (NEGATIVE) mg/dL Urine Occult Blood Negative (NEGATIVE) Urine Nitrite Negative (NEGATIVE) Urine Bilirubin Negative (NEGATIVE) Urine Urobilinogen 0.2 (0.2-1.0) EU/dL Ur Leukocyte Esterase Negative (NEGATIVE) Urine RBC None seen (0-2) #/HPF Urine WBC 0-2 A (NONE SEEN) #/HPF Ur Squamous Epith Cells Rare (NONE/RARE) #/LPF Urine Crystals None seen (None Seen) #/HPF Urine Bacteria None seen (NONE SEEN) #/HPF Urine Casts None seen (NONE SEEN) #/LPF Urine Mucus None seen (NONE SEEN) Ur Culture Indicated? No Acetone, Qual Negative (NEGATIVE) POC Glucose 412 H (74-106) mg/dL 07/10/25 07/10/25 07/10/25 Range/Units 22:57 23:05 23:57 WBC (4.0-11.0) 10^3/uL RBC (4.20-5.40) 10^6/uL Hgb (12.0-16.0) g/dL Hct (36.0-48.0) % MCV (81.0-99.0) fL MCH (26.7-34.0) pg MCHC (29.9-35.2) g/dL RDW (11.0-15.0) % Plt Count (150-450) 10^3/uL MPV (9.5-13.5) fL Seg Neuts % (Manual) (43.0-75.0) Lymphocytes % (Manual) (20.5-60.0) % Monocytes % (Manual) (1.7-12.0) % Eosinophils % (Manual) (0.9-7.0) % Basophils % (Manual) (0.2-2.0) % Neutrophils # (Manual) (1.4-6.5) 10^3/uL Lymphocytes # (Manual) (1.20-3.80) 10^3/uL Monocytes # (Manual) (0.30-0.80) 10^3/uL Eosinophils # (Manual) (0.00-0.70) 10^3/uL Basophils # (Manual) (0.00-0.10) 10^3/uL Sodium (136-145) mmol/L Potassium (3.5-5.1) mmol/L Chloride (98-107) mmol/L Carbon Dioxide (21.0-32.0) mmol/L Anion Gap BUN (7.0-18.0) mg/dL Creatinine (0.55-1.02) mg/dL Est GFR ( Amer) (>=60 mL/min/1.73m^2) Est GFR (Non-Af Amer) (>=60 mL/min/1.73m^2) BUN/Creatinine Ratio Glucose (74-106) mg/dL Lactate 2.4 H* (0.4-2.0) mmol/L Calcium (8.5-10.1) mg/dL Total Bilirubin (0.2-1.0) mg/dL AST (15-37) U/L ALT (14-59) U/L Alkaline Phosphatase (46-116) U/L Total Protein (6.4-8.2) g/dL Albumin (3.4-5.0) g/dL Globulin g/dL Albumin/Globulin Ratio Urine Color (YELLOW) Urine Clarity (CLEAR) Urine pH (5.0-9.0) Ur Specific [place] (1.005-1.025) Urine Protein (NEG/TRACE) mg/dL Urine Glucose (UA) (NEGATIVE) mg/dL Urine Ketones (NEGATIVE) mg/dL Urine Occult Blood (NEGATIVE) Urine Nitrite (NEGATIVE) Urine Bilirubin (NEGATIVE) Urine Urobilinogen (0.2-1.0) EU/dL Ur Leukocyte Esterase (NEGATIVE) Urine RBC (0-2) #/HPF Urine WBC (NONE SEEN) #/HPF Ur Squamous Epith Cells (NONE/RARE) #/LPF Urine Crystals (None Seen) #/HPF Urine Bacteria (NONE SEEN) #/HPF Urine Casts (NONE SEEN) #/LPF Urine Mucus (NONE SEEN) Ur Culture Indicated? Acetone, Qual (NEGATIVE) POC Glucose 243 H 197 H (74-106) mg/dL Discharge Plan Discharge Chief Complaint: Recheck/Abnormal Lab/Rx Clinical Impression: Hyperglycemia Patient Disposition: Home, Self-Care Prescriptions / Home Meds: No Action hydroxyzine HCl 25 mg tablet 25 mg PO TID PRN (Reason: itching) glipizide 10 mg tablet 20 mg PO BID tizanidine [Zanaflex] 4 mg capsule 4 mg PO TID PRN (Reason: muscle spasticity) sertraline [Zoloft] 50 mg tablet 50 mg PO DAILY albuterol 90 mcg/actuation aerosol 90 mcg inhalation QDAY PRN (Reason: dyspnea) ondansetron HCl 4 mg tablet 4 mg PO Q8H PRN (Reason: nausea and vomiting) hyoscyamine sulfate 0.375 mg tablet extended release 12 hr 0.375 mg PO .q12hr PRN (Reason: cramping) ondansetron 4 mg tablet,disintegrating 4 mg PO Q6H PRN (Reason: nausea and vomiting) Qty: 12 0RF ondansetron 4 mg tablet,disintegrating 4 mg PO Q6H PRN (Reason: nausea and vomiting) Qty: 20 0RF doxycycline monohydrate 100 mg capsule 100 mg PO BID 10 Days Qty: 20 0RF cephalexin 500 mg capsule 500 mg PO Q6H 10 Days Qty: 40 0RF Print Language: Upper Sorbian Instructions: Diabetic Hyperglycemia (ED) Additional Instructions: follow up with your doctor next week Referrals: Yossi Golden MD [Primary Care Provider, Family Practice] - 1 week
[2025-07-10 19:52] LABS: Hematocrit 42.5 % (36.0-48.0); Hemoglobin 14.6 g/dL (12.0-16.0); Mean Corpuscular HGB Conc 34.4 g/dL (29.9-35.2); Mean Corpuscular Hemoglobin 30.9 pg (26.7-34.0); Mean Corpuscular Volume 89.9 fL (81.0-99.0); Platelet Count 309 10^3/uL (150-450); Red Blood Count 4.73 10^6/uL (4.20-5.40); White Blood Count 12.6 10^3/uL (4.0-11.0)
[2025-07-10 20:04] LABS: Alanine Aminotransferase 68 U/L (14-59); Albumin Globulin Ratio 0.9; Albumin Level 3.8 g/dL (3.4-5.0); Alkaline Phosphatase 110 U/L (46-116); Anion Gap 20.9; Aspartate Amino Transferase 55 U/L (15-37); Blood Urea Nitrogen 10.0 mg/dL (7.0-18.0); Calcium 9.4 mg/dL (8.5-10.1); Carbon Dioxide 22.2 mmol/L (21.0-32.0); Chloride 98 mmol/L (98-107); Estimated GFR (African America >60 (>=60 mL/min/1.73m^2); Estimated GFR (Non-African Ame >60 (>=60 mL/min/1.73m^2); Globulin 4.4 g/dL; Glucose 381 mg/dL (74-106); Potassium 4.1 mmol/L (3.5-5.1); Sodium 137 mmol/L (136-145); Total Protein 8.2 g/dL (6.4-8.2)
[2025-07-10 20:10] LABS: Basophils Abs Manual 0.00 10^3/uL (0.00-0.10); Basophils Percent Manual 0.0 % (0.2-2.0); Eosinophils Absolute Manual 0.00 10^3/uL (0.00-0.70); Eosinophils Percent Manual 0.0 % (0.9-7.0); Lymphocytes Absolute Manual 4.53 10^3/uL (1.20-3.80); Lymphocytes Percent Manual 36.0 % (20.5-60.0); Monocytes Absolute Manual 0.37 10^3/uL (0.30-0.80); Monocytes Percent Manual 3.0 % (1.7-12.0); Segmented Neut Absolute Manual 7.68 10^3/uL (1.4-6.5); Segmented Neutrophils % Manual 61.0 (43.0-75.0)
[2025-07-10 20:12] LABS: Lactate/Lactic Acid 3.9 mmol/L (0.4-2.0)
[2025-07-10] MEDS: 0.9 % SODIUM CHLORIDE 1,000 ML 1000 ML IV (20:47)
[2025-07-10] MEDS: INSULIN ASPART 300 UNIT/3 ML PEN 12 UNIT SUBQ (21:58)
[2025-07-10 23:24] LABS: Lactate/Lactic Acid 2.4 mmol/L (0.4-2.0)
[2025-07-11 00:07] VITALS: BP 138/88; PULSE 87; O2SAT 95
== END 2025-07-11 00:10 | disposition home or self-care (01) ==
PROVIDERS: Emergency Provider Internal Medicine; PCP Family Medicine
DX: E11.65 Type 2 diabetes mellitus with hyperglycemia (principal); Z79.84 Long term (current) use of oral hypoglycemic drugs; F17.200 Nicotine dependence, unspecified, uncomplicated
CPT/HCPCS: 36415; 80053; 81001; 82009; 82948; 83605; 85007; 85027; 96360; 99284